=== PATIENT | female | born 1950 | race Caucasian/White ===

== ENCOUNTER → 2020-06-28 14:18 | Outpatient (REF) | payer MEDICARE, SELFPAY ==
--- NOTE | 2020-06-28 14:00 | CA_ITS ---
Transthoracic Echocardiogram Patient (Last, First, Middle): Mary Luo Godwin Z Gender: Female Date of : 1950 Age: 69 Procedure Date: 06/28/2020 Procedure Type: Transthoracic Echocardiogram Location: OP Height: 160.02 cm Weight: 104.33 kg BSA: 2.05 m2 Heart Rate: bpm BP: 128 / 70 mmHg Shaft Tender: Referring MD: Glenn Adames MD Symptoms: R07.2 PRECORDIAL CHEST PAIN I25.10 ASCD Study Quality: Fair ECG Rhythm: Sinus Conclusions: - The left ventricular systolic function is normal. The visually estimated ejection fraction is between 65-70%. - There is mild calcification of the aortic valve. - There is mild mitral annular calcification. - There is mild dilatation of the ascending aorta measuring 3.90 cm. Findings Left Ventricle Normal left ventricular cavity size. There is mildly increased left ventricular wall thickness. The left ventricular systolic function is normal. The visually estimated ejection fraction is between 65-70%. There is no evidence of regional wall motion abnormalities. E/E prime ratio is <8, consistent with normal filling pressures. Evidence suggests grade I (mild) diastolic dysfunction. Right Ventricle Normal right ventricular cavity size and systolic function. Atria The left atrium is moderately dilated. The right atrium is mildly dilated. Aortic Valve There is a normal trileaflet aortic valve. There is mild calcification of the aortic valve. There is no aortic valve stenosis. There is trace (trivial) aortic valve regurgitation. Mitral Valve There is mild mitral annular calcification. There is trace mitral valve regurgitation. There is no mitral valve stenosis. Pulmonic Valve The pulmonic valve was not well visualized. There is trace pulmonic valve regurgitation. Tricuspid Valve Normal tricuspid valve structure. There is trace tricuspid valve regurgitation. The pulmonary artery systolic pressure is normal. Great Vessels There is mild dilatation of the ascending aorta measuring 3.90 cm. Venous The inferior vena cava is normal in size and collapses greater than 50% with inspiration. Pericardium/Pleural There is no evidence of pericardial effusion. Prior Study Comparison No significant change compared to prior study dated: 05/11/2019. Measurements 2D Linear Measurements IVSd: 1.42 0.6-0.9/0.6-1.0 cm LVIDd: 3.58 3.9-5.3/4.2-5.9 cm LVIDd Index: 1.75 2.4-3.2/2.2-3.1 cm/m2 LVIDs: 2.31 2.0-3.6 cm LVPWd: 1.44 0.7-1.1 cm Ao Root: 3.70 2.1-3.5 cm LA Diam: 3.70 2.7-3.8/3.0-4.0 cm LAIDs Index: 1.80 1.5-2.3 cm/m2 LV Mass: 230.06 67-162/88-224 g LV Mass Index: 112.22 43-95/49-115 g/m2 LVOT Diam: 2.30 3.0+(-)1.3 cm Mitral Valve MV Pk E: 0.57 MV PK A: 0.71 MV Decel Time: 261.00 E/A: 0.80 E'Lateral: 6.00 E'Medial: 7.54 E/E' Med: 7.60 E/E' Lat: 9.50 PHT: 76.00 MVA PHT: 2.89 Decel Cambria: 2.20 Aortic Valve AoV Pk Hugh: 1.48 AoV Mn Hugh: 0.99 AoV VTI: 0.32 AoV Pk Grad: 9.00 Aov Mn Grad: 5.00 MICKY Cont.VTI: 2.88 LVOT LVOT Pk Hugh: 0.83 LVOT Mn Hugh: 0.54 LVOT VTI: 0.22 LVOT Pk Grad: 3.00 LVOT Mn Grad: 1.00 LVOT Diam: 2.30 LVOT Area: 4.15 Diastolic Function MV Pk E: 0.57 MV Pk A: 0.71 E/A: 0.80 E'Medial: 7.54 E/E' Med: 7.60 E' Laterial: 6.00 E/E' Lat: 9.50 Tricuspid Valve TR Pk Hugh: 2.14 TR Pk Grad: 18.00 Great Vessels Aorta Ao Root-2D: 3.70 2.0-3.7 cm Ao Asc: 3.90 2.1-3.4 cm Pulmonary Valve PV Pk Hugh: 1.05 Peak PV Grad: 4.00 Updated in Other Vendor System with Status of Final Glenn Adames MD electronically signed on 06/30/2020 10:17:12 AM with status of Final
== END ==
LOC: HO.CARD 14:18
PROVIDERS: PCP Internal Medicine; Visit Provider Internal Medicine
DX: R07.2 Precordial pain (principal); I25.10 Atherosclerotic heart disease of native coronary artery without angina pectoris
CPT/HCPCS: 93306

== ENCOUNTER 2020-07-22 12:07 | Emergency (ER) | payer MEDICARE, SELFPAY ==
--- NOTE | 2020-07-22 | ECG_ITS ---
Test Reason : SOB Blood Pressure : / mmHG Vent. Rate : 071 BPM Atrial Rate : 071 BPM P-R Int : 154 ms QRS Dur : 084 ms QT Int : 412 ms P-R-T Axes : 029 -17 033 degrees QTc Int : 447 ms Normal sinus rhythm Normal ECG When compared with ECG of 27-SEP-2019 08:54, No significant change was found Referred By: Generic ED Physician Electronically Signed By:Asif Zhao
[2020-07-22 12:55] VITALS: BP 137/60; PULSE 63; RESP 14; TEMP 37; O2SAT 96; BMI 114.4
--- NOTE | 2020-07-22 13:01 | XR_ITS ---
EXAMINATION: XR CHEST CLINICAL INFORMATION: Chest pain COMPARISON: 07/25/2018 TECHNIQUE: Frontal view of the chest was obtained. FINDINGS: Stable mild to moderate cardiomegaly. No focal consolidation, edema or pneumothorax. Possible trace left pleural effusion. No acute osseous abnormality. Degenerative changes of bilateral shoulders. XR/XR chest 1V IMPRESSION: 1. Cardiomegaly without overt pulmonary edema. 2. No focal consolidation is seen. Possible trace left pleural effusion.
--- NOTE | 2020-07-22 13:03 | ED.CHESTPAIN ---
HPI - Chest Pain General Chief Complaint: Chest Pain Stated Complaint: chest pain Time Seen by Provider: 07/22/20 13:01 Source: patient Mode of arrival: ambulatory History of Present Illness HPI narrative: 70-year-old female with a past medical history of diabetes, CAD, HTN, hyperlipidemia, awake, osteoporosis, fibromyalgia, anxiety, depression, Recent TTE showing EF of 65-70%, to ED complaining of intermittent chest pain x2 days. Reports increased anxiety at home which she believes precipitates pain. Reports chronic SOB, unchanged. Denies fever, chills, cough, LE edema, recent travel, nausea/vomiting, abdominal pain MD complaint: chest pain Related Data Home Medications Medication Instructions Recorded Confirmed aspirin 1 tab PO BEDTIME 07/22/20 07/22/20 atorvastatin 1 tab PO BEDTIME 07/22/20 07/22/20 calcium carbonate [Oyster Shell 1 tab PO BID 07/22/20 07/22/20 Calcium 500] fenofibrate micronized 1 cap PO QAM 07/22/20 07/22/20 fluoxetine 1 cap PO QAM 07/22/20 07/22/20 fluticasone propionate [Flovent 1 puff PO BID 07/22/20 07/22/20 HFA] glipizide 1 tab PO QAM 07/22/20 07/22/20 hydroxyzine HCl 1 tab PO BID 07/22/20 07/22/20 insulin glargine [Lantus U-100 65 unit SUBCUT QAM 07/22/20 07/22/20 Insulin] metformin 1 tab PO BID 07/22/20 07/22/20 metoprolol succinate 1 tab PO QAM 07/22/20 07/22/20 mirabegron [Myrbetriq] 1 tab PO QAM 07/22/20 07/22/20 oxybutynin chloride 1 tab PO BID 07/22/20 07/22/20 trazodone 1 tab PO BEDTIME 07/22/20 07/22/20 Allergies Allergy/AdvReac Type Severity Reaction Status Date / Time acetaminophen Allergy Unknown hallucinati Verified 07/22/20 13:46 [Tylenol-Codeine] ons codeine [CODEINE] Allergy Unknown HALLUCINATI Verified 07/22/20 13:46 ONS Review of Systems Review of Systems: Constitutional: No Weight loss, No Fever, No Chills Cardiovascular: + Chest Pain, Chronic SOB, No Dyspnea on Exertion, No Edema, No Palpitations Respiratory: No Cough, No Sputum, No Dyspnea Gastrointestinal: No Nausea, No Vomiting, No Abdominal pain Musculoskeletal: No joint pain, No Myalgias, No Joint Swelling Skin: No Skin Lesions, No rash Neuro: No Weakness, No Numbness, No Paresthesias Psych: + Anxiety Yes all other systems are reviewed and are negative [facility] Past Medical History Attestation statement: The following information was validated with the patient. Medical History (Updated 07/22/20 @ 17:30 by CARLOS Zafar) Arthritis Asthma Diabetes mellitus Fibromyalgia Hypertension Osteoporosis Surgical History (Updated 07/22/20 @ 13:04 by Chelsi Sánchez) History of hernia repair Social History Social History Alcohol intake: never Smoking Status: Never smoker Use of substances other than those prescribed or required for medical reasons: No Advance Directives: No Advance Directives Information Provided: Yes Physical Exam Vital Signs: Vital Signs: Last Vital Signs Temp 98.6 F 07/22/20 12:55 Pulse 63 07/22/20 12:55 Resp 14 07/22/20 12:55 BP 137/60 07/22/20 12:55 Pulse Ox 96 07/22/20 12:55 Body Mass Index 114.4 Const: General: cooperative, healthy appearing and anxious Orientation/consciousness: patient oriented x3 Limitations: no limitations HENMT: Head: Yes normal to inspection Ears: hearing grossly normal bilaterally General nose exam: Normal external nose present Face and sinus: Yes normal facial exam Eyes: General: appearance normal, both eyes and all related structures EOM: EOMs intact bilaterally Neck: Neck: Yes normal visual inspection Chest: Other: CP reproducible on exam Chest palpation & inspection: no crepitus Resp: Effort & Inspection: normal respiratory effort Auscultation: clear to auscultation bilaterally, no rales, no rhonchi and no wheezes Cardio: Rate: regular rate Heart sounds: S1 normal heart sound present and S2 normal heart sound present GI: Inspection: Yes normal to inspection Palpation (GI): Soft to palpation, nontender, no guarding and not rigid Skin: Rashes: no rashes Wounds: no wounds Neuro: General: patient oriented x3 Extrem: Other: no LE edema or calf ttp General: Yes normal to inspection Course Course Course Narrative: Glucose noted to be 357, no anion gap, acetone added > Will give 5 units IV insulin 1416- troponin 6.4> will need 3 hour repeat CXR with cardiomegaly without overt pulmonary edema. No focal consolidation. Possible trace left pleural effusion 1654--repeat troponin 6.2 > [place] unlikely Repeat fingerstick to 44 Lab and imaging results discussed with patient including worrisome signs and symptoms and strict return precautions with brand ambassador promotional model. Patient verbalized understanding feel safe for discharge home. Reports symptomatic improvement in the ED MDM - Chest Pain MDM Narrative Medical decision making narrative: 70-year-old female with a past medical history of diabetes, CAD, HTN, hyperlipidemia, awake, osteoporosis, fibromyalgia, anxiety, depression, Recent TTE showing EF of 65-70%, to ED complaining of intermittent chest pain x2 days. On exam VSS, NAD, anxious, CP reproducible, lungs CTA. Patient is nontoxic appearing. Concern for anxiety reaction. Symptoms atypical for ACS or PE. Low concern for CHF/pneumonia Plan: EKG, labs, CXR, Ativan, reassess Lab Data Result diagrams: 07/22/20 13:21 07/22/20 13:21 Labs: Lab Results 07/22/20 07/22/20 07/22/20 Range/Units 13:21 13:21 13:21 WBC 4.8 (4.8-10.8) X10*3/uL RBC 4.28 (4.20-5.50) X10*6/uL Hgb 12.2 (12.0-16.0) g/dl Hct 36.3 L (37-47) % MCV 84.8 (80-98) fL MCH 28.5 (27.0-33.0) pg MCHC 33.6 (31.0-35.0) g/dl RDW 12.8 (11.0-16.0) % Plt Count 217 (160-400) X10*3/uL MPV 10.7 (9.4-12.3) fL Immature Gran % (Auto) 0.4 (0.0-0.4) % Neut % (Auto) 65.1 (45-73) % Lymph % (Auto) 25.0 (20-40) % [place] % (Auto) 5.3 (2-11) % Eos % (Auto) 3.4 (0-4) % Baso % (Auto) 0.8 (0-2) % Lymph # (Auto) 1.2 (1.2-4.9) X10*3/uL [place] # (Auto) 0.3 (0.1-1.2) X10*3/uL Eos # (Auto) 0.2 (0.0-0.4) X10*3/uL Baso # (Auto) 0.0 (0.0-0.2) X10*3/uL Abs Immat Gran (auto) 0.02 (0.00-0.03) X10*3/uL Absolute Neuts (auto) 3.1 (2.0-8.3) X10*3/uL Absolute Nucleated RBC 0.000 (0.0-0.012) X10*3/uL Nucleated RBC % (auto) 0.0 (0.0-0.2) /100WBC Hold Blue Top SEE NOTE Sodium 136 (135-145) mmol/L Potassium 4.4 (3.3-5.1) mmol/l Chloride 101 (96-108) mmol/L Carbon Dioxide 28 (22-29) mmol/L Anion Gap 11 L (12-20) BUN 22 H (9-16) mg/dL Creatinine 1.00 (0.5-1.4) mg/dL Estim Creat Clear Calc 97.0 Estimated GFR 55 POC Glucose (60-115) mg/dL Random Glucose 357 H* (60-115) mg/dL Calcium 8.3 L (8.4-10.2) mg/dL Magnesium 1.7 (1.6-2.6) mg/dL Total Bilirubin 0.3 (0.0-1.0) mg/dL Direct Bilirubin < 0.2 (0.0-0.5) mg/dL AST 11 (5-31) U/L ALT 7 (0-31) U/L Alkaline Phosphatase 61 (39-117) U/L Troponin I High Sens (<3.5-17.0) ng/L B-Natriuretic Peptide (<100) pg/mL Total Protein 6.6 (6.5-8.0) g/dL Albumin 3.5 (3.5-5.0) g/dL Acetone, Qual Negative (Negative) 07/22/20 07/22/20 07/22/20 Range/Units 13:21 15:32 17:04 WBC (4.8-10.8) X10*3/uL RBC (4.20-5.50) X10*6/uL Hgb (12.0-16.0) g/dl Hct (37-47) % MCV (80-98) fL MCH (27.0-33.0) pg MCHC (31.0-35.0) g/dl RDW (11.0-16.0) % Plt Count (160-400) X10*3/uL MPV (9.4-12.3) fL Immature Gran % (Auto) (0.0-0.4) % Neut % (Auto) (45-73) % Lymph % (Auto) (20-40) % [place] % (Auto) (2-11) % Eos % (Auto) (0-4) % Baso % (Auto) (0-2) % Lymph # (Auto) (1.2-4.9) X10*3/uL [place] # (Auto) (0.1-1.2) X10*3/uL Eos # (Auto) (0.0-0.4) X10*3/uL Baso # (Auto) (0.0-0.2) X10*3/uL Abs Immat Gran (auto) (0.00-0.03) X10*3/uL Absolute Neuts (auto) (2.0-8.3) X10*3/uL Absolute Nucleated RBC (0.0-0.012) X10*3/uL Nucleated RBC % (auto) (0.0-0.2) /100WBC Hold Blue Top Sodium (135-145) mmol/L Potassium (3.3-5.1) mmol/l Chloride (96-108) mmol/L Carbon Dioxide (22-29) mmol/L Anion Gap (12-20) BUN (9-16) mg/dL Creatinine (0.5-1.4) mg/dL Estim Creat Clear Calc Estimated GFR POC Glucose 244 H (60-115) mg/dL Random Glucose (60-115) mg/dL Calcium (8.4-10.2) mg/dL Magnesium (1.6-2.6) mg/dL Total Bilirubin (0.0-1.0) mg/dL Direct Bilirubin (0.0-0.5) mg/dL AST (5-31) U/L ALT (0-31) U/L Alkaline Phosphatase (39-117) U/L Troponin I High Sens 6.4 6.2 (<3.5-17.0) ng/L B-Natriuretic Peptide 90 (<100) pg/mL Total Protein (6.5-8.0) g/dL Albumin (3.5-5.0) g/dL Acetone, Qual (Negative) Discharge Plan Discharge Clinical Impression: Chest pain Patient Disposition: Home, Self-Care Instructions: Chest Pain (ED) Additional Instructions: Your blood work was reassuring today in the ED. Your chest x-ray did not show any pneumonia, did show a small amount of fluid on the left side. You need to follow-up with her color worker. Call them in the morning. You also need to follow-up with her primary care doctor. If her symptoms persist or worsen, of constant chest pain, shortness breath, or develops fever return to the ED Scherer an?lisis de roddy fue reconfortante hoy en el servicio de urgencias. Scherer radiograf?a de t?rax no mostr? neumon?a, mostr? gulshan kika?a cantidad de l?quido en el lado victorino. Debe hacer un seguimiento con scherer cardi?logo. Ll?malos por la ma?sofi. Tambi?n debe hacer un seguimiento con scherer m?dico de atenci?n primaria. Si los s?ntomas persisten o empeoran, dolor de pecho dorita, dificultad para respirar o fiebre, regrese al servicio de urgencias. Based on your symptoms and history we have sent a COVID-19. Although your RESULT IS PENDING at this time. RESULTS should return within 72 hours. At this time you will be contacted with either NEGATIVE OR POSITIVE results. -Please wait until we contact you for your results. At this time you will be okay for discharge. Please plan for self quarantine for up to 14 days. Do not expose yourself to others. You may not go to work. If testing does come back negative you may return to activities as long as you are no longer having any symptoms for at least 3 days. Please continue to follow cold instructions and wash your hands frequently. You may take Tylenol as directed on the bottle for pain or fever. CDC Guidelines for home isolation: - Stay away from others - WEAR A MASK if you are sick AND STAY HOME - Cover your mouth and nose with a tissue when you cough or sneeze. Dispose of tissues in a lined trash can and wash your hands immediately with soap and water for at least 20 seconds. If soap and water are not available, clean hands with alcohol-based hand registered nurse bone marrow transplant that contains at least 60% alcohol. - Clean your hands often with soap and water for at least 20 seconds - Avoid touching your eyes, nose and mouth with unwashed hands - Do not share dishes, drinking glasses, cups, eating utensils, towels, or bedding with other people in your home. After using these items, wash them thoroughly with soap and water or put in the roller skater. - Clean high-touch surfaces in your isolation area ( sick room and bathroom) every day; let a caregiver clean and disinfect high-touch surfaces in other areas of the home. Clean the area or item with soap and water or another detergent if it is dirty. Then, use a household disinfectant. - Limit contact with pets and animals: If you must care for a pet, wash your hands before and after interacting with them) Seg?n kerry s?ntomas e historial, le enviamos un COVID-19. Aunque scherer RESULTADO EST? PENDIENTE en donaldo momento. Los RESULTADOS deben regresar dentro de las 72 horas. En donaldo momento ser? contactado con resultados NEGATIVOS O POSITIVOS. -Espere hasta que nos comuniquemos con usted para conocer kerry resultados. En donaldo momento estar? adrienne para el hazel. Planifique la auto cuarentena tera un m?ximo de 14 d?as. No se exponga a los dem?s. Puede que no vaya a trabajar. Si las pruebas resultan negativas, puede volver a kerry actividades siempre que ya no tenga chana?n s?ntoma tera al menos 3 d?as. Contin?e siguiendo las instrucciones en fr?o y l?vese las khanh con frecuencia. Puede pebbles Tylenol elvia se indica en el frasco para el dolor o la fiebre. [place] de los CDC para el aislamiento en el hogar: - Mantente alejado de los dem?s - USE GULSHAN M?SCARA si est? enfermo Y QUEDE EN CASA - C?brase la boca y la nariz con un pa?uelo cuando tosa o estornude. Deseche los pa?uelos desechables en un bote de basura forrado y l?vese las khanh inmediatamente con agua y jab?n tera al menos 20 segundos. Si no dispone de agua y jab?n, l?vese las khanh con un desinfectante para khanh a base de alcohol que contenga al menos un 60% de alcohol. - L?vese las khanh con frecuencia con agua y jab?n tera al menos 20 segundos - Evite tocarse los ojos, la nariz y la boca con las khanh sin sophia - No comparta platos, vasos, tazas, cubiertos, toallas o ropa de cama con otras personas en scherer hogar. Despu?s de usar estos art?culos, l?velos adrienne con agua y jab?n o p?ngalos en el lavavajillas. - Limpie las superficies de alto contacto en scherer ?maxim de aislamiento ( habitaci?n de enfermo y ba?o) todos los d?as; deje que un cuidador limpie y desinfecte las superficies de alto contacto en otras ?reas de la casa. Limpie el ?maxim o el art?culo con agua y jab?n u otro detergente si est? sucio. Luego, use un desinfectante dom?stico. - Limite el contacto con mascotas y animales: si debe cuidar a gulshan mascota, l?vese las khanh antes y despu?s de interactuar con ellos) Prescriptions: No Action fluoxetine 40 mg capsule 1 cap PO QAM RF: 0 atorvastatin 80 mg tablet 1 tab PO BEDTIME RF: 0 oxybutynin chloride 15 mg tablet extended release 24hr 1 tab PO BID RF: 0 Lantus U-100 Insulin 100 unit/mL solution 65 unit subcut QAM RF: 0 metoprolol succinate 50 mg tablet extended release 24 hr 1 tab PO QAM RF: 0 glipizide 5 mg tablet extended release 24hr 1 tab PO QAM RF: 0 hydroxyzine HCl 50 mg tablet 1 tab PO BID RF: 0 aspirin 81 mg tablet,delayed release (DR/EC) 1 tab PO BEDTIME RF: 0 fenofibrate micronized 134 mg capsule 1 cap PO QAM RF: 0 calcium carbonate [Oyster Shell Calcium 500] 500 mg calcium (1,250 mg) tablet 1 tab PO BID RF: 0 trazodone 100 mg tablet 1 tab PO BEDTIME RF: 0 metformin 1,000 mg tablet 1 tab PO BID RF: 0 Flovent HFA 220 mcg/actuation HFA aerosol inhaler 1 puff PO BID RF: 0 Myrbetriq 50 mg tablet extended release 24 hr 1 tab PO QAM RF: 0 Referrals: Amanda Watkins MD [Primary Care Provider] - 2 days Print Language: English
[2020-07-22 13:27] LABS: MANUAL DIFF FLAG NO
[2020-07-22 13:29] LABS: Basophils Percent Auto 0.8 % (0-2); Eosinophils Absolute Auto 0.2 X10*3/uL (0.0-0.4); Eosinophils Percent Auto 3.4 % (0-4); Hematocrit 36.3 % (37-47); Hemoglobin 12.2 g/dl (12.0-16.0); Imm Gran Abs Auto 0.02 X10*3/uL (0.00-0.03); Imm Gran Pct Auto 0.4 % (0.0-0.4); Lymphocytes Absolute Auto 1.2 X10*3/uL (1.2-4.9); Mean Corpuscular HGB Conc 33.6 g/dl (31.0-35.0); Mean Corpuscular Hemoglobin 28.5 pg (27.0-33.0); Mean Corpuscular Volume 84.8 fL (80-98); Mean Platelet Volume 10.7 fL (9.4-12.3); Monocytes Absolute Auto 0.3 X10*3/uL (0.1-1.2); Monocytes Percent Auto 5.3 % (2-11); Neutrophils Absolute Auto 3.1 X10*3/uL (2.0-8.3); Neutrophils Percent Auto 65.1 % (45-73); Platelet Count 217 X10*3/uL (160-400); Red Blood Count 4.28 X10*6/uL (4.20-5.50); Red Cell Distribution Width 12.8 % (11.0-16.0); White Blood Count 4.8 X10*3/uL (4.8-10.8)
[2020-07-22 13:54] LABS: Alanine Aminotransferase 7 U/L (0-31); Albumin Level 3.5 g/dL (3.5-5.0); Alkaline Phosphatase 61 U/L (39-117); Anion Gap 11 (12-20); Aspartate Amino Transferase 11 U/L (5-31); Bilirubin Direct < 0.2 mg/dL (0.0-0.5); Bilirubin Total 0.3 mg/dL (0.0-1.0); Blood Urea Nitrogen 22 mg/dL (9-16); Calcium 8.3 mg/dL (8.4-10.2); Carbon Dioxide 28 mmol/L (22-29); Chloride 101 mmol/L (96-108); Estimated Glomerular Filt Rate 55; Glucose Random 357 mg/dL (60-115); Magnesium 1.7 mg/dL (1.6-2.6); Potassium 4.4 mmol/l (3.3-5.1); Sodium 136 mmol/L (135-145); Total Protein 6.6 g/dL (6.5-8.0)
[2020-07-22] MEDS: LORazepam 1 MG TABLET PO (13:54)
--- NOTE | 2020-07-22 13:55 | PC.NURSE ---
Patient medicated per emar as noted.
[2020-07-22 14:08] LABS: B Type Natriuretic Peptide 90 pg/mL (<100); Troponin-I High Sensitivity 6.4 ng/L (<3.5-17.0)
[2020-07-22 14:39] LABS: Acetone, serum QL Negative (Negative)
[2020-07-22] MEDS: Insulin Regular, Human 100 UNIT/ML 3 ML VIAL IVPUSH (15:29)
[2020-07-22 16:00] VITALS: BP 162/71; PULSE 63; RESP 19; O2SAT 98
[2020-07-22 16:02] LABS: Troponin-I High Sensitivity 6.2 ng/L (<3.5-17.0)
[2020-07-22 17:07] LABS: Glucose, Whole Blood 244 mg/dL (60-115)
== END 2020-07-22 18:04 | disposition home or self-care (01) ==
PROVIDERS: Physician Assistant; Emergency Provider Internal Medicine; PCP Internal Medicine
DX: R07.9 Chest pain, unspecified (principal); Z20.828 Contact with and (suspected) exposure to other viral communicable diseases; R06.02 Shortness of breath; E11.9 Type 2 diabetes mellitus without complications; I10 Essential (primary) hypertension; J45.909 Unspecified asthma, uncomplicated
CPT/HCPCS: 36415; 71045; 80048; 80076; 82009; 82947; 83735; 83880; 84484; 85025; 93005; 96374; 99284; 99285; U0003

== ENCOUNTER → 2020-12-24 13:51 | Outpatient (BNVA) | payer MEDICARE, SELFPAY | PROVIDERS: PCP Internal Medicine; Visit Provider Urology | DX: Z13.89 Encounter for screening for other disorder (principal) | CPT/HCPCS: 99212 ==

== ENCOUNTER → 2021-04-07 13:38 | Outpatient (BNVA) | payer MEDICARE, SELFPAY | PROVIDERS: PCP Internal Medicine; Referring Provider Internal Medicine; Visit Provider Internal Medicine | DX: I25.10 Atherosclerotic heart disease of native coronary artery without angina pectoris (principal); I10 Essential (primary) hypertension; E78.5 Hyperlipidemia, unspecified; E11.8 Type 2 diabetes mellitus with unspecified complications | CPT/HCPCS: 93005; 99212 ==

== ENCOUNTER → 2021-05-05 11:52 | Outpatient (BNVA) | payer MEDICARE, SELFPAY | PROVIDERS: PCP Internal Medicine; Visit Provider Obstetrics & Gynecology | DX: N81.4 Uterovaginal prolapse, unspecified (principal) | CPT/HCPCS: 99212 ==

== ENCOUNTER → 2021-07-10 10:58 | Outpatient (REF) | payer MEDICARE, SELFPAY ==
--- NOTE | 2021-07-10 11:01 | HM_ITS ---
Total monitoring time 4 days. Underlying rhythm is sinus. Minimum heart rate 48/Min. Maximum 74/Min. Average 56/Min. Rare supraventricular ectopy with the burden of 0.08%. 4 supraventricular episodes, longest 16 beats. Rare ventricular ectopy with the burden of 0.04%. No patient events. MTDD
== END ==
LOC: HO.CARD 10:58
PROVIDERS: Visit Provider Internal Medicine
DX: I25.10 Atherosclerotic heart disease of native coronary artery without angina pectoris (principal); R00.2 Palpitations
CPT/HCPCS: 93242

== ENCOUNTER → 2022-02-12 12:12 | Outpatient (REF) | payer OTHER, SELFPAY ==
--- NOTE | 2022-02-12 12:21 | CA_ITS ---
Transthoracic Echocardiogram Patient (Last, First, Middle): Mary Lou Godwin Z Gender: Female Date of : 1950 Age: 71 Procedure Date: 02/12/2022 Procedure Type: Transthoracic Echocardiogram Location: OP Height: 152.4 cm Weight: 147.87 kg BSA: 2.30 m2 Heart Rate: 61 bpm Cold Molding Press Operator: JANINE Referring MD: Glenn Adames MD Gold Leaf Roller: Sravan Méndez MD Symptoms: I25.10 - Atherosclerotic heart disease of [place] coronary... Study Quality: Technically Difficult ECG Rhythm: Sinus Conclusions: - 1. Normal LV systolic function with mild LVH with grade 2 diastolic dysfunction 2. Mild calcification of aortic valve and mild mitral calcification with mild mitral regurgitation 3. Normal RV systolic pressure 4. No gross pericardial effusion 5. Mildly dilated ascending aorta at 3.9 cm Findings Left Ventricle Normal left ventricular size and systolic function. There is mildly increased left ventricular wall thickness. The visually estimated ejection fraction is between 60-65%. Spectral Doppler is indicative of a pseudonormal filling pattern. Elevated filling pressures. E/E prime ratio is >15, consistent with elevated filling pressures. Evidence suggests grade II (moderate) diastolic dysfunction. Wall Motion Rest Echo Findings The basal inferior and basal inferoseptal segments are akinetic. The anterolateral wall is not visualized. All other scored wall segments showed normal motion. Right Ventricle There is normal right ventricular systolic function. Atria The left atrium is likely dilated. Interatrial shunt cannot be excluded. The right atrium was not well visualized. Aortic Valve There is mild calcification of the aortic valve. There is no aortic valve stenosis. There is no aortic valve regurgitation. Mitral Valve There is moderate anterior and mild posterior mitral leaflet thickening. There is mild mitral annular calcification. There is mild mitral valve regurgitation. There is no mitral valve stenosis. Pulmonic Valve The pulmonic valve was not well visualized. Tricuspid Valve Likely normal tricuspid valve structure and function. There is mild tricuspid valve regurgitation. The right ventricular systolic pressure is normal. Normal right atrial pressure. There is no evidence of pulmonary hypertension. Great Vessels The pulmonary artery was not well visualized. There is mild dilatation of the ascending aorta measuring 3.90 cm. Small plaque is seen in the sino tubular ridge. Venous The inferior vena cava is normal in size and collapses greater than 50% with inspiration. Pericardium/Pleural There is no evidence of pericardial effusion. Prior Study Comparison No significant change compared to prior study dated: 06/28/2020. Measurements 2D Linear Measurements IVSd: 1.18 0.6-0.9/0.6-1.0 cm LVIDd: 4.85 3.9-5.3/4.2-5.9 cm LVIDd Index: 2.11 2.4-3.2/2.2-3.1 cm/m2 LVIDs: 2.53 2.0-3.6 cm LVPWd: 1.24 0.7-1.1 cm LA Diam: 4.50 2.7-3.8/3.0-4.0 cm LAIDs Index: 1.96 1.5-2.3 cm/m2 LV Mass: 278.33 67-162/88-224 g LV Mass Index: 121.01 43-95/49-115 g/m2 LVOT Diam: 2.60 3.0+(-)1.3 cm 2D Systolic Function EF 4C: 57.20 >55% Mitral Valve MV Pk E: 0.99 MV PK A: 0.69 MV Decel Time: 176.00 E/A: 1.40 E'Lateral: 4.65 E'Medial: 4.58 E/E' Med: 21.50 E/E' Lat: 21.20 PHT: 52.00 MVA PHT: 4.23 Decel Ralls: 5.59 Aortic Valve AoV Pk Hugh: 1.70 AoV Mn Hugh: 1.18 AoV VTI: 0.41 AoV Pk Grad: 12.00 Aov Mn Grad: 6.00 MICKY Cont.VTI: 2.82 LVOT LVOT Pk Hugh: 0.87 LVOT Mn Hugh: 0.58 LVOT VTI: 0.22 LVOT Pk Grad: 3.00 LVOT Mn Grad: 2.00 LVOT Diam: 2.60 LVOT Area: 5.31 Diastolic Function MV Pk E: 0.99 MV Pk A: 0.69 E/A: 1.40 E'Medial: 4.58 E/E' Med: 21.50 E' Laterial: 4.65 E/E' Lat: 21.20 Right Ventricle TAPSE (mm): 24.80 TVS' Hugh: 13.60 Tricuspid Valve TR Pk Hugh: 2.90 TR Pk Grad: 34.00 RVSP: 34.00 Great Vessels Aorta Sinus of Valsalva: 3.80 2.0-3.5 cm Ao Asc: 3.90 2.1-3.4 cm Pulmonary Veins Pulm Vein S/D 1.10 Pulmonary Valve PV Pk Hugh: 0.92 Peak PV Grad: 3.00 Updated in Other Vendor System with Status of Final Sravan Méndez MD electronically signed on 02/13/2022 12:22:21 PM with status of Final
== END ==
LOC: HO.CARD 12:12
PROVIDERS: Visit Provider Internal Medicine
DX: I25.10 Atherosclerotic heart disease of native coronary artery without angina pectoris (principal)
CPT/HCPCS: 93306

== ENCOUNTER 2022-02-26 15:01 | Emergency (ER) | payer OTHER, SELFPAY ==
--- NOTE | ~2022-02-26 | XR_ITS ---
EXAMINATION: XR CHEST CLINICAL INFORMATION: Shortness of breath COMPARISON: Chest x-ray 07/22/2020 TECHNIQUE: 2 views of the chest were obtained. FINDINGS: Heart size is enlarged. No change since prior chest x-ray. No acute abnormality. No pulmonary vascular congestion. Lungs are normally aerated. No pleural effusion or pneumothorax. XR/XR chest 2V IMPRESSION: Cardiomegaly. No acute abnormality of chest.
[2022-02-26 16:27] VITALS: BP 121/64; PULSE 62; RESP 18; TEMP 36.9; O2SAT 95; BMI 50.3
--- NOTE | 2022-02-26 16:31 | ECG_ITS ---
Test Reason : CHEST PAIN Blood Pressure : / mmHG Vent. Rate : 062 BPM Atrial Rate : 062 BPM P-R Int : 174 ms QRS Dur : 090 ms QT Int : 428 ms P-R-T Axes : 055 -18 028 degrees QTc Int : 434 ms Normal sinus rhythm Normal ECG When compared with ECG of 22-JUL-2020 12:23, No significant change was found Referred By: Generic ED Physician Electronically Signed By:Asfi Zhao
[2022-02-26 16:57] LABS: MANUAL DIFF FLAG NO
[2022-02-26 16:58] LABS: Basophils Percent Auto 0.5 % (0-2); Eosinophils Absolute Auto 0.2 X10*3/uL (0.0-0.4); Eosinophils Percent Auto 3.6 % (0-4); Hematocrit 36.1 % (37.0-47.0); Hemoglobin 11.9 g/dl (12.0-16.0); Imm Gran Abs Auto 0.03 X10*3/uL (0.00-0.03); Imm Gran Pct Auto 0.5 % (0.0-0.4); Lymphocytes Absolute Auto 1.3 X10*3/uL (1.2-4.9); Lymphocytes Percent Auto 23.8 % (20-40); Mean Corpuscular Hemoglobin 28.8 pg (27.0-33.0); Mean Corpuscular Volume 87.4 fL (80.0-98.0); Mean Platelet Volume 9.9 fL (9.4-12.3); Monocytes Absolute Auto 0.4 X10*3/uL (0.1-1.2); Monocytes Percent Auto 7.3 % (2-11); Neutrophils Absolute Auto 3.6 x10*3/uL (2.0-8.3); Neutrophils Percent Auto 64.3 % (45-73); Platelet Count 211 X10*3/uL (160-400); Red Blood Count 4.13 X10*6/uL (4.20-5.50); Red Cell Distribution Width 13.4 % (11.0-16.0); White Blood Count 5.6 X10*3/uL (4.8-10.8)
[2022-02-26 17:16] LABS: COVID-19 Test Negative (Negative)
[2022-02-26 17:35] LABS: Alanine Aminotransferase 10 U/L (0-31); Albumin Level 3.5 g/dL (3.5-5.0); Alkaline Phosphatase 48 U/L (39-117); Anion Gap 10 (12-20); Aspartate Amino Transferase 14 U/L (5-31); Bilirubin Total 0.2 mg/dL (0.0-1.0); Blood Urea Nitrogen 16 mg/dL (9-16); Calcium 8.7 mg/dL (8.4-10.2); Carbon Dioxide 31 mmol/L (22-29); Chloride 104 mmol/L (96-108); Creatinine Clr Calc Pharmacy 43.4; Estimated Glomerular Filt Rate 42; Glucose Random 192 mg/dL (60-115); Potassium 4.6 mmol/L (3.3-5.1); Sodium 140 mmol/L (135-145); Total Protein 6.3 g/dL (6.5-8.0)
[2022-02-26 17:46] LABS: B Type Natriuretic Peptide 73 pg/mL (<100); Troponin-I High Sensitivity 9.9 ng/L (<3.5-17.0)
--- NOTE | 2022-02-26 18:00 | ED.CHESTPAIN ---
HPI - Chest Pain General Chief Complaint: Chest Pain Stated Complaint: swollen legs, chest pain Time Seen by Provider: 02/26/22 17:10 Source: patient, family (Daughter) and assistant clinical director Mode of arrival: ambulatory Limitations: no limitations History of Present Illness HPI narrative: 71 years old female came in for evaluation of anxiety and insomnia. Patient was recently put on trazodone, patient stated that she get frequent anxiety attacks including mid chest pain. Pain lasts for few seconds with no radiation, no trigger factors only happen when patient is anxious, symptoms is relieved if patient is able to sleep. Patient also been having bilateral lower extremity swelling, patient declined orthopnea or PND however patient sleeps on a recliner for sleeping comfortably. Related Data Home Medications Medication Instructions Recorded Confirmed calcium carbonate 500 mg calcium 1 tab PO BID 07/22/20 04/07/21 (1,250 mg) tablet (Oyster Shell Calcium 500) fluoxetine 40 mg capsule 1 cap PO QAM 07/22/20 04/07/21 fluticasone propionate 220 1 puff PO BID 07/22/20 04/07/21 mcg/actuation HFA aerosol inhaler (Flovent HFA) glipizide 5 mg tablet, extended 1 tab PO QAM 07/22/20 04/07/21 release 24 hr hydroxyzine HCl 50 mg tablet 1 tab PO BID 07/22/20 04/07/21 insulin glargine 100 unit/mL 65 unit subcut QAM 07/22/20 04/07/21 subcutaneous solution (Lantus U-100 Insulin) mirabegron 50 mg tablet,extended 1 tab PO QAM 07/22/20 04/07/21 release 24 hr (Myrbetriq) oxybutynin chloride 15 mg 1 tab PO BID 07/22/20 04/07/21 tablet,extended release 24 hr trazodone 100 mg tablet 1 tab PO BEDTIME 07/22/20 04/07/21 amlodipine 10 mg tablet 10 mg PO DAILY 04/07/21 04/07/21 aspirin 81 mg tablet,delayed 81 mg PO BEDTIME 04/07/21 04/07/21 release atorvastatin 80 mg tablet 80 mg PO BEDTIME 04/07/21 04/07/21 metformin 1,000 mg tablet 1,000 mg PO BID 04/07/21 04/07/21 metoprolol succinate 50 mg 50 mg PO QAM 04/07/21 04/07/21 tablet,extended release 24 hr Previous Rx's Medication Instructions Recorded oxybutynin chloride 15 mg 15 mg PO BID 90 days #180 tabs 10/16/20 tablet,extended release 24 hr mirabegron 50 mg tablet,extended 50 mg PO DAILY 90 days #90 tabs 06/13/21 release 24 hr (Myrbetriq) fenofibrate micronized 134 mg 134 mg PO QAM 90 days #90 caps 12/29/21 capsule Allergies Allergy/AdvReac Type Severity Reaction Status Date / Time codeine [CODEINE] Allergy Unknown HALLUCINATI Verified 02/26/22 16:27 ONS Review of Systems Review of Systems: All other systems are reviewed and are negative Constitutional: Reports as per HPI and Reports no additional constitutional complaints Eyes: Reports as per HPI and Reports no additional eye complaints Reports system reviewed and no additional complaints, except as documented Cardiovascular: Reports as per HPI and Reports no additional cardiovascular complaints Respiratory: Reports as per HPI and Reports no additional respiratory complaints Gastrointestinal: Reports as per HPI and Reports no additional gastrointestinal complaints Genitourinary: Reports no additional female genitourinary complaints Musculoskeletal: Reports no additional musculoskeletal complaints Skin/Breast: Reports system reviewed and no additional complaints, except as docu Psychiatric: Reports no additional psychiatric complaints Endocrine: Reports no additional endocrine complaints Hematologic/Lymphatic: Reports no additional hematologic/lymphatic complaints Allergic/Immunologic: Reports no additional allergic/immunologic complaints Reports system reviewed and no additional complaints, except as documented and Reports Abnormal speech present [facility] Past Medical History Medical History Abuse of non-prescription analgesics Arthritis Asthma Atherosclerotic cardiovascular disease Diabetes mellitus Essential hypertension Fibromyalgia Hypertension Osteoporosis Other and unspecified hyperlipidemia Type 2 diabetes mellitus with unspecified complications Urgency incontinence Surgical History History of hernia repair Social History Social History Alcohol intake: never Patient Tobacco Use Status: Never used Tobacco Use of substances other than those prescribed or required for medical reasons: No Advance Directives: No Advance Directives Information Provided: No Physical Exam Vital Signs: Vital Signs: Last Vital Signs Temp 98.4 F 02/26/22 16:27 Pulse 58 02/26/22 18:35 Resp 20 02/26/22 18:35 BP 161/63 H 02/26/22 18:35 Pulse Ox 94 02/26/22 18:35 O2 Del Method 02/26/22 18:35 BMI result Body Mass Index 50.3 Vital signs have been reviewed as appeared to be correct. Blood pressure normal. Heart rate normal. Respiration rate normal. Temperature normal. Oxygen saturation normal. Appearance: Alert. Oriented X3. No acute distress. Head: Normal external exam. Normocephalic. Atraumatic. No Smith signs noted. No raccoon eyes noted Eyes: PERRLA. EOMI. Conjunctiva and sclera normal. Eyelids normal. ENT: TM's Normal. Pharynx normal. Uvula midline. Moist mucous membranes. No trismus noted. No drooling noted. No muffled voice noted. Neck: Normal inspection. Neck supple. FROM. No adenopathy. Thyroid Normal. No meningeal signs. No neck mass noted. CVS: Normal heart rate and rhythm. Heart sound normal. No murmurs noted. Pulses normal throughout. Respiratory: No respiratory distress. Painless inspiration. Breath sounds normal. No wheezes/rales/rhonchi noted. Chest nontender. No accessory muscle usage noted or decreased air movement noted. Abdomen: Soft and nontender. Bowel sounds normal in all 4 quadrants. No distention noted. No organomegaly noted. No visible injury noted. Back: No CVA tenderness. Full range of motion noted. Skin: Skin warm and dry. Normal skin color. Normal skin turgor. No rashes/lesions/lacerations noted. Extremities: Bilateral +2 lower extremity pitting edema. Extremities exhibit normal range of motion. Extremities nontender. Neuro: Oriented X 3. Cranial nerve exam: II-XII are grossly intact No motor deficit. No sensory deficit. Reflexes normal. Course Course Course Narrative: 71-year-old female brought in by her daughter for evaluation anxiety like symptoms and lower extremity swelling. Labs, physical exam, chest x-ray, EKG not suggesting cardiac underlying for patient's symptoms. Patient now is asymptomatic feels comfortable no difficulty breathing no chest pain will discharge to follow-up with her PCP and discuss with her PCP of discontinuing trazodone. MDM - Chest Pain Medical Records Data Attestation: I reviewed the patient's medical records. Lab Data Attestation: I reviewed the patient's lab results. Result diagrams: 02/26/22 16:48 02/26/22 16:48 Labs: Lab Results 02/26/22 02/26/22 02/26/22 Range/Units 16:48 16:48 16:48 WBC 5.6 (4.8-10.8) X10*3/uL RBC 4.13 L (4.20-5.50) X10*6/uL Hgb 11.9 L (12.0-16.0) g/dl Hct 36.1 L (37.0-47.0) % MCV 87.4 (80.0-98.0) fL MCH 28.8 (27.0-33.0) pg MCHC 33.0 (31.0-35.0) g/dl RDW 13.4 (11.0-16.0) % Plt Count 211 (160-400) X10*3/uL MPV 9.9 (9.4-12.3) fL Immature Gran % (Auto) 0.5 H (0.0-0.4) % Neut % (Auto) 64.3 (45-73) % Lymph % (Auto) 23.8 (20-40) % [place] % (Auto) 7.3 (2-11) % Eos % (Auto) 3.6 (0-4) % Baso % (Auto) 0.5 (0-2) % Lymph # (Auto) 1.3 (1.2-4.9) X10*3/uL [place] # (Auto) 0.4 (0.1-1.2) X10*3/uL Eos # (Auto) 0.2 (0.0-0.4) X10*3/uL Baso # (Auto) 0.0 (0.0-0.2) X10*3/uL Abs Immat Gran (auto) 0.03 (0.00-0.03) X10*3/uL Absolute Neuts (auto) 3.6 (2.0-8.3) x10*3/uL Absolute Nucleated RBC 0.000 (0.0-0.012) X10*3/uL Nucleated RBC % (auto) 0.0 (0.0-0.2) /100WBC Sodium 140 (135-145) mmol/L Potassium 4.6 (3.3-5.1) mmol/L Chloride 104 (96-108) mmol/L Carbon Dioxide 31 H (22-29) mmol/L Anion Gap 10 L (12-20) BUN 16 (9-16) mg/dL Creatinine 1.26 (0.5-1.4) mg/dL Estim Creat Clear Calc 43.4 Estimated GFR 42 Random Glucose 192 H (60-115) mg/dL Calcium 8.7 (8.4-10.2) mg/dL Total Bilirubin 0.2 (0.0-1.0) mg/dL AST 14 (5-31) U/L ALT 10 (0-31) U/L Alkaline Phosphatase 48 D (39-117) U/L Troponin I High Sens 9.9 (<3.5-17.0) ng/L B-Natriuretic Peptide 73 (<100) pg/mL Total Protein 6.3 L (6.5-8.0) g/dL Albumin 3.5 (3.5-5.0) g/dL COVID-19 (ANN) (Negative) COVID-19 Clin Com 02/26/22 02/26/22 Range/Units 16:49 20:28 WBC (4.8-10.8) X10*3/uL RBC (4.20-5.50) X10*6/uL Hgb (12.0-16.0) g/dl Hct (37.0-47.0) % MCV (80.0-98.0) fL MCH (27.0-33.0) pg MCHC (31.0-35.0) g/dl RDW (11.0-16.0) % Plt Count (160-400) X10*3/uL MPV (9.4-12.3) fL Immature Gran % (Auto) (0.0-0.4) % Neut % (Auto) (45-73) % Lymph % (Auto) (20-40) % [place] % (Auto) (2-11) % Eos % (Auto) (0-4) % Baso % (Auto) (0-2) % Lymph # (Auto) (1.2-4.9) X10*3/uL [place] # (Auto) (0.1-1.2) X10*3/uL Eos # (Auto) (0.0-0.4) X10*3/uL Baso # (Auto) (0.0-0.2) X10*3/uL Abs Immat Gran (auto) (0.00-0.03) X10*3/uL Absolute Neuts (auto) (2.0-8.3) x10*3/uL Absolute Nucleated RBC (0.0-0.012) X10*3/uL Nucleated RBC % (auto) (0.0-0.2) /100WBC Sodium (135-145) mmol/L Potassium (3.3-5.1) mmol/L Chloride (96-108) mmol/L Carbon Dioxide (22-29) mmol/L Anion Gap (12-20) BUN (9-16) mg/dL Creatinine (0.5-1.4) mg/dL Estim Creat Clear Calc Estimated GFR Random Glucose (60-115) mg/dL Calcium (8.4-10.2) mg/dL Total Bilirubin (0.0-1.0) mg/dL AST (5-31) U/L ALT (0-31) U/L Alkaline Phosphatase (39-117) U/L Troponin I High Sens 9.9 (<3.5-17.0) ng/L B-Natriuretic Peptide (<100) pg/mL Total Protein (6.5-8.0) g/dL Albumin (3.5-5.0) g/dL COVID-19 (ANN) Negative (Negative) COVID-19 Clin Com See Note Imaging Data Chest x-ray: Attestation: I personally reviewed and interpreted this imaging study as follows: Radiologist's impression: Cardiomegaly. No acute abnormality of chest. ECG Data ECG #1: Attestation: I personally reviewed and interpreted this ECG as follows: Interpretation: Normal sinus rhythm at 62 beats per minutes, left axis deviation, normal intervals, no ST-T changes. No change from previous EKG. Discharge Plan Discharge Clinical Impression: Bilateral edema of lower extremity, Non-cardiac chest pain Patient Disposition: Home, Self-Care Instructions: Edema (ED) Prescriptions: No Action oxybutynin chloride 15 mg tablet extended release 24 hr 15 mg PO BID 90 Days Qty: 180 2RF Myrbetriq 50 mg tablet extended release 24 hr 50 mg PO DAILY 90 Days Qty: 90 2RF fenofibrate micronized 134 mg capsule 134 mg PO QAM 90 Days Qty: 90 3RF fluoxetine 40 mg capsule 1 cap PO QAM oxybutynin chloride 15 mg tablet extended release 24hr 1 tab PO BID Lantus U-100 Insulin 100 unit/mL solution 65 unit subcut QAM glipizide 5 mg tablet extended release 24hr 1 tab PO QAM hydroxyzine HCl 50 mg tablet 1 tab PO BID calcium carbonate [Oyster Shell Calcium 500] 500 mg calcium (1,250 mg) tablet 1 tab PO BID trazodone 100 mg tablet 1 tab PO BEDTIME Flovent HFA 220 mcg/actuation HFA aerosol inhaler 1 puff PO BID Myrbetriq 50 mg tablet extended release 24 hr 1 tab PO QAM atorvastatin 80 mg tablet 80 mg PO BEDTIME aspirin 81 mg tablet,delayed release (DR/EC) 81 mg PO BEDTIME metoprolol succinate 50 mg tablet extended release 24 hr 50 mg PO QAM metformin 1,000 mg tablet 1,000 mg PO BID amlodipine 10 mg tablet 10 mg PO DAILY Referrals: Amanda Watkins MD [Primary Care Provider] -
[2022-02-26 18:35] VITALS: BP 161/63; PULSE 58; RESP 20; O2SAT 94
[2022-02-26 20:58] LABS: Troponin-I High Sensitivity 9.9 ng/L (<3.5-17.0)
== END 2022-02-26 21:17 | disposition home or self-care (01) ==
PROVIDERS: Emergency Provider Emergency Medicine; PCP Internal Medicine
DX: R07.89 Other chest pain (principal); R60.0 Localized edema; F41.9 Anxiety disorder, unspecified; G47.00 Insomnia, unspecified; E11.9 Type 2 diabetes mellitus without complications; I10 Essential (primary) hypertension; E78.5 Hyperlipidemia, unspecified; I25.10 Atherosclerotic heart disease of native coronary artery without angina pectoris; Z20.822 Contact with and (suspected) exposure to COVID-19; Z79.899 Other long term (current) drug therapy; Z79.4 Long term (current) use of insulin; Z79.82 Long term (current) use of aspirin
CPT/HCPCS: 36415; 71046; 80053; 83880; 84484; 85025; 87635; 93005; 99283; 99285

== ENCOUNTER → 2022-03-03 14:57 | Outpatient (BNVA) | payer OTHER, SELFPAY | PROVIDERS: PCP Internal Medicine; Referring Provider Internal Medicine; Visit Provider Internal Medicine | DX: I25.10 Atherosclerotic heart disease of native coronary artery without angina pectoris (principal); I10 Essential (primary) hypertension; E78.5 Hyperlipidemia, unspecified; E11.8 Type 2 diabetes mellitus with unspecified complications; Z79.82 Long term (current) use of aspirin; Z79.899 Other long term (current) drug therapy | CPT/HCPCS: 99212 ==

== ENCOUNTER 2022-04-24 16:02 | Outpatient (REF) | payer OTHER, SELFPAY ==
--- NOTE | ~2022-04-24 | XR_ITS ---
EXAMINATION: XR NASAL BONES CLINICAL INFORMATION: Injury evaluate for nasal fracture COMPARISON: None TECHNIQUE: 3 views of the nasal bones were obtained. FINDINGS: No acute visible fracture or dislocation. Joint spaces and alignment are maintained. Soft tissues are unremarkable. XR/XR nasal bones min 3V IMPRESSION: No acute visible fracture or dislocation.
== END 2022-04-24 16:03 | disposition home or self-care (01) ==
LOC: HO.XRAY 16:02
PROVIDERS: Absent Provider Internal Medicine; PCP Internal Medicine; Visit Provider Internal Medicine Geriatric Medicine
DX: J34.89 Other specified disorders of nose and nasal sinuses (principal); S02.2XXA Fracture of nasal bones, initial encounter for closed fracture
CPT/HCPCS: 70160

== ENCOUNTER 2022-05-13 16:01 | Emergency (ER) | payer OTHER, SELFPAY ==
[2022-05-13 16:25] VITALS: BP 174/79; PULSE 78; RESP 16; TEMP 36.7; O2SAT 93; BMI 44.4
[2022-05-13 16:36] LABS: Glucose, Whole Blood 503 mg/dL (60-115)
[2022-05-13 17:09] LABS: Hematocrit 36.6 % (37.0-47.0); Hemoglobin 12.7 g/dl (12.0-16.0); Mean Corpuscular HGB Conc 34.7 g/dl (31.0-35.0); Mean Corpuscular Hemoglobin 29.6 pg (27.0-33.0); Mean Corpuscular Volume 85.3 fL (80.0-98.0); Mean Platelet Volume 11.2 fL (9.4-12.3); Platelet Count 234 X10*3/uL (160-400); Red Blood Count 4.29 X10*6/uL (4.20-5.50); Red Cell Distribution Width 12.7 % (11.0-16.0); White Blood Count 6.7 X10*3/uL (4.8-10.8)
[2022-05-13 17:18] LABS: Acetone, serum QL Negative (Negative)
[2022-05-13 17:31] LABS: Alanine Aminotransferase 14 U/L (0-31); Albumin Level 3.5 g/dL (3.5-5.0); Alkaline Phosphatase 71 U/L (39-117); Anion Gap 18 (12-20); Aspartate Amino Transferase 16 U/L (5-31); Bilirubin Total 0.3 mg/dL (0.0-1.0); Blood Urea Nitrogen 25 mg/dL (9-16); Calcium 9.4 mg/dL (8.4-10.2); Carbon Dioxide 24 mmol/L (22-29); Chloride 93 mmol/L (96-108); Creatinine Clr Calc Pharmacy 35.9; Estimated Glomerular Filt Rate 35; Glucose Random 600 mg/dL (60-115); Potassium 4.8 mmol/L (3.3-5.1); Sodium 130 mmol/L (135-145); Total Protein 7.1 g/dL (6.5-8.0)
[2022-05-13 20:02] VITALS: BP 132/60; PULSE 69; RESP 20; TEMP 37.1; O2SAT 97
--- NOTE | 2022-05-13 20:10 | ED_ITS ---
HPI - Recheck/Abnormal Lab/Rx General Chief Complaint: Recheck/Abnormal Lab/Rx Stated Complaint: high blood pressure,high sugar Time Seen by Provider: 05/13/22 20:04 Source: patient and family Mode of arrival: ambulatory Limitations: no limitations History of Present Illness HPI narrative: 71-year-old female [place]-speaking only comes with daughter who is [place]- speaking I was able talk to the patient as well and [place] as I am fluent. Presents to emergency department with concerns for blood pressure elevation of blood sugar elevation patient was complaining of some itchiness which is typical when she has an elevated blood sugar patient is very poorly controlled does not watch her daughter checking blood sugars patient has no complaints she denies fevers chills cough nausea vomiting diarrhea but the daughter is concerned she has been gaining weight. Related Data Home Medications Medication Instructions Recorded Confirmed calcium carbonate 500 mg calcium 1 tab PO BID 07/22/20 03/03/22 (1,250 mg) tablet (Oyster Shell Calcium 500) fluoxetine 40 mg capsule 1 cap PO QAM 07/22/20 03/03/22 fluticasone propionate 220 1 puff PO BID 07/22/20 03/03/22 mcg/actuation HFA aerosol inhaler (Flovent HFA) glipizide 5 mg tablet, extended 1 tab PO QAM 07/22/20 03/03/22 release 24 hr hydroxyzine HCl 50 mg tablet 1 tab PO BID 07/22/20 03/03/22 insulin glargine 100 unit/mL 65 unit subcut QAM 07/22/20 03/03/22 subcutaneous solution (Lantus U-100 Insulin) mirabegron 50 mg tablet,extended 1 tab PO QAM 07/22/20 03/03/22 release 24 hr (Myrbetriq) trazodone 100 mg tablet 1 tab PO BEDTIME 07/22/20 03/03/22 amlodipine 10 mg tablet 10 mg PO DAILY 04/07/21 03/03/22 aspirin 81 mg tablet,delayed 81 mg PO BEDTIME 04/07/21 03/03/22 release atorvastatin 80 mg tablet 80 mg PO BEDTIME 04/07/21 03/03/22 metformin 1,000 mg tablet 1,000 mg PO BID 04/07/21 03/03/22 metoprolol succinate 50 mg 50 mg PO QAM 04/07/21 03/03/22 tablet,extended release 24 hr Previous Rx's Medication Instructions Recorded oxybutynin chloride 15 mg 15 mg PO BID 90 days #180 tabs 10/16/20 tablet,extended release 24 hr mirabegron 50 mg tablet,extended 50 mg PO DAILY 90 days #90 tabs 06/13/21 release 24 hr (Myrbetriq) fenofibrate micronized 134 mg 134 mg PO QAM 90 days #90 caps 12/29/21 capsule Allergies Allergy/AdvReac Type Severity Reaction Status Date / Time codeine [CODEINE] Allergy Unknown HALLUCINATI Verified 03/03/22 15:05 ONS Review of Systems Review of Systems: Review of systems: General: Patient denies any fever chills recent illness or falls Musculoskeletal: Denies back pain or body aches or other injuries HEENT: denies headache, runny nose, ear pain Respiratory: denies shortness of breath, cough Cardiovascular: no chest pain or palpitations : denies dysuria, frequency Abdomen: no nausea vomiting denies abdominal pain Extremities: no swelling, no pain Skin: no diaphoresis Yes all other systems are reviewed and are negative PMFSH Past Medical History Medical History Abuse of non-prescription analgesics Arthritis Asthma Atherosclerotic cardiovascular disease Diabetes mellitus Essential hypertension Fibromyalgia Hypertension Osteoporosis Other and unspecified hyperlipidemia Type 2 diabetes mellitus with unspecified complications Urgency incontinence Surgical History History of hernia repair Social History Social History Alcohol intake: never Patient Tobacco Use Status: Never used Tobacco Advance Directives: No Advance Directives Information Provided: No Physical Exam Vital Signs: Vital Signs: Last Vital Signs Temp 98.7 F 05/13/22 20:02 Pulse 69 05/13/22 20:02 Resp 20 05/13/22 20:02 BP 132/60 05/13/22 20:02 Pulse Ox 97 05/13/22 20:02 O2 Del Method 05/13/22 20:02 BMI result Body Mass Index 44.4 General: Well-appearing well-nourished in no signs of distress HEENT: Normocephalic atraumatic Neck: No signs of JVD, no masses no tenderness or lymphadenopathy Cardiovascular: Regular rate and rhythm Respiratory: Clear to auscultation bilaterally Abdomen: Soft nontender no masses Extremities: Normal pedal pulses no signs of edema Skin: Dry warm no rashes Back: No tenderness full ROM MDM - Recheck/Abnormal Lab/Rx MDM Narrative Medical decision making narrative: Patient has elevated blood sugar I will give the patient 10 units of insulin will give a L of fluid and recheck labs. Blood sugar in improved I will give another 10 units and discharge home. Medical Records Attestation: I reviewed the patient's medical records. Lab Data Attestation: I reviewed the patient's lab results. Result diagrams: 05/13/22 16:48 05/13/22 16:48 Labs: Lab Results 05/13/22 05/13/22 05/13/22 Range/Units 16:32 16:48 16:48 WBC 6.7 (4.8-10.8) X10*3/uL RBC 4.29 (4.20-5.50) X10*6/uL Hgb 12.7 (12.0-16.0) g/dl Hct 36.6 L (37.0-47.0) % MCV 85.3 (80.0-98.0) fL MCH 29.6 (27.0-33.0) pg MCHC 34.7 (31.0-35.0) g/dl RDW 12.7 (11.0-16.0) % Plt Count 234 (160-400) X10*3/uL MPV 11.2 (9.4-12.3) fL Absolute Nucleated RBC 0.000 (0.0-0.012) X10*3/uL Nucleated RBC % (auto) 0.0 (0.0-0.2) /100WBC Sodium 130 L (135-145) mmol/L Potassium 4.8 (3.3-5.1) mmol/L Chloride 93 L (96-108) mmol/L Carbon Dioxide 24 (22-29) mmol/L Anion Gap 18 (12-20) BUN 25 H D (9-16) mg/dL Creatinine 1.47 H (0.5-1.4) mg/dL Estim Creat Clear Calc 35.9 Estimated GFR 35 POC Glucose 503 H* (60-115) mg/dL Random Glucose 600 H* D (60-115) mg/dL Calcium 9.4 D (8.4-10.2) mg/dL Total Bilirubin 0.3 (0.0-1.0) mg/dL AST 16 (5-31) U/L ALT 14 (0-31) U/L Alkaline Phosphatase 71 D (39-117) U/L Total Protein 7.1 (6.5-8.0) g/dL Albumin 3.5 (3.5-5.0) g/dL Acetone, Qual (Negative) 05/13/22 05/13/22 Range/Units 16:48 20:28 WBC (4.8-10.8) X10*3/uL RBC (4.20-5.50) X10*6/uL Hgb (12.0-16.0) g/dl Hct (37.0-47.0) % MCV (80.0-98.0) fL MCH (27.0-33.0) pg MCHC (31.0-35.0) g/dl RDW (11.0-16.0) % Plt Count (160-400) X10*3/uL MPV (9.4-12.3) fL Absolute Nucleated RBC (0.0-0.012) X10*3/uL Nucleated RBC % (auto) (0.0-0.2) /100WBC Sodium (135-145) mmol/L Potassium (3.3-5.1) mmol/L Chloride (96-108) mmol/L Carbon Dioxide (22-29) mmol/L Anion Gap (12-20) BUN (9-16) mg/dL Creatinine (0.5-1.4) mg/dL Estim Creat Clear Calc Estimated GFR POC Glucose 470 H* (60-115) mg/dL Random Glucose (60-115) mg/dL Calcium (8.4-10.2) mg/dL Total Bilirubin (0.0-1.0) mg/dL AST (5-31) U/L ALT (0-31) U/L Alkaline Phosphatase (39-117) U/L Total Protein (6.5-8.0) g/dL Albumin (3.5-5.0) g/dL Acetone, Qual Negative (Negative) Discharge Plan Discharge Clinical Impression: Acute hyperglycemia Patient Disposition: Home, Self-Care Instructions: Diabetic Hyperglycemia (ED) Additional Instructions: Please call to follow up for your blood sugar. If you have any other concerns please return to the ED. Prescriptions: No Action oxybutynin chloride 15 mg tablet extended release 24 hr 15 mg PO BID 90 Days Qty: 180 2RF Myrbetriq 50 mg tablet extended release 24 hr 50 mg PO DAILY 90 Days Qty: 90 2RF fenofibrate micronized 134 mg capsule 134 mg PO QAM 90 Days Qty: 90 3RF fluoxetine 40 mg capsule 1 cap PO QAM Lantus U-100 Insulin 100 unit/mL solution 65 unit subcut QAM glipizide 5 mg tablet extended release 24hr 1 tab PO QAM hydroxyzine HCl 50 mg tablet 1 tab PO BID calcium carbonate [Oyster Shell Calcium 500] 500 mg calcium (1,250 mg) tablet 1 tab PO BID trazodone 100 mg tablet 1 tab PO BEDTIME Flovent HFA 220 mcg/actuation HFA aerosol inhaler 1 puff PO BID Myrbetriq 50 mg tablet extended release 24 hr 1 tab PO QAM atorvastatin 80 mg tablet 80 mg PO BEDTIME aspirin 81 mg tablet,delayed release (DR/EC) 81 mg PO BEDTIME metoprolol succinate 50 mg tablet extended release 24 hr 50 mg PO QAM metformin 1,000 mg tablet 1,000 mg PO BID amlodipine 10 mg tablet 10 mg PO DAILY
[2022-05-13] MEDS: Insulin Lispro 100 UNIT/ML 3 ML VIAL 10 UNIT SUBCUT ×2 (20:28→21:25)
[2022-05-13] MEDS: 0.9 % Sodium Chloride 1,000 ML 999 ML IV (20:30)
[2022-05-13 20:53] LABS: Glucose, Whole Blood 470 mg/dL (60-115)
[2022-05-13 21:14] LABS: Glucose, Whole Blood 444 mg/dL (60-115)
[2022-05-13 21:48] LABS: Insulin 61 uU/mL (2-29)
== END 2022-05-13 21:22 | disposition home or self-care (01) ==
PROVIDERS: Emergency Provider Student in an Organized Health Care Education/Training Program; PCP Internal Medicine
DX: R79.89 Other specified abnormal findings of blood chemistry (principal); E11.65 Type 2 diabetes mellitus with hyperglycemia; Z79.899 Other long term (current) drug therapy; Z79.4 Long term (current) use of insulin
CPT/HCPCS: 36415; 80053; 82009; 82947; 83525; 85027; 99283; 99284

== ENCOUNTER 2022-10-24 12:43 | Emergency (ER) | payer OTHER, SELFPAY ==
--- NOTE | ~2022-10-24 | XR_ITS ---
EXAMINATION: XR KNEE, LEFT CLINICAL INFORMATION: Left knee pain. COMPARISON: None available. TECHNIQUE: Four views of the left knee. FINDINGS: Mild segmental degenerative joint changes are seen. There is no acute fracture or dislocation. Possible trace suprapatellar joint effusion. Mild surrounding soft tissue swelling. XR/XR knee LT 3V IMPRESSION: 1. Mild degenerative joint changes suggesting osteoarthritis. 2. Possible trace suprapatellar joint effusion and mild surrounding soft tissue swelling. No acute fracture.
[2022-10-24 12:47] VITALS: BP 170/74; BP 190/90; PULSE 78; RESP 20; TEMP 37.7; O2SAT 95; O2SAT 96; BMI 43.6
[2022-10-24] MEDS: oxyCODONE HCl Immed Release 5 MG TABLET PO ×2 (13:53→19:00)
[2022-10-24 16:26] LABS: Appearance Urine Clear; Color Urine Yellow; Glucose Urine UA >=1000 mg/dL (Negative); Leukocyte Esterase Urine Trace (Negative); Nitrite Urine Positive (Negative); UMIC TRIGGER UACC YES; Urine Blood Trace (Negative); Urine Ketones Negative (Negative); Urine Protein 300 (3+) mg/dL (Neg-Trace)
[2022-10-24 16:31] LABS: Bacteria Urine 3+ (None Seen); Hyaline Casts Urine 0-2 /LPF (0-2); RBC Urine 0-2 /HPF (0-2); UACC Culture Trigger YES; WBC Urine 21-50 /HPF (0-5)
--- NOTE | 2022-10-24 16:59 | ED.GENADULT ---
HPI - General Adult General Chief complaint: Extremity Injury, Lower Stated complaint: Anxiety per EMS Time Seen by Provider: 10/24/22 12:46 History of Present Illness HPI narrative: Patient with 2 complaints, 1st complaint is left knee pain without injury that has been slowly getting worse over several days, she denies any fevers or redness to the knee, she is able to walk on it with a limp Next complaint is burning with urination for several days, there is no associated flank pain or back pain no fever no vomiting, but she does have some frequency of urination as well Denies nausea denies vomiting denies fever denies chest pain denies blood in the urine denies any leg swelling Related Data Home Medications Medication Instructions Recorded Confirmed calcium carbonate 500 mg calcium 1 tab PO BID 07/22/20 03/03/22 (1,250 mg) tablet (Oyster Shell Calcium 500) fluoxetine 40 mg capsule 1 cap PO QAM 07/22/20 03/03/22 fluticasone propionate 220 1 puff PO BID 07/22/20 03/03/22 mcg/actuation HFA aerosol inhaler (Flovent HFA) glipizide 5 mg tablet, extended 1 tab PO QAM 07/22/20 03/03/22 release 24 hr hydroxyzine HCl 50 mg tablet 1 tab PO BID 07/22/20 03/03/22 insulin glargine 100 unit/mL 65 unit subcut QAM 07/22/20 03/03/22 subcutaneous solution (Lantus U-100 Insulin) mirabegron 50 mg tablet,extended 1 tab PO QAM 07/22/20 03/03/22 release 24 hr (Myrbetriq) trazodone 100 mg tablet 1 tab PO BEDTIME 07/22/20 03/03/22 amlodipine 10 mg tablet 10 mg PO DAILY 04/07/21 03/03/22 aspirin 81 mg tablet,delayed 81 mg PO BEDTIME 04/07/21 03/03/22 release atorvastatin 80 mg tablet 80 mg PO BEDTIME 04/07/21 03/03/22 metformin 1,000 mg tablet 1,000 mg PO BID 04/07/21 03/03/22 metoprolol succinate 50 mg 50 mg PO QAM 04/07/21 03/03/22 tablet,extended release 24 hr Previous Rx's Medication Instructions Recorded oxybutynin chloride 15 mg 15 mg PO BID 90 days #180 tabs 10/16/20 tablet,extended release 24 hr mirabegron 50 mg tablet,extended 50 mg PO DAILY 90 days #90 tabs 06/13/21 release 24 hr (Myrbetriq) fenofibrate micronized 134 mg 134 mg PO QAM 90 days #90 caps 12/29/21 capsule cefuroxime axetil 250 mg tablet 250 mg PO BID 5 days #10 tabs 10/24/22 oxycodone 5 mg tablet 5 mg PO Q6H PRN pain #7 tabs 10/24/22 Allergies Allergy/AdvReac Type Severity Reaction Status Date / Time codeine [CODEINE] Allergy Unknown HALLUCINATI Verified 03/03/22 15:05 [facility] Past Medical History Source: nursing notes reviewed Medical History Abuse of non-prescription analgesics Arthritis Asthma Atherosclerotic cardiovascular disease Diabetes mellitus Essential hypertension Fibromyalgia Hypertension Osteoporosis Other and unspecified hyperlipidemia Type 2 diabetes mellitus with unspecified complications Urgency incontinence Surgical History History of hernia repair Social History Social History Alcohol intake: never Patient Tobacco Use Status: Never used Tobacco Advance Directives: No Advance Directives Information Provided: Yes Physical Exam ED Vital Signs: Vital Signs - 24 hr 10/24/22 12:47 Temperature 99.8 F Pulse Rate 78 Respiratory Rate 20 Blood Pressure 170/74 H Pulse Oximetry 96 Oxygen Delivery Method Room Air BMI result Body Mass Index 43.6 General appearance no acute distress Head is normocephalic atraumatic The eyes anicteric no pallor The pharynx is clear mucous membranes moist Neck is supple Chest clear to auscultation bilateral Abdomen is soft and nontender no rebound no guarding The back no CVA tenderness Extremities no edema no calf tenderness or swelling Left knee exam the left knee extends to 180, flexes to around 90, she can do a straight leg raise there is no redness no obvious effusion, skin is intact neurovascular intact distal no ligamentous laxity Course Course Course Narrative: X-ray of the left knee did show arthritis, but no acute fracture, Exam of the knee showed no redness no effusion, patient could extend 180 in flex to about 90 no evidence of joint infection Urinalysis showed positive nitrites, 21-50 wbc's, and 3+ bacteria so given she is symptomatic she is treated for UTI Patient was able to ambulate from the emergency room with a limp Medications Administered Discontinued Medications Generic Name Dose Route Start Last Admin Trade Name Freq PRN Reason Stop Dose Admin Cefuroxime Axetil 250 mg 10/24/22 18:38 10/24/22 19:00 Cefuroxime Axetil 250 Mg Tablet PO 10/24/22 18:39 250 mg ONCE ONE Administration Oxycodone HCl 5 mg 10/24/22 13:37 10/24/22 13:53 Oxycodone Hcl Immed Release 5 Mg Tablet PO 10/24/22 13:38 5 mg ONCE ONE Administration Oxycodone HCl 5 mg 10/24/22 18:39 10/24/22 19:00 Oxycodone Hcl Immed Release 5 Mg Tablet PO 10/24/22 18:40 5 mg ONCE ONE Administration Medical Decision Making Lab Data [facility] Lab Attestation statement: I reviewed the patient's lab results. 10/24/22 17:21 10/24/22 17:21 Labs: Lab Results 10/24/22 10/24/22 10/24/22 Range/Units 16:18 17:21 17:21 WBC 6.8 (4.8-10.8) X10*3/uL RBC 4.36 (4.20-5.50) X10*6/uL Hgb 12.6 (12.0-16.0) g/dl Hct 36.9 L (37.0-47.0) % MCV 84.6 (80.0-98.0) fL MCH 28.9 (27.0-33.0) pg MCHC 34.1 (31.0-35.0) g/dl RDW 12.9 (11.0-16.0) % Plt Count 221 (160-400) X10*3/uL MPV 11.0 (9.4-12.3) fL Immature Gran % (Auto) 0.4 (0.0-0.4) % Neut % (Auto) 63.2 (45-73) % Lymph % (Auto) 24.5 (20-40) % [place] % (Auto) 7.8 (2-11) % Eos % (Auto) 3.2 (0-4) % Baso % (Auto) 0.9 (0-2) % Lymph # (Auto) 1.7 (1.2-4.9) X10*3/uL [place] # (Auto) 0.5 (0.1-1.2) X10*3/uL Eos # (Auto) 0.2 (0.0-0.4) X10*3/uL Baso # (Auto) 0.1 (0.0-0.2) X10*3/uL Abs Immat Gran (auto) 0.03 (0.00-0.03) X10*3/uL Absolute Neuts (auto) 4.3 (2.0-8.3) x10*3/uL Absolute Nucleated RBC 0.000 (0.0-0.012) X10*3/uL Nucleated RBC % (auto) 0.0 (0.0-0.2) /100WBC Sodium 139 (135-145) mmol/L Potassium 4.1 (3.3-5.1) mmol/L Chloride 104 (96-108) mmol/L Carbon Dioxide 26 (22-29) mmol/L Anion Gap 13 (12-20) BUN 19 H (9-16) mg/dL Creatinine 1.01 (0.5-1.4) mg/dL Estim Creat Clear Calc 55.3 Estimated GFR 54 Random Glucose 224 H (60-115) mg/dL Calcium 9.0 (8.4-10.2) mg/dL Urine Color Yellow Urine Appearance Clear Urine pH 6.0 (5.0-9.0) Ur Specific [place] 1.020 (1.005-1.025) Urine Protein 300 (3+) H (Neg-Trace) mg/dL Urine Glucose (UA) >=1000 H (Negative) mg/dL Urine Ketones Negative (Negative) mg/dL Urine Blood Trace H (Negative) Urine Nitrite Positive H (Negative) Ur Leukocyte Esterase Trace H (Negative) Urine RBC 0-2 (0-2) /HPF Urine WBC 21-50 H (0-5) /HPF Ur Squamous Epith Cells 3-5 (0-2) /HPF Urine Bacteria 3+ (None Seen) Hyaline Casts 0-2 (0-2) /LPF Discharge Plan Discharge Clinical Impression: Acute UTI, Arthralgia of left knee Patient Disposition: Home, Self-Care Additional Instructions: X-ray showed arthritis in the left knee but there is no sign of infection no fracture circulation is good nothing dangerous Use oxycodone and Tylenol if needed Urine was positive for infection so we are treating with cefuroxime antibiotic for 5 days Return any time for fever vomiting worsening pain any worse condition or any concerns Follow with her doctor if urine symptoms are not better next week For knee follow with orthopedist Prescriptions: New cefuroxime axetil 250 mg tablet 250 mg PO BID 5 Days Qty: 10 0RF oxycodone 5 mg tablet 5 mg PO Q6H PRN (Reason: pain) Qty: 7 0RF Rx Instructions: Partial Fill upon patient request. No Action oxybutynin chloride 15 mg tablet extended release 24 hr 15 mg PO BID 90 Days Qty: 180 2RF Myrbetriq 50 mg tablet extended release 24 hr 50 mg PO DAILY 90 Days Qty: 90 2RF fenofibrate micronized 134 mg capsule 134 mg PO QAM 90 Days Qty: 90 3RF fluoxetine 40 mg capsule 1 cap PO QAM Lantus U-100 Insulin 100 unit/mL solution 65 unit subcut QAM glipizide 5 mg tablet extended release 24hr 1 tab PO QAM hydroxyzine HCl 50 mg tablet 1 tab PO BID calcium carbonate [Oyster Shell Calcium 500] 500 mg calcium (1,250 mg) tablet 1 tab PO BID trazodone 100 mg tablet 1 tab PO BEDTIME Flovent HFA 220 mcg/actuation HFA aerosol inhaler 1 puff PO BID Myrbetriq 50 mg tablet extended release 24 hr 1 tab PO QAM atorvastatin 80 mg tablet 80 mg PO BEDTIME aspirin 81 mg tablet,delayed release (DR/EC) 81 mg PO BEDTIME metoprolol succinate 50 mg tablet extended release 24 hr 50 mg PO QAM metformin 1,000 mg tablet 1,000 mg PO BID amlodipine 10 mg tablet 10 mg PO DAILY Referrals: Carter Goldsmith MD [Physician] - (Left knee osteoarthritis) Interventions: ED Discharge Assessment Last Done: 10/24/22 19:02 Discharge Date/Time: 10/24/22 19:03
[2022-10-24 17:27] LABS: MANUAL DIFF FLAG NO
[2022-10-24 17:28] LABS: Basophils Absolute Auto 0.1 X10*3/uL (0.0-0.2); Basophils Percent Auto 0.9 % (0-2); Eosinophils Absolute Auto 0.2 X10*3/uL (0.0-0.4); Eosinophils Percent Auto 3.2 % (0-4); Hematocrit 36.9 % (37.0-47.0); Hemoglobin 12.6 g/dl (12.0-16.0); Imm Gran Abs Auto 0.03 X10*3/uL (0.00-0.03); Imm Gran Pct Auto 0.4 % (0.0-0.4); Lymphocytes Absolute Auto 1.7 X10*3/uL (1.2-4.9); Lymphocytes Percent Auto 24.5 % (20-40); Mean Corpuscular HGB Conc 34.1 g/dl (31.0-35.0); Mean Corpuscular Hemoglobin 28.9 pg (27.0-33.0); Mean Corpuscular Volume 84.6 fL (80.0-98.0); Monocytes Absolute Auto 0.5 X10*3/uL (0.1-1.2); Monocytes Percent Auto 7.8 % (2-11); Neutrophils Absolute Auto 4.3 x10*3/uL (2.0-8.3); Neutrophils Percent Auto 63.2 % (45-73); Platelet Count 221 X10*3/uL (160-400); Red Blood Count 4.36 X10*6/uL (4.20-5.50); Red Cell Distribution Width 12.9 % (11.0-16.0); White Blood Count 6.8 X10*3/uL (4.8-10.8)
[2022-10-24 17:42] LABS: Anion Gap 13 (12-20); Blood Urea Nitrogen 19 mg/dL (9-16); Carbon Dioxide 26 mmol/L (22-29); Chloride 104 mmol/L (96-108); Creatinine Clr Calc Pharmacy 55.3; Estimated Glomerular Filt Rate 54; Glucose Random 224 mg/dL (60-115); Potassium 4.1 mmol/L (3.3-5.1); Sodium 139 mmol/L (135-145)
== END 2022-10-24 19:03 | disposition home or self-care (01) ==
PROVIDERS: Physician Assistant Medical; Emergency Provider Emergency Medicine Emergency Medical Services; PCP Internal Medicine
DX: M17.12 Unilateral primary osteoarthritis, left knee (principal); N39.0 Urinary tract infection, site not specified; M25.562 Pain in left knee; E11.9 Type 2 diabetes mellitus without complications; I10 Essential (primary) hypertension; E78.5 Hyperlipidemia, unspecified; Z79.4 Long term (current) use of insulin; Z79.02 Long term (current) use of antithrombotics/antiplatelets; Z79.899 Other long term (current) drug therapy
CPT/HCPCS: 36415; 73562; 80048; 81001; 85025; 87086; 99283

== ENCOUNTER 2022-11-06 09:51 | Outpatient (REF) | payer OTHER, SELFPAY ==
--- NOTE | ~2022-11-06 | MM_ITS ---
EXAMINATION: MM SCREENING DIGITAL BREAST TOMOSYNTHESIS, RIGHT CLINICAL INFORMATION: Screening. Asymptomatic. The patient was only able to complete a right breast mammogram and due to back pain did not want to continue study. The patient was rescheduled for her left breast mammogram for 11/09/2022 however her daughter said that her mother was not feeling well enough to come back for the left breast portion of the screening mammogram. The lifetime risk of breast cancer based on the Tyrer-Cuzick Model is 4.3%. COMPARISON: Mammography: 06/15/2019 and studies dating back to . TECHNIQUE: Digital breast tomosynthesis is performed in both the craniocaudal and mediolateral oblique views along with computer-aided detection (CAD). Synthesized 2D images are generated from the tomosynthesis. FINDINGS: The breasts are almost entirely fatty (ACR BI-RADS breast composition Category a). There is an increasing grouping of calcifications about the deep upper outer aspect of the right breast but which are seen to change configuration between craniocaudal and mediolateral oblique projections with the appearance of [id number] in microcysts. No new abnormal dominant mass is identified. MM/MM tomosynthesis screening RT IMPRESSION: Increasing grouping of calcifications upper outer aspect of the right breast with the appearance of benign calcification within microcysts. Incomplete examination with left mammography not performed. ASSESSMENT: BI-RADS 0: Incomplete - Need Additional Imaging Evaluation RECOMMENDATION: Left breast mammography This patient's information was entered into a reminder system with a target due date for their next mammogram.
== END 2022-11-06 09:52 | disposition home or self-care (01) ==
LOC: HO.MAMMO 09:51
PROVIDERS: PCP Internal Medicine; Visit Provider Internal Medicine
DX: Z12.31 Encounter for screening mammogram for malignant neoplasm of breast (principal)
CPT/HCPCS: 77063; 77067

== ENCOUNTER 2022-11-09 13:04 | Outpatient (REF) | payer OTHER, SELFPAY | END 2022-11-09 13:05 | disposition home or self-care (01) | LOC: HO.LNP 13:04 | PROVIDERS: PCP Internal Medicine; Visit Provider Nurse Practitioner Family | DX: R32 Unspecified urinary incontinence (principal); R39.15 Urgency of urination; N39.0 Urinary tract infection, site not specified; R80.9 Proteinuria, unspecified; R35.0 Frequency of micturition | CPT/HCPCS: 51798; 87086; 87088; 87186; 99212 ==

== ENCOUNTER 2022-11-18 07:44 | Emergency (ER) | payer OTHER, SELFPAY ==
[2022-11-18 07:50] VITALS: BP 184/90; BP 189/74; PULSE 73; PULSE 74; RESP 16; O2SAT 94; O2SAT 97
[2022-11-18 07:54] VITALS: BP 164/85; PULSE 71; RESP 19; TEMP 36.3; O2SAT 97; BMI 47.5
--- NOTE | 2022-11-18 08:12 | ED_ITS ---
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 She states for the last 3 days she has not been able to sleep. She has not thought about hurting herself but she is desperate to sleep and wants to pull my hair out. She has taken trazodone with no improvement. She also reports chronic left knee pain, worse the last 2 weeks. Was seen here on 10/24 for the same, x-rays osteoarthritis. She denies any injury or trauma. She has been taking percocet for the pain with only brief improvement. She denies any redness, swelling, or warmth to the knee. She has never seen ort hopedics. MD complaint: anxiety and other (left knee pain) Onset (ago): day(s) Symptoms: sense of impending doom Severity: moderate Quality: worsening Place: home History of similar episodes: Yes Provoking factors: emotional stress Relieving factors: nothing Exacerbating factors: other (trying to sleep) Associated symptoms: denies other symptoms Related Data Home Medications Medication Instructions Recorded Confirmed calcium carbonate 500 mg calcium 1 tab PO BID 07/22/20 11/09/22 (1,250 mg) tablet (Oyster Shell Calcium 500) fluoxetine 40 mg capsule 1 cap PO QAM 07/22/20 11/09/22 fluticasone propionate 220 1 puff PO BID 07/22/20 11/09/22 mcg/actuation HFA aerosol inhaler (Flovent HFA) glipizide 5 mg tablet, extended 1 tab PO QAM 07/22/20 11/09/22 release 24 hr hydroxyzine HCl 50 mg tablet 1 tab PO BID 07/22/20 11/09/22 insulin glargine 100 unit/mL 65 unit subcut QAM 07/22/20 11/09/22 subcutaneous solution (Lantus U-100 Insulin) trazodone 100 mg tablet 1 tab PO BEDTIME 07/22/20 11/09/22 amlodipine 10 mg tablet 10 mg PO DAILY 04/07/21 11/09/22 aspirin 81 mg tablet,delayed 81 mg PO BEDTIME 04/07/21 11/09/22 release atorvastatin 80 mg tablet 80 mg PO BEDTIME 04/07/21 11/09/22 metformin 1,000 mg tablet 1,000 mg PO BID 04/07/21 11/09/22 metoprolol succinate 50 mg 50 mg PO QAM 04/07/21 11/09/22 tablet,extended release 24 hr dulaglutide 0.75 mg/0.5 mL mg subcut QWEEK 11/09/22 11/09/22 subcutaneous pen injector (Trulicity) trazodone 150 mg tablet 150 mg PO BEDTIME 11/09/22 11/09/22 Previous Rx's Medication Instructions Recorded fenofibrate micronized 134 mg 134 mg PO QAM 90 days #90 caps 12/29/21 capsule nitrofurantoin macrocrystal 100 mg 100 mg PO BID 14 days #28 caps 11/09/22 capsule hydroxyzine HCl 50 mg tablet 50 mg PO BEDTIME PRN anxiety #14 11/18/22 tabs ketorolac 10 mg tablet 10 mg PO TID PRN pain 5 days #15 11/18/22 tabs Allergies Allergy/AdvReac Type Severity Reaction Status Date / Time codeine [CODEINE] Allergy Unknown HALLUCINATI Verified 11/18/22 08:16 ONS Review of Systems Review of Systems: Yes all other systems are reviewed and are negative PMFSH Past Medical History Medical History Abuse of non-prescription analgesics Arthritis Asthma Atherosclerotic cardiovascular disease Diabetes mellitus Essential hypertension Fibromyalgia Hypertension Osteoporosis Other and unspecified hyperlipidemia Type 2 diabetes mellitus with unspecified complications Urgency incontinence Surgical History History of hernia repair Social History Social History Alcohol intake: never Patient Tobacco Use Status: Never used Tobacco Smoked in Last 30 Days: No Use of substances other than those prescribed or required for medical reasons: No Advance Directives: No Advance Directives Information Provided: Yes Physical Exam Vital Signs: Vital Signs: Last Vital Signs Temp 97.4 F 11/18/22 07:54 Pulse 71 11/18/22 07:54 Resp 19 11/18/22 07:54 BP 164/85 H 11/18/22 07:54 Pulse Ox 97 11/18/22 07:54 O2 Del Method Room Air 11/18/22 07:54 BMI result Body Mass Index 47.5 Appearance: Alert. Oriented X3. No acute distress. Head: normocephalic, atraumatic. Eyes: Pupils equal, round and reactive to light. ENT: Pharynx normal. No tonsillar swelling or exudate. Neck: Normal inspection. Neck supple. CVS: Normal heart rate and rhythm. Pulses normal. Respiratory: No respiratory distress. Breath sounds normal. Abdomen: Obese, Soft and nontender. +BS x4 Skin: Skin warm and dry. Normal skin color. Normal skin turgor. No rashes. Extremities: No lower extremity edema. No joint swelling. Left knee is normal to inspection, no erythema or warmth. tenderness along both the medial and lateral joint lines. normal ROM. no joint laxiety apprecaited. Neuro/psych: Oriented X 3. No motor deficit. No sensory deficit. CN II-XII intact. Normal speech and cognition. Medical Decision Making Medical Decision Making MDM Narrative: 72 yo female presenting with anxiety attacks related to insomnia x3 days along with chronic left knee pain. She is not suicidal or homicidal. Mood is appropriate. She is on trazodone. She is managed by her PCP and has no psychiatrist. She has not tried melatonin, which was encouarged. We also discussed starting PRN hydroxyzine at night which may help with both anxiety and sleep. Will give a short course and have her follow up as an outpatient. Her knee pain is chronic and she needs to see orthopedics for further evaluation. No evidence of infection. She is already on opiates. Will start NSAID. Will have her follow up with ortho. Stable for d/c home. Differential Diagnosis Differential Diagnoses: The differential diagnosis associated with the presentation includes anxiety, panic attacks, insomnia, mood disorder, acute psychosis osteoarthritis, knee effusion, ligamentous injury, inflammatory disorder Radiology Impression Discussion of test interpretation with radiology: I have reviewed the radiologist's reading. Radiologist Impression: EXAMINATION: 10/24/22 XR KNEE, LEFT CLINICAL INFORMATION: Left knee pain.? COMPARISON: None available.? TECHNIQUE: Four views of the left knee. FINDINGS: Mild segmental degenerative joint changes are seen. There is no acute fracture or dislocation. Possible trace suprapatellar joint effusion. Mild surrounding soft tissue swelling.? XR/XR knee LT 3V IMPRESSION: 1.? Mild degenerative joint changes suggesting osteoarthritis. 2.? Possible trace suprapatellar joint effusion and mild surrounding soft tissue swelling. No acute fracture. Independent Historian Clinical information obtained from an independent historian. History obtained from or confirmed by: EMS External Record Review External record reviewed: Outpatient record, Prior outpatient labs and Prior outpatient radiology Prescription Management I considered prescription management with: Other (anxiolytic, NSAID) Chronic Conditions Patient?s care impacted by: Diabetes, Hypertension and Other (morbid obesity ) Critical Care Time Critical Care Time Critical Care Time: No Discharge Plan Discharge Clinical Impression: Acute anxiety, Insomnia, Osteoarthritis of left knee Patient Disposition: Home, Self-Care Instructions: Osteoarthritis (DC), Insomnia (ED), Anxiety (ED) Additional Instructions: Take the prescribed medications as prescribed to help with your knee pain and your anxiety/sleep issues. Follow up with your PCP. Follow up with Orthopedics as well as Behavioral Health for further evaluation and treatment. If you develop new or worsening symptoms call 911 or come back to the ER for further evaluation. [place] los medicamentos recetados seg?n lo prescrito para ayudar con berg dolor de rodilla y kerry problemas de ansiedad/rickie?o. Smita un seguimiento con berg PCP. Smita un seguimiento con ortopedia y nisha conductual para gulshan evaluaci?n y tratamiento adicionales. Si desarrolla s?ntomas nuevos o que empeoran, llame al 911 o regrese a la isa de emergencias para gulshan evaluaci?n adicional. Prescriptions: New ketorolac 10 mg tablet 10 mg PO TID PRN (Reason: pain) 5 Days Qty: 15 0RF hydroxyzine HCl 50 mg tablet 50 mg PO BEDTIME PRN (Reason: anxiety) Qty: 14 0RF No Action fenofibrate micronized 134 mg capsule 134 mg PO QAM 90 Days Qty: 90 3RF fluoxetine 40 mg capsule 1 cap PO QAM Lantus U-100 Insulin 100 unit/mL solution 65 unit subcut QAM glipizide 5 mg tablet extended release 24hr 1 tab PO QAM hydroxyzine HCl 50 mg tablet 1 tab PO BID calcium carbonate [Oyster Shell Calcium 500] 500 mg calcium (1,250 mg) tablet 1 tab PO BID trazodone 100 mg tablet 1 tab PO BEDTIME Flovent HFA 220 mcg/actuation HFA aerosol inhaler 1 puff PO BID atorvastatin 80 mg tablet 80 mg PO BEDTIME aspirin 81 mg tablet,delayed release (DR/EC) 81 mg PO BEDTIME metoprolol succinate 50 mg tablet extended release 24 hr 50 mg PO QAM metformin 1,000 mg tablet 1,000 mg PO BID amlodipine 10 mg tablet 10 mg PO DAILY Trulicity 0.75 mg/0.5 mL pen injector subcut QWEEK trazodone 150 mg tablet 150 mg PO BEDTIME nitrofurantoin macrocrystal 100 mg capsule 100 mg PO BID 14 Days Qty: 28 0RF Rx Instructions: must administer with a meal/food Referrals: [facility] [place] [facility] [place] [facility] [Provider Group] (anxiety) [facility] [place] [place] [facility] [Provider Group] (OA left knee) Amanda Watkins MD [Primary Care Provider] - (chronic knee pain, anxiety, insomnia) Print Language: Frisian
[2022-11-18] MEDS: Ketorolac Tromethamine 30 MG/ML VIAL IM (08:48)
== END 2022-11-18 09:28 | disposition home or self-care (01) ==
PROVIDERS: Emergency Provider Emergency Medicine; PCP Internal Medicine
DX: M17.12 Unilateral primary osteoarthritis, left knee (principal); G89.29 Other chronic pain; I25.10 Atherosclerotic heart disease of native coronary artery without angina pectoris; I10 Essential (primary) hypertension; E11.8 Type 2 diabetes mellitus with unspecified complications; G47.00 Insomnia, unspecified; F41.9 Anxiety disorder, unspecified
CPT/HCPCS: 96372; 99284; J1885

== ENCOUNTER 2022-12-30 13:01 | Outpatient (REF) | payer OTHER, SELFPAY ==
--- NOTE | ~2022-12-30 | US_ITS ---
EXAMINATION: US RETROPERITONEAL LIMITED (RENAL ONLY) CLINICAL INFORMATION: UTI. COMPARISON: Ultrasound renals only 10/01/2019. CT abdomen pelvis 08/15/2017. TECHNIQUE: Real-time imaging of the kidneys. Exam is limited due to body habitus. FINDINGS: RIGHT KIDNEY: 13.0 x 4.4 x 6.4 cm (SAG x AP x TRV). The kidney is normal in size, contour, and echogenicity. Question renal cortical thinning. 2 cysts measuring 5.1 x 3.7 x 3.8 cm in the lateral lower pole and 1.4 x 1 x 1.3 cm with a single thin septation in the lower pole no imaging follow-up recommended. No renal calculi or hydronephrosis. LEFT KIDNEY: 12.8 x 5.4 x 5.0 cm (SAG x AP x TRV). The kidney is normal in size, contour, and echogenicity. Question renal cortical thinning. 1.8 x 2.1 x 2.3 cm cyst in the midpole. No imaging follow-up recommended. No renal calculi or hydronephrosis. US/US retroperitoneal limited IMPRESSION: Limited exam. Question renal cortical thinning. No hydronephrosis. Bilateral renal cysts. No imaging follow-up recommended.
== END 2022-12-30 13:02 | disposition home or self-care (01) ==
LOC: HO.US 13:01
PROVIDERS: PCP Internal Medicine; Visit Provider Nurse Practitioner Family
DX: N39.0 Urinary tract infection, site not specified (principal); R32 Unspecified urinary incontinence
CPT/HCPCS: 76775

== ENCOUNTER 2023-04-26 13:04 | Outpatient (AMB) | payer OTHER, SELFPAY ==
[2023-04-26 13:11] VITALS: BP 108/80; BMI 44.8
--- NOTE | 2023-04-26 13:11 | A.OFFVIS_ITS ---
Intake Vital Signs 04/26/23 13:11 Height 5 ft 2 in Weight 244 lb 11.41 oz BMI 44.8 BP 108/80 Blood Pressure Location Lt brachial Position Sitting Intake Visit Reasons: overdue follow up/SOB/ Intake Note: overdue follow up Geographic Information Scientist Required: Yes Geographic Information Scientist Language: Trust Vault Clerk Name: [id number] Gonzales Accompanied by: Daughter Allergies codeine [CODEINE] Allergy (Unknown, Verified 04/26/23 13:14) HALLUCINATIONS Medication List - Last Reconciled 04/26/23 by Glenn Adames MD amlodipine 10 mg PO DAILY aspirin 81 mg PO BEDTIME atorvastatin 80 mg PO BEDTIME calcium carbonate (Oyster Shell Calcium 500) 1 tab PO BID dulaglutide (Trulicity) mg subcut QWEEK fenofibrate micronized 134 mg PO QAM 90 days fluoxetine 1 cap PO QAM fluticasone propionate 220 mcg/actuation (Flovent HFA) 1 puff PO BID glipizide ER 1 tab PO QAM hydroxyzine HCl 1 tab PO BID hydroxyzine HCl 50 mg PO BEDTIME PRN insulin glargine (Lantus U-100 Insulin) 65 units subcut QAM ketorolac 10 mg PO TID PRN 5 days metformin 1,000 mg PO BID metoprolol succinate ER 50 mg PO QAM nitrofurantoin macrocrystal 100 mg PO BID 14 days trazodone 1 tab PO BEDTIME trazodone 150 mg PO BEDTIME HPI HPI Comments History of Present Illness Details Mary Lou returns for follow-up regarding coronary artery disease. She has multiple vascular risk factors including type 2 diabetes, hypertension, dyslipidemia as well as obesity. In 2014, she was having chest discomfort that led to cardiac catheterization. That revealed moderately severe disease in the 2nd obtuse marginal, but no intervention performed. Patient has been feeling short of breath and other nonspecific complaints. She has been apparently getting 'panic attacks'. However, heart rate is 125/min on the EKG today and she might be in flutter. Hence not clear the panic attacks rather true arrhythmia. [facility] Medical History Abuse of non-prescription analgesics Arthritis Asthma Atherosclerotic cardiovascular disease Diabetes mellitus Essential hypertension Fibromyalgia Hypertension Osteoporosis Other and unspecified hyperlipidemia Type 2 diabetes mellitus with unspecified complications Urgency incontinence Surgical History History of hernia repair Social History Alcohol intake: never Patient Tobacco Use Status: Never used Tobacco Review of Systems Const Denies weakness ENT Denies dizziness Card Denies chest pain, Denies chest pain with activity, Denies syncope, Denies rapid heart rate, Denies pedal edema, Denies edema, Denies leg edema, Denies lightheadedness, Denies palpitations, Denies dyspnea, Denies dyspnea on exertion and Denies orthopnea Resp Denies cough, Denies dyspnea and Denies dyspnea on exertion GI Denies hematochezia and Denies change in stool character Musc Denies abnormal gait, Denies muscle cramps, Denies muscle weakness, Denies numbness, Denies radiating pain into limb and Denies tingling Neuro Denies abnormal gait, Denies dizziness, Denies syncope, Denies numbness, Denies tingling and Denies weakness Endo Denies palpitations Physical Exam Vital Signs: Last Vital Signs BP 108/80 04/26/23 13:11 BMI result Body Mass Index 44.8 Const General: comfortable and no acute distress Orientation/consciousness: patient oriented x3 HEENT Other: Unremarkable Head: Yes normal to inspection Neck Neck: Yes normal visual inspection Chest Chest palpation & inspection: normal inspection of the chest Resp Auscultation: clear to auscultation bilaterally Cardio Palpation: normal PMI Heart sounds: S1 normal heart sound present, S2 normal heart sound present, no gallops, no murmurs and no rubs GI Palpation (GI): Soft to palpation Back/Spine/Pelvis Other: unremarkable Skin General skin exam: no rashes or lesions noted Neuro General: patient oriented x3 Extrem General: Yes normal to inspection Psych Mental Status: mental status grossly normal Office Procedures EKG Details: EKG today with probable atrial flutter or atrial tachycardia with ventricular rate of 125/Min. [id number], Complete Assessment & Plan Assessment & Plan (1) Atrial arrhythmia: Code(s): I49.8 - Other specified cardiac arrhythmias (2) Atherosclerotic cardiovascular disease: Code(s): I25.10 - Atherosclerotic heart disease of [place] coronary artery without angina pectoris (3) Essential hypertension: Code(s): I10 - Essential (primary) hypertension (4) Other and unspecified hyperlipidemia: Code(s): E78.5 - Hyperlipidemia, unspecified (5) Type 2 diabetes mellitus with unspecified complications: Code(s): E11.8 - Type 2 diabetes mellitus with unspecified complications Plan By EKG, she is either in atrial flutter or atrial tachycardia. Ventricular rate is 125/Min. We will increase the beta-benoit dosing from metoprolol 50 mg once a day to twice a day. Get a Holter monitor. Will need to decide anticoagulation once that is reviewed. Would like to clearly see the flutter waves. With regard to coronary disease, no overt symptoms. Aggressive risk factor modification. Aspirin and high-dose statins. Her weight is very much in the obesity range and unlikely to change. Has been this way for a long time. She has numerous risk factors including diabetes, high blood pressure, dyslipidemia and hence overall remains at high risk for recurrent cardiovascular events. Patient as well as family well aware of this. Discussed with daughter who came for appointment. Orders: Orders ECG 3 day holter monitor Today R00.2 - Palpitations Medications: New metoprolol tartrate 50 mg PO BID 90 days 180 tabs 3RF Coding Level of Care Code Est Pt Level 4 (88881) Diagnoses Atrial arrhythmia I49.8 Atherosclerotic cardiovascular disease I25.10 Essential hypertension I10 Other and unspecified hyperlipidemia E78.5 Type 2 diabetes mellitus with unspecified complications E11.8 CPT Codes EKG - CPT: 01718-[id number], Complete ([id number])
== END 2023-04-26 13:47 | disposition home or self-care (01) ==
PROVIDERS: PCP Internal Medicine; Visit Provider Internal Medicine
DX: I49.8 Other specified cardiac arrhythmias (principal); I25.10 Atherosclerotic heart disease of native coronary artery without angina pectoris; I10 Essential (primary) hypertension; E78.5 Hyperlipidemia, unspecified; E11.8 Type 2 diabetes mellitus with unspecified complications
CPT/HCPCS: 93010; 99214

== ENCOUNTER → 2023-04-26 13:04 | Outpatient (BNVA) | payer OTHER, SELFPAY | PROVIDERS: PCP Internal Medicine; Visit Provider Internal Medicine | DX: I25.10 Atherosclerotic heart disease of native coronary artery without angina pectoris (principal); I49.8 Other specified cardiac arrhythmias; I10 Essential (primary) hypertension; E78.5 Hyperlipidemia, unspecified; E11.8 Type 2 diabetes mellitus with unspecified complications | CPT/HCPCS: 93005; 99212 ==

== ENCOUNTER → 2023-04-30 11:17 | Outpatient (REF) | payer OTHER, SELFPAY ==
--- NOTE | 2023-04-30 11:20 | HM_ITS ---
* Total monitoring time 3 days. * Underlying rhythm is atrial flutter/fibrillation. There is some evidence of both different strips. Also there is lot of artifact. * Average ventricular rate is 105/Min. Range 64 to 128/Min. About 58% of the time, rate greater than 100/Min. * No significant pauses or heart block. * Chest discomfort/stinging in chest correlates with atrial flutter/fibrillation with rapid rate. MTDD
== END ==
LOC: HO.CARD 11:17
PROVIDERS: PCP Internal Medicine; Visit Provider Internal Medicine
DX: R00.2 Palpitations (principal)
CPT/HCPCS: 93242

== ENCOUNTER → 2023-04-30 11:20 | Outpatient (BNV) | payer OTHER, SELFPAY | PROVIDERS: PCP Internal Medicine; Visit Provider Internal Medicine | DX: I48.92 Unspecified atrial flutter (principal) | CPT/HCPCS: 93244 ==

== ENCOUNTER 2023-05-06 14:56 | Outpatient (REF) | payer OTHER, SELFPAY ==
[2023-05-06 16:17] LABS: Anion Gap 14 (12-20); Blood Urea Nitrogen 19 mg/dL (9-16); Calcium 8.9 mg/dL (8.4-10.2); Carbon Dioxide 27 mmol/L (22-29); Chloride 105 mmol/L (96-108); Estimated Glomerular Filt Rate 47; Glucose Random 138 mg/dL (60-115); Potassium 4.6 mmol/L (3.3-5.1); Sodium 141 mmol/L (135-145)
== END 2023-05-06 14:57 | disposition home or self-care (01) ==
LOC: HO.LAB 14:56
PROVIDERS: Visit Provider Internal Medicine Hypertension Specialist
DX: E11.22 Type 2 diabetes mellitus with diabetic chronic kidney disease (principal); N18.9 Chronic kidney disease, unspecified
CPT/HCPCS: 36415; 80048

== ENCOUNTER 2023-05-11 14:00 | Outpatient (REF) | payer OTHER, SELFPAY ==
[2023-05-11 14:16] LABS: Appearance Urine Cloudy; Color Urine Yellow; Glucose Urine UA 100 mg/dL (Negative); Leukocyte Esterase Urine Small (1+) (Negative); Nitrite Urine Negative (Negative); Specific Gravity - Urine 1.015 (1.005-1.025); UMIC TRIGGER UA YES; Urine Blood Trace (Negative); Urine Ketones Negative (Negative); Urine Protein 300 (3+) mg/dL (Neg-Trace)
[2023-05-11 14:19] LABS: Bacteria Urine 4+ (None Seen); Hyaline Casts Urine 0-2 /LPF (0-2); RBC Urine 0-2 /HPF (0-2); WBC Urine >50 /HPF (0-5)
[2023-05-11 15:31] LABS: Creatinine Urine 90.24 mg/dL; Protein/Creatinine Ratio, Ur 1.82 (<0.2); Total Protein Urine Random 164 mg/dL (<12)
== END 2023-05-11 14:01 | disposition home or self-care (01) ==
LOC: HO.LNP 14:00
PROVIDERS: Visit Provider Internal Medicine Hypertension Specialist
DX: E11.22 Type 2 diabetes mellitus with diabetic chronic kidney disease (principal); N18.9 Chronic kidney disease, unspecified
CPT/HCPCS: 81001; 82570; 84156

== ENCOUNTER 2023-05-31 13:56 | Outpatient (AMB) | payer OTHER, SELFPAY ==
[2023-05-31 14:19] VITALS: BP 114/72; PULSE 118; BMI 44.8
--- NOTE | 2023-05-31 14:19 | A.OFFVIS_ITS ---
Intake Vital Signs 05/31/23 14:19 Height 5 ft 2 in Weight 244 lb 11.41 oz BMI 44.8 BP 114/72 Blood Pressure Location Lt brachial Position Sitting Pulse 118 H Intake Visit Reasons: follow up after holter Intake Note: f/u after holter Fire Equipment Inspector Helper Required: Yes Fire Equipment Inspector Helper Language: Foam Rubber Fabricator Name: sammy mclean [id number] Cash Checker: Cash Checker Present Accompanied by: Son Allergies codeine [CODEINE] Allergy (Unknown, Verified 05/31/23 14:23) HALLUCINATIONS Medication List - Last Reconciled 05/31/23 by Faviola Stovall, SOFTWARE WRITER-C amlodipine 10 mg PO DAILY apixaban (Eliquis) 5 mg PO BID atorvastatin 80 mg PO BEDTIME calcium carbonate (Oyster Shell Calcium 500) 1 tab PO BID dulaglutide (Trulicity) mg subcut QWEEK fenofibrate micronized 134 mg PO QAM 90 days fluoxetine 1 cap PO QAM fluticasone propionate 220 mcg/actuation (Flovent HFA) 1 puff PO BID glipizide ER 1 tab PO QAM hydroxyzine HCl 1 tab PO BID hydroxyzine HCl 50 mg PO BEDTIME PRN insulin glargine (Lantus U-100 Insulin) 65 units subcut QAM metformin 1,000 mg PO BID metoprolol tartrate 75 mg (1.5 x 50 mg) PO BID 90 days nitrofurantoin macrocrystal 100 mg PO BID 14 days trazodone 1 tab PO BEDTIME trazodone 150 mg PO BEDTIME HPI follow up after holter HPI Details Mary Lou is a 72-year-old female past medical history obesity, hypertension, hyperlipidemia, diabetes, CAD, newer finding of atrial flutter who presents after recent Holter monitor. Today she reports that she is having increasing shortness of breath. She descri bes orthopnea and has leg edema. No coughing, chest discomfort, presyncope, syncope, falls. She does have heart palpitations at times especially with activity. Taking meds as directed. No bleeding issues reported with anticoagulation. Mostly sedentary. Son is present. 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 [facility] Medical History Abuse of non-prescription analgesics Type 2 diabetes mellitus with unspecified complications Other and unspecified hyperlipidemia Essential hypertension Atherosclerotic cardiovascular disease Urgency incontinence Osteoporosis Arthritis Asthma Hypertension Fibromyalgia Diabetes mellitus Surgical History History of hernia repair Social History Alcohol intake: never Patient Tobacco Use Status: Never used Tobacco Review of Systems Const All systems reviewed & are unremarkable except as noted in HPI and below ENT Denies dizziness Card Denies chest pain, Denies chest pain at rest, Denies chest pain with activity, Denies rapid heart rate, Denies pedal edema, Denies edema, Denies leg edema, Denies lightheadedness, Reports palpitations, Reports dyspnea, Reports dyspnea on exertion and Reports orthopnea Resp Denies cough, Reports dyspnea and Reports dyspnea on exertion GI Denies hematochezia and Denies change in stool character Musc Reports abnormal gait, Denies limited range of motion, Denies muscle cramps, Denies muscle weakness, Denies numbness, Denies radiating pain into limb, Denies stiffness and Denies tingling Neuro Reports abnormal gait, Denies dizziness, Denies numbness and Denies tingling Endo Reports palpitations Physical Exam Vital Signs: Last Vital Signs Pulse 118 H 05/31/23 14:19 BP 114/72 05/31/23 14:19 BMI result Body Mass Index 44.8 Const General: cooperative and no acute distress Orientation/consciousness: patient oriented x3 Neck Neck: Yes normal visual inspection Resp Effort & Inspection: normal respiratory effort Auscultation: clear to auscultation bilaterally, no rales, no rhonchi and no wheezes Cardio Jugular venous distension: no JVD Rate: regular rate Rhythm: regular rhythm Heart sounds: S1 normal heart sound present, S2 normal heart sound present, no murmurs and no rubs Neuro General: patient oriented x3 Extrem Other: pitting edema, to level of posterior thighs Psych Appearance: grossly normal Mental Status: mental status grossly normal Speech and movement: Normal speech and movement present Office Procedures EKG Details: Today read by me, atrial flutter with 2-1 conduction, anterior Q-wave, rate 118, QTC 426 milliseconds [id number], Complete Assessment & Plan Assessment & Plan (1) Shortness of breath: Code(s): R06.02 - Shortness of breath Plan: Report of increasing shortness of breath especially with activity. Describes orthopnea and sleeping in an inclined position. Has leg edema, pitting up to her posterior thighs. Difficult to assess for JVD due to morbid obesity. She appears to have fluid overload at present. Will have her check labs today including BMP and BNP. Plan to start on diuretic therapy once lab results have been reviewed. Echocardiogram ordered. (2) Atrial flutter: Code(s): I48.92 - Unspecified atrial flutter Qualifiers: Atrial flutter type: typical Qualified Code(s): I48.3 - Typical atrial flutter Plan: Newer finding of atrial flutter. She had metoprolol in dose increased last visit. Holter monitor done 04/30/2023 for 3 days showing atrial fib/flutter, average rate 105, rate range 64 to 128, 58% of the time heart rate greater than 100. At that time her metoprolol dose was further increased to 75 mg b.i.d.. She was started on Eliquis 5 mg b.i.d. for anticoagulation 05/06/23. Labs done 05/06/2023 showed creatinine 1.14. EKG done today showing atrial flutter, rate 118. Will increase metoprolol up to 100 mg b.i.d. current EF is not known so will avoid use of diltiazem at present. If blood pressure becomes too low then will need to change to diltiazem. Will check with her primary phone operator regarding cardioversion. Reviewed procedure with her and she is agreeable to proceed. (3) Leg edema: Code(s): R60.0 - Localized edema (4) Coronary artery disease: Code(s): I25.10 - Atherosclerotic heart disease of [place] coronary artery without angina pectoris Plan: Reported history of CAD. Currently no reports of anginal sounding symptoms. She does have shortness of breath which is most likely related to her a flutter and fluid retention. She is not on aspirin as she is on Eliquis. She is on high-dose atorvastatin with ideal LDL goal less than 70. She is on metoprolol. Signs and symptoms of angina reviewed. (5) Essential hypertension: Code(s): I10 - Essential (primary) hypertension Plan: Controlled at present Orders: Orders Basic Metabolic Panel Today R06.02 - Shortness of breath B Type Natriuretic Peptide Today R06.02 - Shortness of breath CA echo transthoracic complete Today I48.92 - Unspecified atrial flutter, R06.02 - Shortness of breath Medications: New metoprolol tartrate 100 mg PO BID 90 days 180 tabs 1RF Discontinued metoprolol tartrate New Dx of Afib. Dose increased from 50mg bid to 75mg bid. Discontinued Reason: Doctor's Order 75 mg (1.5 x 50 mg) PO BID 90 days 270 tabs 3RF Coding Level of Care Code Est Pt Level 4 (07907) Diagnoses Shortness of breath R06.02 Typical atrial flutter I48.3 Atrial flutter type: typical Leg edema R60.0 Coronary artery disease I25.10 Essential hypertension I10 CPT Codes EKG - CPT: 27933-[id number], Complete ([id number]) Time Spent (min) 28
== END 2023-05-31 14:56 | disposition home or self-care (01) ==
PROVIDERS: PCP Internal Medicine; Visit Provider Nurse Practitioner Family
DX: R06.02 Shortness of breath (principal); I48.3 Typical atrial flutter; R60.0 Localized edema; I25.10 Atherosclerotic heart disease of native coronary artery without angina pectoris; I10 Essential (primary) hypertension
CPT/HCPCS: 93010; 99214

== ENCOUNTER 2023-05-31 13:56 | Outpatient (REF) | payer OTHER, SELFPAY ==
[2023-05-31 16:11] LABS: Anion Gap 13 (12-20); Blood Urea Nitrogen 25 mg/dL (9-16); Calcium 9.4 mg/dL (8.4-10.2); Carbon Dioxide 29 mmol/L (22-29); Chloride 106 mmol/L (96-108); Estimated Glomerular Filt Rate 38; Glucose Random 143 mg/dL (60-115); Potassium 5.2 mmol/L (3.3-5.1); Sodium 143 mmol/L (135-145)
[2023-05-31 16:19] LABS: B Type Natriuretic Peptide 213 pg/mL (<100)
== END 2023-05-31 13:57 | disposition home or self-care (01) ==
LOC: HO.LAB 13:56
PROVIDERS: PCP Internal Medicine; Visit Provider Nurse Practitioner Family
DX: R06.02 Shortness of breath (principal); I48.3 Typical atrial flutter; R60.0 Localized edema; I25.10 Atherosclerotic heart disease of native coronary artery without angina pectoris; I10 Essential (primary) hypertension
CPT/HCPCS: 36415; 80048; 83880; 93005; 99212

== ENCOUNTER 2023-06-03 09:46 | Outpatient (REF) | payer OTHER, SELFPAY ==
--- NOTE | ~2023-06-03 | US_ITS ---
EXAMINATION: US LOWER EXTREMITY VENOUS (REFLUX EXAM), BILATERAL CLINICAL INDICATION: Leg edema, concern for vascular insufficiency COMPARISON: None. TECHNIQUE: Color flow triplex imaging and compression Doppler was performed to evaluate both the deep and the superficial systems bilaterally. To evaluate the superficial system, the examination was performed in the upright position. Color-flow Doppler ultrasound and compression ultrasound were utilized. In addition, maneuvers were utilized to demonstrate reflux. FINDINGS: RIGHT: 1. DEEP VENOUS ULTRASOUND OF THE RIGHT LOWER EXTREMITY: Common Femoral Vein: Compressible, normal respiratory variation and augmented flow. Popliteal Vein: Compressible, normal augmentation. Deep Venous Reflux: There is no evidence of reflux in the deep system in either the common femoral vein or the popliteal vein. Small Reed's cyst measures 2.8 x 0.5 x 2.2 cm. 2. SUPERFICIAL ULTRASOUND WITH DOPPLER OF RIGHT LOWER EXTREMITY: RIGHT GREAT SAPHENOUS VEIN: Saphenofemoral Junction: 5 mm. No reflux. Proximal Thigh: 4 mm. No reflux. Mid Thigh: 3 mm. No reflux. Above Knee: 2 mm. No reflux. Below Knee: 2 mm. No reflux. Mid Calf: 2 mm. No reflux. Ankle: 2 mm. No reflux. DUPLICATED GREAT SAPHENOUS VEIN: None RIGHT SMALL SAPHENOUS VEIN: Proximal: 3 mm. No reflux. Distal: 2 mm. No reflux. PERFORATORS: Mid thigh measuring 2 mm. No reflux. Varicose vein at the mid calf measuring 4 mm with no reflux. LEFT: 1. DEEP VENOUS ULTRASOUND OF THE LEFT LOWER EXTREMITY: Common Femoral Vein: Compressible, normal respiratory variation and augmented flow. Popliteal Vein: Compressible, normal augmentation. Deep Venous Reflux: There is no evidence of reflux in the deep system in either the common femoral vein or the popliteal vein. There is no evidence of a Reed's cyst. 2. SUPERFICIAL ULTRASOUND WITH DOPPLER OF LEFT LOWER EXTREMITY: LEFT GREAT SAPHENOUS VEIN: Saphenofemoral Junction: 7 mm. No reflux. Proximal Thigh: 6 mm. No reflux. Mid Thigh: 3 mm. 2428 milliseconds reflux. Above Knee: 3 mm. 2268 milliseconds reflux. Below Knee: Not seen Mid Calf: 3 mm. No reflux. Ankle: 3 mm. No reflux. DUPLICATED GREAT SAPHENOUS VEIN: None LEFT SMALL SAPHENOUS VEIN: Proximal: 1 mm. No reflux. Distal: 2 mm. No reflux. PERFORATORS: None. Varicose vein at the level of the knee measuring 6 mm and reflux of 2840 ms US/US venous duplex LE BI IMPRESSION: 1. Left great saphenous venous reflux at the level of the left thigh. 2. Left knee vernicose vein with prolonged reflux. 3. Small right popliteal Reed's cyst measures 2.8 cm. Abnormal lower extremity venous reflux times: Superficial and deep calf veins: >500 ms Femoropopliteal veins: >1000 ms Perforating veins: >350 ms Will N, Alisa J, Ian L, Jannie AK, Tristan SS, Johanna Flynn M, Brianna WH. Definition of venous reflux in lower-extremity veins.J Vasc Surg. 2003; [phone].
== END 2023-06-03 09:47 | disposition home or self-care (01) ==
LOC: HO.US 09:46
PROVIDERS: Visit Provider Registered Nurse
DX: R60.0 Localized edema (principal)
CPT/HCPCS: 93970

== ENCOUNTER 2023-06-11 12:34 | Day surgery (SDC) | payer OTHER, SELFPAY ==
[2023-06-09 15:00] VITALS: BMI 44.8
--- NOTE | 2023-06-11 | ECG_ITS ---
Test Reason : s/p cardioversion Blood Pressure : / mmHG Vent. Rate : 054 BPM Atrial Rate : 054 BPM P-R Int : 184 ms QRS Dur : 090 ms QT Int : 432 ms P-R-T Axes : 034 -10 005 degrees QTc Int : 409 ms Sinus bradycardia with Premature atrial complexes Nonspecific T wave abnormality Abnormal ECG When compared with ECG of 11-JUN-2023 13:05, Premature atrial complexes are now Present Vent. rate has decreased BY 61 BPM Referred By: Asif Zhao Electronically Signed By:MARIBETH ECHEVERRIA MD
[2023-06-11 12:47] VITALS: BMI 44.6
--- NOTE | 2023-06-11 12:59 | ECG_ITS ---
Test Reason : rhythm changes Blood Pressure : / mmHG Vent. Rate : 115 BPM Atrial Rate : 115 BPM P-R Int : 184 ms QRS Dur : 078 ms QT Int : 316 ms P-R-T Axes : 064 -22 007 degrees QTc Int : 437 ms Sinus tachycardia Nonspecific ST abnormality short qt RSR' or QR pattern in V1 suggests right ventricular conduction delay Abnormal ECG When compared with ECG of 26-FEB-2022 16:31, Vent. rate has increased BY 53 BPM Referred By: Asif Zhao Electronically Signed By:MARIBETH ECHEVERRIA MD
[2023-06-11 13:20] VITALS: BP 116/77; PULSE 115; RESP 16; TEMP 36.3; O2SAT 99
[2023-06-11] MEDS: Lactated Ringers 1,000 ML 50 ML IVCONT (13:31)
--- NOTE | 2023-06-11 13:33 | HO.ANESPROP2 ---
[facility] Active Problems Active Problems: All Active Problems (Updated 05/31/23 @ 18:25 by Faviola Stovall, STAFF PSYCHIATRIST-C) Leg edema (Acute) Atrial flutter (Acute) Shortness of breath (Acute) Atrial arrhythmia (Acute) Protein in urine (Acute) Complicated urinary tract infection (Acute) Super obesity (Acute) Urinary incontinence (Acute) Varicose veins of both lower extremities (Acute) Opioid dependence (Acute) Depression with anxiety (Acute) Agoraphobia (Acute) Coronary artery disease (Acute) Cystocele with uterine prolapse (Acute) Type 2 diabetes mellitus with unspecified complications (Acute) Other and unspecified hyperlipidemia (Acute) Essential hypertension (Acute) Atherosclerotic cardiovascular disease (Acute) Urge incontinence (Acute) Urinary frequency (Acute) Urinary urgency (Acute) Past Medical History Medical History Abuse of non-prescription analgesics Type 2 diabetes mellitus with unspecified complications Other and unspecified hyperlipidemia Essential hypertension Atherosclerotic cardiovascular disease Urgency incontinence Osteoporosis Arthritis Asthma Hypertension Fibromyalgia Diabetes mellitus Family History Family history of problems with anesthesia: No Surgical History Surgical History History of hernia repair History of Problems with Anesthesia: No Social History Social History Alcohol intake: never Patient Tobacco Use Status: Never used Tobacco Use of substances other than those prescribed or required for medical reasons: No Are you DNR?: No Advance Directives: No Advance Directives Information Provided: Yes Meds Allergies Allergy/AdvReac Type Severity Reaction Status Date / Time codeine [CODEINE] Allergy Unknown HALLUCINATI Verified 06/11/23 13:05 ONS Active Medications: Current Medications Lactated Ringer's (Lr) 1,000 mls @ 50 mls/hr IVCONT .Q20H JULIANNE Last Admin: 06/11/23 13:31 Dose: 50 mls/hr Home Medications Medication Instructions Recorded Confirmed Last Taken Type calcium carbonate 500 mg calcium 1 tab PO BID 07/22/20 06/09/23 Unknown History (1,250 mg) tablet (Oyster Shell Calcium 500) fluoxetine 40 mg capsule 1 cap PO QAM 07/22/20 06/09/23 Unknown History fluticasone propionate 220 1 puff PO BID 07/22/20 06/09/23 Unknown History mcg/actuation HFA aerosol inhaler (Flovent HFA) glipizide 5 mg tablet, extended 1 tab PO QAM 07/22/20 06/09/23 Unknown History release 24 hr hydroxyzine HCl 50 mg tablet 1 tab PO BID 07/22/20 06/09/23 Unknown History insulin glargine 100 unit/mL 65 unit subcut QAM 07/22/20 06/09/23 Unknown History subcutaneous solution (Lantus U-100 Insulin) trazodone 100 mg tablet 1 tab PO BEDTIME 07/22/20 05/31/23 Unknown History amlodipine 10 mg tablet 10 mg PO DAILY 04/07/21 06/11/23 06/11/23 History atorvastatin 80 mg tablet 80 mg PO BEDTIME 04/07/21 06/09/23 Unknown History metformin 1,000 mg tablet 1,000 mg PO BID 04/07/21 06/09/23 Unknown History dulaglutide 0.75 mg/0.5 mL 0.75 mg subcut QWEEK 11/09/22 06/09/23 Unknown History subcutaneous pen injector (Trulicity) trazodone 150 mg tablet 150 mg PO BEDTIME 11/09/22 06/09/23 Unknown History Exam Exam Date and Time: June 11, 2023 1333 Height,Weight and Vital Signs: Height 5 ft 2 in Weight 110.677 kg Last Vital Signs Temp 97.4 F 06/11/23 13:20 Pulse 115 H 06/11/23 13:20 Resp 16 06/11/23 13:20 BP 116/77 06/11/23 13:20 Pulse Ox 99 06/11/23 13:20 O2 Del Method Room Air 06/11/23 13:20 Airway Mallampati Class: III ( ouple broken teeth, denies anything loose) TM Dist: >3cm Neck ROM: Full Heart: rrr Lungs: cta Assessment and Plan Assessment Anesthesia Assessment: Anesthesia Plan Discussed (pt at increased risk secindary to medication, accepting that risk to avoid intubation and receive MAC, daughter in agreement, discussed with tutor coordinator ) and Chart Reviewed Final Anesthetic Review Family History of Problems with Anesthesia: No History of Problems with Anesthesia: No NPO: Yes ASA Class: III Final Preanesthetic Review: No Changes in Pt Med Stat, Meds/Allgs Chart Reviewed and Consent Obtained/Reviewed Patient Risk: Intermediate Procedure Risk: Intermediate Anesthetic Plan Anesthetic Plan: MAC: Disposition: Standard PACU
[2023-06-11 13:34] LABS: Glucose, Whole Blood 85 mg/dL (60-115)
[2023-06-11 14:17] VITALS: BP 131/48; PULSE 54; RESP 16; TEMP 36.3; O2SAT 96
--- NOTE | 2023-06-11 14:20 | PC.NURSE ---
Dr. Zhao paged and notifed of EKG Results. Ok to proceed with prep for planned cardioversion.
--- NOTE | 2023-06-11 14:20 | HO.CARDIVERS ---
Cardioversion Procedure Note Cardioversion Date of Procedure: 06/11/23 Ordering Provider: Faviola Stovall NP Performing Provider: Asif Zhao Indication for Procedure: Atrial flutter, CHF Performed with Transesophageal Echo: No Consent: Verbal and Written consent was obtained from the patient before starting. The patient was made aware of the risk of stroke, failure and aspiration. Procedure: After consent obtained, defib pads were attached and the patient was sedated by the anesthesia team. Once adequate sedation achieved, single syncrhonized shock of 150 J was given. The patient converted to sinus rhythm. Complications: none Recommendations: c/w Apixaban. We will start the patient on amiodarone.
[2023-06-11 14:22] VITALS: BP 122/62; PULSE 54; RESP 18; O2SAT 97
[2023-06-11 14:27] VITALS: BP 127/71; PULSE 56; RESP 18; O2SAT 98
[2023-06-11 14:32] VITALS: BP 120/63; PULSE 57; RESP 18; TEMP 36.1; O2SAT 99
[2023-06-11 14:47] VITALS: BP 137/85; PULSE 59; RESP 18; TEMP 36.1; O2SAT 97
== END 2023-06-11 15:25 | disposition home or self-care (01) ==
PROVIDERS: PCP Registered Nurse; Visit Provider Internal Medicine Cardiovascular Disease
PROC: 5A2204Z Restoration of Cardiac Rhythm, Single (ICD-10-PCS; principal; 2023-06-11 14:00)
DX: I48.3 Typical atrial flutter (principal); I25.10 Atherosclerotic heart disease of native coronary artery without angina pectoris; I10 Essential (primary) hypertension; E11.9 Type 2 diabetes mellitus without complications; Z79.01 Long term (current) use of anticoagulants; Z79.4 Long term (current) use of insulin; Z88.5 Allergy status to narcotic agent
CPT/HCPCS: 82947; 92960; 93005

== ENCOUNTER → 2023-06-11 12:34 | Outpatient (BNV) | payer OTHER, SELFPAY | PROVIDERS: PCP Registered Nurse; Visit Provider Internal Medicine Cardiovascular Disease | DX: I48.92 Unspecified atrial flutter (principal) | CPT/HCPCS: 92960 ==

== ENCOUNTER 2023-07-05 18:15 | Outpatient (REF) | payer OTHER, SELFPAY ==
--- NOTE | ~2023-07-05 | MR_ITS ---
EXAMINATION: MR KNEE WITHOUT CONTRAST, LEFT CLINICAL INFORMATION: Left knee pain and burning radiating down the left leg. COMPARISON: Multiple priors, most recent left knee radiographs dated 10/24/2022. TECHNIQUE: MRI of the left knee without contrast was performed using routine sequences on a high-field scanner. FINDINGS: Evaluation limited secondary to patient motion. MENISCI: Medial Meniscus: Intact. Lateral Meniscus: Nondisplaced oblique inner margin tear of the meniscal body extending to the femoral articular surface of the anterior horn and tibial articular surface of the posterior horn. Attenuation and irregularity of the anterior and posterior roots, consistent with fraying/tearing. LIGAMENTS: Cruciate: Thickening and increased T2 signal throughout the anterior cruciate ligament, consistent with mucoid degeneration. Intact posterior cruciate ligament. Collateral: Intact. EXTENSOR MECHANISM: Intact quadriceps and patellar tendons. Superior and inferior patellar enthesophytes. Normal patellofemoral alignment. ARTICULAR CARTILAGE/BONE: Patellofemoral Compartment: Full-thickness articular cartilage loss with subchondral cystic change throughout the superior aspect of the patella extending to the inferior patellar median ridge and medial patellar facet. Diffuse trochlear articular cartilage thinning with areas of full-thickness loss at the medial trochlea where there are subchondral cysts. Marginal osteophytes. Medial Compartment: Weightbearing articular cartilage thinning and signal heterogeneity with tiny marginal osteophytes. Lateral Compartment: Weightbearing lateral femoral condyle and lateral tibial plateau full-thickness articular cartilage loss with mild bony remodeling as well as subchondral sclerosis and subchondral marrow edema. Marginal osteophytes. JOINT FLUID AND BURSAE: Moderate joint effusion and small Reed's cyst with synovitis. Superolateral loose body measuring up to 1.1 cm. Prominent circumferential subcutaneous edema. No organized fluid collection or abscess formation. MR/MR knee LT wo con IMPRESSION: 1. Nondisplaced oblique inner margin tear of the lateral meniscal body extending to the femoral articular surface of the anterior horn and tibial articular surface of the posterior horn. Attenuation and irregularity of the anterior and posterior roots, consistent with fraying/tearing. 2. Mucoid degeneration of the anterior cruciate ligament. 3. Severe lateral as well as moderate patellofemoral and mild medial compartment osteoarthritis. Moderate joint effusion and small Reed's cyst with synovitis. Superolateral loose body measuring up to 1.1 cm. 4. Prominent circumferential subcutaneous edema. No organized fluid collection or abscess formation.
== END 2023-07-05 18:16 | disposition home or self-care (01) ==
LOC: HO.MRI 18:15
PROVIDERS: PCP Registered Nurse; Visit Provider Internal Medicine
DX: M25.562 Pain in left knee (principal); G89.29 Other chronic pain
CPT/HCPCS: 73721

== ENCOUNTER → 2023-07-27 14:53 | Outpatient (REF) | payer OTHER, SELFPAY ==
--- NOTE | 2023-07-27 14:57 | CA_ITS ---
Transthoracic Echocardiogram Patient (Last, First, Middle): Mary Lou Godwin Z Gender: Female Date of : 1950 Age: 73 Procedure Date: 07/27/2023 Procedure Type: Transthoracic Echocardiogram Location: OP Height: 154.94 cm Weight: 109.32 kg BSA: 2.04 m2 Heart Rate: bpm BP: 130 / 60 mmHg Real Estate Sales Manager: SUGAR Referring MD: Faviola Stovall [employer] Director Of District Office: Sravan Méndez MD Symptoms: I48.92 - Unspecified atrial flutter Study Quality: Technically Difficult ECG Rhythm: Sinus bradycardia Conclusions: - 1. Technically limited study 2. Normal LV ejection fraction 65-70% with moderate LVH with pseudonormal filling pattern 3. At least mildly dilated left atrium 4. Mild aortic stenosis 5. Normal measured RV systolic pressure 6. Mildly dilated ascending aorta at 4 cm Findings Procedure Information The study quality is limited by the patients inability to tolerate the test. Left Ventricle Normal left ventricular cavity size. There is moderately increased left ventricular wall thickness. The left ventricular systolic function is normal. The visually estimated ejection fraction is between 65-70%. Regional wall motion abnormalities can not be excluded due to suboptimal endocardial definition. Spectral Doppler is indicative of a pseudonormal filling pattern. E/E prime ratio is between 8 and 15 consistent with indeterminate filling pressures. Right Ventricle Normal right ventricular cavity size and systolic function. Atria The left atrium is mildly dilated. Interatrial shunt cannot be excluded. The right atrium was not well visualized. Aortic Valve There is mild calcification of the aortic valve. There is mild aortic valve stenosis. The peak aortic gradient is 21 mmHg.The mean gradient is 11 mmHg. There is no aortic valve regurgitation. Mitral Valve There is mild anterior and posterior mitral leaflet thickening. There is mild mitral annular calcification. There is trace mitral valve regurgitation. There is no mitral valve stenosis. Pulmonic Valve The pulmonic valve was not well visualized. Tricuspid Valve Likely normal tricuspid valve structure and function. There is mild tricuspid valve regurgitation. The right ventricular systolic pressure is normal. The right ventricular systolic pressure is 28 mmHg. Normal right atrial pressure. There is no evidence of pulmonary hypertension. Great Vessels The pulmonary artery was not well visualized. There is mild dilatation of the ascending aorta measuring 4.00 cm. Venous The inferior vena cava is normal in size and collapses greater than 50% with inspiration. Pericardium/Pleural The pericardium was not well visualized. Measurements 2D Linear Measurements IVSd: 1.53 0.6-0.9/0.6-1.0 cm LVIDd: 4.08 3.9-5.3/4.2-5.9 cm LVIDd Index: 2.00 2.4-3.2/2.2-3.1 cm/m2 LVIDs: 3.15 2.0-3.6 cm LVPWd: 1.51 0.7-1.1 cm LA Diam: 5.10 2.7-3.8/3.0-4.0 cm LAIDs Index: 2.50 1.5-2.3 cm/m2 LV Mass: 304.75 67-162/88-224 g LV Mass Index: 149.39 43-95/49-115 g/m2 LVOT Diam: 2.20 3.0+(-)1.3 cm 2D Systolic Function EF 4C: 69.70 >55% EF 2C: 70.40 >55% EF BiP: 69.60 >55% Mitral Valve MV Pk E: 0.94 MV PK A: 0.69 MV Decel Time: 214.00 E/A: 1.40 E'Lateral: 8.81 E'Medial: 6.96 E/E' Med: 13.50 E/E' Lat: 10.70 PHT: 63.00 MVA PHT: 3.49 Decel Morrill: 4.40 Aortic Valve AoV Pk Hugh: 2.29 AoV Mn Hugh: 1.55 AoV VTI: 0.59 AoV Pk Grad: 21.00 Aov Mn Grad: 11.00 MICKY Cont.VTI: 1.49 LVOT LVOT Pk Hugh: 0.90 LVOT Mn Hugh: 0.62 LVOT VTI: 0.23 LVOT Pk Grad: 3.00 LVOT Mn Grad: 2.00 LVOT Diam: 2.20 LVOT Area: 3.80 Diastolic Function MV Pk E: 0.94 MV Pk A: 0.69 E/A: 1.40 E'Medial: 6.96 E/E' Med: 13.50 E' Laterial: 8.81 E/E' Lat: 10.70 Right Ventricle TAPSE (mm): 29.30 TVS' Hugh: 13.60 Tricuspid Valve TR Pk Hugh: 2.49 TR Pk Grad: 25.00 RA Press: 3.00 RVSP: 28.00 Great Vessels Aorta Sinus of Valsalva: 3.71 2.0-3.[address] Ridge: 2.83 1.7-3.4 cm Ao Asc: 4.00 2.1-3.4 cm Updated in Other Vendor System with Status of Final Sravan Méndez MD electronically signed on 07/28/2023 5:40:27 PM with status of Final
== END ==
LOC: HO.CARD 14:53
PROVIDERS: PCP Registered Nurse; Visit Provider Nurse Practitioner Family
DX: I48.92 Unspecified atrial flutter (principal); R06.02 Shortness of breath
CPT/HCPCS: 93306

== ENCOUNTER → 2023-07-27 14:57 | Outpatient (BNV) | payer OTHER, SELFPAY | PROVIDERS: PCP Registered Nurse; Visit Provider Internal Medicine Cardiovascular Disease | DX: I35.0 Nonrheumatic aortic (valve) stenosis (principal) | CPT/HCPCS: 93306 ==

== ENCOUNTER 2023-07-30 12:59 | Outpatient (AMB) | payer OTHER, SELFPAY ==
--- NOTE | 2023-07-30 13:18 | A.OFFVIS_ITS ---
Intake Vital Signs 07/30/23 13:19 Height 5 ft 2 in Weight 238 lb 1.588 oz BMI 43.5 BP 130/50 L Blood Pressure Location Lt brachial Position Sitting Pulse 52 Pulse Source Monitor Intake Visit Reasons: follow up echo Computer Security Coordinator Required: Yes Computer Security Coordinator Language: Timber Framer Helper Name: [id number] Accompanied by: Daughter Allergies codeine [CODEINE] Allergy (Intermediate, Verified 07/30/23 13:22) HALLUCINATIONS Medication List - Last Reconciled 07/30/23 by HOLDEN Hardy amiodarone 200 mg orally 2 tablets twice a day for 14 days, then reduce to 1 tablet daily; amlodipine 10 mg PO DAILY apixaban (Eliquis) 5 mg PO BID atorvastatin 80 mg PO BEDTIME calcium carbonate (Oyster Shell Calcium 500) 1 tab PO BID dulaglutide (Trulicity) 0.75 mg subcut QWEEK fenofibrate micronized 134 mg PO QAM 90 days fluoxetine 1 cap PO QAM fluticasone propionate 220 mcg/actuation (Flovent HFA) 1 puff PO BID furosemide (Lasix) 20 mg PO DAILY glipizide ER 1 tab PO QAM hydroxyzine HCl 1 tab PO BID hydroxyzine HCl 50 mg PO BEDTIME PRN insulin glargine (Lantus U-100 Insulin) 65 units subcut QPM metformin 1,000 mg PO BID metoprolol tartrate 25 mg PO BID 30 days nitrofurantoin macrocrystal 100 mg PO BID 14 days oxycodone-acetaminophen 10-325 mg 1 tab PO BID PRN trazodone 150 mg PO BEDTIME HPI follow up echo HPI Details Mary Lou is a 72-year-old female past medical history obesity, hypertension, hyperlipidemia, diabetes, CAD, newer finding of atrial flutter who presents after recent cardioversion and echo. Today she presents with her daughter. She reports that she does not feel well due to weakness and fatigue. She has some lightheadedness at times which she believes is related to her blood sugar. She does have some shortness of breath with activity. She is mostly sedentary and ambulates with a walker. She has no chest discomfort, palpitations, presyncope, syncope, falls. No PND, orthopnea. She does have bilateral leg edema. She is taking all her meds as directed. She denies any bleeding issues with Eliquis use. She is now on maintenance dose of amiodarone. Certified lang interpreter used [facility] Medical History Abuse of non-prescription analgesics Type 2 diabetes mellitus with unspecified complications Other and unspecified hyperlipidemia Essential hypertension Atherosclerotic cardiovascular disease Urgency incontinence Osteoporosis Arthritis Asthma Hypertension Fibromyalgia Diabetes mellitus Surgical History History of hernia repair Social History Alcohol intake: never Patient Tobacco Use Status: Never used Tobacco Review of Systems Const All systems reviewed & are unremarkable except as noted in HPI and below Reports fatigue and Reports lethargy ENT Reports dizziness Card Denies chest pain, Denies chest pain at rest, Denies chest pain with activity, Denies rapid heart rate, Denies pedal edema, Denies edema, Denies leg edema, Denies lightheadedness, Denies palpitations, Reports dyspnea, Denies dyspnea on exertion and Denies orthopnea Resp Denies cough, Reports dyspnea and Denies dyspnea on exertion GI Denies hematochezia and Denies change in stool character Musc Details: bilateral lower leg swelling Denies abnormal gait, Reports limited range of motion, Reports muscle cramps, Denies muscle weakness, Denies numbness, Denies radiating pain into limb, Denies stiffness and Denies tingling Neuro Denies abnormal gait, Reports dizziness, Denies numbness and Denies tingling Endo Reports fatigue and Denies palpitations Physical Exam Vital Signs: Last Vital Signs Pulse 52 07/30/23 13:19 BP 130/50 L 07/30/23 13:19 BMI result Body Mass Index 43.5 Const Other: pale skin color General: cooperative, comfortable and no acute distress Orientation/consciousness: patient oriented x3 Neck Neck: Yes normal visual inspection Resp Effort & Inspection: normal respiratory effort Auscultation: clear to auscultation bilaterally, no rales, no rhonchi and no wheezes Cardio Jugular venous distension: no JVD Rate: regular rate Rhythm: regular rhythm Heart sounds: S1 normal heart sound present, S2 normal heart sound present, no murmurs and no rubs Neuro General: patient oriented x3 Extrem Other: +1 bilateral lower leg edema Psych Appearance: grossly normal Mental Status: mental status grossly normal Speech and movement: Normal speech and movement present Office Procedures EKG Details: Today, read by me, sinus bradycardia, possible anterior infarct, age undetermined, rate 52, QTC 455 ibrahima sec [id number], Complete Assessment & Plan Assessment & Plan (1) Atrial flutter: Code(s): I48.92 - Unspecified atrial flutter Qualifiers: Atrial flutter type: typical Qualified Code(s): I48.3 - Typical atrial flutter Plan: Newer finding of atrial flutter. She was put on metoprolol for heart rate control. She was started on Eliquis 5 mg b.i.d. for anticoagulation 05/06/23. On last visit she had evidence of mild congestive heart failure. Labs did show elevated BNP and she was started on Lasix. She underwent a cardioversion 06/11/2023 with successful conversion to sinus rhythm. She was started on amiodarone load followed by maintenance dose at that time. Her metoprolol dose was reduced from 100 mg b.i.d. down to 50 mg b.i.d.. Echocardiogram done 07/27/2023 shows EF 65-70%, moderate LVH, mild , mildly dilated ascending aorta 4 cm. Today she reports having some weakness and fatigue. EKg done today showing sinus bradycardia, rate 52, QTC 455 milliseconds. According to our record patient was on 50 mg b.i.d. of metoprolol however after confirming with her she is actually taking 100 mg b.i.d.. At this time will have her reduce her dose by half and take 50 mg b.i.d. instead. Continue amiodarone. Will check labs today including CMP, CBC, TSH, BNP. Plan to call her with results. Cardiology follow-up 3 months, sooner if needed. (2) Leg edema: Code(s): R60.0 - Localized edema Plan: Plus one bilateral lower leg edema noted. She has been taking Lasix 20 mg daily. Labs ordered as above. Plan to increase Lasix to 40 mg daily if labs allow. (3) Coronary artery disease: Code(s): I25.10 - Atherosclerotic heart disease of [place] coronary artery without angina pectoris Plan: Reported history of CAD. Currently no reports of anginal sounding symptoms. She does have shortness of breath with activity which is likely multifactorial. She is not on aspirin as she is on Eliquis. She is on high-dose atorvastatin with ideal LDL goal less than 70. She is on metoprolol. Signs and symptoms of angina reviewed. (4) Essential hypertension: Code(s): I10 - Essential (primary) hypertension Plan: Controlled at present (5) CHF (congestive heart failure): Code(s): I50.9 - Heart failure, unspecified Plan: Mild congestive heart failure noted last visit. On exam today she does not appear grossly fluid overload. She does have some mild ankle edema however is morbidly obese and sedentary. (6) Anticoagulated: Code(s): Z79.01 - watermelon inspector (current) use of anticoagulants Plan: On Eliquis for atrial flutter (7) On amiodarone therapy: Code(s): Z79.899 - Other halfway (current) drug therapy Plan: Recently started on amiodarone. Orders: Orders Comprehensive Met. Panel Today I50.9 - Heart failure, unspecified Complete Blood Count no Diff Today Z79.01 - watermelon inspector (current) use of anticoagulants, Z79.899 - Other marine oil terminal superintendent (current) drug therapy TSH reflex Free T4 Today Z79.899 - Other halfway (current) drug therapy B Type Natriuretic Peptide Today I50.9 - Heart failure, unspecified Medications: New metoprolol tartrate Take 1 tab twice daily Dose has been adjusted to 50mg BID 50 mg PO BID 60 tabs 5RF Coding Level of Care Code Est Pt Level 4 (81216) Diagnoses Typical atrial flutter I48.3 Atrial flutter type: typical Leg edema R60.0 Coronary artery disease I25.10 Essential hypertension I10 CHF (congestive heart failure) I50.9 Anticoagulated Z79.01 On amiodarone therapy Z79.899 CPT Codes EKG - CPT: 89745-[id number], Complete ([id number]) Time Spent (min) 30
[2023-07-30 13:19] VITALS: BP 130/50; PULSE 52; BMI 43.5
== END 2023-07-30 14:06 | disposition home or self-care (01) ==
PROVIDERS: PCP Registered Nurse; Visit Provider Nurse Practitioner Family
DX: I48.3 Typical atrial flutter (principal); R60.0 Localized edema; I25.10 Atherosclerotic heart disease of native coronary artery without angina pectoris; I10 Essential (primary) hypertension; I50.9 Heart failure, unspecified; Z79.01 Long term (current) use of anticoagulants; Z79.899 Other long term (current) drug therapy
CPT/HCPCS: 93010; 99214

== ENCOUNTER 2023-07-30 12:59 | Outpatient (REF) | payer OTHER, SELFPAY ==
[2023-07-30 14:58] LABS: Hematocrit 39.1 % (37.0-47.0); Hemoglobin 12.6 g/dl (12.0-16.0); Mean Corpuscular HGB Conc 32.2 g/dl (31.0-35.0); Mean Corpuscular Hemoglobin 28.1 pg (27.0-33.0); Mean Corpuscular Volume 87.3 fL (80.0-98.0); Mean Platelet Volume 10.9 fL (9.4-12.3); Platelet Count 227 X10*3/uL (160-400); Red Blood Count 4.48 X10*6/uL (4.20-5.50); Red Cell Distribution Width 13.5 % (11.0-16.0); White Blood Count 9.1 X10*3/uL (4.8-10.8)
[2023-07-30 15:15] LABS: Alanine Aminotransferase 12 U/L (0-31); Albumin Level 3.7 g/dL (3.5-5.0); Alkaline Phosphatase 65 U/L (39-117); Anion Gap 13 (12-20); Anion Gap 14 (12-20); Aspartate Amino Transferase 17 U/L (5-31); Bilirubin Total 0.3 mg/dL (0.0-1.0); Blood Urea Nitrogen 31 mg/dL (9-16); Blood Urea Nitrogen 32 mg/dL (9-16); Carbon Dioxide 27 mmol/L (22-29); Carbon Dioxide 28 mmol/L (22-29); Chloride 105 mmol/L (96-108); Estimated Glomerular Filt Rate 36; Glucose Random 65 mg/dL (60-115); Potassium 4.8 mmol/L (3.3-5.1); Potassium 4.9 mmol/L (3.3-5.1); Sodium 140 mmol/L (135-145); Sodium 142 mmol/L (135-145); Total Protein 7.2 g/dL (6.5-8.0)
[2023-07-30 15:16] LABS: B Type Natriuretic Peptide 135 pg/mL (<100)
[2023-07-30 15:27] LABS: Estimated Average Glucose 134 mg/dL; Hemoglobin A1C 149.9705 umol/L; Hemoglobin A1c % 6.3 % (<6.0)
[2023-07-30 15:29] LABS: Parathyroid Hormone Intact 54.2 pg/mL (8.7-77.1)
[2023-07-30 15:31] LABS: TSH reflex Free T4 7.43 uIU/mL (0.32-4.0); Vitamin D 25-OH Total 20.8 ng/mL (>30)
[2023-07-30 16:23] LABS: Free T4 (Free Thyroxine) 0.97 ng/dL (0.71-1.85)
[2023-08-03 11:59] LABS: Kappa Light Chain, Free Serum 98.1 mg/L (3.3-19.4); Kappa/Lambda Lt Ch Free Ratio 1.54 (0.26-1.65); Lambda Light Chain, Free Serum 63.5 mg/L (5.7-26.3)
== END 2023-07-30 13:00 | disposition home or self-care (01) ==
LOC: HO.LAB 12:59
PROVIDERS: PCP Registered Nurse; Referring Provider Internal Medicine; Visit Provider Nurse Practitioner Family
DX: I13.0 Hypertensive heart and chronic kidney disease with heart failure and stage 1 through stage 4 chronic kidney disease, or unspecified chronic kidney disease (principal); N18.31 Chronic kidney disease, stage 3a; I50.9 Heart failure, unspecified; I25.10 Atherosclerotic heart disease of native coronary artery without angina pectoris; I48.3 Typical atrial flutter; R60.0 Localized edema; Z79.01 Long term (current) use of anticoagulants; Z79.4 Long term (current) use of insulin; Z79.899 Other long term (current) drug therapy
CPT/HCPCS: 36415; 80051; 80053; 82306; 82310; 82565; 83036; 83521; 83880; 83970; 84439; 84443; 84520; 85027; 93005; 99212

== ENCOUNTER 2023-08-10 13:00 | Outpatient (AMB) | payer OTHER, SELFPAY ==
[2023-08-10 13:11] VITALS: BP 122/62; PULSE 54; O2SAT 97; BMI 43.3
--- NOTE | 2023-08-10 13:11 | A.OFFVIS_ITS ---
Intake Vital Signs 08/10/23 13:11 Height 5 ft 2 in Weight 236 lb 15.951 oz BMI 43.3 BP 122/62 Blood Pressure Location Rt brachial Position Sitting Pulse 54 Pulse Source Doppler Pulse Oximetry (%) 97 Oxygen Delivery Method Room Air Intake Visit Reasons: Asthma Grey Roll Worker Required: Yes Grey Roll Worker Name: Ann Graham Olivares Allergies codeine [CODEINE] Allergy (Intermediate, Verified 07/30/23 13:22) HALLUCINATIONS HPI Asthma HPI Details 73-year-old lady, nonsmoker, with underl anastasia AFib and diastolic heart failure with significant lower extremity edema, recently on diuretic with improving edema, referred for evaluation pulmonary component to her symptoms. Patient states that she was told that she has had asthma since 2005 and she has been using Flovent and albuterol MDI with essentially no significant improvement in his symptoms. She denies family history of lung disease. Patient denies environmental allergies. She has no pets. 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 She does complain of significant orthopnea and paroxysmal nocturnal dyspnea. She also complains of unrestful sleep and snoring. [facility] Medical History (Updated 08/10/23 @ 13:53 by Bruno Reynolds MD) Abuse of non-prescription analgesics Type 2 diabetes mellitus with unspecified complications Other and unspecified hyperlipidemia Essential hypertension Atherosclerotic cardiovascular disease Urgency incontinence Osteoporosis Arthritis Asthma Hypertension Fibromyalgia Diabetes mellitus Surgical History History of hernia repair Social History Alcohol intake: never Patient Tobacco Use Status: Never used Tobacco Review of Systems Const Denies daytime sleepiness, Denies excessive sweating, Denies fatigue, Denies fever(s), Denies lethargy, Denies malaise, Denies night sweats, Denies snoring and Denies weight loss Eyes Denies blurry vision and Denies itchy eyes ENT Denies nasal congestion, Denies post nasal drip, Denies sinus pain, Denies sinus pressure and Denies other ( Thrush) Card Denies chest pain, Denies pedal edema, Denies dyspnea, Reports dyspnea on exertion, Reports orthopnea and Reports paroxysmal nocturnal dyspnea Resp Denies cough, Denies hemoptysis, Denies excessive phlegm production, Denies dyspnea, Reports dyspnea on exertion, Denies snoring and Denies wheezing GI Denies abdominal pain and Denies heartburn Musc Denies myalgias, Denies arthralgias and Denies joint swelling Skin/Breast Denies rash Neuro Denies memory loss and Denies seizure-like activity Psych Denies abnormal sleep pattern, Denies anxiety and Denies memory loss Endo Denies excessive sweating, Denies fatigue and Denies heat intolerance Musa/Lymph Denies easy bruising Aller/Immun Denies itchy eyes, Denies seasonal rhinorrhea and Denies wheezing Physical Exam Vital Signs: Last Vital Signs Pulse 54 08/10/23 13:11 BP 122/62 08/10/23 13:11 Pulse Ox 97 08/10/23 13:11 Oxygen Delivery Method Room Air 08/10/23 13:11 BMI result Body Mass Index 43.3 Const General: no acute distress and alert Nutritional Appearance: obese Orientation/consciousness: Other orientation findings ( oriented) HEENT Head: Yes atraumatic Eyes General: appearance normal, both eyes and all related structures Sclerae: sclerae normal EOM: EOMs intact bilaterally Neck Neck: Yes supple Lymphatic: no lymphadenopathy noted Resp Effort & Inspection: normal respiratory effort and no use of accessory muscles Auscultation: crackles (Bibasilar) Cardio Rate: regular rate Rhythm: regular rhythm Heart sounds: no gallops, no murmurs and no rubs Skin General skin exam: other ( warm) Extrem General: No clubbing, No cyanosis and Yes edema (3+ bilateral) Office Procedures 6 Minute Walk Time:: 13:45 SPO2 % at rest: 96 Pulse at rest: 51 SPO2 % during excercise: 96 Pulse during excercise: 61 SPO2 % after excercise: 96 Pulse after excercise: 60 Distance in yards walked: 120 Aide Score: 2 Performance Observations:: Mary Lou walked on level ground with the assistance of wheeled walker, she walked on room air the entire walk. She maintained her SPO2 96-97% during the entire walk. No supplemental O2 needed. [address]9824 - 6 Minute Walk Assessment & Plan Assessment & Plan (1) ANILA (obstructive sleep apnea): Code(s): G47.33 - Obstructive sleep apnea (adult) (pediatric) Plan: Unrestful sleep, daytime somnolence, snoring. Castell Sleepiness Scale score of 16. Will obtain home sleep study. (2) Asthma: Code(s): J45.909 - Unspecified asthma, uncomplicated Plan: Unclear if patient does have underlying asthma or not as she may be having all her respiratory symptoms from pulmonary edema.. Will continue currently on Flovent and albuterol MDI. Will obtain full PFT. (3) Leg edema: Code(s): R60.0 - Localized edema Plan: Patient recently started on diuretic and states that her edema has been slowly improving. Will continue occurring does. 6 minute walk test/oxygen evaluation performed. At this time patient does not require supplemental oxygen to maintain normal oximetry with exertion. Orders: Orders AMB 6 minute walk Today R06.02 - Shortness of breath PFT pulmonary function test Today J45.909 - Unspecified asthma, uncomplicated RT home sleep study Today G47.33 - Obstructive sleep apnea (adult) (pediatric) Coding Level of Care Code New Pt Level 4 (35254) Diagnoses ANILA (obstructive sleep apnea) G47.33 Asthma J45.909 Leg edema R60.0 CPT Codes Coding ([id number])
[2023-08-10 13:52] VITALS: PULSE 51; O2SAT 96
== END 2023-08-10 13:53 | disposition home or self-care (01) ==
PROVIDERS: PCP Registered Nurse; Referring Provider Internal Medicine; Visit Provider Internal Medicine Pulmonary Disease
DX: G47.33 Obstructive sleep apnea (adult) (pediatric) (principal); J45.909 Unspecified asthma, uncomplicated; R60.0 Localized edema
CPT/HCPCS: 94618; 99204

== ENCOUNTER → 2023-08-10 13:00 | Outpatient (BNVA) | payer OTHER, SELFPAY | PROVIDERS: PCP Registered Nurse; Referring Provider Internal Medicine; Visit Provider Internal Medicine Pulmonary Disease | DX: J45.909 Unspecified asthma, uncomplicated (principal); R06.02 Shortness of breath; R60.0 Localized edema; G47.33 Obstructive sleep apnea (adult) (pediatric) | CPT/HCPCS: 94618; 99202 ==

== ENCOUNTER 2023-09-02 09:56 | Outpatient (REF) | payer OTHER, SELFPAY ==
--- NOTE | 2023-09-02 11:22 | PFT_ITS ---
Flows: FEV1: 64 % of predicted at 1.17 L FVC: 51 % of predicted at 1.20 L FEV1/FVC: 97 % Bronchodilator response: Patient was too fatigued to perform post bronchodilator testing Volumes: Patient was unable to perform lung volumes or diffusion capacity maneuvers. Impression: No obstructive ventilatory defect. Suggestion of restrictive ventilatory defect on spirometry. Patient was unable to perform post bronchodilator testing or lung volume/diffusion capacity maneuvers. MTDD
== END 2023-09-02 09:57 | disposition home or self-care (01) ==
LOC: HO.RESP 09:56
PROVIDERS: PCP Registered Nurse; Visit Provider Internal Medicine Pulmonary Disease
DX: J45.909 Unspecified asthma, uncomplicated (principal)
CPT/HCPCS: 94010; 94727; 94729

== ENCOUNTER → 2023-09-02 11:22 | Outpatient (BNV) | payer OTHER, SELFPAY | PROVIDERS: PCP Registered Nurse; Visit Provider Internal Medicine Pulmonary Disease | DX: J45.909 Unspecified asthma, uncomplicated (principal) | CPT/HCPCS: 94060; 94729 ==

== ENCOUNTER → 2023-09-20 12:44 | Outpatient (REF) | payer OTHER, SELFPAY | LOC: HO.SL 12:44 | PROVIDERS: Visit Provider Internal Medicine Pulmonary Disease | DX: Z13.89 Encounter for screening for other disorder (principal) ==

== ENCOUNTER 2023-10-19 13:42 | Outpatient (AMB) | payer OTHER, SELFPAY ==
[2023-10-19 14:22] VITALS: BP 120/60; PULSE 60; BMI 43.5
--- NOTE | 2023-10-19 14:22 | MHC.OFFVIS ---
Intake Vital Signs 10/19/23 14:22 Height 5 ft 2 in Weight 237 lb 10.533 oz BMI 43.5 BP 120/60 Blood Pressure Location Lt brachial Position Sitting Pulse 60 Intake Visit Reasons: 3 month follow up Intake Note: pt its here for a 3 m [facility] f/up/ pt its having some shortness of breath with some sharp pain on the right side. Lap Machine Tender Required: Yes Lap Machine Tender Name: amanda/sammy, [place] Accompanied by: Daughter Allergies codeine [CODEINE] Allergy (Intermediate, Verified 07/30/23 13:22) HALLUCINATIONS Medication List - Last Reconciled 10/19/23 by Faviola Stovall CORPORATE GENERAL MANAGER-C amiodarone 200 mg PO DAILY amlodipine 10 mg PO DAILY apixaban (Eliquis) 5 mg PO BID atorvastatin 80 mg PO BEDTIME calcium carbonate (Oyster Shell Calcium 500) 1 tab PO BID dulaglutide (Trulicity) 0.75 mg subcut QWEEK fenofibrate micronized 134 mg PO QAM 90 days fluoxetine 1 cap PO QAM fluticasone propionate 220 mcg/actuation (Flovent HFA) 1 puff PO BID furosemide 20 mg PO DAILY glipizide ER 1 tab PO QAM hydroxyzine HCl 1 tab PO BID insulin glargine (Lantus U-100 Insulin) 65 units subcut QPM metformin 1,000 mg PO BID metoprolol tartrate 50 mg PO BID nitrofurantoin macrocrystal 100 mg PO BID 14 days oxycodone-acetaminophen 10-325 mg 1 tab PO BID PRN trazodone 150 mg PO BEDTIME HPI 3 month follow up HPI Details Mary Lou is a 73-year-old female past medical history of obesity, hypertension, hyperlipidemia, diabetes, CAD, newer atrial flutter who presents for follow-up. Today she reports that she is having increasing shortness of breath. She has had leg edema for the last week. She has been sleeping on the couch. Intermittent cough, no fevers. Mostly sedentary and ambulating only short distances. No chest discomfort, palpitations, presyncope, syncope, falls. Taking all meds as directed. Daughter is present. Certified fire boat engineer used. [facility] Medical History Abuse of non-prescription analgesics Type 2 diabetes mellitus with unspecified complications Other and unspecified hyperlipidemia Essential hypertension Atherosclerotic cardiovascular disease Urgency incontinence Osteoporosis Arthritis Asthma Hypertension Fibromyalgia Diabetes mellitus Surgical History History of hernia repair Social History Alcohol intake: never Patient Tobacco Use Status: Never used Tobacco Review of Systems Const All systems reviewed & are unremarkable except as noted in HPI and below Denies chills, Denies fatigue, Denies fever(s), Denies frequent falls, Reports weakness, Denies weight gain and Denies weight loss ENT Denies dizziness Card Denies chest pain, Denies leg edema, Denies lightheadedness, Denies palpitations, Reports dyspnea, Reports dyspnea on exertion and Reports orthopnea Resp Denies cough, Reports dyspnea and Reports dyspnea on exertion GI Denies hematochezia Musc Details: Bilateral lower leg swelling Denies abnormal gait, Reports muscle weakness, Denies numbness, Denies radiating pain into limb and Denies tingling Neuro Denies abnormal gait, Denies dizziness, Denies frequent falls, Denies numbness, Denies tingling and Reports weakness Endo Denies fatigue and Denies palpitations Physical Exam Vital Signs: Last Vital Signs Pulse 60 10/19/23 14:22 BP 120/60 10/19/23 14:22 BMI result Body Mass Index 43.5 Const General: cooperative, comfortable and no acute distress Orientation/consciousness: patient oriented x3 HEENT Other: Pale skin color Neck Neck: Yes normal visual inspection and Yes no JVD Resp Other: Noted to be short of breath with walking Effort & Inspection: normal respiratory effort Auscultation: clear to auscultation bilaterally, rales (Fine rales in each base), no rhonchi and no wheezes Cardio Jugular venous distension: no JVD Rate: regular rate Rhythm: regular rhythm Heart sounds: S1 normal heart sound present, S2 normal heart sound present, no murmurs and no rubs Neuro General: patient oriented x3 Extrem Other: Tight pitting edema of her lower extremities from knees down Psych Appearance: grossly normal Mental Status: mental status grossly normal Speech and movement: Normal speech and movement present Office Procedures EKG Details: Today, read by me, normal sinus rhythm/ can not exclude atrial flutter, left axis deviation, possible anterior infarct rate 60 [id number], Complete Assessment & Plan Assessment & Plan (1) Atrial flutter: Code(s): I48.92 - Unspecified atrial flutter Qualifiers: Atrial flutter type: typical Qualified Code(s): I48.3 - Typical atrial flutter Plan: Newer finding of atrial flutter. She was put on metoprolol for heart rate control. She was started on Eliquis 5 mg b.i.d. for anticoagulation 05/06/23. She then had mild congestive heart failure and was put on lasix. She underwent a cardioversion 06/11/2023 with successful conversion to sinus rhythm. She was started on amiodarone load followed by maintenance dose at that time. Her metoprolol dose was reduced from 100 mg b.i.d. down to 50 mg b.i.d.. Echocardiogram done 07/27/2023 shows EF 65-70%, moderate LVH, mild , mildly dilated ascending aorta 4 cm. Today she reports having increased shortness of breath, leg edema. EKg shows sinus rhythm with possible anterior infarct, there is a question of some flutter waves and atrial flutter can not entirely be excluded. On exam she appears fluid overloaded with fine rales in her bases and pitting leg edema. Will check labs today including CBC, CMP, BNP, TSH. Continue amiodarone and metoprolol. Continue Lasix. Continue Eliquis for anticoagulation. Will check Holter monitor. Cardiology follow-up 4-6 weeks sooner if needed. (2) Leg edema: Code(s): R60.0 - Localized edema Plan: Plus 2 bilateral lower leg edema noted. She has been taking Lasix 20 mg daily. Labs ordered as above. Plan to increase Lasix to 40 mg daily if labs allow.- see below (3) Coronary artery disease: Code(s): I25.10 - Atherosclerotic heart disease of [place] coronary artery without angina pectoris Plan: Reported history of CAD. Currently no reports of anginal sounding symptoms. She does have shortness of breath with activity which is likely multifactorial. She is not on aspirin as she is on Eliquis. She is on high-dose atorvastatin with ideal LDL goal less than 70. She is on metoprolol. Signs and symptoms of angina reviewed. (4) Essential hypertension: Code(s): I10 - Essential (primary) hypertension Plan: Controlled at present (5) CHF (congestive heart failure): Code(s): I50.9 - Heart failure, unspecified Plan: Mild congestive heart failure noted on exam. Lab work pending. - labs completed prior to completion of this note. She does have elevated TSH. Will forward that to her PCP. BNP is normal however she is morbidly obese making reading not as reliable. Creatinine 1.43 which is similar to prior values. Will have her increase Lasix up to 40 mg daily until her swelling resolves then may go back to 20 mg daily.- will reeval at her follow up. (6) Anticoagulated: Code(s): Z79.01 - MCFP (current) use of anticoagulants Plan: On Eliquis for atrial flutter (7) On amiodarone therapy: Code(s): Z79.899 - Other joint terminal attack controller (current) drug therapy Plan: Recently started on amiodarone. Plan Time spent on chart review, documentation, interview assess Orders: Orders B Type Natriuretic Peptide Today R06.02 - Shortness of breath ECG 3 day holter monitor Today I48.92 - Unspecified atrial flutter, Z79.899 - Other joint terminal attack controller (current) drug therapy Complete Blood Count Auto Diff Today R06.02 - Shortness of breath Comprehensive Met. Panel Today R06.02 - Shortness of breath TSH reflex Free T4 Today R06.02 - Shortness of breath Medications: New furosemide (Lasix) 40 mg PO DAILY 30 tabs 3RF Coding Level of Care Code Est Pt Level 4 (00140) Diagnoses Typical atrial flutter I48.3 Atrial flutter type: typical Leg edema R60.0 Coronary artery disease I25.10 Essential hypertension I10 CHF (congestive heart failure) I50.9 Anticoagulated Z79.01 On amiodarone therapy Z79.899 CPT Codes EKG - CPT: 56578-[id number], Complete ([id number]) Time Spent (min) 30
== END 2023-10-19 14:57 | disposition home or self-care (01) ==
PROVIDERS: PCP Registered Nurse; Visit Provider Nurse Practitioner Family
DX: I48.3 Typical atrial flutter (principal); R60.0 Localized edema; I25.10 Atherosclerotic heart disease of native coronary artery without angina pectoris; I10 Essential (primary) hypertension; I50.9 Heart failure, unspecified; Z79.01 Long term (current) use of anticoagulants; Z79.899 Other long term (current) drug therapy
CPT/HCPCS: 93010; 99214

== ENCOUNTER 2023-10-19 13:42 | Outpatient (REF) | payer OTHER, SELFPAY ==
[2023-10-19 15:16] LABS: MANUAL DIFF FLAG NO
[2023-10-19 15:19] LABS: Basophils Absolute Auto 0.1 X10*3/uL (0.0-0.2); Basophils Percent Auto 0.6 % (0-2); Eosinophils Absolute Auto 0.4 X10*3/uL (0.0-0.4); Eosinophils Percent Auto 4.1 % (0-4); Hematocrit 39.1 % (37.0-47.0); Hemoglobin 12.4 g/dl (12.0-16.0); Imm Gran Abs Auto 0.04 X10*3/uL (0.00-0.03); Imm Gran Pct Auto 0.5 % (0.0-0.4); Lymphocytes Percent Auto 22.4 % (20-40); Mean Corpuscular HGB Conc 31.7 g/dl (31.0-35.0); Mean Corpuscular Hemoglobin 27.7 pg (27.0-33.0); Mean Corpuscular Volume 87.3 fL (80.0-98.0); Mean Platelet Volume 10.2 fL (9.4-12.3); Monocytes Absolute Auto 0.8 X10*3/uL (0.1-1.2); Monocytes Percent Auto 9.6 % (2-11); Neutrophils Absolute Auto 5.5 x10*3/uL (2.0-8.3); Neutrophils Percent Auto 62.8 % (45-73); Platelet Count 236 X10*3/uL (160-400); Red Blood Count 4.48 X10*6/uL (4.20-5.50); Red Cell Distribution Width 13.8 % (11.0-16.0); White Blood Count 8.7 X10*3/uL (4.8-10.8)
[2023-10-19 15:40] LABS: Alanine Aminotransferase 13 U/L (0-31); Albumin Level 3.5 g/dL (3.5-5.0); Alkaline Phosphatase 71 U/L (39-117); Anion Gap 14 (12-20); Aspartate Amino Transferase 15 U/L (5-31); Bilirubin Total 0.2 mg/dL (0.0-1.0); Blood Urea Nitrogen 21 mg/dL (9-16); Calcium 9.8 mg/dL (8.4-10.2); Carbon Dioxide 33 mmol/L (22-29); Chloride 102 mmol/L (96-108); Estimated Glomerular Filt Rate 36; Glucose Random 94 mg/dL (60-115); Potassium 4.9 mmol/L (3.3-5.1); Sodium 144 mmol/L (135-145); Total Protein 6.7 g/dL (6.5-8.0)
[2023-10-19 15:55] LABS: TSH reflex Free T4 18.47 uIU/mL (0.32-4.0)
[2023-10-19 16:00] LABS: B Type Natriuretic Peptide 39 pg/mL (<100)
[2023-10-19 17:35] LABS: Free T4 (Free Thyroxine) 0.95 ng/dL (0.71-1.85)
== END 2023-10-19 13:43 | disposition home or self-care (01) ==
LOC: HO.LAB 13:42
PROVIDERS: PCP Registered Nurse; Visit Provider Nurse Practitioner Family
DX: I48.3 Typical atrial flutter (principal); R06.02 Shortness of breath; I25.10 Atherosclerotic heart disease of native coronary artery without angina pectoris; R60.0 Localized edema; I11.0 Hypertensive heart disease with heart failure; I50.9 Heart failure, unspecified; Z79.01 Long term (current) use of anticoagulants; Z79.899 Other long term (current) drug therapy
CPT/HCPCS: 36415; 80053; 83880; 84439; 84443; 85025; 93005; 99212

== ENCOUNTER 2023-10-25 18:13 | Inpatient (IN) | payer OTHER, SELFPAY ==
--- NOTE | ~2023-10-25 | MR_ITS ---
EXAMINATION: MR LUMBAR SPINE WITHOUT CONTRAST CLINICAL INFORMATION: Radicular pain. COMPARISON: None. TECHNIQUE: Multiplanar, multisequence imaging was obtained. FINDINGS: VERTEBRAL BODIES AND PARASPINAL STRUCTURES: The marrow signal is heterogeneous with regions of fatty change. There is multilevel reduced intradiscal signal and loss of disc height as a result of spondylosis. Mild rightward lumbar spinal curvature evident. There is significant chronic fatty marrow endplate changes versus at the L4-5 level where there is a grade 1 anterolisthesis. Chronic disc desiccation and severe loss of disc height with a posterior subluxation evident at the T12-L1 level. The paraspinal soft tissues appear normal. Bilateral renal cysts are partially visualized, for which no further imaging followup is indicated. An enlarged fibroid uterus is partially visualized with a dominant fibroid measuring 4.5 cm in the uterine fundus. CONUS MEDULLARIS AND CAUDA EQUINE: The distal cord, conus tip, and cauda equina nerve roots are normal. SPINAL LEVELS: T12-L1: Disc desiccation and severe loss of disc height with a posterior subluxation and disc bulge. Mild facet arthropathy without significant central canal stenosis. A small left subarticular to left lateral recess disc extrusion migrates superiorly with potential mild mass effect upon the left T12 nerve root. L1-L2: Mild facet arthrosis. No disc pathology. No central canal stenosis or foraminal narrowing. Question of a mild chronic superior endplate compression deformity at L2 without osseous retropulsion. L2-L3: Mild loss of disc height and broad-based disc bulge with istn-kr-ejleviuh facet arthrosis. No central canal stenosis. Small central disc protrusion. Bulging disc slightly encroaches upon the neural foramina. L3-L4: Moderate loss of disc height and mild posterior subluxation with a small central disc extrusion and generalized disc bulge with mild facet arthropathy. No central canal stenosis. Bulging disc mildly impresses upon both exiting L3 nerve roots with mild foraminal encroachment. L4-L5: Anterolisthesis and unroofed disc bulge with moderate facet arthropathy results in moderate central canal stenosis and thecal sac distortion. Focal right subarticular zone disc extrusion noted without nerve root impingement. Cbre-ex-wtpcfjob bilateral foraminal narrowing. Bulging disc mildly distorts the exiting left L4 nerve root. L5-S1: Mild retrosubluxation and disc bulge with hypertrophic facet arthropathy. No central canal stenosis. Mild right foraminal narrowing. Left foraminal disc protrusion mildly distorts the exiting left L5 nerve root with pyfu-tm-wofsrsov encroachment. MR/MR lumbar spine wo con IMPRESSION: 1. Moderate multilevel lumbar spondylosis and rightward spinal curvature. 2. Severe loss of disc height and chronic disc desiccation at the T12-L1 level with a small left subarticular to left lateral recess disc extrusion abutting the left T12 nerve root. 3. Small central disc protrusion and mild posterior subluxation at the L3-L4 level with bulging disc mildly distorting the exiting L3 nerve roots. 4. Mild anterolisthesis and moderate facet arthropathy at the L4-L5 level with moderate central canal stenosis. Bulging disc mildly distorts the exiting left L4 nerve root. 5. Left foraminal disc protrusion at the L5-S1 level mildly distorting the left L5 nerve root with jfzo-oq-akrfhvib foraminal encroachment. 6. Enlarged fibroid uterus.
[2023-10-25 18:24] VITALS: BP 121/58; BP 148/88; PULSE 59; PULSE 60; RESP 18; TEMP 36.2; O2SAT 97; O2SAT 99; BMI 68.3
[2023-10-25 19:03] LABS: Appearance Urine Clear; Color Urine Yellow; Glucose Urine UA >=1000 mg/dL (Negative); Leukocyte Esterase Urine Small (1+) (Negative); Nitrite Urine Negative (Negative); UMIC TRIGGER UACC YES; Urine Blood Trace (Negative); Urine Ketones Negative (Negative); Urine Protein Negative (Neg-Trace)
[2023-10-25 19:09] LABS: Bacteria Urine 3+ (None Seen); Hyaline Casts Urine 0-2 /LPF (0-2); Squamous Epithelial Cell Urine 0-2 /HPF (0-2); UACC Culture Trigger YES
[2023-10-25 19:11] LABS: Amphetamine Screen Urine Not Detected (Not Detect); Barbiturates, Urine Not Detected (Not Detect); Benzodiazepines Screen Urine Not Detected (Not Detect); Cannabinoid Screen Urine Not Detected (Not Detect); Cocaine Screen Urine Not Detected (Not Detect); Fentanyl, urine Not Detected (Not Detect); Opiate Screen Urine Not Detected (Not Detect); Phencyclidine Screen Urine Not Detected (Not Detect)
--- NOTE | 2023-10-25 19:41 | ED_ITS ---
HPI - General Adult General Chief complaint: Psychiatric Symptoms Stated complaint: SI,ANXIETY Time Seen by Provider: 10/25/23 18:30 Source: patient Mode of arrival: ambulatory Limitations: no limitations History of Present Illness HPI narrative: 73-year-old female with past medical history of hypertension, diabetes, depression, CHF, and atrial flutter AFib presents to ED for anxiety and depression. Patient states she is so anxious she has been crying hysterically and shaking. Patient denies any suicidal thoughts, but daughter states patient made suicidal ideation. Patient states she is worried about her little brother who is alone in [place]. Related Data Home Medications Medication Instructions Recorded Confirmed calcium carbonate 500 mg calcium 1 tab PO BID 07/22/20 10/25/23 (1,250 mg) tablet (Oyster Shell Calcium 500) glipizide 5 mg tablet, extended 1 tab PO QAM 07/22/20 10/26/23 release 24 hr insulin glargine 100 unit/mL 65 unit subcut QPM 07/22/20 10/26/23 subcutaneous solution (Lantus U-100 Insulin) amlodipine 10 mg tablet 10 mg PO DAILY 04/07/21 10/25/23 atorvastatin 80 mg tablet 80 mg PO BEDTIME 04/07/21 10/25/23 metformin 1,000 mg tablet 1,000 mg PO BID 04/07/21 10/26/23 trazodone 150 mg tablet 100 mg PO BEDTIME 11/09/22 10/26/23 aspirin 81 mg tablet,delayed 81 mg PO QPM 10/25/23 10/25/23 release dapagliflozin propanediol 10 mg 10 mg PO QAM 10/25/23 10/25/23 tablet (Farxiga) calcium 500 mg tablet 500 mg PO DAILY 10/26/23 10/26/23 hydroxyzine HCl 25 mg tablet 25 mg PO Q8H PRN anxiety 10/26/23 10/26/23 levothyroxine 25 mcg tablet 25 mcg PO DAILY 10/26/23 10/26/23 losartan 50 mg tablet 50 mg PO QAM 10/26/23 10/26/23 oxycodone-acetaminophen 10 mg-325 1 tab PO BID PRN Pain, Severe 10/26/23 10/26/23 mg tablet paroxetine HCl 40 mg tablet 40 mg PO QAM 10/26/23 10/26/23 Previous Rx's Medication Instructions Recorded apixaban 5 mg tablet (Eliquis) 5 mg PO BID #60 tabs 05/06/23 metoprolol tartrate 50 mg tablet 50 mg PO BID #60 tabs 07/30/23 amiodarone 200 mg tablet 200 mg PO DAILY #90 tabs 08/16/23 Allergies Allergy/AdvReac Type Severity Reaction Status Date / Time codeine [CODEINE] Allergy Intermediate HALLUCINATI Verified 10/26/23 14:14 ONS Review of Systems 2 Review of Systems: anxiety Yes all other systems are reviewed and are negative [facility] Past Medical History Medical History Abuse of non-prescription analgesics Type 2 diabetes mellitus with unspecified complications Other and unspecified hyperlipidemia Essential hypertension Atherosclerotic cardiovascular disease Urgency incontinence Osteoporosis Arthritis Asthma Hypertension Fibromyalgia Diabetes mellitus Surgical History History of hernia repair Social History Social History Household Members: Children Housing: Apartment Do you presently have visiting nurse or other home services: Yes Unable to assess alcohol history related to: Refusing to respond Alcohol intake: never Patient Tobacco Use Status: Never used Tobacco Use of substances other than those prescribed or required for medical reasons: No Have you been hit, kicked, punched, or otherwise hurt by someone within the past year? If so, by whom?: No Do you feel safe in your current relationship?: Yes Is there a partner from a previous relationship who is making you feel unsafe now?: No Advance Directives: No Advance Directives Information Provided: No Do you have thoughts of harming others: None Do you have a plan to hurt others: No Plan Recently lost weight without trying: No Nutrition Risks: No Nutritional Risk Patient : No : No Poor oral hygiene: No Physical Exam ED Vital Signs: Vital Signs - 24 hr 10/27/23 05:07 10/27/23 07:35 Pulse Rate 52 52 Respiratory Rate 16 Blood Pressure 119/56 L 119/56 L Pulse Oximetry 92 92 Oxygen Delivery Method Room Air BMI result Body Mass Index 68.3 Const General: cooperative, healthy appearing, comfortable, no acute distress, well developed, alert, awake and Physically active Orientation/consciousness: oriented to person, oriented to place, oriented to time and patient oriented x3 [facility] Head: Yes normal to inspection, Yes No palpable skull fracture present, Yes normocephalic, Yes atraumatic and No abrasion Eyes General: appearance normal, both eyes and all related structures Neck Neck: Yes normal visual inspection, Yes full ROM, Yes no lymphadenopathy, Yes no meningeal signs, Yes trachea midline, Yes supple, No anterior neck swelling and No tender Chest Chest palpation & inspection: normal inspection of the chest and normal palpation of entire chest wall Resp Effort & Inspection: normal respiratory effort and able to speak in complete sentences Auscultation: clear to auscultation bilaterally Cardio Jugular venous distension: no JVD Heart sounds: S1 normal heart sound present and S2 normal heart sound present GI Inspection: Yes normal to inspection Palpation (GI): Soft to palpation, not firm, nontender, no guarding and not rigid General: Yes no CVA tenderness Back/Spine/Pelvis Back: no CVA tenderness and No back tenderness Skin General skin exam: no rashes or lesions noted, elasticity normal and turgor normal Neuro General: oriented to person, oriented to place, oriented to time, patient oriented x3, gait normal, tone normal, moves all extremities, Normal light touch and pain sensation, no meningeal signs, no focal motor deficits, CN's II-XI intact bilaterally and normal sensation to monofilament Extrem General: Yes normal to inspection, Yes full ROM and Yes capillary refill normal Psych Appearance: grossly normal, well kempt and not disheveled Course Reevaluation(s) Reevaluation #1: seen and cleared by crisis for anxiety, will dc home Time: 10:34 Reevaluation #2: daughter states that she will not take her home, physician observation will continue as patient will need PT and case management for safety evaluation Time: 15:20 Reevaluation #3: Physician observation continued. VS stable, no acute events overnight, pending CM input, increased frequency of oxycodone as she is having more pain and asking for oxycodone more frequently Medications Administered Generic Name Dose Route Start Last Admin Trade Name Freq PRN Reason Stop Dose Admin Amiodarone HCl 200 mg 10/26/23 09:00 10/27/23 09:09 Amiodarone Hcl 200 Mg Tablet PO 200 mg DAILY JULIANNE Administration Amlodipine Besylate 10 mg 10/26/23 09:00 10/27/23 09:09 Amlodipine Besylate 10 Mg Tablet PO 10 mg DAILY JULIANNE Administration Protocol Apixaban 5 mg 10/26/23 11:00 10/27/23 21:12 Apixaban 5 Mg Tablet PO 5 mg BID JULIANNE Administration Aspirin 81 mg 10/26/23 21:00 10/27/23 21:12 Aspirin Enteric Coated 81 Mg Tablet.Dr PO 81 mg BEDTIME JULIANNE Administration Calcium Carbonate 500 mg 10/26/23 02:00 10/27/23 21:12 Calcium Carbonate 500 Mg Tablet PO 500 mg BID JULIANNE Administration Cefuroxime Axetil 250 mg 10/26/23 09:00 10/27/23 21:12 Cefuroxime Axetil 250 Mg Tablet PO 250 mg BID JULIANNE Administration Empagliflozin 10 mg 10/26/23 09:00 10/27/23 09:09 Empagliflozin 10 Mg Tablet PO 10 mg DAILY JULIANNE Administration Glipizide 5 mg 10/26/23 09:00 10/27/23 09:09 Glipizide Xl 5 Mg Tab.Er.24 PO 5 mg DAILY JULIANNE Administration Hydroxyzine HCl 25 mg 10/26/23 01:48 10/26/23 02:12 Hydroxyzine Hcl 25 Mg Tablet PO 25 mg Q8H PRN Administration anxiety Insulin Glargine 65 unit 10/26/23 21:00 10/27/23 21:26 Insulin Glargine,Hum.Rec.Anlog 100 Unit/Ml 10 Ml Vial SUBCUT 65 unit BEDTIME JULIANNE Administration Levothyroxine Sodium 25 mcg 10/26/23 06:30 10/27/23 04:42 Levothyroxine Sodium 25 Mcg Tablet PO 25 mcg DAILY@0630 JULIANNE Administration Losartan Potassium 50 mg 10/26/23 09:00 10/27/23 09:17 Losartan Potassium 50 Mg Tablet PO Not Given DAILY JULIANNE Protocol Metoprolol Tartrate 50 mg 10/26/23 02:00 10/27/23 21:24 Metoprolol Tartrate 50 Mg Tablet PO Not Given BID JULIANNE Protocol Oxycodone HCl 10 mg 10/27/23 07:03 10/27/23 16:12 Oxycodone Hcl Immed Release 5 Mg Tablet PO 10 mg QID PRN Administration Pain, Severe Paroxetine HCl 40 mg 10/26/23 09:00 10/27/23 09:09 Paroxetine Hcl 40 Mg Tablet PO 40 mg DAILY JULIANNE Administration Trazodone HCl 100 mg 10/26/23 02:00 10/27/23 21:18 Trazodone Hcl 100 Mg Tablet PO 100 mg BEDTIME JULIANNE Administration Discontinued Medications Generic Name Dose Route Start Last Admin Trade Name Jesusq PRN Reason Stop Dose Admin Acetaminophen 975 mg 10/26/23 02:10 10/26/23 02:19 Acetaminophen 325 Mg Tablet PO 10/26/23 02:11 975 mg ONCE ONE Administration Acetaminophen 975 mg 10/27/23 00:31 10/27/23 00:34 Acetaminophen 325 Mg Tablet PO 10/27/23 00:32 975 mg ONCE ONE Administration Apixaban 5 mg 10/26/23 02:15 10/26/23 02:13 Apixaban 5 Mg Tablet PO 10/26/23 02:16 5 mg ONCE ONE Administration Cyclobenzaprine HCl 10 mg 10/27/23 04:34 10/27/23 04:42 Cyclobenzaprine Hcl 10 Mg Tablet PO 10/27/23 04:35 10 mg ONCE ONE Administration Lorazepam 2 mg 10/25/23 20:54 10/25/23 21:10 Lorazepam 1 Mg Tablet PO 10/25/23 20:55 2 mg ONCE ONE Administration Oxycodone HCl 10 mg 10/26/23 02:16 10/26/23 21:23 Oxycodone Hcl Immed Release 5 Mg Tablet PO 10 mg BID PRN Administration Pain, Severe Oxycodone HCl 5 mg 10/26/23 02:10 10/26/23 02:19 Oxycodone Hcl Immed Release 5 Mg Tablet PO 10/26/23 02:11 5 mg ONCE ONE Administration Medical Decision Making Medical Decision Making MDM Narrative: 73-year-old female presents ED for anxiety and depression. Patient having severe anxiety attack which caused her to cry hysterically and shake. Son cooperate story. Son does not believe mother is taking her psych medications. Labs ordered. Care team consult placed. Admission/Observation Consideration of admission/observation: Escalation of care including admission/observation considered (upon arrival admission was considered) Consult Healthcare Provider Management of the patient was discussed with: Behavioral Health Provider Lab Data 10/25/23 21:31 10/25/23 21:31 Labs: Lab Results 10/25/23 10/25/23 10/27/23 Range/Units 18:46 21:31 12:26 WBC 7.2 (4.8-10.8) X10*3/uL RBC 4.36 (4.20-5.50) X10*6/uL Hgb 12.2 (12.0-16.0) g/dl Hct 37.8 (37.0-47.0) % MCV 86.7 (80.0-98.0) fL MCH 28.0 (27.0-33.0) pg MCHC 32.3 (31.0-35.0) g/dl RDW 13.4 (11.0-16.0) % Plt Count 208 (160-400) X10*3/uL MPV 10.3 (9.4-12.3) fL Immature Gran % (Auto) 0.6 H (0.0-0.4) % Neut % (Auto) 63.5 (45-73) % Lymph % (Auto) 22.8 (20-40) % Kings % (Auto) 8.2 (2-11) % Eos % (Auto) 4.2 H (0-4) % Baso % (Auto) 0.7 (0-2) % Lymph # (Auto) 1.6 (1.2-4.9) X10*3/uL Kings # (Auto) 0.6 (0.1-1.2) X10*3/uL Eos # (Auto) 0.3 (0.0-0.4) X10*3/uL Baso # (Auto) 0.1 (0.0-0.2) X10*3/uL Abs Immat Gran (auto) 0.04 H (0.00-0.03) X10*3/uL Absolute Neuts (auto) 4.6 (2.0-8.3) x10*3/uL Absolute Nucleated RBC 0.000 (0.0-0.012) X10*3/uL Nucleated RBC % (auto) 0.0 (0.0-0.2) /100WBC Sodium 143 (135-145) mmol/L Potassium 4.3 (3.3-5.1) mmol/L Chloride 100 (96-108) mmol/L Carbon Dioxide 30 H (22-29) mmol/L Anion Gap 17 (12-20) BUN 29 H (9-16) mg/dL Creatinine 1.58 H (0.5-1.4) mg/dL Estim Creat Clear Calc 28.4 Estimated GFR 32 POC Glucose 156 H (60-115) mg/dL Random Glucose 194 H (60-115) mg/dL Calcium 9.0 D (8.4-10.2) mg/dL Total Bilirubin 0.2 (0.0-1.0) mg/dL AST 16 (5-31) U/L ALT 13 (0-31) U/L Alkaline Phosphatase 58 (39-117) U/L Total Protein 6.6 (6.5-8.0) g/dL Albumin 3.4 L (3.5-5.0) g/dL Urine Color Yellow Urine Appearance Clear Urine pH 6.0 (5.0-9.0) Ur Specific [place] 1.010 (1.005-1.025) Urine Protein Negative (Neg-Trace) mg/dL Urine Glucose (UA) >=1000 H (Negative) mg/dL Urine Ketones Negative (Negative) mg/dL Urine Blood Trace H (Negative) Urine Nitrite Negative (Negative) Ur Leukocyte Esterase Small (1+) H (Negative) Urine RBC 3-5 H (0-2) /HPF Urine WBC 11-20 H (0-5) /HPF Ur Squamous Epith Cells 0-2 (0-2) /HPF Urine Bacteria 3+ (None Seen) Hyaline Casts 0-2 (0-2) /LPF Urine Opiates Screen Not Detected (Not Detect) Urine Fentanyl Screen Not Detected (Not Detect) Ur Barbiturates Screen Not Detected (Not Detect) Ur Phencyclidine Scrn Not Detected (Not Detect) Ur Amphetamines Screen Not Detected (Not Detect) U Benzodiazepines Scrn Not Detected (Not Detect) Urine Cocaine Screen Not Detected (Not Detect) U Marijuana (THC) Screen Not Detected (Not Detect) Ethyl Alcohol < 10 mg/dL COVID-19 (ANN) Negative (Negative) COVID-19 Clin Com See Note Independent Historian Clinical information obtained from an independent historian. History obtained from or confirmed by: Other (family) External Record Review External record reviewed: Outpatient record Chronic Conditions Patient?s care impacted by: Hypertension and Other (chf, obesity) Discharge Plan Discharge Clinical Impression: Acute anxiety Patient Disposition: Admitted As Inpatient Interventions: [place]-Suicide Risk Severity Scale Last Done: 10/27/23 15:00 Admission Worksheet (ED) Last Done: 10/27/23 13:13 Discharge Date/Time: 10/27/23 14:28
[2023-10-25] MEDS: LORazepam 1 MG TABLET 2 MG PO (21:10)
[2023-10-25 21:36] LABS: MANUAL DIFF FLAG NO
[2023-10-25 21:38] LABS: Basophils Absolute Auto 0.1 X10*3/uL (0.0-0.2); Basophils Percent Auto 0.7 % (0-2); Eosinophils Absolute Auto 0.3 X10*3/uL (0.0-0.4); Eosinophils Percent Auto 4.2 % (0-4); Hematocrit 37.8 % (37.0-47.0); Hemoglobin 12.2 g/dl (12.0-16.0); Imm Gran Abs Auto 0.04 X10*3/uL (0.00-0.03); Imm Gran Pct Auto 0.6 % (0.0-0.4); Lymphocytes Absolute Auto 1.6 X10*3/uL (1.2-4.9); Lymphocytes Percent Auto 22.8 % (20-40); Mean Corpuscular HGB Conc 32.3 g/dl (31.0-35.0); Mean Corpuscular Volume 86.7 fL (80.0-98.0); Mean Platelet Volume 10.3 fL (9.4-12.3); Monocytes Absolute Auto 0.6 X10*3/uL (0.1-1.2); Monocytes Percent Auto 8.2 % (2-11); Neutrophils Absolute Auto 4.6 x10*3/uL (2.0-8.3); Neutrophils Percent Auto 63.5 % (45-73); Platelet Count 208 X10*3/uL (160-400); Red Blood Count 4.36 X10*6/uL (4.20-5.50); Red Cell Distribution Width 13.4 % (11.0-16.0); White Blood Count 7.2 X10*3/uL (4.8-10.8)
[2023-10-25 21:53] LABS: Alanine Aminotransferase 13 U/L (0-31); Albumin Level 3.4 g/dL (3.5-5.0); Alkaline Phosphatase 58 U/L (39-117); Anion Gap 17 (12-20); Aspartate Amino Transferase 16 U/L (5-31); Bilirubin Total 0.2 mg/dL (0.0-1.0); Blood Urea Nitrogen 29 mg/dL (9-16); Carbon Dioxide 30 mmol/L (22-29); Chloride 100 mmol/L (96-108); Creatinine Clr Calc Pharmacy 28.4; Estimated Glomerular Filt Rate 32; Ethanol < 10 mg/dL; Glucose Random 194 mg/dL (60-115); Potassium 4.3 mmol/L (3.3-5.1); Sodium 143 mmol/L (135-145); Total Protein 6.6 g/dL (6.5-8.0)
[2023-10-25 22:31] LABS: COVID-19 Test Negative (Negative); IDNOW Serial# 6674DD1D
[2023-10-26] MEDS: cefuroxime axetiL 250 MG TABLET PO ×3 (00:03→20:28)
--- NOTE | 2023-10-26 01:02 | MHC.CARE ---
Pt will be a follow up in the morning for the CARE Team as no collateral could be contacted this evening.
[2023-10-26 01:09] VITALS: BP 138/77; PULSE 65; RESP 18; TEMP 36.6; O2SAT 97
--- NOTE | 2023-10-26 01:19 | PC.NURSE ---
patient consistently complains in communal area, t/w optimistic that medications could improve patients comfort, asked for meds to be continued but seemingly there may be hold up in continuing meds.
[2023-10-26] MEDS: traZODone HCL 100 MG TABLET PO ×2 (02:12→20:28)
[2023-10-26] MEDS: hydrOXYzine HCL 25 MG TABLET PO (02:12)
[2023-10-26] MEDS: Metoprolol Tartrate 50 MG TABLET PO ×3 (02:13→20:28)
[2023-10-26] MEDS: Apixaban 5 MG TABLET PO ×3 (02:13→20:28)
[2023-10-26] MEDS: oxyCODONE HCl Immed Release 5 MG TABLET PO (02:19)
[2023-10-26] MEDS: Acetaminophen 325 MG TABLET 975 MG PO (02:19)
[2023-10-26] MEDS: Levothyroxine Sodium 25 MCG TABLET PO (07:07)
[2023-10-26] MEDS: Amiodarone HCL 200 MG TABLET PO (09:42)
[2023-10-26] MEDS: Losartan Potassium 50 MG TABLET PO (09:42)
[2023-10-26] MEDS: PARoxetine HCL 40 MG TABLET PO (09:42)
[2023-10-26] MEDS: amLODIPine Besylate 10 MG TABLET PO (09:42)
--- NOTE | 2023-10-26 09:45 | PC.NURSE ---
unscheduled dose of Ceftin given this am, night RN gave Ceftin around midnight which removed the morning dose in MAR
[2023-10-26] MEDS: glipiZIDE XL 5 MG TAB.ER.24 PO (09:49)
[2023-10-26] MEDS: Empagliflozin 10 MG TABLET PO (09:49)
[2023-10-26] MEDS: oxyCODONE HCl Immed Release 5 MG TABLET 10 MG PO ×2 (09:50→21:23)
--- NOTE | 2023-10-26 15:21 | PC.NURSE ---
patient moved to [facility] for comfort. Pt ambulated with slightly unsteady gait with walker. Pt was incontinent in brief, brief changed. Patient now settled into a bed, respirations even and unlabored, no apparent distress
--- NOTE | 2023-10-26 15:52 | MHC.CARE ---
Patient evaluated by the CARE Team and is referred for inpatient psychiatric treatment, she will remain in the ED until a placement is secured. ED provider, Dr. Urrutia updated with plan.
--- NOTE | 2023-10-26 16:03 | PC.NURSE ---
Patient appears to be sleeping, respirations even and unlabored, no apparent distress noted
--- NOTE | 2023-10-26 17:10 | MHC.CM.ED ---
CM spoke with Haleigh CHEEMA regarding patient disposition. Pt will be Inpatient psych. CM will defer patient to psych team.
--- NOTE | 2023-10-26 19:20 | PC.NURSE ---
patient appears to remain asleep at present respirations are even and unlabored patient looks significantly improved from yesterdays presentation
--- NOTE | 2023-10-26 19:33 | MHC.CARE ---
CARE Team called and completed the pre-cert with [facility]. Please call back when a bed is secured for an auth number. Also, please fax them daily updates/MSU's to [phone].
[2023-10-26 20:06] VITALS: BP 120/60; PULSE 55; RESP 18; TEMP 36.2; O2SAT 94
[2023-10-26] MEDS: Insulin Glargine,Hum.rec.anlog 100 UNIT/ML 10 ML VIAL 65 UNIT SUBCUT (20:28)
[2023-10-26] MEDS: Aspirin Enteric Coated 81 MG TABLET.DR PO (20:28)
--- NOTE | 2023-10-27 | ECG_ITS ---
Test Reason : Check QC Blood Pressure : / mmHG Vent. Rate : 057 BPM Atrial Rate : 057 BPM P-R Int : 218 ms QRS Dur : 090 ms QT Int : 468 ms P-R-T Axes : 042 -31 -04 degrees QTc Int : 455 ms Sinus bradycardia with 1st degree A-V block Left axis deviation Abnormal ECG When compared with ECG of 11-JUN-2023 14:14, Premature atrial complexes are no longer Present UT interval has increased Referred By: Alberto Askew Electronically Signed By:JUANPABLO BOSS
[2023-10-27] MEDS: Acetaminophen 325 MG TABLET 975 MG PO (00:34)
--- NOTE | 2023-10-27 04:41 | MHC.EDTECH ---
pt incontinent of urine. t/w and other MHT assisted pt to bathroom and changed all linens on bed. RN MADE AWARE.
[2023-10-27] MEDS: Levothyroxine Sodium 25 MCG TABLET PO (04:42)
[2023-10-27] MEDS: Cyclobenzaprine HCl 10 MG TABLET PO (04:42)
[2023-10-27 05:07] VITALS: BP 119/56; PULSE 52; RESP 16; O2SAT 92
--- NOTE | 2023-10-27 06:56 | PC.NURSE ---
Assumed care of patient at 0645, patient appears to be resting in bed, occasionally moaning in pain. Patient endorses lower back pain /. DO Akil aware. Patient has BID Oxycodone which help briefly but after a few hours, she is in pain again. Patient requesting something for the pain. Otherwise, patient is calm and cooperative, respirations even and unlabored, no apparent distress noted. Continue plan of care for inpatient [facility] bedsearch
[2023-10-27 07:35] VITALS: BP 119/56; PULSE 52; O2SAT 92
--- NOTE | 2023-10-27 09:03 | PC.NURSE ---
called pharmacy at 0845 for Jardiance and Glipizide
[2023-10-27] MEDS: Amiodarone HCL 200 MG TABLET PO (09:09)
[2023-10-27] MEDS: amLODIPine Besylate 10 MG TABLET PO (09:09)
[2023-10-27] MEDS: Empagliflozin 10 MG TABLET PO (09:09)
[2023-10-27] MEDS: PARoxetine HCL 40 MG TABLET PO (09:09)
[2023-10-27] MEDS: Metoprolol Tartrate 50 MG TABLET PO (09:09)
[2023-10-27] MEDS: glipiZIDE XL 5 MG TAB.ER.24 PO (09:09)
[2023-10-27] MEDS: oxyCODONE HCl Immed Release 5 MG TABLET 10 MG PO ×2 (09:10→16:12)
[2023-10-27] MEDS: Apixaban 5 MG TABLET PO ×2 (09:10→21:12)
[2023-10-27] MEDS: cefuroxime axetiL 250 MG TABLET PO ×2 (09:10→21:12)
--- NOTE | 2023-10-27 09:17 | PC.NURSE ---
blood pressure and HR on low side, will hold Losartan Potassium this am
--- NOTE | 2023-10-27 12:26 | PC.NURSE ---
This Rn assisted patient with changing out of soiled brief into new one. linens changed on bed, patient provided with extra blankets for comfort. Pt is reporting ongoing chronic back pain within minimal relief from medication. This Rn attempted to get patient as comfortable as possible. Pt has son visit as well. No apparent distress noted at this time, respirations even and unlabored
[2023-10-27 12:30] LABS: Glucose, Whole Blood 156 mg/dL (60-115)
--- NOTE | 2023-10-27 13:00 | PC.NURSE ---
report given to PHILLIP Sosa in [facility]
[2023-10-27 15:00] VITALS: BP 131/61; PULSE 55; RESP 18; TEMP 36.3; O2SAT 91; BMI 66.8
[2023-10-27 18:00] VITALS: BP 115/57; PULSE 51; RESP 16; TEMP 36; O2SAT 92
--- NOTE | 2023-10-27 18:45 | PC.ADMIT ---
Patient is a 73 y.o. female who [place] to [place] [facility] [place] Two days ago pt was admitted to ED for anxiety and depression. Patient stated she was so anxious she couldn't stop crying hysterically and shaking . Past medical history of HTN, Diabetes, Depression, CHF, AFib. Patient signed CV. Upon assessment pt alert, oriented x4, calm and cooperative. Denies anxiety/depression. Denies SI, HI,AVH. Patient Macedonian speaking/ seismic interpreter present. VS 131/61, P 55, T 97.3, R 18, O2sat 91% on RA. No signs of SOB or respiratory distress noted. Respirations even, unlabored. Denies use of O2 at home. Allergy to Codeine. Skin check completed, bilateral lower extr. red, scaly lesions. Pt c/o chronic back pain, medicated with PRN Oxycodone. Med was effective, pt reported decreased pain and feeling better. Mary Lou ambulates utilizing walker. Continent of bladder and bowels, however, likes to wear briefs. Living with adult children in an apartment. Assisted w/ADLs by her daughter. Mary Lou said, she was not vaccinated for Flu and refused to be vaccinated.
[2023-10-27] MEDS: Aspirin Enteric Coated 81 MG TABLET.DR PO (21:12)
[2023-10-27] MEDS: traZODone HCL 100 MG TABLET PO (21:18)
[2023-10-27] MEDS: Insulin Glargine,Hum.rec.anlog 100 UNIT/ML 10 ML VIAL 65 UNIT SUBCUT (21:26)
[2023-10-27 21:47] LABS: Glucose, Whole Blood 156 mg/dL (60-115)
[2023-10-28] MEDS: oxyCODONE HCl Immed Release 5 MG TABLET 10 MG PO ×2 (00:02→11:53)
[2023-10-28] MEDS: Levothyroxine Sodium 25 MCG TABLET PO (06:26)
[2023-10-28 06:42] LABS: Glucose, Whole Blood 112 mg/dL (60-115)
[2023-10-28 07:50] VITALS: BP 127/58; PULSE 61; RESP 16; TEMP 36.3; O2SAT 94
[2023-10-28] MEDS: cefuroxime axetiL 250 MG TABLET PO ×2 (08:28→20:30)
[2023-10-28] MEDS: Metoprolol Tartrate 50 MG TABLET PO (08:28)
[2023-10-28] MEDS: amLODIPine Besylate 10 MG TABLET PO (08:29)
[2023-10-28] MEDS: glipiZIDE XL 5 MG TAB.ER.24 PO (08:29)
[2023-10-28] MEDS: Amiodarone HCL 200 MG TABLET PO (08:29)
[2023-10-28] MEDS: Losartan Potassium 50 MG TABLET PO (08:29)
[2023-10-28] MEDS: PARoxetine HCL 40 MG TABLET PO (08:29)
[2023-10-28] MEDS: Apixaban 5 MG TABLET PO ×2 (08:29→20:30)
[2023-10-28] MEDS: Empagliflozin 10 MG TABLET PO (08:30)
--- NOTE | 2023-10-28 08:47 | P.HPPS_ITS ---
HPI Date of Service: 10/28/23 Chief Complaint: Psychosis Sources of Information: patient interviewed, chart reviewed and crisis/core team assessment reviewed HPI Subjective Notes: Samson Warning (given and shows understanding) and Conditional Voluntary Narrative: Mrs. Head is a 73 year-old womna who was brought to [facility] by her son due to what she referred to as panic attack. Daughter had also reported to assessment clinician that pt had expressed suicidal ideation. On the unit, pt presents as cooperative. She states she had episode were bilat LE were shaking, she felt pins and needles down her legs, more so on right on. She felt pressured on lower back pain. She reports she was worried about these symptoms and asked her son to bring her to the hospital. She reports these symptoms have been intermittent for the past few months.She adamantly denies reporting suicidal ideation. She reports she is a faithful woman and based on her spiritual believes she would never hurt herself or others. Furthermore, she denies feeling depressed or anxious. She denies worsening of her mood recently. She reports she has hx of depression several years ago but not recently. Her main concern appear to be mainly physical. She describes buring when urinating. UA suggestive of UTI and she was started on ceftin 250mg po BID x 7 days. She also reports hemorroids and constipation. She denies hx of visual or auditory hallucinations. No prior psychiatric admission. She denies hx of suicide attempts. Past Psychiatric History: Inpt: none OP: used to see therapist at [facility] Past medication trials: paxil Medical Evaluation Reviewed: Yes [facility] Medical History Abuse of non-prescription analgesics Type 2 diabetes mellitus with unspecified complications Other and unspecified hyperlipidemia Essential hypertension Atherosclerotic cardiovascular disease Urgency incontinence Osteoporosis Arthritis Asthma Hypertension Fibromyalgia Diabetes mellitus Surgical History History of hernia repair Family History: none Social History: lives with her son. She has 3 adult children: 2 daughters and one son. She reports having 13 grandchildren. Substance History: none Trauma History: denies Diagnostics Vital Signs (24Hr): Vital Signs - 24 hr 10/27/23 15:00 10/27/23 18:00 Temperature 97.3 F 96.8 F Pulse Rate 55 51 Respiratory Rate 18 16 Blood Pressure 131/61 115/57 L Pulse Oximetry 91 L 92 Oxygen Delivery Method Room Air Room Air BMI result Body Mass Index 66.8 Labs 10/25/23 21:31 10/28/23 08:03 Labs: Laboratory Results - last 48 hr 10/27/23 10/27/23 10/28/23 12:26 21:28 06:15 POC Glucose 156 H 156 H 112 Meds/Allergies Meds Home Medications Medication Instructions Recorded Confirmed Type calcium carbonate 500 mg calcium 1 tab PO BID 07/22/20 10/25/23 History (1,250 mg) tablet (Oyster Shell Calcium 500) glipizide 5 mg tablet, extended 1 tab PO QAM 07/22/20 10/26/23 History release 24 hr insulin glargine 100 unit/mL 65 unit subcut QPM 07/22/20 10/26/23 History subcutaneous solution (Lantus U-100 Insulin) amlodipine 10 mg tablet 10 mg PO DAILY 04/07/21 10/25/23 History atorvastatin 80 mg tablet 80 mg PO BEDTIME 04/07/21 10/25/23 History metformin 1,000 mg tablet 1,000 mg PO BID 04/07/21 10/26/23 History trazodone 150 mg tablet 100 mg PO BEDTIME 11/09/22 10/26/23 History aspirin 81 mg tablet,delayed 81 mg PO QPM 10/25/23 10/25/23 History release dapagliflozin propanediol 10 mg 10 mg PO QAM 10/25/23 10/25/23 History tablet (Farxiga) calcium 500 mg tablet 500 mg PO DAILY 10/26/23 10/26/23 History hydroxyzine HCl 25 mg tablet 25 mg PO Q8H PRN anxiety 10/26/23 10/26/23 History levothyroxine 25 mcg tablet 25 mcg PO DAILY 10/26/23 10/26/23 History losartan 50 mg tablet 50 mg PO QAM 10/26/23 10/26/23 History oxycodone-acetaminophen 10 mg-325 1 tab PO BID PRN Pain, Severe 10/26/23 10/26/23 History mg tablet paroxetine HCl 40 mg tablet 40 mg PO QAM 10/26/23 10/26/23 History Allergies Allergies Allergy/AdvReac Type Severity Reaction Status Date / Time codeine [CODEINE] Allergy Intermediate HALLUCINATI Verified 10/26/23 14:14 ONS Mental Status Exam Mental Status Exam Narrative: Appearance: MO, good hygiene, in NAD Behavior: cooperative and friendly Psychomotor: no agitation or retardation noted Speech: clear, normal rate/rhythm/volume, spontaneous TP: linear TC:physical concerns, but mental health concerns Mood: good Affect: brightens SI: denies HI: denies VH/AH: none Delusions: none Insight/judgment: fair x 2. Memory/cog: alert, oriented x 3. pending MOCA/ACL. Assessment & Plan Assessment & Plan (1) MDD (major depressive disorder), recurrent episode, moderate: Status: Acute Code(s): F33.1 - Major depressive disorder, recurrent, moderate Plan Mrs. Head is a 73 year-old woman who was brought to [facility] by her son due to episode of bilat LE shakiness, pin and needles sensation, pressured on lower back, radiating pain more on right leg than left. She referred to these symptoms as panic attack however, these symptoms are more consistent with radicular pain. Otherwise, pt denies worsening of mood in terms of depression or anxiety. She reports hx of depression but states that it has been well controlled over the years. No SI/HI. She presents as future oriented. Her main concerns are physical: UTI, hemorroids, difficulty sleep (pending sleep study), radicular pain, SOB(was seen by pulmonology recently in 08/2023). PLAN 1. admit to s1, CV, 15 minutes checks for safety. 2. unclear if paxil is new prescription or not. if new may want to coonsider different antidepressant with less anticholinergic s/e. 3. consult to neurology for radicular pain 4. hydrocortizone 2.5% RP for hemorroids. 5. continue ceftin for UTI x 7 days 6. sleep study 7. attempted to call daughter to obtain collateral information: left VM with call back number 8. Aftercare planning. Patient educated on: diagnosis Reason for continued inpatient stay Substantial Risk for: inability to function Statement Statement: I have reviewed the history and physical and performed a pertinent examination on my patient. No changes have occurred unless specified. If the History and Physical was not performed prior to admission, the Hospitalist's service will be consulted for completing the admission physical. Time Spent With Patient Time: Total time managing care of this patient today ____ minutes.
[2023-10-28 08:49] LABS: Alanine Aminotransferase 18 U/L (0-31); Albumin Level 3.4 g/dL (3.5-5.0); Alkaline Phosphatase 67 U/L (39-117); Anion Gap 15 (12-20); Aspartate Amino Transferase 18 U/L (5-31); Bilirubin Total 0.2 mg/dL (0.0-1.0); Blood Urea Nitrogen 22 mg/dL (9-16); Calcium 9.6 mg/dL (8.4-10.2); Carbon Dioxide 31 mmol/L (22-29); Chloride 101 mmol/L (96-108); Cholesterol 132 mg/dL (<200); Creatinine Clr Calc Pharmacy 39.7; Estimated Glomerular Filt Rate 48; Glucose Fasting 120 mg/dL (60-99); HDL Cholesterol 27 mg/dL (>40); LDL Cholesterol Calculated 34 mg/dL (<100); Potassium 4.5 mmol/L (3.3-5.1); Sodium 142 mmol/L (135-145); Total Protein 6.8 g/dL (6.5-8.0); Triglycerides 358 mg/dL (<150)
[2023-10-28 08:56] LABS: Estimated Average Glucose 131 mg/dL; Hemoglobin A1c % 6.2 % (<6.0)
[2023-10-28 09:17] LABS: Vitamin B12 346 pg/mL (200-900)
[2023-10-28 10:02] VITALS: BMI 66.9
[2023-10-28] MEDS: Sennosides/Docusate Sodium TABLET 1 TAB PO ×2 (11:49→23:33)
[2023-10-28 18:00] VITALS: BP 145/69; PULSE 57; RESP 16; TEMP 36.6; O2SAT 93
[2023-10-28] MEDS: Aspirin Enteric Coated 81 MG TABLET.DR PO (20:30)
[2023-10-28] MEDS: traZODone HCL 100 MG TABLET PO (20:30)
[2023-10-28] MEDS: Insulin Glargine,Hum.rec.anlog 100 UNIT/ML 10 ML VIAL 65 UNIT SUBCUT (20:31)
[2023-10-28 20:49] LABS: Glucose, Whole Blood 136 mg/dL (60-115)
--- NOTE | 2023-10-28 23:52 | PC.RT ---
Pt on RA for Sleep Study
[2023-10-29] MEDS: oxyCODONE HCl Immed Release 5 MG TABLET 10 MG PO ×3 (03:20→22:49)
[2023-10-29] MEDS: Levothyroxine Sodium 25 MCG TABLET PO (06:26)
[2023-10-29 06:36] LABS: Glucose, Whole Blood 106 mg/dL (60-115)
[2023-10-29 07:55] VITALS: BP 133/65; PULSE 62; RESP 20; TEMP 36.8; O2SAT 96
[2023-10-29] MEDS: PARoxetine HCL 40 MG TABLET PO (08:17)
[2023-10-29] MEDS: cefuroxime axetiL 250 MG TABLET PO ×2 (08:17→20:31)
[2023-10-29] MEDS: amLODIPine Besylate 10 MG TABLET PO (08:17)
[2023-10-29] MEDS: glipiZIDE XL 5 MG TAB.ER.24 PO (08:17)
[2023-10-29] MEDS: Sennosides/Docusate Sodium TABLET 1 TAB PO ×2 (08:17→20:31)
[2023-10-29] MEDS: Amiodarone HCL 200 MG TABLET PO (08:17)
[2023-10-29] MEDS: Metoprolol Tartrate 50 MG TABLET PO ×2 (08:17→20:30)
[2023-10-29] MEDS: Losartan Potassium 50 MG TABLET PO (08:17)
[2023-10-29] MEDS: Apixaban 5 MG TABLET PO ×2 (08:17→20:31)
[2023-10-29] MEDS: Empagliflozin 10 MG TABLET PO (08:18)
--- NOTE | 2023-10-29 14:30 | HO.PSYCHPN ---
Subjective Subjective Date of Service: 10/29/23 Reason For Visit: Psychosis Subjective Notes: Conditional Voluntary Interim History: The nursing staff reported the patient did not have any psychotic symptoms or panic attacks in the last 24 hours. She had been compliant with treatment. She had been eating well her metoprolol was held yesterday. The mental health social worker will try to get more collateral today. On interview the patient denies new symptoms she looks anxious but easily redirectable. Mental Status Exam Mental Status Exam Patient Appearance: Appropriate Patient Orientation: Person Level of Consciousness: Awake Patient Behavior: Guarded and Cooperative Mood Description: Calm Affect Description: Calm Patient Cognition Impaired: Yes Ability to Follow Directions: Good Speech Pattern: Clear Hallucinations: None Delusions: Not Present Thought Process: Distracted and Slowed Thinking Thought Content: positive for Al[place] and positive for Poverty of Content Judgement: Fair Diagnostics Vital Signs (24Hr): Vital Signs - 24 hr 10/28/23 18:00 10/29/23 07:55 Temperature 98 F 98.2 F Pulse Rate 57 62 Respiratory Rate 16 20 Blood Pressure 145/69 H 133/65 Pulse Oximetry 93 96 Oxygen Delivery Method Room Air Room Air BMI result Body Mass Index 66.9 Labs 10/25/23 21:31 10/28/23 08:03 Labs: Laboratory Results - last 48 hr 10/27/23 10/28/23 10/28/23 21:28 06:15 08:03 Sodium 142 Potassium 4.5 Chloride 101 Carbon Dioxide 31 H Anion Gap 15 BUN 22 H Creatinine 1.11 Estim Creat Clear Calc 39.7 Estimated GFR 48 POC Glucose 156 H 112 Fasting Glucose 120 H Estimat Average Glucose 131 Hemoglobin A1c % 6.2 H Calcium 9.6 D Total Bilirubin 0.2 AST 18 ALT 18 Alkaline Phosphatase 67 Total Protein 6.8 Albumin 3.4 L Triglycerides 358 H Cholesterol 132 LDL Cholesterol, Calc 34 HDL Cholesterol 27 L Vitamin B12 346 10/28/23 10/29/23 20:27 06:18 Sodium Potassium Chloride Carbon Dioxide Anion Gap BUN Creatinine Estim Creat Clear Calc Estimated GFR POC Glucose 136 H 106 Fasting Glucose Estimat Average Glucose Hemoglobin A1c % Calcium Total Bilirubin AST ALT Alkaline Phosphatase Total Protein Albumin Triglycerides Cholesterol LDL Cholesterol, Calc HDL Cholesterol Vitamin B12 Medications Medications Current Medications Acetaminophen (Acetaminophen 325 Mg Tablet) 650 mg PO Q6H PRN PRN Reason: Headache/Pain Mild Scale (1-3) Al Hydroxide/Mg Hydroxide (Magnesium Hydrox/Alum Hydrox 30 Ml Oral.Susp) 30 ml PO Q6H PRN PRN Reason: Heartburn/Nausea Amiodarone HCl (Amiodarone Hcl 200 Mg Tablet) 200 mg PO DAILY [facility] Last Admin: 10/29/23 08:17 Dose: 200 mg Amlodipine Besylate (Amlodipine Besylate 10 Mg Tablet) 10 mg PO DAILY [facility]; Protocol Last Admin: 10/29/23 08:17 Dose: 10 mg Apixaban (Apixaban 5 Mg Tablet) 5 mg PO BID [facility] Last Admin: 10/29/23 08:17 Dose: 5 mg Aspirin (Aspirin Enteric Coated 81 Mg Tablet.Dr) 81 mg PO BEDTIME [facility] Last Admin: 10/28/23 20:30 Dose: 81 mg Calcium Carbonate (Calcium Carbonate 500 Mg Tablet) 500 mg PO BID [facility] Last Admin: 10/29/23 08:17 Dose: 500 mg Cefuroxime Axetil (Cefuroxime Axetil 250 Mg Tablet) 250 mg PO BID [facility] Last Admin: 10/29/23 08:17 Dose: 250 mg Empagliflozin (Empagliflozin 10 Mg Tablet) 10 mg PO DAILY [facility] Last Admin: 10/29/23 08:18 Dose: 10 mg Glipizide (Glipizide Xl 5 Mg Tab.Er.24) 5 mg PO DAILY [facility] Last Admin: 10/29/23 08:17 Dose: 5 mg Hydrocortisone (Hydrocortisone 2.5 % Rectal Cr 30 Gm Tube) 1 appl [place] BEDTIME [facility] Last Admin: 10/28/23 22:56 Dose: Not Given Hydroxyzine HCl (Hydroxyzine Hcl 25 Mg Tablet) 25 mg PO Q8H PRN PRN Reason: anxiety Last Admin: 10/26/23 02:12 Dose: 25 mg Hydroxyzine HCl (Hydroxyzine Hcl 25 Mg Tablet) 25 mg PO Q6H PRN PRN Reason: Anxiety Insulin Glargine (Insulin Glargine,Hum.Rec.Anlog 100 Unit/Ml 10 Ml Vial) 65 unit SUBCUT BEDTIME [facility] Last Admin: 10/28/23 20:31 Dose: 65 unit Levothyroxine Sodium (Levothyroxine Sodium 25 Mcg Tablet) 25 mcg PO DAILY@0630 [facility] Last Admin: 10/29/23 06:26 Dose: 25 mcg Losartan Potassium (Losartan Potassium 50 Mg Tablet) 50 mg PO DAILY [facility]; Protocol Last Admin: 10/29/23 08:17 Dose: 50 mg Magnesium Hydroxide (Milk Of Magnesia 30 Ml Oral.Susp) 30 ml PO DAILY PRN PRN Reason: Constipation Metoprolol Tartrate (Metoprolol Tartrate 50 Mg Tablet) 50 mg PO BID [facility]; Protocol Last Admin: 10/29/23 08:17 Dose: 50 mg Oxycodone HCl (Oxycodone Hcl Immed Release 5 Mg Tablet) 10 mg PO QID PRN PRN Reason: Pain, Severe Last Admin: 10/29/23 03:20 Dose: 10 mg Paroxetine HCl (Paroxetine Hcl 40 Mg Tablet) 40 mg PO DAILY [facility] Last Admin: 10/29/23 08:17 Dose: 40 mg Senna/Docusate Sodium (Sennosides/Docusate Sodium Tablet) 1 tab PO BID [facility] Last Admin: 10/29/23 08:17 Dose: 1 tab Trazodone HCl (Trazodone Hcl 100 Mg Tablet) 100 mg PO BEDTIME [facility] Last Admin: 10/28/23 20:30 Dose: 100 mg Trazodone HCl (Trazodone Hcl 50 Mg Tablet) 50 mg PO BEDTIME PRN PRN Reason: Insomnia Allergies Allergies Allergy/AdvReac Type Severity Reaction Status Date / Time codeine [CODEINE] Allergy Intermediate HALLUCINATI Verified 10/26/23 14:14 ONS Assessment & Plan Assessment & Plan (1) MDD (major depressive disorder), recurrent episode, moderate: Status: Acute Code(s): F33.1 - Major depressive disorder, recurrent, moderate Plan Mrs. Head is a 73 year-old woman who was brought [place] [facility] [place] her son due to episode of bilat LE shakiness, pin and needles sensation, pressured on lower back, radiating pain more on right leg than left. She referred to these symptoms as panic attack however, these symptoms are more consistent with radicular pain. Otherwise, pt denies worsening of mood in terms of depression or anxiety. She reports hx of depression but states that it has been well controlled over the years. No SI/HI. She presents as future oriented. Her main concerns are physical: UTI, hemorroids, difficulty sleep (pending sleep study), radicular pain, SOB(was seen by pulmonology recently in 08/2023). PLAN 1. admit to s1, CV, 15 minutes checks for safety. 2. unclear if paxil is new prescription or not. if new may want to coonsider different antidepressant with less anticholinergic s/e. 3. consult to neurology for radicular pain 4. hydrocortizone 2.5% RP for hemorroids. 5. continue ceftin for UTI x 7 days 6. sleep study 7. attempted to call daughter to obtain collateral information: left VM with call back number 8. Aftercare planning. Reason for continued inpatient stay Substantial Risk for: inability to function, rapid decompensation and med/psych decompensation Time Spent With Patient Time: Total time managing care of this patient today __20__ minutes.
--- NOTE | 2023-10-29 15:39 | P.CNNE_ITS ---
History of Present Illness Data of Consult Service Date: 10/29/23 Primary Care Provider: Amanda Myers MD [facility] Reason for consult: Back pain 73 years old morbidly obese woman with back pain. She said that it was going on for about a year and it was going across but not in her legs. It was there old time and affecting her mobility. She also complained of bilateral knee pain. Review of Systems 2 Review of Systems: No history of trauma to her back or knees. [facility] Past Medical History Medical History Abuse of non-prescription analgesics Type 2 diabetes mellitus with unspecified complications Other and unspecified hyperlipidemia Essential hypertension Atherosclerotic cardiovascular disease Urgency incontinence Osteoporosis Arthritis Asthma Hypertension Fibromyalgia Diabetes mellitus Surgical History Surgical History History of hernia repair Social History Social History Household Members: Children Housing: Apartment Do you presently have visiting nurse or other home services: Yes Unable to assess alcohol history related to: Refusing to respond Alcohol intake: never 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 Patient Tobacco Use Status: Never used Tobacco Use of substances other than those prescribed or required for medical reasons: No Have you been hit, kicked, punched, or otherwise hurt by someone within the past year? If so, by whom?: No Do you feel safe in your current relationship?: Yes Is there a partner from a previous relationship who is making you feel unsafe now?: No Advance Directives: No Advance Directives Information Provided: No Do you have thoughts of harming others: None Do you have a plan to hurt others: No Plan Recently lost weight without trying: No Nutrition Risks: No Nutritional Risk Patient : No : No Poor oral hygiene: No service: No Sexual orientation: Straight/Heterosexual Meds Allergies Allergy/AdvReac Type Severity Reaction Status Date / Time codeine [CODEINE] Allergy Intermediate HALLUCINATI Verified 10/26/23 14:14 ONS Active Medications: Current Medications Acetaminophen (Acetaminophen 325 Mg Tablet) 650 mg PO Q6H PRN PRN Reason: Headache/Pain Mild Scale (1-3) Al Hydroxide/Mg Hydroxide (Magnesium Hydrox/Alum Hydrox 30 Ml Oral.Susp) 30 ml PO Q6H PRN PRN Reason: Heartburn/Nausea Amiodarone HCl (Amiodarone Hcl 200 Mg Tablet) 200 mg PO DAILY COUNT [facility]CLUDES [facility] Last Admin: 10/29/23 08:17 Dose: 200 mg Amlodipine Besylate (Amlodipine Besylate 10 Mg Tablet) 10 mg PO DAILY COUNT [facility]CLUD[facility]; Protocol Last Admin: 10/29/23 08:17 Dose: 10 mg Apixaban (Apixaban 5 Mg Tablet) 5 mg PO BID COUNT INCLUDES [facility] Last Admin: 10/29/23 08:17 Dose: 5 mg Aspirin (Aspirin Enteric Coated 81 Mg Tablet.Dr) 81 mg PO BEDTIME COUNT [facility]CLUDES [facility] Last Admin: 10/28/23 20:30 Dose: 81 mg Calcium Carbonate (Calcium Carbonate 500 Mg Tablet) 500 mg PO BID COUNT [facility]CLUDES [facility] Last Admin: 10/29/23 08:17 Dose: 500 mg Cefuroxime Axetil (Cefuroxime Axetil 250 Mg Tablet) 250 mg PO BID COUNT [facility]CLUDES [facility] Last Admin: 10/29/23 08:17 Dose: 250 mg Empagliflozin (Empagliflozin 10 Mg Tablet) 10 mg PO DAILY COUNT [facility]CLUDES [facility] Last Admin: 10/29/23 08:18 Dose: 10 mg Glipizide (Glipizide Xl 5 Mg Tab.Er.24) 5 mg PO DAILY COUNT [facility]CLUDES [facility] Last Admin: 10/29/23 08:17 Dose: 5 mg Hydrocortisone (Hydrocortisone 2.5 % Rectal Cr 30 Gm Tube) 1 appl [place] BEDTIME COUNT INCLUDES [facility] Last Admin: 10/28/23 22:56 Dose: Not Given Hydroxyzine HCl (Hydroxyzine Hcl 25 Mg Tablet) 25 mg PO Q8H PRN PRN Reason: anxiety Last Admin: 10/26/23 02:12 Dose: 25 mg Hydroxyzine HCl (Hydroxyzine Hcl 25 Mg Tablet) 25 mg PO Q6H PRN PRN Reason: Anxiety Insulin Glargine (Insulin Glargine,Hum.Rec.Anlog 100 Unit/Ml 10 Ml Vial) 65 unit SUBCUT BEDTIME COUNT INCLUDES [facility] Last Admin: 10/28/23 20:31 Dose: 65 unit Levothyroxine Sodium (Levothyroxine Sodium 25 Mcg Tablet) 25 mcg PO DAILY@0630 COUNT [facility] Last Admin: 10/29/23 06:26 Dose: 25 mcg Losartan Potassium (Losartan Potassium 50 Mg Tablet) 50 mg PO DAILY COUNT [facility]CLUDES [facility]; Protocol Last Admin: 03/22/24 08:17 Dose: 50 mg Magnesium Hydroxide (Milk Of Magnesia 30 Ml Oral.Susp) 30 ml PO DAILY PRN PRN Reason: Constipation Metoprolol Tartrate (Metoprolol Tartrate 50 Mg Tablet) 50 mg PO BID COUNT [facility]CLUDES [facility]; Protocol Last Admin: 10/29/23 08:17 Dose: 50 mg Oxycodone HCl (Oxycodone Hcl Immed Release 5 Mg Tablet) 10 mg PO QID PRN PRN Reason: Pain, Severe Last Admin: 10/29/23 03:20 Dose: 10 mg Paroxetine HCl (Paroxetine Hcl 40 Mg Tablet) 40 mg PO DAILY COUNT [facility]CLUDES [facility] Last Admin: 10/29/23 08:17 Dose: 40 mg Senna/Docusate Sodium (Sennosides/Docusate Sodium Tablet) 1 tab PO BID COUNT [facility]CLUDES [facility] Last Admin: 10/29/23 08:17 Dose: 1 tab Trazodone HCl (Trazodone Hcl 100 Mg Tablet) 100 mg PO BEDTIME COUNT [facility]CLUDES [facility] Last Admin: 10/28/23 20:30 Dose: 100 mg Trazodone HCl (Trazodone Hcl 50 Mg Tablet) 50 mg PO BEDTIME PRN PRN Reason: Insomnia Home Medications Medication Instructions Recorded Confirmed Last Taken Type calcium carbonate 500 mg calcium 1 tab PO BID 07/22/20 10/25/23 10/25/23 08:00 History (1,250 mg) tablet (Oyster Shell Calcium 500) glipizide 5 mg tablet, extended 1 tab PO QAM 07/22/20 10/26/23 10/25/23 08:00 History release 24 hr insulin glargine 100 unit/mL 65 unit subcut QPM 07/22/20 10/26/23 Unknown History subcutaneous solution (Lantus U-100 Insulin) amlodipine 10 mg tablet 10 mg PO DAILY 04/07/21 10/25/23 10/25/23 08:00 History atorvastatin 80 mg tablet 80 mg PO BEDTIME 04/07/21 10/25/23 10/24/23 20:00 History metformin 1,000 mg tablet 1,000 mg PO BID 04/07/21 10/26/23 10/25/23 08:00 History trazodone 150 mg tablet 100 mg PO BEDTIME 11/09/22 10/26/23 10/24/23 20:00 History aspirin 81 mg tablet,delayed 81 mg PO QPM 10/25/23 10/25/23 10/24/23 20:00 History release dapagliflozin propanediol 10 mg 10 mg PO QAM 10/25/23 10/25/23 10/25/23 08:00 History tablet (Farxiga) calcium 500 mg tablet 500 mg PO DAILY 10/26/23 10/26/23 Unknown History hydroxyzine HCl 25 mg tablet 25 mg PO Q8H PRN anxiety 10/26/23 10/26/23 Unknown History levothyroxine 25 mcg tablet 25 mcg PO DAILY 10/26/23 10/26/23 10/25/23 06:20 History losartan 50 mg tablet 50 mg PO QAM 10/26/23 10/26/23 10/25/23 08:00 History oxycodone-acetaminophen 10 mg-325 1 tab PO BID PRN Pain, Severe 10/26/23 10/26/23 Unknown History mg tablet paroxetine HCl 40 mg tablet 40 mg PO QAM 10/26/23 10/26/23 10/25/23 08:00 History Physical Exam 2 Vital Signs: Vital Signs: Last Vital Signs Temp 98.2 F 10/29/23 07:55 Pulse 62 10/29/23 07:55 Resp 20 10/29/23 07:55 BP 133/65 10/29/23 07:55 Pulse Ox 96 10/29/23 07:55 O2 Del Method Room Air 10/29/23 07:55 BMI result Body Mass Index 66.9 Neuro: Other: Significantly obese woman limiting her examination and mobility. With assistance she was able to stand and use restroom. A knee reflexes were good 2+ somewhat on the brisker side for her agent body mass with trace to absent ankle reflexes and flat plantars. Results Labs 10/25/23 21:31 10/28/23 08:03 Labs: Knee x-rays revealed significant osteoarthritis bilaterally Microbiology Microbiology Results: Microbiology 10/25/23 18:46 Urine clean catch - Urine costa top Urine Culture - Final Assessment and Plan (1) Chronic back pain: Qualifiers: Back pain location: low back pain Back pain laterality: bilateral S ciatica presence: without sciatica Qualified Code(s): M54.50 - Low back pain, unspecified; G89.29 - Other chronic pain Status: Acute 73 years old woman with chronic probably musculoskeletal low back pain. She was morbidly obese putting her at risk for number of pathologies of spine and I would not be surprised to see degenerative disc disease, spondylosis and associated foraminal and root compression or spinal stenosis. She did not describe any radicular type of symptoms to me but aside from that she also complain of bilateral knee pain which likely is from severe arthritis or osteoarthritis she has. Because of her age and body habitus, treatment is conservative for back pain. I did not notice any imaging or x-ray of her back in her previous records and suggest obtaining a noncontrast MRI or an CT scan of low back her lumbosacral spine for proper definition. Procedures Date of Service Date of Service: 10/29/23
--- NOTE | 2023-10-29 16:57 | P.PNPSI_ITS ---
Subjective Subjective Date of Service: 10/29/23 Reason For Visit: Psychosis Subjective Notes: Conditional Voluntary Interim History: Patient seen with the aid of parts representative the patient was calm and cooperative not overly agitated. Give history of 2 recent which he calls panic attacks where she was digging her fingers into her head. She states that is how she relieves anxiety related to panic she stated she did make a statement that she wished she were but denies plan or intent to harm herself. She seemed to have lack perspective regarding this. Patient is on 40 mg of Paxil she does take up to 40 mg of oxycodone daily she is on multiple antihypertensive Medication Compliance: Yes Mental Status Exam Mental Status Exam Patient Appearance: Appropriate Patient Orientation: Person, Place and Situation Level of Consciousness: Awake Patient Behavior: Cooperative Mood Description: Calm Affect Description: Calm and Constricted Patient Cognition Impaired: Yes Ability to Follow Directions: Good Speech Pattern: Clear Hallucinations: None Delusions: Not Present Thought Process: Distracted and Slowed Thinking Thought Content: positive for [place] and positive for Poverty of Content Judgement: Fair Judgement and Insight: Patient denied ongoing depressive symptoms frequent panic attacks or thoughts she would be better off. Can not really describe behavior prior to admission Diagnostics Vital Signs (24Hr): Vital Signs - 24 hr 10/28/23 18:00 10/29/23 07:55 Temperature 98 F 98.2 F Pulse Rate 57 62 Respiratory Rate 16 20 Blood Pressure 145/69 H 133/65 Pulse Oximetry 93 96 Oxygen Delivery Method Room Air Room Air BMI result Body Mass Index 66.9 Labs 10/25/23 21:31 10/28/23 08:03 Labs: Laboratory Results - last 48 hr 10/27/23 10/28/23 10/28/23 21:28 06:15 08:03 Sodium 142 Potassium 4.5 Chloride 101 Carbon Dioxide 31 H Anion Gap 15 BUN 22 H Creatinine 1.11 Estim Creat Clear Calc 39.7 Estimated GFR 48 POC Glucose 156 H 112 Fasting Glucose 120 H Estimat Average Glucose 131 Hemoglobin A1c % 6.2 H Calcium 9.6 D Total Bilirubin 0.2 AST 18 ALT 18 Alkaline Phosphatase 67 Total Protein 6.8 Albumin 3.4 L Triglycerides 358 H Cholesterol 132 LDL Cholesterol, Calc 34 HDL Cholesterol 27 L Vitamin B12 346 10/28/23 10/29/23 20:27 06:18 Sodium Potassium Chloride Carbon Dioxide Anion Gap BUN Creatinine Estim Creat Clear Calc Estimated GFR POC Glucose 136 H 106 Fasting Glucose Estimat Average Glucose Hemoglobin A1c % Calcium Total Bilirubin AST ALT Alkaline Phosphatase Total Protein Albumin Triglycerides Cholesterol LDL Cholesterol, Calc HDL Cholesterol Vitamin B12 Medications Medications Current Medications Acetaminophen (Acetaminophen 325 Mg Tablet) 650 mg PO Q6H PRN PRN Reason: Headache/Pain Mild Scale (1-3) Al Hydroxide/Mg Hydroxide (Magnesium Hydrox/Alum Hydrox 30 Ml Oral.Susp) 30 ml PO Q6H PRN PRN Reason: Heartburn/Nausea Amiodarone HCl (Amiodarone Hcl 200 Mg Tablet) 200 mg PO DAILY [facility] Last Admin: 10/29/23 08:17 Dose: 200 mg Amlodipine Besylate (Amlodipine Besylate 10 Mg Tablet) 10 mg PO DAILY [facility]; Protocol Last Admin: 10/29/23 08:17 Dose: 10 mg Apixaban (Apixaban 5 Mg Tablet) 5 mg PO BID [facility] Last Admin: 10/29/23 08:17 Dose: 5 mg Aspirin (Aspirin Enteric Coated 81 Mg Tablet.Dr) 81 mg PO BEDTIME [facility] Last Admin: 10/28/23 20:30 Dose: 81 mg Calcium Carbonate (Calcium Carbonate 500 Mg Tablet) 500 mg PO BID [facility] Last Admin: 10/29/23 08:17 Dose: 500 mg Cefuroxime Axetil (Cefuroxime Axetil 250 Mg Tablet) 250 mg PO BID [facility] Last Admin: 10/29/23 08:17 Dose: 250 mg Empagliflozin (Empagliflozin 10 Mg Tablet) 10 mg PO DAILY [facility] Last Admin: 10/29/23 08:18 Dose: 10 mg Glipizide (Glipizide Xl 5 Mg Tab.Er.24) 5 mg PO DAILY [facility] Last Admin: 10/29/23 08:17 Dose: 5 mg Hydrocortisone (Hydrocortisone 2.5 % Rectal Cr 30 Gm Tube) 1 appl [place] BEDTIME [facility] Last Admin: 10/28/23 22:56 Dose: Not Given Hydroxyzine HCl (Hydroxyzine Hcl 25 Mg Tablet) 25 mg PO Q8H PRN PRN Reason: anxiety Last Admin: 10/26/23 02:12 Dose: 25 mg Hydroxyzine HCl (Hydroxyzine Hcl 25 Mg Tablet) 25 mg PO Q6H PRN PRN Reason: Anxiety Insulin Glargine (Insulin Glargine,Hum.Rec.Anlog 100 Unit/Ml 10 Ml Vial) 65 unit SUBCUT BEDTIME [facility] Last Admin: 10/28/23 20:31 Dose: 65 unit Levothyroxine Sodium (Levothyroxine Sodium 25 Mcg Tablet) 25 mcg PO DAILY@0630 [facility] Last Admin: 10/29/23 06:26 Dose: 25 mcg Losartan Potassium (Losartan Potassium 50 Mg Tablet) 50 mg PO DAILY [facility]; Protocol Last Admin: 10/29/23 08:17 Dose: 50 mg Magnesium Hydroxide (Milk Of Magnesia 30 Ml Oral.Susp) 30 ml PO DAILY PRN PRN Reason: Constipation Metoprolol Tartrate (Metoprolol Tartrate 50 Mg Tablet) 50 mg PO BID [facility]; Protocol Last Admin: 10/29/23 08:17 Dose: 50 mg Oxycodone HCl (Oxycodone Hcl Immed Release 5 Mg Tablet) 10 mg PO QID PRN PRN Reason: Pain, Severe Last Admin: 10/29/23 15:54 Dose: 10 mg Paroxetine HCl (Paroxetine Hcl 40 Mg Tablet) 40 mg PO DAILY [facility] Last Admin: 10/29/23 08:17 Dose: 40 mg Senna/Docusate Sodium (Sennosides/Docusate Sodium Tablet) 1 tab PO BID [facility] Last Admin: 10/29/23 08:17 Dose: 1 tab Trazodone HCl (Trazodone Hcl 100 Mg Tablet) 100 mg PO BEDTIME [facility] Last Admin: 10/28/23 20:30 Dose: 100 mg Trazodone HCl (Trazodone Hcl 50 Mg Tablet) 50 mg PO BEDTIME PRN PRN Reason: Insomnia Allergies Allergies Allergy/AdvReac Type Severity Reaction Status Date / Time codeine [CODEINE] Allergy Intermediate HALLUCINATI Verified 10/26/23 14:14 ONS Assessment & Plan Assessment & Plan (1) MDD (major depressive disorder), recurrent episode, moderate: Status: Acute Code(s): F33.1 - Major depressive disorder, recurrent, moderate Plan Mrs. Head is a 73 year-old woman who was brought to [facility] by her son due to episode of bilat LE shakiness, pin and needles sensation, pressured on lower back, radiating pain more on right leg than left. She referred to these symptoms as panic attack however, these symptoms are more consistent with radicular pain. Otherwise, pt denies worsening of mood in terms of depression or anxiety. She reports hx of depression but states that it has been well controlled over the years. No SI/HI. She presents as future oriented. Her main concerns are physical: UTI, hemorroids, difficulty sleep (pending sleep study), radicular pain, SOB(was seen by pulmonology recently in 08/2023). PLAN 1. admit to s1, CV, 15 minutes checks for safety. 2. unclear if paxil is new prescription or not. if new may want to coonsider different antidepressant with less anticholinergic s/e. 3. consult to neurology for radicular pain 4. hydrocortizone 2.5% RP for hemorroids. 5. continue ceftin for UTI x 7 days 6. sleep study 7. attempted to call daughter to obtain collateral information: left VM with call back number 8. Aftercare planning. 10/29/2023 Continue Paxil consider low-dose lorazepam p.r.n. for panic attack encourage coping strategies understanding regarding panic trying clarify behavior prior to admission Reason for continued inpatient stay Substantial Risk for: harm to self, rapid decompensation and med/psych decompensation Time Spent With Patient Time: Total time managing care of this patient today ____ minutes.
[2023-10-29 18:00] VITALS: BP 167/74; PULSE 55; RESP 18; TEMP 35.9; O2SAT 98
[2023-10-29] MEDS: Insulin Glargine,Hum.rec.anlog 100 UNIT/ML 10 ML VIAL 65 UNIT SUBCUT (20:30)
[2023-10-29] MEDS: traZODone HCL 100 MG TABLET PO (20:30)
[2023-10-29] MEDS: Aspirin Enteric Coated 81 MG TABLET.DR PO (20:31)
[2023-10-29 20:50] LABS: Glucose, Whole Blood 186 mg/dL (60-115)
[2023-10-30] MEDS: Levothyroxine Sodium 25 MCG TABLET PO (05:31)
[2023-10-30 06:00] VITALS: BP 132/61; PULSE 60; RESP 18; TEMP 36.2; O2SAT 94
[2023-10-30 06:28] LABS: Glucose, Whole Blood 100 mg/dL (60-115)
[2023-10-30] MEDS: Sennosides/Docusate Sodium TABLET 1 TAB PO ×2 (09:10→19:58)
[2023-10-30] MEDS: Metoprolol Tartrate 50 MG TABLET PO ×2 (09:10→19:58)
[2023-10-30] MEDS: PARoxetine HCL 40 MG TABLET PO (09:10)
[2023-10-30] MEDS: Losartan Potassium 50 MG TABLET PO (09:10)
[2023-10-30] MEDS: amLODIPine Besylate 10 MG TABLET PO (09:10)
[2023-10-30] MEDS: glipiZIDE XL 5 MG TAB.ER.24 PO (09:10)
[2023-10-30] MEDS: cefuroxime axetiL 250 MG TABLET PO ×2 (09:10→19:58)
[2023-10-30] MEDS: Apixaban 5 MG TABLET PO ×2 (09:11→19:58)
[2023-10-30] MEDS: Empagliflozin 10 MG TABLET PO (09:11)
[2023-10-30] MEDS: Amiodarone HCL 200 MG TABLET PO (09:11)
--- NOTE | 2023-10-30 10:41 | P.PNPSI_ITS ---
Subjective Subjective Date of Service: 10/23/23 Reason For Visit: Psychosis Subjective Notes: Conditional Voluntary Interim History: Patient seems isolated depressed withdrawn seen with the aid of content architect. She does complain of fatigue mostly isolated Medication Compliance: Yes Mental Status Exam Mental Status Exam Patient Appearance: Fatigued Patient Orientation: Person, Place and Situation Level of Consciousness: Awake and Lethargic Patient Behavior: Cooperative Mood Description: Calm Affect Description: Constricted and Depressed Patient Cognition Impaired: Yes Ability to Follow Directions: Good Speech Pattern: Clear Hallucinations: None Delusions: Not Present Thought Process: Distracted and Slowed Thinking Thought Content: positive for [place] and positive for Poverty of Content Abnormal Motor Activity Signs and Symptoms: Psychomotor Retardation Judgement: Fair Diagnostics Vital Signs (24Hr): Vital Signs - 24 hr 10/29/23 18:00 10/30/23 06:00 Temperature 96.7 F L 97.2 F Pulse Rate 55 60 Respiratory Rate 18 18 Blood Pressure 167/74 H 132/61 Pulse Oximetry 98 94 Oxygen Delivery Method Room Air Room Air BMI result Body Mass Index 66.9 Labs 10/25/23 21:31 10/28/23 08:03 Labs: Laboratory Results - last 48 hr 10/28/23 10/29/23 10/29/23 20:27 06:18 20:29 POC Glucose 136 H 106 186 H 10/30/23 05:56 POC Glucose 100 Medications Medications Current Medications Acetaminophen (Acetaminophen 325 Mg Tablet) 650 mg PO Q6H PRN PRN Reason: Headache/Pain Mild Scale (1-3) Al Hydroxide/Mg Hydroxide (Magnesium Hydrox/Alum Hydrox 30 Ml Oral.Susp) 30 ml PO Q6H PRN PRN Reason: Heartburn/Nausea Amiodarone HCl (Amiodarone Hcl 200 Mg Tablet) 200 mg PO DAILY [facility] Last Admin: 10/30/23 09:11 Dose: 200 mg Amlodipine Besylate (Amlodipine Besylate 10 Mg Tablet) 10 mg PO DAILY [facility]; Protocol Last Admin: 10/30/23 09:10 Dose: 10 mg Apixaban (Apixaban 5 Mg Tablet) 5 mg PO BID [facility] Last Admin: 10/30/23 09:11 Dose: 5 mg Aspirin (Aspirin Enteric Coated 81 Mg Tablet.) 81 mg PO BEDTIME [facility] Last Admin: 10/29/23 20:31 Dose: 81 mg Calcium Carbonate (Calcium Carbonate 500 Mg Tablet) 500 mg PO BID [facility] Last Admin: 10/30/23 09:10 Dose: 500 mg Cefuroxime Axetil (Cefuroxime Axetil 250 Mg Tablet) 250 mg PO BID [facility] Last Admin: 10/30/23 09:10 Dose: 250 mg Empagliflozin (Empagliflozin 10 Mg Tablet) 10 mg PO DAILY [facility] Last Admin: 10/30/23 09:11 Dose: 10 mg Glipizide (Glipizide Xl 5 Mg Tab.Er.24) 5 mg PO DAILY [facility] Last Admin: 10/30/23 09:10 Dose: 5 mg Hydrocortisone (Hydrocortisone 2.5 % Rectal Cr 30 Gm Tube) 1 appl [place] BEDTIME [facility] Last Admin: 10/29/23 20:39 Dose: Not Given Hydroxyzine HCl (Hydroxyzine Hcl 25 Mg Tablet) 25 mg PO Q8H PRN PRN Reason: anxiety Last Admin: 10/26/23 02:12 Dose: 25 mg Hydroxyzine HCl (Hydroxyzine Hcl 25 Mg Tablet) 25 mg PO Q6H PRN PRN Reason: Anxiety Insulin Glargine (Insulin Glargine,Hum.Rec.Anlog 100 Unit/Ml 10 Ml Vial) 65 unit SUBCUT BEDTIME [facility] Last Admin: 10/29/23 20:30 Dose: 65 unit Levothyroxine Sodium (Levothyroxine Sodium 25 Mcg Tablet) 25 mcg PO DAILY@0630 [facility] Last Admin: 10/30/23 05:31 Dose: 25 mcg Losartan Potassium (Losartan Potassium 50 Mg Tablet) 50 mg PO DAILY [facility]; Protocol Last Admin: 10/30/23 09:10 Dose: 50 mg Magnesium Hydroxide (Milk Of Magnesia 30 Ml Oral.Susp) 30 ml PO DAILY PRN PRN Reason: Constipation Metoprolol Tartrate (Metoprolol Tartrate 50 Mg Tablet) 50 mg PO BID [facility]; Protocol Last Admin: 10/30/23 09:10 Dose: 50 mg Oxycodone HCl (Oxycodone Hcl Immed Release 5 Mg Tablet) 10 mg PO QID PRN PRN Reason: Pain, Severe Last Admin: 10/29/23 22:49 Dose: 10 mg Paroxetine HCl (Paroxetine Hcl 40 Mg Tablet) 40 mg PO DAILY [facility] Last Admin: 10/30/23 09:10 Dose: 40 mg Senna/Docusate Sodium (Sennosides/Docusate Sodium Tablet) 1 tab PO BID [facility] Last Admin: 10/30/23 09:10 Dose: 1 tab Trazodone HCl (Trazodone Hcl 100 Mg Tablet) 100 mg PO BEDTIME [facility] Last Admin: 10/29/23 20:30 Dose: 100 mg Trazodone HCl (Trazodone Hcl 50 Mg Tablet) 50 mg PO BEDTIME PRN PRN Reason: Insomnia Allergies Allergies Allergy/AdvReac Type Severity Reaction Status Date / Time codeine [CODEINE] Allergy Intermediate HALLUCINATI Verified 10/26/23 14:14 ONS Assessment & Plan Assessment & Plan (1) MDD (major depressive disorder), recurrent episode, moderate: Status: Acute Code(s): F33.1 - Major depressive disorder, recurrent, moderate Plan Mrs. Head is a 73 year-old woman who was brought to [facility] by her son due to episode of bilat LE shakiness, pin and needles sensation, pressured on lower back, radiating pain more on right leg than left. She referred to these symptoms as panic attack however, these symptoms are more consistent with radicular pain. Otherwise, pt denies worsening of mood in terms of depression or anxiety. She reports hx of depression but states that it has been well controlled over the years. No SI/HI. She presents as future oriented. Her main concerns are physical: UTI, hemorroids, difficulty sleep (pending sleep study), radicular pain, SOB(was seen by pulmonology recently in 08/2023). PLAN 1. admit to s1, CV, 15 minutes checks for safety. 2. unclear if paxil is new prescription or not. if new may want to coonsider different antidepressant with less anticholinergic s/e. 3. consult to neurology for radicular pain 4. hydrocortizone 2.5% RP for hemorroids. 5. continue ceftin for UTI x 7 days 6. sleep study 7. attempted to call daughter to obtain collateral information: left VM with call back number 8. Aftercare planning. 10/29/2023 Continue Paxil consider low-dose lorazepam p.r.n. for panic attack encourage coping strategies understanding regarding panic trying clarify behavior prior to admission 10/30/2023 Patient seems somewhat lethargic versus depression. She is normally taking care of at home by her family her daughter is S[employer]IOR ADMINISTRATIVE SERVICES OFFICER will get physical therapy consult will try decreasing oxycodone patient does seem overmedicated Reason for continued inpatient stay Substantial Risk for: inability to function, rapid decompensation and med/psych decompensation Time Spent With Patient Time: Total time managing care of this patient today ____ minutes.
[2023-10-30] MEDS: oxyCODONE HCl Immed Release 5 MG TABLET 10 MG PO (14:14)
[2023-10-30 19:35] LABS: Glucose, Whole Blood 212 mg/dL (60-115)
[2023-10-30 19:45] VITALS: BP 114/57; PULSE 55; RESP 18; TEMP 36.4; O2SAT 97
[2023-10-30] MEDS: traZODone HCL 100 MG TABLET PO (19:58)
[2023-10-30] MEDS: Aspirin Enteric Coated 81 MG TABLET.DR PO (19:58)
[2023-10-30] MEDS: Insulin Glargine,Hum.rec.anlog 100 UNIT/ML 10 ML VIAL 65 UNIT SUBCUT (19:59)
[2023-10-31] MEDS: oxyCODONE HCl Immed Release 5 MG TABLET PO ×3 (04:41→22:58)
[2023-10-31 04:47] LABS: Glucose, Whole Blood 81 mg/dL (60-115)
[2023-10-31] MEDS: Levothyroxine Sodium 25 MCG TABLET PO (05:19)
[2023-10-31 07:30] VITALS: BP 115/58; PULSE 57; RESP 18; TEMP 36.8; O2SAT 96
[2023-10-31] MEDS: Empagliflozin 10 MG TABLET PO (08:26)
[2023-10-31] MEDS: amLODIPine Besylate 10 MG TABLET PO (08:27)
[2023-10-31] MEDS: Apixaban 5 MG TABLET PO ×2 (08:27→20:07)
[2023-10-31] MEDS: glipiZIDE XL 5 MG TAB.ER.24 PO (08:27)
[2023-10-31] MEDS: cefuroxime axetiL 250 MG TABLET PO ×2 (08:27→20:07)
[2023-10-31] MEDS: Sennosides/Docusate Sodium TABLET 1 TAB PO ×2 (08:27→20:07)
[2023-10-31] MEDS: Metoprolol Tartrate 50 MG TABLET PO ×2 (08:27→20:07)
[2023-10-31] MEDS: PARoxetine HCL 40 MG TABLET PO (08:30)
[2023-10-31] MEDS: Losartan Potassium 50 MG TABLET PO (08:38)
[2023-10-31] MEDS: Amiodarone HCL 200 MG TABLET PO (08:38)
--- NOTE | 2023-10-31 10:31 | HO.PSYCHPN ---
Subjective Subjective Date of Service: 10/31/23 Reason For Visit: Psychosis Subjective Notes: Conditional Voluntary Interim History: Patient isolated lethargic oxycodone lowered to 5 mg encourage out of bed PT consult Withdrawn Medication Compliance: Yes Mental Status Exam Mental Status Exam Patient Appearance: Fatigued Patient Orientation: Person, Place and Situation Level of Consciousness: Awake and Lethargic Patient Behavior: Cooperative Mood Description: Calm Affect Description: Constricted and Depressed Patient Cognition Impaired: Yes Ability to Follow Directions: Good Speech Pattern: Clear Hallucinations: None Delusions: Not Present Thought Process: Distracted and Slowed Thinking Thought Content: positive for [place] and positive for Poverty of Content Abnormal Motor Activity Signs and Symptoms: Psychomotor Retardation Judgement: Fair Diagnostics Vital Signs (24Hr): Vital Signs - 24 hr 10/30/23 19:45 10/31/23 07:30 Temperature 97.5 F 98.2 F Pulse Rate 55 57 Respiratory Rate 18 18 Blood Pressure 114/57 L 115/58 L Pulse Oximetry 97 96 Oxygen Delivery Method Room Air Room Air BMI result Body Mass Index 66.9 Labs 10/25/23 21:31 10/28/23 08:03 Labs: Laboratory Results - last 48 hr 10/29/23 10/30/23 10/30/23 20:29 05:56 19:30 POC Glucose 186 H 100 212 H 10/31/23 04:43 POC Glucose 81 Medications Medications Current Medications Acetaminophen (Acetaminophen 325 Mg Tablet) 650 mg PO Q6H PRN PRN Reason: Headache/Pain Mild Scale (1-3) Al Hydroxide/Mg Hydroxide (Magnesium Hydrox/Alum Hydrox 30 Ml Oral.Susp) 30 ml PO Q6H PRN PRN Reason: Heartburn/Nausea Amiodarone HCl (Amiodarone Hcl 200 Mg Tablet) 200 mg PO DAILY [facility] Last Admin: 10/31/23 08:38 Dose: 200 mg Amlodipine Besylate (Amlodipine Besylate 10 Mg Tablet) 10 mg PO DAILY [facility]; Protocol Last Admin: 10/31/23 08:27 Dose: 10 mg Apixaban (Apixaban 5 Mg Tablet) 5 mg PO BID [facility] Last Admin: 10/31/23 08:27 Dose: 5 mg Aspirin (Aspirin Enteric Coated 81 Mg Tablet.) 81 mg PO BEDTIME [facility] Last Admin: 10/30/23 19:58 Dose: 81 mg Calcium Carbonate (Calcium Carbonate 500 Mg Tablet) 500 mg PO BID [facility] Last Admin: 10/31/23 08:27 Dose: 500 mg Cefuroxime Axetil (Cefuroxime Axetil 250 Mg Tablet) 250 mg PO BID [facility] Last Admin: 10/31/23 08:27 Dose: 250 mg Empagliflozin (Empagliflozin 10 Mg Tablet) 10 mg PO DAILY [facility] Last Admin: 10/31/23 08:26 Dose: 10 mg Glipizide (Glipizide Xl 5 Mg Tab.Er.24) 5 mg PO DAILY [facility] Last Admin: 10/31/23 08:27 Dose: 5 mg Hydrocortisone (Hydrocortisone 2.5 % Rectal Cr 30 Gm Tube) 1 appl HI BEDTIME [facility] Last Admin: 10/30/23 20:45 Dose: Not Given Hydroxyzine HCl (Hydroxyzine Hcl 25 Mg Tablet) 25 mg PO Q8H PRN PRN Reason: anxiety Last Admin: 10/26/23 02:12 Dose: 25 mg Hydroxyzine HCl (Hydroxyzine Hcl 25 Mg Tablet) 25 mg PO Q6H PRN PRN Reason: Anxiety Insulin Glargine (Insulin Glargine,Hum.Rec.Anlog 100 Unit/Ml 10 Ml Vial) 65 unit SUBCUT BEDTIME [facility] Last Admin: 10/30/23 19:59 Dose: 65 unit Levothyroxine Sodium (Levothyroxine Sodium 25 Mcg Tablet) 25 mcg PO DAILY@0630 [facility] Last Admin: 10/31/23 05:19 Dose: 25 mcg Losartan Potassium (Losartan Potassium 50 Mg Tablet) 50 mg PO DAILY [facility]; Protocol Last Admin: 10/31/23 08:38 Dose: 50 mg Magnesium Hydroxide (Milk Of Magnesia 30 Ml Oral.Susp) 30 ml PO DAILY PRN PRN Reason: Constipation Metoprolol Tartrate (Metoprolol Tartrate 50 Mg Tablet) 50 mg PO BID [facility]; Protocol Last Admin: 10/31/23 08:27 Dose: 50 mg Oxycodone HCl (Oxycodone Hcl Immed Release 5 Mg Tablet) 5 mg PO QID PRN PRN Reason: Pain, Severe Last Admin: 10/31/23 04:41 Dose: 5 mg Paroxetine HCl (Paroxetine Hcl 40 Mg Tablet) 40 mg PO DAILY [facility] Last Admin: 10/31/23 08:30 Dose: 40 mg Senna/Docusate Sodium (Sennosides/Docusate Sodium Tablet) 1 tab PO BID [facility] Last Admin: 10/31/23 08:27 Dose: 1 tab Trazodone HCl (Trazodone Hcl 100 Mg Tablet) 100 mg PO BEDTIME [facility] Last Admin: 10/30/23 19:58 Dose: 100 mg Trazodone HCl (Trazodone Hcl 50 Mg Tablet) 50 mg PO BEDTIME PRN PRN Reason: Insomnia Allergies Allergies Allergy/AdvReac Type Severity Reaction Status Date / Time codeine [CODEINE] Allergy Intermediate HALLUCINATI Verified 10/26/23 14:14 ONS Assessment & Plan Assessment & Plan (1) MDD (major depressive disorder), recurrent episode, moderate: Status: Acute Code(s): F33.1 - Major depressive disorder, recurrent, moderate Plan Mrs. Head is a 73 year-old woman who was brought to [facility] ED by her son due to episode of bilat LE shakiness, pin and needles sensation, pressured on lower back, radiating pain more on right leg than left. She referred to these symptoms as panic attack however, these symptoms are more consistent with radicular pain. Otherwise, pt denies worsening of mood in terms of depression or anxiety. She reports hx of depression but states that it has been well controlled over the years. No SI/HI. She presents as future oriented. Her main concerns are physical: UTI, hemorroids, difficulty sleep (pending sleep study), radicular pain, SOB(was seen by pulmonology recently in 08/2023). PLAN 1. admit to s1, CV, 15 minutes checks for safety. 2. unclear if paxil is new prescription or not. if new may want to coonsider different antidepressant with less anticholinergic s/e. 3. consult to neurology for radicular pain 4. hydrocortizone 2.5% RP for hemorroids. 5. continue ceftin for UTI x 7 days 6. sleep study 7. attempted to call daughter to obtain collateral information: left VM with call back number 8. Aftercare planning. 10/29/2023 Continue Paxil consider low-dose lorazepam p.r.n. for panic attack encourage coping strategies understanding regarding panic trying clarify behavior prior to admission 10/30/2023 Patient seems somewhat lethargic versus depression. She is normally taking care of at home by her family her daughter is MARKETING ACCOUNT EXECUTIVE will get physical therapy consult will try decreasing oxycodone patient does seem overmedicated 10/31/2019 Need to coordinate care with family unclear patient's baseline she is being treated for UTI lower oxycodone case too sedating and contributing to isolation lethargy Reason for continued inpatient stay Substantial Risk for: inability to function and rapid decompensation Time Spent With Patient Time: Total time managing care of this patient today ____ minutes.
[2023-10-31] MEDS: hydrOXYzine HCL 25 MG TABLET PO (18:57)
[2023-10-31 19:30] VITALS: BP 128/57; PULSE 52; RESP 19; TEMP 36.2; O2SAT 94
[2023-10-31 19:43] LABS: Glucose, Whole Blood 210 mg/dL (60-115)
[2023-10-31] MEDS: traZODone HCL 100 MG TABLET PO (20:07)
[2023-10-31] MEDS: Aspirin Enteric Coated 81 MG TABLET.DR PO (20:07)
[2023-10-31] MEDS: Insulin Glargine,Hum.rec.anlog 100 UNIT/ML 10 ML VIAL 65 UNIT SUBCUT (20:09)
[2023-11-01] MEDS: Levothyroxine Sodium 25 MCG TABLET PO (05:12)
[2023-11-01] MEDS: Acetaminophen 325 MG TABLET 650 MG PO (05:27)
[2023-11-01 05:42] LABS: Glucose, Whole Blood 94 mg/dL (60-115)
[2023-11-01 08:19] VITALS: BP 130/58; PULSE 51; RESP 17; TEMP 36.5; O2SAT 94
[2023-11-01] MEDS: glipiZIDE XL 5 MG TAB.ER.24 PO (08:21)
[2023-11-01] MEDS: cefuroxime axetiL 250 MG TABLET PO ×2 (08:21→21:42)
[2023-11-01] MEDS: amLODIPine Besylate 10 MG TABLET PO (08:21)
[2023-11-01] MEDS: Amiodarone HCL 200 MG TABLET PO (08:21)
[2023-11-01] MEDS: Sennosides/Docusate Sodium TABLET 1 TAB PO ×2 (08:21→21:42)
[2023-11-01] MEDS: Empagliflozin 10 MG TABLET PO (08:21)
[2023-11-01] MEDS: Losartan Potassium 50 MG TABLET PO (08:21)
[2023-11-01] MEDS: Apixaban 5 MG TABLET PO ×2 (08:21→21:42)
[2023-11-01] MEDS: PARoxetine HCL 40 MG TABLET PO (08:21)
[2023-11-01] MEDS: oxyCODONE HCl Immed Release 5 MG TABLET PO ×2 (08:26→21:46)
--- NOTE | 2023-11-01 09:11 | HO.PSYCHPN ---
Subjective Subjective Date of Service: 11/01/23 Reason For Visit: Psychosis Subjective Notes: Conditional Voluntary Interim History: MR lumbar ordered per neurology recommendation. Pt denies SI/HI. She denies depression and anxious mood. She reports intermittent back pain. She also reports feeling tired at times. Collateral information gathered from her daughter who denies safety concerns and verifies that back pain, shaking of lower back pain cause of visit to the ED which pt and fam were referring (incorrectly) as a panic attack. Provided update to daughter as well as education on physical and medical findings. Review of Systems Review of Systems No history of trauma to her back or knees. Yes all other systems are reviewed and are negative Mental Status Exam Mental Status Exam Narrative: Appearance: MO, good hygiene, in NAD Behavior: cooperative and friendly Psychomotor: no agitation or retardation noted Speech: clear, normal rate/rhythm/volume, spontaneous TP: linear TC:physical concerns, but mental health concerns Mood: good Affect: brightens SI: denies HI: denies VH/AH: none Delusions: none Insight/judgment: fair x 2. Memory/cog: alert, oriented x 3. pending MOCA/ACL. Diagnostics Vital Signs (24Hr): Vital Signs - 24 hr 10/31/23 19:30 11/01/23 08:19 Temperature 97.2 F 97.7 F Pulse Rate 52 51 Respiratory Rate 19 17 Blood Pressure 128/57 L 130/58 L Pulse Oximetry 94 94 Oxygen Delivery Method Room Air Room Air BMI result Body Mass Index 66.9 Labs 10/25/23 21:31 10/28/23 08:03 Labs: Laboratory Results - last 48 hr 10/30/23 10/31/23 10/31/23 19:30 04:43 19:37 POC Glucose 212 H 81 210 H 11/01/23 05:38 POC Glucose 94 Medications Medications Current Medications Acetaminophen (Acetaminophen 325 Mg Tablet) 650 mg PO Q6H PRN PRN Reason: Headache/Pain Mild Scale (1-3) Last Admin: 11/01/23 05:27 Dose: 650 mg Al Hydroxide/Mg Hydroxide (Magnesium Hydrox/Alum Hydrox 30 Ml Oral.Susp) 30 ml PO Q6H PRN PRN Reason: Heartburn/Nausea Amiodarone HCl (Amiodarone Hcl 200 Mg Tablet) 200 mg PO DAILY [facility] Last Admin: 11/01/23 08:21 Dose: 200 mg Amlodipine Besylate (Amlodipine Besylate 10 Mg Tablet) 10 mg PO DAILY [facility]; Protocol Last Admin: 11/01/23 08:21 Dose: 10 mg Apixaban (Apixaban 5 Mg Tablet) 5 mg PO BID [facility] Last Admin: 11/01/23 08:21 Dose: 5 mg Aspirin (Aspirin Enteric Coated 81 Mg Tablet.Dr) 81 mg PO BEDTIME [facility] Last Admin: 10/31/23 20:07 Dose: 81 mg Calcium Carbonate (Calcium Carbonate 500 Mg Tablet) 500 mg PO BID [facility] Last Admin: 11/01/23 08:21 Dose: 500 mg Cefuroxime Axetil (Cefuroxime Axetil 250 Mg Tablet) 250 mg PO BID [facility] Last Admin: 11/01/23 08:21 Dose: 250 mg Empagliflozin (Empagliflozin 10 Mg Tablet) 10 mg PO DAILY [facility] Last Admin: 11/01/23 08:21 Dose: 10 mg Glipizide (Glipizide Xl 5 Mg Tab.Er.24) 5 mg PO DAILY [facility] Last Admin: 11/01/23 08:21 Dose: 5 mg Hydrocortisone (Hydrocortisone 2.5 % Rectal Cr 30 Gm Tube) 1 appl ME BEDTIME [facility] Last Admin: 10/31/23 20:51 Dose: Not Given Hydroxyzine HCl (Hydroxyzine Hcl 25 Mg Tablet) 25 mg PO Q8H PRN PRN Reason: anxiety Last Admin: 10/26/23 02:12 Dose: 25 mg Hydroxyzine HCl (Hydroxyzine Hcl 25 Mg Tablet) 25 mg PO Q6H PRN PRN Reason: Anxiety Last Admin: 10/31/23 18:57 Dose: 25 mg Insulin Glargine (Insulin Glargine,Hum.Rec.Anlog 100 Unit/Ml 10 Ml Vial) 65 unit SUBCUT BEDTIME [facility] Last Admin: 10/31/23 20:09 Dose: 65 unit Levothyroxine Sodium (Levothyroxine Sodium 25 Mcg Tablet) 25 mcg PO DAILY@0630 [facility] Last Admin: 11/01/23 05:12 Dose: 25 mcg Losartan Potassium (Losartan Potassium 50 Mg Tablet) 50 mg PO DAILY [facility]; Protocol Last Admin: 11/01/23 08:21 Dose: 50 mg Magnesium Hydroxide (Milk Of Magnesia 30 Ml Oral.Susp) 30 ml PO DAILY PRN PRN Reason: Constipation Metoprolol Tartrate (Metoprolol Tartrate 50 Mg Tablet) 50 mg PO BID [facility]; Protocol Last Admin: 11/01/23 08:24 Dose: Not Given Oxycodone HCl (Oxycodone Hcl Immed Release 5 Mg Tablet) 5 mg PO QID PRN PRN Reason: Pain, Severe Last Admin: 11/01/23 08:26 Dose: 5 mg Paroxetine HCl (Paroxetine Hcl 40 Mg Tablet) 40 mg PO DAILY [facility] Last Admin: 11/01/23 08:21 Dose: 40 mg Senna/Docusate Sodium (Sennosides/Docusate Sodium Tablet) 1 tab PO BID [facility] Last Admin: 11/01/23 08:21 Dose: 1 tab Trazodone HCl (Trazodone Hcl 100 Mg Tablet) 100 mg PO BEDTIME [facility] Last Admin: 10/31/23 20:07 Dose: 100 mg Trazodone HCl (Trazodone Hcl 50 Mg Tablet) 50 mg PO BEDTIME PRN PRN Reason: Insomnia Allergies Allergies Allergy/AdvReac Type Severity Reaction Status Date / Time codeine [CODEINE] Allergy Intermediate HALLUCINATI Verified 10/26/23 14:14 ONS Assessment & Plan Assessment & Plan (1) MDD (major depressive disorder), recurrent episode, moderate: Status: Acute Code(s): F33.1 - Major depressive disorder, recurrent, moderate Plan Mrs. Head is a 73 year-old woman who was brought to [facility] ED by her son due to episode of bilat LE shakiness, pin and needles sensation, pressured on lower back, radiating pain more on right leg than left. She referred to these symptoms as panic attack however, these symptoms are more consistent with radicular pain. Otherwise, pt denies worsening of mood in terms of depression or anxiety. She reports hx of depression but states that it has been well controlled over the years. No SI/HI. She presents as future oriented. Her main concerns are physical: UTI, hemorroids, difficulty sleep (pending sleep study), radicular pain, SOB(was seen by pulmonology recently in 08/2023). PLAN 1. admit to s1, CV, 15 minutes checks for safety. 2. unclear if paxil is new prescription or not. if new may want to coonsider different antidepressant with less anticholinergic s/e. 3. consult to neurology for radicular pain 4. hydrocortizone 2.5% RP for hemorroids. 5. continue ceftin for UTI x 7 days 6. sleep study 7. attempted to call daughter to obtain collateral information: left VM with call back number 8. Aftercare planning. 10/29/2023 Continue Paxil consider low-dose lorazepam p.r.n. for panic attack encourage coping strategies understanding regarding panic trying clarify behavior prior to admission 10/30/2023 Patient seems somewhat lethargic versus depression. She is normally taking care of at home by her family her daughter is MICROCOMPUTER SUPPORT SPECIALIST will get physical therapy consult will try decreasing oxycodone patient does seem overmedicated 10/31/2019 Need to coordinate care with family unclear patient's baseline she is being treated for UTI lower oxycodone case too sedating and contributing to isolation lethargy 10/31- awaiting results of Lumbar MRI and recommendation for tx by neurology. Reason for continued inpatient stay Substantial Risk for: inability to function Time Spent With Patient Time: Total time managing care of this patient today ____ minutes.
[2023-11-01 14:10] VITALS: PULSE 62; O2SAT 91
[2023-11-01] MEDS: hydrOXYzine HCL 25 MG TABLET PO (19:52)
[2023-11-01 20:46] LABS: Glucose, Whole Blood 190 mg/dL (60-115)
[2023-11-01] MEDS: traZODone HCL 100 MG TABLET PO (21:41)
[2023-11-01] MEDS: Aspirin Enteric Coated 81 MG TABLET.DR PO (21:42)
[2023-11-01] MEDS: Insulin Glargine,Hum.rec.anlog 100 UNIT/ML 10 ML VIAL 65 UNIT SUBCUT (21:43)
[2023-11-01 21:50] VITALS: BP 134/63; PULSE 54; RESP 18
--- NOTE | 2023-11-01 22:17 | PC.NURSE ---
Mary Lou given Oxycodone PO prn for bilateral knee pain 04/18
[2023-11-01] MEDS: traZODone HCL 50 MG TABLET PO (23:38)
[2023-11-02] MEDS: Levothyroxine Sodium 25 MCG TABLET PO (05:32)
[2023-11-02] MEDS: oxyCODONE HCl Immed Release 5 MG TABLET PO ×3 (05:32→20:30)
[2023-11-02 05:51] LABS: Glucose, Whole Blood 112 mg/dL (60-115)
[2023-11-02] MEDS: hydrOXYzine HCL 25 MG TABLET PO ×2 (06:34→20:32)
[2023-11-02 07:50] VITALS: BP 142/67; PULSE 62; RESP 18; TEMP 36.3; O2SAT 95
[2023-11-02] MEDS: Losartan Potassium 50 MG TABLET PO (08:15)
[2023-11-02] MEDS: Amiodarone HCL 200 MG TABLET PO (08:15)
[2023-11-02] MEDS: Apixaban 5 MG TABLET PO ×2 (08:15→20:31)
[2023-11-02] MEDS: PARoxetine HCL 40 MG TABLET PO (08:15)
[2023-11-02] MEDS: Empagliflozin 10 MG TABLET PO (08:15)
[2023-11-02] MEDS: glipiZIDE XL 5 MG TAB.ER.24 PO (08:15)
[2023-11-02] MEDS: amLODIPine Besylate 10 MG TABLET PO (08:15)
[2023-11-02] MEDS: cefuroxime axetiL 250 MG TABLET PO ×2 (08:15→20:31)
[2023-11-02] MEDS: Sennosides/Docusate Sodium TABLET 1 TAB PO ×2 (08:16→20:31)
[2023-11-02] MEDS: Metoprolol Tartrate 50 MG TABLET PO (08:16)
[2023-11-02 18:00] VITALS: BP 131/59; PULSE 54; RESP 18; TEMP 36.4; O2SAT 93
--- NOTE | 2023-11-02 19:13 | HO.PSYCHPN ---
Subjective Subjective Date of Service: 11/02/23 Reason For Visit: Psychosis Subjective Notes: Conditional Voluntary Interim History: Pt slept most of the night. Pt denies SI/HI. She also denies depression. No behavioral concerns. plan for dc tomorrow. Review of Systems Review of Systems No history of trauma to her back or knees. Yes all other systems are reviewed and are negative Mental Status Exam Mental Status Exam Narrative: Appearance: MO, good hygiene, in NAD Behavior: cooperative and friendly Psychomotor: no agitation or retardation noted Speech: clear, normal rate/rhythm/volume, spontaneous TP: linear TC:physical concerns, but mental health concerns Mood: good Affect: brightens SI: denies HI: denies VH/AH: none Delusions: none Insight/judgment: fair x 2. Memory/cog: alert, oriented x 3. pending MOCA/ACL. Diagnostics Vital Signs (24Hr): Vital Signs - 24 hr 11/01/23 21:50 11/02/23 07:50 Temperature 97.3 F Pulse Rate 54 62 Respiratory Rate 18 18 Blood Pressure 134/63 142/67 H Pulse Oximetry 95 Oxygen Delivery Method Room Air BMI result Body Mass Index 66.9 Labs 10/25/23 21:31 10/28/23 08:03 Labs: Laboratory Results - last 48 hr 10/31/23 11/01/23 11/01/23 19:37 05:38 20:29 POC Glucose 210 H 94 190 H 11/02/23 05:36 POC Glucose 112 Imaging Radiology Impressions: ITS Impressions Lumbar Spine MRI 11/01/23 12:06 IMPRESSION: 1. Moderate multilevel lumbar spondylosis and rightward spinal curvature. 2. Severe loss of disc height and chronic disc desiccation at the T12-L1 level with a small left subarticular to left lateral recess disc extrusion abutting the left T12 nerve root. 3. Small central disc protrusion and mild posterior subluxation at the L3-L4 level with bulging disc mildly distorting the exiting L3 nerve roots. 4. Mild anterolisthesis and moderate facet arthropathy at the L4-L5 level with moderate central canal stenosis. Bulging disc mildly distorts the exiting left L4 nerve root. 5. Left foraminal disc protrusion at the L5-S1 level mildly distorting the left L5 nerve root with [id number] foraminal encroachment. 6. Enlarged fibroid uterus. Medications Medications Current Medications Acetaminophen (Acetaminophen 325 Mg Tablet) 650 mg PO Q6H PRN PRN Reason: Headache/Pain Mild Scale (1-3) Last Admin: 11/01/23 05:27 Dose: 650 mg Al Hydroxide/Mg Hydroxide (Magnesium Hydrox/Alum Hydrox 30 Ml Oral.Susp) 30 ml PO Q6H PRN PRN Reason: Heartburn/Nausea Amiodarone HCl (Amiodarone Hcl 200 Mg Tablet) 200 mg PO DAILY [facility] Last Admin: 11/02/23 08:15 Dose: 200 mg Amlodipine Besylate (Amlodipine Besylate 10 Mg Tablet) 10 mg PO DAILY [facility]; Protocol Last Admin: 11/02/23 08:15 Dose: 10 mg Apixaban (Apixaban 5 Mg Tablet) 5 mg PO BID [facility] Last Admin: 11/02/23 08:15 Dose: 5 mg Aspirin (Aspirin Enteric Coated 81 Mg Tablet.Dr) 81 mg PO BEDTIME [facility] Last Admin: 11/01/23 21:42 Dose: 81 mg Calcium Carbonate (Calcium Carbonate 500 Mg Tablet) 500 mg PO BID [facility] Last Admin: 11/02/23 08:15 Dose: 500 mg Cefuroxime Axetil (Cefuroxime Axetil 250 Mg Tablet) 250 mg PO BID [facility] Last Admin: 11/02/23 08:15 Dose: 250 mg Empagliflozin (Empagliflozin 10 Mg Tablet) 10 mg PO DAILY [facility] Last Admin: 11/02/23 08:15 Dose: 10 mg Glipizide (Glipizide Xl 5 Mg Tab.Er.24) 5 mg PO DAILY [facility] Last Admin: 11/02/23 08:15 Dose: 5 mg Hydrocortisone (Hydrocortisone 2.5 % Rectal Cr 30 Gm Tube) 1 appl OR BEDTIME [facility] Last Admin: 11/01/23 22:10 Dose: Not Given Hydroxyzine HCl (Hydroxyzine Hcl 25 Mg Tablet) 25 mg PO Q8H PRN PRN Reason: anxiety Last Admin: 11/02/23 06:34 Dose: 25 mg Hydroxyzine HCl (Hydroxyzine Hcl 25 Mg Tablet) 25 mg PO Q6H PRN PRN Reason: Anxiety Last Admin: 10/31/23 18:57 Dose: 25 mg Insulin Glargine (Insulin Glargine,Hum.Rec.Anlog 100 Unit/Ml 10 Ml Vial) 65 unit SUBCUT BEDTIME [facility] Last Admin: 11/01/23 21:43 Dose: 65 unit Levothyroxine Sodium (Levothyroxine Sodium 25 Mcg Tablet) 25 mcg PO DAILY@0630 [facility] Last Admin: 11/02/23 05:32 Dose: 25 mcg Losartan Potassium (Losartan Potassium 50 Mg Tablet) 50 mg PO DAILY [facility]; Protocol Last Admin: 11/02/23 08:15 Dose: 50 mg Magnesium Hydroxide (Milk Of Magnesia 30 Ml Oral.Susp) 30 ml PO DAILY PRN PRN Reason: Constipation Metoprolol Tartrate (Metoprolol Tartrate 50 Mg Tablet) 50 mg PO BID [facility]; Protocol Last Admin: 11/02/23 08:16 Dose: 50 mg Oxycodone HCl (Oxycodone Hcl Immed Release 5 Mg Tablet) 5 mg PO QID PRN PRN Reason: Pain, Severe Last Admin: 11/02/23 11:00 Dose: 5 mg Paroxetine HCl (Paroxetine Hcl 40 Mg Tablet) 40 mg PO DAILY [facility] Last Admin: 11/02/23 08:15 Dose: 40 mg Senna/Docusate Sodium (Sennosides/Docusate Sodium Tablet) 1 tab PO BID [facility] Last Admin: 11/02/23 08:16 Dose: 1 tab Trazodone HCl (Trazodone Hcl 100 Mg Tablet) 100 mg PO BEDTIME [facility] Last Admin: 11/01/23 21:41 Dose: 100 mg Trazodone HCl (Trazodone Hcl 50 Mg Tablet) 50 mg PO BEDTIME PRN PRN Reason: Insomnia Last Admin: 11/01/23 23:38 Dose: 50 mg Allergies Allergies Allergy/AdvReac Type Severity Reaction Status Date / Time codeine [CODEINE] Allergy Intermediate HALLUCINATI Verified 10/26/23 14:14 ONS Assessment & Plan Assessment & Plan (1) MDD (major depressive disorder), recurrent episode, moderate: Status: Acute Code(s): F33.1 - Major depressive disorder, recurrent, moderate Plan Mrs. Head is a 73 year-old woman who was brought to [facility] ED by her son due to episode of bilat LE shakiness, pin and needles sensation, pressured on lower back, radiating pain more on right leg than left. She referred to these symptoms as panic attack however, these symptoms are more consistent with radicular pain. Otherwise, pt denies worsening of mood in terms of depression or anxiety. She reports hx of depression but states that it has been well controlled over the years. No SI/HI. She presents as future oriented. Her main concerns are physical: UTI, hemorroids, difficulty sleep (pending sleep study), radicular pain, SOB(was seen by pulmonology recently in 08/2023). PLAN 1. admit to s1, CV, 15 minutes checks for safety. 2. unclear if paxil is new prescription or not. if new may want to coonsider different antidepressant with less anticholinergic s/e. 3. consult to neurology for radicular pain 4. hydrocortizone 2.5% RP for hemorroids. 5. continue ceftin for UTI x 7 days 6. sleep study 7. attempted to call daughter to obtain collateral information: left VM with call back number 8. Aftercare planning. 10/29/2023 Continue Paxil consider low-dose lorazepam p.r.n. for panic attack encourage coping strategies understanding regarding panic trying clarify behavior prior to admission 10/30/2023 Patient seems somewhat lethargic versus depression. She is normally taking care of at home by her family her daughter is RAIL DOWELING MACHINE OPERATOR will get physical therapy consult will try decreasing oxycodone patient does seem overmedicated 10/31/2019 Need to coordinate care with family unclear patient's baseline she is being treated for UTI lower oxycodone case too sedating and contributing to isolation lethargy 11/01 continue tx. Reason for continued inpatient stay Substantial Risk for: inability to function Time Spent With Patient Time: Total time managing care of this patient today ____ minutes.
[2023-11-02] MEDS: traZODone HCL 100 MG TABLET PO (20:31)
[2023-11-02] MEDS: Aspirin Enteric Coated 81 MG TABLET.DR PO (20:31)
[2023-11-02] MEDS: Insulin Glargine,Hum.rec.anlog 100 UNIT/ML 10 ML VIAL 65 UNIT SUBCUT (20:32)
[2023-11-03] MEDS: Levothyroxine Sodium 25 MCG TABLET PO (06:29)
[2023-11-03 06:58] LABS: Glucose, Whole Blood 105 mg/dL (60-115)
[2023-11-03 06:58] LABS: Glucose, Whole Blood 65 mg/dL (60-115)
[2023-11-03 07:50] VITALS: BP 156/69; PULSE 56; RESP 18; TEMP 36.3; O2SAT 94
[2023-11-03] MEDS: Sennosides/Docusate Sodium TABLET 1 TAB PO (08:27)
[2023-11-03] MEDS: PARoxetine HCL 40 MG TABLET PO (08:28)
[2023-11-03] MEDS: Empagliflozin 10 MG TABLET PO (08:28)
[2023-11-03] MEDS: Metoprolol Tartrate 50 MG TABLET PO (08:28)
[2023-11-03] MEDS: Amiodarone HCL 200 MG TABLET PO (08:28)
[2023-11-03] MEDS: cefuroxime axetiL 250 MG TABLET PO (08:28)
[2023-11-03] MEDS: Losartan Potassium 50 MG TABLET PO (08:28)
[2023-11-03] MEDS: glipiZIDE XL 5 MG TAB.ER.24 PO (08:28)
[2023-11-03] MEDS: amLODIPine Besylate 10 MG TABLET PO (08:28)
[2023-11-03] MEDS: Apixaban 5 MG TABLET PO (08:28)
--- NOTE | 2023-11-03 09:28 | P.DS_ITS ---
DS: Providers Provider Date of Service: 11/03/23 Date of admission: 10/27/23 13:09 Date of discharge: 11/03/23 Primary care physician: Amanda Myers MD Consults: 10/28/23 11:38 Consult to Neurology Routine Consulting Provider: [facility] Reason for consultation: worsening radicular pain Has provider been notified: Yes DS: Diagnosis Discharge Diagnosis (1) MDD (major depressive disorder), recurrent episode, moderate: Status: Acute DS: Medications Discharge Medications Home Medications: Home Medications Medication Instructions Recorded Confirmed calcium carbonate 500 mg calcium 1 tab PO BID 07/22/20 10/25/23 (1,250 mg) tablet (Oyster Shell Calcium 500) glipizide 5 mg tablet, extended 1 tab PO QAM 07/22/20 10/26/23 release 24 hr insulin glargine 100 unit/mL 65 unit subcut QPM 07/22/20 10/26/23 subcutaneous solution (Lantus U-100 Insulin) amlodipine 10 mg tablet 10 mg PO DAILY 04/07/21 10/25/23 atorvastatin 80 mg tablet 80 mg PO BEDTIME 04/07/21 10/25/23 metformin 1,000 mg tablet 1,000 mg PO BID 04/07/21 10/26/23 dapagliflozin propanediol 10 mg 10 mg PO QAM 10/25/23 10/25/23 tablet (Farxiga) levothyroxine 25 mcg tablet 25 mcg PO DAILY 10/26/23 10/26/23 Previous Rx's Medication Instructions Recorded amiodarone 200 mg tablet 200 mg PO DAILY #90 tabs 08/16/23 apixaban 5 mg tablet (Eliquis) 5 mg PO BID #60 tabs 11/03/23 aspirin 81 mg tablet,delayed 81 mg PO BEDTIME #30 tabs 11/03/23 release losartan 50 mg tablet 50 mg PO DAILY #0 tabs 11/03/23 metoprolol tartrate 50 mg tablet 50 mg PO BID #0 tabs 11/03/23 oxycodone 5 mg tablet 5 mg PO QID PRN Pain, Severe #0 11/03/23 tabs paroxetine HCl 40 mg tablet 40 mg PO DAILY #30 tabs 11/03/23 sennosides 8.6 mg-docusate sodium 1 tab PO BID #60 tabs 11/03/23 50 mg tablet (Senna Plus) trazodone 100 mg tablet 100 mg PO BEDTIME #30 tabs 11/03/23 Mental Status Exam Mental Status Exam Narrative: Appearance: MO, good hygiene, in NAD Behavior: cooperative and friendly Psychomotor: no agitation or retardation noted Speech: clear, normal rate/rhythm/volume, spontaneous TP: linear TC:physical concerns, but mental health concerns Mood: good Affect: brightens SI: denies HI: denies VH/AH: none Delusions: none Insight/judgment: fair x 2. Memory/cog: alert, oriented x 3. Data Data Completed and Pending Completed studies during hospitalization [Text1]: 10/27/23 10/27/23 10/28/23 12:26 21:28 06:15 Sodium Potassium Chloride Carbon Dioxide Anion Gap BUN Creatinine Estim Creat Clear Calc Estimated GFR POC Glucose 156 H 156 H 112 Fasting Glucose Estimat Average Glucose Hemoglobin A1c % Calcium Total Bilirubin AST ALT Alkaline Phosphatase Total Protein Albumin Triglycerides Cholesterol LDL Cholesterol, Calc HDL Cholesterol Vitamin B12 10/28/23 10/28/23 10/29/23 08:03 20:27 06:18 Sodium 142 Potassium 4.5 Chloride 101 Carbon Dioxide 31 H Anion Gap 15 BUN 22 H Creatinine 1.11 Estim Creat Clear Calc 39.7 Estimated GFR 48 POC Glucose 136 H 106 Fasting Glucose 120 H Estimat Average Glucose 131 Hemoglobin A1c % 6.2 H Calcium 9.6 D Total Bilirubin 0.2 AST 18 ALT 18 Alkaline Phosphatase 67 Total Protein 6.8 Albumin 3.4 L Triglycerides 358 H Cholesterol 132 LDL Cholesterol, Calc 34 HDL Cholesterol 27 L Vitamin B12 346 10/29/23 10/30/23 10/30/23 20:29 05:56 19:30 Sodium Potassium Chloride Carbon Dioxide Anion Gap BUN Creatinine Estim Creat Clear Calc Estimated GFR POC Glucose 186 H 100 212 H Fasting Glucose Estimat Average Glucose Hemoglobin A1c % Calcium Total Bilirubin AST ALT Alkaline Phosphatase Total Protein Albumin Triglycerides Cholesterol LDL Cholesterol, Calc HDL Cholesterol Vitamin B12 10/31/23 10/31/23 11/01/23 04:43 19:37 05:38 Sodium Potassium Chloride Carbon Dioxide Anion Gap BUN Creatinine Estim Creat Clear Calc Estimated GFR POC Glucose 81 210 H 94 Fasting Glucose Estimat Average Glucose Hemoglobin A1c % Calcium Total Bilirubin AST ALT Alkaline Phosphatase Total Protein Albumin Triglycerides Cholesterol LDL Cholesterol, Calc HDL Cholesterol Vitamin B12 03/11/02/23 11/03/23 20:29 05:36 06:28 Sodium Potassium Chloride Carbon Dioxide Anion Gap BUN Creatinine Estim Creat Clear Calc Estimated GFR POC Glucose 190 H 112 65 Fasting Glucose Estimat Average Glucose Hemoglobin A1c % Calcium Total Bilirubin AST ALT Alkaline Phosphatase Total Protein Albumin Triglycerides Cholesterol LDL Cholesterol, Calc HDL Cholesterol Vitamin B12 11/03/23 06:53 Sodium Potassium Chloride Carbon Dioxide Anion Gap BUN Creatinine Estim Creat Clear Calc Estimated GFR POC Glucose 105 Fasting Glucose Estimat Average Glucose Hemoglobin A1c % Calcium Total Bilirubin AST ALT Alkaline Phosphatase Total Protein Albumin Triglycerides Cholesterol LDL Cholesterol, Calc HDL Cholesterol Vitamin B12 10/25/23 18:46 Urine clean catch - Urine costa top Urine Culture - Final Imaging Diagnostic Imaging Impressions Lumbar Spine MRI 11/01/23 12:06 IMPRESSION: 1. Moderate multilevel lumbar spondylosis and rightward spinal curvature. 2. Severe loss of disc height and chronic disc desiccation at the T12-L1 level with a small left subarticular to left lateral recess disc extrusion abutting the left T12 nerve root. 3. Small central disc protrusion and mild posterior subluxation at the L3-L4 level with bulging disc mildly distorting the exiting L3 nerve roots. 4. Mild anterolisthesis and moderate facet arthropathy at the L4-L5 level with moderate central canal stenosis. Bulging disc mildly distorts the exiting left L4 nerve root. 5. Left foraminal disc protrusion at the L5-S1 level mildly distorting the left L5 nerve root with [id number] foraminal encroachment. 6. Enlarged fibroid uterus. DS: Summary Hospital Course Hospital Course: Mrs. Head is a 73 year-old womna who was brought to [facility] ED by her son due to what she referred to as panic attack. Daughter had also reported to repairer and checker that pt had expressed suicidal ideation. On the unit, pt presents as cooperative. She states she had episode were bilat LE were shaking, she felt pins and needles down her legs, more so on right on. She felt pressured on lower back pain. She reports she was worried about these symptoms and asked her son to bring her to the hospital. She reports these symptoms have been intermittent for the past few months.She adamantly denies reporting suicidal ideation. She reports she is a faithful woman and based on her spiritual believes she would never hurt herself or others. Furthermore, she denies feeling depressed or anxious. She denies worsening of her mood recently. She reports she has hx of depression several years ago but not recently. Her main concern appear to be mainly physical. She describes buring when urinating. UA suggestive of UTI and she was started on ceftin 250mg po BID x 7 days. She also reports hemorroids and constipation. She denies hx of visual or auditory hallucinations. No prior psychiatric admission. She denies hx of suicide attempts. Past Psychiatric History: Inpt: none OP: used to see therapist at [facility] Past medication trials: paxil HOSPITAL COURSE On the unit, pt was admitted on a CV and placed on 15 minutes checks for safety. Pt presented with mostly physical symptoms including radicular pain, difficulty sleeping which seem secondary to ANILA. She presented as future oriented, hopeful. She denied suicidal or homicidal ideation throughout this admission. She did no show any signs of psychosis or delusions. She was visible on the unit and social with select peers. We discussed risks, benefits and alternative treatment options, she was continued on paxil 40mg po daily for depression. She completed course of ceftin for UTI. Collateral information gathered from her daughter who denies any safety concerns in terms of suicidal or homicidal ideation. She also agreed with Mary Lou's report that her mood has improved over the year but medical conditions taking a toll on her ability to function. There were no incidents of disruptive behaviors nor need for restraints. Pt had a sleep study while on the unit which showed signs and symptoms of ANILA, and based on recent study would benefit from Auto CPAP 6-20 to improve ANILA related symptoms. Pt was also seen by neurology for Radicular pain and recommended imaging Lumbar MRI w/o contrast as there has not bee any imaging. Copy of this discharge summary faxed to her PCP. Followed by phone call by this typewriter aligner. Results of Lumbar MR as described below: MR/MR lumbar spine wo con IMPRESSION: 1. Moderate multilevel lumbar spondylosis and rightward spinal curvature. 2. Severe loss of disc height and chronic disc desiccation at the T12-L1 level with a small left subarticular to left lateral recess disc extrusion abutting the left T12 nerve root. 3. Small central disc protrusion and mild posterior subluxation at the L3-L4 level with bulging disc mildly distorting the exiting L3 nerve roots. 4. Mild anterolisthesis and moderate facet arthropathy at the L4-L5 level with moderate central canal stenosis. Bulging disc mildly distorts the exiting left L4 nerve root. 5. Left foraminal disc protrusion at the L5-S1 level mildly distorting the left L5 nerve root with [id number] foraminal encroachment. 6. Enlarged fibroid uterus. Time Spent with Patient Time attestation: Total time managing care of this patient today ____ minutes. Discharge Plan Discharge Anticipated Discharge Date/Time: 11/03/23 09:12 Patient Disposition: Home, Self-Care Discharge Diagnosis: MDD Referrals: [facility] (Therapy) [Other] - 1 Week (Patient referred for outpatient therapy through [facility] ) Amanda Watkins MD [Primary Care Provider] - 11/11/23 9:30 am (Follow up appoint has been scheduled for 11/11/23 at 9:30am. ) Discharge Medications: New losartan 50 mg Tablet 50 mg PO DAILY Qty: 0 0RF Protocol: Hold for SBP< HOLD for SBP < : 90 sennosides-docusate sodium [Senna Plus] 8.6-50 mg Tablet 1 tab PO BID Qty: 60 0RF aspirin 81 mg Tablet,Delayed Release (Dr/Ec) 81 mg PO BEDTIME Qty: 30 0RF trazodone 100 mg Tablet 100 mg PO BEDTIME Qty: 30 0RF metoprolol tartrate 50 mg Tablet 50 mg PO BID Qty: 0 0RF Protocol: Hold for SBP/HR < HOLD for SBP < : 90 HOLD for HR < : 60 paroxetine HCl 40 mg Tablet 40 mg PO DAILY Qty: 30 0RF Eliquis 5 mg Tablet 5 mg PO BID Qty: 60 0RF oxycodone 5 mg Tablet 5 mg PO QID PRN (Reason: Pain, Severe) Qty: 0 0RF Rx Instructions: Partial Fill upon patient request. Continued amiodarone 200 mg tablet 200 mg PO DAILY Qty: 90 3RF insulin glargine [Lantus U-100 Insulin] 100 unit/mL solution 65 unit subcut QPM glipizide 5 mg tablet extended release 24hr 1 tab PO QAM calcium carbonate [Oyster Shell Calcium 500] 500 mg calcium (1,250 mg) tablet 1 tab PO BID atorvastatin 80 mg tablet 80 mg PO BEDTIME dapagliflozin propanediol [Farxiga] 10 mg tablet 10 mg PO QAM levothyroxine 25 mcg tablet 25 mcg PO DAILY metformin 1,000 mg tablet 1,000 mg PO BID amlodipine 10 mg tablet 10 mg PO DAILY Discontinued Eliquis 5 mg tablet 5 mg PO BID Qty: 60 5RF aspirin 81 mg tablet,delayed release (DR/EC) 81 mg PO QPM hydroxyzine HCl 25 mg tablet 25 mg PO Q8H PRN (Reason: anxiety) oxycodone-acetaminophen 10-325 mg tablet 1 tab PO BID PRN (Reason: Pain, Severe) losartan 50 mg tablet 50 mg PO QAM paroxetine HCl 40 mg tablet 40 mg PO QAM Oyster Remigio 500 mg Tablet 500 mg PO DAILY trazodone 150 mg tablet 100 mg PO BEDTIME metoprolol tartrate 50 mg tablet 50 mg PO BID Qty: 60 5RF Rx Instructions: Take 1 tab twice daily Dose has been adjusted to 50mg BID Discharge Orders: Discharge Order (Routine); Ordered 11/03/23 Ordered By: Sayra Villarreal Diet: Regular diet Activity on Discharge: As tolerated Care Plan Goals: 1. Maintain mood 2. No SI/HI Health Concerns: Follow up with PCP: sleep study completed, MRI lumbar finding- chronic back pain. lowered dose of oxycodone due to sedation Plan of Treatment: 1. Take medications as prescribed. 2. Go to nearest ED or call 911 in event of emergency Assessment: Pt with brighter affect. No SI/HI. No psychosis, no delusions. Future oriented, hopeful. No signs of aggression towards self or others. Sleeping and eating well. Patient Instructions: Anxiety (ED)
== END 2023-11-03 11:15 | disposition home or self-care (01) | DRG 885 ==
LOC: HO.ED 10-26 10:36 → HO.PGERI 10-27 13:10
PROVIDERS: Physician Assistant; Admitting Provider Social Worker; Emergency Provider Internal Medicine; PCP Internal Medicine; Visit Provider Social Worker
DX: F33.1 Major depressive disorder, recurrent, moderate (principal); E03.9 Hypothyroidism, unspecified; M54.50 Low back pain, unspecified; E11.9 Type 2 diabetes mellitus without complications; G89.29 Other chronic pain; Z20.822 Contact with and (suspected) exposure to COVID-19; Z79.84 Long term (current) use of oral hypoglycemic drugs; Z79.890 Hormone replacement therapy; Z79.899 Other long term (current) drug therapy
CPT/HCPCS: 36415; 72148; 80053; 80061; 80307; 81001; 81003; 82607; 82947; 83036; 85025; 87086; 87635; 93005; 97116; 97162; 99285; S9485

== ENCOUNTER → 2023-10-27 07:50 | Outpatient (BNV) | payer OTHER, SELFPAY | PROVIDERS: Admitting Provider Social Worker; Emergency Provider Internal Medicine; PCP Internal Medicine; Visit Provider Internal Medicine | DX: R00.1 Bradycardia, unspecified (principal); I44.0 Atrioventricular block, first degree | CPT/HCPCS: 93010 ==

== ENCOUNTER → 2023-10-27 13:09 | Outpatient (BNV) | payer OTHER, SELFPAY | PROVIDERS: Admitting Provider Social Worker; Emergency Provider Internal Medicine; PCP Internal Medicine; Visit Provider Psychiatry & Neurology Psychiatry | DX: F33.1 Major depressive disorder, recurrent, moderate (principal) | CPT/HCPCS: 90792; 99231; 99238; 99499 ==

== ENCOUNTER → 2023-10-27 13:09 | Outpatient (BNV) | payer OTHER, SELFPAY | PROVIDERS: Admitting Provider Social Worker; Emergency Provider Internal Medicine; PCP Internal Medicine; Visit Provider Psychiatry & Neurology Psychiatry | DX: F33.1 Major depressive disorder, recurrent, moderate (principal) | CPT/HCPCS: 99231; 99232 ==

== ENCOUNTER → 2023-10-27 13:09 | Outpatient (BNV) | payer OTHER, SELFPAY | PROVIDERS: Admitting Provider Social Worker; Emergency Provider Internal Medicine; PCP Internal Medicine; Visit Provider Psychiatry & Neurology Neurology | DX: M54.50 Low back pain, unspecified (principal); G89.29 Other chronic pain; E66.01 Morbid (severe) obesity due to excess calories; Z68.44 Body mass index [BMI] 60.0-69.9, adult | CPT/HCPCS: 99222 ==

== ENCOUNTER → 2023-11-09 10:52 | Outpatient (REF) | payer OTHER, SELFPAY ==
--- NOTE | 2023-11-09 10:55 | HM_ITS ---
Conclusion: 1. Patient was monitored for total period of 2 days and 21 hours 2. Baseline was normal sinus with average heart of 54 beats per minute 3. Frequent sinus bradycardia noted with 91.8% of time heart rate below 60 beats per minute with no significant pauses 4. Rare ectopy noted 5. No patient reported events MTDD
[2023-11-09 12:58] LABS: Free T4 (Free Thyroxine) 0.97 ng/dL (0.71-1.85)
== END ==
LOC: HO.CARD 10:52
PROVIDERS: PCP Internal Medicine; Visit Provider Nurse Practitioner Family
DX: I48.92 Unspecified atrial flutter (principal); E03.9 Hypothyroidism, unspecified; Z79.899 Other long term (current) drug therapy
CPT/HCPCS: 36415; 84439; 84443; 93242

== ENCOUNTER → 2023-11-09 10:55 | Outpatient (BNV) | payer OTHER, SELFPAY | PROVIDERS: PCP Internal Medicine; Visit Provider Internal Medicine Cardiovascular Disease | DX: R00.1 Bradycardia, unspecified (principal) | CPT/HCPCS: 93244 ==

== ENCOUNTER 2023-11-18 13:48 | Outpatient (AMB) | payer OTHER, SELFPAY ==
[2023-11-18 13:54] VITALS: BP 110/60; PULSE 58; BMI 45.3
--- NOTE | 2023-11-18 13:54 | MHC.OFFVIS ---
Intake Vital Signs 11/18/23 13:54 Height 5 ft 2 in Weight 247 lb 12.793 oz BMI 45.3 BP 110/60 Blood Pressure Location Lt brachial Position Sitting Pulse 58 Intake Visit Reasons: 4 wk f/up labs Intake Note: pt its here for 4 wk f/up labs. Student Counselor Required: Yes Student Counselor Name: [id number] Accompanied by: Daughter Allergies codeine [CODEINE] Allergy (Intermediate, Verified 10/26/23 14:14) HALLUCINATIONS Medication List - Last Reconciled 11/18/23 by Faviola Stovall, DRESSER TENDER-C amiodarone 200 mg PO DAILY amlodipine 10 mg PO DAILY apixaban (Eliquis) 5 mg PO BID aspirin 81 mg PO BEDTIME atorvastatin 80 mg PO BEDTIME calcium carbonate (Oyster Shell Calcium 500) 1 tab PO BID dapagliflozin propanediol (Farxiga) 10 mg PO QAM glipizide ER 1 tab PO QAM insulin glargine (Lantus U-100 Insulin) 65 units subcut QPM levothyroxine 50 mcg PO DAILY losartan 50 mg See Protocol PO DAILY metformin 1,000 mg PO BID metoprolol tartrate 50 mg See Protocol PO BID oxycodone 5 mg PO QID PRN paroxetine HCl 40 mg PO DAILY sennosides-docusate sodium 8.6-50 mg (Senna Plus) 1 tab PO BID trazodone 100 mg PO BEDTIME HPI 4 wk f/up labs HPI Details Mary Lou is a 73-year-old female past medical history of obesity, hypertension, hyperlipidemia, diabetes, CAD, newer atrial flutter who presents for follow-up. Today she reports that she is having increasing shortness of breath which she states is from her asthma. She gets some relief when she uses her asthma pump. She continues to sleeping on the couch. Intermittent cough, no fevers. Mostly sedentary and ambulating only short distances. No chest discomfort, palpitations, presyncope, syncope, falls. Still has bilateral leg edema. Taking all meds as directed. Daughter is present. 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 [facility] Medical History Abuse of non-prescription analgesics Type 2 diabetes mellitus with unspecified complications Other and unspecified hyperlipidemia Essential hypertension Atherosclerotic cardiovascular disease Urgency incontinence Osteoporosis Arthritis Asthma Hypertension Fibromyalgia Diabetes mellitus Surgical History History of hernia repair Social History Household Members: Children Housing: Apartment Do you presently have visiting nurse or other home services: Yes Unable to assess alcohol history related to: Refusing to respond Alcohol intake: never 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 Patient Tobacco Use Status: Never used Tobacco service: No Sexual orientation: Straight/Heterosexual Review of Systems Const All systems reviewed & are unremarkable except as noted in HPI and below Denies chills, Denies fatigue, Denies fever(s), Denies frequent falls, Denies weakness, Denies weight gain and Denies weight loss ENT Denies dizziness Card Denies chest pain, Denies leg edema, Denies lightheadedness, Denies palpitations, Reports dyspnea and Reports dyspnea on exertion Resp Details: asthma acting up Denies cough, Reports dyspnea and Reports dyspnea on exertion GI Denies hematochezia Musc Denies abnormal gait, Denies muscle weakness, Denies numbness, Denies radiating pain into limb and Denies tingling Neuro Denies abnormal gait, Denies dizziness, Denies frequent falls, Denies numbness, Denies tingling and Denies weakness Endo Denies fatigue and Denies palpitations Physical Exam Vital Signs: Last Vital Signs Pulse 58 11/18/23 13:54 BP 110/60 11/18/23 13:54 BMI result Body Mass Index 45.3 Const Other: morbidly obese General: cooperative and no acute distress Orientation/consciousness: patient oriented x3 Neck Neck: Yes normal visual inspection and Yes no JVD Resp Other: increased work of breathing Effort & Inspection: able to speak in complete sentences Auscultation: clear to auscultation bilaterally, no rales, no rhonchi and wheezes (few expiratory) Cardio Jugular venous distension: no JVD Rate: regular rate Rhythm: regular rhythm Heart sounds: S1 normal heart sound present, S2 normal heart sound present, no murmurs and no rubs Skin General skin exam: no rashes or lesions noted Neuro General: patient oriented x3 Extrem Other: bilateral lower leg edema Psych Appearance: grossly normal Mental Status: mental status grossly normal Speech and movement: Normal speech and movement present Office Procedures EKG Details: Today, read by me, sinus bradycardia, low-voltage QRS, can not exclude anterior infarct, rate 58, QTC 437 millisecond [id number], Complete Assessment & Plan Assessment & Plan (1) Atrial flutter: Code(s): I48.92 - Unspecified atrial flutter Qualifiers: Atrial flutter type: typical Qualified Code(s): I48.3 - Typical atrial flutter Plan: Newer finding of atrial flutter. She was put on metoprolol for heart rate control. She was started on Eliquis 5 mg b.i.d. for anticoagulation 05/06/23. She then had mild congestive heart failure and was put on lasix. She underwent a cardioversion 06/11/2023 with successful conversion to sinus rhythm. She was started on amiodarone at that time. Her metoprolol dose was reduced from 100 mg b.i.d. down to 50 mg b.i.d.. Echocardiogram done 07/27/2023 shows EF 65-70%, moderate LVH, mild , mildly dilated ascending aorta 4 cm. Today she reports having increased shortness of breath which she states is from her asthma. She does have bilateral leg edema which is not new. On last visit her Lasix dose was increased. A Holter monitor was done on 11/09/2023 for 3 days showing sinus bradycardia with average heart rate 54, 91.8% of time heart rate less than 60. Blunted heart rate range. She is mostly sedentary which can contribute. An EKG done today shows sinus bradycardia, low-voltage QRS, can not exclude anterior infarct, rate 58. Will continue amiodarone. Will reduce metoprolol to 25 mg b.i.d.. Will order chest x-ray to evaluate for any amiodarone toxicity. Labs done on 11/09/2023 showed TSH 17.3. Levothyroxine dose was increased from 25 mcg up to 50 mcg daily by her PCP. Recent LFTs are normal. Due to her shortness of breath and leg edema will have her further increase Lasix up to 60 mg daily. BMP and BNP in 5-7 days. Cardiology follow-up 4-6 weeks sooner if needed. Emergency care if needed for symptoms. (2) Leg edema: Code(s): R60.0 - Localized edema Plan: As above (3) Coronary artery disease: Code(s): I25.10 - Atherosclerotic heart disease of [place] coronary artery without angina pectoris Plan: Reported history of CAD. Currently no reports of anginal sounding symptoms. She does have shortness of breath with activity which is likely multifactorial. She is not on aspirin as she is on Eliquis. She is on high-dose atorvastatin with ideal LDL goal less than 70. She is on metoprolol. Signs and symptoms of angina reviewed. (4) Essential hypertension: Code(s): I10 - Essential (primary) hypertension Plan: Controlled at present (5) CHF (congestive heart failure): Code(s): I50.9 - Heart failure, unspecified Plan: Patient has chronic shortness of breath with activity. She does have some wheezes noted on exam today. She tells me that her asthma has been acting up. She reports getting relief from her asthma pump. This could also be some fluid overload. She is morbidly obese which makes clinical assessment more challenging. She does have leg edema which is unchanged from prior visits. Will further increase her Lasix up to 60 mg daily. Labs in 5-7 days. Prior BNP is normal however she is morbidly obese making reading not as reliable. 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 (8) Sinus bradycardia: Code(s): R00.1 - Bradycardia, unspecified Plan: Noted on Holter monitor and EKG today. Reducing metoprolol. Plan Time spent on chart review, documentation, interview assess Orders: Orders XR chest 2V Today Z79.899 - Other jail (current) drug therapy Medications: New metoprolol tartrate dose reduced 25 mg PO BID 60 tabs 5RF furosemide (Lasix) 60 mg (3 x 20 mg) PO DAILY 90 tabs 5RF 30 days Coding Level of Care Code Est Pt Level 4 (00730) Diagnoses Typical atrial flutter I48.3 Atrial flutter type: typical Leg edema R60.0 Coronary artery disease I25.10 Essential hypertension I10 CHF (congestive heart failure) I50.9 Anticoagulated Z79.01 On amiodarone therapy Z79.899 Sinus bradycardia R00.1 CPT Codes EKG - CPT: [id number]-[id number], Complete ([id number]) Time Spent (min) 28
== END 2023-11-18 14:30 | disposition home or self-care (01) ==
PROVIDERS: PCP Registered Nurse; Visit Provider Nurse Practitioner Family
DX: I48.3 Typical atrial flutter (principal); R60.0 Localized edema; I25.10 Atherosclerotic heart disease of native coronary artery without angina pectoris; I10 Essential (primary) hypertension; I50.9 Heart failure, unspecified; Z79.01 Long term (current) use of anticoagulants; Z79.899 Other long term (current) drug therapy; R00.1 Bradycardia, unspecified
CPT/HCPCS: 93010; 99214

== ENCOUNTER → 2023-11-18 13:48 | Outpatient (BNVA) | payer OTHER, SELFPAY | PROVIDERS: PCP Registered Nurse; Visit Provider Nurse Practitioner Family | DX: I48.92 Unspecified atrial flutter (principal); I25.10 Atherosclerotic heart disease of native coronary artery without angina pectoris; R60.0 Localized edema; I11.0 Hypertensive heart disease with heart failure; I50.9 Heart failure, unspecified; R00.1 Bradycardia, unspecified; Z79.01 Long term (current) use of anticoagulants; Z79.899 Other long term (current) drug therapy | CPT/HCPCS: 93005; 99212 ==

== ENCOUNTER 2024-01-06 11:04 | Emergency (ER) | payer OTHER, SELFPAY ==
--- NOTE | ~2024-01-06 | XR_ITS ---
EXAMINATION: XR CHEST CLINICAL INFORMATION: Weakness and chills COMPARISON: None available. TECHNIQUE: Frontal view of the chest was obtained. FINDINGS: Portable AP study. Moderate cardiomegaly with normal caliber pulmonary vessels. Lungs grossly clear given technical limitations. There is degenerative change in the shoulder joints. XR/XR chest 1V IMPRESSION: No evidence for congestive change. No active disease.
[2024-01-06 11:26] VITALS: BP 129/61; BP 132/76; PULSE 58; PULSE 59; RESP 18; TEMP 37.2; O2SAT 94; O2SAT 98; BMI 50.0
--- NOTE | 2024-01-06 11:37 | ED_ITS ---
HPI - General Adult General Chief complaint: Altered Mental Status Stated complaint: CP,SOB,AMS,?UTI PER EMS Time Seen by Provider: 01/06/24 11:25 Source: patient, EMS, old records reviewed and clerical and administrative workers Mode of arrival: EMS Limitations: no limitations History of Present Illness ED Provider: RM HPI narrative: 73 yo female with PMH of depression, ANILA, asthma, aflutter on amiodarone and eliquis, opiate dependence, HLD, HTN, DM here with c/o 3 days of feeling cold and anxiety where she cannot sleep or rest. She denies known fevers, chest pain, cough, sick contacts. She states she has no chest pain has not fallen. Was treated last week with oral antibiotics and ointment for left leg rash that is improving. She is asking for anxiety medication. States no stress in life right now. MD complaint: chills, anxiety Onset (ago): day(s) (3) Radiation: non-radiation Severity: moderate Relieving factors: none Exacerbating factors: none Associated symptoms: fever/chills Treatments prior to arrival: none Related Data Home Medications ?Medication ?Instructions ?Recorded ?Confirmed calcium carbonate (Oyster Shell 1 tab PO BID 07/22/20 11/18/23 Calcium 500) glipizide 5 mg tablet, extended 1 tab PO QAM 07/22/20 11/18/23 release 24 hr insulin glargine 100 unit/mL 65 unit subcut QPM 07/22/20 11/18/23 subcutaneous solution (Lantus U-100 Insulin) amlodipine 10 mg tablet 10 mg PO DAILY 04/07/21 11/18/23 atorvastatin 80 mg tablet 80 mg PO BEDTIME 04/07/21 11/18/23 metformin 1,000 mg tablet 1,000 mg PO BID 04/07/21 11/18/23 dapagliflozin propanediol 10 mg 10 mg PO QAM 10/25/23 11/18/23 tablet (Farxiga) levothyroxine 50 mcg tablet 50 mcg PO DAILY 11/18/23 11/18/23 Previous Rx's ?Medication ?Instructions ?Recorded amiodarone 200 mg tablet 200 mg PO DAILY #90 tabs 08/16/23 apixaban 5 mg tablet (Eliquis) 5 mg PO BID #60 tabs 11/03/23 aspirin 81 mg tablet,delayed 81 mg PO BEDTIME #30 tabs 11/03/23 release losartan 50 mg tablet 50 mg PO DAILY #0 tabs 11/03/23 oxycodone 5 mg tablet 5 mg PO QID PRN Pain, Severe #0 11/03/23 tabs paroxetine HCl 40 mg tablet 40 mg PO DAILY #30 tabs 11/03/23 sennosides 8.6 mg-docusate sodium 1 tab PO BID #60 tabs 11/03/23 50 mg tablet (Senna Plus) trazodone 100 mg tablet 100 mg PO BEDTIME #30 tabs 11/03/23 furosemide 20 mg tablet (Lasix) 60 mg (3 x 20 mg) PO DAILY 30 days 11/18/23 #90 tabs metoprolol tartrate 25 mg tablet 25 mg PO BID #60 tabs 11/18/23 Allergies Allergy/AdvReac Type Severity Reaction Status Date / Time codeine [CODEINE] Allergy Intermediate HALLUCINATI Verified 01/06/24 11:33 ONS Review of Systems 2 Review of Systems: Constitutional : No Fever, pos Chills, No Fatigue ENT/Mouth : No sore throat, No Rhinorrhea Eyes: No Eye Pain, No Swelling, No Redness Cardiovascular : No Chest Pain, No SOB, No Dyspnea on Exertion Respiratory : No Cough, No Sputum Gastrointestinal : No Nausea, No Vomiting, No Diarrhea, No abdominal Pain Genitourinary : No Dysuria, No Urinary Frequency, No Hematuria, Musculoskeletal : No joint pain, No Myalgias, No Joint Swelling Skin : No Skin Lesions, No rash Neuro : No Weakness, No Numbness, No Dizziness, no Headache Psych : pos Anxiety/Panic, No Depression Heme/Lymph: No Bruising, No Bleeding,No Lymphadenopathy Endocrine : No Polyuria, No Polydipsia All other systems reviewed and are negative [facility] Past Medical History Attestation statement: The following information was validated with the patient. Source: old records reviewed Medical History Abuse of non-prescription analgesics Type 2 diabetes mellitus with unspecified complications Other and unspecified hyperlipidemia Essential hypertension Atherosclerotic cardiovascular disease Urgency incontinence Osteoporosis Arthritis Asthma Hypertension Fibromyalgia Diabetes mellitus Surgical History History of hernia repair Social History Social History (Reviewed 05/30/24 @ 11:41 by MERYL Davalos Household Members: Children Housing: Apartment Do you presently have visiting nurse or other home services: Yes Unable to assess alcohol history related to: Refusing to respond Alcohol intake: never 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 Oriented X3. No acute distress. not altered Eyes: Pupils equal, round and reactive to light. ENT: Pharynx normal. Neck: Normal inspection. Neck supple. CVS: Normal heart rate and rhythm. Pulses normal. Respiratory: No respiratory distress. Breath sounds normal. Abdomen: Soft and nontender. Skin: Skin warm and dry. Normal skin color. Normal skin turgor. Extremities: bilateral trace pitting edema faint ulcerated pink skin without exudates or abscess noted L anterior shay dressing is c/d/i Neuro: Oriented X 3. No motor deficit. No sensory deficit. anxious but calm and oriented Medications Administered Generic Name Dose Route Start Last Admin Trade Name Freq PRN Reason Stop Dose Admin Magnesium Sulfate 2 gm in 50 mls @ 25 mls/hr 01/06/24 13:42 01/06/24 14:06 Magnesium Sulfate/H2o IV 01/06/24 15:41 25 mls/hr ONCE ONE Administration Discontinued Medications Generic Name Dose Route Start Last Admin Trade Name Freq PRN Reason Stop Dose Admin Acetaminophen 650 mg 01/06/24 11:53 01/06/24 12:27 Acetaminophen 325 Mg Tablet PO 01/06/24 11:54 650 mg ONCE ONE Administration Alprazolam 0.5 mg 01/06/24 11:53 01/06/24 12:27 Alprazolam 0.5 Mg Tablet PO 01/06/24 11:54 0.5 mg ONCE ONE Administration Medical Decision Making Medical Decision Making MDM Narrative: 73 yo female with PMH of depression, ANILA, asthma, aflutter on amiodarone and eliquis, opiate dependence, HLD, HTN, DM here with c/o chills and anxiety she denies CP/SOB she is not altered or confused at this time labs, EKG, UA, CXR, viral panel and tylenol/xanax. Differential Diagnosis Differential Diagnoses: The differential diagnosis associated with the presentation includes viral syndrome, anxiety Admission/Observation Consideration of admission/observation: Escalation of care including admission/observation considered no acute findings today neg procal no lactic acid no WBC count VS reassuring no pneumonia no UTI feels better stable for DC at this time repleted magnesium Lab Data [facility] Lab Attestation statement: I reviewed the patient's lab results. 01/06/24 12:48 01/06/24 12:48 Labs: Lab Results 01/06/24 01/06/24 Range/Units 12:48 14:23 WBC 5.9 (4.8-10.8) X10*3/uL RBC 3.81 L (4.20-5.50) X10*6/uL Hgb 10.3 L (12.0-16.0) g/dl Hct 32.4 L (37.0-47.0) % MCV 85.0 (80.0-98.0) fL MCH 27.0 (27.0-33.0) pg MCHC 31.8 (31.0-35.0) g/dl RDW 14.4 (11.0-16.0) % Plt Count 204 (160-400) X10*3/uL MPV 10.8 (9.4-12.3) fL Immature Gran % (Auto) 0.5 H (0.0-0.4) % Neut % (Auto) 61.0 (45-73) % Lymph % (Auto) 23.5 (20-40) % [place] % (Auto) 9.2 (2-11) % Eos % (Auto) 4.8 H (0-4) % Baso % (Auto) 1.0 (0-2) % Lymph # (Auto) 1.4 (1.2-4.9) X10*3/uL [place] # (Auto) 0.5 (0.1-1.2) X10*3/uL Eos # (Auto) 0.3 (0.0-0.4) X10*3/uL Baso # (Auto) 0.1 (0.0-0.2) X10*3/uL Abs Immat Gran (auto) 0.03 (0.00-0.03) X10*3/uL Absolute Neuts (auto) 3.6 (2.0-8.3) x10*3/uL Absolute Nucleated RBC 0.000 (0.0-0.012) X10*3/uL Nucleated RBC % (auto) 0.0 (0.0-0.2) /100WBC Sodium 140 (135-145) mmol/L Potassium 4.8 (3.3-5.1) mmol/L Chloride 104 (96-108) mmol/L Carbon Dioxide 26 (22-29) mmol/L Anion Gap 15 (12-20) BUN 24 H (9-16) mg/dL Creatinine 1.27 (0.5-1.4) mg/dL Estim Creat Clear Calc 43.4 Estimated GFR 41 Random Glucose 186 H (60-115) mg/dL Lactic Acid 2.0 (0.5-2.0) mmol/L Calcium 8.8 D (8.4-10.2) mg/dL Magnesium 1.5 L (1.6-2.6) mg/dL Total Bilirubin 0.2 (0.0-1.0) mg/dL Direct Bilirubin < 0.2 (0.0-0.5) mg/dL AST 19 (5-31) U/L ALT 11 (0-31) U/L Alkaline Phosphatase 59 (39-117) U/L Troponin I High Sens 5.9 (<3.5-17.0) ng/L B-Natriuretic Peptide 157 H (<100) pg/mL Total Protein 6.1 L (6.5-8.0) g/dL Albumin 3.1 L (3.5-5.0) g/dL Lipase 21 (8-78) U/L Procalcitonin 0.02 ng/mL Urine Color Yellow Urine Appearance Clear Urine pH 8.5 (5.0-9.0) Ur Specific [place] 1.020 (1.005-1.025) Urine Protein 30 (1+) H (Neg-Trace) mg/dL Urine Glucose (UA) 500 H (Negative) mg/dL Urine Ketones Negative (Negative) mg/dL Urine Blood Trace H (Negative) Urine Nitrite Negative (Negative) Ur Leukocyte Esterase Negative (Negative) Urine RBC 3-5 H (0-2) /HPF Urine WBC 0-5 (0-5) /HPF Ur Squamous Epith Cells 0-2 (0-2) /HPF Urine Bacteria None Seen (None Seen) Hyaline Casts 0-2 (0-2) /LPF Influenza Type A (PCR) NEGATIVE (Negative) Influenza Type B (PCR) NEGATIVE (Negative) RSV RNA Qual (PCR) NEGATIVE (Negative) SARS-CoV-2 RNA (RT-PCR) NEGATIVE (Negative) Independent Interpretation I performed an independent interpretation of an: EKG and Plain X-Ray (no pneumonia) Interpretation: Rate: 59 Rhythm: sinus bradycardia [place]: left Normal P waves. Normal PUSH[place]. Normal QRS complex. ST T wave : no WILLY, nonspecific ST T wave changes anterior and lateral leads qTC: 429 prior studies: no acute ischemia The study has been interpreted contemporaneously by me. . Radiology Impression Discussion of test interpretation with radiology: I have reviewed the radiologist's reading. Independent Historian Clinical information obtained from an independent historian. History obtained from or confirmed by: EMS External Record Review External record reviewed: Inpatient record Discharge Plan Discharge Clinical Impression: Anxiety, Hypomagnesemia Patient Disposition: Home, Self-Care Instructions: Anxiety (ED), Hypomagnesemia (ED) Additional Instructions: no pneumonia, no UTI, normal lactic acid, negative procalcitonin labs reassuring negative for covid and flu/rsv continue medications return for any worsening symptoms or concerns we did replete your magnesium Prescriptions: No Action amiodarone 200 mg tablet 200 mg PO DAILY Qty: 90 3RF insulin glargine [Lantus U-100 Insulin] 100 unit/mL solution 65 unit subcut QPM glipizide 5 mg tablet extended release 24hr 1 tab PO QAM calcium carbonate [Oyster Shell Calcium 500] 500 mg calcium (1,250 mg) tablet 1 tab PO BID atorvastatin 80 mg tablet 80 mg PO BEDTIME dapagliflozin propanediol [Farxiga] 10 mg tablet 10 mg PO QAM losartan 50 mg Tablet 50 mg PO DAILY Qty: 0 0RF Protocol: Hold for SBP< HOLD for SBP < : 90 sennosides-docusate sodium [Senna Plus] 8.6-50 mg Tablet 1 tab PO BID Qty: 60 0RF aspirin 81 mg Tablet,Delayed Release (Dr/Ec) 81 mg PO BEDTIME Qty: 30 0RF trazodone 100 mg Tablet 100 mg PO BEDTIME Qty: 30 0RF paroxetine HCl 40 mg Tablet 40 mg PO DAILY Qty: 30 0RF Eliquis 5 mg Tablet 5 mg PO BID Qty: 60 0RF oxycodone 5 mg Tablet 5 mg PO QID PRN (Reason: Pain, Severe) Qty: 0 0RF Rx Instructions: Partial Fill upon patient request. metformin 1,000 mg tablet 1,000 mg PO BID amlodipine 10 mg tablet 10 mg PO DAILY levothyroxine 50 mcg tablet 50 mcg PO DAILY metoprolol tartrate 25 mg tablet 25 mg PO BID Qty: 60 5RF Rx Instructions: dose reduced furosemide [Lasix] 20 mg tablet 60 mg PO DAILY 30 Days Qty: 90 5RF Print Language: Upper Sorbian
--- NOTE | 2024-01-06 11:55 | ECG_ITS ---
Test Reason : CP Blood Pressure : / mmHG Vent. Rate : 059 BPM Atrial Rate : 059 BPM P-R Int : 200 ms QRS Dur : 090 ms QT Int : 434 ms P-R-T Axes : 043 -32 000 degrees QTc Int : 429 ms Artifact in tracing Sinus bradycardia Left axis deviation Anterior infarct , age undetermined Abnormal ECG When compared with ECG of 27-OCT-2023 07:50, No significant change was found Referred By: Kassy Barnard Electronically Signed By:JUANPABLO BOSS
[2024-01-06] MEDS: Acetaminophen 325 MG TABLET 650 MG PO (12:27)
[2024-01-06] MEDS: ALPRAZolam 0.5 MG TABLET PO (12:27)
[2024-01-06 12:54] LABS: MANUAL DIFF FLAG NO
[2024-01-06 12:55] LABS: Basophils Absolute Auto 0.1 X10*3/uL (0.0-0.2); Eosinophils Absolute Auto 0.3 X10*3/uL (0.0-0.4); Eosinophils Percent Auto 4.8 % (0-4); Hematocrit 32.4 % (37.0-47.0); Hemoglobin 10.3 g/dl (12.0-16.0); Imm Gran Abs Auto 0.03 X10*3/uL (0.00-0.03); Imm Gran Pct Auto 0.5 % (0.0-0.4); Lymphocytes Absolute Auto 1.4 X10*3/uL (1.2-4.9); Lymphocytes Percent Auto 23.5 % (20-40); Mean Corpuscular HGB Conc 31.8 g/dl (31.0-35.0); Mean Platelet Volume 10.8 fL (9.4-12.3); Monocytes Absolute Auto 0.5 X10*3/uL (0.1-1.2); Monocytes Percent Auto 9.2 % (2-11); Neutrophils Absolute Auto 3.6 x10*3/uL (2.0-8.3); Platelet Count 204 X10*3/uL (160-400); Red Blood Count 3.81 X10*6/uL (4.20-5.50); Red Cell Distribution Width 14.4 % (11.0-16.0); White Blood Count 5.9 X10*3/uL (4.8-10.8)
[2024-01-06 13:17] LABS: B Type Natriuretic Peptide 157 pg/mL (<100)
[2024-01-06 13:19] LABS: Troponin-I High Sensitivity 5.9 ng/L (<3.5-17.0)
[2024-01-06 13:33] LABS: Procalcitonin 0.02 ng/mL
[2024-01-06 13:34] LABS: Alanine Aminotransferase 11 U/L (0-31); Albumin Level 3.1 g/dL (3.5-5.0); Alkaline Phosphatase 59 U/L (39-117); Anion Gap 15 (12-20); Aspartate Amino Transferase 19 U/L (5-31); Bilirubin Direct < 0.2 mg/dL (0.0-0.5); Bilirubin Total 0.2 mg/dL (0.0-1.0); Blood Urea Nitrogen 24 mg/dL (9-16); Calcium 8.8 mg/dL (8.4-10.2); Carbon Dioxide 26 mmol/L (22-29); Chloride 104 mmol/L (96-108); Creatinine Clr Calc Pharmacy 43.4; Estimated Glomerular Filt Rate 41; Glucose Random 186 mg/dL (60-115); Lipase 21 U/L (8-78); Magnesium 1.5 mg/dL (1.6-2.6); Potassium 4.8 mmol/L (3.3-5.1); Sodium 140 mmol/L (135-145); Total Protein 6.1 g/dL (6.5-8.0)
[2024-01-06 13:37] LABS: Influenza A PCR NEGATIVE (Negative); Influenza B PCR NEGATIVE (Negative); Resp Syncy Virus RNA Qual PCR NEGATIVE (Negative); SARS COV2 PCR INHOUSE NEGATIVE (Negative)
[2024-01-06] MEDS: Magnesium Sulfate/H2O 2 GM/50 ML PIGGYBACK IV (14:06)
[2024-01-06 14:31] LABS: Appearance Urine Clear; Color Urine Yellow; Glucose Urine UA 500 mg/dL (Negative); Leukocyte Esterase Urine Negative (Negative); Nitrite Urine Negative (Negative); PH 8.5 (5.0-9.0); UMIC TRIGGER UACC YES; Urine Blood Trace (Negative); Urine Ketones Negative (Negative); Urine Protein 30 (1+) mg/dL (Neg-Trace)
[2024-01-06 14:42] LABS: Bacteria Urine None Seen (None Seen); Hyaline Casts Urine 0-2 /LPF (0-2); Squamous Epithelial Cell Urine 0-2 /HPF (0-2); WBC Urine 0-5 /HPF (0-5)
[2024-01-06 14:46] VITALS: BP 148/61; PULSE 59; RESP 12; O2SAT 93
[2024-01-06 16:14] VITALS: BP 95/63; PULSE 57; RESP 18; TEMP 36.7; O2SAT 94
== END 2024-01-06 16:16 | disposition home or self-care (01) ==
PROVIDERS: Emergency Provider Emergency Medicine; PCP Registered Nurse
DX: F41.9 Anxiety disorder, unspecified (principal); E83.42 Hypomagnesemia; R06.02 Shortness of breath; I10 Essential (primary) hypertension; E11.9 Type 2 diabetes mellitus without complications; I48.92 Unspecified atrial flutter; F11.20 Opioid dependence, uncomplicated; Z79.01 Long term (current) use of anticoagulants; Z79.899 Other long term (current) drug therapy
CPT/HCPCS: 0241U; 36415; 71045; 80048; 80076; 81001; 83605; 83690; 83735; 83880; 84145; 84484; 85025; 87040; 93005; 99284; J3475

== ENCOUNTER → 2024-01-06 11:55 | Outpatient (BNV) | payer OTHER, SELFPAY | PROVIDERS: Emergency Provider Emergency Medicine; PCP Registered Nurse; Visit Provider Internal Medicine | DX: R00.1 Bradycardia, unspecified (principal); R94.31 Abnormal electrocardiogram [ECG] [EKG] | CPT/HCPCS: 93010 ==

== ENCOUNTER 2024-03-18 08:12 | Inpatient (IN) | payer OTHER, SELFPAY ==
[2024-03-18] VITALS (9 sets, daily range): BP systolic 111–145; BP diastolic 53–76; PULSE 63–80; RESP 16–20; TEMP 36.3–38.6; O2SAT 88–100; BMI 45.3
--- NOTE | ~2024-03-18 | US_ITS ---
EXAMINATION: US VENOUS ULTRASOUND WITH DOPPLER LOWER EXTREMITY, BILATERAL CLINICAL INFORMATION: Swelling. Pain. COMPARISON: None available. TECHNIQUE: Ultrasound of the deep veins is performed from the hip to the calf with compression sonography and color and pulse Doppler assessment. Spectral analysis with color-flow imaging is performed. FINDINGS: RIGHT: There is normal venous compression and respiratory variation and augmented flow. The visualized common femoral vein, superficial femoral vein, profunda femoral vein, popliteal vein, and the trifurcation region shows no evidence of deep venous thrombosis. There is no significant popliteal fossa cyst. Calf veins are not well seen. LEFT: There is normal venous compression and respiratory variation and augmented flow. The visualized common femoral vein, superficial femoral vein, profunda femoral vein, popliteal vein, and the trifurcation region shows no evidence of deep venous thrombosis. There is no significant popliteal fossa cyst. Calf veins are not well seen. If the patient's symptoms persist, followup ultrasound in 5 days 7 days might be of value to exclude proximal propagation from a non-visualized calf vein. US/US venous duplex LE BI IMPRESSION: No DVT demonstrated in the bilateral lower extremity.
--- NOTE | ~2024-03-18 | XR_ITS ---
EXAMINATION: XR CHEST CLINICAL INFORMATION: Dyspnea COMPARISON: Chest radiograph from 01/06/2024 TECHNIQUE: Frontal view of the chest was obtained. FINDINGS: Slight elevation left hemidiaphragm. Bilateral low lung volumes. Interstitial prominence. No pneumothorax. Trachea is midline. Cardiac mediastinal silhouette is stable. No large pleural effusion. Osseous structures are intact. Soft tissues are unremarkable. XR/XR chest 1V IMPRESSION: 1. Slight elevation left hemidiaphragm. 2. Bilateral low lung volumes. 3. Interstitial prominence.
--- NOTE | 2024-03-18 08:41 | PC.NURSE ---
Pt presents to ED today via EMS, coming from home. Per EMS Pt was found in an anxious state c/o 9/ pain to bilat lower extremities d/t wounds. Pt SSO. Bilat lower extremities present with erythema, warm to the touch and dry scaly skin. LLE has several areas of necrotic/infected wound beds. RE presents with one open area. VSS, low grade fever. Pt sating at 88% RA, 2L oz applied with positive result--sating at 96%.
--- NOTE | 2024-03-18 08:48 | ED.GENADULT ---
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 This past week wounds changed in color and appearance and the leg became more red and hot. She started to not feel well. She called 911 as she wasn't sure what to do. She does not she is on home O2 PRN at night. She has had chills but no fever. She denies going to the wound care center MD complaint: leg wounds Onset (ago): month(s) (1) Location: left and lower extremity Radiation: extremity Severity: moderate Pain Consistency: constant Relieving factors: rest Exacerbating factors: movement Associated symptoms: fever/chills, loss of appetite, malaise and weakness Treatments prior to arrival: none Related Data Home Medications ?Medication ?Instructions ?Recorded ?Confirmed calcium carbonate (Oyster Shell 1 tab PO BID 07/22/20 11/18/23 Calcium 500) glipizide 5 mg tablet, extended 1 tab PO DAILY 07/22/20 11/18/23 release 24 hr insulin glargine 100 unit/mL 65 unit subcut BEDTIME 07/22/20 11/18/23 subcutaneous solution (Lantus U-100 Insulin) amlodipine 10 mg tablet 10 mg PO DAILY 04/07/21 11/18/23 atorvastatin 80 mg tablet 80 mg PO BEDTIME 04/07/21 11/18/23 metformin 1,000 mg tablet 1,000 mg PO BID 04/07/21 11/18/23 dapagliflozin propanediol 10 mg 10 mg PO DAILY 10/25/23 11/18/23 tablet (Farxiga) levothyroxine 50 mcg tablet 50 mcg PO DAILY@0600 11/18/23 11/18/23 duloxetine 20 mg capsule,delayed 20 mg PO DAILY 03/18/24 release hydroxyzine HCl 25 mg tablet 25 mg PO Q8H PRN anxiety 03/18/24 omeprazole 40 mg capsule,delayed 40 mg PO DAILY@0630 03/18/24 release trazodone 150 mg tablet 150 mg PO BEDTIME 03/18/24 triamcinolone acetonide 0.1 % 1 appl topical BID 03/18/24 topical cream Previous Rx's ?Medication ?Instructions ?Recorded amiodarone 200 mg tablet 200 mg PO DAILY #90 tabs 08/16/23 apixaban 5 mg tablet (Eliquis) 5 mg PO BID #60 tabs 11/03/23 aspirin 81 mg tablet,delayed 81 mg PO BEDTIME #30 tabs 11/03/23 release losartan 50 mg tablet 50 mg PO DAILY #0 tabs 11/03/23 paroxetine HCl 40 mg tablet 40 mg PO DAILY #30 tabs 11/03/23 furosemide 20 mg tablet (Lasix) 60 mg (3 x 20 mg) PO DAILY 30 days 11/18/23 #90 tabs metoprolol tartrate 25 mg tablet 25 mg PO BID #60 tabs 11/18/23 melatonin 5 mg tablet 5 mg PO BEDTIME PRN sleep #30 tabs 01/06/24 Allergies Allergy/AdvReac Type Severity Reaction Status Date / Time codeine [CODEINE] Allergy Intermediate HALLUCINATI Verified 03/18/24 08:33 ONS Review of Systems Review of Systems: Constitutional : No Fever, pos Chills ENT/Mouth : No sore throat, No Rhinorrhea Eyes: No Eye Pain, No Swelling, No Redness Cardiovascular : No Chest Pain, No SOB Respiratory : pos Cough, No Sputum Gastrointestinal : No Nausea, No Vomiting, No Diarrhea, No abdominal Pain Genitourinary : No Dysuria, No Hematuria Musculoskeletal : No joint pain, No Myalgias, No Joint Swelling Skin : pos Skin Lesions, positive skin rash Neuro : No Weakness, No Numbness, No Headache Psych : No Anxiety, No Depression Heme/Lymph: No Bruising, No Bleeding,No Lymphadenopathy Endocrine : No Polyuria, No Polydipsia All other systems reviewed and are negative [facility] Past Medical History Attestation statement: The following information was validated with the patient. Source: old records reviewed Medical History Abuse of non-prescription analgesics Type 2 diabetes mellitus with unspecified complications Other and unspecified hyperlipidemia Essential hypertension Atherosclerotic cardiovascular disease Urgency incontinence Osteoporosis Arthritis Asthma Hypertension Fibromyalgia Diabetes mellitus Surgical History History of hernia repair Social History Social History Household Members: Children Housing: Apartment Do you presently have visiting nurse or other home services: Yes Unable to assess alcohol history related to: Refusing to respond Alcohol intake: never 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 Patient Tobacco Use Status: Never used Tobacco Smoked in Last 30 Days: Yes Advance Directives: No Advance Directives Information Provided: Yes Do you have a plan to hurt others: No Plan service: No Sexual orientation: Straight/Heterosexual Physical Exam ED Vital Signs: Vital Signs - 24 hr 03/18/24 08:28 03/18/24 08:33 03/18/24 08:57 Temperature 99.3 F 99.3 F 101.5 F H Pulse Rate 75 75 Respiratory Rate 16 16 Blood Pressure 116/61 116/61 Pulse Oximetry 88 L 96 Oxygen Delivery Method Room Air Nasal Cannula Oxygen Flow Rate 2 03/18/24 10:00 03/18/24 11:59 Temperature 99.6 F Pulse Rate 67 67 Respiratory Rate 16 20 Blood Pressure 114/53 L 111/65 Pulse Oximetry 100 Oxygen Delivery Method Nasal Cannula Nasal Cannula Oxygen Flow Rate 2 2 BMI result Body Mass Index 45.3 Appearance: Alert. Oriented X3. No acute distress. Eyes: Pupils equal, round and reactive to light. ENT: Pharynx normal. Neck: Normal inspection. Neck supple. CVS: Normal heart rate and rhythm. Pulses normal. Respiratory: No respiratory distress. Breath sounds both bases diminished Abdomen: Soft and nontender. Skin: Skin warm and dry. Normal skin color. Normal skin turgor. Extremities: trace pitting edema both legs, left leg has dark eschars then open yellow ulcers it is red and hot tender to touch, distal pulses intact please see pictures below Neuro: Oriented X 3. No motor deficit. No sensory deficit. Medications Administered Generic Name Dose Route Start Last Admin Trade Name Freq PRN Reason Stop Dose Admin Ceftriaxone Sodium 1 gm/ 50 mls @ 100 mls/hr 03/18/24 13:00 03/18/24 14:02 Sodium Chloride IV Infused Q24H JULIANNE Infusion Oxycodone HCl 5 mg 03/18/24 12:10 03/18/24 13:02 Oxycodone Hcl Immed Release 5 Mg Tablet PO 5 mg Q6H PRN Administration Pain, Severe (Pain Scale 7-10) Discontinued Medications Generic Name Dose Route Start Last Admin Trade Name eJsusq PRN Reason Stop Dose Admin Acetaminophen 975 mg 03/18/24 08:55 03/18/24 09:33 Acetaminophen 325 Mg Tablet PO 03/18/24 08:56 975 mg ONCE ONE Administration Vancomycin HCl 2,000 mg/ 500 mls @ 250 mls/hr 03/18/24 08:55 03/18/24 13:21 Sodium Chloride IV 03/18/24 10:54 Infused ONCE ONE Infusion Cefepime HCl 1 gm/ Sodium 50 mls @ 100 mls/hr 03/18/24 08:56 03/18/24 10:14 Chloride IV 03/18/24 09:25 Infused ONCE ONE Infusion Lactated Ringer's 1,000 mls @ 999 mls/hr 03/18/24 10:05 03/18/24 11:45 Lr IV 03/18/24 11:05 Infused .Q1H1M ONE Infusion Medical Decision Making Medical Decision Making MDM Narrative: 73 yo female with PMH of depression, ANILA, asthma, CHF, aflutter on amiodarone and eliquis, opiate dependence, anxiety, depression, HLD, HTN, DM here with c/o worsening leg wounds now with fevers - no signs of crepitus or necrotizing infection, no signs of abscess on exam. At this time will obtain labs, cultures, CXR, UTI, start on cefepime and vancomycin. Planned admit most likely Differential Diagnosis Differential Diagnoses: The differential diagnosis associated with the presentation includes cellulitis, UTI, pneumonia, viral syndrome Admission/Observation Consideration of admission/observation: Escalation of care including admission/observation considered given fevers and worsening symptoms will admit for IV antibiotics Consult Healthcare Provider Management of the patient was discussed with: Hospitalist (will admit) Lab Data [facility] Lab Attestation statement: I reviewed the patient's lab results. 03/18/24 09:27 03/18/24 09:28 Labs: Lab Results 03/18/24 03/18/24 03/18/24 Range/Units 08:53 09:25 09:26 WBC (4.8-10.8) X10*3/uL RBC (4.20-5.50) X10*6/uL Hgb (12.0-16.0) g/dl Hct (37.0-47.0) % MCV (80.0-98.0) fL MCH (27.0-33.0) pg MCHC (31.0-35.0) g/dl RDW (11.0-16.0) % Plt Count (160-400) X10*3/uL MPV (9.4-12.3) fL Immature Gran % (Auto) (0.0-0.4) % Neut % (Auto) (45-73) % Lymph % (Auto) (20-40) % [place] % (Auto) (2-11) % Eos % (Auto) (0-4) % Baso % (Auto) (0-2) % Lymph # (Auto) (1.2-4.9) X10*3/uL [place] # (Auto) (0.1-1.2) X10*3/uL Eos # (Auto) (0.0-0.4) X10*3/uL Baso # (Auto) (0.0-0.2) X10*3/uL Abs Immat Gran (auto) (0.00-0.03) X10*3/uL Absolute Neuts (auto) (2.0-8.3) x10*3/uL Absolute Nucleated RBC (0.0-0.012) X10*3/uL Nucleated RBC % (auto) (0.0-0.2) /100WBC ESR (0-20) MM/HR Sodium (135-145) mmol/L Potassium (3.3-5.1) mmol/L Chloride (96-108) mmol/L Carbon Dioxide (22-29) mmol/L Anion Gap (12-20) BUN (9-16) mg/dL Creatinine (0.5-1.4) mg/dL Estim Creat Clear Calc Estimated GFR POC Glucose 132 H (60-115) mg/dL Random Glucose (60-115) mg/dL Lactic Acid 2.6 H* (0.5-2.0) mmol/L Calcium (8.4-10.2) mg/dL Magnesium (1.6-2.6) mg/dL Total Bilirubin (0.0-1.0) mg/dL Direct Bilirubin (0.0-0.5) mg/dL AST (5-31) U/L ALT (0-31) U/L Alkaline Phosphatase (39-117) U/L Troponin I High Sens (<3.5-17.0) ng/L C-Reactive Protein (< or = 0.50) mg/dL B-Natriuretic Peptide (<100) pg/mL Total Protein (6.5-8.0) g/dL Albumin (3.5-5.0) g/dL Lipase (8-78) U/L Influenza Type A (PCR) NEGATIVE (Negative) Influenza Type B (PCR) NEGATIVE (Negative) RSV RNA Qual (PCR) NEGATIVE (Negative) SARS-CoV-2 RNA (RT-PCR) NEGATIVE (Negative) 03/18/24 03/18/24 Range/Units 09:27 09:28 WBC 10.0 (4.8-10.8) X10*3/uL RBC 3.70 L (4.20-5.50) X10*6/uL Hgb 9.9 L (12.0-16.0) g/dl Hct 31.0 L (37.0-47.0) % MCV 83.8 (80.0-98.0) fL MCH 26.8 L (27.0-33.0) pg MCHC 31.9 (31.0-35.0) g/dl RDW 15.8 (11.0-16.0) % Plt Count 197 (160-400) X10*3/uL MPV 9.9 (9.4-12.3) fL Immature Gran % (Auto) 0.5 H (0.0-0.4) % Neut % (Auto) 75.9 H (45-73) % Lymph % (Auto) 10.5 L (20-40) % [place] % (Auto) 11.0 (2-11) % Eos % (Auto) 1.7 (0-4) % Baso % (Auto) 0.4 (0-2) % Lymph # (Auto) 1.0 L (1.2-4.9) X10*3/uL [place] # (Auto) 1.1 (0.1-1.2) X10*3/uL Eos # (Auto) 0.2 (0.0-0.4) X10*3/uL Baso # (Auto) 0.0 (0.0-0.2) X10*3/uL Abs Immat Gran (auto) 0.05 H (0.00-0.03) X10*3/uL Absolute Neuts (auto) 7.6 (2.0-8.3) x10*3/uL Absolute Nucleated RBC 0.000 (0.0-0.012) X10*3/uL Nucleated RBC % (auto) 0.0 (0.0-0.2) /100WBC ESR 39 H (0-20) MM/HR Sodium 136 (135-145) mmol/L Potassium 5.1 (3.3-5.1) mmol/L Chloride 101 (96-108) mmol/L Carbon Dioxide 27 (22-29) mmol/L Anion Gap 13 (12-20) BUN 17 H (9-16) mg/dL Creatinine 1.28 (0.5-1.4) mg/dL Estim Creat Clear Calc 45.6 Estimated GFR 41 POC Glucose (60-115) mg/dL Random Glucose 133 H (60-115) mg/dL Lactic Acid (0.5-2.0) mmol/L Calcium 8.6 (8.4-10.2) mg/dL Magnesium 1.8 (1.6-2.6) mg/dL Total Bilirubin 0.4 (0.0-1.0) mg/dL Direct Bilirubin 0.2 (0.0-0.5) mg/dL AST 16 (5-31) U/L ALT 14 (0-31) U/L Alkaline Phosphatase 68 (39-117) U/L Troponin I High Sens 7.2 (<3.5-17.0) ng/L C-Reactive Protein 5.50 H (< or = 0.50) mg/dL B-Natriuretic Peptide 139 H (<100) pg/mL Total Protein 6.1 L (6.5-8.0) g/dL Albumin 3.1 L (3.5-5.0) g/dL Lipase 17 (8-78) U/L Influenza Type A (PCR) (Negative) Influenza Type B (PCR) (Negative) RSV RNA Qual (PCR) (Negative) SARS-CoV-2 RNA (RT-PCR) (Negative) Independent Interpretation I performed an independent interpretation of an: EKG and Plain X-Ray Interpretation: Rate: 75 Rhythm: NSR [place]: left Normal P waves. Normal PUSHPA. Normal QRS complex. ST T wave : flat t waves inf leads, no WILLY qTC: 446 prior studies: no acute ischemia The study has been interpreted contemporaneously by me. . Radiology Impression Discussion of test interpretation with radiology: I have reviewed the radiologist's reading. Independent Historian Clinical information obtained from an independent historian. History obtained from or confirmed by: Spouse and EMS External Record Review External record reviewed: Inpatient record Critical Care Time Critical Care Time Critical Care Time: Yes Total Critical Care Time: 35 Attestation: review of records, sepsis protocol, admission I attest to this time spent taking care of the patient Discharge Plan Discharge Clinical Impression: Acidosis, lactic Cellulitis Qualifiers: Site of cellulitis: extremity Site of cellulitis of extremity: lower extremity Laterality: left Qualified Code(s): L03.116 - Cellulitis of left lower limb Fever Qualifiers: Fever type: unspecified Qualified Code(s): R50.9 - Fever, unspecified Patient Disposition: Admitted As Inpatient
--- NOTE | 2024-03-18 08:53 | ECG_ITS ---
Test Reason : DYSPNEA Blood Pressure : / mmHG Vent. Rate : 075 BPM Atrial Rate : 075 BPM P-R Int : 202 ms QRS Dur : 088 ms QT Int : 400 ms P-R-T Axes : 044 -32 014 degrees QTc Int : 446 ms Normal sinus rhythm Left axis deviation Abnormal ECG When compared with ECG of 06-JAN-2024 12:42, Nonspecific T wave abnormality no longer evident in Anterior leads Referred By: Kassy Barnard Electronically Signed By:TRINY SCHAFFER MD
[2024-03-18] MEDS: cefEPime HCl 1 GM in 0.9 % Sodium Chloride 50 ML IV (09:33)
[2024-03-18] MEDS: Acetaminophen 325 MG TABLET 975 MG PO (09:33)
[2024-03-18 09:34] LABS: MANUAL DIFF FLAG NO
[2024-03-18 09:35] LABS: Basophils Percent Auto 0.4 % (0-2); Eosinophils Absolute Auto 0.2 X10*3/uL (0.0-0.4); Eosinophils Percent Auto 1.7 % (0-4); Hemoglobin 9.9 g/dl (12.0-16.0); Imm Gran Abs Auto 0.05 X10*3/uL (0.00-0.03); Imm Gran Pct Auto 0.5 % (0.0-0.4); Lymphocytes Percent Auto 10.5 % (20-40); Mean Corpuscular HGB Conc 31.9 g/dl (31.0-35.0); Mean Corpuscular Hemoglobin 26.8 pg (27.0-33.0); Mean Corpuscular Volume 83.8 fL (80.0-98.0); Mean Platelet Volume 9.9 fL (9.4-12.3); Monocytes Absolute Auto 1.1 X10*3/uL (0.1-1.2); Neutrophils Absolute Auto 7.6 x10*3/uL (2.0-8.3); Neutrophils Percent Auto 75.9 % (45-73); Platelet Count 197 X10*3/uL (160-400); Red Cell Distribution Width 15.8 % (11.0-16.0)
[2024-03-18 09:59] LABS: Alanine Aminotransferase 14 U/L (0-31); Albumin Level 3.1 g/dL (3.5-5.0); Alkaline Phosphatase 68 U/L (39-117); Anion Gap 13 (12-20); Aspartate Amino Transferase 16 U/L (5-31); Bilirubin Direct 0.2 mg/dL (0.0-0.5); Bilirubin Total 0.4 mg/dL (0.0-1.0); Blood Urea Nitrogen 17 mg/dL (9-16); Calcium 8.6 mg/dL (8.4-10.2); Carbon Dioxide 27 mmol/L (22-29); Chloride 101 mmol/L (96-108); Creatinine Clr Calc Pharmacy 45.6; Estimated Glomerular Filt Rate 41; Glucose Random 133 mg/dL (60-115); Lipase 17 U/L (8-78); Magnesium 1.8 mg/dL (1.6-2.6); Potassium 5.1 mmol/L (3.3-5.1); Sodium 136 mmol/L (135-145); Total Protein 6.1 g/dL (6.5-8.0)
[2024-03-18 10:02] LABS: B Type Natriuretic Peptide 139 pg/mL (<100)
[2024-03-18 10:05] LABS: Lactic Acid 2.6 mmol/L (0.5-2.0)
[2024-03-18 10:06] LABS: Troponin-I High Sensitivity 7.2 ng/L (<3.5-17.0)
--- NOTE | 2024-03-18 10:12 | PC.NURSE ---
Attempted to administer 2g Vanco IV. Pyxis supply is zero. Pharmacy contacted and will refill. Will administer Abx once available.
[2024-03-18 10:13] LABS: Erythrocyte Sedimentation Rate 39 MM/HR (0-20)
[2024-03-18 10:15] LABS: Influenza A PCR NEGATIVE (Negative); Influenza B PCR NEGATIVE (Negative); Resp Syncy Virus RNA Qual PCR NEGATIVE (Negative); SARS COV2 PCR INHOUSE NEGATIVE (Negative)
[2024-03-18] MEDS: Lactated Ringers 1,000 ML 999 ML IV (10:19)
--- NOTE | 2024-03-18 11:25 | P.HPHOSP_ITS ---
History of Present Illness Date of Service: 03/18/24 Chief Complaint: leg redness and pain A 73-year-old morbidly obese female with a history of hypertension, [id number] diabetes, and AFib on Apixaban, among other conditions, presents with a 1-month history of progressive redness and scabs on her leg, primarily on the left side, possibly starting from a scratch. She reports pain as the reason for her visit today, with no fever or chills. Lactic acid is 2.6, WBC is normal, and no imaging has been performed. She was given Cefepime and Vancomycin in the ED. Review of Systems 2 Review of Systems: Gen: no fever Resp: no sob, no cough CV: no chest, no TRIANA, no leg edema GI: No n/v, no abd pain MSK: redness and pain in the leg Neuro: No confusion [facility] Medical History Abuse of non-prescription analgesics Type 2 diabetes mellitus with unspecified complications Other and unspecified hyperlipidemia Essential hypertension Atherosclerotic cardiovascular disease Urgency incontinence Osteoporosis Arthritis Asthma Hypertension Fibromyalgia Diabetes mellitus Surgical History History of hernia repair Social History Household Members: Children Housing: Apartment Do you presently have visiting nurse or other home services: Yes Unable to assess alcohol history related to: Refusing to respond Alcohol intake: never 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 Patient Tobacco Use Status: Never used Tobacco Smoked in Last 30 Days: Yes Advance Directives: No Advance Directives Information Provided: Yes Do you have a plan to hurt others: No Plan service: No Sexual orientation: Straight/Heterosexual Meds Allergies Allergy/AdvReac Type Severity Reaction Status Date / Time codeine [CODEINE] Allergy Intermediate HALLUCINATI Verified 03/18/24 08:33 ONS Home Medications ?Medication ?Instructions ?Recorded ?Confirmed ?Last Taken ?Type calcium carbonate (Oyster Shell 1 tab PO BID 07/22/20 03/18/24 03/18/24 09:00 History Calcium 500) glipizide 5 mg tablet, extended 1 tab PO DAILY 07/22/20 03/18/24 03/18/24 09:00 History release 24 hr insulin glargine 100 unit/mL 65 unit subcut BEDTIME 07/22/20 03/18/24 Unknown History subcutaneous solution (Lantus U-100 Insulin) amlodipine 10 mg tablet 10 mg PO DAILY 04/07/21 03/18/24 03/18/24 09:00 History atorvastatin 80 mg tablet 80 mg PO BEDTIME 04/07/21 03/18/24 10/24/23 20:00 History metformin 1,000 mg tablet 1,000 mg PO BID 04/07/21 03/18/24 03/18/24 09:00 History dapagliflozin propanediol 10 mg 10 mg PO DAILY 10/25/23 03/18/24 03/18/24 09:00 History tablet (Farxiga) levothyroxine 50 mcg tablet 50 mcg PO DAILY@0600 11/18/23 03/18/24 03/18/24 06:00 History duloxetine 20 mg capsule,delayed 20 mg PO DAILY 03/18/24 03/18/24 03/18/24 09:00 History release furosemide 20 mg tablet (Lasix) 40 mg PO DAILY 03/18/24 03/18/24 03/18/24 09:00 History hydroxyzine HCl 25 mg tablet 25 mg PO Q8H PRN anxiety 03/18/24 03/18/24 Unknown History metoprolol succinate 50 mg 50 mg PO DAILY 03/18/24 03/18/24 03/18/24 09:00 History tablet,extended release 24 hr omeprazole 40 mg capsule,delayed 40 mg PO DAILY@0630 03/18/24 03/18/24 03/18/24 07:00 History release oxycodone-acetaminophen 5 mg-325 1 tab PO Q6H PRN severe pain 03/18/24 03/18/24 Unknown History mg tablet paroxetine HCl 40 mg tablet 30 mg PO DAILY 03/18/24 03/18/24 03/18/24 09:00 History trazodone 150 mg tablet 150 mg PO BEDTIME 03/18/24 03/18/24 Unknown History triamcinolone acetonide 0.1 % 1 appl topical BID 03/18/24 03/18/24 03/18/24 09:00 History topical cream Physical Exam 2 Vital Signs and Narrative: Vital Signs: Last Vital Signs Temp 101.5 F H 03/18/24 08:57 Pulse 67 03/18/24 10:00 Resp 16 03/18/24 10:00 BP 114/53 L 03/18/24 10:00 Pulse Ox 96 03/18/24 08:33 O2 Del Method Nasal Cannula 03/18/24 10:00 O2 Flow Rate 2 03/18/24 10:00 BMI result Body Mass Index 45.3 Constitutional: Alert, in no distress, overweight. Mental Status: Oriented to person, place and time. Eyes: Pupils are equal, round and reactive to light. Ear, Nose and Throat: Oropharynx clear, mucous membranes moist. Ears and nose without eformities. Trachea midline. Respiratory: Clear to auscultation. No wheezing, rales or rhonchi. Cardiovascular: S1 S2 regular. No murmurs, rubs or gallops. Gastrointestinal: Abdomen soft, non-tender, non-distended. Normal bowel sounds.? Neurologic: Cranial nerves II-XII grossly intact. No focal neurological deficits. Moves all extremities spontaneously.? Skin: Musculoskeletal: No cyanosis or clubbing. Psychiatric: Normal mood and affect? Results Labs 03/18/24 09:27 03/18/24 09:28 Labs: Laboratory Results - last 24 hr 03/18/24 03/18/24 03/18/24 09:25 09:26 09:27 MCV 83.8 MCH 26.8 L MCHC 31.9 RDW 15.8 Plt Count 197 MPV 9.9 Immature Gran % (Auto) 0.5 H Neut % (Auto) 75.9 H Lymph % (Auto) 10.5 L [place] % (Auto) 11.0 Eos % (Auto) 1.7 Baso % (Auto) 0.4 Lymph # (Auto) 1.0 L [place] # (Auto) 1.1 Eos # (Auto) 0.2 Baso # (Auto) 0.0 Abs Immat Gran (auto) 0.05 H Absolute Neuts (auto) 7.6 Absolute Nucleated RBC 0.000 Nucleated RBC % (auto) 0.0 ESR 39 H Anion Gap Estim Creat Clear Calc Estimated GFR Random Glucose Lactic Acid 2.6 H* Calcium Magnesium Total Bilirubin Direct Bilirubin AST ALT Alkaline Phosphatase Troponin I High Sens 7.2 C-Reactive Protein B-Natriuretic Peptide 139 H Total Protein Albumin Lipase Influenza Type A (PCR) NEGATIVE Influenza Type B (PCR) NEGATIVE RSV RNA Qual (PCR) NEGATIVE SARS-CoV-2 RNA (RT-PCR) NEGATIVE 03/18/24 09:28 MCV MCH MCHC RDW Plt Count MPV Immature Gran % (Auto) Neut % (Auto) Lymph % (Auto) [place] % (Auto) Eos % (Auto) Baso % (Auto) Lymph # (Auto) [place] # (Auto) Eos # (Auto) Baso # (Auto) Abs Immat Gran (auto) Absolute Neuts (auto) Absolute Nucleated RBC Nucleated RBC % (auto) ESR Anion Gap 13 Estim Creat Clear Calc 45.6 Estimated GFR 41 Random Glucose 133 H Lactic Acid Calcium 8.6 Magnesium 1.8 Total Bilirubin 0.4 Direct Bilirubin 0.2 AST 16 ALT 14 Alkaline Phosphatase 68 Troponin I High Sens C-Reactive Protein 5.50 H B-Natriuretic Peptide Total Protein 6.1 L Albumin 3.1 L Lipase 17 Influenza Type A (PCR) Influenza Type B (PCR) RSV RNA Qual (PCR) SARS-CoV-2 RNA (RT-PCR) Imaging Radiologist's Impressions: Impressions Chest X-Ray 03/18/24 09:36 IMPRESSION: 1. Slight elevation left hemidiaphragm. 2. Bilateral low lung volumes. 3. Interstitial prominence. Assessment and Plan (1) Cellulitis: Qualifiers: Laterality: left Site of cellulitis: extremity Site of cellulitis of extremity: lower extremity Qualified Code(s): L03.116 - Cellulitis of left lower limb Status: Acute Plan 73/F with DM, HTN, morobid obesity, AF on eliquis with here with purulent cellulitis of the leg Purulent Cellulitis of legs, L>>R -Cefepime + Vanco x1 -continue IV Vanco, add Ceftriaxone, Vanco to Doxy if no MRSA -get US of the legs Diabetes -Lantus + SSI, Farxiga, hold Metformin and Glipizide for now HTN--metoprolol, losartan, amlodipine Acute lactic acidosis--not related to sepsis, possible metformin? hold Chronic AFIB--rate controle -continue amio, metoprolol, eliquis HLD -lipitor CAD-stable -ASA, lipitor, metoprolol CKD 3--stable chronic HFpEF, EF 65 to 70 in 2022. Euvolemic -Lasix Hypothyroidism -Levothyroxine Mood disorder /Fibromyalgia--duloxetine, paroxetine, trazadone Class III obesity- exercise, caloric restriction DVT prophylaxis--eliquis Full code at least 2 midnights stay for Cellulitis covering> 50% of lower leg, at ris for sepsis and in my opinion needs IV Abx Quality Stroke Does the patient have a stroke diagnosis?: No VTE Prior VTE?: No VTE Risk Level:: Medical - moderate - high VTE Device Contraindication: Procedure Contraindicated VTE Drug Contraindication: N/A - Med Ordered
[2024-03-18 11:26] LABS: Glucose, Whole Blood 132 mg/dL (60-115)
[2024-03-18 11:32] LABS: Reflex Lactate? Lactic Acid Added
--- NOTE | 2024-03-18 12:21 | PHA.PROG ---
Admission Date/Time: March 18, 2024 12:10 Indication: skin Weight in k.3 kg Adjusted body weight in Kg: [place] body weight in Kg: Obesity Dosing Indication % IBW: Serum Creatinine - Last 168 Hours 03/18/24 09:28 Creatinine 1.28 Estimated CrCl and GFR - Last 168 Hours 03/18/24 09:28 Estim Creat Clear Calc 45.6 Estimated GFR 41 Vancomycin Loading Dose: 2000mg x 1 Current Vancomycin Dosing Regimen: 1000mg Q24H Vancomycin Monitoring using AUC goal of 400 - 600 range with trough as surrogate marker: 521 mg/L Date and Time for next Vancomycin Level to be drawn: 03/20/24 @0900 Pharmacist Comments on Vancomycin Plan: obese model being used; predicted trough of 16mg/L Vancomycin dosing will take advantage of [employer] as a clinical decision support tool that uses Bayesian modeling to calculate individual patient's pharmacokinetic parameters and forecast the patient's drug concentration time course with the target goal AUC 24 range of 400 - 600 mg/L/hr.
[2024-03-18 12:42] LABS: ~Lactic Acid-LAB USE ONLY 2.4 mmol/L (0.5-2.0)
[2024-03-18] MEDS: oxyCODONE HCl Immed Release 5 MG TABLET PO (13:02)
[2024-03-18] MEDS: cefTRIAXone sodium 1 GM in 0.9 % Sodium Chloride 50 ML IV (13:20)
[2024-03-18 14:22] LABS: Reflex Lactate? 2 Y
[2024-03-18 15:10] LABS: Cancel Lactic Acid Canceled
--- NOTE | 2024-03-18 16:00 | PHA.MEDREC ---
Pharmacy Consult ? Medication Reconciliation Pharmacy has completed the medication reconciliation. Called [facility] ([phone] - Pt's primary visiting nurse) to confirm meds.
[2024-03-18] MEDS: 0.9 % Sodium Chloride Flush 3 ML SYRINGE IVFLUSH (16:25)
--- NOTE | 2024-03-18 16:30 | PC.NURSE ---
Daughter at bedside and expresses concerns for continuity of care. States Pt needs more assistance at home for ADLs and wound care. Referrals made in the past but there was no follow though. She would like to be sure that medical staff and family have the same plan of care for the Pt.
[2024-03-18] MEDS: Insulin Lispro 100 UNIT/ML 3 ML VIAL SUBCUT (17:51)
[2024-03-18] MEDS: Acetaminophen 325 MG TABLET 650 MG PO (18:25)
[2024-03-18] MEDS: Insulin Glargine,Hum.rec.anlog 100 UNIT/ML 10 ML VIAL 45 UNIT SUBCUT (21:19)
[2024-03-18] MEDS: Atorvastatin Calcium 80 MG TABLET PO (21:20)
[2024-03-18] MEDS: Aspirin Enteric Coated 81 MG TABLET.DR PO (21:20)
[2024-03-18] MEDS: Calcium Oyster Shell Elemental 500 MG TABLET PO (21:20)
[2024-03-18] MEDS: Triamcinolone Acet 0.1 % Cream 15 GM TUBE 1 APPL TOPICAL (21:21)
[2024-03-18] MEDS: Apixaban 5 MG TABLET PO (21:21)
[2024-03-18] MEDS: traZODone HCL 50 MG TABLET 150 MG PO (21:24)
[2024-03-18 21:59] LABS: Appearance Urine Clear; Color Urine Yellow; Glucose Urine UA >=1000 mg/dL (Negative); Leukocyte Esterase Urine Moderate (2+) (Negative); Nitrite Urine Negative (Negative); PH 6.5 (5.0-9.0); Specific Gravity - Urine 1.015 (1.005-1.025); UMIC TRIGGER UACC YES; Urine Blood Negative (Negative); Urine Ketones Negative (Negative); Urine Protein Trace mg/dL (Neg-Trace)
[2024-03-18 22:04] LABS: Bacteria Urine None Seen (None Seen); Hyaline Casts Urine 0-2 /LPF (0-2); RBC Urine 0-2 /HPF (0-2); Squamous Epithelial Cell Urine 0-2 /HPF (0-2); UACC Culture Trigger YES; WBC Urine 21-50 /HPF (0-5)
[2024-03-19] MEDS: oxyCODONE HCl Immed Release 5 MG TABLET PO ×3 (02:22→15:39)
[2024-03-19] MEDS: Morphine Sulfate 2 MG/ML CARTRIDGE IVPUSH (03:20)
[2024-03-19 04:00] VITALS: BP 154/70; PULSE 63; RESP 16; TEMP 36.2; O2SAT 97
[2024-03-19] MEDS: Levothyroxine Sodium 50 MCG TABLET PO (05:16)
[2024-03-19] MEDS: Omeprazole 40 MG CAPSULE.DR PO (05:16)
[2024-03-19 07:04] LABS: Hematocrit 30.6 % (37.0-47.0); Hemoglobin 9.2 g/dl (12.0-16.0); Mean Corpuscular HGB Conc 30.1 g/dl (31.0-35.0); Mean Corpuscular Hemoglobin 25.7 pg (27.0-33.0); Mean Corpuscular Volume 85.5 fL (80.0-98.0); Mean Platelet Volume 10.4 fL (9.4-12.3); Platelet Count 193 X10*3/uL (160-400); Red Blood Count 3.58 X10*6/uL (4.20-5.50); Red Cell Distribution Width 15.9 % (11.0-16.0); White Blood Count 7.6 X10*3/uL (4.8-10.8)
[2024-03-19 07:14] LABS: Creatinine Clr Calc Pharmacy 40.8; Estimated Glomerular Filt Rate 36
[2024-03-19 07:37] VITALS: BP 144/68; PULSE 63; RESP 16; TEMP 36; O2SAT 96
[2024-03-19 09:05] VITALS: BP 144/68
[2024-03-19] MEDS: Losartan Potassium 50 MG TABLET PO (09:05)
[2024-03-19] MEDS: Furosemide 40 MG TABLET PO (09:05)
[2024-03-19] MEDS: Amiodarone HCL 200 MG TABLET PO (09:05)
[2024-03-19] MEDS: DULoxetine HCl 20 MG CAPSULE.DR PO (09:05)
[2024-03-19] MEDS: Apixaban 5 MG TABLET PO ×2 (09:06→20:52)
[2024-03-19] MEDS: 0.9 % Sodium Chloride Flush 3 ML SYRINGE IVFLUSH ×2 (09:06→15:39)
[2024-03-19] MEDS: Metoprolol Succinate ER 50 MG TAB.ER.24H PO (09:06)
[2024-03-19] MEDS: Calcium Oyster Shell Elemental 500 MG TABLET PO ×2 (09:06→20:51)
[2024-03-19] MEDS: PARoxetine HCL 30 MG TABLET PO (09:06)
[2024-03-19] MEDS: amLODIPine Besylate 10 MG TABLET PO (09:06)
[2024-03-19] MEDS: Empagliflozin 10 MG TABLET PO (09:06)
[2024-03-19] MEDS: Triamcinolone Acet 0.1 % Cream 15 GM TUBE 1 APPL TOPICAL ×2 (09:52→20:52)
[2024-03-19] MEDS: vancomycin HCL 1,000 MG in 0.9 % Sodium Chloride 250 ML 270 MG IV (11:37)
--- NOTE | 2024-03-19 13:08 | P.PNIM_ITS ---
Subjective Subjective Date of Service: 03/19/24 Interval History: This history was taken in Turkmen from the patient. c/o L>R leg pain no fever since 101.5 yesterday morning Review of Systems Review of Systems: Yes all other systems are reviewed and are negative Physical Exam 2 Vital Signs: Vital Signs: Last Vital Signs Temp 96.8 F 03/19/24 07:37 Pulse 63 03/19/24 07:37 Resp 16 03/19/24 07:37 BP 144/68 H 03/19/24 09:05 Pulse Ox 96 03/19/24 07:37 O2 Del Method Room Air 03/19/24 07:37 O2 Flow Rate 2 03/19/24 04:00 BMI result Body Mass Index 45.3 Gen: in no acute distress HEENT: sclera anicteric, moist mucus membranes Neck: supple Lungs: clear to auscultation bilaterally Heart: regular rate and rhythm, no murmurs Abd: soft, non-tender, morbidly obese Ext: no edema Skin: redness + swelling around middle of L lower leg, smaller area of medial redness R lower leg, no purulence Neuro: alert and oriented x3, no focal findings Psych: appropriate affect Objective Data Active Medications Acetaminophen (Acetaminophen 325 Mg Tablet) 650 mg PO Q6H PRN PRN Reason: Pain, Mild (Pain Scale 1-3), fever or headache Last Admin: 03/18/24 18:25 Dose: 650 mg Documented By: AFSHIN Amiodarone HCl (Amiodarone Hcl 200 Mg Tablet) 200 mg PO DAILY [facility] Last Admin: 03/19/24 09:05 Dose: 200 mg Documented By: AFSHIN Amlodipine Besylate (Amlodipine Besylate 10 Mg Tablet) 10 mg PO DAILY [facility]; Protocol Last Admin: 03/19/24 09:06 Dose: 10 mg Documented By: AFSHIN Apixaban (Apixaban 5 Mg Tablet) 5 mg PO BID [facility] Last Admin: 03/19/24 09:06 Dose: 5 mg Documented By: AFSHIN Aspirin (Aspirin Enteric Coated 81 Mg Tablet.) 81 mg PO BEDTIME [facility] Last Admin: 03/18/24 21:20 Dose: 81 mg Documented By: KATRINA Atorvastatin Calcium (Atorvastatin Calcium 80 Mg Tablet) 80 mg PO BEDTIME [facility] Last Admin: 03/18/24 21:20 Dose: 80 mg Documented By: KATRINA Calcium Carbonate (Calcium Carbonate 750 Mg Tab.Chew) 750 mg PO Q4H PRN PRN Reason: Heartburn Calcium Carbonate (Calcium Oyster Shell Elemental 500 Mg Tablet) 500 mg PO BID [facility] Last Admin: 03/19/24 09:06 Dose: 500 mg Documented By: AFSHIN Duloxetine HCl (Duloxetine Hcl 20 Mg Capsule.Dr) 20 mg PO DAILY [facility] Last Admin: 03/19/24 09:05 Dose: 20 mg Documented By: AFSHIN Empagliflozin (Empagliflozin 10 Mg Tablet) 10 mg PO DAILY [facility] Last Admin: 03/19/24 09:06 Dose: 10 mg Documented By: AFSHIN Furosemide (Furosemide 40 Mg Tablet) 40 mg PO DAILY [facility]; Protocol Last Admin: 03/19/24 09:05 Dose: 40 mg Documented By: AFSHIN Glucose (Glucose Gel 15 Gm Gel..Gram.) 15 gm PO Q15M PRN; Protocol PRN Reason: per Hypoglycemia Standing Ord. Hydroxyzine HCl (Hydroxyzine Hcl 25 Mg Tablet) 25 mg PO Q8H PRN PRN Reason: anxiety Dextrose (D10) 250 mls @ 750 mls/hr IV Q15M PRN; Protocol PRN Reason: per Hypoglycemia Standing Ord. Ceftriaxone Sodium 1 gm/ (Sodium Chloride) 50 mls @ 100 mls/hr IV Q24H [facility] Last Infusion: 03/18/24 14:02 Dose: Infused Documented By: JANA Vancomycin HCl 1,000 mg/ (Sodium Chloride) 270 mls @ 270 mls/hr IV Q24H [facility] Last Infusion: 03/19/24 12:46 Dose: Infused Documented By: AFSHIN Insulin Glargine (Insulin Glargine,Hum.Rec.Anlog 100 Unit/Ml 10 Ml Vial) 45 unit SUBCUT BEDTIME [facility] Last Admin: 03/18/24 21:19 Dose: 45 unit Documented By: KATRINA Insulin Human Lispro (Insulin Lispro 100 Unit/Ml 3 Ml Vial) 0 unit SUBCUT QIDACHS [facility]; Protocol Last Admin: 03/19/24 11:37 Dose: Not Given Documented By: AFSHIN Non-Admin Reason: No Insulin Coverage Levothyroxine Sodium (Levothyroxine Sodium 50 Mcg Tablet) 50 mcg PO DAILY@0600 [facility] Last Admin: 03/19/24 05:16 Dose: 50 mcg Documented By: KATRINA Losartan Potassium (Losartan Potassium 50 Mg Tablet) 50 mg PO DAILY [facility]; Protocol Last Admin: 03/19/24 09:05 Dose: 50 mg Documented By: AFSHIN Magnesium Hydroxide (Milk Of Magnesia 30 Ml Oral.Susp) 30 ml PO DAILY PRN PRN Reason: Constipation Melatonin (Melatonin 3 Mg Tablet) 6 mg PO BEDTIME PRN PRN Reason: Insomnia Metoprolol Succinate (Metoprolol Succinate Er 50 Mg Tab.Er.24h) 50 mg PO DAILY [facility]; Protocol Last Admin: 03/19/24 09:06 Dose: 50 mg Documented By: AFSHIN Omeprazole (Omeprazole 40 Mg Capsule.Dr) 40 mg PO DAILY@0630 [facility] Last Admin: 03/19/24 05:16 Dose: 40 mg Documented By: KATRINA Ondansetron HCl (Ondansetron Hcl 4 Mg/2 Ml Vial) 4 mg IVPUSH Q8H PRN PRN Reason: Nausea and Vomiting Oxycodone HCl (Oxycodone Hcl Immed Release 5 Mg Tablet) 5 mg PO Q6H PRN PRN Reason: Pain, Severe (Pain Scale 7-10) Last Admin: 03/19/24 09:32 Dose: 5 mg Documented By: SANDRA Paroxetine HCl (Paroxetine Hcl 30 Mg Tablet) 30 mg PO DAILY [facility] Last Admin: 03/19/24 09:06 Dose: 30 mg Documented By: AFSHIN Pharmacy Consult (Consult Rx Vancomycin Dosing) 1 each MISCELLANE DAILY PRN PRN Reason: Consult order Polyethylene Glycol (Polyethylene Glycol 3350 17 Gm Powd.Pack) 17 gm PO DAILY PRN PRN Reason: Constipation Sodium Chloride (0.9 % Sodium Chloride Flush 3 Ml Syringe) 3 ml IVFLUSH QSHIFT [facility] Last Admin: 03/19/24 09:06 Dose: 3 ml Documented By: AFSHIN Trazodone HCl (Trazodone Hcl 50 Mg Tablet) 150 mg PO BEDTIME [facility] Last Admin: 03/18/24 21:24 Dose: 150 mg Documented By: KATRINA Triamcinolone Acetonide (Triamcinolone Acet 0.1 % Cream 15 Gm Tube) 1 appl TOPICAL BID [facility]; Protocol Last Admin: 03/19/24 09:52 Dose: 1 appl Documented By: AFSHIN Labs 03/19/24 05:55 03/19/24 05:55 Labs: Laboratory Results - last 24 hr 03/18/24 03/19/24 21:48 05:55 MCV 85.5 MCH 25.7 L MCHC 30.1 L RDW 15.9 Plt Count 193 MPV 10.4 Absolute Nucleated RBC 0.000 Nucleated RBC % (auto) 0.0 Estim Creat Clear Calc 40.8 Estimated GFR 36 Urine Color Yellow Urine Appearance Clear Urine pH 6.5 Ur Specific [place] 1.015 Urine Protein Trace Urine Glucose (UA) >=1000 H Urine Ketones Negative Urine Blood Negative Urine Nitrite Negative Ur Leukocyte Esterase Moderate (2+) H Urine RBC 0-2 Urine WBC 21-50 H Ur Squamous Epith Cells 0-2 Urine Bacteria None Seen Hyaline Casts 0-2 Microbiology Microbiology Results: Microbiology 03/18/24 09:27 Blood Culture - Preliminary Blood - Venous No growth after 24 hours. 03/18/24 09:16 Blood Culture - Preliminary Blood - Venous No growth after 24 hours. Assessment and Plan (1) Cellulitis: Status: Acute Assessment and Plan: d2 73yo F with DM, HTN, morbid obesity, AF on apixaban presenting with cellulitis of L>R leg cellulitis - vancomycin 03/18-, ceftriaxone 03/18-, follow BCx, no DVT on US lactic acidosis - likely due to MTF, not septic CKD3 - SCr at baseline DM2 - hold MTF + GPZ, give basal-bolus insulin + Jardiance HTN - continue metoprolol succinate + losartan + amlodipine chronic AF - continue amiodarone + metoprolol succinate, apixaban CAD - continue atorvastatin + metoprolol succinate + ASA chronic HFpEF - continue furosemide, metoprolol mood disorder/fibromyalgia - continue duloxetine + paroxetine + trazodone hypothyroidism - continue LT4 ANILA -CPAP at night morbid obesity - diet/exercise counseling VTE ppx - apixaban dispo - PT eval In my clinical judgment, the patient requires continued inpatient hospitalization for the following reasons: IV ABX Total time managing care of this patient today: 40 minutes. Quality Stroke Does the patient have a stroke diagnosis?: No VTE Prior VTE?: No VTE Risk Level:: Medical - moderate - high VTE Device Contraindication: Procedure Contraindicated VTE Drug Contraindication: N/A - Med Ordered
[2024-03-19] MEDS: cefTRIAXone sodium 1 GM in 0.9 % Sodium Chloride 50 ML IV (13:50)
[2024-03-19 15:27] VITALS: BP 133/63; PULSE 62; RESP 18; TEMP 36.1; O2SAT 97
[2024-03-19 19:54] VITALS: BP 122/59; PULSE 63; RESP 18; TEMP 36.6; O2SAT 100
[2024-03-19] MEDS: traZODone HCL 50 MG TABLET 150 MG PO (20:51)
[2024-03-19] MEDS: Insulin Glargine,Hum.rec.anlog 100 UNIT/ML 10 ML VIAL 45 UNIT SUBCUT (20:51)
[2024-03-19] MEDS: Atorvastatin Calcium 80 MG TABLET PO (20:52)
[2024-03-19] MEDS: Aspirin Enteric Coated 81 MG TABLET.DR PO (20:52)
[2024-03-19 21:43] VITALS: PULSE 60; RESP 15; O2SAT 92
[2024-03-19] MEDS: Insulin Lispro 100 UNIT/ML 3 ML VIAL SUBCUT (22:06)
[2024-03-20 04:00] VITALS: BP 137/63; PULSE 59; RESP 20; TEMP 36.4; O2SAT 98
[2024-03-20] MEDS: oxyCODONE HCl Immed Release 5 MG TABLET PO ×2 (05:48→16:56)
[2024-03-20] MEDS: Levothyroxine Sodium 50 MCG TABLET PO (05:48)
[2024-03-20] MEDS: Omeprazole 40 MG CAPSULE.DR PO (05:48)
[2024-03-20 07:51] VITALS: BP 113/56; PULSE 59; O2SAT 95
[2024-03-20 08:00] VITALS: BP 113/56; PULSE 59; RESP 18; TEMP 37; O2SAT 95
[2024-03-20 08:03] LABS: Anion Gap 12 (12-20); Blood Urea Nitrogen 23 mg/dL (9-16); C Reactive Protein 9.17 mg/dL (< or = 0.50); Calcium 8.6 mg/dL (8.4-10.2); Carbon Dioxide 33 mmol/L (22-29); Chloride 99 mmol/L (96-108); Creatinine Clr Calc Pharmacy 38.2; Estimated Glomerular Filt Rate 33; Glucose Random 107 mg/dL (60-115); Potassium 4.7 mmol/L (3.3-5.1); Sodium 139 mmol/L (135-145)
[2024-03-20] MEDS: Metoprolol Succinate ER 50 MG TAB.ER.24H PO (08:23)
[2024-03-20] MEDS: DULoxetine HCl 20 MG CAPSULE.DR PO (08:23)
[2024-03-20] MEDS: Apixaban 5 MG TABLET PO ×2 (08:23→21:18)
[2024-03-20] MEDS: Calcium Oyster Shell Elemental 500 MG TABLET PO ×2 (08:23→21:18)
[2024-03-20] MEDS: Empagliflozin 10 MG TABLET PO (08:23)
[2024-03-20] MEDS: amLODIPine Besylate 10 MG TABLET PO (08:24)
[2024-03-20] MEDS: PARoxetine HCL 30 MG TABLET PO (08:24)
[2024-03-20] MEDS: Amiodarone HCL 200 MG TABLET PO (08:24)
[2024-03-20] MEDS: 0.9 % Sodium Chloride Flush 3 ML SYRINGE IVFLUSH (08:25)
[2024-03-20] MEDS: Furosemide 40 MG TABLET PO (08:30)
[2024-03-20] MEDS: 0.9 % Sodium Chloride 1,000 ML 100 ML IVCONT ×2 (08:30→23:02)
[2024-03-20] MEDS: Triamcinolone Acet 0.1 % Cream 15 GM TUBE 1 APPL TOPICAL ×2 (08:33→21:23)
[2024-03-20 08:47] LABS: Glucose, Whole Blood 183 mg/dL (60-115)
--- NOTE | 2024-03-20 10:10 | HO.PM.IMPN ---
Subjective Subjective Date of Service: 03/20/24 Interval History: This history was taken in Portuguese from the patient. Redness/pain of legs improving; afebrile since am 03/18. Review of Systems Review of Systems: Yes all other systems are reviewed and are negative Physical Exam Vital Signs: Vital Signs: Last Vital Signs Temp 98.6 F 03/20/24 08:00 Pulse 59 03/20/24 08:00 Resp 18 03/20/24 08:00 BP 113/56 L 03/20/24 08:00 Pulse Ox 95 03/20/24 08:00 O2 Del Method Nasal Cannula 03/20/24 08:00 O2 Flow Rate 2 03/20/24 08:00 BMI result Body Mass Index 45.3 Gen: in no acute distress HEENT: sclera anicteric, moist mucus membranes Neck: supple Lungs: clear to auscultation bilaterally Heart: regular rate and rhythm, no murmurs Abd: soft, non-tender, morbidly obese Ext: no edema Skin: redness + swelling around middle of L lower leg improved from yesterday, smaller area of medial redness R lower leg, no purulence Neuro: alert and oriented x3, no focal findings Psych: appropriate affect Objective Data Active Medications Acetaminophen (Acetaminophen 325 Mg Tablet) 650 mg PO Q6H PRN PRN Reason: Pain, Mild (Pain Scale 1-3), fever or headache Last Admin: 03/18/24 18:25 Dose: 650 mg Documented By: AFSHIN Amiodarone HCl (Amiodarone Hcl 200 Mg Tablet) 200 mg PO DAILY [facility] Last Admin: 03/20/24 08:24 Dose: 200 mg Documented By: EVE Amlodipine Besylate (Amlodipine Besylate 10 Mg Tablet) 10 mg PO DAILY [facility]; Protocol Last Admin: 03/20/24 08:24 Dose: 10 mg Documented By: EVE Apixaban (Apixaban 5 Mg Tablet) 5 mg PO BID [facility] Last Admin: 03/20/24 08:23 Dose: 5 mg Documented By: EVE Aspirin (Aspirin Enteric Coated 81 Mg Tablet.) 81 mg PO BEDTIME [facility] Last Admin: 03/19/24 20:52 Dose: 81 mg Documented By: KATRINA Atorvastatin Calcium (Atorvastatin Calcium 80 Mg Tablet) 80 mg PO BEDTIME [facility] Last Admin: 03/19/24 20:52 Dose: 80 mg Documented By: KATRINA Calcium Carbonate (Calcium Carbonate 750 Mg Tab.Chew) 750 mg PO Q4H PRN PRN Reason: Heartburn Calcium Carbonate (Calcium Oyster Shell Elemental 500 Mg Tablet) 500 mg PO BID [facility] Last Admin: 03/20/24 08:23 Dose: 500 mg Documented By: EVE Duloxetine HCl (Duloxetine Hcl 20 Mg Capsule.Dr) 20 mg PO DAILY [facility] Last Admin: 03/20/24 08:23 Dose: 20 mg Documented By: EVE Empagliflozin (Empagliflozin 10 Mg Tablet) 10 mg PO DAILY [facility] Last Admin: 03/20/24 08:23 Dose: 10 mg Documented By: EVE Furosemide (Furosemide 40 Mg Tablet) 40 mg PO DAILY [facility]; Protocol Last Admin: 03/20/24 08:30 Dose: 40 mg Documented By: EVE Glucose (Glucose Gel 15 Gm Gel..Gram.) 15 gm PO Q15M PRN; Protocol PRN Reason: per Hypoglycemia Standing Ord. Hydroxyzine HCl (Hydroxyzine Hcl 25 Mg Tablet) 25 mg PO Q8H PRN PRN Reason: anxiety Dextrose (D10) 250 mls @ 750 mls/hr IV Q15M PRN; Protocol PRN Reason: per Hypoglycemia Standing Ord. Ceftriaxone Sodium 1 gm/ (Sodium Chloride) 50 mls @ 100 mls/hr IV Q24H [facility] Last Infusion: 03/19/24 14:24 Dose: Infused Documented By: AFSHIN Vancomycin HCl 1,000 mg/ (Sodium Chloride) 270 mls @ 270 mls/hr IV Q24H [facility] Last Infusion: 03/19/24 12:46 Dose: Infused Documented By: AFSHIN Sodium Chloride (Ns) 1,000 mls @ 100 mls/hr IVCONT .Q10H [facility] Last Admin: 03/20/24 08:30 Dose: 100 mls/hr Documented By: EVE Insulin Glargine (Insulin Glargine,Hum.Rec.Anlog 100 Unit/Ml 10 Ml Vial) 45 unit SUBCUT BEDTIME [facility] Last Admin: 03/19/24 20:51 Dose: 1 unit Documented By: KATRINA Insulin Human Lispro (Insulin Lispro 100 Unit/Ml 3 Ml Vial) 0 unit SUBCUT QIDACHS [facility]; Protocol Last Admin: 03/20/24 08:19 Dose: Not Given Documented By: EVE Non-Admin Reason: No Insulin Coverage Levothyroxine Sodium (Levothyroxine Sodium 50 Mcg Tablet) 50 mcg PO DAILY@0600 [facility] Last Admin: 03/20/24 05:48 Dose: 50 mcg Documented By: KATRINA Losartan Potassium (Losartan Potassium 50 Mg Tablet) 50 mg PO DAILY [facility]; Protocol Last Admin: 03/19/24 09:05 Dose: 50 mg Documented By: AFSHIN Magnesium Hydroxide (Milk Of Magnesia 30 Ml Oral.Susp) 30 ml PO DAILY PRN PRN Reason: Constipation Melatonin (Melatonin 3 Mg Tablet) 6 mg PO BEDTIME PRN PRN Reason: Insomnia Metoprolol Succinate (Metoprolol Succinate Er 50 Mg Tab.Er.24h) 50 mg PO DAILY [facility]; Protocol Last Admin: 03/20/24 08:23 Dose: 50 mg Documented By: EVE Omeprazole (Omeprazole 40 Mg Capsule.Dr) 40 mg PO DAILY@0630 [facility] Last Admin: 03/20/24 05:48 Dose: 40 mg Documented By: KATRINA Ondansetron HCl (Ondansetron Hcl 4 Mg/2 Ml Vial) 4 mg IVPUSH Q8H PRN PRN Reason: Nausea and Vomiting Oxycodone HCl (Oxycodone Hcl Immed Release 5 Mg Tablet) 5 mg PO Q6H PRN PRN Reason: Pain, Severe (Pain Scale 7-10) Last Admin: 03/20/24 05:48 Dose: 5 mg Documented By: KATRINA Paroxetine HCl (Paroxetine Hcl 30 Mg Tablet) 30 mg PO DAILY [facility] Last Admin: 03/20/24 08:24 Dose: 30 mg Documented By: EVE Pharmacy Consult (Consult Rx Vancomycin Dosing) 1 each MISCELLANE DAILY PRN PRN Reason: Consult order Polyethylene Glycol (Polyethylene Glycol 3350 17 Gm Powd.Pack) 17 gm PO DAILY PRN PRN Reason: Constipation Sodium Chloride (0.9 % Sodium Chloride Flush 3 Ml Syringe) [facility] Last Admin: 03/20/24 08:25 Dose: 3 ml Documented By: EVE Trazodone HCl (Trazodone Hcl 50 Mg Tablet) 150 mg PO BEDTIME [facility] Last Admin: 03/19/24 20:51 Dose: 150 mg Documented By: KATRINA Triamcinolone Acetonide (Triamcinolone Acet 0.1 % Cream 15 Gm Tube) 1 appl TOPICAL BID [facility]; Protocol Last Admin: 03/20/24 08:33 Dose: 1 appl Documented By: EVE Labs 03/19/24 05:55 03/20/24 05:31 Labs: Laboratory Results - last 24 hr 03/18/24 03/20/24 17:48 05:31 Anion Gap 12 Estim Creat Clear Calc 38.2 Estimated GFR 33 POC Glucose 183 H Random Glucose 107 Calcium 8.6 C-Reactive Protein 9.17 H Microbiology Microbiology Results: Microbiology 03/18/24 22:40 Urine Culture - Final Urine clean catch - Clean Catch Midstream No growth. 03/18/24 09:27 Blood Culture - Preliminary Blood - Venous No growth after 24 hours. 03/18/24 09:16 Blood Culture - Preliminary Blood - Venous No growth after 24 hours. Assessment and Plan (1) Cellulitis: Status: Acute Assessment and Plan: d3 73yo F with DM, HTN, morbid obesity, AF on apixaban presenting with cellulitis of L>R leg cellulitis - vancomycin 03/18-, ceftriaxone 03/18-, follow BCx, no DVT on US lactic acidosis - likely due to MTF, not septic CKD3 - SCr creeping up; will HOLD losartan + furosemide and give NS DM2 - hold MTF + GPZ, give basal-bolus insulin + Jardiance HTN - continue metoprolol succinate + amlodipine; losartan on hold chronic AF - continue amiodarone + metoprolol succinate, apixaban CAD - continue atorvastatin + metoprolol succinate + ASA chronic HFpEF - continue metoprolol; losartan on hold; HOLD furosemide mood disorder/fibromyalgia - continue duloxetine + paroxetine + trazodone hypothyroidism - continue LT4 ANILA -CPAP at night morbid obesity - diet/exercise counseling VTE ppx - apixaban dispo - PT eval: home with [facility] In my clinical judgment, the patient requires continued inpatient hospitalization for the following reasons: IV ABX Total time managing care of this patient today: 40 minutes. Quality Stroke Does the patient have a stroke diagnosis?: No VTE Prior VTE?: No VTE Risk Level:: Medical - moderate - high VTE Device Contraindication: Procedure Contraindicated VTE Drug Contraindication: N/A - Med Ordered
[2024-03-20 10:31] LABS: Vancomycin Random 12.3 mcg/mL (15-20)
--- NOTE | 2024-03-20 10:40 | HE.PHANOTE ---
RE VANCO TROUGH IS 12.3 BUT SEEING SLIGHT DECLINE IN RENAL FUNCTION. EXPECT AUC 547 AND TROUGH 17.8 WITH THIS DOSING SO WILL CONTINUE ON 1000 Q24.
[2024-03-20] MEDS: vancomycin HCL 1,000 MG in 0.9 % Sodium Chloride 250 ML 270 MG IV (10:58)
--- NOTE | 2024-03-20 11:15 | MHC.CLN ---
NUTRITION CONSULT FOR SKIN INTEGRITY. SKIN WITH BILATERAL LEG CELLULITIS. NO PRESSURE INJURIES. DIET=DIABETIC 1800 KCALS. NO ADDITIONAL NUTRITION INTERVENTIONS AT THIS TIME.
--- NOTE | 2024-03-20 11:37 | MHC.CM.PN ---
pt lives with her sister she hs 2 application integrator day and nigh she is active with [email or web address] she has her own ride home
[2024-03-20] MEDS: cefTRIAXone sodium 1 GM in 0.9 % Sodium Chloride 50 ML IV (13:28)
--- NOTE | 2024-03-20 14:51 | HO.WOUND ---
Wound Consult: Initial 73yr old?female admitted to [facility] on 03/18/24 - See progress notes and H&P for detailed history.? Wound consult placed for Bilateral Lower Leg wounds.? Patient agreeable to assessment and photo documentation.? Bilateral Lower Legs assessed see below. Etiology is unclear the patient does have history of Diabetes and evidence to suggest Vascular dissease such as Venous Dermatitis Stasis. She has evidence of swelling to the feet with thickened tissue and deep fissures from fluid removal. Both gaiter areas have wounds present and irregular pigmentation patterns noted. The patient should followup with Outpt wound clinic for wound healing and if needed Dr. Beth for vascular assessment and workup. Left Leg Left Medial Leg Right Leg Etiology: ?Unclear Etiology suspect Venous Dermatitis Present on Admission Wound Bed: dry stable scabbed vs eschar wound beds Drainage / Odor: None noted at the time of my consult Edges: ? Irregular Katya wound: ?Almond pigmentation some swelling with evidnece of previous significant swelling noted to both feet - No Induration, Fluctuance or Warmth noted Pain: patient reports pain Goals of Treatment: ? Betadine to keep eschars stable and legs to remains elevated for fluid management Recommendations: 1. Turn and Reposition every 2 hours and as needed for patient comfort.? Use pillows or wedges to support off loading positions. 2. Off Load all bony prominences with use of pillows and heel boots if needed.? Apply Preventative foams where needed. ? 3. Monitor for incontinence and moisture control, use barrier creams when needed for prevention and treatment. 4. Provide adequate and supplemental nutrition.? 5. Order or Continue low air loss mattress. 6. When applicable maintain blood glucose levels per Providers order. 7. Bilateral Lower Legs - Cleanse with Routien cleansing. [place] with Betadine allow to dry. Cover with dry gaue dressing. Change daily. Recommend follow up out patient Wound Clinic at [address] [place] [phone] and to call for an appointment at time of discharge. [phone].? Re-consult wound care Nurse for wound deterioration or wound changes.
[2024-03-20 15:18] VITALS: BP 125/66; PULSE 56; RESP 18; TEMP 36.1; O2SAT 98
[2024-03-20 15:45] LABS: Glucose, Whole Blood 169 mg/dL (60-115)
[2024-03-20 15:46] LABS: Glucose, Whole Blood 150 mg/dL (60-115)
[2024-03-20 15:47] LABS: Glucose, Whole Blood 144 mg/dL (60-115)
[2024-03-20 15:47] LABS: Glucose, Whole Blood 127 mg/dL (60-115)
[2024-03-20 15:48] LABS: Glucose, Whole Blood 165 mg/dL (60-115)
[2024-03-20 15:49] LABS: Glucose, Whole Blood 137 mg/dL (60-115)
[2024-03-20 15:49] LABS: Glucose, Whole Blood 153 mg/dL (60-115)
[2024-03-20 15:50] LABS: Glucose, Whole Blood 162 mg/dL (60-115)
[2024-03-20 15:51] LABS: Glucose, Whole Blood 109 mg/dL (60-115)
[2024-03-20 15:51] LABS: Glucose, Whole Blood 131 mg/dL (60-115)
[2024-03-20 15:59] LABS: Glucose, Whole Blood 103 mg/dL (60-115)
[2024-03-20 19:22] VITALS: BP 115/58; PULSE 62; RESP 18; TEMP 36.7; O2SAT 96
[2024-03-20] MEDS: Insulin Lispro 100 UNIT/ML 3 ML VIAL SUBCUT (21:18)
[2024-03-20] MEDS: Atorvastatin Calcium 80 MG TABLET PO (21:18)
[2024-03-20] MEDS: traZODone HCL 50 MG TABLET 150 MG PO (21:18)
[2024-03-20] MEDS: Aspirin Enteric Coated 81 MG TABLET.DR PO (21:18)
[2024-03-20] MEDS: Insulin Glargine,Hum.rec.anlog 100 UNIT/ML 10 ML VIAL 45 UNIT SUBCUT (21:19)
[2024-03-21] MEDS: oxyCODONE HCl Immed Release 5 MG TABLET PO (01:08)
[2024-03-21 03:49] VITALS: BP 132/66; PULSE 56; RESP 16; TEMP 36.3; O2SAT 99
[2024-03-21] MEDS: Omeprazole 40 MG CAPSULE.DR PO (05:40)
[2024-03-21] MEDS: Levothyroxine Sodium 50 MCG TABLET PO (05:40)
[2024-03-21 06:36] LABS: Anion Gap 13 (12-20); Blood Urea Nitrogen 26 mg/dL (9-16); Calcium 8.6 mg/dL (8.4-10.2); Carbon Dioxide 29 mmol/L (22-29); Chloride 101 mmol/L (96-108); Creatinine Clr Calc Pharmacy 38.7; Estimated Glomerular Filt Rate 34; Glucose Random 132 mg/dL (60-115); Potassium 4.5 mmol/L (3.3-5.1); Sodium 138 mmol/L (135-145)
[2024-03-21 07:14] VITALS: BP 138/63; PULSE 55; RESP 18; TEMP 36.5; O2SAT 99
[2024-03-21 08:38] LABS: Glucose, Whole Blood 187 mg/dL (60-115)
[2024-03-21 08:39] LABS: Glucose, Whole Blood 131 mg/dL (60-115)
[2024-03-21] MEDS: amLODIPine Besylate 10 MG TABLET PO (09:03)
[2024-03-21] MEDS: Calcium Oyster Shell Elemental 500 MG TABLET PO (09:03)
[2024-03-21] MEDS: Metoprolol Succinate ER 50 MG TAB.ER.24H PO (09:04)
[2024-03-21] MEDS: Apixaban 5 MG TABLET PO (09:04)
[2024-03-21] MEDS: PARoxetine HCL 30 MG TABLET PO (09:04)
[2024-03-21] MEDS: Empagliflozin 10 MG TABLET PO (09:04)
[2024-03-21] MEDS: Amiodarone HCL 200 MG TABLET PO (09:04)
[2024-03-21] MEDS: DULoxetine HCl 20 MG CAPSULE.DR PO (09:04)
[2024-03-21] MEDS: Triamcinolone Acet 0.1 % Cream 15 GM TUBE 1 APPL TOPICAL (09:06)
[2024-03-21 09:49] LABS: Vancomycin Random 13.6 mcg/mL (15-20)
--- NOTE | 2024-03-21 10:11 | HE.PHANOTE ---
RE Vanco Trough returned at 13.6, renal function mostly the same. Will continue 1000 mg q24h now and watch for further renal decline.
[2024-03-21] MEDS: vancomycin HCL 1,000 MG in 0.9 % Sodium Chloride 250 ML 270 MG IV (10:46)
[2024-03-21] MEDS: Insulin Lispro 100 UNIT/ML 3 ML VIAL SUBCUT (12:05)
--- NOTE | 2024-03-21 12:54 | P.PNIM_ITS ---
Subjective Subjective Date of Service: 03/21/24 Interval History: Has peristent redness of the leg but looks better, no purulent dc h/o obtained with volunteer services coordinator Physical Exam 2 Vital Signs: Vital Signs: Last Vital Signs Temp 97.7 F 03/21/24 07:14 Pulse 55 03/21/24 07:14 Resp 18 03/21/24 07:14 BP 138/63 03/21/24 07:14 Pulse Ox 99 03/21/24 07:14 O2 Del Method Nasal Cannula 03/21/24 07:14 O2 Flow Rate 2 03/21/24 07:14 BMI result Body Mass Index 45.3 Const: Other: General: AO X 3, no acute distress Resp: CTA bilateral CVS: S1,S2,RRR GI: +BS, NT, no distention Skin: Neuro: motor grossly intact Psych: appropriate affect Objective Data Active Medications Acetaminophen (Acetaminophen 325 Mg Tablet) 650 mg PO Q6H PRN PRN Reason: Pain, Mild (Pain Scale 1-3), fever or headache Last Admin: 03/18/24 18:25 Dose: 650 mg Documented By: AFSHIN Amiodarone HCl (Amiodarone Hcl 200 Mg Tablet) 200 mg PO DAILY [facility] Last Admin: 03/21/24 09:04 Dose: 200 mg Documented By: EVE Amlodipine Besylate (Amlodipine Besylate 10 Mg Tablet) 10 mg PO DAILY [facility]; Protocol Last Admin: 03/21/24 09:03 Dose: 10 mg Documented By: EVE Apixaban (Apixaban 5 Mg Tablet) 5 mg PO BID [facility] Last Admin: 03/21/24 09:04 Dose: 5 mg Documented By: EVE Aspirin (Aspirin Enteric Coated 81 Mg Tablet.Dr) 81 mg PO BEDTIME [facility] Last Admin: 03/20/24 21:18 Dose: 81 mg Documented By: YSABEL Atorvastatin Calcium (Atorvastatin Calcium 80 Mg Tablet) 80 mg PO BEDTIME [facility] Last Admin: 03/20/24 21:18 Dose: 80 mg Documented By: YSABEL Calcium Carbonate (Calcium Carbonate 750 Mg Tab.Chew) 750 mg PO Q4H PRN PRN Reason: Heartburn Calcium Carbonate (Calcium Oyster Shell Elemental 500 Mg Tablet) 500 mg PO BID [facility] Last Admin: 03/21/24 09:03 Dose: 500 mg Documented By: HO.GRAZIC Duloxetine HCl (Duloxetine Hcl 20 Mg Capsule.Dr) 20 mg PO DAILY [facility] Last Admin: 03/21/24 09:04 Dose: 20 mg Documented By: EVE Empagliflozin (Empagliflozin 10 Mg Tablet) 10 mg PO DAILY [facility] Last Admin: 03/21/24 09:04 Dose: 10 mg Documented By: EVE Furosemide (Furosemide 40 Mg Tablet) 40 mg PO DAILY [facility]; Protocol Last Admin: 03/20/24 08:30 Dose: 40 mg Documented By: EVE Glucose (Glucose Gel 15 Gm Gel..Gram.) 15 gm PO Q15M PRN; Protocol PRN Reason: per Hypoglycemia Standing Ord. Hydroxyzine HCl (Hydroxyzine Hcl 25 Mg Tablet) 25 mg PO Q8H PRN PRN Reason: anxiety Dextrose (D10) 250 mls @ 750 mls/hr IV Q15M PRN; Protocol PRN Reason: per Hypoglycemia Standing Ord. Ceftriaxone Sodium 1 gm/ (Sodium Chloride) 50 mls @ 100 mls/hr IV Q24H [facility] Last Infusion: 03/20/24 13:59 Dose: Infused Documented By: EVE Vancomycin HCl 1,000 mg/ (Sodium Chloride) 270 mls @ 270 mls/hr IV Q24H [facility] Last Infusion: 03/21/24 11:47 Dose: Infused Documented By: EVE Sodium Chloride (Ns) 1,000 mls @ 100 mls/hr IVCONT .Q10H [facility] Last Infusion: 03/21/24 09:39 Dose: Infused Documented By: EVE Insulin Glargine (Insulin Glargine,Hum.Rec.Anlog 100 Unit/Ml 10 Ml Vial) 45 unit SUBCUT BEDTIME [facility] Last Admin: 03/20/24 21:19 Dose: 45 unit Documented By: YSABEL Insulin Human Lispro (Insulin Lispro 100 Unit/Ml 3 Ml Vial) 0 unit SUBCUT QIDACHS [facility]; Protocol Last Admin: 03/21/24 12:05 Dose: 2 unit Documented By: EVE Levothyroxine Sodium (Levothyroxine Sodium 50 Mcg Tablet) 50 mcg PO DAILY@0600 [facility] Last Admin: 03/21/24 05:40 Dose: 50 mcg Documented By: YSABEL Losartan Potassium (Losartan Potassium 50 Mg Tablet) 50 mg PO DAILY [facility]; Protocol Last Admin: 03/19/24 09:05 Dose: 50 mg Documented By: AFSHIN Magnesium Hydroxide (Milk Of Magnesia 30 Ml Oral.Susp) 30 ml PO DAILY PRN PRN Reason: Constipation Melatonin (Melatonin 3 Mg Tablet) 6 mg PO BEDTIME PRN PRN Reason: Insomnia Metoprolol Succinate (Metoprolol Succinate Er 50 Mg Tab.Er.24h) 50 mg PO DAILY [facility]; Protocol Last Admin: 03/21/24 09:04 Dose: 50 mg Documented By: EVE Omeprazole (Omeprazole 40 Mg Capsule.Dr) 40 mg PO DAILY@0630 [facility] Last Admin: 03/21/24 05:40 Dose: 40 mg Documented By: YSABEL Ondansetron HCl (Ondansetron Hcl 4 Mg/2 Ml Vial) 4 mg IVPUSH Q8H PRN PRN Reason: Nausea and Vomiting Oxycodone HCl (Oxycodone Hcl Immed Release 5 Mg Tablet) 5 mg PO Q6H PRN PRN Reason: Pain, Severe (Pain Scale 7-10) Last Admin: 03/21/24 01:08 Dose: 5 mg Documented By: YSABEL Paroxetine HCl (Paroxetine Hcl 30 Mg Tablet) 30 mg PO DAILY [facility] Last Admin: 03/21/24 09:04 Dose: 30 mg Documented By: EVE Pharmacy Consult (Consult Rx Vancomycin Dosing) 1 each MISCELLANE DAILY PRN PRN Reason: Consult order Polyethylene Glycol (Polyethylene Glycol 3350 17 Gm Powd.Pack) 17 gm PO DAILY PRN PRN Reason: Constipation Sodium Chloride (0.9 % Sodium Chloride Flush 3 Ml Syringe) 3 ml IVFLUSH QSHIFT [facility] Last Admin: 03/21/24 09:03 Dose: Not Given Documented By: EVE Non-Admin Reason: IV Running Trazodone HCl (Trazodone Hcl 50 Mg Tablet) 150 mg PO BEDTIME [facility] Last Admin: 03/20/24 21:18 Dose: 150 mg Documented By: YSABEL Triamcinolone Acetonide (Triamcinolone Acet 0.1 % Cream 15 Gm Tube) 1 appl TOPICAL BID [facility]; Protocol Last Admin: 03/21/24 09:06 Dose: 1 appl Documented By: EVE Labs 03/19/24 05:55 03/21/24 05:39 Labs: Laboratory Results - last 24 hr 03/18/24 03/18/24 03/19/24 18:29 19:41 07:03 Anion Gap Estim Creat Clear Calc Estimated GFR POC Glucose 169 H 150 H 127 H Random Glucose Calcium Random Vancomycin 03/19/24 03/19/24 03/19/24 11:32 15:46 17:08 Anion Gap Estim Creat Clear Calc Estimated GFR POC Glucose 144 H 165 H 137 H Random Glucose Calcium Random Vancomycin 03/19/24 03/19/24 03/20/24 20:21 22:01 07:33 Anion Gap Estim Creat Clear Calc Estimated GFR POC Glucose 153 H 162 H 109 Random Glucose Calcium Random Vancomycin 03/20/24 03/20/24 03/20/24 11:08 15:53 19:49 Anion Gap Estim Creat Clear Calc Estimated GFR POC Glucose 131 H 103 187 H Random Glucose Calcium Random Vancomycin 03/21/24 03/21/24 03/21/24 05:39 07:13 09:18 Anion Gap 13 Estim Creat Clear Calc 38.7 Estimated GFR 34 POC Glucose 131 H Random Glucose 132 H Calcium 8.6 Random Vancomycin 13.6 L Microbiology Microbiology Results: Microbiology 03/18/24 09:27 Blood Culture - Preliminary Blood - Venous No growth after 48 hours. 03/18/24 09:16 Blood Culture - Preliminary Blood - Venous No growth after 48 hours. Assessment and Plan (1) Cellulitis: Status: Acute Assessment and Plan: d4 73yo F with DM, HTN, morbid obesity, AF on apixaban presenting with cellulitis of L>R leg cellulitis - vancomycin 03/18-, ceftriaxone 03/18-, follow BCx, no DVT on US, change to PO Doxy by dc lactic acidosis - likely due to MTF, not septic CKD3 with MARK, slightly better - SCr creeping up; will HOLD losartan + furosemide, recheck DM2 - hold MTF + GPZ, give basal-bolus insulin + Jardiance HTN - continue metoprolol succinate + amlodipine; losartan on hold chronic AF - continue amiodarone + metoprolol succinate, apixaban CAD - continue atorvastatin + metoprolol succinate + ASA chronic HFpEF - continue metoprolol; losartan on hold; HOLD furosemide mood disorder/fibromyalgia - continue duloxetine + paroxetine + trazodone hypothyroidism - continue LT4 ANILA -CPAP at night morbid obesity - diet/exercise counseling VTE ppx - apixaban dispo - PT eval: home with VNA In my clinical judgment, the patient requires continued inpatient hospitalization for the following reasons: IV ABX Total time managing care of this patient today: 40 minutes. Quality Stroke Does the patient have a stroke diagnosis?: No VTE Prior VTE?: No VTE Risk Level:: Medical - moderate - high VTE Device Contraindication: Procedure Contraindicated VTE Drug Contraindication: N/A - Med Ordered
[2024-03-21] MEDS: cefTRIAXone sodium 1 GM in 0.9 % Sodium Chloride 50 ML IV (13:18)
[2024-03-21] MEDS: 0.9 % Sodium Chloride 1,000 ML 100 ML IVCONT (14:40)
--- NOTE | 2024-03-21 15:25 | P.F2F_ITS ---
Service Date Service Date: 03/21/24 Encounter Date of encounter: 03/21/24 Reasons for Services Signs and symptoms assessed: wound care Reason for correction: wound care Homebound: Leaving the home is medically contraindicated at this time without the asist of a device and/or another person due th the listed conditions above and below. Reason homebound: unable to drive Homebound supporting statement: homebound due to wound on leg with pain and making ambulation difficult and needs the assistance of another person Certification: Based on the above findings, I certify that this patient is confined to the home and needs intermittent correction care, physical therapy and/or speech therapy, or continues to need occupational therapy. The patient is under my care, and I have initiated the establishment of the plan of care. The patient will be followed by a physician who will periodically review the plan of care. Time Spent With Patient Time: Total time managing care of this patient today ____ minutes.
[2024-03-21] MEDS: Doxycycline Monohydrate 100 MG CAPSULE PO (15:31)
[2024-03-21 15:33] LABS: Glucose, Whole Blood 190 mg/dL (60-115)
[2024-03-21 15:33] LABS: Glucose, Whole Blood 174 mg/dL (60-115)
--- NOTE | 2024-03-21 15:36 | PM.DS ---
DS: Providers Provider Date of Service: 03/21/24 Date of admission: 03/18/24 12:10 Primary care physician: Amanda Myers MD Consults: 03/18/24 18:49 Consult to Wound Care Routine Reason for consultation: cellulits to lower extremities 03/21/24 12:55 Consult to Infectious Diseases Routine Consulting [place] [facility] Reason for consultation: cellulitis ? need IV or po DS: Diagnosis Discharge Diagnosis (1) Cellulitis: Status: Acute DS: Summary Hospital Course Hospital Course: admission hpi Chief Complaint: leg redness and pain A 73-year-old morbidly obese female with a history of hypertension, [id number] diabetes, and AFib on Apixaban, among other conditions, presents with a 1-month history of progressive redness and scabs on her leg, primarily on the left side, possibly starting from a scratch. She reports pain as the reason for her visit today, with no fever or chills. Lactic acid is 2.6, WBC is normal, and no imaging has been performed. She was given Cefepime and Vancomycin in the ED. hospital course: She presented with redness and pain in the leg as shown in the admission picture. She was admitted for cellulitis and treated with IV Vancomycin and Ceftriaxone with improvment and will be discharge with oral doxycycline for 7 more days. Of note she has mild MARK on CKD and was given IVF and has been stable the last 3 days, losartan and lasix have been stopped. Will repeat labs in 3 days and will have outpatient follow up at the kidney clinic Time Attestation Discharge Coordination Time (in mins): 45 Quality: Safe Use of Opioids Does Pt have an Active Cancer Diagnosis on the Problem List?: No Quality: Stroke Does the patient have a stroke diagnosis?: No Physical Exam Vital Signs: Vital Signs: Last Vital Signs Temp 97.7 F 03/21/24 07:14 Pulse 55 03/21/24 07:14 Resp 18 03/21/24 07:14 BP 138/63 03/21/24 07:14 Pulse Ox 99 03/21/24 07:14 O2 Del Method Nasal Cannula 03/21/24 07:14 O2 Flow Rate 2 03/21/24 07:14 BMI result Body Mass Index 45.3 DS: Data Data Completed and Pending Labs on day of discharge: Laboratory Results - last 24 hr 03/18/24 03/18/24 03/19/24 18:29 19:41 07:03 Sodium Potassium Chloride Carbon Dioxide Anion Gap BUN Creatinine Estim Creat Clear Calc Estimated GFR POC Glucose 169 H 150 H 127 H Random Glucose Calcium Random Vancomycin 03/19/24 03/19/24 03/19/24 11:32 15:46 17:08 Sodium Potassium Chloride Carbon Dioxide Anion Gap BUN Creatinine Estim Creat Clear Calc Estimated GFR POC Glucose 144 H 165 H 137 H Random Glucose Calcium Random Vancomycin 03/19/24 03/19/24 03/20/24 20:21 22:01 07:33 Sodium Potassium Chloride Carbon Dioxide Anion Gap BUN Creatinine Estim Creat Clear Calc Estimated GFR POC Glucose 153 H 162 H 109 Random Glucose Calcium Random Vancomycin 03/20/24 03/20/24 03/20/24 11:08 15:53 19:49 Sodium Potassium Chloride Carbon Dioxide Anion Gap BUN Creatinine Estim Creat Clear Calc Estimated GFR POC Glucose 131 H 103 187 H Random Glucose Calcium Random Vancomycin 03/21/24 03/21/24 03/21/24 05:39 07:13 09:18 Sodium 138 Potassium 4.5 Chloride 101 Carbon Dioxide 29 Anion Gap 13 BUN 26 H Creatinine 1.51 H Estim Creat Clear Calc 38.7 Estimated GFR 34 POC Glucose 131 H Random Glucose 132 H Calcium 8.6 Random Vancomycin 13.6 L 03/21/24 03/21/24 11:27 11:37 Sodium Potassium Chloride Carbon Dioxide Anion Gap BUN Creatinine Estim Creat Clear Calc Estimated GFR POC Glucose 190 H 174 H Random Glucose Calcium Random Vancomycin Preliminary micro results at discharge 03/18/24 09:27 Blood Culture - Preliminary Blood - Venous No growth after 48 hours. 03/18/24 09:16 Blood Culture - Preliminary Blood - Venous No growth after 48 hours. Discharge Plan Discharge Anticipated Discharge Date/Time: 03/21/24 15:21 Patient Disposition: Home Health Service Discharge Diagnosis: Cellulitis of the leg Referrals: [facility] [Other] - 1 Week Amanda Watkins MD [Primary Care Provider] - 1 Week Kirill Luna MD [Physician] - 1 Week (office will call) Discharge Medications: New doxycycline monohydrate 100 mg capsule 100 mg PO BID Qty: 13 0RF Continued amiodarone 200 mg tablet 200 mg PO DAILY Qty: 90 3RF insulin glargine [Lantus U-100 Insulin] 100 unit/mL solution 65 unit subcut BEDTIME calcium carbonate [Oyster Shell Calcium 500] 500 mg calcium (1,250 mg) tablet 1 tab PO BID atorvastatin 80 mg tablet 80 mg PO BEDTIME dapagliflozin propanediol [Farxiga] 10 mg tablet 10 mg PO DAILY aspirin 81 mg Tablet,Delayed Release (Dr/Ec) 81 mg PO BEDTIME Qty: 30 0RF Eliquis 5 mg Tablet 5 mg PO BID Qty: 60 0RF omeprazole 40 mg capsule,delayed release(DR/EC) 40 mg PO DAILY@0630 triamcinolone acetonide 0.1 % cream 1 appl topical BID trazodone 150 mg tablet 150 mg PO BEDTIME hydroxyzine HCl 25 mg tablet 25 mg PO Q8H PRN (Reason: anxiety) duloxetine 20 mg capsule,delayed release(DR/EC) 20 mg PO DAILY oxycodone-acetaminophen 5-325 mg tablet 1 tab PO Q6H PRN (Reason: severe pain) metoprolol succinate 50 mg Tablet Extended Release 24 Hr 50 mg PO DAILY paroxetine HCl 40 mg tablet 30 mg PO DAILY melatonin 5 mg tablet 5 mg PO BEDTIME PRN (Reason: sleep) Qty: 30 0RF amlodipine 10 mg tablet 10 mg PO DAILY levothyroxine 50 mcg tablet 50 mcg PO DAILY@0600 Discontinued glipizide 5 mg tablet extended release 24hr 1 tab PO DAILY losartan 50 mg Tablet 50 mg PO DAILY Qty: 0 0RF Protocol: Hold for SBP< HOLD for SBP < : 90 furosemide [Lasix] 20 mg tablet 40 mg PO DAILY metformin 1,000 mg tablet 1,000 mg PO BID Discharge Orders: Discharge Order (Routine); Ordered 03/21/24 Ordered By: Kevin Panda Diet: Diabetic diet Activity on Discharge: As tolerated Stand Alone Forms: Patient Portal Discharge page Print Language: Gibraltarian Other Ambulatory Orders: Basic Metabolic Panel Fasting (Routine) Timeframe: [id number] Facility: [facility] - Location: Laboratory Ordered By: Kevin Panda Activity Restrictions/Additional Instructions: Topical Wound Care Recommendations: Bilateral Lower Legs - Cleanse with Routine cleansing. Numa with Betadine allow to dry. Cover with dry gauze dressing. Change daily. Recommend follow up out patient Wound Clinic at [address] [place] [id number] and to call for an appointment at time of discharge. [phone].? Care Plan Goals: recovery from cellulitis of the legs Health Concerns: Cellulitis of the legs Plan of Treatment: Take Doxycycline as recommended and follow up with your Doctor in a week follow up with wound clinic as above stop losartan and lasix you will have a follow up with kidney doctor they will call you, you will have lab work done on wednesday Assessment: see above Patient Instructions: Doxycycline (By mouth), Cellulitis (DC)
--- NOTE | 2024-03-21 15:49 | MHC.CM.PN ---
met with familythey are concerned about pt legs not being cared for by vna called [facility] and messaged [facility] re same f2f sent to [facility] also spoke with pts nurse here as family was coming back to [place] pt to take home asked nurse to be sure it is pointed out to alejandro that wound care nurse receommends [place] [facility] [place]
[2024-03-21 16:18] LABS: Glucose, Whole Blood 146 mg/dL (60-115)
--- NOTE | 2024-03-21 17:57 | PC.NURSE ---
Pt family called three times to come transport patient home.
--- NOTE | 2024-03-22 15:53 | P.CNID_ITS ---
History of Present Illness Data of Consult Service Date: 03/21/24 Requesting physician: Kevin Panda Primary Care Provider: Amanda Myers MD HPI Reason for consult: left leg redness She reports left leg redness and swelling. She has had symptoms over last month. She has no fever or chills. Review of Systems 2 Review of Systems: Yes all other systems are reviewed and are negative [facility] Past Medical History Medical History (Updated 03/22/24 @ 15:56 by Meron Yee MD) Leg abrasion Abuse of non-prescription analgesics Type 2 diabetes mellitus with unspecified complications Other and unspecified hyperlipidemia Essential hypertension Atherosclerotic cardiovascular disease Urgency incontinence Osteoporosis Arthritis Asthma Hypertension Fibromyalgia Diabetes mellitus Family History Family history: reviewed and not pertinent Surgical History Surgical History History of hernia repair Social History Social History Household Members: Family Housing: Apartment Do you presently have visiting nurse or other home services: Yes ([employer] and vna) Unable to assess alcohol history related to: Refusing to respond Alcohol intake: never 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 Patient Tobacco Use Status: Never used Tobacco service: No Sexual orientation: Straight/Heterosexual Meds Allergies Allergy/AdvReac Type Severity Reaction Status Date / Time codeine [CODEINE] Allergy Intermediate HALLUCINATI Verified 03/18/24 08:33 ONS Home Medications ?Medication ?Instructions ?Recorded ?Confirmed ?Last Taken ?Type calcium carbonate (Oyster Shell 1 tab PO BID 07/22/20 03/18/24 03/18/24 09:00 History Calcium 500) insulin glargine 100 unit/mL 65 unit subcut BEDTIME 07/22/20 03/18/24 Unknown History subcutaneous solution (Lantus U-100 Insulin) amlodipine 10 mg tablet 10 mg PO DAILY 04/07/21 03/18/24 03/18/24 09:00 History atorvastatin 80 mg tablet 80 mg PO BEDTIME 04/07/21 03/18/24 10/24/23 20:00 History dapagliflozin propanediol 10 mg 10 mg PO DAILY 10/25/23 03/18/24 03/18/24 09:00 History tablet (Farxiga) levothyroxine 50 mcg tablet 50 mcg PO DAILY@0600 11/18/23 03/18/24 03/18/24 06:00 History duloxetine 20 mg capsule,delayed 20 mg PO DAILY 03/18/24 03/18/24 03/18/24 09:00 History release hydroxyzine HCl 25 mg tablet 25 mg PO Q8H PRN anxiety 03/18/24 03/18/24 Unknown History metoprolol succinate 50 mg 50 mg PO DAILY 03/18/24 03/18/24 03/18/24 09:00 History tablet,extended release 24 hr omeprazole 40 mg capsule,delayed 40 mg PO DAILY@0630 03/18/24 03/18/24 03/18/24 07:00 History release oxycodone-acetaminophen 5 mg-325 1 tab PO Q6H PRN severe pain 03/18/24 03/18/24 Unknown History mg tablet paroxetine HCl 40 mg tablet 30 mg PO DAILY 03/18/24 03/18/24 03/18/24 09:00 History trazodone 150 mg tablet 150 mg PO BEDTIME 03/18/24 03/18/24 Unknown History triamcinolone acetonide 0.1 % 1 appl topical BID 03/18/24 03/18/24 03/18/24 09:00 History topical cream Physical Exam 2 Vital Signs: Vital Signs: Last Vital Signs Temp 97.7 F 03/21/24 07:14 Pulse 55 03/21/24 07:14 Resp 18 03/21/24 07:14 BP 138/63 03/21/24 07:14 Pulse Ox 99 03/21/24 07:14 O2 Del Method Nasal Cannula 03/21/24 07:14 O2 Flow Rate 2 03/21/24 07:14 BMI result Body Mass Index 45.3 Const: General: cooperative HEENT: Head: Yes normal to inspection Face and sinus: Yes normal facial exam Mouth: Normal oral and palatal mucosa present Teeth and gingiva: d entition normal Eyes: General: appearance normal, both eyes and all related structures P upils: Equal, round and reactive pupils present Resp: Effort & Inspection: normal respiratory effort Cardio: Rate: regular rate Rhythm: regular rhythm GI: Palpation (GI): Soft to palpation and nontender : General: Yes no CVA tenderness Back/Spine/Pelvis: Back: no CVA tenderness Skin: General skin exam: no rashes or lesions noted Neuro: General: moves all extremities Cranial nerves: Yes Equal, round and reactive pupils present Extrem: Other: scaly area left leg scabs circular,eschar black pulses intact Psych: Appearance: grossly normal Results Labs 03/19/24 05:55 03/21/24 05:39 Microbiology Microbiology Results: Microbiology 03/18/24 09:27 Blood - Venous Blood Culture - Preliminary No growth after 48 hours. 03/18/24 09:16 Blood - Venous Blood Culture - Preliminary No growth after 48 hours. 03/18/24 22:40 Urine clean catch - Clean Catch Midstream Urine Culture - Final No growth. Assessment and Plan (1) Leg abrasion: Status: Acute Plan The leg eschars more consistent with venous stasis changes Would only give po Doxycycline 100 mg bid for a week or two in case superinfection. See Vascular outpatient.
== END 2024-03-21 18:17 | disposition home health service (06) | DRG 603 ==
LOC: HO.ED 09:27 → HO.EDOVER 12:15 → HO.S3 15:39
PROVIDERS: Family Medicine; Admitting Provider Internal Medicine; Emergency Provider Emergency Medicine; PCP Internal Medicine; Visit Provider Internal Medicine
DX: L03.116 Cellulitis of left lower limb (principal); I13.0 Hypertensive heart and chronic kidney disease with heart failure and stage 1 through stage 4 chronic kidney disease, or unspecified chronic kidney disease; I50.32 Chronic diastolic (congestive) heart failure; E87.21 Acute metabolic acidosis; Z68.42 Body mass index [BMI] 45.0-49.9, adult; F11.20 Opioid dependence, uncomplicated; I48.20 Chronic atrial fibrillation, unspecified; N17.9 Acute kidney failure, unspecified; E03.9 Hypothyroidism, unspecified; F39 Unspecified mood [affective] disorder; M79.7 Fibromyalgia; I87.8 Other specified disorders of veins; E78.5 Hyperlipidemia, unspecified; L03.115 Cellulitis of right lower limb; N18.30 Chronic kidney disease, stage 3 unspecified; E11.22 Type 2 diabetes mellitus with diabetic chronic kidney disease; E66.01 Morbid (severe) obesity due to excess calories; I25.10 Atherosclerotic heart disease of native coronary artery without angina pectoris; Z20.822 Contact with and (suspected) exposure to COVID-19; Z71.3 Dietary counseling and surveillance; Z79.01 Long term (current) use of anticoagulants; Z79.82 Long term (current) use of aspirin; Z79.899 Other long term (current) drug therapy
CPT/HCPCS: 0241U; 36415; 71045; 80048; 80076; 80202; 81001; 81003; 82565; 82947; 83605; 83690; 83735; 83880; 84484; 85025; 85027; 85652; 86140; 87040; 87086; 93005; 93970; 94660; 97161; 99285; J0692; J0696; J2270; J3370; J7120

== ENCOUNTER → 2024-03-18 08:53 | Outpatient (BNV) | payer OTHER, SELFPAY | PROVIDERS: Admitting Provider Internal Medicine; Emergency Provider Emergency Medicine; PCP Internal Medicine; Visit Provider Internal Medicine Cardiovascular Disease | DX: R94.31 Abnormal electrocardiogram [ECG] [EKG] (principal) | CPT/HCPCS: 93010 ==

== ENCOUNTER → 2024-03-18 12:10 | Outpatient (BNV) | payer OTHER, SELFPAY | PROVIDERS: Admitting Provider Internal Medicine; Emergency Provider Emergency Medicine; PCP Internal Medicine; Visit Provider Internal Medicine | DX: L03.116 Cellulitis of left lower limb (principal) | CPT/HCPCS: 99223; 99232; 99239; G0180 ==

== ENCOUNTER → 2024-03-18 12:10 | Outpatient (BNV) | payer OTHER, SELFPAY | PROVIDERS: Admitting Provider Internal Medicine; Emergency Provider Emergency Medicine; PCP Internal Medicine; Visit Provider Internal Medicine | DX: S80.819A Abrasion, unspecified lower leg, initial encounter (principal) | CPT/HCPCS: 99221 ==

== ENCOUNTER 2024-03-29 13:48 | Outpatient (AMB) | payer OTHER, SELFPAY ==
--- NOTE | 2024-03-29 13:48 | HO.NEPHOV_ITS ---
Vital Signs 03/29/24 13:54 BP 138/62 Blood Pressure Location Lt brachial Position Sitting Pulse 57 Pulse Source Pulse Oximeter Pulse Oximetry (%) 93 Oxygen Delivery Method Room Air Intake Visit Reasons: [place] [facility] [place]/ Private Branch Exchange Operator Required: Yes Private Branch Exchange Operator Name: Tristan [id number] Accompanied by: Daughter Allergies codeine [CODEINE] Allergy (Intermediate, Verified 03/29/24 13:54) HALLUCINATIONS HPI Comments Details: Mary Lou is a pleasant 73-year-old man with a history of longstanding diabetes mellitus hypertension and chronic kidney disease. She was accompanied by her daughter today. Private Branch Exchange Operator service was used. She was recently in the ER for cellulitis of the legs. She is currently on doxycycline. According to her daughter Mary Lou is noncompliant with the dietary restrictions. She is on high salt diet. She is compliant with her medications. [facility] Medical History (Updated 03/29/24 @ 14:10 by Vladimir Gallegos MD) Leg abrasion Abuse of non-prescription analgesics Type 2 diabetes mellitus with unspecified complications Other and unspecified hyperlipidemia Essential hypertension Atherosclerotic cardiovascular disease Urgency incontinence Osteoporosis Arthritis Asthma Hypertension Fibromyalgia Diabetes mellitus Surgical History History of hernia repair Social History Household Members: Family Housing: Apartment Do you presently have visiting nurse or other home services: Yes (forgeman helper and vna) Unable to assess alcohol history related to: Refusing to respond Alcohol intake: never 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 Patient Tobacco Use Status: Never used Tobacco service: No Sexual orientation: Straight/Heterosexual Review of Systems Const Denies fever(s) and Denies weight loss Card Denies chest pain Resp Denies cough and Denies hemoptysis GI Denies abdominal pain, Denies diarrhea and Denies nausea Musc Denies back pain Neuro Denies focal weakness Physical Exam Vital Signs: Last Vital Signs Pulse 57 03/29/24 13:54 BP 138/62 03/29/24 13:54 Pulse Ox 93 03/29/24 13:54 Oxygen Delivery Method Room Air 03/29/24 13:54 Awake. Comfortable. Neck is supple. Mucosa moist. Lungs air entry Heart S1-S2 heard no gallop. Abdomen soft. Extremities 1+ edema. No involuntary movements. No myoclonus. Results Reviewed Nephrology Results: Hgb 9.2 g/dl (12.0-16.0) L 03/19/24 WBC 7.6 X10*3/uL (4.8-10.8) 03/19/24 Plt Count 193 X10*3/uL (160-400) 03/19/24 Sodium 138 mmol/L (135-145) 03/21/24 Potassium 4.5 mmol/L (3.3-5.1) 03/21/24 Chloride 101 mmol/L (96-108) 03/21/24 Carbon Dioxide 29 mmol/L (22-29) 03/21/24 BUN 26 mg/dL (9-16) H 03/21/24 Creatinine 1.51 mg/dL (0.5-1.4) H 03/21/24 Calcium 8.6 mg/dL (8.4-10.2) 03/21/24 Urine Protein Trace mg/dL (Neg-Trace) 03/18/24 Assessment & Plan Assessment & Plan (1) Essential hypertension: Code(s): I10 - Essential (primary) hypertension Category: Medical (2) CKD stage 3 due to type 2 diabetes mellitus: Code(s): E11.22 - Type 2 diabetes mellitus with diabetic chronic kidney disease; N18.30 - Chronic kidney disease, stage 3 unspecified Category: Medical Plan Mary Lou chronic kidney disease stage IIIB in the setting of longstanding diabetes mellitus hypertension. Goal is to slow the portion disease Maintain hemoglobin A1c less than 7%. Maintain blood pressure less than 130/80 mm Hg. Continue overt nephrotoxic agents. She will benefit from JANENE inhibition and use of SGLT2 inhibitors. . She was very emotional today. I reassured her and discussed importance of tight control blood pressure and blood sugar again. Given the degree of renal insufficiency I would avoid using metformin due to the risk of lactic acidosis. She has anemia which is probably due to erythropoietin deficiency. Recheck hemoglobin and assess for erythropoietin replacement therapy. I will screen her for secondary hyperparathyroidism prior to next visit. Orders: Orders Complete Blood Count Auto Diff 1 Month N19 - Unspecified kidney failure Comprehensive Met. Panel 1 Month N19 - Unspecified kidney failure Creatinine Urine 1 Month N19 - Unspecified kidney failure UA and rflx microscopic 1 Month N19 - Unspecified kidney failure Total Protein Urine Random 1 Month N19 - Unspecified kidney failure Parathyroid Hormone Intact 1 Month N19 - Unspecified kidney failure Coding Level of Care Code Est Pt Level 4 (97626) Complex EM visit Add On G2211 Diagnoses Essential hypertension I10 CKD stage 3 due to type 2 diabetes mellitus E11.22; N18.30
[2024-03-29 13:54] VITALS: BP 138/62; PULSE 57; O2SAT 93
== END 2024-03-29 14:20 | disposition home or self-care (01) ==
LOC: HO.HKAM 13:48
PROVIDERS: PCP Internal Medicine; Visit Provider Internal Medicine Hypertension Specialist
DX: I10 Essential (primary) hypertension (principal); E11.22 Type 2 diabetes mellitus with diabetic chronic kidney disease; N18.30 Chronic kidney disease, stage 3 unspecified
CPT/HCPCS: 99214; G2211

== ENCOUNTER → 2024-03-29 13:48 | Outpatient (BNVA) | payer OTHER, SELFPAY | PROVIDERS: PCP Internal Medicine; Visit Provider Internal Medicine Hypertension Specialist | DX: E11.22 Type 2 diabetes mellitus with diabetic chronic kidney disease (principal); I12.9 Hypertensive chronic kidney disease with stage 1 through stage 4 chronic kidney disease, or unspecified chronic kidney disease; N18.9 Chronic kidney disease, unspecified; N19 Unspecified kidney failure | CPT/HCPCS: 99212 ==

== ENCOUNTER 2024-04-05 16:33 | Emergency (ER) | payer OTHER, SELFPAY ==
[2024-04-05] VITALS (8 sets, daily range): BP systolic 103–130; BP diastolic 41–67; PULSE 58–60; RESP 18–20; TEMP 37.1–37.5; O2SAT 98; BMI 47.0
--- NOTE | ~2024-04-05 | US_ITS ---
EXAMINATION: NONINVASIVE ASSESSMENT OF THE ARTERIES OF THE LEFT LOWER EXTREMITY INTERPRETING VASCULAR & INTERVENTIONAL RADIOLOGIST: Evangelist Kolb MD CLINICAL INFORMATION: Left lower extremity TECHNIQUE: Bilateral lower extremity duplex ultrasound was performed with velocity measurements and waveform analysis in the common femoral arteries, profunda femoris arteries, proximal mid and distal superficial femoral arteries, popliteal arteries and tibial vessels. This study was performed only at rest. COMPARISON: None FINDINGS: Velocities in cm/sec and phasicity as well as the presence of plaque are reported below. LEFT LEG: Some minimal scattered plaque Common Femoral: 116 Profunda Femoris: 91 Proximal SFA: 128 Mid SFA: 105 Distal SFA: 152 Popliteal: 116 Posterior tibial: No flow proximally, monophasic flow distally Peroneal: No flow Dorsalis pedis: Monophasic flow US/US arterial duplex LE LT IMPRESSION: Monophasic flow noted in the profundus femoris with stenosis likely. The posterior tibial and peroneal arteries are occluded with monophasic flow seen in the dorsalis pedis. Electronically signed by: Evangelist Kolb MD 04/05/2024 11:08 PM EDT
[2024-04-05] MEDS: ondansetron HCL 4 MG/2 ML VIAL IVPUSH (17:58)
[2024-04-05] MEDS: Morphine Sulfate 4 MG/ML CARTRIDGE IVPUSH (17:58)
[2024-04-05 18:03] LABS: MANUAL DIFF FLAG NO
[2024-04-05 18:11] LABS: INTERNATIONAL NORM RATIO 1.3 (0.9-1.1); Prothrombin Time 15.5 SEC (11.1-13.3)
[2024-04-05 18:18] LABS: Basophils Percent Auto 0.6 % (0-2); Eosinophils Absolute Auto 0.3 X10*3/uL (0.0-0.4); Eosinophils Percent Auto 4.8 % (0-4); Hematocrit 31.1 % (37.0-47.0); Hemoglobin 9.7 g/dl (12.0-16.0); Imm Gran Abs Auto 0.02 X10*3/uL (0.00-0.03); Imm Gran Pct Auto 0.3 % (0.0-0.4); Lymphocytes Absolute Auto 1.1 X10*3/uL (1.2-4.9); Lymphocytes Percent Auto 16.7 % (20-40); Mean Corpuscular HGB Conc 31.2 g/dl (31.0-35.0); Mean Corpuscular Hemoglobin 26.3 pg (27.0-33.0); Mean Corpuscular Volume 84.3 fL (80.0-98.0); Mean Platelet Volume 9.9 fL (9.4-12.3); Monocytes Absolute Auto 0.5 X10*3/uL (0.1-1.2); Monocytes Percent Auto 7.5 % (2-11); Neutrophils Absolute Auto 4.8 x10*3/uL (2.0-8.3); Neutrophils Percent Auto 70.1 % (45-73); Platelet Count 287 X10*3/uL (160-400); Red Blood Count 3.69 X10*6/uL (4.20-5.50); Red Cell Distribution Width 15.6 % (11.0-16.0); White Blood Count 6.8 X10*3/uL (4.8-10.8)
--- NOTE | 2024-04-05 18:24 | ED_ITS ---
HPI - General Adult General Chief complaint: Extremity Problem Stated complaint: CELLULITIS Time Seen by Provider: 04/05/24 16:45 Source: patient, family (Patient's daughter), RN notes reviewed, old records reviewed and heel top lift splitter Mode of arrival: EMS Limitations: language barrier History of Present Illness ED Provider: Ana HPI narrative: 73-year-old female with a past medical history significant for depression, morbid obesity, sleep apnea, asthma, CHF, a flutter on amiodarone and Eliquis, opiate dependence, hyperlipidemia, hypertension, diabetes presents for evaluation of left leg pain. Patient and her daughter who is bedside reports she has been having ongoing leg pain bilaterally but left greater than right for the last couple of weeks. She was admitted here on March 18, 2024 and was given an additional 6 day course of doxycycline upon discharge on the The patient's daughter states the patient has been compliant with the antibiotic. She is still complaining of chronic leg pain She has been using her Percocet at home without improvement She is now complaining of a rash in her vaginal area that she believes is related to being on antibiotics She has not had any known fevers She reports 05/18 pain Related Data Home Medications ?Medication ?Instructions ?Recorded ?Confirmed calcium carbonate (Oyster Shell 1 tab PO BID 07/22/20 04/06/24 Calcium 500) insulin glargine 100 unit/mL 65 unit subcut BEDTIME 07/22/20 04/06/24 subcutaneous solution (Lantus U-100 Insulin) amlodipine 10 mg tablet 10 mg PO DAILY 04/07/21 04/06/24 atorvastatin 80 mg tablet 80 mg PO BEDTIME 04/07/21 04/06/24 dapagliflozin propanediol 10 mg 10 mg PO DAILY 10/25/23 04/06/24 tablet (Farxiga) levothyroxine 50 mcg tablet 50 mcg PO DAILY@0600 11/18/23 04/06/24 duloxetine 20 mg capsule,delayed 20 mg PO DAILY 03/18/24 04/06/24 release omeprazole 40 mg capsule,delayed 40 mg PO DAILY@0630 03/18/24 04/06/24 release oxycodone-acetaminophen 5 mg-325 1 tab PO Q6H PRN severe pain 03/18/24 04/06/24 mg tablet triamcinolone acetonide 0.1 % 1 appl topical BID 03/18/24 04/06/24 topical cream insulin syringe-needle U-100 1 mL #10 ea 03/29/24 31 gauge x 5/16 bacitracin 500 unit/gram topical 1 appl topical DAILY 04/06/24 04/06/24 ointment hydroxyzine HCl 25 mg tablet 25 mg PO Q8H PRN anxiety 04/06/24 04/06/24 metoprolol succinate 50 mg 50 mg PO DAILY 04/06/24 04/06/24 tablet,extended release 24 hr paroxetine HCl 40 mg tablet 40 mg PO DAILY 04/06/24 04/06/24 trazodone 150 mg tablet 150 mg PO BEDTIME 04/06/24 04/06/24 Previous Rx's ?Medication ?Instructions ?Recorded amiodarone 200 mg tablet 200 mg PO DAILY #90 tabs 08/16/23 apixaban 5 mg tablet (Eliquis) 5 mg PO BID #60 tabs 11/03/23 aspirin 81 mg tablet,delayed 81 mg PO BEDTIME #30 tabs 11/03/23 release melatonin 5 mg tablet 5 mg PO BEDTIME PRN sleep #30 tabs 01/06/24 nystatin-triamcinolone 100,000 1 appl topical TID 1 week #30 grams 04/06/24 unit/g-0.1 % topical cream oxycodone 5 mg tablet 5 mg PO Q6H PRN severe pain (scale 04/06/24 score 7-10) #20 tabs Allergies Allergy/AdvReac Type Severity Reaction Status Date / Time codeine [CODEINE] Allergy Intermediate HALLUCINATI Verified 04/05/24 17:07 ONS Review of Systems 2 Constitutional: Constitutional: Denies body ache(s), Denies chills and Denies fever(s) ENT: Denies vertigo and Denies dizziness Cardiovascular: Cardiovascular: Denies chest pain and Denies dyspnea Respiratory: Respiratory: Denies cough and Denies dyspnea Gastrointestinal: Gastrointestinal: Denies abdominal pain, Denies nausea and Denies vomiting Integumentary/Breasts: Skin/Breast: Reports erythema, Reports skin pain, Reports sores and Reports wounds Neurologic: Denies vertigo and Denies dizziness PMFSH Past Medical History Medical History Leg abrasion Abuse of non-prescription analgesics Type 2 diabetes mellitus with unspecified complications Other and unspecified hyperlipidemia Essential hypertension Atherosclerotic cardiovascular disease Urgency incontinence Osteoporosis Arthritis Asthma Hypertension Fibromyalgia Diabetes mellitus Surgical History History of hernia repair Social History Social History Household Members: Family Housing: Apartment Do you presently have visiting nurse or other home services: Yes (fishing hand and vna) Unable to assess alcohol history related to: Refusing to respond Alcohol intake: never 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 Patient Tobacco Use Status: Never used Tobacco Smoked in Last 30 Days: No Use of substances other than those prescribed or required for medical reasons: No Advance Directives: No Advance Directives Information Provided: No Do you have a plan to hurt others: No Plan service: No Sexual orientation: Straight/Heterosexual Physical Exam ED Vital Signs: Vital Signs - 24 hr 04/05/24 17:58 04/05/24 18:43 04/05/24 18:44 Temperature Pulse Rate 60 Respiratory Rate 20 18 18 Blood Pressure 109/53 L Pulse Oximetry 98 Oxygen Delivery Method Room Air Oxygen Flow Rate 04/05/24 19:20 04/05/24 19:21 04/05/24 21:05 Temperature 98.7 F Pulse Rate 59 60 58 Respiratory Rate 20 Blood Pressure 103/41 L 129/67 Pulse Oximetry 98 Oxygen Delivery Method Nasal Cannula Oxygen Flow Rate 04/06/24 08:07 04/06/24 08:59 04/06/24 11:25 Temperature 98.1 F 98.5 F Pulse Rate 62 62 61 Respiratory Rate 20 20 Blood Pressure 140/84 H 140/84 H 117/63 Pulse Oximetry 97 97 99 Oxygen Delivery Method Nasal Cannula Nasal Cannula Oxygen Flow Rate 2.5 BMI result Body Mass Index 47.0 Const General: no acute distress, alert and awake Nutritional Appearance: well nourished Orientation/consciousness: patient oriented x3 HENMT Head: Yes normocephalic and Yes atraumatic Eyes Eyelids: Yes eyelids normal Conjunctivae: conjunctivae normal Sclerae: sclerae normal Corneas: corneas normal Pupils: Equal, round and reactive pupils present EOM: EOMs intact bilaterally Neck Neck: Yes full ROM Resp Effort & Inspection: normal respiratory effort, able to speak in complete sentences and not labored Skin Other: Patient's left lower extremity seems fairly similar when compared to the picture from 03/18/2024. The left lower extremity remains erythematous with increased warmth, several dark eschars there is no draining purulence. General skin exam: elasticity normal Neuro General: patient oriented x3 Cranial nerves: Yes Equal, round and reactive pupils present and Yes Bilaterally intact EOM present Cognition (Neuro): normal cognition Course Reevaluation(s) Reevaluation #1: The patient has intermittently screaming out in pain, her left lower extremity is warm to touch. However given her level of discomfort we will get an arterial ultrasound to rule out ischemia as the cause of her pain Time: 18:41 Reevaluation #2: Patient's left lower extremity arterial ultrasound does show some arterial insufficiency but with collateral flow with flow seen in the dorsalis pedis. Clinically, the patient does not have an acutely ischemic limb. There is good color and good warmth to the left foot. The patient is comfortable after receiving Dilaudid. She has no fever, no leukocytosis to suggest acute cellulitis in her symptoms appear unchanged since her admission 2-1/2 weeks ago with IV antibiotics and a course of doxycycline for a week. It does not appear to be acutely infected. She appears to have nonhealing wounds due to arterial insufficiency. I did discuss with the hospitalist, Dr. Knight for admission who does not feel that admission is necessary if the patient does not require IV antibiotics. He did recommend a vascular consult. I spoke with Dr. Beth, who reviewed the patient's case and recommends not transitioning to heparin this time. The patient can remain on Eliquis. He feels the patient can safely be discharged to follow-up in the outpatient setting. I attempted to call the patient's daughter Maggi Pettit with no answer. The patient's daughter did previously express interest in the patient going to a [place] [facility] facility to receive wound care. Plan to see physical therapy and case management in the morning. Time: 00:20 Reevaluation #3: 04/06/2024 0900 --> Patient expresses pain in her groin. Upon inspection, she has a significant yeast infection. Medication ordered. Physician observation continues. Time: 16:23 Additional Reevaluation(s): One of 2 blood culture resulted positive with Gram-positive cocci that was drawn yesterday. I ordered a repeat for today as the patient did recently have cellulitis, however I do feel this is likely a contaminant. If the patient spikes a fever we will becomes tachycardic or hypotensive, if her 2nd bottle from yesterday results with positive blood cultures, or if either the to drawn to result positive blood cultures, we can admit the patient for bacteremia. She had did receive a dose of vancomycin and cefepime yesterday. 17:32 a stat length with patient's daughter at bedside of current plan of care. All questions were answered Medications Administered Generic Name Dose Route Start Last Admin Trade Name Freq PRN Reason Stop Dose Admin Amiodarone HCl 200 mg 04/06/24 12:15 04/06/24 13:59 Amiodarone Hcl 200 Mg Tablet PO 200 mg DAILY JULIANNE Administration Amlodipine Besylate 10 mg 04/06/24 12:15 04/06/24 13:59 Amlodipine Besylate 10 Mg Tablet PO 10 mg DAILY JULIANNE Administration Protocol Apixaban 5 mg 04/06/24 12:15 04/06/24 13:59 Apixaban 5 Mg Tablet PO 5 mg BID JULIANNE Administration Bacitracin 1 appl 04/06/24 12:15 04/06/24 14:04 Bacitracin Oint 14 Gm Tube TOPICAL 1 appl DAILY JULIANNE Administration Protocol Calcium Carbonate 500 mg 04/06/24 12:15 04/06/24 13:59 Calcium Oyster Shell Elemental 500 Mg Tablet PO 500 mg BID JULIANNE Administration Duloxetine HCl 20 mg 04/06/24 12:15 04/06/24 13:59 Duloxetine Hcl 20 Mg Capsule. PO 20 mg DAILY JULIANNE Administration Empagliflozin 10 mg 04/06/24 12:45 04/06/24 13:59 Empagliflozin 10 Mg Tablet PO 10 mg DAILY JULIANNE Administration Levothyroxine Sodium 50 mcg 04/06/24 12:15 04/06/24 13:58 Levothyroxine Sodium 50 Mcg Tablet PO 50 mcg DAILY@0600 JULIANNE Administration Metoprolol Succinate 50 mg 04/06/24 12:15 04/06/24 13:59 Metoprolol Succinate Er 50 Mg Tab.Er.24h PO 50 mg DAILY JULIANNE Administration Protocol Omeprazole 40 mg 04/06/24 12:15 04/06/24 13:58 Omeprazole 40 Mg Capsule. PO 40 mg DAILY@0630 JULIANNE Administration Paroxetine HCl 40 mg 04/06/24 12:15 04/06/24 13:59 Paroxetine Hcl 40 Mg Tablet PO 40 mg DAILY JULIANNE Administration Triamcinolone Acetonide 1 appl 04/06/24 12:15 04/06/24 14:04 Triamcinolone Acet 0.1 % Cream 15 Gm Tube TOPICAL 1 appl BID JULIANNE Administration Protocol Discontinued Medications Generic Name Dose Route Start Last Admin Trade Name Elkin PRN Reason Stop Dose Admin Hydromorphone HCl 1 mg 04/05/24 18:30 04/05/24 18:43 Hydromorphone Hcl 1 Mg/Ml Syringe IVPUSH 04/05/24 18:31 1 mg ONCE ONE Administration Protocol Sodium Chloride 1,000 mls @ 999 mls/hr 04/05/24 18:45 04/05/24 21:09 Ns IV 04/05/24 19:45 Infused .Q1H1M JULIANNE Infusion Sodium Chloride 1,000 mls @ 999 mls/hr 04/05/24 18:45 04/05/24 21:30 Ns IV 04/05/24 19:45 Infused .Q1H1M JULIANNE Infusion Vancomycin HCl 2,000 mg in 500 mls @ 250 mls/hr 04/05/24 19:59 04/05/24 23:50 Vancomycin/Ns IV 04/05/24 21:58 Infused ONCE ONE Infusion Cefepime HCl 1 gm/ Sodium 50 mls @ 100 mls/hr 04/05/24 19:59 04/05/24 21:37 Chloride IV 04/05/24 20:28 Infused ONCE ONE Infusion Lorazepam 2 mg 04/06/24 12:27 04/06/24 12:37 Lorazepam 1 Mg Tablet PO 04/06/24 12:28 2 mg ONCE ONE Administration Morphine Sulfate 4 mg 04/05/24 17:21 04/05/24 17:58 Morphine Sulfate 4 Mg/Ml Cartridge IVPUSH 04/05/24 17:22 4 mg ONCE ONE Administration Protocol Nystatin 1 appl 04/06/24 08:46 04/06/24 09:46 Nystatin Ointment 15 Gm Tube TOPICAL 04/06/24 08:47 1 appl ONCE ONE Administration Protocol Ondansetron HCl 4 mg 04/05/24 17:21 04/05/24 17:58 Ondansetron Hcl 4 Mg/2 Ml Vial IVPUSH 04/05/24 17:22 4 mg ONCE ONE Administration Oxycodone HCl 10 mg 04/06/24 11:09 04/06/24 11:14 Oxycodone Hcl Immed Release 5 Mg Tablet PO 04/06/24 11:10 10 mg ONCE ONE Administration Medical Decision Making Medical Decision Making [facility] [place] Narrative: 73-year-old female with past medical history as documented above presents for evaluation of left leg pain. Plan for labs, blood cultures given the frequent infections. We will treat the patient's pain with morphine, Zofran and she will be given a L of IV fluids. I do feel that DVT is less likely given that she had negative duplex venous ultrasounds less than 2 weeks ago and is anticoagulated on Eliquis. Differential Diagnosis Differential Diagnoses: The differential diagnosis associated with the presentation includes Cellulitis DVT less likely Dependent edema Lymphadenopathy Admission/Observation Consideration of admission/observation: Escalation of care including admission/observation considered Considered for admission due to vascular/arterial insufficiency Consult Healthcare Provider Management of the patient was discussed with: Workers Compensation Specialist Vascular surgery Lab Data [facility] Lab Attestation statement: I reviewed the patient's lab results. Patient has no leukocytosis with a normal white count of 6.8. She has a mild anemia that is slightly improved when compared to 03/19/2024, her most recent labs. Her chemistries have no significant electrolyte abnormalities. Her glucose is elevated to 125 but she is a known diabetic. Her renal function has improved, her lactic acid remains elevated 2.7. Inflammatory markers are elevated 04/05/24 17:55 04/05/24 17:55 Labs: Lab Results 04/05/24 04/05/24 04/06/24 Range/Units 17:55 21:30 09:20 WBC 6.8 (4.8-10.8) X10*3/uL RBC 3.69 L (4.20-5.50) X10*6/uL Hgb 9.7 L (12.0-16.0) g/dl Hct 31.1 L (37.0-47.0) % MCV 84.3 (80.0-98.0) fL MCH 26.3 L (27.0-33.0) pg MCHC 31.2 (31.0-35.0) g/dl RDW 15.6 (11.0-16.0) % Plt Count 287 D (160-400) X10*3/uL MPV 9.9 (9.4-12.3) fL Immature Gran % (Auto) 0.3 (0.0-0.4) % Neut % (Auto) 70.1 (45-73) % Lymph % (Auto) 16.7 L (20-40) % [place] % (Auto) 7.5 (2-11) % Eos % (Auto) 4.8 H (0-4) % Baso % (Auto) 0.6 (0-2) % Lymph # (Auto) 1.1 L (1.2-4.9) X10*3/uL [place] # (Auto) 0.5 (0.1-1.2) X10*3/uL Eos # (Auto) 0.3 (0.0-0.4) X10*3/uL Baso # (Auto) 0.0 (0.0-0.2) X10*3/uL Abs Immat Gran (auto) 0.02 (0.00-0.03) X10*3/uL Absolute Neuts (auto) 4.8 (2.0-8.3) x10*3/uL Absolute Nucleated RBC 0.000 (0.0-0.012) X10*3/uL Nucleated RBC % (auto) 0.0 (0.0-0.2) /100WBC ESR 59 H (0-20) MM/HR Hold Purple Top SEE NOTE PT 15.5 H (11.1-13.3) SEC INR 1.3 H (0.9-1.1) Sodium 139 (135-145) mmol/L Potassium 5.0 (3.3-5.1) mmol/L Chloride 104 (96-108) mmol/L Carbon Dioxide 26 (22-29) mmol/L Anion Gap 14 (12-20) BUN 19 H (9-16) mg/dL Creatinine 1.27 (0.5-1.4) mg/dL Estim Creat Clear Calc 45.2 Estimated GFR 41 Random Glucose 125 H (60-115) mg/dL Lactic Acid 2.7 H* (0.5-2.0) mmol/L Lactic Acid F/U @ 2Hr 1.6 (0.5-2.0) mmol/L Calcium 8.8 (8.4-10.2) mg/dL Total Bilirubin 0.2 (0.0-1.0) mg/dL AST 12 (5-31) U/L ALT 11 (0-31) U/L Alkaline Phosphatase 66 (39-117) U/L C-Reactive Protein 2.38 H (< or = 0.50) mg/dL Total Protein 6.4 L (6.5-8.0) g/dL Albumin 3.0 L (3.5-5.0) g/dL COVID-19 (ANN) Negative (Negative) COVID-19 Clin Com See Note Radiology Impression Discussion of test interpretation with radiology: I have reviewed the radiologist's reading. Radiologist Impression: US/US arterial duplex LE LT IMPRESSION: Monophasic flow noted in the profundus femoris with stenosis likely. The posterior tibial and peroneal arteries are occluded with monophasic flow seen in the dorsalis pedis. Electronically signed by: Evangelist Kolb MD 04/05/2024 11:08 PM EDT RP Discharge Plan Discharge Clinical Impression: Arterial insufficiency of lower extremity Patient Disposition: Home, Self-Care Instructions: Peripheral Artery Disease (ED) Additional Instructions: Your leg pain does not appear to be related to cellulitis/infection Your ultrasound of your lower leg shows arterial insufficiency or bad blood flow to the left lower extremity and this can be contributing to pain You are already on Eliquis, so you do not need to change any medications at this time It is recommended that you follow-up with our vascular surgeon, Dr. Beth, call the number provided tomorrow morning to schedule follow-up I prescribed an additional short course of oxycodone. You may take 2 tablets instead of the usual 1 for the next few days to help with your increased pain Prescriptions: New oxycodone 5 mg tablet 5 mg PO Q6H PRN (Reason: severe pain (scale score 7-10)) Qty: 20 0RF Rx Instructions: Partial Fill upon patient request. nystatin-triamcinolone 100,000-0.1 unit/g-% cream 1 appl topical TID 7 Days Qty: 30 0RF Rx Instructions: Apply to affected area No Action amiodarone 200 mg tablet 200 mg PO DAILY Qty: 90 3RF insulin glargine [Lantus U-100 Insulin] 100 unit/mL solution 65 unit subcut BEDTIME calcium carbonate [Oyster Shell Calcium 500] 500 mg calcium (1,250 mg) tablet 1 tab PO BID atorvastatin 80 mg tablet 80 mg PO BEDTIME dapagliflozin propanediol [Farxiga] 10 mg tablet 10 mg PO DAILY aspirin 81 mg Tablet,Delayed Release (Dr/Ec) 81 mg PO BEDTIME Qty: 30 0RF Eliquis 5 mg Tablet 5 mg PO BID Qty: 60 0RF omeprazole 40 mg capsule,delayed release(DR/EC) 40 mg PO DAILY@0630 triamcinolone acetonide 0.1 % cream 1 appl topical BID duloxetine 20 mg capsule,delayed release(DR/EC) 20 mg PO DAILY oxycodone-acetaminophen 5-325 mg tablet 1 tab PO Q6H PRN (Reason: severe pain) bacitracin 500 unit/gram ointment 1 appl topical DAILY Rx Instructions: Apply to left foot trazodone 150 mg tablet 150 mg PO BEDTIME hydroxyzine HCl 25 mg tablet 25 mg PO Q8H PRN (Reason: anxiety) paroxetine HCl 40 mg tablet 40 mg PO DAILY metoprolol succinate 50 mg Tablet Extended Release 24 Hr 50 mg PO DAILY melatonin 5 mg tablet 5 mg PO BEDTIME PRN (Reason: sleep) Qty: 30 0RF amlodipine 10 mg tablet 10 mg PO DAILY levothyroxine 50 mcg tablet 50 mcg PO DAILY@0600 (DME) insulin syringe-needle U-100 1 mL 31 gauge x 5/16 syringe See Rx Instructions .ROUTE .MEDSUPPLY Qty: 10 Rx Instructions: As directed Referrals: Uzair Beth MD [Physician] - (arterial insufficiency, left leg) Print Language: Nepali
[2024-04-05 18:25] LABS: Alanine Aminotransferase 11 U/L (0-31); Alkaline Phosphatase 66 U/L (39-117); Anion Gap 14 (12-20); Aspartate Amino Transferase 12 U/L (5-31); Bilirubin Total 0.2 mg/dL (0.0-1.0); Blood Urea Nitrogen 19 mg/dL (9-16); C Reactive Protein 2.38 mg/dL (< or = 0.50); Calcium 8.8 mg/dL (8.4-10.2); Carbon Dioxide 26 mmol/L (22-29); Chloride 104 mmol/L (96-108); Creatinine Clr Calc Pharmacy 45.2; Estimated Glomerular Filt Rate 41; Glucose Random 125 mg/dL (60-115); Sodium 139 mmol/L (135-145); Total Protein 6.4 g/dL (6.5-8.0)
[2024-04-05 18:32] LABS: Lactic Acid 2.7 mmol/L (0.5-2.0)
[2024-04-05] MEDS: HYDROmorphone HCl 1 MG/ML SYRINGE IVPUSH (18:43)
[2024-04-05] MEDS: 0.9 % Sodium Chloride 1,000 ML 999 ML IV ×2 (18:44→19:23)
[2024-04-05 18:46] LABS: Erythrocyte Sedimentation Rate 59 MM/HR (0-20)
--- NOTE | 2024-04-05 19:31 | PC.NURSE ---
This RN assumed pt care @ 1900. Pt ca&ox4, no signs of distress. Pt medicated per oct. Pts family at bedside. Pts daughter requested and given wipes, towels, barrier cream. Plan of care ongoing.
--- NOTE | 2024-04-05 19:55 | PC.NURSE ---
Pt desat to 74% on rm air, pt placed on 2.5L ns sat 97%. Pt placed on purewick Pts family remains at bedside. Plan of care ongoing.
[2024-04-05 20:00] LABS: Reflex Lactate? Lactic Acid Added
[2024-04-05] MEDS: cefEPime HCl 1 GM in 0.9 % Sodium Chloride 50 ML IV (20:50)
[2024-04-05] MEDS: vancomycin/NS 2,000 MG/500 ML PLAST..BAG 250 MG IV (21:38)
--- NOTE | 2024-04-05 21:42 | PC.NURSE ---
Pt medicated per oct. Pt resting in bed, talking on cell phone. Plan of care ongoing
[2024-04-05 22:01] LABS: ~Lactic Acid-LAB USE ONLY 1.6 mmol/L (0.5-2.0)
[2024-04-06 08:07] VITALS: BP 140/84; PULSE 62; RESP 20; TEMP 36.7; O2SAT 97
[2024-04-06 08:59] VITALS: BP 140/84; PULSE 62; O2SAT 97
[2024-04-06 09:46] LABS: COVID-19 Test Negative (Negative); IDNOW Serial# 152EDE1D
[2024-04-06] MEDS: Nystatin Ointment 15 GM TUBE 1 APPL TOPICAL (09:46)
--- NOTE | 2024-04-06 09:46 | PC.NURSE ---
patient cleaned up this morning, patient noted to have red/raw yeast like areas around callie area and bottom. copious amount of nystatin cream applied to areas. patient states shes having pain where the irritated area is. patient given water. respirations equal and unlabored, bilat swelling noted to lower legs, left leg noted to be red with healing scabbed wounds. currently on 2l Nc, VSS
--- NOTE | 2024-04-06 10:31 | MHC.CM.ED ---
Received case management consult overnight. Patient came to the ER due to cellulitis. Physical therapy eval completed. Short term rehab is recommended. Met with patient and granddaughter, Yao. Patient is primarily Honduran speaking but is declining an crew attendant at this time. Patient lives with her sister, uses a walker for mobility and is active with [facility] for intermediate. PCP verified. Patient believes her daughter has a copy of her HCP and will attempt to obtain a copy. Patient is agreeable to STR but has never been herself. Patient and granddaughter agreeable to referral being broadcasted in [facility]. They are requesting a private room. Referral broadcasted within 20 miles to all facilities contracted with [facility]. Continue o monitor for d/c needs.
[2024-04-06] MEDS: oxyCODONE HCl Immed Release 5 MG TABLET 10 MG PO (11:14)
[2024-04-06 11:25] VITALS: BP 117/63; PULSE 61; RESP 20; TEMP 36.9; O2SAT 99
--- NOTE | 2024-04-06 11:41 | PHA.MEDREC ---
Addendum entered by Andrew Anand RPh 04/06/24 12:00: MED REC CHECKED BY [facility] Original Note: Pharmacy Consult ? Medication Reconciliation Pharmacy has completed the medication reconciliation. Spoke to patient through aerial photograph interpreter service. Patient family states patient has a nurse (Jones [phone]) who give patient medications. Spoke to Joens over the phone and he was able to confirm all patients medications. Jones states patient was [place] [facility] [place] and some meds have been discontinued Furosemide 20 mg TID, Gipizide ER 5 mg daily, Losartan 50 mg daily, Metformin 1,00 mg BID. Jones say patient is on Lantus 65 units at bedtime, and patient now takes Metoprolol succ 50 mg daily, however claims states Metoprolol Tartrate 25 mg daily. Jones states he saw the patient yesterday morning and gave her all her morning medications. He said he gave patient one tablet of oxycodone-acetaminophin 5-325mg and left one tablet out for her just in case she needed it for the afternoon. He isn't sure if she took it. patient was already at [facility] when he went back to her house in the evening.
[2024-04-06] MEDS: LORazepam 1 MG TABLET 2 MG PO (12:37)
[2024-04-06] MEDS: Levothyroxine Sodium 50 MCG TABLET PO (13:58)
[2024-04-06] MEDS: Omeprazole 40 MG CAPSULE.DR PO (13:58)
[2024-04-06] MEDS: Empagliflozin 10 MG TABLET PO (13:59)
[2024-04-06] MEDS: Apixaban 5 MG TABLET PO ×2 (13:59→21:41)
[2024-04-06] MEDS: amLODIPine Besylate 10 MG TABLET PO (13:59)
[2024-04-06] MEDS: Metoprolol Succinate ER 50 MG TAB.ER.24H PO (13:59)
[2024-04-06] MEDS: DULoxetine HCl 20 MG CAPSULE.DR PO (13:59)
[2024-04-06] MEDS: Amiodarone HCL 200 MG TABLET PO (13:59)
[2024-04-06] MEDS: PARoxetine HCL 40 MG TABLET PO (13:59)
[2024-04-06] MEDS: Calcium Oyster Shell Elemental 500 MG TABLET PO ×2 (13:59→21:41)
[2024-04-06] MEDS: Triamcinolone Acet 0.1 % Cream 15 GM TUBE 1 APPL TOPICAL ×2 (14:04→21:41)
[2024-04-06] MEDS: Bacitracin Oint 14 GM TUBE 1 APPL TOPICAL (14:04)
--- NOTE | 2024-04-06 17:25 | PC.NURSE ---
CARLOS Emanuel and PA student at bedside speaking with patient & family. Purewick remains in place, but pt has not voided at this time. Previous linens changed due to being soaked with urine. Purewick was in place, but suction was not on, causing urine to pool on pad underneath the patient. Pt is intermittently confused and reports pain & difficulty with movement.
--- NOTE | 2024-04-06 17:32 | MHC.CM.ED ---
Pt is sleeping. Reviewed bed offers with family via telephone. Family chose [facility]. [employer] updated. Requested they go for auth. Family aware that no facilities that offered beds had any private rooms available. Daughter, Alie ([phone]) at bedside. She is agreeable with the plan of care. Alie shared with CM that she would like to move her mother in with her after rehab, but has some concerns about assistance. Enc Alie to call [facility] acute care nurse practitioner for additional help. Also recommended that she work with the social welfare administrator at [facility] to have home services scheduled for her mother upon discharge from [facility]. Daughter aware that CM is waiting for [facility] authorization. Will discuss discharge tomorrow after auth obtained.
--- NOTE | 2024-04-06 19:19 | MHC.EDTECH ---
This pct assumed care of patient at 1900 ,Patient was incontinent of urine ,care given and bedding change ,PHILLIP Hwang is aware that patient is excoriated and red i her private area .
--- NOTE | 2024-04-06 19:19 | PC.NURSE ---
Luis Antonio ED PCT unable to obtain 2nd blood cultures. Difficult stick. This RN was able to get 1st set of blood cultures and called phlebotomy multiple times without response. Also spoke with lab who connected this RN to bark press operator. Team Cdl Driver stated that she can't page phlebotomy unless it's a code, STAT, or other situation where an emergency response is necessary. Then this RN spoke with Lashonda (kitchen food server) who stated that she would sent premium representative Gracie to Overflow to attempt to obtain 2nd cultures at 18:30, but he never came. Luis Antonio arrived and was unable to obtain 2nd cultures. Currently attempting to reach charge preparation technician (Josh) to have a 2nd set of cultures obtained by another tech, phlebotomy, or nursing.
--- NOTE | 2024-04-06 19:24 | MHC.EDTECH ---
This pct attempted to draw blood culture ,and was unable due to patient a difficult stick .
[2024-04-06 19:54] VITALS: BP 153/80; PULSE 62; RESP 16; TEMP 36.8; O2SAT 98
--- NOTE | 2024-04-06 20:17 | PC.NURSE ---
Called pharmacy regarding medication not available in Over[facility] ED Pyxis. Awaiting Triamcinolone cream. Will be administered as ordered upon receipt.
[2024-04-06] MEDS: traZODone HCL 50 MG TABLET 150 MG PO (21:41)
[2024-04-06] MEDS: Aspirin Enteric Coated 81 MG TABLET.DR PO (21:41)
[2024-04-06] MEDS: Insulin Glargine,Hum.rec.anlog 100 UNIT/ML 10 ML VIAL 65 UNIT SUBCUT (21:42)
[2024-04-06 22:59] LABS: Appearance Urine Clear; Color Urine Yellow; Glucose Urine UA >=1000 mg/dL (Negative); Leukocyte Esterase Urine Small (1+) (Negative); Nitrite Urine Negative (Negative); PH 5.5 (5.0-9.0); UMIC TRIGGER UACC YES; Urine Blood Negative (Negative); Urine Ketones Negative (Negative); Urine Protein Negative (Neg-Trace)
[2024-04-06 23:04] LABS: Bacteria Urine None Seen (None Seen); Hyaline Casts Urine 0-2 /LPF (0-2); RBC Urine 0-2 /HPF (0-2); Squamous Epithelial Cell Urine 0-2 /HPF (0-2); UACC Culture Trigger YES; WBC Urine 21-50 /HPF (0-5)
[2024-04-07] MEDS: Levothyroxine Sodium 50 MCG TABLET PO (05:50)
[2024-04-07] MEDS: Omeprazole 40 MG CAPSULE.DR PO (05:50)
[2024-04-07 06:00] VITALS: BP 161/64; PULSE 57; RESP 17; TEMP 36.8; O2SAT 98
--- NOTE | 2024-04-07 06:16 | PC.NURSE ---
pt is calm, cooperative, sleeping comfortably in hospital bed in no apparent distress. wearing 2L O2 via NC at baseline. purewick in place. call jacome within reach, plan of care ongoing
[2024-04-07] MEDS: Calcium Oyster Shell Elemental 500 MG TABLET PO ×2 (07:50→20:15)
[2024-04-07] MEDS: Empagliflozin 10 MG TABLET PO (07:50)
[2024-04-07] MEDS: Apixaban 5 MG TABLET PO ×2 (07:50→20:14)
[2024-04-07 07:52] VITALS: BP 142/60
[2024-04-07] MEDS: amLODIPine Besylate 10 MG TABLET PO (07:52)
[2024-04-07 07:53] VITALS: BP 142/60; PULSE 56
[2024-04-07] MEDS: Triamcinolone Acet 0.1 % Cream 15 GM TUBE 1 APPL TOPICAL ×2 (07:57→20:15)
[2024-04-07] MEDS: Bacitracin Oint 14 GM TUBE 1 APPL TOPICAL (07:57)
--- NOTE | 2024-04-07 08:00 | PC.NURSE ---
Care of Pt assumed at change of shift. AM care completed--change of linens/clothing. Pt medicated per OCT. Pt resting comfortably with eye closed--breakfast available for Pt.
[2024-04-07] MEDS: PARoxetine HCL 40 MG TABLET PO (08:07)
[2024-04-07] MEDS: DULoxetine HCl 20 MG CAPSULE.DR PO (08:07)
[2024-04-07] MEDS: Amiodarone HCL 200 MG TABLET PO (08:07)
--- NOTE | 2024-04-07 08:15 | PC.NURSE ---
Jj DIRECTOR OF CLINICAL TRIALS to order Nystatin for groin redness, yeast like rash Pt cleaned, new purewick applied, meds given and breakfast set up however pt back to sleep. POC 91
[2024-04-07] MEDS: Nystatin Powder 15 GM BOTTLE 1 APPL TOPICAL ×2 (08:30→20:21)
--- NOTE | 2024-04-07 08:47 | MHC.EDTECH ---
Assisted patient with personal hygiene with help from nurse. Changed patients gown and linen. Replaced Purewick.
[2024-04-07] MEDS: oxyCODONE HCl Immed Release 5 MG TABLET PO (12:06)
--- NOTE | 2024-04-07 12:06 | PC.NURSE ---
pt incontinent of urine. callie care performed. new purewick/pads applied. pt's buttocks/vaginal area displays erythema. tender to the touch. barrier cream applied. when changing pt over - pt seemingly warm to the touch. rectal temp obtained/displaying 99.2 rectally. pt verbalizing 9/10 left LLE pain - prn medication utilized. effectiveness pending. pt's family bedside for support. plan of care ongoing. call jacome placed within reach.
--- NOTE | 2024-04-07 12:11 | MHC.CM.ED ---
Patient remains in ER overflow. [facility] is in the process of obtaining insurance auth. Patient requires [facility] PAS Level 2 d/t inpatient aamir psych admission 10/2023. Level 1 already submitted by T/W. Continue to monitor for d/c needs.
[2024-04-07 12:28] VITALS: TEMP 37.3
--- NOTE | 2024-04-07 14:30 | PC.NURSE ---
per CM, pt will be transported to [facility] via BLS at 6pm.
--- NOTE | 2024-04-07 15:00 | MHC.CM.ED ---
Addendum entered by Mayda Botello 04/07/24 15:19: Transport time changed to 04/08 at 9am. Porsha Dumont RN, Sanjuanita MCNEILL and [facility] made aware. PHILLIP Lyonsfood beverage attendant will notify patient and family. Original Note: Insurance auth has been obtained by [facility]. [facility] PASRR Lvel 2 obtained. Patient can leave at 6pm. [facility] booked. Med nec with chart. Patient. Porsha Tipton RN and Sanjuanita MCNEILL aware. HCP completed with help of printing and stamping supervisor with patient. Patient is unable to sign d/t hand pain. T/W signed as principal. Witnessed by additional ER overflow staff. Original givent to patient. Copy placed in chart. Continue to monitor for d/c needs.
[2024-04-07 15:22] VITALS: BP 145/59; PULSE 55; RESP 20; TEMP 36.4; O2SAT 99
[2024-04-07] MEDS: Aspirin Enteric Coated 81 MG TABLET.DR PO (20:14)
[2024-04-07] MEDS: traZODone HCL 50 MG TABLET 150 MG PO (20:14)
[2024-04-07] MEDS: Insulin Glargine,Hum.rec.anlog 100 UNIT/ML 10 ML VIAL 65 UNIT SUBCUT (20:14)
[2024-04-07 22:00] VITALS: BP 118/60; PULSE 53; RESP 12; TEMP 36.3; O2SAT 98
[2024-04-08] MEDS: oxyCODONE HCl Immed Release 5 MG TABLET PO (01:02)
[2024-04-08] MEDS: Acetaminophen 325 MG TABLET 975 MG PO (01:52)
[2024-04-08] MEDS: Omeprazole 40 MG CAPSULE.DR PO (05:49)
[2024-04-08] MEDS: Levothyroxine Sodium 50 MCG TABLET PO (05:49)
[2024-04-08 06:00] VITALS: BP 145/63; PULSE 55; RESP 18; TEMP 36.6; O2SAT 92
--- NOTE | 2024-04-08 08:06 | MHC.EDTECH ---
Checked patient POC glucose and it was critically lowat 52. Patient given breakfast and orange juice. Nurse notified and asked POC glucose to be repeated after patient finishes breakfast.
[2024-04-08 08:13] LABS: Glucose, Whole Blood 185 mg/dL (60-115)
[2024-04-08 08:13] LABS: Glucose, Whole Blood 91 mg/dL (60-115)
[2024-04-08 08:13] LABS: Glucose, Whole Blood 147 mg/dL (60-115)
[2024-04-08 08:13] LABS: Glucose, Whole Blood 52 mg/dL (60-115)
[2024-04-08 08:13] LABS: Glucose, Whole Blood 125 mg/dL (60-115)
[2024-04-08 08:13] LABS: Glucose, Whole Blood 144 mg/dL (60-115)
[2024-04-08 08:13] LABS: Glucose, Whole Blood 106 mg/dL (60-115)
--- NOTE | 2024-04-08 08:15 | MHC.EDTECH ---
POC Glucose was repeated and came up to 108. Nurse was notified.
[2024-04-08 08:17] LABS: Glucose, Whole Blood 108 mg/dL (60-115)
[2024-04-08 08:48] VITALS: BP 122/70; PULSE 58; RESP 20; TEMP 36.6; O2SAT 100
[2024-04-08 08:53] VITALS: BP 122/70; PULSE 58; RESP 20; TEMP 36.6; O2SAT 100
== END 2024-04-08 09:08 | disposition skilled nursing facility (03) ==
PROVIDERS: Physician Assistant; Physician Assistant Medical; Emergency Provider Emergency Medicine
DX: I77.1 Stricture of artery (principal); E11.22 Type 2 diabetes mellitus with diabetic chronic kidney disease; I13.0 Hypertensive heart and chronic kidney disease with heart failure and stage 1 through stage 4 chronic kidney disease, or unspecified chronic kidney disease; N18.30 Chronic kidney disease, stage 3 unspecified; I50.9 Heart failure, unspecified; F11.20 Opioid dependence, uncomplicated; Z79.4 Long term (current) use of insulin; Z79.01 Long term (current) use of anticoagulants; Z79.899 Other long term (current) drug therapy
CPT/HCPCS: 36415; 80053; 81001; 81003; 82947; 83605; 85025; 85610; 85652; 86140; 87040; 87086; 87147; 87205; 87635; 93926; 96361; 96365; 96366; 97162; 99285; J0692; J1170; J2270; J2405; J3370

== ENCOUNTER 2024-04-19 13:45 | Emergency (ER) | payer OTHER, SELFPAY ==
--- NOTE | ~2024-04-19 | CT_ITS ---
EXAMINATION: CT HEAD WITHOUT CONTRAST CT CERVICAL SPINE WITHOUT CONTRAST CLINICAL INFORMATION: Fall. Pain. COMPARISON: CT head and cervical spine from 03/14/2013. TECHNIQUE: Contiguous axial imaging was performed from the skull base to vertex without intravenous administration of contrast. Contiguous axial imaging was performed from the upper chest through the skull base without intravenous administration of contrast. Coronal and sagittal reformats were obtained at the acquisition workstation. This CT examination was performed using dose optimization techniques as appropriate, variously including the following: *Automated exposure control. *Adjustment of mA and/or kV according to patient size (this includes techniques or standardized protocols for targeted exams where dose is matched to indication/reason for exam; i.e. extremities or head). *Use of iterative reconstruction technique. DLP: 158 mGy-cm FINDINGS: Head: Lacunar infarct of the anterior right thalamus. No additional loss of costa-white matter differentiation. No evidence of acute intracranial hemorrhage. Scattered and partially confluent hypoattenuation in the periventricular and deep white matter are consistent with mild to moderate microangiopathy. Proportional prominence of the ventricles and sulcal spaces without evidence of obstructive hydrocephalus. No abnormal mass effect or midline shift. No extra-axial fluid collections. No acute soft tissue or osseous abnormalities. Mild mucosal thickening of the paranasal sinuses. The mastoid air cells and middle ear cavities are clear. Bilateral lens extractions. Cervical Spine: The atlantooccipital and atlantoaxial articulations remain well aligned. Mild degenerative arthropathy of the atlantodental articulation. Straightening of the normal cervical lordosis. Otherwise, there is anatomic alignment of the vertebral bodies and posterior elements. No evidence of acute fracture or subluxation. The vertebral body heights are maintained. Advanced degenerative disc disease from C4-C6. Mild to moderate degenerative disc disease at all additional levels. Facet and uncovertebral joint arthropathy leads to osseous encroachment on the neural foramina from C4-C6. There is no prevertebral soft tissue swelling. The thyroid gland and remaining cervical soft tissues are within normal limits. The lung apices demonstrate no abnormalities. CT/CT cervical spine wo IV con IMPRESSION: 1. No evidence of acute intracranial hemorrhage or edematous territorial infarction. 2. 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 Mild to moderate underlying microangiopathy and generalized cerebral volume loss. 3. No evidence of acute fracture or traumatic subluxation of the cervical spine. Moderate multilevel degenerative spondyloarthropathy of the cervical spine. Electronically signed by: Levar Torres DO 04/19/2024 04:34 PM EDT RP
--- NOTE | ~2024-04-19 | XR_ITS ---
EXAMINATION: XR KNEE, LEFT CLINICAL INFORMATION: Pain COMPARISON: X-rays of the left knee October 2022. MRI left knee June 2023. TECHNIQUE: Four views of the left knee. FINDINGS: The marginal osteophytes without definite joint space narrowing involving all compartments. There is a small joint effusion. No fracture. XR/XR knee LT 4V IMPRESSION: Mild osteoarthritis of the left knee. No change compared to prior. Small joint effusion. Electronically signed by: Oliver Awad MD 04/19/2024 04:18 PM EDT
[2024-04-19 13:51] VITALS: BP 110/72; PULSE 60
[2024-04-19 13:53] VITALS: BP 138/64; PULSE 54; RESP 16; TEMP 36.6; O2SAT 94; BMI 44.8
--- NOTE | 2024-04-19 13:54 | ED_ITS ---
HPI - General Adult General Chief complaint: Fall Stated complaint: L KNEE PAIN S/P FALL LAS NOC,+THINNER,FROM SNF Time Seen by Provider: 04/19/24 13:54 Source: patient, EMS and RN notes reviewed Mode of arrival: EMS History of Present Illness ED Provider: cira HPI narrative: Patient is a 73-year-old female with history of depression, morbid obesity, sleep apnea, asthma, CHF, a flutter on amiodarone and Eliquis, opiate dependence, hyperlipidemia, hypertension, diabetes presenting to the emergency department via ambulance from [facility] with complaint of left knee pain since last night. Daughter states that patient called her around 8pm last night and reported that she was on the toilet, when she went to stand, she fell forward onto her knees. She denied head strike or loss of consciousness to daughter. Denies dizziness or lightheadedness prior to fall. Denies headache, neck or back pain. Daughter expressing frustration that patient notified staff at [facility] and she was not transported for evaluation last night. MD complaint: left knee pain Onset (ago): hour(s) Location: left and lower extremity Radiation: non-radiation Severity: moderate Quality: aching Pain Consistency: constant Relieving factors: rest Exacerbating factors: movement Associated symptoms: denies other symptoms Treatments prior to arrival: other (c-collar applied by EMS) Related Data Home Medications ?Medication ?Instructions ?Recorded ?Confirmed insulin glargine 100 unit/mL 65 unit subcut BEDTIME 07/22/20 04/19/24 subcutaneous solution (Lantus U-100 Insulin) amlodipine 10 mg tablet 10 mg PO DAILY 04/07/21 04/19/24 atorvastatin 80 mg tablet 80 mg PO BEDTIME 04/07/21 04/19/24 dapagliflozin propanediol 10 mg 10 mg PO DAILY 10/25/23 04/19/24 tablet (Farxiga) levothyroxine 50 mcg tablet 50 mcg PO DAILY@0600 11/18/23 04/19/24 duloxetine 20 mg capsule,delayed 20 mg PO DAILY 03/18/24 04/19/24 release omeprazole 40 mg capsule,delayed 40 mg PO DAILY@0630 03/18/24 04/19/24 release triamcinolone acetonide 0.1 % 1 appl topical BID 03/18/24 04/19/24 topical cream insulin syringe-needle U-100 1 mL #10 ea 03/29/24 31 gauge x 5/16 bacitracin 500 unit/gram topical 1 appl topical DAILY 04/06/24 04/19/24 ointment hydroxyzine HCl 25 mg tablet 25 mg PO Q8H PRN Itching 04/06/24 04/19/24 paroxetine HCl 40 mg tablet 40 mg PO DAILY 04/06/24 04/19/24 trazodone 150 mg tablet 150 mg PO BEDTIME 04/06/24 04/19/24 acetaminophen 500 mg tablet 1,000 mg PO TID PRN Pain 04/19/24 04/19/24 amiodarone 200 mg tablet 200 mg PO BID 04/19/24 04/19/24 bisacodyl 10 mg rectal suppository 10 mg TN Q8H PRN Constipation 04/19/24 04/19/24 calcium carb-ergocalciferol (vit 1 tab PO BID 04/19/24 04/19/24 D2) 500 mg (1,250 mg)-200 unit tablet gabapentin 300 mg capsule 300 mg PO TID 04/19/24 04/19/24 magnesium hydroxide 400 mg/5 mL 30 ml PO Q8H PRN Constipation 04/19/24 04/19/24 oral suspension (Milk of Magnesia) melatonin 5 mg tablet 5 mg PO BEDTIME sleep 04/19/24 04/19/24 metoprolol tartrate 50 mg tablet 50 mg PO DAILY 04/19/24 04/19/24 nystatin-triamcinolone 100,000 1 appl topical DAILY 04/19/24 04/19/24 unit/g-0.1 % topical cream oxycodone 5 mg tablet 5 mg PO Q6H PRN Severe Pain (Scale 04/19/24 04/19/24 Score 7-10) sodium phosphates 19 gram-7 118 ml TN Q8H PRN Constipation 04/19/24 04/19/24 gram/118 mL enema (Fleet Enema) Previous Rx's ?Medication ?Instructions ?Recorded apixaban 5 mg tablet (Eliquis) 5 mg PO BID #60 tabs 11/03/23 Allergies Allergy/AdvReac Type Severity Reaction Status Date / Time codeine [CODEINE] Allergy Intermediate HALLUCINATI Verified 04/19/24 13:57 ONS Review of Systems Review of Systems: As per HPI. Yes all other systems are reviewed and are negative Constitutional: Constitutional: Reports as per HPI [facility] Past Medical History Medical History (Updated 04/19/24 @ 16:02 by Bing James NP) Leg abrasion Abuse of non-prescription analgesics Type 2 diabetes mellitus with unspecified complications Other and unspecified hyperlipidemia Essential hypertension Atherosclerotic cardiovascular disease Urgency incontinence Osteoporosis Arthritis Asthma Hypertension Fibromyalgia Diabetes mellitus Surgical History History of hernia repair Social History Social History Household Members: Family Housing: Apartment Do you presently have visiting nurse or other home services: Yes (relay record clerk and vna) Unable to assess alcohol history related to: Refusing to respond Alcohol intake: never 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 Patient Tobacco Use Status: Never used Tobacco Smoked in Last 30 Days: No Use of substances other than those prescribed or required for medical reasons: No Advance Directives: Yes Advance Directives on File: Yes Advance Directives Date on File: 04/07/24 service: No Sexual orientation: Straight/Heterosexual Physical Exam ED Vital Signs: Vital Signs - 24 hr 04/19/24 13:53 04/19/24 14:37 04/19/24 15:56 Temperature 98 F 97.0 F Pulse Rate 54 62 Respiratory Rate 16 18 16 Blood Pressure 138/64 143/59 H Pulse Oximetry 94 93 Oxygen Delivery Method Room Air Room Air BMI result Body Mass Index 44.8 Vital signs have been reviewed and appear to be correct. Blood pressure normal. Heart rate normal. Respiratory rate normal. Temperature normal. Oxygen saturation normal. Const General: cooperative and no acute distress Orientation/consciousness: oriented to person, oriented to place, oriented to time and patient oriented x3 Limitations: no limitations HENMT Head: Yes normocephalic and Yes atraumatic Ears: external ears normal General nose exam: Normal external nose present Face and sinus: Yes face symmetric Mouth: oropharynx normal and moist mucous membranes Throat: Yes uvula midline Eyes Pupils: Equal, round and reactive pupils present Neck Neck: Yes normal visual inspection and Yes supple Resp Effort & Inspection: normal respiratory effort and able to speak in complete sentences Auscultation: clear to auscultation bilaterally Cardio Rate: regular rate Rhythm: regular rhythm Heart sounds: S1 normal heart sound present and S2 normal heart sound present GI Palpation (GI): Soft to palpation and nontender Auscultation: normoactive bowel sounds General: Yes no CVA tenderness Back/Spine/Pelvis Back: no CVA tenderness Skin General skin exam: elasticity normal and turgor normal Neuro General: oriented to person, oriented to place, oriented to time, patient oriented x3, moves all extremities, no focal motor deficits and CN's II-XI intact bilaterally Cranial nerves: Yes Equal, round and reactive pupils present Cognition (Neuro): normal cognition Extrem General: Yes full ROM, Yes no pedal edema and Yes no calf tenderness Right lower extremity: lower leg (dressings, known cellulitis) and foot Details: normal capillary refill and vascular exam Details: dorsalis pedis pulse present and posterior tibial pulse present Left lower extremity: knee Details: tenderness Location: of the patella, laceration knee anterior Details: superficial and ecchymosis knee Details: single, lower leg (dressings, known cellulitis) and foot Details: normal capillary refill and vascular exam Details: dorsalis pedis pulse present and pos terior tibial pulse present Psych Mental Status: mental status grossly normal Affect: normal affect Thought process: Normal thought process present Medical Decision Making Medical Decision Making [facility] Narrative: Patient is a 73-year-old female with history of depression, morbid obesity, sleep apnea, asthma, CHF, a flutter on amiodarone and Eliquis, opiate dependence, hyperlipidemia, hypertension, diabetes presenting to the emergency department via ambulance from [facility] with complaint of left knee pain since last night. On exam patient is awake, A+Ox3, VS WNL, afebrile, normal neurological exam without focal deficits, physical exam findings as above. Given reported symptoms and physical exam findings, initial differential includes left knee contusion, abrasion, fracture, ICH, skull or cervical verteb ral fracture or subluxation. Patient signed out to CARLOS Lugo pending results of x-rays and CT scans. Differential Diagnosis Differential Diagnoses: The differential diagnosis associated with the presentation includes As per [facility] External Record Review External record reviewed: Inpatient record, Office record and Outpatient record Discharge Plan Discharge Clinical Impression: Contusion of knee, left Patient Disposition: Still a Patient Prescriptions: No Action insulin glargine [Lantus U-100 Insulin] 100 unit/mL solution 65 unit subcut BEDTIME atorvastatin 80 mg tablet 80 mg PO BEDTIME dapagliflozin propanediol [Farxiga] 10 mg tablet 10 mg PO DAILY Eliquis 5 mg Tablet 5 mg PO BID Qty: 60 0RF omeprazole 40 mg capsule,delayed release(DR/EC) 40 mg PO DAILY@0630 triamcinolone acetonide 0.1 % cream 1 appl topical BID duloxetine 20 mg capsule,delayed release(DR/EC) 20 mg PO DAILY bacitracin 500 unit/gram ointment 1 appl topical DAILY Rx Instructions: Apply to left foot trazodone 150 mg tablet 150 mg PO BEDTIME hydroxyzine HCl 25 mg tablet 25 mg PO Q8H PRN (Reason: Itching) paroxetine HCl 40 mg tablet 40 mg PO DAILY acetaminophen 500 mg Tablet 1,000 mg PO TID PRN (Reason: Pain) magnesium hydroxide [Milk of Magnesia] 400 mg/5 mL Suspension 30 ml PO Q8H PRN (Reason: Constipation) Rx Instructions: if no BM in 9 shifts (3 days) bisacodyl 10 mg Suppository 10 mg TN Q8H PRN (Reason: Constipation) Rx Instructions: if MoM doesn't work Calcium 500 with Vitamin D2 500 mg(1,250mg) -200 unit Tablet 1 tab PO BID metoprolol tartrate 50 mg Tablet 50 mg PO DAILY Fleet Enema 19-7 gram/118 mL Enema 118 ml TN Q8H PRN (Reason: Constipation) Rx Instructions: for no BM and if bisacodyl ineffective, do not give with dialysis/renal failure gabapentin 300 mg Capsule 300 mg PO TID amiodarone 200 mg tablet 200 mg PO BID nystatin-triamcinolone 100,000-0.1 unit/g-% cream 1 appl topical DAILY Rx Instructions: Apply to affected area oxycodone 5 mg tablet 5 mg PO Q6H PRN (Reason: Severe Pain (Scale Score 7-10)) Rx Instructions: Partial Fill upon patient request. melatonin 5 mg tablet 5 mg PO BEDTIME amlodipine 10 mg tablet 10 mg PO DAILY levothyroxine 50 mcg tablet 50 mcg PO DAILY@0600 (DME) insulin syringe-needle U-100 1 mL 31 gauge x 5/16 syringe See Rx Instructions .ROUTE .MEDSUPPLY Qty: 10 Rx Instructions: As directed Print Language: Kittitian
[2024-04-19 14:37] VITALS: RESP 18
--- NOTE | 2024-04-19 14:39 | PC.NURSE ---
Pt presents to ED via EMS from [facility]. C-collar by EMS. Pt was on toilet last night, went to get up and fell to knees, was not sent to ED for eval. D/C from [facility] today, family requested pt be brought to ED for eval due to fall last night. Pt is on blood thinner, eliquis. Reports swelling and pain to left knee area. Alert and oriented, Welsh speaking only, family member at bedside. Breathing even and unlabored, skin warm and dry.
--- NOTE | 2024-04-19 15:36 | PHA.MEDREC ---
Addendum entered by Ashlyn Briggs RPh 04/19/24 15:53: Med rec was reviewed by [facility]. Original Note: Pharmacy Consult ? Medication Reconciliation Pharmacy has completed the medication reconciliation. Utililzed the list from [facility] to confirm med list.
[2024-04-19 15:56] VITALS: BP 143/59; PULSE 62; RESP 16; TEMP 36.1; O2SAT 93
[2024-04-19 17:01] VITALS: BP 143/59; PULSE 62; RESP 16; TEMP 36.1; O2SAT 93
== END 2024-04-19 17:12 | disposition home or self-care (01) ==
PROVIDERS: Emergency Provider Emergency Medicine Emergency Medical Services; PCP Internal Medicine
DX: S80.02XA Contusion of left knee, initial encounter (principal); S09.90XA Unspecified injury of head, initial encounter; M54.2 Cervicalgia; R51.9 Headache, unspecified; M25.562 Pain in left knee; W19.XXXA Unspecified fall, initial encounter; Y93.89 Activity, other specified; Y92.89 Other specified places as the place of occurrence of the external cause; Y99.8 Other external cause status; Z79.899 Other long term (current) drug therapy
CPT/HCPCS: 70450; 72125; 73564; 99284

== ENCOUNTER 2024-06-11 05:04 | Inpatient (IN) | payer OTHER, SELFPAY ==
[2024-06-11] VITALS (10 sets, daily range): BP systolic 118–145; BP diastolic 37–72; PULSE 55–60; RESP 14–19; TEMP 37; O2SAT 91–100; BMI 52.4
--- NOTE | 2024-06-11 | ECG_ITS ---
Test Reason : sob Blood Pressure : / mmHG Vent. Rate : 055 BPM Atrial Rate : 055 BPM P-R Int : 220 ms QRS Dur : 090 ms QT Int : 448 ms P-R-T Axes : 033 -21 004 degrees QTc Int : 428 ms Sinus bradycardia with 1st degree A-V block Low voltage QRS Borderline ECG When compared with ECG of 18-MAR-2024 08:58, No significant change was found Referred By: Jayson Carrizales Electronically Signed By:JUANPABLO BOSS
--- NOTE | ~2024-06-11 | XR_ITS ---
EXAMINATION: XR TIBIA AND FIBULA, LEFT CLINICAL INFORMATION: Leg wound, rule out osteo COMPARISON: Left knee radiographs dated 04/19/2024 TECHNIQUE: AP and lateral views of the left tibia and fibula were obtained. FINDINGS: Possible mild periosteal reaction in the distal medial tibia at the medial malleolus. No acute fracture or dislocation. Soft tissue edema of the ankle. Vascular calcifications. Calcaneal spur. XR/XR tibia fibula LT 2V IMPRESSION: Possible mild periosteal reaction in the distal medial tibia at the medial malleolus. Recommend MRI for further evaluation. Electronically signed by: Lindsey Weinberg MD 06/18/2024 01:35 PM [facility]
--- NOTE | ~2024-06-11 | MR_ITS ---
EXAMINATION: MRI of the left tibia without and with contrast CLINICAL INFORMATION: Osteomyelitis leg wound infection. COMPARISON: X-ray of the left tibia-fibula June 2024. X-ray of the left knee April 2024 TECHNIQUE: MRI of the left tibia without and with contrast. Contrast dose 10 mm of Gadavist was given intravenously. FINDINGS: There is some artifact and image distortion history noted along the proximal distal ends of the [id number] examinations including the ankle and partially visualized knee joint . Possible nondisplaced tibial plateau fracture. Question edema surrounding the suspected fracture line. This area is limited given the artifact and image distortion because it is at the edge of the [id number] exam The marrow in the tibia otherwise appears normal. No definite signal abnormality in the medial malleolus. Limited evaluation of the distal fibula and ankle region related to heterogeneous fat suppression. No definite abnormal enhancement Muscles/tendons: Scattered atrophy and fatty infiltration throughout the muscles. No tendon abnormality. Subcutaneous soft tissues: Feathery appearing fluidlike signal circumferentially about the lower leg in the subcutaneous soft tissues without enhancement compatible with edema. No ulceration detected. MR/MR Tibia LT wo/w Contrast IMPRESSION: 1. Possible nondisplaced fracture of the tibial plateau. This area is limited given the artifact and image distortion. Consider follow-up x-ray of the left knee or CT or MRI to further assess for fracture as felt clinically necessary. Fracture not clearly seen on x-ray of the left tibia-fibula performed 06/18/2024 2. No definite abnormality in the medial malleolus. 3. No definite abnormality in the distal fibula or ankle region. Limited evaluation of this area due to artifact and image distortion. 4. Edema in the subcutaneous soft tissues. 5. Diffuse atrophy and fatty infiltration of the muscles Electronically signed by: Oliver Awad MD 06/19/2024 05:12 PM [facility]
--- NOTE | ~2024-06-11 | XR_ITS ---
EXAMINATION: XR CHEST CLINICAL INFORMATION: Shortness of breath COMPARISON: Chest x-ray on 03/18/2024 TECHNIQUE: 2 views of the chest were obtained. FINDINGS: The cardiac silhouette is enlarged but stable. There is increased pulmonary vascularity. No areas of consolidation. There are no pleural effusions or pneumothoraces. The bones and soft tissues are unremarkable for the patient's age. XR/XR chest 2V IMPRESSION: Mild pulmonary edema. Electronically signed by: Huong Mccarthy MD 06/11/2024 07:45 AM [facility]
--- NOTE | 2024-06-11 05:34 | ED_ITS ---
HPI - SOB/Dyspnea General Chief Complaint: Dyspnea Stated Complaint: Breathing prob, Ran out of med, on neb Time Seen by Provider: 06/11/24 05:10 Source: patient Mode of arrival: EMS Limitations: no limitations History of Present Illness ED Provider: javon EDWARDS Narrative: Patient with history of asthma, ANILA, CHF, obesity, CKD, diabetes comes here for increased shortness a breath since yesterday patient has been using nebulizer treatment at home without much relief saturating 90% at room air when EMS arrived no fever no chills no chest pain patient also does have nonhealing wound on the left leg for last 2 months Related Data Home Medications ?Medication ?Instructions ?Recorded ?Confirmed insulin glargine 100 unit/mL 65 unit subcut BEDTIME 07/22/20 04/19/24 subcutaneous solution (Lantus U-100 Insulin) amlodipine 10 mg tablet 10 mg PO DAILY 04/07/21 04/19/24 atorvastatin 80 mg tablet 80 mg PO BEDTIME 04/07/21 04/19/24 dapagliflozin propanediol 10 mg 10 mg PO DAILY 10/25/23 04/19/24 tablet (Farxiga) levothyroxine 50 mcg tablet 50 mcg PO DAILY@0600 11/18/23 04/19/24 duloxetine 20 mg capsule,delayed 20 mg PO DAILY 03/18/24 04/19/24 release omeprazole 40 mg capsule,delayed 40 mg PO DAILY@0630 03/18/24 04/19/24 release triamcinolone acetonide 0.1 % 1 appl topical BID 03/18/24 04/19/24 topical cream insulin syringe-needle U-100 1 mL #10 ea 03/29/24 31 gauge x 5/16 bacitracin 500 unit/gram topical 1 appl topical DAILY 04/06/24 04/19/24 ointment hydroxyzine HCl 25 mg tablet 25 mg PO Q8H PRN Itching 04/06/24 04/19/24 paroxetine HCl 40 mg tablet 40 mg PO DAILY 04/06/24 04/19/24 trazodone 150 mg tablet 150 mg PO BEDTIME 04/06/24 04/19/24 acetaminophen 500 mg tablet 1,000 mg PO TID PRN Pain 04/19/24 04/19/24 amiodarone 200 mg tablet 200 mg PO BID 04/19/24 04/19/24 bisacodyl 10 mg rectal suppository 10 mg HI Q8H PRN Constipation 04/19/24 04/19/24 calcium carb-ergocalciferol (vit 1 tab PO BID 04/19/24 04/19/24 D2) 500 mg (1,250 mg)-200 unit tablet gabapentin 300 mg capsule 300 mg PO TID 04/19/24 04/19/24 magnesium hydroxide 400 mg/5 mL 30 ml PO Q8H PRN Constipation 04/19/24 04/19/24 oral suspension (Milk of Magnesia) melatonin 5 mg tablet 5 mg PO BEDTIME sleep 04/19/24 04/19/24 nystatin-triamcinolone 100,000 1 appl topical DAILY 04/19/24 04/19/24 unit/g-0.1 % topical cream oxycodone 5 mg tablet 5 mg PO Q6H PRN Severe Pain (Scale 04/19/24 04/19/24 Score 7-10) sodium phosphates 19 gram-7 118 ml HI Q8H PRN Constipation 04/19/24 04/19/24 gram/118 mL enema (Fleet Enema) Previous Rx's ?Medication ?Instructions ?Recorded apixaban 5 mg tablet (Eliquis) 5 mg PO BID #60 tabs 11/03/23 metoprolol succinate 50 mg 50 mg PO DAILY #90 tabs 05/23/24 tablet,extended release 24 hr Allergies Allergy/AdvReac Type Severity Reaction Status Date / Time codeine [CODEINE] Allergy Intermediate HALLUCINATI Verified 06/11/24 05:19 ONS Review of Systems 2 Review of Systems: Yes all other systems are reviewed and are negative [facility] Past Medical History Medical History Leg abrasion Abuse of non-prescription analgesics Type 2 diabetes mellitus with unspecified complications Other and unspecified hyperlipidemia Essential hypertension Atherosclerotic cardiovascular disease Urgency incontinence Osteoporosis Arthritis Asthma Hypertension Fibromyalgia Diabetes mellitus Surgical History History of hernia repair Social History Social History Household Members: Family Housing: Apartment Do you presently have visiting nurse or 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) Unable to assess alcohol history related to: Refusing to respond Alcohol intake: never 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4 Appearance: Alert. Oriented X3. Moderate respiratory distress. Eyes: PERRLA, No Nystagmus ENT: Pharynx normal. Oral Mucosa moist Neck: Normal inspection. Neck supple. CVS: Normal heart rate and rhythm. Pulses normal. Respiratory: No respiratory distress. Equal air entry bilateral, bilateral wheezing with few crackles Abdomen: Soft and nontender. Bowel sounds are present, no mass palpable, no CVA tenderness Skin: Skin warm and dry. Normal skin color. Normal skin turgor. Extremities: 2+ lower extremity edema. No calf tenderness chronic wound on the left leg Neuro: Oriented X 3. No motor deficit. No sensory deficit.No cerebellar signs , cranial nerves II-XII intact Medications Administered Discontinued Medications Generic Name Dose Route Start Last Admin Trade Name Elkin PRN Reason Stop Dose Admin Ceftriaxone Sodium 1 gm 06/11/24 05:45 06/11/24 06:23 Ceftriaxone Sodium 1 Gm Vial IVPUSH 06/11/24 05:46 1 gm ONCE ONE Administration Albuterol Sulfate 2.5 mg/ 0 mg 06/11/24 05:45 06/11/24 05:59 Albuterol/Ipratropium 3 ml INHALE 06/11/24 05:46 5 dose ONCE ONE Administration Sodium Chloride 1,000 mls @ 999 mls/hr 06/11/24 05:46 06/11/24 06:23 Ns IV 06/11/24 06:46 999 mls/hr .Q1H1M ONE Administration Methylprednisolone Sodium Succinate 125 mg 06/11/24 05:45 06/11/24 06:22 Methylprednisolone Sod Succ 125 Mg/2 Ml Vial IVPUSH 06/11/24 05:46 125 mg ONCE ONE Administration Medical Decision Making Medical Decision Making [facility] Narrative: Patient's COPD/asthma with sleep apnea comes here for increased shortness a breath with nonhealing wound of the left leg with surrounding cellulitis lab workup showed MARK with hyperkalemia potassium of 5.9 will admit patient for IV antibiotic and COPD management Differential Diagnosis Differential Diagnoses: The differential diagnosis associated with the presentation includes Admission/Observation Consideration of admission/observation: Escalation of care including admission/observation considered Consult Healthcare Provider Management of the patient was discussed with: Hospitalist Lab Data [facility] Lab Attestation statement: I reviewed the patient's lab results. 06/11/24 05:41 06/11/24 05:41 Labs: Lab Results 06/11/24 06/11/24 Range/Units 05:41 06:08 WBC 8.2 (4.8-10.8) X10*3/uL RBC 3.41 L (4.20-5.50) X10*6/uL Hgb 8.4 L (12.0-16.0) g/dl Hct 28.1 L (37.0-47.0) % MCV 82.4 (80.0-98.0) fL MCH 24.6 L (27.0-33.0) pg MCHC 29.9 L (31.0-35.0) g/dl RDW 15.1 (11.0-16.0) % Plt Count 252 (160-400) X10*3/uL MPV 10.2 (9.4-12.3) fL Immature Gran % (Auto) 0.9 H (0.0-0.4) % Neut % (Auto) 72.3 (45-73) % Lymph % (Auto) 13.9 L (20-40) % [place] % (Auto) 8.6 (2-11) % Eos % (Auto) 3.4 (0-4) % Baso % (Auto) 0.9 (0-2) % Lymph # (Auto) 1.1 L (1.2-4.9) X10*3/uL [place] # (Auto) 0.7 (0.1-1.2) X10*3/uL Eos # (Auto) 0.3 (0.0-0.4) X10*3/uL Baso # (Auto) 0.1 (0.0-0.2) X10*3/uL Abs Immat Gran (auto) 0.07 H (0.00-0.03) X10*3/uL Absolute Neuts (auto) 5.9 (2.0-8.3) x10*3/uL Absolute Nucleated RBC 0.000 (0.0-0.012) X10*3/uL Nucleated RBC % (auto) 0.0 (0.0-0.2) /100WBC VBG pH 7.39 (7.32-7.43) VBG pCO2 40 mmHg VBG pO2 56 mmHg VBG HCO3 25 (22-26) mmol/L VBG O2 Saturation Not Reportable VBG Base Excess 0.3 mmol/L Sodium 138 (135-145) mmol/L Potassium 5.9 H (3.3-5.1) mmol/L Chloride 105 (96-108) mmol/L Carbon Dioxide 25 (22-29) mmol/L Anion Gap 14 (12-20) BUN 28 H (9-16) mg/dL Creatinine 1.85 H (0.5-1.4) mg/dL Estim Creat Clear Calc 30.7 Estimated GFR 27 Random Glucose 204 H (60-115) mg/dL Lactic Acid 1.7 (0.5-2.0) mmol/L Calcium 8.8 (8.4-10.2) mg/dL Total Bilirubin 0.3 (0.0-1.0) mg/dL AST 18 (5-31) U/L ALT 11 (0-31) U/L Alkaline Phosphatase 75 (39-117) U/L Troponin I High Sens 6.0 (<3.5-17.0) ng/L B-Natriuretic Peptide 369 H (<100) pg/mL Total Protein 6.4 L (6.5-8.0) g/dL Albumin 3.1 L (3.5-5.0) g/dL Independent Interpretation I performed an independent interpretation of an: EKG Interpretation: Sinus bradycardia with heart rate of 55 beats per minute normal interval normal axis no acute ST-T changes first-degree heart block with HI interval of 220 millisecond Discharge Plan Discharge Clinical Impression: Acute exacerbation of chronic obstructive airways disease, Acute renal disease, Acute hyperkalemia, Cellulitis and abscess of left leg Patient Disposition: Admitted As Inpatient Print Language: German
[2024-06-11 05:47] LABS: MANUAL DIFF FLAG NO
[2024-06-11 05:55] LABS: Lactic Acid 1.7 mmol/L (0.5-2.0)
[2024-06-11] MEDS: Albuterol Sulfate 2.5 MG, Albuterol/Iprat 2.5/0.5MG 3 ML 3 ML INHALE (05:59)
[2024-06-11 06:00] LABS: Alanine Aminotransferase 11 U/L (0-31); Albumin Level 3.1 g/dL (3.5-5.0); Alkaline Phosphatase 75 U/L (39-117); Anion Gap 14 (12-20); Aspartate Amino Transferase 18 U/L (5-31); Bilirubin Total 0.3 mg/dL (0.0-1.0); Blood Urea Nitrogen 28 mg/dL (9-16); Calcium 8.8 mg/dL (8.4-10.2); Carbon Dioxide 25 mmol/L (22-29); Chloride 105 mmol/L (96-108); Creatinine Clr Calc Pharmacy 30.7; Estimated Glomerular Filt Rate 27; Glucose Random 204 mg/dL (60-115); Potassium 5.9 mmol/L (3.3-5.1); Sodium 138 mmol/L (135-145); Total Protein 6.4 g/dL (6.5-8.0)
[2024-06-11 06:10] LABS: Venous Blood Gas Refer to POC result
[2024-06-11 06:13] LABS: VBG Base Excess 0.3 mmol/L; VBG HCO3 25 mmol/L (22-26); VBG pCO2 40 mmHg; VBG pH 7.39 (7.32-7.43); VBG pO2 56 mmHg
[2024-06-11 06:15] LABS: Basophils Absolute Auto 0.1 X10*3/uL (0.0-0.2); Basophils Percent Auto 0.9 % (0-2); Eosinophils Absolute Auto 0.3 X10*3/uL (0.0-0.4); Eosinophils Percent Auto 3.4 % (0-4); Hematocrit 28.1 % (37.0-47.0); Hemoglobin 8.4 g/dl (12.0-16.0); Imm Gran Abs Auto 0.07 X10*3/uL (0.00-0.03); Imm Gran Pct Auto 0.9 % (0.0-0.4); Lymphocytes Absolute Auto 1.1 X10*3/uL (1.2-4.9); Lymphocytes Percent Auto 13.9 % (20-40); Mean Corpuscular HGB Conc 29.9 g/dl (31.0-35.0); Mean Corpuscular Hemoglobin 24.6 pg (27.0-33.0); Mean Corpuscular Volume 82.4 fL (80.0-98.0); Mean Platelet Volume 10.2 fL (9.4-12.3); Monocytes Absolute Auto 0.7 X10*3/uL (0.1-1.2); Monocytes Percent Auto 8.6 % (2-11); Neutrophils Absolute Auto 5.9 x10*3/uL (2.0-8.3); Neutrophils Percent Auto 72.3 % (45-73); Platelet Count 252 X10*3/uL (160-400); Red Blood Count 3.41 X10*6/uL (4.20-5.50); Red Cell Distribution Width 15.1 % (11.0-16.0); White Blood Count 8.2 X10*3/uL (4.8-10.8)
--- NOTE | 2024-06-11 06:19 | MHC.EDTECH ---
Patient BIBA,changed into hospital attire,vitals taken,placed pt on the monitor tech,EKG taken per order and signed by provider, labs drawn and sent to lab, pure wick placed to keep pt clean and dry,pt tolerated well,pt is red and raw in groin area,RN aware at bedside, belongings list completed call jacome in reach
[2024-06-11] MEDS: methylPREDNISolone Sod Succ 125 MG/2 ML VIAL IVPUSH (06:22)
[2024-06-11] MEDS: 0.9 % Sodium Chloride 1,000 ML 999 ML IV (06:23)
[2024-06-11] MEDS: cefTRIAXone sodium 1 GM VIAL IVPUSH (06:23)
[2024-06-11 06:43] LABS: B Type Natriuretic Peptide 369 pg/mL (<100)
[2024-06-11] MEDS: Doxycycline Hyclate 100 MG in 0.9 % Sodium Chloride 250 ML 166.67 MG IV (07:29)
[2024-06-11] MEDS: Sodium Zirconium Cyclosilicate 10 GM POWD.PACK PO (07:29)
--- NOTE | 2024-06-11 11:25 | PM.IMHP ---
History of Present Illness Date of Service: 06/11/24 Attending physician on admission: Everett Bran Chief Complaint: SOB Pt is a 73-year-old female with a PMH significant for?paroxysmal AFib on Eliquis s/p cardioversion 06/2023, CAD, HFpEF, HTN, CKD 3, insulin-dependent type 2 diabetes, asthma, and hypothyroidism who presents to the ED with SOB and difficulty breathing since last night. Patient reports she feels like her ?lungs hurt? and she is unable to breathe, feeling ?like I am dying?. Also complains of chest tightness associated with breathing, occasional nonproductive cough. Denies fever, chills, nausea, vomiting, abdominal pain. Patient lives at home with the family. Reports being mostly wheelchair-bound with little to no ambulation. Chronic lower left leg wound at baseline. Patient states she has not taken home Lasix since time last discharge on 03/21/2024. Review of medical records indicates pt's home Lasix was held on 03/20/2024 due to worsening creatinine, but apparently never resumed outpatient during follow up. In the ED pt's vitals largely stable and WNL, satting as low as 90% on RA. Labs were significant for hyperkalemia of 5.9, BUN 28, creatinine 1.85, and BNP 369. No leukocytosis. Stable H&H. CXR showed mild pulmonary edema. EKG demonstrated sinus bradycardia of 55 with first-degree AV block but no evidence of significant ST elevations or depressions, similar to previous. Pt was treated with DuoNebs, Solu-Medrol, ceftriaxone, doxycycline, IVF, and Lokelma. Pt will be admitted to the hospital for treatment and further evaluation of acute respiratory distress in the setting of acute HFpEF exacerbation. Review of Systems Review of Systems: SOB, TRIANA Occasional non-productive cough Chest tightness associated with breathing and cough Chronic lower left leg wound at baseline Yes all other systems are reviewed and are negative [facility] Medical History Leg abrasion Abuse of non-prescription analgesics Type 2 diabetes mellitus with unspecified complications Other and unspecified hyperlipidemia Essential hypertension Atherosclerotic cardiovascular disease Urgency incontinence Osteoporosis Arthritis Asthma Hypertension Fibromyalgia Diabetes mellitus Surgical History History of hernia repair Social History Household Members: Family Housing: Apartment Do you presently have 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) Unable to assess alcohol history related to: Refusing to respond Alcohol intake: never 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 Patient Tobacco Use Status: Never used Tobacco Smoked in Last 30 Days: No Use of substances other than those prescribed or required for medical reasons: No Advance Directives: Yes Advance Directives on File: Yes Advance Directives Date on File: 04/07/24 service: No Sexual orientation: Straight/Heterosexual Meds Allergies Allergy/AdvReac Type Severity Reaction Status Date / Time codeine [CODEINE] Allergy Intermediate HALLUCINATI Verified 06/11/24 05:19 ONS Home Medications ?Medication ?Instructions ?Recorded ?Confirmed ?Last Taken ?Type insulin glargine 100 unit/mL 65 unit subcut BEDTIME 07/22/20 06/11/24 Unknown History subcutaneous solution (Lantus U-100 Insulin) amlodipine 10 mg tablet 10 mg PO DAILY 04/07/21 06/11/24 04/05/24 History atorvastatin 80 mg tablet 80 mg PO BEDTIME 04/07/21 06/11/24 10/24/23 20:00 History dapagliflozin propanediol 10 mg 10 mg PO DAILY 10/25/23 06/11/24 04/05/24 History tablet (Farxiga) levothyroxine 50 mcg tablet 50 mcg PO DAILY@0600 11/18/23 06/11/24 04/05/24 History duloxetine 20 mg capsule,delayed 20 mg PO DAILY 03/18/24 06/11/24 04/05/24 History release omeprazole 40 mg capsule,delayed 40 mg PO DAILY@0630 03/18/24 06/11/24 04/05/24 History release triamcinolone acetonide 0.1 % 1 appl topical BID PRN leg pain or 03/18/24 06/11/24 04/05/24 History topical cream swelling insulin syringe-needle U-100 1 mL #10 ea 03/29/24 Unknown History 31 gauge x 5/16 hydroxyzine HCl 25 mg tablet 25 mg PO Q8H PRN Itching 04/06/24 06/11/24 Unknown History trazodone 150 mg tablet 150 mg PO BEDTIME 04/06/24 06/11/24 Unknown History acetaminophen 500 mg tablet 1,000 mg PO TID PRN Pain 04/19/24 06/11/24 Unknown History amiodarone 200 mg tablet 200 mg PO DAILY 04/19/24 06/11/24 Unknown History melatonin 5 mg tablet 5 mg PO BEDTIME sleep 04/19/24 06/11/24 Unknown History aspirin 81 mg tablet,delayed 81 mg PO BEDTIME 06/11/24 06/11/24 Unknown History release calcium carbonate 500 mg PO BID 06/11/24 06/11/24 Unknown History clotrimazole 1 % topical cream 1 appl topical BID 06/11/24 06/11/24 Unknown History collagenase clostridium histo. 250 1 appl topical DAILY 06/11/24 06/11/24 Unknown History unit/gram topical ointment (Santyl) gabapentin 100 mg capsule 100 mg PO TID 06/11/24 06/11/24 Unknown History oxycodone-acetaminophen 5 mg-325 1 tab PO Q6H PRN pain 06/11/24 06/11/24 Unknown History mg tablet paroxetine HCl 40 mg tablet 40 mg PO DAILY 06/11/24 06/11/24 Unknown History Physical Exam Vital Signs and Narrative: Vital Signs: Last Vital Signs Temp 98.6 F 06/11/24 05:18 Pulse 55 06/11/24 08:12 Resp 17 06/11/24 08:12 BP 145/58 H 06/11/24 08:12 Pulse Ox 96 06/11/24 08:12 O2 Del Method Nasal Cannula 06/11/24 08:12 O2 Flow Rate 2 06/11/24 08:12 BMI result Body Mass Index 52.4 Constitutional: Alert, looks uncomfortable, in no acute distress. Mental Status: Oriented to person, place and time. Eyes: Pupils are equal, round, and reactive to light. Ear, Nose, and Throat: Oropharynx clear, mucous membranes moist. Ears and nose without deformities. Trachea midline. Respiratory: Diffuse expiratory wheezing bilaterally, some increased work of breathing. Cardiovascular: S1, S2 regula, bradycardia. No murmurs, rubs, or gallops. Gastrointestinal: Abdomen soft, non-tender, non-distended, obese. Normal bowel sounds. Neurologic: Cranial nerves II-XII are grossly intact bilaterally. No focal neurological deficits. Moves all extremities spontaneously. Skin: Warm, dry. Extremities: 3+ bilateral pitting lower leg edema. Chronic left lower extremity wound without signs of acute infection. As pictured below. Psychiatric: Normal mood and affect. Results Labs 06/11/24 05:41 06/11/24 05:41 Labs: Laboratory Results - last 24 hr 06/11/24 06/11/24 05:41 06:08 MCV 82.4 MCH 24.6 L MCHC 29.9 L RDW 15.1 Plt Count 252 MPV 10.2 Immature Gran % (Auto) 0.9 H Neut % (Auto) 72.3 Lymph % (Auto) 13.9 L [place] % (Auto) 8.6 Eos % (Auto) 3.4 Baso % (Auto) 0.9 Lymph # (Auto) 1.1 L [place] # (Auto) 0.7 Eos # (Auto) 0.3 Baso # (Auto) 0.1 Abs Immat Gran (auto) 0.07 H Absolute Neuts (auto) 5.9 Absolute Nucleated RBC 0.000 Nucleated RBC % (auto) 0.0 VBG pH 7.39 VBG pCO2 40 VBG pO2 56 VBG HCO3 25 VBG O2 Saturation Not Reportable VBG Base Excess 0.3 Anion Gap 14 Estim Creat Clear Calc 30.7 Estimated GFR 27 Random Glucose 204 H Lactic Acid 1.7 Calcium 8.8 Total Bilirubin 0.3 AST 18 ALT 11 Alkaline Phosphatase 75 Troponin I High Sens 6.0 B-Natriuretic Peptide 369 H Total Protein 6.4 L Albumin 3.1 L Imaging Radiologist's Impressions: Impressions Chest X-Ray 06/11/24 06:56 IMPRESSION: Mild pulmonary edema. Electronically signed by: Huong Mccarthy MD 06/11/2024 07:45 AM [facility] [place], [place] Assessment and Plan (1) CHF exacerbation: Status: Acute Plan Pt is a 73-year-old female with a PMH significant for?paroxysmal AFib on Eliquis s/p cardioversion 06/2023, CAD, HFpEF, HTN, CKD 3, insulin-dependent type 2 diabetes, asthma, and hypothyroidism who presents to the ED with SOB and difficulty breathing since last night. Pt will be admitted to the hospital for treatment and further evaluation of acute respiratory distress in the setting of acute HFpEF and asthma exacerbations. Acute respiratory distress in the setting of acute HFpEF exacerabation Pt with SOB, TRIANA, non-productive cough, elevated BNP, CXR with pulmonary edema, 3+ bilateral pitting edema Has not been taking home Lasix since 03/20 when stopped for worsening kideney function, not resumed during outpatient followup Will start on Lasix 40mg IV daily, titrate from there depending on clinical picture and kidney function Follow lytes, mag, I/O Low salt diet, daily weight Echocardiogram Consider cardiology consult for medication management Monitory on telemetry Acute asthma exacerbation SOB, TRIANA, wheezing In the setting of acute HFpEF exacerbation Not hypoxic but satting at 90% on room air Titrate supplemental O2 >92, wean as tolerated Duonebs Does not appear to be on home inhalers Monitor respiratory status MARK on CKD 3 Patient's creatinine 1.87 at time of presentation, baseline around 1.28 Likely cardiorenal in the setting of above Treat as above with diuretics Follow kidney function Consider nephrology consult if creatinine does not improve Hyperkalemia Potassium 5.9 at time presentation Likely in the setting of worsening kidney function Patient given Lokelma in the ED Follow potassium Chronic lower left wound Does not appear grossly infected Will defer additional antibiotics at this time Wound care consult Paroxysmal AFib Continue amiodarone, Eliquis HTN BP has been soft, hold amlodipine and metoprolol CAD/HLD Continue aspirin, statin Insulin-dependent type 2 diabetes Sliding-scale insulin, Lantus Diabetic diet Peripheral neuropathy Continue gabapentin Full Code Attending:?Dr. Bran DVT Prophylaxis: On Eliquis Pt will require a hospitalization of at least two nights for treatment of?acute respiratory distress and MARK in the setting of acute HFpEF exacerbation. Pt will require hospital level of care for administration of supplemental oxygen, IV diuretics, and close monitoring of labs, including kidney function and electrolytes. Quality Stroke Does the patient have a stroke diagnosis?: No VTE Prior VTE?: No VTE Risk Level:: Medical - moderate - high VTE Device Contraindication: Treatment Not Indicated VTE Drug Contraindication: N/A - Med Ordered
[2024-06-11] MEDS: Furosemide 40 MG/4 ML VIAL IVPUSH (13:41)
--- NOTE | 2024-06-11 13:43 | PC.NURSE ---
pt on 2l oxygen. her daughter says she wears it at home- but only sometimes. pt has a wet sounding cough. BP 118/46, MAP 71. lasix given. purewick in place. waiting for bed assignment.
[2024-06-11] MEDS: Albuterol/Iprat 2.5/0.5MG 3 ML AMPUL.NEB INHALE ×2 (15:17→20:41)
[2024-06-11] MEDS: Gabapentin 100 MG CAPSULE PO (15:55)
[2024-06-11] MEDS: 0.9 % Sodium Chloride Flush 3 ML SYRINGE IVFLUSH (15:56)
[2024-06-11 17:47] LABS: Glucose, Whole Blood 297 mg/dL (60-115)
[2024-06-11] MEDS: Insulin Lispro 100 UNIT/ML 3 ML VIAL SUBCUT (18:47)
[2024-06-11 19:00] LABS: COVID-19 Test Negative (Negative); IDNOW Serial# 152EDE1D
--- NOTE | 2024-06-11 19:06 | PC.NURSE ---
report received from Ivette Juarez RN, assume care of pt at this time
[2024-06-11 23:38] LABS: Glucose, Whole Blood 277 mg/dL (60-115)
[2024-06-12] VITALS (9 sets, daily range): BP systolic 115–160; BP diastolic 50–76; PULSE 54–64; RESP 17–20; TEMP 36.3–36.7; O2SAT 95–100; BMI 51.7
[2024-06-12] MEDS: Atorvastatin Calcium 80 MG TABLET PO ×2 (00:01→20:48)
[2024-06-12] MEDS: Gabapentin 100 MG CAPSULE PO ×4 (00:01→20:48)
[2024-06-12] MEDS: traZODone HCL 50 MG TABLET 150 MG PO ×2 (00:01→20:47)
[2024-06-12] MEDS: Apixaban 5 MG TABLET PO ×3 (00:01→20:48)
[2024-06-12] MEDS: Aspirin Enteric Coated 81 MG TABLET.DR PO ×2 (00:02→20:47)
[2024-06-12] MEDS: Insulin Lispro 100 UNIT/ML 3 ML VIAL SUBCUT ×5 (00:02→20:58)
[2024-06-12] MEDS: Calcium Oyster Shell Elemental 500 MG TABLET PO ×3 (00:02→20:48)
[2024-06-12] MEDS: 0.9 % Sodium Chloride Flush 3 ML SYRINGE IVFLUSH ×4 (00:03→23:54)
[2024-06-12] MEDS: Omeprazole 40 MG CAPSULE.DR PO (06:01)
[2024-06-12] MEDS: Levothyroxine Sodium 50 MCG TABLET PO (06:01)
[2024-06-12 06:25] LABS: MANUAL DIFF FLAG NO
[2024-06-12] MEDS: Acetaminophen 325 MG TABLET 650 MG PO (06:26)
[2024-06-12 06:29] LABS: Basophils Percent Auto 0.3 % (0-2); Hematocrit 26.5 % (37.0-47.0); Hemoglobin 7.9 g/dl (12.0-16.0); Imm Gran Abs Auto 0.06 X10*3/uL (0.00-0.03); Imm Gran Pct Auto 0.7 % (0.0-0.4); Lymphocytes Absolute Auto 0.8 X10*3/uL (1.2-4.9); Lymphocytes Percent Auto 8.5 % (20-40); Mean Corpuscular HGB Conc 29.8 g/dl (31.0-35.0); Mean Corpuscular Hemoglobin 24.1 pg (27.0-33.0); Mean Corpuscular Volume 80.8 fL (80.0-98.0); Mean Platelet Volume 10.4 fL (9.4-12.3); Monocytes Absolute Auto 0.7 X10*3/uL (0.1-1.2); Monocytes Percent Auto 7.9 % (2-11); Neutrophils Absolute Auto 7.5 x10*3/uL (2.0-8.3); Neutrophils Percent Auto 82.6 % (45-73); Platelet Count 239 X10*3/uL (160-400); Red Blood Count 3.28 X10*6/uL (4.20-5.50); White Blood Count 9.1 X10*3/uL (4.8-10.8)
[2024-06-12 06:44] LABS: Anion Gap 14 (12-20); Blood Urea Nitrogen 34 mg/dL (9-16); Calcium 8.6 mg/dL (8.4-10.2); Carbon Dioxide 22 mmol/L (22-29); Chloride 106 mmol/L (96-108); Estimated Glomerular Filt Rate 27; Glucose Random 191 mg/dL (60-115); Magnesium 2.4 mg/dL (1.6-2.6); Potassium 5.4 mmol/L (3.3-5.1); Sodium 137 mmol/L (135-145)
--- NOTE | 2024-06-12 07:00 | CA_ITS ---
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 Technically limited study due to body habitus as well as patient terminated they exam 2. Normal LV ejection fraction 55-60% with mild LVH with grade 2 diastolic dysfunction Findings Procedure Information The quality of the study was technically difficult. The study quality is limited by the patients inability to tolerate the test and patients body habitus. Left Ventricle Normal left ventricular size and systolic function. There is mildly increased left ventricular wall thickness. The visually estimated ejection fraction is between 55-60%. Spectral Doppler is indicative of a pseudonormal filling pattern. E/E prime ratio is >15, consistent with elevated filling pressures. Evidence suggests grade II (moderate) diastolic dysfunction. Right Ventricle The right ventricle was not well visualized. Atria The left atrium was not well visualized. The right atrium was not well visualized. Aortic Valve There is mild calcification of the aortic valve. Mitral Valve The mitral valve was not well visualized. Pulmonic Valve The pulmonic valve was not well visualized. Great Vessels The aorta was not well visualized. The pulmonary artery was not well visualized. Pericardium/Pleural The pericardium was not well visualized. Measurements 2D Linear Measurements IVSd: 1.21 0.6-0.9/0.6-1.0 cm LVIDd: 5.08 3.9-5.3/4.2-5.9 cm LVIDd Index: 2.47 2.4-3.2/2.2-3.1 cm/m2 LVIDs: 3.35 2.0-3.6 cm LVPWd: 1.20 0.7-1.1 cm LA Diam: 4.60 2.7-3.8/3.0-4.0 cm LAIDs Index: 2.23 1.5-2.3 cm/m2 LV Mass: 275.26 67-162/88-224 g LV Mass Index: 133.62 43-95/49-115 g/m2 LVOT Diam: 2.30 3.0+(-)1.3 cm Mitral Valve MV VTI: 0.50 MV Pk Hugh: 1.54 MV Mn Hugh: 0.77 MV Pk Grad: 9.00 MV Mn Grad: 3.00 MV Pk E: 1.15 MV PK A: 0.62 MV Decel Time: 275.00 E/A: 1.90 E'Lateral: 8.38 E'Medial: 5.55 E/E' Med: 20.70 E/E' Lat: 13.70 PHT: 81.00 MVA PHT: 2.72 Decel Twiggs: 4.17 LVOT LVOT Diam: 2.30 LVOT Area: 4.15 Diastolic Function MV Pk E: 1.15 MV Pk A: 0.62 E/A: 1.90 E'Medial: 5.55 E/E' Med: 20.70 E' Laterial: 8.38 E/E' Lat: 13.70 Great Vessels Aorta Sinus of Valsalva: 3.80 2.0-3.5 cm Ao Asc: 4.00 2.1-3.4 cm Pulmonary Valve PV Pk Hugh: 1.05 Peak PV Grad: 4.00 Updated in Other Vendor System with Status of Final Sravan Méndez MD electronically signed on 06/12/2024 11:53:38 AM with status of Final
--- NOTE | 2024-06-12 07:02 | PHA.MEDREC ---
Pharmacy Consult ? Medication Reconciliation Pharmacy has completed the medication reconciliation completed by Marvel on 06/11/24.
[2024-06-12 07:31] LABS: Glucose, Whole Blood 160 mg/dL (60-115)
[2024-06-12] MEDS: Albuterol/Iprat 2.5/0.5MG 3 ML AMPUL.NEB INHALE ×2 (08:05→20:36)
[2024-06-12] MEDS: Amiodarone HCL 200 MG TABLET PO (09:29)
[2024-06-12] MEDS: DULoxetine HCl 20 MG CAPSULE.DR PO (09:29)
[2024-06-12] MEDS: hydrOXYzine HCL 25 MG TABLET PO (09:29)
[2024-06-12] MEDS: PARoxetine HCL 40 MG TABLET PO (09:29)
[2024-06-12] MEDS: Sodium Zirconium Cyclosilicate 5 GM POWD.PACK PO (09:30)
[2024-06-12] MEDS: Furosemide 40 MG/4 ML VIAL IVPUSH (09:30)
--- NOTE | 2024-06-12 09:53 | PM.CNNEP ---
History of Present Illness Reason for Consult Consult date: 06/12/24 Chief Complaint Chief complaint: CHF Exacerbation History of Present Illness Narrative: 73 y/o female with a medical history of afib, CAD, HFpEF, HTN, CKD3, DMII, asthma, hypothyroidism, wheelchair bound. Presented to ED on 06/11 with shortness of breath since night prior, BLE edema, home lasix reportedly held since 03/20 due to worsening renal function. patient is being treated for asthma and HF exacerabtion. Nephrology consulted for MARK on CKD3 Creatinine baseline 1.28, on 06/11 1.87, 06/12 is 1.83 Potassium has been elevated, 06/11 5.9 (lokelma given), 06/12 is 5.4 (lokelma ordered) UOP 900mL over previous 24 hours has been receiving IVP lasix 40mg daily patient reports her breathing has improved since admission with diuretics and nebulizers she denies chest pain, dizziness she states she is not on O2 at home as she is now ([place]), but feels her breathing is close to baseline and needs O2 at home states she is urinating comfortably/regularly She denies other concerns/complaints Review of Systems Constitutional: Denies headache(s) and Denies poor appetite Denies dizziness and Denies headache(s) Cardiovascular: Reports dyspnea (feels close to her baseline ) Respiratory: Reports cough and Reports dyspnea (feels close to her baseline ) Gastrointestinal: Denies abdominal pain, Denies diarrhea and Denies nausea Genitourinary: Denies hematuria, Denies urinary frequency, Denies difficulty voiding, Denies dysuria and Denies flank pain Musculoskeletal: Denies arthralgias Skin/Breast: Reports lesions (chronic ulcers LLE) and Denies rash Denies dizziness and Denies headache(s) [facility] Past Medical History Medical History Leg abrasion Abuse of non-prescription analgesics Type 2 diabetes mellitus with unspecified complications Other and unspecified hyperlipidemia Essential hypertension Atherosclerotic cardiovascular disease Urgency incontinence Osteoporosis Arthritis Asthma Hypertension Fibromyalgia Diabetes mellitus Surgical History Surgical History History of hernia repair Social History Social History Household Members: Family Housing: Apartment Do you presently have visiting nurse or other home services: Yes Unable to assess alcohol history related to: Refusing to respond Alcohol intake: never 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 If so, by whom?: No Do you feel safe in your current relationship?: No Current Relationship Is there a partner from a previous relationship who is making you feel unsafe now?: No Are you made to feel afraid or neglected: No Advance Directives: Yes Advance Directives on File: Yes Advance Directives Date on File: 04/07/24 Recently lost weight without trying: No Eating poorly because of decreased appetite: No Nutrition Risks: No Nutritional Risk Patient : No : No Poor oral hygiene: No service: No Sexual orientation: Straight/Heterosexual Meds Allergies Allergy/AdvReac Type Severity Reaction Status Date / Time codeine [CODEINE] Allergy Intermediate HALLUCINATI Verified 06/11/24 05:19 ONS Active Medications: Current Medications Acetaminophen (Acetaminophen 325 Mg Tablet) 650 mg PO Q6H PRN PRN Reason: Pain, Mild (Pain Scale 1-3), fever or headache Last Admin: 06/12/24 06:26 Dose: 650 mg Albuterol/Ipratropium (Albuterol/Iprat 2.5/0.5mg 3 Ml Ampul.Neb) 3 ml INHALE RQ4H WHILE AWAKE [facility] Last Admin: 06/12/24 08:05 Dose: 3 ml Albuterol/Ipratropium (Albuterol/Iprat 2.5/0.5mg 3 Ml Ampul.Neb) 3 ml INHALE RQ4H WHILE AWAKE PRN PRN Reason: Shortness of Breath/Wheezing Amiodarone HCl (Amiodarone Hcl 200 Mg Tablet) 200 mg PO DAILY [facility] Last Admin: 06/12/24 09:29 Dose: 200 mg Apixaban (Apixaban 5 Mg Tablet) 5 mg PO BID [facility] Last Admin: 06/12/24 09:29 Dose: 5 mg Aspirin (Aspirin Enteric Coated 81 Mg Tablet.Dr) 81 mg PO BEDTIME [facility] Last Admin: 06/12/24 00:02 Dose: 81 mg Atorvastatin Calcium (Atorvastatin Calcium 80 Mg Tablet) 80 mg PO BEDTIME [facility] Last Admin: 06/12/24 00:01 Dose: 80 mg Benzonatate (Benzonatate 100 Mg Capsule) 100 mg PO TID PRN PRN Reason: Cough Calcium Carbonate (Calcium Carbonate 750 Mg Tab.Chew) 750 mg PO Q4H PRN PRN Reason: Heartburn Calcium Carbonate (Calcium Oyster Shell Elemental 500 Mg Tablet) 500 mg PO BID [facility] Last Admin: 06/12/24 09:29 Dose: 500 mg Duloxetine HCl (Duloxetine Hcl 20 Mg Capsule.) 20 mg PO DAILY [facility] Last Admin: 06/12/24 09:29 Dose: 20 mg Furosemide (Furosemide 40 Mg/4 Ml Vial) 40 mg IVPUSH DAILY [facility]; Protocol Last Admin: 06/12/24 09:30 Dose: 40 mg Gabapentin (Gabapentin 100 Mg Capsule) 100 mg PO TID [facility] Last Admin: 06/12/24 09:29 Dose: 100 mg Glucose (Glucose Gel 15 Gm Gel..Gram.) 15 gm PO Q15M PRN; Protocol PRN Reason: per Hypoglycemia Standing Ord. Hydroxyzine HCl (Hydroxyzine Hcl 25 Mg Tablet) 25 mg PO Q8H PRN PRN Reason: Itching Last Admin: 06/12/24 09:29 Dose: 25 mg Dextrose (D10) 250 mls @ 750 mls/hr IV Q15M PRN; Protocol PRN Reason: per Hypoglycemia Standing Ord. Insulin Human Lispro (Insulin Lispro 100 Unit/Ml 3 Ml Vial) 0 unit SUBCUT QIDACHS [facility]; Protocol Last Admin: 06/12/24 09:30 Dose: 2 unit Levothyroxine Sodium (Levothyroxine Sodium 50 Mcg Tablet) 50 mcg PO DAILY@0600 [facility] Last Admin: 06/12/24 06:01 Dose: 50 mcg Magnesium Hydroxide (Milk Of Magnesia 30 Ml Oral.Susp) 30 ml PO DAILY PRN PRN Reason: Constipation Melatonin (Melatonin 3 Mg Tablet) 6 mg PO BEDTIME PRN PRN Reason: Insomnia Omeprazole (Omeprazole 40 Mg Capsule.) 40 mg PO DAILY@0630 [facility] Last Admin: 06/12/24 06:01 Dose: 40 mg Ondansetron HCl (Ondansetron Hcl 4 Mg/2 Ml Vial) 4 mg IVPUSH Q8H PRN PRN Reason: Nausea and Vomiting Oxycodone HCl (Oxycodone Hcl Immed Release 5 Mg Tablet) 1 mg PO Q6H PRN PRN Reason: Pain, Moderate(Pain Scale 4-6) Paroxetine HCl (Paroxetine Hcl 40 Mg Tablet) 40 mg PO DAILY [facility] Last Admin: 06/12/24 09:29 Dose: 40 mg Sodium Chloride (0.9 % Sodium Chloride Flush 3 Ml Syringe) 3 ml IVFLUSH QSHIFT [facility] Last Admin: 06/12/24 09:35 Dose: 3 ml Sodium Zirconium Cyclosilicate (Sodium Zirconium Cyclosilicate 5 Gm Powd.Pack) 5 gm PO DAILY [facility] Last Admin: 06/12/24 09:30 Dose: 5 gm Trazodone HCl (Trazodone Hcl 50 Mg Tablet) 150 mg PO BEDTIME [facility] Last Admin: 06/12/24 00:01 Dose: 150 mg Home Medications ?Medication ?Instructions ?Recorded ?Confirmed ?Last Taken ?Type insulin glargine 100 unit/mL 65 unit subcut BEDTIME 07/22/20 06/11/24 Unknown History subcutaneous solution (Lantus U-100 Insulin) amlodipine 10 mg tablet 10 mg PO DAILY 04/07/21 06/11/24 04/05/24 History atorvastatin 80 mg tablet 80 mg PO BEDTIME 04/07/21 06/11/24 10/24/23 20:00 History dapagliflozin propanediol 10 mg 10 mg PO DAILY 10/25/23 06/11/24 04/05/24 History tablet (Farxiga) levothyroxine 50 mcg tablet 50 mcg PO DAILY@0600 11/18/23 06/11/24 04/05/24 History duloxetine 20 mg capsule,delayed 20 mg PO DAILY 03/18/24 06/11/24 04/05/24 History release omeprazole 40 mg capsule,delayed 40 mg PO DAILY@0630 03/18/24 06/11/24 04/05/24 History release triamcinolone acetonide 0.1 % 1 appl topical BID PRN leg pain or 03/18/24 06/11/24 04/05/24 History topical cream swelling insulin syringe-needle U-100 1 mL #10 ea 03/29/24 Unknown History 31 gauge x 16 hydroxyzine HCl 25 mg tablet 25 mg PO Q8H PRN Itching 04/06/24 06/11/24 Unknown History trazodone 150 mg tablet 150 mg PO BEDTIME 04/06/24 06/11/24 Unknown History acetaminophen 500 mg tablet 1,000 mg PO TID PRN Pain 04/19/24 06/11/24 Unknown History amiodarone 200 mg tablet 200 mg PO DAILY 04/19/24 06/11/24 Unknown History melatonin 5 mg tablet 5 mg PO BEDTIME sleep 04/19/24 06/11/24 Unknown History aspirin 81 mg tablet,delayed 81 mg PO BEDTIME 06/11/24 06/11/24 Unknown History release calcium carbonate 500 mg PO BID 06/11/24 06/11/24 Unknown History clotrimazole 1 % topical cream 1 appl topical BID 06/11/24 06/11/24 Unknown History collagenase clostridium histo. 250 1 appl topical DAILY 06/11/24 06/11/24 Unknown History unit/gram topical ointment (Santyl) gabapentin 100 mg capsule 100 mg PO TID 06/11/24 06/11/24 Unknown History oxycodone-acetaminophen 5 mg-325 1 tab PO Q6H PRN pain 06/11/24 06/11/24 Unknown History mg tablet paroxetine HCl 40 mg tablet 40 mg PO DAILY 06/11/24 06/11/24 Unknown History Physical Exam Vital Signs: Last Vital Signs Temp 97.5 F 06/12/24 07:21 Pulse 54 06/12/24 08:05 Resp 17 06/12/24 08:05 BP 128/76 06/12/24 09:30 Pulse Ox 100 06/12/24 07:21 O2 Del Method Nasal Cannula 06/12/24 07:21 O2 Flow Rate 3 06/12/24 07:21 BMI result Body Mass Index 51.7 Const General: no acute distress, alert and awake Resp Effort & Inspection: normal respiratory effort and able to speak in complete sentences Auscultation: rhonchi Cardio Jugular venous distension: no JVD Rate: regular rate Heart sounds: S1 normal heart sound present and S2 normal heart sound present GI Palpation (GI): Soft to palpation and Tenderness to palpation present (GI) General: Yes no CVA tenderness Back/Spine/Pelvis Back: no CVA tenderness Skin Lesions: lesion noted (LLE chronic ulcers, scabbed ) Rashes: no rashes Extrem General: No edema (trace LE edema on exam) Results Lab Results 06/12/24 06:18 06/12/24 06:18 Lab results: Chemistry 06/11/24 06/12/24 05:41 06:18 Sodium 138 137 Potassium 5.9 H 5.4 H Carbon Dioxide 25 22 BUN 28 H 34 H Creatinine 1.85 H 1.83 H Calcium 8.8 8.6 Hematology 06/11/24 06/12/24 05:41 06:18 WBC 8.2 9.1 Hgb 8.4 L 7.9 L Plt Count 252 239 Assessment and Plan (1) CKD stage 3 due to type 2 diabetes mellitus: Status: Acute (2) MARK (acute kidney injury): Status: Acute (3) CHF exacerbation: Qualifiers: Heart failure type: unspecified Qualified Code(s): I50.9 - Heart failure, unspecified Status: Acute (4) Acute hyperkalemia: Status: Acute Plan MARK on CKD3 likely secondary to CHF exacerbation will check urine sodium, if lower end (40-50 or lower) and urine output improving, then will increase diuretics (add metalezone or triple furosemide). If above ur Na above 80 will continue with current diuretic plan continue [facility] PRN for management of hyperkalemia continue to monitor daily electrolytes and renal function continue supportive care, avoid nephrotoxic substances will continue to follow Discussed with Dr Jreemy Sifuentes Date of Service Date of Service: 06/12/24
[2024-06-12 11:19] LABS: Glucose, Whole Blood 204 mg/dL (60-115)
--- NOTE | 2024-06-12 12:51 | HO.WOUND ---
Wound Consult: Initial 73yr old?female admitted to [facility] [place] on 06/11/24 - See progress notes and H&P for detailed history.? Wound consult placed for Left Lower Leg wounds.? Patient agreeable to assessment and photo documentation.? Bilateral Lower Legs assessed see below. Right leg intact no injury noted. Etiology is unclear the patient does have history of Diabetes and evidence to suggest Vascular disease such as Venous Dermatitis Stasis. Recommend the patient followup with Outpt wound clinic for wound healing. Recommend follow up out patient Wound Clinic at [address] [place] [address] and to call for an appointment at time of discharge. [phone].? Left Leg 03/2024 last admission Etiology: ?Unclear Etiology suspect Venous wound vs Diabetic wound Present on Admission Wound Bed: 7cm x 5cm x 0.3cm with adherent yellow slough, marbled edges with granulation buds noted Drainage / Odor: None noted at the time of my consult Edges: ? Irregular Katya wound: ?Naylor pigmentation some swelling - No Induration, Fluctuance or Warmth noted Pain: patient reports pain Goals of Treatment: ? Durafiber Ag for moisture management and autolytic debridement Recommendations: 1. Turn and Reposition every 2 hours and as needed for patient comfort.? Use pillows or wedges to support off loading positions. 2. Off Load all bony prominences with use of pillows and heel boots if needed.? Apply Preventative foams where needed. ? 3. Monitor for incontinence and moisture control, use barrier creams when needed for prevention and treatment. 4. Provide adequate and supplemental nutrition.? 5. Order low air loss mattress. 6. When applicable maintain blood glucose levels per Providers order. 7. Left Lower Legs - Elevate heels off of bed surface - Cleanse with NS, pat dry. Apply Triad to periwound, apply durfiber AG to open wound bed, cover with dry gauze, ABD pad and Elastic netting. Change every other day while inpatient. Recommend follow up out patient Wound Clinic at [address] [place] [id number] and to call for an appointment at time of discharge. [phone].? Re-consult wound care Nurse for wound deterioration or wound changes.
--- NOTE | 2024-06-12 13:35 | MHC.CM.PN ---
IMM 06/12. This CM met with pt with the assistance of a deputy county attorney. Pt lives at home with her sister, has [employer] services, and [employer] services. Pts family will transport her home. HCP on file and verified. PCP: Dr. Amanda Myers
--- NOTE | 2024-06-12 14:50 | HO.PM.IMPN ---
Subjective Subjective Date of Service: 06/12/24 Interval History: History obtained via attic blower Complaining of anxiety. Feeling better less shortness of breath, leg edema improved, denies fever, no chills, no chest pain, no palpitations, no other acute events overnight. Tolerating diet no nausea, no vomiting or abdominal pain. Review of Systems All other system reviewed and are negative. Physical Exam Vital Signs: Vital Signs: Last Vital Signs Temp 97.6 F 06/12/24 11:21 Pulse 58 06/12/24 11:21 Resp 18 06/12/24 11:21 BP 160/75 H 06/12/24 11:21 Pulse Ox 98 06/12/24 11:21 O2 Del Method Nasal Cannula 06/12/24 11:21 O2 Flow Rate 3 06/12/24 11:21 BMI result Body Mass Index 51.7 Const: Other: Gen: in no acute distress HEENT: sclera anicteric, moist mucus membranes Neck: supple, no JVD Lungs: clear to auscultation bilaterally Heart: regular rate and rhythm, Abd: soft, non-tender, bowel sounds audible Ext: no pitting edema Skin: redness + swelling around middle of L lower leg improved from yesterday, left mid leg wound present on admission venous wound versus diabetic wound , no drainage noted Neuro: alert and oriented x3, no focal findings Psych: appropriate affect Objective Data Active Medications Acetaminophen (Acetaminophen 325 Mg Tablet) 650 mg PO Q6H PRN PRN Reason: Pain, Mild (Pain Scale 1-3), fever or headache Last Admin: 06/12/24 06:26 Dose: 650 mg Documented By: DARYN Albuterol/Ipratropium (Albuterol/Iprat 2.5/0.5mg 3 Ml Ampul.Neb) 3 ml INHALE RQ4H WHILE AWAKE [facility] Last Admin: 06/12/24 11:24 Dose: Not Given Documented By: ALE Non-Admin Reason: Patient Asleep Albuterol/Ipratropium (Albuterol/Iprat 2.5/0.5mg 3 Ml Ampul.Neb) 3 ml INHALE RQ4H WHILE AWAKE PRN PRN Reason: Shortness of Breath/Wheezing Amiodarone HCl (Amiodarone Hcl 200 Mg Tablet) 200 mg PO DAILY [facility] Last Admin: 06/12/24 09:29 Dose: 200 mg Documented By: BALWINDER Apixaban (Apixaban 5 Mg Tablet) 5 mg PO BID [facility] Last Admin: 06/12/24 09:29 Dose: 5 mg Documented By: BALWINDER Aspirin (Aspirin Enteric Coated 81 Mg Tablet.) 81 mg PO BEDTIME [facility] Last Admin: 06/12/24 00:02 Dose: 81 mg Documented By: DARYN Atorvastatin Calcium (Atorvastatin Calcium 80 Mg Tablet) 80 mg PO BEDTIME [facility] Last Admin: 06/12/24 00:01 Dose: 80 mg Documented By: DARYN Benzonatate (Benzonatate 100 Mg Capsule) 100 mg PO TID PRN PRN Reason: Cough Calcium Carbonate (Calcium Carbonate 750 Mg Tab.Chew) 750 mg PO Q4H PRN PRN Reason: Heartburn Calcium Carbonate (Calcium Oyster Shell Elemental 500 Mg Tablet) 500 mg PO BID [facility] Last Admin: 06/12/24 09:29 Dose: 500 mg Documented By: BALWINDER Duloxetine HCl (Duloxetine Hcl 20 Mg Capsule.) 20 mg PO DAILY [facility] Last Admin: 06/12/24 09:29 Dose: 20 mg Documented By: BALWINDER Furosemide (Furosemide 40 Mg/4 Ml Vial) 40 mg IVPUSH DAILY [facility]; Protocol Last Admin: 06/12/24 09:30 Dose: 40 mg Documented By: BALWINDER Gabapentin (Gabapentin 100 Mg Capsule) 100 mg PO TID [facility] Last Admin: 06/12/24 09:29 Dose: 100 mg Documented By: BALWINDER Glucose (Glucose Gel 15 Gm Gel..Gram.) 15 gm PO Q15M PRN; Protocol PRN Reason: per Hypoglycemia Standing Ord. Hydroxyzine HCl (Hydroxyzine Hcl 25 Mg Tablet) 25 mg PO Q8H PRN PRN Reason: Itching Last Admin: 06/12/24 09:29 Dose: 25 mg Documented By: BALWINDER Dextrose (D10) 250 mls @ 750 mls/hr IV Q15M PRN; Protocol PRN Reason: per Hypoglycemia Standing Ord. Insulin Human Lispro (Insulin Lispro 100 Unit/Ml 3 Ml Vial) 0 unit SUBCUT QIDACHS [facility]; Protocol Last Admin: 06/12/24 12:36 Dose: 2 unit Documented By: BALWINDER Levothyroxine Sodium (Levothyroxine Sodium 50 Mcg Tablet) 50 mcg PO DAILY@0600 [facility] Last Admin: 06/12/24 06:01 Dose: 50 mcg Documented By: DARYN Magnesium Hydroxide (Milk Of Magnesia 30 Ml Oral.Susp) 30 ml PO DAILY PRN PRN Reason: Constipation Melatonin (Melatonin 3 Mg Tablet) 6 mg PO BEDTIME PRN PRN Reason: Insomnia Omeprazole (Omeprazole 40 Mg Capsule.Dr) 40 mg PO DAILY@0630 [facility] Last Admin: 06/12/24 06:01 Dose: 40 mg Documented By: DARYN Ondansetron HCl (Ondansetron Hcl 4 Mg/2 Ml Vial) 4 mg IVPUSH Q8H PRN PRN Reason: Nausea and Vomiting Oxycodone HCl (Oxycodone Hcl Immed Release 5 Mg Tablet) 1 mg PO Q6H PRN PRN Reason: Pain, Moderate(Pain Scale 4-6) Paroxetine HCl (Paroxetine Hcl 40 Mg Tablet) 40 mg PO DAILY [facility] Last Admin: 06/12/24 09:29 Dose: 40 mg Documented By: BALWINDER Sodium Chloride (0.9 % Sodium Chloride Flush 3 Ml Syringe) 3 ml IVFLUSH QSHIFT [facility] Last Admin: 06/12/24 09:35 Dose: 3 ml Documented By: BALWINDER Sodium Zirconium Cyclosilicate (Sodium Zirconium Cyclosilicate 5 Gm Powd.Pack) 5 gm PO DAILY [facility] Last Admin: 06/12/24 09:30 Dose: 5 gm Documented By: BALWINDER Trazodone HCl (Trazodone Hcl 50 Mg Tablet) 150 mg PO BEDTIME [facility] Last Admin: 06/12/24 00:01 Dose: 150 mg Documented By: DARYN Labs 06/12/24 06:18 06/12/24 06:18 Labs: Laboratory Results - last 24 hr 06/11/24 06/11/24 06/11/24 17:41 18:36 23:32 MCV MCH MCHC RDW Plt Count MPV Immature Gran % (Auto) Neut % (Auto) Lymph % (Auto) Rhea % (Auto) Eos % (Auto) Baso % (Auto) Lymph # (Auto) Rhea # (Auto) Eos # (Auto) Baso # (Auto) Abs Immat Gran (auto) Absolute Neuts (auto) Absolute Nucleated RBC Nucleated RBC % (auto) Anion Gap Estim Creat Clear Calc Estimated GFR POC Glucose 297 H 277 H Random Glucose Calcium Magnesium Ur Random Sodium COVID-19 (ANN) Negative COVID-19 Clin Com See Note 06/12/24 06/12/24 06/12/24 06:18 07:26 11:13 MCV 80.8 MCH 24.1 L MCHC 29.8 L RDW 15.0 Plt Count 239 MPV 10.4 Immature Gran % (Auto) 0.7 H Neut % (Auto) 82.6 H Lymph % (Auto) 8.5 L Rhea % (Auto) 7.9 Eos % (Auto) 0.0 Baso % (Auto) 0.3 Lymph # (Auto) 0.8 L Rhea # (Auto) 0.7 Eos # (Auto) 0.0 Baso # (Auto) 0.0 Abs Immat Gran (auto) 0.06 H Absolute Neuts (auto) 7.5 Absolute Nucleated RBC 0.000 Nucleated RBC % (auto) 0.0 Anion Gap 14 Estim Creat Clear Calc 31.0 Estimated GFR 27 POC Glucose 160 H 204 H Random Glucose 191 H Calcium 8.6 Magnesium 2.4 Ur Random Sodium COVID-19 (ANN) COVID-19 Clin Com 06/12/24 12:41 MCV MCH MCHC RDW Plt Count MPV Immature Gran % (Auto) Neut % (Auto) Lymph % (Auto) Rhea % (Auto) Eos % (Auto) Baso % (Auto) Lymph # (Auto) Rhea # (Auto) Eos # (Auto) Baso # (Auto) Abs Immat Gran (auto) Absolute Neuts (auto) Absolute Nucleated RBC Nucleated RBC % (auto) Anion Gap Estim Creat Clear Calc Estimated GFR POC Glucose Random Glucose Calcium Magnesium Ur Random Sodium 104.0 COVID-19 (ANN) COVID-19 Clin Com Microbiology Microbiology Results: Microbiology 06/11/24 06:13 Blood Culture - Preliminary Blood - Venous No growth after 24 hours. 06/11/24 05:41 Blood Culture - Preliminary Blood - Venous No growth after 24 hours. Assessment and Plan (1) MARK (acute kidney injury): Status: Acute (2) CHF exacerbation: Status: Acute (3) Acute hyperkalemia: Status: Acute Plan 73-year-old female with a PMH significant for?paroxysmal AFib on Eliquis s/p cardioversion 06/2023, CAD, HFpEF, HTN, CKD 3, insulin-dependent type 2 diabetes, asthma, and hypothyroidism who presents to the ED with SOB and difficulty breathing since last night. Pt will be admitted to the hospital for treatment and further evaluation of acute respiratory distress in the setting of acute HFpEF and asthma exacerbations. Acute respiratory distress in the setting of acute HFpEF exacerabation Feeling better, less shortness of breath, leg edema improved Continue Lasix 40mg IV daily, Follow lytes, mag, I/O,Low salt diet, daily weight Limited Echocardiogram showed EF 55-60%, grade 2 diastolic dysfunction Acute intermittent asthma exacerbation Resolved, denies shortness of breath or wheeze Titrate supplemental O2 >92, wean as tolerated on Duonebs q.4 hours will transition to q.i.d. Does not appear to be on home inhalers Monitor respiratory status MARK on CKD 3 Creatinine unchanged since yesterday 1.83 today , baseline around 1.28 Likely cardiorenal in the setting of above Seen by endo tech case discussed with Dr. Verma he recommend to continue current treatment, urinary sodium 104 Follow kidney function Hyperkalemia Potassium 5.9 at time presentation, improved to 5.4 Likely in the setting of worsening kidney function Will repeat Lokelma 5 mg and Follow potassium Chronic lower left wound Does not appear grossly infected, seen by wound nurse follow on care as recommended Paroxysmal AFib Continue amiodarone, Eliquis HTN BP soft on admission now trending up will resume amlodipine and metoprolol CAD/HLD Continue aspirin, statin Insulin-dependent type 2 diabetes blood sugars around 200, continue Sliding-scale insulin, Lantus and Diabetic diet Peripheral neuropathy Continue gabapentin Full Code DVT Prophylaxis: On Eliquis In my clinical judgment patient requires continued inpatient hospitalization for?acute respiratory distress and MARK in the setting of acute HFpEF exacerbation. Quality Stroke Does the patient have a stroke diagnosis?: No VTE Prior VTE?: No VTE Risk Level:: Medical - moderate - high VTE Device Contraindication: Treatment Not Indicated VTE Drug Contraindication: N/A - Med Ordered
[2024-06-12 16:03] LABS: Glucose, Whole Blood 185 mg/dL (60-115)
[2024-06-12] MEDS: amLODIPine Besylate 5 MG TABLET PO (16:11)
[2024-06-12 20:46] LABS: Glucose, Whole Blood 235 mg/dL (60-115)
[2024-06-13] VITALS (10 sets, daily range): BP systolic 114–164; BP diastolic 61–99; PULSE 62–80; RESP 16–20; TEMP 36.1–36.8; O2SAT 95–98
[2024-06-13] MEDS: hydrOXYzine HCL 25 MG TABLET PO ×2 (03:26→20:28)
[2024-06-13] MEDS: Albuterol/Iprat 2.5/0.5MG 3 ML AMPUL.NEB INHALE ×4 (03:31→18:50)
[2024-06-13] MEDS: Levothyroxine Sodium 50 MCG TABLET PO (05:31)
[2024-06-13] MEDS: Omeprazole 40 MG CAPSULE.DR PO (05:31)
[2024-06-13 06:46] LABS: Anion Gap 13 (12-20); Blood Urea Nitrogen 35 mg/dL (9-16); Calcium 8.4 mg/dL (8.4-10.2); Carbon Dioxide 27 mmol/L (22-29); Chloride 105 mmol/L (96-108); Creatinine Clr Calc Pharmacy 35.2; Estimated Glomerular Filt Rate 32; Glucose Random 163 mg/dL (60-115); Potassium 5.8 mmol/L (3.3-5.1); Sodium 139 mmol/L (135-145)
[2024-06-13 07:23] LABS: Glucose, Whole Blood 148 mg/dL (60-115)
[2024-06-13] MEDS: Gabapentin 100 MG CAPSULE PO ×3 (08:18→20:27)
[2024-06-13] MEDS: Furosemide 40 MG/4 ML VIAL IVPUSH (08:18)
[2024-06-13] MEDS: Sodium Zirconium Cyclosilicate 5 GM POWD.PACK PO (08:18)
[2024-06-13] MEDS: Amiodarone HCL 200 MG TABLET PO (08:18)
[2024-06-13] MEDS: PARoxetine HCL 40 MG TABLET PO (08:18)
[2024-06-13] MEDS: amLODIPine Besylate 5 MG TABLET PO (08:18)
[2024-06-13] MEDS: Apixaban 5 MG TABLET PO ×2 (08:18→20:27)
[2024-06-13] MEDS: Metoprolol Succinate ER 50 MG TAB.ER.24H PO (08:18)
[2024-06-13] MEDS: Calcium Oyster Shell Elemental 500 MG TABLET PO ×2 (08:19→20:28)
[2024-06-13] MEDS: 0.9 % Sodium Chloride Flush 3 ML SYRINGE IVFLUSH ×3 (08:19→22:01)
[2024-06-13] MEDS: DULoxetine HCl 20 MG CAPSULE.DR PO (08:19)
[2024-06-13 10:58] LABS: Glucose, Whole Blood 211 mg/dL (60-115)
--- NOTE | 2024-06-13 11:14 | P.PNNP_ITS ---
Subjective Subjective Date of Service: 06/13/24 Interval history: 73 y/o female with a medical history of afib, CAD, HFpEF, HTN, CKD3, DMII, asthma, hypothyroidism, wheelchair bound. Presented to ED on 06/11 with shortness of breath since night prior, BLE edema, home lasix reportedly held since 03/20 due to worsening renal function. patient is being treated for asthma and HF exacerabtion. Nephrology consulted for MARK on CKD3 Creatinine baseline 1.28, on 06/11 1.87, 06/12 is 1.83, 06/13 is 1. 60 Potassium has been elevated, 06/11 5.9, 06/12 is 5.4, 06/13 5.8 - receiving lokelma PRN UOP 900mL over previous 24 hours has been receiving IVP lasix 40mg daily she denies chest pain, dizziness reports today breathing is comfortable states she is urinating comfortably/regularly She denies other concerns/complaints Physical Exam 2 Vital Signs: Vital Signs: Last Vital Signs Temp 97.0 F 06/13/24 11:03 Pulse 63 06/13/24 11:03 Resp 20 06/13/24 11:03 BP 162/67 H 06/13/24 11:03 Pulse Ox 95 06/13/24 11:03 O2 Del Method Nasal Cannula 06/13/24 11:03 O2 Flow Rate 1 06/13/24 11:03 BMI result Body Mass Index 51.7 Const: General: no acute distress, alert and awake Resp: Effort & Inspection: normal respiratory effort and able to speak in complete sentences Auscultation: rhonchi Cardio: Jugular venous distension: no JVD Rate: regular rate Heart sounds: S1 normal heart sound present and S2 normal heart sound present GI: Palpation (GI): Soft to palpation and Tenderness to palpation present (GI) : General: Yes no CVA tenderness Back/Spine/Pelvis: Back: no CVA tenderness Skin: Lesions: lesion noted (LLE chronic ulcers, scabbed ) Rashes: no rashes Extrem: General: No edema (trace LE edema on exam) Objective Data Labs 06/12/24 06:18 06/13/24 06:09 Labs: Laboratory Results - last 24 hr 06/12/24 06/12/24 06/12/24 11:13 12:41 15:54 Sodium Potassium Chloride Carbon Dioxide Anion Gap BUN Creatinine Estim Creat Clear Calc Estimated GFR POC Glucose 204 H 185 H Random Glucose Calcium Ur Random Sodium 104.0 06/12/24 06/13/24 06/13/24 20:32 06:09 07:13 Sodium 139 Potassium 5.8 H Chloride 105 Carbon Dioxide 27 Anion Gap 13 BUN 35 H Creatinine 1.60 H Estim Creat Clear Calc 35.2 Estimated GFR 32 POC Glucose 235 H 148 H Random Glucose 163 H Calcium 8.4 Ur Random Sodium 06/13/24 10:50 Sodium Potassium Chloride Carbon Dioxide Anion Gap BUN Creatinine Estim Creat Clear Calc Estimated GFR POC Glucose 211 H Random Glucose Calcium Ur Random Sodium Microbiology Microbiology Results: Microbiology 06/11/24 05:41 Blood - Venous Blood Culture - Preliminary Prelim: GNR Gram Stain only 06/11/24 06:13 Blood - Venous Blood Culture - Preliminary No growth after 48 hours. Procedures Date of Service Date of Service: 06/13/24 Assessment & Plan Assessment and plan (1) CKD stage 3 due to type 2 diabetes mellitus: Status: Acute (2) MARK (acute kidney injury): Status: Acute (3) CHF exacerbation: Status: Acute (4) Acute hyperkalemia: Status: Acute Plan MARK on CKD3 likely secondary to CHF exacerbation urine sodium 104, adequate response to diuretics, creatinine is continuing to improve- recommend continuing current diuretic plan furosemide 40mg IVP daily hyperkalemia steve secondary to heart failure, anticipate potassium levels to improve as heart failure and renal function continue to improve with diuresis continue lokelma PRN for management of hyperkalemia, in addition to low potassium diet continue to monitor daily electrolytes and renal function continue supportive care, avoid nephrotoxic substances will continue to follow Discussed with Dr Luna Time Spent With Patient Time: Total time managing care of this patient today ____ minutes. Progress Note: Quality Stroke Does the patient have a stroke diagnosis?: No
[2024-06-13] MEDS: Insulin Lispro 100 UNIT/ML 3 ML VIAL SUBCUT ×3 (11:41→22:00)
[2024-06-13] MEDS: cefTRIAXone sodium 2 GM VIAL IVPUSH (11:42)
[2024-06-13 12:20] LABS: Appearance Urine Clear; Color Urine Yellow; Glucose Urine UA >=1000 mg/dL (Negative); Leukocyte Esterase Urine Moderate (2+) (Negative); Nitrite Urine Negative (Negative); PH 5.5 (5.0-9.0); UMIC TRIGGER UACC YES; Urine Blood Negative (Negative); Urine Ketones Negative (Negative); Urine Protein Negative (Neg-Trace)
[2024-06-13 12:35] LABS: Bacteria Urine None Seen (None Seen); Hyaline Casts Urine 0-2 /LPF (0-2); RBC Urine 0-2 /HPF (0-2); UACC Culture Trigger YES
--- NOTE | 2024-06-13 16:11 | HO.PM.IMPN ---
Subjective Subjective Date of Service: 06/13/24 Interval History: History obtained via bonderite operator, patient resting comfortably offers no acute complaints of pain, no shortness of breath, no nausea, no vomiting, no abdominal pain or diarrhea no acute events overnight. Review of Systems All other systems reviewed and are negative. Physical Exam Vital Signs: Vital Signs: Last Vital Signs Temp 97.0 F 06/13/24 11:03 Pulse 78 06/13/24 15:28 Resp 18 06/13/24 15:28 BP 162/67 H 06/13/24 11:03 Pulse Ox 95 06/13/24 11:03 O2 Del Method Nasal Cannula 06/13/24 11:03 O2 Flow Rate 1 06/13/24 11:03 BMI result Body Mass Index 51.7 Const: Other: Gen: in no acute distress HEENT: sclera anicteric, moist mucus membranes Neck: supple, no JVD Lungs: clear to auscultation bilaterally Heart: regular rate and rhythm, Abd: soft, obese, non-tender, bowel sounds audible Ext: no pitting edema Skin: redness + swelling around middle of L lower leg improved from yesterday, left mid leg wound present on admission venous wound versus diabetic wound , no drainage noted Neuro: alert and oriented x3, no focal findings Psych: appropriate affect Objective Data Active Medications Acetaminophen (Acetaminophen 325 Mg Tablet) 650 mg PO Q6H PRN PRN Reason: Pain, Mild (Pain Scale 1-3), fever or headache Last Admin: 06/12/24 06:26 Dose: 650 mg Documented By: DARYN Albuterol/Ipratropium (Albuterol/Iprat 2.5/0.5mg 3 Ml Ampul.Neb) 3 ml INHALE RQ4H WHILE AWAKE PRN PRN Reason: Shortness of Breath/Wheezing Last Admin: 06/13/24 03:31 Dose: 3 ml Documented By: LUNA Albuterol/Ipratropium (Albuterol/Iprat 2.5/0.5mg 3 Ml Ampul.Neb) 3 ml INHALE RQ6H WHILE AWAKE [facility] Last Admin: 06/13/24 15:27 Dose: 3 ml Documented By: ARTIE Amiodarone HCl (Amiodarone Hcl 200 Mg Tablet) 200 mg PO DAILY [facility] Last Admin: 06/13/24 08:18 Dose: 200 mg Documented By: HERBER Amlodipine Besylate (Amlodipine Besylate 5 Mg Tablet) 5 mg PO DAILY [facility]; Protocol Last Admin: 06/13/24 08:18 Dose: 5 mg Documented By: HERBER Apixaban (Apixaban 5 Mg Tablet) 5 mg PO BID [facility] Last Admin: 06/13/24 08:18 Dose: 5 mg Documented By: HERBER Aspirin (Aspirin Enteric Coated 81 Mg Tablet.) 81 mg PO BEDTIME [facility] Last Admin: 06/12/24 20:47 Dose: 81 mg Documented By: BRANNON Atorvastatin Calcium (Atorvastatin Calcium 80 Mg Tablet) 80 mg PO BEDTIME [facility] Last Admin: 06/12/24 20:48 Dose: 80 mg Documented By: BRANNON Benzonatate (Benzonatate 100 Mg Capsule) 100 mg PO TID PRN PRN Reason: Cough Calcium Carbonate (Calcium Carbonate 750 Mg Tab.Chew) 750 mg PO Q4H PRN PRN Reason: Heartburn Calcium Carbonate (Calcium Oyster Shell Elemental 500 Mg Tablet) 500 mg PO BID [facility] Last Admin: 06/13/24 08:19 Dose: 500 mg Documented By: HERBER Ceftriaxone Sodium (Ceftriaxone Sodium 2 Gm Vial) 2 gm IVPUSH Q24H [facility] Last Admin: 06/13/24 11:42 Dose: 2 gm Documented By: HERBER Duloxetine HCl (Duloxetine Hcl 20 Mg Capsule.) 20 mg PO DAILY [facility] Last Admin: 06/13/24 08:19 Dose: 20 mg Documented By: HERBER Furosemide (Furosemide 40 Mg/4 Ml Vial) 40 mg IVPUSH DAILY [facility]; Protocol Last Admin: 06/13/24 08:18 Dose: 40 mg Documented By: HERBER Gabapentin (Gabapentin 100 Mg Capsule) 100 mg PO TID [facility] Last Admin: 06/13/24 08:18 Dose: 100 mg Documented By: HERBER Glucose (Glucose Gel 15 Gm Gel..Gram.) 15 gm PO Q15M PRN; Protocol PRN Reason: per Hypoglycemia Standing Ord. Hydroxyzine HCl (Hydroxyzine Hcl 25 Mg Tablet) 25 mg PO Q8H PRN PRN Reason: Itching Last Admin: 06/13/24 03:26 Dose: 25 mg Documented By: BRANNON Dextrose (D10) 250 mls @ 750 mls/hr IV Q15M PRN; Protocol PRN Reason: per Hypoglycemia Standing Ord. Insulin Human Lispro (Insulin Lispro 100 Unit/Ml 3 Ml Vial) 0 unit SUBCUT QIDACHS [facility]; Protocol Last Admin: 06/13/24 11:41 Dose: 4 unit Documented By: HERBER Levothyroxine Sodium (Levothyroxine Sodium 50 Mcg Tablet) 50 mcg PO DAILY@0600 [facility] Last Admin: 06/13/24 05:31 Dose: 50 mcg Documented By: BRANNON Magnesium Hydroxide (Milk Of Magnesia 30 Ml Oral.Susp) 30 ml PO DAILY PRN PRN Reason: Constipation Melatonin (Melatonin 3 Mg Tablet) 6 mg PO BEDTIME PRN PRN Reason: Insomnia Metoprolol Succinate (Metoprolol Succinate Er 50 Mg Tab.Er.24h) 50 mg PO DAILY [facility]; Protocol Last Admin: 06/13/24 08:18 Dose: 50 mg Documented By: HERBER Omeprazole (Omeprazole 40 Mg Capsule.Dr) 40 mg PO DAILY@0630 [facility] Last Admin: 06/13/24 05:31 Dose: 40 mg Documented By: BRANNON Ondansetron HCl (Ondansetron Hcl 4 Mg/2 Ml Vial) 4 mg IVPUSH Q8H PRN PRN Reason: Nausea and Vomiting Oxycodone HCl (Oxycodone Hcl Immed Release 5 Mg Tablet) 1 mg PO Q6H PRN PRN Reason: Pain, Moderate(Pain Scale 4-6) Paroxetine HCl (Paroxetine Hcl 40 Mg Tablet) 40 mg PO DAILY [facility] Last Admin: 06/13/24 08:18 Dose: 40 mg Documented By: HERBER Sodium Chloride (0.9 % Sodium Chloride Flush 3 Ml Syringe) 3 ml IVFLUSH QSHIFT [facility] Last Admin: 06/13/24 08:19 Dose: 3 ml Documented By: HERBER Sodium Zirconium Cyclosilicate (Sodium Zirconium Cyclosilicate 5 Gm Powd.Pack) 5 gm PO DAILY [facility] Last Admin: 06/13/24 08:18 Dose: 5 gm Documented By: HERBER Trazodone HCl (Trazodone Hcl 50 Mg Tablet) 150 mg PO BEDTIME [facility] Last Admin: 06/12/24 20:47 Dose: 150 mg Documented By: BRANNON Labs 06/12/24 06:18 06/13/24 06:09 Labs: Laboratory Results - last 24 hr 06/12/24 06/13/24 06/13/24 20:32 06:09 07:13 Anion Gap 13 Estim Creat Clear Calc 35.2 Estimated GFR 32 POC Glucose 235 H 148 H Random Glucose 163 H Calcium 8.4 Urine Color Urine Appearance Urine pH Ur Specific Granite Urine Protein Urine Glucose (UA) Urine Ketones Urine Blood Urine Nitrite Ur Leukocyte Esterase Urine RBC Urine WBC Ur Squamous Epith Cells Urine Bacteria Hyaline Casts Urine Yeast 06/13/24 06/13/24 10:50 12:05 Anion Gap Estim Creat Clear Calc Estimated GFR POC Glucose 211 H Random Glucose Calcium Urine Color Yellow Urine Appearance Clear Urine pH 5.5 Ur Specific Granite 1.010 Urine Protein Negative Urine Glucose (UA) >=1000 H Urine Ketones Negative Urine Blood Negative Urine Nitrite Negative Ur Leukocyte Esterase Moderate (2+) H Urine RBC 0-2 Urine WBC 6-10 H Ur Squamous Epith Cells 3-5 Urine Bacteria None Seen Hyaline Casts 0-2 Urine Yeast Present Microbiology Microbiology Results: Microbiology 06/11/24 05:41 Blood Culture - Preliminary Blood - Venous Prelim: GNR Gram Stain only 06/11/24 06:13 Blood Culture - Preliminary Blood - Venous No growth after 48 hours. Assessment and Plan (1) MARK (acute kidney injury): Status: Acute (2) CHF exacerbation: Status: Acute (3) Acute hyperkalemia: Status: Acute Plan 73-year-old female with a PMH significant for?paroxysmal AFib on Eliquis s/p cardioversion 06/2023, CAD, HFpEF, HTN, CKD 3, insulin-dependent type 2 diabetes, asthma, and hypothyroidism who presents to the ED with SOB and difficulty breathing since last night. Pt will be admitted to the hospital for treatment and further evaluation of acute respiratory distress in the setting of acute HFpEF and asthma exacerbations. Acute respiratory distress in the setting of acute HFpEF exacerabation Feeling better, less shortness of breath, leg edema improved Continue Lasix 40mg IV daily, Follow lytes, mag, I/O,Low salt diet, daily weight Limited Echocardiogram showed EF 55-60%, grade 2 diastolic dysfunction Gram-negative dulce bacteremia Normal WBC, no fevers 1/2 blood culture positive for Gram-negative rods UA unremarkable, chest x-ray showed increased pulmonary vascularity no consolidation No abdominal pain, likely from skin Follow final culture report, consider CT abdomen and pelvis Acute intermittent asthma exacerbation Resolved, denies shortness of breath or wheeze Titrate supplemental O2 >92, wean as tolerated on Duonebs q.4 hours will transition to q.i.d. Does not appear to be on home inhalers Monitor respiratory status MARK on CKD 3 Creatinine trending down from 1.83 to 1.6 , baseline around 1.28 Likely cardiorenal in the setting of above Seen by facilities maintenance assistant case discussed with Dr. Verma he recommend to continue current treatment, urinary sodium 104 Follow kidney function Hyperkalemia Potassium 5.9 at time presentation, remains elevated at 5.8 Likely in the setting of worsening kidney function Continue Lokelma 5 mg and Follow potassium, likely will improve with diuresis Chronic lower left wound Does not appear grossly infected, seen by wound nurse follow on care as recommended, follow blood cultures Paroxysmal AFib Continue amiodarone, Eliquis HTN BP soft on admission now trending up will resume amlodipine and metoprolol and follow BP CAD/HLD Continue aspirin, statin Insulin-dependent type 2 diabetes blood sugars around 200, continue Sliding-scale insulin, Lantus and Diabetic diet Peripheral neuropathy Continue gabapentin Full Code DVT Prophylaxis: On Eliquis In my clinical judgment patient requires continued inpatient hospitalization for?acute respiratory distress and MARK in the setting of acute HFpEF exacerbation and IV antibiotics for bacteremia.. Quality Stroke Does the patient have a stroke diagnosis?: No VTE Prior VTE?: No VTE Risk Level:: Medical - moderate - high VTE Device Contraindication: Treatment Not Indicated VTE Drug Contraindication: N/A - Med Ordered
[2024-06-13 16:44] LABS: Glucose, Whole Blood 185 mg/dL (60-115)
[2024-06-13] MEDS: Acetaminophen 325 MG TABLET 650 MG PO (20:27)
[2024-06-13] MEDS: traZODone HCL 50 MG TABLET 150 MG PO (20:28)
[2024-06-13] MEDS: Atorvastatin Calcium 80 MG TABLET PO (20:28)
[2024-06-13] MEDS: Aspirin Enteric Coated 81 MG TABLET.DR PO (20:28)
[2024-06-13 21:14] LABS: Glucose, Whole Blood 226 mg/dL (60-115)
[2024-06-14] VITALS (8 sets, daily range): BP systolic 115–156; BP diastolic 56–73; PULSE 54–65; RESP 16–20; TEMP 36.2–36.4; O2SAT 84–98
[2024-06-14] MEDS: Acetaminophen 325 MG TABLET 650 MG PO ×2 (02:11→20:28)
[2024-06-14] MEDS: Omeprazole 40 MG CAPSULE.DR PO (05:35)
[2024-06-14] MEDS: Levothyroxine Sodium 50 MCG TABLET PO (05:35)
[2024-06-14 07:12] LABS: Glucose, Whole Blood 129 mg/dL (60-115)
[2024-06-14 07:16] LABS: Anion Gap 14 (12-20); Blood Urea Nitrogen 36 mg/dL (9-16); Calcium 8.2 mg/dL (8.4-10.2); Carbon Dioxide 27 mmol/L (22-29); Chloride 104 mmol/L (96-108); Creatinine Clr Calc Pharmacy 39.7; Estimated Glomerular Filt Rate 36; Glucose Random 123 mg/dL (60-115); Potassium 5.6 mmol/L (3.3-5.1); Sodium 139 mmol/L (135-145)
[2024-06-14] MEDS: Albuterol/Iprat 2.5/0.5MG 3 ML AMPUL.NEB INHALE ×2 (07:49→19:26)
--- NOTE | 2024-06-14 08:20 | P.PNNP_ITS ---
Subjective Subjective Date of Service: 06/14/24 Interval history: 73 y/o female with a medical history of afib, CAD, HFpEF, HTN, CKD3, DMII, asthma, hypothyroidism, wheelchair bound. Presented to ED on 06/11 with shortness of breath since night prior, BLE edema, home lasix reportedly held since 03/20 due to worsening renal function. patient is being treated for asthma and HF exacerabtion. Nephrology consulted for MARK on CKD3 Creatinine baseline 1.28, on 06/11 1.87, 06/12 is 1.83, 06/13 was 1.60, 06/14 1.42 Potassium has been elevated, 06/11 5.9, 06/12 is 5.4, 06/13 5.8, 06/14 5.6 - receiving lokelma PRN UOP 2100mL over previous 24 hours Ur Sodium 104 on 06/12 has been receiving IVP lasix 40mg daily she denies chest pain, dizziness reports today breathing is comfortable states she is urinating comfortably/regularly She denies other concerns/complaints Physical Exam 2 Vital Signs: Vital Signs: Last Vital Signs Temp 97.5 F 06/14/24 11:14 Pulse 54 06/14/24 11:14 Resp 17 06/14/24 11:14 BP 143/69 H 06/14/24 11:14 Pulse Ox 96 06/14/24 11:14 O2 Del Method Nasal Cannula 06/14/24 11:14 O2 Flow Rate 2 06/14/24 11:14 BMI result Body Mass Index 51.7 Const: General: no acute distress, alert and awake Resp: Effort & Inspection: normal respiratory effort and able to speak in complete sentences Auscultation: rhonchi Cardio: Jugular venous distension: no JVD Rate: regular rate Heart sounds: S1 normal heart sound present and S2 normal heart sound present GI: Palpation (GI): Soft to palpation and Tenderness to palpation present (GI) : General: Yes no CVA tenderness Back/Spine/Pelvis: Back: no CVA tenderness Skin: Lesions: lesion noted (LLE chronic ulcers, scabbed ) Rashes: no rashes Extrem: General: No edema (trace LE edema on exam) Objective Data Labs 06/12/24 06:18 06/14/24 06:27 Labs: Laboratory Results - last 24 hr 06/13/24 06/13/2406/14/24 16:23 21:05 06:27 Sodium 139 Potassium 5.6 H Chloride 104 Carbon Dioxide 27 Anion Gap 14 BUN 36 H Creatinine 1.42 H Estim Creat Clear Calc 39.7 Estimated GFR 36 POC Glucose 185 H 226 H Random Glucose 123 H Calcium 8.2 L 06/14/24 06/14/24 07:06 10:57 Sodium Potassium Chloride Carbon Dioxide Anion Gap BUN Creatinine Estim Creat Clear Calc Estimated GFR POC Glucose 129 H 283 H Random Glucose Calcium Microbiology Microbiology Results: Microbiology 06/11/24 05:41 Blood - Venous Blood Culture - Preliminary Prelim: GNR Gram Stain only 06/13/24 12:05 Urine clean catch - Clean Catch Midstream Urine Culture - Final 06/11/24 06:13 Blood - Venous Blood Culture - Preliminary No growth after 48 hours. Procedures Date of Service Date of Service: 06/14/24 Assessment & Plan Assessment and plan (1) CKD stage 3 due to type 2 diabetes mellitus: Status: Acute (2) MARK (acute kidney injury): Status: Acute (3) CHF exacerbation: Status: Acute (4) Acute hyperkalemia: Status: Acute Plan MARK on CKD3 likely secondary to CHF exacerbation pt having adequate response to diuretics, creatinine is continuing to improve- recommend continuing current diuretic plan furosemide 40mg IVP daily hyperkalemia likely secondary to heart failure, anticipate potassium levels to improve as heart failure and renal function continue to improve with diuresis continue lokelma PRN for management of hyperkalemia, in addition to low potassium diet continue to monitor daily electrolytes and renal function continue supportive care, avoid nephrotoxic substances will continue to follow Discussed with Dr Luna Time Spent With Patient Time: Total time managing care of this patient today ____ minutes. Progress Note: Quality Stroke Does the patient have a stroke diagnosis?: No
[2024-06-14] MEDS: amLODIPine Besylate 5 MG TABLET PO (08:24)
[2024-06-14] MEDS: Amiodarone HCL 200 MG TABLET PO (08:24)
[2024-06-14] MEDS: DULoxetine HCl 20 MG CAPSULE.DR PO (08:24)
[2024-06-14] MEDS: Calcium Oyster Shell Elemental 500 MG TABLET PO ×2 (08:25→20:28)
[2024-06-14] MEDS: Apixaban 5 MG TABLET PO ×2 (08:25→20:28)
[2024-06-14] MEDS: Gabapentin 100 MG CAPSULE PO ×3 (08:25→20:28)
[2024-06-14] MEDS: PARoxetine HCL 40 MG TABLET PO (08:25)
[2024-06-14] MEDS: Metoprolol Succinate ER 50 MG TAB.ER.24H PO (08:25)
[2024-06-14] MEDS: Sodium Zirconium Cyclosilicate 5 GM POWD.PACK PO (08:26)
[2024-06-14] MEDS: 0.9 % Sodium Chloride Flush 3 ML SYRINGE IVFLUSH ×3 (08:26→23:52)
[2024-06-14] MEDS: Furosemide 40 MG/4 ML VIAL IVPUSH (08:26)
[2024-06-14 11:05] LABS: Glucose, Whole Blood 283 mg/dL (60-115)
[2024-06-14] MEDS: cefTRIAXone sodium 2 GM VIAL IVPUSH (12:25)
[2024-06-14] MEDS: Insulin Lispro 100 UNIT/ML 3 ML VIAL SUBCUT ×3 (12:26→20:38)
[2024-06-14] MEDS: hydrOXYzine HCL 25 MG TABLET PO ×2 (12:29→20:28)
[2024-06-14 16:17] LABS: Glucose, Whole Blood 212 mg/dL (60-115)
--- NOTE | 2024-06-14 16:32 | P.PNIM_ITS ---
Subjective Subjective Date of Service: 06/14/24 Interval History: Complaining of chronic urinary burning and incontinence, denies fever chills, shortness of breath resolved, no cough, offers no other acute symptoms. Review of Systems All other system reviewed and are negative Physical Exam 2 Vital Signs: Vital Signs: Last Vital Signs Temp 97.6 F 06/14/24 15:07 Pulse 55 06/14/24 15:07 Resp 20 06/14/24 15:07 BP 115/56 L 06/14/24 15:07 Pulse Ox 96 06/14/24 15:07 O2 Del Method Nasal Cannula 06/14/24 15:07 O2 Flow Rate 2 06/14/24 15:07 BMI result Body Mass Index 51.7 Const: Other: Gen: in no acute distress HEENT: sclera anicteric, moist mucus membranes Neck: supple, no JVD Lungs: clear to auscultation bilaterally Heart: regular rate and rhythm, Abd: soft, obese, non-tender, bowel sounds audible Ext: no pitting edema Skin: redness + swelling around middle of L lower leg improved from yesterday, left mid leg wound present on admission venous wound versus diabetic wound , no drainage noted Moist hyperemic perineal folds Neuro: alert and oriented x3, no focal findings Psych: appropriate affect Objective Data Active Medications Acetaminophen (Acetaminophen 325 Mg Tablet) 650 mg PO Q6H PRN PRN Reason: Pain, Mild (Pain Scale 1-3), fever or headache Last Admin: 06/14/24 02:11 Dose: 650 mg Documented By: SHARONA Albuterol/Ipratropium (Albuterol/Iprat 2.5/0.5mg 3 Ml Ampul.Neb) 3 ml INHALE RQ4H WHILE AWAKE PRN PRN Reason: Shortness of Breath/Wheezing Last Admin: 06/13/24 03:31 Dose: 3 ml Documented By: LUNA Albuterol/Ipratropium (Albuterol/Iprat 2.5/0.5mg 3 Ml Ampul.Neb) 3 ml INHALE RQ6H WHILE AWAKE [facility] Last Admin: 06/14/24 14:40 Dose: Not Given Documented By: ALE Non-Admin Reason: Patient Asleep Amiodarone HCl (Amiodarone Hcl 200 Mg Tablet) 200 mg PO DAILY [facility] Last Admin: 06/14/24 08:24 Dose: 200 mg Documented By: HERBER Amlodipine Besylate (Amlodipine Besylate 5 Mg Tablet) 5 mg PO DAILY [facility]; Protocol Last Admin: 06/14/24 08:24 Dose: 5 mg Documented By: HERBER Apixaban (Apixaban 5 Mg Tablet) 5 mg PO BID [facility] Last Admin: 06/14/24 08:25 Dose: 5 mg Documented By: HERBER Aspirin (Aspirin Enteric Coated 81 Mg Tablet.) 81 mg PO BEDTIME [facility] Last Admin: 06/13/24 20:28 Dose: 81 mg Documented By: SHARONA Atorvastatin Calcium (Atorvastatin Calcium 80 Mg Tablet) 80 mg PO BEDTIME [facility] Last Admin: 06/13/24 20:28 Dose: 80 mg Documented By: SHARONA Benzonatate (Benzonatate 100 Mg Capsule) 100 mg PO TID PRN PRN Reason: Cough Calcium Carbonate (Calcium Carbonate 750 Mg Tab.Chew) 750 mg PO Q4H PRN PRN Reason: Heartburn Calcium Carbonate (Calcium Oyster Shell Elemental 500 Mg Tablet) 500 mg PO BID [facility] Last Admin: 06/14/24 08:25 Dose: 500 mg Documented By: HERBER Ceftriaxone Sodium (Ceftriaxone Sodium 2 Gm Vial) 2 gm IVPUSH Q24H [facility] Last Admin: 06/14/24 12:25 Dose: 2 gm Documented By: HERBER Duloxetine HCl (Duloxetine Hcl 20 Mg Capsule.) 20 mg PO DAILY [facility] Last Admin: 06/14/24 08:24 Dose: 20 mg Documented By: HERBER Furosemide (Furosemide 40 Mg/4 Ml Vial) 40 mg IVPUSH DAILY [facility]; Protocol Last Admin: 06/14/24 08:26 Dose: 40 mg Documented By: HERBER Gabapentin (Gabapentin 100 Mg Capsule) 100 mg PO TID [facility] Last Admin: 06/14/24 08:25 Dose: 100 mg Documented By: HERBER Glucose (Glucose Gel 15 Gm Gel..Gram.) 15 gm PO Q15M PRN; Protocol PRN Reason: per Hypoglycemia Standing Ord. Hydroxyzine HCl (Hydroxyzine Hcl 25 Mg Tablet) 25 mg PO Q8H PRN PRN Reason: Itching Last Admin: 06/14/24 12:29 Dose: 25 mg Documented By: HERBER Dextrose (D10) 250 mls @ 750 mls/hr IV Q15M PRN; Protocol PRN Reason: per Hypoglycemia Standing Ord. Insulin Human Lispro (Insulin Lispro 100 Unit/Ml 3 Ml Vial) 0 unit SUBCUT QIDACHS [facility]; Protocol Last Admin: 06/14/24 12:26 Dose: 6 unit Documented By: HERBER Levothyroxine Sodium (Levothyroxine Sodium 50 Mcg Tablet) 50 mcg PO DAILY@0600 [facility] Last Admin: 06/14/24 05:35 Dose: 50 mcg Documented By: SHARONA Magnesium Hydroxide (Milk Of Magnesia 30 Ml Oral.Susp) 30 ml PO DAILY PRN PRN Reason: Constipation Melatonin (Melatonin 3 Mg Tablet) 6 mg PO BEDTIME PRN PRN Reason: Insomnia Metoprolol Succinate (Metoprolol Succinate Er 50 Mg Tab.Er.24h) 50 mg PO DAILY [facility]; Protocol Last Admin: 06/14/24 08:25 Dose: 50 mg Documented By: HERBER Omeprazole (Omeprazole 40 Mg Capsule.Dr) 40 mg PO DAILY@0630 [facility] Last Admin: 06/14/24 05:35 Dose: 40 mg Documented By: SHARONA Ondansetron HCl (Ondansetron Hcl 4 Mg/2 Ml Vial) 4 mg IVPUSH Q8H PRN PRN Reason: Nausea and Vomiting Oxycodone HCl (Oxycodone Hcl Immed Release 5 Mg Tablet) 1 mg PO Q6H PRN PRN Reason: Pain, Moderate(Pain Scale 4-6) Paroxetine HCl (Paroxetine Hcl 40 Mg Tablet) 40 mg PO DAILY [facility] Last Admin: 06/14/24 08:25 Dose: 40 mg Documented By: HERBER Sodium Chloride (0.9 % Sodium Chloride Flush 3 Ml Syringe) [facility] Last Admin: 06/14/24 08:26 Dose: 3 ml Documented By: HERBER Sodium Zirconium Cyclosilicate (Sodium Zirconium Cyclosilicate 5 Gm Powd.Pack) 5 gm PO DAILY [facility] Last Admin: 06/14/24 08:26 Dose: 5 gm Documented By: HERBER Trazodone HCl (Trazodone Hcl 50 Mg Tablet) 150 mg PO BEDTIME [facility] Last Admin: 06/13/24 20:28 Dose: 150 mg Documented By: SHARONA Labs 06/12/24 06:18 06/14/24 06:27 Labs: Laboratory Results - last 24 hr 06/13/24 06/13/24 06/14/24 16:23 21:05 06:27 Anion Gap 14 Estim Creat Clear Calc 39.7 Estimated GFR 36 POC Glucose 185 H 226 H Random Glucose 123 H Calcium 8.2 L 06/14/24 06/14/24 06/14/24 07:06 10:57 16:08 Anion Gap Estim Creat Clear Calc Estimated GFR POC Glucose 129 H 283 H 212 H Random Glucose Calcium Microbiology Microbiology Results: Microbiology 06/11/24 05:41 Blood Culture - Preliminary Blood - Venous Prelim: GNR Gram Stain only 06/13/24 12:05 Urine Culture - Final Urine clean catch - Clean Catch Midstream Assessment and Plan (1) MARK (acute kidney injury): Status: Acute (2) CHF exacerbation: Status: Acute Plan 73-year-old female with a PMH significant for?paroxysmal AFib on Eliquis s/p cardioversion 06/2023, CAD, HFpEF, HTN, CKD 3, insulin-dependent type 2 diabetes, asthma, and hypothyroidism who presents to the ED with SOB and difficulty breathing since last night. Pt will be admitted to the hospital for treatment and further evaluation of acute respiratory distress in the setting of acute HFpEF and asthma exacerbations. Acute respiratory distress in the setting of acute HFpEF exacerabation Feeling better, less shortness of breath, leg edema improved Continue Lasix 40mg IV daily, Follow marifer, , I/O,Low salt diet, daily weight Limited Echocardiogram showed EF 55-60%, grade 2 diastolic dysfunction Gram-negative dulce bacteremia Normal WBC, no fevers 1/2 blood culture positive for Gram-negative rods UA unremarkable, chest x-ray showed increased pulmonary vascularity. no consolidation No abdominal pain, likely from skin left leg wound/cellulitis Follow final culture report, no abdominal pain, no diarrhea will hold CT abdomen and pelvis Acute intermittent asthma exacerbation Resolved, denies shortness of breath or wheeze Titrate supplemental O2 >92, wean as tolerated on Duonebs q.4 hours will transition to q.i.d. Does not appear to be on home inhalers Monitor respiratory status MARK on CKD 3 Creatinine trending down from 1.83 to 1.42 , baseline around 1.28 Likely cardiorenal in the setting of above Seen by certified prosthetist/orthotist case discussed with Dr. Verma he recommend to continue current treatment, urinary sodium 104 Follow kidney function Hyperkalemia Potassium 5.9 at time presentation, remains elevated at 5.6 Likely in the setting of worsening kidney function Continue Lokelma 5 mg and Follow potassium, likely will improve with diuresis Chronic lower left wound Does not appear grossly infected, seen by wound nurse follow wound care as recommended, follow blood cultures Paroxysmal AFib Continue amiodarone, Eliquis and metoprolol HTN continue amlodipine and metoprolol and follow BP CAD/HLD Continue aspirin, statin Insulin-dependent type 2 diabetes blood sugars around 200, continue Sliding- scale insulin, Lantus and Diabetic diet Peripheral neuropathy Continue gabapentin Morbid obesity recommend low-calorie diet. Full Code DVT Prophylaxis: On Eliquis In my clinical judgment patient requires continued inpatient hospitalization for?acute respiratory distress and MARK in the setting of acute HFpEF exacerbation and IV antibiotics for bacteremia.. Quality Stroke Does the patient have a stroke diagnosis?: No VTE Prior VTE?: No VTE Risk Level:: Medical - moderate - high VTE Device Contraindication: Treatment Not Indicated VTE Drug Contraindication: N/A - Med Ordered
--- NOTE | 2024-06-14 16:41 | P.CDIM_ITS ---
PROVIDER RESPONSE TEXT: To clarify, the appropriate diagnosis supported by the clinical indicators: Morbid obesity: 3 QUERY TEXT: PHYSICIAN'S DOCUMENTATION REQUEST Date of Query: 06/14/2024 09:12 AM EST Patient Name: Mary Lou Godwin Admit Date: 06/11/2024 Dear Everett Bran MD, A review of the medical record indicates additional documentation may be needed. Please review below and update the documentation accordingly. Clinical Indicators: Nursing notes for height and weight: Extreme obesity class III with BMI 51.7 4ft 11in 116.1kg If possible, please provide an associated diagnosis related to the abnormal BMI, such as: Obesity Due to excess calories Morbid obesity class 1, 2, 3 Severe or Morbid Obesity With alveolar hypoventilation Severe or Morbid Obesity Without alveolar hypoventilation Other (explain) Clinically unable to determine (explain) Thank you, Elena Dalal, CCS, CDIS Use of terms such as suspected, likely, concern for, or probable (associated with a specific diagnosi s that is being evaluated, monitored, or treated as if it exists) are acceptable and can be coded in the inpatient se tting, when documented at the time of discharge. Please use your independent medical judgment in providing your response. THIS QUERY IS PART OF THE PERMANENT MEDICAL RECORD
[2024-06-14] MEDS: Atorvastatin Calcium 80 MG TABLET PO (20:28)
[2024-06-14] MEDS: Aspirin Enteric Coated 81 MG TABLET.DR PO (20:28)
[2024-06-14] MEDS: traZODone HCL 50 MG TABLET 150 MG PO (20:28)
[2024-06-14 20:43] LABS: Glucose, Whole Blood 239 mg/dL (60-115)
[2024-06-14] MEDS: Nystatin Powder 15 GM BOTTLE 1 APPL TOPICAL (23:52)
[2024-06-15] VITALS (10 sets, daily range): BP systolic 116–148; BP diastolic 53–64; PULSE 53–62; RESP 16–20; TEMP 36.1–36.9; O2SAT 89–100
[2024-06-15] MEDS: LORazepam 0.5 MG TABLET 0.25 MG PO (03:51)
[2024-06-15] MEDS: hydrOXYzine HCL 25 MG TABLET PO (03:52)
--- NOTE | 2024-06-15 04:02 | PC.NURSE ---
Patients callie area is inflamed, itching and burning especially after callie care with bed/bath wipes. Hydroxyzine with minimal effect. Patient reports taking benedryl and applying vaseline at home. RN recommended patient get up to use the commode or bathroom, stop using purewick which is causing further irritation. Nysatin applied around area, ice pack placed for soothing and decreasing inflammation. Patient also suffers from severe anxiety crying out for the past 3 nights for prolonged periods. RN paged who ordered small dose ativan which was held initally when ordered because patient was sleeping but woke at 0200 and remains awake at 0400. Ativan and hydroxyzine administered. Will continue to monitor.
[2024-06-15] MEDS: Levothyroxine Sodium 50 MCG TABLET PO (05:38)
[2024-06-15] MEDS: Omeprazole 40 MG CAPSULE.DR PO (05:38)
[2024-06-15 07:22] LABS: Glucose, Whole Blood 232 mg/dL (60-115)
[2024-06-15 07:41] LABS: Hematocrit 28.3 % (37.0-47.0); Hemoglobin 8.5 g/dl (12.0-16.0); Mean Corpuscular Hemoglobin 24.2 pg (27.0-33.0); Mean Corpuscular Volume 80.6 fL (80.0-98.0); Mean Platelet Volume 10.8 fL (9.4-12.3); Platelet Count 270 X10*3/uL (160-400); Red Blood Count 3.51 X10*6/uL (4.20-5.50); Red Cell Distribution Width 15.5 % (11.0-16.0); White Blood Count 5.3 X10*3/uL (4.8-10.8)
[2024-06-15] MEDS: Albuterol/Iprat 2.5/0.5MG 3 ML AMPUL.NEB INHALE ×3 (07:45→19:08)
[2024-06-15 07:55] LABS: Anion Gap 11 (12-20); Blood Urea Nitrogen 38 mg/dL (9-16); Calcium 7.9 mg/dL (8.4-10.2); Carbon Dioxide 29 mmol/L (22-29); Chloride 102 mmol/L (96-108); Creatinine Clr Calc Pharmacy 47.8; Estimated Glomerular Filt Rate 45; Glucose Random 256 mg/dL (60-115); Potassium 4.8 mmol/L (3.3-5.1); Sodium 137 mmol/L (135-145)
[2024-06-15] MEDS: DULoxetine HCl 20 MG CAPSULE.DR PO (09:14)
[2024-06-15] MEDS: Furosemide 40 MG/4 ML VIAL IVPUSH (09:15)
[2024-06-15] MEDS: amLODIPine Besylate 5 MG TABLET PO (09:15)
[2024-06-15] MEDS: PARoxetine HCL 40 MG TABLET PO (09:15)
[2024-06-15] MEDS: Sodium Zirconium Cyclosilicate 5 GM POWD.PACK PO (09:15)
[2024-06-15] MEDS: Calcium Oyster Shell Elemental 500 MG TABLET PO ×2 (09:15→20:41)
[2024-06-15] MEDS: Apixaban 5 MG TABLET PO ×2 (09:15→20:40)
[2024-06-15] MEDS: Gabapentin 100 MG CAPSULE PO ×3 (09:15→20:41)
[2024-06-15] MEDS: Insulin Lispro 100 UNIT/ML 3 ML VIAL SUBCUT ×4 (09:15→20:52)
[2024-06-15] MEDS: Amiodarone HCL 200 MG TABLET PO (09:15)
[2024-06-15] MEDS: Metoprolol Succinate ER 50 MG TAB.ER.24H PO (09:15)
[2024-06-15] MEDS: 0.9 % Sodium Chloride Flush 3 ML SYRINGE IVFLUSH ×2 (09:16→15:47)
[2024-06-15] MEDS: Nystatin Powder 15 GM BOTTLE 1 APPL TOPICAL ×2 (09:18→20:54)
--- NOTE | 2024-06-15 10:19 | P.PNNP_ITS ---
Subjective Subjective Date of Service: 06/15/24 Interval history: 73 y/o female with a medical history of afib, CAD, HFpEF, HTN, CKD3, DMII, asthma, hypothyroidism, wheelchair bound. Presented to ED on 06/11 with shortness of breath since night prior, BLE edema, home lasix reportedly held since 03/20 due to worsening renal function. patient is being treated for asthma and HF exacerabtion. Nephrology consulted for MARK on CKD3 Creatinine baseline 1.28, on 06/11 1.87, 06/12 is 1.83, 06/13 was 1.60, 06/14 1.42, 06/15 is 1.18 Potassium has been elevated, 06/11 5.9, 06/12 is 5.4, 06/13 5.8, 06/14 5.6- receiving lokelma PRN; normalized today at 4.8 UOP 3400mL over previous 24 hours Ur Sodium 104 on 06/12 has been receiving IVP lasix 40mg daily she denies chest pain, dizziness reports today breathing is comfortable states she is urinating comfortably/regularly She denies other concerns/complaints Physical Exam 2 Vital Signs: Vital Signs: Last Vital Signs Temp 97.0 F 06/15/24 07:44 Pulse 62 06/15/24 07:47 Resp 16 06/15/24 07:47 BP 148/64 H 06/15/24 07:44 Pulse Ox 98 06/15/24 07:44 O2 Del Method Nasal Cannula 06/15/24 07:44 O2 Flow Rate 2 06/15/24 07:44 BMI result Body Mass Index 51.7 Const: General: no acute distress, alert and awake Resp: Effort & Inspection: normal respiratory effort and able to speak in complete sentences Auscultation: clear to auscultation bilaterally Cardio: Jugular venous distension: no JVD Rate: regular rate Heart sounds: S1 normal heart sound present and S2 normal heart sound present GI: Palpation (GI): Soft to palpation and Tenderness to palpation present (GI) : General: Yes no CVA tenderness Back/Spine/Pelvis: Back: no CVA tenderness Skin: Lesions: lesion noted (LLE chronic ulcers, scabbed ) Rashes: no rashes Extrem: General: No edema (trace LE edema on exam) Objective Data Labs 06/15/24 07:25 06/15/24 07:25 Labs: Laboratory Results - last 24 hr 06/14/24 06/14/24 06/14/24 10:57 16:08 20:34 WBC RBC Hgb Hct MCV MCH MCHC RDW Plt Count MPV Absolute Nucleated RBC Nucleated RBC % (auto) Sodium Potassium Chloride Carbon Dioxide Anion Gap BUN Creatinine Estim Creat Clear Calc Estimated GFR POC Glucose 283 H 212 H 239 H Random Glucose Calcium 06/15/24 06/15/24 07:18 07:25 WBC 5.3 RBC 3.51 L Hgb 8.5 L Hct 28.3 L MCV 80.6 MCH 24.2 L MCHC 30.0 L RDW 15.5 Plt Count 270 MPV 10.8 Absolute Nucleated RBC 0.000 Nucleated RBC % (auto) 0.0 Sodium 137 Potassium 4.8 Chloride 102 Carbon Dioxide 29 Anion Gap 11 L BUN 38 H Creatinine 1.18 Estim Creat Clear Calc 47.8 Estimated GFR 45 POC Glucose 232 H Random Glucose 256 H Calcium 7.9 L Microbiology Microbiology Results: Microbiology 06/11/24 05:41 Blood - Venous Blood Culture - Preliminary Prelim: GNR Gram Stain only 06/13/24 12:05 Urine clean catch - Clean Catch Midstream Urine Culture - Final 06/11/24 06:13 Blood - Venous Blood Culture - Preliminary No growth after 48 hours. Procedures Date of Service Date of Service: 06/15/24 Assessment & Plan Assessment and plan (1) CKD stage 3 due to type 2 diabetes mellitus: Status: Acute (2) MARK (acute kidney injury): Status: Acute (3) CHF exacerbation: Status: Acute (4) Acute hyperkalemia: Status: Acute Plan MARK on CKD3 likely secondary to CHF exacerbation pt having adequate response to diuretics, creatinine is continuing to improve- recommend continuing diuresis- when medical team feels appropriate, recommend switching from IVP lasix to torsemide 40mg daily hyperkalemia likely secondary to heart failure, normalized today. Continue low potassium diet. continue to monitor daily electrolytes and renal function continue supportive care, avoid nephrotoxic substances will continue to follow Discussed with Dr Luna Time Spent With Patient Time: Total time managing care of this patient today ____ minutes. Progress Note: Quality Stroke Does the patient have a stroke diagnosis?: No
[2024-06-15] MEDS: cefTRIAXone sodium 2 GM VIAL IVPUSH (10:31)
[2024-06-15 11:09] LABS: Glucose, Whole Blood 248 mg/dL (60-115)
--- NOTE | 2024-06-15 15:02 | HO.PM.IMPN ---
Subjective Subjective Date of Service: 06/15/24 Interval History: This history was taken in Turkmen from the patient. Breathing improved SCr improved Review of Systems Review of Systems: Yes all other systems are reviewed and are negative Physical Exam Vital Signs: Vital Signs: Last Vital Signs Temp 98.5 F 06/15/24 11:25 Pulse 55 06/15/24 11:25 Resp 18 06/15/24 11:25 BP 135/56 L 06/15/24 11:25 Pulse Ox 96 06/15/24 11:25 O2 Del Method Room Air 06/15/24 11:25 O2 Flow Rate 2 06/15/24 07:44 BMI result Body Mass Index 51.7 Gen: in no acute distress HEENT: sclera anicteric, moist mucus membranes Neck: supple Lungs: clear to auscultation bilaterally Heart: regular rate and rhythm, no murmurs Abd: soft, non-tender, non-distended, obese Ext: no edema Skin: warm/well-perfused, venous vs diabetic wound LLE Neuro: alert and oriented x3, no focal findings Psych: appropriate affect Objective Data Active Medications Acetaminophen (Acetaminophen 325 Mg Tablet) 650 mg PO Q6H PRN PRN Reason: Pain, Mild (Pain Scale 1-3), fever or headache Last Admin: 06/14/24 20:28 Dose: 650 mg Documented By: SHARONA Albuterol/Ipratropium (Albuterol/Iprat 2.5/0.5mg 3 Ml Ampul.Neb) 3 ml INHALE RQ4H WHILE AWAKE PRN PRN Reason: Shortness of Breath/Wheezing Last Admin: 06/13/24 03:31 Dose: 3 ml Documented By: LUNA Albuterol/Ipratropium (Albuterol/Iprat 2.5/0.5mg 3 Ml Ampul.Neb) 3 ml INHALE RQ6H WHILE AWAKE [facility] Last Admin: 06/15/24 07:45 Dose: 3 ml Documented By: RADHA Amiodarone HCl (Amiodarone Hcl 200 Mg Tablet) 200 mg PO DAILY [facility] Last Admin: 06/15/24 09:15 Dose: 200 mg Documented By: YARED Amlodipine Besylate (Amlodipine Besylate 5 Mg Tablet) 5 mg PO DAILY [facility]; Protocol Last Admin: 06/15/24 09:15 Dose: 5 mg Documented By: YARED Apixaban (Apixaban 5 Mg Tablet) 5 mg PO BID [facility] Last Admin: 06/15/24 09:15 Dose: 5 mg Documented By: YARED Aspirin (Aspirin Enteric Coated 81 Mg Tablet.) 81 mg PO BEDTIME [facility] Last Admin: 06/14/24 20:28 Dose: 81 mg Documented By: SHARONA Atorvastatin Calcium (Atorvastatin Calcium 80 Mg Tablet) 80 mg PO BEDTIME [facility] Last Admin: 06/14/24 20:28 Dose: 80 mg Documented By: SHARONA Benzonatate (Benzonatate 100 Mg Capsule) 100 mg PO TID PRN PRN Reason: Cough Calcium Carbonate (Calcium Carbonate 750 Mg Tab.Chew) 750 mg PO Q4H PRN PRN Reason: Heartburn Calcium Carbonate (Calcium Oyster Shell Elemental 500 Mg Tablet) 500 mg PO BID [facility] Last Admin: 06/15/24 09:15 Dose: 500 mg Documented By: YARED Ceftriaxone Sodium (Ceftriaxone Sodium 2 Gm Vial) 2 gm IVPUSH Q24H [facility] Last Admin: 06/15/24 10:31 Dose: 2 gm Documented By: YARED Duloxetine HCl (Duloxetine Hcl 20 Mg Capsule.) 20 mg PO DAILY [facility] Last Admin: 06/15/24 09:14 Dose: 20 mg Documented By: YARED Gabapentin (Gabapentin 100 Mg Capsule) 100 mg PO TID [facility] Last Admin: 06/15/24 09:15 Dose: 100 mg Documented By: YARED Glucose (Glucose Gel 15 Gm Gel..Gram.) 15 gm PO Q15M PRN; Protocol PRN Reason: per Hypoglycemia Standing Ord. Hydroxyzine HCl (Hydroxyzine Hcl 25 Mg Tablet) 25 mg PO Q8H PRN PRN Reason: Itching Last Admin: 06/15/24 03:52 Dose: 25 mg Documented By: SHARONA Dextrose (D10) 250 mls @ 750 mls/hr IV Q15M PRN; Protocol PRN Reason: per Hypoglycemia Standing Ord. Insulin Human Lispro (Insulin Lispro 100 Unit/Ml 3 Ml Vial) 0 unit SUBCUT QIDACHS [facility]; Protocol Last Admin: 06/15/24 11:58 Dose: 4 unit Documented By: YARED Levothyroxine Sodium (Levothyroxine Sodium 50 Mcg Tablet) 50 mcg PO DAILY@0600 [facility] Last Admin: 06/15/24 05:38 Dose: 50 mcg Documented By: SHARONA Magnesium Hydroxide (Milk Of Magnesia 30 Ml Oral.Susp) 30 ml PO DAILY PRN PRN Reason: Constipation Melatonin (Melatonin 3 Mg Tablet) 6 mg PO BEDTIME PRN PRN Reason: Insomnia Metoprolol Succinate (Metoprolol Succinate Er 50 Mg Tab.Er.24h) 50 mg PO DAILY [facility]; Protocol Last Admin: 06/15/24 09:15 Dose: 50 mg Documented By: YARED Nystatin (Nystatin Powder 15 Gm Bottle) 1 appl TOPICAL BID [facility]; Protocol Last Admin: 06/15/24 09:18 Dose: 1 appl Documented By: YARED Omeprazole (Omeprazole 40 Mg Capsule.Dr) 40 mg PO DAILY@0630 [facility] Last Admin: 06/15/24 05:38 Dose: 40 mg Documented By: SHARONA Ondansetron HCl (Ondansetron Hcl 4 Mg/2 Ml Vial) 4 mg IVPUSH Q8H PRN PRN Reason: Nausea and Vomiting Oxycodone HCl (Oxycodone Hcl Immed Release 5 Mg Tablet) 1 mg PO Q6H PRN PRN Reason: Pain, Moderate(Pain Scale 4-6) Paroxetine HCl (Paroxetine Hcl 40 Mg Tablet) 40 mg PO DAILY [facility] Last Admin: 06/15/24 09:15 Dose: 40 mg Documented By: YARED Sodium Chloride (0.9 % Sodium Chloride Flush 3 Ml Syringe) [facility] Last Admin: 06/15/24 09:16 Dose: 3 ml Documented By: YARED Sodium Zirconium Cyclosilicate (Sodium Zirconium Cyclosilicate 5 Gm Powd.Pack) 5 gm PO DAILY [facility] Last Admin: 06/15/24 09:15 Dose: 5 gm Documented By: YARED Torsemide (Torsemide 20 Mg Tablet) 40 mg PO DAILY [facility]; Protocol Trazodone HCl (Trazodone Hcl 50 Mg Tablet) 150 mg PO BEDTIME [facility] Last Admin: 06/14/24 20:28 Dose: 150 mg Documented By: SHARONA Labs 06/15/24 07:25 06/15/24 07:25 Labs: Laboratory Results - last 24 hr 06/14/24 06/14/24 06/15/24 16:08 20:34 07:18 MCV MCH MCHC RDW Plt Count MPV Absolute Nucleated RBC Nucleated RBC % (auto) Anion Gap Estim Creat Clear Calc Estimated GFR POC Glucose 212 H 239 H 232 H Random Glucose Calcium 06/15/24 06/15/24 07:25 10:56 MCV 80.6 MCH 24.2 L MCHC 30.0 L RDW 15.5 Plt Count 270 MPV 10.8 Absolute Nucleated RBC 0.000 Nucleated RBC % (auto) 0.0 Anion Gap 11 L Estim Creat Clear Calc 47.8 Estimated GFR 45 POC Glucose 248 H Random Glucose 256 H Calcium 7.9 L Microbiology Microbiology Results: Microbiology 06/11/24 05:41 Blood Culture - Preliminary Blood - Venous Prelim: GNR Gram Stain only 06/13/24 12:05 Urine Culture - Final Urine clean catch - Clean Catch Midstream Assessment and Plan (1) MARK (acute kidney injury): Status: Acute (2) CHF exacerbation: Status: Acute Plan d5 73yo F with pAF on apixaban s/p cardioversion Jun 2023, HFpEF, HTN, CKD3, DM2, asthma, hypothyroidism presenting with dyspnea and admitted for CHF exacerbation acute/chronic HFpEF exacerbation - negative 5060 mL this admission; change IV furosemide to PO torsemide - TTE 06/12/24: 1. Technically limited study due to body habitus as well as patient terminated they exam 2. Normal LV ejection fraction 55-60% with mild LVH with grade 2 diastolic dysfunction GNR bacteremia - 1 of 2 BCx from 06/11 positive for GNRs, awaiting speciation + susceptibilities, on ceftriaxone 06/13- MARK/CKD3 - improved to baseline, likely due to cardiorenal syndrome hyperK - resolved; continue Lokelpr mild intermittent asthma - prn nebs chronic LLE wound, diabetic vs. vascular - Wound Care consulted: Left Lower Legs - Elevate heels off of bed surface - Cleanse with NS, pat dry. Apply Triad to periwound, apply durfiber AG to open wound bed, cover with dry gauze, ABD pad and Elastic netting. : pAF - continue amiodarone, metoprolol succinate, apixaban HTN - continue metoprolol succinate, amlodipine CAD HLD - continue ASA, atorvastatin DM2 - basal-bolus insulin hypothyroidism - continue LT4 mood disorder - paroxetine, trazodone peripheral neuropathy - continue gabapentin, duloxetine morbid obesity - diet/exercise counseling VTE ppx - apixaban dispo - STR vs home with VNA In my clinical judgment, the patient requires continued inpatient hospitalization for the following reasons: IV ABX Total time managing care of this patient today: 40 minutes. Quality Stroke Does the patient have a stroke diagnosis?: No VTE Prior VTE?: No VTE Risk Level:: Medical - moderate - high VTE Device Contraindication: Treatment Not Indicated VTE Drug Contraindication: N/A - Med Ordered
[2024-06-15 16:03] LABS: Glucose, Whole Blood 241 mg/dL (60-115)
[2024-06-15] MEDS: oxyCODONE HCl Immed Release 5 MG TABLET PO (16:46)
[2024-06-15] MEDS: Atorvastatin Calcium 80 MG TABLET PO (20:41)
[2024-06-15] MEDS: Aspirin Enteric Coated 81 MG TABLET.DR PO (20:41)
[2024-06-15] MEDS: traZODone HCL 50 MG TABLET 150 MG PO (20:41)
[2024-06-15 20:44] LABS: Glucose, Whole Blood 248 mg/dL (60-115)
[2024-06-16] VITALS (8 sets, daily range): BP systolic 106–155; BP diastolic 69–112; PULSE 50–87; RESP 15–20; TEMP 36.2–36.4; O2SAT 95–100
[2024-06-16] MEDS: 0.9 % Sodium Chloride Flush 3 ML SYRINGE IVFLUSH ×4 (00:06→21:44)
[2024-06-16] MEDS: Omeprazole 40 MG CAPSULE.DR PO (05:41)
[2024-06-16] MEDS: Levothyroxine Sodium 50 MCG TABLET PO (05:41)
[2024-06-16] MEDS: hydrOXYzine HCL 25 MG TABLET PO ×2 (06:26→18:45)
[2024-06-16 06:57] LABS: Glucose, Whole Blood 244 mg/dL (60-115)
[2024-06-16] MEDS: Sodium Zirconium Cyclosilicate 5 GM POWD.PACK PO (07:49)
[2024-06-16] MEDS: Calcium Oyster Shell Elemental 500 MG TABLET PO ×2 (07:49→21:44)
[2024-06-16] MEDS: amLODIPine Besylate 5 MG TABLET PO (07:49)
[2024-06-16] MEDS: Torsemide 20 MG TABLET 40 MG PO (07:49)
[2024-06-16] MEDS: Insulin Lispro 100 UNIT/ML 3 ML VIAL SUBCUT ×4 (07:49→21:56)
[2024-06-16] MEDS: DULoxetine HCl 20 MG CAPSULE.DR PO (07:49)
[2024-06-16] MEDS: Gabapentin 100 MG CAPSULE PO ×3 (07:49→21:44)
[2024-06-16 07:50] LABS: Anion Gap 14 (12-20); Blood Urea Nitrogen 37 mg/dL (9-16); Calcium 8.4 mg/dL (8.4-10.2); Carbon Dioxide 32 mmol/L (22-29); Chloride 99 mmol/L (96-108); Creatinine Clr Calc Pharmacy 38.8; Estimated Glomerular Filt Rate 35; Glucose Random 254 mg/dL (60-115); Magnesium 2.2 mg/dL (1.6-2.6); Potassium 5.1 mmol/L (3.3-5.1); Sodium 140 mmol/L (135-145)
[2024-06-16] MEDS: Apixaban 5 MG TABLET PO ×2 (07:50→21:44)
[2024-06-16] MEDS: PARoxetine HCL 40 MG TABLET PO (07:50)
[2024-06-16] MEDS: Amiodarone HCL 200 MG TABLET PO (07:50)
[2024-06-16] MEDS: Metoprolol Succinate ER 50 MG TAB.ER.24H PO (07:55)
[2024-06-16 07:56] LABS: B Type Natriuretic Peptide 98 pg/mL (<100)
[2024-06-16] MEDS: Nystatin Powder 15 GM BOTTLE 1 APPL TOPICAL ×2 (07:58→21:55)
[2024-06-16] MEDS: Albuterol/Iprat 2.5/0.5MG 3 ML AMPUL.NEB INHALE ×3 (08:10→18:52)
--- NOTE | 2024-06-16 09:16 | P.PNNP_ITS ---
Subjective Subjective Date of Service: 06/16/24 Interval history: 73 y/o female with a medical history of afib, CAD, HFpEF, HTN, CKD3, DMII, asthma, hypothyroidism, wheelchair bound. Presented to ED on 06/11 with shortness of breath since night prior, BLE edema, home lasix reportedly held since 03/20 due to worsening renal function. patient is being treated for asthma and HF exacerabtion. Nephrology consulted for MARK on CKD3 Creatinine baseline 1.28, on 06/11 1.87, 06/12 is 1.83, 06/13 was 1.60, 06/14 1.42, 06/15 was 1.18; increased to 1.45 06/16 Potassium had been elevated received lokelma PRN; normalized 06/15 at 4.8; 5.1 06/16 UOP 3400mL over 06/14-06/15; no UOP recorded for 06/15-06/16 Ur Sodium 104 on 06/12 has been switched to torsemide 40mg daily PO from IVP lasix 40mg daily she denies chest pain, dizziness reports today breathing is comfortable states she is urinating comfortably/regularly She denies other concerns/complaints Physical Exam 2 Vital Signs: Vital Signs: Last Vital Signs Temp 97.3 F 06/16/24 07:11 Pulse 57 06/16/24 08:10 Resp 18 06/16/24 08:10 BP 106/79 06/16/24 07:11 Pulse Ox 97 06/16/24 07:11 O2 Del Method Nasal Cannula 06/16/24 07:11 O2 Flow Rate 2 06/16/24 07:11 BMI result Body Mass Index 51.7 Const: General: no acute distress, alert and awake Resp: Effort & Inspection: normal respiratory effort and able to speak in complete sentences Auscultation: clear to auscultation bilaterally Cardio: Jugular venous distension: no JVD Rate: regular rate Heart sounds: S1 normal heart sound present and S2 normal heart sound present GI: Palpation (GI): Soft to palpation and Tenderness to palpation present (GI) : General: Yes no CVA tenderness Back/Spine/Pelvis: Back: no CVA tenderness Skin: Lesions: lesion noted (LLE chronic ulcers, scabbed ) Rashes: no rashes Extrem: General: No edema (trace LE edema on exam) Objective Data Labs 06/15/24 07:25 06/16/24 07:07 Labs: Laboratory Results - last 24 hr 06/15/24 06/15/24 06/15/24 10:56 15:57 20:32 Sodium Potassium Chloride Carbon Dioxide Anion Gap BUN Creatinine Estim Creat Clear Calc Estimated GFR POC Glucose 248 H 241 H 248 H Random Glucose Calcium Magnesium B-Natriuretic Peptide 06/16/24 06/16/24 06/16/24 06:53 07:06 07:07 Sodium 140 Potassium 5.1 Chloride 99 Carbon Dioxide 32 H Anion Gap 14 BUN 37 H Creatinine 1.45 H Estim Creat Clear Calc 38.8 Estimated GFR 35 POC Glucose 244 H Random Glucose 254 H Calcium 8.4 D Magnesium 2.2 B-Natriuretic Peptide 98 Microbiology Microbiology Results: Microbiology 06/11/24 05:41 Blood - Venous Blood Culture - Final Fusobacterium species 06/13/24 12:05 Urine clean catch - Clean Catch Midstream Urine Culture - Final 06/11/24 06:13 Blood - Venous Blood Culture - Preliminary No growth after 48 hours. Procedures Date of Service Date of Service: 06/16/24 Assessment & Plan Assessment and plan (1) CKD stage 3 due to type 2 diabetes mellitus: Status: Acute (2) MARK (acute kidney injury): Status: Acute (3) CHF exacerbation: Status: Acute (4) Acute hyperkalemia: Status: Acute Plan MARK on CKD3 likely secondary to CHF exacerbation pt having adequate response to diuretics, creatinine improved though uptrend today, likely secondary to overdiuresis recommend continuing diuresis- agree continue oral 40mg daily torsemide as replacement for IVP furosemide hyperkalemia likely secondary to heart failure, resolved. Continue low potassium diet. continue to monitor daily electrolytes and renal function continue supportive care, avoid nephrotoxic substances will continue to follow Discussed with Dr Luna Time Spent With Patient Time: Total time managing care of this patient today ____ minutes. Progress Note: Quality Stroke Does the patient have a stroke diagnosis?: No
[2024-06-16 10:54] LABS: Glucose, Whole Blood 253 mg/dL (60-115)
[2024-06-16] MEDS: cefTRIAXone sodium 2 GM VIAL IVPUSH (11:04)
--- NOTE | 2024-06-16 14:17 | HO.PM.IMPN ---
Subjective Subjective Date of Service: 06/16/24 Interval History: This history was taken in Sinhala from the patient. Dyspnea resolved No chest pain This history was taken in Sinhala from the patient. Review of Systems Review of Systems: Yes all other systems are reviewed and are negative Physical Exam Vital Signs: Vital Signs: Last Vital Signs Temp 97.5 F 06/16/24 11:07 Pulse 53 06/16/24 11:07 Resp 20 06/16/24 11:07 BP 146/69 H 06/16/24 11:07 Pulse Ox 100 06/16/24 11:07 O2 Del Method Nasal Cannula 06/16/24 11:07 O2 Flow Rate 2 06/16/24 11:07 BMI result Body Mass Index 51.7 Gen: in no acute distress HEENT: sclera anicteric, moist mucus membranes Neck: supple Lungs: clear to auscultation bilaterally Heart: regular rate and rhythm, no murmurs Abd: soft, non-tender, non-distended, obese Ext: no edema Skin: warm/well-perfused, venous vs diabetic wound LLE Neuro: alert and oriented x3, no focal findings Psych: appropriate affect Objective Data Active Medications Acetaminophen (Acetaminophen 325 Mg Tablet) 650 mg PO Q6H PRN PRN Reason: Pain, Mild (Pain Scale 1-3), fever or headache Last Admin: 06/14/24 20:28 Dose: 650 mg Documented By: SHARONA Albuterol/Ipratropium (Albuterol/Iprat 2.5/0.5mg 3 Ml Ampul.Neb) 3 ml INHALE RQ4H WHILE AWAKE PRN PRN Reason: Shortness of Breath/Wheezing Last Admin: 06/13/24 03:31 Dose: 3 ml Documented By: LUNA Albuterol/Ipratropium (Albuterol/Iprat 2.5/0.5mg 3 Ml Ampul.Neb) 3 ml INHALE RQ6H WHILE AWAKE [facility] Last Admin: 06/16/24 08:10 Dose: 3 ml Documented By: RADHA Amiodarone HCl (Amiodarone Hcl 200 Mg Tablet) 200 mg PO DAILY [facility] Last Admin: 06/16/24 07:50 Dose: 200 mg Documented By: ISAAC Amlodipine Besylate (Amlodipine Besylate 5 Mg Tablet) 5 mg PO DAILY [facility]; Protocol Last Admin: 06/16/24 07:49 Dose: 5 mg Documented By: ISAAC Apixaban (Apixaban 5 Mg Tablet) 5 mg PO BID [facility] Last Admin: 06/16/24 07:50 Dose: 5 mg Documented By: ISAAC Aspirin (Aspirin Enteric Coated 81 Mg Tablet.) 81 mg PO BEDTIME [facility] Last Admin: 06/15/24 20:41 Dose: 81 mg Documented By: BRANNON Atorvastatin Calcium (Atorvastatin Calcium 80 Mg Tablet) 80 mg PO BEDTIME [facility] Last Admin: 06/15/24 20:41 Dose: 80 mg Documented By: BRANNON Benzonatate (Benzonatate 100 Mg Capsule) 100 mg PO TID PRN PRN Reason: Cough Calcium Carbonate (Calcium Carbonate 750 Mg Tab.Chew) 750 mg PO Q4H PRN PRN Reason: Heartburn Calcium Carbonate (Calcium Oyster Shell Elemental 500 Mg Tablet) 500 mg PO BID [facility] Last Admin: 06/16/24 07:49 Dose: 500 mg Documented By: ISAAC Ceftriaxone Sodium (Ceftriaxone Sodium 2 Gm Vial) 2 gm IVPUSH Q24H [facility] Last Admin: 06/16/24 11:04 Dose: 2 gm Documented By: ISAAC Duloxetine HCl (Duloxetine Hcl 20 Mg Capsule.) 20 mg PO DAILY [facility] Last Admin: 06/16/24 07:49 Dose: 20 mg Documented By: ISAAC Gabapentin (Gabapentin 100 Mg Capsule) 100 mg PO TID [facility] Last Admin: 06/16/24 07:49 Dose: 100 mg Documented By: ISAAC Glucose (Glucose Gel 15 Gm Gel..Gram.) 15 gm PO Q15M PRN; Protocol PRN Reason: per Hypoglycemia Standing Ord. Hydroxyzine HCl (Hydroxyzine Hcl 25 Mg Tablet) 25 mg PO Q8H PRN PRN Reason: Itching Last Admin: 06/16/24 06:26 Dose: 25 mg Documented By: BRANNON Dextrose (D10) 250 mls @ 750 mls/hr IV Q15M PRN; Protocol PRN Reason: per Hypoglycemia Standing Ord. Insulin Human Lispro (Insulin Lispro 100 Unit/Ml 3 Ml Vial) 0 unit SUBCUT QIDACHS [facility]; Protocol Last Admin: 06/16/24 11:04 Dose: 6 unit Documented By: ISAAC Levothyroxine Sodium (Levothyroxine Sodium 50 Mcg Tablet) 50 mcg PO DAILY@0600 [facility] Last Admin: 06/16/24 05:41 Dose: 50 mcg Documented By: BRANNON Magnesium Hydroxide (Milk Of Magnesia 30 Ml Oral.Susp) 30 ml PO DAILY PRN PRN Reason: Constipation Melatonin (Melatonin 3 Mg Tablet) 6 mg PO BEDTIME PRN PRN Reason: Insomnia Metoprolol Succinate (Metoprolol Succinate Er 50 Mg Tab.Er.24h) 50 mg PO DAILY [facility]; Protocol Last Admin: 06/16/24 07:55 Dose: 50 mg Documented By: ISAAC Comments: Give per Nystatin (Nystatin Powder 15 Gm Bottle) 1 appl TOPICAL BID [facility]; Protocol Last Admin: 06/16/24 07:58 Dose: 1 appl Documented By: ISAAC Omeprazole (Omeprazole 40 Mg Capsule.Dr) 40 mg PO DAILY@0630 [facility] Last Admin: 06/16/24 05:41 Dose: 40 mg Documented By: BRANNON Ondansetron HCl (Ondansetron Hcl 4 Mg/2 Ml Vial) 4 mg IVPUSH Q8H PRN PRN Reason: Nausea and Vomiting Oxycodone HCl (Oxycodone Hcl Immed Release 5 Mg Tablet) 5 mg PO Q6H PRN PRN Reason: Pain, Moderate(Pain Scale 4-6) Last Admin: 06/15/24 16:46 Dose: 5 mg Documented By: ISAAC Paroxetine HCl (Paroxetine Hcl 40 Mg Tablet) 40 mg PO DAILY [facility] Last Admin: 06/16/24 07:50 Dose: 40 mg Documented By: ISAAC Sodium Chloride (0.9 % Sodium Chloride Flush 3 Ml Syringe) 3 ml IVFLUSH QSHIFT [facility] Last Admin: 06/16/24 07:50 Dose: 3 ml Documented By: ISAAC Sodium Zirconium Cyclosilicate (Sodium Zirconium Cyclosilicate 5 Gm Powd.Pack) 5 gm PO DAILY [facility] Last Admin: 06/16/24 07:49 Dose: 5 gm Documented By: ISAAC Torsemide (Torsemide 20 Mg Tablet) 40 mg PO DAILY [facility]; Protocol Last Admin: 06/16/24 07:49 Dose: 40 mg Documented By: ISAAC Trazodone HCl (Trazodone Hcl 50 Mg Tablet) 150 mg PO BEDTIME [facility] Last Admin: 06/15/24 20:41 Dose: 150 mg Documented By: BRANNON Labs 06/15/24 07:25 06/16/24 07:07 Labs: Laboratory Results - last 24 hr 06/15/24 06/15/24 06/16/24 15:57 20:32 06:53 Anion Gap Estim Creat Clear Calc Estimated GFR POC Glucose 241 H 248 H 244 H Random Glucose Calcium Magnesium B-Natriuretic Peptide 06/16/24 06/16/24 06/16/24 07:06 07:07 10:49 Anion Gap 14 Estim Creat Clear Calc 38.8 Estimated GFR 35 POC Glucose 253 H Random Glucose 254 H Calcium 8.4 D Magnesium 2.2 B-Natriuretic Peptide 98 Microbiology Microbiology Results: Microbiology 06/11/24 06:13 Blood Culture - Final Blood - Venous No growth after 5 days. 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 Technically limited study due to body habitus as well as patient terminated they exam 2. 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 Has been on ceftriaxone since 06/13. Repeat BCx today 06/16. ID consult requested. MARK/CKD3 - Cr had improved to baseline but is worse today. Initially probably had cardiorenal syndrome and then perhaps over-diuresed. hyperK - resolved; continue Lokelma mild intermittent asthma - prn nebs chronic LLE wound, diabetic vs. vascular - Wound Care consulted: Left Lower Legs - Elevate heels off of bed surface - Cleanse with NS, pat dry. Apply Triad to periwound, apply durfiber AG to open wound bed, cover with dry gauze, ABD pad and Elastic netting. : pAF - continue amiodarone, metoprolol succinate, apixaban HTN - continue metoprolol succinate, amlodipine CAD HLD - continue ASA, atorvastatin DM2 - basal-bolus insulin hypothyroidism - continue LT4 mood disorder - paroxetine, trazodone peripheral neuropathy - continue gabapentin, duloxetine morbid obesity - diet/exercise counseling VTE ppx - apixaban dispo - STR vs home with VNA In my clinical judgment, the patient requires continued inpatient hospitalization for the following reasons: IV ABX Total time managing care of this patient today: 35 minutes. Quality Stroke Does the patient have a stroke diagnosis?: No VTE Prior VTE?: No VTE Risk Level:: Medical - moderate - high VTE Device Contraindication: Treatment Not Indicated VTE Drug Contraindication: N/A - Med Ordered
--- NOTE | 2024-06-16 14:24 | MHC.CM.PN ---
Per rounds and EMR review, pt is not yet ready for DC, she is still requiring IV ABX. Cm to follow for DC needs.
[2024-06-16 16:13] LABS: Glucose, Whole Blood 309 mg/dL (60-115)
[2024-06-16 21:09] LABS: Glucose, Whole Blood 249 mg/dL (60-115)
[2024-06-16] MEDS: traZODone HCL 50 MG TABLET 150 MG PO (21:43)
[2024-06-16] MEDS: Atorvastatin Calcium 80 MG TABLET PO (21:44)
[2024-06-16] MEDS: Aspirin Enteric Coated 81 MG TABLET.DR PO (21:44)
[2024-06-16] MEDS: LORazepam 0.5 MG TABLET PO (22:02)
[2024-06-16] MEDS: hydrOXYzine HCL 50 MG TABLET PO (23:56)
[2024-06-17] VITALS (9 sets, daily range): BP systolic 118–150; BP diastolic 57–72; PULSE 53–84; RESP 16–20; TEMP 36.1–36.8; O2SAT 89–98
[2024-06-17] MEDS: Omeprazole 40 MG CAPSULE.DR PO (05:40)
[2024-06-17] MEDS: Levothyroxine Sodium 50 MCG TABLET PO (05:40)
[2024-06-17 07:22] LABS: Glucose, Whole Blood 241 mg/dL (60-115)
[2024-06-17 07:25] LABS: Anion Gap 14 (12-20); Blood Urea Nitrogen 44 mg/dL (9-16); Carbon Dioxide 37 mmol/L (22-29); Chloride 94 mmol/L (96-108); Creatinine Clr Calc Pharmacy 37.6; Estimated Glomerular Filt Rate 34; Glucose Random 270 mg/dL (60-115); Potassium 4.8 mmol/L (3.3-5.1); Sodium 140 mmol/L (135-145)
[2024-06-17] MEDS: Albuterol/Iprat 2.5/0.5MG 3 ML AMPUL.NEB INHALE ×3 (07:37→19:00)
[2024-06-17] MEDS: Insulin Lispro 100 UNIT/ML 3 ML VIAL SUBCUT ×5 (08:19→21:38)
[2024-06-17] MEDS: Metoprolol Succinate ER 50 MG TAB.ER.24H PO (08:23)
[2024-06-17] MEDS: Gabapentin 100 MG CAPSULE PO ×3 (08:23→21:38)
[2024-06-17] MEDS: Calcium Oyster Shell Elemental 500 MG TABLET PO ×2 (08:23→21:37)
[2024-06-17] MEDS: DULoxetine HCl 20 MG CAPSULE.DR PO (08:23)
[2024-06-17] MEDS: Amiodarone HCL 200 MG TABLET PO (08:23)
[2024-06-17] MEDS: Apixaban 5 MG TABLET PO ×2 (08:24→21:37)
[2024-06-17] MEDS: amLODIPine Besylate 5 MG TABLET PO (08:24)
[2024-06-17] MEDS: PARoxetine HCL 40 MG TABLET PO (08:24)
[2024-06-17] MEDS: Torsemide 20 MG TABLET 40 MG PO (08:24)
[2024-06-17] MEDS: 0.9 % Sodium Chloride Flush 3 ML SYRINGE IVFLUSH ×3 (08:31→21:39)
[2024-06-17 11:10] LABS: Glucose, Whole Blood 355 mg/dL (60-115)
[2024-06-17] MEDS: cefTRIAXone sodium 2 GM VIAL IVPUSH (11:32)
[2024-06-17] MEDS: hydrOXYzine HCL 25 MG TABLET PO ×2 (11:32→21:37)
[2024-06-17] MEDS: Fluconazole 150 MG TABLET PO (11:32)
[2024-06-17] MEDS: Nystatin Powder 15 GM BOTTLE 1 APPL TOPICAL ×2 (11:59→21:40)
--- NOTE | 2024-06-17 12:01 | P.PNIM_ITS ---
Subjective Subjective Date of Service: 06/17/24 Interval History: Offers no acute complaints of shortness of breath, no chest pain, no lightheadedness or dizziness, complaining of persistent perineal itching, feels anxious wishes to be discharged home, no acute events overnight no fevers, no chills. Noted to have elevated blood sugars in 200-300 range Review of Systems All other system reviewed Physical Exam 2 Vital Signs: Vital Signs: Last Vital Signs Temp 98.3 F 06/17/24 10:58 Pulse 72 06/17/24 10:58 Resp 20 06/17/24 10:58 BP 118/57 L 06/17/24 10:58 Pulse Ox 91 L 06/17/24 10:58 O2 Del Method Room Air 06/17/24 10:58 O2 Flow Rate 2 06/16/24 19:29 BMI result Body Mass Index 51.7 Const: Other: Gen: in no acute distress HEENT: sclera anicteric, moist mucus membranes Neck: supple, no JVD Lungs: clear to auscultation bilaterally Heart: regular rate and rhythm, no murmurs Abd: soft, non-tender, non-distended, obese Ext: no edema Skin: warm/well-perfused, venous vs diabetic wound LLE Neuro: alert and oriented x3, no focal findings Psych: appropriate affect Objective Data Active Medications Acetaminophen (Acetaminophen 325 Mg Tablet) 650 mg PO Q6H PRN PRN Reason: Pain, Mild (Pain Scale 1-3), fever or headache Last Admin: 06/14/24 20:28 Dose: 650 mg Documented By: SHARONA Albuterol/Ipratropium (Albuterol/Iprat 2.5/0.5mg 3 Ml Ampul.Neb) 3 ml INHALE RQ4H WHILE AWAKE PRN PRN Reason: Shortness of Breath/Wheezing Last Admin: 06/13/24 03:31 Dose: 3 ml Documented By: LUNA Albuterol/Ipratropium (Albuterol/Iprat 2.5/0.5mg 3 Ml Ampul.Neb) 3 ml INHALE RQ6H WHILE AWAKE [facility] Last Admin: 06/17/24 07:37 Dose: 3 ml Documented By: FRANCIS Amiodarone HCl (Amiodarone Hcl 200 Mg Tablet) 200 mg PO DAILY [facility] Last Admin: 06/17/24 08:23 Dose: 200 mg Documented By: LUANA Amlodipine Besylate (Amlodipine Besylate 5 Mg Tablet) 5 mg PO DAILY [facility]; Protocol Last Admin: 06/17/24 08:24 Dose: 5 mg Documented By: LUANA Apixaban (Apixaban 5 Mg Tablet) 5 mg PO BID [facility] Last Admin: 06/17/24 08:24 Dose: 5 mg Documented By: LUANA Aspirin (Aspirin Enteric Coated 81 Mg Tablet.) 81 mg PO BEDTIME [facility] Last Admin: 06/16/24 21:44 Dose: 81 mg Documented By: TAY Atorvastatin Calcium (Atorvastatin Calcium 80 Mg Tablet) 80 mg PO BEDTIME [facility] Last Admin: 06/16/24 21:44 Dose: 80 mg Documented By: TAY Benzonatate (Benzonatate 100 Mg Capsule) 100 mg PO TID PRN PRN Reason: Cough Calcium Carbonate (Calcium Carbonate 750 Mg Tab.Chew) 750 mg PO Q4H PRN PRN Reason: Heartburn Calcium Carbonate (Calcium Oyster Shell Elemental 500 Mg Tablet) 500 mg PO BID [facility] Last Admin: 06/17/24 08:23 Dose: 500 mg Documented By: LUANA Ceftriaxone Sodium (Ceftriaxone Sodium 2 Gm Vial) 2 gm IVPUSH Q24H [facility] Last Admin: 06/17/24 11:32 Dose: 2 gm Documented By: LUANA Duloxetine HCl (Duloxetine Hcl 20 Mg Capsule.) 20 mg PO DAILY [facility] Last Admin: 06/17/24 08:23 Dose: 20 mg Documented By: LUANA Gabapentin (Gabapentin 100 Mg Capsule) 100 mg PO TID [facility] Last Admin: 06/17/24 08:23 Dose: 100 mg Documented By: LUANA Glucose (Glucose Gel 15 Gm Gel..Gram.) 15 gm PO Q15M PRN; Protocol PRN Reason: per Hypoglycemia Standing Ord. Hydroxyzine HCl (Hydroxyzine Hcl 25 Mg Tablet) 25 mg PO Q6H PRN PRN Reason: Itching Last Admin: 06/17/24 11:32 Dose: 25 mg Documented By: LUANA Dextrose (D10) 250 mls @ 750 mls/hr IV Q15M PRN; Protocol PRN Reason: per Hypoglycemia Standing Ord. Insulin Human Lispro (Insulin Lispro 100 Unit/Ml 3 Ml Vial) 0 unit SUBCUT QIDACHS [facility]; Protocol Last Admin: 06/17/24 11:32 Dose: 12 unit Documented By: LUANA Comments: Per MD, give 12 units Levothyroxine Sodium (Levothyroxine Sodium 50 Mcg Tablet) 50 mcg PO DAILY@0600 [facility] Last Admin: 06/17/24 05:40 Dose: 50 mcg Documented By: YEVGENIY Magnesium Hydroxide (Milk Of Magnesia 30 Ml Oral.Susp) 30 ml PO DAILY PRN PRN Reason: Constipation Melatonin (Melatonin 3 Mg Tablet) 6 mg PO BEDTIME PRN PRN Reason: Insomnia Metoprolol Succinate (Metoprolol Succinate Er 50 Mg Tab.Er.24h) 50 mg PO DAILY [facility]; Protocol Last Admin: 06/17/24 08:23 Dose: 50 mg Documented By: LUANA Nystatin (Nystatin Powder 15 Gm Bottle) 1 appl TOPICAL BID [facility]; Protocol Last Admin: 06/17/24 11:59 Dose: 1 appl Documented By: LUANA Omeprazole (Omeprazole 40 Mg Capsule.Dr) 40 mg PO DAILY@0630 [facility] Last Admin: 06/17/24 05:40 Dose: 40 mg Documented By: YEVGENIY Ondansetron HCl (Ondansetron Hcl 4 Mg/2 Ml Vial) 4 mg IVPUSH Q8H PRN PRN Reason: Nausea and Vomiting Oxycodone HCl (Oxycodone Hcl Immed Release 5 Mg Tablet) 5 mg PO Q6H PRN PRN Reason: Pain, Moderate(Pain Scale 4-6) Last Admin: 06/15/24 16:46 Dose: 5 mg Documented By: ISAAC Paroxetine HCl (Paroxetine Hcl 40 Mg Tablet) 40 mg PO DAILY [facility] Last Admin: 06/17/24 08:24 Dose: 40 mg Documented By: LUANA Sodium Chloride (0.9 % Sodium Chloride Flush 3 Ml Syringe) 3 ml IVFLUSH QSHIFT [facility] Last Admin: 06/17/24 08:31 Dose: 3 ml Documented By: LUANA Sodium Zirconium Cyclosilicate (Sodium Zirconium Cyclosilicate 5 Gm Powd.Pack) 5 gm PO DAILY [facility] Last Admin: 06/17/24 08:32 Dose: Not Given Documented By: LUANA Non-Admin Reason: K WNL Torsemide (Torsemide 20 Mg Tablet) 40 mg PO DAILY [facility]; Protocol Last Admin: 06/17/24 08:24 Dose: 40 mg Documented By: LUANA Trazodone HCl (Trazodone Hcl 50 Mg Tablet) 150 mg PO BEDTIME [facility] Last Admin: 06/16/24 21:43 Dose: 150 mg Documented By: TAY Labs 06/15/24 07:25 06/17/24 06:41 Labs: Laboratory Results - last 24 hr 06/16/24 06/16/24 06/17/24 16:06 21:06 06:41 Hold Purple Top SEE NOTE Anion Gap 14 Estim Creat Clear Calc 37.6 Estimated GFR 34 POC Glucose 309 H 249 H Random Glucose 270 H Calcium 9.0 D 06/17/24 06/17/24 07:18 11:04 Hold Purple Top Anion Gap Estim Creat Clear Calc Estimated GFR POC Glucose 241 H 355 H* Random Glucose Calcium Microbiology Microbiology Results: Microbiology 06/16/24 09:01 Blood Culture - Preliminary Blood - Venous No growth after 24 hours. 06/16/24 09:13 Blood Culture - Preliminary Blood - Venous No growth after 24 hours. 06/11/24 06:13 Blood Culture - Final Blood - Venous No growth after 5 days. 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 Technically limited study due to body habitus as well as patient terminated they exam 2. 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 Has been on ceftriaxone since 06/13. Repeat BCx today 06/16. UA, unremarkable, chest x-ray showed increased pulmonary vascularity, no consolidation, likely from skin left leg wound/cellulitis, follow ID eval and repeat blood cultures MARK/CKD3 - Cr had improved to baseline but trended up again to 1.5 today Initially probably had cardiorenal syndrome and then perhaps over-diuresed. Follow BMP, hold torsemide hyperK - resolved; continue Lokelma mild intermittent asthma - prn nebs chronic LLE wound, diabetic vs. vascular - Wound Care consulted: Left Lower Legs - Elevate heels off of bed surface - Cleanse with NS, pat dry. Apply Triad to periwound, apply durfiber AG to open wound bed, cover with dry gauze, ABD pad and Elastic netting. : pAF - continue amiodarone, metoprolol succinate, apixaban HTN - continue metoprolol succinate, amlodipine dose reduced to 5 mg CAD HLD - continue ASA, atorvastatin DM2 - elevated blood sugars, on Lantus 65 units at bedtime, Farxiga 10 mg daily , will add Lantus and continue insulin sliding scale. hypothyroidism - continue LT4 mood disorder - paroxetine, trazodone, added hydroxyzine for anxiety peripheral neuropathy - continue gabapentin, duloxetine morbid obesity - diet/exercise counseling VTE ppx - apixaban dispo - STR vs home with VNA/PT In my clinical judgment, the patient requires continued inpatient hospitalization for the following reasons: IV ABX and expert consultation. Quality Stroke Does the patient have a stroke diagnosis?: No VTE Prior VTE?: No VTE Risk Level:: Medical - moderate - high VTE Device Contraindication: Treatment Not Indicated VTE Drug Contraindication: N/A - Med Ordered
[2024-06-17 16:12] LABS: Glucose, Whole Blood 344 mg/dL (60-115)
[2024-06-17] MEDS: diphenhydrAMINE HCL 25 MG CAPSULE PO (16:27)
[2024-06-17 21:27] LABS: Glucose, Whole Blood 270 mg/dL (60-115)
[2024-06-17] MEDS: Acetaminophen 325 MG TABLET 650 MG PO (21:37)
[2024-06-17] MEDS: traZODone HCL 50 MG TABLET 150 MG PO (21:37)
[2024-06-17] MEDS: Melatonin 3 MG TABLET 6 MG PO (21:37)
[2024-06-17] MEDS: Aspirin Enteric Coated 81 MG TABLET.DR PO (21:37)
[2024-06-17] MEDS: Atorvastatin Calcium 80 MG TABLET PO (21:38)
[2024-06-17] MEDS: Insulin Glargine,Hum.rec.anlog 100 UNIT/ML 10 ML VIAL 25 UNIT SUBCUT (21:38)
--- NOTE | 2024-06-17 23:25 | W.PM.IDCN ---
History of Present Illness Data of Consult Service Date: 06/17/24 Requesting physician: Everett Bran Primary Care Provider: Amanda Myers MD HPI Reason for consult: fusobacterium bacteremia She presents with shortness of breath and found to have mild CHF on CXR. She has had longtime left wound leg. She has 1/2 fusobacterium blood culture. I had seen her in past left leg same chronic ulcers. Review of Systems Musculoskeletal: Comments: left leg chronic wounds PMFSH Past Medical History Medical History Leg abrasion Abuse of non-prescription analgesics Type 2 diabetes mellitus with unspecified complications Other and unspecified hyperlipidemia Essential hypertension Atherosclerotic cardiovascular disease Urgency incontinence Osteoporosis Arthritis Asthma Hypertension Fibromyalgia Diabetes mellitus Surgical History Surgical History History of hernia repair Social History Social History Household Members: Family Housing: Apartment Do you presently have visiting nurse or other home services: Yes Unable to assess alcohol history related to: Refusing to respond Alcohol intake: never 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 Patient Tobacco Use Status: Never used Tobacco Advance Directives Date on File: 04/07/24 service: No Sexual orientation: Straight/Heterosexual Meds Allergies Allergy/AdvReac Type Severity Reaction Status Date / Time codeine [CODEINE] Allergy Intermediate HALLUCINATI Verified 06/11/24 05:19 ONS Active Medications: Current Medications Acetaminophen (Acetaminophen 325 Mg Tablet) 650 mg PO Q6H PRN PRN Reason: Pain, Mild (Pain Scale 1-3), fever or headache Last Admin: 06/17/24 21:37 Dose: 650 mg Albuterol/Ipratropium (Albuterol/Iprat 2.5/0.5mg 3 Ml Ampul.Neb) 3 ml INHALE RQ6H WHILE AWAKE [facility] Last Admin: 06/17/24 19:00 Dose: 3 ml Amiodarone HCl (Amiodarone Hcl 200 Mg Tablet) 200 mg PO DAILY [facility] Last Admin: 06/17/24 08:23 Dose: 200 mg Amlodipine Besylate (Amlodipine Besylate 5 Mg Tablet) 5 mg PO DAILY [facility]; Protocol Last Admin: 06/17/24 08:24 Dose: 5 mg Apixaban (Apixaban 5 Mg Tablet) 5 mg PO BID [facility] Last Admin: 06/17/24 21:37 Dose: 5 mg Aspirin (Aspirin Enteric Coated 81 Mg Tablet.Dr) 81 mg PO BEDTIME [facility] Last Admin: 06/17/24 21:37 Dose: 81 mg Atorvastatin Calcium (Atorvastatin Calcium 80 Mg Tablet) 80 mg PO BEDTIME [facility] Last Admin: 06/17/24 21:38 Dose: 80 mg Benzonatate (Benzonatate 100 Mg Capsule) 100 mg PO TID PRN PRN Reason: Cough Calcium Carbonate (Calcium Carbonate 750 Mg Tab.Chew) 750 mg PO Q4H PRN PRN Reason: Heartburn Calcium Carbonate (Calcium Oyster Shell Elemental 500 Mg Tablet) 500 mg PO BID [facility] Last Admin: 06/17/24 21:37 Dose: 500 mg Ceftriaxone Sodium (Ceftriaxone Sodium 2 Gm Vial) 2 gm IVPUSH Q24H [facility] Last Admin: 06/17/24 11:32 Dose: 2 gm Diphenhydramine HCl (Diphenhydramine Hcl 25 Mg Capsule) 25 mg PO Q6H PRN PRN Reason: Itching Last Admin: 06/17/24 16:27 Dose: 25 mg Duloxetine HCl (Duloxetine Hcl 20 Mg Capsule.Dr) 20 mg PO DAILY [facility] Last Admin: 06/17/24 08:23 Dose: 20 mg Gabapentin (Gabapentin 100 Mg Capsule) 100 mg PO TID [facility] Last Admin: 06/17/24 21:38 Dose: 100 mg Glucose (Glucose Gel 15 Gm Gel..Gram.) 15 gm PO Q15M PRN; Protocol PRN Reason: per Hypoglycemia Standing Ord. Hydroxyzine HCl (Hydroxyzine Hcl 25 Mg Tablet) 25 mg PO Q6H PRN PRN Reason: Itching Last Admin: 06/17/24 21:37 Dose: 25 mg Dextrose (D10) 250 mls @ 750 mls/hr IV Q15M PRN; Protocol PRN Reason: per Hypoglycemia Standing Ord. Insulin Glargine (Insulin Glargine,Hum.Rec.Anlog 100 Unit/Ml 10 Ml Vial) 25 unit SUBCUT BEDTIME [facility] Last Admin: 06/17/24 21:38 Dose: 25 unit Insulin Human Lispro (Insulin Lispro 100 Unit/Ml 3 Ml Vial) 0 unit SUBCUT QIDACHS [facility]; Protocol Last Admin: 06/17/24 21:38 Dose: 10 unit Levothyroxine Sodium (Levothyroxine Sodium 50 Mcg Tablet) 50 mcg PO DAILY@0600 [facility] Last Admin: 06/17/24 05:40 Dose: 50 mcg Magnesium Hydroxide (Milk Of Magnesia 30 Ml Oral.Susp) 30 ml PO DAILY PRN PRN Reason: Constipation Melatonin (Melatonin 3 Mg Tablet) 6 mg PO BEDTIME PRN PRN Reason: Insomnia Last Admin: 06/17/24 21:37 Dose: 6 mg Metoprolol Succinate (Metoprolol Succinate Er 50 Mg Tab.Er.24h) 50 mg PO DAILY [facility]; Protocol Last Admin: 06/17/24 08:23 Dose: 50 mg Nystatin (Nystatin Powder 15 Gm Bottle) 1 appl TOPICAL BID [facility]; Protocol Last Admin: 06/17/24 21:40 Dose: 1 appl Omeprazole (Omeprazole 40 Mg Capsule.Dr) 40 mg PO DAILY@0630 [facility] Last Admin: 06/17/24 05:40 Dose: 40 mg Ondansetron HCl (Ondansetron Hcl 4 Mg/2 Ml Vial) 4 mg IVPUSH Q8H PRN PRN Reason: Nausea and Vomiting Oxycodone HCl (Oxycodone Hcl Immed Release 5 Mg Tablet) 5 mg PO Q6H PRN PRN Reason: Pain, Moderate(Pain Scale 4-6) Last Admin: 06/15/24 16:46 Dose: 5 mg Paroxetine HCl (Paroxetine Hcl 40 Mg Tablet) 40 mg PO DAILY [facility] Last Admin: 06/17/24 08:24 Dose: 40 mg Sodium Chloride (0.9 % Sodium Chloride Flush 3 Ml Syringe) 3 ml IVFLUSH QSHIFT [facility] Last Admin: 06/17/24 21:39 Dose: 3 ml Sodium Zirconium Cyclosilicate (Sodium Zirconium Cyclosilicate 5 Gm Powd.Pack) 5 gm PO DAILY [facility] Last Admin: 06/17/24 08:32 Dose: Not Given Trazodone HCl (Trazodone Hcl 50 Mg Tablet) 150 mg PO BEDTIME [facility] Last Admin: 06/17/24 21:37 Dose: 150 mg Home Medications ?Medication ?Instructions ?Recorded ?Confirmed ?Last Taken ?Type insulin glargine 100 unit/mL 65 unit subcut BEDTIME 07/22/20 06/11/24 Unknown History subcutaneous solution (Lantus U-100 Insulin) amlodipine 10 mg tablet 10 mg PO DAILY 04/07/21 06/11/24 04/05/24 History atorvastatin 80 mg tablet 80 mg PO BEDTIME 04/07/21 06/11/24 10/24/23 20:00 History dapagliflozin propanediol 10 mg 10 mg PO DAILY 10/25/23 06/11/24 04/05/24 History tablet (Farxiga) levothyroxine 50 mcg tablet 50 mcg PO DAILY@0600 11/18/23 06/11/24 04/05/24 History duloxetine 20 mg capsule,delayed 20 mg PO DAILY 03/18/24 06/11/24 04/05/24 History release omeprazole 40 mg capsule,delayed 40 mg PO DAILY@0630 03/18/24 06/11/24 04/05/24 History release triamcinolone acetonide 0.1 % 1 appl topical BID PRN leg pain or 03/18/24 06/11/24 04/05/24 History topical cream swelling insulin syringe-needle U-100 1 mL #10 ea 03/29/24 Unknown History 31 gauge x 12/22 hydroxyzine HCl 25 mg tablet 25 mg PO Q8H PRN Itching 04/06/24 06/11/24 Unknown History trazodone 150 mg tablet 150 mg PO BEDTIME 04/06/24 06/11/24 Unknown History acetaminophen 500 mg tablet 1,000 mg PO TID PRN Pain 04/19/24 06/11/24 Unknown History amiodarone 200 mg tablet 200 mg PO DAILY 04/19/24 06/11/24 Unknown History melatonin 5 mg tablet 5 mg PO BEDTIME sleep 04/19/24 06/11/24 Unknown History aspirin 81 mg tablet,delayed 81 mg PO BEDTIME 06/11/24 06/11/24 Unknown History release calcium carbonate 500 mg PO BID 06/11/24 06/11/24 Unknown History clotrimazole 1 % topical cream 1 appl topical BID 06/11/24 06/11/24 Unknown History collagenase clostridium histo. 250 1 appl topical DAILY 06/11/24 06/11/24 Unknown History unit/gram topical ointment (Santyl) gabapentin 100 mg capsule 100 mg PO TID 06/11/24 06/11/24 Unknown History oxycodone-acetaminophen 5 mg-325 1 tab PO Q6H PRN pain 06/11/24 06/11/24 Unknown History mg tablet paroxetine HCl 40 mg tablet 40 mg PO DAILY 06/11/24 06/11/24 Unknown History Physical Exam Vital Signs: Vital Signs: Last Vital Signs Temp 97.1 F 06/17/24 20:00 Pulse 59 06/17/24 20:00 Resp 20 06/17/24 20:00 BP 144/66 H 06/17/24 20:00 Pulse Ox 98 06/17/24 20:00 O2 Del Method Nasal Cannula 06/17/24 20:00 O2 Flow Rate 3 06/17/24 20:00 BMI result Body Mass Index 51.7 Results Labs 06/15/24 07:25 06/17/24 06:41 Labs: BMP 06/17/24 06:41 Sodium 140 Potassium 4.8 Chloride 94 L Carbon Dioxide 37 H BUN 44 H Creatinine 1.50 H Calcium 9.0 D Microbiology Microbiology Results: Microbiology 06/16/24 09:01 Blood - Venous Blood Culture - Preliminary No growth after 24 hours. 06/16/24 09:13 Blood - Venous Blood Culture - Preliminary No growth after 24 hours. 06/11/24 06:13 Blood - Venous Blood Culture - Final No growth after 5 days. 06/11/24 05:41 Blood - Venous Blood Culture - Final Fusobacterium species 06/13/24 12:05 Urine clean catch - Clean Catch Midstream Urine Culture - Final Assessment and Plan (1) CHF exacerbation: Qualifiers: Heart failure type: unspecified Qualified Code(s): I50.9 - Heart failure, unspecified Status: Acute (2) Leg abrasion: Status: Acute Plan She has chronic LLE wounds similar to past. I had seen her couple months There is no acute bacterial process with no spreading cellulitis. The fusobacterium may be contaminant or related to foot infection. Check XR leg evaluate OM,possible MRI or CT scan if unremarkable. Switch to po Augmentin 21 d unless signs of sepsis or OM
[2024-06-18] VITALS (11 sets, daily range): BP systolic 125–169; BP diastolic 60–98; PULSE 50–87; RESP 14–20; TEMP 36.1–36.6; O2SAT 94–100
[2024-06-18] MEDS: Levothyroxine Sodium 50 MCG TABLET PO (05:42)
[2024-06-18] MEDS: Omeprazole 40 MG CAPSULE.DR PO (05:42)
[2024-06-18 07:51] LABS: Glucose, Whole Blood 215 mg/dL (60-115)
[2024-06-18] MEDS: Albuterol/Iprat 2.5/0.5MG 3 ML AMPUL.NEB INHALE ×3 (07:51→19:17)
[2024-06-18 07:53] LABS: Anion Gap 15 (12-20); Blood Urea Nitrogen 46 mg/dL (9-16); Calcium 8.9 mg/dL (8.4-10.2); Carbon Dioxide 36 mmol/L (22-29); Chloride 94 mmol/L (96-108); Creatinine Clr Calc Pharmacy 40.5; Estimated Glomerular Filt Rate 37; Glucose Random 231 mg/dL (60-115); Potassium 4.3 mmol/L (3.3-5.1); Sodium 141 mmol/L (135-145)
[2024-06-18] MEDS: Amiodarone HCL 200 MG TABLET PO (10:26)
[2024-06-18] MEDS: amLODIPine Besylate 5 MG TABLET PO (10:26)
[2024-06-18] MEDS: Gabapentin 100 MG CAPSULE PO ×2 (10:34→20:27)
[2024-06-18] MEDS: Calcium Oyster Shell Elemental 500 MG TABLET PO ×2 (10:34→20:28)
[2024-06-18] MEDS: PARoxetine HCL 40 MG TABLET PO (10:34)
[2024-06-18] MEDS: DULoxetine HCl 20 MG CAPSULE.DR PO (10:34)
[2024-06-18] MEDS: Apixaban 5 MG TABLET PO ×2 (10:34→20:27)
[2024-06-18] MEDS: hydrOXYzine HCL 25 MG TABLET PO (10:34)
[2024-06-18] MEDS: Nystatin Powder 15 GM BOTTLE 1 APPL TOPICAL ×2 (10:36→20:36)
[2024-06-18] MEDS: 0.9 % Sodium Chloride Flush 3 ML SYRINGE IVFLUSH ×3 (10:36→20:28)
[2024-06-18 11:40] LABS: Glucose, Whole Blood 265 mg/dL (60-115)
[2024-06-18] MEDS: cefTRIAXone sodium 2 GM VIAL IVPUSH (11:51)
[2024-06-18] MEDS: Insulin Lispro 100 UNIT/ML 3 ML VIAL SUBCUT ×3 (11:51→21:25)
--- NOTE | 2024-06-18 15:03 | HO.PM.IMPN ---
Subjective Subjective Date of Service: 06/18/24 Interval History: History obtained via maintenance mechanic helper. Resting comfortably no acute complaints this morning tolerating diet no nausea, no vomiting, no abdominal pain, no fever ,no chills, no complain of anxiety, blood sugars elevated. Review of Systems All other symptoms reviewed and are negative. Physical Exam Vital Signs: Vital Signs: Last Vital Signs Temp 97 F 06/18/24 11:28 Pulse 58 06/18/24 14:50 Resp 18 06/18/24 14:50 BP 169/73 H 06/18/24 11:28 Pulse Ox 97 06/18/24 11:28 O2 Del Method Nasal Cannula 06/18/24 11:28 O2 Flow Rate 2 06/18/24 11:28 BMI result Body Mass Index 51.7 Const: Other: Gen: in no acute distress HEENT: sclera anicteric, moist mucus membranes Neck: supple, no JVD Lungs: clear to auscultation bilaterally Heart: regular rate and rhythm, no murmurs Abd: soft, non-tender, non-distended, obese Ext: no edema Skin: warm/well-perfused, venous vs diabetic wound LLE Neuro: alert and oriented x3, no focal findings Psych: appropriate affect Objective Data Active Medications Acetaminophen (Acetaminophen 325 Mg Tablet) 650 mg PO Q6H PRN PRN Reason: Pain, Mild (Pain Scale 1-3), fever or headache Last Admin: 06/17/24 21:37 Dose: 650 mg Documented By: YEVGENIY Albuterol/Ipratropium (Albuterol/Iprat 2.5/0.5mg 3 Ml Ampul.Neb) 3 ml INHALE RQ6H WHILE AWAKE [facility] Last Admin: 06/18/24 14:49 Dose: 3 ml Documented By: CHARIS Amiodarone HCl (Amiodarone Hcl 200 Mg Tablet) 200 mg PO DAILY [facility] Last Admin: 06/18/24 10:26 Dose: 200 mg Documented By: LUANA Amlodipine Besylate (Amlodipine Besylate 5 Mg Tablet) 5 mg PO DAILY [facility]; Protocol Last Admin: 06/18/24 10:26 Dose: 5 mg Documented By: LUANA Apixaban (Apixaban 5 Mg Tablet) 5 mg PO BID [facility] Last Admin: 06/18/24 10:34 Dose: 5 mg Documented By: LUANA Aspirin (Aspirin Enteric Coated 81 Mg Tablet.) 81 mg PO BEDTIME [facility] Last Admin: 06/17/24 21:37 Dose: 81 mg Documented By: YEVGENIY Atorvastatin Calcium (Atorvastatin Calcium 80 Mg Tablet) 80 mg PO BEDTIME [facility] Last Admin: 06/17/24 21:38 Dose: 80 mg Documented By: YEVGENIY Benzonatate (Benzonatate 100 Mg Capsule) 100 mg PO TID PRN PRN Reason: Cough Calcium Carbonate (Calcium Carbonate 750 Mg Tab.Chew) 750 mg PO Q4H PRN PRN Reason: Heartburn Calcium Carbonate (Calcium Oyster Shell Elemental 500 Mg Tablet) 500 mg PO BID [facility] Last Admin: 06/18/24 10:34 Dose: 500 mg Documented By: LUANA Ceftriaxone Sodium (Ceftriaxone Sodium 2 Gm Vial) 2 gm IVPUSH Q24H [facility] Last Admin: 06/18/24 11:51 Dose: 2 gm Documented By: LUANA Diphenhydramine HCl (Diphenhydramine Hcl 25 Mg Capsule) 25 mg PO Q6H PRN PRN Reason: Itching Last Admin: 06/17/24 16:27 Dose: 25 mg Documented By: LUANA Duloxetine HCl (Duloxetine Hcl 20 Mg Capsule.) 20 mg PO DAILY [facility] Last Admin: 06/18/24 10:34 Dose: 20 mg Documented By: LUANA Gabapentin (Gabapentin 100 Mg Capsule) 100 mg PO TID [facility] Last Admin: 06/18/24 14:43 Dose: Not Given Documented By: LUANA Non-Admin Reason: Patient Asleep Glucose (Glucose Gel 15 Gm Gel..Gram.) 15 gm PO Q15M PRN; Protocol PRN Reason: per Hypoglycemia Standing Ord. Hydroxyzine HCl (Hydroxyzine Hcl 25 Mg Tablet) 25 mg PO Q6H PRN PRN Reason: Itching Last Admin: 06/18/24 10:34 Dose: 25 mg Documented By: LUANA Dextrose (D10) 250 mls @ 750 mls/hr IV Q15M PRN; Protocol PRN Reason: per Hypoglycemia Standing Ord. Insulin Glargine (Insulin Glargine,Hum.Rec.Anlog 100 Unit/Ml 10 Ml Vial) 25 unit SUBCUT BEDTIME [facility] Last Admin: 06/17/24 21:38 Dose: 25 unit Documented By: YEVGENIY Insulin Human Lispro (Insulin Lispro 100 Unit/Ml 3 Ml Vial) 0 unit SUBCUT QIDACHS [facility]; Protocol Last Admin: 06/18/24 11:51 Dose: 10 unit Documented By: LUANA Levothyroxine Sodium (Levothyroxine Sodium 50 Mcg Tablet) 50 mcg PO DAILY@0600 [facility] Last Admin: 06/18/24 05:42 Dose: 50 mcg Documented By: YEVGENIY Magnesium Hydroxide (Milk Of Magnesia 30 Ml Oral.Susp) 30 ml PO DAILY PRN PRN Reason: Constipation Melatonin (Melatonin 3 Mg Tablet) 6 mg PO BEDTIME PRN PRN Reason: Insomnia Last Admin: 06/17/24 21:37 Dose: 6 mg Documented By: YEVGENIY Metoprolol Succinate (Metoprolol Succinate Er 50 Mg Tab.Er.24h) 50 mg PO DAILY [facility]; Protocol Last Admin: 06/18/24 11:10 Dose: Not Given Documented By: LUANA Non-Admin Reason: bradycardic Nystatin (Nystatin Powder 15 Gm Bottle) 1 appl TOPICAL BID [facility]; Protocol Last Admin: 06/18/24 10:36 Dose: 1 appl Documented By: LUANA Omeprazole (Omeprazole 40 Mg Capsule.Dr) 40 mg PO DAILY@0630 [facility] Last Admin: 06/18/24 05:42 Dose: 40 mg Documented By: YEVGENIY Ondansetron HCl (Ondansetron Hcl 4 Mg/2 Ml Vial) 4 mg IVPUSH Q8H PRN PRN Reason: Nausea and Vomiting Oxycodone HCl (Oxycodone Hcl Immed Release 5 Mg Tablet) 5 mg PO Q6H PRN PRN Reason: Pain, Moderate(Pain Scale 4-6) Last Admin: 06/15/24 16:46 Dose: 5 mg Documented By: ISAAC Paroxetine HCl (Paroxetine Hcl 40 Mg Tablet) 40 mg PO DAILY [facility] Last Admin: 06/18/24 10:34 Dose: 40 mg Documented By: LUANA Sodium Chloride (0.9 % Sodium Chloride Flush 3 Ml Syringe) [address] [facility] Last Admin: 06/18/24 10:36 Dose: 3 ml Documented By: LUANA Sodium Zirconium Cyclosilicate (Sodium Zirconium Cyclosilicate 5 Gm Powd.Pack) 5 gm PO DAILY [facility] Last Admin: 06/18/24 08:21 Dose: Not Given Documented By: LUANA Non-Admin Reason: Physician Approved Trazodone HCl (Trazodone Hcl 50 Mg Tablet) 150 mg PO BEDTIME [facility] Last Admin: 06/17/24 21:37 Dose: 150 mg Documented By: YEVGENIY Labs 06/15/24 07:25 06/18/24 06:38 Labs: Laboratory Results - last 24 hr 06/17/24 06/17/24 06/18/24 16:09 21:21 06:38 Hold Purple Top SEE NOTE Anion Gap 15 Estim Creat Clear Calc 40.5 Estimated GFR 37 POC Glucose 344 H 270 H Random Glucose 231 H Calcium 8.9 06/18/24 06/18/24 07:46 11:32 Hold Purple Top Anion Gap Estim Creat Clear Calc Estimated GFR POC Glucose 215 H 265 H Random Glucose Calcium Microbiology Microbiology Results: Microbiology 06/16/24 09:01 Blood Culture - Preliminary Blood - Venous No growth after 48 hours. 06/16/24 09:13 Blood Culture - Preliminary Blood - Venous No growth after 48 hours. Assessment and Plan (1) MARK (acute kidney injury): Status: Acute (2) CHF exacerbation: Status: Acute (3) Cellulitis and abscess of left leg: Status: Acute Plan 73yo F with pAF on apixaban s/p cardioversion Jun 2023, HFpEF, HTN, CKD3, DM2, asthma, hypothyroidism presenting with dyspnea and admitted for CHF exacerbation also found to have Fusobacterium bacteremia acute/chronic HFpEF exacerbation Shortness of breath resolved, status post IV Lasix now on torsemide since 06/15, appears euvolemic, torsemide Hheld on 06/17 due to rising creatinine and bicarb - TTE 06/12: 1. Technically limited study due to body habitus as well as patient terminated they exam 2. 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 Has been on ceftriaxone since 06/13. Repeat BCx 06/16 negative times 48 hours. UA, unremarkable, chest x-ray showed increased pulmonary vascularity, no consolidation, likely from skin left leg wound/cellulitis, ID recommended x-ray of foot that showed mild periosteal reaction distal medial tibia, MRI recommended if negative will discharge on 21 days of Augmentin. MARK/CKD3 - Cr trending down, MARK Initially due to cardiorenal syndrome and then perhaps over-diuresed. Follow BMP, hold torsemide hyperK - resolved; dc Lokelma mild intermittent asthma - prn nebs chronic LLE wound, diabetic vs. vascular - Wound Care consulted: Left Lower Legs - Elevate heels off of bed surface - Cleanse with NS, pat dry. Apply Triad to periwound, apply durfiber AG to open wound bed, cover with dry gauze, ABD pad and Elastic netting. : pAF - continue amiodarone, metoprolol succinate, apixaban HTN - continue metoprolol succinate, amlodipine dose reduced to 5 mg CAD HLD - continue ASA, atorvastatin DM2 - elevated blood sugars, on Lantus 65 units at bedtime, Farxiga 10 mg daily , will add Lantus and continue insulin sliding scale. hypothyroidism - continue LT4 mood disorder - paroxetine, trazodone, added hydroxyzine for anxiety peripheral neuropathy - continue gabapentin, duloxetine morbid obesity - diet/exercise counseling VTE ppx - apixaban dispo - seen by Physical therapy they recommend STR vs home with VNA/PT In my clinical judgment, the patient requires continued inpatient hospitalization for the following reasons: IV ABX and further imaging study Quality Stroke Does the patient have a stroke diagnosis?: No VTE Prior VTE?: No VTE Risk Level:: Medical - moderate - high VTE Device Contraindication: Treatment Not Indicated VTE Drug Contraindication: N/A - Med Ordered
[2024-06-18 16:46] LABS: Glucose, Whole Blood 194 mg/dL (60-115)
[2024-06-18] MEDS: Aspirin Enteric Coated 81 MG TABLET.DR PO (20:27)
[2024-06-18] MEDS: Atorvastatin Calcium 80 MG TABLET PO (20:27)
[2024-06-18] MEDS: LORazepam 0.5 MG TABLET PO (20:28)
[2024-06-18 20:45] LABS: Glucose, Whole Blood 304 mg/dL (60-115)
[2024-06-18] MEDS: Insulin Glargine,Hum.rec.anlog 100 UNIT/ML 10 ML VIAL 35 UNIT SUBCUT (21:26)
[2024-06-18] MEDS: traZODone HCL 50 MG TABLET 150 MG PO (23:00)
[2024-06-19] VITALS (8 sets, daily range): BP systolic 129–180; BP diastolic 58–79; PULSE 54–78; RESP 14–16; TEMP 36–37.3; O2SAT 95–98
[2024-06-19] MEDS: Omeprazole 40 MG CAPSULE.DR PO (05:22)
[2024-06-19] MEDS: Levothyroxine Sodium 50 MCG TABLET PO (05:22)
[2024-06-19 07:46] LABS: Glucose, Whole Blood 206 mg/dL (60-115)
[2024-06-19 08:43] LABS: Erythrocyte Sedimentation Rate 30 MM/HR (0-20)
[2024-06-19] MEDS: PARoxetine HCL 40 MG TABLET PO (09:23)
[2024-06-19] MEDS: 0.9 % Sodium Chloride Flush 3 ML SYRINGE IVFLUSH ×3 (09:24→21:35)
[2024-06-19] MEDS: DULoxetine HCl 20 MG CAPSULE.DR PO (09:24)
[2024-06-19] MEDS: Gabapentin 100 MG CAPSULE PO ×3 (09:24→21:35)
[2024-06-19] MEDS: Metoprolol Succinate ER 50 MG TAB.ER.24H PO (09:24)
[2024-06-19] MEDS: amLODIPine Besylate 5 MG TABLET PO (09:24)
[2024-06-19] MEDS: cefTRIAXone sodium 2 GM VIAL IVPUSH (09:24)
[2024-06-19] MEDS: Apixaban 5 MG TABLET PO ×2 (09:24→21:35)
[2024-06-19] MEDS: Calcium Oyster Shell Elemental 500 MG TABLET PO ×2 (09:24→21:35)
[2024-06-19] MEDS: Amiodarone HCL 200 MG TABLET PO (09:24)
[2024-06-19] MEDS: Insulin Lispro 100 UNIT/ML 3 ML VIAL SUBCUT ×4 (09:32→21:52)
[2024-06-19 09:53] LABS: Anion Gap 12 (12-20); Blood Urea Nitrogen 39 mg/dL (9-16); Calcium 8.6 mg/dL (8.4-10.2); Carbon Dioxide 37 mmol/L (22-29); Chloride 96 mmol/L (96-108); Estimated Glomerular Filt Rate 40; Glucose Random 213 mg/dL (60-115); Potassium 4.9 mmol/L (3.3-5.1); Sodium 140 mmol/L (135-145)
--- NOTE | 2024-06-19 11:09 | P.PNNP_ITS ---
Subjective Subjective Date of Service: 06/19/24 Interval history: 73 y/o female with a medical history of afib, CAD, HFpEF, HTN, CKD3, DMII, asthma, hypothyroidism, wheelchair bound. ED on 06/11 with shortness of breath since night prior, BLE edema, home lasix reportedly held since 03/20 due to worsening renal function. patient is being treated for asthma and HF exacerabtion. Nephrology consulted for MARK on CKD3 Creatinine baseline 1.28, on 06/11 1.87, 06/12 is 1.83, 06/13 was 1.60, 06/14 1.42, 06/15 was 1.18; 06/18 was 1.39, 06/19 is 1.31 Potassium had been elevated received lokelma PRN; normalized 06/15 at 4.8; 5.1 06/16 UOP 3400mL over 06/14-06/15; no UOP recorded for 06/15-06/18; pt states she has been urinating comfortably without difficulty Ur Sodium 104 on 06/12 has been switched to torsemide 40mg daily PO from IVP lasix 40mg daily she denies chest pain, dizziness reports today breathing is comfortable states she is urinating comfortably/regularly She denies other concerns/complaints Physical Exam 2 Vital Signs: Vital Signs: Last Vital Signs Temp 97.0 F 06/19/24 07:26 Pulse 62 06/19/24 07:26 Resp 16 06/19/24 07:26 BP 180/79 H 06/19/24 07:26 Pulse Ox 98 06/19/24 07:26 O2 Del Method Nasal Cannula 06/19/24 07:26 O2 Flow Rate 2 06/19/24 07:26 BMI result Body Mass Index 51.7 Const: General: no acute distress, alert and awake Resp: Effort & Inspection: normal respiratory effort and able to speak in complete sentences Auscultation: clear to auscultation bilaterally Cardio: Jugular venous distension: no JVD Rate: regular rate Heart sounds: S1 normal heart sound present and S2 normal heart sound present GI: Palpation (GI): Soft to palpation and Tenderness to palpation present (GI) : General: Yes no CVA tenderness Back/Spine/Pelvis: Back: no CVA tenderness Skin: Lesions: lesion noted (LLE chronic ulcers, scabbed ) Rashes: no rashes Extrem: General: No edema (trace LE edema on exam) Objective Data Labs 06/15/24 07:25 06/19/24 08:30 Labs: Laboratory Results - last 24 hr 06/18/24 06/18/24 06/18/24 11:32 16:40 20:33 ESR Sodium Potassium Chloride Carbon Dioxide Anion Gap BUN Creatinine Estim Creat Clear Calc Estimated GFR POC Glucose 265 H 194 H 304 H Random Glucose Calcium 06/19/24 06/19/24 06/19/24 05:51 07:31 08:30 ESR 30 H Sodium 140 Potassium 4.9 Chloride 96 Carbon Dioxide 37 H Anion Gap 12 BUN 39 H Creatinine 1.31 Estim Creat Clear Calc 43.0 Estimated GFR 40 POC Glucose 206 H Random Glucose 213 H Calcium 8.6 Microbiology Microbiology Results: Microbiology 06/16/24 09:01 Blood - Venous Blood Culture - Preliminary No growth after 48 hours. 06/16/24 09:13 Blood - Venous Blood Culture - Preliminary No growth after 48 hours. 06/11/24 06:13 Blood - Venous Blood Culture - Final No growth after 5 days. 06/11/24 05:41 Blood - Venous Blood Culture - Final Fusobacterium species 06/13/24 12:05 Urine clean catch - Clean Catch Midstream Urine Culture - Final Procedures Date of Service Date of Service: 06/19/24 Assessment & Plan Assessment and plan (1) CKD stage 3 due to type 2 diabetes mellitus: Status: Acute (2) MARK (acute kidney injury): Status: Acute (3) CHF exacerbation: Status: Acute (4) Acute hyperkalemia: Status: Acute Plan MARK on CKD3 likely secondary to CHF exacerbation pt having adequate response to diuretics, creatinine uptrend likely secondary to overdiuresis as creatinine is improving with holding diuretics will check urine chloride given elevated serum bicarb hold diuretics today and will reassess tomorrow hyperkalemia likely secondary to heart failure, resolved. Continue low potassium diet. continue to monitor daily electrolytes and renal function continue supportive care, avoid nephrotoxic substances will continue to follow Discussed with Dr Gallegos Time Spent With Patient Time: Total time managing care of this patient today ____ minutes. Progress Note: Quality Stroke Does the patient have a stroke diagnosis?: No
[2024-06-19 11:46] LABS: Glucose, Whole Blood 234 mg/dL (60-115)
--- NOTE | 2024-06-19 12:02 | MHC.CM.PN ---
EMR REVIEWED, PT W/CHF EXAC AND CHRONIC LLE WOUND, PER ID REC'S MRI PENDING OF LLE/TIBIA TO R/O OSTEOMYELITIS, IF NEG PT WILL DC ON ORAL ABX, CM WILL CONT TO FOLLOW DC NEEDS.
[2024-06-19] MEDS: Nystatin Powder 15 GM BOTTLE 1 APPL TOPICAL ×2 (12:29→21:54)
[2024-06-19] MEDS: Albuterol/Iprat 2.5/0.5MG 3 ML AMPUL.NEB INHALE ×2 (13:08→20:02)
[2024-06-19] MEDS: diphenhydrAMINE HCL 25 MG CAPSULE PO (14:25)
[2024-06-19] MEDS: gadobutroL 10 ML VIAL IVPUSH (15:55)
--- NOTE | 2024-06-19 16:02 | P.PNIM_ITS ---
Subjective Subjective Date of Service: 06/19/24 Interval History: Offers no acute complaints, at home walk with walker short distances, not on home oxygen, denies fever, no chills tolerating diet, supposed to be on CPAP but noncompliant. Review of Systems All other system reviewed and are negative. Physical Exam 2 Vital Signs: Vital Signs: Last Vital Signs Temp 99.1 F 06/19/24 11:28 Pulse 58 06/19/24 13:08 Resp 16 06/19/24 13:08 BP 136/58 L 06/19/24 11:28 Pulse Ox 98 06/19/24 11:28 O2 Del Method Nasal Cannula 06/19/24 11:28 O2 Flow Rate 2 06/19/24 11:28 BMI result Body Mass Index 51.7 Const: Other: Gen: in no acute distress HEENT: sclera anicteric, moist mucus membranes Neck: supple, no JVD Lungs: clear to auscultation bilaterally, diminished Heart: regular rate and rhythm, no murmurs Abd: soft, non-tender, non-distended, obese Ext: no edema Skin: warm/well-perfused, venous vs diabetic wound LLE Neuro: alert and oriented x3, no focal findings Psych: appropriate affect Objective Data Active Medications Acetaminophen (Acetaminophen 325 Mg Tablet) 650 mg PO Q6H PRN PRN Reason: Pain, Mild (Pain Scale 1-3), fever or headache Last Admin: 06/17/24 21:37 Dose: 650 mg Documented By: YEVGENIY Albuterol/Ipratropium (Albuterol/Iprat 2.5/0.5mg 3 Ml Ampul.Neb) 3 ml INHALE RQ6H WHILE AWAKE [facility] Last Admin: 06/19/24 13:08 Dose: 3 ml Documented By: SEVERIANO Amiodarone HCl (Amiodarone Hcl 200 Mg Tablet) 200 mg PO DAILY [facility] Last Admin: 06/19/24 09:24 Dose: 200 mg Documented By: TAYE Amlodipine Besylate (Amlodipine Besylate 5 Mg Tablet) 5 mg PO DAILY [facility]; Protocol Last Admin: 06/19/24 09:24 Dose: 5 mg Documented By: TAYE Apixaban (Apixaban 5 Mg Tablet) 5 mg PO BID [facility] Last Admin: 06/19/24 09:24 Dose: 5 mg Documented By: TAYE Aspirin (Aspirin Enteric Coated 81 Mg Tablet.) 81 mg PO BEDTIME [facility] Last Admin: 06/18/24 20:27 Dose: 81 mg Documented By: PARISH Atorvastatin Calcium (Atorvastatin Calcium 80 Mg Tablet) 80 mg PO BEDTIME [facility] Last Admin: 06/18/24 20:27 Dose: 80 mg Documented By: PARISH Benzonatate (Benzonatate 100 Mg Capsule) 100 mg PO TID PRN PRN Reason: Cough Calcium Carbonate (Calcium Carbonate 750 Mg Tab.Chew) 750 mg PO Q4H PRN PRN Reason: Heartburn Calcium Carbonate (Calcium Oyster Shell Elemental 500 Mg Tablet) 500 mg PO BID [facility] Last Admin: 06/19/24 09:24 Dose: 500 mg Documented By: TAYE Ceftriaxone Sodium (Ceftriaxone Sodium 2 Gm Vial) 2 gm IVPUSH Q24H [facility] Last Admin: 06/19/24 09:24 Dose: 2 gm Documented By: TAYE Diphenhydramine HCl (Diphenhydramine Hcl 25 Mg Capsule) 25 mg PO Q8H PRN PRN Reason: Itching Last Admin: 06/19/24 14:25 Dose: 25 mg Documented By: TAYE Duloxetine HCl (Duloxetine Hcl 20 Mg Capsule.) 20 mg PO DAILY [facility] Last Admin: 06/19/24 09:24 Dose: 20 mg Documented By: TAYE Gabapentin (Gabapentin 100 Mg Capsule) 100 mg PO TID [facility] Last Admin: 06/19/24 14:25 Dose: 100 mg Documented By: TAYE Glucose (Glucose Gel 15 Gm Gel..Gram.) 15 gm PO Q15M PRN; Protocol PRN Reason: per Hypoglycemia Standing Ord. Dextrose (D10) 250 mls @ 750 mls/hr IV Q15M PRN; Protocol PRN Reason: per Hypoglycemia Standing Ord. Insulin Glargine (Insulin Glargine,Hum.Rec.Anlog 100 Unit/Ml 10 Ml Vial) 35 unit SUBCUT BEDTIME [facility] Last Admin: 06/18/24 21:26 Dose: 35 unit Documented By: PARISH Insulin Human Lispro (Insulin Lispro 100 Unit/Ml 3 Ml Vial) 0 unit SUBCUT QIDACHS [facility]; Protocol Last Admin: 06/19/24 14:25 Dose: 8 unit Documented By: TAYE Levothyroxine Sodium (Levothyroxine Sodium 50 Mcg Tablet) 50 mcg PO DAILY@0600 [facility] Last Admin: 06/19/24 05:22 Dose: 50 mcg Documented By: PARISH Magnesium Hydroxide (Milk Of Magnesia 30 Ml Oral.Susp) 30 ml PO DAILY PRN PRN Reason: Constipation Melatonin (Melatonin 3 Mg Tablet) 6 mg PO BEDTIME PRN PRN Reason: Insomnia Last Admin: 06/17/24 21:37 Dose: 6 mg Documented By: YEVGENIY Metoprolol Succinate (Metoprolol Succinate Er 50 Mg Tab.Er.24h) 50 mg PO DAILY [facility]; Protocol Last Admin: 06/19/24 09:24 Dose: 50 mg Documented By: TAYE Nystatin (Nystatin Powder 15 Gm Bottle) 1 appl TOPICAL BID [facility]; Protocol Last Admin: 06/19/24 12:29 Dose: 1 appl Documented By: TAYE Omeprazole (Omeprazole 40 Mg Capsule.Dr) 40 mg PO DAILY@0630 [facility] Last Admin: 06/19/24 05:22 Dose: 40 mg Documented By: PARISH Ondansetron HCl (Ondansetron Hcl 4 Mg/2 Ml Vial) 4 mg IVPUSH Q8H PRN PRN Reason: Nausea and Vomiting Oxycodone HCl (Oxycodone Hcl Immed Release 5 Mg Tablet) 5 mg PO Q6H PRN PRN Reason: Pain, Moderate(Pain Scale 4-6) Last Admin: 06/15/24 16:46 Dose: 5 mg Documented By: ISAAC Paroxetine HCl (Paroxetine Hcl 40 Mg Tablet) 40 mg PO DAILY [facility] Last Admin: 06/19/24 09:23 Dose: 40 mg Documented By: TAYE Sodium Chloride (0.9 % Sodium Chloride Flush 3 Ml Syringe) 3 ml IVFSH [facility] Last Admin: 06/19/24 09:24 Dose: 3 ml Documented By: TAYE Trazodone HCl (Trazodone Hcl 50 Mg Tablet) 150 mg PO BEDTIME [facility] Last Admin: 06/18/24 23:00 Dose: 150 mg Documented By: PARISH Labs 06/15/24 07:25 06/19/24 08:30 Labs: Laboratory Results - last 24 hr 06/18/24 06/18/24 06/19/24 16:40 20:33 05:51 ESR 30 H Anion Gap Estim Creat Clear Calc Estimated GFR POC Glucose 194 H 304 H Random Glucose Calcium 06/19/24 06/19/24 06/19/24 07:31 08:30 11:32 ESR Anion Gap 12 Estim Creat Clear Calc 43.0 Estimated GFR 40 POC Glucose 206 H 234 H Random Glucose 213 H Calcium 8.6 Microbiology Microbiology Results: Microbiology 06/16/24 09:01 Blood Culture - Preliminary Blood - Venous No growth after 48 hours. 06/16/24 09:13 Blood Culture - Preliminary Blood - Venous No growth after 48 hours. Assessment and Plan (1) MARK (acute kidney injury): Status: Acute (2) CHF exacerbation: Status: Acute Plan 73yo F with pAF on apixaban s/p cardioversion Jun 2023, HFpEF, HTN, CKD3, DM2, asthma, hypothyroidism presenting with dyspnea and admitted for CHF exacerbation also found to have Fusobacterium bacteremia acute/chronic HFpEF exacerbation Shortness of breath resolved, status post IV Lasix transitioned to torsemide on 06/15, torsemide Held on 06/17 due to rising creatinine and bicarb - TTE 06/12: 1. Technically limited study due to body habitus as well as patient terminated exam 2. Normal LV ejection fraction 55-60% with mild LVH with grade 2 diastolic dysfunction Acute hypoxic respiratory failure Wean oxygen as tolerated, not on O2 Likely due to heart failure as above/obstructive sleep apnea noncompliant with CPAP Encourage incentive spirometry /out bed chair. 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 Has been on ceftriaxone since 06/13. Repeat BCx 06/16 negative times 48 hours. UA, unremarkable, chest x-ray showed increased pulmonary vascularity, no consolidation, likely from skin left leg wound/cellulitis, ID recommended x-ray of foot that showed mild periosteal reaction distal medial tibia, MRI obtained report pending, if negative will discharge on 21 days of Augmentin. MARK/CKD3 - MARK Initially due to cardiorenal syndrome and then perhaps over-diuresed. Creatinine normalized , will resume low-dose torsemide hyperK - resolved; dc Lokelma mild intermittent asthma - prn nebs chronic LLE wound, diabetic vs. vascular - Wound Care consulted: Left Lower Legs - Elevate heels off of bed surface - Cleanse with NS, pat dry. Apply Triad to periwound, apply durfiber AG to open wound bed, cover with dry gauze, ABD pad and Elastic netting. : pAF - continue amiodarone, metoprolol succinate, apixaban HTN - continue metoprolol succinate, amlodipine dose reduced to 5 mg CAD HLD - continue ASA, atorvastatin DM2 - elevated blood sugars, on Lantus 65 units at bedtime, Farxiga 10 mg daily , will add Lantus and continue insulin sliding scale. hypothyroidism - continue LT4 mood disorder - paroxetine, and trazodone peripheral neuropathy - continue gabapentin, duloxetine morbid obesity - diet/exercise counseling VTE ppx - apixaban dispo - seen by Physical therapy they recommend STR vs home with VNA/PT In my clinical judgment, the patient requires continued inpatient hospitalization for the following reasons: IV ABX and further imaging study. Quality Stroke Does the patient have a stroke diagnosis?: No VTE Prior VTE?: No VTE Risk Level:: Medical - moderate - high VTE Device Contraindication: Treatment Not Indicated VTE Drug Contraindication: N/A - Med Ordered
[2024-06-19 17:10] LABS: Glucose, Whole Blood 234 mg/dL (60-115)
[2024-06-19] MEDS: oxyCODONE HCl Immed Release 5 MG TABLET PO (18:20)
[2024-06-19] MEDS: Atorvastatin Calcium 80 MG TABLET PO (21:35)
[2024-06-19] MEDS: traZODone HCL 50 MG TABLET 150 MG PO (21:35)
[2024-06-19] MEDS: Aspirin Enteric Coated 81 MG TABLET.DR PO (21:35)
[2024-06-19 21:36] LABS: Glucose, Whole Blood 340 mg/dL (60-115)
[2024-06-19] MEDS: Insulin Glargine,Hum.rec.anlog 100 UNIT/ML 10 ML VIAL 35 UNIT SUBCUT (21:52)
[2024-06-20] VITALS (7 sets, daily range): BP systolic 128–156; BP diastolic 60–92; PULSE 52–95; RESP 16–20; TEMP 36.2–36.8; O2SAT 88–96
[2024-06-20] MEDS: Omeprazole 40 MG CAPSULE.DR PO (05:36)
[2024-06-20] MEDS: Levothyroxine Sodium 50 MCG TABLET PO (05:36)
[2024-06-20 07:05] LABS: Glucose, Whole Blood 215 mg/dL (60-115)
[2024-06-20] MEDS: Albuterol/Iprat 2.5/0.5MG 3 ML AMPUL.NEB INHALE ×2 (08:28→13:46)
[2024-06-20 10:01] LABS: Anion Gap 10 (12-20); Blood Urea Nitrogen 39 mg/dL (9-16); Calcium 8.4 mg/dL (8.4-10.2); Carbon Dioxide 36 mmol/L (22-29); Chloride 96 mmol/L (96-108); Creatinine Clr Calc Pharmacy 37.8; Estimated Glomerular Filt Rate 34; Glucose Random 230 mg/dL (60-115); Potassium 5.1 mmol/L (3.3-5.1); Sodium 137 mmol/L (135-145)
--- NOTE | 2024-06-20 10:53 | MHC.CM.PN ---
IMM 06/20/24, CM MET W/PT VIA COMPONENT TECHNICIAN TO DISCUSS DISPO, P.T. REC'S HOME W/PT VS STR, PT PREFERS TO DC HOME W/[facility]UMP OF [employer] [facility] AND [employer] [facility], PT REPORTS SHE WILL CONTACT [facility] FOR TRANSPORT HOME.
[2024-06-20 11:04] LABS: Glucose, Whole Blood 309 mg/dL (60-115)
[2024-06-20] MEDS: DULoxetine HCl 20 MG CAPSULE.DR PO (11:12)
[2024-06-20] MEDS: PARoxetine HCL 40 MG TABLET PO (11:12)
[2024-06-20] MEDS: Gabapentin 100 MG CAPSULE PO (11:12)
[2024-06-20] MEDS: Calcium Oyster Shell Elemental 500 MG TABLET PO (11:12)
[2024-06-20] MEDS: amLODIPine Besylate 5 MG TABLET PO (11:12)
[2024-06-20] MEDS: Metoprolol Succinate ER 50 MG TAB.ER.24H PO (11:12)
[2024-06-20] MEDS: Amiodarone HCL 200 MG TABLET PO (11:12)
[2024-06-20] MEDS: Apixaban 5 MG TABLET PO (11:12)
[2024-06-20] MEDS: 0.9 % Sodium Chloride Flush 3 ML SYRINGE IVFLUSH (11:13)
[2024-06-20] MEDS: Nystatin Powder 15 GM BOTTLE 1 APPL TOPICAL (11:14)
[2024-06-20] MEDS: cefTRIAXone sodium 2 GM VIAL IVPUSH (11:15)
--- NOTE | 2024-06-20 11:18 | HO.WOUND ---
Wound Consult:Follow up 73yr old?[place] [facility] [place] - See progress notes and H&P for detailed history.? Wound consult follow up for Left Lower Leg wounds.? Patient agreeable to assessment and photo documentation.? Bilateral Lower Legs assessed see below. Right leg intact no injury noted. Etiology is unclear the patient does have history of Diabetes and evidence to suggest Vascular disease such as Venous Dermatitis Stasis. Recommend the patient followup with Outpt wound clinic for wound healing. Recommend follow up out patient Wound Clinic at [address] [place] [address] and to call for an appointment at time of discharge. [phone].? 06/12/24 Left Leg 06/20/24 Etiology: ?Unclear Etiology suspect Venous wound vs Diabetic wound Present on Admission Wound Bed: improved wound bed - red moist tissue no slough noted to central wound Drainage / Odor: castaneda yellow drainage noted Edges: ? Irregular [place] wound: ?[place] pigmentation some swelling - No Induration, Fluctuance or Warmth noted Pain: patient denies pain Goals of Treatment: ? Durafiber Ag for moisture management and autolytic debridement No new topical reocmmendations needed at this time - continue with Durafiber AG. Recommendations: 1. Turn and Reposition every 2 hours and as needed for patient comfort.? Use pillows or wedges to support off loading positions. 2. Off Load all bony prominences with use of pillows and heel boots if needed.? Apply Preventative foams where needed. ? 3. Monitor for incontinence and moisture control, use barrier creams when needed for prevention and treatment. 4. Provide adequate and supplemental nutrition.? 5. Order low air loss mattress. 6. When applicable maintain blood glucose levels per Providers order. 7. Left Lower Legs - Elevate heels off of bed surface - Cleanse with NS, pat dry. Apply Triad to periwound, apply durfiber AG to open wound bed, cover with dry gauze, ABD pad and Elastic netting. Change every other day while inpatient. Recommend follow up out patient Wound Clinic at [address] [place] [address] and to call for an appointment at time of discharge. [phone].? Re-consult wound care Nurse for wound deterioration or wound changes.
--- NOTE | 2024-06-20 13:29 | PM.DS ---
DS: Providers Provider Date of Service: 06/20/24 Date of admission: 06/11/24 12:57 Date of discharge: 06/20/24 Primary care physician: Amanda Myers MD Consults: 06/11/24 14:35 Consult to Wound Care Routine Reason for consultation: Chronic lower left leg wound 06/12/24 07:17 Consult to Nephrology Routine Consulting Provider: [facility] Reason for consultation: mark Has provider been notified: No 06/16/24 07:51 Consult to Infectious Diseases Routine Consulting Provider: [facility] Reason for consultation: Fusobacterium bacteremia 06/19/24 17:05 Consult to Wound Care Routine Reason for consultation: lle wound Has provider been notified: Yes DS: Diagnosis Discharge Diagnosis (1) MARK (acute kidney injury): Status: Acute (2) CHF exacerbation: Status: Acute DS: Summary Hospital Course Hospital Course: Date of Service: 06/11/24 Attending physician on admission: Everett Bran Chief Complaint: SOB Pt is a 73-year-old female with a PMH significant for?paroxysmal AFib on Eliquis s/p cardioversion 06/2023, CAD, HFpEF, HTN, CKD 3, insulin-dependent type 2 diabetes, asthma, and hypothyroidism who presents to the ED with SOB and difficulty breathing since last night. Patient reports she feels like her ?lungs hurt? and she is unable to breathe, feeling ?like I am dying?. Also complains of chest tightness associated with breathing, occasional nonproductive cough. Denies fever, chills, nausea, vomiting, abdominal pain. Patient lives at home with the family. Reports being mostly wheelchair-bound with little to no ambulation. Chronic lower left leg wound at baseline. Patient states she has not taken home Lasix since time last discharge on 03/21/2024. Review of medical records indicates pt's home Lasix was held on 03/20/2024 due to worsening creatinine, but apparently never resumed outpatient during follow up. In the ED pt's vitals largely stable and WNL, satting as low as 90% on RA. Labs were significant for hyperkalemia of 5.9, BUN 28, creatinine 1.85, and BNP 369. No leukocytosis. Stable H&H. CXR showed mild pulmonary edema. EKG demonstrated sinus bradycardia of 55 with first-degree AV block but no evidence of significant ST elevations or depressions, similar to previous. Pt was treated with DuoNebs, Solu-Medrol, ceftriaxone, doxycycline, IVF, and Lokelma. Pt will be admitted to the hospital for treatment and further evaluation of acute respiratory distress in the setting of acute HFpEF exacerbation. Hospital course: 73yo F with pAF on apixaban s/p cardioversion Jun 2023, HFpEF, HTN, CKD3, DM2, asthma, hypothyroidism presented with dyspnea and admitted for CHF exacerbation, and admitted with a diagnosis of acute on chronic CHF. acute/chronic HFpEF exacerbation, admitted to telemetry unit treated with IV Lasix with good response, noted to have rising creatinine and bicarb likely due to over-diuresis therefore diuretics were held, and echocardiogram showed normal EF 55-60% with mild LVH with grade 2 diastolic function, prior to discharge creatinine improved therefore placed on low-dose torsemide Acute hypoxic respiratory failure likely due to CHF as above and obstructive sleep apnea noncompliant with CPAP, home O2 eval obtained patient does not qualify for home oxygen. 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, noted to have normal urinalysis, chest x-ray showed no consolidation, infection likely due to left leg wound with surrounding cellulitis, evaluated by ID x-ray of foot showed mild periosteal reaction distal medial tibia, MRI right leg showed no definite abnormality in distal fibula or ankle, possible non displaced fracture of tibial plateau, however patient has no knee pain, with good range of motion, and ambulating without difficulty, patient treated with IV ceftriaxone for bacteremia,repeat blood cultures negative times 48 hours, case discussed with ID she recommend by mouth Augmentin x2 weeks. MARK/CKD3, noted to have acute kidney injury likely cardiorenal syndrome and then perhaps due to over-diuresis creatinine improved started on low-dose torsemide. hyperK due to MARK resolved, treated with Lokelma. Mild intermittent asthma no acute exacerbation noted continue home inhalers. chronic LLE wound, diabetic vs. vascular seen by wound nurse , recommend to follow daily dressing ,Elevate heels off of bed surface - Cleanse with NS, pat dry. Apply Triad to periwound, apply durfiber AG to open wound bed, cover with dry gauze, ABD pad and Elastic netting. Paroxysmal atrial fibrillation recommend to continue amiodarone, metoprolol succinate, and apixaban HTN - continue metoprolol succinate, and amlodipine dose reduced to 5 mg In regard to coronary artery disease and hyperlipidemia recommend to continue aspirin and Lipitor DM2 continue home medications and follow diabetic diet hypothyroidism continue levothyroxine Mood disorder continue paroxetine, and trazodone peripheral neuropathy continue gabapentin, and duloxetine Time Attestation Discharge Coordination Time (in mins): 40 Quality: Safe Use of Opioids Does Pt have an Active Cancer Diagnosis on the Problem List?: No Quality: Stroke Does the patient have a stroke diagnosis?: No Physical Exam Vital Signs: Vital Signs: Last Vital Signs Temp 97.4 F 06/20/24 11:10 Pulse 53 06/20/24 11:10 Resp 20 06/20/24 11:10 BP 136/60 06/20/24 11:10 Pulse Ox 94 06/20/24 11:10 O2 Del Method Room Air 06/20/24 11:10 O2 Flow Rate 2 06/20/24 07:22 BMI result Body Mass Index 51.7 Const: Other: Gen: in no acute distress HEENT: sclera anicteric, moist mucus membranes Neck: supple, no JVD Lungs: clear to auscultation bilaterally, diminished Heart: regular rate and rhythm, no murmurs Abd: soft, non-tender, non-distended, obese Ext: no edema Skin: warm/well-perfused, venous vs diabetic wound LLE Neuro: alert and oriented x3, no focal findings Psych: appropriate affect DS: Data Data Completed and Pending Labs on day of discharge: Laboratory Results - last 24 hr 06/19/24 06/19/24 06/19/24 05:51 17:05 21:32 Hold Purple Top Sodium Potassium Chloride Carbon Dioxide Anion Gap BUN Creatinine Estim Creat Clear Calc Estimated GFR POC Glucose 234 H 340 H Random Glucose Calcium C-React Prot High Sens 3.0 06/20/24 06/20/24 06/20/24 06:54 08:14 10:55 Hold Purple Top SEE NOTE Sodium 137 Potassium 5.1 Chloride 96 Carbon Dioxide 36 H Anion Gap 10 L BUN 39 H Creatinine 1.49 H Estim Creat Clear Calc 37.8 Estimated GFR 34 POC Glucose 215 H 309 H Random Glucose 230 H Calcium 8.4 C-React Prot High Sens Preliminary micro results at discharge 06/16/24 09:01 Blood Culture - Preliminary Blood - Venous No growth after 48 hours. 06/16/24 09:13 Blood Culture - Preliminary Blood - Venous No growth after 48 hours. Discharge Plan Discharge Anticipated Discharge Date/Time: 06/20/24 12:54 Patient Disposition: Home Health Service Discharge Diagnosis: Acute on chronic heart failure with preserved EF Acute hypoxic respiratory failure Fusobacterium bacteremia Referrals: [facility] [Other] - 1 Day (RESUMPTION OF CARE, HOME PHYSICAL THERAPY) Amanda Watkins MD [Primary Care Provider] - 1 Week Discharge Medications: New nystatin 100,000 unit/gram Powder 1 appl topical BID Qty: 30 0RF Protocol: Apply to: Apply to: perenieum amoxicillin-pot clavulanate 875-125 mg tablet 1 tab PO Q12H Qty: 28 0RF torsemide 20 mg tablet 20 mg PO DAILY Qty: 30 0RF amlodipine 5 mg Tablet 5 mg PO DAILY Qty: 30 0RF Protocol: Hold for SBP< HOLD for SBP < : 90 Continued metoprolol succinate 50 mg tablet extended release 24 hr 50 mg PO DAILY Qty: 90 5RF insulin glargine [Lantus U-100 Insulin] 100 unit/mL solution 65 unit subcut BEDTIME atorvastatin 80 mg tablet 80 mg PO BEDTIME dapagliflozin propanediol [Farxiga] 10 mg tablet 10 mg PO DAILY Eliquis 5 mg Tablet 5 mg PO BID Qty: 60 0RF omeprazole 40 mg capsule,delayed release(DR/EC) 40 mg PO DAILY@0630 triamcinolone acetonide 0.1 % cream 1 appl topical BID PRN (Reason: leg pain or swelling) duloxetine 20 mg capsule,delayed release(DR/EC) 20 mg PO DAILY trazodone 150 mg tablet 150 mg PO BEDTIME acetaminophen 500 mg Tablet 1,000 mg PO TID PRN (Reason: Pain) amiodarone 200 mg tablet 200 mg PO DAILY melatonin 5 mg tablet 5 mg PO BEDTIME aspirin 81 mg tablet,delayed release (DR/EC) 81 mg PO BEDTIME oxycodone-acetaminophen 5-325 mg tablet 1 tab PO Q6H PRN (Reason: pain) calcium carbonate 500 mg calcium (1,250 mg) tablet 500 mg PO BID gabapentin 100 mg capsule 100 mg PO TID Santyl 250 unit/gram ointment 1 appl topical DAILY clotrimazole 1 % cream 1 appl topical BID paroxetine HCl 40 mg tablet 40 mg PO DAILY levothyroxine 50 mcg tablet 50 mcg PO DAILY@0600 (DME) insulin syringe-needle U-100 1 mL 31 gauge x 5/16 syringe See Rx Instructions .ROUTE .MEDSUPPLY Qty: 10 Rx Instructions: As directed Discontinued hydroxyzine HCl 25 mg tablet 25 mg PO Q8H PRN (Reason: Itching) amlodipine 10 mg tablet 10 mg PO DAILY No Action hydroxyzine HCl 25 mg tablet 25 mg PO TID Discharge Orders: Discharge Order (Routine); Ordered 06/20/24 Ordered By: Everett Bran Diet: Diabetic diet Activity on Discharge: As tolerated Stand Alone Forms: Patient Portal Discharge page Print Language: [place] Other Ambulatory Orders: Basic Metabolic Panel (Routine) Timeframe: 1 Week Facility: [facility] - Location: Laboratory Ordered By: Everett Bran Activity Restrictions/Additional Instructions: Topical Wound Care Recommendations: Left Lower Legs - Elevate heels off of bed surface - Cleanse with NS, pat dry. Apply Triad to periwound, apply durfiber AG to open wound bed, cover with dry gauze, ABD pad and Elastic netting. Change every other day to every three days. Recommend follow up out patient Wound Clinic at [address] [place] [id number] and to call for an appointment at time of discharge. [phone].? Care Plan Goals: Fusobacterium bacteremia/leg infection take Augmentin 1 tablet twice daily for 2 weeks Continue dressing change as above Strongly recommend to use CPAP at night Health Concerns: Diabetes mellitus recommend to follow diabetic diet, monitor blood sugar q.i.d. Take all home medications as prescribed Plan of Treatment: Outpatient follow-up with primary care physician call for appointment Assessment: As above Discharge Date/Time: 06/20/24 15:33
--- NOTE | 2024-06-20 13:40 | P.F2F_ITS ---
Service Date Service Date: 06/20/24 Encounter Date of encounter: 06/20/24 Reasons for Services Signs and symptoms assessed: Shortness of breaths/sleep apnea/left lower extremity wound Reason for senior living: wound care, diabetic teaching and medication management Reason for physical therapy: home safety and mobility Homebound: Leaving the home is medically contraindicated at this time without the asist of a device and/or another person due th the listed conditions above and below. Reason homebound: weakness related to hospital stay Certification: Based on the above findings, I certify that this patient is confined to the home and needs intermittent senior living care, physical therapy and/or speech therapy, or continues to need occupational therapy. The patient is under my care, and I have initiated the establishment of the plan of care. The patient will be followed by a physician who will periodically review the plan of care. Time Spent With Patient Time: Total time managing care of this patient today ____ minutes.
== END 2024-06-20 15:33 | disposition home health service (06) | DRG 291 ==
LOC: HO.ED 07:13 → HO.EDOVER 13:08 → HO.IMC 19:39
PROVIDERS: Family Medicine; Nurse Practitioner Family; Admitting Provider Student in an Organized Health Care Education/Training Program; Emergency Provider Internal Medicine; PCP Internal Medicine; Visit Provider Hospitalist
DX: I13.0 Hypertensive heart and chronic kidney disease with heart failure and stage 1 through stage 4 chronic kidney disease, or unspecified chronic kidney disease (principal); I50.33 Acute on chronic diastolic (congestive) heart failure; J96.01 Acute respiratory failure with hypoxia; N17.9 Acute kidney failure, unspecified; J45.21 Mild intermittent asthma with (acute) exacerbation; Z68.43 Body mass index [BMI] 50.0-59.9, adult; L97.829 Non-pressure chronic ulcer of other part of left lower leg with unspecified severity; N18.30 Chronic kidney disease, stage 3 unspecified; E11.22 Type 2 diabetes mellitus with diabetic chronic kidney disease; G47.33 Obstructive sleep apnea (adult) (pediatric); E87.5 Hyperkalemia; I25.10 Atherosclerotic heart disease of native coronary artery without angina pectoris; E11.42 Type 2 diabetes mellitus with diabetic polyneuropathy; E66.813 Obesity, class 3; E03.9 Hypothyroidism, unspecified; Z20.822 Contact with and (suspected) exposure to COVID-19; Z99.3 Dependence on wheelchair; Z91.148 Patient's other noncompliance with medication regimen for other reason; Z71.3 Dietary counseling and surveillance; Z79.4 Long term (current) use of insulin; Z79.01 Long term (current) use of anticoagulants; Z79.82 Long term (current) use of aspirin; Z79.890 Hormone replacement therapy; Z79.899 Other long term (current) drug therapy
CPT/HCPCS: 36415; 71046; 73590; 73720; 80048; 80053; 81001; 82803; 82947; 83605; 83735; 83880; 84300; 84484; 85025; 85027; 85652; 86141; 87040; 87076; 87086; 87185; 87205; 87635; 93005; 93308; 94640; 97162; 99285; A9585; J0696; J1940; J2919; Q9957

== ENCOUNTER → 2024-06-11 05:29 | Outpatient (BNV) | payer OTHER, SELFPAY | PROVIDERS: Emergency Provider Internal Medicine; PCP Internal Medicine; Visit Provider Internal Medicine | DX: R06.02 Shortness of breath (principal) | CPT/HCPCS: 93010 ==

== ENCOUNTER 2024-06-11 12:57 | Outpatient (BNV) | payer OTHER, SELFPAY | END 2024-06-12 07:00 | PROVIDERS: Admitting Provider Student in an Organized Health Care Education/Training Program; Emergency Provider Internal Medicine; PCP Internal Medicine; Visit Provider Internal Medicine Cardiovascular Disease | DX: I35.8 Other nonrheumatic aortic valve disorders (principal); I51.89 Other ill-defined heart diseases | CPT/HCPCS: 93308; 93321; 93325 ==

== ENCOUNTER → 2024-06-11 12:57 | Outpatient (BNV) | payer OTHER, SELFPAY | PROVIDERS: Admitting Provider Student in an Organized Health Care Education/Training Program; Emergency Provider Internal Medicine; PCP Internal Medicine; Visit Provider Hospitalist | DX: N17.9 Acute kidney failure, unspecified (principal); I50.9 Heart failure, unspecified | CPT/HCPCS: 99222; 99232; 99239; G0180 ==

== ENCOUNTER → 2024-06-11 12:57 | Outpatient (BNV) | payer OTHER, SELFPAY | PROVIDERS: Admitting Provider Student in an Organized Health Care Education/Training Program; Emergency Provider Internal Medicine; PCP Internal Medicine; Visit Provider Internal Medicine | DX: I50.9 Heart failure, unspecified (principal); S80.819A Abrasion, unspecified lower leg, initial encounter | CPT/HCPCS: 99222 ==

== ENCOUNTER → 2024-06-11 12:57 | Outpatient (BNV) | payer OTHER, SELFPAY | PROVIDERS: Admitting Provider Student in an Organized Health Care Education/Training Program; Emergency Provider Internal Medicine; PCP Internal Medicine; Visit Provider Nurse Practitioner Family | DX: N17.9 Acute kidney failure, unspecified (principal); E11.22 Type 2 diabetes mellitus with diabetic chronic kidney disease; N18.30 Chronic kidney disease, stage 3 unspecified; I50.9 Heart failure, unspecified; E87.5 Hyperkalemia | CPT/HCPCS: 99222; 99231; 99232 ==

== ENCOUNTER 2024-06-22 16:55 | Inpatient (IN) | payer OTHER, SELFPAY ==
[2024-06-22] VITALS (7 sets, daily range): BP systolic 102–151; BP diastolic 24–100; PULSE 50–56; RESP 17–20; TEMP 37–37.6; O2SAT 79–100; BMI 38.9
--- NOTE | ~2024-06-22 | XR_ITS ---
EXAMINATION: XR KNEE, LEFT CLINICAL INFORMATION: Tibial plateau fracture. COMPARISON: Left tibia MRI dated 06/19/2024. TECHNIQUE: Four views of the left knee. FINDINGS: Irregular area of somewhat linear sclerosis within the lateral tibial plateau contacting the central aspect of the tibial spine, consistent with a nondisplaced fracture which was partially visualized on the prior MRI. The fracture gap along the articular surface measures up to 0.2 cm. No dislocation. Mild tricompartmental joint space narrowing with marginal osteophytes. No concerning lytic or blastic osseous lesion. Small joint effusion. XR/XR knee LT 4V IMPRESSION: 1. Nondisplaced lateral tibial plateau fracture with a fracture gap along the articular surface measuring up to 0.2 cm. 2. Mild tricompartmental osteoarthritis. Small joint effusion. 3. No acute fracture or dislocation. Electronically signed by: Jaziel Guerra MD 06/23/2024 04:59 PM [facility]
--- NOTE | ~2024-06-22 | XR_ITS ---
EXAMINATION: XR CHEST CLINICAL INFORMATION: Dyspnea. COMPARISON: Most recent chest radiograph dated 06/11/2024. TECHNIQUE: Frontal view of the chest was obtained. FINDINGS: Hypoinflation of the lungs with linear atelectasis versus early infiltrate in the left upper lobe. No pleural effusion or pneumothorax. Stable cardiomediastinal silhouette. XR/XR chest 1V IMPRESSION: Hypoinflation of the lungs with linear atelectasis versus early infiltrate in the left upper lobe. Electronically signed by: Jaziel Guerra MD 06/22/2024 06:55 PM [facility]
--- NOTE | ~2024-06-22 | CT_ITS ---
EXAMINATION: CT HEAD WITHOUT CONTRAST CLINICAL INFORMATION: Fall. Anticoagulated. COMPARISON: Most recent CT head dated 04/19/2024. TECHNIQUE: Contiguous axial imaging was performed from the skull base to vertex without intravenous administration of contrast. This CT examination was performed using dose optimization techniques as appropriate, variously including the following: *Automated exposure control *Adjustment of mA and/or kV according to patient size (this includes techniques or standardized protocols for targeted exams where dose is matched to indication/reason for exam; i.e. extremities or head) *Use of iterative reconstruction technique DLP: 893 mGy-cm FINDINGS: No acute intracranial hemorrhage. No mass effect or midline shift. No parenchymal lesion. Lacunar infarcts redemonstrated within the right basal ganglia. The costa-white differentiation is otherwise maintained. No extra-axial fluid collection. The ventricles and sulci are unremarkable. The basal cisterns are patent. The calvarium is intact. The visualized paranasal sinuses and mastoid air cells are clear. CT/CT head/brain wo IV con IMPRESSION: No acute intracranial hemorrhage or mass effect. Electronically signed by: Jaziel Guerra MD 06/22/2024 06:42 PM [facility]
--- NOTE | ~2024-06-22 | XR_ITS ---
EXAMINATION: XR ANKLE, RIGHT CLINICAL INFORMATION: Pain following fall. COMPARISON: Right ankle radiograph dated 01/09/2016. TECHNIQUE: AP, lateral, and mortise views of the right ankle. FINDINGS: No acute fracture or dislocation. The ankle mortise is maintained. Small tibiotalar marginal osteophytes. No talar osteochondral lesion. Dystrophic soft tissue calcifications. Circumferential soft tissue swelling. Plantar calcaneal spur. XR/XR ankle RT min 3V IMPRESSION: 1. Circumferential soft tissue swelling without acute fracture or dislocation. 2. Mild tibiotalar osteoarthritis. 3. Plantar calcaneal spur. Electronically signed by: Jaziel Guerra MD 06/22/2024 06:55 PM EST
--- NOTE | ~2024-06-22 | XR_ITS ---
EXAMINATION: XR ANKLE, LEFT CLINICAL INFORMATION: Pain following fall. COMPARISON: Left tibia MRI dated 06/19/2024. TECHNIQUE: AP, lateral, and mortise views of the left ankle. FINDINGS: No acute fracture or dislocation. The ankle mortise is maintained. Small tibiotalar marginal osteophytes. No talar osteochondral lesion. Dystrophic soft tissue calcifications. Plantar calcaneal spur. XR/XR ankle LT min 3V IMPRESSION: 1. No acute fracture or dislocation. 2. Mild tibiotalar osteoarthritis. 3. Plantar calcaneal spur. Electronically signed by: Jaziel Guerra MD 06/22/2024 06:55 PM [facility]
--- NOTE | 2024-06-22 17:06 | ED.FALL ---
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 Family caught her no reported headstrike but she is a poor historian. C/o R and L ankle pain. EMS states her initial saturation was 80%, patient denies any complain other than foot pain. She denies preceding symptoms. She keeps falling asleep during the interview and exam. family notes since she came home she just sleeps and has been very weak MD complaint: fall Onset (ago): hour(s) (1) Fall from: wheelchair Fall witnessed: yes, by family Place fall occurred: home Loss of consciousness: none Prolonged down time: no Symptoms prior to fall: none Context: tripped/slipped Location of injury - extremities: right: ankle Severity: moderate Quality: aching Associated symptoms (after fall): denies Related Data Home Medications ?Medication ?Instructions ?Recorded ?Confirmed insulin glargine 100 unit/mL 65 unit subcut BEDTIME 07/22/20 06/22/24 subcutaneous solution (Lantus U-100 Insulin) atorvastatin 80 mg tablet 80 mg PO BEDTIME 04/07/21 06/22/24 dapagliflozin propanediol 10 mg 10 mg PO DAILY 10/25/23 06/22/24 tablet (Farxiga) levothyroxine 50 mcg tablet 50 mcg PO DAILY@0600 11/18/23 06/22/24 duloxetine 20 mg capsule,delayed 20 mg PO DAILY 03/18/24 06/22/24 release omeprazole 40 mg capsule,delayed 40 mg PO DAILY@0630 03/18/24 06/22/24 release triamcinolone acetonide 0.1 % 1 appl topical BID PRN leg pain or 03/18/24 06/22/24 topical cream swelling insulin syringe-needle U-100 1 mL #10 ea 03/29/24 31 gauge x 12/22 trazodone 150 mg tablet 150 mg PO BEDTIME 04/06/24 06/22/24 acetaminophen 500 mg tablet 1,000 mg PO TID PRN Pain 04/19/24 06/22/24 amiodarone 200 mg tablet 200 mg PO DAILY 04/19/24 06/22/24 melatonin 5 mg tablet 5 mg PO BEDTIME sleep 04/19/24 06/22/24 aspirin 81 mg tablet,delayed 81 mg PO BEDTIME 06/11/24 06/22/24 release calcium carbonate 500 mg PO BID 06/11/24 06/22/24 clotrimazole 1 % topical cream 1 appl topical BID 06/11/24 06/22/24 collagenase clostridium histo. 250 1 appl topical DAILY 06/11/24 06/22/24 unit/gram topical ointment (Santyl) gabapentin 100 mg capsule 100 mg PO TID 06/11/24 06/22/24 oxycodone-acetaminophen 5 mg-325 1 tab PO Q6H PRN pain 06/11/24 06/22/24 mg tablet paroxetine HCl 40 mg tablet 40 mg PO DAILY 06/11/24 06/22/24 hydroxyzine HCl 25 mg tablet 25 mg PO TID 06/22/24 06/22/24 Previous Rx's ?Medication ?Instructions ?Recorded apixaban 5 mg tablet (Eliquis) 5 mg PO BID #60 tabs 11/03/23 metoprolol succinate 50 mg 50 mg PO DAILY #90 tabs 05/23/24 tablet,extended release 24 hr amlodipine 5 mg tablet 5 mg PO DAILY #30 tabs 06/20/24 amoxicillin 875 mg-potassium 1 tab PO Q12H #28 tabs 06/20/24 clavulanate 125 mg tablet nystatin 100,000 unit/gram topical 1 appl topical BID #30 grams 06/20/24 powder torsemide 20 mg tablet 20 mg PO DAILY #30 tabs 06/20/24 Allergies Allergy/AdvReac Type Severity Reaction Status Date / Time codeine [CODEINE] Allergy Intermediate HALLUCINATI Verified 06/22/24 17:18 ONS Review of Systems Review of Systems: Constitutional : No Fever, No Chills ENT/Mouth : No Ear Pain, No Hoarseness, No sore throat Eyes: No Eye Pain, No Swelling, No Redness, No Foreign Body Cardiovascular : No Chest Pain, No SOB Respiratory : No Cough, No Dyspnea Gastrointestinal : No Nausea, No Vomiting, No Diarrhea, No abdominal Pain Genitourinary : No Dysuria, No Hematuria Musculoskeletal : positive joint pain, No Myalgias, No Joint Swelling Skin : No Skin lacerations, No rash, pos skin lesion Neuro : No Weakness, No Numbness, No Loss of Consciousness, No Dizziness, No Headache All other systems reviewed and are negative [facility] Past Medical History Attestation statement: The following information was validated with the patient. Source: old records reviewed Medical History Leg abrasion Abuse of non-prescription analgesics Type 2 diabetes mellitus with unspecified complications Other and unspecified hyperlipidemia Essential hypertension Atherosclerotic cardiovascular disease Urgency incontinence Osteoporosis Arthritis Asthma Hypertension Fibromyalgia Diabetes mellitus Surgical History History of hernia repair Social History Social History Household Members: Family Housing: Apartment Do you presently have visiting nurse or other home services: Yes Unable to assess alcohol history related to: Refusing to respond Alcohol intake: never 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 Oriented X3. No acute distress. Eyes: Pupils equal, round and reactive to light. ENT: Pharynx normal. atraumatic Neck: Normal inspection. Neck supple. on pain reported CVS: Normal heart rate and rhythm. Pulses normal. Respiratory: No respiratory distress. Breath sounds diminished with poor effort Abdomen: Soft and nontender. Skin: Skin warm and dry. Normal skin color. Normal skin turgor. Extremities: No lower extremity edema. reports ttp along R lateral malleolus denies knee pain or foot pain - distal pulses intact, SILT intact, L ankle reports ttp distal NV intact, she has chronic wounds on anterior shay but no open laceration and bleeding is controlled Neuro: Oriented X 3. No motor deficit. No sensory deficit. Course Course Course Narrative: family here states she has not been right since she came home- weak tired and not responding for 2 days. had episode of hypotension - fluids and albumin ordered as well as cefepime and vancomycin Medications Administered Discontinued Medications Generic Name Dose Route Start Last Admin Trade Name Jesusq PRN Reason Stop Dose Admin Sodium Chloride 1,000 mls @ 999 mls/hr 06/22/24 18:52 06/22/24 22:22 Ns IV 06/22/24 19:52 Infused .Q1H1M ONE Infusion Albumin Human 100 mls @ 133.333 mls/hr 06/22/24 19:00 06/22/24 21:52 Kedbumin 25 % IV 06/22/24 20:44 Infused Q1H JULIANNE Infusion Cefepime HCl 2 gm in 50 mls @ 100 mls/hr 06/22/24 19:00 06/22/24 20:29 Maxipime IV 06/22/24 19:29 Infused ONCE ONE Infusion Vancomycin HCl 2,000 mg in 500 mls @ 250 mls/hr 06/22/24 19:00 06/22/24 22:23 Vancomycin/Ns IV 06/22/24 20:59 Infused ONCE ONE Infusion Medical Decision Making Medical Decision Making [facility] Narrative: 73 yo female with PMH of CHF, CKD, ANILA, asthma, aflutter on eliquis, CAD, depression and anxiety, DM2, HLD here with c/o slip and fall out of wheelchair - she c/o R ankle pain denies pain in foot or knee, L ankle pain - both NV intact. She is sleepy on exam at this time I am going to obtain labs, VBG, CT head/CXR, ankle xrays. She is alert and oriented but slow to respond. She was just discharged 2 days ago after CHF, hypoxia, fusobacterium bacteremia - on augmentin for 21 days. Differential Diagnosis Differential Diagnoses: The differential diagnosis associated with the presentation includes encephalopathy, fatigue, CO2 retention, head injury, ankle injuries Admission/Observation Consideration of admission/observation: Escalation of care including admission/observation considered admit for further work up Consult Healthcare Provider Management of the patient was discussed with: Hospitalist (will admit) Lab Data MDM Lab Attestation statement: I reviewed the patient's lab results. VBG is compensated 06/22/24 18:47 06/22/24 18:47 Labs: Lab Results 06/22/24 06/22/24 06/22/24 Range/Units 18:44 18:45 18:47 WBC 6.3 (4.8-10.8) X10*3/uL RBC 3.55 L (4.20-5.50) X10*6/uL Hgb 8.7 L (12.0-16.0) g/dl Hct 29.1 L (37.0-47.0) % MCV 82.0 (80.0-98.0) fL MCH 24.5 L (27.0-33.0) pg MCHC 29.9 L (31.0-35.0) g/dl RDW 15.3 (11.0-16.0) % Plt Count 169 D (160-400) X10*3/uL MPV 10.1 (9.4-12.3) fL Immature Gran % (Auto) 0.6 H (0.0-0.4) % Neut % (Auto) 67.7 (45-73) % Lymph % (Auto) 15.0 L (20-40) % [place] % (Auto) 11.9 H (2-11) % Eos % (Auto) 3.8 (0-4) % Baso % (Auto) 1.0 (0-2) % Lymph # (Auto) 0.9 L (1.2-4.9) X10*3/uL [place] # (Auto) 0.8 (0.1-1.2) X10*3/uL Eos # (Auto) 0.2 (0.0-0.4) X10*3/uL Baso # (Auto) 0.1 (0.0-0.2) X10*3/uL Abs Immat Gran (auto) 0.04 H (0.00-0.03) X10*3/uL Absolute Neuts (auto) 4.3 (2.0-8.3) x10*3/uL Absolute Nucleated RBC 0.000 (0.0-0.012) X10*3/uL Nucleated RBC % (auto) 0.0 (0.0-0.2) /100WBC VBG pH (7.32-7.43) VBG pCO2 mmHg VBG pO2 mmHg VBG HCO3 (22-26) mmol/L VBG O2 Saturation % VBG Base Excess mmol/L Sodium 137 (135-145) mmol/L Potassium 4.7 (3.3-5.1) mmol/L Chloride 88 L (96-108) mmol/L Carbon Dioxide 41 H* (22-29) mmol/L Anion Gap 13 (12-20) BUN 40 H (9-16) mg/dL Creatinine 1.94 H (0.5-1.4) mg/dL Estim Creat Clear Calc 31.8 Estimated GFR 25 POC Glucose 229 H (60-115) mg/dL Random Glucose 260 H (60-115) mg/dL Lactic Acid 1.5 (0.5-2.0) mmol/L Calcium 8.3 L (8.4-10.2) mg/dL Magnesium 2.0 (1.6-2.6) mg/dL Total Bilirubin 0.3 (0.0-1.0) mg/dL Direct Bilirubin 0.1 (0.0-0.5) mg/dL AST 27 (5-31) U/L ALT 15 (0-31) U/L Alkaline Phosphatase 69 (39-117) U/L Troponin I High Sens 8.3 (<3.5-17.0) ng/L B-Natriuretic Peptide 184 H (<100) pg/mL Total Protein 6.4 L (6.5-8.0) g/dL Albumin 3.1 L (3.5-5.0) g/dL 06/22/24 Range/Units 18:52 WBC (4.8-10.8) X10*3/uL RBC (4.20-5.50) X10*6/uL Hgb (12.0-16.0) g/dl Hct (37.0-47.0) % MCV (80.0-98.0) fL MCH (27.0-33.0) pg MCHC (31.0-35.0) g/dl RDW (11.0-16.0) % Plt Count (160-400) X10*3/uL MPV (9.4-12.3) fL Immature Gran % (Auto) (0.0-0.4) % Neut % (Auto) (45-73) % Lymph % (Auto) (20-40) % [place] % (Auto) (2-11) % Eos % (Auto) (0-4) % Baso % (Auto) (0-2) % Lymph # (Auto) (1.2-4.9) X10*3/uL [place] # (Auto) (0.1-1.2) X10*3/uL Eos # (Auto) (0.0-0.4) X10*3/uL Baso # (Auto) (0.0-0.2) X10*3/uL Abs Immat Gran (auto) (0.00-0.03) X10*3/uL Absolute Neuts (auto) (2.0-8.3) x10*3/uL Absolute Nucleated RBC (0.0-0.012) X10*3/uL Nucleated RBC % (auto) (0.0-0.2) /100WBC VBG pH 7.43 (7.32-7.43) VBG pCO2 72 mmHg VBG pO2 59 mmHg VBG HCO3 48 H (22-26) mmol/L VBG O2 Saturation 84.0 % VBG Base Excess 21.2 mmol/L Sodium (135-145) mmol/L Potassium (3.3-5.1) mmol/L Chloride (96-108) mmol/L Carbon Dioxide (22-29) mmol/L Anion Gap (12-20) BUN (9-16) mg/dL Creatinine (0.5-1.4) mg/dL Estim Creat Clear Calc Estimated GFR POC Glucose (60-115) mg/dL Random Glucose (60-115) mg/dL Lactic Acid (0.5-2.0) mmol/L Calcium (8.4-10.2) mg/dL Magnesium (1.6-2.6) mg/dL Total Bilirubin (0.0-1.0) mg/dL Direct Bilirubin (0.0-0.5) mg/dL AST (5-31) U/L ALT (0-31) U/L Alkaline Phosphatase (39-117) U/L Troponin I High Sens (<3.5-17.0) ng/L B-Natriuretic Peptide (<100) pg/mL Total Protein (6.5-8.0) g/dL Albumin (3.5-5.0) g/dL Independent Interpretation I performed an independent interpretation of an: EKG, Plain X-Ray (pneumonia) and CT Scan (no ICH) Interpretation: Rate: 51 Rhythm: sinus bradycardia [place]: left Normal P waves. Normal PUSH[place]. Normal QRS complex. ST T wave : inverted t waves V1-V2, no WILLY qTC: 449 prior studies: no acute ischemia The study has been interpreted contemporaneously by me. . Radiology Impression Discussion of test interpretation with radiology: I have reviewed the radiologist's reading. Independent Historian Clinical information obtained from an independent historian. History obtained from or confirmed by: EMS and Other (family) External Record Review External record reviewed: Inpatient record Discharge Plan Discharge Clinical Impression: Weakness, MARK (acute kidney injury) Left upper lobe pneumonia Qualifiers: Pneumonia type: due to unspecified organism Qualified Code(s): J18.9 - Pneumonia, unspecified organism Patient Disposition: Admitted As Inpatient Sepsis Bolus Exclusion Sepsis Bolus Exclusion CHF/Renal Failure This patient met severe sepsis criteria due to the following condition(s):: Hypotension In my clinical judgement the administration of 30 ml/kg of crystalloid would be detrimental to this patient due to the patient's following conditions:: NYHA class III or IV Heart Failure(symptoms with low exertion or rest), Stage III or IV Chronic Kidney Disease (GFR<30) and Concern for fluid overload Replace the 30 mls/kg with (Zero amount not acceptable and all fluids for severe sepsis must be given at GREATER than 125 mls/hr) Crystalloids amount given in mls: (rate must be at least 150cc/hr): 100 Colloids amount given in mls:: 200
--- NOTE | 2024-06-22 18:18 | ECG_ITS ---
Test Reason : FALL Blood Pressure : / mmHG Vent. Rate : 051 BPM Atrial Rate : 051 BPM P-R Int : 192 ms QRS Dur : 090 ms QT Int : 488 ms P-R-T Axes : 049 -23 018 degrees QTc Int : 449 ms Sinus bradycardia Possible Lateral infarct , age undetermined Abnormal ECG When compared with ECG of 11-JUN-2024 05:29, No significant change was found Referred By: Kassy Barnard Electronically Signed By:Asif Zhao
[2024-06-22 18:52] LABS: MANUAL DIFF FLAG NO
[2024-06-22 18:55] LABS: Basophils Absolute Auto 0.1 X10*3/uL (0.0-0.2); Eosinophils Absolute Auto 0.2 X10*3/uL (0.0-0.4); Eosinophils Percent Auto 3.8 % (0-4); Hematocrit 29.1 % (37.0-47.0); Hemoglobin 8.7 g/dl (12.0-16.0); Imm Gran Abs Auto 0.04 X10*3/uL (0.00-0.03); Imm Gran Pct Auto 0.6 % (0.0-0.4); Lymphocytes Absolute Auto 0.9 X10*3/uL (1.2-4.9); Mean Corpuscular HGB Conc 29.9 g/dl (31.0-35.0); Mean Corpuscular Hemoglobin 24.5 pg (27.0-33.0); Mean Platelet Volume 10.1 fL (9.4-12.3); Monocytes Absolute Auto 0.8 X10*3/uL (0.1-1.2); Monocytes Percent Auto 11.9 % (2-11); Neutrophils Absolute Auto 4.3 x10*3/uL (2.0-8.3); Neutrophils Percent Auto 67.7 % (45-73); Platelet Count 169 X10*3/uL (160-400); Red Blood Count 3.55 X10*6/uL (4.20-5.50); Red Cell Distribution Width 15.3 % (11.0-16.0); White Blood Count 6.3 X10*3/uL (4.8-10.8)
[2024-06-22 18:56] LABS: Venous Blood Gas Refer to POC result
[2024-06-22 18:57] LABS: VBG Base Excess 21.2 mmol/L; VBG HCO3 48 mmol/L (22-26); VBG pCO2 72 mmHg; VBG pH 7.43 (7.32-7.43); VBG pO2 59 mmHg
[2024-06-22 19:08] LABS: Glucose, Whole Blood 229 mg/dL (60-115)
[2024-06-22 19:16] LABS: B Type Natriuretic Peptide 184 pg/mL (<100)
[2024-06-22 19:19] LABS: Troponin-I High Sensitivity 8.3 ng/L (<3.5-17.0)
[2024-06-22 19:28] LABS: Lactic Acid 1.5 mmol/L (0.5-2.0)
[2024-06-22] MEDS: 0.9 % Sodium Chloride 1,000 ML 999 ML IV (19:32)
[2024-06-22 19:42] LABS: Alanine Aminotransferase 15 U/L (0-31); Albumin Level 3.1 g/dL (3.5-5.0); Alkaline Phosphatase 69 U/L (39-117); Anion Gap 13 (12-20); Aspartate Amino Transferase 27 U/L (5-31); Bilirubin Direct 0.1 mg/dL (0.0-0.5); Bilirubin Total 0.3 mg/dL (0.0-1.0); Blood Urea Nitrogen 40 mg/dL (9-16); Calcium 8.3 mg/dL (8.4-10.2); Carbon Dioxide 41 mmol/L (22-29); Chloride 88 mmol/L (96-108); Creatinine Clr Calc Pharmacy 31.8; Estimated Glomerular Filt Rate 25; Glucose Random 260 mg/dL (60-115); Potassium 4.7 mmol/L (3.3-5.1); Sodium 137 mmol/L (135-145); Total Protein 6.4 g/dL (6.5-8.0)
[2024-06-22] MEDS: Albumin Human 25 % 100 ML 133.33 ML IV ×2 (19:50→20:46)
[2024-06-22] MEDS: cefEPime HCl/D5W 2 GM/50 ML PIGGYBACK IV (19:51)
[2024-06-22] MEDS: vancomycin/NS 2,000 MG/500 ML PLAST..BAG 250 MG IV (20:07)
--- NOTE | 2024-06-22 20:41 | P.HPHOSP_ITS ---
History of Present Illness Date of Service: 06/22/24 Attending physician on admission: Becky Knight Chief Complaint: Fall at home Pt is a 73-year-old Maltese-speaking female with a PMH significant for?paroxysmal AFib on Eliquis s/p cardioversion 06/2023, CAD, HFpEF, HTN, CKD 3, insulin-dependent type 2 diabetes, asthma, and hypothyroidism who presents to the ED after slipping out of her wheelchair. 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 Family report since discharge patient has been more lethargic and weaker than normal, sleeping most of the day. Today patient apparently slipped out of her wheelchair as she was sitting in it. Family reports catching her and slowly lowering her to the floor. Denies head strike. EMS was called and reported finding her hypoxic, satting at 80% on RA. According to ED provider, patient initially complained of right and left ankle pain. Currently pt is somnolent but arousable, though continually falls back asleep during exam. Denies any acute medical complaints including shortness a breath or difficulty breathing, but HPI and ROS very limited due to patient's somnolence. In the ED pt was hypoxic as low as 79% on RA and with soft BP as low as 102/24. Labs were significant for bicarb 41, BUN 40, creatinine 1.94, BNP 184, and albumin 3.1. No leukocytosis. Stable normocytic anemia 8.7/29.1. VBG with pH 7.43, pCO2 72, and bicarb 48. CXR showed hyperinflation of lungs with linear atelectasis versus early infiltrate in left upper lobe. CT of head negative for acute intracranial hemorrhage or mass effect. Right ankle x-ray showed circumferential soft tissue swelling without acute fracture. Left ankle x-ray showed no acute fracture or dislocation. EKG demonstrated sinus bradycardia of 51 without significant ischemic changes, similar to previous. Pt was treated with IVF, albumin, cefepime, and vancomycin. Pt will be admitted to the hospital for treatment and for MARK and acute hypoxic respiratory failure in the setting of likely hospital-acquired pneumonia. Review of Systems 2 Review of Systems: Negative except for that which is stated in the HPI. Yes Unobtainable due to mental status ON LICENSE OF [facility] Medical History Leg abrasion Abuse of non-prescription analgesics Type 2 diabetes mellitus with unspecified complications Other and unspecified hyperlipidemia Essential hypertension Atherosclerotic cardiovascular disease Urgency incontinence Osteoporosis Arthritis Asthma Hypertension Fibromyalgia Diabetes mellitus Surgical History History of hernia repair Social History Household Members: Family Housing: Apartment Do you presently have visiting nurse or other home services: Yes Unable to assess alcohol history related to: Refusing to respond Alcohol intake: never 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 Patient Tobacco Use Status: Never used Tobacco Advance Directives: Yes Advance Directives on File: Yes Advance Directives Date on File: 04/07/24 service: No Sexual orientation: Straight/Heterosexual Meds Allergies Allergy/AdvReac Type Severity Reaction Status Date / Time codeine [CODEINE] Allergy Intermediate HALLUCINATI Verified 06/22/24 17:18 ONS Active Medications: Current Medications Albumin Human (Kedbumin 25 %) 100 mls @ 133.333 mls/hr IV Q1H JULIANNE Stop: 06/22/24 20:44 Last Admin: 06/22/24 19:50 Dose: 133.33 mls/hr Vancomycin HCl (Vancomycin/Ns) 2,000 mg in 500 mls @ 250 mls/hr IV ONCE ONE Stop: 06/22/24 20:59 Last Admin: 06/22/24 20:07 Dose: 250 mls/hr Home Medications ?Medication ?Instructions ?Recorded ?Confirmed ?Last Taken ?Type insulin glargine 100 unit/mL 65 unit subcut BEDTIME 07/22/20 06/22/24 Unknown History subcutaneous solution (Lantus U-100 Insulin) atorvastatin 80 mg tablet 80 mg PO BEDTIME 04/07/21 06/22/24 10/24/23 20:00 History dapagliflozin propanediol 10 mg 10 mg PO DAILY 10/25/23 06/22/24 04/05/24 History tablet (Farxiga) levothyroxine 50 mcg tablet 50 mcg PO DAILY@0600 11/18/23 06/22/24 04/05/24 History duloxetine 20 mg capsule,delayed 20 mg PO DAILY 03/18/24 06/22/24 04/05/24 History release omeprazole 40 mg capsule,delayed 40 mg PO DAILY@0630 03/18/24 06/22/24 04/05/24 History release triamcinolone acetonide 0.1 % 1 appl topical BID PRN leg pain or 03/18/24 06/22/24 04/05/24 History topical cream swelling insulin syringe-needle U-100 1 mL #10 ea 03/29/24 Unknown History 31 gauge x 16 trazodone 150 mg tablet 150 mg PO BEDTIME 04/06/24 06/22/24 Unknown History acetaminophen 500 mg tablet 1,000 mg PO TID PRN Pain 04/19/24 06/22/24 Unknown History amiodarone 200 mg tablet 200 mg PO DAILY 04/19/24 06/22/24 Unknown History melatonin 5 mg tablet 5 mg PO BEDTIME sleep 04/19/24 06/22/24 Unknown History aspirin 81 mg tablet,delayed 81 mg PO BEDTIME 06/11/24 06/22/24 Unknown History release calcium carbonate 500 mg PO BID 06/11/24 06/22/24 Unknown History clotrimazole 1 % topical cream 1 appl topical BID 06/11/24 06/22/24 Unknown History collagenase clostridium histo. 250 1 appl topical DAILY 06/11/24 06/22/24 Unknown History unit/gram topical ointment (Santyl) gabapentin 100 mg capsule 100 mg PO TID 06/11/24 06/22/24 Unknown History oxycodone-acetaminophen 5 mg-325 1 tab PO Q6H PRN pain 06/11/24 06/22/24 Unknown History mg tablet paroxetine HCl 40 mg tablet 40 mg PO DAILY 06/11/24 06/22/24 Unknown History hydroxyzine HCl 25 mg tablet 25 mg PO TID 06/22/24 06/22/24 Unknown History Physical Exam 2 Vital Signs and Narrative: Vital Signs: Last Vital Signs Temp 99.7 F 06/22/24 18:50 Pulse 53 06/22/24 20:31 Resp 20 06/22/24 20:31 BP 120/59 L 06/22/24 20:31 Pulse Ox 96 06/22/24 20:31 O2 Del Method Nasal Cannula 06/22/24 20:31 O2 Flow Rate 2 06/22/24 20:31 BMI result Body Mass Index 38.9 General: Somnolent but arousable falling back asleep during interview and exam. In no acute distress Resp: CTA bilaterally though exam limited due to patient's somnolence and body habitus CVS: S1, S2, RRR GI: +BS, NT, no distention Skin: Warm, dry Neuro: Cranial nerves II-XII grossly intact bilaterally. Motor grossly intact bilaterally Extremities: No edema Results Labs 06/22/24 18:47 06/22/24 18:47 Labs: Laboratory Results - last 24 hr 06/22/24 06/22/24 06/22/24 18:44 18:45 18:47 VBG pH VBG pCO2 VBG pO2 VBG HCO3 VBG O2 Saturation VBG Base Excess Anion Gap 13 Estim Creat Clear Calc 31.8 Estimated GFR 25 POC Glucose 229 H Random Glucose 260 H Lactic Acid 1.5 Calcium 8.3 L Magnesium 2.0 Total Bilirubin 0.3 Direct Bilirubin 0.1 AST 27 ALT 15 Alkaline Phosphatase 69 Troponin I High Sens 8.3 B-Natriuretic Peptide 184 H Total Protein 6.4 L Albumin 3.1 L 06/22/24 18:52 VBG pH 7.43 VBG pCO2 72 VBG pO2 59 VBG HCO3 48 H VBG O2 Saturation 84.0 VBG Base Excess 21.2 Anion Gap Estim Creat Clear Calc Estimated GFR POC Glucose Random Glucose Lactic Acid Calcium Magnesium Total Bilirubin Direct Bilirubin AST ALT Alkaline Phosphatase Troponin I High Sens B-Natriuretic Peptide Total Protein Albumin Imaging Radiologist's Impressions: Impressions Ankle X-Ray 06/22/24 17:16 IMPRESSION: 1. No acute fracture or dislocation. 2. Mild tibiotalar osteoarthritis. 3. Plantar calcaneal spur. Electronically signed by: Jaziel Guerra MD 06/22/2024 06:55 PM EST RP Ankle X-Ray 06/22/24 17:16 IMPRESSION: 1. Circumferential soft tissue swelling without acute fracture or dislocation. 2. Mild tibiotalar osteoarthritis. 3. Plantar calcaneal spur. Electronically signed by: Jaziel Guerra MD 06/22/2024 06:55 PM EST RP Chest X-Ray 06/22/24 17:17 IMPRESSION: Hypoinflation of the lungs with linear atelectasis versus early infiltrate in the left upper lobe. Electronically signed by: Jaziel Guerra MD 06/22/2024 06:55 PM EST RP Head CT 06/22/24 17:17 IMPRESSION: No acute intracranial hemorrhage or mass effect. Electronically signed by: Jaziel Guerra MD 06/22/2024 06:42 PM EST RP Assessment and Plan (1) MARK (acute kidney injury): Status: Acute (2) Hospital-acquired pneumonia: Status: Acute Plan Acute hypoxic respiratory failure in the setting of hospital-acquired pneumonia Patient hypoxic into the 70s on RA, somnolent, CXR showing possible early left upper lobe infiltrate Patient discharged from this facility 2 days prior after prolonged hospital stay No sepsis: No fever, tachycardia, tachypnea, or leukocytosis; lactic acid WNL Patient is started on broad-spectrum antibiotics in the ED Will treat with cefepime and vancomycin, started 06/22/2024 Will check flu/RSV/COVID Titrate supplemental O2 >92, wean as tolerated Monitor respiratory status MARK on CKD Creatinine 1.94 at time of presentation, elevated from 1.49 at time of discharge; baseline around 1.28 Likely secondary to hypovolemia Received IVF in the ED Follow renal function, gentle fluid resuscitation as necessary HFpEF Not in acute exacerbation Hold torsemide due to MARK Continue BB Monitor volue status Paroxysmal AFib Continue amiodarone, Eliquis HTN BP has been soft, hold amlodipine and metoprolol CAD/HLD Continue aspirin, statin Insulin-dependent type 2 diabetes Sliding-scale insulin, Lantus Diabetic diet Peripheral neuropathy Continue gabapentin Full Code Attending:?Dr. Knight DVT Prophylaxis: On Eliquis Pt will require a hospitalization of at least two nights for treatment of?MARK and acute hypoxic respiratory failure in the setting of likely hospital-acquired pneumonia. She will require hospital level care for administration of supplemental oxygen, IV antibiotics, and close monitoring of labs including kidney function. Quality Stroke Does the patient have a stroke diagnosis?: No VTE Prior VTE?: No VTE Risk Level:: Medical - moderate - high VTE Device Contraindication: Treatment Not Indicated VTE Drug Contraindication: N/A - Med Ordered
[2024-06-22 21:12] LABS: Ammonia 33 umol/L (13-55)
[2024-06-22 22:10] LABS: Appearance Urine Clear; Color Urine Yellow; Glucose Urine UA >=1000 mg/dL (Negative); Leukocyte Esterase Urine Negative (Negative); Nitrite Urine Negative (Negative); UMIC TRIGGER UACC YES; Urine Blood Moderate (2+) (Negative); Urine Ketones Negative (Negative); Urine Protein Negative (Neg-Trace)
[2024-06-22 22:34] LABS: Bacteria Urine None Seen (None Seen); Hyaline Casts Urine 0-2 /LPF (0-2); RBC Urine 0-2 /HPF (0-2); Squamous Epithelial Cell Urine 0-2 /HPF (0-2); WBC Urine 0-5 /HPF (0-5)
--- NOTE | 2024-06-22 22:34 | PHA.MEDREC ---
Addendum entered by Ashlyn Briggs RPh 06/22/24 23:01: Med rec reviewed by formerly [facility]. Original Note: Pharmacy Consult ? Medication Reconciliation Pharmacy has completed the medication reconciliation. Went to speak with patient at 2121 and patient was asleep and I couldn't not wake the patient after calling her name. I went back to speak with her around 2139 and again patient was asleep and even after calling patients name again and with a little tap to try and help patient still was not waking up. Patient was discharged from our facility 06/20 and had Med Rec completed then so I utilized that and confirmed med rec from there. Only thing I noticed was that in claims Glipizide 5mg tabs, Losartan 50mg tabs and Metformin 1000mg tabs were filled all filled 04/13 for 90 days; there was no note on last Pharmacy Consult ? Medication Reconciliation stating weather or not the patient is still taking them or not. Also looking in the discharge packet from 06/20 the patients Hydroxyzine 25mg tab was put on hold and I was not able to confirm weather patient is still taking that or not, I did take it off med rec due to the closeness in dates of discharge and patient being back in our facility.
--- NOTE | 2024-06-22 22:53 | PC.NURSE ---
Patient brought to overflow 5 by generation technologist at 22:50. Patient is somnolent, opens her eyes when called by name, confused. Patient on O2 at 2 LPM NC saturating mid 80's. O2 flow increased to 4 LPM with improvement in O2 Sat noted 93-94%. Patient noted to have an intermittent productive cough noted. Patient is incontinent of urine, purewick applied. Patient informed of NPO status. Currently resting on a hospital bed, bed alarm engaged, call jacome in place.
--- NOTE | 2024-06-22 22:57 | PHA.PROG ---
Admission Date/Time: June 22, 2024 20:56 Indication: Resp Weight in k.2 kg Adjusted body weight in Kg: [place] body weight in Kg: Obesity Dosing Indication % IBW: Serum Creatinine - Last 168 Hours 06/22/24 18:47 Creatinine 1.94 H Estimated CrCl and GFR - Last 168 Hours 06/22/24 18:47 Estim Creat Clear Calc 31.8 Estimated GFR 25 Vancomycin Loading Dose: 2000mg Current Vancomycin Dosing Regimen: 1000mg q24h Vancomycin Monitoring using AUC goal of 400 - 600 range with trough as surrogate marker: 463 mg/L Date and Time for next Vancomycin Level to be drawn:06/24 @1800 Pharmacist Comments on Vancomycin Plan:Start 1g q24h tomorrow, projected trough is 15.7 mg/L Vancomycin dosing will take advantage of [employer] as a clinical decision support tool that uses Bayesian modeling to calculate individual patient's pharmacokinetic parameters and forecast the patient's drug concentration time course with the target goal AUC 24 range of 400 - 600 mg/L/hr.
--- NOTE | 2024-06-22 23:23 | PC.NURSE ---
Dr. Knight informed of increase in O2 flow from 2 LPM to 4 LMP NC d/t O2 Sat noted to be in mid's 80's on arriival to overflow unit.
[2024-06-22] MEDS: 0.9 % Sodium Chloride Flush 3 ML SYRINGE IVFLUSH (23:59)
[2024-06-23] MEDS: 0.9 % Sodium Chloride Flush 3 ML SYRINGE IVFLUSH ×4 (00:41→21:35)
--- NOTE | 2024-06-23 03:37 | PC.NURSE ---
Patient continuing to sleep, not s/s of distress, call jacome within patient's reach.
[2024-06-23 05:40] VITALS: BP 125/57; PULSE 50; RESP 20; TEMP 36.1; O2SAT 94
[2024-06-23 06:55] LABS: MANUAL DIFF FLAG NO
[2024-06-23 07:15] LABS: Basophils Absolute Auto 0.1 X10*3/uL (0.0-0.2); Basophils Percent Auto 0.9 % (0-2); Eosinophils Absolute Auto 0.3 X10*3/uL (0.0-0.4); Eosinophils Percent Auto 5.1 % (0-4); Hematocrit 26.9 % (37.0-47.0); Hemoglobin 7.9 g/dl (12.0-16.0); Imm Gran Abs Auto 0.05 X10*3/uL (0.00-0.03); Imm Gran Pct Auto 0.9 % (0.0-0.4); Lymphocytes Absolute Auto 1.2 X10*3/uL (1.2-4.9); Lymphocytes Percent Auto 21.6 % (20-40); Mean Corpuscular HGB Conc 29.4 g/dl (31.0-35.0); Mean Corpuscular Volume 81.8 fL (80.0-98.0); Mean Platelet Volume 11.2 fL (9.4-12.3); Monocytes Absolute Auto 0.7 X10*3/uL (0.1-1.2); Monocytes Percent Auto 11.9 % (2-11); Neutrophils Absolute Auto 3.3 x10*3/uL (2.0-8.3); Neutrophils Percent Auto 59.6 % (45-73); Platelet Count 154 X10*3/uL (160-400); Red Blood Count 3.29 X10*6/uL (4.20-5.50); Red Cell Distribution Width 15.4 % (11.0-16.0); White Blood Count 5.5 X10*3/uL (4.8-10.8)
[2024-06-23 07:16] LABS: Anion Gap 14 (12-20); Blood Urea Nitrogen 33 mg/dL (9-16); Calcium 7.9 mg/dL (8.4-10.2); Carbon Dioxide 35 mmol/L (22-29); Chloride 95 mmol/L (96-108); Creatinine Clr Calc Pharmacy 41.7; Estimated Glomerular Filt Rate 34; Glucose Random 111 mg/dL (60-115); Potassium 4.9 mmol/L (3.3-5.1); Sodium 139 mmol/L (135-145)
[2024-06-23 07:49] VITALS: BP 148/63; PULSE 54; RESP 18; TEMP 37.1; O2SAT 96
[2024-06-23] MEDS: cefEPime HCl/D5W 2 GM/50 ML PIGGYBACK IV ×2 (08:28→18:38)
[2024-06-23 08:53] LABS: Procalcitonin 0.12 ng/mL
--- NOTE | 2024-06-23 09:27 | PC.NURSE ---
Pt awake, weepy and states he is depressed over his health and physical limits. He reports high anxiety. MD Lombardi aware and upon assessment pt states suicidal ideation, CIRCULATION MANAGER pulled to bedside until a core driller available. Pt supported and consults in.
[2024-06-23] MEDS: Amiodarone HCL 200 MG TABLET PO (11:09)
[2024-06-23] MEDS: Acetaminophen 325 MG TABLET 650 MG PO (11:09)
[2024-06-23] MEDS: Apixaban 5 MG TABLET PO ×2 (11:09→22:05)
--- NOTE | 2024-06-23 11:41 | MHC.CM.PN ---
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
[2024-06-23 12:06] LABS: Glucose, Whole Blood 148 mg/dL (60-115)
--- NOTE | 2024-06-23 12:58 | HO.PM.IMPN ---
Subjective Subjective Date of Service: 06/23/24 Interval History: seen and examined this morning follow up for pneumonia, encephalopathy history obtained with the assistance of a consumer electronic retail specialist patient awake, alert, reporting some pain at left leg no sob Review of Systems Review of Systems: Yes all other systems are reviewed and are negative Constitutional Constitutional: Denies chills and Denies fever(s) Cardiovascular Cardiovascular: Denies chest pain, Denies palpitations and Denies dyspnea Respiratory Respiratory: Denies dyspnea Gastrointestinal Gastrointestinal: Denies abdominal pain, Denies nausea and Denies vomiting Endocrine Endocrine: Denies palpitations Physical Exam Vital Signs: Vital Signs: Last Vital Signs Temp 98.8 F 06/23/24 07:49 Pulse 54 06/23/24 07:49 Resp 18 06/23/24 07:49 BP 148/63 H 06/23/24 07:49 Pulse Ox 96 06/23/24 07:49 O2 Del Method Room Air 06/23/24 07:49 O2 Flow Rate 4 06/23/24 05:40 BMI result Body Mass Index 38.9 Const: General: comfortable, no acute distress, alert and awake Nutritional Appearance: obese Resp: Other: diminished, no wheeze, no rales Effort & Inspection: normal respiratory effort, able to speak in complete sentences, no respiratory distress and no use of accessory muscles Cardio: Rate: regular rate GI: Inspection: No distended Palpation (GI): Soft to palpation and nontender Skin: Other: left anterior shay Neuro: General: moves all extremities and CN's II-XI intact bilaterally Extrem: General: Yes no pedal edema Objective Data Active Medications Acetaminophen (Acetaminophen 325 Mg Tablet) 650 mg PO Q6H PRN PRN Reason: Pain, Mild (Pain Scale 1-3), fever or headache Last Admin: 06/23/24 11:09 Dose: 650 mg Documented By: JAYME Amiodarone HCl (Amiodarone Hcl 200 Mg Tablet) 200 mg PO DAILY [facility] Last Admin: 06/23/24 11:09 Dose: 200 mg Documented By: JAYME Apixaban (Apixaban 5 Mg Tablet) 5 mg PO BID [facility] Last Admin: 06/23/24 11:09 Dose: 5 mg Documented By: JAYME Aspirin (Aspirin Enteric Coated 81 Mg Tablet.Dr) 81 mg PO BEDTIME [facility] Calcium Carbonate (Calcium Carbonate 750 Mg Tab.Chew) 750 mg PO Q4H PRN PRN Reason: Heartburn Collagenase (Collagenase Clostridium Hist. 30 Gm Tube) 1 appl TOPICAL DAILY [facility]; Protocol Cefepime HCl (Maxipime) 2 gm in 50 mls @ 100 mls/hr IV Q12H [facility] Last Infusion: 06/23/24 09:00 Dose: Infused Documented By: JAYME Vancomycin HCl 1,000 mg/ (Sodium Chloride) 270 mls @ 270 mls/hr IV Q24H [facility] Levothyroxine Sodium (Levothyroxine Sodium 50 Mcg Tablet) 50 mcg PO DAILY@0600 [facility] Magnesium Hydroxide (Milk Of Magnesia 30 Ml Oral.Susp) 30 ml PO DAILY PRN PRN Reason: Constipation Melatonin (Melatonin 3 Mg Tablet) 6 mg PO BEDTIME PRN PRN Reason: Insomnia Nystatin (Nystatin Powder 15 Gm Bottle) 1 appl TOPICAL BID [facility]; Protocol Omeprazole (Omeprazole 40 Mg Capsule.Dr) 40 mg PO DAILY@0630 [facility] Ondansetron HCl (Ondansetron Hcl 4 Mg/2 Ml Vial) 4 mg IVPUSH Q8H PRN PRN Reason: Nausea and Vomiting Pharmacy Consult (Consult Rx Vancomycin Dosing) 1 each MISCELLANE DAILY PRN PRN Reason: Consult order Sodium Chloride (0.9 % Sodium Chloride Flush 3 Ml Syringe) 3 ml IVFLUSH QSHIFT [facility] Last Admin: 06/23/24 08:30 Dose: 3 ml Documented By: JAYME Labs 06/23/24 06:41 06/23/24 06:41 Labs: Laboratory Results - last 24 hr 06/22/24 06/22/24 06/22/24 18:44 18:45 18:47 MCV 82.0 MCH 24.5 L MCHC 29.9 L RDW 15.3 Plt Count 169 D MPV 10.1 Immature Gran % (Auto) 0.6 H Neut % (Auto) 67.7 Lymph % (Auto) 15.0 L Bee % (Auto) 11.9 H Eos % (Auto) 3.8 Baso % (Auto) 1.0 Lymph # (Auto) 0.9 L Bee # (Auto) 0.8 Eos # (Auto) 0.2 Baso # (Auto) 0.1 Abs Immat Gran (auto) 0.04 H Absolute Neuts (auto) 4.3 Absolute Nucleated RBC 0.000 Nucleated RBC % (auto) 0.0 VBG pH VBG pCO2 VBG pO2 VBG HCO3 VBG O2 Saturation VBG Base Excess Anion Gap 13 Estim Creat Clear Calc 31.8 Estimated GFR 25 POC Glucose 229 H Random Glucose 260 H Lactic Acid 1.5 Calcium 8.3 L Magnesium 2.0 Total Bilirubin 0.3 Direct Bilirubin 0.1 AST 27 ALT 15 Alkaline Phosphatase 69 Ammonia Troponin I High Sens 8.3 B-Natriuretic Peptide 184 H Total Protein 6.4 L Albumin 3.1 L Procalcitonin TSH Urine Color Urine Appearance Urine pH Ur Specific [place] Urine Protein Urine Glucose (UA) Urine Ketones Urine Blood Urine Nitrite Ur Leukocyte Esterase Urine RBC Urine WBC Ur Squamous Epith Cells Urine Bacteria Hyaline Casts 06/22/24 06/22/24 06/22/24 18:52 20:58 21:55 MCV MCH MCHC RDW Plt Count MPV Immature Gran % (Auto) Neut % (Auto) Lymph % (Auto) Bee % (Auto) Eos % (Auto) Baso % (Auto) Lymph # (Auto) Bee # (Auto) Eos # (Auto) Baso # (Auto) Abs Immat Gran (auto) Absolute Neuts (auto) Absolute Nucleated RBC Nucleated RBC % (auto) VBG pH 7.43 VBG pCO2 72 VBG pO2 59 VBG HCO3 48 H VBG O2 Saturation 84.0 VBG Base Excess 21.2 Anion Gap Estim Creat Clear Calc Estimated GFR POC Glucose Random Glucose Lactic Acid Calcium Magnesium Total Bilirubin Direct Bilirubin AST ALT Alkaline Phosphatase Ammonia 33 Troponin I High Sens B-Natriuretic Peptide Total Protein Albumin Procalcitonin TSH Urine Color Yellow Urine Appearance Clear Urine pH 6.0 Ur Specific [place] 1.010 Urine Protein Negative Urine Glucose (UA) >=1000 H Urine Ketones Negative Urine Blood Moderate (2+) H Urine Nitrite Negative Ur Leukocyte Esterase Negative Urine RBC 0-2 Urine WBC 0-5 Ur Squamous Epith Cells 0-2 Urine Bacteria None Seen Hyaline Casts 0-2 06/23/24 06/23/24 06:41 12:03 MCV 81.8 MCH 24.0 L MCHC 29.4 L RDW 15.4 Plt Count 154 L MPV 11.2 Immature Gran % (Auto) 0.9 H Neut % (Auto) 59.6 Lymph % (Auto) 21.6 Bee % (Auto) 11.9 H Eos % (Auto) 5.1 H Baso % (Auto) 0.9 Lymph # (Auto) 1.2 Bee # (Auto) 0.7 Eos # (Auto) 0.3 Baso # (Auto) 0.1 Abs Immat Gran (auto) 0.05 H Absolute Neuts (auto) 3.3 Absolute Nucleated RBC 0.000 Nucleated RBC % (auto) 0.0 VBG pH VBG pCO2 VBG pO2 VBG HCO3 VBG O2 Saturation VBG Base Excess Anion Gap 14 Estim Creat Clear Calc 41.7 Estimated GFR 34 POC Glucose 148 H Random Glucose 111 Lactic Acid Calcium 7.9 L Magnesium Total Bilirubin Direct Bilirubin AST ALT Alkaline Phosphatase Ammonia Troponin I High Sens B-Natriuretic Peptide Total Protein Albumin Procalcitonin 0.12 TSH Cancelled Urine Color Urine Appearance Urine pH Ur Specific [place] Urine Protein Urine Glucose (UA) Urine Ketones Urine Blood Urine Nitrite Ur Leukocyte Esterase Urine RBC Urine WBC Ur Squamous Epith Cells Urine Bacteria Hyaline Casts Assessment and Plan (1) MARK (acute kidney injury): Status: Acute (2) Left upper lobe pneumonia: Status: Acute Plan Pt is a 73-year-old female with a PMH significant for?paroxysmal AFib on Eliquis s/p cardioversion 06/2023, CAD, HFpEF, HTN, CKD 3, insulin-dependent type 2 diabetes, asthma, and hypothyroidism who presented with hypoxia and confusion found to have probable pneumonia Acute hypoxic respiratory failure in the setting of probable hospital-acquired pneumonia recent hospitalization. No sepsis: No fever, tachycardia, tachypnea, or leukocytosis; lactic acid WNL cefepime and vancomycin, started 06/22/2024 procalcitonin on lower side, check RPP Titrate supplemental O2 >92, wean as tolerated Monitor respiratory status blood cultures pending MARK on CKD Creatinine 1.94 at time of presentation, elevated from 1.49 at time of discharge Likely secondary to hypovolemia Received IVF in the ED creatinine improved to 1.48 torsemide on hold Chronic normocytic anemia H/H similar to previous no evidence of acute blood loss ? due to CKD will check iron profile, B12, folate follow CBC - if drops further will transfuse 1 unit Acute Toxic metabolic encephalopathy likely due to above pneumonia, MARK, hypoxia ammonia ok brain CT negative improving, awake, alert today gabapentin, trazodone on hold to prevent over-sedation; resume as appropriate HFpEF Not in acute exacerbation Hold torsemide due to MARK Continue BB Monitor volume status Paroxysmal AFib HR low hold metoprolol Continue amiodarone, Hellen HTN BP has been soft, hold amlodipine and metoprolol CAD/HLD Continue aspirin hold statin for now Insulin-dependent type 2 diabetes Sliding-scale insulin, Lantus - dose adjusted 30U (baseline 65, [id number] last admission) titrate prn hold Farxiga Diabetic diet Peripheral neuropathy hold gabapentin ?chronic pain resume baseline oxycodone monitor for sedation Mood resume paxil and cymbalta hydroxyzine on hold to prevent sedation ANILA unclear if uses cpap at baseline - will discuss with family CPAP Full Code DVT Prophylaxis: Hellen Requires ongoing inpatient stay for management ?MARK and acute hypoxic respiratory failure in the setting of likely hospital-acquired pneumonia. She will require hospital level care for administration of supplemental oxygen, IV antibiotics, and close monitoring of labs including kidney function. Quality Stroke Does the patient have a stroke diagnosis?: No VTE Prior VTE?: No VTE Risk Level:: Medical - moderate - high VTE Device Contraindication: Treatment Not Indicated VTE Drug Contraindication: N/A - Med Ordered
[2024-06-23] MEDS: Nystatin Powder 15 GM BOTTLE 1 APPL TOPICAL (13:39)
--- NOTE | 2024-06-23 13:39 | PC.NURSE ---
nystatin powder applied under bilat breasts and abd folds. areas clean and dry
[2024-06-23 16:06] VITALS: BP 129/86; PULSE 68; RESP 16; TEMP 37.4; O2SAT 97
[2024-06-23 16:33] LABS: Glucose, Whole Blood 247 mg/dL (60-115)
[2024-06-23] MEDS: Insulin Lispro 100 UNIT/ML 3 ML VIAL SUBCUT ×2 (16:53→22:11)
[2024-06-23 19:30] VITALS: BP 160/72; PULSE 56; RESP 16; TEMP 37.6; O2SAT 97
--- NOTE | 2024-06-23 20:27 | PC.NURSE ---
COVID-19 Augustin swab ordered. Plan for admission to room 383. Report given by Lilli Vega RN to Joseline Blackman RN. Transfer/admission to med/surg unit pending COVID status.
[2024-06-23 21:10] LABS: COVID-19 Test Negative (Negative); IDNOW Serial# 08D9AD1C
[2024-06-23 21:34] VITALS: BP 130/79; PULSE 57; RESP 18; TEMP 36.3; O2SAT 97
[2024-06-23 21:42] LABS: Glucose, Whole Blood 216 mg/dL (60-115)
[2024-06-23] MEDS: vancomycin HCL 1,000 MG in 0.9 % Sodium Chloride 250 ML 270 MG IV (21:43)
[2024-06-23] MEDS: Insulin Glargine,Hum.rec.anlog 100 UNIT/ML 10 ML VIAL 30 UNIT SUBCUT (22:06)
[2024-06-23] MEDS: Aspirin Enteric Coated 81 MG TABLET.DR PO (22:06)
[2024-06-23] MEDS: Flu Vacc TS2024-25(6mos up)/PF 0.5 ML SYRINGE IM (22:14)
[2024-06-23] MEDS: Melatonin 3 MG TABLET 6 MG PO (22:24)
[2024-06-23] MEDS: oxyCODONE HCl Immed Release 5 MG TABLET PO (22:24)
[2024-06-24] VITALS (7 sets, daily range): BP systolic 107–170; BP diastolic 52–70; PULSE 53–62; RESP 18–20; TEMP 36.3–36.4; O2SAT 93–97; BMI 38.6
[2024-06-24] MEDS: LORazepam 0.5 MG TABLET PO (01:02)
--- NOTE | 2024-06-24 01:04 | MHC.PIE ---
p; pt woke up c/o anxiety and insomnia. note; prn melatonin at 2223 i; dr juárez notified. new order ativan po now e; will cont to [facility]
[2024-06-24] MEDS: Levothyroxine Sodium 50 MCG TABLET PO (05:28)
[2024-06-24] MEDS: Omeprazole 40 MG CAPSULE.DR PO (05:28)
[2024-06-24] MEDS: oxyCODONE HCl Immed Release 5 MG TABLET PO ×2 (05:28→18:17)
[2024-06-24] MEDS: cefEPime HCl/D5W 2 GM/50 ML PIGGYBACK IV (06:18)
[2024-06-24 07:37] LABS: Hematocrit 26.9 % (37.0-47.0); Hemoglobin 7.8 g/dl (12.0-16.0); Mean Corpuscular Hemoglobin 24.1 pg (27.0-33.0); Mean Corpuscular Volume 83.3 fL (80.0-98.0); Mean Platelet Volume 11.8 fL (9.4-12.3); Platelet Count 177 X10*3/uL (160-400); Red Blood Count 3.23 X10*6/uL (4.20-5.50); Red Cell Distribution Width 15.6 % (11.0-16.0); White Blood Count 4.2 X10*3/uL (4.8-10.8)
[2024-06-24 07:43] LABS: Glucose, Whole Blood 182 mg/dL (60-115)
[2024-06-24 08:10] LABS: Anion Gap 13 (12-20); Blood Urea Nitrogen 35 mg/dL (9-16); Calcium 8.5 mg/dL (8.4-10.2); Carbon Dioxide 37 mmol/L (22-29); Chloride 96 mmol/L (96-108); Creatinine Clr Calc Pharmacy 36.6; Estimated Glomerular Filt Rate 30; Glucose Random 215 mg/dL (60-115); Iron 26 mcg/dL (30-160); Percent Iron Saturation 10 % (15-50); Potassium 4.1 mmol/L (3.3-5.1); Sodium 142 mmol/L (135-145); Total Iron Binding Capacity 263 mcg/dL (228-428); Unsaturated Iron Binding 237 ug/dL
[2024-06-24 08:46] LABS: Folate 11.9 ng/mL (> or = 4.0); Vitamin B12 378 pg/mL (200-900)
[2024-06-24] MEDS: PARoxetine HCL 40 MG TABLET PO (09:27)
[2024-06-24] MEDS: Apixaban 5 MG TABLET PO ×2 (09:27→21:01)
[2024-06-24] MEDS: 0.9 % Sodium Chloride Flush 3 ML SYRINGE IVFLUSH ×3 (09:27→21:05)
[2024-06-24] MEDS: Insulin Lispro 100 UNIT/ML 3 ML VIAL SUBCUT ×4 (09:28→21:01)
[2024-06-24] MEDS: Amiodarone HCL 200 MG TABLET PO (09:28)
[2024-06-24] MEDS: DULoxetine HCl 20 MG CAPSULE.DR PO (09:28)
[2024-06-24 09:43] LABS: Adenovirus PCR Not Detected (Not Detect.); Bordetella parapertussis PCR Not Detected (Not Detect.); Bordetella pertussis PCR Not Detected (Not Detect.); Chlamydia pneumoniae PCR Not Detected (Not Detect.); Coronavirus 229E PCR Not Detected (Not Detect.); Coronavirus HKU1 PCR Not Detected (Not Detect.); Coronavirus NL63 PCR Not Detected (Not Detect.); Coronavirus OC43 PCR Not Detected (Not Detect.); Human metapneumovirus PCR Detected (Not Detect.); Influenza A PCR Not Detected (Not Detect.); Influenza B PCR Not Detected (Not Detect.); Mycoplasma pneumoniae PCR Not Detected (Not Detect.); Parainfluenza 1 PCR Not Detected (Not Detect.); Parainfluenza 2 PCR Not Detected (Not Detect.); Parainfluenza 3 PCR Not Detected (Not Detect.); Parainfluenza 4 PCR Not Detected (Not Detect.); RSV PCR Not Detected (Not Detect.); Rhino/Enterovirus PCR Not Detected (Not Detect.)
[2024-06-24 09:50] LABS: Glucose, Whole Blood 217 mg/dL (60-115)
[2024-06-24 09:58] LABS: SARS-CoV-2 PCR Not Detected (Not Detect.)
[2024-06-24 11:59] LABS: Glucose, Whole Blood 196 mg/dL (60-115)
[2024-06-24] MEDS: Nystatin Powder 15 GM BOTTLE 1 APPL TOPICAL ×2 (12:43→21:06)
--- NOTE | 2024-06-24 13:07 | P.CONOP_ITS ---
History of Present Illness HPI Consult date: 06/24/24 Chief complaint: AMS Narrative: Patient is a 73-year-old female currently admitted to the hospital When previously admitted to the hospital, MRI of left knee on 06/19/2024 revealed questionable tibial plateau fracture, however no follow-up imaging was obtained X-rays taken yesterday did reveal nondisplaced tibial plateau fracture of the left knee The patient states that she did have 2 separate falls, 1 at home, and once while with EMS or in the emergency department, but the patient was unable to recall the dates of these or the exact locations. Today, patient reports that she is experiencing pain in her left knee, but that it is improving Patient reports that this knee pain has made it difficult for her to bear weight Patient reports normal sensation in the distal aspect of the left lower extremity No other acute complaints or concerns at this time. Review of Systems 2 Review of Systems: Yes all other systems are reviewed and are negative PMFSH Past Medical History Medical History Leg abrasion Abuse of non-prescription analgesics Type 2 diabetes mellitus with unspecified complications Other and unspecified hyperlipidemia Essential hypertension Atherosclerotic cardiovascular disease Urgency incontinence Osteoporosis Arthritis Asthma Hypertension Fibromyalgia Diabetes mellitus Surgical History Surgical History History of hernia repair Social History Social History Household Members: Other Household Members Other:: friend Housing: Apartment Do you presently have visiting nurse or other home services: Yes Unable to assess alcohol history related to: Refusing to respond Alcohol intake: never 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 Patient Tobacco Use Status: Never used Tobacco Advance Directives Date on File: 04/07/24 service: No Sexual orientation: Straight/Heterosexual Meds Allergies Allergy/AdvReac Type Severity Reaction Status Date / Time codeine [CODEINE] Allergy Intermediate HALLUCINATI Verified 06/22/24 17:18 ONS Active Medications: Current Medications Acetaminophen (Acetaminophen 325 Mg Tablet) 650 mg PO Q6H PRN PRN Reason: Pain, Mild (Pain Scale 1-3), fever or headache Last Admin: 06/23/24 11:09 Dose: 650 mg Amiodarone HCl (Amiodarone Hcl 200 Mg Tablet) 200 mg PO DAILY JULIANNE Last Admin: 06/24/24 09:28 Dose: 200 mg Apixaban (Apixaban 5 Mg Tablet) 5 mg PO BID [facility] Last Admin: 06/24/24 09:27 Dose: 5 mg Aspirin (Aspirin Enteric Coated 81 Mg Tablet.) 81 mg PO BEDTIME [facility] Last Admin: 06/23/24 22:06 Dose: 81 mg Calcium Carbonate (Calcium Carbonate 750 Mg Tab.Chew) 750 mg PO Q4H PRN PRN Reason: Heartburn Duloxetine HCl (Duloxetine Hcl 20 Mg Capsule.) 20 mg PO DAILY [facility] Last Admin: 06/24/24 09:28 Dose: 20 mg Glucose (Glucose Gel 15 Gm Gel..Gram.) 15 gm PO Q15M PRN; Protocol PRN Reason: per Hypoglycemia Standing Ord. Cefepime HCl (Maxipime) 2 gm in 50 mls @ 100 mls/hr IV Q12H [facility] Last Infusion: 06/24/24 06:55 Dose: Infused Vancomycin HCl 1,000 mg/ (Sodium Chloride) 270 mls @ 270 mls/hr IV Q24H [facility] Last Infusion: 06/23/24 22:52 Dose: Infused Dextrose (D10) 250 mls @ 750 mls/hr IV Q15M PRN; Protocol PRN Reason: per Hypoglycemia Standing Ord. Insulin Glargine (Insulin Glargine,Hum.Rec.Anlog 100 Unit/Ml 10 Ml Vial) 30 unit SUBCUT BEDTIME [facility] Last Admin: 06/23/24 22:06 Dose: 30 unit Insulin Human Lispro (Insulin Lispro 100 Unit/Ml 3 Ml Vial) 0 unit SUBCUT QIDACHS [facility]; Protocol Last Admin: 06/24/24 12:42 Dose: 2 unit Levothyroxine Sodium (Levothyroxine Sodium 50 Mcg Tablet) 50 mcg PO DAILY@0600 [facility] Last Admin: 06/24/24 05:28 Dose: 50 mcg Magnesium Hydroxide (Milk Of Magnesia 30 Ml Oral.Susp) 30 ml PO DAILY PRN PRN Reason: Constipation Nystatin (Nystatin Powder 15 Gm Bottle) 1 appl TOPICAL BID [facility]; Protocol Last Admin: 06/24/24 12:43 Dose: 1 appl Omeprazole (Omeprazole 40 Mg Capsule.) 40 mg PO DAILY@0630 [facility] Last Admin: 06/24/24 05:28 Dose: 40 mg Ondansetron HCl (Ondansetron Hcl 4 Mg/2 Ml Vial) 4 mg IVPUSH Q8H PRN PRN Reason: Nausea and Vomiting Oxycodone HCl (Oxycodone Hcl Immed Release 5 Mg Tablet) 5 mg PO Q6H PRN PRN Reason: Pain, Moderate(Pain Scale 4-6) Last Admin: 06/24/24 05:28 Dose: 5 mg Paroxetine HCl (Paroxetine Hcl 40 Mg Tablet) 40 mg PO DAILY [facility] Last Admin: 06/24/24 09:27 Dose: 40 mg Pharmacy Consult (Consult Rx Vancomycin Dosing) 1 each MISCELLANE DAILY PRN PRN Reason: Consult order Sodium Chloride (0.9 % Sodium Chloride Flush 3 Ml Syringe) 3 ml IVFLUSH QSHIFT [facility] Last Admin: 06/24/24 09:27 Dose: 3 ml Home Medications ?Medication ?Instructions ?Recorded ?Confirmed ?Last Taken ?Type insulin glargine 100 unit/mL 65 unit subcut BEDTIME 07/22/20 06/22/24 Unknown History subcutaneous solution (Lantus U-100 Insulin) atorvastatin 80 mg tablet 80 mg PO BEDTIME 04/07/21 06/22/24 10/24/23 20:00 History dapagliflozin propanediol 10 mg 10 mg PO DAILY 10/25/23 06/22/24 04/05/24 History tablet (Farxiga) levothyroxine 50 mcg tablet 50 mcg PO DAILY@0600 11/18/23 06/22/24 04/05/24 History duloxetine 20 mg capsule,delayed 20 mg PO DAILY 03/18/24 06/22/24 04/05/24 History release omeprazole 40 mg capsule,delayed 40 mg PO DAILY@0630 03/18/24 06/22/24 04/05/24 History release triamcinolone acetonide 0.1 % 1 appl topical BID PRN leg pain or 03/18/24 06/22/24 04/05/24 History topical cream swelling insulin syringe-needle U-100 1 mL #10 ea 03/29/24 Unknown History 31 gauge x 12/22 trazodone 150 mg tablet 150 mg PO BEDTIME 04/06/24 06/22/24 Unknown History acetaminophen 500 mg tablet 1,000 mg PO TID PRN Pain 04/19/24 06/22/24 Unknown History amiodarone 200 mg tablet 200 mg PO DAILY 04/19/24 06/22/24 Unknown History melatonin 5 mg tablet 5 mg PO BEDTIME sleep 04/19/24 06/22/24 Unknown History aspirin 81 mg tablet,delayed 81 mg PO BEDTIME 06/11/24 06/22/24 Unknown History release calcium carbonate 500 mg PO BID 06/11/24 06/22/24 Unknown History clotrimazole 1 % topical cream 1 appl topical BID 06/11/24 06/22/24 Unknown History collagenase clostridium histo. 250 1 appl topical DAILY 06/11/24 06/22/24 Unknown History unit/gram topical ointment (Santyl) gabapentin 100 mg capsule 100 mg PO TID 06/11/24 06/22/24 Unknown History oxycodone-acetaminophen 5 mg-325 1 tab PO Q6H PRN pain 06/11/24 06/22/24 Unknown History mg tablet paroxetine HCl 40 mg tablet 40 mg PO DAILY 06/11/24 06/22/24 Unknown History hydroxyzine HCl 25 mg tablet 25 mg PO TID 06/22/24 06/22/24 Unknown History Physical Exam 2 Vital Signs: Vital Signs: Last Vital Signs Temp 97.4 F 06/24/24 07:40 Pulse 53 06/24/24 11:20 Resp 18 06/24/24 07:40 BP 137/62 06/24/24 11:20 Pulse Ox 96 06/24/24 07:40 O2 Del Method Nasal Cannula 06/24/24 07:40 O2 Flow Rate 2 06/24/24 07:40 BMI result Body Mass Index 38.6 Extrem: Other: Patient's R knee slightly edematous to inspection No erythema, ecchymosis No lacerations, abrasions, open areas No evidence of infection Patient reports tenderness to palpation of the anterior aspect of the left knee, particularly over the tibial plateau Patient is able to extend the left knee fully, and is able to flex to approximately 90 degrees Distal sensation intact Capillary refill brisk Results Labs 06/24/24 06:40 06/24/24 06:40 Labs: Abnormal lab results 06/23/24 06/23/24 06/23/24 Range/Units 14:45 16:26 20:56 WBC (4.8-10.8) X10*3/uL RBC (4.20-5.50) X10*6/uL Hgb (12.0-16.0) g/dl Hct (37.0-47.0) % MCH (27.0-33.0) pg MCHC (31.0-35.0) g/dl Carbon Dioxide (22-29) mmol/L BUN (9-16) mg/dL Creatinine (0.5-1.4) mg/dL POC Glucose 247 H 217 H (60-115) mg/dL Random Glucose (60-115) mg/dL Iron (30-160) mcg/dL % Saturation (15-50) % Human Metapneumovir PCR Detected A (Not Detect.) Crossmatch 06/23/24 06/24/24 06/24/24 Range/Units 21:38 06:40 07:37 WBC 4.2 L (4.8-10.8) X10*3/uL RBC 3.23 L (4.20-5.50) X10*6/uL Hgb 7.8 L (12.0-16.0) g/dl Hct 26.9 L (37.0-47.0) % MCH 24.1 L (27.0-33.0) pg MCHC 29.0 L (31.0-35.0) g/dl Carbon Dioxide 37 H (22-29) mmol/L BUN 35 H (9-16) mg/dL Creatinine 1.68 H (0.5-1.4) mg/dL POC Glucose 216 H 182 H (60-115) mg/dL Random Glucose 215 H (60-115) mg/dL Iron 26 L (30-160) mcg/dL % Saturation 10 L (15-50) % Human Metapneumovir PCR (Not Detect.) Crossmatch 06/24/24 06/24/24 Range/Units 09:03 11:07 WBC (4.8-10.8) X10*3/uL RBC (4.20-5.50) X10*6/uL Hgb (12.0-16.0) g/dl Hct (37.0-47.0) % MCH (27.0-33.0) pg MCHC (31.0-35.0) g/dl Carbon Dioxide (22-29) mmol/L BUN (9-16) mg/dL Creatinine (0.5-1.4) mg/dL POC Glucose 196 H (60-115) mg/dL Random Glucose (60-115) mg/dL Iron (30-160) mcg/dL % Saturation (15-50) % Human Metapneumovir PCR (Not Detect.) Crossmatch See Detail H & H 06/22/24 06/23/24 06/24/24 Range/Units 18:47 06:41 06:40 Hgb 8.7 L 7.9 L 7.8 L (12.0-16.0) g/dl Hct 29.1 L 26.9 L 26.9 L (37.0-47.0) % All other labs normal. Diagnostic results Knee x-ray: report reviewed and image reviewed (X-rays obtained on 06/23/2024 and independently reviewed by me, Jerman Traylor PA-C, demonstrate nondisplaced fracture of the left tibial plateau. ) Assessment and Plan (1) Closed nondisplaced fracture of left tibial plateau: Status: Acute Plan 1. Nondisplaced left tibial plateau fracture Date of injury unknown, occurred approximately 1-2 weeks ago Patient is educated about this injury in the treatment options available This time, patient is informed that there is no surgery indicated for her fracture Patient is also informed that she will need to be totally nonweightbearing on the left lower extremity for 6 weeks after her injury to prevent displacement Patient states understanding of this Patient can have physical therapy for gentle range of motion of the left knee, however again she must be completely nonweightbearing Patient is amenable to this plan No acute orthopedic intervention indicated at this time Patient may follow-up with our office when discharged for follow-up assessment and further evaluation at that time Continue with all other recommendations per Medicine Procedures Date of Service Date of Service: 06/24/24
--- NOTE | 2024-06-24 13:31 | HO.SKINPHOTO ---
Left great toe adhered eschar no drainage [employer]. wound care nurse consult updated.
--- NOTE | 2024-06-24 13:41 | P.PNIM_ITS ---
Subjective Subjective Date of Service: 06/24/24 Interval History: Seen and examined this morning Follow-up for pneumonia History obtained with the assistance of a parts interpreter Patient is awake, alert and answering all questions appropriately. Denies shortness of breath. No specific complaints Discussed blood transfusion- patient declines Review of Systems Review of Systems: Yes all other systems are reviewed and are negative Constitutional Constitutional: Denies chills and Denies fever(s) Cardiovascular Cardiovascular: Denies chest pain and Denies palpitations Gastrointestinal Gastrointestinal: Denies abdominal pain Endocrine Endocrine: Denies palpitations Physical Exam 2 Vital Signs: Vital Signs: Last Vital Signs Temp 97.4 F 06/24/24 07:40 Pulse 53 06/24/24 11:20 Resp 18 06/24/24 07:40 BP 137/62 06/24/24 11:20 Pulse Ox 96 06/24/24 07:40 O2 Del Method Nasal Cannula 06/24/24 07:40 O2 Flow Rate 2 06/24/24 07:40 BMI result Body Mass Index 38.6 Const: General: comfortable, no acute distress, alert and awake Nutritional Appearance: obese Resp: Other: diminished, no wheeze, no rales Effort & Inspection: normal respiratory effort, able to speak in complete sentences, no respiratory distress and no use of accessory muscles Cardio: Rate: regular rate GI: Inspection: No distended Palpation (GI): Soft to palpation and nontender Neuro: General: moves all extremities and CN's II-XI intact bilaterally Extrem: General: Yes no pedal edema Objective Data Active Medications Acetaminophen (Acetaminophen 325 Mg Tablet) 650 mg PO Q6H PRN PRN Reason: Pain, Mild (Pain Scale 1-3), fever or headache Last Admin: 06/23/24 11:09 Dose: 650 mg Documented By: JAYME Amiodarone HCl (Amiodarone Hcl 200 Mg Tablet) 200 mg PO DAILY [facility] Last Admin: 06/24/24 09:28 Dose: 200 mg Documented By: STEFANI Apixaban (Apixaban 5 Mg Tablet) 5 mg PO BID [facility] Last Admin: 06/24/24 09:27 Dose: 5 mg Documented By: STEFANI Aspirin (Aspirin Enteric Coated 81 Mg Tablet.) 81 mg PO BEDTIME [facility] Last Admin: 06/23/24 22:06 Dose: 81 mg Documented By: MIS Calcium Carbonate (Calcium Carbonate 750 Mg Tab.Chew) 750 mg PO Q4H PRN PRN Reason: Heartburn Duloxetine HCl (Duloxetine Hcl 20 Mg Capsule.) 20 mg PO DAILY [facility] Last Admin: 06/24/24 09:28 Dose: 20 mg Documented By: STEFANI Glucose (Glucose Gel 15 Gm Gel..Gram.) 15 gm PO Q15M PRN; Protocol PRN Reason: per Hypoglycemia Standing Ord. Cefepime HCl (Maxipime) 2 gm in 50 mls @ 100 mls/hr IV Q12H [facility] Last Infusion: 06/24/24 06:55 Dose: Infused Documented By: MIS Vancomycin HCl 1,000 mg/ (Sodium Chloride) 270 mls @ 270 mls/hr IV Q24H [facility] Last Infusion: 06/23/24 22:52 Dose: Infused Documented By: MIS Dextrose (D10) 250 mls @ 750 mls/hr IV Q15M PRN; Protocol PRN Reason: per Hypoglycemia Standing Ord. Insulin Glargine (Insulin Glargine,Hum.Rec.Anlog 100 Unit/Ml 10 Ml Vial) 30 unit SUBCUT BEDTIME [facility] Last Admin: 06/23/24 22:06 Dose: 30 unit Documented By: MIS Insulin Human Lispro (Insulin Lispro 100 Unit/Ml 3 Ml Vial) 0 unit SUBCUT QIDACHS [facility]; Protocol Last Admin: 06/24/24 12:42 Dose: 2 unit Documented By: STEFANI Levothyroxine Sodium (Levothyroxine Sodium 50 Mcg Tablet) 50 mcg PO DAILY@0600 [facility] Last Admin: 06/24/24 05:28 Dose: 50 mcg Documented By: MIS Magnesium Hydroxide (Milk Of Magnesia 30 Ml Oral.Susp) 30 ml PO DAILY PRN PRN Reason: Constipation Nystatin (Nystatin Powder 15 Gm Bottle) 1 appl TOPICAL BID [facility]; Protocol Last Admin: 06/24/24 12:43 Dose: 1 appl Documented By: STEFANI Omeprazole (Omeprazole 40 Mg Capsule.) 40 mg PO DAILY@0630 [facility] Last Admin: 06/24/24 05:28 Dose: 40 mg Documented By: MIS Ondansetron HCl (Ondansetron Hcl 4 Mg/2 Ml Vial) 4 mg IVPUSH Q8H PRN PRN Reason: Nausea and Vomiting Oxycodone HCl (Oxycodone Hcl Immed Release 5 Mg Tablet) 5 mg PO Q6H PRN PRN Reason: Pain, Moderate(Pain Scale 4-6) Last Admin: 06/24/24 05:28 Dose: 5 mg Documented By: MIS Paroxetine HCl (Paroxetine Hcl 40 Mg Tablet) 40 mg PO DAILY [facility] Last Admin: 06/24/24 09:27 Dose: 40 mg Documented By: STEFANI Pharmacy Consult (Consult Rx Vancomycin Dosing) 1 each MISCELLANE DAILY PRN PRN Reason: Consult order Sodium Chloride (0.9 % Sodium Chloride Flush 3 Ml Syringe) 3 ml IVFLUSH QSHIFT [facility] Last Admin: 06/24/24 09:27 Dose: 3 ml Documented By: STEFANI Labs 06/24/24 06:40 06/24/24 06:40 Labs: Laboratory Results - last 24 hr 06/23/24 06/23/24 06/23/24 14:45 16:26 20:46 MCV MCH MCHC RDW Plt Count MPV Absolute Nucleated RBC Nucleated RBC % (auto) Anion Gap Estim Creat Clear Calc Estimated GFR POC Glucose 247 H Random Glucose Calcium Iron TIBC % Saturation Unsat Iron Binding Vitamin B12 Folate Respiratory Panel Jones See Note Adenovirus (Rapid PCR) Not Detected B.pert (TEM-PCR) Not Detected B.parapertussis DNA PCR Not Detected C. pneumoniae DNA (PCR) Not Detected Coronavirus OC43 (PCR) Not Detected Coronavirus HKU1 (PCR) Not Detected Coronavirus 229E (PCR) Not Detected COVID-19 (ANN) Negative COVID-19 Clin Com See Note Coronavirus NL63 (PCR) Not Detected Human Metapneumovir PCR Detected A Influenza A (RT-PCR) Not Detected Influenza B (RT-PCR) Not Detected M. pneumoniae (PCR) Not Detected Parainfluenza 1 (PCR) Not Detected Parainfluenza 2 (PCR) Not Detected Parainfluenza 3 (PCR) Not Detected Parainfluenza 4 (PCR) Not Detected RSV (PCR) Not Detected Entero/Rhino (PCR) Not Detected SARS-CoV-2 RNA (RT-PCR) Not Detected Blood Type Antibody Screen Crossmatch 06/23/24 06/23/24 06/24/24 20:56 21:38 06:40 MCV 83.3 MCH 24.1 L MCHC 29.0 L RDW 15.6 Plt Count 177 MPV 11.8 Absolute Nucleated RBC 0.000 Nucleated RBC % (auto) 0.0 Anion Gap 13 Estim Creat Clear Calc 36.6 Estimated GFR 30 POC Glucose 217 H 216 H Random Glucose 215 H Calcium 8.5 D Iron 26 L TIBC 263 % Saturation 10 L Unsat Iron Binding 237 Vitamin B12 378 Folate 11.9 Respiratory Panel Jones Adenovirus (Rapid PCR) B.pert (TEM-PCR) B.parapertussis DNA PCR C. pneumoniae DNA (PCR) Coronavirus OC43 (PCR) Coronavirus HKU1 (PCR) Coronavirus 229E (PCR) COVID-19 (ANN) COVID-19 Clin Com Coronavirus NL63 (PCR) Human Metapneumovir PCR Influenza A (RT-PCR) Influenza B (RT-PCR) M. pneumoniae (PCR) Parainfluenza 1 (PCR) Parainfluenza 2 (PCR) Parainfluenza 3 (PCR) Parainfluenza 4 (PCR) RSV (PCR) Entero/Rhino (PCR) SARS-CoV-2 RNA (RT-PCR) Blood Type Antibody Screen Crossmatch 06/24/24 06/24/24 06/24/24 07:37 09:03 11:07 MCV MCH MCHC RDW Plt Count MPV Absolute Nucleated RBC Nucleated RBC % (auto) Anion Gap Estim Creat Clear Calc Estimated GFR POC Glucose 182 H 196 H Random Glucose Calcium Iron TIBC % Saturation Unsat Iron Binding Vitamin B12 Folate Respiratory Panel Jones Adenovirus (Rapid PCR) B.pert (TEM-PCR) B.parapertussis DNA PCR C. pneumoniae DNA (PCR) Coronavirus OC43 (PCR) Coronavirus HKU1 (PCR) Coronavirus 229E (PCR) COVID-19 (ANN) COVID-19 Clin Com Coronavirus NL63 (PCR) Human Metapneumovir PCR Influenza A (RT-PCR) Influenza B (RT-PCR) M. pneumoniae (PCR) Parainfluenza 1 (PCR) Parainfluenza 2 (PCR) Parainfluenza 3 (PCR) Parainfluenza 4 (PCR) RSV (PCR) Entero/Rhino (PCR) SARS-CoV-2 RNA (RT-PCR) Blood Type A Positive Antibody Screen NEGATIVE Crossmatch See Detail Microbiology Microbiology Results: Microbiology 06/22/24 18:58 Blood Culture - Preliminary Blood - Venous No growth after 24 hours. 06/22/24 18:58 Blood Culture - Preliminary Blood - Venous No growth after 24 hours. Assessment and Plan (1) Closed nondisplaced fracture of left tibial plateau: Status: Acute (2) Hospital-acquired pneumonia: Status: Acute (3) MARK (acute kidney injury): Status: Acute Plan Pt is a 73-year-old female with a PMH significant for?paroxysmal AFib on Eliquis s/p cardioversion 06/2023, CAD, HFpEF, HTN, CKD 3, insulin-dependent type 2 diabetes, asthma, and hypothyroidism who presented with hypoxia and confusion found to have probable pneumonia Acute hypoxic respiratory failure in the setting of probable hospital-acquired pneumonia recent hospitalization. No sepsis: No fever, tachycardia, tachypnea, or leukocytosis; lactic acid WNL cefepime and vancomycin, started 06/22/2024 procalcitonin on lower side, RPP + for human metapneumovirus, will deescalate antibiotics. will transition cefepime to ceftriaxone Titrate supplemental O2 >92, weaned down to 2L, continue to wean as tolerated Monitor respiratory status blood cultures negative to date MARK on CKD Creatinine 1.94 at time of presentation, elevated from 1.49 at time of last discharge Likely secondary to hypovolemia Received IVF in the ED torsemide on hold nondisplaced left tibial plateau fracture uncertain date of injury seen by ortho, no acute surgical intervention; non weight bearing on left leg x 6 weeks outpatient orthopedic follow up Chronic normocytic anemia H/H similar to previous no evidence of acute blood loss ? due to CKD B12, folate wnl, iron studies mixed, denies any blood loss no significant change, pt declined blood transfusion Acute Toxic metabolic encephalopathy likely due to above pneumonia, MARK, hypoxia ammonia ok brain CT negative improving, awake, alert today gabapentin, trazodone on hold to prevent over-sedation; resume as appropriate HFpEF Not in acute exacerbation Hold torsemide due to MARK Continue BB Monitor volume status Paroxysmal AFib HR low hold metoprolol Continue amiodarone, Eliquis HTN BP has been soft, but improving, resume amlodipine metoprolol on hold, HR has been in the 50s CAD/HLD Continue aspirin hold statin for now Insulin-dependent type 2 diabetes Sliding-scale insulin, Lantus - dose adjusted 30U (baseline 65, received 35U last admission) titrate prn hold Farxiga Diabetic diet Peripheral neuropathy hold gabapentin to prevent sedation ?chronic pain resume baseline oxycodone monitor for sedation Mood resume paxil and cymbalta hydroxyzine on hold to prevent sedation Hypothyroidism Continue Synthroid ANILA noncompliant at baseline, cpap during hospitalization CPAP Full Code DVT Prophylaxis: Hellen Requires ongoing inpatient stay for management ?MARK and acute hypoxic respiratory failure in the setting of likely hospital-acquired pneumonia. She will require hospital level care for administration of supplemental oxygen, IV antibiotics, and close monitoring of labs including kidney function. Quality Stroke Does the patient have a stroke diagnosis?: No VTE Prior VTE?: No VTE Risk Level:: Medical - moderate - high VTE Device Contraindication: Treatment Not Indicated VTE Drug Contraindication: N/A - Med Ordered
--- NOTE | 2024-06-24 14:50 | PC.NURSE ---
pt refuses blood transfusion, CARLOS Asif aware @bedside this am with methods specialist, blood bank also made aware.
[2024-06-24] MEDS: cefTRIAXone sodium 1 GM VIAL IVPUSH (15:14)
[2024-06-24 16:45] LABS: Glucose, Whole Blood 241 mg/dL (60-115)
--- NOTE | 2024-06-24 17:36 | PC.NURSE ---
CARLOS Salcedo made aware of pt complaint of internal vaginal itching, no vaginal discharge noted. pt states she believes it is from purewick use. purewick dc earlier in the shift, daily and prn pericare given throughout shift. no new orders at this time.
[2024-06-24] MEDS: ondansetron HCL 4 MG/2 ML VIAL IVPUSH (18:18)
[2024-06-24 19:58] LABS: Glucose, Whole Blood 283 mg/dL (60-115)
[2024-06-24 20:22] LABS: Vancomycin Random 13.6 mcg/mL (15-20)
[2024-06-24] MEDS: guaiFENesin DM 200/20/10 ML 10 ML SYRUP PO (21:01)
[2024-06-24] MEDS: Aspirin Enteric Coated 81 MG TABLET.DR PO (21:01)
[2024-06-24] MEDS: Zolpidem Tartrate 5 MG TABLET PO (21:01)
[2024-06-24] MEDS: Insulin Glargine,Hum.rec.anlog 100 UNIT/ML 10 ML VIAL 30 UNIT SUBCUT (21:02)
[2024-06-24] MEDS: vancomycin HCL 1,000 MG in 0.9 % Sodium Chloride 250 ML 270 MG IV (21:05)
--- NOTE | 2024-06-24 23:43 | PC.RT ---
pt does not wear CPAP, refused after 10 mins
[2024-06-25 04:00] VITALS: BP 138/61; PULSE 61; RESP 16; TEMP 36.1; O2SAT 93
[2024-06-25] MEDS: Levothyroxine Sodium 50 MCG TABLET PO (05:41)
[2024-06-25] MEDS: Omeprazole 40 MG CAPSULE.DR PO (05:41)
[2024-06-25] MEDS: oxyCODONE HCl Immed Release 5 MG TABLET PO (05:41)
[2024-06-25 07:17] LABS: Anion Gap 13 (12-20); Blood Urea Nitrogen 38 mg/dL (9-16); Calcium 8.5 mg/dL (8.4-10.2); Carbon Dioxide 33 mmol/L (22-29); Chloride 98 mmol/L (96-108); Estimated Glomerular Filt Rate 43; Glucose Random 191 mg/dL (60-115); Potassium 4.8 mmol/L (3.3-5.1); Sodium 139 mmol/L (135-145)
[2024-06-25 07:40] VITALS: BP 162/72; PULSE 59; RESP 18; TEMP 36.6; O2SAT 96
[2024-06-25 07:40] LABS: Glucose, Whole Blood 169 mg/dL (60-115)
[2024-06-25] MEDS: Insulin Lispro 100 UNIT/ML 3 ML VIAL SUBCUT ×4 (07:55→20:17)
[2024-06-25] MEDS: 0.9 % Sodium Chloride Flush 3 ML SYRINGE IVFLUSH ×3 (07:55→20:17)
[2024-06-25] MEDS: PARoxetine HCL 40 MG TABLET PO (07:55)
[2024-06-25] MEDS: Amiodarone HCL 200 MG TABLET PO (07:56)
[2024-06-25] MEDS: DULoxetine HCl 20 MG CAPSULE.DR PO (07:56)
[2024-06-25] MEDS: Torsemide 20 MG TABLET PO (07:56)
[2024-06-25] MEDS: amLODIPine Besylate 5 MG TABLET PO (07:56)
[2024-06-25] MEDS: Apixaban 5 MG TABLET PO ×2 (07:56→20:16)
[2024-06-25] MEDS: Nystatin Powder 15 GM BOTTLE 1 APPL TOPICAL ×2 (07:57→20:21)
[2024-06-25 08:01] LABS: Hematocrit 26.7 % (37.0-47.0); Hemoglobin 7.8 g/dl (12.0-16.0); Mean Corpuscular HGB Conc 29.2 g/dl (31.0-35.0); Mean Corpuscular Hemoglobin 24.6 pg (27.0-33.0); Mean Corpuscular Volume 84.2 fL (80.0-98.0); Mean Platelet Volume 11.3 fL (9.4-12.3); Platelet Count 181 X10*3/uL (160-400); Red Blood Count 3.17 X10*6/uL (4.20-5.50); Red Cell Distribution Width 15.3 % (11.0-16.0); White Blood Count 7.4 X10*3/uL (4.8-10.8)
--- NOTE | 2024-06-25 10:47 | HO.PM.IMPN ---
Subjective Subjective Date of Service: 06/25/24 Interval History: seen and examined this morning follow up for pneumonia, human metapneumovirus, tibial plateau fracture, encephalopthy History obtained with the assistance of a incident response specialist No overnight events feeling better today, breathing improving, cough improving Review of Systems Review of Systems: Yes all other systems are reviewed and are negative Constitutional Constitutional: Denies chills and Denies fever(s) Cardiovascular Cardiovascular: Denies chest pain, Denies palpitations and Denies dyspnea Respiratory Respiratory: Reports cough and Denies dyspnea Gastrointestinal Gastrointestinal: Denies abdominal pain, Denies nausea and Denies vomiting Endocrine Endocrine: Denies palpitations Physical Exam Vital Signs: Vital Signs: Last Vital Signs Temp 97.8 F 06/25/24 07:40 Pulse 59 06/25/24 07:40 Resp 18 06/25/24 07:40 BP 162/72 H 06/25/24 07:40 Pulse Ox 96 06/25/24 07:40 O2 Del Method Nasal Cannula 06/25/24 07:40 O2 Flow Rate 2 06/25/24 07:40 BMI result Body Mass Index 38.6 Const: General: cooperative, comfortable, no acute distress, well developed, alert and awake Nutritional Appearance: obese Orientation/consciousness: patient oriented x3 Resp: Other: diminished, no wheeze, no rales Effort & Inspection: normal respiratory effort, able to speak in complete sentences, no respiratory distress and no use of accessory muscles Cardio: Rate: regular rate GI: Inspection: No distended Palpation (GI): Soft to palpation and nontender Skin: Other: left shay covered with c/d/i bandage; left great toe, blood blister Neuro: General: patient oriented x3, moves all extremities and CN's II-XI intact bilaterally Extrem: General: Yes no pedal edema Objective Data Active Medications Acetaminophen (Acetaminophen 325 Mg Tablet) 650 mg PO Q6H PRN PRN Reason: Pain, Mild (Pain Scale 1-3), fever or headache Last Admin: 06/23/24 11:09 Dose: 650 mg Documented By: JAYME Amiodarone HCl (Amiodarone Hcl 200 Mg Tablet) 200 mg PO DAILY [facility] Last Admin: 06/25/24 07:56 Dose: 200 mg Documented By: STEFANI Amlodipine Besylate (Amlodipine Besylate 5 Mg Tablet) 5 mg PO DAILY [facility]; Protocol Last Admin: 06/25/24 07:56 Dose: 5 mg Documented By: STEFANI Apixaban (Apixaban 5 Mg Tablet) 5 mg PO BID [facility] Last Admin: 06/25/24 07:56 Dose: 5 mg Documented By: STEFANI Aspirin (Aspirin Enteric Coated 81 Mg Tablet.) 81 mg PO BEDTIME [facility] Last Admin: 06/24/24 21:01 Dose: 81 mg Documented By: MIS Calcium Carbonate (Calcium Carbonate 750 Mg Tab.Chew) 750 mg PO Q4H PRN PRN Reason: Heartburn Ceftriaxone Sodium (Ceftriaxone Sodium 1 Gm Vial) 1 gm IVPUSH Q24H [facility] Last Admin: 06/24/24 15:14 Dose: 1 gm Documented By: STEFANI Duloxetine HCl (Duloxetine Hcl 20 Mg Capsule.) 20 mg PO DAILY [facility] Last Admin: 06/25/24 07:56 Dose: 20 mg Documented By: STEFANI Glucose (Glucose Gel 15 Gm Gel..Gram.) 15 gm PO Q15M PRN; Protocol PRN Reason: per Hypoglycemia Standing Ord. Guaifenesin/Dextromethorphan (Guaifenesin Dm 200/20/10 Ml 10 Ml Syrup) 10 ml PO Q6H PRN PRN Reason: Cough Last Admin: 06/24/24 21:01 Dose: 10 ml Documented By: MIS Vancomycin HCl 1,000 mg/ (Sodium Chloride) 270 mls @ 270 mls/hr IV Q24H [facility] Last Infusion: 06/24/24 22:23 Dose: Infused Documented By: MIS Dextrose (D10) 250 mls @ 750 mls/hr IV Q15M PRN; Protocol PRN Reason: per Hypoglycemia Standing Ord. Insulin Glargine (Insulin Glargine,Hum.Rec.Anlog 100 Unit/Ml 10 Ml Vial) 30 unit SUBCUT BEDTIME [facility] Last Admin: 06/24/24 21:02 Dose: 30 unit Documented By: MIS Insulin Human Lispro (Insulin Lispro 100 Unit/Ml 3 Ml Vial) 0 unit SUBCUT QIDACHS [facility]; Protocol Last Admin: 06/25/24 07:55 Dose: 2 unit Documented By: STEFANI Levothyroxine Sodium (Levothyroxine Sodium 50 Mcg Tablet) 50 mcg PO DAILY@0600 [facility] Last Admin: 06/25/24 05:41 Dose: 50 mcg Documented By: MIS Magnesium Hydroxide (Milk Of Magnesia 30 Ml Oral.Susp) 30 ml PO DAILY PRN PRN Reason: Constipation Nystatin (Nystatin Powder 15 Gm Bottle) 1 appl TOPICAL BID [facility]; Protocol Last Admin: 06/25/24 07:57 Dose: 1 appl Documented By: STEFANI Omeprazole (Omeprazole 40 Mg Capsule.Dr) 40 mg PO DAILY@0630 [facility] Last Admin: 06/25/24 05:41 Dose: 40 mg Documented By: MIS Ondansetron HCl (Ondansetron Hcl 4 Mg/2 Ml Vial) 4 mg IVPUSH Q8H PRN PRN Reason: Nausea and Vomiting Last Admin: 06/24/24 18:18 Dose: 4 mg Documented By: STEFANI Oxycodone HCl (Oxycodone Hcl Immed Release 5 Mg Tablet) 5 mg PO Q6H PRN PRN Reason: Pain, Moderate(Pain Scale 4-6) Last Admin: 06/25/24 05:41 Dose: 5 mg Documented By: MIS Paroxetine HCl (Paroxetine Hcl 40 Mg Tablet) 40 mg PO DAILY [facility] Last Admin: 06/25/24 07:55 Dose: 40 mg Documented By: STEFANI Pharmacy Consult (Consult Rx Vancomycin Dosing) 1 each MISCELLANE DAILY PRN PRN Reason: Consult order Sodium Chloride (0.9 % Sodium Chloride Flush 3 Ml Sy[facility]) [facility] Admin: 06/25/24 07:55 Dose: 3 ml Documented By: STEFANI Torsemide (Torsemide 20 Mg Tablet) 20 mg PO DAILY [facility]; Protocol Last Admin: 06/25/24 07:56 Dose: 20 mg Documented By: STEFANI Zolpidem Tartrate (Zolpidem Tartrate 5 Mg Tablet) 5 mg PO BEDTIME PRN PRN Reason: Insomnia Last Admin: 06/24/24 21:01 Dose: 5 mg Documented By: MIS Labs 06/25/24 07:44 06/25/24 06:46 Labs: Laboratory Results - last 24 hr 06/24/24 06/24/24 06/24/24 09:03 11:07 16:37 MCV MCH MCHC RDW Plt Count MPV Absolute Nucleated RBC Nucleated RBC % (auto) Anion Gap Estim Creat Clear Calc Estimated GFR POC Glucose 196 H 241 H Random Glucose Calcium Random Vancomycin Crossmatch See Detail 06/24/24 06/24/24 06/25/24 18:52 19:54 06:46 MCV MCH MCHC RDW Plt Count MPV Absolute Nucleated RBC Nucleated RBC % (auto) Anion Gap 13 Estim Creat Clear Calc 50.0 Estimated GFR 43 POC Glucose 283 H Random Glucose 191 H Calcium 8.5 Random Vancomycin 13.6 L Crossmatch 06/25/24 06/25/24 07:35 07:44 MCV 84.2 MCH 24.6 L MCHC 29.2 L RDW 15.3 Plt Count 181 MPV 11.3 Absolute Nucleated RBC 0.000 Nucleated RBC % (auto) 0.0 Anion Gap Estim Creat Clear Calc Estimated GFR POC Glucose 169 H Random Glucose Calcium Random Vancomycin Crossmatch Microbiology Microbiology Results: Microbiology 06/22/24 18:58 Blood Culture - Preliminary Blood - Venous No growth after 48 hours. 06/22/24 18:58 Blood Culture - Preliminary Blood - Venous No growth after 48 hours. Assessment and Plan (1) Closed nondisplaced fracture of left tibial plateau: Status: Acute (2) Hospital-acquired pneumonia: Status: Acute (3) MARK (acute kidney injury): Status: Acute Plan Pt is a 73-year-old female with a PMH significant for?paroxysmal AFib on Eliquis s/p cardioversion 06/2023, CAD, HFpEF, HTN, CKD 3, insulin-dependent type 2 diabetes, asthma, and hypothyroidism who presented with hypoxia and confusion found to have probable pneumonia Acute hypoxic respiratory failure in the setting of probable viral pneumonia recent hospitalization. No sepsis: No fever, tachycardia, tachypnea, or leukocytosis; lactic acid WNL initially treated with IV cefepime and vancomycin, started 06/22/2024 procalcitonin on lower side, RPP + for human metapneumovirus, will deescalate antibiotics. will transition cefepime to ceftriaxone Titrate supplemental O2 >92, weaned down to 2L, continue to wean as tolerated Monitor respiratory status blood cultures negative to date MARK on CKD Creatinine down from 1.94 to 1.23, back to baseline Likely secondary to hypovolemia nondisplaced left tibial plateau fracture uncertain date of injury seen by ortho, no acute surgical intervention; non weight bearing on left leg x 6 weeks outpatient orthopedic follow up PT evaluation pending Chronic normocytic anemia H/H similar to previous no evidence of acute blood loss ? due to chronic inflammation due to underlying CKD B12, folate wnl, iron studies mixed, denies any blood loss no significant change, pt declined blood transfusion H/H stable Acute Toxic metabolic encephalopathy likely due to above pneumonia, MARK, hypoxia ammonia ok brain CT negative resolved scheduled hydroxyzine and trazodone on hold to prevent over-sedation; resume as appropriate HFpEF Not in acute exacerbation Hold torsemide due to MARK Continue BB Monitor volume status Paroxysmal AFib HR low hold metoprolol Continue amiodaroneHellen HTN BP has been soft, but improving, resume amlodipine metoprolol on hold, HR has been in the 50s CAD/HLD Continue aspirin hold statin for now Insulin-dependent type 2 diabetes Sliding-scale insulin, Lantus - dose adjusted 30U (baseline 65, received 35U last admission) titrate prn hold Farxiga Diabetic diet Peripheral neuropathy resume gabapentin ?chronic pain continue baseline dose of oxycodone Mood resume paxil and cymbalta hydroxyzine on hold to prevent sedation Hypothyroidism Continue Synthroid ANILA noncompliant at baseline, cpap during hospitalization CPAP Full Code DVT Prophylaxis: Hellen dispo - PT evaluation pending Requires ongoing inpatient stay for management ?acute hypoxic respiratory failure in the setting of pneumonia. She will require hospital level care for administration of supplemental oxygen, IV antibiotics, and close monitoring of labs including kidney function. Quality Stroke Does the patient have a stroke diagnosis?: No VTE Prior VTE?: No VTE Risk Level:: Medical - moderate - high VTE Device Contraindication: Treatment Not Indicated VTE Drug Contraindication: N/A - Med Ordered
[2024-06-25 11:35] LABS: Glucose, Whole Blood 275 mg/dL (60-115)
[2024-06-25 15:53] VITALS: BP 135/60; PULSE 59; RESP 18; TEMP 36.5; O2SAT 96
[2024-06-25] MEDS: cefTRIAXone sodium 1 GM VIAL IVPUSH (16:05)
[2024-06-25] MEDS: Gabapentin 100 MG CAPSULE PO ×2 (16:06→20:16)
[2024-06-25 16:09] LABS: Glucose, Whole Blood 255 mg/dL (60-115)
[2024-06-25 18:21] LABS: Vancomycin Random 15.6 mcg/mL (15-20)
[2024-06-25 19:55] VITALS: BP 147/64; PULSE 60; RESP 18; TEMP 36.9; O2SAT 99
[2024-06-25] MEDS: Aspirin Enteric Coated 81 MG TABLET.DR PO (20:16)
[2024-06-25] MEDS: vancomycin HCL 1,000 MG in 0.9 % Sodium Chloride 250 ML 270 MG IV (20:17)
[2024-06-25] MEDS: Insulin Glargine,Hum.rec.anlog 100 UNIT/ML 10 ML VIAL 30 UNIT SUBCUT (20:17)
[2024-06-25 20:24] LABS: Glucose, Whole Blood 235 mg/dL (60-115)
[2024-06-26] MEDS: Zolpidem Tartrate 5 MG TABLET PO (02:20)
[2024-06-26 04:00] VITALS: BP 137/81; PULSE 62; RESP 18; TEMP 36.7; O2SAT 95
[2024-06-26] MEDS: Levothyroxine Sodium 50 MCG TABLET PO (05:32)
[2024-06-26] MEDS: Omeprazole 40 MG CAPSULE.DR PO (05:32)
[2024-06-26] MEDS: hydrOXYzine HCL 25 MG TABLET PO (06:31)
[2024-06-26 07:18] LABS: Glucose, Whole Blood 290 mg/dL (60-115)
[2024-06-26 07:32] LABS: Estimated Glomerular Filt Rate 34
[2024-06-26 07:37] VITALS: BP 141/59; PULSE 62; RESP 18; TEMP 36.9; O2SAT 95
[2024-06-26] MEDS: Insulin Lispro 100 UNIT/ML 3 ML VIAL SUBCUT ×4 (08:23→19:59)
[2024-06-26] MEDS: 0.9 % Sodium Chloride Flush 3 ML SYRINGE IVFLUSH ×2 (08:24→20:00)
[2024-06-26] MEDS: DULoxetine HCl 20 MG CAPSULE.DR PO (08:33)
[2024-06-26] MEDS: Amiodarone HCL 200 MG TABLET PO (08:33)
[2024-06-26] MEDS: Gabapentin 100 MG CAPSULE PO ×3 (08:33→19:59)
[2024-06-26] MEDS: PARoxetine HCL 40 MG TABLET PO (08:33)
[2024-06-26] MEDS: amLODIPine Besylate 5 MG TABLET PO (08:33)
[2024-06-26] MEDS: Apixaban 5 MG TABLET PO ×2 (08:33→19:59)
[2024-06-26] MEDS: oxyCODONE HCl Immed Release 5 MG TABLET PO (08:52)
[2024-06-26 11:32] LABS: Glucose, Whole Blood 298 mg/dL (60-115)
[2024-06-26 12:58] VITALS: BP 141/59; PULSE 62; O2SAT 95
--- NOTE | 2024-06-26 14:00 | P.PNIM_ITS ---
Subjective Subjective Date of Service: 06/26/24 Interval History: follow up for pneumonia, human metapneumovirus, tibial plateau fracture, encephalopthy History obtained with the assistance of a granite block paver No overnight events feeling better today, breathing improving, cough improving Review of Systems Review of Systems: Yes all other systems are reviewed and are negative Constitutional Constitutional: Denies chills and Denies fever(s) Cardiovascular Cardiovascular: Denies chest pain, Denies palpitations and Denies dyspnea Respiratory Respiratory: Reports cough and Denies dyspnea Gastrointestinal Gastrointestinal: Denies abdominal pain, Denies nausea and Denies vomiting Endocrine Endocrine: Denies palpitations Physical Exam 2 Vital Signs: Vital Signs: Last Vital Signs Temp 98.4 F 06/26/24 07:37 Pulse 62 06/26/24 12:58 Resp 18 06/26/24 07:37 BP 141/59 H 06/26/24 12:58 Pulse Ox 95 06/26/24 12:58 O2 Del Method Nasal Cannula 06/26/24 07:37 O2 Flow Rate 2 06/26/24 07:37 BMI result Body Mass Index 38.6 Appearing in no acute distress lung sounds are clear to auscultation heart regular rate rhythm, clear S1, S2 positive bowel sounds, abdomen is soft, nontender neuro patient is alert x3, no focal deficits Objective Data Active Medications Acetaminophen (Acetaminophen 325 Mg Tablet) 650 mg PO Q6H PRN PRN Reason: Pain, Mild (Pain Scale 1-3), fever or headache Last Admin: 06/23/24 11:09 Dose: 650 mg Documented By: JAYME Amiodarone HCl (Amiodarone Hcl 200 Mg Tablet) 200 mg PO DAILY [facility] Last Admin: 06/26/24 08:33 Dose: 200 mg Documented By: PATSY Amlodipine Besylate (Amlodipine Besylate 5 Mg Tablet) 5 mg PO DAILY [facility]; Protocol Last Admin: 06/26/24 08:33 Dose: 5 mg Documented By: PATSY Apixaban (Apixaban 5 Mg Tablet) 5 mg PO BID [facility] Last Admin: 06/26/24 08:33 Dose: 5 mg Documented By: PATSY Aspirin (Aspirin Enteric Coated 81 Mg Tablet.) 81 mg PO BEDTIME [facility] Last Admin: 06/25/24 20:16 Dose: 81 mg Documented By: LOI Calcium Carbonate (Calcium Carbonate 750 Mg Tab.Chew) 750 mg PO Q4H PRN PRN Reason: Heartburn Ceftriaxone Sodium (Ceftriaxone Sodium 1 Gm Vial) 1 gm IVPUSH Q24H [facility] Last Admin: 06/25/24 16:05 Dose: 1 gm Documented By: STEFANI Duloxetine HCl (Duloxetine Hcl 20 Mg Capsule.) 20 mg PO DAILY [facility] Last Admin: 06/26/24 08:33 Dose: 20 mg Documented By: PATSY Gabapentin (Gabapentin 100 Mg Capsule) 100 mg PO TID [facility] Last Admin: 06/26/24 08:33 Dose: 100 mg Documented By: PATSY Glucose (Glucose Gel 15 Gm Gel..Gram.) 15 gm PO Q15M PRN; Protocol PRN Reason: per Hypoglycemia Standing Ord. Guaifenesin/Dextromethorphan (Guaifenesin Dm 200/20/10 Ml 10 Ml Syrup) 10 ml PO Q6H PRN PRN Reason: Cough Last Admin: 06/24/24 21:01 Dose: 10 ml Documented By: MIS Vancomycin HCl 1,000 mg/ (Sodium Chloride) 270 mls @ 270 mls/hr IV Q24H [facility] Last Infusion: 06/25/24 21:28 Dose: Infused Documented By: LOI Dextrose (D10) 250 mls @ 750 mls/hr IV Q15M PRN; Protocol PRN Reason: per Hypoglycemia Standing Ord. Insulin Glargine (Insulin Glargine,Hum.Rec.Anlog 100 Unit/Ml 10 Ml Vial) 30 unit SUBCUT BEDTIME [facility] Last Admin: 06/25/24 20:17 Dose: 30 unit Documented By: LOI Insulin Human Lispro (Insulin Lispro 100 Unit/Ml 3 Ml Vial) 0 unit SUBCUT QIDACHS [facility]; Protocol Last Admin: 06/26/24 12:03 Dose: 6 unit Documented By: PATSY Levothyroxine Sodium (Levothyroxine Sodium 50 Mcg Tablet) 50 mcg PO DAILY@0600 [facility] Last Admin: 06/26/24 05:32 Dose: 50 mcg Documented By: LOI Magnesium Hydroxide (Milk Of Magnesia 30 Ml Oral.Susp) 30 ml PO DAILY PRN PRN Reason: Constipation Nystatin (Nystatin Powder 15 Gm Bottle) 1 appl TOPICAL BID [facility]; Protocol Last Admin: 06/26/24 08:47 Dose: Not Given Documented By: PATSY Non-Admin Reason: Patient Refused Omeprazole (Omeprazole 40 Mg Peña.) 40 mg PO DAILY@0630 [facility] Last Admin: 06/26/24 05:32 Dose: 40 mg Documented By: LOI Ondansetron HCl (Ondansetron Hcl 4 Mg/2 Ml Vial) 4 mg IVPUSH Q8H PRN PRN Reason: Nausea and Vomiting Last Admin: 06/24/24 18:18 Dose: 4 mg Documented By: STEFANI Oxycodone HCl (Oxycodone Hcl Immed Release 5 Mg Tablet) 5 mg PO Q6H PRN PRN Reason: Pain, Moderate(Pain Scale 4-6) Last Admin: 06/26/24 08:52 Dose: 5 mg Documented By: PATSY Paroxetine HCl (Paroxetine Hcl 40 Mg Tablet) 40 mg PO DAILY [facility] Last Admin: 06/26/24 08:33 Dose: 40 mg Documented By: PATSY Pharmacy Consult (Consult Rx Vancomycin Dosing) 1 each MISCELLANE DAILY PRN PRN Reason: Consult order Sodium Chloride (0.9 % Sodium Chloride Flush 3 Ml Syringe) 3 ml IVFLUSH QSHIFT [facility] Last Admin: 06/26/24 08:24 Dose: 3 ml Documented By: PATSY Torsemide (Torsemide 20 Mg Tablet) 20 mg PO DAILY [facility]; Protocol Last Admin: 06/25/24 07:56 Dose: 20 mg Documented By: STEFANI Zolpidem Tartrate (Zolpidem Tartrate 5 Mg Tablet) 5 mg PO BEDTIME PRN PRN Reason: Insomnia Last Admin: 06/26/24 02:20 Dose: 5 mg Documented By: LOI Labs 06/25/24 07:44 06/26/24 05:41 Labs: Laboratory Results - last 24 hr 06/25/24 06/25/24 06/25/24 16:00 17:57 19:59 Hold Purple Top Estim Creat Clear Calc Estimated GFR POC Glucose 255 H 235 H Random Vancomycin 15.6 06/26/24 06/26/24 06/26/24 05:41 07:08 11:27 Hold Purple Top SEE NOTE Estim Creat Clear Calc 41.0 Estimated GFR 34 POC Glucose 290 H 298 H Random Vancomycin Assessment and Plan (1) Closed nondisplaced fracture of left tibial plateau: Status: Acute (2) Hospital-acquired pneumonia: Status: Acute (3) MARK (acute kidney injury): Status: Acute Plan 73-year-old female with a PMH significant for?paroxysmal AFib on Eliquis s/p cardioversion 06/2023, CAD, HFpEF, HTN, CKD 3, insulin-dependent type 2 diabetes, asthma, and hypothyroidism who presented with hypoxia and confusion found to have probable pneumonia Acute hypoxic respiratory failure in the setting of probable viral pneumonia initially treated with IV cefepime and vancomycin, started 06/22/2024 procalcitonin on lower side, RPP + for human metapneumovirus, will deescalate antibiotics. Titrate supplemental O2 >92, weaned down to 2L, continue to wean as tolerated Monitor respiratory status blood cultures negative to date MARK on CKD Creatinine down from 1.94 to 1.50 Likely secondary to hypovolemia nondisplaced left tibial plateau fracture uncertain date of injury seen by ortho, no acute surgical intervention; non weight bearing on left leg x 6 weeks outpatient orthopedic follow up PT rec str Chronic normocytic anemia H/H similar to previous no evidence of acute blood loss ? due to chronic inflammation due to underlying CKD B12, folate wnl, iron studies mixed, denies any blood loss no significant change, pt declined blood transfusion H/H stable Acute Toxic metabolic encephalopathy. Resolved likely due to above pneumonia, MARK, hypoxia ammonia ok brain CT negative scheduled hydroxyzine and trazodone on hold to prevent over-sedation; resume as appropriate HFpEF Not in acute exacerbation Hold torsemide due to MARK Continue BB Monitor volume status Paroxysmal AFib HR low hold metoprolol Continue amiodarone, Eliquis HTN BP has been soft, but improving, resume amlodipine metoprolol on hold, HR has been in the 50s CAD/HLD Continue aspirin hold statin for now Insulin-dependent type 2 diabetes Sliding-scale insulin, Lantus - dose adjusted 30U (baseline 65, received 35U last admission) titrate prn hold Farxiga Diabetic diet Peripheral neuropathy resume gabapentin ?chronic pain continue baseline dose of oxycodone Mood resume paxil and cymbalta hydroxyzine on hold to prevent sedation Hypothyroidism Continue Synthroid ANILA noncompliant at baseline, cpap during hospitalization CPAP Full Code DVT Prophylaxis: Hellen Attending Dr. Panda dispo - PT rec STR Quality Stroke Does the patient have a stroke diagnosis?: No VTE Prior VTE?: No VTE Risk Level:: Medical - moderate - high VTE Device Contraindication: Treatment Not Indicated VTE Drug Contraindication: N/A - Med Ordered
--- NOTE | 2024-06-26 15:16 | HO.WOUND ---
Wound Consult: Initial 73yr old?female admitted to [facility] on 06/22/24 - See progress notes and H&P for detailed history.? Wound consult follow up for Left Lower Leg wounds and Left Jennifer Toe.? Patient agreeable to assessment and photo documentation.? Bilateral Lower Legs assessed see below. Right leg intact no injury noted. Left Great toe with stable black hard eschar - no fluctabnce noted no drainage noted - recommend keep stable and paint with Betadine Daily, leave open to air. Etiology is unclear the patient does have history of Diabetes and evidence to suggest Vascular disease. Recommend the patient followup with Outpt wound clinic for wound healing. Recommend follow up out patient Wound Clinic at [address] [place] [address] and to call for an appointment at time of discharge. [phone].? 06/20/24 last admission Left Leg - Overall Improving Etiology: ?Unclear Etiology suspect Venous wound vs Diabetic wound Present on Admission Wound Bed: improved wound bed - red moist tissue no slough noted to central wound Drainage / Odor: castaneda yellow drainage noted Edges: ? Irregular Katya wound: ?[place] pigmentation some swelling - No Induration, Fluctuance or Warmth noted Pain: patient denies pain Goals of Treatment: ? Durafiber Ag for moisture management and autolytic debridement Recommendations: 1. Turn and Reposition every 2 hours and as needed for patient comfort.? Use pillows or wedges to support off loading positions. 2. Off Load all bony prominences with use of pillows and heel boots if needed.? Apply Preventative foams where needed. ? 3. Monitor for incontinence and moisture control, use barrier creams when needed for prevention and treatment. 4. Provide adequate and supplemental nutrition.? 5. Order low air loss mattress. 6. When applicable maintain blood glucose levels per Providers order. 7. Left Lower Legs - Elevate heels off of bed surface - Cleanse with NS, pat dry. Apply Triad to periwound, apply durfiber AG to open wound bed, cover with dry gauze, ABD pad and Elastic netting. Change every other day while inpatient. Recommend follow up out patient Wound Clinic at [address] [place] [address] and to call for an appointment at time of discharge. [phone].? 8. Left Great Toe - [place] with Betadine allow to dry. Keep open to air. Re-consult wound care Nurse for wound deterioration or wound changes.
--- NOTE | 2024-06-26 15:20 | MHC.CM.PN ---
Addendum entered by Bing Ackerman RN 06/26/24 15:49: CM met with patient/both daughters at bedside to review plan per daughter request. Requesting additional home making services. Sent referral to [facility] via [facility]. Plan to dc tomorrow via BLS to daughter Alie's home: [address], [place]. Information given to [employer] Original Note: Per MD rounds patient not medically cleared for dc. PT rec STR, patient NWB LLE x 6wks. CM met with patient at bedside, daughter Nai via telephone, w/ lang interpreter assisting. Patient/daughter not agreeable to STR. Plan for patient to stay with other daughter temporarily and resume VNA services w/ addition of home PT. FRONT OFFICE ASSOCIATE aware. [facility] updated.
[2024-06-26 15:44] VITALS: BP 130/75; PULSE 64; RESP 18; TEMP 36.4; O2SAT 99
[2024-06-26] MEDS: cefTRIAXone sodium 1 GM VIAL IVPUSH (15:57)
[2024-06-26 16:37] LABS: Glucose, Whole Blood 290 mg/dL (60-115)
[2024-06-26] MEDS: 0.9 % Sodium Chloride 500 ML 75 ML IVCONT (16:46)
[2024-06-26 16:56] LABS: Anion Gap 14 (12-20); Blood Urea Nitrogen 32 mg/dL (9-16); Calcium 8.2 mg/dL (8.4-10.2); Carbon Dioxide 33 mmol/L (22-29); Chloride 96 mmol/L (96-108); Creatinine Clr Calc Pharmacy 42.7; Estimated Glomerular Filt Rate 36; Glucose Random 279 mg/dL (60-115); Potassium 5.6 mmol/L (3.3-5.1); Sodium 137 mmol/L (135-145)
[2024-06-26 19:48] LABS: Glucose, Whole Blood 322 mg/dL (60-115)
[2024-06-26 19:59] VITALS: PULSE 66; RESP 20; TEMP 36.1; O2SAT 100
[2024-06-26] MEDS: Aspirin Enteric Coated 81 MG TABLET.DR PO (19:59)
[2024-06-26] MEDS: Insulin Glargine,Hum.rec.anlog 100 UNIT/ML 10 ML VIAL 30 UNIT SUBCUT (19:59)
[2024-06-26] MEDS: vancomycin HCL 1,000 MG in 0.9 % Sodium Chloride 250 ML 270 MG IV (22:12)
--- NOTE | 2024-06-27 02:33 | PC.NURSE ---
Addendum entered by Yvette Newby RN 06/27/24 06:11: Pt still restless, crying and yelling, and asking for anxiety med, Dr. Knight was notified, another dose of Lorazepam 1 mg iv given, pt still restless but settled down a bit after. Addendum entered by Yvette Newby RN 06/27/24 04:25: Around 0230, pt verbalized feeling increasingly anxious, seen pt moaning and rocking, Dr. Knight was notified, Lorazepam 1 mg IV given. Original Note: Pt seen on bed alert and oriented x3, Vanco trough due at 1800, as per previous RN city secretary was unable to draw as pt was anxious and on a commode. Awaiting for phebotomist and tried to call few times for the draw, Was able to spoke to city secretary on the phone at around 2200 and claimed that pt had refused any blood draw after being approached 4x, Dr. Knight and pharmacy was notified, Dr. Knight agreed to give Vancomycin dose.
[2024-06-27] MEDS: LORazepam 2 MG/ML VIAL 1 MG IVPUSH ×2 (03:39→05:09)
[2024-06-27 03:50] VITALS: BP 132/90; PULSE 64; RESP 20; TEMP 36.4; O2SAT 98
[2024-06-27] MEDS: Omeprazole 40 MG CAPSULE.DR PO (05:07)
[2024-06-27] MEDS: Levothyroxine Sodium 50 MCG TABLET PO (05:07)
[2024-06-27 07:30] VITALS: BP 134/93; PULSE 67; RESP 18; TEMP 36.6; O2SAT 96
[2024-06-27 07:36] LABS: Glucose, Whole Blood 186 mg/dL (60-115)
[2024-06-27 07:37] LABS: Creatinine Clr Calc Pharmacy 46.9; Estimated Glomerular Filt Rate 40
[2024-06-27] MEDS: Gabapentin 100 MG CAPSULE PO (09:21)
[2024-06-27] MEDS: 0.9 % Sodium Chloride Flush 3 ML SYRINGE IVFLUSH (09:21)
[2024-06-27] MEDS: PARoxetine HCL 40 MG TABLET PO (09:21)
[2024-06-27] MEDS: Amiodarone HCL 200 MG TABLET PO (09:21)
[2024-06-27] MEDS: amLODIPine Besylate 5 MG TABLET PO (09:21)
[2024-06-27] MEDS: Insulin Lispro 100 UNIT/ML 3 ML VIAL SUBCUT ×2 (09:21→13:06)
[2024-06-27] MEDS: Apixaban 5 MG TABLET PO (09:21)
[2024-06-27] MEDS: DULoxetine HCl 20 MG CAPSULE.DR PO (09:21)
[2024-06-27] MEDS: Nystatin Powder 15 GM BOTTLE 1 APPL TOPICAL (09:25)
--- NOTE | 2024-06-27 09:55 | HO.PM.IMPN ---
Subjective Subjective Date of Service: 06/27/24 Interval History: follow up for pneumonia, human metapneumovirus, tibial plateau fracture, encephalopthy History obtained with the assistance of a distributor cleaner No overnight events feeling better today, breathing improving, cough improving Review of Systems Review of Systems: Yes all other systems are reviewed and are negative Constitutional Constitutional: Denies chills and Denies fever(s) Cardiovascular Cardiovascular: Denies chest pain, Denies palpitations and Denies dyspnea Respiratory Respiratory: Reports cough and Denies dyspnea Gastrointestinal Gastrointestinal: Denies abdominal pain, Denies nausea and Denies vomiting Endocrine Endocrine: Denies palpitations Physical Exam Vital Signs: Vital Signs: Last Vital Signs Temp 97.8 F 06/27/24 07:30 Pulse 67 06/27/24 07:30 Resp 18 06/27/24 07:30 BP 134/93 H 06/27/24 07:30 Pulse Ox 96 06/27/24 07:30 O2 Del Method Nasal Cannula 06/27/24 07:30 O2 Flow Rate 2.0 06/27/24 07:30 BMI result Body Mass Index 38.6 Objective Data Active Medications Acetaminophen (Acetaminophen 325 Mg Tablet) 650 mg PO Q6H PRN PRN Reason: Pain, Mild (Pain Scale 1-3), fever or headache Last Admin: 06/23/24 11:09 Dose: 650 mg Documented By: JAYME Amiodarone HCl (Amiodarone Hcl 200 Mg Tablet) 200 mg PO DAILY [facility] Last Admin: 06/27/24 09:21 Dose: 200 mg Documented By: WILL Amlodipine Besylate (Amlodipine Besylate 5 Mg Tablet) 5 mg PO DAILY [facility]; Protocol Last Admin: 06/27/24 09:21 Dose: 5 mg Documented By: WILL Apixaban (Apixaban 5 Mg Tablet) 5 mg PO BID [facility] Last Admin: 06/27/24 09:21 Dose: 5 mg Documented By: WILL Aspirin (Aspirin Enteric Coated 81 Mg Tablet.) 81 mg PO BEDTIME [facility] Last Admin: 06/26/24 19:59 Dose: 81 mg Documented By: CASTILM Calcium Carbonate (Calcium Carbonate 750 Mg Tab.Chew) 750 mg PO Q4H PRN PRN Reason: Heartburn Ceftriaxone Sodium (Ceftriaxone Sodium 1 Gm Vial) 1 gm IVPUSH Q24H [facility] Last Admin: 06/26/24 15:57 Dose: 1 gm Documented By: PATSY Duloxetine HCl (Duloxetine Hcl 20 Mg Capsule.) 20 mg PO DAILY [facility] Last Admin: 06/27/24 09:21 Dose: 20 mg Documented By: WILL Gabapentin (Gabapentin 100 Mg Capsule) 100 mg PO TID [facility] Last Admin: 06/27/24 09:21 Dose: 100 mg Documented By: WILL Glucose (Glucose Gel 15 Gm Gel..Gram.) 15 gm PO Q15M PRN; Protocol PRN Reason: per Hypoglycemia Standing Ord. Guaifenesin/Dextromethorphan (Guaifenesin Dm 200/20/10 Ml 10 Ml Syrup) 10 ml PO Q6H PRN PRN Reason: Cough Last Admin: 06/24/24 21:01 Dose: 10 ml Documented By: MIS Vancomycin HCl 1,000 mg/ (Sodium Chloride) 270 mls @ 270 mls/hr IV Q24H [facility] Last Infusion: 06/26/24 23:28 Dose: Infused Documented By: MILLI Dextrose (D10) 250 mls @ 750 mls/hr IV Q15M PRN; Protocol PRN Reason: per Hypoglycemia Standing Ord. Insulin Glargine (Insulin Glargine,Hum.Rec.Anlog 100 Unit/Ml 10 Ml Vial) 30 unit SUBCUT BEDTIME [facility] Last Admin: 06/26/24 19:59 Dose: 30 unit Documented By: MILLI Insulin Human Lispro (Insulin Lispro 100 Unit/Ml 3 Ml Vial) 0 unit SUBCUT QIDACHS [facility]; Protocol Last Admin: 06/27/24 09:21 Dose: 2 unit Documented By: WILL Levothyroxine Sodium (Levothyroxine Sodium 50 Mcg Tablet) 50 mcg PO DAILY@0600 [facility] Last Admin: 06/27/24 05:07 Dose: 50 mcg Documented By: MILLI Magnesium Hydroxide (Milk Of Magnesia 30 Ml Oral.Susp) 30 ml PO DAILY PRN PRN Reason: Constipation Nystatin (Nystatin Powder 15 Gm Bottle) 1 appl TOPICAL BID [facility]; Protocol Last Admin: 06/27/24 09:25 Dose: 1 appl Documented By: WILL Omeprazole (Omeprazole 40 Mg Capsule.) 40 mg PO DAILY@0630 [facility] Last Admin: 06/27/24 05:07 Dose: 40 mg Documented By: MILLI Ondansetron HCl (Ondansetron Hcl 4 Mg/2 Ml Vial) 4 mg IVPUSH Q8H PRN PRN Reason: Nausea and Vomiting Last Admin: 06/24/24 18:18 Dose: 4 mg Documented By: STEFANI Oxycodone HCl (Oxycodone Hcl Immed Release 5 Mg Tablet) 5 mg PO Q6H PRN PRN Reason: Pain, Moderate(Pain Scale 4-6) Last Admin: 06/26/24 08:52 Dose: 5 mg Documented By: PATSY Paroxetine HCl (Paroxetine Hcl 40 Mg Tablet) 40 mg PO DAILY [facility] Last Admin: 06/27/24 09:21 Dose: 40 mg Documented By: WILL Pharmacy Consult (Consult Rx Vancomycin Dosing) 1 each MISCELLANE DAILY PRN PRN Reason: Consult order Sodium Biphosphate/Sodium Phosphate (Sodium Phosphate,[place]-Dibasic 133 Ml Enema) 133 ml VA ONCE PRN PRN Reason: Constipation Sodium Chloride (0.9 % Sodium Chloride Flush 3 Ml Syringe) 3 ml IVFLUSH QSHIFT [facility] Last Admin: 06/27/24 09:21 Dose: 3 ml Documented By: WILL Torsemide (Torsemide 20 Mg Tablet) 20 mg PO DAILY [facility]; Protocol Last Admin: 06/25/24 07:56 Dose: 20 mg Documented By: STEFANI Zolpidem Tartrate (Zolpidem Tartrate 5 Mg Tablet) 5 mg PO BEDTIME PRN PRN Reason: Insomnia Last Admin: 06/26/24 02:20 Dose: 5 mg Documented By: LOI Labs 06/27/24 11:12 06/27/24 06:16 Labs: Laboratory Results - last 24 hr 06/26/24 06/26/24 06/26/24 11:27 16:08 16:33 Anion Gap 14 Estim Creat Clear Calc 42.7 Estimated GFR 36 POC Glucose 298 H 290 H Random Glucose 279 H Calcium 8.2 L 06/26/24 06/27/24 06/27/24 19:38 06:16 07:26 Anion Gap Estim Creat Clear Calc 46.9 Estimated GFR 40 POC Glucose 322 H 186 H Random Glucose Calcium Assessment and Plan (1) Closed nondisplaced fracture of left tibial plateau: Status: Acute (2) Hospital-acquired pneumonia: Status: Acute (3) MARK (acute kidney injury): Status: Acute Plan 73-year-old female with a PMH significant for?paroxysmal AFib on Eliquis s/p cardioversion 06/2023, CAD, HFpEF, HTN, CKD 3, insulin-dependent type 2 diabetes, asthma, and hypothyroidism who presented with hypoxia and confusion found to have probable pneumonia Acute hypoxic respiratory failure in the setting of probable viral pneumonia initially treated with IV cefepime and vancomycin, started 06/22/2024 procalcitonin on lower side, RPP + for human metapneumovirus, will deescalate antibiotics. Titrate supplemental O2 >92, weaned down to 2L, continue to wean as tolerated Monitor respiratory status blood cultures negative to date MARK on CKD Creatinine down from 1.94 to 1.50 Likely secondary to hypovolemia nondisplaced left tibial plateau fracture uncertain date of injury seen by ortho, no acute surgical intervention; non weight bearing on left leg x 6 weeks outpatient orthopedic follow up PT rec str Chronic normocytic anemia H/H similar to previous no evidence of acute blood loss ? due to chronic inflammation due to underlying CKD B12, folate wnl, iron studies mixed, denies any blood loss no significant change, pt declined blood transfusion H/H stable Acute Toxic metabolic encephalopathy. Resolved likely due to above pneumonia, MARK, hypoxia ammonia ok brain CT negative scheduled hydroxyzine and trazodone on hold to prevent over-sedation; resume as appropriate HFpEF Not in acute exacerbation Hold torsemide due to MARK Continue BB Monitor volume status Paroxysmal AFib HR low hold metoprolol Continue amiodarone, Eliquis HTN BP has been soft, but improving, resume amlodipine metoprolol on hold, HR has been in the 50s CAD/HLD Continue aspirin hold statin for now Insulin-dependent type 2 diabetes Sliding-scale insulin, Lantus - dose adjusted 30U (baseline 65, received 35U last admission) titrate prn hold Farxiga Diabetic diet Peripheral neuropathy resume gabapentin ?chronic pain continue baseline dose of oxycodone Mood resume paxil and cymbalta hydroxyzine on hold to prevent sedation Hypothyroidism Continue Synthroid ANILA noncompliant at baseline, cpap during hospitalization CPAP Full Code DVT Prophylaxis: Hellen Attending Dr. Benton dispo - PT rec STR Quality Stroke Does the patient have a stroke diagnosis?: No VTE Prior VTE?: No VTE Risk Level:: Medical - moderate - high VTE Device Contraindication: Treatment Not Indicated VTE Drug Contraindication: N/A - Med Ordered
[2024-06-27 11:21] LABS: Glucose, Whole Blood 261 mg/dL (60-115)
[2024-06-27 11:29] LABS: Hematocrit 26.3 % (37.0-47.0); Hemoglobin 7.8 g/dl (12.0-16.0); Mean Corpuscular HGB Conc 29.7 g/dl (31.0-35.0); Mean Corpuscular Hemoglobin 24.7 pg (27.0-33.0); Mean Corpuscular Volume 83.2 fL (80.0-98.0); Mean Platelet Volume 10.8 fL (9.4-12.3); Platelet Count 203 X10*3/uL (160-400); Red Blood Count 3.16 X10*6/uL (4.20-5.50); Red Cell Distribution Width 15.4 % (11.0-16.0); White Blood Count 5.4 X10*3/uL (4.8-10.8)
--- NOTE | 2024-06-27 12:30 | P.DS_ITS ---
DS: Providers Provider Date of Service: 06/27/24 Date of admission: 06/22/24 20:56 Primary care physician: Unknown Physician Consults: 06/23/24 22:05 Consult to Wound Care Routine Reason for consultation: left great toe, open ulcer to lt leg 06/24/24 10:55 Consult to Orthopedics Routine Consulting Provider: [facility] [place] [facility] Reason for consultation: tibial plateau fracture Has provider been notified: No DS: Diagnosis Discharge Diagnosis (1) Closed nondisplaced fracture of left tibial plateau: Status: Acute (2) Hospital-acquired pneumonia: Status: Acute (3) MARK (acute kidney injury): Status: Acute DS: Summary Hospital Course Hospital Course: HP as per admitting provider. Pt is a 73-year-old [place]ic-speaking female with a PMH significant for?paroxysmal AFib on Eliquis s/p cardioversion 06/2023, CAD, HFpEF, HTN, CKD 3, insulin-dependent type 2 diabetes, asthma, and hypothyroidism who presents to the ED after slipping out of her wheelchair. 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 Family report since discharge patient has been more lethargic and weaker than normal, sleeping most of the day. Today patient apparently slipped out of her wheelchair as she was sitting in it. Family reports catching her and slowly lowering her to the floor. Denies head strike. EMS was called and reported finding her hypoxic, satting at 80% on RA. According to ED provider, patient initially complained of right and left ankle pain. Currently pt is somnolent but arousable, though continually falls back asleep during exam. Denies any acute medical complaints including shortness a breath or difficulty breathing, but HPI and ROS very limited due to patient's somnolence. In the ED pt was hypoxic as low as 79% on RA and with soft BP as low as 102/24. Labs were significant for bicarb 41, BUN 40, creatinine 1.94, BNP 184, and albumin 3.1. No leukocytosis. Stable normocytic anemia 8.7/29.1. VBG with pH 7.43, pCO2 72, and bicarb 48. CXR showed hyperinflation of lungs with linear atelectasis versus early infiltrate in left upper lobe. CT of head negative for acute intracranial hemorrhage or mass effect. Right ankle x-ray showed circumferential soft tissue swelling without acute fracture. Left ankle x-ray showed no acute fracture or dislocation. EKG demonstrated sinus bradycardia of 51 without significant ischemic changes, similar to previous. Pt was treated with IVF, albumin, cefepime, and vancomycin. Pt will be admitted to the hospital for treatment and for MARK and acute hypoxic respiratory failure in the setting of likely hospital-acquired pneumonia. Acute hypoxic respiratory failure in the setting of probable viral pneumonia initially treated with IV cefepime and vancomycin, started 06/22/2024, completed antibiotic course procalcitonin on lower side, RPP + for human metapneumovirus Home O2 evaluation, we will be sent home with oxygen blood cultures negative to date MARK on CKD secondary to hypovolemia. Resolved nondisplaced left tibial plateau fracture uncertain date of injury seen by ortho, no acute surgical intervention; non weight bearing on left leg x 6 weeks outpatient orthopedic follow up PT rec str but patient wishes to go home and will have therapy at home Chronic normocytic anemia H/H similar to previous no evidence of acute blood loss ? due to chronic inflammation due to underlying CKD B12, folate wnl, iron studies mixed, denies any blood loss no significant change, pt declined blood transfusion H/H stable Acute Toxic metabolic encephalopathy. Resolved likely due to above pneumonia, MARK, hypoxia ammonia ok brain CT negative scheduled hydroxyzine and trazodone on hold to prevent over-sedation; resume as appropriate HFpEF No acute exacerbation, continue torsemide and BB Paroxysmal AFib Continue amiodarone, Eliquis and BB HTN amlodipine and metoprolol CAD/HLD Continue aspirin and statin Insulin-dependent type 2 diabetes continue home medications Peripheral neuropathy gabapentin ?chronic pain continue baseline dose of oxycodone Mood paxil, cymbalta, hydroxyzine Hypothyroidism Continue Synthroid ANILA noncompliant at baseline, cpap during hospitalization Time Attestation Discharge Coordination Time (in mins): 40 Quality: Safe Use of Opioids Does Pt have an Active Cancer Diagnosis on the Problem List?: No Quality: Stroke Does the patient have a stroke diagnosis?: No Physical Exam Vital Signs: Vital Signs: Last Vital Signs Temp 97.8 F 06/27/24 07:30 Pulse 67 06/27/24 07:30 Resp 18 06/27/24 07:30 BP 134/93 H 06/27/24 07:30 Pulse Ox 96 06/27/24 07:30 O2 Del Method Nasal Cannula 06/27/24 07:30 O2 Flow Rate 2.0 06/27/24 07:30 BMI result Body Mass Index 38.6 Appearing in no acute distress head is normocephalic atraumatic eyes pupils are PERRLA sclera is anicteric mouth throat mucous membranes are intact and moist neck is supple no lymphadenopathy, no JVD noted lung sounds are clear to auscultation heart regular rate rhythm, clear S1, S2 positive bowel sounds, abdomen is soft, nontender neuro patient is alert x3, no focal deficits DS: Data Data Completed and Pending Labs on day of discharge: Laboratory Results - last 24 hr 06/26/24 06/26/24 06/26/24 16:08 16:33 19:38 WBC RBC Hgb Hct MCV MCH MCHC RDW Plt Count MPV Absolute Nucleated RBC Nucleated RBC % (auto) Sodium 137 Potassium 5.6 H Chloride 96 Carbon Dioxide 33 H Anion Gap 14 BUN 32 H Creatinine 1.44 H Estim Creat Clear Calc 42.7 Estimated GFR 36 POC Glucose 290 H 322 H Random Glucose 279 H Calcium 8.2 L 06/27/24 06/27/24 06/27/24 06:16 07:26 11:12 WBC 5.4 RBC 3.16 L Hgb 7.8 L Hct 26.3 L MCV 83.2 MCH 24.7 L MCHC 29.7 L RDW 15.4 Plt Count 203 MPV 10.8 Absolute Nucleated RBC 0.000 Nucleated RBC % (auto) 0.0 Sodium Potassium Chloride Carbon Dioxide Anion Gap BUN Creatinine 1.31 Estim Creat Clear Calc 46.9 Estimated GFR 40 POC Glucose 186 H Random Glucose Calcium 06/27/24 11:16 WBC RBC Hgb Hct MCV MCH MCHC RDW Plt Count MPV Absolute Nucleated RBC Nucleated RBC % (auto) Sodium Potassium Chloride Carbon Dioxide Anion Gap BUN Creatinine Estim Creat Clear Calc Estimated GFR POC Glucose 261 H Random Glucose Calcium Preliminary micro results at discharge 06/22/24 18:58 Blood Culture - Preliminary Blood - Venous No growth after 48 hours. 06/22/24 18:58 Blood Culture - Preliminary Blood - Venous No growth after 48 hours. Discharge Plan Discharge Anticipated Discharge Date/Time: 06/27/24 12:17 Patient Disposition: Home Health Service Discharge Diagnosis: Acute hypoxic respiratory failure secondary to viral pneumonia MARK on CKD Nondisplaced left tibial plateau fracture Acute toxic metabolic encephalopathy Referrals: Jerman Traylor PA [Physician Tax Representative] - None Discharge Medications: Continued metoprolol succinate 50 mg tablet extended release 24 hr 50 mg PO DAILY Qty: 90 5RF insulin glargine [Lantus U-100 Insulin] 100 unit/mL solution 65 unit subcut BEDTIME atorvastatin 80 mg tablet 80 mg PO BEDTIME dapagliflozin propanediol [Farxiga] 10 mg tablet 10 mg PO DAILY Eliquis 5 mg Tablet 5 mg PO BID Qty: 60 0RF omeprazole 40 mg capsule,delayed release(DR/EC) 40 mg PO DAILY@0630 triamcinolone acetonide 0.1 % cream 1 appl topical BID PRN (Reason: leg pain or swelling) duloxetine 20 mg capsule,delayed release(DR/EC) 20 mg PO DAILY trazodone 150 mg tablet 150 mg PO BEDTIME acetaminophen 500 mg Tablet 1,000 mg PO TID PRN (Reason: Pain) amiodarone 200 mg tablet 200 mg PO DAILY melatonin 5 mg tablet 5 mg PO BEDTIME aspirin 81 mg tablet,delayed release (DR/EC) 81 mg PO BEDTIME oxycodone-acetaminophen 5-325 mg tablet 1 tab PO Q6H PRN (Reason: pain) calcium carbonate 500 mg calcium (1,250 mg) tablet 500 mg PO BID gabapentin 100 mg capsule 100 mg PO TID Santyl 250 unit/gram ointment 1 appl topical DAILY clotrimazole 1 % cream 1 appl topical BID paroxetine HCl 40 mg tablet 40 mg PO DAILY nystatin 100,000 unit/gram Powder 1 appl topical BID Qty: 30 0RF Protocol: Apply to: Apply to: perenieum torsemide 20 mg tablet 20 mg PO DAILY Qty: 30 0RF amlodipine 5 mg Tablet 5 mg PO DAILY Qty: 30 0RF Protocol: Hold for SBP< HOLD for SBP < : 90 hydroxyzine HCl 25 mg tablet 25 mg PO TID levothyroxine 50 mcg tablet 50 mcg PO DAILY@0600 (DME) insulin syringe-needle U-100 1 mL 31 gauge x 5/16 syringe See Rx Instructions .ROUTE .MEDSUPPLY Qty: 10 Rx Instructions: As directed Discontinued amoxicillin-pot clavulanate 875-125 mg tablet 1 tab PO Q12H Qty: 28 0RF Discharge Orders: Discharge Order (Routine); Ordered 06/27/24 Ordered By: Serena áSnchez Diet: Advance to usual diet Activity on Discharge: As tolerated Stand Alone Forms: Patient Portal Discharge page Print Language: Green[place]ic Activity Restrictions/Additional Instructions: Topical Wound Care Recommendations: Left Lower Legs - Elevate heels off of bed surface - Cleanse with NS, pat dry. Apply Triad to periwound, apply durfiber AG to open wound bed, cover with dry gauze, ABD pad and Elastic netting. Change every other day while inpatient. Recommend follow up out patient Wound Clinic at [address] [place] [address] and to call for an appointment at time of discharge. [phone].? Left Great Toe - [place] with Betadine allow to dry. Keep open to air. Care Plan Goals: Nonweightbearing for 6 weeks to prevent displacement, follow up with Orthopedic surgery as needed Home with oxygen Health Concerns: Acute hypoxic respiratory failure secondary to viral pneumonia MARK on CKD Nondisplaced left tibial plateau fracture Acute toxic metabolic encephalopathy Plan of Treatment: Follow-up with primary care provider as needed Take all medications as prescribed Assessment: See discharge summary Discharge Date/Time: 06/27/24 14:04
[2024-06-27 12:53] LABS: Anion Gap 12 (12-20); Blood Urea Nitrogen 31 mg/dL (9-16); Calcium 8.7 mg/dL (8.4-10.2); Carbon Dioxide 34 mmol/L (22-29); Chloride 97 mmol/L (96-108); Creatinine Clr Calc Pharmacy 46.6; Estimated Glomerular Filt Rate 39; Glucose Random 261 mg/dL (60-115); Sodium 138 mmol/L (135-145)
--- NOTE | 2024-06-27 13:00 | MHC.CM.PN ---
Patient medically cleared for dc home w/ family and resumption of [facility] services. BLS transport. IMM delivered.
[2024-06-27 13:22] VITALS: O2SAT 86
[2024-06-27 13:23] VITALS: PULSE 85; PULSE 86; PULSE 94; O2SAT 84; O2SAT 87; O2SAT 93
== END 2024-06-27 14:04 | disposition home health service (06) | DRG 193 ==
LOC: HO.ED 19:15 → HO.EDOVER 21:02 → HO.S3 06-23 19:18
PROVIDERS: Internal Medicine; Physician Assistant Medical; Student in an Organized Health Care Education/Training Program; Admitting Provider Student in an Organized Health Care Education/Training Program; Emergency Provider Emergency Medicine; Visit Provider Nurse Practitioner Acute Care
DX: J12.9 Viral pneumonia, unspecified (principal); G92.8 Other toxic encephalopathy; J96.01 Acute respiratory failure with hypoxia; I13.0 Hypertensive heart and chronic kidney disease with heart failure and stage 1 through stage 4 chronic kidney disease, or unspecified chronic kidney disease; S82.145A Nondisplaced bicondylar fracture of left tibia, initial encounter for closed fracture; I50.32 Chronic diastolic (congestive) heart failure; N17.9 Acute kidney failure, unspecified; E11.22 Type 2 diabetes mellitus with diabetic chronic kidney disease; I48.0 Paroxysmal atrial fibrillation; E11.42 Type 2 diabetes mellitus with diabetic polyneuropathy; D63.1 Anemia in chronic kidney disease; G47.33 Obstructive sleep apnea (adult) (pediatric); B97.81 Human metapneumovirus as the cause of diseases classified elsewhere; W19.XXXA Unspecified fall, initial encounter; Y95 Nosocomial condition; G89.29 Other chronic pain; E78.5 Hyperlipidemia, unspecified; N18.30 Chronic kidney disease, stage 3 unspecified; I25.10 Atherosclerotic heart disease of native coronary artery without angina pectoris; Z23 Encounter for immunization; Z79.4 Long term (current) use of insulin; Z79.01 Long term (current) use of anticoagulants; Z79.890 Hormone replacement therapy; Z79.899 Other long term (current) drug therapy
CPT/HCPCS: 36415; 70450; 71045; 73564; 73610; 80048; 80076; 80202; 81001; 82140; 82565; 82607; 82746; 82803; 82947; 83540; 83605; 83735; 83880; 84145; 84484; 85025; 85027; 86850; 86900; 86901; 86923; 87040; 87633; 87635; 90656; 93005; 94660; 97162; 99285; J0692; J0696; J2060; J2405; J3370; P9047

== ENCOUNTER → 2024-06-22 18:18 | Outpatient (BNV) | payer OTHER, SELFPAY | PROVIDERS: Admitting Provider Student in an Organized Health Care Education/Training Program; Emergency Provider Emergency Medicine; Visit Provider Internal Medicine Cardiovascular Disease | DX: R94.31 Abnormal electrocardiogram [ECG] [EKG] (principal) | CPT/HCPCS: 93010 ==

== ENCOUNTER → 2024-06-22 20:56 | Outpatient (BNV) | payer OTHER, SELFPAY | PROVIDERS: Admitting Provider Student in an Organized Health Care Education/Training Program; Emergency Provider Emergency Medicine; Visit Provider Student in an Organized Health Care Education/Training Program | DX: S82.145A Nondisplaced bicondylar fracture of left tibia, initial encounter for closed fracture (principal); J18.9 Pneumonia, unspecified organism; N17.9 Acute kidney failure, unspecified; Y95 Nosocomial condition | CPT/HCPCS: 99223; 99232; 99233; 99239 ==

== ENCOUNTER → 2024-06-22 20:56 | Outpatient (BNV) | payer OTHER, SELFPAY | PROVIDERS: Admitting Provider Student in an Organized Health Care Education/Training Program; Emergency Provider Emergency Medicine | DX: S82.145A Nondisplaced bicondylar fracture of left tibia, initial encounter for closed fracture (principal) | CPT/HCPCS: 99222 ==

== ENCOUNTER 2024-06-29 06:38 | Emergency (ER) | payer OTHER, SELFPAY ==
--- NOTE | 2024-06-29 | ECG_ITS ---
Test Reason : SOB Blood Pressure : / mmHG Vent. Rate : 050 BPM Atrial Rate : 050 BPM P-R Int : 206 ms QRS Dur : 088 ms QT Int : 472 ms P-R-T Axes : 036 -27 006 degrees QTc Int : 430 ms Sinus bradycardia Low voltage QRS Borderline ECG When compared with ECG of 22-JUN-2024 18:55, No significant change was found Referred By: Generic ED Physician Electronically Signed By:TRINY SCHAFFER MD
--- NOTE | ~2024-06-29 | XR_ITS ---
EXAMINATION: XR CHEST CLINICAL INFORMATION: sob COMPARISON: X-ray dated June 22, 2024. TECHNIQUE: Frontal view of the chest was obtained. FINDINGS: Indistinct margins in the pulmonary perihilar region. No consolidation pleural effusion or pneumothorax. Cardiomediastinal silhouette appears prominent, unchanged. Multilevel thoracic spondylosis. Degenerative changes in the shoulders. XR/XR chest 1V IMPRESSION: Consider mild interstitial edema in the correct clinical settings. Cardiomegaly versus pericardial effusion. Electronically signed by: Son Brennan MD 06/29/2024 09:05 AM [facility]
[2024-06-29 06:43] VITALS: BP 124/96; BP 160/80; PULSE 54; PULSE 82; RESP 19; TEMP 36.6; O2SAT 93; O2SAT 99; BMI 46.3
[2024-06-29 06:59] LABS: MANUAL DIFF FLAG NO
[2024-06-29 07:01] LABS: Basophils Absolute Auto 0.1 X10*3/uL (0.0-0.2); Basophils Percent Auto 1.4 % (0-2); Eosinophils Absolute Auto 0.3 X10*3/uL (0.0-0.4); Eosinophils Percent Auto 6.3 % (0-4); Hematocrit 28.9 % (37.0-47.0); Hemoglobin 8.5 g/dl (12.0-16.0); Imm Gran Abs Auto 0.05 X10*3/uL (0.00-0.03); Lymphocytes Absolute Auto 1.5 X10*3/uL (1.2-4.9); Lymphocytes Percent Auto 29.9 % (20-40); Mean Corpuscular HGB Conc 29.4 g/dl (31.0-35.0); Mean Corpuscular Hemoglobin 24.2 pg (27.0-33.0); Mean Corpuscular Volume 82.3 fL (80.0-98.0); Mean Platelet Volume 9.8 fL (9.4-12.3); Monocytes Absolute Auto 0.4 X10*3/uL (0.1-1.2); Monocytes Percent Auto 8.9 % (2-11); Neutrophils Absolute Auto 2.6 x10*3/uL (2.0-8.3); Neutrophils Percent Auto 52.5 % (45-73); Platelet Count 240 X10*3/uL (160-400); Red Blood Count 3.51 X10*6/uL (4.20-5.50); Red Cell Distribution Width 15.5 % (11.0-16.0); White Blood Count 4.9 X10*3/uL (4.8-10.8)
--- NOTE | 2024-06-29 07:05 | ED_ITS ---
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 EMS reported 93% on RA and 99% on 2L. She tells me she is fine and reports she is here because her oxygen ran out at home. She then falls asleep. MD elicited complaint: shortness of breath Pertinent past history: congestive heart failure and pneumonia Onset (ago): day(s) (on and off for what is likely a month) Context: recent illness Timing: now resolved Severity: moderate Exacerbating factors: exertion and coughing Relieving factors: oxygen Known history of: congestive heart failure and recurrent pneumonia Associated symptoms: cough and sputum production Treatment prior to arrival: oxygen Related Data Home Medications ?Medication ?Instructions ?Recorded ?Confirmed insulin glargine 100 unit/mL 65 unit subcut BEDTIME 07/22/20 06/22/24 subcutaneous solution (Lantus U-100 Insulin) atorvastatin 80 mg tablet 80 mg PO BEDTIME 04/07/21 06/22/24 dapagliflozin propanediol 10 mg 10 mg PO DAILY 10/25/23 06/22/24 tablet (Farxiga) levothyroxine 50 mcg tablet 50 mcg PO DAILY@0600 11/18/23 06/22/24 duloxetine 20 mg capsule,delayed 20 mg PO DAILY 03/18/24 06/22/24 release omeprazole 40 mg capsule,delayed 40 mg PO DAILY@0630 03/18/24 06/22/24 release triamcinolone acetonide 0.1 % 1 appl topical BID PRN leg pain or 03/18/24 06/22/24 topical cream swelling insulin syringe-needle U-100 1 mL #10 ea 03/29/24 31 gauge x 12/22 trazodone 150 mg tablet 150 mg PO BEDTIME 04/06/24 06/22/24 acetaminophen 500 mg tablet 1,000 mg PO TID PRN Pain 04/19/24 06/22/24 amiodarone 200 mg tablet 200 mg PO DAILY 04/19/24 06/22/24 melatonin 5 mg tablet 5 mg PO BEDTIME sleep 04/19/24 06/22/24 aspirin 81 mg tablet,delayed 81 mg PO BEDTIME 06/11/24 06/22/24 release calcium carbonate 500 mg PO BID 06/11/24 06/22/24 clotrimazole 1 % topical cream 1 appl topical BID 06/11/24 06/22/24 collagenase clostridium histo. 250 1 appl topical DAILY 06/11/24 06/22/24 unit/gram topical ointment (Santyl) gabapentin 100 mg capsule 100 mg PO TID 06/11/24 06/22/24 oxycodone-acetaminophen 5 mg-325 1 tab PO Q6H PRN pain 06/11/24 06/22/24 mg tablet paroxetine HCl 40 mg tablet 40 mg PO DAILY 06/11/24 06/22/24 hydroxyzine HCl 25 mg tablet 25 mg PO TID 06/22/24 06/22/24 Previous Rx's ?Medication ?Instructions ?Recorded apixaban 5 mg tablet (Eliquis) 5 mg PO BID #60 tabs 11/03/23 metoprolol succinate 50 mg 50 mg PO DAILY #90 tabs 05/23/24 tablet,extended release 24 hr amlodipine 5 mg tablet 5 mg PO DAILY #30 tabs 06/20/24 nystatin 100,000 unit/gram topical 1 appl topical BID #30 grams 06/20/24 powder torsemide 20 mg tablet 20 mg PO DAILY #30 tabs 06/20/24 Allergies Allergy/AdvReac Type Severity Reaction Status Date / Time codeine [CODEINE] Allergy Intermediate HALLUCINATI Verified 06/29/24 06:50 ONS Review of Systems 2 Review of Systems: ROS unable to be obtained due to poor historian PMFSH Past Medical History Attestation statement: The following information was validated with the patient. Source: old records reviewed Medical History Leg abrasion Abuse of non-prescription analgesics Type 2 diabetes mellitus with unspecified complications Other and unspecified hyperlipidemia Essential hypertension Atherosclerotic cardiovascular disease Urgency incontinence Osteoporosis Arthritis Asthma Hypertension Fibromyalgia Diabetes mellitus Surgical History History of hernia repair Social History Social History Household Members: Other Household Members Other:: friend Housing: Apartment Do you presently have visiting nurse or other home services: Yes Unable to assess alcohol history related to: Refusing to respond Alcohol intake: never 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 Patient Tobacco Use Status: Never used Tobacco Advance Directives Date on File: 04/07/24 service: No Sexual orientation: Straight/Heterosexual Physical Exam 2 Vital Signs: Vital Signs: Last Vital Signs Temp 98.2 F 06/29/24 15:58 Pulse 56 06/29/24 15:58 Resp 20 06/29/24 15:58 BP 153/67 H 06/29/24 15:58 Pulse Ox 97 06/29/24 15:58 O2 Del Method Nasal Cannula 06/29/24 15:58 O2 Flow Rate 2 06/29/24 15:58 Oxygen Flow Rate 2 06/29/24 06:43 BMI result Body Mass Index 46.3 Appearance: Somnolent wakes to voice. Oriented X3. No acute distress. Eyes: Pupils equal, round and reactive to light. ENT: Pharynx normal. Neck: Normal inspection. Neck supple. CVS: Normal heart rate and rhythm. Pulses normal. Respiratory: No respiratory distress. Breath sounds coarse cough with diminished bases and decreased effort Abdomen: Soft and non-tender. Skin: Skin warm and dry. Normal skin color. Normal skin turgor. Extremities: 1+ symmetric lower extremity edema. L anterior shay chronic wound that has white cream on it - no surrounding erythema Neuro: Oriented X 3. No motor deficit. No sensory deficit. Course Course Course Narrative: labs at baseline, no increased O2 demands, CXR at baseline, Cr at baseline, BNP at baseline at this time will refer to CM/PT for help with placement Reevaluation(s) Reevaluation #1: staying with daughter - [employer] unable to deliver oxygen so she really doesn't have O2 Medications Administered Discontinued Medications Generic Name Dose Route Start Last Admin Trade Name Elkin PRN Reason Stop Dose Admin Acetaminophen 975 mg 06/29/24 11:21 06/29/24 11:24 Acetaminophen 325 Mg Tablet PO 06/29/24 11:22 975 mg ONCE ONE Administration Medical Decision Making Medical Decision Making [facility] Narrative: 73 yo female with PMH of CHF, CKD, ANILA, asthma, aflutter on eliquis, CAD, depression and anxiety, DM2, HLD with recurrent episodes and admission for hypoxic resp failure barely making it 2 days at home - she is back again today with c/o running out of oxygen at home. She is again at her baseline where she falls asleep during interview. Will have CM involved for O2 therapy at home, will obtain labs, repeat CXR and I strongly feel she should be in rehab if we do not find any acute changes today. Differential Diagnosis Differential Diagnoses: The differential diagnosis associated with the presentation includes chronic resp failure, increasing support at home, viral pneumonia, toxic/metabolic encephalopathy Admission/Observation Consideration of admission/observation: Escalation of care including admission/observation considered PATIENT AND FAMILY AGAIN REFUSES REHAB - SHE HAS BEEN STABLE ON O2 HERE THEY CONFIRMED SHE HAD O2 I ANTICIPATE SHE WILL RETURN AND FAIL GOING HOME Consult Healthcare Provider Management of the patient was discussed with: Mobile Application Architect Lab Data [facility] Lab Attestation statement: I reviewed the patient's lab results. 06/29/24 06:53 06/29/24 06:53 Labs: Lab Results 06/29/24 06/29/24 06/29/24 Range/Units 06:53 08:23 08:29 WBC 4.9 (4.8-10.8) X10*3/uL RBC 3.51 L (4.20-5.50) X10*6/uL Hgb 8.5 L (12.0-16.0) g/dl Hct 28.9 L (37.0-47.0) % MCV 82.3 (80.0-98.0) fL MCH 24.2 L (27.0-33.0) pg MCHC 29.4 L (31.0-35.0) g/dl RDW 15.5 (11.0-16.0) % Plt Count 240 (160-400) X10*3/uL MPV 9.8 (9.4-12.3) fL Immature Gran % (Auto) 1.0 H (0.0-0.4) % Neut % (Auto) 52.5 (45-73) % Lymph % (Auto) 29.9 (20-40) % [place] % (Auto) 8.9 (2-11) % Eos % (Auto) 6.3 H (0-4) % Baso % (Auto) 1.4 (0-2) % Lymph # (Auto) 1.5 (1.2-4.9) X10*3/uL [place] # (Auto) 0.4 (0.1-1.2) X10*3/uL Eos # (Auto) 0.3 (0.0-0.4) X10*3/uL Baso # (Auto) 0.1 (0.0-0.2) X10*3/uL Abs Immat Gran (auto) 0.05 H (0.00-0.03) X10*3/uL Absolute Neuts (auto) 2.6 (2.0-8.3) x10*3/uL Absolute Nucleated RBC 0.000 (0.0-0.012) X10*3/uL Nucleated RBC % (auto) 0.0 (0.0-0.2) /100WBC VBG pH 7.48 H (7.32-7.43) VBG pCO2 56 mmHg VBG pO2 82 mmHg VBG HCO3 42 H (22-26) mmol/L VBG O2 Saturation 97.0 % VBG Base Excess 16.7 mmol/L Sodium 138 (135-145) mmol/L Potassium 5.1 (3.3-5.1) mmol/L Chloride 96 (96-108) mmol/L Carbon Dioxide 37 H (22-29) mmol/L Anion Gap 10 L (12-20) BUN 34 H (9-16) mg/dL Creatinine 1.48 H (0.5-1.4) mg/dL Estim Creat Clear Calc 37.0 Estimated GFR 34 Random Glucose 337 H (60-115) mg/dL Lactic Acid 1.6 (0.5-2.0) mmol/L Calcium 9.0 (8.4-10.2) mg/dL Total Bilirubin 0.3 (0.0-1.0) mg/dL AST 20 (5-31) U/L ALT 12 (0-31) U/L Alkaline Phosphatase 61 (39-117) U/L Troponin I High Sens 5.1 (<3.5-17.0) ng/L B-Natriuretic Peptide 139 H (<100) pg/mL Total Protein 6.3 L (6.5-8.0) g/dL Albumin 3.2 L (3.5-5.0) g/dL Urine Color Urine Appearance Urine pH (5.0-9.0) Ur Specific [place] (1.005-1.025) Urine Protein (Neg-Trace) mg/dL Urine Glucose (UA) (Negative) mg/dL Urine Ketones (Negative) mg/dL Urine Blood (Negative) Urine Nitrite (Negative) Ur Leukocyte Esterase (Negative) Urine RBC (0-2) /HPF Urine WBC (0-5) /HPF Ur Squamous Epith Cells (0-2) /HPF Urine Bacteria (None Seen) Hyaline Casts (0-2) /LPF COVID-19 (ANN) (Negative) COVID-19 Clin Com 06/29/24 06/29/24 Range/Units 08:32 11:27 WBC (4.8-10.8) X10*3/uL RBC (4.20-5.50) X10*6/uL Hgb (12.0-16.0) g/dl Hct (37.0-47.0) % MCV (80.0-98.0) fL MCH (27.0-33.0) pg MCHC (31.0-35.0) g/dl RDW (11.0-16.0) % Plt Count (160-400) X10*3/uL MPV (9.4-12.3) fL Immature Gran % (Auto) (0.0-0.4) % Neut % (Auto) (45-73) % Lymph % (Auto) (20-40) % [place] % (Auto) (2-11) % Eos % (Auto) (0-4) % Baso % (Auto) (0-2) % Lymph # (Auto) (1.2-4.9) X10*3/uL [place] # (Auto) (0.1-1.2) X10*3/uL Eos # (Auto) (0.0-0.4) X10*3/uL Baso # (Auto) (0.0-0.2) X10*3/uL Abs Immat Gran (auto) (0.00-0.03) X10*3/uL Absolute Neuts (auto) (2.0-8.3) x10*3/uL Absolute Nucleated RBC (0.0-0.012) X10*3/uL Nucleated RBC % (auto) (0.0-0.2) /100WBC VBG pH (7.32-7.43) VBG pCO2 mmHg VBG pO2 mmHg VBG HCO3 (22-26) mmol/L VBG O2 Saturation % VBG Base Excess mmol/L Sodium (135-145) mmol/L Potassium (3.3-5.1) mmol/L Chloride (96-108) mmol/L Carbon Dioxide (22-29) mmol/L Anion Gap (12-20) BUN (9-16) mg/dL Creatinine (0.5-1.4) mg/dL Estim Creat Clear Calc Estimated GFR Random Glucose (60-115) mg/dL Lactic Acid (0.5-2.0) mmol/L Calcium (8.4-10.2) mg/dL Total Bilirubin (0.0-1.0) mg/dL AST (5-31) U/L ALT (0-31) U/L Alkaline Phosphatase (39-117) U/L Troponin I High Sens (<3.5-17.0) ng/L B-Natriuretic Peptide (<100) pg/mL Total Protein (6.5-8.0) g/dL Albumin (3.5-5.0) g/dL Urine Color Yellow Urine Appearance Clear Urine pH 5.5 (5.0-9.0) Ur Specific [place] 1.020 (1.005-1.025) Urine Protein 30 (1+) H (Neg-Trace) mg/dL Urine Glucose (UA) >=1000 H (Negative) mg/dL Urine Ketones Negative (Negative) mg/dL Urine Blood Negative (Negative) Urine Nitrite Negative (Negative) Ur Leukocyte Esterase Negative (Negative) Urine RBC 0-2 (0-2) /HPF Urine WBC 0-5 (0-5) /HPF Ur Squamous Epith Cells 0-2 (0-2) /HPF Urine Bacteria None Seen (None Seen) Hyaline Casts 0-2 (0-2) /LPF COVID-19 (ANN) Negative (Negative) COVID-19 Clin Com See Note Independent Interpretation I performed an independent interpretation of an: EKG and Plain X-Ray Interpretation: Rate: 50 Rhythm: sinus bradycardia [place]:left Normal P waves. Normal PUSHPA. Normal QRS complex. ST T wave : flat t waves V1 and V2 qTC: 430 prior studies: no acute ischemia The study has been interpreted contemporaneously by me. . Radiology Impression Discussion of test interpretation with radiology: I have reviewed the radiologist's reading. Independent Historian Clinical information obtained from an independent historian. History obtained from or confirmed by: EMS External Record Review External record reviewed: Inpatient record and Outpatient record Discharge Plan Discharge Clinical Impression: Adult failure to thrive, Chronic hypoxemic respiratory failure Patient Disposition: Home, Self-Care Instructions: Chronic Respiratory Failure (DC) Additional Instructions: you were offered rehab but refused please return for any worsening symptoms or concerns. Prescriptions: No Action metoprolol succinate 50 mg tablet extended release 24 hr 50 mg PO DAILY Qty: 90 5RF insulin glargine [Lantus U-100 Insulin] 100 unit/mL solution 65 unit subcut BEDTIME atorvastatin 80 mg tablet 80 mg PO BEDTIME dapagliflozin propanediol [Farxiga] 10 mg tablet 10 mg PO DAILY Eliquis 5 mg Tablet 5 mg PO BID Qty: 60 0RF omeprazole 40 mg capsule,delayed release(DR/EC) 40 mg PO DAILY@0630 triamcinolone acetonide 0.1 % cream 1 appl topical BID PRN (Reason: leg pain or swelling) duloxetine 20 mg capsule,delayed release(DR/EC) 20 mg PO DAILY trazodone 150 mg tablet 150 mg PO BEDTIME acetaminophen 500 mg Tablet 1,000 mg PO TID PRN (Reason: Pain) amiodarone 200 mg tablet 200 mg PO DAILY melatonin 5 mg tablet 5 mg PO BEDTIME aspirin 81 mg tablet,delayed release (DR/EC) 81 mg PO BEDTIME oxycodone-acetaminophen 5-325 mg tablet 1 tab PO Q6H PRN (Reason: pain) calcium carbonate 500 mg calcium (1,250 mg) tablet 500 mg PO BID gabapentin 100 mg capsule 100 mg PO TID Santyl 250 unit/gram ointment 1 appl topical DAILY clotrimazole 1 % cream 1 appl topical BID paroxetine HCl 40 mg tablet 40 mg PO DAILY nystatin 100,000 unit/gram Powder 1 appl topical BID Qty: 30 0RF Protocol: Apply to: Apply to: jorden torsemide 20 mg tablet 20 mg PO DAILY Qty: 30 0RF amlodipine 5 mg Tablet 5 mg PO DAILY Qty: 30 0RF Protocol: Hold for SBP< HOLD for SBP < : 90 hydroxyzine HCl 25 mg tablet 25 mg PO TID levothyroxine 50 mcg tablet 50 mcg PO DAILY@0600 (DME) insulin syringe-needle U-100 1 mL 31 gauge x 5/16 syringe See Rx Instructions .ROUTE .MEDSUPPLY Qty: 10 Rx Instructions: As directed Referrals: [facility] [Other] [facility] [Other] (OXYGEN AND CONCENTRATOR WILL BE DELIVERED BETWEEN 245-3PM TODAY. ) Interventions: ED Discharge Assessment Last Done: 06/29/24 15:58 Discharge Date/Time: 06/29/24 16:00 Print Language: Burkinan
[2024-06-29 07:19] LABS: Alanine Aminotransferase 12 U/L (0-31); Albumin Level 3.2 g/dL (3.5-5.0); Anion Gap 10 (12-20); Aspartate Amino Transferase 20 U/L (5-31); Bilirubin Total 0.3 mg/dL (0.0-1.0); Blood Urea Nitrogen 34 mg/dL (9-16); Carbon Dioxide 37 mmol/L (22-29); Chloride 96 mmol/L (96-108); Estimated Glomerular Filt Rate 34; Glucose Random 337 mg/dL (60-115); Potassium 5.1 mmol/L (3.3-5.1); Sodium 138 mmol/L (135-145); Total Protein 6.3 g/dL (6.5-8.0)
[2024-06-29 07:21] LABS: B Type Natriuretic Peptide 139 pg/mL (<100)
[2024-06-29 07:24] LABS: Troponin-I High Sensitivity 5.1 ng/L (<3.5-17.0)
[2024-06-29 07:34] LABS: Alkaline Phosphatase 61 U/L (39-117)
[2024-06-29 08:28] VITALS: BP 138/40; PULSE 52; RESP 17; TEMP 36.6; O2SAT 100
[2024-06-29 08:33] LABS: Venous Blood Gas Refer to POC result
[2024-06-29 08:33] LABS: VBG Base Excess 16.7 mmol/L; VBG HCO3 42 mmol/L (22-26); VBG pCO2 56 mmHg; VBG pH 7.48 (7.32-7.43); VBG pO2 82 mmHg
[2024-06-29 08:47] LABS: Lactic Acid 1.6 mmol/L (0.5-2.0)
[2024-06-29 08:49] LABS: Appearance Urine Clear; Color Urine Yellow; Glucose Urine UA >=1000 mg/dL (Negative); Leukocyte Esterase Urine Negative (Negative); Nitrite Urine Negative (Negative); PH 5.5 (5.0-9.0); UMIC TRIGGER UACC YES; Urine Blood Negative (Negative); Urine Ketones Negative (Negative); Urine Protein 30 (1+) mg/dL (Neg-Trace)
--- NOTE | 2024-06-29 08:49 | PC.NURSE ---
pt somnolent. wakes to someone saying her name loudly. Pt minimally responsive to physical non-painful stimuli. On 2L o2 which is her baseline though it has been reported that she doesn't currently have any oxygen at home.
[2024-06-29 09:01] LABS: Bacteria Urine None Seen (None Seen); Hyaline Casts Urine 0-2 /LPF (0-2); RBC Urine 0-2 /HPF (0-2); Squamous Epithelial Cell Urine 0-2 /HPF (0-2); WBC Urine 0-5 /HPF (0-5)
--- NOTE | 2024-06-29 09:46 | MHC.CM.ED ---
Addendum entered by Mayda Botello 06/29/24 11:01: Per RT Kemar, [facility] will deliver concentrator and oxygen to Alie's house between 245-3pm. Julia COLEMAN booked for 3pm. Patient, daughter Britni, Bing FISHER and Melinda curtis. Original Note: Received case management consult from Dr Barnard. Patient came to the ER this morning due to shortness of breath. Patient reports no oxygen at home. Patient was d/c'd from [facility] with resumption of [facility] and new oxygen concentrator and tanks from [facility]. Spoke with patient's daughter Britni and granddaughter Marlene via telephone at [phone]. Patient did not have oxygen at home prior to last inpatient admission. She only had a cpap that she was non-compliant with. Patient was d/c'd to another daughter's house: Alie: [address] [facility] delivered concentrator to patient's home address of [facility] in [place]. Britni attempted to call [facility] but has not received a call back. No one in the familyhas the ability to transport the concentrator or oxygen to Alie's home. RT Kemar made aware and asked to contact [facility] to see if this can be arranged. Physical therapy recommended short term rehab on 06/26. Patient and family refuse STR because last time patient was at a SNF, she fell. Family was not contacted about the fall. Patient told family about fall and then family requested transfer to ER at that time. At this time, patient and family still continue to refuse STR. Dr Barnard aware. Continue to monitor for d/c needs.
[2024-06-29] MEDS: Acetaminophen 325 MG TABLET 975 MG PO (11:24)
--- NOTE | 2024-06-29 11:31 | PC.NURSE ---
pt noted to be groaning/seemingly uncomfortable while laying in hospital bed. pt verbalizing increase in LLE pain. denies any numbness/tingling. one time dose of tylenol ordered/administered. effectiveness pending. covid swab obtained/sent to lab by [facility]. pt otherwise appears to remain in no respiratory distress. on 2L via NC. no sob/wob noted. pt positioned upright. respirations even/unlabored. bed alarm turned on for safety precautions. plan of care ongoing. call jacome placed within reach.
[2024-06-29 11:47] LABS: IDNOW Serial# 08D9AD1C
[2024-06-29 11:48] LABS: COVID-19 Test Negative (Negative)
[2024-06-29 14:40] VITALS: BP 153/67; PULSE 56; RESP 19; TEMP 36.8; O2SAT 97
--- NOTE | 2024-06-29 14:42 | PC.NURSE ---
Incontinent care provided. pt repositioned for comfort. awaiting transport to home.
[2024-06-29 15:58] VITALS: BP 153/67; PULSE 56; RESP 20; TEMP 36.8; O2SAT 97
== END 2024-06-29 16:00 | disposition home or self-care (01) ==
PROVIDERS: Emergency Provider Emergency Medicine; PCP Registered Nurse
DX: J96.11 Chronic respiratory failure with hypoxia (principal); R62.7 Adult failure to thrive; R05.9 Cough, unspecified; I25.10 Atherosclerotic heart disease of native coronary artery without angina pectoris; R00.1 Bradycardia, unspecified; E11.9 Type 2 diabetes mellitus without complications; Z79.01 Long term (current) use of anticoagulants; Z79.899 Other long term (current) drug therapy; Z11.52 Encounter for screening for COVID-19
CPT/HCPCS: 36415; 51701; 71045; 80053; 81001; 82803; 83605; 83880; 84484; 85025; 87040; 87635; 93005; 99284; 99285

== ENCOUNTER → 2024-06-29 06:54 | Outpatient (BNV) | payer OTHER, SELFPAY | PROVIDERS: Emergency Provider Emergency Medicine; Visit Provider Internal Medicine Cardiovascular Disease | DX: R00.1 Bradycardia, unspecified (principal) | CPT/HCPCS: 93010 ==

== ENCOUNTER → 2024-06-29 08:42 | Outpatient (BNV) | payer OTHER, SELFPAY | PROVIDERS: Emergency Provider Emergency Medicine; Visit Provider Radiology Diagnostic Radiology | DX: R06.02 Shortness of breath (principal) | CPT/HCPCS: 71045 ==

== ENCOUNTER 2024-07-04 12:53 | Outpatient (REF) | payer OTHER, SELFPAY | END 2024-07-04 12:54 | disposition home or self-care (01) | LOC: HO.HOSX 12:53 | PROVIDERS: Visit Provider Physician Assistant | DX: Z13.89 Encounter for screening for other disorder (principal) ==

== ENCOUNTER 2024-07-06 01:19 | Emergency (ER) | payer OTHER, SELFPAY ==
[2024-07-06 01:31] LABS: Glucose, Whole Blood 459 mg/dL (60-115)
[2024-07-06 01:35] VITALS: BP 105/42; BP 126/74; PULSE 47; PULSE 60; RESP 20; TEMP 36.6; O2SAT 98; BMI 40.5
[2024-07-06 02:18] LABS: MANUAL DIFF FLAG NO
[2024-07-06 02:21] LABS: Venous Blood Gas Refer to POC result
[2024-07-06 02:21] LABS: Basophils Absolute Auto 0.1 X10*3/uL (0.0-0.2); Basophils Percent Auto 1.7 % (0-2); Eosinophils Absolute Auto 0.2 X10*3/uL (0.0-0.4); Eosinophils Percent Auto 4.9 % (0-4); Hematocrit 25.3 % (37.0-47.0); Hemoglobin 7.5 g/dl (12.0-16.0); Imm Gran Abs Auto 0.02 X10*3/uL (0.00-0.03); Imm Gran Pct Auto 0.5 % (0.0-0.4); Lymphocytes Absolute Auto 1.3 X10*3/uL (1.2-4.9); Lymphocytes Percent Auto 31.4 % (20-40); Mean Corpuscular HGB Conc 29.6 g/dl (31.0-35.0); Mean Corpuscular Volume 77.6 fL (80.0-98.0); Mean Platelet Volume 10.5 fL (9.4-12.3); Monocytes Absolute Auto 0.6 X10*3/uL (0.1-1.2); Monocytes Percent Auto 13.6 % (2-11); Neutrophils Percent Auto 47.9 % (45-73); Platelet Count 228 X10*3/uL (160-400); Red Blood Count 3.26 X10*6/uL (4.20-5.50); White Blood Count 4.1 X10*3/uL (4.8-10.8)
[2024-07-06 02:27] LABS: VBG Base Excess 17.3 mmol/L; VBG HCO3 40 mmol/L (22-26); VBG pCO2 44 mmHg; VBG pH 7.57 (7.32-7.43); VBG pO2 200 mmHg
[2024-07-06 02:47] LABS: Alanine Aminotransferase 11 U/L (0-31); Alkaline Phosphatase 61 U/L (39-117); Anion Gap 15 (12-20); Aspartate Amino Transferase 29 U/L (5-31); Beta-Hydroxybutyrate 0.09 mmol/L (0.02-0.27); Bilirubin Total 0.3 mg/dL (0.0-1.0); Blood Urea Nitrogen 41 mg/dL (9-16); Calcium 8.2 mg/dL (8.4-10.2); Carbon Dioxide 32 mmol/L (22-29); Chloride 92 mmol/L (96-108); Creatinine Clr Calc Pharmacy 23.2; Estimated Glomerular Filt Rate 20; Glucose Random 451 mg/dL (60-115); Sodium 134 mmol/L (135-145); Total Protein 6.3 g/dL (6.5-8.0)
[2024-07-06] MEDS: 0.9 % Sodium Chloride 1,000 ML 999 ML IV ×2 (03:00→06:33)
[2024-07-06] MEDS: Insulin Lispro 100 UNIT/ML 3 ML VIAL 12 UNIT SUBCUT (03:00)
--- NOTE | 2024-07-06 03:20 | ED.GENADULT ---
HPI - General Adult General Chief complaint: Recheck/Abnormal Lab/Rx Stated complaint: Hyperglycemic, stable now Time Seen by Provider: 07/06/24 02:48 Source: patient Mode of arrival: ambulatory Limitations: no limitations History of Present Illness ED Provider: HPI narrative: Patient is diabetic had heavy meal today blood sugar been on the higher side at 16:00 it was 409 so patient took her65 units Lantus given by visiting nurse. Patient used to be Trulicity in the past along with Lantus but blood sugar was dropping too much so not taking Trulicity anymore but for last few days patient has been having eating heavy prior to arrival daughter check the blood sugar was reading high hence brought the patient here no nausea no vomiting abdominal pain patient is feeling okay otherwise Related Data Home Medications ?Medication ?Instructions ?Recorded ?Confirmed insulin glargine 100 unit/mL 65 unit subcut BEDTIME 07/22/20 06/22/24 subcutaneous solution (Lantus U-100 Insulin) atorvastatin 80 mg tablet 80 mg PO BEDTIME 04/07/21 06/22/24 dapagliflozin propanediol 10 mg 10 mg PO DAILY 10/25/23 06/22/24 tablet (Farxiga) levothyroxine 50 mcg tablet 50 mcg PO DAILY@0600 11/18/23 06/22/24 duloxetine 20 mg capsule,delayed 20 mg PO DAILY 03/18/24 06/22/24 release omeprazole 40 mg capsule,delayed 40 mg PO DAILY@0630 03/18/24 06/22/24 release triamcinolone acetonide 0.1 % 1 appl topical BID PRN leg pain or 03/18/24 06/22/24 topical cream swelling insulin syringe-needle U-100 1 mL #10 ea 03/29/24 31 gauge x 16 trazodone 150 mg tablet 150 mg PO BEDTIME 04/06/24 06/22/24 acetaminophen 500 mg tablet 1,000 mg PO TID PRN Pain 04/19/24 06/22/24 amiodarone 200 mg tablet 200 mg PO DAILY 04/19/24 06/22/24 melatonin 5 mg tablet 5 mg PO BEDTIME sleep 04/19/24 06/22/24 aspirin 81 mg tablet,delayed 81 mg PO BEDTIME 06/11/24 06/22/24 release calcium carbonate 500 mg PO BID 06/11/24 06/22/24 clotrimazole 1 % topical cream 1 appl topical BID 06/11/24 06/22/24 collagenase clostridium histo. 250 1 appl topical DAILY 06/11/24 06/22/24 unit/gram topical ointment (Santyl) gabapentin 100 mg capsule 100 mg PO TID 06/11/24 06/22/24 oxycodone-acetaminophen 5 mg-325 1 tab PO Q6H PRN pain 06/11/24 06/22/24 mg tablet paroxetine HCl 40 mg tablet 40 mg PO DAILY 06/11/24 06/22/24 hydroxyzine HCl 25 mg tablet 25 mg PO TID 06/22/24 06/22/24 Previous Rx's ?Medication ?Instructions ?Recorded apixaban 5 mg tablet (Eliquis) 5 mg PO BID #60 tabs 11/03/23 metoprolol succinate 50 mg 50 mg PO DAILY #90 tabs 05/23/24 tablet,extended release 24 hr amlodipine 5 mg tablet 5 mg PO DAILY #30 tabs 06/20/24 nystatin 100,000 unit/gram topical 1 appl topical BID #30 grams 06/20/24 powder torsemide 20 mg tablet 20 mg PO DAILY #30 tabs 06/20/24 Allergies Allergy/AdvReac Type Severity Reaction Status Date / Time codeine [CODEINE] Allergy Intermediate HALLUCINATI Verified 07/06/24 01:42 ONS Review of Systems Review of Systems: Yes all other systems are reviewed and are negative PMFSH Past Medical History Medical History Leg abrasion Abuse of non-prescription analgesics Type 2 diabetes mellitus with unspecified complications Other and unspecified hyperlipidemia Essential hypertension Atherosclerotic cardiovascular disease Urgency incontinence Osteoporosis Arthritis Asthma Hypertension Fibromyalgia Diabetes mellitus Surgical History History of hernia repair Social History Social History Household Members: Other Household Members Other:: friend Housing: Apartment Do you presently have visiting nurse or other home services: Yes Unable to assess alcohol history related to: Refusing to respond Alcohol intake: never 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 Patient Tobacco Use Status: Never used Tobacco Smoked in Last 30 Days: No Use of substances other than those prescribed or required for medical reasons: No Advance Directives: Yes Advance Directives on File: Yes Advance Directives Date on File: 04/07/24 Do you have a plan to hurt others: No Plan service: No Sexual orientation: Straight/Heterosexual Physical Exam ED Vital Signs: Vital Signs - 24 hr 07/06/24 01:35 07/06/24 04:53 07/06/24 06:36 Temperature 97.9 F 97.4 F 98.2 F Pulse Rate 47 L 48 L 50 Respiratory Rate 20 19 12 Blood Pressure 105/42 L 112/40 L 121/60 Pulse Oximetry 98 99 95 Oxygen Delivery Method Nasal Cannula Room Air Nasal Cannula Oxygen Flow Rate 2 07/06/24 07:17 Temperature 97.6 F Pulse Rate 51 Respiratory Rate 16 Blood Pressure 99/64 Pulse Oximetry 97 Oxygen Delivery Method Nasal Cannula Oxygen Flow Rate 2 BMI result Body Mass Index 40.5 Appearance: Alert. Oriented X3. No acute distress. Eyes: PERRLA, No Nystagmus ENT: Pharynx normal. Oral Mucosa dry Neck: Normal inspection. Neck supple. CVS: Normal heart rate and rhythm. Pulses normal. Respiratory: No respiratory distress. Equal air entry bilateral, no wheezing/rales/rhonchi Abdomen: Soft and nontender. Bowel sounds are present, no mass palpable, no CVA tenderness Skin: Skin warm and dry. Normal skin color. Normal skin turgor. Extremities: No lower extremity edema. No calf tenderness Neuro: Oriented X 3. No motor deficit. No sensory deficit.No cerebellar signs , cranial nerves II-XII intact Medications Administered Discontinued Medications Generic Name Dose Route Start Last Admin Trade Name Freq PRN Reason Stop Dose Admin Sodium Chloride 1,000 mls @ 999 mls/hr 07/06/24 02:49 07/06/24 03:00 Ns IV 07/06/24 03:49 999 mls/hr .Q1H1M ONE Administration Sodium Chloride 1,000 mls @ 999 mls/hr 07/06/24 04:04 07/06/24 06:33 Ns IV 07/06/24 05:04 999 mls/hr .Q1H1M ONE Administration Insulin Human Lispro 12 unit 07/06/24 02:49 07/06/24 03:00 Insulin Lispro 100 Unit/Ml 3 Ml Vial SUBCUT 07/06/24 02:50 12 unit ONCE ONE Administration Medical Decision Making Medical Decision Making [facility] Narrative: Patient with type 2 diabetes uncontrolled noncompliant with diet also has CKD comes here for elevated blood sugar after noncompliant to diet improved during stay in the ER with IV hydration last blood sugar was 206 patient was given 2 L of fluids feeling much better 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 07/06/24 02:14 07/06/24 02:14 Labs: Lab Results 07/06/24 07/06/24 07/06/24 Range/Units 01:26 02:14 02:22 WBC 4.1 L (4.8-10.8) X10*3/uL RBC 3.26 L (4.20-5.50) X10*6/uL Hgb 7.5 L (12.0-16.0) g/dl Hct 25.3 L (37.0-47.0) % MCV 77.6 L (80.0-98.0) fL MCH 23.0 L (27.0-33.0) pg MCHC 29.6 L (31.0-35.0) g/dl RDW 15.0 (11.0-16.0) % Plt Count 228 (160-400) X10*3/uL MPV 10.5 (9.4-12.3) fL Immature Gran % (Auto) 0.5 H (0.0-0.4) % Neut % (Auto) 47.9 (45-73) % Lymph % (Auto) 31.4 (20-40) % Kimble % (Auto) 13.6 H (2-11) % Eos % (Auto) 4.9 H (0-4) % Baso % (Auto) 1.7 (0-2) % Lymph # (Auto) 1.3 (1.2-4.9) X10*3/uL Kimble # (Auto) 0.6 (0.1-1.2) X10*3/uL Eos # (Auto) 0.2 (0.0-0.4) X10*3/uL Baso # (Auto) 0.1 (0.0-0.2) X10*3/uL Abs Immat Gran (auto) 0.02 (0.00-0.03) X10*3/uL Absolute Neuts (auto) 2.0 (2.0-8.3) x10*3/uL Absolute Nucleated RBC 0.000 (0.0-0.012) X10*3/uL Nucleated RBC % (auto) 0.0 (0.0-0.2) /100WBC VBG pH 7.57 H (7.32-7.43) VBG pCO2 44 mmHg VBG pO2 200 mmHg VBG HCO3 40 H (22-26) mmol/L VBG O2 Saturation Not Reportable VBG Base Excess 17.3 mmol/L Sodium 134 L (135-145) mmol/L Potassium 5.0 (3.3-5.1) mmol/L Chloride 92 L (96-108) mmol/L Carbon Dioxide 32 H (22-29) mmol/L Anion Gap 15 (12-20) BUN 41 H (9-16) mg/dL Creatinine 2.41 H (0.5-1.4) mg/dL Estim Creat Clear Calc 23.2 Estimated GFR 20 POC Glucose 459 H* (60-115) mg/dL Random Glucose 451 H* (60-115) mg/dL Calcium 8.2 L D (8.4-10.2) mg/dL Total Bilirubin 0.3 (0.0-1.0) mg/dL AST 29 (5-31) U/L ALT 11 (0-31) U/L Alkaline Phosphatase 61 (39-117) U/L Total Protein 6.3 L (6.5-8.0) g/dL Albumin 3.0 L (3.5-5.0) g/dL Beta-Hydroxybutyrate 0.09 (0.02-0.27) mmol/L 07/06/24 07/06/24 Range/Units 06:15 07:11 WBC (4.8-10.8) X10*3/uL RBC (4.20-5.50) X10*6/uL Hgb (12.0-16.0) g/dl Hct (37.0-47.0) % MCV (80.0-98.0) fL MCH (27.0-33.0) pg MCHC (31.0-35.0) g/dl RDW (11.0-16.0) % Plt Count (160-400) X10*3/uL MPV (9.4-12.3) fL Immature Gran % (Auto) (0.0-0.4) % Neut % (Auto) (45-73) % Lymph % (Auto) (20-40) % Kimble % (Auto) (2-11) % Eos % (Auto) (0-4) % Baso % (Auto) (0-2) % Lymph # (Auto) (1.2-4.9) X10*3/uL Kimble # (Auto) (0.1-1.2) X10*3/uL Eos # (Auto) (0.0-0.4) X10*3/uL Baso # (Auto) (0.0-0.2) X10*3/uL Abs Immat Gran (auto) (0.00-0.03) X10*3/uL Absolute Neuts (auto) (2.0-8.3) x10*3/uL Absolute Nucleated RBC (0.0-0.012) X10*3/uL Nucleated RBC % (auto) (0.0-0.2) /100WBC VBG pH (7.32-7.43) VBG pCO2 mmHg VBG pO2 mmHg VBG HCO3 (22-26) mmol/L VBG O2 Saturation VBG Base Excess mmol/L Sodium (135-145) mmol/L Potassium (3.3-5.1) mmol/L Chloride (96-108) mmol/L Carbon Dioxide (22-29) mmol/L Anion Gap (12-20) BUN (9-16) mg/dL Creatinine (0.5-1.4) mg/dL Estim Creat Clear Calc Estimated GFR POC Glucose 244 H 206 H (60-115) mg/dL Random Glucose (60-115) mg/dL Calcium (8.4-10.2) mg/dL Total Bilirubin (0.0-1.0) mg/dL AST (5-31) U/L ALT (0-31) U/L Alkaline Phosphatase (39-117) U/L Total Protein (6.5-8.0) g/dL Albumin (3.5-5.0) g/dL Beta-Hydroxybutyrate (0.02-0.27) mmol/L Discharge Plan Discharge Clinical Impression: Hyperglycemia due to type 2 diabetes mellitus Patient Disposition: Home, Self-Care Instructions: Diabetic Hyperglycemia (ED) Additional Instructions: Diet-controlled as advised Take your insulin as prescribed Prescriptions: No Action metoprolol succinate 50 mg tablet extended release 24 hr 50 mg PO DAILY Qty: 90 5RF insulin glargine [Lantus U-100 Insulin] 100 unit/mL solution 65 unit subcut BEDTIME atorvastatin 80 mg tablet 80 mg PO BEDTIME dapagliflozin propanediol [Farxiga] 10 mg tablet 10 mg PO DAILY Eliquis 5 mg Tablet 5 mg PO BID Qty: 60 0RF omeprazole 40 mg capsule,delayed release(DR/EC) 40 mg PO DAILY@0630 triamcinolone acetonide 0.1 % cream 1 appl topical BID PRN (Reason: leg pain or swelling) duloxetine 20 mg capsule,delayed release(DR/EC) 20 mg PO DAILY trazodone 150 mg tablet 150 mg PO BEDTIME acetaminophen 500 mg Tablet 1,000 mg PO TID PRN (Reason: Pain) amiodarone 200 mg tablet 200 mg PO DAILY melatonin 5 mg tablet 5 mg PO BEDTIME aspirin 81 mg tablet,delayed release (DR/EC) 81 mg PO BEDTIME oxycodone-acetaminophen 5-325 mg tablet 1 tab PO Q6H PRN (Reason: pain) calcium carbonate 500 mg calcium (1,250 mg) tablet 500 mg PO BID gabapentin 100 mg capsule 100 mg PO TID Santyl 250 unit/gram ointment 1 appl topical DAILY clotrimazole 1 % cream 1 appl topical BID paroxetine HCl 40 mg tablet 40 mg PO DAILY nystatin 100,000 unit/gram Powder 1 appl topical BID Qty: 30 0RF Protocol: Apply to: Apply to: perenieum torsemide 20 mg tablet 20 mg PO DAILY Qty: 30 0RF amlodipine 5 mg Tablet 5 mg PO DAILY Qty: 30 0RF Protocol: Hold for SBP< HOLD for SBP < : 90 hydroxyzine HCl 25 mg tablet 25 mg PO TID levothyroxine 50 mcg tablet 50 mcg PO DAILY@0600 (DME) insulin syringe-needle U-100 1 mL 31 gauge x 5/16 syringe See Rx Instructions .ROUTE .MEDSUPPLY Qty: 10 Rx Instructions: As directed Print Language: Vietnamese
[2024-07-06 04:53] VITALS: BP 112/40; PULSE 48; RESP 19; TEMP 36.3; O2SAT 99
[2024-07-06 06:19] LABS: Glucose, Whole Blood 244 mg/dL (60-115)
[2024-07-06 06:36] VITALS: BP 121/60; PULSE 50; RESP 12; TEMP 36.8; O2SAT 95
--- NOTE | 2024-07-06 06:52 | PC.NURSE ---
Placed called to daughter Alie to inform her PT is ready for peanut picker [phone]. No answer, left message
[2024-07-06 07:16] LABS: Glucose, Whole Blood 206 mg/dL (60-115)
[2024-07-06 07:17] VITALS: BP 99/64; PULSE 51; RESP 16; TEMP 36.4; O2SAT 97
[2024-07-06 10:51] VITALS: BP 114/52; PULSE 50; RESP 18; TEMP 36.8; O2SAT 98
[2024-07-06 10:52] VITALS: BP 114/52; PULSE 50; RESP 18; TEMP 36.8; O2SAT 98
== END 2024-07-06 11:00 | disposition home or self-care (01) ==
PROVIDERS: Emergency Provider Internal Medicine
DX: E11.65 Type 2 diabetes mellitus with hyperglycemia (principal); I10 Essential (primary) hypertension; E78.5 Hyperlipidemia, unspecified; J45.909 Unspecified asthma, uncomplicated; Z79.4 Long term (current) use of insulin; Z79.02 Long term (current) use of antithrombotics/antiplatelets; Z79.899 Other long term (current) drug therapy; Z79.82 Long term (current) use of aspirin; Z79.01 Long term (current) use of anticoagulants
CPT/HCPCS: 36415; 80053; 82010; 82803; 82947; 85025; 96360; 96361; 99284

== ENCOUNTER 2024-08-02 14:41 | Inpatient (IN) | payer OTHER, SELFPAY ==
[2024-08-02] VITALS (11 sets, daily range): BP systolic 91–140; BP diastolic 35–79; PULSE 37–47; RESP 18–24; TEMP 35.5–36.8; O2SAT 94–100; BMI 39.4
--- NOTE | ~2024-08-02 | XR_ITS ---
EXAMINATION: XR CHEST CLINICAL INFORMATION: Altered mental status and cough. COMPARISON: Prior chest radiographs, most recently 06/29/2024. TECHNIQUE: An AP portable upright view of the chest was obtained. FINDINGS: The patient is somewhat rotated. There is cardiomegaly. There is retrocardiac airspace disease, with a partially obscured left hemidiaphragm. There is linear atelectasis within the upper to mid left lung. The right lung is relatively clear. No pleural effusion or pneumothorax is seen. There is no acute osseous abnormality. XR/XR chest 1V IMPRESSION: There is retrocardiac airspace disease, and linear scar/subsegmental atelectasis is seen within the upper to mid left lung. Recommend short-term follow-up chest radiographs to ensure clearance and exclude the possibility of underlying obstructive process. Electronically signed by: Frank Singh MD 08/02/2024 03:43 PM [facility]
--- NOTE | ~2024-08-02 | CT_ITS ---
EXAMINATION: CT CHEST WITHOUT CONTRAST CLINICAL INFORMATION: Abnormal chest x-ray with shortness of breath COMPARISON: Chest radiograph earlier today: There is retrocardiac airspace disease, and linear scar/subsegmental atelectasis is seen within the upper to mid left lung. Recommend short-term follow-up chest radiographs to ensure clearance and exclude the possibility of underlying obstructive process. CT chest 08/15/2017 TECHNIQUE: Multidetector volumetric CT imaging of the chest was done. Axial MIP volume rendering provided. Sagittal and coronal reformatted images were obtained. This CT examination was performed using dose optimization techniques as appropriate, variously including the following: *Automated exposure control *Adjustment of mA and/or kV according to patient size (this includes techniques or standardized protocols for targeted exams where dose is matched to indication/reason for exam; i.e. extremities or head) *Use of iterative reconstruction technique DLP: 579 mGy-cm FINDINGS: There is severe motion artifact degrading detail LUNGS AND PLEURA: There is bibasilar atelectasis, left greater than right. Infectious etiology cannot be excluded on the left. A small left pleural effusion is present. No right effusion. MEDIASTINUM: There is moderate to marked cardiac enlargement . No mediastinal or hilar lymphadenopathy. CORONARY ARTERY CALCIFICATION: Moderate to marked AXILLA: No lymphadenopathy. UPPER ABDOMEN: Spleen is mildly enlarged at 13 cm. OSSEOUS STRUCTURES: Degenerative changes are present in the spine. No bony destructive lesions. CT/CT chest wo IV con IMPRESSION: 1. Bibasilar atelectasis, left greater than right. Infectious etiology cannot be excluded on the left. 2. Small left pleural effusion. 3. Moderate to marked cardiac enlargement. 4. Mild splenomegaly. Fleischner guidelines were followed. Electronically signed by: Evangelist Kolb MD 08/02/2024 06:45 PM [facility]
--- NOTE | 2024-08-02 14:43 | ECG_ITS ---
Test Reason : ams Blood Pressure : / mmHG Vent. Rate : 042 BPM Atrial Rate : 042 BPM P-R Int : 196 ms QRS Dur : 088 ms QT Int : 530 ms P-R-T Axes : 014 001 027 degrees QTc Int : 442 ms Marked sinus bradycardia Low voltage QRS Possible Anterolateral infarct , age undetermined Abnormal ECG When compared with ECG of 29-JUN-2024 06:54, No significant change was found Referred By: Riaz Mccall Electronically Signed By:Asif Zhao
--- NOTE | 2024-08-02 14:51 | ED_ITS ---
HPI - General Adult General Chief complaint: Altered Mental Status Stated complaint: AMS/ Hyperglycemic. POC= 563 per ems Time Seen by Provider: 08/02/24 14:43 Source: patient and EMS Mode of arrival: EMS Limitations: no limitations History of Present Illness ED Provider: CARLOS Mccall HPI narrative: 74-year-old female history of obesity, hypertension, diabetes, CKD, CHF, opiate dependence, coronary artery disease, cystocele, atrial arrhythmia, bradycardia, on anticoagulation, asthma, ANILA, depression, presenting to the emergency department with high blood sugar, shortness of breath, and itchiness in her private region for the past 2 days. He tells me she is very itchy and it horowitz when she pees. She reports shortness of breath is at all times she wears 3 L via nasal cannula at all times and she is saturating 100% when she comes in however she reports she feels more short of breath than usual. She denies associated fevers, chills, chest pain, nausea, vomiting, abdominal pain, headache, vision changes, dizziness and weakness Related Data Home Medications ?Medication ?Instructions ?Recorded ?Confirmed insulin glargine 100 unit/mL 65 unit subcut BEDTIME 07/22/20 06/22/24 subcutaneous solution (Lantus U-100 Insulin) atorvastatin 80 mg tablet 80 mg PO BEDTIME 04/07/21 06/22/24 dapagliflozin propanediol 10 mg 10 mg PO DAILY 10/25/23 06/22/24 tablet (Farxiga) levothyroxine 50 mcg tablet 50 mcg PO DAILY@0600 11/18/23 06/22/24 duloxetine 20 mg capsule,delayed 20 mg PO DAILY 03/18/24 06/22/24 release omeprazole 40 mg capsule,delayed 40 mg PO DAILY@0630 03/18/24 06/22/24 release triamcinolone acetonide 0.1 % 1 appl topical BID PRN leg pain or 03/18/24 06/22/24 topical cream swelling insulin syringe-needle U-100 1 mL #10 ea 03/29/24 31 gauge x 12/22 trazodone 150 mg tablet 150 mg PO BEDTIME 04/06/24 06/22/24 acetaminophen 500 mg tablet 1,000 mg PO TID PRN Pain 04/19/24 06/22/24 amiodarone 200 mg tablet 200 mg PO DAILY 04/19/24 06/22/24 melatonin 5 mg tablet 5 mg PO BEDTIME sleep 04/19/24 06/22/24 aspirin 81 mg tablet,delayed 81 mg PO BEDTIME 06/11/24 06/22/24 release calcium carbonate 500 mg PO BID 06/11/24 06/22/24 clotrimazole 1 % topical cream 1 appl topical BID 06/11/24 06/22/24 collagenase clostridium histo. 250 1 appl topical DAILY 06/11/24 06/22/24 unit/gram topical ointment (Santyl) gabapentin 100 mg capsule 100 mg PO TID 06/11/24 06/22/24 oxycodone-acetaminophen 5 mg-325 1 tab PO Q6H PRN pain 06/11/24 06/22/24 mg tablet paroxetine HCl 40 mg tablet 40 mg PO DAILY 06/11/24 06/22/24 hydroxyzine HCl 25 mg tablet 25 mg PO TID 06/22/24 06/22/24 Previous Rx's ?Medication ?Instructions ?Recorded apixaban 5 mg tablet (Eliquis) 5 mg PO BID #60 tabs 11/03/23 metoprolol succinate 50 mg 50 mg PO DAILY #90 tabs 05/23/24 tablet,extended release 24 hr amlodipine 5 mg tablet 5 mg PO DAILY #30 tabs 06/20/24 nystatin 100,000 unit/gram topical 1 appl topical BID #30 grams 06/20/24 powder torsemide 20 mg tablet 20 mg PO DAILY #30 tabs 06/20/24 Allergies Allergy/AdvReac Type Severity Reaction Status Date / Time codeine [CODEINE] Allergy Intermediate HALLUCINATI Verified 08/02/24 14:51 ONS Review of Systems 2 Review of Systems: Yes all other systems are reviewed and are negative [facility]LY [facility] Past Medical History Attestation statement: The following information was validated with the patient. Source: old records reviewed and nursing notes reviewed Medical History Leg abrasion Abuse of non-prescription analgesics Type 2 diabetes mellitus with unspecified complications Other and unspecified hyperlipidemia Essential hypertension Atherosclerotic cardiovascular disease Urgency incontinence Osteoporosis Arthritis Asthma Hypertension Fibromyalgia Diabetes mellitus Surgical History History of hernia repair Social History Social History Household Members: Other Household Members Other:: friend Housing: Apartment Do you presently have visiting nurse or other home services: Yes Unable to assess alcohol history related to: Refusing to respond Alcohol intake: never 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 Patient Tobacco Use Status: Never used Tobacco Smoked in Last 30 Days: No Use of substances other than those prescribed or required for medical reasons: No Advance Directives: Yes Advance Directives on File: Yes Advance Directives Date on File: 04/07/24 service: No Sexual orientation: Straight/Heterosexual Physical Exam ED Vital Signs: Vital Signs - 24 hr 08/02/24 14:44 08/02/24 15:00 08/02/24 15:40 Temperature 98.3 F Pulse Rate 46 L 41 L 42 L Respiratory Rate 24 H 19 18 Blood Pressure 104/41 L 98/50 L Pulse Oximetry 97 97 Oxygen Delivery Method Nasal Cannula Nasal Cannula Oxygen Flow Rate 3 BMI result Body Mass Index 39.4 vss Appearance: Alert.? Oriented X3.? No acute distress.? Head: Normocephalic, atraumatic, no step-offs or deformities Eyes: Pupils equal, round and reactive to light.? ENT: Pharynx normal.? Neck: Normal inspection.? Neck supple.? CVS: Normal heart rate and rhythm.? Pulses normal.? Respiratory: No respiratory distress.? Breath sounds mild expiratory wheezing bilaterally.? Abdomen: Soft and nontender.? Skin: Skin warm and dry.? Normal skin color.? Normal skin turgor.? Extremities: No lower extremity edema.? No calf ttp.Global weakness Neuro: Oriented X 3.? No motor deficit.? No sensory deficit. CN 2-12 intact Course Reevaluation(s) Reevaluation #1: CBC with a microcytic anemia appears to be around patient's baseline. No acute findings. Chemistry with elevated potassium 5.7 lokelma will be given. BUN and creatinine chronically elevated today BUN 47 creatinine 2.2. Glucose elevated 445 no anion kal no acidosis , fluids insulin will be ordered. UA w/ infection. ATBX ordered Time: 16:00 Reevaluation #2: X-ray with retrocardiac airspace disease and linear scar/subsegmental atelectasis within the upper to mid left lung. Recommend short-term follow-up with radiographs, for this reason CT scan ordered. Time: 16:02 Reevaluation #3: Plan is hospital admission. Still pending is a CT chest for further evaluation of abnormal x-ray. Time: 16:06 Medications Administered Discontinued Medications Generic Name Dose Route Start Last Admin Trade Name Freq PRN Reason Stop Dose Admin Sodium Chloride 1,000 mls @ 999 mls/hr 08/02/24 14:45 08/02/24 15:34 Ns IV 08/02/24 15:45 999 mls/hr .Q1H1M JULIANNE Administration Medical Decision Making Medical Decision Making [facility] Narrative: 74-year-old female presents with complaints of asthma, itchiness in her [place] region ongoing for the past few days. No sick contacts. Also noted to have high blood sugars. PE mild expiratory wheezing bilaterally History and physical exam concerning for viral illness versus bronchitis versus uncontrolled diabetes. Less likely HHS, DKA, acute respiratory distress, pulmonary embolism as patient is anticoagulated. History and physical exam not consistent with dissection, abdominal aortic aneurysm, ACS, acute distress. Will rule out UTI and metabolic derangements. Plan labs, imaging, urine Differential Diagnosis Differential Diagnoses: The differential diagnosis associated with the presentation includes (History and physical exam concerning for viral illness versus bronchitis versus uncontrolled diabetes. Less likely HHS, DKA, acute respiratory distress, pulmonary embolism as patient is anticoagulated. History and physical exam not consistent with dissection, abdominal aortic aneurysm, ACS, acute ) Admission/Observation Consideration of admission/observation: Escalation of care including admission/observation considered (possible ) Lab Data [facility] Lab Attestation statement: I reviewed the patient's lab results. 08/02/24 15:19 08/02/24 15:19 Labs: Lab Results 08/02/24 08/02/24 08/02/24 Range/Units 14:47 15:19 15:24 WBC 7.0 (4.8-10.8) X10*3/uL RBC 3.49 L (4.20-5.50) X10*6/uL Hgb 7.4 L (12.0-16.0) g/dl Hct 25.3 L (37.0-47.0) % MCV 72.5 L (80.0-98.0) fL MCH 21.2 L (27.0-33.0) pg MCHC 29.2 L (31.0-35.0) g/dl RDW 17.9 H (11.0-16.0) % Plt Count 367 D (160-400) X10*3/uL MPV 10.5 (9.4-12.3) fL Immature Gran % (Auto) 1.7 H (0.0-0.4) % Neut % (Auto) 68.7 (45-73) % Lymph % (Auto) 17.8 L (20-40) % Cole % (Auto) 6.2 (2-11) % Eos % (Auto) 4.6 H (0-4) % Baso % (Auto) 1.0 (0-2) % Lymph # (Auto) 1.2 (1.2-4.9) X10*3/uL Cole # (Auto) 0.4 (0.1-1.2) X10*3/uL Eos # (Auto) 0.3 (0.0-0.4) X10*3/uL Baso # (Auto) 0.1 (0.0-0.2) X10*3/uL Abs Immat Gran (auto) 0.12 H (0.00-0.03) X10*3/uL Absolute Neuts (auto) 4.8 (2.0-8.3) x10*3/uL Absolute Nucleated RBC 0.060 H (0.0-0.012) X10*3/uL Nucleated RBC % (auto) 0.9 H (0.0-0.2) /100WBC PT 19.3 H (10.9-12.4) SEC INR 1.7 H (0.9-1.1) VBG pH 7.37 (7.32-7.43) VBG pCO2 57 mmHg VBG pO2 56 mmHg VBG HCO3 33 H (22-26) mmol/L VBG O2 Saturation 80.0 % VBG Base Excess 7.4 mmol/L Sodium 136 (135-145) mmol/L Potassium 5.7 H (3.3-5.1) mmol/L Chloride 99 (96-108) mmol/L Carbon Dioxide 29 (22-29) mmol/L Anion Gap 14 (12-20) BUN 47 H (9-16) mg/dL Creatinine 2.20 H (0.5-1.4) mg/dL Estim Creat Clear Calc 27.8 Estimated GFR 22 POC Glucose 388 H* (60-115) mg/dL Random Glucose 445 H* (60-115) mg/dL Calcium 9.1 D (8.4-10.2) mg/dL Magnesium 2.6 (1.6-2.6) mg/dL Total Bilirubin 0.3 (0.0-1.0) mg/dL AST 20 (5-31) U/L ALT 7 (0-31) U/L Troponin I High Sens 6.1 (<3.5-17.0) ng/L Total Protein 6.7 (6.5-8.0) g/dL Albumin 2.9 L (3.5-5.0) g/dL Beta-Hydroxybutyrate 0.12 (0.02-0.27) mmol/L Urine Color Urine Appearance Urine pH (5.0-9.0) Ur Specific [place] (1.005-1.025) Urine Protein (Neg-Trace) mg/dL Urine Glucose (UA) (Negative) mg/dL Urine Ketones (Negative) mg/dL Urine Blood (Negative) Urine Nitrite (Negative) Ur Leukocyte Esterase (Negative) Urine Opiates Screen (Not Detect) Ur Buprenorphine Scrn (Not Detect) ng/mL Ur Oxycodone Screen (Not Detect) ng/mL Urine Methadone Screen (Not Detect) ng/mL Urine Fentanyl Screen (Not Detect) Ur Barbiturates Screen (Not Detect) Ur Phencyclidine Scrn (Not Detect) Ur Amphetamines Screen (Not Detect) U Benzodiazepines Scrn (Not Detect) Urine Cocaine Screen (Not Detect) U Marijuana (THC) Screen (Not Detect) Ethyl Alcohol < 10 mg/dL 08/02/24 Range/Units 15:28 WBC (4.8-10.8) X10*3/uL RBC (4.20-5.50) X10*6/uL Hgb (12.0-16.0) g/dl Hct (37.0-47.0) % MCV (80.0-98.0) fL MCH (27.0-33.0) pg MCHC (31.0-35.0) g/dl RDW (11.0-16.0) % Plt Count (160-400) X10*3/uL MPV (9.4-12.3) fL Immature Gran % (Auto) (0.0-0.4) % Neut % (Auto) (45-73) % Lymph % (Auto) (20-40) % Cole % (Auto) (2-11) % Eos % (Auto) (0-4) % Baso % (Auto) (0-2) % Lymph # (Auto) (1.2-4.9) X10*3/uL Cole # (Auto) (0.1-1.2) X10*3/uL Eos # (Auto) (0.0-0.4) X10*3/uL Baso # (Auto) (0.0-0.2) X10*3/uL Abs Immat Gran (auto) (0.00-0.03) X10*3/uL Absolute Neuts (auto) (2.0-8.3) x10*3/uL Absolute Nucleated RBC (0.0-0.012) X10*3/uL Nucleated RBC % (auto) (0.0-0.2) /100WBC PT (10.9-12.4) SEC INR (0.9-1.1) VBG pH (7.32-7.43) VBG pCO2 mmHg VBG pO2 mmHg VBG HCO3 (22-26) mmol/L VBG O2 Saturation % VBG Base Excess mmol/L Sodium (135-145) mmol/L Potassium (3.3-5.1) mmol/L Chloride (96-108) mmol/L Carbon Dioxide (22-29) mmol/L Anion Gap (12-20) BUN (9-16) mg/dL Creatinine (0.5-1.4) mg/dL Estim Creat Clear Calc Estimated GFR POC Glucose (60-115) mg/dL Random Glucose (60-115) mg/dL Calcium (8.4-10.2) mg/dL Magnesium (1.6-2.6) mg/dL Total Bilirubin (0.0-1.0) mg/dL AST (5-31) U/L ALT (0-31) U/L Troponin I High Sens (<3.5-17.0) ng/L Total Protein (6.5-8.0) g/dL Albumin (3.5-5.0) g/dL Beta-Hydroxybutyrate (0.02-0.27) mmol/L Urine Color Yellow Urine Appearance Clear Urine pH 5.5 (5.0-9.0) Ur Specific [place] 1.025 (1.005-1.025) Urine Protein Negative (Neg-Trace) mg/dL Urine Glucose (UA) >=1000 H (Negative) mg/dL Urine Ketones Negative (Negative) mg/dL Urine Blood Trace H (Negative) Urine Nitrite Positive H (Negative) Ur Leukocyte Esterase Small (1+) H (Negative) Urine Opiates Screen Not Detected (Not Detect) Ur Buprenorphine Scrn Not Detected (Not Detect) ng/mL Ur Oxycodone Screen Positive H (Not Detect) ng/mL Urine Methadone Screen Not Detected (Not Detect) ng/mL Urine Fentanyl Screen Not Detected (Not Detect) Ur Barbiturates Screen Not Detected (Not Detect) Ur Phencyclidine Scrn Not Detected (Not Detect) Ur Amphetamines Screen Not Detected (Not Detect) U Benzodiazepines Scrn Not Detected (Not Detect) Urine Cocaine Screen Not Detected (Not Detect) U Marijuana (THC) Screen Not Detected (Not Detect) Ethyl Alcohol mg/dL Independent Interpretation I performed an independent interpretation of an: EKG, Plain X-Ray (XR/XR chest 1V IMPRESSION: There is retrocardiac airspace disease, and linear scar/subsegmental atelectasis is seen within the upper to mid left lung. Recommend short-term follow-up chest radiographs to ensure clearance and exclude the possibility of underlying obstructive process.) and CT Scan Radiology Impression Discussion of test interpretation with radiology: I have reviewed the radiologist's reading. External Record Review External record reviewed: Inpatient record, Office record, Outpatient record, Prior outpatient labs, Prior outpatient radiology, Primary care record and Outside ED record Chronic Conditions Patient?s care impacted by: Other (see hpi ) Social Determinants Patient?s care significantly limited by Social Determinants of Health including: Other Social Determinant of Health Critical Care Time Critical Care Time Critical Care Time: Yes Total Critical Care Time: 35 Attestation: I attest to this time spent taking care of the patient, obtaining history, physical, reviewing labs, imaging, treatment of patients condition +/- specialist/hospitalist consult Discharge Plan Discharge Clinical Impression: UTI (urinary tract infection), Shortness of breath, Wheezing, Acute hyperglycemia, CKD (chronic kidney disease), Acute hyperkalemia Patient Disposition: Admitted As Inpatient Prescriptions: No Action metoprolol succinate 50 mg tablet extended release 24 hr 50 mg PO DAILY Qty: 90 5RF insulin glargine [Lantus U-100 Insulin] 100 unit/mL solution 65 unit subcut BEDTIME atorvastatin 80 mg tablet 80 mg PO BEDTIME dapagliflozin propanediol [Farxiga] 10 mg tablet 10 mg PO DAILY Eliquis 5 mg Tablet 5 mg PO BID Qty: 60 0RF omeprazole 40 mg capsule,delayed release(DR/EC) 40 mg PO DAILY@0630 triamcinolone acetonide 0.1 % cream 1 appl topical BID PRN (Reason: leg pain or swelling) duloxetine 20 mg capsule,delayed release(DR/EC) 20 mg PO DAILY trazodone 150 mg tablet 150 mg PO BEDTIME acetaminophen 500 mg Tablet 1,000 mg PO TID PRN (Reason: Pain) amiodarone 200 mg tablet 200 mg PO DAILY melatonin 5 mg tablet 5 mg PO BEDTIME aspirin 81 mg tablet,delayed release (DR/EC) 81 mg PO BEDTIME oxycodone-acetaminophen 5-325 mg tablet 1 tab PO Q6H PRN (Reason: pain) calcium carbonate 500 mg calcium (1,250 mg) tablet 500 mg PO BID gabapentin 100 mg capsule 100 mg PO TID Santyl 250 unit/gram ointment 1 appl topical DAILY clotrimazole 1 % cream 1 appl topical BID paroxetine HCl 40 mg tablet 40 mg PO DAILY nystatin 100,000 unit/gram Powder 1 appl topical BID Qty: 30 0RF Protocol: Apply to: Apply to: perenieum torsemide 20 mg tablet 20 mg PO DAILY Qty: 30 0RF amlodipine 5 mg Tablet 5 mg PO DAILY Qty: 30 0RF Protocol: Hold for SBP< HOLD for SBP < : 90 hydroxyzine HCl 25 mg tablet 25 mg PO TID levothyroxine 50 mcg tablet 50 mcg PO DAILY@0600 (DME) insulin syringe-needle U-100 1 mL 31 gauge x 5/16 syringe See Rx Instructions .ROUTE .MEDSUPPLY Qty: 10 Rx Instructions: As directed Print Language: Turkish
[2024-08-02 15:23] LABS: MANUAL DIFF FLAG NO
[2024-08-02 15:28] LABS: Venous Blood Gas Refer to POC result
[2024-08-02 15:29] LABS: VBG Base Excess 7.4 mmol/L; VBG HCO3 33 mmol/L (22-26); VBG pCO2 57 mmHg; VBG pH 7.37 (7.32-7.43); VBG pO2 56 mmHg
[2024-08-02 15:29] LABS: Basophils Absolute Auto 0.1 X10*3/uL (0.0-0.2); Eosinophils Absolute Auto 0.3 X10*3/uL (0.0-0.4); Eosinophils Percent Auto 4.6 % (0-4); Hematocrit 25.3 % (37.0-47.0); Hemoglobin 7.4 g/dl (12.0-16.0); Imm Gran Abs Auto 0.12 X10*3/uL (0.00-0.03); Imm Gran Pct Auto 1.7 % (0.0-0.4); Lymphocytes Absolute Auto 1.2 X10*3/uL (1.2-4.9); Lymphocytes Percent Auto 17.8 % (20-40); Mean Corpuscular HGB Conc 29.2 g/dl (31.0-35.0); Mean Corpuscular Hemoglobin 21.2 pg (27.0-33.0); Mean Corpuscular Volume 72.5 fL (80.0-98.0); Mean Platelet Volume 10.5 fL (9.4-12.3); Monocytes Absolute Auto 0.4 X10*3/uL (0.1-1.2); Monocytes Percent Auto 6.2 % (2-11); NRBC Pct Auto 0.9 /100WBC (0.0-0.2); Neutrophils Absolute Auto 4.8 x10*3/uL (2.0-8.3); Neutrophils Percent Auto 68.7 % (45-73); Platelet Count 367 X10*3/uL (160-400); Red Blood Count 3.49 X10*6/uL (4.20-5.50); Red Cell Distribution Width 17.9 % (11.0-16.0)
[2024-08-02] MEDS: 0.9 % Sodium Chloride 1,000 ML 999 ML IV (15:34)
[2024-08-02 15:35] LABS: Glucose, Whole Blood 388 mg/dL (60-115)
[2024-08-02 15:41] LABS: Appearance Urine Clear; Color Urine Yellow; Glucose Urine UA >=1000 mg/dL (Negative); Leukocyte Esterase Urine Small (1+) (Negative); Nitrite Urine Positive (Negative); PH 5.5 (5.0-9.0); Specific Gravity - Urine 1.025 (1.005-1.025); UMIC TRIGGER UACC YES; Urine Blood Trace (Negative); Urine Ketones Negative (Negative); Urine Protein Negative (Neg-Trace)
--- NOTE | 2024-08-02 15:41 | PC.NURSE ---
Pt presents to ED from home via EMS, per EMS pt lives with her daughter who takes care of her, called for ambulance for AMS/lethargy and high BGL X2 days worsening. Pt also complaining of vaginal itching. Pt is alert but lethargic on arrival, answering most questions correctly. Breathing even and unlabored, on 3L O2 NC at baseline. Skin pale and dry. Sinus josias on monitor. US guided line obtained in right AC by Dale FISHER. Pt straight cath with approx 300 of urine, yellow.
[2024-08-02 15:42] LABS: INTERNATIONAL NORM RATIO 1.7 (0.9-1.1); Prothrombin Time 19.3 SEC (10.9-12.4)
[2024-08-02 15:47] LABS: Ethanol < 10 mg/dL
[2024-08-02 15:48] LABS: Amphetamine Screen Urine Not Detected (Not Detect); Barbiturates, Urine Not Detected (Not Detect); Benzodiazepines Screen Urine Not Detected (Not Detect); Buprenorphine Scr Not Detected (Not Detect); Cannabinoid Screen Urine Not Detected (Not Detect); Cocaine Screen Urine Not Detected (Not Detect); Fentanyl, urine Not Detected (Not Detect); Methadone Screen, Urine Not Detected (Not Detect); Opiate Screen Urine Not Detected (Not Detect); Oxycodone Screen Urine Positive (Not Detect); Phencyclidine Screen Urine Not Detected (Not Detect)
[2024-08-02 15:56] LABS: Bacteria Urine 4+ (None Seen); Hyaline Casts Urine 0-2 /LPF (0-2); RBC Urine 0-2 /HPF (0-2); Squamous Epithelial Cell Urine 0-2 /HPF (0-2); UACC Culture Trigger YES; WBC Urine 21-50 /HPF (0-5)
[2024-08-02 15:56] LABS: Alanine Aminotransferase 7 U/L (0-31); Albumin Level 2.9 g/dL (3.5-5.0); Anion Gap 14 (12-20); Aspartate Amino Transferase 20 U/L (5-31); Beta-Hydroxybutyrate 0.12 mmol/L (0.02-0.27); Bilirubin Total 0.3 mg/dL (0.0-1.0); Blood Urea Nitrogen 47 mg/dL (9-16); Calcium 9.1 mg/dL (8.4-10.2); Carbon Dioxide 29 mmol/L (22-29); Chloride 99 mmol/L (96-108); Creatinine Clr Calc Pharmacy 27.8; Estimated Glomerular Filt Rate 22; Glucose Random 445 mg/dL (60-115); Magnesium 2.6 mg/dL (1.6-2.6); Potassium 5.7 mmol/L (3.3-5.1); Sodium 136 mmol/L (135-145); Total Protein 6.7 g/dL (6.5-8.0); Troponin-I High Sensitivity 6.1 ng/L (<3.5-17.0)
[2024-08-02 16:17] LABS: Alkaline Phosphatase 60 U/L (39-117)
[2024-08-02] MEDS: Insulin Lispro 100 UNIT/ML 3 ML VIAL SUBCUT ×2 (16:25→22:15)
[2024-08-02] MEDS: Albuterol/Iprat 2.5/0.5MG 3 ML AMPUL.NEB INHALE (16:25)
[2024-08-02 16:28] LABS: Glucose, Whole Blood 367 mg/dL (60-115)
[2024-08-02] MEDS: cefTRIAXone sodium 1 GM VIAL IVPUSH (17:12)
[2024-08-02 17:13] LABS: Lactic Acid 1.7 mmol/L (0.5-2.0)
--- NOTE | 2024-08-02 17:13 | P.HPHOSP_ITS ---
History of Present Illness Date of Service: 08/02/24 Attending physician on admission: Ronaldo Sarah Chief Complaint: Hyperglycemia Pt is a 74-year-old female with a PMH significant for paroxysmal AFib on Eliquis s/p cardioversion 06/2023, CAD, HFpEF, HTN, CKD 3, insulin-dependent type 2 diabetes, asthma, and hypothyroidism who presents to the ED with?multiple complaints though primarily due to intractable hyperglycemia. Family reports home blood glucose monitor reading came back only as high . Pt also has been complaining of vaginal itching and burning sensation with urination. Family note patient has seemed altered and ?not herself? for the past 2 days. She has been more lethargic and difficult to arouse, sleeping most of the day. Patient has been nonweightbearing on left leg after noting to have a nondisplaced left tibial plateau fracture on 06/24 of uncertain date. Currently pt is somnolent but arousable, though falling back asleep during interview and exam. Does not answer questions fully and minimally participatory in interview and exam. According to nursing and ED clinician this is a noted changed from 1 hour prior when patient was much more alert and awake and answering questions fully and incomplete sentences. Since patient has become somnolent, patient's heart rate has been noted to be significantly bradycardic in the 35-40 range, though rebounding to 45-47 when aroused. Unclear if patient is symptomatic. Contacted Cardiology who thought this is likely patient's baseline when sleeping, and did not recommend intervention or transfer at this time. Review of records indicates patient was started on metoprolol 100 mg b.i.d. around 04/2023 for finding of atrial flutter. Underwent successful cardioversion on 06/11/2023 and started on amiodarone 200 mg daily. Metoprolol was reduced to 50 mg b.i.d.. In 11/27/2023 patient had Holter monitor for 3 days that showed sinus bradycardia with average heart rate of 54 with 91.8% of the time with HR less than 60. Metoprolol was then reduced to 25 mg b.i.d.. In the ED pt was bradycardic as low as 37 initially tachypneic at 24, and soft BP as low as 98/50. Labs were significant for microcytic anemia of 7.4/25.3 (around baseline), potassium 5.7, BUN 47, creatinine 2.20, and albumin 2.9. No leukocytosis hepatic function baseline. Serial troponins flat at 6.1 in 6.8. Ammonia 37. Lactic acid WNL 1.7. UA positive for UTI. CXR showed retrocardiac airspace disease in linear scar/subsegmental atelectasis in upper to mid left lung. CT?of chest pending. EKG demonstrated marked sinus bradycardia of 42 without significant ischemic changes. Pt was treated with IVF, insulin lispro 5 units, DuoNebs, and ceftriaxone. Pt will be admitted to the hospital for treatment and further evaluation of acute metabolic encephalopathy in the setting of UTI and possible pneumonia. Review of Systems 2 Review of Systems: Yes Unobtainable due to mental status [facility] Medical History Leg abrasion Abuse of non-prescription analgesics Type 2 diabetes mellitus with unspecified complications Other and unspecified hyperlipidemia Essential hypertension Atherosclerotic cardiovascular disease Urgency incontinence Osteoporosis Arthritis Asthma Hypertension Fibromyalgia Diabetes mellitus Surgical History History of hernia repair Social History Household Members: Other Household Members Other:: friend Housing: Apartment Do you presently have visiting nurse or other home services: Yes Unable to assess alcohol history related to: Refusing to respond Alcohol intake: never 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 Patient Tobacco Use Status: Never used Tobacco Smoked in Last 30 Days: No Use of substances other than those prescribed or required for medical reasons: No Advance Directives: Yes Advance Directives on File: Yes Advance Directives Date on File: 04/07/24 service: No Sexual orientation: Straight/Heterosexual Meds Allergies Allergy/AdvReac Type Severity Reaction Status Date / Time codeine [CODEINE] Allergy Intermediate HALLUCINATI Verified 08/02/24 14:51 ONS Active Medications: Current Medications Ceftriaxone Sodium (Ceftriaxone Sodium 1 Gm Vial) 1 gm IVPUSH Q24H JULIANNE Glucose (Glucose Gel 15 Gm Gel..Gram.) 15 gm PO Q15M PRN; Protocol PRN Reason: per Hypoglycemia Standing Ord. Dextrose (D10) 250 mls @ 750 mls/hr IV Q15M PRN; Protocol PRN Reason: per Hypoglycemia Standing Ord. Insulin Human Lispro (Insulin Lispro 100 Unit/Ml 3 Ml Vial) 0 [facility]; Protocol Home Medications ?Medication ?Instructions ?Recorded ?Confirmed ?Last Taken ?Type insulin glargine 100 unit/mL 65 unit subcut BEDTIME 07/22/20 08/02/24 Unknown History subcutaneous solution (Lantus U-100 Insulin) atorvastatin 80 mg tablet 80 mg PO BEDTIME 04/07/21 08/02/24 10/24/23 20:00 History dapagliflozin propanediol 10 mg 10 mg PO DAILY 10/25/23 08/02/24 04/05/24 History tablet (Farxiga) levothyroxine 50 mcg tablet 50 mcg PO DAILY@0600 11/18/23 08/02/24 04/05/24 History duloxetine 20 mg capsule,delayed 20 mg PO DAILY 03/18/24 08/02/24 04/05/24 History release omeprazole 40 mg capsule,delayed 40 mg PO DAILY@0630 03/18/24 08/02/24 04/05/24 History release triamcinolone acetonide 0.1 % 1 appl topical BID PRN leg pain or 03/18/24 08/02/24 04/05/24 History topical cream swelling insulin syringe-needle U-100 1 mL #10 ea 03/29/24 Unknown History 31 gauge x 16 trazodone 150 mg tablet 150 mg PO BEDTIME 04/06/24 08/02/24 Unknown History acetaminophen 500 mg tablet 1,000 mg PO TID PRN Pain 04/19/24 08/02/24 Unknown History amiodarone 200 mg tablet 200 mg PO DAILY 04/19/24 08/02/24 Unknown History melatonin 5 mg tablet 5 mg PO BEDTIME PRN sleep 04/19/24 08/02/24 Unknown History aspirin 81 mg tablet,delayed 81 mg PO BEDTIME 06/11/24 08/02/24 Unknown History release calcium carbonate 500 mg PO BID 06/11/24 08/02/24 Unknown History clotrimazole 1 % topical cream 1 appl topical BID 06/11/24 08/02/24 Unknown History gabapentin 100 mg capsule 100 mg PO TID 06/11/24 08/02/24 Unknown History oxycodone-acetaminophen 5 mg-325 1 tab PO Q6H PRN pain 06/11/24 08/02/24 Unknown History mg tablet paroxetine HCl 40 mg tablet 40 mg PO DAILY 06/11/24 08/02/24 Unknown History hydroxyzine HCl 25 mg tablet 25 mg PO Q8H PRN Anxiety 06/22/24 08/02/24 Unknown History Physical Exam 2 Vital Signs and Narrative: Vital Signs: Last Vital Signs Temp 98.3 F 08/02/24 14:44 Pulse 40 L 08/02/24 17:12 Resp 20 08/02/24 17:12 BP 102/48 L 08/02/24 17:12 Pulse Ox 100 08/02/24 17:12 O2 Del Method Nasal Cannula 08/02/24 17:12 O2 Flow Rate 3 08/02/24 17:12 Oxygen Flow Rate 3 08/02/24 14:44 BMI result Body Mass Index 39.4 General: Somnolent but arousable, falling immediately back asleep. Minimally participatory in interview and exam. In no acute distress Resp: Difficult to auscultate as patient is somnolent and snoring CVS: S1, S2, regular rate, bradycardic GI: +BS, NT, no distention Skin: Warm, dry Neuro: Cranial nerves II-XII grossly intact bilaterally. Motor grossly intact bilaterally Extremities: No edema Results Labs 08/02/24 15:19 08/02/24 15:19 Labs: Laboratory Results - last 24 hr 08/02/24 08/02/24 08/02/24 14:47 15:19 15:24 MCV 72.5 L MCH 21.2 L MCHC 29.2 L RDW 17.9 H Plt Count 367 D MPV 10.5 Immature Gran % (Auto) 1.7 H Neut % (Auto) 68.7 Lymph % (Auto) 17.8 L Leslie % (Auto) 6.2 Eos % (Auto) 4.6 H Baso % (Auto) 1.0 Lymph # (Auto) 1.2 Leslie # (Auto) 0.4 Eos # (Auto) 0.3 Baso # (Auto) 0.1 Abs Immat Gran (auto) 0.12 H Absolute Neuts (auto) 4.8 Absolute Nucleated RBC 0.060 H Nucleated RBC % (auto) 0.9 H PT 19.3 H INR 1.7 H VBG pH 7.37 VBG pCO2 57 VBG pO2 56 VBG HCO3 33 H VBG O2 Saturation 80.0 VBG Base Excess 7.4 Anion Gap 14 Estim Creat Clear Calc 27.8 Estimated GFR 22 POC Glucose 388 H* Random Glucose 445 H* Calcium 9.1 D Magnesium 2.6 Total Bilirubin 0.3 AST 20 ALT 7 Alkaline Phosphatase 60 Troponin I High Sens 6.1 Total Protein 6.7 Albumin 2.9 L Beta-Hydroxybutyrate 0.12 Urine Color Urine Appearance Urine pH Ur Specific Odon Urine Protein Urine Glucose (UA) Urine Ketones Urine Blood Urine Nitrite Ur Leukocyte Esterase Urine RBC Urine WBC Ur Squamous Epith Cells Urine Bacteria Hyaline Casts Urine Opiates Screen Ur Buprenorphine Scrn Ur Oxycodone Screen Urine Methadone Screen Urine Fentanyl Screen Ur Barbiturates Screen Ur Phencyclidine Scrn Ur Amphetamines Screen U Benzodiazepines Scrn Urine Cocaine Screen U Marijuana (THC) Screen Ethyl Alcohol < 10 08/02/24 08/02/24 15:28 16:25 MCV MCH MCHC RDW Plt Count MPV Immature Gran % (Auto) Neut % (Auto) Lymph % (Auto) Leslie % (Auto) Eos % (Auto) Baso % (Auto) Lymph # (Auto) Leslie # (Auto) Eos # (Auto) Baso # (Auto) Abs Immat Gran (auto) Absolute Neuts (auto) Absolute Nucleated RBC Nucleated RBC % (auto) PT INR VBG pH VBG pCO2 VBG pO2 VBG HCO3 VBG O2 Saturation VBG Base Excess Anion Gap Estim Creat Clear Calc Estimated GFR POC Glucose 367 H* Random Glucose Calcium Magnesium Total Bilirubin AST ALT Alkaline Phosphatase Troponin I High Sens Total Protein Albumin Beta-Hydroxybutyrate Urine Color Yellow Urine Appearance Clear Urine pH 5.5 Ur Specific Odon 1.025 Urine Protein Negative Urine Glucose (UA) >=1000 H Urine Ketones Negative Urine Blood Trace H Urine Nitrite Positive H Ur Leukocyte Esterase Small (1+) H Urine RBC 0-2 Urine WBC 21-50 H Ur Squamous Epith Cells 0-2 Urine Bacteria 4+ Hyaline Casts 0-2 Urine Opiates Screen Not Detected Ur Buprenorphine Scrn Not Detected Ur Oxycodone Screen Positive H Urine Methadone Screen Not Detected Urine Fentanyl Screen Not Detected Ur Barbiturates Screen Not Detected Ur Phencyclidine Scrn Not Detected Ur Amphetamines Screen Not Detected U Benzodiazepines Scrn Not Detected Urine Cocaine Screen Not Detected U Marijuana (THC) Screen Not Detected Ethyl Alcohol Imaging Radiologist's Impressions: Impressions Chest X-Ray 08/02/24 15:05 IMPRESSION: There is retrocardiac airspace disease, and linear scar/subsegmental atelectasis is seen within the upper to mid left lung. Recommend short-term follow-up chest radiographs to ensure clearance and exclude the possibility of underlying obstructive process. Electronically signed by: Frank Singh MD 08/02/2024 03:43 PM [facility] [place] (1) Acute hyperkalemia: Status: Acute (2) Acute metabolic encephalopathy: Status: Acute (3) Acute UTI: Status: Inactive Plan Pt is a 74-year-old female with a PMH significant for paroxysmal AFib on Eliquis s/p cardioversion 06/2023, CAD, HFpEF, HTN, CKD 3, insulin-dependent type 2 diabetes, asthma, and hypothyroidism who presents to the ED with?multiple complaints though primarily due to intractable hyperglycemia. Pt also has been complaining of vaginal itching and burning sensation with urination. Family note patient has seemed altered and ?not herself? for the past 2 days. Pt will be admitted to the hospital for treatment and further evaluation of acute metabolic encephalopathy in the setting of UTI and possible pneumonia. Acute metabolic encephalopathy in the setting of acute UTI Patient with increased lethargy, somnolence, difficult to arouse, UA positive, complaining of vaginal itching and burning when urinating No sepsis: No leukocytosis, fever, or tachycardia; lactic acid WNL Patient given IVF and started on broad-spectrum antibiotics in the ED Will treat with ceftriaxone Bradycardia Patient's HR noted to be 35-40 while sleeping, 47-50 while awake Has history and past of bradycardia with reduction of metoprolol 100 mg b.i.d. to 25 mg b.i.d. Unclear if patient is symptomatic Cardiology consulted did not think any acute intervention or transfer necessary at this time Will hold amiodarone, metoprolol for now Monitor on telemetry Question of pneumonia CT of chest showing bibasilar atelectasis, L>R, infectious etiology can not be excluded on the left Unclear if patient is symptomatic above baseline Will empirically treat with ceftriaxone and azithromycin started 08/02/2024 Insulin-dependent type 2 diabetes with hyperglycemia Blood glucose difficult to control at home with the past few days POC 388 at time of presentation Beta hydroxybutyrate WNL, no DKA Will place on sliding scale insulin, continue Lantus Diabetic diet Hypothyroidism TSH elevated at 31.45, free T4 WNL at 0.88 No additional intervention necessary at this time Continue levothyroxine Follow up outpatient for close monitoring of TSH and T4 in 3-4 weeks HFpEF Does not appear to be in acute exacerbation BNP pending Continue torsemide Hold metoprolol Monitor volume status Paroxysmal AFib Continue Eliquis Hold amiodarone HTN BP has been soft, hold amlodipine and metoprolol CAD/HLD Continue aspirin, statin Peripheral neuropathy Continue gabapentin Full Code Attending:?Dr. Sarah DVT Prophylaxis:On Eliquis Pt will require a hospitalization of at least two nights for treatment of?acute metabolic encephalopathy in setting of UTI and possible pneumonia. Given patient's altered mental status will require hospital level care for administration of IV antibiotics, close monitoring of labs and mental status. Quality Stroke Does the patient have a stroke diagnosis?: No VTE Prior VTE?: No VTE Risk Level:: Medical - moderate - high VTE Device Contraindication: Treatment Not Indicated VTE Drug Contraindication: N/A - Med Ordered
[2024-08-02 17:17] LABS: VBG Base Excess 6.3 mmol/L; VBG HCO3 33 mmol/L (22-26); VBG pCO2 63 mmHg; VBG pH 7.33 (7.32-7.43); VBG pO2 67 mmHg
[2024-08-02 17:19] LABS: Troponin-I High Sensitivity 6.8 ng/L (<3.5-17.0)
[2024-08-02 17:22] LABS: Ammonia 37 umol/L (13-55)
--- NOTE | 2024-08-02 17:25 | PC.NURSE ---
Providers are aware of ongoing bradycardia. no interventions at this time
[2024-08-02 17:31] LABS: Free T4 (Free Thyroxine) 0.88 ng/dL (0.71-1.85); Thyroid Stimulating Hormone 31.45 uIU/mL (0.32-4.0)
[2024-08-02 17:43] LABS: Venous Blood Gas Refer to POC result
[2024-08-02 20:31] LABS: Glucose, Whole Blood 354 mg/dL (60-115)
[2024-08-02] MEDS: Calcium Oyster Shell Elemental 500 MG TABLET PO (21:27)
[2024-08-02] MEDS: Melatonin 3 MG TABLET 6 MG PO (21:27)
[2024-08-02] MEDS: Apixaban 5 MG TABLET PO (21:27)
[2024-08-02] MEDS: Aspirin Enteric Coated 81 MG TABLET.DR PO (21:27)
[2024-08-02] MEDS: Atorvastatin Calcium 80 MG TABLET PO (21:27)
[2024-08-02] MEDS: Insulin Glargine,Hum.rec.anlog 100 UNIT/ML 10 ML VIAL 50 UNIT SUBCUT (22:16)
[2024-08-02] MEDS: Azithromycin 500 MG in 0.9 % Sodium Chloride 250 ML 125 MG IV (22:17)
[2024-08-02 23:25] LABS: VBG Base Excess 7.6 mmol/L; VBG HCO3 33 mmol/L (22-26); VBG pCO2 57 mmHg; VBG pH 7.37 (7.32-7.43); VBG pO2 47 mmHg
[2024-08-02 23:26] LABS: Venous Blood Gas Refer to POC result
[2024-08-02] MEDS: Nystatin Powder 15 GM BOTTLE 1 APPL TOPICAL (23:32)
[2024-08-02] MEDS: LORazepam 2 MG/ML VIAL 0.5 MG IVPUSH (23:32)
[2024-08-02] MEDS: 0.9 % Sodium Chloride Flush 3 ML SYRINGE IVFLUSH (23:32)
[2024-08-03] VITALS (13 sets, daily range): BP systolic 112–148; BP diastolic 50–83; PULSE 40–50; RESP 16–20; TEMP 36.1–36.6; O2SAT 91–97
[2024-08-03] MEDS: Omeprazole 40 MG CAPSULE.DR PO (04:20)
[2024-08-03] MEDS: Levothyroxine Sodium 50 MCG TABLET PO (04:21)
[2024-08-03] MEDS: hydrOXYzine HCL 25 MG TABLET PO ×2 (04:21→12:40)
--- NOTE | 2024-08-03 07:20 | PHA.MEDREC ---
Pharmacy Consult ? Medication Reconciliation Pharmacy has completed the medication reconciliation. Completed 08/02/24 by Nidhi QUEEN
[2024-08-03 08:11] LABS: Glucose, Whole Blood 307 mg/dL (60-115)
[2024-08-03] MEDS: Insulin Lispro 100 UNIT/ML 3 ML VIAL SUBCUT ×4 (08:55→22:50)
[2024-08-03] MEDS: Torsemide 20 MG TABLET PO (08:55)
[2024-08-03] MEDS: DULoxetine HCl 20 MG CAPSULE.DR PO (08:56)
[2024-08-03] MEDS: Calcium Oyster Shell Elemental 500 MG TABLET PO ×2 (08:56→22:49)
[2024-08-03] MEDS: Acetaminophen 325 MG TABLET 650 MG PO (08:56)
[2024-08-03] MEDS: 0.9 % Sodium Chloride Flush 3 ML SYRINGE IVFLUSH ×2 (08:56→21:15)
[2024-08-03] MEDS: PARoxetine HCL 40 MG TABLET PO (08:56)
[2024-08-03] MEDS: Apixaban 5 MG TABLET PO ×2 (08:56→22:49)
[2024-08-03] MEDS: Gabapentin 100 MG CAPSULE PO ×3 (08:56→22:49)
[2024-08-03] MEDS: Nystatin Powder 15 GM BOTTLE 1 APPL TOPICAL ×2 (08:59→22:50)
--- NOTE | 2024-08-03 10:43 | MHC.CM.PN ---
IMM 08/03/24, EMR REVIEWED, PT W/UTI/ENCEPHALOPATHY, A&O HOWEVER C/O DISCOMFORT IN GROIN THROUGHOUT INTERVIEW, PT DID RECEIVE CALL FROM DTR ANTONIO WALTER WHO WAS ABLE TO ASSIST W/ANSWERING QUESTIONS, PT IS STILL LIVING W/[facility] AT [address] [place] [address] , PT REMAINS NWB ON L FOOT, USING A W/C FOR MOBILITY, NO LONGER HAS [facility] FOR DAILY MEDS [facility] IS ADMINISTERING MEDS TO PT, ANTONIO WALTER VERIFIES PCP IS DR. FITZPATRICK, HCP ON FILE. PT'S GOAL IS TO RETURN TO [facility] HOME SOON POSSIBLE.
[2024-08-03] MEDS: oxyCODONE HCl Immed Release 5 MG TABLET PO (10:45)
[2024-08-03 11:05] LABS: Glucose, Whole Blood 303 mg/dL (60-115)
[2024-08-03 11:32] LABS: Hematocrit 23.8 % (37.0-47.0); Mean Corpuscular HGB Conc 28.6 g/dl (31.0-35.0); Mean Corpuscular Hemoglobin 20.7 pg (27.0-33.0); Mean Corpuscular Volume 72.3 fL (80.0-98.0); Mean Platelet Volume 11.4 fL (9.4-12.3); NRBC Pct Auto 0.7 /100WBC (0.0-0.2); PLT CLUMP 1; Red Blood Count 3.29 X10*6/uL (4.20-5.50)
[2024-08-03 11:53] LABS: Hemoglobin 6.8 g/dl (12.0-16.0); White Blood Count 7.5 X10*3/uL (4.8-10.8)
[2024-08-03 11:59] LABS: Anion Gap 17 (12-20); Blood Urea Nitrogen 46 mg/dL (9-16); Calcium 8.7 mg/dL (8.4-10.2); Carbon Dioxide 22 mmol/L (22-29); Chloride 104 mmol/L (96-108); Creatinine Clr Calc Pharmacy 33.8; Estimated Glomerular Filt Rate 27; Platelet Count 298 X10*3/uL (160-400); Potassium 5.5 mmol/L (3.3-5.1); Sodium 137 mmol/L (135-145)
[2024-08-03 12:01] LABS: Glucose Random 362 mg/dL (60-115)
[2024-08-03] MEDS: Fluconazole in NaCl,Iso-Osm 200 MG/100 ML PIGGYBACK 100 MG IV (12:40)
[2024-08-03] MEDS: Morphine Sulfate 4 MG/ML CARTRIDGE IVPUSH ×2 (12:46→23:43)
--- NOTE | 2024-08-03 15:57 | P.PNIM_ITS ---
Subjective Subjective Date of Service: 08/03/24 Interval History: Continues to complain of vaginal pain and dysuria. Hemoglobin noted to be 6.8. Previously refused transfusion Review of Systems Denies chest pain Denies shortness of breath Denies nausea vomiting diarrhea Admits to vaginal pain and dysuric symptoms Physical Exam 2 Vital Signs: Vital Signs: Last Vital Signs Temp 97.8 F 08/03/24 14:57 Pulse 46 L 08/03/24 14:57 Resp 18 08/03/24 14:57 BP 125/58 L 08/03/24 14:57 Pulse Ox 95 08/03/24 15:00 O2 Del Method Nasal Cannula 08/03/24 15:00 O2 Flow Rate 1 08/03/24 15:00 Oxygen Flow Rate 3 08/02/24 14:44 BMI result Body Mass Index 39.4 Const: Other: Awake alert oriented x3 uncomfortable appearing Resp: Other: Clear to auscultation bilaterally no rales rhonchi or wheezes Cardio: Other: No S4; positive S1-S2; no S3 murmurs rubs or gallops GI: Other: Soft nontender nondistended normoactive bowel sounds Extrem: Other: No edema bilaterally Objective Data Active Medications Acetaminophen (Acetaminophen 325 Mg Tablet) 650 mg PO Q6H PRN PRN Reason: Pain, Mild 1-3,fever,headache Last Admin: 08/03/24 08:56 Dose: 650 mg Documented By: LEONEL Apixaban (Apixaban 5 Mg Tablet) 5 mg PO BID [facility] Last Admin: 08/03/24 08:56 Dose: 5 mg Documented By: LEONEL Aspirin (Aspirin Enteric Coated 81 Mg Tablet.) 81 mg PO BEDTIME [facility] Last Admin: 08/02/24 21:27 Dose: 81 mg Documented By: MATEO Atorvastatin Calcium (Atorvastatin Calcium 80 Mg Tablet) 80 mg PO BEDTIME [facility] Last Admin: 08/02/24 21:27 Dose: 80 mg Documented By: MATEO Calcium Carbonate (Calcium Carbonate 750 Mg Tab.Chew) 750 mg PO Q4H PRN PRN Reason: Heartburn Calcium Carbonate (Calcium Oyster Shell Elemental 500 Mg Tablet) 500 mg PO BID [facility] Last Admin: 08/03/24 08:56 Dose: 500 mg Documented By: LEONEL Ceftriaxone Sodium (Ceftriaxone Sodium 1 Gm Vial) 1 gm IVPUSH Q24H [facility] Duloxetine HCl (Duloxetine Hcl 20 Mg Capsule.) 20 mg PO DAILY [facility] Last Admin: 08/03/24 08:56 Dose: 20 mg Documented By: LEONEL Gabapentin (Gabapentin 100 Mg Capsule) 100 mg PO TID [facility] Last Admin: 08/03/24 14:16 Dose: 100 mg Documented By: LEONEL Glucose (Glucose Gel 15 Gm Gel..Gram.) 15 gm PO Q15M PRN; Protocol PRN Reason: per Hypoglycemia Standing Ord. Hydroxyzine HCl (Hydroxyzine Hcl 25 Mg Tablet) 25 mg PO Q8H PRN PRN Reason: Anxiety Last Admin: 08/03/24 12:40 Dose: 25 mg Documented By: LEONEL Dextrose (D10) 250 mls @ 750 mls/hr IV Q15M PRN; Protocol PRN Reason: per Hypoglycemia Standing Ord. Azithromycin 500 mg/ Sodium (Chloride) 250 mls @ 125 mls/hr IV Q24H [facility] Last Infusion: 08/03/24 00:20 Dose: Infused Documented By: MATEO Insulin Glargine (Insulin Glargine,Hum.Rec.Anlog 100 Unit/Ml 10 Ml Vial) 50 unit SUBCUT BEDTIME [facility] Last Admin: 08/02/24 22:16 Dose: 50 unit Documented By: MATEO Insulin Human Lispro (Insulin Lispro 100 Unit/Ml 3 Ml Vial) 0 unit SUBCUT QIDACHS [facility]; Protocol Last Admin: 08/03/24 12:40 Dose: 8 unit Documented By: LEONEL Levothyroxine Sodium (Levothyroxine Sodium 50 Mcg Tablet) 50 mcg PO DAILY@0600 [facility] Last Admin: 08/03/24 04:21 Dose: 50 mcg Documented By: MATEO Magnesium Hydroxide (Milk Of Magnesia 30 Ml Oral.Susp) 30 ml PO DAILY PRN PRN Reason: Constipation Melatonin (Melatonin 3 Mg Tablet) 6 mg PO BEDTIME PRN PRN Reason: Insomnia Last Admin: 08/02/24 21:27 Dose: 6 mg Documented By: MATEO Morphine Sulfate (Morphine Sulfate 4 Mg/Ml Cartridge) 4 mg IVPUSH Q4H PRN; Protocol PRN Reason: Pain, Severe (Pain Scale 7-10) Last Admin: 12/26/24 12:46 Dose: 4 mg Documented By: LEONEL Nystatin (Nystatin Powder 15 Gm Bottle) 1 appl TOPICAL BID [facility]; Protocol Last Admin: 08/03/24 08:59 Dose: 1 appl Documented By: LEONEL Olanzapine (Olanzapine 10 Mg Vial) 2.5 mg IM ONCE PRN PRN Reason: anxiety/restlessness Omeprazole (Omeprazole 40 Mg Capsule.Dr) 40 mg PO DAILY@0630 [facility] Last Admin: 08/03/24 04:20 Dose: 40 mg Documented By: MATEO Oxycodone HCl (Oxycodone Hcl Immed Release 5 Mg Tablet) 5 mg PO Q6H PRN PRN Reason: Pain, Moderate(Pain Scale 4-6) Last Admin: 08/03/24 10:45 Dose: 5 mg Documented By: LEONEL Paroxetine HCl (Paroxetine Hcl 40 Mg Tablet) 40 mg PO DAILY [facility] Last Admin: 08/03/24 08:56 Dose: 40 mg Documented By: LEONEL Sodium Chloride (0.9 % Sodium Chloride Flush 3 Ml Syringe) 3 ml IVFLUSH QSHIFT [facility] Last Admin: 08/03/24 14:43 Dose: Not Given Documented By: LEONEL Non-Admin Reason: IV Running Torsemide (Torsemide 20 Mg Tablet) 20 mg PO DAILY [facility]; Protocol Last Admin: 08/03/24 08:55 Dose: 20 mg Documented By: LEONEL Trazodone HCl (Trazodone Hcl 50 Mg Tablet) 150 mg PO BEDTIME [facility] Last Admin: 08/02/24 22:18 Dose: Not Given Documented By: MATEO Non-Admin Reason: Physician Held Med Triamcinolone Acetonide (Triamcinolone Acet 0.1 % Cream 15 Gm Tube) 1 appl TOPICAL BID PRN; Protocol PRN Reason: leg pain or swelling Labs 08/03/24 10:57 08/03/24 10:57 Labs: Laboratory Results - last 24 hr 08/02/24 08/02/24 08/02/24 14:47 15:19 15:24 MCV MCH MCHC RDW Plt Count MPV Absolute Nucleated RBC Nucleated RBC % (auto) VBG pH 7.37 VBG pCO2 57 VBG pO2 56 VBG HCO3 33 H VBG O2 Saturation 80.0 VBG Base Excess 7.4 Anion Gap Estim Creat Clear Calc Estimated GFR POC Glucose 388 H* Random Glucose Lactic Acid Calcium Alkaline Phosphatase 60 Ammonia Troponin I High Sens 6.1 TSH 31.45 H Free T4 0.88 Urine Color Urine Appearance Urine pH Ur Specific [place] Urine Protein Urine Glucose (UA) Urine Ketones Urine Blood Urine Nitrite Ur Leukocyte Esterase Urine RBC Urine WBC Ur Squamous Epith Cells Urine Bacteria Hyaline Casts Blood Type Antibody Screen Crossmatch 08/02/24 08/02/24 08/02/24 15:28 16:25 16:51 MCV MCH MCHC RDW Plt Count MPV Absolute Nucleated RBC Nucleated RBC % (auto) VBG pH VBG pCO2 VBG pO2 VBG HCO3 VBG O2 Saturation VBG Base Excess Anion Gap Estim Creat Clear Calc Estimated GFR POC Glucose 367 H* Random Glucose Lactic Acid 1.7 Calcium Alkaline Phosphatase Ammonia Troponin I High Sens 6.8 TSH Free T4 Urine Color Yellow Urine Appearance Clear Urine pH 5.5 Ur Specific [place] 1.025 Urine Protein Negative Urine Glucose (UA) >=1000 H Urine Ketones Negative Urine Blood Trace H Urine Nitrite Positive H Ur Leukocyte Esterase Small (1+) H Urine RBC 0-2 Urine WBC 21-50 H Ur Squamous Epith Cells 0-2 Urine Bacteria 4+ Hyaline Casts 0-2 Blood Type Antibody Screen Crossmatch 08/02/24 08/02/24 08/02/24 17:05 17:11 20:27 MCV MCH MCHC RDW Plt Count MPV Absolute Nucleated RBC Nucleated RBC % (auto) VBG pH 7.33 VBG pCO2 63 VBG pO2 67 VBG HCO3 33 H VBG O2 Saturation TNP VBG Base Excess 6.3 Anion Gap Estim Creat Clear Calc Estimated GFR POC Glucose 354 H* Random Glucose Lactic Acid Calcium Alkaline Phosphatase Ammonia 37 Troponin I High Sens TSH Free T4 Urine Color Urine Appearance Urine pH Ur Specific [place] Urine Protein Urine Glucose (UA) Urine Ketones Urine Blood Urine Nitrite Ur Leukocyte Esterase Urine RBC Urine WBC Ur Squamous Epith Cells Urine Bacteria Hyaline Casts Blood Type Antibody Screen Crossmatch 08/02/24 08/03/24 08/03/24 23:21 07:46 10:54 MCV MCH MCHC RDW Plt Count MPV Absolute Nucleated RBC Nucleated RBC % (auto) VBG pH 7.37 VBG pCO2 57 VBG pO2 47 VBG HCO3 33 H VBG O2 Saturation Not Reportable VBG Base Excess 7.6 Anion Gap Estim Creat Clear Calc Estimated GFR POC Glucose 307 H 303 H Random Glucose Lactic Acid Calcium Alkaline Phosphatase Ammonia Troponin I High Sens TSH Free T4 Urine Color Urine Appearance Urine pH Ur Specific [place] Urine Protein Urine Glucose (UA) Urine Ketones Urine Blood Urine Nitrite Ur Leukocyte Esterase Urine RBC Urine WBC Ur Squamous Epith Cells Urine Bacteria Hyaline Casts Blood Type Antibody Screen Crossmatch 08/03/24 08/03/24 10:57 12:35 MCV 72.3 L MCH 20.7 L MCHC 28.6 L RDW 18.0 H Plt Count 298 MPV 11.4 Absolute Nucleated RBC 0.050 H Nucleated RBC % (auto) 0.7 H VBG pH VBG pCO2 VBG pO2 VBG HCO3 VBG O2 Saturation VBG Base Excess Anion Gap 17 Estim Creat Clear Calc 33.8 Estimated GFR 27 POC Glucose Random Glucose 362 H* Lactic Acid Calcium 8.7 Alkaline Phosphatase Ammonia Troponin I High Sens TSH Free T4 Urine Color Urine Appearance Urine pH Ur Specific [place] Urine Protein Urine Glucose (UA) Urine Ketones Urine Blood Urine Nitrite Ur Leukocyte Esterase Urine RBC Urine WBC Ur Squamous Epith Cells Urine Bacteria Hyaline Casts Blood Type A Positive Antibody Screen NEGATIVE Crossmatch See Detail Microbiology Microbiology Results: Microbiology 08/02/24 15:28 Urine Culture - Preliminary Urine Catheterized - Straight Catheter Gram negative dulce Assessment and Plan (1) Acute metabolic encephalopathy: Status: Acute (2) UTI (urinary tract infection): Status: Acute (3) CKD stage 3 due to type 2 diabetes mellitus: Status: Acute Plan Pt is a 74-year-old female with a PMH significant for paroxysmal AFib on Eliquis s/p cardioversion 06/2023, CAD, HFpEF, HTN, CKD 3, insulin-dependent type 2 diabetes, asthma, and hypothyroidism who presents to the ED with?multiple complaints though primarily due to intractable hyperglycemia. Pt also has been complaining of vaginal itching and burning sensation with urination. Family note patient has seemed altered and ?not herself? for the past 2 days. Pt will be admitted to the hospital for treatment and further evaluation of acute metabolic encephalopathy in the setting of UTI and possible pneumonia. 1.Acute metabolic encephalopathy in the setting of acute UTI -improved since admission and response to ceftriaxone (2) -preliminary culture Gram-negative rods. Continue ceftriaxone -adjust therapies when ID complete 2. Vaginal candidiasis -Diflucan 200 mg IV x1 dose -continue 100 mg p.o. daily x9 days. .. Start in a.m. 3..Bradycardia -asymptomatic at this time -appreciate Cardiology input; conservative at this time. -meds adjusted 4. Bilateral pneumonia (verified by CT) -ceftriaxone (2) azithromycin (2) 5.Insulin-dependent type 2 diabetes with hyperglycemia -continues with poorly controlled sugars -continue lispro correctional scale -add Lantus 20 units tomorrow a.m. -adjust therapies as indicated 6.Hypothyroidism -TSH elevated at 31.45, free T4 WNL at 0.88 - levothyroxine at outpatient dosing -follow up as outpatient 7.HFpEF -stable and well compensated 8.Paroxysmal AFib -acceptable control -Eliquis -amiodarone/metoprolol held secondary to bradycardia -add back when clinically indicated 9..HTN -acceptable control off therapies -follow clinically Full Code Eliquis Requires ongoing hospitalization for IV antibiotics to treat bilateral pneumonia Quality Stroke Does the patient have a stroke diagnosis?: No VTE Prior VTE?: No VTE Risk Level:: Medical - moderate - high VTE Device Contraindication: Treatment Not Indicated VTE Drug Contraindication: N/A - Med Ordered
[2024-08-03 16:22] LABS: Glucose, Whole Blood 307 mg/dL (60-115)
[2024-08-03] MEDS: cefTRIAXone sodium 1 GM VIAL IVPUSH (17:10)
[2024-08-03 20:22] LABS: Glucose, Whole Blood 239 mg/dL (60-115)
[2024-08-03 20:46] LABS: B Type Natriuretic Peptide 800 pg/mL (<100)
[2024-08-03] MEDS: Azithromycin 500 MG in 0.9 % Sodium Chloride 250 ML 125 MG IV (21:14)
[2024-08-03] MEDS: Atorvastatin Calcium 80 MG TABLET PO (22:49)
[2024-08-03] MEDS: Aspirin Enteric Coated 81 MG TABLET.DR PO (22:49)
[2024-08-03] MEDS: Insulin Glargine,Hum.rec.anlog 100 UNIT/ML 10 ML VIAL 50 UNIT SUBCUT (22:49)
[2024-08-04] VITALS (7 sets, daily range): BP systolic 108–153; BP diastolic 58–70; PULSE 45–57; RESP 16–18; TEMP 36–36.7; O2SAT 92–96
[2024-08-04] MEDS: Omeprazole 40 MG CAPSULE.DR PO (05:33)
[2024-08-04] MEDS: Levothyroxine Sodium 50 MCG TABLET PO (05:33)
[2024-08-04 07:40] LABS: Glucose, Whole Blood 159 mg/dL (60-115)
[2024-08-04] MEDS: 0.9 % Sodium Chloride Flush 3 ML SYRINGE IVFLUSH ×2 (07:59→16:19)
[2024-08-04] MEDS: Insulin Lispro 100 UNIT/ML 3 ML VIAL SUBCUT ×4 (07:59→21:37)
[2024-08-04] MEDS: Nystatin Powder 15 GM BOTTLE 1 APPL TOPICAL ×2 (07:59→19:56)
[2024-08-04] MEDS: Gabapentin 100 MG CAPSULE PO ×3 (08:00→19:54)
[2024-08-04] MEDS: Torsemide 20 MG TABLET PO (08:00)
[2024-08-04] MEDS: Calcium Oyster Shell Elemental 500 MG TABLET PO ×2 (08:00→19:55)
[2024-08-04] MEDS: PARoxetine HCL 40 MG TABLET PO (08:00)
[2024-08-04] MEDS: Apixaban 5 MG TABLET PO ×2 (08:00→19:55)
[2024-08-04] MEDS: DULoxetine HCl 20 MG CAPSULE.DR PO (08:00)
[2024-08-04] MEDS: hydrOXYzine HCL 25 MG TABLET PO ×2 (08:01→18:10)
[2024-08-04 08:52] LABS: MANUAL DIFF FLAG NO
[2024-08-04 08:59] LABS: Basophils Absolute Auto 0.1 X10*3/uL (0.0-0.2); Basophils Percent Auto 1.1 % (0-2); Eosinophils Absolute Auto 0.4 X10*3/uL (0.0-0.4); Eosinophils Percent Auto 4.9 % (0-4); Hematocrit 32.2 % (37.0-47.0); Hemoglobin 9.3 g/dl (12.0-16.0); Imm Gran Abs Auto 0.08 X10*3/uL (0.00-0.03); Imm Gran Pct Auto 1.1 % (0.0-0.4); Lymphocytes Absolute Auto 1.5 X10*3/uL (1.2-4.9); Lymphocytes Percent Auto 19.4 % (20-40); Mean Corpuscular HGB Conc 28.9 g/dl (31.0-35.0); Mean Corpuscular Hemoglobin 22.7 pg (27.0-33.0); Mean Corpuscular Volume 78.5 fL (80.0-98.0); Monocytes Absolute Auto 0.6 X10*3/uL (0.1-1.2); Monocytes Percent Auto 7.5 % (2-11); NRBC Pct Auto 0.4 /100WBC (0.0-0.2); Platelet Count 315 X10*3/uL (160-400); Red Cell Distribution Width 19.5 % (11.0-16.0); White Blood Count 7.6 X10*3/uL (4.8-10.8)
[2024-08-04 09:09] LABS: Anion Gap 12 (12-20); Blood Urea Nitrogen 46 mg/dL (9-16); Calcium 8.2 mg/dL (8.4-10.2); Carbon Dioxide 25 mmol/L (22-29); Chloride 103 mmol/L (96-108); Creatinine Clr Calc Pharmacy 33.8; Estimated Glomerular Filt Rate 27; Glucose Random 248 mg/dL (60-115); Potassium 5.4 mmol/L (3.3-5.1); Sodium 135 mmol/L (135-145)
[2024-08-04 11:31] LABS: Glucose, Whole Blood 237 mg/dL (60-115)
--- NOTE | 2024-08-04 15:20 | HO.PM.IMPN ---
Subjective Subjective Date of Service: 08/04/24 Interval History: Symptomatic improvement overnight. Kidney function unchanged Review of Systems Denies chest pain Denies shortness of breath Denies nausea vomiting diarrhea Admits to vaginal pain and dysuric symptoms Physical Exam Vital Signs: Vital Signs: Last Vital Signs Temp 97.5 F 08/04/24 11:43 Pulse 45 L 08/04/24 11:43 Resp 16 08/04/24 11:43 BP 142/65 H 08/04/24 11:43 Pulse Ox 92 08/04/24 11:43 O2 Del Method Nasal Cannula 08/04/24 11:43 O2 Flow Rate 2 08/04/24 11:43 Oxygen Flow Rate 3 08/02/24 14:44 BMI result Body Mass Index 39.4 Const: Other: Awake alert oriented x3 uncomfortable appearing Resp: Other: Clear to auscultation bilaterally no rales rhonchi or wheezes Cardio: Other: No S4; positive S1-S2; no S3 murmurs rubs or gallops GI: Other: Soft nontender nondistended normoactive bowel sounds Extrem: Other: No edema bilaterally Objective Data Active Medications Acetaminophen (Acetaminophen 325 Mg Tablet) 650 mg PO Q6H PRN PRN Reason: Pain, Mild 1-3,fever,headache Last Admin: 08/03/24 08:56 Dose: 650 mg Documented By: LEONEL Apixaban (Apixaban 5 Mg Tablet) 5 mg PO BID [facility] Last Admin: 08/04/24 08:00 Dose: 5 mg Documented By: LUANA Aspirin (Aspirin Enteric Coated 81 Mg Tablet.) 81 mg PO BEDTIME [facility] Last Admin: 08/03/24 22:49 Dose: 81 mg Documented By: MATEO Atorvastatin Calcium (Atorvastatin Calcium 80 Mg Tablet) 80 mg PO BEDTIME [facility] Last Admin: 08/03/24 22:49 Dose: 80 mg Documented By: MATEO Calcium Carbonate (Calcium Carbonate 750 Mg Tab.Chew) 750 mg PO Q4H PRN PRN Reason: Heartburn Calcium Carbonate (Calcium Oyster Shell Elemental 500 Mg Tablet) 500 mg PO BID [facility] Last Admin: 08/04/24 08:00 Dose: 500 mg Documented By: LUANA Ceftriaxone Sodium (Ceftriaxone Sodium 1 Gm Vial) 1 gm IVPUSH Q24H [facility] Last Admin: 08/03/24 17:10 Dose: 1 gm Documented By: LEONEL Duloxetine HCl (Duloxetine Hcl 20 Mg Capsule.Dr) 20 mg PO DAILY [facility] Last Admin: 08/04/24 08:00 Dose: 20 mg Documented By: LUANA Fluconazole (Fluconazole 100 Mg Tablet) 100 mg PO DAILY [facility] Stop: 08/13/24 14:29 Gabapentin (Gabapentin 100 Mg Capsule) 100 mg PO TID [facility] Last Admin: 08/04/24 08:00 Dose: 100 mg Documented By: LUANA Glucose (Glucose Gel 15 Gm Gel..Gram.) 15 gm PO Q15M PRN; Protocol PRN Reason: per Hypoglycemia Standing Ord. Hydroxyzine HCl (Hydroxyzine Hcl 25 Mg Tablet) 25 mg PO Q8H PRN PRN Reason: Anxiety Last Admin: 08/04/24 08:01 Dose: 25 mg Documented By: LUANA Dextrose (D10) 250 mls @ 750 mls/hr IV Q15M PRN; Protocol PRN Reason: per Hypoglycemia Standing Ord. Azithromycin 500 mg/ Sodium (Chloride) 250 mls @ 125 mls/hr IV Q24H [facility] Last Infusion: 08/03/24 23:15 Dose: Infused Documented By: MATEO Insulin Glargine (Insulin Glargine,Hum.Rec.Anlog 100 Unit/Ml 10 Ml Vial) 50 unit SUBCUT BEDTIME [facility] Last Admin: 08/03/24 22:49 Dose: 50 unit Documented By: MATEO Insulin Human Lispro (Insulin Lispro 100 Unit/Ml 3 Ml Vial) 0 unit SUBCUT QIDACHS [facility]; Protocol Last Admin: 08/04/24 11:40 Dose: 4 unit Documented By: LUANA Levothyroxine Sodium (Levothyroxine Sodium 50 Mcg Tablet) 50 mcg PO DAILY@0600 [facility] Last Admin: 08/04/24 05:33 Dose: 50 mcg Documented By: MATEO Magnesium Hydroxide (Milk Of Magnesia 30 Ml Oral.Susp) 30 ml PO DAILY PRN PRN Reason: Constipation Melatonin (Melatonin 3 Mg Tablet) 6 mg PO BEDTIME PRN PRN Reason: Insomnia Last Admin: 08/02/24 21:27 Dose: 6 mg Documented By: MATEO Morphine Sulfate (Morphine Sulfate 4 Mg/Ml Cartridge) 4 mg IVPUSH Q4H PRN; Protocol PRN Reason: Pain, Severe (Pain Scale 7-10) Last Admin: 08/03/24 23:43 Dose: 4 mg Documented By: MATEO Nystatin (Nystatin Powder 15 Gm Bottle) 1 appl TOPICAL BID [facility]; Protocol Last Admin: 08/04/24 07:59 Dose: 1 appl Documented By: LUANA Olanzapine (Olanzapine 10 Mg Vial) 2.5 mg IM ONCE PRN PRN Reason: anxiety/restlessness Omeprazole (Omeprazole 40 Mg Capsule.Dr) 40 mg PO DAILY@0630 [facility] Last Admin: 08/04/24 05:33 Dose: 40 mg Documented By: MATEO Oxycodone HCl (Oxycodone Hcl Immed Release 5 Mg Tablet) 5 mg PO Q6H PRN PRN Reason: Pain, Moderate(Pain Scale 4-6) Last Admin: 08/03/24 10:45 Dose: 5 mg Documented By: LEONEL Paroxetine HCl (Paroxetine Hcl 40 Mg Tablet) 40 mg PO DAILY [facility] Last Admin: 08/04/24 08:00 Dose: 40 mg Documented By: LUANA Sodium Chloride (0.9 % Sodium Chloride Flush 3 Ml Syringe) 3 ml IVFLUSH QSHIFT [facility] Last Admin: 08/04/24 07:59 Dose: 3 ml Documented By: LUANA Torsemide (Torsemide 20 Mg Tablet) 20 mg PO DAILY [facility]; Protocol Last Admin: 08/04/24 08:00 Dose: 20 mg Documented By: LUANA Trazodone HCl (Trazodone Hcl 50 Mg Tablet) 150 mg PO BEDTIME [facility] Last Admin: 08/03/24 23:43 Dose: Not Given Documented By: MATEO Non-Admin Reason: Patient Asleep Triamcinolone Acetonide (Triamcinolone Acet 0.1 % Cream 15 Gm Tube) 1 appl TOPICAL BID PRN; Protocol PRN Reason: leg pain or swelling Labs 08/04/24 08:40 08/04/24 08:40 Labs: Laboratory Results - last 24 hr 08/02/24 08/03/24 08/03/24 15:19 12:35 16:17 MCV MCH MCHC RDW Plt Count MPV Immature Gran % (Auto) Neut % (Auto) Lymph % (Auto) [place] % (Auto) Eos % (Auto) Baso % (Auto) Lymph # (Auto) [place] # (Auto) Eos # (Auto) Baso # (Auto) Abs Immat Gran (auto) Absolute Neuts (auto) Absolute Nucleated RBC Nucleated RBC % (auto) Anion Gap Estim Creat Clear Calc Estimated GFR POC Glucose 307 H Random Glucose Calcium B-Natriuretic Peptide 800 H Blood Type A Positive Antibody Screen NEGATIVE Crossmatch See Detail 08/03/24 08/04/24 08/04/24 20:14 07:34 08:40 MCV 78.5 L D MCH 22.7 L MCHC 28.9 L RDW 19.5 H Plt Count 315 MPV 11.0 Immature Gran % (Auto) 1.1 H Neut % (Auto) 66.0 Lymph % (Auto) 19.4 L [place] % (Auto) 7.5 Eos % (Auto) 4.9 H Baso % (Auto) 1.1 Lymph # (Auto) 1.5 [place] # (Auto) 0.6 Eos # (Auto) 0.4 Baso # (Auto) 0.1 Abs Immat Gran (auto) 0.08 H Absolute Neuts (auto) 5.0 Absolute Nucleated RBC 0.030 H Nucleated RBC % (auto) 0.4 H Anion Gap 12 Estim Creat Clear Calc 33.8 Estimated GFR 27 POC Glucose 239 H 159 H Random Glucose 248 H Calcium 8.2 L B-Natriuretic Peptide Blood Type Antibody Screen Crossmatch 08/04/24 11:25 MCV MCH MCHC RDW Plt Count MPV Immature Gran % (Auto) Neut % (Auto) Lymph % (Auto) [place] % (Auto) Eos % (Auto) Baso % (Auto) Lymph # (Auto) [place] # (Auto) Eos # (Auto) Baso # (Auto) Abs Immat Gran (auto) Absolute Neuts (auto) Absolute Nucleated RBC Nucleated RBC % (auto) Anion Gap Estim Creat Clear Calc Estimated GFR POC Glucose 237 H Random Glucose Calcium B-Natriuretic Peptide Blood Type Antibody Screen Crossmatch Microbiology Microbiology Results: Microbiology 08/02/24 15:28 Urine Culture - Final Urine Catheterized - Straight Catheter Escherichia coli 08/02/24 17:05 Blood Culture - Preliminary Blood - Venous No growth after 24 hours. 08/02/24 16:51 Blood Culture - Preliminary Blood - Venous No growth after 24 hours. Assessment and Plan (1) Acute metabolic encephalopathy: Status: Acute (2) UTI (urinary tract infection): Status: Acute Plan Pt is a 74-year-old female with a PMH significant for paroxysmal AFib on Eliquis s/p cardioversion 06/2023, CAD, HFpEF, HTN, CKD 3, insulin-dependent type 2 diabetes, asthma, and hypothyroidism who presents to the ED with?multiple complaints though primarily due to intractable hyperglycemia. Pt also has been complaining of vaginal itching and burning sensation with urination. Family note patient has seemed altered and ?not herself? for the past 2 days. Pt will be admitted to the hospital for treatment and further evaluation of acute metabolic encephalopathy in the setting of UTI and possible pneumonia. 1.Acute metabolic encephalopathy in the setting of acute UTI -improved since admission and response to ceftriaxone (3) -culture ... E coli sensitive to ceftriaxone -adjust therapies when ID complete 2. Anemia -responded to transfusion -follow CBC in a.m. 3.Vaginal candidiasis -Diflucan 200 mg IV x1 dose -continue 100 mg p.o. daily x9 days. .. 4.Bradycardia -asymptomatic at this time -appreciate Cardiology input; conservative at this time. -meds adjusted 5. Bilateral pneumonia (verified by CT) -ceftriaxone (3) azithromycin (3) 6.Insulin-dependent type 2 diabetes with hyperglycemia -continues with poorly controlled sugars -continue lispro correctional scale -add Lantus 20 units tomorrow a.m. -adjust therapies as indicated 7.Hypothyroidism -TSH elevated at 31.45, free T4 WNL at 0.88 - levothyroxine at outpatient dosing -follow up as outpatient 8.HFpEF -stable and well compensated 9.Paroxysmal AFib -acceptable control -Eliquis -amiodarone/metoprolol held secondary to bradycardia -add back when clinically indicated 10..HTN -acceptable control off therapies -follow clinically Full Code Eliquis Requires ongoing hospitalization for IV antibiotics to treat bilateral pneumonia Quality Stroke Does the patient have a stroke diagnosis?: No VTE Prior VTE?: No VTE Risk Level:: Medical - moderate - high VTE Device Contraindication: Treatment Not Indicated VTE Drug Contraindication: N/A - Med Ordered
[2024-08-04 16:19] LABS: Glucose, Whole Blood 287 mg/dL (60-115)
[2024-08-04] MEDS: Fluconazole 100 MG TABLET PO (16:19)
[2024-08-04] MEDS: cefTRIAXone sodium 1 GM VIAL IVPUSH (17:07)
--- NOTE | 2024-08-04 18:03 | P.CDIM_ITS ---
PROVIDER RESPONSE TEXT: To clarify, the appropriate diagnosis supported by the clinical indicators: Obesity Due to excess calories QUERY TEXT: PHYSICIAN'S DOCUMENTATION REQUEST Date of Query: 08/04/2024 07:57 AM EST Patient Name: Mary Lou Godwin Admit Date: 08/02/2024 Dear Bruce Torres DO, A review of the medical record indicates additional documentation may be needed. Please review below and update the documentation accordingly. Clinical Indicators: Height: 5ft 6in Weight: 110.7kg BMI: 39.4 If possible, please provide an associated diagnosis related to the abnormal BMI, such as: Overweight Obesity Due to excess calories Obesity Due to other cause Specify the other cause Other Other (explain) Clinically unable to determine (explain) Thank you, Elena Dalal, CCS, CDIS Use of terms such as suspected, likely, concern for, or probable (associated with a specific diagnosi s that is being evaluated, monitored, or treated as if it exists) are acceptable and can be coded in the inpatient se tting, when documented at the time of discharge. Please use your independent medical judgment in providing your response. THIS QUERY IS PART OF THE PERMANENT MEDICAL RECORD
[2024-08-04] MEDS: Azithromycin 500 MG in 0.9 % Sodium Chloride 250 ML 125 MG IV (18:36)
[2024-08-04] MEDS: Aspirin Enteric Coated 81 MG TABLET.DR PO (19:54)
[2024-08-04] MEDS: Atorvastatin Calcium 80 MG TABLET PO (19:54)
[2024-08-04] MEDS: traZODone HCL 50 MG TABLET 150 MG PO (19:55)
[2024-08-04 21:04] LABS: Glucose, Whole Blood 353 mg/dL (60-115)
[2024-08-04] MEDS: Insulin Glargine,Hum.rec.anlog 100 UNIT/ML 10 ML VIAL 50 UNIT SUBCUT (21:36)
[2024-08-05] MEDS: 0.9 % Sodium Chloride Flush 3 ML SYRINGE IVFLUSH ×4 (00:03→21:29)
[2024-08-05 04:00] VITALS: BP 148/66; PULSE 64; RESP 17; TEMP 36.2; O2SAT 95
--- NOTE | 2024-08-05 04:46 | PC.NURSE ---
Assumed care of patient at 23:00 Report provided PHILLIP Banks.
[2024-08-05] MEDS: Omeprazole 40 MG CAPSULE.DR PO (06:05)
[2024-08-05] MEDS: Levothyroxine Sodium 50 MCG TABLET PO (06:05)
[2024-08-05 06:56] LABS: MANUAL DIFF FLAG NO
[2024-08-05 07:01] LABS: Basophils Absolute Auto 0.1 X10*3/uL (0.0-0.2); Eosinophils Absolute Auto 0.4 X10*3/uL (0.0-0.4); Eosinophils Percent Auto 4.5 % (0-4); Hematocrit 31.3 % (37.0-47.0); Hemoglobin 9.3 g/dl (12.0-16.0); Imm Gran Abs Auto 0.08 X10*3/uL (0.00-0.03); Lymphocytes Absolute Auto 1.3 X10*3/uL (1.2-4.9); Lymphocytes Percent Auto 16.9 % (20-40); Mean Corpuscular HGB Conc 29.7 g/dl (31.0-35.0); Mean Corpuscular Hemoglobin 23.3 pg (27.0-33.0); Mean Corpuscular Volume 78.4 fL (80.0-98.0); Monocytes Absolute Auto 0.5 X10*3/uL (0.1-1.2); Monocytes Percent Auto 6.6 % (2-11); NRBC Pct Auto 0.4 /100WBC (0.0-0.2); Neutrophils Absolute Auto 5.4 x10*3/uL (2.0-8.3); Platelet Count 334 X10*3/uL (160-400); Red Blood Count 3.99 X10*6/uL (4.20-5.50); Red Cell Distribution Width 19.5 % (11.0-16.0); White Blood Count 7.7 X10*3/uL (4.8-10.8)
[2024-08-05 07:03] VITALS: BP 124/61; PULSE 46; RESP 20; TEMP 36.1; O2SAT 95
[2024-08-05 07:16] LABS: Glucose, Whole Blood 176 mg/dL (60-115)
[2024-08-05 07:24] LABS: Anion Gap 9 (12-20); Blood Urea Nitrogen 56 mg/dL (9-16); Calcium 8.5 mg/dL (8.4-10.2); Carbon Dioxide 33 mmol/L (22-29); Chloride 102 mmol/L (96-108); Creatinine Clr Calc Pharmacy 26.2; Estimated Glomerular Filt Rate 20; Glucose Random 187 mg/dL (60-115); Potassium 5.5 mmol/L (3.3-5.1); Sodium 138 mmol/L (135-145)
[2024-08-05] MEDS: Sodium Zirconium Cyclosilicate 10 GM POWD.PACK PO (08:12)
[2024-08-05] MEDS: Apixaban 5 MG TABLET PO ×2 (08:12→21:26)
[2024-08-05] MEDS: DULoxetine HCl 20 MG CAPSULE.DR PO (08:12)
[2024-08-05] MEDS: Fluconazole 100 MG TABLET PO (08:12)
[2024-08-05] MEDS: Torsemide 20 MG TABLET PO (08:12)
[2024-08-05] MEDS: Calcium Oyster Shell Elemental 500 MG TABLET PO ×2 (08:12→21:26)
[2024-08-05] MEDS: PARoxetine HCL 40 MG TABLET PO (08:13)
[2024-08-05] MEDS: Gabapentin 100 MG CAPSULE PO ×3 (08:13→21:26)
[2024-08-05] MEDS: Insulin Lispro 100 UNIT/ML 3 ML VIAL SUBCUT ×4 (08:13→21:28)
[2024-08-05] MEDS: Nystatin Powder 15 GM BOTTLE 1 APPL TOPICAL ×2 (08:21→22:43)
[2024-08-05 10:56] VITALS: BP 128/56; PULSE 48; RESP 20; TEMP 36.1; O2SAT 98
[2024-08-05 10:57] LABS: Glucose, Whole Blood 176 mg/dL (60-115)
--- NOTE | 2024-08-05 12:30 | HO.PM.IMPN ---
Subjective Subjective Date of Service: 08/05/24 Interval History: No acute issues overnight. Good response to Diflucan Review of Systems Denies chest pain Denies shortness of breath Denies nausea vomiting diarrhea Admits to vaginal pain and dysuric symptoms Physical Exam Vital Signs: Vital Signs: Last Vital Signs Temp 97.0 F 08/05/24 10:56 Pulse 48 L 08/05/24 10:56 Resp 20 08/05/24 10:56 BP 128/56 L 08/05/24 10:56 Pulse Ox 98 08/05/24 10:56 O2 Del Method Nasal Cannula 08/05/24 10:56 O2 Flow Rate 3 08/05/24 10:56 Oxygen Flow Rate 3 08/02/24 14:44 BMI result Body Mass Index 39.4 Const: Other: Awake alert oriented x3 uncomfortable appearing Resp: Other: Clear to auscultation bilaterally no rales rhonchi or wheezes Cardio: Other: No S4; positive S1-S2; no S3 murmurs rubs or gallops GI: Other: Soft nontender nondistended normoactive bowel sounds Extrem: Other: No edema bilaterally Objective Data Active Medications Acetaminophen (Acetaminophen 325 Mg Tablet) 650 mg PO Q6H PRN PRN Reason: Pain, Mild 1-3,fever,headache Last Admin: 08/03/24 08:56 Dose: 650 mg Documented By: LEONEL Apixaban (Apixaban 5 Mg Tablet) 5 mg PO BID [facility] Last Admin: 08/05/24 08:12 Dose: 5 mg Documented By: CHERYL Aspirin (Aspirin Enteric Coated 81 Mg Tablet.) 81 mg PO BEDTIME [facility] Last Admin: 08/04/24 19:54 Dose: 81 mg Documented By: BRANNON Atorvastatin Calcium (Atorvastatin Calcium 80 Mg Tablet) 80 mg PO BEDTIME [facility] Last Admin: 08/04/24 19:54 Dose: 80 mg Documented By: BRANNON Calcium Carbonate (Calcium Carbonate 750 Mg Tab.Chew) 750 mg PO Q4H PRN PRN Reason: Heartburn Calcium Carbonate (Calcium Oyster Shell Elemental 500 Mg Tablet) 500 mg PO BID [facility] Last Admin: 08/05/24 08:12 Dose: 500 mg Documented By: CHERYL Ceftriaxone Sodium (Ceftriaxone Sodium 1 Gm Vial) 1 gm IVPUSH Q24H [facility] Last Admin: 08/04/24 17:07 Dose: 1 gm Documented By: LUANA Duloxetine HCl (Duloxetine Hcl 20 Mg Capsule.Dr) 20 mg PO DAILY [facility] Last Admin: 08/05/24 08:12 Dose: 20 mg Documented By: CHERYL Fluconazole (Fluconazole 100 Mg Tablet) 100 mg PO DAILY [facility] Stop: 08/13/24 14:29 Last Admin: 08/05/24 08:12 Dose: 100 mg Documented By: CHERYL Gabapentin (Gabapentin 100 Mg Capsule) 100 mg PO TID [facility] Last Admin: 08/05/24 08:13 Dose: 100 mg Documented By: CHERYL Glucose (Glucose Gel 15 Gm Gel..Gram.) 15 gm PO Q15M PRN; Protocol PRN Reason: per Hypoglycemia Standing Ord. Hydroxyzine HCl (Hydroxyzine Hcl 25 Mg Tablet) 25 mg PO Q8H PRN PRN Reason: Anxiety Last Admin: 08/04/24 18:10 Dose: 25 mg Documented By: ISAAC Dextrose (D10) 250 mls @ 750 mls/hr IV Q15M PRN; Protocol PRN Reason: per Hypoglycemia Standing Ord. Azithromycin 500 mg/ Sodium (Chloride) 250 mls @ 125 mls/hr IV Q24H [facility] Last Infusion: 08/04/24 21:39 Dose: Infused Documented By: BRANNON Insulin Glargine (Insulin Glargine,Hum.Rec.Anlog 100 Unit/Ml 10 Ml Vial) 50 unit SUBCUT BEDTIME [facility] Last Admin: 08/04/24 21:36 Dose: 50 unit Documented By: BRANNON Insulin Human Lispro (Insulin Lispro 100 Unit/Ml 3 Ml Vial) 0 unit SUBCUT QIDACHS [facility]; Protocol Last Admin: 08/05/24 12:20 Dose: 2 unit Documented By: CHERYL Levothyroxine Sodium (Levothyroxine Sodium 50 Mcg Tablet) 50 mcg PO DAILY@0600 [facility] Last Admin: 08/05/24 06:05 Dose: 50 mcg Documented By: AMIE Magnesium Hydroxide (Milk Of Magnesia 30 Ml Oral.Susp) 30 ml PO DAILY PRN PRN Reason: Constipation Melatonin (Melatonin 3 Mg Tablet) 6 mg PO BEDTIME PRN PRN Reason: Insomnia Last Admin: 08/02/24 21:27 Dose: 6 mg Documented By: MATEO Morphine Sulfate (Morphine Sulfate 4 Mg/Ml Cartridge) 4 mg IVPUSH Q4H PRN; Protocol PRN Reason: Pain, Severe (Pain Scale 7-10) Last Admin: 08/03/24 23:43 Dose: 4 mg Documented By: MATEO Nystatin (Nystatin Powder 15 Gm Bottle) 1 appl TOPICAL BID JULIANNE; Protocol Last Admin: 08/05/24 08:21 Dose: 1 appl Documented By: CHERYL Olanzapine (Olanzapine 10 Mg Vial) 2.5 mg IM ONCE PRN PRN Reason: anxiety/restlessness Omeprazole (Omeprazole 40 Mg Capsule.Dr) 40 mg PO DAILY@0630 [facility] Last Admin: 08/05/24 06:05 Dose: 40 mg Documented By: AMIE Oxycodone HCl (Oxycodone Hcl Immed Release 5 Mg Tablet) 5 mg PO Q6H PRN PRN Reason: Pain, Moderate(Pain Scale 4-6) Last Admin: 08/03/24 10:45 Dose: 5 mg Documented By: LEONEL Paroxetine HCl (Paroxetine Hcl 40 Mg Tablet) 40 mg PO DAILY [facility] Last Admin: 08/05/24 08:13 Dose: 40 mg Documented By: CHERYL Sodium Chloride (0.9 % Sodium Chloride Flush 3 Ml Syringe) [facility] Last Admin: 08/05/24 08:13 Dose: 3 ml Documented By: CHERYL Torsemide (Torsemide 20 Mg Tablet) 20 mg PO DAILY [facility]; Protocol Last Admin: 08/05/24 08:12 Dose: 20 mg Documented By: CHERYL Trazodone HCl (Trazodone Hcl 50 Mg Tablet) 150 mg PO BEDTIME [facility] Last Admin: 08/04/24 19:55 Dose: 150 mg Documented By: BRANNON Triamcinolone Acetonide (Triamcinolone Acet 0.1 % Cream 15 Gm Tube) 1 appl TOPICAL BID PRN; Protocol PRN Reason: leg pain or swelling Labs 08/05/24 06:10 08/05/24 06:10 Labs: Laboratory Results - last 24 hr 08/04/24 08/04/24 08/05/24 16:14 20:53 06:10 MCV 78.4 L MCH 23.3 L MCHC 29.7 L RDW 19.5 H Plt Count 334 MPV 11.0 Immature Gran % (Auto) 1.0 H Neut % (Auto) 70.0 Lymph % (Auto) 16.9 L [place] % (Auto) 6.6 Eos % (Auto) 4.5 H Baso % (Auto) 1.0 Lymph # (Auto) 1.3 [place] # (Auto) 0.5 Eos # (Auto) 0.4 Baso # (Auto) 0.1 Abs Immat Gran (auto) 0.08 H Absolute Neuts (auto) 5.4 Absolute Nucleated RBC 0.030 H Nucleated RBC % (auto) 0.4 H Anion Gap 9 L Estim Creat Clear Calc 26.2 Estimated GFR 20 POC Glucose 287 H 353 H* Random Glucose 187 H Calcium 8.5 08/05/24 08/05/24 07:10 10:53 MCV MCH MCHC RDW Plt Count MPV Immature Gran % (Auto) Neut % (Auto) Lymph % (Auto) [place] % (Auto) Eos % (Auto) Baso % (Auto) Lymph # (Auto) [place] # (Auto) Eos # (Auto) Baso # (Auto) Abs Immat Gran (auto) Absolute Neuts (auto) Absolute Nucleated RBC Nucleated RBC % (auto) Anion Gap Estim Creat Clear Calc Estimated GFR POC Glucose 176 H 176 H Random Glucose Calcium Microbiology Microbiology Results: Microbiology 08/02/24 17:05 Blood Culture - Preliminary Blood - Venous No growth after 48 hours. 08/02/24 16:51 Blood Culture - Preliminary Blood - Venous No growth after 48 hours. 08/02/24 15:28 Urine Culture - Final Urine Catheterized - Straight Catheter Escherichia coli Assessment and Plan (1) Acute metabolic encephalopathy: Status: Acute (2) CKD (chronic kidney disease): Status: Acute (3) CKD stage 3 due to type 2 diabetes mellitus: Status: Acute Plan Pt is a 74-year-old female with a PMH significant for paroxysmal AFib on Eliquis s/p cardioversion 06/2023, CAD, HFpEF, HTN, CKD 3, insulin-dependent type 2 diabetes, asthma, and hypothyroidism who presents to the ED with?multiple complaints though primarily due to intractable hyperglycemia. Pt also has been complaining of vaginal itching and burning sensation with urination. Family note patient has seemed altered and ?not herself? for the past 2 days. Pt will be admitted to the hospital for treatment and further evaluation of acute metabolic encephalopathy in the setting of UTI and possible pneumonia. 1.Acute metabolic encephalopathy in the setting of acute UTI (acute metabolic encephalopathy resolved) -ceftriaxone (4)... -culture ... E coli sensitive to ceftriaxone 2. Anemia -responded to transfusion -hemoglobin stable 3.Vaginal candidiasis -Diflucan 200 mg IV x1 dose -continue 100 mg p.o. daily(09/17) 4.Bradycardia -asymptomatic at this time -conservatives at this time. -meds adjusted 5. Bilateral pneumonia (verified by CT) -ceftriaxone (4) azithromycin (4) 6.Insulin-dependent type 2 diabetes with hyperglycemia -continues with poorly controlled sugars -continue lispro correctional scale -adjust therapies as indicated 7.Hypothyroidism -TSH elevated at 31.45, free T4 WNL at 0.88 - levothyroxine at outpatient dosing -follow up as outpatient 8.HFpEF -stable and well compensated 9.Paroxysmal AFib -acceptable control -Eliquis -amiodarone/metoprolol held secondary to bradycardia -add back when clinically indicated 10..HTN -acceptable control off therapies -follow clinically Full Code Eliquis Requires ongoing hospitalization for IV antibiotics to treat bilateral pneumonia Quality Stroke Does the patient have a stroke diagnosis?: No VTE Prior VTE?: No VTE Risk Level:: Medical - moderate - high VTE Device Contraindication: Treatment Not Indicated VTE Drug Contraindication: N/A - Med Ordered
[2024-08-05 15:11] VITALS: BP 103/54; PULSE 54; RESP 18; TEMP 36.3; O2SAT 100
[2024-08-05 15:44] LABS: Glucose, Whole Blood 277 mg/dL (60-115)
[2024-08-05] MEDS: cefTRIAXone sodium 1 GM VIAL IVPUSH (17:52)
[2024-08-05 19:47] VITALS: BP 101/53; PULSE 53; RESP 18; TEMP 36.2; O2SAT 97
[2024-08-05 20:53] LABS: Glucose, Whole Blood 276 mg/dL (60-115)
[2024-08-05] MEDS: Atorvastatin Calcium 80 MG TABLET PO (21:26)
[2024-08-05] MEDS: Aspirin Enteric Coated 81 MG TABLET.DR PO (21:26)
[2024-08-05] MEDS: traZODone HCL 50 MG TABLET 150 MG PO (21:26)
[2024-08-05] MEDS: Melatonin 3 MG TABLET 6 MG PO (21:26)
[2024-08-05] MEDS: hydrOXYzine HCL 25 MG TABLET PO (21:26)
[2024-08-05] MEDS: Insulin Glargine,Hum.rec.anlog 100 UNIT/ML 10 ML VIAL 50 UNIT SUBCUT (21:28)
[2024-08-05] MEDS: Azithromycin 500 MG in 0.9 % Sodium Chloride 250 ML 125 MG IV (21:29)
[2024-08-05 23:49] VITALS: BP 122/59; PULSE 53; RESP 18; TEMP 36.1; O2SAT 99
[2024-08-06 03:52] VITALS: BP 127/86; PULSE 49; RESP 18; TEMP 36.1; O2SAT 98
[2024-08-06 05:54] LABS: MANUAL DIFF FLAG NO
[2024-08-06] MEDS: Omeprazole 40 MG CAPSULE.DR PO (06:25)
[2024-08-06] MEDS: Levothyroxine Sodium 50 MCG TABLET PO (06:25)
[2024-08-06 06:28] LABS: Basophils Absolute Auto 0.1 X10*3/uL (0.0-0.2); Eosinophils Absolute Auto 0.3 X10*3/uL (0.0-0.4); Eosinophils Percent Auto 4.4 % (0-4); Hematocrit 32.8 % (37.0-47.0); Hemoglobin 9.8 g/dl (12.0-16.0); Imm Gran Abs Auto 0.07 X10*3/uL (0.00-0.03); Lymphocytes Absolute Auto 1.3 X10*3/uL (1.2-4.9); Lymphocytes Percent Auto 18.7 % (20-40); Mean Corpuscular HGB Conc 29.9 g/dl (31.0-35.0); Mean Corpuscular Hemoglobin 23.4 pg (27.0-33.0); Mean Corpuscular Volume 78.3 fL (80.0-98.0); Mean Platelet Volume 10.9 fL (9.4-12.3); Monocytes Absolute Auto 0.5 X10*3/uL (0.1-1.2); Monocytes Percent Auto 7.6 % (2-11); NRBC Pct Auto 0.3 /100WBC (0.0-0.2); Neutrophils Absolute Auto 4.7 x10*3/uL (2.0-8.3); Neutrophils Percent Auto 67.3 % (45-73); Platelet Count 352 X10*3/uL (160-400); Red Blood Count 4.19 X10*6/uL (4.20-5.50); Red Cell Distribution Width 19.9 % (11.0-16.0)
[2024-08-06 07:32] LABS: Glucose, Whole Blood 124 mg/dL (60-115)
[2024-08-06 08:00] VITALS: PULSE 62; RESP 20; TEMP 36.3; O2SAT 96
[2024-08-06] MEDS: Apixaban 5 MG TABLET PO ×2 (08:19→20:21)
[2024-08-06] MEDS: Gabapentin 100 MG CAPSULE PO ×3 (08:19→20:21)
[2024-08-06] MEDS: Torsemide 20 MG TABLET PO (08:19)
[2024-08-06] MEDS: PARoxetine HCL 40 MG TABLET PO (08:19)
[2024-08-06] MEDS: Fluconazole 100 MG TABLET PO (08:19)
[2024-08-06] MEDS: DULoxetine HCl 20 MG CAPSULE.DR PO (08:20)
[2024-08-06] MEDS: Calcium Oyster Shell Elemental 500 MG TABLET PO ×2 (08:20→20:21)
[2024-08-06] MEDS: 0.9 % Sodium Chloride Flush 3 ML SYRINGE IVFLUSH ×3 (08:20→20:22)
[2024-08-06] MEDS: Nystatin Powder 15 GM BOTTLE 1 APPL TOPICAL (08:21)
[2024-08-06 11:41] VITALS: PULSE 72; RESP 20; TEMP 36.5; O2SAT 94
[2024-08-06 11:50] LABS: Glucose, Whole Blood 186 mg/dL (60-115)
[2024-08-06] MEDS: Insulin Lispro 100 UNIT/ML 3 ML VIAL SUBCUT ×3 (11:59→22:20)
--- NOTE | 2024-08-06 12:23 | HO.PM.IMPN ---
Subjective Subjective Date of Service: 08/06/24 Interval History: Continues to improve. No acute issues Review of Systems Denies chest pain Denies shortness of breath Denies nausea vomiting diarrhea Admits to vaginal pain and dysuric symptoms Physical Exam Vital Signs: Vital Signs: Last Vital Signs Temp 97.7 F 08/06/24 11:41 Pulse 72 08/06/24 11:41 Resp 20 08/06/24 11:41 BP 127/86 08/06/24 03:52 Pulse Ox 94 08/06/24 11:41 O2 Del Method Nasal Cannula 08/06/24 11:41 O2 Flow Rate 2 08/06/24 11:41 Oxygen Flow Rate 3 08/02/24 14:44 BMI result Body Mass Index 39.4 Const: Other: Awake alert oriented x3 uncomfortable appearing Resp: Other: Clear to auscultation bilaterally no rales rhonchi or wheezes Cardio: Other: No S4; positive S1-S2; no S3 murmurs rubs or gallops GI: Other: Soft nontender nondistended normoactive bowel sounds Extrem: Other: No edema bilaterally Objective Data Active Medications Acetaminophen (Acetaminophen 325 Mg Tablet) 650 mg PO Q6H PRN PRN Reason: Pain, Mild 1-3,fever,headache Last Admin: 08/03/24 08:56 Dose: 650 mg Documented By: LEONEL Apixaban (Apixaban 5 Mg Tablet) 5 mg PO BID [facility] Last Admin: 08/06/24 08:19 Dose: 5 mg Documented By: CHERYL Aspirin (Aspirin Enteric Coated 81 Mg Tablet.Dr) 81 mg PO BEDTIME [facility] Last Admin: 08/05/24 21:26 Dose: 81 mg Documented By: GILMA Atorvastatin Calcium (Atorvastatin Calcium 80 Mg Tablet) 80 mg PO BEDTIME [facility] Last Admin: 08/05/24 21:26 Dose: 80 mg Documented By: GILMA Calcium Carbonate (Calcium Carbonate 750 Mg Tab.Chew) 750 mg PO Q4H PRN PRN Reason: Heartburn Calcium Carbonate (Calcium Oyster Shell Elemental 500 Mg Tablet) 500 mg PO BID [facility] Last Admin: 08/06/24 08:20 Dose: 500 mg Documented By: CHERYL Ceftriaxone Sodium (Ceftriaxone Sodium 1 Gm Vial) 1 gm IVPUSH Q24H [facility] Last Admin: 08/05/24 17:52 Dose: 1 gm Documented By: CHERYL Duloxetine HCl (Duloxetine Hcl 20 Mg Capsule.Dr) 20 mg PO DAILY [facility] Last Admin: 08/06/24 08:20 Dose: 20 mg Documented By: CHERYL Fluconazole (Fluconazole 100 Mg Tablet) 100 mg PO DAILY [facility] Stop: 08/13/24 14:29 Last Admin: 08/06/24 08:19 Dose: 100 mg Documented By: CHERYL Gabapentin (Gabapentin 100 Mg Capsule) 100 mg PO TID [facility] Last Admin: 08/06/24 08:19 Dose: 100 mg Documented By: CHERYL Glucose (Glucose Gel 15 Gm Gel..Gram.) 15 gm PO Q15M PRN; Protocol PRN Reason: per Hypoglycemia Standing Ord. Hydroxyzine HCl (Hydroxyzine Hcl 25 Mg Tablet) 25 mg PO Q8H PRN PRN Reason: Anxiety Last Admin: 08/05/24 21:26 Dose: 25 mg Documented By: GILMA Dextrose (D10) 250 mls @ 750 mls/hr IV Q15M PRN; Protocol PRN Reason: per Hypoglycemia Standing Ord. Azithromycin 500 mg/ Sodium (Chloride) 250 mls @ 125 mls/hr IV Q24H [facility] Last Infusion: 08/05/24 23:29 Dose: Infused Documented By: GILMA Insulin Glargine (Insulin Glargine,Hum.Rec.Anlog 100 Unit/Ml 10 Ml Vial) 50 unit SUBCUT BEDTIME [facility] Last Admin: 08/05/24 21:28 Dose: 50 unit Documented By: GILMA Insulin Human Lispro (Insulin Lispro 100 Unit/Ml 3 Ml Vial) 0 unit SUBCUT QIDACHS [facility]; Protocol Last Admin: 08/06/24 11:59 Dose: 2 unit Documented By: CHERYL Levothyroxine Sodium (Levothyroxine Sodium 50 Mcg Tablet) 50 mcg PO DAILY@0600 [facility] Last Admin: 08/06/24 06:25 Dose: 50 mcg Documented By: GILMA Magnesium Hydroxide (Milk Of Magnesia 30 Ml Oral.Susp) 30 ml PO DAILY PRN PRN Reason: Constipation Melatonin (Melatonin 3 Mg Tablet) 6 mg PO BEDTIME PRN PRN Reason: Insomnia Last Admin: 08/05/24 21:26 Dose: 6 mg Documented By: GILMA Morphine Sulfate (Morphine Sulfate 4 Mg/Ml Cartridge) 4 mg IVPUSH Q4H PRN; Protocol PRN Reason: Pain, Severe (Pain Scale 7-10) Last Admin: 08/03/24 23:43 Dose: 4 mg Documented By: MATEO Nystatin (Nystatin Powder 15 Gm Bottle) 1 appl TOPICAL BID JULIANNE; Protocol Last Admin: 08/06/24 08:21 Dose: 1 appl Documented By: CHERYL Olanzapine (Olanzapine 10 Mg Vial) 2.5 mg IM ONCE PRN PRN Reason: anxiety/restlessness Omeprazole (Omeprazole 40 Mg Capsule.Dr) 40 mg PO DAILY@0630 [facility] Last Admin: 08/06/24 06:25 Dose: 40 mg Documented By: GILMA Oxycodone HCl (Oxycodone Hcl Immed Release 5 Mg Tablet) 5 mg PO Q6H PRN PRN Reason: Pain, Moderate(Pain Scale 4-6) Last Admin: 08/03/24 10:45 Dose: 5 mg Documented By: LEONEL Paroxetine HCl (Paroxetine Hcl 40 Mg Tablet) 40 mg PO DAILY [facility] Last Admin: 08/06/24 08:19 Dose: 40 mg Documented By: CHERYL Sodium Chloride (0.9 % Sodium Chloride Flush 3 Ml Syringe) 3 ml IVFLUSH [facility] Last Admin: 08/06/24 08:20 Dose: 3 ml Documented By: CHERYL Torsemide (Torsemide 20 Mg Tablet) 20 mg PO DAILY [facility]; Protocol Last Admin: 08/06/24 08:19 Dose: 20 mg Documented By: CHERYL Trazodone HCl (Trazodone Hcl 50 Mg Tablet) 150 mg PO BEDTIME [facility] Last Admin: 08/05/24 21:26 Dose: 150 mg Documented By: GILMA Triamcinolone Acetonide (Triamcinolone Acet 0.1 % Cream 15 Gm Tube) 1 appl TOPICAL BID PRN; Protocol PRN Reason: leg pain or swelling Labs 08/06/24 05:44 08/05/24 06:10 Labs: Laboratory Results - last 24 hr 08/05/24 08/05/24 08/06/24 15:39 20:08 05:44 MCV 78.3 L MCH 23.4 L MCHC 29.9 L RDW 19.9 H Plt Count 352 MPV 10.9 Immature Gran % (Auto) 1.0 H Neut % (Auto) 67.3 Lymph % (Auto) 18.7 L [place] % (Auto) 7.6 Eos % (Auto) 4.4 H Baso % (Auto) 1.0 Lymph # (Auto) 1.3 [place] # (Auto) 0.5 Eos # (Auto) 0.3 Baso # (Auto) 0.1 Abs Immat Gran (auto) 0.07 H Absolute Neuts (auto) 4.7 Absolute Nucleated RBC 0.020 H Nucleated RBC % (auto) 0.3 H POC Glucose 277 H 276 H 08/06/24 08/06/24 07:28 11:41 MCV MCH MCHC RDW Plt Count MPV Immature Gran % (Auto) Neut % (Auto) Lymph % (Auto) [place] % (Auto) Eos % (Auto) Baso % (Auto) Lymph # (Auto) [place] # (Auto) Eos # (Auto) Baso # (Auto) Abs Immat Gran (auto) Absolute Neuts (auto) Absolute Nucleated RBC Nucleated RBC % (auto) POC Glucose 124 H 186 H Assessment and Plan (1) UTI (urinary tract infection): Status: Acute (2) Acute metabolic encephalopathy: Status: Acute Plan Pt is a 74-year-old female with a PMH significant for paroxysmal AFib on Eliquis s/p cardioversion 06/2023, CAD, HFpEF, HTN, CKD 3, insulin-dependent type 2 diabetes, asthma, and hypothyroidism who presents to the ED with?multiple complaints though primarily due to intractable hyperglycemia. Pt also has been complaining of vaginal itching and burning sensation with urination. Family note patient has seemed altered and ?not herself? for the past 2 days. Pt will be admitted to the hospital for treatment and further evaluation of acute metabolic encephalopathy in the setting of UTI and possible pneumonia. 1.Acute metabolic encephalopathy in the setting of acute UTI (acute metabolic encephalopathy resolved) -ceftriaxone (5)... -culture ... E coli sensitive to ceftriaxone -switch to p.o. in a.m. 2. Anemia -responded to transfusion -hemoglobin stable 3.Vaginal candidiasis -Diflucan 200 mg IV x1 dose -continue 100 mg p.o. daily(10/15) 4.Bradycardia -asymptomatic at this time -conservatives at this time. -meds adjusted 5. Bilateral pneumonia (verified by CT) -ceftriaxone (5) azithromycin (5) 6.Insulin-dependent type 2 diabetes with hyperglycemia -continues with poorly controlled sugars -continue lispro correctional scale -adjust therapies as indicated 7.Hypothyroidism -TSH elevated at 31.45, free T4 WNL at 0.88 - levothyroxine at outpatient dosing -follow up as outpatient 8.HFpEF -stable and well compensated 9.Paroxysmal AFib -acceptable control -Eliquis -amiodarone/metoprolol held secondary to bradycardia -add back when clinically indicated 10..HTN -acceptable control off therapies -follow clinically Full Code Eliquis Requires ongoing hospitalization for IV antibiotics to treat bilateral pneumonia Quality Stroke Does the patient have a stroke diagnosis?: No VTE Prior VTE?: No VTE Risk Level:: Medical - moderate - high VTE Device Contraindication: Treatment Not Indicated VTE Drug Contraindication: N/A - Med Ordered
[2024-08-06] MEDS: hydrOXYzine HCL 25 MG TABLET PO (14:16)
[2024-08-06] MEDS: oxyCODONE HCl Immed Release 5 MG TABLET PO (14:18)
[2024-08-06 15:17] VITALS: BP 113/53; PULSE 55; RESP 18; TEMP 36.3; O2SAT 96
[2024-08-06] MEDS: cefTRIAXone sodium 1 GM VIAL IVPUSH (17:54)
[2024-08-06 20:00] VITALS: BP 114/50; PULSE 53; RESP 18; TEMP 36.6; O2SAT 97
[2024-08-06] MEDS: Atorvastatin Calcium 80 MG TABLET PO (20:21)
[2024-08-06] MEDS: Azithromycin 500 MG in 0.9 % Sodium Chloride 250 ML 125 MG IV (20:21)
[2024-08-06] MEDS: Aspirin Enteric Coated 81 MG TABLET.DR PO (20:21)
[2024-08-06] MEDS: Insulin Glargine,Hum.rec.anlog 100 UNIT/ML 10 ML VIAL 50 UNIT SUBCUT (20:22)
[2024-08-06 21:47] LABS: Glucose, Whole Blood 184 mg/dL (60-115)
[2024-08-07] VITALS: BP 140/63; PULSE 48; RESP 20; TEMP 36.2; O2SAT 96
[2024-08-07 04:00] VITALS: BP 147/67; PULSE 53; RESP 20; TEMP 36.2; O2SAT 98
[2024-08-07] MEDS: Levothyroxine Sodium 50 MCG TABLET PO (05:21)
[2024-08-07] MEDS: Omeprazole 40 MG CAPSULE.DR PO (05:21)
[2024-08-07 07:47] LABS: Glucose, Whole Blood 143 mg/dL (60-115)
[2024-08-07 08:00] VITALS: BP 127/57; PULSE 51; RESP 18; TEMP 36.5; O2SAT 97
--- NOTE | 2024-08-07 11:38 | PM.DS ---
DS: Providers Provider Date of Service: 08/07/24 Date of admission: 08/02/24 17:07 Date of discharge: 08/07/24 Primary care physician: Amanda Myers MD Consults: 08/03/24 04:25 Consult to Wound Care Routine Reason for consultation: Chronic left lower wound need to evaluate for updated treatment. Has provider been notified: Yes DS: Diagnosis Discharge Diagnosis (1) UTI (urinary tract infection): Status: Acute (2) Acute metabolic encephalopathy: Status: Acute DS: Summary Hospital Course Hospital Course: 74-year-old female with a PMH significant for paroxysmal AFib on Eliquis s/p cardioversion 06/2023, CAD, HFpEF, HTN, CKD 3, insulin-dependent type 2 diabetes, asthma, and hypothyroidism who presents to the ED with?multiple complaints though primarily due to intractable hyperglycemia. Family reports home blood glucose monitor reading came back only as high . Pt also has been complaining of vaginal itching and burning sensation with urination. Family note patient has seemed altered and ?not herself? for the past 2 days. She has been more lethargic and difficult to arouse, sleeping most of the day. Patient has been nonweightbearing on left leg after noting to have a nondisplaced left tibial plateau fracture on 06/24 of uncertain date. Currently pt is somnolent but arousable, though falling back asleep during interview and exam. Does not answer questions fully and minimally participatory in interview and exam. According to nursing and ED clinician this is a noted changed from 1 hour prior when patient was much more alert and awake and answering questions fully and incomplete sentences. Since patient has become somnolent, patient's heart rate has been noted to be significantly bradycardic in the 35-40 range, though rebounding to 45-47 when aroused. Unclear if patient is symptomatic. Contacted Cardiology who thought this is likely patient's baseline when sleeping, and did not recommend intervention or transfer at this time. Review of records indicates patient was started on metoprolol 100 mg b.i.d. around 04/2023 for finding of atrial flutter. Underwent successful cardioversion on 06/11/2023 and started on amiodarone 200 mg daily. Metoprolol was reduced to 50 mg b.i.d.. In 11/27/2023 patient had Holter monitor for 3 days that showed sinus bradycardia with average heart rate of 54 with 91.8% of the time with HR less than 60. Metoprolol was then reduced to 25 mg b.i.d.. In the ED pt was bradycardic as low as 37 initially tachypneic at 24, and soft BP as low as 98/50. Labs were significant for microcytic anemia of 7.4/25.3 (around baseline), potassium 5.7, BUN 47, creatinine 2.20, and albumin 2.9. No leukocytosis hepatic function baseline. Serial troponins flat at 6.1 in 6.8. Ammonia 37. Lactic acid WNL 1.7. UA positive for UTI. CXR showed retrocardiac airspace disease in linear scar/subsegmental atelectasis in upper to mid left lung. CT?of chest pending. EKG demonstrated marked sinus bradycardia of 42 without significant ischemic changes. Pt was treated with IVF, insulin lispro 5 units, DuoNebs, and ceftriaxone. Pt will be admitted to the hospital for treatment and further evaluation of acute metabolic encephalopathy in the setting of UTI and possible pneumonia. Hospital Course Patient admitted to telemetry and placed on ceftriaxone. Urine ultimately grew out E coli sensitive to same. Patient complained of severe pain with urinary incontinence secondary to a vaginal candidiasis. She was given an IV dose of 200 of Diflucan and will go home and complete an oral course of same. She will be discharged home on Ceftin 250 twice daily. Her renal function remained at baseline. She will resume all home therapies. At this point in time she is medically acceptable for discharge Time Attestation Discharge Coordination Time (in mins): 35 Quality: Safe Use of Opioids Does Pt have an Active Cancer Diagnosis on the Problem List?: No Quality: Stroke Does the patient have a stroke diagnosis?: No Physical Exam Vital Signs: Vital Signs: Last Vital Signs Temp 97.7 F 08/07/24 08:00 Pulse 51 08/07/24 08:00 Resp 18 08/07/24 08:00 BP 127/57 L 08/07/24 08:00 Pulse Ox 97 08/07/24 08:00 O2 Del Method Room Air 08/07/24 08:00 O2 Flow Rate 3 08/07/24 00:00 Oxygen Flow Rate 3 08/02/24 14:44 BMI result Body Mass Index 39.4 Const: Other: Awake alert oriented x3 uncomfortable appearing Resp: Other: Clear to auscultation bilaterally no rales rhonchi or wheezes Cardio: Other: No S4; positive S1-S2; no S3 murmurs rubs or gallops GI: Other: Soft nontender nondistended normoactive bowel sounds Extrem: Other: No edema bilaterally DS: Data Data Completed and Pending Labs on day of discharge: Laboratory Results - last 24 hr 08/06/24 08/06/24 08/07/24 11:41 20:57 07:44 POC Glucose 186 H 184 H 143 H Preliminary micro results at discharge 08/02/24 17:05 Blood Culture - Preliminary Blood - Venous No growth after 48 hours. 08/02/24 16:51 Blood Culture - Preliminary Blood - Venous No growth after 48 hours. Discharge Plan Discharge Anticipated Discharge Date/Time: 08/07/24 11:28 Patient Disposition: Home Health Service Discharge Diagnosis: Acute urinary tract infection Referrals: Amanda Watkins MD [Primary Care Provider] - 1 Week Discharge Medications: New fluconazole 100 mg Tablet 100 mg PO DAILY Qty: 6 0RF cefuroxime axetil 250 mg tablet 250 mg PO BID 7 Days Qty: 14 0RF Continued metoprolol succinate 50 mg tablet extended release 24 hr 50 mg PO DAILY Qty: 90 5RF insulin glargine [Lantus U-100 Insulin] 100 unit/mL solution 65 unit subcut BEDTIME atorvastatin 80 mg tablet 80 mg PO BEDTIME dapagliflozin propanediol [Farxiga] 10 mg tablet 10 mg PO DAILY Eliquis 5 mg Tablet 5 mg PO BID Qty: 60 0RF omeprazole 40 mg capsule,delayed release(DR/EC) 40 mg PO DAILY@0630 triamcinolone acetonide 0.1 % cream 1 appl topical BID PRN (Reason: leg pain or swelling) duloxetine 20 mg capsule,delayed release(DR/EC) 20 mg PO DAILY trazodone 150 mg tablet 150 mg PO BEDTIME acetaminophen 500 mg Tablet 1,000 mg PO TID PRN (Reason: Pain) amiodarone 200 mg tablet 200 mg PO DAILY melatonin 5 mg tablet 5 mg PO BEDTIME PRN (Reason: sleep) aspirin 81 mg tablet,delayed release (DR/EC) 81 mg PO BEDTIME oxycodone-acetaminophen 5-325 mg tablet 1 tab PO Q6H PRN (Reason: pain) calcium carbonate 500 mg calcium (1,250 mg) tablet 500 mg PO BID gabapentin 100 mg capsule 100 mg PO TID clotrimazole 1 % cream 1 appl topical BID paroxetine HCl 40 mg tablet 40 mg PO DAILY nystatin 100,000 unit/gram Powder 1 appl topical BID Qty: 30 0RF Protocol: Apply to: Apply to: perenieum torsemide 20 mg tablet 20 mg PO DAILY Qty: 30 0RF amlodipine 5 mg Tablet 5 mg PO DAILY Qty: 30 0RF Protocol: Hold for SBP< HOLD for SBP < : 90 hydroxyzine HCl 25 mg tablet 25 mg PO Q8H PRN (Reason: Anxiety) levothyroxine 50 mcg tablet 50 mcg PO DAILY@0600 (DME) insulin syringe-needle U-100 1 mL 31 gauge x 5/16 syringe See Rx Instructions .ROUTE .MEDSUPPLY Qty: 10 Rx Instructions: As directed Discharge Orders: Discharge Order (Routine); Ordered 08/07/24 Ordered By: Bruce Torres Diet: Advance to usual diet Activity on Discharge: As tolerated Stand Alone Forms: Patient Portal Discharge page Print Language: Chinese Care Plan Goals: Resume all medications as taken prior to hospitalization Health Concerns: Follow up with PCP next available Plan of Treatment: Ceftin 250 mg twice daily x7 days has been added to your regimen along with Diflucan 100 mg daily complete both medicines as prescribed Assessment: See discharge summary
[2024-08-07 11:47] LABS: Glucose, Whole Blood 196 mg/dL (60-115)
[2024-08-07] MEDS: Calcium Oyster Shell Elemental 500 MG TABLET PO (11:57)
[2024-08-07] MEDS: Fluconazole 100 MG TABLET PO (11:57)
[2024-08-07] MEDS: Apixaban 5 MG TABLET PO (11:57)
[2024-08-07] MEDS: PARoxetine HCL 40 MG TABLET PO (11:57)
[2024-08-07] MEDS: Torsemide 20 MG TABLET PO (11:57)
[2024-08-07] MEDS: DULoxetine HCl 20 MG CAPSULE.DR PO (11:57)
[2024-08-07] MEDS: Gabapentin 100 MG CAPSULE PO (11:57)
[2024-08-07 12:00] VITALS: BP 108/57; PULSE 54; RESP 19; TEMP 36.3; O2SAT 97
[2024-08-07] MEDS: 0.9 % Sodium Chloride Flush 3 ML SYRINGE IVFLUSH (12:02)
[2024-08-07] MEDS: Insulin Lispro 100 UNIT/ML 3 ML VIAL SUBCUT (12:13)
--- NOTE | 2024-08-07 12:16 | MHC.CM.PN ---
Per MD, Patient is medically cleared for dc to home today with vna. A referral was made to [facility], who is aware of today's dc. CM spoke with HCP/Anatoliy @ [phone] and Daughter/Britni @ [phone] and addressed IMM with Britni, who confirmed that Alie (daughter who Patient lives with) will be home to receive Patient. Patient will return home to [address] [place] [address] [place] [facility] (WHO HAS [facility])AT 4pm.
--- NOTE | 2024-08-07 12:36 | W.MHC.F2F ---
Service Date Service Date: 08/07/24 Encounter Date of encounter: 08/07/24 Encounter: Acute hospitalization Reasons for Services Signs and symptoms assessed: Follow up with blood sugars and response to medical therapies Reason for detention: medication management, medication treatment and teach disease management Homebound: Leaving the home is medically contraindicated at this time without the asist of a device and/or another person due th the listed conditions above and below. Reason homebound: bedbound/chairbound and unable to drive Certification: Based on the above findings, I certify that this patient is confined to the home and needs intermittent detention care, physical therapy and/or speech therapy, or continues to need occupational therapy. The patient is under my care, and I have initiated the establishment of the plan of care. The patient will be followed by a physician who will periodically review the plan of care. Time Spent With Patient Time: Total time managing care of this patient today ____ minutes.
[2024-08-07] MEDS: Milk of Magnesia 30 ML ORAL.SUSP PO (13:14)
[2024-08-07] MEDS: Mineral OiL enema 133 ML ENEMA PR (15:12)
[2024-08-07 15:30] LABS: Glucose, Whole Blood 272 mg/dL (60-115)
[2024-08-07 16:00] VITALS: BP 179/77; PULSE 67; RESP 19; TEMP 37; O2SAT 98
== END 2024-08-07 16:58 | disposition home health service (06) | DRG 689 ==
LOC: HO.ED 16:07 → HO.EDOVER 17:20 → HO.IMC 18:05
PROVIDERS: Physician Assistant; Student in an Organized Health Care Education/Training Program; Admitting Provider Student in an Organized Health Care Education/Training Program; Emergency Provider Emergency Medicine; PCP Internal Medicine; Visit Provider Hospitalist
DX: N39.0 Urinary tract infection, site not specified (principal); G93.41 Metabolic encephalopathy; J18.9 Pneumonia, unspecified organism; I13.0 Hypertensive heart and chronic kidney disease with heart failure and stage 1 through stage 4 chronic kidney disease, or unspecified chronic kidney disease; J98.11 Atelectasis; I50.32 Chronic diastolic (congestive) heart failure; N18.30 Chronic kidney disease, stage 3 unspecified; E11.65 Type 2 diabetes mellitus with hyperglycemia; E11.22 Type 2 diabetes mellitus with diabetic chronic kidney disease; D50.9 Iron deficiency anemia, unspecified; I25.10 Atherosclerotic heart disease of native coronary artery without angina pectoris; E11.42 Type 2 diabetes mellitus with diabetic polyneuropathy; E66.09 Other obesity due to excess calories; Z68.39 Body mass index [BMI] 39.0-39.9, adult; B96.20 Unspecified Escherichia coli [E. coli] as the cause of diseases classified elsewhere; Z71.3 Dietary counseling and surveillance; B37.31 Acute candidiasis of vulva and vagina; E03.9 Hypothyroidism, unspecified; Z79.4 Long term (current) use of insulin; Z79.82 Long term (current) use of aspirin; Z79.01 Long term (current) use of anticoagulants; Z79.890 Hormone replacement therapy; Z79.899 Other long term (current) drug therapy
CPT/HCPCS: 36415; 71045; 71250; 80048; 80053; 80307; 81001; 82010; 82140; 82803; 82947; 83605; 83735; 83880; 84439; 84443; 84484; 85025; 85027; 85610; 86850; 86900; 86901; 86923; 87040; 87086; 87088; 87186; 93005; 94640; 99285; J0456; J0696; J1450; J2060; J2270; P9016

== ENCOUNTER → 2024-08-02 14:43 | Outpatient (BNV) | payer OTHER, SELFPAY | PROVIDERS: Admitting Provider Student in an Organized Health Care Education/Training Program; Emergency Provider Emergency Medicine; Visit Provider Internal Medicine Cardiovascular Disease | DX: R94.31 Abnormal electrocardiogram [ECG] [EKG] (principal) | CPT/HCPCS: 93010 ==

== ENCOUNTER → 2024-08-02 17:07 | Outpatient (BNV) | payer OTHER, SELFPAY | PROVIDERS: Admitting Provider Student in an Organized Health Care Education/Training Program; Emergency Provider Emergency Medicine; Visit Provider Hospitalist | DX: N39.0 Urinary tract infection, site not specified (principal); G93.41 Metabolic encephalopathy | CPT/HCPCS: 99223; 99232; 99239; G0180 ==

== ENCOUNTER 2024-08-04 10:12 | Outpatient (REF) | payer OTHER, SELFPAY | END 2024-08-04 10:13 | disposition home or self-care (01) | LOC: HO.HOSX 10:12 | PROVIDERS: Visit Provider Physician Assistant | DX: Z13.89 Encounter for screening for other disorder (principal) ==

== ENCOUNTER 2024-08-22 13:32 | Outpatient (REF) | payer OTHER, SELFPAY ==
[2024-08-22 14:11] LABS: Anion Gap 15 (12-20); Blood Urea Nitrogen 38 mg/dL (9-16); Calcium 8.4 mg/dL (8.4-10.2); Carbon Dioxide 31 mmol/L (22-29); Chloride 94 mmol/L (96-108); Estimated Glomerular Filt Rate 25; Glucose Random 555 mg/dL (60-115); Potassium 4.8 mmol/L (3.3-5.1); Sodium 135 mmol/L (135-145)
== END 2024-08-22 13:33 | disposition home or self-care (01) ==
LOC: HO.HVNA 13:32
PROVIDERS: Visit Provider Internal Medicine
DX: Z13.89 Encounter for screening for other disorder (principal)
CPT/HCPCS: 36415; 80048

== ENCOUNTER 2024-08-22 15:06 | Emergency (ER) | payer OTHER, SELFPAY ==
--- NOTE | ~2024-08-22 | XR_ITS ---
CLINICAL HISTORY: weakness 2 view chest x-ray Comparison: CR/SR - XR CHEST 1V - 08/02/24 15:11 EST Findings: No consolidation, pleural effusion or pneumothorax. Heart size is accentuated by lordotic projection and suboptimal inspiratory effort. No acute fracture. IMPRESSION: 1. Hypoventilation. 2. No lobar consolidation, large pleural effusion or overt CHF. This document has been electronically signed by: Danyelle Bills DO on 08/22/2024 17:51:42
[2024-08-22 15:28] VITALS: BP 129/57; BP 134/51; PULSE 55; PULSE 60; RESP 18; TEMP 36.7; O2SAT 95; O2SAT 97; BMI 35.5
--- NOTE | 2024-08-22 15:33 | ED.GENADULT ---
HPI - General Adult General Chief complaint: General Medical Stated complaint: LEG PAIN, HIGH BS NO INSULIN X3D PER EMS Time Seen by Provider: 08/22/24 15:32 Source: EMS Mode of arrival: EMS Limitations: no limitations History of Present Illness HPI narrative: 74-year-old female past medical history obesity, hypertension, diabetes, CKD, CHF, opiate dependence, coronary artery disease, cystocele, atrial arrhythmia, bradycardia, on anticoagulation, asthma, ANILA, depression. Who for some reason does not taking her insulin and noticed that her blood sugars have been high and is also complaining of bilateral leg pain her initial call was for vaginal pain and has since changed to burning when she pees and bilateral leg pain with an elevated blood sugar as she is not taking her insulin Related Data Home Medications ?Medication ?Instructions ?Recorded ?Confirmed insulin glargine 100 unit/mL 65 unit subcut BEDTIME 07/22/20 08/02/24 subcutaneous solution (Lantus U-100 Insulin) atorvastatin 80 mg tablet 80 mg PO BEDTIME 04/07/21 08/02/24 dapagliflozin propanediol 10 mg 10 mg PO DAILY 10/25/23 08/02/24 tablet (Farxiga) levothyroxine 50 mcg tablet 50 mcg PO DAILY@0600 11/18/23 08/02/24 duloxetine 20 mg capsule,delayed 20 mg PO DAILY 03/18/24 08/02/24 release omeprazole 40 mg capsule,delayed 40 mg PO DAILY@0630 03/18/24 08/02/24 release triamcinolone acetonide 0.1 % 1 appl topical BID PRN leg pain or 03/18/24 08/02/24 topical cream swelling insulin syringe-needle U-100 1 mL #10 ea 03/29/24 31 gauge x 12/22 trazodone 150 mg tablet 150 mg PO BEDTIME 04/06/24 08/02/24 acetaminophen 500 mg tablet 1,000 mg PO TID PRN Pain 04/19/24 08/02/24 amiodarone 200 mg tablet 200 mg PO DAILY 04/19/24 08/02/24 melatonin 5 mg tablet 5 mg PO BEDTIME PRN sleep 04/19/24 08/02/24 aspirin 81 mg tablet,delayed 81 mg PO BEDTIME 06/11/24 08/02/24 release calcium carbonate 500 mg PO BID 06/11/24 08/02/24 clotrimazole 1 % topical cream 1 appl topical BID 06/11/24 08/02/24 gabapentin 100 mg capsule 100 mg PO TID 06/11/24 08/02/24 oxycodone-acetaminophen 5 mg-325 1 tab PO Q6H PRN pain 06/11/24 08/02/24 mg tablet paroxetine HCl 40 mg tablet 40 mg PO DAILY 06/11/24 08/02/24 hydroxyzine HCl 25 mg tablet 25 mg PO Q8H PRN Anxiety 06/22/24 08/02/24 Previous Rx's ?Medication ?Instructions ?Recorded apixaban 5 mg tablet (Eliquis) 5 mg PO BID #60 tabs 11/03/23 metoprolol succinate 50 mg 50 mg PO DAILY #90 tabs 05/23/24 tablet,extended release 24 hr amlodipine 5 mg tablet 5 mg PO DAILY #30 tabs 06/20/24 nystatin 100,000 unit/gram topical 1 appl topical BID #30 grams 06/20/24 powder torsemide 20 mg tablet 20 mg PO DAILY #30 tabs 06/20/24 cefuroxime axetil 250 mg tablet 250 mg PO BID 7 days #14 tabs 08/07/24 fluconazole 100 mg tablet 100 mg PO DAILY #6 tabs 08/07/24 Allergies Allergy/AdvReac Type Severity Reaction Status Date / Time codeine [CODEINE] Allergy Intermediate HALLUCINATI Verified 08/22/24 15:29 ONS Review of Systems Review of Systems: Review of systems: General: Patient denies any fever chills recent illness or falls Musculoskeletal: Denies back pain or body aches or other injuries HEENT: denies headache, runny nose, ear pain Respiratory: denies shortness of breath, cough Cardiovascular: no chest pain or palpitations : dysuria, frequency itchiness Abdomen: no nausea vomiting denies abdominal pain Extremities: no swelling, no pain Skin: no diaphoresis Yes all other systems are reviewed and are negative [facility] Past Medical History Medical History Leg abrasion Abuse of non-prescription analgesics Type 2 diabetes mellitus with unspecified complications Other and unspecified hyperlipidemia Essential hypertension Atherosclerotic cardiovascular disease Urgency incontinence Osteoporosis Arthritis Asthma Hypertension Fibromyalgia Diabetes mellitus Surgical History History of hernia repair Social History Social History Household Members: None Household Members Other:: friend Housing: Apartment Do you presently have visiting nurse or other home services: Yes Unable to assess alcohol history related to: Refusing to respond Alcohol intake: never 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 Patient Tobacco Use Status: Never used Tobacco Smoked in Last 30 Days: No Use of substances other than those prescribed or required for medical reasons: No Advance Directives: Yes Advance Directives on File: Yes Advance Directives Date on File: 04/07/24 Do you have a plan to hurt others: No Plan service: No Sexual orientation: Straight/Heterosexual Physical Exam ED Vital Signs: Vital Signs - 24 hr 08/22/24 15:28 08/22/24 16:41 08/22/24 17:52 Temperature 98.1 F 98.0 F 98.1 F Pulse Rate 55 51 57 Respiratory Rate 18 16 16 Blood Pressure 134/51 L 152/93 H 154/58 H Pulse Oximetry 97 96 100 Oxygen Delivery Method Nasal Cannula Nasal Cannula Nasal Cannula Oxygen Flow Rate 2 2 08/22/24 18:38 Temperature 98.2 F Pulse Rate 57 Respiratory Rate 16 Blood Pressure 165/69 H Pulse Oximetry 100 Oxygen Delivery Method Nasal Cannula Oxygen Flow Rate 2 BMI result Body Mass Index 35.5 General: Well-appearing well-nourished in no signs of distress HEENT: Normocephalic atraumatic Neck: No signs of JVD, no masses no tenderness or lymphadenopathy Cardiovascular: Regular rate and rhythm Respiratory: Clear to auscultation bilaterally Abdomen: Soft nontender no masses Extremities: Normal pedal pulses no signs of edema Skin: Dry warm no rashes patient does have powder all over the vaginal area that is pink she does wear a diaper Back: No tenderness full ROM Course Course Course Narrative: Labs are coming back patient does hyperglycemia but no obvious DKA patient does not have a bladder infection explain her issues with her vagina with itching. I will repeat the blood sugar and see if the patient could possibly go home. Reevaluation(s) Reevaluation #1: Patient is feeling better anion gap has closed patient is still hyperglycemic but lactic acidosis also resolved I do feel comfortable discharging the patient home with close PCP follow up Time: 19:06 Medications Administered Discontinued Medications Generic Name Dose Route Start Last Admin Trade Name Elkin PRN Reason Stop Dose Admin Sodium Chloride 1,000 mls @ 999 mls/hr 08/22/24 15:45 08/22/24 18:31 Ns IV 08/22/24 16:45 Infused .Q1H1M JULIANNE Infusion Sodium Chloride 1,000 mls @ 999 mls/hr 08/22/24 17:30 08/22/24 18:31 Ns IV 08/22/24 18:30 Infused .Q1H1M JULIANNE Infusion Insulin Glargine 65 unit 08/22/24 15:42 08/22/24 16:08 Insulin Glargine,Hum.Rec.Anlog 100 Unit/Ml 10 Ml Vial SUBCUT 08/22/24 15:43 65 unit ONCE ONE Administration Insulin Human Lispro 8 unit 08/22/24 17:16 08/22/24 17:24 Insulin Lispro 100 Unit/Ml 3 Ml Vial SUBCUT 08/22/24 17:17 8 unit ONCE ONE Administration Medical Decision Making Medical Decision Making [facility] Narrative: I will get a straight cath urinalysis CBC BMP workup for DKA chest x-ray COVID flu RSV and reassess. Differential Diagnosis Differential Diagnoses: The differential diagnosis associated with the presentation includes Diabetic ketoacidosis UTI dehydration electrolyte abnormality Lab Data 08/22/24 15:57 08/22/24 18:33 Labs: Lab Results 08/22/24 08/22/24 08/22/24 Range/Units 15:34 15:57 16:03 WBC 4.3 L (4.8-10.8) X10*3/uL RBC 3.98 L (4.20-5.50) X10*6/uL Hgb 9.0 L (12.0-16.0) g/dl Hct 30.6 L (37.0-47.0) % MCV 76.9 L (80.0-98.0) fL MCH 22.6 L (27.0-33.0) pg MCHC 29.4 L (31.0-35.0) g/dl RDW 20.1 H (11.0-16.0) % Plt Count 183 D (160-400) X10*3/uL MPV 10.6 (9.4-12.3) fL Immature Gran % (Auto) 0.2 (0.0-0.4) % Neut % (Auto) 60.9 (45-73) % Lymph % (Auto) 23.8 (20-40) % [place] % (Auto) 8.5 (2-11) % Eos % (Auto) 5.2 H (0-4) % Baso % (Auto) 1.4 (0-2) % Lymph # (Auto) 1.0 L (1.2-4.9) X10*3/uL [place] # (Auto) 0.4 (0.1-1.2) X10*3/uL Eos # (Auto) 0.2 (0.0-0.4) X10*3/uL Baso # (Auto) 0.1 (0.0-0.2) X10*3/uL Abs Immat Gran (auto) 0.01 (0.00-0.03) X10*3/uL Absolute Neuts (auto) 2.6 (2.0-8.3) x10*3/uL Absolute Nucleated RBC 0.000 (0.0-0.012) X10*3/uL Nucleated RBC % (auto) 0.0 (0.0-0.2) /100WBC VBG pH 7.44 H (7.32-7.43) VBG pCO2 63 mmHg VBG pO2 31 mmHg VBG HCO3 44 H (22-26) mmol/L VBG O2 Saturation 35.0 % VBG Base Excess 17.1 mmol/L Sodium 137 (135-145) mmol/L Potassium 4.8 (3.3-5.1) mmol/L Chloride 94 L (96-108) mmol/L Carbon Dioxide 33 H (22-29) mmol/L Anion Gap 15 (12-20) BUN 39 H (9-16) mg/dL Creatinine 2.02 H (0.5-1.4) mg/dL Estim Creat Clear Calc 28.6 Estimated GFR 24 POC Glucose 490 H* (60-115) mg/dL Random Glucose 514 H* (60-115) mg/dL Lactic Acid 2.6 H* (0.5-2.0) mmol/L Lactic Acid F/U @ 2Hr (0.5-2.0) mmol/L Calcium 8.5 (8.4-10.2) mg/dL Total Bilirubin 0.3 (0.0-1.0) mg/dL Direct Bilirubin 0.1 (0.0-0.5) mg/dL AST 21 (5-31) U/L ALT 11 (0-31) U/L Alkaline Phosphatase 69 (39-117) U/L Total Protein 6.9 (6.5-8.0) g/dL Albumin 3.1 L (3.5-5.0) g/dL Lipase 25 (8-78) U/L Beta-Hydroxybutyrate 0.12 (0.02-0.27) mmol/L Urine Color Urine Appearance Urine pH (5.0-9.0) Ur Specific [place] (1.005-1.025) Urine Protein (Neg-Trace) mg/dL Urine Glucose (UA) (Negative) mg/dL Urine Ketones (Negative) mg/dL Urine Blood (Negative) Urine Nitrite (Negative) Ur Leukocyte Esterase (Negative) Urine RBC (0-2) /HPF Urine WBC (0-5) /HPF Ur Squamous Epith Cells (0-2) /HPF Urine Bacteria (None Seen) Hyaline Casts (0-2) /LPF Influenza Type A (PCR) NEGATIVE (Negative) Influenza Type B (PCR) NEGATIVE (Negative) RSV RNA Qual (PCR) NEGATIVE (Negative) SARS-CoV-2 RNA (RT-PCR) NEGATIVE (Negative) 08/22/24 08/22/24 08/22/24 Range/Units 16:05 17:09 18:33 WBC (4.8-10.8) X10*3/uL RBC (4.20-5.50) X10*6/uL Hgb (12.0-16.0) g/dl Hct (37.0-47.0) % MCV (80.0-98.0) fL MCH (27.0-33.0) pg MCHC (31.0-35.0) g/dl RDW (11.0-16.0) % Plt Count (160-400) X10*3/uL MPV (9.4-12.3) fL Immature Gran % (Auto) (0.0-0.4) % Neut % (Auto) (45-73) % Lymph % (Auto) (20-40) % [place] % (Auto) (2-11) % Eos % (Auto) (0-4) % Baso % (Auto) (0-2) % Lymph # (Auto) (1.2-4.9) X10*3/uL [place] # (Auto) (0.1-1.2) X10*3/uL Eos # (Auto) (0.0-0.4) X10*3/uL Baso # (Auto) (0.0-0.2) X10*3/uL Abs Immat Gran (auto) (0.00-0.03) X10*3/uL Absolute Neuts (auto) (2.0-8.3) x10*3/uL Absolute Nucleated RBC (0.0-0.012) X10*3/uL Nucleated RBC % (auto) (0.0-0.2) /100WBC VBG pH (7.32-7.43) VBG pCO2 mmHg VBG pO2 mmHg VBG HCO3 (22-26) mmol/L VBG O2 Saturation % VBG Base Excess mmol/L Sodium 140 (135-145) mmol/L Potassium 4.8 (3.3-5.1) mmol/L Chloride 102 (96-108) mmol/L Carbon Dioxide 33 H (22-29) mmol/L Anion Gap 10 L (12-20) BUN 35 H (9-16) mg/dL Creatinine 1.78 H (0.5-1.4) mg/dL Estim Creat Clear Calc 32.5 Estimated GFR 28 POC Glucose 424 H* (60-115) mg/dL Random Glucose 394 H* (60-115) mg/dL Lactic Acid (0.5-2.0) mmol/L Lactic Acid F/U @ 2Hr 1.9 (0.5-2.0) mmol/L Calcium 7.9 L D (8.4-10.2) mg/dL Total Bilirubin (0.0-1.0) mg/dL Direct Bilirubin (0.0-0.5) mg/dL AST (5-31) U/L ALT (0-31) U/L Alkaline Phosphatase (39-117) U/L Total Protein (6.5-8.0) g/dL Albumin (3.5-5.0) g/dL Lipase (8-78) U/L Beta-Hydroxybutyrate (0.02-0.27) mmol/L Urine Color Yellow Urine Appearance Clear Urine pH 7.0 (5.0-9.0) Ur Specific [place] 1.015 (1.005-1.025) Urine Protein Negative (Neg-Trace) mg/dL Urine Glucose (UA) >=1000 H (Negative) mg/dL Urine Ketones Negative (Negative) mg/dL Urine Blood Negative (Negative) Urine Nitrite Negative (Negative) Ur Leukocyte Esterase Negative (Negative) Urine RBC 0-2 (0-2) /HPF Urine WBC 0-5 (0-5) /HPF Ur Squamous Epith Cells 0-2 (0-2) /HPF Urine Bacteria None Seen (None Seen) Hyaline Casts 0-2 (0-2) /LPF Influenza Type A (PCR) (Negative) Influenza Type B (PCR) (Negative) RSV RNA Qual (PCR) (Negative) SARS-CoV-2 RNA (RT-PCR) (Negative) 08/22/24 Range/Units 18:45 WBC (4.8-10.8) X10*3/uL RBC (4.20-5.50) X10*6/uL Hgb (12.0-16.0) g/dl Hct (37.0-47.0) % MCV (80.0-98.0) fL MCH (27.0-33.0) pg MCHC (31.0-35.0) g/dl RDW (11.0-16.0) % Plt Count (160-400) X10*3/uL MPV (9.4-12.3) fL Immature Gran % (Auto) (0.0-0.4) % Neut % (Auto) (45-73) % Lymph % (Auto) (20-40) % [place] % (Auto) (2-11) % Eos % (Auto) (0-4) % Baso % (Auto) (0-2) % Lymph # (Auto) (1.2-4.9) X10*3/uL [place] # (Auto) (0.1-1.2) X10*3/uL Eos # (Auto) (0.0-0.4) X10*3/uL Baso # (Auto) (0.0-0.2) X10*3/uL Abs Immat Gran (auto) (0.00-0.03) X10*3/uL Absolute Neuts (auto) (2.0-8.3) x10*3/uL Absolute Nucleated RBC (0.0-0.012) X10*3/uL Nucleated RBC % (auto) (0.0-0.2) /100WBC VBG pH (7.32-7.43) VBG pCO2 mmHg VBG pO2 mmHg VBG HCO3 (22-26) mmol/L VBG O2 Saturation % VBG Base Excess mmol/L Sodium (135-145) mmol/L Potassium (3.3-5.1) mmol/L Chloride (96-108) mmol/L Carbon Dioxide (22-29) mmol/L Anion Gap (12-20) BUN (9-16) mg/dL Creatinine (0.5-1.4) mg/dL Estim Creat Clear Calc Estimated GFR POC Glucose 339 H (60-115) mg/dL Random Glucose (60-115) mg/dL Lactic Acid (0.5-2.0) mmol/L Lactic Acid F/U @ 2Hr (0.5-2.0) mmol/L Calcium (8.4-10.2) mg/dL Total Bilirubin (0.0-1.0) mg/dL Direct Bilirubin (0.0-0.5) mg/dL AST (5-31) U/L ALT (0-31) U/L Alkaline Phosphatase (39-117) U/L Total Protein (6.5-8.0) g/dL Albumin (3.5-5.0) g/dL Lipase (8-78) U/L Beta-Hydroxybutyrate (0.02-0.27) mmol/L Urine Color Urine Appearance Urine pH (5.0-9.0) Ur Specific [place] (1.005-1.025) Urine Protein (Neg-Trace) mg/dL Urine Glucose (UA) (Negative) mg/dL Urine Ketones (Negative) mg/dL Urine Blood (Negative) Urine Nitrite (Negative) Ur Leukocyte Esterase (Negative) Urine RBC (0-2) /HPF Urine WBC (0-5) /HPF Ur Squamous Epith Cells (0-2) /HPF Urine Bacteria (None Seen) Hyaline Casts (0-2) /LPF Influenza Type A (PCR) (Negative) Influenza Type B (PCR) (Negative) RSV RNA Qual (PCR) (Negative) SARS-CoV-2 RNA (RT-PCR) (Negative) Discharge Plan Discharge Clinical Impression: Urinary frequency, Type 2 diabetes mellitus with unspecified complications, Acute hyperglycemia, Acute dehydration Patient Disposition: Home, Self-Care Instructions: Dehydration (ED), Diabetic Hyperglycemia (ED), Urinary Urgency and Frequency (DC) Additional Instructions: You were seen today for urinary frequency urgency and burning. You also found to have an elevated blood sugar. You initially showed signs of dehydration which corrected with fluids and insulin. Please call follow up with your doctor if you have any other concerns please return to the ER. Prescriptions: No Action metoprolol succinate 50 mg tablet extended release 24 hr 50 mg PO DAILY Qty: 90 5RF insulin glargine [Lantus U-100 Insulin] 100 unit/mL solution 65 unit subcut BEDTIME atorvastatin 80 mg tablet 80 mg PO BEDTIME dapagliflozin propanediol [Farxiga] 10 mg tablet 10 mg PO DAILY Eliquis 5 mg Tablet 5 mg PO BID Qty: 60 0RF omeprazole 40 mg capsule,delayed release(DR/EC) 40 mg PO DAILY@0630 triamcinolone acetonide 0.1 % cream 1 appl topical BID PRN (Reason: leg pain or swelling) duloxetine 20 mg capsule,delayed release(DR/EC) 20 mg PO DAILY trazodone 150 mg tablet 150 mg PO BEDTIME acetaminophen 500 mg Tablet 1,000 mg PO TID PRN (Reason: Pain) amiodarone 200 mg tablet 200 mg PO DAILY melatonin 5 mg tablet 5 mg PO BEDTIME PRN (Reason: sleep) fluconazole 100 mg Tablet 100 mg PO DAILY Qty: 6 0RF cefuroxime axetil 250 mg tablet 250 mg PO BID 7 Days Qty: 14 0RF aspirin 81 mg tablet,delayed release (DR/EC) 81 mg PO BEDTIME oxycodone-acetaminophen 5-325 mg tablet 1 tab PO Q6H PRN (Reason: pain) calcium carbonate 500 mg calcium (1,250 mg) tablet 500 mg PO BID gabapentin 100 mg capsule 100 mg PO TID clotrimazole 1 % cream 1 appl topical BID paroxetine HCl 40 mg tablet 40 mg PO DAILY nystatin 100,000 unit/gram Powder 1 appl topical BID Qty: 30 0RF Protocol: Apply to: Apply to: hardikm torsemide 20 mg tablet 20 mg PO DAILY Qty: 30 0RF amlodipine 5 mg Tablet 5 mg PO DAILY Qty: 30 0RF Protocol: Hold for SBP< HOLD for SBP < : 90 hydroxyzine HCl 25 mg tablet 25 mg PO Q8H PRN (Reason: Anxiety) levothyroxine 50 mcg tablet 50 mcg PO DAILY@0600 (DME) insulin syringe-needle U-100 1 mL 31 gauge x 5/16 syringe See Rx Instructions .ROUTE .MEDSUPPLY Qty: 10 Rx Instructions: As directed Print Language: Hungarian
[2024-08-22 15:37] LABS: Glucose, Whole Blood 490 mg/dL (60-115)
[2024-08-22 16:05] LABS: Basophils Absolute Auto 0.1 X10*3/uL (0.0-0.2); Basophils Percent Auto 1.4 % (0-2); Eosinophils Absolute Auto 0.2 X10*3/uL (0.0-0.4); Eosinophils Percent Auto 5.2 % (0-4); Hematocrit 30.6 % (37.0-47.0); Imm Gran Abs Auto 0.01 X10*3/uL (0.00-0.03); Imm Gran Pct Auto 0.2 % (0.0-0.4); Lymphocytes Percent Auto 23.8 % (20-40); Mean Corpuscular HGB Conc 29.4 g/dl (31.0-35.0); Mean Corpuscular Hemoglobin 22.6 pg (27.0-33.0); Mean Corpuscular Volume 76.9 fL (80.0-98.0); Mean Platelet Volume 10.6 fL (9.4-12.3); Monocytes Absolute Auto 0.4 X10*3/uL (0.1-1.2); Monocytes Percent Auto 8.5 % (2-11); Neutrophils Absolute Auto 2.6 x10*3/uL (2.0-8.3); Neutrophils Percent Auto 60.9 % (45-73); Platelet Count 183 X10*3/uL (160-400); Red Blood Count 3.98 X10*6/uL (4.20-5.50); Red Cell Distribution Width 20.1 % (11.0-16.0); White Blood Count 4.3 X10*3/uL (4.8-10.8)
[2024-08-22] MEDS: 0.9 % Sodium Chloride 1,000 ML 999 ML IV ×2 (16:05→17:24)
[2024-08-22 16:06] LABS: MANUAL DIFF FLAG NO
[2024-08-22 16:07] LABS: Venous Blood Gas Refer to POC result
[2024-08-22 16:08] LABS: VBG Base Excess 17.1 mmol/L; VBG HCO3 44 mmol/L (22-26); VBG pCO2 63 mmHg; VBG pH 7.44 (7.32-7.43); VBG pO2 31 mmHg
[2024-08-22] MEDS: Insulin Glargine,Hum.rec.anlog 100 UNIT/ML 10 ML VIAL 65 UNIT SUBCUT (16:08)
[2024-08-22 16:19] LABS: Appearance Urine Clear; Color Urine Yellow; Glucose Urine UA >=1000 mg/dL (Negative); Leukocyte Esterase Urine Negative (Negative); Nitrite Urine Negative (Negative); Specific Gravity - Urine 1.015 (1.005-1.025); UMIC TRIGGER UACC YES; Urine Blood Negative (Negative); Urine Ketones Negative (Negative); Urine Protein Negative (Neg-Trace)
[2024-08-22 16:21] LABS: Beta-Hydroxybutyrate 0.12 mmol/L (0.02-0.27)
--- NOTE | 2024-08-22 16:21 | PC.NURSE ---
telugu speaking - clinical applications manager utilized. pt presents to the ED c/o lower abd pain w/ urinary urgency/frequency/dysuria. pt also reporting associated bilateral leg pain. incidentally found to be hyperglycemic upon EMS arrival - reading high. no insulin x 3 days d/t son not picking up medication, stating he forgot. upon ED arrival - a&ox4. vss and up to date. nsr on the cardiac nurse practitioner. POC obtained displaying 490mg/dL. 20gIV placed in the left hand - labs obtained/sent to lab. 2nd set of cultures as well as other labs obtained by tech. IVF/insulin administered per provider order. effectiveness pending. bladder scan obtained prior to straight catheterization. bladder scan obtained displaying 350ml. straight catheterization performed - 375ml of clear, pale yellow, foul smelling urine noted immediately post output. UA obtained/sent to lab. pt on 2L via NC (baseline) w/o difficulty. no sob/wob noted. respirations even/unlabored. pt turned/repositioned to comfort. pending chest xray to be completed. plan of care ongoing. call jacome placed within reach.
[2024-08-22 16:25] LABS: Lactic Acid 2.6 mmol/L (0.5-2.0)
[2024-08-22 16:26] LABS: Alanine Aminotransferase 11 U/L (0-31); Albumin Level 3.1 g/dL (3.5-5.0); Anion Gap 15 (12-20); Aspartate Amino Transferase 21 U/L (5-31); Bilirubin Direct 0.1 mg/dL (0.0-0.5); Bilirubin Total 0.3 mg/dL (0.0-1.0); Blood Urea Nitrogen 39 mg/dL (9-16); Calcium 8.5 mg/dL (8.4-10.2); Carbon Dioxide 33 mmol/L (22-29); Chloride 94 mmol/L (96-108); Creatinine Clr Calc Pharmacy 28.6; Estimated Glomerular Filt Rate 24; Glucose Random 514 mg/dL (60-115); Lipase 25 U/L (8-78); Potassium 4.8 mmol/L (3.3-5.1); Sodium 137 mmol/L (135-145); Total Protein 6.9 g/dL (6.5-8.0)
[2024-08-22 16:41] VITALS: BP 152/93; PULSE 51; RESP 16; TEMP 36.7; O2SAT 96
--- NOTE | 2024-08-22 16:46 | PC.NURSE ---
pt to xray at this time.
[2024-08-22 16:47] LABS: Bacteria Urine None Seen (None Seen); Hyaline Casts Urine 0-2 /LPF (0-2); RBC Urine 0-2 /HPF (0-2); Squamous Epithelial Cell Urine 0-2 /HPF (0-2); WBC Urine 0-5 /HPF (0-5)
[2024-08-22 16:55] LABS: Influenza A PCR NEGATIVE (Negative); Influenza B PCR NEGATIVE (Negative); Resp Syncy Virus RNA Qual PCR NEGATIVE (Negative); SARS COV2 PCR INHOUSE NEGATIVE (Negative)
[2024-08-22 17:08] LABS: Alkaline Phosphatase 69 U/L (39-117)
[2024-08-22 17:12] LABS: Glucose, Whole Blood 424 mg/dL (60-115)
[2024-08-22] MEDS: Insulin Lispro 100 UNIT/ML 3 ML VIAL 8 UNIT SUBCUT (17:24)
--- NOTE | 2024-08-22 17:24 | PC.NURSE ---
pt remains hyperglycemic despite previous interventions. additional 8u insulin administered per provider order. another liter of IVF infusing at this time. will repeat labs s/p IVF infusions.
[2024-08-22 17:52] VITALS: BP 154/58; PULSE 57; RESP 16; TEMP 36.7; O2SAT 100
[2024-08-22 18:02] LABS: Reflex Lactate? Lactic Acid Added
--- NOTE | 2024-08-22 18:30 | PC.NURSE ---
IVF completely infused. repeat labs obtained/sent to lab.
[2024-08-22 18:38] VITALS: BP 165/69; PULSE 57; RESP 16; TEMP 36.8; O2SAT 100
[2024-08-22 18:48] LABS: Glucose, Whole Blood 339 mg/dL (60-115)
[2024-08-22 18:55] LABS: ~Lactic Acid-LAB USE ONLY 1.9 mmol/L (0.5-2.0)
[2024-08-22 18:59] LABS: Anion Gap 10 (12-20); Blood Urea Nitrogen 35 mg/dL (9-16); Calcium 7.9 mg/dL (8.4-10.2); Carbon Dioxide 33 mmol/L (22-29); Chloride 102 mmol/L (96-108); Creatinine Clr Calc Pharmacy 32.5; Estimated Glomerular Filt Rate 28; Glucose Random 394 mg/dL (60-115); Potassium 4.8 mmol/L (3.3-5.1); Sodium 140 mmol/L (135-145)
[2024-08-22] MEDS: Ibuprofen 400 MG TABLET PO (19:58)
[2024-08-22] MEDS: Acetaminophen 325 MG TABLET 650 MG PO (20:01)
[2024-08-22 22:45] VITALS: BP 110/80; PULSE 54; RESP 18; TEMP 36.9; O2SAT 99
== END 2024-08-22 22:46 | disposition home or self-care (01) ==
PROVIDERS: Emergency Provider Student in an Organized Health Care Education/Training Program; PCP Internal Medicine
DX: N39.0 Urinary tract infection, site not specified (principal); E11.65 Type 2 diabetes mellitus with hyperglycemia; E86.0 Dehydration; M79.605 Pain in left leg; M79.604 Pain in right leg; Z03.818 Encounter for observation for suspected exposure to other biological agents ruled out; I10 Essential (primary) hypertension; E78.5 Hyperlipidemia, unspecified; J45.909 Unspecified asthma, uncomplicated; F11.20 Opioid dependence, uncomplicated; Z79.01 Long term (current) use of anticoagulants; Z79.4 Long term (current) use of insulin; Z79.02 Long term (current) use of antithrombotics/antiplatelets; Z79.82 Long term (current) use of aspirin; Z79.899 Other long term (current) drug therapy
CPT/HCPCS: 0241U; 36415; 71046; 80048; 80076; 81001; 82010; 82803; 82947; 83605; 83690; 85025; 87040; 96360; 96361; 99284; 99285

== ENCOUNTER → 2024-08-22 15:39 | Outpatient (BNV) | payer OTHER, SELFPAY | PROVIDERS: Emergency Provider Student in an Organized Health Care Education/Training Program; PCP Internal Medicine; Visit Provider Radiology Diagnostic Radiology | DX: R06.89 Other abnormalities of breathing (principal) | CPT/HCPCS: 71046 ==

== ENCOUNTER 2024-09-01 14:02 | Outpatient (REF) | payer OTHER, SELFPAY ==
--- OUTSIDE RECORDS SUMMARY | 2024-09-01 15:45 | XMS_ITS | Encounter Summary ---
Author Organization [employer] Address [address] [place] [address] Care Team Providers Care Electronic Prepress Operator Name Role Phone Amanda Watkins MD Primary Care Provide r Hiro Ram Unavailable Unavailable Encounter Details Date Type Department Care Team ([facility] st Contact Info) Description 08/14/2024 Telephone [facility] MEDICINE [address] [place] [address] Lacey Quesada MD [address] [place] [address] Social History Tobacco Use Types Packs/Day Years Used Date Smoking Tobacco: Never Passive Smoke Exposure: Never Smokeless Tobacco: Never Depression Answer Date Recorded Patient Health Questionnaire-9 Score 10 01/13/2024 Patient Health Questionnaire-9 Score 10 01/13/2024 Last PHQ-9: Questionnaire Data Not on file 0 01/13/2024 Housing Stability Answer Date Recorded What is your housing situation today? I have ramiro simmons 05/24/[address] you li ve. Do you have problems with any of the following? None of the above 05/24/2023 Food Insecurity Answer Date Recorded Within the past 12 months, y ou worried that your food would run out before you got money to buy more: Never True 05/24/2023 Within the past 12 months,th e food you bought just didn't last and you didn't have enough money to get more: Never True Transportation Answer Date Recorded In the past 12 months, has l ack of transportation kept you from medical appts, meetings, work or from getting things needed for daily living? Yes, it has kept me from non-medical meetings, work, or getting things that I need 10/15/2023 Utilities Answer Date Recorded In the past 12 months, has t he electric, gas, oil or water company threatened to shut off services in your home? No 05/24/2023 Depression Answer Date Recorded Patient Health Questionnaire-2 Score 2 01/13/2024 Comments Unknown Sex and Gender Information Value Date Recorded Sex Assigned at Female 06/08/2022 10:18 AM EDT Legal Sex Female 10:18 AM EDT Gender Identity Female 06/08/2022 10:18 AM EDT Sexual Orientation Straight 06/08/2022 10 :18 AM EDT documented as of this encounter Miscellaneous Notes * Telephone Encounter - Lacey Quesada MD - 08/14/2024 8:51 AM EST TC instructional material director from [employer] at [facility]. Patient has been admitted and they need an updated med list. Current medication list sent via encrypted email to [facility]. documented in this encounter Plan of Treatment Upcoming Encounters Date Type Department Care Team (Late st Contact Info) Description 09/06/2024 10:00 AM EST Clinical Support [facility] MEDICINE [address] [place] [id number] 09/07/2024 2:00 PM EST Telemedicine [facility] MEDICINE [address] [place] [phone] Kayley Alanis RN 09/14/2024 11:00 AM EST Telemedicine [facility] MEDICINE [address] [place] [address] 10/24/2024 2:00 PM EDT Office Visit [facility] OPTOMETRY [address] [place] [address] Elisa Cummings, ALOK [address] [place] [address] documented as of this encounter Visit Diagnoses Not on filedocumented in this encounter Additional Health Concerns Assessment Noted Time PHQ-9 Depression Total Score: 10 024 3:23 PM EDT documented as of this encounter Care Teams Electronic Prepress Operator Relationship Specialty Start Date End Date Amanda Watkins MD [address] [place] [address] PCP - General Family Medicine 04/07/19 Hiro Ram FNP [address] [place] [address] Nurse Practitioner Family Medicine 07/06/23 [facility] 07/03/22 08/16/24 Ja [facility] 08/10/24 documented as of this encounter
--- OUTSIDE RECORDS SUMMARY | 2024-09-01 15:45 | XMS_ITS | Encounter Summary ---
Author Organization [employer] Address [address] [place] [address] Care Team Providers Care Russian Language Professor Name Role Phone Amanda Watkins MD Primary Care Provide r Hiro Ram Unavailable Unavailable Reason for Visit * Reason Comments Med Refill Encounter Details Date Type Department Care Team (Late st Contact Info) Description 02/11/2024 Refill [facility] [address] [place] [address] Amanda Watkins MD [address] [place] [id number] Type 2 diabetes mellitus with other specified complication, unspecified whether termite control servicer insulin use ([facility]) Social History Tobacco Use Types Packs/Day Years [...] AM EDT documented as of this encounter Plan of Treatment Upcoming Encounters Date Type Department Care Team (Late st Contact Info) Description 09/06/2024 10:00 AM EST Clinical Support [facility] [address] [place] [phone] 09/07/2024 2:00 PM EST Telemedicine [facility] [address] [place] [phone] Kayley Alanis RN 09/14/2024 11:00 AM EST Telemedicine [facility] [address] [place] [phone] 10/24/2024 2:00 PM EDT Office Visit [facility] [address] [place] [address] Elisa Cummings, ALOK [address] [place] [address] documented as of this encounter Visit Diagnoses Diagnosis Type 2 diabetes mellitus with other specified complication, unspecified whether termite control servicer insulin use ([facility]) documented in this encounter Additional Health Concerns Assessment Noted Time PHQ-9 Depression Total Score: 10 024 3:23 PM EDT documented as of this encounter Care Teams Russian Language Professor Relationship Specialty Start Date End Date Amanda Watkins MD [address] [place] [address] PCP - General Family Medicine 04/07/19 Hiro Ram FNP [address] [place] [address] Nurse Practitioner Family Medicine 07/06/23 [facility] 07/03/22 08/16/24 Ja [facility] 08/10/24 documented as of this encounter
--- OUTSIDE RECORDS SUMMARY | 2024-09-01 15:45 | XMS_ITS | Data Portability ---
Author Organization [facility] [employer] [facility], Main Office Address [address] [place] [address] Care Team Providers Care Senior Accounting Specialist Name Role Phone EUGENIA FLOWER - 2ND FLOOR OTHER Assessment Encounter Date Assessment Date Assessment LastModified by Organization Details LastModified Time 04/08/2024 04/08/202404/05 na 139 k 5 cre 1.27 wbc 6.8 hgn 9.7 hct 31.1 [email or web address] Not available 04/08/2024 12:35:37 04/11/2024 04/11/202404/05 na 139 k 5 cre 1.27 wbc 6.8 hgn 9.7 hct 31.1 [email or web address] Not available 04/11/2024 21:51:17 04/18/2024 04/18/202404/05 na 139 k 5 cre 1.27 wbc 6.8 hgn 9.7 hct 31.1 [email or web address] Not available 04/18/2024 13:49:59 04/19/2024 04/19/202404/05 na 139 k 5 cre 1.27 wbc 6.8 hgn 9.7 hct 31.1 this 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 Lab None record ed. Referral None record ed. Procedures None record ed. Surgeries None record ed. Imaging None record ed. Medication Orders None record ed. Patient TargetsNo targets recorded. Patient InstructionsNo instructions recorded. Reason for Referral None Reported. Problems Name Problem SNOMED Code Status Onset Date Resolution Date Notes Provider Name and Address Organization Details Recorded Time Depressive disorder 50023372 Active 2023 HOLDEN LAURENT [address], [address], [place], [address], [facility] 4 12:24:02 Atrial fibrillation 73963495 Active 2023 HOLDEN LAURENT [address], [address], [place], [address], [facility] 4 12:24:20 Obstructive sleep apnea syndrome 78355478 Active 2023 HOLDEN LAURENT [address], [address], [place], [address], [facility] 4 12:24:31 Asthma 177436588 Active 2023 HOLDEN LAURENT [address], [address], [place], [address], [facility] 4 12:24:36 Hypertensive disorder 04249987 Active 2023 HOLDEN LAURENT [address], [address], [place], [address], [facility] 4 12:24:41 Hyperlipidemia 19255681 Active 2023 HOLDEN LAURENT [address], [address], [place], [address], [facility] 4 12:24:47 Retention of urine 282682096 Active 2023 HOLDEN LAURENT [address], [address], [place], [address], [facility] 4 12:24:53 Opioid dependence 37751666 Active 2023 HOLDEN LAURENT [address], [address], [place], [address], [facility] 4 12:25:08 Diabetes mellitus 35306877 Active 2023 HOLDEN LAURENT [address], [address], [place], [address], [facility] 4 12:25:14 Congestive heart failure 41157317 Active 2023 HOLDEN LAURENT [address], [address], [place], [address], [facility] 4 12:25:21 Gastroesophage al reflux disease 229526975 Active 2023 REBECA HOLDEN SOTOMAYOR [address], [address], [place], [address], [facility] 4 12:25:30 Hypothyroidism 14618245 Active 2023 REBECAHOLDEN FELTON [address], [address], [place], [address], [facility] 4 12:25:37 Cellulitis 380581558 Active 2023 REBECAHOLDEN FELTON [address], [place], [address], [facility] 4 12:26:22 Arterial insufficiency 879638814 Active 2023 HOLDEN LAURENT [address], [place], [address], [facility] 4 12:26:37 Problem Notes None recorded. Medical Equipment None Reported. Allergies Allergen ID Allergen Name Allergen Category Reaction Reaction Severity Criticality Documentation Date Start Date Code Code System Note Provider Name and Address Organization Details Recorded Time [id number] codeine medicatio n Not available Not available Not available 04/08/2024 2670 RxNorm Not Available Not Available Not Available Medications Name Sig Start Date Stop Date Status Note LastModified by Organization Details LastModified Time oxycodone 5 mg tablet Take 1 tablet every 6 hours by oral route as needed. 024 active Not Available Not Available Not Avai lable Vitals Date Recorded Body height Body mass index (BMI) Body weight Heart rate Respiratory rate Body temperature Oxygen saturation Oxygen saturation in Arterial blood by Pulse oximetry Systolic blood pressure Diastolic blood pressure Provider Name and Address Organization Details Last Updated DateTime 4 152.4 cm 48.5 kg/m2 662611. 27 g 53 /min 18 /min 98.6 [degF] 98 % 98 % 149 mm[Hg] 77 mm[Hg] Genny Aguilar MD [address], [address], [place], [address], [facility] 4 21:34:16 Date Recorded Body height Heart rate Respiratory rate Body temperature Oxygen saturation Oxygen saturation in Arterial blood by Pulse oximetry Systolic blood pressure Diastolic blood pressure Provider Name and Address Organization Details Last Updated DateTime 4 152.4 cm 54 /min 18 /min 98.1 [degF] 96 % 96 % 175 mm[Hg] 90 mm[Hg] IBETH PRICE NP [address], [address], [place], [address], [facility] 4 13:49:23 Date Recorded Body height Body mass index (BMI) Body weight Heart rate Respiratory rate Body temperature Oxygen saturation Oxygen saturation in Arterial blood by Pulse oximetry Systolic blood pressure Diastolic blood pressure Provider Name and Address Organization Details Last Updated DateTime 4 152.4 cm 48.4 kg/m2 952869. 91 g 68 /min 18 /min 98.1 [degF] 96 % 96 % 132 mm[Hg] 72 mm[Hg] Raiza Madsen NP [address], [address], [place], [address], [facility] 4 08:19:33 Social History Question Answer Notes LastModified by Organizat ion Details LastModified Time Tobacco Smoking Status Never Smoker Genny Aguilar MD [address], [facility] [[email or web address] [address], [place], [address], [facility] 04/11/2024 21:50:08 Do You Have An Advance Directive? Yes Information not available 04/11/2024 What Is Your Level Of Alcohol Consumption? None Information not available 04/11/2024 What Is Your Code Status? Full Code Information not available 04/11/2024 Where Do You Live? Apartment With Sister, Elevator Access. Information not available 04/11/2024 Legal Guardian? No Informati on not available 04/11/2024 Do You Have A Medical Power Of Supervisor Statement Clerks? Yes Information not available 04/11/2024 What Was The Date Of Your Most Recent Tobacco Screening? 04/11/2024 Information not available 04/11/2024 Do You Have An Out Of Hospital DNR? No Information not available 04/11/2024 Do You Use Any Illicit Or Recreational Drugs? No Information not available 04/11/2024 Has Tobacco Cessation Counseling Been Provided? No N/a As Pt Is Non-smoker Information not available 04/11/2024 Do You Or Have You Ever Used Any Other Forms Of Tobacco Or Nicotine? No Information not available 04/11/2024 Sex: Unknown Functional Status None recorded. Mental Status None recorded. Family History Nothing Reported Notes:n/c Medical History No medical history recorded. Gynecological HistoryNo gynecological history recorded. Obstetrics History GPAL:G 0 P 0 0 0 0 Past Encounters Encounter ID Performer Location Encounter Start Date Encounter Closed Date Diagnosis/Indication Diagnosis SNOMED-CT Code Diagnosis ICD10 Code Diagnosis Note [id number] HOLDEN LAURENT [address] [address] 04/08/2024 12:12:39 04/13/2024 15:07:34 Cellulitis 710260829 L03.90 completed antbx for LE cellulitis in ED = did not feel it was recurrence of an acute infectionh /o chronic lymphedema -monitor ss of infection- bacitracin topical to BL legs daily-oxyc odone 5 mg q6h prn for pain Arterial insufficiency 960919326 I77.1 -f/up with vascular per recs needs to be arranged-s ee above Retention of urine 83298 4002 R33.9 unable to urinate since coming from [facility] to facility-w ill order PVR, SC for PVR >400 cc Atrial fibrillation 4943 6004 I48.91 carrying dx-amiodar one 200 mg daily-eliq uis 5 mg bid-monito r HR and bleeding Hypertensive disorder 38 388190 I10 carrying dx-amlodip ine 10 mg daily-leonardo tor BP Depressive disorder 3548 9007 F32.A carrying dx-duloxet ine 20 mg daily-paxi l 40 mg daily-leonardo tor mood and affect-psy ch eval prn Congestive heart failure 75819974 I50.9 carrying dxnot on diuretics- metoprolol 50 mg daily-farx iga 10 mg daily-leonardo tor fluid status closely-da sacha weights Diabetes mellitus 220265 09 E11.9 carrying dxjardianc e was given once in hospital, dont see it on her home med list or dc med list = asked nursing to ask dtr-lantus 65 units HS-monitor accuchecks TID Hypothyroidism 00284032 E03.9 carrying dx-synthro id 50 mcg po in am-TSH/T4 prn Hyperlipidemia 21559938 E78.5 carrying dx-lipitor 80 mg daily Gastroesop hageal reflux disease 468446058 K21.9 carrying dx-omepraz ole 40 mg po daily Obstructiv e sleep apnea syndrome 71175074 G47.33 intermitte nt CPAP use at home Opioid dependence 183491 00 F11.20 -monitor needed support in community- on oxycodone for leg pain = monitor usage and wean as tolerated Dermal mycosis 34579309 B36.9 yeast infection of groin-nyst atin TID x 7 days Anxiety 78374078 F41.9 -hydroxyzi ne 25 mg q8h prn for anxiety [id number] [facility] [address] 04/11/2024 20:47:59 04/17/2024 10:31:08 Cellulitis 057798813 L03.116 Resolved, now with healing wounds.Is getting very itchy, has hydroxyzin e ordered 25 mg q 8 hrs prn, but pt requests benadryl.W ill start diphenhydr amine 25 mg q 4 hrs prn.Contin ue bacitracin topical to BL legs qd and oxycodone 5 mg q 6 hrs prn for pain.Monit or for healing. Arterial insufficiency 166923652 I77.1 F/U with vascular as planned.Mo rubén ramos n. Retention of urine 83982 4002 R33.8 Improved, continue to monitor. Atrial fibrillation 4943 6004 I48.0 Rate in good control on amiodarone 200 mg daily and metoprolol 50 mg daily.Cont inue eliquis 5 mg BID for AC.Monitor HR and bleeding risk. Hypertensive disorder 38 198392 I10 Fair control on amlodipine 10 mg daily and metoprolol 50 mg daily.Leonardo tor BP and labs. Depressive disorder 0232 9007 F33.8 Mood good tonight, aside form wanting to go home.Nicanor nue duloxetine 20 mg daily, paroxetine 40 mg daily, trazadone 50 mg at bedtime, and melatonin 5 mg at bedtime.Anthony [place] moodPsych consult prn Congestive heart failure 73451382 I50.32 Appears euvolemic. Continue meds as above and Farxiga 10 mg daily.Leonardo tor resp. status, fluid status, wts and labs. Diabetes mellitus 538568 09 E11.9 In good control since here.Nicanor nue lantus 65 units daily and Farxiga 10 mg daily.Leonardo tor accuchecks TID Hypothyroidism 60348638 E03.8 Continue levothyrox ine 50 mcg dailyMonit or TSH prn. Hyperlipidemia 18245645 E78.49 Continue atorvastat in 80 mg dailyMonit or labs as outpt. Gastroesop hageal reflux disease 635702692 K21.9 No current sxs.Contin ue omeprazole 40 mg dailyMonit or GI sxs. Obstructiv e sleep apnea syndrome 99725836 G47.33 Continue CPAP with sleep.F/U prn. Opioid dependence 185442 00 F11.20 On oxycodone chronicall y.Monitor use and f/u with pcp as planned. Candidiasis of vagina 72 227967 B37.31 Not improving with nystatin.W ill start diflucan 150 mg x 1 and repeat in 1 wk. [id number] IBETH PRICE NP [address] [address] 04/18/2024 08:27:20 04/19/2024 14:02:05 Cellulitis 627846905 L03.116 Improved. now with healing woundsdiph enhydramin e 25 mg q 4 hrs prn available for itch per pt. request; currently not a problemCon tinue bacitracin topical to BL legs qd and oxycodone 5 mg q 6 hrs prn for pain.Due to c/o burning like pain, will add gabapentin 100 mg tid, monitor effect.Mon itor for healing.Ch jayesh CBC, BMP x 1 in am Arterial insufficiency 809828513 I77.1 F/U with vascular as planned.Anthony merazRefer to [facility] for outpt. mgmt. upon d/c. Retention of urine 52257 4002 R33.8 Improved, continue to monitor. Atrial fibrillation 4943 6004 I48.0 Rate in good control on amiodarone 200 mg daily and metoprolol 50 mg daily.Cont inue eliquis 5 mg BID for AC.Monitor HR and bleeding risk. Hypertensive disorder 38 543303 I10 Fair control on amlodipine 10 mg daily and metoprolol 50 mg daily.BP elevated the past few days, ? checked prior to meds. Will have nurse repeat post meds.Monit or BP and labs. Depressive disorder 3548 9007 F33.8 Continue duloxetine 20 mg daily, paroxetine 40 mg daily, trazadone 50 mg at bedtime, and melatonin 5 mg at bedtime.Anthnoy [place] moodPsych consult prn Congestive heart failure 52431445 I50.32 Appears euvolemic. Continue meds as above and Farxiga 10 mg daily.Leonardo tor resp. status, fluid status, wts and labs. Diabetes mellitus 848868 09 E11.9 In fair control since here.Nicanor nue lantus 65 units daily and Farxiga 10 mg daily.Leonardo tor accuchecks TID Hypothyroidism 19603012 E03.8 Continue levothyrox ine 50 mcg dailyMonit or TSH prn. Hyperlipidemia 68797423 E78.49 Continue atorvastat in 80 mg dailyMonit or labs as outpt. Gastroesop hageal reflux disease 557231556 K21.9 No current sxs.Contin ue omeprazole 40 mg dailyMonit or GI sxs. Obstructiv e sleep apnea syndrome 51734886 G47.33 Continue CPAP with sleep.F/U prn. Opioid dependence 464208 00 F11.20 On oxycodone chronicall y.Monitor use and f/u with pcp as planned. Candidiasis of vagina 72 118446 B37.31 Not improving with nystatin.D iflucan 150 mg x 1 given, to repeat in 1 wk. [id number] Raiza Madsen NP [address] [address] 04/19/2024 08:18:47 04/20/2024 13:31:13 Cellulitis 602156076 L03.116 resolved with abx in hospitalno w with healing woundsdiph enhydramin e 25 mg q 4 hrs prn available for itch per pt. request; currently not a problemCon tinue bacitracin topical to BL legs qd and dressing per wound teamoxycod one 5 mg q 6 hrs prn for pain.*noe pentin was added at rehab 100 mg po tid for burning painmonito r ckd and need to titrate outpt with pcpmonitor with vna, pcp, and wound clinica oupt Arterial insufficiency 532880440 I77.1 F/U with vascular as planned.Re marichuy to [facility] for outpt. mgmt. upon d/c. (referral given)vna services outpt with pcp to follow outpt with wound clinic Retention of urine 29142 4002 R33.8 Improved, continue to monitor. Atrial fibrillation 4943 6004 I48.0 Rate in good control on amiodarone 200 mg daily and metoprolol 50 mg daily.Cont inue eliquis 5 mg BID for AC.Monitor outpt with pcp and cardiology outpt Hypertensive disorder 38 739485 I10 hospital dc'd losartan 50 mg po daily and furosemide 40 mg po dailyFair control with some labile pressures at rehab on amlodipine 10 mg daily and metoprolol 50 mg daily.BP elevated the past few days, ? checked prior to meds.Monit or BP and labs oupt with pcp Depressive disorder 3548 9007 F33.8 Continuedu loxetine 20 mg dailyparox etine 40 mg dailytraza done 50 mg at bedtimemel atonin 5 mg at bedtime.Mo nitor mood with pcp outptPsych consult prn outpt Congestive heart failure 79372146 I50.32 Appears euvolemic. Continue meds as above and Farxiga 10 mg daily.Leonardo escalante outpt with pcp Diabetes mellitus 392792 09 E11.9 In fair control since here. 100-200s? if higher 200s related to infectiona lso glipizide and metformin was dc in hosp for ckd, monitor for need to add with pcp outptConti nuelantus 65 units dailyFarxi ga 10 mg daily.Leonardo escalante accuchecks TID at home and bring log to pcp on 04/26/24. Hypothyroidism 92367001 E03.8 Continuele vothyroxin e 50 mcg dailyMonit or TSH prn outpt withpcp Hyperlipidemia 51099965 E78.49 Continue atorvastat in 80 mg dailyMonit or labs as outpt. Gastroesop hageal reflux disease 464159785 K21.9 No current sxs.Contin ueomeprazo le 40 mg dailyMonit or GI sxs. outpt with pcp Obstructiv e sleep apnea syndrome 01731212 G47.33 Continue CPAP with sleep.F/U prn outpt prn Opioid dependence 651840 00 F11.20 On oxycodone chronicall y.will cont on home dose and since on chronicall y will not send with any additional oxycodoneM onitor use and f/u with pcp as planned outpt Candidiasis of vagina 72 506645 B37.31 Not improving with nystatin.D iflucan 150 mg x 1 given at rehabmonit or with pcp outpt Chronic ki dney disease 988714966 N18.9 ckd per hosp paperwork with meds adjusted:g lipizide, losartan, furosemide , and metformin were dc'dlabs as above stablemoni tor labs and need to adjust outpt with pcp Pain in le ft lower limb 586120048 M79.605 addfelicia was ready for discharge and now reporting left lower leg pain and states she can't put weight on itwhen attempting to get dressed for homefamily refuses therapy eval and xray here,famil y requests 911 call, and emergent evaluation at [facility] Concerns Section Related Observation LastModified by Organization Detai ls LastModified Time None Recorded Concern Status LastModified by Organization Details LastModified Time None Recorded Advance Directives Directive Y: Payers Encounter Date Sequence Insurance Name Policy Number Policy Meza Covered Member ID Meza Member ID Guarantor Name 04/08/2024 1 [facility] - DOS ON OR AFTER 2022 - MEDICARE [place]VANTAGE [place]/ADV ANTAGE - PPO) Mary Lou Cisneros [id number] Mary Lou Cisneros 04/11/2024 1 [facility] - DOS ON OR AFTER 2022 - [place]/ADV ANTAGE - PPO) Mary Lou Cisneros [id number] Mary Lou Cisneros 04/18/2024 1 [facility] - DOS ON OR AFTER 2022 - [place]/ADV ANTAGE - PPO) Mary Lou Cisneros [id number] Mary Lou Cisneros 04/19/2024 1 [facility] - DOS ON OR AFTER 2022 - [place]/ADV ANTAGE - PPO) Mary Lou Cisneros [id number] Mary Lou Cisneros Notes Date Note Type Note Provider Name and Address Organization Details Recorded Time 04/08/2024 text/html Patient is a 73 yo female being seen for initial intake visit. She presented to [facility] for eval of left leg pain. She admitted on mar 18 and dc on mar 21 with 6 day course of doxy which she reports she was compliant with. Initial bld cx + thought to be contaminated, additional 3 were neg. They didnt feel her sx were recurrence of cellulitis and likely dt some arterial insufficiency seen on US. She was recommended to f/up with vascular outpatient. SHe received dilaudid for her pain with improvement and recommended outpatient f/up with vascular. She was seen by PT and was recommended for transfer to [facility] for continued care and rehab. On arrival from hospital patient reporting to nursing that she hasnt urinated. No report of this occurring while she was at [facility] and she did not have a lovelace. She reports she feels like she has to urinate, asked nursing to get a bladder scan now to assess. Patient has pain to legs chornic, left more than right. She is using oxycodone with good affect PMH depression, morbid obesity, ANILA< asthma, chf, a flutter on amio and eliquis, opiate dependence, hld, htn, DM REBECA SOTOMAYOR, SHEET [employer]EM[employer] [address], [address], [place], [address], [facility] 04/08/2024 13:05:26 04/11/2024 text/html This is a 73 yo woman who is here for rehab after an ED visit for left leg pain after recovery from recent cellulitis.[facility], txed with ceftriaxone and vanco and sent home on po doxy to complete 10 day course.Daughter said she had been compliant with this.Also during that hospitalization she had mild MARK on CKD and she got IV fluids and losartan and lasix were stopped. She returned to the ED on04/05with continued LLE pain. She was using percocet at home with minimal relief. She also c/o vaginal itching.Eval for arterial and venous issues were non-acute.It appeared that wounds were not infected and legs appeared to have chronic changes.Blood cxs were drawn and one bottle started growing GPC, she got cefepime and vanco x1, but then other bottles were neg and GPC were ID'd as coag neg staph and presumed contaminant.Pain was controlled with dilaudid and then oxycodone.Yeast infection was txed.PT eval recommended STR.She was transferred here for rehab on 04/08. She continues to need mod assist for most activities.I see her with a romansh speaking staff member.She is in bed, wakes easily and is pleasant and conversant.She says the pain isn't too bad, but now it is itching a lot. Also still having vaginal itching.She wants to know when she can go home. Her PMH includes HTN, AODM, PVD, venous stasis, ANILA, asthma, CHF pEF, HLD, morbid obesity, A flutter on amiodarone and Eliquis, urge incontinence, OA, OP, and fibromyalgia. Genny Aguilar MD [address] [place] [address], [address], [place], [address], [facility] 04/14/2024 20:04:50 04/18/2024 text/html This is a 73 yo woman who is here for rehab after an ED visit for left leg pain after recovery from recent cellulitis.[facility], txed with ceftriaxone and vanco and sent home on po doxy to complete 10 day course.Daughter said she had been compliant with this.Also during that hospitalization she had mild MARK on CKD and she got IV fluids and losartan and lasix were stopped. She returned to the ED on04/05with continued LLE pain. She was using percocet at home with minimal relief. She also c/o vaginal itching.Eval for arterial and venous issues were non-acute.It appeared that wounds were not infected and legs appeared to have chronic changes.Blood cxs were drawn and one bottle started growing GPC, she got cefepime and vanco x1, but then other bottles were neg and GPC were ID'd as coag neg staph and presumed contaminant.Pain was controlled with dilaudid and then oxycodone.Yeast infection was txed.PT eval recommended STR.She was transferred here for rehab on 04/08. Since she has been here, Mary Lou has been doing well.Working with rehab, making gains.VSS, although BP running high the past few days.BS 100s-200sOverall her leg is feeling better, but still has a significant burning sensation in her left leg. She has no other complaints at this time.Necrotic wounds on LLE dry, intact. Gaiter area pink with dry skin. Her PMH includes HTN, AODM, PVD, venous stasis, ANILA, asthma, CHF pEF, HLD, morbid obesity, A flutter on amiodarone and Eliquis, urge incontinence, OA, OP, and fibromyalgia. IBETH PRICE, OSITO [address], [address], [place], [address], [facility] 04/18/2024 14:21:33 04/19/2024 text/html This is a 73 yo woman who is here for rehab after an ED visit for left leg pain after recovery from recent cellulitis seen for a discharge visit today. Her PMH includes HTN, AODM, PVD, venous stasis, ANILA, asthma, CHF pEF, HLD, morbid obesity, A flutter on amiodarone and Eliquis, urge incontinence, OA, OP, and fibromyalgia. Of note per records:[facility], txed with ceftriaxone and vanco and sent home on po doxy to complete 10 day course.Daughter said she had been compliant with this.Also during that hospitalization she had mild MARK on CKD and she got IV fluids and losartan and lasix were stopped.She returned to the ED on04/05with continued LLE pain. She was using percocet at home with minimal relief. She also c/o vaginal itching.Eval for arterial and venous issues were non-acute.It appeared that wounds were not infected and legs appeared to have chronic changes.Blood cxs were drawn and one bottle started growing GPC, she got cefepime and vanco x1, but then other bottles were neg and GPC were ID'd as coag neg staph and presumed contaminant.Pain was controlled with dilaudid and then oxycodone.Yeast infection was txed.PT eval recommended STR. ckd per hosp paperwork with meds adjusted:glipizide, losartan, furosemide, and metformin were dc'dmonitor labs and need to adjust outpt with pcp She was transferred to [facility] for rehab on 04/08 and working with rehab showing improvement and felt she is stable to discharge home. Vitals stable here and BP labile, last at 132/72 this am. 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 She will continue with dressings Santyl and DCD. QD and PRN per note. BS 100s-200s while here. May have been on higher side related to infection. Will need to follow up with pcp outpt. Pt should keep a log of BS. per social work note; Mary Lou Hess is scheduled to be discharged home on Friday, April 19, 2024. She will be picked up by family @ 1:00 PM. A referral has [facility] for ongoing skilled services. She will be seen on Wednesday @ 4:00 PM. [facility] notified of discharge with request to resume services. A follow-up appointment has been scheduled with her PCP, Dr. Kimmy Myers @ . It will be on April 26 @ 9:45 AM.Mary Lou Hess is scheduled to be discharged home on Friday, April 19, 2024. She will be picked up by family @ 1:00 PM. A referral has been made to [facility] for ongoing skilled services. She will be seen on Wednesday @ 4:00 PM. [facility] notified of discharge with request to resume services. A follow-up appointment has been scheduled with her PCP, Dr. Kimmy Myers @ . It will be on April 26 @ 9:45 AM. On exam, She is sleeping this am, groggy from resting period. No pain and happy to go home. Necrotic wounds on LLE dry, intact. lower extremities area pink with dry skin. addendumNursing reports pt fell last night in the bathroom. family arrived to pick pt up for discharge and now request for her to go to the ER for evaluation of her left leg pain. Daughter states they do not want to wait for therapy to eval or xray here to eval for any abnormalities. On reexamination, no increased swelling, deformity, or ecchymotic area noted from baseline ulcer of left lower extremity. Pulses positive and good cms. She refuses to put weight on the left lower leg this am and states she can't. Will leave this as a discharge in case she goes home from ER. discussed with inventory administrator at facility Raiza Madsen, [facility]IT[facility] [address], [address], [place], [phone], [facility] - [facility] 04/19/2024 13:13:44 OBGyn Episode No OBEpisode recorded.
--- OUTSIDE RECORDS SUMMARY | 2024-09-01 15:45 | XMS_ITS | Encounter Summary ---
Author Organization [employer] Address [address] [place] [address] Care Team Providers Care Lei Seller Name Role Phone Amanda Watkins MD Primary Care Provide r Hiro Ram Unavailable Unavailable Reason for Visit * Reason Onset Date Comments Durable Medical Equipment 07/26/2024 Encounter Details Date Type Department Care Team (Late st Contact Info) Description 07/26/2024 Telephone [facility] MEDICINE [address] [place] [address] Amanda Watkins MD [address] [place] [address] Durable Medical Equipment Social History Tobacco Use Types Packs/Day Years [...] encounter Miscellaneous Notes * Telephone Encounter - Sky Sánchez - 07/26/2024 12:29 PM EST Tc from Daughter calling in regards to DME stating [facility] stating they do not take pt's insurance and was advised to have equipment send to another supply pharmacy. DME: Wipes Bed Pads Adult Diapers documented in this encounter Plan of Treatment Upcoming Encounters Date Type Department Care Team (Late st Contact Info) Description 09/06/2024 10:00 AM EST Clinical Support [facility] MEDICINE [address] [place] [address] 09/07/2024 2:00 PM EST Telemedicine [facility] MEDICINE [address] [place] [address] Kayley Alanis, PHILLIP 09/14/2024 11:00 AM EST Telemedicine [facility] MEDICINE [address] [place] [address] 10/24/2024 2:00 PM EDT Office Visit [facility] OPTOMETRY [address] [place] [address] Elisa Cummings, OD [address] [place] [address] documented as of this encounter Visit Diagnoses Not on filedocumented in this encounter Additional Health Concerns Assessment Noted Time PHQ-9 Depression Total Score: 10 024 3:23 PM EDT documented as of this encounter Care Teams Lei Seller Relationship Specialty Start Date End Date Amanda Watkins MD [address] [place] [address] PCP - General Family Medicine 04/07/19 Hiro Ram FNP [address] [place] [address] Nurse Practitioner Family Medicine 07/06/23 [facility] 07/03/22 08/16/24 [facility] 08/10/24 documented as of this encounter
--- OUTSIDE RECORDS SUMMARY | 2024-09-01 15:45 | XMS_ITS | Clinical Summary ---
Author Organization [facility] Address [address] [facility] [address] [place] [address] Phone Care Team Providers Care Signs Sales Representative Name Role Phone Amanda Watkins MD Primary Care Provide r Allergies Active Allergy Reactions Criticality Noted Date Comments Codeine 11/18/2022 Medications Alcohol Swabs (Alcohol Prep) 70 % pads USE FOUR TIMES DAILY DIRECTED 02/16/20 23 Active amLODIPine (NORVASC) 10 MG tablet Take 10 mg by mouth 02/16/20 23 Active atorvastatin (LIPITOR) 80 MG tablet Take 80 mg by mouth at bed time 12/09/19 23 Active Trulicity 0.75 MG/0.5ML solution pen-injector INJECT ONE PEN (=0.75MG) SUBCUTANEOUSLY ONCE A WEEK DIRECTED 02/16/20 23 Active fenofibrate micronized (LOFIBRA) 134 MG capsule Take 134 mg by mouth 02/16/20 23 Active Flovent HFA 220 MCG/ACT inhaler INHALE 1 PUFF TWICE DAILY RINSE MOUTH AFTER USING. 02/16/20 23 Active glipiZIDE (GLUCOTROL XL) 5 MG 24 hr tablet TAKE 1 TABLET BY MOUTH EVERY MORNING DO NOT BREAK, CRUSH, DISSOLVE OR CHEW 01/06/20 23 Active hydrOXYzine (ATARAX) 25 MG tablet Take 25 mg by mouth every 8 (eight) hours if needed 02/16/20 23 Active Lantus 100 UNIT/ML injection INJECT 65 UNITS SUBCUTANEOUSLY EVERY MORNING 02/16/20 23 Active LORazepam (ATIVAN) 1 MG tablet Take 1 mg by mouth every 8 (eight) hours if needed 12/10/19 23 Active losartan (COZAAR) 50 MG tablet Take 50 mg by mouth 02/16/20 23 Active metFORMIN (GLUCOPHAGE) 1000 MG tablet TAKE 1 TABLET BY MOUTH TWICE DAILY IN THE MORNING AND IN THE EVENING WITH FOOD 12/09/19 Active metoprolol succinate XL (TOPROL XL) 50 MG 24 hr tablet Take 50 mg by mouth in the morning and 50 mg in the evening. 12/09/19 Active nitroglycerin (NITROSTAT) 0.3 MG SL tablet DISSOLVE 1 TABLET UNDER THE TONGUE EVERY 5 MINUTES NEEDED FOR CHEST PAIN. CALL 911 IF NO RELIEF. NO MORE THAN 3 TABLETS IN 15 MINUTES 02/18/20 Active oxyCODONE-aceta minophen (PERCOCET) 10-325 MG per tablet TAKE 1 TABLET BY MOUTH EVERY TWELVE HOURS NEEDED FOR SEVERE PAIN 02/20/20 Active traZODone (DESYREL) 100 MG tablet Take 100 mg by mouth every night 01/06/20 Active PARoxetine (PAXIL) 40 MG tablet Take 40 mg by mouth 01/06/20 Active Oyster Shell Calcium 500 MG tablet Take 1 tablet by mouth every morning and evening 12/09/19 Active Dapagliflozin Propanediol (Farxiga) 10 MG tablet Take 10 mg by mouth in the morning. 30 tablet 11 12/14/19 24 Active Active Problems Problem Noted Date Diagnosed Date Essential (primary) hypertension 03/01/2023 Osteoporosis 03/01/2023 Type 2 diabetes mellitus wit h diabetic autonomic (poly)neuropathy 03/01/2023 Abnormal gait 11/18/2022 03/01/2023 Overview (03/01/2023): Last Assessment & Plan: Wheelchair to be prescribed Anxiety attack 11/18/2022 03/01/2023 Overview (03/01/2023): Last Assessment & Plan: As above Pain in left knee 11/18/2022 03/01/2023 Pain of knee region 11/18/2022 03/01/2023 Overview (03/01/2023): Last Assessment & Plan: MRI ordered today referral to orthopedics Acetaminophen arthritis and voltaren gel added today Agoraphobia with panic attacks 10/06/2018 0 03/01/2023 Varicose veins of lower extremity 10/06/2018 03/01/2023 Ingrowing toenail 08/17/2018 03/01/2023 Injury of face 01/05/2018 03/01/2023 Pain in left arm 01/05/2018 03/01/2023 Candidiasis of vagina 12/24/2017 03/01/2023 Cough 12/24/2017 03/01/2023 Urinary tract infectious disease 09/30/2017 03/01/2023 Coronary atherosclerosis 07/16/2016 023 Hyperlipidemia 07/16/2016 03/01/2023 Onychomycosis of toenails 07/16/20162022 Backache 04/07/2013 03/01/2023 Mixed anxiety and depressive disorder 03/24/2013 03/01/2023 Overview (03/01/2023): Last Assessment & Plan: Continue to follow with Hiro Ram Type 2 diabetes mellitus 01/09/2013 023 Overview (03/01/2023): Last Assessment & Plan: Glucose at home seems better - Lab Results Component Value Date HGBA1C 9.7 (A) 11/18/2022 HGBA1C 8.6 (H) 08/04/2021 - Lab Results Component Value Date MICROALBUR 66.2 08/04/2021 CREATININE 1.01 10/24/2022 - - Diabetic eye exam: pending - Diabetic foot exam: pending - Continue lifestyle modifications - Continue current medications - Encounters Date Type Department Care Team Description 08/11/2024 Office Communication [facility] [address] [place] [phone] Rose Rubio from Last 3 Months Immunizations Name Administration Dates Next Due Hepatitis B 06/07/2007,11/01/2006,03/12/2006 Influenza Split 05/11/2012 Influenza, Quadrivalent, Preservative Free 07/08 Influenza, Quadrivalent, With Preservative 09/30,08/17/2016,05/07/2015 MMR 03/12/2006 Pneumococcal Conjugate 13-Valent 07/16/2016 Pneumococcal Polysaccharide 02/17/2013, 6 Td 03/12/2006 Zoster 05/31/2015 Social History Tobacco Use Types Packs/Day Years Used Date Smoking Tobacco: Never Tobacco Cessation:Counseling Given: Not Answered Alcohol Use Standard Drinks/Week Comments Never 0 (1 standard drink = 0.6 oz pur e alcohol) Comments Unknown Sex and Gender Information Value Date Recorded Sex Assigned at Not on file Legal Sex Female 4:56 PM EST Gender Identity Not on file Sexual Orientation Not on file Last Filed Vital Signs Vital Sign Reading Time Taken Comments Blood Pressure 139/65 07/07/2023 1:05 PM EST Pulse 68 07/07/2023 1:05 PM EST Temperature - - Respiratory Rate - - Oxygen Saturation 97% 07/07/2023 1:05 PM EST Inhaled Oxygen Concentration - - Weight 109 kg (241 lb) 07/07/2023 1:05 PM EST Height - - Body Mass Index - - Plan of Treatment Upcoming Encounters Date Type Department Care Team (Late st Contact Info) Description 09/07/2024 2:15 PM EST Office Visit [facility] [address] AGUILERA [address] [place] [phone] Tl Ibarra MD [address] [facility] [address] [place] [phone] Health Maintenance Due Date Last Done Comments Breast Cancer Screening 1949 Colorectal Cancer Screening: Annual FOBT 1998 Colorectal Cancer Screening: Colonoscopy 1998 Colorectal Cancer Screening: Sigmoidoscopy 1998 Diabetes: Ophthalmology Exam 03/01/2023 Diabetes: Pedal Pulse Checked 03/01/2023 Diabetes: Sensory Foot Exam 03/01/2023 Diabetes: Visual Foot Exam 03/01/2023 Diabetes: Hemoglobin A1C 06/06/2024 03/06/2024 Hepatitis B Vaccine Aged Out 06/07/2007, 11/01/2006, 03/12/2006 No longer eligible based on patient's age to complete this topic Pneumococcal Vaccine: 65+ Years Completed 12/06/2023, 07/16/2016, 02/17/2013, Additional history exists Influenza Vaccine Completed 06/23/2024, , 09/30/2017, Additional history exists Insurance [facility] ([id number]) [place] [id number] [facility] ([id number]) [place] [id number] Care Teams Signs Sales Representative Relationship Specialty Start Date End Date Amanda Watkins MD [address] [place] [phone] PCP - General Internal Medicine 03/01/23
--- OUTSIDE RECORDS SUMMARY | 2024-09-01 15:45 | XMS_ITS | Data Portability ---
Author Organization [facility] [place] [facility] [employer] Address [address] [place] [address] Care Team Providers Care Sql Server Dba Name Role Phone HIM CCA OTHER [facility] OTHER [phone] Assessment Encounter Date Assessment Date Assessment LastModified by Organization Details LastModified Time 12/30/2023 12/30/2023 I provided real -time medical direction via phone for this encounter, and was available for additional phone based assistance as needed. I have reviewed and agree with the Assessment and Plan as documented by the Institute Scientist. We discussed the diagnostic uncertainty of home visits and the risk associated with this. In this case the patient and I felt this to be an acceptable and reasonable amount of risk given the benefit of avoiding an ED visit. The patient given the opportunity to ask questions. Advised if develops CP/severe SOB/turning blue/uncontrolle d n/v/d or black/bloody emesis or stool/ AMS/ syncope/severe pain in the leg/hi fever to call 911- verbalized understanding of instruction [email or web address] Not available 12/30/2023 14:22:44 02/09/2024 02/09/2024 I provided real -time medical direction via phone for this encounter, and was available for additional phone based assistance as needed. I have reviewed and agree with the Assessment and Plan as documented by the Institute Scientist. We discussed the diagnostic uncertainty of home visits and the risk associated with this. In this case the patient and I felt this to be an acceptable and reasonable amount of risk given the benefit of avoiding an ED visit. Daughter had wanted to bring the patient to the ER to have her admitted as she is having trouble with personal hygiene at home- advised afebrile with normal blood sugar-given her exam not likely she would be admitted and they would wait a very long time to be seen in the ER. Will try a longer course of antibiotic ointment and pills-reinforced elevating legs on a pillow in her recliner might prevent some contamination with urine if she is incontinent and to wear depends. - the patient/daughter given the opportunity to ask questions. To the care team: Note sent to [facility] to reach out but patient needs wound care clinic evaluation, wound care VNA and increased support at home. If family unable to maintain hygiene at home patient may require SNF Advised if develops CP/severe SOB/turning blue/uncontrolle d n/v/d or black/bloody emesis or stool/ AMS/ syncope/ hi fever /spreading redness or intolerable leg pain to call 911- verbalized understanding of instruction [email or web address] Not available 02/10/2024 00:01:48 03/27/2024 03/27/2024 I provided real -time medical direction via phone for this encounter, and was available for additional phone based assistance as needed. I have reviewed and agree with the Assessment and Plan as documented by the Institute Scientist. We discussed the diagnostic uncertainty of home visits and the risk associated with this. In this case I felt this to be an acceptable and reasonable amount of risk given the benefit of avoiding an ED visit. The patient /daughter given the opportunity to ask questions. Advised if develops CP/severe SOB/turning blue/uncontrolle d n/v/d/AMS/ syncope/ hi fever /marked erythema or swelling of the left leg with severe pain to call 911- verbalized understanding of instruction [email or web address] Not available 03/27/2024 16:48:02 05/29/2024 05/29/2024 service called for rash found 73 lori with hx poorly controlled T2DM urinary incont HTN c/o 1 wk itcy red, perineal rash also c/o urinary freq, denies dysuria VS noted T 99.3, otherwise stable reported exam red, excoriated interigenous groin rash UA: +LE, +Nitrite, +bld, +glu #Tinea Cruris clotrimazole topical bid #Urinary frequency +UA but complicated with incont -f/up UCx, treat as indicated otherwise return to primary team [email or web address] Not available 05/29/2024 17:22:24 Plan of Treatment Reminders Order Date Submit Date Provider Last Modified By Organization Details Last Modified Time Details Appointments None recorded. Lab glucose, fingerstick , blood 2023 024 [email or web address] 0 [facility], [address] [place], [address], 4 14:21:33 glucose, fingerstick , blood 2023 024 [email or web address] 0 [facility], [address] [place], [address], 4 16:33:19 culture, urine 2023 024 [place] [facility], [address] [place] [address], [id number], 08:09:10 urinalysis, dipstick 2023 024 [place] [facility], [address] [place], [address], 20:30:58 Referral None recorded. Procedures None recorded. Surgeries None recorded. Imaging None recorded. Medication Orders doxycycline hyclate 100 mg capsule 2023 024 [facility], [address] [place] [address], [id number], 4 15:32:25 doxycycline hyclate 100 mg tablet 2023 024 [email or web address] 0 Not available 14:25:52 bacitracin 500 unit/gram topical ointment 2023 024 [email or web address] 0 Not available 14:25:53 mupirocin 2 % topical ointment 2023 024 [facility], [address] [place] [address], [id number], 4 15:32:25 doxycycline hyclate 100 mg tablet 2023 024 [email or web address] 0 [facility], [address] [place] [address], [id number], 4 16:35:58 doxycycline hyclate 100 mg capsule 2023 024 [id number], [address] [place], [address], 4 16:36:03 mupirocin 2 % topical ointment 2023 024 [id number], [address] [place], [address], 4 16:36:03 bacitracin 500 unit/gram topical ointment 2023 024 [email or web address] 0 [facility], [address] [place] [address], [id number], 4 11:28:20 bacitracin 500 unit/gram topical ointment 2023 024 [facility], [address] [place] [address], [id number], 4 14:30:32 clotrimazol e 1 % topical cream 2023 024 [facility], [address] [place] [address], [id number], 4 10:37:01 Patient TargetsNo targets recorded. Patient Instructions Encounter Date Encounter Id Patient Instructions Last Modified By Organization Details Last Modified Time 12/30/2023 [id number] wound care* [email or web address] Not available 14:25:52 02/09/2024 [id number] wound care* [email or web address] Not available 16:35:58 03/27/2024 [id number] wound care* Not available 11:28:21 Reason for Referral None Reported. Results Created Date Observation Date Name Description Value Unit Range Abnormal Flag Note LastModifiedBy Organization Detail LastModifiedTime 12/30/19 24 12/30/2023 gluco se, finge rstic k, blood Blood Glucose: mg/dl 185 Not Available [facility] [address] [place] [address], [phone], 12/30/2023 14:21:17 02/09/20 24 02/09/2024 gluco se, gemma rstic k, blood Blood Glucose: mg/dl 148 Not Available [facility] [address] [place] [address], [phone], 02/09/2024 16:30:22 05/29/20 24 05/31/2024 URINE CULTU RE,CO MPREH ENSIV E urine culture,comp rehensive Final report Not Available [facility] [address] [place], [address], 05/31/2024 08:09:10 05/29/20 24 05/31/2024 URINE CULTU RE,CO MPREH ENSIV E result 1 COMMEN T Mixed uroge nital mary Great er than 100,0 00 colon y formi ng units per mL Not Available [facility] ([facility] [address] [place], [address], 05/31/2024 08:09:10 Result Notes None recorded. Medical Equipment None Reported. Allergies Allergen ID Allergen Name Allergen Category Reaction Reaction Severity Criticality Documentation Date Start Date Code Code System Note Provider Name and Address Organization Details Recorded Time 5119 codeine medicatio n Not available Not available Not available 12/30/2023 2480 RxNorm Radha Foster MD [address] [place] [address],[address], [place], [phone], [facility] 14:14:47 Medications Name Sig Start Date Stop Date Status Note LastModified by Organization Details LastModified Time medbox status USE DIRECTED active Not Available Not Available No t Available losartan 50 mg tablet TAKE 1 TABLET BY MOUTH EVERY MORNING active Not Available Not Available No t Available Santyl 250 unit/gram topical ointment APPLY A THIN LAYER TO lceras necrticas en la extremidad inferior izquierda active Not Available Not Available No t Available furosemide 40 mg tablet TAKE 1 TABLET BY MOUTH ONCE DAILY active Not Available Not Available No t Available atorvastatin 80 mg tablet TAKE 1 TABLET BY MOUTH EVERY EVENING active Not Available Not Available No t Available doxycycline hyclate 100 mg capsule TAKE 1 CAPSULE BY MOUTH TWICE A DAY AFTER MEALS FOR 10 DAYS active Not Available Not Available No t Available nitroglyceri n 0.3 mg sublingual tablet DISSOLVE 1 TABLET UNDER THE TONGUE EVERY 5 MINUTES NEEDED FOR CHEST PAIN. CALL 911 IF NO RELIEF. NO MORE THAN 3 TABLETS IN 15 MINUTES active Not Available Not Available N ot Available metoprolol tartrate 100 mg tablet TAKE 1 TABLET BY MOUTH TWICE DAILY IN THE MORNING AND IN THE EVENING active Not Available Not Available No t Available amiodarone 200 mg tablet TAKE 1 TABLET BY MOUTH EVERY MORNING active Not Available Not Available No t Available metoprolol succinate ER 50 mg tablet,exten ded release 24 hr TAKE 1 TABLET BY MOUTH EVERY MORNING active Not Available Not Available No t Available glipizide ER 5 mg tablet, extended release 24 hr TAKE 1 TABLET BY MOUTH EVERY MORNING active Not Available Not Available No t Available Lantus U-100 Insulin 100 unit/mL subcutaneous solution INJECT 60 UNITS SUBCUTANEOU SLY EVERY MORNING active Not Available Not Available No t Available bacitracin 500 unit/gram topical ointment APPLY TOPICALLY TO THE AFFECTED AREA(S) EVERY DAY active Not Available Not Available No t Available omeprazole 40 mg capsule,lenora yed release TAKE 1 CAPSULE BY MOUTH EVERY MORNING BEFORE BREAKFAST. DO NOT BREAK, CRUSH, DISSOLVE OR CHEW active Not Available Not Available No t Available aspirin 81 mg tablet,delay ed release TAKE 1 TABLET BY MOUTH EVERY EVENING active Not Available Not Available No t Available triamcinolon e acetonide 0.1 % topical cream APPLY TOPICALLY TO THE AFFECTED AREA(S) TWICE DAILY IN THE MORNING AND AT BEDTIME NEEDED FOR PAIN OR SWELLING active Not Available Not Available No t Available fenofibrate micronized 134 mg capsule TAKE 1 CAPSULE BY MOUTH EVERY MORNING active Not Available Not Available No t Available levothyroxin e 25 mcg tablet TAKE 1 TABLET BY MOUTH EVERY MORNING BEFORE BREAKFAST active Not Available Not Available No t Available acetaminophe n ER 650 mg tablet,exten ded release TAKE 1 TABLET BY MOUTH EVERY 8 HOURS NEEDED FOR MILD PAIN. DO NOT BREAK, CRUSH, DISSOLVE OR CHEW. active Not Available Not Available No t Available oxycodone-ac etaminophen 5 mg-325 mg tablet TAKE 1 TABLET BY MOUTH EVERY 6 HOURS NEEDED FOR PAIN active Not Available Not Available No t Available calcium 500 mg (as calcium carbonate 1,250 mg) tablet TAKE 1 TABLET BY MOUTH TWICE DAILY IN THE MORNING AND IN THE EVENING active Not Available Not Available No t Available oxycodone-ac etaminophen 10 mg-325 mg tablet TAKE 1 TABLET BY MOUTH EVERY TWELVE HOURS NEEDED FOR SEVERE PAIN active Not Available Not Available Not Available Ear Wax Removal Kit 6.5 % drops PLACE 5 DROPS IN EACH EAR TWICE DAILY FOR 5 DAYS active Not Available Not Available N ot Available trazodone 100 mg tablet TAKE 1 TABLET BY MOUTH AT BEDTIME active Not Available Not Available No t Available amlodipine 10 mg tablet TAKE 1 TABLET BY MOUTH EVERY MORNING active Not Available Not Available No t Available doxycycline monohydrate 100 mg capsule active Not Available Not Available Not Available levothyroxin e 50 mcg tablet TAKE 1 TABLET BY MOUTH EVERY MORNING active Not Available Not Available No t Available paroxetine 20 mg tablet active Not Available Not Available Not Available trazodone 150 mg tablet active Not Available Not Available Not Available metformin 1,000 mg tablet TAKE 1 TABLET BY MOUTH TWICE DAILY IN THE MORNING AND IN THE EVENING WITH FOOD active Not Available Not Available No t Available metoprolol tartrate 50 mg tablet TAKE 1 TABLET BY MOUTH TWICE DAILY IN THE MORNING AND IN THE EVENING active Not Available Not Available No t Available nystatin-tri amcinolone 100,000 unit/g-0.1 % topical cream active Not Available Not Available Not Available insulin syringe U-100 with needle 1 mL 31 gauge x 5/16 USE DAILY WITH INSULIN active Not Available Not Available No t Available hydroxyzine HCl 25 mg tablet TAKE 1 TABLET BY MOUTH EVERY 8 HOURS NEEDED FOR ANXIETY active Not Available Not Available No t Available mupirocin 2 % topical ointment APPLY SPARINGLY TO AFFECTED AREA TWICE A DAY active Not Available Not Available No t Available furosemide 20 mg tablet TAKE 3 TABLETS BY MOUTH EVERY DAY active Not Available Not Available No t Available mirtazapine 15 mg tablet TAKE 1/2 TABLET BY MOUTH AT BEDTIME active Not Available Not Available No t Available gabapentin 100 mg capsule TAKE 1 CAPSULE BY MOUTH THREE TIMES DAILY active Not Available Not Available Not Available paroxetine 40 mg tablet TAKE 1 TABLET BY MOUTH EVERY MORNING active Not Available Not Available No t Available clotrimazole 1 % topical cream APPLY TO AFFECTED AREA(S) AND SURROUNDING AREA(S) TWICE DAILY IN THE MORNING AND EVENING active Not Available Not Available No t Available doxycycline hyclate 100 mg tablet Take 1 tablet by oral route. 2023 active Not Available Not Available Not Jean lable oxycodone 5 mg tablet active Not Available Not Available No t Available Stool Softener-Lax ative 8.6 mg-50 mg tablet TAKE 1 TABLET BY MOUTH TWICE DAILY active Not Available Not Available No t Available Alcohol Prep Pads USE FOUR TIMES DAILY DIRECTED active Not Available Not Available Not Available metoprolol tartrate 25 mg tablet TAKE 1 TABLET BY MOUTH TWICE DAILY IN THE MORNING AND IN THE EVENING active Not Available Not Available No t Available duloxetine 20 mg capsule,lenora yed release TAKE 1 CAPSULE BY MOUTH EVERY EVENING active Not Available Not Available No t Available Flovent HFA 220 mcg/actuatio n aerosol inhaler INHALE 1 PUFF BY MOUTH TWICE DAILY. RINSE MOUTH AFTER USING. active Not Available Not Available No t Available diclofenac 1 % topical gel APPLY 2 GRAMS TOPICALLY 4 TIMES A DAY IN THE MORNING, AT NOON, IN THE EVENING, AND AT BEDTIME NEEDED FOR PAIN active Not Available Not Available No t Available melatonin 5 mg tablet TAKE 1 TABLET BY MOUTH AT BEDTIME NEEDED FOR SLEEP active Not Available Not Available No t Available OneTouch Verio test strips TEST BLOOD SUGAR THREE TIMES DAILY active Not Available Not Available Not Available Eliquis 5 mg tablet TAKE 1 TABLET BY MOUTH TWICE DAILY IN THE MORNING AND IN THE EVENING active Not Available Not Available No t Available Farxiga 10 mg tablet TAKE 1 TABLET BY MOUTH EVERY MORNING active Not Available Not Available No t Available Trulicity 0.75 mg/0.5 mL subcutaneous pen injector INJECT ONE PEN (=0.75MG) SUBCUTANEOU SLY ONCE A WEEK DIRECTED active Not Available Not Available No t Available OneTouch Delica Plus Lancet 33 gauge USE DIRECTED TO TEST BLOOD SUGAR THREE TIMES DAILY active Not Available Not Available Not Available Vitals Date Recorded Body height Heart rate Oxygen saturation Oxygen saturation in Arterial blood by Pulse oximetry Respiratory rate Body weight Body temperature Systolic blood pressure Diastolic blood pressure Provider Name and Address Organization Details Last Updated DateTime 4 144.78 cm 52 /min 92 % 92 % 18 /min 079299. 632 g 98.4 [degF] 119 mm[Hg] 73 mm[Hg] Not Available [facility] 4 14:10:22 Date Recorded Heart rate Body height Body temperature Respiratory rate Oxygen saturation Oxygen saturation in Arterial blood by Pulse oximetry Body weight Systolic blood pressure Diastolic blood pressure Provider Name and Address Organization Details Last Updated DateTime 4 57 /min 154.94 cm 97.8 [degF] 16 /min 92 % 92 % 980778. 184 g 126 mm[Hg] 76 mm[Hg] Not Available [facility] 4 16:16:18 Date Recorded Body temperature Oxygen saturation Oxygen saturation in Arterial blood by Pulse oximetry Body weight Respiratory rate Heart rate Systolic blood pressure Diastolic blood pressure Provider Name and Address Organization Details Last Updated DateTime 4 97.6 [degF] 96 % 96 % 053260. 592 g 16 /min 62 /min 130 mm[Hg] 66 mm[Hg] Not Available [facility] 4 15:32:02 Date Recorded Respiratory rate Oxygen saturation Oxygen saturation in Arterial blood by Pulse oximetry Body height Heart rate Body temperature Body weight Systolic blood pressure Diastolic blood pressure Provider Name and Address Organization Details Last Updated DateTime 4 16 /min 94 % 94 % 157.48 cm 60 /min 98.7 [degF] 344677. 448 g 129 mm[Hg] 77 mm[Hg] Not Available [employer] [facility] 4 11:19:40 Date Recorded Heart rate Body height Body temperature Respiratory rate Oxygen saturation Oxygen saturation in Arterial blood by Pulse oximetry Body weight Systolic blood pressure Diastolic blood pressure Provider Name and Address Organization Details Last Updated DateTime 4 58 /min 134.62 cm 99.3 [degF] 16 /min 95 % 95 % 905083. 632 g 150 mm[Hg] 73 mm[Hg] Not Available [facility] 4 17:02:13 Social History None recorded. Functional Status None recorded. Mental Status None recorded. Family History Nothing Reported. Medical History No medical history recorded. Gynecological HistoryNo gynecological history recorded. Obstetrics History GPAL:G 0 P 0 0 0 0 Past Encounters Encounter ID Performer Location Encounter Start Date Encounter Closed Date Diagnosis/Indication Diagnosis SNOMED-CT Code Diagnosis ICD10 Code Diagnosis Note [id number] Radha Foster MD [facility] [address] [place] [phone] 12/30/2023 14:10:14 12/31/2023 21:23:21 Cellulitis of lower limb 062399267 L03.119 left lower leg primarily ? starting on right- has percocet 10/325 q 12 hrs- may have otc tylenol 2 x per day in between-da [facility] confirms he has regular Tylenol at homeAdvise d elevation and low-salt diet to help reduce edema. Reinforced low-carb diet but daughters doubt the patient will be compliant. Advise close follow-up with PCP. Doxycyclin e worked in October for cellulitis -will re-prescri be.. Due to open areas will have medic apply bacitracin sparingly then will switch to mupirocin for better staph coverage-a dvised to apply sparingly. [id number] Radha Foster MD [facility] [address] [place] [id number] 02/09/2024 16:16:11 02/10/2024 13:33:55 Cellulitis of lower limb [id number] L03.119 left lower leg primarily, less on right- had percocet 10/325 q 12 hrs- no longer on med list-may have otc tylenol 4 x per day in between-da [facility] confirms he has regular Tylenol at homeAdvise d elevation and low-salt diet to help reduce edema. Reinforced low-carb diet but daughters doubt the patient will be compliant. - Her BS has improved from prior visit Advise close follow-up with PCP. Doxycyclin e worked in October for cellulitis -will re-prescri be.. Due to open areas will have medic apply bacitracin sparingly then will switch to mupirocin for better staph coverage-a dvised to apply sparingly. [id number] Angely Lake MD [facility] [address] [place] [phone] 02/23/2024 15:31:54 02/23/2024 22:21:20 Peripheral vascular disease [id number] I73.9 73 year old female being evaluated for left lower extremity erythema. Patient reports completing a course of antibiotic s without much improvemen t. Has mild pain on that side. Denies fever/chil ls. Exam notable for normal vital signs, no peripheral edema, bilateral anterior erythemato us patches, left much more pronounced than R, no drainage, mildly tender to palpation. Presentati on consistent with peripheral vascular disease with chronic skin changes and superficia l wounds in the process of healing, without sign of active cellulitis present. Has FU with PCP next week where can get additional work up and treatment as indicated. Discussed warning signs to call back for reevaluati on. I have reviewed and agree with the assessment and plan as documented by the refuse and recycling worker. I provided real-time medical direction for this encounter and was immediatel y available to provide additional phone-base d assistance as needed. We discussed the diagnostic uncertaint y of home visits and associated risks. We discussed the need to seek care urgently/e mergently in the setting of any new or worsening symptoms. [id number] Radha Foster MD [facility] [address] [place] [id number] 03/27/2024 11:19:23 03/27/2024 22:47:07 Wound of skin [id number] T14.8XXA Advised to elevate the leg/not use Betadine which can irritate the skin and the same for Dermoplast -to wash with warm soapy water daily rinse well, pat dry with gauze then apply bacitracin topically- dressed with DSD. Advised to elevate to reduce swelling /to finish the doxycyclin e but no further oral antibiotic s clinically indicated at this time. Advised to follow-up with wound clinic as soon as possible. The daughter stated she would call today. Pharmacy verified. Allergies reviewed she is only allergic to codeine. [id number] Len Nguyen MD [facility] [address] [place] [phone] 05/29/2024 17:02:10 05/30/2024 10:24:58 Tinea cruris [id number] B35.6 Urinary symptoms [id number] R39.9 Health Concerns Section Related Observation LastModified by Organization Detai ls LastModified Time None Recorded Concern Status LastModified by Organization Details LastModified Time None Recorded Advance Directives Directive None Recorded Payers Encounter Date Sequence Insurance Name Policy Number Policy Meza Covered Member ID Meza Member ID Guarantor Name 12/30/2023 1 [facility] - DOS ON OR AFTER 2022 - DUAL ELIGIBLE - LONG-TERM OPTIONS AND ONE CARE (MEDICARE REPLACEMENT/ADV ANTAGE - HMO) Mary Loujack Garnero Cisneros [id number] Mary Lou Z Sonido Cisneros 02/09/2024 1 [facility] - DOS ON OR AFTER 2022 - DUAL ELIGIBLE - LONG-TERM OPTIONS AND ONE CARE (MEDICARE REPLACEMENT/ADV ANTAGE - HMO) Mary Loujack Garnero Cisneros [id number] Mary Loujack Garnero Cisneros 02/23/2024 1 [facility] DOS ON OR AFTER 2022 - DUAL ELIGIBLE - LONG-TERM OPTIONS AND ONE CARE (MEDICARE REPLACEMENT/ADV ANTAGE - HMO) Mary Loujack Garnero Cisneros [id number] Mary Lou Garnero Cisneros 03/27/2024 1 [facility] - DOS ON OR AFTER 2022 - DUAL ELIGIBLE - LONG-TERM OPTIONS AND ONE CARE (MEDICARE REPLACEMENT/ADV ANTAGE - HMO) Mary Loujack Garnero Cisneros [id number] Mary Lou Garnero Cisneros 05/29/2024 1 [facility] - DOS ON OR AFTER 2022 - DUAL ELIGIBLE - LONG-TERM OPTIONS AND ONE CARE (MEDICARE REPLACEMENT/ADV ANTAGE - HMO) Mary Lou Garnero Cisneros [id number] Mary Lou Garnero Cisneros Notes Date Note Type Note Provider Name and Address Organization Details Recorded Time 12/30/2023 text/html HPI: Hx: Bilat LE edemaPer Daughter patient with reecurrent issues with lower legs now with Left leg inflammed and red with weeping yellow fluid ................... ................... ................... ................... ................... ................... ................... ........ [facility] Nurse Triage Notes (Agustín Shipley): Comments: HPI reviewed by this RN, no further information needed to process visit -H. Shipley, RN ................... ................... ................... ................... ................... ................... ................... ........ Baseline Information: Baseline Hb: 12.2 g/dL Baseline HCt: 37% Baseline Creatinine: 1.58 mg/dL Institute Scientist POC Test Results from Jerman Anderson [facility] Blood Glucose Measurement (1) [15:13] Blood Glucose: 165 mg/dL ................... ................... ................... ................... ................... ................... ................... ........ Institute Scientist Note From Jerman Anderson: [facility] Hospitalcare visit for female patient with wound on leg. Arrived to home where pt was with 2 daughters and RN from [facility]. Pt Honduran speaking only and daughter translated. Pt reports 2 weeks of left lower leg open wound consistent with cellulitis. Pt had previous infection on right leg back in october treated with doxycyline and healed. Images taken for [facility] review. Pt not reporting any pain with CSMs intact. Chronic lower extremity edema and numerous comorbidities. Blood glucose checked. V/S taken as listed. Pt afebrile. Lung sounds clear. [facility] Dr. Foster ordered 100 mg of doxycycline with remainder of script sent to pharmacy. Leg wound cleaned and bandaged with bacitracin applied. Reviewed red flags for ED. Pt encouraged to follow up with PCP. Patient education provided. ................... ................... ................... ................... ................... ................... ................... ........ Disposition: Fulfilled SEGMD: Patient has a long history of dietary noncompliance/enjoy s eating carbs and will not limit. She denies fever, chills, shortness of breath, nausea vomiting diarrhea. Radha Foster MD [address] [place] [address],[address], [place], [phone], [facility] - [employer] [facility] 12/31/2023 15:30:41 02/09/2024 text/html HPI: PMHx: Varicose veinsCall returned to [facility] to [facility]age below. Reports pt having rash on left lower leg and having fluid filled bumps x 1 week. No fever. Mild itching at site. No open sores or pus. Per daughter pt seen by Kayleen > 2 weeks ago for similar sx. Given rx for abx infection. Pt completed abx and rash returned. No pain at site. Pt daughter advised of dispsotiion, [facility] Reviewed home care advise, ER precautions and reasons to call back. ................... ................... ................... ................... ................... ................... ................... ........ CRC Nurse Triage Notes (Melinda Melvin): Comments: CRC RN did not require any additional information to process this visit. Institute Scientist POC Test Results from Jerman Anderson - [facility] Blood Glucose Measurement (16:42:48) Blood Glucose: 148 mg/dL ................... ................... ................... ................... ................... ................... ................... ........ Institute Scientist Note From Jerman Anderson[facility]. Pt presents conscious and alert. Pt Honduran speaking only so daughter translated. Daughter reports that patient has had cellulitis for some time, having been seen by [facility] about a month ago and prescribed oral and topical antibiotics. Pt missed follow up appointment with PCP, daughter reports patient refused that day. Daughter concerned about cellulitis. V/S taken as listed. Pt afebrile. Image taken of affected leg. Clear to yellow tinged discharged noted on left lower extremity primarily on anterior aspect though there is some on the posterior as well. Blood glucose assessed. Consulted with [facility] Dr. Foster who prescribed additional course of doxycycline and more mupiricin. Family educated on proper wound care. Daughter asked to wait to bandage wounds since she was going to get patient into the shower. ................... ................... ................... ................... ................... ................... ................... ........ Disposition: FulfilledSEGMD: Patient seen in October and improved with doxycycline and mupirocin. I saw the patient on December 30, 2023 with cellulitis and blistering rash on her left greater than right leg. Did improve with the doxycycline and mupirocin but then the patient decided to switch to triple antibiotics and she was using gentamicin cream prescription she had obtained from a family member. Patient is also sleeping in her recliner and not elevating her legs and she is incontinent so the urine runs down and soaks her legs overnight and the daughter is concerned that this is making things worse. Furthermore the patient refuses to bathe and the daughter is having difficulties keeping her clean and the patient has been refusing to go see her PCP in the office. Radha Foster MD [address] [place] [address],[address], [place], [phone], [facility] 02/10/2024 00:01:57 02/23/2024 text/html HPI: Patient has wounds on her lower legs. RN called for a member with DM and lower leg ulcers. He was seen on February 08 and completed the antibiotics, but the wounds do not look any better. Member has an appt on Wednesday , could not get her seen today and placed visit for .Prescribed doxy at [facility] visit ................... ................... ................... ................... ................... ................... ................... ........ CRC Nurse Triage Notes (Nicole Bell): Comments: CRC RN DID NOT NEED FURTHER INFO ................... ................... ................... ................... ................... ................... ................... ........ Institute Scientist Note From Abelardo Castro: Pt daughter concerned for wound/celilitis on legs not healing after antibiotic treatment. Pt denies fever pain edema or wheeping. Baseline vitals assessed. Cellulitis appears to be in healing stages. No bleeding or wheeping. Pictures uploaded. Pt sts has appt with pcp on Wednesday. . [facility] contacted and [facility] spoke with pt and advised to monitor for worsening redness or edema. Pt advised to follow up with pcp. Pt education on signs indicating the ER. ................... ................... ................... ................... ................... ................... ................... ........ Disposition: Fulfilled Angely Lake MD [address] [place] [address],[address], [place], [phone], [facility] 02/23/2024 21:33:16 03/27/2024 text/html CRC Nurse Triage Notes (Rishi Domínguez): Reason For Request: left leg pain Chief Complaints: Pain PMH: Diabetes, Hypertension, COPD/Asthma Other Allergies: NKDA Comments: Sap Data Analyst verified the member's name//address and phone number. Education provided on the response time and the member was advised to monitor reported s/s and seek emergency treatment if needed. VNA RN reports the member is having lower left leg pain - Open wounds - Hx of same - VNA reports wounds are improving - Increased pain. Recently hospitalized for Cellulitis - Wound remains warm to the touch. Denies SOB ................... ................... ................... ................... ................... ................... ................... ........ Institute Scientist Note From Markell Villagomez: Pt? s daughter/CG reports pt was seen at [place] ED last week for cellulitis of the LLE, d/c home with doxy and orders to f/u with the wound clinic. Family has not contacted the wound clinic yet and pt has one day left of doxy. Family has been applying betadine per ED orders. Daughter sts wound appears greatly improved since coming home from the ED. Pt reporting itching to her LLE. Pt denies CP, SOB, pain, f/n/v/d. Pt is alert, NAD. VSS. Afebrile. Non focal. Neuro exam. Lungs CTA. Benign ABD exam. Trace BLE edema and discoloration c/w venous stasis. No open wounds on either extremity, no erythema or warmth. LLE cleaned and bacitracin applied. Family educated on wound care and signs of infection that would indicate the ED. Family instructed to f/u with wound clinic today. ................... ................... ................... ................... ................... ................... ................... ........ Disposition: Fulfilled Radha Foster MD [address] [facility],[address], [place], [phone], [facility] - [facility] 03/27/2024 16:49:56 05/29/2024 text/html HPI: pmhx: UTI, candidiasis of vagina UTI, urine retention.Call returned to [facility] to triage below. Reports having rash on callie area x 1 week. Per daughter no fluid filled spots. Small red pin point spots. Pt also having urinary frequency. Has applied Vaseline to area with mild relief. Per daughter concerned as pt is DM and has been scratching area concerned for infection. Unable to bring pt to WIC at [place] as pt is bed bound. Agrees to [facility] referral. Confirmed address, contact number and allergies. ................... ................... ................... ................... ................... ................... ................... ........ CRC Nurse Triage Notes (Melinda Melvin): Chief Complaints: Rash, UTI/Pyelonephritis PMH: COPD/Asthma, Diabetes, Hypertension, COPD/Asthma Other Allergies: CODIENE Comments: CRC RN did not require any additional information to process this visit. Institute Scientist Organization Information for Jerman Anderson Business Legal Name: [employer] Address: [address] [place] [address], Kennel Aide: Jhon HERNANEDZ No.: [id number] Institute Scientist POC Test Results from Jerman Anderson Blood Glucose Measurement (16:52:17) Blood Glucose: 335 mg/dL Urine Dipstick (16:52:27) Urine leukocytes: + ALVIN Urine nitrites: + NIT Urine urobilinogen: - URO Urine protein: +/- PRO Urine pH: 6.0 pH Urine blood: 50 lesli/ul BLO Urine specific gravity: 1.005 SG Urine ketones: - KET Urine bilirubin: - ROSI Urine glucose: ++++ GLU ................... ................... ................... ................... ................... ................... ................... ........ Institute Scientist Note From Jerman Anderson: [facility] visit for female pt. Pt presents with family and SHAREPOINT ADMINISTRATOR. Pt has reportedly had redness and irritation in her groin for 1 week in addition to high blood sugars. V/S taken as listed. Pt afebrile, though temp seems to be elevated with pt having taken acetaminophen today. SHAREPOINT ADMINISTRATOR changed pt's diaper and redness was noted in addition to smell consistent with possible fungal infection. Obtained urine sample positive for leukocytes and nitrates and blood and glucose. Blood glucose elevated at 335 mg/dL. Family reports difficulty maintaining blood sugar and that pt has not adhered to dietary restrictions. Urine culture obtained. Consulted with [facility] Dr. Nguyen who prescribed clotrimazole and ordered urine culture. Reviewed red flags for ED. Pt education provided. Culture delivered to [facility]. [facility] Lab Orders: culture, urine: Performed ................... ................... ................... ................... ................... ................... ................... ........ Disposition: Fulfilled Len Nguyen MD [address] [place] [address],[address], [place], [phone], [facility] 05/29/2024 22:50:45 OBGyn Episode No OBEpisode recorded.
--- OUTSIDE RECORDS SUMMARY | 2024-09-01 15:45 | XMS_ITS | Encounter Summary ---
Author Organization [employer] Address [address] [place] [address] Care Team Providers Care Composing Machine Operator/Tender Name Role Phone Amanda Watkins MD Primary Care Provide r Hiro Ram Unavailable Unavailable Reason for Visit * Reason Comments Med Refill Encounter Details Date Type Department Care Team (Late st Contact Info) Description 07/05/2024 Refill [facility] MEDICINE [address] [place] [address] Amanda Watkins MD [address] [place] [address] Social History Tobacco Use Types Packs/Day Years [...] Description 09/06/2024 10:00 AM EST Clinical Support [facility] MEDICINE [address] [place] [address] 09/07/2024 2:00 PM EST Telemedicine [facility] MEDICINE [address] [place] [address] Kayley Alanis, PHILLIP 09/14/2024 11:00 AM EST Telemedicine [facility] MEDICINE [address] [place] [address] 10/24/2024 2:00 PM EDT Office Visit [facility] OPTOMETRY [address] [place] [address] Emiliano, Elisa, OD [address] [place] [address] documented as of this encounter Visit Diagnoses Not on filedocumented in this encounter Additional Health Concerns Assessment Noted Time PHQ-9 Depression Total Score: 10 024 3:23 PM EDT documented as of this encounter Care Teams Composing Machine Operator/Tender Relationship Specialty Start Date End Date Amanda Watkins MD [address] [place] [id number] PCP - General Family Medicine 04/07/19 Hiro Ram FNP [address] [place] [address] [place] [address] Nurse Practitioner Family Medicine 07/06/23 [facility] 07/03/22 08/16/24 Ja [facility] 08/10/24 documented as of this encounter
--- OUTSIDE RECORDS SUMMARY | 2024-09-01 15:45 | XMS_ITS | Encounter Summary ---
Author Organization [employer] Address [address] [facility] [address] [place] [address] Care Team Providers Care Data Integrity Analyst Name Role Phone Amanda Watkins MD Primary Care Provide r Hiro Ram Unavailable Unavailable Reason for Visit * Reason Comments Pre-visit Planning (Unable to reach for PVP screening, LVM) Encounter Details Date Type Department Care Team ([facility] st Contact Info) Description 08/10/2024 Patient Outreach [facility] MEDICINE [address] [place] [address] Amanda Watkins MD [address] [place] [address] Pre-visit Planning ((Unable to reach for PVP screening, LVM)) Social History Tobacco Use Types Packs/Day Years Used Date Smoking Tobacco: Never Passive Smoke Exposure: Never Smokeless Tobacco: Never Depression Answer Date Recorded Patient Health Questionnaire-9 Score 10 01/13/2024 Patient Health Questionnaire-9 Score 10 01/13/2024 Last PHQ-9: Questionnaire Data Not on file 0 01/13/2024 Housing Stability Answer Date Recorded What is your housing situation today? I have ramirotom simmons 05/24/[address] you [...] AM EDT documented as of this encounter Progress Notes * Serena Victor - 08/10/2024 9:50 AM EST CC Serena. Placed outbound call to patient to complete pre-visit planning. No answer at this time. Patient name and were not confirmed. CC left voicemail requesting return call. Direct contact information provided. documented in this encounter Plan of Treatment Upcoming Encounters Date Type Department Care Team (Late st Contact Info) Description 09/06/2024 10:00 AM EST Clinical Support [facility] MEDICINE [address] [place] [address] 09/07/2024 2:00 PM EST Telemedicine [facility] MEDICINE [address] [place] [address] Kayley Alanis, PHILLIP 09/14/2024 11:00 AM EST Telemedicine [facility] MEDICINE [address] [place] [address] 10/24/2024 2:00 PM EDT Office Visit [facility] OPTOMETRY [address] [place] [address] Emiliano, Elisa, OD [address] [place] [address] documented as of this encounter Visit Diagnoses Not on filedocumented in this encounter Additional Health Concerns Assessment Noted Time PHQ-9 Depression Total Score: 10 024 3:23 PM EDT documented as of this encounter Care Teams Data Integrity Analyst Relationship Specialty Start Date End Date Amanda Watkins MD [address] [place] [address] PCP - General Family Medicine 04/07/19 Hiro Ram FNP [address] [place] [address] Nurse Practitioner Family Medicine 07/06/23 [facility] 07/03/22 08/16/24 Ja [facility] 08/10/24 documented as of this encounter
--- OUTSIDE RECORDS SUMMARY | 2024-09-01 15:45 | XMS_ITS | Encounter Summary ---
Author Organization [employer] Address [address] [facility] 7t [place] [address] Care Team Providers Care Permastone Installer Name Role Phone Amanda Watkins MD Primary Care Provide r Hiro Ram Unavailable Unavailable Reason for Visit * Reason Onset Date Comments order 07/25/2024 Durable Medical Equipment 07/25/2024 Encounter Details Date Type Department Care Team (Late st Contact Info) Description 07/25/2024 Telephone [facility] MEDICINE [address] [place] [address] Amanda Watkins MD [address] [place] [address] order; Durable Medical Equipment Social History Tobacco Use [...] enough money to get more: Never True 10/ Transportation Answer Date Recorded In the past [...] encounter Miscellaneous Notes * Telephone Encounter - Heather Cain RN - 08/04/2024 1:39 PM EST DME rx for incontinence refaxed with dx written out. * Telephone Encounter - Radha Stevenson - 07/25/2024 9:03 AM EST Tc from [facility] with home care delivered informing order was incomplete as they needed to add type of incontinence and re-fax order. [facility]- [phone] documented in this encounter Plan of Treatment Upcoming Encounters Date Type Department Care Team (Late st Contact Info) Description 09/06/2024 10:00 AM EST Clinical Support [facility] MEDICINE [address] [place] [address] 09/07/2024 2:00 PM EST Telemedicine [facility] MEDIC[facility] [address] [place] [address] Kayley Alanis, PHILLIP 09/14/2024 11:00 AM EST Telemedicine [facility] [address] [place] [address] 10/24/2024 2:00 PM EDT Office Visit [facility] OPTOMETRY [address] [place] [address] Elisa Cummings, OD [address] [place] [address] documented as of this encounter Visit Diagnoses Not on filedocumented in this encounter Additional Health Concerns Assessment Noted Time PHQ-9 Depression Total Score: 10 024 3:23 PM EDT documented as of this encounter Care Teams Permastone Installer Relationship Specialty Start Date End Date Amanda Watkins MD [address] [place] [address] PCP - General Family Medicine 04/07/19 Hiro Ram FNP [address] [place] [address] Nurse Practitioner Family Medicine 07/06/23 [facility] 07/03/22 08/16/24 documented as of this encounter
--- OUTSIDE RECORDS SUMMARY | 2024-09-01 15:45 | XMS_ITS | Encounter Summary ---
Author Organization [employer] Address [address] [facility] [address] [place] [address] Care Team Providers Care Waxer Tender Name Role Phone Amanda Watkins MD Primary Care Provide r Hiro Ram Unavailable Unavailable Reason for Visit * Reason Onset Date Comments Med Refill 08/10/2024 Encounter Details Date Type Department Care Team (Late st Contact Info) Description 08/10/2024 Refill [facility] MEDICINE [address] [place] [address] Vilma Gilbert, PharmD [address] [place] [address] Social History Tobacco Use Types Packs/Day Years [...] encounter Miscellaneous Notes * Telephone Encounter - Vilma Gilbert PharmD - 08/10/2024 9:40 AM EST Patient looking to start medboxes, and the following refills are required. Thank you! -Please note amlodipine 5 mg and torsemide 20 mg were initiated at [facility] [place] from [facility]20[facility]24. Refills were requested from HDF provider, however patient no- showed HDF appointment, and is now out of medications. documented in this encounter Plan of Treatment Upcoming Encounters Date Type Department Care Team (Late st Contact Info) Description 09/06/2024 10:00 AM EST Clinical Support [facility] MEDICINE [address] [place] [address] 09/07/2024 2:00 PM EST Telemedicine [facility] MEDICINE [address] [place] [address] Kayley Alanis, PHILLIP 09/14/2024 11:00 AM EST Telemedicine [facility] MEDICINE [address] [place] [address] 10/24/2024 2:00 PM EDT Office Visit [facility] OPTOMETRY [address] [place] [address] Elisa Cummings, OD [address] [place] [address] documented as of this encounter Visit Diagnoses Not on filedocumented in this encounter Additional Health Concerns Assessment Noted Time PHQ-9 Depression Total Score: 10 024 3:23 PM EDT documented as of this encounter Care Teams Waxer Tender Relationship Specialty Start Date End Date Amanda Watkins MD [address] [place], [place] [phone] PCP - General Family Medicine 04/07/19 Hiro Ram FNP [address] [place] [address] Nurse Practitioner Family Medicine 07/06/23 [facility] 07/03/22 08/16/24 Ja [facility] 08/10/24 documented as of this encounter
--- OUTSIDE RECORDS SUMMARY | 2024-09-01 15:45 | XMS_ITS | Encounter Summary ---
Author Organization [employer] Address [address] [facility] [address] [place] [address] Care Team Providers Care Tick Sewer Name Role Phone Amanda Watkins MD Primary Care Provide r Hiro Ram Unavailable Unavailable Reason for Visit * Reason Comments Med Refill Encounter Details Date Type Department Care Team (Late st Contact Info) Description 11/18/2023 Refill [facility] MEDICINE [address] [place] [address] Hiro Ram FNP Social History Tobacco Use Types Packs/Day Years Used Date Smoking Tobacco: Never Passive Smoke Exposure: Never Smokeless Tobacco: Never Depression Answer Date Recorded Patient Health Questionnaire-9 Score 8 07/19/2023 Patient Health Questionnaire-9 Score 8 07/19/2023 Last PHQ-9: Questionnaire Data Not on file 1 09/19/2022 Housing Stability Answer Date Recorded What is [...] Answer Date Recorded Patient Health Questionnaire-2 Score 4 07/19/2023 Comments Unknown Sex and Gender Information Value [...] Description 09/06/2024 10:00 AM EST Clinical Support [facility] MEDICINE [address] [place] [address] 09/07/2024 2:00 PM EST Telemedicine [address] [address] Kayley Alanis RN 09/14/2024 11:00 AM EST Telemedicine [facility] MEDICINE [address] [place] [address] 10/24/2024 2:00 PM EDT Office Visit [facility] OPTOMETRY [address] [place] [address] Elisa Cummings, OD [address] [place] [address] documented as of this encounter Visit Diagnoses Not on filedocumented in this encounter Additional Health Concerns Assessment Noted Time PHQ-9 Depression Total Score: 8 07/19/20 23 11:34 AM EST documented as of this encounter Care Teams Tick Sewer Relationship Specialty Start Date End Date Amanda Watkins MD [address] [place] [address] PCP - General Family Medicine 04/07/19 Hiro Ram FNP [address] [place] [address] Nurse Practitioner Family Medicine 07/06/23 [facility] 07/03/22 08/16/24 Ja [facility] 08/10/24 documented as of this encounter
--- OUTSIDE RECORDS SUMMARY | 2024-09-01 15:45 | XMS_ITS | Encounter Summary ---
Author Organization [employer] Address [address] [facility] 7t [place] [address] Care Team Providers Care Battery Charger Name Role Phone Amanda Watkins MD Primary Care Provide r Hiro Ram Unavailable Unavailable Reason for Visit * Reason Onset Date Comments CGM reader PA 08/15/2024 Encounter Details Date Type Department Care Team (Late st Contact Info) Description 08/15/2024 Refill [facility] [address] [place] [address] Dennis Natarajan, PHILLIP [address] [place] [address] Type 2 diabetes mellitus with other specified complication, with long-term current use of insulin ([facility]) Social History Tobacco Use Types Packs/Day Years [...] encounter Miscellaneous Notes * Telephone Encounter - Dennis Natarajan RN - 08/22/2024 2:35 PM EST RN has updated CGM PA request with new start date for today d/t new RX being sent today and re-faxed to [phone]. Confirmation page received. * Addendum Note - Dennis Natarajan RN - 08/22/2024 12:19 PM ESTAddended by: DENNIS NATARAJAN on: 08/22/2024 12:19 PM Modules accepted: Orders * Telephone Encounter - Dennis Natarajan RN - 08/22/2024 12:17 PM EST RN received notice from [facility] that start date of CGM reader needs to be within 6 months. Last RX sentfor reader is dated 10/25/23. Please send new RX for CGM reader in order for RN to re-submit PA. Thank you! * Telephone Encounter - Dennis Natarajan RN - 08/17/2024 11:25 AM EST Continuous Glucose Monitor Prior Authorization Documentation: CGM PA initiated for: Freestyle Mickey [employer] Insurance: [employer] PA form completed and faxed to [phone]. Patient's preferred pharmacy: [facility] - [place], [place] - [address] [facility] [id number] CGM PA should be approved by: 08/31/2024 Mary Lou Cisneros will be scheduled with red team nurses for CGM placement/teaching once PA is approved. * Telephone Encounter - Dennis Natarajan RN - 08/17/2024 11:15 AM EST Incoming call from [employer] in the pharmacy who reports he called [employer] in regards to CGM reader PA not processing on pharmacy end despite approval notice. [employer] reports [employer] informed him they are unable to obtain any information with the approval number regarding this patient. [facility] recommended a new PA be completed. RN will complete a new PA for CGM reader. * Telephone Encounter - Dennis Natarajan RN - 08/15/2024 3:45 PM EST RN received PA request for CGM reader. Upon chart review, CGM for reader was completed and RN was informed PA was approved and CGM reader, sensor and sen test strips were all processing on (Roxannkristal called to schedule CGM teaching appointment however RN was unable to get in contact with patient). RN called [facility] pharmacy to further clarify. RN was informed the CGM sensors and the sen test strips are working and not requesting a PA however the CGM reader is requesting a PA. RN reviewed mediamanager and approval notice dated 07/25/24 in chart for sen test strips and reader. RN spoke to Justus at [facility] pharmacy who reports he is unsure why PA is not working for reader but is working for sen te st strips and sensors despite approval for reader and sensors being on the same approval notice. [employer] is unsure if it is due to insurance change d/t beginning of year and [facility] benefit change. Just[employer] agrees to call [facility] to further inquire and will update this clinical writer. RN has faxed approval notice to [facility] pharmacy for Justus at [phone]. Confirmation page received. documented in this encounter Plan of Treatment Upcoming Encounters Date Type Department Care Team (Late st Contact Info) Description 09/06/2024 10:00 AM EST Clinical Support [facility] [address] [place] [address] 09/07/2024 2:00 PM EST Telemedicine [address] [address] Kayley Alanis RN 09/14/2024 11:00 AM EST Telemedicine [address] [address] 10/24/2024 2:00 PM EDT Office Visit [facility] [address] [place] [address] Elisa Cummings, OD [address] [place] [address] documented as of this encounter Visit Diagnoses Diagnosis Type 2 diabetes mellitus with other specified complication, with long-term current use of insulin ([facility]) documented in this encounter Additional Health Concerns Assessment Noted Time PHQ-9 Depression Total Score: 10 024 3:23 PM EDT documented as of this encounter Care Teams Battery Charger Relationship Specialty Start Date End Date Amanda Watkins MD [address] [place] [address] PCP - General Family Medicine 04/07/19 Hiro Ram FNP [address] [place] [address] Nurse Practitioner Family Medicine 07/06/23 [facility] 07/03/22 08/16/24 [facility] 08/10/24 documented as of this encounter
--- OUTSIDE RECORDS SUMMARY | 2024-09-01 15:45 | XMS_ITS | Encounter Summary ---
Author Organization [facility] [employer] Address [address] [facility] 7t [place] [address] Care Team Providers Care Test And Turn Up Technician Name Role Phone Amanda Watkins MD Primary Care Provide r Hiro Ram Unavailable Unavailable Reason for Visit * Reason Onset Date Comments r/s VEGETABLE VENDOR 06/14/2023 Encounter Details Date Type Department Care Team (Late st Contact Info) Description 06/14/2023 Telephone [facility] [address] [place] [address] Amanda Watkins MD [address] [place] [address] r/s VEGETABLE VENDOR Social History Tobacco Use Types Packs/Day Years [...] encounter Miscellaneous Notes * Telephone Encounter - Nisha Tobin - 06/14/2023 11:55 AM EST Tc from pt requesting to r/s VEGETABLE VENDOR RN appt scheduled for 06/14/23 , Appt has been cancelled. States they do not feel good and medications on in a lockbox. Please contact at [phone] documented in this encounter Plan of Treatment Upcoming Encounters Date Type Department Care Team (Late st Contact Info) Description 09/06/2024 10:00 AM EST Clinical Support [facility] [address] [place] [address] 09/07/2024 2:00 PM EST Telemedicine [facility] [address] [place] [address] Kayley Alanis, PHILLIP 09/14/2024 11:00 AM EST Telemedicine [facility] [address] [place] [address] 10/24/2024 2:00 PM EDT Office Visit [facility] [address] [place] [address] Emiliano, Elisa, OD [address] [place] [address] documented as of this encounter Visit Diagnoses Not on filedocumented in this encounter Additional Health Concerns Assessment Noted Time PHQ-9 Depression Total Score: 11 023 2:19 PM EDT documented as of this encounter Care Teams Test And Turn Up Technician Relationship Specialty Start Date End Date Amanda Watkins MD [address] [place] [address] PCP - General Family Medicine 04/07/19 Hiro Ram FNP [address] [place] [address] Nurse Practitioner Family Medicine 07/06/23 [facility] 07/03/22 08/16/24 Ja [facility] 08/10/24 documented as of this encounter
--- OUTSIDE RECORDS SUMMARY | 2024-09-01 15:45 | XMS_ITS | Encounter Summary ---
Author Organization [employer] Address [address] [facility] 7t [place] [address] Care Team Providers Care Flight Engineer Manager Name Role Phone Amanda Watkins MD Primary Care Provide r Hiro Ram Unavailable Unavailable Encounter Details Date Type Department Care Team (Late st Contact Info) Description 08/10/2024 10:00 AM EST Telemedicine [facility] [address] [place] [address] Vilma Gilbert, PharmD [address] [place] [address] Type 2 diabetes mellitus with hyperglycemia, with long-term current use of insulin (CMS/HCC) (Primary Dx); Essential (primary) hypertension; Stage 3b chronic kidney disease (CMS/HCC) Social History Tobacco Use Types Packs/Day Years [...] as of this encounter Progress Notes * Vilma Gilbert PharmD - 08/10/2024 9:00 AM EST Pharmacy Consult Visit Type: MTM Visit Pharmacist: Vilma Gilbert PharmD Referral Diagnosis: NO REFERRAL Pharmacy Recommendations for Provider: Please consider completing PA form for [email or web address] Mickey 2 Alpine (PA form faxed by pharmacy 08/11/24) Note - Freestyle Mickey 2 Sensors are approved as of 08/11/24 Begin medboxes per patient request. Please contact medbox pharmacist with any medication changes (initiations, discontinuation, dose adjustments). Per patient request, please consider administration of eligible vaccines (Shingrix and RSV) at upcoming PCP visit on 08/16/24. Background/ Visit Intake Mary Lou Cisneros is a 74 y.o. patient here for a new patient visit. Visit completed over the phone with their daughter Nai. Allergies: is allergic to codeine. Preferred Pharmacy: [facility] [address] [facility] [address] [facility] [address] Medbox: To begin during today's appointment. Assessment & Plan Adherence: History: Medication Reconciliation: Reports use of the following medications that are not currently active in [facility] medlist: Nystatin 100,000 U/g powder topically twice daily (LF 06/20/24 at [facility] pharmacy) Denies use of the following medications [facility] Santyl ointment (LF 04/21/24) Triamcinolone acetonide cream (LF 03/06/24) OTC medication, vitamin, supplement use: denies Adherence: Medication Organization: Uses weekly pill box for organization and takes from vials Patient used to have VNA services, where their nurse organized medications for the patient into weekly pill boxes for administration. However, patient is no longer receiving VNA services and has since been taking medications from vials. Patient has been without VNA services for a couple weeks now. Patient's daughter will now be helping out with medication organization and administration. Missed doses: Denies missed doses Dispense history may suggest gaps in adherence, however patient denies missed dosing when they had their visiting nurse. Of note - duloxetine 20 mg last filled 04/13/24 x 30 day supply. Pharmacist spoke to prescriber (OSITO Goetz) about refills, in which refill request is denied until patient makes an appointment with this provider. Read/Write: Yes, in Czech Reports interest in [facility] medbox program Patient used [facility] medbox program in the past, however they stopped with the program when they had VNA services, as their nurse had their own medication organization routine. Patient and family are now interested in [facility] medbox program again, as the patient and their family will now be responsible for patient's medications. Goals of therapy: Improve adherence & minimize missed doses (<2 missed doses/week) Recommendations/Monitoring: Begin medboxes per patient request. Please contact medbox pharmacist with any medication changes (initiations, discontinuation, dose adjustments). Refill requests for amlodipine 5 mg and torsemide 20 mg sent to PCP for inclusion in the medbox. Patient was initiated on these medications from a hospitalization at [facility] and discharged on 06/20/24. Per pre-visit HDF note for this hospitalization, refills of these medications requested from HDF provider, however patient no-showed HDF appointment. Patient has now been without these medications. Patient given number to contact prescriber OSITO Goetz to schedule an appointment in order to obtain refills of duloxetine. Patient agreeable to plan. Pharmacy updated medlist in Epic to match patients current medication use Diabetes Pharmacologic Therapy: Farxiga 10 mg once daily Prescribed by [facility] nephrology Lantus 60 units once daily Patient reports use of 65 units once daily History: Previous T2DM treatment history includes: metformin, Trulicity, glipizide Metformin and glipizide discontinued at 03/21/24 hospital discharge Trulicity discontinued due to events of hypoglycemia (LF 01/21/24 x 28ds) SMBG: Patient reports testing 2 times per day. Patient does not have SMBG log or meter in front of them. They report their last BG reading that they remember was 448 mg/dL a couple days ago . They endorse that they do not have numbers to report, as results commonly return as HIGH Reports symptoms of blurry vision, fatigue, and nausea sometimes Patient denies experiencing these symptoms at the time of the call. Patient recently went to [facility] ED on 08/07/24 for HIGH BG readings. Workup negative for DKA. Patient treated for UTI. No changes made to chronic medication regimen. Note - patient has history of incontinence at baseline Lab monitoring: Lab Results Component Value Date K 5.0 07/06/2024 NA 134 (L) 07/06/2024 CREATININE 2.41 (H) 07/06/2024 EGFR 20 07/06/2024 HGBA1C 7.2 (A) 03/06/2024 HGBA1C 6.5 (A) 09/22/2023 HGBA1C 6.8 (A) 06/22/2023 Additional recommendations per ADA: On ACEI/ARB: No On Aspirin: Yes On Statin: Yes Eye exam scheduled for 10/24/24 at [facility]. Goals of therapy: Per the ADA Standards of Medical Care in Diabetes - 2023 Achieve A1c of <8% while also minimizing episodes of hypoBG (<70 mg/dL) Age >65 yr with comorbidities (CHF, HTN, CKD, depression, incontinence, ADL impairment) Plan: See CKD section for recommendations regarding use of Farxiga. Patient due for updated A1c. Pharmacist ordered A1c labwork per standing order to further assess BGcontrol. Last A1c was 7.2% as of 03/06/2024, however per patient reported SMBG their BG levels usually returnas HI and last reported at 448 mg/dL. Plan to revisit options for optimization of treatment regimen upon return of updated A1c. If A1c above goal, may consider dose increase of Lantus or re-trial of GLP-1 agonist therapy (renal/CV benefits) Patient has prescriptions for Freestyle Mickey CGM monitoring system on file at preferred pharmacy (PA approved for sensors, however PA pending for reader) Sensors were not filled due to pending appointment for CGM teach with team nurse (not actively scheduled) Please consider completing PA form for Freestyle Mickey 2 Alpine (PA form faxed by pharmacy 08/11/24) Note - Freestyle Mickey 2 Sensors are approved as of 08/11/24 Education: Healthy diet and lifestyle including diabetes plate method. Discussed role of A1c monitoring, A1c and SMBG goals Reviewed risks of macrovascular and microvascular complications of uncontrolled T2DM Reviewed signs, symptoms and treatments of hypoglycemia to which patient confirmed understanding. Reviewed signs, symptoms and ED protocols for hyperglycemia and related complications (such as DKA), to which patient confirmed understanding. Cardiovascular (HTN, HLD, Afib, CHF, coronary atherosclerosis): Pharmacologic Therapy: Amlodipine 5 mg once daily Torsemide 20 mg once daily Amiodarone 200 mg once daily Metoprolol succinate 50 mg once daily Aspirin 81 mg once daily Eliquis 5 mg twice daily Atorvastatin 80 mg once daily History: Patient reports having a BP monitor at home, however denies use. Pertinent negatives include chest pain, head ache, blurry vision. Recently hospitalized at [facility] and discharged 06/20/24 for treatment of CHF exacerbation. At discharge, amlodipine was decreased from 10 mg to 5 mg once daily and torsemide 20 mg was initiated. Underwent cardioversion 06/2023 into sinus rhythm. Follows with [facility] cardiology (OSITO Stovall): last visit 11/18/2023 Recent Blood Pressure values: BP Readings from Last 4 Encounters: 05/02/24 113/65 03/06/24 136/66 02/28/24 124/64 12/06/23 (!) 134/96 Pulse Readings from Last 4 Encounters: 05/02/24 50 03/06/24 63 02/28/24 68 12/06/23 60 Lab monitoring Lab Results Component Value Date NA 134 (L) 07/06/2024 K 5.0 07/06/2024 CREATININE 2.41 (H) 07/06/2024 EGFR 20 07/06/2024 CHOL 134 08/04/2021 LDL 71 08/04/2021 HDL 33 08/04/2021 TG 209 08/04/2021 ALT 11 01/06/2024 AST 19 01/06/2024 Goals of Therapy Per JNC 8: Achieve & maintain BP <140/90mmHg Per ACC/AHA 2018 Cholesterol Guidelines: Ensure evidence based and safe use of medications for secondary prevention of ASCVD. Plan: Patient encouraged to SMBP at least once daily and log results. Patient reported understanding. Upon review of SMBP, if above goal at >140/90 mmHg, please consider dose increase of amlodipine from 5 mg to 10 mg for additional blood pressure lowering effect. Patient due for annual FLP. Pharmacist ordered via standing order. Per ACC/AHA 2018 guidelines, in patients with history of ASCVD and with LDL >70 mg/dL, it is indicated to add additional agents to maximum statin therapy. If updated LDL returns as >70 mg/dL, please consider initiation of ezetimibe 10 mg once daily. Education: Counseling provided to SMBP & log results for review in follow up. Reviewed BP goals, patient instructed to call office if extremes of BP are noted prior to follow up. Chronic Kidney Disease (stage 4 (eGFR 15-29)) Pharmacologic Therapy: Farxiga 10 mg once daily History Patient follows with [facility] nephrology (Dr. Ibarra) Last visit on 03/29/2024: Plan to continue Farxiga. Patient has history of urinary incontinence. (Patient currently does not have VNA services to help with changes) Patient recently treated for UTI on 08/07/24 Per patient reported history, blood glucose readings are HIGH , with last reported 448 mg/dL Patient historically on losartan, however was discontinued at [facility] discharge on 03/21/24 due to experiencing MARK. Labs monitoring: Lab Results Component Value Date EGFR 20 07/06/2024 EGFR 41 01/06/2024 EGFR 32 10/25/2023 CREATININE 2.20 08/07/2024 (per [facility] discharge paperwork) CREATININE 2.41 (H) 07/06/2024 CREATININE 1.27 01/06/2024 CREATININE 1.58 (H) 10/25/2023 CrCl (AdjBW) = 25.6 mL/min on 08/07/24 Goals of Therapy: Ensure safe & appropriate medication use in the setting of declining renal function. Plan: Please consider formal discontinuation of Farxiga, as patient is prone to CARLA of UTI due to incontinence at baseline and patient-reported history of BG readings elevated >400 mg/dL. Consider risk vs benefit: Risk of intolerance/ADEs related to SGLT2 inhibitor use in elevated BG (updated A1c pending) vs. Benefit of renal/CV protection and additional glycemic control. Alternatively, may consider re-trial of low dose ACEi/ARB for renal benefits. However, risk vs benefit to be considered as Scr is consistently elevated. Recommendation relayed to prescriber (Dr. Ibarra of [facility]) Per discussion with chief business officer, Farxiga is to be discontinued at this time (as of 08/15/24). Prescriber's plan is to hold off on alternative agents at this time until their next appointment. Pharmacist reviewed current medications for renal dose adjustments, none required at this time. Thefollowing are to be considered, per recommendations from Clinical Pharmacology Duloxetine: to be avoided if CrCl <30 mL/min. Patient not actively taking this medication (LF 04/13/24 x 30ds) and unsure if patient is to continueon this medication, pending follow-up appointment with prescriber (not yet scheduled) Urine microalbumin actively ordered in EHR, needs collection. Patient encouraged to complete outstanding lab work. Immunizations History: Immunization History Administered Date(s) Administered Hep B, adult 03/12/2006, 11/01/2006, 06/07/2007 Influenza injectable quadrivalent IIV4 with preservative 05/07/2015, 08/17/2016, 09/30/2017 Influenza injectable quadrivalent preservative free 07/08/2018 Influenza, Split (incl. purified surface antigen) 05/11/2012 MMR 03/12/2006 Moderna Covid-19 Vaccine 12+ 10/03/2020, 12/11/2020, 07/24/2021 Pneumococcal Conjugate PCV 13 07/16/2016 Pneumococcal Conjugate PCV 20 12/06/2023 Pneumococcal Polysaccharide PPSV23 01/29/2006, 02/17/2013 TD (adult), 2 Lf tetanus toxoid, preservative free, adsorbed 03/12/2006 Zoster, live 05/31/2015 Goals of therapy: Ensure patient is up to date per the CDC Adult Immunization Schedule. Assessment/Plan: Influenza 7541-5280 vaccine: Up-to-date . Next dose due annually. COVID-19 [id number] vaccine: Due . Next dose due annually. Hepatitis B series (Age 60+ with risk factors): Up-to-date . Pneumococcal vaccines (Age >65): Up-to-date Shingrix series (age > 50 ): Due RSV vaccine (Age 75+): Due Td/TDaP (within the past 10 years): Due . Next dose due every 10 years. Plan: Patient is interested in Shingrix and RSV vaccines at this time, however denied wanting to make an appointment due to issues with transportation. Per patient request, please consider administration of eligible vaccines (Shingrix and RSV) at upcoming PCP visit on 08/16/24. Education: Indication of all recommended/administered vaccines Patient Action Plan Reviewed today with plan to revisit at follow up in 1 months: 09/14/24 epic cupid analyst medboxes from the pharmacy on 08/15/24 Monitor blood sugar and blood pressure as directed Receive all recommended vaccinations Attend upcoming appointment with PCP on 08/16/24 documented in this encounter Miscellaneous Notes * Addendum Note - Vilma Gilbert PharmD - 08/10/2024 10:00 AM ESTAddended by: VILMA GILBERT on: 08/15/2024 10:01 AM Modules accepted: Orders documented in this encounter Plan of Treatment Upcoming Encounters Date Type Department Care Team (Late st Contact Info) Description 09/06/2024 10:00 AM EST Clinical Support [facility] [address] [place] [address] 09/07/2024 2:00 PM EST Telemedicine [facility] [address] [place] [address] Kayley Alanis RN 09/14/2024 11:00 AM EST Telemedicine [facility] [address] [place] [address] 10/24/2024 2:00 PM EDT Office Visit [facility] [address] [place] [address] Elisa Cummings, OD [address] [place] [address] Scheduled Orders Name Type Priority Associated Diagnoses Orde r Schedule Lipid Panel, Standard Lab Routine Type 2 diabetes mellitus with hyperglycemia, with long-term current use of insulin ([facility]) Expected: 08/11/2024 (Approximate), Expires: 08/10/2025 Hemoglobin A1c Lab Routine Type 2 diabetes mellitus with hyperglycemia, with long-term current use of insulin ([facility]) Expected: 08/11/2024 (Approximate), Expires: 08/10/2025 documented as of this encounter Visit Diagnoses Diagnosis Type 2 diabetes mellitus with hyperglycemia, with long-term current use of insulin ([facility])- Primary Essential (primary) hypertension Unspecified essential hypertension Stage 3b chronic kidney disease ([facility]) documented in this encounter Additional Health Concerns Assessment Noted Time PHQ-9 Depression Total Score: 10 024 3:23 PM EDT documented as of this encounter Care Teams Flight Engineer Manager Relationship Specialty Start Date End Date Amanda Watkins MD [address] [place] [address] PCP - General Family Medicine 04/07/19 Hiro Ram FNP [address] [place] [address] CORINNE Peres [address] Nurse Practitioner Family Medicine 07/06/23 [facility] 07/03/22 08/16/24 Ja [facility] 08/10/24 documented as of this encounter
--- OUTSIDE RECORDS SUMMARY | 2024-09-01 15:45 | XMS_ITS | Encounter Summary ---
Author Organization [employer] Address 75 [facility] 7t [place] [address] Care Team Providers Care Operator Specialist Communications Name Role Phone Amanda Watkins MD Primary Care Provide r Hiro Ram Unavailable Unavailable Reason for Visit * Reason Onset Date Comments Prior Authorization 08/03/2024 CGM approval Encounter Details Date Type Department Care Team (Late st Contact Info) Description 08/03/[address] [facility] [address] [place] [address] Heather Cain, PHILLIP [address] [place] [address] Prior Authorization (CGM approval) Social History Tobacco Use Types Packs/Day Years [...] encounter Miscellaneous Notes * Telephone Encounter - Temitope Natarajan RN - 08/03/2024 9:39 AM EST Noted, RN is aware. RN attempted to contact patient for CGM teaching appointment. * Telephone Encounter - Heather Cain RN - 08/03/2024 9:29 AM EST PA for CGM Approved. Approval to be scanned into chart in media documented in this encounter Plan of Treatment Upcoming Encounters Date Type Department Care Team (Late st Contact Info) Description 09/06/2024 10:00 AM EST Clinical [address] [facility] [address] [place] [address] 09/07/2024 2:[address] [facility] [address] [place] [address] Kayley Alanis, PHILLIP 09/14/2024 11:[address] [facility] [address] [place] [address] 10/24/2024 2:00 PM EDT Office Visit [facility] [address] [place] [address] Elisa Cummings, OD [address] [place] [address] documented as of this encounter Visit Diagnoses Not on filedocumented in this encounter Additional Health Concerns Assessment Noted Time PHQ-9 Depression Total Score: 10 024 3:23 PM EDT documented as of this encounter Care Teams Operator Specialist Communications Relationship Specialty Start Date End Date Amanda Watkins MD [address] [place] [address] PCP - General Family Medicine 04/07/19 Hiro Ram FNP [address] [place] [address] Nurse Practitioner Family Medicine 07/06/23 [facility] 07/03/22 08/16/24 documented as of this encounter
--- OUTSIDE RECORDS SUMMARY | 2024-09-01 15:45 | XMS_ITS | Encounter Summary ---
Author Organization [employer] Address 75 [facility] 7t [place] [address] Care Team Providers Care Investment Banking Manager Name Role Phone Amanda Watkins MD Primary Care Provide r Hiro Ram Unavailable Unavailable Reason for Visit * Reason Onset Date Comments Call Back Request 08/04/2024 Encounter Details Date Type Department Care Team ([facility] st Contact Info) Description 08/04/2024 Telephone [facility] [address] [place] [address] Amanda Watkins MD [address] [place] [address] Call Back Request Social History Tobacco Use Types Packs/Day Years [...] encounter Miscellaneous Notes * Telephone Encounter - Margie Sánchez - 08/17/2024 4:30 PM EST Issue with form has been resolved. Form is uploaded in Media * Telephone Encounter - Sky Sánchez - 08/04/2024 9:09 AM EST Tc from Kayley with [facility] was transferred back from HIM and is requesting call back to discuss DME documents that were sent over for wound care supplies and incontinence supplies. Please contact Kayley at [phone]. documented in this encounter Plan of Treatment Upcoming Encounters Date Type Department Care Team (Late st Contact Info) Description 09/06/2024 10:00 AM EST Clinical Support [facility] [address] [place] [address] 09/07/2024 2:00 PM EST Telemedicine [facility] [address] [place] [address] Kayley Alanis RN 09/14/2024 11:00 AM EST Telemedicine [facility] [address] [place] [address] 10/24/2024 2:00 PM EDT Office Visit [facility] [address] [place] [address] EmilianoElisa, OD [address] [place] [address] documented as of this encounter Visit Diagnoses Not on filedocumented in this encounter Additional Health Concerns Assessment Noted Time PHQ-9 Depression Total Score: 10 024 3:23 PM EDT documented as of this encounter Care Teams Investment Banking Manager Relationship Specialty Start Date End Date Amanda Watkins MD [address] [place] [address] PCP - General Family Medicine 04/07/19 Hiro Ram FNP [address] [place] [address] Nurse Practitioner Family Medicine 07/06/23 [facility] 07/03/22 08/16/24 Ja [facility] 08/10/24 documented as of this encounter
--- OUTSIDE RECORDS SUMMARY | 2024-09-01 15:45 | XMS_ITS | Encounter Summary ---
Author Organization [employer] Address 75 [facility] 7t [place] [address] Care Team Providers Care Property Assessment Monitor Name Role Phone Amanda Watkins MD Primary Care Provide r Hiro Ram Unavailable Unavailable Reason for Visit * Reason Comments Med Refill Encounter Details Date Type Department Care Team (Late st Contact Info) Description 08/08/2024 Refill [facility] [address] [place], [place] [phone] Amanda Watkins MD [address] [place] [address] Chronic bilateral low back pain with bilateral sciatica Social History Tobacco Use Types Packs/Day Years [...] 09/06/2024 10:00 AM EST Clinical Support [facility] [address] [place] [address] 09/07/2024 2:00 PM EST Telemedicine [facility] [address] [place] [address] Kayley Alanis, PHILLIP 09/14/2024 11:00 AM EST Telemedicine [facility] [address] [place] [address] 10/24/2024 2:00 PM EDT Office Visit [facility] [address] [place] [address] Emiliano, Elisa, OD [address] [place] [address] documented as of this encounter Visit Diagnoses Diagnosis Chronic bilateral low back pain with bilateral sciatica documented in this encounter Additional Health Concerns Assessment Noted Time PHQ-9 Depression Total Score: 10 024 3:23 PM EDT documented as of this encounter Care Teams Property Assessment Monitor Relationship Specialty Start Date End Date Amanda Watkins MD [address] [place] [address] PCP - General Family Medicine 04/07/19 Hiro Ram FNP [address] [place] [address] Nurse Practitioner Family Medicine 07/06/23 [facility] 07/03/22 08/16/24 documented as of this encounter
--- OUTSIDE RECORDS SUMMARY | 2024-09-01 15:45 | XMS_ITS | Encounter Summary ---
Author Organization [employer] Address 75 [facility] 7t [place] [address] Care Team Providers Care Character Actress Name Role Phone Amanda Watkins MD Primary Care Provide r Hiro Ram Unavailable Unavailable Reason for Visit * Reason Onset Date Comments Durable Medical Equipment 08/03/2024 Encounter Details Date Type Department Care Team (Late st Contact Info) Description 08/03/2024 Telephone [facility] [address] [place] [address] Arcelia Crocker MA Durable Medical Equipment Social History Tobacco Use [...] encounter Miscellaneous Notes * Telephone Encounter - Arcelia Crocker MA - 08/03/2024 3:44 PM EST DME- Diapers and pads sign by provider , scanned into the patient's and fax to [facility] on 08/03/2024. documented in this encounter Plan of Treatment Upcoming Encounters Date Type Department Care Team (Late st Contact Info) Description 09/06/2024 10:00 AM EST Clinical Support [facility] [address] [place] [address] 09/07/2024 2:00 PM EST Telemedicine [facility] [address] [place] [address] Kayley Alanis RN 09/14/2024 11:00 AM EST Telemedicine [facility] [address] [place] [address] 10/24/2024 2:00 PM EDT Office Visit [facility] [address] [place] [address] Elisa Cummings, OD [address] [place] [address] documented as of this encounter Visit Diagnoses Not on filedocumented in this encounter Additional Health Concerns Assessment Noted Time PHQ-9 Depression Total Score: 10 024 3:23 PM EDT documented as of this encounter Care Teams Character Actress Relationship Specialty Start Date End Date Amanda Watkins MD [address] [place] [address] PCP - General Family Medicine 04/07/19 Hiro Ram FNP [address] [place] [address] Nurse Practitioner Family Medicine 07/06/23 [facility] 07/03/22 08/16/24 documented as of this encounter
--- OUTSIDE RECORDS SUMMARY | 2024-09-01 15:45 | XMS_ITS | Encounter Summary ---
Author Organization [employer] Address 75 [facility] 7t [place] [address] Care Team Providers Care Attenuator Name Role Phone Amanda Watkins MD Primary Care Provide r Hiro Ram Unavailable Unavailable Encounter Details Date Type Department Care Team (Late st Contact Info) Description 08/02/2024 Orders Only GENERIC EXTERNAL DATA DEPARTMENT Provider, Generic External Data Social History Tobacco Use Types Packs/Day Years [...] t he electric, gas, oil or water [employer] threatened to shut off services in your [...] Description 09/06/2024 10:00 AM EST Clinical Support [facility] [address] [place] [address] 09/07/2024 2:[address] [facility] [address] [place] [address] Kayley Alanis RN 09/14/2024 11:[address] [facility] [address] [place] [address] 10/24/2024 2:00 PM EDT Office Visit [facility] [address] [place] [address] Emiliano, Elisa, OD [address] [place] [address] documented as of this encounter Procedures Procedure Name Priority Date/Time Associated Diagnosis Comments DRUG MONITOR, PANEL 1, SCREEN, URINE Routine 08/02/2024 3:28 PM EST VENOUS BLOOD GAS Routine 08/02/2024 3:24 PM EST HOLD GREEN GEL Routine 08/02/2024 3:19 PM EST ETHANOL Routine 08/02/2024 3:19 PM EST CBC WITH AUTO DIFFERENTIAL Routine 08/02/2024 3:19 PM EST PROTHROMBIN TIME-INR Routine 08/02/2024 3:19 PM EST GLUCOSE, WHOLE BLOOD Routine 08/02/2024 2:47 PM EST documented in this encounter Results * (ABNORMAL) Drug Monitoring, Panel 1, Screen, Urine (08/02/2024 3:28 PM EST) Opiate Screen Urine Not Detected Not Detect [facility] Comment:Opiate cut-off is 30 0 ng/mL.Positive results are unconfirmed and should not be used fornon-medical purposes. Barbiturates, Urine Not Detected Not Detect [facility] Comment:Barbiturate cut-off is 200 ng/mL.Positive results are unconfirmed and should not be used fornon-medical purposes. Phencyclidine Screen Urine Not Detected Not Detect [facility] Comment:Phencyclidine cut-of f is 25 ng/mL.Positive results are unconfirmed and should not be used fornon-medical purposes. Amphetamine Screen Urine Not Detected Not Detect [facility] Comment:Amphetamine cut-off is 1000 ng/mL.Positive results are unconfirmed and should not be used fornon-medical purposes. Benzodiazepines Screen Urine Not Detected Not Detect [facility] Comment:Benzodiazepine cut-o ff is 200 ng/mL.Positive results are unconfirmed and should not be used fornon-medical purposes. Cocaine Screen Urine Not Detected Not Detect [facility] Comment:Cocaine cut-off is 3 00 ng/mL.Positive results are unconfirmed and should not be used fornon-medical purposes. Cannabinoid Screen Urine Not Detected Not Detect [facility] Comment:Cannabinoid cut-off is 50 ng/mL.Positive results are unconfirmed and should not be used fornon-medical purposes. Methadone Screen, Urine Not Detected Not Detect ng/mL [facility] Comment:Methadone cut-off is 300 ng/mL.Positive results are unconfirmed and should not be used fornon-medical purposes. FENTANYL URINE Not Detected Not Detect [facility] Comment:Fentanyl cut-off is 1 ng/mL.Positive results are unconfirmed and should not be used fornon-medical purposes. Oxycodone Urine Screen Positive(A) Not Detect ng/mL [facility] Comment:Oxycodone cut-off is 100 ng/mL.Positive results are unconfirmed and should not be used fornon-medical purposes. Buprenorphine Screen Not Detected Not Detect ng/mL [facility] Comment:Buprenorphine cut-of f is 5 ng/mL.Positive results are unconfirmed and should not be used fornon-medical purposes. 08/02/2024 3:28 PM EST 08/02/2024 3:31 PM EST Generic External Data Provider LAB URINE ORDERAB LES Final Result Performing Organization Address [facility] de Phone Number [facility] [address] [place] [phone] * (ABNORMAL) VENOUS BLOOD GAS (08/02/2024 3:24 PM EST) VBG pH 7.37 7.32 - 7.43 [facility] Comment:METER #: [id number] additional_comment: Cbzaluckj VBG PCO2 57 mmHg [facility] Comment:METER #: [id number] additional_comment: Cbzaluckj VBG PO2 56 mmHg [facility] Comment:METER #: [id number] additional_comment: Cbzaluckj VBG Base Excess 7.4 mmol/L [facility] Comment:METER #: [id number] additional_comment: Cbzaluckj VBG HCO3 33(H) 22 - 26 mmol/L [facility] Comment:METER #: [id number] additional_comment: Cbzaluckj O2 Sat, Samuel 80.0 % [facility] Comment:METER #: [id number] additional_comment: Cbzaluckj 08/02/2024 3:24 PM EST 08/02/2024 3:28 PM EST us Generic External Data Provider LAB BLOOD ORDERAB LES Final Result Performing Organization Address [facility] Co de Phone Number [facility] [address] [place] [phone] * Ethanol (08/02/2024 3:19 PM EST) Pathologist [facility] ETHANOL (MG/DL) IN SER/PLAS <10 mg/dL [facility] Comment:Serum/plasma ethanol results are to be used formedical/treatment purposes only. 08/02/2024 3:19 PM EST 08/02/2024 3:22 PM EST Generic External Data Provider LAB BLOOD ORDERAB LES Final Result Performing Organization Address [facility] Co de Phone Number [facility] [address] [place] [phone] * (ABNORMAL) Prothrombin Time-INR (08/02/2024 3:19 PM EST) [facility] Prothrombin Time 19.3(H) 10.9 - 12.4 SEC [facility] INTERNATIONAL NORM RATIO 1.7(H) 0.9 - 1.1 [facility] Comment:INTERNATIONAL NORMAL IZED RATIO (INR) REFERENCE RANGES Reference RangeFor patients not on anticoagulant therapy: 0.9 - 1.1INR ranges for oral anticoagulanttherapy:For prevention and treatment of venous thrombosis and pulmonary embolism: 2.0 - 3.0For acute myocardial infarction with aspirin therapy: 2.0 - 3.0For acute myocardial infarction without aspirin therapy: 3.0 - 4.0For patients with mechanical prosthetic heart valves: 2.5 - 3.5 08/02/2024 3:19 PM EST 08/02/2024 3:22 PM EST Generic External Data Provider LAB BLOOD ORDERAB LES Final Result Performing Organization Address [facility] Co de Phone Number [facility] [address] [place] [phone] * (ABNORMAL) CBC auto differential (08/02/2024 3:19 PM EST) [facility] White Blood Count 7.0 4.8 - 10.8 X10*3/uL [facility] Red Blood Count 3.49(L) 4.20 - 5.50 X10*6/uL [facility] Hemoglobin 7.4(L) 12.0 - 16.0 g/dl [facility] Hematocrit 25.3(L) 37.0 - 47.0 % [facility] Mean Corpuscular Volume 72.5(L) 80.0 - 98.0 fL [facility] Mean Corpuscular Hemoglobin 21.2(L) 27.0 - 33.0 pg [facility] Mean Corpuscular HGB Conc 29.2(L) 31.0 - 35.0 g/dl [facility] Red Cell Distribution Width 17.9(H) 11.0 - 16.0 % [facility] Platelet Count 367 160 - 400 X10*3/uL [facility] Mean Platelet Volume 10.5 9.4 - 12.3 fL [facility] Neutrophils Percent Auto 68.7 45 - 73 % [facility] Imm Gran Pct Auto 1.7(H) 0.0 - 0.4 % [facility] Lymphocytes Percent Auto 17.8(L) 20 - 40 % [facility] Monocytes Percent Auto 6.2 2 - 11 % [facility] Eosinophils Percent Auto 4.6(H) 0 - 4 % [facility] Basophils Percent Auto 1.0 0 - 2 % [facility] NRBC Pct Auto 0.9(H) 0.0 - 0.2 /100WBC [facility] Neutrophils Absolute Auto 4.8 2.0 - 8.3 x10*3/uL [facility] Imm Gran Abs Auto 0.12(H) 0.00 - 0.03 X10*3/uL [facility] Lymphocytes Absolute Auto 1.2 1.2 - 4.9 X10*3/uL [facility] Monocytes Absolute Auto 0.4 0.1 - 1.2 X10*3/uL [facility] Eosinophils Absolute Auto 0.3 0.0 - 0.4 X10*3/uL [facility] Basophils Absolute Auto 0.1 0.0 - 0.2 X10*3/uL [facility] NRBC Abs Auto 0.060(H) 0.0 - 0.012 X10*3/uL [facility] 08/02/2024 3:19 PM EST 08/02/2024 3:22 PM EST Generic External Data Provider LAB BLOOD ORDERAB LES Final Result Performing Organization Address [facility] Co de Phone Number [facility] [address] [place] [address] [phone] * Hold Green Gel (08/02/2024 3:19 PM EST) Hold Green Gel See Note [facility] Comment:Specimen held untest ed for 24 hours; Call to requestChemistry testing. 08/02/2024 3:19 PM EST 08/02/2024 3:23 PM EST Generic External Data Provider HISTORICAL/NON OR DERABLE LABS Final Result Performing Organization Address [facility] de Phone Number [facility] [address] [place] [address] [phone] * (ABNORMAL) Glucose, Whole Blood (08/02/2024 2:47 PM EST) Glucose, Whole Blood 388(HH) 60 - 115 mg/dL [facility] Comment:METER #: [id number] 08/02/2024 2:47 PM EST 08/02/2024 3:34 PM EST Generic External Data Provider LAB BLOOD ORDERAB LES Final Result Performing Organization Address [facility] de Phone Number [facility] [address] [place] [address] [phone] documented in this encounter Visit Diagnoses Not on filedocumented in this encounter Additional Health Concerns Assessment Noted Time PHQ-9 Depression Total Score: 10 024 3:23 PM EDT documented as of this encounter Care Teams Attenuator Relationship Specialty Start Date End Date Amanda Watkins MD [address] [place] [address] PCP - General Family Medicine 04/07/19 Hiro Ram FNP [address] [place] [address] Nurse Practitioner Family Medicine 07/06/23 [facility] 07/03/22 08/16/24 documented as of this encounter
--- OUTSIDE RECORDS SUMMARY | 2024-09-01 15:46 | XMS_ITS | Encounter Summary ---
Author Organization [employer] Address 75 [facility] 7t [place] [address] Care Team Providers Care Procurement Director Name Role Phone Amanda Watkins MD Primary Care Provide r Hiro Ram Unavailable Unavailable Reason for Visit * Reason Onset Date Comments Hospital Follow-up 03/23/2024 Encounter Details Date Type Department Care Team (Late st Contact Info) Description 03/23/2024 Telephone [facility] [address] [place] [address] Amanda Watkins MD [address] [place] [address] Hospital Follow-up Social History Tobacco Use Types Packs/Day Years [...] * Telephone Encounter - Sky Sánchez - 03/23/2024 1:29 PM EDT Tc from pt requesting a HDF appt. Hospital: [facility] Date of admission: 03/18 Discharge date: 03/21 Diagnosed: Cellulitis documented in this encounter Plan of Treatment Upcoming Encounters Date Type Department Care Team (Late st Contact Info) Description 09/06/2024 10:00 AM EST Clinical Support [facility] [address] [place] [address] 09/07/2024 2:00 PM EST Telemedicine [address] [address] Kayley Alanis, PHILLIP 09/14/2024 11:00 AM EST Telemedicine [facility] [address] [place] [address] 10/24/2024 2:00 PM EDT Office Visit [facility] [address] [place] [address] Elisa Cummings, OD [address] [place] [address] documented as of this encounter Visit Diagnoses Not on filedocumented in this encounter Additional Health Concerns Assessment Noted Time PHQ-9 Depression Total Score: 10 024 3:23 PM EDT documented as of this encounter Care Teams Procurement Director Relationship Specialty Start Date End Date Amanad Watkins MD [address] [place] [address] PCP - General Family Medicine 04/07/19 Hiro Ram FNP [address] [place] [address] Nurse Practitioner Family Medicine 07/06/23 [facility] 07/03/22 08/16/24 Ja [facility] 08/10/24 documented as of this encounter
--- OUTSIDE RECORDS SUMMARY | 2024-09-01 15:46 | XMS_ITS | Encounter Summary ---
Author Organization [employer] Address [address] [facility] 7t [place] [address] Care Team Providers Care Bindery Machine Operator Name Role Phone Amanda Watkins MD Primary Care Provide r Hiro Ram Unavailable Unavailable Reason for Visit * Reason Onset Date Comments Hospital Follow-up 04/04/2024 Encounter Details Date Type Department Care Team (Late st Contact Info) Description 04/04/2024 Telephone [facility] [address] [place] [address] Amanda Watkins MD [address] [place] [address] Hospital Follow-up Social History Tobacco Use Types [...] encounter Miscellaneous Notes * Telephone Encounter - Francisco Moraes - 04/04/2024 9:00 AM EDT Tc from pt requesting a HDF appt. Hospital: [facility] Date of admission: 03/18 Discharge date: 03/21 Diagnosed: Cellulitis documented in this encounter Plan of Treatment Upcoming Encounters Date Type Department Care Team (Late st Contact Info) Description 09/06/2024 10:00 AM EST Clinical Support [facility] [address] [place] [address] 09/07/2024 2:00 PM EST Telemedicine [facility] [address] [place] [phone] Kayley Alanis, PHILLIP 09/14/2024 11:00 AM EST Telemedicine [facility] [address] [place] [address] 10/24/2024 2:00 PM EDT Office Visit [facility] [address] [place] [address] Elisa Cummings, OD [address] [place] [address] documented as of this encounter Visit Diagnoses Not on filedocumented in this encounter Additional Health Concerns Assessment Noted Time PHQ-9 Depression Total Score: 10 024 3:23 PM EDT documented as of this encounter Care Teams Bindery Machine Operator Relationship Specialty Start Date End Date Amanda Watkins MD [address] [place] [address] PCP - General Family Medicine 04/07/19 Hiro Ram FNP [address] [place] [address] Nurse Practitioner Family Medicine 07/06/23 [facility] 07/03/22 08/16/24 Ja [facility] 08/10/24 documented as of this encounter
--- OUTSIDE RECORDS SUMMARY | 2024-09-01 15:46 | XMS_ITS | Encounter Summary ---
Author Organization [employer] Address 75 [facility] 7t [place] [address] Care Team Providers Care Generator Worker Name Role Phone Amanda Watkins MD Primary Care Provide r Hiro Ram Unavailable Unavailable Reason for Visit * Reason Onset Date Comments No Show 08/16/2024 Encounter Details Date Type Department Care Team ([facility] st Contact Info) Description 08/16/[address] [facility] MEDICINE [address] [place] [address] Amanda Watkins MD [address] [place] [address] No Show Social History Tobacco Use Types Packs/Day Years [...] encounter Miscellaneous Notes * Telephone Encounter - Ana Maria Arias - 08/16/2024 11:51 AM EST Pt no showed to appt on 08/16/24 documented in this encounter Plan of Treatment Upcoming Encounters Date Type Department Care Team (Late st Contact Info) Description 09/06/2024 10:00 AM EST Clinical Support [facility] MEDICINE [address] [place] [address] 09/07/2024 2:00 PM EST Telemedicine [facility] MED[facility]INE [address] [place] [address] Kayley Alanis RN 09/14/2024 11:00 AM EST Telemedicine [facility] MEDICINE [address] [place] [address] 10/24/2024 2:00 PM EDT Office Visit [facility] OPTOMETRY [address] [place] [address] Elisa Cummings, OD [address] [place] [address] documented as of this encounter Visit Diagnoses Not on filedocumented in this encounter Additional Health Concerns Assessment Noted Time PHQ-9 Depression Total Score: 10 024 3:23 PM EDT documented as of this encounter Care Teams Generator Worker Relationship Specialty Start Date End Date Amanda Watkins MD [address] [place] [address] PCP - General Family Medicine 04/07/19 Hiro Ram FNP [address] [place] [address] Nurse Practitioner Family Medicine 07/06/23 [facility] 07/03/22 08/16/24 Ja [facility] 08/10/24 documented as of this encounter
--- OUTSIDE RECORDS SUMMARY | 2024-09-01 15:47 | XMS_ITS | Encounter Summary ---
Author Organization [employer] Address 75 [facility] 7t [place] [address] Care Team Providers Care Barge Captain Name Role Phone Amanda Watkins MD Primary Care Provide r Hiro Ram Unavailable Unavailable Encounter Details Date Type Department Care Team ([facility] st Contact Info) Description 08/25/2024 Telephone [facility] [address] [place] [address] Sia Leon, PharmD [address] [place] [address] Social History Tobacco Use Types Packs/Day Years [...] encounter Miscellaneous Notes * Telephone Encounter - Sia Leon PharmD - 08/25/2024 12:02 PM EST Patients daughter requesting CGM teach. Please reach out at [phone]. Thank you documented in this encounter Plan of Treatment Upcoming Encounters Date Type Department Care Team (Late st Contact Info) Description 09/06/2024 10:00 AM EST Clinical Support [facility] [address] [place] [address] 09/07/2024 2:00 PM EST Telemedicine [facility] [address] [place] [address] Kayley Alanis RN 09/14/2024 11:00 AM EST Telemedicine [facility] [address] [place] [address] 10/24/2024 2:00 PM EDT Office Visit [facility] OPTOMETRY [address] [place] [address] Elisa Cummings, OD [address] [place] [address] documented as of this encounter Visit Diagnoses Not on filedocumented in this encounter Additional Health Concerns Assessment Noted Time PHQ-9 Depression Total Score: 10 024 3:23 PM EDT documented as of this encounter Care Teams Barge Captain Relationship Specialty Start Date End Date Amanda Watkins MD [address] [place] [address] PCP - General Family Medicine 04/07/19 Hiro Ram FNP [address] [place] [address] Nurse Practitioner Family Medicine 07/06/23 [facility] 08/10/24 documented as of this encounter
--- OUTSIDE RECORDS SUMMARY | 2024-09-01 15:47 | XMS_ITS | Encounter Summary ---
Author Organization [employer] Address 75 [facility] 7t [place] [address] Care Team Providers Care Technical Services Consultant Name Role Phone Amanda Watkins MD Primary Care Provide r Hiro Ram Unavailable Unavailable Encounter Details Date Type Department Care Team (Latest Contact Info) Description 09/01/2024 Travel Social History Tobacco Use Types Packs/Day Years Used Date Smoking Tobacco: Never Passive Smoke Exposure: Never Smokeless Tobacco: Never Alcohol Use Standard Drinks/Week Comments Never 0 (1 standard drink = 0.6 oz pur e alcohol) Depression Answer Date Recorded Patient Health Questionnaire-9 Score 0 09/01/2024 Patient Health Questionnaire-9 Score 0 09/01/2024 Last PHQ-9: Questionnaire Data Not on file 0 09/01/2024 Housing Stability Answer Date Recorded What is [...] Answer Date Recorded Patient Health Questionnaire-2 Score 0 09/01/2024 Comments Unknown Sex and Gender Information Value [...] 10:00 AM EST Clinical Support [facility] [address] [place] [address] 09/07/2024 2:00 PM EST Telemedicine [address] [address] Kayley Alanis, PHILLIP 09/14/2024 11:00 AM EST Telemedicine [address] [address] 10/24/2024 2:00 PM EDT Office Visit [facility] OPTOMETRY [address] [place] [address] Emiliano, Elisa, OD [address] [place] [address] documented as of this encounter Visit Diagnoses Not on filedocumented in this encounter Additional Health Concerns Assessment Noted Time PHQ-9 Depression Total Score: 0 09/01/19 25 1:18 PM EST documented as of this encounter Care Teams Technical Services Consultant Relationship Specialty Start Date End Date Amanda Watkins MD [address] [place] [address] PCP - General Family Medicine 04/07/19 Hiro Ram FNP [address] [place] [address] Nurse Practitioner Family Medicine 07/06/23 [facility] documented as of this encounter
--- OUTSIDE RECORDS SUMMARY | 2024-09-01 15:47 | XMS_ITS | Encounter Summary ---
Author Organization [employer] Address 75 [facility] 7t [place] [address] Care Team Providers Care Protective Signal Repairer Name Role Phone Amanda Watkins MD Primary Care Provide r Hiro Ram Unavailable Unavailable Reason for Visit * Reason Onset Date Comments Durable Medical Equipment 08/31/2024 L&C Fo rm: Briefs and Underpads Encounter Details Date Type Department Care Team ([facility] st Contact Info) Description 08/31/2024 Telephone [facility] MEDICINE [address] [place] [address] Amanda Watkins MD [address] [place] [address] Durable Medical Equipment (L&C Form: Briefs and Underpads) Social History Tobacco Use Types Packs/Day Years [...] * Telephone Encounter - Margie Sánchez - 08/31/2024 10:45 AM EST Confirmation of order for Diapers/pull ups and Disposable underpads/bedpads from [facility] received and is being processed. documented in this encounter Plan of Treatment Upcoming Encounters Date Type Department Care Team (Late st Contact Info) Description 09/06/2024 10:00 AM EST Clinical Support [facility] MEDICINE [address] [place] [address] 09/07/2024 2:00 PM EST Telemedicine [facility] MEDICINE [address] [place] [address] Kayley Alanis, PHILLIP 09/14/2024 11:00 AM EST Telemedicine [facility] [address] [place] [address] 10/24/2024 2:00 PM EDT Office Visit [facility] OPTOMETRY [address] [place] [address] Elisa Cummings, OD [address] [place] [address] documented as of this encounter Visit Diagnoses Not on filedocumented in this encounter Additional Health Concerns Assessment Noted Time PHQ-9 Depression Total Score: 10 024 3:23 PM EDT documented as of this encounter Care Teams Protective Signal Repairer Relationship Specialty Start Date End Date Amanda Watkins MD [address] [place] [address] PCP - General Family Medicine 04/07/19 Hiro Ram FNP [address] [place] [address] Nurse Practitioner Family Medicine 07/06/23 [facility] 08/10/24 documented as of this encounter
--- OUTSIDE RECORDS SUMMARY | 2024-09-01 15:47 | XMS_ITS | Encounter Summary ---
Author Organization [employer] Address [address] [facility] 7t [place] [address] Care Team Providers Care Code Enforcement Inspector Name Role Phone Amanda Watkins MD Primary Care Provide r Hiro Ram Unavailable Unavailable Reason for Visit * Reason Onset Date Comments CRITICAL RESULT 08/22/2024 Encounter Details Date Type Department Care Team ([facility] st Contact Info) Description 08/22/2024 Telephone [facility] MEDICINE [address] [place] [address] Amanda Watkins MD [address] [place] [address] CRITICAL RESULT Social History Tobacco Use Types Packs/Day Years [...] encounter Miscellaneous Notes * Telephone Encounter - Maggi Harmon RN - 08/23/2024 9:23 AM EST TC placed to all the listed numbers in the pt chart but unable to contact due to being out of service or no VM set up. TC then placed to pt daughter Nai (EC, not on HIPAA but able to speak on thept behalf) who states that the pt is still at [facility] even though ED discharge documentation states that the pt was discharged home after being treated with fluids and insulin for hyperglycemia. Pt daughter Nai will confirm that the pt is home from [facility] and call back the office to let us know. Nai reminded of upcoming HDF appt with Dr. Adame on 09/01/2024. Nai stated understanding and was agreeable to this plan of care. * Telephone Encounter - Danyelle Huitron RN - 08/22/2024 2:10 PM EST Incoming call to the Critical Result line 08/22/24 at 2:11 PM Name of Caller/Facility:[facility] Callback number: [phone] Reason for Call: GLUCOSE 555MG/dL DRAWN TODAY 08/22/24 AT 1300 Message to be forwarded to Amanda Adame MD and team nurses for follow up. Call to Mary Lou S Sonido Cisneros at both work and mobile number. Not in service. Call to daughter who is EC, not with patient, requests call to alt sister who is with patient now. [phone]. Call to this number provided, spoke with daughter Alie Weldon, states patient has not checked BS since returning home from blood work. Per daughter checked BS with [employer]. Pt had breakfast with saltine crackers, olive oil butter and black coffee with Splenda. Pt also had plantains and fried ham for lunch. Pt last had Lantus dose yesterday. Pt has not had today. Pt took all oral meds. Pt had BS of 381mg/dL . Having mild CORONA and dry mouth. Dejon advised of disposition, agrees to initiate EMS for ER transport as hard for patient to ambulate out of the home. Protocol Used: Diabetes - High Blood Sugar (Adult) Protocol-Based Disposition: Go to ED/UCC Now (or to Office with PCP Approval) Positive Triage Question: * Blood glucose > 500 mg/dL (27.8 mmol/L) * All higher-acuity triage questions were negative Care Advice Discussed: * High Blood Sugar (Hyperglycemia) * Treatment - Liquids * Diabetes Pills * Reasons To Call Back - You become worse documented in this encounter Plan of Treatment Upcoming Encounters Date Type Department Care Team (Late st Contact Info) Description 09/06/2024 10:00 AM EST Clinical Support [facility] MEDICINE [address] [place] [address] 09/07/2024 2:00 PM EST Telemedicine [facility] MEDICINE [address] [place] [address] Kayley Alanis, PHILLIP 09/14/2024 11:00 AM EST Telemedicine [facility] MEDICINE [address] [place] [address] 10/24/2024 2:00 PM EDT Office Visit [facility] OPTOMETRY [address] [place] [address] Elisa Cummings, OD [address] [place] [address] documented as of this encounter Visit Diagnoses Not on filedocumented in this encounter Additional Health Concerns Assessment Noted Time PHQ-9 Depression Total Score: 10 024 3:23 PM EDT documented as of this encounter Care Teams Code Enforcement Inspector Relationship Specialty Start Date End Date Amanda Watkins MD [address] [place] [address] PCP - General Family Medicine 04/07/19 Hiro Ram FNP [address] [place] [address] Nurse Practitioner Family Medicine 07/06/23 [facility] 08/10/24 documented as of this encounter
--- OUTSIDE RECORDS SUMMARY | 2024-09-01 15:47 | XMS_ITS | Encounter Summary ---
Author Organization [email or web address] Address 75 [facility] 7t [place] [address] Care Team Providers Care Sales And Marketing Vice President Name Role Phone Amanda Watkins MD Primary Care Provide r Hiro Ram Unavailable Unavailable Reason for Visit * Reason Onset Date Comments Hospital Follow-up 08/16/2024 Encounter Details Date Type Department Care Team (Late st Contact Info) Description 08/16/2024 Telephone [facility] MEDICINE [address] [place] [address] Amanda Watkins MD [address] [place] [address] Hospital Follow-up Social History Tobacco Use Types [...] encounter Miscellaneous Notes * Telephone Encounter - Nataliia Marquez - 08/16/2024 11:04 AM EST Tc from pt requesting a HDF appt. Hospital: [facility] Date of admission: 08/12/24 Discharge date: 08/15/2024 Diagnosed: (water in the lungs) *Send message to [place] Clinical Care Coordinators documented in this encounter Plan of Treatment Upcoming Encounters Date Type Department Care Team (Late st Contact Info) Description 09/06/2024 10:00 AM EST Clinical Support [facility] MEDICINE [address] [place] [address] 09/07/2024 2:00 PM EST Telemedicine [facility] MED[facility]INE [address] [place] [address] Kayley Alanis, PHILLIP 09/14/2024 11:00 AM EST Telemedicine [facility] MED[facility]INE [address] [place] [address] 10/24/2024 2:00 PM EDT Office Visit [facility] OPTOMETRY [address] [place] [address] Elisa Cummings, OD [address] [place] [address] documented as of this encounter Visit Diagnoses Not on filedocumented in this encounter Additional Health Concerns Assessment Noted Time PHQ-9 Depression Total Score: 10 024 3:23 PM EDT documented as of this encounter Care Teams Sales And Marketing Vice President Relationship Specialty Start Date End Date Amanda Watkins MD [address] [place] [address] PCP - General Family Medicine 04/07/19 Hiro Ram FNP [address] [place] [address] Nurse Practitioner Family Medicine 07/06/23 [facility] 07/03/22 08/16/24 [facility] 08/10/24 documented as of this encounter
--- OUTSIDE RECORDS SUMMARY | 2024-09-01 15:47 | XMS_ITS | Encounter Summary ---
Author Organization [employer] Address 75 [facility] 7t [place] [address] Care Team Providers Care Rehabilitation Program Manager Name Role Phone Amanda Watkins MD Primary Care Provide r Hiro Ram Unavailable Unavailable Reason for Visit * Reason Onset Date Comments [employer] Forms 08/31/2024 Encounter Details Date Type Department Care Team ([facility] st Contact Info) Description 08/31/2024 Telephone [facility] MEDICINE [address] [place] [address] Kayley Alanis, RN BASKET WE[employer]ER Forms Social History Tobacco Use Types Packs/Day Years [...] encounter Miscellaneous Notes * Telephone Encounter - Kayley Alanis RN - 08/31/2024 10:03 AM EST TC via BLS#[id number], no answer. L/M asking she call back regarding [employer] forms and appt 09/07/24. documented in this encounter Plan of Treatment Upcoming Encounters Date Type Department Care Team (Late st Contact Info) Description 09/06/2024 10:00 AM EST Clinical Support [facility] MEDICINE [address] [place] [address] 09/07/2024 2:00 PM EST Telemedicine [facility] MEDICINE [address] [place] [address] Kayley Alanis RN 09/14/2024 11:00 AM EST Telemedicine [facility] MEDICINE [address] [place] [address] 10/24/2024 2:00 PM EDT Office Visit [facility] OPTOMETRY [address] [place] [address] Emiliano, Elisa, OD [address] [place] [address] documented as of this encounter Visit Diagnoses Not on filedocumented in this encounter Additional Health Concerns Assessment Noted Time PHQ-9 Depression Total Score: 10 024 3:23 PM EDT documented as of this encounter Care Teams Rehabilitation Program Manager Relationship Specialty Start Date End Date Amanda Watkins MD [address] [place] [address] PCP - General Family Medicine 04/07/19 Hiro Ram FNP [address] [place] [address] Nurse Practitioner Family Medicine 07/06/23 [facility] 08/10/24 documented as of this encounter
--- OUTSIDE RECORDS SUMMARY | 2024-09-01 15:47 | XMS_ITS | Encounter Summary ---
Author Organization [employer] Address 75 [facility] 7t [place] [address] Care Team Providers Care Np Name Role Phone Amanda Watkins MD Primary Care Provide r Hiro Ram Unavailable Unavailable Reason for Visit * Reason Comments Transition Of Care (Tcm) HDF- scheduled and SDOH screening completed on 10/15/2023 Encounter Details Date Type Department Care Team ([facility] st Contact Info) Description 08/16/2024 Patient Outreach [facility] MEDICINE [address] [place] [address] Amanda Watkins MD [address] [place], [place] [id number] Transition Of Care (Tcm) (HDF- scheduled and SDOH screening completed on 10/15/2023) Social History Tobacco Use Types Packs/Day Years [...] as of this encounter Miscellaneous Notes * Significant Event - Valery Manzanares - 08/16/2024 11:21 AM EST 08/16/24 1113 Hospital Discharges and Admission for [facility] Type of Visit Hospital Admission Date of Admission/Visit 08/12/24 Date of Discharge 08/15/24 Facility [facility] Diagnosis long term care social worker (current) use of insulin ,Coronary artery disease involving [place] coronary artery of [place] heart without angina pectoris, Anxiety ,Acute on chronic congestive heart failure, unspecified heart failure type Disposition Discharged with [facility] Follow-Up Actions Follow-Up Needed Provider appointment Initial Contact Date 08/16/24 OLIVER Hercules placed outbound call to patient for HDF outreach. Patient's name and were confirmed by daughter Nai. Patient daughter educated on the importance of follow up with provider following inpatient admission. Patient daughter offered an HDF appt. Patient daughter is agreeable to an appointment and has been scheduled for 09/01/2024 at 1pm- with Dr. Adame. Insurance verified prior to scheduling. Patient daughter advised to bring to appointment a photo id and insurance card. Patient daughter provided with education on contacting the Health Center with any questions or concerns prior to the scheduled appointment. Patient daughter educated on extended clinic hours on Mondays andWednesdays, and Walk-In Urgent Care Located in [facility]. [facility] time [facility] and option to transfer to supervisor front provider if needed. CC scanned discharge summary into patient's chart. Biggest concern for appointment at this time is per daughter patient has water in lungs and kidney is deteriorating and also patient keeps missing appointments due to her conditions and age. Appropriate screenings completed in anticipation of appointment. documented in this encounter Plan of Treatment Upcoming Encounters Date Type Department Care Team (Late st Contact Info) Description 09/06/2024 10:00 AM EST Clinical Support [address] [address] 09/07/2024 2:00 PM EST Telemedicine [address] [address] Kayley Alanis RN 09/14/2024 11:00 AM EST Telemedicine [address] [address] 10/24/2024 2:00 PM EDT Office Visit [facility] OPTOMETRY [address] [place] [address] Elisa Cummings, OD [address] [place] [address] documented as of this encounter Visit Diagnoses Not on filedocumented in this encounter Additional Health Concerns Assessment Noted Time PHQ-9 Depression Total Score: 10 024 3:23 PM EDT documented as of this encounter Care Teams Np Relationship Specialty Start Date End Date Amanda Watkins MD [address] [place] [address] PCP - General Family Medicine 04/07/19 Hiro Ram FNP [address] [place] [address] Nurse Practitioner Family Medicine 07/06/23 [facility] 07/03/22 08/16/24 Ja [facility] 08/10/24 documented as of this encounter
--- OUTSIDE RECORDS SUMMARY | 2024-09-01 15:47 | XMS_ITS | Encounter Summary ---
Author Organization [employer] Address [address] [facility] 7t [place] [address] Care Team Providers Care Erosion Control Coordinator Name Role Phone Amanda Watkins MD Primary Care Provide r Hiro Ram Unavailable Unavailable Reason for Visit * Reason Comments Care Coordination Home Care Agency Encounter Details Date Type Department Care Team ([facility] st Contact Info) Description 08/17/2024 Telephone [facility] [address] [place] [address] Amanda Watkins MD [address] [place] [address] Care Coordination (Home Care Agency ) Social History Tobacco Use Types Packs/Day Years [...] as of this encounter Progress Notes * Uma Cordoba RN - 08/17/2024 10:39 AM EST Received start of care orders from [facility] with start date of 08/10/24. Patient has current plan of care orders with overlapping certification period from [facility]. Please verify if patient is active with both of these agencies. If patient active with both agencies, please discharge patient from one of these agencies and update Care Team with the appropriate VNA agency so that orders may be signed appropriately. documented in this encounter Miscellaneous Notes * Telephone Encounter - Temitope Natarajan RN - 08/17/2024 11:03 AM EST Noted. RN called [email or web address] [facility] [phone] who reports the patient is ACTIVE with them for PT only (patient last saw PT on 08/15/23). Patient used to receive jail BID but services were discontinued 07/26/24. RN called [facility] [phone] who reports the patient is also ACTIVE with them asof 08/10/24 for PT, OT and jail twice a week. NA received referral from patients recent [facility] admission. RN called patient [phone] to inquire which agency patient would like to stay active with as patient cannot have 2 VNA agencies. However, RN received automated recording the person you are calling cannot accept calls at this time . TC placed to [phone] however number is OOS. TC placed to [phone], spoke to daughter who would like to stay with [facility] as patient is receiving more services with them vs [facility]. [facility] [phone] to notify them to discharge patient from services as patient will be receiving services from [facility]. Film Splicer verbalized understanding and will notify team. TCplaced to [facility] [phone] to inform them to continue services with patient as healthteachey will bediscontinued and they have been notified. [facility] verbalized understanding. Sending as FYI. documented in this encounter Plan of Treatment Upcoming Encounters Date Type Department Care Team (Late st Contact Info) Description 09/06/2024 10:00 AM EST Clinical Support [facility] [address] [place] [address] 09/07/2024 2:00 PM EST Telemedicine [facility] [address] [place] [address] Kayley Alanis RN 09/14/2024 11:00 AM EST Telemedicine [facility] [address] [place] [address] 10/24/2024 2:00 PM EDT Office Visit [facility] OPTOMETRY [address] [place] [address] Elisa Cummings, OD [address] [place] [address] documented as of this encounter Visit Diagnoses Not on filedocumented in this encounter Additional Health Concerns Assessment Noted Time PHQ-9 Depression Total Score: 10 024 3:23 PM EDT documented as of this encounter Care Teams Erosion Control Coordinator Relationship Specialty Start Date End Date Amanda Watkins MD [address] [place] [address] PCP - General Family Medicine 04/07/19 Hiro Ram FNP [address] [place] [address] [place] [address] Nurse Practitioner Family Medicine 07/06/23 Ja [facility] 08/10/24 documented as of this encounter
--- OUTSIDE RECORDS SUMMARY | 2024-09-01 15:47 | XMS_ITS | Encounter Summary ---
Author Organization [employer] [facility] Address [address] [facility] 7t [place] [address] Care Team Providers Care Hand I Cutter Name Role Phone Amanda Watkins MD Primary Care Provide r Hiro Ram Unavailable Unavailable Reason for Referral * Consultation (Routine) - Authorized Specialty Diagnoses / Procedures Referred By Caren queen Referred To Contact Nutrition Diagnoses Type 2 diabetes mellitus with hyperglycemia, with long-term current use of insulin (CMS/HCC) Chronic diastolic congestive heart failure ([facility]/HCC) Amanda Watkins MD [address] [place] [address] Phone: tel: fax: Referral ID Status Reason Start Date Expiration Date Visits Requested Visits Authorized [id number] Authorized Specialty Services Required 09/01/2024 09/01/2025 1 1 * Consultation (Routine) - Authorized Specialty Diagnoses / Procedures Referred By Caren queen Referred To Contact Pharmacy Diagnoses Type 2 diabetes mellitus with hyperglycemia, with long-term current use of insulin ([facility]/HCC) Amanda Watkins MD [address] [place] [address] Phone: tel: fax: Referral ID Status Reason Start Date Expiration Date Visits Requested Visits Authorized [id number] Authorized Consult and Treat 09/01/2024 09/01/2025 6 6 Encounter Details Date Type Department Care Team (Latest Contact Info) Description 09/01/2024 1:00 PM EST Office Visit [facility] MED[facility]INE [address] [place] [address] Amanda Watkins MD [address] [place] [address] Type 2 diabetes mellitus with hyperglycemia, with long-term current use of insulin (CMS/[facility]) (Primary Dx); Chronic diastolic congestive heart failure (CMS/HCC); Acquired hypothyroidism; Primary hypertension; Allergic conjunctivitis of both eyes; Other constipation Social History Tobacco Use Types Packs/Day Years [...] AM EDT documented as of this encounter Last Filed Vital Signs Vital Sign Reading Time Taken Comments Blood Pressure 156/74 09/01/2024 1:17 PM EST Pulse 69 09/01/2024 1:17 PM EST Temperature 35.9 ??C (96.6 ??F) 09/01/2024 1:17 PM ES T Respiratory Rate 19 09/01/2024 1:17 PM EST Oxygen Saturation 95% 09/01/2024 1:17 PM EST Inhaled Oxygen Concentration - - Weight 105 kg (232 lb 6.4 oz) 09/01/2024 1:17 PM EST Height 154.9 cm (5' 1 ) 09/01/2024 1:17 PM EST Body Mass Index 43.91 09/01/2024 1:17 PM EST documented in this encounter Plan of Treatment Upcoming Encounters Date Type Department Care Team (Late st Contact Info) Description 09/06/2024 10:00 AM EST Clinical Support [facility] MEDICINE [address] [place] [address] 09/07/2024 2:00 PM EST Telemedicine [facility] [address] [place] [address] Kayley Alanis, PHILLIP 09/14/2024 11:00 AM EST Telemedicine [facility] [address] [place] [address] 10/24/2024 2:00 PM EDT Office Visit [facility] OPTOMETRY [address] [place] [address] Elisa Cummings, OD [address] [place] [address] Scheduled Orders Name Type Priority Associated Diagnoses Orde r Schedule Basic Metabolic Panel Lab Routine Type 2 diabetes mellitus with hyperglycemia, with long-term current use of insulin ([facility]) Expected: 09/01/2024 (Approximate), Expires: 09/01/2025 TSH W/Reflex to FT4 Lab Routine Acquired hypothyroidism Expected: 09/01/2024 (Approximate), Expires: 09/01/2025 Scheduled Referrals Name Type Priority Associated Diagnoses Orde r Schedule Referral to Pharmacy CDTM Outpatient Referral Routine Type 2 diabetes mellitus with hyperglycemia, with long-term current use of insulin ([facility]) Ordered: 09/01/2024 Referral to Nutrition Services, Internal Outpatient Referral Routine Type 2 diabetes mellitus with hyperglycemia, with long-term current use of insulin ([facility]) Chronic diastolic congestive heart failure ([facility]) Expected: 09/01/2024 (Approximate), Expires: 09/01/2025 documented as of this encounter Procedures Procedure Name Priority Date/Time Associated Diagnosis Comments POCT GLYCATED HEMOGLOBIN, TOTAL Routine 09/01/2024 1:24 PM EST Type 2 diabetes mellitus with hyperglycemia, with long-term current use of insulin ([facility]) POCT GLUCOSE Routine 09/01/2024 1:23 PM EST Type 2 diabetes mellitus with hyperglycemia, with long-term current use of insulin ([facility]) documented in this encounter Results * (ABNORMAL) POCT HGB A1C (09/01/2024 1:24 PM EST) Hemoglobin A1C 11.6(A) 4.0 - 6.0 % QC Media Lot # [id number] Lot# Expiration Date Blood 09/01/2024 1:24 PM EST us Amanda Myers MD POINT OF CARE TEST EN TER/EDIT ORDERABLES Final Result * (ABNORMAL) POCT Glucose (09/01/2024 1:23 PM EST) Glucose Blood, POC 99,999(A) 60 - 200 mg/dL [employer] Media Lot # [id number] Lot# Expiration Date ,025 Blood Capillary blood specimen / Unknown 09/01/2024 1:23 PM EST us Amanda Myers MD POINT OF CARE TEST EN TER/EDIT ORDERABLES Final Result documented in this encounter Visit Diagnoses Diagnosis Type 2 diabetes mellitus with hyperglycemia, with long-term current use of insulin ([facility])- Primary Chronic diastolic congestive heart failure ([facility]) Acquired hypothyroidism Unspecified hypothyroidism Primary hypertension Unspecified essential hypertension Allergic conjunctivitis of both eyes Other chronic allergic conjunctivitis Other constipation documented in this encounter Additional Health Concerns Assessment Noted Time PHQ-9 Depression Total Score: 0 09/01/19 25 1:18 PM EST documented as of this encounter Care Teams Hand I Cutter Relationship Specialty Start Date End Date Amanda Watkins MD [address] [place] [address] PCP - General Family Medicine 04/07/19 Hiro Ram FNP [address] [place] [address] Nurse Practitioner Family Medicine 07/06/23 [facility] 08/10/24 documented as of this encounter
--- OUTSIDE RECORDS SUMMARY | 2024-09-01 15:47 | XMS_ITS | Encounter Summary ---
Author Organization [employer] Address [address] [facility] 7t [place] [address] Care Team Providers Care Residential Field Manager Name Role Phone Amanda Watkins MD Primary Care Provide r Hiro Ram Unavailable Unavailable Reason for Visit * Reason Onset Date Comments HDF appointment 08/16/2024 Encounter Details Date Type Department Care Team (Late st Contact Info) Description 08/16/2024 Telephone [facility] [address] [place] [address] Temitope Natarajan, PHILLIP [address] [place] [address] HDF appointment Social History Tobacco Use Types Packs/Day Years [...] Encounter - Temitope Natarajan RN - 08/17/2024 11:12 AM EST PCP discussed below with RN. PCP would like to see patient in person to auscultate lungs d/t admission diagnosis. TC placed to daughter [phone] to inform PCP would prefer to see patient in person if possible d/t recent admission diagnosis. Daughter verbalized understanding and reports she willkeep the appointment in person. Daughter to f/u PRN. * Telephone Encounter - Temitope Natarajan RN - 08/16/2024 12:19 PM EST Patient is scheduled for HDF on 09/01/24 and wants appointment to be changed to a televisit. Please review and advise if appropriate to change to a televisit. Thank you! ----- Message from Valery Schroeder sent at 08/16/2024 11:26 AM EST ----- Patient has an upcoming HDF appt for 09/01/[address] Sierra and daughter would like toknow if appointment can be tele health since every time patient is scheduled for an appt pt does not want to come in person. Please contact at [phone] documented in this encounter Plan of Treatment Upcoming Encounters Date Type Department Care Team (Late st Contact Info) Description 09/06/2024 10:00 AM EST Clinical Support [facility] [address] [place] [address] 09/07/2024 2:00 PM EST Telemedicine [facility] [address] [place] [address] Kayley Alanis RN 09/14/2024 11:00 AM EST Telemedicine [facility] [address] [place] [address] 10/24/2024 2:00 PM EDT Office Visit [facility] [address] [place] [address] Elisa Cummings, OD [address] [place] [address] documented as of this encounter Visit Diagnoses Not on filedocumented in this encounter Additional Health Concerns Assessment Noted Time PHQ-9 Depression Total Score: 10 024 3:23 PM EDT documented as of this encounter Care Teams Residential Field Manager Relationship Specialty Start Date End Date Amanda Watkins MD [address] [place] [address] PCP - General Family Medicine 04/07/19 Hiro Ram FNP [address] [place] [address] Nurse Practitioner Family Medicine 07/06/23 [facility] 07/03/22 08/16/24 [facility] 08/10/24 documented as of this encounter
--- OUTSIDE RECORDS SUMMARY | 2024-09-01 15:47 | XMS_ITS | Encounter Summary ---
Author Organization [employer] Address [address] [facility] 7t [place] [address] Care Team Providers Care Professor Of Voice Name Role Phone Amanda Watkins MD Primary Care Provide r Hiro Ram Unavailable Unavailable Encounter Details Date Type Department Care Team ([facility] st Contact Info) Description 08/22/2024 Orders Only [facility] [address] [place] [address] Amanda Watkins MD [address] [place], [place] [phone] Social History Tobacco Use Types Packs/Day Years [...] 10:00 AM EST Clinical Support [facility] [address] [place] [address] 09/07/2024 2:00 PM EST Telemedicine [address] [address] Kayley Alanis, PHILLIP 09/14/2024 11:00 AM EST Telemedicine [facility] [address] [place] [address] 10/24/2024 2:00 PM EDT Office Visit [facility] [address] [place] [address] Emiliano, Elisa, OD [address] [place] [address] documented as of this encounter Procedures Procedure Name Priority Date/Time Associated Diagnosis Comments GLUCOSE, WHOLE BLOOD Routine 08/22/2024 6:45 PM EST LACTIC ACID LAB USE ONLY Routine 08/22/2024 6:33 PM EST BASIC METABOLIC PANEL Routine 08/22/2024 6:33 PM EST XR CHEST 2 VIEWS Routine 08/22/2024 5:5 1 PM EST GLUCOSE, WHOLE BLOOD Routine 08/22/2024 5:09 PM EST BASIC METABOLIC PANEL Routine 08/22/2024 12:56 PM EST documented in this encounter Results * (ABNORMAL) Glucose, Whole Blood (08/22/2024 6:45 PM EST) Glucose, Whole Blood 339(H) 60 - 115 mg/dL [facility] Comment:METER #: [id number] 08/22/2024 6:45 PM EST 08/22/2024 6:48 PM EST us Generic External Data Provider LAB BLOOD ORDERAB LES Final Result [facility] [address] [place] [phone] * (ABNORMAL) Basic Metabolic Panel (08/22/2024 6:33 PM EST) Pathologist [facility] Sodium 140 135 - 145 mmol/L [facility] Potassium 4.8 3.3 - 5.1 mmol/L [facility] Comment:Slight Hemolysis.Int erpret result with caution. Chloride 102 96 - 108 mmol/L [facility] Carbon Dioxide 33(H) 22 - 29 mmol/L [facility] Anion Gap 10(L) 12 - 20 [facility] Urea Nitrogen (BUN) 35(H) 9 - 16 mg/dL [facility] Creatinine, Serum 1.78(H) 0.5 - 1.4 mg/dL [facility] Creatinine Clr Calc Pharmacy 32.5 [facility] Comment:Provided height and weight: 167.64 cm,99.79 kg.eGFR (calculated from the MDRD study equation) and eCrCl(calculated from the Cockcroft-Gault equation) are based ondifferent parameters and may not yield comparable results.If eCrCl result is absurd, please check patient'sheight/weight. Estimated Glomerular Filt Rate 28 [facility] Comment:Chronic Kidney Disea se: Estimated GFR < 60 mL/min/1.74v8Uxyjpo Kidney Disease: Estimated GFR < 15 mL/min/1.73m2 Glucose 394(HH) 60 - 115 mg/dL [facility] Comment:Critical value for t est(s): GLUR Results called to and readback by: RASHEED Person calling: RAJAT Date: 08/22/24Time: 1857 Calcium 7.9(L) 8.4 - 10.2 mg/dL [facility] 08/22/2024 6:33 PM EST 08/22/2024 6:37 PM EST Generic External Data Provider LAB BLOOD ORDERAB LES Final Result Performing Organization Address [facility] Co de Phone Number [facility] [address] [place] [phone] * Lactic Acid (08/22/2024 6:33 PM EST) Lactic Acid 1.9 0.5 - 2.0 mmol/L [facility] 08/22/2024 6:33 PM EST 08/22/2024 6:37 PM EST Generic External Data Provider LAB BLOOD ORDERAB LES Final Result Performing Organization Address [facility] de Phone Number [facility] [address] [place] [phone] * XR Chest 2 Views (08/22/2024 5:51 PM EST) Anatomical Region Laterality Modality Chest Radiographic Franca ging 08/22/2024 5:51 PM EST Narrative 08/22/2024 5:53 PM EST ? [facility] ?[address] ?[place] [address] ?XRay Report ? Signed ? Patient: Sonido Cisneros,Mary Lou Z ?MR#: [id number] ?? [id number] ? : 1950 ?Acct:[id number] ? Age/Sex: 74 / F ?ADM Date: 01/14/25 ? Loc: HO.ED ? Attending Dr: ? Ordering Physician: Joel Becker DO ?? Date of Service: 08/22/24 ?? Procedure(s): XR chest 2V ?? Accession Number(s): [id number] ? cc: Amanda Watkins MD; Joel Becker DO ? CLINICAL HISTORY: weakness ? 2 view chest x-ray ? Comparison: CR/SR - XR CHEST 1V - 08/02/24 15:11 EST ? Findings: ?? No consolidation, pleural effusion or pneumothorax. ?? Heart size is accentuated by lordotic projection and suboptimal ?? inspiratory effort. ?? No acute fracture. ? IMPRESSION: ?? 1. Hypoventilation. ?? 2. No lobar consolidation, large pleural effusion or overt CHF. ? This document has been electronically signed by: Danyelle Bills, DO on ?? 08/22/2024 17:51:42 ? Dictated By: ?Danyelle Bills MD ? Signed By: ?<Electronically signed by Danyelle Bills MD in OV> ?08/22/24 1752 ? DD/ 1751 ? TD/TT: 08/22/24 175 ? Search Analyst: ? Procedure Note Nancie Pressley - 08/22/2024 [place] [address] XRay Report Signed Patient: Mary Lou Godwin ZMR#: [id number] : 9Acct:[id number] Age/Sex: 74 / FADM Date: 08/22/24 Loc: HO.ED Attending Dr: Ordering Physician: Joel Becker DO Date of Service: 08/22/24 Procedure(s): XR chest 2V Accession Number(s): [id number] cc: Amanda Watkins MD; Joel Becker DO CLINICAL HISTORY: weakness 2 view chest x-ray Comparison: CR/SR - XR CHEST 1V - 08/02/24 15:11 EST Findings: No consolidation, pleural effusion or pneumothorax. Heart size is accentuated by lordotic projection and suboptimal inspiratory effort. No acute fracture. IMPRESSION: 1. Hypoventilation. 2. No lobar consolidation, large pleural effusion or overt CHF. This document has been electronically signed by: Danyelle Bills DO on 08/22/2024 17:51:42 Dictated By: Danyelle Bills MD Signed By: <Electronically signed by Danyelle Bills MD in OV> 08/22/241751 DD/ 50 TD/TT: 08/22/241750 Search Analyst: us [facility] External Provider IMG XR PROCEDURES Final Result * (ABNORMAL) Glucose, Whole Blood (08/22/2024 5:09 PM EST) Glucose, Whole Blood 424(HH) 60 - 115 mg/dL [facility] Comment:METER #: [id number] 08/22/2024 5:09 PM EST 08/22/2024 5:12 PM EST Generic External Data Provider LAB BLOOD ORDERAB LES Final Result Performing Organization Address City/State/[facility] Co de Phone Number [facility] [address] [place] [phone] * (ABNORMAL) Basic Metabolic Panel (08/22/2024 12:56 PM EST) Pathologist [facility] Sodium 135 135 - 145 mmol/L [facility] Potassium 4.8 3.3 - 5.1 mmol/L [facility] Chloride 94(L) 96 - 108 mmol/L [facility] Carbon Dioxide 31(H) 22 - 29 mmol/L [facility] Anion Gap 15 12 - 20 [facility] Urea Nitrogen (BUN) 38(H) 9 - 16 mg/dL [facility] Creatinine, Serum 1.94(H) 0.5 - 1.4 mg/dL [facility] Estimated Glomerular Filt Rate 25 [facility] Comment:Chronic Kidney Disea se: Estimated GFR < 60 mL/min/1.15z9Psyaca Kidney Disease: Estimated GFR < 15 mL/min/1.73m2 Glucose 555(HH) 60 - 115 mg/dL [facility] Comment:Critical value for Beau REINA: Results called to and read argentinay:DANYELLE Yanez Person calling:BULMARO Date: 08-22-24 Time:1411 Calcium 8.4 8.4 - 10.2 mg/dL [facility] 08/22/2024 12:5 6 PM EST 08/22/2024 1:33 PM EST us Amanda Myers MD LAB BLOOD ORDERABLES Final Result [facility] [address] [place] [phone] documented in this encounter Visit Diagnoses Not on filedocumented in this encounter Additional Health Concerns Assessment Noted Time PHQ-9 Depression Total Score: 10 024 3:23 PM EDT documented as of this encounter Care Teams Professor Of Voice Relationship Specialty Start Date End Date Amanda Watkins MD [address] [place] [address] PCP - General Family Medicine 04/07/19 Hiro Ram FNP [address] [place] [address] Nurse Practitioner Family Medicine 07/06/23 [facility] 08/10/24 documented as of this encounter
--- OUTSIDE RECORDS SUMMARY | 2024-09-01 15:48 | XMS_ITS | Encounter Summary ---
Author Organization [facility] Address [address] [facility] [address] [place] [address] Phone Care Team Providers Care Bilingual School Psychologist Name Role Phone Amanda Watkins MD Primary Care Provide r Encounter Details Date Type Department Care Team (Late Contact Info) Description 08/11/2024 Office Communication [facility] [address] [phone] Rose Rubio [address] [address] Social History Tobacco Use Types Packs/Day Years Used Date Smoking Tobacco: Never Alcohol Use Standard Drinks/Week Comments Never 0 (1 standard drink = 0.6 oz pur e alcohol) Comments Unknown Sex and Gender Information Value Date Recorded Sex Assigned at Not on file Legal Sex Female 4:56 PM EST Gender Identity Not on file Sexual Orientation Not on file documented as of this encounter Plan of Treatment Upcoming Encounters Date Type Department Care Team (Late Contact Info) Description 09/07/2024 2:15 PM EST Office Visit [facility] [address] [place] [address] Tl Ibarra MD [address] [facility] [address] [place] [address] documented as of this encounter Visit Diagnoses Not on filedocumented in this encounter Care Teams Bilingual School Psychologist Relationship Specialty Start Date End Date Amanda Watknis MD [address] [facility] [address] [place] [address] PCP - General Internal Medicine 03/01/23 documented as of this encounter
--- OUTSIDE RECORDS SUMMARY | 2024-09-01 15:48 | XMS_ITS | Clinical Summary ---
Author Organization [facility] Address [address] [facility] [address] [place] [address] Care Team Providers Care Grand Scribe Name Role Phone Amanda Watkins MD Primary Care Provide r Hiro Ram Unavailable Unavailable Allergies Active Allergy Reactions Criticality Noted Date Comments Codeine Unknown 11/18/2022 Medications * This document contains information received from the source organization and may not represent a complete record from that organization. albuterol (2.5 MG/3ML) 0.083% nebulizer solution inhale 3 milliliter by nebulization route every 6 hours 018 Active albuterol (ProAir HFA) 108 (90 Base) MCG/ACT inhaler inhale 2 puff by inhalation route every 4 - 6 hours as needed 021 Active Dextrose, Diabetic Use, (glucose) 1 g chewable tablet chew 1 tablet as needed at first sign of hypoglycemia, may repeat after 10 minutes if symptoms persist 018 Active naloxone (Narcan) 4 mg/0.1 mL nasal spray spray 0.1 milliliter by intranasal route in 1 nostril may repeat dose every 2-3 minutes as needed alternating nostrils with each dose 021 Active nitroglycerin (Nitrostat) 0.3 MG SL tablet DISSOLVE 1 TABLET UNDER THE TONGUE EVERY 5 MINUTES NEEDED FOR CHEST PAIN. CALL 911 IF NO RELIEF. DO NOT EXCEED 3 TABLETS IN 15 MINUTES 100 tablet 1 023 Active insulin syringe-needle U-100 (UltiCare Insulin Syringe) 31G X 16 1 mL miscIndications: Type 2 diabetes mellitus with other specified complication, with long-term current use of insulin (CMS/HCC) USE DAILY WITH INSULIN 100 each 11 Active omeprazole (PriLOSEC) [address] capsuleIndicatio ns:Epigastric pain Take 1 capsule (40 mg) by mouth before breakfast. Do not crush or chew. 30 capsule 11 024 2024 Active glucose blood (FreeStyle Precision Enrique Test) test stripIndications :Type 2 diabetes mellitus with other specified complication, with long-term current use of insulin (CMS/HCC) Use to test blood sugar 3 times daily 100 each 12 024 2024 Active Alcohol Swabs (Alcohol Prep) 70 % pads USE FOUR TIMES DAILY DIRECTED 100 each 11 Active aspirin (Aspirin Low Dose) 81 MG EC tabletIndication s:Atrial fibrillation, unspecified type (CMS/HCC) Take 1 tablet (81 mg) by mouth at bedtime. 90 tablet 3 024 Active hydrOXYzine HCl (Atarax) 25 MG tablet Take 1 tablet (25 mg) by mouth every 8 (eight) hours if needed for anxiety. 120 tablet 2 024 Active traZODone (Desyrel) 150 MG tabletIndication s:Recurrent major depressive episodes, mild (CMS/HCC) Take 1 tablet (150 mg) by mouth at bedtime. 90 tablet 2 024 Active atorvastatin (Lipitor) 80 MG tablet TAKE 1 TABLET BY MOUTH EVERY EVENING 90 tablet 1 024 Active DULoxetine (Cymbalta) [address] capsule Take 1 capsule by mouth Once per day. Active gabapentin (Neurontin) 100 MG capsule Take 1 capsule (100 mg) by mouth 3 times daily. 90 capsule 3 024 2024 Active Oyster Shell Calcium 500 MG tablet TAKE 1 TABLET BY MOUTH TWICE DAILY IN THE MORNING AND IN THE EVENING 180 tablet 1 024 Active Eliquis 5 MG tabletIndication s:Atrial fibrillation, unspecified type (CMS/HCC) TAKE 1 TABLET BY MOUTH TWICE DAILY IN THE MORNING AND IN THE EVENING 60 tablet 2 Active FREESTYLE LITE test stripIndications :Type 2 diabetes mellitus with hyperglycemia, with long-term current use of insulin (CMS/[facility]) Use to test blood sugar 3 times daily 100 each 12 024 2024 Active Lancets miscIndications: Type 2 diabetes mellitus with hyperglycemia, with long-term current use of insulin ([facility]) Use to test blood sugar 3 times daily 100 each 2 Active Blood Glucose Monitoring Suppl (FreeStyle [place] Lite) w/Device kitIndications:T ype 2 diabetes mellitus with hyperglycemia, with long-term current use of insulin ([facility]) Use to test blood sugar 3 times daily 1 kit Active Continuous Glucose Sensor (FreeStyle Mickey 2 Sensor) miscIndications: Type 2 diabetes mellitus with other specified complication, with long-term current use of insulin ([facility]) Apply 1 sensor every 14 days 2 each 2 Active levothyroxine (Synthroid, Levoxyl) 50 MCG tabletIndication s:Acquired hypothyroidism TAKE 1 TABLET BY MOUTH EVERY MORNING 30 tablet 5 024 Active oxyCODONE-acetam inophen (Percocet) 5-325 MG tabletIndication s:Chronic bilateral low back pain with bilateral sciatica TAKE 1 TABLET BY MOUTH EVERY 6 HOURS NEEDED FOR SEVERE PAIN FOR UP TO 28 DAYS 112 tablet 024 Active amLODIPine (Norvasc) 5 MG tablet Take 1 tablet (5 mg) by mouth Once per day. 30 tablet 3 025 Active torsemide (Demadex) 20 MG tablet Take 1 tablet (20 mg) by mouth Once per day. 30 tablet 3 025 Active Nyamyc 566123 UNIT/GM powder Apply 1 Application. topically 2 times daily. Active Continuous Glucose Elevator Builder (FreeStyle Mickey 2 [place]) deviceIndication s:Type 2 diabetes mellitus with other specified complication, with long-term current use of insulin ([facility]) Scan sensor every 8 hours 1 each Active calamine-zinc oxide 8-8 % lotion APPLY TO THE AFFECTED AREA(S) TOPICALLY TWICE DAILY NEEDED FOR ITCHING Active loratadine (Claritin) 10 MG tablet Take 1 tablet by mouth Once per day. 025 Active melatonin 3 MG tablet Take 1 tablet by mouth at bedtime. 025 Active Lokelma 10 g packet DISSOLVE 1 PACKET DIRECTED AND TAKE BY MOUTH EVERY WEDNESDAY, WEDNESDAY, AND WEDNESDAY Active acetaminophen (Acetaminophen 8 Hour) 650 MG ER tablet Take 650 mg by mouth every 8 (eight) hours if needed for mild pain. Do not crush, chew, or split. Active insulin glargine (Lantus) 100 UNIT/ML injection Inject 50 Units under the skin at bedtime. Active Dulaglutide (Trulicity) 0.75 MG/0.5ML solution auto-injectorInd ications:Type 2 diabetes mellitus with hyperglycemia, with long-term current use of insulin ([facility]) Inject 0.75 mg under the skin 1 (one) time per week. 2 mL 2 025 Active Ketotifen Fumarate 0.035 % solutionIndicati ons:Allergic conjunctivitis of both eyes Administer 1 drop into affected eye(s) every 12 (twelve) hours if needed (if needed). 10 mL 1 025 Active lactulose (Chronulac) 10 GM/15ML solutionIndicati ons:Other constipation Take 15 mL (10 g) by mouth Once per day for 10 days. 150 mL 025 2024 Active Continuous Blood Gluc Elevator Builder (InCarda TherapeuticsStyle Mickey 2 [place]) deviceIndication s:Type 2 diabetes mellitus with other specified complication, with long-term current use of insulin ([facility]) Scan sensor every 8 hours 1 each 024 2024 Discontinued(R eorder (will not trigger notification to Pharmacy)) amiodarone (Pacerone) 200 MG tablet Take 200 mg by mouth in the morning. 024 2024 Discontinued(M ed list cleanup (will not trigger notification to Pharmacy)) Farxiga 10 MG Take 10 mg by mouth in the morning. 2024 Discontinued(D iscontinued by another clinician) triamcinolone (Kenalog) 0.1 % creamIndications :Venous stasis dermatitis Apply topically if needed in the morning and at bedtime (pain and swelling). 30 g 2 024 2024 Discontinued(M ed list cleanup (will not trigger notification to Pharmacy)) Santyl 250 UNIT/GM ointment Apply 1 Application. topically Once per day. 024 2024 Discontinued(M ed list cleanup (will not trigger notification to Pharmacy)) oxyCODONE-acetam inophen (Percocet) 5-325 MG tabletIndication s:Chronic bilateral low back pain with bilateral sciatica Take 1 tablet by mouth every 6 (six) hours if needed for severe pain for up to 28 days. 112 tablet 024 2023 Discontinued metoprolol succinate XL (Toprol-XL) 50 MG 24 hr tablet Take 1 tablet by mouth in the morning. 024 2024 Discontinued(M ed list cleanup (will not trigger notification to Pharmacy)) torsemide (Demadex) 20 MG tablet Take 1 tablet by mouth Once per day. 2024 Discontinued(R eorder (will not trigger notification to Pharmacy)) amLODIPine (Norvasc) 5 MG tablet Take 1 tablet by mouth Once per day. 2024 Discontinued(R eorder (will not trigger notification to Pharmacy)) acetaminophen (Tylenol) 500 MG tablet Take 2 tablets by mouth if needed in the morning, at noon, and at bedtime for mild pain. 2024 Discontinued(M ed list cleanup (will not trigger notification to Pharmacy)) insulin glargine (Lantus) 100 UNIT/ML injectionIndicat ions:Type 2 diabetes mellitus with other specified complication, with long-term current use of insulin ([facility]) INJECT 60 UNITS SUBCUTANEOUSLY EVERY MORNING 10 mL 2 024 2024 Discontinued(M ed list cleanup (will not trigger notification to Pharmacy)) Continuous Glucose Elevator Builder (FreeStyle Mickey 2 [place]) deviceIndication s:Type 2 diabetes mellitus with hyperglycemia, with long-term current use of insulin ([facility]) Scan sensor every 8 hours 1 each 2024 Discontinued Continuous Glucose Sensor (FreeStyle Mickey 2 Sensor) miscIndications: Type 2 diabetes mellitus with hyperglycemia, with long-term current use of insulin ([facility]) Apply 1 sensor every 14 days 2 each 2 09/01/ 2025 Discontinued glucose blood (FreeStyle Precision Enrique Test) test stripIndications :Type 2 diabetes mellitus with hyperglycemia, with long-term current use of insulin ([facility]) Use to test blood sugar 3 times daily 100 each 12 025 2024 Discontinued Active Problems Problem Noted Date Diagnosed Date Type 2 diabetes mellitus wit h hyperglycemia, with long-term current use of insulin 09/01/2024 Chronic diastolic congestive heart failure 09/01 Allergic conjunctivitis of both eyes 09/01/2024 Other constipation 09/01/2024 Mixed stress and urge urinary incontinence 05/19 Stage 3b chronic kidney disease 05/02/2024 Arthritis 04/24/2024 Bronchitis 04/24/2024 Obesity 04/24/2024 Atrial fibrillation 04/08/2024 Congestive heart failure 04/08/2024 Gastroesophageal reflux disease 04/08/2024 Opioid dependence 04/08/2024 Retention of urine 04/08/2024 Hypothyroidism 04/08/2024 Depressive disorder 04/08/2024 Hypertensive disorder 04/08/2024 Asthma 04/08/2024 Obstructive sleep apnea syndrome 04/08/2024 Diabetes mellitus 04/08/2024 Arterial insufficiency 04/08/2024 Exposure to COVID-19 virus 03/06/2024 Venous stasis dermatitis 03/06/2024 Assessment & Plan (03/06/2024 2:40 PM EDT): Apply triamcinolone BID no more than 2 weeks Apply Vaseline BID Use compression bandages Elevate legs Referrals done today Venous insufficiency 03/06/2024 ANILA (obstructive sleep apnea) 12/06/2023 Assessment & Plan (12/06/2023 2:11 PM EDT): I will try to localized her CPAP vendor so that machine is instal and instructions are given Lumbar radiculopathy, chronic 12/06/2023 Assessment & Plan (03/06/2024 2:43 PM EDT): C/w current PRN pain medications Pain management referral will be printed Hospital bed prescription will be generated Chronic bilateral low back pain with bilateral s ciatica 12/06/2023 Assessment & Plan (12/06/2023 2:13 PM EDT): I will follow HDF instructions and I will change her percocet form 10/325mg BID to 5/325mg 4 times daily I think patient will benefit from referral to pain management Cellulitis 10/25/2023 Assessment & Plan (10/27/2023 10:50 AM EDT): ED precautions reviewed if erythema progress, if fever, malaise... I advise for her to go to the emergency room Vaginal itching 10/25/2023 Acquired hypothyroidism 10/25/2023 Assessment & Plan (10/27/2023 10:49 AM EDT): I will start her on levothyroxine 25mcg in light of her age and underline heart condition Epigastric pain 09/22/2023 Assessment & Plan (09/22/2023 3:26 PM EST): I advise patient to avoid NSAIDs, spicy and acid food, I advise to eat at the same time every day, I advise to elevate the head of the bed and take medications as prescribe Omeprazole 40mg in the morning H pylori test GI referral Excessive cerumen in both ear canals 09/22/2023 Lower extremity edema 06/22/2023 Moderate asthma 06/22/2023 Dyspnea on exertion 06/22/2023 Assessment & Plan (06/22/2023 4:40 PM EST): Patient is being follow closely by cardiology Test is schedule for 06/25/23 I will start her on lasix until cardiology sees her again, I advise to monitor her weight (BMP stable, BNP elevated) C/w metoprolol and elequis for a fib Osteoporosis 03/01/2023 Essential (primary) hypertension 03/01/2023 Anxiety attack 11/18/2022 Assessment & Plan (11/18/2022 3:48 PM EDT): As above Knee pain 11/18/2022 Overview (11/08/2023): Last Assessment & Plan: MRI ordered today referral to orthopedics Acetaminophen arthritis and voltaren gel added today Abnormal gait 11/18/2022 Overview (11/08/2023): Last Assessment & Plan: Wheelchair to be prescribed Assessment & Plan (03/06/2024 2:42 PM EDT): Hospital bed prescription will be generated Assessment & Plan (12/24/2022 4:19 PM EDT): Wheelchair to be prescribed Assessment & Plan (11/18/2022 3:48 PM EDT): Wheelchair will be prescribed Pain in left knee 11/18/2022 Assessment & Plan (11/18/2022 3:50 PM EDT): MRI ordered today referral to orthopedics Acetaminophen arthritis and voltaren gel added today Agoraphobia with panic attacks 10/06/2018 Generalized anxiety disorder 10/06/2018 Varicose veins of lower extremity 10/06/2018 Ingrowing toenail 08/17/2018 Anxiety 08/10/2018 Injury of face 01/05/2018 Pain in left arm 01/05/2018 Candidiasis of vagina 12/24/2017 Cough 12/24/2017 Urinary tract infectious disease 09/30/2017 Coronary atherosclerosis 07/16/2016 Hyperlipidemia 07/16/2016 Onychomycosis of toenail 07/16/2016 Backache 04/07/2013 Depression with anxiety 03/24/2013 Assessment & Plan (01/13/2024 5:05 PM EDT): She had been stable and doing well with Paxil 40 mg daily and Trazodone 100 mg at bedtime, with Hydroxyzine 25 mg to take at first sign of panic attack. Today she c/o poor sleep and anxiety attacks, but it appears she may be missing the prn Hydroxyzine. Will increase Trazodone to 150 mg at bedtime. It was previously explained to her that benzodiazepines such as Lorazepam are not recommended along with opiates (which she takes Oxycodone 10 mg BID) with significant risk of falls, and respiratory suppression. Since this provider will be retiring, patient will be transferred to new [facility] psychiatric provider. Patient is aware that appointments will be via televisit. Any issues or concerns contact [facility]. All her questions were answered and I have wished her well. She agrees with the plan. Assessment & Plan (12/06/2023 2:14 PM EDT): Patient today comes with her daughter in good spirit c/w same medication regiment and c/w therapist Assessment & Plan (07/19/2023 1:08 PM EST): She continues doing well with Paxil 40 mg daily and Trazodone 100 mg at bedtime, with Hydroxyzine 25 mg to take at first sign of panic attack. It was previously explained to her that benzodiazepines such as Lorazepam are not recommended along with opiates (which she takes Oxycodone 10 mg BID) with significant risk of falls, and respiratory suppression. Today 07/19/2023 pt was advised that this provider would be retiring in approx 1/2 year, but we would make every effort to ensure smooth continuity of care. F/U with me in 2 months. She agrees with the plan. Assessment & Plan (12/24/2022 4:20 PM EDT): Continue to follow with Hiro Ram Assessment & Plan (12/14/2022 3:04 PM EDT): She reports generally good response to Paxil 40 mg daily and Trazodone 100 mg at bedtime, and will continue. For occasional panic attacks will have Hydroxyzine 25 mg to take at first sign of panic attack. It was previously explained to her that benzodiazepines such as Lorazepam are not recommended along with opiates (which she takes Oxycodone 10 mg BID) with significant risk of falls, and respiratory suppression. F/U with me in 2 months. She agrees with the plan. Hypertension 03/24/2013 Assessment & Plan (12/06/2023 2:12 PM EDT): Slightly elevated today, c/w same medications, I advise low Na diet and weight reduction Continue to follow with cardiology Assessment & Plan (06/22/2023 4:40 PM EST): - Aerobic exercise to reduce BP. Initial goal of 30 min walk 3-5x/week. Increase as tolerated. - low-sodium diet (goal: <2g/day) and heart healthy diet such as DASH to reduce BP and prevent ASCVD. - Home BP monitoring 1-2 x day with goal of <140/90. - Seek immediate medical attention for chest pain, palpitations, SOB, syncope, or sudden changes in mental status. - Do not change or discontinue current prescriptions without first consulting health care provider Assessment & Plan (12/24/2022 4:18 PM EDT): - Aerobic exercise to reduce BP. Initial goal of 30 min walk 3-5x/week. Increase as tolerated. - low-sodium diet (goal: <2g/day) and heart healthy diet such as DASH to reduce BP and prevent ASCVD. - Home BP monitoring 1-2 x day with goal of <140/90. - Seek immediate medical attention for chest pain, palpitations, SOB, syncope, or sudden changes in mental status. - I added to her medications losartan 50mg daily - Do not change or discontinue current prescriptions without first consulting health care provider RTC 2 weeks with nurse then 3 months with me Assessment & Plan (11/18/2022 3:45 PM EDT): - Aerobic exercise to reduce BP. Initial goal of 30 min walk 3-5x/week. Increase as tolerated. - low-sodium diet (goal: <2g/day) and heart healthy diet such as DASH to reduce BP and prevent ASCVD. - Home BP monitoring 1-2 x day with goal of <140/90. - Seek immediate medical attention for chest pain, palpitations, SOB, syncope, or sudden changes in mental status. - Do not change or discontinue current prescriptions without first consulting health care provider -I will not change medications today BP may nbe high for several reason (patient is not adherent to medication, patient very anxious, panic attack) -I will refer patient for VNA services Mixed anxiety and depressive disorder 03/24/2013 Overview (04/24/2024): Last Assessment & Plan: Continue to follow with Hiro Ram Type 2 diabetes mellitus wit h diabetic autonomic (poly)neuropathy 01/09/2013 Overview (11/08/2023): Last Assessment & Plan: Glucose at home seems better - Lab Results Component Value Date HGBA1C 9.7 (A) 11/18/2022 HGBA1C 8.6 (H) 08/04/2021 - Lab Results Component Value Date MICROALBUR 66.2 08/04/2021 CREATININE 1.01 10/24/2022 - - Diabetic eye exam: pending - Diabetic foot exam: pending - Continue lifestyle modifications - Continue current medications - Assessment & Plan (03/06/2024 2:44 PM EDT): Diabetes is: controlled - Lab Results Component Value Date HGBA1C 7.2 (A) 03/06/2024 HGBA1C 6.5 (A) 09/22/2023 HGBA1C 6.8 (A) 06/22/2023 - Lab Results Component Value Date MICROALBUR 66.2 08/04/2021 CREATININE 1.27 01/06/2024 -Changes: none - Diabetic eye exam:up to date - Diabetic foot exam:referral done - Continue lifestyle modifications - Continue current medications - Follow up: 3 months Assessment & Plan (12/06/2023 1:58 PM EDT): Diabetes is: controlled - Lab Results Component Value Date HGBA1C 6.5 (A) 09/22/2023 HGBA1C 6.8 (A) 06/22/2023 HGBA1C 9.7 (A) 11/18/2022 - Lab Results Component Value Date MICROALBUR 66.2 08/04/2021 CREATININE 1.58 (H) 10/25/2023 -Changes: none - Diabetic eye exam:up to date - Diabetic foot exam:up to date - Continue lifestyle modifications - Continue current medications - Follow up: 3 months Assessment & Plan (10/27/2023 10:43 AM EDT): Diabetes is: controlled - Lab Results Component Value Date HGBA1C 6.5 (A) 09/22/2023 HGBA1C 6.8 (A) 06/22/2023 HGBA1C 9.7 (A) 11/18/2022 - Lab Results Component Value Date MICROALBUR 66.2 08/04/2021 CREATININE 1.58 (H) 10/25/2023 -Changes: In light of patient's episodes of hypoglycemia I will like for her to use her lantus in the morning and for her to be on continuous glucose monitoring (patient has being 3 times on glucose of 53, 52, 56 readings register on glucometer) - Diabetic eye exam:up to date - Diabetic foot exam:up to date - Continue lifestyle modifications - Follow up: 3 months Assessment & Plan (09/22/2023 3:27 PM EST): Diabetes is: controlled - Lab Results Component Value Date HGBA1C 6.5 (A) 09/22/2023 HGBA1C 6.8 (A) 06/22/2023 HGBA1C 9.7 (A) 11/18/2022 - Lab Results Component Value Date MICROALBUR 66.2 08/04/2021 CREATININE 1.42 (H) 07/30/2023 -Changes: none - Diabetic eye exam: referral today - Diabetic foot exam: referral today - Continue lifestyle modifications - Continue current medications - Follow up: 3 months Assessment & Plan (06/22/2023 4:41 PM EST): - Lab Results Component Value Date HGBA1C 6.8 (A) 06/22/2023 HGBA1C 9.7 (A) 11/18/2022 HGBA1C 8.6 (H) 08/04/2021 - Lab Results Component Value Date MICROALBUR 66.2 08/04/2021 CREATININE 1.36 05/31/2023 : - Continue lifestyle modifications - Continue current medications - Assessment & Plan (12/24/2022 4:19 PM EDT): Glucose at home seems better - Lab Results Component Value Date HGBA1C 9.7 (A) 11/18/2022 HGBA1C 8.6 (H) 08/04/2021 - Lab Results Component Value Date MICROALBUR 66.2 08/04/2021 CREATININE 1.01 10/24/2022 - - Diabetic eye exam: pending - Diabetic foot exam: pending - Continue lifestyle modifications - Continue current medications - Assessment & Plan (11/18/2022 3:47 PM EDT): - Lab Results Component Value Date HGBA1C 8.6 (H) 08/04/2021 - Lab Results Component Value Date MICROALBUR 66.2 08/04/2021 CREATININE 1.01 10/24/2022 - Diabetic eye exam: pending - Diabetic foot exam: pending -extensive counseling about healthy diet and excersise -patient will be refer to skip operator - Continue current medications, I can not make changes until I am sure patient is adherent to her medications, I will refer her for VNA services RTc 1 month Resolved Problems Problem Noted Date Diagnosed Date Resolved Date Recurrent major depressive episodes, mild 09/30/2017 12/14/2022 Assessment & Plan (11/18/2022 3:48 PM EDT): -[facility] called today -I will reduce trazodone dose to 100mg at bed time - prescribed only 5 tablet of lorazepam to be taken in case of panic attacks to aovid ED visits Encounters Date Type Department Care Team Description 09/01/2024 1:00 PM EST Office Visit [facility] MEDICINE [address] [place] [phone] Amanda Watkins MD Type 2 diabetes mellitus with hyperglycemia, with long-term current use of insulin ([facility]) (Primary Dx); Chronic diastolic congestive heart failure ([facility]); Acquired hypothyroidism; Primary hypertension; Allergic conjunctivitis of both eyes; Other constipation 09/01/2024 Travel 08/31/2024 Telephone [facility] MEDICINE [address] [place] [phone] Amanda Watkins MD Durable Medical Equipment (L&C Form: Briefs and Underpads) 08/31/2024 Telephone [facility] [place] [place] [phone] Kayley Alanis, RN SUPPORT MERCH[employer] Forms 08/25/2024 Telephone [facility] [place] [phone] Sia Leon PharmD 08/22/2024 Orders Only [facility] [place] [address] Amanda Watkins MD 08/22/2024 Telephone [facility] MEDICINE [address] [place] [phone] Amanda Watkins MD CRITICAL RESULT 08/17/2024 Telephone [facility] MEDICINE [address] [place] [phone] Amanda Watkins MD Care Coordination (Home Care Agency ) 08/16/2024 Telephone [facility] [place] [address] Temitope Natarajan RN HDF appointment 08/16/2024 Telephone [facility] MEDICINE [address] [place] [phone] Amanda Watkins MD No Show 08/16/2024 Patient Outreach [address] [phone] Amanda Watkins MD Transition Of Care (Tcm) (HDF- scheduled and SDOH screening completed on 10/15/2023) 08/16/2024 Telephone [facility] [place] [phone] Amanda Watkins MD [facility] Follow-up 08/15/2024 Refill [facility] [place] [address] Temitope Natarajan, PHILLIP Type 2 diabetes mellitus with other specified complication, with long-term current use of insulin ([facility]) 08/14/2024 Telephone [facility] [place] [address] Lacey Quesada MD 08/10/2024 10:00 AM EST Telemedicine [facility] [address] [place] [address] Vilma Gilbert, PharmEmily Type 2 diabetes mellitus with hyperglycemia, with long-term current use of insulin (CMS/[facility]) (Primary Dx); Essential (primary) hypertension; Stage 3b chronic kidney disease (CMS/HCC) 08/10/2024 Patient Outreach [facility] [address] [place] [address] Amanda Watkins MD Pre-visit Planning ((Unable to reach for PVP screening, LVM)) 08/10/2024 Refill [facility] [address] [place] [address] Vilma Gilbert PharmD 08/08/2024 Refill [facility] [address], [place] [phone] Amanda Watkins MD Chronic bilateral low back pain with bilateral sciatica 08/04/[address] [address] Amanda Watkins MD Call Back Request 08/03/[address] [address] Arcelia Crocker [place] Durable Medical Equipment 08/03/[address] [address] Heather Cain RNregional director of finance (M approval) 08/02/2024 Orders Only GENERIC EXTERNAL DATA DEPARTMENT Provider, Generic External Data 07/31/[address] [address] Kayley Alanis RN 07/28/2024 Travel 07/28/[address] [address] Kayley Alanis, RN Recommend Tele Tier 2 07/27/[address] [address] Arcelia Crocker [place] Durable Medical Equipment 07/26/[address] [address] Amanda Watkins MD Durable Medical Equipment 07/25/2024 Telephone [facility] [address] [place] [address] Amanda Watkins MD order; Durable Medical Equipment 07/24/2024 Telephone [facility] [address] [place] [address] Wilfrido Durbin MA DME from [facility] 07/23/2024 Refill [facility] [address] [place] [address] Amanda Watkins MD Acquired hypothyroidism 07/21/2024 Telephone [facility] [address] [place] [address] Arcelia Crocker [place] Durable Medical Equipment 07/13/2024 Telephone [facility] [address] [place] [address] Ann Kulkarni, DO No Show 07/12/2024 Telephone [facility] [address] [place] [address] Arcelia Crocker [place] Durable Medical Equipment 07/10/2024 Telephone [facility] [address] [place] [address] Amanda Watkins MD Nurse Triage 07/10/2024 Refill [facility] [address] [place] [address] Amanda Watkins MD Type 2 diabetes mellitus with other specified complication, with long-term current use of insulin ([facility]) 07/06/2024 Orders Only GENERIC EXTERNAL DATA DEPARTMENT Provider, Generic External Data 07/05/2024 Telephone [facility] WALK-IN CENTER [address] [place] [address] Arcelia Crocker [place] Durable Medical Equipment 07/05/2024 Refill [facility] [address] [place] [address] Amanda Watkins MD 07/04/2024 Telephone [facility] [address] [place] [address] Amanda Watkins MD callback requested 2024 Telephone [facility] [address] [place] [address] Temitope Natarajan, RN PA sensors 2024 Telephone [facility] [address] [place] [address] Arcelia Crocker [place] Durable Medical Equipment 06/28/2024 Refill [facility] MED & PEDS [address] [place] [address] Amanda Watkins MD Chronic bilateral low back pain with bilateral sciatica 06/28/2024 Telephone [facility] [address] [place] [address] Amanda Watkins MD Durable Medical Equipment 06/28/2024 Telephone [facility] [address] [place] [address] Amanda Watkins MD Medication 06/28/2024 Telephone [facility] [address] [place] [address] Amanda Watkins MD Referral 06/27/2024 Orders Only [facility] MED[facility] [address] [place] [address] Amanda Watkins MD 06/21/[address] [address] Amanda Watkins MD FYI 06/21/2024 Telephone [facility] MEDICINE [address] [place] [address] Amanda Watkins MD Nurse Triage 06/15/2024 Refill [facility] [address] [place] [address] Amanda Watkins MD Atrial fibrillation, unspecified type (CMS/HCC) 06/11/2024 Orders Only GENERIC EXTERNAL DATA DEPARTMENT Provider, Generic External Data 06/08/2024 Telephone [facility] [address] [place] [address] Heahter Cain, PHILLIP Durable Medical Equipment 06/06/2024 Refill [facility] [address] [place] [address] Amanda Watkins MD from Last 3 Months Immunizations Name Administration Dates Next Due Hep B, adult 06/07/2007,11/01/2006,03/12/2006 Influenza injectable quadriv alent IIV4 with preservative 09/30/2017,08/17/2016,05/07/2015 Influenza injectable quadriv alent preservative free 07/08/2018 Influenza, Split (incl. kaitlyn fied surface antigen) 05/11/2012 Influenza, seasonal, injecta ble, preservative free 06/23/2024 MMR 03/12/2006 Pneumococcal Conjugate PCV 13 07/16/2016 Pneumococcal Conjugate PCV 20 12/06/2023 Pneumococcal Polysaccharide PPSV23 02/17/2013, TD (adult), 2 Lf tetanus tox oid, preservative free, adsorbed 03/12/2006 Zoster, live 05/31/2015 Social History Tobacco Use Types Packs/Day Years Used Date Smoking Tobacco: Never Passive Smoke Exposure: Never Smokeless Tobacco: Never Tobacco Cessation:Counseling Given: Not Answered [...] Orientation Straight 06/08/2022 10 :18 AM EDT Last Filed Vital Signs Vital Sign Reading [...] Mass Index 43.91 09/01/2024 1:17 PM EST Plan of Treatment Upcoming Encounters Date Type Department Care Team (Late st Contact Info) Description 09/06/2024 10:00 AM EST Clinical Support [facility] MED[facility] [address] [place] [address] 09/07/2024 2:00 PM EST Telemedicine [facility] MEDICINE [address] [place] [address] Kayley Alanis, PHILLIP 09/14/2024 11:00 AM EST Telemedicine [facility] [address] [place] [address] 10/24/2024 2:00 PM EDT Office Visit [facility] OPTOMETRY [address] [place] [address] Elisa Cummings, OD [address] [place] [address] Health Maintenance Due Date Last Done Comments CT Colonography 1950 Colonoscopy 1950 Colorectal Cancer Screening 1950 FIT DNA/Cologuard 1950 FIT 1950 FOBT 1950 Sigmoidoscopy 1950 Diabetes: Foot Exam 1959 Eye Exam 1959 Alcohol/Substance Use Screening 1961 Hepatitis C Screening 1967 DTaP/Tdap/Td Vaccines (1 - Tdap) 03/13/2006 03/12/2006 Zoster Vaccines (2 of 3) 07/26/2015 05/31/2015 Diabetes: Urine Protein Screening 08/04/2022 08/04/2021 Lipid Panel 08/04/2022 08/04/2021 COVID-19 Vaccine ( season) 2024 07/24/2021, 12/11/2020, 10/03/2020 RSV Patients and Patients Aged 60 years or older (1 - 1-dose 75+ series) 2024 SDOH Screening 10/14/2024 10/15/2023 Diabetes: Hemoglobin A1C 11/30/2024 025, 03/06/2024, 09/22/2023, Additional history exists Depression Screening 09/01/2025 09/01/2024, 09/01/19 Tobacco Screening 09/01/2025 09/01/2024 Hepatitis B Vaccines Completed 06/07/2007, 11/01/2006, 03/12/2006 Pneumococcal Vaccine: 65+ Years Completed 12/06/2023, 07/16/2016, 02/17/2013, Additional history exists Influenza Vaccine Completed 06/23/2024, , 09/30/2017, Additional history exists HIB Vaccines Aged Out No longer eligi ble based on patient's age to complete this topic HPV Vaccines Aged Out No longer eligi ble based on patient's age to complete this topic Hepatitis A Vaccines Aged Out No long er eligible based on patient's age to complete this topic IPV Vaccines Aged Out No longer eligi ble based on patient's age to complete this topic Meningococcal Vaccine Aged Out No roseann leonard eligible based on patient's age to complete this topic RSV under 20 months Aged Out No longe r eligible based on patient's age to complete this topic Rotavirus Vaccines Aged Out No longer eligible based on patient's age to complete this topic Procedures Procedure Name Priority Date/Time Associated Diagnosis Comments POCT GLYCATED HEMOGLOBIN, TOTAL Routine 09/01/2024 1:24 PM EST Type 2 diabetes mellitus with hyperglycemia, with long-term current use of insulin ([facility]) POCT GLUCOSE Routine 09/01/2024 1:23 PM EST Type 2 diabetes mellitus with hyperglycemia, with long-term current use of insulin ([facility]) GLUCOSE, WHOLE BLOOD Routine 08/22/2024 6:45 PM EST BASIC METABOLIC PANEL Routine 08/22/2024 6:33 PM EST LACTIC ACID LAB USE ONLY Routine 08/22/2024 6:33 PM EST XR CHEST 2 VIEWS Routine 08/22/2024 5:51 PM EST GLUCOSE, WHOLE BLOOD Routine 08/22/2024 5:09 PM EST BASIC METABOLIC PANEL Routine 08/22/2024 12:56 PM EST DRUG MONITOR, PANEL 1, SCREEN, URINE Routine 08/02/2024 3:28 PM EST VENOUS BLOOD GAS Routine 08/02/2024 3:24 PM EST HOLD GREEN GEL Routine 08/02/2024 3:19 PM EST ETHANOL Routine 08/02/2024 3:19 PM EST PROTHROMBIN TIME-INR Routine 08/02/2024 3:19 PM EST CBC WITH AUTO DIFFERENTIAL Routine 08/02/2024 3:19 PM EST GLUCOSE, WHOLE BLOOD Routine 08/02/2024 2:47 PM EST GLUCOSE, WHOLE BLOOD Routine 07/06/2024 7:11 AM EST GLUCOSE, WHOLE BLOOD Routine 07/06/2024 6:15 AM EST BETA-HYDROXYBUTYRATE Routine 07/06/2024 2:14 AM EST COMPREHENSIVE METABOLIC PANEL Routine 07/06/2024 2:14 AM EST MR TIBIA FIBULA W AND WO CONTRAST LEFT Routine 06/19/2024 2:55 PM EST XR TIBIA FIBULA 2 VIEWS LEFT Routine 06/18/2024 11:00 AM EST XR CHEST 2 VIEWS Routine 06/11/2024 6:56 AM EST VENOUS BLOOD GAS Routine 06/11/2024 6:0 8 AM EST ALBUMIN, RANDOM URINE W/CREATININE Routine 08/04/2021 10:15 AM EST LIPID PANEL, STANDARD Routine 08/04/2021 10:15 AM EST from Last 3 Months or Most Recently Relevant to Health Maintenance Results * (ABNORMAL) POCT HGB A1C (09/01/2024 1:24 PM EST) Pathologist [facility] Hemoglobin A1C 11.6(A) 4.0 - 6.0 % QC Media Lot # [id number] Lot# Expiration Date Blood 09/01/2024 1:24 PM EST Amanda Myers MD POINT OF CARE TEST EN TER/EDIT ORDERABLES Final Result * (ABNORMAL) POCT Glucose (09/01/2024 1:23 PM EST) Pathologist [facility] Glucose Blood, POC 99,999(A) 60 - 200 mg/dL QC Media Lot # [id number] Lot# Expiration Date ,025 Blood Capillary blood specimen / Unknown 09/01/2024 1:23 PM EST us Amanda Myers MD POINT OF CARE TEST EN TER/EDIT ORDERABLES Final Result * (ABNORMAL) Glucose, Whole Blood (08/22/2024 6:45 PM EST) Only the most recent of5 resultswithin the time period is included. Glucose, Whole Blood 339(H) 60 - 115 mg/dL [facility] Comment:METER #: [id number] 08/22/2024 6:45 PM EST 08/22/2024 6:48 PM EST Generic External Data Provider LAB BLOOD ORDERAB LES Final Result Performing Organization Address City/[facility]/ZIP Co de Phone Number [facility] [address] [place] [address] [phone] * Lactic Acid (08/22/2024 6:33 PM EST) Lactic Acid 1.9 0.5 - 2.0 mmol/L [facility] 08/22/2024 6:33 PM EST 08/22/2024 6:37 PM EST Generic External Data Provider LAB BLOOD ORDERAB LES Final Result Performing Organization Address City/[facility]/ZIP Co de Phone Number [facility] [address] [place] [address] [phone] * (ABNORMAL) Basic Metabolic Panel (08/22/2024 6:33 PM EST) Only the most recent of2 resultswithin the time period is included. Sodium 140 135 - 145 mmol/L [facility] Potassium 4.8 3.3 - 5.1 mmol/L [facility] Comment:Slight Hemolysis.Int erpret result with caution. Chloride 102 96 - 108 mmol/L [facility] Carbon Dioxide 33(H) 22 - 29 mmol/L [facility] Anion Gap 10(L) 12 - 20 [facility] Urea Nitrogen (BUN) 35(H) 9 - 16 mg/dL [facility] Creatinine, Serum 1.78(H) 0.5 - 1.4 mg/dL [facility] Creatinine Clr Calc Pharmacy 32.5 [facility] Comment:Provided height and weight: 167.64 cm,99.79 kg.eGFR (calculated from the MDRD study equation) and eCrCl(calculated from the Cockcroft-Gault equation) are based ondifferent parameters and may not yield comparable results.If eCrCl result is absurd, please check patient'sheight/weight. Estimated Glomerular Filt Rate 28 [facility] Comment:Chronic Kidney Disea se: Estimated GFR < 60 mL/min/1.44k7Hfkemd Kidney Disease: Estimated GFR < 15 mL/min/1.73m2 Glucose 394(HH) 60 - 115 mg/dL [facility] Comment:Critical value for t est(s): GLUR Results called to and readback by: RASHEED Person calling: RAJAT Date: 08/22/24Time: 1857 Calcium 7.9(L) 8.4 - 10.2 mg/dL [facility] 08/22/2024 6:33 PM EST 08/22/2024 6:37 PM EST us Generic External Data Provider LAB BLOOD ORDERAB LES Final Result [facility] [address] [place] [address] [phone] * XR Chest 2 Views (08/22/2024 5:51 PM EST) Only the most recent of2 resultswithin the time period is included. Anatomical Region Laterality Modality Chest Radiographic Franca ging 08/22/2024 5:51 PM EST Narrative 08/22/2024 5:53 PM EST ? [facility] ?[address] ?[place] [address] ?XRay Report ? Signed ? Patient: Sonido Cisneros,Mary Lou Z ?MR#: M ?? [id number] ? : 1950 ?Acct:[id number] ? Age/Sex: 74 / F ?ADM Date: 01/14/25 ? Loc: HO.ED ? Attending Dr: ? Ordering Physician: Joel Becker DO ?? Date of Service: 08/22/24 ?? Procedure(s): XR chest 2V ?? Accession Number(s): [id number] ? cc: Amanda Watkins MD; Joel Becker [...] electronically signed by: Danyelle Bills DO on ?? 08/22/2024 17:51:42 ? Dictated By: ?Danyelle Bills MD ? Signed By: ?<Electronically signed by Danyelle Bills MD in OV> ?08/22/24 1752 ? DD/ 1751 ? TD/TT: 08/22/24 1751 ? Chief Meter Reader: ? Procedure Note Huan, Image - 08/22/2024 [place] [address] XRay Report Signed Patient: Mary Lou Godwin ZMR#: M [id number] : 9Acct:[id number] Age/Sex: 74 / FADM Date: 08/22/24 Loc: HO.ED Attending Dr: Ordering Physician: Joel Becker DO Date of Service: 08/22/24 Procedure(s): XR chest 2V Accession Number(s): [id number] cc: Amanda Watkins MD; Joel Becker DO [...] in OV> 08/22/241751 DD/ 50 TD/TT: 08/22/241750 Chief Meter Reader: [facility] External Provider IMG XR PROCEDURES Final Result * (ABNORMAL) Drug Monitoring, Panel 1, Screen, Urine (08/02/2024 3:28 PM EST) Opiate Screen Urine Not Detected Not Detect [facility] Comment:Opiate cut-off is 30 0 ng/mL.Positive results are unconfirmed and should not be used fornon-medical purposes. Barbiturates, Urine Not Detected Not Detect [facility] Comment:Barbiturate cut-off is 200 ng/mL.Positive results are unconfirmed and should not be used fornon-medical purposes. Phencyclidine Screen Urine Not Detected Not Detect [facility] Comment:Phencyclidine cut-of f is 25 ng/mL.Positive results are unconfirmed and should not be used fornon-medical purposes. Amphetamine Screen Urine Not Detected Not Detect [facility] Comment:Amphetamine cut-off is 1000 ng/mL.Positive results are unconfirmed and should not be used fornon-medical purposes. Benzodiazepines Screen Urine Not Detected Not Detect [facility] Comment:Benzodiazepine cut-o ff is 200 ng/mL.Positive results are unconfirmed and should not be used fornon-medical purposes. Cocaine Screen Urine Not Detected Not Detect [facility] Comment:Cocaine cut-off is 3 00 ng/mL.Positive results are unconfirmed and should not be used fornon-medical purposes. Cannabinoid Screen Urine Not Detected Not Detect [facility] Comment:Cannabinoid cut-off is 50 ng/mL.Positive results are unconfirmed and should not be used fornon-medical purposes. Methadone Screen, Urine Not Detected Not Detect ng/mL [facility] Comment:Methadone cut-off is 300 ng/mL.Positive results are unconfirmed and should not be used fornon-medical purposes. FENTANYL URINE Not Detected Not Detect [facility] Comment:Fentanyl cut-off is 1 ng/mL.Positive results are unconfirmed and should not be used fornon-medical purposes. Oxycodone Urine Screen Positive(A) Not Detect ng/mL [facility] Comment:Oxycodone cut-off is 100 ng/mL.Positive results are unconfirmed and should not be used fornon-medical purposes. Buprenorphine Screen Not Detected Not Detect ng/mL [facility] Comment:Buprenorphine cut-of f is 5 ng/mL.Positive results are unconfirmed and should not be used fornon-medical purposes. 08/02/2024 3:28 PM EST 08/02/2024 3:31 PM EST us Generic External Data Provider LAB URINE ORDERAB LES Final Result Performing Organization Address City/State/[facility] Co de Phone Number [facility] [address] [place] [phone] * (ABNORMAL) VENOUS BLOOD GAS (08/02/2024 3:24 PM EST) Only the most recent of2 resultswithin the time period is included. VBG pH 7.37 7.32 - 7.43 [facility] Comment:METER #: [id number] additional_comment: Cbzaluckj VBG PCO2 57 mmHg [facility] Comment:METER #: [id number] additional_comment: Cbzaluckj VBG PO2 56 mmHg [facility] Comment:METER #: [id number] additional_comment: Cbzaluckj VBG Base Excess 7.4 mmol/L [facility] Comment:METER #: [id number] additional_comment: Cbzaluckj VBG HCO3 33(H) 22 - 26 mmol/L [facility] Comment:METER #: [id number] additional_comment: Cbzaluckj O2 Sat, Samuel 80.0 % [facility] Comment:METER #: [id number] additional_comment: Cbzaluckj 08/02/2024 3:24 PM EST 08/02/2024 3:28 PM EST Generic External Data Provider LAB BLOOD ORDERAB LES Final Result Performing Organization Address [facility] de Phone Number [facility] [address] [place] [address] [phone] * Hold Green Gel (08/02/2024 3:19 PM EST) Hold Green Gel See Note [facility] Comment:Specimen held untest ed for 24 hours; Call to requestChemistry testing. 08/02/2024 3:19 PM EST 08/02/2024 3:23 PM EST Generic External Data Provider HISTORICAL/NON OR DERABLE LABS Final Result Performing Organization Address [facility] Phone Number [facility] [address] [place] [phone] * Ethanol (08/02/2024 3:19 PM EST) Pathologist [facility] ETHANOL (MG/DL) IN SER/PLAS <10 mg/dL [facility] Comment:Serum/plasma ethanol results are to be used formedical/treatment purposes only. 08/02/2024 3:19 PM EST 08/02/2024 3:22 PM EST Generic External Data Provider LAB BLOOD ORDERAB LES Final Result Performing Organization Address [facility] de Phone Number [facility] [address] [place] [address] [phone] * (ABNORMAL) CBC auto differential (08/02/2024 3:19 PM EST) White Blood Count 7.0 4.8 - 10.8 X10*3/uL [facility] Red Blood Count 3.49(L) 4.20 - 5.50 X10*6/uL [facility] Hemoglobin 7.4(L) 12.0 - 16.0 g/dl [facility] Hematocrit 25.3(L) 37.0 - 47.0 % [facility] Mean Corpuscular Volume 72.5(L) 80.0 - 98.0 fL [facility] Mean Corpuscular Hemoglobin 21.2(L) 27.0 - 33.0 pg [facility] Mean Corpuscular HGB Conc 29.2(L) 31.0 - 35.0 g/dl [facility] Red Cell Distribution Width 17.9(H) 11.0 - 16.0 % [facility] Platelet Count 367 160 - 400 X10*3/uL [facility] Mean Platelet Volume 10.5 9.4 - 12.3 fL [facility] Neutrophils Percent Auto 68.7 45 - 73 % [facility] Imm Gran Pct Auto 1.7(H) 0.0 - 0.4 % [facility] Lymphocytes Percent Auto 17.8(L) 20 - 40 % [facility] Monocytes Percent Auto 6.2 2 - 11 % [facility] Eosinophils Percent Auto 4.6(H) 0 - 4 % [facility] Basophils Percent Auto 1.0 0 - 2 % [facility] NRBC Pct Auto 0.9(H) 0.0 - 0.2 /100WBC [facility] Neutrophils Absolute Auto 4.8 2.0 - 8.3 x10*3/uL [facility] Imm Gran Abs Auto 0.12(H) 0.00 - 0.03 X10*3/uL [facility] Lymphocytes Absolute Auto 1.2 1.2 - 4.9 X10*3/uL [facility] Monocytes Absolute Auto 0.4 0.1 - 1.2 X10*3/uL [facility] Eosinophils Absolute Auto 0.3 0.0 - 0.4 X10*3/uL [facility] Basophils Absolute Auto 0.1 0.0 - 0.2 X10*3/uL [facility] NRBC Abs Auto 0.060(H) 0.0 - 0.012 X10*3/uL [facility] 08/02/2024 3:19 PM EST 08/02/2024 3:22 PM EST Generic External Data Provider LAB BLOOD ORDERAB LES Final Result Performing Organization Address [facility]/ZIP Co de Phone Number [facility] [address] [place] [phone] * (ABNORMAL) Prothrombin Time-INR (08/02/2024 3:19 PM EST) Prothrombin Time 19.3(H) 10.9 - 12.4 SEC [facility] INTERNATIONAL NORM RATIO 1.7(H) 0.9 - 1.1 [facility] Comment:INTERNATIONAL NORMAL IZED RATIO (INR) REFERENCE [...] ORDERAB LES Final Result Performing Organization Address [facility]/ZIP Co de Phone Number [facility] [address] [place] [phone] * Beta-Hydroxybutyrate (07/06/2024 2:14 AM EST) Beta-Hydroxybut yrate 0.09 0.02 - 0.27 mmol/L [facility] 07/06/2024 2:14 AM EST 07/06/2024 2:16 AM EST Generic External Data Provider LAB BLOOD ORDERAB LES Final Result Performing Organization Address City/[facility]/ZIP Co de Phone Number [facility] [address] [place] [phone] [phone] * (ABNORMAL) Comprehensive Metabolic Panel (07/06/2024 2:14 AM EST) Sodium 134(L) 135 - 145 mmol/L [facility] Potassium 5.0 3.3 - 5.1 mmol/L [facility] Comment:Slight Hemolysis.Int erpret result with caution. Chloride 92(L) 96 - 108 mmol/L [facility] Carbon Dioxide 32(H) 22 - 29 mmol/L [facility] Anion Gap 15 12 - 20 [facility] Urea Nitrogen (BUN) 41(H) 9 - 16 mg/dL [facility] Creatinine, Serum 2.41(H) 0.5 - 1.4 mg/dL [facility] Creatinine Clr Calc Pharmacy 23.2 [facility] Comment:Provided height and weight: 160.02 cm,103.7 kg.eGFR (calculated from the MDRD study equation) and eCrCl(calculated from the Cockcroft-Gault equation) are based ondifferent parameters and may not yield comparable results.If eCrCl result is absurd, please check patient'sheight/weight. Estimated Glomerular Filt Rate 20 [facility] Comment:Chronic Kidney Disea se: Estimated GFR < 60 mL/min/1.20e8Fdwvmk Kidney Disease: Estimated GFR < 15 mL/min/1.73m2 Glucose 451(HH) 60 - 115 mg/dL [facility] Comment:Critical value for t est(s):GLUC Results called to and readback by: GERRY Person calling: VYASRID Date: [id number] Calcium 8.2(L) 8.4 - 10.2 mg/dL [facility] Bilirubin, Total 0.3 0.0 - 1.0 mg/dL [facility] Aspartate Amino Transferase 29 5 - 31 U/L [facility] Comment:Slight Hemolysis.Int erpret result with caution. Alanine Aminotransferase 11 0 - 31 U/L [facility] Total Protein 6.3(L) 6.5 - 8.0 g/dL [facility] Albumin Level 3.0(L) 3.5 - 5.0 g/dL [facility] Alkaline Phosphatase 61 39 - 117 U/L [facility] 07/06/2024 2:14 AM EST 07/06/2024 2:16 AM EST us Generic External Data Provider LAB BLOOD ORDERAB LES Final Result [facility] [address] [facility] [place] [address] [phone] * MR Narendra Claire w/ and w/o Contrast Left (06/19/2024 2:55 PM EST) Anatomical Region Laterality Modality Lower Extremities, Lower Leg Left Mag netic Resonance 06/19/2024 2:55 PM EST Narrative 06/19/2024 5:15 PM EST ? [facility] ?[address] ?[place] [address] ? Magnetic Resonance Report ? Signed ? Patient: Mary Lou Godwin ?MR#: M ?? [id number] ? : 1950 ?Acct:[id number] ? Age/Sex: 73 / F ?ADM Date: 06/11/24 ? Loc: [facility] ?473-1 ? Attending Dr: Everett Bran MD ? Ordering Physician: Everett Bran MD ?? Date of Service: 06/19/24 ?? Procedure(s): MR Tibia LT wo/w Contrast ?? Accession Number(s): [id number] ? cc: Amanda Watkins MD; Everett Bran MD ? EXAMINATION: ?? MRI of the left tibia without and with contrast ? CLINICAL INFORMATION: ?? Osteomyelitis ?? leg wound infection. ? COMPARISON: ?? X-ray of the left tibia-fibula June 2024. X-ray of the left knee ?? April 2024 ? TECHNIQUE: ?? MRI of the left tibia without and with contrast. Contrast dose 10 mm of ?? Gadavist was given intravenously. ? FINDINGS: ?? There is some artifact and image distortion history noted along the ?? proximal distal ends of the shlrz-uf-dllc examinations including the ?? ankle and partially visualized knee joint ??. ? Possible nondisplaced tibial plateau fracture. Question edema ?? surrounding the suspected fracture line. This area is limited given the ?? artifact and image distortion because it is at the edge of the ?? aemot-ql-ltwc exam ? The marrow in the tibia otherwise appears normal. ?? No definite signal abnormality in the medial malleolus. Limited ?? evaluation of the distal fibula and ankle region related to ?? heterogeneous fat suppression. ? No definite abnormal enhancement ? Muscles/tendons: Scattered atrophy and fatty infiltration throughout ?? the muscles. ? No tendon abnormality. ? Subcutaneous soft tissues: Feathery appearing fluidlike signal ?? circumferentially about the lower leg in the subcutaneous soft tissues ?? without enhancement compatible with edema. ? No ulceration detected. ? MR/MR Tibia LT wo/w Contrast ?? IMPRESSION: ?? 1. ??Possible nondisplaced fracture of the tibial plateau. This area is ?? limited given the artifact and image distortion. Consider follow-up ?? x-ray of the left knee or CT or MRI to further assess for fracture as ?? felt clinically necessary. Fracture not clearly seen on x-ray of the ?? left tibia-fibula performed 06/18/2024 ?? 2. ??No definite abnormality in the medial malleolus. ? 3. ??No definite abnormality in the distal fibula or ankle region. ?? Limited evaluation of this area due to artifact and image distortion. ?? 4. ??Edema in the subcutaneous soft tissues. ?? 5. ??Diffuse atrophy and fatty infiltration of the muscles ? Electronically signed by: ??Oliver Awad MD ??06/19/2024 05:12 PM ?? EST RP ? Dictated By: ?Oliver Awad MD ? Signed By: ?<Electronically signed by Oliver Awad MD in OV> ?06/19/24 1712 ? DD/ 1455 ? TD/TT: 06/19/24 1530 ? Chief Meter Reader: WG ? Procedure Note Nancie Pressley - 06/20/[address] [address] Magnetic Resonance Report Signed Patient: Mary Lou Godwin ZMR#: M [id number] : 9Acct:[id number] Age/Sex: 73 / FADM Date: 06/11/24 Loc: [facility] 473-[address]: Everett Bran MD Ordering Physician: Everett Bran MD Date of Service: 06/19/24 Procedure(s): MR Tibia LT wo/w Contrast Accession Number(s): [id number] cc: Amanda Watkins MD; Everett Bran MD EXAMINATION: MRI of the left tibia without and with contrast CLINICAL INFORMATION: Osteomyelitis leg wound infection. COMPARISON: X-ray of the left tibia-fibula June 2024. X-ray of the left knee April 2024 TECHNIQUE: MRI of the left tibia without and with contrast. Contrast dose 10 mm of Gadavist was given intravenously. FINDINGS: There is some artifact and image distortion history noted along the proximal distal ends of the qjqxt-fs-dluk examinations including the ankle and partially visualized knee joint . Possible nondisplaced tibial plateau fracture. Question edema surrounding the suspected fracture line. This area is limited given the artifact and image distortion because it is at the edge of the dlrvt-hl-kqwh exam The marrow in the tibia otherwise appears normal. No definite signal abnormality in the medial malleolus. Limited evaluation of the distal fibula and ankle region related to heterogeneous fat suppression. No definite abnormal enhancement Muscles/tendons: Scattered atrophy and fatty infiltration throughout the muscles. No tendon abnormality. Subcutaneous soft tissues: Feathery appearing fluidlike signal circumferentially about the lower leg in the subcutaneous soft tissues without enhancement compatible with edema. No ulceration detected. MR/MR Tibia LT wo/w Contrast IMPRESSION: 1. Possible nondisplaced fracture of the tibial plateau. This area is limited given the artifact and image distortion. Consider follow-up x-ray of the left knee or CT or MRI to further assess for fracture as felt clinically necessary. Fracture not clearly seen on x-ray of the left tibia-fibula performed 06/18/2024 2. No definite abnormality in the medial malleolus. 3. No definite abnormality in the distal fibula or ankle region. Limited evaluation of this area due to artifact and image distortion. 4. Edema in the subcutaneous soft tissues. 5. Diffuse atrophy and fatty infiltration of the muscles Electronically signed by: Oliver Awad MD 06/19/2024 05:12 PM EST RP Dictated By: Oliver Awad MD Signed By: <Electronically signed by Oliver Awad MD inOV> 06/19/24 1712 DD/ 1455 TD/TT: 06/19/24 1530 Chief Meter Reader: RAYMUNDO [facility] External Provider IMG MRI PROCEDURES Final Result * XR Tibia Fibula 2 Views Left (06/18/2024 11:00 AM EST) Anatomical Region Laterality Modality Lower Extremities, Lower Leg Left Rad iographic Imaging 06/18/2024 11:0 0 AM EST Narrative 06/18/2024 1:38 PM EST ? [facility] ?[address] ?[place] [address] ?XRay Report ? Signed with Addenda ? Patient: Mary Lou Godwin Z ?MR#: M ?? [id number] ? : 1950 ?Acct:[id number] ? Age/Sex: 73 / F ?ADM Date: 06/11/24 ? Loc: [facility] ?473-1 ? Attending Dr: Everett Bran MD ? Ordering Physician: Everett Bran MD ?? Date of Service: 06/18/24 ?? Procedure(s): XR tibia fibula LT 2V ?? Accession Number(s): [id number] ? cc: Amanda Watkins MD; Everett Bran MD ?ADDENDUM ? ADDENDUM #1 ? Results were received by Dr Bran on 06/18/2024 at 5:33 PM. ? Electronically signed by: ??Lindsey Weinberg MD ??06/18/2024 05:33 PM EST ?? RP ? Addendum Dictated By: ?Barb ??Lenard ? Addendum Signed By: ? <Electronically signed by Barb ??Lenard in OV> ? 11/10/24 1733 ?? Addendum Cosigned By: ? DD/ /01/1100 ? TD/TT: 06/18/2406/01/1104 ? EXAMINATION: ?? XR TIBIA AND FIBULA, LEFT ? CLINICAL INFORMATION: ?? Leg wound, rule out osteo ? COMPARISON: ?? Left knee radiographs dated 04/19/2024 ? TECHNIQUE: ?? AP and lateral views of the left tibia and fibula were obtained. ? FINDINGS: ?? Possible mild periosteal reaction in the distal medial tibia at the ?? medial malleolus. No acute fracture or dislocation. Soft tissue edema ?? of the ankle. Vascular calcifications. Calcaneal spur. ? XR/XR tibia fibula LT 2V ?? IMPRESSION: ?? Possible mild periosteal reaction in the distal medial tibia at the ?? medial malleolus. Recommend MRI for further evaluation. ? Electronically signed by: ??Lindsey Weinberg MD ??06/18/2024 01:35 PM EST ?? RP ? Dictated By: ?Barb Weinberg ? Signed By: ?<Electronically signed by Barb ??Lenard in OV> ? /10 1335 ? DD/ 1100 ? TD/TT: 06/18/24 1104 ? Chief Meter Reader: ? Procedure Note Huan, Image - 06/18/[address] [address] XRay Report Signed with Tosin Patient: Mary Lou Godwin ZMR#: M [id number] : 1950cct:[id number] Age/Sex: 73 / FADM Date: 06/11/24 Loc: [facility] 473-[address]: Everett Bran MD Ordering Physician: Everett Bran MD Date of Service: 06/18/24 Procedure(s): XR tibia fibula LT 2V Accession Number(s): [id number] cc: Amanda Watkins MD; Everett Bran MD ADDENDUM ADDENDUM #1 Results were received by Dr Bran on 06/18/2024 at 5:33 PM. Electronically signed by: Lindsey Weinberg MD 06/18/2024 05:33 PM [facility] Addendum Dictated By: Barb Weinberg Addendum Signed By: <Electronically signed by Gladys in OV> 06/18/24 1733 Addendum Cosigned By: DD/ /01/1100 TD/TT: 06/18/2406/01/1104 EXAMINATION: XR TIBIA AND FIBULA, LEFT CLINICAL INFORMATION: Leg wound, rule out osteo COMPARISON: Left knee radiographs dated 04/19/2024 TECHNIQUE: AP and lateral views of the left tibia and fibula were obtained. FINDINGS: Possible mild periosteal reaction in the distal medial tibia at the medial malleolus. No acute fracture or dislocation. Soft tissue edema of the ankle. Vascular calcifications. Calcaneal spur. XR/XR tibia fibula LT 2V IMPRESSION: Possible mild periosteal reaction in the distal medial tibia at the medial malleolus. Recommend MRI for further evaluation. Electronically signed by: Lindsey Weinberg MD 06/18/2024 01:35 PM EST RP Dictated By: Barb Weinberg Signed By: <Electronically signed by Barb Weinberg in OV> 06/18/24 1335 DD/ 99 TD/TT: 06/18/241103 Chief Meter Reader: [facility] External Provider IMG XR PROCEDURES Edited Result - Final * (ABNORMAL) ALBUMIN, RANDOM URINE W/CREATININE (08/04/2021 10:15 AM EST) Microalbumin Urine 66.2 See Note: mg/dL [facility] Comment: Reference Range: ?? Reference Range Not established Verified by repeat analysis. ?? Microalb/Creat Ratio 480(H) <30 mcg/mg creat [facility] Comment: ?? The ADA defines abnormalities in albumin excretion as follows: ?? Albuminuria Category ?Result (mcg/mg creatinine) ?? Normal to Mildly increased ?? <30 Moderately increased ? 30-299 ?? Severely increased ? > OR = 300 ?? The ADA recommends that at least two of three specimens collected within a 3-6 month period be abnormal before considering a patient to be within a diagnostic category. Creatinine, Urine 138 20 - 275 mg/dL [facility] 08/04/2021 10:1 5 AM EST Ann Kulkarni DO LAB URINE ORDERABLES Final R esult Performing Organization Address [facility] Co de Phone Number [facility] [address] * (ABNORMAL) LIPID PANEL, STANDARD (08/04/2021 10:15 AM EST) Chol/HDLC Ratio 4.1 <5.0 (calc) [facility] Cholesterol, Total 134 <200 mg/dL [facility] HDL Cholesterol 33(L) > OR = 50 mg/dL [facility] LDL Cholesterol 71 mg/dL (calc) [facility] Comment: Reference range: <100 ?? Desirable range <100 mg/dL for primary prevention; ?? <70 mg/dL for patients with CHD or diabetic patients ?? with > or = 2 CHD risk factors. ?? LDL-C is now calculated using the Wily ?? calculation, which is a validated novel method providing ?? better accuracy than the Friedewald equation in the ?? estimation of LDL-C. ?? Kin BAIRD et al. BABS. 2013;310(19): 3000-0693 ?? (http://education.Oomnitza.ByteLight/faq/IBI565) Non-HDL Cholesterol 101 <130 mg/dL (calc) [facility] Comment: For patients with diabetes plus 1 major ASCVD risk ?? factor, treating to a non-HDL-C goal of <100 mg/dL ?? (LDL-C of <70 mg/dL) is considered a therapeutic ?? option. Triglycerides 209(H) <150 mg/dL [facility] Comment: ?? If a non-fasting specimen was collected, consider repeat triglyceride testing on a fasting specimen if clinically indicated. ?? Anuj et al. J. of Clin. Lipidol. 2015;9:129-169. ?? 08/04/2021 10:1 5 AM EST us Ann Kulkarni DO LAB BLOOD ORDERABLES Final R esult Performing Organization Address [facility] Co de Phone Number [facility] [address] from Last 3 Months or Most Recently Relevant to Health Maintenance Insurance [address] [place] [id number] [facility] Care Teams Grand Scribe Relationship Specialty Start Date End Date Amanda Watkins MD [address] [place] [address] PCP - General Family Medicine 04/07/19 Hiro Ram FNP [address] [place] [address] Nurse Practitioner Family Medicine 07/06/23 [facility]
--- OUTSIDE RECORDS SUMMARY | 2024-09-01 15:48 | XMS_ITS | Encounter Summary ---
Author Organization [employer] Address [address] [facility] [address] [place] [address] Care Team Providers Care Lunchroom Worker Name Role Phone Amanda Watkins MD Primary Care Provide r Hiro Ram Unavailable Unavailable Encounter Details Date Type Department Care Team ([facility] st Contact Info) Description 06/27/2024 Orders Only [facility] [address] [place] [address] Amanda Watkins MD [address] [place] [address] Social History Tobacco Use Types Packs/Day Years [...] EST Clinical Support [facility] [address] [place] [id number] 09/07/2024 2:00 PM EST Telemedicine [address] [address] Kayley Alanis, PHILLIP 09/14/2024 11:00 AM EST Telemedicine [facility] [address] [place] [address] 10/24/2024 2:00 PM EDT Office Visit [facility] [address] [place] [address] Emiliano, Elisa, OD [address] [place] [address] documented as of this encounter Visit Diagnoses Not on filedocumented in this encounter Additional Health Concerns Assessment Noted Time PHQ-9 Depression Total Score: 10 024 3:23 PM EDT documented as of this encounter Care Teams Lunchroom Worker Relationship Specialty Start Date End Date Amanda Watkins MD [address] [place] [address] PCP - General Family Medicine 04/07/19 Hiro Ram FNP [address] [place] [address] Nurse Practitioner Family Medicine 07/06/23 [facility] 07/03/22 08/16/24 Ja [facility] 08/10/24 documented as of this encounter
--- OUTSIDE RECORDS SUMMARY | 2024-09-01 15:48 | XMS_ITS | Encounter Summary ---
Author Organization [employer] Address [address] [facility] 7[address] [place] [address] Care Team Providers Care Manager Auto Name Role Phone Amanda Watkins MD Primary Care Provide r Hiro Ram Unavailable Unavailable Reason for Visit * Reason Onset Date Comments Durable Medical Equipment 05/11/2024 Encounter Details Date Type Department Care Team (Late st Contact Info) Description 05/11/2024 Telephone [facility] [address] [place] [address] Amanda Watkins MD [address] [place] [address] Durable Medical Equipment Social History Tobacco Use [...] * Telephone Encounter - Francisco Moraes - 05/12/2024 10:12 AM EDT Tc from patients daughter calling in regards to message below would like to have the pull-ups changed to diapers XXL due to patient being bed bound * Telephone Encounter - Laura Brand - 05/11/2024 1:12 PM EDT Tc from pt son requesting DME -Wipes -pull up size XXL -Bed pads documented in this encounter Plan of Treatment Upcoming Encounters Date Type Department Care Team (Late st Contact Info) Description 09/06/2024 10:00 AM EST Clinical Support [facility] [address] [place] [address] 09/07/2024 2:00 PM EST Telemedicine [facility] [address] [place] [address] Kayley Alanis, RN 09/14/2024 11:00 AM EST Telemedicine [facility] [address] [place] [address] 10/24/2024 2:00 PM EDT Office Visit [facility] [address] [place], [place] [phone] EmilianoElisa, OD [address] [place] [address] documented as of this encounter Visit Diagnoses Not on filedocumented in this encounter Additional Health Concerns Assessment Noted Time PHQ-9 Depression Total Score: 10 024 3:23 PM EDT documented as of this encounter Care Teams Manager Auto Relationship Specialty Start Date End Date Amanda Watkins MD [address] [place] [address] PCP - General Family Medicine 04/07/19 Hiro Ram FNP [address] [place] [address] Nurse Practitioner Family Medicine 07/06/23 [facility] 07/03/22 08/16/24 Ja [facility] 08/10/24 documented as of this encounter
[2024-09-01 16:24] LABS: Estimated Average Glucose 280 mg/dL; Hemoglobin A1C 264.6477 umol/L; Hemoglobin A1c % 11.4 % (<6.0); Total Hemoglobin (HGBA1C) 2608.9073 umol/L
[2024-09-01 19:19] LABS: Anion Gap 14 (12-20); Blood Urea Nitrogen 32 mg/dL (9-16); Carbon Dioxide 33 mmol/L (22-29); Chloride 96 mmol/L (96-108); Cholesterol 107 mg/dL (<200); Estimated Glomerular Filt Rate 32; Glucose Random 434 mg/dL (60-115); HDL Cholesterol 25 mg/dL (>40); LDL Cholesterol Calculated 34 mg/dL (<100); Potassium 4.7 mmol/L (3.3-5.1); Sodium 138 mmol/L (135-145); TSH reflex Free T4 30.54 uIU/mL (0.32-4.0); Triglycerides 241 mg/dL (<150)
[2024-09-01 19:54] LABS: Free T4 (Free Thyroxine) 0.94 ng/dL (0.71-1.85)
== END 2024-09-01 14:03 | disposition home or self-care (01) ==
LOC: HO.HHCL 14:02
PROVIDERS: Visit Provider Internal Medicine
DX: E11.65 Type 2 diabetes mellitus with hyperglycemia (principal); Z79.4 Long term (current) use of insulin; E03.9 Hypothyroidism, unspecified
CPT/HCPCS: 36415; 80048; 80061; 83036; 84439; 84443

== ENCOUNTER 2024-09-05 15:31 | Emergency (ER) | payer OTHER, SELFPAY ==
[2024-09-05 16:05] VITALS: BP 121/52; PULSE 67; RESP 18; TEMP 36.7; O2SAT 96
[2024-09-05 16:15] VITALS: BP 140/72; PULSE 78; O2SAT 97
[2024-09-05 16:32] VITALS: BMI 41.0
[2024-09-05 16:38] VITALS: BP 121/52; PULSE 67; RESP 18; TEMP 36.7; O2SAT 96; BMI 41.0
--- OUTSIDE RECORDS SUMMARY | 2024-09-05 17:52 | XMS_ITS | Data Portability ---
Author Organization [facility] [employer] [facility], Main Office Address [address] [place] [address] Care Team Providers Care Decorator Store Name Role Phone EUGENIA FLOWER - 2ND FLOOR OTHER Assessment Encounter Date Assessment Date Assessment LastModified by Organization Details LastModified Time 04/08/2024 04/08/202404/05 na 139 k 5 cre 1.27 wbc 6.8 hgn 9.7 hct 31.1 [email or web address] Not available 04/08/2024 12:35:37 04/11/2024 04/11/202404/05 na 139 k 5 cre 1.27 wbc 6.8 hgn 9.7 hct 31.1 [email or web address] Not available 04/11/2024 21:51:17 04/18/2024 04/18/202404/05 na 139 k 5 cre 1.27 wbc 6.8 hgn 9.7 hct 31.1 [email or web address] Not available 04/18/2024 13:49:59 04/19/2024 04/19/202404/05 na 139 k 5 cre 1.27 wbc 6.8 hgn 9.7 hct 31.1 this FILING CLERK spent >30 minutes with assessment, dx, referral, [...] Address Organization Details Recorded Time Depressive disorder 92325746 Active 2023 HOLDEN LAURENT [address], [address], [place], [address], [facility] 4 12:24:02 Atrial fibrillation 68823552 Active 2023 HOLDEN LAURENT [address], [address], [place], [address], [facility] 4 12:24:20 Obstructive sleep apnea syndrome 68390608 Active 2023 HOLDEN LAURENT [address], [address], [place], [address], [facility] 4 12:24:31 Asthma 265314233 Active 2023 HOLDEN LAURENT [address], [address], [place], [address], [facility] 4 12:24:36 Hypertensive disorder 07985208 Active 2023 HOLDEN LAURENT [address], [address], [place], [address], [facility] 4 12:24:41 Hyperlipidemia 95599780 Active 2023 HOLDEN LAURENT [address], [address], [place], [address], [facility] 4 12:24:47 Retention of urine 458781412 Active 2023 HOLDEN LAURENT [address], [address], [place], [address], [facility] 4 12:24:53 Opioid dependence 70839874 Active 2023 HOLDEN LAURENT [address], [address], [place], [address], [facility] 4 12:25:08 Diabetes mellitus 37389635 Active 2023 HOLDEN LAURENT [address], [address], [place], [address], [facility] 4 12:25:14 Congestive heart failure 29143167 Active 2023 HOLDEN LAURENT [address], [address], [place], [address], [facility] 4 12:25:21 Gastroesophage al reflux disease 047342129 Active 2023 REBECA HOLDEN SOTOMAYOR [address], [address], [place], [address], [facility] 4 12:25:30 Hypothyroidism 48190295 Active 2023 REBECAHOLDEN FELTON [address], [address], [place], [address], [facility] 4 12:25:37 Cellulitis 651444114 Active 2023 RE[address]CAHOLDEN FELTON [address], [address], [place], [address], [facility] 4 12:26:22 Arterial insufficiency 720278499 Active 2023 HOLDEN LAURENT [address], [place], [address], [facility] 4 12:26:37 Problem Notes None recorded. Medical Equipment None Reported. Allergies Allergen ID Allergen Name Allergen Category Reaction Reaction Severity Criticality Documentation Date Start Date Code Code System Note Provider Name and Address Organization Details Recorded Time [id number] codeine medicatio n Not available Not [...] Updated DateTime 4 152.4 cm 48.5 kg/m2 867195. 27 g 53 /min 18 /min 98.6 [degF] 98 % 98 % 149 mm[Hg] 77 mm[Hg] Genny Aguilar MD [address] [facility], [address], [place], [address], [facility] 4 21:34:16 Date Recorded Body height Heart rate Respiratory rate Body temperature Oxygen saturation Oxygen saturation in Arterial blood by Pulse oximetry Systolic blood pressure Diastolic blood pressure Provider Name and Address Organization Details Last Updated DateTime 4 152.4 cm 54 /min 18 /min 98.1 [degF] 96 % 96 % 175 mm[Hg] 90 mm[Hg] IBEHT PRCIE NP [address] [facility], [address], [place], [address], [facility] 4 13:49:23 Date Recorded Body height Body mass index (BMI) Body weight Heart rate Respiratory rate Body temperature Oxygen saturation Oxygen saturation in Arterial blood by Pulse oximetry Systolic blood pressure Diastolic blood pressure Provider Name and Address Organization Details Last Updated DateTime 4 152.4 cm 48.4 kg/m2 342075. 91 g 68 /min 18 /min 98.1 [degF] 96 % 96 % 132 mm[Hg] 72 mm[Hg] Raiza Madsen NP [address] [facility], [address], [place], [address], [facility] 4 08:19:33 Social History Question Answer Notes LastModified by Organizat ion Details LastModified Time Tobacco Smoking Status Never Smoker Genny Aguilar MD [address] [facility], [facility] [address], [place], [address], [facility] 04/11/2024 21:50:08 Do You Have An [...] Do You Have A Medical Power Of Cardiopulmonary Physical Therapist? Yes Information not available 04/11/2024 What Was [...] SNOMED-CT Code Diagnosis ICD10 Code Diagnosis Note [id number] HOLDEN LAURENT [address] [address] 04/08/2024 12:12:39 04/13/2024 15:07:34 Cellulitis 299850211 L03.90 completed antbx for LE cellulitis in ED = did not feel it was recurrence of an acute infectionh /o chronic lymphedema -monitor ss of infection- bacitracin topical to BL legs daily-oxyc odone 5 mg q6h prn for pain Arterial insufficiency 013945305 I77.1 -f/up with vascular per recs needs to be arranged-s ee above Retention of urine 34376 4002 R33.9 unable to urinate since coming from [facility] to facility-w ill order PVR, SC for PVR >400 cc Atrial fibrillation 4943 6004 I48.91 carrying dx-amiodar one 200 mg daily-eliq uis 5 mg bid-monito r HR and bleeding Hypertensive disorder 38 284531 I10 carrying dx-amlodip ine 10 mg daily-leonardo tor BP Depressive disorder 3548 9007 F32.A carrying dx-duloxet ine 20 mg daily-paxi l 40 mg daily-leonardo tor mood and affect-psy ch eval prn Congestive heart failure 62968532 I50.9 carrying dxnot on diuretics- metoprolol 50 mg daily-farx iga 10 mg daily-leonardo tor fluid status closely-da sacha weights Diabetes mellitus 373381 09 E11.9 carrying dxjardianc e was given once in hospital, dont see it on her home med list or dc med list = asked nursing to ask dtr-lantus 65 units HS-monitor accuchecks TID Hypothyroidism 80069181 E03.9 carrying dx-synthro id 50 mcg po in am-TSH/T4 prn Hyperlipidemia 10993961 E78.5 carrying dx-lipitor 80 mg daily Gastroesop hageal reflux disease 620316496 K21.9 carrying dx-omepraz ole 40 mg po daily Obstructiv e sleep apnea syndrome 01707513 G47.33 intermitte nt CPAP use at home Opioid dependence 272635 00 F11.20 -monitor needed support in community- on oxycodone for leg pain = monitor usage and wean as tolerated Dermal mycosis 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 Arterial insufficiency 060585786 I77.1 F/U with vascular as planned.Mo rubén ramos n. Retention of urine 63254 4002 R33.8 Improved, continue to monitor. Atrial fibrillation 4943 6004 I48.0 Rate in good control on amiodarone 200 mg daily and metoprolol 50 mg daily.Cont inue eliquis 5 mg BID for AC.Monitor HR and bleeding risk. Hypertensive disorder 38 910652 I10 Fair control on amlodipine 10 mg daily and metoprolol 50 mg daily.Leonardo tor BP and labs. Depressive disorder 5039 9007 F33.8 Mood good tonight, aside form wanting to go home.Nicanor nue duloxetine 20 mg daily, paroxetine 40 mg daily, trazadone 50 mg at bedtime, and melatonin 5 mg at bedtime.Anthony [place] moodPsych consult prn Congestive heart failure 69933413 I50.32 Appears euvolemic. Continue meds as above and Farxiga 10 mg daily.Leonardo tor resp. status, fluid status, wts and labs. Diabetes mellitus 879911 09 E11.9 In good control since here.Nicanor nue lantus 65 units daily and Farxiga 10 mg daily.Leonardo tor accuchecks TID Hypothyroidism 75230984 E03.8 Continue levothyrox ine 50 mcg dailyMonit or TSH prn. Hyperlipidemia 83197340 E78.49 Continue atorvastat in 80 mg dailyMonit or labs as outpt. Gastroesop hageal reflux disease 386325508 K21.9 No current sxs.Contin ue omeprazole 40 mg dailyMonit or GI sxs. Obstructiv e sleep apnea syndrome 36558838 G47.33 Continue CPAP with sleep.F/U prn. Opioid dependence 508832 00 F11.20 On oxycodone chronicall y.Monitor use and f/u with pcp as planned. Candidiasis of vagina 72 121546 B37.31 Not improving with nystatin.W ill start diflucan 150 mg x 1 and repeat in 1 wk. [id number] IBETH PRICE NP [address] [address] 04/18/2024 08:27:20 04/19/2024 14:02:05 Cellulitis 832608782 L03.116 Improved. now with healing woundsdiph enhydramin [...] BMP x 1 in am Arterial insufficiency 329128066 I77.1 F/U with vascular as planned.Anthony merazRefer to [facility] out[facility]. mgmt. upon d/c. Retention of urine 19785 4002 R33.8 Improved, continue to monitor. Atrial fibrillation 4943 6004 I48.0 Rate in good control on amiodarone 200 mg daily and metoprolol 50 mg daily.Cont inue eliquis 5 mg BID for AC.Monitor HR and bleeding risk. Hypertensive disorder 38 687572 I10 Fair control on amlodipine 10 mg [...] [place] moodPsych consult prn Congestive heart failure 37894944 I50.32 Appears euvolemic. Continue meds as above and Farxiga 10 mg daily.Leonardo tor resp. status, fluid status, wts and labs. Diabetes mellitus 725062 09 E11.9 In fair control since here.Nicanor nue lantus 65 units daily and Farxiga 10 mg daily.Leonardo tor accuchecks TID Hypothyroidism 51212058 E03.8 Continue levothyrox ine 50 mcg dailyMonit or TSH prn. Hyperlipidemia 93164450 E78.49 Continue atorvastat in 80 mg dailyMonit or labs as outpt. Gastroesop hageal reflux disease 694236639 K21.9 No current sxs.Contin ue omeprazole 40 mg dailyMonit or GI sxs. Obstructiv e sleep apnea syndrome 44614884 G47.33 Continue CPAP with sleep.F/U prn. Opioid dependence 952886 00 F11.20 On oxycodone chronicall y.Monitor use and f/u with pcp as planned. Candidiasis of vagina 72 929464 B37.31 Not improving with nystatin.D iflucan 150 mg x 1 given, to repeat in 1 wk. [id number] Raiza Madsen NP [address] [address] 04/19/2024 08:18:47 04/20/2024 13:31:13 Cellulitis 549772566 L03.116 resolved with abx in hospitalno w [...] pcp, and wound clinica oupt Arterial insufficiency 799384776 I77.1 F/U with vascular as planned.Re marichuy [place] [facility] for outpt. mgmt. upon d/c. (referral given)vna services outpt with pcp to follow outpt with wound clinic Retention of urine 09696 4002 R33.8 Improved, continue to monitor. Atrial fibrillation 4943 6004 I48.0 Rate in good control on amiodarone 200 mg daily and metoprolol 50 mg daily.Cont inue eliquis 5 mg BID for AC.Monitor outpt with pcp and cardiology outpt Hypertensive disorder 38 461830 I10 hospital dc'd losartan 50 mg po [...] outptPsych consult prn outpt Congestive heart failure 67251915 I50.32 Appears euvolemic. Continue meds as above and Farxiga 10 mg daily.Leonardo escalante outpt with pcp Diabetes mellitus 621576 09 E11.9 In fair control since here. 100-200s? if higher 200s related to infectiona lso glipizide and metformin was dc in hosp for ckd, monitor for need to add with pcp outptConti nuelantus 65 units dailyFarxi ga 10 mg daily.Leonardo escalante accuchecks TID at home and bring log to pcp on 04/26/24. Hypothyroidism 34778475 E03.8 Continuele vothyroxin e 50 mcg dailyMonit or TSH prn outpt withpcp Hyperlipidemia 72590558 E78.49 Continue atorvastat in 80 mg dailyMonit or labs as outpt. Gastroesop hageal reflux disease 971101419 K21.9 No current sxs.Contin ueomeprazo le 40 mg dailyMonit or GI sxs. outpt with pcp Obstructiv e sleep apnea syndrome 54368932 G47.33 Continue CPAP with sleep.F/U prn outpt prn Opioid dependence 223622 00 F11.20 On oxycodone chronicall y.will cont on home dose and since on chronicall y will not send with any additional oxycodoneM onitor use and f/u with pcp as planned outpt Candidiasis of vagina 72 019637 B37.31 Not improving with nystatin.D iflucan 150 mg x 1 given at rehabmonit or with pcp outpt Chronic ki dney disease 100497356 N18.9 ckd per hosp paperwork with meds adjusted:g lipizide, losartan, furosemide , and metformin were dc'dlabs as above stablemoni tor labs and need to adjust outpt with pcp Pain in le ft lower limb 777418281 M79.605 addfelicia was ready for discharge and now reporting left lower leg pain and states she can't put weight on itwhen attempting to get dressed for homefamily refuses therapy eval and xray here,famil y requests 911 call, and emergent evaluation at [facility] Health Concerns Section Related Observation LastModified by Organization Detai ls LastModified Time None Recorded Concern Status LastModified by Organization Details LastModified Time None Recorded Advance Directives Directive Y: Payers Encounter Date Sequence Insurance Name Policy Number Policy Meza Covered Member ID Meza Member ID Guarantor Name 04/08/2024 1 [facility] - DOS ON OR AFTER 2022 - [place]ICARE [place]AGE [place]/ADV ANTAGE - PPO) Mary Lou Cisneros [id number] Mary Lou Cisneros 04/11/2024 1 [facility] - DOS ON OR AFTER 2022 - [place]/ADV ANTAGE - PPO) Mary Lou Cisneros [id number] Mary Lou Cisneros 04/18/2024 1 [facility] - DOS ON OR AFTER 2022 - [place]/ADV ANTAGE - PPO) Mary Lou Cisneros [id number] Mary Lou Cisneros 04/19/2024 1 [facility] - DOS ON OR AFTER 2022 - [place] RE[place]AC[place]/ADV ANTAGE - PPO) Mary Lou Cisneros [id number] Mary Lou Cisneros Notes Date Note Type Note Provider Name and Address Organization Details Recorded Time 04/08/2024 text/html Patient is a 73 yo female being seen for initial intake visit. She presented to [facility] for eval of left leg pain. She [...] PT and was recommended for transfer to [facility] for continued care and rehab. On arrival from hospital patient reporting to nursing that she hasnt urinated. No report of this occurring while she was at [facility] and she did not have a [...] opiate dependence, hld, htn, DM REBECA SOTOMAYOR, FILING CLERK-C [address] [facility], [address], [place], [address], [facility] [employer] [facility] 04/08/2024 13:05:26 04/11/2024 text/html This is a 73 yo woman who is here for rehab after an ED visit for left leg pain after recovery from recent cellulitis.[facility] txed with ceftriaxone and [...] for most activities.I see her with a croatian speaking staff member.She is in bed, wakes [...] OA, OP, and fibromyalgia. Genny Aguilar MD [address] [place] [address], [address], [place], [address], [facility] 04/14/2024 20:04:50 04/18/2024 text/html This is a 73 yo woman who is here for rehab after an ED visit for left leg pain after recovery from recent cellulitis.She [facility], txed with ceftriaxone and [...] OP, and fibromyalgia. IBETH PRICE, OSITO [address] [facility], [address], [place], [address], [facility] [employer] 04/18/2024 14:21:33 04/19/2024 text/html This is a [...] note per records:She [facility], txed with ceftriaxone and [...] outpt with pcp She was transferred to [facility] for rehab on 04/08 and working with rehab showing improvement and felt she is stable to discharge home. Vitals stable here and BP labile, last at 132/72 this am. While at [facility] she was seen by the wound team [...] PM. A referral has been made to [facility] for ongoing skilled services. She will be seen on Wednesday @ 4:00 PM. [facility] notified of discharge with request to resume services. A follow-up appointment has been scheduled with her PCP, Dr. Kimmy Myers @ . It will be on April 26 @ 9:45 AM.Mary Lou Hess is scheduled to be discharged home on Friday, April 19, 2024. She will be picked up by family @ 1:00 PM. A referral has been made to [facility] for ongoing skilled services. She will [...] she goes home from ER. discussed with personnel administrator at facility Raiza Madsen, OSITO [address] [facility], [address], [place], [address], [facility] 04/19/2024 13:13:44 OBGyn Episode No OBEpisode recorded.
--- OUTSIDE RECORDS SUMMARY | 2024-09-05 17:53 | XMS_ITS | Encounter Summary ---
Author Organization [employer] Address [address] [facility] [address] [place] [address] Care Team Providers Care Slip Cover Cutter Name Role Phone Amanda Watkins MD Primary Care Provide r Hiro Ram Unavailable Unavailable Encounter Details Date Type Department Care Team ([facility] st Contact Info) Description 09/01/2024 Orders Only [facility] [address] [place] [address] Amanda Watkins MD [address] [place] [address] Social History Tobacco Use Types Packs/Day Years [...] Description 09/06/2024 10:00 AM EST Clinical Support [facility] [address] [place] [address] 09/07/2024 2:00 PM EST Telemedicine [address] [address] Kayley Alanis, PHILLIP 09/14/2024 11:00 AM EST Telemedicine [address] [address] 09/15/2024 1:00 PM EST Medication Management [address] [address] Raad Arias, PharmD [address] [place] [address] 10/24/2024 2:00 PM EDT Office Visit [facility]OM[facility] [address] [place] [address] Elisa Cummings, ALOK [address] [place] [address] documented as of this encounter Procedures Procedure Name Priority Date/Time Associated Diagnosis Comments T4, FREE Routine 09/01/2024 2:09 PM EST HEMOGLOBIN A1C Routine 09/01/2024 2:09 PM EST LIPID PANEL, STANDARD Routine 09/01/2024 2:09 PM EST documented in this encounter Results * T4, Free (09/01/2024 2:09 PM EST) Free T4 (Free Thyroxine) 0.94 0.71 - 1.85 ng/dL [facility] 09/01/2024 2:09 PM EST 09/01/2024 4:09 PM EST us Amanda Myers MD LAB BLOOD ORDERABLES Final Result [facility] [address] [place] [phone] * (ABNORMAL) Lipid Panel, Standard (09/01/2024 2:09 PM EST) Triglycerides 241(H) <150 mg/dL [facility] Comment:Desirable Triglyceri de: less than 150 mg/dLBorderline High Triglyceride 150-199 mg/dLHigh Triglyceride: 200-499 mg/dLVery High Triglyceride: greater than or equal to 5OO mg/dL Cholesterol 107 <200 mg/dL [facility] Comment:Desirable Cholestero l: less than 200 mg/dLBorderline High Cholesterol: 200-239 mg/dLHigh Cholesterol: greater than 239 mg/dL LDL Cholesterol Calculated 34 <100 mg/dL [facility] Comment:Desirable LDL: less than 100 mg/dLNear Optimal/Above Optimal LDL: 110- 129 mg/dLBorderline High LDL: 130-159 mg/dLHigh LDL: 160-189 mg/dLVery High LDL: greater than or equal to 190 mg/dL HDL Cholesterol 25(L) >40 mg/dL [facility] Comment:Desirable HDL: great er than 40 mg/dL Note: This HDL assay may give artificially low results in patients with liver disease. 09/01/2024 2:09 PM EST 09/01/2024 4:09 PM EST us Amanda Myers MD LAB BLOOD ORDERABLES Final Result Performing Organization Address [facility]/ZIP Co de Phone Number [facility] [address] [place] [address] [phone] * (ABNORMAL) Hemoglobin A1c (09/01/2024 2:09 PM EST) Hemoglobin A1c 11.4(H) <6.0 % [facility] Comment:Hemoglobin A1C Refer ence Range Adults: 4.8 - 6.0 % Non diabetic: < 6.0 % Goal: < 7.0 %Additional Action Suggested: > 8.0 %Note: Hemoglobin A1c results are invalid for patients with abnormal amounts of HbF. Blood transfusions may impact the HbA1c concentration in the patient sample. Estimated Average Glucose 280 mg/dL [facility] Comment:eAG = Estimated ave rage glucose which is %A1C expressed asaverage glucose, using the formula of the V9C-McqecdgLzohirj Glucose study (ADAG), Diabetes Care, Vol.31,#8,Mar. 2007 09/01/2024 2:09 PM EST 09/01/2024 4:09 PM EST us Amanda Myers MD LAB BLOOD ORDERABLES Final Result Performing Organization Address [facility] Co de Phone Number [facility] [address] [place] [phone] documented in this encounter Visit Diagnoses Not on filedocumented in this encounter Additional Health Concerns Assessment Noted Time PHQ-9 Depression Total Score: 0 09/01/19 25 1:18 PM EST documented as of this encounter Care Teams Slip Cover Cutter Relationship Specialty Start Date End Date Amanda Watkins MD [address] [place] [address] PCP - General Family Medicine 04/07/19 Hiro Ram FNP [address] [place] [address] Nurse Practitioner Family Medicine 07/06/23 Ja ARCE 08/10/24 documented as of this encounter
--- OUTSIDE RECORDS SUMMARY | 2024-09-05 17:53 | XMS_ITS | Encounter Summary ---
Author Organization [employer] Address 75 [facility] 7t [place] [address] Care Team Providers Care Complaint Supervisor Name Role Phone Amanda Watkins MD Primary Care Provide r Hiro Ram Unavailable Unavailable Encounter Details Date Type Department Care Team (Late st Contact Info) Description 08/10/2024 10:00 AM EST Telemedicine [facility] [address] [place] [address] Vilma [place], PharmD 230 [place] [address] Type 2 diabetes mellitus with hyperglycemia, with [...] Provider: Please consider completing PA form for Inuvo [place] (PA form faxed by pharmacy 08/11/24) Note [...] Allergies: is allergic to codeine. Preferred Pharmacy: [facility] 230 [facility] 230 [facility] [phone] Medbox: To begin during today's appointment. Assessment & Plan Adherence: History: Medication Reconciliation: Reports use of the following medications that are not currently active in [facility] medlist: Nystatin 100,000 U/g powder topically twice daily (LF 06/20/24 at [facility] pharmacy) Denies use of the following medications that are active [facility]: Santyl ointment (LF 04/21/24) Triamcinolone acetonide cream [...] appointment with this provider. Read/Write: Yes, in Kiswahili Reports interest in [facility] medbox program Patient used [facility] medbox program in the past, however they stopped with the program when they had VNA services, as their nurse had their own medication organization routine. Patient and family are now interested in [facility] medbox program again, as the patient and [...] on these medications from a hospitalization at [facility] and discharged on 06/20/24. Per pre-visit HDF [...] Farxiga 10 mg once daily Prescribed by [facility] nephrology Lantus 60 units once daily Patient [...] of the call. Patient recently went to [facility] ED on 08/07/24 for HIGH BG readings. [...] Yes Eye exam scheduled for 10/24/24 at [facility]. Goals of therapy: Per the ADA Standards [...] completing PA form for Freestyle Mickey 2 [place] (PA form faxed by pharmacy 08/11/24) Note [...] head ache, blurry vision. Recently hospitalized at [facility] and discharged 06/20/24 for treatment of CHF exacerbation. At discharge, amlodipine was decreased from 10 mg to 5 mg once daily and torsemide 20 mg was initiated. Underwent cardioversion 06/2023 into sinus rhythm. Follows with [facility] cardiology (OSITO Stovall): last visit 11/18/2023 Recent [...] mg once daily History Patient follows with [facility] nephrology (Dr. Ibarra) Last visit on 03/29/2024: Plan to continue Farxiga. Patient has history of urinary incontinence. (Patient currently does not have VNA services to help with changes) Patient recently treated for UTI on 08/07/24 Per patient reported history, blood glucose readings are HIGH , with last reported 448 mg/dL Patient historically on losartan, however was discontinued at [facility] discharge on 03/21/24 due to experiencing MARK. Labs monitoring: Lab Results Component Value Date EGFR 20 07/06/2024 EGFR 41 01/06/2024 EGFR 32 10/25/2023 CREATININE 2.20 08/07/2024 (per [facility] discharge paperwork) CREATININE 2.41 (H) 07/06/2024 CREATININE [...] prescriber (Dr. Ibarra of [facility]) Per discussion with industrial real estate agent, Farxiga is to be discontinued at this [...] the CDC Adult Immunization Schedule. Assessment/Plan: Influenza [id number] vaccine: Up-to-date . Next dose due annually. COVID-19 [id number] vaccine: Due . Next dose due annually. [...] at follow up in 1 months: 09/14/24 commissary production supervisor medboxes from the pharmacy on 08/15/24 Monitor [...] Description 09/06/2024 10:00 AM EST Clinical Support [facility] [address] [place] [address] 09/07/2024 2:00 PM EST Telemedicine [address] [address] Kayley Alanis, PHILLIP 09/14/2024 11:00 AM EST Telemedicine [address] [address] 09/15/2024 1:00 PM EST Medication Management [address] [address] Raad Arias, Carlos [address] [place] [address] 10/24/2024 2:00 PM EDT Office Visit [facility] [address] [place] [address] Emiliano, Elisa, OD 230 [place] [address] Scheduled Orders Name Type Priority Associated Diagnoses Orde r Schedule Lipid Panel, Standard Lab Routine Type 2 diabetes mellitus with hyperglycemia, with long-term current use of insulin ([facility]) Expected: 08/11/2024 (Approximate), Expires: 08/10/2025 Hemoglobin A1c Lab Routine Type 2 diabetes mellitus with hyperglycemia, with long-term current use of insulin ([facility]/HCC) Expected: 08/11/2024 (Approximate), Expires: 08/10/2025 documented as of this encounter Visit Diagnoses Diagnosis Type 2 diabetes mellitus with hyperglycemia, with long-term current use of insulin ([facility]/HCC)- Primary Essential (primary) hypertension Unspecified essential hypertension Stage 3b chronic kidney disease (CMS/[facility]) documented in this encounter Additional Health Concerns Assessment Noted Time PHQ-9 Depression Total Score: 10 024 3:23 PM EDT documented as of this encounter Care Teams Complaint Supervisor Relationship Specialty Start Date End Date Amanda Watkins MD [address] [place] [address] PCP - General Family Medicine 04/07/19 Hiro Ram FNP [address] [place] [address] Nurse Practitioner Family Medicine 07/06/23 [facility] 07/03/22 08/16/24 Ja COUNT INCLUDES [facility] 08/10/24 documented as of this encounter
--- OUTSIDE RECORDS SUMMARY | 2024-09-05 17:53 | XMS_ITS | Encounter Summary ---
Author Organization [facility] Address 75 [facility] 7t [place] [address] Care Team Providers Care Renal Dialysis Technician Name Role Phone Amanda Watkins MD Primary Care Provide r Hiro Ram Unavailable Unavailable Reason for Visit * Reason Comments Transition Of Care (Tcm) HDF- scheduled and SDOH screening completed on 10/15/2023 Encounter Details Date Type Department Care Team ([facility] st Contact Info) Description 08/16/2024 Patient Outreach [facility] [address] [place] [address] Amanda Watkins MD [address] [place], [place] [phone] Transition Of Care (Tcm) (HDF- scheduled and [...] 08/16/24 1113 Hospital Discharges and Admission for 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 [facility] time [facility] service and option to transfer to completion manager provider if needed. CC scanned discharge summary [...] Description 09/06/2024 10:00 AM EST Clinical Support [facility] [address] [place] [address] 09/07/2024 2:00 PM EST Telemedicine [address] [address] Kayley Alanis, PHILLIP 09/14/2024 11:00 AM EST Telemedicine [address] [address] 09/15/2024 1:00 PM EST Medication Management [address] [address] Raad Arias, PharmD 230 [place] [address] 10/24/2024 2:00 PM EDT Office Visit [facility] [address] [place] [address] Elisa Cummings, OD 230 [place] [address] documented as of this encounter Visit Diagnoses Not on filedocumented in this encounter Additional Health Concerns Assessment Noted Time PHQ-9 Depression Total Score: 10 024 3:23 PM EDT documented as of this encounter Care Teams Renal Dialysis Technician Relationship Specialty Start Date End Date Amanda Watkins MD 230 [place] [address] PCP - General Family Medicine 04/07/19 Hiro Ram FNP 230 [facility] [place] [address] Nurse Practitioner Family Medicine 07/06/23 [facility] 07/03/22 08/16/24 Ja [facility] 08/10/24 documented as of this encounter
--- OUTSIDE RECORDS SUMMARY | 2024-09-05 17:53 | XMS_ITS | Encounter Summary ---
Author Organization [employer] Address 75 [facility] 7t [place] [address] Care Team Providers Care Pick Up Truck Driver Name Role Phone Amanda Watkins MD Primary Care Provide r Hiro Ram Unavailable Unavailable Reason for Visit * Reason Onset Date Comments Durable Medical Equipment 08/31/2024 L&C Fo rm: Briefs and Underpads Encounter Details Date Type Department Care Team ([facility] st Contact Info) Description 08/31/2024 Telephone [facility] [address] [place] [address] Amanda Watkins MD [address] [place] [address] Durable Medical Equipment (L&C Form: Briefs and [...] 09/06/2024 10:00 AM EST Clinical Support [facility]INE [address] [place] [address] 09/07/2024 2:00 PM EST Telemedicine [facility]INE [address] [place] [address] Kayley Alanis, PHILLIP 09/14/2024 11:00 AM EST Telemedicine [facility] MED[facility]INE [address] [place] [address] 09/15/2024 1:00 PM EST Medication Management [facility] [address] [place] [address] Raad Arias, PharmD [address] [place] [address] 10/24/2024 2:00 PM EDT Office Visit [facility] OPTOMETRY [address] [place] [address] Emiliano, Elisa, OD 230 [place] [address] documented as of this encounter Visit Diagnoses Not on filedocumented in this encounter Additional Health Concerns Assessment Noted Time PHQ-9 Depression Total Score: 10 024 3:23 PM EDT documented as of this encounter Care Teams Pick Up Truck Driver Relationship Specialty Start Date End Date Amanda Watkins MD [address] [place] [address] PCP - General Family Medicine 04/07/19 Hiro Ram FNP [address] [place] [address] Nurse Practitioner Family Medicine 07/06/23 [facility] 08/10/24 documented as of this encounter
--- OUTSIDE RECORDS SUMMARY | 2024-09-05 17:53 | XMS_ITS | Encounter Summary ---
Author Organization [employer] Address 75 [facility] 7t [place] [address] Care Team Providers Care Cyber Incident Handler Name Role Phone Amanda Watkins MD Primary Care Provide r Hiro Ram Unavailable Unavailable Reason for Visit * Reason Comments Med Refill Encounter Details Date Type Department Care Team (Late st Contact Info) Description 02/11/2024 Refill [facility] [address] [place] [address] Amanda Watkins MD [address] [place] [address] Type 2 diabetes mellitus with other specified complication, unspecified whether buttermaker helper insulin use ([facility]) Social History Tobacco Use Types Packs/Day Years [...] 10:00 AM EST Clinical Support [facility] [address] [place] [address] 09/07/2024 2:00 PM EST Telemedicine [address] [address] Kayley Alanis, PHILLIP 09/14/2024 11:00 AM EST Telemedicine [facility] [address] [place] [address] 09/15/2024 1:00 PM EST Medication Management [facility] [address] [place] [address] Raad Arias, PharmD [address] [place] [address] 10/24/2024 2:00 PM EDT Office Visit [facility] OPTOMETRY [address] [place] [address] Elisa Cummings, ALOK [address] [place] [address] documented as of this encounter Visit Diagnoses Diagnosis Type 2 diabetes mellitus with other specified complication, unspecified whether nursing home insulin use ([facility]) documented in this encounter Additional Health Concerns Assessment Noted Time PHQ-9 Depression Total Score: 10 024 3:23 PM EDT documented as of this encounter Care Teams Cyber Incident Handler Relationship Specialty Start Date End Date Amanda Watkins MD [address] [place] [address] PCP - General Family Medicine 04/07/19 Hiro Ram FNP [address] [place] [address] Nurse Practitioner Family Medicine 07/06/23 [facility] 07/03/22 08/16/24 Ja [facility] 08/10/24 documented as of this encounter
--- OUTSIDE RECORDS SUMMARY | 2024-09-05 17:53 | XMS_ITS | Encounter Summary ---
Author Organization [employer] Address 75 [facility] 7t [place] [address] Care Team Providers Care Atlassian Administrator Name Role Phone Amanda Watkins MD Primary Care Provide r Hiro Ram Unavailable Unavailable Reason for Visit * Reason Onset Date Comments Neighborhood Worker Documentation 09/01/2024 Encounter Details Date Type Department Care Team ([facility] Contact Info) Description 09/01/2024 Telephone [facility] [address] [place], [place] [phone] Margarita Simmons FNP [address] [place] [address] Neighborhood Worker Documentation Social History Tobacco Use Types Packs/Day Years [...] encounter Miscellaneous Notes * Telephone Encounter - MALINDA Kessler - 09/01/2024 7:40 PM EST Neighborhood Worker Documentation: Received critical result of BG 434 taken today a 2:09pm. Called [phone], LVM. Called [phone] and spoke with pt daughter. Confirmed name and . Reports that she is not with mother at this time, but will have family member check BG and bring to ED if symptomatic or continues with BG > 300. documented in this encounter Plan of Treatment Upcoming Encounters Date Type Department Care Team (Late st Contact Info) Description 09/06/2024 10:00 AM EST Clinical Support [facility] [address] [place] [address] 09/07/2024 2:00 PM EST Telemedicine [address] [address] Kayley Alanis RN 09/14/2024 11:00 AM EST Telemedicine [address] [address] 09/15/2024 1:00 PM EST Medication Management [address] [phone] Raad Arias, PharmD [address] [place] [address] 10/24/2024 2:00 PM EDT Office Visit [facility] [address] [place], [place] [phone] Elisa Cummings, OD 230 [place], [place] [phone] documented as of this encounter Visit Diagnoses Not on filedocumented in this encounter Additional Health Concerns Assessment Noted Time PHQ-9 Depression Total Score: 0 09/01/19 1:18 PM EST documented as of this encounter Care Teams Atlassian Administrator Relationship Specialty Start Date End Date Amanda Watkins MD [address] [place] [phone] PCP - General Family Medicine 04/07/19 Hiro Ram FNP [address] [place] [address] Nurse Practitioner Family Medicine [facility] documented as of this encounter
--- OUTSIDE RECORDS SUMMARY | 2024-09-05 17:53 | XMS_ITS | Encounter Summary ---
Author Organization [employer] Address 75 [facility] 7t [place] [address] Care Team Providers Care Coffee Taster Name Role Phone Amanda Watkins MD Primary Care Provide r Hiro aRm Unavailable Unavailable Encounter Details Date Type Department Care Team ([facility] st Contact Info) Description 08/14/2024 Telephone [facility] [address] [place] [address] Lacey Quesada MD [address] [place] [address] Social History Tobacco Use Types Packs/Day Years [...] MD - 08/14/2024 8:51 AM EST TC phone counselor from [employer] at [facility]. Patient has been admitted and they need an updated med list. Current medication list sent via encrypted email to [facility]. documented in this encounter Plan of Treatment Upcoming Encounters Date Type Department Care Team (Late st Contact Info) Description 09/06/2024 10:00 AM EST Clinical Support [facility] MED[facility]INE [address] [place] [address] 09/07/2024 2:00 PM EST Telemedicine [facility] [address] [place] [address] Kayley Alanis RN 09/14/2024 11:00 AM EST Telemedicine [facility] [address] [place] [address] 09/15/2024 1:00 PM EST Medication Management [facility] [address] [place] [address] Raad Arias, PharmD [address] [place] [address] 10/24/2024 2:00 PM EDT Office Visit [facility] OPTOMETRY [address] [place] [address] Elisa Cummings, OD [address] [place] [address] documented as of this encounter Visit Diagnoses Not on filedocumented in this encounter Additional Health Concerns Assessment Noted Time PHQ-9 Depression Total Score: 10 024 3:23 PM EDT documented as of this encounter Care Teams Coffee Taster Relationship Specialty Start Date End Date Amanda Watkins MD [address] [place] [address] PCP - General Family Medicine 04/07/19 Hiro Ram FNP [address] [place] [address] Nurse Practitioner Family Medicine 07/06/23 [facility] 07/03/22 08/16/24 Ja [facility] 08/10/24 documented as of this encounter
--- OUTSIDE RECORDS SUMMARY | 2024-09-05 17:53 | XMS_ITS | Encounter Summary ---
Author Organization [employer] [facility] Address 75 [facility] 7t [place] [address] Care Team Providers Care Adjunct Physics Instructor Name Role Phone Amanda Watkins MD Primary Care Provide r Hiro Ram Unavailable Unavailable Reason for Referral * Consultation (Routine) - Authorized Specialty Diagnoses / Procedures Referred By Caren queen Referred To Contact Nutrition Diagnoses Type 2 diabetes mellitus with hyperglycemia, with long-term current use of insulin (CMS/HCC) Chronic diastolic congestive heart failure ([facility]/HCC) Amanda Watkins MD [address] [place] [address] Phone: tel: fax: Referral ID Status Reason Start Date Expiration Date Visits Requested Visits Authorized [id number] Authorized Specialty Services Required 09/01/2024 09/01/2025 1 1 * Consultation (Routine) - Authorized Specialty Diagnoses / Procedures Referred By Caren queen Referred To Contact Pharmacy Diagnoses Type 2 diabetes mellitus with hyperglycemia, with long-term current use of insulin ([facility]/HCC) Amanda Watkins MD [address] [place] [address] Phone: tel: fax: Referral ID Status Reason Start Date Expiration Date Visits Requested Visits Authorized [id number] Authorized Consult and Treat 09/01/2024 09/01/2025 6 6 Encounter Details Date Type Department Care Team (Latest Contact Info) Description 09/01/2024 1:00 PM EST Office Visit [facility] [address] [place] [address] Amanda Watkins MD [address] [place] [address] Type 2 diabetes mellitus with hyperglycemia, with long-term current use of insulin (CMS/[facility]) (Primary Dx); Chronic diastolic congestive heart failure [...] AM EST Clinical Support [facility] [address] [place] [address] 09/07/2024 2:00 PM EST Telemedicine [facility] [address] [place] [address] Kayley Alanis, PHILLIP 09/14/2024 11:00 AM EST Telemedicine [facility] [address] [place] [address] 09/15/2024 1:00 PM EST Medication Management [facility] [address] [place] [address] Raad Arias, PharmD [address] [place] [address] 10/24/2024 2:00 PM EDT Office Visit [facility] [address] [place] [address] Elisa Cummings, OD [address] [place] [address] Scheduled Referrals Name Type Priority Associated Diagnoses Orde r Schedule Referral to Pharmacy CDTM Outpatient Referral Routine Type 2 diabetes mellitus with hyperglycemia, with long-term current use of insulin ([facility]) Ordered: 09/01/2024 Referral to Nutrition Services, Internal Outpatient Referral Routine Type 2 diabetes mellitus with hyperglycemia, with long-term current use of insulin ([facility]) Chronic diastolic congestive heart failure (CMS/HCC) Expected: 09/01/2024 (Approximate), Expires: 09/01/2025 documented as of this encounter Procedures Procedure Name Priority Date/Time Associated Diagnosis Comments TSH W/REFLEX TO FT4 Routine 09/01/2024 2:09 PM EST Acquired hypothyroidism BASIC METABOLIC PANEL Routine 09/01/2024 2:09 PM EST Type 2 diabetes mellitus with hyperglycemia, with long-term current use of insulin ([facility]) POCT GLYCATED HEMOGLOBIN, TOTAL Routine 09/01/2024 1:24 PM EST Type 2 diabetes mellitus with hyperglycemia, with long-term current use of insulin ([facility]) POCT GLUCOSE Routine 09/01/2024 1:23 PM EST Type 2 diabetes mellitus with hyperglycemia, with long-term current use of insulin ([facility]) documented in this encounter Results * (ABNORMAL) TSH W/Reflex to FT4 (09/01/2024 2:09 PM EST) TSH reflex Free T4 30.54(H) 0.32 - 4.0 uIU/mL [facility] Blood Venous blood specimen / Unknown 09/01/2024 2:09 PM EST 09/01/2024 4:09 PM EST us Amanda Myers MD LAB BLOOD ORDERABLES Final Result [facility] [address] [place] [address] [phone] * (ABNORMAL) Basic Metabolic Panel (09/01/2024 2:09 PM EST) Sodium 138 135 - 145 mmol/L [facility] Potassium 4.7 3.3 - 5.1 mmol/L [facility] Comment:Slight Hemolysis.Int erpret result with caution. Chloride 96 96 - 108 mmol/L [facility] Carbon Dioxide 33(H) 22 - 29 mmol/L [facility] Anion Gap 14 12 - 20 [facility] Urea Nitrogen (BUN) 32(H) 9 - 16 mg/dL [facility] Creatinine, Serum 1.58(H) 0.5 - 1.4 mg/dL [facility] Estimated Glomerular Filt Rate 32 [facility] Comment:Chronic Kidney Disea se: Estimated GFR < 60 mL/min/1.42m7Zxbenm Kidney Disease: Estimated GFR < 15 mL/min/1.73m2 Glucose 434(HH) 60 - 115 mg/dL [facility] Comment:Critical value for t est(GLU): Results called to and readback by: MIGUEL MOY Person calling: ZULEMA Date:09/01/24 Time: 1914 Calcium 9.0 8.4 - 10.2 mg/dL [facility] Blood Venous blood specimen / Unknown 09/01/2024 2:09 PM EST 09/01/2024 4:09 PM EST us Amanda Myers MD LAB BLOOD ORDERABLES Final Result [facility] [address] [place] [phone] * (ABNORMAL) POCT HGB A1C (09/01/2024 1:24 [...] Media Lot # [id number] Lot# Expiration Date ,449,493 Blood Capillary blood specimen / Unknown 09/01/2024 1:23 PM EST Amanda Myers MD POINT OF CARE TEST EN TER/EDIT ORDERABLES Final Result documented in this encounter Visit Diagnoses Diagnosis Type 2 diabetes mellitus with hyperglycemia, with long-term current use of insulin ([facility])- Primary Chronic diastolic congestive heart failure ([facility]) Acquired hypothyroidism Unspecified hypothyroidism Primary hypertension Unspecified essential hypertension Allergic conjunctivitis of both eyes Other chronic allergic conjunctivitis Other constipation documented in this encounter Additional Health Concerns Assessment Noted Time PHQ-9 Depression Total Score: 0 09/01/19 1:18 PM EST documented as of this encounter Care Teams Adjunct Physics Instructor Relationship Specialty Start Date End Date Amanda Watkins MD [address] [place] [address] PCP - General Family Medicine 04/07/19 Hiro Ram FNP [address] [place] [address] Nurse Practitioner Family Medicine 07/06/23 Ja [facility] 08/10/24 documented as of this encounter
--- OUTSIDE RECORDS SUMMARY | 2024-09-05 17:53 | XMS_ITS | Encounter Summary ---
Author Organization [employer] Address 75 [facility] 7t [place] [address] Care Team Providers Care Stove Mounter Name Role Phone Amanda Watkins MD Primary [...] Clinical Support [facility] MED[facility]INE [address] [place] [address] 09/07/2024 2:00 PM EST Telemedicine [address] [address] Kayley Alanis RN 09/14/2024 11:00 AM EST Telemedicine [address] [address] 09/15/2024 1:00 PM EST Medication Management [address] [address] Raad Arias, PharmD [address] [place] [address] 10/24/2024 2:00 PM EDT Office Visit [facility] OPTOMETRY [address] [place] [address] Elisa Cummings, OD [address] [place] [address] documented as of this encounter Visit Diagnoses Not on filedocumented in this encounter Additional Health Concerns Assessment Noted Time PHQ-9 Depression Total Score: 0 09/01/19 25 1:18 PM EST documented as of this encounter Care Teams Stove Mounter Relationship Specialty Start Date End Date Amanda Watkins MD [address] [place] [address] PCP - General Family Medicine 04/07/19 Hiro Ram FNP [address] [place] [address] [place] [address] Nurse Practitioner Family Medicine 07/06/23 Ja [facility] 08/10/24 documented as of this encounter
--- OUTSIDE RECORDS SUMMARY | 2024-09-05 17:53 | XMS_ITS | Encounter Summary ---
Author Organization [employer] Address 75 [facility] 7t [place] [address] Care Team Providers Care Travel Pt Name Role Phone Amanda Watkins MD Primary Care Provide r Hiro Ram Unavailable Unavailable Reason for Visit * Reason Comments Pre-visit Planning (Unable to reach for PVP screening, LVM) Encounter Details Date Type Department Care Team ([facility] st Contact Info) Description 08/10/2024 Patient Outreach [facility] [address] [place] [address] Amanda Watkins MD [address] [place] [address] Pre-visit Planning ((Unable to reach for PVP [...] Description 09/06/2024 10:00 AM EST Clinical Support [address] [address] 09/07/2024 2:00 PM EST Telemedicine [facility] MED[facility] [address] [place] [address] Kayley Alanis, PHILLIP 09/14/2024 11:00 AM EST Telemedicine [facility] [address] [place] [address] 09/15/2024 1:00 PM EST Medication Management [address] [address] Raad Arias, PharmD [address] [place] [address] 10/24/2024 2:00 PM EDT Office Visit [facility] OPTOMETRY [address] [place] [address] Elisa Cummings, OD [address] [place] [address] documented as of this encounter Visit Diagnoses Not on filedocumented in this encounter Additional Health Concerns Assessment Noted Time PHQ-9 Depression Total Score: 10 024 3:23 PM EDT documented as of this encounter Care Teams Travel Pt Relationship Specialty Start Date End Date Amanda Watkins MD [address] [place] [address] PCP - General Family Medicine 04/07/19 Hiro Ram FNP [address] [place] [address] Nurse Practitioner Family Medicine 07/06/23 [facility] 07/03/22 08/16/24 Ja [facility] 08/10/24 documented as of this encounter
--- OUTSIDE RECORDS SUMMARY | 2024-09-05 17:53 | XMS_ITS | Encounter Summary ---
Author Organization [employer] Address 75 [facility] 7t [place] [address] Care Team Providers Care Institutional Research Director Name Role Phone Amanda Watkins MD Primary Care Provide r Hiro Ram Unavailable Unavailable Reason for Visit * Reason Onset Date Comments r/s SHIPPING AND RECEIVING ASSISTANT 06/14/2023 Encounter Details Date Type Department Care Team (Late st Contact Info) Description 06/14/2023 Telephone [facility] [address] [place] [address] Amanda Watkins MD [address] [place] [address] r/s SHIPPING AND RECEIVING ASSISTANT Social History Tobacco Use Types Packs/Day Years [...] EST Tc from pt requesting to r/s SHIPPING AND RECEIVING ASSISTANT RN appt scheduled for 06/14/23 , Appt has been cancelled. States they do not feel good and medications on in a lockbox. Please contact at [phone] documented in this encounter Plan of Treatment Upcoming Encounters Date Type Department Care Team (Late st Contact Info) Description 09/06/2024 10:00 AM EST Clinical Support [address] [address] 09/07/2024 2:00 PM EST Telemedicine [facility]INE [address] [place] [address] Kayley Alanis, PHILLIP 09/14/2024 11:00 AM EST Telemedicine [facility] [address] [place] [address] 09/15/2024 1:00 PM EST Medication Management [address] [address] Raad Arias, PharmD [address] [place] [address] 10/24/2024 2:00 PM EDT Office Visit [facility] OPTOMETRY [address] [place] [address] Elisa Cummings, OD [address] [place], [place] [phone] documented as of this encounter Visit Diagnoses Not on filedocumented in this encounter Additional Health Concerns Assessment Noted Time PHQ-9 Depression Total Score: 11 023 2:19 PM EDT documented as of this encounter Care Teams Institutional Research Director Relationship Specialty Start Date End Date Amanda Watkins MD [address] [place], [place] [phone] PCP - General Family Medicine 04/07/19 Hiro Ram FNP [address] [place] [address] Nurse Practitioner Family Medicine 07/06/23 [facility] 07/03/22 08/16/24 Ja [facility] 08/10/24 documented as of this encounter
--- OUTSIDE RECORDS SUMMARY | 2024-09-05 17:53 | XMS_ITS | Encounter Summary ---
Author Organization [employer] Address 75 [facility] 7t [place] [address] Care Team Providers Care [employer] Gunsmith Name Role Phone Amanda Watkins MD Primary Care Provide r Hiro Ram Unavailable Unavailable Reason for Visit * Reason Onset Date Comments No Show 08/16/2024 Encounter Details Date Type Department Care Team ([facility] st Contact Info) Description 08/16/2024 Telephone [facility] [address] [place] [address] Amanda Watkins MD [address] [place] [address] No Show Social History Tobacco Use Types [...] EST Clinical Support [facility] [address] [place] [address] 09/07/2024 2:00 PM EST Telemedicine [address] [address] Kayley Alanis, RN 09/14/2024 11:00 AM EST Telemedicine [facility] [address] [place] [address] 09/15/2024 1:00 PM EST Medication Management [facility] [address] [place] [address] Raad Arias, PharmD [address] [place] [address] 10/24/2024 2:00 PM EDT Office Visit [facility] OPTOMETRY [address] [place] [address] Elisa Cummings, OD [address] [place] [address] documented as of this encounter Visit Diagnoses Not on filedocumented in this encounter Additional Health Concerns Assessment Noted Time PHQ-9 Depression Total Score: 10 024 3:23 PM EDT documented as of this encounter Care Teams [employer] Gunsmith Relationship Specialty Start Date End Date Amanda Watkins MD [address] [place] [address] PCP - General Family Medicine 04/07/19 Hiro Ram FNP [address] [place] [address] Nurse Practitioner Family Medicine 07/06/23 [facility] 07/03/22 08/16/24 Ja [facility] 08/10/24 documented as of this encounter
--- OUTSIDE RECORDS SUMMARY | 2024-09-05 17:53 | XMS_ITS | Encounter Summary ---
Author Organization [employer] Address 75 [facility] 7t [place] [address] Care Team Providers Care Executive Staff Assistant Name Role Phone Amanda Watkins MD Primary Care Provide r Hiro Ram Unavailable Unavailable Reason for Visit * Reason Onset Date Comments Hospital Follow-up 03/23/2024 Encounter Details Date Type Department Care Team (Late st Contact Info) Description 03/23/2024 Telephone [facility] MED[facility] [address] [place] [address] Amanda Watkins MD [address] [place] [address] Hospital Follow-up Social History Tobacco Use Types [...] from pt requesting a HDF appt. Hospital: [facility] Date of admission: 03/18 Discharge date: 03/21 Diagnosed: Cellulitis documented in this encounter Plan of Treatment Upcoming Encounters Date Type Department Care Team (Late st Contact Info) Description 09/06/2024 10:00 AM EST Clinical Support [facility] MED[facility] [address] [place] [address] 09/07/2024 2:00 PM EST Telemedicine [address] [address] Kayley Alanis, RN 09/14/2024 11:00 AM EST Telemedicine [facility] [address] [place] [address] 09/15/2024 1:00 PM EST Medication Management [address] [address] Raad Arias, PharmD [address] [place] [address] 10/24/2024 2:00 PM EDT Office Visit [facility] OPTOMETRY [address] [place] [address] Emiliano Elisa, OD [address] [place] [address] documented as of this encounter Visit Diagnoses Not on filedocumented in this encounter Additional Health Concerns Assessment Noted Time PHQ-9 Depression Total Score: 10 024 3:23 PM EDT documented as of this encounter Care Teams Executive Staff Assistant Relationship Specialty Start Date End Date Amanda Watkins MD [address] [place] [address] PCP - General Family Medicine 04/07/19 Hiro Ram FNP [address] [place] [address] Nurse Practitioner Family Medicine 07/06/23 [facility] 07/03/22 08/16/24 Ja [facility] 08/10/24 documented as of this encounter
--- OUTSIDE RECORDS SUMMARY | 2024-09-05 17:53 | XMS_ITS | Encounter Summary ---
Author Organization [employer] Address 75 [facility] 7t [place] [address] Care Team Providers Care Punching Machine Operator Name Role Phone Amanda Watkins MD Primary Care Provide r Hiro Ram Unavailable Unavailable Reason for Visit * Reason Onset Date Comments CRITICAL RESULT 08/22/2024 Encounter Details Date Type Department Care Team ([facility] st Contact Info) Description 08/22/2024 Telephone [facility] [address] [place] [address] Amanda Watkins MD [address] [place] [address] CRITICAL RESULT Social History Tobacco Use Types [...] states that the pt is still at [facility] even though ED discharge documentation states that the pt was discharged home after being treated with fluids and insulin for hyperglycemia. Pt daughter Nai will confirm that the pt is home from [facility] and call back the office to let us know. Nai reminded of upcoming HDF appt with Dr. Adame on 09/01/2024. Nai stated understanding and was agreeable to this plan of care. * Telephone Encounter - Danyelle Huitron RN - 08/22/2024 2:10 PM EST Incoming call to the Critical Result line 08/22/24 at 2:11 PM Name of Caller/Facility:[facility] [address] Callback number: [phone] Reason for Call: GLUCOSE 555MG/dL DRAWN TODAY 08/22/24 AT 1300 Message to be forwarded to Amanda Adame MD and team nurses for follow up. Call to [employer] at both work and mobile number. Not in service. Call to daughter who is EC, not with patient, requests call to alt sister who is with patient now. [phone]. Call to this number provided, spoke with [...] Description 09/06/2024 10:00 AM EST Clinical Support [address] [address] 09/07/2024 2:00 PM EST Telemedicine [facility] [address] [place] [address] Kayley Alanis, PHILLIP 09/14/2024 11:00 AM EST Telemedicine [facility] [address] [place] [address] 09/15/2024 1:00 PM EST Medication Management [address] [address] Raad Arias, PharmD [address] [place] [address] 10/24/2024 2:00 PM EDT Office Visit [facility] OPTOMETRY [address] [place] [address] Elisa Cummings, OD [address] [place] [address] documented as of this encounter Visit Diagnoses Not on filedocumented in this encounter Additional Health Concerns Assessment Noted Time PHQ-9 Depression Total Score: 10 024 3:23 PM EDT documented as of this encounter Care Teams Punching Machine Operator Relationship Specialty Start Date End Date Amanda Watkins MD [address] [place] [address] PCP - General Family Medicine 04/07/19 Hiro Ram FNP [address] [place] [address] Nurse Practitioner Family Medicine 07/06/23 [facility]/10[facility] documented as of this encounter
--- OUTSIDE RECORDS SUMMARY | 2024-09-05 17:53 | XMS_ITS | Data Portability ---
Author Organization [employer] [address] Address [address] [place] [address] Care Team Providers Care Call Center Agent Name Role Phone HIM CCA OTHER [facility] OTHER Assessment Encounter Date Assessment Date Assessment LastModified by Organization Details LastModified Time 12/30/2023 12/30/2023 I provided real -time medical direction via phone for this encounter, and was available for additional phone based assistance as needed. I have reviewed and agree with the Assessment and Plan as documented by the Jail Officer. We discussed the diagnostic uncertainty of home [...] to call 911- verbalized understanding of instruction [email or web address] Not available 12/30/2023 14:22:44 02/09/2024 02/09/2024 I provided real -time medical direction via phone for this encounter, and was available for additional phone based assistance as needed. I have reviewed and agree with the Assessment and Plan as documented by the Jail Officer. We discussed the diagnostic uncertainty of home [...] to call 911- verbalized understanding of instruction [email or web address] Not available 02/10/2024 00:01:48 03/27/2024 03/27/2024 I provided real -time medical direction via phone for this encounter, and was available for additional phone based assistance as needed. I have reviewed and agree with the Assessment and Plan as documented by the Jail Officer. We discussed the diagnostic uncertainty of home [...] to call 911- verbalized understanding of instruction [email or web address] Not available 03/27/2024 16:48:02 05/29/2024 05/29/2024 service [...] 024 [email or web address] [facility], [address] [place], [address], 4 14:21:33 glucose, fingerstick , blood 2023 024 [email or web address] [facility], [address] [place], [address], 4 16:33:19 culture, urine 2023 024 [place] [facility], [address] [place] [address], [address], 08:09:10 urinalysis, dipstick 2023 024 [place]IL [facility], [address] [place], [address], 20:30:58 Referral None recorded. Procedures None recorded. Surgeries None recorded. Imaging None recorded. Medication Orders doxycycline hyclate 100 mg capsule 2023 024 [facility], [address] [place] [address], [id number], 4 15:32:25 doxycycline hyclate 100 mg tablet 2023 024 [email or web address] 0 Not available 14:25:52 bacitracin 500 unit/gram topical ointment 2023 024 [email or web address] 0 Not available 14:25:53 mupirocin 2 % topical ointment 2023 024 [facility], [address] [place] [address], [id number], 4 15:32:25 doxycycline hyclate 100 mg tablet 2023 024 [email or web address] 0 [facility], [address] [place] [address], [id number], 4 16:35:58 doxycycline hyclate 100 mg capsule 2023 024 [id number], [address] [place], [address], 4 16:36:03 mupirocin 2 % topical ointment 2023 024 [facility] #[id number], [address] [place], [address], 4 16:36:03 bacitracin 500 unit/gram topical ointment 2023 024 [email or web address] 0 [facility], [address] [place] [address], [id number], 4 11:28:20 bacitracin 500 unit/gram topical ointment 2023 024 [facility], [address] [place] [address], [id number], 4 14:30:32 clotrimazol e 1 % topical cream 2023 024 [facility], [address] [place] [address], [id number], 4 10:37:01 Patient TargetsNo targets recorded. Patient Instructions Encounter Date Encounter Id Patient Instructions Last Modified By Organization Details Last Modified Time 12/30/2023 [id number] wound care* [email or web address] Not available 14:25:52 02/09/2024 [id number] wound care* [email or web address] Not available 16:35:58 03/27/2024 [id number] wound care* [email or web address] Not available 11:28:21 Reason for Referral None Reported. Results Created Date Observation Date Name Description Value Unit Range Abnormal Flag Note LastModifiedBy Organization Detail LastModifiedTime 12/30/19 24 12/30/2023 gluco se, finge rstic k, blood Blood Glucose: mg/dl 185 Not Available [facility] [address] [place] [address], [id number], 12/30/2023 14:21:17 02/09/20 24 02/09/2024 gluco se, gemma rstic k, blood Blood Glucose: mg/dl 148 Not Available [facility] [address] [place] [address], [phone], 02/09/2024 16:30:22 05/29/20 24 05/31/2024 URINE CULTU RE,CO MPREH ENSIV E urine culture,comp rehensive Final report Not Available [facility] ([facility]) [address] [place], [address], 05/31/2024 08:09:10 05/29/20 24 05/31/2024 URINE CULTU RE,CO MPREH ENSIV E result 1 COMMEN T Mixed uroge nital mary Great er than 100,0 00 colon y formi ng units per mL Not Available [facility] ([facility]) [address] [place], [address], 05/31/2024 08:09:10 Result Notes None recorded. Medical Equipment None Reported. Allergies Allergen ID Allergen Name Allergen Category Reaction Reaction Severity Criticality Documentation Date Start Date Code Code System Note Provider Name and Address Organization Details Recorded Time 5119 codeine medicatio n Not available Not available Not available 12/30/2023 8670 RxNorm Radha Foster MD [address] [place] [address],[address], [place], [phone], [facility] [employer] 14:14:47 Medications Name Sig Start Date Stop [...] /min 92 % 92 % 18 /min 566004. 632 g 98.4 [degF] 119 mm[Hg] 73 [...] [degF] 16 /min 92 % 92 % 158118. 184 g 126 mm[Hg] 76 mm[Hg] Not Available [employer] 4 16:16:18 Date Recorded Body temperature Oxygen saturation Oxygen saturation in Arterial blood by Pulse oximetry Body weight Respiratory rate Heart rate Systolic blood pressure Diastolic blood pressure Provider Name and Address Organization Details Last Updated DateTime 4 97.6 [degF] 96 % 96 % 542861. 592 g 16 /min 62 /min 130 mm[Hg] 66 mm[Hg] Not Available [employer] 4 15:32:02 Date Recorded Respiratory rate Oxygen saturation Oxygen saturation in Arterial blood by Pulse oximetry Body height Heart rate Body temperature Body weight Systolic blood pressure Diastolic blood pressure Provider Name and Address Organization Details Last Updated DateTime 4 16 /min 94 % 94 % 157.48 cm 60 /min 98.7 [degF] 488583. 448 g 129 mm[Hg] 77 mm[Hg] Not Available [employer] 4 11:19:40 Date Recorded Heart rate Body height Body temperature Respiratory rate Oxygen saturation Oxygen saturation in Arterial blood by Pulse oximetry Body weight Systolic blood pressure Diastolic blood pressure Provider Name and Address Organization Details Last Updated DateTime 4 58 /min 134.62 cm 99.3 [degF] 16 /min 95 % 95 % 640281. 632 g 150 mm[Hg] 73 mm[Hg] Not Available [employer] 4 17:02:13 Social History None recorded. Functional Status None recorded. Mental Status None recorded. Family History Nothing Reported. Medical History No medical history recorded. Gynecological HistoryNo gynecological history recorded. Obstetrics History GPAL:G 0 P 0 0 0 0 Past Encounters Encounter ID Performer Location Encounter Start Date Encounter Closed Date Diagnosis/Indication Diagnosis SNOMED-CT Code Diagnosis ICD10 Code Diagnosis Note [id number] Radha Foster MD [facility] [address] [place] [phone] 12/30/2023 14:10:14 12/31/2023 21:23:21 Cellulitis of lower limb 735243218 L03.119 left lower leg primarily ? starting on right- has percocet 10/325 q 12 hrs- may have otc tylenol 2 x per day in between-da [facility] confirms he has regular Tylenol at [...] better staph coverage-a dvised to apply sparingly. [id number] Radha Foster MD [facility] [address] [place] [phone] 02/09/2024 16:16:11 02/10/2024 13:33:55 Cellulitis of lower limb 514151137 L03.119 left lower leg primarily, less on right- had percocet 10/325 q 12 hrs- no longer on med list-may have otc tylenol 4 x per day in between-da [facility] confirms he has regular Tylenol at [...] better staph coverage-a dvised to apply sparingly. [id number] Angely Lake MD [facility] [address] [place] [phone] 02/23/2024 15:31:54 02/23/2024 22:21:20 Peripheral vascular disease 601114698 I73.9 73 year old female being evaluated [...] assessment and plan as documented by the hollow handle knife assembler. I provided real-time medical direction for this encounter and was immediatel y available to provide additional phone-base d assistance as needed. We discussed the diagnostic uncertaint y of home visits and associated risks. We discussed the need to seek care urgently/e mergently in the setting of any new or worsening symptoms. [id number] Radha Foster MD [facility] [address] [place] [phone] 03/27/2024 11:19:23 03/27/2024 22:47:07 Wound of skin 991273453 T14.8XXA Advised to elevate the leg/not use [...] reviewed she is only allergic to codeine. [id number] Len Nguyen MD [facility] [address] [place] [phone] 05/29/2024 17:02:10 05/30/2024 10:24:58 Tinea cruris 745315260 B35.6 Urinary symptoms 2067100 08 R39.9 Health Concerns Section Related Observation LastModified by Organization Detai ls LastModified Time None Recorded Concern Status LastModified by Organization Details LastModified Time None Recorded Advance Directives Directive None Recorded Payers Encounter Date Sequence Insurance Name Policy Number Policy Meza Covered Member ID Meza Member ID Guarantor Name 12/30/[address] [facility] [place] [place] - DOS ON OR AFTER 2022 - DUAL ELIGIBLE - CORRECTION OPTIONS AND ONE CARE (MEDICARE REPLACEMENT/ADV ANTAGE - HMO) Mary Loujack Garnero [employer] [id number] Mary Lou Z Sonido [employer] 02/09/2024 1 [facility] - DOS ON OR AFTER 2022 - DUAL ELIGIBLE - CORRECTION OPTIONS AND ONE CARE (MEDICARE REPLACEMENT/ADV ANTAGE - HMO) Mary Loujack Garnero [employer] [id number] Mary Loujack Garnero [employer] 02/23/2024 1 [employer] - DOS ON OR AFTER 2022 - DUAL ELIGIBLE - CORRECTION OPTIONS AND ONE CARE (MEDICARE REPLACEMENT/ADV ANTAGE - HMO) Mary Loujack Garnero [employer] [id number] Mary Lou Garnero [employer] 03/27/2024 1 [employer] [facility] - DOS ON OR AFTER 2022 - DUAL ELIGIBLE - CORRECTION OPTIONS AND ONE CARE (MEDICARE REPLACEMENT/ADV ANTAGE - HMO) Mary Loujack Garnero [employer] [id number] Mary Lou Garnero [employer] 05/29/2024 1 [employer] - DOS ON OR AFTER 2022 - DUAL ELIGIBLE - CORRECTION OPTIONS AND ONE CARE (MEDICARE REPLACEMENT/ADV ANTAGE - HMO) Mary Lou Garnero [employer] [id number] Mary Lou Garnero [employer] Notes Date Note [...] Baseline HCt: 37% Baseline Creatinine: 1.58 mg/dL Jail Officer POC Test Results from Jerman Anderson [facility] Blood Glucose Measurement (1) [15:13] Blood Glucose: 165 mg/dL ................... ................... ................... ................... ................... ................... ................... ........ Jail Officer Note From Jerman Anderson[facility]. Arrived to home where pt was with 2 daughters and RN from [facility]. Pt Estonian speaking only and daughter translated. Pt reports 2 weeks of left lower leg open wound consistent with cellulitis. Pt had previous infection on right leg back in october treated with doxycyline and healed. Images taken for [facility] review. Pt not reporting any pain with CSMs intact. Chronic lower extremity edema and numerous comorbidities. Blood glucose checked. V/S taken as listed. Pt afebrile. Lung sounds clear. [facility] Dr. Foster ordered 100 mg of doxycycline [...] breath, nausea vomiting diarrhea. Radha Foster MD [address] [place] [address],[address], [place], [phone], [facility] - [email or web address] [facility] 12/31/2023 15:30:41 02/09/2024 text/html HPI: PMHx: Varicose veinsCall [facility]. Reports pt having [...] daughter advised of dispsotiion, [facility]. Reviewed home care advise, ER precautions and reasons to call back. ................... ................... ................... ................... ................... ................... ................... ........ CRC Nurse Triage Notes (Melinda Melvin): Comments: CRC RN did not require any additional information to process this visit. Jail Officer POC Test Results from Jerman Anderson - [facility] Blood Glucose Measurement (16:42:48) Blood Glucose: 148 mg/dL ................... ................... ................... ................... ................... ................... ................... ........ Jail Officer Note From Jerman Anderson: [facility]. Pt presents conscious and alert. Pt Estonian speaking only so daughter translated. Daughter reports [...] as well. Blood glucose assessed. Consulted with [facility] Dr. Foster who prescribed additional course of [...] PCP in the office. Radha Foster MD [address] [place] [address],[address], [place], [phone], [employer] [facility] [employer] 02/10/2024 00:01:57 02/23/2024 text/html HPI: Patient has wounds on her lower legs. RN called for a member with DM and lower leg ulcers. He was seen on February 08 and completed the antibiotics, but the wounds do not look any better. Member has an appt on Wednesday , could not get her seen today and placed visit for .Prescribed doxy at [facility] visit ................... ................... ................... ................... ................... ................... ................... ........ CRC Nurse Triage Notes (Nicole Bell): Comments: CRC RN DID NOT NEED FURTHER INFO ................... ................... ................... ................... ................... ................... ................... ........ Jail Officer Note From Abelardo Castro: Pt daughter concerned for wound/celilitis on legs not healing after antibiotic treatment. Pt denies fever pain edema or wheeping. Baseline vitals assessed. Cellulitis appears to be in healing stages. No bleeding or wheeping. Pictures uploaded. Pt sts has appt with pcp on Wednesday. . [facility] contacted and [facility] spoke with pt and advised to monitor for worsening redness or edema. Pt advised to follow up with pcp. Pt education on signs indicating the ER. ................... ................... ................... ................... ................... ................... ................... ........ Disposition: Fulfilled Angely Lake MD [address] [place] [address],[address], [place], [phone], [employer] 02/23/2024 21:33:16 03/27/2024 text/html CRC Nurse Triage Notes (Rishi Domínguez): Reason For Request: left leg pain Chief Complaints: Pain PMH: Diabetes, Hypertension, COPD/Asthma Other Allergies: NKDA Comments: Mortgage Field Inspector verified the member's name//address and phone number. [...] ................... ................... ................... ................... ................... ................... ........ Jail Officer Note From Markell Villagomez: Pt? s daughter/CG reports pt was seen at [place] last week for cellulitis of the [...] ........ Disposition: Fulfilled Radha Foster MD [address] [facility],[address], [place], [phone], [facility] - [employer] 03/27/2024 16:49:56 05/29/2024 text/html HPI: pmhx: UTI, candidiasis of vagina UTI, urine retention.Call returned to [facility] to triage below. Reports having rash on callie area x 1 week. Per daughter no fluid filled spots. Small red pin point spots. Pt also having urinary frequency. Has applied Vaseline to area with mild relief. Per daughter concerned as pt is DM and has been scratching area concerned for infection. Unable to bring pt to [facility] at [facility] as pt is bed bound. Agrees to [employer] [employer] referral. Confirmed address, contact number and allergies. ................... ................... ................... ................... ................... ................... ................... ........ CRC Nurse Triage Notes (Melinda Melvin): Chief Complaints: Rash, UTI/Pyelonephritis PMH: COPD/Asthma, Diabetes, Hypertension, COPD/Asthma Other Allergies: CODIENE Comments: CRC RN did not require any additional information to process this visit. Jail Officer Organization Information for Jerman Anderson Business Legal Name: [employer] Address: [address] [place] [address], Postmaster: Jhon HERNANDEZ No.: [id number] Jail Officer POC Test Results from Jerman Anderson Blood [...] ................... ................... ................... ................... ................... ................... ........ Jail Officer Note From Jerman Anderson: [facility] visit for female pt. Pt presents with family and SCANNING TECH. Pt has reportedly had redness and irritation in her groin for 1 week in addition to high blood sugars. V/S taken as listed. Pt afebrile, though temp seems to be elevated with pt having taken acetaminophen today. SCANNING TECH changed pt's diaper and redness was noted in addition to smell consistent with possible fungal infection. Obtained urine sample positive for leukocytes and nitrates and blood and glucose. Blood glucose elevated at 335 mg/dL. Family reports difficulty maintaining blood sugar and that pt has not adhered to dietary restrictions. Urine culture obtained. Consulted with [facility] Dr. Nguyen who prescribed clotrimazole and ordered urine culture. Reviewed red flags for ED. Pt education provided. Culture delivered to [facility]. [facility] Lab Orders: culture, urine: Performed ................... ................... ................... ................... ................... ................... ................... ........ Disposition: Fulfilled Len Nguyen MD [address] [place] [address],[address], [place], [phone], [employer] [facility] [employer] 05/29/2024 22:50:45 OBGyn Episode No OBEpisode recorded.
--- OUTSIDE RECORDS SUMMARY | 2024-09-05 17:53 | XMS_ITS | Encounter Summary ---
Author Organization [employer] Address [address] [facility] [address] [place] [address] Care Team Providers Care Airline Mechanic Name Role Phone Amanda Watkins MD Primary Care Provide r Hiro Ram Unavailable Unavailable Reason for Visit * Reason Onset Date Comments Call Back Request 08/04/2024 Encounter Details Date Type Department Care Team ([facility] st Contact Info) Description 08/04/2024 Telephone [facility] [address] [place] [address] Amanda Watkins MD [address] [place] [address] Call Back Request Social History Tobacco Use [...] and incontinence supplies. Please contact Kayley at [phone]. documented in this encounter Plan of Treatment Upcoming Encounters Date Type Department Care Team (Late st Contact Info) Description 09/06/2024 10:00 AM EST Clinical Support [address] [address] 09/07/2024 2:00 PM EST Telemedicine [address] [address] Kayley Alanis RN 09/14/2024 11:00 AM EST Telemedicine [address] [address] 09/15/2024 1:00 PM EST Medication Management [address] [phone] Raad Arias, PharmD [address] [place] [address] 10/24/2024 2:00 PM EDT Office Visit [facility] [address] [place] [address] Elisa Cummings, OD [address] [place], [place] [phone] documented as of this encounter Visit Diagnoses Not on filedocumented in this encounter Additional Health Concerns Assessment Noted Time PHQ-9 Depression Total Score: 10 024 3:23 PM EDT documented as of this encounter Care Teams Airline Mechanic Relationship Specialty Start Date End Date Amanda Watkins MD [address] [place] [address] PCP - General Family Medicine 04/07/19 Hiro Ram FNP [address] [place] [address] Nurse Practitioner Family Medicine 07/06/23 [facility] 07/03/22 08/16/24 Ja [facility] 08/10/24 documented as of this encounter
--- OUTSIDE RECORDS SUMMARY | 2024-09-05 17:53 | XMS_ITS | Encounter Summary ---
Author Organization [employer] Address [address] [facility] [address] [place] [address] Care Team Providers Care Burial Agent Name Role Phone Amanda Watkins MD Primary Care Provide r Hiro Ram Unavailable Unavailable Reason for Visit * Reason Onset Date Comments Hospital Follow-up 08/16/2024 Encounter Details Date Type Department Care Team (Late st Contact Info) Description 08/16/2024 Telephone [facility] [address] [place] [address] Amanda Watkins MD [address] [place] [address] Hospital Follow-up Social History Tobacco Use Types [...] from pt requesting a HDF appt. Hospital: [facility] Date of admission: 08/12/24 Discharge date: 08/15/2024 Diagnosed: (water in the lungs) *Send message to [facility] Clinical Care Coordinators documented in this encounter Plan of Treatment Upcoming Encounters Date Type Department Care Team (Late st Contact Info) Description 09/06/2024 10:00 AM EST Clinical Support [address] [address] 09/07/2024 2:00 PM EST Telemedicine [address] [address] Kayley Alanis, PHILLIP 09/14/2024 11:00 AM EST Telemedicine [address] [address] 09/15/2024 1:00 PM EST Medication Management [address] [address] Raad Arias, PharmD [address] [place] [address] 10/24/2024 2:00 PM EDT Office Visit [facility] [address] [place], [place] [phone] Elisa Cummings, OD [address] [place], [place] [phone] documented as of this encounter Visit Diagnoses Not on filedocumented in this encounter Additional Health Concerns Assessment Noted Time PHQ-9 Depression Total Score: 10 024 3:23 PM EDT documented as of this encounter Care Teams Burial Agent Relationship Specialty Start Date End Date Amanda Watkins MD [address] [place], [place] [phone] PCP - General Family Medicine 04/07/19 Hiro Ram FNP [address] [place] [address] Nurse Practitioner Family Medicine 07/06/23 [facility] 07/03[facility]22 [facility] documented as of this encounter
--- OUTSIDE RECORDS SUMMARY | 2024-09-05 17:53 | XMS_ITS | Encounter Summary ---
Author Organization [employer] Address 75 [facility] 7t [place] [address] Care Team Providers Care Instrumentation And Controls Designer Name Role Phone Amanda Watkins MD Primary Care Provide r Hiro Ram Unavailable Unavailable Reason for Visit * Reason Comments Med Refill Encounter Details Date Type Department Care Team (Late st Contact Info) Description 07/05/2024 Refill [facility] [address] [place] [address] Amanda Watkins MD [address] [place] [address] Social History Tobacco Use Types Packs/Day Years [...] Clinical Support [facility] [address] [place] [address] 09/07/2024 2:00 PM EST Telemedicine [facility] [address] [place] [address] Kayley Alanis, PHILLIP 09/14/2024 11:00 AM EST Telemedicine [facility] [address] [place] [address] 09/15/2024 1:00 PM EST Medication Management [facility] [address] [place] [address] Raad Arias, PharmD 230 [place] [address] 10/24/2024 2:00 PM EDT Office Visit [facility] OPTOMETRY [address] [place] [address] Elias Cummings, OD 230 [place] [address] documented as of this encounter Visit Diagnoses Not on filedocumented in this encounter Additional Health Concerns Assessment Noted Time PHQ-9 Depression Total Score: 10 024 3:23 PM EDT documented as of this encounter Care Teams Instrumentation And Controls Designer Relationship Specialty Start Date End Date Amanda Watkins MD 230 [place] [address] PCP - General Family Medicine 04/07/19 Hiro Ram FNP [address] [place] [address] Nurse Practitioner Family Medicine 07/06/23 [facility] 07/03/22 08/16/24 Ja [facility] 08/10/24 documented as of this encounter
--- OUTSIDE RECORDS SUMMARY | 2024-09-05 17:53 | XMS_ITS | Encounter Summary ---
Author Organization [employer] Address 75 [facility] 7t [place] [address] Care Team Providers Care Teacher Of The Hearing Impaired Name Role Phone Amanda Watkins MD Primary Care Provide r Hiro Ram Unavailable Unavailable Reason for Visit * Reason Onset Date Comments CGM reader PA 08/15/2024 Encounter Details Date Type Department Care Team (Late st Contact Info) Description 08/15/2024 Refill [facility] MEDICINE 230 [place] [address] Dennis Natarajan, PHILLIP [address] [place] [address] Type 2 diabetes mellitus with other specified complication, with long-term current use of insulin ([facility]) Social History Tobacco Use Types Packs/Day Years [...] RX being sent today and re-faxed to [phone]. Confirmation page received. * Addendum Note - Dennis Natarajan RN - 08/22/2024 12:19 PM ESTAddended by: DENNIS NATARAJAN on: 08/22/2024 12:19 PM Modules accepted: Orders * Telephone Encounter - Dennis Natarajan RN - 08/22/2024 12:17 PM EST RN received notice from [facility] that start date of CGM reader needs to be within 6 months. Last RX sentfor reader is dated 10/25/23. Please send new RX for CGM reader in order for RN to re-submit PA. Thank you! * Telephone Encounter - Dennis Natarajan RN - 08/17/2024 11:25 AM EST Continuous Glucose Monitor Prior Authorization Documentation: CGM PA initiated for: [employer] [place] Insurance: CCA PA form completed and faxed to [phone]. Patient's preferred pharmacy: [facility] - [place], [place] - [address] [facility] [address] CGM PA should be approved by: 08/31/2024 [...] with the approval number regarding this patient. [facility] recommended a new PA be completed. RN [...] get in contact with patient). RN called [facility] pharmacy to further clarify. RN was informed the CGM sensors and the sen test strips are working and not requesting a PA however the CGM reader is requesting a PA. RN reviewed mediamanager and approval notice dated 07/25/24 in chart for sen test strips and reader. RN spoke to Justus at [facility] pharmacy who reports he is unsure why PA is not working for reader but is working for sen te st strips and sensors despite approval for reader and sensors being on the same approval notice. Justus is unsure if it is due to insurance change d/t beginning of year and [facility] benefit change. Justus agrees to call [facility] to further inquire and will update this financial underwriter. RN has faxed approval notice to [facility] pharmacy for Justus at [phone]. Confirmation page received. documented in this encounter Plan of Treatment Upcoming Encounters Date Type Department Care Team (Late st Contact Info) Description 09/06/2024 10:00 AM EST Clinical Support [facility] MEDICINE [address] [place] [address] 09/07/2024 2:00 PM EST Telemedicine [address] [address] Kayley Alanis RN 09/14/2024 11:00 AM EST Telemedicine [address] [address] 09/15/2024 1:00 PM EST Medication Management [address] [address] Raad Arias, PharmD [address] [place] [address] 10/24/2024 2:00 PM EDT Office Visit [facility] OPTOMETRY [address] [place] [address] Emiliano, Elisa, OD 230 [place] [address] documented as of this encounter Visit Diagnoses Diagnosis Type 2 diabetes mellitus with other specified complication, with long-term current use of insulin ([facility]) documented in this encounter Additional Health Concerns Assessment Noted Time PHQ-9 Depression Total Score: 10 024 3:23 PM EDT documented as of this encounter Care Teams Teacher Of The Hearing Impaired Relationship Specialty Start Date End Date Amanda Watkins MD [address] [place] [address] PCP - General Family Medicine 04/07/19 Hiro Ram FNP [address] [place] [address] [place] [address] Nurse Practitioner Family Medicine 07/06/23 [facility] 07/03/22 08/16/24 Ja [facility] 08/10/24 documented as of this encounter
--- OUTSIDE RECORDS SUMMARY | 2024-09-05 17:53 | XMS_ITS | Encounter Summary ---
Author Organization [employer] Address 75 [facility] 7t [place] [address] Care Team Providers Care Bicycle Subassembler Name Role Phone Amanda Watkins MD Primary Care Provide r Hiro Ram Unavailable Unavailable Reason for Visit * Reason Onset Date Comments Durable Medical Equipment 07/26/2024 Encounter Details Date Type Department Care Team (Late st Contact Info) Description 07/26/2024 Telephone [facility] MEDICINE 230 [place] [address] Amanda Watkins MD 230 [place] [address] Durable Medical Equipment Social History Tobacco Use [...] Daughter calling in regards to DME stating [facility] stating they do not take pt's insurance and was advised to have equipment send to another supply pharmacy. DME: [employer] Bed Pads Adult Diapers documented in this encounter Plan of Treatment Upcoming Encounters Date Type Department Care Team (Late st Contact Info) Description 09/06/2024 10:00 AM EST Clinical Support [facility] MEDICINE [address] [place] [address] 09/07/2024 2:00 PM EST Telemedicine [facility] MEDICINE [address] [place] [address] Kayley Alanis, RN 09/14/2024 11:00 AM EST Telemedicine [facility] MEDICINE [address] [place] [address] 09/15/2024 1:00 PM EST Medication Management [address] [address] Raad Arias, PharmD [address] [place] [address] 10/24/2024 2:00 PM EDT Office Visit [facility] OPTOMETRY [address] [place] [address] [phone] Emiliano, Elisa, OD 230 [place], [place] [phone] documented as of this encounter Visit Diagnoses Not on filedocumented in this encounter Additional Health Concerns Assessment Noted Time PHQ-9 Depression Total Score: 10 024 3:23 PM EDT documented as of this encounter Care Teams Bicycle Subassembler Relationship Specialty Start Date End Date Amanda Watkins MD 230 [place] [address] PCP - General Family Medicine 04/07/19 Hiro Ram FNP [address] [place] [address] Nurse Practitioner Family Medicine 07/06/23 [facility] 07/03/22 08/16/24 Ja [facility] 08/10/24 documented as of this encounter
--- OUTSIDE RECORDS SUMMARY | 2024-09-05 17:53 | XMS_ITS | Encounter Summary ---
Author Organization [employer] Address 75 [facility] 7t [place] [address] Care Team Providers Care Copper Plate Lithographer Name Role Phone Amanda Watkins MD Primary Care Provide r Hiro Ram Unavailable Unavailable Reason for Visit * Reason Comments Med Refill Encounter Details Date Type Department Care Team (Late st Contact Info) Description 08/08/2024 Refill [facility] [address] [place], [place] [phone] Amanda Watkins MD 230 [place] [address] Chronic bilateral low back pain with bilateral [...] 10:00 AM EST Clinical Support [facility] MEDICINE [address] [place] [address] 09/07/2024 2:00 PM EST Telemedicine [facility] [address] [place] [address] Kayley Alanis, PHILLIP 09/14/2024 11:00 AM EST Telemedicine [address] [address] 09/15/2024 1:00 PM EST Medication Management [address] [address] Raad Arias, PharmD 230 [place] [address] 10/24/2024 2:00 PM EDT Office Visit [facility] OPTOMETRY [address] [place] [address] Elisa Cummings, OD 230 [place] [address] documented as of this encounter Visit Diagnoses Diagnosis Chronic bilateral low back pain with bilateral sciatica documented in this encounter Additional Health Concerns Assessment Noted Time PHQ-9 Depression Total Score: 10 024 3:23 PM EDT documented as of this encounter Care Teams Copper Plate Lithographer Relationship Specialty Start Date End Date Amanda Watkins MD 230 [place] [address] PCP - General Family Medicine 04/07/19 Hiro Ram FNP 230 [place] [address] Nurse Practitioner Family Medicine 07/06/23 [facility] 07/03/22 08/16/24 documented as of this encounter
--- OUTSIDE RECORDS SUMMARY | 2024-09-05 17:53 | XMS_ITS | Encounter Summary ---
Author Organization [employer] Address 75 [facility] 7t [place] [address] Care Team Providers Care Scale Operator Name Role Phone Amanda Watkins MD Primary Care Provide r Hiro Ram Unavailable Unavailable Reason for Visit * Reason Comments Care Coordination Home Care Agency Encounter Details Date Type Department Care Team ([facility] st Contact Info) Description 08/17/2024 Telephone [facility] MEDICINE [address] [place] [address] Amanda Watkins MD [address] [place] [address] Care Coordination (Home Care Agency ) Social [...] EST Received start of care orders from [facility] with start date of 08/10/24. Patient has current plan of care orders with overlapping certification period from [employer] [facility]. Please verify if patient is active with both of these agencies. If patient active with both agencies, please discharge patient from one of these agencies and update Care Team with the appropriate VNA agency so that orders may be signed appropriately. documented in this encounter Miscellaneous Notes * Telephone Encounter - Temitope Natarajan RN - 08/17/2024 11:03 AM EST Noted. RN called [facility] [phone] who reports the patient is ACTIVE with them for PT only (patient last saw PT on 08/15/23). Patient used to receive usp BID but services were discontinued 07/26/24. RN called [facility] [phone] who reports the patient is also ACTIVE with them asof 08/10/24 for PT, OT and usp twice a week. NA received referral from patients recent [facility] admission. RN called patient [phone] to inquire which agency patient would like to stay active with as patient cannot have 2 VNA agencies. However, RN received automated recording the person you are calling cannot accept calls at this time . TC placed to [phone] however number is OOS. TC placed to , spoke to daughter who would like to stay with [facility] as patient is receiving more services with them vs [facility]. [facility] [phone] to notify them to discharge patient from services as patient will be receiving services from [facility]. Asset Protection Agent verbalized understanding and will notify team. TCplaced to [facility] [phone] to inform them to continue services with patient as [facility] will bed[facility] and they have been notified. [facility] verbalized understanding. Sending as FYI. documented in this encounter Plan of Treatment Upcoming Encounters Date Type Department Care Team (Late st Contact Info) Description 09/06/2024 10:00 AM EST Clinical Support [facility] MEDICINE [address] [place] [address] 09/07/2024 2:00 PM EST Telemedicine [facility] MEDICINE [address] [place] [address] Kayley Alanis, PHILLIP 09/14/2024 11:00 AM EST Telemedicine [facility] [address] [place] [address] 09/15/2024 1:00 PM EST Medication Management [facility] [address] [place] [address] Raad Arias, PharmD [address] [place] [address] 10/24/2024 2:00 PM EDT Office Visit [facility] OPTOMETRY [address] [place] [address] Elisa Cummings, OD 230 [place] [address] documented as of this encounter Visit Diagnoses Not on filedocumented in this encounter Additional Health Concerns Assessment Noted Time PHQ-9 Depression Total Score: 10 024 3:23 PM EDT documented as of this encounter Care Teams Scale Operator Relationship Specialty Start Date End Date Amanda Watkins MD [address] [place] [address] PCP - General Family Medicine 04/07/19 Hiro Ram FNP [address] [place] [address] Nurse Practitioner Family Medicine 07/06/23 Ja [facility] 08/10/24 documented as of this encounter
--- OUTSIDE RECORDS SUMMARY | 2024-09-05 17:53 | XMS_ITS | Clinical Summary ---
Author Organization [facility] Address 100 [facility] 20 0 [place] [address] Phone Care Team Providers Care Software Asset Manager Name Role Phone Amanda Watkins MD [...] Communication [facility] [address] [place] [phone] Rose Rubio from Last 3 Months [...] Visit [facility] [address] AGUILERA [address] [place] [phone] Tl Ibarra MD [address] [facility] [address] [place] [phone] Health Maintenance Due Date Last Done Comments [...] 06/23/2024, , 09/30/2017, Additional history exists Insurance [facility] ([id number]) [place] [id number] [facility] ([id number]) [place] [id number] Care Teams Software Asset Manager Relationship Specialty Start Date End Date Amanda Watkins MD [address] [place] [phone] PCP - General Internal Medicine 03/01/23
--- OUTSIDE RECORDS SUMMARY | 2024-09-05 17:53 | XMS_ITS | Encounter Summary ---
Author Organization [employer] Address 75 [facility] 7t [place] [address] Care Team Providers Care Petrographer Name Role Phone Amanda Watkins MD Primary Care Provide r Hiro Ram Unavailable Unavailable Reason for Visit * Reason Onset Date Comments BRANCH MAKER Forms 08/31/2024 Encounter Details Date Type Department Care Team ([facility] st Contact Info) Description 08/31/2024 Telephone [facility] MEDICINE 230 [place] [address] Kayley Alanis, RN BRANCH MAKER Forms Social History Tobacco Use Types Packs/Day [...] - 08/31/2024 10:03 AM EST TC via BLS#[id number], no answer. L/M asking she call back regarding BRANCH MAKER forms and appt 09/07/24. documented in this encounter Plan of Treatment Upcoming Encounters Date Type Department Care Team (Late st Contact Info) Description 09/06/2024 10:00 AM EST Clinical Support [facility] MEDICINE [address] [place] [address] 09/07/2024 2:00 PM EST Telemedicine [facility] MEDICINE [address] [place] [address] Kayley Alanis RN 09/14/2024 11:00 AM EST Telemedicine [facility] MEDICINE [address] [place] [address] 09/15/2024 1:00 PM EST Medication Management [facility] MEDICINE [address] [place] [address] Raad Arias, PharmD 230 [place] [address] 10/24/2024 2:00 PM EDT Office Visit [facility] OPTOMETRY [address] [place] [address] Elisa Cummings, OD [address] [place] [address] documented as of this encounter Visit Diagnoses Not on filedocumented in this encounter Additional Health Concerns Assessment Noted Time PHQ-9 Depression Total Score: 10 024 3:23 PM EDT documented as of this encounter Care Teams Petrographer Relationship Specialty Start Date End Date Amanda Watkins MD 230 [place] [address] PCP - General Family Medicine 04/07/19 Hiro Ram FNP [address] [place] [address] Nurse Practitioner Family Medicine 07/06/23 Ja [facility] 08/10/24 documented as of this encounter
--- OUTSIDE RECORDS SUMMARY | 2024-09-05 17:53 | XMS_ITS | Encounter Summary ---
Author Organization [employer] Address 75 [facility] 7t [place] [address] Care Team Providers Care Desk Officer Name Role Phone Amanda Watkins MD Primary Care Provide r Hiro Ram Unavailable Unavailable Reason for Visit * Reason Onset Date Comments Hospital Follow-up 04/04/2024 Encounter Details Date Type Department Care Team (Late st Contact Info) Description 04/04/[address] [facility] MEDICINE [address] [place] [address] Amanda Watkins MD 230 [place] [address] Hospital Follow-up Social History Tobacco Use Types [...] from pt requesting a HDF appt. Hospital: [facility] Date of admission: 03/18 Discharge date: 03/21 Diagnosed: Cellulitis documented in this encounter Plan of Treatment Upcoming Encounters Date Type Department Care Team (Late st Contact Info) Description 09/06/2024 10:00 AM EST Clinical Support [facility] MEDICINE [address] [place] [address] 09/07/2024 2:00 PM EST Telemedicine [facility] MEDICINE [address] [place] [address] Kayley Alanis, RN 09/14/2024 11:00 AM EST Telemedicine [facility] MED[facility]INE [address] [place] [address] 09/15/2024 1:00 PM EST Medication Management [address] [address] Raad Arias, PharmD 230 [place] [address] 10/24/2024 2:00 PM EDT Office Visit [facility] OPTOMETRY [address] [place] [phone] EmilianoElisa, OD 230 [place] [address] documented as of this encounter Visit Diagnoses Not on filedocumented in this encounter Additional Health Concerns Assessment Noted Time PHQ-9 Depression Total Score: 10 024 3:23 PM EDT documented as of this encounter Care Teams Desk Officer Relationship Specialty Start Date End Date Amanda Watkins MD 230 [place] [address] PCP - General Family Medicine 04/07/19 Hiro Ram FNP [address] [place] [address] Nurse Practitioner Family Medicine 07/06/23 [facility] 07/03/22 08/16/24 Ja [facility] 08/10/24 documented as of this encounter
--- OUTSIDE RECORDS SUMMARY | 2024-09-05 17:53 | XMS_ITS | Encounter Summary ---
Author Organization [employer] Address 75 [facility] 7t [place] [address] Care Team Providers Care Certified Pesticide Applicator Name Role Phone Amanda Watkins MD Primary Care Provide r Hiro Ram Unavailable Unavailable Reason for Visit * Reason Onset Date Comments NTTS 09/04/2024 Encounter Details Date Type Department Care Team ([facility] st Contact Info) Description 09/04/2024 Telephone [facility] MEDICINE [address] [place] [address] Temitope Natarajan RN 230 [place] [address] NTTS Social History Tobacco Use Types Packs/Day Years [...] Telephone Encounter - Temitope Natarajan RN - 09/04/2024 3:13 PM EST RN received 2 NTTS's from 09/01/2024 stating: I spoke with 2nd daughter who's getting someone and the other NTTS stated I have a critical value for a patient . Per NTTS RN's the call was re-directed to the answering service to be re- directed to MD. Upon chart review, datapower consultant provider contacted and provider spoke to patients family. TC placed to daughter [phone] who reports she is NOT with the patient at this time and advisedRN to call the patients niece at [phone]. RN called the patients nice [phone] however received automated recording the wireless caller you are calling is not available . RN unable to leaveVM. Family to f/u PRN. documented in this encounter Plan of Treatment Upcoming Encounters Date Type Department Care Team (Late st Contact Info) Description 09/06/2024 10:00 AM EST Clinical Support [facility] MEDICINE [address] [place] [address] 09/07/2024 2:00 PM EST Telemedicine [facility] MEDICINE [address] [place] [address] Kayley Alanis, RN 09/14/2024 11:00 AM EST Telemedicine [facility] MEDICINE [address] [place] [address] 09/15/2024 1:00 PM EST Medication Management [facility] MEDICINE [address] [place], [place] [phone] Raad Arias, PharmD 230 [place] [address] 10/24/2024 2:00 PM EDT Office Visit [facility] OPTOMETRY [address] [place] [address] Elisa Cummings, OD 230 [place] [address] documented as of this encounter Visit Diagnoses Not on filedocumented in this encounter Additional Health Concerns Assessment Noted Time PHQ-9 Depression Total Score: 0 09/01/19 1:18 PM EST documented as of this encounter Care Teams Certified Pesticide Applicator Relationship Specialty Start Date End Date Amanda Watkins MD [address] [place] [address] PCP - General Family Medicine 04/07/19 Hiro Ram FNP [address] [place] [address] Nurse Practitioner Family Medicine 07/06/23 [facility] 08/10/24 documented as of this encounter
--- OUTSIDE RECORDS SUMMARY | 2024-09-05 17:53 | XMS_ITS | Encounter Summary ---
Author Organization [employer] Address [address] [facility] 7t [place] [address] Care Team Providers Care Correctional Maintenance Technician Name Role Phone Amanda Watkins MD Primary Care Provide r Hiro Ram Unavailable Unavailable Reason for Visit * Reason Onset Date Comments HDF appointment 08/16/2024 Encounter Details Date Type Department Care Team (Late st Contact Info) Description 08/16/2024 Telephone [facility] [address] [place] [address] Temitope Natarajan, PHILLIP [address] [place] [address] HDF appointment Social History Tobacco Use Types [...] d/t admission diagnosis. TC placed to daughter [phone] to inform PCP would prefer to see [...] to come in person. Please contact at [phone] documented in this encounter Plan of Treatment Upcoming Encounters Date Type Department Care Team (Late st Contact Info) Description 09/06/2024 10:00 AM EST Clinical Support [facility] [address] [place] [phone] 09/07/2024 2:00 PM EST Telemedicine [address] [address] Kayley Alanis RN 09/14/2024 11:00 AM EST Telemedicine [address] [address] 09/15/2024 1:00 PM EST Medication Management [address] [address] Raad Arias, PharmD 230 [place] [address] 10/24/2024 2:00 PM EDT Office Visit [facility] [address] [place] [address] Elisa Cummings, OD 230 [place] [address] documented as of this encounter Visit Diagnoses Not on filedocumented in this encounter Additional Health Concerns Assessment Noted Time PHQ-9 Depression Total Score: 10 024 3:23 PM EDT documented as of this encounter Care Teams Correctional Maintenance Technician Relationship Specialty Start Date End Date Amanda Watkins MD [address] [place] [phone] PCP - General Family Medicine 04/07/19 Hiro Ram FNP [address] [place] [address] Nurse Practitioner Family Medicine 07/06/23 [facility] 07/03/22 08/16/24 [facility] 08/10/24 documented as of this encounter
--- OUTSIDE RECORDS SUMMARY | 2024-09-05 17:53 | XMS_ITS | Encounter Summary ---
Author Organization [employer] Address [address] [facility] 7t [place] [address] Care Team Providers Care Mechanical Intern Name Role Phone Amanda Watkins MD Primary Care Provide r Hiro Ram Unavailable Unavailable Encounter Details Date Type Department Care Team ([facility] st Contact Info) Description 08/22/2024 Orders Only [facility] [address] [place] [address] Amanda Watkins MD [address] [place], [place] [phone] Social History Tobacco Use Types Packs/Day Years [...] 10:00 AM EST Clinical Support [facility] [address] [place] [address] 09/07/2024 2:00 PM EST Telemedicine [address] [address] Kayley Alanis, PHILLIP 09/14/2024 11:00 AM EST Telemedicine [address] [address] 09/15/2024 1:00 PM EST Medication Management [facility] [address] [place] [address] Raad Arias, PharmD [address] [place] [address] 10/24/2024 2:00 PM EDT Office Visit [facility] [address] [place] [address] Elisa Cummings, OD 230 [place] [address] documented as of this encounter Procedures Procedure [...] Whole Blood 339(H) 60 - 115 mg/dL [facility] Comment:METER #: [id number] 08/22/2024 6:45 PM EST 08/22/2024 6:48 PM EST us Generic External Data Provider LAB BLOOD ORDERAB LES Final Result [facility] [address] [place] [phone] * (ABNORMAL) Basic Metabolic Panel (08/22/2024 6:33 PM EST) Pathologist [facility] Sodium 140 135 - 145 mmol/L [facility] Potassium 4.8 3.3 - 5.1 mmol/L [facility] Comment:Slight Hemolysis.Int erpret result with caution. Chloride 102 96 - 108 mmol/L [facility] Carbon Dioxide 33(H) 22 - 29 mmol/L [facility] Anion Gap 10(L) 12 - 20 [facility] Urea Nitrogen (BUN) 35(H) 9 - 16 mg/dL [facility] Creatinine, Serum 1.78(H) 0.5 - 1.4 mg/dL [facility] Creatinine Clr Calc Pharmacy 32.5 [facility] Comment:Provided height and weight: 167.64 cm,99.79 kg.eGFR (calculated from the MDRD study equation) and eCrCl(calculated from the Cockcroft-Gault equation) are based ondifferent parameters and may not yield comparable results.If eCrCl result is absurd, please check patient'sheight/weight. Estimated Glomerular Filt Rate 28 [facility] Comment:Chronic Kidney Disea se: Estimated GFR < 60 mL/min/1.64r9Akulrk Kidney Disease: Estimated GFR < 15 mL/min/1.73m2 Glucose 394(HH) 60 - 115 mg/dL [facility] Comment:Critical value for t est(s): GLUR Results called to and readback by: RASHEED Person calling: CHENTETyra Date: 08/22/24Time: 1857 Calcium 7.9(L) 8.4 - 10.2 mg/dL [facility] 08/22/2024 6:33 PM EST 08/22/2024 6:37 PM EST Generic External Data Provider LAB BLOOD ORDERAB LES Final Result Performing Organization Address [facility] Co de Phone Number [facility] [address] [place] [address] [phone] * Lactic Acid (08/22/2024 6:33 PM EST) Lactic Acid 1.9 0.5 - 2.0 mmol/L [facility] 08/22/2024 6:33 PM EST 08/22/2024 6:37 PM EST Generic External Data Provider LAB BLOOD ORDERAB LES Final Result Performing Organization Address [facility] de Phone Number [facility] [address] [place] [address] [phone] * XR Chest 2 Views (08/22/2024 5:51 PM EST) Anatomical Region Laterality Modality Chest Radiographic Franca ging 08/22/2024 5:51 PM EST Narrative 08/22/2024 5:53 PM EST ? [facility] ?[address] ?[place] [address] ?XRay Report ? Signed ? Patient: Sonido Cisneros,Mary Lou Z ?MR#: M ?? [id number] ? : 1950 ?Acct:[id number] ? Age/Sex: 74 / F ?ADM Date: 08/22/24 ? Loc: HO.ED ? Attending Dr: ? Ordering Physician: Joel Becker DO ?? Date of Service: 08/22/24 ?? Procedure(s): XR chest 2V ?? Accession Number(s): [id number] ? cc: Amanda Watkins MD; Joel Becker [...] signed by Danyelle Bills MD in OV> ?01/14/25 1752 ? DD/ 1751 ? TD/TT: 08/22/24 1751 ? Inhalation Therapist: ? Procedure Note Rayter, Image - 08/22/2024 [place] [address] XRay Report Signed Patient: Mary Lou Godwin ZMR#: M [id number] : 9Acct:[id number] Age/Sex: 74 / FADM Date: 08/22/24 Loc: HO.ED Attending Dr: Ordering Physician: Joel Becker DO Date of Service: 08/22/24 Procedure(s): XR chest 2V Accession Number(s): [id number] cc: Amanda Watkins MD; Joel Becker DO [...] in OV> 08/22/241751 DD/ 50 TD/TT: 08/22/241750 Inhalation Therapist: [facility] External Provider IMG XR PROCEDURES Final Result * (ABNORMAL) Glucose, Whole Blood (08/22/2024 5:09 PM EST) Pathologist [facility] Glucose, Whole Blood 424(HH) 60 - 115 mg/dL [facility] Comment:METER #: [id number] 08/22/2024 5:09 PM EST 08/22/2024 5:12 PM EST Generic External Data Provider LAB BLOOD ORDERAB LES Final Result [facility] [address] [place] [phone] * (ABNORMAL) Basic Metabolic Panel (08/22/2024 12:56 PM EST) Pathologist [facility] Sodium 135 135 - 145 mmol/L [facility] Potassium 4.8 3.3 - 5.1 mmol/L [facility] Chloride 94(L) 96 - 108 mmol/L [facility] Carbon Dioxide 31(H) 22 - 29 mmol/L [facility] Anion Gap 15 12 - 20 [facility] Urea Nitrogen (BUN) 38(H) 9 - 16 mg/dL [facility] Creatinine, Serum 1.94(H) 0.5 - 1.4 mg/dL [facility] Estimated Glomerular Filt Rate 25 [facility] Comment:Chronic Kidney Disea se: Estimated GFR < 60 mL/min/1.31g7Dwrruz Kidney Disease: Estimated GFR < 15 mL/min/1.73m2 Glucose 555(HH) 60 - 115 mg/dL [facility] Comment:Critical value for G REINA: Results called to and read backby:DANYELLE Yanez Person calling:BULMARO Date: 08-22-24 Time:1411 Calcium 8.4 8.4 - 10.2 mg/dL [facility] 08/22/2024 12:5 6 PM EST 08/22/2024 1:33 PM EST us Amanda Myers MD LAB BLOOD ORDERABLES Final Result [facility] [address] [place] [phone] [phone] documented in this encounter Visit Diagnoses Not on filedocumented in this encounter Additional Health Concerns Assessment Noted Time PHQ-9 Depression Total Score: 10 024 3:23 PM EDT documented as of this encounter Care Teams Mechanical Intern Relationship Specialty Start Date End Date Amanda Watkins MD [address] [place] [address] PCP - General Family Medicine 04/07/19 Hiro Ram FNP [address] [place] [address] Nurse Practitioner Family Medicine 07/06/23 [facility] 08/10/24 documented as of this encounter
--- OUTSIDE RECORDS SUMMARY | 2024-09-05 17:53 | XMS_ITS | Encounter Summary ---
Author Organization [employer] Address [address] [facility] 7t [place] [address] Care Team Providers Care Screw Machine Tender Name Role Phone Amanda Watkins MD Primary Care Provide r Hiro Ram Unavailable Unavailable Reason for Visit * Reason Onset Date Comments Durable Medical Equipment 05/11/2024 Encounter Details Date Type Department Care Team (Late st Contact Info) Description 05/11/2024 Telephone [facility] [address] [place] [address] Amanda Watkins MD [address] [place] [address] Durable Medical Equipment Social History Tobacco Use [...] Description 09/06/2024 10:00 AM EST Clinical Support [address] [address] 09/07/2024 2:00 PM EST Telemedicine [address] [address] Kayley Alanis, PHILLIP 09/14/2024 11:00 AM EST Telemedicine [address] [address] 09/15/2024 1:00 PM EST Medication Management [address] [phone] Raad Arias, PharmD [address] [place] [address] 10/24/2024 2:00 PM EDT Office Visit [facility] [address] [place], [place] [phone] Elisa Cummings, OD [address] [place], [place] [phone] documented as of this encounter Visit Diagnoses Not on filedocumented in this encounter Additional Health Concerns Assessment Noted Time PHQ-9 Depression Total Score: 10 024 3:23 PM EDT documented as of this encounter Care Teams Screw Machine Tender Relationship Specialty Start Date End Date Amanda Watkins MD [address] [place], [place] [phone] PCP - General Family Medicine 04/07/19 Hiro Ram FNP [address] [place] [address] Nurse Practitioner Family Medicine 07/06/23 [facility] 07/03/22 08/16/24 [facility] 08/10/24 documented as of this encounter
--- OUTSIDE RECORDS SUMMARY | 2024-09-05 17:53 | XMS_ITS | Encounter Summary ---
Author Organization [employer] Address [address] [facility] 7t [place] [address] Care Team Providers Care Asset Protection Officer Name Role Phone Amanda Watkins MD Primary Care Provide r Hiro Ram Unavailable Unavailable Reason for Visit * Reason Comments Med Refill Encounter Details Date Type Department Care Team (Late st Contact Info) Description 11/18/2023 Refill [facility] [address] [place] [address] Hiro Ram FNP Social History Tobacco Use [...] Description 09/06/2024 10:00 AM EST Clinical Support [facility] [address] [place] [address] 09/07/2024 2:00 PM EST Telemedicine [address] [address] Kayley Alanis, PHILLIP 09/14/2024 11:00 AM EST Telemedicine [facility] [address] [place] [address] 09/15/2024 1:00 PM EST Medication Management [address] [address] Raad Arias, PharmD [address] [place] [address] 10/24/2024 2:00 PM EDT Office Visit [facility] [address] [place] [address] Elisa Cummings, OD [address] [place] [address] documented as of this encounter Visit Diagnoses Not on filedocumented in this encounter Additional Health Concerns Assessment Noted Time PHQ-9 Depression Total Score: 8 07/19/20 23 11:34 AM EST documented as of this encounter Care Teams Asset Protection Officer Relationship Specialty Start Date End Date Amanda Watkins MD [address] [place] [address] PCP - General Family Medicine 04/07/19 Hiro Ram FNP [address] [place] [address] Nurse Practitioner Family Medicine 07/06/23 [facility] 07/03/22 08/16/24 Ja [facility] 08/10/24 documented as of this encounter
--- OUTSIDE RECORDS SUMMARY | 2024-09-05 17:53 | XMS_ITS | Encounter Summary ---
Author Organization [employer] Address [address] [facility] 7t [place] [address] Care Team Providers Care Fowl Blood Tester Name Role Phone Amanda Watkins MD Primary Care Provide r Hiro Ram Unavailable Unavailable Encounter Details Date Type Department Care Team ([facility] st Contact Info) Description 08/25/2024 Telephone [facility] [address] [place] [address] Sia Leon, PharmD [address] [place] [address] Social History Tobacco Use Types Packs/Day Years [...] requesting CGM teach. Please reach out at [phone]. Thank you documented in this encounter Plan of Treatment Upcoming Encounters Date Type Department Care Team (Late st Contact Info) Description 09/06/2024 10:00 AM EST Clinical Support [facility] [address] [place] [address] 09/07/2024 2:00 PM EST Telemedicine [address] [address] Kayley Alanis, RN 09/14/2024 11:00 AM EST Telemedicine [facility] [address] [place] [address] 09/15/2024 1:00 PM EST Medication Management [facility] [address] [place] [address] Raad Arias, PharmD [address] [place] [address] 10/24/2024 2:00 PM EDT Office Visit [facility] [address] [place] [address] Elisa Cummings, OD [address] [place] [address] documented as of this encounter Visit Diagnoses Not on filedocumented in this encounter Additional Health Concerns Assessment Noted Time PHQ-9 Depression Total Score: 10 024 3:23 PM EDT documented as of this encounter Care Teams Fowl Blood Tester Relationship Specialty Start Date End Date Amanda Watkins MD [address] [place] [address] PCP - General Family Medicine 04/07/19 Hiro Ram FNP [address] [place] [address] Nurse Practitioner Family Medicine 07/06/23 Ja [facility] 08/10/24 documented as of this encounter
--- OUTSIDE RECORDS SUMMARY | 2024-09-05 17:53 | XMS_ITS | Encounter Summary ---
Author Organization [employer] Address [address] [facility] 7t [place] [address] Care Team Providers Care Upper Caser Name Role Phone Amanda Watkins MD Primary Care Provide r Hiro Ram Unavailable Unavailable Reason for Visit * Reason Onset Date Comments Med Refill 08/10/2024 Encounter Details Date Type Department Care Team (Late st Contact Info) Description 08/10/2024 Refill [facility] [address] [place] [address] Vilma Gilbert, PharmD [address] [place] [address] Social History Tobacco Use Types Packs/Day Years [...] and torsemide 20 mg were initiated at [facility] discharge from 06/20/24. Refills were requested from HDF provider, however patient no- showed HDF appointment, and is now out of medications. documented in this encounter Plan of Treatment Upcoming Encounters Date Type Department Care Team (Late st Contact Info) Description 09/06/2024 10:00 AM EST Clinical Support [address] [address] 09/07/2024 2:00 PM EST Telemedicine [address] [address] Kayley Alanis, RN 09/14/2024 11:00 AM EST Telemedicine [address] [address] 09/15/2024 1:00 PM EST Medication Management [address] [address] Raad Arias, Carlos [address] [place] [address] 10/24/2024 2:00 PM EDT Office Visit [facility] [address] [place], [place] [phone] Elisa Cummings, OD 230 [place], [place] [phone] documented as of this encounter Visit Diagnoses Not on filedocumented in this encounter Additional Health Concerns Assessment Noted Time PHQ-9 Depression Total Score: 10 024 3:23 PM EDT documented as of this encounter Care Teams [place]er Relationship Specialty Start Date End Date Amanda Watkins MD [address] [place], [place] [phone] PCP - General Family Medicine 04/07/19 Hiro Ram FNP [address] [place] [address] Nurse Practitioner Family Medicine 07/06/23 [facility] 07/03/22 08/16/24 [facility] 08/[facility]24 documented as of this encounter
--- OUTSIDE RECORDS SUMMARY | 2024-09-05 17:54 | XMS_ITS | Clinical Summary ---
Author Organization [facility] Address [address] [facility] 7[address] [place] [address] Care Team Providers Care Densitometer Reader Name Role Phone Amanda Watkins MD Primary [...] current use of insulin (CMS/[facility]) Use to test blood sugar 3 times daily 100 each 12 024 2024 Active Lancets miscIndications: Type 2 diabetes mellitus with hyperglycemia, with long-term current use of insulin ([facility]) Use to test blood sugar 3 times daily 100 each 2 Active Blood Glucose Monitoring Suppl (FreeStyle [place] Lite) w/Device kitIndications:T ype 2 diabetes mellitus with hyperglycemia, with long-term current use of insulin ([facility]) Use to test blood sugar 3 times daily 1 kit Active Continuous Glucose Sensor (FreeStyle Mickey 2 Sensor) miscIndications: Type 2 diabetes mellitus with other specified complication, with long-term current use of insulin ([facility]) Apply 1 sensor every 14 days 2 [...] day. 30 tablet 3 025 Active Nyamyc [id number] UNIT/GM powder Apply 1 Application. topically 2 times daily. Active Continuous Glucose Fare Collector (FreeStyle Mickey 2 Parkman) deviceIndication s:Type 2 diabetes mellitus with other specified complication, with long-term current use of insulin ([facility]) Scan sensor every 8 hours 1 each [...] hyperglycemia, with long-term current use of insulin ([facility]) Inject 0.75 mg under the skin 1 [...] mL 025 2024 Active Continuous Blood Gluc Fare Collector (All About Baby.Style Mickey 2 Parkman) deviceIndication s:Type 2 diabetes mellitus with other specified complication, with long-term current use of insulin ([facility]) Scan sensor every 8 hours 1 each [...] complication, with long-term current use of insulin ([facility]) INJECT 60 UNITS SUBCUTANEOUSLY EVERY MORNING 10 mL 2 024 2024 Discontinued(M ed list cleanup (will not trigger notification to Pharmacy)) Continuous Glucose Fare Collector (FreeStyle Mickey 2 Parkman) deviceIndication s:Type 2 diabetes mellitus with hyperglycemia, with long-term current use of insulin ([facility]) Scan sensor every 8 hours 1 each 2024 Discontinued Continuous Glucose Sensor (FreeStyle Mickey 2 Sensor) miscIndications: Type 2 diabetes mellitus with hyperglycemia, with long-term current use of insulin ([facility]) Apply 1 sensor every 14 days 2 each 2 09/01/ 2025 Discontinued glucose blood (FreeStyle Precision Enrique Test) test stripIndications :Type 2 diabetes mellitus with hyperglycemia, with long-term current use of insulin ([facility]) Use to test blood sugar 3 times [...] retiring, patient will be transferred to new [facility] psychiatric provider. Patient is aware that appointments will be via televisit. Any issues or concerns contact [facility]. All her questions were answered and I [...] and excersise -patient will be refer to picu nurse - Continue current medications, I can not [...] Encounters Date Type Department Care Team Description 09/04/2024 Telephone [facility] [address] [place] [address] Temitope Natarajan, PHILLIP NTTS 09/01/2024 1:00 PM EST Office Visit [facility] [address] [place] [address] Amanda Watkins MD Type 2 diabetes mellitus with hyperglycemia, with long-term current use of insulin ([facility]) (Primary Dx); Chronic diastolic congestive heart failure (CMS/[facility]); Acquired hypothyroidism; Primary hypertension; Allergic conjunctivitis of both eyes; Other constipation 09/01/2024 Telephone [facility] [address] [place] [address] Miguel Simmons FNP Wire Worker Documentation 09/01/2024 Orders Only [facility] [address] [place] [address] Amanda Watkins MD 09/01/2024 Travel 08/31/[address] [address] Amanda Watkins MD Durable Medical Equipment (L&C Form: Briefs and Underpads) 08/31/[address] [address] Kayley Alanis, RN ORGANIZATIONAL PSYCHOLOGIST Forms 08/25/[address] [address] Sia Leon, PharmD 08/22/2024 Orders Only [address] [address] Amanda Watkins MD 08/22/[address] [address] Amanda Watkins MD CRITICAL RESULT 08/17/[address] [address] Amanda Watkins MD Care Coordination (Home Care Agency ) 08/16/[address] [address] Temitope Natarajan, RN HDF appointment 08/16/[address] [address] Amanda Watkins MD No Show 08/16/2024 Patient Outreach [address] [address] Amanda Watkins MD Transition Of Care ([facility]) (HDF- scheduled and SDOH screening completed on 10/15/2023) 08/16/[address] [address] Amanda Watkins MD Hospital Follow-up 08/15/2024 Refill [facility] [address] [place] [address] Temitope Natarajan RN Type 2 diabetes mellitus with other specified complication, with long-term current use of insulin (CMS/HCC) 08/14/2024 Telephone [facility] [address] [place] [address] Lacey Quesada MD 08/10/2024 10:00 AM EST Telemedicine [facility] [address] [place] [address] Vilma Gilbert, PharmD Type 2 diabetes mellitus with hyperglycemia, with long-term current use of insulin (CMS/HCC) (Primary Dx); Essential (primary) hypertension; Stage 3b chronic kidney disease (CMS/HCC) 08/10/2024 Patient Outreach [address] [address] Amanda Watkins MD Pre-visit Planning ((Unable to reach for PVP screening, LVM)) 08/10/2024 Refill [facility] [address] [place] [address] Vilma Gilbert, PharmEmily 08/08/2024 Refill [facility] [address] [place] [address] Amanda Watkins MD Chronic bilateral low back pain with bilateral sciatica 08/04/2024 Telephone [facility] [address] [place] [address] Amanda Watkins MD Call Back Request 08/03/2024 Telephone [facility] [address] [place] [address] Arcelia Crokcer MA Durable Medical Equipment 08/03/[address] [address] Heather Cain RNsuperintendent terminal (CGM approval) 08/02/2024 Orders Only GENERIC EXTERNAL DATA DEPARTMENT Provider, Generic External Data 07/31/[address] [address] Kayley Alanis RN 07/28/2024 Travel 07/28/2024 Telephone [facility] [place] [address] Kayley Alanis, PHILLIP Recommend Tele Tier 2 07/27/2024 Telephone [facility] [address] [place] [address] Arcelia Crocker MA Durable Medical Equipment 07/26/2024 Telephone [facility] [address] [facility] [address] Amanda Watkins MD Durable Medical Equipment 07/25/2024 Telephone [facility] [address] [facility] [address] Amanda Watkins MD order; Durable Medical Equipment 07/24/2024 Telephone [facility] [address] [facility] [address] Wilfrido Durbin MA DME from HC&D 07/23/2024 Refill [facility] [address] [facility] [address] Amanda Watkins MD Acquired hypothyroidism 07/21/2024 Telephone [facility] [address] [facility] [place] [address] Arcelia Crocker MA Durable Medical Equipment 07/13/2024 Telephone [facility] [address] [facility] [place] [address] Ann Kulkarni, No Show 07/12/2024 Telephone [facility] [address] [facility] [place] [address] Arcelia Crocker MA Durable Medical Equipment 07/10/2024 Telephone [facility] [address] [facility] [address] Amanda Watkins MD Nurse Triage 07/10/2024 Refill [facility] [address] [facility] [address] Amanda Watkins MD Type 2 diabetes mellitus with other specified complication, with long-term current use of insulin ([facility]) 07/06/2024 Orders Only GENERIC EXTERNAL DATA DEPARTMENT Provider, Generic External Data 07/05/2024 Telephone [facility] [address] [place] [address] Arcelia Crocker MA Durable Medical Equipment 07/05/2024 Refill [facility] [address] [place] [address] Amanda Watkins MD 07/04/2024 Telephone [facility] [address] [place] [address] Aamnda Watkins MD callback requested 2024 Telephone [facility] [address] [place] [address] Temitope Natarajan, RN PA sensors 2024 Telephone [facility] [address] [place] [address] Arcelia Crocker MA Durable Medical Equipment 06/28/2024 Refill [facility] [address] [place] [address] Amanda Watkins MD Chronic bilateral low back pain with bilateral sciatica 06/28/2024 Telephone [facility] [address] [place] [address] Amanda Watkins MD Durable Medical Equipment 06/28/2024 Telephone [facility] [address] [place] [address] Amanda Watkins MD Medication 06/28/2024 Telephone [facility] [address] [place] [address] Amanda Watkins MD Referral 06/27/2024 Orders Only [facility] [address] [place] [address] Amanda Watkins MD 06/21/2024 Telephone [facility] [address] [place] [address] Amanda Watkins MD FYI 06/21/2024 Telephone [facility] [address] [place] [address] Amanda Watkins MD Nurse Triage 06/15/2024 Refill [facility] [address] [place] [address] Amanda Watkins MD Atrial fibrillation, unspecified type (CMS/HCC) 06/11/2024 Orders Only GENERIC EXTERNAL DATA DEPARTMENT Provider, Generic External Data 06/08/2024 Telephone [facility] [address] [place] [address] Heather Cain, PHILLIP Durable Medical Equipment 06/06/2024 Refill [facility] [address] [place] [address] Amanda Watkins MD from Last 3 Months [...] the past 12 months, has t he [employer], gas, oil or water company threatened to [...] AM EST Clinical Support [facility] [address] [place] [address] 09/07/2024 2:00 PM EST Telemedicine [address] [address] Kayley Alanis RN 09/14/2024 11:00 AM EST Telemedicine [address] [address] 09/15/2024 1:00 PM EST Medication Management [facility] [address] [place] [address] Raad Arias, PharmD [address] [place] [address] 10/24/2024 2:00 PM EDT Office Visit [facility] [address] [place] [address] Emiliano, Elisa, OD [address] [place] [address] Health Maintenance Due Date Last Done Comments CT Colonography 1950 Colonoscopy 1950 Colorectal Cancer Screening 1950 FIT DNA/Cologuard 1950 FIT 1950 FOBT 1950 Sigmoidoscopy 1950 Diabetes: Foot Exam 1959 Eye Exam 1959 Alcohol/Substance Use Screening 1961 Hepatitis C Screening 1967 DTaP/Tdap/Td Vaccines (1 - Tdap) 03/13/2006 03/12/2006 Zoster Vaccines (2 of 3) 07/26/2015 05/31/2015 Diabetes: Urine Protein Screening 08/04/2022 08/04/2021 COVID-19 Vaccine ( season) 2024 07/24/2021, 12/11/2020, 10/03/2020 RSV Patients and Patients Aged 60 years or older (1 - 1-dose 75+ series) 2024 SDOH Screening 10/14/2024 10/15/2023 Diabetes: Hemoglobin A1C 11/30/2024 025, 09/01/2024, 03/06/2024, Additional history exists Depression Screening 09/01/2025 09/01/2024, 09/01/19 25 Lipid Panel 09/01/2025 09/01/2024, 08/04/2021 Tobacco Screening 09/01/2025 09/01/2024 Hepatitis B Vaccines [...] T4, FREE Routine 09/01/2024 2:09 PM EST LIPID PANEL, STANDARD Routine 09/01/2024 2:09 PM EST HEMOGLOBIN A1C Routine 09/01/2024 2:09 PM EST TSH W/REFLEX TO FT4 Routine 09/01/2024 2 :09 PM EST Acquired hypothyroidism BASIC METABOLIC PANEL Routine 09/01/2024 2:09 PM EST Type 2 diabetes mellitus with hyperglycemia, with long-term current use of insulin ([facility]) POCT GLYCATED HEMOGLOBIN, TOTAL Routine 09/01/2024 1:24 PM EST Type 2 diabetes mellitus with hyperglycemia, with long-term current use of insulin ([facility]) POCT GLUCOSE Routine 09/01/2024 1:23 PM EST Type 2 diabetes mellitus with hyperglycemia, with long-term current use of insulin ([facility]) GLUCOSE, WHOLE BLOOD Routine 08/22/2024 6:45 PM [...] AM EST VENOUS BLOOD GAS Routine 06/11/2024 6:08 AM EST ALBUMIN, RANDOM URINE W/CREATININE Routine 08/04/2021 10:15 AM EST from Last 3 Months or Most Recently Relevant to Health Maintenance Results * (ABNORMAL) TSH W/Reflex to FT4 (09/01/2024 2:09 PM EST) TSH reflex Free T4 30.54(H) 0.32 - 4.0 uIU/mL [facility] Blood Venous blood specimen / Unknown 09/01/2024 2:09 PM EST 09/01/2024 4:09 PM EST us Amanda Myers MD LAB BLOOD ORDERABLES Final Result Performing Organization Address City/[facility]/ZIP Co de Phone Number [facility] [address] [place] [phone] * T4, Free (09/01/2024 2:09 PM EST) Free T4 (Free Thyroxine) 0.94 0.71 - 1.85 ng/dL [facility] 09/01/2024 2:09 PM EST 09/01/2024 4:09 PM EST us Amanda Myers MD LAB BLOOD ORDERABLES Final Result Performing Organization Address [facility]/ZIP Co de Phone Number [facility] [address] [place] [phone] * (ABNORMAL) Hemoglobin A1c (09/01/2024 2:09 PM EST) Hemoglobin A1c 11.4(H) <6.0 % [facility] Comment:Hemoglobin A1C Refer ence Range Adults: 4.8 - 6.0 % Non diabetic: < 6.0 % Goal: < 7.0 %Additional Action Suggested: > 8.0 %Note: Hemoglobin A1c results are invalid for patients with abnormal amounts of HbF. Blood transfusions may impact the HbA1c concentration in the patient sample. Estimated Average Glucose 280 mg/dL [facility] Comment:eAG = Estimated ave rage glucose which is %A1C expressed asaverage glucose, using the formula of the M4M-SmegzioWknucwi Glucose study (ADAG), Diabetes Care, Vol.31,#8,Mar. 2007 09/01/2024 2:09 PM EST 09/01/2024 4:09 PM EST us Amanda Myers MD LAB BLOOD ORDERABLES Final Result [facility] [address] [place] [address] [phone] * (ABNORMAL) Lipid Panel, Standard (09/01/2024 2:09 PM EST) Triglycerides 241(H) <150 mg/dL [facility] Comment:Desirable Triglyceri de: less than 150 mg/dLBorderline High Triglyceride 150-199 mg/dLHigh Triglyceride: 200-499 mg/dLVery High Triglyceride: greater than or equal to 5OO mg/dL Cholesterol 107 <200 mg/dL [facility] Comment:Desirable Cholestero l: less than 200 mg/dLBorderline High Cholesterol: 200-239 mg/dLHigh Cholesterol: greater than 239 mg/dL LDL Cholesterol Calculated 34 <100 mg/dL [facility] Comment:Desirable LDL: less than 100 mg/dLNear Optimal/Above Optimal LDL: 110- 129 mg/dLBorderline High LDL: 130-159 mg/dLHigh LDL: 160-189 mg/dLVery High LDL: greater than or equal to 190 mg/dL HDL Cholesterol 25(L) >40 mg/dL [facility] Comment:Desirable HDL: great er than 40 mg/dL Note: This HDL assay may give artificially low results in patients with liver disease. 09/01/2024 2:09 PM EST 09/01/2024 4:09 PM EST us Amanda Myers MD LAB BLOOD ORDERABLES Final Result Performing Organization Address [facility]/ZIP Co de Phone Number [facility] [address] [place] [address] [phone] * (ABNORMAL) Basic Metabolic Panel (09/01/2024 2:09 PM EST) Only the most recent of3 resultswithin the time period is included. Sodium 138 135 - 145 mmol/L [facility] Potassium 4.7 3.3 - 5.1 mmol/L [facility] Comment:Slight Hemolysis.Int erpret result with caution. Chloride 96 96 - 108 mmol/L [facility] Carbon Dioxide 33(H) 22 - 29 mmol/L [facility] Anion Gap 14 12 - 20 [facility] Urea Nitrogen (BUN) 32(H) 9 - 16 mg/dL [facility] Creatinine, Serum 1.58(H) 0.5 - 1.4 mg/dL [facility] Estimated Glomerular Filt Rate 32 [facility] Comment:Chronic Kidney Disea se: Estimated GFR < 60 mL/min/1.87k9Kotppz Kidney Disease: Estimated GFR < 15 mL/min/1.73m2 Glucose 434(HH) 60 - 115 mg/dL [facility] Comment:Critical value for t est(GLU): Results called to and readback by: MIGUEL MOY Person calling: ZULEMA Date:09/01/24 Time: 1914 Calcium 9.0 8.4 - 10.2 mg/dL [facility] Blood Venous blood specimen / Unknown 09/01/2024 2:09 PM EST 09/01/2024 4:09 PM EST us Amanda Myers MD LAB BLOOD ORDERABLES Final Result Performing Organization Address [facility] Co de Phone Number [facility] [address] [place] [address] [phone] * (ABNORMAL) POCT HGB A1C (09/01/2024 [...] Media Lot # [id number] Lot# Expiration Date Blood Capillary blood specimen / Unknown 09/01/2024 1:23 PM EST Amanda Myers MD POINT OF CARE TEST EN TER/EDIT ORDERABLES Final Result * (ABNORMAL) Glucose, Whole Blood (08/22/2024 6:45 PM EST) Only the most recent of5 resultswithin the time period is included. Pathologist [facility] Glucose, Whole Blood 339(H) 60 - 115 mg/dL [facility] Comment:METER #: [id number] 08/22/2024 6:45 PM EST 08/22/2024 6:48 PM EST Generic External Data Provider LAB BLOOD ORDERAB LES Final Result [facility] [address] [place] [phone] * Lactic Acid (08/22/2024 6:33 PM EST) Lactic Acid 1.9 0.5 - 2.0 mmol/L [facility] 08/22/2024 6:33 PM EST 08/22/2024 6:37 PM EST us Generic External Data Provider LAB BLOOD ORDERAB LES Final Result [facility] [address] [facility] [place] [address] [phone] * XR Chest 2 Views (08/22/2024 5:51 PM EST) Only the most recent of2 resultswithin the time period is included. Anatomical Region Laterality Modality Chest Radiographic Franca ging 08/22/2024 5:51 PM EST Narrative 08/22/2024 5:53 PM EST ? [facility] ?[address] ?[place] [address] ?XRay Report ? Signed ? Patient: Sonido Cisneros,Mary Lou Z ?MR#: [id number] ?? [id number] ? : 1950 ?Acct:[id number] ? Age/Sex: 74 / F ?ADM Date: 08/22/24 ? Loc: HO.ED ? Attending Dr: ? Ordering Physician: Joel Becker DO ?? Date of Service: 08/22/24 ?? Procedure(s): XR chest 2V ?? Accession Number(s): [id number] ? cc: Amanda Watkins MD; Joel Becker [...] by Danyelle Bills MD in OV> ?08/22/24 175 ? DD/ 175 ? TD/TT: 08/22/24 175 ? Pay Station Collector: ? Procedure Note Huan, Image - 08/22/[address] [address] XRay Report Signed Patient: Mary Lou Godwin ZMR#: [id number] : 9Acct:[id number] Age/Sex: 74 / FADM Date: 08/22/24 Loc: HO.ED Attending Dr: Ordering Physician: Joel Becker DO Date of Service: 08/22/24 Procedure(s): XR chest 2V Accession Number(s): [id number] cc: Amanda Watkins MD; Joel Becker DO [...] in OV> 08/22/241751 DD/ 50 TD/TT: 08/22/241750 Pay Station Collector: [facility] External Provider IMG XR PROCEDURES Final Result * (ABNORMAL) Drug Monitoring, Panel 1, Screen, Urine (08/02/2024 3:28 PM EST) Opiate Screen Urine Not Detected Not Detect [facility] Comment:Opiate cut-off is 30 0 ng/mL.Positive results are unconfirmed and should not be used fornon-medical purposes. Barbiturates, Urine Not Detected Not Detect [facility] Comment:Barbiturate cut-off is 200 ng/mL.Positive results are unconfirmed and should not be used fornon-medical purposes. Phencyclidine Screen Urine Not Detected Not Detect [facility] Comment:Phencyclidine cut-of f is 25 ng/mL.Positive results are unconfirmed and should not be used fornon-medical purposes. Amphetamine Screen Urine Not Detected Not Detect [facility] Comment:Amphetamine cut-off is 1000 ng/mL.Positive results are unconfirmed and should not be used fornon-medical purposes. Benzodiazepines Screen Urine Not Detected Not Detect [facility] Comment:Benzodiazepine cut-o ff is 200 ng/mL.Positive results are unconfirmed and should not be used fornon-medical purposes. Cocaine Screen Urine Not Detected Not Detect [facility] Comment:Cocaine cut-off is 3 00 ng/mL.Positive results are unconfirmed and should not be used fornon-medical purposes. Cannabinoid Screen Urine Not Detected Not Detect [facility] Comment:Cannabinoid cut-off is 50 ng/mL.Positive results are unconfirmed and should not be used fornon-medical purposes. Methadone Screen, Urine Not Detected Not Detect ng/mL [facility] Comment:Methadone cut-off is 300 ng/mL.Positive results are unconfirmed and should not be used fornon-medical purposes. FENTANYL URINE Not Detected Not Detect [facility] Comment:Fentanyl cut-off is 1 ng/mL.Positive results are unconfirmed and should not be used fornon-medical purposes. Oxycodone Urine Screen Positive(A) Not Detect ng/mL [facility] Comment:Oxycodone cut-off is 100 ng/mL.Positive results are unconfirmed and should not be used fornon-medical purposes. Buprenorphine Screen Not Detected Not Detect ng/mL [facility] Comment:Buprenorphine cut-of f is 5 ng/mL.Positive results are unconfirmed and should not be used fornon-medical purposes. 08/02/2024 3:28 PM EST 08/02/2024 3:31 PM EST us Generic External Data Provider LAB URINE ORDERAB LES Final Result [facility] [address] [place] [address] [phone] * (ABNORMAL) VENOUS BLOOD GAS (08/02/2024 3:24 PM EST) Only the most recent of2 resultswithin the time period is included. VBG pH 7.37 7.32 - 7.43 [facility] Comment:METER #: [id number] additional_comment: Cbzaluckj VBG PCO2 57 mmHg [facility] Comment:METER #: [id number] additional_comment: Cbzaluckj VBG PO2 56 mmHg [facility] Comment:METER #: [id number] additional_comment: Cbzaluckj VBG Base Excess 7.4 mmol/L [facility] Comment:METER #: [id number] additional_comment: Cbzaluckj VBG HCO3 33(H) 22 - 26 mmol/L [facility] Comment:METER #: [id number] additional_comment: Josephineluccaterina O2 Sat, Samuel 80.0 % [facility] Comment:METER #: [id number] additional_comment: Cbzaluccaterina 08/02/2024 3:24 PM EST 08/02/2024 3:28 PM EST us Generic External Data Provider LAB BLOOD ORDERAB LES Final Result Performing Organization Address City/[facility]/ZIP Co de Phone Number [facility] [address] [place] [phone] * Hold Green Gel (08/02/2024 3:19 PM EST) Pathologist [facility] Hold Green Gel See Note [facility] Comment:Specimen held untest ed for 24 hours; Call to requestChemistry testing. 08/02/2024 3:19 PM EST 08/02/2024 3:23 PM EST us Generic External Data Provider HISTORICAL/NON OR DERABLE LABS Final Result Performing Organization Address [facility]/ZIP Co de Phone Number [facility] [address] [place] [address] [phone] * Ethanol (08/02/2024 3:19 PM EST) Pathologist [facility] ETHANOL (MG/DL) IN SER/PLAS <10 mg/dL [facility] Comment:Serum/plasma ethanol results are to be used formedical/treatment purposes only. 08/02/2024 3:19 PM EST 08/02/2024 3:22 PM EST us Generic External Data Provider LAB BLOOD ORDERAB LES Final Result [facility] [address] [place] [address] [phone] * (ABNORMAL) CBC auto differential (08/02/2024 3:19 PM EST) [facility] White Blood Count 7.0 4.8 - 10.8 X10*3/uL [facility] Red Blood Count 3.49(L) 4.20 - 5.50 X10*6/uL [facility] Hemoglobin 7.4(L) 12.0 - 16.0 g/dl [facility] Hematocrit 25.3(L) 37.0 - 47.0 % [facility] Mean Corpuscular Volume 72.5(L) 80.0 - 98.0 fL [facility] Mean Corpuscular Hemoglobin 21.2(L) 27.0 - 33.0 pg [facility] Mean Corpuscular HGB Conc 29.2(L) 31.0 - 35.0 g/dl [facility] Red Cell Distribution Width 17.9(H) 11.0 - 16.0 % [facility] Platelet Count 367 160 - 400 X10*3/uL [facility] Mean Platelet Volume 10.5 9.4 - 12.3 fL [facility] Neutrophils Percent Auto 68.7 45 - 73 % [facility] Imm Gran Pct Auto 1.7(H) 0.0 - 0.4 % [facility] Lymphocytes Percent Auto 17.8(L) 20 - 40 % [facility] Monocytes Percent Auto 6.2 2 - 11 % [facility] Eosinophils Percent Auto 4.6(H) 0 - 4 % [facility] Basophils Percent Auto 1.0 0 - 2 % [facility] NRBC Pct Auto 0.9(H) 0.0 - 0.2 /100WBC [facility] Neutrophils Absolute Auto 4.8 2.0 - 8.3 x10*3/uL [facility] Imm Gran Abs Auto 0.12(H) 0.00 - 0.03 X10*3/uL [facility] Lymphocytes Absolute Auto 1.2 1.2 - 4.9 X10*3/uL [facility] Monocytes Absolute Auto 0.4 0.1 - 1.2 X10*3/uL [facility] Eosinophils Absolute Auto 0.3 0.0 - 0.4 X10*3/uL [facility] Basophils Absolute Auto 0.1 0.0 - 0.2 X10*3/uL [facility] NRBC Abs Auto 0.060(H) 0.0 - 0.012 X10*3/uL [facility] 08/02/2024 3:19 PM EST 08/02/2024 3:22 PM EST us Generic External Data Provider LAB BLOOD ORDERAB LES Final Result Performing Organization Address City/State/[facility] Co de Phone Number [facility] [address] [place] [phone] * (ABNORMAL) Prothrombin Time-INR (08/02/2024 3:19 PM EST) Prothrombin Time 19.3(H) 10.9 - 12.4 SEC [facility] INTERNATIONAL NORM RATIO 1.7(H) 0.9 - 1.1 [facility] Comment:INTERNATIONAL NORMAL IZED RATIO (INR) [...] ORDERAB LES Final Result Performing Organization Address [facility] Co de Phone Number [facility] [address] [place] [address] [phone] * Beta-Hydroxybutyrate (07/06/2024 2:14 AM EST) Beta-Hydroxybut yrate 0.09 0.02 - 0.27 mmol/L [facility] 07/06/2024 2:14 AM EST 07/06/2024 2:16 AM EST Generic External Data Provider LAB BLOOD ORDERAB LES Final Result Performing Organization Address [facility] Phone Number [facility] [address] [place] [address] [phone] * (ABNORMAL) Comprehensive Metabolic Panel (07/06/2024 2:14 AM EST) Sodium 134(L) 135 - 145 mmol/L [facility] Potassium 5.0 3.3 - 5.1 mmol/L [facility] Comment:Slight Hemolysis.Int erpret result with caution. Chloride 92(L) 96 - 108 mmol/L [facility] Carbon Dioxide 32(H) 22 - 29 mmol/L [facility] Anion Gap 15 12 - 20 [facility] Urea Nitrogen (BUN) 41(H) 9 - 16 mg/dL [facility] Creatinine, Serum 2.41(H) 0.5 - 1.4 mg/dL [facility] Creatinine Clr Calc Pharmacy 23.2 [facility] Comment:Provided height and weight: 160.02 cm,103.7 kg.eGFR (calculated from the MDRD study equation) and eCrCl(calculated from the Cockcroft-Gault equation) are based ondifferent parameters and may not yield comparable results.If eCrCl result is absurd, please check patient'sheight/weight. Estimated Glomerular Filt Rate 20 [facility] Comment:Chronic Kidney Disea se: Estimated GFR < 60 mL/min/1.92o3Vuiyst Kidney Disease: Estimated GFR < 15 mL/min/1.73m2 Glucose 451(HH) 60 - 115 mg/dL [facility] Comment:Critical value for t est(s):GLUC Results called to and readback by: GERRY Person calling: VYASRID Date: [id number] Calcium 8.2(L) 8.4 - 10.2 mg/dL [facility] Bilirubin, Total 0.3 0.0 - 1.0 mg/dL [facility] Aspartate Amino Transferase 29 5 - 31 U/L [facility] Comment:Slight Hemolysis.Int erpret result with caution. Alanine Aminotransferase 11 0 - 31 U/L [facility] Total Protein 6.3(L) 6.5 - 8.0 g/dL [facility] Albumin Level 3.0(L) 3.5 - 5.0 g/dL [facility] Alkaline Phosphatase 61 39 - 117 U/L [facility] 07/06/2024 2:14 AM EST 07/06/2024 2:16 AM EST us Generic External Data Provider LAB BLOOD ORDERAB LES Final Result Performing Organization Address City/State/[facility] Co de Phone Number [facility] [address], [place] [phone] * MR Narendra Claire w/ and w/o Contrast Left (06/19/2024 2:55 PM EST) Anatomical Region Laterality Modality Lower Extremities, Lower Leg Left Mag netic Resonance 06/19/2024 2:55 PM EST Narrative 06/19/2024 5:15 PM EST ? [facility] ?[address] ?[place] [address] ? Magnetic Resonance Report ? Signed ? Patient: Sonido Cisneros,Mary Lou Z ?MR#: M ?? [id number] ? : 1950 ?Acct:[id number] ? Age/Sex: 73 / F ?ADM Date: 11/03/24 ? Loc: [facility] ?473-1 ? Attending Dr: Everett Bran MD ? Ordering Physician: Everett Bran MD ?? Date of Service: 06/19/24 ?? Procedure(s): MR Tibia LT wo/w Contrast ?? Accession Number(s): [id number] ? cc: Amanda Watkins MD; Everett Bran [...] the ?? proximal distal ends of the olmdv-ty-povn examinations including the ?? ankle and partially visualized knee joint ??. ? Possible nondisplaced tibial plateau fracture. Question edema ?? surrounding the suspected fracture line. This area is limited given the ?? artifact and image distortion because it is at the edge of the ?? snnmk-lr-goxe exam ? The marrow in the tibia [...] Awad MD ??06/19/2024 05:12 PM ?? EST ? Dictated By: ?Oliver Awad MD ? Signed By: ?<Electronically signed by Oliver Awad MD in OV> ?06/19/24 1712 ? DD/ 1455 ? TD/TT: 06/19/24 1530 ? Pay Station Collector: WG ? Procedure Note Huan, Image - 06/20/2024 [place] [address] Magnetic Resonance Report Signed Patient: Mary Lou Godwin ZMR#: M [id number] : 9Acct:[id number] Age/Sex: 73 / FADM Date: 06/11/24 Loc: [facility] 473-[address]: Everett Bran MD Ordering Physician: Everett Bran MD Date of Service: 06/19/24 Procedure(s): MR Tibia LT wo/w Contrast Accession Number(s): [id number] cc: Amanda Watkins MD; Everett Bran MD [...] along the proximal distal ends of the tbmay-ls-tcxy examinations including the ankle and partially visualized knee joint . Possible nondisplaced tibial plateau fracture. Question edema surrounding the suspected fracture line. This area is limited given the artifact and image distortion because it is at the edge of the fpuyj-we-vaqq exam The marrow in the tibia otherwise [...] Oliver Awad MD 06/19/2024 05:12 PM EST Dictated By: Oliver Awad MD Signed By: <Electronically signed by Oliver Awad MD inOV> 06/19/24 1712 DD/ 1455 TD/TT: 06/19/24 1530 Pay Station Collector: RAYMUNDO [facility] External Provider IMG MRI PROCEDURES Final Result * XR Tibia Fibula 2 Views Left (06/18/2024 11:00 AM EST) Anatomical Region Laterality Modality Lower Extremities, Lower Leg Left Rad iographic Imaging 06/18/2024 11:0 0 AM EST Narrative 06/18/2024 1:38 PM EST ? [facility] ?[address] ?[place] [address] ?XRay Report ? Signed with Addenda ? Patient: Sonido Cisneros,Mary Lou Z ?MR#: M ?? [id number] ? : 1950 ?Acct:[id number] ? Age/Sex: 73 / F ?ADM Date: 06/11/24 ? Loc: [facility] ?473-1 ? Attending Dr: Everett Bran MD ? Ordering Physician: Everett Bran MD ?? Date of Service: 06/18/24 ?? Procedure(s): XR tibia fibula LT 2V ?? Accession Number(s): [id number] ? cc: Amanda Watkins MD; Everett Bran MD ?ADDENDUM ? ADDENDUM #1 ? Results were received by Dr Bran on 06/18/2024 at 5:33 PM. ? Electronically signed by: ??Lindsey Weinberg MD ??06/18/2024 05:33 PM EST ?? RP ? Addendum Dictated By: ?Barb ??Lenard ? Addendum Signed By: ? <Electronically signed by Barb ??Lenard in OV> ? 06/18/24 1733 ?? Addendum Cosigned By: ? DD/ [...] ??Lindsey Weinberg MD ??06/18/2024 01:35 PM EST ? Dictated By: ?Barb Weinberg ? Signed By: ?<Electronically signed by Barb ??Lenard in OV> ? 06/18/24 1335 ? DD/ 1100 ? TD/TT: 06/18/24 1104 ? Pay Station Collector: ? Procedure Note Nancie Pressley - 06/18/2024 [facility] [address] [place] [address] XRay Report Signed with Addenda Patient: Mary Lou Godwin ZMR#: M [id number] : 9Acct:[id number] Age/Sex: 73 / FADM Date: 06/11/24 Loc: [facility] 473-[address]: Everett Bran MD Ordering Physician: Everett Bran MD Date of Service: 06/18/24 Procedure(s): XR tibia fibula LT 2V Accession Number(s): [id number] cc: Amanda Watkins MD; Everett Bran MD ADDENDUM ADDENDUM #1 Results were received by Dr Bran on 06/18/2024 at 5:33 PM. Electronically signed by: Lindsey Weinberg MD 06/18/2024 05:33 PM EST RP Addendum Dictated By: Barb Weinberg Addendum Signed By: <Electronically signed by Gladys in OV> 06/18/24 173 Addendum Cosigned By: DD/ /01/1100 TD/TT: 06/18/2406/01/1104 [...] OV> 06/18/24 1335 DD/ 99 TD/TT: 06/18/241103 Pay Station Collector: [facility] External Provider IMG XR PROCEDURES Edited Result - Final * (ABNORMAL) ALBUMIN, RANDOM URINE W/CREATININE (08/04/2021 10:15 AM EST) Microalbumin Urine 66.2 See Note: mg/dL [facility] Comment: Reference Range: ?? Reference Range Not established Verified by repeat analysis. ?? Microalb/Creat Ratio 480(H) <30 mcg/mg creat [facility] Comment: ?? The ADA defines [...] Creatinine, Urine 138 20 - 275 mg/dL [facility] 08/04/2021 10:1 5 AM EST us Ann Kulkarni DO LAB URINE ORDERABLES Final R esult [facility] [address] from Last 3 Months or Most Recently Relevant to Health Maintenance Insurance [address] [place] [phone] [facility] Care Teams Densitometer Reader Relationship Specialty Start Date End Date Amanda Watkins MD [address] [place] [address] PCP - General Family Medicine 04/07/19 Hiro Ram FNP [address] [place] [address] Nurse Practitioner Family Medicine 07/06/23 [facility] 08/10/24
--- OUTSIDE RECORDS SUMMARY | 2024-09-05 17:54 | XMS_ITS | Encounter Summary ---
Author Organization [facility][1] Address [address] [facility] [phone] Phone Care Team Providers Care Office Secretary Name Role Phone Amanda Watkins MD Primary Care Provide r Encounter Details Date Type Department Care Team (Late Contact Info) Description 08/11/2024 Office Communication [facility][1] [address] [phone] Rose Rubio [address] [phone] Social History Tobacco Use Types [...] Office Visit [facility] [address] [place] [phone] Tl Ibarra MD [address] [facility] [phone] documented as of this encounter Visit Diagnoses Not on filedocumented in this encounter Care Teams Office Secretary Relationship Specialty Start Date End Date Amanda Watkins MD [address] [facility] [address] [place] [phone] PCP - General Internal Medicine 03/01/23 documented as of this encounter
--- OUTSIDE RECORDS SUMMARY | 2024-09-05 17:54 | XMS_ITS | Encounter Summary ---
Author Organization [facility] Address [address] [facility] [address] [place] [address] Care Team Providers Care Tuna Purse Seiner Name Role Phone Amanda Watkins MD Primary Care Provide r Hiro Ram Unavailable Unavailable Encounter Details Date Type Department Care Team ([facility] st Contact Info) Description 06/27/2024 Orders Only [facility] MEDICINE [address] [place] [address] Amanda Watkins MD [address] [place] [address] Social History Tobacco Use Types Packs/Day Years [...] Description 09/06/2024 10:00 AM EST Clinical Support [facility] [address] [place] [address] 09/07/2024 2:00 PM EST Telemedicine [address] [address] Kayley Alanis, PHILLIP 09/14/2024 11:00 AM EST Telemedicine [address] [address] 09/15/2024 1:00 PM EST Medication Management [facility] [address] [place] [address] Raad Arias, PharmD [address] [place] [address] 10/24/2024 2:00 PM EDT Office Visit [facility] OPTOMETRY [address] [place] [address] Emiliano, Elisa, OD [address] [place] [address] documented as of this encounter Visit Diagnoses Not on filedocumented in this encounter Additional Health Concerns Assessment Noted Time PHQ-9 Depression Total Score: 10 024 3:23 PM EDT documented as of this encounter Care Teams Tuna Purse Seiner Relationship Specialty Start Date End Date Amanda Watkins MD [address] [place] [address] PCP - General Family Medicine 04/07/19 Hiro Ram FNP [address] [place] [address] Nurse Practitioner Family Medicine 07/06/23 [facility] 07/03/22 08/16/24 Ja [facility] 08/10/24 documented as of this encounter
--- NOTE | 2024-09-05 18:28 | ECG_ITS ---
Test Reason : HYPERGLYCEMIA Blood Pressure : */* mmHG Vent. Rate : 59 BPM Atrial Rate : 59 BPM P-R Int : 176 ms QRS Dur : 88 ms QT Int : 410 ms P-R-T Axes : 64 -37 -5 degrees QTcB Int : 407 ms Sinus bradycardia Left axis deviation Cannot rule out Anterior infarct (cited on or before 02-Aug-2024) Abnormal ECG When compared with ECG of 02-Aug-2024 14:52, QRS axis Shifted left Referred By: Kristi Sahni Electronically Signed By: JUANPABLO BOSS
--- NOTE | 2024-09-05 18:43 | ED.GENADULT ---
HPI - General Adult General Chief complaint: General Medical Stated complaint: high poc *366 Time Seen by Provider: 09/05/24 18:36 Source: patient Mode of arrival: ambulatory Limitations: no limitations History of Present Illness ED Provider: HPI narrative: Patient is diabetic noncompliant to diet on Lantus and Trulicity Lantus supposed to be 65 units at the time of discharge on 08/06 decreased to 50 units by the PCP as she is on Trulicity since then blood pressure been elevated read high mostly patient also is non compliant eats whatever she likes no fever no chills has superficial abrasion on shay of left leg from scratching Related Data Home Medications ?Medication ?Instructions ?Recorded ?Confirmed insulin glargine 100 unit/mL 65 unit subcut BEDTIME 07/22/20 08/02/24 subcutaneous solution (Lantus U-100 Insulin) atorvastatin 80 mg tablet 80 mg PO BEDTIME 04/07/21 08/02/24 dapagliflozin propanediol 10 mg 10 mg PO DAILY 10/25/23 08/02/24 tablet (Farxiga) levothyroxine 50 mcg tablet 50 mcg PO DAILY@0600 11/18/23 08/02/24 duloxetine 20 mg capsule,delayed 20 mg PO DAILY 03/18/24 08/02/24 release omeprazole 40 mg capsule,delayed 40 mg PO DAILY@0630 03/18/24 08/02/24 release triamcinolone acetonide 0.1 % 1 appl topical BID PRN leg pain or 03/18/24 08/02/24 topical cream swelling insulin syringe-needle U-100 1 mL #10 ea 03/29/24 31 gauge x 5/16 trazodone 150 mg tablet 150 mg PO BEDTIME 04/06/24 08/02/24 acetaminophen 500 mg tablet 1,000 mg PO TID PRN Pain 04/19/24 08/02/24 amiodarone 200 mg tablet 200 mg PO DAILY 04/19/24 08/02/24 melatonin 5 mg tablet 5 mg PO BEDTIME PRN sleep 04/19/24 08/02/24 aspirin 81 mg tablet,delayed 81 mg PO BEDTIME 06/11/24 08/02/24 release calcium carbonate 500 mg PO BID 06/11/24 08/02/24 clotrimazole 1 % topical cream 1 appl topical BID 06/11/24 08/02/24 gabapentin 100 mg capsule 100 mg PO TID 06/11/24 08/02/24 oxycodone-acetaminophen 5 mg-325 1 tab PO Q6H PRN pain 06/11/24 08/02/24 mg tablet paroxetine HCl 40 mg tablet 40 mg PO DAILY 06/11/24 08/02/24 hydroxyzine HCl 25 mg tablet 25 mg PO Q8H PRN Anxiety 06/22/24 08/02/24 Previous Rx's ?Medication ?Instructions ?Recorded apixaban 5 mg tablet (Eliquis) 5 mg PO BID #60 tabs 11/03/23 metoprolol succinate 50 mg 50 mg PO DAILY #90 tabs 05/23/24 tablet,extended release 24 hr amlodipine 5 mg tablet 5 mg PO DAILY #30 tabs 06/20/24 nystatin 100,000 unit/gram topical 1 appl topical BID #30 grams 06/20/24 powder torsemide 20 mg tablet 20 mg PO DAILY #30 tabs 06/20/24 cefuroxime axetil 250 mg tablet 250 mg PO BID 7 days #14 tabs 08/07/24 fluconazole 100 mg tablet 100 mg PO DAILY #6 tabs 08/07/24 polyethylene glycol 3350 17 17 g PO DAILY #510 grams 09/05/24 gram/dose oral powder (Miralax) Allergies Allergy/AdvReac Type Severity Reaction Status Date / Time codeine [CODEINE] Allergy Intermediate HALLUCINATI Verified 09/05/24 16:40 ONS Review of Systems Review of Systems: Yes all other systems are reviewed and are negative PMFSH Past Medical History Medical History CKD (chronic kidney disease) CKD stage 3 due to type 2 diabetes mellitus Leg abrasion Abuse of non-prescription analgesics Type 2 diabetes mellitus with unspecified complications Other and unspecified hyperlipidemia Essential hypertension Atherosclerotic cardiovascular disease Urgency incontinence Osteoporosis Arthritis Asthma Hypertension Fibromyalgia Diabetes mellitus Surgical History History of hernia repair Social History Social History Household Members: None Household Members Other:: friend Housing: Apartment Do you presently have visiting nurse or other home services: Yes Unable to assess alcohol history related to: Refusing to respond Alcohol intake: never 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3 F 97.2 F 97.2 F Pulse Rate 60 55 55 Respiratory Rate 20 19 16 Blood Pressure 126/56 L 127/63 127/63 Pulse Oximetry 94 100 100 Oxygen Delivery Method Room Air Nasal Cannula Nasal Cannula Oxygen Flow Rate 2 2 BMI result Body Mass Index 41.0 Appearance: Alert. Oriented X3. No acute distress. Obese Eyes: PERRLA, No Nystagmus ENT: Pharynx normal. Oral Mucosa moist Neck: Normal inspection. Neck supple. CVS: Normal heart rate and rhythm. Pulses normal. Respiratory: No respiratory distress. Equal air entry bilateral, no wheezing/rales/rhonchi Abdomen: Soft and nontender. Bowel sounds are present, no mass palpable, no CVA tenderness Skin: Skin warm and dry. Normal skin color. Normal skin turgor. Extremities: No lower extremity edema. No calf tenderness superficial abrasion of the left lower leg no signs of infection Neuro: Oriented X 3. No motor deficit. No sensory deficit.No cerebellar signs , cranial nerves II-XII intact Medications Administered Discontinued Medications Generic Name Dose Route Start Last Admin Trade Name Freq PRN Reason Stop Dose Admin Insulin Human Lispro 8 unit 09/05/24 19:20 09/05/24 19:48 Insulin Lispro 100 Unit/Ml 3 Ml Vial SUBCUT 09/05/24 19:21 8 unit ONCE ONE Administration Medical Decision Making Medical Decision Making MDM Narrative: Patient has hyperglycemia from non compliant to the diet and decrease amount of insulin which will increase to 60 units along with continue Trulicity also patient is taking lactulose maybe causing the increased blood sugar advised to stopped left closed and start on MiraLax for constipation Differential Diagnosis Differential Diagnoses: The differential diagnosis associated with the presentation includes Admission/Observation Consideration of admission/observation: Escalation of care including admission/observation considered Lab Data [facility] Lab Attestation statement: I reviewed the patient's lab results. 09/05/24 19:21 09/05/24 19:21 Labs: Lab Results 09/05/24 09/05/24 Range/Units 18:46 19:21 WBC 5.7 (4.8-10.8) X10*3/uL RBC 3.93 L (4.20-5.50) X10*6/uL Hgb 8.9 L (12.0-16.0) g/dl Hct 30.1 L (37.0-47.0) % MCV 76.6 L (80.0-98.0) fL MCH 22.6 L (27.0-33.0) pg MCHC 29.6 L (31.0-35.0) g/dl RDW 18.1 H (11.0-16.0) % Plt Count 249 D (160-400) X10*3/uL MPV 9.6 (9.4-12.3) fL Immature Gran % (Auto) 0.3 (0.0-0.4) % Neut % (Auto) 62.8 (45-73) % Lymph % (Auto) 24.4 (20-40) % [place] % (Auto) 7.8 (2-11) % Eos % (Auto) 3.8 (0-4) % Baso % (Auto) 0.9 (0-2) % Lymph # (Auto) 1.4 (1.2-4.9) X10*3/uL [place] # (Auto) 0.5 (0.1-1.2) X10*3/uL Eos # (Auto) 0.2 (0.0-0.4) X10*3/uL Baso # (Auto) 0.1 (0.0-0.2) X10*3/uL Abs Immat Gran (auto) 0.02 (0.00-0.03) X10*3/uL Absolute Neuts (auto) 3.6 (2.0-8.3) x10*3/uL Absolute Nucleated RBC 0.000 (0.0-0.012) X10*3/uL Nucleated RBC % (auto) 0.0 (0.0-0.2) /100WBC Sodium 139 (135-145) mmol/L Potassium 4.4 (3.3-5.1) mmol/L Chloride 97 (96-108) mmol/L Carbon Dioxide 35 H (22-29) mmol/L Anion Gap 11 L (12-20) BUN 24 H (9-16) mg/dL Creatinine 1.37 (0.5-1.4) mg/dL Estim Creat Clear Calc 42.7 Estimated GFR 38 POC Glucose 305 H (60-115) mg/dL Random Glucose 293 H (60-115) mg/dL Calcium 9.0 (8.4-10.2) mg/dL Magnesium 1.7 (1.6-2.6) mg/dL Total Bilirubin 0.3 (0.0-1.0) mg/dL Direct Bilirubin 0.1 (0.0-0.5) mg/dL AST 20 (5-31) U/L ALT 6 (0-31) U/L Alkaline Phosphatase 60 (39-117) U/L Troponin I High Sens 12.4 D (<3.5-17.0) ng/L Total Protein 6.3 L (6.5-8.0) g/dL Albumin 2.8 L (3.5-5.0) g/dL Independent Interpretation I performed an independent interpretation of an: EKG Interpretation: Sinus bradycardia with heart rate 59 beats per minute left axis deviation no acute ST-T changes no acute ischemia Discharge Plan Discharge Clinical Impression: Hyperglycemia due to type 2 diabetes mellitus Patient Disposition: Home, Self-Care Instructions: Diabetic Hyperglycemia (ED) Additional Instructions: Stop lactulose, instead start taking MiraLax for constipation Diet restrictions as advised Increase the dose of Lantus to 60 units daily Continue Trulicity Follow with your PCP Prescriptions: New polyethylene glycol 3350 [Miralax] 17 gram/dose powder 17 g PO DAILY Qty: 510 0RF No Action metoprolol succinate 50 mg tablet extended release 24 hr 50 mg PO DAILY Qty: 90 5RF insulin glargine [Lantus U-100 Insulin] 100 unit/mL solution 65 unit subcut BEDTIME atorvastatin 80 mg tablet 80 mg PO BEDTIME dapagliflozin propanediol [Farxiga] 10 mg tablet 10 mg PO DAILY Eliquis 5 mg Tablet 5 mg PO BID Qty: 60 0RF omeprazole 40 mg capsule,delayed release(DR/EC) 40 mg PO DAILY@0630 triamcinolone acetonide 0.1 % cream 1 appl topical BID PRN (Reason: leg pain or swelling) duloxetine 20 mg capsule,delayed release(DR/EC) 20 mg PO DAILY trazodone 150 mg tablet 150 mg PO BEDTIME acetaminophen 500 mg Tablet 1,000 mg PO TID PRN (Reason: Pain) amiodarone 200 mg tablet 200 mg PO DAILY melatonin 5 mg tablet 5 mg PO BEDTIME PRN (Reason: sleep) fluconazole 100 mg Tablet 100 mg PO DAILY Qty: 6 0RF cefuroxime axetil 250 mg tablet 250 mg PO BID 7 Days Qty: 14 0RF aspirin 81 mg tablet,delayed release (DR/EC) 81 mg PO BEDTIME oxycodone-acetaminophen 5-325 mg tablet 1 tab PO Q6H PRN (Reason: pain) calcium carbonate 500 mg calcium (1,250 mg) tablet 500 mg PO BID gabapentin 100 mg capsule 100 mg PO TID clotrimazole 1 % cream 1 appl topical BID paroxetine HCl 40 mg tablet 40 mg PO DAILY nystatin 100,000 unit/gram Powder 1 appl topical BID Qty: 30 0RF Protocol: Apply to: Apply to: perenieum torsemide 20 mg tablet 20 mg PO DAILY Qty: 30 0RF amlodipine 5 mg Tablet 5 mg PO DAILY Qty: 30 0RF Protocol: Hold for SBP< HOLD for SBP < : 90 hydroxyzine HCl 25 mg tablet 25 mg PO Q8H PRN (Reason: Anxiety) levothyroxine 50 mcg tablet 50 mcg PO DAILY@0600 (DME) insulin syringe-needle U-100 1 mL 31 gauge x 5/16 syringe See Rx Instructions .ROUTE .MEDSUPPLY Qty: 10 Rx Instructions: As directed Interventions: ED Discharge Assessment Last Done: 09/06/24 00:02 Discharge Date/Time: 09/06/24 00:10 Print Language: Portuguese
[2024-09-05 18:51] LABS: Glucose, Whole Blood 305 mg/dL (60-115)
[2024-09-05 19:13] VITALS: BP 127/43; PULSE 60; RESP 20; TEMP 36.7; O2SAT 100
[2024-09-05 19:25] LABS: MANUAL DIFF FLAG NO
[2024-09-05 19:26] LABS: Basophils Absolute Auto 0.1 X10*3/uL (0.0-0.2); Basophils Percent Auto 0.9 % (0-2); Eosinophils Absolute Auto 0.2 X10*3/uL (0.0-0.4); Eosinophils Percent Auto 3.8 % (0-4); Hematocrit 30.1 % (37.0-47.0); Hemoglobin 8.9 g/dl (12.0-16.0); Imm Gran Abs Auto 0.02 X10*3/uL (0.00-0.03); Imm Gran Pct Auto 0.3 % (0.0-0.4); Lymphocytes Absolute Auto 1.4 X10*3/uL (1.2-4.9); Lymphocytes Percent Auto 24.4 % (20-40); Mean Corpuscular HGB Conc 29.6 g/dl (31.0-35.0); Mean Corpuscular Hemoglobin 22.6 pg (27.0-33.0); Mean Corpuscular Volume 76.6 fL (80.0-98.0); Mean Platelet Volume 9.6 fL (9.4-12.3); Monocytes Absolute Auto 0.5 X10*3/uL (0.1-1.2); Monocytes Percent Auto 7.8 % (2-11); Neutrophils Absolute Auto 3.6 x10*3/uL (2.0-8.3); Neutrophils Percent Auto 62.8 % (45-73); Platelet Count 249 X10*3/uL (160-400); Red Blood Count 3.93 X10*6/uL (4.20-5.50); Red Cell Distribution Width 18.1 % (11.0-16.0); White Blood Count 5.7 X10*3/uL (4.8-10.8)
[2024-09-05 19:41] LABS: Alanine Aminotransferase 6 U/L (0-31); Albumin Level 2.8 g/dL (3.5-5.0); Alkaline Phosphatase 60 U/L (39-117); Anion Gap 11 (12-20); Aspartate Amino Transferase 20 U/L (5-31); Bilirubin Direct 0.1 mg/dL (0.0-0.5); Bilirubin Total 0.3 mg/dL (0.0-1.0); Blood Urea Nitrogen 24 mg/dL (9-16); Carbon Dioxide 35 mmol/L (22-29); Chloride 97 mmol/L (96-108); Creatinine Clr Calc Pharmacy 42.7; Estimated Glomerular Filt Rate 38; Glucose Random 293 mg/dL (60-115); Magnesium 1.7 mg/dL (1.6-2.6); Potassium 4.4 mmol/L (3.3-5.1); Sodium 139 mmol/L (135-145); Total Protein 6.3 g/dL (6.5-8.0)
[2024-09-05 19:48] LABS: Troponin-I High Sensitivity 12.4 ng/L (<3.5-17.0)
[2024-09-05] MEDS: Insulin Lispro 100 UNIT/ML 3 ML VIAL 8 UNIT SUBCUT (19:48)
--- NOTE | 2024-09-05 20:56 | PC.NURSE ---
called pt dtr jose moise-- per MD pt will be discharged- pt does not wish to go to [facility] at this time. left message for dtr to call dept
--- NOTE | 2024-09-05 21:07 | PC.NURSE ---
spoke with pt granddtr : [phone] will report to dept to [employer] picking supervisor pt
--- NOTE | 2024-09-05 21:19 | PC.NURSE ---
rec phone call from pt granddtr-- sts she is trying to find pt a ride home, sts that her uncle has the vehicle that pt can easily get into. sts she will continue to try to get in contact with him.
[2024-09-05 22:12] VITALS: BP 126/56; PULSE 60; RESP 20; TEMP 36.3; O2SAT 94
[2024-09-05 23:58] VITALS: BP 127/63; PULSE 55; RESP 19; TEMP 36.2; O2SAT 100
[2024-09-06 00:02] VITALS: BP 127/63; PULSE 55; RESP 16; TEMP 36.2; O2SAT 100
== END 2024-09-06 00:10 | disposition home or self-care (01) ==
PROVIDERS: Physician Assistant Medical; Emergency Provider Internal Medicine; PCP Internal Medicine Infectious Disease
DX: E11.65 Type 2 diabetes mellitus with hyperglycemia (principal); E11.22 Type 2 diabetes mellitus with diabetic chronic kidney disease; I12.9 Hypertensive chronic kidney disease with stage 1 through stage 4 chronic kidney disease, or unspecified chronic kidney disease; N18.30 Chronic kidney disease, stage 3 unspecified; J45.909 Unspecified asthma, uncomplicated; E78.5 Hyperlipidemia, unspecified; Z91.148 Patient's other noncompliance with medication regimen for other reason
CPT/HCPCS: 36415; 80048; 80076; 82947; 83735; 84484; 85025; 93005; 99283; 99284

== ENCOUNTER → 2024-09-05 18:28 | Outpatient (BNV) | payer OTHER, SELFPAY | PROVIDERS: Emergency Provider Internal Medicine; PCP Internal Medicine Infectious Disease; Visit Provider Internal Medicine | DX: R00.1 Bradycardia, unspecified (principal) | CPT/HCPCS: 93010 ==

== ENCOUNTER 2024-10-06 10:38 | Emergency (ER) | payer OTHER, SELFPAY ==
[2024-10-06 10:46] VITALS: BP 130/58; BP 130/69; PULSE 59; PULSE 63; RESP 18; TEMP 36.8; O2SAT 97; BMI 44.9
--- NOTE | 2024-10-06 10:49 | ED_ITS ---
HPI - Psych General Chief Complaint: Anxiety Stated Complaint: ANXIETY,DEPRESSION PER EMS Time Seen by Provider: 10/06/24 10:48 Source: patient, family (Daughter ), EMS, RN notes reviewed, old records reviewed and motor vehicle parts interpreter Mode of arrival: EMS Limitations: language barrier History of Present Illness ED Provider: Jacob HPI Narrative: Patient is a 74-year-old female with history of coronary artery disease, T2 DM, HTN, opioid dependence on oxycodone for chronic pain, agoraphobia, depression with anxiety, CHF, asthma presenting to the emergency department after episode of anxiety and agitation this morning. Patient and daughter state that the patient sometimes lives with the daughter, sometimes lives with the son, and at times stays with her boyfriend. Prior to arrival, patient became upset with her son stating that he was with holding her prescribed oxycodone and she needed it for her chronic fibromyalgia pain. Patient became so upset she was pulling her own hair and scratching at her face. She denies any suicidal or homicidal ideation, auditory or visual hallucinations. MD complaint: anxiety Onset (ago): hour(s) Duration: resolved prior to arrival History of same: Yes Related Data Home Medications ?Medication ?Instructions ?Recorded ?Confirmed insulin glargine 100 unit/mL 60 unit subcut DAILY 07/22/20 10/06/24 subcutaneous solution (Lantus U-100 Insulin) atorvastatin 80 mg tablet 80 mg PO BEDTIME 04/07/21 10/06/24 dapagliflozin propanediol 10 mg 10 mg PO DAILY 10/25/23 08/02/24 tablet (Farxiga) duloxetine 20 mg capsule,delayed 20 mg PO DAILY 03/18/24 08/02/24 release omeprazole 40 mg capsule,delayed 40 mg PO DAILY@0630 03/18/24 10/06/24 release aspirin 81 mg tablet,delayed 81 mg PO BEDTIME 06/11/24 10/06/24 release gabapentin 100 mg capsule 100 mg PO TID 06/11/24 10/06/24 oxycodone-acetaminophen 5 mg-325 1 tab PO Q6H PRN pain 06/11/24 10/06/24 mg tablet dulaglutide 0.75 mg/0.5 mL 0.75 mg subcut QWEEK 10/06/24 10/06/24 subcutaneous pen injector (Trulicity) ketotifen fumarate 0.025 % (0.035 1 drp ophthalmic (eye) Q12H PRN 10/06/24 10/06/24 %) eye drops (Eye Itch Relief) Eye Irritation levothyroxine 75 mcg tablet 75 mcg PO QAM 10/06/24 10/06/24 trazodone 150 mg tablet 150 mg PO BEDTIME 10/06/24 10/06/24 Previous Rx's ?Medication ?Instructions ?Recorded apixaban 5 mg tablet (Eliquis) 5 mg PO BID #60 tabs 11/03/23 amlodipine 5 mg tablet 5 mg PO DAILY #30 tabs 06/20/24 torsemide 20 mg tablet 20 mg PO DAILY #30 tabs 06/20/24 Allergies Allergy/AdvReac Type Severity Reaction Status Date / Time codeine [CODEINE] Allergy Intermediate HALLUCINATI Verified 10/06/24 10:49 ONS Review of Systems 2 Review of Systems: As per HPI Yes all other systems are reviewed and are negative Constitutional: Constitutional: Reports as per HPI PMFSH Past Medical History Medical History CKD (chronic kidney disease) CKD stage 3 due to type 2 diabetes mellitus Leg abrasion Abuse of non-prescription analgesics Type 2 diabetes mellitus with unspecified complications Other and unspecified hyperlipidemia Essential hypertension Atherosclerotic cardiovascular disease Urgency incontinence Osteoporosis Arthritis Asthma Hypertension Fibromyalgia Diabetes mellitus Surgical History History of hernia repair Social History Social History Household Members: None Household Members Other:: friend Housing: Apartment Do you presently have visiting nurse or other home services: Yes Unable to assess alcohol history related to: Refusing to respond Alcohol intake: never 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 Patient Tobacco Use Status: Never used Tobacco Smoked in Last 30 Days: No Use of substances other than those prescribed or required for medical reasons: No Advance Directives: Yes Advance Directives on File: Yes Advance Directives Date on File: 04/07/24 service: No Sexual orientation: Straight/Heterosexual Physical Exam 2 Vital Signs: Vital Signs: Last Vital Signs Temp 98.3 F 10/06/24 10:46 Pulse 59 10/06/24 10:46 Resp 16 10/06/24 10:50 BP 130/58 L 10/06/24 10:46 Pulse Ox 97 10/06/24 10:46 O2 Del Method Room Air 10/06/24 10:46 BMI result Body Mass Index 44.9 Vital signs have been reviewed and appear to be correct. Blood pressure normal. Heart rate normal. Respiratory rate normal. Temperature normal. Oxygen saturation normal. Const: General: cooperative, healthy appearing and no acute distress O rientation/consciousness: oriented to person, oriented to place, oriented to time and patient oriented x3 Limitations: no limitations HEENT: Head: Yes normocephalic and Yes atraumatic Ears: external ears normal General nose exam: Normal external nose present Face and sinus: Yes face symmetric Mouth: oropharynx normal and moist mucous membranes T hroat: Yes uvula midline Eyes: Pupils: Equal, round and reactive pupils present Neck: Neck: Yes normal visual inspection and Yes supple Resp: Effort & Inspection: normal respiratory effort and able to speak in complete sentences Auscultation: clear to auscultation bilaterally Cardio: Rate: regular rate Rhythm: regular rhythm Heart sounds: S1 normal heart sound present and S2 normal heart sound present GI: Palpation (GI): Soft to palpation and nontender Auscultation: n ormoactive bowel sounds : General: Yes no CVA tenderness Back/Spine/Pelvis: Back: no CVA tenderness Skin: General skin exam: elasticity normal and turgor normal Neuro: General: oriented to person, oriented to place, oriented to time, patient oriented x3, moves all extremities, no focal motor deficits and CN's II- XI intact bilaterally Cranial nerves: Yes Equal, round and reactive pupils present Cognition (Neuro): normal cognition Extrem: General: Yes full ROM, Yes no pedal edema and Yes no calf tenderness Psych: Appearance: grossly normal Mental Status: mental status grossly normal Speech and movement: Normal speech and movement present Affect: n ormal affect Attitude: cooperative Thought process: Normal thought process present Thought content: suicidality, no homicidality, no hallucinations and Depressive thoughts present Insight: Fair insight present (Psych) J udgement: Fair judgement present (Psych) Medical Decision Making Medical Decision Making MDM Narrative: Patient is a 74-year-old female with history of coronary artery disease, T2 DM, HTN, opioid dependence on oxycodone for chronic pain, agoraphobia, depression with anxiety, CHF, asthma presenting to the emergency department after episode of anxiety and agitation this morning. On exam patient is awake, A+Ox3, VS WNL, afebrile, normal neurological exam without focal deficits, physical exam findings as above. Given reported symptoms and physical exam findings, initial differential includes but is not limited to anxiety, agitation. Labs unremarkable. Patient seen by CARE team and cleared for discharge, provided with resources for finding a psychiatrist. Return precautions discussed. Patient and family verbalized understanding of and agreement with plan. In- person translator and interpreter was utilized for all interactions, assessments, and discussions. Differential Diagnosis Differential Diagnoses: The differential diagnosis associated with the presentation includes as per [facility] Admission/Observation Consideration of admission/observation: Escalation of care including admission/observation considered Consult Healthcare Provider Management of the patient was discussed with: Behavioral Health Provider Lab Data [facility] Lab Attestation statement: I reviewed the patient's lab results. as per [facility] 10/06/24 11:47 10/06/24 11:47 Labs: Lab Results 10/06/24 Range/Units 11:47 WBC 4.4 L (4.8-10.8) X10*3/uL RBC 4.18 L (4.20-5.50) X10*6/uL Hgb 9.5 L (12.0-16.0) g/dl Hct 32.0 L (37.0-47.0) % MCV 76.6 L (80.0-98.0) fL MCH 22.7 L (27.0-33.0) pg MCHC 29.7 L (31.0-35.0) g/dl RDW 16.8 H (11.0-16.0) % Plt Count 282 (160-400) X10*3/uL MPV 10.8 (9.4-12.3) fL Immature Gran % (Auto) 0.5 H (0.0-0.4) % Neut % (Auto) 60.1 (45-73) % Lymph % (Auto) 26.8 (20-40) % [place] % (Auto) 6.4 (2-11) % Eos % (Auto) 4.8 H (0-4) % Baso % (Auto) 1.4 (0-2) % Lymph # (Auto) 1.2 (1.2-4.9) X10*3/uL [place] # (Auto) 0.3 (0.1-1.2) X10*3/uL Eos # (Auto) 0.2 (0.0-0.4) X10*3/uL Baso # (Auto) 0.1 (0.0-0.2) X10*3/uL Abs Immat Gran (auto) 0.02 (0.00-0.03) X10*3/uL Absolute Neuts (auto) 2.6 (2.0-8.3) x10*3/uL Absolute Nucleated RBC 0.000 (0.0-0.012) X10*3/uL Nucleated RBC % (auto) 0.0 (0.0-0.2) /100WBC Sodium 139 (135-145) mmol/L Potassium 4.8 (3.3-5.1) mmol/L Chloride 102 (96-108) mmol/L Carbon Dioxide 29 (22-29) mmol/L Anion Gap 13 (12-20) BUN 21 H (9-16) mg/dL Creatinine 1.35 (0.5-1.4) mg/dL Estim Creat Clear Calc 39.2 Estimated GFR 38 Random Glucose 318 H (60-115) mg/dL Calcium 8.5 (8.4-10.2) mg/dL Total Bilirubin 0.3 (0.0-1.0) mg/dL AST 31 (5-31) U/L ALT 10 (0-31) U/L Alkaline Phosphatase 67 (39-117) U/L Total Protein 7.5 (6.5-8.0) g/dL Albumin 3.3 L (3.5-5.0) g/dL Ethyl Alcohol < 10 mg/dL Independent Historian Clinical information obtained from an independent historian. History obtained from or confirmed by: Other (daughter) External Record Review External record reviewed: Inpatient record, Office record and Outpatient record Discharge Plan Discharge Clinical Impression: Anxiety Patient Disposition: Home, Self-Care Instructions: Anxiety (ED) Additional Instructions: You were evaluated in the emergency department today for agitation and anxiety. You were seen by the care team and provided with resources for finding a psychiatrist. Follow-up with your primary care provider as well. Return to the emergency department with new or concerning symptoms, thoughts of hurting yourself or anyone else. Prescriptions: No Action insulin glargine [Lantus U-100 Insulin] 100 unit/mL solution 60 unit subcut DAILY atorvastatin 80 mg tablet 80 mg PO BEDTIME dapagliflozin propanediol [Farxiga] 10 mg tablet 10 mg PO DAILY Eliquis 5 mg Tablet 5 mg PO BID Qty: 60 0RF omeprazole 40 mg capsule,delayed release(DR/EC) 40 mg PO DAILY@0630 duloxetine 20 mg capsule,delayed release(DR/EC) 20 mg PO DAILY aspirin 81 mg tablet,delayed release (DR/EC) 81 mg PO BEDTIME oxycodone-acetaminophen 5-325 mg tablet 1 tab PO Q6H PRN (Reason: pain) gabapentin 100 mg capsule 100 mg PO TID torsemide 20 mg tablet 20 mg PO DAILY Qty: 30 0RF amlodipine 5 mg Tablet 5 mg PO DAILY Qty: 30 0RF Protocol: Hold for SBP< HOLD for SBP < : 90 ketotifen fumarate [Eye Itch Relief] 0.025 % (0.035 %) drops 1 drp ophthalmic (eye) Q12H PRN (Reason: Eye Irritation) levothyroxine 75 mcg tablet 75 mcg PO QAM trazodone 150 mg tablet 150 mg PO BEDTIME Trulicity 0.75 mg/0.5 mL pen injector 0.75 mg subcut QWEEK Interventions: Tracy-Suicide Risk Severity Scale Last Done: 10/06/24 10:52 Print Language: Yakut
[2024-10-06 10:50] VITALS: RESP 16
--- NOTE | 2024-10-06 11:41 | PC.NURSE ---
Mary Lou comes in today from home reporting 10/10 anxiety and distress because she is frustrated with her son and family that manage her medications at home. She reports that her son is withholding her percocet and not giving it to her when she needs and feels she is in pain. She is very distressed because of this due to chronic fibromyalgia. This RN spoke with pts trevin and she reports that Mary Lou has been becoming addicted to the medication and asking for it way before it can be given again . She also reports that when Mary Lou is not given the medication she begins pulling her hair out and hysterically crying. The niece reports that they are worried she is too addicted and dependent on the medication . She also reports that this is not her first visit for this type of incident
[2024-10-06 11:50] LABS: MANUAL DIFF FLAG NO
[2024-10-06 11:53] LABS: Basophils Absolute Auto 0.1 X10*3/uL (0.0-0.2); Basophils Percent Auto 1.4 % (0-2); Eosinophils Absolute Auto 0.2 X10*3/uL (0.0-0.4); Eosinophils Percent Auto 4.8 % (0-4); Hemoglobin 9.5 g/dl (12.0-16.0); Imm Gran Abs Auto 0.02 X10*3/uL (0.00-0.03); Imm Gran Pct Auto 0.5 % (0.0-0.4); Lymphocytes Absolute Auto 1.2 X10*3/uL (1.2-4.9); Lymphocytes Percent Auto 26.8 % (20-40); Mean Corpuscular HGB Conc 29.7 g/dl (31.0-35.0); Mean Corpuscular Hemoglobin 22.7 pg (27.0-33.0); Mean Corpuscular Volume 76.6 fL (80.0-98.0); Mean Platelet Volume 10.8 fL (9.4-12.3); Monocytes Absolute Auto 0.3 X10*3/uL (0.1-1.2); Monocytes Percent Auto 6.4 % (2-11); Neutrophils Absolute Auto 2.6 x10*3/uL (2.0-8.3); Neutrophils Percent Auto 60.1 % (45-73); Platelet Count 282 X10*3/uL (160-400); Red Blood Count 4.18 X10*6/uL (4.20-5.50); Red Cell Distribution Width 16.8 % (11.0-16.0); White Blood Count 4.4 X10*3/uL (4.8-10.8)
[2024-10-06 12:14] LABS: Alanine Aminotransferase 10 U/L (0-31); Albumin Level 3.3 g/dL (3.5-5.0); Alkaline Phosphatase 67 U/L (39-117); Anion Gap 13 (12-20); Aspartate Amino Transferase 31 U/L (5-31); Bilirubin Total 0.3 mg/dL (0.0-1.0); Blood Urea Nitrogen 21 mg/dL (9-16); Calcium 8.5 mg/dL (8.4-10.2); Carbon Dioxide 29 mmol/L (22-29); Chloride 102 mmol/L (96-108); Creatinine Clr Calc Pharmacy 39.2; Estimated Glomerular Filt Rate 38; Ethanol < 10 mg/dL; Glucose Random 318 mg/dL (60-115); Potassium 4.8 mmol/L (3.3-5.1); Sodium 139 mmol/L (135-145); Total Protein 7.5 g/dL (6.5-8.0)
--- OUTSIDE RECORDS SUMMARY | 2024-10-06 12:52 | XMS_ITS | Encounter Summary ---
Author Organization [employer] Address [address] [place] [address] Care Team Providers Care Cemetery Warden Name Role Phone Amanda Watkins MD Primary Care Provide r Hiro Ram Unavailable Unavailable Encounter Details Date Type Department Care Team ([facility] st Contact Info) Description 09/06/2024 Orders Only [facility] MED & PEDS [address] [place], [place] [id number] Waldemar Vaughn MD [address] [place] [address] Social History Tobacco Use Types Packs/Day Years [...] Care Team (Late st Contact Info) Description 10/24/2024 2:00 PM EDT Office Visit [facility] OPTOMETRY [address] [place] [address] Elisa Cummings, OD [address] [place] [address] 11/28/2024 1:45 PM EDT Office Visit [facility] MEDICINE [address] [place] [address] Amanda Watkins MD [address] [place] [address] documented as of this encounter Visit Diagnoses Not on filedocumented in this encounter Additional Health Concerns Assessment Noted Time PHQ-9 Depression Total Score: 0 09/01/19 25 1:18 PM EST documented as of this encounter Care Teams Cemetery Warden Relationship Specialty Start Date End Date Amanda Watkins MD [address] [place] [id number] PCP - General Family Medicine 04/07/19 Hiro Ram FNP [address] [place] [id number] Nurse Practitioner Family Medicine 07/06/23 Ja ARCE 08/10/24 documented as of this encounter
--- OUTSIDE RECORDS SUMMARY | 2024-10-06 12:52 | XMS_ITS | Encounter Summary ---
Author Organization [employer] Address 75 [facility] 7t [place] [address] Care Team Providers Care Hydrometeorologist Name Role Phone Amanda Watkins MD Primary Care Provide r Hiro Ram Unavailable Unavailable Reason for Visit * Reason Comments Med Refill Encounter Details Date Type Department Care Team (Late st Contact Info) Description 09/24/2024 Refill [facility] MEDICINE [address] [place] [address] Amanda Watkins MD [address] [place], [place] [phone] Type 2 diabetes mellitus with other specified complication (CMS/HCC) Social History Tobacco Use Types Packs/Day [...] Description 10/24/2024 2:00 PM EDT Office Visit [facility] OPTOMETRY [address] [place] [address] Emiliano, Elisa, OD [address] [place] [address] 11/28/2024 1:45 PM EDT Office Visit [facility] MEDICINE [address] [place] [address] Amanda Watkins MD [address] [place] [address] documented as of this encounter Visit Diagnoses Diagnosis Type 2 diabetes mellitus with other specified complication (CMS/HCC) documented in this encounter Additional Health Concerns Assessment Noted Time PHQ-9 Depression Total Score: 0 09/01/19 25 1:18 PM EST documented as of this encounter Care Teams Hydrometeorologist Relationship Specialty Start Date End Date Amanda Watkins MD [address] [place] [address] PCP - General Family Medicine 04/07/19 Hiro Ram FNP [address] [place] [address] Nurse Practitioner Family Medicine 07/06/23 [facility] 08/10/24 documented as of this encounter
--- OUTSIDE RECORDS SUMMARY | 2024-10-06 12:52 | XMS_ITS | Encounter Summary ---
Author Organization [employer] Address 75 [facility] 7t [place] [address] Care Team Providers Care Binding Folder Machine Name Role Phone Amanda Watkins MD Primary Care Provide r Hiro Ram Unavailable Unavailable Reason for Visit * Reason Onset Date Comments Medication Question 09/22/2024 Encounter Details Date Type Department Care Team ([facility] st Contact Info) Description 09/22/2024 Telephone [facility] MEDICINE [address] [place] [address] Amanda Watkins MD [address] [place] [address] Medication Question Social History Tobacco Use Types Packs/Day Years [...] Telephone Encounter - Temitope Natarajan RN - 09/22/2024 3:59 PM EST TC returned to [facility] [phone] in regards to below message. A is inquiring if patient should be on farxiga (per med review, it is not Rx'd by PCP office) and also if patient should be on duloxetine (per med review, it is not Rx'd by PCP office). A also reports the patient does not have levothyroxine 75mcg in the home only the 50mcg. VNA reports she called the pharmacy and was informed the patient p/u the levothyroxine 14 days ago of the 75mcg. VNA reports the daughter is adamant that she did not p/u the medication. RN advised CLAUDE, RN would call pharmacy and f/u with daughter. TC placed to [facility] pharmacy who confirms patient did p/u medication of 75mcg 14 days ago however theycan provide the patient with a weeks supply until insurance covers a refill. RN was informed it will be ready for p/u today. TC placed to patient [phone] to inform of above message however no answer. RN LVM requesting CB to red team nurses. TC placed to [phone], spoke to daughter Alie (on HIPAA) in regards to above information. Daughter verbalized understanding. Daughter to f/u PRN. * Telephone Encounter - Nataliia Beckwithtrang Marquez - 09/22/2024 3:45 PM EST Tc from [facility] requesting a call back regarding levothyroxine (Synthroid, Levoxyl) 75 MCG tablet. [phone] documented in this encounter Plan of Treatment Upcoming Encounters Date Type Department Care Team (Late st Contact Info) Description 10/24/2024 2:00 PM EDT Office Visit [facility] OPTOMETRY [address] [place] [address] Emiliano, Elisa, OD [address] [place] [address] 11/28/2024 1:45 PM EDT Office Visit [facility] MEDICINE [address] [place] [address] Amanda Watkins MD [address] [place] [address] documented as of this encounter Visit Diagnoses Not on filedocumented in this encounter Additional Health Concerns Assessment Noted Time PHQ-9 Depression Total Score: 0 09/01/19 25 1:18 PM EST documented as of this encounter Care Teams Binding Folder Machine Relationship Specialty Start Date End Date Amanda Watkins MD [address] [place] [address] PCP - General Family Medicine 04/07/19 Hiro Ram FNP [address] [place] [address] Nurse Practitioner Family Medicine 07/06/23 [facility] 08/10/24 documented as of this encounter
--- OUTSIDE RECORDS SUMMARY | 2024-10-06 12:52 | XMS_ITS | Encounter Summary ---
Author Organization [employer] Address 75 [facility] 7t [place] [address] Care Team Providers Care Gyroscopic Engineering Technician Name Role Phone Amanda Watkins MD Primary Care Provide r Hiro Ram Unavailable Unavailable Reason for Visit * Reason Onset Date Comments Results 09/06/2024 Encounter Details Date Type Department Care Team ([facility] Contact Info) Description 09/06/2024 Telephone [facility] MED & PEDS [address] [place], [place] [phone] Waldemar Vaughn MD [address] [place] [address] Results Social History Tobacco Use Types Packs/Day Years [...] Telephone Encounter - Temitope Natarajan RN - 09/06/2024 4:29 PM EST TC placed to patient [phone] in regards to below message however no answer, RN left VM requesting CB to red team nurses. TC placed to [phone], RN spoke to Alie (daughter) in regards to below message. Alie confirms the patient is receiving 50 units of lantus daily and the Trulicity medication on Fridays. Daughter reports the patients BS was elevated on Wednesday (critical call) d/t patient not receiving her lantus on this day as she was with her son who did not have her lantus. Daughterreports BS today was 321 after eating. Daughter is inquiring on patients CGM teaching appointment (was today but patient no showed). Daughter reports the patient was tired d/t ED visit and would liketo r/s. RN notes patient is scheduled to see Raad on 09/15/24 for A&P TECHNICIAN CDTM visit. RN will discuss with Raad to see if patient can receive CGM teaching at appointment with Raad on 09/15/24 (to decrease patients visits to [facility]) and if not RN will return call to schedule another NV. Daughter verbalized understanding. Daughter also informed TSH returned elevated and provider increased patients levothyroxine to 75mg from 50mcg. Daughter verbalized understanding and reports she will bring the patients medboxes to the pharmacy tomorrow to have the levothyroxine changed. Daughter confirms the patientis taking the medication daily. Daughter also aware of the need to repeat TSH in 6- 8 weeks to ensure higher dose is effective. Daughter to f/u PRN. RN called [facility] pharmacy to confirm RX for CGM reader will be ready for p/u on 09/15/23, RN was informed patient has already p/u BOTH the readers and the sensors. Sensors p/u on 08/16 and reader on 09/01. TC returned to daughter [phone] to remind to bring CGM sensor and reader to appointment on 09/15/24 with Raad. Daughter verbalized understanding. Sending to Raad as FYI. * Telephone Encounter - Waldemar Wilburn MD - 09/06/2024 1:26 PM EST Patient found with elevated glucose please verify she is doing lantus 50 units at night and that she is on trulicity 0.75mg, encourage low carb/no sugar diet, if numbers are above 250 please schedulea DM follow up. Also her tsh is elevated please verify she is taking levothyroxine as indicated daily, dose will be increased to 75mcg, repeat tsh lab in 6-8 weeks documented in this encounter Plan of Treatment Upcoming Encounters Date Type Department Care Team (Late st Contact Info) Description 10/24/2024 2:00 PM EDT Office Visit [facility] OPTOMETRY [address] [place], [place] [phone] Elisa Cummings, OD [address] [place] [address] 11/28/2024 1:45 PM EDT Office Visit [facility] MEDICINE [address] [place] [address] Amanda Watkins MD [address] [place] [address] Scheduled Orders Name Type Priority Associated Diagnoses Orde r Schedule TSH W/Reflex to FT4 Lab Routine Acquired hypothyroidism Expected: 09/06/2024 (Approximate), Expires: 09/06/2025 documented as of this encounter Visit Diagnoses Diagnosis Acquired hypothyroidism Unspecified hypothyroidism documented in this encounter Additional Health Concerns Assessment Noted Time PHQ-9 Depression Total Score: 0 09/01/19 25 1:18 PM EST documented as of this encounter Care Teams Gyroscopic Engineering Technician Relationship Specialty Start Date End Date Amanda Watkins MD [address] [place] [address] PCP - General Family Medicine 04/07/19 Hiro Ram FNP [address] [place] [address] Nurse Practitioner Family Medicine 07/06/23 [facility] 08/10/24 documented as of this encounter
--- OUTSIDE RECORDS SUMMARY | 2024-10-06 12:52 | XMS_ITS | Encounter Summary ---
Author Organization [employer] Address 75 [facility] 7t [place] [address] Care Team Providers Care Offensive Coordinator Name Role Phone Amanda Watkins MD Primary Care Provide r Hiro Ram Unavailable Unavailable Reason for Visit * Reason Onset Date Comments Durable Medical Equipment 07/26/2024 Encounter Details Date Type Department Care Team (Late st Contact Info) Description 07/26/2024 Telephone [facility] MEDICINE [address] [place] [address] Amanda Watkins MD [address] [place] [address] Durable Medical Equipment Social History Tobacco Use [...] Miscellaneous Notes * Telephone Encounter - Sky áSnchez - 07/26/2024 12:29 PM EST Tc from Daughter calling in regards to DME stating [facility] [email or web address] stating they do not take pt's insurance and was advised to have equipment send to another supply pharmacy. DME: Wipes Bed Pads Adult Diapers documented in this encounter Plan of Treatment Upcoming Encounters Date Type Department Care Team (Late st Contact Info) Description 10/24/2024 2:00 PM EDT Office Visit [facility] OPTOMETRY [address] [place] [address] Emiliano, Elisa, OD [address] [place] [address] 11/28/2024 1:45 PM EDT Office Visit [facility] MEDICINE [address] [place] [address] Amanda Watkins MD [address] [place] [address] documented as of this encounter Visit Diagnoses Not on filedocumented in this encounter Additional Health Concerns Assessment Noted Time PHQ-9 Depression Total Score: 10 024 3:23 PM EDT documented as of this encounter Care Teams Offensive Coordinator Relationship Specialty Start Date End Date Amanda Watkins MD [address] [place] [address] PCP - General Family Medicine 04/07/19 Hiro Ram FNP [address] [place] [address] Nurse Practitioner Family Medicine 07/06/23 [facility] 07/03/22 08/16/24 Ja [facility] 08/10/24 documented as of this encounter
--- OUTSIDE RECORDS SUMMARY | 2024-10-06 12:52 | XMS_ITS | Encounter Summary ---
Author Organization [employer] Address 75 [facility] 7t [place] [address] Care Team Providers Care Pals Specialist Name Role Phone Amanda Watkins MD Primary Care Provide r Hiro Ram Unavailable Unavailable Reason for Visit * Reason Onset Date Comments Hospital Follow-up 03/23/2024 Encounter Details Date Type Department Care Team (Late st Contact Info) Description 03/23/2024 Telephone [facility] MEDICINE [address] [place] [address] Amanda Watkins MD [address] [place] [address] Hospital Follow-up Social History Tobacco Use Types [...] from pt requesting a HDF appt. Hospital: [facility] Date of admission: 03/18 Discharge date: 03/21 Diagnosed: Cellulitis documented in this encounter Plan of Treatment Upcoming Encounters Date Type Department Care Team (Late st Contact Info) Description 10/24/2024 2:00 PM EDT Office Visit [facility] OPTOMETRY [address] [place] [address] Emiliano, Elisa, OD [address] [place] [address] 11/28/2024 1:45 PM EDT Office Visit [facility] MEDICINE [address] [place] [address] Amanda Watkins MD [address] [place] [address] documented as of this encounter Visit Diagnoses Not on filedocumented in this encounter Additional Health Concerns Assessment Noted Time PHQ-9 Depression Total Score: 10 024 3:23 PM EDT documented as of this encounter Care Teams Pals Specialist Relationship Specialty Start Date End Date Amanda Watkins MD [address] [place] [address] PCP - General Family Medicine 04/07/19 Hiro Ram FNP [address] [place] [address] Nurse Practitioner Family Medicine 07/06/23 [facility] 07/03/22 08/16/24 Ja [facility] 08/10/24 documented as of this encounter
--- OUTSIDE RECORDS SUMMARY | 2024-10-06 12:52 | XMS_ITS | Encounter Summary ---
Author Organization [employer] Address 75 [facility] 7t [place] [address] Care Team Providers Care Silver Steward Name Role Phone Amanda Watkins MD Primary Care Provide r Hiro Ram Unavailable Unavailable Reason for Visit * Reason Comments Med Refill Encounter Details Date Type Department Care Team (Late st Contact Info) Description 09/27/2024 Refill [facility] MEDICINE [address] [place] [address] Ann Kulkarni DO [address] [place] [address] Social History Tobacco Use Types Packs/Day Years [...] Description 10/24/2024 2:00 PM EDT Office Visit [facility] OPTOMETRY [address] [place] [address] Emiliano, Elisa, OD [address] [place] [address] 11/28/2024 1:45 PM EDT Office Visit [facility] MEDICINE [address] [place] [address] Amanda Watkins MD [address] [place] [address] documented as of this encounter Visit Diagnoses Not on filedocumented in this encounter Additional Health Concerns Assessment Noted Time PHQ-9 Depression Total Score: 0 09/01/19 25 1:18 PM EST documented as of this encounter Care Teams Silver Steward Relationship Specialty Start Date End Date Amanda Watkins MD [address] [place] [address] PCP - General Family Medicine 04/07/19 Hiro Ram FNP [address] [place] [address] Nurse Practitioner Family Medicine 07/06/23 [facility] 08/10/24 documented as of this encounter
--- OUTSIDE RECORDS SUMMARY | 2024-10-06 12:52 | XMS_ITS | Encounter Summary ---
Author Organization [employer] Address 75 [facility] 7t [place] [address] Care Team Providers Care Vp Product Marketing Name Role Phone Amanda Watkins MD Primary Care Provide r Hiro Ram Unavailable Unavailable Reason for Visit * Reason Comments Med Refill Encounter Details Date Type Department Care Team (Late st Contact Info) Description 10/04/2024 Refill [facility] MEDICINE [address] [place] [address] Ann Kulkarni DO [address] [place] [address] Social History Tobacco Use Types Packs/Day Years [...] Description 10/24/2024 2:00 PM EDT Office Visit [facility] OPTOMETRY [address] [place] [address] Emiliano, Elisa, OD [address] [place] [address] 11/28/2024 1:45 PM EDT Office Visit [facility] MEDICINE [address] [place] [address] Amanda Watkins MD [address] [place] [address] documented as of this encounter Visit Diagnoses Not on filedocumented in this encounter Additional Health Concerns Assessment Noted Time PHQ-9 Depression Total Score: 0 09/01/19 25 1:18 PM EST documented as of this encounter Care Teams Vp Product Marketing Relationship Specialty Start Date End Date Amanda Watkins MD [address] [place] [address] PCP - General Family Medicine 04/07/19 Hiro Ram FNP [address] [place] [address] Nurse Practitioner Family Medicine 07/06/23 [facility] 08/10/24 documented as of this encounter
--- OUTSIDE RECORDS SUMMARY | 2024-10-06 12:52 | XMS_ITS | Encounter Summary ---
Author Organization [employer] Address 75 [facility] 7t [place] [address] Care Team Providers Care Soil Scientist Name Role Phone Amanda Watkins MD Primary Care Provide r Hiro Ram Unavailable Unavailable Reason for Visit * Reason Onset Date Comments Hospital Follow-up 04/04/2024 Encounter Details Date Type Department Care Team (Late st Contact Info) Description 04/04/2024 Telephone [facility] MEDICINE [address] [place] [address] Amanda Watkins MD [address] [place] [address] Hospital Follow-up Social History Tobacco Use Types [...] from pt requesting a HDF appt. Hospital: [facility] Date of admission: 03/18 Discharge date: 03/21 Diagnosed: Cellulitis documented in this encounter Plan of Treatment Upcoming Encounters Date Type Department Care Team (Late st Contact Info) Description 10/24/2024 2:00 PM EDT Office Visit [facility] OPTOMETRY [address] [place] [address] Emiliano, Elisa, OD [address] [place] [address] 11/28/2024 1:45 PM EDT Office Visit [facility] MEDICINE [address] [place] [address] Amanda Watkins MD [address] [place] [address] documented as of this encounter Visit Diagnoses Not on filedocumented in this encounter Additional Health Concerns Assessment Noted Time PHQ-9 Depression Total Score: 10 024 3:23 PM EDT documented as of this encounter Care Teams Soil Scientist Relationship Specialty Start Date End Date Amanda Watkins MD [address] [place] [address] PCP - General Family Medicine 04/07/19 Hiro Ram FNP [address] [place] [address] Nurse Practitioner Family Medicine 07/06/23 [facility] 07/03/22 08/16/24 Ja [facility] 08/10/24 documented as of this encounter
--- OUTSIDE RECORDS SUMMARY | 2024-10-06 12:52 | XMS_ITS | Encounter Summary ---
Author Organization [employer] Address 75 [facility] 7t [place] [address] Care Team Providers Care Blind Teacher Name Role Phone Amanda Watkins MD Primary Care Provide r Hiro Ram Unavailable Unavailable Reason for Visit * Reason Comments Med Refill Encounter Details Date Type Department Care Team (Late st Contact Info) Description 02/11/2024 Refill [facility] MEDICINE [address] [place] [address] Amanda Watkins MD [address] [place] [address] Type 2 diabetes mellitus with other specified complication, unspecified whether chcf insulin use ([facility]) Social History Tobacco Use Types [...] 10/24/2024 2:00 PM EDT Office Visit [facility] OPTOMETRY [address] [place] [address] Emiliano, Elisa, OD [address] [place] [address] 11/28/2024 1:45 PM EDT Office Visit [facility] MEDICINE [address] [place] [address] Amanda Watkins MD [address] [place] [address] documented as of this encounter Visit Diagnoses Diagnosis Type 2 diabetes mellitus with other specified complication, unspecified whether intermediate manager insulin use ([facility]) documented in this encounter Additional Health Concerns Assessment Noted Time PHQ-9 Depression Total Score: 10 024 3:23 PM EDT documented as of this encounter Care Teams Blind Teacher Relationship Specialty Start Date End Date Amanda Watkins MD [address] [place] [address] PCP - General Family Medicine 04/07/19 Hiro Ram FNP [address] [place] [address] Nurse Practitioner Family Medicine 07/06/23 [facility] 07/03/22 08/16/24 Ja [facility] 08/10/24 documented as of this encounter
--- OUTSIDE RECORDS SUMMARY | 2024-10-06 12:52 | XMS_ITS | Data Portability ---
Author Organization [employer], [place] [employer] Address [address] [place] [address] Care Team Providers Care Heel Dipper Name Role Phone HIM [facility] OTHER [facility] OTHER [phone] CRUZ MAURICE Primary Care Provider Assessment Encounter Date Assessment Date Assessment LastModified by Organization Details LastModified Time 02/09/2024 02/09/2024 I provided real -time medical direction via phone for this encounter, and was available for additional phone based assistance as needed. I have reviewed and agree with the Assessment and Plan as documented by the Digital Coordinator. We discussed the diagnostic uncertainty of home [...] to call 911- verbalized understanding of instruction [email or web address] Not available 02/10/2024 00:01:48 03/27/2024 03/27/2024 I provided real -time medical direction via phone for this encounter, and was available for additional phone based assistance as needed. I have reviewed and agree with the Assessment and Plan as documented by the Digital Coordinator. We discussed the diagnostic uncertainty of home [...] to call 911- verbalized understanding of instruction [email or web address] Not available 03/27/2024 16:48:02 05/29/2024 05/29/2024 service [...] primary team [email or web address] Not available 05/29/2024 17:22:24 09/25/2024 09/25/2024 As noted, we were called to see this patient regarding concerns of R ear pain. Evaluation in the field was performed by my oil burner installer colleague, as noted above, I provided real-time direction and supervision for this visit. The evaluation revealed 74y F with R otitis externa. Treat w drops. Precuatoins. Impression: R otitis externa Plan: Otic antibiotic drops. Primary care, consider f/u in ~14d to confirm resolution Disposition: We discussed the diagnostic uncertainty of home visits and the risk associated with this. In this case, the patient and I felt this to be an acceptable and reasonable amount of risk given the benefit of avoiding an ED visit. We discussed the need to seek care urgently/emergen tly in the setting of any new or worsening serious symptoms, particularly fever, worsening pain, loss of hearing, dizziness atilhou Not available 09/25/2024 17:38:29 Plan of Treatment Reminders Order Date Submit Date Provider Last Modified By Organization Details Last Modified Time Details Appointments None recorded. Lab culture, urine 2023 [place] [facility] (Centralized Electronic Ordering - All Locations), Patient Can Go To The Location Of Their Choice, [id number] 4 08:09:10 urinalysis, dipstick 2023 024 [facility], [address] [place] [address], [id number], 4 20:30:58 glucose, fingerstick , blood 2023 024 [email or web address] 0 [facility], [address] [place] [address], [phone], 4 16:33:19 Referral None recorded. Procedures None recorded. Surgeries None recorded. Imaging None recorded. Medication Orders Ciprodex 0.3 %-0.1 % ear drops,suspe nsion 2024 025 [facility], [address] [place] [address], [id number], 5 12:33:11 clotrimazol e 1 % topical cream 2023 024 [facility], [address] [place], [place], [id number], 4 10:37:01 bacitracin 500 unit/gram topical ointment 2023 024 [email or web address] 0 [facility], [address] [place], [place], [id number], 4 11:28:20 bacitracin 500 unit/gram topical ointment 2023 024 [facility], [address] [place], [place], [id number], 4 14:30:32 doxycycline hyclate 100 mg tablet 2023 024 [email or web address] 0 [facility], [address] [place], [place], [id number], 16:35:58 doxycycline hyclate 100 mg capsule 2023 024 [id number], [address] [place], [address], 4 16:36:03 mupirocin 2 % topical ointment 2023 024 [id number], [address] [place], [address], 4 16:36:03 Patient TargetsNo targets recorded. Patient Instructions Encounter Date Encounter Id Patient Instructions Last Modified By Organization Details Last Modified Time 02/09/2024 [id number] wound care* [email or web address] Not available 16:35:58 03/27/2024 [id number] wound care* [email or web address] Not available 11:28:21 Reason for Referral None Reported. Results Created Date Observation Date Name Description Value Unit Range Abnormal Flag Note LastModifiedBy Organization Detail LastModifiedTime 02/09/20 24 02/09/2024 gluco se, finge rstic k, blood Blood Glucose: mg/dl 148 Not Available [facility] [address] [place] [address], [phone], 02/09/2024 16:30:22 05/29/20 24 05/31/2024 URINE CULTU RE,CO MPREH ENSIV E urine culture,comp rehensive Final report Not Available [facility] ([facility]) [address] [facility], [place], [address], 05/31/2024 08:09:10 05/29/20 24 05/31/2024 URINE CULTU RE,CO MPREH ENSIV E result 1 COMMEN T Mixed uroge nital mary Great er than 100,0 00 colon y formi ng units per mL Not Available [facility] ([facility]) [address], [place], [address], 05/31/2024 08:09:10 Result Notes None recorded. Medical Equipment None Reported. Allergies Allergen ID Allergen Name Allergen Category Reaction Reaction Severity Criticality Documentation Date Start Date Code Code System Note Provider Name and Address Organization Details Recorded Time 5119 codeine medicatio n Not available Not available Not available 12/30/2023 6610 RxNorm Radha Foster MD [address] [facility],[address], [place], [phone], [employer] 14:14:47 Medications Name Sig Start Date Stop [...] with needle 1 mL 31 gauge x 12/22 USE DAILY WITH INSULIN active Not Available [...] 2023 active Not Available Not Available Not Avai lable oxycodone 5 mg tablet active Not Available Not Available No t Available Stool Softener-Lax ative 8.6 mg-50 mg tablet TAKE 1 TABLET BY MOUTH TWICE DAILY active Not Available Not Available No t Available Ciprodex 0.3 %-0.1 % ear drops,suspen rabia INSTILL 4 DROPS INTO AFFECTED EAR(S) BY OTIC ROUTE 2 TIMES PER DAY FOR 7 DAYS 2024 active Not Available Not Available Not Avai lable Alcohol Prep Pads USE FOUR TIMES DAILY [...] Not Available Not Available Vitals Date Recorded Heart rate Body height Body temperature Respiratory rate Oxygen saturation Oxygen saturation in Arterial blood by Pulse oximetry Body weight Systolic blood pressure Diastolic blood pressure Provider Name and Address Organization Details Last Updated DateTime 4 57 /min 154.94 cm 97.8 [degF] 16 /min 92 % 92 % 896800. 184 g 126 mm[Hg] 76 mm[Hg] Not Available [employer] 4 16:16:18 Date Recorded Body temperature Oxygen saturation Oxygen saturation in Arterial blood by Pulse oximetry Body weight Respiratory rate Heart rate Systolic blood pressure Diastolic blood pressure Provider Name and Address Organization Details Last Updated DateTime 4 97.6 [degF] 96 % 96 % 645741. 592 g 16 /min 62 /min 130 mm[Hg] 66 mm[Hg] Not Available [employer] 4 15:32:02 Date Recorded Respiratory rate Oxygen saturation Oxygen saturation in Arterial blood by Pulse oximetry Body height Heart rate Body temperature Body weight Systolic blood pressure Diastolic blood pressure Provider Name and Address Organization Details Last Updated DateTime 4 16 /min 94 % 94 % 157.48 cm 60 /min 98.7 [degF] 955825. 448 g 129 mm[Hg] 77 mm[Hg] Not Available [employer] 4 11:19:40 Date Recorded Heart rate Body height Body temperature Respiratory rate Oxygen saturation Oxygen saturation in Arterial blood by Pulse oximetry Body weight Systolic blood pressure Diastolic blood pressure Provider Name and Address Organization Details Last Updated DateTime 4 58 /min 134.62 cm 99.3 [degF] 16 /min 95 % 95 % 237886. 632 g 150 mm[Hg] 73 mm[Hg] Not Available [facility] 4 17:02:13 Date Recorded Body temperature Respiratory rate Oxygen saturation Oxygen saturation in Arterial blood by Pulse oximetry Heart rate Systolic blood pressure Diastolic blood pressure Provider Name and Address Organization Details Last Updated DateTime 5 99.2 [degF] 14 /min 98 % 98 % 60 /min 108 mm[Hg] 57 mm[Hg] Not Available [facility] 5 17:25:24 Social History None recorded. Functional Status None recorded. Mental Status None recorded. Family History Nothing Reported. Medical History No medical history recorded. Gynecological HistoryNo gynecological history recorded. Obstetrics History GPAL:G 0 P 0 0 0 0 Past Encounters Encounter ID Performer Location Encounter Start Date Encounter Closed Date Diagnosis/Indication Diagnosis SNOMED-CT Code Diagnosis ICD10 Code Diagnosis Note [id number] Radha Foster MD [facility] - [facility] [address] [place] [phone] 12/30/2023 14:10:14 12/31/2023 21:23:21 Cellulitis of lower limb 161758592 L03.119 left lower leg primarily ? starting on right- has percocet 10/325 q 12 hrs- may have otc tylenol 2 x per day in between-bryson raymond confirms he has regular Tylenol at homeAdvise [...] better staph coverage-a dvised to apply sparingly. [id number] Radha Foster MD [facility] - [facility] [address] [place] [phone] 02/09/2024 16:16:11 02/10/2024 13:33:55 Cellulitis of lower limb 321740471 L03.119 left lower leg primarily, less on right- had percocet 10/325 q 12 hrs- no longer on med list-may have otc tylenol 4 x per day in between-bryson raymond confirms he has regular Tylenol at homeAdvise [...] better staph coverage-a dvised to apply sparingly. [id number] Angely Lake MD [facility] - [facility] [address] [place] [phone] 02/23/2024 15:31:54 02/23/2024 22:21:20 Peripheral vascular disease 879404895 I73.9 73 year old female being evaluated [...] assessment and plan as documented by the oil burner installer. I provided real-time medical direction for this encounter and was immediatel y available to provide additional phone-base d assistance as needed. We discussed the diagnostic uncertaint y of home visits and associated risks. We discussed the need to seek care urgently/e mergently in the setting of any new or worsening symptoms. [id number] Radha Foster MD [facility] [address] [place] [phone] 03/27/2024 11:19:23 03/27/2024 22:47:07 Wound of skin 825725041 T14.8XXA Advised to elevate the leg/not use [...] reviewed she is only allergic to codeine. [id number] Len Nguyen MD [facility] [address] [place] [phone] 05/29/2024 17:02:10 05/30/2024 10:24:58 Tinea cruris 870755534 B35.6 Urinary symptoms 2378232 08 R39.9 [id number] Michelle Rg MD [facility] [address] [place] [phone] 09/25/2024 17:25:19 09/26/2024 08:34:36 Otitis externa of right ear 1062129630 690687 H60.91 Health Concerns Section Related Observation LastModified by Organization Detai ls LastModified Time None Recorded Concern Status LastModified by Organization Details LastModified Time None Recorded Advance Directives Directive None Recorded Payers Encounter Date Sequence Insurance Name Policy Number Policy Meza Covered Member ID Meza Member ID Guarantor Name 02/09/2024 1 [facility] - DOS ON OR AFTER 2022 - DUAL ELIGIBLE - INTERMEDIATE OPTIONS AND ONE CARE (MEDICARE REPLACEMENT/ADV ANTAGE - HMO) Mary Lou Head Cisneros [id number] Mary Loujack Garnero Cisneros 02/23/2024 1 [facility] - DOS ON OR AFTER 2022 - DUAL ELIGIBLE - INTERMEDIATE OPTIONS AND ONE CARE (MEDICARE REPLACEMENT/ADV ANTAGE - HMO) Mary Lou Head Cisneros [id number] Mary Lou Garnero Cisneros 03/27/2024 1 [facility] - DOS ON OR AFTER 2022 - DUAL ELIGIBLE - INTERMEDIATE OPTIONS AND ONE CARE (MEDICARE REPLACEMENT/ADV ANTAGE - HMO) Mary Lou Head Cisneros [id number] Mary Lou Head Blayne 05/29/2024 1 [facility] - DOS ON OR AFTER 2022 - DUAL ELIGIBLE - INTERMEDIATE OPTIONS AND ONE CARE (MEDICARE REPLACEMENT/ADV ANTAGE - HMO) Mary Lou Cisneros [id number] Mary Lou Cisneros 09/25/2024 1 [facility] - DOS ON OR AFTER 2022 - DUAL ELIGIBLE - INTERMEDIATE OPTIONS AND ONE CARE (MEDICARE REPLACEMENT/ADV ANTAGE - HMO) Mary Lou Cisneros [id number] Mary Lou Cisneros Notes Date Note Type Note Provider Name and Address Organization Details Recorded Time 02/09/2024 text/html HPI: PMHx: Varicose veinsCall returned to Mary Lou Cisneros to triage below. Reports pt having rash on left lower leg and having fluid filled bumps x 1 week. No fever. Mild itching at site. No open sores or pus. Per daughter pt seen by [facility] > 2 weeks ago for similar sx. Given rx for abx infection. Pt completed abx and rash returned. No pain at site. Pt daughter advised of dispsotiion, agrees to have [facility] evaluate patient again today. Reviewed home care advise, ER precautions and reasons to call back. .................... .................... .................... .................... .................... .................... .................... . CRC Nurse Triage Notes (Melinda Melvin): Comments: CRC RN did not require any additional information to process this visit. Digital Coordinator POC Test Results from Jerman Anderson Blood Glucose Measurement (16:42:48) Blood Glucose: 148 mg/dL .................... .................... .................... .................... .................... .................... .................... . Digital Coordinator Note From Jerman Anderson: [facility] visit for female patient with cellulitis. Pt presents conscious and alert. Pt Maori speaking only so daughter translated. Daughter reports that patient has had cellulitis for some time, [facility] and [facility] oral [...] as well. Blood glucose assessed. Consulted with [facility] Dr. Foster who prescribed additional course of doxycycline and more mupiricin. Family educated on proper wound care. Daughter asked to wait to bandage wounds since she was going to get patient into the shower. .................... .................... .................... .................... .................... .................... .................... . Disposition: FulfilledSEGMD: Patient seen in October and [...] PCP in the office. Radha Foster MD [address] [place] [address],[address], [place], [phone], [employer] 02/10/2024 00:01:57 02/23/2024 text/html HPI: Patient has wounds on her lower legs. RN called for a member with DM and lower leg ulcers. He was seen on February 08 and completed the antibiotics, but the wounds do not look any better. Member has an appt on Wednesday , could not get her seen today and placed visit for .Prescribed doxy at [facility] visit .................... .................... .................... .................... .................... .................... .................... . CRC Nurse Triage Notes (Nicole Bell): Comments: CRC RN DID NOT NEED FURTHER INFO .................... .................... .................... .................... .................... .................... .................... . Digital Coordinator Note From Abelardo Castro: Pt daughter concerned for wound/celilitis on legs not healing after antibiotic treatment. Pt denies fever pain edema or wheeping. Baseline vitals assessed. Cellulitis appears to be in healing stages. No bleeding or wheeping. Pictures uploaded. Pt sts has appt with pcp on Wednesday. . C contacted and [facility] spoke with pt and advised to monitor for worsening redness or edema. Pt advised to follow up with pcp. Pt education on signs indicating the ER. .................... .................... .................... .................... .................... .................... .................... . Disposition: Fulfilled Angely Lake MD [address] [place] [address],[address], [place], [phone], [employer] 02/23/2024 21:33:16 03/27/2024 text/html CRC Nurse Triage Notes (Rishi Domínguez): Reason For Request: left leg pain Chief Complaints: Pain PMH: Diabetes, Hypertension, COPD/Asthma Other Allergies: NKDA Comments: Agriculture Technician verified the member's name//address and phone number. [...] remains warm to the touch. Denies SOB .................... .................... .................... .................... .................... .................... .................... . Digital Coordinator Note From Markell Villagomez: Pt? s daughter/CG reports pt was seen at [facility] last week for cellulitis of the [...] instructed to f/u with wound clinic today. .................... .................... .................... .................... .................... .................... .................... . Disposition: Fulfilled Radha Foster MD [address] [facility],[address], [place], [address], [employer] 03/27/2024 16:49:56 05/29/2024 text/html HPI: pmhx: UTI, candidiasis of vagina UTI, urine retention.Call returned to Mary Lou Head [facility] to triage below. Reports having rash on callie area x 1 week. Per daughter no fluid filled spots. Small red pin point spots. Pt also having urinary frequency. Has applied Vaseline to area with mild relief. Per daughter concerned as pt is DM and has been scratching area concerned for infection. Unable to bring pt to [place] at [facility] as pt is bed bound. Agrees to [facility] referral. Confirmed address, contact number and allergies. .................... .................... .................... .................... .................... .................... .................... . CRC Nurse Triage Notes (Melinda Melvin): Chief Complaints: Rash, UTI/Pyelonephritis PMH: COPD/Asthma, Diabetes, Hypertension, COPD/Asthma Other Allergies: CODIENE Comments: CRC RN did not require any additional information to process this visit. Digital Coordinator Organization Information for Jerman Anderson [employer] Name: [employer] Address: [address] [place] [address], Trouble Operator: Jhon Strickland MD RAI No.: [id number] Digital Coordinator POC Test Results from Jerman Anderson Blood Glucose Measurement (16:52:17) Blood Glucose: 335 mg/dL Urine Dipstick (16:52:27) Urine leukocytes: + ALVIN Urine nitrites: + NIT Urine urobilinogen: - URO Urine protein: +/- PRO Urine pH: 6.0 pH Urine blood: 50 lesli/ul BLO Urine specific gravity: 1.005 SG Urine ketones: - KET Urine bilirubin: - ROSI Urine glucose: ++++ GLU .................... .................... .................... .................... .................... .................... .................... . Digital Coordinator Note From Jerman Anderson: [facility] visit for female pt. Pt presents with family and ASSURANCE ENGINEER. Pt has reportedly had redness and irritation in her groin for 1 week in addition to high blood sugars. V/S taken as listed. Pt afebrile, though temp seems to be elevated with pt having taken acetaminophen today. ASSURANCE ENGINEER changed pt's diaper and redness was noted in addition to smell consistent with possible fungal infection. Obtained urine sample positive for leukocytes and nitrates and blood and glucose. Blood glucose elevated at 335 mg/dL. Family reports difficulty maintaining blood sugar and that pt has not adhered to dietary restrictions. Urine culture obtained. Consulted with [facility] Dr. Nguyen who prescribed clotrimazole and ordered urine culture. Reviewed red flags for ED. Pt education provided. Culture delivered to [facility]. [facility] Lab Orders: culture, urine: Performed .................... .................... .................... .................... .................... .................... .................... . Disposition: Fulfilled Len Nguyen MD [address] [facility],[address], [place], [phone], [employer] 05/29/2024 22:50:45 09/25/2024 text/html CRC Nurse Triage Notes (Edney, Margarita - RN): Chief Complaints: Earache, Back pain, Neck pain PMH: Hypertension, COPD/Asthma, Chronic Back Pain, Fibromyalgia, Osteoarthritis, Osteoporosis PMH Reviewed at 09/25/2024: Allergies Reviewed at 09/25/2024:46 Comments: Patient is c/o right ear, back and leg. Some blood noted on qtip.Pain started yesterday. Patient does not have any upper resp symptoms. Patient has chronic back pain. Hx of Fibromyalgia. No falls or injuries. Taking oxycodone and Gabapentin for pain as prescribed. No known fevers. No urinary symptoms. Family does not know patients allergies. Education provided on the response time and the member was advised to monitor reported s/s and seek emergency treatment if needed. Digital Coordinator Organization Information for Markell Villagomez [employer] Legal Name: [facility] Address: [address] [place] [address], Trouble Operator: Rob Bhagat MD [facility] No.: [id number] Digital Coordinator POC Test Results from Markell Villagomez Rapid COVID antigen (17:31:49) COVID: - Rapid influenza antigen (17:31:49) Flu: - CRC Nurse Triage Notes (Margarita Verde - PHILLIP): Chief Complaints: Earache, Back pain, Neck pain PMH: Hypertension, COPD/Asthma, Chronic Back Pain, Fibromyalgia, Osteoarthritis, Osteoporosis PMH Reviewed at 09/25/2024: Allergies Reviewed at 09/25/2024:46 Comments: Patient is c/o right ear, back and leg. Some blood noted on qtip.Pain started yesterday. Patient does not have any upper resp symptoms. Patient has chronic back pain. Hx of Fibromyalgia. No falls or injuries. Taking oxycodone and Gabapentin for pain as prescribed. No known fevers. No urinary symptoms. Family does not know patients allergies. Education provided on the response time and the member was advised to monitor reported s/s and seek emergency treatment if needed.[facility] HPI: known FM, chronic pain, uses oxycodone and gabapentin for this. 3-7d R ear pain. some sinus congestion .................... .................... .................... .................... .................... .................... .................... . Digital Coordinator Note From Markell Villagomez: This 74-year-old female with a history including but not limited to HTN, HLD, CHF all, fibromyalgia, OA, osteoporosis requested a visit today to address three to five days of sinus congestion and right ear pain. Patient is using OTC cold remedies with moderate relief. Patient denies any chest pain, shortness of breath, dyspnea on exertion, fevers, nausea, vomiting, diarrhea. Patient presents awake and alert, in no acute distress and speaking full sentences. Her vital signs are reasonably stable and she is afebrile. Nonfocal neurological exam. No sinus tenderness. Normal oropharynx exam. Right middle year is swollen, mild discomfort when pulling on the pinna and pressing on the tragus. Lungs are clear throughout auscultation. Abdomen is soft, nontender, nondistended. Trace lower extremity edema. Rapid COVID and flu testing are both negative. We discussed the diagnostic uncertainty of home visits and the risk associated with this. In this case, the patient and I felt this to be an acceptable and reasonable amount of risk given the benefit of avoiding an ED visit. I provided education on the patient's prescription and additional OTC/supportive care therapy. I recommend the patient follows up with her primary care physician this week, stay well hydrated and present to the emergency department for any new or worsening severe symptoms such as chest pain, severe shortness of breath, high fever, altered mental status. The patient interfamily were given the opportunity to ask questions and are agreeable to this plan. .................... .................... .................... .................... .................... .................... .................... . [facility] Consulted: Michelle Rg .................... .................... .................... .................... .................... .................... .................... . Disposition: Fulfilled Michelle Rg MD [address] [facility],[address] [facility], [place], [phone], [employer] 09/25/2024 18:01:43 OBGyn Episode No OBEpisode recorded.
--- OUTSIDE RECORDS SUMMARY | 2024-10-06 12:52 | XMS_ITS | Clinical Summary ---
Author Organization [facility] Address [address] [facility] [address] 0 [place] [address] Phone Care Team Providers Care Applications Architect Name Role Phone Amanda Watkins MD Primary [...] Communication [facility] [address] [place] [phone] Rose Rubio from Last 3 Months [...] Care Team (Late st Contact Info) Description 12/14/2024 2:00 PM EDT Office Visit [facility] [address] AGUILERA [address] [place] [phone] Tl Ibarra MD [address] [facility] [address] [place] [phone] Health Maintenance Due Date Last Done Comments Breast Cancer Screening 1950 Colorectal Cancer Screening: Annual FOBT 1998 Colorectal Cancer Screening: Colonoscopy 1998 Colorectal Cancer Screening: Sigmoidoscopy 1998 Diabetes: Ophthalmology Exam 03/01/2023 Diabetes: Pedal Pulse Checked 03/01/2023 Diabetes: Sensory Foot Exam 03/01/2023 Diabetes: Visual Foot Exam 03/01/2023 Diabetes: Hemoglobin A1C 11/30/2024 025, 09/01/2024, 03/06/2024 Hepatitis B Vaccine Aged Out 06/07/2007, 11/01/2006, 03/12/2006 No longer eligible based on patient's age to complete this topic Pneumococcal Vaccine: 65+ Years Completed 12/06/2023, 07/16/2016, 02/17/2013, Additional history exists Influenza Vaccine Completed 06/23/2024, , 09/30/2017, Additional history exists Insurance [facility] ([id number]) [facility] ([id number]) Care Teams Applications Architect Relationship Specialty Start Date End Date Amanda Watkins MD [address] [place] [phone] PCP - General Internal Medicine 03/01/23
--- OUTSIDE RECORDS SUMMARY | 2024-10-06 12:52 | XMS_ITS | Encounter Summary ---
Author Organization [employer] Address [address] [facility] 7t [place] [address] Care Team Providers Care Mentally Retarded Teacher Name Role Phone Amanda Watkins MD Primary Care Provide r Hiro Ram Unavailable Unavailable Reason for Visit * Reason Onset Date Comments DIRECTOR OF OPERATIONS Renewal cancelled at check in time Encounter Details Date Type Department Care Team (Late st Contact Info) Description 09/07/2024 Telephone [facility] MEDICINE [address] [place] [address] Kayley Alanis, PHILLIP DIRECTOR OF OPERATIONS Renewal cancelled at check in time Social History Tobacco Use Types Packs/Day Years [...] Telephone Encounter - Kayley Alanis RN - 09/15/2024 11:44 AM EST Received the following message from PCP today: Please let patient know if she cancels or no show to next appointment unfortunately I will have todiscontinue her medication thank you. TC via [id number], no answer. L/M listed above, requested they call back to reschedule missed Tele DIRECTOR OF OPERATIONS Appt. * Telephone Encounter - Kayley Alanis RN - 09/07/2024 1:48 PM EST Pts daughter cancelled Tele DIRECTOR OF OPERATIONS renewal appt for today while front desk representative was checking them in. 07/28/24 daughter cancelled Tele DIRECTOR OF OPERATIONS RV at check in d/t not being with patient. Last DIRECTOR OF OPERATIONS visit completed was May 12 2024. documented in this encounter Plan of Treatment Upcoming Encounters Date Type Department Care Team (Late st Contact Info) Description 10/24/2024 2:00 PM EDT Office Visit [facility] OPTOMETRY [address] [place] [address] Emiliano, Elisa, OD [address] [place], [place] [phone] 11/28/2024 1:45 PM EDT Office Visit [facility] MEDICINE [address] [place], [place] [phone] Amanda Watkins MD [address] [place] [phone] documented as of this encounter Visit Diagnoses Not on filedocumented in this encounter Additional Health Concerns Assessment Noted Time PHQ-9 Depression Total Score: 0 09/01/19 1:18 PM EST documented as of this encounter Care Teams Mentally Retarded Teacher Relationship Specialty Start Date End Date Amanda Watkins MD [address] [place] [phone] PCP - General Family Medicine 04/07/19 Hiro Ram FNP [address] [place] [phone] Nurse Practitioner Family Medicine 07/06/23 [facility] [employer] [facility] [employer] 08/10/24 documented as of this encounter
--- OUTSIDE RECORDS SUMMARY | 2024-10-06 12:52 | XMS_ITS | Encounter Summary ---
Author Organization [employer] Address [address] [facility] 7t [place] [address] Care Team Providers Care Bleach Supervisor Name Role Phone Amanda Watkins MD Primary Care Provide r Hiro Ram Unavailable Unavailable Reason for Visit * Reason Onset Date Comments nutrition appt request 09/07/2024 Encounter Details Date Type Department Care Team ([facility] st Contact Info) Description 09/07/2024 Telephone [facility] MEDICINE [address] [place] [address] Alie Tamez, SILAS [address] [place] [address] nutrition appt request Social History Tobacco Use Types Packs/Day Years [...] encounter Miscellaneous Notes * Telephone Encounter - Alie Ernie - 09/07/2024 11:13 AM EST Called PT to schedule a nutrition appt. PT daughter stated that Granddaughter is now taking care of scheduling appts for PT. Number given is not in service. Unable to Schedule appt documented in this encounter Plan of Treatment Upcoming Encounters Date Type Department Care Team (Late st Contact Info) Description 10/24/2024 2:00 PM EDT Office Visit [facility] OPTOMETRY [address] [place] [address] Emiliano, Elisa, OD [address] [place] [address] 11/28/2024 1:45 PM EDT Office Visit [facility] MEDICINE [address] [place] [address] Amanda Watkins MD [address] [place] [address] documented as of this encounter Visit Diagnoses Not on filedocumented in this encounter Additional Health Concerns Assessment Noted Time PHQ-9 Depression Total Score: 0 09/01/19 25 1:18 PM EST documented as of this encounter Care Teams Bleach Supervisor Relationship Specialty Start Date End Date Amanda Watkins MD [address] [place] [address] PCP - General Family Medicine 04/07/19 Hiro Ram FNP [address] [place] [address] Nurse Practitioner Family Medicine 07/06/23 [facility] documented as of this encounter
--- OUTSIDE RECORDS SUMMARY | 2024-10-06 12:52 | XMS_ITS | Encounter Summary ---
Author Organization [employer] Address [address] [facility] 7t [place] [address] Care Team Providers Care Batch Plant Supervisor Name Role Phone Amanda Watkins MD Primary Care Provide r Hiro Ram Unavailable Unavailable Reason for Visit * Reason Comments Med Refill Encounter Details Date Type Department Care Team (Late st Contact Info) Description 11/18/2023 Refill [facility] MEDICINE [address] [place] [address] Hiro Ram FNP Social History Tobacco Use [...] Description 10/24/2024 2:00 PM EDT Office Visit [facility] OPTOMETRY [address] [place] [address] Emiliano, Elisa, OD [address] [place] [address] 11/28/2024 1:45 PM EDT Office Visit [facility] MEDICINE [address] [place] [address] Amanda Watkins MD [address] [place] [address] documented as of this encounter Visit Diagnoses Not on filedocumented in this encounter Additional Health Concerns Assessment Noted Time PHQ-9 Depression Total Score: 8 07/19/20 23 11:34 AM EST documented as of this encounter Care Teams Batch Plant Supervisor Relationship Specialty Start Date End Date Amanda Watkins MD [address] [place] [phone] PCP - General Family Medicine 04/07/19 Hiro Ram FNP [address] [place] [address] Nurse Practitioner Family Medicine 07/06/23 [facility] 07/03/22 08/16/24 [facility] 08/10/24 documented as of this encounter
--- OUTSIDE RECORDS SUMMARY | 2024-10-06 12:52 | XMS_ITS | Continuity of Care Document ---
Author Organization [employer] Address [address] [place] [address] Care Team Providers Care Straight Slicing Machine Operator Name Role Phone HIM [facility] OTHER [facility] OTHER [facility] Primary Care Provider Assessment Encounter Date Assessment Date Assessment LastModified by Organization Details LastModified Time 09/25/2024 09/25/2024 As noted, we were called to see this patient regarding concerns of R ear pain. Evaluation in the field was performed by my client solutions specialist colleague, as noted above, I provided real-time [...] We discussed the need to seek care urgently/emerge ntly in the setting of any new or worsening serious symptoms, particularly fever, worsening pain, loss of hearing, dizziness atilhou Not available 09/25/2024 17:38:29 Plan of Treatment Reminders Order Date Submit Date Provider Last Modified By Organization Details Last Modified Time Details Appointments None recorded. Lab None recorded. Referral None recorded. Procedures None recorded. Surgeries None recorded. Imaging None recorded. Medication Orders Ciprodex 0.3 %-0.1 % ear drops,susp ension 2024 025 [facility], [address] [facility], [place], [place], [phone], 12:33:11 Patient TargetsNo targets recorded. Patient InstructionsNo instructions recorded. Reason for Referral None Reported. Medical Equipment None Reported. Allergies Allergen ID Allergen Name Allergen Category Reaction Reaction Severity Criticality Documentation Date Start Date Code Code System Note Provider Name and Address Organization Details Recorded Time 5119 codeine medicatio n Not available Not available Not available 12/30/2023 5480 RxNorm Radha Foster MD [address] [facility],[address], [place], [phone], [facility] [employer] 14:14:47 Medications Name Sig Start Date Stop [...] Available Not Available Vitals Date Recorded Body temperature Respiratory rate Oxygen saturation Oxygen saturation in Arterial blood by Pulse oximetry Heart rate Systolic blood pressure Diastolic blood pressure Provider Name and Address Organization Details Last Updated DateTime 99.2 [degF] 14 /min 98 % 98 % 60 /min 108 mm[Hg] 57 mm[Hg] Not Available [employer] [facility] 17:25:24 Social History None recorded. Functional Status None recorded. Mental Status None recorded. Family History Nothing Reported. Medical History No medical history recorded. Gynecological HistoryNo gynecological history recorded. Obstetrics History GPAL:G 0 P 0 0 0 0 Past Encounters Encounter ID Performer Location Encounter Start Date Encounter Closed Date Diagnosis/Indication Diagnosis SNOMED-CT Code Diagnosis ICD10 Code Diagnosis Note [id number] Michelle Rg MD Main - [facility] [address] [place] [phone] 09/25/2024 17:25:19 09/26/2024 08:34:36 Otitis externa of right ear [id number] H60.91 Health Concerns Section Related Observation LastModified by Organization Detai ls LastModified Time None Recorded Concern Status LastModified by Organization Details LastModified Time None Recorded Payers Encounter Date Sequence Insurance Name Policy Number Policy Meza Covered Member ID Meza Member ID Guarantor Name 09/25/2024 1 [facility] - DOS ON OR AFTER 2022 - DUAL ELIGIBLE - [employer] AND ONE [employer] (MEDICARE REPLACEMENT/ADV ANTAGE - HMO) Mary Lou Cisneros [id number] Mary Lou Cisneros Notes Date Note Type Note Provider Name and Address Organization Details Recorded Time 09/25/2024 text/html [facility] Nurse Triage Notes (Margarita Verde - RN): Chief Complaints: Earache, Back pain, [...] and seek emergency treatment if needed. 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 3-7d R ear pain. some sinus congestion .................... .................... .................... .................... .................... .................... .................... . Digital Manager Note From Markell Villagomez: This 74-year-old female [...] .................... .................... .................... .................... .................... .................... . [facility] Consulted: Michelle Rg .................... .................... .................... .................... .................... .................... .................... . Disposition: Fulfilled Michelle Rg MD [address] [facility], [place], [phone], [employer] [facility] [place] 09/25/2024 18:01:43 OBGyn Episode No OBEpisode recorded.
--- OUTSIDE RECORDS SUMMARY | 2024-10-06 12:52 | XMS_ITS | Encounter Summary ---
Author Organization [employer] Address [address] [facility] 7t [place] [address] Care Team Providers Care Professional Engineer Name Role Phone Amanda Watkins MD Primary Care Provide r Hiro Ram Unavailable Unavailable Reason for Visit * Reason Comments Med Refill Encounter Details Date Type Department Care Team (Late st Contact Info) Description 07/05/2024 Refill [facility] MEDICINE [address] [place] [address] Amanda Watkins MD [address] [place] [address] Social History Tobacco Use Types Packs/Day Years [...] Description 10/24/2024 2:00 PM EDT Office Visit [facility] OPTOMETRY [address] [place] [address] Emiliano, Elisa, OD [address] [place] [address] 11/28/2024 1:45 PM EDT Office Visit [facility] MEDICINE [address] [place] [address] Amanda Watkins MD [address] [place] [address] documented as of this encounter Visit Diagnoses Not on filedocumented in this encounter Additional Health Concerns Assessment Noted Time PHQ-9 Depression Total Score: 10 024 3:23 PM EDT documented as of this encounter Care Teams Professional Engineer Relationship Specialty Start Date End Date Amanda Watkins MD [address] [place] [phone] PCP - General Family Medicine 04/07/19 Hiro Ram FNP [address] [place] [address] Nurse Practitioner Family Medicine 07/06/23 [facility] 07/03/22 08/16/24 Ja [facility] 08/10/24 documented as of this encounter
--- OUTSIDE RECORDS SUMMARY | 2024-10-06 12:52 | XMS_ITS | Encounter Summary ---
Author Organization [employer] Address [address] [facility] 7t [place] [address] Care Team Providers Care Amusement Park Entertainer Name Role Phone Amanda aWtkins MD Primary Care Provide r Hiro Ram Unavailable Unavailable Reason for Visit * Reason Onset Date Comments Hospital Follow-up 08/16/2024 Encounter Details Date Type Department Care Team (Late st Contact Info) Description 08/16/2024 Telephone [facility] MEDICINE [address] [place] [address] Amanda Watkins MD [address] [place] [address] Hospital Follow-up Social History Tobacco Use Types [...] from pt requesting a HDF appt. Hospital: [facility] Date of admission: 08/12/24 Discharge date: 08/15/2024 Diagnosed: (water in the lungs) *Send message to [place] Clinical Care Coordinators documented in this encounter Plan of Treatment Upcoming Encounters Date Type Department Care Team (Late st Contact Info) Description 10/24/2024 2:00 PM EDT Office Visit [facility] OPTOMETRY [address] [place] [address] Elisa Cummings, OD [address] [place] [address] 11/28/2024 1:45 PM EDT Office Visit [facility] MEDICINE [address] [place] [address] Amanda Watkins MD [address] [place] [address] documented as of this encounter Visit Diagnoses Not on filedocumented in this encounter Additional Health Concerns Assessment Noted Time PHQ-9 Depression Total Score: 10 06/06/2 024 3:23 PM EDT documented as of this encounter Care Teams Amusement Park Entertainer Relationship Specialty Start Date End Date Amanda Watkins MD [address] [place] [address] PCP - General Family Medicine 04/07/19 Hiro Ram FNP [address] [place] [address] Nurse Practitioner Family Medicine 07/06/[address] [facility] 07/03/22 08/16/24 Ja [facility] 08/10/24 documented as of this encounter
--- OUTSIDE RECORDS SUMMARY | 2024-10-06 12:52 | XMS_ITS | Encounter Summary ---
Author Organization [employer] [facility] Address [address] [place] [address] Care Team Providers Care Service Delivery Analyst Name Role Phone Amanda Watkins MD Primary Care Provide r Hiro Ram Unavailable Unavailable Reason for Referral * Consultation (Routine) - Authorized Specialty Diagnoses / Procedures Referred By Contlinda t Referred To Contact Dental Crewman [employer] / Dentistry Diagnoses Type 2 diabetes mellitus with hyperglycemia, with long-term current use of insulin (CMS/HCC) Amanda Watkins MD [address] [place] [address] Phone: tel: fax: Referral ID Status Reason Start Date Expiration Date Visits Requested Visits Authorized [id number] Authorized Consult and Treat 09/14/2024 09/14/2025 1 1 Encounter Details Date Type Department Care Team (Late st Contact Info) Description 09/14/2024 11:00 AM EST Telemedicine [facility] [address] [place] [address] Vilma Gilbert PharmD [address] [place] [address] Type 2 diabetes mellitus with hyperglycemia, with long-term current use of insulin (CMS/HCC) (Primary Dx); Primary hypertension; Stage 3b chronic kidney disease (CMS/HCC) [...] of this encounter Progress Notes * Vilma Gilbetr PharmD - 09/14/2024 11:00 AM EST Pharmacy Consult Visit Type: MT Visit Pharmacist: Vilma Gilbert PharmD Referral Diagnosis: No referral Pharmacy Recommendations for Provider: Please consider switching Lantus vials to Lantus Solostar Pens for ease of administration. Since patient receives monthly medboxes, please contact medbox pharmacist with any medication changes (initiations, discontinuation, dose adjustments) Background/ Visit Intake Mary Lou Cisneros is a 74 y.o. patient here for a follow-up visit. Visit completed over the phone Allergies: is allergic to codeine. Preferred Pharmacy: [facility] [address] [facility] [id number] Medbox: Yes, last medbox on 09/12/24 . Assessment & Plan Adherence: History: Adherence: Medication Organization: Uses medboxes from [facility] pharmacy Note in pharmacy system - per patient request, levothyroxine to be removed from medboxes and is nowin vials. Patient reports being unsure if levothyroxine is being taken from vial, as they report their HL7 INTERFACE DEVELOPER takes care of their medications. Missed doses: Denies missed doses Patient reports having a HL7 INTERFACE DEVELOPER that comes to administer their medications. Read/Write: Yes, in Slovenian Goals of therapy: Improve adherence & minimize missed doses (<2 missed doses/week) Recommendations/Monitoring: Since patient receives monthly medboxes, please contact medbox pharmacist with any medication changes (initiations, discontinuation, dose adjustments) Diabetes Pharmacologic Therapy: Trulicity 0.75 mg subcutaneous once weekly Insulin glargine (Lantus vials) 50 units subcutaneous once daily History: Patient unable to confirm names of their injectable medications or dosing of the Lantus, as they report their HL7 INTERFACE DEVELOPER administers it for them. Medication history: Metformin and glipizide discontinued at 03/21/24 hospital discharge Trulicity discontinued 04/2024 due to hypoglycemic events, however has now restarted therapy as of 09/01/24. Farxiga discontinued 08/15/24 due to pre-disposition to urinary related ADEs and A1c >10%. SMBG: Currently uses Widbook testing system Patient denies having access to SMBG meter or log at the time of the visit. Patient unable to recall BG readings at this time. Patient reports that HL7 INTERFACE DEVELOPER checks their BG for them. HL7 INTERFACE DEVELOPER not with patient at time of the call to report home readings. Patient reports planning to use Freestyle Mickey 2 CGM system following CGM teaching appointment on 09/15/24 Lab monitoring: Lab Results Component Value Date K 4.7 09/01/2024 NA 138 09/01/2024 CREATININE 1.58 (H) 09/01/2024 EGFR 32 09/01/2024 HGBA1C 11.4 (H) 09/01/2024 HGBA1C 11.6 (A) 09/01/2024 HGBA1C 7.2 (A) 03/06/2024 Additional recommendations per ADA: On ACEI/ARB: No On Aspirin: Yes On Statin: Yes Dental exam in the past 6 months: No Eye Exam scheduled 10/24/24 at [facility] Goals of therapy: Per the ADA Standards of Medical Care in Diabetes - 2023 Achieve A1c of <8% while also minimizing episodes of hypoBG (<70 mg/dL) Age >65 yr with comorbidities (CHF, HTN, CKD, depression, incontinence, ADL impairment) Plan: Please consider switching Lantus vials to Lantus Solostar Pens for ease of administration. Pharmacist to place referral for dental services. Trulicity 0.75 mg weekly re-initiated on 09/01/24. Please consider dose increase of Trulicity to 1.5mg weekly in 1 month following re-initiation, if patient tolerates therapy. Alternatively, may consider dose increase of Lantus. Patient scheduled for [facility] visit for T2DM management on 09/15/24. Patient instructed to bring CGM reader/sensor and Freestyle lite meter or SMBG log to appointment, for CGM application teaching and review of SMBG data. Patient reported understanding and agreeable to plan. Cardiovascular (HTN, HLD, Afib, CHF, coronary atherosclerosis) Pharmacologic Therapy: Amlodipine 5 mg oral once daily Torsemide 20 mg oral once daily Aspirin 81 mg oral once daily Eliquis 5 mg oral twice daily Atorvastatin 80 mg oral once dialy History: Amiodarone and metoprolol recently discontinued at hospitalization on 08/15/24 Patient reports having a home BP monitor, and reports that their HL7 INTERFACE DEVELOPER checks their BP. Patient denies having SMBP log at the time of the call and is unable to recall recent readings. PCAnot with patient at time of the call to report home readings. Recent Blood Pressure values: BP Readings from Last 4 Encounters: 09/01/24 (!) 156/74 05/02/24 113/65 03/06/24 136/66 02/28/24 124/64 Pulse Readings from Last 4 Encounters: 09/01/24 69 05/02/24 50 03/06/24 63 02/28/24 68 Lab monitoring Lab Results Component Value Date NA 138 09/01/2024 K 4.7 09/01/2024 CREATININE 1.58 (H) 09/01/2024 EGFR 32 09/01/2024 Lab Results Component Value Date CHOL 107 09/01/2024 LDLCHOLCAL 34 09/01/2024 HDL 25 (L) 09/01/2024 TRIG 241 (H) 09/01/2024 AST 29 07/06/2024 ALT 11 07/06/2024 Goals of Therapy: Per JNC 8: Achieve & maintain BP <140/90mmHg Goals of Therapy: ACC/AHA 2018 Cholesterol Guidelines: Ensure evidence based and safe use of medications for secondary prevention of ASCVD. Plan: Upon review of SMBP, if above goal at >140/90 mmHg, please consider dose increase of amlodipine from 5 mg to 10 mg once daily for additional blood pressure lowering effect. TG elevated above goal at >150 mg/dL. Continue with diet and lifestyle modifications for TG reduction. Referral to nutrition services placed by PCP on 09/01/24 Education: Counseling provided to SMBP & log results for review in follow up. Chronic Kidney Disease (stage 3b (eGFR 30-44)) History Follows with [facility] nephrology (Dr. Ibarra) Labs monitoring: Lab Results Component Value Date EGFR 32 09/01/2024 EGFR 28 08/22/2024 EGFR 25 08/22/2024 CREATININE 1.58 (H) 09/01/2024 CREATININE 1.78 (H) 08/22/2024 CREATININE 1.94 (H) 08/22/2024 CrCl (AdjBW = 34.3 mL/min on 09/01/24 Goals of Therapy: Ensure safe & appropriate medication use in the setting of declining renal function. Plan: Pharmacist reviewed current medications for renal dose adjustments, none required at this time. Per clinical pharmacology, if CrCl continues to decline to <30 mL/min, duloxetine is to be avoided. Patient due for annual urine microalbumin. Pharmacist ordered via standing order. Immunizations History: Immunization History Administered Date(s) Administered Hep B, adult 03/12/2006, 11/01/2006, 06/07/2007 Influenza injectable quadrivalent IIV4 with preservative 05/07/2015, 08/17/2016, 09/30/2017 Influenza injectable quadrivalent preservative free 07/08/2018 Influenza, Split (incl. purified surface antigen) 05/11/2012 Influenza, seasonal, injectable, preservative free 06/23/2024 MMR 03/12/2006 Moderna Covid-19 Vaccine 12+ 10/03/2020, 12/11/2020, 07/24/2021 Pneumococcal Conjugate PCV 13 07/16/2016 Pneumococcal Conjugate PCV 20 12/06/2023 Pneumococcal Polysaccharide PPSV23 01/29/2006, 02/17/2013 TD (adult), 2 Lf tetanus toxoid, preservative free, adsorbed 03/12/2006 Zoster, live 05/31/2015 Goals of therapy: Ensure patient is up to date per the CDC Adult Immunization Schedule. Assessment/Plan: Influenza [id number] vaccine: Up-to-date . Next dose due annually. COVID-19 [id number] vaccine: Due . Next dose due annually. Hepatitis B series (Age 60+ with risk factors): Up-to-date . Pneumococcal vaccines (Age >65): Up-to-date Shingrix series (age > 50 ): Due . RSV vaccine (Age 75+): Due Td/TDaP (within the past 10 years): Due . Next dose due every 10 years. Plan: Patient interested in receiving the Shingrix and RSV vaccine at this time. Appointment made in [facility] pharmacy for 09/15/24 Education: Indication of all recommended/administered vaccines Patient Action Plan Reviewed today with plan to revisit at follow up in 6 months. Patient is scheduled with [facility] for T2DM/HTN management on 09/15/24, patient reported understanding and confirmed appointment. Continue to adhere to medication with assistance of medbox program Attend CDTM appointment for CGM application teaching Monitor BP daily and log results to bring to upcoming appointment. Receive all recommended vaccinations documented in this encounter Plan of Treatment Upcoming Encounters Date Type Department Care Team (Late st Contact Info) Description 10/24/2024 2:00 PM EDT Office Visit [facility] [address] [place] [address] Elisa Cummings, OD [address] [place] [address] 11/28/2024 1:45 PM EDT Office Visit [facility] [address] [place] [address] Amanda Watkins MD [address] [place] [address] Scheduled Orders Name Type Priority Associated Diagnoses Orde r Schedule Albumin, Random Urine W/Creatinine Lab Routine Type 2 diabetes mellitus with hyperglycemia, with long-term current use of insulin ([facility]) Expected: 09/14/2024 (Approximate), Expires: 09/14/2025 Scheduled Referrals Name Type Priority Associated Diagnoses Orde r Schedule Referral to [facility] Dental Adult Outpatient Referral Routine Type 2 diabetes mellitus with hyperglycemia, with long-term current use of insulin (CMS/HCC) Expected: 09/14/2024 (Approximate), Expires: 09/14/2025 documented as of this encounter Visit Diagnoses Diagnosis Type 2 diabetes mellitus with hyperglycemia, with long-term current use of insulin (CMS/HCC)- Primary Primary hypertension Unspecified essential hypertension Stage 3b chronic kidney disease (CMS/[facility]) documented in this encounter Additional Health Concerns Assessment Noted Time PHQ-9 Depression Total Score: 0 09/01/19 25 1:18 PM EST documented as of this encounter Care Teams Service Delivery Analyst Relationship Specialty Start Date End Date Amanda Watkins MD [address] [place] [address] PCP - General Family Medicine 04/07/19 Hiro Ram FNP [address] [place] [address] Nurse Practitioner Family Medicine 07/06/23 [place] [facility] 08/10/24 documented as of this encounter
--- OUTSIDE RECORDS SUMMARY | 2024-10-06 12:52 | XMS_ITS | Encounter Summary ---
Author Organization [employer] Address [address] [place] [address] Care Team Providers Care Blood Bank Supervisor Name Role Phone Amanda Watkins MD Primary Care Provide r Hiro Ram Unavailable Unavailable Reason for Visit * Reason Comments Med Refill Encounter Details Date Type Department Care Team (Late st Contact Info) Description 10/04/2024 Refill [facility] [address] [place] [address] Amanda Watkins MD [address] [place] [address] Epigastric pain; Type 2 diabetes mellitus with other specified complication, with long-term current use of insulin ([facility]) Social History Tobacco Use Types [...] Description 10/24/2024 2:00 PM EDT Office Visit [facility] [address] [place] [address] Emiliano, Elisa, OD [address] [place] [address] 11/28/2024 1:45 PM EDT Office Visit [facility] [address] [place] [address] Amanda Watkins MD [address] [place] [address] documented as of this encounter Visit Diagnoses Diagnosis Epigastric pain Abdominal pain, epigastric Type 2 diabetes mellitus with other specified complication, with long-term current use of insulin ([facility]) documented in this encounter Additional Health Concerns Assessment Noted Time PHQ-9 Depression Total Score: 0 09/01/19 25 1:18 PM EST documented as of this encounter Care Teams Blood Bank Supervisor Relationship Specialty Start Date End Date Amanda Watkins MD [address] [place] [address] PCP - General Family Medicine 04/07/19 Hiro Ram FNP [address] [place] [address] [place] [address] Nurse Practitioner Family Medicine 07/06/23 Ja [facility] 08/10/24 documented as of this encounter
--- OUTSIDE RECORDS SUMMARY | 2024-10-06 12:52 | XMS_ITS | Encounter Summary ---
Author Organization [employer] Address [address] [place] [address] Care Team Providers Care Hospital Coordinator Name Role Phone Amanda Watkins MD Primary Care Provide r Hiro Ram Unavailable Unavailable Reason for Visit * Reason Comments Med Refill Encounter Details Date Type Department Care Team (Late st Contact Info) Description 09/26/2024 Refill [facility] [address] [place] [address] Amanda Watkins MD [address] [place] [address] Chronic bilateral low back pain with bilateral [...] Description 10/24/2024 2:00 PM EDT Office Visit [facility] [address] [place] [address] Emiliano, Elisa, OD [address] [place] [address] 11/28/2024 1:45 PM EDT Office Visit [facility] [address] [place] [address] Amanda Watkins MD [address] [place], [place] [phone] documented as of this encounter Visit Diagnoses Diagnosis Chronic bilateral low back pain with bilateral sciatica documented in this encounter Additional Health Concerns Assessment Noted Time PHQ-9 Depression Total Score: 0 09/01/19 25 1:18 PM EST documented as of this encounter Care Teams Hospital Coordinator Relationship Specialty Start Date End Date Amanda Watkins MD [address] [place], [place] [id number] PCP - General Family Medicine 04/07/19 Hiro Ram FNP [address] [facility] [place] [address] Nurse Practitioner Family Medicine 07/06/23 Ja [facility] 08/10/24 documented as of this encounter
--- OUTSIDE RECORDS SUMMARY | 2024-10-06 12:53 | XMS_ITS | Encounter Summary ---
Author Organization [employer] Address [address] [place] [address] Care Team Providers Care Fermentation Scientist Name Role Phone Amanda Watkins MD Primary Care Provide r Hiro Ram Unavailable Unavailable Reason for Visit * Reason Onset Date Comments Durable Medical Equipment 05/11/2024 Encounter Details Date Type Department Care Team (Late st Contact Info) Description 05/11/2024 Telephone [facility] [address] [place] [address] Amanda Watkins MD [address] [place] [address] Durable Medical Equipment Social History Tobacco Use [...] [facility] [address] [place] [address] Elisa Cummings, OD [address] [place] [address] 11/28/2024 1:45 PM EDT Office Visit [facility] [address] [place] [address] Amanda Watkins MD [address] [place] [address] documented as of this encounter Visit Diagnoses Not on filedocumented in this encounter Additional Health Concerns Assessment Noted Time PHQ-9 Depression Total Score: 10 024 3:23 PM EDT documented as of this encounter Care Teams Fermentation Scientist Relationship Specialty Start Date End Date Amanda Watkins MD [address] [place] [address] PCP - General Family Medicine 04/07/19 Hiro Ram FNP [address] [place] [address] Nurse Practitioner Family Medicine 07/06/23 [facility] 07/03/22 08/16/24 Ja [facility] 08/10/24 documented as of this encounter
--- OUTSIDE RECORDS SUMMARY | 2024-10-06 12:53 | XMS_ITS | Clinical Summary ---
Author Organization [employer] Address [address] [place] [address] Care Team Providers Care Applications Programmer Analyst Name Role Phone Amanda Watkins MD [...] 15 MINUTES 100 tablet 1 023 Active glucose blood (FreeStyle Precision Enrique Test) test stripIndications: Type 2 diabetes mellitus with other specified complication, with long-term current use of insulin ([facility]) Use to test blood sugar 3 times daily 100 each 12 024 2024 Active Alcohol Swabs (Alcohol Prep) 70 % pads USE FOUR TIMES DAILY DIRECTED 100 each 11 Active aspirin (Aspirin Low Dose) 81 MG EC tabletIndications :Atrial fibrillation, unspecified type (CMS/HCC) Take 1 tablet (81 mg) by mouth at bedtime. 90 tablet 3 024 Active hydrOXYzine HCl (Atarax) 25 MG tablet Take 1 tablet (25 mg) by mouth every 8 (eight) hours if needed for anxiety. 120 tablet 2 024 Active traZODone (Desyrel) 150 MG tabletIndications :Recurrent major depressive episodes, mild (CMS/HCC) Take 1 tablet (150 mg) by mouth at bedtime. 90 tablet 2 024 Active atorvastatin (Lipitor) 80 MG tablet TAKE 1 TABLET BY MOUTH EVERY EVENING 90 tablet 1 Active DULoxetine (Cymbalta) [address] capsule Take 1 capsule by mouth Once per day. Active Oyster Shell Calcium 500 MG tablet TAKE 1 TABLET BY MOUTH TWICE DAILY IN THE MORNING AND IN THE EVENING 180 tablet 1 024 Active Eliquis 5 MG tabletIndications :Atrial fibrillation, unspecified type (CMS/HCC) TAKE 1 TABLET BY MOUTH TWICE DAILY IN THE MORNING AND IN THE EVENING 60 tablet 2 Active FREESTYLE LITE test stripIndications: Type 2 diabetes mellitus with hyperglycemia, with long-term current use of insulin ([facility]) Use to test blood sugar 3 times daily 100 each 12 024 2024 Active Lancets miscIndications:T ype 2 diabetes mellitus with hyperglycemia, with long-term current use of insulin ([facility]) Use to test blood sugar 3 times daily 100 each 2 Active Blood Glucose Monitoring Suppl (FreeStyle Mcdonald Lite) w/Device kitIndications:Ty pe 2 diabetes mellitus with hyperglycemia, with long-term current use of insulin ([facility]) Use to test blood sugar 3 times daily 1 kit Active Continuous Glucose Sensor (FreeStyle Mickey 2 Sensor) miscIndications:T ype 2 diabetes mellitus with other specified complication, with long-term current use of insulin ([facility]) Apply 1 sensor every 14 days 2 each 2 024 Active amLODIPine (Norvasc) 5 MG tablet Take 1 tablet (5 mg) by mouth Once per day. 30 tablet 3 025 Active torsemide (Demadex) 20 MG tablet Take 1 tablet (20 mg) by mouth Once per day. 30 tablet 3 025 Active Nyamyc [id number] UNIT/GM powder Apply 1 Application. topically 2 times daily. 024 Active Continuous Glucose Lidar Technician (FreeStyle Mickey 2 Walker) deviceIndications :Type 2 diabetes mellitus with other specified complication, with long-term current use of insulin ([facility]) Scan sensor every 8 hours 1 each 025 Active calamine-zinc oxide 8-8 % lotion APPLY TO THE AFFECTED AREA(S) TOPICALLY TWICE DAILY NEEDED FOR ITCHING Active loratadine (Claritin) 10 MG tablet Take 1 tablet by mouth Once per day. Active melatonin 3 MG tablet Take 1 tablet by mouth at bedtime. 025 Active Lokelma 10 g packet DISSOLVE 1 PACKET DIRECTED AND TAKE BY MOUTH EVERY WEDNESDAY, WEDNESDAY, AND WEDNESDAY Active acetaminophen (Acetaminophen 8 Hour) 650 MG ER tablet Take 650 mg by mouth every 8 (eight) hours if needed for mild pain. Do not crush, chew, or split. Active Dulaglutide (Trulicity) 0.75 MG/0.5ML solution auto-injectorIndi cations:Type 2 diabetes mellitus with hyperglycemia, with long-term current use of insulin ([facility]) Inject 0.75 mg under the skin 1 (one) time per week. 2 mL 2 025 Active Ketotifen Fumarate 0.035 % solutionIndicatio ns:Allergic conjunctivitis of both eyes Administer 1 drop into affected eye(s) every 12 (twelve) hours if needed (if needed). 10 mL 1 025 Active levothyroxine (Synthroid, Levoxyl) 75 MCG tabletIndications :Acquired hypothyroidism Take 1 tablet (75 mcg) by mouth in the morning. 30 tablet 2 025 Active Lantus 100 UNIT/ML injectionIndicati ons:Type 2 diabetes mellitus with other specified complication ([facility]) INJECT 60 UNITS SUBCUTANEOUSLY EVERY MORNING 10 mL Active omeprazole (PriLOSEC) [address] capsuleIndication s:Epigastric pain TAKE 1 CAPSULE BY MOUTH EVERY MORNING BEFORE BREAKFAST. DO NOT BREAK, CRUSH, DISSOLVE OR CHEW 30 capsule 11 Active gabapentin (Neurontin) 100 MG capsule TAKE 1 CAPSULE BY MOUTH AT NOON, EVENING, AND BEDTIME 90 capsule 3 Active insulin syringe-needle U-100 (UltiCare Insulin Syringe) 31G X 5/16 1 mL miscIndications:T ype 2 diabetes mellitus with other specified complication, with long-term current use of insulin ([facility]) USE DAILY WITH INSULIN 100 each Active insulin syringe-needle U-100 (UltiCare Insulin Syringe) 31G X 5/16 1 mL miscIndications:T ype 2 diabetes mellitus with other specified complication, with long-term current use of insulin ([facility]) USE DAILY WITH INSULIN 100 each 024 2024 Discontinued omeprazole (PriLOSEC) [address] capsuleIndication s:Epigastric pain Take 1 capsule (40 mg) by mouth before breakfast. Do not crush or chew. 30 capsule 024 2024 Discontinued gabapentin (Neurontin) 100 MG capsule Take 1 capsule (100 mg) by mouth 3 times daily. 90 capsule 3 024 2024 Discontinued oxyCODONE-acetami nophen (Percocet) 5-325 MG tabletIndications :Chronic bilateral low back pain with bilateral sciatica TAKE 1 TABLET BY MOUTH EVERY 6 HOURS NEEDED FOR SEVERE PAIN FOR UP TO 28 DAYS 112 tablet 024 2024 Discontinued insulin glargine (Lantus) 100 UNIT/ML injection Inject 50 Units under the skin at bedtime. 2024 Discontinued lactulose (Chronulac) 10 GM/15ML solutionIndicatio ns:Other constipation Take 15 mL (10 g) by mouth Once per day for 10 days. 150 mL 025 2024 oxyCODONE-acetami nophen (Percocet) 5-325 MG tabletIndications :Chronic bilateral low back pain with bilateral sciatica TAKE 1 TABLET BY MOUTH EVERY 6 HOURS NEEDED FOR SEVERE PAIN 28 tablet 025 2024 Active Problems Problem Noted Date Diagnosed Date Type 2 diabetes mellitus wit h hyperglycemia, with long-term current use of insulin 09/01/2024 Assessment & Plan (09/14/2024 7:45 PM EST): Diabetes is: not controlled - Lab Results Component Value Date HGBA1C 11.4 (H) 09/01/2024 HGBA1C 11.6 (A) 09/01/2024 HGBA1C 7.2 (A) 03/06/2024 - Lab Results Component Value Date MICROALBUR 66.2 08/04/2021 CREATININE 1.58 (H) 09/01/2024 -Changes: I added today Glory, I refer patient to pharmacy CD[facility], CGM already prescribed patient will be instructed how to use at her CDTM appointment - Diabetic eye exam:up to date - Diabetic foot exam:up to date - Continue lifestyle modifications - Continue current medications - Follow up: 3 months Chronic diastolic congestive heart failure 09/01 Assessment & Plan (09/14/2024 6:46 PM EST): Facility Designer referral done today I advised not to miss appointment with cardiology Allergic conjunctivitis of both eyes 09/01/2024 Other constipation 09/01/2024 Assessment & Plan (09/14/2024 6:47 PM EST): I prescribed for her today lactulose, patient to report back if medication helped Mixed stress and urge urinary incontinence 05/19 Stage 3b chronic kidney disease 05/02/2024 Arthritis 04/24/2024 Bronchitis 04/24/2024 Obesity 04/24/2024 Atrial fibrillation 04/08/2024 Congestive heart failure 04/08/2024 Gastroesophageal reflux disease 04/08/2024 Opioid dependence 04/08/2024 Retention of urine 04/08/2024 Hypothyroidism 04/08/2024 Assessment & Plan (09/14/2024 6:48 PM EST): TSH will be rechecked for further medication adjustment Depressive disorder 04/08/2024 Hypertensive disorder 04/08/2024 Asthma [...] fib Osteoporosis 03/01/2023 Essential (primary) hypertension 03/01/2023 Assessment & Plan (09/14/2024 7:41 PM EST): Today patient did not took her medications, I advised to take her medications every day I advised low-sodium diet Facility Designer referral done today I advised to monitor blood pressure at home log at an report back if blood pressure is persistently above 140/90 Anxiety attack 11/18/2022 Assessment & Plan (11/18/2022 [...] retiring, patient will be transferred to new [facility] psychiatric provider. Patient is aware that appointments will be via televisit. Any issues or concerns contact [facility]. All her questions were answered and I [...] the plan. Hypertension 03/24/2013 Assessment & Plan (09/14/2024 6:47 PM EST): Blood pressure elevated today she did not took her medications, I advised to take her medications every day without missing any dose I advise low-sodium diet I advised weight reduction Facility Designer referral done Assessment & Plan (12/06/2023 2:12 PM EDT): [...] and excersise -patient will be refer to air saw operator - Continue current medications, I can [...] Encounters Date Type Department Care Team Description 10/04/2024 Refill [facility] [address] [place] [address] Ann Kulkarni, 10/04/2024 Refill [facility] [address] [place] [address] Amanda Watkins MD Epigastric pain; Type 2 diabetes mellitus with other specified complication, with long-term current use of insulin ([facility]) 09/27/2024 Refill [facility] [address] [place] [address] Ann Kulkarni, 09/26/2024 Refill [facility] [address] [place], [place] [phone] Amanda Watkins MD Chronic bilateral low back pain with bilateral sciatica 09/24/[address] [address] Amanda Watkins MD Type 2 diabetes mellitus with other specified complication ([facility]) 09/22/[address] [address] Amanda Watkins MD Medication Question 09/14/2024 11:00 AM EST Telemedicine [address] [address] Vilma Gilbert PharmD Type 2 diabetes mellitus with hyperglycemia, with long-term current use of insulin ([facility]) (Primary Dx); Primary hypertension; Stage 3b chronic kidney disease ([facility]/HCC) 09/07/[address] [address] Kayley Alanis RN PARISH VISITOR Renewal cancelled at check in time 09/07/[address] nutrition appt request 09/06/2024 Telephone [facility] [address] [place], [place] [phone] Waldemar Vaughn MD Results 09/06/2024 Orders Only [facility] [address] [place], [place] [phone] Waldemar Vaughn MD 09/04/[address] [address] Temitope Natarajan RN NTTS 09/01/2024 1:00 PM EST Office Visit [address] [address] Amanda Watkins MD Type 2 diabetes mellitus with hyperglycemia, with long-term current use of insulin ([facility]) (Primary Dx); Chronic diastolic congestive heart failure ([facility]/HCC); Acquired hypothyroidism; Allergic conjunctivitis of both eyes; Other constipation; Essential (primary) hypertension 09/01/2024 Telephone [facility] [address] [place], [place] [phone] Phalen, Miguel, [employer] Security Researcher Documentation 09/01/2024 Orders Only [facility] [place] [address] Amanda Watkins MD 09/01/2024 Travel 08/31/2024 Telephone [facility] [address] [facility] [place] [address] Amanda Watkins MD Durable Medical Equipment (L&C Form: Briefs and Underpads) 08/31/2024 Telephone [facility] [place] [address] Kayley Alanis, RN PARISH VISITOR Forms 08/25/2024 Telephone [facility] [place] [address] Sia Leon PharmD 08/22/2024 Orders Only [facility] [place] [address] Amanda Watkins MD 08/22/2024 Telephone [facility] [place] [address] Amanda Watkins MD CRITICAL RESULT 08/17/2024 Telephone [facility] [place] [address] Amanda Watkins MD Care Coordination (Home Care Agency ) 08/16/2024 Telephone [facility] [place] [address] Temitope Natarajan, RN HDF appointment 08/16/2024 Telephone [facility] [place] [address] Amanda Watkins MD No Show 08/16/2024 Patient Outreach [facility] [place] [address] Amanda Watkins MD Transition Of Care (Tcm) (HDF- scheduled and SDOH screening completed on 10/15/2023) 08/16/2024 Telephone [facility] [place] [address] Amanda Watkins MD Hospital Follow-up 08/15/2024 Refill [facility] [place] [address] Temitope Natarajan, PHILLIP Type 2 diabetes mellitus with other specified complication, with long-term current use of insulin (CMS/HCC) 08/14/[address] [address] Lacey Quesada MD 08/10/2024 10:00 AM EST Telemedicine [address] [address] Vilma Gilbert, PharmD Type 2 diabetes mellitus with hyperglycemia, with long-term current use of insulin (CMS/HCC) (Primary Dx); Essential (primary) hypertension; Stage 3b chronic kidney disease (CMS/HCC) 08/10/2024 Patient Outreach [address] [address] Amanda Watkins MD Pre-visit Planning ((Unable to reach for PVP screening, LVM)) 08/10/2024 Refill [facility] [address] [place] [phone] Vilma Gilbert, PharmEmily 08/08/2024 Refill [facility] [address] [place] [address] Amanda Watkins MD Chronic bilateral low back pain with bilateral sciatica 08/04/[address] [address] Amanda Watkins MD Call Back Request 08/03/[address] [address] Arcelia Crocker MA Durable Medical Equipment 08/03/[address] [address] Heather Cain, appeals board referee (CGM approval) 08/02/2024 Orders Only GENERIC EXTERNAL DATA DEPARTMENT Provider, Generic External Data 07/31/[address] [address] Kayley Alanis RN 07/28/2024 Travel 07/28/[address] [address] Kayley Alanis, PHILLIP Recommend Tele Tier 2 07/27/2024 Telephone [facility] [address] [facility] [place] [address] Arcelia Crocker MA Durable Medical Equipment 07/26/2024 Telephone [facility] [address] [facility] [address] Amanda Watkins MD Durable Medical Equipment 07/25/2024 Telephone [facility] [address] [facility] [place] [address] Amanda Watkins MD order; Durable Medical Equipment 07/24/2024 Telephone [facility] [address] [facility] [place] [address] Wilfrido Durbin MA DME from HC&D 07/23/2024 Refill [facility] [address] [facility] [place] [address] Amanda Watkins MD Acquired hypothyroidism 07/21/2024 Telephone [facility] [address] [facility] [place] [address] Arcelia Crocker MA Durable Medical Equipment 07/13/2024 Telephone [facility] [address] [facility] [place] [address] Ann Kulkarni, DO No Show 07/12/2024 Telephone [facility] [address] [facility] [place] [address] Arcelia Crocker MA Durable Medical Equipment 07/10/2024 Telephone [facility] [address] [place] [address] Amanda Watkins MD Nurse Triage 07/10/2024 Refill [facility] [address] [facility] [place] [address] Amanda Watkins MD Type 2 diabetes mellitus with other specified complication, with long-term current use of insulin ([facility]) 07/06/2024 Orders Only GENERIC EXTERNAL DATA DEPARTMENT Provider, Generic External Data from Last 3 Months Immunizations Name Administration [...] your housing situation today? I have ramiro troy 05/24/[address] you li [...] Office Visit [facility] [address] [place] [address] Emiliano, Elisa, OD [address] [place] [address] 11/28/2024 1:45 PM EDT Office Visit [facility] [address] [place] [address] Amanda Watkins MD [address] [place] [address] Health Maintenance Due Date Last Done Comments CT Colonography 1950 Colonoscopy 1950 Colorectal Cancer Screening 1950 FIT DNA/Cologuard 1950 FIT 1950 FOBT 1950 Sigmoidoscopy 1950 Diabetes: Foot Exam 1959 Eye Exam 1959 Alcohol/Substance Use Screening 1961 Hepatitis C Screening 1967 DTaP/Tdap/Td Vaccines (1 - Tdap) 03/13/2006 03/12/2006 Zoster Vaccines (2 of 3) 07/26/2015 05/31/2015 Diabetes: Urine Protein Screening 08/04/2022 08/04/2021 COVID-19 Vaccine ( - season) 2024 07/24/2021, 12/11/2020, 10/03/2020 RSV Patients and Patients Aged 60 years or older (1 - 1-dose 75+ series) 2024 SDOH Screening 10/14/2024 10/15/2023 Diabetes: Hemoglobin A1C 11/30/2024 025, 09/01/2024, 03/06/2024, Additional history exists Depression Screening 09/01/2025 09/01/2024, 09/01/19 25 Lipid Panel 09/01/2025 09/01/2024, 08/04/2021 Tobacco Screening 09/01/2025 09/01/2024 Hepatitis B Vaccines Completed 06/07/2007, 11/01/2006, 03/12/2006 Pneumococcal Vaccine: 50+ Years Completed 12/06/2023, 07/16/2016, 02/17/2013, Additional history [...] hyperglycemia, with long-term current use of insulin ([facility]) POCT GLYCATED HEMOGLOBIN, TOTAL Routine 09/01/2024 1:24 PM EST Type 2 diabetes mellitus with hyperglycemia, with long-term current use of insulin ([facility]) POCT GLUCOSE Routine 09/01/2024 1:23 PM EST Type 2 diabetes mellitus with hyperglycemia, with long-term current use of insulin ([facility]) GLUCOSE, WHOLE BLOOD Routine 08/22/2024 [...] METABOLIC PANEL Routine 07/06/2024 2:14 AM EST ALBUMIN, RANDOM URINE W/CREATININE Routine 08/04/2021 10:15 AM EST from Last 3 Months or Most Recently Relevant to Health Maintenance Results * (ABNORMAL) TSH W/Reflex to FT4 (09/01/2024 2:09 PM EST) TSH reflex Free T4 30.54(H) 0.32 - 4.0 uIU/mL [facility] Blood Venous blood specimen / Unknown 09/01/2024 2:09 PM EST 09/01/2024 4:09 PM EST us Amanda Myers MD LAB BLOOD ORDERABLES Final Result Performing Organization Address [facility]/ZIP Co de Phone Number [facility] [address] [place] [phone] * T4, Free (09/01/2024 2:09 PM EST) Free T4 (Free Thyroxine) 0.94 0.71 - 1.85 ng/dL [facility] 09/01/2024 2:09 PM EST 09/01/2024 4:09 PM EST Amanda Myers MD LAB BLOOD ORDERABLES Final Result [facility] [address] [place] [phone] * (ABNORMAL) Hemoglobin A1c (09/01/2024 2:09 PM EST) Hemoglobin A1c 11.4(H) <6.0 % [facility] Comment:Hemoglobin A1C Refer ence Range Adults: 4.8 - 6.0 % Non diabetic: < 6.0 % Goal: < 7.0 %Additional Action Suggested: > 8.0 %Note: Hemoglobin A1c results are invalid for patients with abnormal amounts of HbF. Blood transfusions may impact the HbA1c concentration in the patient sample. Estimated Average Glucose 280 mg/dL [facility] Comment:eAG = Estimated ave rage glucose which is %A1C expressed asaverage glucose, using the formula of the G0I-LqmgoexSowqvnm Glucose study (ADAG), Diabetes Care, Vol.31,#8,Mar. 2007 09/01/2024 2:09 PM EST 09/01/2024 4:09 PM EST us Amanda Myers MD LAB BLOOD ORDERABLES Final Result Performing Organization Address [facility] de Phone Number [facility] [address] [place] [phone] * (ABNORMAL) Lipid Panel, Standard (09/01/2024 2:09 PM EST) Triglycerides 241(H) <150 mg/dL [facility] Comment:Desirable Triglyceri de: less than 150 mg/dLBorderline High Triglyceride 150-199 mg/dLHigh Triglyceride: 200-499 mg/dLVery High Triglyceride: greater than or equal to 5OO mg/dL Cholesterol 107 <200 mg/dL [facility] Comment:Desirable Cholestero l: less than 200 mg/dLBorderline High Cholesterol: 200-239 mg/dLHigh Cholesterol: greater than 239 mg/dL LDL Cholesterol Calculated 34 <100 mg/dL [facility] Comment:Desirable LDL: less than 100 mg/dLNear Optimal/Above Optimal LDL: 110- 129 mg/dLBorderline High LDL: 130-159 mg/dLHigh LDL: 160-189 mg/dLVery High LDL: greater than or equal to 190 mg/dL HDL Cholesterol 25(L) >40 mg/dL [facility] Comment:Desirable HDL: great er than 40 mg/dL Note: This HDL assay may give artificially low results in patients with liver disease. 09/01/2024 2:09 PM EST 09/01/2024 4:09 PM EST us Amanda Myers MD LAB BLOOD ORDERABLES Final Result [facility] [address] [place], [place] [phone] * (ABNORMAL) Basic Metabolic Panel (09/01/2024 2:09 PM EST) Only the most recent of3 resultswithin the time period is included. Sodium 138 135 - 145 mmol/L [facility] Potassium 4.7 3.3 - 5.1 mmol/L [facility] Comment:Slight Hemolysis.Int erpret result with caution. Chloride 96 96 - 108 mmol/L [facility] Carbon Dioxide 33(H) 22 - 29 mmol/L [facility] Anion Gap 14 12 - 20 [facility] Urea Nitrogen (BUN) 32(H) 9 - 16 mg/dL [facility] Creatinine, Serum 1.58(H) 0.5 - 1.4 mg/dL [facility] Estimated Glomerular Filt Rate 32 [facility] Comment:Chronic Kidney Disea se: Estimated GFR < 60 mL/min/1.70o3Eqewvp Kidney Disease: Estimated GFR < 15 mL/min/1.73m2 Glucose 434(HH) 60 - 115 mg/dL [facility] Comment:Critical value for t est(GLU): Results called to and readback by: MIGUEL MOY Person calling: ZULEMA Date:09/01/24 Time: 1914 Calcium 9.0 8.4 - 10.2 mg/dL [facility] Blood Venous blood specimen / Unknown 09/01/2024 2:09 PM EST 09/01/2024 4:09 PM EST Amanda Myers MD LAB BLOOD ORDERABLES Final Result Performing Organization Address City/[facility]/ZIP Co de Phone Number [facility] [address] [place] [phone] * (ABNORMAL) POCT HGB A1C (09/01/2024 [...] Whole Blood 339(H) 60 - 115 mg/dL [facility] Comment:METER #: [id number] 08/22/2024 6:45 PM EST 08/22/2024 6:48 PM EST Generic External Data Provider LAB BLOOD ORDERAB LES Final Result [facility] [address] [place] [phone] * Lactic Acid (08/22/2024 6:33 PM EST) Lactic Acid 1.9 0.5 - 2.0 mmol/L [facility] 08/22/2024 6:33 PM EST 08/22/2024 6:37 PM EST us Generic External Data Provider LAB BLOOD ORDERAB LES Final Result [facility] [address] [place] [phone] * XR Chest 2 Views (08/22/2024 5:51 PM EST) Anatomical Region Laterality Modality Chest Radiographic Franca ging 08/22/2024 5:51 PM EST Narrative 08/22/2024 5:53 PM EST ? [facility] ?[address] ?[place] [address] ?XRay Report ? Signed ? Patient: Mary Lou Godwin ?MR#: [id number] ?? [id number] ? : 1950 ?Acct:[id number] ? Age/Sex: 74 / F ?ADM Date: 08/22/24 ? Loc: HO.ED ? Attending Dr: ? Ordering Physician: Joel Beckre DO ?? Date of Service: 08/22/24 ?? Procedure(s): XR chest 2V ?? Accession Number(s): [id number] ? cc: Amanda Watkins MD; Joel Becker [...] 175 ? DD/ 175 ? TD/TT: 08/22/24 1751 ? Absorption Operator: ? Procedure Note Donotbalbirinterpreter, Image - 08/22/[address] [address] XRay Report Signed Patient: Mary Lou Godwin ZMR#: [id number] : 1950cct:[id number] Age/Sex: 74 / FADM Date: 08/22/24 Loc: HO.ED Attending Dr: Ordering Physician: Joel Becker DO Date of Service: 08/22/24 Procedure(s): XR chest 2V Accession Number(s): [id number] cc: Amanda Watkins MD; Joel Becker DO [...] in OV> 08/22/241751 DD/ 50 TD/TT: 08/22/241750 Absorption Operator: [facility] External Provider IMG XR PROCEDURES Final Result * (ABNORMAL) Drug Monitoring, Panel 1, Screen, Urine (08/02/2024 3:28 PM EST) Opiate Screen Urine Not Detected Not Detect [facility] Comment:Opiate cut-off is 30 0 ng/mL.Positive results are unconfirmed and should not be used fornon-medical purposes. Barbiturates, Urine Not Detected Not Detect [facility] Comment:Barbiturate cut-off is 200 ng/mL.Positive results are unconfirmed and should not be used fornon-medical purposes. Phencyclidine Screen Urine Not Detected Not Detect [facility] Comment:Phencyclidine cut-of f is 25 ng/mL.Positive results are unconfirmed and should not be used fornon-medical purposes. Amphetamine Screen Urine Not Detected Not Detect [facility] Comment:Amphetamine cut-off is 1000 ng/mL.Positive results are unconfirmed and should not be used fornon-medical purposes. Benzodiazepines Screen Urine Not Detected Not Detect [facility] Comment:Benzodiazepine cut-o ff is 200 ng/mL.Positive results are unconfirmed and should not be used fornon-medical purposes. Cocaine Screen Urine Not Detected Not Detect [facility] Comment:Cocaine cut-off is 3 00 ng/mL.Positive results are unconfirmed and should not be used fornon-medical purposes. Cannabinoid Screen Urine Not Detected Not Detect [facility] Comment:Cannabinoid cut-off is 50 ng/mL.Positive results are unconfirmed and should not be used fornon-medical purposes. Methadone Screen, Urine Not Detected Not Detect ng/mL [facility] Comment:Methadone cut-off is 300 ng/mL.Positive results are unconfirmed and should not be used fornon-medical purposes. FENTANYL URINE Not Detected Not Detect [facility] Comment:Fentanyl cut-off is 1 ng/mL.Positive results are unconfirmed and should not be used fornon-medical purposes. Oxycodone Urine Screen Positive(A) Not Detect ng/mL [facility] Comment:Oxycodone cut-off is 100 ng/mL.Positive results are unconfirmed and should not be used fornon-medical purposes. Buprenorphine Screen Not Detected Not Detect ng/mL [facility] Comment:Buprenorphine cut-of f is 5 ng/mL.Positive results are unconfirmed and should not be used fornon-medical purposes. 08/02/2024 3:28 PM EST 08/02/2024 3:31 PM EST us Generic External Data Provider LAB URINE ORDERAB LES Final Result Performing Organization Address [facility] Co de Phone Number [facility] [address] [place] [phone] * (ABNORMAL) VENOUS BLOOD GAS (08/02/2024 3:24 PM EST) VBG pH 7.37 7.32 - 7.43 [facility] Comment:METER #: [id number] additional_comment: Cbzaluckj VBG PCO2 57 mmHg [facility] Comment:METER #: [id number] additional_comment: Cbzaluckj VBG PO2 56 mmHg [facility] Comment:METER #: [id number] additional_comment: Cbzaluckj VBG Base Excess 7.4 mmol/L [facility] Comment:METER #: [id number] additional_comment: Cbzaluckj VBG HCO3 33(H) 22 - 26 mmol/L [facility] Comment:METER #: [id number] additional_comment: Cbzaluckj O2 Sat, Samuel 80.0 % [facility] Comment:METER #: [id number] additional_comment: Cbzaluckj 08/02/2024 3:24 PM EST 08/02/2024 3:28 PM EST us Generic External Data Provider LAB BLOOD ORDERAB LES Final Result Performing Organization Address [facility]/ZIP Co de Phone Number [facility] [address] [place] [phone] * Hold Green Gel (08/02/2024 3:19 PM EST) Hold Green Gel See Note [facility] Comment:Specimen held untest ed for 24 hours; Call to requestChemistry testing. 08/02/2024 3:19 PM EST 08/02/2024 3:23 PM EST us Generic External Data Provider HISTORICAL/NON OR DERABLE LABS Final Result Performing Organization Address [facility]/ZIP Co de Phone Number [facility] [address] [place] [address] [phone] * Ethanol (08/02/2024 3:19 PM EST) [facility] ETHANOL (MG/DL) IN SER/PLAS <10 mg/dL [facility] Comment:Serum/plasma ethanol results are to be used formedical/treatment purposes only. 08/02/2024 3:19 PM EST 08/02/2024 3:22 PM EST Generic External Data Provider LAB BLOOD ORDERAB LES Final Result Performing Organization Address [facility] Co de Phone Number [facility] [address] [place] [address] [phone] * (ABNORMAL) CBC auto differential (08/02/2024 3:19 PM EST) [facility] White Blood Count 7.0 4.8 - 10.8 X10*3/uL [facility] Red Blood Count 3.49(L) 4.20 - 5.50 X10*6/uL [facility] Hemoglobin 7.4(L) 12.0 - 16.0 g/dl [facility] Hematocrit 25.3(L) 37.0 - 47.0 % [facility] Mean Corpuscular Volume 72.5(L) 80.0 - 98.0 fL [facility] Mean Corpuscular Hemoglobin 21.2(L) 27.0 - 33.0 pg [facility] Mean Corpuscular HGB Conc 29.2(L) 31.0 - 35.0 g/dl [facility] Red Cell Distribution Width 17.9(H) 11.0 - 16.0 % [facility] Platelet Count 367 160 - 400 X10*3/uL [facility] Mean Platelet Volume 10.5 9.4 - 12.3 fL [facility] Neutrophils Percent Auto 68.7 45 - 73 % [facility] Imm Gran Pct Auto 1.7(H) 0.0 - 0.4 % [facility] Lymphocytes Percent Auto 17.8(L) 20 - 40 % [facility] Monocytes Percent Auto 6.2 2 - 11 % [facility] Eosinophils Percent Auto 4.6(H) 0 - 4 % [facility] Basophils Percent Auto 1.0 0 - 2 % [facility] NRBC Pct Auto 0.9(H) 0.0 - 0.2 /100WBC [facility] Neutrophils Absolute Auto 4.8 2.0 - 8.3 x10*3/uL [facility] Imm Gran Abs Auto 0.12(H) 0.00 - 0.03 X10*3/uL [facility] Lymphocytes Absolute Auto 1.2 1.2 - 4.9 X10*3/uL [facility] Monocytes Absolute Auto 0.4 0.1 - 1.2 X10*3/uL [facility] Eosinophils Absolute Auto 0.3 0.0 - 0.4 X10*3/uL [facility] Basophils Absolute Auto 0.1 0.0 - 0.2 X10*3/uL [facility] NRBC Abs Auto 0.060(H) 0.0 - 0.012 X10*3/uL [facility] 08/02/2024 3:19 PM EST 08/02/2024 3:22 PM EST us Generic External Data Provider LAB BLOOD ORDERAB LES Final Result [facility] [address] [place] [phone] * (ABNORMAL) Prothrombin Time-INR (08/02/2024 3:19 PM EST) Prothrombin Time 19.3(H) 10.9 - 12.4 SEC [facility] INTERNATIONAL NORM RATIO 1.7(H) 0.9 - 1.1 [facility] Comment:INTERNATIONAL NORMAL IZED RATIO [...] ORDERAB LES Final Result Performing Organization Address [facility] Co de Phone Number [facility] [address] [place] [phone] * Beta-Hydroxybutyrate (07/06/2024 2:14 AM EST) [facility] Beta-Hydroxybut yrate 0.09 0.02 - 0.27 mmol/L [facility] 07/06/2024 2:14 AM EST 07/06/2024 2:16 AM EST M2G External Data Provider LAB BLOOD ORDERAB LES Final Result Performing Organization Address [facility] Phone Number [facility] [address] [place] [phone] * (ABNORMAL) Comprehensive Metabolic Panel (07/06/2024 2:14 AM EST) Pathologist [facility] Sodium 134(L) 135 - 145 mmol/L [facility] Potassium 5.0 3.3 - 5.1 mmol/L [facility] Comment:Slight Hemolysis.Int erpret result with caution. Chloride 92(L) 96 - 108 mmol/L [facility] Carbon Dioxide 32(H) 22 - 29 mmol/L [facility] Anion Gap 15 12 - 20 [facility] Urea Nitrogen (BUN) 41(H) 9 - 16 mg/dL [facility] Creatinine, Serum 2.41(H) 0.5 - 1.4 mg/dL [facility] Creatinine Clr Calc Pharmacy 23.2 [facility] Comment:Provided height and weight: 160.02 cm,103.7 kg.eGFR (calculated from the MDRD study equation) and eCrCl(calculated from the Cockcroft-Gault equation) are based ondifferent parameters and may not yield comparable results.If eCrCl result is absurd, please check patient'sheight/weight. Estimated Glomerular Filt Rate 20 [facility] Comment:Chronic Kidney Disea se: Estimated GFR < 60 mL/min/1.02c4Kirgaa Kidney Disease: Estimated GFR < 15 mL/min/1.73m2 Glucose 451(HH) 60 - 115 mg/dL [facility] Comment:Critical value for t est(s):GLUC Results called to and readback by: GERRY Person calling: VYASRID Date: [id number] Calcium 8.2(L) 8.4 - 10.2 mg/dL [facility] Bilirubin, Total 0.3 0.0 - 1.0 mg/dL [facility] Aspartate Amino Transferase 29 5 - 31 U/L [facility] Comment:Slight Hemolysis.Int erpret result with caution. Alanine Aminotransferase 11 0 - 31 U/L [facility] Total Protein 6.3(L) 6.5 - 8.0 g/dL [facility] Albumin Level 3.0(L) 3.5 - 5.0 g/dL [facility] Alkaline Phosphatase 61 39 - 117 U/L [facility] 07/06/2024 2:14 AM EST 07/06/2024 2:16 AM EST us Generic External Data Provider LAB BLOOD ORDERAB LES Final Result [facility] [address] [place] [phone] * (ABNORMAL) ALBUMIN, RANDOM URINE W/CREATININE (08/04/2021 10:15 AM EST) Microalbumin Urine 66.2 See Note: mg/dL [facility] Comment: Reference Range: ?? Reference [...] DO LAB URINE ORDERABLES Final R esult [facility] [address] from Last 3 Months or Most Recently Relevant to Health Maintenance Insurance [address] [place] [id number] [facility] Care Teams Applications Programmer Analyst Relationship Specialty Start Date End Date Amanda Watkins MD [address] [place] [address] PCP - General Family Medicine 04/07/19 Hiro Ram FNP [address] [place] [address] Nurse Practitioner Family Medicine [facility]
--- OUTSIDE RECORDS SUMMARY | 2024-10-06 12:53 | XMS_ITS | Encounter Summary ---
Author Organization [employer] Address [address] [facility] [place] [address] Care Team Providers Care Dielectric Embossing Machine Operator Name Role Phone Amanda Watkins MD Primary Care Provide r Hiro Ram Unavailable Unavailable Encounter Details Date Type Department Care Team ([facility] st Contact Info) Description 06/27/2024 Orders Only [facility] [address] [place] [address] Amanda Watkins MD [address] [place] [address] Social History Tobacco Use Types Packs/Day Years [...] Description 10/24/2024 2:00 PM EDT Office Visit [facility]OM[facility] [address] [place] [address] Emiliano, Elisa, OD [address] [place] [address] 11/28/2024 1:45 PM EDT Office Visit [facility] [address] [place] [address] Amanda Watkins MD [address] [place] [address] documented as of this encounter Visit Diagnoses Not on filedocumented in this encounter Additional Health Concerns Assessment Noted Time PHQ-9 Depression Total Score: 10 024 3:23 PM EDT documented as of this encounter Care Teams Dielectric Embossing Machine Operator Relationship Specialty Start Date End Date Amanda Watkins MD [address] [place] [phone] PCP - General Family Medicine 04/07/19 Hiro Ram FNP [address] [place] [phone] Nurse Practitioner Family Medicine 07/06/23 [facility] 07/03/22 08/16/24 Ja ARCE 08/10/24 documented as of this encounter
--- NOTE | 2024-10-06 13:39 | MHC.CARE ---
Pt does not meet the criteria for a higher level of care. She presented to the ED with her daughter reporting anxiety surrounding her son controlling her pain medication. Pt reported he gave her the medication as prescribed however she was in pain and asked for an additional dose which he would not administer. Pt became anxious and upset. At this time Pt denies SI, HI, and A/V/H. She has a supportive family and safe stable housing. Pt is requesting a referral to OP therapy and medication management to help with medications to mange her anxiety. Pt is Lebanese Speaking only.
--- NOTE | 2024-10-06 14:07 | MHC.CARE ---
[facility] referral complete
[2024-10-06 14:52] VITALS: BP 141/68; PULSE 78; RESP 16; TEMP 36.9; O2SAT 96
== END 2024-10-06 15:01 | disposition home or self-care (01) ==
PROVIDERS: Registered Nurse Emergency; Emergency Provider Emergency Medicine
DX: F33.1 Major depressive disorder, recurrent, moderate (principal); F41.1 Generalized anxiety disorder; I25.10 Atherosclerotic heart disease of native coronary artery without angina pectoris; I10 Essential (primary) hypertension; Z51.81 Encounter for therapeutic drug level monitoring; Z79.899 Other long term (current) drug therapy
CPT/HCPCS: 36415; 80053; 80307; 85025; 99284; 99285

== ENCOUNTER 2024-10-29 11:53 | Emergency (ER) | payer OTHER, SELFPAY ==
[2024-10-29 12:22] VITALS: BP 154/92; PULSE 62; O2SAT 97
--- NOTE | 2024-10-29 12:39 | ED_ITS ---
HPI - General Adult General Chief complaint: General Medical Stated complaint: BODY PAIN Time Seen by Provider: 10/29/24 12:16 Source: patient Mode of arrival: EMS Limitations: no limitations History of Present Illness HPI narrative: This is 74 years old female patient with a history of type 2 diabetes, hypertension, anxiety disorder, osteoporosis, chronic pain syndrome fibromyalgia presented to the emergency department with a chief complaint of anxiety generalized pain. She is crying he stating that she has pain all over. Onset (ago): day(s) (1) Location: upper extremity and lower extremity Radiation: non-radiation Severity: moderate Quality: burning Pain Consistency: constant Relieving factors: none Associated symptoms: denies other symptoms Related Data Home Medications ?Medication ?Instructions ?Recorded ?Confirmed insulin glargine 100 unit/mL 60 unit subcut DAILY 07/22/20 10/06/24 subcutaneous solution (Lantus U-100 Insulin) atorvastatin 80 mg tablet 80 mg PO BEDTIME 04/07/21 10/06/24 dapagliflozin propanediol 10 mg 10 mg PO DAILY 10/25/23 08/02/24 tablet (Farxiga) duloxetine 20 mg capsule,delayed 20 mg PO DAILY 03/18/24 08/02/24 release omeprazole 40 mg capsule,delayed 40 mg PO DAILY@0630 03/18/24 10/06/24 release aspirin 81 mg tablet,delayed 81 mg PO BEDTIME 06/11/24 10/06/24 release gabapentin 100 mg capsule 100 mg PO TID 06/11/24 10/06/24 oxycodone-acetaminophen 5 mg-325 1 tab PO Q6H PRN pain 06/11/24 10/06/24 mg tablet dulaglutide 0.75 mg/0.5 mL 0.75 mg subcut QWEEK 10/06/24 10/06/24 subcutaneous [facility] ketotifen fumarate 0.025 % (0.035 1 drp ophthalmic (eye) Q12H PRN 10/06/24 10/06/24 %) eye drops (Eye Itch Relief) Eye Irritation levothyroxine 75 mcg tablet 75 mcg PO QAM 10/06/24 10/06/24 trazodone 150 mg tablet 150 mg PO BEDTIME 10/06/24 10/06/24 Previous Rx's ?Medication ?Instructions ?Recorded apixaban 5 mg tablet (Eliquis) 5 mg PO BID #60 tabs 11/03/23 amlodipine 5 mg tablet 5 mg PO DAILY #30 tabs 06/20/24 torsemide 20 mg tablet 20 mg PO DAILY #30 tabs 06/20/24 Allergies Allergy/AdvReac Type Severity Reaction Status Date / Time codeine [CODEINE] Allergy Intermediate HALLUCINATI Verified 10/29/24 12:44 ONS Review of Systems 2 Constitutional: Constitutional: Reports no additional constitutional complaints Cardiovascular: Cardiovascular: Reports no additional cardiovascular complaints Gastrointestinal: Gastrointestinal: Reports no additional gastrointestinal complaints PMFSH Past Medical History Attestation statement: The following information was validated with the patient. Medical History CKD (chronic kidney disease) CKD stage 3 due to type 2 diabetes mellitus Leg abrasion Abuse of non-prescription analgesics Type 2 diabetes mellitus with unspecified complications Other and unspecified hyperlipidemia Essential hypertension Atherosclerotic cardiovascular disease Urgency incontinence Osteoporosis Arthritis Asthma Hypertension Fibromyalgia Diabetes mellitus Surgical History History of hernia repair Social History Social History Household Members: None Household Members Other:: friend Housing: Apartment Do you presently have visiting nurse or other home services: Yes Unable to assess alcohol history related to: Refusing to respond Alcohol intake: never 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 Patient Tobacco Use Status: Never used Tobacco Smoked in Last 30 Days: No Advance Directives: Yes Advance Directives on File: Yes Advance Directives Date on File: 04/07/24 Do you have a plan to hurt others: No Plan service: No Sexual orientation: Straight/Heterosexual Physical Exam ED Vital Signs: Vital Signs - 24 hr 10/29/24 12:42 10/29/24 14:00 Temperature 98.5 F Pulse Rate 55 66 Respiratory Rate 20 18 Blood Pressure 132/53 L 135/77 Pulse Oximetry 96 95 Oxygen Delivery Method Room Air Room Air BMI result Body Mass Index 51.1 No acute distress anxious looking Const General: cooperative Nutritional Appearance: well nourished Orientation/consciousness: patient oriented x3 HENMT Head: Yes normal to inspection General nose exam: Normal external nose present Face and sinus: Yes normal facial exam Mouth: Normal oral and palatal mucosa present Neck Neck: Yes normal visual inspection Resp Effort & Inspection: normal respiratory effort Auscultation: clear to auscultation bilaterally Cardio Jugular venous distension: no JVD Rate: regular rate Rhythm: regular rhythm GI Inspection: Yes normal to inspection Palpation (GI): Soft to palpation, not firm, nontender and no guarding General: Yes no CVA tenderness Back/Spine/Pelvis Back: no CVA tenderness Skin General skin exam: no rashes or lesions noted Lesions: no lesions Rashes: no rashes Neuro General: patient oriented x3 Extrem General: Yes normal to inspection Right upper extremity: normal to inspection Right lower extremity: normal to inspection Course Reevaluation(s) Reevaluation #1: On re-examination she is doing much better now, she received a total 1 mg of lorazepam. Vital signs are stable as 14:00 blood pressure is 135/77 heart rate is 66 respirations 18 afebrile sat 95% on room air. I spoke with the son as well he tells me that the patient has chronic pain she ran out oxycodone. Also she son tell me that she has a lot of anxiety. I offer the patient crisis evaluation however she tells me now that she is feeling better and she requests discharge she is not suicidal Time: 16:32 Medications Administered Discontinued Medications Generic Name Dose Route Start Last Admin Trade Name Elkin PRN Reason Stop Dose Admin Lorazepam 0.5 mg 10/29/24 12:16 10/29/24 12:51 Lorazepam 2 Mg/Ml Vial IVPUSH 10/29/24 12:17 0.5 mg ONCE ONE Administration Lorazepam 0.5 mg 10/29/24 13:06 10/29/24 13:16 Lorazepam 2 Mg/Ml Vial IVPUSH 10/29/24 13:07 0.5 mg ONCE ONE Administration Oxycodone HCl 5 mg 10/29/24 14:51 10/29/24 15:16 Oxycodone Hcl Immed Release 5 Mg Tablet PO 10/29/24 14:52 5 mg ONCE ONE Administration Medical Decision Making Medical Decision Making [facility] Narrative: Patient here complaining of generalized anxiety disorder chronic pain exacerbation we will check blood work administer anxiolytic. 16:25 the patient is doing much better, denies SI and HI, labs at the baseline, vital signs are stable normotensive heart rate normal afebrile sat 95% at this time she is requesting discharge. She lives with a son. I offered crisis evaluation but she declined she has no SI no HI. Clinical picture is consistent with anxiety and chronic pain syndrome. The son tells me that she ran out of the oxycodone. I know comfortable to prescribe any more narcotic in the patient with chronic pain. Differential Diagnosis Differential Diagnoses: The differential diagnosis associated with the presentation includes Panic attack/anxiety/chronic pain Admission/Observation Consideration of admission/observation: Escalation of care including admission/observation considered Lab Data MDM Lab Attestation statement: I reviewed the patient's lab results. 10/29/24 12:39 10/29/24 12:39 Labs: Lab Results 10/29/24 Range/Units 12:39 WBC 4.0 L (4.8-10.8) X10*3/uL RBC 3.68 L (4.20-5.50) X10*6/uL Hgb 8.1 L (12.0-16.0) g/dl Hct 27.7 L (37.0-47.0) % MCV 75.3 L (80.0-98.0) fL MCH 22.0 L (27.0-33.0) pg MCHC 29.2 L (31.0-35.0) g/dl RDW 15.9 (11.0-16.0) % Plt Count 203 D (160-400) X10*3/uL MPV 10.8 (9.4-12.3) fL Immature Gran % (Auto) 0.5 H (0.0-0.4) % Neut % (Auto) 57.4 (45-73) % Lymph % (Auto) 27.3 (20-40) % [place] % (Auto) 9.0 (2-11) % Eos % (Auto) 4.5 H (0-4) % Baso % (Auto) 1.3 (0-2) % Lymph # (Auto) 1.1 L (1.2-4.9) X10*3/uL [place] # (Auto) 0.4 (0.1-1.2) X10*3/uL Eos # (Auto) 0.2 (0.0-0.4) X10*3/uL Baso # (Auto) 0.1 (0.0-0.2) X10*3/uL Abs Immat Gran (auto) 0.02 (0.00-0.03) X10*3/uL Absolute Neuts (auto) 2.3 (2.0-8.3) x10*3/uL Absolute Nucleated RBC 0.000 (0.0-0.012) X10*3/uL Nucleated RBC % (auto) 0.0 (0.0-0.2) /100WBC Sodium 142 (135-145) mmol/L Potassium 4.7 (3.3-5.1) mmol/L Chloride 106 (96-108) mmol/L Carbon Dioxide 30 H (22-29) mmol/L Anion Gap 11 L (12-20) BUN 30 H (9-16) mg/dL Creatinine 1.50 H (0.5-1.4) mg/dL Estim Creat Clear Calc 35.2 Estimated GFR 34 Random Glucose 240 H (60-115) mg/dL Calcium 8.2 L (8.4-10.2) mg/dL Total Bilirubin 0.2 (0.0-1.0) mg/dL AST 29 (5-31) U/L ALT 8 (0-31) U/L Alkaline Phosphatase 60 (39-117) U/L Troponin I High Sens 9.7 (<3.5-17.0) ng/L Total Protein 6.8 (6.5-8.0) g/dL Albumin 3.1 L (3.5-5.0) g/dL External Record Review External record reviewed: Inpatient record and Office record Chronic Conditions fibromyalgia/chronic pain Discharge Plan Discharge Clinical Impression: Anxiety Chronic pain Qualifiers: Chronic pain type: chronic pain syndrome Qualified Code(s): G89.4 - Chronic pain syndrome Patient Disposition: Home, Self-Care Instructions: Chronic Pain (ED), Anxiety (ED) Additional Instructions: Please follow-up with your primary care physician call in a.m., return to the emergency department if you feeling worse, you declined crisis evaluation Prescriptions: No Action insulin glargine [Lantus U-100 Insulin] 100 unit/mL solution 60 unit subcut DAILY atorvastatin 80 mg tablet 80 mg PO BEDTIME dapagliflozin propanediol [Farxiga] 10 mg tablet 10 mg PO DAILY Eliquis 5 mg Tablet 5 mg PO BID Qty: 60 0RF omeprazole 40 mg capsule,delayed release(DR/EC) 40 mg PO DAILY@0630 duloxetine 20 mg capsule,delayed release(DR/EC) 20 mg PO DAILY aspirin 81 mg tablet,delayed release (DR/EC) 81 mg PO BEDTIME oxycodone-acetaminophen 5-325 mg tablet 1 tab PO Q6H PRN (Reason: pain) gabapentin 100 mg capsule 100 mg PO TID torsemide 20 mg tablet 20 mg PO DAILY Qty: 30 0RF amlodipine 5 mg Tablet 5 mg PO DAILY Qty: 30 0RF Protocol: Hold for SBP< HOLD for SBP < : 90 ketotifen fumarate [Eye Itch Relief] 0.025 % (0.035 %) drops 1 drp ophthalmic (eye) Q12H PRN (Reason: Eye Irritation) levothyroxine 75 mcg tablet 75 mcg PO QAM trazodone 150 mg tablet 150 mg PO BEDTIME Trulicity 0.75 mg/0.5 mL pen injector 0.75 mg subcut QWEEK Referrals: Amanda Watkins MD [Primary Care Provider] - 1 day Print Language: Portuguese
[2024-10-29 12:42] VITALS: BP 132/53; PULSE 55; RESP 20; TEMP 36.9; O2SAT 96; BMI 51.1
[2024-10-29 12:44] LABS: MANUAL DIFF FLAG NO
[2024-10-29 12:46] LABS: Basophils Absolute Auto 0.1 X10*3/uL (0.0-0.2); Basophils Percent Auto 1.3 % (0-2); Eosinophils Absolute Auto 0.2 X10*3/uL (0.0-0.4); Eosinophils Percent Auto 4.5 % (0-4); Hematocrit 27.7 % (37.0-47.0); Hemoglobin 8.1 g/dl (12.0-16.0); Imm Gran Abs Auto 0.02 X10*3/uL (0.00-0.03); Imm Gran Pct Auto 0.5 % (0.0-0.4); Lymphocytes Absolute Auto 1.1 X10*3/uL (1.2-4.9); Lymphocytes Percent Auto 27.3 % (20-40); Mean Corpuscular HGB Conc 29.2 g/dl (31.0-35.0); Mean Corpuscular Volume 75.3 fL (80.0-98.0); Mean Platelet Volume 10.8 fL (9.4-12.3); Monocytes Absolute Auto 0.4 X10*3/uL (0.1-1.2); Neutrophils Absolute Auto 2.3 x10*3/uL (2.0-8.3); Neutrophils Percent Auto 57.4 % (45-73); Platelet Count 203 X10*3/uL (160-400); Red Blood Count 3.68 X10*6/uL (4.20-5.50); Red Cell Distribution Width 15.9 % (11.0-16.0)
[2024-10-29] MEDS: LORazepam 2 MG/ML VIAL 0.5 MG IVPUSH ×2 (12:51→13:16)
[2024-10-29 13:21] LABS: Troponin-I High Sensitivity 9.7 ng/L (<3.5-17.0)
[2024-10-29 13:24] LABS: Alanine Aminotransferase 8 U/L (0-31); Albumin Level 3.1 g/dL (3.5-5.0); Alkaline Phosphatase 60 U/L (39-117); Anion Gap 11 (12-20); Aspartate Amino Transferase 29 U/L (5-31); Bilirubin Total 0.2 mg/dL (0.0-1.0); Blood Urea Nitrogen 30 mg/dL (9-16); Calcium 8.2 mg/dL (8.4-10.2); Carbon Dioxide 30 mmol/L (22-29); Chloride 106 mmol/L (96-108); Creatinine Clr Calc Pharmacy 35.2; Estimated Glomerular Filt Rate 34; Glucose Random 240 mg/dL (60-115); Potassium 4.7 mmol/L (3.3-5.1); Sodium 142 mmol/L (135-145); Total Protein 6.8 g/dL (6.5-8.0)
[2024-10-29 14:00] VITALS: BP 135/77; PULSE 66; RESP 18; O2SAT 95
--- NOTE | 2024-10-29 14:39 | PC.NURSE ---
Pt. pulled out IV at this time. Informed MD. No new orders.
[2024-10-29] MEDS: oxyCODONE HCl Immed Release 5 MG TABLET PO (15:16)
[2024-10-29 18:23] VITALS: BP 166/55; PULSE 57; RESP 20; TEMP 36.7; O2SAT 94
--- NOTE | 2024-10-29 20:01 | PC.NURSE ---
Still awaiting transport. Was informed from day shift supercharge repair supervisor of this matter.
--- NOTE | 2024-10-29 21:00 | PC.NURSE ---
F/U with charge authorizer about pt. transport home. Awaiting answer. Pt. resting with eyes close, and no s/s of distress or pain.
[2024-10-29 22:14] VITALS: BP 133/42; PULSE 54; RESP 12; TEMP 36.2; O2SAT 95
--- NOTE | 2024-10-29 23:19 | PC.NURSE ---
Report given to PHILLIP Calvin.
[2024-10-29 23:24] VITALS: BP 133/42; PULSE 54; RESP 12; TEMP 36.2; O2SAT 95
== END 2024-10-29 23:25 | disposition home or self-care (01) ==
PROVIDERS: Emergency Provider Emergency Medicine; PCP Internal Medicine
DX: F41.9 Anxiety disorder, unspecified (principal); G89.4 Chronic pain syndrome; E11.9 Type 2 diabetes mellitus without complications; I10 Essential (primary) hypertension; Z79.899 Other long term (current) drug therapy
CPT/HCPCS: 36415; 80053; 84484; 85025; 96374; 99284; J2060

== ENCOUNTER 2024-11-21 02:40 | Emergency (ER) | payer OTHER, SELFPAY ==
--- NOTE | ~2024-11-21 | XR_ITS ---
CLINICAL HISTORY: ?fall 3 view right ankle Comparison: None Findings: No acute fractures. Ankle mortise intact. No significant loss of joint space, osteophytes, or erosions. No ankle effusion. No radiopaque foreign body. IMPRESSION: 1. No acute findings. This document has been electronically signed by: Paul Calderon MD on 11/21/2024 05:22:34
[2024-11-21 02:51] VITALS: BP 120/63; PULSE 56; O2SAT 100
[2024-11-21 02:55] VITALS: BP 133/59; PULSE 58; RESP 19; TEMP 36.6; O2SAT 98; BMI 45.5
[2024-11-21 03:16] VITALS: BP 133/59; PULSE 58; RESP 19; TEMP 36.6; O2SAT 98
[2024-11-21 03:39] VITALS: BP 119/63; PULSE 57; RESP 16; TEMP 36.7; O2SAT 94
--- NOTE | 2024-11-21 03:55 | ED_ITS ---
HPI - General Adult General Chief complaint: General Medical Stated complaint: R ankle pain Time Seen by Provider: 11/21/24 03:54 Source: patient Mode of arrival: EMS Limitations: no limitations History of Present Illness ED Provider: HPI narrative: Patient's history of anxiety complaining of pain all over mostly in the right ankle especially she said she placed her right foot with forced to the ground few days ago since then been having pain patient is very anxious no deformity or swelling noticed of the foot or ankle Related Data Home Medications ?Medication ?Instructions ?Recorded ?Confirmed insulin glargine 100 unit/mL 60 unit subcut DAILY 07/22/20 10/06/24 subcutaneous solution (Lantus U-100 Insulin) atorvastatin 80 mg tablet 80 mg PO BEDTIME 04/07/21 10/06/24 dapagliflozin propanediol 10 mg 10 mg PO DAILY 10/25/23 08/02/24 tablet (Farxiga) duloxetine 20 mg capsule,delayed 20 mg PO DAILY 03/18/24 08/02/24 release omeprazole 40 mg capsule,delayed 40 mg PO DAILY@0630 03/18/24 10/06/24 release aspirin 81 mg tablet,delayed 81 mg PO BEDTIME 06/11/24 10/06/24 release gabapentin 100 mg capsule 100 mg PO TID 06/11/24 10/06/24 oxycodone-acetaminophen 5 mg-325 1 tab PO Q6H PRN pain 06/11/24 10/06/24 mg tablet dulaglutide 0.75 mg/0.5 mL 0.75 mg subcut QWEEK 10/06/24 10/06/24 subcutaneous pen injector (Trulicity) ketotifen fumarate 0.025 % (0.035 1 drp ophthalmic (eye) Q12H PRN 10/06/24 10/06/24 %) eye drops (Eye Itch Relief) Eye Irritation levothyroxine 75 mcg tablet 75 mcg PO QAM 10/06/24 10/06/24 trazodone 150 mg tablet 150 mg PO BEDTIME 10/06/24 10/06/24 Previous Rx's ?Medication ?Instructions ?Recorded apixaban 5 mg tablet (Eliquis) 5 mg PO BID #60 tabs 11/03/23 amlodipine 5 mg tablet 5 mg PO DAILY #30 tabs 06/20/24 torsemide 20 mg tablet 20 mg PO DAILY #30 tabs 06/20/24 Allergies Allergy/AdvReac Type Severity Reaction Status Date / Time codeine [CODEINE] Allergy Intermediate HALLUCINATI Verified 11/21/24 07:29 ONS Review of Systems Review of Systems: Yes all other systems are reviewed and are negative [facility] Past Medical History Medical History CKD (chronic kidney disease) CKD stage 3 due to type 2 diabetes mellitus Leg abrasion Abuse of non-prescription analgesics Type 2 diabetes mellitus with unspecified complications Other and unspecified hyperlipidemia Essential hypertension Atherosclerotic cardiovascular disease Urgency incontinence Osteoporosis Arthritis Asthma Hypertension Fibromyalgia Diabetes mellitus Surgical History History of hernia repair Social History Social History Household Members: None Household Members Other:: friend Housing: Apartment Do you presently have visiting nurse or other home services: Yes Unable to assess alcohol history related to: Refusing to respond Alcohol intake: never 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 Patient Tobacco Use Status: Never used Tobacco Advance Directives: Yes Advance Directives on File: Yes Advance Directives Date on File: 04/07/24 service: No Sexual orientation: Straight/Heterosexual Physical Exam ED Vital Signs: Vital Signs - 24 hr 11/21/24 02:55 11/21/24 03:16 11/21/24 03:39 Temperature 97.9 F 97.9 F 98.1 F Pulse Rate 58 58 57 Respiratory Rate 19 19 16 Blood Pressure 133/59 L 133/59 L 119/63 Pulse Oximetry 98 98 94 Oxygen Delivery Method Room Air Room Air Room Air 11/21/24 06:03 11/21/24 06:04 Temperature 97.8 F 97.8 F Pulse Rate 62 62 Respiratory Rate 17 17 Blood Pressure 135/59 L 135/59 L Pulse Oximetry 95 95 Oxygen Delivery Method Room Air Room Air BMI result Body Mass Index 45.5 Appearance: Alert. Oriented X3. No acute distress. Anxious Eyes: no pallor or icterus ENT: Pharynx erythematous Oral Mucosa moist tympanic membrane intact no erythema, clear rhinorrhea Neck: Normal inspection. Neck supple. CVS: Normal heart rate and rhythm. Pulses normal. Respiratory: No respiratory distress. Equal air entry bilateral, no wheezing/rales/rhonchi Abd: soft, not tender Skin: Skin warm and dry. Normal skin color. Normal skin turgor. Extremities: No lower extremity edema, no calf tenderness right ankle swelling noticed tenderness patient is very anxious complaining of pain even touching the skin Neuro: Oriented X 3. Medications Administered Discontinued Medications Generic Name Dose Route Start Last Admin Trade Name Freq PRN Reason Stop Dose Admin Lorazepam 1 mg 11/21/24 03:55 11/21/24 04:21 Lorazepam 1 Mg Tablet PO 11/21/24 03:56 1 mg ONCE ONE Administration Medical Decision Making Medical Decision Making MDM Narrative: Patient's x-ray negative for any deformity or fracture patient felt better after lorazepam symptoms likely from anxiety Independent Interpretation I performed an independent interpretation of an: Plain X-Ray Radiology Impression Discussion of test interpretation with radiology: I have reviewed the radiologist's reading. Discharge Plan Discharge Clinical Impression: Anxiety, Foot pain, right Patient Disposition: Home, Self-Care Instructions: Anxiety (ED) Additional Instructions: No fracture was seen in the your right ankle No signs of injury seen Continue take your medication follow with the PCP Prescriptions: No Action insulin glargine [Lantus U-100 Insulin] 100 unit/mL solution 60 unit subcut DAILY atorvastatin 80 mg tablet 80 mg PO BEDTIME dapagliflozin propanediol [Farxiga] 10 mg tablet 10 mg PO DAILY Eliquis 5 mg Tablet 5 mg PO BID Qty: 60 0RF omeprazole 40 mg capsule,delayed release(DR/EC) 40 mg PO DAILY@0630 duloxetine 20 mg capsule,delayed release(DR/EC) 20 mg PO DAILY aspirin 81 mg tablet,delayed release (DR/EC) 81 mg PO BEDTIME oxycodone-acetaminophen 5-325 mg tablet 1 tab PO Q6H PRN (Reason: pain) gabapentin 100 mg capsule 100 mg PO TID torsemide 20 mg tablet 20 mg PO DAILY Qty: 30 0RF amlodipine 5 mg Tablet 5 mg PO DAILY Qty: 30 0RF Protocol: Hold for SBP< HOLD for SBP < : 90 ketotifen fumarate [Eye Itch Relief] 0.025 % (0.035 %) drops 1 drp ophthalmic (eye) Q12H PRN (Reason: Eye Irritation) levothyroxine 75 mcg tablet 75 mcg PO QAM trazodone 150 mg tablet 150 mg PO BEDTIME Trulicity 0.75 mg/0.5 mL pen injector 0.75 mg subcut QWEEK Interventions: ED Discharge Assessment Last Done: 11/21/24 06:04 Discharge Date/Time: 11/21/24 06:45 Print Language: Italian
[2024-11-21] MEDS: LORazepam 1 MG TABLET PO (04:21)
[2024-11-21 06:03] VITALS: BP 135/59; PULSE 62; RESP 17; TEMP 36.6; O2SAT 95
[2024-11-21 06:04] VITALS: BP 135/59; PULSE 62; RESP 17; TEMP 36.6; O2SAT 95
== END 2024-11-21 06:45 | disposition home or self-care (01) ==
PROVIDERS: Emergency Provider Internal Medicine
DX: M79.671 Pain in right foot (principal); F41.9 Anxiety disorder, unspecified; I12.9 Hypertensive chronic kidney disease with stage 1 through stage 4 chronic kidney disease, or unspecified chronic kidney disease; E11.22 Type 2 diabetes mellitus with diabetic chronic kidney disease; N18.30 Chronic kidney disease, stage 3 unspecified
CPT/HCPCS: 73610; 99283; 99284

== ENCOUNTER → 2024-11-21 03:58 | Outpatient (BNV) | payer OTHER, SELFPAY | PROVIDERS: Emergency Provider Internal Medicine; Visit Provider Radiology Vascular & Interventional Radiology | DX: M25.571 Pain in right ankle and joints of right foot (principal) | CPT/HCPCS: 73610 ==

== ENCOUNTER 2024-11-21 07:12 | Emergency (ER) | payer OTHER, SELFPAY ==
[2024-11-21 07:27] VITALS: BP 144/65; PULSE 58; RESP 16; TEMP 36.4; O2SAT 92; BMI 35.0
--- OUTSIDE RECORDS SUMMARY | 2024-11-21 07:48 | XMS_ITS | Clinical Summary ---
Author Organization [facility] Address [address] [facility] [address] [place] [address] Phone Care Team Providers Care Director Of Business Operations Name Role Phone Amanda Watkins MD Primary [...] lifestyle modifications - Continue current medications - Immunizations Immunization Administration Dates Next Due Hepatitis B 06/07/2007,11/01/2006,03/12/2006 [...] Office Visit [facility] [address] [place] [id number] Tl Ibarra MD [address] [facility] [address] [place] [address] Health Maintenance Due Date Last Done Comments [...] age to complete this topic Pneumococcal Vaccine: 50+ Years Completed 12/06/2023, 07/16/2016, 02/17/2013, Additional history exists Pneumococcal Vaccine: Peds (0 to 5 Years) and At-Risk Patients (6 to 49 Years) Discontinued 12/06/2023, 07/16/2016, 02/17/2013, Additional history exists Influenza Vaccine Completed 06/23/2024, , 09/30/2017, Additional history exists Insurance [facility] ([id number]) [address] [place] [id number] [facility] ([id number]) Care Teams Director Of Business Operations Relationship Specialty Start Date End Date Amanda Watkins MD [address] [id number] PCP - General Internal Medicine 03/01/23
--- OUTSIDE RECORDS SUMMARY | 2024-11-21 07:48 | XMS_ITS | Data Portability ---
Author Organization [employer], [place] - [employer] Address [address] [place] [address] Care Team Providers Care Tactical Air Defense Controller Name Role Phone HIM CCA OTHER CRUZ MAURICE Primary Care Provider Assessment Encounter Date Assessment Date Assessment LastModified by Organization Details LastModified Time 02/09/2024 02/09/2024 I provided real -time medical direction via phone for this encounter, and was available for additional phone based assistance as needed. I have reviewed and agree with the Assessment and Plan as documented by the Media Traffic Manager. We discussed the diagnostic uncertainty of home [...] to call 911- verbalized understanding of instruction [email or web address] Not available 02/10/2024 00:01:48 03/27/2024 03/27/2024 I provided real -time medical direction via phone for this encounter, and was available for additional phone based assistance as needed. I have reviewed and agree with the Assessment and Plan as documented by the Media Traffic Manager. We discussed the diagnostic uncertainty of home [...] to call 911- verbalized understanding of instruction [email or web address] Not available 03/27/2024 16:48:02 05/29/2024 05/29/2024 service [...] in the field was performed by my cloth neutralizer colleague, as noted above, I provided real-time [...] Appointments None recorded. Lab culture, urine 2023 [place] [facility] (Centralized Electronic Ordering - All Locations), Patient Can Go To The Location Of Their Choice, [id number] 08:09:10 urinalysis, dipstick 2023 [facility], [address] [place] [address], [id number] 4 20:30:58 glucose, fingerstick , blood 2023 024 [email or web address] [facility], [address] [place] [address], [id number] 4 16:33:19 Referral None recorded. Procedures None recorded. Surgeries None recorded. Imaging None recorded. Medication Orders Ciprodex 0.3 %-0.1 % ear drops,suspe nsion 2024 025 [facility], [address] [place] [address], [id number], 5 12:33:11 clotrimazol e 1 % topical cream 2023 024 [facility], [address] [place] [address], [id number], 4 10:37:01 bacitracin 500 unit/gram topical ointment 2023 024 [email or web address] [facility], [address] [place] [address], [id number], 4 11:28:20 bacitracin 500 unit/gram topical ointment 2023 024 [facility], [address] [place] [address], [id number], 4 14:30:32 doxycycline hyclate 100 mg tablet 2023 024 [email or web address] [facility], [address], [place], [id number], 16:35:58 doxycycline hyclate 100 mg capsule 2023 024 [id number], [address] [place], [id number], 4 16:36:03 mupirocin 2 % topical ointment 2023 024 [id number], [address] [place], [id number], 4 16:36:03 Patient TargetsNo targets recorded. Patient Instructions Encounter Date Encounter Id Patient Instructions Last Modified By Organization Details Last Modified Time 02/09/2024 [id number] wound care* Not available 16:35:58 03/27/2024 [id number] wound care* [email or web address] Not available 11:28:21 Reason for Referral None Reported. Results Created Date Observation Date Name Description Value Unit Range Abnormal Flag Note LastModifiedBy Organization Detail LastModifiedTime 02/09/2002/09/2024 gluco se, gemma rene, blood Blood Glucose: mg/dl 148 Not Available [facility] - [facility] [address] [place] [address], [phone] 02/09/2024 16:30:22 05/29/20 24 05/31/2024 URINE CULTU RE,CO MPREH ENSIV E urine culture,comp rehensive Final report Not Available [facility] ([facility]) [address] [facility], [place], [address], 05/31/2024 08:09:10 05/29/2005/31/2024 URINE CULTU RE,CO MPREH ENSIV E result 1 COMMEN T Mixed uroge nital mary Great er than 100,0 00 colon y formi ng units per mL Not Available [facility] ([facility]) [address] [facility], [place], [address], 05/31/2024 08:09:10 Result Notes None recorded. Medical Equipment None Reported. Allergies Allergen ID Allergen Name Allergen Category Reaction Reaction Severity Criticality Documentation Date Start Date Code Code System Note Provider Name and Address Organization Details Recorded Time 5119 codeine medicatio n Not available Not available Not available 12/30/2023 2670 RxNorm Radha Foster MD [address] [facility],[address], [place], [phone], [facility] - [employer], [employer] 14:14:47 Medications Name Sig Start Date Stop Date Status Note LastModified by Organization Details LastModified Time melatonin 3 mg tabs TAKE 1 TABLET BY MOUTH EVERY DAY AT BEDTIME active Not Available Not Available No t Available medbox status USE DIRECTED active Not Available [...] Not Available Not Available No t Available fluconazole 100 mg tablet active Not Available Not Available Not Available atorvastatin 80 mg tablet TAKE 1 TABLET BY MOUTH AT BEDTIME active Not Available Not Available No t Available doxycycline hyclate 100 mg capsule TAKE 1 CAPSULE BY MOUTH TWICE A DAY AFTER MEALS FOR 10 DAYS active Not Available Not Available No t Available cefuroxime axetil 250 mg tablet active Not Available Not Available No t Available torsemide 20 mg tablet TAKE 1 TABLET BY MOUTH [...] Available Not Available No t Available melatonin 3 mg tablet TAKE 1 TABLET BY MOUTH AT BEDTIME active Not Available Not Available No t Available amlodipine 5 mg tablet TAKE 1 TABLET BY MOUTH EVERY MORNING active Not Available Not Available No t Available omeprazole 40 mg capsule,lenora yed release TAKE 1 CAPSULE BY MOUTH EVERY MORNING BEFORE BREAKFAST. DO NOT BREAK, CRUSH, DISSOLVE OR CHEW active Not Available Not Available No t Available aspirin 81 mg tablet,delay ed release TAKE 1 TABLET BY MOUTH EVERY MORNING [...] Not Available No t Available levothyroxin e 75 mcg tablet TAKE 1 TABLET BY MOUTH EVERY MORNING active Not Available Not Available No t Available oxycodone-ac etaminophen 5 mg-325 mg tablet TAKE 1 TABLET BY MOUTH EVERY 6 HOURS NEEDED FOR SEVERE PAIN active Not Available Not Available Not Available calcium 500 mg (as calcium carbonate 1,250 mg) tablet TAKE 1 TABLET BY MOUTH TWICE DAILY IN THE MORNING AND AT BEDTIME active Not Available Not Available [...] tablet TAKE 1 TABLET BY MOUTH EVERY DAY active Not Available Not Available No t Available paroxetine 20 mg tablet active Not Available Not Available Not Available trazodone 150 mg tablet TAKE 1 TABLET BY MOUTH AT BEDTIME active Not Available Not Available No t Available metformin 1,000 mg tablet TAKE 1 [...] active Not Available Not Available Not Available hydroxyzine HCl 25 mg tablet TAKE [...] mg capsule TAKE 1 CAPSULE BY MOUTH AT NOON, EVENING, AND BEDTIME active Not Available Not Available Not Available [...] Not Available Not Available Not Avai lable loratadine 10 mg tablet TAKE 1 TABLET BY MOUTH EVERY DAY active Not Available Not Available No t Available amoxicillin 875 mg-potassium clavulanate 125 mg tablet active Not Available Not Available Not Available oxycodone 5 mg tablet active Not Available Not Available No t Available Stool Softener-Lax ative 8.6 mg-50 mg tablet TAKE 1 TABLET BY MOUTH TWICE DAILY active Not Available Not Available No t Available ciprofloxaci n 0.3 %-dexamethas one 0.1 % ear drops,suspen rabia PLACE 4 DROPS INTO THE AFFECTED EAR(S) TWICE DAILY FOR 7 DAYS active Not Available Not Available N ot Available Alcohol Prep Pads USE DIRECTED TO TEST BLOOD SUGAR THREE [...] Not Available Not Available No t Available lactulose 10 gram/15 mL oral solution TAKE 15 ML BY MOUTH EVERY DAY FOR 10 DAYS active Not Available Not Available Not Available Flovent HFA 220 mcg/actuatio n aerosol inhaler INHALE 1 PUFF BY MOUTH TWICE DAILY. RINSE MOUTH AFTER USING. active Not Available Not Available No t Available Nyamyc 100,000 unit/gram topical powder active Not Available Not Available Not Available calamine 8 %-zinc oxide 8 % lotion APPLY TO THE AFFECTED AREA(S) TOPICALLY TWICE DAILY NEEDED FOR ITCHING active Not Available Not Available Not Available FreeStyle [place] Lite kit USE DIRECTED TO TEST BLOOD SUGAR THREE TIMES DAILY active Not Available Not Available Not Available diclofenac 1 % topical gel APPLY 2 GRAMS TOPICALLY 4 TIMES A DAY IN THE MORNING, AT NOON, IN THE EVENING, AND AT BEDTIME NEEDED FOR PAIN active Not Available Not Available No t Available melatonin 5 mg tablet TAKE 1 TABLET BY MOUTH AT BEDTIME NEEDED FOR SLEEP active Not Available Not Available No t Available Eye Itch Relief 0.025 % (0.035 %) drops INSTILL 1 DROP AFFECTED EYE(S) EVERY TWELVE HOURS NEEDED active Not Available Not Available No t Available TRUEplus Lancets 33 gauge USE DIRECTED TO TEST BLOOD SUGAR THREE TIMES DAILY active Not Available Not Available Not Available Eliquis 5 mg tablet TAKE 1 TABLET BY MOUTH TWICE DAILY IN THE MORNING AND AT BEDTIME active Not Available Not Available No t Available BD Insulin Syringe Ultra-Fine 1 mL 31 gauge x 16 USE DAILY WITH INSULIN active Not Available Not Available No t Available Farxiga 10 mg tablet TAKE 1 TABLET BY MOUTH EVERY MORNING active Not Available Not Available No t Available Trulicity 0.75 mg/0.5 mL subcutaneous pen injector INJECT ONE PEN (=0.75MG) SUBCUTANEOU SLY ONCE A WEEK DIRECTED active Not Available Not Available No t Available FreeStyle Precision Enrique Strips TEST BLOOD SUGAR THREE TIMES DAILY active Not Available Not Available Not Available Lokelma 10 gram oral powder packet DISSOLVE 1 PACKET DIRECTED AND TAKE BY MOUTH EVERY WEDNESDAY, WEDNESDAY, AND WEDNESDAY active Not Available Not Available N ot Available FreeStyle Mickey 2 Sensor kit USE DIRECTED CHANGE EVERY 14 DAYS active Not Available Not Available No t Available FreeStyle Mickey 2 Mcgrath USE DIRECTED EVERY 8 HOURS active Not Available Not Available No t Available Vitals Date Recorded Heart rate Body height Body temperature Respiratory rate Oxygen saturation Oxygen saturation in Arterial blood by Pulse oximetry Body weight Systolic blood pressure Diastolic blood pressure Provider Name and Address Organization Details Last Updated DateTime 4 57 /min 154.94 cm 97.8 [degF] 16 /min 92 % 92 % 394354. 184 g 126 mm[Hg] 76 mm[Hg] Not Available [email or web address] 4 16:16:18 Date Recorded Body temperature Oxygen saturation Oxygen saturation in Arterial blood by Pulse oximetry Body weight Respiratory rate Heart rate Systolic blood pressure Diastolic blood pressure Provider Name and Address Organization Details Last Updated DateTime 4 97.6 [degF] 96 % 96 % 334362. 592 g 16 /min 62 /min 130 mm[Hg] 66 mm[Hg] Not Available [email or web address] 4 15:32:02 Date Recorded Respiratory rate Oxygen saturation Oxygen saturation in Arterial blood by Pulse oximetry Body height Heart rate Body temperature Body weight Systolic blood pressure Diastolic blood pressure Provider Name and Address Organization Details Last Updated DateTime 4 16 /min 94 % 94 % 157.48 cm 60 /min 98.7 [degF] 813773. 448 g 129 mm[Hg] 77 mm[Hg] Not Available [email or web address] 4 11:19:40 Date Recorded Heart rate Body height Body temperature Respiratory rate Oxygen saturation Oxygen saturation in Arterial blood by Pulse oximetry Body weight Systolic blood pressure Diastolic blood pressure Provider Name and Address Organization Details Last Updated DateTime 4 58 /min 134.62 cm 99.3 [degF] 16 /min 95 % 95 % 812630. 632 g 150 mm[Hg] 73 mm[Hg] Not Available [email or web address] 4 17:02:13 Date Recorded Body temperature Respiratory rate Oxygen saturation Oxygen saturation in Arterial blood by Pulse oximetry Heart rate Systolic blood pressure Diastolic blood pressure Provider Name and Address Organization Details Last Updated DateTime 5 99.2 [degF] 14 /min 98 % 98 % 60 /min 108 mm[Hg] 57 mm[Hg] Not Available [employer] [employer] 5 17:25:24 Social History None recorded. Functional Status None recorded. Mental Status None recorded. Family History Nothing Reported. Medical History No medical history recorded. Gynecological HistoryNo gynecological history recorded. Obstetrics History GPAL:G 0 P 0 0 0 0 Past Encounters Encounter ID Performer Location Encounter Start Date Encounter Closed Date Diagnosis/Indication Diagnosis SNOMED-CT Code Diagnosis ICD10 Code Diagnosis Note [id number] Radha Foster MD [facility] - [facility] [address] [place] [phone] 12/30/2023 14:10:14 12/31/2023 21:23:21 Cellulitis of lower limb 455803564 L03.119 left lower leg primarily ? starting on right- has percocet 10/325 q 12 hrs- may have otc tylenol 2 x per day in between-da [facility] confirms he has regular Tylenol [...] better staph coverage-a dvised to apply sparingly. [id number] Radha Foster MD Main - [facility] [address] [place] [phone] 02/09/2024 16:16:11 02/10/2024 13:33:55 Cellulitis of lower limb [id number] L03.119 left lower leg primarily, less on right- had percocet 10/325 q 12 hrs- no longer on med list-may have otc tylenol 4 x per day in between-da [facility] confirms he has regular Tylenol [...] better staph coverage-a dvised to apply sparingly. [id number] Angely Lake MD Main - [address] [address] 02/23/2024 15:31:54 02/23/2024 22:21:20 Peripheral vascular disease [id number] I73.9 73 year old female being evaluated [...] assessment and plan as documented by the cloth neutralizer. I provided real-time medical direction for this encounter and was immediatel y available to provide additional phone-base d assistance as needed. We discussed the diagnostic uncertaint y of home visits and associated risks. We discussed the need to seek care urgently/e mergently in the setting of any new or worsening symptoms. [id number] Radha Foster MD Main - [address] [address] 03/27/2024 11:19:23 03/27/2024 22:47:07 Wound of skin [id number] T14.8XXA Advised to elevate the leg/not use [...] reviewed she is only allergic to codeine. [id number] Len Nguyen MD Main - [address] [address] 05/29/2024 17:02:10 05/30/2024 10:24:58 Kelsi mckeon [id number] B35.6 Urinary symptoms [id number] 08 R39.9 [id number] Michelle Rg MD [facility] - [facility] [address] [place] [address] 09/25/2024 17:25:19 09/26/2024 08:34:36 Otitis externa of right ear [id number] 621480 H60.91 Health Concerns Section Related Observation LastModified by Organization Detai ls LastModified Time None Recorded Concern Status LastModified by Organization Details LastModified Time None Recorded Advance Directives Directive None Recorded Payers Encounter Date Sequence Insurance Name Policy Number Policy Meza Covered Member ID Meza Member ID Guarantor Name 02/09/2024 1 [facility] - DOS ON OR AFTER 2022 - DUAL ELIGIBLE - HALFWAY OPTIONS AND ONE CARE (MEDICARE REPLACEMENT/ADV ANTAGE - HMO) Mary Loujack Garnero [employer]is[employer] [id number] Mary Lou Garnero [employer]is[employer]os 02/23/2024 1 [employer] - DOS ON OR AFTER 2022 - DUAL ELIGIBLE - HALFWAY OPTIONS AND ONE CARE (MEDICARE REPLACEMENT/ADV ANTAGE - HMO) Mary Loujack Garnero [employer] [id number] Mary Lou Garnero Cis[employer]os 03/27/2024 1 [employer] - DOS ON OR AFTER 2022 - DUAL ELIGIBLE - HALFWAY OPTIONS AND ONE CARE (MEDICARE REPLACEMENT/ADV ANTAGE - HMO) Mary Loujack Garnero Cis[employer]os [id number] Mary Lou Garnero [employer] 05/29/2024 1 [employer] - DOS ON OR AFTER 2022 - DUAL ELIGIBLE - HALFWAY OPTIONS AND ONE CARE (MEDICARE REPLACEMENT/ADV ANTAGE - HMO) Mary Loujack Garnero [employer] [id number] Mary Lou Garnero [employer] 09/25/2024 1 [employer] - DOS ON OR AFTER 2022 - DUAL ELIGIBLE - HALFWAY OPTIONS AND ONE CARE (MEDICARE REPLACEMENT/ADV ANTAGE - HMO) Mary Lou Sonido [employer] [id number] Mary Lou Garnero [employer] Notes Date Note Type Note Provider Name and Address Organization Details Recorded Time 02/09/2024 text/html HPI: PMHx: Varicose veinsCall [facility]. Reports pt having [...] any additional information to process this visit. Media Traffic Manager POC Test Results from Jerman Anderson [facility] Blood Glucose Measurement (16:42:48) Blood Glucose: 148 mg/dL .................... .................... .................... .................... .................... .................... .................... . Media Traffic Manager Note From Jerman Anderson: [facility] visit for female patient with cellulitis. Pt presents conscious and alert. Pt Italian speaking only so daughter translated. Daughter reports that patient has had cellulitis for some time, [facility] [...] as well. Blood glucose assessed. [facility] with [facility] [place] Foster who prescribed additional course of [...] PCP in the office. Radha Foster MD [address] [facility],[address], [place], [address], [facility] 02/10/2024 00:01:57 02/23/2024 text/html HPI: Patient has wounds on her lower legs. RN called for a member with DM and lower leg ulcers. He was seen on February 08 and completed the antibiotics, but the wounds do not look any better. Member has an appt on Wednesday , could not get her seen today and placed visit for .[facility] visit .................... .................... .................... .................... .................... .................... .................... . CRC Nurse Triage Notes (Nicole Bell): Comments: CRC RN DID NOT NEED FURTHER INFO .................... .................... .................... .................... .................... .................... .................... . Media Traffic Manager Note From Abelardo Castro: Pt daughter concerned for wound/celilitis on legs not healing after antibiotic treatment. Pt denies fever pain edema or wheeping. Baseline vitals assessed. Cellulitis appears to be in healing stages. No bleeding or wheeping. Pictures uploaded. Pt sts has appt with pcp on Wednesday. . [facility] contacted and [facility] spoke with pt and advised to monitor for worsening redness or edema. Pt advised to follow up with pcp. Pt education on signs indicating the ER. .................... .................... .................... .................... .................... .................... .................... . Disposition: Fulfilled Angely Lake MD [address] [facility],[address], [place], [address], [employer] 02/23/2024 21:33:16 03/27/2024 text/html CRC Nurse Triage Notes (Rishi Domínguez): Reason For Request: left leg pain Chief Complaints: Pain PMH: Diabetes, Hypertension, COPD/Asthma Other Allergies: NKDA Comments: Extraction Supervisor verified the member's name//address and phone number. [...] .................... .................... .................... .................... .................... .................... . Media Traffic Manager Note From Markell Villagomez: Pt? s daughter/CG reports pt was seen at [facility] last week for cellulitis of the [...] .................... . Disposition: Fulfilled Radha Foster MD [address] [place] [address],[address], [place], [phone], [employer] 03/27/2024 16:49:56 05/29/2024 text/html HPI: pmhx: UTI, candidiasis of vagina UTI, urine retention.Call returned to Mary Lou Cisneros to triage below. Reports having rash on callie area x 1 week. Per daughter no fluid filled spots. Small red pin point spots. Pt also having urinary frequency. Has applied Vaseline to area with mild relief. Per daughter concerned as pt is DM and has been scratching area concerned for infection. Unable to bring pt to WIC at [facility] as pt is bed bound. Agrees to [employer] referral. Confirmed address, contact number and allergies. .................... .................... .................... .................... .................... .................... .................... . CRC Nurse Triage Notes (Melinda Melvin): Chief Complaints: Rash, UTI/Pyelonephritis PMH: COPD/Asthma, Diabetes, Hypertension, COPD/Asthma Other Allergies: CODIENE Comments: CRC RN did not require any additional information to process this visit. Media Traffic Manager Organization Information for Jerman Anderson Business Legal Name: [employer]? Address: [address] [place] [address], Psychologist Personnel: Jhon Strickland MD [facility] No.: [id number] Media Traffic Manager POC Test Results from Jerman Anderson Blood [...] .................... .................... .................... .................... .................... .................... . Media Traffic Manager Note From Jerman Anderson: [facility] visit for female pt. 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 Pt has reportedly had redness and irritation in her groin for 1 week in addition to high blood sugars. V/S taken as listed. Pt afebrile, though temp seems to be elevated with pt having taken acetaminophen today. FOREST PATHOLOGY ASSOCIATE PROFESSOR changed pt's diaper and redness was noted in addition to smell consistent with possible fungal infection. Obtained urine sample positive for leukocytes and nitrates and blood and glucose. Blood glucose elevated at 335 mg/dL. Family reports difficulty maintaining blood sugar and that pt has not adhered to dietary restrictions. Urine culture obtained. Consulted with [facility] [place]. Nguyen who prescribed clotrimazole and ordered urine culture. Reviewed red flags for ED. Pt education provided. Culture delivered to [facility]. [facility] Lab Orders: culture, urine: Performed .................... .................... .................... .................... .................... .................... .................... . Disposition: Fulfilled Len Nguyen MD [address] [place] [address],[address], [place], [phone], [employer] 05/29/2024 22:50:45 09/25/2024 text/html CRC Nurse Triage Notes (Margarita Verde - RN): Chief Complaints: Earache, Back pain, Neck pain PMH: Hypertension, COPD/Asthma, Chronic Back Pain, Fibromyalgia, Osteoarthritis, Osteoporosis PMH Reviewed at 09/25/2024:46 Allergies Reviewed at 09/25/2024:46 Comments: Patient is [...] s/s and seek emergency treatment if needed. Media Traffic Manager Organization Information for Markell Villagomez Business Legal Name: [facility] Address: [address] [place], [place] [address] [address], Psychologist Personnel: Rob HERNANDEZ No.: [id number] Media Traffic Manager POC Test Results from Markell Villagomez Rapid COVID antigen (17:31:49) COVID: - Rapid influenza antigen (17:31:49) Flu: - CRC Nurse Triage Notes (Margarita Verde - PHILLIP): Chief Complaints: Earache, Back pain, Neck pain PMH: Hypertension, COPD/Asthma, Chronic Back Pain, Fibromyalgia, Osteoarthritis, Osteoporosis PMH Reviewed at 09/25/2024 Allergies Reviewed at 09/25/2024:46 Comments: Patient is [...] reported s/s and seek emergency treatment if needed.[facility] HPI: known FM, chronic pain, uses oxycodone and gabapentin for this. 3-7d R ear pain. some sinus congestion .................... .................... .................... .................... .................... .................... .................... . Media Traffic Manager Note From Markell Villagomez: This 74-year-old [...] .................... .................... .................... .................... .................... .................... . [facility] Consulted: Michelle Rg .................... .................... .................... .................... .................... .................... .................... . Disposition: Fulfilled Michelle Rg MD [address] [facility],[address], [place], [address], TINO GONZALEZ 09/25/2024 18:01:43 OBGyn Episode No OBEpisode recorded.
--- NOTE | 2024-11-21 08:03 | ED.GENADULT ---
HPI - General Adult General Chief complaint: General Medical Stated complaint: RECENT ER DC BY AMB,UNABLE TO ENTER HOME,RETURNING Time Seen by Provider: 11/21/24 08:01 Source: patient, EMS and chin strap cutter (All interactions with this patient were facilitated with an [facility] coordinator of placement) Mode of arrival: EMS Limitations: language barrier (All interactions with this patient were facilitated with an [facility] coordinator of placement) History of Present Illness ED Provider: Bryanna Oreilly PA-C HPI narrative: Patient is a 74 year old assigned female at with a history of CAD, HTN, DM, CHF, MDD, and anxiety presenting to the emergency department today requesting discharge to the appropriate address. Patient states that she was seen here earlier and discharged to the wrong address. Patient states that she has no new or different complaints and needs a new ride home. Patient denies any dizziness, lightheadedness, abdominal pain, nausea, vomiting, fever, chills, blurry vision, double vision, loss of vision, chest pain, difficulty breathing, shortness of breath, back pain, night sweats, pain with urination, increased urinary frequency, increased urinary urgency, blood in her urine or stool, syncope or a near syncopal episode, recent trauma or falls, bowel incontinence, bladder incontinence, or any other complaints at this time. Relieving factors: none Exacerbating factors: none Associated symptoms: denies other symptoms Treatments prior to arrival: none Related Data Home Medications ?Medication ?Instructions ?Recorded ?Confirmed insulin glargine 100 unit/mL 60 unit subcut DAILY 07/22/20 10/06/24 subcutaneous solution (Lantus U-100 Insulin) atorvastatin 80 mg tablet 80 mg PO BEDTIME 04/07/21 10/06/24 dapagliflozin propanediol 10 mg 10 mg PO DAILY 10/25/23 08/02/24 tablet (Farxiga) duloxetine 20 mg capsule,delayed 20 mg PO DAILY 03/18/24 08/02/24 release omeprazole 40 mg capsule,delayed 40 mg PO DAILY@0630 03/18/24 10/06/24 release aspirin 81 mg tablet,delayed 81 mg PO BEDTIME 06/11/24 10/06/24 release gabapentin 100 mg capsule 100 mg PO TID 06/11/24 10/06/24 oxycodone-acetaminophen 5 mg-325 1 tab PO Q6H PRN pain 06/11/24 10/06/24 mg tablet dulaglutide 0.75 mg/0.5 mL 0.75 mg subcut QWEEK 10/06/24 10/06/24 subcutaneous pen injector (Trulicity) ketotifen fumarate 0.025 % (0.035 1 drp ophthalmic (eye) Q12H PRN 10/06/24 10/06/24 %) eye drops (Eye Itch Relief) Eye Irritation levothyroxine 75 mcg tablet 75 mcg PO QAM 10/06/24 10/06/24 trazodone 150 mg tablet 150 mg PO BEDTIME 10/06/24 10/06/24 Previous Rx's ?Medication ?Instructions ?Recorded apixaban 5 mg tablet (Eliquis) 5 mg PO BID #60 tabs 11/03/23 amlodipine 5 mg tablet 5 mg PO DAILY #30 tabs 06/20/24 torsemide 20 mg tablet 20 mg PO DAILY #30 tabs 06/20/24 Allergies Allergy/AdvReac Type Severity Reaction Status Date / Time codeine [CODEINE] Allergy Intermediate HALLUCINATI Verified 11/21/24 07:29 ONS Review of Systems Constitutional: Constitutional: Reports no additional constitutional complaints, Denies chills, Denies fever(s) and Denies night sweats Eyes: Eyes: Reports no additional eye complaints, Denies blurry vision, Denies change in vision, Denies diplopia, Denies eye discharge, Denies loss of vision and Denies eye pain ENT: Denies dizziness Cardiovascular: Cardiovascular: Reports no additional cardiovascular complaints, Denies chest pain, Denies lightheadedness, Denies Loss of Consciousness and Denies dyspnea Respiratory: Respiratory: Reports no additional respiratory complaints and Denies dyspnea Gastrointestinal: Gastrointestinal: Reports no additional gastrointestinal complaints, Denies abdominal pain, Denies melena, Denies hematochezia, Denies change in bowel habits and Denies change in stool character Genitourinary: Genitourinary: Denies hematuria, Denies urinary frequency, Denies dysuria, Denies urinary incontinence, Denies urinary hesitancy and Denies urinary urgency Musculoskeletal: Musculoskeletal: Reports no additional musculoskeletal complaints, Denies numbness and Denies tingling Neurologic: Denies dizziness, Denies loss of vision, Denies numbness and Denies tingling Psychiatric: Psychiatric: Reports no additional psychiatric complaints Endocrine: Endocrine: Reports no additional endocrine complaints Hematologic/Lymphatic: Hematologic/Lymphatic: Reports no additional hematologic/lymphatic complaints Allergic/Immunologic: Allergic/Immunologic: Reports no additional allergic/immunologic complaints [facility] Past Medical History Attestation statement: The following information was validated with the patient. Source: old records reviewed and nursing notes reviewed Medical History CKD (chronic kidney disease) CKD stage 3 due to type 2 diabetes mellitus Leg abrasion Abuse of non-prescription analgesics Type 2 diabetes mellitus with unspecified complications Other and unspecified hyperlipidemia Essential hypertension Atherosclerotic cardiovascular disease Urgency incontinence Osteoporosis Arthritis Asthma Hypertension Fibromyalgia Diabetes mellitus Surgical History History of hernia repair Social History Social History Household Members: None Household Members Other:: friend Housing: Apartment Do you presently have visiting nurse or other home services: Yes Unable to assess alcohol history related to: Refusing to respond Alcohol intake: never 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 Patient Tobacco Use Status: Never used Tobacco Advance Directives: Yes Advance Directives on File: Yes Advance Directives Date on File: 04/07/24 service: No Sexual orientation: Straight/Heterosexual Physical Exam ED Vital Signs: Vital Signs - 24 hr 11/21/24 07:27 Temperature 97.5 F Pulse Rate 58 Respiratory Rate 16 Blood Pressure 144/65 H Pulse Oximetry 92 Oxygen Delivery Method Room Air BMI result Body Mass Index 35.0 Const General: cooperative, no acute distress, alert and awake Nutritional Appearance: well nourished Orientation/consciousness: patient oriented x3 Limitations: no limitations [facility] Head: Yes normal to inspection and Yes atraumatic Ears: hearing grossly normal bilaterally and external ears normal General nose exam: Normal external nose present, no nasal discharge noted and no epistaxis Face and sinus: Yes normal facial exam, No abrasion and No laceration Mouth: Normal oral and palatal mucosa present, no drooling and no muffled voice Eyes General: appearance normal, both eyes and all related structures Periorbital: periorbital findings normal Eyelids: Yes eyelids normal Conjunctivae: conjunctivae normal Pupils: Equal, round and reactive pupils present EOM: EOMs intact bilaterally Neck Neck: Yes normal visual inspection, Yes full ROM and Yes no lymphadenopathy Chest Chest palpation & inspection: normal inspection of the chest Resp Effort & Inspection: normal respiratory effort and able to speak in complete sentences GI Inspection: Yes normal to inspection Neuro General: patient oriented x3, moves all extremities and CN's II-XI intact bilaterally Cranial nerves: Yes Equal, round and reactive pupils present Cognition (Neuro): normal cognition Extrem General: Yes normal to inspection, Yes full ROM and Yes capillary refill normal Psych Appearance: grossly normal Mental Status: mental status grossly normal Affect: normal affect Attitude: cooperative Thought process: Normal thought process present Thought content: Normal thought content present Insight: Good insight present (Psych) Medical Decision Making Medical Decision Making MDM Narrative: Patient is a 74 year old assigned female at with a history of CAD, HTN, DM, CHF, MDD, and anxiety presenting to the emergency department today requesting discharge to the appropriate address. Patient's physical exam was unremarkable. I explained my physical exam findings to the patient. I answered all questions asked by the patient. I stressed the importance of the patient taking her medication as directed (either prescribed or as the over the counter packaging recommends). I stressed the importance of the patient following up with her primary care provider. I stressed the importance of the patient returning to the emergency department immediately if she were to develop any dizziness, shortness of breath, difficulty breathing, chest pain, blurry vision, loss of vision, nausea, vomiting, abdominal pain, fever, chills, back pain, or any other complaints. Patient verbalized agreement and understanding with this treatment plan and discharge. Differential Diagnosis Differential Diagnoses: The differential diagnosis associated with the presentation includes Transportation needs Independent Historian Clinical information obtained from an independent historian. History obtained from or confirmed by: EMS (EMS provided additional history and confirmed the history provided by the patient. ) Discharge Plan Discharge Clinical Impression: Normal physical examination Patient Disposition: Home, Self-Care Instructions: Normal Exam (ED) Additional Instructions: Follow up with your primary care provider. Return to the emergency department immediately if you develop any dizziness, shortness of breath, difficulty breathing, chest pain, blurry vision, loss of vision, nausea, vomiting, abdominal pain, fever, chills, back pain, or any other complaints. Smita?seguimiento?con scherer m?dico de atenci?n primaria. Acuda inmediatamente al servicio de urgencias si presenta falta de aliento, dificultad para respirar, dolor tor?cico, mareos, aturdimiento, dolor de espalda, dolor abdominal, fiebre, escalofr?os o cualquier otro s?ntoma. Please see the information below about our Patient Portal. If you are not yet enrolled in the [facility] Patient Portal, you will receive an enrollment email invitation following your visit to any [facility] care setting. You may also self-enroll in the Patient Portal by visiting our website: [email or web address] The following information is required to access the Patient Portal: - Your [facility] Medical Record Number - Your personal home email address (must match what is in your electronic medical record, Registration staff can assist with this) - Name - Date of Capabilities of the Patient Portal: - Message some providers - View upcoming appointments - Access your health summary, medical history, and visit history - View current conditions and allergies - View procedure and lab results - View your medications, including guidelines, side effects, and precautions - Complete pre-appointment questionnaires requested by your provider - Ready summary reports of your office visits and procedures To access the Patient Portal Mobile B[employer]u, follow these directions: - Search [employer] in the Bindu Store or [employer] Store - Download the Bindu - Search for [facility] - Enter your login/password Portal del paciente Si usted no esta inscrito en el portal de pacientes de [facility] y [facility], recibira gulshan invitacion de inscripcion despues de scherer visita al [facility] o al [facility] via correo electronico. Tambien puede inscribirse voluntariamente en el portal de pacientes visitando nuestra pagina web: [email or web address] La siguiente informacion sera requerida para acceder al portal: - Scherer domenic de historia medica de [facility] - Scherer direccion de correo electronico personal - Nombre - Fecha de nacimiento Capacidades: Las siguientes capacidades estan disponibles en el portal de pacientes: - Enviar mensajes a algunos doctores - Verificar proximas citas - Acceso a scherer historial de nisha, registro medico e historial de visitas - Efren las condiciones actuales y alergias efren procedimientos y resultados del laboratorio - Efren kerry medicamentos, incluyendo las pautas - Efectos secundarios y precauciones - Completar o llenar formularios / cuestionarios de - Citas solicitadas por scherer doctor - Leer los resumenes de reportes medicos de kerry visitas y procedimientos [place] acceder a la aplicacion movil: - [employer] en la B[employer]u Store o [employer] Store - Descargue la aplicacion - [facility] - Ingrese scherer nombre de usuario / Contrasena Prescriptions: No Action insulin glargine [Lantus U-100 Insulin] 100 unit/mL solution 60 unit subcut DAILY atorvastatin 80 mg tablet 80 mg PO BEDTIME dapagliflozin propanediol [Farxiga] 10 mg tablet 10 mg PO DAILY Eliquis 5 mg Tablet 5 mg PO BID Qty: 60 0RF omeprazole 40 mg capsule,delayed release(DR/EC) 40 mg PO DAILY@0630 duloxetine 20 mg capsule,delayed release(DR/EC) 20 mg PO DAILY aspirin 81 mg tablet,delayed release (DR/EC) 81 mg PO BEDTIME oxycodone-acetaminophen 5-325 mg tablet 1 tab PO Q6H PRN (Reason: pain) gabapentin 100 mg capsule 100 mg PO TID torsemide 20 mg tablet 20 mg PO DAILY Qty: 30 0RF amlodipine 5 mg Tablet 5 mg PO DAILY Qty: 30 0RF Protocol: Hold for SBP< HOLD for SBP < : 90 ketotifen fumarate [Eye Itch Relief] 0.025 % (0.035 %) drops 1 drp ophthalmic (eye) Q12H PRN (Reason: Eye Irritation) levothyroxine 75 mcg tablet 75 mcg PO QAM trazodone 150 mg tablet 150 mg PO BEDTIME Trulicity 0.75 mg/0.5 mL pen injector 0.75 mg subcut QWEEK Referrals: Amanda Watkins MD [Primary Care Provider] - Print Language: Czech
--- NOTE | 2024-11-21 09:21 | PC.NURSE ---
Confirmed correct address, [address], [place] [address] with daughter (Britni Layton) over the phone. Arranging EMS transportation home to this correct address.
[2024-11-21 11:11] VITALS: BP 144/65; PULSE 58; RESP 16; TEMP 36.4; O2SAT 92
== END 2024-11-21 11:11 | disposition home or self-care (01) ==
PROVIDERS: Emergency Provider Emergency Medicine; PCP Internal Medicine
DX: Z04.89 Encounter for examination and observation for other specified reasons (principal)
CPT/HCPCS: 99283

== ENCOUNTER 2024-11-25 09:17 | Emergency (ER) | payer OTHER, SELFPAY ==
--- NOTE | ~2024-11-25 | CT_ITS ---
CLINICAL HISTORY: abdominal pain diffuse CT abdomen and pelvis without contrast Comparison: None Findings: No consolidation or effusion. Unremarkable solid organs. There are gallstones. The gallbladder is otherwise unremarkable. There is no biliary tract dilatation. No urolithiasis. No bowel obstruction, pneumoperitoneum, or pneumatosis. There are calcified uterine leiomyomata. Pelvic contents otherwise unremarkable. The appendix is not visualized with no imaging evidence of appendicitis. No acute fracture. IMPRESSION: No acute findings. This document has been electronically signed by: Garth Regan MD on 11/25/2024 13:28:24
[2024-11-25 09:30] VITALS: BP 140/63; PULSE 68; RESP 22; TEMP 36.7; O2SAT 98; BMI 45.2
--- NOTE | 2024-11-25 09:45 | ED.ABDPAIN ---
HPI - Abdominal Pain General Chief Complaint: Abdominal Pain Stated Complaint: Abd pain Time Seen by Provider: 11/25/24 09:22 Source: patient Mode of arrival: EMS Limitations: no limitations History of Present Illness HPI narrative: This is a 74 years old the patient with a history of diabetes, morbid obesity, presented to emergency department via ambulance with a chief complaint of upper abdominal pain. Pain is localized in the epigastric area denies any radiation of the pain she states that she vomited x1. She lives with a daughter and granddaughters and everybody has been ill in the house with gastroenteritis MD elicited complaint: abdominal pain Pertinent past history: other (Diabetes obesity) Onset (ago): day(s) (1) Pain Consistency: constant Severity: mild Quality: cramping Radiation: epigastric Migration to: no migration Exacerbating factors: nothing Relieving factors: nothing Associated symptoms: denies other symptoms Related Data Home Medications ?Medication ?Instructions ?Recorded ?Confirmed insulin glargine 100 unit/mL 60 unit subcut DAILY 07/22/20 10/06/24 subcutaneous solution (Lantus U-100 Insulin) atorvastatin 80 mg tablet 80 mg PO BEDTIME 04/07/21 10/06/24 dapagliflozin propanediol 10 mg 10 mg PO DAILY 10/25/23 08/02/24 tablet (Farxiga) duloxetine 20 mg capsule,delayed 20 mg PO DAILY 03/18/24 08/02/24 release omeprazole 40 mg capsule,delayed 40 mg PO DAILY@0630 03/18/24 10/06/24 release aspirin 81 mg tablet,delayed 81 mg PO BEDTIME 06/11/24 10/06/24 release gabapentin 100 mg capsule 100 mg PO TID 06/11/24 10/06/24 oxycodone-acetaminophen 5 mg-325 1 tab PO Q6H PRN pain 06/11/24 10/06/24 mg tablet dulaglutide 0.75 mg/0.5 mL 0.75 mg subcut QWEEK 10/06/24 10/06/24 [facility] ketotifen fumarate 0.025 % (0.035 1 drp ophthalmic (eye) Q12H PRN 10/06/24 10/06/24 %) eye drops (Eye Itch Relief) Eye Irritation levothyroxine 75 mcg tablet 75 mcg PO QAM 10/06/24 10/06/24 trazodone 150 mg tablet 150 mg PO BEDTIME 10/06/24 10/06/24 Previous Rx's ?Medication ?Instructions ?Recorded apixaban 5 mg tablet (Eliquis) 5 mg PO BID #60 tabs 11/03/23 amlodipine 5 mg tablet 5 mg PO DAILY #30 tabs 06/20/24 torsemide 20 mg tablet 20 mg PO DAILY #30 tabs 06/20/24 Allergies Allergy/AdvReac Type Severity Reaction Status Date / Time codeine [CODEINE] Allergy Intermediate HALLUCINATI Verified 11/25/24 09:31 ONS Review of Systems Reports system reviewed and no additional complaints, except as documented Respiratory: Reports no additional respiratory complaints Gastrointestinal: Reports as per [facility] Past Medical History Attestation statement: The following information was validated with the patient. Medical History CKD (chronic kidney disease) CKD stage 3 due to type 2 diabetes mellitus Leg abrasion Abuse of non-prescription analgesics Type 2 diabetes mellitus with unspecified complications Other and unspecified hyperlipidemia Essential hypertension Atherosclerotic cardiovascular disease Urgency incontinence Osteoporosis Arthritis Asthma Hypertension Fibromyalgia Diabetes mellitus Surgical History History of hernia repair Social History Social History Household Members: None Household Members Other:: friend Housing: Apartment Do you presently have visiting nurse or other home services: Yes Unable to assess alcohol history related to: Refusing to respond Alcohol intake: never 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 Patient Tobacco Use Status: Never used Tobacco Advance Directives Date on File: 04/07/24 service: No Sexual orientation: Straight/Heterosexual Physical Exam ED Vital Signs: Vital Signs - 24 hr 11/25/24 09:30 11/25/24 11:39 11/25/24 14:07 Temperature 98.1 F 97.8 F 98.2 F Pulse Rate 68 69 72 Respiratory Rate 22 H 16 20 Blood Pressure 140/63 H 118/36 L 126/50 L Pulse Oximetry 98 95 99 Oxygen Delivery Method Room Air Room Air Room Air 11/25/24 14:13 Temperature 98.2 F Pulse Rate 72 Respiratory Rate 20 Blood Pressure 126/50 L Pulse Oximetry 99 Oxygen Delivery Method Room Air BMI result Body Mass Index 45.2 No acute disease Const General: cooperative Orientation/consciousness: patient oriented x3 Limitations: no limitations HENMT Head: Yes normal to inspection Neck Neck: Yes normal visual inspection and Yes full ROM Resp Effort & Inspection: normal respiratory effort and able to speak in complete sentences Cardio Jugular venous distension: no JVD Rate: regular rate Rhythm: regular rhythm GI Other: Tenderness in the epigastric area abdomen is obese but no guarding no rebound Skin General skin exam: no rashes or lesions noted and elasticity normal Neuro General: patient oriented x3 Course Reevaluation(s) Reevaluation #1: Labs are within normal limit remain stable afebrile not toxic at this point we are waiting for the result of the CAT scan. Time: 13:24 Reevaluation #2: CT scan reviewed not acute disease at this point I think the patient can be safely discharged home Time: 13:32 Medical Decision Making Medical Decision Making [facility] Narrative: Patient is here with a upper abdominal pain nausea vomiting. We will establish an IV administer IV fluids antiemetic Differential Diagnosis Differential Diagnoses: The differential diagnosis associated with the presentation includes Gastritis/peptic ulcer disease/gastroenteritis Lab Data [facility] Lab Attestation statement: I reviewed the patient's lab results. 11/25/24 09:44 11/25/24 10:07 Labs: Lab Results 11/25/24 11/25/24 Range/Units 09:44 10:07 WBC 8.0 (4.8-10.8) X10*3/uL RBC 4.10 L (4.20-5.50) X10*6/uL Hgb 8.8 L (12.0-16.0) g/dl Hct 30.2 L (37.0-47.0) % MCV 73.7 L (80.0-98.0) fL MCH 21.5 L (27.0-33.0) pg MCHC 29.1 L (31.0-35.0) g/dl RDW 15.6 (11.0-16.0) % Plt Count 183 (160-400) X10*3/uL MPV 10.3 (9.4-12.3) fL Immature Gran % (Auto) 0.3 (0.0-0.4) % Neut % (Auto) 84.3 H (45-73) % Lymph % (Auto) 7.6 L (20-40) % Centre % (Auto) 6.1 (2-11) % Eos % (Auto) 1.4 (0-4) % Baso % (Auto) 0.3 (0-2) % Lymph # (Auto) 0.6 L (1.2-4.9) X10*3/uL Centre # (Auto) 0.5 (0.1-1.2) X10*3/uL Eos # (Auto) 0.1 (0.0-0.4) X10*3/uL Baso # (Auto) 0.0 (0.0-0.2) X10*3/uL Abs Immat Gran (auto) 0.02 (0.00-0.03) X10*3/uL Absolute Neuts (auto) 6.7 (2.0-8.3) x10*3/uL Absolute Nucleated RBC 0.000 (0.0-0.012) X10*3/uL Nucleated RBC % (auto) 0.0 (0.0-0.2) /100WBC Sodium 140 (135-145) mmol/L Potassium 4.0 (3.3-5.1) mmol/L Chloride 98 (96-108) mmol/L Carbon Dioxide 33 H (22-29) mmol/L Anion Gap 13 (12-20) BUN 23 H (9-16) mg/dL Creatinine 1.55 H (0.5-1.4) mg/dL Estim Creat Clear Calc 35.7 Estimated GFR 33 Random Glucose 283 H (60-115) mg/dL Calcium 8.2 L (8.4-10.2) mg/dL Total Bilirubin 0.3 (0.0-1.0) mg/dL AST 20 (5-31) U/L ALT 7 (0-31) U/L Alkaline Phosphatase 62 (39-117) U/L Total Protein 6.4 L (6.5-8.0) g/dL Albumin 3.2 L (3.5-5.0) g/dL Lipase 28 (8-78) U/L Independent Interpretation I performed an independent interpretation of an: CT Scan Interpretation: NAD Radiology Impression Discussion of test interpretation with radiology: I have reviewed the radiologist's reading. Radiologist Impression: No consolidation or effusion. Unremarkable solid organs. There are gallstones. The gallbladder is otherwise unremarkable. There is no biliary tract dilatation. No urolithiasis. No bowel obstruction, pneumoperitoneum, or pneumatosis. There are calcified uterine leiomyomata. Pelvic contents otherwise unremarkable. The appendix is not visualized with no imaging evidence of appendicitis. No acute fracture. IMPRESSION: No acute findings. This document has been electronically signed by: Garth Regan MD on 11/25/2024 13:28:24 Dictated By: Garth Regan MD Signed By: <Electronically signed by Garth Regan MD in OV> 11/25/24 1329 Independent Historian granddaughter External Record Review External record reviewed: Inpatient record Chronic Conditions Patient?s care impacted by: Diabetes Medications Administered Discontinued Medications Generic Name Dose Route Start Last Admin Trade Name Freq PRN Reason Stop Dose Admin Diazepam 2.5 mg 11/25/24 10:10 11/25/24 10:13 Diazepam 10 Mg/2 Ml Cartridge IVPUSH 11/25/24 10:11 2.5 mg STAT STA Administration Diazepam 2.5 mg 11/25/24 11:20 11/25/24 11:26 Diazepam 10 Mg/2 Ml Cartridge IVPUSH 11/25/24 11:21 2.5 mg STAT STA Administration Sodium Chloride 1,000 mls @ 999 mls/hr 11/25/24 09:45 11/25/24 11:50 Ns IVCONT 11/25/24 10:45 Infused .Q1H1M JULIANNE Infusion Lorazepam 1 mg 11/25/24 09:43 11/25/24 09:50 Lorazepam 1 Mg Tablet PO 11/25/24 09:44 1 mg ONCE ONE Administration Ondansetron HCl 4 mg 11/25/24 12:37 11/25/24 12:40 Ondansetron Hcl 4 Mg/2 Ml Vial IVPUSH 11/25/24 12:38 4 mg ONCE ONE Administration Oxycodone HCl 5 mg 11/25/24 13:23 11/25/24 13:42 Oxycodone Hcl Immed Release 5 Mg Tablet PO 11/25/24 13:24 5 mg ONCE ONE Administration Pantoprazole Sodium 40 mg 11/25/24 09:41 11/25/24 09:50 Pantoprazole Sodium 40 Mg/10 Ml Vial IVPUSH 11/25/24 09:42 40 mg ONCE ONE Administration Discharge Plan Discharge Clinical Impression: Anxiety Abdominal pain Qualifiers: Abdominal location: generalized Qualified Code(s): R10.84 - Generalized abdominal pain Patient Disposition: Home, Self-Care Instructions: Abdominal Pain (ED), Anxiety (ED) Additional Instructions: Follow-up with your primary care physician your CAT scan was normal your blood work was normal call your doctor on Wednesday and make an appointment Prescriptions: No Action insulin glargine [Lantus U-100 Insulin] 100 unit/mL solution 60 unit subcut DAILY atorvastatin 80 mg tablet 80 mg PO BEDTIME dapagliflozin propanediol [Farxiga] 10 mg tablet 10 mg PO DAILY Eliquis 5 mg Tablet 5 mg PO BID Qty: 60 0RF omeprazole 40 mg capsule,delayed release(DR/EC) 40 mg PO DAILY@0630 duloxetine 20 mg capsule,delayed release(DR/EC) 20 mg PO DAILY aspirin 81 mg tablet,delayed release (DR/EC) 81 mg PO BEDTIME oxycodone-acetaminophen 5-325 mg tablet 1 tab PO Q6H PRN (Reason: pain) gabapentin 100 mg capsule 100 mg PO TID torsemide 20 mg tablet 20 mg PO DAILY Qty: 30 0RF amlodipine 5 mg Tablet 5 mg PO DAILY Qty: 30 0RF Protocol: Hold for SBP< HOLD for SBP < : 90 ketotifen fumarate [Eye Itch Relief] 0.025 % (0.035 %) drops 1 drp ophthalmic (eye) Q12H PRN (Reason: Eye Irritation) levothyroxine 75 mcg tablet 75 mcg PO QAM trazodone 150 mg tablet 150 mg PO BEDTIME Trulicity 0.75 mg/0.5 mL pen injector 0.75 mg subcut QWEEK Referrals: Physician,Unknown J [Primary Care Provider] - 3 days Interventions: ED Discharge Assessment Last Done: 11/25/24 14:13 Discharge Date/Time: 11/25/24 14:22 Print Language: Welsh
[2024-11-25 09:47] LABS: MANUAL DIFF FLAG NO
[2024-11-25 09:48] LABS: Basophils Percent Auto 0.3 % (0-2); Eosinophils Absolute Auto 0.1 X10*3/uL (0.0-0.4); Eosinophils Percent Auto 1.4 % (0-4); Hematocrit 30.2 % (37.0-47.0); Hemoglobin 8.8 g/dl (12.0-16.0); Imm Gran Abs Auto 0.02 X10*3/uL (0.00-0.03); Imm Gran Pct Auto 0.3 % (0.0-0.4); Lymphocytes Absolute Auto 0.6 X10*3/uL (1.2-4.9); Lymphocytes Percent Auto 7.6 % (20-40); Mean Corpuscular HGB Conc 29.1 g/dl (31.0-35.0); Mean Corpuscular Hemoglobin 21.5 pg (27.0-33.0); Mean Corpuscular Volume 73.7 fL (80.0-98.0); Mean Platelet Volume 10.3 fL (9.4-12.3); Monocytes Absolute Auto 0.5 X10*3/uL (0.1-1.2); Monocytes Percent Auto 6.1 % (2-11); Neutrophils Absolute Auto 6.7 x10*3/uL (2.0-8.3); Neutrophils Percent Auto 84.3 % (45-73); Platelet Count 183 X10*3/uL (160-400); Red Cell Distribution Width 15.6 % (11.0-16.0)
--- OUTSIDE RECORDS SUMMARY | 2024-11-25 09:48 | XMS_ITS | Encounter Summary ---
Author Organization [employer] Address [address] [facility] 7t [place] [address] Care Team Providers Care Flat Surfacer Jewel Name Role Phone Amanda Watkins MD Primary Care Provide r Hiro Ram PERINATAL TECHNICIAN Unavailable Unavailable Raad Arias PharmD Unavailable [phone] Reason for Visit * Reason Comments Med Refill Encounter Details Date Type Department Care Team (Late st Contact Info) Description 10/10/2024 Refill [facility] [address] [place] [address] Amanda Watkins MD [address] [place] [address] Social History Tobacco Use Types Packs/Day Years [...] Care Team (Late st Contact Info) Description 11/28/2024 1:45 PM EDT Office Visit [facility] [address] [place] [address] Amanda Watkins MD [address] [place] [address] 12/20/2024 3:30 PM EDT Telemedicine [facility] [address] [place] [address] Raad Arias, PharmD [address] [place] [address] documented as of this encounter Visit Diagnoses Not on filedocumented in this encounter Additional Health Concerns Assessment Noted Time PHQ-9 Depression Total Score: 0 09/01/19 25 1:18 PM EST documented as of this encounter Care Teams Flat Surfacer Jewel Relationship Specialty Start Date End Date Amanda Watkins MD [address] [place] [phone] PCP - General Family Medicine 04/07/19 Hiro Ram FNP [address] [place], [place] [address] [address] Nurse Practitioner Family Medicine 07/06/23 Raad Arias, TheaD [address] [place] [address] Pharmacist Internal Medicine 10/19/24 Ja [facility] 08/10/24 documented as of this encounter
--- OUTSIDE RECORDS SUMMARY | 2024-11-25 09:48 | XMS_ITS | Encounter Summary ---
Author Organization [employer] Address [address] [facility] 7t [place] [address] Care Team Providers Care Airframe And Power Plant Mechanic Name Role Phone Amanda Watkins MD Primary Care Provide r Hiro Ram Unavailable Unavailable Raad Arias PharmD Unavailable [phone] Reason for Visit * Reason Onset Date Comments Durable Medical Equipment 07/26/2024 Encounter Details Date Type Department Care Team (Late st Contact Info) Description 07/26/2024 Telephone [facility] [address] [place] [address] Amanda Watkins MD [address] [place] [address] Durable Medical Equipment Social History Tobacco Use [...] Daughter calling in regards to DME stating [facility] [employer] supply stating they do not take pt's insurance and was advised to have equipment send to another supply pharmacy. DME: Wipes Bed Pads Adult Diapers documented in this encounter Plan of Treatment Upcoming Encounters Date Type Department Care Team (Late st Contact Info) Description 11/28/2024 1:45 PM EDT Office Visit [facility] [address] [place] [phone] Amanda Watkins MD [address] [place] [phone] 12/20/2024 3:30 PM EDT Telemedicine [facility] [address] [place] [address] [phone] Raad Arias, PharmD [address] [place] [phone] documented as of this encounter Visit Diagnoses Not on filedocumented in this encounter Additional Health Concerns Assessment Noted Time PHQ-9 Depression Total Score: 10 024 3:23 PM EDT documented as of this encounter Care Teams Airframe And Power Plant Mechanic Relationship Specialty Start Date End Date Amanda Watkins MD [address] [place] [address] PCP - General Family Medicine 04/07/19 Hiro Ram FNP [address] [place] [address] Nurse Practitioner Family Medicine 07/06/23 Raad Arias, TheaD [address] [place] [address] Pharmacist Internal Medicine 10/19/24 [facility] 07/03/22 08/16/24 Ja A 08/10/24 documented as of this encounter
--- OUTSIDE RECORDS SUMMARY | 2024-11-25 09:48 | XMS_ITS | Encounter Summary ---
Author Organization [employer] Address [address] [facility] 7t [place] [address] Care Team Providers Care Quality Auditor Name Role Phone Amanda Watkins MD Primary Care Provide r Hiro Ram RECTIFYING OPERATOR Unavailable Unavailable Raad Arias PharmD Unavailable [phone] Reason for Visit * Reason Comments Med Refill Encounter Details Date Type Department Care Team (Late st Contact Info) Description 11/25/2024 Refill [facility] [address] [place] [address] Amanda Watkins MD [address] [place] [address] Social History Tobacco Use Types Packs/Day Years [...] Description 11/28/2024 1:45 PM EDT Office Visit [facility] [address] [place] [phone] Amanda Watkins MD [address] [place] [address] 12/20/2024 3:30 PM EDT Telemedicine [facility] [address] [place] [address] Raad Arias, PharmD [address] [place] [address] documented as of this encounter Visit Diagnoses Not on filedocumented in this encounter Additional Health Concerns Assessment Noted Time PHQ-9 Depression Total Score: 0 09/01/19 25 1:18 PM EST documented as of this encounter Care Teams Quality Auditor Relationship Specialty Start Date End Date Amanda Watkins MD [address] [place] [phone] PCP - General Family Medicine 04/07/19 Hiro Ram FNP [address] [place] [address] [place] [address] Nurse Practitioner Family Medicine 07/06/23 Raad Arias, PharmD [address] [facility] [place] [address] Pharmacist Internal Medicine 10/19/24 Ja [facility] 08/10/24 documented as of this encounter
--- OUTSIDE RECORDS SUMMARY | 2024-11-25 09:48 | XMS_ITS | Encounter Summary ---
Author Organization [facility] Address [address] [facility] 7t [place] [address] Care Team Providers Care Utilization Reviewer Name Role Phone Amanda Watkins MD Primary Care Provide r Hiro Ram MACHINERY ENGINEER Unavailable Unavailable Raad Arias PharmD Unavailable [phone] Reason for Visit * Reason Comments Med Refill Encounter Details Date Type Department Care Team (Late st Contact Info) Description 07/05/[address] [facility] MED[facility]INE [address] [place] [address] Amanda Watkins MD [address] [place] [address] Social History Tobacco Use Types Packs/Day Years [...] Description 11/28/2024 1:45 PM EDT Office Visit [facility] MED[facility]INE [address] [place] [address] Amanda Watkins MD [address] [place] [phone] 12/20/2024 3:30 PM EDT Telemedicine [facility] MED[facility]INE [address] [place] [phone] Raad Arias, Carlos [address] [place] [phone] documented as of this encounter Visit Diagnoses Not on filedocumented in this encounter Additional Health Concerns Assessment Noted Time PHQ-9 Depression Total Score: 10 024 3:23 PM EDT documented as of this encounter Care Teams Utilization Reviewer Relationship Specialty Start Date End Date Amanda Watkins MD [address] [place] [phone] PCP - General Family Medicine 04/07/19 Hiro Ram FNP [address] [place] [address] Nurse Practitioner Family Medicine 07/06/23 Raad Arias, PharmD 230 [place] [address] Pharmacist Internal Medicine 10/19/24 [facility] 07/03/22 08/16/24 Ja [facility] 08/10/24 documented as of this encounter
--- OUTSIDE RECORDS SUMMARY | 2024-11-25 09:48 | XMS_ITS | Encounter Summary ---
Author Organization [employer] Address [address] [facility] 7t [place] [address] Care Team Providers Care Linen Aide Name Role Phone Amanda Watkins MD Primary Care Provide r Hiro Ram Unavailable Unavailable Raad Arias PharmD Unavailable Reason for Visit * Reason Onset Date Comments Durable Medical Equipment 05/11/2024 Encounter Details Date Type Department Care Team (Late st Contact Info) Description 05/11/2024 Telephone [facility] MED[facility]INE [address] [place] [address] Amanda Watkins MD [address] [place] [address] Durable Medical Equipment Social History Tobacco Use [...] Description 11/28/2024 1:45 PM EDT Office Visit [facility] [address] [place] [phone] Amanda Watkins MD [address] [place] [address] 12/20/2024 3:30 PM EDT Telemedicine [facility] [address] [place] [address] [phone] Raad Arias, PharmD [address] [place] [address] documented as of this encounter Visit Diagnoses Not on filedocumented in this encounter Additional Health Concerns Assessment Noted Time PHQ-9 Depression Total Score: 10 024 3:23 PM EDT documented as of this encounter Care Teams Linen Aide Relationship Specialty Start Date End Date Amanda Watkins MD [address] [place] [address] PCP - General Family Medicine 04/07/19 Hiro Ram FNP [address] [place] [address] Nurse Practitioner Family Medicine 07/06/23 Raad Arias, TheaD [address] [place] [address] Pharmacist Internal Medicine 10/19/24 [facility] 07/03/22 08/16/24 Ja A 08/10/24 documented as of this encounter
--- OUTSIDE RECORDS SUMMARY | 2024-11-25 09:48 | XMS_ITS | Clinical Summary ---
Author Organization [employer] Address [address] [place] [address] Care Team Providers Care Church Supervisor Name Role Phone Amanda Watkins MD Primary Care Provide r Hiro Ram RADIOLOGICAL TECHNICIAN Unavailable Unavailable Raad Arias PharmD Unavailable Allergies Active Allergy Reactions Criticality Noted [...] 15 MINUTES 100 tablet 1 023 Active Alcohol Swabs (Alcohol Prep) 70 % pads USE FOUR TIMES DAILY DIRECTED 100 each 11 024 Active aspirin (Aspirin Low Dose) 81 MG EC tabletIndication s:Atrial fibrillation, unspecified type (CMS/HCC) Take 1 tablet (81 mg) by mouth at bedtime. 90 tablet 3 024 Active traZODone (Desyrel) 150 MG tabletIndication s:Recurrent major depressive episodes, mild (CMS/HCC) Take 1 tablet (150 mg) by mouth at bedtime. 90 tablet 2 024 Active Oyster Shell Calcium 500 MG tablet TAKE 1 TABLET BY MOUTH TWICE DAILY IN THE MORNING AND IN THE EVENING 180 tablet 1 024 Active FREESTYLE LITE test stripIndications :Type 2 diabetes mellitus with hyperglycemia, with long-term current use of insulin ([facility]) Use to test blood sugar 3 times daily 100 each 12 024 2024 Active Lancets miscIndications: Type 2 diabetes mellitus with hyperglycemia, with long-term current use of insulin ([facility]) Use to test blood sugar 3 times daily 100 each 2 024 Active Blood Glucose Monitoring Suppl (FreeStyle Lowell Lite) w/Device kitIndications:T ype 2 diabetes mellitus with hyperglycemia, with long-term current use of insulin ([facility]) Use to test blood sugar 3 times daily 1 kit Active Continuous Glucose Sensor (FreeStyle Mickey 2 Sensor) miscIndications: Type 2 diabetes mellitus with other specified complication, with long-term current use of insulin ([facility]) Apply 1 sensor every 14 days 2 each 2 024 Active amLODIPine (Norvasc) 5 MG tablet Take 1 tablet (5 mg) by mouth Once per day. 30 tablet 3 025 Active torsemide (Demadex) 20 MG tablet Take 1 tablet (20 mg) by mouth Once per day. 30 tablet 3 025 Active Nyamyc 706854 UNIT/GM powder Apply 1 Application. topically 2 times daily. Active Continuous Glucose Welder Setter Resistance Machine (FreeStyle Mickey 2 [place]) deviceIndication s:Type 2 diabetes mellitus with other specified complication, with long-term current use of insulin ([facility]) Scan sensor every 8 hours 1 each 025 Active calamine-zinc oxide 8-8 % lotion APPLY TO THE AFFECTED AREA(S) TOPICALLY TWICE DAILY NEEDED FOR ITCHING Active loratadine (Claritin) 10 MG tablet Take 1 tablet by mouth Once per day. Active Lokelma 10 g packet DISSOLVE 1 PACKET DIRECTED AND TAKE BY MOUTH EVERY WEDNESDAY, WEDNESDAY, AND WEDNESDAY Active acetaminophen (Acetaminophen 8 Hour) 650 MG ER tablet Take 650 mg by mouth every 8 (eight) hours if needed for mild pain. Do not crush, chew, or split. Active Ketotifen Fumarate 0.035 % solutionIndicati ons:Allergic conjunctivitis of both eyes Administer 1 drop into affected eye(s) every 12 (twelve) hours if needed (if needed). 10 mL 1 025 Active levothyroxine (Synthroid, Levoxyl) 75 MCG tabletIndication s:Acquired hypothyroidism Take 1 tablet (75 mcg) by mouth in the morning. 30 tablet 2 025 Active omeprazole (PriLOSEC) [address] capsuleIndicatio ns:Epigastric pain TAKE 1 CAPSULE BY MOUTH EVERY MORNING BEFORE BREAKFAST. DO NOT BREAK, CRUSH, DISSOLVE OR CHEW 30 capsule 11 025 Active gabapentin (Neurontin) 100 MG capsule TAKE 1 CAPSULE BY MOUTH AT NOON, EVENING, AND BEDTIME 90 capsule 3 025 Active melatonin 3 MG tablet Take 1 tablet (3 mg) by mouth at bedtime. 60 tablet 1 025 Active DULoxetine (Cymbalta) [address] capsule Take 1 capsule (20 mg) by mouth Once per day. 30 capsule 025 Active hydrOXYzine HCl (Atarax) 25 MG tablet Take 1 tablet (25 mg) by mouth every 8 (eight) hours if needed for anxiety. 90 tablet 025 Active Eliquis 5 MG tabletIndication s:Atrial fibrillation, unspecified type (CMS/HCC) TAKE 1 TABLET BY MOUTH TWICE DAILY IN THE MORNING AND AT BEDTIME 60 tablet 2 025 Active atorvastatin (Lipitor) 80 MG tablet TAKE 1 TABLET BY MOUTH EVERY EVENING 90 tablet 1 025 Active insulin degludec (Tresiba FlexTouch) 200 UNIT/ML injectionIndicat ions:Type 2 diabetes mellitus with hyperglycemia, with long-term current use of insulin (CMS/HCC) Inject 64 units under the skin daily 18 mL 5 Active Dulaglutide (Trulicity) 1.5 MG/0.5ML solution auto-injectorInd ications:Type 2 diabetes mellitus with hyperglycemia, with long-term current use of insulin ([facility]) Inject 1.5 mg under the skin 1 (one) time per week. 2 mL 5 Active pen needle 32G x 4 mm miscIndications: Type 2 diabetes mellitus with hyperglycemia, with long-term current use of insulin ([facility]) Use daily with insulin 100 each 3 025 2025 Active oxyCODONE-acetam inophen (Percocet) 5-325 MG tabletIndication s:Chronic bilateral low back pain with bilateral sciatica TAKE 1 TABLET BY MOUTH EVERY 6 HOURS NEEDED FOR SEVERE PAIN 28 tablet Active atorvastatin (Lipitor) 80 MG tablet TAKE 1 TABLET BY MOUTH EVERY EVENING 90 tablet 1 024 2024 Discontinued Eliquis 5 MG tabletIndication s:Atrial fibrillation, unspecified type ([facility]) TAKE 1 TABLET BY MOUTH TWICE DAILY IN THE MORNING AND IN THE EVENING 60 tablet 2 024 2024 Discontinued Dulaglutide (Trulicity) 0.75 MG/0.5ML solution auto-injectorInd ications:Type 2 diabetes mellitus with hyperglycemia, with long-term current use of insulin ([facility]) Inject 0.75 mg under the skin 1 (one) time per week. 2 mL 2 025 2024 Discontinued(D ose adjustment) Lantus 100 UNIT/ML injectionIndicat ions:Type 2 diabetes mellitus with other specified complication ([facility]) INJECT 60 UNITS SUBCUTANEOUSLY EVERY MORNING 10 mL 2 025 2024 Discontinued(A lternate therapy) insulin syringe-needle U-100 (UltiCare Insulin Syringe) 31G X 5/16 1 mL miscIndications: Type 2 diabetes mellitus with other specified complication, with long-term current use of insulin ([facility]) USE DAILY WITH INSULIN 100 each 11 025 2024 Discontinued(A lternate therapy) oxyCODONE-acetam inophen (Percocet) 5-325 MG tabletIndication s:Chronic bilateral low back pain with bilateral sciatica Take 1 tablet by mouth every 6 (six) hours if needed for severe pain for up to 7 days. 28 tablet 025 2024 Discontinued Active Problems Problem Noted [...] Assessment & Plan (09/14/2024 6:46 PM EST): Roving Sizer referral done today I advised not to [...] medications every day I advised low-sodium diet Roving Sizer referral done today I advised to monitor [...] retiring, patient will be transferred to new [facility] psychiatric provider. Patient is aware that appointments will be via televisit. Any issues or concerns contact [facility]. 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 - Continue current medications, I can not [...] Encounters Date Type Department Care Team Description 11/25/2024 Refill [facility] MEDICINE [address] [place] [address] Amanda Watkins MD 11/24/2024 Telephone [facility] MEDICINE [address] [place] [address] Amanda Watkins MD Chart Prep 11/10/2024 Refill [facility] MEDICINE [address] [place], [place] [phone] Amanda Watkins MD Chronic bilateral low back pain with bilateral sciatica 11/06/2024 Telephone [facility] MEDICINE [address] [place] [address] Amanda Watkins MD Durable Medical Equipment 11/01/2024 2:00 PM EDT Telemedicine [facility] MEDICINE [address] [place] [address] Raad Arias, Carlos Type 2 diabetes mellitus with hyperglycemia, with long-term current use of insulin ([facility]) (Primary Dx) 11/01/2024 Travel 11/01/2024 Refill [facility] MEDICINE [address] [place] [address] Amanda Watkins MD 10/27/2024 Refill [facility] MEDICINE [address] [place] [address] Amanda Watkins MD Atrial fibrillation, unspecified type ([facility]) 10/26/2024 Refill [facility] MEDICINE [address] [place] [address] Amanda Watkins MD Chronic bilateral low back pain with bilateral sciatica (Primary Dx) 10/19/2024 Refill [facility] MEDICINE [address] [place] [address] Amanda Watkins MD 10/18/2024 Travel 10/16/2024 Refill [facility] [address] [place] [address] Amanda Watkins MD Chronic bilateral low back pain with bilateral sciatica 10/11/2024 Telephone [facility] MEDICINE [address] [place] [address] Amanda Watkins MD Home Care Delivered (Adult size brief, large disposable underpad, wipes icon softpack) 10/10/2024 Refill [facility] [address] [place] [address] Amanda Watkins MD 10/10/2024 Refill [facility] [address] [place] [address] Amanda Watkins MD 10/04/2024 Refill [facility] [address] [place] [address] Ann Kulkarni DO 10/04/2024 Refill [facility] [address] [place] [address] Amanda Watkins MD Epigastric pain; Type 2 diabetes mellitus with other specified complication, with long-term current use of insulin ([facility]) 09/27/2024 Refill [facility] MEDICINE [address] [place] [phone] Shad AnnDO 09/26/2024 Refill [facility] [address] [place] [address] Amanda Watkins MD Chronic bilateral low back pain with bilateral sciatica 09/24/2024 Refill [facility] MEDICINE [address] [place] [address] Amanda Watkins MD Type 2 diabetes mellitus with other specified complication ([facility]) 09/22/2024 Telephone [facility] MEDICINE [address] [place] [phone] Amanda Watkins MD Medication Question 09/14/2024 11:00 AM EST Telemedicine [facility] MEDICINE [address] [place] [phone] Vilma Gilbert PharmD Type 2 diabetes mellitus with hyperglycemia, with long-term current use of insulin ([facility]) (Primary Dx); Primary hypertension; Stage 3b chronic kidney disease ([facility]) 09/07/2024 Telephone [facility] MEDICINE [address] [place] [phone] Kayley Alanis, PHILLIP AIRPLANE COVER MAKER Renewal cancelled at check in time 09/07/2024 Telephone [facility] MEDICINE [address] [place] [phone] Alie Tamez, SILAS nutrition appt request 09/06/2024 Telephone [facility] [address], [place] [phone] Waldemar Vaughn MD Results 09/06/2024 Orders Only [facility] [address] [place] [address] Waldemar Vaughn MD 09/04/2024 Telephone [facility] MEDICINE [address] [place] [phone] Temitope Natarajan, PHILLIP NTTS 09/01/2024 1:00 PM EST Office Visit [address] [address] Amanda Watkins MD Type 2 diabetes mellitus with hyperglycemia, with long-term current use of insulin ([facility]) (Primary Dx); Chronic diastolic congestive heart failure ([facility]); Acquired hypothyroidism; Allergic conjunctivitis of both eyes; Other constipation; Essential (primary) hypertension 09/01/2024 Telephone [facility] [address], [place] [phone] Miguel Simmons FNP Paperhanger Supervisor Documentation 09/01/2024 Orders Only [address] [phone] Amanda Watkins MD 09/01/2024 Travel 08/31/[address] [phone] Amadna Watkins MD Durable Medical Equipment (L&C Form: Briefs and Underpads) 08/31/[address] [phone] Kayley Alanis RN AIRPLANE COVER MAKER Forms from Last 3 Months Immunizations Name Administration [...] Description 11/28/2024 1:45 PM EDT Office Visit [facility] MEDICINE [address] [place] [address] Amanda Watkins MD [address] [place] [address] 12/20/2024 3:30 PM EDT Telemedicine [facility] MEDICINE [address] [place], [place] [phone] Raad Arias, PharmD [address] [place], [place] [phone] Health Maintenance Due Date Last Done Comments [...] Screening 08/04/2022 08/04/2021 COVID-19 Vaccine ( - 2023- season) 2024 07/24/2021, 12/11/2020, 10/03/2020 RSV Patients [...] with long-term current use of insulin (CMS/HCC) POCT GLYCATED HEMOGLOBIN, TOTAL Routine 09/01/2024 1:24 PM EST Type 2 diabetes mellitus with hyperglycemia, with long-term current use of insulin (CMS/HCC) POCT GLUCOSE Routine 09/01/2024 1:23 PM EST Type 2 diabetes mellitus with hyperglycemia, with long-term current use of insulin (CMS/HCC) ALBUMIN, RANDOM URINE W/CREATININE Routine 08/04/2021 10:15 AM EST from Last 3 Months or Most Recently Relevant to Health Maintenance Results * (ABNORMAL) TSH W/Reflex to FT4 (09/01/2024 2:09 PM EST) TSH reflex Free T4 30.54(H) 0.32 - 4.0 uIU/mL [facility] Blood Venous blood specimen / Unknown 09/01/2024 2:09 PM EST 09/01/2024 4:09 PM EST Amanda Myers MD LAB BLOOD ORDERABLES Final Result Performing Organization Address City/[facility]/ZIP Co de Phone Number [facility] [address] [place] [phone] * T4, Free (09/01/2024 2:09 PM EST) Free T4 (Free Thyroxine) 0.94 0.71 - 1.85 ng/dL [facility] 09/01/2024 2:09 PM EST 09/01/2024 4:09 PM EST us Amanda Myers MD LAB BLOOD ORDERABLES Final Result Performing Organization Address [facility]/ZIP Co de Phone Number [facility] [address] [place] [phone] * (ABNORMAL) Hemoglobin A1c (09/01/2024 2:09 PM EST) Hemoglobin A1c 11.4(H) <6.0 % [facility] Comment:Hemoglobin A1C Refer ence Range Adults: 4.8 - 6.0 % Non diabetic: < 6.0 % Goal: < 7.0 %Additional Action Suggested: > 8.0 %Note: Hemoglobin A1c results are invalid for patients with abnormal amounts of HbF. Blood transfusions may impact the HbA1c concentration in the patient sample. Estimated Average Glucose 280 mg/dL [facility] Comment:eAG = Estimated ave rage glucose which is %A1C expressed asaverage glucose, using the formula of the [id number] Glucose study (ADAG), Diabetes Care, Vol.31,#8,Mar. 2007 09/01/2024 2:09 PM EST 09/01/2024 4:09 PM EST us Amanda Myers MD LAB BLOOD ORDERABLES Final Result Performing Organization Address [facility] Co de Phone Number [facility] [address] [place], [place] [phone] * (ABNORMAL) Lipid Panel, Standard (09/01/2024 2:09 PM EST) Triglycerides 241(H) <150 mg/dL [facility] Comment:Desirable Triglyceri de: less than 150 mg/dLBorderline High Triglyceride 150-199 mg/dLHigh Triglyceride: 200-499 mg/dLVery High Triglyceride: greater than or equal to 5OO mg/dL Cholesterol 107 <200 mg/dL [facility] Comment:Desirable Cholestero l: less than 200 mg/dLBorderline High Cholesterol: 200-239 mg/dLHigh Cholesterol: greater than 239 mg/dL LDL Cholesterol Calculated 34 <100 mg/dL [facility] Comment:Desirable LDL: less than 100 mg/dLNear Optimal/Above Optimal LDL: 110- 129 mg/dLBorderline High LDL: 130-159 mg/dLHigh LDL: 160-189 mg/dLVery High LDL: greater than or equal to 190 mg/dL HDL Cholesterol 25(L) >40 mg/dL [facility] Comment:Desirable HDL: great er than 40 mg/dL Note: This HDL assay may give artificially low results in patients with liver disease. 09/01/2024 2:09 PM EST 09/01/2024 4:09 PM EST us Amanda Myers MD LAB BLOOD ORDERABLES Final Result Performing Organization Address City/[facility]/ZIP Co de Phone Number [facility] [address] [place] [phone] [phone] * (ABNORMAL) Basic Metabolic Panel (09/01/2024 2:09 PM EST) Sodium 138 135 - 145 mmol/L [facility] Potassium 4.7 3.3 - 5.1 mmol/L [facility] Comment:Slight Hemolysis.Int erpret result with caution. Chloride 96 96 - 108 mmol/L [facility] Carbon Dioxide 33(H) 22 - 29 mmol/L [facility] Anion Gap 14 12 - 20 [facility] Urea Nitrogen (BUN) 32(H) 9 - 16 mg/dL [facility] Creatinine, Serum 1.58(H) 0.5 - 1.4 mg/dL [facility] Estimated Glomerular Filt Rate 32 [facility] Comment:Chronic Kidney Disea se: Estimated GFR < 60 mL/min/[id number] Kidney Disease: Estimated GFR < 15 mL/min/1.73m2 Glucose 434(HH) 60 - 115 mg/dL [facility] Comment:Critical value for t est(GLU): Results called to and readback by: MIGUEL MOY Person calling: ZULEMA Date:09/01/24 Time: 1914 Calcium 9.0 8.4 - 10.2 mg/dL [facility] Blood Venous blood specimen / Unknown 09/01/2024 2:09 PM EST 09/01/2024 4:09 PM EST us Amanda Myers MD LAB BLOOD ORDERABLES Final Result [facility] [address] [place] [address] [phone] * (ABNORMAL) POCT HGB A1C (09/01/2024 1:24 PM EST) Pathologist [facility] Hemoglobin A1C 11.6(A) 4.0 - 6.0 % QC Media Lot # [id number] Lot# Expiration Date [id number] Blood 09/01/2024 1:24 PM EST Amanda Myers [...] EN TER/EDIT ORDERABLES Final Result * (ABNORMAL) ALBUMIN, RANDOM URINE W/CREATININE (08/04/2021 [...] DO LAB URINE ORDERABLES Final R esult [facility] [address] [place] [address], from Last 3 Months or Most Recently Relevant to Health Maintenance Insurance [facility] [employer] (HMO D-SNP) [place] [id number] Care Teams Church Supervisor Relationship Specialty Start Date End Date Amanda Watkins MD [address] [place] [address] PCP - General Family Medicine 04/07/19 Hiro Ram FNP [address] [place] [address] Nurse Practitioner Family Medicine 07/06/23 Raad Arias, TheaD [address] [place] [address] Pharmacist Internal Medicine 10/19/24 [facility] 08/10/24
--- OUTSIDE RECORDS SUMMARY | 2024-11-25 09:48 | XMS_ITS | Encounter Summary ---
Author Organization [employer] Address [address] [facility] [address] [place] [address] Care Team Providers Care Food Mixer Repairer Name Role Phone Amanda Watkins MD Primary Care Provide r Hiro Ram Unavailable Unavailable Raad Arias PharmD Unavailable [phone] Reason for Visit * Reason Comments Med Refill Encounter Details Date Type Department Care Team (Late st Contact Info) Description 11/18/2023 Refill [facility] MEDICINE [address] [place] [address] Hiro Ram FNP Social History Tobacco Use [...] Description 11/28/2024 1:45 PM EDT Office Visit [facility] [address] [place] [phone] Amanda Watkins MD [address] [place] [phone] 12/20/2024 3:30 PM EDT Telemedicine [facility] [address] [place] [phone] Raad Arias, Carlos [address] [place] [phone] documented as of this encounter Visit Diagnoses Not on filedocumented in this encounter Additional Health Concerns Assessment Noted Time PHQ-9 Depression Total Score: 8 07/19/20 23 11:34 AM EST documented as of this encounter Care Teams Food Mixer Repairer Relationship Specialty Start Date End Date Amanda Watkins MD [address] [place] [phone] PCP - General Family Medicine 04/07/19 Hiro Ram FNP [address] [place] [phone] Nurse Practitioner Family Medicine 07/06/23 Raad Arias, PharmD [address] [place] [phone] Pharmacist Internal Medicine 10/19/24 [facility] 07/03/22 08/16/24 Ja [facility] 08/10/24 documented as of this encounter
--- OUTSIDE RECORDS SUMMARY | 2024-11-25 09:48 | XMS_ITS | Encounter Summary ---
Author Organization [email or web address] Address [address] [facility] [address] [place] [address] Care Team Providers Care Two Way Radio Installer Name Role Phone Amanda Watkins MD Primary Care Provide r Hiro Ram HALAL MEAT PACKER Unavailable Unavailable Raad Arias PharmD Unavailable [phone] Encounter Details Date Type Department Care Team (Late st Contact Info) Description 06/27/2024 Orders Only [facility] MEDICINE [address] [place] [address] Amanda Watkins MD [address] [place] [address] Social History Tobacco Use Types Packs/Day Years [...] Description 11/28/2024 1:45 PM EDT Office Visit [facility] MEDICINE [address] [place] [phone] Amanda Watkins MD [address] [place] [address] 12/20/2024 3:30 PM EDT Telemedicine [facility] MED[facility] [address] [place] [phone] Raad Arias, Carlos [address] [place] [phone] documented as of this encounter Visit Diagnoses Not on filedocumented in this encounter Additional Health Concerns Assessment Noted Time PHQ-9 Depression Total Score: 10 024 3:23 PM EDT documented as of this encounter Care Teams Two Way Radio Installer Relationship Specialty Start Date End Date Amanda Watkins MD [address] [place] [phone] PCP - General Family Medicine 04/07/19 Hiro Ram FNP [address] [place] [address] Nurse Practitioner Family Medicine 07/06/23 Raad Arias, PharmD [address] [place] [address] Pharmacist Internal Medicine 10/19/24 [facility] 07/03/22 08/16/24 Ja [facility] 08/10/24 documented as of this encounter
--- OUTSIDE RECORDS SUMMARY | 2024-11-25 09:48 | XMS_ITS | Encounter Summary ---
Author Organization [employer] Address 75 [facility] 7t [place] [address] Care Team Providers Care Leak Hunter Name Role Phone Amanda Watkins MD Primary Care Provide r Hiro Ram CODING ADVISOR Unavailable Unavailable Raad Arias PharmD Unavailable [phone] Reason for Visit * Reason Onset Date Comments Hospital Follow-up 03/23/2024 Encounter Details Date Type Department Care Team (Late st Contact Info) Description 03/23/2024 Telephone [facility] MEDICINE [address] [place] [address] Amanda Watkins MD [address] [place], [place] [phone] Hospital Follow-up Social History Tobacco Use Types [...] from pt requesting a HDF appt. Hospital: [facility] Date of admission: 03/18 Discharge date: 03/21 Diagnosed: Cellulitis documented in this encounter Plan of Treatment Upcoming Encounters Date Type Department Care Team (Late st Contact Info) Description 11/28/2024 1:45 PM EDT Office Visit [facility] MEDICINE [address] [place] [phone] Amanda Watkins MD [address] [place] [address] 12/20/2024 3:30 PM EDT Telemedicine [facility] MEDICINE [address] [place] [phone] Raad Arias, PharmD [address] [place] [address] documented as of this encounter Visit Diagnoses Not on filedocumented in this encounter Additional Health Concerns Assessment Noted Time PHQ-9 Depression Total Score: 10 024 3:23 PM EDT documented as of this encounter Care Teams Leak Hunter Relationship Specialty Start Date End Date Amanda Watkins MD [address] [place] [address] PCP - General Family Medicine 04/07/19 Hiro Ram FNP [address] [place] [address] Nurse Practitioner Family Medicine 07/06/23 Raad Arias, TheaD [address] [place] [address] Pharmacist Internal Medicine 10/19/24 [facility] 07/03/22 08/16/24 Ja A 08/10/24 documented as of this encounter
--- OUTSIDE RECORDS SUMMARY | 2024-11-25 09:48 | XMS_ITS | Encounter Summary ---
Author Organization [employer] Address 75 [facility] 7t [place] [address] Care Team Providers Care Driver Examiner Name Role Phone Amanda Watkins MD Primary Care Provide r Hiro Ram Unavailable Unavailable Raad Arias PharmD Unavailable [phone] Reason for Visit * Reason Onset Date Comments Durable Medical Equipment 11/06/2024 Encounter Details Date Type Department Care Team (Late st Contact Info) Description 11/06/2024 Telephone [facility] MEDICINE [address] [place] [address] Amanda Watkins MD [address] [place] [address] Durable Medical Equipment Social History Tobacco Use [...] encounter Miscellaneous Notes * Telephone Encounter - Laura Brand - 11/06/2024 11:55 AM EDT Tc from pt granddaughter Aby stating pt is requesting DME -pull ups size Xxl -Electric wheelchair (pt currently has manual) documented in this encounter Plan of Treatment Upcoming Encounters Date Type Department Care Team (Late st Contact Info) Description 11/28/2024 1:45 PM EDT Office Visit [facility] MEDICINE [address] [place] [address] Amanda Watkins MD [address] [place] [address] 12/20/2024 3:30 PM EDT Telemedicine [facility] MEDICINE [address] [place] [address] Raad Arias, PharmD [address] [place] [phone] documented as of this encounter Visit Diagnoses Not on filedocumented in this encounter Additional Health Concerns Assessment Noted Time PHQ-9 Depression Total Score: 0 09/01/19 1:18 PM EST documented as of this encounter Care Teams Driver Examiner Relationship Specialty Start Date End Date Amanda Watkins MD [address] [place] [address] PCP - General Family Medicine 04/07/19 Hiro Ram FNP [address] [place] [address] Nurse Practitioner Family Medicine 07/06/23 Raad Arias, TheaD [address] [place] [address] Pharmacist Internal Medicine 10/19/24 [facility] 08/10/24 documented as of this encounter
--- OUTSIDE RECORDS SUMMARY | 2024-11-25 09:48 | XMS_ITS | Encounter Summary ---
Author Organization [employer] Address 75 [facility] 7t [place] [address] Care Team Providers Care State Pilot Name Role Phone Amanda Watkins MD Primary Care Provide r Hiro Ram EMERGENCY PLANNER Unavailable Unavailable Raad Arias PharmD Unavailable [phone] Reason for Visit * Reason Comments Med Refill Encounter Details Date Type Department Care Team (Late st Contact Info) Description 10/16/[address] [facility] MED & PEDS [address] [place] [address] Amanda Watkins MD [address] [place] [address] Chronic bilateral low back pain with bilateral [...] Description 11/28/2024 1:45 PM EDT Office Visit [facility] MEDICINE [address] [place] [address] Amanda Watkins MD [address] [place] [address] 12/20/2024 3:30 PM EDT Telemedicine [facility] MEDICINE [address] [place] [address] [phone] Raad Arias, PharmD [address] [place] [phone] documented as of this encounter Visit Diagnoses Diagnosis Chronic bilateral low back pain with bilateral sciatica documented in this encounter Additional Health Concerns Assessment Noted Time PHQ-9 Depression Total Score: 0 09/01/19 25 1:18 PM EST documented as of this encounter Care Teams State Pilot Relationship Specialty Start Date End Date Amanda Watkins MD [address] [place] [phone] PCP - General Family Medicine 04/07/19 Hiro Ram FNP [address] [place] [address] Nurse Practitioner Family Medicine 07/06/23 Raad Arias, TheaD [address] [place] [address] Pharmacist Internal Medicine 10/19/24 Ja [facility] 08/10/24 documented as of this encounter
--- OUTSIDE RECORDS SUMMARY | 2024-11-25 09:48 | XMS_ITS | Encounter Summary ---
Author Organization [employer] Address 75 [facility] 7t [place] [address] Care Team Providers Care Group Exercise Manager Name Role Phone Amanda Watkins MD Primary Care Provide r Hiro Ram Unavailable Unavailable Raad Arias PharmD Unavailable [phone] Reason for Visit * Reason Comments Med Refill Encounter Details Date Type Department Care Team (Late st Contact Info) Description 09/27/2024 Refill [facility] MEDICINE [address] [place] [address] Ann Kulkarni DO [address] [place] [address] Social History Tobacco Use Types Packs/Day Years [...] Description 11/28/2024 1:45 PM EDT Office Visit [facility] MEDICINE [address] [place] [address] Amanda Watkins MD [address] [place] [address] 12/20/2024 3:30 PM EDT Telemedicine [facility] MED[facility]INE [address] [place] [address] Raad Arias, PharmD [address] [place] [phone] documented as of this encounter Visit Diagnoses Not on filedocumented in this encounter Additional Health Concerns Assessment Noted Time PHQ-9 Depression Total Score: 0 09/01/19 25 1:18 PM EST documented as of this encounter Care Teams Group Exercise Manager Relationship Specialty Start Date End Date Amanda Watkins MD [address] [place] [address] PCP - General Family Medicine 04/07/19 Hiro Ram FNP [address] [place] [address] Nurse Practitioner Family Medicine 07/06/23 Raad Arias, PharmD [address] [place] [address] Pharmacist Internal Medicine 10/19/24 Ja [facility] 08/10/24 documented as of this encounter
--- OUTSIDE RECORDS SUMMARY | 2024-11-25 09:48 | XMS_ITS | Encounter Summary ---
Author Organization [employer] Address 75 [facility] 7t [place] [address] Care Team Providers Care Golf Caddy Name Role Phone Amanda Watkins MD Primary Care Provide r Hiro Ram BOWLING BALL GRADER Unavailable Unavailable Raad Arias PharmD Unavailable [phone] Encounter Details Date Type Department Care Team ([facility] st Contact Info) Description 09/06/2024 Orders Only [facility] CHC MED & PEDS [address], [place] [phone] Waldemar Vaughn MD [address] [place] [address] Social History Tobacco Use Types Packs/Day Years [...] Description 11/28/2024 1:45 PM EDT Office Visit [facility] MEDICINE [address] [place] [address] Amanda Watkins MD [address] [place] [address] 12/20/2024 3:30 PM EDT Telemedicine [facility] MEDICINE [address] [place] [phone] Raad Arias, PharmD [address] [place] [address] documented as of this encounter Visit Diagnoses Not on filedocumented in this encounter Additional Health Concerns Assessment Noted Time PHQ-9 Depression Total Score: 0 09/01/19 25 1:18 PM EST documented as of this encounter Care Teams Golf Caddy Relationship Specialty Start Date End Date Amanda Watkins MD [address] [place] [address] PCP - General Family Medicine 04/07/19 Hiro Ram FNP [address] [place] [address] Nurse Practitioner Family Medicine 07/06/23 Raad Arias, PharmD [address] [place] [address] CORINNE Peres [phone] Pharmacist Internal Medicine 10/19/24 Ja [facility] 08/10/24 documented as of this encounter
--- OUTSIDE RECORDS SUMMARY | 2024-11-25 09:48 | XMS_ITS | Encounter Summary ---
Author Organization [employer] Address 75 [facility] 7t [place] [address] Care Team Providers Care Survey Superintendent Name Role Phone Amanda Watkins MD Primary Care Provide r Hiro Ram COMPUTER DRAFTER Unavailable Unavailable Raad Arias PharmD Unavailable [phone] Reason for Visit * Reason Comments Med Refill Encounter Details Date Type Department Care Team (Late st Contact Info) Description 02/11/2024 Refill [facility] MEDICINE [address] [place] [address] Amanda Watkins MD [address] [place] [address] Type 2 diabetes mellitus with other specified complication, unspecified whether rat exterminator insulin use ([facility]) Social History Tobacco Use Types Packs/Day Years [...] Description 11/28/2024 1:45 PM EDT Office Visit [facility] MEDICINE [address] [place] [address] Amanda Watkins MD [address] [place] [address] 12/20/2024 3:30 PM EDT Telemedicine [facility] MEDICINE [address] [place] [address] [phone] Raad Arias, PharmD [address] [place] [address] documented as of this encounter Visit Diagnoses Diagnosis Type 2 diabetes mellitus with other specified complication, unspecified whether assisted insulin use ([facility]) documented in this encounter Additional Health Concerns Assessment Noted Time PHQ-9 Depression Total Score: 10 024 3:23 PM EDT documented as of this encounter Care Teams Survey Superintendent Relationship Specialty Start Date End Date Amanda Watkins MD [address] [place] [address] PCP - General Family Medicine 04/07/19 Hiro Ram FNP [address] [place] [address] Nurse Practitioner Family Medicine 07/06/23 Raad Arias, TheaD [address] [place] [address] Pharmacist Internal Medicine 10/19/24 [facility] 07/03/22 08/16/24 Ja [facility] 08/10/24 documented as of this encounter
--- OUTSIDE RECORDS SUMMARY | 2024-11-25 09:48 | XMS_ITS | Encounter Summary ---
Author Organization [employer] Address 75 [facility] 7t [place] [address] Care Team Providers Care Director Of Application Development Name Role Phone Amanda Watkins MD Primary Care Provide r Hiro Ram DIVISION OPERATIONS SPECIALIST Unavailable Unavailable Raad Arias PharmD Unavailable [phone] Reason for Visit * Reason Onset Date Comments Chart Prep 11/24/2024 Encounter Details Date Type Department Care Team ([facility] st Contact Info) Description 11/24/2024 Telephone [facility] MEDICINE [address] [place] [address] Amanda Watkins MD [address] [place] [address] Chart Prep Social History Tobacco Use Types Packs/Day Years [...] Telephone Encounter - Arcelia Crocker [place] - 11/24/2024 2:06 PM EDT Chart Prep Labs: not done Images: done Referrals: appointment pending Vaccines due: yes Screenings: colonoscopy, eye exam, and foot exam Overdue care gaps: A1c, Glucose, SBIRT, SDOH, WENDI-7, Oral health screening, and Disability screen documented in this encounter Plan of Treatment Upcoming Encounters Date Type Department Care Team (Late st Contact Info) Description 11/28/2024 1:45 PM EDT Office Visit [facility] MEDICINE [address] [place] [phone] Amanda Watkins MD [address] [place] [address] 12/20/2024 3:30 PM EDT Telemedicine [facility] MEDICINE [address] [place] [address] Raad Arias, PharmD [address] [place] [phone] documented as of this encounter Visit Diagnoses Not on filedocumented in this encounter Additional Health Concerns Assessment Noted Time PHQ-9 Depression Total Score: 0 09/01/19 1:18 PM EST documented as of this encounter Care Teams Director Of Application Development Relationship Specialty Start Date End Date Amanda Watkins MD [address] [place] [phone] PCP - General Family Medicine 04/07/19 Hiro Ram FNP [address] [place] [address] Nurse Practitioner Family Medicine 07/06/23 Raad Arias, TheaD [address] [place] [address] Pharmacist Internal Medicine 10/19/24 Ja [facility] 08/10/24 documented as of this encounter
--- OUTSIDE RECORDS SUMMARY | 2024-11-25 09:48 | XMS_ITS | Encounter Summary ---
Author Organization [employer] Address 75 [facility] 7t [place] [address] Care Team Providers Care Professor Of Communication And Writing Name Role Phone Amadna Watkins MD Primary Care Provide r Hiro Ram DIRECTOR OF REHABILITATIVE SERVICES Unavailable Unavailable Raad Arias PharmD Unavailable [phone] Reason for Visit * Reason Onset Date Comments Hospital Follow-up 04/04/2024 Encounter Details Date Type Department Care Team (Late st Contact Info) Description 04/04/2024 Telephone [facility] MEDICINE [address] [place] [address] Amanda Watkins MD [address] [place], [place] [phone] Hospital Follow-up Social History Tobacco Use Types [...] from pt requesting a HDF appt. [facility] Date of admission: 03/18 Discharge date: 03/21 Diagnosed: Cellulitis documented in this encounter Plan of Treatment Upcoming Encounters Date Type Department Care Team (Late st Contact Info) Description 11/28/2024 1:45 PM EDT Office Visit [facility] MEDICINE [address] [place] [address] Amanda Watkins MD [address] [place] [address] 12/20/2024 3:30 PM EDT Telemedicine [facility] MEDICINE [address] [place] [address] Raad Arias, PharmD [address] [place] [address] documented as of this encounter Visit Diagnoses Not on filedocumented in this encounter Additional Health Concerns Assessment Noted Time PHQ-9 Depression Total Score: 10 024 3:23 PM EDT documented as of this encounter Care Teams Professor Of Communication And Writing Relationship Specialty Start Date End Date Amanda Watkins MD [address] [place] [address] PCP - General Family Medicine 04/07/19 Hiro Ram FNP [address] [place] [address] Nurse Practitioner Family Medicine 07/06/23 Raad Arias, TheaD [address] [place] [phone] Pharmacist Internal Medicine 10/19/24 [facility] 07/03/22 08/16/24 Ja A 08/10/24 documented as of this encounter
--- OUTSIDE RECORDS SUMMARY | 2024-11-25 09:48 | XMS_ITS | Data Portability ---
Author Organization [employer] [place] [employer] Address [address] [place] [address] Care Team Providers Care Wallpaper Hanger Helper Name Role Phone HIM CCA OTHER CRUZ MAURICE Primary Care Provider Assessment Encounter Date Assessment Date Assessment LastModified by Organization Details LastModified Time 02/09/2024 02/09/2024 I provided real -time medical direction via phone for this encounter, and was available for additional phone based assistance as needed. I have reviewed and agree with the Assessment and Plan as documented by the Resident Care Associate. We discussed the diagnostic uncertainty of home [...] to call 911- verbalized understanding of instruction [email or web address] Not available 02/10/2024 00:01:48 03/27/2024 03/27/2024 I provided real -time medical direction via phone for this encounter, and was available for additional phone based assistance as needed. I have reviewed and agree with the Assessment and Plan as documented by the Resident Care Associate. We discussed the diagnostic uncertainty of home [...] to call 911- verbalized understanding of instruction [email or web address] Not available 03/27/2024 16:48:02 05/29/2024 05/29/2024 service [...] in the field was performed by my supervisor brake repair colleague, as noted above, I provided real-time [...] Appointments None recorded. Lab culture, urine 2023 TIMBER [facility] (Centralized Electronic Ordering - All Locations), Patient Can Go To The Location Of Their Choice, [id number] 4 08:09:10 urinalysis, dipstick 2023 [facility], [address] [place] [address], [id number] 4 20:30:58 glucose, fingerstick , blood 2023 024 [email or web address] 0 [facility], [address] [place] [address], [id number] 4 16:33:19 Referral None recorded. Procedures None recorded. Surgeries None recorded. Imaging None recorded. Medication Orders Ciprodex 0.3 %-0.1 % ear drops,suspe nsion 2024 025 [facility], [address] [place] [address], [id number], 5 12:33:11 clotrimazol e 1 % topical cream 2023 024 [facility], [address] [place] [address], [id number], 4 10:37:01 bacitracin 500 unit/gram topical ointment 2023 024 [email or web address] 0 [facility], [address] [place] [address], [id number], 4 11:28:20 bacitracin 500 unit/gram topical ointment 2023 024 [facility], [address] [place] [address], [id number], 4 14:30:32 doxycycline hyclate 100 mg tablet 2023 024 [email or web address] 0 [facility], [address] [place], [place], [id number], 16:35:58 doxycycline hyclate 100 mg capsule 2023 024 [id number], [address] [place], [id number], 4 16:36:03 mupirocin 2 % topical ointment 2023 024 [id number], [address] [place], [id number], 4 16:36:03 Patient TargetsNo targets recorded. Patient Instructions Encounter Date Encounter Id Patient Instructions Last Modified By Organization Details Last Modified Time 02/09/2024 [id number] wound care* [email or web address] Not available 16:35:58 03/27/2024 [id number] wound care* [email or web address] Not available 11:28:21 Reason for Referral None Reported. Results Created Date Observation Date Name Description Value Unit Range Abnormal Flag Note LastModifiedBy Organization Detail LastModifiedTime 02/09/2002/09/2024 gluco se, gemma rene, blood Blood Glucose: mg/dl 148 Not Available [facility] [address] [place] [address], [phone] 02/09/2024 16:30:22 05/29/20 24 05/31/2024 URINE CULTU RE,CO MPREH ENSIV E urine culture,comp rehensive Final report Not Available [facility] ([facility]) [address] [facility], [place], [address], 05/31/2024 08:09:10 05/29/2005/31/2024 URINE CULTU RE,CO MPREH ENSIV E result 1 COMMEN T Mixed uroge nital mary Great er than 100,0 00 colon y formi ng units per mL Not Available [facility] ([facility]) [address] [facility], [place], [address], 05/31/2024 08:09:10 Result Notes None recorded. Medical Equipment None Reported. Allergies Allergen ID Allergen Name Allergen Category Reaction Reaction Severity Criticality Documentation Date Start Date Code Code System Note Provider Name and Address Organization Details Recorded Time 5119 codeine medicatio n Not available Not available Not available 12/30/2023 2670 RxNorm Radha Foster MD [address] [facility], [place], [address], [facility] - [employer], [employer] 14:14:47 Medications Name Sig Start Date Stop [...] Not Available Not Available Not Available [employer] [place] Lite kit USE DIRECTED TO TEST BLOOD [...] Available No t Available [employer] Mickey 2 [place] USE DIRECTED EVERY 8 HOURS active Not [...] [degF] 16 /min 92 % 92 % 109260. 184 g 126 mm[Hg] 76 mm[Hg] Not Available [employer] 4 16:16:18 Date Recorded Body temperature Oxygen saturation Oxygen saturation in Arterial blood by Pulse oximetry Body weight Respiratory rate Heart rate Systolic blood pressure Diastolic blood pressure Provider Name and Address Organization Details Last Updated DateTime 4 97.6 [degF] 96 % 96 % 273469. 592 g 16 /min 62 /min 130 mm[Hg] 66 mm[Hg] Not Available [employer] 4 15:32:02 Date Recorded Respiratory rate Oxygen saturation Oxygen saturation in Arterial blood by Pulse oximetry Body height Heart rate Body temperature Body weight Systolic blood pressure Diastolic blood pressure Provider Name and Address Organization Details Last Updated DateTime 4 16 /min 94 % 94 % 157.48 cm 60 /min 98.7 [degF] 132545. 448 g 129 mm[Hg] 77 mm[Hg] Not Available [employer] 4 11:19:40 Date Recorded Heart rate Body height Body temperature Respiratory rate Oxygen saturation Oxygen saturation in Arterial blood by Pulse oximetry Body weight Systolic blood pressure Diastolic blood pressure Provider Name and Address Organization Details Last Updated DateTime 4 58 /min 134.62 cm 99.3 [degF] 16 /min 95 % 95 % 205497. 632 g 150 mm[Hg] 73 mm[Hg] Not Available [employer] 4 17:02:13 Date Recorded Body temperature Respiratory [...] SNOMED-CT Code Diagnosis ICD10 Code Diagnosis Note [id number] Radha Foster MD [facility] [address] [place] [phone] 12/30/2023 14:10:14 12/31/2023 21:23:21 Cellulitis of lower limb [id number] L03.119 left lower leg primarily ? starting on right- has percocet 10/325 q 12 hrs- may have otc tylenol 2 x per day in between-da [facility] confirms he has regular Tylenol at [...] better staph coverage-a dvised to apply sparingly. [id number] Radha Foster MD [facility] [address] [place] [address] 02/09/2024 16:16:11 02/10/2024 13:33:55 Cellulitis of lower limb [id number] L03.119 left lower leg primarily, less on right- had percocet 10/325 q 12 hrs- no longer on med list-may have otc tylenol 4 x per day in between-da [facility] confirms he has regular Tylenol at [...] better staph coverage-a dvised to apply sparingly. 11155 Angely Lake MD Main - [address] [address] 02/23/2024 15:31:54 02/23/2024 22:21:20 Peripheral vascular disease [id number] I73.9 73 year old female being evaluated [...] assessment and plan as documented by the supervisor brake repair. I provided real-time medical direction for this encounter and was immediatel y available to provide additional phone-base d assistance as needed. We discussed the diagnostic uncertaint y of home visits and associated risks. We discussed the need to seek care urgently/e mergently in the setting of any new or worsening symptoms. [id number] Radha Foster MD Main - [address] [address] 03/27/2024 11:19:23 03/27/2024 22:47:07 Wound of skin [id number] T14.8XXA Advised to elevate the leg/not use [...] reviewed she is only allergic to codeine. [id number] Len Nguyen MD Main - [address] [address] 05/29/2024 17:02:10 05/30/2024 10:24:58 Kelsi mckeon [id number] B35.6 Urinary symptoms 9537560 08 R39.9 [id number] Michelle Rg MD [facility] [address] [place] [address] 09/25/2024 17:25:19 09/26/2024 08:34:36 Otitis externa of right ear [id number] 757008 H60.91 Health Concerns Section Related Observation LastModified by Organization Detai ls LastModified Time None Recorded Concern Status LastModified by Organization Details LastModified Time None Recorded Advance Directives Directive None Recorded Payers Encounter Date Sequence Insurance Name Policy Number Policy Meza Covered Member ID Meza Member ID Guarantor Name 02/09/2024 1 [employer] [facility] - DOS ON OR AFTER 2022 - DUAL ELIGIBLE - [employer] OPTIONS AND ONE CARE (MEDICARE REPLACEMENT/ADV ANTAGE - HMO) Mary Loujack Garnero Cis[employer]os [id number] Mary Lou Garnero Cisneros 02/23/2024 1 [employer] - DOS ON OR AFTER 2022 - DUAL ELIGIBLE - [employer] OPTIONS AND ONE CARE (MEDICARE REPLACEMENT/ADV ANTAGE - HMO) Maryl Oujack Garnero Cisneros [id number] Mary Lou Garnero Cisneros 03/27/2024 1 [employer] - DOS ON OR AFTER 2022 - DUAL ELIGIBLE - [employer] OPTIONS AND ONE CARE (MEDICARE REPLACEMENT/ADV ANTAGE - HMO) Mary Loujack Garnero Cis[employer] [id number] Mary Lou Garnero [employer]is[employer] 05/29/2024 1 [employer] - DOS ON OR AFTER 2022 - DUAL ELIGIBLE - [employer] OPTIONS AND ONE CARE (MEDICARE REPLACEMENT/ADV ANTAGE - HMO) Mary Loujack Garnero [employer] [id number] Mary Lou Garnero [employer] 09/25/2024 1 [employer] - DOS ON OR AFTER 2022 - DUAL ELIGIBLE - [employer] OPTIONS AND ONE CARE (MEDICARE REPLACEMENT/ADV ANTAGE - HMO) Mary Lou Sonido Cisneros [id number] Mary Lou Garnero [employer] Notes Date Note Type Note Provider Name and Address Organization Details Recorded Time 02/09/2024 text/html HPI: PMHx: [facility]ic[facility]. Reports pt having [...] any additional information to process this visit. Resident Care Associate POC Test Results from Jerman Anderson [facility] Blood Glucose Measurement (16:42:48) Blood Glucose: 148 mg/dL .................... .................... .................... .................... .................... .................... .................... . Resident Care Associate Note From Jerman Anderson: Smartcare visit for female patient with cellulitis. Pt presents conscious and alert. Pt Uzbek speaking only so daughter translated. Daughter reports that patient has had cellulitis for some time, [facility] and [facility] oral [...] as well. Blood glucose assessed. Consulted with [facility] Dr. Foster who prescribed additional course of [...] in the office. Radha Foster MD [address] [facility], [place], [address], [facility] 02/10/2024 00:01:57 [...] and placed visit for .Prescribed doxy at [facility] visit .................... .................... .................... .................... .................... .................... .................... . CRC Nurse Triage Notes (Nicole Bell): Comments: CRC RN DID NOT NEED FURTHER INFO .................... .................... .................... .................... .................... .................... .................... . Resident Care Associate Note From Abelardo Castro: Pt daughter concerned for wound/celilitis on legs not healing after antibiotic treatment. Pt denies fever pain edema or wheeping. Baseline vitals assessed. Cellulitis appears to be in healing stages. No bleeding or wheeping. Pictures uploaded. Pt sts has appt with pcp on Wednesday. . [facility] contacted and [facility] spoke with pt and advised to monitor for worsening redness or edema. Pt advised to follow up with pcp. Pt education on signs indicating the ER. .................... .................... .................... .................... .................... .................... .................... . Disposition: Fulfilled Angley Lake MD [address] [facility],[address], [place], [address], [employer] 02/23/2024 21:33:16 03/27/2024 text/html CRC Nurse Triage Notes (Rishi Domínguez): Reason For Request: left leg pain Chief Complaints: Pain PMH: Diabetes, Hypertension, COPD/Asthma Other Allergies: NKDA Comments: Acute Care Clinical Nurse Specialist verified the member's name//address and phone number. [...] .................... .................... .................... .................... .................... .................... . Resident Care Associate Note From Markell Villagomez: Pt? s daughter/CG reports pt was seen at [place] [facility] last week for cellulitis of the [...] .................... . Disposition: Fulfilled Radha Foster MD [address] [place] [address],[address], [place], [address], [employer] 03/27/2024 16:49:56 05/29/2024 text/html HPI: pmhx: UTI, [...] Unable to bring pt to [facility] at [facility] as pt is bed bound. Agrees to [facility] referral. Confirmed address, contact number and allergies. .................... .................... .................... .................... .................... .................... .................... . CRC Nurse Triage Notes (Melinda Melvin): Chief Complaints: Rash, UTI/Pyelonephritis PMH: COPD/Asthma, Diabetes, Hypertension, COPD/Asthma Other Allergies: CODIENE Comments: CRC RN did not require any additional information to process this visit. Resident Care Associate Organization Information for Jerman Anderson Business Legal Name: [employer]? Address: [address] [place] [address], [employer]: Jhon Strickland MD [facility] No.: [id number] Resident Care Associate POC Test Results from Jerman Anderson Blood [...] .................... .................... .................... .................... .................... .................... . Resident Care Associate Note From Jerman Anderson: Smartcare visit for female pt. Pt presents with family and BROADCAST CHECKER. Pt has reportedly had redness and irritation in her groin for 1 week in addition to high blood sugars. V/S taken as listed. Pt afebrile, though temp seems to be elevated with pt having taken acetaminophen today. BROADCAST CHECKER changed pt's diaper and redness was noted in addition to smell consistent with possible fungal infection. Obtained urine sample positive for leukocytes and nitrates and blood and glucose. Blood glucose elevated at 335 mg/dL. Family reports difficulty maintaining blood sugar and that pt has not adhered to dietary restrictions. Urine culture obtained. Consulted with [facility] Dr. Nguyen who prescribed clotrimazole and ordered urine culture. Reviewed red flags for ED. Pt education provided. Culture delivered to [facility]. [facility] Lab Orders: culture, urine: Performed .................... .................... .................... .................... .................... .................... .................... . Disposition: Fulfilled Len Nguyen MD [address] [place] [address],[address], [place], [address], [employer] 05/29/2024 22:50:45 09/25/2024 text/html CRC Nurse Triage [...] s/s and seek emergency treatment if needed. Resident Care Associate Organization Information for Markell Villagomez Business Legal Name: [facility] Address: [address] [place], [place] [address] [place] [address], [employer]: Rob HERNANDEZ No.: [id number] Resident Care Associate POC Test Results from Markell Villagomez Rapid [...] reported s/s and seek emergency treatment if needed.[facility] HPI: known FM, chronic pain, uses oxycodone and gabapentin for this. 3-7d R ear pain. some sinus congestion .................... .................... .................... .................... .................... .................... .................... . Resident Care Associate Note From Markell Villagomez: This 74-year-old female [...] .................... .................... .................... .................... .................... .................... . [facility] Consulted: Michelle Rg .................... .................... .................... .................... .................... .................... .................... . Disposition: Fulfilled Michelle Rg MD [address] [facility], [place], [address], TINO GONZALEZ 09/25/2024 18:01:43 OBGyn Episode No OBEpisode recorded.
--- OUTSIDE RECORDS SUMMARY | 2024-11-25 09:48 | XMS_ITS | Encounter Summary ---
Author Organization [employer] Address [address] [facility] [address] [place] [address] Care Team Providers Care Soaker Hides Name Role Phone Amanda [place] MD Primary Care Provide r Hiro Ram RECTIFYING ATTENDANT Unavailable Unavailable Raad Arias PharmD Unavailable [phone] Reason for Visit * Reason Onset Date Comments Hospital Follow-up 08/16/2024 Encounter Details Date Type Department Care Team (Late st Contact Info) Description 08/16/2024 Telephone [facility] [address] [place] [address] Amanda Watkins MD [address] [place], [place] [phone] Hospital Follow-up Social History Tobacco Use Types [...] from pt requesting a HDF appt. Hospital: [facility] Date of admission: 08/12/24 Discharge date: 08/15/2024 Diagnosed: (water in the lungs) *Send message to [facility] Clinical Care Coordinators documented in this encounter Plan of Treatment Upcoming Encounters Date Type Department Care Team (Late st Contact Info) Description 11/28/2024 1:45 PM EDT Office Visit [facility] [address] [place] [phone] Amanda Watkins MD [address] [place] [address] 12/20/2024 3:30 PM EDT Telemedicine [facility] [address] [place] [address] Raad Arias, TheaD [address] [place] [address] documented as of this encounter Visit Diagnoses Not on filedocumented in this encounter Additional Health Concerns Assessment Noted Time PHQ-9 Depression Total Score: 10 024 3:23 PM EDT documented as of this encounter Care Teams Soaker Hides Relationship Specialty Start Date End Date Amanda Watkins MD [address] [place] [address] PCP - General Family Medicine 04/07/19 Hiro Ram FNP [address] [place] [address] Nurse Practitioner Family Medicine 07/06/23 Raad Arias, TheaD [address] [place] [address] Pharmacist Internal Medicine 10/19/24 [facility] 07/03/22 08/16/24 Ja A 08/10/24 documented as of this encounter
--- OUTSIDE RECORDS SUMMARY | 2024-11-25 09:48 | XMS_ITS | Clinical Summary ---
Author Organization [facility] Address [address] [facility] [address] [place] [address] Phone Care Team Providers Care Retail Parts Professional Name Role Phone Amanda Watkins MD Primary [...] Office Visit [facility] [address] [place] [address] Tl Ibarra MD [address] [facility] [address] [place] [address] Health Maintenance Due Date Last Done Comments [...] 06/23/2024, , 09/30/2017, Additional history exists Insurance [facility] ([id number]) [address] [place] [id number] [facility] ([id number]) Care Teams Retail Parts Professional Relationship Specialty Start Date End Date Amanda Watkins MD [address] [address] PCP - General Internal Medicine 03/01/23
[2024-11-25] MEDS: Pantoprazole Sodium 40 MG/10 ML VIAL IVPUSH (09:50)
[2024-11-25] MEDS: LORazepam 1 MG TABLET PO (09:50)
[2024-11-25] MEDS: 0.9 % Sodium Chloride 1,000 ML 999 ML IVCONT (09:52)
[2024-11-25] MEDS: diazePAM 10 MG/2 ML CARTRIDGE 2.5 MG IVPUSH ×2 (10:13→11:26)
[2024-11-25 10:41] LABS: Alanine Aminotransferase 7 U/L (0-31); Albumin Level 3.2 g/dL (3.5-5.0); Anion Gap 13 (12-20); Aspartate Amino Transferase 20 U/L (5-31); Bilirubin Total 0.3 mg/dL (0.0-1.0); Blood Urea Nitrogen 23 mg/dL (9-16); Calcium 8.2 mg/dL (8.4-10.2); Carbon Dioxide 33 mmol/L (22-29); Chloride 98 mmol/L (96-108); Creatinine Clr Calc Pharmacy 35.7; Estimated Glomerular Filt Rate 33; Glucose Random 283 mg/dL (60-115); Lipase 28 U/L (8-78); Sodium 140 mmol/L (135-145); Total Protein 6.4 g/dL (6.5-8.0)
[2024-11-25 11:39] VITALS: BP 118/36; PULSE 69; RESP 16; TEMP 36.6; O2SAT 95
[2024-11-25] MEDS: ondansetron HCL 4 MG/2 ML VIAL IVPUSH (12:40)
[2024-11-25 13:10] LABS: Alkaline Phosphatase 62 U/L (39-117)
[2024-11-25] MEDS: oxyCODONE HCl Immed Release 5 MG TABLET PO (13:42)
[2024-11-25 14:07] VITALS: BP 126/50; PULSE 72; RESP 20; TEMP 36.8; O2SAT 99
[2024-11-25 14:13] VITALS: BP 126/50; PULSE 72; RESP 20; TEMP 36.8; O2SAT 99
== END 2024-11-25 14:22 | disposition home or self-care (01) ==
PROVIDERS: Emergency Provider Emergency Medicine
DX: F41.9 Anxiety disorder, unspecified (principal); R10.10 Upper abdominal pain, unspecified; R11.10 Vomiting, unspecified; E66.01 Morbid (severe) obesity due to excess calories; I12.9 Hypertensive chronic kidney disease with stage 1 through stage 4 chronic kidney disease, or unspecified chronic kidney disease; E11.22 Type 2 diabetes mellitus with diabetic chronic kidney disease; N18.30 Chronic kidney disease, stage 3 unspecified; Z79.899 Other long term (current) drug therapy
CPT/HCPCS: 36415; 74176; 80053; 83690; 85025; 96361; 96374; 96375; 96376; 99284; J2405; J2470; J3360

== ENCOUNTER → 2024-11-25 10:58 | Outpatient (BNV) | payer OTHER, SELFPAY | PROVIDERS: Emergency Provider Emergency Medicine; Visit Provider Specialist | DX: D25.9 Leiomyoma of uterus, unspecified (principal) | CPT/HCPCS: 74176 ==

== ENCOUNTER 2024-12-05 23:00 | Inpatient (IN) | payer OTHER, SELFPAY ==
[2024-12-05 23:06] VITALS: BP 123/59; BP 154/78; PULSE 69; PULSE 73; RESP 20; TEMP 36.8; O2SAT 97; O2SAT 99; BMI 43.0
--- NOTE | 2024-12-05 23:09 | MHC.EDTECH ---
this tech assumed care @ this time
[2024-12-05] MEDS: LORazepam 1 MG TABLET 2 MG PO (23:41)
[2024-12-06] VITALS (10 sets, daily range): BP systolic 122–163; BP diastolic 44–67; PULSE 53–75; RESP 13–18; TEMP 36.1–36.9; O2SAT 94–100; BMI 45.5
[2024-12-06 00:18] LABS: MANUAL DIFF FLAG NO
[2024-12-06 00:23] LABS: Basophils Percent Auto 0.8 % (0-2); Eosinophils Absolute Auto 0.2 X10*3/uL (0.0-0.4); Hematocrit 27.4 % (37.0-47.0); Imm Gran Abs Auto 0.02 X10*3/uL (0.00-0.03); Imm Gran Pct Auto 0.4 % (0.0-0.4); Lymphocytes Absolute Auto 1.5 X10*3/uL (1.2-4.9); Lymphocytes Percent Auto 30.8 % (20-40); Mean Corpuscular HGB Conc 29.2 g/dl (31.0-35.0); Mean Corpuscular Volume 71.9 fL (80.0-98.0); Mean Platelet Volume 9.9 fL (9.4-12.3); Monocytes Absolute Auto 0.5 X10*3/uL (0.1-1.2); Neutrophils Absolute Auto 2.6 x10*3/uL (2.0-8.3); Platelet Count 215 X10*3/uL (160-400); Red Blood Count 3.81 X10*6/uL (4.20-5.50); Red Cell Distribution Width 16.2 % (11.0-16.0); White Blood Count 4.8 X10*3/uL (4.8-10.8)
[2024-12-06] MEDS: OLANZapine 10 MG TABLET PO (00:30)
[2024-12-06 00:39] LABS: Alanine Aminotransferase 7 U/L (0-31); Albumin Level 3.2 g/dL (3.5-5.0); Alkaline Phosphatase 54 U/L (39-117); Anion Gap 13 (12-20); Aspartate Amino Transferase 17 U/L (5-31); Bilirubin Direct 0.1 mg/dL (0.0-0.5); Bilirubin Total 0.3 mg/dL (0.0-1.0); Blood Urea Nitrogen 28 mg/dL (9-16); Calcium 8.8 mg/dL (8.4-10.2); Carbon Dioxide 31 mmol/L (22-29); Chloride 100 mmol/L (96-108); Creatinine Clr Calc Pharmacy 34.9; Estimated Glomerular Filt Rate 34; Ethanol < 10 mg/dL; Glucose Random 182 mg/dL (60-115); Potassium 4.2 mmol/L (3.3-5.1); Sodium 140 mmol/L (135-145); Total Protein 6.2 g/dL (6.5-8.0)
--- NOTE | 2024-12-06 00:44 | PC.NURSE ---
pt requesting IM medications at this time. states you've already given me 2 pills and nothings working pt continues to cry, yell out, help me i'm suffering MD Michael at bedside and aware.
[2024-12-06] MEDS: Ziprasidone Mesylate 20 MG VIAL 10 MG IM (00:55)
[2024-12-06] MEDS: Gabapentin 300 MG CAPSULE PO (01:38)
--- NOTE | 2024-12-06 01:59 | PC.NURSE ---
pt ambulated with this RN to and from bathroom. urine sample collected and sent to lab. pt continues to cry.
[2024-12-06 02:03] LABS: Appearance Urine Clear; Color Urine Yellow; Glucose Urine UA Negative (Negative); Leukocyte Esterase Urine Negative (Negative); Nitrite Urine Negative (Negative); PH 7.5 (5.0-9.0); Urine Blood Negative (Negative); Urine Ketones Negative (Negative); Urine Protein Negative (Neg-Trace)
--- NOTE | 2024-12-06 02:08 | ED_ITS ---
HPI - Anxiety General Chief Complaint: Anxiety Stated Complaint: anxiety Time Seen by Provider: 12/05/24 23:33 Source: patient and EMS Mode of arrival: EMS Limitations: no limitations History of Present Illness ED Provider: Dr. Petrona Michael HPI narrative: Patient comes to the emergency room via ambulance. According to EMS, the patient's daughter who takes care of the patient called because the patient has been very anxious for 2 days, crying, pacing. They have hydroxyzine at home but it is not helping. Patient crying all the time, stating that she is having a panic attack, complaining of leg anxiety . Patient's daughter stated that sometimes patient gets so anxious that she starts pulling and rubbing her hair out. Also, patient has been scratching herself and she has been throwing things around the house. Related Data Home Medications ?Medication ?Instructions ?Recorded ?Confirmed atorvastatin 80 mg tablet 80 mg PO BEDTIME 04/07/21 12/06/24 duloxetine 20 mg capsule,delayed 20 mg PO DAILY 03/18/24 12/06/24 release omeprazole 40 mg capsule,delayed 40 mg PO DAILY@0630 03/18/24 12/06/24 release aspirin 81 mg tablet,delayed 81 mg PO BEDTIME 06/11/24 12/06/24 release gabapentin 100 mg capsule 100 mg PO TID 06/11/24 12/06/24 oxycodone-acetaminophen 5 mg-325 1 tab PO Q6H PRN pain 06/11/24 12/06/24 mg tablet ketotifen fumarate 0.025 % (0.035 1 drp ophthalmic (eye) Q12H PRN 10/06/24 12/06/24 %) eye drops (Eye Itch Relief) Eye Irritation trazodone 150 mg tablet 150 mg PO BEDTIME 10/06/24 12/06/24 calcium carbonate (Oyster Shell 500 mg PO BID 12/06/24 12/06/24 Calcium 500) dulaglutide 1.5 mg/0.5 mL 1.5 mg subcut FR 12/06/24 12/06/24 subcutaneous [facility] hydroxyzine HCl 25 mg tablet 25 mg PO Q8H PRN anxiety 12/06/24 12/06/24 insulin degludec 200 unit/mL (3 64 unit subcut DAILY 04/30/25 04/30/25 mL) subcutaneous pen (Tresiba FlexTouch U-200 insulin) loratadine 10 mg tablet 10 mg PO DAILY 12/06/24 12/06/24 melatonin 3 mg tablet 3 mg PO BEDTIME 12/06/24 12/06/24 Previous Rx's ?Medication ?Instructions ?Recorded apixaban 5 mg tablet (Eliquis) 5 mg PO BID #60 tabs 11/03/23 amlodipine 5 mg tablet 5 mg PO DAILY #30 tabs 06/20/24 torsemide 20 mg tablet 20 mg PO DAILY #30 tabs 06/20/24 ammonium lactate 12 % lotion 1 appl topical BID #400 grams 12/08/24 doxycycline monohydrate 100 mg 100 mg PO BID #14 caps 12/08/24 capsule levothyroxine 88 mcg capsule 88 mcg PO DAILY #90 caps 12/08/24 Allergies Allergy/AdvReac Type Severity Reaction Status Date / Time codeine [CODEINE] Allergy Intermediate HALLUCINATI Verified 12/05/24 23:07 ONS Review of Systems 2 Review of Systems: Patient complaining of anxiety Yes Other PMFSH Past Medical History Medical History (Updated 12/08/24 @ 12:42 by Ronaldo Sarah MD) CKD (chronic kidney disease) CKD stage 3 due to type 2 diabetes mellitus Leg abrasion Abuse of non-prescription analgesics Type 2 diabetes mellitus with unspecified complications Other and unspecified hyperlipidemia Essential hypertension Atherosclerotic cardiovascular disease Urgency incontinence Osteoporosis Arthritis Asthma Hypertension Fibromyalgia Diabetes mellitus Surgical History History of hernia repair Social History Social History Household Members: Family Household Members Other:: friend Housing: Unknown / Unable to assess Do you presently have visiting nurse or other home services: Yes Unable to assess alcohol history related to: Refusing to respond Alcohol intake: never 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 Patient Tobacco Use Status: Never used Tobacco Smoked in Last 30 Days: No Use of substances other than those prescribed or required for medical reasons: No Currently Displaying Signs/Symptoms of Drug Intoxication Withdrawal: No Advance Directives: Yes Advance Directives on File: Yes Advance Directives Date on File: 04/07/24 Do you have a plan to hurt others: No Plan Recently lost weight without trying: No Patient : No : No Poor oral hygiene: No service: No Sexual orientation: Straight/Heterosexual Physical Exam 2 Vital Signs: Vital Signs: Last Vital Signs Temp 98.9 F 12/08/24 11:14 Pulse 73 12/08/24 11:14 Resp 18 12/08/24 11:14 BP 149/66 H 12/08/24 11:14 Pulse Ox 95 12/08/24 11:14 O2 Del Method Room Air 12/08/24 11:14 O2 Flow Rate 3 12/06/24 20:24 BMI result Body Mass Index 43.0 Const: Other: Appearance: Alert. very anxious, crying, mumbling Eyes: Pupils equal, round and reactive to light. ENT: Pharynx normal. Neck: Normal inspection. Neck supple. No lymph nodes noted. No crepitus CVS: Normal heart rate and rhythm. Pulses normal. Normal S1 and S2 Respiratory: No respiratory distress. Breath sounds normal. No Wheezing. No rales Abdomen: Soft and nontender. No rigidity. No distention. Skin: Skin warm and dry. Normal skin color. Normal skin turgor. Extremities: No lower extremity edema. No Lacerations. No Rash Neuro: patient unable to participating cranial nerve assessment, but roughly cranial nerves 2-12 grossly intact , patient shaking both legs , anxiety versus restless legs syndrome? Psych: calm, anxious, crying, occasionally mumbling. Course Course Course Narrative: Patient extremely anxious, on arrival patient was given p.o. Ativan 2 mg. all of patient's labs and imaging pending patient will likely need a care team consult pending and [facility]a psych. Reevaluation(s) Reevaluation #1: 03:19 I assumed care of this patient from my colleague, Dr. Petrona Michael at 02:00 hours. 74-year-old female with a history of anxiety, cellulitis, depression, ANILA, asthma, CHF, atrial flutter, opiate dependence, diabetes, hyperlipidemia, hypertension who presents emergency department for extreme agitation and anxiety. Dr. Michael gave the patient multiple medications with no relief of her agitation and anxiety. The patient received oxycodone 5 mg orally, Ziprasidone 10 mg IM, Zyprexa 10 mg orally, Ativan 2 mg orally and gabapentin 300 mg orally. Nursing staff did speak to the patient's daughter and was told that the patient has been up all night and extremely agitated for the last 2-3 nights. When I evaluated the patient she told me that she was having severe ?anxiety? in her legs left greater than right. Patient states that she had morphine for this problem in the past. On examination the patient does have erythema of the left lower extremity compared to the right. I did order Versed 4 mg IV for her agitated and morphine 2 mg IV for her pain.. Patient was placed on a cardiac, O2 saturation and CO2 monitor. The patient's primary contact number is her daughter, Britni Layton at [phone] and I got a message stating that the patient can not accept voice mails at this time and that the number is an invalid number. I did order a ESR, CRP, blood cultures x2 and lactic acid. Patient will be treated for possible cellulitis with Zosyn 4 mg IV. I will discuss admission with the covering hospitalist, Dr. Knight. Reevaluation #2: 03:47 The patient is still agitated. The patient had a run of V-tach/torsades caught on the monitor. The patient did not have any altered mental status and was still agitated during this event. I added a magnesium 2 the patient's blood work and also gave the patient magnesium [address] Knight was made aware of this arrhythmia. Patient will be admitted to the hospitalist service and monitored on telemetry for further management. Reevaluation #3: 04:22 Start physician observation I did discuss the patient with Dr. Hearn. He was concerned that the patient had received multiple medications that could prolong her QTC interval and cause torsades. He was also concerned that the patient was still agitated despite the significant amount of medications that we gave her in the emergency department and he felt that she was not appropriate for the telemetry unit and felt that the patient should go to the intensive care unit. At this time, we do not have intensive care unit beds. Therefore, the patient will be kept in the emergency department on physician observation. I will continue to try to medicate the patient with morphine to see if this improves her pain in her agitation my treating her pain. We will also monitor the patient closely for any further arrhythmias. 09:06 Physician observation ended at 09:06 hours. Patient was had no further arrhythmias since she has been monitored here in the emergency department. The patient received a another dose of morphine 4 mg IV which significantly improved her pain. The patient is somnolent but arousable and she was to answer questions. Given the patient's cellulitis, the amount of medications that was required to control her anxiety and her pain and the nonsustained V- tach/torsades, believe the patient needs to be admitted for further treatment. I did discuss the patient's presentation over tiger text with the covering hospitalist, Dr. Torres. Medications Administered Generic Name Dose Route Start Last Admin Trade Name Freq PRN Reason Stop Dose Admin Acetaminophen 975 mg 12/07/24 11:00 12/08/24 08:20 Acetaminophen 325 Mg Tablet PO 975 mg QSHIFT JULIANNE Administration Amlodipine Besylate 5 mg 12/07/24 09:00 12/08/24 08:21 Amlodipine Besylate 5 Mg Tablet PO 5 mg DAILY JULIANNE Administration Protocol Apixaban 5 mg 12/06/24 21:00 12/08/24 08:20 Apixaban 5 Mg Tablet PO 5 mg BID JULIANNE Administration Aspirin 81 mg 12/06/24 21:00 12/07/24 21:25 Aspirin Enteric Coated 81 Mg Tablet. PO 81 mg BEDTIME JULIANNE Administration Atorvastatin Calcium 80 mg 12/06/24 21:00 12/07/24 21:25 Atorvastatin Calcium 80 Mg Tablet PO 80 mg BEDTIME JULIANNE Administration Calcium Carbonate 500 mg 12/06/24 21:00 12/08/24 08:20 Calcium Oyster Shell Elemental 500 Mg Tablet PO 500 mg BID JULIANNE Administration Duloxetine HCl 20 mg 12/07/24 09:00 12/08/24 08:21 Duloxetine Hcl 20 Mg Capsule. PO 20 mg DAILY JULIANNE Administration Gabapentin 200 mg 12/07/24 15:00 12/08/24 08:21 Gabapentin 100 Mg Capsule PO 200 mg TID JULIANNE Administration Hydroxyzine HCl 25 mg 12/06/24 18:44 12/08/24 05:20 Hydroxyzine Hcl 25 Mg Tablet PO 25 mg Q8H PRN Administration anxiety Doxycycline Hyclate 100 mg/ 250 mls @ 166.67 mls/hr 12/06/24 16:00 12/08/24 06:03 Sodium Chloride IV Infused Q12H JULIANNE Infusion Insulin Human Lispro 0 unit 12/06/24 16:30 12/08/24 11:18 Insulin Lispro 100 Unit/Ml 3 Ml Vial SUBCUT 2 unit QIDACHS [facility] Administration Protocol Lactic Acid 1 appl 12/07/24 12:55 12/08/24 08:23 Ammonium Lactate 12 % Lotion 226 Gm Bottle TOPICAL 1 appl BID [facility] Administration Protocol Levothyroxine Sodium 75 mcg 12/07/24 06:00 12/08/24 05:20 Levothyroxine Sodium 75 Mcg Tablet PO 75 mcg DAILY@0600 [facility] Administration Loratadine 10 mg 12/07/24 09:00 12/08/24 08:20 Loratadine 10 Mg Tablet PO 10 mg DAILY [facility] Administration Melatonin 6 mg 12/06/24 11:52 12/07/24 21:25 Melatonin 3 Mg Tablet PO 6 mg BEDTIME PRN Administration Insomnia Omeprazole 40 mg 12/07/24 06:30 12/08/24 05:21 Omeprazole 40 Mg Capsule.Dr PO 40 mg DAILY@0630 [facility] Administration Oxycodone HCl 5 mg 12/06/24 20:59 12/08/24 11:14 Oxycodone Hcl Immed Release 5 Mg Tablet PO 5 mg Q6H PRN Administration Pain, Severe (Pain Scale 7-10) Sodium Chloride 3 ml 12/06/24 16:00 12/08/24 08:21 0.9 % Sodium Chloride Flush 3 Ml Syringe IVFLUSH 3 ml QSHIFT [facility] Administration Torsemide 20 mg 12/07/24 09:00 12/08/24 08:21 Torsemide 20 Mg Tablet PO 20 mg DAILY [facility] Administration Protocol Discontinued Medications Generic Name Dose Route Start Last Admin Trade Name Freq PRN Reason Stop Dose Admin Acetaminophen 650 mg 12/06/24 11:52 12/06/24 17:43 Acetaminophen 325 Mg Tablet PO 650 mg Q6H PRN Administration Pain, Mild 1-3,fever,headache Gabapentin 300 mg 12/06/24 01:32 12/06/24 01:38 Gabapentin 300 Mg Capsule PO 12/06/24 01:33 300 mg ONCE ONE Administration Gabapentin 100 mg 12/06/24 21:00 12/07/24 08:11 Gabapentin 100 Mg Capsule PO 100 mg TID [facility] Administration Piperacillin Sod/Tazobactam 100 mls @ 200 mls/hr 12/06/24 03:14 12/06/24 04:03 Sod 4.5 gm/ Sodium Chloride IV 12/06/24 03:43 Infused ONCE ONE Infusion Magnesium Sulfate 2 gm in 50 mls @ 25 mls/hr 12/06/24 03:41 12/06/24 04:15 Magnesium Sulfate/H2o IV 12/06/24 05:40 Infused ONCE ONE Infusion Magnesium Sulfate 2 gm in 50 mls @ 25 mls/hr 12/06/24 21:45 12/07/24 06:30 Magnesium Sulfate/H2o IV 12/06/24 23:44 Infused ONCE ONE Infusion Lorazepam 2 mg 12/05/24 23:36 12/05/24 23:41 Lorazepam 1 Mg Tablet PO 12/05/24 23:37 2 mg ONCE ONE Administration Midazolam HCl 2 mg 12/06/24 02:33 12/06/24 02:39 Midazolam Hcl 2 Mg/2 Ml Vial IVPUSH 12/06/24 02:34 2 mg ONCE ONE Administration Midazolam HCl 2 mg 12/06/24 02:56 12/06/24 03:04 Midazolam Hcl 2 Mg/2 Ml Vial IVPUSH 12/06/24 02:57 2 mg ONCE ONE Administration Morphine Sulfate 2 mg 12/06/24 03:18 12/06/24 03:20 Morphine Sulfate 2 Mg/Ml Cartridge IVPUSH 12/06/24 03:19 2 mg ONCE ONE Administration Protocol Morphine Sulfate 4 mg 12/06/24 04:27 12/06/24 04:31 Morphine Sulfate 4 Mg/Ml Cartridge IVPUSH 12/06/24 04:28 4 mg ONCE STA Administration Protocol Morphine Sulfate 4 mg 12/06/24 23:12 12/06/24 23:57 Morphine Sulfate 4 Mg/Ml Cartridge IVPUSH 12/06/24 23:13 4 mg ONCE ONE Administration Protocol Olanzapine 10 mg 12/06/24 00:07 12/06/24 00:30 Olanzapine 10 Mg Tablet PO 12/06/24 00:08 10 mg ONCE ONE Administration Oxycodone HCl 5 mg 12/06/24 02:19 12/06/24 02:22 Oxycodone Hcl Immed Release 5 Mg Tablet PO 12/06/24 02:20 5 mg ONCE ONE Administration Quetiapine Fumarate 50 mg 12/06/24 02:13 12/06/24 02:22 Quetiapine Fumarate 50 Mg Tablet PO 12/06/24 02:14 50 mg ONCE ONE Administration Ziprasidone 10 mg 12/06/24 00:44 12/06/24 00:55 Ziprasidone Mesylate 20 Mg Vial IM 12/06/24 00:45 10 mg ONCE ONE Administration Medical Decision Making Medical Decision Making [facility] Narrative: my interpretation of labs: Patient is chronically anemic with a hemoglobin of 8. This is patient's baseline. Chemistry within normal limits, urinalysis negative for UTI, U tox positive for oxycodone which is prescribed to the patient. ETOH negative On arrival, patient was given p.o. Ativan which did not do anything. Then patient was given p.o. Zyprexa 10 mg. Still did not do anything. When patient was given 10 mg IM of Zyprexa, patient is still very anxious. Patient states that she has leg anxiety. Patient states that sometimes her right leg is anxious and then the left leg. Trying to understand what the patient is feeling, it is possible the patient may have neuropathy versus restless legs syndrome, patient keeps shaking her legs. Patient was given 300 mg of gabapentin. After all the above mentioned medication, patient is still crying, very anxious, scratching and pulling her hair. Patient was given Seroquel p.o.. Patient will need a [facility]aila psych consult. Differential Diagnosis Differential Diagnoses: The differential diagnosis associated with the presentation includes ( Anxiety, depression, dementia) Admission/Observation Consideration of admission/observation: Escalation of care including admission/observation considered Lab Data [facility] Lab Attestation statement: I reviewed the patient's lab results. 12/08/24 06:24 12/08/24 06:24 Labs: Lab Results 12/06/24 12/06/24 12/06/24 Range/Units 00:14 01:57 03:30 WBC 4.8 (4.8-10.8) X10*3/uL RBC 3.81 L (4.20-5.50) X10*6/uL Hgb 8.0 L (12.0-16.0) g/dl Hct 27.4 L (37.0-47.0) % MCV 71.9 L (80.0-98.0) fL MCH 21.0 L (27.0-33.0) pg MCHC 29.2 L (31.0-35.0) g/dl RDW 16.2 H (11.0-16.0) % Plt Count 215 (160-400) X10*3/uL MPV 9.9 (9.4-12.3) fL Immature Gran % (Auto) 0.4 (0.0-0.4) % Neut % (Auto) 54.0 (45-73) % Lymph % (Auto) 30.8 (20-40) % [place] % (Auto) 10.0 (2-11) % Eos % (Auto) 4.0 (0-4) % Baso % (Auto) 0.8 (0-2) % Lymph # (Auto) 1.5 (1.2-4.9) X10*3/uL [place] # (Auto) 0.5 (0.1-1.2) X10*3/uL Eos # (Auto) 0.2 (0.0-0.4) X10*3/uL Baso # (Auto) 0.0 (0.0-0.2) X10*3/uL Abs Immat Gran (auto) 0.02 (0.00-0.03) X10*3/uL Absolute Neuts (auto) 2.6 (2.0-8.3) x10*3/uL Absolute Nucleated RBC 0.000 (0.0-0.012) X10*3/uL Nucleated RBC % (auto) 0.0 (0.0-0.2) /100WBC ESR 17 (0-20) MM/HR VBG pH (7.32-7.43) VBG pCO2 mmHg VBG pO2 mmHg VBG HCO3 (22-26) mmol/L VBG O2 Saturation % VBG Base Excess mmol/L Sodium 140 (135-145) mmol/L Potassium 4.2 (3.3-5.1) mmol/L Chloride 100 (96-108) mmol/L Carbon Dioxide 31 H (22-29) mmol/L Anion Gap 13 (12-20) BUN 28 H (9-16) mg/dL Creatinine 1.48 H (0.5-1.4) mg/dL Estim Creat Clear Calc 34.9 Estimated GFR 34 Random Glucose 182 H (60-115) mg/dL Lactic Acid 1.4 (0.5-2.0) mmol/L Calcium 8.8 D (8.4-10.2) mg/dL Magnesium 1.7 (1.6-2.6) mg/dL Total Bilirubin 0.3 (0.0-1.0) mg/dL Direct Bilirubin 0.1 (0.0-0.5) mg/dL AST 17 (5-31) U/L ALT 7 (0-31) U/L Alkaline Phosphatase 54 (39-117) U/L C-Reactive Protein < 0.10 (< or = 0.50) mg/dL Total Protein 6.2 L (6.5-8.0) g/dL Albumin 3.2 L (3.5-5.0) g/dL TSH 31.90 H (0.32-4.0) uIU/mL Free T4 0.69 L (0.71-1.85) ng/dL Urine Color Yellow Urine Appearance Clear Urine pH 7.5 (5.0-9.0) Ur Specific [place] 1.010 (1.005-1.025) Urine Protein Negative (Neg-Trace) mg/dL Urine Glucose (UA) Negative (Negative) mg/dL Urine Ketones Negative (Negative) mg/dL Urine Blood Negative (Negative) Urine Nitrite Negative (Negative) Ur Leukocyte Esterase Negative (Negative) Urine Opiates Screen Not Detected (Not Detect) Ur Buprenorphine Scrn Not Detected (Not Detect) ng/mL Ur Oxycodone Screen Positive H (Not Detect) ng/mL Urine Methadone Screen Not Detected (Not Detect) ng/mL Urine Fentanyl Screen Not Detected (Not Detect) Ur Barbiturates Screen Not Detected (Not Detect) Ur Phencyclidine Scrn Not Detected (Not Detect) Ur Amphetamines Screen Not Detected (Not Detect) U Benzodiazepines Scrn Not Detected (Not Detect) Urine Cocaine Screen Not Detected (Not Detect) U Marijuana (THC) Screen Not Detected (Not Detect) Ethyl Alcohol < 10 mg/dL 12/06/24 Range/Units 11:04 WBC (4.8-10.8) X10*3/uL RBC (4.20-5.50) X10*6/uL Hgb (12.0-16.0) g/dl Hct (37.0-47.0) % MCV (80.0-98.0) fL MCH (27.0-33.0) pg MCHC (31.0-35.0) g/dl RDW (11.0-16.0) % Plt Count (160-400) X10*3/uL MPV (9.4-12.3) fL Immature Gran % (Auto) (0.0-0.4) % Neut % (Auto) (45-73) % Lymph % (Auto) (20-40) % [place] % (Auto) (2-11) % Eos % (Auto) (0-4) % Baso % (Auto) (0-2) % Lymph # (Auto) (1.2-4.9) X10*3/uL [place] # (Auto) (0.1-1.2) X10*3/uL Eos # (Auto) (0.0-0.4) X10*3/uL Baso # (Auto) (0.0-0.2) X10*3/uL Abs Immat Gran (auto) (0.00-0.03) X10*3/uL Absolute Neuts (auto) (2.0-8.3) x10*3/uL Absolute Nucleated RBC (0.0-0.012) X10*3/uL Nucleated RBC % (auto) (0.0-0.2) /100WBC ESR (0-20) MM/HR VBG pH 7.44 H (7.32-7.43) VBG pCO2 59 mmHg VBG pO2 193 mmHg VBG HCO3 40 H (22-26) mmol/L VBG O2 Saturation 100.0 % VBG Base Excess 14.8 mmol/L Sodium (135-145) mmol/L Potassium (3.3-5.1) mmol/L Chloride (96-108) mmol/L Carbon Dioxide (22-29) mmol/L Anion Gap (12-20) BUN (9-16) mg/dL Creatinine (0.5-1.4) mg/dL Estim Creat Clear Calc Estimated GFR Random Glucose (60-115) mg/dL Lactic Acid (0.5-2.0) mmol/L Calcium (8.4-10.2) mg/dL Magnesium (1.6-2.6) mg/dL Total Bilirubin (0.0-1.0) mg/dL Direct Bilirubin (0.0-0.5) mg/dL AST (5-31) U/L ALT (0-31) U/L Alkaline Phosphatase (39-117) U/L C-Reactive Protein (< or = 0.50) mg/dL Total Protein (6.5-8.0) g/dL Albumin (3.5-5.0) g/dL TSH (0.32-4.0) uIU/mL Free T4 (0.71-1.85) ng/dL Urine Color Urine Appearance Urine pH (5.0-9.0) Ur Specific [place] (1.005-1.025) Urine Protein (Neg-Trace) mg/dL Urine Glucose (UA) (Negative) mg/dL Urine Ketones (Negative) mg/dL Urine Blood (Negative) Urine Nitrite (Negative) Ur Leukocyte Esterase (Negative) Urine Opiates Screen (Not Detect) Ur Buprenorphine Scrn (Not Detect) ng/mL Ur Oxycodone Screen (Not Detect) ng/mL Urine Methadone Screen (Not Detect) ng/mL Urine Fentanyl Screen (Not Detect) Ur Barbiturates Screen (Not Detect) Ur Phencyclidine Scrn (Not Detect) Ur Amphetamines Screen (Not Detect) U Benzodiazepines Scrn (Not Detect) Urine Cocaine Screen (Not Detect) U Marijuana (THC) Screen (Not Detect) Ethyl Alcohol mg/dL Critical Care Time Critical Care Time Critical Care Time: Yes Total Critical Care Time: 75 Attestation: I have personally provided critical care time. Time includes review of lab data, radiology results, discussion with consultants, and monitoring for potential decompensation. Intervention performed as documented. Discharge Plan Discharge Clinical Impression: Insomnia, Anxiety, Cellulitis of left leg, Torsades de pointes Patient Disposition: Admitted As Inpatient Interventions: Admission Worksheet (ED) Last Done: 12/06/24 16:28 Discharge Date/Time: 12/06/24 20:07
[2024-12-06 02:15] LABS: Amphetamine Screen Urine Not Detected (Not Detect); Barbiturates, Urine Not Detected (Not Detect); Benzodiazepines Screen Urine Not Detected (Not Detect); Buprenorphine Scr Not Detected (Not Detect); Cannabinoid Screen Urine Not Detected (Not Detect); Cocaine Screen Urine Not Detected (Not Detect); Fentanyl, urine Not Detected (Not Detect); Methadone Screen, Urine Not Detected (Not Detect); Opiate Screen Urine Not Detected (Not Detect); Oxycodone Screen Urine Positive (Not Detect); Phencyclidine Screen Urine Not Detected (Not Detect)
[2024-12-06] MEDS: oxyCODONE HCl Immed Release 5 MG TABLET PO ×2 (02:22→21:05)
[2024-12-06] MEDS: QUEtiapine Fumarate 50 MG TABLET PO (02:22)
--- OUTSIDE RECORDS SUMMARY | 2024-12-06 02:29 | XMS_ITS | Data Portability ---
Author Organization [facility] Electronifie [facility] Main Office Address 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 Name Role Phone EUGENIA FLOWER - 2ND FLOOR OTHER Assessment Encounter Date Assessment Date Assessment LastModified by Organization Details LastModified Time 04/08/2024 04/08/202404/05 na 139 k 5 cre 1.27 wbc 6.8 hgn 9.7 hct 31.1 Not available 04/08/2024 12:35:37 04/11/2024 04/11/202404/05 na 139 k 5 cre 1.27 wbc 6.8 hgn 9.7 hct 31.1 [email or web address] Not available 04/11/2024 21:51:17 04/18/2024 04/18/202404/05 na 139 k 5 cre 1.27 wbc 6.8 hgn 9.7 hct 31.1 [email or web address] Not available 04/18/2024 13:49:59 04/19/2024 04/19/202404/05 na 139 k 5 cre 1.27 wbc 6.8 hgn 9.7 hct 31.1 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 assessment, dx, referral, [...] Address Organization Details Recorded Time Depressive disorder 12839337 Active 2023 HOLDEN LAURENT [address], [address], [place], [address], [facility] 4 12:24:02 Atrial fibrillation 97972339 Active 2023 HOLDEN LAURENT [address], [address], [place], [address], [facility] 4 12:24:20 Obstructive sleep apnea syndrome 60407167 Active 2023 HOLDEN LAURENT [address], [address], [place], [address], [facility] 4 12:24:31 Asthma 221813928 Active 2023 HOLDEN LAURENT [address], [address], [place], [address], [facility] 4 12:24:36 Hypertensive disorder 30893550 Active 2023 HOLDEN LAURENT [address], [address], [place], [address], [facility] 4 12:24:41 Hyperlipidemia 65476018 Active 2023 HOLDEN LAURENT [address], [address], [place], [address], [facility] 4 12:24:47 Retention of urine 070552429 Active 2023 HOLDEN LAURENT [address], [address], [place], [address], [facility] 4 12:24:53 Opioid dependence 27356804 Active 2023 HOLDEN LAURENT [address], [address], [place], [address], [facility] 4 12:25:08 Diabetes mellitus 70509516 Active 2023 HOLDEN LAURENT [address], [address], [place], [address], [facility] 4 12:25:14 Congestive heart failure 84484872 Active 2023 HOLDEN LAURENT [address], [address], [place], [address], [facility] 4 12:25:21 Gastroesophage al reflux disease 338622591 Active 2023 HOLDEN LAURENT [address], [address], [place], [address], [facility] 4 12:25:30 Hypothyroidism 16195523 Active 2023 HOLDEN LAURENT [address], [address], [place], [address], [facility] 4 12:25:37 Cellulitis 702133092 Active 2023 HOLDEN LAURENT [address], [place], [address], [facility] 4 12:26:22 Arterial insufficiency 589960597 Active 2023 HOLDEN LAURENT [address], [place], [address], [facility] 4 12:26:37 Problem Notes None recorded. Medical Equipment None Reported. Allergies Allergen ID Allergen Name Allergen Category Reaction Reaction Severity Criticality Documentation Date Start Date Code Code System Note Provider Name and Address Organization Details Recorded Time 94632 codeine medicatio n Not available Not available [...] Updated DateTime 4 152.4 cm 48.5 kg/m2 264217. 27 g 53 /min 18 /min 98.6 [degF] 98 % 98 % 149 mm[Hg] 77 mm[Hg] Genny Aguilar MD [address] [facility], [address], [place], [address], [facility] 4 21:34:16 Date Recorded Body height Heart rate Respiratory rate Body temperature Oxygen saturation Oxygen saturation in Arterial blood by Pulse oximetry Systolic blood pressure Diastolic blood pressure Provider Name and Address Organization Details Last Updated DateTime 4 152.4 cm 54 /min 18 /min 98.1 [degF] 96 % 96 % 175 mm[Hg] 90 mm[Hg] IBETH PRICE NP [address] [facility] [facility], [address], [place], [address], [facility] 4 13:49:23 Date Recorded Body height Body mass index (BMI) Body weight Heart rate Respiratory rate Body temperature Oxygen saturation Oxygen saturation in Arterial blood by Pulse oximetry Systolic blood pressure Diastolic blood pressure Provider Name and Address Organization Details Last Updated DateTime 4 152.4 cm 48.4 kg/m2 275559. 91 g 68 /min 18 /min 98.1 [degF] 96 % 96 % 132 mm[Hg] 72 mm[Hg] Raiza Madsen NP [address] [facility], [address], [place], [address], [facility] 4 08:19:33 Social History Question Answer Notes LastModified by Organizat ion Details LastModified Time Tobacco Smoking Status Never Smoker Genny Aguilar MD [address] 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 Information not available 04/11/2024 What Was [...] SNOMED-CT Code Diagnosis ICD10 Code Diagnosis Note [id number] HOLDEN LAURENT [address] [address] 04/08/2024 12:12:39 04/13/2024 15:07:34 Cellulitis 659708584 L03.90 completed antbx for LE cellulitis in ED = did not feel it was recurrence of an acute infectionh /o chronic lymphedema -monitor ss of infection- bacitracin topical to BL legs daily-oxyc odone 5 mg q6h prn for pain Arterial insufficiency 016081831 I77.1 -f/up with vascular per recs needs to be arranged-s ee above Retention of urine 31442 4002 R33.9 unable to urinate since [facility]-w ill order PVR, SC for PVR >400 cc Atrial fibrillation 4943 6004 I48.91 carrying dx-amiodar one 200 mg daily-eliq uis 5 mg bid-monito r HR and bleeding Hypertensive disorder 38 926795 I10 carrying dx-amlodip ine 10 mg daily-leonardo tor BP Depressive disorder 3548 9007 F32.A carrying dx-duloxet ine 20 mg daily-paxi l 40 mg daily-leonardo tor mood and affect-psy ch eval prn Congestive heart failure 95688013 I50.9 carrying dxnot on diuretics- metoprolol 50 mg daily-farx iga 10 mg daily-leonardo tor fluid status closely-da sacha weights Diabetes mellitus 009560 09 E11.9 carrying dxjardianc e was given once in hospital, dont see it on her home med list or dc med list = asked nursing to ask dtr-lantus 65 units HS-monitor accuchecks TID Hypothyroidism 01243399 E03.9 carrying dx-synthro id 50 mcg po in am-TSH/T4 prn Hyperlipidemia 64185939 E78.5 carrying dx-lipitor 80 mg daily Gastroesop hageal reflux disease 938758360 K21.9 carrying dx-omepraz ole 40 mg po daily Obstructiv e sleep apnea syndrome 96514824 G47.33 intermitte nt CPAP use at home Opioid dependence 185887 00 F11.20 -monitor needed support in community- on oxycodone for leg pain = monitor usage and wean as tolerated Dermal mycosis 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 Arterial insufficiency 834274499 I77.1 F/U with vascular as planned.Mo nitor circulatio n. Retention of urine 88336 4002 R33.8 Improved, continue to monitor. Atrial fibrillation 4943 6004 I48.0 Rate in good control on amiodarone 200 mg daily and metoprolol 50 mg daily.Cont inue eliquis 5 mg BID for AC.Monitor HR and bleeding risk. Hypertensive disorder 38 218821 I10 Fair control on amlodipine 10 mg daily and metoprolol 50 mg daily.Leonardo tor BP and labs. Depressive disorder 3548 9007 F33.8 Mood good tonight, aside form wanting to go home.Nicanor nue duloxetine 20 mg daily, paroxetine 40 mg daily, trazadone 50 mg at bedtime, and melatonin 5 mg at bedtime.[place] moodPsych consult prn Congestive heart failure 49922190 I50.32 Appears euvolemic. Continue meds as above and Farxiga 10 mg daily.Leonardo tor resp. status, fluid status, wts and labs. Diabetes mellitus 483458 09 E11.9 In good control since here.Nicanor nue lantus 65 units daily and Farxiga 10 mg daily.Leonardo tor accuchecks TID Hypothyroidism 83785678 E03.8 Continue levothyrox ine 50 mcg dailyMonit or TSH prn. Hyperlipidemia 08688318 E78.49 Continue atorvastat in 80 mg dailyMonit or labs as outpt. Gastroesop hageal reflux disease 315857826 K21.9 No current sxs.Contin ue omeprazole 40 mg dailyMonit or GI sxs. Obstructiv e sleep apnea syndrome 98441804 G47.33 Continue CPAP with sleep.F/U prn. Opioid dependence 635660 00 F11.20 On oxycodone chronicall y.Monitor use and f/u with pcp as planned. Candidiasis of vagina 72 829920 B37.31 Not improving with nystatin.W ill start diflucan 150 mg x 1 and repeat in 1 wk. [id number] IBETH PRICE NP [address] [address] 04/18/2024 08:27:20 04/19/2024 14:02:05 Cellulitis 913019640 L03.116 Improved. now with healing woundsdiph enhydramin [...] BMP x 1 in am Arterial insufficiency 440473331 I77.1 F/U with vascular as planned.Mo nitlindsay merazRefer to [facility] Wound clinic for outpt. mgmt. upon d/c. Retention of urine 74804 4002 R33.8 Improved, continue to monitor. Atrial fibrillation 4943 6004 I48.0 Rate in good control on amiodarone 200 mg daily and metoprolol 50 mg daily.Cont inue eliquis 5 mg BID for AC.Monitor HR and bleeding risk. Hypertensive disorder 38 987577 I10 Fair control on amlodipine 10 mg [...] [place] moodPsych consult prn Congestive heart failure 30806332 I50.32 Appears euvolemic. Continue meds as above and Farxiga 10 mg daily.Leonardo tor resp. status, fluid status, wts and labs. Diabetes mellitus 143462 09 E11.9 In fair control since here.Nicanor nue lantus 65 units daily and Farxiga 10 mg daily.Leonardo tor accuchecks TID Hypothyroidism 88351367 E03.8 Continue levothyrox ine 50 mcg dailyMonit or TSH prn. Hyperlipidemia 29359027 E78.49 Continue atorvastat in 80 mg dailyMonit or labs as outpt. Gastroesop hageal reflux disease 737861727 K21.9 No current sxs.Contin ue omeprazole 40 mg dailyMonit or GI sxs. Obstructiv e sleep apnea syndrome 17355048 G47.33 Continue CPAP with sleep.F/U prn. Opioid dependence 341798 00 F11.20 On oxycodone chronicall y.Monitor use and f/u with pcp as planned. Candidiasis of vagina 72 849466 B37.31 Not improving with nystatin.D iflucan 150 mg x 1 given, to repeat in 1 wk. [id number] Raiza Madsen NP [address] [address] 04/19/2024 08:18:47 04/20/2024 13:31:13 Cellulitis 225418545 L03.116 resolved with abx in hospitalno w [...] pcp, and wound clinica oupt Arterial insufficiency 572257983 I77.1 F/U with vascular as planned.Re marichuy to [facility] Wound clinic for outpt. mgmt. upon d/c. (referral given)vna services outpt with pcp to follow outpt with wound clinic Retention of urine 81500 4002 R33.8 Improved, continue to monitor. Atrial fibrillation 4943 6004 I48.0 Rate in good control on amiodarone 200 mg daily and metoprolol 50 mg daily.Cont inue eliquis 5 mg BID for AC.Monitor outpt with pcp and cardiology outpt Hypertensive disorder 38 270893 I10 hospital dc'd losartan 50 mg po [...] outptPsych consult prn outpt Congestive heart failure 91888547 I50.32 Appears euvolemic. Continue meds as above and Farxiga 10 mg daily.Leonardo tor outpt with pcp Diabetes mellitus 321403 09 E11.9 In fair control since here. 100-200s? if higher 200s related to infectiona lso glipizide and metformin was dc in hosp for ckd, monitor for need to add with pcp outptConti nuelantus 65 units dailyFarxi ga 10 mg daily.Leonardo tor accuchecks TID at home and bring log to pcp on 04/26/24. Hypothyroidism 77924501 E03.8 Continuele vothyroxin e 50 mcg dailyMonit or TSH prn outpt withpcp Hyperlipidemia 74995695 E78.49 Continue atorvastat in 80 mg dailyMonit or labs as outpt. Gastroesop hageal reflux disease 305852291 K21.9 No current sxs.Contin ueomeprazo le 40 mg dailyMonit or GI sxs. outpt with pcp Obstructiv e sleep apnea syndrome 45267044 G47.33 Continue CPAP with sleep.F/U prn outpt prn Opioid dependence 591891 00 F11.20 On oxycodone chronicall y.will cont on home dose and since on chronicall y will not send with any additional oxycodoneM onitor use and f/u with pcp as planned outpt Candidiasis of vagina 72 209099 B37.31 Not improving with nystatin.D iflucan 150 mg x 1 given at rehabmonit or with pcp outpt Chronic ki dney disease 158185005 N18.9 ckd per hosp paperwork with meds adjusted:g lipizide, losartan, furosemide , and metformin were dc'dlabs as above stablemoni tor labs and need to adjust outpt with pcp Pain in le ft lower limb 014025529 M79.605 addendumpbernice was ready for discharge and now reporting left lower leg pain and states she can't put weight on itwhen attempting to get dressed for homefamily refuses therapy eval and xray here,famil y requests 911 call, and emergent evaluation at [facility] Health Concerns Section Related Observation LastModified by Organization Detai ls LastModified Time None Recorded Concern Status LastModified by Organization Details LastModified Time None Recorded Advance Directives Directive Y: Payers Encounter Date Sequence Insurance Name Policy Number Policy Meza Covered Member ID Meza Member ID Guarantor Name 04/08/2024 1 [facility] - DOS ON OR AFTER 2022 - MEDICARE [place]VANTAGE [place]ARE [place]/ADV ANTAGE - PPO) Mary Lou Cisneros [id number] Mary Lou Cisneros 04/11/2024 1 [facility] - DOS ON OR AFTER 2022 - [place]/ADV ANTAGE - PPO) Mary Lou Cisneros [id number] Mary Lou Cisneros 04/18/2024 1 [facility] - DOS ON OR AFTER 2022 - [place]/ADV ANTAGE - PPO) Mary Lou Cisneros [id number] Mary Lou Cisneros 04/19/2024 1 [facility] - DOS ON OR AFTER 2022 - [place] RE[place]/ADV ANTAGE - PPO) Mary Lou Cisneros [id number] Mary Lou Cisneros Notes Date Note Type Note Provider Name and Address Organization Details Recorded Time 04/08/2024 text/html Patient is a 73 yo female being seen for initial intake visit. She presented to [facility] for eval of left leg pain. [...] PT and was recommended for transfer to [facility] for continued care and rehab. On arrival from hospital patient reporting to nursing that she hasnt urinated. No report of this occurring while she was at [facility] and she did not have a lovelace. She reports she feels like she has to urinate, asked nursing to get a bladder scan now to assess. Patient has pain to legs chornic, left more than right. 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 [facility], [address], [place], [address], [facility] 04/08/2024 13:05:26 04/11/2024 text/html This is a 73 yo woman who is here for rehab after an ED visit for left leg pain after recovery from recent cellulitis.[facility] txed with ceftriaxone and [...] for most activities.I see her with a yakut speaking staff member.She is in bed, wakes [...] OA, OP, and fibromyalgia. Genny Aguilar MD [address] [place] [address], [address], [place], [address], [facility] 04/14/2024 20:04:50 04/18/2024 text/html This is a 73 yo woman who is here for rehab after an ED visit for left leg pain after recovery from recent cellulitis.[facility] txed with ceftriaxone and [...] urge incontinence, OA, OP, and fibromyalgia. IBETH PRICE NP [address] [facility], [address], [place], [address], [facility] 04/18/2024 14:21:33 04/19/2024 text/html This is a [...] note per records:[facility], txed with ceftriaxone and [...] outpt with pcp She was transferred to [facility] for rehab on 04/08 and working with rehab showing improvement and felt she is stable to discharge home. Vitals stable here and BP labile, last at 132/72 this am. While at [facility] she was seen by the wound [...] 2024. She will be picked up by [facility] @ 1:00 PM. A referral has been made to [facility] for ongoing skilled services. She will [...] 2024. She will be picked up by [facility] @ 1:00 PM. A referral has been made to [facility] for ongoing skilled services. She will [...] she goes home from ER. discussed with hr administrator at facility Raiza Madsen NP [address] [facility], [address], [place], [address], [facility] 04/19/2024 13:13:44 OBGyn Episode No OBEpisode recorded.
--- OUTSIDE RECORDS SUMMARY | 2024-12-06 02:29 | XMS_ITS | Data Portability ---
Author Organization [employer] [place] - [employer] ([employer]) Address [address] [place] [address] Care Team Providers Care Supervisor Smoke Control Name Role Phone HIM CCA OTHER CRUZ MAURICE Primary Care Provider [phone] Assessment Encounter Date Assessment Date Assessment LastModified by Organization Details LastModified Time 02/09/2024 02/09/2024 I provided real -time medical direction via phone for this encounter, and was available for additional phone based assistance as needed. I have reviewed and agree with the Assessment and Plan as documented by the Mobile Manager. We discussed the diagnostic uncertainty of [...] to call 911- verbalized understanding of instruction [email or web address] Not available 02/10/2024 00:01:48 03/27/2024 03/27/2024 I provided real -time medical direction via phone for this encounter, and was available for additional phone based assistance as needed. I have reviewed and agree with the Assessment and Plan as documented by the Mobile Manager. We discussed the diagnostic uncertainty of [...] to call 911- verbalized understanding of instruction [email or web address] Not available 03/27/2024 16:48:02 05/29/2024 05/29/2024 service [...] in the field was performed by my hoistman colleague, as noted above, I provided real-time [...] Appointments None recorded. Lab culture, urine 2023 [place] [facility] (Centralized Electronic Ordering - All Locations), Patient Can Go To The Location Of Their Choice, [id number] 4 08:09:10 urinalysis, dipstick 2023 [facility], [address] [place] [address], [id number] 4 20:30:58 glucose, fingerstick , blood 2023 024 [email or web address] 0 [facility], [address] [place] [address], [id number] 4 16:33:19 Referral None recorded. Procedures None recorded. Surgeries None recorded. Imaging None recorded. Medication Orders Ciprodex 0.3 %-0.1 % ear drops,suspe nsion 2024 025 [facility], [address] [place] [address], [id number], 5 12:33:11 clotrimazol e 1 % topical cream 2023 024 [facility], [address] [place] [address], [id number], 4 10:37:01 bacitracin 500 unit/gram topical ointment 2023 024 [email or web address] 0 [facility], [address] [place] [address], [id number], 4 11:28:20 bacitracin 500 unit/gram topical ointment 2023 024 [facility], [address] [place] [address], [id number], 4 14:30:32 doxycycline hyclate 100 mg tablet 2023 024 [email or web address] 0 [facility], [address] [place], [place], [id number], 16:35:58 doxycycline hyclate 100 mg capsule 2023 024 [id number], [address] [place], [address], 4 16:36:03 mupirocin 2 % topical ointment 2023 024 [id number], [address] [place], [address], 4 16:36:03 Patient TargetsNo targets recorded. Patient Instructions Encounter Date Encounter Id Patient Instructions Last Modified By Organization Details Last Modified Time 02/09/2024 [id number] wound care* [email or web address] Not available 16:35:58 03/27/2024 [id number] wound care* [email or web address] Not available 11:28:21 Reason for Referral None Reported. Results Created Date Observation Date Name Description Value Unit Range Abnormal Flag Note LastModifiedBy Organization Detail LastModifiedTime 02/09/2002/09/2024 gluco se, gemma rene, blood Blood Glucose: mg/dl 148 Not Available [facility] - [facility] [address] [place] [address], [id number] 02/09/2024 16:30:22 05/29/20 24 05/31/2024 URINE CULTU RE,CO MPREH ENSIV E urine culture,comp rehensive Final report Not Available [facility] ([facility]) [address] [facility], [place], [address], 05/31/2024 08:09:10 05/29/2005/31/2024 URINE CULTU RE,CO MPREH ENSIV E result 1 COMMEN T Mixed uroge nital mary Great er than 100,0 00 colon y formi ng units per mL Not Available [facility] ([facility]) [address] [facility], [place], [address], 05/31/2024 08:09:10 Result Notes None recorded. Medical Equipment None Reported. Allergies Allergen ID Allergen Name Allergen Category Reaction Reaction Severity Criticality Documentation Date Start Date Code Code System Note Provider Name and Address Organization Details Recorded Time 5119 codeine medicatio n Not available Not available Not available 12/30/2023 2670 RxNorm Radha Foster MD [address] [facility],[address], [place], [address], [facility] - [employer], [employer] 14:14:47 Medications Name Sig Start Date Stop [...] Not Available Not Available Not Available [employer] [place] Lite kit USE DIRECTED TO TEST BLOOD [...] Available No t Available [employer] [place] USE DIRECTED EVERY 8 HOURS active Not [...] [degF] 16 /min 92 % 92 % 643255. 184 g 126 mm[Hg] 76 mm[Hg] Not Available [employer] 4 16:16:18 Date Recorded Body temperature Oxygen saturation Oxygen saturation in Arterial blood by Pulse oximetry Body weight Respiratory rate Heart rate Systolic blood pressure Diastolic blood pressure Provider Name and Address Organization Details Last Updated DateTime 4 97.6 [degF] 96 % 96 % 802666. 592 g 16 /min 62 /min 130 mm[Hg] 66 mm[Hg] Not Available [employer] 4 15:32:02 Date Recorded Respiratory rate Oxygen saturation Oxygen saturation in Arterial blood by Pulse oximetry Body height Heart rate Body temperature Body weight Systolic blood pressure Diastolic blood pressure Provider Name and Address Organization Details Last Updated DateTime 4 16 /min 94 % 94 % 157.48 cm 60 /min 98.7 [degF] 277528. 448 g 129 mm[Hg] 77 mm[Hg] Not Available [employer] 4 11:19:40 Date Recorded Heart rate Body height Body temperature Respiratory rate Oxygen saturation Oxygen saturation in Arterial blood by Pulse oximetry Body weight Systolic blood pressure Diastolic blood pressure Provider Name and Address Organization Details Last Updated DateTime 4 58 /min 134.62 cm 99.3 [degF] 16 /min 95 % 95 % 873796. 632 g 150 mm[Hg] 73 mm[Hg] Not Available [employer] 4 17:02:13 Date Recorded Body temperature Respiratory [...] SNOMED-CT Code Diagnosis ICD10 Code Diagnosis Note [id number] Radha Foster MD Main - [facility] [address] [place] [address] 12/30/2023 14:10:14 12/31/2023 21:23:21 Cellulitis of lower limb [id number] L03.119 left lower leg primarily ? starting on right- has percocet 10/325 q 12 hrs- may have otc tylenol 2 x per day in between-[facility] confirms he has regular Tylenol at [...] better staph coverage-a dvised to apply sparingly. [id number] Radha Foster MD Main - [facility] [address] [place] [address] 02/09/2024 16:16:11 02/10/2024 13:33:55 Cellulitis of lower limb [id number] L03.119 left lower leg primarily, less on right- had percocet 10/325 q 12 hrs- no longer on med list-may have otc tylenol 4 x per day in between-da [facility] confirms he has regular Tylenol at [...] better staph coverage-a dvised to apply sparingly. [id number] Angely Lake MD Main - [address] [address] 02/23/2024 15:31:54 02/23/2024 22:21:20 Peripheral vascular disease 831808303 I73.9 73 year old female being evaluated [...] assessment and plan as documented by the hoistman. I provided real-time medical direction for this encounter and was immediatel y available to provide additional phone-base d assistance as needed. We discussed the diagnostic uncertaint y of home visits and associated risks. We discussed the need to seek care urgently/e mergently in the setting of any new or worsening symptoms. [id number] Radha Foster MD Main - [address] [address] 03/27/2024 11:19:23 03/27/2024 22:47:07 Wound of skin 232909744 T14.8XXA Advised to elevate the leg/not use [...] reviewed she is only allergic to codeine. [id number] Len Nguyen MD Main - [address] [address] 05/29/2024 17:02:10 05/30/2024 10:24:58 Kelsi mckeon 207143858 B35.6 Urinary symptoms 4517144 08 R39.9 [id number] Michelle Rg MD Main - [facility] [address] [place] [address] 09/25/2024 17:25:19 09/26/2024 08:34:36 Otitis externa of right ear [id number] 413108 H60.91 Health Concerns Section Related Observation LastModified by Organization Detai ls LastModified Time None Recorded Concern Status LastModified by Organization Details LastModified Time None Recorded Advance Directives Directive None Recorded Payers Encounter Date Sequence Insurance Name Policy Number Policy Meza Covered Member ID Meza Member ID Guarantor Name 02/09/2024 1 [facility] - DOS ON OR AFTER 2022 - DUAL ELIGIBLE - RETIREMENT OPTIONS AND ONE CARE (MEDICARE REPLACEMENT/ADV ANTAGE - HMO) Mary Loujack Garnero Cis[employer] [id number] Mary Lou Garnero Cisneros 02/23/2024 1 [facility] - DOS ON OR AFTER 2022 - DUAL ELIGIBLE - RETIREMENT OPTIONS AND ONE CARE (MEDICARE REPLACEMENT/ADV ANTAGE - HMO) Mary Loujack Garnero Cisneros [id number] Mary Lou Garnero Cisneros 03/27/2024 1 [facility] - DOS ON OR AFTER 2022 - DUAL ELIGIBLE - RETIREMENT OPTIONS AND ONE CARE (MEDICARE REPLACEMENT/ADV ANTAGE - HMO) Mary Loujack Garnero Cisneros [id number] Mary Lou Garnero Cisneros 05/29/2024 1 [facility] - DOS ON OR AFTER 2022 - DUAL ELIGIBLE - RETIREMENT OPTIONS AND ONE CARE (MEDICARE REPLACEMENT/ADV ANTAGE - HMO) Mary Loujack Garnero Cis[employer]os [id number] Mary Lou Garnero Cis[employer]os 09/25/2024 1 [facility] - DOS ON OR AFTER 2022 - DUAL ELIGIBLE - RETIREMENT OPTIONS AND ONE CARE (MEDICARE REPLACEMENT/ADV ANTAGE - HMO) Mary Lou Sonido Cisneros [id number] Mary Lou Garnero [employer]is[employer] Notes Date Note Type Note Provider Name and Address Organization Details Recorded Time 02/09/2024 text/html HPI: PMHx: Varicose veinsCall returned to [facility] to triage below. Reports pt having rash [...] any additional information to process this visit. Mobile Manager POC Test Results from Jerman Anderson [facility] Blood Glucose Measurement (16:42:48) Blood Glucose: 148 mg/dL .................... .................... .................... .................... .................... .................... .................... . Mobile Manager Note From Jerman Anderson: Smartcare visit for female patient with cellulitis. Pt presents conscious and alert. Pt Uzbek speaking only so daughter translated. Daughter reports that patient has had cellulitis for some time, [facility] and [...] as well. Blood glucose assessed. Consulted with [facility] [place] Foster who prescribed additional course of [...] in the office. Radha Foster MD [address] [facility],[address], [place], [address], [facility] [place] 02/10/2024 00:01:57 02/23/2024 text/html [...] and placed visit for .Prescribed doxy at [facility] visit .................... .................... .................... .................... .................... .................... .................... . CRC Nurse Triage Notes (Nicole Bell): Comments: CRC RN DID NOT NEED FURTHER INFO .................... .................... .................... .................... .................... .................... .................... . Mobile Manager Note From Abelardo Castro: Pt daughter concerned for wound/celilitis on legs not healing after antibiotic treatment. Pt denies fever pain edema or wheeping. Baseline vitals assessed. Cellulitis appears to be in healing stages. No bleeding or wheeping. Pictures uploaded. Pt sts has appt with pcp on Wednesday. . [facility] contacted and [facility] spoke with pt and advised to monitor for worsening redness or edema. Pt advised to follow up with pcp. Pt education on signs indicating the ER. .................... .................... .................... .................... .................... .................... .................... . Disposition: Fulfilled Angely Lake MD [address] [facility],[address], [place], [address], [employer] 02/23/2024 21:33:16 03/27/2024 text/html CRC Nurse Triage Notes (Rishi Domínguez): Reason For Request: left leg pain Chief Complaints: Pain PMH: Diabetes, Hypertension, COPD/Asthma Other Allergies: NKDA Comments: Cutter Head Sharpener verified the member's name//address and phone number. [...] .................... .................... .................... .................... .................... .................... . Mobile Manager Note From Markell Villagomez: Pt? s daughter/CG reports pt was seen at [facility] last week for cellulitis of the [...] .................... . Disposition: Fulfilled Radha Foster MD [address] [place] [address],[address], [place], [address], [employer] [facility] [place] 03/27/2024 16:49:56 05/29/2024 text/html HPI: pmhx: UTI, [...] Unable to bring pt to WIC at [facility] as pt is bed bound. Agrees to [employer] referral. Confirmed address, contact number and allergies. .................... .................... .................... .................... .................... .................... .................... . CRC Nurse Triage Notes (Melinda Melvin): Chief Complaints: Rash, UTI/Pyelonephritis PMH: COPD/Asthma, Diabetes, Hypertension, COPD/Asthma Other Allergies: CODIENE Comments: CRC RN did not require any additional information to process this visit. Mobile Manager Organization Information for Jerman Anderson Business Legal Name: [employer]? Address: [address] [place] [address], [place] [employer] Manager: Jhon Strickland MD [facility] No.: [id number] Mobile Manager POC Test Results from Jerman Anderson [...] .................... .................... .................... .................... .................... .................... . Mobile Manager Note From Jerman Anderson: Smartcare visit for female pt. Pt presents with family and SAMPLE WRAPPER. Pt has reportedly had redness and irritation in her groin for 1 week in addition to high blood sugars. V/S taken as listed. Pt afebrile, though temp seems to be elevated with pt having taken acetaminophen today. SAMPLE WRAPPER changed pt's diaper and redness was noted in addition to smell consistent with possible fungal infection. Obtained urine sample positive for leukocytes and nitrates and blood and glucose. Blood glucose elevated at 335 mg/dL. Family reports difficulty maintaining blood sugar and that pt has not adhered to dietary restrictions. Urine culture obtained. Consulted with [facility] [place]. Nguyen who prescribed clotrimazole and ordered urine culture. Reviewed red flags for ED. Pt education provided. Culture delivered to [facility]. [facility] Lab Orders: culture, urine: Performed .................... .................... .................... .................... .................... .................... .................... . Disposition: Fulfilled Len Nguyen MD [address] [place] [address],[address], [place], [address], [facility] 05/29/2024 22:50:45 09/25/2024 text/html CRC Nurse Triage [...] s/s and seek emergency treatment if needed. Mobile Manager Organization Information for Markell Villagomez Business Legal Name: [facility] Address: [address] [place], [place] [address] [address], [place] [employer] Manager: Rob HERNANDEZ No.: [id number] Mobile Manager POC Test Results from Markell Villagomez [...] reported s/s and seek emergency treatment if needed.[facility] HPI: known FM, chronic pain, uses oxycodone and gabapentin for this. 3-7d R ear pain. some sinus congestion .................... .................... .................... .................... .................... .................... .................... . Mobile Manager Note From Markell Villagomez: This 74-year-old [...] .................... .................... .................... .................... .................... .................... . [facility] Consulted: Michelle Rg .................... .................... .................... .................... .................... .................... .................... . Disposition: Fulfilled Michelle Rg MD [address] [facility],[address], [place], [address], TINO GONZALEZ 09/25/2024 18:01:43 OBGyn Episode No OBEpisode recorded.
--- OUTSIDE RECORDS SUMMARY | 2024-12-06 02:30 | XMS_ITS | Encounter Summary ---
Author Organization [employer] Address [address] [facility] [address] [place] [address] Care Team Providers Care Administration Vice President Name Role Phone Amanda Watkins MD Primary Care Provide r Hiro Ram BRIM GREASER OPERATOR Unavailable Unavailable Raad Arias PharmD Unavailable [phone] Reason for Visit * Reason Onset Date Comments Hospital Follow-up 03/23/2024 Encounter Details Date Type Department Care Team (Late st Contact Info) Description 03/23/2024 Telephone [facility] [address] [place] [address] Amanda Watkins MD [address] [place], [place] [phone] Hospital Follow-up Social History Tobacco Use Types [...] from pt requesting a HDF appt. Hospital: [facility] Date of admission: 03/18 Discharge date: 03/21 Diagnosed: Cellulitis documented in this encounter Plan of Treatment Upcoming Encounters Date Type Department Care Team (Late st Contact Info) Description 12/20/2024 3:30 PM EDT Telemedicine [facility] [address] [place] [address] Raad Arias, PharmD [address] [place] [address] documented as of this encounter Visit Diagnoses Not on filedocumented in this encounter Additional Health Concerns Assessment Noted Time PHQ-9 Depression Total Score: 10 024 3:23 PM EDT documented as of this encounter Care Teams Administration Vice President Relationship Specialty Start Date End Date Amanda Watkins MD [address] [place] [address] PCP - General Family Medicine 04/07/19 Hiro Ram FNP [address] [place] [address] Nurse Practitioner Family Medicine 07/06/23 Raad Arias, Carlos [address] [place] [address] Pharmacist Internal Medicine 10/19/24 [facility] 07/03/22 08/16/24 Ja [facility] 08/10/24 documented as of this encounter
--- OUTSIDE RECORDS SUMMARY | 2024-12-06 02:30 | XMS_ITS | Encounter Summary ---
Author Organization [employer] Address [address] [facility] [address] [place] [address] Care Team Providers Care Value Stream Manager Name Role Phone Amanda Watkins MD Primary Care Provide r Hiro Ram Unavailable Unavailable Raad Arias PharmD Unavailable [phone] Reason for Visit * Reason Onset Date Comments Durable Medical Equipment 07/26/2024 Encounter Details Date Type Department Care Team (Late st Contact Info) Description 07/26/2024 Telephone [facility]INE [address] [place] [address] Amanda Watkins MD [address] [place] [address] Durable Medical Equipment Social History Tobacco Use [...] Daughter calling in regards to DME stating [place] [employer] supply stating they do not take pt's insurance and was advised to have equipment send to another supply pharmacy. DME: Wipes Bed Pads Adult Diapers documented in this encounter Plan of Treatment Upcoming Encounters Date Type Department Care Team (Late st Contact Info) Description 12/20/2024 3:30 PM EDT Telemedicine [facility] MED[facility]INE [address] [place] [address] Raad Arias, PharmD [address] [place] [address] documented as of this encounter Visit Diagnoses Not on filedocumented in this encounter Additional Health Concerns Assessment Noted Time PHQ-9 Depression Total Score: 10 024 3:23 PM EDT documented as of this encounter Care Teams Value Stream Manager Relationship Specialty Start Date End Date Amanda Watkins MD [address] [place] [address] PCP - General Family Medicine 04/07/19 Hiro Ram FNP [address] [place] [address] Nurse Practitioner Family Medicine 07/06/23 Raad Arias, TheaD [address] [place] [address] Pharmacist Internal Medicine 10/19/24 [facility] 07/03/22 08/16/24 Ja [facility] 08/10/24 documented as of this encounter
--- OUTSIDE RECORDS SUMMARY | 2024-12-06 02:30 | XMS_ITS | Encounter Summary ---
Author Organization [employer] Address [address] [facility] [address] [place] [address] Care Team Providers Care Food Processing Plant Manager Name Role Phone Amanda Watkins MD Primary Care Provide r Hiro Ram SOUND TECHNICIAN Unavailable Unavailable Raad Arias PharmD Unavailable [phone] Encounter Details Date Type Department Care Team (Late st Contact Info) Description 06/27/2024 Orders Only [facility] MEDICINE [address] [place] [address] Amanda Watkins MD [address] [place] [address] Social History Tobacco Use Types Packs/Day Years [...] Info) Description 12/20/2024 3:30 PM EDT Telemedicine [facility] [address] [place] [address] Raad Arias, PharmD [address] [place] [address] documented as of this encounter Visit Diagnoses Not on filedocumented in this encounter Additional Health Concerns Assessment Noted Time PHQ-9 Depression Total Score: 10 024 3:23 PM EDT documented as of this encounter Care Teams Food Processing Plant Manager Relationship Specialty Start Date End Date Amanda Watkins MD [address] [place] [address] PCP - General Family Medicine 04/07/19 Hiro Ram FNP [address] [place] [address] Nurse Practitioner Family Medicine 07/06/23 Raad Arias, TheaD [address] [place] [address] Pharmacist Internal Medicine 10/19/24 [facility] 07/03/22 08/16/24 Ja [facility] 08/10/24 documented as of this encounter
--- OUTSIDE RECORDS SUMMARY | 2024-12-06 02:30 | XMS_ITS | Encounter Summary ---
Author Organization [employer] Address [address] [facility] [address] [place] [address] Care Team Providers Care Bag Builder Name Role Phone Amanda Watkins MD Primary Care Provide r Hiro Ram RESIDENTIAL ELECTRICIAN Unavailable Unavailable Raad Arias PharmD Unavailable [phone] Reason for Visit * Reason Onset Date Comments Hospital Follow-up 08/16/2024 Encounter Details Date Type Department Care Team (Late st Contact Info) Description 08/16/2024 Telephone [facility] MEDICINE [address] [place] [address] Amanda Watkins MD [address] [place], [place] [phone] Hospital Follow-up Social History Tobacco Use Types [...] from pt requesting a HDF appt. Hospital: [facility] Date of admission: 08/12/24 Discharge date: 08/15/2024 Diagnosed: (water in the lungs) *Send message to [facility] Clinical Care Coordinators documented in this encounter Plan of Treatment Upcoming Encounters Date Type Department Care Team (Late st Contact Info) Description 12/20/2024 3:30 PM EDT Telemedicine [facility] MEDICINE [address] [place] [address] Raad Arias, PharmD [address] [place] [address] documented as of this encounter Visit Diagnoses Not on filedocumented in this encounter Additional Health Concerns Assessment Noted Time PHQ-9 Depression Total Score: 10 024 3:23 PM EDT documented as of this encounter Care Teams Bag Builder Relationship Specialty Start Date End Date Amanda Watkins MD [address] [place] [address] PCP - General Family Medicine 04/07/19 Hiro Ram FNP [address] [place] [address] Nurse Practitioner Family Medicine 07/06/23 Raad Arias, PharmD [address] [place] [address] Pharmacist Internal Medicine 10/19/24 [facility] 07/03/22 08/16/24 Ja [facility] 08/10/24 documented as of this encounter
--- OUTSIDE RECORDS SUMMARY | 2024-12-06 02:30 | XMS_ITS | Clinical Summary ---
Author Organization [facility] Address 100 [facility] 20 0 [place] [address] Phone Care Team Providers Care Fourth Grade Teacher Name Role Phone Amanda Watkins MD [...] Office Visit [facility] [address] [place] [address] Tl Ibarra MD [address] [facility] 204 [place] [address] Health Maintenance Due Date Last Done Comments [...] 06/23/2024, , 09/30/2017, Additional history exists Insurance [facility] ([id number]) [address] [place] [id number] [facility] ([id number]) Care Teams Fourth Grade Teacher Relationship Specialty Start Date End Date Amanda Watkins MD [address] [address] PCP - General Internal Medicine 03/01/23
--- OUTSIDE RECORDS SUMMARY | 2024-12-06 02:30 | XMS_ITS | Encounter Summary ---
Author Organization [employer] Address 75 [facility] 7t [place] [address] Care Team Providers Care Diving Board Assembler Name Role Phone Amanda Watkins MD Primary Care Provide r Hiro Ram Unavailable Unavailable Raad Arias PharmD Unavailable [phone] Reason for Visit * Reason Onset Date Comments Durable Medical Equipment 05/11/2024 Encounter Details Date Type Department Care Team (Late st Contact Info) Description 05/11/2024 Telephone [facility] 230 [place] [address] Amanda Watkins MD 230 [place] [address] Durable Medical Equipment Social History Tobacco Use [...] Info) Description 12/20/2024 3:30 PM EDT Telemedicine [facility] 230 [place] [address] Raad Arias, PharmD 230 [place] [address] documented as of this encounter Visit Diagnoses Not on filedocumented in this encounter Additional Health Concerns Assessment Noted Time PHQ-9 Depression Total Score: 10 024 3:23 PM EDT documented as of this encounter Care Teams Diving Board Assembler Relationship Specialty Start Date End Date Barciona Myers, [place], MD 230 [place] [address] PCP - General Family Medicine 04/07/19 Hiro Ram FNP 230 [place] [address] Nurse Practitioner Family Medicine 07/06/23 Raad Arias, TheaD [address] [place] [address] Pharmacist Internal Medicine 10/19/24 [facility] 07/03/22 08/16/24 Ja [facility]NA 08/10/24 documented as of this encounter
--- OUTSIDE RECORDS SUMMARY | 2024-12-06 02:30 | XMS_ITS | Encounter Summary ---
Author Organization [employer] Address [address] [facility] 7t [place] [address] Care Team Providers Care Dixonac Operator Name Role Phone Amanda Watkins MD Primary Care Provide r Hiro Ram OCCUPATIONAL THERAPY SUPERVISOR Unavailable Unavailable Raad Arias PharmD Unavailable [phone] Reason for Visit * Reason Comments Med Refill Encounter Details Date Type Department Care Team (Late st Contact Info) Description 10/10/2024 Refill [facility] MED & PEDS [address] [place] [address] Amanda Watkins MD 230 [place] [address] Social History Tobacco Use Types Packs/Day Years [...] 12/20/2024 3:30 PM EDT Telemedicine [facility] MEDICINE [address] [place] [address] Raad Arias, PharmD [address] [place] [address] documented as of this encounter Visit Diagnoses Not on filedocumented in this encounter Additional Health Concerns Assessment Noted Time PHQ-9 Depression Total Score: 0 09/01/19 25 1:18 PM EST documented as of this encounter Care Teams Dixonac Operator Relationship Specialty Start Date End Date Amanda Watkins MD [address] [place] [address] PCP - General Family Medicine 04/07/19 Hiro Ram FNP [address] [place] [address] Nurse Practitioner Family Medicine 07/06/23 Raad Arias, PharmD [address] [place] [address] Pharmacist Internal Medicine 10/19/24 Ja ROMEROA 08/10/24 documented as of this encounter
--- OUTSIDE RECORDS SUMMARY | 2024-12-06 02:30 | XMS_ITS | Encounter Summary ---
Author Organization [employer] Address 75 [facility] 7t [place] [address] Care Team Providers Care Soil Checker Name Role Phone Amanda Watkins MD Primary Care Provide r Hiro Ram Unavailable Unavailable Raad Arias PharmD Unavailable [phone] Reason for Visit * Reason Comments Med Refill Encounter Details Date Type Department Care Team (Late st Contact Info) Description 11/18/2023 Refill [facility]INE 230 [place] [address] Hiro Ram FNP Social History Tobacco Use [...] Info) Description 12/20/2024 3:30 PM EDT Telemedicine [facility]INE [address] [place] [address] Raad Arias, PharmD 230 [place] [address] documented as of this encounter Visit Diagnoses Not on filedocumented in this encounter Additional Health Concerns Assessment Noted Time PHQ-9 Depression Total Score: 8 07/19/20 23 11:34 AM EST documented as of this encounter Care Teams Soil Checker Relationship Specialty Start Date End Date Amanda Watkins MD [address] [place] [address] PCP - General Family Medicine 04/07/19 Hiro Ram FNP [address] [place] [address] Nurse Practitioner Family Medicine 07/06/23 Raad Arias, PharmD [address] [place] [address] Pharmacist Internal Medicine 10/19/24 [facility] 07/03/22 08/16/24 Ja VNA 08/10/24 documented as of this encounter
--- OUTSIDE RECORDS SUMMARY | 2024-12-06 02:30 | XMS_ITS | Encounter Summary ---
Author Organization [employer] Address 75 [facility] 7t [place] [address] Care Team Providers Care Global Creative Chairman Name Role Phone Amanda Watkins MD Primary Care Provide r Hiro Ram PRESSURE SUPERVISOR Unavailable Unavailable Raad Arias PharmD Unavailable [phone] Encounter Details Date Type Department Care Team ([facility] st Contact Info) Description 09/06/2024 Orders Only [facility] MED & PEDS 505 [place], [place] [phone] Waldemar Vaughn MD 505 [place] [address] Social History Tobacco Use Types Packs/Day Years [...] Info) Description 12/20/2024 3:30 PM EDT Telemedicine [facility] [address] [place] [address] Raad Arias, PharmD [address] [place] [address] documented as of this encounter Visit Diagnoses Not on filedocumented in this encounter Additional Health Concerns Assessment Noted Time PHQ-9 Depression Total Score: 0 09/01/19 25 1:18 PM EST documented as of this encounter Care Teams Global Creative Chairman Relationship Specialty Start Date End Date Amanda Watkins MD [address] [place] [address] PCP - General Family Medicine 04/07/19 Hiro Ram FNP [address] [place] [address] Nurse Practitioner Family Medicine 07/06/23 Raad Arias, PharmD [address] [place] [address] Pharmacist Internal Medicine 10/19/24 [place] [facility] 08/10/24 documented as of this encounter
--- OUTSIDE RECORDS SUMMARY | 2024-12-06 02:30 | XMS_ITS | Encounter Summary ---
Author Organization [employer] Address 75 [facility] 7t [place] [address] Care Team Providers Care Rehab Department Manager Name Role Phone Amanda Watkins MD Primary Care Provide r Hiro Ram FRONT LOADER RESIDENTIAL DRIVER Unavailable Unavailable Raad Arias PharmD Unavailable [phone] Reason for Visit * Reason Comments Med Refill Encounter Details Date Type Department Care Team (Late st Contact Info) Description 02/11/2024 Refill [facility] 230 [place] [address] Amanda Watkins MD 230 [place] [address] Type 2 diabetes mellitus with other specified complication, unspecified whether termite exterminator helper insulin use ([facility]) Social History Tobacco Use Types Packs/Day [...] Info) Description 12/20/2024 3:30 PM EDT Telemedicine [facility] MED[facility]INE [address] [address] Raad Arias, TheaD [address] [place] [address] documented as of this encounter Visit Diagnoses Diagnosis Type 2 diabetes mellitus with other specified complication, unspecified whether assisted insulin use ([facility]) documented in this encounter Additional Health Concerns Assessment Noted Time PHQ-9 Depression Total Score: 10 024 3:23 PM EDT documented as of this encounter Care Teams Rehab Department Manager Relationship Specialty Start Date End Date Amanda Watkins MD [address] [place] [address] PCP - General Family Medicine 04/07/19 Hiro Ram FNP [address] [place] [address] Nurse Practitioner Family Medicine 07/06/23 Raad Arias, PharmD [address] [place] [address] Pharmacist Internal Medicine 10/19/24 [facility] 08/16/24 Ja ARCE 08/10/24 documented as of this encounter
--- OUTSIDE RECORDS SUMMARY | 2024-12-06 02:30 | XMS_ITS | Encounter Summary ---
Author Organization [employer] Address 75 [facility] 7t [place] [address] Care Team Providers Care Consulting Services Project Manager Name Role Phone Amanda Watkins MD Primary Care Provide r Hiro Ram RESOURCE CONSERVATION MANAGER Unavailable Unavailable Raad Arias PharmD Unavailable [phone] Reason for Visit * Reason Comments Med Refill Encounter Details Date Type Department Care Team (Late st Contact Info) Description 10/16/2024 Refill [facility] CHC MED & PEDS [address] [place] [address] Amanda Watkins MD 230 [place] [address] Chronic bilateral low back pain with bilateral [...] EDT Telemedicine [facility] MEDICINE 230 [place] [address] Raad Arias, TheaD 230 [place] [address] documented as of this encounter Visit Diagnoses Diagnosis Chronic bilateral low back pain with bilateral sciatica documented in this encounter Additional Health Concerns Assessment Noted Time PHQ-9 Depression Total Score: 0 09/01/19 25 1:18 PM EST documented as of this encounter Care Teams Consulting Services Project Manager Relationship Specialty Start Date End Date Amanda Watkins MD [address] [place] [address] PCP - General Family Medicine 04/07/19 Hiro Ram FNP [address] [place] [address] Nurse Practitioner Family Medicine 07/06/23 Raad Arias, PharmD [address] [place] [address] Pharmacist Internal Medicine 10/19/24 Ja ARCE 08/10/24 documented as of this encounter
--- OUTSIDE RECORDS SUMMARY | 2024-12-06 02:30 | XMS_ITS | Encounter Summary ---
Author Organization [employer] Address 75 [facility] 7t [place] [address] Care Team Providers Care Fixing Carpenter Name Role Phone Amanda Watkins MD Primary Care Provide r Hiro Ram Unavailable Unavailable Raad Arias PharmD Unavailable [phone] Reason for Visit * Reason Comments Med Refill Encounter Details Date Type Department Care Team (Late st Contact Info) Description 09/27/[address] [facility] MEDICINE 230 [place] [address] Ann Kulkarni DO 230 [place] [address] Social History Tobacco Use Types Packs/Day Years [...] Info) Description 12/20/2024 3:[address] [facility] MEDICINE [address] [place] [address] Raad Arias, PharmD 230 [place] [address] documented as of this encounter Visit Diagnoses Not on filedocumented in this encounter Additional Health Concerns Assessment Noted Time PHQ-9 Depression Total Score: 0 09/01/19 1:18 PM EST documented as of this encounter Care Teams Fixing Carpenter Relationship Specialty Start Date End Date Amanda Watkins MD [address] [place] [address] PCP - General Family Medicine 04/07/19 Hrio Ram FNP [address] [place] [address] Nurse Practitioner Family Medicine 07/06/23 Raad Arias, PharmD [address] [place] [address] Pharmacist Internal Medicine 10/19/24 [facility] documented as of this encounter
--- OUTSIDE RECORDS SUMMARY | 2024-12-06 02:30 | XMS_ITS | Encounter Summary ---
Author Organization [employer] Address 75 [facility] 7t [place] [address] Care Team Providers Care Clear Coat Sprayer Name Role Phone Amanda Watkins MD Primary Care Provide r Hiro Ram WIRE WORKER Unavailable Unavailable Raad Arias PharmD Unavailable [phone] Reason for Visit * Reason Comments Med Refill Encounter Details Date Type Department Care Team (Late st Contact Info) Description 07/05/2024 Refill [facility] MEDICINE 230 [place] [address] Amanda Watkins MD 230 [place] [address] Social History Tobacco Use Types Packs/Day Years [...] Info) Description 12/20/2024 3:30 PM EDT Telemedicine [facility] MED[facility] [address] [place] [address] Raad Arias, PharmD [address] [place] [address] documented as of this encounter Visit Diagnoses Not on filedocumented in this encounter Additional Health Concerns Assessment Noted Time PHQ-9 Depression Total Score: 10 024 3:23 PM EDT documented as of this encounter Care Teams Clear Coat Sprayer Relationship Specialty Start Date End Date Amanda Watkins MD [address] [place] [address] PCP - General Family Medicine 04/07/19 Hiro Ram FNP [address] [place] [address] Nurse Practitioner Family Medicine 07/06/23 Raad Arias, TheaD [address] [place] [address] Pharmacist Internal Medicine 10/19/24 [facility] 07/03/22 08/16/24 Ja ARCE 08/10/24 documented as of this encounter
--- OUTSIDE RECORDS SUMMARY | 2024-12-06 02:30 | XMS_ITS | Encounter Summary ---
Author Organization [employer] Address 75 [facility] 7t [place] [address] Care Team Providers Care Haz Tech Name Role Phone Amanda Watkins MD Primary Care Provide r Hiro Ram Unavailable Unavailable Raad Arias PharmD Unavailable [phone] Reason for Visit * Reason Onset Date Comments Hospital Follow-up 04/04/2024 Encounter Details Date Type Department Care Team (Late st Contact Info) Description 04/04/2024 Telephone [facility] MEDICINE 230 [place] [address] Amanda Watkins MD 230 [place], [place] [phone] Hospital Follow-up Social History Tobacco Use Types [...] from pt requesting a HDF appt. [facility] Date of admission: 03/18 Discharge date: 03/21 Diagnosed: Cellulitis documented in this encounter Plan of Treatment Upcoming Encounters Date Type Department Care Team (Late st Contact Info) Description 12/20/2024 3:30 PM EDT Telemedicine [facility] MEDICINE 230 [place] [address] Raad Arias, PharmD 230 [place] [address] documented as of this encounter Visit Diagnoses Not on filedocumented in this encounter Additional Health Concerns Assessment Noted Time PHQ-9 Depression Total Score: 10 024 3:23 PM EDT documented as of this encounter Care Teams Haz Tech Relationship Specialty Start Date End Date Amanda Watkins MD 230 [place] [address] PCP - General Family Medicine 04/07/19 Hiro Ram FNP 230 [place] [address] Nurse Practitioner Family Medicine 07/06/23 Raad Arias, TheaD 230 [place] [address] Pharmacist Internal Medicine 10/19/24 [facility] 07/03/22 08/16/24 Ja [facility] 08/10/24 documented as of this encounter
--- OUTSIDE RECORDS SUMMARY | 2024-12-06 02:30 | XMS_ITS | Clinical Summary ---
Author Organization [employer] Address [address] [facility] [address] [place] [address] Care Team Providers Care Gas Engine Operator Generators Name Role Phone Amanda Watkins MD Primary Care Provide r Hiro Ram PRECIPITATOR OPERATOR Unavailable Unavailable Raad Arias PharmD Unavailable [phone] Allergies Active Allergy Reactions Criticality Noted Date [...] MG EC tabletIndications :Atrial fibrillation, unspecified type ([facility]) Take 1 tablet (81 mg) by mouth at bedtime. 90 tablet 3 024 Active Oyster Shell Calcium 500 MG tablet TAKE 1 TABLET BY MOUTH TWICE DAILY IN THE MORNING AND IN THE EVENING 180 tablet 1 024 Active FREESTYLE LITE test stripIndications: Type 2 diabetes mellitus with hyperglycemia, with long-term current use of insulin ([facility]) Use to test blood sugar 3 times daily 100 each 12 024 2024 Active Lancets miscIndications:T ype 2 diabetes mellitus with hyperglycemia, with long-term current use of insulin ([facility]) Use to test blood sugar 3 times daily 100 each 2 024 Active Blood Glucose Monitoring Suppl (FreeStyle [place] Lite) w/Device kitIndications:Ty pe 2 diabetes mellitus with hyperglycemia, with long-term current use of insulin ([facility]) Use to test blood sugar 3 times daily 1 kit Active Continuous Glucose Sensor (FreeStyle Mickey 2 Sensor) miscIndications:T ype 2 diabetes mellitus with other specified complication, with long-term current use of insulin ([facility]) Apply 1 sensor every 14 days 2 each 2 024 Active Nyamyc 129585 UNIT/GM powder Apply 1 Application. topically 2 times daily. 024 Active Continuous Glucose Auto Repair Technician (FreeStyle Mickey 2 [place]) deviceIndications :Type 2 diabetes mellitus with other specified complication, with long-term current use of insulin ([facility]) Scan sensor every 8 hours 1 each 025 Active calamine-zinc oxide 8-8 % lotion APPLY TO THE AFFECTED AREA(S) TOPICALLY TWICE DAILY NEEDED FOR ITCHING 025 Active loratadine (Claritin) 10 MG tablet Take 1 tablet by mouth Once per day. 025 Active Lokelma 10 g packet DISSOLVE 1 PACKET DIRECTED AND TAKE BY MOUTH EVERY WEDNESDAY, WEDNESDAY, AND WEDNESDAY Active acetaminophen (Acetaminophen 8 Hour) 650 MG ER tablet Take 650 mg by mouth every 8 (eight) hours if needed for mild pain. Do not crush, chew, or split. Active Ketotifen Fumarate 0.035 % solutionIndicatio ns:Allergic conjunctivitis of both eyes Administer 1 drop into affected eye(s) every 12 (twelve) hours if needed (if needed). 10 mL 1 025 Active levothyroxine (Synthroid, Levoxyl) 75 MCG tabletIndications :Acquired hypothyroidism Take 1 tablet (75 mcg) by mouth in the morning. 30 tablet 2 025 Active omeprazole (PriLOSEC) [address] capsuleIndication [...] 90 tablet 025 Active Eliquis 5 MG tabletIndications :Atrial fibrillation, unspecified type (CMS/HCC) TAKE 1 TABLET BY MOUTH TWICE DAILY IN THE MORNING AND AT BEDTIME 60 tablet 2 025 Active atorvastatin (Lipitor) 80 MG tablet TAKE 1 TABLET BY MOUTH EVERY EVENING 90 tablet 1 025 Active insulin degludec (Tresiba FlexTouch) 200 UNIT/ML injectionIndicati ons:Type 2 diabetes mellitus with hyperglycemia, with long-term current use of insulin ([facility]) Inject 64 units under the skin daily 18 mL 5 025 Active Dulaglutide (Trulicity) 1.5 MG/0.5ML solution auto-injectorIndi cations:Type 2 diabetes mellitus with hyperglycemia, with long-term current use of insulin ([facility]) Inject 1.5 mg under the skin 1 (one) time per week. 2 mL 5 025 Active pen needle 32G x 4 mm miscIndications:T ype 2 diabetes mellitus with hyperglycemia, with long-term current use of insulin (CMS/HCC) Use daily with insulin 100 each 3 025 2025 Active amLODIPine (Norvasc) 5 MG tablet TAKE 1 TABLET BY MOUTH EVERY MORNING 30 tablet 3 Active torsemide (Demadex) 20 MG tablet TAKE 1 TABLET BY MOUTH EVERY MORNING 30 tablet 3 Active traZODone (Desyrel) 150 MG tabletIndications :Recurrent major depressive episodes, mild (CMS/HCC) Take 1 tablet (150 mg) by mouth at bedtime. 90 tablet 2 Active oxyCODONE-acetami nophen (Percocet) 5-325 MG tabletIndications :Chronic bilateral low back pain with bilateral sciatica Take 1 tablet by mouth every 6 (six) hours if needed for severe pain. 28 tablet Active traZODone (Desyrel) 150 MG tabletIndications :Recurrent major depressive episodes, mild (CMS/HCC) Take 1 tablet (150 mg) by mouth at bedtime. 90 tablet 2 024 2024 Discontinued(R eorder (will not trigger notification to Pharmacy)) amLODIPine (Norvasc) 5 MG tablet Take 1 tablet (5 mg) by mouth Once per day. 30 tablet 3 025 2024 Discontinued torsemide (Demadex) 20 MG tablet Take 1 tablet (20 mg) by mouth Once per day. 30 tablet 3 025 2024 Discontinued oxyCODONE-acetami nophen (Percocet) 5-325 MG tabletIndications :Chronic bilateral low back pain with bilateral sciatica Take 1 tablet by mouth every 6 (six) hours if needed for severe pain for up to 7 days. 28 tablet 025 2024 Discontinued oxyCODONE-acetami nophen (Percocet) 5-325 MG tabletIndications :Chronic bilateral low back pain with bilateral sciatica TAKE 1 TABLET BY MOUTH EVERY 6 HOURS NEEDED FOR SEVERE PAIN 28 tablet 025 2024 Discontinued(R eorder (will not trigger notification to Pharmacy)) Active Problems Problem Noted Date Diagnosed Date [...] Assessment & Plan (09/14/2024 6:46 PM EST): Wrapper Layer referral done today I advised not to [...] medications every day I advised low-sodium diet Wrapper Layer referral done today I advised to monitor [...] retiring, patient will be transferred to new [facility] psychiatric provider. Patient is aware that appointments will be via televisit. Any issues or concerns contact [facility]. All her questions were answered and [...] advise low-sodium diet I advised weight reduction Wrapper Layer referral done Assessment & Plan (12/06/2023 2:12 [...] and excersise -patient will be refer to sand worker - Continue current medications, I can not [...] Encounters Date Type Department Care Team Description 11/28/2024 Refill [facility] [address] [place] [address] Amanda Watkins MD Chronic bilateral low back pain with bilateral sciatica 11/25/2024 Refill [facility] [address] [place] [address] Amanda Watkins MD Recurrent major depressive episodes, mild (CMS/HCC) 11/24/2024 Telephone [facility] [address] [place] [address] Amanda Watkins MD Chart Prep 11/10/2024 Refill [facility] [address] [place], [place] [phone] Amanda Watkins MD Chronic bilateral low back pain with bilateral sciatica 11/06/2024 Telephone [facility] [address] [place] [address] Amanda Watkins MD Durable Medical Equipment 11/01/2024 2:00 PM EDT Telemedicine [facility] [address] [place] [address] Raad Arias, PharmD Type 2 diabetes mellitus with hyperglycemia, with long-term current use of insulin ([facility]) (Primary Dx) 11/01/2024 Travel 11/01/2024 Refill [facility] [address] [place] [address] Amanda Watkins MD 10/27/2024 Refill [facility] [address] [place] [address] Amanda Watkins MD Atrial fibrillation, unspecified type ([facility]) 10/26/2024 Refill [facility] [address] [place] [address] Amanda Watkins MD Chronic bilateral low back pain with bilateral sciatica (Primary Dx) 10/19/2024 Refill [facility] [address] [place] [address] Amanda Watkins MD 10/18/2024 Travel 10/16/2024 Refill [facility] [address] [place] [address] Amanda Watkins MD Chronic bilateral low back pain with bilateral sciatica 10/11/2024 Telephone [facility] [address] [place] [address] Amanda Watkins MD Home Care Delivered (Adult size brief, large disposable underpad, wipes icon softpack) 10/10/2024 Refill [facility] [address] [place] [address] Amanda Watkins MD 10/10/2024 Refill [facility] [address] [place] [address] Amanda Watkins MD 10/04/2024 Refill [facility] [address] [place] [address] Ann Kulkarni DO 10/04/2024 Refill [facility] [address] [place] [address] Amanda Watkins MD Epigastric pain; Type 2 diabetes mellitus with other specified complication, with long-term current use of insulin ([facility]) 09/27/2024 Refill [facility] [address] [place] [address] Glo KulkarniferDO 09/26/2024 Refill [facility] [address] [place], [place] [phone] Amanda Watkins MD Chronic bilateral low back pain with bilateral sciatica 09/24/2024 Refill [facility] [address] [place] [address] Amanda Watkins MD Type 2 diabetes mellitus with other specified complication ([facility]) 09/22/2024 Telephone [facility] [address] [place] [address] Amanda Watkins MD Medication Question 09/14/2024 11:00 AM EST Telemedicine [facility] [address] [place] [phone] Vilma Gilbert PharmD Type 2 diabetes mellitus with hyperglycemia, with long-term current use of insulin ([facility]) (Primary Dx); Primary hypertension; Stage 3b chronic kidney disease ([facility]) 09/07/2024 Telephone [facility] [address] [place] [phone] Kayley Alanis, PHILLIP POWERHOUSE ATTENDANT Renewal cancelled at check in time 09/07/2024 Telephone [facility] [address] [place] [phone] nutrition appt request from Last 3 Months Immunizations Name Administration [...] 3:30 PM EDT Telemedicine [facility] [address] [place], [place] [phone] Raad Arias, PharmD [address] [place] [address] Health Maintenance Due Date Last Done Comments [...] Additional history exists Depression Screening 09/01/2025 09/01/2024, 01/24/20 25 Lipid Panel 09/01/2025 09/01/2024, 08/04/2021 Tobacco [...] Procedure Name Priority Date/Time Associated Diagnosis Comments LIPID PANEL, STANDARD Routine 09/01/2024 2:09 PM EST POCT GLYCATED HEMOGLOBIN, TOTAL Routine 09/01/2024 1:24 PM EST Type 2 diabetes mellitus with hyperglycemia, with long-term current use of insulin ([facility]) ALBUMIN, RANDOM URINE W/CREATININE Routine 08/04/2021 10:15 AM EST from Last 3 Months or Most Recently Relevant to Health Maintenance Results * (ABNORMAL) Lipid Panel, Standard (09/01/2024 2:09 PM EST) Triglycerides 241(H) <150 mg/dL [facility] Comment:Desirable Triglyceri de: less than 150 mg/dLBorderline High Triglyceride 150-199 mg/dLHigh Triglyceride: 200-499 mg/dLVery High Triglyceride: greater than or equal to 5OO mg/dL Cholesterol 107 <200 mg/dL [facility] Comment:Desirable Cholestero l: less than 200 mg/dLBorderline High Cholesterol: 200-239 mg/dLHigh Cholesterol: greater than 239 mg/dL LDL Cholesterol Calculated 34 <100 mg/dL [facility] Comment:Desirable LDL: less than 100 mg/dLNear Optimal/Above Optimal LDL: 110- 129 mg/dLBorderline High LDL: 130-159 mg/dLHigh LDL: 160-189 mg/dLVery High LDL: greater than or equal to 190 mg/dL HDL Cholesterol 25(L) >40 mg/dL [facility] Comment:Desirable HDL: great er than 40 mg/dL Note: This HDL assay may give artificially low results in patients with liver disease. 09/01/2024 2:09 PM EST 09/01/2024 4:09 PM EST Amanda Myers MD LAB BLOOD ORDERABLES Final Result Performing Organization Address City/State/[facility] Co de Phone Number [facility] [address] [place] [phone] * (ABNORMAL) POCT HGB A1C (09/01/2024 [...] DO LAB URINE ORDERABLES Final R esult [facility] [address] [place] [address], from Last 3 Months or Most Recently Relevant to Health Maintenance Insurance [facility] [employer] (O D-SNP) [place]OP[place] [id number] Care Teams Gas Engine Operator Generators Relationship Specialty Start Date End Date Amanda Watkins MD [address] [place] [address] PCP - General Family Medicine 04/07/19 Hiro Ram FNP [address] [place] [address] Nurse Practitioner Family Medicine 07/06/23 Raad Arias, TheaD [address] [place] [phone] Pharmacist Internal Medicine 10/19/24 Ja A 08/10/24
--- OUTSIDE RECORDS SUMMARY | 2024-12-06 02:30 | XMS_ITS | Encounter Summary ---
Author Organization [employer] Address [address] [facility] [address] [place] [address] Care Team Providers Care Spring Production Supervisor Name Role Phone Amanda Watkins MD Primary Care Provide r Hiro Ram Unavailable Unavailable Raad Arias PharmD Unavailable [phone] Reason for Visit * Reason Onset Date Comments Durable Medical Equipment 11/06/2024 Encounter Details Date Type Department Care Team (Late st Contact Info) Description 11/06/[address] [facility] [address] [place] [address] Amanda Watkisn MD [address] [place] [address] Durable Medical Equipment Social History Tobacco Use [...] Info) Description 12/20/2024 3:30 PM EDT Telemedicine [facility] [address] [place] [address] Raad Arias, PharmD [address] [place] [address] documented as of this encounter Visit Diagnoses Not on filedocumented in this encounter Additional Health Concerns Assessment Noted Time PHQ-9 Depression Total Score: 0 09/01/19 25 1:18 PM EST documented as of this encounter Care Teams Spring Production Supervisor Relationship Specialty Start Date End Date Amanda Watkins MD [address] [place] [address] PCP - General Family Medicine 04/07/19 Hiro Ram FNP [address] [place] [address] Nurse Practitioner Family Medicine 07/06/23 Raad Arias, PharmD [address] [place] [address] Pharmacist Internal Medicine 10/19/24 Ja [facility] 08/10/24 documented as of this encounter
[2024-12-06] MEDS: Midazolam HCl 2 MG/2 ML VIAL IVPUSH ×2 (02:39→03:04)
--- NOTE | 2024-12-06 02:42 | PC.NURSE ---
pt moved into room 12 and placed onto shelter monitor. #20g iv placed in R hand. 2mg versed administered per oct. pt now resting on stretcher in room, still crying out for help, within view of nurses station. plan of care ongoing.
[2024-12-06] MEDS: Morphine Sulfate 2 MG/ML CARTRIDGE IVPUSH (03:20)
[2024-12-06] MEDS: Piperacillin Sodium/Tazobactam 4.5 GM in 0.9 % Sodium Chloride 100 ML IV (03:31)
[2024-12-06 03:43] LABS: C Reactive Protein < 0.10 mg/dL (< or = 0.50)
[2024-12-06] MEDS: Magnesium Sulfate/H2O 2 GM/50 ML PIGGYBACK IV ×2 (03:46→22:29)
--- NOTE | 2024-12-06 03:48 | PC.NURSE ---
Addendum entered by Alie Mathis 12/06/24 04:03: run of torsades shown on data quality consultant Original Note: verbal order from MD alfaro to give mag infusion over 20 mins
--- NOTE | 2024-12-06 03:50 | ECG_ITS ---
Test Reason : arrythmia Blood Pressure : */* mmHG Vent. Rate : 66 BPM Atrial Rate : 66 BPM P-R Int : 188 ms QRS Dur : 92 ms QT Int : 442 ms P-R-T Axes : 55 -29 22 degrees QTcB Int : 463 ms Normal sinus rhythm Low voltage QRS Cannot rule out Anterior infarct (cited on or before 02-Aug-2024) Abnormal ECG When compared with ECG of 05-Sep-2024 18:44, Nonspecific T wave abnormality, improved in Anterolateral leads QT has shortened Referred By: Galo Ma Electronically Signed By: Asif Zhao
[2024-12-06 03:54] LABS: Lactic Acid 1.4 mmol/L (0.5-2.0)
--- NOTE | 2024-12-06 03:56 | MHC.EDTECH ---
this tech assumed care of pt @0020
[2024-12-06 03:59] LABS: Magnesium 1.7 mg/dL (1.6-2.6)
--- NOTE | 2024-12-06 04:03 | PC.NURSE ---
pt continues to be restless at this time. moved into room 9 and sitter at bedside.
[2024-12-06 04:06] LABS: Free T4 (Free Thyroxine) 0.69 ng/dL (0.71-1.85)
[2024-12-06 04:11] LABS: Erythrocyte Sedimentation Rate 17 MM/HR (0-20)
[2024-12-06] MEDS: Morphine Sulfate 4 MG/ML CARTRIDGE IVPUSH ×2 (04:31→23:57)
--- NOTE | 2024-12-06 06:10 | PC.NURSE ---
pt now asleep comfortably on stretcher, respirations even and unlabored, on media monitor and end tidal monitoring. waiting for care team eval for possible aamir psych. plan of care continues.
--- NOTE | 2024-12-06 08:57 | PC.NURSE ---
assumed care of patient at 0700, patient is asleep, resp even and unlabored, patient is on 2lNC. patient VSS at this time.
[2024-12-06 11:07] LABS: Venous Blood Gas Refer to POC result
--- NOTE | 2024-12-06 11:08 | PHA.MEDREC ---
Addendum entered by Abe Clarke RPh 12/06/24 12:14: Reviewed by [facility]. Spoke with son (Anatoliy), daughter (Alie, ), and FACULTY I ON CALL MEDICAL ASSISTANT (Aby, ) to confirm medications. All parties confirmed Trulicty 1.5mg on Fridays. Alie and FACULTY I ON CALL MEDICAL ASSISTANT confirmed the pt is no longer on Lantus, and is on Tresiba 64 units daily. Original Note: Pharmacy Consult ? Medication Reconciliation Pharmacy has completed the medication reconciliation. Tried to speak with patient, however she was asleep and would not wake to name called. Called son Oksana through health technical writer service ( Olivia) and he instructed me to call patient daughter Alie [phone] to confirm med list. Called daughter through health technical writer service ( Olivia) and she states she just woke up and will call us back. Utilized claims to confirm med list. Will update with any change is daughter calls back.
[2024-12-06 11:09] LABS: VBG Base Excess 14.8 mmol/L; VBG HCO3 40 mmol/L (22-26); VBG pCO2 59 mmHg; VBG pH 7.44 (7.32-7.43); VBG pO2 193 mmHg
--- NOTE | 2024-12-06 11:32 | P.HPHOSP_ITS ---
History of Present Illness Date of Service: 12/06/24 Attending physician on admission: Dank Benton Chief Complaint: Anxiety and agitation Pt is a 74-year-old female with a PMH significant for?paroxysmal AFib on Eliquis s/p cardioversion 06/2023, CAD, HFpEF, HTN, CKD 3, insulin-dependent type 2 diabetes, asthma, hypothyroidism, depression, and anxiety who presents to the ED with?increased anxiety and agitation. Pt is currently somnolent arousable the falls immediately back asleep and unable to provide any meaningful HPI which is instead obtained from chart review and family. Pt lives with family who note pt has been having uncontrolled panic attacks the past 2-3 days. Pt has been sleeping some during the days, but has been up all night the past 3 nights. Has been increasingly anxious and agitated, crying out/screaming, scratching uncontrollably at her legs, and pulling out her hair. Also keeps threatening to throw herself on the floor and has been noted to repeatedly and aggressively bang her right foot on the floor while laying on the bed. Pt currently only on hydroxyzine which daughter reports does not work. Daughter called EMS bring pt to the hospital to see if pt could get Ativan or some other anxiolytic. While in the ED pt was noted to have a short episode of asymptomatic and nonsustained V-tach/torsades, as pictured below. Pt was given magnesium 2 g IV without repeat recurrence of arrhythmia. In the ED pt's vitals stable and largely WNL. Labs were grossly unremarkable and around baseline for pt. Stable microcytic anemia of 8.0/27.4 with MCV 71.9. No significant electrolyte abnormalities. Creatinine 1.49, at baseline. Lactic acid WNL at 1.4. Hepatic function WNL. TSH 31.90 with T4 mildly decreased at 0.69. UA negative for UTI. VBG showing pH 7.44 with pCO2 59 and bicarb 40, similar to prior. EKG demonstrated normal sinus rhythm QTc 463 and without evidence of ST elevations or depressions. Pt was treated in the ED with lorazepam 2 mg p.o., olanzapine 10 mg p.o., ziprasidone 10 mg IM, gabapentin, quetiapine, oxycodone, Versed 2 mg IV x2, morphine, Zosyn, and Mag sulfate IV. Pt is admitted to the hospital for treatment and further evaluation of multiple issues, including uncontrollable restlessness and agitation, wide complex tachycardia observed on monitoring in the ED, and cellulitis. [facility] Medical History CKD (chronic kidney disease) CKD stage 3 due to type 2 diabetes mellitus Leg abrasion Abuse of non-prescription analgesics Type 2 diabetes mellitus with unspecified complications Other and unspecified hyperlipidemia Essential hypertension Atherosclerotic cardiovascular disease Urgency incontinence Osteoporosis Arthritis Asthma Hypertension Fibromyalgia Diabetes mellitus Surgical History History of hernia repair Social History Household Members: None Household Members Other:: friend Housing: Apartment Do you presently have visiting nurse or other home services: Yes Unable to assess alcohol history related to: Refusing to respond Alcohol intake: never 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 Patient Tobacco Use Status: Never used Tobacco Smoked in Last 30 Days: No Use of substances other than those prescribed or required for medical reasons: No Advance Directives: Yes Advance Directives on File: Yes Advance Directives Date on File: 04/07/24 Do you have a plan to hurt others: No Plan service: No Sexual orientation: Straight/Heterosexual Meds Allergies Allergy/AdvReac Type Severity Reaction Status Date / Time codeine [CODEINE] Allergy Intermediate HALLUCINATI Verified 12/05/24 23:07 ONS Home Medications ?Medication ?Instructions ?Recorded ?Confirmed ?Last Taken ?Type atorvastatin 80 mg tablet 80 mg PO BEDTIME 04/07/21 12/06/24 10/05/24 History duloxetine 20 mg capsule,delayed 20 mg PO DAILY 03/18/24 12/06/24 04/05/24 History release omeprazole 40 mg capsule,delayed 40 mg PO DAILY@0630 03/18/24 12/06/24 10/06/24 History release aspirin 81 mg tablet,delayed 81 mg PO BEDTIME 06/11/24 12/06/24 10/06/24 History release gabapentin 100 mg capsule 100 mg PO TID 06/11/24 12/06/24 10/06/24 History oxycodone-acetaminophen 5 mg-325 1 tab PO Q6H PRN pain 06/11/24 12/06/24 10/06/24 History mg tablet ketotifen fumarate 0.025 % (0.035 1 drp ophthalmic (eye) Q12H PRN 10/06/24 12/06/24 Unknown History %) eye drops (Eye Itch Relief) Eye Irritation levothyroxine 75 mcg tablet 75 mcg PO DAILY@0600 10/06/24 12/06/24 10/06/24 History trazodone 150 mg tablet 150 mg PO BEDTIME 10/06/24 12/06/24 10/05/24 History calcium carbonate (Oyster Shell 500 mg PO BID 12/06/24 12/06/24 Unknown History Calcium 500) dulaglutide 1.5 mg/0.5 mL 1.5 mg subcut FR 12/06/24 12/06/24 Unknown History subcutaneous pen injector (Trulicity) hydroxyzine HCl 25 mg tablet 25 mg PO Q8H PRN anxiety 12/06/24 12/06/24 Unknown History insulin degludec 200 unit/mL (3 64 unit subcut DAILY 12/06/24 12/06/24 Unknown History mL) subcutaneous pen (Tresiba FlexTouch U-200 insulin) loratadine 10 mg tablet 10 mg PO DAILY 12/06/24 12/06/24 Unknown History melatonin 3 mg tablet 3 mg PO BEDTIME 12/06/24 12/06/24 Unknown History Physical Exam 2 Vital Signs and Narrative: Vital Signs: Last Vital Signs Temp 97.6 F 12/06/24 11:08 Pulse 53 12/06/24 11:08 Resp 13 12/06/24 11:08 BP 148/48 H 12/06/24 11:08 Pulse Ox 97 12/06/24 11:08 O2 Del Method Nasal Cannula wit h Capnography 12/06/24 11:08 O2 Flow Rate 2 12/06/24 08:56 BMI result Body Mass Index 43.0 General: Somnolent but arousable, answers appropriately to a few queries, though immediately falls back asleep. In no acute distress Resp: CTA bilaterally CVS: S1, S2, RRR GI: +BS, NT, no distention Skin: Warm, dry Neuro: Cranial nerves II-XII grossly intact bilaterally. Motor grossly intact bilaterally Extremities: Left leg mid calf erythema, warmth, and 1+ pitting edema. As pictured below Results Labs 12/06/24 00:14 12/06/24 00:14 Labs: Laboratory Results - last 24 hr 12/06/24 12/06/24 12/06/24 00:14 01:57 03:30 MCV 71.9 L MCH 21.0 L MCHC 29.2 L RDW 16.2 H Plt Count 215 MPV 9.9 Immature Gran % (Auto) 0.4 Neut % (Auto) 54.0 Lymph % (Auto) 30.8 [place] % (Auto) 10.0 Eos % (Auto) 4.0 Baso % (Auto) 0.8 Lymph # (Auto) 1.5 [place] # (Auto) 0.5 Eos # (Auto) 0.2 Baso # (Auto) 0.0 Abs Immat Gran (auto) 0.02 Absolute Neuts (auto) 2.6 Absolute Nucleated RBC 0.000 Nucleated RBC % (auto) 0.0 ESR 17 VBG pH VBG pCO2 VBG pO2 VBG HCO3 VBG O2 Saturation VBG Base Excess Anion Gap 13 Estim Creat Clear Calc 34.9 Estimated GFR 34 Random Glucose 182 H Lactic Acid 1.4 Calcium 8.8 D Magnesium 1.7 Total Bilirubin 0.3 Direct Bilirubin 0.1 AST 17 ALT 7 Alkaline Phosphatase 54 C-Reactive Protein < 0.10 Total Protein 6.2 L Albumin 3.2 L TSH 31.90 H Free T4 0.69 L Urine Color Yellow Urine Appearance Clear Urine pH 7.5 Ur Specific [place] 1.010 Urine Protein Negative Urine Glucose (UA) Negative Urine Ketones Negative Urine Blood Negative Urine Nitrite Negative Ur Leukocyte Esterase Negative Urine Opiates Screen Not Detected Ur Buprenorphine Scrn Not Detected Ur Oxycodone Screen Positive H Urine Methadone Screen Not Detected Urine Fentanyl Screen Not Detected Ur Barbiturates Screen Not Detected Ur Phencyclidine Scrn Not Detected Ur Amphetamines Screen Not Detected U Benzodiazepines Scrn Not Detected Urine Cocaine Screen Not Detected U Marijuana (THC) Screen Not Detected Ethyl Alcohol < 10 12/06/24 11:04 MCV MCH MCHC RDW Plt Count MPV Immature Gran % (Auto) Neut % (Auto) Lymph % (Auto) [place] % (Auto) Eos % (Auto) Baso % (Auto) Lymph # (Auto) [place] # (Auto) Eos # (Auto) Baso # (Auto) Abs Immat Gran (auto) Absolute Neuts (auto) Absolute Nucleated RBC Nucleated RBC % (auto) ESR VBG pH 7.44 H VBG pCO2 59 VBG pO2 193 VBG HCO3 40 H VBG O2 Saturation 100.0 VBG Base Excess 14.8 Anion Gap Estim Creat Clear Calc Estimated GFR Random Glucose Lactic Acid Calcium Magnesium Total Bilirubin Direct Bilirubin AST ALT Alkaline Phosphatase C-Reactive Protein Total Protein Albumin TSH Free T4 Urine Color Urine Appearance Urine pH Ur Specific [place] Urine Protein Urine Glucose (UA) Urine Ketones Urine Blood Urine Nitrite Ur Leukocyte Esterase Urine Opiates Screen Ur Buprenorphine Scrn Ur Oxycodone Screen Urine Methadone Screen Urine Fentanyl Screen Ur Barbiturates Screen Ur Phencyclidine Scrn Ur Amphetamines Screen U Benzodiazepines Scrn Urine Cocaine Screen U Marijuana (THC) Screen Ethyl Alcohol Assessment and Plan (1) Cellulitis of left leg: Status: Acute (2) Wide-complex tachycardia: Status: Acute (3) Agitation: Status: Acute Plan Pt is a 74-year-old female with a PMH significant for?paroxysmal AFib on Eliquis s/p cardioversion 06/2023, CAD, HFpEF, HTN, CKD 3, insulin-dependent type 2 diabetes, asthma, hypothyroidism, depression, and anxiety who presents to the ED with?increased anxiety and agitation. Pt is admitted to the hospital for treatment and further evaluation of multiple issues, including uncontrollable restlessness and agitation, wide complex tachycardia observed on monitoring in the ED, and cellulitis. Wide complex tachycardia Pt with short, 2-3 second episode of asymptomatic, unsustained wide-complex tachycardia which on monitor in ED Concerning for v-tach/torsades Pt given mag sulfate 2g IV Hold QT-prolonging meds Monitor on telemetry Consider cardiology consult if repeat arrhythmias Cellulitis of left lower extremity Left lower extremity with erythema, warmth, and swelling Likely secondary to itching and scratching due to anxiety No sepsis as pt does not meet any SIRS criteria Pt started on broad-spectrum antibiotics in the ED Will treat with Agitation/restlessness Family report pt with uncontrolled anxiety and agitation x2-3 days Pt has been yelling out/screaming, pulling hair, scratching at legs, banging foot on ground, threatening to throw herself on the floor Home hydroxyzine has provided little relief Pt given multiple doses of po and IV anxiolytics in the ED Currently sedated and somnolent Psychiatry consult for med management Insulin-dependent type 2 diabetes with hyperglycemia Blood glucose difficult to control at home with the past few days POC 388 at time of presentation Beta hydroxybutyrate WNL, no DKA Will place on sliding scale insulin, continue Lantus Diabetic diet Hypothyroidism TSH elevated at 31.90, free T4 slightly low at 0.69 Previously TSH elevated at 31.45, free T4 WNL at 0.88 on 08/02/2025 Will increase levothyroxine to 88mcg Follow up outpatient for close monitoring of TSH and T4 in 3-4 weeks HFpEF Does not appear to be in acute exacerbation Continue torsemide Paroxysmal AFib Continue Eliquis HTN BP has been soft, hold amlodipine and metoprolol CAD/HLD Continue aspirin, statin Peripheral neuropathy Continue gabapentin Full Code, verified with [facility] and family Attending:?Dr. Benton DVT Prophylaxis: On Eliquis Pt will require a hospitalization of at least two nights for treatment of?multiple issues including wide complex tachycardia, cellulitis of left lower extremity, and increased agitation/restlessness. Pt will require hospital level care for administration of IV antibiotics, and close monitoring of cardiac function and mental status. Quality Stroke Does the patient have a stroke diagnosis?: No VTE Prior VTE?: No VTE Risk Level:: Medical - moderate - high VTE Device Contraindication: Treatment Not Indicated VTE Drug Contraindication: N/A - Med Ordered
--- NOTE | 2024-12-06 11:35 | PC.NURSE ---
family requested update, went into room for update patient family not there
--- NOTE | 2024-12-06 12:12 | PC.NURSE ---
patient remains somnolent, patient family at bedside, given update for plan for admission into hospital. patient awakens to verbal stimuli, does not participate in conversation, appears tired. patient left leg noted to be red, skin dry and intact. family states she usually sleeps all day and is awake at night very anxious, sometimes does not sleep for x2days.
--- NOTE | 2024-12-06 14:30 | PC.NURSE ---
patient remains sleeping, patient opens eyes to verbal/noxious stimuli. patient VSS at this time, remains on 2lNC. patient waiting for inpatient bed placement.
[2024-12-06 16:30] LABS: Glucose, Whole Blood 86 mg/dL (60-115)
[2024-12-06] MEDS: Doxycycline Hyclate 100 MG in 0.9 % Sodium Chloride 250 ML 166.67 MG IV (16:56)
[2024-12-06] MEDS: Acetaminophen 325 MG TABLET 650 MG PO (17:43)
--- NOTE | 2024-12-06 17:46 | PC.NURSE ---
patient woke up, daughter at bedside, patient stated her right hand hurt, patient iv was wrapped with kerlex, kerlex removed. patient felt relief, requested tylenol for pain. patient medicated per OCT. patient given dinner tray
[2024-12-06 20:47] LABS: Glucose, Whole Blood 133 mg/dL (60-115)
[2024-12-06] MEDS: Aspirin Enteric Coated 81 MG TABLET.DR PO (21:04)
[2024-12-06] MEDS: Atorvastatin Calcium 80 MG TABLET PO (21:04)
[2024-12-06] MEDS: Apixaban 5 MG TABLET PO (21:05)
[2024-12-06] MEDS: Melatonin 3 MG TABLET 6 MG PO (21:05)
[2024-12-06] MEDS: Gabapentin 100 MG CAPSULE PO (21:05)
[2024-12-06] MEDS: Calcium Oyster Shell Elemental 500 MG TABLET PO (21:05)
[2024-12-06] MEDS: hydrOXYzine HCL 25 MG TABLET PO (21:05)
[2024-12-06] MEDS: 0.9 % Sodium Chloride Flush 3 ML SYRINGE IVFLUSH (23:58)
[2024-12-07 03:01] VITALS: BP 124/66; PULSE 68; RESP 18; TEMP 36.7; O2SAT 95
[2024-12-07] MEDS: Doxycycline Hyclate 100 MG in 0.9 % Sodium Chloride 250 ML 166.67 MG IV ×2 (06:20→16:26)
[2024-12-07] MEDS: Omeprazole 40 MG CAPSULE.DR PO (06:26)
[2024-12-07] MEDS: Levothyroxine Sodium 75 MCG TABLET PO (06:26)
[2024-12-07] MEDS: oxyCODONE HCl Immed Release 5 MG TABLET PO ×2 (06:26→22:56)
[2024-12-07 07:04] LABS: Glucose, Whole Blood 175 mg/dL (60-115)
[2024-12-07 07:13] VITALS: BP 118/85; PULSE 72; RESP 20; TEMP 36.6; O2SAT 92
[2024-12-07] MEDS: Insulin Lispro 100 UNIT/ML 3 ML VIAL SUBCUT ×4 (08:10→21:25)
[2024-12-07] MEDS: Calcium Oyster Shell Elemental 500 MG TABLET PO ×2 (08:11→21:25)
[2024-12-07] MEDS: amLODIPine Besylate 5 MG TABLET PO (08:11)
[2024-12-07] MEDS: Torsemide 20 MG TABLET PO (08:11)
[2024-12-07] MEDS: Gabapentin 100 MG CAPSULE PO (08:11)
[2024-12-07] MEDS: DULoxetine HCl 20 MG CAPSULE.DR PO (08:11)
[2024-12-07] MEDS: Apixaban 5 MG TABLET PO ×2 (08:11→21:25)
[2024-12-07] MEDS: Loratadine 10 MG TABLET PO (08:11)
[2024-12-07] MEDS: 0.9 % Sodium Chloride Flush 3 ML SYRINGE IVFLUSH ×3 (08:16→21:27)
[2024-12-07 08:18] LABS: Hematocrit 30.2 % (37.0-47.0); Hemoglobin 8.5 g/dl (12.0-16.0); Mean Corpuscular HGB Conc 28.1 g/dl (31.0-35.0); Mean Corpuscular Volume 74.6 fL (80.0-98.0); Mean Platelet Volume 11.5 fL (9.4-12.3); Platelet Count 238 X10*3/uL (160-400); Red Blood Count 4.05 X10*6/uL (4.20-5.50); Red Cell Distribution Width 16.3 % (11.0-16.0); White Blood Count 9.4 X10*3/uL (4.8-10.8)
[2024-12-07 08:34] LABS: Blood Urea Nitrogen 28 mg/dL (9-16); Creatinine Clr Calc Pharmacy 41.7; Estimated Glomerular Filt Rate 41; Glucose Random 188 mg/dL (60-115)
[2024-12-07 08:41] LABS: Anion Gap 14 (12-20); Carbon Dioxide 31 mmol/L (22-29); Chloride 99 mmol/L (96-108); Potassium 5.3 mmol/L (3.3-5.1); Sodium 139 mmol/L (135-145)
[2024-12-07 10:56] VITALS: BP 154/60; PULSE 70; RESP 20; TEMP 36.7; O2SAT 94
[2024-12-07 10:59] LABS: Glucose, Whole Blood 217 mg/dL (60-115)
[2024-12-07] MEDS: Acetaminophen 325 MG TABLET 975 MG PO ×3 (11:32→22:56)
--- NOTE | 2024-12-07 12:51 | HO.PM.IMPN ---
Subjective Subjective Date of Service: 12/07/24 Interval History: Seen and evaluated this morning feels pain all over body mainly right hand erythema of leg improving no other events Review of Systems Review of Systems: Yes all other systems are reviewed and are negative Physical Exam Vital Signs: Vital Signs: Last Vital Signs Temp 98.0 F 12/07/24 10:56 Pulse 70 12/07/24 10:56 Resp 20 12/07/24 10:56 BP 154/60 H 12/07/24 10:56 Pulse Ox 94 12/07/24 10:56 O2 Del Method Room Air 12/07/24 10:56 O2 Flow Rate 3 12/06/24 20:24 BMI result Body Mass Index 45.5 Const: Other: Constitutional : interactive, anxious Cardiovascular : no JVP, no lower extremity edema Respiratory : bilateral chest movement, not in resp distress Gastrointestinal: soft, lax, Non tender Skin : Warm, Dry, left lower extremity erythema, pain and warmth decreasing, no drainage noted Neurological : Alert & oriented , No focal deficit Objective Data Active Medications Acetaminophen (Acetaminophen 325 Mg Tablet) 975 mg PO QSHIFT [facility] Last Admin: 12/07/24 11:32 Dose: 975 mg Documented By: CAROL Amlodipine Besylate (Amlodipine Besylate 5 Mg Tablet) 5 mg PO DAILY [facility]; Protocol Last Admin: 12/07/24 08:11 Dose: 5 mg Documented By: TONE Apixaban (Apixaban 5 Mg Tablet) 5 mg PO BID [facility] Last Admin: 12/07/24 08:11 Dose: 5 mg Documented By: TONE Aspirin (Aspirin Enteric Coated 81 Mg Tablet.) 81 mg PO BEDTIME [facility] Last Admin: 12/06/24 21:04 Dose: 81 mg Documented By: NICOLE Atorvastatin Calcium (Atorvastatin Calcium 80 Mg Tablet) 80 mg PO BEDTIME [facility] Last Admin: 12/06/24 21:04 Dose: 80 mg Documented By: NICOLE Calcium Carbonate (Calcium Carbonate 750 Mg Tab.Chew) 750 mg PO Q4H PRN PRN Reason: Heartburn Calcium Carbonate (Calcium Oyster Shell Elemental 500 Mg Tablet) 500 mg PO BID [facility] Last Admin: 12/07/24 08:11 Dose: 500 mg Documented By: TONE Dextrose (Dextrose 50 % 25 Gm/50 Ml Syringe) 25 gm IVPUSH Q15M PRN; Protocol PRN Reason: per Hypoglycemia Standing Ord. Duloxetine HCl (Duloxetine Hcl 20 Mg Capsule.) 20 mg PO DAILY [facility] Last Admin: 12/07/24 08:11 Dose: 20 mg Documented By: TONE Gabapentin (Gabapentin 100 Mg Capsule) 200 mg PO TID [facility] Glucose (Glucose Gel 15 Gm Gel..Gram.) 15 gm PO Q15M PRN; Protocol PRN Reason: per Hypoglycemia Standing Ord. Hydroxyzine HCl (Hydroxyzine Hcl 25 Mg Tablet) 25 mg PO Q8H PRN PRN Reason: anxiety Last Admin: 12/06/24 21:05 Dose: 25 mg Documented By: NICOLE Doxycycline Hyclate 100 mg/ (Sodium Chloride) 250 mls @ 166.67 mls/hr IV Q12H [facility] Last Infusion: 12/07/24 07:57 Dose: Infused Documented By: TONE Insulin Human Lispro (Insulin Lispro 100 Unit/Ml 3 Ml Vial) 0 unit SUBCUT QIDACHS [facility]; Protocol Last Admin: 12/07/24 11:33 Dose: 4 unit Documented By: CAROL Ketotifen Fumarate (Ketotifen Fumarate 0.025% Oph 5 Ml Drpb) 1 drop EYE-BOTH Q12H PRN PRN Reason: Eye Irritation Levothyroxine Sodium (Levothyroxine Sodium 75 Mcg Tablet) 75 mcg PO DAILY@0600 [facility] Last Admin: 12/07/24 06:26 Dose: 75 mcg Documented By: NICOLE Loratadine (Loratadine 10 Mg Tablet) 10 mg PO DAILY [facility] Last Admin: 12/07/24 08:11 Dose: 10 mg Documented By: TONE Lorazepam (Lorazepam 0.5 Mg Tablet) 0.25 mg PO Q6H PRN PRN Reason: anxiety/restlessness Magnesium Hydroxide (Milk Of Magnesia 30 Ml Oral.Susp) 30 ml PO DAILY PRN PRN Reason: Constipation Melatonin (Melatonin 3 Mg Tablet) 6 mg PO BEDTIME PRN PRN Reason: Insomnia Last Admin: 12/06/24 21:05 Dose: 6 mg Documented By: NICOLE Omeprazole (Omeprazole 40 Mg Capsule.) 40 mg PO DAILY@0630 [facility] Last Admin: 12/07/24 06:26 Dose: 40 mg Documented By: NICOLE Oxycodone HCl (Oxycodone Hcl Immed Release 5 Mg Tablet) 5 mg PO Q6H PRN PRN Reason: Pain, Severe (Pain Scale 7-10) Last Admin: 12/07/24 06:26 Dose: 5 mg Documented By: NICOLE Sodium Chloride (0.9 % Sodium Chloride Flush 3 Ml Syringe) 3 ml IVFLUSH QSHIFT [facility] Last Admin: 12/07/24 08:16 Dose: 3 ml Documented By: TONE Torsemide (Torsemide 20 Mg Tablet) 20 mg PO DAILY [facility]; Protocol Last Admin: 12/07/24 08:11 Dose: 20 mg Documented By: BROShannan Labs 12/07/24 07:36 12/07/24 07:36 Labs: Laboratory Results - last 24 hr 12/06/24 12/06/24 12/07/24 16:27 20:37 06:53 MCV MCH MCHC RDW Plt Count MPV Absolute Nucleated RBC Nucleated RBC % (auto) Anion Gap Estim Creat Clear Calc Estimated GFR POC Glucose 86 133 H 175 H Random Glucose Calcium 12/07/24 12/07/24 07:36 10:55 MCV 74.6 L MCH 21.0 L MCHC 28.1 L RDW 16.3 H Plt Count 238 MPV 11.5 Absolute Nucleated RBC 0.000 Nucleated RBC % (auto) 0.0 Anion Gap 14 Estim Creat Clear Calc 41.7 Estimated GFR 41 POC Glucose 217 H Random Glucose 188 H Calcium 9.0 Microbiology Microbiology Results: Microbiology 12/06/24 03:30 Blood Culture - Preliminary Blood - Venous No growth after 24 hours. 12/06/24 03:30 Blood Culture - Preliminary Blood - Venous No growth after 24 hours. Assessment and Plan (1) Agitation: Status: Acute (2) Wide-complex tachycardia: Status: Acute (3) Cellulitis of left leg: Status: Acute (4) Anxiety: Status: Acute Plan Pt is a 74-year-old female with a PMH significant for?paroxysmal AFib on Eliquis s/p cardioversion 06/2023, CAD, HFpEF, HTN, CKD 3, insulin-dependent type 2 diabetes, asthma, hypothyroidism, depression, and anxiety who presents to the ED with?increased anxiety and agitation. Pt is admitted to the hospital for treatment and further evaluation of multiple issues, including uncontrollable restlessness and agitation, wide complex tachycardia observed on monitoring in the ED, and cellulitis. Cellulitis of left lower extremity improving ammonium lactate lotion as likely secondary to itching and scratching due to anxiety Continue Doxycycline for now Wide complex tachycardia short, 2-3 second episode of asymptomatic, unsustained wide-complex tachycardia Concerning for v-tach/torsades Pt given mag sulfate 2g IV Hold QT-prolonging meds Monitor on telemetry cardiology consult if repeat arrhythmias Agitation/restlessness Home hydroxyzine has provided little relief PRN Ativan Increase Gabapentin Psychiatry consult for med management Insulin-dependent type 2 diabetes with hyperglycemia better controlled Will place on sliding scale insulin, continue Lantus Diabetic diet Acute hyperkalemia K of 5.3 Lokelma given follow BMP Hypothyroidism TSH elevated at 31.90, free T4 slightly low at 0.69 Previously TSH elevated at 31.45, free T4 WNL at 0.88 on 08/02/2025 Will increase levothyroxine to 88mcg Follow up outpatient for close monitoring of TSH and T4 in 3-4 weeks HFpEF Does not appear to be in acute exacerbation Continue torsemide Paroxysmal AFib Continue Eliquis HTN BP has been soft, hold amlodipine and metoprolol CAD/HLD Continue aspirin, statin Peripheral neuropathy Continue gabapentin Full Code, verified with [facility]OL[facility] and family DVT Prophylaxis: On Eliquis Pt will require a hospitalization of overnight for treatment of?multiple issues including wide complex tachycardia, cellulitis of left lower extremity, and increased agitation/restlessness. Pt will require hospital level care for administration of IV antibiotics, and close monitoring of cardiac function and mental status pending specialist consult. Quality Stroke Does the patient have a stroke diagnosis?: No VTE Prior VTE?: No VTE Risk Level:: Medical - moderate - high VTE Device Contraindication: Treatment Not Indicated VTE Drug Contraindication: N/A - Med Ordered
--- NOTE | 2024-12-07 15:07 | MHC.CM.PN ---
CM attempted to meet with pt. today, she has been sleeping, after having a lot of agitation when she first came to hospital. CM attempted to call son and dtr, calls did not go through. CM will attempt to speak with pt. tomorrow.
[2024-12-07 16:00] VITALS: BP 147/66; PULSE 64; RESP 19; TEMP 36.6; O2SAT 94
[2024-12-07 16:21] LABS: Glucose, Whole Blood 151 mg/dL (60-115)
[2024-12-07] MEDS: Ammonium Lactate 12 % Lotion 226 GM BOTTLE 1 APPL TOPICAL ×2 (16:25→21:27)
[2024-12-07] MEDS: Gabapentin 100 MG CAPSULE 200 MG PO ×2 (16:25→21:25)
[2024-12-07 19:55] VITALS: BP 136/63; PULSE 62; RESP 19; TEMP 36.4; O2SAT 94
[2024-12-07 20:54] LABS: Glucose, Whole Blood 166 mg/dL (60-115)
[2024-12-07] MEDS: hydrOXYzine HCL 25 MG TABLET PO (21:24)
[2024-12-07] MEDS: Aspirin Enteric Coated 81 MG TABLET.DR PO (21:25)
[2024-12-07] MEDS: Melatonin 3 MG TABLET 6 MG PO (21:25)
[2024-12-07] MEDS: Atorvastatin Calcium 80 MG TABLET PO (21:25)
[2024-12-08] VITALS: BP 142/64; PULSE 63; RESP 18; TEMP 37.1; O2SAT 96
[2024-12-08 03:22] VITALS: BP 158/69; PULSE 66; RESP 18; TEMP 36.8; O2SAT 95
[2024-12-08] MEDS: Doxycycline Hyclate 100 MG in 0.9 % Sodium Chloride 250 ML 166.67 MG IV (04:33)
[2024-12-08] MEDS: hydrOXYzine HCL 25 MG TABLET PO (05:20)
[2024-12-08] MEDS: Levothyroxine Sodium 75 MCG TABLET PO (05:20)
[2024-12-08] MEDS: Omeprazole 40 MG CAPSULE.DR PO (05:21)
[2024-12-08 06:47] LABS: MANUAL DIFF FLAG NO
[2024-12-08 06:52] LABS: Basophils Absolute Auto 0.1 X10*3/uL (0.0-0.2); Basophils Percent Auto 0.8 % (0-2); Eosinophils Absolute Auto 0.3 X10*3/uL (0.0-0.4); Eosinophils Percent Auto 5.8 % (0-4); Hematocrit 28.1 % (37.0-47.0); Imm Gran Abs Auto 0.02 X10*3/uL (0.00-0.03); Imm Gran Pct Auto 0.3 % (0.0-0.4); Lymphocytes Absolute Auto 1.5 X10*3/uL (1.2-4.9); Lymphocytes Percent Auto 25.2 % (20-40); Mean Corpuscular HGB Conc 28.5 g/dl (31.0-35.0); Mean Corpuscular Hemoglobin 21.2 pg (27.0-33.0); Mean Corpuscular Volume 74.5 fL (80.0-98.0); Mean Platelet Volume 10.7 fL (9.4-12.3); Monocytes Absolute Auto 0.7 X10*3/uL (0.1-1.2); Neutrophils Absolute Auto 3.3 x10*3/uL (2.0-8.3); Neutrophils Percent Auto 55.9 % (45-73); Platelet Count 196 X10*3/uL (160-400); Red Blood Count 3.77 X10*6/uL (4.20-5.50); Red Cell Distribution Width 16.3 % (11.0-16.0); White Blood Count 5.9 X10*3/uL (4.8-10.8)
[2024-12-08 07:05] VITALS: BP 146/55; PULSE 62; RESP 20; TEMP 36.1; O2SAT 92
[2024-12-08 07:10] LABS: Anion Gap 12 (12-20); Blood Urea Nitrogen 31 mg/dL (9-16); Calcium 8.3 mg/dL (8.4-10.2); Carbon Dioxide 32 mmol/L (22-29); Chloride 99 mmol/L (96-108); Creatinine Clr Calc Pharmacy 41.1; Estimated Glomerular Filt Rate 40; Glucose Random 147 mg/dL (60-115); Potassium 4.5 mmol/L (3.3-5.1); Sodium 138 mmol/L (135-145)
[2024-12-08 07:16] LABS: Glucose, Whole Blood 138 mg/dL (60-115)
[2024-12-08] MEDS: Acetaminophen 325 MG TABLET 975 MG PO (08:20)
[2024-12-08] MEDS: Loratadine 10 MG TABLET PO (08:20)
[2024-12-08] MEDS: Calcium Oyster Shell Elemental 500 MG TABLET PO (08:20)
[2024-12-08] MEDS: Apixaban 5 MG TABLET PO (08:20)
[2024-12-08 08:21] VITALS: BP 146/55
[2024-12-08] MEDS: amLODIPine Besylate 5 MG TABLET PO (08:21)
[2024-12-08] MEDS: Gabapentin 100 MG CAPSULE 200 MG PO (08:21)
[2024-12-08] MEDS: Torsemide 20 MG TABLET PO (08:21)
[2024-12-08] MEDS: 0.9 % Sodium Chloride Flush 3 ML SYRINGE IVFLUSH (08:21)
[2024-12-08] MEDS: DULoxetine HCl 20 MG CAPSULE.DR PO (08:21)
[2024-12-08] MEDS: Ammonium Lactate 12 % Lotion 226 GM BOTTLE 1 APPL TOPICAL (08:23)
--- NOTE | 2024-12-08 10:43 | MHC.CM.PN ---
Addendum entered by Radha Weaver RN 12/08/24 10:58: booking id# [id number] Original Note: IMM 12/08/24 DELIVERED TO BEDSIDE, PER HOSPITALIST PT MEDICALLY CLEARED FOR DC, CM MET W/PT VIA FAMILY DEVELOPMENT SPECIALIST, PT REPORTS SHE IS LIVING W/DTR VENITA AT [address] [facility] IN [place], CM CONTACTED VENITA AT [phone] AND VENITA ALSO AGREEABLE TO DC AND WILL BE HOME WHEN PT ARRIVES. PT REPORTS SHE USES A W/C MOSTLY FOR MOBILITY AND ALSO HAS A ROLLATOR, PT HAS 2 IMPLEMENTATION PROJECT MANAGER'S HOWEVER UNSURE OF TOTAL HRS, DTR VENITA ADMINISTERS MEDS TO PT. PT'S GOAL IS HOME TODAY W/RESUMP OF IMPLEMENTATION PROJECT MANAGER HRS. PT MEDICALLY CLEARED FOR DC HOME W/RESUMP OF IMPLEMENTATION PROJECT MANAGER HRS, HUSSEIN FOR BLS TRANPORT AT 2:30PM
[2024-12-08 11:14] VITALS: BP 149/66; PULSE 73; RESP 18; TEMP 37.2; O2SAT 95
[2024-12-08] MEDS: oxyCODONE HCl Immed Release 5 MG TABLET PO (11:14)
[2024-12-08] MEDS: Insulin Lispro 100 UNIT/ML 3 ML VIAL SUBCUT (11:18)
[2024-12-08 11:26] LABS: Glucose, Whole Blood 182 mg/dL (60-115)
--- NOTE | 2024-12-08 12:25 | PM.DS ---
DS: Providers Provider Date of Service: 12/08/24 Date of admission: 12/06/24 11:25 Date of discharge: 12/08/24 Primary care physician: Unknown Physician Consults: 12/06/24 02:08 ED CARE Team Crisis Consult Routine Comment: Reason for consultation: anxiety 12/06/24 11:58 Consult to Psychiatry Routine Consulting Provider: [facility] – [place] Psych Covering Reason for consultation: Uncontrolled anxiety and agitation, only on hydroxyzine DS: Diagnosis Discharge Diagnosis (1) Agitation: Status: Acute (2) Wide-complex tachycardia: Status: Acute (3) Cellulitis of left leg: Status: Acute (4) Anxiety: Status: Acute (5) Hypothyroidism: Status: Acute DS: Summary Hospital Course Hospital Course: Admission note HPI Pt is a 74-year-old female with a PMH significant for?paroxysmal AFib on Eliquis s/p cardioversion 06/2023, CAD, HFpEF, HTN, CKD 3, insulin-dependent type 2 diabetes, asthma, hypothyroidism, depression, and anxiety who presents to the ED with?increased anxiety and agitation. Pt is currently somnolent arousable the falls immediately back asleep and unable to provide any meaningful HPI which is instead obtained from chart review and family. Pt lives with family who note pt has been having uncontrolled panic attacks the past 2-3 days. Pt has been sleeping some during the days, but has been up all night the past 3 nights. Has been increasingly anxious and agitated, crying out/screaming, scratching uncontrollably at her legs, and pulling out her hair. Also keeps threatening to throw herself on the floor and has been noted to repeatedly and aggressively bang her right foot on the floor while laying on the bed. Pt currently only on hydroxyzine which daughter reports does not work. Daughter called EMS bring pt to the hospital to see if pt could get Ativan or some other anxiolytic. While in the ED pt was noted to have a short episode of asymptomatic and nonsustained V-tach/torsades, as pictured below. Pt was given magnesium 2 g IV without repeat recurrence of arrhythmia. In the ED pt's vitals stable and largely WNL. Labs were grossly unremarkable and around baseline for pt. Stable microcytic anemia of 8.0/27.4 with MCV 71.9. No significant electrolyte abnormalities. Creatinine 1.49, at baseline. Lactic acid WNL at 1.4. Hepatic function WNL. TSH 31.90 with T4 mildly decreased at 0.69. UA negative for UTI. VBG showing pH 7.44 with pCO2 59 and bicarb 40, similar to prior. EKG demonstrated normal sinus rhythm QTc 463 and without evidence of ST elevations or depressions. Pt was treated in the ED with lorazepam 2 mg p.o., olanzapine 10 mg p.o., ziprasidone 10 mg IM, gabapentin, quetiapine, oxycodone, Versed 2 mg IV x2, morphine, Zosyn, and Mag sulfate IV. Pt is admitted to the hospital for treatment and further evaluation of multiple issues, including uncontrollable restlessness and agitation, wide complex tachycardia observed on monitoring in the ED, and cellulitis. Hospital course # Cellulitis of left lower extremity. Treated with IV Doxycycline and ammonium lactate lotion for dry skin as infection likely secondary to itching and scratching due to anxiety. To be discharged on 1 more week of Doxycycline PO. # Reported Wide complex tachycardia which was asymptomatic. looking at Telemerty it looks more of artifact rather than actual arrythmia. no recurrence reported while in hospital. # Agitation/restlessness. controlled with Home hydroxyzine , Gabapentin as Psychiatry consultrecommended outpatient follow up and to avoid Benzos. # Insulin-dependent type 2 diabetes with hyperglycemia. better controlled on sliding scale insulin and Lantus. Diabetic diet # Acute hyperkalemia resolved with Lokelma. # Hypothyroidism. TSH elevated at 31.90, free T4 slightly low at 0.69. Previously TSH elevated at 31.45, free T4 WNL at 0.88 on 08/02/2025. we increased levothyroxine to 88mcg. To Follow up outpatient for close monitoring of TSH and T4 in 3-4 weeks Discharge plan Use Doxycycline twice a day for 1 week Ammonium lactate lotion twice a day on lower extremities follow with PCP as outpatient for anxiety management Follow up outpatient for close monitoring of TSH and T4 in 3-4 weeks Time Attestation Discharge Coordination Time (in mins): 38 Quality: Safe Use of Opioids Does Pt have an Active Cancer Diagnosis on the Problem List?: No Quality: Stroke Does the patient have a stroke diagnosis?: No Physical Exam Vital Signs: Vital Signs: Last Vital Signs Temp 98.9 F 12/08/24 11:14 Pulse 73 12/08/24 11:14 Resp 18 12/08/24 11:14 BP 149/66 H 12/08/24 11:14 Pulse Ox 95 12/08/24 11:14 O2 Del Method Room Air 12/08/24 11:14 O2 Flow Rate 3 12/06/24 20:24 BMI result Body Mass Index 45.5 Const: Other: Constitutional : interactive, less anxious Cardiovascular : no JVP, no lower extremity edema Respiratory : bilateral chest movement, not in resp distress Gastrointestinal: soft, lax, Non tender Skin : Warm, Dry, resolving left lower extremity erythema with no pain and warmth, no drainage noted Neurological : Alert & oriented , No focal deficit DS: Data Data Completed and Pending Completed studies during hospitalization [Text1]: Procedures Transfusion of Nonautologous Red Blood Cells into Peripheral Vein, Percutaneous Approach (08/02/24) Labs on day of discharge: Laboratory Results - last 24 hr 12/07/24 12/07/24 12/08/24 16:08 20:48 06:24 WBC 5.9 RBC 3.77 L Hgb 8.0 L Hct 28.1 L MCV 74.5 L MCH 21.2 L MCHC 28.5 L RDW 16.3 H Plt Count 196 MPV 10.7 Immature Gran % (Auto) 0.3 Neut % (Auto) 55.9 Lymph % (Auto) 25.2 [place] % (Auto) 12.0 H Eos % (Auto) 5.8 H Baso % (Auto) 0.8 Lymph # (Auto) 1.5 [place] # (Auto) 0.7 Eos # (Auto) 0.3 Baso # (Auto) 0.1 Abs Immat Gran (auto) 0.02 Absolute Neuts (auto) 3.3 Absolute Nucleated RBC 0.000 Nucleated RBC % (auto) 0.0 Sodium 138 Potassium 4.5 Chloride 99 Carbon Dioxide 32 H Anion Gap 12 BUN 31 H Creatinine 1.30 Estim Creat Clear Calc 41.1 Estimated GFR 40 POC Glucose 151 H 166 H Random Glucose 147 H Calcium 8.3 L D 12/08/24 12/08/24 07:11 11:16 WBC RBC Hgb Hct MCV MCH MCHC RDW Plt Count MPV Immature Gran % (Auto) Neut % (Auto) Lymph % (Auto) [place] % (Auto) Eos % (Auto) Baso % (Auto) Lymph # (Auto) [place] # (Auto) Eos # (Auto) Baso # (Auto) Abs Immat Gran (auto) Absolute Neuts (auto) Absolute Nucleated RBC Nucleated RBC % (auto) Sodium Potassium Chloride Carbon Dioxide Anion Gap BUN Creatinine Estim Creat Clear Calc Estimated GFR POC Glucose 138 H 182 H Random Glucose Calcium Preliminary micro results at discharge 12/06/24 03:30 Blood Culture - Preliminary Blood - Venous No growth after 48 hours. 12/06/24 03:30 Blood Culture - Preliminary Blood - Venous No growth after 48 hours. Discharge Plan Discharge Anticipated Discharge Date/Time: 12/08/24 12:12 Patient Disposition: Home Health Service Discharge Diagnosis: Cellulitis Referrals: Amanda Watkins MD [Physician] - 1 Week Discharge Medications: New ammonium lactate 12 % Lotion 1 appl topical BID Qty: 400 0RF Protocol: Apply to: Apply to: bilateral lower extremities Rx Instructions: lower extremities doxycycline monohydrate 100 mg capsule 100 mg PO BID Qty: 14 0RF levothyroxine 88 mcg capsule 88 mcg PO DAILY Qty: 90 0RF Continued atorvastatin 80 mg tablet 80 mg PO BEDTIME Eliquis 5 mg Tablet 5 mg PO BID Qty: 60 0RF omeprazole 40 mg capsule,delayed release(DR/EC) 40 mg PO DAILY@0630 duloxetine 20 mg capsule,delayed release(DR/EC) 20 mg PO DAILY melatonin 3 mg tablet 3 mg PO BEDTIME calcium carbonate [Oyster Shell Calcium 500] 500 mg calcium (1,250 mg) tablet 500 mg PO BID hydroxyzine HCl 25 mg tablet 25 mg PO Q8H PRN (Reason: anxiety) insulin degludec [Tresiba FlexTouch U-200] 200 unit/mL (3 mL) insulin pen 64 unit subcut DAILY loratadine 10 mg Tablet 10 mg PO DAILY Trulicity 1.5 mg/0.5 mL pen injector 1.5 mg subcut FR aspirin 81 mg tablet,delayed release (DR/EC) 81 mg PO BEDTIME oxycodone-acetaminophen 5-325 mg tablet 1 tab PO Q6H PRN (Reason: pain) gabapentin 100 mg capsule 100 mg PO TID torsemide 20 mg tablet 20 mg PO DAILY Qty: 30 0RF amlodipine 5 mg Tablet 5 mg PO DAILY Qty: 30 0RF Protocol: Hold for SBP< HOLD for SBP < : 90 ketotifen fumarate [Eye Itch Relief] 0.025 % (0.035 %) drops 1 drp ophthalmic (eye) Q12H PRN (Reason: Eye Irritation) trazodone 150 mg tablet 150 mg PO BEDTIME Discontinued levothyroxine 75 mcg tablet 75 mcg PO DAILY@0600 Discharge Orders: Discharge Order (Routine); Ordered 12/08/24 Ordered By: Ronaldo Sarah Diet: Advance to usual diet Activity on Discharge: As tolerated Stand Alone Forms: Patient Portal Discharge page Print Language: Icelandic Care Plan Goals: Use Doxycycline twice a day for 1 week Ammonium lactate lotion twice a day on lower extremities follow with PCP as outpatient for anxiety management Follow up outpatient for close monitoring of TSH and T4 in 3-4 weeks Health Concerns: Cellulitis Plan of Treatment: Doxycycline Assessment: as above
== END 2024-12-08 15:17 | disposition home health service (06) | DRG 603 ==
LOC: HO.ED 12-06 03:33 → HO.EDOVER 12-06 12:44 → HO.IMC 12-06 19:29
PROVIDERS: Emergency Medicine; Family Medicine; Admitting Provider Student in an Organized Health Care Education/Training Program; Emergency Provider Emergency Medicine Emergency Medical Services; PCP Internal Medicine; Visit Provider Student in an Organized Health Care Education/Training Program
DX: L03.116 Cellulitis of left lower limb (principal); I13.0 Hypertensive heart and chronic kidney disease with heart failure and stage 1 through stage 4 chronic kidney disease, or unspecified chronic kidney disease; I47.21 Torsades de pointes; I50.32 Chronic diastolic (congestive) heart failure; E11.22 Type 2 diabetes mellitus with diabetic chronic kidney disease; F41.9 Anxiety disorder, unspecified; N18.30 Chronic kidney disease, stage 3 unspecified; I48.0 Paroxysmal atrial fibrillation; E11.65 Type 2 diabetes mellitus with hyperglycemia; I25.10 Atherosclerotic heart disease of native coronary artery without angina pectoris; E78.5 Hyperlipidemia, unspecified; E87.5 Hyperkalemia; E03.9 Hypothyroidism, unspecified; E11.42 Type 2 diabetes mellitus with diabetic polyneuropathy; Z79.4 Long term (current) use of insulin; Z79.01 Long term (current) use of anticoagulants; Z79.82 Long term (current) use of aspirin; Z79.85 Long-term (current) use of injectable non-insulin antidiabetic drugs; Z79.890 Hormone replacement therapy; Z79.899 Other long term (current) drug therapy
CPT/HCPCS: 36415; 80048; 80076; 80307; 81003; 82803; 82947; 83605; 83735; 84439; 84443; 85025; 85027; 85652; 86140; 87040; 93005; 99285; J1271; J2250; J2270; J2543; J3475; J3486

== ENCOUNTER → 2024-12-06 03:50 | Outpatient (BNV) | payer OTHER, SELFPAY | PROVIDERS: Admitting Provider Student in an Organized Health Care Education/Training Program; Emergency Provider Emergency Medicine Emergency Medical Services; Visit Provider Internal Medicine Cardiovascular Disease | DX: R94.31 Abnormal electrocardiogram [ECG] [EKG] (principal); I49.9 Cardiac arrhythmia, unspecified | CPT/HCPCS: 93010 ==

== ENCOUNTER → 2024-12-06 11:25 | Outpatient (BNV) | payer OTHER, SELFPAY | PROVIDERS: Admitting Provider Student in an Organized Health Care Education/Training Program; Emergency Provider Emergency Medicine Emergency Medical Services; Visit Provider Student in an Organized Health Care Education/Training Program | DX: R45.1 Restlessness and agitation (principal); R00.0 Tachycardia, unspecified; L03.116 Cellulitis of left lower limb; F41.9 Anxiety disorder, unspecified; E03.9 Hypothyroidism, unspecified | CPT/HCPCS: 99232; 99239 ==

== ENCOUNTER 2024-12-09 02:35 | Emergency (ER) | payer OTHER, SELFPAY ==
--- NOTE | ~2024-12-09 | XR_ITS ---
CLINICAL HISTORY: joint effusion 3 view right wrist Comparison: None Findings: No fractures or dislocations. No significant arthritic change or erosions. No radiopaque foreign body. There is regional arterial calcification. IMPRESSION: 1. No acute findings This document has been electronically signed by: Garth Regan MD on 12/09/2024 05:58:45
[2024-12-09 02:39] VITALS: BP 142/60; BP 162/78; PULSE 75; PULSE 78; RESP 20; TEMP 37.1; O2SAT 96; O2SAT 97; BMI 33.3
[2024-12-09 05:21] LABS: MANUAL DIFF FLAG NO
[2024-12-09 05:23] LABS: Basophils Percent Auto 0.6 % (0-2); Eosinophils Absolute Auto 0.3 X10*3/uL (0.0-0.4); Eosinophils Percent Auto 3.7 % (0-4); Hematocrit 29.3 % (37.0-47.0); Hemoglobin 8.2 g/dl (12.0-16.0); Imm Gran Abs Auto 0.04 X10*3/uL (0.00-0.03); Imm Gran Pct Auto 0.6 % (0.0-0.4); Lymphocytes Absolute Auto 1.3 X10*3/uL (1.2-4.9); Lymphocytes Percent Auto 18.1 % (20-40); Mean Corpuscular Volume 74.9 fL (80.0-98.0); Mean Platelet Volume 10.3 fL (9.4-12.3); Monocytes Absolute Auto 0.7 X10*3/uL (0.1-1.2); Monocytes Percent Auto 10.4 % (2-11); Neutrophils Absolute Auto 4.7 x10*3/uL (2.0-8.3); Neutrophils Percent Auto 66.6 % (45-73); Platelet Count 222 X10*3/uL (160-400); Red Blood Count 3.91 X10*6/uL (4.20-5.50); Red Cell Distribution Width 16.4 % (11.0-16.0); White Blood Count 7.1 X10*3/uL (4.8-10.8)
[2024-12-09] MEDS: Morphine Sulfate 4 MG/ML CARTRIDGE IVPUSH (05:36)
[2024-12-09] MEDS: ondansetron HCL 4 MG/2 ML VIAL IVPUSH (05:36)
[2024-12-09 05:38] LABS: Lactic Acid 1.3 mmol/L (0.5-2.0)
[2024-12-09 05:45] LABS: Alanine Aminotransferase 6 U/L (0-31); Albumin Level 3.1 g/dL (3.5-5.0); Alkaline Phosphatase 60 U/L (39-117); Anion Gap 13 (12-20); Aspartate Amino Transferase 19 U/L (5-31); Bilirubin Total 0.3 mg/dL (0.0-1.0); Blood Urea Nitrogen 29 mg/dL (9-16); C Reactive Protein 5.49 mg/dL (< or = 0.50); Calcium 8.5 mg/dL (8.4-10.2); Carbon Dioxide 32 mmol/L (22-29); Chloride 99 mmol/L (96-108); Creatinine Clr Calc Pharmacy 33.7; Estimated Glomerular Filt Rate 31; Glucose Random 249 mg/dL (60-115); Sodium 139 mmol/L (135-145); Total Protein 6.5 g/dL (6.5-8.0); Uric Acid 7.9 mg/dL (2.4-5.7)
[2024-12-09 06:03] LABS: Erythrocyte Sedimentation Rate 45 MM/HR (0-20)
[2024-12-09 06:38] VITALS: BP 133/55; PULSE 72; RESP 16; TEMP 37.1; O2SAT 96
--- NOTE | 2024-12-09 06:46 | ED_ITS ---
HPI - Extremity Problem General Chief complaint: Extremity Problem Stated complaint: R arm pain & swelling was discharge from [facility] [place] today Time Seen by Provider: 12/09/24 04:38 Source: patient Mode of arrival: EMS Limitations: no limitations History of Present Illness ED Provider: HPI Narrative: Patient had IV line in the right hand yesterday went home complaining of increased pain in the right wrist joints since then no erythema no other joint involvement no fever no chills patient is diabetic and with history of CKD no history of gout Related Data Home Medications ?Medication ?Instructions ?Recorded ?Confirmed atorvastatin 80 mg tablet 80 mg PO BEDTIME 04/07/21 12/06/24 duloxetine 20 mg capsule,delayed 20 mg PO DAILY 03/18/24 12/06/24 release omeprazole 40 mg capsule,delayed 40 mg PO DAILY@0630 03/18/24 12/06/24 release aspirin 81 mg tablet,delayed 81 mg PO BEDTIME 06/11/24 12/06/24 release gabapentin 100 mg capsule 100 mg PO TID 06/11/24 12/06/24 oxycodone-acetaminophen 5 mg-325 1 tab PO Q6H PRN pain 06/11/24 12/06/24 mg tablet ketotifen fumarate 0.025 % (0.035 1 drp ophthalmic (eye) Q12H PRN 10/06/24 12/06/24 %) eye drops (Eye Itch Relief) Eye Irritation trazodone 150 mg tablet 150 mg PO BEDTIME 10/06/24 12/06/24 calcium carbonate (Oyster Shell 500 mg PO BID 12/06/24 12/06/24 Calcium 500) dulaglutide 1.5 mg/0.5 mL 1.5 mg subcut FR 12/06/24 12/06/24 subcutaneous pen injector (Trulicity) hydroxyzine HCl 25 mg tablet 25 mg PO Q8H PRN anxiety 12/06/24 12/06/24 insulin degludec 200 unit/mL (3 64 unit subcut DAILY 12/06/24 12/06/24 mL) subcutaneous pen (Tresiba FlexTouch U-200 insulin) loratadine 10 mg tablet 10 mg PO DAILY 12/06/24 12/06/24 melatonin 3 mg tablet 3 mg PO BEDTIME 12/06/24 12/06/24 Previous Rx's ?Medication ?Instructions ?Recorded apixaban 5 mg tablet (Eliquis) 5 mg PO BID #60 tabs 11/03/23 amlodipine 5 mg tablet 5 mg PO DAILY #30 tabs 06/20/24 torsemide 20 mg tablet 20 mg PO DAILY #30 tabs 06/20/24 ammonium lactate 12 % lotion 1 appl topical BID #400 grams 12/08/24 doxycycline monohydrate 100 mg 100 mg PO BID #14 caps 12/08/24 capsule levothyroxine 88 mcg capsule 88 mcg PO DAILY #90 caps 12/08/24 Allergies Allergy/AdvReac Type Severity Reaction Status Date / Time codeine [CODEINE] Allergy Intermediate HALLUCINATI Verified 12/09/24 02:48 ONS Review of Systems 2 Review of Systems: Yes all other systems are reviewed and are negative [facility] Past Medical History Medical History CKD (chronic kidney disease) CKD stage 3 due to type 2 diabetes mellitus Leg abrasion Abuse of non-prescription analgesics Type 2 diabetes mellitus with unspecified complications Other and unspecified hyperlipidemia Essential hypertension Atherosclerotic cardiovascular disease Urgency incontinence Osteoporosis Arthritis Asthma Hypertension Fibromyalgia Diabetes mellitus Surgical History History of hernia repair Social History Social History Household Members: Family Household Members Other:: friend Housing: Unknown / Unable to assess Do you presently have visiting nurse or other home services: Yes Unable to assess alcohol history related to: Refusing to respond Alcohol intake: never 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 Patient Tobacco Use Status: Never used Tobacco Smoked in Last 30 Days: No Use of substances other than those prescribed or required for medical reasons: No Advance Directives: Yes Advance Directives on File: Yes Advance Directives Date on File: 04/07/24 Do you have a plan to hurt others: No Plan service: No Sexual orientation: Straight/Heterosexual Physical Exam 2 Vital Signs: Vital Signs: Last Vital Signs Temp 98.8 F 12/09/24 06:38 Pulse 72 12/09/24 06:38 Resp 16 12/09/24 06:38 BP 133/55 L 12/09/24 06:38 Pulse Ox 96 12/09/24 06:38 O2 Del Method Nasal Cannula 12/09/24 06:38 O2 Flow Rate 2 12/09/24 06:38 BMI result Body Mass Index 33.3 Appearance: Alert. Oriented X3. No acute distress. Eyes: no pallor or icterus ENT: Pharynx normal Oral Mucosa moist tympanic membrane intact no erythema, Neck: Normal inspection. Neck supple. CVS: Normal heart rate and rhythm. Pulses normal. Respiratory: No respiratory distress. Equal air entry bilateral, no wheezing/rales/rhonchi Abd: soft, not tender Skin: Skin warm and dry. Normal skin color. Normal skin turgor. Extremities: No lower extremity edema, no calf tenderness right wrist soft tissue swelling local warmth no erythema Neuro: Oriented X 3. Medications Administered Discontinued Medications Generic Name Dose Route Start Last Admin Trade Name Freq PRN Reason Stop Dose Admin Morphine Sulfate 4 mg 12/09/24 05:06 12/09/24 05:36 Morphine Sulfate 4 Mg/Ml Cartridge IVPUSH 12/09/24 05:07 4 mg ONCE ONE Administration Protocol Ondansetron HCl 4 mg 12/09/24 05:06 12/09/24 05:36 Ondansetron Hcl 4 Mg/2 Ml Vial IVPUSH 12/09/24 05:07 4 mg ONCE ONE Administration Medical Decision Making Medical Decision Making [facility] Narrative: Patient with right wrist pain clinically gout increased CRP x-ray negative labs are stable will discharge patient home on prednisone advised to follow up with PCP wrist splint was applied Differential Diagnosis Differential Diagnoses: The differential diagnosis associated with the presentation includes Cellulitis/arthritis/gout Lab Data [facility] Lab Attestation statement: I reviewed the patient's lab results. 12/09/24 05:15 12/09/24 05:15 Labs: Lab Results 12/09/24 Range/Units 05:15 WBC 7.1 (4.8-10.8) X10*3/uL RBC 3.91 L (4.20-5.50) X10*6/uL Hgb 8.2 L (12.0-16.0) g/dl Hct 29.3 L (37.0-47.0) % MCV 74.9 L (80.0-98.0) fL MCH 21.0 L (27.0-33.0) pg MCHC 28.0 L (31.0-35.0) g/dl RDW 16.4 H (11.0-16.0) % Plt Count 222 (160-400) X10*3/uL MPV 10.3 (9.4-12.3) fL Immature Gran % (Auto) 0.6 H (0.0-0.4) % Neut % (Auto) 66.6 (45-73) % Lymph % (Auto) 18.1 L (20-40) % [place] % (Auto) 10.4 (2-11) % Eos % (Auto) 3.7 (0-4) % Baso % (Auto) 0.6 (0-2) % Lymph # (Auto) 1.3 (1.2-4.9) X10*3/uL [place] # (Auto) 0.7 (0.1-1.2) X10*3/uL Eos # (Auto) 0.3 (0.0-0.4) X10*3/uL Baso # (Auto) 0.0 (0.0-0.2) X10*3/uL Abs Immat Gran (auto) 0.04 H (0.00-0.03) X10*3/uL Absolute Neuts (auto) 4.7 (2.0-8.3) x10*3/uL Absolute Nucleated RBC 0.000 (0.0-0.012) X10*3/uL Nucleated RBC % (auto) 0.0 (0.0-0.2) /100WBC ESR 45 H (0-20) MM/HR Sodium 139 (135-145) mmol/L Potassium 5.0 (3.3-5.1) mmol/L Chloride 99 (96-108) mmol/L Carbon Dioxide 32 H (22-29) mmol/L Anion Gap 13 (12-20) BUN 29 H (9-16) mg/dL Creatinine 1.60 H (0.5-1.4) mg/dL Estim Creat Clear Calc 33.7 Estimated GFR 31 Random Glucose 249 H (60-115) mg/dL Lactic Acid 1.3 (0.5-2.0) mmol/L Uric Acid 7.9 H (2.4-5.7) mg/dL Calcium 8.5 (8.4-10.2) mg/dL Total Bilirubin 0.3 (0.0-1.0) mg/dL AST 19 (5-31) U/L ALT 6 (0-31) U/L Alkaline Phosphatase 60 (39-117) U/L C-Reactive Protein 5.49 H (< or = 0.50) mg/dL Total Protein 6.5 (6.5-8.0) g/dL Albumin 3.1 L (3.5-5.0) g/dL Independent Interpretation I performed an independent interpretation of an: Plain X-Ray Radiology Impression Discussion of test interpretation with radiology: I have reviewed the radiologist's reading. Discharge Plan Discharge Clinical Impression: Gout attack Patient Disposition: Home, Self-Care Instructions: Low Purine Diet (ED), Gout (ED) Additional Instructions: Likely have gout/pseudogout of the right wrist Wear splint for support Take prednisone as prescribed Your blood sugar will go high with prednisone your blood sugar is higher than 200 increase the dose of Tresiba to 70 units while taking the prednisone Drink plenty of fluids Follow up with your PCP Report to ER if worsening of the pain/redness/fever Prescriptions: No Action atorvastatin 80 mg tablet 80 mg PO BEDTIME Eliquis 5 mg Tablet 5 mg PO BID Qty: 60 0RF omeprazole 40 mg capsule,delayed release(DR/EC) 40 mg PO DAILY@0630 duloxetine 20 mg capsule,delayed release(DR/EC) 20 mg PO DAILY melatonin 3 mg tablet 3 mg PO BEDTIME calcium carbonate [Oyster Shell Calcium 500] 500 mg calcium (1,250 mg) tablet 500 mg PO BID hydroxyzine HCl 25 mg tablet 25 mg PO Q8H PRN (Reason: anxiety) insulin degludec [Tresiba FlexTouch U-200] 200 unit/mL (3 mL) insulin pen 64 unit subcut DAILY loratadine 10 mg Tablet 10 mg PO DAILY Trulicity 1.5 mg/0.5 mL pen injector 1.5 mg subcut FR ammonium lactate 12 % Lotion 1 appl topical BID Qty: 400 0RF Protocol: Apply to: Apply to: bilateral lower extremities Rx Instructions: lower extremities doxycycline monohydrate 100 mg capsule 100 mg PO BID Qty: 14 0RF levothyroxine 88 mcg capsule 88 mcg PO DAILY Qty: 90 0RF aspirin 81 mg tablet,delayed release (DR/EC) 81 mg PO BEDTIME oxycodone-acetaminophen 5-325 mg tablet 1 tab PO Q6H PRN (Reason: pain) gabapentin 100 mg capsule 100 mg PO TID torsemide 20 mg tablet 20 mg PO DAILY Qty: 30 0RF amlodipine 5 mg Tablet 5 mg PO DAILY Qty: 30 0RF Protocol: Hold for SBP< HOLD for SBP < : 90 ketotifen fumarate [Eye Itch Relief] 0.025 % (0.035 %) drops 1 drp ophthalmic (eye) Q12H PRN (Reason: Eye Irritation) trazodone 150 mg tablet 150 mg PO BEDTIME Print Language: Kosovan
[2024-12-09] MEDS: methylPREDNISolone Sod Succ 125 MG/2 ML VIAL IVPUSH (07:17)
[2024-12-09 08:00] VITALS: BP 136/59; PULSE 70; RESP 18; TEMP 36.6; O2SAT 99
--- NOTE | 2024-12-09 08:51 | MHC.EDTECH ---
Patient given breakfast
[2024-12-09 09:04] VITALS: BP 136/59; PULSE 70; RESP 18; TEMP 36.6; O2SAT 99
== END 2024-12-09 09:05 | disposition home or self-care (01) ==
PROVIDERS: Emergency Provider Internal Medicine; PCP Internal Medicine
DX: M10.9 Gout, unspecified (principal); M25.531 Pain in right wrist; E11.22 Type 2 diabetes mellitus with diabetic chronic kidney disease; I12.9 Hypertensive chronic kidney disease with stage 1 through stage 4 chronic kidney disease, or unspecified chronic kidney disease; N18.30 Chronic kidney disease, stage 3 unspecified; E78.5 Hyperlipidemia, unspecified; I48.92 Unspecified atrial flutter; J45.909 Unspecified asthma, uncomplicated; Z79.02 Long term (current) use of antithrombotics/antiplatelets; Z79.82 Long term (current) use of aspirin; Z79.899 Other long term (current) drug therapy; Z79.4 Long term (current) use of insulin; Z79.85 Long-term (current) use of injectable non-insulin antidiabetic drugs; Z79.01 Long term (current) use of anticoagulants
CPT/HCPCS: 36415; 73110; 80053; 83605; 84550; 85025; 85652; 86140; 87040; 96374; 96375; 99284; J2270; J2405; J2919

== ENCOUNTER → 2024-12-09 05:04 | Outpatient (BNV) | payer OTHER, SELFPAY | PROVIDERS: Emergency Provider Internal Medicine; Visit Provider Specialist | DX: M25.431 Effusion, right wrist (principal) | CPT/HCPCS: 73110 ==

== ENCOUNTER 2024-12-23 01:34 | Emergency (ER) | payer OTHER, SELFPAY ==
[2024-12-23 01:44] VITALS: BP 118/68; PULSE 65
[2024-12-23 01:48] VITALS: BP 108/30; PULSE 59; RESP 20; TEMP 36.7; O2SAT 96; BMI 40.0
--- NOTE | 2024-12-23 01:49 | ED_ITS ---
HPI - Psych General Chief Complaint: General Medical Stated Complaint: Anxiety & L knee pain Time Seen by Provider: 12/23/24 01:47 Source: patient Mode of arrival: EMS Limitations: no limitations History of Present Illness ED Provider: HPI Narrative: Patient with history of anxiety comes here for being anxious also complaining of chronic right knee pain no fall no injury patient has been here frequently for same in the past Related Data Home Medications ?Medication ?Instructions ?Recorded ?Confirmed atorvastatin 80 mg tablet 80 mg PO BEDTIME 04/07/21 12/06/24 duloxetine 20 mg capsule,delayed 20 mg PO DAILY 03/18/24 12/06/24 release omeprazole 40 mg capsule,delayed 40 mg PO DAILY@0630 03/18/24 12/06/24 release aspirin 81 mg tablet,delayed 81 mg PO BEDTIME 06/11/24 12/06/24 release gabapentin 100 mg capsule 100 mg PO TID 06/11/24 12/06/24 oxycodone-acetaminophen 5 mg-325 1 tab PO Q6H PRN pain 06/11/24 12/06/24 mg tablet ketotifen fumarate 0.025 % (0.035 1 drp ophthalmic (eye) Q12H PRN 10/06/24 12/06/24 %) eye drops (Eye Itch Relief) Eye Irritation trazodone 150 mg tablet 150 mg PO BEDTIME 10/06/24 12/06/24 calcium carbonate (Oyster Shell 500 mg PO BID 12/06/24 12/06/24 Calcium 500) dulaglutide 1.5 mg/0.5 mL 1.5 mg subcut FR 12/06/24 12/06/24 subcutaneous pen injector (Trulicity) hydroxyzine HCl 25 mg tablet 25 mg PO Q8H PRN anxiety 12/06/24 12/06/24 insulin degludec 200 unit/mL (3 64 unit subcut DAILY 12/06/24 12/06/24 mL) subcutaneous pen (Tresiba FlexTouch U-200 insulin) loratadine 10 mg tablet 10 mg PO DAILY 12/06/24 12/06/24 melatonin 3 mg tablet 3 mg PO BEDTIME 12/06/24 12/06/24 Previous Rx's ?Medication ?Instructions ?Recorded apixaban 5 mg tablet (Eliquis) 5 mg PO BID #60 tabs 11/03/23 amlodipine 5 mg tablet 5 mg PO DAILY #30 tabs 06/20/24 torsemide 20 mg tablet 20 mg PO DAILY #30 tabs 06/20/24 ammonium lactate 12 % lotion 1 appl topical BID #400 grams 12/08/24 doxycycline monohydrate 100 mg 100 mg PO BID #14 caps 12/08/24 capsule levothyroxine 88 mcg capsule 88 mcg PO DAILY #90 caps 12/08/24 Allergies Allergy/AdvReac Type Severity Reaction Status Date / Time codeine [CODEINE] Allergy Intermediate HALLUCINATI Verified 12/23/24 01:50 ONS Review of Systems Review of Systems: Yes all other systems are reviewed and are negative [facility] Past Medical History Medical History Anxiety Insomnia CKD (chronic kidney disease) CKD stage 3 due to type 2 diabetes mellitus Leg abrasion Abuse of non-prescription analgesics Type 2 diabetes mellitus with unspecified complications Other and unspecified hyperlipidemia Essential hypertension Atherosclerotic cardiovascular disease Urgency incontinence Osteoporosis Arthritis Asthma Hypertension Fibromyalgia Diabetes mellitus Surgical History History of hernia repair Social History Social History Household Members: Family Household Members Other:: friend Housing: Unknown / Unable to assess Do you presently have visiting nurse or other home services: Yes Unable to assess alcohol history related to: Refusing to respond Alcohol intake: never 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 Patient Tobacco Use Status: Never used Tobacco Smoked in Last 30 Days: No Use of substances other than those prescribed or required for medical reasons: No Advance Directives: Yes Advance Directives on File: Yes Advance Directives Date on File: 04/07/24 Do you have a plan to hurt others: No Plan service: No Sexual orientation: Straight/Heterosexual Physical Exam Vital Signs: Vital Signs: Last Vital Signs Temp 97.4 F 12/23/24 04:11 Pulse 55 12/23/24 06:02 Resp 20 12/23/24 06:02 BP 130/34 L 12/23/24 06:02 Pulse Ox 98 12/23/24 06:02 O2 Del Method Room Air 12/23/24 06:02 BMI result Body Mass Index 40.0 Appearance: Alert. Oriented X3. No acute distress. Anxious Eyes: No pallor or icterus ENT: Pharynx normal. Oral Mucosa moist Neck: Normal inspection. Neck supple. CVS: Normal heart rate and rhythm. Pulses normal. Respiratory: No respiratory distress. Equal air entry bilateral, no wheezing/rales/rhonchi Abdomen: Soft and nontender. Bowel sounds are present, no mass palpable, no CVA tenderness Skin: Skin warm and dry. Normal skin color. Normal skin turgor. Extremities: No lower extremity edema. No calf tenderness right knee diffuse tenderness no effusion good range of movement Neuro: Oriented X 3. No motor deficit. Medications Administered Discontinued Medications Generic Name Dose Route Start Last Admin Trade Name Freq PRN Reason Stop Dose Admin Acetaminophen 650 mg 12/23/24 02:58 12/23/24 03:08 Acetaminophen 325 Mg Tablet PO 12/23/24 02:59 650 mg ONCE ONE Administration Lorazepam 0.5 mg 12/23/24 02:58 12/23/24 03:08 Lorazepam 0.5 Mg Tablet PO 12/23/24 02:59 0.5 mg ONCE ONE Administration Lorazepam 0.5 mg 12/23/24 05:48 12/23/24 06:03 Lorazepam 0.5 Mg Tablet PO 12/23/24 05:49 0.5 mg ONCE ONE Administration Medical Decision Making Medical Decision Making [facility] Narrative: Patient is feeling much better after taking lorazepam does have other medications at home including hydroxyzine which advised to continue to take it and follow with PCP Discharge Plan Discharge Clinical Impression: Anxiety Patient Disposition: Home, Self-Care Instructions: Anxiety (ED) Additional Instructions: Take medication as prescribed by your PCP and follow up with him for further management Prescriptions: No Action atorvastatin 80 mg tablet 80 mg PO BEDTIME Eliquis 5 mg Tablet 5 mg PO BID Qty: 60 0RF omeprazole 40 mg capsule,delayed release(DR/EC) 40 mg PO DAILY@0630 duloxetine 20 mg capsule,delayed release(DR/EC) 20 mg PO DAILY melatonin 3 mg tablet 3 mg PO BEDTIME calcium carbonate [Oyster Shell Calcium 500] 500 mg calcium (1,250 mg) tablet 500 mg PO BID hydroxyzine HCl 25 mg tablet 25 mg PO Q8H PRN (Reason: anxiety) insulin degludec [Tresiba FlexTouch U-200] 200 unit/mL (3 mL) insulin pen 64 unit subcut DAILY loratadine 10 mg Tablet 10 mg PO DAILY Trulicity 1.5 mg/0.5 mL pen injector 1.5 mg subcut FR ammonium lactate 12 % Lotion 1 appl topical BID Qty: 400 0RF Protocol: Apply to: Apply to: bilateral lower extremities Rx Instructions: lower extremities doxycycline monohydrate 100 mg capsule 100 mg PO BID Qty: 14 0RF levothyroxine 88 mcg capsule 88 mcg PO DAILY Qty: 90 0RF aspirin 81 mg tablet,delayed release (DR/EC) 81 mg PO BEDTIME oxycodone-acetaminophen 5-325 mg tablet 1 tab PO Q6H PRN (Reason: pain) gabapentin 100 mg capsule 100 mg PO TID torsemide 20 mg tablet 20 mg PO DAILY Qty: 30 0RF amlodipine 5 mg Tablet 5 mg PO DAILY Qty: 30 0RF Protocol: Hold for SBP< HOLD for SBP < : 90 ketotifen fumarate [Eye Itch Relief] 0.025 % (0.035 %) drops 1 drp ophthalmic (eye) Q12H PRN (Reason: Eye Irritation) trazodone 150 mg tablet 150 mg PO BEDTIME Print Language: Swazi
--- OUTSIDE RECORDS SUMMARY | 2024-12-23 02:43 | XMS_ITS | Encounter Summary ---
Author Organization [employer] Address [address] [facility] [address] [place] [address] Care Team Providers Care Sales And Service Change Leader Name Role Phone Amanda Watkins MD Primary Care Provide r Hiro Ram Unavailable Unavailable Raad Arias PharmD Unavailable [phone] Reason for Visit * Reason Onset Date Comments Durable Medical Equipment 11/06/2024 Encounter Details Date Type Department Care Team (Late st Contact Info) Description 11/06/2024 Telephone [facility] [address] [place] [address] Amanda Watkins MD [address] [place] [address] Durable Medical Equipment Social History Tobacco Use [...] * Telephone Encounter - Margie Sánchez - 12/19/2024 1:35 PM EDT Eval request has [facility]. [facility] has a standing order and just needs to be called directly monthly by patient torefill Incontinence supplies. * Telephone Encounter - Laura Brand - 11/06/2024 11:55 AM EDT Tc from pt granddaughter Aby stating pt is requesting DME -pull ups size Xxl -Electric wheelchair (pt currently has manual) documented in this encounter Plan of Treatment Upcoming Encounters Date Type Department Care Team (Late st Contact Info) Description 01/17/2025 3:30 PM EDT Telemedicine [facility] [address] [place] [phone] Raad Arias, PharmD [address] [place] [address] 02/15/2025 1:00 PM EDT Telemedicine [facility] [address] [place] [address] Amanda Watkins MD [address] [place] [phone] documented as of this encounter Visit Diagnoses Not on filedocumented in this encounter Additional Health Concerns Assessment Noted Time PHQ-9 Depression Total Score: 0 09/01/19 25 1:18 PM EST documented as of this encounter Care Teams Sales And Service Change Leader Relationship Specialty Start Date End Date Amanda Watkins MD [address] [place] [phone] PCP - General Family Medicine 04/07/19 Hiro Ram FNP [address] [place] [phone] Nurse Practitioner Family Medicine 07/06/23 Raad Arias, TheaD [address] [place] [phone] Pharmacist Internal Medicine 10/19/24 Ja A 08/10/24 documented as of this encounter
--- OUTSIDE RECORDS SUMMARY | 2024-12-23 02:43 | XMS_ITS | Encounter Summary ---
Author Organization [email or web address] Address [address] [facility] [address] [place] [address] Care Team Providers Care Tinsmith Helper Name Role Phone Amanda Watkins MD Primary Care Provide r Hiro Ram Unavailable Unavailable Raad Arias PharmD Unavailable [phone] Reason for Visit * Reason Comments Med Refill Encounter Details Date Type Department Care Team ([facility] st Contact Info) Description 11/18/2023 Refill [facility] [address] [place] [address] Hiro Ram FNP Social History Tobacco Use [...] Info) Description 01/17/2025 3:30 PM EDT Telemedicine [facility] [address] [place] [phone] Raad Arias, PharmD [address] [place] [phone] 02/15/2025 1:00 PM EDT Telemedicine [facility] [address] [place] [phone] Amanda Watkins MD [address] [place] [phone] documented as of this encounter Visit Diagnoses Not on filedocumented in this encounter Additional Health Concerns Assessment Noted Time PHQ-9 Depression Total Score: 8 07/19/20 23 11:34 AM EST documented as of this encounter Care Teams Tinsmith Helper Relationship Specialty Start Date End Date Amanda Watkins MD [address] [place] [phone] PCP - General Family Medicine 04/07/19 Hiro Ram FNP [address] [place] [phone] Nurse Practitioner Family Medicine 07/06/23 Raad Arias, PharmD [address] [place] [phone] Pharmacist Internal Medicine 10/19/24 [facility] 07/03/22 08/16/24 Ja ARCE 08/10/24 documented as of this encounter
--- OUTSIDE RECORDS SUMMARY | 2024-12-23 02:43 | XMS_ITS | Data Portability ---
Author Organization [employer] - [employer], Al in - [employer] Address [address] [place] [address] Care Team Providers Care Wood Sawyer Name Role Phone HIM CCA OTHER CRUZ MAURICE Primary Care Provider [phone] Assessment Encounter Date Assessment Date Assessment LastModified by Organization Details LastModified Time 02/09/2024 02/09/2024 I provided real -time medical direction via phone for this encounter, and was available for additional phone based assistance as needed. I have reviewed and agree with the Assessment and Plan as documented by the Group Art Supervisor. We discussed the diagnostic uncertainty of home [...] to call 911- verbalized understanding of instruction [email or web address] Not available 02/10/2024 00:01:48 03/27/2024 03/27/2024 I provided real -time medical direction via phone for this encounter, and was available for additional phone based assistance as needed. I have reviewed and agree with the Assessment and Plan as documented by the Group Art Supervisor. We discussed the diagnostic uncertainty of home [...] to call 911- verbalized understanding of instruction [email or web address] Not available 03/27/2024 16:48:02 05/29/2024 05/29/2024 service [...] in the field was performed by my nematology teacher colleague, as noted above, I provided real-time [...] Appointments None recorded. Lab culture, urine 2023 [place] [facility] (Centralized Electronic Ordering - All Locations), Patient Can Go To The Location Of Their Choice, [id number] 4 08:09:10 urinalysis, dipstick 2023 [facility], [address] [place] [address], [phone] 4 20:30:58 glucose, fingerstick , blood 2023 024 [email or web address] 0 [facility], [address] [place] [address], [phone] 4 16:33:19 Referral None recorded. Procedures None recorded. Surgeries None recorded. Imaging None recorded. Medication Orders Ciprodex 0.3 %-0.1 % ear drops,suspe nsion 2024 025 [facility], [address] [place] [address], [id number], 5 12:33:11 clotrimazol e 1 % topical cream 2023 024 [facility], [address] [place] [address], [id number], 4 10:37:01 bacitracin 500 unit/gram topical ointment 2023 024 [email or web address] 0 [facility], [address] [place] [address], [id number], 4 11:28:20 bacitracin 500 unit/gram topical ointment 2023 024 [facility], [address] [place] [address], [id number], 4 14:30:32 doxycycline hyclate 100 mg tablet 2023 024 [email or web address] 0 [facility], [address] [place], [place], [id number], 16:35:58 doxycycline hyclate 100 mg capsule 2023 024 [id number], [address] [place], [address], 4 16:36:03 mupirocin 2 % topical ointment 2023 024 [id number], [address] [place], [address], 4 16:36:03 Patient TargetsNo targets recorded. Patient Instructions Encounter Date Encounter Id Patient Instructions Last Modified By Organization Details Last Modified Time 02/09/2024 [id number] wound care* [email or web address] Not available 16:35:58 03/27/2024 [id number] wound care* [email or web address] Not available 11:28:21 Reason for Referral None Reported. Results Created Date Observation Date Name Description Value Unit Range Abnormal Flag Note LastModifiedBy Organization Detail LastModifiedTime 02/09/2002/09/2024 gluco se, gemma rene, blood Blood Glucose: mg/dl 148 Not Available [facility] [address] [place] [address], [phone] 02/09/2024 16:30:22 05/29/20 24 05/31/2024 URINE CULTU RE,CO MPREH ENSIV E urine culture,comp rehensive Final report Not Available [facility] ([facility]) [address] [facility], [place], [address], 05/31/2024 08:09:10 05/29/2005/31/2024 URINE CULTU RE,CO MPREH ENSIV E result 1 COMMEN T Mixed uroge nital mary Great er than 100,0 00 colon y formi ng units per mL Not Available [facility] ([facility]) [address] [facility], [place], [address], 05/31/2024 08:09:10 Result Notes None recorded. Medical Equipment None Reported. Allergies Allergen ID Allergen Name Allergen Category Reaction Reaction Severity Criticality Documentation Date Start Date Code Code System Note Provider Name and Address Organization Details Recorded Time 5119 codeine medicatio n Not available Not available Not available 12/30/2023 2670 RxNorm Radha Foster MD [address] [facility],[address], [place], [phone], [facility] - Sur[employer] App, [employer] 14:14:47 Medications Name Sig Start Date Stop [...] Not Available Not Available Not Available [employer] [place] Lite kit USE DIRECTED TO TEST BLOOD [...] Available No t Available FreeStyle [place] [address] [place] USE DIRECTED EVERY 8 HOURS active Not [...] [degF] 16 /min 92 % 92 % 773819. 184 g 126 mm[Hg] 76 mm[Hg] Not Available [email or web address] 4 16:16:18 Date Recorded Body temperature Oxygen saturation Oxygen saturation in Arterial blood by Pulse oximetry Body weight Respiratory rate Heart rate Systolic blood pressure Diastolic blood pressure Provider Name and Address Organization Details Last Updated DateTime 4 97.6 [degF] 96 % 96 % 685413. 592 g 16 /min 62 /min 130 mm[Hg] 66 mm[Hg] Not Available [email or web address] 4 15:32:02 Date Recorded Respiratory rate Oxygen saturation Oxygen saturation in Arterial blood by Pulse oximetry Body height Heart rate Body temperature Body weight Systolic blood pressure Diastolic blood pressure Provider Name and Address Organization Details Last Updated DateTime 4 16 /min 94 % 94 % 157.48 cm 60 /min 98.7 [degF] 053169. 448 g 129 mm[Hg] 77 mm[Hg] Not Available [email or web address] 4 11:19:40 Date Recorded Heart rate Body height Body temperature Respiratory rate Oxygen saturation Oxygen saturation in Arterial blood by Pulse oximetry Body weight Systolic blood pressure Diastolic blood pressure Provider Name and Address Organization Details Last Updated DateTime 4 58 /min 134.62 cm 99.3 [degF] 16 /min 95 % 95 % 253334. 632 g 150 mm[Hg] 73 mm[Hg] Not Available [email or web address] 4 17:02:13 Date Recorded Body temperature Respiratory [...] SNOMED-CT Code Diagnosis ICD10 Code Diagnosis Note [id number] Radha Foster MD Main - [facility] [address] [place] [phone] 12/30/2023 14:10:14 12/31/2023 21:23:21 Cellulitis of lower limb [id number] L03.119 left lower leg primarily ? starting on right- has percocet 10/325 q 12 hrs- may have otc tylenol 2 x per day in between-da [facility] confirms he has regular Tylenol [...] better staph coverage-a dvised to apply sparingly. [id number] Radha Foster MD Main - [facility] [address] [place] [phone] 02/09/2024 16:16:11 02/10/2024 13:33:55 Cellulitis of lower limb [id number] L03.119 left lower leg primarily, less on right- had percocet 10/325 q 12 hrs- no longer on med list-may have otc tylenol 4 x per day in between-da [facility] confirms he has regular Tylenol [...] better staph coverage-a dvised to apply sparingly. 00004 Angely Lake MD Main - [address] [phone] 02/23/2024 15:31:54 02/23/2024 22:21:20 Peripheral vascular disease 958323091 I73.9 73 year old female being evaluated [...] assessment and plan as documented by the nematology teacher. I provided real-time medical direction for this encounter and was immediatel y available to provide additional phone-base d assistance as needed. We discussed the diagnostic uncertaint y of home visits and associated risks. We discussed the need to seek care urgently/e mergently in the setting of any new or worsening symptoms. [id number] Radha Foster MD Main - [address] [address] 03/27/2024 11:19:23 03/27/2024 22:47:07 Wound of skin 717832017 T14.8XXA Advised to elevate the leg/not use [...] reviewed she is only allergic to codeine. [id number] Len Nguyen MD Main - [address] [address] 05/29/2024 17:02:10 05/30/2024 10:24:58 Tinea francess 050528605 B35.6 Urinary symptoms 2572449 08 R39.9 [id number] Michelle Rg MD Main - [facility] [address] [place] [address] 09/25/2024 17:25:19 09/26/2024 08:34:36 Otitis externa of right ear [id number] 743404 H60.91 Health Concerns Section Related Observation LastModified by Organization Detai ls LastModified Time None Recorded Concern Status LastModified by Organization Details LastModified Time None Recorded Advance Directives Directive None Recorded Payers Insurance Date Sequence Insurance Name Policy Number Policy Meza Covered Member ID Meza Member ID Guarantor Name 09/25/2024 1 [facility] - DOS ON OR AFTER 2022 - DUAL ELIGIBLE - INTERMEDIATE OPTIONS AND ONE CARE (MEDICARE REPLACEMENT/ADV ANTAGE - HMO) [facility] [id number] [facility] Notes Date Note Type Note Provider Name and Address Organization Details Recorded Time 02/09/2024 text/html HPI: PMHx: Varicose veinsCall returned to [facility] to triage below. Reports pt having rash [...] any additional information to process this visit. Group Art Supervisor POC Test Results from Jerman Anderson - [facility] Blood Glucose Measurement (16:42:48) Blood Glucose: 148 mg/dL .................... .................... .................... .................... .................... .................... .................... . Group Art Supervisor Note From Jerman Anderson[facility]. Pt presents conscious and alert. Pt Zimbabwean speaking only so daughter translated. Daughter reports [...] as well. Blood glucose assessed. Consulted with [facility] Dr. Foster who prescribed additional course of [...] PCP in the office. Radha Foster MD [address] [place] [address],[address], [place], [phone], [employer] 02/10/2024 00:01:57 02/23/2024 text/html HPI: Patient has [...] for .Prescribed doxy at [facility] visit .................... .................... .................... .................... .................... .................... .................... . CRC Nurse Triage Notes (Nicole Bell): Comments: CRC RN DID NOT NEED FURTHER INFO .................... .................... .................... .................... .................... .................... .................... . Group Art Supervisor Note From Abelardo Castro: Pt daughter concerned for wound/celilitis on legs not healing after antibiotic treatment. Pt denies fever pain edema or wheeping. Baseline vitals assessed. Cellulitis appears to be in healing stages. No bleeding or wheeping. Pictures uploaded. Pt sts has appt with pcp on Wednesday. . C contacted and [facility] spoke with pt and advised to monitor for worsening redness or edema. Pt advised to follow up with pcp. Pt education on signs indicating the ER. .................... .................... .................... .................... .................... .................... .................... . Disposition: Fulfilled Angely Lake MD [address] [place] [address],[address], [place], [address], Jooce 02/23/2024 21:33:16 03/27/2024 text/html CRC Nurse Triage Notes (Rishi Domínguez): Reason For Request: left leg pain Chief Complaints: Pain PMH: Diabetes, Hypertension, COPD/Asthma Other Allergies: NKDA Comments: Physician Ophthalmologist verified the member's name//address and phone number. [...] .................... .................... .................... .................... .................... .................... . Group Art Supervisor Note From Markell Villagomez: Pt? s daughter/CG reports pt was seen at [place] [facility] last week for cellulitis of the [...] . Disposition: Fulfilled Radha Foster MD [address] [facility],[address], [place], [phone], [facility] [employer] 03/27/2024 16:49:56 05/29/2024 text/html HPI: pmhx: UTI, candidiasis of vagina UTI, urine retention.Call returned to [facility] to triage below. Reports having rash on callie area x 1 week. Per daughter no fluid filled spots. Small red pin point spots. Pt also having urinary frequency. Has applied Vaseline to area with mild relief. Per daughter concerned as pt is DM and has been scratching area concerned for infection. Unable to bring pt to WIC at [facility] as pt is bed bound. Agrees to [employer] referral. Confirmed address, contact number and allergies. .................... .................... .................... .................... .................... .................... .................... . CRC Nurse Triage Notes (Melinda Melvin): Chief Complaints: Rash, UTI/Pyelonephritis PMH: COPD/Asthma, Diabetes, Hypertension, COPD/Asthma Other Allergies: CODIENE Comments: CRC RN did not require any additional information to process this visit. Group Art Supervisor Organization Information for Jerman Anderson Business Legal Name: [email or web address] Address: [address] [place] [address], Social Group Worker: Jhon HERNANDEZ No.: [id number] Group Art Supervisor POC Test Results from Justin Jermanyung [facility] Blood Glucose Measurement (16:52:17) Blood Glucose: 335 mg/dL Urine Dipstick (16:52:27) Urine leukocytes: + ALVIN Urine nitrites: + NIT Urine urobilinogen: - URO Urine protein: +/- PRO Urine pH: 6.0 pH Urine blood: 50 lesli/ul BLO Urine specific gravity: 1.005 SG Urine ketones: - KET Urine bilirubin: - ROSI Urine glucose: ++++ GLU .................... .................... .................... .................... .................... .................... .................... . Group Art Supervisor Note From Jerman Anderson: [facility] visit for female pt. Pt presents with family and WHEEL AND CASTER REPAIRER. Pt has reportedly had redness and irritation in her groin for 1 week in addition to high blood sugars. V/S taken as listed. Pt afebrile, though temp seems to be elevated with pt having taken acetaminophen today. WHEEL AND CASTER REPAIRER changed pt's diaper and redness was noted in addition to smell consistent with possible fungal infection. Obtained urine sample positive for leukocytes and nitrates and blood and glucose. Blood glucose elevated at 335 mg/dL. Family reports difficulty maintaining blood sugar and that pt has not adhered to dietary restrictions. Urine culture obtained. Consulted with [facility] Dr. Nguyen who prescribed clotrimazole and ordered urine culture. Reviewed red flags for ED. Pt education provided. Culture delivered to [facility]. [facility] Lab Orders: culture, urine: Performed .................... .................... .................... .................... .................... .................... .................... . Disposition: Mathew Len Nguyen MD [address] [facility],[address], [place], [phone], [employer] [facility] [employer] 05/29/2024 22:50:45 09/25/2024 text/html CRC Nurse Triage Notes (Margarita Verde - PHILLIP): Chief Complaints: Earache, Back pain, Neck pain PMH: Hypertension, COPD/Asthma, Chronic Back Pain, Fibromyalgia, Osteoarthritis, Osteoporosis PMH Reviewed at 09/25/2024: Allergies Reviewed at 09/25/2024: Comments: Patient is c/o right ear, back [...] s/s and seek emergency treatment if needed. Group Art Supervisor Organization Information for Markell Villagomez [employer]ART[employer] Legal Name: [facility] Address: [address] [place] [address], Social Group Worker: Rob Bhagat MD [place] No.: [id number] Group Art Supervisor POC Test Results from [facility] Rapid COVID antigen (17:31:49) COVID: - Rapid influenza antigen (17:31:49) Flu: - CRC Nurse Triage Notes (Margarita eVrde RN): Chief Complaints: Earache, Back pain, Neck [...] reported s/s and seek emergency treatment if needed.[facility] HPI: known FM, chronic pain, uses oxycodone and gabapentin for this. 3-7d R ear pain. some sinus congestion .................... .................... .................... .................... .................... .................... .................... . Group Art Supervisor Note From Markell Villagomez: This 74-year-old female [...] .................... .................... .................... .................... .................... .................... . [facility] Consulted: Michelle Rg .................... .................... .................... .................... .................... .................... .................... . Disposition: Fulfilled Michelle Rg MD [address] [place] [address],[address], [place], [phone], Jooce 09/25/2024 18:01:43 OBGyn Episode No OBEpisode recorded.
--- OUTSIDE RECORDS SUMMARY | 2024-12-23 02:43 | XMS_ITS | Encounter Summary ---
Author Organization [employer] Address [address] [facility] 7t [place] [address] Care Team Providers Care Chemical Waste Management Technician Name Role Phone Amanda Watkins MD Primary Care Provide r Hiro Rma Unavailable Unavailable Raad Arias PharmD Unavailable [phone] Reason for Visit * Reason Comments Med Refill Encounter Details Date Type Department Care Team (Late st Contact Info) Description 10/16/2024 Refill [facility] [address] [place] [address] Amanda Watkins MD [address] [place] [address] Chronic bilateral low back pain with bilateral [...] Info) Description 01/17/2025 3:30 PM EDT Telemedicine [facility] [address] [place] [address] Raad Arias, PharmD [address] [place] [address] 02/15/2025 1:00 PM EDT Telemedicine [address] [address] Amanda Watkins MD [address] [place] [address] documented as of this encounter Visit Diagnoses Diagnosis Chronic bilateral low back pain with bilateral sciatica documented in this encounter Additional Health Concerns Assessment Noted Time PHQ-9 Depression Total Score: 0 09/01/19 25 1:18 PM EST documented as of this encounter Care Teams Chemical Waste Management Technician Relationship Specialty Start Date End Date Amanda Watkins MD [address] [place] [address] PCP - General Family Medicine 04/07/19 Hiro Ram FNP [address] [place] [address] Nurse Practitioner Family Medicine 07/06/23 Raad Arias, TheaD [address] [place] [address] Pharmacist Internal Medicine 10/19/24 Ja [facility] 08/10/24 documented as of this encounter
--- OUTSIDE RECORDS SUMMARY | 2024-12-23 02:43 | XMS_ITS | Encounter Summary ---
Author Organization [employer] Address [address] [facility] [address] [place] [address] Care Team Providers Care Production Solderer Name Role Phone Amanda Watkins MD Primary Care Provide r Hiro Ram Unavailable Unavailable Raad Arias PharmD Unavailable [phone] Reason for Visit * Reason Comments Med Refill Encounter Details Date Type Department Care Team ([facility] st Contact Info) Description 02/11/[address] [facility] [address] [place] [address] Amanda Watkins MD [address] [place] [address] Type 2 diabetes mellitus with other specified complication, unspecified whether long term care social worker insulin use ([facility]) Social History Tobacco Use Types Packs/Day Years [...] Info) Description 01/17/2025 3:[address] [facility] [address] [place] [address] Raad Arias, PharmD [address] [place] [address] 02/15/2025 1:[address] [facility] [address] [place] [address] Amanda Watkins MD [address] [place] [address] documented as of this encounter Visit Diagnoses Diagnosis Type 2 diabetes mellitus with other specified complication, unspecified whether fdc insulin use ([facility]) documented in this encounter Additional Health Concerns Assessment Noted Time PHQ-9 Depression Total Score: 10 024 3:23 PM EDT documented as of this encounter Care Teams Production Solderer Relationship Specialty Start Date End Date Amanda Watkins MD [address] [place] [address] PCP - General Family Medicine 04/07/19 Hiro Ram FNP [address] [place] [address] Nurse Practitioner Family Medicine 07/06/23 Raad Arias, PharmD [address] [place] [address] Pharmacist Internal Medicine 10/19/24 [facility] 07/03/22 08/16/24 Ja [facility] 08/10/24 documented as of this encounter
--- OUTSIDE RECORDS SUMMARY | 2024-12-23 02:43 | XMS_ITS | Encounter Summary ---
Author Organization [employer] Address [address] [facility] [address] [place] [address] Care Team Providers Care Learning Coach Name Role Phone Amanda Watkins MD Primary Care Provide r Hiro Ram Unavailable Unavailable Raad Arias PharmD Unavailable [phone] Reason for Visit * Reason Comments Med Refill Encounter Details Date Type Department Care Team ([facility] st Contact Info) Description 09/27/2024 Refill [facility] [address] [place] [address] Ann Kulkarni DO [address] [place] [address] Social History Tobacco Use Types Packs/Day Years [...] Info) Description 01/17/2025 3:30 PM EDT Telemedicine [facility] [address] [place] [address] Raad Arias, PharmD [address] [place] [address] 02/15/2025 1:00 PM EDT Telemedicine [facility] [address] [place] [address] Amanda Watkins MD [address] [place] [address] documented as of this encounter Visit Diagnoses Not on filedocumented in this encounter Additional Health Concerns Assessment Noted Time PHQ-9 Depression Total Score: 0 09/01/19 25 1:18 PM EST documented as of this encounter Care Teams Learning Coach Relationship Specialty Start Date End Date Amanda Watkins MD [address] [place] [address] PCP - General Family Medicine 04/07/19 Hiro Ram FNP [address] [place] [address] Nurse Practitioner Family Medicine 07/06/23 Raad Arias, PharmD [address] [place] [address] CORINNE Peres [address] Pharmacist Internal Medicine 10/19/24 Ja [facility] 08/10/24 documented as of this encounter
--- OUTSIDE RECORDS SUMMARY | 2024-12-23 02:43 | XMS_ITS | Encounter Summary ---
Author Organization [employer] Address 75 [facility] 7t [place] [address] Care Team Providers Care Metal Fabricator Welder Name Role Phone Amanda Watkins MD Primary Care Provide r Hiro Ram Unavailable Unavailable Raad Arias PharmD Unavailable [phone] Reason for Visit * Reason Comments Med Refill Encounter Details Date Type Department Care Team ([facility] st Contact Info) Description 10/10/2024 Refill [facility] [address] [place], [place] [phone] Amanda Watkins MD 230 [place] [address] Social History Tobacco Use Types Packs/Day Years [...] Info) Description 01/17/2025 3:30 PM EDT Telemedicine [facility] MEDICINE [address] [place] [address] Raad Arias, PharmD [address] [place] [address] 02/15/2025 1:00 PM EDT Telemedicine [facility] [address] [place] [address] Amanda Watkins MD [address] [place] [address] documented as of this encounter Visit Diagnoses Not on filedocumented in this encounter Additional Health Concerns Assessment Noted Time PHQ-9 Depression Total Score: 0 09/01/19 25 1:18 PM EST documented as of this encounter Care Teams Metal Fabricator Welder Relationship Specialty Start Date End Date Amanda Watkins MD [address] [place] [address] PCP - General Family Medicine 04/07/19 Hiro Ram FNP [address] [place] [address] [place] [address] Nurse Practitioner Family Medicine 07/06/23 Raad Arias, PharmD [address] [facility] [place] [address] Pharmacist Internal Medicine 10/19/24 Ja [facility] 08/10/24 documented as of this encounter
--- OUTSIDE RECORDS SUMMARY | 2024-12-23 02:44 | XMS_ITS | Encounter Summary ---
Author Organization [employer] Address 75 [facility] 7t [place] [address] Care Team Providers Care Sr. Merchandise Planner Name Role Phone Amanda Watkins MD Primary Care Provide r Hiro Ram Unavailable Unavailable Raad Arias PharmD Unavailable [phone] Reason for Visit * Reason Onset Date Comments Durable Medical Equipment 12/18/2024 Encounter Details Date Type Department Care Team (Late st Contact Info) Description 12/18/2024 Telephone [facility] MEDICINE 230 [place] [address] Amanda Watkins MD 230 [place] [address] Durable Medical Equipment Social History Tobacco Use [...] is your housing situation today? I have armiro troy 05/24/[address] you [...] Telephone Encounter - Margie Sánchez - 12/19/2024 4:12 PM EDT Home Care Delivered has a standing order and just needs to be called directly monthly by patient torefill Incontinence supplies. * Telephone Encounter - Radha Stevenson - 12/18/2024 11:33 AM EDT Tc from Daughter requesting DME supplies : XL bed pads 2XL Pull-ups documented in this encounter Plan of Treatment Upcoming Encounters Date Type Department Care Team (Late st Contact Info) Description 01/17/2025 3:30 PM EDT Telemedicine [facility] MED[facility]INE [address] [place] [address] Raad Arias, PharmD 230 [place] [address] 02/15/2025 1:00 PM EDT Telemedicine [facility] MED[facility]INE [address] [place] [address] Amanda Watkins MD [address] [place] [address] documented as of this encounter Visit Diagnoses Not on filedocumented in this encounter Additional Health Concerns Assessment Noted Time PHQ-9 Depression Total Score: 0 09/01/19 1:18 PM EST documented as of this encounter Care Teams Sr. Merchandise Planner Relationship Specialty Start Date End Date Amanda Watkins MD [address] [place] [address] PCP - General Family Medicine 04/07/19 Hiro Ram FNP [address] [place] [address] Nurse Practitioner Family Medicine 07/06/23 Raad Arias, TheaD [address] [place] [address] Pharmacist Internal Medicine 10/19/24 Ja A 08/10/24 documented as of this encounter
--- OUTSIDE RECORDS SUMMARY | 2024-12-23 02:44 | XMS_ITS | Encounter Summary ---
Author Organization [employer] Address 75 [facility] 7t [place] [address] Care Team Providers Care Conference Manager Name Role Phone Amanda Watkins MD Primary Care Provide r Hiro Ram Unavailable Unavailable Raad Arias PharmD Unavailable [phone] Encounter Details Date Type Department Care Team (Late st Contact Info) Description 12/20/2024 Telephone [facility] 230 [place] [address] Sia Leon, PharmD 230 [place] [address] Social History Tobacco Use Types Packs/Day Years [...] Telephone Encounter - Sia Leon PharmD - 12/20/2024 4:28 PM EDT Please assist in scheduling patient for HDF. They were discharged from [facility] 12/08/24. Thank you documented in this encounter Plan of Treatment Upcoming Encounters Date Type Department Care Team (Late st Contact Info) Description 01/17/2025 3:30 PM EDT Telemedicine [facility] [address] [place] [address] Raad Arias, PharmD [address] [place] [address] 02/15/2025 1:00 PM EDT Telemedicine [facility] [address] [place] [address] Amanda Watkins MD [address] [place] [address] documented as of this encounter Visit Diagnoses Not on filedocumented in this encounter Additional Health Concerns Assessment Noted Time PHQ-9 Depression Total Score: 0 09/01/19 1:18 PM EST documented as of this encounter Care Teams Conference Manager Relationship Specialty Start Date End Date Amanda Watkins MD [address] [place] [address] PCP - General Family Medicine 04/07/19 Hiro Ram FNP [address] [place] [address] Nurse Practitioner Family Medicine 07/06/23 Raad Arias, TheaD [address] [place] [address] Pharmacist Internal Medicine 10/19/24 Ja A 08/10/24 documented as of this encounter
--- OUTSIDE RECORDS SUMMARY | 2024-12-23 02:44 | XMS_ITS | Encounter Summary ---
Author Organization [employer] Address 75 [facility] 7t [place] [address] Care Team Providers Care Weight Engineer Name Role Phone Amanda Watkins MD Primary Care Provide r Hiro Ram Unavailable Unavailable Raad Arias PharmD Unavailable [phone] Encounter Details Date Type Department Care Team (Late st Contact Info) Description 06/27/2024 Orders Only [facility] MEDICINE 230 [place] [address] Amanda Watkins MD 230 [place] [address] Social History Tobacco Use Types Packs/Day Years [...] Description 01/17/2025 3:30 PM EDT Telemedicine [facility] MEDICINE [address] [place] [address] Raad Arias, TheaD [address] [place] [address] 02/15/2025 1:00 PM EDT Telemedicine [address] [address] Amanda Watkins MD [address] [place] [address] documented as of this encounter Visit Diagnoses Not on filedocumented in this encounter Additional Health Concerns Assessment Noted Time PHQ-9 Depression Total Score: 10 024 3:23 PM EDT documented as of this encounter Care Teams Weight Engineer Relationship Specialty Start Date End Date Amanda Watkins MD [address] [place] [address] PCP - General Family Medicine 04/07/19 Hiro Ram FNP [address] [place] [address] Nurse Practitioner Family Medicine 07/06/23 Raad Arias, PharmD [address] [place] [address] Pharmacist Internal Medicine 10/19/24 [facility] Care 07/03/22 08/16/24 Ja [facility] 08/10/24 documented as of this encounter
--- OUTSIDE RECORDS SUMMARY | 2024-12-23 02:44 | XMS_ITS | Encounter Summary ---
Author Organization [employer] Address 75 [facility] 7t [place] [address] Care Team Providers Care Egg Pasteurizer Name Role Phone Amanda Watkins MD Primary Care Provide r Hiro Ram Unavailable Unavailable Raad Arias PharmD Unavailable [phone] Reason for Visit * Reason Onset Date Comments Appointment Request 12/20/2024 Encounter Details Date Type Department Care Team ([facility] Contact Info) Description 12/20/2024 Telephone [facility] MEDICINE 230 [place] [address] Amanda Watkins MD 230 [place] [address] Appointment Request Social History Tobacco Use Types Packs/Day [...] encounter Miscellaneous Notes * Telephone Encounter - Rose Simeon MA - 12/20/2024 10:21 AM EDT Tc to pt to schedule needed apt for accommodation request from [facility]. Appt has been scheduled for 02/16/25 at 1:00 pm. documented in this encounter Plan of Treatment Upcoming Encounters Date Type Department Care Team (Late st Contact Info) Description 01/17/2025 3:30 PM EDT Telemedicine [facility] MEDICINE [address] [place] [address] Raad Arias, PharmD [address] [place] [address] 02/15/2025 1:00 PM EDT Telemedicine [facility] MED[facility]INE [address] [place] [address] Amanda Watkins MD [address] [place] [address] documented as of this encounter Visit Diagnoses Not on filedocumented in this encounter Additional Health Concerns Assessment Noted Time PHQ-9 Depression Total Score: 0 01/24/20 25 1:18 PM EST documented as of this encounter Care Teams Egg Pasteurizer Relationship Specialty Start Date End Date Amanda Watkins MD 230 [place] [address] PCP - General Family Medicine 04/07/19 Hiro Ram FNP 230 [place] [address] Nurse Practitioner Family Medicine 07/06/23 Raad Arias, TheaD 230 [place] [address] Pharmacist Internal Medicine 10/19/24 Ja [facility] 08/10/24 documented as of this encounter
--- OUTSIDE RECORDS SUMMARY | 2024-12-23 02:44 | XMS_ITS | Encounter Summary ---
Author Organization [employer] Address 75 [facility] 7t [place] [address] Care Team Providers Care High School Chemistry Teacher Name Role Phone Amanda Watkins MD Primary Care Provide r Hiro Ram BEAM WARPER Unavailable Unavailable Raad Arias PharmD Unavailable [phone] Reason for Visit * Reason Onset Date Comments Housing Form 12/20/2024 I called the pat ient to get more information, regarding a reasonable accommodation request, from [facility]. Her daughter Nai answered, and stated that the patient is requesting a two bedroom apartment. She cannot be left alone, and has a PRE SALES TECHNICAL CONSULTANT during the night. She would like for them to have a place to rest. Encounter Details Date Type Department Care Team (Late st Contact Info) Description 12/20/2024 Telephone [facility] MEDICINE [address] [place], [place] [phone] Amanda Watkins MD [address] [place], [place] [phone] Housing Form (I called the patient to get more information, regarding a reasonable accommodation request, from [facility]. Her daughter Nai answered, and stated that the patient is requesting a two bedroom apartment. She cannot be left alone, and has a PRE SALES TECHNICAL CONSULTANT during the night. She would like for them to have a place to rest. ) Social History Tobacco Use Types Packs/Day [...] encounter Miscellaneous Notes * Telephone Encounter - Rosa Ramey MA - 12/20/2024 10:17 AM EDT I called the patient to get more information, regarding a reasonable accommodation request, from [facility]. Her daughter Nai answered, and stated that the patient is requesting a two bedroom apartment. She cannot be left alone, and has a PRE SALES TECHNICAL CONSULTANT during the night. She would like for them to have a place to rest. documented in this encounter Plan of Treatment Upcoming Encounters Date Type Department Care Team (Late st Contact Info) Description 01/17/2025 3:30 PM EDT Telemedicine [facility] MEDICINE [address] [place] [address] Raad Arias, PharmD [address] [place], [place] 02/15/2025 1:[address] [facility] [address] [place] [address] Amanda Watkins MD [address] [place] [address] documented as of this encounter Visit Diagnoses Not on filedocumented in this encounter Additional Health Concerns Assessment Noted Time PHQ-9 Depression Total Score: 0 09/01/19 1:18 PM EST documented as of this encounter Care Teams High School Chemistry Teacher Relationship Specialty Start Date End Date Amanda Watkins MD [address] [place] [address] PCP - General Family Medicine 04/07/19 Hiro Ram FNP [address] [place] [address] Nurse Practitioner Family Medicine 07/06/23 Raad Arias, PharmD [address] [place] [address] Pharmacist Internal Medicine 10/19/24 [facility] 08/10/24 documented as of this encounter
--- OUTSIDE RECORDS SUMMARY | 2024-12-23 02:44 | XMS_ITS | Clinical Summary ---
Author Organization [facility] Address [address] [place] [phone] Phone Care Team Providers Care Radiation Officer Name Role Phone Amanda Watkins MD [...] Mass Index - - Plan of Treatment Health Maintenance Due Date Last Done Comments Breast Cancer Screening 1949 Colorectal Cancer Screening: Annual FOBT 1998 Colorectal Cancer Screening: Colonoscopy 1998 Colorectal Cancer Screening: Sigmoidoscopy 1998 Diabetes: Ophthalmology Exam 03/01/2023 Diabetes: Pedal Pulse Checked 03/01/2023 Diabetes: Sensory Foot Exam 03/01/2023 Diabetes: Visual Foot Exam 03/01/2023 Diabetes: Hemoglobin A1C 11/30/2024 09/01/2024, 02/07 Hepatitis B Vaccine Aged Out 06/07/2007, 11/01/2006, 03/12/2006 No longer eligible based on patient's age to complete this topic Pneumococcal Vaccine: 50+ Years Completed 12/06/2023, 07/16/2016, 02/17/2013, Additional history exists Pneumococcal Vaccine: Peds (0 to 5 Years) and At-Risk Patients (6 to 49 Years) Discontinued 12/06/2023, 07/16/2016, 02/17/2013, Additional history exists Influenza Vaccine Completed 06/23/2024, , 09/30/2017, Additional history exists Insurance [facility] ([id number]) [facility] ([id number]) Care Teams Radiation Officer Relationship Specialty Start Date End Date Amanda Watkins MD [address] [place] [phone] PCP - General Internal Medicine 03/01/23
--- OUTSIDE RECORDS SUMMARY | 2024-12-23 02:44 | XMS_ITS | Encounter Summary ---
Author Organization [employer] Address 75 [facility] 7t [place] [address] Care Team Providers Care Movie Producer Name Role Phone Amanda Watkins MD Primary Care Provide r Hiro Ram Unavailable Unavailable Raad Arias PharmD Unavailable [phone] Reason for Visit * Reason Onset Date Comments medication 12/22/2024 Encounter Details Date Type Department Care Team (Late st Contact Info) Description 12/22/2024 Refill [facility] MEDICINE 230 [place] [address] Amanda Watkins MD 230 [place] [address] Chronic bilateral low back pain with bilateral [...] as of this encounter Miscellaneous Notes * Addendum Note - Agata Judd RN - 12/22/2024 9:36 AM EDTAddended by: AGATA JUDD on: 12/22/2024 09:36 AM Modules accepted: Orders * Telephone Encounter - Agata Judd RN - 12/22/2024 9:35 AM EDT [facility] reviewed, pt. Last picked up 7 day supply 11/28/24, rx pended * Telephone Encounter - Alie Klein - 12/22/2024 9:27 AM EDT PT daughter walked in requesting a refill on the following medication oxyCODONE- percocet 5-325 MG Tablet documented in this encounter Plan of Treatment Upcoming Encounters Date Type Department Care Team (Late st Contact Info) Description 01/17/2025 3:30 PM EDT Telemedicine [facility] MEDICINE [address] [place] [address] Raad Arias, PharmD [address] [place] [address] 02/15/2025 1:00 PM EDT Telemedicine [facility] MEDICINE [address] [place] [address] Amanda Watkins MD [address] [place] [address] documented as of this encounter Visit Diagnoses Diagnosis Chronic bilateral low back pain with bilateral sciatica documented in this encounter Additional Health Concerns Assessment Noted Time PHQ-9 Depression Total Score: 0 09/01/19 1:18 PM EST documented as of this encounter Care Teams Movie Producer Relationship Specialty Start Date End Date Amanda Watkins MD [address] [place] [address] PCP - General Family Medicine 04/07/19 Hiro Ram FNP [address] [place] [address] Nurse Practitioner Family Medicine 07/06/23 Raad Arias, PharmD [address] [place] [address] Pharmacist Internal Medicine 10/19/24 Ja Tyra 08/10/24 documented as of this encounter
--- OUTSIDE RECORDS SUMMARY | 2024-12-23 02:44 | XMS_ITS | Encounter Summary ---
Author Organization [employer] Address 75 [facility] 7t [place] [address] Care Team Providers Care Unclaimed Property Officer Name Role Phone Amanda Watkins MD Primary Care Provide r Hiro Ram Unavailable Unavailable Raad Arias PharmD Unavailable [phone] Reason for Visit * Reason Onset Date Comments Hospital Follow-up 08/16/2024 Encounter Details Date Type Department Care Team (Late st Contact Info) Description 08/16/2024 Telephone [facility] MEDICINE 230 [place] [address] Amanda Watkins MD [address] [place] [address] Hospital Follow-up Social History Tobacco Use Types [...] from pt requesting a HDF appt. Hospital: [facility] Date of admission: 08/12/24 Discharge date: 08/15/2024 Diagnosed: (water in the lungs) *Send message to [facility] Clinical Care Coordinators documented in this encounter Plan of Treatment Upcoming Encounters Date Type Department Care Team (Late st Contact Info) Description 01/17/2025 3:30 PM EDT Telemedicine [facility] MEDICINE [address] [place] [address] Raad Arias, PharmD [address] [place] [address] 02/15/2025 1:00 PM EDT Telemedicine [facility] MEDICINE [address] [place] [address] Amanda Watkins MD [address] [place] [address] documented as of this encounter Visit Diagnoses Not on filedocumented in this encounter Additional Health Concerns Assessment Noted Time PHQ-9 Depression Total Score: 10 024 3:23 PM EDT documented as of this encounter Care Teams Unclaimed Property Officer Relationship Specialty Start Date End Date Amanda Watkins MD [address] [place] [address] PCP - General Family Medicine 04/07/19 Hiro Ram FNP [address] [place] [address] Nurse Practitioner Family Medicine 07/06/23 Raad Arias, TheaD 230 [place] [address] Pharmacist Internal Medicine 10/19/24 [facility] 07/03/22 08/16/24 Ja A 08/10/24 documented as of this encounter
--- OUTSIDE RECORDS SUMMARY | 2024-12-23 02:44 | XMS_ITS | Encounter Summary ---
Author Organization [employer] Address [address] [facility] 7t [place] [address] Care Team Providers Care Drilling Inspector Name Role Phone Amanda Watkins MD Primary Care Provide r Hiro Ram SEASONING SPRAYER Unavailable Unavailable Raad Arias PharmD Unavailable [phone] Reason for Referral * Medications - Closed Specialty Diagnoses / Procedures Referred By Caren queen Referred To Contact Diagnoses Type 2 diabetes mellitus with hyperglycemia, with long-term current use of insulin ([facility]) Raad Arias, PharmD [address] [place] [address] Phone: tel: fax: Referral ID Status Reason Start Date Expiration Date Visits Re quested Visits Authorized [id number] Closed 1 1 Reason for Visit * Consultation (Routine) - Pending Review Specialty Diagnoses / Procedures Referred By Caren queen Referred To Contact Pharmacy Diagnoses Type 2 diabetes mellitus with hyperglycemia, with long-term current use of insulin ([facility]) Amanda Watkins MD [address] [place] [address] Phone: tel: fax: Referral ID Status Reason Start Date Expiration Date Visits Requested Visits Authorized [id number] Pending Review Consult and Treat 09/01/2024 09/01/2025 6 6 Encounter Details Date Type Department Care Team (Late st Contact Info) Description 12/20/2024 3:30 PM EDT Telemedicine [facility] [address] [place] [address] Raad Arias PharmD [address] [place] [address] Type 2 diabetes mellitus with hyperglycemia, with long-term current use of insulin ([facility]) (Primary Dx) Social History Tobacco Use Types Packs/Day Years [...] the past 12 months, has t he [employer] gas, oil or [employer] threatened to shut off services in your [...] as of this encounter Progress Notes * Raad Arias, PharmD - 12/20/2024 3:30 PM EDT Pharmacy Consult Visit Type: CDTM Pharmacist: Raad Arias, TheaD Referring Provider: Wendi Referral Dx: E11.65,Z79.4 (ICD-10-CM) - Type 2 diabetes mellitus with hyperglycemia, with long-term current use of insulin ([facility]) Date Referred: 09/01/2024 Visit #: Franky Cisneros ([phone])is a 74 y.o. year old patient here for follow-up visit completed over the phone. Subjective History: General / Intake (updated 12/20/2024) Allergies: is allergic to codeine. Read/Write: Yes, in Ukrainian Recent Hospitalizations: Yes [facility] ED 12/06/2024 - Patient presented with pain and anxiety. [facility] 12/06-12/08/2024: Agitation, Anxiety, Wide Complex tachycardia, cellulitis, hypothyroidism. Treated with doxycycline, ammonium lactate, hydroxyzine, gabapentin, and levothyroxine increased to 88 mcg. Doxycycline filled at [facility], but lovely Smith at [facility] no prescription on record for levothyroxine 88 mcg. [facility] ED 12/09/2024: Gout attack, directed to wear splint take prednisone as prescribed. (No record of prescription) Social History as reported by patient: Tobacco: Denies Alcohol: Denies Caffeine: Current, 1-2 cup of coffee with milk/day Illicit drugs: Denies Diet: Does not follow a diet Exercise: Denies Adherence / patient self-management Has assistance from Son (MACHINE SEWER), Granddaughter (Aby Núñez [phone]) with managing medications Reports satisfaction with medboxes Refill history demonstrates adherence to medications included in the medboxes, but MACHINE SEWER reports the following: Insulin doses occasionally get forgotten (1-2 times weekly) as different family members assist on different evenings. OTC medication, vitamin, supplement use: denies Medication discrepancy: [facility] discharge summary mentions levothyroxine increased to 88 mcg daily. Daughter is unaware of this. Daughter will check discharge paperwork a verify, which pharmacy prescription was sent to. Pharmacist called [facility] pharmacy there is no record at [facility] which is where the doxycycline was filled. Type 2 Diabetes Reports injecting 64 units of Tresiba daily and Trulicity 1.5 mg on Fridays. Patient does not self administer injections, MACHINE SEWER or Son inject. MACHINE SEWER report satisfaction with insulin pens over the syringes. Patient denies CARLA with Trulicity, but MACHINE SEWER notices patient does often complain of upset stomach. Patient and MACHINE SEWER admit the patient excessively eats and eats meals high in carbohydrates and fried foods. Pertinent negatives include polyuria, polydipsia, blurred vision Patient discontinued use of CGM. Patient having difficulty scanning CGM with telephone. MACHINE SEWER believes CGM reader was found in patients home, MACHINE SEWER will assist the patient with sensor placement to restart monitoring with reader. MACHINE SEWER has been monitoring with finger capillary BG check. Reports FBG often 270's. MACHINE SEWER concerned because BG measured HI on a couple of days after insulin doses were missed. denies experiencing hypoglycemia (<70mg/dL) Objective History: Treatment history/considerations: PMH: Type 2 DM, HTN, CKD (Stage 3b), dyslipidemia, Afib, CHF, coronary atherosclerosis, asthma, ANILA, incontinence, depression, anxiety, varicose veins, hypothyroidism, arthritis (knee), Lumbar radiculopathy, bilateral sciatica. Medications: Losartan discontinued 05/2024, Hyperkalemia 08/2024. Glipizide: discontinued 03/2024, hypoglycemia Farxiga: Per MTM note 08/10/24: Per discussion with collateral specialist, Farxiga is to be discontinued atthis time (as of 08/15/24). Prescriber's plan is to hold off on alternative agents at this time untiltheir next appointment. Medications reviewed for renal adjustments as of 11/01/2024. No changes immediately necessary. Medications that will be monitored: Duloxetine: CrCl less than 30 mL/minute: Avoid use Hydroxyzine: CrCl <= 50 mL/min: Dosage reduction may be necessary; a 50% dosage reduction is recommended. Gabapentin: CrCl 30 to 59 mL/minute: 400 to 1,400 mg/day PO daily in 2 evenly divided doses. CrCl 15 to 29 mL/minute: 200 to 700 mg/day PO once daily. Recent labs: Albumin/creatinine ratio: 480 mcg/mg Cr on 08/04/2021 (ordered 09/14/2024) Renal function (09/01/2024): eGFR: 32 mL/min/1.73 m2 SCr = 1.58 mg/dL CrCl (AdjBW)= 34 mL/min Lab Results Component Value Date ALT 11 07/06/2024 AST 29 07/06/2024 LDLCHOLCAL 34 09/01/2024 TRIG 241 (H) 09/01/2024 K 4.7 09/01/2024 NA 138 09/01/2024 CREATININE 1.58 (H) 09/01/2024 EGFR 32 09/01/2024 HGBA1C 11.4 (H) 09/01/2024 HGBA1C 11.6 (A) 09/01/2024 HGBA1C 7.2 (A) 03/06/2024 Recent blood pressure readings: BP Readings from Last 4 Encounters: 09/01/24 (!) 156/74 05/02/24 113/65 03/06/24 136/66 02/28/24 124/64 Pulse Readings from Last 4 Encounters: 09/01/24 69 05/02/24 50 03/06/24 63 02/28/24 68 Immunizations Due: COVID-19, RSV (age > 75 yo), Shingrix series (age > 50 yo), and Tetanus (q10 yrs) Unable to offer vaccines during today's televisit. Preferred Pharmacy: [facility] - [address] [id number] Assessment/Plan: Type 2 Diabetes Pharmacologic Therapy: Trulicity 1.5 mg subcutaneous once weekly Tresiba (200 units/mL) 64 units subcutaneously once daily Additional recommendations per ADA: On aspirin: Yes, for secondary prevention On statin: Yes (high intensity) On ACEI/ARB: No (collateral specialist declined due to elevated Scr 08/15/2024, will consider at FU) Dental Exam in the past 6 mo: No (referral sent 09/14/2024) Eye Exam in the past 12 mo: No (No Showed [facility] 10/24/2024) Goals of Therapy per the ADA Standards of Medical Care in Diabetes Achieve A1c of < 8.0% while also minimizing episodes of hypoglycemia (Age >65 yr with CHF, HTN, CKD, depression, incontinence, ADL impairment) Plan: CGM or BGM not available, but reports of baseline hyperglycemia and occassional Hi measurements suggest BG uncontrolled. Patient agrees to increase Trulicity to 3 mg subcutaneously once weekly. Patient counseled on the possibility of experiencing GI CARLA (nausea, vomiting, diarrhea, constipation) during titration. Patient reminded to avoid greasy/spicy foods, eater smaller more frequent meals, not eating beyond sensation of fullness , and prioritize nutrient dense food options. Patient verbalized understanding. Recommended the patient use a smaller plate as this may forcefully reduce serving sizes on a plate and patient may learn that overly served meals are not necessary to feel satisfied. Patient agrees to restart CGM as long as the cell phone lidya is not involved. MACHINE SEWER will apply a new sensor and initiate with reader, which was found. Patient agrees to CDTM FU in 4 weeks and PCP FU in 8 weeks. May consider continued titration of Tresiba and Trulicity as needed. PCP may consider repeat BMP to check if renal function back to baseline. Will consider discussing SGLT2 inhibitor with collateral specialist at that time. Education: Healthy diet and lifestyle. Discussed role of A1c monitoring, A1c and SMBG goals Reviewed risks of macro- and microvascular complications of uncontrolled DM. Reviewed signs, symptoms and treatments of hypoglycemia to which patient confirmed understanding. documented in this encounter Plan of Treatment Upcoming Encounters Date Type Department Care Team (Late st Contact Info) Description 01/17/2025 3:30 PM EDT Telemedicine [facility] [address] [place] [address] Raad Arias PharmD [address] [place] [phone] 02/15/2025 1:00 PM EDT Telemedicine [address] [phone] Amanda Watkins MD [address] [place] [phone] documented as of this encounter Visit Diagnoses Diagnosis Type 2 diabetes mellitus with hyperglycemia, with long-term current use of insulin ([facility])- Primary documented in this encounter Additional Health Concerns Assessment Noted Time PHQ-9 Depression Total Score: 0 09/01/19 25 1:18 PM EST documented as of this encounter Care Teams Drilling Inspector Relationship Specialty Start Date End Date Amanda Watkins MD [address] [place] [phone] PCP - General Family Medicine 04/07/19 Hiro Ram FNP [address] [place] [address] Nurse Practitioner Family Medicine 07/06/23 Raad Arias, PharmD [address] [place] [address] [phone] Pharmacist Internal Medicine 10/19/24 Ja A 08/10/24 documented as of this encounter
--- OUTSIDE RECORDS SUMMARY | 2024-12-23 02:44 | XMS_ITS | Encounter Summary ---
Author Organization [employer] Address [address] [facility] 7t [place] [address] Care Team Providers Care Nursing Teacher Name Role Phone Amanda Watkins MD Primary Care Provide r Hiro Ram Unavailable Unavailable Raad Arias PharmD Unavailable [phone] Reason for Visit * Reason Onset Date Comments Durable Medical Equipment 05/11/2024 Encounter Details Date Type Department Care Team (Late st Contact Info) Description 05/11/2024 Telephone [facility] [address] [place] [address] Amanda Watkins MD [address] [place] [address] Durable Medical Equipment Social History Tobacco Use [...] Miscellaneous Notes * Telephone Encounter - Francisco Moares - 05/12/2024 10:12 AM EDT Tc from [...] Info) Description 01/17/2025 3:30 PM EDT Telemedicine [facility] [address] [place] [address] Raad Arias, PharmD [address] [place] [address] 02/15/2025 1:00 PM EDT Telemedicine [facility] [address] [place] [address] Amanda Watkins MD [address] [place] [address] documented as of this encounter Visit Diagnoses Not on filedocumented in this encounter Additional Health Concerns Assessment Noted Time PHQ-9 Depression Total Score: 10 024 3:23 PM EDT documented as of this encounter Care Teams Nursing Teacher Relationship Specialty Start Date End Date Amanda Watkins MD [address] [place] [address] PCP - General Family Medicine 04/07/19 Hiro Ram FNP [address] [place] [address] Nurse Practitioner Family Medicine 07/06/23 Raad Arias, TheaD [address] [place] [address] Pharmacist Internal Medicine 10/19/24 [facility] 07/03/22 08/16/24 Ja A 08/10/24 documented as of this encounter
--- OUTSIDE RECORDS SUMMARY | 2024-12-23 02:44 | XMS_ITS | Encounter Summary ---
Author Organization [employer] Address 75 [facility] 7t [place] [address] Care Team Providers Care Tube Station Attendant Name Role Phone Amanda Watkins MD Primary Care Provide r Hiro Ram Unavailable Unavailable Raad Arias PharmD Unavailable [phone] Reason for Visit * Reason Comments Transition Of Care (Tcm) HDF unscheduled unable to LVM Encounter Details Date Type Department Care Team (Late st Contact Info) Description 12/21/2024 Patient Outreach [facility] [address] [place] [address] Amanda Watkins MD [address] [place] [address] Transition Of Care (Tcm) (HDF unscheduled unable to LVM ) Social History Tobacco Use Types Packs/Day [...] encounter Miscellaneous Notes * Significant Event - Nisha Tobin - 12/21/2024 8:25 AM EDT 12/21/24 0816 Hospital Discharges and Admission for [facility] Type of Visit Hospital Admission Date of Admission/Visit 12/06/24 Date of Discharge 12/08/24 [facility] Diagnosis Agitation, wide complex tachycardia, cellulitis of left leg, anxiety, hypothyroidism Disposition Discharged Home Follow-Up Actions Follow-Up Needed Provider appointment Follow-Up Outcome Left Voicemail Initial Contact Date 12/21/24 OLIVER Moreno placed outbound call to patient for HDF outreach. CC placing call to offer patient with an HDF appointment with provider. No answer at this time. Patient's name and were not confirmed. CC left detailed message educating patient on importance of following up with provider following an inpatient admission. Provided contact information requesting a call back in order to schedule theHDF appointment. Patient educated via voicemail on extended clinic hours on Mondays and Wednesdays,and Walk-In Urgent Care Located in [facility] of [facility]. Patient provided with after-hours line for [facility], , which offer night time triage service and option to transfer to director of business applications provider if needed. CC will request Discharge summaries to scan into chart. CC will place additional outreach call within 2-5 business days. documented in this encounter Plan of Treatment Upcoming Encounters Date Type Department Care Team (Late st Contact Info) Description 01/17/2025 3:30 PM EDT Telemedicine [address] [address] Raad Arias, Carlos [address] [place] [phone] 02/15/2025 1:00 PM EDT Telemedicine [address] [address] Amanda Watkins MD [address] [place] [phone] documented as of this encounter Visit Diagnoses Not on filedocumented in this encounter Additional Health Concerns Assessment Noted Time PHQ-9 Depression Total Score: 0 09/01/19 1:18 PM EST documented as of this encounter Care Teams Tube Station Attendant Relationship Specialty Start Date End Date Amanda Watkins MD [address] [place] [address] PCP - General Family Medicine 04/07/19 Hiro Ram FNP [address] [place] [address] Nurse Practitioner Family Medicine 07/06/23 Raad Arias, PharmD [address] [place] [address] Pharmacist Internal Medicine 10/19/24 Ja ROMEROA 08/10/24 documented as of this encounter
--- OUTSIDE RECORDS SUMMARY | 2024-12-23 02:44 | XMS_ITS | Encounter Summary ---
Author Organization [employer] Address 75 [facility] 7t [place] [address] Care Team Providers Care Automation Controls Expert Name Role Phone Amanda Watkins MD Primary Care Provide r Hiro Ram Unavailable Unavailable Raad Arias PharmD Unavailable [phone] Reason for Visit * Reason Onset Date Comments Durable Medical Equipment 07/26/2024 Encounter Details Date Type Department Care Team (Late st Contact Info) Description 07/26/2024 Telephone [facility] [address] [place] [address] Amanda Watkins MD [address] [place] [address] Durable Medical Equipment Social History Tobacco Use [...] Daughter calling in regards to DME stating [employer] supply stating they do not take pt's insurance and was advised to have equipment send to another supply pharmacy. DME: Wipes Bed Pads Adult Diapers documented in this encounter Plan of Treatment Upcoming Encounters Date Type Department Care Team (Late st Contact Info) Description 01/17/2025 3:30 PM EDT Telemedicine [facility] [address] [place] [address] Raad Arias, PharmD [address] [place] [phone] 02/15/2025 1:00 PM EDT Telemedicine [facility] [address] [place] [address] Amanda Watkins MD [address] [place] [address] documented as of this encounter Visit Diagnoses Not on filedocumented in this encounter Additional Health Concerns Assessment Noted Time PHQ-9 Depression Total Score: 10 024 3:23 PM EDT documented as of this encounter Care Teams Automation Controls Expert Relationship Specialty Start Date End Date Amanda Watkins MD [address] [place] [address] PCP - General Family Medicine 04/07/19 Hiro Ram FNP [address] [place] [address] Nurse Practitioner Family Medicine 07/06/23 Raad Arias, TheaD [address] [place] [phone] Pharmacist Internal Medicine 10/19/24 [facility] 07/03/22 08/16/24 Ja A 08/10/24 documented as of this encounter
--- OUTSIDE RECORDS SUMMARY | 2024-12-23 02:44 | XMS_ITS | Encounter Summary ---
Author Organization [email or web address] Address [address] [facility] 7t [place] [address] Care Team Providers Care Elevator Constructor Name Role Phone Amanda Watkins MD Primary Care Provide r Hiro Ram Unavailable Unavailable Raad Arias PharmD Unavailable [phone] Reason for Visit * Reason Onset Date Comments Hospital Follow-up 04/04/2024 Encounter Details Date Type Department Care Team (Late st Contact Info) Description 04/04/2024 Telephone [facility] [address] [place] [address] Amanda Watkins MD [address] [place] [address] Hospital Follow-up Social History Tobacco Use Types [...] pt requesting a HDF appt. Hospital: [facility] Date of admission: 03/18 Discharge date: 03/21 Diagnosed: Cellulitis documented in this encounter Plan of Treatment Upcoming Encounters Date Type Department Care Team (Late st Contact Info) Description 01/17/2025 3:30 PM EDT Telemedicine [facility] [address] [place] [address] Raad Arias, PharmD [address] [place] [phone] 02/15/2025 1:00 PM EDT Telemedicine [facility] [address] [place] [address] Amanda Watkins MD [address] [place] [phone] documented as of this encounter Visit Diagnoses Not on filedocumented in this encounter Additional Health Concerns Assessment Noted Time PHQ-9 Depression Total Score: 10 024 3:23 PM EDT documented as of this encounter Care Teams Elevator Constructor Relationship Specialty Start Date End Date Amanda Watkins MD [address] [place] [address] PCP - General Family Medicine 04/07/19 Hiro Ram FNP [address] [place] [address] Nurse Practitioner Family Medicine 07/06/23 Raad Arias, TheaD [address] [place] [phone] Pharmacist Internal Medicine 10/19/24 [facility] 07/03/22 08/16/24 Ja [facility] 08/10/24 documented as of this encounter
--- OUTSIDE RECORDS SUMMARY | 2024-12-23 02:44 | XMS_ITS | Encounter Summary ---
Author Organization [employer] Address 75 [facility] 7t [place] [address] Care Team Providers Care Truckman Name Role Phone Amanda Watkins MD Primary Care Provide r Hiro Ram Unavailable Unavailable Raad Arias PharmD Unavailable [phone] Encounter Details Date Type Department Care Team ([facility] st Contact Info) Description 09/06/2024 Orders Only [facility] [address] [place], [place] [phone] Waldemar Vaughn MD [address] [place] [address] Social History Tobacco Use Types Packs/Day Years [...] Info) Description 01/17/2025 3:30 PM EDT Telemedicine [address] [address] Raad Arias, PharmD [address] [place] [phone] 02/15/2025 1:00 PM EDT Telemedicine [address] [address] Amanda Watkins MD [address] [place] [phone] documented as of this encounter Visit Diagnoses Not on filedocumented in this encounter Additional Health Concerns Assessment Noted Time PHQ-9 Depression Total Score: 0 09/01/19 25 1:18 PM EST documented as of this encounter Care Teams Truckman Relationship Specialty Start Date End Date Amanda Watkins MD [address] [place] [address] PCP - General Family Medicine 04/07/19 Hiro Ram FNP [address] [place] [address] Nurse Practitioner Family Medicine 07/06/23 Raad Arias, PharmD [address] [place] [address] [place] [address] Pharmacist Internal Medicine 10/19/24 Ja [facility] 08/10/24 documented as of this encounter
--- OUTSIDE RECORDS SUMMARY | 2024-12-23 02:44 | XMS_ITS | Clinical Summary ---
Author Organization [employer] Address [address] [facility] 7t [place] [address] Care Team Providers Care Coin Machine Collector Name Role Phone Amanda Watkins MD Primary Care Provide r Hiro Ram Unavailable Unavailable Raad Arias PharmD Unavailable [phone] Allergies Active Allergy Reactions Criticality Noted Date [...] MG EC tabletIndications :Atrial fibrillation, unspecified type ([facility]) Take 1 tablet (81 mg) by mouth at bedtime. 90 tablet 3 024 Active Oyster Shell Calcium 500 MG tablet TAKE 1 TABLET BY MOUTH TWICE DAILY IN THE MORNING AND IN THE EVENING 180 tablet 1 024 Active FREESTYLE LITE test stripIndications: Type 2 diabetes mellitus with hyperglycemia, with long-term current use of insulin ([facility]) Use to test blood sugar 3 times daily 100 each 12 024 2024 Active Lancets miscIndications:T ype 2 diabetes mellitus with hyperglycemia, with long-term current use of insulin ([facility]) Use to test blood sugar 3 times daily 100 each 2 024 Active Blood Glucose Monitoring Suppl (FreeStyle Raven Lite) w/Device kitIndications:Ty pe 2 diabetes mellitus with hyperglycemia, with long-term current use of insulin ([facility]) Use to test blood sugar 3 times daily 1 kit 024 Active Continuous Glucose Sensor (FreeStyle Mickey 2 Sensor) miscIndications:T ype 2 diabetes mellitus with other specified complication, with long-term current use of insulin ([facility]) Apply 1 sensor every 14 days 2 each 2 024 Active Continuous Glucose Technical Writer (FreeStyle Mickey 2 Vowinckel) deviceIndications :Type 2 diabetes mellitus with other specified complication, with long-term current use of insulin ([facility]) Scan sensor every 8 hours 1 each 025 Active acetaminophen (Acetaminophen 8 Hour) 650 MG [...] EVENING, AND BEDTIME 90 capsule 3 Active melatonin 3 MG tablet Take 1 tablet (3 mg) by mouth at bedtime. 60 tablet 1 025 Active hydrOXYzine HCl (Atarax) 25 MG tablet Take 1 tablet (25 mg) by mouth every 8 (eight) hours if needed for anxiety. 90 tablet 025 Active Eliquis 5 MG tabletIndications :Atrial fibrillation, unspecified type ([facility]) TAKE 1 TABLET BY MOUTH TWICE DAILY IN THE MORNING AND AT BEDTIME 60 tablet 2 025 Active atorvastatin (Lipitor) 80 MG tablet TAKE 1 TABLET BY MOUTH EVERY EVENING 90 tablet 1 Active insulin degludec (Tresiba FlexTouch) 200 UNIT/ML injectionIndicati ons:Type 2 diabetes mellitus with hyperglycemia, with long-term current use of insulin ([facility]) Inject 64 units under the skin daily 18 mL 5 Active pen needle 32G x 4 mm miscIndications:T ype 2 diabetes mellitus with hyperglycemia, with long-term current use of insulin ([facility]) Use daily with insulin 100 each 025 2025 Active amLODIPine (Norvasc) 5 MG tablet TAKE 1 TABLET BY MOUTH EVERY MORNING 30 tablet 3 Active torsemide (Demadex) 20 MG tablet TAKE 1 TABLET BY MOUTH EVERY MORNING 30 tablet 3 Active traZODone (Desyrel) 150 MG tabletIndications :Recurrent major depressive episodes, mild ([facility]) Take 1 tablet (150 mg) by mouth at bedtime. 90 tablet 2 025 Active DULoxetine (Cymbalta) [address] capsule TAKE 1 CAPSULE BY MOUTH EVERY MORNING 30 capsule 025 Active Dulaglutide (Trulicity) 3 MG/0.5ML solution auto-injectorIndi cations:Type 2 diabetes mellitus with hyperglycemia, with long-term current use of insulin ([facility]) Inject 3 mg under the skin 1 (one) time per week. 2 mL 5 025 Active oxyCODONE-acetami nophen (Percocet) 5-325 MG tabletIndications :Chronic bilateral low back pain with bilateral sciatica Take 1 tablet by mouth every 6 (six) hours if needed for severe pain. 28 tablet 025 Active traZODone (Desyrel) 150 MG tabletIndications :Recurrent [...] day. 30 tablet 3 025 2024 Discontinued Nyamyc [id number] UNIT/GM powder Apply 1 Application. topically 2 times daily. 024 2024 Discontinued(M ed list cleanup (will not trigger notification to Pharmacy)) calamine-zinc oxide 8-8 % lotion APPLY TO THE AFFECTED AREA(S) TOPICALLY TWICE DAILY NEEDED FOR ITCHING 2024 Discontinued(M ed list cleanup (will not trigger notification to Pharmacy)) loratadine (Claritin) 10 MG tablet Take 1 tablet by mouth Once per day. 2024 Discontinued(M ed list cleanup (will not trigger notification to Pharmacy)) Lokelma 10 g packet DISSOLVE 1 PACKET DIRECTED AND TAKE BY MOUTH EVERY WEDNESDAY, WEDNESDAY, AND Wednesday Discontinued(M ed list cleanup (will not trigger notification to Pharmacy)) DULoxetine (Cymbalta) [address] capsule Take 1 capsule (20 mg) by mouth Once per day. 30 capsule 025 2024 Discontinued Dulaglutide (Trulicity) 1.5 MG/0.5ML solution auto-injectorIndi cations:Type 2 diabetes mellitus with hyperglycemia, with long-term current use of insulin (CMS/HCC) Inject 1.5 mg under the skin 1 (one) time per week. 2 mL 5 025 2024 Discontinued(D ose adjustment) oxyCODONE-acetami nophen (Percocet) 5-325 MG tabletIndications :Chronic bilateral low back pain with bilateral sciatica TAKE 1 TABLET BY MOUTH EVERY 6 HOURS NEEDED FOR SEVERE PAIN 28 tablet 025 2024 Discontinued(R eorder (will not trigger notification to Pharmacy)) oxyCODONE-acetami nophen (Percocet) 5-325 MG tabletIndications :Chronic bilateral low back pain with bilateral sciatica Take 1 tablet by mouth every 6 (six) hours if needed for severe pain. 28 tablet 025 2024 Discontinued(R eorder (will [...] Assessment & Plan (09/14/2024 6:46 PM EST): Insurance Agency Manager referral done today I advised not to [...] medications every day I advised low-sodium diet Insurance Agency Manager referral done today I advised to monitor [...] retiring, patient will be transferred to new [facility] psychiatric provider. Patient is aware that appointments will be via televisit. Any issues or concerns contact [facility]. All her questions were answered and [...] advise low-sodium diet I advised weight reduction Insurance Agency Manager referral done Assessment & Plan (12/06/2023 2:12 [...] excersise -patient will be refer to sand slinger operator - Continue current medications, I can [...] Encounters Date Type Department Care Team Description 12/22/2024 Orders Only [facility] [address] [place] [phone] Amanda Watkins MD 12/22/2024 Refill [facility] [address] [place] [address] Amanda Watkins MD Chronic bilateral low back pain with bilateral sciatica 12/21/2024 Patient Outreach [facility] [address] [place] [address] Amanda Watkins MD Transition Of Care (Tcm) (HDF unscheduled unable to LVM ) 12/20/2024 3:30 PM EDT Telemedicine [facility] [address] [place] [address] Raad Arias, Carlos Type 2 diabetes mellitus with hyperglycemia, with long-term current use of insulin (CMS/HCC) (Primary Dx) 12/20/2024 Telephone [facility] [address] [place] [address] Sia Leon PharmD 12/20/2024 Telephone [facility] [address] [place] [address] Amanda Watkins MD Appointment Request 12/20/2024 Telephone [facility] [address] [place] [address] Amanda Watkins MD Housing Form (I called the patient to get more information, regarding a reasonable accommodation request, from [employer]. Her daughter Nai answered, and stated that the patient is requesting a two bedroom apartment. 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 She would like for them to have a place to rest. ) 12/18/2024 Telephone [facility] [address] [place] [address] Amanda Watkins MD Durable Medical Equipment 12/13/2024 Refill [facility] [address] [place] [address] Amanda Watkins MD 11/28/2024 Refill [facility] [address] [place] [address] Amanda Watkins MD Chronic bilateral low back pain with bilateral sciatica 11/25/2024 Refill [facility] [address] [place] [address] Amanda Watkins MD Recurrent major depressive episodes, mild (CMS/HCC) 11/24/2024 Telephone [facility] [address] [place] [address] Amanda Watkins MD Chart Prep 11/10/2024 Refill [facility] [address] [place] [address] Amanda Watkins MD Chronic bilateral low back pain with bilateral sciatica 11/06/2024 Telephone [facility] [address] [place] [address] Amanda Watkins MD Durable Medical Equipment 11/01/2024 2:00 PM EDT Telemedicine [facility] [address] [place] [address] Raad Arias, TheaD Type 2 diabetes mellitus with hyperglycemia, with long-term current use of insulin ([facility]) (Primary Dx) 11/01/2024 Travel 11/01/2024 Refill [facility] [address] [place] [address] Amanda Watkins MD 10/27/2024 Refill [facility] [address] [place] [address] Amanda Watkins MD Atrial fibrillation, unspecified type ([facility]) 10/26/2024 Refill [facility] [address] [place] [address] Amanda Watkins MD Chronic bilateral low back pain with bilateral sciatica (Primary Dx) 10/19/2024 Refill [facility] [address] [place] [address] Amanda Watkins MD 10/18/2024 Travel 10/16/2024 Refill [facility] [address] [place] [address] Amanda Watkins MD Chronic bilateral low back pain with bilateral sciatica 10/11/2024 Telephone [facility] [address] [place] [address] Amanda Watkins MD Home Care Delivered (Adult size brief, large disposable underpad, wipes icon softpack) 10/10/2024 Refill [facility] [address] [place] [address] Amanda Watkins MD 10/10/2024 Refill [facility] [address] [place] [address] Amanda Watkins MD 10/04/2024 Refill [facility] [address] [place] [address] Ann Kulkarni, DO 10/04/2024 Refill [facility] [address] [place] [address] Amanda Watkins MD Epigastric pain; Type 2 diabetes mellitus with other specified complication, with long-term current use of insulin ([facility]) 09/27/2024 Refill [facility] [address] [place] [address] Ann Kulkarni, DO 09/26/2024 Refill [facility] [address] [place], [place] [phone] Amanda Watkins MD Chronic bilateral low back pain with bilateral sciatica from Last 3 Months Immunizations Immunization Administration Dates Next Due Hep B, adult [...] Info) Description 01/17/2025 3:30 PM EDT Telemedicine [facility] [address] [place] [address] Raad Arias, PharmD [address] [place] [address] 02/15/2025 1:00 PM EDT Telemedicine [facility] [address] [place] [address] Amanda Watkins MD [address] [place], [place] [phone] Health Maintenance Due Date Last Done Comments [...] patient's age to complete this topic Meningococcal B Vaccine Aged Out No l onger eligible based on patient's age to complete [...] hyperglycemia, with long-term current use of insulin ([facility]) ALBUMIN, RANDOM URINE W/CREATININE Routine 08/04/2021 10:15 AM EST from Last 3 Months or Most Recently Relevant to Health Maintenance Results * (ABNORMAL) Lipid Panel, Standard (09/01/2024 2:09 PM EST) Triglycerides 241(H) <150 mg/dL [facility] Comment:Desirable Triglyceri de: less than 150 mg/dLBorderline High Triglyceride 150-199 mg/dLHigh Triglyceride: 200-499 mg/dLVery High Triglyceride: greater than or equal to 5OO mg/dL Cholesterol 107 <200 mg/dL [facility] Comment:Desirable Cholestero l: less than 200 mg/dLBorderline High Cholesterol: 200-239 mg/dLHigh Cholesterol: greater than 239 mg/dL LDL Cholesterol Calculated 34 <100 mg/dL [facility] Comment:Desirable LDL: less than 100 mg/dLNear Optimal/Above Optimal LDL: 110- 129 mg/dLBorderline High LDL: 130-159 mg/dLHigh LDL: 160-189 mg/dLVery High LDL: greater than or equal to 190 mg/dL HDL Cholesterol 25(L) >40 mg/dL [facility] Comment:Desirable HDL: great er than 40 mg/dL Note: This HDL assay may give artificially low results in patients with liver disease. 09/01/2024 2:09 PM EST 09/01/2024 4:09 PM EST Amanda Myers MD LAB BLOOD ORDERABLES Final Result Performing Organization Address City/State/[facility] Co de Phone Number [facility] [address] [place] [phone] * (ABNORMAL) POCT HGB A1C (09/01/2024 1:24 PM EST) Pathologist [facility] Hemoglobin A1C 11.6(A) 4.0 - 6.0 % QC Media Lot # [id number] Lot# Expiration Date Blood 09/01/2024 1:24 PM EST Amanda Myers MD POINT OF CARE TEST EN TER/EDIT ORDERABLES Final Result * (ABNORMAL) ALBUMIN, RANDOM URINE W/CREATININE (08/04/2021 10:15 AM EST) Microalbumin Urine 66.2 See Note: mg/dL [facility] Comment: Reference Range: ?? Reference [...] DO LAB URINE ORDERABLES Final R esult [facility] [address] from Last 3 Months or Most Recently Relevant to Health Maintenance Insurance [address] [place] [phone] FORMERLY [facility] [employer] (HMO D-SNP) [facility] Care Teams Coin Machine Collector Relationship Specialty Start Date End Date Amanda Watkins MD [address] [place] [phone] PCP - General Family Medicine 04/07/19 Hiro Ram FNP [address] [place] [address] Nurse Practitioner Family Medicine 07/06/23 Raad Arias, TheaD [address] [place] [phone] Pharmacist Internal Medicine 10[facility]
--- OUTSIDE RECORDS SUMMARY | 2024-12-23 02:44 | XMS_ITS | Encounter Summary ---
Author Organization [employer] Address [address] [facility] 7t [place] [address] Care Team Providers Care Materials Engineer Name Role Phone Amanda Watkins MD Primary Care Provide r Hiro Ram Unavailable Unavailable Raad Arias PharmD Unavailable [phone] Reason for Visit * Reason Comments Med Refill Encounter Details Date Type Department Care Team ([facility] st Contact Info) Description 07/05/2024 Refill [facility] [address] [place] [address] Amanda Wtakins MD [address] [place] [address] Social History Tobacco Use Types Packs/Day Years [...] Info) Description 01/17/2025 3:30 PM EDT Telemedicine [facility] [address] [place] [address] Raad Arias, PharmD [address] [place] [phone] 02/15/2025 1:00 PM EDT Telemedicine [facility] [address] [place] [address] Amanda Watkins MD [address] [place] [address] documented as of this encounter Visit Diagnoses Not on filedocumented in this encounter Additional Health Concerns Assessment Noted Time PHQ-9 Depression Total Score: 10 024 3:23 PM EDT documented as of this encounter Care Teams Materials Engineer Relationship Specialty Start Date End Date Amanda Watkins MD [address] [place] [address] PCP - General Family Medicine 04/07/19 Hiro Ram FNP [address] [place] [address] Nurse Practitioner Family Medicine 07/06/23 Raad Arias, PharmD [address] [place] [address] [place] [phone] Pharmacist Internal Medicine 10/19/24 [facility] 07/03/22 08/16/24 Ja [facility] 08/10/24 documented as of this encounter
--- OUTSIDE RECORDS SUMMARY | 2024-12-23 02:44 | XMS_ITS | Encounter Summary ---
Author Organization [employer] Address [address] [facility] 7t [place] [address] Care Team Providers Care Hat Blocking Machine Operator Name Role Phone Amanda Watkins MD Primary Care Provide r Hiro Ram Unavailable Unavailable Raad Arias PharmD Unavailable [phone] Encounter Details Date Type Department Care Team (Late st Contact Info) Description 12/22/2024 Orders Only [facility] [address] [place] [address] Amanda Watkins MD [address] [place] [address] Social History Tobacco Use Types Packs/Day Years [...] Info) Description 01/17/2025 3:30 PM EDT Telemedicine [address] [address] Raad Arias, PharmD [address] [place] [address] 02/15/2025 1:00 PM EDT Telemedicine [address] [address] Amanda Watkins MD [address] [place] [address] documented as of this encounter Visit Diagnoses Not on filedocumented in this encounter Additional Health Concerns Assessment Noted Time PHQ-9 Depression Total Score: 0 09/01/19 25 1:18 PM EST documented as of this encounter Care Teams Hat Blocking Machine Operator Relationship Specialty Start Date End Date Amanda Watkins MD [address] [place] [address] PCP - General Family Medicine 04/07/19 Hiro Ram FNP [address] [place] [address] Nurse Practitioner Family Medicine 07/06/23 Raad Arias, PharmD [address] [facility] [place] [address] Pharmacist Internal Medicine 10/19/24 Ja [facility] 08/10/24 documented as of this encounter
--- OUTSIDE RECORDS SUMMARY | 2024-12-23 02:44 | XMS_ITS | Encounter Summary ---
Author Organization [employer] Address 75 [facility] 7t [place] [address] Care Team Providers Care Automobile Repossessor Name Role Phone Amanda Watkins MD Primary Care Provide r Hiro Ram Unavailable Unavailable Raad Arias PharmD Unavailable [phone] Reason for Visit * Reason Onset Date Comments Hospital Follow-up 03/23/2024 Encounter Details Date Type Department Care Team (Late st Contact Info) Description 03/23/2024 Telephone [facility] [address] [place] [address] Amanda Watkins MD [address] [place] [address] Hospital Follow-up Social History Tobacco Use Types [...] from pt requesting a HDF appt. Hospital: [facility] Date of admission: 03/18 Discharge date: 03/21 Diagnosed: Cellulitis documented in this encounter Plan of Treatment Upcoming Encounters Date Type Department Care Team (Late st Contact Info) Description 01/17/2025 3:30 PM EDT Telemedicine [facility] [address] [place] [address] Raad Arias, PharmD [address] [place] [address] 02/15/2025 1:00 PM EDT Telemedicine [facility] [address] [place] [address] Amanda Watkins MD [address] [place] [phone] documented as of this encounter Visit Diagnoses Not on filedocumented in this encounter Additional Health Concerns Assessment Noted Time PHQ-9 Depression Total Score: 10 024 3:23 PM EDT documented as of this encounter Care Teams Automobile Repossessor Relationship Specialty Start Date End Date Amanda Watkins MD [address] [place] [phone] PCP - General Family Medicine 04/07/19 Hiro Ram FNP [address] [place] [address] Nurse Practitioner Family Medicine 07/06/23 Raad Arias, TheaD [address] [place] [phone] Pharmacist Internal Medicine 10/19/24 [facility] 07/03/22 08/16/24 [facility] 08/10/24 documented as of this encounter
[2024-12-23 03:07] VITALS: BP 114/35; PULSE 59; RESP 20; TEMP 36.7; O2SAT 97
[2024-12-23] MEDS: LORazepam 0.5 MG TABLET PO ×2 (03:08→06:03)
[2024-12-23] MEDS: Acetaminophen 325 MG TABLET 650 MG PO (03:08)
--- NOTE | 2024-12-23 03:55 | PC.NURSE ---
pt incontinent of urine, pt's brought her own briefs from home, pt cleaned up and new brief applied
[2024-12-23 04:11] VITALS: BP 110/38; PULSE 56; RESP 16; TEMP 36.3; O2SAT 97
--- NOTE | 2024-12-23 05:07 | PC.NURSE ---
pt awake and yelling out again do to her pain, md aware-verbal order to rashida wrap the right knee
[2024-12-23 06:02] VITALS: BP 130/34; PULSE 55; RESP 20; O2SAT 98
--- NOTE | 2024-12-23 06:06 | PC.NURSE ---
called the pt's house to make some that someone would be home when the pt arrived, spoke with daughter in law and there will be family at the house when the patient arrives
[2024-12-23 07:38] VITALS: BP 130/34; PULSE 55; RESP 20; TEMP 36.6; O2SAT 98
== END 2024-12-23 07:39 | disposition home or self-care (01) ==
PROVIDERS: Emergency Provider Internal Medicine
DX: F41.9 Anxiety disorder, unspecified (principal); M25.561 Pain in right knee
CPT/HCPCS: 99283; 99284

== ENCOUNTER 2025-01-05 08:07 | Emergency (ER) | payer OTHER, SELFPAY ==
--- NOTE | ~2025-01-05 | XR_ITS ---
EXAMINATION: XR ELBOW, RIGHT CLINICAL INFORMATION: pain COMPARISON: None available. TECHNIQUE: AP, lateral, and oblique views of the right elbow. FINDINGS: No fracture or malalignment. No joint effusion evident. 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 Minimal spurring of the condyles. No soft tissue abnormality. XR/XR elbow RT 2V IMPRESSION: No acute findings of the right elbow. Electronically signed by: Dilip Hammer MD 01/05/2025 09:54 AM EDT
--- NOTE | ~2025-01-05 | XR_ITS ---
EXAMINATION: XR SHOULDER, RIGHT XR HUMERUS, RIGHT CLINICAL INFORMATION: pain COMPARISON: None available. TECHNIQUE: AP and Y view of the right humerus and shoulder. FINDINGS: Limited due to limited views and positioning. No fracture, dislocation, or suspicious bone lesion. No malalignment. Remainder of the soft tissue and bony structures appear normal. XR/XR humerus RT IMPRESSION: No acute findings right shoulder and right humerus. Electronically signed by: Dilip Hammer MD 01/05/2025 09:56 AM EDT
--- NOTE | ~2025-01-05 | CT_ITS ---
EXAMINATION: CT SHOULDER WITHOUT CONTRAST, RIGHT CLINICAL INFORMATION: ? Dislocation. COMPARISON: None available. TECHNIQUE: Spiral CT imaging of the right shoulder performed in axial plane without contrast. Multiplanar reformatted images were constructed from the axial data set. This CT examination was performed using dose optimization techniques as appropriate, variously including the following: *Automated exposure control *Adjustment of mA and/or kV according to patient size (this includes techniques or standardized protocols for targeted exams where dose is matched to indication/reason for exam; i.e. extremities or head) *Use of iterative reconstruction technique FINDINGS: There is motion degradation, limiting sensitivity. There is no fracture or dislocation. There is normal alignment of the glenohumeral joint with moderate degenerative arthritis present. There are subchondral cystic changes with sclerosis and mild remodeling of the posterior inferior glenoid. Small to moderate-sized undersurface humeral head spurs. There is a prominent glenohumeral joint effusion. There is remodeling of the undersurface of the acromion suggesting full-thickness rotator cuff tear. Mild remodeling of the undersurface of the AC joint also noted. There is calcific tendinopathy of the supraspinatus and infraspinatus tendons. There is likely calcific bursitis in the subacromial/subdeltoid bursa. The right lung appears clear. There is motion degradation. CT/CT shoulder RT wo IV con IMPRESSION: Motion degraded exam, limiting sensitivity. 1. There is a large glenohumeral joint effusion. 2. There is moderate degenerative arthritis in the glenohumeral joint. There is no dislocation. There is no fracture. 3. Undersurface remodeling of the acromion and AC joint, suggesting chronic thickness rotator cuff tearing. 4. Calcific tendinopathy of the intact supraspinatus and infraspinatus tendons. 5. There is likely calcific bursitis of the subacromial/subdeltoid bursa as well. Electronically signed by: Dilip Hammer MD 01/05/2025 10:57 AM EDT
--- NOTE | ~2025-01-05 | XR_ITS ---
EXAMINATION: XR SHOULDER, RIGHT XR HUMERUS, RIGHT CLINICAL INFORMATION: pain COMPARISON: None available. TECHNIQUE: AP and Y view of the right humerus and shoulder. FINDINGS: Limited due to limited views and positioning. No fracture, dislocation, or suspicious bone lesion. No malalignment. Remainder of the soft tissue and bony structures appear normal. XR/XR shoulder RT min 2V IMPRESSION: No acute findings right shoulder and right humerus. Electronically signed by: Dilip Hammer MD 01/05/2025 09:56 AM EDT
[2025-01-05 08:11] VITALS: BP 159/71; PULSE 68
[2025-01-05 08:16] VITALS: BP 125/74; PULSE 69; RESP 20; TEMP 36.9; O2SAT 99; BMI 48.5
--- OUTSIDE RECORDS SUMMARY | 2025-01-05 08:38 | XMS_ITS | Data Portability ---
Author Organization [facility] [employer] [facility], Main Office Address [address] [place] [address] Care Team Providers Care Media Associate Name Role Phone EUGENIA FLOWER - 2ND FLOOR OTHER Assessment Encounter Date Assessment Date Assessment LastModified by Organization Details LastModified Time 04/08/2024 04/08/202404/05 na 139 k 5 cre 1.27 wbc 6.8 hgn 9.7 hct 31.1 [email or web address] Not available 04/08/2024 12:35:37 04/11/2024 04/11/202404/05 na 139 k 5 cre 1.27 wbc 6.8 hgn 9.7 hct 31.1 [email or web address] Not available 04/11/2024 21:51:17 04/18/2024 04/18/202404/05 na 139 k 5 cre 1.27 wbc 6.8 hgn 9.7 hct 31.1 [email or web address] Not available 04/18/2024 13:49:59 04/19/2024 04/19/202404/05 na 139 k 5 cre 1.27 wbc 6.8 hgn 9.7 hct 31.1 this [employer] spent >30 minutes with assessment, dx, referral, [...] Address Organization Details Recorded Time Depressive disorder 67563320 Active 2023 HOLDEN LAURENT [address], [address], [place], [address], [facility] 4 12:24:02 Atrial fibrillation 53736717 Active 2023 HOLDEN LAURENT [address], [address], [place], [address], [facility] 4 12:24:20 Obstructive sleep apnea syndrome 50252876 Active 2023 HOLDEN LAURENT [address], [address], [place], [address], [facility] 4 12:24:31 Asthma 519841997 Active 2023 HOLDEN LAURENT [address], [place], [address], [facility] 4 12:24:36 Hypertensive disorder 06812678 Active 2023 HOLDEN LAURENT [address], [place], [address], [facility] 4 12:24:41 Hyperlipidemia 40071119 Active 2023 HOLDEN LAURENT [address], [address], [place], [address], [facility] 4 12:24:47 Retention of urine 401064157 Active 2023 HOLDEN LAURENT [address], [place], [address], [facility] 4 12:24:53 Opioid dependence 38410618 Active 2023 HOLDEN LAURENT [address], [place], [address], [facility] 4 12:25:08 Diabetes mellitus 94914693 Active 2023 HOLDEN LAURENT [address], [place], [address], [facility] 4 12:25:14 Congestive heart failure 27163080 Active 2023 HOLDEN LAURENT [address], [place], [address], [facility] [employer] [facility] 4 12:25:21 Gastroesophage al reflux disease 794145504 Active 2023 REBECAHOLDEN FELTON [address], [address], [place], [address], [facility] 4 12:25:30 Hypothyroidism 46859497 Active 2023 HOLEDN LAURENT [address], [address], [place], [address], [facility] [employer] [facility] 4 12:25:37 Cellulitis 944963956 Active 2023 HOLDEN LAURENT [address], [place], [address], [facility] [employer] [facility] 4 12:26:22 Arterial insufficiency 271472939 Active 2023 HOLDEN LAURENT [address], [place], [address], [facility] [employer] [facility] 4 12:26:37 Problem Notes None recorded. Medical Equipment None Reported. Allergies Allergen ID Allergen Name Allergen Category Reaction Reaction Severity Criticality Documentation Date Start Date Code Code System Note Provider Name and Address Organization Details Recorded Time 97645 codeine medicatio n Not available Not available Not available 04/08/2024 2670 RxNorm HOLDEN LAURENT [address], [place], [address], [facility] [employer] [facility] 4 12:38:31 Medications Name Sig Start Date Stop Date [...] Updated DateTime 4 152.4 cm 48.5 kg/m2 273163. 27 g 53 /min 18 /min 98.6 [degF] 98 % 98 % 149 mm[Hg] 77 mm[Hg] Genny Aguilar MD [address], [place], [address], [employer] 4 21:34:16 Date Recorded Body height Heart rate Respiratory rate Body temperature Oxygen saturation Oxygen saturation in Arterial blood by Pulse oximetry Systolic blood pressure Diastolic blood pressure Provider Name and Address Organization Details Last Updated DateTime 4 152.4 cm 54 /min 18 /min 98.1 [degF] 96 % 96 % 175 mm[Hg] 90 mm[Hg] IBETH PRICE NP [address], [place], [address], [employer] 4 13:49:23 Date Recorded Body height Body mass index (BMI) Body weight Heart rate Respiratory rate Body temperature Oxygen saturation Oxygen saturation in Arterial blood by Pulse oximetry Systolic blood pressure Diastolic blood pressure Provider Name and Address Organization Details Last Updated DateTime 4 152.4 cm 48.4 kg/m2 045471. 91 g 68 /min 18 /min 98.1 [degF] 96 % 96 % 132 mm[Hg] 72 mm[Hg] Raiza Madsen NP [address], [place], [address], [employer] 4 08:19:33 Social History Question Answer Notes LastModified by Organizat ion Details LastModified Time Tobacco Smoking Status Never Smoker Genny Aguilar MD [address], [place], [address], [employer] 04/11/2024 21:50:08 Do You Have An Advance Directive? Yes Information not available 04/11/2024 What Is Your Code Status? Full Code Information not available 04/11/2024 Where Do You Live? Apartment With Sister, Elevator Access. Information not available 04/11/2024 Legal Guardian? No Information not available 04/11/2024 Do You Have A Medical Power Of Dental Office Receptionist? Yes Information not available 04/11/2024 What Was The Date Of Your Most Recent Tobacco Screening? 04/11/2024 Information not available 04/11/2024 Do You Have An Out Of Hospital DNR? No Information not available 04/11/2024 Has Tobacco Cessation Counseling Been Provided? No N/a As Pt Is Non-smoker Information not available 04/11/2024 Sex: Unknown Functional Status Question Answer Note LastModified by Organizat ion Details LastModified Time Do you use any illicit or recreational drugs? No Information not available 04/11/2024 Do you or have you ever used any other forms of tobacco or nicotine? No Information not available 04/11/2024 What is your level of alcohol consumption? None Information not available 04/11/2024 Mental Status None recorded. Family History Nothing Reported Notes:n/c Medical History No medical history recorded. Gynecological HistoryNo gynecological history recorded. Obstetrics History GPAL:G 0 P 0 0 0 0 Past Encounters Encounter ID Performer Location Encounter Start Date Encounter Closed Date Diagnosis/Indication Diagnosis SNOMED-CT Code Diagnosis ICD10 Code Diagnosis Note [id number] HOLDEN LAURENT [address] [address] 04/08/2024 12:12:39 04/13/2024 15:07:34 Cellulitis 373290208 L03.90 completed antbx for LE cellulitis in ED = did not feel it was recurrence of an acute infectionh /o chronic lymphedema -monitor ss of infection- bacitracin topical to BL legs daily-oxyc odone 5 mg q6h prn for pain Arterial insufficiency 294400074 I77.1 -f/up with vascular per recs needs to be arranged-s ee above Retention of urine 06529 4002 R33.9 unable to urinate since coming from [facility] to [facility]-w ill order PVR, SC for PVR >400 cc Atrial fibrillation 4943 6004 I48.91 carrying dx-amiodar one 200 mg daily-eliq uis 5 mg bid-monito r HR and bleeding Hypertensive disorder 38 612649 I10 carrying dx-amlodip ine 10 mg daily-leonardo tor BP Depressive disorder 3548 9007 F32.A carrying dx-duloxet ine 20 mg daily-paxi l 40 mg daily-leonardo tor mood and affect-psy ch eval prn Congestive heart failure 52681058 I50.9 carrying dxnot on diuretics- metoprolol 50 mg daily-farx iga 10 mg daily- fluid status closely-da sacha weights Diabetes mellitus 594481 09 E11.9 carrying dxjardianc e was given once in hospital, dont see it on her home med list or dc med list = asked nursing to ask dtr-lantus 65 units HS-monitor accuchecks TID Hypothyroidism 31832630 E03.9 carrying dx-synthro id 50 mcg po in am-TSH/T4 prn Hyperlipidemia 21607223 E78.5 carrying dx-lipitor 80 mg daily Gastroesop hageal reflux disease 987027157 K21.9 carrying dx-omepraz ole 40 mg po daily Obstructiv e sleep apnea syndrome 27659572 G47.33 intermitte nt CPAP use at home Opioid dependence 426374 00 F11.20 -monitor needed support in community- on oxycodone for leg pain = monitor usage and wean as tolerated Dermal mycosis 29439444 B36.9 yeast infection of groin-nyst atin TID x 7 days Anxiety 61684720 F41.9 -hydroxyzi ne 25 mg q8h prn for anxiety [id number] Genny Aguilar MD [address] [address] 04/11/2024 20:47:59 04/17/2024 10:31:08 Cellulitis 082703554 L03.116 Resolved, now with healing wounds.Is getting very itchy, has hydroxyzin e ordered 25 mg q 8 hrs prn, but pt requests benadryl.W ill start diphenhydr amine 25 mg q 4 hrs prn.Contin ue bacitracin topical to BL legs qd and oxycodone 5 mg q 6 hrs prn for pain.Monit or for healing. Arterial insufficiency 913562459 I77.1 F/U with vascular as planned.Mo rubén ramos n. Retention of urine 37876 4002 R33.8 Improved, continue to monitor. Atrial fibrillation 4943 6004 I48.0 Rate in good control on amiodarone 200 mg daily and metoprolol 50 mg daily.Cont inue eliquis 5 mg BID for AC.Monitor HR and bleeding risk. Hypertensive disorder 38 949111 I10 Fair control on amlodipine 10 mg daily and metoprolol 50 mg daily.Leonardo tor BP and labs. Depressive disorder 3548 9007 F33.8 Mood good tonight, aside form wanting to go home.Nicanor nue duloxetine 20 mg daily, paroxetine 40 mg daily, trazadone 50 mg at bedtime, and melatonin 5 mg at bedtime.Anthony [place] moodPsych consult prn Congestive heart failure 62003893 I50.32 Appears euvolemic. Continue meds as above and Farxiga 10 mg daily.Leonardo tor resp. status, fluid status, wts and labs. Diabetes mellitus 809333 09 E11.9 In good control since here.Nicanor nue lantus 65 units daily and Farxiga 10 mg daily.Leonardo tor accuchecks TID Hypothyroidism 61242889 E03.8 Continue levothyrox ine 50 mcg dailyMonit or TSH prn. Hyperlipidemia 03810240 E78.49 Continue atorvastat in 80 mg dailyMonit or labs as outpt. Gastroesop hageal reflux disease 485142026 K21.9 No current sxs.Contin ue omeprazole 40 mg dailyMonit or GI sxs. Obstructiv e sleep apnea syndrome 41618696 G47.33 Continue CPAP with sleep.F/U prn. Opioid dependence 999302 00 F11.20 On oxycodone chronicall y.Monitor use and f/u with pcp as planned. Candidiasis of vagina 72 638658 B37.31 Not improving with nystatin.W ill start diflucan 150 mg x 1 and repeat in 1 wk. [id number] IBETH PRICE NP [address] [address] 04/18/2024 08:27:20 04/19/2024 14:02:05 Cellulitis 244521512 L03.116 Improved. now with healing woundsdiph enhydramin [...] BMP x 1 in am Arterial insufficiency 090506722 I77.1 F/U with vascular as planned.Anthony merazRefer to [facility] for outpt. mgmt. upon d/c. Retention of urine 39271 4002 R33.8 Improved, continue to monitor. Atrial fibrillation 4943 6004 I48.0 Rate in good control on amiodarone 200 mg daily and metoprolol 50 mg daily.Cont inue eliquis 5 mg BID for AC.Monitor HR and bleeding risk. Hypertensive disorder 38 762657 I10 Fair control on amlodipine 10 mg [...] [place] moodPsych consult prn Congestive heart failure 71287727 I50.32 Appears euvolemic. Continue meds as above and Farxiga 10 mg daily.Leonardo tor resp. status, fluid status, wts and labs. Diabetes mellitus 648841 09 E11.9 In fair control since here.Nicanor nue lantus 65 units daily and Farxiga 10 mg daily.Leonardo tor accuchecks TID Hypothyroidism 47490423 E03.8 Continue levothyrox ine 50 mcg dailyMonit or TSH prn. Hyperlipidemia 16355657 E78.49 Continue atorvastat in 80 mg dailyMonit or labs as outpt. Gastroesop hageal reflux disease 088536052 K21.9 No current sxs.Contin ue omeprazole 40 mg dailyMonit or GI sxs. Obstructiv e sleep apnea syndrome 83954547 G47.33 Continue CPAP with sleep.F/U prn. Opioid dependence 335545 00 F11.20 On oxycodone chronicall y.Monitor use and f/u with pcp as planned. Candidiasis of vagina 72 860256 B37.31 Not improving with nystatin.D iflucan 150 mg x 1 given, to repeat in 1 wk. [id number] Raiza Madsen, OSITO [address] [place] [address] 04/19/2024 08:18:47 04/20/2024 13:31:13 Cellulitis 338987179 L03.116 resolved with abx in hospitalno w [...] pcp, and wound clinica oupt Arterial insufficiency 857738604 I77.1 F/U with vascular as planned.Re marichuy to [facility] for outpt. mgmt. upon d/c. (referral given)vna services outpt with pcp to follow outpt with wound clinic Retention of urine 96949 4002 R33.8 Improved, continue to monitor. Atrial fibrillation 4943 6004 I48.0 Rate in good control on amiodarone 200 mg daily and metoprolol 50 mg daily.Cont inue eliquis 5 mg BID for AC.Monitor outpt with pcp and cardiology outpt Hypertensive disorder 38 128989 I10 hospital dc'd losartan 50 mg po [...] outptPsych consult prn outpt Congestive heart failure 95250122 I50.32 Appears euvolemic. Continue meds as above and Farxiga 10 mg daily.Leonardo tor outpt with pcp Diabetes mellitus 871216 09 E11.9 In fair control since here. 100-200s? if higher 200s related to infectiona lso glipizide and metformin was dc in hosp for ckd, monitor for need to add with pcp outptConti nuelantus 65 units dailyFarxi ga 10 mg daily.Leonardo tor accuchecks TID at home and bring log to pcp on 04/26/24. Hypothyroidism 29413697 E03.8 Continuele vothyroxin e 50 mcg dailyMonit or TSH prn outpt withpcp Hyperlipidemia 90518420 E78.49 Continue atorvastat in 80 mg dailyMonit or labs as outpt. Gastroesop hageal reflux disease 732821602 K21.9 No current sxs.Contin ueomeprazo le 40 mg dailyMonit or GI sxs. outpt with pcp Obstructiv e sleep apnea syndrome 34366434 G47.33 Continue CPAP with sleep.F/U prn outpt prn Opioid dependence 333660 00 F11.20 On oxycodone chronicall y.will cont on home dose and since on chronicall y will not send with any additional oxycodoneM onitor use and f/u with pcp as planned outpt Candidiasis of vagina 72 846220 B37.31 Not improving with nystatin.D iflucan 150 mg x 1 given at rehabmonit or with pcp outpt Chronic ki dney disease 737131907 N18.9 ckd per hosp paperwork with meds adjusted:g lipizide, losartan, furosemide , and metformin were dc'dlabs as above stablemoni tor labs and need to adjust outpt with pcp Pain in le ft lower limb 300420849 M79.605 addendumpt was ready for discharge and now reporting left lower leg pain and states she can't put weight on itwhen attempting to get dressed for homefamily refuses therapy eval and xray here,famil y requests 911 call, and emergent evaluation at [facility] Health Concerns Section Related Observation LastModified by Organization Detai ls LastModified Time None Recorded Concern Status LastModified by Organization Details LastModified Time None Recorded Advance Directives Directive Y: Payers Encounter Date Sequence Insurance Name Policy Number Policy Meza Covered Member ID Meza Member ID Guarantor Name 04/08/2024 1 [facility] - DOS ON OR AFTER 2022 - MEDICARE [place]AGE [place]AC[place]/ADV ANTAGE - PPO) Mary Lou Cisneros [id number] Mary Lou Cisneros 04/11/2024 1 [facility] - DOS ON OR AFTER 2022 - [place]/ADV ANTAGE - PPO) Mary Lou Cisneros [id number] Mary Lou Cisneros 04/18/2024 1 [facility] - DOS ON OR AFTER 2022 - [place]/ADV ANTAGE - PPO) Mary Lou Gomesa [id number] Mary Lou Gomesa 04/19/2024 1 [facility] - DOS ON OR AFTER 2022 - [place]/ADV ANTAGE - PPO) Mary Lou Gomesa [id number] Mary Lou Cisneros Notes Date Note Type Note Provider Name and Address Organization Details Recorded Time 04/08/2024 text/html Patient is a 73 yo female being seen for initial intake visit. She presented to [facility] for eval of left leg pain. [...] PT and was recommended for transfer to [facility] for continued care and rehab. On arrival from hospital patient reporting to nursing that she hasnt urinated. No report of this occurring while she was at [facility] and she did not have a lovelace. She reports she feels like she has to urinate, asked nursing to get a bladder scan now to assess. Patient has pain to legs chornic, left more than right. She is using oxycodone with good affect PMH depression, morbid obesity, ANILA< asthma, chf, a flutter on amio and eliquis, opiate dependence, hld, htn, DM REEBCA SOTOMAYOR, OSITO-C [address], [address], [place], [address], [place] [employer] [facility] 04/08/2024 13:05:26 04/11/2024 text/html This is a 73 yo woman who is here for rehab after an ED visit for left leg pain after recovery from recent cellulitis.[facility] txed with ceftriaxone and [...] for most activities.I see her with a yi speaking staff member.She is in bed, wakes [...] OA, OP, and fibromyalgia. Genny Aguilar MD [address] [place] [address], [address], [place], [address], [facility] [employer] 04/14/2024 20:04:50 04/18/2024 text/html This is a 73 yo woman who is here for rehab after an ED visit for left leg pain after recovery from recent cellulitis.[facility] txed with ceftriaxone and [...] OA, OP, and fibromyalgia. IBETH PRICE, OSITO [address] [place] [address], [address], [place], [address], [facility] 04/18/2024 14:21:33 04/19/2024 text/html This is a [...] note per records:[facility], txed with ceftriaxone and [...] outpt with pcp She was transferred to [facility] for rehab on 04/08 and working with rehab showing improvement and felt she is stable to discharge home. Vitals stable here and BP labile, last at 132/72 this am. While at [facility] she was seen by the wound [...] 2024. She will be picked up by [facility] @ 1:00 PM. A referral has been made to [facility] for ongoing skilled services. She will be seen on Wednesday @ 4:00 PM. [facility] notified of discharge with request to resume services. A follow-up appointment has been scheduled with her PCP, Dr. Kimmy Myers @ . It will be on April 26 @ 9:45 AM.Mary Lou Hess is scheduled to be discharged home on Friday, April 19, 2024. She will be picked up by [facility] @ 1:00 PM. A referral has been made to [facility] for ongoing skilled services. She will be seen on Wednesday @ 4:00 PM. [facility] notified of discharge with request to resume [...] she goes home from ER. discussed with it network administrator at facility Raiza Madsen NP [address], [address], [place], [address], [place] [employer] 04/19/2024 13:13:44 OBGyn Episode No OBEpisode recorded.
[2025-01-05] MEDS: HYDROmorphone HCl 1 MG/ML SYRINGE IVPUSH (10:15)
[2025-01-05 10:29] LABS: MANUAL DIFF FLAG NO
[2025-01-05 10:30] VITALS: BP 132/78; PULSE 90; RESP 19; TEMP 37.3; O2SAT 98
--- NOTE | 2025-01-05 10:33 | PC.NURSE ---
Syrian speaking patient presents to ED c/o right shoulder pain rated 10/10 non radiating. Patient said she woke up at 0500 and was in pain, patient took percocet with no effect. PMH arthritis and fibromyalgia. Denies injury, denies feeling this pain before. +CMS decreased ROM pain on movement. xray of right shoulder and humerus found no acute findings. 20G in left brachial. Patient in CT, results pending. Plan of care on going.
[2025-01-05 10:34] LABS: Basophils Absolute Auto 0.1 X10*3/uL (0.0-0.2); Basophils Percent Auto 0.9 % (0-2); Eosinophils Absolute Auto 0.1 X10*3/uL (0.0-0.4); Eosinophils Percent Auto 2.1 % (0-4); Hematocrit 27.9 % (37.0-47.0); Hemoglobin 8.1 g/dl (12.0-16.0); Imm Gran Abs Auto 0.03 X10*3/uL (0.00-0.03); Imm Gran Pct Auto 0.5 % (0.0-0.4); Lymphocytes Absolute Auto 1.3 X10*3/uL (1.2-4.9); Lymphocytes Percent Auto 20.7 % (20-40); Mean Corpuscular Hemoglobin 21.2 pg (27.0-33.0); Mean Platelet Volume 10.7 fL (9.4-12.3); Monocytes Absolute Auto 0.4 X10*3/uL (0.1-1.2); Monocytes Percent Auto 6.6 % (2-11); NRBC Pct Auto 0.3 /100WBC (0.0-0.2); Neutrophils Absolute Auto 4.4 x10*3/uL (2.0-8.3); Neutrophils Percent Auto 69.2 % (45-73); Platelet Count 219 X10*3/uL (160-400); Red Blood Count 3.82 X10*6/uL (4.20-5.50); Red Cell Distribution Width 16.3 % (11.0-16.0); White Blood Count 6.3 X10*3/uL (4.8-10.8)
[2025-01-05 10:50] LABS: Alanine Aminotransferase 7 U/L (0-31); Albumin Level 3.3 g/dL (3.5-5.0); Alkaline Phosphatase 63 U/L (39-117); Anion Gap 16 (12-20); Aspartate Amino Transferase 19 U/L (5-31); Bilirubin Total 0.3 mg/dL (0.0-1.0); Blood Urea Nitrogen 37 mg/dL (9-16); Calcium 8.8 mg/dL (8.4-10.2); Carbon Dioxide 31 mmol/L (22-29); Chloride 95 mmol/L (96-108); Creatinine Clr Calc Pharmacy 31.5; Estimated Glomerular Filt Rate 31; Glucose Random 274 mg/dL (60-115); Sodium 138 mmol/L (135-145); Total Protein 6.7 g/dL (6.5-8.0)
--- NOTE | 2025-01-05 11:32 | PC.NURSE ---
Received critical lab from [facility]. Potassium 6.1, Glucose 567 labs read back and confirmed. Provider Maggy notified
--- NOTE | 2025-01-05 11:55 | ED_ITS ---
HPI - Extremity Problem General Chief complaint: Extremity Injury, Upper Stated complaint: UPPER ARM PAIN Time Seen by Provider: 01/05/25 08:16 History of Present Illness HPI Narrative: Patient is a 74-year-old female presents today with having right upper extremity pain. History of the same pain. Took some oxycodone it was not helping. Came in complaining that she can not move her shoulder 10/10 yelling screaming. In extremis. There is no fever no chills. No bowel urinary incontinence. No tingling to the finger. No history of being on blood thinners. Related Data Home Medications ?Medication ?Instructions ?Recorded ?Confirmed atorvastatin 80 mg tablet 80 mg PO BEDTIME 04/07/21 12/06/24 duloxetine 20 mg capsule,delayed 20 mg PO DAILY 03/18/24 12/06/24 release omeprazole 40 mg capsule,delayed 40 mg PO DAILY@0630 03/18/24 12/06/24 release aspirin 81 mg tablet,delayed 81 mg PO BEDTIME 06/11/24 12/06/24 release gabapentin 100 mg capsule 100 mg PO TID 06/11/24 12/06/24 oxycodone-acetaminophen 5 mg-325 1 tab PO Q6H PRN pain 06/11/24 12/06/24 mg tablet ketotifen fumarate 0.025 % (0.035 1 drp ophthalmic (eye) Q12H PRN 10/06/24 12/06/24 %) eye drops (Eye Itch Relief) Eye Irritation trazodone 150 mg tablet 150 mg PO BEDTIME 10/06/24 12/06/24 calcium carbonate (Oyster Shell 500 mg PO BID 12/06/24 12/06/24 Calcium 500) dulaglutide 1.5 mg/0.5 mL 1.5 mg subcut FR 12/06/24 12/06/24 subcutaneous pen injector (Trulicity) hydroxyzine HCl 25 mg tablet 25 mg PO Q8H PRN anxiety 12/06/24 12/06/24 insulin degludec 200 unit/mL (3 64 unit subcut DAILY 12/06/24 12/06/24 mL) subcutaneous pen (Tresiba FlexTouch U-200 insulin) loratadine 10 mg tablet 10 mg PO DAILY 12/06/24 12/06/24 melatonin 3 mg tablet 3 mg PO BEDTIME 12/06/24 12/06/24 Previous Rx's ?Medication ?Instructions ?Recorded apixaban 5 mg tablet (Eliquis) 5 mg PO BID #60 tabs 11/03/23 amlodipine 5 mg tablet 5 mg PO DAILY #30 tabs 06/20/24 torsemide 20 mg tablet 20 mg PO DAILY #30 tabs 06/20/24 ammonium lactate 12 % lotion 1 appl topical BID #400 grams 12/08/24 doxycycline monohydrate 100 mg 100 mg PO BID #14 caps 12/08/24 capsule levothyroxine 88 mcg capsule 88 mcg PO DAILY #90 caps 12/08/24 Allergies Allergy/AdvReac Type Severity Reaction Status Date / Time codeine [CODEINE] Allergy Intermediate HALLUCINATI Verified 01/05/25 08:17 ONS Review of Systems 2 Review of Systems: Positive pain to the right shoulder area PMFSH Past Medical History Attestation statement: The following information was validated with the patient. Medical History Anxiety Insomnia CKD (chronic kidney disease) CKD stage 3 due to type 2 diabetes mellitus Leg abrasion Abuse of non-prescription analgesics Type 2 diabetes mellitus with unspecified complications Other and unspecified hyperlipidemia Essential hypertension Atherosclerotic cardiovascular disease Urgency incontinence Osteoporosis Arthritis Asthma Hypertension Fibromyalgia Diabetes mellitus Surgical History History of hernia repair Social History Social History Household Members: Family Household Members Other:: friend Housing: Unknown / Unable to assess Do you presently have visiting nurse or other home services: Yes Unable to assess alcohol history related to: Refusing to respond Alcohol intake: never 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 Oriented X3. No acute distress. Eyes: Pupils equal, round and reactive to light. ENT: Pharynx normal. Neck: Normal inspection. Neck supple. No lymph nodes noted. No crepitus CVS: Normal heart rate and rhythm. Pulses normal. Normal S1 and S2 Respiratory: No respiratory distress. Breath sounds normal. No Wheezing. No rales Abdomen: Soft and nontender. No rigidity. No distention. good BS x4 Skin: Skin warm and dry. Normal skin color. Normal skin turgor. Extremities: Limited movement of the right shoulder. Patient has no gross deformity of the elbow. No deformity of the wrist. Distal pulses intact sensation intact. Neuro: Oriented X 3. No motor deficit. No sensory deficit. Moving all extermities. No slurred speech Medications Administered Discontinued Medications Generic Name Dose Route Start Last Admin Trade Name Freq PRN Reason Stop Dose Admin Hydromorphone HCl 1 mg 01/05/25 08:27 01/05/25 10:15 Hydromorphone Hcl 1 Mg/Ml Syringe IVPUSH 01/05/25 08:28 1 mg ONCE ONE Administration Protocol Lidocaine HCl 5 ml 01/05/25 11:52 01/05/25 12:35 Lidocaine Hcl 1 % Mpf 30 Ml Vial INTRAARTIC 01/05/25 11:53 5 ml ONCE ONE Administration Protocol Medical Decision Making Medical Decision Making [facility] Narrative: X-ray of the shoulder showed a possible dislocation by my interpretation. Patient is x-ray of the elbow x-ray of the wrist were grossly negative. Radiology's review of the x-ray showed no gross fracture. A CT scan of the shoulder was done. The CT scan per radiology was positive for having large amount of joint effusion. Will attempt an arthrocentesis and sent off the results. Risk and benefit of the arthrocentesis discussed with patient including risk of infection. Risk of bleeding. Especially when patient is on Eliquis. She has a history of atrial flutter although she claims she has not been taking the medication. Patient is shoulder was tapped. About 15 cc of bloody fluid was removed. Symptomatically feels much improved. No distress. Now sleeping. Orthopedics was contacted. Patient is cell count was 16,000. No gross evidence of infection signs of hemarthrosis likely secondary to Eliquis orthopedics recommended follow-up with her primary physician. Patient will follow-up with both. In stable condition. Differential Diagnosis Differential Diagnoses: The differential diagnosis associated with the presentation includes Joint effusion Admission/Observation Consideration of admission/observation: Escalation of care including admission/observation considered Lab Data MDM Lab Attestation statement: I reviewed the patient's lab results. 01/05/25 10:23 01/05/25 10:23 Labs: Lab Results 01/05/25 01/05/25 01/05/25 Range/Units 10:23 10:23 10:23 WBC 6.3 (4.8-10.8) X10*3/uL RBC 3.82 L (4.20-5.50) X10*6/uL Hgb 8.1 L (12.0-16.0) g/dl Hct 27.9 L (37.0-47.0) % MCV 73.0 L (80.0-98.0) fL MCH 21.2 L (27.0-33.0) pg MCHC 29.0 L (31.0-35.0) g/dl RDW 16.3 H (11.0-16.0) % Plt Count 219 (160-400) X10*3/uL MPV 10.7 (9.4-12.3) fL Immature Gran % (Auto) 0.5 H (0.0-0.4) % Neut % (Auto) 69.2 (45-73) % Lymph % (Auto) 20.7 (20-40) % Bartholomew % (Auto) 6.6 (2-11) % Eos % (Auto) 2.1 (0-4) % Baso % (Auto) 0.9 (0-2) % Lymph # (Auto) 1.3 (1.2-4.9) X10*3/uL Bartholomew # (Auto) 0.4 (0.1-1.2) X10*3/uL Eos # (Auto) 0.1 (0.0-0.4) X10*3/uL Baso # (Auto) 0.1 (0.0-0.2) X10*3/uL Abs Immat Gran (auto) 0.03 (0.00-0.03) X10*3/uL Absolute Neuts (auto) 4.4 (2.0-8.3) x10*3/uL Absolute Nucleated RBC 0.020 H (0.0-0.012) X10*3/uL Nucleated RBC % (auto) 0.3 H (0.0-0.2) /100WBC Sodium Cancelled 138 Potassium Cancelled 4.0 Chloride Cancelled Carbon Dioxide Anion Gap BUN Creatinine Estim Creat Clear Calc Estimated GFR Random Glucose Calcium Total Bilirubin (0.0-1.0) mg/dL AST (5-31) U/L ALT (0-31) U/L Alkaline Phosphatase (39-117) U/L Total Protein (6.5-8.0) g/dL Albumin (3.5-5.0) g/dL Synovial Source Synovial WBC X10*3/uL Synovial RBC X10*6/uL Synovial Neutrophils % Synovial Lymphocytes % Synovial Monocytes % Synovial Eosinophils % 01/05/25 01/05/25 01/05/25 Range/Units 10:23 10:23 10:23 WBC (4.8-10.8) X10*3/uL RBC (4.20-5.50) X10*6/uL Hgb (12.0-16.0) g/dl Hct (37.0-47.0) % MCV (80.0-98.0) fL MCH (27.0-33.0) pg MCHC (31.0-35.0) g/dl RDW (11.0-16.0) % Plt Count (160-400) X10*3/uL MPV (9.4-12.3) fL Immature Gran % (Auto) (0.0-0.4) % Neut % (Auto) (45-73) % Lymph % (Auto) (20-40) % Bartholomew % (Auto) (2-11) % Eos % (Auto) (0-4) % Baso % (Auto) (0-2) % Lymph # (Auto) (1.2-4.9) X10*3/uL Bartholomew # (Auto) (0.1-1.2) X10*3/uL Eos # (Auto) (0.0-0.4) X10*3/uL Baso # (Auto) (0.0-0.2) X10*3/uL Abs Immat Gran (auto) (0.00-0.03) X10*3/uL Absolute Neuts (auto) (2.0-8.3) x10*3/uL Absolute Nucleated RBC (0.0-0.012) X10*3/uL Nucleated RBC % (auto) (0.0-0.2) /100WBC Sodium Potassium Chloride 95 L Carbon Dioxide Cancelled 31 H Anion Gap Cancelled 16 BUN Cancelled Creatinine Estim Creat Clear Calc Estimated GFR Random Glucose Calcium Total Bilirubin (0.0-1.0) mg/dL AST (5-31) U/L ALT (0-31) U/L Alkaline Phosphatase (39-117) U/L Total Protein (6.5-8.0) g/dL Albumin (3.5-5.0) g/dL Synovial Source Synovial WBC X10*3/uL Synovial RBC X10*6/uL Synovial Neutrophils % Synovial Lymphocytes % Synovial Monocytes % Synovial Eosinophils % 01/05/25 01/05/25 01/05/25 Range/Units 10:23 10:23 10:23 WBC (4.8-10.8) X10*3/uL RBC (4.20-5.50) X10*6/uL Hgb (12.0-16.0) g/dl Hct (37.0-47.0) % MCV (80.0-98.0) fL MCH (27.0-33.0) pg MCHC (31.0-35.0) g/dl RDW (11.0-16.0) % Plt Count (160-400) X10*3/uL MPV (9.4-12.3) fL Immature Gran % (Auto) (0.0-0.4) % Neut % (Auto) (45-73) % Lymph % (Auto) (20-40) % Bartholomew % (Auto) (2-11) % Eos % (Auto) (0-4) % Baso % (Auto) (0-2) % Lymph # (Auto) (1.2-4.9) X10*3/uL Bartholomew # (Auto) (0.1-1.2) X10*3/uL Eos # (Auto) (0.0-0.4) X10*3/uL Baso # (Auto) (0.0-0.2) X10*3/uL Abs Immat Gran (auto) (0.00-0.03) X10*3/uL Absolute Neuts (auto) (2.0-8.3) x10*3/uL Absolute Nucleated RBC (0.0-0.012) X10*3/uL Nucleated RBC % (auto) (0.0-0.2) /100WBC Sodium Potassium Chloride Carbon Dioxide Anion Gap BUN 37 H Creatinine Cancelled 1.62 H Estim Creat Clear Calc Cancelled 31.5 Estimated GFR Cancelled Random Glucose Calcium Total Bilirubin (0.0-1.0) mg/dL AST (5-31) U/L ALT (0-31) U/L Alkaline Phosphatase (39-117) U/L Total Protein (6.5-8.0) g/dL Albumin (3.5-5.0) g/dL Synovial Source Synovial WBC X10*3/uL Synovial RBC X10*6/uL Synovial Neutrophils % Synovial Lymphocytes % Synovial Monocytes % Synovial Eosinophils % 01/05/01/05/01/05/25 Range/Units 10:23 10:23 10:23 WBC (4.8-10.8) X10*3/uL RBC (4.20-5.50) X10*6/uL Hgb (12.0-16.0) g/dl Hct (37.0-47.0) % MCV (80.0-98.0) fL MCH (27.0-33.0) pg MCHC (31.0-35.0) g/dl RDW (11.0-16.0) % Plt Count (160-400) X10*3/uL MPV (9.4-12.3) fL Immature Gran % (Auto) (0.0-0.4) % Neut % (Auto) (45-73) % Lymph % (Auto) (20-40) % Bartholomew % (Auto) (2-11) % Eos % (Auto) (0-4) % Baso % (Auto) (0-2) % Lymph # (Auto) (1.2-4.9) X10*3/uL Bartholomew # (Auto) (0.1-1.2) X10*3/uL Eos # (Auto) (0.0-0.4) X10*3/uL Baso # (Auto) (0.0-0.2) X10*3/uL Abs Immat Gran (auto) (0.00-0.03) X10*3/uL Absolute Neuts (auto) (2.0-8.3) x10*3/uL Absolute Nucleated RBC (0.0-0.012) X10*3/uL Nucleated RBC % (auto) (0.0-0.2) /100WBC Sodium Potassium Chloride Carbon Dioxide Anion Gap BUN Creatinine Estim Creat Clear Calc Estimated GFR 31 Random Glucose Cancelled 274 H Calcium Cancelled 8.8 Total Bilirubin 0.3 (0.0-1.0) mg/dL AST 19 (5-31) U/L ALT 7 (0-31) U/L Alkaline Phosphatase 63 (39-117) U/L Total Protein 6.7 (6.5-8.0) g/dL Albumin 3.3 L (3.5-5.0) g/dL Synovial Source Synovial WBC X10*3/uL Synovial RBC X10*6/uL Synovial Neutrophils % Synovial Lymphocytes % Synovial Monocytes % Synovial Eosinophils % //25 Range/Units 12:33 WBC (4.8-10.8) X10*3/uL RBC (4.20-5.50) X10*6/uL Hgb (12.0-16.0) g/dl Hct (37.0-47.0) % MCV (80.0-98.0) fL MCH (27.0-33.0) pg MCHC (31.0-35.0) g/dl RDW (11.0-16.0) % Plt Count (160-400) X10*3/uL MPV (9.4-12.3) fL Immature Gran % (Auto) (0.0-0.4) % Neut % (Auto) (45-73) % Lymph % (Auto) (20-40) % Bartholomew % (Auto) (2-11) % Eos % (Auto) (0-4) % Baso % (Auto) (0-2) % Lymph # (Auto) (1.2-4.9) X10*3/uL Bartholomew # (Auto) (0.1-1.2) X10*3/uL Eos # (Auto) (0.0-0.4) X10*3/uL Baso # (Auto) (0.0-0.2) X10*3/uL Abs Immat Gran (auto) (0.00-0.03) X10*3/uL Absolute Neuts (auto) (2.0-8.3) x10*3/uL Absolute Nucleated RBC (0.0-0.012) X10*3/uL Nucleated RBC % (auto) (0.0-0.2) /100WBC Sodium Potassium Chloride Carbon Dioxide Anion Gap BUN Creatinine Estim Creat Clear Calc Estimated GFR Random Glucose Calcium Total Bilirubin (0.0-1.0) mg/dL AST (5-31) U/L ALT (0-31) U/L Alkaline Phosphatase (39-117) U/L Total Protein (6.5-8.0) g/dL Albumin (3.5-5.0) g/dL Synovial Source right shoulder Synovial WBC 1.678 X10*3/uL Synovial RBC 2.983 X10*6/uL Synovial Neutrophils 77 % Synovial Lymphocytes 15 % Synovial Monocytes 3 % Synovial Eosinophils 5 % Independent Interpretation I performed an independent interpretation of an: Plain X-Ray (Possible dislocation of the right shoulder, negative elbow) Radiology Impression Discussion of test interpretation with radiology: I have reviewed the radiologist's reading. External Record Review External record reviewed: Inpatient record and Office record Procedures Joint Aspiration/Injection Joint Asp./Inject. 1: Time Out Performed: Yes Side of body: right Joint Aspirated: shoulder Ultrasound Guidance: No Skin Prep: Chlorhexidine Local Anesthetic: lidocaine 1% Amount of anesthesia used (mL): 3 Needle Size Used: Other (21) Fluid Obtained: bloody Total fluid obtained (mL): 15 Patient Tolerated Procedure: well Complications: none Discharge Plan Discharge Clinical Impression: Joint effusion Patient Disposition: Home, Self-Care Instructions: Joint Aspiration (DC), Swollen Shoulder Joint (ED) Additional Instructions: ice, motrin, oxycodone for extreme pain Prescriptions: No Action atorvastatin 80 mg tablet 80 mg PO BEDTIME Eliquis 5 mg Tablet 5 mg PO BID Qty: 60 0RF omeprazole 40 mg capsule,delayed release(DR/EC) 40 mg PO DAILY@0630 duloxetine 20 mg capsule,delayed release(DR/EC) 20 mg PO DAILY melatonin 3 mg tablet 3 mg PO BEDTIME calcium carbonate [Oyster Shell Calcium 500] 500 mg calcium (1,250 mg) tablet 500 mg PO BID hydroxyzine HCl 25 mg tablet 25 mg PO Q8H PRN (Reason: anxiety) insulin degludec [Tresiba FlexTouch U-200] 200 unit/mL (3 mL) insulin pen 64 unit subcut DAILY loratadine 10 mg Tablet 10 mg PO DAILY Trulicity 1.5 mg/0.5 mL pen injector 1.5 mg subcut FR ammonium lactate 12 % Lotion 1 appl topical BID Qty: 400 0RF Protocol: Apply to: Apply to: bilateral lower extremities Rx Instructions: lower extremities doxycycline monohydrate 100 mg capsule 100 mg PO BID Qty: 14 0RF levothyroxine 88 mcg capsule 88 mcg PO DAILY Qty: 90 0RF aspirin 81 mg tablet,delayed release (DR/EC) 81 mg PO BEDTIME oxycodone-acetaminophen 5-325 mg tablet 1 tab PO Q6H PRN (Reason: pain) gabapentin 100 mg capsule 100 mg PO TID torsemide 20 mg tablet 20 mg PO DAILY Qty: 30 0RF amlodipine 5 mg Tablet 5 mg PO DAILY Qty: 30 0RF Protocol: Hold for SBP< HOLD for SBP < : 90 ketotifen fumarate [Eye Itch Relief] 0.025 % (0.035 %) drops 1 drp ophthalmic (eye) Q12H PRN (Reason: Eye Irritation) trazodone 150 mg tablet 150 mg PO BEDTIME Referrals: Amanda Watkins MD [Primary Care Provider] - Carter Goldsmith MD [Physician] - 01/08/25 Interventions: ED Discharge Assessment Last Done: 01/05/25 14:20 Print Language: Hebrew
[2025-01-05] MEDS: Lidocaine HCl 1 % MPF 30 ML VIAL 5 ML INTRAARTIC (12:35)
[2025-01-05 13:16] LABS: MN% 36.4 %; PMN% 63.6 %; RBC Synovial Fluid 2.983 X10*6/uL; WBC Synovial Fluid 1.678 X10*3/uL
[2025-01-05 13:56] LABS: Lymphocytes Synovial Fluid 15 %; Monocytes Synovial Fluid 3 %
[2025-01-05 13:57] LABS: BF Shift QC OK YES; Eosinophils Synovial Fluid 5 %; Neutrophils Synovial Fluid 77 %
[2025-01-05 14:00] VITALS: BP 143/43; PULSE 65; RESP 14; TEMP 36.7; O2SAT 93
[2025-01-05 14:20] VITALS: BP 143/43; PULSE 65; RESP 14; TEMP 36.7; O2SAT 93
[2025-01-05 14:29] LABS: Source Synovial Fluid right shoulder
[2025-01-08 12:12] LABS: Total Protein Synovial Fluid 5.2
[2025-01-08 20:49] LABS: Lyme PCR Source FLUID, SYNOVIAL; Lyme Synovial Fluid PCR NOT DETECTED (NOT DETECTED)
[2025-01-11 07:49] LABS: Glucose Synovial Fluid 142
== END 2025-01-05 14:43 | disposition home or self-care (01) ==
PROVIDERS: Emergency Provider Emergency Medicine Emergency Medical Services; PCP Internal Medicine
DX: M25.411 Effusion, right shoulder (principal); M25.511 Pain in right shoulder; E11.22 Type 2 diabetes mellitus with diabetic chronic kidney disease; I12.9 Hypertensive chronic kidney disease with stage 1 through stage 4 chronic kidney disease, or unspecified chronic kidney disease; N18.30 Chronic kidney disease, stage 3 unspecified; Z79.899 Other long term (current) drug therapy
CPT/HCPCS: 20610; 36415; 73030; 73060; 73070; 73200; 80053; 82945; 84157; 85025; 87070; 87073; 87205; 87476; 89051; 89060; 96374; 99284; J1171; J2003

== ENCOUNTER → 2025-01-05 08:27 | Outpatient (BNV) | payer OTHER, SELFPAY | PROVIDERS: Emergency Provider Emergency Medicine Emergency Medical Services; PCP Internal Medicine; Visit Provider Radiology Diagnostic Radiology | DX: M25.411 Effusion, right shoulder (principal); M19.011 Primary osteoarthritis, right shoulder; M75.31 Calcific tendinitis of right shoulder; M25.511 Pain in right shoulder; M25.521 Pain in right elbow; M79.621 Pain in right upper arm | CPT/HCPCS: 73030; 73060; 73070; 73200 ==

== ENCOUNTER → 2025-03-03 16:29 | Outpatient (BNV) | payer OTHER, SELFPAY | PROVIDERS: Admitting Provider Student in an Organized Health Care Education/Training Program; Emergency Provider Emergency Medicine Emergency Medical Services; PCP Internal Medicine; Visit Provider Internal Medicine Cardiovascular Disease | DX: I49.3 Ventricular premature depolarization (principal) | CPT/HCPCS: 93010 ==

== ENCOUNTER 2025-03-03 16:30 | Inpatient (IN) | payer OTHER, SELFPAY ==
[2025-03-03] VITALS (8 sets, daily range): BP systolic 128–160; BP diastolic 40–64; PULSE 60–73; RESP 15–24; TEMP 36.9–37.6; O2SAT 98–99; BMI 48.6
--- NOTE | ~2025-03-03 | XR_ITS ---
CLINICAL HISTORY: SOB Chest Radiograph Comparison: 08/22/24 Findings: Cardiomegaly. Normal mediastinal contours. No pneumothorax. No opacity. No pleural effusion. Normal upper abdomen. No acute fracture. Impression: No acute findings. This document has been electronically signed by: Amanda Forbes MD on 03/03/2025 18:57:10
--- NOTE | ~2025-03-03 | XR_ITS ---
CLINICAL HISTORY: R shoulder pain, limited ROM --- Additional Notes or Special Instructions: if able to do portable, ok Right shoulder, 2 views COMPARISON: Portions of CT/[place]/SR - CT SHOULDER RT WO IV CON - 01/05/25 10:37 EDT FINDINGS: No acute fracture. No dislocation. Unremarkable soft tissues. IMPRESSION: No acute findings. This document has been electronically signed by: Jonatan Malone MD on 03/04/2025 00:51:27
--- NOTE | ~2025-03-03 | CT_ITS ---
CLINICAL HISTORY: anemic, ?Gi bleed CT Abdomen and Pelvis W Contrast COMPARISON: CT/SR - CT ABDOMEN PELVIS WO IV CON - 11/25/24 11:29 EDT FINDINGS: Detail limited by artifacts. Small bilateral pleural effusions with adjacent atelectasis and/or infiltrates. Cardiomegaly. Normal liver. Normal spleen. Bilateral renal cysts. No hydronephrosis. Normal adrenal glands. Normal pancreas. Cholelithiasis. No CT evidence of acute cholecystitis. No biliary dilation. Air-fluid levels in nondistended small bowel. No mucosal thickening. No evidence of obstruction. No visible intraluminal IV contrast extravasation in the GI tract at the time of the study. No evidence of acute appendicitis. Unremarkable bladder. Calcified uterine fibroids. No ascites. No pneumoperitoneum. No lymphadenopathy. No acute fracture. Degenerative changes in the spine. No abdominal aortic aneurysm. Status post ventral herniorrhaphy with mesh. Anasarca. IMPRESSION: Air-fluid levels in nondistended small bowel, which could be due to enteritis or dysmotility. Anasarca. Small bilateral pleural effusions with adjacent atelectasis and/or infiltrates. Nonemergent/incidental findings above. This document has been electronically signed by: Jonatan Malone MD on 03/03/2025 21:15:14
--- NOTE | 2025-03-03 16:29 | ECG_ITS ---
Test Reason : CHEST PAIN Blood Pressure : */* mmHG Vent. Rate : 73 BPM Atrial Rate : * BPM P-R Int : * ms QRS Dur : 82 ms QT Int : 406 ms P-R-T Axes : * -12 24 degrees QTcB Int : 447 ms Normal sinus rhythm with occasional Premature ventricular complexes Possible Anterior infarct (cited on or before 02-Aug-2024) Abnormal ECG When compared with ECG of 06-Dec-2024 04:03, No significant changes seen Referred By: Generic ED Physician Electronically Signed By: Asif Zhao
--- OUTSIDE RECORDS SUMMARY | 2025-03-03 17:18 | XMS_ITS | Clinical Summary ---
Author Organization [facility] Address [address] [place] [phone] Phone Care Team Providers Care Glass Finisher Name Role Phone Amanda Watkins MD Primary [...] 03/01/2023 Diabetes: Hemoglobin A1C 11/30/2024 09/01/2024, 02/07 Influenza Vaccine (#1) 2025 , 07/08/2018, 09/30/2017, Additional history exists Hepatitis B Vaccine Aged Out 06/07/2007, 11/01/2006, 03/12/2006 No longer eligible based on patient's age to complete this topic Pneumococcal Vaccine: 50+ Years Completed 12/06/2023, 07/16/2016, 02/17/2013, Additional history exists Pneumococcal Vaccine: Peds (0 to 5 Years) and At-Risk Patients (6 to 49 Years) Discontinued 12/06/2023, 07/16/2016, 02/17/2013, Additional history exists Insurance [facility] MCR ([id number]) [place] [id number] [place] [id number] [facility] ([id number]) [place] [id number] Care Teams Glass Finisher Relationship Specialty Start Date End Date Amanda Watkins MD [address] [place] [id number] PCP - General Internal Medicine 03/01/23
--- OUTSIDE RECORDS SUMMARY | 2025-03-03 17:18 | XMS_ITS | Encounter Summary ---
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 PRESS TENDER SHORT GOODS reporting discoloration changes in her legs (redness)", patientReports : , denies :[ Horowitz Flash, circumferential horowitz , Horowitz reported with black tissue to the area , Open skin area aftera fall with uncontrolled bleeding , Abscess/infection with streaking noted, presence of fever or without ], chiefComplaints : Extremity Pain , pmh : Hypertension, COPD/Asthma, Chronic Back Pain, Fibromyalgia, Osteoarthritis, Osteoporosis , allergies : Codeine , otherAllergies :null, painAssessment :&quot ; , visitOutcome : , additionalComments : 74 y.o female complains of Extremity Pain\nPatient's PRESS TENDER SHORT GOODS calling reporting patient is having red discoloration to L l ower leg for the last two weeks. PRESS TENDER SHORT GOODS reports this has happened before and the leg ended up getting open wounds. Patient reporting pain in L leg but denies fever or chills. Patient is reporting swelling to lower leg as well. I provided information on the mobile health provider response time and advised the patient and/or caregiver to monitor reported signs and symptoms. I discussed the warning signs of when to seek emergency care -Trip Shipley RN } Encountered patient supine and conscious with family present. Patient reports bilateral lower extremity pain as well as inflammation which is most prominent in the lower left extremity. Patient denies chest pain and shortness of breath at rest but admits to exertional shortness of breath and fatigue as baseline; is on 2L of oxygen via nasal cannula at baseline but is not wearing oxygen at start of appointment. Patient denies fevers, popliteal pain or inflammation. BMP performed, values uploadedvia [employer] Skin warm, dry and of appropriate color for ethnicity. Head and neck, free of trauma and edema. PERRL. -JVD. Breath sounds exhibit expiratory wheezing in the apexes and diminished bases. Upper extremities free of trauma and edema. Lower left extremity exhibit inflammation ranging from the top of the ankle traveling up the anterior shay and stopping midway up toward the patellar region. Lower right extremity exhibits smaller, more diffuse areas that also remain both anterior and below the knee; peripheral pulses present throughout. [facility] contacted: reports they will treat patient for a suspected infection while also addressing possible fluid retention. Augmentin x1 administered. Albuterol neb treatment x1 administered. 40mg IM Furosemide administered. All medications administered after reconciling ???rights?? with patient and family. [facility] reports they will send a prescription for further treatment to a pharmacy of patients choice. Patient was encouraged to monitor herself for worsening symptoms including shortness of breath, chest pain or increased swelling; was urged to seek further medical care including 911 should saidsymptoms develop. Additionally, patient was advised to arrange a primary care appointment in order to follow-up on fluid status. Patient verbalizes understanding of the plan and states she is comfortable remaining home today. IV_(FLUIDS_AND/OR_MEDICATION), MEDICATION_IM, ORAL_MEDICATION, WOUND_CARE, ORTHOSTATIC_VITAL_SIGNS Written by Parish Martinez on 2025-02-26
--- OUTSIDE RECORDS SUMMARY | 2025-03-03 17:18 | XMS_ITS | Continuity of Care Document ---
Author Organization [facility] Address [address] [place] [id number] Care Team Providers Care Staff Nuclear Medicine Technologist Name Role Phone HIM CCA OTHER CRUZ MAURICE Primary Care Provider [phone] Assessment Encounter Date Assessment Date Assessment LastModified by Organization Details LastModified Time 02/26/2025 02/26/2025 I provided real -time medical direction via phone for this encounter, and was available for additional phone based assistance as needed. I have reviewed and agree with the Assessment and Plan as documented by the Poll Watcher. We discussed the diagnostic uncertainty of home [...] black/bloody emesis or stool/ AMS/ syncope/ hi fever/ intolerable leg pain or if leg becomes very hot red/ cold blue or numb to call 911- verbalized understanding of instruction [email or web address] Not available 02/26/2025 13:27:16 Plan of Treatment Reminders Order Date Submit Date Provider Last Modified By Organization Details Last Modified Time Details Appointments None recorded. Lab BMP, serum or plasma 2024 025 [facility], [address] [place] [address], [id number] 18:49:55 Referral None recorded. Procedures None recorded. Surgeries None recorded. Imaging None recorded. Medication Orders amoxicillin 875 mg-potassiu m clavulanate 125 mg tablet 2024 025 [facility], [address], [place], [id number], 5 12:52:33 amoxicillin 500 mg-potdioneu m clavulanate 125 mg tablet [address] [facility], [address] [place] [address], [id number], 5 12:44:30 bacitracin 500 unit/gram topical ointment 2024 025 [facility], [address] [place] [address], [id number], 5 12:52:29 furosemide 10 mg/mL injection solution [address] [facility], [address] [place] [address], [id number], 5 13:25:40 albuterol sulfate 2.5 mg/3 mL (0.083 %) solution for nebulizatio n [address] [facility], [address] [place] [address], [id number], 5 12:44:30 albuterol sulfate 2.5 mg/3 mL (0.083 %) solution for nebulizatio n 2024 025 [facility], [address] [place] [address], [id number], 5 12:52:33 albuterol sulfate HFA 90 mcg/actuati on aerosol inhaler 2024 025 [facility], [address] [place] [address], [id number], 5 12:52:28 Patient TargetsNo targets recorded. Patient InstructionsNo instructions recorded. Reason for Referral None Reported. Results Created Date Observation Date Name Description Value Unit Range Abnormal Flag Note LastModifiedBy Organization Detail LastModifiedTime Result Notes None recorded. Medical Equipment None Reported. Allergies Allergen ID Allergen Name Allergen Category Reaction Reaction Severity Criticality Documentation Date Start Date Code Code System Note Provider Name and Address Organization Details Recorded Time 5119 codeine medicatio n Not available Not available Not available 12/30/2023 2670 RxNorm Not Available [employer] - production 5 10:35:11 Medications Name Sig Start Date Stop Date [...] Not Available Not Available No t Available albuterol sulfate 2.5 mg/3 mL (0.083 %) solution for nebulization Inhale 3 mL every 6 hours by nebulizatio n route. 2024 active Not Available Not Available Not Avai lable nitroglyceri n 0.3 mg sublingual tablet DISSOLVE [...] t Available bacitracin 500 unit/gram topical ointment Apply 1 application twice a day by topical route for 10 days. 2024 active Not Available Not Available Not Avai lable melatonin 3 mg tablet TAKE 1 TABLET [...] active Not Available Not Available Not Available albuterol sulfate HFA 90 mcg/actuatio n aerosol inhaler Inhale 2 puffs 4 times a day by inhalation route as needed. 2024 active Not Available Not Available Not Avai lable paroxetine 40 mg tablet TAKE 1 TABLET [...] amoxicillin 875 mg-potassium clavulanate 125 mg tablet Take 1 tablet every 12 hours by oral route after meal(s) for 7 days. 2024 active Not Available Not Available Not [...] Not Available Not Available Not Available FreeStyle [place] Lite kit USE DIRECTED TO TEST BLOOD [...] Syringe Ultra-Fine 1 mL 31 gauge x 5/16 USE [...] Available No t Available FreeStyle Mickey 2 [place] USE DIRECTED EVERY 8 HOURS active Not Available Not Available No t Available Vitals Date Recorded Body height Body mass index (BMI) Body weight Provider Name and Address Organization Details Last Updated DateTime 02/26/2025 134.62 cm 61.5 kg/m2 439961 g Radha Foster MD [address] [place] [address],[address], [place], [phone] [employer] 02/26/2025 17:57:17 Date Recorded Oxygen saturation Oxygen saturation in Arterial blood by Pulse oximetry Respiratory rate Heart rate Body temperature Systolic And Diastolic Provider Name and Address Organization Details Last Updated DateTime 92 % 92 % 18 /min 68 /min 98.8 [degF] 152/84 mm[Hg] Not Available [employer] 12:10:50 Social History None recorded. Functional Status None recorded. Mental Status None recorded. Family History Nothing Reported. Medical History No medical history recorded. Gynecological HistoryNo gynecological history recorded. Obstetrics History GPAL:G 0 P 0 0 0 0 Past Encounters Encounter ID Performer Location Encounter Start Date Encounter Closed Date Diagnosis/Indication Diagnosis SNOMED-CT Code Diagnosis ICD10 Code Diagnosis Note [id number] Radha Foster MD [facility] [address] [phone] 02/26/2025 12:10:42 02/26/2025 19:21:42 Peripheral edema 698277808 R60.0 w/ cellulitis LLE-doubt DVT given no calf tenderness , no cords, negative Homans and patient is on Eliquis.Al lergies and pharmacy reviewed. Patient has had Augmentin before last Rx was 06/20/2024 according to the records I have available. Electrolyt es normal, patient is mildly hyperglyce marylu, renal function is better than previously creatinine was 1.62 on 01/05/2025 and her H&H is stable. Patient to continue torsemide 20 mg daily, will give 1 dose of Lasix IM as patient has no peripheral IV access per the medic Patient's weight today is 245.8 pounds I was able to find a note from February 2024 where she weighed 239 pounds-adv ised to take daily weights as an excellent marker of fluid gain or loss advise close follow-up with PCP. Advised to maintain low salt diet, elevate legs.to reduce edema. Patient and family reports that she needs more bacitracin -they have been using it to heal the ulcers and may continue to apply it sparingly to any erythemato us skin Patient is taking Percocet 5/325 every 6 hours for pain. Acute exac erbation of chronic obstructive pulmonary disease 520614123 J44.1 Status post neb sat 99% heart rate 71 and breath sounds clear- feels good/Needs to use 02 2lNC- sent in new albuterol mdi and nebulizer rx-patient 's nebulizer and her albuterol which may be outdated is at her daughters and she has run out of her albuterol MDI so new Rx sent. Advised using regularly will help with chronic dyspnea on exertion. Health Concerns Section Related Observation LastModified by Organization Detai ls LastModified Time None Recorded Concern Status LastModified by Organization Details LastModified Time None Recorded Payers Encounter Date Sequence Insurance Name Policy Number Policy Meza Covered Member ID Meza Member ID Guarantor Name 02/26/2025 1 [facility] - DOS ON OR AFTER 2022 - DUAL ELIGIBLE - FDC OPTIONS AND ONE CARE (MEDICARE REPLACEMENT/ADV ANTAGE - HMO) Mary Lou Cisneros [id number] Mary Lou Cisneros Notes Date Note Type Note Provider Name and Address Organization Details Recorded Time 02/27/20 25 text/ht ml ROS as noted in the HPI [facility] Nurse Triage Notes (Agustín Shipley): Reason For Request: 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 reporting discoloration changes in her legs (redness)Denies: Horowitz Flash, circumferential horowitz Horowitz reported with black tissue to the area Open skin area after a fall with uncontrolled bleeding Abscess/infection with streaking noted, presence of fever or without Chief Complaints: Extremity PainPMH: Hypertension, COPD/Asthma, Chronic Back Pain, Fibromyalgia, Osteoarthritis, OsteoporosisPMH Reviewed at 02/26/2025 - 10:35Allergies Reviewed at 02/26/2025 - 10:35Comments: 74 y.o female complains of Extremity PainPatient's PRODUCTION LAPPING MACHINE OPERATOR calling reporting patient is having red discoloration to L lower leg for the last two weeks. PRODUCTION LAPPING MACHINE OPERATOR reports this has happened before and the [...] to seek emergency care -Trip Shipley RN SEGMD: Per record review PMH includes:Agoraphobia with panic attacksBackacheCoronary atherosclerosisCandidiasis of vaginaCoughDepression with anxietyAtrial fibrillation on eliquisHypertensionGeneralized anxiety disorderHyperlipidemiaIngrowing toenailOnychomycosis of toenailPain in left armType 2 diabetes mellitus with diabetic autonomic (poly)neuropathy (CMS/HCC)Urinary tract infectious diseaseVaricose veins of lower extremityAbnormal gaitPain in left kneeLower extremity edemaModerate asthmaDyspnea on exertionEpigastric painExcessive cerumen in both ear canalsCellulitisAcquired hypothyroidismOSA (obstructive sleep apnea)Lumbar radiculopathy, chronicChronic bilateral low back pain with bilateral sciaticaVenous stasis dermatitisVenous insufficiencyMild CHF on Torsemide 20 mg dailyCKD 3B her BUN was 37 with creatinine 1.62 on 01/05/2025. She also has a history of anemia- her H&H on 08/02/2024 was 7.4 and 25.3 Poll Watcher Organization Information for Garrick El Josh Kap[employer] Legal Name: [facility] [place]. Address: [address] [place] [id number], Transcriptionist: Jhon Strickland MD CLIA No.: [id number] Poll Watcher POC Test Results from Berber[employer] shipman Josh BROUSSARD iSTAT Chem8+ (12:24:44) Na: 135 mEq/L K: 4.2 mEq/L Cl: 93 mEq/L iCa: 1.05 mmol/L TCO2: 32 mmol/L Glu: 264 mg/dL BUN: 23 mg/dL Crea: 1.4 mg/dL Hct: 24 % Hb: 8.2 g/dL A mmol/L Cartridge Number: [id number] Attachments uploaded as part of this test result can be found under Documents section. ................................. ................................. ................................. ................................. ......... Poll Watcher Note From BonnieramonitaEl: Encountered patient supine and conscious with family [...] popliteal pain or inflammation. BMP performed, values uploaded via [employer]. Skin warm, dry and of appropriate color [...] below the knee; peripheral pulses present throughout. [facility] contacted: reports they will treat patient for a suspected infection while also addressing possible fluid retention. Augmentin x1 administered. Albuterol neb treatment x1 administered. 40mg IM Furosemide administered. All medications administered after reconciling rights with patient and family. [facility] reports they will send a prescription for further treatment to a pharmacy of patients choice. Patient was encouraged to monitor herself for worsening symptoms including shortness of breath, chest pain or increased swelling; was urged to seek further medical care including 911 should said symptoms develop. Additionally, patient was advised to arrange a primary care appointment in order to follow-up on fluid status. Patient verbalizes understanding of the plan and states she is comfortable remaining home today. [facility] Lab Orders: BMP, serum or plasma: Performed [facility] Medication Orders: amoxicillin 500 mg-potassium clavulanate 125 mg tablet: Administered furosemide 10 mg/mL injection solution: Administered albuterol sulfate 2.5 mg/3 mL (0.083 %) solution for nebulization: Administered ................................. ................................. ................................. ................................. ......... [facility] Consulted: Radha Foster ................................. ................................. ................................. ................................. ......... Disposition: Fulfilled Radha Foster MD [address], [place], [address], [employer] 02/26/2025 18:08:10 OBGyn Episode No OBEpisode recorded.
--- NOTE | 2025-03-03 17:37 | ED.CHESTPAIN ---
HPI - Chest Pain General Chief Complaint: Chest Pain Stated Complaint: chest pain Time Seen by Provider: 03/03/25 17:35 Source: patient, EMS and RN notes reviewed Mode of arrival: EMS Limitations: no limitations History of Present Illness ED Provider: Nohemi Amado PA-C HPI narrative: 74-year-old female with medical history of CKD stage 3, type 2 diabetes, HLD, HTN, CAD, HfPef, osteoporosis, arthritis, asthma, fibromyalgia presents to the ED today due to chronic right arm pain, and chest pain. Patient reports chest pain yesterday while she was crying over the right shoulder pain. Patient states chest pain is more of a intense pressure, that was constant until she arrived to the emergency department and sensation of pressure resolved. Patient was seen in the department 2 months ago (01/05/2025) due to right shoulder pain and arthrocentesis was performed due to large joint effusion in the department. Patient states right arm pain has remained constant over the last 2 months. Additionally, patient states her abdomen has gotten larger over the last 2 months. Patient on 2 L oxygen nasal cannula at baseline. Denies fevers, chills, lightheadedness, dizziness, abdominal pain, nausea, vomiting, black/tarry stool, bloody emesis, Related Data Home Medications ?Medication ?Instructions ?Recorded ?Confirmed atorvastatin 80 mg tablet 80 mg PO BEDTIME 04/07/21 12/06/24 duloxetine 20 mg capsule,delayed 20 mg PO DAILY 03/18/24 12/06/24 release omeprazole 40 mg capsule,delayed 40 mg PO DAILY@0630 03/18/24 12/06/24 release aspirin 81 mg tablet,delayed 81 mg PO BEDTIME 06/11/24 12/06/24 release gabapentin 100 mg capsule 100 mg PO TID 06/11/24 12/06/24 oxycodone-acetaminophen 5 mg-325 1 tab PO Q6H PRN pain 06/11/24 12/06/24 mg tablet ketotifen fumarate 0.025 % (0.035 1 drp ophthalmic (eye) Q12H PRN 10/06/24 12/06/24 %) eye drops (Eye Itch Relief) Eye Irritation trazodone 150 mg tablet 150 mg PO BEDTIME 10/06/24 12/06/24 calcium carbonate (Oyster Shell 500 mg PO BID 12/06/24 12/06/24 Calcium 500) dulaglutide 1.5 mg/0.5 mL 1.5 mg subcut FR 12/06/24 12/06/24 subcutaneous pen injector (Trulicity) hydroxyzine HCl 25 mg tablet 25 mg PO Q8H PRN anxiety 12/06/24 12/06/24 insulin degludec 200 unit/mL (3 64 unit subcut DAILY 12/06/24 12/06/24 mL) subcutaneous pen (Tresiba FlexTouch U-200 insulin) loratadine 10 mg tablet 10 mg PO DAILY 12/06/24 12/06/24 melatonin 3 mg tablet 3 mg PO BEDTIME 12/06/24 12/06/24 Previous Rx's ?Medication ?Instructions ?Recorded apixaban 5 mg tablet (Eliquis) 5 mg PO BID #60 tabs 11/03/23 amlodipine 5 mg tablet 5 mg PO DAILY #30 tabs 06/20/24 torsemide 20 mg tablet 20 mg PO DAILY #30 tabs 06/20/24 ammonium lactate 12 % lotion 1 appl topical BID #400 grams 12/08/24 doxycycline monohydrate 100 mg 100 mg PO BID #14 caps 12/08/24 capsule levothyroxine 88 mcg capsule 88 mcg PO DAILY #90 caps 12/08/24 Allergies Allergy/AdvReac Type Severity Reaction Status Date / Time codeine (CODEINE) Allergy Intermediate HALLUCINATI Verified 03/03/25 16:36 ONS Review of Systems Review of Systems: CONST: Negative for fever, body aches and chills. HENT: Negative for neck pain/stiffness, headache, congestion, sore throat, swelling. EYES: Negative for discharge/pain or vision changes. RESP: Negative for cough/hemoptysis and shortness of breath. CV: Negative chest pain, difficulty breathing, palpitations. ABD: Negative pain, nausea, vomiting. : Negative increase frequency, dysuria, blood in urine or stool. MUSC: Negative for muscle aches, edema. POS R shoulder pain SKIN: Negative rash, lesions/sores. NEURO: Negative headache, dizziness, weakness. [facility] Past Medical History Medical History Anxiety Insomnia CKD (chronic kidney disease) CKD stage 3 due to type 2 diabetes mellitus Leg abrasion Abuse of non-prescription analgesics Type 2 diabetes mellitus with unspecified complications Other and unspecified hyperlipidemia Essential hypertension Atherosclerotic cardiovascular disease Urgency incontinence Osteoporosis Arthritis Asthma Hypertension Fibromyalgia Diabetes mellitus Surgical History History of hernia repair Social History Social History Household Members: Family Household Members Other:: friend Housing: Unknown / Unable to assess Do you presently have visiting nurse or other home services: Yes Unable to assess alcohol history related to: Unknown Alcohol intake: never 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 Patient Tobacco Use Status: Never used Tobacco Advance Directives: Yes Advance Directives on File: Yes Advance Directives Date on File: 04/07/24 service: No Sexual orientation: Straight/Heterosexual Physical Exam Vital Signs: Vital Signs: Last Vital Signs Temp 98.4 F 03/03/25 20:47 Pulse 65 03/03/25 20:47 Resp 21 H 03/03/25 20:47 BP 147/52 H 03/03/25 20:47 Pulse Ox 98 03/03/25 19:14 O2 Del Method Nasal Cannula 03/03/25 19:14 O2 Flow Rate 2 03/03/25 19:14 BMI result Body Mass Index 48.6 GENERAL APPEARANCE: ?AxOx3 chronically ill-appearing, very pale, disheveled and tired appearing, no acute distress. HEENT: ?NC, AT. MMM. EOMI, clear conjunctiva, pallor of the palpebral conjunctiva, oropharynx clear. NECK: ?Supple without lymphadenopathy.? No stiffness or restricted ROM. HEART:? Normal rate and regular rhythm, normal S1/S1, no m/r/g LUNGS:? No increased work of breathing, diminished lung sounds throughout lung brunson. Patient on 2 L oxygen nasal cannula at baseline ABDOMEN: Abdomen is very large, appears to be somewhat distended, patient states abdomen has grown in size over the last 2 months. Abdomen without evidence of fluid shift, nontender to deep palpation, hypoactive bowel sounds throughout all 4 quadrants. No overlying skin changes, negative for lama/badillo's ecchymosis. BACK: No CVAT, no obvious deformity. EXTREMITIES: ?Without cyanosis, clubbing or edema. Right shoulder with restricted ROM, SILT, strength 2/5 due to pain with movement, no warmth, erythema, edema, radial pulses 2+ bilaterally NEUROLOGICAL: ?Grossly nonfocal. Alert and oriented, moving all 4 extremities. Observed to ambulate with normal gait. Skin: ?Warm and dry without any rash. Medications Administered Discontinued Medications Generic Name Dose Route Start Last Admin Trade Name Elkin PRN Reason Stop Dose Admin Morphine Sulfate 4 mg 03/03/25 19:22 03/03/25 20:42 Morphine Sulfate 4 Mg/Ml Cartridge IVPUSH 03/03/25 19:23 4 mg ONCE ONE Administration Protocol Medical Decision Making Medical Decision Making MDM Narrative: 74-year-old female with medical history of CKD stage 3, type 2 diabetes, HLD, HTN, CAD, HfPef, osteoporosis, arthritis, asthma, fibromyalgia presents to the ED today due to chronic right arm pain, and chest pain. Patient reports chest pain yesterday while she was crying over the right shoulder pain. Patient states chest pain is more of a intense pressure, that was constant until she arrived to the emergency department and sensation of pressure resolved. Patient was seen in the department 2 months ago (01/05/2025) due to right shoulder pain and arthrocentesis was performed due to large joint effusion in the department. Patient states right arm pain has remained constant over the last 2 months. Additionally, patient states her abdomen has gotten larger over the last 2 months. Patient on 2 L oxygen nasal cannula at baseline. VSS, normotensive 136/53, pulse rate 66 beats per minute, 17 breaths per minute, oral temperature 99? degrees, O2 saturation 98% on 2 L O2 nasal cannula. On physical exam patient is very pale, with conjunctival pallor. Abdomen is very large, without evidence of fluid shift, nontender to deep palpation, no overlying skin changes. Cardiac exam reveals normal rate and rhythm, no murmurs/rub/gallops. No increased work of breathing, diminished breath sounds throughout lung brunson. Patient without evidence of fluid overload, no JVD, no pitting lower extremity edema. EKG shows accelerated junctional rhythm with occasional PVCs, possible Q-waves in V1 through V3. Patient without current chest pain, initial troponin 14.8, will obtain 2nd to observe for positive delta. Will obtain CT abdomen/pelvis to evaluate for possible GI bleed or mass, occult blood stool. Patient with severe pain of R shoulder. Patient shoulder imaged with XR and CT in the department 01/05/25 reveals severe osteoarthritic changes in the glenohumeral joint, with remodeling of the undersurface of the acromion suggesting full-thickness rotator cuff tear. I do not believe patient needs further imaging of her shoulder today, has not followed up with Orthopedics on these findings. Patient with severe pain, will medicate in the department with 4 mg morphine. Course 20:00- Labs reveal microcytic anemia (MCV 71.5), hemoglobin 6.3, hematocrit 22.1, creatinine is elevated at 1.44 however this is around patient's baseline as she has CKD stage 3, Random glucose is 370, patient's baseline hovers around high 200s, without gap- Plan to transfuse with 2 units at slow rate with 20mg furosemide between bags to decrease chance of fluid overload. CXR reveals cardiomegaly, BNP 337, no signs of fluid overload on physical exam. Awaiting CT abdomen/pelvis. 20:41- occult blood stool negative Differential Diagnosis Differential Diagnoses: The differential diagnosis associated with the presentation includes ACS Dysrhythmia Electrolyte imbalance GI bleed Abdominal mass Right shoulder osteoarthritis Right shoulder rotator cuff tear Admission/Observation Consideration of admission/observation: Escalation of care including admission/observation considered Consult Healthcare Provider Management of the patient was discussed with: Hospitalist (Dr. Knight) Lab Data MDM Lab Attestation statement: I reviewed the patient's lab results. 03/03/25 17:30 03/03/25 17:30 Labs: Lab Results 03/03/25 03/03/25 03/03/25 Range/Units 17:30 19:03 20:16 WBC 7.5 (4.8-10.8) X10*3/uL RBC 3.09 L (4.20-5.50) X10*6/uL Hgb 6.3 L* D (12.0-16.0) g/dl Hct 22.1 L D (37.0-47.0) % MCV 71.5 L (80.0-98.0) fL MCH 20.4 L (27.0-33.0) pg MCHC 28.5 L (31.0-35.0) g/dl RDW 17.1 H (11.0-16.0) % Plt Count 327 D (160-400) X10*3/uL MPV 10.0 (9.4-12.3) fL Immature Gran % (Auto) 1.1 H (0.0-0.4) % Neut % (Auto) 74.9 H (45-73) % Lymph % (Auto) 11.0 L (20-40) % Fountain % (Auto) 9.3 (2-11) % Eos % (Auto) 2.9 (0-4) % Baso % (Auto) 0.8 (0-2) % Lymph # (Auto) 0.8 L (1.2-4.9) X10*3/uL Fountain # (Auto) 0.7 (0.1-1.2) X10*3/uL Eos # (Auto) 0.2 (0.0-0.4) X10*3/uL Baso # (Auto) 0.1 (0.0-0.2) X10*3/uL Abs Immat Gran (auto) 0.08 H (0.00-0.03) X10*3/uL Absolute Neuts (auto) 5.6 (2.0-8.3) x10*3/uL Absolute Nucleated RBC 0.020 H (0.0-0.012) X10*3/uL Nucleated RBC % (auto) 0.3 H (0.0-0.2) /100WBC Sodium 135 (135-145) mmol/L Potassium 4.7 (3.3-5.1) mmol/L Chloride 96 (96-108) mmol/L Carbon Dioxide 30 H (22-29) mmol/L Anion Gap 14 (12-20) BUN 26 H (9-16) mg/dL Creatinine 1.44 H (0.5-1.4) mg/dL Estim Creat Clear Calc 38.6 Estimated GFR 35 Random Glucose 370 H* (60-115) mg/dL Calcium 7.9 L D (8.4-10.2) mg/dL Iron 10 L (30-160) mcg/dL TIBC 209 L (228-428) mcg/dL % Saturation 5 L (15-50) % Unsat Iron Binding 199 ug/dL Total Bilirubin 0.3 (0.0-1.0) mg/dL AST 17 (5-31) U/L ALT < 6 (0-31) U/L Alkaline Phosphatase 73 (39-117) U/L Troponin I High Sens 14.8 D 17.0 (<3.5-17.0) ng/L B-Natriuretic Peptide 337 H (<100) pg/mL Total Protein 6.7 (6.5-8.0) g/dL Albumin 2.8 L (3.5-5.0) g/dL Stool Occult Blood NEGATIVE (NEGATIVE) Blood Type A Positive Antibody Screen NEGATIVE Crossmatch See Detail Independent Interpretation I performed an independent interpretation of an: EKG and Plain X-Ray Interpretation: I personally interpreted the EKG Which shows accelerated junctional rhythm, possible Q-waves in V1 through V3 Vent. Rate : 73 BPM Atrial Rate : * BPM P-R Int : * ms QRS Dur : 82 ms QT Int : 406 ms P-R-T Axes : * -12 24 degrees QTcB Int : 447 ms Accelerated Junctional rhythm with occasional Premature ventricular complexes Possible Anterior infarct (cited on or before 02-Aug-2024) Abnormal ECG When compared with ECG of 06-Dec-2024 04:03, Junctional rhythm has replaced Sinus rhythm CXR- cardiomegaly, without pulmonary edema, without pleural effusions, without infiltrates, I agree with the radiologist's interpretation Radiology Impression Discussion of test interpretation with radiology: I have reviewed the radiologist's reading. Radiologist Impression: CXR Findings: Cardiomegaly. Normal mediastinal contours. No pneumothorax. No opacity. No pleural effusion. Normal upper abdomen. No acute fracture. Impression: No acute findings. This document has been electronically signed by: Amanda Forbes MD on 03/03/2025 18:57:10 Dictated By: Amanda Pagan MD Signed By: <Electronically signed by Amanda Pagan MD in OV> 03/03/[address] abdomen/pelvis External Record Review External record reviewed: Inpatient record, Office record and Outpatient record Chronic Conditions Patient?s care impacted by: Diabetes, Hypertension and Other (CKD stage 3, osteoarthritis, fibromyalgia, HLD, HfPeF) Critical Care Time Critical Care Time Total Critical Care Time: 63 Attestation: I personally provided 63 minutes of critical care time for this patient, exclusive of separately billable procedures and time spent by other providers. This time was required for the management of anemia and included initial assessment and frequent reassessments, review and interpretation of diagnostic studies, hemodynamic management, coordination and communication with consultants in the nursing staff, and ongoing documentation and complex medical decision-making. Discharge Plan Discharge Clinical Impression: Anemia Prescriptions: No Action atorvastatin 80 mg tablet 80 mg PO BEDTIME Eliquis 5 mg Tablet 5 mg PO BID Qty: 60 0RF omeprazole 40 mg capsule,delayed release(DR/EC) 40 mg PO DAILY@0630 duloxetine 20 mg capsule,delayed release(DR/EC) 20 mg PO DAILY melatonin 3 mg tablet 3 mg PO BEDTIME calcium carbonate [Oyster Shell Calcium 500] 500 mg calcium (1,250 mg) tablet 500 mg PO BID hydroxyzine HCl 25 mg tablet 25 mg PO Q8H PRN (Reason: anxiety) insulin degludec [Tresiba FlexTouch U-200] 200 unit/mL (3 mL) insulin pen 64 unit subcut DAILY loratadine 10 mg Tablet 10 mg PO DAILY Trulicity 1.5 mg/0.5 mL pen injector 1.5 mg subcut FR ammonium lactate 12 % Lotion 1 appl topical BID Qty: 400 0RF Protocol: Apply to: Apply to: bilateral lower extremities Rx Instructions: lower extremities doxycycline monohydrate 100 mg capsule 100 mg PO BID Qty: 14 0RF levothyroxine 88 mcg capsule 88 mcg PO DAILY Qty: 90 0RF aspirin 81 mg tablet,delayed release (DR/EC) 81 mg PO BEDTIME oxycodone-acetaminophen 5-325 mg tablet 1 tab PO Q6H PRN (Reason: pain) gabapentin 100 mg capsule 100 mg PO TID torsemide 20 mg tablet 20 mg PO DAILY Qty: 30 0RF amlodipine 5 mg Tablet 5 mg PO DAILY Qty: 30 0RF Protocol: Hold for SBP< HOLD for SBP < : 90 ketotifen fumarate [Eye Itch Relief] 0.025 % (0.035 %) drops 1 drp ophthalmic (eye) Q12H PRN (Reason: Eye Irritation) trazodone 150 mg tablet 150 mg PO BEDTIME Print Language: Liberian
[2025-03-03 17:38] LABS: MANUAL DIFF FLAG NO
[2025-03-03 17:39] LABS: Hematocrit 22.1 % (37.0-47.0); Imm Gran Abs Auto 0.08 X10*3/uL (0.00-0.03); Imm Gran Pct Auto 1.1 % (0.0-0.4); Lymphocytes Absolute Auto 0.8 X10*3/uL (1.2-4.9); Mean Corpuscular HGB Conc 28.5 g/dl (31.0-35.0); Mean Corpuscular Hemoglobin 20.4 pg (27.0-33.0); Mean Corpuscular Volume 71.5 fL (80.0-98.0); NRBC Abs Auto 0.020 X10*3/uL (0.0-0.012); NRBC Pct Auto 0.3 /100WBC (0.0-0.2); Platelet Count 327 X10*3/uL (160-400); Red Blood Count 3.09 X10*6/uL (4.20-5.50); White Blood Count 7.5 X10*3/uL (4.8-10.8)
[2025-03-03 17:45] LABS: Hemoglobin 6.3 g/dl (12.0-16.0)
[2025-03-03 17:58] LABS: B Type Natriuretic Peptide 337 pg/mL (<100)
--- NOTE | 2025-03-03 17:58 | PC.NURSE ---
Pt arrived by EMS for reports of chest pain, pt reports now resolved. Now reporting right shoulder -05/18. A/O x 3, #20 in right hand. Labs collected and sent.
[2025-03-03 18:00] LABS: Alanine Aminotransferase < 6 U/L (0-31); Albumin Level 2.8 g/dL (3.5-5.0); Alkaline Phosphatase 73 U/L (39-117); Anion Gap 14 (12-20); Aspartate Amino Transferase 17 U/L (5-31); Blood Urea Nitrogen 26 mg/dL (9-16); Calcium 7.9 mg/dL (8.4-10.2); Carbon Dioxide 30 mmol/L (22-29); Chloride 96 mmol/L (96-108); Creatinine Clr Calc Pharmacy 38.6; Estimated Glomerular Filt Rate 35; Potassium 4.7 mmol/L (3.3-5.1); Sodium 135 mmol/L (135-145); Total Protein 6.7 g/dL (6.5-8.0)
[2025-03-03 18:01] LABS: Troponin-I High Sensitivity 14.8 ng/L (<3.5-17.0)
[2025-03-03 20:23] LABS: OBS Int Ctl Valid YES; OBS1 NEGATIVE (NEGATIVE)
[2025-03-03 20:35] LABS: Iron 10 mcg/dL (30-160); Percent Iron Saturation 5 % (15-50); Total Iron Binding Capacity 209 mcg/dL (228-428); Unsaturated Iron Binding 199 ug/dL
[2025-03-03 20:43] LABS: Troponin-I High Sensitivity 17.0 ng/L (<3.5-17.0)
--- NOTE | 2025-03-03 21:30 | PM.IMHP ---
History of Present Illness Date of Service: 03/03/25 Attending physician on admission: Becky Knight Chief Complaint: R shoulder pain, abdominal distension hide and skin classer used for interview Patient is a 74-year-old female, welsh speaking only with past medical history CKD stage 3, IDDM, ANILA not on CPAP, AFIB on Eliquis, HLD, HTN, Hypothyroidism, CAD, osteoporosis, HFpEF, mild aortic stenosis, arthritis, asthma, fibromyalgia, right rotator cuff tear, recent right shoulder effusion cultures negative status post aspiration, ventral hernia repair with mesh, presents to the emergency room with complaints initially of right-sided chest pain/shoulder pain that progressively got worse throughout the day and patient called 911. Pain in the right shoulder was so bad that patient was crying. Upon arrival to the ED the pain and sensation of pressure resolved. In addition patient reports that her abdomen has gotten grossly larger in the last 2 months. Patient is on Trulicity. Pt stopped her trulicity 2 weeks ago per her provider because she was having GI symptoms. Patient does use oxygen at home for her CHF and is normally on a baseline of 2 L nasal cannula. Patient has no history of smoking or secondhand smoke exposure. Patient denies any bloody/ tarry stool, nausea or vomiting. Patient denies any loss of appetite. Patient is normally wheelchair-bound with profound neuropathy. Patient does not receive PT at home. Patient also offers that she is chronically incontinent of urine. In the emergency room patient's hemoglobin 6.3 and hematocrit 22.1. Patient is on Eliquis. Patient does have evidence of iron deficiency. Patient was started on 2 units PRBCs transfused slowly noting history of heart failure. Patient will receive Lasix in between. Iron levels low. Stool for occult initially negative. CT of the abdomen and pelvis notes dysmotility vs enteritis, no bowel obstruction noted. Chest x-ray negative for any acute findings. Patient denies history of ever having a colonoscopy or upper scope. Patient does have mild GERD symptoms at this time. Patient continues to have right shoulder pain with noted right rotator cuff tear history. Patient has a unable to lift her arm above shoulder height. There is no warmth or swelling noted at the right shoulder joint. Patient can tolerate passive range of motion. Patient was treated in December of 2024 for right shoulder effusion. Her cultures came back negative. It does not appear that patient followed up with orthopedics status post that admission. Incidentally labs note a subclinical hypothyroidism presentation with a TSH of 10.41 and a FT4 0.88. UA with reflex is currently pending as patient reports ongoing issues with incontinence and sometimes burning with urination. Review of Systems Review of Systems: Patient currently denies any chest pain, shortness of breath at rest, abdominal pain or nausea and vomiting. Patient does have chronic issues with constipation. Patient is having mild GERD like symptoms at this time. Patient denies any open wounds or skin problems. Patient states she is wheelchair-bound at home. Yes all other systems are reviewed and are negative [facility] Medical History (Updated 03/03/25 @ 23:32 by TOD Peter) Urinary incontinence (HFpEF) heart failure with preserved ejection fraction Anxiety Insomnia CKD (chronic kidney disease) CKD stage 3 due to type 2 diabetes mellitus Leg abrasion Abuse of non-prescription analgesics Type 2 diabetes mellitus with unspecified complications Other and unspecified hyperlipidemia Essential hypertension Atherosclerotic cardiovascular disease Urgency incontinence Osteoporosis Arthritis Asthma Hypertension Fibromyalgia Diabetes mellitus Cognitive capacity: Alert and orientated x3 Functional capacity: wheelchair bound Patient : No Surgical History (Updated 03/03/25 @ 23:08 by TOD Peter) H/O tubal ligation History of hernia repair Social History Household Members: Family Household Members Other:: friend Housing: Unknown / Unable to assess Do you presently have visiting nurse or other home services: Yes Unable to assess alcohol history related to: Unknown Alcohol intake: never 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 Patient Tobacco Use Status: Never used Tobacco Advance Directives: Yes Advance Directives on File: Yes Advance Directives Date on File: 04/07/24 Patient : No service: No Sexual orientation: Straight/Heterosexual Ebola Risk: Travel/Contact With Anyone From Affected Area/s: No Has Patient Experienced Ebola Symptoms: No Meds Allergies Allergy/AdvReac Type Severity Reaction Status Date / Time codeine (CODEINE) Allergy Intermediate HALLUCINATI Verified 03/03/25 16:36 ONS Home Medications ?Medication ?Instructions ?Recorded ?Confirmed ?Last Taken ?Type atorvastatin 80 mg tablet 80 mg PO BEDTIME 04/07/21 12/06/24 10/05/24 History duloxetine 20 mg capsule,delayed 20 mg PO DAILY 03/18/24 12/06/24 04/05/24 History release omeprazole 40 mg capsule,delayed 40 mg PO DAILY@0630 03/18/24 12/06/24 10/06/24 History release aspirin 81 mg tablet,delayed 81 mg PO BEDTIME 06/11/24 12/06/24 10/06/24 History release gabapentin 100 mg capsule 100 mg PO TID 06/11/24 12/06/24 10/06/24 History oxycodone-acetaminophen 5 mg-325 1 tab PO Q6H PRN pain 06/11/24 12/06/24 10/06/24 History mg tablet ketotifen fumarate 0.025 % (0.035 1 drp ophthalmic (eye) Q12H PRN 10/06/24 12/06/24 Unknown History %) eye drops (Eye Itch Relief) Eye Irritation trazodone 150 mg tablet 150 mg PO BEDTIME 10/06/24 12/06/24 10/05/24 History calcium carbonate (Oyster Shell 500 mg PO BID 12/06/24 12/06/24 Unknown History Calcium 500) dulaglutide 1.5 mg/0.5 mL 1.5 mg subcut FR 12/06/24 12/06/24 Unknown History subcutaneous pen injector (Trulicity) hydroxyzine HCl 25 mg tablet 25 mg PO Q8H PRN anxiety 12/06/24 12/06/24 Unknown History insulin degludec 200 unit/mL (3 64 unit subcut DAILY 12/06/24 12/06/24 Unknown History mL) subcutaneous pen (Tresiba FlexTouch U-200 insulin) loratadine 10 mg tablet 10 mg PO DAILY 12/06/24 12/06/24 Unknown History melatonin 3 mg tablet 3 mg PO BEDTIME 12/06/24 12/06/24 Unknown History Physical Exam Vital Signs and Narrative: Vital Signs: Last Vital Signs Temp 98.8 F 03/03/25 21:04 Pulse 65 03/03/25 21:04 Resp 22 H 03/03/25 21:04 BP 150/64 H 03/03/25 21:04 Pulse Ox 98 03/03/25 19:14 O2 Del Method Nasal Cannula 03/03/25 19:14 O2 Flow Rate 2 03/03/25 19:14 BMI result Body Mass Index 48.6 Alert and orientated X3, able to give good history. Interpretter used. Neuro: CN II-X11 intact, no deficits, visual acuity intact EYES: PERRLA, EOM intact, sclerae nonicteric, conjunctiva pale ENT: hearing intact, no issues with swallowing, uvula midline, lips moist, nares patent no epistaxis Cardiac: S1 S2 RRR, III/ systolic murmur, no JVD, no edema in Lower ext Pulmonary: lungs diminished bilaterally Abdominal: BS hypoactive in all 4 quadrants, no guarding, tenderness, rebounding, distended and morbidly obese MSK: strength 4/5 L upper and lower extremities, 2/5 RUE patient is unable to lift right arm above left shoulder height : no CVA tenderness no bladder distension Extremities: no edema in lower extremities, PT and DP pulses palpable +2 Psych: mood stable, judgement and insight good Skin: Intact, no report of new open wounds Results Labs 03/03/25 17:30 03/03/25 17:30 Labs: Laboratory Results - last 24 hr 03/03/25 03/03/25 03/03/25 17:30 19:03 20:16 MCV 71.5 L MCH 20.4 L MCHC 28.5 L RDW 17.1 H Plt Count 327 D MPV 10.0 Immature Gran % (Auto) 1.1 H Neut % (Auto) 74.9 H Lymph % (Auto) 11.0 L [place] % (Auto) 9.3 Eos % (Auto) 2.9 Baso % (Auto) 0.8 Lymph # (Auto) 0.8 L [place] # (Auto) 0.7 Eos # (Auto) 0.2 Baso # (Auto) 0.1 Abs Immat Gran (auto) 0.08 H Absolute Neuts (auto) 5.6 Absolute Nucleated RBC 0.020 H Nucleated RBC % (auto) 0.3 H Anion Gap 14 Estim Creat Clear Calc 38.6 Estimated GFR 35 Random Glucose 370 H* Calcium 7.9 L D Iron 10 L TIBC 209 L % Saturation 5 L Unsat Iron Binding 199 Total Bilirubin 0.3 AST 17 ALT < 6 Alkaline Phosphatase 73 B-Natriuretic Peptide 337 H Total Protein 6.7 Albumin 2.8 L Stool Occult Blood NEGATIVE Blood Type A Positive Antibody Screen NEGATIVE Crossmatch See Detail ECG Attestation: I personally reviewed and interpreted this ECG as follows: Imaging Radiologist's Impressions: CT ABD PELVIS IMPRESSION: FINDINGS: Detail limited by artifacts. Small bilateral pleural effusions with adjacent atelectasis and/or infiltrates. Cardiomegaly. Normal liver. Normal spleen. Bilateral renal cysts. No hydronephrosis. Normal adrenal glands. Normal pancreas. Cholelithiasis. No CT evidence of acute cholecystitis. No biliary dilation. Air-fluid levels in nondistended small bowel. No mucosal thickening. No evidence of obstruction. No visible intraluminal IV contrast extravasation in the GI tract at the time of the study. No evidence of acute appendicitis. Unremarkable bladder. Calcified uterine fibroids. No ascites. No pneumoperitoneum. No lymphadenopathy. No acute fracture. Degenerative changes in the spine. No abdominal aortic aneurysm. Status post ventral herniorrhaphy with mesh. Anasarca. Air-fluid levels in nondistended small bowel, which could be due to enteritis or dysmotility. Anasarca. Small bilateral pleural effusions with adjacent atelectasis and/or infiltrates. Nonemergent/incidental findings above. Assessment and Plan (1) Acute anemia: Status: Acute Plan Patient is a 74-year-old female with past medical history CKD stage 3, IDDM, ANILA not on CPAP, AFIB on Eliquis, HLD, HTN, Hypothyroidism, CAD, osteoporosis, HFpEF, arthritis, asthma, fibromyalgia, right rotator cuff tear, recent right shoulder effusion cultures negative status post aspiration, ventral hernia repair with mesh, presents to the emergency room with complaints initially of right-sided chest pain/shoulder pain that progressively got worse throughout the day and patient called 911. Incidentally H&H was 6.3 and 22.1. Patient received transfusion PRBCs in the ED. iron level severely low. Stool for occult negative. CT of the abdomen negative for small bowel obstruction but noted for dysmotility versus enteritis as patient is on Trulicity. Patient being admitted for the following medical problems: Acute Anemia/ NANCY/ ? GIB GI consulted 2 units of PRBCs with 40 of Lasix in between administered without reaction or complication Repeat CBC 1-2 hours after last unit of blood NPO Protonix 40 IV b.i.d. Hold Eliquis Iron levels low, await GI evaluation for possible IV iron therapy Patient has no history of colonoscopy or EGD Dysmotility due to GLP-1 vs Enteritis Patient was told to stop her Trulicity 2 weeks ago per her PCP as she was symptomatic with GI symptoms, nonspecific Currently patient denies any diarrhea, abdominal pain or nausea and vomiting - Last BM 2 days ago Patient is currently NPO Dulcolax suppository prn Chest pain/ Accelerated junctional rhythm We will repeat EKG after blood transfusions are completed - no ischemic changes noted Magnesium 1.9 Telemetry Chest pain currently resolved, troponin negative HFpEF/ III/ systolic murmur - hx of mild aortic stenosis/ HX of mild asc aortic dilitation BNP 337 ECho ordered, last echo 06/2023 Lasix 40 IV between 2 units of blood Pt normally on torsemide 20 mg daily Daily wts, Fluid allowance 1500 once no longer NPO, strict I/Os R shoulder pain/ Recent R shoulder Effusison/ Rotator Cuff Tear (chronic) No evidence of effusion on exam, Shoulder xray ordered May be due to rotator cuff issue, will need ortho follow up as an outpatient if no acute findings this admission Avoiding NSAIDS due to possible GIB Tylenol/ morphine for pain Ice prn IDDM SSI for NPO status Pt's PCP stopped trulicity 2 weeks prior due to GI symptoms Hypothyroidism on Levothyroxine TSH 10.41, FT4 0.88 Pt normally on 88 mcg daily, does take 30 mins before eating. Increasing po dose to 100 mcg daily, recheck labs in 6 weeks Because pt is NpO currently, administering 50 mcg IV daily until cleared to eat Morbid Obesity/ WC bound Nutritional consultation ordered Pt cannot tolerate GLP-1 medications PT EVAL DVT prophylaxis: Eliquis held due to suspected GI bleed Med rec pending Full Code status Quality Stroke Does the patient have a stroke diagnosis?: No Reason for No Anti-thrombotic by Day Two: Contraindicated VTE Prior VTE?: No VTE Risk Level:: Medical - moderate - high VTE Device Contraindication: N/A - Device Ordered VTE Drug Contraindication: Treatment Not Indicated
[2025-03-03 22:09] LABS: Magnesium 1.9 mg/dL (1.6-2.6)
[2025-03-03 22:23] LABS: Free T4 (Free Thyroxine) 0.88 ng/dL (0.71-1.85); Thyroid Stimulating Hormone 10.41 uIU/mL (0.32-4.0)
[2025-03-03 22:28] LABS: Venous Blood Gas Refer to POC result
[2025-03-03 22:30] LABS: VBG HCO3 39 mmol/L (22-26)
--- NOTE | 2025-03-03 22:59 | MHC.EDTECH ---
@[id number] patient used her call jacome to inform this tech with sign language interpreter she had wet herself. This tech gathered supplies, came back and cleaned up the patient, Change the bedding, laid down new bed pads, and applied a pure wick Per RN. The patient has been boosted and repositioned for comfort, resting in a semi looney position, call jacome in hand, and personal belongings in arms reach.
--- NOTE | 2025-03-03 23:27 | PC.NURSE ---
per hospitalist SPORTS CARTOONIST okay to start cont. IVF after blood
[2025-03-03 23:45] LABS: Glucose, Whole Blood 231 mg/dL (60-115)
[2025-03-03] MEDS: Furosemide 40 MG/4 ML VIAL IVPUSH (23:55)
[2025-03-04] VITALS (9 sets, daily range): BP systolic 136–178; BP diastolic 54–86; PULSE 59–67; RESP 14–20; TEMP 36.2–36.9; O2SAT 94–100; BMI 48.0
[2025-03-04 02:04] LABS: Glucose, Whole Blood 220 mg/dL (60-115)
[2025-03-04 04:47] LABS: Appearance Urine Clear; Glucose Urine UA Negative (Negative); PH 7.0 (5.0-9.0); Specific Gravity - Urine 1.010 (1.005-1.025)
[2025-03-04 06:03] LABS: Glucose, Whole Blood 151 mg/dL (60-115)
[2025-03-04 06:05] LABS: MANUAL DIFF FLAG NO
[2025-03-04 06:08] LABS: Hematocrit 29.3 % (37.0-47.0); Hemoglobin 8.5 g/dl (12.0-16.0); Imm Gran Abs Auto 0.12 X10*3/uL (0.00-0.03); Imm Gran Pct Auto 1.4 % (0.0-0.4); Lymphocytes Absolute Auto 1.0 X10*3/uL (1.2-4.9); Mean Corpuscular HGB Conc 29.0 g/dl (31.0-35.0); Mean Corpuscular Hemoglobin 22.1 pg (27.0-33.0); Mean Corpuscular Volume 76.1 fL (80.0-98.0); NRBC Abs Auto 0.050 X10*3/uL (0.0-0.012); NRBC Pct Auto 0.6 /100WBC (0.0-0.2); Platelet Count 343 X10*3/uL (160-400); Red Blood Count 3.85 X10*6/uL (4.20-5.50); White Blood Count 8.4 X10*3/uL (4.8-10.8)
[2025-03-04 07:06] LABS: Alanine Aminotransferase < 6 U/L (0-31); Albumin Level 2.8 g/dL (3.5-5.0); Alkaline Phosphatase 75 U/L (39-117); Anion Gap 13 (12-20); Aspartate Amino Transferase 17 U/L (5-31); Blood Urea Nitrogen 22 mg/dL (9-16); Calcium 8.4 mg/dL (8.4-10.2); Carbon Dioxide 32 mmol/L (22-29); Chloride 97 mmol/L (96-108); Creatinine Clr Calc Pharmacy 44.5; Estimated Glomerular Filt Rate 42; Potassium 4.5 mmol/L (3.3-5.1); Sodium 137 mmol/L (135-145); Total Protein 6.5 g/dL (6.5-8.0)
--- NOTE | 2025-03-04 07:08 | P.PNIM_ITS ---
Subjective Subjective Date of Service: 03/04/25 Interval History: f/u GIB, acute blood loss anemia interval history: H/H better after transfusion chest pain resolved. Physical Exam 2 Vital Signs: Vital Signs: Last Vital Signs Temp 97.4 F 03/04/25 03:48 Pulse 61 03/04/25 03:48 Resp 14 03/04/25 03:48 BP 146/86 H 03/04/25 03:48 Pulse Ox 100 03/04/25 03:09 O2 Del Method Nasal Cannula 03/04/25 03:09 O2 Flow Rate 3 03/04/25 03:09 BMI result Body Mass Index 48.0 .ex Const: Other: General: AO X 3, no acute distress Resp: CTA bilateral CVS: S1,S2,RRR GI: +BS, NT, no distention Skin: No rash Neuro: motor grossly intact Psych: appropriate affect Objective Data Active Medications Acetaminophen (Acetaminophen 325 Mg Tablet) 650 mg PO Q6H PRN PRN Reason: Pain, Mild 1-3,fever,headache Albuterol/Ipratropium (Albuterol/Iprat 2.5/0.5mg 3 Ml Ampul.Neb) 3 ml INHALE Q4H PRN PRN Reason: Shortness of Breath/Wheezing Bisacodyl (Bisacodyl 10 Mg Supp.Rect) 10 mg SD BEDTIME PRN PRN Reason: Constipation Calcium Carbonate (Calcium Carbonate 750 Mg Tab.Chew) 750 mg PO Q4H PRN PRN Reason: Heartburn Dextrose (Dextrose 50 % 25 Gm/50 Ml Syringe) 25 gm IVPUSH Q15M PRN; Protocol PRN Reason: per Hypoglycemia Standing Ord. Glucose (Glucose Gel 15 Gm Gel..Gram.) 15 gm PO Q15M PRN; Protocol PRN Reason: per Hypoglycemia Standing Ord. Insulin Human Lispro (Insulin Lispro 100 Unit/Ml 3 Ml Vial) 0 unit SUBCUT Q6H [facility]; Protocol Last Admin: 03/04/25 06:30 Dose: 2 unit Documented By: MÓNICA Levothyroxine Sodium (Levothyroxine Sodium 100 Mcg/5 Ml Vial) 50 mcg IVPUSH DAILY@0630 [facility] Last Admin: 03/04/25 06:31 Dose: 50 mcg Documented By: MÓNICA Magnesium Hydroxide (Milk Of Magnesia 30 Ml Oral.Susp) 30 ml PO DAILY PRN PRN Reason: Constipation Morphine Sulfate (Morphine Sulfate 2 Mg/Ml Cartridge) 2 mg IVPUSH Q4H PRN; Protocol PRN Reason: Pain, Severe (Pain Scale 7-10) Last Admin: 03/04/25 04:10 Dose: 2 mg Documented By: MÓNICA Ondansetron HCl (Ondansetron Hcl 4 Mg/2 Ml Vial) 4 mg IVPUSH Q8H PRN PRN Reason: Nausea and Vomiting Pantoprazole Sodium (Pantoprazole Sodium 40 Mg/10 Ml Vial) 40 mg IVPUSH BID@0630,1630 [facility] Last Admin: 03/04/25 06:30 Dose: 40 mg Documented By: MÓNICA Polyethylene Glycol (Polyethylene Glycol 3350 17 Gm Powd.Pack) 17 gm PO DAILY PRN PRN Reason: Constipation Sodium Chloride (0.9 % Sodium Chloride Flush 3 Ml Syringe) 3 ml IVFLUSH QSHIFT [facility] Last Admin: 03/04/25 02:47 Dose: Not Given Documented By: MÓNICA Non-Admin Reason: IV Running Labs 03/04/25 05:55 03/04/25 05:55 Labs: Laboratory Results - last 24 hr 03/03/25 03/03/25 03/03/25 17:30 19:03 20:16 MCV 71.5 L MCH 20.4 L MCHC 28.5 L RDW 17.1 H Plt Count 327 D MPV 10.0 Immature Gran % (Auto) 1.1 H Neut % (Auto) 74.9 H Lymph % (Auto) 11.0 L [place] % (Auto) 9.3 Eos % (Auto) 2.9 Baso % (Auto) 0.8 Lymph # (Auto) 0.8 L [place] # (Auto) 0.7 Eos # (Auto) 0.2 Baso # (Auto) 0.1 Abs Immat Gran (auto) 0.08 H Absolute Neuts (auto) 5.6 Absolute Nucleated RBC 0.020 H Nucleated RBC % (auto) 0.3 H VBG pH VBG pCO2 VBG pO2 VBG HCO3 VBG O2 Saturation VBG Base Excess Anion Gap 14 Estim Creat Clear Calc 38.6 Estimated GFR 35 POC Glucose Random Glucose 370 H* Lactic Acid Calcium 7.9 L D Phosphorus 3.1 Magnesium 1.9 Iron 10 L TIBC 209 L % Saturation 5 L Unsat Iron Binding 199 Total Bilirubin 0.3 AST 17 ALT < 6 Alkaline Phosphatase 73 B-Natriuretic Peptide 337 H Total Protein 6.7 Albumin 2.8 L TSH 10.41 H Free T4 0.88 Urine Color Urine Appearance Urine pH Ur Specific [place] Urine Protein Urine Glucose (UA) Urine Ketones Urine Blood Urine Nitrite Ur Leukocyte Esterase Stool Occult Blood NEGATIVE Blood Type A Positive Antibody Screen NEGATIVE Crossmatch See Detail 03/03/25 03/03/25 03/03/25 22:10 22:14 23:40 MCV MCH MCHC RDW Plt Count MPV Immature Gran % (Auto) Neut % (Auto) Lymph % (Auto) [place] % (Auto) Eos % (Auto) Baso % (Auto) Lymph # (Auto) [place] # (Auto) Eos # (Auto) Baso # (Auto) Abs Immat Gran (auto) Absolute Neuts (auto) Absolute Nucleated RBC Nucleated RBC % (auto) VBG pH 7.44 H VBG pCO2 58 VBG pO2 43 VBG HCO3 39 H VBG O2 Saturation TNP VBG Base Excess 13.9 Anion Gap Estim Creat Clear Calc Estimated GFR POC Glucose 231 H Random Glucose Lactic Acid 1.0 Calcium Phosphorus Magnesium Iron TIBC % Saturation Unsat Iron Binding Total Bilirubin AST ALT Alkaline Phosphatase B-Natriuretic Peptide Total Protein Albumin TSH Free T4 Urine Color Urine Appearance Urine pH Ur Specific [place] Urine Protein Urine Glucose (UA) Urine Ketones Urine Blood Urine Nitrite Ur Leukocyte Esterase Stool Occult Blood Blood Type Antibody Screen Crossmatch 03/04/25 03/04/25 03/04/25 01:58 03:59 05:55 MCV 76.1 L MCH 22.1 L MCHC 29.0 L RDW 18.6 H Plt Count 343 MPV 10.1 Immature Gran % (Auto) 1.4 H Neut % (Auto) 70.1 Lymph % (Auto) 11.9 L [place] % (Auto) 11.7 H Eos % (Auto) 4.0 Baso % (Auto) 0.9 Lymph # (Auto) 1.0 L [place] # (Auto) 1.0 Eos # (Auto) 0.3 Baso # (Auto) 0.1 Abs Immat Gran (auto) 0.12 H Absolute Neuts (auto) 5.9 Absolute Nucleated RBC 0.050 H Nucleated RBC % (auto) 0.6 H VBG pH VBG pCO2 VBG pO2 VBG HCO3 VBG O2 Saturation VBG Base Excess Anion Gap 13 Estim Creat Clear Calc 44.5 Estimated GFR 42 POC Glucose 220 H Random Glucose 191 H Lactic Acid Calcium 8.4 D Phosphorus Magnesium Iron TIBC % Saturation Unsat Iron Binding Total Bilirubin 0.9 AST 17 ALT < 6 Alkaline Phosphatase 75 B-Natriuretic Peptide Total Protein 6.5 Albumin 2.8 L TSH Free T4 Urine Color Yellow Urine Appearance Clear Urine pH 7.0 Ur Specific [place] 1.010 Urine Protein Negative Urine Glucose (UA) Negative Urine Ketones Negative Urine Blood Negative Urine Nitrite Negative Ur Leukocyte Esterase Negative Stool Occult Blood Blood Type Antibody Screen Crossmatch 03/04/25 05:59 MCV MCH MCHC RDW Plt Count MPV Immature Gran % (Auto) Neut % (Auto) Lymph % (Auto) [place] % (Auto) Eos % (Auto) Baso % (Auto) Lymph # (Auto) [place] # (Auto) Eos # (Auto) Baso # (Auto) Abs Immat Gran (auto) Absolute Neuts (auto) Absolute Nucleated RBC Nucleated RBC % (auto) VBG pH VBG pCO2 VBG pO2 VBG HCO3 VBG O2 Saturation VBG Base Excess Anion Gap Estim Creat Clear Calc Estimated GFR POC Glucose 151 H Random Glucose Lactic Acid Calcium Phosphorus Magnesium Iron TIBC % Saturation Unsat Iron Binding Total Bilirubin AST ALT Alkaline Phosphatase B-Natriuretic Peptide Total Protein Albumin TSH Free T4 Urine Color Urine Appearance Urine pH Ur Specific [place] Urine Protein Urine Glucose (UA) Urine Ketones Urine Blood Urine Nitrite Ur Leukocyte Esterase Stool Occult Blood Blood Type Antibody Screen Crossmatch Assessment and Plan (1) Acute blood loss anemia: Status: Acute Plan 4-year-old female with past medical history CKD stage 3, IDDM, ANILA not on CPAP, AFIB on Eliquis, HLD, HTN, Hypothyroidism, CAD, osteoporosis, HFpEF, arthritis, asthma, fibromyalgia, right rotator cuff tear, recent right shoulder effusion cultures negative status post aspiration, ventral hernia repair with mesh, presented with chest pain and found to have profound anemia Hgb of 6 on Eliquis. Acute blood loss anemia, Iron deficiency, concern for GIB, on eliquis Transfused 2 units Hgb 6.3-->8.5 IV PPI GI consult, will likely need EGD and colonoscopy Hold Eliquis IV Iron clear liquid diet today Chest Pain, Atypical, negative troponin ? related to above--resolved hold further testing at this time Chronic AFIB..rate controlled. 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-[address] no obstruction Trullicity stopped 2 weeks ago Patient was told to stop her Trulicity HFpEF/ III/ systolic murmur - hx of mild aortic stenosis/ HX of mild asc aortic dilitation, presently euvolemic hold continue home diuretic R shoulder pain/ Recent R shoulder Effusison/ Rotator Cuff Tear (chronic) Outptient follow up IDDM SSI, Diabetic diet Hypothyroidism on Levothyroxine TSH 10.41, FT4 0.88 Increase levothyroxine to 100 Morbid Obesity/ WC bound Nutritional consultation ordered Pt cannot tolerate GLP-1 medications PT EVAL DVT prophylaxis: Eliquis held due to suspected GI bleed Med rec pending Full Code status Quality Stroke Does the patient have a stroke diagnosis?: No Reason for No Anti-thrombotic by Day Two: Contraindicated VTE Prior VTE?: No VTE Risk Level:: Medical - moderate - high VTE Device Contraindication: N/A - Device Ordered VTE Drug Contraindication: Treatment Not Indicated
[2025-03-04] MEDS: 0.9 % Sodium Chloride Flush 3 ML SYRINGE IVFLUSH ×3 (09:10→22:00)
--- NOTE | 2025-03-04 10:24 | PM.EVENT ---
Event Note Date of Service: 03/04/25 Event Note: GI pt seen and examined, consult dictated EGD/colon planned for 03/06 She understands risks and benefits and agrees to proceed. Time Spent With Patient Time: Total time managing care of this patient today ____ minutes.
[2025-03-04 10:34] LABS: Glucose, Whole Blood 137 mg/dL (60-115)
--- NOTE | 2025-03-04 11:01 | CONS_ITS ---
DATE OF SERVICE: 03/04/2025 REFERRING PHYSICIAN: Danya Lopez NP REASON FOR CONSULTATION: Iron deficiency anemia. HISTORY OF PRESENT ILLNESS: The patient is a pleasant 74-year-old woman admitted to the hospital on March 03 after presenting to the emergency room with complaints of chest and shoulder pain. During her evaluation, she was noted to have a hemoglobin of 6.3 with a hematocrit of 22. She does take Eliquis. Iron studies were consistent with iron deficiency anemia. She was given 2 units of packed red blood cells with improvement in her hemoglobin and hematocrit to 8.5 and 29.3. Stool occult blood testing has been negative. The patient describes undergoing colonoscopy many years ago at a hospital in [place]. She believes this was normal. She has no complaints of rectal bleeding. Has not noted any black stools and has no upper GI symptoms. She does have a family history of stomach cancer in a brother. PAST MEDICAL HISTORY: 1. Hypertension. 2. Hyperlipidemia. 3. Atrial fibrillation for which she takes Eliquis, last dose 03/02 per the patient. 4. ANILA not on CPAP. 5. Diabetes mellitus. 6. Chronic kidney disease stage 3. 7. Hypothyroidism. 8. Coronary artery disease. 9. Osteoporosis. 10. Heart failure with preserved ejection fraction and mild aortic stenosis. 11. Arthritis. 12. Asthma. 13. Fibromyalgia. 14. Rotator cuff tear. CURRENT MEDICATIONS: Her current medication list is reviewed in the chart. ALLERGIES: CODEINE. FAMILY HISTORY: As above. SOCIAL HISTORY: She denies tobacco, alcohol, and substance abuse. PAST SURGICAL HISTORY: Includes section x3, multiple hernia repairs, and tubal ligation. REVIEW OF SYSTEMS: SKIN: No pruritus. HEENT: Negative. CARDIOPULMONARY: No shortness of breath or chest pain currently. GASTROINTESTINAL: As above. GENITOURINARY: Negative. NEUROPSYCHIATRIC: Negative. PHYSICAL EXAMINATION: GENERAL: Shows a pleasant female, lying comfortably in bed. The history is obtained with the use of her flatwork finisher. SKIN: Anicteric. HEENT: Shows no scleral icterus. VITAL SIGNS: Reviewed and are stable. NECK: Without lymphadenopathy or thyromegaly. LUNGS: Clear. HEART: Shows a regular rate and rhythm. S1, S2. No murmur. ABDOMEN: Soft without focal masses or tenderness. Bowel sounds are present. No organomegaly is noted. EXTREMITIES: Remarkable for mild edema. LABORATORY DATA AND IMAGING STUDIES: IMPRESSION: Iron deficiency anemia. I have discussed colonoscopy and endoscopy with her for further evaluation. This will be arranged for Wednesday after she has been off for Eliquis for 3 full days. She understands risks and benefits and agrees to proceed. Thanks for asking me to see her. I will follow her in the hospital as needed. MD CHASE Mccann/CLEMENTE / [phone]
--- NOTE | 2025-03-04 11:03 | MHC.SLORD ---
Speech Language Pathology Order Status: Pt admitted w/ concern of GIB, on a clear liquid diet, will have EGD/colon 03/06. Per Dr. Panda, EGG SETTER consult not indicated. Please re-refer if needed.
--- NOTE | 2025-03-04 11:24 | MHC.CM.PN ---
Addendum entered by Regina Bridges 03/05/25 16:32: PT HAS 44.25 HOURS OF BAND DIRECTOR SERVICES PER WEEK ACTIVE WITH [employer] FOR HOME O2 Original Note: IMM 03/04/25, Pt. is SSO, PCP confirmed: Amanda Adame, HCP on file and confirmed: Anatoliy, her son. Pt. lives with her son, she has BAND DIRECTOR services from her grand dtr, whom she says is always with her. For DME, she has home O2 (she does not know co.) and a w/c. Transport home at DC will be family, she is able to transfer into the car. DCP: home with services, CM to follow for DC needs.
--- NOTE | 2025-03-04 14:37 | PHA.MEDREC ---
Addendum entered by Ashlyn Briggs RPh 03/04/25 15:12: MED REC REVIEWED BY [facility] Original Note: Pharmacy Consult ? Medication Reconciliation Pharmacy has completed the medication reconciliation. Spoke with patient through an chief of internal medicine. She confirmed Augmentin q12h, last taken 2 days ago. She is on Trulicity 3 mg but did not have it last Wednesday due to feeling sick. The levothyroxine decreased to 75 mcg and gabapentin increased to 300 mg bid. Patient was unsure how many units she uses for Tresiba. Called her daughter Alie but she advised me to call her [employer] ([phone]). Left [employer] voicemail this morning, attempted to call again however number is not available. Used claims to confirm Tresiba units.
[2025-03-04 16:14] LABS: Glucose, Whole Blood 208 mg/dL (60-115)
[2025-03-04] MEDS: Calcium Oyster Shell Elemental 500 MG TABLET PO (20:00)
[2025-03-04 23:47] LABS: Glucose, Whole Blood 140 mg/dL (60-115)
[2025-03-05 03:20] VITALS: BP 162/70; PULSE 63; RESP 18; TEMP 36.6; O2SAT 95
[2025-03-05 06:04] LABS: Glucose, Whole Blood 147 mg/dL (60-115)
[2025-03-05 07:32] VITALS: BP 134/90; PULSE 60; RESP 20; TEMP 36.3; O2SAT 92
[2025-03-05 08:52] VITALS: BP 134/90
[2025-03-05] MEDS: 0.9 % Sodium Chloride Flush 3 ML SYRINGE IVFLUSH ×3 (08:52→21:04)
[2025-03-05] MEDS: Calcium Oyster Shell Elemental 500 MG TABLET PO ×2 (08:52→21:10)
--- NOTE | 2025-03-05 11:09 | P.CONAN_ITS ---
HPI - Anesthesia Eval Consult details Narrative: 74 yr old female seen with records and information manager, family at bedside Morbid obesity BMI 48 No recent illness +CP & SOB, mostly sedentary, negative trops Acute blood loss anemia: H/H improved with 2 units PRBCs -Atrial fibrillation: on Eliquis, last dose 03/02 per patient. -ANILA not on CPAP. -Diabetes mellitus: on GLP, insulin, non-compliant -Chronic kidney disease stage 3. -CAD: Follows with [facility] cardiology, unsure last visit -Heart failure with preserved ejection fraction and mild to mod aortic stenosis: on torsemide, appears euvolemic on exam. Asthma: on 2 liters O2 On gabapentin Anesthesia Pre-Procedure Meds Is the patient on any of the following meds?: GLP1/DPP4 PMFSH Active Problems Active Problems: All Active Problems Acute blood loss anemia (Acute) Acute anemia (Acute) Urinary incontinence (Acute) Systolic murmur (Acute) (HFpEF) heart failure with preserved ejection fraction (Acute) Anemia (Acute) Hypothyroidism (Acute) Closed nondisplaced fracture of left tibial plateau (Acute) Leg abrasion (Acute) Renal failure (Acute) Cellulitis (Acute) Sinus bradycardia (Acute) MDD (major depressive disorder), recurrent episode, moderate (Acute) ANILA (obstructive sleep apnea) (Acute) Asthma (Acute) On amiodarone therapy (Acute) Anticoagulated (Acute) CHF (congestive heart failure) (Acute) Leg edema (Acute) Atrial flutter (Acute) Shortness of breath (Acute) Atrial arrhythmia (Acute) Protein in urine (Acute) Complicated urinary tract infection (Acute) Super obesity (Acute) Urinary incontinence (Acute) Varicose veins of both lower extremities (Acute) Opioid dependence (Acute) Depression with anxiety (Acute) Agoraphobia (Acute) Coronary artery disease (Acute) Cystocele with uterine prolapse (Acute) Type 2 diabetes mellitus with unspecified complications (Acute) Other and unspecified hyperlipidemia (Acute) Essential hypertension (Acute) Atherosclerotic cardiovascular disease (Acute) Urge incontinence (Acute) Urinary frequency (Acute) Urinary urgency (Acute) Past Medical History Medical History (Updated 03/04/25 @ 10:51 by Kevin Panda MD) Urinary incontinence (HFpEF) heart failure with preserved ejection fraction Anxiety Insomnia CKD (chronic kidney disease) CKD stage 3 due to type 2 diabetes mellitus Leg abrasion Abuse of non-prescription analgesics Type 2 diabetes mellitus with unspecified complications Other and unspecified hyperlipidemia Essential hypertension Atherosclerotic cardiovascular disease Urgency incontinence Osteoporosis Arthritis Asthma Hypertension Fibromyalgia Diabetes mellitus Functional capacity: wheelchair bound Family History Family history of problems with anesthesia: No Surgical History Surgical History (Updated 03/03/25 @ 23:08 by TOD Peter) H/O tubal ligation History of hernia repair History of Problems with Anesthesia: No Social History Social History Household Members: Children Household Members Other:: son Housing: Apartment Unable to assess alcohol history related to: Unknown Alcohol intake: never 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 Patient Tobacco Use Status: Never used Tobacco e-Cigarette/Vaping Use: Never Used Advance Directives Date on File: 04/07/24 service: No Sexual orientation: Straight/Heterosexual Meds Allergies Allergy/AdvReac Type Severity Reaction Status Date / Time codeine (CODEINE) Allergy Intermediate HALLUCINATI Verified 03/03/25 16:36 ONS Active Medications: Current Medications Acetaminophen (Acetaminophen 325 Mg Tablet) 650 mg PO Q6H PRN PRN Reason: Pain, Mild 1-3,fever,headache Last Admin: 03/05/25 05:58 Dose: 650 mg Albuterol Sulfate (Albuterol Sulfate (0.083%) 2.5 Mg/3 Ml Vial.Neb) 2.5 mg INHALE Q6H PRN PRN Reason: Shortness Of Breath Or Wheezing Albuterol Sulfate (Albuterol Sulfate 90 Mcg 8 Gm Inhaler) 2 puff INHALE QID PRN PRN Reason: Shortness Of Breath Or Wheezing Albuterol/Ipratropium (Albuterol/Iprat 2.5/0.5mg 3 Ml Ampul.Neb) 3 ml INHALE Q4H PRN PRN Reason: Shortness of Breath/Wheezing Amlodipine Besylate (Amlodipine Besylate 5 Mg Tablet) 5 mg PO DAILY JULIANNE; Protocol Last Admin: 03/05/25 08:52 Dose: 5 mg Amoxicillin/Clavulanate Potassium (Amoxicillin/Potassium Clav 875 Mg Tablet) 875 mg PO BID JULIANNE Last Admin: 03/05/25 08:52 Dose: 875 mg Bacitracin (Bacitracin Oint 14 Gm Tube) 1 appl TOPICAL BID JULIANNE; Protocol Last Admin: 03/05/25 08:53 Dose: 1 appl Bisacodyl (Bisacodyl 10 Mg Supp.Rect) 10 mg AL BEDTIME PRN PRN Reason: Constipation Calcium Carbonate (Calcium Carbonate 750 Mg Tab.Chew) 750 mg PO Q4H PRN PRN Reason: Heartburn Calcium Carbonate (Calcium Oyster Shell Elemental 500 Mg Tablet) 500 mg PO BID [facility] Last Admin: 03/05/25 08:52 Dose: 500 mg Dextrose (Dextrose 50 % 25 Gm/50 Ml Syringe) 25 gm IVPUSH Q15M PRN; Protocol PRN Reason: per Hypoglycemia Standing Ord. Duloxetine HCl (Duloxetine Hcl 20 Mg Capsule.Dr) 20 mg PO DAILY [facility] Last Admin: 03/05/25 08:52 Dose: 20 mg Gabapentin (Gabapentin 300 Mg Capsule) 300 mg PO BID [facility] Last Admin: 03/05/25 08:52 Dose: 300 mg Glucose (Glucose Gel 15 Gm Gel..Gram.) 15 gm PO Q15M PRN; Protocol PRN Reason: per Hypoglycemia Standing Ord. Hydroxyzine HCl (Hydroxyzine Hcl 25 Mg Tablet) 25 mg PO Q8H PRN PRN Reason: Anxiety Insulin Human Lispro (Insulin Lispro 100 Unit/Ml 3 Ml Vial) 0 unit SUBCUT Q6H [facility]; Protocol Last Admin: 03/05/25 06:04 Dose: Not Given Ketotifen Fumarate (Ketotifen Fumarate 0.025% Oph 5 Ml Drpbtl) 1 drop EYE-BOTH Q12H PRN PRN Reason: Eye Irritation Levothyroxine Sodium (Levothyroxine Sodium 100 Mcg Tablet) 100 mcg PO DAILY@0600 [facility] Last Admin: 03/05/25 05:50 Dose: 100 mcg Magnesium Hydroxide (Milk Of Magnesia 30 Ml Oral.Susp) 30 ml PO DAILY PRN PRN Reason: Constipation Melatonin (Melatonin 3 Mg Tablet) 3 mg PO BEDTIME [facility] Last Admin: 03/04/25 20:00 Dose: 3 mg Morphine Sulfate (Morphine Sulfate 2 Mg/Ml Cartridge) 2 mg IVPUSH Q4H PRN; Protocol PRN Reason: Pain, Severe (Pain Scale 7-10) Last Admin: 03/05/25 10:15 Dose: 2 mg Non-Formulary Medication (Dulaglutide [Trulicity]) 3 mg SUBCUT FR [facility] Ondansetron HCl (Ondansetron Hcl 4 Mg/2 Ml Vial) 4 mg IVPUSH Q8H PRN PRN Reason: Nausea and Vomiting Oxycodone HCl (Oxycodone Hcl Immed Release 5 Mg Tablet) 5 mg PO Q6H PRN PRN Reason: Pain, Moderate(Pain Scale 4-6) Pantoprazole Sodium (Pantoprazole Sodium 40 Mg/10 Ml Vial) 40 mg IVPUSH BID@063 0,1630 [facility] Last Admin: 03/05/25 05:50 Dose: 40 mg Polyethylene Glycol (Polyethylene Glycol 3350 17 Gm Powd.Pack) 17 gm PO DAILY PRN PRN Reason: Constipation Polyethylene Glycol/Electrolytes (Peg 3350/Na Sulf,Bicarb,Cl/Kcl 4,000 Ml Soln.Recon) 4,000 ml PO ONCE ONE Stop: 03/05/25 13:01 Sodium Chloride (0.9 % Sodium Chloride Flush 3 Ml Syringe) 3 ml IVFLUSH QSHIFT [facility] Last Admin: 03/05/25 08:52 Dose: 3 ml Trazodone HCl (Trazodone Hcl 50 Mg Tablet) 150 mg PO BEDTIME [facility] Last Admin: 03/04/25 20:00 Dose: 150 mg Home Medications ?Medication ?Instructions ?Recorded ?Confirmed ?Last Taken ?Type atorvastatin 80 mg tablet 80 mg PO BEDTIME 04/07/2110/05/24 History duloxetine 20 mg capsule,delayed 20 mg PO DAILY 03/04/25 04/05/24 History release omeprazole 40 mg capsule,delayed 40 mg PO DAILY@0630 0 03/18/24 03/04/25 10/06/24 History release aspirin 81 mg tablet,delayed 81 mg PO BEDTIME 06/11/24 03/04/25 10/06/24 History release oxycodone-acetaminophen 5 mg-325 1 tab PO Q6H PRN Katelyn re Pain 06/11/24 03/04/25 10/06/24 History mg tablet (Scale Score 7-10) ketotifen fumarate 0.025 % (0.035 1 drp ophthalmic (ey e) Q12H PRN 10/06/24 03/04/25 Unknown History %) eye drops (Eye Itch Relief) Eye Irritation trazodone 150 mg tablet 150 mg PO BEDTIME 10/06/24 0 03/04/25 10/05/24 History calcium carbonate (Oyster Shell 500 mg PO BID 12/06/24 03/04/25 Unknown History Calcium 500) hydroxyzine HCl 25 mg tablet 25 mg PO Q8H PRN anxiety 12/06/24 03/04/25 Unknown History insulin degludec 200 unit/mL (3 64 unit subcut DAILY 0 12/06/24 03/04/25 Unknown History mL) subcutaneous pen (Tresiba FlexTouch U-200 insulin) melatonin 3 mg tablet 3 mg PO BEDTIME 12/06/24 Unknown History albuterol sulfate 2.5 mg/3 mL 2.5 mg inhalation Q6H AL N 03/04/25 03/04/25 Unknown History (0.083 %) solution for nebulization Shortness Of Breat h Or Wheezing albuterol sulfate 90 mcg/actuation 2 puff inhalation Q ID PRN 03/04/25 03/04/25 Unknown History aerosol inhaler Shortness Of Breath Or Wheez ing amoxicillin 875 mg-potassium 1 tab PO Q12H 03/04/2503/02/25 History clavulanate 125 mg tablet bacitracin 500 unit/gram topical 1 appl topical BID 03/04/25 Unknown History ointment dulaglutide 3 mg/0.5 mL 3 mg subcut FR 03/04/2502/07 Unknown History subcutaneous pen injector (Trulicity) gabapentin 300 mg capsule 300 mg PO BID 03/04/2503/04 Unknown History levothyroxine 75 mcg tablet 75 mcg PO DAILY@0600 03/0403/04/25 Unknown History Exam Height,Weight and Vital Signs: Height 5 ft Weight 111.6 kg Last Vital Signs Temp 97.4 F 03/05/25 07:32 Pulse 60 03/05/25 07:32 Resp 20 03/05/25 07:32 BP 134/90 H 03/05/25 08:52 Pulse Ox 92 03/05/25 07:32 O2 Del Method Room Air 03/05/25 07:32 O2 Flow Rate 2 03/05/25 03:20 Pertinent Lab Results Pertinent Lab Results: Laboratory Tests 03/03/25 03/03/25 03/03/25 17:30 19:03 20:16 WBC 7.5 RBC 3.09 L Hgb 6.3 L* D Hct 22.1 L D MCV 71.5 L MCH 20.4 L MCHC 28.5 L RDW 17.1 H Plt Count 327 D MPV 10.0 Immature Gran % (Auto) 1.1 H Neut % (Auto) 74.9 H Lymph % (Auto) 11.0 L Ada % (Auto) 9.3 Eos % (Auto) 2.9 Baso % (Auto) 0.8 Lymph # (Auto) 0.8 L Ada # (Auto) 0.7 Eos # (Auto) 0.2 Baso # (Auto) 0.1 Abs Immat Gran (auto) 0.08 H Absolute Neuts (auto) 5.6 Absolute Nucleated RBC 0.020 H Nucleated RBC % (auto) 0.3 H VBG pH VBG pCO2 VBG pO2 VBG HCO3 VBG O2 Saturation VBG Base Excess Sodium 135 Potassium 4.7 Chloride 96 Carbon Dioxide 30 H Anion Gap 14 BUN 26 H Creatinine 1.44 H Estim Creat Clear Calc 38.6 Estimated GFR 35 POC Glucose Random Glucose 370 H* Lactic Acid Calcium 7.9 L D Phosphorus 3.1 Magnesium 1.9 Iron 10 L TIBC 209 L % Saturation 5 L Unsat Iron Binding 199 Total Bilirubin 0.3 AST 17 ALT < 6 Alkaline Phosphatase 73 Troponin I High Sens 14.8 D 17.0 B-Natriuretic Peptide 337 H Total Protein 6.7 Albumin 2.8 L TSH 10.41 H Free T4 0.88 Urine Color Urine Appearance Urine pH Ur Specific [place] Urine Protein Urine Glucose (UA) Urine Ketones Urine Blood Urine Nitrite Ur Leukocyte Esterase Stool Occult Blood NEGATIVE Blood Type A Positive Antibody Screen NEGATIVE Crossmatch See Detail 03/03/25 03/03/25 03/03/25 22:10 22:14 23:40 WBC RBC Hgb Hct MCV MCH MCHC RDW Plt Count MPV Immature Gran % (Auto) Neut % (Auto) Lymph % (Auto) Ada % (Auto) Eos % (Auto) Baso % (Auto) Lymph # (Auto) Ada # (Auto) Eos # (Auto) Baso # (Auto) Abs Immat Gran (auto) Absolute Neuts (auto) Absolute Nucleated RBC Nucleated RBC % (auto) VBG pH 7.44 H VBG pCO2 58 VBG pO2 43 VBG HCO3 39 H VBG O2 Saturation TNP VBG Base Excess 13.9 Sodium Potassium Chloride Carbon Dioxide Anion Gap BUN Creatinine Estim Creat Clear Calc Estimated GFR POC Glucose 231 H Random Glucose Lactic Acid 1.0 Calcium Phosphorus Magnesium Iron TIBC % Saturation Unsat Iron Binding Total Bilirubin AST ALT Alkaline Phosphatase Troponin I High Sens B-Natriuretic Peptide Total Protein Albumin TSH Free T4 Urine Color Urine Appearance Urine pH Ur Specific [place] Urine Protein Urine Glucose (UA) Urine Ketones Urine Blood Urine Nitrite Ur Leukocyte Esterase Stool Occult Blood Blood Type Antibody Screen Crossmatch 03/04/25 03/04/25 03/04/25 01:58 03:59 05:55 WBC 8.4 RBC 3.85 L D Hgb 8.5 L D Hct 29.3 L D MCV 76.1 L MCH 22.1 L MCHC 29.0 L RDW 18.6 H Plt Count 343 MPV 10.1 Immature Gran % (Auto) 1.4 H Neut % (Auto) 70.1 Lymph % (Auto) 11.9 L Ada % (Auto) 11.7 H Eos % (Auto) 4.0 Baso % (Auto) 0.9 Lymph # (Auto) 1.0 L Ada # (Auto) 1.0 Eos # (Auto) 0.3 Baso # (Auto) 0.1 Abs Immat Gran (auto) 0.12 H Absolute Neuts (auto) 5.9 Absolute Nucleated RBC 0.050 H Nucleated RBC % (auto) 0.6 H VBG pH VBG pCO2 VBG pO2 VBG HCO3 VBG O2 Saturation VBG Base Excess Sodium 137 Potassium 4.5 Chloride 97 Carbon Dioxide 32 H Anion Gap 13 BUN 22 H Creatinine 1.24 Estim Creat Clear Calc 44.5 Estimated GFR 42 POC Glucose 220 H Random Glucose 191 H Lactic Acid Calcium 8.4 D Phosphorus Magnesium Iron TIBC % Saturation Unsat Iron Binding Total Bilirubin 0.9 AST 17 ALT < 6 Alkaline Phosphatase 75 Troponin I High Sens B-Natriuretic Peptide Total Protein 6.5 Albumin 2.8 L TSH Free T4 Urine Color Yellow Urine Appearance Clear Urine pH 7.0 Ur Specific [place] 1.010 Urine Protein Negative Urine Glucose (UA) Negative Urine Ketones Negative Urine Blood Negative Urine Nitrite Negative Ur Leukocyte Esterase Negative Stool Occult Blood Blood Type Antibody Screen Crossmatch 03/04/25 03/04/25 03/04/25 05:59 10:29 16:11 WBC RBC Hgb Hct MCV MCH MCHC RDW Plt Count MPV Immature Gran % (Auto) Neut % (Auto) Lymph % (Auto) Ada % (Auto) Eos % (Auto) Baso % (Auto) Lymph # (Auto) Ada # (Auto) Eos # (Auto) Baso # (Auto) Abs Immat Gran (auto) Absolute Neuts (auto) Absolute Nucleated RBC Nucleated RBC % (auto) VBG pH VBG pCO2 VBG pO2 VBG HCO3 VBG O2 Saturation VBG Base Excess Sodium Potassium Chloride Carbon Dioxide Anion Gap BUN Creatinine Estim Creat Clear Calc Estimated GFR POC Glucose 151 H 137 H 208 H Random Glucose Lactic Acid Calcium Phosphorus Magnesium Iron TIBC % Saturation Unsat Iron Binding Total Bilirubin AST ALT Alkaline Phosphatase Troponin I High Sens B-Natriuretic Peptide Total Protein Albumin TSH Free T4 Urine Color Urine Appearance Urine pH Ur Specific [place] Urine Protein Urine Glucose (UA) Urine Ketones Urine Blood Urine Nitrite Ur Leukocyte Esterase Stool Occult Blood Blood Type Antibody Screen Crossmatch 03/04/25 03/05/25 23:36 05:53 WBC RBC Hgb Hct MCV MCH MCHC RDW Plt Count MPV Immature Gran % (Auto) Neut % (Auto) Lymph % (Auto) Ada % (Auto) Eos % (Auto) Baso % (Auto) Lymph # (Auto) Ada # (Auto) Eos # (Auto) Baso # (Auto) Abs Immat Gran (auto) Absolute Neuts (auto) Absolute Nucleated RBC Nucleated RBC % (auto) VBG pH VBG pCO2 VBG pO2 VBG HCO3 VBG O2 Saturation VBG Base Excess Sodium Potassium Chloride Carbon Dioxide Anion Gap BUN Creatinine Estim Creat Clear Calc Estimated GFR POC Glucose 140 H 147 H Random Glucose Lactic Acid Calcium Phosphorus Magnesium Iron TIBC % Saturation Unsat Iron Binding Total Bilirubin AST ALT Alkaline Phosphatase Troponin I High Sens B-Natriuretic Peptide Total Protein Albumin TSH Free T4 Urine Color Urine Appearance Urine pH Ur Specific [place] Urine Protein Urine Glucose (UA) Urine Ketones Urine Blood Urine Nitrite Ur Leukocyte Esterase Stool Occult Blood Blood Type Antibody Screen Crossmatch Narrative Narrative: EKG 02/2025 Vent. Rate : 73 BPM Atrial Rate : * BPM P-R Int : * ms QRS Dur : 82 ms QT Int : 406 ms P-R-T Axes : * -12 24 degrees QTcB Int : 447 ms Normal sinus rhythm with occasional Premature ventricular complexes Possible Anterior infarct (cited on or before 02-Aug-2024) Abnormal ECG When compared with ECG of 06-Dec-2024 04:03, No significant changes seen ECHO 08/13/2024 LV size normal. LV wall thickness mildly increased LVEF 60-65% No obvious wall motion abnormalities. Mild to moderate aotic stenosis. Trace to mild mitral regurg Mild to mod tricuspid regurg Airway Mallampati Class: II TM Dist: >3cm Neck ROM: Full Loose/Missing/Broken Teeth: Yes (missing molars) Heart: RRR, +2/6 systolic murmur Lungs: CTAB, decreased expiratory phase Other: no LE edema Assessment and Plan Final Anesthetic Review Family History of Problems with Anesthesia: No History of Problems with Anesthesia: No
[2025-03-05 12:00] VITALS: BP 149/62; PULSE 61; RESP 20; TEMP 36.2; O2SAT 99
[2025-03-05 12:03] LABS: Glucose, Whole Blood 171 mg/dL (60-115)
[2025-03-05] MEDS: PEG 3350/Na Sulf,Bicarb,Cl/KCL 4,000 ML SOLN.RECON 4000 ML PO (13:21)
--- NOTE | 2025-03-05 14:24 | HO.PM.IMPN ---
Subjective Subjective Date of Service: 03/05/25 Interval History: f/u GIB, acute blood loss anemia interval history: H/H better after transfusion, no active bleed, there is plan for EGD and colonocopy tomorrow Physical Exam Vital Signs: Vital Signs: Last Vital Signs Temp 97.1 F 03/05/25 12:00 Pulse 61 03/05/25 12:00 Resp 20 03/05/25 12:00 BP 149/62 H 03/05/25 12:00 Pulse Ox 99 03/05/25 12:00 O2 Del Method Nasal Cannula 03/05/25 12:00 O2 Flow Rate 2 03/05/25 12:00 BMI result Body Mass Index 48.0 .ex Const: Other: General: AO X 3, no acute distress Resp: CTA bilateral CVS: S1,S2,RRR GI: +BS, NT, no distention Skin: No rash Neuro: motor grossly intact Psych: appropriate affect Objective Data Active Medications Acetaminophen (Acetaminophen 325 Mg Tablet) 650 mg PO Q6H PRN PRN Reason: Pain, Mild 1-3,fever,headache Last Admin: 03/05/25 05:58 Dose: 650 mg Documented By: GRIFFIN Albuterol Sulfate (Albuterol Sulfate (0.083%) 2.5 Mg/3 Ml Vial.Neb) 2.5 mg INHALE Q6H PRN PRN Reason: Shortness Of Breath Or Wheezing Albuterol Sulfate (Albuterol Sulfate 90 Mcg 8 Gm Inhaler) 2 puff INHALE QID PRN PRN Reason: Shortness Of Breath Or Wheezing Albuterol/Ipratropium (Albuterol/Iprat 2.5/0.5mg 3 Ml Ampul.Neb) 3 ml INHALE Q4H PRN PRN Reason: Shortness of Breath/Wheezing Amlodipine Besylate (Amlodipine Besylate 5 Mg Tablet) 5 mg PO DAILY [facility]; Protocol Last Admin: 03/05/25 08:52 Dose: 5 mg Documented By: CAROL Amoxicillin/Clavulanate Potassium (Amoxicillin/Potassium Clav 875 Mg Tablet) 875 mg PO BID JULIANNE Last Admin: 03/05/25 08:52 Dose: 875 mg Documented By: CAROL Bacitracin (Bacitracin Oint 14 Gm Tube) 1 appl TOPICAL BID JULIANNE; Protocol Last Admin: 03/05/25 08:53 Dose: 1 appl Documented By: CAROL Bisacodyl (Bisacodyl 10 Mg Supp.Rect) 10 mg DE BEDTIME PRN PRN Reason: Constipation Calcium Carbonate (Calcium Carbonate 750 Mg Tab.Chew) 750 mg PO Q4H PRN PRN Reason: Heartburn Calcium Carbonate (Calcium Oyster Shell Elemental 500 Mg Tablet) 500 mg PO BID [facility] Last Admin: 03/05/25 08:52 Dose: 500 mg Documented By: CAROL Dextrose (Dextrose 50 % 25 Gm/50 Ml Syringe) 25 gm IVPUSH Q15M PRN; Protocol PRN Reason: per Hypoglycemia Standing Ord. Duloxetine HCl (Duloxetine Hcl 20 Mg Capsule.Dr) 20 mg PO DAILY [facility] Last Admin: 03/05/25 08:52 Dose: 20 mg Documented By: CAROL Gabapentin (Gabapentin 300 Mg Capsule) 300 mg PO BID [facility] Last Admin: 03/05/25 08:52 Dose: 300 mg Documented By: CAROL Glucose (Glucose Gel 15 Gm Gel..Gram.) 15 gm PO Q15M PRN; Protocol PRN Reason: per Hypoglycemia Standing Ord. Hydroxyzine HCl (Hydroxyzine Hcl 25 Mg Tablet) 25 mg PO Q8H PRN PRN Reason: Anxiety Insulin Human Lispro (Insulin Lispro 100 Unit/Ml 3 Ml Vial) 0 unit SUBCUT Q6H [facility]; Protocol Last Admin: 03/05/25 12:05 Dose: 2 unit Documented By: CAROL Ketotifen Fumarate (Ketotifen Fumarate 0.025% Oph 5 Ml Drpbtl) 1 drop EYE-BOTH Q12H PRN PRN Reason: Eye Irritation Levothyroxine Sodium (Levothyroxine Sodium 100 Mcg Tablet) 100 mcg PO DAILY@0600 [facility] Last Admin: 03/05/25 05:50 Dose: 100 mcg Documented By: GRIFFIN Magnesium Hydroxide (Milk Of Magnesia 30 Ml Oral.Susp) 30 ml PO DAILY PRN PRN Reason: Constipation Melatonin (Melatonin 3 Mg Tablet) 3 mg PO BEDTIME [facility] Last Admin: 03/04/25 20:00 Dose: 3 mg Documented By: GRIFFIN Morphine Sulfate (Morphine Sulfate 2 Mg/Ml Cartridge) 2 mg IVPUSH Q4H PRN; Protocol PRN Reason: Pain, Severe (Pain Scale 7-10) Last Admin: 03/05/25 10:15 Dose: 2 mg Documented By: CAROL Non-Formulary Medication (Dulaglutide [Trulicity]) 3 mg SUBCUT FR [facility] Ondansetron HCl (Ondansetron Hcl 4 Mg/2 Ml Vial) 4 mg IVPUSH Q8H PRN PRN Reason: Nausea and Vomiting Oxycodone HCl (Oxycodone Hcl Immed Release 5 Mg Tablet) 5 mg PO Q6H PRN PRN Reason: Pain, Moderate(Pain Scale 4-6) Pantoprazole Sodium (Pantoprazole Sodium 40 Mg/10 Ml Vial) 40 mg IVPUSH BID@0630,1630 [facility] Last Admin: 03/05/25 05:50 Dose: 40 mg Documented By: GRIFFIN Polyethylene Glycol (Polyethylene Glycol 3350 17 Gm Powd.Pack) 17 gm PO DAILY PRN PRN Reason: Constipation Sodium Chloride (0.9 % Sodium Chloride Flush 3 Ml Syringe) 3 ml IVFLUSH QSHIFT [facility] Last Admin: 03/05/25 08:52 Dose: 3 ml Documented By: CAROL Trazodone HCl (Trazodone Hcl 50 Mg Tablet) 150 mg PO BEDTIME [facility] Last Admin: 03/04/25 20:00 Dose: 150 mg Documented By: GRIFFIN Labs 03/04/25 05:55 03/04/25 05:55 Labs: Laboratory Results - last 24 hr 03/04/25 03/04/25 03/05/25 16:11 23:36 05:53 POC Glucose 208 H 140 H 147 H 03/05/25 11:59 POC Glucose 171 H Assessment and Plan (1) Acute blood loss anemia: Status: Acute Plan 74-year-old female with past medical history CKD stage 3, IDDM, ANILA not on CPAP, AFIB on Eliquis, HLD, HTN, Hypothyroidism, CAD, osteoporosis, HFpEF, arthritis, asthma, fibromyalgia, right rotator cuff tear, recent right shoulder effusion cultures negative status post aspiration, ventral hernia repair with mesh, presented with chest pain and found to have profound anemia Hgb of 6 on Eliquis. Acute blood loss anemia, Iron deficiency, concern for GIB, on eliquis Transfused 2 units Hgb 6.3-->8.5. Recheck CBC IV PPI GI consult, to have EGD and colonoscopy tomorrow Hold Eliquis IV Iron clear liquid diet today Chest Pain, Atypical, negative troponin ? related to above--resolved hold further testing at this time Chronic AFIB..rate controlled. 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-[address] no obstruction Trullicity stopped 2 weeks ago Patient was told to stop her Trulicity HFpEF/ III/ systolic murmur - hx of mild aortic stenosis/ HX of mild asc aortic dilitation, presently euvolemic hold continue home diuretic R shoulder pain/ Recent R shoulder Effusison/ Rotator Cuff Tear (chronic) Outptient follow up IDDM SSI, Diabetic diet Hypothyroidism on Levothyroxine TSH 10.41, FT4 0.88 Increase levothyroxine to 100 Morbid Obesity/ WC bound Nutritional consultation ordered Pt cannot tolerate GLP-1 medications PT EVAL DVT prophylaxis: Eliquis held due to suspected GI bleed Med rec pending Full Code status Quality Stroke Does the patient have a stroke diagnosis?: No Reason for No Anti-thrombotic by Day Two: Contraindicated VTE Prior VTE?: No VTE Risk Level:: Medical - moderate - high VTE Device Contraindication: N/A - Device Ordered VTE Drug Contraindication: Treatment Not Indicated
[2025-03-05 15:43] LABS: Hematocrit 31.3 % (37.0-47.0); Hemoglobin 8.8 g/dl (12.0-16.0); Mean Corpuscular HGB Conc 28.1 g/dl (31.0-35.0); Mean Corpuscular Hemoglobin 21.8 pg (27.0-33.0); Mean Corpuscular Volume 77.5 fL (80.0-98.0); NRBC Abs Auto 0.020 X10*3/uL (0.0-0.012); NRBC Pct Auto 0.3 /100WBC (0.0-0.2); Platelet Count 378 X10*3/uL (160-400); Red Blood Count 4.04 X10*6/uL (4.20-5.50); White Blood Count 7.0 X10*3/uL (4.8-10.8)
[2025-03-05 15:51] VITALS: BP 145/63; PULSE 61; RESP 20; TEMP 36.6; O2SAT 99
--- NOTE | 2025-03-05 16:25 | MHC.CM.PN ---
HOME SERVICES HAVE BEEN RECOMMENDED, REFERRAL MADE
[2025-03-05 16:54] LABS: Glucose, Whole Blood 137 mg/dL (60-115)
[2025-03-05 20:00] VITALS: BP 148/68; PULSE 66; RESP 18; TEMP 36.4; O2SAT 99
[2025-03-05 23:37] LABS: Glucose, Whole Blood 134 mg/dL (60-115)
[2025-03-06] VITALS (10 sets, daily range): BP systolic 100–162; BP diastolic 48–76; PULSE 62–75; RESP 14–20; TEMP 36.1–36.7; O2SAT 93–100
[2025-03-06 05:27] LABS: Glucose, Whole Blood 139 mg/dL (60-115)
[2025-03-06] MEDS: oxyCODONE HCl Immed Release 5 MG TABLET PO (05:35)
[2025-03-06 07:11] LABS: Hematocrit 29.3 % (37.0-47.0); Hemoglobin 8.5 g/dl (12.0-16.0); Mean Corpuscular HGB Conc 29.0 g/dl (31.0-35.0); Mean Corpuscular Hemoglobin 22.4 pg (27.0-33.0); Mean Corpuscular Volume 77.1 fL (80.0-98.0); NRBC Abs Auto 0.000 X10*3/uL (0.0-0.012); NRBC Pct Auto 0.0 /100WBC (0.0-0.2); Platelet Count 365 X10*3/uL (160-400); Red Blood Count 3.80 X10*6/uL (4.20-5.50); White Blood Count 6.6 X10*3/uL (4.8-10.8)
[2025-03-06 07:16] LABS: Anion Gap 12 (12-20); Blood Urea Nitrogen 14 mg/dL (9-16); Calcium 8.1 mg/dL (8.4-10.2); Carbon Dioxide 33 mmol/L (22-29); Chloride 101 mmol/L (96-108); Creatinine Clr Calc Pharmacy 55.2; Estimated Glomerular Filt Rate 54; Potassium 4.0 mmol/L (3.3-5.1); Sodium 142 mmol/L (135-145)
[2025-03-06] MEDS: 0.9 % Sodium Chloride Flush 3 ML SYRINGE IVFLUSH ×3 (08:30→21:31)
[2025-03-06] MEDS: Lactated Ringers 1,000 ML 80 ML IVCONT (10:11)
--- NOTE | 2025-03-06 10:29 | MHC.SHP ---
Pre-Procedural Eval Section A - 24 Hr Update-Section A only Date of Service: 03/06/25 The patient is an INPATIENT: Yes Changes since office visit: Yes Cold of Flu in the past 2 weeks, Yes New Medical Problems, Yes Changes in Medication and Yes Patient answered all questions The patient has been examined within 24 hours of the surgical procedure. The History & Physical has been completed within 30 days and I have reviewed it.: No Section B - Complete if H&P > 30 days Chief Complaint: chest pain Allergies: Allergies Allergy/AdvReac Type Severity Reaction Status Date / Time codeine (CODEINE) Allergy Intermediate HALLUCINATI Verified 03/03/25 16:36 ONS Plan I have reviewed the history and physical and performed a pertinent physical examination on my patient. No changes have occurred unless specified. Time Spent With Patient Time: Total time managing care of this patient today ____ minutes.
--- NOTE | 2025-03-06 11:01 | P.PNIM_ITS ---
Subjective Subjective Date of Service: 03/06/25 Interval History: Seen and evaluated today. Reports feeling better after transfusion (completed 03/04/25), denies CP, SOB, or palpitations, shoulder continues to be painful however. Understands procedure EGD/Colonoscopy planned today, is slightly nervous. Hematocrit stable last 3 days around 30 Review of Systems Review of Systems: Yes all other systems are reviewed and are negative Physical Exam 2 Exam: Exam: Constitutional: Alert, in no distress, overweight. Mental Status: Oriented to person, place and time. Respiratory: 2l via NC. bilateral upper lobes CTA, slight fine crackle to bilateral bases Cardiovascular: S1 S2 regular. No rubs or gallops. Gastrointestinal: Abdomen large, round and distended, soft, non-tender. Normal bowel sounds.? Neurologic: Cranial nerves II-XII grossly intact. No focal neurological deficits. Moves all extremities spontaneously.? Skin: No rashes or lesions.? Musculoskeletal: No cyanosis or clubbing. Psychiatric: Normal mood and affect? Vital Signs: Vital Signs: Last Vital Signs Temp 97.8 F 03/06/25 10:11 Pulse 62 03/06/25 10:11 Resp 14 03/06/25 10:11 BP 159/61 H 03/06/25 10:11 Pulse Ox 97 03/06/25 10:11 O2 Del Method Nasal Cannula 03/06/25 10:11 O2 Flow Rate 2 03/06/25 10:11 BMI result Body Mass Index 48.0 Objective Data Active Medications Acetaminophen (Acetaminophen 325 Mg Tablet) 650 mg PO Q6H PRN PRN Reason: Pain, Mild 1-3,fever,headache Last Admin: 03/05/25 05:58 Dose: 650 mg Documented By: GRIFFIN Albuterol Sulfate (Albuterol Sulfate (0.083%) 2.5 Mg/3 Ml Vial.Neb) 2.5 mg INHALE Q6H PRN PRN Reason: Shortness Of Breath Or Wheezing Albuterol Sulfate (Albuterol Sulfate 90 Mcg 8 Gm Inhaler) 2 puff INHALE QID PRN PRN Reason: Shortness Of Breath Or Wheezing Albuterol/Ipratropium (Albuterol/Iprat 2.5/0.5mg 3 Ml Ampul.Neb) 3 ml INHALE Q4H PRN PRN Reason: Shortness of Breath/Wheezing Amlodipine Besylate (Amlodipine Besylate 5 Mg Tablet) 5 mg PO DAILY [facility]; Protocol Last Admin: 03/06/25 08:30 Dose: 5 mg Documented By: FIDELINA Amoxicillin/Clavulanate Potassium (Amoxicillin/Potassium Clav 875 Mg Tablet) 875 mg PO BID [facility] Last Admin: 03/06/25 08:30 Dose: 875 mg Documented By: FIDELINA Bacitracin (Bacitracin Oint 14 Gm Tube) 1 appl TOPICAL BID [facility]; Protocol Last Admin: 03/06/25 08:34 Dose: 1 appl Documented By: FIDELINA Bisacodyl (Bisacodyl 10 Mg Supp.Rect) 10 mg [place] BEDTIME PRN PRN Reason: Constipation Calcium Carbonate (Calcium Carbonate 750 Mg Tab.Chew) 750 mg PO Q4H PRN PRN Reason: Heartburn Calcium Carbonate (Calcium Oyster Shell Elemental 500 Mg Tablet) 500 mg PO BID [facility] Last Admin: 03/06/25 08:35 Dose: Not Given Documented By: FIDELINA Non-Admin Reason: Held per OR/anesthesia Dextrose (Dextrose 50 % 25 Gm/50 Ml Syringe) 25 gm IVPUSH Q15M PRN; Protocol PRN Reason: per Hypoglycemia Standing Ord. Duloxetine HCl (Duloxetine Hcl 20 Mg Capsule.Dr) 20 mg PO DAILY [facility] Last Admin: 03/06/25 08:30 Dose: 20 mg Documented By: FIDELINA Gabapentin (Gabapentin 300 Mg Capsule) 300 mg PO BID [facility] Last Admin: 03/06/25 08:30 Dose: 300 mg Documented By: FIDELINA Glucose (Glucose Gel 15 Gm Gel..Gram.) 15 gm PO Q15M PRN; Protocol PRN Reason: per Hypoglycemia Standing Ord. Hydroxyzine HCl (Hydroxyzine Hcl 25 Mg Tablet) 25 mg PO Q8H PRN PRN Reason: Anxiety Lactated Ringer's (Lr) 1,000 mls @ 80 mls/hr IVCONT .[id number] [facility] Last Admin: 03/06/25 10:11 Dose: 80 mls/hr Documented By: MAXIMUS Insulin Human Lispro (Insulin Lispro 100 Unit/Ml 3 Ml Vial) 0 unit SUBCUT Q6H [facility]; Protocol Last Admin: 03/06/25 05:24 Dose: Not Given Documented By: FILIBERTO Non-Admin Reason: No Insulin Coverage Ketotifen Fumarate (Ketotifen Fumarate 0.025% Oph 5 Ml Drpbtl) 1 drop EYE-BOTH Q12H PRN PRN Reason: Eye Irritation Levothyroxine Sodium (Levothyroxine Sodium 100 Mcg Tablet) 100 mcg PO DAILY@0600 [facility] Last Admin: 03/06/25 05:35 Dose: 100 mcg Documented By: GRIFFIN Magnesium Hydroxide (Milk Of Magnesia 30 Ml Oral.Susp) 30 ml PO DAILY PRN PRN Reason: Constipation Melatonin (Melatonin 3 Mg Tablet) 3 mg PO BEDTIME [facility] Last Admin: 03/05/25 21:03 Dose: 3 mg Documented By: GRIFFIN Morphine Sulfate (Morphine Sulfate 2 Mg/Ml Cartridge) 2 mg IVPUSH Q4H PRN; Protocol PRN Reason: Pain, Severe (Pain Scale 7-10) Last Admin: 03/06/25 03:21 Dose: 2 mg Documented By: GRIFFIN Non-Formulary Medication (Dulaglutide [Trulicity]) 3 mg SUBCUT FR [facility] Ondansetron HCl (Ondansetron Hcl 4 Mg/2 Ml Vial) 4 mg IVPUSH Q8H PRN PRN Reason: Nausea and Vomiting Oxycodone HCl (Oxycodone Hcl Immed Release 5 Mg Tablet) 5 mg PO Q6H PRN PRN Reason: Pain, Moderate(Pain Scale 4-6) Last Admin: 03/06/25 05:35 Dose: 5 mg Documented By: GRIFFIN Pantoprazole Sodium (Pantoprazole Sodium 40 Mg/10 Ml Vial) 40 mg IVPUSH BID@0630,1630 [facility] Last Admin: 03/06/25 05:35 Dose: 40 mg Documented By: GRIFFIN Polyethylene Glycol (Polyethylene Glycol 3350 17 Gm Powd.Pack) 17 gm PO DAILY PRN PRN Reason: Constipation Sodium Chloride (0.9 % Sodium Chloride Flush 3 Ml Syringe) 3 ml IVFLUSH QSHIFT [facility] Last Admin: 03/06/25 08:30 Dose: 3 ml Documented By: FIDELINA Trazodone HCl (Trazodone Hcl 50 Mg Tablet) 150 mg PO BEDTIME [facility] Last Admin: 03/05/25 21:03 Dose: 150 mg Documented By: GRIFFIN Labs 03/06/25 06:47 03/06/25 06:47 Labs: Laboratory Results - last 24 hr 03/05/25 03/05/25 03/05/25 11:59 15:36 16:49 MCV 77.5 L MCH 21.8 L MCHC 28.1 L RDW 19.2 H Plt Count 378 MPV 9.6 Absolute Nucleated RBC 0.020 H Nucleated RBC % (auto) 0.3 H Anion Gap Estim Creat Clear Calc Estimated GFR POC Glucose 171 H 137 H Random Glucose Calcium 03/05/25 03/06/25 03/06/25 23:31 05:22 06:47 MCV 77.1 L MCH 22.4 L MCHC 29.0 L RDW 19.6 H Plt Count 365 MPV 9.3 L Absolute Nucleated RBC 0.000 Nucleated RBC % (auto) 0.0 Anion Gap 12 Estim Creat Clear Calc 55.2 Estimated GFR 54 POC Glucose 134 H 139 H Random Glucose 141 H Calcium 8.1 L Assessment and Plan (1) Acute anemia: Status: Acute Plan 74-year-old female with past medical history CKD stage 3, IDDM, ANILA not on CPAP, AFIB on Eliquis, HLD, HTN, Hypothyroidism, CAD, osteoporosis, HFpEF, arthritis, asthma, fibromyalgia, right rotator cuff tear, recent right shoulder effusion cultures negative status post aspiration, ventral hernia repair with mesh, presented with chest pain and found to have profound anemia Hgb of 6 on Eliquis. Acute blood loss anemia, Iron deficiency, concern for GIB, on Eliquis Transfused 2 units Hgb 6.3 ? 8.5 today, and stable last 3 days IV PPI GI consult, to have EGD and colonoscopy today Hold Eliquis IV Iron NPO until after procedure Chest Pain--resolved hold further testing at this time Chronic AFIB, rate controlled. 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 Last dose about 1 mo. ago HFpEF/ III/ systolic murmur (EF 55-60% 06/2024)- hx of mild aortic stenosis/ HX of mild asc aortic dilatation, presently euvolemic hold diuretic for now R shoulder pain/ Recent R shoulder Effusion/ Rotator Cuff Tear (chronic) Outpatient follow up IDDM SSI, Diabetic diet Hypothyroidism on Levothyroxine TSH 10.41, FT4 0.88 Increase levothyroxine to 100 Morbid Obesity/ WC bound Nutritional consultation ordered Pt cannot tolerate GLP-1 medications PT EVAL DVT prophylaxis: Eliquis held due to suspected GI bleed Full Code status Quality Stroke Does the patient have a stroke diagnosis?: No Reason for No Anti-thrombotic by Day Two: Contraindicated VTE Prior VTE?: No VTE Risk Level:: Medical - moderate - high VTE Device Contraindication: N/A - Device Ordered VTE Drug Contraindication: Treatment Not Indicated
--- NOTE | 2025-03-06 11:08 | HO.ANESPROP2 ---
[facility] Active Problems Active Problems: All Active Problems (Updated 03/04/25 @ 10:51 by Kevin Panda MD) Acute blood loss anemia (Acute) Acute anemia (Acute) Urinary incontinence (Acute) Systolic murmur (Acute) (HFpEF) heart failure with preserved ejection fraction (Acute) Anemia (Acute) Hypothyroidism (Acute) Closed nondisplaced fracture of left tibial plateau (Acute) Leg abrasion (Acute) Renal failure (Acute) Cellulitis (Acute) Sinus bradycardia (Acute) MDD (major depressive disorder), recurrent episode, moderate (Acute) ANILA (obstructive sleep apnea) (Acute) Asthma (Acute) On amiodarone therapy (Acute) Anticoagulated (Acute) CHF (congestive heart failure) (Acute) Leg edema (Acute) Atrial flutter (Acute) Shortness of breath (Acute) Atrial arrhythmia (Acute) Protein in urine (Acute) Complicated urinary tract infection (Acute) Super obesity (Acute) Urinary incontinence (Acute) Varicose veins of both lower extremities (Acute) Opioid dependence (Acute) Depression with anxiety (Acute) Agoraphobia (Acute) Coronary artery disease (Acute) Cystocele with uterine prolapse (Acute) Type 2 diabetes mellitus with unspecified complications (Acute) Other and unspecified hyperlipidemia (Acute) Essential hypertension (Acute) Atherosclerotic cardiovascular disease (Acute) Urge incontinence (Acute) Urinary frequency (Acute) Urinary urgency (Acute) Past Medical History Medical History (Updated 03/04/25 @ 10:51 by Kevin Panda MD) Urinary incontinence (HFpEF) heart failure with preserved ejection fraction Anxiety Insomnia CKD (chronic kidney disease) CKD stage 3 due to type 2 diabetes mellitus Leg abrasion Abuse of non-prescription analgesics Type 2 diabetes mellitus with unspecified complications Other and unspecified hyperlipidemia Essential hypertension Atherosclerotic cardiovascular disease Urgency incontinence Osteoporosis Arthritis Asthma Hypertension Fibromyalgia Diabetes mellitus Functional capacity: wheelchair bound Family History Family history of problems with anesthesia: No Surgical History Surgical History (Updated 03/03/25 @ 23:08 by TOD Peter) H/O tubal ligation History of hernia repair History of Problems with Anesthesia: No Social History Social History Household Members: Children Household Members Other:: son Housing: Apartment Are you a primary care nurse rn to a significant other at home: No Do you presently have visiting nurse or other home services: No Unable to assess alcohol history related to: Unknown Alcohol intake: never 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 Patient Tobacco Use Status: Never used Tobacco e-Cigarette/Vaping Use: Never Used Advance Directives Date on File: 04/07/24 service: No Sexual orientation: Straight/Heterosexual Meds Allergies Allergy/AdvReac Type Severity Reaction Status Date / Time codeine (CODEINE) Allergy Intermediate HALLUCINATI Verified 03/03/25 16:36 ONS Active Medications: Current Medications Acetaminophen (Acetaminophen 325 Mg Tablet) 650 mg PO Q6H PRN PRN Reason: Pain, Mild 1-3,fever,headache Last Admin: 03/05/25 05:58 Dose: 650 mg Albuterol Sulfate (Albuterol Sulfate (0.083%) 2.5 Mg/3 Ml Vial.Neb) 2.5 mg INHALE Q6H PRN PRN Reason: Shortness Of Breath Or Wheezing Albuterol Sulfate (Albuterol Sulfate 90 Mcg 8 Gm Inhaler) 2 puff INHALE QID PRN PRN Reason: Shortness Of Breath Or Wheezing Albuterol/Ipratropium (Albuterol/Iprat 2.5/0.5mg 3 Ml Ampul.Neb) 3 ml INHALE Q4H PRN PRN Reason: Shortness of Breath/Wheezing Amlodipine Besylate (Amlodipine Besylate 5 Mg Tablet) 5 mg PO DAILY [facility]; Protocol Last Admin: 03/06/25 08:30 Dose: 5 mg Amoxicillin/Clavulanate Potassium (Amoxicillin/Potassium Clav 875 Mg Tablet) 875 mg PO BID [facility] Last Admin: 03/06/25 08:30 Dose: 875 mg Bacitracin (Bacitracin Oint 14 Gm Tube) 1 appl TOPICAL BID JULIANNE; Protocol Last Admin: 03/06/25 08:34 Dose: 1 appl Bisacodyl (Bisacodyl 10 Mg Supp.Rect) 10 mg MI BEDTIME PRN PRN Reason: Constipation Calcium Carbonate (Calcium Carbonate 750 Mg Tab.Chew) 750 mg PO Q4H PRN PRN Reason: Heartburn Calcium Carbonate (Calcium Oyster Shell Elemental 500 Mg Tablet) 500 mg PO BID [facility] Last Admin: 03/06/25 08:35 Dose: Not Given Dextrose (Dextrose 50 % 25 Gm/50 Ml Syringe) 25 gm IVPUSH Q15M PRN; Protocol PRN Reason: per Hypoglycemia Standing Ord. Duloxetine HCl (Duloxetine Hcl 20 Mg Capsule.Dr) 20 mg PO DAILY [facility] Last Admin: 03/06/25 08:30 Dose: 20 mg Gabapentin (Gabapentin 300 Mg Capsule) 300 mg PO BID [facility] Last Admin: 03/06/25 08:30 Dose: 300 mg Glucose (Glucose Gel 15 Gm Gel..Gram.) 15 gm PO Q15M PRN; Protocol PRN Reason: per Hypoglycemia Standing Ord. Hydroxyzine HCl (Hydroxyzine Hcl 25 Mg Tablet) 25 mg PO Q8H PRN PRN Reason: Anxiety Lactated Ringer's (Lr) 1,000 mls @ 80 mls/hr IVCONT .[id number] [facility] Last Admin: 03/06/25 10:11 Dose: 80 mls/hr Insulin Human Lispro (Insulin Lispro 100 Unit/Ml 3 Ml Vial) 0 unit SUBCUT Q6H [facility]; Protocol Last Admin: 03/06/25 05:24 Dose: Not Given Ketotifen Fumarate (Ketotifen Fumarate 0.025% Oph 5 Ml Drpbtl) 1 drop EYE-BOTH Q12H PRN PRN Reason: Eye Irritation Levothyroxine Sodium (Levothyroxine Sodium 100 Mcg Tablet) 100 mcg PO DAILY@0600 [facility] Last Admin: 03/06/25 05:35 Dose: 100 mcg Magnesium Hydroxide (Milk Of Magnesia 30 Ml Oral.Susp) 30 ml PO DAILY PRN PRN Reason: Constipation Melatonin (Melatonin 3 Mg Tablet) 3 mg PO BEDTIME [facility] Last Admin: 03/05/25 21:03 Dose: 3 mg Morphine Sulfate (Morphine Sulfate 2 Mg/Ml Cartridge) 2 mg IVPUSH Q4H PRN; Protocol PRN Reason: Pain, Severe (Pain Scale 7-10) Last Admin: 03/06/25 03:21 Dose: 2 mg Non-Formulary Medication (Dulaglutide [Trulicity]) 3 mg SUBCUT FR [facility] Ondansetron HCl (Ondansetron Hcl 4 Mg/2 Ml Vial) 4 mg IVPUSH Q8H PRN PRN Reason: Nausea and Vomiting Oxycodone HCl (Oxycodone Hcl Immed Release 5 Mg Tablet) 5 mg PO Q6H PRN PRN Reason: Pain, Moderate(Pain Scale 4-6) Last Admin: 03/06/25 05:35 Dose: 5 mg Pantoprazole Sodium (Pantoprazole Sodium 40 Mg/10 Ml Vial) 40 mg IVPUSH BID@0630,1630 [facility] Last Admin: 03/06/25 05:35 Dose: 40 mg Polyethylene Glycol (Polyethylene Glycol 3350 17 Gm Powd.Pack) 17 gm PO DAILY PRN PRN Reason: Constipation Sodium Chloride (0.9 % Sodium Chloride Flush 3 Ml Syringe) 3 ml IVFLUSH QSHIFT [facility] Last Admin: 03/06/25 08:30 Dose: 3 ml Trazodone HCl (Trazodone Hcl 50 Mg Tablet) 150 mg PO BEDTIME [facility] Last Admin: 03/05/25 21:03 Dose: 150 mg Home Medications ?Medication ?Instructions ?Recorded ?Confirmed ?Last Taken ?Type atorvastatin 80 mg tablet 80 mg PO BEDTIME 04/07/21 03/04/25 10/05/24 History duloxetine 20 mg capsule,delayed 20 mg PO DAILY 03/18/24 03/04/25 04/05/24 History release omeprazole 40 mg capsule,delayed 40 mg PO DAILY@0630 03/18/24 03/04/25 10/06/24 History release aspirin 81 mg tablet,delayed 81 mg PO BEDTIME 06/11/24 03/04/25 10/06/24 History release oxycodone-acetaminophen 5 mg-325 1 tab PO Q6H PRN Severe Pain 06/11/24 03/04/25 10/06/24 History mg tablet (Scale Score 7-10) ketotifen fumarate 0.025 % (0.035 1 drp ophthalmic (eye) Q12H PRN 10/06/24 03/04/25 Unknown History %) eye drops (Eye Itch Relief) Eye Irritation trazodone 150 mg tablet 150 mg PO BEDTIME 10/06/24 03/04/25 10/05/24 History calcium carbonate (Oyster Shell 500 mg PO BID 12/06/24 03/04/25 Unknown History Calcium 500) hydroxyzine HCl 25 mg tablet 25 mg PO Q8H PRN anxiety 12/06/24 03/04/25 Unknown History insulin degludec 200 unit/mL (3 64 unit subcut DAILY 12/06/24 03/04/25 Unknown History mL) subcutaneous pen (Tresiba FlexTouch U-200 insulin) melatonin 3 mg tablet 3 mg PO BEDTIME 12/06/24 03/04/25 Unknown History albuterol sulfate 2.5 mg/3 mL 2.5 mg inhalation Q6H PRN 03/04/25 03/04/25 Unknown History (0.083 %) solution for nebulization Shortness Of Breath Or Wheezing albuterol sulfate 90 mcg/actuation 2 puff inhalation QID PRN 03/04/25 03/04/25 Unknown History aerosol inhaler Shortness Of Breath Or Wheezing amoxicillin 875 mg-potassium 1 tab PO Q12H 03/04/25 03/04/25 03/02/25 History clavulanate 125 mg tablet bacitracin 500 unit/gram topical 1 appl topical BID 03/04/25 03/04/25 Unknown History ointment dulaglutide 3 mg/0.5 mL 3 mg subcut FR 03/04/25 03/04/25 Unknown History subcutaneous pen injector (Trulicity) gabapentin 300 mg capsule 300 mg PO BID 03/04/25 03/04/25 Unknown History levothyroxine 75 mcg tablet 75 mcg PO DAILY@0600 03/04/25 03/04/25 Unknown History Exam Height,Weight and Vital Signs: Height 5 ft Weight 111.6 kg Last Vital Signs Temp 97.8 F 03/06/25 10:11 Pulse 62 03/06/25 10:11 Resp 14 03/06/25 10:11 BP 159/61 H 03/06/25 10:11 Pulse Ox 97 03/06/25 10:11 O2 Del Method Nasal Cannula 03/06/25 10:11 O2 Flow Rate 2 03/06/25 10:11 Pertinent Lab Results Pertinent Lab Results: Laboratory Tests 03/03/25 03/03/25 03/03/25 17:30 19:03 20:16 WBC 7.5 RBC 3.09 L Hgb 6.3 L* D Hct 22.1 L D MCV 71.5 L MCH 20.4 L MCHC 28.5 L RDW 17.1 H Plt Count 327 D MPV 10.0 Immature Gran % (Auto) 1.1 H Neut % (Auto) 74.9 H Lymph % (Auto) 11.0 L [place] % (Auto) 9.3 Eos % (Auto) 2.9 Baso % (Auto) 0.8 Lymph # (Auto) 0.8 L [place] # (Auto) 0.7 Eos # (Auto) 0.2 Baso # (Auto) 0.1 Abs Immat Gran (auto) 0.08 H Absolute Neuts (auto) 5.6 Absolute Nucleated RBC 0.020 H Nucleated RBC % (auto) 0.3 H VBG pH VBG pCO2 VBG pO2 VBG HCO3 VBG O2 Saturation VBG Base Excess Sodium 135 Potassium 4.7 Chloride 96 Carbon Dioxide 30 H Anion Gap 14 BUN 26 H Creatinine 1.44 H Estim Creat Clear Calc 38.6 Estimated GFR 35 POC Glucose Random Glucose 370 H* Lactic Acid Calcium 7.9 L D Phosphorus 3.1 Magnesium 1.9 Iron 10 L TIBC 209 L % Saturation 5 L Unsat Iron Binding 199 Total Bilirubin 0.3 AST 17 ALT < 6 Alkaline Phosphatase 73 Troponin I High Sens 14.8 D 17.0 B-Natriuretic Peptide 337 H Total Protein 6.7 Albumin 2.8 L TSH 10.41 H Free T4 0.88 Urine Color Urine Appearance Urine pH Ur Specific [place] Urine Protein Urine Glucose (UA) Urine Ketones Urine Blood Urine Nitrite Ur Leukocyte Esterase Stool Occult Blood NEGATIVE Blood Type A Positive Antibody Screen NEGATIVE Crossmatch See Detail 03/03/25 03/03/25 03/03/25 22:10 22:14 23:40 WBC RBC Hgb Hct MCV MCH MCHC RDW Plt Count MPV Immature Gran % (Auto) Neut % (Auto) Lymph % (Auto) [place] % (Auto) Eos % (Auto) Baso % (Auto) Lymph # (Auto) [place] # (Auto) Eos # (Auto) Baso # (Auto) Abs Immat Gran (auto) Absolute Neuts (auto) Absolute Nucleated RBC Nucleated RBC % (auto) VBG pH 7.44 H VBG pCO2 58 VBG pO2 43 VBG HCO3 39 H VBG O2 Saturation TNP VBG Base Excess 13.9 Sodium Potassium Chloride Carbon Dioxide Anion Gap BUN Creatinine Estim Creat Clear Calc Estimated GFR POC Glucose 231 H Random Glucose Lactic Acid 1.0 Calcium Phosphorus Magnesium Iron TIBC % Saturation Unsat Iron Binding Total Bilirubin AST ALT Alkaline Phosphatase Troponin I High Sens B-Natriuretic Peptide Total Protein Albumin TSH Free T4 Urine Color Urine Appearance Urine pH Ur Specific [place] Urine Protein Urine Glucose (UA) Urine Ketones Urine Blood Urine Nitrite Ur Leukocyte Esterase Stool Occult Blood Blood Type Antibody Screen Crossmatch 03/04/25 03/04/25 03/04/25 01:58 03:59 05:55 WBC 8.4 RBC 3.85 L D Hgb 8.5 L D Hct 29.3 L D MCV 76.1 L MCH 22.1 L MCHC 29.0 L RDW 18.6 H Plt Count 343 MPV 10.1 Immature Gran % (Auto) 1.4 H Neut % (Auto) 70.1 Lymph % (Auto) 11.9 L [place] % (Auto) 11.7 H Eos % (Auto) 4.0 Baso % (Auto) 0.9 Lymph # (Auto) 1.0 L [place] # (Auto) 1.0 Eos # (Auto) 0.3 Baso # (Auto) 0.1 Abs Immat Gran (auto) 0.12 H Absolute Neuts (auto) 5.9 Absolute Nucleated RBC 0.050 H Nucleated RBC % (auto) 0.6 H VBG pH VBG pCO2 VBG pO2 VBG HCO3 VBG O2 Saturation VBG Base Excess Sodium 137 Potassium 4.5 Chloride 97 Carbon Dioxide 32 H Anion Gap 13 BUN 22 H Creatinine 1.24 Estim Creat Clear Calc 44.5 Estimated GFR 42 POC Glucose 220 H Random Glucose 191 H Lactic Acid Calcium 8.4 D Phosphorus Magnesium Iron TIBC % Saturation Unsat Iron Binding Total Bilirubin 0.9 AST 17 ALT < 6 Alkaline Phosphatase 75 Troponin I High Sens B-Natriuretic Peptide Total Protein 6.5 Albumin 2.8 L TSH Free T4 Urine Color Yellow Urine Appearance Clear Urine pH 7.0 Ur Specific [place] 1.010 Urine Protein Negative Urine Glucose (UA) Negative Urine Ketones Negative Urine Blood Negative Urine Nitrite Negative Ur Leukocyte Esterase Negative Stool Occult Blood Blood Type Antibody Screen Crossmatch 03/04/25 03/04/25 03/04/25 05:59 10:29 16:11 WBC RBC Hgb Hct MCV MCH MCHC RDW Plt Count MPV Immature Gran % (Auto) Neut % (Auto) Lymph % (Auto) [place] % (Auto) Eos % (Auto) Baso % (Auto) Lymph # (Auto) [place] # (Auto) Eos # (Auto) Baso # (Auto) Abs Immat Gran (auto) Absolute Neuts (auto) Absolute Nucleated RBC Nucleated RBC % (auto) VBG pH VBG pCO2 VBG pO2 VBG HCO3 VBG O2 Saturation VBG Base Excess Sodium Potassium Chloride Carbon Dioxide Anion Gap BUN Creatinine Estim Creat Clear Calc Estimated GFR POC Glucose 151 H 137 H 208 H Random Glucose Lactic Acid Calcium Phosphorus Magnesium Iron TIBC % Saturation Unsat Iron Binding Total Bilirubin AST ALT Alkaline Phosphatase Troponin I High Sens B-Natriuretic Peptide Total Protein Albumin TSH Free T4 Urine Color Urine Appearance Urine pH Ur Specific [place] Urine Protein Urine Glucose (UA) Urine Ketones Urine Blood Urine Nitrite Ur Leukocyte Esterase Stool Occult Blood Blood Type Antibody Screen Crossmatch 03/04/25 03/05/25 03/05/25 23:36 05:53 11:59 WBC RBC Hgb Hct MCV MCH MCHC RDW Plt Count MPV Immature Gran % (Auto) Neut % (Auto) Lymph % (Auto) [place] % (Auto) Eos % (Auto) Baso % (Auto) Lymph # (Auto) [place] # (Auto) Eos # (Auto) Baso # (Auto) Abs Immat Gran (auto) Absolute Neuts (auto) Absolute Nucleated RBC Nucleated RBC % (auto) VBG pH VBG pCO2 VBG pO2 VBG HCO3 VBG O2 Saturation VBG Base Excess Sodium Potassium Chloride Carbon Dioxide Anion Gap BUN Creatinine Estim Creat Clear Calc Estimated GFR POC Glucose 140 H 147 H 171 H Random Glucose Lactic Acid Calcium Phosphorus Magnesium Iron TIBC % Saturation Unsat Iron Binding Total Bilirubin AST ALT Alkaline Phosphatase Troponin I High Sens B-Natriuretic Peptide Total Protein Albumin TSH Free T4 Urine Color Urine Appearance Urine pH Ur Specific [place] Urine Protein Urine Glucose (UA) Urine Ketones Urine Blood Urine Nitrite Ur Leukocyte Esterase Stool Occult Blood Blood Type Antibody Screen Crossmatch 03/05/25 03/05/25 03/05/25 15:36 16:49 23:31 WBC 7.0 RBC 4.04 L Hgb 8.8 L Hct 31.3 L MCV 77.5 L MCH 21.8 L MCHC 28.1 L RDW 19.2 H Plt Count 378 MPV 9.6 Immature Gran % (Auto) Neut % (Auto) Lymph % (Auto) [place] % (Auto) Eos % (Auto) Baso % (Auto) Lymph # (Auto) [place] # (Auto) Eos # (Auto) Baso # (Auto) Abs Immat Gran (auto) Absolute Neuts (auto) Absolute Nucleated RBC 0.020 H Nucleated RBC % (auto) 0.3 H VBG pH VBG pCO2 VBG pO2 VBG HCO3 VBG O2 Saturation VBG Base Excess Sodium Potassium Chloride Carbon Dioxide Anion Gap BUN Creatinine Estim Creat Clear Calc Estimated GFR POC Glucose 137 H 134 H Random Glucose Lactic Acid Calcium Phosphorus Magnesium Iron TIBC % Saturation Unsat Iron Binding Total Bilirubin AST ALT Alkaline Phosphatase Troponin I High Sens B-Natriuretic Peptide Total Protein Albumin TSH Free T4 Urine Color Urine Appearance Urine pH Ur Specific [place] Urine Protein Urine Glucose (UA) Urine Ketones Urine Blood Urine Nitrite Ur Leukocyte Esterase Stool Occult Blood Blood Type Antibody Screen Crossmatch 03/06/25 03/06/25 05:22 06:47 WBC 6.6 RBC 3.80 L Hgb 8.5 L Hct 29.3 L MCV 77.1 L MCH 22.4 L MCHC 29.0 L RDW 19.6 H Plt Count 365 MPV 9.3 L Immature Gran % (Auto) Neut % (Auto) Lymph % (Auto) [place] % (Auto) Eos % (Auto) Baso % (Auto) Lymph # (Auto) [place] # (Auto) Eos # (Auto) Baso # (Auto) Abs Immat Gran (auto) Absolute Neuts (auto) Absolute Nucleated RBC 0.000 Nucleated RBC % (auto) 0.0 VBG pH VBG pCO2 VBG pO2 VBG HCO3 VBG O2 Saturation VBG Base Excess Sodium 142 Potassium 4.0 Chloride 101 Carbon Dioxide 33 H Anion Gap 12 BUN 14 Creatinine 1.00 Estim Creat Clear Calc 55.2 Estimated GFR 54 POC Glucose 139 H Random Glucose 141 H Lactic Acid Calcium 8.1 L Phosphorus Magnesium Iron TIBC % Saturation Unsat Iron Binding Total Bilirubin AST ALT Alkaline Phosphatase Troponin I High Sens B-Natriuretic Peptide Total Protein Albumin TSH Free T4 Urine Color Urine Appearance Urine pH Ur Specific [place] Urine Protein Urine Glucose (UA) Urine Ketones Urine Blood Urine Nitrite Ur Leukocyte Esterase Stool Occult Blood Blood Type Antibody Screen Crossmatch Airway Mallampati Class: IV TM Dist: >3cm Neck ROM: Limited Loose/Missing/Broken Teeth: Yes, Upper and Lower Assessment and Plan Assessment Anesthesia Assessment: Anesthesia Plan Discussed and Chart Reviewed Final Anesthetic Review Family History of Problems with Anesthesia: No History of Problems with Anesthesia: No NPO: Yes ASA Class: III Final Preanesthetic Review: No Changes in Pt Med Stat, Meds/Allgs Chart Reviewed, Consent Obtained/Reviewed and Anes Risks/Benef Reviewed Patient Risk: Intermediate Procedure Risk: Low Anesthetic Plan Anesthetic Plan: TIVA Disposition: Standard PACU
--- NOTE | 2025-03-06 11:40 | P.BOP_ITS ---
Brief Operative Note Date of Service: 03/14/25 Pre-op diagnosis: ry Post-op diagnosis: same Procedure: egd colonoscopy Surgeon: João Leon MD Anesthesia: MAC Was an Powerhouse Mechanic Supervisor used for this Procedure?: No Estimated blood loss (mL): 5 Pathology: other Condition: stable Disposition: PACU
--- NOTE | 2025-03-06 11:46 | PM.EVENT ---
Event Note Date of Service: 03/06/25 Event Note: EGD colon mild esophagitis and gastritis,bx'd several colon polyps, snared/cauterized rec: advance diet restart anticoagulation in 3 days. Time Spent With Patient Time: Total time managing care of this patient today ____ minutes.
[2025-03-06 12:50] LABS: Glucose, Whole Blood 138 mg/dL (60-115)
[2025-03-06 17:56] LABS: Glucose, Whole Blood 203 mg/dL (60-115)
[2025-03-06] MEDS: Calcium Oyster Shell Elemental 500 MG TABLET PO (21:10)
--- NOTE | 2025-03-06 21:21 | OP_ITS ---
DATE OF SERVICE: 03/06/2025 SURGEON: João Leon MD INDICATIONS: Iron deficiency anemia. PREOPERATIVE DIAGNOSIS: POSTOPERATIVE DIAGNOSIS: PROCEDURE PERFORMED: Upper endoscopy with biopsy, colonoscopy to the cecum with snare polypectomy and cauterization of colon polyps. ESTIMATED BLOOD LOSS: COMPLICATIONS: ANESTHESIA: Monitored anesthesia care. ASSISTANTS: SPECIMENS: DESCRIPTION OF PROCEDURE: A history and physical was performed. The risks and benefits of the procedure were explained to the patient. Informed consent was obtained. The patient was placed in the left lateral decubitus position. A digital rectal exam was performed prior to the colonoscopy. The Olympus video gastroscope was introduced into the esophagus, stomach, and duodenum. Examination was performed, and the scope was removed. She was repositioned for colonoscopy. The rectal examination was normal. The Olympus pediatric video colonoscope was introduced into the rectum and advanced in the cecum. The cecum was identified by transillumination, palpation, and identification of ileocecal valve. Examination was performed. The scope was removed. She tolerated both procedures well and was returned to the recovery area in stable condition. FINDINGS: Upper endoscopy: 1. Esophagus: The esophagus showed a mild distal esophagitis. 2. Stomach: Stomach showed a mild gastritis. Biopsies were obtained from the antrum. 3. Duodenum: The bulb and 2nd portion were normal. This was biopsied. Colonoscopy: The terminal ileum was not examined. The views of the cecum were limited due to looping in the sigmoid despite application of abdominal wall pressure. No mass lesions were identified. In the right colon was a 12 mm polyp, which was removed with a snare and recovered via withdrawal of the colonoscope with a Contreras net. There was a 15 mm lipoma adjacent to the polyp. A 2nd polyp was snared and removed by suction. This was located at 90 cm. A 3rd polyp at 75 cm was cauterized using the tip of the snare. This measured less than 5 mm. There was some liquid stool limiting the sensitivity examination for detection of small polyps. The procedure was prolonged and difficult due to looping in the sigmoid, and the need for multiple reinserted of the colonoscope as well as locating polyps. Retroflexed examination showed some small internal hemorrhoids. IMPRESSION: 1. Gastritis. 2. Esophagitis. 3. Colon polyps. RECOMMENDATION: Follow up the biopsy results. MD CHASE Mccann/CLEMENTE / [id number]
[2025-03-06 23:19] LABS: Glucose, Whole Blood 185 mg/dL (60-115)
[2025-03-07] VITALS: PULSE 71; RESP 18; TEMP 36.7; O2SAT 95
[2025-03-07 03:59] VITALS: BP 146/80; PULSE 63; RESP 18; TEMP 36.3; O2SAT 97
[2025-03-07 05:58] LABS: Glucose, Whole Blood 179 mg/dL (60-115)
[2025-03-07 08:00] VITALS: BP 158/70; PULSE 58; RESP 18; TEMP 36.2; O2SAT 97
--- NOTE | 2025-03-07 08:59 | HO.POSTANES ---
Post Anesthesia Evaluation Post Anesthesia Evaluation Date of Service: 03/07/25 Vital Signs: Vital Signs Temp Pulse Resp BP Pulse Ox O2 Del Method O2 Flow Rate 03/07/25 08:00 97.2 F 58 18 158/70 H 97 Nasal Cannula 3 03/07/25 03:59 97.3 F 63 18 146/80 H 97 Nasal Cannula 2 03/07/25 00:00 98.0 F 71 18 95 Nasal Cannula 2 03/06/25 23:21 148/68 H Anesthesia: Monitored Mental Status: Awake Pain Control: Satisfactory Nausea/Vomiting: None Hydration: Adequate Anesthesia-Related Issues: No Anes. Related Issues
[2025-03-07] MEDS: Calcium Oyster Shell Elemental 500 MG TABLET PO (09:08)
--- NOTE | 2025-03-07 10:27 | PM.DS ---
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 Pain in the right shoulder was so bad that patient was crying. Upon arrival to the ED the pain and sensation of pressure resolved. In addition patient reports that her abdomen has gotten grossly larger in the last 2 months. Patient is on Trulicity. Pt stopped her trulicity 2 weeks ago per her provider because she was having GI symptoms. Patient does use oxygen at home for her CHF and is normally on a baseline of 2 L nasal cannula. Patient has no history of smoking or secondhand smoke exposure. Patient denies any bloody/ tarry stool, nausea or vomiting. Patient denies any loss of appetite. Patient is normally wheelchair-bound with profound neuropathy. Patient does not receive PT at home. Patient also offers that she is chronically incontinent of urine. In the emergency room patient's hemoglobin 6.3 and hematocrit 22.1. Patient is on Eliquis. Patient does have evidence of iron deficiency. Patient was started on 2 units PRBCs transfused slowly noting history of heart failure. Patient will receive Lasix in between. Iron levels low. Stool for occult initially negative. CT of the abdomen and pelvis notes dysmotility vs enteritis, no bowel obstruction noted. Chest x-ray negative for any acute findings. Patient denies history of ever having a colonoscopy or upper scope. Patient does have mild GERD symptoms at this time. Patient continues to have right shoulder pain with noted right rotator cuff tear history. Patient has a unable to lift her arm above shoulder height. There is no warmth or swelling noted at the right shoulder joint. Patient can tolerate passive range of motion. Patient was treated in December of 2024 for right shoulder effusion. Her cultures came back negative. It does not appear that patient followed up with orthopedics status post that admission. Incidentally labs note a subclinical hypothyroidism presentation with a TSH of 10.41 and a FT4 0.88. UA with reflex is currently pending as patient reports ongoing issues with incontinence and sometimes burning with urination. Hospital course: 74-year-old female with past medical history CKD stage 3, IDDM, ANILA not on CPAP, AFIB on Eliquis, HLD, HTN, Hypothyroidism, CAD, osteoporosis, HFpEF, arthritis, asthma, fibromyalgia, right rotator cuff tear, recent right shoulder effusion cultures negative status post aspiration, ventral hernia repair with mesh, presented with chest pain and found to have profound anemia Hgb of 6 on Eliquis. She was admitted for further work up and treatrment Problems Acute blood loss anemia, Iron deficiency, concern for GIB, on Eliquis. Hemoglobin was 6.3 and she was transfused 2 units of RBC and has since improved to 8.5 and has stay steady for 3 days. She was given IV PPI. She underwent EGD and colonocopy by Dr. Leon on 03/06 with the following finding and recommendations: mild esophagitis and gastritis,bx'd several colon polyps, snared/cauterized rec: advance diet restart anticoagulation in 3 days. Chest Pain--resolved hold further testing at this time Chronic AFIB, rate controlled. Eliquis on hold and will be restarted in 3 days Dysmotility due to GLP-[address] no obstruction Trulicity-Patient was told to stop. Last dose about 1 mo. ago HFpEF/ III/ systolic murmur (EF 55-60% 06/2024)- hx of mild aortic stenosis/ HX of mild asc aortic dilatation, presently euvolemic hold diuretic for now R shoulder pain/ Recent R shoulder Effusion/ Rotator Cuff Tear (chronic) Outpatient follow up, OTC pain med IDDM resume home meds Hypothyroidism on Levothyroxine TSH 10.41, FT4 0.88 Increase levothyroxine to 100 Morbid Obesity/ WC bound Nutritional consultation ordered Pt cannot tolerate GLP-1 medications Time Attestation Discharge Coordination Time (in mins): 45 Quality: Safe Use of Opioids Does Pt have an Active Cancer Diagnosis on the Problem List?: No Quality: Stroke Does the patient have a stroke diagnosis?: No Physical Exam Exam: Exam: Constitutional: Alert, in no distress, overweight. Mental Status: Oriented to person, place and time. Respiratory: 2l via NC. bilateral upper lobes CTA, slight fine crackle to bilateral bases Cardiovascular: S1 S2 regular. No rubs or gallops. Gastrointestinal: Abdomen large, round and distended, soft, non-tender. Normal bowel sounds.? Neurologic: Cranial nerves II-XII grossly intact. No focal neurological deficits. Moves all extremities spontaneously.? Skin: No rashes or lesions.? Musculoskeletal: No cyanosis or clubbing. Psychiatric: Normal mood and affect? Vital Signs: Vital Signs: Last Vital Signs Temp 97.2 F 03/07/25 08:00 Pulse 58 03/07/25 08:00 Resp 18 03/07/25 08:00 BP 158/70 H 03/07/25 08:00 Pulse Ox 97 03/07/25 08:00 O2 Del Method Nasal Cannula 03/07/25 08:00 O2 Flow Rate 3 03/07/25 08:00 BMI result Body Mass Index 48.0 DS: Data Data Completed and Pending Completed studies during hospitalization [Text1]: Procedures Transfusion of Nonautologous Red Blood Cells into Peripheral Vein, Percutaneous Approach (08/02/24) Pending studies at discharge: Pending at discharge 03/06/25 11:37 Surgical [PTH] Routine Labs on day of discharge: Laboratory Results - last 24 hr 03/06/25 03/06/25 03/06/25 12:43 17:35 23:13 POC Glucose 138 H 203 H 185 H 03/07/25 05:52 POC Glucose 179 H Discharge Plan Discharge Anticipated Discharge Date/Time: 03/07/25 10:34 Patient Disposition: Home Health Service Discharge Diagnosis: GI bleeding, Acute blood loss anemia Referrals: [facility] [Outside] - 1 Week Amanda Watkins MD [Primary Care Provider, Internal Medicine] - 1 Week Discharge Medications: New levothyroxine [Synthroid] 100 mcg Tablet 100 mcg PO DAILY@0600 Qty: 90 0RF Continued atorvastatin 80 mg tablet 80 mg PO BEDTIME omeprazole 40 mg capsule,delayed release(DR/EC) 40 mg PO DAILY@0630 duloxetine 20 mg capsule,delayed release(DR/EC) 20 mg PO DAILY melatonin 3 mg tablet 3 mg PO BEDTIME calcium carbonate [Oyster Shell Calcium 500] 500 mg calcium (1,250 mg) tablet 500 mg PO BID Patient Comments: Applies to legs hydroxyzine HCl 25 mg tablet 25 mg PO Q8H PRN (Reason: anxiety) insulin degludec [Tresiba FlexTouch U-200] 200 unit/mL (3 mL) insulin pen 64 unit subcut DAILY oxycodone-acetaminophen 5-325 mg tablet 1 tab PO Q6H PRN (Reason: Severe Pain (Scale Score 7-10)) torsemide 20 mg tablet 20 mg PO DAILY Qty: 30 0RF amlodipine 5 mg Tablet 5 mg PO DAILY Qty: 30 0RF Protocol: Hold for SBP< HOLD for SBP < : 90 ketotifen fumarate [Eye Itch Relief] 0.025 % (0.035 %) drops 1 drp ophthalmic (eye) Q12H PRN (Reason: Eye Irritation) trazodone 150 mg tablet 150 mg PO BEDTIME albuterol sulfate 2.5 mg /3 mL (0.083 %) solution for nebulization 2.5 mg inhalation Q6H PRN (Reason: Shortness Of Breath Or Wheezing) bacitracin 500 unit/gram ointment 1 appl topical BID gabapentin 300 mg capsule 300 mg PO BID albuterol sulfate 90 mcg/actuation HFA aerosol inhaler 2 puff INHALATION QID PRN (Reason: Shortness Of Breath Or Wheezing) amoxicillin-pot clavulanate 875-125 mg tablet 1 tab PO Q12H Trulicity 3 mg/0.5 mL pen injector 3 mg subcut FR Held Eliquis 5 mg Tablet 5 mg PO BID Qty: 60 0RF Hold Instructions: Resume on 03/09/25. Discontinued aspirin 81 mg tablet,delayed release (DR/EC) 81 mg PO BEDTIME levothyroxine 75 mcg tablet 75 mcg PO DAILY@0600 Discharge Orders: Discharge Order (Routine); Ordered 03/07/25 Ordered By: Kevin Marinelli Diet: Advance to usual diet Activity on Discharge: As tolerated Stand Alone Forms: Patient Portal Discharge page Print Language: Telugu Care Plan Goals: recovery from gastrointestinal bleeding ane anemia Health Concerns: gastrointestinal bleeding ane anemia Plan of Treatment: stop taking aspirin' hold eliquis and restart on Wednesday first Follow up with your doctor in a week Assessment: see above
--- NOTE | 2025-03-07 10:40 | W.MHC.F2F ---
Service Date Service Date: 03/07/25 Encounter Date of encounter: 03/07/25 Reasons for Services Signs and symptoms assessed: acute blood loss anemia, weakness, left should pain Reason for senior care: CV/CP assess and/or care, medication management and teach disease management Reason for physical therapy: therapeutic exercises and restore joint function Homebound: Leaving the home is medically contraindicated at this time without the asist of a device and/or another person due th the listed conditions above and below. Reason homebound: fall risk related to blood pressure changes and weakness related to hospital stay Homebound supporting statement: Homebound due to weakness from hospitalization , chronic joint pain and therefore needs the assitance of another person Certification: Based on the above findings, I certify that this patient is confined to the home and needs intermittent senior care care, physical therapy and/or speech therapy, or continues to need occupational therapy. The patient is under my care, and I have initiated the establishment of the plan of care. The patient will be followed by a physician who will periodically review the plan of care. Time Spent With Patient Time: Total time managing care of this patient today ____ minutes.
--- NOTE | 2025-03-07 11:14 | MHC.CM.PN ---
Pt is medically cleared for discharge home with new [facility] services. This CM spoke with pts son/HCP Anatoliy who lives with her, he is in agreement with the discharge plan and states his sister, the pts daughter will transport their mother home today. Second IMM given 03/07.
[2025-03-07 11:29] LABS: Glucose, Whole Blood 278 mg/dL (60-115)
--- NOTE | 2025-03-07 11:37 | P.PNGI_ITS ---
Subjective Subjective Date of Service: 03/07/25 Interval History: doing well tolerating diet Critical Care Time (minutes): 0 Physical Exam 2 Vital Signs: Vital Signs: Last Vital Signs Temp 97.2 F 03/07/25 08:00 Pulse 58 03/07/25 08:00 Resp 18 03/07/25 08:00 BP 158/70 H 03/07/25 08:00 Pulse Ox 97 03/07/25 08:00 O2 Del Method Nasal Cannula 03/07/25 08:00 O2 Flow Rate 3 03/07/25 08:00 BMI result Body Mass Index 48.0 GI: Other: abdomen is soft and nontender Objective Data Labs 03/06/25 06:47 03/06/25 06:47 Labs: Laboratory Results - last 24 hr 03/06/25 03/06/25 03/06/25 12:43 17:35 23:13 POC Glucose 138 H 203 H 185 H 03/07/25 03/07/25 05:52 11:18 POC Glucose 179 H 278 H Procedures Date of Service Date of Service: 03/07/25 Progress Note: A&P Assessment and plan (1) Anemia: Status: Acute Assessment and Plan: doing well reviewed egd/colon findings with patient continue oral ppi as outpatient pathology pending. Time Spent With Patient Time: Total time managing care of this patient today ____ minutes. Quality Stroke Does the patient have a stroke diagnosis?: No Reason for No Anti-thrombotic by Day Two: Contraindicated VTE Prior VTE?: No VTE Risk Level:: Medical - moderate - high VTE Device Contraindication: N/A - Device Ordered VTE Drug Contraindication: Treatment Not Indicated
[2025-03-07 11:57] VITALS: BP 179/77; PULSE 61; RESP 17; TEMP 36.1; O2SAT 98
--- NOTE | 2025-03-08 10:01 | P.CDIM_ITS ---
PROVIDER RESPONSE TEXT: To clarify, the appropriate diagnosis supported by the clinical indicators: Iron deficiency anemia secondary to acute on chronic blood loss: suspected QUERY TEXT: PHYSICIAN'S DOCUMENTATION REQUEST Date of Query: 03/07/2025 11:03 AM EDT Patient Name: Mary Lou Godwin Admit Date: 03/04/2025 Dear Kevin Panda MD, A review of the medical record indicates additional documentation may be needed. Please review below and update the documentation accordingly. Clinical Indicators: LABS: Iron 28 L IV Iron Transfusion 2 units PRBC Based on the above, could you clarify which of the following is the most likely type of anemia you are evaluating, treating, and/or monitoring? Iron deficiency anemia secondary to acute on chronic blood loss possible, probable, suspected, cannot rule out etc. Iron deficiency anemia due to chronic blood loss possible, suspected, probable, etc. Other (explain) Clinically unable to determine (explain) Thank you, Elena Dalal, CCS, CDIS Use of terms such as suspected, likely, concern for, or probable (associated with a specific diagnosis that is being evaluated, monitored, or treated as if it exists) are acceptable and can be coded in the inpatient setting, when documented at the time of discharge. Please use your independent medical judgment in providing your response. THIS QUERY IS PART OF THE PERMANENT MEDICAL RECORD
--- NOTE | 2025-03-08 10:01 | P.CDIM_ITS ---
PROVIDER RESPONSE TEXT: To clarify, the appropriate diagnosis supported by the clinical indicators: Gastritis: acute QUERY TEXT: PHYSICIAN'S DOCUMENTATION REQUEST Date of Query: 03/07/2025 10:59 AM EDT Patient Name: Mary Lou Godwin Admit Date: 03/04/2025 Dear Kevin Panda MD, A review of the medical record indicates additional documentation may be needed. Please review below and update the documentation accordingly. Clinical Indicators: Progress notes and GI consultation: Mild Esophagitis and Gastritis, bx'd IV PPI EGD and colonoscopy completed on 03/06/25. Based on the above, could you clarify any further specifics to the documented Gastritis? Gastritis Acute, chronic, spastic, nervous, viral, hypertrophic, with bleeding etc. Other specified Other (explain) Clinically unable to determine (explain) Thank you, Elena Dalal, CCS, CDIS Use of terms such as suspected, likely, concern for, or probable (associated with a specific diagnosis that is being evaluated, monitored, or treated as if it exists) are acceptable and can be coded in the inpatient setting, when documented at the time of discharge. Please use your independent medical judgment in providing your response. THIS QUERY IS PART OF THE PERMANENT MEDICAL RECORD
== END 2025-03-07 13:53 | disposition home health service (06) | DRG 378 ==
LOC: HO.ED 17:35 → HO.EDOVER 21:39 → HO.IMC 03-04 00:15
PROVIDERS: Internal Medicine Gastroenterology; Nurse Practitioner Family; Admitting Provider Student in an Organized Health Care Education/Training Program; Emergency Provider Emergency Medicine Emergency Medical Services; PCP Internal Medicine; Visit Provider Internal Medicine
PROC: 0DB98ZX Excision of Duodenum, Via Natural or Artificial Opening Endoscopic, Diagnostic (ICD-10-PCS; principal; 2025-03-06 10:50)
DX: K29.01 Acute gastritis with bleeding (principal); D62 Acute posthemorrhagic anemia; I13.0 Hypertensive heart and chronic kidney disease with heart failure and stage 1 through stage 4 chronic kidney disease, or unspecified chronic kidney disease; I50.32 Chronic diastolic (congestive) heart failure; Z68.42 Body mass index [BMI] 45.0-49.9, adult; I48.20 Chronic atrial fibrillation, unspecified; K20.91 Esophagitis, unspecified with bleeding; N18.30 Chronic kidney disease, stage 3 unspecified; E11.22 Type 2 diabetes mellitus with diabetic chronic kidney disease; E66.01 Morbid (severe) obesity due to excess calories; K63.5 Polyp of colon; Z71.3 Dietary counseling and surveillance; E11.40 Type 2 diabetes mellitus with diabetic neuropathy, unspecified; T38.3X5A Adverse effect of insulin and oral hypoglycemic [antidiabetic] drugs, initial encounter; K58.9 Irritable bowel syndrome, unspecified; E03.8 Other specified hypothyroidism; M75.101 Unspecified rotator cuff tear or rupture of right shoulder, not specified as traumatic; K64.8 Other hemorrhoids; Z99.81 Dependence on supplemental oxygen; Z99.3 Dependence on wheelchair; Z79.01 Long term (current) use of anticoagulants; Z79.85 Long-term (current) use of injectable non-insulin antidiabetic drugs; Z79.899 Other long term (current) drug therapy
CPT/HCPCS: 36415; 71045; 73030; 74177; 80048; 80053; 81003; 82272; 82803; 82947; 83540; 83605; 83735; 83880; 84100; 84439; 84443; 84484; 85025; 85027; 86850; 86900; 86901; 86923; 88305; 88342; 93005; 97161; 99285; J0651; J1756; J1938; J2270; J2470; J7120; P9016

== ENCOUNTER → 2025-03-03 18:08 | Outpatient (BNV) | payer OTHER, SELFPAY | PROVIDERS: Emergency Provider Emergency Medicine Emergency Medical Services; PCP Internal Medicine; Visit Provider Radiology Diagnostic Radiology | DX: M25.511 Pain in right shoulder (principal) | CPT/HCPCS: 71045; 73030; 74177 ==

== ENCOUNTER → 2025-03-03 21:03 | Outpatient (BNV) | payer OTHER, SELFPAY | PROVIDERS: Admitting Provider Student in an Organized Health Care Education/Training Program; Emergency Provider Emergency Medicine Emergency Medical Services; PCP Internal Medicine; Visit Provider Nurse Practitioner Family | DX: D64.9 Anemia, unspecified (principal); D62 Acute posthemorrhagic anemia | CPT/HCPCS: 99223; 99232 ==

== ENCOUNTER 2025-03-09 12:50 | Emergency (ER) | payer OTHER, SELFPAY ==
--- NOTE | ~2025-03-09 | XR_ITS ---
EXAMINATION: XR SHOULDER, RIGHT CLINICAL INFORMATION: pain rt shoulder, no injury, ? hx of gout COMPARISON: March 03, 2025 TECHNIQUE: AP external rotation, Grashey, scapular Y, and axillary views of the right shoulder. FINDINGS: There is no visible dislocation. There is a small focal concavity involving the superior humeral head. There is degenerative irregularity involving the junction of greater tuberosity and anatomic neck of humerus. AC joint is not well demonstrated but shows degenerative irregularity and possible erosive change.. XR/XR shoulder RT min 2V IMPRESSION: Moderate degenerative change involving the glenohumeral joint with possible erosion at the lateral anatomic neck humerus and superior humeral head. This could be related to an inflammatory arthropathy, septic arthritis is not ruled out. Degenerated and irregular AC joint. Electronically signed by: Cholo Flores MD 03/09/2025 03:26 PM EDT
[2025-03-09 13:02] VITALS: BP 140/80; BP 181/73; PULSE 62; PULSE 67; RESP 20; TEMP 36.8; O2SAT 95; O2SAT 98; BMI 37.5
[2025-03-09 13:08] LABS: Glucose, Whole Blood 336 mg/dL (60-115)
--- OUTSIDE RECORDS SUMMARY | 2025-03-09 13:28 | XMS_ITS | Patient Health Record ---
Author Organization [facility] Address [address] [place] [address] Care Team Providers Care Milk Route Deliverer Name Role Phone Amanda Adame M.D. Primary Care Provider João Woodward Jr Results Component Value Reference Range Notes Pathology (Not yet reviewed by provider) Interpretation: Performing Lab:[facility], [address] [place] [id number] Notes/Report: Reason For Referral No Information Encounters Encounter Location Date Provider Diagnosis [facility] [place] [facility] [address] [place] [id number] 03/06/2025 João Leon Jr Plan Of Treatment Pending Test Test Name Order Date Pathology 03/06/2025 Insurance Providers Payer Name Payer Address Payer Phone Subscriber Number Group Number Insured Name Patient Relationship to Insured Coverage Start Date Coverage End Date [facility] [address] Attn Claims CARLOS Varma [id number] JP MORGAN Self - patient is the insured
--- OUTSIDE RECORDS SUMMARY | 2025-03-09 13:28 | XMS_ITS | Clinical Summary ---
Author Organization [facility] Address [address] [place] [phone] Phone Care Team Providers Care Pattern Chain Maker Supervisor Name Role Phone Amanda Watkins MD [...] 12/06/2023, 07/16/2016, 02/17/2013, Additional history exists Insurance [facility] MCR ([id number]) CARLOS LOPES [id number] [place] [id number] [facility] ([id number]) CARLOS LOPES [id number] Care Teams Pattern Chain Maker Supervisor Relationship Specialty Start Date End Date Amanda Watkins MD [address] [place] [phone] PCP - General Internal Medicine 03/01/23
--- OUTSIDE RECORDS SUMMARY | 2025-03-09 13:28 | XMS_ITS | Continuity of Care Document ---
Author Name Parish Martinez Address [address] [place] [id number] Organization Unknown Address [address] [place] [address] Medications No known medications Problems No known problems
--- NOTE | 2025-03-09 14:12 | ED.GENADULT ---
HPI - General Adult General Chief complaint: General Medical Stated complaint: ARM PAIN, POC 529 Time Seen by Provider: 03/09/25 14:12 History of Present Illness ED Provider: Rupinder EDWARDS narrative: The patient is a 74-year-old female with a history of multiple medical problems. She has a history of kidney disease, insulin-requiring diabetes, atrial fibrillation on apixaban, obstructive sleep apnea not on CPAP, hyperlipidemia, hypertension, hypothyroidism, coronary artery disease, heart failure with preserved ejection fraction, mild aortic stenosis, arthritis, asthma, fibromyalgia. She was just admitted to the hospital for 5 days. She was admitted on March 03 and was discharged 2 days ago on March 07. She has been admitted for anemia. During the hospitalization she received blood transfusions and had upper endoscopy and colonoscopy on March 04. Findings included mild esophagitis and gastritis. She had several polyps which were biopsied. The patient has a history of chronic right shoulder pain attributed to a rotator cuff tear. She takes oxycodone at home. Today her shoulder was bothering her a lot, also her blood pressure was high and she thought her blood sugar was at 500 as well. Her granddaughter called 911 and she was brought to the hospital for evaluation. The patient is on 2 L nasal cannula of oxygen at home because of COPD. The patient lives in an apartment with her son. She his non-ambulatory. She gets around in a wheelchair. Related Data Home Medications ?Medication ?Instructions ?Recorded ?Confirmed atorvastatin 80 mg tablet 80 mg PO BEDTIME 04/07/21 03/04/25 duloxetine 20 mg capsule,delayed 20 mg PO DAILY 03/18/24 03/04/25 release omeprazole 40 mg capsule,delayed 40 mg PO DAILY@0630 03/18/24 03/04/25 release oxycodone-acetaminophen 5 mg-325 1 tab PO Q6H PRN Severe Pain 06/11/24 03/04/25 mg tablet (Scale Score 7-10) ketotifen fumarate 0.025 % (0.035 1 drp ophthalmic (eye) Q12H PRN 10/06/24 03/04/25 %) eye drops (Eye Itch Relief) Eye Irritation trazodone 150 mg tablet 150 mg PO BEDTIME 10/06/24 03/04/25 calcium carbonate (Oyster Shell 500 mg PO BID 12/06/24 03/04/25 Calcium 500) hydroxyzine HCl 25 mg tablet 25 mg PO Q8H PRN anxiety 12/06/24 03/04/25 insulin degludec 200 unit/mL (3 64 unit subcut DAILY 12/06/24 03/04/25 mL) subcutaneous pen (Tresiba FlexTouch U-200 insulin) melatonin 3 mg tablet 3 mg PO BEDTIME 12/06/24 03/04/25 albuterol sulfate 2.5 mg/3 mL 2.5 mg inhalation Q6H PRN 03/04/25 03/04/25 (0.083 %) solution for nebulization Shortness Of Breath Or Wheezing albuterol sulfate 90 mcg/actuation 2 puff inhalation QID PRN 03/04/25 03/04/25 aerosol inhaler Shortness Of Breath Or Wheezing amoxicillin 875 mg-potassium 1 tab PO Q12H 03/04/25 03/04/25 clavulanate 125 mg tablet bacitracin 500 unit/gram topical 1 appl topical BID 03/04/25 03/04/25 ointment dulaglutide 3 mg/0.5 mL 3 mg subcut FR 03/04/25 03/04/25 subcutaneous pen injector (Trulicity) gabapentin 300 mg capsule 300 mg PO BID 03/04/25 03/04/25 Previous Rx's ?Medication ?Instructions ?Recorded apixaban 5 mg tablet (Eliquis) 5 mg PO BID #60 tabs 11/03/23 Held on 03/07/25. Instructions: Resume on 03/09/25. amlodipine 5 mg tablet 5 mg PO DAILY #30 tabs 06/20/24 torsemide 20 mg tablet 20 mg PO DAILY #30 tabs 06/20/24 levothyroxine 100 mcg tablet 100 mcg PO DAILY@0600 #90 tabs 03/07/25 (Synthroid) Allergies Allergy/AdvReac Type Severity Reaction Status Date / Time codeine (CODEINE) Allergy Intermediate HALLUCINATI Verified 03/09/25 13:06 ONS Review of Systems Review of Systems: Yes all other systems are reviewed and are negative [facility] Past Medical History Medical History (Updated 03/09/25 @ 16:47 by Peña Bucio MD) Urinary incontinence (HFpEF) heart failure with preserved ejection fraction Anxiety Insomnia CKD (chronic kidney disease) CKD stage 3 due to type 2 diabetes mellitus Leg abrasion Abuse of non-prescription analgesics Type 2 diabetes mellitus with unspecified complications Other and unspecified hyperlipidemia Essential hypertension Atherosclerotic cardiovascular disease Urgency incontinence Osteoporosis Arthritis Asthma Hypertension Fibromyalgia Diabetes mellitus Surgical History (Updated 03/03/25 @ 23:08 by TOD Peter) H/O tubal ligation History of hernia repair Social History Social History Household Members: Children Household Members Other:: son Housing: Apartment Are you a primary career services coordinator to a significant other at home: No Do you presently have visiting nurse or other home services: No Unable to assess alcohol history related to: Unknown Alcohol intake: never 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 She seemed to be asleep and seemed to be comfortable when I first walked into the room. She was satting 99% on room air while sleeping. HENMT Other: Face is symmetrical. Mucous membranes moist. Eyes Other: Pupils are round equal, extraocular movements are intact, eyes are unremarkable Neck Other: The patient has a thick neck. No JVD apparent. Moving her neck easily Resp Effort & Inspection: normal respiratory effort Auscultation: clear to auscultation bilaterally Cardio Rate: regular rate Rhythm: regular rhythm Heart sounds: S1 normal heart sound present and S2 normal heart sound present GI Other: Abdomen is soft and nontender Skin Other: Skin is dry and unremarkable Neuro Other: The patient is awake and alert with a normal mental status. Extrem Other: No pitting edema to the lower legs. No asymmetry. No tenderness. The patient moves her left arm normally. She has a lot of pain in the region of the right shoulder and is very tender to palpation in the region of the right shoulder. I can put the right shoulder through a very small range of motion. The right elbow and forearm and hand are unremarkable. The shoulder is not red or warm. Medical Decision Making Medical Decision Making MDM Narrative: The patient is a 74-year-old female with multiple medical problems who was quite chronically ill and is nonambulatory at baseline who was discharged from the hospital 2 days ago after a hospitalization for anemia. She received blood transfusions. She had upper and lower endoscopy. No acute bleeding was found. Her apixaban was held during the hospitalization and she was advised to resume it 3 days after discharge. She has had chronic right shoulder pain for a long time. She has a lot of pain in the shoulder today. As far as I can tell this is an ongoing issue. She had an arthrocentesis 3 months ago that was negative for culture and also was negative for crystals. The patient seems to be under the impression she might have gout but I suspect that she simply has severe osteoarthritis and I think this is chronic. She has not yet managed to follow up with the an orthopedist. She came to the hospital today by ambulance. Apparently she was complaining of shoulder pain. She also says that her blood sugar was 500 at home. Apparently a family member was also concerned about her blood pressure. My overall impression is that the patient looks stable. She has right shoulder pain and tenderness but I think this is chronic. Her labs are essentially unremarkable and there are no findings which I feel require further pursuit or investigation today while in the emergency room the patient seemed to feel better and I felt she could be discharged. She seemed to be comfortable being discharged. She has oxycodone at home. She is advised to follow up with Orthopedics or Rheumatology regarding her right shoulder pain Lab Data 03/09/25 15:33 03/09/25 15:33 Labs: Lab Results 03/09/25 03/09/25 Range/Units 13:05 15:33 WBC 7.6 (4.8-10.8) X10*3/uL RBC 3.78 L (4.20-5.50) X10*6/uL Hgb 8.5 L (12.0-16.0) g/dl Hct 29.0 L (37.0-47.0) % MCV 76.7 L (80.0-98.0) fL MCH 22.5 L (27.0-33.0) pg MCHC 29.3 L (31.0-35.0) g/dl RDW 20.0 H (11.0-16.0) % Plt Count 381 (160-400) X10*3/uL MPV 9.3 L (9.4-12.3) fL Immature Gran % (Auto) 2.0 H (0.0-0.4) % Neut % (Auto) 69.9 (45-73) % Lymph % (Auto) 14.0 L (20-40) % Grand % (Auto) 9.6 (2-11) % Eos % (Auto) 3.8 (0-4) % Baso % (Auto) 0.7 (0-2) % Lymph # (Auto) 1.1 L (1.2-4.9) X10*3/uL Grand # (Auto) 0.7 (0.1-1.2) X10*3/uL Eos # (Auto) 0.3 (0.0-0.4) X10*3/uL Baso # (Auto) 0.1 (0.0-0.2) X10*3/uL Abs Immat Gran (auto) 0.15 H (0.00-0.03) X10*3/uL Absolute Neuts (auto) 5.3 (2.0-8.3) x10*3/uL Absolute Nucleated RBC 0.020 H (0.0-0.012) X10*3/uL Nucleated RBC % (auto) 0.3 H (0.0-0.2) /100WBC Sodium 139 (135-145) mmol/L Potassium 4.5 (3.3-5.1) mmol/L Chloride 98 (96-108) mmol/L Carbon Dioxide 34 H (22-29) mmol/L Anion Gap 12 (12-20) BUN 18 H (9-16) mg/dL Creatinine 1.23 (0.5-1.4) mg/dL Estim Creat Clear Calc 40.3 Estimated GFR 43 POC Glucose 336 H (60-115) mg/dL Random Glucose 321 H (60-115) mg/dL Uric Acid 7.8 H (2.4-5.7) mg/dL Calcium 8.3 L (8.4-10.2) mg/dL Magnesium 1.8 (1.6-2.6) mg/dL Total Bilirubin 0.3 (0.0-1.0) mg/dL Direct Bilirubin 0.1 (0.0-0.5) mg/dL AST 22 (5-31) U/L ALT < 6 (0-31) U/L Alkaline Phosphatase 74 (39-117) U/L Troponin I High Sens 11.0 (<3.5-17.0) ng/L C-Reactive Protein 4.69 H (< or = 0.50) mg/dL Total Protein 6.7 (6.5-8.0) g/dL Albumin 2.9 L (3.5-5.0) g/dL Influenza Type A (PCR) NEGATIVE (Negative) Influenza Type B (PCR) NEGATIVE (Negative) RSV RNA Qual (PCR) NEGATIVE (Negative) SARS-CoV-2 RNA (RT-PCR) NEGATIVE (Negative) Discharge Plan Discharge Clinical Impression: Chronic right shoulder pain, Arthritis of right shoulder, Diabetes, Hypertension Patient Disposition: Home, Self-Care Additional Instructions: Your blood testing today seems very stable. With regard to your right shoulder pain I think you should be seen either by an orthopedic doctor or by a engineer system administrator. Please contact your regular doctor's office for a referral to either the orthopedic office or the rheumatology office for further evaluation by a specialist of your shoulder pain. Continue all of your present medications. Return to the emergency room if significantly worse. Prescriptions: No Action atorvastatin 80 mg tablet 80 mg PO BEDTIME Eliquis 5 mg Tablet 5 mg PO BID Qty: 60 0RF omeprazole 40 mg capsule,delayed release(DR/EC) 40 mg PO DAILY@0630 duloxetine 20 mg capsule,delayed release(DR/EC) 20 mg PO DAILY melatonin 3 mg tablet 3 mg PO BEDTIME calcium carbonate [Oyster Shell Calcium 500] 500 mg calcium (1,250 mg) tablet 500 mg PO BID Patient Comments: Applies to legs hydroxyzine HCl 25 mg tablet 25 mg PO Q8H PRN (Reason: anxiety) insulin degludec [Tresiba FlexTouch U-200] 200 unit/mL (3 mL) insulin pen 64 unit subcut DAILY oxycodone-acetaminophen 5-325 mg tablet 1 tab PO Q6H PRN (Reason: Severe Pain (Scale Score 7-10)) torsemide 20 mg tablet 20 mg PO DAILY Qty: 30 0RF amlodipine 5 mg Tablet 5 mg PO DAILY Qty: 30 0RF Protocol: Hold for SBP< HOLD for SBP < : 90 ketotifen fumarate [Eye Itch Relief] 0.025 % (0.035 %) drops 1 drp ophthalmic (eye) Q12H PRN (Reason: Eye Irritation) trazodone 150 mg tablet 150 mg PO BEDTIME albuterol sulfate 2.5 mg /3 mL (0.083 %) solution for nebulization 2.5 mg inhalation Q6H PRN (Reason: Shortness Of Breath Or Wheezing) bacitracin 500 unit/gram ointment 1 appl topical BID gabapentin 300 mg capsule 300 mg PO BID albuterol sulfate 90 mcg/actuation HFA aerosol inhaler 2 puff INHALATION QID PRN (Reason: Shortness Of Breath Or Wheezing) amoxicillin-pot clavulanate 875-125 mg tablet 1 tab PO Q12H Trulicity 3 mg/0.5 mL pen injector 3 mg subcut FR levothyroxine [Synthroid] 100 mcg Tablet 100 mcg PO DAILY@0600 Qty: 90 0RF Referrals: [facility] [place] Orthopedic Surgeons [Provider Group] [facility] [place] Rheumatology Service [Provider Group, Rheumatology] Amanda Watkins MD [Primary Care Provider, Internal Medicine] Interventions: ED Discharge Assessment Last Done: 03/09/25 17:21 Discharge Date/Time: 03/09/25 17:22 Print Language: Kiswahili
--- NOTE | 2025-03-09 14:29 | ECG_ITS ---
Test Reason : sob Blood Pressure : */* mmHG Vent. Rate : 62 BPM Atrial Rate : 62 BPM P-R Int : 168 ms QRS Dur : 86 ms QT Int : 388 ms P-R-T Axes : 45 -34 92 degrees QTcB Int : 393 ms Normal sinus rhythm Left axis deviation Low voltage QRS Cannot rule out Anterior infarct (cited on or before 02-Aug-2024) Abnormal ECG When compared with ECG of 03-Mar-2025 16:41, Sinus rhythm has replaced Junctional rhythm Nonspecific T wave abnormality now evident in Lateral leads QT has shortened Referred By: Peña Bucio Electronically Signed By: TRINY SCHAFFER MD
[2025-03-09 15:43] LABS: MANUAL DIFF FLAG NO
[2025-03-09 15:44] LABS: Hematocrit 29.0 % (37.0-47.0); Hemoglobin 8.5 g/dl (12.0-16.0); Imm Gran Abs Auto 0.15 X10*3/uL (0.00-0.03); Imm Gran Pct Auto 2.0 % (0.0-0.4); Lymphocytes Absolute Auto 1.1 X10*3/uL (1.2-4.9); Mean Corpuscular HGB Conc 29.3 g/dl (31.0-35.0); Mean Corpuscular Hemoglobin 22.5 pg (27.0-33.0); Mean Corpuscular Volume 76.7 fL (80.0-98.0); NRBC Abs Auto 0.020 X10*3/uL (0.0-0.012); NRBC Pct Auto 0.3 /100WBC (0.0-0.2); Platelet Count 381 X10*3/uL (160-400); Red Blood Count 3.78 X10*6/uL (4.20-5.50); White Blood Count 7.6 X10*3/uL (4.8-10.8)
[2025-03-09 15:57] LABS: Uric Acid 7.8 mg/dL (2.4-5.7)
[2025-03-09 16:00] LABS: Alanine Aminotransferase < 6 U/L (0-31); Albumin Level 2.9 g/dL (3.5-5.0); Alkaline Phosphatase 74 U/L (39-117); Anion Gap 12 (12-20); Aspartate Amino Transferase 22 U/L (5-31); Blood Urea Nitrogen 18 mg/dL (9-16); Calcium 8.3 mg/dL (8.4-10.2); Carbon Dioxide 34 mmol/L (22-29); Chloride 98 mmol/L (96-108); Creatinine Clr Calc Pharmacy 40.3; Estimated Glomerular Filt Rate 43; Magnesium 1.8 mg/dL (1.6-2.6); Potassium 4.5 mmol/L (3.3-5.1); Sodium 139 mmol/L (135-145); Total Protein 6.7 g/dL (6.5-8.0)
[2025-03-09 16:05] LABS: Troponin-I High Sensitivity 11.0 ng/L (<3.5-17.0)
[2025-03-09 17:00] LABS: Resp Syncy Virus RNA Qual PCR NEGATIVE (Negative); SARS COV2 PCR INHOUSE NEGATIVE (Negative)
[2025-03-09 17:21] VITALS: BP 181/73; PULSE 67; RESP 20; TEMP 36.8; O2SAT 98
== END 2025-03-09 17:22 | disposition home or self-care (01) ==
PROVIDERS: Emergency Provider Emergency Medicine; PCP Internal Medicine
DX: M25.511 Pain in right shoulder (principal); M19.011 Primary osteoarthritis, right shoulder; E11.9 Type 2 diabetes mellitus without complications; I10 Essential (primary) hypertension; N28.9 Disorder of kidney and ureter, unspecified; Z79.4 Long term (current) use of insulin; I48.91 Unspecified atrial fibrillation; Z79.01 Long term (current) use of anticoagulants; G47.33 Obstructive sleep apnea (adult) (pediatric); E78.5 Hyperlipidemia, unspecified; I25.10 Atherosclerotic heart disease of native coronary artery without angina pectoris; J45.909 Unspecified asthma, uncomplicated; Z03.818 Encounter for observation for suspected exposure to other biological agents ruled out
CPT/HCPCS: 36415; 73030; 80048; 80076; 82947; 83735; 84484; 84550; 85025; 86140; 87637; 93005; 99283; 99284

== ENCOUNTER → 2025-03-09 14:29 | Outpatient (BNV) | payer OTHER, SELFPAY | PROVIDERS: Emergency Provider Emergency Medicine; PCP Internal Medicine; Visit Provider Internal Medicine Cardiovascular Disease | DX: R94.31 Abnormal electrocardiogram [ECG] [EKG] (principal); R06.02 Shortness of breath | CPT/HCPCS: 93010 ==

== ENCOUNTER → 2025-03-09 14:34 | Outpatient (BNV) | payer OTHER, SELFPAY | PROVIDERS: Emergency Provider Emergency Medicine; PCP Internal Medicine; Visit Provider Radiology Diagnostic Radiology | DX: M19.011 Primary osteoarthritis, right shoulder (principal) | CPT/HCPCS: 73030 ==

== ENCOUNTER 2025-03-11 06:49 | Emergency (ER) | payer OTHER, SELFPAY ==
--- NOTE | 2025-03-11 | ECG_ITS ---
Test Reason : RIGHT ARM PAIN Blood Pressure : */* mmHG Vent. Rate : 73 BPM Atrial Rate : 73 BPM P-R Int : 166 ms QRS Dur : 86 ms QT Int : 408 ms P-R-T Axes : 46 -20 19 degrees QTcB Int : 449 ms Sinus rhythm with Premature atrial complexes Otherwise normal ECG When compared with ECG of 09-Mar-2025 14:53, Premature atrial complexes are now Present Nonspecific T wave abnormality no longer evident in Lateral leads QT has lengthened Referred By: Generic ED Physician Electronically Signed By: TRINY SCHAFFER MD
--- NOTE | ~2025-03-11 | XR_ITS ---
CLINICAL HISTORY: pain ; PT states no fall or accident, pain in right shoulder. 3 view right shoulder Comparison: CR/SR - XR SHOULDER 2 OR MORE VIEWS RIGHT - 03/09/25 15:11 EDT Findings: No fractures or dislocations. Moderate degenerative change involving the glenohumeral and acromioclavicular joints. Remote postsurgical appearance of the distal clavicle. No erosions. No radiopaque foreign body. IMPRESSION: 1. No acute findings. moderate chronic changes. This document has been electronically signed by: Paul Calderon MD on 03/11/2025 08:21:47
[2025-03-11 07:02] VITALS: BP 155/81; PULSE 68; PULSE 77; RESP 20; TEMP 37.1; O2SAT 93; O2SAT 98; BMI 47.1
[2025-03-11 07:09] VITALS: BP 158/73; PULSE 66; RESP 20; O2SAT 99
--- NOTE | 2025-03-11 07:19 | PC.NURSE ---
Addendum entered by Cesilia Gonsalves RN 03/11/25 07:20: Patient is a 74-year-old female with a history of multiple medical problems. She has a history of kidney disease, insulin-requiring diabetes, atrial fibrillation on apixaban, obstructive sleep apnea not on CPAP, hyperlipidemia, hypertension, hypothyroidism, coronary artery disease, heart failure with preserved ejection fraction, mild aortic stenosis, arthritis, asthma, fibromyalgia. The patient has a history of chronic right shoulder pain attributed to a rotator cuff tear. She takes oxycodone at home. Today she is complaining of right arm pain and took all her pain medication including her oxycodone with no effect. The patient is on 2 L nasal cannula of oxygen at home because of COPD. Patient is alert and oriented. Primarily togolese speaking. Patient morbidly obese. Respirations even and non-labored. Patient on chronic o2 therapy. Abdomen large, soft, non-tender with positive bowel sounds. Positive pedal pulses with LE edema noted. Original Note: Medical History Urinary incontinence (HFpEF) heart failure with preserved ejection fraction Anxiety Insomnia CKD (chronic kidney disease) CKD stage 3 due to type 2 diabetes mellitus Leg abrasion Abuse of non-prescription analgesics Type 2 diabetes mellitus with unspecified complications Other and unspecified hyperlipidemia Essential hypertension Atherosclerotic cardiovascular disease Urgency incontinence Osteoporosis Arthritis Asthma Hypertension Fibromyalgia Diabetes mellitus
--- NOTE | 2025-03-11 07:59 | ED_ITS ---
HPI - Extremity Problem General Chief complaint: Extremity Problem Stated complaint: R arm pain / chest pain Time Seen by Provider: 03/11/25 07:05 History of Present Illness HPI Narrative: The patient is a 74-year-old female with a history of multiple medical problems. She has a history of kidney disease, insulin-requiring diabetes, atrial fibrillation on apixaban, obstructive sleep apnea not on CPAP, hyperlipidemia, hypertension, hypothyroidism, coronary artery disease, heart failure with preserved ejection fraction, mild aortic stenosis, arthritis, asthma, fibromyalgia. Patient has a history of right shoulder pain. History of rotator cuff tear. Was in the hospital 2 days ago for the same. Patient denies any chest pain or shortness of breath no diaphoresis that is new. Baseline is on 2 L of oxygen at home. She has a long history of COPD. No fever no chills no coughing. Pain worsened with movement of the right shoulder patient's baseline sits in the wheelchair Related Data Home Medications ?Medication ?Instructions ?Recorded ?Confirmed atorvastatin 80 mg tablet 80 mg PO BEDTIME 04/07/21 duloxetine 20 mg capsule,delayed 20 mg PO DAILY 03/04/25 release omeprazole 40 mg capsule,delayed 40 mg PO DAILY@0630 0 03/18/24 03/04/25 release oxycodone-acetaminophen 5 mg-325 1 tab PO Q6H PRN Katelyn re Pain 06/11/24 03/04/25 mg tablet (Scale Score 7-10) ketotifen fumarate 0.025 % (0.035 1 drp ophthalmic (ey e) Q12H PRN 10/06/24 03/04/25 %) eye drops (Eye Itch Relief) Eye Irritation trazodone 150 mg tablet 150 mg PO BEDTIME 10/06/24 0 03/04/25 calcium carbonate (Oyster Shell 500 mg PO BID 12/06/24 03/04/25 Calcium 500) hydroxyzine HCl 25 mg tablet 25 mg PO Q8H PRN anxiety 12/06/24 03/04/25 insulin degludec 200 unit/mL (3 64 unit subcut DAILY 0 12/06/24 03/04/25 mL) subcutaneous pen (Tresiba FlexTouch U-200 insulin) melatonin 3 mg tablet 3 mg PO BEDTIME 12/06/24 albuterol sulfate 2.5 mg/3 mL 2.5 mg inhalation Q6H ID N 03/04/25 03/04/25 (0.083 %) solution for nebulization Shortness Of Breat h Or Wheezing albuterol sulfate 90 mcg/actuation 2 puff inhalation Q ID PRN 03/04/25 03/04/25 aerosol inhaler Shortness Of Breath Or Wheez ing amoxicillin 875 mg-potassium 1 tab PO Q12H 03/04/25 clavulanate 125 mg tablet bacitracin 500 unit/gram topical 1 appl topical BID 03/04/25 ointment dulaglutide 3 mg/0.5 mL 3 mg subcut FR 03/04/2502/07 [facility] gabapentin 300 mg capsule 300 mg PO BID 03/04/2503/04 Previous Rx's ?Medication ?Instructions ?Recorded apixaban 5 mg tablet (Eliquis) 5 mg PO BID #60 tabs Held on 03/07/25. Instructions: Resume on 03/09/25. amlodipine 5 mg tablet 5 mg PO DAILY #30 tabs 06/20 torsemide 20 mg tablet 20 mg PO DAILY #30 tabs 06/09 10/02 levothyroxine 100 mcg tablet 100 mcg PO DAILY@0600 #90 tabs 03/07/25 (Synthroid) oxycodone-acetaminophen 5 mg-325 1 tab PO Q6H PRN pain 3 days #9 03/11/25 mg tablet (Percocet) tabs Allergies Allergy/AdvReac Type Severity Reaction Status Date / Time codeine (CODEINE) Allergy Intermediate HALLUCINATI Verified 03/11/25 07:04 ONS Review of Systems 2 Review of Systems: + right shoulder pain No new shortness of breath Yes all other systems are reviewed and are negative PMFSH Past Medical History Attestation statement: The following information was validated with the patient. Medical History Urinary incontinence (HFpEF) heart failure with preserved ejection fraction Anxiety Insomnia CKD (chronic kidney disease) CKD stage 3 due to type 2 diabetes mellitus Leg abrasion Abuse of non-prescription analgesics Type 2 diabetes mellitus with unspecified complications Other and unspecified hyperlipidemia Essential hypertension Atherosclerotic cardiovascular disease Urgency incontinence Osteoporosis Arthritis Asthma Hypertension Fibromyalgia Diabetes mellitus Surgical History H/O tubal ligation History of hernia repair Social History Social History Household Members: Children Household Members Other:: son Housing: Apartment Are you a primary career transition specialist to a significant other at home: No Do you presently have visiting nurse or other home services: No Unable to assess alcohol history related to: Unknown Alcohol intake: never 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 Oriented X3. No acute distress. Eyes: Pupils equal, round and reactive to light. ENT: Pharynx normal. Neck: Normal inspection. Neck supple. No lymph nodes noted. No crepitus CVS: Normal heart rate and rhythm. Pulses normal. Normal S1 and S2 Respiratory: No respiratory distress. Breath sounds normal. No Wheezing. No rales Abdomen: Soft and nontender. No rigidity. No distention. good BS x4 Skin: Skin warm and dry. Normal skin color. Normal skin turgor. Extremities: Pain on movement of the right shoulder. There is no gross deformity palpable. There is no clavicular tenderness. There is good range of motion at the elbow at the wrist at the hand there is no gross loss in sensation. Sensation over the axillary median radial and ulnar nerve intact capillary refill less than 2 seconds. Neuro: Oriented X 3. No motor deficit. No sensory deficit. Moving all extermities. No slurred speech Vital Signs: Vital Signs: Last Vital Signs Temp 98.7 F 03/11/25 07:02 Pulse 66 03/11/25 07:09 Resp 20 03/11/25 07:09 BP 158/73 H 03/11/25 07:09 Pulse Ox 99 03/11/25 07:09 O2 Del Method Nasal Cannula 03/11/25 07:09 O2 Flow Rate 2 03/11/25 07:09 Oxygen Flow Rate 2 03/11/25 07:02 BMI result Body Mass Index 47.1 Medications Administered Discontinued Medications Generic Name Dose Route Start Last Admin Trade Name Elkin PRN Reason Stop Dose Admin Hydrocodone Bitart/Acetaminophen 1 tab 03/11/25 07:59 03/11/25 08:08 Hydrocodone Bit/Acetam 5/325 Tablet PO 03/11/25 08:00 1 tab ONCE ONE Administration Medical Decision Making Medical Decision Making [facility] Narrative: Patient's pain likely related to chronic rotator cuff tear. Will give additional pain medication as patient ran out of home medication will have patient follow-up on an outpatient basis has an appointment with Rheumatology and Orthopedics on an outpatient basis. Currently in stable condition. Patient's blood count and electrolytes are baseline. No distress. Has pain that is chronic. My interpretation patient's x-ray showed no acute fracture. I reviewed radiology's reading. Will discharge patient home close follow-up on an outpatient basis Differential Diagnosis Differential Diagnoses: The differential diagnosis associated with the presentation includes Arthritis, fracture Lab Data [facility] Lab Attestation statement: I reviewed the patient's lab results. 03/11/25 08:31 03/11/25 08:31 Labs: Lab Results 03/11/25 Range/Units 08:31 WBC 8.5 (4.8-10.8) X10*3/uL RBC 3.71 L (4.20-5.50) X10*6/uL Hgb 8.4 L (12.0-16.0) g/dl Hct 28.3 L (37.0-47.0) % MCV 76.3 L (80.0-98.0) fL MCH 22.6 L (27.0-33.0) pg MCHC 29.7 L (31.0-35.0) g/dl RDW 20.6 H (11.0-16.0) % Plt Count 348 (160-400) X10*3/uL MPV 9.2 L (9.4-12.3) fL Immature Gran % (Auto) 1.2 H (0.0-0.4) % Neut % (Auto) 74.2 H (45-73) % Lymph % (Auto) 10.9 L (20-40) % [place] % (Auto) 11.3 H (2-11) % Eos % (Auto) 1.8 (0-4) % Baso % (Auto) 0.6 (0-2) % Lymph # (Auto) 0.9 L (1.2-4.9) X10*3/uL [place] # (Auto) 1.0 (0.1-1.2) X10*3/uL Eos # (Auto) 0.2 (0.0-0.4) X10*3/uL Baso # (Auto) 0.1 (0.0-0.2) X10*3/uL Abs Immat Gran (auto) 0.10 H (0.00-0.03) X10*3/uL Absolute Neuts (auto) 6.3 (2.0-8.3) x10*3/uL Absolute Nucleated RBC 0.000 (0.0-0.012) X10*3/uL Nucleated RBC % (auto) 0.0 (0.0-0.2) /100WBC Sodium 136 (135-145) mmol/L Potassium 4.4 (3.3-5.1) mmol/L Chloride 98 (96-108) mmol/L Carbon Dioxide 32 H (22-29) mmol/L Anion Gap 10 L (12-20) BUN 17 H (9-16) mg/dL Creatinine 1.16 (0.5-1.4) mg/dL Estim Creat Clear Calc 48.9 Estimated GFR 46 Random Glucose 332 H (60-115) mg/dL Calcium 8.3 L (8.4-10.2) mg/dL Independent Interpretation I performed an independent interpretation of an: Plain X-Ray (X-ray of the shoulder showed no acute fracture) Radiology Impression Discussion of test interpretation with radiology: I have reviewed the radiologist's reading. External Record Review External record reviewed: Inpatient record Discharge Plan Discharge Clinical Impression: Arthritis Patient Disposition: Home, Self-Care Instructions: Osteoarthritis (DC) Prescriptions: New oxycodone-acetaminophen [Percocet] 5-325 mg tablet 1 tab PO Q6H PRN (Reason: pain) 3 Days Qty: 9 0RF Rx Instructions: Partial Fill upon patient request. No Action atorvastatin 80 mg tablet 80 mg PO BEDTIME Eliquis 5 mg Tablet 5 mg PO BID Qty: 60 0RF omeprazole 40 mg capsule,delayed release(DR/EC) 40 mg PO DAILY@0630 duloxetine 20 mg capsule,delayed release(DR/EC) 20 mg PO DAILY melatonin 3 mg tablet 3 mg PO BEDTIME calcium carbonate [Oyster Shell Calcium 500] 500 mg calcium (1,250 mg) tablet 500 mg PO BID Patient Comments: Applies to legs hydroxyzine HCl 25 mg tablet 25 mg PO Q8H PRN (Reason: anxiety) insulin degludec [Tresiba FlexTouch U-200] 200 unit/mL (3 mL) insulin pen 64 unit subcut DAILY oxycodone-acetaminophen 5-325 mg tablet 1 tab PO Q6H PRN (Reason: Severe Pain (Scale Score 7-10)) torsemide 20 mg tablet 20 mg PO DAILY Qty: 30 0RF amlodipine 5 mg Tablet 5 mg PO DAILY Qty: 30 0RF Protocol: Hold for SBP< HOLD for SBP < : 90 ketotifen fumarate [Eye Itch Relief] 0.025 % (0.035 %) drops 1 drp ophthalmic (eye) Q12H PRN (Reason: Eye Irritation) trazodone 150 mg tablet 150 mg PO BEDTIME albuterol sulfate 2.5 mg /3 mL (0.083 %) solution for nebulization 2.5 mg inhalation Q6H PRN (Reason: Shortness Of Breath Or Wheezing) bacitracin 500 unit/gram ointment 1 appl topical BID gabapentin 300 mg capsule 300 mg PO BID albuterol sulfate 90 mcg/actuation HFA aerosol inhaler 2 puff INHALATION QID PRN (Reason: Shortness Of Breath Or Wheezing) amoxicillin-pot clavulanate 875-125 mg tablet 1 tab PO Q12H Trulicity 3 mg/0.5 mL pen injector 3 mg subcut FR levothyroxine [Synthroid] 100 mcg Tablet 100 mcg PO DAILY@0600 Qty: 90 0RF Referrals: Amanda Watkins MD [Primary Care Provider, Internal Medicine] - 3 days Print Language: Honduran
[2025-03-11] MEDS: HYDROcodone Bit/Acetam 5/325 TABLET 1 TAB PO (08:08)
[2025-03-11 08:35] LABS: MANUAL DIFF FLAG NO
[2025-03-11 08:36] LABS: Hematocrit 28.3 % (37.0-47.0); Hemoglobin 8.4 g/dl (12.0-16.0); Imm Gran Abs Auto 0.10 X10*3/uL (0.00-0.03); Imm Gran Pct Auto 1.2 % (0.0-0.4); Lymphocytes Absolute Auto 0.9 X10*3/uL (1.2-4.9); Mean Corpuscular HGB Conc 29.7 g/dl (31.0-35.0); Mean Corpuscular Hemoglobin 22.6 pg (27.0-33.0); Mean Corpuscular Volume 76.3 fL (80.0-98.0); NRBC Abs Auto 0.000 X10*3/uL (0.0-0.012); NRBC Pct Auto 0.0 /100WBC (0.0-0.2); Platelet Count 348 X10*3/uL (160-400); Red Blood Count 3.71 X10*6/uL (4.20-5.50); White Blood Count 8.5 X10*3/uL (4.8-10.8)
[2025-03-11 08:51] LABS: Anion Gap 10 (12-20); Blood Urea Nitrogen 17 mg/dL (9-16); Calcium 8.3 mg/dL (8.4-10.2); Carbon Dioxide 32 mmol/L (22-29); Chloride 98 mmol/L (96-108); Creatinine Clr Calc Pharmacy 48.9; Estimated Glomerular Filt Rate 46; Potassium 4.4 mmol/L (3.3-5.1); Sodium 136 mmol/L (135-145)
[2025-03-11 09:24] VITALS: BP 121/68; PULSE 70; RESP 20; O2SAT 96
[2025-03-11 09:31] VITALS: BP 121/68; PULSE 70; RESP 20; TEMP 36.7; O2SAT 96
== END 2025-03-11 09:33 | disposition home or self-care (01) ==
PROVIDERS: Emergency Provider Emergency Medicine Emergency Medical Services; PCP Internal Medicine
DX: M19.90 Unspecified osteoarthritis, unspecified site (principal); I12.9 Hypertensive chronic kidney disease with stage 1 through stage 4 chronic kidney disease, or unspecified chronic kidney disease; E11.22 Type 2 diabetes mellitus with diabetic chronic kidney disease; N18.30 Chronic kidney disease, stage 3 unspecified; Z79.85 Long-term (current) use of injectable non-insulin antidiabetic drugs; I48.91 Unspecified atrial fibrillation; Z79.01 Long term (current) use of anticoagulants; G47.33 Obstructive sleep apnea (adult) (pediatric); E78.5 Hyperlipidemia, unspecified; J45.909 Unspecified asthma, uncomplicated; Z99.81 Dependence on supplemental oxygen
CPT/HCPCS: 36415; 73030; 80048; 85025; 93005; 99283; 99285

== ENCOUNTER → 2025-03-11 07:02 | Outpatient (BNV) | payer OTHER, SELFPAY | PROVIDERS: Emergency Provider Emergency Medicine Emergency Medical Services; PCP Internal Medicine; Visit Provider Internal Medicine Cardiovascular Disease | DX: I49.1 Atrial premature depolarization (principal) | CPT/HCPCS: 93010 ==

== ENCOUNTER → 2025-03-11 07:53 | Outpatient (BNV) | payer OTHER, SELFPAY | PROVIDERS: Emergency Provider Emergency Medicine Emergency Medical Services; PCP Internal Medicine; Visit Provider Radiology Vascular & Interventional Radiology | DX: M25.511 Pain in right shoulder (principal) | CPT/HCPCS: 73030 ==

== ENCOUNTER 2025-03-22 15:15 | Outpatient (AMB) | payer OTHER, SELFPAY ==
[2025-03-22 15:18] VITALS: PULSE 66; O2SAT 90; BMI 45.9
--- NOTE | 2025-03-22 15:18 | HO.NEPHOV_ITS ---
Vital Signs 03/22/25 15:18 Height 5 ft 1 in Weight 243 lb BMI 45.9 Pulse 66 Pulse Source Pulse Oximeter Pulse Oximetry (%) 90 L Oxygen Delivery Method Room Air Intake Visit Reasons: Last seen 03/29/24-Conf w/Daughter Tab Cutting Machine Operator Required: Yes Allergies codeine (CODEINE) Allergy (Intermediate, Verified 03/22/25 15:21) HALLUCINATIONS Medication List - Last Reconciled 03/22/25 by Vladimir Gallegos MD albuterol sulfate 2.5 mg inhalation Q6H PRN albuterol sulfate 90 mcg/actuation 2 puffs inhalation QID PRN amlodipine 5 mg See Protocol PO DAILY amoxicillin-pot clavulanate 875-125 mg 1 tab PO Q12H apixaban (Eliquis) 5 mg PO BID Held on 03/07/25. Instructions: Resume on 03/09/25. atorvastatin 80 mg PO BEDTIME bacitracin 1 appl topical BID calcium carbonate (Oyster Shell Calcium 500) 500 mg PO BID dulaglutide (Trulicity) 3 mg subcut FR duloxetine 20 mg PO DAILY gabapentin 300 mg PO BID hydroxyzine HCl 25 mg PO Q8H PRN insulin degludec (Tresiba FlexTouch U-200 insulin) 64 units subcut DAILY ketotifen fumarate 0.025%(0.035%) (Eye Itch Relief) 1 drp ophthalmic (eye) Q12H PRN levothyroxine (Synthroid) 100 mcg PO DAILY@0600 melatonin 3 mg PO BEDTIME omeprazole 40 mg PO DAILY@0630 oxycodone-acetaminophen 5-325 mg (Percocet) 1 tab PO Q6H PRN 3 days oxycodone-acetaminophen 5-325 mg 1 tab PO Q6H PRN torsemide 20 mg PO DAILY trazodone 150 mg PO BEDTIME HPI Comments Details: Mary Lou is a pleasant 73-year-old man with a history of longstanding diabetes mellitus hypertension and chronic kidney disease. She was accompanied by her daughter today. Tab Cutting Machine Operator service was used. She was recently in the ER for cellulitis of the legs. She is currently on doxycycline. According to her daughter Mary Lou is noncompliant with the dietary restrictions. She is on high salt diet. She is compliant with her medications. 03/22/25 The patient is a 74-year-old female presenting with CKD , diabetes mellitus, anemia, hypertension, and edema. The diabetes mellitus has been characterized by consistently high blood sugar levels, which are not well controlled due to dietary habits, including nocturnal eating of high-carbohydrate foods. The patient has been managing her diabetes independently, with an upcoming appointment with her primary care physician for further evaluation. Severe anemia- underwent EGD . She received a blood transfusion two weeks ago and has been advised to take iron supplements, although she has not been taking them consistently. Hypertension is being managed with medications including amlodipine, and the patient has been experiencing episodes of dyspnea, which may be related to her medication regimen. Edema has been observed in the legs, and the patient has been using a diuretic, torsemide, to manage this condition. [facility] Medical History Urinary incontinence (HFpEF) heart failure with preserved ejection fraction Anxiety Insomnia CKD (chronic kidney disease) CKD stage 3 due to type 2 diabetes mellitus Leg abrasion Abuse of non-prescription analgesics Type 2 diabetes mellitus with unspecified complications Other and unspecified hyperlipidemia Essential hypertension Atherosclerotic cardiovascular disease Urgency incontinence Osteoporosis Arthritis Asthma Hypertension Fibromyalgia Diabetes mellitus Surgical History H/O tubal ligation History of hernia repair Social History Household Members: Children Household Members Other:: son Housing: Apartment Are you a primary care process manager to a significant other at home: No Do you presently have visiting nurse or other home services: No Unable to assess alcohol history related to: Unknown Alcohol intake: never 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 Comfortable. Neck is supple. Mucosa moist. Lungs air entry Heart S1-S2 heard no gallop. Abdomen soft. Extremities 1+ edema. No involuntary movements. No myoclonus. Results Reviewed Nephrology Results: Hgb, (12.0-16.0) 8.4 g/dl L 03/11/25 WBC, (4.8-10.8) 8.5 X10*3/uL 03/11/25 Plt Count, (160-400) 348 X10*3/uL 03/11/25 Sodium, (135-145) 136 mmol/L 03/11/25 Potassium, (3.3-5.1) 4.4 mmol/L 03/11/25 Chloride, (96-108) 98 mmol/L 03/11/25 Carbon Dioxide, (22-29) 32 mmol/L H 03/11/25 BUN, (9-16) 17 mg/dL H 03/11/25 Creatinine, (0.5-1.4) 1.16 mg/dL 03/11/25 Calcium, (8.4-10.2) 8.3 mg/dL L 03/11/25 Phosphorus, (2.7-4.5) 3.1 mg/dL 03/03/25 Urine Protein, (Neg-Trace) Negative mg/dL 03/04/25 Assessment & Plan Assessment & Plan (1) Essential hypertension: Code(s): I10 - Essential (primary) hypertension Category: Medical (2) CKD stage 3 due to type 2 diabetes mellitus: Code(s): E11.22 - Type 2 diabetes mellitus with diabetic chronic kidney disease; N18.30 - Chronic kidney disease, stage 3 unspecified Category: Medical (3) CHF (congestive heart failure): Code(s): I50.9 - Heart failure, unspecified Category: Medical Plan Mary Lou chronic kidney disease stage IIIB in the setting of longstanding diabetes mellitus hypertension. Renal functino is at baseline Maintain hemoglobin A1c less than 7%. Maintain blood pressure less than 130/80 mm Hg. Continue to avoid nephrotoxic agents. She will benefit from JANENE inhibition and use of SGLT2 inhibitors. Severe Anemia and Iron Deficiency Start Iron supplement Would benefit from IV Iron Orders: Orders Basic Metabolic Panel 6 Months I50.9 - Heart failure, unspecified Medications: New ferrous fumarate 324 mg PO DAILY 90 tabs 0RF Coding Level of Care Code Est Pt Level 4 (16827) Diagnoses Essential hypertension I10 CKD stage 3 due to type 2 diabetes mellitus E11.22; N18.30 CHF (congestive heart failure) I50.9
--- OUTSIDE RECORDS SUMMARY | 2025-03-22 15:42 | XMS_ITS | Encounter Summary ---
Author Organization [employer] Address [address] [place] [address] Care Team Providers Care Processing Tech Name Role Phone Amanda Watkins MD Primary Care Provide r Hiro Ram BALANCE WHEEL SCREW HOLE DRILLER Unavailable Unavailable Raad Arias PharmD Unavailable [phone] Reason for Visit * Reason Comments Med Refill Encounter Details Date Type Department Care Team (Late st Contact Info) Description 02/11/2024 Refill [facility] [address] [place] [id number] Amanda Watkins MD [address] [place], [place] [id number] Type 2 diabetes mellitus with other specified complication, unspecified whether manager terminal insulin use ([facility]) Social History Tobacco Use Types [...] Care Team (Late st Contact Info) Description 03/29/2025 2:00 PM EDT Office Visit [facility] [address] [place] [id number] Amanda Watkins MD [address] [place] [phone] 04/13/2025 11:00 AM EDT Telemedicine [address] [phone] Kayley Alanis RN 04/16/2025 3:30 PM EDT Medication Management [facility] [address] [place] [phone] Raad Arias, TheaD [address] [place] [phone] documented as of this encounter Visit Diagnoses Diagnosis Type 2 diabetes mellitus with other specified complication, unspecified whether intermediate insulin use ([facility]) documented in this encounter Additional Health Concerns Assessment Noted Time PHQ-9 Depression Total Score: 10 024 3:23 PM EDT documented as of this encounter Care Teams Processing Tech Relationship Specialty Start Date End Date Amanda Watkins MD [address] [place] [phone] PCP - General Family Medicine 04/07/19 Hiro Ram FNP [address] [place] [phone] Nurse Practitioner Family Medicine 07/06/23 Raad Arias, TheaD [address] [place] [phone] Pharmacist Internal Medicine 10/19/24 [facility] 07/03/22 08/16/24 Ja [facility] 08/10/24 03/12/25 [facility] 03/08/25 documented as of this encounter
--- OUTSIDE RECORDS SUMMARY | 2025-03-22 15:42 | XMS_ITS | Patient Health Record ---
Author Organization [facility] Address [address] [place] [address] Care Team Providers Care Fuel Conversion Technician Name Role Phone Amanda Adame M.D. Primary Care Provider Geoff Leon Jr, João Marie Results Component Value Reference Range Notes Pathology Reviewed date:03/21/2025 08:46:31 AM Interpretation: Performing Lab:[facility], [address] [place] [phone] Notes/Report: Reason For Referral No Information Encounters Encounter Location Date Provider Diagnosis [facility] Inpatient [address] [place] [id number] 03/06/2025 João Leon Jr [facility] [address] [place] [phone] 03/21/2025 João Leon Jr Plan Of Treatment Next Appt Details Provider Name:João yañez Jr, 07/26/2025 02:15:00 PM, [address] [place] [address], [address], [place], [phone], Insurance Providers Payer Name Payer Address Payer Phone Subscriber Number Group Number Insured Name Patient Relationship to Insured Coverage Start Date Coverage End Date [employer] [facility] [address] Attn Claims CARLOS Varma [id number] JP MORGAN Self - patient is the insured
--- OUTSIDE RECORDS SUMMARY | 2025-03-22 15:42 | XMS_ITS | Clinical Summary ---
Author Organization [facility] Address [address] [place] [phone] Phone Care Team Providers Care Bulk Truck Driver Name Role Phone Amanda Watkins [...] 12/06/2023, 07/16/2016, 02/17/2013, Additional history exists Insurance [facility] MCR ([id number]) CARLOS LOPES [id number] [place] [id number] [facility] ([id number]) CARLOS LOPES [id number] Care Teams Bulk Truck Driver Relationship Specialty Start Date End Date Amanda Watkins MD [address] [place] [phone] PCP - General Internal Medicine 03/01/23
== END 2025-03-22 15:33 | disposition home or self-care (01) ==
LOC: HO.HKA 15:15
PROVIDERS: PCP Internal Medicine; Visit Provider Internal Medicine Hypertension Specialist
DX: I10 Essential (primary) hypertension (principal); E11.22 Type 2 diabetes mellitus with diabetic chronic kidney disease; N18.30 Chronic kidney disease, stage 3 unspecified; I50.9 Heart failure, unspecified
CPT/HCPCS: 99214

== ENCOUNTER → 2025-03-22 15:15 | Outpatient (BNVA) | payer OTHER, SELFPAY | PROVIDERS: PCP Internal Medicine; Visit Provider Internal Medicine Hypertension Specialist | DX: I10 Essential (primary) hypertension (principal); E11.22 Type 2 diabetes mellitus with diabetic chronic kidney disease; N18.30 Chronic kidney disease, stage 3 unspecified; I50.9 Heart failure, unspecified | CPT/HCPCS: 99212 ==

== ENCOUNTER 2025-04-17 14:07 | Inpatient (IN) | payer OTHER, SELFPAY ==
--- OUTSIDE RECORDS SUMMARY | 2025-03-06 06:50 | XMS_ITS ---
Author Organization [facility] Address [address] [place] [address] Care Team Providers Care Procurement Professional Name Role Phone Amanda Adame M.D. Primary Care Provider Geoff Leon Jr, João Maire [phone] REASON FOR VISIT anemia Encounters Encounter Location Date Provider [place] [facility] [place] [address] [place], [place] [id number] 03/06/2025 João Leon Jr Plan Of Treatment Next Appt Details Provider Name:João yañez Jr, 07/26/2025 02:15:00 PM, [address], [address], [place], [address], Progress Notes * JP MORGANDOB:[birth year] (74 yo F)Acc No.[id number]:03/06/2025 EGD and COL/MAC Patient: JP HINKLE Provider: Shannan Leon MD :1950 A ge:74 Y S ex:Female Date:03/06/2025 Address:[address] [place] [address] [address] , [place], [place] Pcp:Amanda Adame M.D. Subjective: * Chief Complaints: [...] 03/06/2025 Generated for Selene garcia/Thad/Miriamitting on: 0 04/17/2025 05:17 PM EDT
[2025-04-17] VITALS (7 sets, daily range): BP systolic 122–168; BP diastolic 53–84; PULSE 62–90; RESP 14–99; TEMP 36.6–37.2; O2SAT 95–100; BMI 43.2
--- NOTE | ~2025-04-17 | CT_ITS ---
CLINICAL HISTORY: severe shoulder pain CT right shoulder without contrast Comparison: CR - XR SHOULDER RT MIN 2V - 03/11/25 08:[address]/NC/SR - CT SHOULDER RT WO IV CON - 01/05/25 10:37 EDT Findings: Large amount of gas and fluid within the subdeltoid space with surrounding muscular edema. Previously there was only a small amount of fluid with no gas. There is likely at least a small glenohumeral joint effusion. Likely present on the prior. There is lytic change at the acromioclavicular joint. This is new. There is also an incidental os acromiale noted. Severe glenohumeral degenerative change. No acute fracture or dislocation. Right lung clear. No foreign body. Impression: 1. Large amount of gas and fluid within the subdeltoid space suggesting infection with a gas-forming organism. 2. Lytic change at the acromioclavicular joint suggesting a septic joint. This document has been electronically signed by: Michael Hernadez MD on 04/17/2025 21:23:50
--- NOTE | 2025-04-17 14:41 | ED.GENADULT ---
HPI - General Adult General Chief complaint: General Medical Stated complaint: High blood sugar, rt shoulder pain Time Seen by Provider: 04/17/25 14:13 Source: patient, EMS and old records reviewed Mode of arrival: EMS Limitations: no limitations History of Present Illness ED Provider: RM EDWARDS narrative: 74 yo female with PMH of anemia, hypothyroidism, CHF, depression, CAD, DM, HTN chronic shoulder pain but notes the past month her R shoulder is very painful and despite oxycodone/gabapentin she has pain and cannot sleep. No numbness or weakness she tells me she has had join aspiration in the past and injections. She is very vague. She denies fevers, rash, trauma, chest pain/dyspnea. She states her daughter and son care for her. She had two visits in March for the same - and no acute fracture on xr. She has appointment with ortho on Wednesday. MD complaint: shoulder pain Onset (ago): month(s) (2+) Location: right and upper extremity Radiation: non-radiation Severity: severe Quality: aching and constant Pain Consistency: constant Relieving factors: none Exacerbating factors: movement Associated symptoms: denies other symptoms Treatments prior to arrival: other Related Data Home Medications ?Medication ?Instructions ?Recorded ?Confirmed atorvastatin 80 mg tablet 80 mg PO BEDTIME 04/07/21 03/22/25 duloxetine 20 mg capsule,delayed 20 mg PO DAILY 03/18/24 03/22/25 release omeprazole 40 mg capsule,delayed 40 mg PO DAILY@0630 03/18/24 03/22/25 release oxycodone-acetaminophen 5 mg-325 1 tab PO Q6H PRN Severe Pain 06/11/24 03/22/25 mg tablet (Scale Score 7-10) ketotifen fumarate 0.025 % (0.035 1 drp ophthalmic (eye) Q12H PRN 10/06/24 03/22/25 %) eye drops (Eye Itch Relief) Eye Irritation trazodone 150 mg tablet 150 mg PO BEDTIME 10/06/24 03/22/25 calcium carbonate (Oyster Shell 500 mg PO BID 12/06/24 03/22/25 Calcium 500) hydroxyzine HCl 25 mg tablet 25 mg PO Q8H PRN anxiety 12/06/24 03/22/25 insulin degludec 200 unit/mL (3 64 unit subcut DAILY 12/06/24 03/22/25 mL) subcutaneous pen (Tresiba FlexTouch U-200 insulin) melatonin 3 mg tablet 3 mg PO BEDTIME 12/06/24 03/22/25 albuterol sulfate 2.5 mg/3 mL 2.5 mg inhalation Q6H PRN 03/04/25 03/22/25 (0.083 %) solution for nebulization Shortness Of Breath Or Wheezing albuterol sulfate 90 mcg/actuation 2 puff inhalation QID PRN 03/04/25 03/22/25 aerosol inhaler Shortness Of Breath Or Wheezing amoxicillin 875 mg-potassium 1 tab PO Q12H 03/04/25 03/22/25 clavulanate 125 mg tablet bacitracin 500 unit/gram topical 1 appl topical BID 03/04/25 03/22/25 ointment dulaglutide 3 mg/0.5 mL 3 mg subcut FR 03/04/25 03/22/25 subcutaneous pen injector (Trulicity) gabapentin 300 mg capsule 300 mg PO BID 03/04/25 03/22/25 Previous Rx's ?Medication ?Instructions ?Recorded apixaban 5 mg tablet (Eliquis) 5 mg PO BID #60 tabs 11/03/23 Held on 03/07/25. Instructions: Resume on 03/09/25. amlodipine 5 mg tablet 5 mg PO DAILY #30 tabs 06/20/24 torsemide 20 mg tablet 20 mg PO DAILY #30 tabs 06/20/24 levothyroxine 100 mcg tablet 100 mcg PO DAILY@0600 #90 tabs 03/07/25 (Synthroid) oxycodone-acetaminophen 5 mg-325 1 tab PO Q6H PRN pain 3 days #9 03/11/25 mg tablet (Percocet) tabs ferrous fumarate 324 mg (106 mg 324 mg PO DAILY #90 tabs 03/22/25 iron) tablet Allergies Allergy/AdvReac Type Severity Reaction Status Date / Time codeine (CODEINE) Allergy Intermediate HALLUCINATI Verified 04/17/25 14:25 ONS Review of Systems Review of Systems: Constitutional : No Fever, No Chills ENT/Mouth : No Ear Pain, No Hoarseness, No sore throat Eyes: No Eye Pain, No Swelling, No Redness, No Foreign Body Cardiovascular : No Chest Pain, No SOB Respiratory : No Cough, No Dyspnea Gastrointestinal : No Nausea, No Vomiting, No Diarrhea, No abdominal Pain Genitourinary : No Dysuria, No Hematuria Musculoskeletal : positive joint pain, No Myalgias, pos Joint Swelling Skin : No Skin lacerations, No rash Neuro : No Weakness, No Numbness, No Loss of Consciousness, No Dizziness, No Headache All other systems reviewed and are negative [facility] Past Medical History Attestation statement: The following information was validated with the patient. Source: old records reviewed Medical History Urinary incontinence (HFpEF) heart failure with preserved ejection fraction Anxiety Insomnia CKD (chronic kidney disease) CKD stage 3 due to type 2 diabetes mellitus Leg abrasion Abuse of non-prescription analgesics Type 2 diabetes mellitus with unspecified complications Other and unspecified hyperlipidemia Essential hypertension Atherosclerotic cardiovascular disease Urgency incontinence Osteoporosis Arthritis Asthma Hypertension Fibromyalgia Diabetes mellitus Surgical History H/O tubal ligation History of hernia repair Social History Social History Household Members: Children Household Members Other:: son Housing: Apartment Are you a primary managed care liaison to a significant other at home: No Do you presently have visiting nurse or other home services: No Unable to assess alcohol history related to: Unknown Alcohol intake: never 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 Patient Tobacco Use Status: Never used Tobacco Smoked in Last 30 Days: No e-Cigarette/Vaping Use: Never Used Use of substances other than those prescribed or required for medical reasons: No Advance Directives: Yes Advance Directives on File: Yes Advance Directives Date on File: 04/07/24 Do you have a plan to hurt others: No Plan Nutrition Risks: No Nutritional Risk service: No Sexual orientation: Straight/Heterosexual Physical Exam ED Vital Signs: Vital Signs - 24 hr 04/17/25 14:23 04/17/25 14:36 04/17/25 16:35 Temperature 98.3 F 98.9 F 98.6 F Pulse Rate 68 67 66 Respiratory Rate 24 H 17 15 Blood Pressure 140/54 H Pulse Oximetry 95 99 99 Oxygen Delivery Method Room Air Room Air Nasal Cannula Oxygen Flow Rate 2 04/17/25 17:00 04/17/25 18:38 04/17/25 20:00 Temperature 97.9 F 97.9 F Pulse Rate 63 62 66 Respiratory Rate 14 99 H 18 Blood Pressure 132/53 L 122/60 140/60 H Pulse Oximetry 100 100 Oxygen Delivery Method Nasal Cannula Room Air Room Air Oxygen Flow Rate 2 BMI result Body Mass Index 43.2 Appearance: Alert. Oriented X3. No acute distress. Eyes: Pupils equal, round and reactive to light. ENT: Pharynx normal. Neck: Normal inspection. Neck supple. CVS: Normal heart rate and rhythm. Pulses normal. Respiratory: No respiratory distress. Breath sounds normal. Abdomen: Soft and nontender. Obese Skin: Skin warm and dry. Normal skin color. no rash on RUE shoulder - distal NV intact will not range the joint Extremities: No lower extremity edema. R shoulder ttp along R joint with no rash, no warmth but will not range the joint and has some swelling noted. Touching joint causes pain. Neuro: Oriented X 3. No motor deficit. No sensory deficit. Course Course Course Narrative: signed out to Dr. Alvarez pending work up Medications Administered Generic Name Dose Route Start Last Admin Trade Name Freq PRN Reason Stop Dose Admin Enoxaparin Sodium 40 mg 04/17/25 23:00 04/18/25 00:40 Enoxaparin Sodium 40 Mg/0.4 Ml Syringe SUBCUT Not Given On Hold: 04/17/25 23:30 Q24H JULIANNE Sodium Chloride 3 ml 04/18/25 00:00 04/18/25 01:05 0.9 % Sodium Chloride Flush 3 Ml Syringe IVFLUSH Not Given QSHIFT JULIANNE Discontinued Medications Generic Name Dose Route Start Last Admin Trade Name Freq PRN Reason Stop Dose Admin Ceftriaxone Sodium 1 gm 04/17/25 21:45 04/17/25 23:22 Ceftriaxone Sodium 1 Gm Vial IVPUSH 04/17/25 21:46 1 gm ONCE ONE Administration Hydromorphone HCl 2 mg 04/17/25 15:18 04/17/25 15:28 Hydromorphone Hcl 2 Mg/Ml Vial IM 04/17/25 15:19 2 mg ONCE ONE Administration Protocol Vancomycin HCl 1,500 mg/ 500 mls @ 333.333 mls/hr 04/17/25 21:45 04/17/25 23:21 Sodium Chloride IV 04/17/25 23:14 333.33 mls/hr ONCE ONE Administration Procedures Procedure Narrative Procedure Narrative: 11:05 PM 04/17/2025 (Dr. Ger Bishop): At around 22:30 I was asked by the primary physician covering the patient in the emergency department to assist with musculoskeletal/soft tissue ultrasound to help guidance of subdeltoid space fluid collection aspiration. See procedure note below other than performing the ultrasound I was not involved in this patient's care: EMERGENCY ULTRASOUND INTERPRETATION- Limited Musculoskeletal [This study was ordered, performed, and interpreted by myself. The study reveals: Impression: Subdeltoid complex fluid collection with gas artifact suggestive of gas forming infectious process abscess or phlegmon [Indication: CT finding of subdeltoid fluid collection Muscle: Right subdeltoid complex collection with gas artifact Other: Performed by: Ger Bishop MD Images were stored ] Ultrasound-guided IV 20 gauge 2-1/2 inch IV placed in left upper extremity, adequate blood return, flushes well secured with Tegaderm. Performed by Tori Jennings PA-C Medical Decision Making Medical Decision Making MDM Narrative: 74 yo female with PMH of anemia, hypothyroidism, CHF, depression, CAD, DM, HTN chronic shoulder pain now here with persistent shoulder pain she is NV intact, given the duration and no fevers I do not suspect septic joint I am going to obtain labs, EKG, and CT scan of area given 3rd visit for same in month. IM pain control ordered. We finally get the x-ray results back CT showed air in the shoulder suggestive of septic joint. Lactate was ordered culture ordered. Patient's sed rate and CRP are both elevated. Case consulted by Orthopedics. Agree with antibiotic will consult on the case once patient to be admitted on the medical service. The case was consulted by the hospitalist team. Patient to be admitted. Question surgery in a.m.. Once patient to be NPO after midnight. After further discussion with orthopedist. We attempted to tap the joint. Consent was obtained from patient using the freelance art director. Refrigerating Engineer Head Brandin was involved. We discussed the risks including bleeding and including infection. We did enter the joint and obtain about 5 cc of purulent material. This was sent for cell count and culture. Antibiotics being home. Lactate is sent. Daughter aware. Patient to be admitted to the orthopedic service. Differential Diagnosis Differential Diagnoses: The differential diagnosis associated with the presentation includes effusion, occult fracture, rotator cuff injury, septic arthritis Admission/Observation Consideration of admission/observation: Escalation of care including admission/observation considered Consult Healthcare Provider Management of the patient was discussed with: Hospitalist and Corn Cutter (Orthopedic surgery) Lab Data MDM Lab Attestation statement: I reviewed the patient's lab results. 04/17/25 15:25 04/17/25 15:25 Labs: Lab Results 04/17/25 04/17/25 04/17/25 Range/Units 14:27 15:25 22:07 WBC 5.5 (4.8-10.8) X10*3/uL RBC 3.58 L (4.20-5.50) X10*6/uL Hgb 8.6 L (12.0-16.0) g/dl Hct 28.2 L (37.0-47.0) % MCV 78.8 L (80.0-98.0) fL MCH 24.0 L (27.0-33.0) pg MCHC 30.5 L (31.0-35.0) g/dl RDW 20.6 H (11.0-16.0) % Plt Count 270 (160-400) X10*3/uL MPV 9.7 (9.4-12.3) fL Immature Gran % (Auto) 0.2 (0.0-0.4) % Neut % (Auto) 67.1 (45-73) % Lymph % (Auto) 19.0 L (20-40) % [place] % (Auto) 9.9 (2-11) % Eos % (Auto) 3.1 (0-4) % Baso % (Auto) 0.7 (0-2) % Lymph # (Auto) 1.0 L (1.2-4.9) X10*3/uL [place] # (Auto) 0.5 (0.1-1.2) X10*3/uL Eos # (Auto) 0.2 (0.0-0.4) X10*3/uL Baso # (Auto) 0.0 (0.0-0.2) X10*3/uL Abs Immat Gran (auto) 0.01 (0.00-0.03) X10*3/uL Absolute Neuts (auto) 3.7 (2.0-8.3) x10*3/uL Absolute Nucleated RBC 0.000 (0.0-0.012) X10*3/uL Nucleated RBC % (auto) 0.0 (0.0-0.2) /100WBC ESR 96 H (0-20) MM/HR Sodium 138 (135-145) mmol/L Potassium 4.6 (3.3-5.1) mmol/L Chloride 95 L (96-108) mmol/L Carbon Dioxide 36 H (22-29) mmol/L Anion Gap 12 (12-20) BUN 30 H (9-16) mg/dL Creatinine 1.30 (0.5-1.4) mg/dL Estim Creat Clear Calc 41.3 Estimated GFR 40 POC Glucose 336 H (60-115) mg/dL Random Glucose 356 H* (60-115) mg/dL Lactic Acid 1.0 (0.5-2.0) mmol/L Calcium 8.8 D (8.4-10.2) mg/dL C-Reactive Protein 8.37 H (< or = 0.50) mg/dL Independent Interpretation I performed an independent interpretation of an: EKG and CT Scan Interpretation: Rate: Rhythm: [place]: Normal P waves. Normal PUSHPA. Normal QRS complex. ST T wave : qTC: prior studies: The study has been interpreted contemporaneously by me. . Radiology Impression Discussion of test interpretation with radiology: I have reviewed the radiologist's reading. Independent Historian Clinical information obtained from an independent historian. History obtained from or confirmed by: EMS External Record Review External record reviewed: Inpatient record and Outpatient record Social Determinants Patient?s care significantly limited by Social Determinants of Health including: Problems related to primary support group Discharge Plan Discharge Clinical Impression: Septic arthritis Chronic shoulder pain Qualifiers: Laterality: right Qualified Code(s): M25.511 - Pain in right shoulder Patient Disposition: Admitted As Inpatient
[2025-04-17 14:46] LABS: Glucose, Whole Blood 336 mg/dL (60-115)
--- NOTE | 2025-04-17 15:11 | ECG_ITS ---
Test Reason : shoulder pain Blood Pressure : */* mmHG Vent. Rate : 64 BPM Atrial Rate : 64 BPM P-R Int : 162 ms QRS Dur : 88 ms QT Int : 406 ms P-R-T Axes : 35 -24 29 degrees QTcB Int : 418 ms Normal sinus rhythm Normal ECG When compared with ECG of 11-Mar-2025 07:02, Premature atrial complexes are no longer Present Referred By: Kassy Barnard Electronically Signed By: TRINY SCHAFFER MD
[2025-04-17 15:30] LABS: MANUAL DIFF FLAG NO
[2025-04-17 15:34] LABS: Hematocrit 28.2 % (37.0-47.0); Hemoglobin 8.6 g/dl (12.0-16.0); Imm Gran Abs Auto 0.01 X10*3/uL (0.00-0.03); Imm Gran Pct Auto 0.2 % (0.0-0.4); Lymphocytes Absolute Auto 1.0 X10*3/uL (1.2-4.9); Mean Corpuscular HGB Conc 30.5 g/dl (31.0-35.0); Mean Corpuscular Hemoglobin 24.0 pg (27.0-33.0); Mean Corpuscular Volume 78.8 fL (80.0-98.0); NRBC Abs Auto 0.000 X10*3/uL (0.0-0.012); NRBC Pct Auto 0.0 /100WBC (0.0-0.2); Platelet Count 270 X10*3/uL (160-400); Red Blood Count 3.58 X10*6/uL (4.20-5.50); White Blood Count 5.5 X10*3/uL (4.8-10.8)
[2025-04-17 16:06] LABS: Anion Gap 12 (12-20); Blood Urea Nitrogen 30 mg/dL (9-16); Calcium 8.8 mg/dL (8.4-10.2); Carbon Dioxide 36 mmol/L (22-29); Chloride 95 mmol/L (96-108); Creatinine Clr Calc Pharmacy 41.3; Estimated Glomerular Filt Rate 40; Potassium 4.6 mmol/L (3.3-5.1); Sodium 138 mmol/L (135-145)
--- NOTE | 2025-04-17 16:38 | PC.NURSE ---
pt placed on 2 O2 per her home base line. O2 was 86%. now 100%. Diaudid very effectivfe. Pt's family asking about joint injections. Educated about orthopedics and primary care.
--- OUTSIDE RECORDS SUMMARY | 2025-04-17 17:16 | XMS_ITS | Encounter Summary ---
Author Organization [employer] Address [address] [facility] 7t [place] [address] Care Team Providers Care Skip Tracer Name Role Phone Amanda Watkins MD Primary Care Provide r Hiro Ram NATIONAL VAN OWNER OPERATOR Unavailable Unavailable Raad Arias PharmD Unavailable [phone] Reason for Visit * Reason Comments Med Refill Encounter Details Date Type Department Care Team (Late st Contact Info) Description 10/10/2024 Refill [facility] CH[facility] MED & PEDS [address] [place] [address] Amanda Watkins MD [address] [place] [address] Social History Tobacco Use Types Packs/Day Years [...] as of this encounter Plan of Treatment Not on file documented as of this encounter Visit Diagnoses Not on filedocumented in this encounter Additional Health Concerns Assessment Noted Time PHQ-9 Depression Total Score: 0 09/01/19 25 1:18 PM EST documented as of this encounter Care Teams Skip Tracer Relationship Specialty Start Date End Date Amanda Watkins MD [address] [place] [phone] PCP - General Family Medicine 04/07/19 Hiro Ram FNP [address] [place] [phone] Nurse Practitioner Family Medicine 07/06/23 Raad Arias, TheaD [address] [place] [phone] Pharmacist Internal Medicine 10/19/24 [facility] 08/10/24 03/12/25 [facility] 03/08/25 documented as of this encounter
--- OUTSIDE RECORDS SUMMARY | 2025-04-17 17:16 | XMS_ITS | Encounter Summary ---
Author Organization [employer] Address [address] [facility] 7[address] [place] [address] Care Team Providers Care Button Cutting Machine Operator Name Role Phone Amanda Watkins MD Primary Care Provide r Hiro Ram DIET THERAPIST Unavailable Unavailable Raad Arias PharmD Unavailable [phone] Reason for Visit * Reason Comments Med Refill Encounter Details Date Type Department Care Team (Late st Contact Info) Description 10/16/2024 Refill [facility] CHC MED & PEDS [address] [place] [address] Amanda Watkins MD [address] [place] [address] Chronic bilateral low back pain with bilateral [...] documented as of this encounter Care Teams Button Cutting Machine Operator Relationship Specialty Start Date End Date Amanda Watkins MD [address] [place] [phone] PCP - General Family Medicine 04/07/19 Hiro Ram FNP [address] [place] [phone] Nurse Practitioner Family Medicine 07/06/23 Raad Arias PharmD [address] [place] [phone] Pharmacist Internal Medicine 10/19/24 [facility] 08/10/24 03/12/25 [facility] 03/08/25 documented as of this encounter
--- OUTSIDE RECORDS SUMMARY | 2025-04-17 17:16 | XMS_ITS | Encounter Summary ---
Author Organization [employer] Address [address] [place] [address] 7t [place] [address] Care Team Providers Care Inward Toll Operator Name Role Phone Amanda Watkins MD Primary Care Provide r Hiro Ram RETORT PRE COOKER Unavailable Unavailable Raad Arias PharmD Unavailable [phone] Encounter Details Date Type Department Care Team ([facility] st Contact Info) Description 09/06/2024 Orders Only [facility] CHC MED & PEDS [address] [place], [place] [phone] MiltonWaldemar Chance MD [address] [place] [address] Social History Tobacco Use Types Packs/Day Years [...] documented as of this encounter Care Teams Inward Toll Operator Relationship Specialty Start Date End Date Amanda Watkins MD [address] [place] [phone] PCP - General Family Medicine 04/07/19 Hiro Ram FNP [address] [place] [phone] Nurse Practitioner Family Medicine 07/06/23 Raad Arias, TheaD [address] [place] [phone] Pharmacist Internal Medicine 10/19/24 [facility] 08/10/24 03/12/25 [facility] 03/08/25 documented as of this encounter
--- OUTSIDE RECORDS SUMMARY | 2025-04-17 17:16 | XMS_ITS | Encounter Summary ---
Author Organization [employer] Address [address] [facility] 7t [place] [address] Care Team Providers Care Kennel Keeper Name Role Phone Amanda Watkins MD Primary Care Provide r Hiro Ram STOREROOM ATTENDANT Unavailable Unavailable Raad Arias PharmD Unavailable [phone] Reason for Visit * Reason Comments Med Refill Encounter Details Date Type Department Care Team (Late st Contact Info) Description 09/27/2024 Refill [facility] MEDICINE [address] [place] [address] Ann Kulkarni DO [address] [place] [address] Social History Tobacco Use Types Packs/Day Years [...] documented as of this encounter Care Teams Kennel Keeper Relationship Specialty Start Date End Date Amanda Watkins MD [address] [place] [phone] PCP - General Family Medicine 04/07/19 Hiro Ram FNP [address] [place] [phone] Nurse Practitioner Family Medicine 07/06/23 Raad Arias, Carlos [address] [place] [phone] Pharmacist Internal Medicine 10/19/24 [facility] 08/10/24 03/12/25 [facility] 03/08/25 documented as of this encounter
--- OUTSIDE RECORDS SUMMARY | 2025-04-17 17:16 | XMS_ITS | Clinical Summary ---
Author Organization [facility] Address [address] [place] [phone] Phone Care Team Providers Care Leather Goods Maker Name Role Phone Amanda Watkins MD Primary [...] 12/06/2023, 07/16/2016, 02/17/2013, Additional history exists Insurance [facility] MCR ([id number]) [place] LOPES [phone] [place] [id number] [facility] ([id number]) [place] LOPES [phone] Care Teams Leather Goods Maker Relationship Specialty Start Date End Date Amanda Watkins MD [address] [place] [phone] PCP - General Internal Medicine 03/01/23
--- OUTSIDE RECORDS SUMMARY | 2025-04-17 17:16 | XMS_ITS | Patient Health Record ---
Author Organization [facility] Address [address] [facility] [address] [address] [place] [phone] Care Team Providers Care Wire Frame Lampshade Maker Name Role Phone Amanda Adame M.D. Primary Care Provider João Woodward Jr Results Component Value Reference Range Notes Pathology Reviewed date:03/21/2025 08:46:31 AM Interpretation: Performing Lab:[facility], [address] [place] [phone] Notes/Report: Reason For Referral No Information Problems Problem Type SNOMED Code ICD Code Onset Dates Problem Status W/U Status Risk Notes Problem Iron deficiency anemia (74188018) Iron deficiency anemia (D50.9) Active confirmed Problem Gastritis (7808701) Gastritis (K29.70) Active confirmed Encounters Encounter Location Date Provider Diagnosis [facility] Inpatient [address] [place] [phone] 03/06/2025 João Leon Jr [facility] [address] [place] [phone] 03/21/2025 João Leon Jr Plan Of Treatment Next Appt Details Provider Name:João yañez Jr, 07/26/2025 02:15:00 PM, [address] [facility] [address], [address], [place], [address], Insurance Providers Payer Name Payer Address Payer Phone Subscriber Number Group Number Insured Name Patient Relationship to Insured Coverage Start Date Coverage End Date [facility] [address] Attn Claims CARLOS Varma [id number] JP MORGAN Self - patient is the insured
--- OUTSIDE RECORDS SUMMARY | 2025-04-17 17:16 | XMS_ITS | Encounter Summary ---
Author Organization [employer] Address [address] [facility] 7t [place] [address] Care Team Providers Care Electrical Development Engineer Name Role Phone Amanda Watkins MD Primary Care Provide r Hiro Ram PRIMER AND POWDER CANNING LEADER Unavailable Unavailable Raad Arias PharmD Unavailable [phone] Reason for Visit * Reason Comments Med Refill Encounter Details Date Type Department Care Team (Late st Contact Info) Description 02/11/2024 Refill [facility] MEDICINE [address] [place] [address] Amanda Watkins MD [address] [place], [place] [phone] Type 2 diabetes mellitus with other specified complication, unspecified whether watermelon inspector insulin use ([facility]) Social History Tobacco Use Types [...] mellitus with other specified complication, unspecified whether [facility] insulin use ([facility]) documented in this encounter Additional Health Concerns Assessment Noted Time PHQ-9 Depression Total Score: 10 024 3:23 PM EDT documented as of this encounter Care Teams Electrical Development Engineer Relationship Specialty Start Date End Date Amanda Watkins MD [address] [place] [phone] PCP - General Family Medicine 04/07/19 Hiro Ram FNP [address] [place] [phone] Nurse Practitioner Family Medicine 07/06/23 Raad Arias PharmD [address] [place] [phone] Pharmacist Internal Medicine 10/19/24 [facility] 07/03/22 08/16/24 [facility] 08/10/24 03/12/25 [facility] 03/08/25 documented as of this encounter
--- OUTSIDE RECORDS SUMMARY | 2025-04-17 17:17 | XMS_ITS | Encounter Summary ---
Author Organization [employer] Address [address] [place] [address] Care Team Providers Care Hassock Maker Name Role Phone Amanda Watkins MD Primary Care Provide r Hiro Ram HOME DEMONSTRATOR Unavailable Unavailable Raad Arias PharmD Unavailable [phone] Reason for Visit * Reason Onset Date Comments Referral 03/20/2025 Encounter Details Date Type Department Care Team ([facility] st Contact Info) Description 03/20/2025 Telephone [facility] [address] [place] [address] Amanda Watkins MD [address] [place], [place] [id number] Referral Social History Tobacco Use Types Packs/Day Years Used Date Smoking Tobacco: Never Passive Smoke Exposure: Never Smokeless Tobacco: Never Alcohol Use Standard Drinks/Week Comments Never 0 (1 standard drink = 0.6 oz pur e alcohol) Depression Answer Date Recorded Patient Health Questionnaire-9 Score 14 03/14/2025 Patient Health Questionnaire-9 Score 14 03/14/2025 Last PHQ-9: Questionnaire Data Not on file 0 03/14/2025 Housing Stability Answer Date Recorded What is your housing situation today? I have ramiro simmons 02/15/[address] you li ve. Do you have problems with any of the following? None of the above 02/15/2025 Food Insecurity Answer Date Recorded Within the past 12 months, y ou worried that your food would run out before you got money to buy more: Never True 02/15/2025 Within the past 12 months,th e food you bought just didn't last and you didn't have enough money to get more: Never True 05/2025 Transportation Answer Date Recorded In the past 12 months, has l ack of transportation kept you from medical appts, meetings, work or from getting things needed for daily living? No 02/15/2025 Utilities Answer Date Recorded In the past 12 months, has t he electric, gas, oil or water company threatened to shut off services in your home? No 02/15/2025 Depression Answer Date Recorded Patient Health Questionnaire-2 Score 6 03/14/2025 Internet Access Answer Date Recorded Internet Access Q1 No 02/15/2025 Internet Access Q2 I do not want or need it 02/06 Comments Unknown Sex and Gender Information Value Date Recorded Sex Assigned at Female 06/08/2022 10:18 AM EDT Legal Sex Female 10:18 AM EDT Gender Identity Female 06/08/2022 10:18 AM EDT Sexual Orientation Straight 06/08/2022 10 :18 AM EDT documented as of this encounter Miscellaneous Notes * Telephone Encounter - Gisele Aguero - 03/20/2025 10:11 AM EDT TC from [place] ([facility]) requesting new referral for Endocrinology. Contact pt at [phone] Need enterprise architect documented in this encounter Plan of Treatment Not on file documented as of this encounter Visit Diagnoses Not on filedocumented in this encounter Additional Health Concerns Assessment Noted Time PHQ-9 Depression Total Score: 14 025 2:41 PM EDT documented as of this encounter Care Teams Hassock Maker Relationship Specialty Start Date End Date Amanda Watkins MD [address] [place] [id number] PCP - General Family Medicine 04/07/19 Hiro Ram FNP [address] [place] [address] Nurse Practitioner Family Medicine 07/06/23 Raad Arias, TheaD [address] [place] [address] Pharmacist Internal Medicine 10/19/24 [facility] 03/08/25 documented as of this encounter
--- OUTSIDE RECORDS SUMMARY | 2025-04-17 17:17 | XMS_ITS | Encounter Summary ---
Author Organization [employer] Address [address] [facility] [address] [place] [address] Care Team Providers Care Artisan Plasterer Name Role Phone Amanda Watkins MD Primary Care Provide r Hiro Ram CONFERENCE DIRECTOR Unavailable Unavailable Raad Arias PharmD Unavailable [phone] Reason for Visit * Reason Onset Date Comments Durable Medical Equipment 01/09/2025 Encounter Details Date Type Department Care Team (Late st Contact Info) Description 01/09/[address] [facility] [address] [place] [address] Amanda Watkins MD [address] [place] [address] Durable Medical Equipment Social History Tobacco Use [...] encounter Miscellaneous Notes * Telephone Encounter - Radha Stevenson - 01/09/2025 2:45 PM EDT Telephone call from patient???s daughter reporting that issues have been ongoing for several months. States that the current home-delivered DME script for ???pampers?? is not appropriate, as patientuses pull-ups. Daughter reports having made several requests for durable medical equipment (DME), including: recliner chair, bathroom chair, wipes, extra absorbent XL bed pads, and pull- ups. Also reports that [facility] has attempted to assist, but no one has returned their calls. documented in this encounter Plan of Treatment Not on file documented as of this encounter Visit Diagnoses Not on filedocumented in this encounter Additional Health Concerns Assessment Noted Time PHQ-9 Depression Total Score: 0 09/01/19 25 1:18 PM EST documented as of this encounter Care Teams Artisan Plasterer Relationship Specialty Start Date End Date Amanda Watkins MD [address] [place] [address] PCP - General Family Medicine 04/07/19 Hiro Ram FNP [address] [place] [address] Nurse Practitioner Family Medicine 07/06/23 Raad Arias, TheaD [address] [place] [address] Pharmacist Internal Medicine 10/19/24 [facility] 08/10/24 03/12/25 [facility] 03/08/25 documented as of this encounter
--- OUTSIDE RECORDS SUMMARY | 2025-04-17 17:17 | XMS_ITS | Encounter Summary ---
Author Organization [facility] Address [address] [facility] [address] [place] [address] Encounters * CPT with [facility] at [facility] on 2025-03-23 { reasonForRequest : pt experiencing extreme pain in left arm , patientRepo rts : , denies :[ Falls with head strike and LOC , Falls from a standing position, no LOC, patient is amnestic to the event , Falls with isolated injury and deformity noted to limb , Falls with inability to move post fall , Cool extremities after fall or injury , Weakness with fall, able to move all extremities ], chiefComplaints : Extremity Pain , pmh : Hypertension, COPD/Ast hma, Chronic Back Pain, Fibromyalgia, Osteoarthritis, Osteoporosis , allergies :&quot ;Codeine , otherAllergies :null, painAssessment : , visitOu tcome : , additionalComments : 74 y.o female complains of Extremity Pain - Symptoms started today \n\nCaregiver reports the pt is feeling unwell with left arm pain - History of same\n\nSeen in the emergency room last week with a negative work up\n\nDenies chest pain -Denies shortness of breath - Denies dizziness - Denies fever - Denies any recent falls or injury\n\nTaking prescribed pain medications with no relief\n\nWellness check requested \n\nI provided information on the mobile health provider response time and advised the patient and/or caregiver to monitor reported signs and symptoms. I discussed the warning signs of when to seek emergency care. } [facility] visit for female patient complaining of left shoulder pain. Patient is Azerbaijani-speaking and an senior stock plan administrator was used by phone throughout visit. Patient reports recent trip to the emergency department for same issue. Patient told she was prescribed oxycodone for ???Crisis in the shoulder requiring surgery???. Patient did not know the formal diagnosis that she got. Patient presents appearing well sitting in wheelchair in apartment. Patient reports severe left shoulder pain. Patient has been taking 5 mg oxycodone Q6 hours and experiencing breakthrough pain on top of that. Patient states her doctor told her not to take NSAID pain relievers. Vital signs taken islisted. Patient afebrile. Consulted with [facility] doctor timothy who advised that do patients chronic kidney disease we would not be able to administer NSAIDs or any other pain agents at this time. Patient told that she would have to follow up with primary care or go to the emergency department for any stronger pain medication. Patient education provided. IV_(FLUIDS_AND/OR_MEDICATION), MEDICATION_IM, ORAL_MEDICATION, WOUND_CARE, ORTHOSTATIC_VITAL_SIGNS Written by Medical [facility] on 2025-03-23
--- OUTSIDE RECORDS SUMMARY | 2025-04-17 17:17 | XMS_ITS | Clinical Summary ---
Author Organization [employer] Address [address] [place] [address] Care Team Providers Care Tape Coater Name Role Phone Amanda Watkins MD Primary Care Provide r Hiro Ram VISION TEACHER Unavailable Unavailable Raad Arias PharmD Unavailable [phone] Allergies Active Allergy Reactions Criticality Noted Date Comments Codeine Unknown 11/18/2022 Medications * This document contains information received from the source organization and may not represent a complete record from that organization. naloxone (Narcan) 4 mg/0.1 mL nasal spray [...] 15 MINUTES 100 tablet 1 023 Active FREESTYLE LITE test stripIndications: Type 2 diabetes mellitus with hyperglycemia, with long-term current use of insulin ([facility]) Use to test blood sugar 3 times daily 100 each 12 024 2024 Active Blood Glucose Monitoring Suppl (FreeStyle [place] Lite) w/Device kitIndications:Ty pe 2 diabetes mellitus with hyperglycemia, with long-term current use of insulin ([facility]) Use to test blood sugar 3 times daily 1 kit 024 Active Continuous Glucose Sensor (FreeStyle Mickey 2 Sensor) miscIndications:T ype 2 diabetes mellitus with other specified complication, with long-term current use of insulin ([facility]) Apply 1 sensor every 14 days 2 each 2 024 Active Continuous Glucose Baseball Inspector (FreeStyle Mickey 2 [place]) deviceIndications :Type 2 diabetes mellitus with other specified complication, with long-term current use of insulin ([facility]) Scan sensor every 8 hours 1 each 025 Active acetaminophen (Acetaminophen 8 Hour) 650 MG ER tablet Take 650 mg by mouth every 8 (eight) hours if needed for mild pain. Do not crush, chew, or split. Active omeprazole (PriLOSEC) [address] capsuleIndication s:Epigastric pain TAKE 1 CAPSULE BY MOUTH EVERY MORNING BEFORE BREAKFAST. DO NOT BREAK, CRUSH, DISSOLVE OR CHEW 30 capsule 025 Active hydrOXYzine HCl (Atarax) 25 MG tablet Take 1 tablet (25 mg) by mouth every 8 (eight) hours if needed for anxiety. 90 tablet 025 Active atorvastatin (Lipitor) 80 MG tablet TAKE 1 TABLET BY MOUTH EVERY EVENING 90 tablet 1 025 Active insulin degludec (Tresiba FlexTouch) 200 UNIT/ML injectionIndicati ons:Type 2 diabetes mellitus with hyperglycemia, with long-term current use of insulin ([facility]) Inject 64 units under the skin daily 18 mL 025 Active pen needle 32G x 4 mm miscIndications:T ype 2 diabetes mellitus with hyperglycemia, with long-term current use of insulin ([facility]) Use daily with insulin 100 each 3 025 2025 Active torsemide (Demadex) 20 MG tablet TAKE 1 TABLET BY MOUTH EVERY MORNING 30 tablet 3 025 Active traZODone (Desyrel) 150 MG tabletIndications :Recurrent major depressive episodes, mild ([facility]) Take 1 tablet (150 mg) by mouth at bedtime. 90 tablet 2 025 Active TRUEplus Lancets 33G miscIndications:T ype 2 diabetes mellitus with hyperglycemia, with long-term current use of insulin ([facility]) USE DIRECTED TO TEST BLOOD SUGAR THREE TIMES DAILY 100 each 5 025 Active Eye Itch Relief 0.035 % solutionIndicatio ns:Allergic conjunctivitis of both eyes INSTILL 1 DROP AFFECTED EYE(S) EVERY TWELVE HOURS NEEDED 10 mL 1 Active Oyster Shell Calcium 500 MG tablet TAKE 1 TABLET BY MOUTH TWICE DAILY IN THE MORNING AND AT BEDTIME 180 tablet 1 Active gabapentin (Neurontin) 300 MG capsuleIndication s:Type 2 diabetes mellitus with diabetic autonomic neuropathy, with long-term current use of insulin (CMS/HCC) Take 1 capsule (300 mg) by mouth 2 times daily. 60 capsule 2 025 2025 Active Eliquis 5 MG tabletIndications :Atrial fibrillation, unspecified type (CMS/HCC) TAKE 1 TABLET BY MOUTH TWICE DAILY IN THE MORNING AND AT BEDTIME 60 tablet 2 Active DULoxetine (Cymbalta) [address] capsule TAKE 1 CAPSULE BY MOUTH EVERY MORNING 30 capsule Active albuterol (2.5 MG/3ML) 0.083% nebulizer solution Take 3 mL by nebulization every 6 (six) hours. Active albuterol 108 (90 Base) MCG/ACT inhaler Inhale 1 puff if needed in the morning, at noon, in the evening, and at bedtime for wheezing or shortness of breath. Active levothyroxine (Synthroid, Levoxyl) 100 MCG tablet Take 1 tablet (100 mcg) by mouth before breakfast. 90 tablet Active cyclobenzaprine (Flexeril) 5 MG tabletIndications :Primary osteoarthritis, right shoulder Take 1 tablet (5 mg) by mouth 3 times daily for 20 days. 30 tablet 025 2024 Active lidocaine (Lidoderm) 5 % patchIndications: Primary osteoarthritis, right shoulder Apply 1 patch topically Once per day. Remove & discard patch within 12 hours or as directed by MD. 30 patch 1 Active docusate sodium (Colace) 100 MG capsuleIndication s:Slow transit constipation Take 1 capsule (100 mg) by mouth 2 times daily. 60 capsule 1 025 2024 Active ketoconazole (NIZOral) 2 % shampooIndication s:Seborrheic dermatitis Apply topically 2 (two) times a week. 120 mL 2 025 Active melatonin 5 MG tabletIndications :Primary insomnia Take 1 tablet (5 mg) by mouth at bedtime. 90 tablet 025 Active oxyCODONE-acetami nophen (Percocet) 5-325 MG tabletIndications :Chronic bilateral low back pain with bilateral sciatica Take 1 tablet by mouth every 6 (six) hours if needed for severe pain for up to 28 days. Do not start before April 06, 2025. 112 tablet 025 2024 Active amLODIPine (Norvasc) 5 MG tablet TAKE 1 TABLET BY MOUTH EVERY MORNING 30 tablet 3 Active Alcohol Swabs (Alcohol Prep) 70 % padsIndications:T ype 2 diabetes mellitus with hyperglycemia ([facility]) USE DIRECTED TO TEST BLOOD SUGAR THREE TIMES DAILY 100 each 11 025 Active Tirzepatide (Mounjaro) 5 MG/0.5ML solution auto-injectorIndi cations:Type 2 diabetes mellitus with diabetic autonomic neuropathy, with long-term current use of insulin ([facility]) Inject 5 mg under the skin 1 (one) time per week. 2 mL 3 025 Active Alcohol Swabs (Alcohol Prep) 70 % pads USE FOUR TIMES DAILY DIRECTED 100 each 11 024 2024 Discontinued amLODIPine (Norvasc) 5 MG tablet TAKE 1 TABLET BY MOUTH EVERY MORNING 30 tablet 3 025 2024 Discontinued Dulaglutide (Trulicity) 3 MG/0.5ML solution auto-injectorIndi cations:Type 2 diabetes mellitus with hyperglycemia, with long-term current use of insulin ([facility]) Inject 3 mg under the skin 1 (one) time per week. 2 mL 5 025 2024 Discontinued levothyroxine (Synthroid, Levoxyl) 75 MCG tabletIndications :Acquired hypothyroidism TAKE 1 TABLET BY MOUTH EVERY MORNING 30 tablet 2 025 2024 Discontinued(M ed list cleanup (will not trigger notification to Pharmacy)) Aspirin Low Dose 81 MG EC tabletIndications :Atrial fibrillation, unspecified type (CMS/HCC) TAKE 1 TABLET BY MOUTH EVERY MORNING 90 tablet 3 025 2024 Discontinued(M ed list cleanup (will not trigger notification to Pharmacy)) melatonin 3 MG tablet TAKE 1 TABLET BY MOUTH AT BEDTIME 60 tablet 1 025 2024 Discontinued oxyCODONE-acetami nophen (Percocet) 5-325 MG tabletIndications :Chronic bilateral low back pain with bilateral sciatica TAKE 1 TABLET BY MOUTH EVERY 6 HOURS NEEDED FOR SEVERE PAIN 112 tablet 025 2024 Discontinued Tirzepatide (Mounjaro) 2.5 MG/0.5ML solution auto-injectorIndi cations:Type 2 diabetes mellitus with diabetic autonomic neuropathy, with long-term current use of insulin ([facility]) Inject 2.5 mg under the skin 1 (one) time per week. 2 mL 2 025 2024 Discontinued(D ose adjustment) levothyroxine (Synthroid, Levoxyl) 100 MCG tablet Take 1 tablet by mouth before breakfast. 025 2024 Discontinued(R eorder (will not trigger notification to Pharmacy)) sulfamethoxazole- trimethoprim (Bactrim DS) 800-160 MG tabletIndications :Cellulitis of right lower extremity Take 1 tablet by mouth 2 times daily for 7 days. 14 tablet 025 2024 Active Problems Problem Noted Date Diagnosed Date Anemia 03/29/2025 Assessment & Plan (03/29/2025 2:58 PM EDT): CBC will be rechecked to see how is her hemoglobin Chronic gastritis 03/29/2025 Assessment & Plan (03/29/2025 2:57 PM EDT): Continue with omeprazole 40 mg in the morning Primary osteoarthritis, right shoulder Assessment & Plan (03/29/2025 2:59 PM EDT): I will prescribe the patient lidocaine patches and today I added short course of muscle relaxer to help Continue with oxycodone as prescribed Do not miss orthopedics appointment on April 23, 2025 Slow transit constipation 03/29/2025 Assessment & Plan (03/29/2025 2:57 PM EDT): I will prescribe the patient Colace 100 mg twice daily Seborrheic dermatitis 03/29/2025 Assessment & Plan (03/29/2025 2:59 PM EDT): I will prescribe ketoconazole shampoo and refer her to dermatology Primary insomnia 03/29/2025 Assessment & Plan (03/29/2025 2:59 PM EDT): Sleep hygiene counseling done today plan continue with trazodone 150 mg at bedtime I increased her melatonin to 5 mg at bedtime Cellulitis of right lower extremity 03/29/2025 Assessment & Plan (03/29/2025 2:58 PM EDT): I will treat her with Bactrim twice a day for 1 week MDD (major depressive disord er), recurrent episode, moderate 02/15/2025 Morbid obesity 02/15/2025 Assessment & Plan (02/15/2025 11:01 AM EDT): Today extensive discussion was done about life style modifications I advise healthy diet (low calorie) and cardiovascular exercise Long-term current use of opiate analgesic 2024 Type 2 diabetes mellitus wit h hyperglycemia, [...] Assessment & Plan (09/14/2024 6:46 PM EST): [facility] referral done today I advised not to miss appointment with cardiology Allergic conjunctivitis of both eyes 09/01/2024 Other constipation 09/01/2024 Assessment & Plan (09/14/2024 6:47 PM EST): I prescribed for her today lactulose, patient to report back if medication helped Mixed stress and urge urinary incontinence 05/19 Assessment & Plan (02/15/2025 9:34 AM EDT): Pull ups will be prescribed for patient Stage 3b chronic kidney disease 05/02/2024 Arthritis 04/24/2024 Bronchitis 04/24/2024 Obesity 04/24/2024 Atrial fibrillation 04/08/2024 Assessment & Plan (02/15/2025 10:55 AM EDT): Cardiology referral done today Congestive heart failure 04/08/2024 Gastroesophageal reflux disease 04/08/2024 Opioid dependence 04/08/2024 Retention of urine 04/08/2024 Hypothyroidism 04/08/2024 Assessment & Plan (09/14/2024 6:48 PM EST): TSH will be rechecked for further medication adjustment Depressive disorder 04/08/2024 Hypertensive disorder 04/08/2024 Asthma 04/08/2024 Obstructive sleep apnea syndrome 04/08/2024 Diabetes mellitus 04/08/2024 Assessment & Plan (03/29/2025 2:57 PM EDT): Diabetes is: not controlled but improved - Lab Results Component Value Date HGBA1C 8.4 (A) 03/29/2025 HGBA1C 11.4 (H) 09/01/2024 HGBA1C 11.6 (A) 09/01/2024 - Lab Results Component Value Date MICROALBUR 66.2 08/04/2021 CREATININE 1.16 03/11/2025 -Changes: Trulicity was discontinued and she was started on Mounjaro 2.5 mg weekly, continue to follow-up with pharmacy CDTM - Diabetic eye exam: Pending - Diabetic foot exam: Pending - Continue lifestyle modifications - Continue current medications - Follow up: 3 months Assessment & Plan (02/15/2025 11:01 AM EDT): Diabetes is: not controlled - Lab Results Component Value Date HGBA1C 11.4 (H) 09/01/2024 HGBA1C 11.6 (A) 09/01/2024 HGBA1C 7.2 (A) 03/06/2024 - Lab Results Component Value Date MICROALBUR 66.2 08/04/2021 CREATININE 1.62 (H) 01/05/2025 Continue to follow with CDTM - Diabetic eye exam:up to date - Diabetic foot exam:pending - Continue lifestyle modifications - Continue current medications - Follow up: 3 months Arterial insufficiency 04/08/2024 Exposure to COVID-19 virus [...] bilateral s ciatica 12/06/2023 Assessment & Plan (02/15/2025 11:02 AM EDT): C/w acetaminophen/oxycodone PRN as prescribed Assessment & Plan (12/06/2023 2:13 PM EDT): I will follow [facility] instructions and I will change her percocet form 10/325mg BID to 5/325mg 4 times daily I think patient will benefit from referral to pain management Cellulitis 10/25/2023 Assessment & Plan (10/27/2023 10:50 AM EDT): ED precautions reviewed if erythema progress, if fever, malaise... I advise for her to go to the emergency room Acquired hypothyroidism 10/25/2023 Assessment & Plan (10/27/2023 [...] medications every day I advised low-sodium diet [facility] referral done today I advised to monitor [...] 01/05/2018 Candidiasis of vagina 12/24/2017 Cough 12/24/2017 Coronary atherosclerosis 07/16/2016 Hyperlipidemia 07/16/2016 Onychomycosis of [...] retiring, patient will be transferred to new [facility] psychiatric provider. Patient is aware that appointments will be via televisit. Any issues or concerns contact [facility]. All her questions were answered and [...] advise low-sodium diet I advised weight reduction [facility] referral done Assessment & Plan (12/06/2023 2:12 [...] and excersise -patient will be refer to [facility] - Continue current medications, I can not make changes until I am sure patient is adherent to her medications, I will refer her for VNA services RTc 1 month Resolved Problems Problem Noted Date Diagnosed Date Resolved Date Vaginal itching 10/25/2023 02/15/2025 Recurrent major depressive episodes, mild 09/30/2017 12/14/2022 Assessment & Plan (11/18/2022 3:48 PM EDT): -[facility] called today -I will reduce trazodone dose to 100mg at bed time - prescribed only 5 tablet of lorazepam to be taken in case of panic attacks to aovid ED visits Urinary tract infectious disease 09/30/2017 02/15/2025 Encounters * This document contains information received from the source organization and may not represent a complete record from that organization. Date Type Department Care Team Description 04/17/2025 Telephone [facility] [address] [place] [address] Amanda Watkins MD Nurse Triage 04/16/2025 Travel 04/13/2025 Telephone [facility] [address] [place] [address] Kayley Alanis RN Pt cancelled Tele NURSE CLINICAL RV at check in; Review message from PCP 04/16/25 re missed NURSE CLINICAL appt 04/11/2025 Refill [facility] [address] [place] [address] Amanda Watkins MD Type 2 diabetes mellitus with hyperglycemia ([facility]/HCC) 04/08/2025 Refill [facility] [address] [place] [address] Amanda Watkins MD 04/02/2025 Refill [facility] [address] [place] [address] Amanda Watkins MD Chronic bilateral low back pain with bilateral sciatica 03/29/2025 2:00 PM EDT Office Visit [facility] [address] [place] [phone] Amanda Watkins MD Seborrheic dermatitis (Primary Dx); Type 2 diabetes mellitus with diabetic autonomic neuropathy, with long-term current use of insulin ([facility]); Anemia, unspecified type; Chronic gastritis, presence of bleeding unspecified, unspecified gastritis type; Primary osteoarthritis, right shoulder; Slow transit constipation; Primary insomnia; Cellulitis of right lower extremity 03/29/2025 Travel 03/28/2025 Refill [facility] [address] [place] [address] Sia Leon, PharmD 03/27/2025 Telephone [facility] [address], [place] [phone] Amanda Watkins MD Chart Prep 03/20/2025 Orders Only [facility] [address] [place] [address] Amanda Watkins MD Type 2 diabetes mellitus with diabetic autonomic neuropathy, with long-term current use of insulin (CMS/[facility]) (Primary Dx) 03/20/2025 Telephone [facility] [address] [facility] [place] [address] Lynne Lazaro, GATE TENDER Follow-up 03/20/2025 Telephone [facility] [address] [facility] [place] [address] Amanda Watkins MD Referral 03/20/2025 Telephone [facility] [address] [facility] [place] [address] Amanda Watkins MD Nurse Triage 03/16/2025 Refill [facility] [address] [facility] [place] [address] Amanda Watkins MD 03/14/2025 Telephone [facility] [address] [facility] [place] [address] Amanda Watkins MD FYI 03/11/2025 Orders Only GENERIC EXTERNAL DATA DEPARTMENT Provider, Generic External Data 03/09/2025 Orders Only GENERIC EXTERNAL DATA DEPARTMENT Provider, Generic External Data 03/08/2025 Patient Outreach [facility] [address] [facility] [place] [place] [address] Amanda Watkins MD Transition Of Care (Tcm) (HDF scheduled) 03/08/2025 Refill [facility] [address] [facility] [place] [address] Amanda Watkins MD Atrial fibrillation, unspecified type (CMS/[facility]) 03/03/2025 Orders Only GENERIC EXTERNAL DATA DEPARTMENT Provider, Generic External Data 03/02/2025 Refill [facility] [address] [facility] [place] [address] Amanda Watkins MD Chronic bilateral low back pain with bilateral sciatica 02/27/2025 Telephone [facility] [address] [place] [address] Amanda Watkins MD 02/23/2025 Telephone [facility] [address] [place] [address] Raad Arias, PharmD 02/16/2025 Telephone [facility] [address] [place] [address] Amanda Watkins MD DME pullups 02/15/2025 9:00 AM EDT Telemedicine [facility] [address] [place] [address] Amanda Watkins MD MDD (major depressive disorder), recurrent episode, moderate (CMS/HCC) (Primary Dx); Morbid obesity (CMS/HCC); Atrial fibrillation, unspecified type (CMS/HCC); Type 2 diabetes mellitus with diabetic autonomic neuropathy, with long-term current use of insulin (CMS/HCC); Stage 3b chronic kidney disease ([facility]); Dietary counseling; Exercise counseling; Opioid dependence with opioid-induced disorder (CMS/[facility]); Anxiety; Mixed stress and urge urinary incontinence; Chronic bilateral low back pain with bilateral sciatica 02/15/2025 Travel 02/14/2025 Telephone [facility] [address] [place] [address] Amanda Watkins MD Chart Prep 02/13/2025 Refill [facility] [address] [place] [address] Amanda Watkins MD 02/04/2025 Refill [facility] [address] [place] [address] Amanda Watkins MD 02/01/2025 Telephone [facility] [address] [place] [address] Amanda Watkins MD 01/26/2025 Refill [facility] [address] [place] [address] Amanda Watkins MD 01/24/2025 Refill [facility] [address] [place] [address] Amanda Watkins MD Chronic bilateral low back pain with bilateral sciatica 01/24/2025 Refill [facility] [address] [place] [address] Amanda Watkins MD Atrial fibrillation, unspecified type (CMS/HCC) 01/22/2025 Refill [facility] [address] [place] [address] Amanda Watkins MD Acquired hypothyroidism 01/17/2025 3:30 PM EDT Telemedicine [facility] [address] [place] [phone] Raad Arias, PharmD Type 2 diabetes mellitus with hyperglycemia, with long-term current use of insulin ([facility]) (Primary Dx) 01/17/2025 2:00 PM EDT Telemedicine [facility] [address] [place] [phone] Kayley Alanis RN Long-term current use of opiate analgesic 01/17/2025 Telephone [facility] [address] [place] [phone] Kayley Alanis, PHILLIP BPI Scoring 01/17/2025 Travel 01/16/[address] [address] Amanda Watkins MD Med Refill 01/16/[address] [address] Amanda Watkins MD Allergic conjunctivitis of both eyes from Last 3 Months Immunizations Immunization Administration [...] not want or need it 02/06 Comments No Sex and Gender Information Value Date Recorded Sex Assigned at Female 06/08/2022 10:18 AM EDT Legal Sex Female 10:18 AM EDT Gender Identity Female 06/08/2022 10:18 AM EDT Sexual Orientation Straight 06/08/2022 10 :18 AM EDT Last Filed Vital Signs Vital Sign Reading Time Taken Comments Blood Pressure 140/68 04/16/2025 3:42 PM EDT Pulse 70 04/16/2025 3:42 PM EDT Temperature 36.6 C (97.9 F) 03/29/2025 2:02 PM EDT Respiratory Rate 19 03/29/2025 2:02 PM EDT Oxygen Saturation 93% 03/29/2025 2:02 PM EDT Inhaled Oxygen Concentration - - Weight 109 kg (240 lb) 03/29/2025 2:02 PM EDT Height 154.9 cm (5' 1 ) 03/29/2025 2:02 PM EDT Body Mass Index 45.35 03/29/2025 2:02 PM EDT Plan of Treatment Health Maintenance Due Date Last Done Comments CT Colonography 1949 Colonoscopy 1949 Colorectal Cancer Screening 1949 FIT DNA/Cologuard 1949 FIT 1949 FOBT 1949 Sigmoidoscopy 1949 Diabetes: Foot Exam 1959 Eye Exam 1959 Hepatitis C Screening 1967 DTaP/Tdap/Td Vaccines (1 - Tdap) 03/13/2006 03/12/2006 Zoster Vaccines (2 of 3) 07/26/2015 05/31/2015 Diabetes: Urine Protein Screening 08/04/2022 08/04/2021 RSV Patients and Patients Aged 60 years or older (1 - 1-dose 75+ series) 2024 COVID-19 Vaccine ( - season) 2025 07/24/2021, 12/11/2020, 10/03/2020 Influenza Vaccine (#1) 2025 , 07/08/2018, 09/30/2017, Additional history exists Diabetes: Hemoglobin A1C 06/29/2025 025, 09/01/2024, 09/01/2024, Additional history exists Lipid Panel 09/01/2025 09/01/2024, 08/04/2021 Depression Monitoring 09/14/2025 03/14/2025, 025 Alcohol/Substance Use Screening 02/15/2026 02/15/2025 SDOH Screening 02/15/2026 02/15/2025 Tobacco Screening 03/29/2026 03/29/2025 Hepatitis B Vaccines Completed 06/07/2007, 11/01/2006, 03/12/2006 Pneumococcal Vaccine: 50+ Years Completed 12/06/2023, 07/16/2016, 02/17/2013, Additional history exists HIB Vaccines Aged Out [...] Diagnosis Comments POCT GLYCATED HEMOGLOBIN, TOTAL Routine 03/29/2025 2:06 PM EDT Type 2 diabetes mellitus with diabetic autonomic neuropathy, with long-term current use of insulin ([facility]) POCT GLUCOSE Routine 03/29/2025 2:04 PM EDT Type 2 diabetes mellitus with diabetic autonomic neuropathy, with long-term current use of insulin ([facility]) BASIC METABOLIC PANEL Routine 03/11/2025 8:31 AM EDT CBC WITH AUTO DIFFERENTIAL Routine 03/11/2025 8:31 AM EDT XR SHOULDER 2+ VIEWS RIGHT Routine 03/11/2025 8:21 AM EDT HIGH SENSITIVITY TROPONIN I Routine 03/09/2025 3:33 PM EDT C-REACTIVE PROTEIN Routine 03/09/2025 3: 33 PM EDT MAGNESIUM Routine 03/09/2025 3:33 PM EDT BASIC METABOLIC PANEL Routine 03/09/2025 3:33 PM EDT HEPATIC FUNCTION PANEL Routine 3:33 PM EDT URIC ACID Routine 03/09/2025 3:33 PM EDT CBC WITH AUTO DIFFERENTIAL Routine 03/09/2025 3:33 PM EDT SARS COV2/INFLUENZA A/B AND RSV RNA QL NAAT Routine 03/09/2025 3:33 PM EDT XR SHOULDER 2+ VIEWS RIGHT Routine 03/09/2025 2:11 PM EDT XR SHOULDER 2+ VIEWS RIGHT Routine 03/04/2025 12:[address] ABDOMEN PELVIS W CONTRAST Routine 03/03/2025 9:15 PM EDT HIGH SENSITIVITY TROPONIN I Routine 03/03/2025 8:16 PM EDT OBSX1 Routine 03/03/2025 8:16 PM EDT RED BLOOD COUNT Routine 03/03/2025 7:03 PM EDT TYPE AND SCREEN Routine 03/03/2025 7:03 PM EDT XR CHEST 1 VIEW Routine 03/03/2025 6:57 PM EDT IRON AND TOTAL IRON BINDING CAPACITY Routine 03/03/2025 5:30 PM EDT HIGH SENSITIVITY TROPONIN I Routine 03/03/2025 5:30 PM EDT COMPREHENSIVE METABOLIC PANEL Routine 03/03/2025 5:30 PM EDT B TYPE NATRIURETIC PEPTIDE (BNP) Routine 03/03/2025 5:30 PM EDT CBC WITH AUTO DIFFERENTIAL Routine 03/03/2025 5:30 PM EDT LIPID PANEL, STANDARD Routine 09/01/2024 2:09 PM EST ALBUMIN, RANDOM URINE W/CREATININE Routine 08/04/2021 10:15 AM EST from Last 3 Months or Most Recently Relevant to Health Maintenance Results * (ABNORMAL) POCT HGB A1C (03/29/2025 2:06 PM EDT) Pathologist [facility] Hemoglobin A1C 8.4(A) 4.0 - 5.7 % QC Media Lot # [id number] Lot# Expiration Date Blood 03/29/2025 2:06 PM EDT us Amanda Myers MD POINT OF CARE TEST EN TER/EDIT ORDERABLES Final Result * (ABNORMAL) POCT Glucose (03/29/2025 2:04 PM EDT) Pathologist [facility] Glucose Blood, POC 315(A) 60 - 200 mg/dL QC Media Lot # [id number] Lot# Expiration Date Blood Capillary blood specimen / Unknown 03/29/2025 2:04 PM EDT us Amanda Myers MD POINT OF CARE TEST EN TER/EDIT ORDERABLES Final Result * (ABNORMAL) CBC auto differential (03/11/2025 8:31 AM EDT) Only the most recent of3 resultswithin the time period is included. [facility] White Blood Count 8.5 4.8 - 10.8 X10*3/uL [facility] Red Blood Count 3.71(L) 4.20 - 5.50 X10*6/uL [facility] Hemoglobin 8.4(L) 12.0 - 16.0 g/dl [facility] Hematocrit 28.3(L) 37.0 - 47.0 % [facility] Mean Corpuscular Volume 76.3(L) 80.0 - 98.0 fL [facility] Mean Corpuscular Hemoglobin 22.6(L) 27.0 - 33.0 pg [facility] Mean Corpuscular HGB Conc 29.7(L) 31.0 - 35.0 g/dl [facility] Red Cell Distribution Width 20.6(H) 11.0 - 16.0 % [facility] Platelet Count 348 160 - 400 X10*3/uL [facility] Mean Platelet Volume 9.2(L) 9.4 - 12.3 fL [facility] Neutrophils Percent Auto 74.2(H) 45 - 73 % [facility] Imm Gran Pct Auto 1.2(H) 0.0 - 0.4 % [facility] Lymphocytes Percent Auto 10.9(L) 20 - 40 % [facility] Monocytes Percent Auto 11.3(H) 2 - 11 % [facility] Eosinophils Percent Auto 1.8 0 - 4 % [facility] Basophils Percent Auto 0.6 0 - 2 % [facility] NRBC Pct Auto 0.0 0.0 - 0.2 /100WBC [facility] Neutrophils Absolute Auto 6.3 2.0 - 8.3 x10*3/uL [facility] Imm Gran Abs Auto 0.10(H) 0.00 - 0.03 X10*3/uL [facility] Lymphocytes Absolute Auto 0.9(L) 1.2 - 4.9 X10*3/uL [facility] Monocytes Absolute Auto 1.0 0.1 - 1.2 X10*3/uL [facility] Eosinophils Absolute Auto 0.2 0.0 - 0.4 X10*3/uL [facility] Basophils Absolute Auto 0.1 0.0 - 0.2 X10*3/uL [facility] NRBC Abs Auto 0.000 0.0 - 0.012 X10*3/uL [facility] 03/11/2025 8:31 AM EDT 03/11/2025 8:33 AM EDT us Generic External Data Provider LAB BLOOD ORDERAB LES Final Result [facility] [address] [place] [phone] * (ABNORMAL) Basic Metabolic Panel (03/11/2025 8:31 AM EDT) Only the most recent of2 resultswithin the time period is included. Sodium 136 135 - 145 mmol/L [facility] Potassium 4.4 3.3 - 5.1 mmol/L [facility] Chloride 98 96 - 108 mmol/L [facility] Carbon Dioxide 32(H) 22 - 29 mmol/L [facility] Anion Gap 10(L) 12 - 20 [facility] Urea Nitrogen (BUN) 17(H) 9 - 16 mg/dL [facility] Creatinine, Serum 1.16 0.5 - 1.4 mg/dL [facility] Creatinine Clr Calc Pharmacy 48.9 [facility] Comment:Provided height and weight: 154.94 cm,113.2 kg.eGFR (calculated from the MDRD study equation) and eCrCl(calculated from the Cockcroft-Gault equation) are based ondifferent parameters and may not yield comparable results.If eCrCl result is absurd, please check patient'sheight/weight. Estimated Glomerular Filt Rate 46 [facility] Comment:Chronic Kidney Disea se: Estimated GFR < 60 mL/min/1.14e4Saacpx Kidney Disease: Estimated GFR < 15 mL/min/1.73m2 Glucose 332(H) 60 - 115 mg/dL [facility] Calcium 8.3(L) 8.4 - 10.2 mg/dL [facility] 03/11/2025 8:31 AM EDT 03/11/2025 8:33 AM EDT us Generic External Data Provider LAB BLOOD ORDERAB LES Final Result [facility] [address] [place] [address] [phone] * XR Shoulder 2+ Views Right (03/11/2025 8:21 AM EDT) Only the most recent of3 resultswithin the time period is included. Anatomical Region Laterality Modality Upper Extremities, Shoulder Right Radi ographic Imaging 03/11/2025 8:21 AM EDT Narrative 03/11/2025 8:23 AM EDT [address] [address] XRay Report Signed Patient: Mary Lou Godwin Z MR#: [id number] : 1950 Acct:[id number] Age/Sex: 74 / F ADM Date: 03/11/25 Loc: HO.ED Attending Dr: Ordering Physician: Yelena Alvarez MD Date of Service: 03/11/25 Procedure(s): XR shoulder RT min 2V Accession Number(s): [id number] cc: Amanda Watkins MD; Yelena Alvarez MD CLINICAL HISTORY: pain ; PT states no fall or accident, pain in right shoulder. 3 view right shoulder Comparison: CR/SR - XR SHOULDER 2 OR MORE VIEWS RIGHT - 03/09/25 15:11 EDT Findings: No fractures or dislocations. Moderate degenerative change involving the glenohumeral and acromioclavicular joints. Remote postsurgical appearance of the distal clavicle. No erosions. No radiopaque foreign body. IMPRESSION: 1. No acute findings. moderate chronic changes. This document has been electronically signed by: Paul Calderon MD on 03/11/2025 08:21:47 Dictated By: Paul Calderon MD Signed By: <Electronically signed by Paul Calderon MD in OV> 03/11/25821 DD/ 0 TD/TT: 03/11/25820 Representative Government Relations: Procedure Note Donotuseinterpreter, Image - 03/11/[address] [address] XRay Report Signed Patient: Mary Lou Godwin ZMR#: M [id number] : 1950cct:[id number] Age/Sex: 74 / FADM Date: 03/11/25 Loc: HO.ED Attending Dr: Ordering Physician: Yelena Alvarez MD Date of Service: 03/11/25 Procedure(s): XR shoulder RT min 2V Accession Number(s): [id number] cc: Amanda Watkins MD; Yelena Alvarez MD CLINICAL HISTORY: pain ; PT states no fall or accident, pain in rightshoulder. 3 view right shoulder Comparison: CR/SR - XR SHOULDER 2 OR MORE VIEWS RIGHT - 03/09/25 15:11 EDT Findings: No fractures or dislocations. Moderate degenerative change involving the glenohumeral and acromioclavicular joints. Remote postsurgical appearance of the distal clavicle. No erosions. No radiopaque foreign body. IMPRESSION: 1. No acute findings. moderate chronic changes. This document has been electronically signed by: Paul Calderon MD on 03/11/2025 08:21:47 Dictated By: Paul Calderon MD Signed By: <Electronically signed by Paul Calderon MD in OV> 03/11/25821 DD/ 0 TD/TT: 03/11/25820 Representative Government Relations: [facility] External Provider IMG XR PROCEDURES Edited Result - Final * High Sensitivity Troponin I (03/09/2025 3:33 PM EDT) Only the most recent of3 resultswithin the time period is included. [facility] TROPONIN I HIGH SENSITIVITY 11.0 <3.5 - 17.0 ng/L [facility] Comment:The [place] high sens itivity Troponin-I results should beused in conjunction with other diagnostic information suchas ECG, clinical observations and information, and patientsymptoms to aid in the diagnosis of SD. 03/09/2025 3:33 PM EDT 03/09/2025 3:42 PM EDT Generic External Data Provider LAB BLOOD ORDERAB LES Final Result [facility] [address] [place] [phone] * SARS-CoV-2 RNA, Influenza A/B, and RSV RNA, Ql NAAT (03/09/2025 3:33 PM EDT) Pathologist [facility] Influenza A PCR NEGATIVE Negative [facility] Influenza B PCR NEGATIVE Negative [facility] Resp Syncy Virus RNA Qual PCR NEGATIVE Negative [facility] SARS COV2 PCR NEGATIVE Negative [facility] Comment:All test results mus t be correlated with clinical findings.Negative results do not preclude SARS-CoV2, influenza Avirus, influenza B virus and/or RSV infectionand should not be used as the sole basis for treatment orother patient management decisions. Negative results must becombined with clinical observations, patient history, andepidemiological information.This test has not been evaluated for monitoring treatment ofinfection.This test has been authorized by the FDA under an EmergencyUse Authorization (EUA) for use by authorized laboratories.Testing performed on the [employer] GeneXpert utilizingreal-time RT-PCR.All SARS CoV2 and positive influenza A/B results arereported to [facility]. 03/09/2025 3:33 PM EDT 03/09/2025 3:42 PM EDT Generic External Data Provider LAB MICROBIOLOGY - GENERAL ORDERABLES Final Result Performing Organization Address [facility]/ZIP Co de Phone Number [facility] [address] [place] [phone] * (ABNORMAL) C-reactive Protein (03/09/2025 3:33 PM EDT) C Reactive Protein 4.69(H) < or = 0.50 mg/dL [facility] 03/09/2025 3:33 PM EDT 03/09/2025 3:42 PM EDT Generic External Data Provider LAB BLOOD ORDERAB LES Final Result Performing Organization Address [facility] Co de Phone Number [facility] [address] [place] [phone] * (ABNORMAL) Uric acid (03/09/2025 3:33 PM EDT) Uric Acid 7.8(H) 2.4 - 5.7 mg/dL [facility] 03/09/2025 3:33 PM EDT 03/09/2025 3:42 PM EDT us Generic External Data Provider LAB BLOOD ORDERAB LES Final Result Performing Organization Address [facility]/ZIP Co de Phone Number [facility] [address] [place] [phone] * Magnesium (03/09/2025 3:33 PM EDT) Magnesium 1.8 1.6 - 2.6 mg/dL [facility] 03/09/2025 3:33 PM EDT 03/09/2025 3:42 PM EDT us Generic External Data Provider LAB BLOOD ORDERAB LES Final Result Performing Organization Address [facility] de Phone Number [facility] [address] [place] [phone] * (ABNORMAL) Hepatic Function Panel (03/09/2025 3:33 PM EDT) Bilirubin, Total 0.3 0.0 - 1.0 mg/dL [facility] Bilirubin, Direct 0.1 0.0 - 0.5 mg/dL [facility] Aspartate Amino Transferase 22 5 - 31 U/L [facility] Alanine Aminotransferase <6 0 - 31 U/L [facility] Total Protein 6.7 6.5 - 8.0 g/dL [facility] Albumin Level 2.9(L) 3.5 - 5.0 g/dL [facility] Alkaline Phosphatase 74 39 - 117 U/L [facility] 03/09/2025 3:33 PM EDT 03/09/2025 3:42 PM EDT us Generic External Data Provider LAB BLOOD ORDERAB LES Final Result Performing Organization Address [facility] Co de Phone Number [facility] [address] [place] [phone] * CT Abdomen Pelvis w/ Contrast (03/03/2025 9:15 PM EDT) Anatomical Region Laterality Modality Body, Pelvis, Abdomen Computed T omography 03/03/2025 9:15 PM EDT Narrative 03/03/2025 9:17 PM EDT [address] [address] [address] Scan Report Signed Patient: Mary Lou Godwin MR#: [id number] : 1950 Acct:[id number] Age/Sex: 74 / F ADM Date: 03/03/25 Loc: HO.ED Attending Dr: Ordering Physician: Ingris Song PA-C Date of Service: 03/03/25 Procedure(s): CT abdomen pelvis w IV con Accession Number(s): [id number] cc: Ingris Song PA-C; Amanda Watkins MD Report Number: [id number]: Total DLP = 1159.00 mGy-cm CLINICAL HISTORY: anemic, ?Gi bleed CT Abdomen and Pelvis W Contrast COMPARISON: CT/SR - CT ABDOMEN PELVIS WO IV CON - 11/25/24 11:29 EDT FINDINGS: Detail limited by artifacts. Small bilateral pleural effusions with adjacent atelectasis and/or infiltrates. Cardiomegaly. Normal liver. Normal spleen. Bilateral renal cysts. No hydronephrosis. Normal adrenal glands. Normal pancreas. Cholelithiasis. No CT evidence of acute cholecystitis. No biliary dilation. Air-fluid levels in nondistended small bowel. No mucosal thickening. No evidence of obstruction. No visible intraluminal IV contrast extravasation in the GI tract at the time of the study. No evidence of acute appendicitis. Unremarkable bladder. Calcified uterine fibroids. No ascites. No pneumoperitoneum. No lymphadenopathy. No acute fracture. Degenerative changes in the spine. No abdominal aortic aneurysm. Status post ventral herniorrhaphy with mesh. Anasarca. IMPRESSION: Air-fluid levels in nondistended small bowel, which could be due to enteritis or dysmotility. Anasarca. Small bilateral pleural effusions with adjacent atelectasis and/or infiltrates. Nonemergent/incidental findings above. This document has been electronically signed by: Jonatan Malone MD on 03/03/2025 21:15:14 Dictated By: Jonatan Malone MD Signed By: <Electronically signed by Jonatan Malone MD in OV> 03/03/252115 DD/ 14 TD/TT: 03/03/252114 Representative Government Relations: Procedure Note Donotuseinterpreter, Image - 03/03/[address] [address] [address] Scan Report Signed Patient: Mary Lou Godwin ZMR#: M [id number] : 9Acct:[id number] Age/Sex: 74 / FADM Date: 03/03/25 Loc: HO.ED Attending Dr: Ordering Physician: Ingris Song PA-C Date of Service: 03/03/25 Procedure(s): CT abdomen pelvis w IV con Accession Number(s): [id number] cc: Ingris Song PA-C; Amanda Watkins MD Report Number: [id number]: Total DLP = 1159.00 mGy-cm CLINICAL HISTORY: anemic, ?Gi bleed CT Abdomen and Pelvis W Contrast COMPARISON: CT/SR - CT ABDOMEN PELVIS WO IV CON - 11/25/24 11:29 EDT FINDINGS: Detail limited by artifacts. Small bilateral pleural effusions with adjacent atelectasis and/or infiltrates. Cardiomegaly. Normal liver. Normal spleen. Bilateral renal cysts. No hydronephrosis. Normal adrenal glands. Normal pancreas. Cholelithiasis. No CT evidence of acute cholecystitis. No biliarydilation. Air-fluid levels in nondistended small bowel. No mucosal thickening. No evidence of obstruction. No visible intraluminal IV contrast extravasation in the GI tract at the time of the study. No evidence of acute appendicitis. Unremarkable bladder. Calcified uterine fibroids. No ascites. No pneumoperitoneum. No lymphadenopathy. No acute fracture. Degenerative changes in the spine. No abdominal aortic aneurysm. Status post ventral herniorrhaphy with mesh. Anasarca. IMPRESSION: Air-fluid levels in nondistended small bowel, which could be due to enteritis or dysmotility. Anasarca. Small bilateral pleural effusions with adjacent atelectasis and/or infiltrates. Nonemergent/incidental findings above. This document has been electronically signed by: Jonatan Malone MD on 03/03/2025 21:15:14 Dictated By: Jonatan Malone MD Signed By: <Electronically signed by Jonatan Malone MD in OV> 03/03/252115 DD/ 14 TD/TT: 03/03/252114 Representative Government Relations: [facility] External Provider IMG CT PROCEDURES Edited Result - Final * OBSX1 (03/03/2025 8:16 PM EDT) OBS1 NEGATIVE NEGATIVE [facility] 03/03/2025 8:16 PM EDT 03/03/2025 8:20 PM EDT Generic External Data Provider LAB BLOOD ORDERAB LES Final Result [facility] [address] [place] [phone] * XR Chest 1 View (03/03/2025 6:57 PM EDT) Anatomical Region Laterality Modality Chest Radiographic Franca ging 03/03/2025 6:57 PM EDT Narrative 03/03/2025 6:59 PM EDT [address] [address] XRay Report Signed Patient: Mary Lou Godwin MR#: M [id number] : 1950 Acct:[id number] Age/Sex: 74 / F ADM Date: 03/03/25 Loc: .ED Attending Dr: Ordering Physician: Ingris Song PA-C Date of Service: 03/03/25 Procedure(s): XR chest 1V Accession Number(s): [id number] cc: Ingris Song PA-C; Amanda Watkins MD CLINICAL HISTORY: SOB Chest Radiograph Comparison: 08/22/24 Findings: Cardiomegaly. Normal mediastinal contours. No pneumothorax. No opacity. No pleural effusion. Normal upper abdomen. No acute fracture. Impression: No acute findings. This document has been electronically signed by: Amanda Forbes MD on 03/03/2025 18:57:10 Dictated By: Amanda Pagan MD Signed By: <Electronically signed by Amanda Pagan MD in OV> 03/03/251857 DD/ 56 TD/TT: 03/03/251856 Representative Government Relations: Procedure Note Rayter, Image - 03/03/[address] [address] XRay Report Signed Patient: Mary Lou Godwin ZMR#: M [id number] : 9Acct:[id number] Age/Sex: 74 / FADM Date: 03/03/25 Loc: .ED Attending Dr: Ordering Physician: Ingris Song PA-C Date of Service: 03/03/25 Procedure(s): XR chest 1V Accession Number(s): [id number] cc: Ingris Song PA-C; Amanda Watkins MD CLINICAL HISTORY: SOB Chest Radiograph Comparison: 08/22/24 Findings: Cardiomegaly. Normal mediastinal contours. No pneumothorax. No opacity. No pleural effusion. Normal upper abdomen. No acute fracture. Impression: No acute findings. This document has been electronically signed by: Amanda Forbes MD on 03/03/2025 18:57:10 Dictated By: Amanda Pagan MD Signed By: <Electronically signed by Amanda Pagan MD in OV> 03/03/251857 DD/ 56 TD/TT: 03/03/251856 Representative Government Relations: [facility] External Provider IMG XR PROCEDURES Edited Result - Final * (ABNORMAL) Iron And Total Iron Binding Capacity (03/03/2025 5:30 PM EDT) [facility] Iron 10(L) 30 - 160 mcg/dL [facility] Total Iron Binding Capacity 209(L) 228 - 428 mcg/dL [facility] Percent Iron Saturation 5(L) 15 - 50 % [facility] Unsaturated Iron Binding 199 ug/dL [facility] 03/03/2025 5:30 PM EDT 03/03/2025 5:35 PM EDT Generic External Data Provider LAB BLOOD ORDERAB LES Final Result Performing Organization Address [facility]/ZIP Co de Phone Number [facility] [address] [place] [phone] * (ABNORMAL) B Type Natriuretic Peptide (BNP) (03/03/2025 5:30 PM EDT) [facility] B Type Natriuretic Peptide 337(H) <100 pg/mL [facility] 03/03/2025 5:30 PM EDT 03/03/2025 5:35 PM EDT [employer] External Data Provider LAB BLOOD ORDERAB LES Final Result Performing Organization Address [facility]/ZIP Co de Phone Number [facility] [address] [place] [phone] * (ABNORMAL) Comprehensive Metabolic Panel (03/03/2025 5:30 PM EDT) [facility] Sodium 135 135 - 145 mmol/L [facility] Potassium 4.7 3.3 - 5.1 mmol/L [facility] Chloride 96 96 - 108 mmol/L [facility] Carbon Dioxide 30(H) 22 - 29 mmol/L [facility] Anion Gap 14 12 - 20 [facility] Urea Nitrogen (BUN) 26(H) 9 - 16 mg/dL [facility] Creatinine, Serum 1.44(H) 0.5 - 1.4 mg/dL [facility] Creatinine Clr Calc Pharmacy 38.6 [facility] Comment:Provided height and weight: 152.4 cm,112.9 kg.eGFR (calculated from the MDRD study equation) and eCrCl(calculated from the Cockcroft-Gault equation) are based ondifferent parameters and may not yield comparable results.If eCrCl result is absurd, please check patient'sheight/weight. Estimated Glomerular Filt Rate 35 [facility] Comment:Chronic Kidney Disea se: Estimated GFR < 60 mL/min/1.65t4Gjowti Kidney Disease: Estimated GFR < 15 mL/min/1.73m2 Glucose 370(HH) 60 - 115 mg/dL [facility] Comment:Critical value for t est(s): GLUR Results called to and readback by: NORMAN Person calling: [employer] Date: 03/03/25 Time:1800 Calcium 7.9(L) 8.4 - 10.2 mg/dL [facility] Bilirubin, Total 0.3 0.0 - 1.0 mg/dL [facility] Aspartate Amino Transferase 17 5 - 31 U/L [facility] Alanine Aminotransferase <6 0 - 31 U/L [facility] Total Protein 6.7 6.5 - 8.0 g/dL [facility] Albumin Level 2.8(L) 3.5 - 5.0 g/dL [facility] Alkaline Phosphatase 73 39 - 117 U/L [facility] 03/03/2025 5:30 PM EDT 03/03/2025 5:35 PM EDT us Generic External Data Provider LAB BLOOD ORDERAB LES Final Result [facility] [address] [place] [phone] * (ABNORMAL) Lipid Panel, Standard (09/01/2024 2:09 PM EST) Triglycerides 241(H) <150 mg/dL [facility] Comment:Desirable Triglyceri de: less than 150 mg/dLBorderline High Triglyceride 150-199 mg/dLHigh Triglyceride: 200-499 mg/dLVery High Triglyceride: greater than or equal to 5OO mg/dL Cholesterol 107 <200 mg/dL [facility] Comment:Desirable Cholestero l: less than 200 mg/dLBorderline High Cholesterol: 200-239 mg/dLHigh Cholesterol: greater than 239 mg/dL LDL Cholesterol Calculated 34 <100 mg/dL [facility] Comment:Desirable LDL: less than 100 mg/dLNear Optimal/Above Optimal LDL: 110- 129 mg/dLBorderline High LDL: 130-159 mg/dLHigh LDL: 160-189 mg/dLVery High LDL: greater than or equal to 190 mg/dL HDL Cholesterol 25(L) >40 mg/dL [facility] Comment:Desirable HDL: great er than 40 mg/dL Note: This HDL assay may give artificially low results in patients with liver disease. 09/01/2024 2:09 PM EST 09/01/2024 4:09 PM EST Amanda Myers MD LAB BLOOD ORDERABLES Final Result [facility] [address] [place] [phone] * (ABNORMAL) ALBUMIN, RANDOM URINE W/CREATININE (08/04/2021 10:15 AM EST) Microalbumin Urine 66.2 See Note: mg/dL [facility] Comment: Reference Range: Reference Range Not established Verified by repeat analysis. Microalb/Creat Ratio 480(H) <30 mcg/mg creat [facility] Comment: The ADA defines abnormalities in albumin excretion as follows: Albuminuria Category Result (mcg/mg creatinine) Normal to Mildly increased <30 Moderately increased 30-299 Severely increased > OR = 300 The ADA recommends that at least two of three specimens collected within a 3-6 month period be abnormal before considering a patient to be within a diagnostic category. Creatinine, Urine 138 20 - 275 mg/dL [facility] 08/04/2021 10:1 5 AM EST us Ann Kulkarni DO LAB URINE ORDERABLES Final R esult [facility] [address] from Last 3 Months or Most Recently Relevant to Health Maintenance Insurance [facility] ASSISTED OPTIONS (HMO D-SNP) [facility] Care Teams Tape Coater Relationship Specialty Start Date End Date Amanda Watkins MD [address] [place] [address] PCP - General Family Medicine 04/07/19 Hiro Ram FNP [address] [place] [address] Nurse Practitioner Family Medicine 07/06/23 Raad Arias, TheaD [address] [place] [phone] Pharmacist Internal Medicine 10/19/24 [employer] [facility] 03/08/25
--- OUTSIDE RECORDS SUMMARY | 2025-04-17 17:17 | XMS_ITS | Continuity of Care Document ---
Author Name [facility], Medical Address [address] [place] [address] Organization Unknown Address [address] [place] [address] Medications No known medications Problems No known problems
--- OUTSIDE RECORDS SUMMARY | 2025-04-17 17:17 | XMS_ITS | Encounter Summary ---
Author Organization [employer] Address 75 [facility] 7t [place] [address] Care Team Providers Care Spa Director Name Role Phone Amanda Watkins MD Primary Care Provide r Hiro Ram AIRBORNE OPERATIONS Unavailable Unavailable Raad Arias PharmD Unavailable [phone] Reason for Visit * Reason Comments Med Refill Encounter Details Date Type Department Care Team (Late st Contact Info) Description 07/05/2024 Refill [facility] MEDICINE [address] [place] [address] Amanda Watkins MD [address] [place], [place] [phone] Social History Tobacco Use Types Packs/Day Years [...] documented as of this encounter Care Teams Spa Director Relationship Specialty Start Date End Date Amanda Watkins MD [address] [place] [phone] PCP - General Family Medicine 04/07/19 Hiro Ram FNP [address] [place] [phone] Nurse Practitioner Family Medicine 07/06/23 Raad Arias, Carlos [address] [place] [address] Pharmacist Internal Medicine 10/19/[address] [facility] Care 07/03/22 08/16/24 Ja [facility] 08/10/24 03/12/25 [facility] 03/08/25 documented as of this encounter
--- OUTSIDE RECORDS SUMMARY | 2025-04-17 17:17 | XMS_ITS | Encounter Summary ---
Author Organization [employer] Address 75 [facility] 7t [place] [address] Care Team Providers Care Bulb Assembler Name Role Phone Amanda Watkins MD Primary Care Provide r Hiro Ram SUPERVISOR ROLLING ROOM Unavailable Unavailable Raad Arias PharmD Unavailable [phone] Reason for Visit * Reason Onset Date Comments Hospital Follow-up 08/16/2024 Encounter Details Date Type Department Care Team (Late st Contact Info) Description 08/16/2024 Telephone [facility] MEDICINE 230 [place] [address] Amanda Watkins MD [address] [place], [place] [phone] Hospital Follow-up Social History Tobacco Use Types [...] from pt requesting a HDF appt. Hospital: [facility] Date of admission: 08/12/24 Discharge date: 08/15/2024 Diagnosed: (water in the lungs) *Send message to [place] [facility] Care Coordinators documented in this encounter Plan of Treatment Not on file documented as of this encounter Visit Diagnoses Not on filedocumented in this encounter Additional Health Concerns Assessment Noted Time PHQ-9 Depression Total Score: 10 024 3:23 PM EDT documented as of this encounter Care Teams Bulb Assembler Relationship Specialty Start Date End Date Amanda Watkins MD [address] [place] [address] PCP - General Family Medicine 04/07/19 Hiro Ram FNP [address] [place] [address] Nurse Practitioner Family Medicine 07/06/23 Raad Arias, TheaD [address] [place] [address] Pharmacist Internal Medicine 10/19/24 [facility] 07/03/22 08/16/24 Ja [facility] 08/10/24 03/12/25 [facility] 03/08/25 documented as of this encounter
--- OUTSIDE RECORDS SUMMARY | 2025-04-17 17:17 | XMS_ITS | Encounter Summary ---
Author Organization [employer] Address 75 [facility] 7t [place] [address] Care Team Providers Care Pipe Tester Name Role Phone Amanda Watkins MD Primary Care Provide r Hiro Ram ARMHOLE PRESSER Unavailable Unavailable Raad Arias PharmD Unavailable [phone] Reason for Visit * Reason Onset Date Comments Durable Medical Equipment 07/26/2024 Encounter Details Date Type Department Care Team (Late st Contact Info) Description 07/26/2024 Telephone [facility] MEDICINE [address] [place] [address] Amanda Watkins MD [address] [place] [address] Durable Medical Equipment Social History Tobacco Use [...] Daughter calling in regards to DME stating [facility] stating they do not take pt's [...] documented as of this encounter Care Teams Pipe Tester Relationship Specialty Start Date End Date Amanda Watkins MD [address] [place] [phone] PCP - General Family Medicine 04/07/19 Hiro Ram FNP [address] [place] [address] Nurse Practitioner Family Medicine 07/06/23 Raad Arias, Carlos [address] [place] [address] Pharmacist Internal Medicine 10/19/24 [facility] 07/03/22 08/16/24 Ja [facility] 08/10/24 03/12/25 [facility] 03/08/25 documented as of this encounter
--- OUTSIDE RECORDS SUMMARY | 2025-04-17 17:17 | XMS_ITS | Encounter Summary ---
Author Organization [employer] Address 75 [facility] 7t [place] [address] Care Team Providers Care Summer School Coordinator Name Role Phone Amanda Watkins MD Primary Care Provide r Hiro Ram Unavailable Unavailable Raad Arias PharmD Unavailable [phone] Reason for Visit * Reason Comments Med Refill Encounter Details Date Type Department Care Team (Late st Contact Info) Description 11/18/2023 Refill [facility] MEDICINE [address] [place] [address] Hiro Ram FNP Social History Tobacco Use [...] documented as of this encounter Care Teams Summer School Coordinator Relationship Specialty Start Date End Date Amanda Watkins MD [address] [place] [address] PCP - General Family Medicine 04/07/19 Hiro Ram FNP [address] [place] [address] Nurse Practitioner Family Medicine 07/06/23 Raad Arias, TheaD [address] [place] [phone] Pharmacist Internal Medicine 10/19/24 [facility] Home Care 07/03/22 08/16/24 Ja [facility] 08/10/24 03/12/25 [facility] 03/08/25 documented as of this encounter
--- OUTSIDE RECORDS SUMMARY | 2025-04-17 17:17 | XMS_ITS | Encounter Summary ---
Author Organization [employer] Address 75 [facility] 7t [place] [address] Care Team Providers Care Welfare Eligibility Interviewer Name Role Phone Amanda Watkins MD Primary Care Provide r Hiro Ram CULTURE ROOM WORKER Unavailable Unavailable Raad Arias PharmD Unavailable [phone] Reason for Visit * Reason Onset Date Comments Med Refill 01/03/2025 Encounter Details Date Type Department Care Team (Late st Contact Info) Description 01/03/[address] [facility] MEDICINE 230 [place] [address] Amanda Watkins MD [address] [place], [place] [phone] Chronic bilateral low back pain with bilateral [...] Telephone Encounter - Kayley Alanis RN - 01/03/2025 3:19 PM EDT 09/15/24 - Per PCP Please let patient know if she cancels or no show to next appointment unfortunately I will have to discontinue her medication thank you. 09/07/24 - Dtr cancelled at check in 07/28/24 - [facility], no ph, dtr not with her 12/10/23 - [facility] Tele MARINE SAFETY OFFICER RV * Telephone Encounter - Sky Sánchez - 01/03/2025 1:12 PM EDT TC from pt requesting medication refill. Medications needing refill: oxyCODONE-acetaminophen (Percocet) 5-325 MG tablet To be sent to: [facility] - [place], [place] - [address] documented in this encounter Plan of Treatment Not on file documented as of this encounter Visit Diagnoses Diagnosis Chronic bilateral low back pain with bilateral sciatica documented in this encounter Additional Health Concerns Assessment Noted Time PHQ-9 Depression Total Score: 0 09/01/19 1:18 PM EST documented as of this encounter Care Teams Welfare Eligibility Interviewer Relationship Specialty Start Date End Date Amanda Watkins MD [address] [place] [address] PCP - General Family Medicine 04/07/19 Hiro Ram FNP [address] [place] [address] Nurse Practitioner Family Medicine 07/06/23 Raad Arias, TheaD [address] [place] [phone] Pharmacist Internal Medicine 10/19/24 [facility] 08/10/24 03/12/25 [facility] 03/08/25 documented as of this encounter
--- OUTSIDE RECORDS SUMMARY | 2025-04-17 17:17 | XMS_ITS | Encounter Summary ---
Author Organization [employer] Address 75 [facility] 7t [place] [address] Care Team Providers Care Gas Fitter Apprentice Name Role Phone Amanda Watkins MD Primary Care Provide r Hiro Ram CMO & PRESIDENT Unavailable Unavailable Raad Arias PharmD Unavailable [phone] Reason for Visit * Reason Onset Date Comments Med Refill 01/16/2025 Encounter Details Date Type Department Care Team ([facility] st Contact Info) Description 01/16/2025 Telephone [facility] MEDICINE [address] [place] [address] Amanda Watkins MD [address] [place] [address] Med Refill Social History Tobacco Use Types Packs/Day Years [...] encounter Miscellaneous Notes * Telephone Encounter - Ann Ratliff LPN - 01/16/2025 10:59 AM EDT Medication was sent to [facility] on 12/28/24 #30 with 2 refills. * Telephone Encounter - Radha Stevenson - 01/16/2025 10:54 AM EDT TC from pt requesting medication refill. Medications needing refill : levothyroxine (Synthroid, Levoxyl) 75 MCG tablet To be sent to: [facility] pharmacy documented in this encounter Plan of Treatment Not on file documented as of this encounter Visit Diagnoses Not on filedocumented in this encounter Additional Health Concerns Assessment Noted Time PHQ-9 Depression Total Score: 0 09/01/19 1:18 PM EST documented as of this encounter Care Teams Gas Fitter Apprentice Relationship Specialty Start Date End Date Amanda Watkins MD [address] [place] [phone] PCP - General Family Medicine 04/07/19 Hiro Ram FNP [address] [place] [address] Nurse Practitioner Family Medicine 07/06/23 Raad Arias, PharmD 230 [place] [address] Pharmacist Internal Medicine 10/19/24 [facility] 08/10/24 03/12/25 [facility] 03/08/25 documented as of this encounter
--- OUTSIDE RECORDS SUMMARY | 2025-04-17 17:18 | XMS_ITS | Encounter Summary ---
Author Organization [email or web address] Address 75 [facility] 7t [place] [address] Care Team Providers Care Veneer Grader Name Role Phone Amanda Watkins MD Primary Care Provide r Hiro Ram BURNISHING MACHINE OPERATOR Unavailable Unavailable Raad Arias PharmD Unavailable [phone] Reason for Visit * Reason Onset Date Comments Hospital Follow-up 04/04/2024 Encounter Details Date Type Department Care Team (Late st Contact Info) Description 04/04/2024 Telephone [facility] MEDICINE 230 [place] [address] Amanda Watkins MD 230 [place], [place] [phone] Hospital Follow-up Social History Tobacco Use Types [...] pt requesting a HDF appt. [facility] Date of admission: 03/18 Discharge date: 03/21 Diagnosed: Cellulitis documented in this encounter Plan of Treatment Not on file documented as of this encounter Visit Diagnoses Not on filedocumented in this encounter Additional Health Concerns Assessment Noted Time PHQ-9 Depression Total Score: 10 024 3:23 PM EDT documented as of this encounter Care Teams Veneer Grader Relationship Specialty Start Date End Date Amanda Watikns MD [address] [place] [address] PCP - General Family Medicine 04/07/19 Hiro Ram FNP [address] [place] [address] Nurse Practitioner Family Medicine 07/06/23 Raad Arias, TheaD [address] [place] [phone] Pharmacist Internal Medicine 10/19/24 [facility] 07/03/22 08/16/24 Ja [facility] 08/10/24 03/12/25 [facility] 03/08/25 documented as of this encounter
--- OUTSIDE RECORDS SUMMARY | 2025-04-17 17:18 | XMS_ITS | Encounter Summary ---
Author Organization [employer] Address 75 [facility] 7t [place] [address] Care Team Providers Care Counter Clerk Tractor Parts Name Role Phone Amanda Watkins MD Primary Care Provide r Hiro Ram GEOTHERMAL HEAT PUMP MACHINIST Unavailable Unavailable Raad Arias PharmD Unavailable [phone] Reason for Visit * Reason Comments Med Refill Encounter Details Date Type Department Care Team (Late st Contact Info) Description 04/11/2025 Refill [facility] MEDICINE 230 [place] [address] Amanda Watkins MD [address] [place], [place] [phone] Type 2 diabetes mellitus with hyperglycemia (CMS/HCC) Social History Tobacco Use Types Packs/Day [...] Diagnoses Diagnosis Type 2 diabetes mellitus with hyperglycemia (CMS/HCC) documented in this encounter Additional Health Concerns Assessment Noted Time PHQ-9 Depression Total Score: 14 025 2:41 PM EDT documented as of this encounter Care Teams Counter Clerk [employer]ractor Parts Relationship Specialty Start Date End Date Amanda Watkins MD [address] [place] [address] PCP - General Family Medicine 04/07/19 Hiro Ram FNP [address] [place] [address] Nurse Practitioner Family Medicine 07/06/23 Raad Arias, Carlos [address] [place] [address] Pharmacist Internal Medicine 10/19/24 [facility] 03/08/25 documented as of this encounter
--- OUTSIDE RECORDS SUMMARY | 2025-04-17 17:18 | XMS_ITS | Encounter Summary ---
Author Organization [employer] Address 75 [facility] 7t [place] [address] Care Team Providers Care Juice Weigher Name Role Phone Amanda Watkins MD Primary Care Provide r Hiro Ram SOURCING ANALYST Unavailable Unavailable Raad Arias PharmD Unavailable [phone] Reason for Visit * Reason Onset Date Comments Nurse Triage 04/17/2025 Encounter Details Date Type Department Care Team ([facility] st Contact Info) Description 04/17/2025 Telephone [facility] MEDICINE [address] [place] [address] Amanda Watkins MD [address] [place] [address] Nurse Triage Social History Tobacco Use Types Packs/Day Years [...] encounter Miscellaneous Notes * Telephone Encounter - Danyelle Huitron RN - 04/17/2025 1:11 PM EDT Call to Musa FISHER with [facility], reports pt having BS running in 300s past 1 week. Family is unsure of what DM management. Was not made aware of change to mounjaro. VNA did see glucometer in the home but they had not checked her BS during [facility] visit. Pt also having right shoulder pain x 2 weeks. Pt having pain with checking of BP. Per [facility] was advised family/caregivers of need for patient to be assessed by either PCP or ER. Family/caregiver stated would take patient in . [facility]NA not sure that pt would actually be taken, concerned that there is always an alternate caregiver and patient care plan not always followed. Pt does have CCA. Can be offered isntED as alternative. Call returned to Mary Lou Cisneros to triage below at [phone]. No answer, line not available. . Call to all other alterante numbers. Left VM to return call. Number listed as contact in [facility] visit notes as [phone]. No answer, LVM to return call to [facility] triage line. Pt has my chart set up. Will send portal message as well. Will forward to PCP and team for follow up PRN. * Telephone Encounter - Jeff Stanford - 04/17/2025 12:54 PM EDT Tc from [facility] reporting that the pt blood sugar has been at 320. Pt is A- symptomatic. Pt has been in pain with her shoulder for the past week. VNA stated that for today's home visit pt was crying screaming in pain. Contact musa at [phone] documented in this encounter Plan of Treatment Not on file documented as of this encounter Visit Diagnoses Not on filedocumented in this encounter Additional Health Concerns Assessment Noted Time PHQ-9 Depression Total Score: 14 025 2:41 PM EDT documented as of this encounter Care Teams Juice Weigher Relationship Specialty Start Date End Date Amanda Watkins MD [address] [place] [address] PCP - General Family Medicine 04/07/19 Hiro Ram FNP [address] [place] [address] Nurse Practitioner Family Medicine 07/06/23 Raad Arias, Carlos [address] [place] [address] Pharmacist Internal Medicine 10/19/24 [facility] 03/08/25 documented as of this encounter
--- OUTSIDE RECORDS SUMMARY | 2025-04-17 17:18 | XMS_ITS | Encounter Summary ---
Author Organization [employer] Address [address] [facility] [address] [place] [address] Care Team Providers Care Sheet Taker Name Role Phone Amanda Watkins MD Primary Care Provide r Hiro Ram WOODEN BOAT BUILDER Unavailable Unavailable Raad Arias PharmD Unavailable [phone] Encounter Details Date Type Department Care Team (Late st Contact Info) Description 12/22/2024 Orders Only [facility] [address] [place] [address] Amanda Watkins MD [address] [place] [address] Social History Tobacco Use Types Packs/Day Years [...] on file documented as of this encounter Procedures Procedure Name Priority Date/Time Associated Diagnosis Comments XR HUMERUS RIGHT Routine 01/05/2025 9:35 AM EDT XR ELBOW 1-2 VIEWS RIGHT Routine 01/05/2025 8:27 AM EDT XR SHOULDER 2+ VIEWS RIGHT Routine 01/05/2025 8:27 AM EDT documented in this encounter Results * XR Humerus Right (01/05/2025 9:35 AM EDT) Anatomical Region Laterality Modality Upper Extremities, Humerus Right Radio graphic Imaging 01/05/2025 9:35 AM EDT Narrative 01/05/2025 9:59 AM EDT [address] [address] XRay Report Signed Patient: Mary Lou Godwin MR#: [id number] : 1950 Acct:[id number] Age/Sex: 74 / F ADM Date: 01/05/25 Loc: HO.ED Attending Dr: Ordering Physician: Yelena Alvarez MD Date of Service: 01/05/25 Procedure(s): XR humerus RT Accession Number(s): [id number] cc: Amanda Watkins MD; Yelena Alvarez MD EXAMINATION: XR SHOULDER, RIGHT XR HUMERUS, RIGHT CLINICAL INFORMATION: pain COMPARISON: None available. TECHNIQUE: AP and Y view of the right humerus and shoulder. FINDINGS: Limited due to limited views and positioning. No fracture, dislocation, or suspicious bone lesion. No malalignment. Remainder of the soft tissue and bony structures appear normal. XR/XR humerus RT IMPRESSION: No acute findings right shoulder and right humerus. Electronically signed by: Dilip Hammer MD 01/05/2025 09:56 AM EDT RP Dictated By: Dilip Hammer MD Signed By: <Electronically signed by Dilip Hammer MD in OV> 01/05/2556 DD/ 4 TD/TT: 01/05/25947 Brass Finisher: Procedure Note Donotuseinterpreter, Image - 01/05/[address] [address] XRay Report Signed Patient: Mary Lou Godwin ZMR#: M [id number] : 9Acct:[id number] Age/Sex: 74 / FADM Date: 01/05/25 Loc: .ED Attending Dr: Ordering Physician: Yelena Alvarez MD Date of Service: 01/05/25 Procedure(s): XR humerus RT Accession Number(s): [id number] cc: Amanda Watkins MD; Yelena Alvarez MD EXAMINATION: XR SHOULDER, RIGHT XR HUMERUS, RIGHT CLINICAL INFORMATION: pain COMPARISON: None available. TECHNIQUE: AP and Y view of the right humerus and shoulder. FINDINGS: Limited due to limited views and positioning. No fracture, dislocation, or suspicious bone lesion. No malalignment. Remainder of the soft tissue and bony structures appear normal. XR/XR humerus RT IMPRESSION: No acute findings right shoulder and right humerus. Electronically signed by: Dilip Hammer MD 01/05/2025 09:56 AM EDT RP Dictated By: Dilip Hammer MD Signed By: <Electronically signed by Dilip Hammer MD in OV> 01/05/2556 DD/ 4 TD/TT: 01/05/25947 Brass Finisher: [facility] External Provider IMG XR PROCEDURES Edited Result - Final * XR Shoulder 2+ Views Right (01/05/2025 8:27 AM EDT) Anatomical Region Laterality Modality Upper Extremities, Shoulder Right Radi ographic Imaging 01/05/2025 8:27 AM EDT Narrative 01/05/2025 9:59 AM EDT [place] [address] XRay Report Signed Patient: Mary Lou Godwin MR#: [id number] : 1950 Acct:[id number] Age/Sex: 74 / F ADM Date: 01/05/25 Loc: HO.ED Attending Dr: Ordering Physician: Yelena Alvarez MD Date of Service: 01/05/25 Procedure(s): XR shoulder RT min 2V Accession Number(s): [id number] cc: Amanda Watkins MD; Yelena Alvarez MD EXAMINATION: XR SHOULDER, RIGHT XR HUMERUS, RIGHT CLINICAL INFORMATION: pain COMPARISON: None available. TECHNIQUE: AP and Y view of the right humerus and shoulder. FINDINGS: Limited due to limited views and positioning. No fracture, dislocation, or suspicious bone lesion. No malalignment. Remainder of the soft tissue and bony structures appear normal. XR/XR shoulder RT min 2V IMPRESSION: No acute findings right shoulder and right humerus. Electronically signed by: Dilip Hammer MD 01/05/2025 09:56 AM EDT RP Dictated By: Dilip Hammer MD Signed By: <Electronically signed by Dilip Hammer MD in OV> 01/05/2556 DD/ 6 TD/TT: 01/05/25947 Brass Finisher: Procedure Note Donotuseinterpreter, Image - 01/05/[address] [address] XRay Report Signed Patient: Mary Lou Godwin ZMR#: M [id number] : 1950cct:[id number] Age/Sex: 74 / FADM Date: 01/05/25 Loc: HO.ED Attending Dr: Ordering Physician: Yelena Alvarez MD Date of Service: 01/05/25 Procedure(s): XR shoulder RT min 2V Accession Number(s): [id number] cc: Amanda Watkins MD; Yelena Alvarez MD EXAMINATION: XR SHOULDER, RIGHT XR HUMERUS, RIGHT CLINICAL INFORMATION: pain COMPARISON: None available. TECHNIQUE: AP and Y view of the right humerus and shoulder. FINDINGS: Limited due to limited views and positioning. No fracture, dislocation, or suspicious bone lesion. No malalignment. Remainder of the soft tissue and bony structures appear normal. XR/XR shoulder RT min 2V IMPRESSION: No acute findings right shoulder and right humerus. Electronically signed by: Dilip Hammer MD 01/05/2025 09:56 AM EDT Dictated By: Dilip Hammer MD Signed By: <Electronically signed by Dilip Hammer MD in OV> 01/05/25 0956 DD/ 6 TD/TT: 01/05/25 0948 Brass Finisher: [facility] External Provider IMG XR PROCEDURES Edited Result - Final * XR Elbow 1-2 Views Right (01/05/2025 8:27 AM EDT) Anatomical Region Laterality Modality Upper Extremities, Elbow Right Radiogr aphic Imaging 01/05/2025 8:27 AM EDT Narrative 01/05/2025 9:57 AM EDT [address] [address] XRay Report Signed Patient: Mary Lou Godwin Z MR#: M [id number] : 1950 Acct:[id number] Age/Sex: 74 / F ADM Date: 01/05/25 Loc: HO.ED Attending Dr: Ordering Physician: Yelena Alvarez MD Date of Service: 01/05/25 Procedure(s): XR elbow RT 2V Accession Number(s): [id number] cc: Amanda Watkins MD; Yelena Alvarez MD EXAMINATION: XR ELBOW, RIGHT CLINICAL INFORMATION: pain COMPARISON: None available. TECHNIQUE: AP, lateral, and oblique views of the right elbow. FINDINGS: No fracture or malalignment. No joint effusion evident. 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 Minimal spurring of the condyles. No soft tissue abnormality. XR/XR elbow RT 2V IMPRESSION: No acute findings of the right elbow. Electronically signed by: Dilip Hammer MD 01/05/2025 09:54 AM EDT RP Dictated By: Dilip Hammer MD Signed By: <Electronically signed by Dilip Hammer MD in OV> 01/05/25 0954 DD/ 6 TD/TT: 01/05/25 0948 Brass Finisher: Procedure Note Donotuseinterpreter, Image - 01/05/2025 [place] [address] XRay Report Signed Patient: Mary Lou Godwin ZMR#: M [id number] : 9Acct:[id number] Age/Sex: 74 / FADM Date: 01/05/25 Loc: HO.ED Attending Dr: Ordering Physician: Yelena Alvarez MD Date of Service: 01/05/25 Procedure(s): XR elbow RT 2V Accession Number(s): [id number] cc: Amanda Watkins MD; Yelena Alvarez MD EXAMINATION: XR ELBOW, RIGHT CLINICAL INFORMATION: pain COMPARISON: None available. TECHNIQUE: AP, lateral, and oblique views of the right elbow. FINDINGS: No fracture or malalignment. No joint effusion evident. 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 Minimal spurring of the condyles. No soft tissue abnormality. XR/XR elbow RT 2V IMPRESSION: No acute findings of the right elbow. Electronically signed by: Dilip Hammer MD 01/05/2025 09:54 AM EDT RP Dictated By: Dilip Hammer MD Signed By: <Electronically signed by Dilip Hammer MD in OV> 01/05/25 0954 DD/ TD/TT: 01/05/25 0948 Brass Finisher: [facility] External Provider IMG XR PROCEDURES Edited Result - Final documented in this encounter Visit Diagnoses Not on filedocumented in this encounter Additional Health Concerns Assessment Noted Time PHQ-9 Depression Total Score: 0 09/01/19 1:18 PM EST documented as of this encounter Care Teams Sheet Taker Relationship Specialty Start Date End Date Amanda Watkins MD [address] [place] [address] PCP - General Family Medicine 04/07/19 Hiro Ram FNP [address] [place] [address] Nurse Practitioner Family Medicine 07/06/23 Raad Arias, Carlos [address] [place] [address] Pharmacist Internal Medicine 10/19/24 Ja [facility] 08/10/24 03/12/25 [facility] 03/08/25 documented as of this encounter
--- OUTSIDE RECORDS SUMMARY | 2025-04-17 17:18 | XMS_ITS | Encounter Summary ---
Author Organization [employer] Address [address] [facility] 7t [place] [address] Care Team Providers Care Convex Grinder Name Role Phone Amanda Watkins MD Primary Care Provide r Hiro Ram RESTAURANT RECRUITER Unavailable Unavailable aRad Arias PharmD Unavailable [phone] Reason for Visit * Reason Onset Date Comments Hospital Follow-up 03/23/2024 Encounter Details Date Type Department Care Team (Late st Contact Info) Description 03/23/2024 Telephone [facility] MED[facility]INE [address] [place] [address] Amanda Watkins MD [address] [place], [place] [phone] Hospital Follow-up Social History Tobacco Use Types [...] from pt requesting a HDF appt. Hospital: [facility] Date of admission: 03/18 Discharge date: 03/21 Diagnosed: Cellulitis documented in this encounter Plan of Treatment Not on file documented as of this encounter Visit Diagnoses Not on filedocumented in this encounter Additional Health Concerns Assessment Noted Time PHQ-9 Depression Total Score: 10 024 3:23 PM EDT documented as of this encounter Care Teams Convex Grinder Relationship Specialty Start Date End Date Amanda Watkins MD [address] [place] [address] PCP - General Family Medicine 04/07/19 Hiro Ram FNP [address] [place] [address] Nurse Practitioner Family Medicine 07/06/23 Raad Arias, TheaD [address] [place] [address] Pharmacist Internal Medicine 10/19/24 [facility] 07/03/22 08/16/24 Ja [facility] 08/10/24 03/12/25 [facility] 03/08/25 documented as of this encounter
--- OUTSIDE RECORDS SUMMARY | 2025-04-17 17:18 | XMS_ITS | Encounter Summary ---
Author Organization [employer] Address [address] [facility] 7t [place] [address] Care Team Providers Care Cloth Doubling Machine Operator Name Role Phone Amanda Watkins MD Primary Care Provide r Hiro Ram INTERACTIVE MEDIA SPECIALIST Unavailable Unavailable Raad Arias PharmD Unavailable [phone] Encounter Details Date Type Department Care Team (Latest Contact Info) Description 04/16/2025 Travel Social History Tobacco Use Types Packs/Day [...] documented as of this encounter Care Teams Cloth Doubling Machine Operator Relationship Specialty Start Date End Date Amanda Watkins MD [address] [place] [address] PCP - General Family Medicine 04/07/19 Hiro Ram FNP [address] [place] [address] Nurse Practitioner Family Medicine 07/06/23 Raad Arias, TheaD [address] [place] [address] Pharmacist Internal Medicine 10/19/24 [facility] 03/08/25 documented as of this encounter
--- OUTSIDE RECORDS SUMMARY | 2025-04-17 17:18 | XMS_ITS | Encounter Summary ---
Author Organization [employer] Address [address] [facility] [address]t [place] [address] Care Team Providers Care Director Of Research Name Role Phone Amanda Watkins MD Primary Care Provide r Hiro Ram SENIOR ASIC ENGINEER Unavailable Unavailable Raad Arias PharmD Unavailable [phone] Encounter Details Date Type Department Care Team (Late st Contact Info) Description 06/27/2024 Orders Only [facility] MEDICINE [address] [place] [address] Amanda Watkins MD [address] [place] [address] Social History Tobacco Use Types Packs/Day Years Used Date Smoking Tobacco: Never Passive Smoke Exposure: Never Smokeless Tobacco: Never Depression Answer Date Recorded Patient Health Questionnaire-9 Score 10 01/13/2024 Patient Health Questionnaire-9 Score 10 01/13/2024 Last PHQ-9: Questionnaire Data Not on file 0 01/13/2024 Housing Stability Answer Date Recorded What is your housing situation today? I have ramiro ismmons 05/24/[address] you li [...] of this encounter Care Teams Director Of Research Relationship Specialty Start Date End Date Amanda Watkins MD [address] [place] [address] PCP - General Family Medicine 04/07/19 Hiro Ram FNP [address] [place] [address] Nurse Practitioner Family Medicine 07/06/23 Raad Arias, TheaD [address] [place] [address] Pharmacist Internal Medicine 10/19/24 [facility] Care 07/03/22 08/16/24 Ja [facility] 08/10/24 03/12/25 [facility] 03/08/25 documented as of this encounter
--- OUTSIDE RECORDS SUMMARY | 2025-04-17 17:18 | XMS_ITS | Encounter Summary ---
Author Organization [employer] Address [address] [facility] 7[address] [place] [address] Care Team Providers Care Senior Research Project Manager Name Role Phone Amanda Watkins MD Primary Care Provide r Hiro Ram CORPORATE SAFETY MANAGER Unavailable Unavailable Raad Arias PharmD Unavailable [phone] Reason for Visit * Reason Onset Date Comments Pt cancelled Tele SENIOR COUNSEL COMMERCIAL RV at check in 04/13/2025 Review message from PCP 04/16/25 re missed SENIOR COUNSEL COMMERCIAL lidya t 04/13/2025 Encounter Details Date Type Department Care Team (Late st Contact Info) Description 04/13/2025 Telephone [facility] MEDICINE [address] [place] [address] Kayley Alanis RN Pt cancelled Tele SENIOR COUNSEL COMMERCIAL RV at check in; Review message from PCP 04/16/25 re missed SENIOR COUNSEL COMMERCIAL appt Social History Tobacco Use Types Packs/Day Years [...] Telephone Encounter - Kayley Alanis RN - 04/16/2025 9:35 AM EDT Received the following message from PCP this morning: Please let patient know I am going to give her a last opportunity, if she misses another appointment or breaks contract I will have to taper and discontinue her oxycodone thank you. TC via P/I#[id number], no answer. L/M asking her to call back to review message from PCP regarding missed appt Wednesday. * Telephone Encounter - Kayley Alanis RN - 04/13/2025 11:54 AM EDT Pt cancelled SENIOR COUNSEL COMMERCIAL RV Tele appt today at check in. TC via P/I#[id number], no answer. Left message asking patient to call back to reschedule. Will update PCP. * Telephone Encounter - Kayley Alanis RN - 04/13/2025 10:49 AM EDT Pt cancelled Tele SENIOR COUNSEL COMMERCIAL RV appt at check in. desk maker called patient for checkin for Tele SENIOR COUNSEL COMMERCIAL appt. Pt stated she had an emergency and couldn't speak on the phone. documented in this encounter Plan of Treatment Not on file documented as of this encounter Visit Diagnoses Not on filedocumented in this encounter Additional Health Concerns Assessment Noted Time PHQ-9 Depression Total Score: 14 025 2:41 PM EDT documented as of this encounter Care Teams Senior Research Project Manager Relationship Specialty Start Date End Date Amanda Watkins MD [address] [place] [address] PCP - General Family Medicine 04/07/19 Hiro Ram FNP [address] [place] [address] Nurse Practitioner Family Medicine 07/06/23 Raad Arias, TheaD [address] [place] [address] Pharmacist Internal Medicine 10/19/24 [facility] 03/08/25 documented as of this encounter
--- NOTE | 2025-04-17 22:37 | PM.EVENT ---
Event Note Date of Service: 04/17/25 Event Note: 74 yo female right shoulder pain >1 month. Presented to the ED . CT scan rt shoulder Impression: 1. Large amount of gas and fluid within the subdeltoid space suggesting infection with a gas-forming organism. 2. Lytic change at the acromioclavicular joint suggesting a septic joint. This document has been electronically signed by: Michael Hernadez MD on 04/17/2025 21:23:50 Dr Goldsmith discussed with ED provider, decision was made for ED provider to asp shoulder and give iv abx Ortho admit for continued monitoring NPO after midnight for Arthroscopic lavage/washout Time Spent With Patient Time: Total time managing care of this patient today ____ minutes.
--- NOTE | 2025-04-17 23:18 | PC.NURSE ---
Addendum entered by Marixa Burgos 04/17/25 23:20: abx also delayed d/t MD at bedside for procedure to drain fluid in R shoulder. sample collected for lab Original Note: abx delayed, unable to obtain IV access. multiple RN attempts. U/S IV 20g L upper arm placed by provider at this time
--- NOTE | 2025-04-17 23:31 | P.EN_ITS ---
Event Note Date of Service: 04/17/25 Event Note: pt admitted by orthopedics for ?R shoulder septic arthritis. CT R shoulder with large amount of gas and fluid within the subdeltoid space suggesting infection with a gas-forming organism. Lytic change at the acromioclavicular joint suggesting a septic joint. pt reported woresning R shoulder pain for the past month. no numbness or weakness. hx of joint aspirations and injections. home pain management not working with gabapentin and oxycodone. No fever, chest pa in, shortness of breath, nausea or vomiting. No recent trauma. No rash. She was seen twice in March for the same symptoms with negative x-rays. The patient has appointment with ortho on Wednesday. Right shoulder pain/septic arthritis - plan per ortho - received vancomycin and ceftriaxone in ED - plan for joint aspiration/washout tomorrow hypothyroid - continue levothyroxine HFpEF, no acute exacerbation - hold torsemide x 24 hours due to possible septic joint Type 2 diabetes - currently NPO - sliding scale insulin as needed - Lantus nightly - hold Trulicity Anemia, chronic and stable - Hemoglobin 8.6, hematocrit 28.2 - no need for blood transfusion at this time CKD3B - cr at baseline - avoid nephrotoxins when possible chronic a fib - hold eliquis due to procedure tomorrow - continue rate control morbid obesity - BMI 43.2 - weight loss encouraged med rec pending Time Spent With Patient Time: Total time managing care of this patient today ____ minutes.
[2025-04-18] VITALS (14 sets, daily range): BP systolic 130–183; BP diastolic 38–101; PULSE 60–90; RESP 14–21; TEMP 36.2–36.9; O2SAT 95–100
[2025-04-18 00:41] LABS: Source Synovial Fluid right shoulder
[2025-04-18 01:20] LABS: MN% 8.2 %; PMN% 91.8 %; RBC Synovial Fluid 0.105 X10*6/uL
[2025-04-18 01:26] LABS: BF Shift QC OK YES; Lymphocytes Synovial Fluid 9 %
[2025-04-18 01:27] LABS: Monocytes Synovial Fluid 11 %; Neutrophils Synovial Fluid 80 %
--- NOTE | 2025-04-18 01:53 | PC.NURSE ---
IV does not draw back, IV states downward occlusion. IV catheter appears kinked, attempted to straighten. Attempted new IV in LAC, unsuccessful. Asked the provider for an US guided IV, vanco is paused until able to regain access.
--- NOTE | 2025-04-18 02:21 | PC.NURSE ---
20g IV placed in right hand by RN. Great blood return, flushing well. Vanco restarted at this time.
[2025-04-18 05:06] LABS: MANUAL DIFF FLAG NO
[2025-04-18 05:11] LABS: Hematocrit 28.2 % (37.0-47.0); Hemoglobin 8.5 g/dl (12.0-16.0); Imm Gran Abs Auto 0.01 X10*3/uL (0.00-0.03); Imm Gran Pct Auto 0.2 % (0.0-0.4); Lymphocytes Absolute Auto 1.1 X10*3/uL (1.2-4.9); Mean Corpuscular HGB Conc 30.1 g/dl (31.0-35.0); Mean Corpuscular Hemoglobin 23.9 pg (27.0-33.0); Mean Corpuscular Volume 79.4 fL (80.0-98.0); NRBC Abs Auto 0.000 X10*3/uL (0.0-0.012); NRBC Pct Auto 0.0 /100WBC (0.0-0.2); Platelet Count 270 X10*3/uL (160-400); Red Blood Count 3.55 X10*6/uL (4.20-5.50); White Blood Count 5.6 X10*3/uL (4.8-10.8)
[2025-04-18 05:53] LABS: Alanine Aminotransferase < 6 U/L (0-31); Albumin Level 2.7 g/dL (3.5-5.0); Alkaline Phosphatase 54 U/L (39-117); Anion Gap 14 (12-20); Aspartate Amino Transferase 13 U/L (5-31); Blood Urea Nitrogen 29 mg/dL (9-16); Calcium 8.6 mg/dL (8.4-10.2); Carbon Dioxide 33 mmol/L (22-29); Chloride 97 mmol/L (96-108); Creatinine Clr Calc Pharmacy 45.6; Estimated Glomerular Filt Rate 45; Potassium 4.5 mmol/L (3.3-5.1); Sodium 139 mmol/L (135-145); Total Protein 6.3 g/dL (6.5-8.0)
[2025-04-18 07:46] LABS: Glucose, Whole Blood 195 mg/dL (60-115)
[2025-04-18] MEDS: 0.9 % Sodium Chloride Flush 3 ML SYRINGE IVFLUSH ×3 (07:49→20:22)
--- NOTE | 2025-04-18 08:09 | PM.CNOR ---
History of Present Illness HPI Consult date: 04/18/25 Chief complaint: Rt septic shoulder Narrative: Ms. Adria Robert is a 74 year old female with a past medical history of anemia, hypothyroidism, CHF, depression, CAD, DM, HTN who presents to the ED today with her [employer] with concerns of asthma exacerbation. who presented to the emergency department for evaluation of severe right shoulder pain. She denies any injury or trauma. She reports one month of ongoing shoulder pain. Denies illicit drug use, tobacco use and alcohol use. She has used oxycodone and gabapentin in the past with no relief. While in the emergency department a CT scan was obtained and suggestive of septic joint. The Ed provider aspirated the shoulder joint and reported 5cc of purulent aspirate. The patient was admitted to the orthopedic service for further evaluation and treatment. Review of Systems Review of Systems: Yes all other systems are reviewed and are negative PMFSH Past Medical History Medical History Urinary incontinence (HFpEF) heart failure with preserved ejection fraction Anxiety Insomnia CKD (chronic kidney disease) CKD stage 3 due to type 2 diabetes mellitus Leg abrasion Abuse of non-prescription analgesics Type 2 diabetes mellitus with unspecified complications Other and unspecified hyperlipidemia Essential hypertension Atherosclerotic cardiovascular disease Urgency incontinence Osteoporosis Arthritis Asthma Hypertension Fibromyalgia Diabetes mellitus Surgical History Surgical History H/O tubal ligation History of hernia repair Social History Social History Household Members: Children Household Members Other:: son Housing: Apartment Are you a primary child care director to a significant other at home: No Do you presently have visiting nurse or other home services: No Unable to assess alcohol history related to: Unknown Alcohol intake: never 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 Patient Tobacco Use Status: Never used Tobacco Smoked in Last 30 Days: No e-Cigarette/Vaping Use: Never Used Use of substances other than those prescribed or required for medical reasons: No Advance Directives: Yes Advance Directives on File: Yes Advance Directives Date on File: 04/07/24 Do you have a plan to hurt others: No Plan Nutrition Risks: No Nutritional Risk service: No Sexual orientation: Straight/Heterosexual Meds Allergies Allergy/AdvReac Type Severity Reaction Status Date / Time codeine (CODEINE) Allergy Intermediate HALLUCINATI Verified 04/17/25 14:25 ONS Active Medications: Current Medications Acetaminophen (Acetaminophen 325 Mg Tablet) 650 mg PO Q6H PRN PRN Reason: Pain, Mild 1-3,fever,headache Calcium Carbonate (Calcium Carbonate 750 Mg Tab.Chew) 750 mg PO Q4H PRN PRN Reason: Heartburn Dextrose (Dextrose 50 % 25 Gm/50 Ml Syringe) 25 gm IVPUSH Q15M PRN; Protocol PRN Reason: per Hypoglycemia Standing Ord. Enoxaparin Sodium (Enoxaparin Sodium 40 Mg/0.4 Ml Syringe) 40 mg SUBCUT Q24H JULIANNE On Hold: 04/17/25 23:30 Last Admin: 04/18/25 00:40 Dose: Not Given Gabapentin (Gabapentin 300 Mg Capsule) 300 mg PO BID JULIANNE Glucose (Glucose Gel 15 Gm Gel..Gram.) 15 gm PO Q15M PRN; Protocol PRN Reason: per Hypoglycemia Standing Ord. Hydromorphone HCl (Hydromorphone Hcl 0.5 Mg/0.5 Ml Syringe) 0.5 mg IVPUSH Q4H PRN; Protocol PRN Reason: Pain, Severe (Pain Scale 7-10) Insulin Glargine (Insulin Glargine,Hum.Rec.Anlog 100 Unit/Ml 10 Ml Vial) 20 unit SUBCUT BEDTIME [facility] Insulin Human Lispro (Insulin Lispro 100 Unit/Ml 3 Ml Vial) 0 unit SUBCUT QIDACHS [facility]; Protocol Last Admin: 04/18/25 07:51 Dose: 2 unit Levothyroxine Sodium (Levothyroxine Sodium 100 Mcg Tablet) 100 mcg PO DAILY@0600 [facility] Last Admin: 04/18/25 06:00 Dose: 100 mcg Magnesium Hydroxide (Milk Of Magnesia 30 Ml Oral.Susp) 30 ml PO DAILY PRN PRN Reason: Constipation Melatonin (Melatonin 3 Mg Tablet) 6 mg PO BEDTIME PRN PRN Reason: Insomnia Sodium Chloride (0.9 % Sodium Chloride Flush 3 Ml Syringe) 3 ml IVFLUSH QSHIFT [facility] Last Admin: 04/18/25 07:49 Dose: 3 ml Home Medications ?Medication ?Instructions ?Recorded ?Confirmed ?Last Taken ?Type atorvastatin 80 mg tablet 80 mg PO BEDTIME 04/07/21 03/22/25 10/05/24 History duloxetine 20 mg capsule,delayed 20 mg PO DAILY 03/18/24 03/22/25 04/05/24 History release omeprazole 40 mg capsule,delayed 40 mg PO DAILY@0630 03/18/24 03/22/25 10/06/24 History release ketotifen fumarate 0.025 % (0.035 1 drp ophthalmic (eye) Q12H PRN 10/06/24 03/22/25 Unknown History %) eye drops (Eye Itch Relief) Eye Irritation trazodone 150 mg tablet 150 mg PO BEDTIME 10/06/24 03/22/25 10/05/24 History calcium carbonate (Oyster Shell 500 mg PO BID 12/06/24 03/22/25 Unknown History Calcium 500) hydroxyzine HCl 25 mg tablet 25 mg PO Q8H PRN anxiety 12/06/24 03/22/25 Unknown History albuterol sulfate 2.5 mg/3 mL 2.5 mg inhalation Q6H PRN 03/04/25 03/22/25 Unknown History (0.083 %) solution for nebulization Shortness Of Breath Or Wheezing albuterol sulfate 90 mcg/actuation 2 puff inhalation QID PRN 03/04/25 03/22/25 Unknown History aerosol inhaler Shortness Of Breath Or Wheezing bacitracin 500 unit/gram topical 1 appl topical BID 03/04/25 03/22/25 Unknown History ointment dulaglutide 3 mg/0.5 mL 3 mg subcut FR 03/04/25 03/22/25 Unknown History subcutaneous pen injector (Trulicity) gabapentin 300 mg capsule 300 mg PO BID 03/04/25 03/22/25 Unknown History aspirin 81 mg tablet,delayed 81 mg PO QAM 04/18/25 Unknown History release cyclobenzaprine 5 mg tablet 5 mg PO TID 04/18/25 Unknown History docusate sodium 100 mg capsule 100 mg PO BID 04/18/25 Unknown History insulin degludec 200 unit/mL (3 64 unit subcut DAILY 04/18/25 Unknown History mL) subcutaneous pen (Tresiba FlexTouch U-200 insulin) melatonin 5 mg tablet 5 mg PO BEDTIME 04/18/25 Unknown History tirzepatide 5 mg/0.5 mL 5 mg subcut QWEEK 04/18/25 Unknown History subcutaneous pen injector (Lamnot) Physical Exam Vital Signs: Vital Signs: Last Vital Signs Temp 98.3 F 04/18/25 05:58 Pulse 65 04/18/25 05:58 Resp 14 04/18/25 05:58 BP 164/60 H 04/18/25 05:58 Pulse Ox 100 04/18/25 05:58 O2 Del Method Nasal Cannula 04/18/25 05:58 O2 Flow Rate 2 04/18/25 05:58 BMI result Body Mass Index 43.2 Const: General: cooperative, healthy appearing and no acute distress Resp: Effort & Inspection: normal respiratory effort and able to speak in complete sentences Extrem: Other: Right shoulder bandage from aspiration. Unable to tolerate any passive ROM. Able to demonstrate ROM at the elbow hand and wrist. Denies numbness or tingling. Radial pulse intact. Psych: Appearance: grossly normal Mental Status: mental status grossly normal Attitude: cooperative Results Labs 04/18/25 04:22 04/18/25 04:22 Labs: Abnormal lab results 04/17/25 04/17/25 04/18/25 Range/Units 14:27 15:25 04:22 RBC 3.58 L 3.55 L (4.20-5.50) X10*6/uL Hgb 8.6 L 8.5 L (12.0-16.0) g/dl Hct 28.2 L 28.2 L (37.0-47.0) % MCV 78.8 L 79.4 L (80.0-98.0) fL MCH 24.0 L 23.9 L (27.0-33.0) pg MCHC 30.5 L 30.1 L (31.0-35.0) g/dl RDW 20.6 H 20.4 H (11.0-16.0) % Lymph % (Auto) 19.0 L 19.2 L (20-40) % [place] % (Auto) 11.2 H (2-11) % Eos % (Auto) 4.3 H (0-4) % Lymph # (Auto) 1.0 L 1.1 L (1.2-4.9) X10*3/uL ESR 96 H (0-20) MM/HR Chloride 95 L (96-108) mmol/L Carbon Dioxide 36 H 33 H (22-29) mmol/L BUN 30 H 29 H (9-16) mg/dL POC Glucose 336 H (60-115) mg/dL Random Glucose 356 H* 225 H (60-115) mg/dL C-Reactive Protein 8.37 H (< or = 0.50) mg/dL Total Protein 6.3 L (6.5-8.0) g/dL Albumin 2.7 L (3.5-5.0) g/dL 04/18/25 Range/Units 07:36 RBC (4.20-5.50) X10*6/uL Hgb (12.0-16.0) g/dl Hct (37.0-47.0) % MCV (80.0-98.0) fL MCH (27.0-33.0) pg MCHC (31.0-35.0) g/dl RDW (11.0-16.0) % Lymph % (Auto) (20-40) % [place] % (Auto) (2-11) % Eos % (Auto) (0-4) % Lymph # (Auto) (1.2-4.9) X10*3/uL ESR (0-20) MM/HR Chloride (96-108) mmol/L Carbon Dioxide (22-29) mmol/L BUN (9-16) mg/dL POC Glucose 195 H (60-115) mg/dL Random Glucose (60-115) mg/dL C-Reactive Protein (< or = 0.50) mg/dL Total Protein (6.5-8.0) g/dL Albumin (3.5-5.0) g/dL H & H 04/17/25 04/18/25 Range/Units 15:25 04:22 Hgb 8.6 L 8.5 L (12.0-16.0) g/dl Hct 28.2 L 28.2 L (37.0-47.0) % All other labs normal. Assessment and Plan (1) Septic joint of right shoulder region: Status: Acute Plan I discussed the case with Dr. Goldsmith and explained the extent of the injury to the patient and options available which include surgical intervention. Dr. Goldsmith explained the procedure in detail along with the length of recovery and rehab course. Dr. Goldsmith explained the risk, benefits and alternatives. Risk including, but not limited to ongoing infection, blood clots, bleeding, and nerve/tissue damage to surrounding areas. Dr. Goldsmith answered all their questions and with their understanding they have consented to move forward with right shoulder arthroscopic lavage. The patient will remain NPO for OR today. Procedures Date of Service Date of Service: 04/18/25
--- NOTE | 2025-04-18 08:26 | PC.NURSE ---
report given to short stay surgery
--- NOTE | 2025-04-18 08:27 | HO.ANESPROP2 ---
HPI - Anesthesia Eval Consult details Narrative: septic shoulder PMFSH Active Problems Active Problems: All Active Problems Septic joint of right shoulder region (Acute) Septic arthritis (Acute) Chronic shoulder pain (Acute) Acute blood loss anemia (Acute) Acute anemia (Acute) Urinary incontinence (Acute) Systolic murmur (Acute) (HFpEF) heart failure with preserved ejection fraction (Acute) Anemia (Acute) Hypothyroidism (Acute) Closed nondisplaced fracture of left tibial plateau (Acute) Leg abrasion (Acute) Renal failure (Acute) Cellulitis (Acute) Sinus bradycardia (Acute) MDD (major depressive disorder), recurrent episode, moderate (Acute) ANILA (obstructive sleep apnea) (Acute) Asthma (Acute) On amiodarone therapy (Acute) Anticoagulated (Acute) CHF (congestive heart failure) (Acute) Leg edema (Acute) Atrial flutter (Acute) Shortness of breath (Acute) Atrial arrhythmia (Acute) Protein in urine (Acute) Complicated urinary tract infection (Acute) Super obesity (Acute) Urinary incontinence (Acute) Varicose veins of both lower extremities (Acute) Opioid dependence (Acute) Depression with anxiety (Acute) Agoraphobia (Acute) Coronary artery disease (Acute) Cystocele with uterine prolapse (Acute) Type 2 diabetes mellitus with unspecified complications (Acute) Other and unspecified hyperlipidemia (Acute) Essential hypertension (Acute) Atherosclerotic cardiovascular disease (Acute) Urge incontinence (Acute) Urinary frequency (Acute) Urinary urgency (Acute) Past Medical History Medical History Urinary incontinence (HFpEF) heart failure with preserved ejection fraction Anxiety Insomnia CKD (chronic kidney disease) CKD stage 3 due to type 2 diabetes mellitus Leg abrasion Abuse of non-prescription analgesics Type 2 diabetes mellitus with unspecified complications Other and unspecified hyperlipidemia Essential hypertension Atherosclerotic cardiovascular disease Urgency incontinence Osteoporosis Arthritis Asthma Hypertension Fibromyalgia Diabetes mellitus Family History Family history of problems with anesthesia: No Surgical History Surgical History H/O tubal ligation History of hernia repair History of Problems with Anesthesia: No Social History Social History Household Members: Children Household Members Other:: son Housing: Apartment Are you a primary pet care associate to a significant other at home: No Do you presently have visiting nurse or other home services: No Unable to assess alcohol history related to: Unknown Alcohol intake: never 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 Patient Tobacco Use Status: Never used Tobacco Smoked in Last 30 Days: No e-Cigarette/Vaping Use: Never Used Use of substances other than those prescribed or required for medical reasons: No Advance Directives: Yes Advance Directives on File: Yes Advance Directives Date on File: 04/07/24 Do you have a plan to hurt others: No Plan Nutrition Risks: No Nutritional Risk service: No Sexual orientation: Straight/Heterosexual Meds Allergies Allergy/AdvReac Type Severity Reaction Status Date / Time codeine (CODEINE) Allergy Intermediate HALLUCINATI Verified 04/17/25 14:25 ONS Active Medications: Current Medications Acetaminophen (Acetaminophen 325 Mg Tablet) 650 mg PO Q6H PRN PRN Reason: Pain, Mild 1-3,fever,headache Calcium Carbonate (Calcium Carbonate 750 Mg Tab.Chew) 750 mg PO Q4H PRN PRN Reason: Heartburn Dextrose (Dextrose 50 % 25 Gm/50 Ml Syringe) 25 gm IVPUSH Q15M PRN; Protocol PRN Reason: per Hypoglycemia Standing Ord. Enoxaparin Sodium (Enoxaparin Sodium 40 Mg/0.4 Ml Syringe) 40 mg SUBCUT Q24H JULIANNE On Hold: 04/17/25 23:30 Last Admin: 04/18/25 00:40 Dose: Not Given Gabapentin (Gabapentin 300 Mg Capsule) 300 mg PO BID JULIANNE Glucose (Glucose Gel 15 Gm Gel..Gram.) 15 gm PO Q15M PRN; Protocol PRN Reason: per Hypoglycemia Standing Ord. Hydromorphone HCl (Hydromorphone Hcl 0.5 Mg/0.5 Ml Syringe) 0.5 mg IVPUSH Q4H PRN; Protocol PRN Reason: Pain, Severe (Pain Scale 7-10) Insulin Glargine (Insulin Glargine,Hum.Rec.Anlog 100 Unit/Ml 10 Ml Vial) 20 unit SUBCUT BEDTIME JULIANNE Insulin Human Lispro (Insulin Lispro 100 Unit/Ml 3 Ml Vial) 0 unit SUBCUT QIDACHS [facility]; Protocol Last Admin: 04/18/25 07:51 Dose: 2 unit Levothyroxine Sodium (Levothyroxine Sodium 100 Mcg Tablet) 100 mcg PO DAILY@0600 [facility] Last Admin: 04/18/25 06:00 Dose: 100 mcg Magnesium Hydroxide (Milk Of Magnesia 30 Ml Oral.Susp) 30 ml PO DAILY PRN PRN Reason: Constipation Melatonin (Melatonin 3 Mg Tablet) 6 mg PO BEDTIME PRN PRN Reason: Insomnia Sodium Chloride (0.9 % Sodium Chloride Flush 3 Ml Syringe) 3 ml IVFLUSH QSHIFT [facility] Last Admin: 04/18/25 07:49 Dose: 3 ml Home Medications ?Medication ?Instructions ?Recorded ?Confirmed ?Last Taken ?Type atorvastatin 80 mg tablet 80 mg PO BEDTIME 04/07/21 03/22/25 10/05/24 History duloxetine 20 mg capsule,delayed 20 mg PO DAILY 03/18/24 03/22/25 04/05/24 History release omeprazole 40 mg capsule,delayed 40 mg PO DAILY@0630 03/18/24 03/22/25 10/06/24 History release ketotifen fumarate 0.025 % (0.035 1 drp ophthalmic (eye) Q12H PRN 10/06/24 03/22/25 Unknown History %) eye drops (Eye Itch Relief) Eye Irritation trazodone 150 mg tablet 150 mg PO BEDTIME 10/06/24 03/22/25 10/05/24 History calcium carbonate (Oyster Shell 500 mg PO BID 12/06/24 03/22/25 Unknown History Calcium 500) hydroxyzine HCl 25 mg tablet 25 mg PO Q8H PRN anxiety 12/06/24 03/22/25 Unknown History albuterol sulfate 2.5 mg/3 mL 2.5 mg inhalation Q6H PRN 03/04/25 03/22/25 Unknown History (0.083 %) solution for nebulization Shortness Of Breath Or Wheezing albuterol sulfate 90 mcg/actuation 2 puff inhalation QID PRN 03/04/25 03/22/25 Unknown History aerosol inhaler Shortness Of Breath Or Wheezing bacitracin 500 unit/gram topical 1 appl topical BID 03/04/25 03/22/25 Unknown History ointment dulaglutide 3 mg/0.5 mL 3 mg subcut FR 03/04/25 03/22/25 Unknown History subcutaneous pen injector (Trulicity) gabapentin 300 mg capsule 300 mg PO BID 03/04/25 03/22/25 Unknown History aspirin 81 mg tablet,delayed 81 mg PO QAM 04/18/25 Unknown History release cyclobenzaprine 5 mg tablet 5 mg PO TID 04/18/25 Unknown History docusate sodium 100 mg capsule 100 mg PO BID 04/18/25 Unknown History insulin degludec 200 unit/mL (3 64 unit subcut DAILY 04/18/25 Unknown History mL) subcutaneous pen (Tresiba FlexTouch U-200 insulin) melatonin 5 mg tablet 5 mg PO BEDTIME 04/18/25 Unknown History tirzepatide 5 mg/0.5 mL 5 mg subcut QWEEK 04/18/25 Unknown History subcutaneous pen injector (Mounjaro) Exam Height,Weight and Vital Signs: Height 5 ft 1 in Weight 103.6 kg Last Vital Signs Temp 98.3 F 04/18/25 05:58 Pulse 65 04/18/25 05:58 Resp 14 04/18/25 05:58 BP 164/60 H 04/18/25 05:58 Pulse Ox 100 04/18/25 05:58 O2 Del Method Nasal Cannula 04/18/25 05:58 O2 Flow Rate 2 04/18/25 05:58 Pertinent Lab Results Pertinent Lab Results: Laboratory Tests 04/17/25 04/17/25 04/17/25 14:27 15:25 22:07 WBC 5.5 RBC 3.58 L Hgb 8.6 L Hct 28.2 L MCV 78.8 L MCH 24.0 L MCHC 30.5 L RDW 20.6 H Plt Count 270 MPV 9.7 Immature Gran % (Auto) 0.2 Neut % (Auto) 67.1 Lymph % (Auto) 19.0 L [place] % (Auto) 9.9 Eos % (Auto) 3.1 Baso % (Auto) 0.7 Lymph # (Auto) 1.0 L [place] # (Auto) 0.5 Eos # (Auto) 0.2 Baso # (Auto) 0.0 Abs Immat Gran (auto) 0.01 Absolute Neuts (auto) 3.7 Absolute Nucleated RBC 0.000 Nucleated RBC % (auto) 0.0 ESR 96 H Sodium 138 Potassium 4.6 Chloride 95 L Carbon Dioxide 36 H Anion Gap 12 BUN 30 H Creatinine 1.30 Estim Creat Clear Calc 41.3 Estimated GFR 40 POC Glucose 336 H Random Glucose 356 H* Lactic Acid 1.0 Calcium 8.8 D Total Bilirubin AST ALT Alkaline Phosphatase C-Reactive Protein 8.37 H Total Protein Albumin Synovial Source Synovial WBC Synovial RBC Synovial Neutrophils Synovial Lymphocytes Synovial Monocytes 04/18/25 04/18/25 04/18/25 00:26 04:22 07:36 WBC 5.6 RBC 3.55 L Hgb 8.5 L Hct 28.2 L MCV 79.4 L MCH 23.9 L MCHC 30.1 L RDW 20.4 H Plt Count 270 MPV 10.3 Immature Gran % (Auto) 0.2 Neut % (Auto) 64.2 Lymph % (Auto) 19.2 L [place] % (Auto) 11.2 H Eos % (Auto) 4.3 H Baso % (Auto) 0.9 Lymph # (Auto) 1.1 L [place] # (Auto) 0.6 Eos # (Auto) 0.2 Baso # (Auto) 0.1 Abs Immat Gran (auto) 0.01 Absolute Neuts (auto) 3.6 Absolute Nucleated RBC 0.000 Nucleated RBC % (auto) 0.0 ESR Sodium 139 Potassium 4.5 Chloride 97 Carbon Dioxide 33 H Anion Gap 14 BUN 29 H Creatinine 1.18 Estim Creat Clear Calc 45.6 Estimated GFR 45 POC Glucose 195 H Random Glucose 225 H Lactic Acid Calcium 8.6 Total Bilirubin 0.2 AST 13 ALT < 6 Alkaline Phosphatase 54 C-Reactive Protein Total Protein 6.3 L Albumin 2.7 L Synovial Source right shoulder Synovial WBC 91.908 Synovial RBC 0.105 Synovial Neutrophils 80 Synovial Lymphocytes 9 Synovial Monocytes 11 Airway Mallampati Class: III TM Dist: <=3cm Neck ROM: Limited Heart: rrr Lungs: cta Assessment and Plan Assessment Anesthesia Assessment: Anesthesia Plan Discussed and Chart Reviewed Final Anesthetic Review Family History of Problems with Anesthesia: No History of Problems with Anesthesia: No NPO: Yes ASA Class: III Final Preanesthetic Review: No Changes in Pt Med Stat, Meds/Allgs Chart Reviewed, Consent Obtained/Reviewed and Anes Risks/Benef Reviewed Patient Risk: Intermediate Procedure Risk: Intermediate Anesthetic Plan Anesthetic Plan: GA and Agree w/ Assess. and Plan Disposition: Standard PACU
--- NOTE | 2025-04-18 08:31 | HO.ANESPROP2 ---
HPI - Anesthesia Eval Consult details Narrative: 74 yr old female for right shoulder arthroscopy washout Pt's daughter who also speaks Swedish administer pt all of her meds Anesthesia Pre-Procedure Meds Is the patient on any of the following meds?: GLP1/DPP4 and SGLT2 Inhib PMFSH Active Problems Active Problems: All Active Problems Septic joint of right shoulder region (Acute) Septic arthritis (Acute) Chronic shoulder pain (Acute) Acute blood loss anemia (Acute) Acute anemia (Acute) Urinary incontinence (Acute) Systolic murmur (Acute) (HFpEF) heart failure with preserved ejection fraction (Acute) Anemia (Acute) Hypothyroidism (Acute) Closed nondisplaced fracture of left tibial plateau (Acute) Leg abrasion (Acute) Renal failure (Acute) Cellulitis (Acute) Sinus bradycardia (Acute) MDD (major depressive disorder), recurrent episode, moderate (Acute) ANILA (obstructive sleep apnea) (Acute) Asthma (Acute) On amiodarone therapy (Acute) Anticoagulated (Acute) CHF (congestive heart failure) (Acute) Leg edema (Acute) Atrial flutter (Acute) Shortness of breath (Acute) Atrial arrhythmia (Acute) Protein in urine (Acute) Complicated urinary tract infection (Acute) Super obesity (Acute) Urinary incontinence (Acute) Varicose veins of both lower extremities (Acute) Opioid dependence (Acute) Depression with anxiety (Acute) Agoraphobia (Acute) Coronary artery disease (Acute) Cystocele with uterine prolapse (Acute) Type 2 diabetes mellitus with unspecified complications (Acute) Other and unspecified hyperlipidemia (Acute) Essential hypertension (Acute) Atherosclerotic cardiovascular disease (Acute) Urge incontinence (Acute) Urinary frequency (Acute) Urinary urgency (Acute) Past Medical History Medical History Urinary incontinence (HFpEF) heart failure with preserved ejection fraction Anxiety Insomnia CKD (chronic kidney disease) CKD stage 3 due to type 2 diabetes mellitus Leg abrasion Abuse of non-prescription analgesics Type 2 diabetes mellitus with unspecified complications Other and unspecified hyperlipidemia Essential hypertension Atherosclerotic cardiovascular disease Urgency incontinence Osteoporosis Arthritis Asthma Hypertension Fibromyalgia Diabetes mellitus Family History Family history of problems with anesthesia: No Surgical History Surgical History H/O tubal ligation History of hernia repair History of Problems with Anesthesia: No Social History Social History Household Members: Children Household Members Other:: son Housing: Apartment Are you a primary critical care clinical nurse specialist to a significant other at home: No Do you presently have visiting nurse or other home services: No Unable to assess alcohol history related to: Unknown Alcohol intake: never 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 Patient Tobacco Use Status: Never used Tobacco e-Cigarette/Vaping Use: Never Used Advance Directives Date on File: 04/07/24 service: No Sexual orientation: Straight/Heterosexual Meds Allergies Allergy/AdvReac Type Severity Reaction Status Date / Time codeine (CODEINE) Allergy Intermediate HALLUCINATI Verified 04/27/25 12:59 ONS Active Medications: Current Medications Acetaminophen (Acetaminophen 325 Mg Tablet) 650 mg PO Q6H PRN PRN Reason: Pain, Mild 1-3,fever,headache Calcium Carbonate (Calcium Carbonate 750 Mg Tab.Chew) 750 mg PO Q4H PRN PRN Reason: Heartburn Dextrose (Dextrose 50 % 25 Gm/50 Ml Syringe) 25 gm IVPUSH Q15M PRN; Protocol PRN Reason: per Hypoglycemia Standing Ord. Enoxaparin Sodium (Enoxaparin Sodium 40 Mg/0.4 Ml Syringe) 40 mg SUBCUT Q24H [facility] On Hold: 04/17/25 23:30 Last Admin: 04/18/25 00:40 Dose: Not Given Gabapentin (Gabapentin 300 Mg Capsule) 300 mg PO BID [facility] Glucose (Glucose Gel 15 Gm Gel..Gram.) 15 gm PO Q15M PRN; Protocol PRN Reason: per Hypoglycemia Standing Ord. Haloperidol Lactate (Haloperidol Lactate 5 Mg/Ml Vial) 1 mg IVPUSH ONCE PRN PRN Reason: intractable nausea Stop: 04/18/25 14:29 Hydromorphone HCl (Hydromorphone Hcl 0.5 Mg/0.5 Ml Syringe) 0.5 mg IVPUSH Q4H PRN; Protocol PRN Reason: Pain, Severe (Pain Scale 7-10) Hydromorphone HCl (Hydromorphone Hcl 0.5 Mg/0.5 Ml Syringe) 0.25 mg IVPUSH Q5M PRN PRN Reason: Pain, Moderate to Severe (Pain Scale 4-10) Stop: 04/18/25 14:29 Insulin Glargine (Insulin Glargine,Hum.Rec.Anlog 100 Unit/Ml 10 Ml Vial) 20 unit SUBCUT BEDTIME [facility] Insulin Human Lispro (Insulin Lispro 100 Unit/Ml 3 Ml Vial) 0 unit SUBCUT QIDACHS [facility]; Protocol Last Admin: 04/18/25 07:51 Dose: 2 unit Levothyroxine Sodium (Levothyroxine Sodium 100 Mcg Tablet) 100 mcg PO DAILY@0600 [facility] Last Admin: 04/18/25 06:00 Dose: 100 mcg Magnesium Hydroxide (Milk Of Magnesia 30 Ml Oral.Susp) 30 ml PO DAILY PRN PRN Reason: Constipation Melatonin (Melatonin 3 Mg Tablet) 6 mg PO BEDTIME PRN PRN Reason: Insomnia Naloxone HCl (Naloxone Hcl 0.4 Mg/Ml Vial) 0.04 mg IVPUSH Q5M PRN PRN Reason: Excessive sedation or RR < 8 Ondansetron HCl (Ondansetron Hcl 4 Mg/2 Ml Vial) 4 mg IVPUSH ONCE PRN PRN Reason: Nausea and Vomiting Stop: 04/18/25 14:29 Sodium Chloride (0.9 % Sodium Chloride Flush 3 Ml Syringe) [facility] Last Admin: 04/18/25 07:49 Dose: 3 ml Home Medications ?Medication ?Instructions ?Recorded ?Confirmed ?Last Taken ?Type atorvastatin 80 mg tablet 80 mg PO BEDTIME 04/07/21 04/18/25 10/05/24 History duloxetine 20 mg capsule,delayed 20 mg PO DAILY 03/18/24 04/18/25 04/05/24 History release omeprazole 40 mg capsule,delayed 40 mg PO DAILY@0630 03/18/24 04/18/25 10/06/24 History release trazodone 150 mg tablet 150 mg PO BEDTIME 10/06/24 04/18/25 10/05/24 History calcium carbonate (Oyster Shell 500 mg PO BID 12/06/24 04/18/25 Unknown History Calcium 500) hydroxyzine HCl 25 mg tablet 25 mg PO Q8H PRN anxiety 12/06/24 04/18/25 Unknown History albuterol sulfate 2.5 mg/3 mL 2.5 mg inhalation Q6H PRN 03/04/25 04/18/25 Unknown History (0.083 %) solution for nebulization Shortness Of Breath Or Wheezing albuterol sulfate 90 mcg/actuation 2 puff inhalation QID PRN 03/04/25 04/18/25 Unknown History aerosol inhaler Shortness Of Breath Or Wheezing gabapentin 300 mg capsule 300 mg PO BID 03/04/25 04/18/25 Unknown History aspirin 81 mg tablet,delayed 81 mg PO QAM 04/18/25 04/18/25 04/04/25 History release cyclobenzaprine 5 mg tablet 5 mg PO TID 04/18/25 04/18/25 Unknown History docusate sodium 100 mg capsule 100 mg PO BID 04/18/25 04/18/25 Unknown History insulin degludec 200 unit/mL (3 67 unit subcut DAILY 04/18/25 04/18/25 Unknown History mL) subcutaneous pen (Tresiba FlexTouch U-200 insulin) melatonin 5 mg tablet 5 mg PO BEDTIME 04/18/25 04/18/25 Unknown History tirzepatide 5 mg/0.5 mL 5 mg subcut FR 04/18/25 04/18/25 04/13/25 History subcutaneous pen injector (Mounjaro) Exam Height,Weight and Vital Signs: Height 5 ft 1 in Weight 103.6 kg Last Vital Signs Temp 98.3 F 04/18/25 05:58 Pulse 65 04/18/25 05:58 Resp 14 04/18/25 05:58 BP 164/60 H 04/18/25 05:58 Pulse Ox 100 04/18/25 05:58 O2 Del Method Nasal Cannula 04/18/25 05:58 O2 Flow Rate 2 04/18/25 05:58 Pertinent Lab Results Pertinent Lab Results: Laboratory Tests 04/17/25 04/17/25 04/17/25 14:27 15:25 22:07 WBC 5.5 RBC 3.58 L Hgb 8.6 L Hct 28.2 L MCV 78.8 L MCH 24.0 L MCHC 30.5 L RDW 20.6 H Plt Count 270 MPV 9.7 Immature Gran % (Auto) 0.2 Neut % (Auto) 67.1 Lymph % (Auto) 19.0 L [place] % (Auto) 9.9 Eos % (Auto) 3.1 Baso % (Auto) 0.7 Lymph # (Auto) 1.0 L [place] # (Auto) 0.5 Eos # (Auto) 0.2 Baso # (Auto) 0.0 Abs Immat Gran (auto) 0.01 Absolute Neuts (auto) 3.7 Absolute Nucleated RBC 0.000 Nucleated RBC % (auto) 0.0 ESR 96 H Sodium 138 Potassium 4.6 Chloride 95 L Carbon Dioxide 36 H Anion Gap 12 BUN 30 H Creatinine 1.30 Estim Creat Clear Calc 41.3 Estimated GFR 40 POC Glucose 336 H Random Glucose 356 H* Lactic Acid 1.0 Calcium 8.8 D Total Bilirubin AST ALT Alkaline Phosphatase C-Reactive Protein 8.37 H Total Protein Albumin Synovial Source Synovial WBC Synovial RBC Synovial Neutrophils Synovial Lymphocytes Synovial Monocytes 04/18/25 04/18/25 04/18/25 00:26 04:22 07:36 WBC 5.6 RBC 3.55 L Hgb 8.5 L Hct 28.2 L MCV 79.4 L MCH 23.9 L MCHC 30.1 L RDW 20.4 H Plt Count 270 MPV 10.3 Immature Gran % (Auto) 0.2 Neut % (Auto) 64.2 Lymph % (Auto) 19.2 L [place] % (Auto) 11.2 H Eos % (Auto) 4.3 H Baso % (Auto) 0.9 Lymph # (Auto) 1.1 L [place] # (Auto) 0.6 Eos # (Auto) 0.2 Baso # (Auto) 0.1 Abs Immat Gran (auto) 0.01 Absolute Neuts (auto) 3.6 Absolute Nucleated RBC 0.000 Nucleated RBC % (auto) 0.0 ESR Sodium 139 Potassium 4.5 Chloride 97 Carbon Dioxide 33 H Anion Gap 14 BUN 29 H Creatinine 1.18 Estim Creat Clear Calc 45.6 Estimated GFR 45 POC Glucose 195 H Random Glucose 225 H Lactic Acid Calcium 8.6 Total Bilirubin 0.2 AST 13 ALT < 6 Alkaline Phosphatase 54 C-Reactive Protein Total Protein 6.3 L Albumin 2.7 L Synovial Source right shoulder Synovial WBC 91.908 Synovial RBC 0.105 Synovial Neutrophils 80 Synovial Lymphocytes 9 Synovial Monocytes 11 Narrative Narrative: EKG 04/13/25 Vent. Rate : 64 BPM Atrial Rate : 64 BPM P-R Int : 162 ms QRS Dur : 88 ms QT Int : 406 ms P-R-T Axes : 35 -24 29 degrees QTcB Int : 418 ms Normal sinus rhythm Normal ECG When compared with ECG of 11-Mar-2025 07:02, Premature atrial complexes are no longer Present ECHO 06/2024 Conclusions: - 1. Technically limited study due to body habitus as well as patient terminated they exam 2. Normal LV ejection fraction 55-60% with mild LVH with grade 2 diastolic dysfunction Assessment and Plan Final Anesthetic Review Family History of Problems with Anesthesia: No History of Problems with Anesthesia: No
--- NOTE | 2025-04-18 08:32 | PC.NURSE ---
Pt changed over by this RN for surgery at this time, all belongings placed on bed, purse, shoes, and shirt/ scarf
--- NOTE | 2025-04-18 08:47 | PC.NURSE ---
Spoke with patient's son Anatoliy and interpreter translator (ID [id number]) to verify and confirm patients medications. List updated in [place] as to what Anatoliy was able to tell me.
--- NOTE | 2025-04-18 08:51 | PC.NURSE ---
last dose asa 04/04 eliquis 04/17, [place]/ everyone aware
[2025-04-18] MEDS: Albuterol Sulfate (0.083%) 2.5 MG/3 ML VIAL.NEB INHALE (09:32)
--- NOTE | 2025-04-18 09:51 | PC.NURSE ---
dr estrella aware last dosage okay to proceed right shoulder infection dr odom aware also
--- NOTE | 2025-04-18 09:52 | PC.NURSE ---
after resp tx pt moving ir better ls clear and diminshed at the bases nonproductive cough denies fever
--- NOTE | 2025-04-18 10:03 | PC.NURSE ---
iv on right side patent operative side several attempts for new iv and with ultrasound unsuccessful surgeron and anesthesia aware pt resting comfortably a/ox3 denies pain at this times
[2025-04-18 10:04] LABS: Glucose, Whole Blood 189 mg/dL (60-115)
--- NOTE | 2025-04-18 10:15 | MHC.SHP ---
Pre-Procedural Eval Section A - 24 Hr Update-Section A only Date of Service: 04/18/25 The patient is an INPATIENT: Yes Changes since office visit: No Cold of Flu in the past 2 weeks, No New Medical Problems, No Changes in Medication and No Patient answered all questions The patient has been examined within 24 hours of the surgical procedure. The History & Physical has been completed within 30 days and I have reviewed it.: Yes Section B - Complete if H&P > 30 days Chief Complaint: Rt septic shoulder Allergies: Allergies Allergy/AdvReac Type Severity Reaction Status Date / Time codeine (CODEINE) Allergy Intermediate HALLUCINATI Verified 04/17/25 14:25 ONS Plan I have reviewed the history and physical and performed a pertinent physical examination on my patient. No changes have occurred unless specified. Time Spent With Patient Time: Total time managing care of this patient today ____ minutes.
--- NOTE | 2025-04-18 11:14 | PM.OP ---
Brief Operative Note Date of Service: 04/18/25 Pre-op diagnosis: Right shoulder fluid collection Post-op diagnosis: same Procedure: Arthroscopic debridement and lavage right shoulder Implants: none Surgeon: Carter Goldsmith MD Anesthesia: GETA and local Was an [employer] Consultant used for this Procedure?: Yes [employer] Consultant: Tamiko Edwards Estimated blood loss (mL): 5 IV fluids (mL): 500 Pathology: none sent Condition: stable Disposition: PACU
--- NOTE | 2025-04-18 11:38 | PHA.MEDREC ---
Addendum entered by Ashlyn Briggs RPh 04/18/25 14:30: MED REC REVIEWED BY [facility] (Aspirin was not in the med list faxed from [facility] but was in [facility] electronic list of claims that we see) Original Note: Pharmacy Consult ? Medication Reconciliation Pharmacy has completed the medication reconciliation. Spoke with pt, utilizing translator interpreter (Terence), and pt poor historian and only able to confirm 4 medications (Trazodone, Albuterol inhaler and Nebulizer and Amlodipine) before passing out on us mid sentence. I called pt son/HCP and he confirmed the pt takes 67 units of Tresiba daily and pt mounjaro taken on Fridays and she took it last 04/13 and he claims pt takes Eliquis once daily but son doesn't help with her night meds and he doesn't know for sure. When I started reading down the list he stated a nurse had called him and he gave her a rundown of the pt medications; spoke with pt nurse who spoke with son and she states she only got last taken for Baby Aspirin, Eliquis and Mounjaro and no run down of meds. I called and got a list from [facility] ([facility]) and utilized our pharmacy claims and list from [facility] to confirm med rec.
[2025-04-18 13:06] LABS: Glucose, Whole Blood 282 mg/dL (60-115)
--- NOTE | 2025-04-18 14:06 | HO.PM.IMPN ---
Subjective Subjective Date of Service: 04/18/25 Review of Systems Follow up septic joint consultation Physical Exam Exam: Exam: Appearing in no acute distress lung sounds are clear to auscultation heart regular rate rhythm, clear S1, S2 positive bowel sounds, abdomen is soft, nontender neuro patient is alert x3, no focal deficits Vital Signs: Vital Signs: Last Vital Signs Temp 97.1 F 04/18/25 12:57 Pulse 72 04/18/25 12:57 Resp 18 04/18/25 12:57 BP 130/55 L 04/18/25 12:57 Pulse Ox 98 04/18/25 12:57 O2 Del Method Nasal Cannula 04/18/25 12:57 O2 Flow Rate 2 04/18/25 12:57 BMI result Body Mass Index 43.2 Objective Data Active Medications Acetaminophen (Acetaminophen 325 Mg Tablet) 650 mg PO Q6H PRN PRN Reason: Pain, Mild 1-3,fever,headache Last Admin: 04/18/25 13:59 Dose: 650 mg Documented By: MEDARDO Albuterol Sulfate (Albuterol Sulfate (0.083%) 2.5 Mg/3 Ml Vial.Neb) 2.5 mg INHALE Q6H PRN PRN Reason: Shortness Of Breath Or Wheezing Albuterol Sulfate (Albuterol Sulfate 90 Mcg 8 Gm Inhaler) 2 puff INHALE QID PRN PRN Reason: Shortness Of Breath Or Wheezing Amlodipine Besylate (Amlodipine Besylate 5 Mg Tablet) 5 mg PO DAILY [facility]; Protocol Apixaban (Apixaban 5 Mg Tablet) 5 mg PO BID [facility] Aspirin (Aspirin Enteric Coated 81 Mg Tablet.Dr) 81 mg PO DAILY [facility] Benzocaine (Throat Lozenge, Medicated Lozenge) 1 lozenge MUCOUS MEM Q2H PRN PRN Reason: Sore Throat Calcium Carbonate (Calcium Carbonate 750 Mg Tab.Chew) 750 mg PO Q4H PRN PRN Reason: Heartburn Calcium Carbonate (Calcium Oyster Shell Elemental 500 Mg Tablet) 500 mg PO BID [facility] Cyclobenzaprine HCl (Cyclobenzaprine Hcl 5 Mg Tablet) 5 mg PO TID [facility] Last Admin: 04/18/25 13:59 Dose: 5 mg Documented By: MEDARDO Dextrose (Dextrose 50 % 25 Gm/50 Ml Syringe) 25 gm IVPUSH Q15M PRN; Protocol PRN Reason: per Hypoglycemia Standing Ord. Docusate Sodium (Docusate Sodium 100 Mg Capsule) 100 mg PO BID [facility] Duloxetine HCl (Duloxetine Hcl 20 Mg Capsule.) 20 mg PO DAILY [facility] Enoxaparin Sodium (Enoxaparin Sodium 40 Mg/0.4 Ml Syringe) 40 mg SUBCUT Q24H [facility] On Hold: 04/17/25 23:30 Last Admin: 04/18/25 00:40 Dose: Not Given Documented By: ROSALVA Non-Admin Reason: Physician Held Med Ferrous Sulfate (Ferrous Sulfate 324 Mg Tablet.) 324 mg PO DAILY [facility] Gabapentin (Gabapentin 300 Mg Capsule) 300 mg PO BID [facility] Glucose (Glucose Gel 15 Gm Gel..Gram.) 15 gm PO Q15M PRN; Protocol PRN Reason: per Hypoglycemia Standing Ord. Hydromorphone HCl (Hydromorphone Hcl 0.5 Mg/0.5 Ml Syringe) 0.5 mg IVPUSH Q4H PRN; Protocol PRN Reason: Pain, Severe (Pain Scale 7-10) Hydroxyzine HCl (Hydroxyzine Hcl 25 Mg Tablet) 25 mg PO Q8H PRN PRN Reason: Anxiety Last Admin: 04/18/25 13:59 Dose: 25 mg Documented By: MEDARDO Insulin Glargine (Insulin Glargine,Hum.Rec.Anlog 100 Unit/Ml 10 Ml Vial) 20 unit SUBCUT BEDTIME [facility] Insulin Glargine (Insulin Glargine,Hum.Rec.Anlog 100 Unit/Ml 10 Ml Vial) 47 unit SUBCUT DAILY [facility] Insulin Human Lispro (Insulin Lispro 100 Unit/Ml 3 Ml Vial) 0 unit SUBCUT QIDACHS [facility]; Protocol Last Admin: 04/18/25 13:15 Dose: 6 unit Documented By: REESE Levothyroxine Sodium (Levothyroxine Sodium 100 Mcg Tablet) 100 mcg PO DAILY@0600 [facility] Magnesium Hydroxide (Milk Of Magnesia 30 Ml Oral.Susp) 30 ml PO DAILY PRN PRN Reason: Constipation Melatonin (Melatonin 3 Mg Tablet) 6 mg PO BEDTIME PRN PRN Reason: Insomnia Omeprazole (Omeprazole 40 Mg Capsule.) 40 mg PO DAILY@0630 [facility] Sodium Chloride (0.9 % Sodium Chloride Flush 3 Ml Syringe) 3 ml IVFLUSH QSHIFT [facility] Last Admin: 04/18/25 07:49 Dose: 3 ml Documented By: JANUSZ Torsemide (Torsemide 20 Mg Tablet) 20 mg PO DAILY [facility]; Protocol Trazodone HCl (Trazodone Hcl 50 Mg Tablet) 150 mg PO BEDTIME [facility] Labs 04/18/25 04:22 04/18/25 04:22 Labs: Laboratory Results - last 24 hr 04/17/25 04/17/25 04/17/25 14:27 15:25 22:07 MCV 78.8 L MCH 24.0 L MCHC 30.5 L RDW 20.6 H Plt Count 270 MPV 9.7 Immature Gran % (Auto) 0.2 Neut % (Auto) 67.1 Lymph % (Auto) 19.0 L [place] % (Auto) 9.9 Eos % (Auto) 3.1 Baso % (Auto) 0.7 Lymph # (Auto) 1.0 L [place] # (Auto) 0.5 Eos # (Auto) 0.2 Baso # (Auto) 0.0 Abs Immat Gran (auto) 0.01 Absolute Neuts (auto) 3.7 Absolute Nucleated RBC 0.000 Nucleated RBC % (auto) 0.0 ESR 96 H Anion Gap 12 Estim Creat Clear Calc 41.3 Estimated GFR 40 POC Glucose 336 H Random Glucose 356 H* Lactic Acid 1.0 Calcium 8.8 D Total Bilirubin AST ALT Alkaline Phosphatase C-Reactive Protein 8.37 H Total Protein Albumin Synovial Source Synovial WBC Synovial RBC Synovial Neutrophils Synovial Lymphocytes Synovial Monocytes 04/18/25 04/18/25 04/18/25 00:26 04:22 07:36 MCV 79.4 L MCH 23.9 L MCHC 30.1 L RDW 20.4 H Plt Count 270 MPV 10.3 Immature Gran % (Auto) 0.2 Neut % (Auto) 64.2 Lymph % (Auto) 19.2 L [place] % (Auto) 11.2 H Eos % (Auto) 4.3 H Baso % (Auto) 0.9 Lymph # (Auto) 1.1 L [place] # (Auto) 0.6 Eos # (Auto) 0.2 Baso # (Auto) 0.1 Abs Immat Gran (auto) 0.01 Absolute Neuts (auto) 3.6 Absolute Nucleated RBC 0.000 Nucleated RBC % (auto) 0.0 ESR Anion Gap 14 Estim Creat Clear Calc 45.6 Estimated GFR 45 POC Glucose 195 H Random Glucose 225 H Lactic Acid Calcium 8.6 Total Bilirubin 0.2 AST 13 ALT < 6 Alkaline Phosphatase 54 C-Reactive Protein Total Protein 6.3 L Albumin 2.7 L Synovial Source right shoulder Synovial WBC 91.908 Synovial RBC 0.105 Synovial Neutrophils 80 Synovial Lymphocytes 9 Synovial Monocytes 11 04/18/25 04/18/25 10:00 13:03 MCV MCH MCHC RDW Plt Count MPV Immature Gran % (Auto) Neut % (Auto) Lymph % (Auto) [place] % (Auto) Eos % (Auto) Baso % (Auto) Lymph # (Auto) [place] # (Auto) Eos # (Auto) Baso # (Auto) Abs Immat Gran (auto) Absolute Neuts (auto) Absolute Nucleated RBC Nucleated RBC % (auto) ESR Anion Gap Estim Creat Clear Calc Estimated GFR POC Glucose 189 H 282 H Random Glucose Lactic Acid Calcium Total Bilirubin AST ALT Alkaline Phosphatase C-Reactive Protein Total Protein Albumin Synovial Source Synovial WBC Synovial RBC Synovial Neutrophils Synovial Lymphocytes Synovial Monocytes Microbiology Microbiology Results: Microbiology 04/18/25 00:26 Gram Stain - Final Shoulder - Right Side Assessment and Plan (1) Septic arthritis: Status: Acute Plan 74 year old women admitted by orthopedics for ?R shoulder septic arthritis. CT R shoulder with large amount of gas and fluid within the subdeltoid space suggesting infection with a gas-forming organism. Lytic change at the acromioclavicular joint suggesting a septic joint. pt reported woresning R shoulder pain for the past month. no numbness or weakness. hx of joint aspirations and injections. home pain management not working with gabapentin and oxycodone. No fever, chest pain, shortness of breath, nausea or vomiting. No recent trauma. No rash. She was seen twice in March for the same symptoms with negative x-rays. Right shoulder pain/septic arthritis received vancomycin and ceftriaxone in ED Status post arthroscopic debridement and lavage of right shoulder secondary to septic joint hypothyroid continue levothyroxine HFpEF, no acute exacerbation hold torsemide x 24 hours due to possible septic joint Type 2 diabetes sliding scale insulin as needed Lantus nightly hold Trulicity Anemia, chronic and stable stable HH no need for blood transfusion at this time CKD3B cr at baseline avoid nephrotoxins when possible chronic a fib eliquis after ortho procedure continue rate control morbid obesity BMI 43.2 Discussed importance of weight management as this may be contributing to worsening of other comorbidities DVT prophylaxis with Eliquis Full code Medical consultation complete. Will sign off Quality Stroke Does the patient have a stroke diagnosis?: No VTE Prior VTE?: No VTE Risk Level:: Medical - moderate - high VTE Device Contraindication: Treatment Not Indicated VTE Drug Contraindication: N/A - Med Ordered
[2025-04-18] MEDS: Aspirin Enteric Coated 81 MG TABLET.DR PO (14:07)
--- NOTE | 2025-04-18 14:54 | MHC.CM.PN ---
pt lives with son he is her first coat operator pt has vna thru comfort care plus she has her own ride home dc plan home w/sefvices
[2025-04-18 16:07] LABS: Glucose, Whole Blood 368 mg/dL (60-115)
[2025-04-18] MEDS: Throat Lozenge, Medicated LOZENGE 1 LOZENGE MUCOUS MEM (16:08)
[2025-04-18 20:03] LABS: Glucose, Whole Blood 355 mg/dL (60-115)
[2025-04-18] MEDS: Calcium Oyster Shell Elemental 500 MG TABLET PO (20:16)
[2025-04-18] MEDS: Insulin Glargine,Hum.rec.anlog 100 UNIT/ML 10 ML VIAL 20 UNIT SUBCUT (20:17)
[2025-04-19 03:40] VITALS: BP 150/62; PULSE 63; RESP 18; TEMP 36.1; O2SAT 98
[2025-04-19] MEDS: 0.9 % Sodium Chloride Flush 3 ML SYRINGE IVFLUSH ×3 (07:11→19:58)
[2025-04-19 07:43] LABS: Glucose, Whole Blood 274 mg/dL (60-115)
[2025-04-19 07:47] VITALS: BP 132/62; PULSE 54; RESP 18; TEMP 36.3; O2SAT 100
[2025-04-19] MEDS: Calcium Oyster Shell Elemental 500 MG TABLET PO ×2 (07:53→19:56)
[2025-04-19] MEDS: Ferrous Sulfate 324 MG TABLET.DR PO (07:53)
[2025-04-19] MEDS: Aspirin Enteric Coated 81 MG TABLET.DR PO (07:53)
--- NOTE | 2025-04-19 09:17 | PM.PNORT ---
Subjective Subjective Date of Service: 04/19/25 Interval history: Postop day 1 status post right shoulder arthroscopic lavage and debridement Patient resting in bed this morning Reports significant pain in the right shoulder, but reports that this is improved significantly since prior surgery No acute acute events overnight per patient, but nursing does report that the patient did have several episodes of uncontrolled pain No other acute complaints or concerns at this time Physical Exam Vital Signs: Vital Signs: Last Vital Signs Temp 97.3 F 04/19/25 07:47 Pulse 54 04/19/25 07:47 Resp 18 04/19/25 07:47 BP 132/62 04/19/25 07:47 Pulse Ox 100 04/19/25 07:47 O2 Del Method Room Air 04/19/25 07:47 O2 Flow Rate 2 04/18/25 12:57 BMI result Body Mass Index 43.2 Extrem: Other: Dressing on right shoulder clean, dry, intact. Patient is able to flex and extend the right elbow, wrist, and digits of the right hand without difficulty. Distal sensation intact. Capillary refill brisk. Procedures Date of Service Date of Service: 04/19/25 Progress Note: A&P Assessment and plan (1) Septic joint of right shoulder region: Status: Acute Plan 1. Status post arthroscopic lavage and debridement of right shoulder DOS 04/18/2025 Patient appears to be recovering fairly well postoperatively Continue pain management Cultures negative for any growth after 24 hours May begin working with PT/OT as tolerated for some gentle range of motion of the right shoulder, as well as range of motion of the right elbow, wrist, hand Should come out of sling while at rest to allow the arm to hang down to prevent stiffness of the right arm Continue with all other recommendations per Medicine Time Spent With Patient Time: Total time managing care of this patient today ____ minutes. Quality Stroke Does the patient have a stroke diagnosis?: No VTE Prior VTE?: No VTE Risk Level:: Medical - moderate - high VTE Device Contraindication: Treatment Not Indicated VTE Drug Contraindication: N/A - Med Ordered
[2025-04-19 11:06] LABS: Glucose, Whole Blood 342 mg/dL (60-115)
--- NOTE | 2025-04-19 11:25 | HO.POSTANES ---
Post Anesthesia Evaluation Post Anesthesia Evaluation Date of Service: 04/19/25 Vital Signs: Vital Signs Temp Pulse Resp BP Pulse Ox O2 Del Method 04/19/25 07:47 97.3 F 54 18 132/62 100 Room Air 04/19/25 03:40 97.0 F 63 18 150/62 H 98 Room Air Anesthesia: General Endotracheal-GETA Mental Status: Awake Pain Control: Satisfactory Nausea/Vomiting: None Hydration: Adequate Anesthesia-Related Issues: No Anes. Related Issues
[2025-04-19 15:18] VITALS: BP 139/65; PULSE 56; RESP 16; TEMP 36.3; O2SAT 93
--- NOTE | 2025-04-19 15:55 | P.DS_ITS ---
DS: Providers Provider Date of Service: 04/20/25 Date of admission: 04/17/25 22:13 Date of discharge: 04/20/25 Primary care physician: Amanda Myers MD DS: Diagnosis Discharge Diagnosis (1) Septic joint of right shoulder region: Status: Acute DS: Summary Hospital Course Hospital Course: Ms. 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 who presented to the emergency department for evaluation of severe right shoulder pain. She denies any injury or trauma. She reports one month of ongoing shoulder pain. Denies illicit drug use, tobacco use and alcohol use. She has used oxycodone and gabapentin in the past with no relief. While in the emergency department labs were obtained and significant for elevated inflammatory markers. Additionally, a CT scan was obtained in which there was gas found questioning septic joint. The Ed provider aspirated the shoulder joint and reported 5cc of purulent aspirate. The patient was admitted to the orthopedic service for further evaluation and treatment. Patient underwent a successful arthroscopic lavage of the right shoulder in which no infectious pathology was observed. Cultures were obtained in the emergency department and negative for any growth. Dressing is clean dry and intact in the plan was to discharge the patient home with orthopedic follow-up for suture removal in 1 week. Sling as needed for comfort. Encouraged patient to come out of the sling to work on gentle range of motion to avoid stiffness. Time Attestation Discharge Coordination Time (in mins): 30 Quality: Safe Use of Opioids Does Pt have an Active Cancer Diagnosis on the Problem List?: No Quality: Stroke Does the patient have a stroke diagnosis?: No Physical Exam Vital Signs: Vital Signs: Last Vital Signs Temp 97.3 F 04/19/25 15:18 Pulse 56 04/19/25 15:18 Resp 16 04/19/25 15:18 BP 139/65 04/19/25 15:18 Pulse Ox 93 04/19/25 15:18 O2 Del Method Room Air 04/19/25 15:18 O2 Flow Rate 2 04/18/25 12:57 BMI result Body Mass Index 43.2 Extrem: Other: Right shoulder dressing is clean dry and intact. Patient is able to perform forward flexion and abduction to roughly 45 degrees. Full range of motion of the elbow hand and wrist. Distal sensation intact. Capillary refill brisk. DS: Data Data Completed and Pending Completed studies during hospitalization [Text1]: Procedures Control Bleeding in Gastrointestinal Tract, Via Natural or Artificial Opening Endoscopic (03/03/25) Excision of Duodenum, Via Natural or Artificial Opening Endoscopic, Diagnostic (03/03/25) Excision of Right Large Intestine, Via Natural or Artificial Opening Endoscopic, Diagnostic (03/03/25) Excision of Stomach, Via Natural or Artificial Opening Endoscopic, Diagnostic (03/03/25) Transfusion of Nonautologous Red Blood Cells into Peripheral Vein, Percutaneous Approach (03/03/25) Labs on day of discharge: Laboratory Results - last 24 hr 04/18/25 04/18/25 04/19/25 16:02 19:59 07:40 POC Glucose 368 H* 355 H* 274 H 04/19/25 11:00 POC Glucose 342 H Preliminary micro results at discharge 04/18/25 00:26 Routine Culture - Preliminary Shoulder - Right Side No growth to date. Anaerobic Culture - Preliminary No growth to date. 04/17/25 22:15 Blood Culture - Preliminary Blood - Venous No growth after 24 hours. 04/17/25 22:07 Blood Culture - Preliminary Blood - Venous No growth after 24 hours. Discharge Plan Discharge Anticipated Discharge Date/Time: 04/20/25 09:26 Patient Disposition: Home, Self-Care Discharge Diagnosis: Chronic right shoulder pain Referrals: Amanda Watkins MD [Primary Care Provider, Internal Medicine] - 1 Week Discharge Medications: New acetaminophen 325 mg Tablet 650 mg PO Q6H PRN (Reason: Pain, Mild 1-3,Fever,Headache) 30 Days Qty: 240 0RF oxycodone 5 mg tablet 5 mg PO Q6H PRN (Reason: pain) 7 Days Qty: 28 0RF Rx Instructions: Partial Fill upon patient request. Continued atorvastatin 80 mg tablet 80 mg PO BEDTIME Eliquis 5 mg Tablet 5 mg PO BID Qty: 60 0RF omeprazole 40 mg capsule,delayed release(DR/EC) 40 mg PO DAILY@0630 duloxetine 20 mg capsule,delayed release(DR/EC) 20 mg PO DAILY calcium carbonate [Oyster Shell Calcium 500] 500 mg calcium (1,250 mg) tablet 500 mg PO BID Patient Comments: Applies to legs hydroxyzine HCl 25 mg tablet 25 mg PO Q8H PRN (Reason: anxiety) torsemide 20 mg tablet 20 mg PO DAILY Qty: 30 0RF amlodipine 5 mg Tablet 5 mg PO DAILY Qty: 30 0RF Protocol: Hold for SBP< HOLD for SBP < : 90 trazodone 150 mg tablet 150 mg PO BEDTIME albuterol sulfate 2.5 mg /3 mL (0.083 %) solution for nebulization 2.5 mg inhalation Q6H PRN (Reason: Shortness Of Breath Or Wheezing) gabapentin 300 mg capsule 300 mg PO BID albuterol sulfate 90 mcg/actuation HFA aerosol inhaler 2 puff INHALATION QID PRN (Reason: Shortness Of Breath Or Wheezing) levothyroxine [Synthroid] 100 mcg Tablet 100 mcg PO DAILY@0600 Qty: 90 0RF aspirin 81 mg tablet,delayed release (DR/EC) 81 mg PO QAM docusate sodium 100 mg capsule 100 mg PO BID cyclobenzaprine 5 mg tablet 5 mg PO TID melatonin 5 mg tablet 5 mg PO BEDTIME insulin degludec [Tresiba FlexTouch U-200] 200 unit/mL (3 mL) insulin pen 67 unit subcut DAILY Mounjaro 5 mg/0.5 mL pen injector 5 mg SUBCUT FR ferrous fumarate 324 mg (106 mg iron) tablet 324 mg PO DAILY Qty: 90 0RF Discontinued oxycodone-acetaminophen [Percocet] 5-325 mg tablet 1 tab PO Q6H PRN (Reason: pain) 3 Days Qty: 9 0RF Rx Instructions: Partial Fill upon patient request. Discharge Orders: Discharge Order (Routine); Ordered 04/20/25 Ordered By: Tamiko Edwards Diet: Advance to usual diet Activity on Discharge: Use Splints or Immobilizers Stand Alone Forms: Patient Portal Discharge page Print Language: South African Activity Restrictions/Additional Instructions: follow up with orthopedics as planned Wednesday Care Plan Goals: Restore fxn to the right shoulder Health Concerns: None Plan of Treatment: Wear sling for comfort - discontinue after 5-7 days Perform pendulum exercises to avoid stiffness No heavy lifting-OK to move arm at elbow and wrist Do not bathe or shower - keep dressings c/d/i Call [facility] orthopedics with any questions or concerns. Follow up with orthopedics in 7-10 days post op Assessment: Stable for discharge Patient Instructions: Arthralgia (ED)
[2025-04-19 16:19] LABS: Glucose, Whole Blood 255 mg/dL (60-115)
[2025-04-19 19:34] VITALS: BP 153/67; PULSE 66; RESP 16; TEMP 36.1; O2SAT 97
[2025-04-19] MEDS: Throat Lozenge, Medicated LOZENGE 1 LOZENGE MUCOUS MEM (19:42)
[2025-04-19 20:38] LABS: Glucose, Whole Blood 243 mg/dL (60-115)
[2025-04-19] MEDS: Insulin Glargine,Hum.rec.anlog 100 UNIT/ML 10 ML VIAL 20 UNIT SUBCUT (20:53)
[2025-04-20 03:57] VITALS: BP 142/64; PULSE 60; RESP 18; TEMP 36.4; O2SAT 97
[2025-04-20 07:33] LABS: Glucose, Whole Blood 180 mg/dL (60-115)
[2025-04-20 07:51] VITALS: BP 139/64; PULSE 66; RESP 18; TEMP 36.1; O2SAT 97
[2025-04-20] MEDS: Aspirin Enteric Coated 81 MG TABLET.DR PO (08:23)
[2025-04-20] MEDS: Calcium Oyster Shell Elemental 500 MG TABLET PO (08:24)
[2025-04-20] MEDS: Ferrous Sulfate 324 MG TABLET.DR PO (08:24)
[2025-04-20] MEDS: 0.9 % Sodium Chloride Flush 3 ML SYRINGE IVFLUSH (08:26)
--- NOTE | 2025-04-20 10:36 | MHC.CM.PN ---
Addendum entered by Regina Bridges 04/20/25 10:47: PTS DAUGHTER NOW AT BEDSIDE AND WILL TRANSPORT PT HOME. [facility] NOTIFIED OF DC VIA [employer] Original Note: PT IS CLEARED FOR DC, SHE REPORTS SHE WOULD LIKE TO DC HOME CM CALLED PTS SONLETICIA [phone] TO DISCUSS DCP/TRANSPORT, HE REPORTS HE IS OUT OF THE AREA AND WILL HAVE HIS SISTER CALL. PLAN IS TO DC PT HOME WITH COMFORT PLUS [facility].
[2025-04-20 10:56] VITALS: BP 158/65; PULSE 71; RESP 18; TEMP 36; O2SAT 93
--- NOTE | 2025-04-27 13:57 | P.OP_ITS ---
Operative Note Operative Note Date of Service: 04/18/25 Narrative: Date of Service: 04/18/25 Pre-op diagnosis: Right shoulder fluid collection Post-op diagnosis: same Procedure: Arthroscopic debridement and lavage right shoulder Implants: none Surgeon: Carter Goldsmith MD Anesthesia: GETA and local Was an Fixed Assets Accountant used for this Procedure?: Yes Fixed Assets Accountant: Tamiko Edwards Estimated blood loss (mL): 5 IV fluids (mL): 500 Pathology: none sent Condition: stable Disposition: PACU Indications: Is a 74-year-old woman with longstanding shoulder pain who presented with a seat T showing air in the subacromial/subdeltoid space. Because she had elevated inflammatory markers and ongoing pain the decision was made to perform a arthroscopic debridement and lavage. Procedure detail: Patient was brought the operating room placed in the beach chair position. Her right shoulder was prepped and draped in the standard sterile fashion. Procedure in detail: Patient was brought to the operating room and placed the the beach chair position. All bony prominences were well padded and the limb was prepped and draped in standard sterile fashion. A time out was called to identify proper site, proper procedure and proper surgeon. IV antibiotics per weight were administered. I began by making a posterolateral stab incision with a 15 blade. A blunt trochar was placed into the the subacromial space. A direct lateral portal was then established and I performed a bursectomy. There was abundant bursal tissue but otherwise there was no evidence of infection. Was no unusual appearance to any of the fluid aspirated. I did examine the rotator cuff and there was a large full-thickness non-retracted tear of the rotator cuff. I placed my camera and shaver into the glenohumeral joint via the subacromial space. The joint itself was arthritic but otherwise unremarkable. The biceps tendon was intact and there was no evidence of infection. I then returned to the subacromial space and finished my bursectomy and entered the subdeltoid space and also performed a bursectomy and again there was no evidence of infection. Once I was satisfied , final images were captured and I removed all instrumentation. Portals were closed with nylon. Patient was placed in an abduction sling, extubated and brought to the recovery room in stable condition. There were no known complications.
== END 2025-04-20 11:06 | disposition home or self-care (01) | DRG 501 ==
LOC: HO.ED 21:49 → HO.EDOVER 22:39 → HO.SSSA 04-18 10:24 → HO.S3 04-18 11:56
PROVIDERS: Emergency Medicine; Nurse Practitioner Acute Care; Orthopaedic Surgery; Admitting Provider Hospitalist; Emergency Provider Emergency Medicine Emergency Medical Services; PCP Internal Medicine; Visit Provider Physician Assistant
PROC: 0MB14ZZ Excision of Right Shoulder Bursa and Ligament, Percutaneous Endoscopic Approach (ICD-10-PCS; CPT 29805; principal; 2025-04-18 09:30)
DX: M19.011 Primary osteoarthritis, right shoulder (principal); I13.0 Hypertensive heart and chronic kidney disease with heart failure and stage 1 through stage 4 chronic kidney disease, or unspecified chronic kidney disease; I48.20 Chronic atrial fibrillation, unspecified; I50.22 Chronic systolic (congestive) heart failure; Z68.41 Body mass index [BMI] 40.0-44.9, adult; I25.10 Atherosclerotic heart disease of native coronary artery without angina pectoris; E03.9 Hypothyroidism, unspecified; D63.1 Anemia in chronic kidney disease; E11.22 Type 2 diabetes mellitus with diabetic chronic kidney disease; E66.01 Morbid (severe) obesity due to excess calories; Z71.3 Dietary counseling and surveillance; N18.32 Chronic kidney disease, stage 3b; Z79.4 Long term (current) use of insulin; Z79.01 Long term (current) use of anticoagulants; Z79.82 Long term (current) use of aspirin; Z79.85 Long-term (current) use of injectable non-insulin antidiabetic drugs; Z79.890 Hormone replacement therapy; Z79.899 Other long term (current) drug therapy
CPT/HCPCS: 36415; 73200; 80048; 80053; 82947; 83605; 85025; 85652; 86140; 87040; 87070; 87073; 87205; 89051; 93005; 97162; 97530; 99285; J0165; J0696; J1100; J1171; J2003; J2250; J2405; J2704; J2795; J3010; J3374

== ENCOUNTER → 2025-04-17 14:38 | Outpatient (BNV) | payer OTHER, SELFPAY | PROVIDERS: Emergency Provider Emergency Medicine Emergency Medical Services; PCP Internal Medicine; Visit Provider Radiology Diagnostic Radiology | DX: M25.411 Effusion, right shoulder (principal) | CPT/HCPCS: 73200 ==

== ENCOUNTER → 2025-04-17 15:11 | Outpatient (BNV) | payer OTHER, SELFPAY | PROVIDERS: Admitting Provider Hospitalist; Emergency Provider Emergency Medicine Emergency Medical Services; PCP Internal Medicine; Visit Provider Internal Medicine Cardiovascular Disease | DX: M25.511 Pain in right shoulder (principal) | CPT/HCPCS: 93010 ==

== ENCOUNTER → 2025-04-17 22:13 | Outpatient (BNV) | payer OTHER, SELFPAY | PROVIDERS: Admitting Provider Hospitalist; Emergency Provider Emergency Medicine Emergency Medical Services; PCP Internal Medicine; Visit Provider Physician Assistant | DX: M00.9 Pyogenic arthritis, unspecified (principal) | CPT/HCPCS: 99232; 99499 ==

== ENCOUNTER → 2025-04-17 22:13 | Outpatient (BNV) | payer OTHER, SELFPAY | PROVIDERS: Admitting Provider Hospitalist; Emergency Provider Emergency Medicine Emergency Medical Services; PCP Internal Medicine; Visit Provider Physician Assistant | DX: M00.9 Pyogenic arthritis, unspecified (principal) | CPT/HCPCS: 29822; 99024; 99222; 99499 ==

== ENCOUNTER 2025-04-27 12:20 | Outpatient (AMB) | payer OTHER, SELFPAY ==
--- OUTSIDE RECORDS SUMMARY | 2025-03-06 06:50 | XMS_ITS ---
Author Organization [facility] Address [address] [place] [address] Care Team Providers Care Inclusion Intern Name Role Phone Amanda Adame M.D. Primary Care Provider Geoff Leon Jr, João Marie [phone] REASON FOR VISIT anemia Encounters Encounter Location Date Provider Diagnosis [facility] [place] [address] [place], [place] [id number] 03/06/2025 João Leon Jr Plan Of Treatment Next Appt Details Provider Name:João yañez Jr, 07/26/2025 02:15:00 PM, [address], [address], [place], [address], Progress Notes * JP MORGANDOB:[birth year] (74 yo F)Acc No.[id number]:03/06/2025 EGD and COL/MAC Patient: JP HINKLE Provider: Shannan Leon MD :1950 A ge:74 Y S ex:Female Date:03/06/2025 Address:[address] [place] [address] [address] , [place], [place] Pcp:Amanda Adame M.D. Subjective: * Chief Complaints: [...] 0 03/06/2025 Generated for Selene garcia/Thad/Miriamitting on: 0 04/27/2025 12:27 PM EDT
--- OUTSIDE RECORDS SUMMARY | 2025-04-27 12:27 | XMS_ITS | Encounter Summary ---
Author Organization [employer] Address [address] [facility] 7t [place] [address] Care Team Providers Care Supply Chain Vice President Name Role Phone Amanda Watkins MD Primary Care Provide r Hiro Ram SOLICITOR PATENT Unavailable Unavailable Raad Arias PharmD Unavailable [phone] Reason for Visit * Reason Onset Date Comments Med Refill 01/16/2025 Encounter Details Date Type Department Care Team ([facility] st Contact Info) Description 01/16/2025 Telephone [facility] MEDICINE [address] [place] [address] Amanda Watkins MD [address] [place] [address] Med Refill Social History Tobacco Use Types [...] 10:59 AM EDT Medication was sent to [facility] Pharmacy on 12/28/24 #30 with 2 refills. * Telephone Encounter - Radha Stevenson - 01/16/2025 10:54 AM EDT TC from pt requesting medication refill. Medications needing refill : levothyroxine (Synthroid, Levoxyl) 75 MCG tablet To be sent to: [facility] pharmacy documented in this encounter Plan of Treatment Upcoming Encounters Date Type Department Care Team (Late st Contact Info) Description 04/30/2025 2:30 PM EDT Medication Management [facility] MEDICINE [address] [place] [address] Raad Arias, PharmD [address] [place] [address] 05/08/2025 10:15 AM EDT Office Visit [address] [address] [place] [address] 07/09/2025 3:30 PM EST Office Visit [address] [address] [place] [address] documented as of this encounter Visit Diagnoses Not on filedocumented in this encounter Additional Health Concerns Assessment Noted Time PHQ-9 Depression Total Score: 0 09/01/19 1:18 PM EST documented as of this encounter Care Teams Supply Chain Vice President Relationship Specialty Start Date End Date Amanda Watkins MD [address] [place] [address] PCP - General Family Medicine 04/07/19 Hiro Ram FNP [address] [place] [address] Nurse Practitioner Family Medicine 07/06/23 Raad Arias, Carlos [address] [place] [address] Pharmacist Internal Medicine 10/19/24 Ja Castillo 08/10/24 03/12/25 [facility] 03/08/25 documented as of this encounter
--- OUTSIDE RECORDS SUMMARY | 2025-04-27 12:27 | XMS_ITS | Encounter Summary ---
Author Organization [employer] Address [address] [facility] 7t [place] [address] Care Team Providers Care Underground Mine Machinery Mechanic Name Role Phone Amanda Watkins MD Primary Care Provide r Hiro Ram HOME CARE ATTENDANT Unavailable Unavailable Raad Arias PharmD Unavailable [phone] Reason for Visit * Reason Comments Med Refill Encounter Details Date Type Department Care Team (Late st Contact Info) Description 07/05/2024 Refill [facility] MEDICINE [address] [place] [address] Amanda Watkins MD [address] [place], [place] [phone] Social History Tobacco Use Types Packs/Day Years [...] Description 04/30/2025 2:30 PM EDT Medication Management [address] [address] Raad Arias, PharmD [address] [place] [address] 05/08/2025 10:15 AM EDT Office Visit [address] [address] Amanda Watkins MD [address] [place] [address] 07/09/2025 3:30 PM EST Office Visit [address] [address] Amanda aWtkins MD [address] [place] [address] documented as of this encounter Visit Diagnoses Not on filedocumented in this encounter Additional Health Concerns Assessment Noted Time PHQ-9 Depression Total Score: 10 024 3:23 PM EDT documented as of this encounter Care Teams Underground Mine Machinery Mechanic Relationship Specialty Start Date End Date Amanda Watkins MD [address] [place] [address] PCP - General Family Medicine 04/07/19 Hiro Ram FNP [address] [place] [address] Nurse Practitioner Family Medicine 07/06/23 Raad Arias, TheaD [address] [place] [address] Pharmacist Internal Medicine 10/19/24 [facility] 07/03/22 08/16/24 Ja [facility] 08/10/24 03/12/25 [facility] 03/08/25 documented as of this encounter
--- OUTSIDE RECORDS SUMMARY | 2025-04-27 12:27 | XMS_ITS | Encounter Summary ---
Author Organization [employer] Address [address] [facility] 7t [place] [address] Care Team Providers Care Insurance Application Investigator Name Role Phone Amanda Watkins MD Primary Care Provide r Hiro Ram WATERPROOFING MIXER Unavailable Unavailable Raad Arias PharmD Unavailable [phone] Reason for Visit * Reason Comments Med Refill Encounter Details Date Type Department Care Team (Late st Contact Info) Description 02/11/2024 Refill [facility] MEDICINE [address] [place] [address] Amanda Watkins MD [address] [place], [place] [phone] Type 2 diabetes mellitus with other specified complication, unspecified whether senior living insulin use ([facility]) [...] Description 04/30/2025 2:30 PM EDT Medication Management [address] [address] Raad Arias, PharmD [address] [place] [address] 05/08/2025 10:15 AM EDT Office Visit [address] [address] Amanda Watkins MD [address] [place] [address] 07/09/2025 3:30 PM EST Office Visit [address] [address] Amanda Watkins MD [address] [place] [address] documented as of this encounter Visit Diagnoses Diagnosis Type 2 diabetes mellitus with other specified complication, unspecified whether senior living insulin use ([facility]) documented in this encounter Additional Health Concerns Assessment Noted Time PHQ-9 Depression Total Score: 10 024 3:23 PM EDT documented as of this encounter Care Teams Insurance Application Investigator Relationship Specialty Start Date End Date Amanda Watkins MD [address] [place] [address] PCP - General Family Medicine 04/07/19 Hiro Ram FNP [address] [place] [address] Nurse Practitioner Family Medicine 07/06/23 Raad Arias, TheaD [address] [place] [address] Pharmacist Internal Medicine 10/19/24 [facility] 07/03/22 08/16/24 [facility] 08/10/24 03/12/25 [facility] 03/08/25 documented as of this encounter
--- OUTSIDE RECORDS SUMMARY | 2025-04-27 12:27 | XMS_ITS | Encounter Summary ---
Author Organization [employer] Address [address] [facility] 7t [place] [address] Care Team Providers Care Price Accuracy Supervisor Name Role Phone Amanda Watkins MD Primary Care Provide r Hiro Ram SURVEYOR CHAIN HELPER Unavailable Unavailable Raad Arias PharmD Unavailable Encounter Details Date Type Department Care Team (Late st Contact Info) Description 04/23/2025 Refill [facility] MEDICINE [address] [place] [address] Amanda Watkins MD [address] [place] [address] Social History Tobacco Use Types Packs/Day Years [...] housing situation today? I have ramiro troy 02/15/[address] you li [...] Description 04/30/2025 2:30 PM EDT Medication Management [address] [address] Raad Arias, PharmD [address] [place] [address] 05/08/2025 10:15 AM EDT Office Visit [address] [address] Amanda Watkins MD [address] [place] [address] 07/09/2025 3:30 PM EST Office Visit [address] [address] Amanda Watkins MD [address] [place] [address] documented as of this encounter Visit Diagnoses Not on filedocumented in this encounter Additional Health Concerns Assessment Noted Time PHQ-9 Depression Total Score: 14 025 2:41 PM EDT documented as of this encounter Care Teams Price Accuracy Supervisor Relationship Specialty Start Date End Date Amanda Watkins MD [address] [place] [address] PCP - General Family Medicine 04/07/19 Hiro Ram FNP [address] [place] [address] Nurse Practitioner Family Medicine 07/06/23 Raad Arias, TheaD [address] [place] [address] Pharmacist Internal Medicine 10/19/24 [facility] 03/08/25 documented as of this encounter
--- OUTSIDE RECORDS SUMMARY | 2025-04-27 12:27 | XMS_ITS | Encounter Summary ---
Author Organization [employer] Address [address] [facility] 7t [place] [address] Care Team Providers Care Associate Manager Name Role Phone Amanda Watkins MD Primary Care Provide r Hiro Ram URGENT CARE PHYSICIAN Unavailable Unavailable Raad Arias PharmD Unavailable [phone] Reason for Visit * Reason Comments Med Refill Encounter Details Date Type Department Care Team (Late st Contact Info) Description 10/16/[address] [facility]EDS [address] [place] [address] Amanda Watkins MD [address] [place] [address] Chronic bilateral low back pain with bilateral [...] Description 04/30/2025 2:30 PM EDT Medication Management [address] [address] Raad Airas, PharmD [address] [place] [address] 05/08/2025 10:15 AM EDT Office Visit [address] [address] Amanda Watkins MD [address] [place] [address] 07/09/2025 3:30 PM EST Office Visit [address] [address] Amanda Watkins MD [address] [place] [address] documented as of this encounter Visit Diagnoses Diagnosis Chronic bilateral low back pain with bilateral sciatica documented in this encounter Additional Health Concerns Assessment Noted Time PHQ-9 Depression Total Score: 0 09/01/19 1:18 PM EST documented as of this encounter Care Teams Associate Manager Relationship Specialty Start Date End Date Amanda Watkins MD [address] [place] [address] PCP - General Family Medicine 04/07/19 Hiro Ram FNP [address] [place] [address] Nurse Practitioner Family Medicine 07/06/23 Raad Arias, TheaD [address] [place] [address] Pharmacist Internal Medicine 10/19/24 Ja A 08/10/24 03/12/25 [facility] 03/08/25 documented as of this encounter
--- OUTSIDE RECORDS SUMMARY | 2025-04-27 12:27 | XMS_ITS | Encounter Summary ---
Author Organization [employer] Address [address] [facility] 7t [place] [address] Care Team Providers Care Tele Tech Name Role Phone Amanda Watkins MD Primary Care Provide r Hiro Ram SEDIMENTATIONIST Unavailable Unavailable Raad Arias PharmD Unavailable [phone] Reason for Visit * Reason Onset Date Comments Hospital Follow-up 08/16/2024 Encounter Details Date Type Department Care Team (Late st Contact Info) Description 08/16/2024 Telephone [facility] MEDICINE [address] [place] [address] Amanda Watkins MD [address] [place], [place] [phone] Hospital Follow-up Social History Tobacco Use Types [...] from pt requesting a HDF appt. Hospital: [facility] Date of admission: 08/12/24 Discharge date: 08/15/2024 Diagnosed: (water in the lungs) *Send message to [place] Clinical Care Coordinators documented in this encounter Plan of Treatment Upcoming Encounters Date Type Department Care Team (Late st Contact Info) Description 04/30/2025 2:30 PM EDT Medication Management [address] [address] Raad Arias, PharmD [address] [place] [address] 05/08/2025 10:15 AM EDT Office Visit [address] [address] Amanda Watkins MD [address] [place] [address] 07/09/2025 3:30 PM EST Office Visit [facility] MEDICINE [address] [place] [address] Amanda Watkins MD [address] [place] [address] documented as of this encounter Visit Diagnoses Not on filedocumented in this encounter Additional Health Concerns Assessment Noted Time PHQ-9 Depression Total Score: 10 024 3:23 PM EDT documented as of this encounter Care Teams Tele Tech Relationship Specialty Start Date End Date [place] [address] PCP - General Family Medicine 04/07/19 Hiro Ram FNP [address] [place] [address] Nurse Practitioner Family Medicine 07/06/23 Raad Arias, TheaD [address] [place] [address] Pharmacist Internal Medicine 10/19/24 [facility] Care 07/03/22 08/16/24 Ja [facility] 08/10/24 03/12/25 [facility] 03/08/25 documented as of this encounter
--- OUTSIDE RECORDS SUMMARY | 2025-04-27 12:27 | XMS_ITS | Encounter Summary ---
Author Organization [employer] Address [address] [place] [address] 7t [place] [address] Care Team Providers Care Road Machinery Inspector Name Role Phone Amanda Watkins MD Primary Care Provide r Hiro Ram DENTAL OFFICE ASSISTANT Unavailable Unavailable Raad Arias PharmD Unavailable [phone] Encounter Details Date Type Department Care Team ([facility] st Contact Info) Description 09/06/2024 Orders Only [facility] MED & PEDS [address] [place], [place] [phone] MiltonWaldemar Chance MD [address] [place] [address] Social History Tobacco Use Types Packs/Day Years [...] Description 04/30/2025 2:30 PM EDT Medication Management [address] [address] Raad Arias, PharmD [address] [place] [address] 05/08/2025 10:15 AM EDT Office Visit [address] [address] Amanda Watkins MD [address] [place] [address] 07/09/2025 3:30 PM EST Office Visit [address] [address] Amanda Watkins MD [address] [place] [address] documented as of this encounter Visit Diagnoses Not on filedocumented in this encounter Additional Health Concerns Assessment Noted Time PHQ-9 Depression Total Score: 0 09/01/19 25 1:18 PM EST documented as of this encounter Care Teams Road Machinery Inspector Relationship Specialty Start Date End Date Amanda Watkins MD [address] [place] [address] PCP - General Family Medicine 04/07/19 Hiro Ram FNP [address] [place] [address] Nurse Practitioner Family Medicine 07/06/23 Raad Arias, TheaD [address] [place] [address] Pharmacist Internal Medicine 10/19/24 Ja A 08/10/24 03/12/25 [facility] 03/08/25 documented as of this encounter
--- OUTSIDE RECORDS SUMMARY | 2025-04-27 12:27 | XMS_ITS | Encounter Summary ---
Author Organization [employer] Address [address] [facility] 7t [place] [address] Care Team Providers Care Roller Hand Name Role Phone Amanad Watkins MD Primary Care Provide r Hiro Ram Unavailable Unavailable Raad Arias PharmD Unavailable [phone] Reason for Visit * Reason Comments Med Refill Encounter Details Date Type Department Care Team (Late st Contact Info) Description 11/18/2023 Refill [facility] MEDICINE [address] [place] [address] Hiro Ram FNP Social History Tobacco Use [...] Description 04/30/2025 2:30 PM EDT Medication Management [facility] MEDICINE [address] [place] [address] Raad Arias, PharmD [address] [place] [address] 05/08/2025 10:15 AM EDT Office Visit [address] [address] Amanda Watkins MD [address] [place] [address] 07/09/2025 3:30 PM EST Office Visit [address] [address] Amanda Watkins MD [address] [place] [address] documented as of this encounter Visit Diagnoses Not on filedocumented in this encounter Additional Health Concerns Assessment Noted Time PHQ-9 Depression Total Score: 8 07/19/20 23 11:34 AM EST documented as of this encounter Care Teams Roller Hand Relationship Specialty Start Date End Date Amanda Watkins MD [address] [place] [address] PCP - General Family Medicine 04/07/19 Hiro Ram FNP [address] [place] [address] Nurse Practitioner Family Medicine 07/06/23 Raad Arias, PharmD [address] [place] [address] Pharmacist Internal Medicine 10/19/24 [facility] 07/03/22 08/16/24 Ja [facility]END[facility] TO [facility] 08/10/24 03/12/25 [facility] 03/08/25 documented as of this encounter
--- OUTSIDE RECORDS SUMMARY | 2025-04-27 12:27 | XMS_ITS | Clinical Summary ---
Author Organization [employer] Address [address] [place] [address] Care Team Providers Care Clothing Cutter Name Role Phone Amanda Watkins MD Primary Care Provide r Hiro Ram FRATERNITY ADVISER Unavailable Unavailable Raad Arias PharmD Unavailable [phone] Allergies Active Allergy Reactions Criticality Noted Date [...] hyperglycemia, with long-term current use of insulin ([facility]) Use to test blood sugar 3 times daily 100 each 12 024 2024 Active Blood Glucose Monitoring Suppl (FreeStyle [place] Lite) w/Device kitIndications:Ty pe 2 diabetes mellitus with hyperglycemia, with long-term current use of insulin ([facility]) Use to test blood sugar 3 times daily 1 kit 024 Active acetaminophen (Acetaminophen 8 Hour) 650 MG ER tablet Take 650 mg by mouth every 8 (eight) hours if needed for mild pain. Do not crush, chew, or split. Active omeprazole (PriLOSEC) [address] capsuleIndication s:Epigastric pain TAKE 1 CAPSULE BY MOUTH EVERY MORNING BEFORE BREAKFAST. DO NOT BREAK, CRUSH, DISSOLVE OR CHEW 30 capsule Active hydrOXYzine HCl (Atarax) 25 MG tablet Take 1 tablet (25 mg) by mouth every 8 (eight) hours if needed for anxiety. 90 tablet Active atorvastatin (Lipitor) 80 MG tablet TAKE 1 TABLET BY MOUTH EVERY EVENING 90 tablet Active insulin degludec (Tresiba FlexTouch) 200 UNIT/ML injectionIndicati ons:Type 2 diabetes mellitus with hyperglycemia, with long-term current use of insulin ([facility]) Inject 64 units under the skin daily 18 mL Active pen needle 32G x 4 mm miscIndications:T ype 2 diabetes mellitus with hyperglycemia, with long-term current use of insulin ([facility]) Use daily with insulin 100 each 3 025 2025 Active torsemide (Demadex) 20 MG tablet TAKE 1 TABLET BY MOUTH EVERY MORNING 30 tablet 3 Active traZODone (Desyrel) 150 MG tabletIndications :Recurrent major depressive episodes, mild ([facility]) Take 1 tablet (150 mg) by mouth at bedtime. 90 tablet 2 Active TRUEplus Lancets 33G miscIndications:T ype 2 diabetes mellitus with hyperglycemia, with long-term current use of insulin ([facility]) USE DIRECTED TO TEST BLOOD SUGAR THREE TIMES DAILY 100 each 5 025 Active Eye Itch Relief 0.035 % solutionIndicatio ns:Allergic conjunctivitis of both eyes INSTILL 1 DROP AFFECTED EYE(S) EVERY TWELVE HOURS NEEDED 10 mL 025 Active Oyster Shell Calcium 500 MG tablet TAKE 1 TABLET BY MOUTH TWICE DAILY IN THE MORNING AND AT BEDTIME 180 tablet 025 Active gabapentin (Neurontin) 300 MG capsuleIndication s:Type 2 diabetes mellitus with diabetic autonomic neuropathy, with long-term current use of insulin ([facility]) Take 1 capsule (300 mg) by mouth 2 times daily. 60 capsule 2 025 2025 Active Eliquis 5 MG tabletIndications :Atrial fibrillation, unspecified type (CMS/HCC) TAKE 1 TABLET BY MOUTH TWICE DAILY IN THE MORNING AND AT BEDTIME 60 tablet 2 Active albuterol (2.5 MG/3ML) 0.083% nebulizer solution [...] by mouth before breakfast. 90 tablet Active lidocaine (Lidoderm) 5 % patchIndications: Primary [...] (two) times a week. 120 mL 2 Active melatonin 5 MG tabletIndications :Primary insomnia [...] EVERY MORNING 30 tablet 3 025 Active Alcohol Swabs (Alcohol Prep) 70 % padsIndications:T ype 2 diabetes mellitus with hyperglycemia (CMS/HCC) USE DIRECTED TO TEST BLOOD SUGAR THREE TIMES DAILY 100 each 11 09/04/2 025 Active Tirzepatide (Mounjaro) 5 MG/0.5ML solution auto-injectorIndi cations:Type 2 diabetes mellitus with diabetic autonomic neuropathy, with long-term current use of insulin ([facility]) Inject 5 mg under the skin 1 (one) time per week. 2 mL 3 025 Active Ferrocite 324 MG tablet Take 1 tablet by mouth Once per day. 025 Active Continuous Glucose Master Welder (FreeStyle Mickey 3 [place]) deviceIndications :Type 2 diabetes mellitus with diabetic autonomic neuropathy, with long-term current use of insulin ([facility]) 1 each Once per day. Use as directed for CGM 1 each 025 Active Continuous Glucose Sensor (FreeStyle Mickey 3 Plus Sensor) miscIndications:T ype 2 diabetes mellitus with diabetic autonomic neuropathy, with long-term current use of insulin ([facility]) 1 each every 15 days. Apply 1 every 15 days as directed for CGM 2 each 11 Active DULoxetine (Cymbalta) [address] capsule Take 1 capsule (20 mg) by mouth in the morning. 30 capsule 025 Active Alcohol Swabs (Alcohol Prep) 70 % pads USE FOUR TIMES DAILY DIRECTED 100 each 11 024 2024 Discontinued Continuous Glucose Sensor (FreeStyle Mickey 2 Sensor) miscIndications:T ype 2 diabetes mellitus with other specified complication, with long-term current use of insulin ([facility]) Apply 1 sensor every 14 days 2 each 2 024 2024 Discontinued(A lternate therapy) Continuous Glucose Master Welder (FreeStyle Mickey 2 [place]) deviceIndications :Type 2 diabetes mellitus with other specified complication, with long-term current use of insulin ([facility]) Scan sensor every 8 hours 1 each 025 2024 Discontinued(A lternate therapy) amLODIPine (Norvasc) 5 MG tablet TAKE 1 TABLET BY MOUTH EVERY MORNING 30 tablet 3 025 2024 Discontinued melatonin 3 MG tablet TAKE 1 TABLET BY MOUTH AT BEDTIME 60 tablet 1 025 2024 Discontinued oxyCODONE-acetami nophen (Percocet) 5-325 MG tabletIndications :Chronic bilateral low back pain with bilateral sciatica TAKE 1 TABLET BY MOUTH EVERY 6 HOURS NEEDED FOR SEVERE PAIN 112 tablet 025 2024 Discontinued DULoxetine (Cymbalta) [address] capsule TAKE 1 CAPSULE BY MOUTH EVERY MORNING 30 capsule 025 2024 Discontinued(R eorder (will not trigger notification to Pharmacy)) Tirzepatide (Mounjaro) 2.5 MG/0.5ML solution auto-injectorIndi cations:Type 2 diabetes mellitus with diabetic autonomic neuropathy, with long-term current use of insulin ([facility]) Inject 2.5 mg under the skin 1 (one) time per week. 2 mL 2 025 2024 Discontinued(D ose adjustment) cyclobenzaprine (Flexeril) 5 MG tabletIndications :Primary osteoarthritis, right shoulder Take 1 tablet (5 mg) by mouth 3 times daily for 20 days. 30 tablet 025 2024 sulfamethoxazole- trimethoprim (Bactrim DS) 800-160 MG tabletIndications [...] Assessment & Plan (09/14/2024 6:46 PM EST): Shank Scourer referral done today I advised not to [...] (12/06/2023 2:13 PM EDT): I will follow [facility] instructions and I will change her percocet [...] medications every day I advised low-sodium diet Shank Scourer referral done today I advised to monitor [...] retiring, patient will be transferred to new [facility] psychiatric provider. Patient is aware that appointments will be via televisit. Any issues or concerns contact [facility]. All her questions were answered and I [...] advise low-sodium diet I advised weight reduction Shank Scourer referral done Assessment & Plan (12/06/2023 2:12 [...] weeks with nurse then 3 months with wy Assessment & Plan (11/18/2022 3:45 PM EDT): [...] and excersise -patient will be refer to wire dropper - Continue current medications, I can not [...] organization. Date Type Department Care Team Description 04/23/2025 Patient Outreach [facility] [address] [place] [address] Amanda Watkins MD Pre-visit Planning (HDF scheduled. ) 04/23/2025 Refill [facility] [address] [place] [address] Amanda Watkins MD 04/19/2025 Telephone [facility] [address] [place] [address] Amanda Watkins MD 04/17/2025 Orders Only GENERIC EXTERNAL DATA DEPARTMENT Provider, Generic External Data 04/17/2025 Telephone [facility] [address] [place] [address] Amanda Watkins MD Nurse Triage 04/16/2025 Travel 04/13/2025 Telephone [facility] [address] [place] [phone] Kayley Alanis RN Pt cancelled Tele IT APPLICATION ADMINISTRATOR RV at check in; Review message from PCP 04/16/25 re missed IT APPLICATION ADMINISTRATOR appt 04/11/2025 Refill [facility] [address] [place] [address] Amanda Watkins MD Type 2 diabetes mellitus with hyperglycemia (CMS/HCC) 04/08/2025 Refill [facility] [address] [place] [address] Amanda Watkins MD 04/02/2025 Refill [facility] [address] [place] [address] Amanda Watkins MD Chronic bilateral low back pain with bilateral sciatica 03/29/2025 2:00 PM EDT Office Visit [facility] [address] [place] [phone] Amanda Watkins MD Seborrheic dermatitis (Primary Dx); Type 2 diabetes mellitus with diabetic autonomic neuropathy, with long-term current use of insulin (CMS/HCC); Anemia, unspecified type; Chronic gastritis, presence of bleeding unspecified, unspecified gastritis type; Primary osteoarthritis, right shoulder; Slow transit constipation; Primary insomnia; Cellulitis of right lower extremity 03/29/2025 Travel 03/28/2025 Refill [facility] [address] [place] [address] Sia Leon, PharmD 03/27/2025 Telephone [facility] [address] [place] [address] Amanda Watkins MD Chart Prep 03/20/2025 Orders Only [facility] [address] [place] [address] Amanda Watkins MD Type 2 diabetes mellitus with diabetic autonomic neuropathy, with long-term current use of insulin (CMS/HCC) (Primary Dx) 03/20/2025 Telephone [facility] [address] [place] [address] Lynne Lazaro, DENTIST Follow-up 03/20/2025 Telephone [facility] [address] [place] [address] Amanda Watkins MD Referral 03/20/2025 Telephone [facility] [address] [place], [place] [phone] Amanda Watkins MD Nurse Triage 03/16/2025 Refill [facility] [address] [place] [address] Amanda Watkins MD 03/14/2025 Telephone [facility] [address] [place] [address] Amanda Watkins MD FYI 03/11/2025 Orders Only GENERIC EXTERNAL DATA DEPARTMENT Provider, Generic External Data 03/09/2025 Orders Only GENERIC EXTERNAL DATA DEPARTMENT Provider, Generic External Data 03/08/2025 Patient Outreach [facility] [address] [place] [address] Amanda Watkins MD Transition Of Care (Tcm) (HDF scheduled) 03/08/2025 Refill [facility] [address] [place] [address] Amanda Watkins MD Atrial fibrillation, unspecified type (CMS/HCC) 03/03/2025 Orders Only GENERIC EXTERNAL DATA DEPARTMENT Provider, Generic External Data 03/02/2025 Refill [facility] [address] [place] [address] Amanda Watkins MD Chronic bilateral low back pain with bilateral sciatica 02/27/2025 Telephone [facility] [address] [place] [address] Amanda Watkins MD 02/23/2025 Telephone [facility] [address] [place] [address] Raad Arias, PharmD 02/16/2025 Telephone [facility] [address] [place] [address] Amanda Watkins MD DME pullups 02/15/2025 9:00 AM EDT Telemedicine [facility] [address] [place] [phone] Amanda Watkins MD MDD (major depressive disorder), recurrent episode, moderate (CMS/HCC) (Primary Dx); Morbid obesity (CMS/HCC); Atrial fibrillation, unspecified type (CMS/HCC); Type 2 diabetes mellitus with diabetic autonomic neuropathy, with long-term current use of insulin (CMS/HCC); Stage 3b chronic kidney disease (CMS/HCC); Dietary counseling; Exercise counseling; Opioid dependence with opioid-induced disorder (CMS/HCC); Anxiety; Mixed stress and urge urinary incontinence; Chronic bilateral low back pain with bilateral sciatica 02/15/2025 Travel 02/14/2025 Telephone [facility] [address] [place] [address] Amanda Watkins MD Chart Prep 02/13/2025 Refill [facility] [address] [place], [place] [phone] Amanda Watkins MD 02/04/2025 Refill [facility] [address] [place] [address] Amanda Watkins MD 02/01/2025 Telephone [facility] [address] [place] [address] Amanda Watkins MD 01/26/2025 Refill [facility] [address] [place] [address] Amanda Watkins MD from Last 3 Months Immunizations Immunization Administration [...] housing situation today? I have ramirotom simmons 02/15/[address] you [...] 03/29/2025 2:02 PM EDT Plan of Treatment Upcoming Encounters Date Type Department Care Team (Late st Contact Info) Description 04/30/2025 2:30 PM EDT Medication Management [address] [address] Raad Arias, PharmD [address] [place] [phone] 05/08/2025 10:15 AM EDT Office Visit [address] [address] Amanda Watkins MD [address] [place] [address] 07/09/2025 3:30 PM EST Office Visit [address] [address] Amanda Watkins MD [address] [place] [address] Health Maintenance Due Date Last Done Comments [...] Procedure Name Priority Date/Time Associated Diagnosis Comments CT SHOULDER WO CONTRAST RIGHT Routine 04/17/2025 9:23 PM EDT LACTIC ACID Routine 04/17/2025 10:07 AM EDT POCT GLYCATED HEMOGLOBIN, TOTAL Routine 03/29/2025 2:06 PM EDT Type 2 diabetes mellitus with diabetic autonomic neuropathy, with long-term current use of insulin ([facility]) POCT GLUCOSE Routine 03/29/2025 2:04 PM EDT Type 2 diabetes mellitus with diabetic autonomic neuropathy, with long-term current use of insulin ([facility]) BASIC METABOLIC PANEL Routine 03/11/2025 8:31 AM [...] Recently Relevant to Health Maintenance Results * CT Shoulder w/o Contrast Right (04/17/2025 9:23 PM EDT) Anatomical Region Laterality Modality Upper Extremities, Shoulder Right Comp uted Tomography 04/17/2025 9:23 PM EDT Narrative 04/17/2025 9:25 PM EDT [address] [address] [address] Scan Report Signed with Tosin Patient: Mary Lou Godwni MR#: [id number] : 1950 Acct:[id number] Age/Sex: 74 / F ADM Date: 04/17/25 Loc: .ED Attending Dr: Ordering Physician: Kassy Barnard DO Date of Service: 04/17/25 Procedure(s): CT shoulder RT wo IV con Accession Number(s): [id number] cc: Amanda Watkins MD; Kassy Barnard DO Report Number: [id number]: Total DLP = 476.00 mGy-cm Reason for Exam: severe shoulder pain ADDENDUM This document has been electronically signed by: Annamaria Monroe on 04/17/2025 21:28:49 ADDENDUM: This report was discussed with JACKI RAMIREZ RN on Apr 17, 2025 21:25:00 EDT. This document has been electronically signed by: Annamaria Monroe on 04/17/2025 22:08:11 Addendum Dictated By: Michael Hernadez MD Addendum Signed By: <Electronically signed by Michael Hernadez MD in OV> 04/17/252208 Addendum Cosigned By: DD/ /03/2123 TD/TT: 04/17/2505/03/2208 ADDENDUM This document has been electronically signed by: Michael Hernadez MD on 04/17/2025 21:23:50 ADDENDUM: This report was discussed with KESHA RAWLS RN on Apr 17, 2025 21:25:00 EDT. This document has been electronically signed by: Annamaria Monroe on 04/17/2025 21:28:49 Addendum Dictated By: Michael Hernadez MD Addendum Signed By: <Electronically signed by Michael Hernadez MD in OV> 04/17/252128 Addendum Cosigned By: DD/ /03/2123 TD/TT: 04/17/2505/03/2128 CLINICAL HISTORY: severe shoulder pain CT right shoulder without contrast Comparison: CR - XR SHOULDER RT MIN 2V - 03/11/25 08:[address]/MI/SR - CT SHOULDER RT WO IV CON - 01/05/25 10:37 EDT Findings: Large amount of gas and fluid within the subdeltoid space with surrounding muscular edema. Previously there was only a small amount of fluid with no gas. There is likely at least a small glenohumeral joint effusion. Likely present on the prior. There is lytic change at the acromioclavicular joint. This is new. There is also an incidental os acromiale noted. Severe glenohumeral degenerative change. No acute fracture or dislocation. Right lung clear. No foreign body. Impression: 1. Large amount of gas and fluid within the subdeltoid space suggesting infection with a gas-forming organism. 2. Lytic change at the acromioclavicular joint suggesting a septic joint. This document has been electronically signed by: Michael Hernadez MD on 04/17/2025 21:23:50 Dictated By: Michael Hernadez MD Signed By: <Electronically signed by Michael Hernadez MD in OV> 04/17/252124 DD/ 22 TD/TT: 04/17/252122 Electronic Industrial Controls Mechanic: Procedure Note Donotuseinterpreter, Image - 04/17/[address] [address] [address] Scan Report Signed with Addenda Patient: Mary Lou Godwin ZMR#: [id number] : 9Acct:[id number] Age/Sex: 74 / FADM Date: 04/17/25 Loc: HO.ED Attending Dr: Ordering Physician: Kassy Barnard DO Date of Service: 04/17/25 Procedure(s): CT shoulder RT wo IV con Accession Number(s): [id number] cc: Amanda Watkins MD; Kassy Barnard DO Report Number: [id number]: Total DLP = 476.00 mGy-cm Reason for Exam: severe shoulder pain ADDENDUM This document has been electronically signed by: Annamaria Monroe on 04/17/2025 21:28:49 ADDENDUM: This report was discussed with JACKI RAMIREZ RN on Apr 17, 2025 21:25:00 EDT. This document has been electronically signed by: Annamaria Monroe on 04/17/2025 22:08:11 Addendum Dictated By: Michael Hernadez MD Addendum Signed By: <Electronically signed by MD Saundra in OV> 04/17/252208 Addendum Cosigned By: DD/ /03/2123 TD/TT: 04/17/2505/03/2208 ADDENDUM This document has been electronically signed by: Michael Hernadez MD on 04/17/2025 21:23:50 ADDENDUM: This report was discussed with KESHA RAWLS RN on Apr 17, 2025 21:25:00 EDT. This document has been electronically signed by: Annamaria Monroe on 04/17/2025 21:28:49 Addendum Dictated By: Michael Hernadez MD Addendum Signed By: <Electronically signed by MD Saundra in OV> 04/17/252128 Addendum Cosigned By: DD/ /03/2123 TD/TT: 04/17/2505/03/2128 CLINICAL HISTORY: severe shoulder pain CT right shoulder without contrast Comparison: CR - XR SHOULDER RT MIN 2V - 03/11/25 08:[address]/MI/SR - CT SHOULDER RT WO IV CON - 01/05/25 10:37 EDT Findings: Large amount of gas and fluid within the subdeltoid space with surrounding muscular edema. Previously there was only a small amount of fluid with no gas. There is likely at least a small glenohumeral joint effusion. Likely present on the prior. There is lytic change at the acromioclavicular joint. This is new. There is also an incidental os acromiale noted. Severe glenohumeral degenerative change. No acute fracture or dislocation. Right lung clear. No foreign body. Impression: 1. Large amount of gas and fluid within the subdeltoid space suggesting infection with a gas-forming organism. 2. Lytic change at the acromioclavicular joint suggesting a septic joint. This document has been electronically signed by: Michael Hernadez MD on 04/17/2025 21:23:50 Dictated By: Michael Hernadez MD Signed By: <Electronically signed by Michael Hernadez MD in OV> 04/17/252124 DD/ 22 TD/TT: 04/17/252122 Electronic Industrial Controls Mechanic: [facility] External Provider IMG CT PROCEDURES Edited Result - Final * Lactic Acid (04/17/2025 10:07 AM EDT) Lactic Acid 1.0 0.5 - 2.0 mmol/L [facility] 04/17/2025 10:0 7 AM EDT 04/17/2025 10:12 PM EDT Generic External Data Provider LAB BLOOD ORDERAB LES Final Result [facility] [address] [place] [phone] * (ABNORMAL) POCT HGB A1C (03/29/2025 2:06 PM EDT) Hemoglobin A1C 8.4(A) 4.0 - 5.7 % QC Media Lot # [id number] Lot# Expiration Date Blood 03/29/2025 2:06 PM EDT us Amanda Myers MD POINT OF CARE TEST EN TER/EDIT ORDERABLES Final Result * (ABNORMAL) POCT Glucose (03/29/2025 2:04 PM EDT) [facility] Glucose Blood, POC 315(A) 60 - 200 mg/dL QC Media Lot # [id number] Lot# Expiration Date 075,037 Blood Capillary blood specimen / Unknown 03/29/2025 2:04 PM EDT us Amanda Myers MD POINT OF CARE TEST EN TER/EDIT ORDERABLES Final Result * (ABNORMAL) CBC auto differential (03/11/2025 8:31 AM EDT) Only the most recent of3 resultswithin the time period is included. [facility] White Blood Count 8.5 4.8 - 10.8 X10*3/uL [facility] Red Blood Count 3.71(L) 4.20 - 5.50 X10*6/uL [facility] Hemoglobin 8.4(L) 12.0 - 16.0 g/dl [facility] Hematocrit 28.3(L) 37.0 - 47.0 % [facility] Mean Corpuscular Volume 76.3(L) 80.0 - 98.0 fL [facility] Mean Corpuscular Hemoglobin 22.6(L) 27.0 - 33.0 pg [facility] Mean Corpuscular HGB Conc 29.7(L) 31.0 - 35.0 g/dl [facility] Red Cell Distribution Width 20.6(H) 11.0 - 16.0 % [facility] Platelet Count 348 160 - 400 X10*3/uL [facility] Mean Platelet Volume 9.2(L) 9.4 - 12.3 fL [facility] Neutrophils Percent Auto 74.2(H) 45 - 73 % [facility] Imm Gran Pct Auto 1.2(H) 0.0 - 0.4 % [facility] Lymphocytes Percent Auto 10.9(L) 20 - 40 % [facility] Monocytes Percent Auto 11.3(H) 2 - 11 % [facility] Eosinophils Percent Auto 1.8 0 - 4 % [facility] Basophils Percent Auto 0.6 0 - 2 % [facility] NRBC Pct Auto 0.0 0.0 - 0.2 /100WBC [facility] Neutrophils Absolute Auto 6.3 2.0 - 8.3 x10*3/uL [facility] Imm Gran Abs Auto 0.10(H) 0.00 - 0.03 X10*3/uL [facility] Lymphocytes Absolute Auto 0.9(L) 1.2 - 4.9 X10*3/uL [facility] Monocytes Absolute Auto 1.0 0.1 - 1.2 X10*3/uL [facility] Eosinophils Absolute Auto 0.2 0.0 - 0.4 X10*3/uL [facility] Basophils Absolute Auto 0.1 0.0 - 0.2 X10*3/uL [facility] NRBC Abs Auto 0.000 0.0 - 0.012 X10*3/uL [facility] 03/11/2025 8:31 AM EDT 03/11/2025 8:33 AM EDT us Generic External Data Provider LAB BLOOD ORDERAB LES Final Result [facility] [address] [place] [phone] * (ABNORMAL) Basic Metabolic Panel (03/11/2025 8:31 AM EDT) Only the most recent of2 resultswithin the time period is included. Sodium 136 135 - 145 mmol/L [facility] Potassium 4.4 3.3 - 5.1 mmol/L [facility] Chloride 98 96 - 108 mmol/L [facility] Carbon Dioxide 32(H) 22 - 29 mmol/L [facility] Anion Gap 10(L) 12 - 20 [facility] Urea Nitrogen (BUN) 17(H) 9 - 16 mg/dL [facility] Creatinine, Serum 1.16 0.5 - 1.4 mg/dL [facility] Creatinine Clr Calc Pharmacy 48.9 [facility] Comment:Provided height and weight: 154.94 cm,113.2 kg.eGFR (calculated from the MDRD study equation) and eCrCl(calculated from the Cockcroft-Gault equation) are based ondifferent parameters and may not yield comparable results.If eCrCl result is absurd, please check patient'sheight/weight. Estimated Glomerular Filt Rate 46 [facility] Comment:Chronic Kidney Disea se: Estimated GFR < 60 mL/min/1.08q9Oydzuy Kidney Disease: Estimated GFR < 15 mL/min/1.73m2 Glucose 332(H) 60 - 115 mg/dL [facility] Calcium 8.3(L) 8.4 - 10.2 mg/dL [facility] 03/11/2025 8:31 AM EDT 03/11/2025 8:33 AM EDT us Generic External Data Provider LAB BLOOD ORDERAB LES Final Result [facility] [facility] [address] [place] [phone] * XR Shoulder 2+ Views Right (03/11/2025 8:21 AM EDT) Only the most recent of3 resultswithin the time period is included. Anatomical Region Laterality Modality Upper Extremities, Shoulder Right Radi ographic Imaging 03/11/2025 8:21 AM EDT Narrative 03/11/2025 8:23 AM EDT [place] [address] XRay Report Signed Patient: Mary Lou Godwin MR#: [id number] : 1950 Acct:[id number] Age/Sex: 74 / F ADM Date: 03/11/25 Loc: HO.ED Attending Dr: Ordering Physician: Yelena Alvarez MD Date of Service: 03/11/25 Procedure(s): XR shoulder RT min 2V Accession Number(s): [id number] cc: Amanda Watkins MD; Yelena Alvarez MD [...] in OV> 03/11/25821 DD/ 0 TD/TT: 03/11/25820 Electronic Industrial Controls Mechanic: Procedure Note Donotuseinterpreter, Image - 03/11/2025 [place] [address] XRay Report Signed Patient: Mary Lou Godwin ZMR#: M [id number] : 9Acct:[id number] Age/Sex: 74 / FADM Date: 03/11/25 Loc: HO.ED Attending Dr: Ordering Physician: Yelena Alvarez MD Date of Service: 03/11/25 Procedure(s): XR shoulder RT min 2V Accession Number(s): [id number] cc: Amanda Watkins MD; Yelena Alvarez MD [...] in OV> 03/11/25821 DD/ 0 TD/TT: 03/11/25820 Electronic Industrial Controls Mechanic: [facility] External Provider IMG XR PROCEDURES Edited Result - Final * High Sensitivity Troponin I (03/09/2025 3:33 PM EDT) Only the most recent of3 resultswithin the time period is included. TROPONIN I HIGH SENSITIVITY 11.0 <3.5 - 17.0 ng/L [facility] Comment:The Augustin high sens itivity Troponin-I results should beused in conjunction with other diagnostic information suchas ECG, clinical observations and information, and patientsymptoms to aid in the diagnosis of IA. 03/09/2025 3:33 PM EDT 03/09/2025 3:42 PM EDT Generic External Data Provider LAB BLOOD ORDERAB LES Final Result [facility] [address] [place] [phone] * SARS-CoV-2 RNA, Influenza A/B, and RSV RNA, Ql NAAT (03/09/2025 3:33 PM EDT) Influenza A PCR NEGATIVE Negative [facility] Influenza B PCR NEGATIVE Negative [facility] Resp Syncy Virus RNA Qual PCR NEGATIVE Negative [facility] SARS COV2 PCR NEGATIVE Negative [facility] Comment:All test results mus t be [...] use by authorized laboratories.Testing performed on the [employer] GeneXpert utilizingreal-time RT-PCR.All SARS CoV2 and positive influenza A/B results arereported to [facility]. 03/09/2025 3:33 PM EDT 03/09/2025 3:42 PM EDT Generic External Data Provider LAB MICROBIOLOGY - GENERAL ORDERABLES Final Result Performing Organization Address [facility] de Phone Number [facility] [address] [place] [phone] * (ABNORMAL) C-reactive Protein (03/09/2025 3:33 PM EDT) C Reactive Protein 4.69(H) < or = 0.50 mg/dL [facility] 03/09/2025 3:33 PM EDT 03/09/2025 3:42 PM EDT Generic External Data Provider LAB BLOOD ORDERAB LES Final Result Performing Organization Address [facility] de Phone Number [facility] [address] [place] [address] [phone] * (ABNORMAL) Uric acid (03/09/2025 3:33 PM EDT) Uric Acid 7.8(H) 2.4 - 5.7 mg/dL [facility] 03/09/2025 3:33 PM EDT 03/09/2025 3:42 PM EDT Generic External Data Provider LAB BLOOD ORDERAB LES Final Result Performing Organization Address [facility]/ZIP Co de Phone Number [facility] [address] [place] [address] [phone] * Magnesium (03/09/2025 3:33 PM EDT) Pathologist [facility] Magnesium 1.8 1.6 - 2.6 mg/dL [facility] 03/09/2025 3:33 PM EDT 03/09/2025 3:42 PM EDT Generic External Data Provider LAB BLOOD ORDERAB LES Final Result Performing Organization Address [facility] Co de Phone Number [facility] [address] [place] [address] [phone] * (ABNORMAL) Hepatic Function Panel (03/09/2025 3:33 PM EDT) Pathologist [facility] Bilirubin, Total 0.3 0.0 - 1.0 mg/dL [facility] Bilirubin, Direct 0.1 0.0 - 0.5 mg/dL [facility] Aspartate Amino Transferase 22 5 - 31 U/L [facility] Alanine Aminotransferase <6 0 - 31 U/L [facility] Total Protein 6.7 6.5 - 8.0 g/dL [facility] Albumin Level 2.9(L) 3.5 - 5.0 g/dL [facility] Alkaline Phosphatase 74 39 - 117 U/L [facility] 03/09/2025 3:33 PM EDT 03/09/2025 3:42 PM EDT Generic External Data Provider LAB BLOOD ORDERAB LES Final Result Performing Organization Address [facility] de Phone Number [facility] [address] [place] [phone] * CT Abdomen Pelvis w/ Contrast (03/03/2025 9:15 PM EDT) Anatomical Region Laterality Modality Body, Pelvis, Abdomen Computed T omography 03/03/2025 9:15 PM EDT Narrative 03/03/2025 9:17 PM EDT [place] [address] CT Scan Report Signed Patient: Mary Lou Godwin MR#: M [id number] : 1950 Acct:[id number] Age/Sex: 74 / F ADM Date: 03/03/25 Loc: HO.ED Attending Dr: Ordering Physician: Ingris Song PA-C Date of Service: 03/03/25 Procedure(s): CT abdomen pelvis w IV con Accession Number(s): [id number] cc: Ingris Song PA-C; Amanda Watkins MD Report Number: [id number]: Total DLP = 1159.00 mGy-cm CLINICAL HISTORY: [...] in OV> 03/03/252115 DD/ 14 TD/TT: 03/03/252114 Electronic Industrial Controls Mechanic: Procedure Note Rayter, Image - 03/03/[address] [address] [address] Scan Report Signed Patient: Mary Lou Godwin ZMR#: M [id number] : 9Acct:[id number] Age/Sex: 74 / FADM Date: 03/03/25 Loc: HO.ED Attending Dr: Ordering Physician: Ingris Song PA-C Date of Service: 03/03/25 Procedure(s): CT abdomen pelvis w IV con Accession Number(s): [id number] cc: Ingris Song PA-C; Amanad Watkins MD Report Number: [id number]: Total DLP = 1159.00 mGy-cm CLINICAL HISTORY: [...] in OV> 03/03/252115 DD/ 14 TD/TT: 03/03/252114 Electronic Industrial Controls Mechanic: [facility] External Provider IMG CT PROCEDURES Edited Result - Final * OBSX1 (03/03/2025 8:16 PM EDT) OBS1 NEGATIVE NEGATIVE [facility] 03/03/2025 8:16 PM EDT 03/03/2025 8:20 PM EDT Generic External Data Provider LAB BLOOD ORDERAB LES Final Result Performing Organization Address City/State/[facility] Co de Phone Number [facility] [address] [place] [address] [phone] * XR Chest 1 View (03/03/2025 6:57 PM EDT) Anatomical Region Laterality Modality Chest Radiographic Franca ging 03/03/2025 6:57 PM EDT Narrative 03/03/2025 6:59 PM EDT [address] [address] XRay Report Signed Patient: Mary Lou Godwin MR#: M [id number] : 1950 Acct:[id number] Age/Sex: 74 / F ADM Date: 03/03/25 Loc: HO.ED Attending Dr: Ordering Physician: Ingris Song PA-C Date of Service: 03/03/25 Procedure(s): XR chest 1V Accession Number(s): [id number] cc: Ingris Song PA-C; Amanda Watkins MD CLINICAL HISTORY: SOB Chest Radiograph Comparison: 08/22/24 Findings: Cardiomegaly. Normal mediastinal contours. No pneumothorax. No opacity. No pleural effusion. Normal upper abdomen. No acute fracture. Impression: No acute findings. This document has been electronically signed by: Amanda Forbes MD on 03/03/2025 18:57:10 Dictated By: Amanda Pagan MD Signed By: <Electronically signed by mAanda Pagan MD in OV> 03/03/251857 DD/ 56 TD/TT: 03/03/251856 Electronic Industrial Controls Mechanic: Procedure Note Donotuseinterpreter, Image - 03/03/[address] [address] XRay Report Signed Patient: Mary Lou Godwin ZMR#: M [id number] : 9Acct:[id number] Age/Sex: 74 / FADM Date: 03/03/25 Loc: .ED Attending Dr: Ordering Physician: Ingris Song PA-C Date of Service: 03/03/25 Procedure(s): XR chest 1V Accession Number(s): [id number] cc: Ingris Song PA-C; Amanda Watkins MD [...] in OV> 03/03/251857 DD/ 56 TD/TT: 03/03/251856 Electronic Industrial Controls Mechanic: [facility] External Provider IMG XR PROCEDURES Edited Result - Final * (ABNORMAL) Iron And Total Iron Binding Capacity (03/03/2025 5:30 PM EDT) Iron 10(L) 30 - 160 mcg/dL [facility] Total Iron Binding Capacity 209(L) 228 - 428 mcg/dL [facility] Percent Iron Saturation 5(L) 15 - 50 % [facility] Unsaturated Iron Binding 199 ug/dL [facility] 03/03/2025 5:30 PM EDT 03/03/2025 5:35 PM EDT Generic External Data Provider LAB BLOOD ORDERAB LES Final Result Performing Organization Address [facility]/ZIP Co de Phone Number [facility] [address] [place] [phone] * (ABNORMAL) B Type Natriuretic Peptide (BNP) (03/03/2025 5:30 PM EDT) [facility] B Type Natriuretic Peptide 337(H) <100 pg/mL [facility] 03/03/2025 5:30 PM EDT 03/03/2025 5:35 PM EDT [employer] External Data Provider LAB BLOOD ORDERAB LES Final Result Performing Organization Address [facility] de Phone Number [facility] [address] [place] [phone] * (ABNORMAL) Comprehensive Metabolic Panel (03/03/2025 5:30 PM EDT) [facility] Sodium 135 135 - 145 mmol/L [facility] Potassium 4.7 3.3 - 5.1 mmol/L [facility] Chloride 96 96 - 108 mmol/L [facility] Carbon Dioxide 30(H) 22 - 29 mmol/L [facility] Anion Gap 14 12 - 20 [facility] Urea Nitrogen (BUN) 26(H) 9 - 16 mg/dL [facility] Creatinine, Serum 1.44(H) 0.5 - 1.4 mg/dL [facility] Creatinine Clr Calc Pharmacy 38.6 [facility] Comment:Provided height and weight: 152.4 cm,112.9 kg.eGFR (calculated from the MDRD study equation) and eCrCl(calculated from the Cockcroft-Gault equation) are based ondifferent parameters and may not yield comparable results.If eCrCl result is absurd, please check patient'sheight/weight. Estimated Glomerular Filt Rate 35 [facility] Comment:Chronic Kidney Disea se: Estimated GFR < 60 mL/min/1.51v6Atiugq Kidney Disease: Estimated GFR < 15 mL/min/1.73m2 Glucose 370(HH) 60 - 115 mg/dL [facility] Comment:Critical value for t est(s): GLUR Results called to and readback by: NORMAN Person calling: ZHAO Date: 03/03/25 Time:1800 Calcium 7.9(L) 8.4 - 10.2 mg/dL [facility] Bilirubin, Total 0.3 0.0 - 1.0 mg/dL [facility] Aspartate Amino Transferase 17 5 - 31 U/L [facility] Alanine Aminotransferase <6 0 - 31 U/L [facility] Total Protein 6.7 6.5 - 8.0 g/dL [facility] Albumin Level 2.8(L) 3.5 - 5.0 g/dL [facility] Alkaline Phosphatase 73 39 - 117 U/L [facility] 03/03/2025 5:30 PM EDT 03/03/2025 5:35 PM EDT us Generic External Data Provider LAB BLOOD ORDERAB LES Final Result [facility] [address] [place] [phone] * (ABNORMAL) Lipid Panel, Standard (09/01/2024 2:09 PM EST) Triglycerides 241(H) <150 mg/dL [facility] Comment:Desirable Triglyceri de: less than 150 mg/dLBorderline High Triglyceride 150-199 mg/dLHigh Triglyceride: 200-499 mg/dLVery High Triglyceride: greater than or equal to 5OO mg/dL Cholesterol 107 <200 mg/dL [facility] Comment:Desirable Cholestero l: less than 200 mg/dLBorderline High Cholesterol: 200-239 mg/dLHigh Cholesterol: greater than 239 mg/dL LDL Cholesterol Calculated 34 <100 mg/dL [facility] Comment:Desirable LDL: less than 100 mg/dLNear Optimal/Above Optimal LDL: 110- 129 mg/dLBorderline High LDL: 130-159 mg/dLHigh LDL: 160-189 mg/dLVery High LDL: greater than or equal to 190 mg/dL HDL Cholesterol 25(L) >40 mg/dL [facility] Comment:Desirable HDL: great er than 40 mg/dL Note: This HDL assay may give artificially low results in patients with liver disease. 09/01/2024 2:09 PM EST 09/01/2024 4:09 PM EST us Amanda Myers MD LAB BLOOD ORDERABLES Final Result Performing Organization Address City/[facility]/ZIP Co de Phone Number [facility] [address] [place] [address] [phone] * (ABNORMAL) ALBUMIN, RANDOM URINE W/CREATININE [...] DO LAB URINE ORDERABLES Final R esult [facility] [address] [place] [address], from Last 3 Months or Most Recently Relevant to Health Maintenance Insurance [facility] DETENTION OPTIONS (HMO D-SNP) [facility] Care Teams Clothing Cutter Relationship Specialty Start Date End Date Amanda Watkins MD [address] [place] [phone] PCP - General Family Medicine 04/07/19 Hiro Ram FNP [address] [place] [address] Nurse Practitioner Family Medicine 07/06/23 Raad Arias, PharmD [address] [place] [address] Pharmacist Internal Medicine 10/19/24 [facility] 03/08/25
--- OUTSIDE RECORDS SUMMARY | 2025-04-27 12:27 | XMS_ITS | Encounter Summary ---
Author Organization [employer] Address [address] [facility] 7t [place] [address] Care Team Providers Care Teradata Solution Architect Name Role Phone Amanda Watkins MD Primary Care Provide r Hiro Ram AUTOMATIC PUNCH PRESS OPERATOR Unavailable Unavailable Raad Arias PharmD Unavailable [phone] Reason for Visit * Reason Onset Date Comments Referral 03/20/2025 Encounter Details Date Type Department Care Team ([facility] st Contact Info) Description 03/20/2025 Telephone [facility] [address] [place] [address] Amanda Watkins MD [address] [place], [place] [phone] Referral Social History Tobacco Use Types Packs/Day [...] 03/20/2025 10:11 AM EDT TC from [place] ([facility]) requesting new referral for Endocrinology. Contact pt at [phone] Need sole inker documented in this encounter Plan of Treatment Upcoming Encounters Date Type Department Care Team (Late st Contact Info) Description 04/30/2025 2:30 PM EDT Medication Management [facility] [address] [place] [phone] Raad Arias, PharmD [address] [place] [phone] 05/08/2025 10:15 AM EDT Office Visit [facility] [address] [place] [phone] Amanda Watkins MD [address] [place] [phone] 07/09/2025 3:30 PM EST Office Visit [facility] [address] [place] [address] Amanda Watkins MD [address] [place] [address] documented as of this encounter Visit Diagnoses Not on filedocumented in this encounter Additional Health Concerns Assessment Noted Time PHQ-9 Depression Total Score: 14 025 2:41 PM EDT documented as of this encounter Care Teams Teradata Solution Architect Relationship Specialty Start Date End Date Amanda Watkins MD [address] [place] [phone] PCP - General Family Medicine 04/07/19 Hiro Ram FNP [address] [place] [address] Nurse Practitioner Family Medicine 07/06/23 Raad Arias, Carlos [address] [place] [address] Pharmacist Internal Medicine 10/19/24 [facility] 03/08/25 documented as of this encounter
--- OUTSIDE RECORDS SUMMARY | 2025-04-27 12:27 | XMS_ITS | Clinical Summary ---
Author Organization [facility] Address [address] [place] [phone] Phone Care Team Providers Care Bowling Floor Desk Clerk Name Role Phone Amanda Watkins MD Primary [...] 12/06/2023, 07/16/2016, 02/17/2013, Additional history exists Insurance [facility] MCR ([id number]) CARLOS LOPES [id number] [place] [address] [facility] ([id number]) CARLOS LOPES [id number] Care Teams Bowling Floor Desk Clerk Relationship Specialty Start Date End Date Amanda Watkins MD [address] [place] [phone] PCP - General Internal Medicine 03/01/23
--- OUTSIDE RECORDS SUMMARY | 2025-04-27 12:27 | XMS_ITS | Patient Health Record ---
Author Organization [facility] Address [address] [facility] [address] [place] [phone] Care Team Providers Care Painter Rough Name Role Phone Amanda Adame M.D. Primary Care Provider João Woodward Jr Results Component Value Reference Range Notes Pathology Reviewed date:03/21/2025 08:46:31 AM Interpretation: Performing Lab:[facility], [address] [place] [phone] Notes/Report: Reason For Referral No Information Problems Problem Type SNOMED Code ICD Code Onset Dates Problem Status W/U Status Risk Notes Problem Iron deficiency anemia (51381593) Iron deficiency anemia (D50.9) Active confirmed Problem Gastritis (9470552) Gastritis (K29.70) Active confirmed Encounters Encounter Location Date Provider Diagnosis [facility] [place] [address] [place] [phone] 03/06/2025 João Leon Jr [facility] [address] [place] [phone] 03/21/2025 Jãoo Leon Jr Plan Of Treatment Next Appt Details Provider Name:João yañez Jr, 07/26/2025 02:15:00 PM, [address] [facility], [address], [place], [phone], Insurance Providers Payer Name Payer Address Payer Phone Subscriber Number Group Number Insured Name Patient Relationship to Insured Coverage Start Date Coverage End Date [facility] [address] Attn Claims CARLOS Varma [id number] JP MORGAN Self - patient is the insured
--- OUTSIDE RECORDS SUMMARY | 2025-04-27 12:27 | XMS_ITS | Encounter Summary ---
Author Organization [employer] Address [address] [facility] 7t [place] [address] Care Team Providers Care Osteology Teacher Name Role Phone Amanda Watkins MD Primary Care Provide r Hiro Ram DIE SINKER Unavailable Unavailable Raad Arias PharmD Unavailable [phone] Reason for Visit * Reason Comments Med Refill Encounter Details Date Type Department Care Team (Late st Contact Info) Description 09/27/2024 Refill [facility] [address] [place] [address] Ann Kulkarni DO [address] [place] [address] Social History Tobacco Use Types Packs/Day Years [...] Description 04/30/2025 2:30 PM EDT Medication Management [address] [phone] Raad Arias, PharmD [address] [place] [address] 05/08/2025 10:15 AM EDT Office Visit [address] [address] Amanda Watkins MD [address] [place] [address] 07/09/2025 3:30 PM EST Office Visit [address] [address] Amanda Watkins MD [address] [place] [phone] documented as of this encounter Visit Diagnoses Not on filedocumented in this encounter Additional Health Concerns Assessment Noted Time PHQ-9 Depression Total Score: 0 09/01/19 25 1:18 PM EST documented as of this encounter Care Teams Osteology Teacher Relationship Specialty Start Date End Date Amanda Watkins MD [address] [place] [address] PCP - General Family Medicine 04/07/19 Hiro Ram FNP [address] [place] [phone] Nurse Practitioner Family Medicine 07/06/23 Raad Arias, TheaD [address] [place] [phone] Pharmacist Internal Medicine 10/19/24 Ja [facility] 08/10/24 03/12/25 [facility] 03/08/25 documented as of this encounter
--- OUTSIDE RECORDS SUMMARY | 2025-04-27 12:27 | XMS_ITS | Encounter Summary ---
Author Organization [employer] Address [address] [facility] 7t [place] [address] Care Team Providers Care Supply Technician Name Role Phone Amanda Watkins MD Primary Care Provide r Hiro Ram CONCRETE PUMP OPERATOR Unavailable Unavailable Raad Arias PharmD Unavailable [phone] Reason for Visit * Reason Onset Date Comments Durable Medical Equipment 01/09/2025 Encounter Details Date Type Department Care Team (Late st Contact Info) Description 01/09/2025 Telephone [facility] [address] [place] [address] Amanda Watkins MD [address] [place] [address] Durable Medical Equipment Social History Tobacco Use [...] Description 04/30/2025 2:30 PM EDT Medication Management [facility] [address] [address] Raad Arias, PharmD [address] [place] [address] 05/08/2025 10:15 AM EDT Office Visit [facility] [address] [place] [address] [phone] Amanda Watkins MD [address] [facility] [place], [place] [phone] 07/09/2025 3:30 PM EST Office Visit [facility] [address] [facility] [place], [place] [phone] Amanda Watkins MD [address] [place], [place] [phone] documented as of this encounter Visit Diagnoses Not on filedocumented in this encounter Additional Health Concerns Assessment Noted Time PHQ-9 Depression Total Score: 0 09/01/19 1:18 PM EST documented as of this encounter Care Teams Supply Technician Relationship Specialty Start Date End Date Amanda Watkins MD [address] [place], [place] [phone] PCP - General Family Medicine 04/07/19 Hiro Ram FNP [address] [place] [address] Nurse Practitioner Family Medicine 07/06/23 Raad Arias, TheaD [address] [place] [address] [phone] Pharmacist Internal Medicine 10/19/24 Ja [facility] 08/10/24 03/12/25 [facility] 03/08/25 documented as of this encounter
--- OUTSIDE RECORDS SUMMARY | 2025-04-27 12:27 | XMS_ITS | Encounter Summary ---
Author Organization [employer] Address 75 [facility] 7t [place] [address] Care Team Providers Care Metal Machinist Name Role Phone Amanda Watkins MD Primary Care Provide r Hiro Ram MULTIPLE DRILL OPERATOR Unavailable Unavailable Raad Arias PharmD Unavailable [phone] Reason for Visit * Reason Comments Med Refill Encounter Details Date Type Department Care Team (Late st Contact Info) Description 10/10/2024 Refill [facility] CHC MED & PEDS [address] [place] [address] Amanda Watkins MD [address] [place] [address] Social History Tobacco Use Types Packs/Day Years [...] Description 04/30/2025 2:30 PM EDT Medication Management [address] [address] Raad Arias, PharmD [address] [place] [address] 05/08/2025 10:15 AM EDT Office Visit [address] [address] Amanda Watkins MD [address] [place] [address] 07/09/2025 3:30 PM EST Office Visit [address] [address] Amanda Watkins MD [address] [place] [address] documented as of this encounter Visit Diagnoses Not on filedocumented in this encounter Additional Health Concerns Assessment Noted Time PHQ-9 Depression Total Score: 0 09/01/19 25 1:18 PM EST documented as of this encounter Care Teams Metal Machinist Relationship Specialty Start Date End Date Amanda Watkins MD [address] [place] [address] PCP - General Family Medicine 04/07/19 Hiro Ram FNP [address] [place] [address] Nurse Practitioner Family Medicine 07/06/23 Raad Arias, TheaD [address] [place] [address] Pharmacist Internal Medicine 10/19/24 Ja [facility] 08/10/24 03/12/25 [facility] 03/08/25 documented as of this encounter
--- OUTSIDE RECORDS SUMMARY | 2025-04-27 12:28 | XMS_ITS | Encounter Summary ---
Author Organization [employer] Address 75 [facility] 7t [place] [address] Care Team Providers Care Ob Gyn Physician Assistant Name Role Phone Amanda Watkins MD Primary Care Provide r Hiro Ram EXPRESS CLERK Unavailable Unavailable Raad Arias PharmD Unavailable [phone] Encounter Details Date Type Department Care Team (Late st Contact Info) Description 12/22/2024 Orders Only [facility] MEDICINE [address] [place] [address] Amanda Watkins MD [address] [place] [address] Social History Tobacco Use Types Packs/Day Years [...] Description 04/30/2025 2:30 PM EDT Medication Management [address] [address] Raad Arias, PharmD [address] [place] [address] 05/08/2025 10:15 AM EDT Office Visit [address] [address] Amanda Watkins MD [address] [place] [address] 07/09/2025 3:30 PM EST Office Visit [address] [address] Amanda Watkins MD [address] [place] [address] documented as of this encounter Procedures Procedure [...] AM EDT Narrative 01/05/2025 9:59 AM EDT [address] [address] XRay Report Signed Patient: Mary Lou Godwin MR#: [id number] : 1950 Acct:[id number] Age/Sex: 74 / F ADM Date: 01/05/25 Loc: .ED Attending Dr: Ordering Physician: Yelena Alvarez MD Date of Service: 01/05/25 Procedure(s): XR humerus RT Accession Number(s): [id number] cc: Amanda Watkins MD; Yelena Alvarez MD [...] Hammer MD in OV> 01/05/25 0956 DD/ TD/TT: 01/05/25 0948 Cleaning Professional: Procedure Note Donotuseinterpreter, Image - 01/05/[address] [address] XRay Report Signed Patient: Mary Lou Godwin ZMR#: M [id number] : 1950cct:[id number] Age/Sex: 74 / FADM Date: 01/05/25 Loc: HO.ED Attending Dr: Ordering Physician: Yelena Alvarez MD Date of Service: 01/05/25 Procedure(s): XR humerus RT Accession Number(s): [id number] cc: Amanda Watkins MD; Yelena Alvarez MD [...] Hammer MD in OV> 01/05/25 0956 DD/ TD/TT: 01/05/25 0948 Cleaning Professional: [facility] External Provider IMG XR PROCEDURES Edited Result - Final * XR Shoulder 2+ Views Right (01/05/2025 8:27 AM EDT) Anatomical Region Laterality Modality Upper Extremities, Shoulder Right Radi ographic Imaging 01/05/2025 8:27 AM EDT Narrative 01/05/2025 9:59 AM EDT [address] [address] XRay Report Signed Patient: Mary Lou Godwin Z MR#: M [id number] : 1950 Acct:[id number] Age/Sex: 74 / F ADM Date: 01/05/25 Loc: HO.ED Attending Dr: Ordering Physician: Yelena Alvarez MD Date of Service: 01/05/25 Procedure(s): XR shoulder RT min 2V Accession Number(s): [id number] cc: Amanda Watkins MD; Yelena Alvarez MD [...] Dilip Hammer MD 01/05/2025 09:56 AM EDT Workstation: [id number] Dictated By: Dilip Hammer MD Signed By: <Electronically signed by Dilip Hammer MD in OV> 01/05/2556 DD/ 6 TD/TT: 01/05/25947 Cleaning Professional: Procedure Note Donotuseinterpreter, Image - 01/05/[address] [address] XRay Report Signed Patient: Mary Lou Godwin ZMR#: [id number] : 9Acct:[id number] Age/Sex: 74 / FADM Date: 01/05/25 Loc: .ED Attending Dr: Ordering Physician: Yelena Alvarez MD Date of Service: 01/05/25 Procedure(s): XR shoulder RT min 2V Accession Number(s): [id number] cc: Amanda Watkins MD; Yelena Alvarez MD [...] in OV> 01/05/2556 DD/ 6 TD/TT: 01/05/25947 Cleaning Professional: [facility] External Provider IMG XR PROCEDURES Edited Result - Final * XR Elbow 1-2 Views Right (01/05/2025 8:27 AM EDT) Anatomical Region Laterality Modality Upper Extremities, Elbow Right Radiogr aphic Imaging 01/05/2025 8:27 AM EDT Narrative 01/05/2025 9:57 AM EDT [address] [address] XRay Report Signed Patient: Mary Lou Godwin MR#: M [id number] : 1950 Acct:[id number] Age/Sex: 74 / F ADM Date: 01/05/25 Loc: .ED Attending Dr: Ordering Physician: Yelena Alvarez MD Date of Service: 01/05/25 Procedure(s): XR elbow RT 2V Accession Number(s): [id number] cc: Amanda Watkins MD; Yelena Alvarez MD [...] in OV> 01/05/25 0954 DD/ 6 TD/TT: 01/05/25947 Cleaning Professional: Procedure Note Donotuseinterpreter, Image - 01/05/2025 [facility] [address] [place] [address] XRay Report Signed Patient: Mary Lou Godwin ZMR#: M [id number] : 9Acct:[id number] Age/Sex: 74 / FADM Date: 01/05/25 Loc: HO.ED Attending Dr: Ordering Physician: Yelena Alvarez MD Date of Service: 01/05/25 Procedure(s): XR elbow RT 2V Accession Number(s): [id number] cc: Amanda Watkins MD; Yelena Alvarez MD [...] Dilip Hammer MD 01/05/2025 09:54 AM EDT Dictated By: Dilip Hammer MD Signed By: <Electronically signed by Dilip Hammer MD in OV> 01/05/25 0954 DD/ 0827 TD/TT: 01/05/25 0948 Cleaning Professional: [facility] External Provider IMG XR PROCEDURES Edited Result - Final documented in this encounter Visit Diagnoses Not on filedocumented in this encounter Additional Health Concerns Assessment Noted Time PHQ-9 Depression Total Score: 0 09/01/19 25 1:18 PM EST documented as of this encounter Care Teams Ob Gyn Physician Assistant Relationship Specialty Start Date End Date Amanda Watkins MD [address] [place] [address] PCP - General Family Medicine 04/07/19 Hiro Ram FNP [address] [place] [address] Nurse Practitioner Family Medicine 07/06/23 Raad Arias, PharmD [address] [place] [address] Pharmacist Internal Medicine 10/19/24 Ja [facility] 08/10/24 03/12/25 [facility] 03/08/25 documented as of this encounter
--- OUTSIDE RECORDS SUMMARY | 2025-04-27 12:28 | XMS_ITS | Encounter Summary ---
Author Organization [employer] Address 75 [facility] 7t [place] [address] Care Team Providers Care Sample Tailor Name Role Phone Amanda Watkins MD Primary Care Provide r Hiro Ram ASSIGNMENT MANAGER Unavailable Unavailable Raad Arias PharmD Unavailable [phone] Reason for Visit * Reason Comments Pre-visit Planning HDF scheduled. Encounter Details Date Type Department Care Team ([facility] st Contact Info) Description 04/23/2025 Patient Outreach [facility] CHC MED & PEDS [address] [place] [address] Amanda Watkins MD [address] [place] [address] Pre-visit Planning (HDF scheduled. ) Social History Tobacco Use Types Packs/Day [...] encounter Miscellaneous Notes * Significant Event - Keya Crocker - 04/23/2025 1:13 PM EDT 04/23/25 1312 Hospital Discharges and Admission for [facility] Type of Visit Hospital Admission Date of Admission/Visit 04/17/25 Date of Discharge 04/20/25 Facility [facility] [place] Diagnosis Rt septic shoulder Disposition Discharged Home Follow-Up Actions Follow-Up Needed Provider appointment Follow-Up Outcome Spoke to Patient;Booked Appointment Initial Contact Date 04/23/25 OLIVER Barney placed outbound call to patient for HDF outreach. Patient's name and were confirmed. Patient educated on the importance of follow up with provider following inpatient admission. Patient offered an HDF appt. Patient is agreeable to an appointment and has been scheduled for 05/08 at10:15am with Dr. Adame. Patient provided with education on contacting the Health Center with anyquestions or concerns prior to the scheduled appointment. Patient educated on extended clinic hourson Mondays and Wednesdays, and Walk-In Urgent Care Located in [facility]. Patient provided with after-hours line for [facility], , which offer night time triage service and option to transfer to aviation medicine specialist provider if needed. CC scanned discharge summary into patient's chart. Biggest concern for appointment at this time is no concerns. Appropriate screenings completed in anticipation of appointment. documented in this encounter Plan of Treatment Upcoming Encounters Date Type Department Care Team (Late st Contact Info) Description 04/30/2025 2:30 PM EDT Medication Management [address] [address] Raad Arias, Carlos [address] [place] [address] 05/08/2025 10:15 AM EDT Office Visit [address] [address] Amanda Watkins MD [address] [place] [address] 07/09/2025 3:30 PM EST Office Visit [address] [address] Amanda Watkins MD [address] [place] [address] documented as of this encounter Visit Diagnoses Not on filedocumented in this encounter Additional Health Concerns Assessment Noted Time PHQ-9 Depression Total Score: 14 025 2:41 PM EDT documented as of this encounter Care Teams Sample Tailor Relationship Specialty Start Date End Date Amanda Watkins MD [address] [place] [address] PCP - General Family Medicine 04/07/19 Hiro Ram FNP [address] [place] [address] Nurse Practitioner Family Medicine 07/06/23 Raad Arias, PharmD [facility] [place] [address] Pharmacist Internal Medicine 10/19/24 [facility] 03/08/25 documented as of this encounter
--- OUTSIDE RECORDS SUMMARY | 2025-04-27 12:28 | XMS_ITS | Encounter Summary ---
Author Organization [employer] Address 75 [facility] 7t [place] [address] Care Team Providers Care Plastic Production Machine Setter Name Role Phone Amanda Watkins MD Primary Care Provide r Hiro Ram METAL GRADER Unavailable Unavailable Raad Arias PharmD Unavailable [phone] Reason for Visit * Reason Onset Date Comments Nurse Triage 04/17/2025 Encounter Details Date Type Department Care Team ([facility] st Contact Info) Description 04/17/2025 Telephone [facility] MEDICINE [address] [place] [address] Amanda Watkins MD [address] [place] [address] Nurse Triage Social History Tobacco Use Types [...] as alternative. Call returned to Mary Lou Cisenros to triage below at [phone]. No answer, line not available. . Call to all other alterante numbers. Left VM to return call. Number listed as contact in [facility] visit notes as [phone]. No answer, LVM to return call to [facility] triage line. Pt has my chart set [...] crying screaming in pain. Contact musa at [phone] documented in this encounter Plan of Treatment Upcoming Encounters Date Type Department Care Team (Late st Contact Info) Description 04/30/2025 2:30 PM EDT Medication Management [facility] MEDICINE [address] [place] [address] Raad Arias, PharmD [address] [place] [address] 05/08/2025 10:15 AM EDT Office Visit [address] [address] Amanda Watkins MD [address] [place] [address] 07/09/2025 3:30 PM EST Office Visit [address] [address] Amanda Watkins MD [address] [place] [address] documented as of this encounter Visit Diagnoses Not on filedocumented in this encounter Additional Health Concerns Assessment Noted Time PHQ-9 Depression Total Score: 14 025 2:41 PM EDT documented as of this encounter Care Teams Plastic Production Machine Setter Relationship Specialty Start Date End Date Amanda Watkins MD [address] [place] [address] PCP - General Family Medicine 04/07/19 Hiro Ram FNP [address] [place] [address] Nurse Practitioner Family Medicine 07/06/23 Raad Arias, TheaD [address] [place] [address] Pharmacist Internal Medicine 10/19/24 [facility] 03/08/25 documented as of this encounter
--- OUTSIDE RECORDS SUMMARY | 2025-04-27 12:28 | XMS_ITS | Encounter Summary ---
Author Organization [employer] Address 75 [facility] 7t [place] [address] Care Team Providers Care Foil Spooler Name Role Phone Amanda Watkins MD Primary Care Provide r Hiro Ram ARTIFICIAL STONE APPLICATOR Unavailable Unavailable Raad Arias PharmD Unavailable [phone] Reason for Visit * Reason Onset Date Comments Hospital Follow-up 03/23/2024 Encounter Details Date Type Department Care Team (Late st Contact Info) Description 03/23/2024 Telephone [facility] MEDICINE [address] [place] [address] Amanda Watkins MD [address] [place], [place] [phone] Hospital Follow-up Social History Tobacco Use Types [...] from pt requesting a HDF appt. Hospital: [facility] Date of admission: 03/18 Discharge date: 03/21 Diagnosed: Cellulitis documented in this encounter Plan of Treatment Upcoming Encounters Date Type Department Care Team (Late st Contact Info) Description 04/30/2025 2:30 PM EDT Medication Management [facility] MEDICINE [address] [place] [address] Raad Arias, PharmD [address] [place] [address] 05/08/2025 10:15 AM EDT Office Visit [address] [address] Amanda Watkins MD [address] [place] [address] 07/09/2025 3:30 PM EST Office Visit [address] [address] Amanda Watkins MD [address] [place] [address] documented as of this encounter Visit Diagnoses Not on filedocumented in this encounter Additional Health Concerns Assessment Noted Time PHQ-9 Depression Total Score: 10 024 3:23 PM EDT documented as of this encounter Care Teams Foil Spooler Relationship Specialty Start Date End Date Amanda Watkins MD [address] [place] [address] PCP - General Family Medicine 04/07/19 Hiro Ram FNP [address] [place] [address] Nurse Practitioner Family Medicine 07/06/23 Raad Arias, TheaD [address] [place] [phone] Pharmacist Internal Medicine 10/19/24 [facility] 07/03/22 08/16/24 Ja A 08/10/24 03/12/25 [facility] 03/08/25 documented as of this encounter
--- OUTSIDE RECORDS SUMMARY | 2025-04-27 12:28 | XMS_ITS | Encounter Summary ---
Author Organization [employer] Address 75 [facility] 7t [place] [address] Care Team Providers Care Res Habilitation Assistant Name Role Phone Amanda Watkins MD Primary Care Provide r Hiro aRm CUSTOMER CONTACT SALES ASSOCIATE Unavailable Unavailable Raad Arias PharmD Unavailable [phone] Encounter Details Date Type Department Care Team (Late st Contact Info) Description 06/27/2024 Orders Only [facility] MEDICINE [address] [place] [address] Amanda Watkins MD [address] [place] [address] Social History Tobacco Use Types Packs/Day Years [...] Description 04/30/2025 2:30 PM EDT Medication Management [address] [address] Raad Arias, PharmD [address] [place] [address] 05/08/2025 10:15 AM EDT Office Visit [address] [address] Amanda Watkins MD [address] [place] [address] 07/09/2025 3:30 PM EST Office Visit [address] [address] Amanda Watkins MD [address] [place] [address] documented as of this encounter Visit Diagnoses Not on filedocumented in this encounter Additional Health Concerns Assessment Noted Time PHQ-9 Depression Total Score: 10 024 3:23 PM EDT documented as of this encounter Care Teams Res Habilitation Assistant Relationship Specialty Start Date End Date Amanda Watkins MD [address] [place] [address] PCP - General Family Medicine 04/07/19 Hiro Ram FNP [address] [place] [address] Nurse Practitioner Family Medicine 07/06/23 Raad Arias, PharmD [address] [place] [address] Pharmacist Internal Medicine 10/19/24 [facility] 07/03/22 08/16/24 Ja A 08/10/24 03/12/25 [facility] 03/08/25 documented as of this encounter
--- OUTSIDE RECORDS SUMMARY | 2025-04-27 12:28 | XMS_ITS | Encounter Summary ---
Author Organization [employer] Address 75 [facility] 7t [place] [address] Care Team Providers Care Oyster Floater Name Role Phone Amanda Watkins MD Primary Care Provide r Hiro Ram EMAIL ADMINISTRATOR Unavailable Unavailable Raad Arias PharmD Unavailable [phone] Reason for Visit * Reason Onset Date Comments Hospital Follow-up 04/04/2024 Encounter Details Date Type Department Care Team (Late st Contact Info) Description 04/04/2024 Telephone [facility] MEDICINE [address] [place] [address] Amanda Watkins MD [address] [place], [place] [phone] Hospital Follow-up Social History Tobacco Use Types [...] from pt requesting a HDF appt. Hospital: [facility] Date of admission: 03/18 Discharge date: 03/21 Diagnosed: Cellulitis documented in this encounter Plan of Treatment Upcoming Encounters Date Type Department Care Team (Late st Contact Info) Description 04/30/2025 2:30 PM EDT Medication Management [address] [address] Raad Arias, PharmD [address] [place] [address] 05/08/2025 10:15 AM EDT Office Visit [address] [address] Amanda Watkins MD [address] [place] [address] 07/09/2025 3:30 PM EST Office Visit [address] [address] Amanda Watkins MD [address] [place] [address] documented as of this encounter Visit Diagnoses Not on filedocumented in this encounter Additional Health Concerns Assessment Noted Time PHQ-9 Depression Total Score: 10 024 3:23 PM EDT documented as of this encounter Care Teams Oyster Floater Relationship Specialty Start Date End Date Amanda Watkins MD [address] [place] [address] PCP - General Family Medicine 04/07/19 Hiro Ram FNP [address] [place] [address] Nurse Practitioner Family Medicine 07/06/23 Raad Arias, TheaD [address] [place] [address] [phone] Pharmacist Internal Medicine 10/19/24 [facility] [address] 07/03/22 08/16/24 Ja A 08/10/24 03/12/25 [facility] 03/08/25 documented as of this encounter
--- OUTSIDE RECORDS SUMMARY | 2025-04-27 12:28 | XMS_ITS | Encounter Summary ---
Author Organization [employer] Address 75 [facility] 7t [place] [address] Care Team Providers Care Tobacco Wetter Name Role Phone Amanda Watkins MD Primary Care Provide r Hiro Ram SCAN COORDINATOR Unavailable Unavailable Raad Arias PharmD Unavailable [phone] Reason for Visit * Reason Onset Date Comments Med Refill 01/03/2025 Encounter Details Date Type Department Care Team (Late st Contact Info) Description 01/03/2025 Refill [facility] MEDICINE [address] [place] [address] Amanda Waktins MD 230 [place], [place] [phone] Chronic bilateral low back pain with bilateral [...] the past 12 months, has t he [employer] gas, oil or water company threatened to [...] not with her 12/10/23 - [facility] Tele REED MAKER RV * Telephone Encounter - Sky Sánchez - 01/03/2025 1:12 PM EDT TC from pt requesting medication refill. Medications needing refill: oxyCODONE-acetaminophen (Percocet) 5-325 MG tablet To be sent to: [facility] - [place], [place] - [address] documented in this encounter Plan of Treatment Upcoming Encounters Date Type Department Care Team (Late st Contact Info) Description 04/30/2025 2:30 PM EDT Medication Management [facility] [place] [address] Raad Arias, Carlos [facility] [place] [address] 05/08/2025 10:15 AM EDT Office [address] [place] [address] Amanda Watkins MD [facility] [place] [address] 07/09/2025 3:30 PM EST Office Visit [facility] [place] [address] Amanda Watkins MD [facility] [place] documented as of this encounter Visit Diagnoses Diagnosis Chronic bilateral low back pain with bilateral sciatica documented in this encounter Additional Health Concerns Assessment Noted Time PHQ-9 Depression Total Score: 0 09/01/19 1:18 PM EST documented as of this encounter Care Teams Tobacco Wetter Relationship Specialty Start Date End Date Amanda Watkins MD [facility] [place] [address] PCP - General Family Medicine 04/07/19 Hiro Ram FNP [address] [place] [address] Nurse Practitioner Family Medicine 07/06/23 Raad Arias, PharmD [address] [place] [address] Pharmacist Internal Medicine 10/19/24 Ja [facility] 08/10/24 03/12/25 [facility] 03/08/25 documented as of this encounter
--- OUTSIDE RECORDS SUMMARY | 2025-04-27 12:28 | XMS_ITS | Encounter Summary ---
Author Organization [employer] Address 75 [facility] 7t [place] [address] Care Team Providers Care Field Enumerator Name Role Phone Amanda Watkins MD Primary Care Provide r Hiro Ram MACHINE HEEL SPRAYER Unavailable Unavailable Raad Arias PharmD Unavailable [phone] Reason for Visit * Reason Onset Date Comments Durable Medical Equipment 07/26/2024 Encounter Details Date Type Department Care Team (Late st Contact Info) Description 07/26/2024 Telephone [facility] MEDICINE [address] [place] [address] Amanda Watkins MD [address] [place] [address] Durable Medical Equipment Social History Tobacco Use [...] Description 04/30/2025 2:30 PM EDT Medication Management [facility] MEDICINE [address] [place] [address] Raad Arias, PharmD [address] [place] [address] 05/08/2025 10:15 AM EDT Office Visit [facility] MEDICINE [address] [place] [address] Amanda Watkins MD [address] [place] [address] 07/09/2025 3:30 PM EST Office Visit [address] [address] Amanda Watkins MD [address] [place] [address] documented as of this encounter Visit Diagnoses Not on filedocumented in this encounter Additional Health Concerns Assessment Noted Time PHQ-9 Depression Total Score: 10 024 3:23 PM EDT documented as of this encounter Care Teams Field Enumerator Relationship Specialty Start Date End Date Amanda Watkins MD [address] [place] [address] PCP - General Family Medicine 04/07/19 Hiro Ram FNP [address] [place] [address] Nurse Practitioner Family Medicine 07/06/23 Raad Arias, TheaD [address] [place] [address] Pharmacist Internal Medicine 10/19/24 [facility] 07/03/22 08/16/24 Ja A 08/10/24 03/12/25 [facility] 03/08/25 documented as of this encounter
--- NOTE | 2025-04-27 12:52 | MHC.OFFVIS ---
Vital Signs 04/27/25 13:00 Height 5 ft 1 in Intake Visit Reasons: PO - rt shoulder arthroscopic lavage, 04/18/25 NE Intake Note: Mary Lou is a 74 year old female who presents today for a post op appointment status post right shoulder arthroscopic debridement and lavage 04/18/25 NE. Patient reports she is having pain in her shoulder. She came into the office without her sling. Allergies codeine (CODEINE) Allergy (Intermediate, Verified 04/27/25 12:59) HALLUCINATIONS HPI HPI PO - rt shoulder arthroscopic lavage, 04/18/25 NE: Details: Ms. Sonido Cisneros is a 74-year-old female who presents to the office today status post right shoulder arthroscopic lavage on 04/18/[address] Goldsmiht. No infectious pathology was observed. Cultures were obtained in the emergency department and were negative for any growth. Patient reports that she has continued chronic right shoulder pain. She has difficulty with range of motion at baseline. [facility] Medical History Urinary incontinence (HFpEF) heart failure with preserved ejection fraction Anxiety Insomnia CKD (chronic kidney disease) CKD stage 3 due to type 2 diabetes mellitus Leg abrasion Abuse of non-prescription analgesics Type 2 diabetes mellitus with unspecified complications Other and unspecified hyperlipidemia Essential hypertension Atherosclerotic cardiovascular disease Urgency incontinence Osteoporosis Arthritis Asthma Hypertension Fibromyalgia Diabetes mellitus Surgical History H/O tubal ligation History of hernia repair Social History Household Members: Children Household Members Other:: son Housing: Apartment Are you a primary health care specialist to a significant other at home: No Do you presently have visiting nurse or other home services: No Unable to assess alcohol history related to: Unknown Alcohol intake: never 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 Patient Tobacco Use Status: Never used Tobacco e-Cigarette/Vaping Use: Never Used Advance Directives Date on File: 04/07/24 service: No Sexual orientation: Straight/Heterosexual Review of Systems Const All systems reviewed & are unremarkable except as noted in HPI and below Physical Exam Const General: cooperative, healthy appearing and no acute distress Resp Effort & Inspection: normal respiratory effort and able to speak in complete sentences Extrem Other: Right shoulder incision sites are clean dry and intact. Sutures intact. No surrounding erythema or drainage. No signs of infection. Patient has extremely limited range of motion. 20 degrees forward flexion abduction. NVI. Psych Appearance: grossly normal Mental Status: mental status grossly normal Attitude: cooperative Assessment & Plan Assessment & Plan (1) Chronic shoulder pain: Code(s): M25.519 - Pain in unspecified shoulder; G89.29 - Other chronic pain Category: Medical Qualifiers: Laterality: right Qualified Code(s): M25.511 - Pain in right shoulder; G89.29 - Other chronic pain Plan Ms. Sonido Cisneros is a 74-year-old female who presents to the office today status post right shoulder arthroscopic lavage on 04/18/[address] Goldsmith. No infectious pathology was observed. Cultures were obtained in the emergency department and were negative for any growth. Patient reports that she has continued chronic right shoulder pain. She has difficulty with range of motion at baseline. While in the office today, sutures are removed and Steri-Strips were applied. As the patient had no infectious pathology she may continue to follow up for right chronic shoulder pain with her PCP. Additionally, I have placed a physical therapy order to work on gentle range of motion. Her follow up with Orthopedics will be PRN, sooner if needed. Coding Level of Care Code Global (75052) Diagnoses Chronic shoulder pain M25.511; G89.29 Laterality: right
== END 2025-04-27 13:29 | disposition home or self-care (01) ==
LOC: HO.HOS 12:21
PROVIDERS: PCP Internal Medicine; Visit Provider Physician Assistant
DX: M25.511 Pain in right shoulder (principal); G89.29 Other chronic pain
CPT/HCPCS: 99024

== ENCOUNTER → 2025-04-27 12:20 | Outpatient (BNVA) | payer OTHER, SELFPAY | PROVIDERS: PCP Internal Medicine; Visit Provider Physician Assistant | DX: Z48.02 Encounter for removal of sutures (principal); M25.511 Pain in right shoulder; G89.29 Other chronic pain; Z98.890 Other specified postprocedural states | CPT/HCPCS: 99212 ==

== ENCOUNTER 2025-05-23 12:17 | Emergency (ER) | payer OTHER, SELFPAY ==
--- OUTSIDE RECORDS SUMMARY | 2025-03-06 06:50 | XMS_ITS ---
Author Organization [facility] Address [address] [place] [address] Care Team Providers Care Java Developer Name Role Phone Amanda Adame M.D. Primary Care Provider Geoff Leon Jr, João Marie REASON FOR VISIT anemia Encounters Encounter Location Date Provider Diagnosis [facility] [place] [address] [place], [place] [id number] 03/06/2025 João Leon Jr Plan Of Treatment Next Appt Details Provider Name:João yañez Jr, 07/26/2025 02:15:00 PM, [address], [address], [place], [address], Progress Notes * JP MORGANDOB:[birth year] (74 yo F)Acc No.[id number]:03/06/2025 EGD and COL/MAC Patient: JP HINKLE Provider: Shannan Leon MD :1950 A ge:74 Y S ex:Female Date:03/06/2025 Address:[address] [place] [address] [address] , [place], [place] Pcp:Amanda Adame M.D. Subjective: * Chief Complaints: [...] 03/06/2025 Generated for Selene garcia/Thad/Miriamitting on: 1 07:00 PM EDT
--- NOTE | ~2025-05-23 | CT_ITS ---
EXAMINATION: CT SHOULDER WITH CONTRAST, RIGHT CLINICAL INFORMATION: Recent surgery, pain COMPARISON: CT 04/17/2025 TECHNIQUE: Axial imaging. Sagittal and coronal reconstructions. 72 mL Omnipaque [address] examination was performed using dose optimization techniques as appropriate, variously including the following: *Automated exposure control *Adjustment of mA and/or kV according to patient size (this includes techniques or standardized protocols for targeted exams where dose is matched to indication/reason for exam; i.e. extremities or head) *Use of iterative reconstruction technique FINDINGS: Motion artifact on the axial sequence, limiting evaluation. Severe glenohumeral arthritis, joint space loss, osteophytes, subchondral cysts. Limited evaluation for glenohumeral joint effusion, with possible effusion present. Bony irregularity at the acromioclavicular joint, grossly similar to the prior study. Redemonstrated os acromiale with degenerative changes. The acromion is thin in caliber, similar finding seen on the prior study. No evidence of acute fracture or dislocation. Previously seen air in the soft tissues, is not visualized in today's study.. No air seen in the soft tissues in today's study. No suspicious findings in the visualized lung. No axillary lymphadenopathy. CT/CT shoulder RT w IV con IMPRESSION: 1. No evidence of gas seen in the soft tissues.. The previously noted soft tissue gas has resolved. 2. Redemonstrated bony irregularity marginating the acromioclavicular joint. This could represent arthritic changes, sequela of age-indeterminate septic arthritis. Ongoing infection cannot be excluded. 3. Severe glenohumeral joint arthritis. A component of joint effusion cannot be excluded, evaluation is limited on CT., 4. Clinically correlate and management. Further imaging/follow-up imaging as clinically indicated. Electronically signed by: Connor Pierre MD 05/23/2025 04:37 PM EDT
--- NOTE | ~2025-05-23 | XR_ITS ---
EXAMINATION: XR KNEE, LEFT CLINICAL INFORMATION: pain COMPARISON: June 23, 2024. TECHNIQUE: AP and cross lateral view of the left knee. FINDINGS: Joint space narrowing involving mostly the lateral compartment with associated sclerosis along the articular surface and small marginal osteophyte formation. No acute cortical disruption or malalignment. Suprapatellar bursa joint effusion, moderate volume. Vascular calcifications. No lytic or blastic lesions. XR/XR knee LT 2V IMPRESSION: Tricompartmental osteoarthrosis/osteoarthritis involving mostly the lateral compartment, moderate to severe. Suprapatellar bursa joint effusion, moderate volume. No acute fracture or dislocation. Atherosclerosis disease, peripheral. Electronically signed by: Son Brennan MD 05/23/2025 03:35 PM EDT
--- NOTE | ~2025-05-23 | XR_ITS ---
EXAMINATION: XR FOOT, LEFT CLINICAL INFORMATION: pain COMPARISON: None available. TECHNIQUE: AP, lateral, and oblique views of the left foot. FINDINGS: No fracture or dislocation. No x-ray evidence of osteomyelitis. Mild degenerative changes at the MTP, MTT, talar navicular and navicular cuneiform joints. Soft tissue arterial calcification. Large plantar calcaneal spur. Question soft tissue swelling, greatest adjacent to the lateral foot/fifth metatarsal bone and plantar hindfoot. No soft tissue foreign body or abnormal air collection.. XR/XR foot LT min 3V IMPRESSION: Degenerative changes. Large plantar calcaneal spur. Soft tissue arterial calcification. Question diffuse soft tissue swelling. Electronically signed by: Trina Cyr MD 05/23/2025 03:40 PM EDT
[2025-05-23 12:49] VITALS: BP 132/58; PULSE 65; PULSE 70; RESP 20; O2SAT 95; O2SAT 96; BMI 43.5
--- NOTE | 2025-05-23 13:51 | ED.GENADULT ---
HPI - General Adult General Chief complaint: General Medical Stated complaint: upper extremity pain POC 428 Time Seen by Provider: 05/23/25 13:29 Source: patient Mode of arrival: EMS Limitations: language barrier (Austrian-speaking) History of Present Illness ED Provider: BENOIT Song HPI narrative: 74-year-old female with medical history of CKD stage 3, type 2 diabetes, HLD, HTN, CAD, HfPef, osteoporosis, arthritis, asthma, fibromyalgia, anemia, bradycardia, MDD, ANILA, presents to ED due to pain of the R shoulder, L knee and L foot. Patient has chronic shoulder pain but was admitted to [facility] for shoulder pain with CT findings concerning for septic joint. Patient had joint aspiration without organisms and had arthroscopic debridement and lavage of R shoulder. Patient states she has had persistent pain in the R shoulder since the procedure. Additionally, patient complains of pain of the R knee and R foot but denies any fall/trauma or injury. Denies fevers, chills, chest pain, SOB, difficulty breathing, nausea, vomiting, abd pain. MD complaint: L shoulder pain, R knee pain, R foot pain Related Data Home Medications ?Medication ?Instructions ?Recorded ?Confirmed atorvastatin 80 mg tablet 80 mg PO BEDTIME 04/07/21 04/18/25 duloxetine 20 mg capsule,delayed 20 mg PO DAILY 03/18/24 04/18/25 release omeprazole 40 mg capsule,delayed 40 mg PO DAILY@0630 03/18/24 04/18/25 release trazodone 150 mg tablet 150 mg PO BEDTIME 10/06/24 04/18/25 calcium carbonate (Oyster Shell 500 mg PO BID 12/06/24 04/18/25 Calcium 500) hydroxyzine HCl 25 mg tablet 25 mg PO Q8H PRN anxiety 12/06/24 04/18/25 albuterol sulfate 2.5 mg/3 mL 2.5 mg inhalation Q6H PRN 03/04/25 04/18/25 (0.083 %) solution for nebulization Shortness Of Breath Or Wheezing albuterol sulfate 90 mcg/actuation 2 puff inhalation QID PRN 03/04/25 04/18/25 aerosol inhaler Shortness Of Breath Or Wheezing gabapentin 300 mg capsule 300 mg PO BID 03/04/25 04/18/25 aspirin 81 mg tablet,delayed 81 mg PO QAM 04/18/25 04/18/25 release cyclobenzaprine 5 mg tablet 5 mg PO TID 04/18/25 04/18/25 docusate sodium 100 mg capsule 100 mg PO BID 04/18/25 04/18/25 insulin degludec 200 unit/mL (3 67 unit subcut DAILY 04/18/25 04/18/25 mL) subcutaneous pen (Tresiba FlexTouch U-200 insulin) melatonin 5 mg tablet 5 mg PO BEDTIME 04/18/25 04/18/25 tirzepatide 5 mg/0.5 mL 5 mg subcut FR 04/18/25 04/18/25 subcutaneous pen injector (Lamont) Previous Rx's ?Medication ?Instructions ?Recorded apixaban 5 mg tablet (Eliquis) 5 mg PO BID #60 tabs 11/03/23 amlodipine 5 mg tablet 5 mg PO DAILY #30 tabs 06/20/24 torsemide 20 mg tablet 20 mg PO DAILY #30 tabs 06/20/24 levothyroxine 100 mcg tablet 100 mcg PO DAILY@0600 #90 tabs 03/07/25 (Synthroid) ferrous fumarate 324 mg (106 mg 324 mg PO DAILY #90 tabs 03/22/25 iron) tablet acetaminophen 325 mg tablet 650 mg (2 x 325 mg) PO Q6H PRN 04/20/25 Pain, Mild 1-3,Fever,Headache 30 days #240 tabs oxycodone 5 mg tablet 5 mg PO Q6H PRN pain 7 days #28 04/20/25 tabs cephalexin 500 mg capsule 500 mg PO BID 7 days #14 caps 05/23/25 doxycycline hyclate 100 mg capsule 100 mg PO BID 7 days #14 caps 05/23/25 Allergies Allergy/AdvReac Type Severity Reaction Status Date / Time codeine (CODEINE) Allergy Intermediate HALLUCINATI Verified 05/23/25 12:52 ONS Review of Systems Review of Systems: CONST: Negative for fever, body aches and chills. HENT: Negative for neck pain/stiffness, headache, congestion, sore throat, swelling. EYES: Negative for discharge/pain or vision changes. RESP: Negative for cough/hemoptysis and shortness of breath. CV: Negative chest pain, difficulty breathing, palpitations. ABD: Negative pain, nausea, vomiting. : Negative increase frequency, dysuria, blood in urine or stool. MUSC: Negative for muscle aches, edema. POS L shoulder pain, R knee pain, R foot pain SKIN: Negative rash, lesions/sores. NEURO: Negative headache, dizziness, weakness. Yes all other systems are reviewed and are negative PMFSH Past Medical History Attestation statement: The following information was validated with the patient. Source: old records reviewed and nursing notes reviewed Medical History Urinary incontinence (HFpEF) heart failure with preserved ejection fraction Anxiety Insomnia CKD (chronic kidney disease) CKD stage 3 due to type 2 diabetes mellitus Leg abrasion Abuse of non-prescription analgesics Type 2 diabetes mellitus with unspecified complications Other and unspecified hyperlipidemia Essential hypertension Atherosclerotic cardiovascular disease Urgency incontinence Osteoporosis Arthritis Asthma Hypertension Fibromyalgia Diabetes mellitus Surgical History H/O tubal ligation History of hernia repair Social History Social History Household Members: Children Household Members Other:: son Housing: Apartment Are you a primary patient care technician instructor to a significant other at home: No Do you presently have visiting nurse or other home services: No Alcohol intake: never 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 Patient Tobacco Use Status: Never used Tobacco e-Cigarette/Vaping Use: Never Used Advance Directives: Yes Advance Directives on File: Yes Advance Directives Date on File: 04/07/24 service: No Sexual orientation: Straight/Heterosexual Physical Exam ED Vital Signs: Vital Signs - 24 hr 05/23/25 12:49 05/23/25 14:48 05/23/25 15:48 Temperature 97.2 F Pulse Rate 70 57 Respiratory Rate 20 16 16 Blood Pressure 146/63 H Pulse Oximetry 95 99 Oxygen Delivery Method Room Air Room Air BMI result Body Mass Index 43.5 GENERAL APPEARANCE: ?AxOx4, disheveled, chronically ill appearing, non-toxic appearing, no acute distress. HEENT: ?NC, AT. MMM. EOMI, clear conjunctiva, oropharynx clear. NECK: ?Supple without lymphadenopathy.? No stiffness or restricted ROM. HEART:? Normal rate and regular rhythm, normal S1/S2, no m/r/g LUNGS:? Diminished breath sounds throughout lung brunson, mild expiratory wheeze ABDOMEN: ?Soft, nontender, nondistended with good bowel sounds heard. BACK: No CVAT, no obvious deformity. EXTREMITIES: ?Without cyanosis, clubbing or edema. L shoulder TTP of posterior aspect, no warmth, edema or overlying skin changes, reduced ROM due to pain, especially in flexion past 120 degrees, and in extension past 30 degrees, radial pulses 2+. L knee with mild edema, no warmth, erythema or ecchymosis, TTP of diffuse patella, DP pulses 2+, ROM intact but has pain in flexion. TTP of diffuse foot without warmth, edema, erythema or skin breakdown. Area of erythema and warmth of the right LE. Patient in wheelchair at baseline. NEUROLOGICAL: ?Grossly nonfocal. Alert and oriented, moving all 4 extremities. Skin: ?Warm and dry without any rash. Medications Administered Discontinued Medications Generic Name Dose Route Start Last Admin Trade Name Freq PRN Reason Stop Dose Admin Acetaminophen 1,000 mg in 100 mls @ 400 mls/hr 05/23/25 14:20 05/23/25 17:29 Ofirmev IV 05/23/25 14:34 Infused ONCE ONE Infusion Lactated Ringer's 1,000 mls @ 500 mls/hr 05/23/25 15:47 05/23/25 17:29 Lr IV 05/23/25 17:46 Not Given .Q2H ONE Insulin Human Lispro 6 unit 05/23/25 15:47 05/23/25 16:29 Insulin Lispro 100 Unit/Ml 3 Ml Vial SUBCUT 05/23/25 15:48 6 unit ONCE ONE Administration Iohexol 100 ml 05/23/25 16:05 05/23/25 16:05 Iohexol 350 Mg/Ml 100 Ml Infus..Btl IV 05/23/25 16:06 85 ml ONCE ONE Administration Morphine Sulfate 2 mg 05/23/25 14:22 05/23/25 15:48 Morphine Sulfate 2 Mg/Ml Cartridge IVPUSH 05/23/25 14:23 2 mg ONCE ONE Administration Protocol Medical Decision Making Medical Decision Making MDM Narrative: 4-year-old female with medical history of CKD stage 3, type 2 diabetes, HLD, HTN, CAD, HfPef, osteoporosis, arthritis, asthma, fibromyalgia, anemia, bradycardia, MDD, ANILA, presents to ED due to pain of the R shoulder, L knee and L foot. Patient has chronic shoulder pain but was admitted to [facility] for shoulder pain with CT findings concerning for septic joint. Patient had joint aspiration without organisms and had arthroscopic debridement and lavage of R shoulder. Patient with recent debridement and lavage of the R shoulder 04/27 with persistent pain since procedure. Will evaluate with CT of shoulder. Patient with chronic R knee and R foot pain, however no recent imaging. Will obtain XR L knee and foot for further evaluation. Course Labs reveal mild leukopenia 4.5, normocytic anemia with a hemoglobin of 11.5, and hematocrit of 37.3, BUN of 34, random serum glucose of 352, no other abnormalities. XR L knee reveals tricompartmental osteoarthritis/osteoarthritis involving the lateral compartment, moderate volume suprapatellar bursa joint effusion, peripheral atherosclerosis disease, without fracture or dislocation. XR L foot reveals degenerative changes, with a large plantar calcaneal spur, a soft tissue arterial calcification, questionable diffuse soft tissue swelling. Patient with chronic R shoulder pain, however recently had arthroscopic debridement and lavage on 04/27 with persistent pain after procedure. CT R shoulder reveals arthritic changes, without soft tissue gas seen on prior, but does question ongoing infection. I reached out to Orthopedic BENOIT Edwards who stated there was no evidence of infection during washout. I do not appreciate evidence of infection today on physical exam as there is no warmth, erythema present, or significant leukocytosis. This pain is most likely due to severe glenohumeral joint arthritis. No indication for antibiotics at this time. XR knee with moderate suprapatellar bursa joint effusion, however ROM intact, without warmth or erythema of the area. There is some warmth and erythema over the lower extremity that patient states has been present for about 1 month and has taken antibiotics for. Patient states this area is improving. I will discharge patient with 7 day course of keflex for coverage and have her follow up with PCP. Patient a febrile without significant leukocytosis, without significant edema or erythema of the area, no indication for aspiration at this time lower suspicion for septic arthritis as ROM is intact. XR L foot with large plantar calcaneal spur, most likely causing foot pain. Referral placed for patient to follow up with podiatry. Labs with hyperglycemia of 352 without gap. Patient was given gentle hydration 500mL fluids and 6 units Lispro given for correction. POC after gentle fluids and 6units lispro reveals glucose of 269. Patient medicated with 1g IV tylenol and 2mg morphine with significant improvement of pain. I counseled patient to follow up with her primary care doctor to ensure resolution of redness of her lower extremity, and adjust knee pain. I counseled patient to follow up with the Podiatry due to calcaneal spur. I counseled patient to follow up with orthopedics for ongoing right shoulder pain. Patient feels good enough to go home for self-care. Patient is in agreement with the plan. Differential Diagnosis Differential Diagnoses: The differential diagnosis associated with the presentation includes Septic arthritis R shoulder injury R shoulder infection after surgical washout osteoarthritis of L knee Gout of L knee Fracture of L foot Admission/Observation Consideration of admission/observation: Escalation of care including admission/observation considered Lab Data MDM Lab Attestation statement: I reviewed the patient's lab results. 05/23/25 15:15 05/23/25 15:07 Labs: Lab Results 05/23/25 05/23/25 05/23/25 Range/Units 15:07 15:15 17:41 WBC 4.5 L (4.8-10.8) X10*3/uL RBC 4.45 D (4.20-5.50) X10*6/uL Hgb 11.5 L D (12.0-16.0) g/dl Hct 37.3 D (37.0-47.0) % MCV 83.8 (80.0-98.0) fL MCH 25.8 L (27.0-33.0) pg MCHC 30.8 L (31.0-35.0) g/dl RDW 17.9 H (11.0-16.0) % Plt Count 181 D (160-400) X10*3/uL MPV 11.0 (9.4-12.3) fL Immature Gran % (Auto) 0.4 (0.0-0.4) % Neut % (Auto) 54.9 (45-73) % Lymph % (Auto) 30.8 (20-40) % [place] % (Auto) 8.0 (2-11) % Eos % (Auto) 4.6 H (0-4) % Baso % (Auto) 1.3 (0-2) % Lymph # (Auto) 1.4 (1.2-4.9) X10*3/uL [place] # (Auto) 0.4 (0.1-1.2) X10*3/uL Eos # (Auto) 0.2 (0.0-0.4) X10*3/uL Baso # (Auto) 0.1 (0.0-0.2) X10*3/uL Abs Immat Gran (auto) 0.02 (0.00-0.03) X10*3/uL Absolute Neuts (auto) 2.5 (2.0-8.3) x10*3/uL Absolute Nucleated RBC 0.000 (0.0-0.012) X10*3/uL Nucleated RBC % (auto) 0.0 (0.0-0.2) /100WBC Sodium 140 (135-145) mmol/L Potassium 5.1 (3.3-5.1) mmol/L Chloride 100 (96-108) mmol/L Carbon Dioxide 31 H (22-29) mmol/L Anion Gap 14 (12-20) BUN 34 H (9-16) mg/dL Creatinine 1.26 (0.5-1.4) mg/dL Estim Creat Clear Calc 42.8 Estimated GFR 41 POC Glucose 269 H (60-115) mg/dL Random Glucose 352 H* (60-115) mg/dL Calcium 8.5 (8.4-10.2) mg/dL Magnesium 2.0 (1.6-2.6) mg/dL Total Bilirubin 0.3 (0.0-1.0) mg/dL AST 26 (5-31) U/L ALT 7 (0-31) U/L Alkaline Phosphatase 67 (39-117) U/L Total Protein 7.0 (6.5-8.0) g/dL Albumin 3.5 (3.5-5.0) g/dL Independent Interpretation I performed an independent interpretation of an: Plain X-Ray and CT Scan Interpretation: I personally interpreted the XR R knee which was negative for fracture, dislocation however did reveal osteoarthritic changes, with suprapatellar joint effusion, I agree with the radiologist's interpretation I personally interpreted the XR R foot which was negative for fracture or dislocation, however does reveal large calcaneal spur, I agree with the radiologist's interpretation I personally interpreted the CT L shoulder which reveals resolved moment of soft tissue gas on prior, with severe arthritic changes, I agree with the radiologist's interpretation. Radiology Impression Discussion of test interpretation with radiology: I have reviewed the radiologist's reading. Radiologist Impression: XR R foot FINDINGS: No fracture or dislocation. No x-ray evidence of osteomyelitis. Mild degenerative changes at the MTP, MTT, talar navicular and navicular cuneiform joints. Soft tissue arterial calcification. Large plantar calcaneal spur. Question soft tissue swelling, greatest adjacent to the lateral foot/fifth metatarsal bone and plantar hindfoot. No soft tissue foreign body or abnormal air collection.. XR/XR foot LT min 3V IMPRESSION: Degenerative changes. Large plantar calcaneal spur. Soft tissue arterial calcification. Question diffuse soft tissue swelling. Electronically signed by: Trina Cyr MD 05/23/2025 03:40 PM EDT RP Dictated By: Trina Cyr MD Signed By: <Electronically signed by Trina Cyr MD in OV> 05/23/25 1540 XR R knee FINDINGS: Joint space narrowing involving mostly the lateral compartment with associated sclerosis along the articular surface and small marginal osteophyte formation. No acute cortical disruption or malalignment. Suprapatellar bursa joint effusion, moderate volume. Vascular calcifications. No lytic or blastic lesions. XR/XR knee LT 2V IMPRESSION: Tricompartmental osteoarthrosis/osteoarthritis involving mostly the lateral compartment, moderate to severe. Suprapatellar bursa joint effusion, moderate volume. No acute fracture or dislocation. Atherosclerosis disease, peripheral. Electronically signed by: Son Brennan MD 05/23/2025 03:35 PM EDT RP Dictated By: Son Watson MD Signed By: <Electronically signed by Son Lazaro MD in OV> 05/23/[address] L shoulder Independent Historian Clinical information obtained from an independent historian. History obtained from or confirmed by: EMS External Record Review External record reviewed: Inpatient record, Office record and Outpatient record Prescription Management I considered prescription management with: Other (I considered treatment with prednisone, however patient's glucose is out of control with serum glucose today of 352, I spoke about this with the patient who feels more comfortable following up with primary care provider instead of course of prednisone.) Chronic Conditions Patient?s care impacted by: Diabetes, Hypertension and Other (CKD stage 3, HLD, CAD, HFpEF, stable process, arthritis, asthma, fibromyalgia, anemia, bradycardia, MDD, ANILA) Social Determinants Patient?s care significantly limited by Social Determinants of Health including: Other Social Determinant of Health Discharge Plan Discharge Clinical Impression: Osteoarthritis of knee, Osteoarthritis of right shoulder, Cellulitis Patient Disposition: Home, Self-Care Additional Instructions: You were evaluated in the ED today due to left knee pain, left foot pain, right shoulder pain. The x-ray of your knee revealed arthritic changes, the small amount of fluid in front of the kneecap. The x-ray of your left foot revealed that you have a bony spur at the base of your heel. The CT of your shoulder revealed severe osteoarthritis, with questionable infection however I spoke with the orthopedic team who did not see evidence of infection during your surgical procedure. You did not have any evidence of infection of the shoulder today. Your pain is due to osteoarthritis. You need to follow up with your primary care doctor, podiatry, and orthopedics for management of osteoarthritis. I have placed referal to podiatry for further management of the bony spur of your left foot. Please call [facility] office as they will not call you. You are being prescribed a 7 day course of Keflex and doxycycline for the infection of your lower left leg. Please complete the entire course. And follow up with your primary care doctor. Please return to the emergency department if you experience fevers over 100.4?, worsening pain in your left knee, worsening pain in your left foot, worsening pain in your right shoulder, redness or warmth to any of these areas, nausea, vomiting or any new/worsening/concerning symptoms. Prescriptions: New cephalexin 500 mg capsule 500 mg PO BID 7 Days Qty: 14 0RF doxycycline hyclate 100 mg capsule 100 mg PO BID 7 Days Qty: 14 0RF No Action atorvastatin 80 mg tablet 80 mg PO BEDTIME Eliquis 5 mg Tablet 5 mg PO BID Qty: 60 0RF omeprazole 40 mg capsule,delayed release(DR/EC) 40 mg PO DAILY@0630 duloxetine 20 mg capsule,delayed release(DR/EC) 20 mg PO DAILY calcium carbonate [Oyster Shell Calcium 500] 500 mg calcium (1,250 mg) tablet 500 mg PO BID Patient Comments: Applies to legs hydroxyzine HCl 25 mg tablet 25 mg PO Q8H PRN (Reason: anxiety) torsemide 20 mg tablet 20 mg PO DAILY Qty: 30 0RF amlodipine 5 mg Tablet 5 mg PO DAILY Qty: 30 0RF Protocol: Hold for SBP< HOLD for SBP < : 90 trazodone 150 mg tablet 150 mg PO BEDTIME albuterol sulfate 2.5 mg /3 mL (0.083 %) solution for nebulization 2.5 mg inhalation Q6H PRN (Reason: Shortness Of Breath Or Wheezing) gabapentin 300 mg capsule 300 mg PO BID albuterol sulfate 90 mcg/actuation HFA aerosol inhaler 2 puff INHALATION QID PRN (Reason: Shortness Of Breath Or Wheezing) levothyroxine [Synthroid] 100 mcg Tablet 100 mcg PO DAILY@0600 Qty: 90 0RF aspirin 81 mg tablet,delayed release (DR/EC) 81 mg PO QAM docusate sodium 100 mg capsule 100 mg PO BID cyclobenzaprine 5 mg tablet 5 mg PO TID melatonin 5 mg tablet 5 mg PO BEDTIME insulin degludec [Tresiba FlexTouch U-200] 200 unit/mL (3 mL) insulin pen 67 unit subcut DAILY Mounjaro 5 mg/0.5 mL pen injector 5 mg SUBCUT FR acetaminophen 325 mg Tablet 650 mg PO Q6H PRN (Reason: Pain, Mild 1-3,Fever,Headache) 30 Days Qty: 240 0RF oxycodone 5 mg tablet 5 mg PO Q6H PRN (Reason: pain) 7 Days Qty: 28 0RF Rx Instructions: Partial Fill upon patient request. ferrous fumarate 324 mg (106 mg iron) tablet 324 mg PO DAILY Qty: 90 0RF Referrals: Prabhu Zavala DPM [Sweat Box Attendant, Podiatry] Print Language: Austrian
[2025-05-23 14:48] VITALS: BP 146/63; PULSE 57; RESP 16; TEMP 36.2; O2SAT 99
[2025-05-23 15:19] LABS: MANUAL DIFF FLAG NO
[2025-05-23 15:22] LABS: Hematocrit 37.3 % (37.0-47.0); Hemoglobin 11.5 g/dl (12.0-16.0); Imm Gran Abs Auto 0.02 X10*3/uL (0.00-0.03); Imm Gran Pct Auto 0.4 % (0.0-0.4); Lymphocytes Absolute Auto 1.4 X10*3/uL (1.2-4.9); Mean Corpuscular HGB Conc 30.8 g/dl (31.0-35.0); Mean Corpuscular Hemoglobin 25.8 pg (27.0-33.0); Mean Corpuscular Volume 83.8 fL (80.0-98.0); NRBC Abs Auto 0.000 X10*3/uL (0.0-0.012); NRBC Pct Auto 0.0 /100WBC (0.0-0.2); Platelet Count 181 X10*3/uL (160-400); Red Blood Count 4.45 X10*6/uL (4.20-5.50); White Blood Count 4.5 X10*3/uL (4.8-10.8)
[2025-05-23 15:44] LABS: Alanine Aminotransferase 7 U/L (0-31); Albumin Level 3.5 g/dL (3.5-5.0); Anion Gap 14 (12-20); Aspartate Amino Transferase 26 U/L (5-31); Blood Urea Nitrogen 34 mg/dL (9-16); Calcium 8.5 mg/dL (8.4-10.2); Carbon Dioxide 31 mmol/L (22-29); Chloride 100 mmol/L (96-108); Creatinine Clr Calc Pharmacy 42.8; Estimated Glomerular Filt Rate 41; Magnesium 2.0 mg/dL (1.6-2.6); Potassium 5.1 mmol/L (3.3-5.1); Sodium 140 mmol/L (135-145); Total Protein 7.0 g/dL (6.5-8.0)
[2025-05-23 15:48] VITALS: RESP 16
[2025-05-23 15:59] LABS: Alkaline Phosphatase 67 U/L (39-117)
[2025-05-23] MEDS: iohexoL 350 MG/ML 100 ML INFUS..BTL IV (16:05)
[2025-05-23 17:44] LABS: Glucose, Whole Blood 269 mg/dL (60-115)
[2025-05-23 18:30] VITALS: BP 134/66; PULSE 88; RESP 16; TEMP 37.1; O2SAT 97
--- OUTSIDE RECORDS SUMMARY | 2025-05-23 19:00 | XMS_ITS | Patient Health Record ---
Author Organization [facility] Address [address] [place] [id number] Care Team Providers Care Pricing Consultant Name Role Phone Amanda Adame M.D. Primary Care Provider João Woodward Jr Results Component Value Reference Range Notes Pathology Reviewed date:03/21/2025 08:46:31 AM Interpretation: Performing Lab:[facility], [address] [place] [id number] Notes/Report: Reason For Referral No Information Problems Problem Type SNOMED Code ICD Code Onset Dates Problem Status W/U Status Risk Notes Problem Iron deficiency anemia (00507347) Iron deficiency anemia (D50.9) Active confirmed Problem Gastritis (2506827) Gastritis (K29.70) Active confirmed Encounters Encounter Location Date Provider Diagnosis [facility] [address] [place] [id number] 03/06/2025 João Leon Jr [facility] [address] [place] [phone] 03/21/2025 João Leon Jr Plan Of Treatment Next Appt Details Provider Name:João yañez Jr, 07/26/2025 02:15:00 PM, [address], [address], [place], [address], Insurance Providers Payer Name Payer Address Payer Phone Subscriber Number Group Number Insured Name Patient Relationship to Insured Coverage Start Date Coverage End Date [facility] [address] Attn Claims CARLOS Varma [id number] JP MORGAN Self - patient is the insured
--- OUTSIDE RECORDS SUMMARY | 2025-05-23 19:00 | XMS_ITS | Data Portability ---
Author Organization [facility], Main Office Address [address] [facility] [address] [place] [address] Care Team Providers Care Die Reamer Name Role Phone EUGENIA FLOWER - 2ND FLOOR OTHER Assessment Encounter Date Assessment Date Assessment LastModified by Organization Details LastModified Time 04/08/2024 04/08/202404/05 na 139 k 5 cre 1.27 wbc 6.8 hgn 9.7 hct 31.1 [email or web address] Not available 04/08/2024 12:35:37 04/11/2024 04/11/202404/05 na 139 k 5 cre 1.27 wbc 6.8 hgn 9.7 hct 31.1 [email or web address] Not available 04/11/2024 21:51:17 04/18/2024 04/18/202404/05 na 139 k 5 cre 1.27 wbc 6.8 hgn 9.7 hct 31.1 [email or web address] Not available 04/18/2024 13:49:59 04/19/2024 04/19/202404/05 na 139 k 5 cre 1.27 wbc 6.8 hgn 9.7 hct 31.1 this FINAL FINISHER spent >30 minutes with assessment, dx, referral, orders and script in coordination of the discahrge [email or web address] Not available 04/19/2024 09:19:51 Plan of [...] Address Organization Details Recorded Time Depressive disorder 76745703 Active 2023 HOLDEN LAURENT [address], [address], [place], [address], [facility] 4 12:24:02 Atrial fibrillation 39563990 Active 2023 HOLDEN LAURENT [address], [address], [place], [address], [facility] 4 12:24:20 Obstructive sleep apnea syndrome 87728253 Active 2023 HOLDEN LAURENT [address], [place], [address], [facility] 4 12:24:31 Asthma 811835837 Active 2023 HOLDEN LAURENT [address], [place], [address], [facility] 4 12:24:36 Hypertensive disorder 46806928 Active 2023 HOLDEN LAURENT [address], [place], [address], [facility] 4 12:24:41 Hyperlipidemia 91021829 Active 2023 HOLDEN LAURENT [address], [place], [address], [facility] 4 12:24:47 Retention of urine 294449016 Active 2023 HOLDEN LAURENT [address], [place], [address], [facility] 4 12:24:53 Opioid dependence 29419908 Active 2023 HOLDEN LAURENT [address], [place], [address], [facility] 4 12:25:08 Diabetes mellitus 74934511 Active 2023 HOLDEN LAURENT [address], [place], [address], [facility] 4 12:25:14 Congestive heart failure 70886945 Active 2023 HOLDEN LAURENT [address], [address], [place], [address], [facility] 4 12:25:21 Gastroesophage al reflux disease 755551689 Active 2023 HOLDEN LAURENT [address], [address], [place], [address], [facility] 4 12:25:30 Hypothyroidism 43921431 Active 2023 HOLDEN LAURENT [address], [address], [place], [address], [facility] 4 12:25:37 Cellulitis 421765500 Active 2023 HOLDEN LAURENT [address], [address], [place], [address], [facility] 4 12:26:22 Arterial insufficiency 272503914 Active 2023 HOLDEN LAURENT [address], [address], [place], [address], [facility] 4 12:26:37 Problem Notes None recorded. Medical Equipment None Reported. Allergies Allergen ID Allergen Name Allergen Category Reaction Reaction Severity Criticality Documentation Date Start Date Code Code System Note Provider Name and Address Organization Details Recorded Time 75238 codeine medicatio n Not available Not available Not available 04/08/2024 2670 RxNorm HOLDEN LAURENT [address], [place], [address], [facility] 4 12:38:31 Medications Name Sig Start Date [...] in Arterial blood by Pulse oximetry Systolic And Diastolic Provider Name and Address Organization Details Last Updated DateTime 4 152.4 cm 48.5 kg/m2 353978. 27 g 53 /min 18 /min 98.6 [degF] 98 % 98 % 149/77 mm[Hg] Genny Aguilar MD [address] [facility], [facility] [address], [place], [address], [facility] 4 21:34:16 Date Recorded Body height Heart rate Respiratory rate Body temperature Oxygen saturation Oxygen saturation in Arterial blood by Pulse oximetry Systolic And Diastolic Provider Name and Address Organization Details Last Updated DateTime 4 152.4 cm 54 /min 18 /min 98.1 [degF] 96 % 96 % 175/90 mm[Hg] IBETH PRICE NP [address] [facility], [address], [place], [address], [facility] 4 13:49:23 Date Recorded Body height Body mass index (BMI) Body weight Heart rate Respiratory rate Body temperature Oxygen saturation Oxygen saturation in Arterial blood by Pulse oximetry Systolic And Diastolic Provider Name and Address Organization Details Last Updated DateTime 4 152.4 cm 48.4 kg/m2 716297. 91 g 68 /min 18 /min 98.1 [degF] 96 % 96 % 132/72 mm[Hg] Raiza Madsen NP [address] [facility], [facility] [address], [place], [address], [facility] 4 08:19:33 Social History Question Answer Notes LastModified by Organizat ion Details LastModified Time Tobacco Smoking Status Never Smoker Genny Aguilar MD [address] [facility], [facility] [address], [place], [address], [facility] 04/11/2024 21:50:08 Do You Have An Advance Directive? Yes Information not available 04/11/2024 What Is Your Code Status? Full Code Information not available 04/11/2024 Where Do You Live? Apartment With Sister, Elevator Access. Information not available 04/11/2024 Legal Guardian? No Information not available 04/11/2024 Do You Have A Medical Power Of Playground Worker? Yes Information not available 04/11/2024 What Was [...] Diagnosis SNOMED-CT Code Diagnosis ICD10 Code Diagnosis IMO Codes Diagnosis Note [id number] HOLDEN LAURENT [address] [address] 04/08/2024 12:12:39 04/13/2024 15:07:34 Cellulitis 241273000 L03.90 completed antbx for LE cellulitis in ED = did not feel it was recurrence of an acute infectionh /o chronic lymphedema -monitor ss of infection- bacitracin topical to BL legs daily-oxyc odone 5 mg q6h prn for pain Arterial insufficiency 420646861 I77.1 -f/up with vascular per recs needs to be arranged-s ee above Retention of urine 76133 4002 R33.9 unable to urinate since coming from [facility] to facility-w ill order PVR, SC for PVR >400 cc Atrial fibrillation 4943 6004 I48.91 carrying dx-amiodar one 200 mg daily-eliq uis 5 mg bid-monito r HR and bleeding Hypertensive disorder 38 998752 I10 carrying dx-amlodip ine 10 mg daily-leonardo tor BP Depressive disorder 3548 9007 F32.A carrying dx-duloxet ine 20 mg daily-paxi l 40 mg daily-leonardo tor mood and affect-psy ch eval prn Congestive heart failure 44451338 I50.9 carrying dxnot on diuretics- metoprolol 50 mg daily-farx iga 10 mg daily-leonardo tor fluid status closely-da sacha weights Diabetes mellitus 475680 09 E11.9 carrying dxjardianc e was given once in hospital, dont see it on her home med list or dc med list = asked nursing to ask dtr-lantus 65 units HS-monitor accuchecks TID Hypothyroidism 91312701 E03.9 carrying dx-synthro id 50 mcg po in am-TSH/T4 prn Hyperlipidemia 63200314 E78.5 carrying dx-lipitor 80 mg daily Gastroesop hageal reflux disease 498202088 K21.9 carrying dx-omepraz ole 40 mg po daily Obstructiv e sleep apnea syndrome 57655854 G47.33 intermitte nt CPAP use at home Opioid dependence 774752 00 F11.20 -monitor needed support in community- on oxycodone for leg pain = monitor usage and wean as tolerated 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 Arterial insufficiency 852420159 I77.1 F/U with vascular as planned.Mo rubén ramos n. Retention of urine 29661 4002 R33.8 Improved, continue to monitor. Atrial fibrillation 4943 6004 I48.0 Rate in good control on amiodarone 200 mg daily and metoprolol 50 mg daily.Cont inue eliquis 5 mg BID for AC.Monitor HR and bleeding risk. Hypertensive disorder 38 133081 I10 Fair control on amlodipine 10 mg daily and metoprolol 50 mg daily.Leonardo tor BP and labs. Depressive disorder 3548 9007 F33.8 Mood good tonight, aside form wanting to go home.Nicanor nue duloxetine 20 mg daily, paroxetine 40 mg daily, trazadone 50 mg at bedtime, and melatonin 5 mg at bedtime.Mo nitor moodPsych consult prn Congestive heart failure 42635882 I50.32 Appears euvolemic. Continue meds as above and Farxiga 10 mg daily.Leonardo tor resp. status, fluid status, wts and labs. Diabetes mellitus 989009 09 E11.9 In good control since here.Nicanor nue lantus 65 units daily and Farxiga 10 mg daily.Leonardo tor accuchecks TID Hypothyroidism 95542716 E03.8 Continue levothyrox ine 50 mcg dailyMonit or TSH prn. Hyperlipidemia 46888132 E78.49 Continue atorvastat in 80 mg dailyMonit or labs as outpt. Gastroesop hageal reflux disease 347214376 K21.9 No current sxs.Contin ue omeprazole 40 mg dailyMonit or GI sxs. Obstructiv e sleep apnea syndrome 85632847 G47.33 Continue CPAP with sleep.F/U prn. Opioid dependence 193482 00 F11.20 On oxycodone chronicall y.Monitor use and f/u with pcp as planned. Candidiasis of vagina 72 479477 B37.31 Not improving with nystatin.W ill start diflucan 150 mg x 1 and repeat in 1 wk. [id number] IBETH PRICE NP [address] [address] 04/18/2024 08:27:20 04/19/2024 14:02:05 Cellulitis 632116831 L03.116 Improved. now with healing woundsdiph enhydramin [...] BMP x 1 in am Arterial insufficiency 180581728 I77.1 F/U with vascular as planned.Anthony sotelo.Refer to [facility] for outpt. mgmt. upon d/c. Retention of urine 44023 4002 R33.8 Improved, continue to monitor. Atrial fibrillation 4943 6004 I48.0 Rate in good control on amiodarone 200 mg daily and metoprolol 50 mg daily.Cont inue eliquis 5 mg BID for AC.Monitor HR and bleeding risk. Hypertensive disorder 38 492669 I10 Fair control on amlodipine 10 mg [...] [place] moodPsych consult prn Congestive heart failure 04200454 I50.32 Appears euvolemic. Continue meds as above and Farxiga 10 mg daily.Leonardo tor resp. status, fluid status, wts and labs. Diabetes mellitus 446591 09 E11.9 In fair control since here.Nicanor nue lantus 65 units daily and Farxiga 10 mg daily.Leonardo tor accuchecks TID Hypothyroidism 93991091 E03.8 Continue levothyrox ine 50 mcg dailyMonit or TSH prn. Hyperlipidemia 22889278 E78.49 Continue atorvastat in 80 mg dailyMonit or labs as outpt. Gastroesop hageal reflux disease 255901429 K21.9 No current sxs.Contin ue omeprazole 40 mg dailyMonit or GI sxs. Obstructiv e sleep apnea syndrome 50667492 G47.33 Continue CPAP with sleep.F/U prn. Opioid dependence 648549 00 F11.20 On oxycodone chronicall y.Monitor use and f/u with pcp as planned. Candidiasis of vagina 72 452523 B37.31 Not improving with nystatin.D iflucan 150 mg x 1 given, to repeat in 1 wk. [id number] [facility] [place] [address] 04/19/2024 08:18:47 04/20/2024 13:31:13 Cellulitis 212999340 L03.116 resolved with abx in hospitalno w [...] pcp, and wound clinica oupt Arterial insufficiency 035277448 I77.1 F/U with vascular as planned.Re marichuy to [facility] for outpt. mgmt. upon d/c. (referral given)vna services outpt with pcp to follow outpt with wound clinic Retention of urine 13348 4002 R33.8 Improved, continue to monitor. Atrial fibrillation 4943 6004 I48.0 Rate in good control on amiodarone 200 mg daily and metoprolol 50 mg daily.Cont inue eliquis 5 mg BID for AC.Monitor outpt with pcp and cardiology outpt Hypertensive disorder 38 056284 I10 hospital dc'd losartan 50 mg po [...] outptPsych consult prn outpt Congestive heart failure 72573937 I50.32 Appears euvolemic. Continue meds as above and Farxiga 10 mg daily.Leonardo tor outpt with pcp Diabetes mellitus 317093 09 E11.9 In fair control since here. 100-200s? if higher 200s related to infectiona lso glipizide and metformin was dc in hosp for ckd, monitor for need to add with pcp outptConti nuelantus 65 units dailyFarxi ga 10 mg daily.Leonardo tor accuchecks TID at home and bring log to pcp on 04/26/24. Hypothyroidism 27665552 E03.8 Continuele vothyroxin e 50 mcg dailyMonit or TSH prn outpt withpcp Hyperlipidemia 27953177 E78.49 Continue atorvastat in 80 mg dailyMonit or labs as outpt. Gastroesop hageal reflux disease 384536379 K21.9 No current sxs.Contin ueomeprazo le 40 mg dailyMonit or GI sxs. outpt with pcp Obstructiv e sleep apnea syndrome 06939371 G47.33 Continue CPAP with sleep.F/U prn outpt prn Opioid dependence 053037 00 F11.20 On oxycodone chronicall y.will cont on home dose and since on chronicall y will not send with any additional oxycodoneM onitor use and f/u with pcp as planned outpt Candidiasis of vagina 72 589021 B37.31 Not improving with nystatin.D iflucan 150 mg x 1 given at rehabmonit or with pcp outpt Chronic ki dney disease 154117639 N18.9 ckd per hosp paperwork with meds adjusted:g lipizide, losartan, furosemide , and metformin were dc'dlabs [facility] and need to adjust outpt with pcp Pain in le ft lower limb 029469899 M79.605 addendumpt was ready for discharge and now reporting left lower leg pain and states she can't put weight on itwhen attempting to get dressed for homefamily refuses therapy eval and xray here,famil y requests 911 call, and emergent evaluation at [facility] Health Concerns Section Related Observation LastModified by Organization Detai ls LastModified Time None Recorded Concern Status LastModified by Organization Details LastModified Time None Recorded Advance Directives Directive Y: Payers Insurance Date Sequence Insurance Name Policy Number Policy Meza Covered Member ID Meza Member ID Guarantor Name 04/19/2024 1 [facility] - DOS ON OR AFTER 2022 - MEDICARE ADVANTAGE [place] (MEDICARE REPLACEMENT/ADV ANTAGE - PPO) Mary Lou Cisneros [id number] Mary Lou Cisneros Notes Date Note Type Note Provider Name and Address Organization Details Recorded Time 04/08/2024 text/html Patient is a 73 yo female being seen for initial intake visit. She presented to [facility] for eval of left leg pain. [...] PT and was recommended for transfer to [facility] for continued care and rehab. On arrival from hospital patient reporting to nursing that she hasnt urinated. No report of this occurring while she was at [facility] and she did not have a [...] opiate dependence, hld, htn, DM REBECA SOTOMAYOR, FINAL FINISHER-C [address] [place] [address], [address], [place], [address], [facility] 04/08/2024 13:05:26 04/11/2024 text/html This is a 73 yo woman who is here for rehab after an ED visit for left leg pain after recovery from recent cellulitis.[facility], txed with ceftriaxone and vanco and sent home on po doxy to complete 10 day course.Daughter said she had been compliant with this.Also during that hospitalization she had mild AMRK on CKD and she got IV fluids [...] for most activities.I see her with a mosotho speaking staff member.She is in bed, wakes [...] OA, OP, and fibromyalgia. Genny Aguilar MD [address] [place] [address], [address], [place], [address], [facility] 04/14/2024 20:04:50 04/18/2024 text/html This is a 73 yo woman who is here for rehab after an ED visit for left leg pain after recovery from recent cellulitis.[facility] txed with ceftriaxone and [...] OP, and fibromyalgia. IBETH PRICE NP [address] [facility], [address], [place], [address], [facility] [employer] 04/18/2024 14:21:33 04/19/2024 text/html This is a [...] note per records:She [facility], txed with ceftriaxone and [...] outpt with pcp She was transferred to [facility] for rehab on 04/08 and working with rehab showing improvement and felt she is stable to discharge home. Vitals stable here and BP labile, last at 132/72 this am. While at [facility] she was seen by the wound team [...] 2024. She will be picked up by [facility] @ 1:00 PM. A referral has been made to [facility] for ongoing skilled services. She [...] 2024. She will be picked up by [facility] @ 1:00 PM. A referral has been made to [facility] for ongoing skilled services. She [...] she goes home from ER. discussed with church business administrator at facility Raiza Madsen NP [address] [facility], [address], [place], [address], [facility] 04/19/2024 13:13:44 OBGyn Episode No OBEpisode recorded.
--- OUTSIDE RECORDS SUMMARY | 2025-05-23 19:00 | XMS_ITS | Data Portability ---
Author Organization [facility], [email or web address] Address [address] [place] [address] Care Team Providers Care Web Content Director Name Role Phone HIM CCA OTHER CRUZ MAURICE Primary Care Provider Assessment Encounter Date Assessment Date Assessment LastModified by Organization Details LastModified Time 03/27/2024 03/27/2024 I provided real -time medical direction via phone for this encounter, and was available for additional phone based assistance as needed. I have reviewed and agree with the Assessment and Plan as documented by the Drying And Winding Supervisor. We discussed the diagnostic uncertainty of home visits and the risk associated with this. In this case I felt this to be an acceptable and reasonable amount of risk given the benefit of avoiding an ED visit. The patient /daughter given the opportunity to ask questions. Advised if develops CP/severe SOB/turning blue/uncontrolled n/v/d/AMS/ syncope/ hi fever /marked erythema or swelling of the left leg with severe pain to call 911- verbalized understanding of instruction [email or web address] Not available 03/27/2024 16:48:02 05/29/2024 05/29/2024 service called f or rash found 73 lori with hx poorly [...] 05/29/2024 17:22:24 09/25/2024 09/25/2024 As noted, we wer e called to see this patient regarding concerns of R ear pain. Evaluation in the field was performed by my city planning aide colleague, as noted above, I provided real-time [...] We discussed the need to seek care urgently/emergentl y in the setting of any new or worsening serious symptoms, particularly fever, worsening pain, loss of hearing, dizziness [email or web address] Not available 09/25/2024 17:38:29 02/26/2025 02/26/2025 I provided real -time medical direction via phone for this encounter, and was available for additional phone based assistance as needed. I have reviewed and agree with the Assessment and Plan as documented by the Drying And Winding Supervisor. We discussed the diagnostic uncertainty of home visits and the risk associated with this. In this case the patient and I felt this to be an acceptable and reasonable amount of risk given the benefit of avoiding an ED visit. The patient given the opportunity to ask questions. Advised if develops CP/severe SOB/turning blue/uncontrolled n/v/d or black/bloody emesis or stool/ AMS/ syncope/ hi fever/ intolerable leg pain or if leg becomes very hot red/ cold blue or numb to call 911- verbalized understanding of instruction [email or web address] Not available 02/26/2025 13:27:16 03/23/2025 03/23/2025 service called for left shoulder pain found 74 lori with hx HTN chronic back pain fibromyalgic OA osteoporisis kidney injury (Cr 2.8), recently improved (Cr 1.2) c/o continued left shoulder pain refractory to prescribed PO oxycodone denies new trauma or injury of note records 2025-03-11 and 2025-03-09 from [facility] show R shoulder XR with chronic degenerative findings VSS reported exam tender right and left shoulders #Shoulder pain history variable regarding which shoulder pain most bothersome taken as a whole, likely chronic degenerative changes in both shoulder with history kidney injury, relative contraindication to NSAID -refer PCP or ED -otherwise return to ptimary team [email or web address] Not available 03/23/2025 19:43:33 Plan of Treatment Reminders Order Date Submit Date Provider Last Modified By Organization Details Last Modified Time Details Appointments None recorded. Lab BMP, serum or plasma 2024 025 [facility], [address] [place] [address], [id number] 5 18:49:55 culture, urine 2023 024 [facility] (Centralized Electronic Ordering - All Locations), Patient Can Go To The Location Of Their Choice, [id number] 4 08:09:10 urinalysis, dipstick 2023 024 [facility], [address] [place] [address], [id number] 20:30:58 Referral None recorded. Procedures None recorded. Surgeries None recorded. Imaging None recorded. Medication Orders amoxicillin 875 mg-potassiu m clavulanate 125 mg tablet 2024 025 [facility], [address] [place] [address], [id number], 5 12:52:33 amoxicillin 500 mg-potassiu m clavulanate 125 mg tablet 2024 025 [email or web address] 0 [facility], [address] [place] [address], [id number], 5 12:44:30 bacitracin 500 unit/gram topical ointment 2024 025 [facility], [address] [place] [address], [id number], 5 12:52:29 furosemide 10 mg/mL injection solution 2024 025 [email or web address] 0 [facility], [address] [place] [address], [id number], 5 13:25:40 albuterol sulfate 2.5 mg/3 mL (0.083 %) solution for nebulizatio n 2024 025 [email or web address], [address] [place] [address], [id number], 5 12:44:30 albuterol sulfate 2.5 mg/3 mL (0.083 %) solution for nebulizatio n 2024 025 [facility], [address] [place] [address], [id number], 5 12:52:33 albuterol sulfate HFA 90 mcg/actuati on aerosol inhaler 2024 025 [facility], [address] [place] [address], [id number], 5 12:52:28 Ciprodex 0.3 %-0.1 % ear drops,suspe nsion 2024 025 [facility], [address] [place] [address], [id number], 5 12:33:11 clotrimazol e 1 % topical cream 2023 024 [facility], [address] [place] [address], [id number], 4 10:37:01 bacitracin 500 unit/gram topical ointment 2023 024 [email or web address] 0 [facility], [address] [place] [address], [id number], 4 11:28:20 bacitracin 500 unit/gram topical ointment 2023 024 [facility], [address] [place] [address], [id number], 14:30:32 Patient TargetsNo targets recorded. Patient Instructions Encounter Date Encounter Id Patient Instructions Last Modified By Organization Details Last Modified Time 03/27/2024 [id number] wound care* [email or web address] Not available 11:28:21 Reason for Referral None Reported. Results Created Date Observation Date Name Description Value Unit Range Abnormal Flag Note LastModifiedBy Organization Detail LastModifiedTime 05/29/2005/31/2024 URINE CULTU RE,CO MPREH ENSIV E urine culture,comp rehensive Final report Not Available [facility] ([facility]) [address] [place], [address], 05/31/2024 08:09:10 05/29/2005/31/2024 URINE CULTU RE,CO MPREH ENSIV E result 1 COMMEN T Mixed uroge nital mary Great er than 100,0 00 colon y formi ng units per mL Not Available [facility] ([facility]) [address] [facility], [place], [address], 05/31/2024 08:09:10 Result Notes None recorded. Problems Name Problem SNOMED Code Status Onset Date Resolution Date Notes Provider Name and Address Organization Details Recorded Time Essential hypertensio n 42497196 Active 2022 Len Nguyen MD [address] [place] [address],[address], [place], [address], RF Code, [employer] 18:59:08 Arterial insufficien cy 796267993 Active 2023 Len Nguyen MD [address] [facility],[address], [place], [address], RF Code, [employer] 18:58:53 Asthma 136094786 Active 2023 Len Nguyen MD [address] [facility],[address], [place], [address], RF Code, [employer] 18:59:00 Atrial fibrillatio n 52407582 Active 2023 Len Nguyen MD [address] [place] [address],[address], [place], [address], [place] [facility] [employer] 18:59:03 Arthritis 2324799 Active 2023 Len Nguyen MD [address] [place] [address],[address], [place], [address], [place] [employer] 18:58:58 Chronic kidney disease stage 3B 347388793 Active 2023 Len Nguyen MD [address] [place] [address],[address], [place], [address], [place] [employer] 18:58:51 Chronic diastolic heart failure 212693703 Active 2024 Len Nguyen MD [address] [place] [address],[address], [place], [address], [place] [employer] 18:58:42 Hyperglycem ia due to type 2 diabetes mellitus 9490870868567 09 Active 2024 Len Nguyen MD [address] [place] [address],[address], [place], [address], [place] [employer] 18:58:45 Moderate recurrent major depression 78521374 Active 2024 Len Nguyen MD [address] [place] [address],[address], [place], [address], [place] [employer] 18:58:37 Morbid obesity 813971644 Active 2024 Len Nguyen MD [address] [place] [address],[address], [place], [address], [place] [employer] 18:58:39 Problem Notes None recorded. Medical Equipment None Reported. Allergies Allergen ID Allergen Name Allergen Category Reaction Reaction Severity Criticality Documentation Date Start Date Code Code System Note Provider Name and Address Organization Details Recorded Time 28198 hydrocodo ne Not available Not available Not available Not available 03/23/2025 5489 RxNorm Len Nguyen MD [address] [place] [address],[address], [place], [address], [place] [facility] [employer] 18:59:23 5119 codeine medicatio n Not available Not available Not available 12/30/2023 2670 RxNorm Not Available [employer] 5 10:35:11 Medications Name Sig [...] mg/3 mL (0.083 %) solution for nebulization INHALE 1 AMPULE USING A NEBULIZER EVERY 6 HOURS active Not Available Not Available No [...] 500 unit/gram topical ointment APPLY TOPICALLY TO AFFECTED AREA(S) TWICE DAILY FOR 10 DAYS active Not Available Not Available Not Available melatonin 3 mg tablet TAKE 1 TABLET BY MOUTH AT BEDTIME active Not Available Not Available No t Available amlodipine 5 mg tablet TAKE 1 TABLET BY MOUTH EVERY MORNING active Not Available Not Available No t Available omeprazole 40 mg capsule,lenora yed release TAKE 1 CAPSULE BY MOUTH EVERY MORNING BEFORE BREAKFAST, DO NOT BREAK, CRUSH, DISSOLVE OR CHEW [...] active Not Available Not Available Not Available gabapentin 300 mg capsule TAKE 1 CAPSULE BY MOUTH TWICE DAILY IN THE MORNING [...] 1 CAPSULE BY MOUTH THREE TIMES DAILY IN THE MORNING, EVENING, AND BEDTIME active Not Available Not Available Not Available albuterol sulfate HFA 90 mcg/actuatio n aerosol inhaler INHALE 2 PUFFS BY MOUTH FOUR TIMES DAILY NEEDED active Not Available Not Available No t Available paroxetine 40 mg tablet TAKE 1 [...] amoxicillin 875 mg-potassium clavulanate 125 mg tablet TAKE 1 TABLET BY MOUTH EVERY TWELVE HOURS AFTER MEALS FOR 7 DAYS active Not Available Not Available No t Available oxycodone 5 mg tablet active Not [...] Not Available Not Available Not Available FreeStyle Lite Strips USE DIRECTED TO TEST BLOOD SUGAR THREE TIMES DAILY active Not Available Not Available Not Available calamine 8 %-zinc oxide 8 % lotion APPLY TO THE AFFECTED AREA(S) TOPICALLY TWICE DAILY NEEDED FOR ITCHING active Not Available Not Available Not Available FreeStyle Alton Lite kit USE DIRECTED TO TEST BLOOD [...] Available Not Available No t Available BD Ultra-Fine Sheyla Pen Needle 32 gauge x USE DIRECTED WITH INSULIN active Not Available Not Available [...] Available Not Available No t Available Trulicity 1.5 mg/0.5 mL subcutaneous pen injector INJECT ONE PEN (=1.5MG) SUBCUTANEOU SLY ONCE A WEEK DIRECTED active Not Available Not Available No t Available Trulicity 0.75 mg/0.5 mL subcutaneous pen injector INJECT ONE PEN (=0.75MG) SUBCUTANEOU SLY ONCE A WEEK DIRECTED active Not Available Not Available No t Available Tresiba FlexTouch U-200 insulin 200 unit/mL (3 mL) subcutaneous pen INJECT 64 UNITS SUBCUTANEOU SLY EVERY DAY active Not Available Not Available No t Available Lokelma 10 gram oral powder packet DISSOLVE 1 PACKET DIRECTED AND TAKE BY MOUTH EVERY WEDNESDAY, WEDNESDAY, AND WEDNESDAY active Not Available Not Available N ot Available FreeStyle Mickey 2 Sensor kit USE DIRECTED TO TEST BLOOD SUGAR CHANGE EVERY 14 DAYS active Not Available Not Available No t Available FreeStyle Mickey 2 Winona USE DIRECTED EVERY 8 HOURS active Not Available Not Available No t Available Trulicity 3 mg/0.5 mL subcutaneous pen injector INJECT ONE PEN (= 3MG) SUBCUTANEOU SLY ONCE A WEEK DIRECTED active Not Available Not Available No t Available Vitals Date Recorded Body temperature Respiratory rate Oxygen saturation Oxygen saturation in Arterial blood by Pulse oximetry Heart rate Systolic And Diastolic Provider Name and Address Organization Details Last Updated DateTime 5 99.2 [degF] 14 /min 98 % 98 % 60 /min 108/57 mm[Hg] Not Available Values of n 5 17:25:24 Date Recorded Body height Body mass index (BMI) Body weight Provider Name and Address Organization Details Last Updated DateTime 02/26/2025 134.62 cm 61.5 kg/m2 762997 g Radha Foster MD [address] [facility],[address] [facility], [place], [address], [place] - [employer] 02/26/2025 17:57:17 Date Recorded Oxygen saturation Oxygen saturation in Arterial blood by Pulse oximetry Respiratory rate Heart rate Body temperature Systolic And Diastolic Provider Name and Address Organization Details Last Updated DateTime 5 92 % 92 % 18 /min 68 /min 98.8 [degF] 152/84 mm[Hg] Not Available [employer] 5 12:10:50 Date Recorded Oxygen saturation Oxygen saturation in Arterial blood by Pulse oximetry Body weight Body temperature Respiratory rate Heart rate Body height Systolic And Diastolic Provider Name and Address Organization Details Last Updated DateTime 5 98 % 98 % 907154. 08 g 99 [degF] 16 /min 72 /min 154.94 cm 141/71 mm[Hg] Not Available [employer] - production 5 18:57:20 Date Recorded Respiratory rate Oxygen saturation Oxygen saturation in Arterial blood by Pulse oximetry Body height Heart rate Body temperature Body weight Systolic And Diastolic Provider Name and Address Organization Details Last Updated DateTime 4 16 /min 94 % 94 % 157.48 cm 60 /min 98.7 [degF] 932278. 448 g 129/77 mm[Hg] Not Available [employer] 4 11:19:40 Date Recorded Heart rate Body height Body temperature Respiratory rate Oxygen saturation Oxygen saturation in Arterial blood by Pulse oximetry Body weight Systolic And Diastolic Provider Name and Address Organization Details Last Updated DateTime 4 58 /min 134.62 cm 99.3 [degF] 16 /min 95 % 95 % 613856. 632 g 150/73 mm[Hg] Not Available Values of n 4 17:02:13 Social History None recorded. Functional Status None recorded. Mental Status None recorded. Family History Nothing Reported. Medical History No medical history recorded. Gynecological HistoryNo gynecological history recorded. Obstetrics History GPAL:G 0 P 0 0 0 0 Past Encounters Encounter ID Performer Location Encounter Start Date Encounter Closed Date Diagnosis/Indication Diagnosis SNOMED-CT Code Diagnosis ICD10 Code Diagnosis IMO Codes Diagnosis Note [id number] Radha Foster MD [facility] [address] [place] [phone] 12/30/2023 14:10:14 12/31/2023 21:23:21 Cellulitis of lower limb 872914039 L03.119 left lower leg primarily ? starting [...] better staph coverage-a dvised to apply sparingly. [id number] Radha Foster MD [facility] [address] [place] [phone] 02/09/2024 16:16:11 02/10/2024 13:33:55 Cellulitis of lower limb 417833120 L03.119 left lower leg primarily, less on right- had percocet 10/325 q 12 hrs- no longer on med list-may have otc tylenol 4 x per day in between-da segundo confirms he has regular Tylenol at homeAdvise [...] better staph coverage-a dvised to apply sparingly. [id number] Angely Lake MD [facility] [address] [place] [phone] 02/23/2024 15:31:54 02/23/2024 22:21:20 Peripheral vascular disease 385105289 I73.9 73 year old female being evaluated [...] assessment and plan as documented by the city planning aide. I provided real-time medical direction for this encounter and was immediatel y available to provide additional phone-base d assistance as needed. We discussed the diagnostic uncertaint y of home visits and associated risks. We discussed the need to seek care urgently/e mergently in the setting of any new or worsening symptoms. [id number] aRdha Foster MD Main - [address] [phone] 03/27/2024 11:19:23 03/27/2024 22:47:07 Wound of skin 073463927 T14.8XXA Advised to elevate the leg/not use [...] reviewed she is only allergic to codeine. [id number] Len Nguyen MD [facility] [address] [place] [phone] 05/29/2024 17:02:10 05/30/2024 10:24:58 Tinea cruris 129819726 B35.6 Urinary symptoms 4722154 08 R39.9 [id number] Michelle Rg MD [facility] - [facility] [address] [place] [phone] 09/25/2024 17:25:19 09/26/2024 08:34:36 Otitis externa of right ear 7595124886 883055 H60.91 [id number] Radha Foster MD [facility] [address] [phone] 02/26/2025 12:10:42 02/26/2025 19:21:42 Peripheral edema 223956394 R60.0 87095 w/ cellulitis LLE-doubt DVT given no calf [...] exac erbation of chronic obstructive pulmonary disease 187836808 J44.1 706904 Status post neb sat 99% heart rate 71 and breath sounds clear- feels good/Needs to use 02 2lNC- sent in new albuterol mdi and nebulizer rx-patient 's nebulizer and her albuterol which may be outdated is at her daughters and she has run out of her albuterol MDI so new Rx sent. Advised using regularly will help with chronic dyspnea on exertion. [id number] Len Nguyen MD [facility] [address] [phone] 03/23/2025 18:57:16 03/23/2025 23:47:02 Bilateral chronic pain of upper limbs 7641244092 2055281 M25.511 M25.512 G89.29 82992954 Health Concerns Section Related Observation LastModified by Organization Detai ls LastModified Time None Recorded Concern Status LastModified by Organization Details LastModified Time None Recorded Advance Directives Directive None Recorded Payers Insurance Date Sequence Insurance Name Policy Number Policy Meza Covered Member ID Meza Member ID Guarantor Name 03/23/2025 1 [facility] - DOS ON OR AFTER 2022 - DUAL ELIGIBLE - SKILLED NURSING OPTIONS AND ONE CARE (MEDICARE REPLACEMENT/ADV ANTAGE - HMO) Mary Lou Cisneros [id number] Mary Lou Cisneros Notes Date Note Type Note Provider Name and Address Organization Details Recorded Time 03/27/20 24 text/ht ml ROS as noted in the HPI CRC Nurse Triage Notes (Rishi Domínguez): Reason For Request: left leg pain Chief Complaints: Pain PMH: Diabetes, Hypertension, COPD/Asthma Other Allergies: NKDA Comments: Hot Stamp Operator verified the member's name//address and phone number. [...] remains warm to the touch. Denies SOB ................................. ................................. ................................. ................................. ......... Drying And Winding Supervisor Note From Markell Villagomez: Pt s daughter/CG reports pt was seen at [facility] last week for cellulitis of the [...] instructed to f/u with wound clinic today. ................................. ................................. ................................. ................................. ......... Disposition: Fulfilled Radha Foster MD [address] [facility],[address], [place], [address], [facility] - [employer] 03/27/2024 16:49:56 05/29/20 24 text/ht ml HPI: pmhx: UTI, candidiasis of vagina UTI, urine retention.Call returned to [facility] to triage below. Reports having rash on callie area x 1 week. Per daughter no fluid filled spots. Small red pin point spots. Pt also having urinary frequency. Has applied Vaseline to area with mild relief. Per daughter concerned as pt is DM and has been scratching area concerned for infection. Unable to bring pt to WIC at [facility] as pt is bed bound. Agrees to [email or web address] referral. Confirmed address, contact number and allergies. ................................. ................................. ................................. ................................. ......... CRC Nurse Triage Notes (Melinda Melvin): Chief Complaints: Rash, UTI/Pyelonephritis PMH: COPD/Asthma, Diabetes, Hypertension, COPD/Asthma Other Allergies: CODIENE Comments: CRC RN did not require any additional information to process this visit. Drying And Winding Supervisor Organization Information for Jerman Anderson Business Legal Name: [employer]. Address: [address] [place] [address], Assistant To The Director: Jhon HERNANDEZ No.: [id number] Drying And Winding Supervisor POC Test Results from Jerman Anderson Blood Glucose Measurement (16:52:17) Blood Glucose: 335 mg/dL Urine Dipstick (16:52:27) Urine leukocytes: + ALVIN Urine nitrites: + NIT Urine urobilinogen: - URO Urine protein: +/- PRO Urine pH: 6.0 pH Urine blood: 50 lesli/ul BLO Urine specific gravity: 1.005 SG Urine ketones: - KET Urine bilirubin: - ROSI Urine glucose: ++++ GLU ................................. ................................. ................................. ................................. ......... Drying And Winding Supervisor Note From Jerman Anderson: [facility] visit for female pt. Pt presents with family and SONG WRITER. Pt has reportedly had redness and irritation in her groin for 1 week in addition to high blood sugars. V/S taken as listed. Pt afebrile, though temp seems to be elevated with pt having taken acetaminophen today. SONG WRITER changed pt's diaper and redness was noted in addition to smell consistent with possible fungal infection. Obtained urine sample positive for leukocytes and nitrates and blood and glucose. Blood glucose elevated at 335 mg/dL. Family reports difficulty maintaining blood sugar and that pt has not adhered to dietary restrictions. Urine culture obtained. Consulted with [facility]. Nguyen who prescribed clotrimazole and ordered urine culture. Reviewed red flags for ED. Pt education provided. Culture delivered to [facility]. [facility] Lab Orders: culture, urine: Performed ................................. ................................. ................................. ................................. ......... Disposition: Fulfilled Len Nguyen MD [address] [place] [address],[address], [place], [phone], [employer] 05/29/2024 22:50:45 09/25/19 25 text/ht ml CRC Nurse Triage Notes (Margarita Verde RN): [...] s/s and seek emergency treatment if needed. Drying And Winding Supervisor Organization Information for Markell Villagomez Business Legal Name: [facility] Address: [address] [place] [address], Assistant To The Director: Rob Bhagat MD CLIA No.: [id number] Drying And Winding Supervisor POC Test Results from Markell Villagomez Rapid [...] reported s/s and seek emergency treatment if needed.[facility] HPI: known FM, chronic pain, uses oxycodone and gabapentin for this. 3-7d R ear pain. some sinus congestion ................................. ................................. ................................. ................................. ......... Drying And Winding Supervisor Note From Markell Villagomez: This 74-year-old [...] questions and are agreeable to this plan. ................................. ................................. ................................. ................................. ......... [facility] Consulted: iMchelle Rg ................................. ................................. ................................. ................................. ......... Disposition: Mathew Rg MD [address] [place] [address],[address], [place], [address], [employer] 09/25/2024 18:01:43 02/27/20 25 text/ht ml ROS as noted in the [facility] CRC Nurse Triage Notes (Agustín Shipley): Reason For Request: Pt's SONG WRITER reporting discoloration changes in her legs (redness)Denies: [...] 74 y.o female complains of Extremity PainPatient's SONG WRITER calling reporting patient is having red discoloration to L lower leg for the last two weeks. SONG WRITER reports this has happened before and the [...] H&H on 08/02/2024 was 7.4 and 25.3 Drying And Winding Supervisor Organization Information for Garrick El Josh Kapadia Legal Name: [employer]. Address: [address] [place] [address], Assistant To The Director: Jhon HERNANDEZ No.: [id number] Drying And Winding Supervisor POC Test Results from [place] [facility] iSTAT Chem8+ (12:24:44) Na: 135 mEq/L K: 4.2 mEq/L Cl: 93 mEq/L iCa: 1.05 mmol/L TCO2: 32 mmol/L Glu: 264 mg/dL BUN: 23 mg/dL Crea: 1.4 mg/dL Hct: 24 % Hb: 8.2 g/dL A mmol/L Cartridge Number: [id number] Attachments uploaded as part of this test result can be found under Documents section. ................................. ................................. ................................. ................................. ......... Drying And Winding Supervisor Note From [place]: Encountered patient supine and conscious with family [...] or inflammation. BMP performed, values uploaded via [employer]. Skin warm, dry and of appropriate color [...] below the knee; peripheral pulses present throughout. [facility] contacted: reports they will treat patient for a suspected infection while also addressing possible fluid retention. Augmentin x1 administered. Albuterol neb treatment x1 administered. 40mg IM Furosemide administered. All medications administered after reconciling r ights with patient and family. [facility] reports they will send a prescription for [...] states she is comfortable remaining home today. [facility] Lab Orders: BMP, serum or plasma: Performed [facility] Medication Orders: amoxicillin 500 mg-potassium clavulanate 125 mg tablet: Administered furosemide 10 mg/mL injection solution: Administered albuterol sulfate 2.5 mg/3 mL (0.083 %) solution for nebulization: Administered ................................. ................................. ................................. ................................. ......... [facility] Consulted: Radha Foster ................................. ................................. ................................. ................................. ......... Disposition: Mathew Foster MD [address] [facility],[address], [place], [address], [employer] 02/26/2025 18:08:10 03/23/20 25 text/ht ml CRC Nurse Triage Notes (Rishi Domínguez): Reason For Request: pt experiencing extreme pain in left arm Denies: Falls with head strike and LOC Falls from a standing position, no LOC, patient is amnestic to the event Falls with isolated injury and deformity noted to limb Falls with inability to move post fall Cool extremities after fall or injury Weakness with fall, able to move all extremities Chief Complaints: Extremity Pain PMH: Hypertension, COPD/Asthma, Chronic Back Pain, Fibromyalgia, Osteoarthritis, Osteoporosis PMH Reviewed at 03/23/2025 Allergies Reviewed at 03/23/2025:32 Comments: 74 y.o female complains of Extremity Pain - Symptoms started today Caregiver reports the pt is feeling unwell with left arm pain - History of same Seen in the emergency room last week with a negative work up Denies chest pain - Denies shortness of breath - Denies dizziness - Denies fever - Denies any recent falls or injury Taking prescribed pain medications with no relief Wellness check requested I provided information on the mobile health provider response time and advised the patient and/or caregiver to monitor reported signs and symptoms. I discussed the warning signs of when to seek emergency care. ................................. ................................. ................................. ................................. ......... Drying And Winding Supervisor Note From [facility]: Critical access hospital visit for female patient complaining of left shoulder pain. Patient is Tajik-speaking and an net web developer was used by phone throughout visit. Patient reports recent trip to the emergency department for same issue. Patient told she was prescribed oxycodone for C risis in the shoulder requiring surgery . Patient did not know the formal diagnosis that she got. Patient presents appearing well sitting in wheelchair in apartment. Patient reports severe left shoulder pain. Patient has been taking 5 mg oxycodone Q6 hours and experiencing breakthrough pain on top of that. Patient states her doctor told her not to take NSAID pain relievers. Vital signs taken is listed. Patient afebrile. Consulted with [facility] doctor timothy who advised that do patients chronic kidney disease we would not be able to administer NSAIDs or any other pain agents at this time. Patient told that she would have to follow up with primary care or go to the emergency department for any stronger pain medication. Patient education provided. ................................. ................................. ................................. ................................. ......... [facility] Consulted: Len Nguyen ................................. ................................. ................................. ................................. ......... Disposition: Fulfilled Len Nguyen MD [address] [facility],[address], [place], [address], [place] 03/23/2025 22:05:38 OBGyn Episode No OBEpisode recorded.
== END 2025-05-23 18:31 | disposition home or self-care (01) ==
PROVIDERS: Emergency Provider Emergency Medicine
DX: L03.113 Cellulitis of right upper limb (principal); M17.12 Unilateral primary osteoarthritis, left knee; M19.011 Primary osteoarthritis, right shoulder; M25.511 Pain in right shoulder; M79.672 Pain in left foot; M25.562 Pain in left knee; I25.10 Atherosclerotic heart disease of native coronary artery without angina pectoris; E11.9 Type 2 diabetes mellitus without complications; I10 Essential (primary) hypertension; Z79.899 Other long term (current) drug therapy; Z79.4 Long term (current) use of insulin
CPT/HCPCS: 36415; 73201; 73560; 73630; 80053; 82947; 83735; 85025; 99284; J0131; J2270; Q9967

== ENCOUNTER → 2025-05-23 14:14 | Outpatient (BNV) | payer OTHER, SELFPAY | PROVIDERS: Emergency Provider Emergency Medicine; Visit Provider Radiology Diagnostic Radiology | DX: M19.011 Primary osteoarthritis, right shoulder (principal); M17.12 Unilateral primary osteoarthritis, left knee; M25.462 Effusion, left knee; I70.202 Unspecified atherosclerosis of native arteries of extremities, left leg; M19.071 Primary osteoarthritis, right ankle and foot; M77.32 Calcaneal spur, left foot; M61.472 Other calcification of muscle, left ankle and foot | CPT/HCPCS: 73201; 73560; 73630 ==

== ENCOUNTER 2025-05-29 21:15 | Emergency (ER) | payer OTHER, SELFPAY ==
--- OUTSIDE RECORDS SUMMARY | 2025-03-06 06:50 | XMS_ITS ---
Author Organization [facility] Address [address] [place] [address] Care Team Providers Care Watershed Coordinator Name Role Phone Amanda Adame M.D. Primary Care Provider Geoff Leon Jr, João Marie REASON FOR VISIT anemia Encounters Encounter Location Date Provider Diagnosis [facility] [place] [address] [place], [place] [id number] 03/06/2025 João Leon Jr Plan Of Treatment Next Appt Details Provider Name:João yañez Jr, 07/26/2025 02:15:00 PM, [address], [address], [place], [address], Progress Notes * JP MORGANDOB:[birth year] (74 yo F)Acc No.[id number]:03/06/2025 EGD and COL/MAC Patient: JP HINKLE Provider: Shannan Leon MD :1950 A ge:74 Y S ex:Female Date:03/06/2025 Address:[address] [place] [address] [address] , [place], [place] Pcp:Amanda Adame M.D. Subjective: * Chief Complaints: [...] 03/06/2025 Generated for Selene garcia/Thad/Miriamitting on: 1 10:03 PM EDT
[2025-05-29 21:26] VITALS: BP 141/57; PULSE 67; RESP 20; TEMP 37; O2SAT 99; BMI 41.6
[2025-05-29 21:46] LABS: Glucose, Whole Blood 523 mg/dL (60-115)
[2025-05-29 21:48] LABS: MANUAL DIFF FLAG NO
[2025-05-29 21:49] LABS: Hematocrit 34.3 % (37.0-47.0); Hemoglobin 11.4 g/dl (12.0-16.0); Imm Gran Abs Auto 0.02 X10*3/uL (0.00-0.03); Imm Gran Pct Auto 0.4 % (0.0-0.4); Lymphocytes Absolute Auto 1.3 X10*3/uL (1.2-4.9); Mean Corpuscular HGB Conc 33.2 g/dl (31.0-35.0); Mean Corpuscular Hemoglobin 26.5 pg (27.0-33.0); Mean Corpuscular Volume 79.6 fL (80.0-98.0); NRBC Abs Auto 0.000 X10*3/uL (0.0-0.012); NRBC Pct Auto 0.0 /100WBC (0.0-0.2); Platelet Count 178 X10*3/uL (160-400); Red Blood Count 4.31 X10*6/uL (4.20-5.50); White Blood Count 4.9 X10*3/uL (4.8-10.8)
--- OUTSIDE RECORDS SUMMARY | 2025-05-29 22:02 | XMS_ITS | Encounter Summary ---
Author Organization [employer] Address [address] [facility] [address] [place] [address] Care Team Providers Care Manager Law Name Role Phone Amanda Watkins MD Primary Care Provide r Hiro Ram ENVIRONMENTAL HEALTH AND SAFETY MANAGER Unavailable Unavailable Raad Arias PharmD Unavailable [phone] Reason for Visit * Reason Comments Med Refill Encounter Details Date Type Department Care Team (Late st Contact Info) Description 02/11/2024 Refill [facility] [address] [place] [address] Amanda Watkins MD [address] [place], [place] [phone] Type 2 diabetes mellitus with other specified complication, unspecified whether long term care phlebotomist insulin use ([facility]) Social History Tobacco Use Types Packs/Day Years [...] Care Team (Late st Contact Info) Description 07/09/2025 3:30 PM EST Office Visit [facility] [address] [place] [phone] Amanda Watkins MD [address] [place] [phone] documented as of this encounter Visit Diagnoses Diagnosis Type 2 diabetes mellitus with other specified complication, unspecified whether long term care phlebotomist insulin use ([facility]) documented in this encounter Additional Health Concerns Assessment Noted Time PHQ-9 Depression Total Score: 10 024 3:23 PM EDT documented as of this encounter Care Teams Manager Law Relationship Specialty Start Date End Date Amanda Watkisn MD [address] [place] [phone] PCP - General Family Medicine 04/07/19 Hiro Ram FNP [address] [place] [address] Nurse Practitioner Family Medicine 07/06/23 Raad Arias, TheaD [address] [place] [phone] Pharmacist Internal Medicine 10/19/24 [facility] 08/16/24 Ja [facility] 08/10/24 03/12/25 [facility] 03/08/25 documented as of this encounter
[2025-05-29 22:03] LABS: Anion Gap 13 (12-20); Blood Urea Nitrogen 23 mg/dL (9-16); Calcium 8.9 mg/dL (8.4-10.2); Carbon Dioxide 31 mmol/L (22-29); Chloride 93 mmol/L (96-108); Creatinine Clr Calc Pharmacy 41.7; Estimated Glomerular Filt Rate 36; Potassium 4.3 mmol/L (3.3-5.1); Sodium 133 mmol/L (135-145)
--- OUTSIDE RECORDS SUMMARY | 2025-05-29 22:03 | XMS_ITS | Encounter Summary ---
Author Organization [employer] Address [address] [facility] [address] [place] [address] Care Team Providers Care Bale Breaker Operator Name Role Phone Amanda Watkins MD Primary Care Provide r Hiro Ram CHEMICAL MACHINE TENDER Unavailable Unavailable Raad Arias PharmD Unavailable Reason for Visit * Reason Onset Date Comments Durable Medical Equipment 07/26/2024 Encounter Details Date Type Department Care Team (Late st Contact Info) Description 07/26/2024 Telephone [facility] [address] [place] [address] Amanda Watkins MD [address] [place] [address] Durable Medical Equipment Social History Tobacco Use [...] Description 07/09/2025 3:30 PM EST Office Visit [facility] [address] [place] [phone] Amanda Watkins MD [address] [place] [address] documented as of this encounter Visit Diagnoses Not on filedocumented in this encounter Additional Health Concerns Assessment Noted Time PHQ-9 Depression Total Score: 10 024 3:23 PM EDT documented as of this encounter Care Teams Bale Breaker Operator Relationship Specialty Start Date End Date Amanda Watkins MD [address] [place] [address] [phone] PCP - General Family Medicine 04/07/19 Hiro Ram FNP [address] [place] [address] Nurse Practitioner Family Medicine 07/06/23 Raad Arias, PharmD [address] [place] [address] Pharmacist Internal Medicine 10/19/24 [facility] 07/03/22 08/16/24 Ja [facility] 08/10/24 03/12/25 [facility] 03/08/25 documented as of this encounter
--- OUTSIDE RECORDS SUMMARY | 2025-05-29 22:03 | XMS_ITS | Encounter Summary ---
Author Organization [employer] Address [address] [place] [address] 7[address] [place] [address] Care Team Providers Care Ukrainian Folk Arts Instructor Name Role Phone Amanda Watkins MD Primary Care Provide r Hiro Ram RESTAURANT GENERAL MANAGER Unavailable Unavailable Raad Arias PharmD Unavailable [phone] Encounter Details Date Type Department Care Team ([facility] st Contact Info) Description 09/06/2024 Orders Only [facility] [address] [place], [place] [phone] MiltonWaldemar Chance MD [address] [place] [address] Social History Tobacco Use Types Packs/Day Years [...] Description 07/09/2025 3:30 PM EST Office Visit [facility] [address] [place] [phone] Amanda Watkins MD [address] [place] [phone] documented as of this encounter Visit Diagnoses Not on filedocumented in this encounter Additional Health Concerns Assessment Noted Time PHQ-9 Depression Total Score: 0 09/01/19 25 1:18 PM EST documented as of this encounter Care Teams Ukrainian Folk Arts Instructor Relationship Specialty Start Date End Date Amanda Watkins MD [address] [place] [phone] PCP - General Family Medicine 04/07/19 Hiro Ram FNP [address] [place] [address] Nurse Practitioner Family Medicine 07/06/23 Raad Arias, TheaD [address] [place] [phone] Pharmacist Internal Medicine 10/19/24 Ja [facility] 08/10/24 03/12/25 [facility] 03/08/25 documented as of this encounter
--- OUTSIDE RECORDS SUMMARY | 2025-05-29 22:03 | XMS_ITS | Encounter Summary ---
Author Organization [email or web address] Address [address] [facility] [address] [place] [address] Care Team Providers Care Food General Manager Name Role Phone Amanda Watkins MD Primary Care Provide r Hiro Ram BULK FILLER Unavailable Unavailable Raad Arias PharmD Unavailable [phone] Reason for Visit * Reason Onset Date Comments Hospital Follow-up 03/23/2024 Encounter Details Date Type Department Care Team (Late st Contact Info) Description 03/23/2024 Telephone [facility] [address] [place] [address] Amanda Watkins MD [address] [place], [place] [phone] Hospital Follow-up Social History Tobacco Use Types [...] from pt requesting a HDF appt. Hospital: [facility] Date of admission: 03/18 Discharge date: 03/21 Diagnosed: Cellulitis documented in this encounter Plan of Treatment Upcoming Encounters Date Type Department Care Team (Late st Contact Info) Description 07/09/2025 3:30 PM EST Office Visit [facility] [address] [place] [phone] Amanda Watkins MD [address] [place] [address] documented as of this encounter Visit Diagnoses Not on filedocumented in this encounter Additional Health Concerns Assessment Noted Time PHQ-9 Depression Total Score: 10 024 3:23 PM EDT documented as of this encounter Care Teams Food General Manager Relationship Specialty Start Date End Date Amanda Watkins MD [address] [place] [phone] PCP - General Family Medicine 04/07/19 Hiro Ram FNP [address] [place] [address] Nurse Practitioner Family Medicine 07/06/23 Raad Arias, TheaD [address] [place] [address] Pharmacist Internal Medicine 10/19/24 [facility] 07/03/22 08/16/24 Ja [facility] 08/10/24 03/12/25 [facility] 03/08/25 documented as of this encounter
--- OUTSIDE RECORDS SUMMARY | 2025-05-29 22:03 | XMS_ITS | Clinical Summary ---
Author Organization [employer] Address [address] [place] [address] Care Team Providers Care Nitro Worker Name Role Phone Amanda Watkins MD Primary Care Provide r Hiro Ram LEGAL ENTITY CONTROLLER Unavailable Unavailable Raad Arias PharmD Unavailable [phone] Allergies Active Allergy Reactions Criticality Noted Date [...] hyperglycemia, with long-term current use of insulin (HCC) Use to test blood sugar 3 times daily 100 each 12 024 2024 Active Blood Glucose Monitoring Suppl (FreeStyle [place] Lite) w/Device kitIndications:Ty pe 2 diabetes mellitus with hyperglycemia, with long-term current use of insulin (HCC) Use to test blood sugar 3 times [...] OR CHEW 30 capsule 11 025 Active hydrOXYzine HCl (Atarax) 25 MG tablet Take 1 tablet (25 mg) by mouth every 8 (eight) hours if needed for anxiety. 90 tablet 025 Active insulin degludec (Tresiba FlexTouch) 200 UNIT/ML injectionIndicati ons:Type 2 diabetes mellitus with hyperglycemia, with long-term current use of insulin ([facility]) Inject 64 units under the skin daily 18 mL 5 Active pen needle 32G x 4 mm miscIndications:T ype 2 diabetes mellitus with hyperglycemia, with long-term current use of insulin ([facility]) Use daily with insulin 100 each 3 025 2025 Active traZODone (Desyrel) 150 MG tabletIndications :Recurrent major depressive episodes, mild (CMS/HCC) Take 1 tablet (150 mg) by mouth at bedtime. 90 tablet 2 025 Active TRUEplus Lancets 33G miscIndications:T ype 2 diabetes mellitus with hyperglycemia, with long-term current use of insulin ([facility]) USE DIRECTED TO TEST BLOOD SUGAR THREE TIMES DAILY 100 each 5 025 Active Eye Itch Relief 0.035 % solutionIndicatio ns:Allergic conjunctivitis of both eyes INSTILL 1 DROP AFFECTED EYE(S) EVERY TWELVE HOURS NEEDED 10 mL 1 025 Active Oyster Shell Calcium 500 MG tablet TAKE 1 TABLET BY MOUTH TWICE DAILY IN THE MORNING AND AT BEDTIME 180 tablet 1 025 Active Eliquis 5 MG tabletIndications :Atrial fibrillation, unspecified type (CMS/HCC) (HCC) TAKE 1 TABLET BY MOUTH TWICE DAILY IN THE MORNING AND AT BEDTIME 60 tablet 2 025 Active albuterol (2.5 MG/3ML) 0.083% nebulizer solution Take 3 mL by nebulization every 6 (six) hours. 025 Active albuterol 108 (90 Base) MCG/ACT inhaler Inhale 1 puff if needed in the morning, at noon, in the evening, and at bedtime for wheezing or shortness of breath. 025 Active levothyroxine (Synthroid, Levoxyl) 100 MCG tablet Take 1 tablet (100 mcg) by mouth before breakfast. 90 tablet 025 Active lidocaine (Lidoderm) 5 % patchIndications: Primary osteoarthritis, right shoulder Apply 1 patch topically Once per day. Remove & discard patch within 12 hours or as directed by MD. 30 patch 1 025 Active ketoconazole (NIZOral) 2 % shampooIndication s:Seborrheic dermatitis Apply topically 2 (two) times a week. 120 mL 2 025 Active melatonin 5 MG tabletIndications :Primary insomnia Take 1 tablet (5 mg) by mouth at bedtime. 90 tablet 025 Active amLODIPine (Norvasc) 5 MG tablet TAKE 1 TABLET BY MOUTH EVERY MORNING 30 tablet 3 025 Active Alcohol Swabs (Alcohol Prep) 70 % padsIndications:T ype 2 diabetes mellitus with hyperglycemia (HCC) USE DIRECTED TO TEST BLOOD SUGAR THREE TIMES DAILY 100 each 025 Active Ferrocite 324 MG tablet Take 1 tablet by mouth Once per day. 025 Active Continuous Glucose Segmental Wall Installer (FreeStyle Mickey 3 [place]) deviceIndications :Type 2 diabetes mellitus with diabetic autonomic neuropathy, with long-term current use of insulin ([facility]) 1 each Once per day. Use as directed for CGM 1 each 025 Active Continuous Glucose Sensor (FreeStyle Mickey 3 Plus Sensor) miscIndications:T ype 2 diabetes mellitus with diabetic autonomic neuropathy, with long-term current use of insulin ([facility]) 1 each every 15 days. Apply 1 every 15 days as directed for CGM 2 each 025 Active atorvastatin (Lipitor) 80 MG tablet TAKE 1 TABLET BY MOUTH AT BEDTIME 90 tablet 1 025 Active Diclofenac Sodium 1 % gelIndications:De generative arthritis of thumb, right Apply 1 Application topically every 12 (twelve) hours if needed (apply if needed). 150 g 1 025 Active gabapentin (NEURONTIN) 400 MG tabletIndications :Chronic pain of both shoulders Take 1 tablet (400 mg) by mouth 3 times daily. 90 tablet 2 025 2025 Active Tirzepatide (Mounjaro) 7.5 MG/0.5ML solution auto-injectorIndi cations:Type 2 diabetes mellitus with hyperglycemia, with long-term current use of insulin (HCC) Inject 7.5 mg under the skin 1 (one) time per week. 2 mL 1 Active torsemide (Demadex) 20 MG tablet TAKE 1 TABLET BY MOUTH EVERY MORNING 30 tablet 3 Active docusate sodium (Colace) 100 MG capsuleIndication s:Slow transit constipation TAKE 1 CAPSULE BY MOUTH TWICE DAILY 60 capsule 3 Active DULoxetine (Cymbalta) [address] capsule TAKE 1 CAPSULE BY MOUTH EVERY MORNING 30 capsule 1 Active atorvastatin (Lipitor) 80 MG tablet TAKE 1 TABLET BY MOUTH EVERY EVENING 90 tablet 1 025 2024 Discontinued torsemide (Demadex) 20 MG tablet TAKE 1 TABLET BY MOUTH EVERY MORNING 30 tablet 3 025 2024 Discontinued gabapentin (Neurontin) 300 MG capsuleIndication s:Type 2 diabetes mellitus with diabetic autonomic neuropathy, with long-term current use of insulin (HCC) Take 1 capsule (300 mg) by mouth 2 times daily. 60 capsule 2 025 2024 Discontinued docusate sodium (Colace) 100 MG capsuleIndication s:Slow transit constipation Take 1 capsule (100 mg) by mouth 2 times daily. 60 capsule 1 025 2024 Discontinued oxyCODONE-acetami nophen (Percocet) 5-325 MG tabletIndications :Chronic bilateral low back pain with bilateral sciatica Take 1 tablet by mouth every 6 (six) hours if needed for severe pain for up to 28 days. Do not start before April 06, 2025. 112 tablet 025 2024 Tirzepatide (Mounjaro) 5 MG/0.5ML solution auto-injectorIndi cations:Type 2 diabetes mellitus with diabetic autonomic neuropathy, with long-term current use of insulin (HCC) Inject 5 mg under the skin 1 (one) time per week. 2 mL 3 025 2024 Discontinued DULoxetine (Cymbalta) [address] capsule Take 1 capsule (20 mg) by mouth in the morning. 30 capsule 025 2024 Discontinued Active Problems Problem Noted Date Diagnosed Date Degenerative arthritis of thumb, right Assessment & Plan (05/08/2025 12:22 PM EDT): Apply locally diclofenac gel every 12 hours as needed continue with same oxycodone dose Fibromyalgia 05/08/2025 Assessment & Plan (05/08/2025 12:23 PM EDT): Patient was educated about multidisciplinary approach for her condition, it was advise cardiovascular exercise, maintain hydration, treat anxiety/depression and take medications as directed Chronic pain of both shoulders 05/08/2025 Assessment & Plan (05/08/2025 12:22 PM EDT): I refer patient to pain management Continue with same dose of oxycodone, I let her know I do not think is a good idea to keep going up on the medication I increase her gabapentin to 400 mg every 8 hours Anemia 03/29/2025 Assessment & Plan (03/29/2025 2:58 [...] (major depressive disord er), recurrent episode, moderate (CMS/HCC) 02/15/2025 Morbid obesity (CMS/HCC) 02/15/2025 Assessment & Plan (02/15/2025 11:01 AM EDT): Today extensive discussion was done about life style modifications I advise healthy diet (low calorie) and cardiovascular exercise Long-term current use of opiate analgesic 2024 Type 2 diabetes mellitus wit h hyperglycemia, with long-term current use of insulin 09/01/2024 Assessment & Plan (05/08/2025 12:21 PM EDT): Diabetes is: not controlled - Lab Results Component Value Date HGBA1C 9.8 (A) 05/08/2025 HGBA1C 8.4 (A) 03/29/2025 HGBA1C 11.4 (H) 09/01/2024 - Lab Results Component Value Date MICROALBUR 66.2 08/04/2021 CREATININE 1.16 03/11/2025 -Changes: I increased her Mounjaro to 7.5 mg weekly - Diabetic eye exam: Pending - Diabetic foot exam: Pending - Continue lifestyle modifications Follow-up with pharmacy CDTM limb with me in 3 months Assessment & Plan (09/14/2024 7:45 PM EST): [...] Assessment & Plan (09/14/2024 6:46 PM EST): Blending Tank Tender Helper referral done today I advised not to [...] for patient Stage 3b chronic kidney disease ([facility]) 2023 Arthritis 04/24/2024 Bronchitis 04/24/2024 Obesity 04/24/2024 Atrial fibrillation ([facility]) 04/08/2024 Assessment & Plan (02/15/2025 10:55 AM [...] (12/06/2023 2:13 PM EDT): I will follow [facility] instructions and I will change her percocet [...] medications every day I advised low-sodium diet Blending Tank Tender Helper referral done today I advised to monitor [...] retiring, patient will be transferred to new [facility] psychiatric provider. Patient is aware that appointments will be via televisit. Any issues or concerns contact [facility]. All her questions were answered and [...] advise low-sodium diet I advised weight reduction Blending Tank Tender Helper referral done Assessment & Plan (12/06/2023 2:12 [...] and excersise -patient will be refer to resource engineer - Continue current medications, I can not [...] organization. Date Type Department Care Team Description 05/29/2025 Telephone [facility] [address] [place] [phone] Amanda Watkins MD Med Refill 05/28/2025 Refill [facility] [address] [place] [phone] Amanda Watkins MD Chronic bilateral low back pain with bilateral sciatica 05/25/2025 Refill [facility] [address] [place] [address] Amanda Watkins MD Chronic bilateral low back pain with bilateral sciatica (Primary Dx) 05/24/2025 Refill [facility] [address] [place] [phone] Amanda Watkins MD 05/16/2025 Refill [facility] [address] [place] [phone] Amanda Watkins MD Type 2 diabetes mellitus with diabetic autonomic neuropathy, with long-term current use of insulin ([facility]); Slow transit constipation 05/08/2025 10:15 AM EDT Office Visit [facility] [address] [place] [phone] Amanda Watkins MD Fibromyalgia (Primary Dx); Degenerative arthritis of thumb, right; Chronic pain of both shoulders; Type 2 diabetes mellitus with hyperglycemia, with long-term current use of insulin ([facility]) 05/08/2025 Travel 05/07/2025 Telephone [facility] [address] [place] [phone] Amanda Watkins MD 05/07/2025 Telephone [facility] [address] [place] [address] Amanda Watkins MD Chart Prep 05/07/2025 Refill [facility] [address] [place] [address] Amanda Watkins MD 05/04/2025 Telephone [facility] [address] [place] [address] Amanda Watkins MD Medication Question 04/30/2025 Telephone [facility] [address] [place] [phone] Amanda Watkins MD Appointment Request 04/23/2025 Patient Outreach [facility] [address] [place] [address] Amanda Watkins MD Pre-visit Planning (HDF scheduled. ) 04/23/2025 Refill [facility] [address] [place] [phone] Amanda Watkins MD 04/19/2025 Telephone [facility] [address] [place] [address] Amanda Watkins MD 04/17/2025 Orders Only GENERIC EXTERNAL DATA DEPARTMENT Provider, Generic External Data 04/17/2025 Telephone [facility] [address] [place] [phone] Amanda Watkins MD Nurse Triage 04/16/2025 Travel 04/13/2025 Refill [facility] [address] [place] [phone] Kayley Alanis RN Chronic bilateral low back pain with bilateral sciatica (Primary Dx) 04/11/2025 Refill [facility] [address] [place] [phone] Amanda Watkins MD Type 2 diabetes mellitus with hyperglycemia (CMS/HCC) 04/08/2025 Refill [facility] [address] [place] [address] Amanda Watkins MD 04/02/2025 Refill [facility] [address] [place] [phone] Amanda Watkins MD Chronic bilateral low back pain with bilateral sciatica 03/29/2025 2:00 PM EDT Office Visit [facility] [address] [place] [address] Amanda Watkins MD Seborrheic dermatitis (Primary Dx); Type 2 diabetes mellitus with diabetic autonomic neuropathy, with long-term current use of insulin (CMS/HCC); Anemia, unspecified type; Chronic gastritis, presence of bleeding unspecified, unspecified gastritis type; Primary osteoarthritis, right shoulder; Slow transit constipation; Primary insomnia; Cellulitis of right lower extremity 03/29/2025 Travel 03/28/2025 Refill [facility] [address] [place] [address] Sia Leon, PharmD 03/27/2025 Telephone [facility] [address] [place] [address] Amanda Watkins MD Chart Prep 03/20/2025 Orders Only [facility] [address] [place] [address] Amanda Watkins MD Type 2 diabetes mellitus with diabetic autonomic neuropathy, with long-term current use of insulin (CMS/HCC) (Primary Dx) 03/20/2025 Telephone [facility] [address] [place] [address] Lynne Lazaro, LOGGING RAFTER LABORER Follow-up 03/20/2025 Telephone [facility] [address] [place] [address] Amanda Watkins MD Referral 03/20/2025 Telephone [facility] [address] [place] [phone] Amanda Watkins MD Nurse Triage 03/16/2025 Refill [facility] [address] [place] [address] Amanda Watkins MD 03/14/[address] [address] Amanda Watkins MD FYI 03/11/2025 Orders Only GENERIC EXTERNAL DATA DEPARTMENT Provider, Generic External Data 03/09/2025 Orders Only GENERIC EXTERNAL DATA DEPARTMENT Provider, Generic External Data 03/08/2025 Patient Outreach [address] [phone] Amanda Watkins MD Transition Of Care (Tcm) (HDF scheduled) 03/08/[address] [phone] Amanda Watkins MD Atrial fibrillation, unspecified type ([facility]) 03/03/2025 Orders Only GENERIC EXTERNAL DATA DEPARTMENT Provider, Generic External Data 03/02/[address] [address] Amanda Watkins MD Chronic bilateral low back pain with bilateral sciatica 02/27/[address] [address] Amanda Watkins MD from Last 3 Months [...] Sign Reading Time Taken Comments Blood Pressure 130/86 05/08/2025 10:29 AM EDT Pulse 66 05/08/2025 10:29 AM EDT Temperature 36.1 C (96.9 F) 05/08/2025 10:29 AM EDT Respiratory Rate 17 05/08/2025 10:29 AM EDT Oxygen Saturation 95% 05/08/2025 10:29 AM EDT Inhaled Oxygen Concentration - - Weight 110 kg (243 lb) 05/08/2025 10:29 AM EDT Height 154.9 cm (5' 1 ) 05/08/2025 10:29 AM EDT Body Mass Index 45.91 05/08/2025 10:29 AM EDT Plan of Treatment Upcoming Encounters Date Type Department Care Team (Late st Contact Info) Description 07/09/2025 3:30 PM EST Office Visit [facility] [address] [place] [address] Amanda Watkins MD [address] [place] [address] Health Maintenance Due Date Last Done Comments [...] 09/30/2017, Additional history exists Diabetes: Hemoglobin A1C 08/07/2025 025, 03/29/2025, 09/01/2024, Additional history exists Lipid Panel 09/01/2025 09/01/2024, 08/04/2021 Depression Monitoring 09/14/2025 03/14/2025, 025 Alcohol/Substance Use Screening 02/15/2026 02/15/2025 SDOH Screening 02/15/2026 02/15/2025 Tobacco Screening 05/08/2026 05/08/2025 Hepatitis B Vaccines Completed 06/07/2007, 11/01/2006, 03/12/2006 [...] Diagnosis Comments POCT GLYCATED HEMOGLOBIN, TOTAL Routine 05/08/2025 10:52 AM EDT Type 2 diabetes mellitus with hyperglycemia, with long-term current use of insulin (CMS/[facility]) POCT GLUCOSE Routine 05/08/2025 10:52 AM EDT Type 2 diabetes mellitus with hyperglycemia, with long-term current use of insulin (CMS/[facility]) CT SHOULDER WO CONTRAST RIGHT Routine 04/17/2025 9:23 PM EDT LACTIC ACID Routine 04/17/2025 10:07 AM EDT POCT GLYCATED HEMOGLOBIN, TOTAL Routine 03/29/2025 2:06 PM EDT Type 2 diabetes mellitus with diabetic autonomic neuropathy, with long-term current use of insulin (CMS/[facility]) POCT GLUCOSE Routine 03/29/2025 2:04 PM EDT Type 2 diabetes mellitus with diabetic autonomic neuropathy, with long-term current use of insulin (CMS/[facility]) BASIC METABOLIC PANEL Routine 03/11/2025 8:31 AM [...] to Health Maintenance Results * (ABNORMAL) POCT Hgb A1c (05/08/2025 10:52 AM EDT) Only the most recent of2 resultswithin the time period is included. Hemoglobin A1C 9.8(A) 4.0 - 5.7 % QC Media Lot # [id number] Lot# Expiration Date [id number] Blood 05/08/2025 10:5 2 AM EDT us Amanda Myers MD POINT OF CARE TEST EN TER/EDIT ORDERABLES Final Result * (ABNORMAL) POCT Glucose (05/08/2025 10:52 AM EDT) Only the most recent of2 resultswithin the time period is included. Pathologist [facility] Glucose Blood, POC 407(A) 60 - 200 mg/dL QC Media Lot # [id number] Lot# Expiration Date ,726 Blood Capillary blood specimen / Unknown 05/08/2025 10:52 AM EDT Result Whit Myers MD POINT OF CARE TEST EN TER/EDIT ORDERABLES Final Result * CT Shoulder w/o Contrast Right (04/17/2025 9:23 PM EDT) Anatomical Region Laterality Modality Upper Extremities, Shoulder Right Comp uted Tomography 04/17/2025 9:23 PM EDT Narrative 04/17/2025 9:25 PM EDT [place] [address] [address] Scan Report Signed with Addenda Patient: Mary Lou Godwin MR#: [id number] : 1950 Acct:[id number] Age/Sex: 74 / F ADM Date: 04/17/25 Loc: HO.ED Attending Dr: Ordering Physician: Kassy Barnard DO Date of Service: 04/17/25 Procedure(s): CT shoulder RT wo IV con Accession Number(s): [id number] cc: Amanda Watkins MD; Kassy Barnard DO Report Number: [id number]: Total DLP = 476.00 mGy-cm Reason for [...] RT MIN 2V - 03/11/25 08:[address]/DE/SR - CT SHOULDER RT WO IV CON [...] in OV> 04/17/252124 DD/ 22 TD/TT: 04/17/252122 Clerical Coordinator: Procedure Note Donotuseinterpreter, Image - 04/17/[address] [address] [address] Scan Report Signed with Addenda Patient: Mary Lou Godwin ZMR#: [id number] : 9Acct:[id number] Age/Sex: 74 / FADM Date: 04/17/25 Loc: HO.ED Attending Dr: Ordering Physician: Kassy Barnard DO Date of Service: 04/17/25 Procedure(s): CT shoulder RT wo IV con Accession Number(s): [id number] cc: Amanda Watkins MD; Kassy Barnard DO Report Number: [id number]: Total DLP = 476.00 mGy-cm Reason for [...] RT MIN 2V - 03/11/25 08:[address]/DE/SR - CT SHOULDER RT WO IV CON [...] in OV> 04/17/252124 DD/ 22 TD/TT: 04/17/252122 Clerical Coordinator: [facility] External Provider IMG CT PROCEDURES Edited Result - Final * Lactic Acid (04/17/2025 10:07 AM EDT) Pathologist [facility] Lactic Acid 1.0 0.5 - 2.0 mmol/L [facility] 04/17/2025 10:0 7 AM EDT 04/17/2025 10:12 PM EDT Generic External Data Provider LAB BLOOD ORDERAB LES Final Result [facility] [address] [place] [phone] * (ABNORMAL) CBC auto differential (03/11/2025 8:31 AM EDT) Only the most recent of3 resultswithin the time period is included. White Blood Count 8.5 4.8 - 10.8 X10*3/uL [facility] Red Blood Count 3.71(L) 4.20 - 5.50 X10*6/uL [facility] Hemoglobin 8.4(L) 12.0 - 16.0 g/dl [facility] Hematocrit 28.3(L) 37.0 - 47.0 % [facility] Mean Corpuscular Volume 76.3(L) 80.0 - 98.0 fL [facility] Mean Corpuscular Hemoglobin 22.6(L) 27.0 - 33.0 pg [facility] Mean Corpuscular HGB Conc 29.7(L) 31.0 - 35.0 g/dl [facility] Red Cell Distribution Width 20.6(H) 11.0 - 16.0 % [facility] Platelet Count 348 160 - 400 X10*3/uL [facility] Mean Platelet Volume 9.2(L) 9.4 - 12.3 fL [facility] Neutrophils Percent Auto 74.2(H) 45 - 73 % [facility] Imm Gran Pct Auto 1.2(H) 0.0 - 0.4 % [facility] Lymphocytes Percent Auto 10.9(L) 20 - 40 % [facility] Monocytes Percent Auto 11.3(H) 2 - 11 % [facility] Eosinophils Percent Auto 1.8 0 - 4 % [facility] Basophils Percent Auto 0.6 0 - 2 % [facility] NRBC Pct Auto 0.0 0.0 - 0.2 /100WBC [facility] Neutrophils Absolute Auto 6.3 2.0 - 8.3 x10*3/uL [facility] Imm Gran Abs Auto 0.10(H) 0.00 - 0.03 X10*3/uL [facility] Lymphocytes Absolute Auto 0.9(L) 1.2 - 4.9 X10*3/uL [facility] Monocytes Absolute Auto 1.0 0.1 - 1.2 X10*3/uL [facility] Eosinophils Absolute Auto 0.2 0.0 - 0.4 X10*3/uL [facility] Basophils Absolute Auto 0.1 0.0 - 0.2 X10*3/uL [facility] NRBC Abs Auto 0.000 0.0 - 0.012 X10*3/uL [facility] 03/11/2025 8:31 AM EDT 03/11/2025 8:33 AM EDT us Generic External Data Provider LAB BLOOD ORDERAB LES Final Result [facility] [address] [place] [phone] * (ABNORMAL) Basic Metabolic Panel (03/11/2025 8:31 AM EDT) Only the most recent of2 resultswithin the time period is included. Sodium 136 135 - 145 mmol/L [facility] Potassium 4.4 3.3 - 5.1 mmol/L [facility] Chloride 98 96 - 108 mmol/L [facility] Carbon Dioxide 32(H) 22 - 29 mmol/L [facility] Anion Gap 10(L) 12 - 20 [facility] Urea Nitrogen (BUN) 17(H) 9 - 16 mg/dL [facility] Creatinine, Serum 1.16 0.5 - 1.4 mg/dL [facility] Creatinine Clr Calc Pharmacy 48.9 [facility] Comment:Provided height and weight: 154.94 cm,113.2 kg.eGFR (calculated from the MDRD study equation) and eCrCl(calculated from the Cockcroft-Gault equation) are based ondifferent parameters and may not yield comparable results.If eCrCl result is absurd, please check patient'sheight/weight. Estimated Glomerular Filt Rate 46 [facility] Comment:Chronic Kidney Disea se: Estimated GFR < 60 mL/min/1.75m2Vabzwf Kidney Disease: Estimated GFR < 15 mL/min/1.73m2 Glucose 332(H) 60 - 115 mg/dL [facility] Calcium 8.3(L) 8.4 - 10.2 mg/dL [facility] 03/11/2025 8:31 AM EDT 03/11/2025 8:33 AM EDT us Generic External Data Provider LAB BLOOD ORDERAB LES Final Result [facility] [address] [place] [phone] * XR Shoulder 2+ Views Right (03/11/2025 8:21 AM EDT) Only the most recent of3 resultswithin the time period is included. Anatomical Region Laterality Modality Upper Extremities, Shoulder Right Radi ographic Imaging 03/11/2025 8:21 AM EDT Narrative 03/11/2025 8:23 AM EDT [address] [address] XRay Report Signed Patient: Mary Lou Godwin MR#: M [id number] : 1950 Acct:[id number] Age/Sex: 74 / F ADM Date: 03/11/25 Loc: HO.ED Attending Dr: Ordering Physician: Yelena Alvarez MD Date of Service: 03/11/25 Procedure(s): XR shoulder RT min 2V Accession Number(s): [id number] cc: Amanda Watkins MD; Yelena Alvarez MD [...] in OV> 03/11/25821 DD/ 0 TD/TT: 03/11/25820 Clerical Coordinator: Procedure Note Donotuseinterpreter, Image - 03/11/[address] [address] XRay Report Signed Patient: Mary Lou Godwin ZMR#: M [id number] : 9Acct:[id number] Age/Sex: 74 / FADM Date: 03/11/25 Loc: HO.ED Attending Dr: Ordering Physician: Yelena Alvarez MD Date of Service: 03/11/25 Procedure(s): XR shoulder RT min 2V Accession Number(s): [id number] cc: Amanda Watkins MD; Yelena Alvarez MD [...] in OV> 03/11/25821 DD/ 0 TD/TT: 03/11/25820 Clerical Coordinator: [facility] External Provider IMG XR PROCEDURES Edited Result - Final * High Sensitivity Troponin I (03/09/2025 3:33 PM EDT) Only the most recent of3 resultswithin the time period is included. TROPONIN I HIGH SENSITIVITY 11.0 <3.5 - 17.0 ng/L [facility] Comment:The [place] high sens itivity Troponin-I results should beused in conjunction with other diagnostic information suchas ECG, clinical observations and information, and patientsymptoms to aid in the diagnosis of [place]. 03/09/2025 3:33 PM EDT 03/09/2025 3:42 PM EDT Generic External Data Provider LAB BLOOD ORDERAB LES Final Result Performing Organization Address [facility] Co de Phone Number [facility] [address] [place] [address] [phone] * SARS-CoV-2 RNA, Influenza A/B, and RSV RNA, Ql NAAT (03/09/2025 3:33 PM EDT) Influenza A PCR NEGATIVE Negative [facility] Influenza B PCR NEGATIVE Negative [facility] Resp Syncy Virus RNA Qual PCR NEGATIVE Negative [facility] SARS COV2 PCR NEGATIVE Negative [facility] Comment:All test results mus t [...] use by authorized laboratories.Testing performed on the [employer] GeneXpert utilizingreal-time RT-PCR.All SARS CoV2 and positive influenza A/B results arereported to [facility]. 03/09/2025 3:33 PM EDT 03/09/2025 3:42 PM EDT Generic External Data Provider LAB MICROBIOLOGY - GENERAL ORDERABLES Final Result Performing Organization Address [facility] Co de Phone Number [facility] [address] [place] [address] [phone] * (ABNORMAL) C-reactive Protein (03/09/2025 3:33 PM EDT) C Reactive Protein 4.69(H) < or = 0.50 mg/dL [facility] 03/09/2025 3:33 PM EDT 03/09/2025 3:42 PM EDT us Generic External Data Provider LAB BLOOD ORDERAB LES Final Result Performing Organization Address [facility] de Phone Number [facility] [address] [place] [phone] * (ABNORMAL) Uric acid (03/09/2025 3:33 PM EDT) Uric Acid 7.8(H) 2.4 - 5.7 mg/dL [facility] 03/09/2025 3:33 PM EDT 03/09/2025 3:42 PM EDT us Generic External Data Provider LAB BLOOD ORDERAB LES Final Result Performing Organization Address [facility] Phone Number [facility] [address] [place] [address] [phone] * Magnesium (03/09/2025 3:33 PM EDT) Magnesium 1.8 1.6 - 2.6 mg/dL [facility] 03/09/2025 3:33 PM EDT 03/09/2025 3:42 PM EDT Generic External Data Provider LAB BLOOD ORDERAB LES Final Result Performing Organization Address [facility] de Phone Number [facility] [address] [place] [address] [phone] * (ABNORMAL) Hepatic Function Panel (03/09/2025 3:33 PM EDT) Bilirubin, Total 0.3 0.0 - 1.0 mg/dL [facility] Bilirubin, Direct 0.1 0.0 - 0.5 mg/dL [facility] Aspartate Amino Transferase 22 5 - 31 U/L [facility] Alanine Aminotransferase <6 0 - 31 U/L [facility] Total Protein 6.7 6.5 - 8.0 g/dL [facility] Albumin Level 2.9(L) 3.5 - 5.0 g/dL [facility] Alkaline Phosphatase 74 39 - 117 U/L [facility] 03/09/2025 3:33 PM EDT 03/09/2025 3:42 PM EDT us Generic External Data Provider LAB BLOOD ORDERAB LES Final Result [facility] [address] [place] [phone] * CT Abdomen Pelvis w/ Contrast (03/03/2025 9:15 PM EDT) Anatomical Region Laterality Modality Body, Pelvis, Abdomen Computed T omography 03/03/2025 9:15 PM EDT Narrative 03/03/2025 9:17 PM EDT [address] [address] [address] Scan Report Signed Patient: Mary Lou Godwin MR#: [id number] : 1950 Acct:[id number] Age/Sex: 74 / F ADM Date: 03/03/25 Loc: .ED Attending Dr: Ordering Physician: Ingris Song PA-C Date of Service: 03/03/25 Procedure(s): CT abdomen pelvis w IV con Accession Number(s): [id number] cc: Ingris Song PA-C; Amanda Watkins MD Report Number: [id number]: Total DLP = 1159.00 mGy-cm CLINICAL HISTORY: [...] in OV> 03/03/252115 DD/ 14 TD/TT: 03/03/252114 Clerical Coordinator: Procedure Note Donotuseinterpreter, Image - 03/03/[address] [place] [address] [address] Scan Report Signed Patient: Mary Lou Godwin ZMR#: [id number] : 9Acct:[id number] Age/Sex: 74 / FADM Date: 03/03/25 Loc: HO.ED Attending Dr: Ordering Physician: Ingris Song PA-C Date of Service: 03/03/25 Procedure(s): CT abdomen pelvis w IV con Accession Number(s): [id number] cc: Ingris Song PA-C; Amanda Watkins MD Report Number: [id number]: Total DLP = 1159.00 mGy-cm CLINICAL HISTORY: [...] in OV> 03/03/252115 DD/ 14 TD/TT: 03/03/252114 Clerical Coordinator: [facility] External Provider IMG CT PROCEDURES Edited Result - Final * OBSX1 (03/03/2025 8:16 PM EDT) OBS1 NEGATIVE NEGATIVE [facility] 03/03/2025 8:16 PM EDT 03/03/2025 8:20 PM EDT us Generic External Data Provider LAB BLOOD ORDERAB LES Final Result [facility] [address] [place] [phone] * XR Chest 1 View (03/03/2025 6:57 PM EDT) Anatomical Region Laterality Modality Chest Radiographic Franca ging 03/03/2025 6:57 PM EDT Narrative 03/03/2025 6:59 PM EDT [address] [address] XRay Report Signed Patient: Mary Lou Godwin Z MR#: [id number] : 1950 Acct:[id number] Age/Sex: 74 / F ADM Date: 03/03/25 Loc: HO.ED Attending Dr: Ordering Physician: Ingris Song PA-C Date of Service: 03/03/25 Procedure(s): XR chest 1V Accession Number(s): [id number] cc: Ingris Song PA-C; Amanda Watkins MD [...] in OV> 03/03/251857 DD/ 56 TD/TT: 03/03/251856 Clerical Coordinator: Procedure Note Donotuseinterpreter, Image - 03/03/[address] [address] XRay Report Signed Patient: Mary Lou Godwin ZMR#: [id number] : 1950cct:[id number] Age/Sex: 74 / FADM Date: 03/03/25 Loc: HO.ED Attending Dr: Ordering Physician: Ingris Song PA-C Date of Service: 03/03/25 Procedure(s): XR chest 1V Accession Number(s): [id number] cc: Ingris Song PA-C; Amanda Watkins MD [...] in OV> 03/03/251857 DD/ 56 TD/TT: 03/03/251856 Clerical Coordinator: [facility] External Provider IMG XR PROCEDURES Edited Result - Final * (ABNORMAL) Iron And Total Iron Binding Capacity (03/03/2025 5:30 PM EDT) [facility] Iron 10(L) 30 - 160 mcg/dL [facility] Total Iron Binding Capacity 209(L) 228 - 428 mcg/dL [facility] Percent Iron Saturation 5(L) 15 - 50 % [facility] Unsaturated Iron Binding 199 ug/dL [facility] 03/03/2025 5:30 PM EDT 03/03/2025 5:35 PM EDT Generic External Data Provider LAB BLOOD ORDERAB LES Final Result Performing Organization Address [facility]/ZIP Co de Phone Number [facility] [address] [place] [phone] * (ABNORMAL) B Type Natriuretic Peptide (BNP) (03/03/2025 5:30 PM EDT) [facility] B Type Natriuretic Peptide 337(H) <100 pg/mL [facility] 03/03/2025 5:30 PM EDT 03/03/2025 5:35 PM EDT Generic External Data Provider LAB BLOOD ORDERAB LES Final Result Performing Organization Address [facility]/ZIP Co de Phone Number [facility] [address] [place] [address] [phone] * (ABNORMAL) Comprehensive Metabolic Panel (03/03/2025 5:30 PM EDT) Sodium 135 135 - 145 mmol/L [facility] Potassium 4.7 3.3 - 5.1 mmol/L [facility] Chloride 96 96 - 108 mmol/L [facility] Carbon Dioxide 30(H) 22 - 29 mmol/L [facility] Anion Gap 14 12 - 20 [facility] Urea Nitrogen (BUN) 26(H) 9 - 16 mg/dL [facility] Creatinine, Serum 1.44(H) 0.5 - 1.4 mg/dL [facility] Creatinine Clr Calc Pharmacy 38.6 [facility] Comment:Provided height and weight: 152.4 cm,112.9 kg.eGFR (calculated from the MDRD study equation) and eCrCl(calculated from the Cockcroft-Gault equation) are based ondifferent parameters and may not yield comparable results.If eCrCl result is absurd, please check patient'sheight/weight. Estimated Glomerular Filt Rate 35 [facility] Comment:Chronic Kidney Disea se: Estimated GFR < 60 mL/min/1.39q7Wsrrsc Kidney Disease: Estimated GFR < 15 mL/min/1.73m2 Glucose 370(HH) 60 - 115 mg/dL [facility] Comment:Critical value for t est(s): GLUR Results called to and readback by: NORMAN Person calling: ZHAO Date: 03/03/25 Time:1800 Calcium 7.9(L) 8.4 - 10.2 mg/dL [facility] Bilirubin, Total 0.3 0.0 - 1.0 mg/dL [facility] Aspartate Amino Transferase 17 5 - 31 U/L [facility] Alanine Aminotransferase <6 0 - 31 U/L [facility] Total Protein 6.7 6.5 - 8.0 g/dL [facility] Albumin Level 2.8(L) 3.5 - 5.0 g/dL [facility] Alkaline Phosphatase 73 39 - 117 U/L [facility] 03/03/2025 5:30 PM EDT 03/03/2025 5:35 PM EDT us Generic External Data Provider LAB BLOOD ORDERAB LES Final Result Performing Organization Address [facility] Co de Phone Number [facility] [address] [place] [address] [phone] * (ABNORMAL) Lipid Panel, Standard (09/01/2024 2:09 PM EST) Triglycerides 241(H) <150 mg/dL [facility] Comment:Desirable Triglyceri de: less than 150 mg/dLBorderline High Triglyceride 150-199 mg/dLHigh Triglyceride: 200-499 mg/dLVery High Triglyceride: greater than or equal to 5OO mg/dL Cholesterol 107 <200 mg/dL [facility] Comment:Desirable Cholestero l: less than 200 mg/dLBorderline High Cholesterol: 200-239 mg/dLHigh Cholesterol: greater than 239 mg/dL LDL Cholesterol Calculated 34 <100 mg/dL [facility] Comment:Desirable LDL: less than 100 mg/dLNear Optimal/Above Optimal LDL: 110- 129 mg/dLBorderline High LDL: 130-159 mg/dLHigh LDL: 160-189 mg/dLVery High LDL: greater than or equal to 190 mg/dL HDL Cholesterol 25(L) >40 mg/dL [facility] Comment:Desirable HDL: great er than 40 mg/dL Note: This HDL assay may give artificially low results in patients with liver disease. 09/01/2024 2:09 PM EST 09/01/2024 4:09 PM EST us Amanda Myers MD LAB BLOOD ORDERABLES Final Result Performing Organization Address [facility]/ZIP Co de Phone Number [facility] [address] [place] [phone] * (ABNORMAL) ALBUMIN, RANDOM URINE W/CREATININE (08/04/2021 10:15 AM EST) Pathologist [facility] Microalbumin Urine 66.2 See Note: mg/dL [facility] [...] DO LAB URINE ORDERABLES Final R esult [facility] [address] from Last 3 Months or Most Recently Relevant to Health Maintenance Insurance [facility] USP OPTIONS (HMO D-SNP) [facility] STANDARD Care Teams Nitro Worker Relationship Specialty Start Date End Date Amanda Watkins MD [address] [place] [phone] PCP - General Family Medicine 04/07/19 Hiro Ram FNP [address] [place] [address] 11225 Nurse Practitioner Family Medicine 07/06/23 Raad Arias, TheaD [address] [place] [address] [phone] Pharmacist Internal Medicine 10/19/24 [facility] 03/08/25
--- OUTSIDE RECORDS SUMMARY | 2025-05-29 22:03 | XMS_ITS | Encounter Summary ---
Author Organization [employer] Address [address] [facility] 7t [place] [address] Care Team Providers Care Roof Foreman Name Role Phone Amanda Watkins MD Primary Care Provide r Hiro Ram SQL SERVER DBA DEVELOPER Unavailable Unavailable Raad Arias PharmD Unavailable [phone] Reason for Visit * Reason Comments Med Refill Encounter Details Date Type Department Care Team (Late st Contact Info) Description 05/28/2025 Refill [facility] [address] [place] [address] Amanda Watkins MD [address] [place], [place] [phone] Chronic bilateral low back pain with bilateral [...] Description 07/09/2025 3:30 PM EST Office Visit [facility] [address] [place] [phone] Amanda Watkins MD [address] [place] [address] documented as of this encounter Visit Diagnoses Diagnosis Chronic bilateral low back pain with bilateral sciatica documented in this encounter Additional Health Concerns Assessment Noted Time PHQ-9 Depression Total Score: 14 025 2:41 PM EDT documented as of this encounter Care Teams Roof Foreman Relationship Specialty Start Date End Date Amanda Watkins MD [address] [place] [phone] PCP - General Family Medicine 04/07/19 Hiro Ram FNP [address] [place] [address] Nurse Practitioner Family Medicine 07/06/23 Raad Arias, TheaD [address] [place] [address] 28639 Pharmacist Internal Medicine 10/19/24 [facility] 03/08/25 documented as of this encounter
--- OUTSIDE RECORDS SUMMARY | 2025-05-29 22:03 | XMS_ITS | Encounter Summary ---
Author Organization [employer] Address [address] [facility] 7t [place] [address] Care Team Providers Care Facilities Specialist Name Role Phone Amanda Watknis MD Primary Care Provide r Hiro Ram GOLF CART REPAIRER Unavailable Unavailable Raad Arias PharmD Unavailable [phone] Reason for Visit * Reason Onset Date Comments Pt cancelled Tele HOMEBIRTH MIDWIFE RV at check in 04/13/2025 Review message from PCP 04/16/25 re missed HOMEBIRTH MIDWIFE lidya t 04/13/2025 Med Refill 04/13/2025 Encounter Details Date Type Department Care Team (Late st Contact Info) Description 04/13/2025 Refill [facility] [address] [place] [address] Fab Alanis RN Chronic bilateral low back pain with bilateral sciatica (Primary Dx) Social History Tobacco Use Types [...] encounter Miscellaneous Notes * Addendum Note - Fab Alanis RN - 05/29/2025 3:01 PM EDTAddended by: FAB ALANIS on: 05/29/2025 03:01 PM Modules accepted: Orders * Telephone Encounter - Fab Alanis RN - 04/16/2025 9:35 AM EDT Received the following message from PCP this morning: Please let patient know I am going to give her a last opportunity, if she misses another appointment or breaks contract I will have to taper and discontinue her oxycodone thank you. TC via P/I#[id number], no answer. L/M asking her to call back to review message from PCP regarding missed appt Wednesday. * Telephone Encounter - Fab Alanis RN - 04/13/2025 11:54 AM EDT Pt cancelled [employer]BIR[employer] MIDWIFE RV Tele appt today at check in. TC via P/I#[id number], no answer. Left message asking patient to call back to reschedule. Will update PCP. * Telephone Encounter - Fab Alanis RN - 04/13/2025 10:49 AM EDT Pt cancelled Tele HOMEBIRTH MIDWIFE RV appt at check in. helpdesk analyst called patient for checkin for Tele HOMEBIRTH MIDWIFE appt. Pt stated she had an emergency and couldn't speak on the phone. documented in this encounter Plan of Treatment Upcoming Encounters Date Type Department Care Team (Late st Contact Info) Description 07/09/2025 3:30 PM EST Office Visit [facility] [address] [place] [phone] Amanda Watkins MD [address] [place] [phone] documented as of this encounter Visit Diagnoses Diagnosis Chronic bilateral low back pain with bilateral sciatica- Primary documented in this encounter Additional Health Concerns Assessment Noted Time PHQ-9 Depression Total Score: 14 025 2:41 PM EDT documented as of this encounter Care Teams Facilities Specialist Relationship Specialty Start Date End Date Amanda Watkins MD [address] [place] [phone] PCP - General Family Medicine 04/07/19 Hiro Ram FNP [address] [place] [address] Nurse Practitioner Family Medicine 07/06/23 Raad Arias, Carlos [address] [place] [phone] Pharmacist Internal Medicine 10/19/24 [facility] 03/08/25 documented as of this encounter
--- OUTSIDE RECORDS SUMMARY | 2025-05-29 22:03 | XMS_ITS | Encounter Summary ---
Author Organization [employer] Address [address] [facility] 7t [place] [address] Care Team Providers Care Sap Bobj Developer Name Role Phone Amanda Watkins MD Primary Care Provide r Hiro Ram AUTOMOTIVE QUALITY MANAGER Unavailable Unavailable Raad Arias PharmD Unavailable [phone] Reason for Visit * Reason Onset Date Comments Med Refill 01/03/2025 Encounter Details Date Type Department Care Team (Late st Contact Info) Description 01/03/2025 Refill [facility] [address] [place] [address] Amanda Watkins MD [address] [place], [place] [phone] Chronic bilateral low back pain with bilateral [...] not with her 12/10/23 - [facility] Tele PAINTER SPRAY RV * Telephone Encounter - Sky Sánchez - 01/03/2025 1:12 PM EDT TC from pt requesting medication refill. Medications needing refill: oxyCODONE-acetaminophen (Percocet) 5-325 MG tablet To be sent to: [facility] - [place], [place] - [address] documented in this encounter Plan of Treatment Upcoming Encounters Date Type Department Care Team (Late st Contact Info) Description 07/09/2025 3:30 PM EST Office Visit [facility] [address] [place] [address] Amanda Watkins MD [address] [place] [address] documented as of this encounter Visit Diagnoses Diagnosis Chronic bilateral low back pain with bilateral sciatica documented in this encounter Additional Health Concerns Assessment Noted Time PHQ-9 Depression Total Score: 0 09/01/19 1:18 PM EST documented as of this encounter Care Teams Sap Bobj Developer Relationship Specialty Start Date End Date Amanda Watkins MD [address] [place] [phone] PCP - General Family Medicine 04/07/19 Hiro Ram FNP [address] [place] [address] Nurse Practitioner Family Medicine 07/06/23 Raad Arias, TheaD [address] [place] [address] [phone] Pharmacist Internal Medicine 10/19/24 Ja Tyra 08/10/24 03/12/25 [facility] 03/08/25 documented as of this encounter
--- OUTSIDE RECORDS SUMMARY | 2025-05-29 22:03 | XMS_ITS | Encounter Summary ---
Author Organization [employer] Address [address] [facility] [address] [place] [address] Care Team Providers Care Gaming Dealer Name Role Phone Amanda Watkins MD Primary Care Provide r Hiro Ram SECURITIES BROKER Unavailable Unavailable Raad Arias PharmD Unavailable [phone] Reason for Visit * Reason Onset Date Comments Appointment Request 04/30/2025 Encounter Details Date Type Department Care Team ([facility] st Contact Info) Description 04/30/2025 Telephone [facility] [address] [place] [address] Amanda Watkins MD [address] [place] [address] Appointment Request Social History Tobacco Use Types [...] encounter Miscellaneous Notes * Telephone Encounter - Hugh Pablo - 04/30/2025 2:19 PM EDT Tc from pt requesting to reschedule CDTM apt Contact at [phone] (macedonian) documented in this encounter Plan of Treatment Upcoming Encounters Date Type Department Care Team (Late st Contact Info) Description 07/09/2025 3:30 PM EST Office Visit [facility] [address] [place] [address] Amanda Watkins MD [address] [place] [address] documented as of this encounter Visit Diagnoses Not on filedocumented in this encounter Additional Health Concerns Assessment Noted Time PHQ-9 Depression Total Score: 14 025 2:41 PM EDT documented as of this encounter Care Teams Gaming Dealer Relationship Specialty Start Date End Date Amanda Watkins MD [address] [place] [address] PCP - General Family Medicine 04/07/19 Hiro Ram FNP [address] [place] [address] Nurse Practitioner Family Medicine 07/06/23 Raad Arias, TheaD [address] [place] [address] Pharmacist Internal Medicine 10/19/24 [facility] 03/08/25 documented as of this encounter
--- OUTSIDE RECORDS SUMMARY | 2025-05-29 22:03 | XMS_ITS | Data Portability ---
Author Organization [facility], Main Office Address [address] [facility] [address] [place] [address] Care Team Providers Care Hammerer Tab Name Role Phone EUGENIA FLOWER - 2ND FLOOR OTHER Assessment Encounter Date Assessment Date Assessment LastModified by Organization Details LastModified Time 04/08/2024 04/08/202404/05 na 139 k 5 cre 1.27 wbc 6.8 hgn 9.7 hct 31.1 [email or web address] Not available 04/08/2024 12:35:37 04/11/2024 04/11/202404/05 na 139 k 5 cre 1.27 wbc 6.8 hgn 9.7 hct 31.1 [email or web address] Not available 04/11/2024 21:51:17 04/18/2024 04/18/202404/05 na 139 k 5 cre 1.27 wbc 6.8 hgn 9.7 hct 31.1 [email or web address] Not available 04/18/2024 13:49:59 04/19/2024 04/19/202404/05 na 139 k 5 cre 1.27 wbc 6.8 hgn 9.7 hct 31.1 this [employer] SANDER spent >30 minutes with assessment, dx, referral, [...] Address Organization Details Recorded Time Depressive disorder 99519973 Active 2023 HOLDEN LAURENT [address], [address], [place], [address], [facility] 4 12:24:02 Atrial fibrillation 90589142 Active 2023 HOLDEN LAURENT [address], [address], [place], [address], [facility] 4 12:24:20 Obstructive sleep apnea syndrome 70439023 Active 2023 HOLDEN LAURENT [address], [address], [place], [address], [facility] 4 12:24:31 Asthma 274445714 Active 2023 HOLDEN LAURENT [address], [address], [place], [address], [facility] 4 12:24:36 Hypertensive disorder 03950385 Active 2023 HOLDEN LAURENT [address], [address], [place], [address], [facility] 4 12:24:41 Hyperlipidemia 45545461 Active 2023 HOLDEN LAURENT [address], [address], [place], [address], [facility] 4 12:24:47 Retention of urine 430339300 Active 2023 HOLDEN LAURENT [address], [address], [place], [address], [facility] 4 12:24:53 Opioid dependence 06097638 Active 2023 HOLDEN LAURENT [address], [address], [place], [address], [facility] 4 12:25:08 Diabetes mellitus 29329422 Active 2023 HOLDEN LAURENT [address], [address], [place], [address], [facility] 4 12:25:14 Congestive heart failure 83526547 Active 2023 HOLDEN LAURENT [address], [address], [place], [address], [facility] 4 12:25:21 Gastroesophage al reflux disease 031067217 Active 2023 HOLDEN LAURENT [address], [address], [place], [address], [facility] 4 12:25:30 Hypothyroidism 44049479 Active 2023 HOLDEN LAURENT [address], [address], [place], [address], [facility] 4 12:25:37 Cellulitis 548671636 Active 2023 HOLDEN LAURENT [address], [address], [place], [address], [facility] 4 12:26:22 Arterial insufficiency 087297885 Active 2023 HOLDEN LAURENT [address], [address], [place], [address], [facility] [employer] 4 12:26:37 Problem Notes None recorded. Medical Equipment None Reported. Allergies Allergen ID Allergen Name Allergen Category Reaction Reaction Severity Criticality Documentation Date Start Date Code Code System Note Provider Name and Address Organization Details Recorded Time 56740 codeine medicatio n Not available Not available Not available 04/08/2024 2670 RxNorm HOLDEN LAURENT [address], [place], [address], [facility] 4 12:38:31 Medications Name Sig Start Date [...] Updated DateTime 4 152.4 cm 48.5 kg/m2 924158. 27 g 53 /min 18 /min 98.6 [degF] 98 % 98 % 149/77 mm[Hg] Genny Aguilar MD [address] [facility], [facility] [address], [place], [address], [facility] 4 21:34:16 Date Recorded Body height Heart rate Respiratory rate Body temperature Oxygen saturation Oxygen saturation in Arterial blood by Pulse oximetry Systolic And Diastolic Provider Name and Address Organization Details Last Updated DateTime 4 152.4 cm 54 /min 18 /min 98.1 [degF] 96 % 96 % 175/90 mm[Hg] IBETH PRICE NP [address] [facility], [address], [place], [address], [facility] 4 13:49:23 Date Recorded Body height Body mass index (BMI) Body weight Heart rate Respiratory rate Body temperature Oxygen saturation Oxygen saturation in Arterial blood by Pulse oximetry Systolic And Diastolic Provider Name and Address Organization Details Last Updated DateTime 4 152.4 cm 48.4 kg/m2 556787. 91 g 68 /min 18 /min 98.1 [degF] 96 % 96 % 132/72 mm[Hg] Raiza Madsen NP [address] [facility], [facility] [address], [place], [address], [facility] 4 08:19:33 Social History Question Answer Notes LastModified by Organizat ion Details LastModified Time Tobacco Smoking Status Never Smoker Genny Aguilar MD [address] [facility], [facility] [address], [place], [address], [facility] 04/11/2024 21:50:08 Do You Have An Advance Directive? Yes Information not available 04/11/2024 What Is Your Code Status? Full Code Information not available 04/11/2024 Where Do You Live? Apartment With Sister, Elevator Access. Information not available 04/11/2024 Legal Guardian? No Information not available 04/11/2024 Do You Have A Medical Power Of Bread Molder? Yes Information not available 04/11/2024 What Was [...] ICD10 Code Diagnosis IMO Codes Diagnosis Note [id number] HOLDEN LAURENT [address] [address] 04/08/2024 12:12:39 04/13/2024 15:07:34 Cellulitis 753884436 L03.90 completed antbx for LE cellulitis in ED = did not feel it was recurrence of an acute infectionh /o chronic lymphedema -monitor ss of infection- bacitracin topical to BL legs daily-oxyc odone 5 mg q6h prn for pain Arterial insufficiency 324779444 I77.1 -f/up with vascular per recs needs to be arranged-s ee above Retention of urine 81451 4002 R33.9 unable to urinate since coming from [facility] to facility-w ill order PVR, SC for PVR >400 cc Atrial fibrillation 4943 6004 I48.91 carrying dx-amiodar one 200 mg daily-eliq uis 5 mg bid-monito r HR and bleeding Hypertensive disorder 38 428380 I10 carrying dx-amlodip ine 10 mg daily-leonardo tor BP Depressive disorder 3548 9007 F32.A carrying dx-duloxet ine 20 mg daily-paxi l 40 mg daily-leonardo tor mood and affect-psy ch eval prn Congestive heart failure 71460099 I50.9 carrying dxnot on diuretics- metoprolol 50 mg daily-farx iga 10 mg daily-leonardo tor fluid status closely-da sacha weights Diabetes mellitus 991785 09 E11.9 carrying dxjardianc e was given once in hospital, dont see it on her home med list or dc med list = asked nursing to ask dtr-lantus 65 units HS-monitor accuchecks TID Hypothyroidism 17584645 E03.9 carrying dx-synthro id 50 mcg po in am-TSH/T4 prn Hyperlipidemia 91670813 E78.5 carrying dx-lipitor 80 mg daily Gastroesop hageal reflux disease 252151749 K21.9 carrying dx-omepraz ole 40 mg po daily Obstructiv e sleep apnea syndrome 18021410 G47.33 intermitte nt CPAP use at home Opioid dependence 494453 00 F11.20 -monitor needed support in community- on oxycodone for leg pain = monitor usage and wean as tolerated Dermal mycosis 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 Arterial insufficiency 347295099 I77.1 F/U with vascular as planned.Mo rubén ramos n. Retention of urine 18642 4002 R33.8 Improved, continue to monitor. Atrial fibrillation 4943 6004 I48.0 Rate in good control on amiodarone 200 mg daily and metoprolol 50 mg daily.Cont inue eliquis 5 mg BID for AC.Monitor HR and bleeding risk. Hypertensive disorder 38 522956 I10 Fair control on amlodipine 10 mg daily and metoprolol 50 mg daily.Leonardo tor BP and labs. Depressive disorder 3548 9007 F33.8 Mood good tonight, aside form wanting to go home.Nicanor nue duloxetine 20 mg daily, paroxetine 40 mg daily, trazadone 50 mg at bedtime, and melatonin 5 mg at bedtime.Mo nitor moodPsych consult prn Congestive heart failure 69517660 I50.32 Appears euvolemic. Continue meds as above and Farxiga 10 mg daily.Leonardo tor resp. status, fluid status, wts and labs. Diabetes mellitus 946234 09 E11.9 In good control since here.Nicanor nue lantus 65 units daily and Farxiga 10 mg daily.Leonardo tor accuchecks TID Hypothyroidism 48095242 E03.8 Continue levothyrox ine 50 mcg dailyMonit or TSH prn. Hyperlipidemia 02429158 E78.49 Continue atorvastat in 80 mg dailyMonit or labs as outpt. Gastroesop hageal reflux disease 811428780 K21.9 No current sxs.Contin ue omeprazole 40 mg dailyMonit or GI sxs. Obstructiv e sleep apnea syndrome 16212003 G47.33 Continue CPAP with sleep.F/U prn. Opioid dependence 602704 00 F11.20 On oxycodone chronicall y.Monitor use and f/u with pcp as planned. Candidiasis of vagina 72 925484 B37.31 Not improving with nystatin.W ill start diflucan 150 mg x 1 and repeat in 1 wk. [id number] IBETH PRICE NP [address] [address] 04/18/2024 08:27:20 04/19/2024 14:02:05 Cellulitis 096678820 L03.116 Improved. now with healing woundsdiph enhydramin [...] BMP x 1 in am Arterial insufficiency 238094031 I77.1 F/U with vascular as planned.Anthony sotelo.Refer to [facility] Wound clinic for outpt. mgmt. upon d/c. Retention of urine 61777 4002 R33.8 Improved, continue to monitor. Atrial fibrillation 4943 6004 I48.0 Rate in good control on amiodarone 200 mg daily and metoprolol 50 mg daily.Cont inue eliquis 5 mg BID for AC.Monitor HR and bleeding risk. Hypertensive disorder 38 404568 I10 Fair control on amlodipine 10 mg [...] [place] moodPsych consult prn Congestive heart failure 43103233 I50.32 Appears euvolemic. Continue meds as above and Farxiga 10 mg daily.Leonardo tor resp. status, fluid status, wts and labs. Diabetes mellitus 529542 09 E11.9 In fair control since here.Nicanor nue lantus 65 units daily and Farxiga 10 mg daily.Leonardo tor accuchecks TID Hypothyroidism 67900005 E03.8 Continue levothyrox ine 50 mcg dailyMonit or TSH prn. Hyperlipidemia 49088972 E78.49 Continue atorvastat in 80 mg dailyMonit or labs as outpt. Gastroesop hageal reflux disease 912886158 K21.9 No current sxs.Contin ue omeprazole 40 mg dailyMonit or GI sxs. Obstructiv e sleep apnea syndrome 53855976 G47.33 Continue CPAP with sleep.F/U prn. Opioid dependence 624940 00 F11.20 On oxycodone chronicall y.Monitor use and f/u with pcp as planned. Candidiasis of vagina 72 536134 B37.31 Not improving with nystatin.D iflucan 150 mg x 1 given, to repeat in 1 wk. [id number] [facility] [place] [address] 04/19/2024 08:18:47 04/20/2024 13:31:13 Cellulitis 699436790 L03.116 resolved with abx in hospitalno w [...] pcp, and wound clinica oupt Arterial insufficiency 518938661 I77.1 F/U with vascular as planned.Re marichuy to [facility] Wound clinic for outpt. mgmt. upon d/c. (referral given)vna services outpt with pcp to follow outpt with wound clinic Retention of urine 82959 4002 R33.8 Improved, continue to monitor. Atrial fibrillation 4943 6004 I48.0 Rate in good control on amiodarone 200 mg daily and metoprolol 50 mg daily.Cont inue eliquis 5 mg BID for AC.Monitor outpt with pcp and cardiology outpt Hypertensive disorder 38 801977 I10 hospital dc'd losartan 50 mg po [...] outptPsych consult prn outpt Congestive heart failure 83694124 I50.32 Appears euvolemic. Continue meds as above and Farxiga 10 mg daily.Leonardo tor outpt with pcp Diabetes mellitus 941140 09 E11.9 In fair control since here. 100-200s? if higher 200s related to infectiona lso glipizide and metformin was dc in hosp for ckd, monitor for need to add with pcp outptConti nuelantus 65 units dailyFarxi ga 10 mg daily.Leonardo tor accuchecks TID at home and bring log to pcp on 04/26/24. Hypothyroidism 19355689 E03.8 Continuele vothyroxin e 50 mcg dailyMonit or TSH prn outpt withpcp Hyperlipidemia 65293359 E78.49 Continue atorvastat in 80 mg dailyMonit or labs as outpt. Gastroesop hageal reflux disease 754996776 K21.9 No current sxs.Contin ueomeprazo le 40 mg dailyMonit or GI sxs. outpt with pcp Obstructiv e sleep apnea syndrome 31881030 G47.33 Continue CPAP with sleep.F/U prn outpt prn Opioid dependence 345031 00 F11.20 On oxycodone chronicall y.will cont on home dose and since on chronicall y will not send with any additional oxycodoneM onitor use and f/u with pcp as planned outpt Candidiasis of vagina 72 582667 B37.31 Not improving with nystatin.D iflucan 150 mg x 1 given at rehabmonit or with pcp outpt Chronic ki dney disease 409306492 N18.9 ckd per hosp paperwork with meds adjusted:g lipizide, losartan, furosemide , and metformin were dc'dlabs as [facility] and need to adjust outpt with pcp Pain in le ft lower limb 337705612 M79.605 addendumpt was ready for discharge and now reporting left lower leg pain and states she can't put weight on itwhen attempting to get dressed for homefamily refuses therapy eval and xray here,famil y requests 911 call, and emergent evaluation at [facility] Concerns Section Related Observation LastModified by Organization Detai ls LastModified Time None Recorded Concern Status LastModified by Organization Details LastModified Time None Recorded Advance Directives Directive Y: Payers Insurance Date Sequence Insurance Name Policy Number Policy Meza Covered Member ID Emza Member ID Guarantor Name 04/19/2024 1 [facility] - DOS ON OR AFTER 2022 - MEDICARE ADVANTAGE [place] (MEDICARE REPLACEMENT/ADV ANTAGE - PPO) Mary Lou Cisneros [id number] Mary Lou Cisneros Notes Date Note Type Note Provider Name and Address Organization Details Recorded Time 04/08/2024 text/html Patient is a 73 yo female being seen for initial intake visit. She presented to [facility] for eval of left leg pain. [...] PT and was recommended for transfer to [facility] for continued care and rehab. On arrival from hospital patient reporting to nursing that she hasnt urinated. No report of this occurring while she was at [facility] and she did not have [...] opiate dependence, hld, htn, DM REBECA SOTOMAYOR, [employer]C [address] [place] [address], [address], [place], [address], [facility] 04/08/2024 13:05:26 04/11/2024 text/html This is a 73 yo woman who is here for rehab after an ED visit for left leg pain after recovery from recent cellulitis.[facility] [place] [facility], txed with ceftriaxone [...] for most activities.I see her with a greenlandic speaking staff member.She is in bed, wakes [...] OP, and fibromyalgia. Genny Aguilar MD [address] [place] [address], [address], [place], [address], [facility] [employer] 04/14/2024 20:04:50 04/18/2024 text/html This is a 73 yo woman who is here for rehab after an ED visit for left leg pain after recovery from recent cellulitis.She [facility] [place] [place], txed with ceftriaxone [...] OP, and fibromyalgia. IBETH PRICE NP [address] [facility], [address], [place], [address], [facility] [employer] 04/18/2024 14:21:33 04/19/2024 text/html This is a [...] note per records:She was [facility] [place] [facility], txed with ceftriaxone [...] outpt with pcp She was transferred to [place] for rehab on 04/08 and working with rehab showing improvement and felt she is stable to discharge home. Vitals stable here and BP labile, last at 132/72 this am. While at [facility] she was seen by the wound [...] 2024. She will be picked up by [facility] @ 1:00 PM. A referral has been made to [facility] for ongoing skilled services. She will be [...] 2024. She will be picked up by [facility] @ 1:00 PM. A referral has been made to [facility] for ongoing skilled services. She will be [...] she goes home from ER. discussed with staffing administrator at facility Raiza Madsen NP [address] [facility], [address], [place], [address], [facility] 04/19/2024 13:13:44 OBGyn Episode No OBEpisode recorded.
--- OUTSIDE RECORDS SUMMARY | 2025-05-29 22:03 | XMS_ITS | Data Portability ---
Author Organization [place] [facility], [facility] Address [address] [place] [address] Care Team Providers Care Career Development Coordinator/Teacher Name Role Phone HIM CCA OTHER CRUZ MAURICE Primary Care Provider Assessment Encounter Date Assessment Date Assessment LastModified by Organization Details LastModified Time 03/27/2024 03/27/2024 I provided real -time medical direction via phone for this encounter, and was available for additional phone based assistance as needed. I have reviewed and agree with the Assessment and Plan as documented by the Quarter Lining Smoother. We discussed the diagnostic uncertainty of home [...] to call 911- verbalized understanding of instruction [email or web address] Not available 03/27/2024 16:48:02 05/29/2024 05/29/2024 service [...] in the field was performed by my mcat tutor colleague, as noted above, I provided real-time [...] Assessment and Plan as documented by the Quarter Lining Smoother. We discussed the diagnostic uncertainty of home [...] to call 911- verbalized understanding of instruction [email or web address] Not available 02/26/2025 13:27:16 03/23/2025 03/23/2025 service called for left shoulder pain found 74 lori with hx HTN chronic back pain fibromyalgic OA osteoporisis kidney injury (Cr 2.8), recently improved (Cr 1.2) c/o continued left shoulder pain refractory to prescribed PO oxycodone denies new trauma or injury of note records 2025-03-11 and 2025-03-09 from [facility] show R shoulder XR with chronic [...] Lab BMP, serum or plasma 2024 025 [facility], [address] [place] [address], [id number] 5 18:49:55 culture, urine 2023 024 [place] [facility] (Centralized Electronic Ordering - All Locations), Patient Can Go To The Location Of Their Choice, [id number] 4 08:09:10 urinalysis, dipstick 2023 024 Replaced by [facility], [address] [place] [address], [id number] 20:30:58 Referral None recorded. Procedures None recorded. Surgeries None recorded. Imaging None recorded. Medication Orders amoxicillin 875 mg-potassiu m clavulanate 125 mg tablet 2024 025 [facility], [address] [place] [address], [id number], 5 12:52:33 amoxicillin 500 mg-potassiu m clavulanate 125 mg tablet 2024 025 [email or web address] 0 [facility], [address] [place] [address], [id number], 5 12:44:30 bacitracin 500 unit/gram topical ointment 2024 025 [facility], [address] [place] [address], [id number], 5 12:52:29 furosemide 10 mg/mL injection solution 2024 025 [email or web address] 0 [facility], [address] [place] [address], [id number], 5 13:25:40 albuterol sulfate 2.5 mg/3 mL (0.083 %) solution for nebulizatio n 2024 025 [email or web address], [address] [place] [address], [id number], 5 12:44:30 albuterol sulfate 2.5 mg/3 mL (0.083 %) solution for nebulizatio n 2024 025 [facility], [address] [place] [address], [id number], 5 12:52:33 albuterol sulfate HFA 90 mcg/actuati on aerosol inhaler 2024 025 [facility], [address] [place] [address], [id number], 5 12:52:28 Ciprodex 0.3 %-0.1 % ear drops,suspe nsion 2024 025 [facility], [address] [place] [address], [id number], 5 12:33:11 clotrimazol e 1 % topical cream 2023 024 [facility], [address] [place] [address], [id number], 4 10:37:01 bacitracin 500 unit/gram topical ointment 2023 024 [email or web address] 0 [facility], [address] [place] [address], [id number], 4 11:28:20 bacitracin 500 unit/gram topical ointment 2023 024 [facility], [address] [place] [address], [id number], 14:30:32 Patient TargetsNo targets recorded. Patient Instructions Encounter Date Encounter Id Patient Instructions Last Modified By Organization Details Last Modified Time 03/27/2024 [id number] wound care* Not available 11:28:21 Reason for Referral None Reported. Results Created Date Observation Date Name Description Value Unit Range Abnormal Flag Note LastModifiedBy Organization Detail LastModifiedTime 05/29/2005/31/2024 URINE CULTU RE,CO MPREH ENSIV E urine culture,comp rehensive Final report Not Available [facility] ([facility]) [address] [place], [address], 05/31/2024 08:09:10 05/29/2005/31/2024 URINE CULTU RE,CO MPREH ENSIV E result 1 COMMEN T Mixed uroge nital mary Great er than 100,0 00 colon y formi ng units per mL Not Available [facility] ([facility]) [address] [facility], [place], [address], 05/31/2024 08:09:10 Result Notes None recorded. Problems Name Problem SNOMED Code Status Onset Date Resolution Date Notes Provider Name and Address Organization Details Recorded Time Essential hypertensio n 04078217 Active 2022 Len Nguyen MD [address] [place] [address],[address], [place], [address], [facility], [employer] 18:59:08 Arterial insufficien cy 441009496 Active 2023 Len Nguyen MD [address] [facility],[address], [place], [address], [facility], [employer] 18:58:53 Asthma 851499305 Active 2023 Len Nguyen MD [address] [facility],[address], [place], [address], [facility], [employer] 18:59:00 Atrial fibrillatio n 33704521 Active 2023 Len Nguyen MD [address] [place] [address],[address], [place], [address], [place] [facility] 18:59:03 Arthritis 7278074 Active 2023 Len Nguyen MD [address] [place] [address],[address], [place], [address], [place] [facility] 18:58:58 Chronic kidney disease stage 3B 166715594 Active 2023 Len Nguyen MD [address] [place] [address],[address], [place], [address], [place] [facility] 18:58:51 Chronic diastolic heart failure 330564249 Active 2024 Len Nguyen MD [address] [place] [address],[address], [place], [address], [place] [facility] 18:58:42 Hyperglycem ia due to type 2 diabetes mellitus 2707857462406 09 Active 2024 Len Nguyen MD [address] [place] [address],[address], [place], [address], [place] [facility] 18:58:45 Moderate recurrent major depression 14437133 Active 2024 Len Nguyen MD [address] [place] [address],[address], [place], [address], [place] [facility] 18:58:37 Morbid obesity 142898818 Active 2024 Len Nguyen MD [address] [place] [address],[address], [place], [address], [place] [facility] 18:58:39 Problem Notes None recorded. Medical Equipment None Reported. Allergies Allergen ID Allergen Name Allergen Category Reaction Reaction Severity Criticality Documentation Date Start Date Code Code System Note Provider Name and Address Organization Details Recorded Time 96193 hydrocodo ne Not available Not available Not available Not available 03/23/2025 5489 RxNorm Len Nguyen MD [address] [place] [address],[address], [place], [address], [place] [facility] 18:59:23 5119 codeine medicatio n Not available Not available Not available 12/30/2023 2670 RxNorm Not Available [employer] - production 5 10:35:11 Medications Name Sig [...] Not Available Not Available Not Available [employer] Charlotte Lite kit USE DIRECTED TO TEST BLOOD [...] Available No t Available [employer] [place] [address] [place] USE DIRECTED EVERY 8 HOURS active Not [...] % 60 /min 108/57 mm[Hg] Not Available [employer] 5 17:25:24 Date Recorded Body height Body mass index (BMI) Body weight Provider Name and Address Organization Details Last Updated DateTime 02/26/2025 134.62 cm 61.5 kg/m2 498832 g Radha Foster MD [address] [facility],[address] [facility], [place], [address], [place] [facility] 02/26/2025 17:57:17 Date Recorded Oxygen saturation Oxygen saturation in Arterial blood by Pulse oximetry Respiratory rate Heart rate Body temperature Systolic And Diastolic Provider Name and Address Organization Details Last Updated DateTime 5 92 % 92 % 18 /min 68 /min 98.8 [degF] 152/84 mm[Hg] Not Available [employer] - production 5 12:10:50 Date Recorded Oxygen saturation Oxygen saturation in Arterial blood by Pulse oximetry Body weight Body temperature Respiratory rate Heart rate Body height Systolic And Diastolic Provider Name and Address Organization Details Last Updated DateTime 5 98 % 98 % 528648. 08 g 99 [degF] 16 /min 72 /min 154.94 cm 141/71 mm[Hg] Not Available [employer] - production 5 18:57:20 Date Recorded Respiratory rate Oxygen saturation Oxygen saturation in Arterial blood by Pulse oximetry Body height Heart rate Body temperature Body weight Systolic And Diastolic Provider Name and Address Organization Details Last Updated DateTime 4 16 /min 94 % 94 % 157.48 cm 60 /min 98.7 [degF] 561816. 448 g 129/77 mm[Hg] Not Available [employer] - sfilatino 4 11:19:40 Date Recorded Heart rate Body height Body temperature Respiratory rate Oxygen saturation Oxygen saturation in Arterial blood by Pulse oximetry Body weight Systolic And Diastolic Provider Name and Address Organization Details Last Updated DateTime 4 58 /min 134.62 cm 99.3 [degF] 16 /min 95 % 95 % 841544. 632 g 150/73 mm[Hg] Not Available [employer] 4 17:02:13 Social History None recorded. Functional Status None recorded. Mental Status None recorded. Family History Nothing Reported. Medical History No medical history recorded. Gynecological HistoryNo gynecological history recorded. Obstetrics History GPAL:G 0 P 0 0 0 0 Past Encounters Encounter ID Performer Location Encounter Start Date Encounter Closed Date Diagnosis/Indication Diagnosis SNOMED-CT Code Diagnosis ICD10 Code Diagnosis IMO Codes Diagnosis Note [id number] Radha Foster MD [facility] - [facility] [address] [place] [address] 12/30/2023 14:10:14 12/31/2023 21:23:21 Cellulitis of lower limb 131446104 L03.119 left lower leg primarily ? starting [...] better staph coverage-a dvised to apply sparingly. [id number] Radha Foster MD Main - [facility] [address] [place] [address] 02/09/2024 16:16:11 02/10/2024 13:33:55 Cellulitis of lower limb 758548707 L03.119 left lower leg primarily, less on [...] better staph coverage-a dvised to apply sparingly. [id number] Angely Lake MD Main - [facility] [address] [place] [address] 02/23/2024 15:31:54 02/23/2024 22:21:20 Peripheral vascular disease 943735909 I73.9 73 year old female being evaluated [...] assessment and plan as documented by the mcat tutor. I provided real-time medical direction for this encounter and was immediatel y available to provide additional phone-base d assistance as needed. We discussed the diagnostic uncertaint y of home visits and associated risks. We discussed the need to seek care urgently/e mergently in the setting of any new or worsening symptoms. [id number] Radha Foster MD Main - [address] [address] 03/27/2024 11:19:23 03/27/2024 22:47:07 Wound of skin 001846547 T14.8XXA Advised to elevate the leg/not use [...] reviewed she is only allergic to codeine. [id number] Len Nguyen MD Main - [facility] [address] [place] [phone] 05/29/2024 17:02:10 05/30/2024 10:24:58 Tinea cruris 621813571 B35.6 Urinary symptoms 4031432 08 R39.9 [id number] Michelle Rg MD Main - [email or web address]ED [address] [place] [phone] 09/25/2024 17:25:19 09/26/2024 08:34:36 Otitis externa of right ear 1552736418 330691 H60.91 [id number] Radha Foster MD Main-[email or web address] ED Medical [address] [address] 02/26/2025 12:10:42 02/26/2025 19:21:42 Peripheral edema 639808791 R60.0 30647 w/ cellulitis LLE-doubt DVT given no calf [...] exac erbation of chronic obstructive pulmonary disease 572625045 J44.1 622028 Status post neb sat 99% heart rate 71 and breath sounds clear- feels good/Needs to use 02 2lNC- sent in new albuterol mdi and nebulizer rx-patient 's nebulizer and her albuterol which may be outdated is at her daughters and she has run out of her albuterol MDI so new Rx sent. Advised using regularly will help with chronic dyspnea on exertion. [id number] Len Nguyen MD Main-[email or web address] ED Medical [address] [address] 03/23/2025 18:57:16 03/23/2025 23:47:02 Bilateral chronic pain of upper limbs 3628929086 1855023 M25.511 M25.512 G89.29 21613145 Health Concerns Section Related Observation LastModified by Organization Detai ls LastModified Time None Recorded Concern Status LastModified by Organization Details LastModified Time None Recorded Advance Directives Directive None Recorded Payers Insurance Date Sequence Insurance Name Policy Number Policy Mzea Covered Member ID Meza Member ID Guarantor Name 03/23/2025 1 [facility] - DOS ON OR AFTER 2022 - DUAL ELIGIBLE - CUSTODIAL OPTIONS AND ONE CARE (MEDICARE REPLACEMENT/ADV ANTAGE - HMO) Mary Lou Cisneros [id number] Mary Lou Cisneros Notes Date Note Type Note Provider Name and Address Organization Details Recorded Time 03/27/20 24 text/ht ml ROS as noted in the HPI CRC Nurse Triage Notes (Rishi Domínguez): Reason For Request: left leg pain Chief Complaints: Pain PMH: Diabetes, Hypertension, COPD/Asthma Other Allergies: NKDA Comments: Rate Supervisor verified the member's name//address and phone [...] Denies SOB ................................. ................................. ................................. ................................. ......... Quarter Lining Smoother Note From Markell Villagomez: Pt s daughter/CG reports pt was seen at [facility] last week for cellulitis of the [...] ......... Disposition: Fulfilled Radha Foster MD [address] [facility],[address], [place], [address], [facility] 03/27/2024 16:49:56 05/29/20 24 text/ht ml HPI: [...] Unable to bring pt to [facility] at [facility] as pt is bed bound. Agrees to [facility] referral. Confirmed address, contact number and allergies. ................................. ................................. ................................. ................................. ......... CRC Nurse Triage Notes (Melinda Melvin): Chief Complaints: Rash, UTI/Pyelonephritis PMH: COPD/Asthma, Diabetes, Hypertension, COPD/Asthma Other Allergies: CODIENE Comments: CRC RN did not require any additional information to process this visit. Quarter Lining Smoother Organization Information for Jerman Anderson Business Legal Name: [facility]. Address: [address] [place] [address], Template Cutter: Jhon HERNANDEZ No.: [id number] Quarter Lining Smoother POC Test Results from Jerman Anderson Blood [...] ++++ GLU ................................. ................................. ................................. ................................. ......... Quarter Lining Smoother Note From Jerman Anderson: [facility] visit for female pt. Pt presents with family and TOOL AND DIE REPAIR. Pt has reportedly had redness and irritation in her groin for 1 week in addition to high blood sugars. V/S taken as listed. Pt afebrile, though temp seems to be elevated with pt having taken acetaminophen today. TOOL AND DIE REPAIR changed pt's diaper and redness was noted in addition to smell consistent with possible fungal infection. Obtained urine sample positive for leukocytes and nitrates and blood and glucose. Blood glucose elevated at 335 mg/dL. Family reports difficulty maintaining blood sugar and that pt has not adhered to dietary restrictions. Urine culture obtained. Consulted with [facility] Dr. Nguyen who prescribed clotrimazole and ordered urine culture. Reviewed red flags for ED. Pt education provided. Culture delivered to [facility]. [facility] Lab Orders: culture, urine: Performed ................................. ................................. ................................. ................................. ......... Disposition: Fulfilled Len Nguyen MD [address] [place] [address],[address], [place], [address], [employer] 05/29/2024 22:50:45 09/25/19 25 text/ht ml CRC [...] s/s and seek emergency treatment if needed. Quarter Lining Smoother Organization Information for Markell Villagomez Business Legal Name: [facility] Address: [address] [place] [address], Template Cutter: Rob Bhagat MD CLIA No.: [id number] Quarter Lining Smoother POC Test Results from Markell Villagomez Rapid [...] reported s/s and seek emergency treatment if needed.[facility] HPI: known FM, chronic pain, uses oxycodone and gabapentin for this. 3-7d R ear pain. some sinus congestion ................................. ................................. ................................. ................................. ......... Quarter Lining Smoother Note From Markell Villagomez: This 74-year-old female [...] this plan. ................................. ................................. ................................. ................................. ......... [facility] Consulted: Michelle Rg ................................. ................................. ................................. ................................. ......... Disposition: Mathew Rg MD [address] [place] [address],[address], [place], [address], [employer] 09/25/2024 18:01:43 02/27/20 25 text/ht ml ROS as noted in the [facility] CRC Nurse Triage Notes (Agustín Shipley): Reason For Request: Pt's TOOL AND DIE REPAIR reporting discoloration changes in her legs (redness)Denies: [...] 74 y.o female complains of Extremity PainPatient's TOOL AND DIE REPAIR calling reporting patient is having red discoloration to L lower leg for the last two weeks. TOOL AND DIE REPAIR reports this has happened before and the [...] H&H on 08/02/2024 was 7.4 and 25.3 Quarter Lining Smoother Organization Information for Garrick El Josh Kapadia Legal Name: [facility]. Address: [address] [place] [address], Template Cutter: Jhon HERNANDEZ No.: [id number] Quarter Lining Smoother POC Test Results from [place] [facility] iSTAT Chem8+ (12:24:44) Na: 135 mEq/L K: 4.2 mEq/L Cl: 93 mEq/L iCa: 1.05 mmol/L TCO2: 32 mmol/L Glu: 264 mg/dL BUN: 23 mg/dL Crea: 1.4 mg/dL Hct: 24 % Hb: 8.2 g/dL A mmol/L Cartridge Number: [id number] Attachments uploaded as part of this test result can be found under Documents section. ................................. ................................. ................................. ................................. ......... Quarter Lining Smoother Note From [place]: Encountered patient supine [...] or inflammation. BMP performed, values uploaded via [employer]. Skin warm, dry and of appropriate [...] below the knee; peripheral pulses present throughout. [facility] contacted: reports they will treat patient for a suspected infection while also addressing possible fluid retention. Augmentin x1 administered. Albuterol neb treatment x1 administered. 40mg IM Furosemide administered. All medications administered after reconciling r ights with patient and family. [facility] reports they will send a prescription for [...] states she is comfortable remaining home today. [facility] Lab Orders: BMP, serum or plasma: Performed [facility] Medication Orders: amoxicillin 500 mg-potassium clavulanate 125 mg tablet: Administered furosemide 10 mg/mL injection solution: Administered albuterol sulfate 2.5 mg/3 mL (0.083 %) solution for nebulization: Administered ................................. ................................. ................................. ................................. ......... [facility] Consulted: Radha Foster ................................. ................................. ................................. ................................. ......... Disposition: Mathew Foster MD [address] [facility],[address], [place], [address], [facility] [employer] 02/26/2025 18:08:10 03/23/20 25 text/ht ml CRC [...] emergency care. ................................. ................................. ................................. ................................. ......... Quarter Lining Smoother Note From Jerman Anderson: [facility] visit for female patient complaining of left shoulder pain. Patient is Hungarian-speaking and an diplomatic interpreter/translator was used by phone throughout visit. Patient [...] taken is listed. Patient afebrile. Consulted with [facility] doctor timothy who advised that do patients chronic kidney disease we would not be able to administer NSAIDs or any other pain agents at this time. Patient told that she would have to follow up with primary care or go to the emergency department for any stronger pain medication. Patient education provided. ................................. ................................. ................................. ................................. ......... [facility] Consulted: Len Nguyen ................................. ................................. ................................. ................................. ......... Disposition: Fulfilled Len Nguyen MD [address] [facility],[address], [place], [address], [employer] 03/23/2025 22:05:38 OBGyn Episode No OBEpisode recorded.
--- OUTSIDE RECORDS SUMMARY | 2025-05-29 22:03 | XMS_ITS | Encounter Summary ---
Author Organization [employer] Address [address] [facility] [address] [place] [address] Care Team Providers Care Financial Foundations Representative Name Role Phone Amanda Watkins MD Primary Care Provide r Hiro Ram SANITARY INSPECTOR Unavailable Unavailable Raad Arias PharmD Unavailable [phone] Encounter Details Date Type Department Care Team (Late st Contact Info) Description 06/27/2024 Orders Only [facility] [address] [place] [address] Amanda Watkins MD [address] [place] [address] Social History Tobacco Use Types Packs/Day Years [...] Description 07/09/2025 3:30 PM EST Office Visit [facility] [address] [place] [address] Amanda Watkins MD [address] [place] [address] documented as of this encounter Visit Diagnoses Not on filedocumented in this encounter Additional Health Concerns Assessment Noted Time PHQ-9 Depression Total Score: 10 024 3:23 PM EDT documented as of this encounter Care Teams Financial Foundations Representative Relationship Specialty Start Date End Date Amanda Watkins MD [address] [place] [address] PCP - General Family Medicine 04/07/19 Hiro Ram FNP [address] [place] [address] Nurse Practitioner Family Medicine 07/06/23 Raad Arias, TheaD [address] [place] [address] Pharmacist Internal Medicine 10/19/24 [facility] 07/03/22 08/16/24 Ja [facility] 08/10/24 03/12/25 [facility] 03/08/25 documented as of this encounter
--- OUTSIDE RECORDS SUMMARY | 2025-05-29 22:03 | XMS_ITS | Encounter Summary ---
Author Organization [employer] Address [address] [facility] 7t [place] [address] Care Team Providers Care Fishing Vessel Deckhand Name Role Phone Amanda Watkins MD Primary Care Provide r Hiro Ram SUBMARINE WORKER Unavailable Unavailable Raad Arias PharmD Unavailable [phone] Encounter Details Date Type Department Care Team (Late st Contact Info) Description 12/22/[address] [facility] MEDICINE [address] [place] [address] Amanda Watkins MD [address] [place] [address] Social History Tobacco Use Types Packs/Day Years [...] Description 07/09/2025 3:30 PM EST Office Visit [facility] MED[facility] [address] [place] [address] Amanda Watkins MD [address] [place] [address] documented as of this encounter Procedures Procedure [...] AM EDT Narrative 01/05/2025 9:59 AM EDT [facility] [address] [place] [address] XRay Report Signed Patient: Mary Lou Godwin Z MR#: [id number] : 1950 Acct:[id number] Age/Sex: 74 / F ADM Date: 01/05/25 Loc: HO.ED Attending Dr: Ordering Physician: Yelena Alvarez MD Date of Service: 01/05/25 Procedure(s): XR humerus RT Accession Number(s): [id number] cc: Amanda Watkins MD; Yelena Alvarez MD [...] Hammer MD in OV> 01/05/25 0956 DD/ 0935 TD/TT: 01/05/25 0948 Supervisor Photoengraving: Procedure Note Donotuseinterpreter, Image - 01/05/2025 [place] [address] XRay Report Signed Patient: Mary Lou Godwin ZMR#: Josh [id number] : 1950cct:[id number] Age/Sex: 74 / FADM Date: 01/05/25 Loc: HO.ED Attending Dr: Ordering Physician: Yelena Alvarez MD Date of Service: 01/05/25 Procedure(s): XR humerus RT Accession Number(s): [id number] cc: Amanda Watkins MD; Yelena Alvarez MD [...] Dilip Hammer MD in OV> 01/05/2556 DD/ TD/TT: 01/05/2548 Supervisor Photoengraving: [facility] External Provider IMG XR PROCEDURES Edited Result - Final * XR Shoulder 2+ Views Right (01/05/2025 8:27 AM EDT) Anatomical Region Laterality Modality Upper Extremities, Shoulder Right Radi ographic Imaging 01/05/2025 8:27 AM EDT Narrative 01/05/2025 9:59 AM EDT [address] [address] XRay Report Signed Patient: Mary Lou Godwin MR#: [id number] : 1950 Acct:[id number] Age/Sex: 74 / F ADM Date: 01/05/25 Loc: .ED Attending Dr: Ordering Physician: Yelena Alvarez MD Date of Service: 01/05/25 Procedure(s): XR shoulder RT min 2V Accession Number(s): [id number] cc: Amanda Watkins MD; Yelena Alvarez MD [...] signed by Dilip Hammer MD in OV> 01/05/25955 DD/ 6 TD/TT: 01/05/25947 Supervisor Photoengraving: Procedure Note Donotuseinterpreter, Image - 01/05/[address] [address] XRay Report Signed Patient: Mary Lou Godwin ZMR#: [id number] : 9Acct:[id number] Age/Sex: 74 / FADM Date: 01/05/25 Loc: .ED Attending Dr: Ordering Physician: Yelena Alvarez MD Date of Service: 01/05/25 Procedure(s): XR shoulder RT min 2V Accession Number(s): [id number] cc: Amanda Watkins MD; Yelena Alvarez MD [...] in OV> 01/05/25 0956 DD/ 6 TD/TT: 01/05/25947 Supervisor Photoengraving: [facility] External Provider IMG XR PROCEDURES Edited Result - Final * XR Elbow 1-2 Views Right (01/05/2025 8:27 AM EDT) Anatomical Region Laterality Modality Upper Extremities, Elbow Right Radiogr aphic Imaging 01/05/2025 8:27 AM EDT Narrative 01/05/2025 9:57 AM EDT [address] [address] XRay Report Signed Patient: Mary Lou Godwin Z MR#: M [id number] : 1950 Acct:[id number] Age/Sex: 74 / F ADM Date: 01/05/25 Loc: HO.ED Attending Dr: Ordering Physician: Yelena Alvarez MD Date of Service: 01/05/25 Procedure(s): XR elbow RT 2V Accession Number(s): [id number] cc: Amanda Watkins MD; Yelena Alvarez MD [...] 01/05/25 0954 DD/ 0827 TD/TT: 01/05/25 0948 Supervisor Photoengraving: Procedure Note Donotuseinterpreter, Image - 01/05/[address] [address] XRay Report Signed Patient: Mary Lou Godwin ZMR#: [id number] : 1950cct:[id number] Age/Sex: 74 / FADM Date: 01/05/25 Loc: .ED Attending Dr: Ordering Physician: Yelena Alvarez MD Date of Service: 01/05/25 Procedure(s): XR elbow RT 2V Accession Number(s): [id number] cc: Amanda Watkins MD; Yelena Alvarez MD [...] signed by Dilip Hammer MD in OV> 01/05/2554 DD/ 6 TD/TT: 01/05/2548 Supervisor Photoengraving: [facility] External Provider IMG XR PROCEDURES Edited Result - Final documented in this encounter Visit Diagnoses Not on filedocumented in this encounter Additional Health Concerns Assessment Noted Time PHQ-9 Depression Total Score: 0 09/01/19 1:18 PM EST documented as of this encounter Care Teams Fishing Vessel Deckhand Relationship Specialty Start Date End Date Amanda Watkins MD [address] [place] [address] PCP - General Family Medicine 04/07/19 Hiro Ram FNP [address] [place] [address] Nurse Practitioner Family Medicine 07/06/23 Raad Arias PharmD [address] [place] [address] Pharmacist Internal Medicine 10/19/24 [facility] 08/10/24 03/12/25 [facility] 03/08/25 documented as of this encounter
--- OUTSIDE RECORDS SUMMARY | 2025-05-29 22:03 | XMS_ITS | Encounter Summary ---
Author Organization [employer] Address 75 [facility] 7t [place] [address] Care Team Providers Care Die Try Out Worker Name Role Phone Amanda Watkins MD Primary Care Provide r Hiro Ram SALES INTERN Unavailable Unavailable Raad Arias PharmD Unavailable [phone] Reason for Visit * Reason Comments Med Refill Encounter Details Date Type Department Care Team (Late st Contact Info) Description 09/27/2024 Refill [facility] MEDICINE 230 [place] [address] Ann Kulkarni DO [address] [place] [address] Social History Tobacco Use Types Packs/Day Years [...] Description 07/09/2025 3:30 PM EST Office Visit [facility] MEDICINE [address] [place] [address] Amanda Watkins MD [address] [place] [address] documented as of this encounter Visit Diagnoses Not on filedocumented in this encounter Additional Health Concerns Assessment Noted Time PHQ-9 Depression Total Score: 0 09/01/19 25 1:18 PM EST documented as of this encounter Care Teams Die Try Out Worker Relationship Specialty Start Date End Date Amanda Watkins MD [address] [place] [address] PCP - General Family Medicine 04/07/19 Hiro Ram FNP [address] [place] [address] Nurse Practitioner Family Medicine 07/06/23 Raad Arias, TheaD [address] [place] [address] Pharmacist Internal Medicine 10/19/24 [facility] 08/10/24 03/12/25 [facility] 03/08/25 documented as of this encounter
--- OUTSIDE RECORDS SUMMARY | 2025-05-29 22:03 | XMS_ITS | Encounter Summary ---
Author Organization [employer] Address [address] [facility] 7t [place] [address] Care Team Providers Care Eeg Technician Name Role Phone Amanda Watkins MD Primary Care Provide r Hiro Ram COTTON CHOPPER Unavailable Unavailable Raad Arias PharmD Unavailable [phone] Reason for Visit * Reason Comments Med Refill Encounter Details Date Type Department Care Team (Late st Contact Info) Description 10/16/2024 Refill [facility] MED & PEDS [address] [place] [address] Amanda Watkins MD 230 [place] [address] Chronic bilateral low back pain with bilateral [...] Description 07/09/2025 3:30 PM EST Office Visit [facility] MEDICINE [address] [place] [address] Amanda Watkins MD [address] [place] [address] documented as of this encounter Visit Diagnoses Diagnosis Chronic bilateral low back pain with bilateral sciatica documented in this encounter Additional Health Concerns Assessment Noted Time PHQ-9 Depression Total Score: 0 09/01/19 25 1:18 PM EST documented as of this encounter Care Teams Eeg Technician Relationship Specialty Start Date End Date Amanda Watkins MD [address] [place] [address] PCP - General Family Medicine 04/07/19 Hiro Ram FNP [address] [place] [address] Nurse Practitioner Family Medicine 07/06/23 Raad Arias, TheaD [address] [place] [address] Pharmacist Internal Medicine 10/19/24 [facility] 08/10/24 03/12/25 [facility] 03/08/25 documented as of this encounter
--- OUTSIDE RECORDS SUMMARY | 2025-05-29 22:03 | XMS_ITS | Encounter Summary ---
Author Organization [employer] Address [address] [facility] 7t [place] [address] Care Team Providers Care Valve Steamer Name Role Phone Amanda Watkins MD Primary Care Provide r Hiro Ram Unavailable Unavailable Raad Arias PharmD Unavailable [phone] Reason for Visit * Reason Comments Med Refill Encounter Details Date Type Department Care Team (Late st Contact Info) Description 11/18/2023 Refill [facility] MEDICINE [address] [place] [address] Hiro Ram FNP Social History Tobacco Use [...] Description 07/09/2025 3:30 PM EST Office Visit [facility] MEDICINE [address] [place] [address] Amanda Watkins MD [address] [place] [address] documented as of this encounter Visit Diagnoses Not on filedocumented in this encounter Additional Health Concerns Assessment Noted Time PHQ-9 Depression Total Score: 8 07/19/20 23 11:34 AM EST documented as of this encounter Care Teams Valve Steamer Relationship Specialty Start Date End Date Amanda Watkins MD [address] [place] [address] PCP - General Family Medicine 04/07/19 Hiro Ram FNP [address] [place] [address] Nurse Practitioner Family Medicine 07/06/23 Raad Arias, Carlos [address] [place] [address] Pharmacist Internal Medicine 10/19/24 [facility] 07/03/22 08/16/24 [place] 08/10/24 03/12/25 [facility] 7/31/25 documented as of this encounter
--- OUTSIDE RECORDS SUMMARY | 2025-05-29 22:03 | XMS_ITS | Encounter Summary ---
Author Organization [employer] Address [address] [facility] 7t [place] [address] Care Team Providers Care Policyholder Information Clerk Name Role Phone Amanda Watkins MD Primary Care Provide r Hiro Ram CNC MECHANIC Unavailable Unavailable Raad Arias PharmD Unavailable [phone] Reason for Visit * Reason Onset Date Comments Durable Medical Equipment 01/09/2025 Encounter Details Date Type Department Care Team (Late st Contact Info) Description 01/09/2025 Telephone [facility] MEDICINE [address] [place] [address] Amanda Watkins MD [address] [place] [address] Durable Medical Equipment Social History Tobacco Use [...] Description 07/09/2025 3:30 PM EST Office Visit [facility] MEDICINE [address] [place] [address] Amanda Watkins MD [address] [place] [address] documented as of this encounter Visit Diagnoses Not on filedocumented in this encounter Additional Health Concerns Assessment Noted Time PHQ-9 Depression Total Score: 0 09/01/19 1:18 PM EST documented as of this encounter Care Teams Policyholder Information Clerk Relationship Specialty Start Date End Date Amanda Watkins MD [address] [place] [address] PCP - General Family Medicine 04/07/19 Hiro Ram FNP [address] [place] [address] Nurse Practitioner Family Medicine 07/06/23 Raad Arias, TheaD [address] [place] [address] Pharmacist Internal Medicine 10/19/24 [facility] 08/10/24 03/12/25 [facility] 03/08/25 documented as of this encounter
--- OUTSIDE RECORDS SUMMARY | 2025-05-29 22:03 | XMS_ITS | Encounter Summary ---
Author Organization [employer] Address [address] [facility] 7t [place] [address] Care Team Providers Care Commercial Interior Designer Name Role Phone Amanda Watkins MD Primary Care Provide r Hiro Rma PROJECT ENGINEERING MANAGER Unavailable Unavailable Raad Arias PharmD Unavailable [phone] Reason for Visit * Reason Comments Med Refill Encounter Details Date Type Department Care Team (Late st Contact Info) Description 10/10/2024 Refill [facility] CH[facility] MED & PEDS [address] [place] [address] Amanda Watkins MD 230 [place] [address] Social History Tobacco Use Types Packs/Day Years [...] Description 07/09/2025 3:30 PM EST Office Visit [facility] MEDICINE [address] [place] [address] Amanda Watkins MD [address] [place] [address] documented as of this encounter Visit Diagnoses Not on filedocumented in this encounter Additional Health Concerns Assessment Noted Time PHQ-9 Depression Total Score: 0 09/01/19 25 1:18 PM EST documented as of this encounter Care Teams Commercial Interior Designer Relationship Specialty Start Date End Date Amanda Watkins MD [address] [place] [address] PCP - General Family Medicine 04/07/19 Hiro Ram FNP [address] [place] [address] Nurse Practitioner Family Medicine 07/06/23 Raad Arias, TheaD [address] [place] [address] Pharmacist Internal Medicine 10/19/24 [facility] 08/10/24 03/12/25 [facility] 03/08/25 documented as of this encounter
--- OUTSIDE RECORDS SUMMARY | 2025-05-29 22:03 | XMS_ITS | Encounter Summary ---
Author Organization [employer] Address [address] [facility] 7t [place] [address] Care Team Providers Care Data Modeling Architect Name Role Phone Amanda Watkins MD Primary Care Provide r Hiro Ram ANNOUNCER Unavailable Unavailable Raad Arias PharmD Unavailable [phone] Reason for Visit * Reason Comments Med Refill Encounter Details Date Type Department Care Team (Late st Contact Info) Description 05/24/2025 Refill [facility] MEDICINE 230 [place] [address] Amanda Watkins MD 230 [place], [place] [phone] Social History Tobacco Use Types Packs/Day Years [...] Visit [facility] MEDICINE [address] [place] [address] Amanda Watkins MD [address] [place] [address] documented as of this encounter Visit Diagnoses Not on filedocumented in this encounter Additional Health Concerns Assessment Noted Time PHQ-9 Depression Total Score: 14 025 2:41 PM EDT documented as of this encounter Care Teams Data Modeling Architect Relationship Specialty Start Date End Date Amanda Watkins MD [address] [place] [address] PCP - General Family Medicine 04/07/19 Hiro Ram FNP [address] [place] [address] Nurse Practitioner Family Medicine 07/06/23 Raad Arias, TheaD [address] [place] [address] Pharmacist Internal Medicine 10/19/24 [facility] 03/08/25 documented as of this encounter
--- OUTSIDE RECORDS SUMMARY | 2025-05-29 22:03 | XMS_ITS | Encounter Summary ---
Author Organization [employer] Address [address] [facility] 7t [place] [address] Care Team Providers Care Sound Recording Technician Name Role Phone Amanda Watkins MD Primary Care Provide r Hiro Ram ERP MANAGER Unavailable Unavailable Raad Arias PharmD Unavailable [phone] Reason for Visit * Reason Comments Med Refill Encounter Details Date Type Department Care Team (Late st Contact Info) Description 07/05/2024 Refill [facility] MEDICINE 230 [place] [address] Amanda Watkins MD [address] [place], [place] [phone] Social History Tobacco Use Types Packs/Day Years [...] Description 07/09/2025 3:30 PM EST Office Visit [facility] MEDICINE [address] [place] [address] Amanda Watkins MD [address] [place] [address] documented as of this encounter Visit Diagnoses Not on filedocumented in this encounter Additional Health Concerns Assessment Noted Time PHQ-9 Depression Total Score: 10 024 3:23 PM EDT documented as of this encounter Care Teams Sound Recording Technician Relationship Specialty Start Date End Date Amanda Watkins MD [address] [place] [address] PCP - General Family Medicine 04/07/19 Hiro Ram FNP [address] [place] [address] Nurse Practitioner Family Medicine 07/06/23 Raad Arias, Carlos [address] [place] [address] Pharmacist Internal Medicine 10/19/24 [facility] 07/03/22 08/16/24 [facility] 08/10/24 03/12/25 [facility] 03/08/25 documented as of this encounter
--- OUTSIDE RECORDS SUMMARY | 2025-05-29 22:03 | XMS_ITS | Encounter Summary ---
Author Organization [employer] Address 75 [facility] 7t [place] [address] Care Team Providers Care Grounds Crew Supervisor Name Role Phone Amanda Watkins MD Primary Care Provide r Hiro Ram CARDIAC SONOGRAPHER Unavailable Unavailable Raad Arias PharmD Unavailable [phone] Reason for Visit * Reason Onset Date Comments Hospital Follow-up 08/16/2024 Encounter Details Date Type Department Care Team (Late st Contact Info) Description 08/16/2024 Telephone [facility] MEDICINE [address] [place] [address] Amanda Watkins MD 230 [place], [place] [phone] Hospital Follow-up Social History Tobacco Use Types [...] from pt requesting a HDF appt. Hospital: [facility] Date of admission: 08/12/24 Discharge date: 08/15/2024 Diagnosed: (water in the lungs) *Send message to [facility] Care Coordinators documented in this encounter Plan of Treatment Upcoming Encounters Date Type Department Care Team (Late st Contact Info) Description 07/09/2025 3:30 PM EST Office Visit [facility] MEDICINE [address] [place] [address] Amanda Watkins MD [address] [place] [address] documented as of this encounter Visit Diagnoses Not on filedocumented in this encounter Additional Health Concerns Assessment Noted Time PHQ-9 Depression Total Score: 10 024 3:23 PM EDT documented as of this encounter Care Teams Grounds Crew Supervisor Relationship Specialty Start Date End Date Amanda Watkins MD 230 [place] [address] PCP - General Family Medicine 04/07/19 Hiro Ram FNP [address] [place] [address] Nurse Practitioner Family Medicine 07/06/23 Raad Arias, PharmD 230 [place] [address] Pharmacist Internal Medicine 10/19/24 [facility] 07/03/22 08/16/24 Ja [facility] 08/10/24 03/12/25 [facility] 03/08/25 documented as of this encounter
--- OUTSIDE RECORDS SUMMARY | 2025-05-29 22:03 | XMS_ITS | Patient Health Record ---
Author Organization [facility] Address [address] [facility] [address] [place] [address] Care Team Providers Care Tire Wrapper Name Role Phone Amanda Adame M.D. Primary Care Provider João Woodward Jr Results Component Value Reference Range Notes Pathology Reviewed date:03/21/2025 08:46:31 AM Interpretation: Performing Lab:[facility], [address] [place] [phone] Notes/Report: Reason For Referral No Information Problems Problem Type SNOMED Code ICD Code Onset Dates Problem Status W/U Status Risk Notes Problem Iron deficiency anemia (22314320) Iron deficiency anemia (D50.9) Active confirmed Problem Gastritis (7511623) Gastritis (K29.70) Active confirmed Encounters Encounter Location Date Provider Diagnosis [facility] [place] [address] [place] [id number] 03/06/2025 João Leon Jr [facility] [address] [place] [phone] 03/21/2025 João Leon Jr Plan Of Treatment Next Appt Details Provider Name:João yañez Jr, 07/26/2025 02:15:00 PM, [address] [facility], [address], [place], [address], Insurance Providers Payer Name Payer Address Payer Phone Subscriber Number Group Number Insured Name Patient Relationship to Insured Coverage Start Date Coverage End Date [facility] [address] Attn Claims CARLOS Varma [id number] JP MORGAN Self - patient is the insured
--- OUTSIDE RECORDS SUMMARY | 2025-05-29 22:03 | XMS_ITS | Encounter Summary ---
Author Organization [employer] Address 75 [facility] 7t [place] [address] Care Team Providers Care Cloth Winder Machine Operator Name Role Phone Amanda Watkins MD Primary Care Provide r Hiro Ram FOOD AND NUTRITION SUPERVISOR Unavailable Unavailable Raad Arias PharmD Unavailable [phone] Reason for Visit * Reason Onset Date Comments Med Refill 05/29/2025 Encounter Details Date Type Department Care Team ([facility] st Contact Info) Description 05/29/2025 Telephone [facility] MEDICINE [address] [place] [address] Amanda Watkins MD 230 [place] [address] Med Refill Social History Tobacco Use Types [...] encounter Miscellaneous Notes * Telephone Encounter - Kyaley Alanis RN - 05/29/2025 3:01 PM EDT Refill addressed in separate encounter * Telephone Encounter - Hugh Pablo - 05/29/2025 2:32 PM EDT TC from pt requesting medication refill. Medications needing refill : oxyCODONE-acetaminophen (Percocet) 5-325 MG tablet To be sent to: [facility] - [place], [place] - [address] [facility] documented in this encounter Plan of Treatment Upcoming Encounters Date Type Department Care Team (Late st Contact Info) Description 07/09/2025 3:30 PM EST Office Visit [facility] MEDICINE [address] [place] [address] Amanda Watkins MD [address] [place] [address] documented as of this encounter Visit Diagnoses Not on filedocumented in this encounter Additional Health Concerns Assessment Noted Time PHQ-9 Depression Total Score: 14 025 2:41 PM EDT documented as of this encounter Care Teams Cloth Winder Machine Operator Relationship Specialty Start Date End Date Amanda Watkins MD [address] [place] [address] PCP - General Family Medicine 04/07/19 Hiro Ram FNP [address] [place] [address] Nurse Practitioner Family Medicine 07/06/23 Raad Arias, TheaD [address] [place] [address] Pharmacist Internal Medicine 10/19/24 [facility] 03/08/25 documented as of this encounter
--- OUTSIDE RECORDS SUMMARY | 2025-05-29 22:03 | XMS_ITS | Encounter Summary ---
Author Organization [employer] Address 75 [facility] 7t [place] [address] Care Team Providers Care Auxiliary Operator Name Role Phone Amanda Watkins MD Primary Care Provide r Hiro Ram ELECTRIC MOTOR AND GENERATOR ASSEMBLER Unavailable Unavailable Raad Arias PharmD Unavailable [phone] Reason for Visit * Reason Onset Date Comments Nurse Triage 04/17/2025 Encounter Details Date Type Department Care Team ([facility] st Contact Info) Description 04/17/2025 Telephone [facility] MEDICINE 230 [place] [address] Amanda Watkins MD 230 [place] [address] Nurse Triage Social History Tobacco Use Types [...] Mary Lou Cisneros to triage below at [phone]. No answer, line not available. . Call to all other alterante numbers. Left VM to return call. Number listed as contact in CD[facility] visit notes as [phone]. No answer, LVM to return call to [facility] triage line. Pt has my chart set [...] crying screaming in pain. Contact musa at [phone] documented in this encounter Plan of Treatment Upcoming Encounters Date Type Department Care Team (Late st Contact Info) Description 07/09/2025 3:30 PM EST Office Visit [facility] MEDICINE [address] [place] [address] Amanda Watkins MD [address] [place] [address] documented as of this encounter Visit Diagnoses Not on filedocumented in this encounter Additional Health Concerns Assessment Noted Time PHQ-9 Depression Total Score: 14 025 2:41 PM EDT documented as of this encounter Care Teams Auxiliary Operator Relationship Specialty Start Date End Date Amanda Watkins MD [address] [place] [address] PCP - General Family Medicine 04/07/19 Hiro Ram FNP [address] [place] [address] Nurse Practitioner Family Medicine 07/06/23 Raad Arias, Carlos [address] [place] [address] Pharmacist Internal Medicine 10/19/24 [facility] 03/08/25 documented as of this encounter
--- OUTSIDE RECORDS SUMMARY | 2025-05-29 22:03 | XMS_ITS | Encounter Summary ---
Author Organization [employer] Address [address] [facility] [address] [place] [address] Care Team Providers Care Bread Slicer Machine Name Role Phone Amanda Watkins MD Primary Care Provide r Hiro Ram REGISTERED REPRESENTATIVE Unavailable Unavailable Raad Arias PharmD Unavailable [phone] Reason for Visit * Reason Onset Date Comments Med Refill 01/16/2025 Encounter Details Date Type Department Care Team ([facility] st Contact Info) Description 01/16/2025 Telephone [facility] [address] [place] [address] Amanda Watkins MD [address] [place] [address] Med Refill Social History Tobacco Use Types [...] 10:59 AM EDT Medication was sent to [facility] on 12/28/24 #30 with 2 refills. * Telephone Encounter - Radha Stevenson - 01/16/2025 10:54 AM EDT TC from pt requesting medication refill. Medications needing refill : levothyroxine (Synthroid, Levoxyl) 75 MCG tablet To be sent to: [facility] pharmacy documented in this encounter Plan of Treatment Upcoming Encounters Date Type Department Care Team (Late st Contact Info) Description 07/09/2025 3:30 PM EST Office Visit [facility] [address] [place], [place] [phone] Amanda Watkins MD [address] [place], [place] [phone] documented as of this encounter Visit Diagnoses Not on filedocumented in this encounter Additional Health Concerns Assessment Noted Time PHQ-9 Depression Total Score: 0 09/01/19 25 1:18 PM EST documented as of this encounter Care Teams Bread Slicer Machine Relationship Specialty Start Date End Date Amanda Watkins MD [address] [place] [id number] PCP - General Family Medicine 04/07/19 Hiro Ram FNP [address] [place] [id number] Nurse Practitioner Family Medicine 07/06/23 Raad Arias, TheaD [address] [place] [phone] Pharmacist Internal Medicine 10/19/24 Ja [facility] 08/10/24 03/12/25 [facility] 03/08/25 documented as of this encounter
--- OUTSIDE RECORDS SUMMARY | 2025-05-29 22:03 | XMS_ITS | Encounter Summary ---
Author Organization [employer] Address [address] [facility] [address]t [place] [address] Care Team Providers Care Sales Team Leader Name Role Phone Amanda Watkins MD Primary Care Provide r Hiro Ram MANAGER OF FINANCIAL PLANNING Unavailable Unavailable Raad Arias PharmD Unavailable [phone] Reason for Visit * Reason Onset Date Comments Hospital Follow-up 04/04/2024 Encounter Details Date Type Department Care Team (Late st Contact Info) Description 04/04/2024 Telephone [facility] MEDICINE [address] [place] [address] Amanda Watkins MD [address] [place], [place] [phone] Hospital Follow-up Social History Tobacco Use Types [...] from pt requesting a HDF appt. [place] [facility] [place] of admission: 03/18 Discharge date: 03/21 Diagnosed: Cellulitis documented in this encounter Plan of Treatment Upcoming Encounters Date Type Department Care Team (Late st Contact Info) Description 07/09/2025 3:30 PM EST Office Visit [facility] [address] [place] [phone] Amanda Watkins MD [address] [place] [address] documented as of this encounter Visit Diagnoses Not on filedocumented in this encounter Additional Health Concerns Assessment Noted Time PHQ-9 Depression Total Score: 10 024 3:23 PM EDT documented as of this encounter Care Teams Sales Team Leader Relationship Specialty Start Date End Date Amanda Watkins MD [address] [place] [id number] PCP - General Family Medicine 04/07/19 Hiro Ram FNP [address] [place] [address] Nurse Practitioner Family Medicine 07/06/23 Raad Arias, TheaD [address] [place] [address] Pharmacist Internal Medicine 10/19/24 [facility] 07/03/22 08/16/24 Ja [facility] 08/10/24 03/12/25 [facility] 03/08/25 documented as of this encounter
--- OUTSIDE RECORDS SUMMARY | 2025-05-29 22:03 | XMS_ITS | Encounter Summary ---
Author Organization [employer] Address [address] [facility] 7t [place] [address] Care Team Providers Care Talking Books Library Clerk Name Role Phone Amanda Watkins MD Primary Care Provide r Hiro Ram OFFICE MACHINE PUNCH OPERATOR Unavailable Unavailable Raad Arias PharmD Unavailable Reason for Visit * Reason Onset Date Comments Med Refill 05/25/2025 Encounter Details Date Type Department Care Team (Late st Contact Info) Description 05/25/2025 Refill [facility]INE [address] [place] [address] Amanda Watkins MD [address] [place] [address] Chronic bilateral low back pain with bilateral [...] * Telephone Encounter - Gisele Aguero - 05/25/2025 3:11 PM EDT TC from pt requesting medication refill. Medications needing refill : - oxyCODONE-acetaminophen (Percocet) 5-325 MG tablet To be sent to: - [facility] - [place], [place] - [address] [place] [address] documented in this encounter Plan of Treatment Upcoming Encounters Date Type Department Care Team (Late st Contact Info) Description 07/09/2025 3:30 PM EST Office Visit [facility] [address] [place] [address] Amanda Watkins MD [address] [place] [address] documented as of this encounter Visit Diagnoses Diagnosis Chronic bilateral low back pain with bilateral sciatica- Primary documented in this encounter Additional Health Concerns Assessment Noted Time PHQ-9 Depression Total Score: 14 025 2:41 PM EDT documented as of this encounter Care Teams Talking Books Library Clerk Relationship Specialty Start Date End Date Amanda Watkins MD [address] [place] [phone] PCP - General Family Medicine 04/07/19 Hiro Ram FNP [address] [place] [id number] Nurse Practitioner Family Medicine 07/06/23 Raad Arias, TheaD [address] [place] [address] Pharmacist Internal Medicine 10/19/24 [facility] 03/08/25 documented as of this encounter
[2025-05-29 22:09] LABS: Troponin-I High Sensitivity 10.2 ng/L (<3.5-17.0)
[2025-05-29 22:45] VITALS: BP 153/62
--- NOTE | 2025-05-29 23:11 | ED.ANXIETY ---
HPI - Anxiety General Chief Complaint: Anxiety Stated Complaint: Increased ax x1 week BGL reads HIGH on meter Time Seen by Provider: 05/29/25 22:03 Source: patient, family, RN notes reviewed, old records reviewed and wardrobe specialist Limitations: language barrier History of Present Illness ED Provider: Dr. Zoila Hyde HPI narrative: 74-year-old female with medical history of CKD stage 3, type 2 diabetes, HLD, HTN, CAD, HfPef, osteoporosis, arthritis, asthma, fibromyalgia, anemia, bradycardia, MDD, ANILA, presenting with anxiety that is been ongoing for the last 3 days. Family is at bedside and stating that they can not care for her at home because of how upset she has been. She is crying, unable to tell me anything besides feeling anxious and having restless legs. She is a diabetic that does not take her insulin as regularly as she should. She missed her insulin dose yesterday. Takes 28 units of Lantus at night. Denies associated fevers, cough or cold-type symptoms, chest pain, difficulty breathing, abdominal pain, vomiting, bowel changes, urinary complaints. She has chronic lower extremity venous stasis changes that are reportedly unchanged. Denies SI. Denies drug or alcohol use. Related Data Home Medications ?Medication ?Instructions ?Recorded ?Confirmed atorvastatin 80 mg tablet 80 mg PO BEDTIME 04/07/21 04/18/25 duloxetine 20 mg capsule,delayed 20 mg PO DAILY 03/18/24 04/18/25 release omeprazole 40 mg capsule,delayed 40 mg PO DAILY@0630 03/18/24 04/18/25 release trazodone 150 mg tablet 150 mg PO BEDTIME 10/06/24 04/18/25 calcium carbonate (Oyster Shell 500 mg PO BID 12/06/24 04/18/25 Calcium 500) hydroxyzine HCl 25 mg tablet 25 mg PO Q8H PRN anxiety 12/06/24 04/18/25 albuterol sulfate 2.5 mg/3 mL 2.5 mg inhalation Q6H PRN 03/04/25 04/18/25 (0.083 %) solution for nebulization Shortness Of Breath Or Wheezing albuterol sulfate 90 mcg/actuation 2 puff inhalation QID PRN 03/04/25 04/18/25 aerosol inhaler Shortness Of Breath Or Wheezing gabapentin 300 mg capsule 300 mg PO BID 03/04/25 04/18/25 aspirin 81 mg tablet,delayed 81 mg PO QAM 04/18/25 04/18/25 release cyclobenzaprine 5 mg tablet 5 mg PO TID 04/18/25 04/18/25 docusate sodium 100 mg capsule 100 mg PO BID 04/18/25 04/18/25 insulin degludec 200 unit/mL (3 67 unit subcut DAILY 04/18/25 04/18/25 mL) subcutaneous pen (Tresiba FlexTouch U-200 insulin) melatonin 5 mg tablet 5 mg PO BEDTIME 04/18/25 04/18/25 tirzepatide 5 mg/0.5 mL 5 mg subcut FR 04/18/25 04/18/25 subcutaneous pen injector (Lamont) Previous Rx's ?Medication ?Instructions ?Recorded apixaban 5 mg tablet (Eliquis) 5 mg PO BID #60 tabs 11/03/23 amlodipine 5 mg tablet 5 mg PO DAILY #30 tabs 06/20/24 torsemide 20 mg tablet 20 mg PO DAILY #30 tabs 06/20/24 levothyroxine 100 mcg tablet 100 mcg PO DAILY@0600 #90 tabs 03/07/25 (Synthroid) ferrous fumarate 324 mg (106 mg 324 mg PO DAILY #90 tabs 03/22/25 iron) tablet acetaminophen 325 mg tablet 650 mg (2 x 325 mg) PO Q6H PRN 04/20/25 Pain, Mild 1-3,Fever,Headache 30 days #240 tabs oxycodone 5 mg tablet 5 mg PO Q6H PRN pain 7 days #28 04/20/25 tabs cephalexin 500 mg capsule 500 mg PO BID 7 days #14 caps 05/23/25 doxycycline hyclate 100 mg capsule 100 mg PO BID 7 days #14 caps 05/23/25 Allergies Allergy/AdvReac Type Severity Reaction Status Date / Time codeine (CODEINE) Allergy Intermediate HALLUCINATI Verified 05/29/25 21:27 ONS Review of Systems Review of Systems: as per HPI, full review of systems performed and negative but for the above mentioned pertinent positives and negatives. FORMERLY [facility] Past Medical History Medical History Septic joint of right shoulder region Septic arthritis Urinary incontinence (HFpEF) heart failure with preserved ejection fraction Anxiety Insomnia CKD (chronic kidney disease) CKD stage 3 due to type 2 diabetes mellitus Leg abrasion Abuse of non-prescription analgesics Type 2 diabetes mellitus with unspecified complications Other and unspecified hyperlipidemia Essential hypertension Atherosclerotic cardiovascular disease Urgency incontinence Osteoporosis Arthritis Asthma Hypertension Fibromyalgia Diabetes mellitus Surgical History H/O tubal ligation History of hernia repair Social History Social History Household Members: Children Household Members Other:: son Housing: Apartment Are you a primary care transition manager to a significant other at home: No Do you presently have visiting nurse or other home services: No Alcohol intake: never 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 Patient Tobacco Use Status: Never used Tobacco Smoked in Last 30 Days: No e-Cigarette/Vaping Use: Never Used Use of substances other than those prescribed or required for medical reasons: No Advance Directives: Yes Advance Directives on File: Yes Advance Directives Date on File: 04/07/24 Do you have a plan to hurt others: No Plan service: No Sexual orientation: Straight/Heterosexual Physical Exam Exam: Exam: GENERAL: Anxious, tearful. SKIN: Normal skin color for ethnicity, warm, dry, intact, bilateral lower extremity chronic venous stasis changes with erythema, no vesicular lesions, no blistering, no petechiae. HEENT: Normocephalic, atraumatic, no stridor, posterior oropharynx nonerythematous, dentition intact, EOMI. NECK: Soft, supple, full ROM, midline structures nontender, no step-offs, no deformities, no lymphadenopathy. CHEST: Heart regular tachycardia, no murmurs, symmetric chest rise and fall, no crepitus. PULMONARY: Clear to auscultation bilaterally, no labored breathing, no wheezes/rhales/ rhonchi. ABDOMINAL: Soft, protuberant, nontender, positive bowel sounds in all quadrants. : Deferred. MUSCULOSKELETAL: Normal tone, full range of motion, no deformities, 3+ peripheral edema. NEURO: Alert and oriented x3, CN II through XII intact, equal strength and sensation bilateral upper and lower extremities, no focal neurologic deficits. PSYCHIATRIC: Anxious affect, tearful, fluid speech, good eye contact and appropriate demeanor. Vital Signs: Vital Signs: Last Vital Signs Temp 97.8 F 05/30/25 11:02 Pulse 57 05/30/25 11:02 Resp 16 05/30/25 11:02 BP 120/56 L 05/30/25 11:02 Pulse Ox 100 05/30/25 11:02 O2 Del Method Nasal Cannula 05/30/25 11:02 O2 Flow Rate 2 05/30/25 11:02 BMI result Body Mass Index 41.6 Course Reevaluation(s) Reevaluation #1: Rupinder: The patient is a 74-year-old woman who presented to the hospital yesterday with symptoms of anxiety and an elevated blood sugar. She was evaluated medically. She was given IV fluids to address her hyperglycemia. She was also given a dose of insulin. While in the emergency room she became agitated and was given medications for her agitation. Overall the impression was that she was hyperglycemic and consequently somewhat dehydrated but not otherwise significantly acutely ill. She was medically cleared for evaluation by the care team because she seemed quite upset and anxious. Today the patient was seen by the care team. The patient is still sleepy from sedative medications she had received. The patient's daughter is at the bedside and would like to take the patient home. The patient's daughter feels that the patient is essentially at her baseline and that they can try to continue to manage her at home. The daughter seems very responsible and appropriate and I think it would be reasonable to let the family take her home to try to better care for her there. Time: 14:06 Medications Administered Discontinued Medications Generic Name Dose Route Start Last Admin Trade Name Elkin PRN Reason Stop Dose Admin Diazepam 5 mg 05/29/25 23:08 05/29/25 23:15 Diazepam 10 Mg/2 Ml Cartridge IVPUSH 05/29/25 23:09 5 mg STAT STA Administration Diazepam 5 mg 05/30/25 07:36 05/30/25 08:03 Diazepam 10 Mg/2 Ml Cartridge IVPUSH 05/30/25 07:37 5 mg STAT STA Administration Diphenhydramine HCl 12.5 mg 05/29/25 22:24 05/29/25 22:42 Diphenhydramine Hcl 50 Mg/Ml Vial IVPUSH 05/29/25 22:25 12.5 mg ONCE ONE Administration Droperidol 0.625 mg 05/29/25 22:24 05/29/25 22:47 Droperidol 5 Mg/2 Ml Vial IVPUSH 05/29/25 22:25 0.625 mg ONCE ONE Administration Gabapentin 600 mg 05/30/25 00:26 05/30/25 00:32 Gabapentin 600 Mg Tablet PO 05/30/25 00:27 600 mg ONCE ONE Administration Sodium Chloride 1,000 mls @ 999 mls/hr 05/29/25 22:30 05/30/25 00:10 Ns IV 05/29/25 23:30 Infused .Q1H1M JULIANNE Infusion Lactated Ringer's 1,000 mls @ 999 mls/hr 05/30/25 00:26 05/30/25 03:06 Lr IV 05/30/25 01:26 Infused .Q1H1M ONE Infusion Acetaminophen 1,000 mg in 100 mls @ 400 mls/hr 05/30/25 00:26 05/30/25 01:03 Ofirmev IV 05/30/25 00:40 Infused ONCE ONE Infusion Lactated Ringer's 1,000 mls @ 999 mls/hr 05/30/25 05:09 05/30/25 06:40 Lr IV 05/30/25 06:09 Infused .Q1H1M ONE Infusion Insulin Glargine 11 unit 05/30/25 05:09 05/30/25 05:14 Insulin Glargine,Hum.Rec.Anlog 100 Unit/Ml 10 Ml Vial SUBCUT 05/30/25 05:10 11 unit ONCE ONE Administration Quetiapine Fumarate 50 mg 05/30/25 02:16 05/30/25 02:52 Quetiapine Fumarate 50 Mg Tablet PO 05/30/25 02:17 50 mg ONCE ONE Administration Ropinirole HCl 0.25 mg 05/30/25 02:43 05/30/25 03:06 Ropinirole Hcl 0.25 Mg Tablet PO 05/30/25 02:44 0.25 mg ONCE ONE Administration Medical Decision Making Medical Decision Making MDM Narrative: Patient presents with psychologic complaints. Differential diagnosis includes suicidal ideations, homicidal ideations, depression, anxiety, mood disorder, decompensated mental illnesses such as schizophrenia or bipolar disorder, medication noncompliance, among many others. Medical clearance protocol was initiated. Patient is also profoundly hyperglycemic with a blood sugar over 500. She is not currently in DKA. She has a normal pH and a slightly elevated bicarb level. Suspect HHS. Given 2 L of IV fluid. We will medicate with insulin as she remains hyperglycemic. Patient continues to be extremely agitated, requiring multiple doses of anxiolysis as well as sedation for restless legs. She is tearful, anxious, unable to be redirected. I think she could benefit from a psychiatry consult for her anxiety. Plan for case management and psych consult. Differential Diagnosis Differential Diagnoses: The differential diagnosis associated with the presentation includes (as above) Admission/Observation Consideration of admission/observation: Escalation of care including admission/observation considered Lab Data MDM Lab Attestation statement: I reviewed the patient's lab results. 05/29/25 21:42 05/29/25 21:42 Labs: Lab Results 05/29/25 05/29/25 05/29/25 Range/Units 21:31 21:42 23:59 WBC 4.9 (4.8-10.8) X10*3/uL RBC 4.31 (4.20-5.50) X10*6/uL Hgb 11.4 L (12.0-16.0) g/dl Hct 34.3 L (37.0-47.0) % MCV 79.6 L (80.0-98.0) fL MCH 26.5 L (27.0-33.0) pg MCHC 33.2 (31.0-35.0) g/dl RDW 16.6 H (11.0-16.0) % Plt Count 178 (160-400) X10*3/uL MPV 10.4 (9.4-12.3) fL Immature Gran % (Auto) 0.4 (0.0-0.4) % Neut % (Auto) 61.0 (45-73) % Lymph % (Auto) 26.3 (20-40) % Collier % (Auto) 7.8 (2-11) % Eos % (Auto) 3.5 (0-4) % Baso % (Auto) 1.0 (0-2) % Lymph # (Auto) 1.3 (1.2-4.9) X10*3/uL Collier # (Auto) 0.4 (0.1-1.2) X10*3/uL Eos # (Auto) 0.2 (0.0-0.4) X10*3/uL Baso # (Auto) 0.1 (0.0-0.2) X10*3/uL Abs Immat Gran (auto) 0.02 (0.00-0.03) X10*3/uL Absolute Neuts (auto) 3.0 (2.0-8.3) x10*3/uL Absolute Nucleated RBC 0.000 (0.0-0.012) X10*3/uL Nucleated RBC % (auto) 0.0 (0.0-0.2) /100WBC VBG pH (7.32-7.43) VBG pCO2 mmHg VBG pO2 mmHg VBG HCO3 (22-26) mmol/L VBG O2 Saturation % VBG Base Excess mmol/L Sodium 133 L (135-145) mmol/L Potassium 4.3 (3.3-5.1) mmol/L Chloride 93 L (96-108) mmol/L Carbon Dioxide 31 H (22-29) mmol/L Anion Gap 13 (12-20) BUN 23 H (9-16) mg/dL Creatinine 1.41 H (0.5-1.4) mg/dL Estim Creat Clear Calc 41.7 Estimated GFR 36 POC Glucose 523 H* 434 H* (60-115) mg/dL Random Glucose 578 H* (60-115) mg/dL Calcium 8.9 (8.4-10.2) mg/dL Troponin I High Sens 10.2 (<3.5-17.0) ng/L Urine Color Urine Appearance Urine pH (5.0-9.0) Ur Specific [place] (1.005-1.025) Urine Protein (Neg-Trace) mg/dL Urine Glucose (UA) (Negative) mg/dL Urine Ketones (Negative) mg/dL Urine Blood (Negative) Urine Nitrite (Negative) Ur Leukocyte Esterase (Negative) Urine RBC (0-2) /HPF Urine WBC (0-5) /HPF Ur Squamous Epith Cells (0-2) /HPF Urine Bacteria (None Seen) Hyaline Casts (0-2) /LPF Salicylates (15-30) mg/dL Urine Opiates Screen (Not Detect) Ur Buprenorphine Scrn (Not Detect) ng/mL Ur Oxycodone Screen (Not Detect) ng/mL Urine Methadone Screen (Not Detect) ng/mL Urine Fentanyl Screen (Not Detect) Acetaminophen (<30) mcg/mL Ur Barbiturates Screen (Not Detect) Ur Phencyclidine Scrn (Not Detect) Ur Amphetamines Screen (Not Detect) U Benzodiazepines Scrn (Not Detect) Urine Cocaine Screen (Not Detect) U Marijuana (THC) Screen (Not Detect) Ethyl Alcohol < 10 mg/dL 05/30/25 05/30/25 05/30/25 Range/Units 00:14 00:19 02:57 WBC (4.8-10.8) X10*3/uL RBC (4.20-5.50) X10*6/uL Hgb (12.0-16.0) g/dl Hct (37.0-47.0) % MCV (80.0-98.0) fL MCH (27.0-33.0) pg MCHC (31.0-35.0) g/dl RDW (11.0-16.0) % Plt Count (160-400) X10*3/uL MPV (9.4-12.3) fL Immature Gran % (Auto) (0.0-0.4) % Neut % (Auto) (45-73) % Lymph % (Auto) (20-40) % Collier % (Auto) (2-11) % Eos % (Auto) (0-4) % Baso % (Auto) (0-2) % Lymph # (Auto) (1.2-4.9) X10*3/uL Collier # (Auto) (0.1-1.2) X10*3/uL Eos # (Auto) (0.0-0.4) X10*3/uL Baso # (Auto) (0.0-0.2) X10*3/uL Abs Immat Gran (auto) (0.00-0.03) X10*3/uL Absolute Neuts (auto) (2.0-8.3) x10*3/uL Absolute Nucleated RBC (0.0-0.012) X10*3/uL Nucleated RBC % (auto) (0.0-0.2) /100WBC VBG pH 7.43 (7.32-7.43) VBG pCO2 55 mmHg VBG pO2 98 mmHg VBG HCO3 37 H (22-26) mmol/L VBG O2 Saturation 95.0 % VBG Base Excess 11.6 mmol/L Sodium (135-145) mmol/L Potassium (3.3-5.1) mmol/L Chloride (96-108) mmol/L Carbon Dioxide (22-29) mmol/L Anion Gap (12-20) BUN (9-16) mg/dL Creatinine (0.5-1.4) mg/dL Estim Creat Clear Calc Estimated GFR POC Glucose 386 H* (60-115) mg/dL Random Glucose (60-115) mg/dL Calcium (8.4-10.2) mg/dL Troponin I High Sens (<3.5-17.0) ng/L Urine Color Urine Appearance Urine pH (5.0-9.0) Ur Specific [place] (1.005-1.025) Urine Protein (Neg-Trace) mg/dL Urine Glucose (UA) (Negative) mg/dL Urine Ketones (Negative) mg/dL Urine Blood (Negative) Urine Nitrite (Negative) Ur Leukocyte Esterase (Negative) Urine RBC (0-2) /HPF Urine WBC (0-5) /HPF Ur Squamous Epith Cells (0-2) /HPF Urine Bacteria (None Seen) Hyaline Casts (0-2) /LPF Salicylates < 5.0 L (15-30) mg/dL Urine Opiates Screen (Not Detect) Ur Buprenorphine Scrn (Not Detect) ng/mL Ur Oxycodone Screen (Not Detect) ng/mL Urine Methadone Screen (Not Detect) ng/mL Urine Fentanyl Screen (Not Detect) Acetaminophen < 3 (<30) mcg/mL Ur Barbiturates Screen (Not Detect) Ur Phencyclidine Scrn (Not Detect) Ur Amphetamines Screen (Not Detect) U Benzodiazepines Scrn (Not Detect) Urine Cocaine Screen (Not Detect) U Marijuana (THC) Screen (Not Detect) Ethyl Alcohol mg/dL 05/30/25 05/30/25 05/30/25 Range/Units 05:56 05:57 07:39 WBC (4.8-10.8) X10*3/uL RBC (4.20-5.50) X10*6/uL Hgb (12.0-16.0) g/dl Hct (37.0-47.0) % MCV (80.0-98.0) fL MCH (27.0-33.0) pg MCHC (31.0-35.0) g/dl RDW (11.0-16.0) % Plt Count (160-400) X10*3/uL MPV (9.4-12.3) fL Immature Gran % (Auto) (0.0-0.4) % Neut % (Auto) (45-73) % Lymph % (Auto) (20-40) % Collier % (Auto) (2-11) % Eos % (Auto) (0-4) % Baso % (Auto) (0-2) % Lymph # (Auto) (1.2-4.9) X10*3/uL Collier # (Auto) (0.1-1.2) X10*3/uL Eos # (Auto) (0.0-0.4) X10*3/uL Baso # (Auto) (0.0-0.2) X10*3/uL Abs Immat Gran (auto) (0.00-0.03) X10*3/uL Absolute Neuts (auto) (2.0-8.3) x10*3/uL Absolute Nucleated RBC (0.0-0.012) X10*3/uL Nucleated RBC % (auto) (0.0-0.2) /100WBC VBG pH (7.32-7.43) VBG pCO2 mmHg VBG pO2 mmHg VBG HCO3 (22-26) mmol/L VBG O2 Saturation % VBG Base Excess mmol/L Sodium (135-145) mmol/L Potassium (3.3-5.1) mmol/L Chloride (96-108) mmol/L Carbon Dioxide (22-29) mmol/L Anion Gap (12-20) BUN (9-16) mg/dL Creatinine (0.5-1.4) mg/dL Estim Creat Clear Calc Estimated GFR POC Glucose 285 H (60-115) mg/dL Random Glucose (60-115) mg/dL Calcium (8.4-10.2) mg/dL Troponin I High Sens (<3.5-17.0) ng/L Urine Color Yellow Urine Appearance Clear Urine pH 8.0 (5.0-9.0) Ur Specific [place] 1.015 (1.005-1.025) Urine Protein Negative (Neg-Trace) mg/dL Urine Glucose (UA) >=1000 H (Negative) mg/dL Urine Ketones Negative (Negative) mg/dL Urine Blood Negative (Negative) Urine Nitrite Negative (Negative) Ur Leukocyte Esterase Negative (Negative) Urine RBC 0-2 (0-2) /HPF Urine WBC 0-5 (0-5) /HPF Ur Squamous Epith Cells 0-2 (0-2) /HPF Urine Bacteria None Seen (None Seen) Hyaline Casts 0-2 (0-2) /LPF Salicylates (15-30) mg/dL Urine Opiates Screen Not Detected (Not Detect) Ur Buprenorphine Scrn Not Detected (Not Detect) ng/mL Ur Oxycodone Screen Positive H (Not Detect) ng/mL Urine Methadone Screen Not Detected (Not Detect) ng/mL Urine Fentanyl Screen Not Detected (Not Detect) Acetaminophen (<30) mcg/mL Ur Barbiturates Screen Not Detected (Not Detect) Ur Phencyclidine Scrn Not Detected (Not Detect) Ur Amphetamines Screen Not Detected (Not Detect) U Benzodiazepines Scrn Not Detected (Not Detect) Urine Cocaine Screen Not Detected (Not Detect) U Marijuana (THC) Screen Not Detected (Not Detect) Ethyl Alcohol mg/dL Critical Care Time Critical Care Time Critical Care Time: Yes Total Critical Care Time: 55 Attestation: CRITICAL CARE TIME: 55 minutes of critical care time was spent in direct patient care at the bedside or in the immediate area with this patient. Critical care was necessary to treat or prevent imminent or life-threatening deterioration of the following conditions severe agitation, frequent re-dosing of sedative medications due to extreme anxiety, restless legs and pain. This patient is high risk for decompensation and/or . This time was spent assessing and managing the patient, interpreting labs and imaging, coordinating care with other medical providers, gathering history from either the patient, their representatives, EMS or chart review, and discussing management with family, patient, psychiatry. Discharge Plan Discharge Clinical Impression: Acute anxiety, Restless legs, Diabetes mellitus with hyperglycemia, Fibromyalgia Patient Disposition: Home, Self-Care Additional Instructions: Please continue all of her regular medications. Please continue your plans to try to get additional counseling help. Please also have her follow up with the regular primary care provider. Return to the emergency room if significantly worse. Prescriptions: No Action atorvastatin 80 mg tablet 80 mg PO BEDTIME Eliquis 5 mg Tablet 5 mg PO BID Qty: 60 0RF omeprazole 40 mg capsule,delayed release(DR/EC) 40 mg PO DAILY@0630 duloxetine 20 mg capsule,delayed release(DR/EC) 20 mg PO DAILY calcium carbonate [Oyster Shell Calcium 500] 500 mg calcium (1,250 mg) tablet 500 mg PO BID Patient Comments: Applies to legs hydroxyzine HCl 25 mg tablet 25 mg PO Q8H PRN (Reason: anxiety) torsemide 20 mg tablet 20 mg PO DAILY Qty: 30 0RF amlodipine 5 mg Tablet 5 mg PO DAILY Qty: 30 0RF Protocol: Hold for SBP< HOLD for SBP < : 90 trazodone 150 mg tablet 150 mg PO BEDTIME albuterol sulfate 2.5 mg /3 mL (0.083 %) solution for nebulization 2.5 mg inhalation Q6H PRN (Reason: Shortness Of Breath Or Wheezing) gabapentin 300 mg capsule 300 mg PO BID albuterol sulfate 90 mcg/actuation HFA aerosol inhaler 2 puff INHALATION QID PRN (Reason: Shortness Of Breath Or Wheezing) levothyroxine [Synthroid] 100 mcg Tablet 100 mcg PO DAILY@0600 Qty: 90 0RF aspirin 81 mg tablet,delayed release (DR/EC) 81 mg PO QAM docusate sodium 100 mg capsule 100 mg PO BID cyclobenzaprine 5 mg tablet 5 mg PO TID melatonin 5 mg tablet 5 mg PO BEDTIME insulin degludec [Tresiba FlexTouch U-200] 200 unit/mL (3 mL) insulin pen 67 unit subcut DAILY Mounjaro 5 mg/0.5 mL pen injector 5 mg SUBCUT FR acetaminophen 325 mg Tablet 650 mg PO Q6H PRN (Reason: Pain, Mild 1-3,Fever,Headache) 30 Days Qty: 240 0RF oxycodone 5 mg tablet 5 mg PO Q6H PRN (Reason: pain) 7 Days Qty: 28 0RF Rx Instructions: Partial Fill upon patient request. cephalexin 500 mg capsule 500 mg PO BID 7 Days Qty: 14 0RF doxycycline hyclate 100 mg capsule 100 mg PO BID 7 Days Qty: 14 0RF ferrous fumarate 324 mg (106 mg iron) tablet 324 mg PO DAILY Qty: 90 0RF Referrals: Amanda Watkins MD [Primary Care Provider, Internal Medicine] Print Language: Bengali
[2025-05-29 23:15] VITALS: BP 153/62; PULSE 63; RESP 20; O2SAT 100
[2025-05-29] MEDS: diazePAM 10 MG/2 ML CARTRIDGE 5 MG IVPUSH (23:15)
--- NOTE | 2025-05-29 23:23 | PC.NURSE ---
assumed care of patient. patient awake, crying, restless in bed. daughter at bedside. told her daughter she wants to sign out AMA. daughters concerned about patients mental well being. states she does take care of her blood sugars. was supposed to see outpatient psych but did not ever go to appointments so was cancelled from office. provider made aware of patients status. medicated with IV Valium per orders. patient sleeping at this time. daughter left for the night but left her phone number with PHILLIP
[2025-05-30 00:13] LABS: Glucose, Whole Blood 434 mg/dL (60-115)
[2025-05-30 00:18] VITALS: BP 139/60; PULSE 65; RESP 16; TEMP 36.6; O2SAT 100
[2025-05-30 00:20] LABS: Venous Blood Gas Refer to POC result
[2025-05-30 00:27] LABS: VBG HCO3 37 mmol/L (22-26); VBG O2 % Saturation 95.0 %
[2025-05-30 00:43] LABS: Acetaminophen LAB < 3 mcg/mL (<30); Salicylate < 5.0 mg/dL (15-30)
[2025-05-30] MEDS: Lactated Ringers 1,000 ML 999 ML IV ×2 (01:03→05:15)
[2025-05-30 03:01] LABS: Glucose, Whole Blood 386 mg/dL (60-115)
[2025-05-30] MEDS: Insulin Glargine,Hum.rec.anlog 100 UNIT/ML 10 ML VIAL 11 UNIT SUBCUT (05:14)
[2025-05-30 05:17] VITALS: BP 104/56; PULSE 62; RESP 20; TEMP 36.2; O2SAT 99
[2025-05-30 06:08] LABS: Appearance Urine Clear; Glucose Urine UA >=1000 mg/dL (Negative); PH 8.0 (5.0-9.0); Specific Gravity - Urine 1.015 (1.005-1.025); UMIC TRIGGER UACC YES
[2025-05-30 06:20] LABS: Cannabinoid Screen Urine Not Detected (Not Detect)
[2025-05-30 07:44] LABS: Glucose, Whole Blood 285 mg/dL (60-115)
[2025-05-30] MEDS: diazePAM 10 MG/2 ML CARTRIDGE 5 MG IVPUSH (08:03)
[2025-05-30 08:05] VITALS: BP 162/79; PULSE 66; RESP 16; O2SAT 95
--- NOTE | 2025-05-30 08:06 | PC.NURSE ---
Pt c/o anxiety and severe ;eg pain and restelessness, provider notified med given per order. VSS
--- NOTE | 2025-05-30 08:37 | MHC.CM.ED ---
Received case management consult from Dr Hyde. Patient came to the ER due to anxiety and elevated blood sugar. Care Team consult is ordered and pending. CM consult will be deferred until cleared by Care Team. Continue to monitor for d/c needs.
--- NOTE | 2025-05-30 10:21 | PC.NURSE ---
Pt resting quetely with eyes closed. VSS NAD
[2025-05-30 11:02] VITALS: BP 120/56; PULSE 57; RESP 16; TEMP 36.6; O2SAT 100
[2025-05-30 14:21] VITALS: BP 120/56; PULSE 57; RESP 16; TEMP 36.6; O2SAT 100
== END 2025-05-30 16:16 | disposition home or self-care (01) ==
PROVIDERS: Emergency Provider Emergency Medicine; PCP Internal Medicine
DX: F41.9 Anxiety disorder, unspecified (principal); E11.65 Type 2 diabetes mellitus with hyperglycemia; M79.7 Fibromyalgia; E86.0 Dehydration; R45.1 Restlessness and agitation; G25.81 Restless legs syndrome; I13.0 Hypertensive heart and chronic kidney disease with heart failure and stage 1 through stage 4 chronic kidney disease, or unspecified chronic kidney disease; I50.32 Chronic diastolic (congestive) heart failure; N18.30 Chronic kidney disease, stage 3 unspecified; E11.22 Type 2 diabetes mellitus with diabetic chronic kidney disease; Z79.899 Other long term (current) drug therapy; Z91.148 Patient's other noncompliance with medication regimen for other reason
CPT/HCPCS: 36415; 80048; 80143; 80179; 80307; 81001; 82803; 82947; 84484; 85025; 96361; 96365; 96375; 96376; 99285; J0131; J1200; J1790; J3360; J7120; S9485

== ENCOUNTER 2025-06-03 07:39 | Emergency (ER) | payer OTHER, SELFPAY ==
--- OUTSIDE RECORDS SUMMARY | 2025-03-06 06:50 | XMS_ITS ---
Author Organization [facility] Address [address] [place] [address] Care Team Providers Care Machine Overhauler Name Role Phone Amanda Adame M.D. Primary Care Provider Geoff Leon Jr, João Marie REASON FOR VISIT anemia Encounters Encounter Location Date Provider Diagnosis [facility] [place] [address] [place], [place] [id number] 03/06/2025 João Leon Jr Plan Of Treatment Next Appt Details Provider Name:João yañez Jr, 07/26/2025 02:15:00 PM, [address], [address], [place], [address], Progress Notes * JP MORGANDOB:[birth year] (74 yo F)Acc No.[id number]:03/06/2025 EGD and COL/MAC Patient: JP HINKLE Provider: Shannan Leon MD :1950 A ge:74 Y S ex:Female Date:03/06/2025 Address:[address] [place] [address] [address] , [place], [place] Pcp:Amanda Adame M.D. Subjective: * Chief Complaints: [...] 03/06/2025 Generated for Selene garcia/Thad/Miriamitting on: 1 08:03 AM EDT
--- NOTE | ~2025-06-03 | CT_ITS ---
CLINICAL HISTORY: fall CT cervical spine without contrast Comparison: None provided Findings: Vertebral alignment is within normal limits. There is severe chronic degenerative disc disease at the C4-5 and C5-6 levels. No acute fractures or dislocations. Visualized intracranial contents are unremarkable. Soft tissues of the neck are normal. Lung apices are clear. IMPRESSION: No acute findings. This document has been electronically signed by: Domenic De La Cruz MD on 06/03/2025 11:40:50
--- NOTE | ~2025-06-03 | XR_ITS ---
CLINICAL HISTORY: pain s p fall 3 view left shoulder Comparison: None provided Findings: Bones intact. No dislocations. There are degenerative changes with glenohumeral joint space narrowing. No erosions. No radiopaque foreign body. IMPRESSION: 1. No acute findings This document has been electronically signed by: Domenic De La Cruz MD on 06/03/2025 11:39:52
--- NOTE | ~2025-06-03 | CT_ITS ---
CLINICAL HISTORY: fall CT head without contrast Comparison: CT/SR - CT HEAD WITHOUT IV CONTRAST - 06/22/24 18:04 EST Findings: No intra-axial mass, midline shift, hydrocephalus, or acute hemorrhage. There is mild cortical atrophy. There is no sinus or mastoid fluid. The orbits are within normal limits. There is no acute fracture. IMPRESSION: 1. No acute intracranial findings. This document has been electronically signed by: Domenic De La Cruz MD on 06/03/2025 11:57:35
--- NOTE | ~2025-06-03 | XR_ITS ---
CLINICAL HISTORY: pain s p fall 4 view left wrist Comparison: None provided Findings: Bones intact. No dislocations. No significant loss of joint space, osteophyte, or erosions. No radiopaque foreign body. Vascular calcifications are noted. IMPRESSION: 1. No acute findings This document has been electronically signed by: Domenic De La Cruz MD on 06/03/2025 11:35:53
[2025-06-03 07:51] VITALS: BP 125/54; BP 132/82; PULSE 66; PULSE 81; RESP 18; TEMP 37; O2SAT 95; O2SAT 96; BMI 42.8
--- OUTSIDE RECORDS SUMMARY | 2025-06-03 08:02 | XMS_ITS | Encounter Summary ---
Author Organization [employer] Address [address] [place] [address] Care Team Providers Care Sales And Training Specialist Name Role Phone Amanda Watkins MD Primary Care Provide r Hiro Ram MIXER RUNNER Unavailable Unavailable Raad Arias PharmD Unavailable [phone] Reason for Visit * Reason Comments Med Refill Encounter Details Date Type Department Care Team (Late st Contact Info) Description 10/10/2024 Refill [facility] [address] [place] [address] Amanda Watkins MD [address] [place] [address] Social History Tobacco Use Types Packs/Day Years [...] Care Team (Late st Contact Info) Description 06/08/2025 2:00 PM EDT Telemedicine [facility] [address] [place] [phone] Kayley Alanis RN 07/09/2025 3:30 PM EST Office Visit [facility] [address] [place] [phone] Amanda Watkins MD [address] [place] [phone] documented as of this encounter Visit Diagnoses Not on filedocumented in this encounter Additional Health Concerns Assessment Noted Time PHQ-9 Depression Total Score: 0 09/01/19 25 1:18 PM EST documented as of this encounter Care Teams Sales And Training Specialist Relationship Specialty Start Date End Date Amanda Watkins MD [address] [place] [id number] PCP - General Family Medicine 04/07/19 Hiro Ram FNP [address] [place] [phone] Nurse Practitioner Family Medicine 07/06/23 Raad Arias, PharmD [address] [facility] [place] [id number] Pharmacist Internal Medicine 10/19/24 Ja [facility] 08/10/24 03/12/25 [facility] 03/08/25 documented as of this encounter
--- OUTSIDE RECORDS SUMMARY | 2025-06-03 08:02 | XMS_ITS | Encounter Summary ---
Author Organization [employer] Address [address] [place] [address] 7t [place] [address] Care Team Providers Care Tobacco Sorter Name Role Phone Amanda Watkins MD Primary Care Provide r Hiro Ram DEXIGRAPH OPERATOR Unavailable Unavailable Raad Arias PharmD Unavailable [phone] Encounter Details Date Type Department Care Team ([facility] st Contact Info) Description 09/06/2024 Orders Only [facility] MED & PEDS [address] [place], [place] [phone] MiltonWaldemar Chance MD [address] [place] [address] Social History Tobacco Use Types Packs/Day Years [...] Info) Description 06/08/2025 2:00 PM EDT Telemedicine [facility] MEDICINE [address] [place] [address] Kayley Alanis RN 07/09/2025 3:30 PM EST Office Visit [facility] [address] [place] [phone] Amanda Watkins MD [address] [place] [address] documented as of this encounter Visit Diagnoses Not on filedocumented in this encounter Additional Health Concerns Assessment Noted Time PHQ-9 Depression Total Score: 0 09/01/19 25 1:18 PM EST documented as of this encounter Care Teams Tobacco Sorter Relationship Specialty Start Date End Date Amanda Watkins MD [address] [place] [address] PCP - General Family Medicine 04/07/19 Hiro Ram FNP [address] [place] [address] Nurse Practitioner Family Medicine 07/06/23 Raad Arias, TheaD [address] [place] [address] [place] [address] Pharmacist Internal Medicine 10/19/24 Ja ARCE 08/10/24 03/12/25 [facility] 03/08/25 documented as of this encounter
--- OUTSIDE RECORDS SUMMARY | 2025-06-03 08:02 | XMS_ITS | Encounter Summary ---
Author Organization [employer] Address [address] [facility] 7t [place] [address] Care Team Providers Care Detail Supervisor Name Role Phone Amanda Watkins MD Primary Care Provide r Hiro Ram DROP FORGER Unavailable Unavailable Raad Arias PharmD Unavailable Reason for Visit * Reason Comments Med Refill Encounter Details Date Type Department Care Team (Late st Contact Info) Description 09/27/2024 Refill [facility] MEDICINE [address] [place] [address] Ann Kulkarni DO [address] [place] [address] Social History Tobacco Use Types Packs/Day Years [...] Info) Description 06/08/2025 2:00 PM EDT Telemedicine [facility] MEDICINE [address] [place] [phone] Kayley Alanis RN 07/09/2025 3:30 PM EST Office Visit [facility] MEDICINE [address] [place] [address] Amanda Watkins MD [address] [place] [address] documented as of this encounter Visit Diagnoses Not on filedocumented in this encounter Additional Health Concerns Assessment Noted Time PHQ-9 Depression Total Score: 0 09/01/19 25 1:18 PM EST documented as of this encounter Care Teams Detail Supervisor Relationship Specialty Start Date End Date Amanda Watkins MD [address] [place] [address] PCP - General Family Medicine 04/07/19 Hiro Ram FNP [address] [place] [address] Nurse Practitioner Family Medicine 07/06/23 Raad Arias, TheaD [address] [place] [address] Pharmacist Internal Medicine 10/19/24 Ja ARCE 08/10/24 03/12/25 [facility] 03/08/25 documented as of this encounter
--- OUTSIDE RECORDS SUMMARY | 2025-06-03 08:02 | XMS_ITS | Patient Health Record ---
Author Organization [facility] Address [address] [facility] [address] [place] [address] Care Team Providers Care Cat Scanner Operator Name Role Phone Amanda Adame M.D. Primary Care Provider João Woodward Jr Results Component Value Reference Range Notes Pathology Reviewed date:03/21/2025 08:46:31 AM Interpretation: Performing Lab:[facility], [address] [place] [address] Notes/Report: Reason For Referral No Information Problems Problem Type SNOMED Code ICD Code Onset Dates Problem Status W/U Status Risk Notes Problem Iron deficiency anemia (44846875) Iron deficiency anemia (D50.9) Active confirmed Problem Gastritis (2041193) Gastritis (K29.70) Active confirmed Encounters Encounter Location Date Provider Diagnosis [facility] Inpatient [address] [place] [phone] 03/06/2025 João Leon Jr [facility] [address] [place] [phone] 03/21/2025 João Leon Jr Plan Of Treatment Next Appt Details Provider Name:João yañez Jr, 07/26/2025 02:15:00 PM, [address] [facility], [address], [place], [address], Insurance Providers Payer Name Payer Address Payer Phone Subscriber Number Group Number Insured Name Patient Relationship to Insured Coverage Start Date Coverage End Date [facility] [address] Attn Claims CARLOS Varma [id number] JP MORGAN Self - patient is the insured
--- OUTSIDE RECORDS SUMMARY | 2025-06-03 08:02 | XMS_ITS | Encounter Summary ---
Author Organization [employer] Address [address] [facility] 7t [place] [address] Care Team Providers Care Project Archivist Name Role Phone Amanda Watkins MD Primary Care Provide r Hiro Ram WASHING MACHINE OPERATOR Unavailable Unavailable Raad Arias PharmD Unavailable [phone] Reason for Visit * Reason Comments Med Refill Encounter Details Date Type Department Care Team (Late st Contact Info) Description 02/11/2024 Refill [facility] MEDICINE [address] [place] [address] Amanda Watkins MD [address] [place], [place] [phone] Type 2 diabetes mellitus with other specified complication, unspecified whether exterminator termite insulin use ([facility]) Social History Tobacco Use Types [...] Info) Description 06/08/2025 2:00 PM EDT Telemedicine [facility] MEDICINE [address] [place] [address] Kayley Alanis RN 07/09/2025 3:30 PM EST Office Visit [facility] [address] [place] [address] Amanda Watkins MD [address] [place] [address] documented as of this encounter Visit Diagnoses Diagnosis Type 2 diabetes mellitus with other specified complication, unspecified whether skilled nursing insulin use (HCC) documented in this encounter Additional Health Concerns Assessment Noted Time PHQ-9 Depression Total Score: 10 024 3:23 PM EDT documented as of this encounter Care Teams Project Archivist Relationship Specialty Start Date End Date Amanda Watkins MD [address] [place] [address] PCP - General Family Medicine 04/07/19 Hiro Ram FNP [address] [place] [address] Nurse Practitioner Family Medicine 07/06/23 Raad Arias, PharmD [address] [place] [address] [place] [address] Pharmacist Internal Medicine 10/19/24 [facility] 07/03/22 08/16/24 Ja A 08/10/24 03/12/25 [facility] 03/08/25 documented as of this encounter
--- OUTSIDE RECORDS SUMMARY | 2025-06-03 08:02 | XMS_ITS | Data Portability ---
Author Organization [facility], Main Office Address [address] [facility] [address] [place] [address] Care Team Providers Care Necktie Stitcher Name Role Phone EUGENIA FLOWER - 2ND [...] 1.27 wbc 6.8 hgn 9.7 hct 31.1 [id number] Not available 04/18/2024 13:49:59 04/19/2024 04/19/202404/05 na 139 k 5 cre 1.27 wbc 6.8 hgn 9.7 hct 31.1 this COMMERCIAL REPORTER spent >30 minutes with assessment, dx, referral, [...] Address Organization Details Recorded Time Depressive disorder 27617944 Active 2023 HOLDEN LAURENT [address], [address], [place], [address], [facility] 4 12:24:02 Atrial fibrillation 37589659 Active 2023 HOLDEN LAURENT [address], [address], [place], [address], [facility] 4 12:24:20 Obstructive sleep apnea syndrome 69430205 Active 2023 HOLD[address]NT [address], [address], [place], [address], [facility] 4 12:24:31 Asthma 158046475 Active 2023 HOLDEN LAURENT [address], [address], [place], [address], [facility] 4 12:24:36 Hypertensive disorder 27501962 Active 2023 HOLDEN LAURENT [address], [address], [place], [address], [facility] 4 12:24:41 Hyperlipidemia 05922360 Active 2023 HOLDEN LAURENT [address], [address], [place], [address], [facility] 4 12:24:47 Retention of urine 525169501 Active 2023 HOLDEN LAURENT [address], [address], [place], [address], [facility] 4 12:24:53 Opioid dependence 89092787 Active 2023 HOLDEN LAURENT [address], [address], [place], [address], [facility] 4 12:25:08 Diabetes mellitus 40021587 Active 2023 HOLDEN LAURENT [address], [address], [place], [address], [facility] 4 12:25:14 Congestive heart failure 20801738 Active 2023 HOLDEN LAURENT [address], [address], [place], [address], [facility] 4 12:25:21 Gastroesophage al reflux disease 052504914 Active 2023 HOLDEN LAURENT [address], [address], [place], [address], [facility] 4 12:25:30 Hypothyroidism 16675239 Active 2023 HOLDEN LAURENT [address], [address], [place], [address], [facility] 4 12:25:37 Cellulitis 433664406 Active 2023 HOLDEN LAURENT [address], [address], [place], [address], [facility] 4 12:26:22 Arterial insufficiency 369183022 Active 2023 HOLDEN LAURENT [address], [address], [place], [address], [facility] 4 12:26:37 Problem Notes None recorded. Medical Equipment None Reported. Allergies Allergen ID Allergen Name Allergen Category Reaction Reaction Severity Criticality Documentation Date Start Date Code Code System Note Provider Name and Address Organization Details Recorded Time 95834 codeine medicatio n Not available Not available Not available 04/08/2024 2670 RxNorm HOLDEN LAURENT [address], [place], [address], [facility] 4 12:38:31 Medications Name Sig Start Date [...] Updated DateTime 4 152.4 cm 48.5 kg/m2 735101. 27 g 53 /min 18 /min 98.6 [degF] 98 % 98 % 149/77 mm[Hg] Genny Aguilar MD [address] [facility], [facility], [place], [address], [facility] 4 21:34:16 Date Recorded Body height Heart rate Respiratory rate Body temperature Oxygen saturation Oxygen saturation in Arterial blood by Pulse oximetry Systolic And Diastolic Provider Name and Address Organization Details Last Updated DateTime 4 152.4 cm 54 /min 18 /min 98.1 [degF] 96 % 96 % 175/90 mm[Hg] IBETH PRICE NP [address] [facility], [address], [place], [address], [facility] 4 13:49:23 Date Recorded Body height Body mass index (BMI) Body weight Heart rate Respiratory rate Body temperature Oxygen saturation Oxygen saturation in Arterial blood by Pulse oximetry Systolic And Diastolic Provider Name and Address Organization Details Last Updated DateTime 4 152.4 cm 48.4 kg/m2 813617. 91 g 68 /min 18 /min 98.1 [degF] 96 % 96 % 132/72 mm[Hg] Raiza Madsen NP [address] [facility], [facility], [place], [address], [employer] 4 08:19:33 Social History Question Answer Notes LastModified by Organizat ion Details LastModified Time Tobacco Smoking Status Never Smoker Genny Aguilar MD [address] [facility], [facility], [place], [address], [employer] 04/11/2024 21:50:08 Do You Have An Advance Directive? Yes Information not available 04/11/2024 What Is Your Code Status? Full Code Information not available 04/11/2024 Where Do You Live? Apartment With Sister, Elevator Access. Information not available 04/11/2024 Legal Guardian? No Information not available 04/11/2024 Do You Have A Medical Power Of Conservation Planner? Yes Information not available 04/11/2024 What Was [...] ICD10 Code Diagnosis IMO Codes Diagnosis Note [id number] HOLDEN LAURENT [address] [address] 04/08/2024 12:12:39 04/13/2024 15:07:34 Cellulitis 686925789 L03.90 completed antbx for LE cellulitis in ED = did not feel it was recurrence of an acute infectionh /o chronic lymphedema -monitor ss of infection- bacitracin topical to BL legs daily-oxyc odone 5 mg q6h prn for pain Arterial insufficiency 178523094 I77.1 -f/up with vascular per recs needs to be arranged-s ee above Retention of urine 93742 4002 R33.9 unable to urinate since coming from [facility] to facility-w ill order PVR, SC for PVR >400 cc Atrial fibrillation 4943 6004 I48.91 carrying dx-amiodar one 200 mg daily-eliq uis 5 mg bid-monito r HR and bleeding Hypertensive disorder 38 481333 I10 carrying dx-amlodip ine 10 mg daily-leonardo tor BP Depressive disorder 3548 9007 F32.A carrying dx-duloxet ine 20 mg daily-paxi l 40 mg daily-leonardo tor mood and affect-psy ch eval prn Congestive heart failure 60450226 I50.9 carrying dxnot on diuretics- metoprolol 50 mg daily-farx iga 10 mg daily-leonardo tor fluid status closely-da sacha weights Diabetes mellitus 070840 09 E11.9 carrying dxjardianc e was given once in hospital, dont see it on her home med list or dc med list = asked nursing to ask dtr-lantus 65 units HS-monitor accuchecks TID Hypothyroidism 52334126 E03.9 carrying dx-synthro id 50 mcg po in am-TSH/T4 prn Hyperlipidemia 76937289 E78.5 carrying dx-lipitor 80 mg daily Gastroesop hageal reflux disease 087795693 K21.9 carrying dx-omepraz ole 40 mg po daily Obstructiv e sleep apnea syndrome 37042712 G47.33 intermitte nt CPAP use at home Opioid dependence 501340 00 F11.20 -monitor needed support in community- on oxycodone for leg pain = monitor usage and wean as tolerated Dermal mycosis 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 Arterial insufficiency 068365426 I77.1 F/U with vascular as planned.Mo rubén ramos n. Retention of urine 62235 4002 R33.8 Improved, continue to monitor. Atrial fibrillation 4943 6004 I48.0 Rate in good control on amiodarone 200 mg daily and metoprolol 50 mg daily.Cont inue eliquis 5 mg BID for AC.Monitor HR and bleeding risk. Hypertensive disorder 38 084515 I10 Fair control on amlodipine 10 mg daily and metoprolol 50 mg daily.Leonardo tor BP and labs. Depressive disorder 3548 9007 F33.8 Mood good tonight, aside form wanting to go home.Nicanor nue duloxetine 20 mg daily, paroxetine 40 mg daily, trazadone 50 mg at bedtime, and melatonin 5 mg at bedtime.Mo nitor moodPsych consult prn Congestive heart failure 62382899 I50.32 Appears euvolemic. Continue meds as above and Farxiga 10 mg daily.Leonardo tor resp. status, fluid status, wts and labs. Diabetes mellitus 651348 09 E11.9 In good control since here.Nicanor nue lantus 65 units daily and Farxiga 10 mg daily.Leonardo tor accuchecks TID Hypothyroidism 39443733 E03.8 Continue levothyrox ine 50 mcg dailyMonit or TSH prn. Hyperlipidemia 10406860 E78.49 Continue atorvastat in 80 mg dailyMonit or labs as outpt. Gastroesop hageal reflux disease 359009913 K21.9 No current sxs.Contin ue omeprazole 40 mg dailyMonit or GI sxs. Obstructiv e sleep apnea syndrome 49845751 G47.33 Continue CPAP with sleep.F/U prn. Opioid dependence 923186 00 F11.20 On oxycodone chronicall y.Monitor use and f/u with pcp as planned. Candidiasis of vagina 72 221187 B37.31 Not improving with nystatin.W ill start diflucan 150 mg x 1 and repeat in 1 wk. [id number] IBETH PRICE NP [address] [address] 04/18/2024 08:27:20 04/19/2024 14:02:05 Cellulitis 864365917 L03.116 Improved. now with healing woundsdiph enhydramin [...] BMP x 1 in am Arterial insufficiency 493580347 I77.1 F/U with vascular as planned.Anthony sotelo.Refer to [facility] for outpt. mgmt. upon d/c. Retention of urine 28813 4002 R33.8 Improved, continue to monitor. Atrial fibrillation 4943 6004 I48.0 Rate in good control on amiodarone 200 mg daily and metoprolol 50 mg daily.Cont inue eliquis 5 mg BID for AC.Monitor HR and bleeding risk. Hypertensive disorder 38 901763 I10 Fair control on amlodipine 10 mg [...] [place] moodPsych consult prn Congestive heart failure 55304062 I50.32 Appears euvolemic. Continue meds as above and Farxiga 10 mg daily.Leonardo tor resp. status, fluid status, wts and labs. Diabetes mellitus 856198 09 E11.9 In fair control since here.Nicanor nue lantus 65 units daily and Farxiga 10 mg daily.Leonardo tor accuchecks TID Hypothyroidism 34338012 E03.8 Continue levothyrox ine 50 mcg dailyMonit or TSH prn. Hyperlipidemia 47673421 E78.49 Continue atorvastat in 80 mg dailyMonit or labs as outpt. Gastroesop hageal reflux disease 099413885 K21.9 No current sxs.Contin ue omeprazole 40 mg dailyMonit or GI sxs. Obstructiv e sleep apnea syndrome 39660458 G47.33 Continue CPAP with sleep.F/U prn. Opioid dependence 371039 00 F11.20 On oxycodone chronicall y.Monitor use and f/u with pcp as planned. Candidiasis of vagina 72 435165 B37.31 Not improving with nystatin.D iflucan 150 mg x 1 given, to repeat in 1 wk. [id number] [facility] [place] [address] 04/19/2024 08:18:47 04/20/2024 13:31:13 Cellulitis 711358589 L03.116 resolved with abx in hospitalno w [...] pcp, and wound clinica oupt Arterial insufficiency 587420866 I77.1 F/U with vascular as planned.Re marichuy to [facility] for outpt. mgmt. upon d/c. (referral given)vna services outpt with pcp to follow outpt with wound clinic Retention of urine 87977 4002 R33.8 Improved, continue to monitor. Atrial fibrillation 4943 6004 I48.0 Rate in good control on amiodarone 200 mg daily and metoprolol 50 mg daily.Cont inue eliquis 5 mg BID for AC.Monitor outpt with pcp and cardiology outpt Hypertensive disorder 38 967103 I10 hospital dc'd losartan 50 mg po [...] outptPsych consult prn outpt Congestive heart failure 44500836 I50.32 Appears euvolemic. Continue meds as above and Farxiga 10 mg daily.Leonardo tor outpt with pcp Diabetes mellitus 216489 09 E11.9 In fair control since here. 100-200s? if higher 200s related to infectiona lso glipizide and metformin was dc in hosp for ckd, monitor for need to add with pcp outptConti nuelantus 65 units dailyFarxi ga 10 mg daily.Leonardo tor accuchecks TID at home and bring log to pcp on 04/26/24. Hypothyroidism 56806645 E03.8 Continuele vothyroxin e 50 mcg dailyMonit or TSH prn outpt withpcp Hyperlipidemia 54815205 E78.49 Continue atorvastat in 80 mg dailyMonit or labs as outpt. Gastroesop hageal reflux disease 766289839 K21.9 No current sxs.Contin ueomeprazo le 40 mg dailyMonit or GI sxs. outpt with pcp Obstructiv e sleep apnea syndrome 33106313 G47.33 Continue CPAP with sleep.F/U prn outpt prn Opioid dependence 515969 00 F11.20 On oxycodone chronicall y.will cont on home dose and since on chronicall y will not send with any additional oxycodoneM onitor use and f/u with pcp as planned outpt Candidiasis of vagina 72 746656 B37.31 Not improving with nystatin.D iflucan 150 mg x 1 given at rehabmonit or with pcp outpt Chronic ki dney disease 085724849 N18.9 ckd per hosp paperwork with meds adjusted:g lipizide, losartan, furosemide , and metformin were dc'dlabs as [facility] and need to adjust outpt with pcp Pain in le ft lower limb 248787728 M79.605 addendumpt was ready for discharge and now reporting left lower leg pain and states she can't put weight on itwhen attempting to get dressed for homefamily refuses therapy eval and xray here,famil y requests 911 call, and emergent evaluation at [facility] Health Concerns Section Related Observation LastModified by Organization Detai ls LastModified Time None Recorded Concern Status LastModified by Organization Details LastModified Time None Recorded Advance Directives Directive Y: Payers Insurance Date Sequence Insurance Name Policy Number Policy Meza Covered Member ID Meza Member ID Guarantor Name 04/19/2024 1 FORMERLY [facility] - DOS ON OR AFTER 2022 - MEDICARE ADVANTAGE [place] (MEDICARE REPLACEMENT/ADV ANTAGE - PPO) Mary Lou Cisneros [id number] Mary Lou Cisneros Notes Date Note Type Note Provider Name and Address Organization Details Recorded Time 04/08/2024 text/html Patient is a 73 yo female being seen for initial intake visit. She presented to [facility] for eval of left leg [...] and was recommended for transfer to [facility] for continued care and rehab. On arrival from hospital patient reporting to nursing that she hasnt urinated. No report of this occurring while she was at [facility] and she did not have a [...] opiate dependence, hld, htn, DM REBECA SOTOMAYOR, COMMERCIAL REPORTER-C [address] [place] [address], [address], [place], [address], [facility] 04/08/2024 13:05:26 04/11/2024 text/html This is a 73 yo woman who is here for rehab after an ED visit for left leg pain after recovery from recent cellulitis.[facility] txed with [...] for most activities.I see her with a wallisian speaking staff member.She is in bed, wakes [...] OA, OP, and fibromyalgia. Genny Aguilar MD [address] [place] [address], [address], [place], [address], [facility] 04/14/2024 20:04:50 04/18/2024 text/html This is a 73 yo woman who is here for rehab after an ED visit for left leg pain after recovery from recent cellulitis.[facility], txed with [...] OP, and fibromyalgia. IBETH PRICE NP [address] [facility], [address], [place], [address], [facility] 04/18/2024 14:21:33 04/19/2024 text/html This is a [...] note per records:[facility], txed with [...] outpt with pcp She was transferred to [facility] for rehab on 04/08 and working with rehab showing improvement and felt she is stable to discharge home. Vitals stable here and BP labile, last at 132/72 this am. While at [facility] she was seen by the wound team [...] 2024. She will be picked up by [facility] @ 1:00 PM. A referral has been made to [facility] for ongoing skilled services. She will be [...] 2024. She will be picked up by [facility] @ 1:00 PM. A referral has been made to [facility] for ongoing skilled services. She will be [...] she goes home from ER. discussed with information technology administrator at facility Raiza Madsen NP [address] [facility], [address], [place], [address], [facility] 04/19/2024 13:13:44 OBGyn Episode No OBEpisode recorded.
--- OUTSIDE RECORDS SUMMARY | 2025-06-03 08:02 | XMS_ITS | Encounter Summary ---
Author Organization [employer] Address 75 [facility] 7t [place] [address] Care Team Providers Care Mixer Runner Name Role Phone Amanda Watkins MD Primary Care Provide r Hiro Ram NEUROSCIENCE DIRECTOR NA Unavailable Unavailable Raad Arias PharmD Unavailable [phone] Reason for Visit * Reason Comments Med Refill Encounter Details Date Type Department Care Team (Late st Contact Info) Description 10/16/2024 Refill [facility] [address] [place] [address] Amanda Watkins MD [address] [place] [address] Chronic bilateral low back pain with bilateral [...] Info) Description 06/08/2025 2:00 PM EDT Telemedicine [facility] MEDICINE [address] [place] [phone] Kayley Alanis RN 07/09/2025 3:30 PM EST Office Visit [facility] [address] [place] [phone] Amanda Watkins MD [address] [place] [phone] documented as of this encounter Visit Diagnoses Diagnosis Chronic bilateral low back pain with bilateral sciatica documented in this encounter Additional Health Concerns Assessment Noted Time PHQ-9 Depression Total Score: 0 09/01/19 25 1:18 PM EST documented as of this encounter Care Teams Mixer Runner Relationship Specialty Start Date End Date Amanda Watkins MD [address] [place] [phone] PCP - General Family Medicine 04/07/19 Hiro Ram FNP [address] [place] [phone] Nurse Practitioner Family Medicine 07/06/23 Raad Arias, PharmD [address] [place] [address] CORINNE Peres [phone] Pharmacist Internal Medicine 10/19/24 Ja [facility] 08/10/24 03/12/25 [facility] 03/08/25 documented as of this encounter
--- OUTSIDE RECORDS SUMMARY | 2025-06-03 08:03 | XMS_ITS | Encounter Summary ---
Author Organization [employer] Address [address] [facility] 7t [place] [address] Care Team Providers Care Behavioral Health Clinician Name Role Phone Amanda Watkins MD Primary Care Provide r Hiro Ram UNIVERSAL GRINDER TOOL Unavailable Unavailable Raad Arias PharmD Unavailable [phone] Reason for Visit * Reason Onset Date Comments Durable Medical Equipment 07/26/2024 Encounter Details Date Type Department Care Team (Late st Contact Info) Description 07/26/2024 Telephone [facility] MEDICINE [address] [place] [address] Amanda Watkins MD [address] [place] [address] Durable Medical Equipment Social History Tobacco Use [...] Info) Description 06/08/2025 2:00 PM EDT Telemedicine [facility] MED[facility] [address] [place] [phone] Kayley Alanis RN 07/09/2025 3:30 PM EST Office Visit [facility] [address] [place] [phone] Amanda Watkins MD [address] [place] [phone] documented as of this encounter Visit Diagnoses Not on filedocumented in this encounter Additional Health Concerns Assessment Noted Time PHQ-9 Depression Total Score: 10 024 3:23 PM EDT documented as of this encounter Care Teams Behavioral Health Clinician Relationship Specialty Start Date End Date Amanda Watkins MD [address] [place] [address] PCP - General Family Medicine 04/07/19 Hiro Ram FNP [address] [place] [address] Nurse Practitioner Family Medicine 07/06/23 Raad Arias, TheaD [address] [place] [phone] Pharmacist Internal Medicine 10/19/24 [facility] 07/03/22 08/16/24 Ja [facility] 08/10/24 03/12/25 [facility] 03/08/25 documented as of this encounter
--- OUTSIDE RECORDS SUMMARY | 2025-06-03 08:03 | XMS_ITS | Encounter Summary ---
Author Organization [employer] Address 75 [facility] 7t [place] [address] Care Team Providers Care Abatement Worker Name Role Phone Amanda Watkins MD Primary Care Provide r Hiro Ram ANGLESMITH HELPER Unavailable Unavailable Raad Arias PharmD Unavailable [phone] Reason for Visit * Reason Comments Med Refill Encounter Details Date Type Department Care Team (Late st Contact Info) Description 05/28/2025 Refill [facility] MED[facility] [address] [place] [address] Amanda Watkins MD [address] [place], [place] [phone] Chronic bilateral low back pain with bilateral [...] Info) Description 06/08/2025 2:00 PM EDT Telemedicine [facility] [address] [place] [phone] Kayley Alanis RN 07/09/2025 3:30 PM EST Office Visit [facility] [address] [place] [phone] Amanad Watkins MD [address] [place] [phone] documented as of this encounter Visit Diagnoses Diagnosis Chronic bilateral low back pain with bilateral sciatica documented in this encounter Additional Health Concerns Assessment Noted Time PHQ-9 Depression Total Score: 14 025 2:41 PM EDT documented as of this encounter Care Teams Abatement Worker Relationship Specialty Start Date End Date Amanda Watkins MD [address] [place] [phone] PCP - General Family Medicine 04/07/19 Hiro Ram FNP [address] [place] [address] Nurse Practitioner Family Medicine 07/06/23 Raad Arias, PharmD [address] [place] [address] Pharmacist Internal Medicine 10/19/24 [facility] 03/08/25 documented as of this encounter
--- OUTSIDE RECORDS SUMMARY | 2025-06-03 08:03 | XMS_ITS | Clinical Summary ---
Author Organization [employer] Address [address] [facility] [address] [place] [address] Care Team Providers Care Truck Caterer Name Role Phone Amanda Watkins MD Primary Care Provide r Hiro Ram PRIEST Unavailable Unavailable Raad Arias PharmD Unavailable Allergies [...] 2024 Active Blood Glucose Monitoring Suppl (FreeStyle [place] Lite) w/Device kitIndications:Ty pe 2 diabetes mellitus [...] hyperglycemia, with long-term current use of insulin ([facility]) Inject 64 units under the skin daily 18 mL 5 Active pen needle 32G x 4 mm miscIndications:T ype 2 diabetes mellitus with hyperglycemia, with long-term current use of insulin ([facility]) Use daily with insulin 100 each 3 025 2025 Active traZODone (Desyrel) 150 MG tabletIndications :Recurrent major depressive episodes, mild (CMS/HCC) Take 1 tablet (150 mg) by mouth at bedtime. 90 tablet 2 025 Active TRUEplus Lancets 33G miscIndications:T ype 2 diabetes mellitus with hyperglycemia, with long-term current use of insulin ([facility]) USE DIRECTED TO TEST BLOOD SUGAR THREE [...] Once per day. 025 Active Continuous Glucose Net Developer Consultant (FreeStyle Mickey 3 [place]) deviceIndications :Type 2 diabetes mellitus with diabetic autonomic neuropathy, with long-term current use of insulin ([facility]) 1 each Once per day. Use as directed for CGM 1 each 025 Active Continuous Glucose Sensor (FreeStyle Mickey 3 Plus Sensor) miscIndications:T ype 2 diabetes mellitus with diabetic autonomic neuropathy, with long-term current use of insulin ([facility]) 1 each every 15 days. Apply 1 [...] hyperglycemia, with long-term current use of insulin ([facility]) Inject 7.5 mg under the skin 1 [...] MOUTH EVERY MORNING 30 capsule 1 Active oxyCODONE-acetami nophen (Percocet) 5-325 MG tabletIndications :Chronic bilateral low back pain with bilateral sciatica Take 1 tablet by mouth every 6 (six) hours if needed for severe pain for up to 5 days. 15 tablet 025 2024 Active atorvastatin (Lipitor) 80 MG tablet TAKE 1 TABLET BY MOUTH EVERY EVENING 90 tablet 1 025 2024 Discontinued torsemide (Demadex) 20 MG tablet TAKE 1 TABLET BY MOUTH EVERY MORNING 30 tablet 3 025 2024 Discontinued gabapentin (Neurontin) 300 MG capsuleIndication s:Type 2 diabetes mellitus with diabetic autonomic neuropathy, with long-term current use of insulin ([facility]) Take 1 capsule (300 mg) by mouth [...] Assessment & Plan (09/14/2024 6:46 PM EST): Chip Tester referral done today I advised not to [...] for patient Stage 3b chronic kidney disease ([facility]) 2023 Arthritis 04/24/2024 Bronchitis 04/24/2024 Obesity 04/24/2024 Atrial fibrillation (CMS/HCC) 04/08/2024 Assessment & Plan (02/15/2025 10:55 AM [...] medications every day I advised low-sodium diet Chip Tester referral done today I advised to monitor [...] retiring, patient will be transferred to new [facility] psychiatric provider. Patient is aware that appointments will be via televisit. Any issues or concerns contact [facility]. All her questions were answered [...] advise low-sodium diet I advised weight reduction Chip Tester referral done Assessment & Plan (12/06/2023 2:12 [...] and excersise -patient will be refer to charge poster - Continue current medications, I can not [...] organization. Date Type Department Care Team Description 05/31/2025 Telephone [facility] MEDICINE [address] [place] [phone] Kayley Alanis, RN Schedule Tele MANOMETER TECHNICIAN RV 05/30/2025 Orders Only GENERIC EXTERNAL DATA DEPARTMENT Provider, Generic External Data 05/29/2025 Orders Only GENERIC EXTERNAL DATA DEPARTMENT Provider, Generic External Data 05/29/2025 Telephone [facility] MEDICINE [address] [place] [address] [phone] Amanda Watkins MD Med Refill 05/28/2025 Refill [facility] MEDICINE [address] [place] [address] [phone] Amanda Watkins MD Chronic bilateral low back pain with bilateral sciatica 05/25/2025 Refill [facility] MEDICINE [address] [place] [address] Amanda Watkins MD Chronic bilateral low back pain with bilateral sciatica (Primary Dx) 05/24/2025 Refill [facility] MEDICINE [address] [place] [address] Amanda Watkins MD 05/16/2025 Refill [facility] MEDICINE [address] [place] [address] [phone] Amanda Watkins MD Type 2 diabetes mellitus with diabetic autonomic neuropathy, with long-term current use of insulin ([facility]); Slow transit constipation 05/08/2025 10:15 AM EDT Office Visit [facility] MEDICINE [address] [place] [phone] Amanda Watkins MD Fibromyalgia (Primary Dx); Degenerative arthritis of thumb, right; Chronic pain of both shoulders; Type 2 diabetes mellitus with hyperglycemia, with long-term current use of insulin ([facility]) 05/08/2025 Travel 05/07/2025 Telephone [facility] MEDICINE [address] [place] [phone] Amanda Watkins MD 05/07/2025 Telephone [facility] MEDICINE [address] [place] [address] [phone] Amanda Watkins MD Chart Prep 05/07/2025 Refill [facility] MEDICINE [address] [place] [phone] Amanda Watkins MD 05/04/2025 Telephone [facility] MEDICINE [address] [place] [address] [phone] Amanda Watkins MD Medication Question 04/30/[address] [phone] Amanda Watkins MD Appointment Request 04/23/2025 Patient Outreach [facility] [address] [place] [address] Amanda Watkins MD Pre-visit Planning (HDF scheduled. ) 04/23/2025 Refill [facility] MEDICINE [address] [place] [phone] Amanda Watkins MD 04/19/2025 Telephone [facility] [address] [place] [address] Amanda Watkins MD 04/17/2025 Orders Only GENERIC EXTERNAL DATA DEPARTMENT Provider, Generic External Data 04/17/[address] [phone] Amanda Watkins MD Nurse Triage 04/16/2025 Travel 04/13/2025 Refill [facility] MEDICINE [address] [place] [address] Kayley Alanis, natural foods clerk bilateral low back pain with bilateral sciatica (Primary Dx) 04/11/2025 Refill [facility] MEDICINE [address] [place] [address] Amanda Watkins MD Type 2 diabetes mellitus with hyperglycemia (CMS/HCC) 04/08/2025 Refill [facility] MEDICINE [address] [place] [address] Amanda Watkins MD 04/02/2025 Refill [facility] MEDICINE [address] [place] [address] Amanda Watkins MD Chronic bilateral low back pain with bilateral sciatica 03/29/2025 2:00 PM EDT Office Visit [facility] MEDICINE [address] [place] [address] [phone] Amanda Watkins MD Seborrheic dermatitis (Primary Dx); Type 2 diabetes mellitus with diabetic autonomic neuropathy, with long-term current use of insulin (CMS/HCC); Anemia, unspecified type; Chronic gastritis, presence of bleeding unspecified, unspecified gastritis type; Primary osteoarthritis, right shoulder; Slow transit constipation; Primary insomnia; Cellulitis of right lower extremity 03/29/2025 Travel 03/28/2025 Refill [facility] MEDICINE [address] [place] [address] Sia Leon, PharmD 03/27/2025 Telephone [facility] [address] [place], [place] [phone] Amanda Watkins MD Chart Prep 03/20/2025 Orders Only [facility] MEDICINE [address] [place] [address] Amanda Watkins MD Type 2 diabetes mellitus with diabetic autonomic neuropathy, with long-term current use of insulin (CMS/HCC) (Primary Dx) 03/20/2025 Telephone [facility] MEDICINE [address] [place] [address] Lynne Lazaro, DELINQUENT TAX COLLECTION ASSISTANT Follow-up 03/20/2025 Telephone [facility] MEDICINE [address] [place] [address] Amanda Watkins MD Referral 03/20/2025 Telephone [facility] MEDICINE [address] [place] [address] Amanda Watkins MD Nurse Triage 03/16/2025 Refill [facility]INE [address] [place] [address] Amanda Watkins MD 03/14/2025 Telephone [facility] MEDICINE [address] [place] [phone] Amanda Watkins MD FYI 03/11/2025 Orders Only GENERIC EXTERNAL DATA DEPARTMENT Provider, Generic External Data 03/09/2025 Orders Only GENERIC EXTERNAL DATA DEPARTMENT Provider, Generic External Data 03/08/2025 Patient Outreach [facility] [address] [place] [address] Amanda Watkins MD Transition Of Care (Tcm) (HDF scheduled) 03/08/2025 Refill [facility] MEDICINE [address], [place] [phone] Amanda Watkins MD Atrial fibrillation, unspecified type ([facility]) 03/03/2025 Orders Only GENERIC EXTERNAL DATA DEPARTMENT Provider, Generic External Data from Last 3 Months Immunizations Immunization Administration [...] Info) Description 06/08/2025 2:00 PM EDT Telemedicine [facility] MEDICINE [address] [place] [phone] Kayley Alanis RN 07/09/2025 3:30 PM EST Office Visit [facility] MEDICINE [address] [place] [phone] Amanda Watkins MD [address] [place] [address] Health Maintenance Due Date Last Done Comments [...] - 1-dose 75+ series) 2024 COVID-19 Vaccine (3 - 2024- season) 2025 07/24/2021, 10/03/2020 Influenza Vaccine (#1) 2025 4, 07/08/2018, 09/30/2017, Additional history exists Diabetes: Hemoglobin [...] Associated Diagnosis Comments GLUCOSE, WHOLE BLOOD Routine 05/30/2025 7:39 AM EDT URINALYSIS, COMPLETE, WITH REFLEX TO CULTURE Routine 05/30/2025 5:57 AM EDT DRUG MONITOR, PANEL 1, SCREEN, URINE Routine 05/30/2025 5:56 AM EDT GLUCOSE, WHOLE BLOOD Routine 05/30/2025 2:57 AM EDT VENOUS BLOOD GAS Routine 05/30/2025 12:1 9 AM EDT ACETAMINOPHEN LEVEL Routine 05/30/2025 1 2:14 AM EDT SALICYLATE Routine 05/30/2025 12:14 AM EDT GLUCOSE, WHOLE BLOOD Routine 05/29/2025 11:59 PM EDT POCT GLYCATED HEMOGLOBIN, TOTAL Routine 05/08/2025 10:52 AM EDT Type 2 diabetes mellitus with hyperglycemia, with long-term current use of insulin ([facility]) POCT GLUCOSE Routine 05/08/2025 10:52 AM EDT Type 2 diabetes mellitus with hyperglycemia, with long-term current use of insulin (CMS/[facility]) CT SHOULDER WO CONTRAST RIGHT Routine 04/17/2025 9:23 PM EDT LACTIC ACID Routine 04/17/2025 10:07 AM EDT POCT GLYCATED HEMOGLOBIN, TOTAL Routine 03/29/2025 2:06 PM EDT Type 2 diabetes mellitus with diabetic autonomic neuropathy, with long-term current use of insulin ([facility]) POCT GLUCOSE Routine 03/29/2025 2:04 PM EDT Type 2 diabetes mellitus with diabetic autonomic neuropathy, with long-term current use of insulin ([facility]) BASIC METABOLIC PANEL Routine 03/11/2025 8:31 AM [...] Relevant to Health Maintenance Results * (ABNORMAL) Glucose, Whole Blood (05/30/2025 7:39 AM EDT) Only the most recent of3 resultswithin the time period is included. Glucose, Whole Blood 285(H) 60 - 115 mg/dL [facility] Comment:METER #: [id number] 05/30/2025 7:39 AM EDT 05/30/2025 7:43 AM EDT us Generic External Data Provider LAB BLOOD ORDERAB LES Final Result [facility] [address] [place] [phone] * (ABNORMAL) Urinalysis, Complete, with Reflex to Culture (05/30/2025 5:57 AM EDT) Color Urine Yellow [facility] Appearance Urine Clear [facility] PH 8.0 5.0 - 9.0 [facility] Glucose Urine UA >=1000(A) Negative mg/dL [facility] Urine Blood Negative Negative [facility] Specific [place]ba - Urine 1.015 1.005 - 1.025 [facility] Urine Protein Negative Neg-Trace mg/dL [facility] Urine Ketones Negative Negative mg/dL [facility] Nitrite Urine Negative Negative [facility] Leukocyte Esterase Urine Negative Negative [facility] RBC Urine 0-2 0 - 2 /HPF [facility] Urine WBC 0-5 0 - 5 /HPF [facility] Urine Squamous Epithelial Cell 0-2 0 - 2 /HPF [facility] Urine Bacteria None Seen None Seen [facility] Hyaline Casts, Urine 0-2 0 - 2 /LPF [facility] 05/30/2025 5:57 AM EDT 05/30/2025 6:04 AM EDT Narrative [facility] - 05/30/2025 6:36 AM EDT [id number], Clean Catch us Generic External Data Provider LAB URINE ORDERAB LES Final Result [facility] [address] [place] [phone] * (ABNORMAL) Drug Monitoring, Panel 1, Screen, Urine (05/30/2025 5:56 AM EDT) Opiate Screen Urine Not Detected Not Detect [facility] Comment:Opiate cut-off is 30 0 ng/mL.Positive results are unconfirmed and should not be used fornon-medical purposes. Barbiturates, Urine Not Detected Not Detect [facility] Comment:Barbiturate cut-off is 200 ng/mL.Positive results are unconfirmed and should not be used fornon-medical purposes. Phencyclidine Screen Urine Not Detected Not Detect [facility] Comment:Phencyclidine cut-of f is 25 ng/mL.Positive results are unconfirmed and should not be used fornon-medical purposes. Amphetamine Screen Urine Not Detected Not Detect [facility] Comment:Amphetamine cut-off is 1000 ng/mL.Positive results are unconfirmed and should not be used fornon-medical purposes. Benzodiazepines Screen Urine Not Detected Not Detect [facility] Comment:Benzodiazepine cut-o ff is 200 ng/mL.Positive results are unconfirmed and should not be used fornon-medical purposes. Cocaine Screen Urine Not Detected Not Detect [facility] Comment:Cocaine cut-off is 3 00 ng/mL.Positive results are unconfirmed and should not be used fornon-medical purposes. Cannabinoid Screen Urine Not Detected Not Detect [facility] Comment:Cannabinoid cut-off is 50 ng/mL.Positive results are unconfirmed and should not be used fornon-medical purposes. Methadone Screen, Urine Not Detected Not Detect ng/mL [facility] Comment:Methadone cut-off is 300 ng/mL.Positive results are unconfirmed and should not be used fornon-medical purposes. FENTANYL URINE Not Detected Not Detect [facility] Comment:Fentanyl cut-off is 1 ng/mL.Positive results are unconfirmed and should not be used fornon-medical purposes. Oxycodone Urine Screen Positive(A) Not Detect ng/mL [facility] Comment:Oxycodone cut-off is 100 ng/mL.Positive results are unconfirmed and should not be used fornon-medical purposes. Buprenorphine Screen Not Detected Not Detect ng/mL [facility] Comment:Buprenorphine cut-of f is 5 ng/mL.Positive results are unconfirmed and should not be used fornon-medical purposes. 05/30/2025 5:56 AM EDT 05/30/2025 6:04 AM EDT us Generic External Data Provider LAB URINE ORDERAB LES Final Result Performing Organization Address City/State/[facility] Co de Phone Number [facility] [address] [place] [phone] * (ABNORMAL) VENOUS BLOOD GAS (05/30/2025 12:19 AM EDT) VBG pH 7.43 7.32 - 7.43 [facility] Comment:METER #: [id number] additional_comment: Cb tetreak VBG PCO2 55 mmHg [facility] Comment:METER #: [id number] additional_comment: Cb tetreak VBG PO2 98 mmHg [facility] Comment:METER #: [id number] additional_comment: Cb tetreak VBG Base Excess 11.6 mmol/L [facility] Comment:METER #: [id number] additional_comment: Cb tetreak VBG HCO3 37(H) 22 - 26 mmol/L [facility] Comment:METER #: [id number] additional_comment: Cb tetreak O2 Sat, Samuel 95.0 % [facility] Comment:METER #: [id number] additional_comment: Cb tetreak 05/30/2025 12:1 9 AM EDT 05/30/2025 12:26 AM EDT us Generic External Data Provider LAB BLOOD ORDERAB LES Final Result Performing Organization Address [facility] Co de Phone Number [facility] [address] [place] [phone] * Acetaminophen level (05/30/2025 12:14 AM EDT) Acetaminophen LAB <3 <30 mcg/mL [facility] 05/30/2025 12:1 4 AM EDT 05/30/2025 12:18 AM EDT Generic External Data Provider LAB BLOOD ORDERAB LES Final Result Performing Organization Address [facility] de Phone Number [facility] [address] [place] [phone] * (ABNORMAL) Salicylate (05/30/2025 12:14 AM EDT) Salicylate <5.0(L) 15 - 30 mg/dL [facility] 05/30/2025 12:1 4 AM EDT 05/30/2025 12:18 AM EDT Generic External Data Provider LAB BLOOD ORDERAB LES Final Result Performing Organization Address [facility] de Phone Number [facility] [address] [place] [phone] * (ABNORMAL) POCT Hgb A1c (05/08/2025 10:52 AM EDT) Only the most recent of2 resultswithin the time period is included. Hemoglobin A1C 9.8(A) 4.0 - 5.7 % QC Media Lot # [id number] Lot# Expiration Date [id number] Blood 05/08/2025 10:5 2 AM EDT Amanda Myers MD POINT OF CARE TEST EN TER/EDIT ORDERABLES Final Result * (ABNORMAL) POCT Glucose (05/08/2025 10:52 AM EDT) Only the most recent of2 resultswithin the time period is included. Glucose Blood, POC 407(A) 60 - 200 mg/dL QC Media Lot # [id number] Lot# Expiration Date Blood Capillary blood specimen / Unknown 05/08/2025 10:52 AM EDT Amanda Myers MD POINT OF CARE TEST EN TER/EDIT ORDERABLES Final Result * CT Shoulder w/o Contrast Right (04/17/2025 9:23 PM EDT) Anatomical Region Laterality Modality Upper Extremities, Shoulder Right Comp uted Tomography 04/17/2025 9:23 PM EDT Narrative 04/17/2025 9:25 PM EDT [place] [address] [address] Scan Report Signed with Tosin Patient: Mary Lou Godwin MR#: [id number] : 1950 Acct:[id number] Age/Sex: 74 / F ADM Date: 04/17/25 Loc: .ED Attending Dr: Ordering Physician: Kassy Barnard DO Date of Service: 04/17/25 Procedure(s): CT shoulder RT wo IV con Accession Number(s): [id number] cc: Amanda Watkins MD; Kassy Barnard DO Report Number: [id number]: Total DLP = 476.00 mGy-cm Reason for [...] RT MIN 2V - 03/11/25 08:[address]/IA/SR - CT SHOULDER RT WO IV CON [...] in OV> 04/17/252124 DD/ 22 TD/TT: 04/17/252122 Maid Housekeeper: Procedure Note Huan, Image - 04/17/[address] [place] [address] [address] Scan Report Signed with Addenda Patient: Mary Lou Godwin ZMR#: [id number] : 1950cct:[id number] Age/Sex: 74 / FADM Date: 04/17/25 Loc: HO.ED Attending Dr: Ordering Physician: Kassy Barnard DO Date of Service: 04/17/25 Procedure(s): CT shoulder RT wo IV con Accession Number(s): [id number] cc: Amanda Watkins MD; Kassy Barnard DO Report Number: [id number]: Total DLP = 476.00 mGy-cm Reason for [...] RT MIN 2V - 03/11/25 08:[address]/IA/SR - CT SHOULDER RT WO IV CON [...] in OV> 04/17/252124 DD/ 22 TD/TT: 04/17/252122 Maid Housekeeper: [facility] External Provider IMG CT PROCEDURES Edited Result - Final * Lactic Acid (04/17/2025 10:07 AM EDT) Lactic Acid 1.0 0.5 - 2.0 mmol/L [facility] 04/17/2025 10:0 7 AM EDT 04/17/2025 10:12 PM EDT us Generic External Data Provider LAB BLOOD ORDERAB LES Final Result [facility] [address] [place], [place] [phone] * (ABNORMAL) CBC auto differential (03/11/2025 8:31 AM EDT) Only the most recent of3 resultswithin the time period is included. White Blood Count 8.5 4.8 - 10.8 X10*3/uL [facility] Red Blood Count 3.71(L) 4.20 - 5.50 X10*6/uL [facility] Hemoglobin 8.4(L) 12.0 - 16.0 g/dl [facility] Hematocrit 28.3(L) 37.0 - 47.0 % [facility] Mean Corpuscular Volume 76.3(L) 80.0 - 98.0 fL [facility] Mean Corpuscular Hemoglobin 22.6(L) 27.0 - 33.0 pg [facility] Mean Corpuscular HGB Conc 29.7(L) 31.0 - 35.0 g/dl [facility] Red Cell Distribution Width 20.6(H) 11.0 - 16.0 % [facility] Platelet Count 348 160 - 400 X10*3/uL [facility] Mean Platelet Volume 9.2(L) 9.4 - 12.3 fL [facility] Neutrophils Percent Auto 74.2(H) 45 - 73 % [facility] Imm Gran Pct Auto 1.2(H) 0.0 - 0.4 % [facility] Lymphocytes Percent Auto 10.9(L) 20 - 40 % [facility] Monocytes Percent Auto 11.3(H) 2 - 11 % [facility] Eosinophils Percent Auto 1.8 0 - 4 % [facility] Basophils Percent Auto 0.6 0 - 2 % [facility] NRBC Pct Auto 0.0 0.0 - 0.2 /100WBC [facility] Neutrophils Absolute Auto 6.3 2.0 - 8.3 x10*3/uL [facility] Imm Gran Abs Auto 0.10(H) 0.00 - 0.03 X10*3/uL [facility] Lymphocytes Absolute Auto 0.9(L) 1.2 - 4.9 X10*3/uL [facility] Monocytes Absolute Auto 1.0 0.1 - 1.2 X10*3/uL [facility] Eosinophils Absolute Auto 0.2 0.0 - 0.4 X10*3/uL [facility] Basophils Absolute Auto 0.1 0.0 - 0.2 X10*3/uL [facility] NRBC Abs Auto 0.000 0.0 - 0.012 X10*3/uL [facility] 03/11/2025 8:31 AM EDT 03/11/2025 8:33 AM EDT us Generic External Data Provider LAB BLOOD ORDERAB LES Final Result [facility] [address] [place] [phone] * (ABNORMAL) Basic Metabolic Panel (03/11/2025 8:31 AM EDT) Only the most recent of2 resultswithin the time period is included. Sodium 136 135 - 145 mmol/L [facility] Potassium 4.4 3.3 - 5.1 mmol/L [facility] Chloride 98 96 - 108 mmol/L [facility] Carbon Dioxide 32(H) 22 - 29 mmol/L [facility] Anion Gap 10(L) 12 - 20 [facility] Urea Nitrogen (BUN) 17(H) 9 - 16 mg/dL [facility] Creatinine, Serum 1.16 0.5 - 1.4 mg/dL [facility] Creatinine Clr Calc Pharmacy 48.9 [facility] Comment:Provided height and weight: 154.94 cm,113.2 kg.eGFR (calculated from the MDRD study equation) and eCrCl(calculated from the Cockcroft-Gault equation) are based ondifferent parameters and may not yield comparable results.If eCrCl result is absurd, please check patient'sheight/weight. Estimated Glomerular Filt Rate 46 [facility] Comment:Chronic Kidney Disea se: Estimated GFR < 60 mL/min/1.39s1Ebgezb Kidney Disease: Estimated GFR < 15 mL/min/1.73m2 Glucose 332(H) 60 - 115 mg/dL [facility] Calcium 8.3(L) 8.4 - 10.2 mg/dL [facility] 03/11/2025 8:31 AM EDT 03/11/2025 8:33 AM EDT us Generic External Data Provider LAB BLOOD ORDERAB LES Final Result Performing Organization Address City/State/[facility] Co de Phone Number [facility] [address] [place] [address] [phone] * XR Shoulder 2+ Views Right (03/11/2025 8:21 AM EDT) Only the most recent of3 resultswithin the time period is included. Anatomical Region Laterality Modality Upper Extremities, Shoulder Right Radi ographic Imaging 03/11/2025 8:21 AM EDT Narrative 03/11/2025 8:23 AM EDT [address] [address] XRay Report Signed Patient: Mary Lou Godwin MR#: [id number] : 1950 Acct:[id number] Age/Sex: 74 / F ADM Date: 03/11/25 Loc: HO.ED Attending Dr: Ordering Physician: Yelena Alvarez MD Date of Service: 03/11/25 Procedure(s): XR shoulder RT min 2V Accession Number(s): [id number] cc: Amanda Watkins MD; Yelena Alvarez MD [...] in OV> 03/11/25821 DD/ 0 TD/TT: 03/11/25820 Maid Housekeeper: Procedure Note Donotuseinterpreter, Image - 03/11/2025 [place] [address] XRay Report Signed Patient: Mary Lou Godwin ZMR#: M [id number] : 9Acct:[id number] Age/Sex: 74 / FADM Date: 03/11/25 Loc: HO.ED Attending Dr: Ordering Physician: Yelena Alvarez MD Date of Service: 03/11/25 Procedure(s): XR shoulder RT min 2V Accession Number(s): [id number] cc: Amanda Watkins MD; Yelena Alvarez MD [...] MD in OV> 03/11/25821 DD/ 0 TD/TT: 08/03/25 0821 Maid Housekeeper: [facility] External Provider IMG XR PROCEDURES Edited Result - Final * High Sensitivity Troponin I (03/09/2025 3:33 PM EDT) Only the most recent of3 resultswithin the time period is included. TROPONIN I HIGH SENSITIVITY 11.0 <3.5 - 17.0 ng/L [facility] Comment:The Augustin high sens itivity Troponin-I results should beused in conjunction with other diagnostic information suchas ECG, clinical observations and information, and patientsymptoms to aid in the diagnosis of CA. 03/09/2025 3:33 PM EDT 03/09/2025 3:42 PM EDT Generic External Data Provider LAB BLOOD ORDERAB LES Final Result [facility] [address] [place] [phone] * SARS-CoV-2 RNA, Influenza A/B, and RSV RNA, Ql NAAT (03/09/2025 3:33 PM EDT) Pathologist [facility] Influenza A PCR NEGATIVE Negative [facility] Influenza B PCR NEGATIVE Negative [facility] Resp Syncy Virus RNA Qual PCR NEGATIVE Negative [facility] SARS COV2 PCR NEGATIVE Negative [facility] Comment:All test results mus t [...] use by authorized laboratories.Testing performed on the [employer] GeneXpert utilizingreal-time RT-PCR.All SARS CoV2 and positive influenza A/B results arereported to [facility]. 03/09/2025 3:33 PM EDT 03/09/2025 3:42 PM EDT Generic External Data Provider LAB MICROBIOLOGY - GENERAL ORDERABLES Final Result Performing Organization Address [facility] Co de Phone Number [facility] [address] [place] [phone] * (ABNORMAL) C-reactive Protein (03/09/2025 3:33 PM EDT) C Reactive Protein 4.69(H) < or = 0.50 mg/dL [facility] 03/09/2025 3:33 PM EDT 03/09/2025 3:42 PM EDT Generic External Data Provider LAB BLOOD ORDERAB LES Final Result Performing Organization Address [facility] Phone Number [facility] [address] [place] [phone] * (ABNORMAL) Uric acid (03/09/2025 3:33 PM EDT) Uric Acid 7.8(H) 2.4 - 5.7 mg/dL [facility] 03/09/2025 3:33 PM EDT 03/09/2025 3:42 PM EDT Generic External Data Provider LAB BLOOD ORDERAB LES Final Result Performing Organization Address [facility] Co de Phone Number [facility] [address] [place] [phone] * Magnesium (03/09/2025 3:33 PM EDT) Magnesium 1.8 1.6 - 2.6 mg/dL [facility] 03/09/2025 3:33 PM EDT 03/09/2025 3:42 PM EDT Generic External Data Provider LAB BLOOD ORDERAB LES Final Result Performing Organization Address City/[facility]/ZIP Co de Phone Number [facility] [address] [place] [address] [phone] * (ABNORMAL) Hepatic Function Panel (03/09/2025 3:33 PM EDT) Bilirubin, Total 0.3 0.0 - 1.0 mg/dL [facility] Bilirubin, Direct 0.1 0.0 - 0.5 mg/dL [facility] Aspartate Amino Transferase 22 5 - 31 U/L [facility] Alanine Aminotransferase <6 0 - 31 U/L [facility] Total Protein 6.7 6.5 - 8.0 g/dL [facility] Albumin Level 2.9(L) 3.5 - 5.0 g/dL [facility] Alkaline Phosphatase 74 39 - 117 U/L [facility] 03/09/2025 3:33 PM EDT 03/09/2025 3:42 PM EDT us Generic External Data Provider LAB BLOOD ORDERAB LES Final Result Performing Organization Address [facility] Co de Phone Number [facility] [address] [place] [phone] * CT Abdomen Pelvis w/ Contrast (03/03/2025 9:15 PM EDT) Anatomical Region Laterality Modality Body, Pelvis, Abdomen Computed T omography 03/03/2025 9:15 PM EDT Narrative 03/03/2025 9:17 PM EDT [address] [address] [address] Scan Report Signed Patient: Mary Lou Godwin MR#: M [id number] : 1950 Acct:[id number] Age/Sex: 74 / F ADM Date: 03/03/25 Loc: HO.ED Attending Dr: Ordering Physician: Ingris Song PA-C Date of Service: 03/03/25 Procedure(s): CT abdomen pelvis w IV con Accession Number(s): [id number] cc: Ingris Song PA-C; Amanda Watkins MD Report Number: [id number]: Total DLP = 1159.00 mGy-cm CLINICAL HISTORY: [...] in OV> 03/03/252115 DD/ 14 TD/TT: 03/03/252114 Maid Housekeeper: Procedure Note Donotuseinterpreter, Image - 03/03/[address] [address] [address] Scan Report Signed Patient: Mary Lou Godwin ZMR#: M [id number] : 9Acct:[id number] Age/Sex: 74 / FADM Date: 03/03/25 Loc: HO.ED Attending Dr: Ordering Physician: Ingris Song PA-C Date of Service: 03/03/25 Procedure(s): CT abdomen pelvis w IV con Accession Number(s): [id number] cc: Ingris Song PA-C; Amanda Watkins MD Report Number: [id number]: Total DLP = 1159.00 mGy-cm CLINICAL HISTORY: [...] in OV> 03/03/252115 DD/ 14 TD/TT: 03/03/252114 Maid Housekeeper: [facility] External Provider IMG CT PROCEDURES Edited Result - Final * OBSX1 (03/03/2025 8:16 PM EDT) OBS1 NEGATIVE NEGATIVE [facility] 03/03/2025 8:16 PM EDT 03/03/2025 8:20 PM EDT us Generic External Data Provider LAB BLOOD ORDERAB LES Final Result [facility] [address] [place] [phone] * XR Chest 1 View (03/03/2025 6:57 PM EDT) Anatomical Region Laterality Modality Chest Radiographic Franca ging 03/03/2025 6:57 PM EDT Narrative 03/03/2025 6:59 PM EDT [address] [address] XRay Report Signed Patient: Mary Lou Godwin MR#: M [id number] : 1950 Acct:[id number] Age/Sex: 74 / F ADM Date: 03/03/25 Loc: HO.ED Attending Dr: Ordering Physician: Ingris Song PA-C Date of Service: 03/03/25 Procedure(s): XR chest 1V Accession Number(s): [id number] cc: Ingris Song PA-C; Amanda Watkins MD [...] in OV> 03/03/251857 DD/ 56 TD/TT: 03/03/251856 Maid Housekeeper: Procedure Note Donotuseinterpreter, Image - 03/03/[address] [address] XRay Report Signed Patient: Mary Lou Godwin ZMR#: M [id number] : 9Acct:[id number] Age/Sex: 74 / FADM Date: 03/03/25 Loc: HO.ED Attending Dr: Ordering Physician: Ingris Song PA-C Date of Service: 03/03/25 Procedure(s): XR chest 1V Accession Number(s): [id number] cc: Ingris Song PA-C; Amanda Watkins MD [...] in OV> 03/03/251857 DD/ 56 TD/TT: 03/03/251856 Maid Housekeeper: [facility] External Provider IMG XR PROCEDURES Edited Result - Final * (ABNORMAL) Iron And Total Iron Binding Capacity (03/03/2025 5:30 PM EDT) Iron 10(L) 30 - 160 mcg/dL [facility] Total Iron Binding Capacity 209(L) 228 - 428 mcg/dL [facility] Percent Iron Saturation 5(L) 15 - 50 % [facility] Unsaturated Iron Binding 199 ug/dL [facility] 03/03/2025 5:30 PM EDT 03/03/2025 5:35 PM EDT Generic External Data Provider LAB BLOOD ORDERAB LES Final Result [facility] [address] [place] [phone] * (ABNORMAL) B Type Natriuretic Peptide (BNP) (03/03/2025 5:30 PM EDT) B Type Natriuretic Peptide 337(H) <100 pg/mL [facility] 03/03/2025 5:30 PM EDT 03/03/2025 5:35 PM EDT us Generic External Data Provider LAB BLOOD ORDERAB LES Final Result [facility] [address] [place] [phone] * (ABNORMAL) Comprehensive Metabolic Panel (03/03/2025 5:30 PM EDT) Pathologist [facility] Sodium 135 135 - 145 mmol/L [facility] Potassium 4.7 3.3 - 5.1 mmol/L [facility] Chloride 96 96 - 108 mmol/L [facility] Carbon Dioxide 30(H) 22 - 29 mmol/L [facility] Anion Gap 14 12 - 20 [facility] Urea Nitrogen (BUN) 26(H) 9 - 16 mg/dL [facility] Creatinine, Serum 1.44(H) 0.5 - 1.4 mg/dL [facility] Creatinine Clr Calc Pharmacy 38.6 [facility] Comment:Provided height and weight: 152.4 cm,112.9 kg.eGFR (calculated from the MDRD study equation) and eCrCl(calculated from the Cockcroft-Gault equation) are based ondifferent parameters and may not yield comparable results.If eCrCl result is absurd, please check patient'sheight/weight. Estimated Glomerular Filt Rate 35 [facility] Comment:Chronic Kidney Disea se: Estimated GFR < 60 mL/min/1.38y4Bbbhvy Kidney Disease: Estimated GFR < 15 mL/min/1.73m2 Glucose 370(HH) 60 - 115 mg/dL [facility] Comment:Critical value for t est(s): GLUR Results called to and readback by: NORMAN Person calling: ZHAO Date: 03/03/25 Time:1800 Calcium 7.9(L) 8.4 - 10.2 mg/dL [facility] Bilirubin, Total 0.3 0.0 - 1.0 mg/dL [facility] Aspartate Amino Transferase 17 5 - 31 U/L [facility] Alanine Aminotransferase <6 0 - 31 U/L [facility] Total Protein 6.7 6.5 - 8.0 g/dL [facility] Albumin Level 2.8(L) 3.5 - 5.0 g/dL [facility] Alkaline Phosphatase 73 39 - 117 U/L [facility] 03/03/2025 5:30 PM EDT 03/03/2025 5:35 PM EDT us Generic External Data Provider LAB BLOOD ORDERAB LES Final Result [facility] [address] [place] [phone] * (ABNORMAL) Lipid Panel, Standard (09/01/2024 2:09 PM EST) Triglycerides 241(H) <150 mg/dL [facility] Comment:Desirable Triglyceri de: less than 150 mg/dLBorderline High Triglyceride 150-199 mg/dLHigh Triglyceride: 200-499 mg/dLVery High Triglyceride: greater than or equal to 5OO mg/dL Cholesterol 107 <200 mg/dL [facility] Comment:Desirable Cholestero l: less than 200 mg/dLBorderline High Cholesterol: 200-239 mg/dLHigh Cholesterol: greater than 239 mg/dL LDL Cholesterol Calculated 34 <100 mg/dL [facility] Comment:Desirable LDL: less than 100 mg/dLNear Optimal/Above Optimal LDL: 110- 129 mg/dLBorderline High LDL: 130-159 mg/dLHigh LDL: 160-189 mg/dLVery High LDL: greater than or equal to 190 mg/dL HDL Cholesterol 25(L) >40 mg/dL [facility] Comment:Desirable HDL: great er than 40 mg/dL Note: This HDL assay may give artificially low results in patients with liver disease. 09/01/2024 2:09 PM EST 09/01/2024 4:09 PM EST us Amanda Myers MD LAB BLOOD ORDERABLES Final Result [facility] [address] [place] [phone] * (ABNORMAL) ALBUMIN, RANDOM URINE W/CREATININE [...] ORDERABLES Final R esult Performing Organization Address City/[facility] Co de Phone Number [facility] [address] from Last 3 Months or Most Recently Relevant to Health Maintenance Insurance [facility] SN[facility] OPTIONS (HMO D-SNP) [facility] STANDARD Care Teams Truck Caterer Relationship Specialty Start Date End Date Amanda Watkins MD [address] [place] [address] PCP - General Family Medicine 04/07/19 Hiro Ram FNP [address] [place] [address] Nurse Practitioner Family Medicine 07/06/23 Raad Arias, TheaD [address] [place] [address] Pharmacist Internal Medicine 10/19/24 [facility] 03/08/25
--- OUTSIDE RECORDS SUMMARY | 2025-06-03 08:03 | XMS_ITS | Encounter Summary ---
Author Organization [employer] Address [address] [facility] 7t [place] [address] Care Team Providers Care Turf And Grounds Supervisor Name Role Phone Amanda Watkins MD Primary Care Provide r Hiro Ram HIDE COOKING OPERATOR Unavailable Unavailable Raad Arias PharmD Unavailable [phone] Reason for Visit * Reason Onset Date Comments Med Refill 01/16/2025 Encounter Details Date Type Department Care Team ([facility] st Contact Info) Description 01/16/2025 Telephone [facility] [address] [place] [address] Amanda Watkins MD [address] [place] [address] Med Refill Social History Tobacco Use Types [...] 10:59 AM EDT Medication was sent to [facility] Pharm[facility] on 12/28/24 #30 with 2 refills. * Telephone Encounter - Radha Stevenson - 01/16/2025 10:54 AM EDT TC from pt requesting medication refill. Medications needing refill : levothyroxine (Synthroid, Levoxyl) 75 MCG tablet To be sent to: [facility] pharmacy documented in this encounter Plan of Treatment Upcoming Encounters Date Type Department Care Team (Late st Contact Info) Description 06/08/2025 2:00 PM EDT Telemedicine [facility] [address] [place] [phone] Kayley Alanis RN 07/09/2025 3:30 PM EST Office Visit [facility] [address] [place] [phone] Amanda Watkins MD [address] [place] [address] documented as of this encounter Visit Diagnoses Not on filedocumented in this encounter Additional Health Concerns Assessment Noted Time PHQ-9 Depression Total Score: 0 09/01/19 1:18 PM EST documented as of this encounter Care Teams Turf And Grounds Supervisor Relationship Specialty Start Date End Date Amanda Watkins MD [address] [place] [phone] PCP - General Family Medicine 04/07/19 Hiro Ram FNP [address] [place] [address] Nurse Practitioner Family Medicine 07/06/23 Raad Arias, TheaD [address] [place] [address] Pharmacist Internal Medicine 10/19/24 Ja A 08/10/24 03/12/25 [facility] 03/08/25 documented as of this encounter
--- OUTSIDE RECORDS SUMMARY | 2025-06-03 08:03 | XMS_ITS | Encounter Summary ---
Author Organization [employer] Address [address] [facility] 7t [place] [address] Care Team Providers Care Chute Operator Name Role Phone Amanda Watkins MD Primary Care Provide r Hiro Ram ADVERTISING MANAGER Unavailable Unavailable Raad Arias PharmD Unavailable [phone] Reason for Visit * Reason Onset Date Comments Med Refill 01/03/2025 Encounter Details Date Type Department Care Team (Late st Contact Info) Description 01/03/2025 Refill [facility] [address] [place] [address] Amanda Watkins MD [address] [place], [place] [phone] Chronic bilateral low back pain with bilateral [...] not with her 12/10/23 - [facility] Tele FOAM CASTER RV * Telephone Encounter - Sky Sánchez - 01/03/2025 1:12 PM EDT TC from pt requesting medication refill. Medications needing refill: oxyCODONE-acetaminophen (Percocet) 5-325 MG tablet To be sent to: [facility] - [place], [place] - [address] documented in this encounter Plan of Treatment Upcoming Encounters Date Type Department Care Team (Late st Contact Info) Description 06/08/2025 2:00 PM EDT Telemedicine [facility] [address] [place] [phone] Kayley Alanis RN 07/09/2025 3:30 PM EST Office Visit [facility] [address] [place] [phone] Amanda Watkins MD [address] [place] [phone] documented as of this encounter Visit Diagnoses Diagnosis Chronic bilateral low back pain with bilateral sciatica documented in this encounter Additional Health Concerns Assessment Noted Time PHQ-9 Depression Total Score: 0 09/01/19 1:18 PM EST documented as of this encounter Care Teams Chute Operator Relationship Specialty Start Date End Date Amanda Watkins MD [address] [place] [phone] PCP - General Family Medicine 04/07/19 Hiro Ram FNP [address] [place] [phone] Nurse Practitioner Family Medicine 07/06/23 Raad Arias, TheaD [address] [place] [phone] Pharmacist Internal Medicine 10/19/24 Ja A 08/10/24 03/12/25 [facility] 03/08/25 documented as of this encounter
--- OUTSIDE RECORDS SUMMARY | 2025-06-03 08:03 | XMS_ITS | Encounter Summary ---
Author Organization [employer] Address [address] [facility] 7t [place] [address] Care Team Providers Care Technology Analyst Name Role Phone Amanda Watkins MD Primary Care Provide r Hiro Ram DRAWING HAND Unavailable Unavailable Raad Arias PharmD Unavailable [phone] Reason for Visit * Reason Onset Date Comments Durable Medical Equipment 01/09/2025 Encounter Details Date Type Department Care Team (Late st Contact Info) Description 01/09/2025 Telephone [facility] [address] [place] [address] Amanda Watkins MD [address] [place] [address] Durable Medical Equipment Social History Tobacco Use [...] 06/08/2025 2:00 PM EDT Telemedicine [facility] [address] [place] [phone] Kayley Alanis RN 07/09/2025 3:30 PM EST Office Visit [facility] [address] [place] [phone] Amanda Watkins MD [address] [place], [place] [phone] documented as of this encounter Visit Diagnoses Not on filedocumented in this encounter Additional Health Concerns Assessment Noted Time PHQ-9 Depression Total Score: 0 09/01/19 1:18 PM EST documented as of this encounter Care Teams Technology Analyst Relationship Specialty Start Date End Date Amanda Watkins MD [address] [place] [phone] PCP - General Family Medicine 04/07/19 Hiro Ram FNP [address] [place] [phone] Nurse Practitioner Family Medicine 07/06/23 Raad Arias, TheaD [address] [place] [phone] Pharmacist Internal Medicine 10/19/24 Ja [facility] 08/10/24 03/12/25 [facility] 03/08/25 documented as of this encounter
--- OUTSIDE RECORDS SUMMARY | 2025-06-03 08:03 | XMS_ITS | Encounter Summary ---
Author Organization [employer] Address 75 [facility] 7t [place] [address] Care Team Providers Care Acetylene Torch Operator Name Role Phone Amanda Watkins MD Primary Care Provide r Hiro Ram Unavailable Unavailable Raad Arias PharmD Unavailable [phone] Reason for Visit * Reason Comments Med Refill Encounter Details Date Type Department Care Team (Late st Contact Info) Description 11/18/2023 Refill [facility] [address] [place] [address] Hiro Ram FNP Social History Tobacco Use [...] 06/08/2025 2:00 PM EDT Telemedicine [facility] MEDICINE [address] [place] [phone] Kayley Alanis RN 07/09/2025 3:30 PM EST Office Visit [facility] MED[facility]INE [address] [place] [address] Amanda Watkins MD [address] [place] [address] documented as of this encounter Visit Diagnoses Not on filedocumented in this encounter Additional Health Concerns Assessment Noted Time PHQ-9 Depression Total Score: 8 07/19/20 23 11:34 AM EST documented as of this encounter Care Teams Acetylene Torch Operator Relationship Specialty Start Date End Date Amanda Watkins MD [address] [place] [phone] PCP - General Family Medicine 04/07/19 Hiro Ram FNP [address] [place] [phone] Nurse Practitioner Family Medicine 07/06/23 Raad Arias, TheaD [address] [place] [address] Pharmacist Internal Medicine 10/19/24 [facility] 07/03/22 08/16/24 Ja ROMERO 08/10/24 03/12/25 [facility] 03/08/25 documented as of this encounter
--- OUTSIDE RECORDS SUMMARY | 2025-06-03 08:03 | XMS_ITS | Encounter Summary ---
Author Organization [employer] Address [address] [facility] 7t [place] [address] Care Team Providers Care Process Control Specialist Name Role Phone Amanda Watkins MD Primary Care Provide r Hiro aRm DOMESTIC CLEANER Unavailable Unavailable Raad Arias PharmD Unavailable [phone] Reason for Visit * Reason Onset Date Comments Med Refill 05/29/2025 Encounter Details Date Type Department Care Team ([facility] st Contact Info) Description 05/29/2025 Telephone [facility] [address] [place] [address] Amanda Watkins MD [address] [place] [address] Med Refill Social History Tobacco Use Types [...] Telephone Encounter - Kayley Alanis RN - 05/29/2025 3:01 PM EDT Refill addressed in separate encounter * Telephone Encounter - Hugh Pablo - 05/29/2025 2:32 PM EDT TC from pt requesting medication refill. Medications needing refill : oxyCODONE-acetaminophen (Percocet) 5-325 MG tablet To be sent to: [facility] - [place], [place] - [address] [place] [address] documented in this encounter Plan of Treatment Upcoming Encounters Date Type Department Care Team (Late st Contact Info) Description 06/08/2025 2:00 PM EDT Telemedicine [address] [address] Kayley Alanis RN 07/09/2025 3:30 PM EST Office Visit [facility] [address] [place] [phone] Amanda Watkins MD [address] [place] [address] documented as of this encounter Visit Diagnoses Not on filedocumented in this encounter Additional Health Concerns Assessment Noted Time PHQ-9 Depression Total Score: 14 025 2:41 PM EDT documented as of this encounter Care Teams Process Control Specialist Relationship Specialty Start Date End Date Amanda Watkins MD [address] [place] [phone] PCP - General Family Medicine 04/07/19 Hiro Ram FNP [address] [place] [phone] Nurse Practitioner Family Medicine 07/06/23 Raad Arias, TheaD [address] [place] [phone] Pharmacist Internal Medicine 10/19/24 [facility] 03/08/25 documented as of this encounter
--- OUTSIDE RECORDS SUMMARY | 2025-06-03 08:03 | XMS_ITS | Encounter Summary ---
Author Organization [employer] Address [address] [facility] [address] [place] [address] Care Team Providers Care Field Service Poultry Technician Name Role Phone Amanda Watkins MD Primary Care Provide r Hiro Ram MACHINE STITCHER Unavailable Unavailable Raad Arias PharmD Unavailable [phone] Reason for Visit * Reason Onset Date Comments Appointment Request 04/30/2025 Encounter Details Date Type Department Care Team ([facility] st Contact Info) Description 04/30/[address] [facility] MEDICINE [address] [place] [address] Amanda Watkins MD [address] [place] [address] Appointment Request Social History Tobacco Use Types [...] requesting to reschedule CDTM apt Contact at [phone] (ivorian) documented in this encounter Plan of Treatment Upcoming Encounters Date Type Department Care Team (Late st Contact Info) Description 06/08/2025 2:00 PM EDT Telemedicine [facility] MEDICINE [address] [place] [id number] Kayley Alanis RN 07/09/2025 3:30 PM EST Office Visit [facility] MEDICINE [address] [place] [address] [phone] Amanda Watkins MD [address] [place] [address] documented as of this encounter Visit Diagnoses Not on filedocumented in this encounter Additional Health Concerns Assessment Noted Time PHQ-9 Depression Total Score: 14 025 2:41 PM EDT documented as of this encounter Care Teams Field Service Poultry Technician Relationship Specialty Start Date End Date Amanda Watkins MD [address] [place] [address] PCP - General Family Medicine 04/07/19 Hiro Ram FNP [address] [place] [address] Nurse Practitioner Family Medicine 07/06/23 Raad Arias, TheaD [address] [place] [address] Pharmacist Internal Medicine 10/19/24 [facility] 03/08/25 documented as of this encounter
--- OUTSIDE RECORDS SUMMARY | 2025-06-03 08:03 | XMS_ITS | Data Portability ---
Author Organization [facility], [facility] Address [address] [place] [address] Care Team Providers Care Boiler Welder Name Role Phone HIM CCA OTHER CRUZ MAURICE Primary Care Provider Assessment Encounter Date Assessment Date Assessment LastModified by Organization Details LastModified Time 03/27/2024 03/27/2024 I provided real -time medical direction via phone for this encounter, and was available for additional phone based assistance as needed. I have reviewed and agree with the Assessment and Plan as documented by the Director Recreation. We discussed the diagnostic uncertainty of home [...] to call 911- verbalized understanding of instruction [email or web address] Not available 03/27/2024 16:48:02 05/29/2024 05/29/2024 service [...] in the field was performed by my director of community education colleague, as noted above, I provided real-time [...] Assessment and Plan as documented by the Director Recreation. We discussed the diagnostic uncertainty of home [...] to call 911- verbalized understanding of instruction [email or web address] Not available 02/26/2025 13:27:16 03/23/2025 03/23/2025 service called for left shoulder pain found 74 olri with hx HTN chronic back pain fibromyalgic OA osteoporisis kidney injury (Cr 2.8), recently improved (Cr 1.2) c/o continued left shoulder pain refractory to prescribed PO oxycodone denies new trauma or injury of note records 2025-03-11 and 2025-03-09 from [facility] show R shoulder XR with chronic degenerative [...] or plasma 2024 025 [facility], [address] [place] [address], [id number] 5 18:49:55 culture, urine 2023 024 [facility] (Centralized Electronic Ordering - All Locations), Patient Can Go To The Location Of Their Choice, [id number] 4 08:09:10 urinalysis, dipstick 2023 024 [facility], [address] [place] [address], [id number] 20:30:58 Referral None recorded. Procedures None recorded. Surgeries None recorded. Imaging None recorded. Medication Orders amoxicillin 875 mg-potassiu m clavulanate 125 mg tablet 2024 025 [facility], [address] [place] [address], [id number], 5 12:52:33 amoxicillin 500 mg-potassiu m clavulanate 125 mg tablet 2024 025 [email or web address] 0 [facility], [address] [place] [address], [id number], 5 12:44:30 bacitracin 500 unit/gram topical ointment 2024 025 [facility], [address] [place] [address], [id number], 5 12:52:29 furosemide 10 mg/mL injection solution 2024 025 [email or web address] 0 [facility], [address] [place] [address], [id number], 5 13:25:40 albuterol sulfate 2.5 mg/3 mL (0.083 %) solution for nebulizatio n 2024 025 [email or web address], [address] [place] [address], [id number], 5 12:44:30 albuterol sulfate 2.5 mg/3 mL (0.083 %) solution for nebulizatio n 2024 025 [facility], [address] [place] [address], [id number], 5 12:52:33 albuterol sulfate HFA 90 mcg/actuati on aerosol inhaler 2024 025 [facility], [address] [place] [address], [id number], 5 12:52:28 Ciprodex 0.3 %-0.1 % ear drops,suspe nsion 2024 025 [facility], [address] [place] [address], [id number], 5 12:33:11 clotrimazol e 1 % topical cream 2023 024 [facility], [address] [place] [address], [id number], 4 10:37:01 bacitracin 500 unit/gram topical ointment 2023 024 [email or web address] [facility], [address] [place] [address], [id number], 4 11:28:20 bacitracin 500 unit/gram topical ointment 2023 024 [facility], [address] [place] [address], [id number], 14:30:32 Patient TargetsNo targets recorded. Patient Instructions Encounter Date Encounter Id Patient Instructions Last Modified By Organization Details Last Modified Time 03/27/2024 [id number] wound care* [email or web address] Not available 11:28:21 Reason for Referral None Reported. Results Created Date Observation Date Name Description Value Unit Range Abnormal Flag Note LastModifiedBy Organization Detail LastModifiedTime 05/29/2005/31/2024 URINE CULTU RE,CO MPREH ENSIV E urine culture,comp rehensive Final report Not Available [facility] ([facility]) [address] [place], [address], 05/31/2024 08:09:10 05/29/2005/31/2024 URINE CULTU RE,CO MPREH ENSIV E result 1 COMMEN T Mixed uroge nital mary Great er than 100,0 00 colon y formi ng units per mL Not Available [facility] ([facility]) [address] [facility], [place], [address], 05/31/2024 08:09:10 Result Notes None recorded. Problems Name Problem SNOMED Code Status Onset Date Resolution Date Notes Provider Name and Address Organization Details Recorded Time Essential hypertensio n 01195241 Active 2022 Len Nguyen MD [address] [place] [address],[address], [place], [address], [employer] 18:59:08 Arterial insufficien cy 102436824 Active 2023 Len Nguyen MD [address] [facility],[address], [place], [address], [employer] 18:58:53 Asthma 557903178 Active 2023 Len Nguyen MD [address] [facility],[address], [place], [address], [employer] 18:59:00 Atrial fibrillatio n 58737411 Active 2023 Len Nguyen MD [address] [place] [address],[address], [place], [address], [place] [employer] 18:59:03 Arthritis 6977018 Active 2023 Len Nguyen MD [address] [place] [address],[address], [place], [address], [place] [employer] 18:58:58 Chronic kidney disease stage 3B 698303133 Active 2023 Len Nguyen MD [address] [place] [address],[address], [place], [address], [place] [employer] 18:58:51 Chronic diastolic heart failure 454809611 Active 2024 Len Nguyen MD [address] [place] [address],[address], [place], [address], [place] [employer] 18:58:42 Hyperglycem ia due to type 2 diabetes mellitus 4533814349777 09 Active 2024 Len Nguyen MD [address] [place] [address],[address], [place], [address], [place] [employer] 18:58:45 Moderate recurrent major depression 10806701 Active 2024 Len Nguyen MD [address] [place] [address],[address], [place], [address], [place] [employer] 18:58:37 Morbid obesity 604487980 Active 2024 Len Nguyen MD [address] [place] [address],[address], [place], [address], [place] [employer] 18:58:39 Problem Notes None recorded. Medical Equipment None Reported. Allergies Allergen ID Allergen Name Allergen Category Reaction Reaction Severity Criticality Documentation Date Start Date Code Code System Note Provider Name and Address Organization Details Recorded Time 43437 hydrocodo ne Not available Not available Not available Not available 03/23/2025 5489 RxNorm Len Nguyen MD [address] [place] [address],[address], [place], [address], [place] [employer] 18:59:23 5119 codeine medicatio n Not available Not available Not available 12/30/2023 2670 RxNorm Not Available [employer] 5 10:35:11 Medications Name Sig [...] Not Available Not Available Not Available [employer] Tappen Lite kit USE DIRECTED TO TEST BLOOD [...] Available No t Available [employer] Mickey 2 Admire USE DIRECTED EVERY 8 HOURS active Not [...] % 60 /min 108/57 mm[Hg] Not Available [employer] 5 17:25:24 Date Recorded Body height Body mass index (BMI) Body weight Provider Name and Address Organization Details Last Updated DateTime 02/26/2025 134.62 cm 61.5 kg/m2 830348 g Radha Foster MD [address] [facility],[address] [facility], [place], [address], [place] [facility] 02/26/2025 17:57:17 Date Recorded Oxygen saturation Oxygen saturation in Arterial blood by Pulse oximetry Respiratory rate Heart rate Body temperature Systolic And Diastolic Provider Name and Address Organization Details Last Updated DateTime 5 92 % 92 % 18 /min 68 /min 98.8 [degF] 152/84 mm[Hg] Not Available [employer] - production 5 12:10:50 Date Recorded Oxygen saturation Oxygen saturation in Arterial blood by Pulse oximetry Body weight Body temperature Respiratory rate Heart rate Body height Systolic And Diastolic Provider Name and Address Organization Details Last Updated DateTime 5 98 % 98 % 866702. 08 g 99 [degF] 16 /min 72 /min 154.94 cm 141/71 mm[Hg] Not Available [employer] 5 18:57:20 Date Recorded Respiratory rate Oxygen saturation Oxygen saturation in Arterial blood by Pulse oximetry Body height Heart rate Body temperature Body weight Systolic And Diastolic Provider Name and Address Organization Details Last Updated DateTime 4 16 /min 94 % 94 % 157.48 cm 60 /min 98.7 [degF] 142820. 448 g 129/77 mm[Hg] Not Available [employer] [facility] 4 11:19:40 Date Recorded Heart rate Body height Body temperature Respiratory rate Oxygen saturation Oxygen saturation in Arterial blood by Pulse oximetry Body weight Systolic And Diastolic Provider Name and Address Organization Details Last Updated DateTime 4 58 /min 134.62 cm 99.3 [degF] 16 /min 95 % 95 % 288733. 632 g 150/73 mm[Hg] Not Available [employer] 4 17:02:13 Social History None recorded. Functional Status None recorded. Mental Status None recorded. Family History Nothing Reported. Medical History No medical history recorded. Gynecological HistoryNo gynecological history recorded. Obstetrics History GPAL:G 0 P 0 0 0 0 Past Encounters Encounter ID Performer Location Encounter Start Date Encounter Closed Date Diagnosis/Indication Diagnosis SNOMED-CT Code Diagnosis ICD10 Code Diagnosis IMO Codes Diagnosis Note [id number] Radha Foster MD Main - [facility] [address] [place] [address] 12/30/2023 14:10:14 12/31/2023 21:23:21 Cellulitis of lower limb 280270118 L03.119 left lower leg primarily ? starting [...] better staph coverage-a dvised to apply sparingly. [id number] Radha Foster MD Main - [facility] [address] [place] [address] 02/09/2024 16:16:11 02/10/2024 13:33:55 Cellulitis of lower limb 777861330 L03.119 left lower leg primarily, less on [...] better staph coverage-a dvised to apply sparingly. [id number] Angely Lake MD Main - [facility] [address] [place] [address] 02/23/2024 15:31:54 02/23/2024 22:21:20 Peripheral vascular disease 943448711 I73.9 73 year old female being evaluated [...] assessment and plan as documented by the director of community education. I provided real-time medical direction for this encounter and was immediatel y available to provide additional phone-base d assistance as needed. We discussed the diagnostic uncertaint y of home visits and associated risks. We discussed the need to seek care urgently/e mergently in the setting of any new or worsening symptoms. [id number] Radha Foster MD Main - [address] [address] 03/27/2024 11:19:23 03/27/2024 22:47:07 Wound of skin 010910861 T14.8XXA Advised to elevate the leg/not use [...] reviewed she is only allergic to codeine. [id number] Len Nguyen MD Main - [facility] [address] [place] [address] 05/29/2024 17:02:10 05/30/2024 10:24:58 Tinea cruris 612763952 B35.6 Urinary symptoms 8243106 08 R39.9 [id number] [facility] [address] [place] [address] 09/25/2024 17:25:19 09/26/2024 08:34:36 Otitis externa of right ear 4916725522 300996 H60.91 [id number] Radha Foster MD Main-[facility] ED Medical [address] [address] 02/26/2025 12:10:42 02/26/2025 19:21:42 Peripheral edema 424698680 R60.0 26535 w/ cellulitis LLE-doubt DVT given no calf [...] exac erbation of chronic obstructive pulmonary disease 458529669 J44.1 058621 Status post neb sat 99% heart rate 71 and breath sounds clear- feels good/Needs to use 02 2lNC- sent in new albuterol mdi and nebulizer rx-patient 's nebulizer and her albuterol which may be outdated is at her daughters and she has run out of her albuterol MDI so new Rx sent. Advised using regularly will help with chronic dyspnea on exertion. [id number] Len Nguyen MD Main-[facility] ED Medical [address] [address] 03/23/2025 18:57:16 03/23/2025 23:47:02 Bilateral chronic pain of upper limbs 4975277789 7659828 M25.511 M25.512 G89.29 70921122 Health Concerns Section Related Observation LastModified by Organization Detai ls LastModified Time None Recorded Concern Status LastModified by Organization Details LastModified Time None Recorded Advance Directives Directive None Recorded Payers Insurance Date Sequence Insurance Name Policy Number Policy Meza Covered Member ID Meza Member ID Guarantor Name 03/23/2025 1 [facility] - DOS ON OR AFTER 2022 - DUAL ELIGIBLE - FDC OPTIONS AND ONE CARE (MEDICARE REPLACEMENT/ADV ANTAGE - HMO) Mary Lou Cisneros [id number] Mary Lou Cisneros Notes Date Note Type Note Provider Name and Address Organization Details Recorded Time 03/27/20 24 text/ht ml ROS as noted in the HPI CRC Nurse Triage Notes (Rishi Domínguez): Reason For Request: left leg pain Chief Complaints: Pain PMH: Diabetes, Hypertension, COPD/Asthma Other Allergies: NKDA Comments: Enterprise Application Administrator verified the member's name//address and phone number. [...] Denies SOB ................................. ................................. ................................. ................................. ......... Director Recreation Note From Markell Villagomez: Pt s daughter/CG reports pt was seen at [place] [facility] last week for cellulitis of the [...] ......... Disposition: Fulfilled Radha Foster MD [address] [facility],[address], [place], [address], [facility] 03/27/2024 16:49:56 05/29/20 24 text/ht ml HPI: pmhx: UTI, candidiasis of vagina UTI, urine retention.Call returned to [facility] to triage below. Reports having rash on callie area x 1 week. Per daughter no fluid filled spots. Small red pin point spots. Pt also having urinary frequency. Has applied Vaseline to area with mild relief. Per daughter concerned as pt is DM and has been scratching area concerned for infection. Unable to bring pt to WIC at [facility] as pt is bed bound. Agrees to [facility] referral. Confirmed address, contact number and allergies. ................................. ................................. ................................. ................................. ......... CRC Nurse Triage Notes (Melinda Melvin): Chief Complaints: Rash, UTI/Pyelonephritis PMH: COPD/Asthma, Diabetes, Hypertension, COPD/Asthma Other Allergies: CODIENE Comments: CRC RN did not require any additional information to process this visit. Director Recreation Organization Information for Jerman Anderson Business Legal Name: [employer]. Address: [address] [place] [address], Electric Meter Reader: Jhon HERNANDEZ No.: [id number] Director Recreation POC Test Results from Jerman Anderson Blood [...] ++++ GLU ................................. ................................. ................................. ................................. ......... Director Recreation Note From Jerman Anderson: [facility] visit for female pt. Pt presents with family and BRINELL TESTER. Pt has reportedly had redness and irritation in her groin for 1 week in addition to high blood sugars. V/S taken as listed. Pt afebrile, though temp seems to be elevated with pt having taken acetaminophen today. BRINELL TESTER changed pt's diaper and redness was noted in addition to smell consistent with possible fungal infection. Obtained urine sample positive for leukocytes and nitrates and blood and glucose. Blood glucose elevated at 335 mg/dL. Family reports difficulty maintaining blood sugar and that pt has not adhered to dietary restrictions. Urine culture obtained. Consulted with [facility] Dr. Nguyen who prescribed clotrimazole and ordered urine culture. Reviewed red flags for ED. Pt education provided. Culture delivered to [facility]. [facility] Lab Orders: culture, urine: Performed ................................. ................................. ................................. ................................. ......... Disposition: Fulfilled Len Nguyen MD [address] [place] [address],[address], [place], [address], [employer] 05/29/2024 22:50:45 09/25/19 25 text/ht ml CRC [...] s/s and seek emergency treatment if needed. Director Recreation Organization Information for Markell Villagomez Business Legal Name: [facility] Address: [address] [place] [address], Electric Meter Reader: Rob Bhagat MD CLIA No.: [id number] Director Recreation POC Test Results from Markell Villagomez Rapid [...] s/s and seek emergency treatment if needed.[facility] HPI: known FM, chronic pain, uses oxycodone and gabapentin for this. 3-7d R ear pain. some sinus congestion ................................. ................................. ................................. ................................. ......... Director Recreation Note From Markell Villagomez: This 74-year-old female [...] plan. ................................. ................................. ................................. ................................. ......... [facility] Consulted: Michelle Rg ................................. ................................. ................................. ................................. ......... Disposition: Mathew Rg MD [address] [place] [address],[address], [place], [address], [employer] 09/25/2024 18:01:43 02/27/20 25 text/ht ml ROS as noted in the [facility] CRC Nurse Triage Notes (Agustín Shipley): Reason For Request: Pt's BRINELL TESTER reporting discoloration changes in her legs (redness)Denies: [...] 74 y.o female complains of Extremity PainPatient's BRINELL TESTER calling reporting patient is having red discoloration to L lower leg for the last two weeks. BRINELL TESTER reports this has happened before and the [...] H&H on 08/02/2024 was 7.4 and 25.3 Director Recreation Organization Information for Garrick El Josh Kapadia Legal Name: [employer]. Address: [address] [place] [address], Electric Meter Reader: Jhon HERNANDEZ No.: [id number] Director Recreation POC Test Results from [place] [facility] iSTAT Chem8+ (12:24:44) Na: 135 mEq/L K: 4.2 mEq/L Cl: 93 mEq/L iCa: 1.05 mmol/L TCO2: 32 mmol/L Glu: 264 mg/dL BUN: 23 mg/dL Crea: 1.4 mg/dL Hct: 24 % Hb: 8.2 g/dL A mmol/L Cartridge Number: [id number] Attachments uploaded as part of this test result can be found under Documents section. ................................. ................................. ................................. ................................. ......... Director Recreation Note From [place]: Encountered patient supine [...] or inflammation. BMP performed, values uploaded via [employer]. Skin warm, dry and of appropriate color [...] the knee; peripheral pulses present throughout. [facility] contacted: reports they will treat patient for a suspected infection while also addressing possible fluid retention. Augmentin x1 administered. Albuterol neb treatment x1 administered. 40mg IM Furosemide administered. All medications administered after reconciling r ights with patient and family. [facility] reports they will send a [...] she is comfortable remaining home today. [facility] Lab Orders: BMP, serum or plasma: Performed [facility] Medication Orders: amoxicillin 500 mg-potassium clavulanate 125 mg tablet: Administered furosemide 10 mg/mL injection solution: Administered albuterol sulfate 2.5 mg/3 mL (0.083 %) solution for nebulization: Administered ................................. ................................. ................................. ................................. ......... [facility] Consulted: Radha Foster ................................. ................................. ................................. ................................. ......... Disposition: Mathew Foster MD [address] [facility],[address], [place], [address], [facility] [employer] 02/26/2025 18:08:10 03/23/20 25 text/ht ml CRC [...] emergency care. ................................. ................................. ................................. ................................. ......... Director Recreation Note From Jerman Anderson: [facility] visit for female patient complaining of left shoulder pain. Patient is Barbadian-speaking and an broadcast correspondent was used by phone throughout visit. Patient [...] is listed. Patient afebrile. Consulted with [facility] doctor timothy who advised that do patients chronic kidney disease we would not be able to administer NSAIDs or any other pain agents at this time. Patient told that she would have to follow up with primary care or go to the emergency department for any stronger pain medication. Patient education provided. ................................. ................................. ................................. ................................. ......... [facility] Consulted: Len Nguyen ................................. ................................. ................................. ................................. ......... Disposition: Fulfilled Len Nguyen MD [address] [facility],[address], [place], [address], [employer] 03/23/2025 22:05:38 OBGyn Episode No OBEpisode recorded.
--- OUTSIDE RECORDS SUMMARY | 2025-06-03 08:03 | XMS_ITS | Encounter Summary ---
Author Organization [employer] Address [address] [facility] 7t [place] [address] Care Team Providers Care Grails Web Application Developer Name Role Phone Amanda Watkins MD Primary Care Provide r Hiro Ram HEALTHCARE INSURANCE SALES AGENT Unavailable Unavailable Raad Arias PharmD Unavailable [phone] Reason for Visit * Reason Onset Date Comments Hospital Follow-up 08/16/2024 Encounter Details Date Type Department Care Team (Late st Contact Info) Description 08/16/2024 Telephone [facility] [address] [place] [address] Amanda Watkins MD [address] [place], [place] [phone] Hospital Follow-up Social History Tobacco Use Types [...] from pt requesting a HDF appt. Hospital: [facility] Date of admission: 08/12/24 Discharge date: 08/15/2024 Diagnosed: (water in the lungs) *Send message to [place] Clinical Care Coordinators documented in this encounter Plan of Treatment Upcoming Encounters Date Type Department Care Team (Late st Contact Info) Description 06/08/2025 2:00 PM EDT Telemedicine [facility]INE [address] [place] [address] Kayley Alanis RN 07/09/2025 3:30 PM EST Office Visit [facility] [address] [place] [address] Amanda Watkins MD [address] [place] [address] documented as of this encounter Visit Diagnoses Not on filedocumented in this encounter Additional Health Concerns Assessment Noted Time PHQ-9 Depression Total Score: 10 024 3:23 PM EDT documented as of this encounter Care Teams Grails Web Application Developer Relationship Specialty Start Date End Date Amanda Watkins MD [address] [place] [address] PCP - General Family Medicine 04/07/19 Hiro Ram FNP [address] [place] [address] Nurse Practitioner Family Medicine 07/06/23 Raad Arias, TheaD [address] [place] [address] Pharmacist Internal Medicine 10/19/24 [facility] 07/03/22 08/16/24 Ja A 08/10/24 03/12/25 [facility] 03/08/25 documented as of this encounter
--- OUTSIDE RECORDS SUMMARY | 2025-06-03 08:03 | XMS_ITS | Encounter Summary ---
Author Organization [employer] Address [address] [facility] 7t [place] [address] Care Team Providers Care .Net Developer Name Role Phone Amanda Watkins MD Primary Care Provide r Hiro Ram DISH MAKER Unavailable Unavailable Raad Arias PharmD Unavailable Reason for Visit * Reason Onset Date Comments Med Refill 05/25/2025 Encounter Details Date Type Department Care Team (Late st Contact Info) Description 05/25/2025 Refill [facility] [address] [place] [address] Amanda Watkins MD [address] [place] [address] Chronic bilateral low back pain with bilateral [...] MG tablet To be sent to: - [facility] - [place], [place] - [address] [place] [address] documented in this encounter Plan of Treatment Upcoming Encounters Date Type Department Care Team (Late st Contact Info) Description 06/08/2025 2:00 PM EDT Telemedicine [facility] [address] [place] [address] Kayley Alanis RN 07/09/2025 3:30 PM EST Office Visit [facility] [address] [place] [address] Amanda Watkins MD [address] [place] [address] documented as of this encounter Visit Diagnoses Diagnosis Chronic bilateral low back pain with bilateral sciatica- Primary documented in this encounter Additional Health Concerns Assessment Noted Time PHQ-9 Depression Total Score: 14 025 2:41 PM EDT documented as of this encounter Care Teams .Net Developer Relationship Specialty Start Date End Date Amanda Watkins MD [address] [place] [address] PCP - General Family Medicine 04/07/19 Hiro Ram FNP [address] [place] [address] Nurse Practitioner Family Medicine 07/06/23 Raad Arias, TheaD [address] [place] [address] Pharmacist Internal Medicine 10/19/24 [facility] 03/08/25 documented as of this encounter
--- OUTSIDE RECORDS SUMMARY | 2025-06-03 08:03 | XMS_ITS | Encounter Summary ---
Author Organization [employer] Address 75 [facility] 7t [place] [address] Care Team Providers Care Railway Signalling Engineer Name Role Phone Amanda Watkins MD Primary Care Provide r Hiro Ram LEGAL FINANCIAL SPECIALIST Unavailable Unavailable Raad Arias PharmD Unavailable [phone] Reason for Visit * Reason Comments Med Refill Encounter Details Date Type Department Care Team (Late st Contact Info) Description 07/05/2024 Refill [facility] [address] [place] [address] Amanda Watkins MD [address] [place], [place] [phone] Social History Tobacco Use Types Packs/Day Years [...] 06/08/2025 2:00 PM EDT Telemedicine [facility] [address] [place] [address] Kayley Alanis RN 07/09/2025 3:30 PM EST Office Visit [facility] [address] [place] [address] Amanda Watkins MD [address] [place] [address] documented as of this encounter Visit Diagnoses Not on filedocumented in this encounter Additional Health Concerns Assessment Noted Time PHQ-9 Depression Total Score: 10 024 3:23 PM EDT documented as of this encounter Care Teams Railway Signalling Engineer Relationship Specialty Start Date End Date Amanda Watkins MD [address] [place] [address] PCP - General Family Medicine 04/07/19 Hiro Ram FNP [address] [place] [address] Nurse Practitioner Family Medicine 07/06/23 Raad Arias, TheaD [address] [place] [address] Pharmacist Internal Medicine 10/19/24 [facility] 07/03/22 08/16/24 Ja ARCE 08/10/24 03/12/25 [facility] 03/08/25 documented as of this encounter
--- OUTSIDE RECORDS SUMMARY | 2025-06-03 08:04 | XMS_ITS | Encounter Summary ---
Author Organization [employer] Address 75 [facility] 7t [place] [address] Care Team Providers Care Marine Steam Fitter Helper Name Role Phone Amanda Watkins MD Primary Care Provide r Hiro Ram CD REACTOR OPERATOR Unavailable Unavailable Raad Arias PharmD Unavailable [phone] Encounter Details Date Type Department Care Team (Late st Contact Info) Description 05/29/2025 Orders Only GENERIC EXTERNAL DATA DEPARTMENT [...] 06/08/2025 2:00 PM EDT Telemedicine [facility] MED[facility]INE [address] [place] [address] Kayley Alanis RN 07/09/2025 3:30 PM EST Office Visit [address] [address] Amanda Watkins MD [address] [place] [address] documented as of this encounter Procedures Procedure Name Priority Date/Time Associated Diagnosis Comments GLUCOSE, WHOLE BLOOD Routine 05/29/2025 11:59 PM EDT documented in this encounter Results * (ABNORMAL) Glucose, Whole Blood (05/29/2025 11:59 PM EDT) Glucose, Whole Blood 434(HH) 60 - 115 mg/dL [facility] Comment:METER #: [id number] 05/29/2025 11:5 9 PM EDT 05/30/2025 12:13 AM EDT us Generic External Data Provider LAB BLOOD ORDERAB LES Final Result [facility] [address] [place] [address] [phone] documented in this encounter Visit Diagnoses Not on filedocumented in this encounter Additional Health Concerns Assessment Noted Time PHQ-9 Depression Total Score: 14 025 2:41 PM EDT documented as of this encounter Care Teams Marine Steam Fitter Helper Relationship Specialty Start Date End Date Amanda Watkins MD [address] [place] [address] PCP - General Family Medicine 04/07/19 Hiro Ram FNP [address] [place] [address] Nurse Practitioner Family Medicine 07/06/23 Raad Arias, TheaD [address] [place] [address] Pharmacist Internal Medicine 10/19/24 [facility] 03/08/25 documented as of this encounter
--- OUTSIDE RECORDS SUMMARY | 2025-06-03 08:04 | XMS_ITS | Encounter Summary ---
Author Organization [employer] Address [address] [facility] 7t [place] [address] Care Team Providers Care Superintendent Name Role Phone Amanda Watkins MD Primary Care Provide r Hiro Ram DIE MAKER ELECTRONIC Unavailable Unavailable Raad Arias PharmD Unavailable [phone] Encounter Details Date Type Department Care Team (Late st Contact Info) Description 06/27/2024 Orders Only [facility] MEDICINE [address] [place] [address] Amanda Watkins MD [address] [place] [address] Social History Tobacco Use Types Packs/Day Years [...] 2:00 PM EDT Telemedicine [facility] MED[facility]INE [address] [place] [address] Kayley Alanis RN 07/09/2025 3:30 PM EST Office Visit [facility] [address] [place] [address] Amanda Watkins MD [address] [place] [address] documented as of this encounter Visit Diagnoses Not on filedocumented in this encounter Additional Health Concerns Assessment Noted Time PHQ-9 Depression Total Score: 10 024 3:23 PM EDT documented as of this encounter Care Teams Superintendent Relationship Specialty Start Date End Date Amanda Watkins MD [address] [place] [address] PCP - General Family Medicine 04/07/19 Hiro Ram FNP [address] [place] [address] Nurse Practitioner Family Medicine 07/06/23 Raad Arias, TheaD [address] [place] [address] Pharmacist Internal Medicine 10/19/24 [facility] 07/03/22 08/16/24 Ja ARCE 08/10/24 03/12/25 [facility] 03/08/25 documented as of this encounter
--- OUTSIDE RECORDS SUMMARY | 2025-06-03 08:04 | XMS_ITS | Encounter Summary ---
Author Organization [employer] Address [address] [facility] 7t [place] [address] Care Team Providers Care Gas Station Manager Name Role Phone Amanda Watkins MD Primary Care Provide r Hiro Ram DOPE MIXER Unavailable Unavailable Raad Arias PharmD Unavailable [phone] Reason for Visit * Reason Onset Date Comments Hospital Follow-up 04/04/2024 Encounter Details Date Type Department Care Team (Late st Contact Info) Description 04/04/2024 Telephone [facility] [address] [place] [address] Amanda Watkins MD [address] [place], [place] [phone] Hospital Follow-up Social History Tobacco Use Types [...] from pt requesting a HDF appt. Hospital: [facility] Date of admission: 03/18 Discharge date: 03/21 Diagnosed: Cellulitis documented in this encounter Plan of Treatment Upcoming Encounters Date Type Department Care Team (Late st Contact Info) Description 06/08/2025 2:00 PM EDT Telemedicine [facility] MED[facility]INE [address] [place] [address] Kayley Alanis RN 07/09/2025 3:30 PM EST Office Visit [facility] [address] [place] [address] Amanda Watkins MD [address] [place] [address] documented as of this encounter Visit Diagnoses Not on filedocumented in this encounter Additional Health Concerns Assessment Noted Time PHQ-9 Depression Total Score: 10 024 3:23 PM EDT documented as of this encounter Care Teams Gas Station Manager Relationship Specialty Start Date End Date Amanda Watkins MD [address] [place] [address] PCP - General Family Medicine 04/07/19 Hiro Ram FNP [address] [place] [address] Nurse Practitioner Family Medicine 07/06/23 Raad Arias, TheaD [address] [place] [address] Pharmacist Internal Medicine 10/19/24 [facility] 07/03/22 08/16/24 Ja [facility] 08/10/24 03/12/25 [facility] 03/08/25 documented as of this encounter
--- OUTSIDE RECORDS SUMMARY | 2025-06-03 08:04 | XMS_ITS | Encounter Summary ---
Author Organization [employer] Address [address] [facility] 7t [place] [address] Care Team Providers Care Employee Benefits Director Name Role Phone Amanda Watkins MD Primary Care Provide r Hiro Ram CLINICAL TRIALS ASSISTANT Unavailable Unavailable Raad Arias PharmD Unavailable [phone] Reason for Visit * Reason Onset Date Comments Pt cancelled Tele STEEL LAYOUT WORKER RV at check in 04/13/2025 Review message from PCP 04/16/25 re missed STEEL LAYOUT WORKER lidya t 04/13/2025 Med Refill 04/13/2025 Encounter Details Date Type Department Care Team (Late st Contact Info) Description 04/13/2025 Refill [facility]INE [address] [place] [address] Fab Alanis RN Chronic bilateral low back [...] discontinue her oxycodone thank you. TC via P/I#[id number], no answer. L/M asking her to call back to review message from PCP regarding missed appt Wednesday. * Telephone Encounter - Fab Alanis RN - 04/13/2025 11:54 AM EDT Pt cancelled STEEL LAYOUT WORKER RV Tele appt today at check in. TC via P/I#[id number], no answer. Left message asking patient to call back to reschedule. Will update PCP. * Telephone Encounter - Fab Alanis RN - 04/13/2025 10:49 AM EDT Pt cancelled Tele STEEL LAYOUT WORKER RV appt at check in. service desk director called patient for checkin for Tele STEEL LAYOUT WORKER appt. Pt stated she had an emergency and couldn't speak on the phone. documented in this encounter Plan of Treatment Upcoming Encounters Date Type Department Care Team (Late st Contact Info) Description 06/08/2025 2:00 PM EDT Telemedicine [address] [address] Fab Alanis RN 07/09/2025 3:30 PM EST Office Visit [address] [address] Amanda Watkins MD [address] [place] [address] documented as of this encounter Visit Diagnoses Diagnosis Chronic bilateral low back pain with bilateral sciatica- Primary documented in this encounter Additional Health Concerns Assessment Noted Time PHQ-9 Depression Total Score: 14 025 2:41 PM EDT documented as of this encounter Care Teams Employee Benefits Director Relationship Specialty Start Date End Date Amanda Watkins MD [address] [place] [address] PCP - General Family Medicine 04/07/19 Hiro Ram FNP [address] [place] [address] Nurse Practitioner Family Medicine 07/06/23 Raad Arias, TheaD [address] [place] [address] Pharmacist Internal Medicine 10/19/24 [facility] 03/08/25 documented as of this encounter
--- OUTSIDE RECORDS SUMMARY | 2025-06-03 08:04 | XMS_ITS | Encounter Summary ---
Author Organization [employer] Address [address] [facility] 7t [place] [address] Care Team Providers Care Car Supplier Name Role Phone Amanda Watkins MD Primary Care Provide r Hiro Ram INSPECTOR CASING Unavailable Unavailable Raad Arias PharmD Unavailable [phone] Encounter Details Date Type Department Care Team (Late st Contact Info) Description 12/22/[address] [facility] MEDICINE [address] [place] [address] Amanda Watkins MD [address] [place] [address] Social History Tobacco Use Types Packs/Day Years [...] Info) Description 06/08/2025 2:[address] [facility] [address] [place] [address] Kayley Alanis RN 07/09/2025 3:30 PM EST Office Visit [facility] [address] [place] [address] Amanda Watkins MD [address] [place] [address] documented as of this encounter Procedures Procedure [...] AM EDT Narrative 01/05/2025 9:59 AM EDT [address] [address] XRay Report Signed Patient: Mary Lou Godwin Z MR#: M [id number] : 1950 Acct:[id number] Age/Sex: 74 / F ADM Date: 01/05/25 Loc: HO.ED Attending Dr: Ordering Physician: Yelena Alvarez MD Date of Service: 01/05/25 Procedure(s): XR humerus RT Accession Number(s): [id number] cc: Amanda Watkins MD; Yelena Alvarez MD [...] 01/05/25 0956 DD/ 0935 TD/TT: 01/05/25 0948 Network Account Manager: Procedure Note Donotuseinterpreter, Image - 01/05/[address] [address] XRay Report Signed Patient: Mary Lou Godwin ZMR#: M [id number] : 1950cct:[id number] Age/Sex: 74 / FADM Date: 01/05/25 Loc: .ED Attending Dr: Ordering Physician: Yelena Alvarez MD Date of Service: 01/05/25 Procedure(s): XR humerus RT Accession Number(s): [id number] cc: Amanda Watkins MD; Yelena Alvarez MD [...] MD in OV> 01/05/25 0956 DD/ TD/TT: 01/05/2548 Network Account Manager: [facility] External Provider IMG XR PROCEDURES Edited Result - Final * XR Shoulder 2+ Views Right (01/05/2025 8:27 AM EDT) Anatomical Region Laterality Modality Upper Extremities, Shoulder Right Radi ographic Imaging 01/05/2025 8:27 AM EDT Narrative 01/05/2025 9:59 AM EDT [place] [address] XRay Report Signed Patient: Mary Lou Godwin MR#: [id number] : 1950 Acct:[id number] Age/Sex: 74 / F ADM Date: 01/05/25 Loc: HO.ED Attending Dr: Ordering Physician: Yelena Alvarez MD Date of Service: 01/05/25 Procedure(s): XR shoulder RT min 2V Accession Number(s): [id number] cc: Amanda Watkins MD; Yelena Alvarez MD [...] in OV> 01/05/25955 DD/ 6 TD/TT: 01/05/25947 Network Account Manager: Procedure Note Donotuseinterpreter, Image - 01/05/[address] [address] XRay Report Signed Patient: Mary Lou Godwin ZMR#: M [id number] : 9Acct:[id number] Age/Sex: 74 / FADM Date: 01/05/25 Loc: HO.ED Attending Dr: Ordering Physician: Yelena Alvarez MD Date of Service: 01/05/25 Procedure(s): XR shoulder RT min 2V Accession Number(s): [id number] cc: Amanda Watkins MD; Yelena Alvarez MD [...] in OV> 01/05/25955 DD/ 6 TD/TT: 01/05/25947 Network Account Manager: [facility] External Provider IMG XR PROCEDURES Edited Result - Final * XR Elbow 1-2 Views Right (01/05/2025 8:27 AM EDT) Anatomical Region Laterality Modality Upper Extremities, Elbow Right Radiogr aphic Imaging 01/05/2025 8:27 AM EDT Narrative 01/05/2025 9:57 AM EDT [address] [address] XRay Report Signed Patient: Mary Lou Godwin Z MR#: M [id number] : 1950 Acct:[id number] Age/Sex: 74 / F ADM Date: 01/05/25 Loc: HO.ED Attending Dr: Ordering Physician: Yelena Alvarez MD Date of Service: 01/05/25 Procedure(s): XR elbow RT 2V Accession Number(s): [id number] cc: Amanda Watkins MD; Yelena Alvarez MD [...] 01/05/25 0954 DD/ 0827 TD/TT: 01/05/25 0948 Network Account Manager: Procedure Note Donotuseinterpreter, Image - 01/05/[address] [address] XRay Report Signed Patient: Mary Lou Godwin ZMR#: M [id number] : 1950cct:[id number] Age/Sex: 74 / FADM Date: 01/05/25 Loc: HO.ED Attending Dr: Ordering Physician: Yelena Alvarez MD Date of Service: 01/05/25 Procedure(s): XR elbow RT 2V Accession Number(s): [id number] cc: Amanda Watkins MD; Yelena Alvarez MD [...] OV> 01/05/25 0954 DD/ TD/TT: 01/05/25 0948 Network Account Manager: [facility] External Provider IMG XR PROCEDURES Edited Result - Final documented in this encounter Visit Diagnoses Not on filedocumented in this encounter Additional Health Concerns Assessment Noted Time PHQ-9 Depression Total Score: 0 09/01/19 1:18 PM EST documented as of this encounter Care Teams Car Supplier Relationship Specialty Start Date End Date Amanda Watkins MD [address] [place] [address] PCP - General Family Medicine 04/07/19 Hiro Ram FNP [address] [place] [address] Nurse Practitioner Family Medicine 07/06/23 Raad Arias PharmD [address] [place] [address] Pharmacist Internal Medicine 10/19/24 [facility] 08/10/24 03/12/25 [facility] 03/08/25 documented as of this encounter
--- OUTSIDE RECORDS SUMMARY | 2025-06-03 08:04 | XMS_ITS | Encounter Summary ---
Author Organization [employer] Address 75 [facility] 7t [place] [address] Care Team Providers Care Objective C Developer Name Role Phone Amanda Watkins MD Primary Care Provide r Hiro Ram FORKLIFT TRUCK OPERATOR Unavailable Unavailable Raad Arias PharmD Unavailable [phone] Reason for Visit * Reason Onset Date Comments Nurse Triage 04/17/2025 Encounter Details Date Type Department Care Team ([facility] st Contact Info) Description 04/17/2025 Telephone [facility] [address] [place] [address] Amanda Watkins MD [address] [place] [address] Nurse Triage Social History Tobacco Use Types [...] Mary Lou Cisneros to triage below at [phone]. No answer, line not available. . Call to all other alterante numbers. Left VM to return call. Number listed as contact in [facility] visit notes as [phone]. No answer, LVM to return call to [facility] triage line. Pt has my chart [...] crying screaming in pain. Contact musa at [phone] documented in this encounter Plan of Treatment Upcoming Encounters Date Type Department Care Team (Late st Contact Info) Description 06/08/2025 2:00 PM EDT Telemedicine [facility] [address] [place] [address] Kayley Alanis RN 07/09/2025 3:30 PM EST Office Visit [facility] [address] [place] [address] Amanda Watkins MD [address] [place] [address] documented as of this encounter Visit Diagnoses Not on filedocumented in this encounter Additional Health Concerns Assessment Noted Time PHQ-9 Depression Total Score: 14 025 2:41 PM EDT documented as of this encounter Care Teams Objective C Developer Relationship Specialty Start Date End Date Amanda Watkins MD [address] [place] [address] PCP - General Family Medicine 04/07/19 Hiro Ram FNP [address] [place] [address] Nurse Practitioner Family Medicine 07/06/23 Raad Arias, TheaD [address] [place] [address] Pharmacist Internal Medicine 10/19/24 [facility] 03/08/25 documented as of this encounter
--- OUTSIDE RECORDS SUMMARY | 2025-06-03 08:04 | XMS_ITS | Encounter Summary ---
Author Organization [employer] Address 75 [facility] 7t [place] [address] Care Team Providers Care Appliance Worker Name Role Phone Amanda Watkins MD Primary Care Provide r Hiro Ram METEOROLOGY INSTRUCTOR Unavailable Unavailable Raad Arias PharmD Unavailable [phone] Reason for Visit * Reason Onset Date Comments Schedule Tele BACK PAD INSPECTOR RV 05/31/2025 Encounter Details Date Type Department Care Team (Late st Contact Info) Description 05/31/2025 Telephone [facility] [address] [place] [address] Kayley Alanis, RN Schedule Tele BACK PAD INSPECTOR RV Social History Tobacco Use Types Packs/Day Years [...] Telephone Encounter - Kayley Alanis RN - 05/31/2025 11:46 AM EDT TC via P/I#[id number], spoke with daughter, Tele BACK PAD INSPECTOR RV appointment scheduled for 06/08/25 @ 2pm. documented in this encounter Plan of Treatment Upcoming Encounters Date Type Department Care Team (Late st Contact Info) Description 06/08/2025 2:00 PM EDT Telemedicine [facility] [address] [place] [address] Kayley Alanis RN 07/09/2025 3:30 PM EST Office Visit [facility] [address] [place] [address] Amanda Watkins MD [address] [place] [address] documented as of this encounter Visit Diagnoses Not on filedocumented in this encounter Additional Health Concerns Assessment Noted Time PHQ-9 Depression Total Score: 14 025 2:41 PM EDT documented as of this encounter Care Teams Appliance Worker Relationship Specialty Start Date End Date Amanda Watkins MD [address] [place] [address] PCP - General Family Medicine 04/07/19 Hiro Ram FNP [address] [place] [address] Nurse Practitioner Family Medicine 07/06/23 Raad Arias, TheaD [address] [place] [address] Pharmacist Internal Medicine 10/19/24 [facility] 03/08/25 documented as of this encounter
--- OUTSIDE RECORDS SUMMARY | 2025-06-03 08:04 | XMS_ITS | Encounter Summary ---
Author Organization [employer] Address [address] [facility] [address] [place] [address] Care Team Providers Care Audit Tech Name Role Phone Amanda Watkins MD Primary Care Provide r Hiro Ram ORDNANCE TRUCK INSTALLATION MECHANIC Unavailable Unavailable Raad Arias PharmD Unavailable [phone] Reason for Visit * Reason Onset Date Comments Hospital Follow-up 03/23/2024 Encounter Details Date Type Department Care Team (Late st Contact Info) Description 03/23/2024 Telephone [facility] [address] [place] [address] Amanda Watkins MD [address] [place], [place] [phone] Hospital Follow-up Social History Tobacco Use Types [...] from pt requesting a HDF appt. Hospital: [facility] Date of admission: 03/18 Discharge date: 03/21 Diagnosed: Cellulitis documented in this encounter Plan of Treatment Upcoming Encounters Date Type Department Care Team (Late st Contact Info) Description 06/08/2025 2:00 PM EDT Telemedicine [facility] [address] [place] [phone] Kayley Alanis RN 07/09/2025 3:30 PM EST Office Visit [facility] [address] [place] [phone] Amanda Watkins MD [address] [place] [phone] documented as of this encounter Visit Diagnoses Not on filedocumented in this encounter Additional Health Concerns Assessment Noted Time PHQ-9 Depression Total Score: 10 024 3:23 PM EDT documented as of this encounter Care Teams Audit Tech Relationship Specialty Start Date End Date Amanda Watkins MD [address] [place] [phone] PCP - General Family Medicine 04/07/19 Hiro Ram FNP [address] [place] [phone] Nurse Practitioner Family Medicine 07/06/23 Raad Arias, TheaD [address] [place] [phone] Pharmacist Internal Medicine 10/19/24 [facility] 07/03/22 08/16/24 Ja [facility] 08/10/24 03/12/25 [facility] 03/08/25 documented as of this encounter
--- OUTSIDE RECORDS SUMMARY | 2025-06-03 08:04 | XMS_ITS | Encounter Summary ---
Author Organization [employer] Address [address] [facility] [address] [place] [address] Care Team Providers Care Homogenizer Operator Name Role Phone Amanda Watkins MD Primary Care Provide r Hiro Ram TRAINING FACILITATOR Unavailable Unavailable Raad Arias PharmD Unavailable [phone] Encounter Details Date Type Department Care Team (Late st Contact Info) Description 05/30/2025 Orders Only GENERIC EXTERNAL DATA DEPARTMENT [...] Info) Description 06/08/2025 2:00 PM EDT Telemedicine [facility] [address] [place] [phone] Kayley Alanis RN 07/09/2025 3:30 PM EST Office Visit [facility] [address] [place] [phone] Amanda Watkins MD [address] [place] [phone] documented as of this encounter Procedures Procedure [...] EDT SALICYLATE Routine 05/30/2025 12:14 AM EDT documented in this encounter Results * (ABNORMAL) Glucose, Whole Blood (05/30/2025 7:39 AM EDT) Glucose, Whole Blood 285(H) 60 - 115 mg/dL [facility] Comment:METER #: [id number] 05/30/2025 7:39 AM EDT 05/30/2025 7:43 AM EDT us Generic External Data Provider LAB BLOOD ORDERAB LES Final Result [facility] [address] [place] [phone] * (ABNORMAL) Urinalysis, Complete, with Reflex to Culture (05/30/2025 5:57 AM EDT) Color Urine Yellow [facility] Appearance Urine Clear [facility] PH 8.0 5.0 - 9.0 [facility] Glucose Urine UA >=1000(A) Negative mg/dL [facility] Urine Blood Negative Negative [facility] Specific [place] - Urine 1.015 1.005 - 1.025 [facility] Urine Protein Negative Neg-Trace mg/dL [facility] Urine Ketones Negative Negative mg/dL [facility] Nitrite Urine Negative Negative [facility] Leukocyte Esterase Urine Negative Negative [facility] RBC Urine 0-2 0 - 2 /HPF [facility] Urine WBC 0-5 0 - 5 /HPF [facility] Urine Squamous Epithelial Cell 0-2 0 - 2 /HPF [facility] Urine Bacteria None Seen None Seen [facility] Hyaline Casts, Urine 0-2 0 - 2 /LPF [facility] 05/30/2025 5:57 AM EDT 05/30/2025 6:04 AM EDT Narrative [facility] - 05/30/2025 6:36 AM EDT [id number], [employer] us Generic External Data Provider LAB URINE ORDERAB LES Final Result [facility] [address] [place] [address] [phone] * (ABNORMAL) Drug Monitoring, Panel 1, Screen, Urine (05/30/2025 5:56 AM EDT) Opiate Screen Urine Not Detected Not Detect [facility] Comment:Opiate cut-off is 30 0 ng/mL.Positive results are unconfirmed and should not be used fornon-medical purposes. Barbiturates, Urine Not Detected Not Detect [facility] Comment:Barbiturate cut-off is 200 ng/mL.Positive results are unconfirmed and should not be used fornon-medical purposes. Phencyclidine Screen Urine Not Detected Not Detect [facility] Comment:Phencyclidine cut-of f is 25 ng/mL.Positive results are unconfirmed and should not be used fornon-medical purposes. Amphetamine Screen Urine Not Detected Not Detect [facility] Comment:Amphetamine cut-off is 1000 ng/mL.Positive results are unconfirmed and should not be used fornon-medical purposes. Benzodiazepines Screen Urine Not Detected Not Detect [facility] Comment:Benzodiazepine cut-o ff is 200 ng/mL.Positive results are unconfirmed and should not be used fornon-medical purposes. Cocaine Screen Urine Not Detected Not Detect [facility] Comment:Cocaine cut-off is 3 00 ng/mL.Positive results are unconfirmed and should not be used fornon-medical purposes. Cannabinoid Screen Urine Not Detected Not Detect [facility] Comment:Cannabinoid cut-off is 50 ng/mL.Positive results are unconfirmed and should not be used fornon-medical purposes. Methadone Screen, Urine Not Detected Not Detect ng/mL [facility] Comment:Methadone cut-off is 300 ng/mL.Positive results are unconfirmed and should not be used fornon-medical purposes. FENTANYL URINE Not Detected Not Detect [facility] Comment:Fentanyl cut-off is 1 ng/mL.Positive results are unconfirmed and should not be used fornon-medical purposes. Oxycodone Urine Screen Positive(A) Not Detect ng/mL [facility] Comment:Oxycodone cut-off is 100 ng/mL.Positive results are unconfirmed and should not be used fornon-medical purposes. Buprenorphine Screen Not Detected Not Detect ng/mL [facility] Comment:Buprenorphine cut-of f is 5 ng/mL.Positive results are unconfirmed and should not be used fornon-medical purposes. 05/30/2025 5:56 AM EDT 05/30/2025 6:04 AM EDT Generic External Data Provider LAB URINE ORDERAB LES Final Result Performing Organization Address [facility]/ZIP Co de Phone Number [facility] [address] [place] [phone] * (ABNORMAL) Glucose, Whole Blood (05/30/2025 2:57 AM EDT) Glucose, Whole Blood 386(HH) 60 - 115 mg/dL [facility] Comment:METER #: [id number] 05/30/2025 2:57 AM EDT 05/30/2025 3:00 AM EDT Generic External Data Provider LAB BLOOD ORDERAB LES Final Result Performing Organization Address [facility]/ZIP Co de Phone Number [facility] [address] [place] [phone] * (ABNORMAL) VENOUS BLOOD GAS (05/30/2025 12:19 AM EDT) VBG pH 7.43 7.32 - 7.43 [facility] Comment:METER #: [id number] additional_comment: Cb tetreak VBG PCO2 55 mmHg [facility] Comment:METER #: [id number] additional_comment: Cb tetreak VBG PO2 98 mmHg [facility] Comment:METER #: [id number] additional_comment: Cb tetreak VBG Base Excess 11.6 mmol/L [facility] Comment:METER #: [id number] additional_comment: Huseyin reyes VBG HCO3 37(H) 22 - 26 mmol/L [facility] Comment:METER #: [id number] additional_comment: Huseyin reyes O2 Sat, Samuel 95.0 % [facility] Comment:METER #: [id number] additional_comment: Cb eric 05/30/2025 12:1 9 AM EDT 05/30/2025 12:26 AM EDT us Generic External Data Provider LAB BLOOD ORDERAB LES Final Result Performing Organization Address [facility]/ZIP Co de Phone Number [facility] [address] [place] [phone] * Acetaminophen level (05/30/2025 12:14 AM EDT) Acetaminophen LAB <3 <30 mcg/mL [facility] 05/30/2025 12:1 4 AM EDT 05/30/2025 12:18 AM EDT us Generic External Data Provider LAB BLOOD ORDERAB LES Final Result Performing Organization Address [facility] Co de Phone Number [facility] [address] [place] [address] [phone] * (ABNORMAL) Salicylate (05/30/2025 12:14 AM EDT) Salicylate <5.0(L) 15 - 30 mg/dL [facility] 05/30/2025 12:1 4 AM EDT 05/30/2025 12:18 AM EDT us Generic External Data Provider LAB BLOOD ORDERAB LES Final Result Performing Organization Address [facility] Co de Phone Number [facility] [address] [place] [phone] documented in this encounter Visit Diagnoses Not on filedocumented in this encounter Additional Health Concerns Assessment Noted Time PHQ-9 Depression Total Score: 14 025 2:41 PM EDT documented as of this encounter Care Teams Homogenizer Operator Relationship Specialty Start Date End Date Amanda Watkins MD [address] [place] [phone] PCP - General Family Medicine 04/07/19 Hiro Ram FNP [address] [place] [address] [phone] Nurse Practitioner Family Medicine 07/06/23 Raad Arias, TheaD [address] [place] [address] [phone] Pharmacist Internal Medicine 10/19/24 [facility] 03/08/25 documented as of this encounter
--- NOTE | 2025-06-03 08:49 | ED.FALL ---
HPI - Fall General Chief Complaint: Fall Stated Complaint: L ARM PAIN Time Seen by Provider: 06/03/25 08:32 Source: patient and RN notes reviewed Mode of arrival: ambulatory Limitations: no limitations History of Present Illness ED Provider: Kristi Delvalle PA-C HPI Narrative: 74-year-old female with medical history of CKD stage 3, type 2 diabetes, HLD, HTN, CAD, HfPef, osteoporosis, arthritis, asthma, fibromyalgia, anemia, bradycardia, MDD, ANILA, on 2L NC at baseline, who presents emergency department with concerns of fall which occurred yesterday. Patient states that while she was in the bathroom, she was standing up and ?lost her balance? and fell onto her left arm. She states that she was able to get herself up whenever she has had ongoing left arm pain. She denies hitting her head or LOC. She denies any dizziness, blurred vision, chest pain or shortness for breath prior to this episode. She states that she often times loses her balance and this was similar to these episodes she has had in the past. She denies any headache, dizziness, blurred vision, double vision, chest pain, shortness of breath, abdominal pain, nausea, vomiting or diarrhea. She states that she lives home alone, and typically gets around via wheelchair. She states that she took Percocet yesterday however she no longer has this medication at home. Denies taking any medications at home to treat her current pain. No other complaints or concerns at this time. MD complaint: fall Onset (ago): day(s) Fall from: wheelchair Fall witnessed: no Place fall occurred: home Loss of consciousness: none Prolonged down time: no Related Data Home Medications ?Medication ?Instructions ?Recorded ?Confirmed atorvastatin 80 mg tablet 80 mg PO BEDTIME 04/07/21 04/18/25 duloxetine 20 mg capsule,delayed 20 mg PO DAILY 03/18/24 04/18/25 release omeprazole 40 mg capsule,delayed 40 mg PO DAILY@0630 03/18/24 04/18/25 release trazodone 150 mg tablet 150 mg PO BEDTIME 10/06/24 04/18/25 calcium carbonate (Oyster Shell 500 mg PO BID 12/06/24 04/18/25 Calcium 500) hydroxyzine HCl 25 mg tablet 25 mg PO Q8H PRN anxiety 12/06/24 04/18/25 albuterol sulfate 2.5 mg/3 mL 2.5 mg inhalation Q6H PRN 03/04/25 04/18/25 (0.083 %) solution for nebulization Shortness Of Breath Or Wheezing albuterol sulfate 90 mcg/actuation 2 puff inhalation QID PRN 03/04/25 04/18/25 aerosol inhaler Shortness Of Breath Or Wheezing gabapentin 300 mg capsule 300 mg PO BID 03/04/25 04/18/25 aspirin 81 mg tablet,delayed 81 mg PO QAM 04/18/25 04/18/25 release cyclobenzaprine 5 mg tablet 5 mg PO TID 04/18/25 04/18/25 docusate sodium 100 mg capsule 100 mg PO BID 04/18/25 04/18/25 insulin degludec 200 unit/mL (3 67 unit subcut DAILY 04/18/25 04/18/25 mL) subcutaneous pen (Tresiba FlexTouch U-200 insulin) melatonin 5 mg tablet 5 mg PO BEDTIME 04/18/25 04/18/25 tirzepatide 5 mg/0.5 mL 5 mg subcut FR 04/18/25 04/18/25 subcutaneous pen injector (Lamont) Previous Rx's ?Medication ?Instructions ?Recorded apixaban 5 mg tablet (Eliquis) 5 mg PO BID #60 tabs 11/03/23 amlodipine 5 mg tablet 5 mg PO DAILY #30 tabs 06/20/24 torsemide 20 mg tablet 20 mg PO DAILY #30 tabs 06/20/24 levothyroxine 100 mcg tablet 100 mcg PO DAILY@0600 #90 tabs 03/07/25 (Synthroid) ferrous fumarate 324 mg (106 mg 324 mg PO DAILY #90 tabs 03/22/25 iron) tablet acetaminophen 325 mg tablet 650 mg (2 x 325 mg) PO Q6H PRN 04/20/25 Pain, Mild 1-3,Fever,Headache 30 days #240 tabs oxycodone 5 mg tablet 5 mg PO Q6H PRN pain 7 days #28 04/20/25 tabs cephalexin 500 mg capsule 500 mg PO BID 7 days #14 caps 05/23/25 doxycycline hyclate 100 mg capsule 100 mg PO BID 7 days #14 caps 05/23/25 oxycodone-acetaminophen 5 mg-325 1 tab PO Q8H PRN severe pain 06/03/25 mg tablet (Percocet) (scale score 7-10) #6 tabs Allergies Allergy/AdvReac Type Severity Reaction Status Date / Time codeine (CODEINE) Allergy Intermediate HALLUCINATI Verified 06/03/25 07:54 ONS Review of Systems Review of Systems: Constitutional : No Fever, No Chills ENT/Mouth : No sore throat, No Rhinorrhea Eyes: No Eye Pain, No Swelling, No Redness Cardiovascular : No Chest Pain, No SOB Respiratory : No Cough, No Sputum Gastrointestinal : No Nausea, No Vomiting, No Diarrhea, No abdominal Pain Genitourinary : No Dysuria, No Hematuria Musculoskeletal : No joint pain, No Myalgias, No Joint Swelling Skin : No Skin Lesions Neuro : No Weakness, No Numbness, No Headache All other systems reviewed and are negative Yes all other systems are reviewed and are negative Constitutional: Constitutional: Reports as per [facility] Past Medical History Medical History Septic joint of right shoulder region Septic arthritis Urinary incontinence (HFpEF) heart failure with preserved ejection fraction Anxiety Insomnia CKD (chronic kidney disease) CKD stage 3 due to type 2 diabetes mellitus Leg abrasion Abuse of non-prescription analgesics Type 2 diabetes mellitus with unspecified complications Other and unspecified hyperlipidemia Essential hypertension Atherosclerotic cardiovascular disease Urgency incontinence Osteoporosis Arthritis Asthma Hypertension Fibromyalgia Diabetes mellitus Surgical History H/O tubal ligation History of hernia repair Social History Social History Household Members: Children Household Members Other:: son Housing: Apartment Are you a primary career coach to a significant other at home: No Do you presently have visiting nurse or other home services: No Alcohol intake: never 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 Patient Tobacco Use Status: Never used Tobacco Smoked in Last 30 Days: No e-Cigarette/Vaping Use: Never Used Use of substances other than those prescribed or required for medical reasons: No Advance Directives: Yes Advance Directives on File: Yes Advance Directives Date on File: 04/07/24 service: No Sexual orientation: Straight/Heterosexual Physical Exam Vital Signs: Vital Signs: Last Vital Signs Temp 98.3 F 06/03/25 12:07 Pulse 67 06/03/25 12:07 Resp 16 06/03/25 12:07 BP 112/57 L 06/03/25 12:07 Pulse Ox 100 06/03/25 12:07 O2 Del Method Nasal Cannula 06/03/25 12:07 O2 Flow Rate 2 06/03/25 10:10 BMI result Body Mass Index 42.8 Const: General: cooperative, comfortable and no acute distress Orientation/consciousness: patient oriented x3 Limitations: no limitations HEENT: Head: Yes normal to inspection, Yes normocephalic and Yes atraumatic Ears: hearing grossly normal bilaterally General nose exam: Normal external nose present Face and sinus: Yes normal facial exam Mouth: Normal oral and palatal mucosa present, oropharynx normal and moist mucous membranes Throat: Yes posterior oropharynx normal Eyes: General: appearance normal, both eyes and all related structures Eyelids: Yes eyelids normal Conjunctivae: conjunctivae normal Sclerae: sclerae normal Pupils: Equal, round and reactive pupils present EOM: EOMs intact bilaterally Neck: Other: No midline spine tenderness on exam patient. Neck: Yes normal visual inspection, Yes full ROM and Yes no lymphadenopathy Lymphatic: no lymphadenopathy noted Chest: Chest palpation & inspection: normal inspection of the chest Resp: Effort & Inspection: normal respiratory effort and able to speak in complete sentences Auscultation: clear to auscultation bilaterally, no crackles, no rales, no rhonchi and no wheezes Cardio: Rate: regular rate Rhythm: regular rhythm Heart sounds: S1 normal heart sound present and S2 normal heart sound present GI: Other: Abdomen is soft, nontender, nondistended, no ecchymosis seen. Inspection: Yes normal to inspection Skin: General skin exam: no rashes or lesions noted Trauma: no lacerations or abrasions Wounds: no wounds Neuro: General: patient oriented x3 and moves all extremities Cranial nerves: Yes Equal, round and reactive pupils present Extrem: Other: Left shoulder with no obvious bony deformity or swelling. No open wounds or lacerations. She has diffuse tenderness throughout the left shoulder even to light palpation. Decreased range of motion secondary to pain. She has a strong left radial pulse. Arm is well perfused. She does have tenderness palpation along the distal radius and ulna. Able to move all digits without difficulty. General: Yes normal to inspection Right upper extremity: normal to inspection Left upper extremity: normal to inspection Right lower extremity: normal to inspection Left lower extremity: normal to inspection Medications Administered Discontinued Medications Generic Name Dose Route Start Last Admin Trade Name Elkin PRN Reason Stop Dose Admin Acetaminophen 1,000 mg in 100 mls @ 400 mls/hr 06/03/25 09:02 06/03/25 12:23 Ofirmev IV 06/03/25 09:16 Infused ONCE ONE Infusion Morphine Sulfate 4 mg 06/03/25 09:02 06/03/25 09:18 Morphine Sulfate 10 Mg/Ml Cartridge IVPUSH 06/03/25 09:03 4 mg ONCE ONE Administration Protocol Medical Decision Making Medical Decision Making MDM Narrative: 74-year-old female with medical history of CKD stage 3, type 2 diabetes, HLD, HTN, CAD, HfPef, osteoporosis, arthritis, asthma, fibromyalgia, anemia, bradycardia, MDD, ANILA, who presents emergency department with concerns of fall which occurred yesterday. On arrival, blood pressure 125/54, all other vital signs within normal limits. She is speaking full sentences under no acute distress. She is neurologically intact under no acute distress. Patient with tenderness palpation along the left shoulder and left wrist diffusely, strong radial pulse. She had no head strike or LOC. Differential diagnoses include ICH, fracture, contusion, sprain, strain. Also obtaining basic labs to rule out any significant electrolyte derangement as well as atypical ACS given past medical history in her ?losing her balance? although this is low on my differential. Will medicate patient with Tylenol as well as morphine given patient is tearful complaining of pain. 12:31 PM 06/03/2025 (Kristi Delvalle PA-C): No leukocytosis, stable H&H, noted to have a normocytic anemia, which she has a history of. Chemistry revealing hyperglycemia at 342. Troponin is 9. Normal sinus rhythm at a ventricular rate of 63 beats per minute. No ST-elevation or depression. Head CT and cervical spine CT revealing no acute findings. Shoulder x-ray unremarkable. Wrist x-ray unremarkable. Patient re-evaluated, she states that she is feeling better after receiving the medication. Given her overall workup today, reassuring. Patient reporting that she is not currently on Percocet, and states that she has a difficult time getting into contact with her PCP. Stressed that she should be just taking Tylenol for her pain, and that long-term management of pain control with Percocet is not warranted. Discussed that we can only limit her she has several tablets and she should only reserved as for severe pain only. She understands and agrees with this plan. She was given strict return precautions, patient stable for discharge. Differential Diagnosis Differential Diagnoses: The differential diagnosis associated with the presentation includes See above Admission/Observation Consideration of admission/observation: Escalation of care including admission/observation considered Lab Data [facility] Lab Attestation statement: I reviewed the patient's lab results. See [facility] 06/03/25 10:06 06/03/25 10:06 Labs: Lab Results 06/03/25 Range/Units 10:06 WBC 4.8 (4.8-10.8) X10*3/uL RBC 4.02 L (4.20-5.50) X10*6/uL Hgb 10.9 L (12.0-16.0) g/dl Hct 33.8 L (37.0-47.0) % MCV 84.1 (80.0-98.0) fL MCH 27.1 (27.0-33.0) pg MCHC 32.2 (31.0-35.0) g/dl RDW 16.3 H (11.0-16.0) % Plt Count 183 (160-400) X10*3/uL MPV 10.9 (9.4-12.3) fL Immature Gran % (Auto) 0.2 (0.0-0.4) % Neut % (Auto) 66.8 (45-73) % Lymph % (Auto) 21.7 (20-40) % [place] % (Auto) 6.9 (2-11) % Eos % (Auto) 3.8 (0-4) % Baso % (Auto) 0.6 (0-2) % Lymph # (Auto) 1.0 L (1.2-4.9) X10*3/uL [place] # (Auto) 0.3 (0.1-1.2) X10*3/uL Eos # (Auto) 0.2 (0.0-0.4) X10*3/uL Baso # (Auto) 0.0 (0.0-0.2) X10*3/uL Abs Immat Gran (auto) 0.01 (0.00-0.03) X10*3/uL Absolute Neuts (auto) 3.2 (2.0-8.3) x10*3/uL Absolute Nucleated RBC 0.000 (0.0-0.012) X10*3/uL Nucleated RBC % (auto) 0.0 (0.0-0.2) /100WBC Sodium 140 (135-145) mmol/L Potassium 4.4 (3.3-5.1) mmol/L Chloride 101 (96-108) mmol/L Carbon Dioxide 33 H (22-29) mmol/L Anion Gap 10 L (12-20) BUN 33 H (9-16) mg/dL Creatinine 1.44 H (0.5-1.4) mg/dL Estim Creat Clear Calc 40.1 Estimated GFR 35 Random Glucose 342 H (60-115) mg/dL Calcium 8.1 L D (8.4-10.2) mg/dL Total Bilirubin 0.2 (0.0-1.0) mg/dL Direct Bilirubin < 0.2 (0.0-0.5) mg/dL AST 20 (5-31) U/L ALT 18 (0-31) U/L Alkaline Phosphatase 70 (39-117) U/L Troponin I High Sens 9.0 (<3.5-17.0) ng/L Total Protein 6.1 L (6.5-8.0) g/dL Albumin 3.0 L (3.5-5.0) g/dL Independent Interpretation I performed an independent interpretation of an: EKG Interpretation: Normal sinus rhythm at a ventricular rate of 63 beats per minute, WV interval 182, QT QTC 444/454, no STEMI. Radiology Impression Discussion of test interpretation with radiology: I have reviewed the radiologist's reading. Radiologist Impression: CT head without contrast Comparison: CT/SR - CT HEAD WITHOUT IV CONTRAST - 06/22/24 18:04 EST Findings: No intra-axial mass, midline shift, hydrocephalus, or acute hemorrhage. There is mild cortical atrophy. There is no sinus or mastoid fluid. The orbits are within normal limits. There is no acute fracture. IMPRESSION: 1. No acute intracranial findings. This document has been electronically signed by: Domenic De La Cruz MD on 06/03/2025 11:57:35 Dictated By: Domenic De La Cruz MD CT cervical spine without contrast Comparison: None provided Findings: Vertebral alignment is within normal limits. There is severe chronic degenerative disc disease at the C4-5 and C5-6 levels. No acute fractures or dislocations. Visualized intracranial contents are unremarkable. Soft tissues of the neck are normal. Lung apices are clear. IMPRESSION: No acute findings. This document has been electronically signed by: Domenic De La Cruz MD on 06/03/2025 11:40:50 Dictated By: Domenic De La Cruz MD 3 view left shoulder Comparison: None provided Findings: Bones intact. No dislocations. There are degenerative changes with glenohumeral joint space narrowing. No erosions. No radiopaque foreign body. IMPRESSION: 1. No acute findings This document has been electronically signed by: Domenic De La Cruz MD on 06/03/2025 11:39:52 Dictated By: Domenic De La Cruz MD CLINICAL HISTORY: pain s p fall 4 view left wrist Comparison: None provided Findings: Bones intact. No dislocations. No significant loss of joint space, osteophyte, or erosions. No radiopaque foreign body. Vascular calcifications are noted. IMPRESSION: 1. No acute findings This document has been electronically signed by: Domenic De La Cruz MD on 06/03/2025 11:35:53 Dictated By: Domenic De La Cruz MD Discharge Plan Discharge Clinical Impression: Fall, Contusion of left shoulder, Contusion of left wrist Patient Disposition: Home, Self-Care Instructions: Fall Prevention for Older Adults (ED), Contusion in Adults (ED), Fall Prevention (ED) Additional Instructions: You were seen in the emergency department due to a fall. Your overall workup today was reassuring. You need to follow-up with your primary care physician regarding this visit. Please take Tylenol as needed for moderate pain. Given your level of discomfort, I am only giving you several tablets of Percocet. Please be advised that this can cause drowsiness, do not drink alcohol or drive while taking this medication. This medication is addictive therefore you should only reserve this for severe pain only. We can not refill this medication to the emergency room. If any new or worsening symptoms occur including but not limited to severe chest pain, shortness of breath, please seek emergent care. If you continue to have pain in your shoulder, you may follow-up with the front end alignment specialist, call to make an appointment. Prescriptions: New oxycodone-acetaminophen [Percocet] 5-325 mg tablet 1 tab PO Q8H PRN (Reason: severe pain (scale score 7-10)) Qty: 6 0RF Rx Instructions: Partial Fill upon patient request. No Action atorvastatin 80 mg tablet 80 mg PO BEDTIME Eliquis 5 mg Tablet 5 mg PO BID Qty: 60 0RF omeprazole 40 mg capsule,delayed release(DR/EC) 40 mg PO DAILY@0630 duloxetine 20 mg capsule,delayed release(DR/EC) 20 mg PO DAILY calcium carbonate [Oyster Shell Calcium 500] 500 mg calcium (1,250 mg) tablet 500 mg PO BID Patient Comments: Applies to legs hydroxyzine HCl 25 mg tablet 25 mg PO Q8H PRN (Reason: anxiety) torsemide 20 mg tablet 20 mg PO DAILY Qty: 30 0RF amlodipine 5 mg Tablet 5 mg PO DAILY Qty: 30 0RF Protocol: Hold for SBP< HOLD for SBP < : 90 trazodone 150 mg tablet 150 mg PO BEDTIME albuterol sulfate 2.5 mg /3 mL (0.083 %) solution for nebulization 2.5 mg inhalation Q6H PRN (Reason: Shortness Of Breath Or Wheezing) gabapentin 300 mg capsule 300 mg PO BID albuterol sulfate 90 mcg/actuation HFA aerosol inhaler 2 puff INHALATION QID PRN (Reason: Shortness Of Breath Or Wheezing) levothyroxine [Synthroid] 100 mcg Tablet 100 mcg PO DAILY@0600 Qty: 90 0RF aspirin 81 mg tablet,delayed release (DR/EC) 81 mg PO QAM docusate sodium 100 mg capsule 100 mg PO BID cyclobenzaprine 5 mg tablet 5 mg PO TID melatonin 5 mg tablet 5 mg PO BEDTIME insulin degludec [Tresiba FlexTouch U-200] 200 unit/mL (3 mL) insulin pen 67 unit subcut DAILY Mounjaro 5 mg/0.5 mL pen injector 5 mg SUBCUT FR acetaminophen 325 mg Tablet 650 mg PO Q6H PRN (Reason: Pain, Mild 1-3,Fever,Headache) 30 Days Qty: 240 0RF oxycodone 5 mg tablet 5 mg PO Q6H PRN (Reason: pain) 7 Days Qty: 28 0RF Rx Instructions: Partial Fill upon patient request. cephalexin 500 mg capsule 500 mg PO BID 7 Days Qty: 14 0RF doxycycline hyclate 100 mg capsule 100 mg PO BID 7 Days Qty: 14 0RF ferrous fumarate 324 mg (106 mg iron) tablet 324 mg PO DAILY Qty: 90 0RF Referrals: [facility] [place] [facility] [Provider Group] Print Language: Arabic
--- NOTE | 2025-06-03 09:02 | ECG_ITS ---
Test Reason : L ARM PAIN/FALL Blood Pressure : */* mmHG Vent. Rate : 63 BPM Atrial Rate : 63 BPM P-R Int : 182 ms QRS Dur : 90 ms QT Int : 444 ms P-R-T Axes : 55 -28 29 degrees QTcB Int : 454 ms Normal sinus rhythm Normal ECG When compared with ECG of 17-Apr-2025 15:19, No significant change was found Referred By: Kristi Delvalle Electronically Signed By: JUANPABLO BOSS
[2025-06-03 09:26] VITALS: PULSE 84; RESP 20; O2SAT 96
[2025-06-03 10:10] VITALS: BP 93/54; PULSE 64; RESP 18; TEMP 36.8; O2SAT 100
[2025-06-03 10:11] LABS: MANUAL DIFF FLAG NO
[2025-06-03 10:12] LABS: Hematocrit 33.8 % (37.0-47.0); Hemoglobin 10.9 g/dl (12.0-16.0); Imm Gran Abs Auto 0.01 X10*3/uL (0.00-0.03); Imm Gran Pct Auto 0.2 % (0.0-0.4); Lymphocytes Absolute Auto 1.0 X10*3/uL (1.2-4.9); Mean Corpuscular HGB Conc 32.2 g/dl (31.0-35.0); Mean Corpuscular Hemoglobin 27.1 pg (27.0-33.0); Mean Corpuscular Volume 84.1 fL (80.0-98.0); NRBC Abs Auto 0.000 X10*3/uL (0.0-0.012); NRBC Pct Auto 0.0 /100WBC (0.0-0.2); Platelet Count 183 X10*3/uL (160-400); Red Blood Count 4.02 X10*6/uL (4.20-5.50); White Blood Count 4.8 X10*3/uL (4.8-10.8)
[2025-06-03 10:35] LABS: Alanine Aminotransferase 18 U/L (0-31); Albumin Level 3.0 g/dL (3.5-5.0); Alkaline Phosphatase 70 U/L (39-117); Anion Gap 10 (12-20); Aspartate Amino Transferase 20 U/L (5-31); Blood Urea Nitrogen 33 mg/dL (9-16); Calcium 8.1 mg/dL (8.4-10.2); Carbon Dioxide 33 mmol/L (22-29); Chloride 101 mmol/L (96-108); Creatinine Clr Calc Pharmacy 40.1; Estimated Glomerular Filt Rate 35; Potassium 4.4 mmol/L (3.3-5.1); Sodium 140 mmol/L (135-145); Total Protein 6.1 g/dL (6.5-8.0)
[2025-06-03 10:43] LABS: Troponin-I High Sensitivity 9.0 ng/L (<3.5-17.0)
[2025-06-03 12:07] VITALS: BP 112/57; PULSE 67; RESP 16; TEMP 36.8; O2SAT 100
[2025-06-03 15:05] VITALS: BP 110/63; PULSE 61; RESP 16; TEMP 36.7; O2SAT 100
[2025-06-03 16:09] VITALS: BP 110/63; PULSE 61; RESP 16; TEMP 36.7; O2SAT 100
== END 2025-06-03 16:10 | disposition home or self-care (01) ==
PROVIDERS: Physician Assistant Medical; Emergency Provider Emergency Medicine Emergency Medical Services; PCP Internal Medicine
DX: S40.012A Contusion of left shoulder, initial encounter (principal); S60.212A Contusion of left wrist, initial encounter; M25.532 Pain in left wrist; M25.512 Pain in left shoulder; R51.9 Headache, unspecified; M54.2 Cervicalgia; R00.1 Bradycardia, unspecified; I25.10 Atherosclerotic heart disease of native coronary artery without angina pectoris; Y99.8 Other external cause status; X58.XXXA Exposure to other specified factors, initial encounter; W18.30XA Fall on same level, unspecified, initial encounter; Y93.9 Activity, unspecified; Y92.9 Unspecified place or not applicable; Z79.899 Other long term (current) drug therapy
CPT/HCPCS: 36415; 70450; 72125; 73030; 73110; 80048; 80076; 84484; 85025; 93005; 96365; 96366; 96375; 99284; 99285; J0131; J2270

== ENCOUNTER → 2025-06-03 09:02 | Outpatient (BNV) | payer OTHER, SELFPAY | PROVIDERS: Emergency Provider Emergency Medicine Emergency Medical Services; PCP Internal Medicine; Visit Provider Internal Medicine | DX: M79.602 Pain in left arm (principal); W19.XXXA Unspecified fall, initial encounter | CPT/HCPCS: 93010 ==

== ENCOUNTER → 2025-06-03 09:04 | Outpatient (BNV) | payer OTHER, SELFPAY | PROVIDERS: Emergency Provider Emergency Medicine Emergency Medical Services; PCP Internal Medicine; Visit Provider Radiology Diagnostic Radiology | DX: Z04.3 Encounter for examination and observation following other accident (principal); M25.512 Pain in left shoulder; M25.532 Pain in left wrist; W18.39XA Other fall on same level, initial encounter | CPT/HCPCS: 70450; 72125; 73030; 73110 ==

== ENCOUNTER 2025-06-11 01:10 | Emergency (ER) | payer OTHER, SELFPAY ==
--- OUTSIDE RECORDS SUMMARY | 2025-03-06 05:50 | XMS_ITS ---
Author Organization [facility] Address [address] [place] [address] Care Team Providers Care Print Room Worker Name Role Phone Amanda Adame M.D. Primary Care Provider Geoff Leon Jr, João Marie REASON FOR VISIT anemia Encounters Encounter Location Date Provider Diagnosis [facility] [place] [address] [place], [place] [id number] 03/06/2025 João Leon Jr Plan Of Treatment Next Appt Details Provider Name:João yañez Jr, 07/26/2025 02:15:00 PM, [address], [address], [place], [address], Progress Notes * JP MORGANDOB:[birth year] (74 yo F)Acc No.[id number]:03/06/2025 EGD and COL/MAC Patient: JP HINKLE Provider: Shannan Leon MD :1950 A ge:74 Y S ex:Female Date:03/06/2025 Address:[address] [place] [address] [address] , [place], [place] Pcp:Amanda Adame M.D. Subjective: * Chief Complaints: [...] 03/06/2025 Generated for Selene garcia/Thad/Miriamitting on: 1 08/11/2024 04:09 AM EST
--- OUTSIDE RECORDS SUMMARY | 2025-06-08 13:00 | XMS_ITS | Encounter Summary ---
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 Encounter Details Date Type Department Care Team (Late st Contact Info) Description 06/08/2025 2:00 PM EDT Telemedicine [facility] [address] [place] [address] Kayley Alanis RN Long-term current use of [...] year old female who is 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 The patient last took Percocet on: 06/08/2025 Medication is: 55% % effective at alleviating pain. Pt was [place] [facility] [place], s/p fall with left arm pain. She was provided IV Morphine at hospital and was discharged home with Percocet 5mg #6 tablets at that time. OBJECTIVE: PROGRAM DIR checked: 06/08/2025 Pill count completed for Percocet , patient reports count today is 1 , anticipated count should be 0, this is as expected. Vital Signs Pain Score: 7 Pain Loc: Arm Pain Education: Yes Additional pain site: both arms and both knee's Last PCP visit: 05/08/2025 Controlled substance agreement signed: Controlled Substance Agreement 10/18/2024 FURNITURE DECALS INSPECTOR Tele Tier: 2 Current Medications[1] Smoking status: [...] and follow up at the next Tele FURNITURE DECALS INSPECTOR visit or sooner if needed. Mary Lou Cisneros has verbalized understanding of care plan. Future Appointments Date Time Provider Department Center 06/11/2025 3:15 PM Amanda Myers MD MEDICINE [facility] 07/09/2025 3:30 PM Amanda Myers MD MEDICINE [facility] 09/21/2025 10:00 AM Kayley Alanis, RN MEDIC[facility] Kayley Alanis RN [1] Current Outpatient Medications: [...] tablet, Rfl: 1 Blood Glucose Monitoring Suppl (MailFrontier [place] Lite) w/Device kit, Use to test blood sugar 3 times daily, Disp: 1 kit, Rfl: 0 Continuous Glucose Big Data Platform Architect (FreeStyle Mickey 3 [place]) device, 1 each Once per day. Use [...] Care Team (Late st Contact Info) Description 06/11/2025 3:15 PM EST Office Visit [facility] [address] [place] [address] [phone] Amanda Watkins MD [address] [place], [place] [phone] 07/09/2025 3:30 PM EST Office Visit [facility] [address] [place] [phone] Amanda Watkins MD [address] [place] [phone] 09/21/2025 10:00 AM EST Telemedicine [address] [address] Kayley Alanis, PHILLIP documented as of this encounter Visit Diagnoses Diagnosis Long-term current use of opiate analgesic Encounter for long-term (current) use of other medications documented in this encounter Additional Health Concerns Assessment Noted Time PHQ-9 Depression Total Score: 14 025 2:41 PM EDT documented as of this encounter Care Teams Retail Store Clerk Relationship Specialty Start Date End Date Amanda Watkins MD [address] [place] [phone] PCP - General Family Medicine 04/07/19 Hiro Ram FNP [address] [place] [address] [phone] Nurse Practitioner Family Medicine 07/06/23 Raad Arias, TheaD [address] [place] [address] [phone] Pharmacist Internal Medicine 10/19/24 [facility] 03/08/25 documented as of this encounter
[2025-06-11] VITALS (7 sets, daily range): BP systolic 137–183; BP diastolic 45–90; PULSE 61–88; RESP 13–22; TEMP 36.8–37.2; O2SAT 88–100; BMI 33.0
[2025-06-11 01:29] LABS: Glucose, Whole Blood > 600 mg/dL (60-115)
[2025-06-11 01:32] LABS: Glucose, Whole Blood > 600 mg/dL (60-115)
--- NOTE | 2025-06-11 01:35 | PC.NURSE ---
sent lab for venous stick d/t elevated blood glucose
[2025-06-11 01:45] LABS: Baso%MD 1.1 %; Eos%MD 3.4 %; Hematocrit 36.2 % (37.0-47.0); Hemoglobin 11.7 g/dl (12.0-16.0); IG%MD 0.2 %; Lymph%MD 22.6 %; Mean Corpuscular HGB Conc 32.3 g/dl (31.0-35.0); Mean Corpuscular Hemoglobin 26.7 pg (27.0-33.0); Mean Corpuscular Volume 82.6 fL (80.0-98.0); Mono%MD 9.1 %; NRBC Abs Auto 0.000 X10*3/uL (0.0-0.012); NRBC Pct Auto 0.0 /100WBC (0.0-0.2); Neut%MD 63.6 %; Platelet Count 242 X10*3/uL (160-400); Red Blood Count 4.38 X10*6/uL (4.20-5.50); White Blood Count 5.6 X10*3/uL (4.8-10.8)
[2025-06-11 02:05] LABS: Alanine Aminotransferase 7 U/L (0-31); Albumin Level 3.5 g/dL (3.5-5.0); Alkaline Phosphatase 78 U/L (39-117); Anion Gap 13 (12-20); Aspartate Amino Transferase 15 U/L (5-31); Blood Urea Nitrogen 26 mg/dL (9-16); Calcium 8.4 mg/dL (8.4-10.2); Carbon Dioxide 30 mmol/L (22-29); Chloride 93 mmol/L (96-108); Creatinine Clr Calc Pharmacy 39.5; Estimated Glomerular Filt Rate 38; Potassium 4.7 mmol/L (3.3-5.1); Sodium 131 mmol/L (135-145); Total Protein 6.7 g/dL (6.5-8.0)
[2025-06-11] MEDS: Ketamine HCl/NS 50 MG/5 ML SYRINGE 25 MG IVPUSH (02:10)
[2025-06-11 02:13] LABS: Magnesium 2.4 mg/dL (1.6-2.6)
[2025-06-11 02:16] LABS: Atypical Lymph Absolute Manual 0.1 x10*3/uL; Atypical Lymphs Percent Manual 1 % (0-6); Band Neutrophils Percent 1 % (3-5); Eosinophils Absolute Manual 0.2 X10*3/uL (0.0-0.4); Eosinophils Percent Manual 3 % (0-4); Lymphocytes Absolute Manual 0.9 X10*3/uL (1.2-4.9); Lymphocytes Percent Manual 16 % (20-40); Monocytes Absolute Manual 0.4 X10*3/uL (0.1-1.2); Monocytes Percent Manual 8 % (2-11); Neutrophils Absolute Manual 4.0 X10*3/uL (2.0-8.3); Neutrophils Percent Manual 71 % (45-73)
[2025-06-11 02:17] LABS: Hypochromasia 1+ (5-14) /OIF; Microcytosis 1+ (5-14) /OIF; RBC Morphology NOTED
[2025-06-11 03:01] LABS: Venous Blood Gas Refer to POC result
[2025-06-11 03:04] LABS: VBG HCO3 33 mmol/L (22-26); VBG O2 % Saturation 99.0 %
--- NOTE | 2025-06-11 03:11 | ED.GENADULT ---
HPI - General Adult General Chief complaint: General Medical Stated complaint: hyperglycemia Time Seen by Provider: 06/11/25 01:50 Source: patient, EMS, RN notes reviewed and old records reviewed Mode of arrival: EMS Limitations: language barrier and altered mental status History of Present Illness ED Provider: Dr. Zoila Hyde HPI narrative: 74-year-old female with medical history of CKD stage 3, type 2 diabetes, HLD, HTN, CAD, HfPef, osteoporosis, arthritis, asthma, fibromyalgia, anemia, bradycardia, MDD, ANILA, presenting with anxiety and head to toe body pain that is been ongoing for ?a while?. EMS reports they are called to the home for generalized body pain however, patient is unable to localize pain. Reportedly having elevated blood sugars as well with the machine reading high. Family reports poor diet, drinking multiple sugary drinks per day. Patient is unable to give any history secondary to her clinical condition. She is alternately screaming in agony and falling asleep sitting up. Unable to obtain further information at this time. Related Data Home Medications ?Medication ?Instructions ?Recorded ?Confirmed atorvastatin 80 mg tablet 80 mg PO BEDTIME 04/07/21 04/18/25 duloxetine 20 mg capsule,delayed 20 mg PO DAILY 03/18/24 04/18/25 release omeprazole 40 mg capsule,delayed 40 mg PO DAILY@0630 03/18/24 04/18/25 release trazodone 150 mg tablet 150 mg PO BEDTIME 10/06/24 04/18/25 calcium carbonate (Oyster Shell 500 mg PO BID 12/06/24 04/18/25 Calcium 500) hydroxyzine HCl 25 mg tablet 25 mg PO Q8H PRN anxiety 12/06/24 04/18/25 albuterol sulfate 2.5 mg/3 mL 2.5 mg inhalation Q6H PRN 03/04/25 04/18/25 (0.083 %) solution for nebulization Shortness Of Breath Or Wheezing albuterol sulfate 90 mcg/actuation 2 puff inhalation QID PRN 03/04/25 04/18/25 aerosol inhaler Shortness Of Breath Or Wheezing gabapentin 300 mg capsule 300 mg PO BID 03/04/25 04/18/25 aspirin 81 mg tablet,delayed 81 mg PO QAM 04/18/25 04/18/25 release cyclobenzaprine 5 mg tablet 5 mg PO TID 04/18/25 04/18/25 docusate sodium 100 mg capsule 100 mg PO BID 04/18/25 04/18/25 insulin degludec 200 unit/mL (3 67 unit subcut DAILY 04/18/25 04/18/25 mL) subcutaneous pen (Tresiba FlexTouch U-200 insulin) melatonin 5 mg tablet 5 mg PO BEDTIME 04/18/25 04/18/25 tirzepatide 5 mg/0.5 mL 5 mg subcut FR 04/18/25 04/18/25 subcutaneous pen injector (Lamont) Previous Rx's ?Medication ?Instructions ?Recorded apixaban 5 mg tablet (Eliquis) 5 mg PO BID #60 tabs 11/03/23 amlodipine 5 mg tablet 5 mg PO DAILY #30 tabs 06/20/24 torsemide 20 mg tablet 20 mg PO DAILY #30 tabs 06/20/24 levothyroxine 100 mcg tablet 100 mcg PO DAILY@0600 #90 tabs 03/07/25 (Synthroid) ferrous fumarate 324 mg (106 mg 324 mg PO DAILY #90 tabs 03/22/25 iron) tablet acetaminophen 325 mg tablet 650 mg (2 x 325 mg) PO Q6H PRN 04/20/25 Pain, Mild 1-3,Fever,Headache 30 days #240 tabs oxycodone 5 mg tablet 5 mg PO Q6H PRN pain 7 days #28 04/20/25 tabs cephalexin 500 mg capsule 500 mg PO BID 7 days #14 caps 05/23/25 doxycycline hyclate 100 mg capsule 100 mg PO BID 7 days #14 caps 05/23/25 oxycodone-acetaminophen 5 mg-325 1 tab PO Q8H PRN severe pain 06/03/25 mg tablet (Percocet) (scale score 7-10) #6 tabs Allergies Allergy/AdvReac Type Severity Reaction Status Date / Time codeine (CODEINE) Allergy Intermediate HALLUCINATI Verified 06/11/25 01:23 ONS Review of Systems Review of Systems: Yes Unobtainable due to mental status [facility] Past Medical History Medical History Septic joint of right shoulder region Septic arthritis Urinary incontinence (HFpEF) heart failure with preserved ejection fraction Anxiety Insomnia CKD (chronic kidney disease) CKD stage 3 due to type 2 diabetes mellitus Leg abrasion Abuse of non-prescription analgesics Type 2 diabetes mellitus with unspecified complications Other and unspecified hyperlipidemia Essential hypertension Atherosclerotic cardiovascular disease Urgency incontinence Osteoporosis Arthritis Asthma Hypertension Fibromyalgia Diabetes mellitus Surgical History H/O tubal ligation History of hernia repair Social History Social History Household Members: Children Household Members Other:: son Housing: Apartment Are you a primary adult day care worker to a significant other at home: No Do you presently have visiting nurse or other home services: No Unable to assess alcohol history related to: Unable to respond Alcohol intake: never 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 Patient Tobacco Use Status: Never used Tobacco e-Cigarette/Vaping Use: Never Used Use of substances other than those prescribed or required for medical reasons: Unable to respond Advance Directives: Yes Advance Directives on File: Yes Advance Directives Date on File: 04/07/24 Do you have a plan to hurt others: No Plan service: No Sexual orientation: Straight/Heterosexual Physical Exam ED Exam Exam: GENERAL: Anxious, tearful. SKIN: Normal skin color for ethnicity, warm, dry, intact, chronic venous stasis changes overlying bilateral lower legs. HEENT: Normocephalic, atraumatic, no stridor, posterior oropharynx nonerythematous, dentition intact, EOMI. NECK: Soft, supple, full ROM, midline structures nontender, no step-offs, no deformities, no lymphadenopathy. CHEST: Heart regular rhythm, no murmurs, symmetric chest rise and fall, no crepitus. PULMONARY: Clear to auscultation bilaterally, no labored breathing, no wheezes/rhales/ rhonchi. ABDOMINAL: Soft, nondistended, nontender, positive bowel sounds in all quadrants. : Deferred. MUSCULOSKELETAL: Normal tone, full range of motion, no deformities, 2+ peripheral edema. NEURO: Alert and oriented to person, CN II through XII intact, equal strength and sensation bilateral upper and lower extremities, no focal neurologic deficits. PSYCHIATRIC: Anxious affect, tearful, slurred speech and histrionic Vital Signs: Vital Signs - 24 hr 06/11/25 01:19 06/11/25 02:00 06/11/25 04:00 Temperature 98.2 F 98.2 F 98.2 F Pulse Rate 73 67 69 Respiratory Rate 21 H 18 13 Blood Pressure 156/80 H 137/56 L 177/72 H Pulse Oximetry 95 100 97 Oxygen Delivery Method Nasal Cannula Nasal Cannula Room Air Oxygen Flow Rate 2 06/11/25 06:58 06/11/25 10:38 Temperature 98.9 F 98.7 F Pulse Rate 67 61 Respiratory Rate 22 H 19 Blood Pressure 183/45 H 183/45 H Pulse Oximetry 95 97 Oxygen Delivery Method Room Air Room Air Oxygen Flow Rate BMI result Body Mass Index 33.0 Course Reevaluation(s) Reevaluation #1: 12:09 PM 06/11/2025 (Bing James COREMAKER APPRENTICE): Per Mayda from , patient will discharge home with VNA. Patient declined STR. Family aware. Observation care revealed that patient does not meet medical necessity for hospitalization. Final disposition discussed with patient. The patient completed observation care at 12:30pm on 06/11/25. Medications Administered Discontinued Medications Generic Name Dose Route Start Last Admin Trade Name Jesusq PRN Reason Stop Dose Admin Diazepam 2 mg 06/11/25 04:57 06/11/25 05:03 Diazepam 2 Mg Tablet PO 06/11/25 04:58 2 mg ONCE ONE Administration Gabapentin 600 mg 06/11/25 04:57 06/11/25 05:03 Gabapentin 600 Mg Tablet PO 06/11/25 04:58 600 mg ONCE ONE Administration Sodium Chloride 1,000 mls @ 999 mls/hr 06/11/25 02:00 06/11/25 02:42 Ns IV 06/11/25 03:00 Infused .Q1H1M JULIANNE Infusion Lactated Ringer's 1,000 mls @ 999 mls/hr 06/11/25 04:15 06/11/25 06:34 Lr IV 06/11/25 05:15 Infused .Q1H1M ONE Infusion Insulin Glargine 9 unit 06/11/25 04:15 06/11/25 04:27 Insulin Glargine,Hum.Rec.Anlog 100 Unit/Ml 10 Ml Vial SUBCUT 06/11/25 04:16 9 unit ONCE ONE Administration Ketamine HCl 25 mg 06/11/25 01:54 06/11/25 02:10 Ketamine Hcl/Ns 50 Mg/5 Ml Syringe IVPUSH 06/11/25 01:55 25 mg ONCE ONE Administration Midazolam HCl 5 mg 06/11/25 01:54 06/11/25 02:10 Midazolam Hcl 5 Mg/Ml Vial IVPUSH 06/11/25 01:55 5 mg ONCE ONE Administration Oxycodone HCl 5 mg 06/11/25 03:18 06/11/25 03:40 Oxycodone Hcl Immed Release 5 Mg Tablet PO 06/11/25 03:19 5 mg ONCE ONE Administration Ziprasidone 20 mg 06/11/25 03:39 06/11/25 03:42 Ziprasidone Mesylate 20 Mg Vial IM 06/11/25 03:40 20 mg ONCE ONE Administration Medical Decision Making Medical Decision Making MDM Narrative: Patient presents today with chief complaint of hyperglycemia. Differential diagnosis includes ketoacidosis, hyperosmolar hyperglycemic syndrome, dehydration, infection, insulin noncompliance, among many others.? Broad-based work-up was initiated to evaluate the hyperglycemia further. Patient remains hemodynamically stable here in the emergency department. 7:50 AM 06/11/2025 (Dr. Zoila Hyde, D.O.) Patient aggressively agitated all night long. She screams out in pain, stating she has pain all over but is difficult to redirect. Medicated with multiple medications for sedation and pain control including oxycodone, Valium, Geodon, Versed, ketamine, gabapentin. She received 2 liters of IV fluid for her elevated blood sugars which has improved over the last several hours. She also received long-acting insulin. She is not currently in DKA. That being said, the patient is extremely agitated and difficult to have any meaningful discussion with. I attempted to call her son who is listed as the healthcare proxy and primary contact but the number is disconnected. I then attempted to call a home phone number that is local however, this daughter that answered is not the daughter that she lives with. This daughter told me that she will call the daughter that she lives with and have her come to the hospital or call the hospital. There has been no response. At this point, I will make her a social hold, have case management review her case, potential need for placement versus some other home intervention. This is the 3rd emergency room visit in the last 10 days for this patient. She seems to be very agitated at night, requiring multiple sedating medications and then ultimately sleeping throughout the day. I wonder if there is an alteration in her sleep-wake cycle. She was evaluated by Psychiatry during her previous ER visit on 05/30/2025, found to be stable for discharge home with no changes in her medication regimen. Evidently she is very noncompliant with any of her treatment regimens for both psychiatric illness and her diabetes. Signing out to oncoming provider pending case management consult and final disposition. Differential Diagnosis Differential Diagnoses: The differential diagnosis associated with the presentation includes (As above) Admission/Observation Consideration of admission/observation: Escalation of care including admission/observation considered Lab Data MDM Lab Attestation statement: I reviewed the patient's lab results. 06/11/25 01:41 06/11/25 01:41 Labs: Lab Results 06/11/25 06/11/25 06/11/25 Range/Units 01:23 01:29 01:41 WBC 5.6 (4.8-10.8) X10*3/uL RBC 4.38 (4.20-5.50) X10*6/uL Hgb 11.7 L (12.0-16.0) g/dl Hct 36.2 L (37.0-47.0) % MCV 82.6 (80.0-98.0) fL MCH 26.7 L (27.0-33.0) pg MCHC 32.3 (31.0-35.0) g/dl RDW 15.1 (11.0-16.0) % Plt Count 242 D (160-400) X10*3/uL MPV 10.4 (9.4-12.3) fL Absolute Nucleated RBC 0.000 (0.0-0.012) X10*3/uL Nucleated RBC % (auto) 0.0 (0.0-0.2) /100WBC Neutrophils % (Manual) 71 (45-73) % Band Neutrophils % 1 L (3-5) % Lymphocytes % (Manual) 16 L (20-40) % Atypical Lymphs % (Man) 1 (0-6) % Monocytes % (Manual) 8 (2-11) % Eosinophils % (Manual) 3 (0-4) % Abs Neuts (Manual) 4.0 (2.0-8.3) X10*3/uL Lymphocytes # (Manual) 0.9 L (1.2-4.9) X10*3/uL Atyp Lymphs # (Manual) 0.1 x10*3/uL Monocytes # (Manual) 0.4 (0.1-1.2) X10*3/uL Eosinophils # (Manual) 0.2 (0.0-0.4) X10*3/uL Platelet Estimate NORMAL (NORMAL) Plt Morphology Comment NORMAL RBC Morphology NOTED Hypochromasia 1+ (5-14) /OIF Microcytosis 1+ (5-14) /OIF VBG pH (7.32-7.43) VBG pCO2 mmHg VBG pO2 mmHg VBG HCO3 (22-26) mmol/L VBG O2 Saturation % VBG Base Excess mmol/L Sodium 131 L (135-145) mmol/L Potassium 4.7 (3.3-5.1) mmol/L Chloride 93 L (96-108) mmol/L Carbon Dioxide 30 H (22-29) mmol/L Anion Gap 13 (12-20) BUN 26 H (9-16) mg/dL Creatinine 1.36 (0.5-1.4) mg/dL Estim Creat Clear Calc 39.5 Estimated GFR 38 POC Glucose > 600 H* > 600 H* (60-115) mg/dL Random Glucose 666 H* (60-115) mg/dL Calcium 8.4 (8.4-10.2) mg/dL Magnesium 2.4 (1.6-2.6) mg/dL Total Bilirubin 0.2 (0.0-1.0) mg/dL AST 15 (5-31) U/L ALT 7 (0-31) U/L Alkaline Phosphatase 78 (39-117) U/L Total Protein 6.7 (6.5-8.0) g/dL Albumin 3.5 (3.5-5.0) g/dL Beta-Hydroxybutyrate 0.13 (0.02-0.27) mmol/L Urine Color Urine Appearance Urine pH (5.0-9.0) Ur Specific Clinton (1.005-1.025) Urine Protein (Neg-Trace) mg/dL Urine Glucose (UA) (Negative) mg/dL Urine Ketones (Negative) mg/dL Urine Blood (Negative) Urine Nitrite (Negative) Ur Leukocyte Esterase (Negative) Urine RBC (0-2) /HPF Urine WBC (0-5) /HPF Ur Squamous Epith Cells (0-2) /HPF Urine Bacteria (None Seen) Hyaline Casts (0-2) /LPF 06/11/25 06/11/25 06/11/25 Range/Units 03:00 04:13 06:37 WBC (4.8-10.8) X10*3/uL RBC (4.20-5.50) X10*6/uL Hgb (12.0-16.0) g/dl Hct (37.0-47.0) % MCV (80.0-98.0) fL MCH (27.0-33.0) pg MCHC (31.0-35.0) g/dl RDW (11.0-16.0) % Plt Count (160-400) X10*3/uL MPV (9.4-12.3) fL Absolute Nucleated RBC (0.0-0.012) X10*3/uL Nucleated RBC % (auto) (0.0-0.2) /100WBC Neutrophils % (Manual) (45-73) % Band Neutrophils % (3-5) % Lymphocytes % (Manual) (20-40) % Atypical Lymphs % (Man) (0-6) % Monocytes % (Manual) (2-11) % Eosinophils % (Manual) (0-4) % Abs Neuts (Manual) (2.0-8.3) X10*3/uL Lymphocytes # (Manual) (1.2-4.9) X10*3/uL Atyp Lymphs # (Manual) x10*3/uL Monocytes # (Manual) (0.1-1.2) X10*3/uL Eosinophils # (Manual) (0.0-0.4) X10*3/uL Platelet Estimate (NORMAL) Plt Morphology Comment RBC Morphology Hypochromasia /OIF Microcytosis /OIF VBG pH 7.38 (7.32-7.43) VBG pCO2 55 mmHg VBG pO2 100 mmHg VBG HCO3 33 H (22-26) mmol/L VBG O2 Saturation 99.0 % VBG Base Excess 6.6 mmol/L Sodium (135-145) mmol/L Potassium (3.3-5.1) mmol/L Chloride (96-108) mmol/L Carbon Dioxide (22-29) mmol/L Anion Gap (12-20) BUN (9-16) mg/dL Creatinine (0.5-1.4) mg/dL Estim Creat Clear Calc Estimated GFR POC Glucose 465 H* 421 H* (60-115) mg/dL Random Glucose (60-115) mg/dL Calcium (8.4-10.2) mg/dL Magnesium (1.6-2.6) mg/dL Total Bilirubin (0.0-1.0) mg/dL AST (5-31) U/L ALT (0-31) U/L Alkaline Phosphatase (39-117) U/L Total Protein (6.5-8.0) g/dL Albumin (3.5-5.0) g/dL Beta-Hydroxybutyrate (0.02-0.27) mmol/L Urine Color Urine Appearance Urine pH (5.0-9.0) Ur Specific [place] (1.005-1.025) Urine Protein (Neg-Trace) mg/dL Urine Glucose (UA) (Negative) mg/dL Urine Ketones (Negative) mg/dL Urine Blood (Negative) Urine Nitrite (Negative) Ur Leukocyte Esterase (Negative) Urine RBC (0-2) /HPF Urine WBC (0-5) /HPF Ur Squamous Epith Cells (0-2) /HPF Urine Bacteria (None Seen) Hyaline Casts (0-2) /LPF 06/11/25 Range/Units 06:59 WBC (4.8-10.8) X10*3/uL RBC (4.20-5.50) X10*6/uL Hgb (12.0-16.0) g/dl Hct (37.0-47.0) % MCV (80.0-98.0) fL MCH (27.0-33.0) pg MCHC (31.0-35.0) g/dl RDW (11.0-16.0) % Plt Count (160-400) X10*3/uL MPV (9.4-12.3) fL Absolute Nucleated RBC (0.0-0.012) X10*3/uL Nucleated RBC % (auto) (0.0-0.2) /100WBC Neutrophils % (Manual) (45-73) % Band Neutrophils % (3-5) % Lymphocytes % (Manual) (20-40) % Atypical Lymphs % (Man) (0-6) % Monocytes % (Manual) (2-11) % Eosinophils % (Manual) (0-4) % Abs Neuts (Manual) (2.0-8.3) X10*3/uL Lymphocytes # (Manual) (1.2-4.9) X10*3/uL Atyp Lymphs # (Manual) x10*3/uL Monocytes # (Manual) (0.1-1.2) X10*3/uL Eosinophils # (Manual) (0.0-0.4) X10*3/uL Platelet Estimate (NORMAL) Plt Morphology Comment RBC Morphology Hypochromasia /OIF Microcytosis /OIF VBG pH (7.32-7.43) VBG pCO2 mmHg VBG pO2 mmHg VBG HCO3 (22-26) mmol/L VBG O2 Saturation % VBG Base Excess mmol/L Sodium (135-145) mmol/L Potassium (3.3-5.1) mmol/L Chloride (96-108) mmol/L Carbon Dioxide (22-29) mmol/L Anion Gap (12-20) BUN (9-16) mg/dL Creatinine (0.5-1.4) mg/dL Estim Creat Clear Calc Estimated GFR POC Glucose (60-115) mg/dL Random Glucose (60-115) mg/dL Calcium (8.4-10.2) mg/dL Magnesium (1.6-2.6) mg/dL Total Bilirubin (0.0-1.0) mg/dL AST (5-31) U/L ALT (0-31) U/L Alkaline Phosphatase (39-117) U/L Total Protein (6.5-8.0) g/dL Albumin (3.5-5.0) g/dL Beta-Hydroxybutyrate (0.02-0.27) mmol/L Urine Color Straw Urine Appearance Clear Urine pH 6.0 (5.0-9.0) Ur Specific Clinton <= 1.005 (1.005-1.025) Urine Protein Negative (Neg-Trace) mg/dL Urine Glucose (UA) >=1000 H (Negative) mg/dL Urine Ketones Negative (Negative) mg/dL Urine Blood Trace (Negative) Urine Nitrite Negative (Negative) Ur Leukocyte Esterase Negative (Negative) Urine RBC 3-5 H (0-2) /HPF Urine WBC 0-5 (0-5) /HPF Ur Squamous Epith Cells 0-2 (0-2) /HPF Urine Bacteria Trace (None Seen) Hyaline Casts 0-2 (0-2) /LPF ABG Data Attestation ABG: I personally reviewed and interpreted this ABG as follows: Interpretation: No metabolic acidosis Independent Historian Clinical information obtained from an independent historian. History obtained from or confirmed by: EMS External Record Review External record reviewed: Inpatient record Chronic Conditions Patient?s care impacted by: Diabetes and Hypertension Social Determinants Patient?s care significantly limited by Social Determinants of Health including: Problems related to primary support group and Other Social Determinant of Health Critical Care Time Critical Care Time Critical Care Time: Yes Total Critical Care Time: 45 Attestation: Time is exclusive of separately billable procedures. Time includes: direct patient care, patient reassessment, coordination of patient care, interpretation of data (laboratory data, pulse oximetry, arterial blood gases and chest xrays), review of patient's medical records, medical consultation and documentation of patient care. Procedures excluded from critical care time: central intravenous line placement and electrocardiography. Discharge Plan Discharge Clinical Impression: Poorly controlled diabetes mellitus, Acute encephalopathy, Histrionic behavior Patient Disposition: Home, Self-Care Additional Instructions: You were evaluated in the emergency department for poorly controlled diabetes. You are being discharged home with VNA services as you declined short-term rehab. Please follow up with your primary care provider this week. Return to the emergency department for any new or concerning symptoms. Prescriptions: No Action atorvastatin 80 mg tablet 80 mg PO BEDTIME Eliquis 5 mg Tablet 5 mg PO BID Qty: 60 0RF omeprazole 40 mg capsule,delayed release(DR/EC) 40 mg PO DAILY@0630 duloxetine 20 mg capsule,delayed release(DR/EC) 20 mg PO DAILY calcium carbonate [Oyster Shell Calcium 500] 500 mg calcium (1,250 mg) tablet 500 mg PO BID Patient Comments: Applies to legs hydroxyzine HCl 25 mg tablet 25 mg PO Q8H PRN (Reason: anxiety) oxycodone-acetaminophen [Percocet] 5-325 mg tablet 1 tab PO Q8H PRN (Reason: severe pain (scale score 7-10)) Qty: 6 0RF Rx Instructions: Partial Fill upon patient request. torsemide 20 mg tablet 20 mg PO DAILY Qty: 30 0RF amlodipine 5 mg Tablet 5 mg PO DAILY Qty: 30 0RF Protocol: Hold for SBP< HOLD for SBP < : 90 trazodone 150 mg tablet 150 mg PO BEDTIME albuterol sulfate 2.5 mg /3 mL (0.083 %) solution for nebulization 2.5 mg inhalation Q6H PRN (Reason: Shortness Of Breath Or Wheezing) gabapentin 300 mg capsule 300 mg PO BID albuterol sulfate 90 mcg/actuation HFA aerosol inhaler 2 puff INHALATION QID PRN (Reason: Shortness Of Breath Or Wheezing) levothyroxine [Synthroid] 100 mcg Tablet 100 mcg PO DAILY@0600 Qty: 90 0RF aspirin 81 mg tablet,delayed release (DR/EC) 81 mg PO QAM docusate sodium 100 mg capsule 100 mg PO BID cyclobenzaprine 5 mg tablet 5 mg PO TID melatonin 5 mg tablet 5 mg PO BEDTIME insulin degludec [Tresiba FlexTouch U-200] 200 unit/mL (3 mL) insulin pen 67 unit subcut DAILY Mounjaro 5 mg/0.5 mL pen injector 5 mg SUBCUT FR acetaminophen 325 mg Tablet 650 mg PO Q6H PRN (Reason: Pain, Mild 1-3,Fever,Headache) 30 Days Qty: 240 0RF oxycodone 5 mg tablet 5 mg PO Q6H PRN (Reason: pain) 7 Days Qty: 28 0RF Rx Instructions: Partial Fill upon patient request. cephalexin 500 mg capsule 500 mg PO BID 7 Days Qty: 14 0RF doxycycline hyclate 100 mg capsule 100 mg PO BID 7 Days Qty: 14 0RF ferrous fumarate 324 mg (106 mg iron) tablet 324 mg PO DAILY Qty: 90 0RF Referrals: [facility] [Outside] Print Language: Indonesian
[2025-06-11] MEDS: oxyCODONE HCl Immed Release 5 MG TABLET PO (03:40)
--- NOTE | 2025-06-11 03:42 | PC.NURSE ---
pt crying out and trashing in bed at this time. yells out asking for the bathroom. attempted to place bedpan and pt turned over and refuses to use at this time. Abdullahi given IM per MD order at this time d/t patient could cause injury to self.
--- OUTSIDE RECORDS SUMMARY | 2025-06-11 04:09 | XMS_ITS | Encounter Summary ---
Author Organization [facility] Address [address] [place] [address] Care Team Providers Care Directional Drill Operator Name Role Phone Amanda Watkins MD Primary Care Provide r Hiro Ram SALES CLERK FOOD Unavailable Unavailable Raad Arias PharmD Unavailable [phone] Reason for Visit * Reason Comments Med Refill Encounter Details Date Type Department Care Team (Late st Contact Info) Description 09/27/2024 Refill [facility] [address] [place] [address] Ann Kulkarni DO [address] [place] [address] Social History Tobacco Use Types Packs/Day Years [...] Description 06/11/2025 3:15 PM EST Office Visit [address] [address] Amanda Watkins MD [address] [place] [phone] 07/09/2025 3:30 PM EST Office Visit [address] [address] Amanda Watkins MD [address] [place] [phone] 09/21/2025 10:00 AM EST Telemedicine [address] [address] Kayley Alanis RN documented as of this encounter Visit Diagnoses Not on filedocumented in this encounter Additional Health Concerns Assessment Noted Time PHQ-9 Depression Total Score: 0 09/01/19 25 1:18 PM EST documented as of this encounter Care Teams Directional Drill Operator Relationship Specialty Start Date End Date Amanda Watkins MD [address] [place] [address] PCP - General Family Medicine 04/07/19 Hiro Ram FNP [address] [place] [address] Nurse Practitioner Family Medicine 07/06/23 Raad Arias, TehaD [address] [place] [address] Pharmacist Internal Medicine 10/19/24 Ja [facility] 08/10/24 03/12/25 [facility] 03/08/25 documented as of this encounter
--- OUTSIDE RECORDS SUMMARY | 2025-06-11 04:09 | XMS_ITS | Clinical Summary ---
Author Organization [facility] Address [address] [place] [phone] Phone Care Team Providers Care Director Medical Name Role Phone Amanda Watkins MD Primary [...] 12/06/2023, 07/16/2016, 02/17/2013, Additional history exists Insurance [facility] MCR ([id number]) [place] [phone] [place] [id number] [facility] ([id number]) [place]OP[place] [phone] Care Teams Director Medical Relationship Specialty Start Date End Date Amanda Watkins MD [address] [place] [phone] PCP - General Internal Medicine 03/01/23
--- OUTSIDE RECORDS SUMMARY | 2025-06-11 04:09 | XMS_ITS | Encounter Summary ---
Author Organization [employer] Address [address] [facility] [address]t [place] [address] Care Team Providers Care Orthotist Name Role Phone Amanda Watkins MD Primary Care Provide r Hiro Ram STUMMEL SELECTOR Unavailable Unavailable Raad Arias PharmD Unavailable [phone] Reason for Visit * Reason Comments Med Refill Encounter Details Date Type Department Care Team (Late st Contact Info) Description 10/16/2024 Refill [facility] MED & PEDS [address] [place] [address] Amanda Watkins MD [address] [place] [address] Chronic bilateral low back pain with bilateral [...] Description 06/11/2025 3:15 PM EST Office Visit [address] [address] Amanda Watkins MD [address] [place] [address] 07/09/2025 3:30 PM EST Office Visit [address] [address] Amanda Watkins MD [address] [place] [address] 09/21/2025 10:00 AM EST Telemedicine [address] [address] Kayley Alanis RN documented as of this encounter Visit Diagnoses Diagnosis Chronic bilateral low back pain with bilateral sciatica documented in this encounter Additional Health Concerns Assessment Noted Time PHQ-9 Depression Total Score: 0 09/01/19 25 1:18 PM EST documented as of this encounter Care Teams Orthotist Relationship Specialty Start Date End Date Amanda Watkins MD [address] [place] [phone] PCP - General Family Medicine 04/07/19 Hiro Ram FNP [address] [place] [address] Nurse Practitioner Family Medicine 07/06/23 Raad Arias, TheaD [address] [place] [address] Pharmacist Internal Medicine 10/19[facility]24 [facility]12[facility]25 [facility] 03/08/25 documented as of this encounter
--- OUTSIDE RECORDS SUMMARY | 2025-06-11 04:09 | XMS_ITS | Encounter Summary ---
Author Organization [employer] Address [address] [facility] 7t [place] [address] Care Team Providers Care Shop Teacher Name Role Phone Amanda Watkins MD Primary Care Provide r Hiro Ram SENIOR MANAGER ASSET PROTECTION Unavailable Unavailable Raad Arias PharmD Unavailable [phone] Reason for Visit * Reason Onset Date Comments Appointment Request 04/30/2025 Encounter Details Date Type Department Care Team ([facility] st Contact Info) Description 04/30/2025 Telephone [facility] MED[facility]INE [address] [place] [address] Amanda Watkins MD [address] [place] [address] Appointment Request Social History Tobacco Use Types [...] requesting to reschedule CDTM apt Contact at [phone] ([email or web address]) documented in this encounter Plan of Treatment Upcoming Encounters Date Type Department Care Team (Late st Contact Info) Description 06/11/2025 3:15 PM EST Office Visit [facility] [address] [place] [address] Amanda Watkins MD [address] [place] [phone] 07/09/2025 3:30 PM EST Office Visit [facility] [address] [place] [phone] Amanda Watkins MD [address] [place] [phone] 09/21/2025 10:00 AM EST Telemedicine [facility] [address] [place] [address] Kayley Alanis, RN documented as of this encounter Visit Diagnoses Not on filedocumented in this encounter Additional Health Concerns Assessment Noted Time PHQ-9 Depression Total Score: 14 025 2:41 PM EDT documented as of this encounter Care Teams Shop Teacher Relationship Specialty Start Date End Date Amanda Watkins MD [address] [place] [phone] PCP - General Family Medicine 04/07/19 Hiro Ram FNP [address] [place] [address] Nurse Practitioner Family Medicine 07/06/23 Raad Arias, TheaD [address] [place] [phone] Pharmacist Internal Medicine 10/19/24 [facility] 03/08/25 documented as of this encounter
--- OUTSIDE RECORDS SUMMARY | 2025-06-11 04:09 | XMS_ITS | Encounter Summary ---
Author Organization [employer] Address [address] [facility] [address]t [place] [address] Care Team Providers Care Oil Well Gun Perforator Operator Name Role Phone Amanda Watkins MD Primary Care Provide r Hiro Ram WORKERS COMPENSATION CLAIMS EXAMINER Unavailable Unavailable Raad Arias PharmD Unavailable [phone] Reason for Visit * Reason Comments Med Refill Encounter Details Date Type Department Care Team (Late st Contact Info) Description 05/28/2025 Refill [facility] MEDICINE [address] [place] [address] Amanda Watkins MD [address] [place], [place] [phone] Chronic bilateral low back pain with bilateral [...] Description 06/11/2025 3:15 PM EST Office Visit [address] [address] Amanda Watkins MD [address] [place] [address] 07/09/2025 3:30 PM EST Office Visit [address] [address] Amanda Watkins MD [address] [place] [address] 09/21/2025 10:00 AM EST Telemedicine [address] [address] Kayley Alanis RN documented as of this encounter Visit Diagnoses Diagnosis Chronic bilateral low back pain with bilateral sciatica documented in this encounter Additional Health Concerns Assessment Noted Time PHQ-9 Depression Total Score: 14 025 2:41 PM EDT documented as of this encounter Care Teams Oil Well Gun Perforator Operator Relationship Specialty Start Date End Date Amanda Watkins MD [address] [place] [address] PCP - General Family Medicine 04/07/19 Hiro Ram FNP [address] [place] [address] Nurse Practitioner Family Medicine 07/06/23 Raad Arias, TheaD [address] [place] [address] Pharmacist Internal Medicine 10/19/24 [facility] 03/08/25 documented as of this encounter
--- OUTSIDE RECORDS SUMMARY | 2025-06-11 04:09 | XMS_ITS | Encounter Summary ---
Author Organization [employer] Address [address] [facility] [address] [place] [address] Care Team Providers Care Spiral Gear Generator Name Role Phone Amanda Watkins MD Primary Care Provide r Hiro Ram ROUTE SALES DRIVER Unavailable Unavailable Raad Arias PharmD Unavailable Reason for Visit * Reason Comments Med Refill Encounter Details Date Type Department Care Team (Late st Contact Info) Description 10/10/2024 Refill [facility] CH[facility] MED & PEDS [address] [place] [address] Amanda Watkins MD [address] [place] [address] Social History Tobacco Use Types Packs/Day Years [...] Description 06/11/2025 3:15 PM EST Office Visit [address] [address] Amanda Watkins MD [address] [place] [phone] 07/09/2025 3:30 PM EST Office Visit [address] [address] Amanda Watkins MD [address] [place] [phone] 09/21/2025 10:00 AM EST Telemedicine [address] [address] Kayley Alanis RN documented as of this encounter Visit Diagnoses Not on filedocumented in this encounter Additional Health Concerns Assessment Noted Time PHQ-9 Depression Total Score: 0 09/01/19 25 1:18 PM EST documented as of this encounter Care Teams Spiral Gear Generator Relationship Specialty Start Date End Date Amanda Watkins MD [address] [place] [phone] PCP - General Family Medicine 04/07/19 Hiro Ram FNP [address] [place] [address] Nurse Practitioner Family Medicine 07/06/23 Raad Arias, PharmD [address] [place] [address] Pharmacist Internal Medicine 10/19/24 [facility] 08/10/24 03/12/25 [facility] 03/08/25 documented as of this encounter
--- OUTSIDE RECORDS SUMMARY | 2025-06-11 04:09 | XMS_ITS | Data Portability ---
Author Organization [facility], Main Office Address [address] [address] [place] [address] Care Team Providers Care Research Development Manager Name Role Phone EUGENIA FLOWER - 2ND FLOOR OTHER Assessment Encounter Date Assessment Date Assessment LastModified by Organization Details LastModified Time 04/08/2024 04/08/202404/05 na 139 k 5 cre 1.27 wbc 6.8 hgn 9.7 hct 31.1 [email or web address] Not available 04/08/2024 12:35:37 04/11/2024 04/11/202404/05 na 139 k 5 cre 1.27 wbc 6.8 hgn 9.7 hct 31.1 [email or web address] Not available 04/11/2024 21:51:17 04/18/2024 04/18/202404/05 na 139 k 5 cre 1.27 wbc 6.8 hgn 9.7 hct 31.1 [email or web address] Not available 04/18/2024 13:49:59 04/19/2024 04/19/202404/05 na 139 k 5 cre 1.27 wbc 6.8 hgn 9.7 hct 31.1 this BALANCE ENGINEER spent >30 minutes with assessment, dx, referral, [...] Address Organization Details Recorded Time Depressive disorder 73147280 Active 2023 HOLDEN LAURENT [address], [address], [place], [address], [facility] 4 12:24:02 Atrial fibrillation 18606140 Active 2023 HOLDEN LAURENT [address], [place], [address], [facility] 4 12:24:20 Obstructive sleep apnea syndrome 44503502 Active 2023 HOLDEN LAURENT [address], [place], [address], [facility] 4 12:24:31 Asthma 763306293 Active 2023 HOLDEN LAURENT [address], [place], [address], [facility] 4 12:24:36 Hypertensive disorder 14426365 Active 2023 HOLDEN LAURENT [address], [address], [place], [address], [facility] 4 12:24:41 Hyperlipidemia 53798770 Active 2023 HOLDEN LAURENT [address], [place], [address], [facility] 4 12:24:47 Retention of urine 842327632 Active 2023 HOLDEN LAURENT [address], [place], [address], [facility] 4 12:24:53 Opioid dependence 18088277 Active 2023 HOLDEN LAURENT [address], [address], [place], [address], [facility] 4 12:25:08 Diabetes mellitus 51529914 Active 2023 HOLDEN LAURENT [address], [place], [address], [facility] 4 12:25:14 Congestive heart failure 12748028 Active 2023 HOLDEN LAURENT [address], [address], [place], [address], [facility] 4 12:25:21 Gastroesophage al reflux disease 493736377 Active 2023 HOLDEN LAURENT [address], [address], [place], [address], [facility] 4 12:25:30 Hypothyroidism 05022100 Active 2023 HOLDEN LAURENT [address], [address], [place], [address], [facility] 4 12:25:37 Cellulitis 109985509 Active 2023 HOLDEN LAURENT [address], [address], [place], [address], [facility] 4 12:26:22 Arterial insufficiency 331393863 Active 2023 HOLDEN LAURENT [address], [address], [place], [address], [facility] 4 12:26:37 Problem Notes None recorded. Medical Equipment None Reported. Allergies Allergen ID Allergen Name Allergen Category Reaction Reaction Severity Criticality Documentation Date Start Date Code Code System Note Provider Name and Address Organization Details Recorded Time 10337 codeine medicatio n Not available Not available Not available 04/08/2024 2670 RxNorm HOLDEN LAURENT [address], [place], [address], [facility] 4 12:38:31 Medications Name Sig Start Date [...] Updated DateTime 4 152.4 cm 48.5 kg/m2 003219. 27 g 53 /min 18 /min 98.6 [degF] 98 % 98 % 149/77 mm[Hg] Genny Aguilar MD [address] [facility], [facility] [address], [place], [address], [facility] 4 21:34:16 Date Recorded Body height Heart rate Respiratory rate Body temperature Oxygen saturation Oxygen saturation in Arterial blood by Pulse oximetry Systolic And Diastolic Provider Name and Address Organization Details Last Updated DateTime 4 152.4 cm 54 /min 18 /min 98.1 [degF] 96 % 96 % 175/90 mm[Hg] IBETH PRICE NP [address] [facility], [address], [place], [address], [facility] 4 13:49:23 Date Recorded Body height Body mass index (BMI) Body weight Heart rate Respiratory rate Body temperature Oxygen saturation Oxygen saturation in Arterial blood by Pulse oximetry Systolic And Diastolic Provider Name and Address Organization Details Last Updated DateTime 4 152.4 cm 48.4 kg/m2 087532. 91 g 68 /min 18 /min 98.1 [degF] 96 % 96 % 132/72 mm[Hg] Raiza Madsen NP [address] [facility], [facility] [address], [place], [address], [facility] 4 08:19:33 Social History Question Answer Notes LastModified by Organizat ion Details LastModified Time Tobacco Smoking Status Never Smoker Genny Aguilar MD [address] [facility], [facility] [address], [place], [address], [facility] 04/11/2024 21:50:08 Do You Have An Advance Directive? Yes Information not available 04/11/2024 What Is Your Code Status? Full Code Information not available 04/11/2024 Where Do You Live? Apartment With Sister, Elevator Access. Information not available 04/11/2024 Legal Guardian? No Information not available 04/11/2024 Do You Have A Medical Power Of Fan Mail Clerk? Yes Information not available 04/11/2024 What Was [...] ICD10 Code Diagnosis IMO Codes Diagnosis Note [id number] HOLDEN LAURENT [address] [address] 04/08/2024 12:12:39 04/13/2024 15:07:34 Cellulitis 688072118 L03.90 completed antbx for LE cellulitis in ED = did not feel it was recurrence of an acute infectionh /o chronic lymphedema -monitor ss of infection- bacitracin topical to BL legs daily-oxyc odone 5 mg q6h prn for pain Arterial insufficiency 706238204 I77.1 -f/up with vascular per recs needs to be arranged-s ee above Retention of urine 65688 4002 R33.9 unable to urinate since coming from [facility] to facility-w ill order PVR, SC for PVR >400 cc Atrial fibrillation 4943 6004 I48.91 carrying dx-amiodar one 200 mg daily-eliq uis 5 mg bid-monito r HR and bleeding Hypertensive disorder 38 652413 I10 carrying dx-amlodip ine 10 mg daily-leonardo tor BP Depressive disorder 3548 9007 F32.A carrying dx-duloxet ine 20 mg daily-paxi l 40 mg daily-leonardo tor mood and affect-psy ch eval prn Congestive heart failure 78046955 I50.9 carrying dxnot on diuretics- metoprolol 50 mg daily-farx iga 10 mg daily-leonardo tor fluid status closely-da sacha weights Diabetes mellitus 978346 09 E11.9 carrying dxjardianc e was given once in hospital, dont see it on her home med list or dc med list = asked nursing to ask dtr-lantus 65 units HS-monitor accuchecks TID Hypothyroidism 40217024 E03.9 carrying dx-synthro id 50 mcg po in am-TSH/T4 prn Hyperlipidemia 75089813 E78.5 carrying dx-lipitor 80 mg daily Gastroesop hageal reflux disease 503762316 K21.9 carrying dx-omepraz ole 40 mg po daily Obstructiv e sleep apnea syndrome 57432475 G47.33 intermitte nt CPAP use at home Opioid dependence 919850 00 F11.20 -monitor needed support in community- on oxycodone for leg pain = monitor usage and wean as tolerated Dermal mycosis 27702822 B36.9 yeast infection of groin-nyst atin TID x 7 days Anxiety 56482840 F41.9 -hydroxyzi ne 25 mg q8h prn for anxiety [id number] Genny Aguilar MD [address] [address] 04/11/2024 20:47:59 04/17/2024 10:31:08 Cellulitis 602489749 L03.116 Resolved, now with healing wounds.Is getting very itchy, has hydroxyzin e ordered 25 mg q 8 hrs prn, but pt requests benadryl.W ill start diphenhydr amine 25 mg q 4 hrs prn.Contin ue bacitracin topical to BL legs qd and oxycodone 5 mg q 6 hrs prn for pain.Monit or for healing. Arterial insufficiency 628060181 I77.1 F/U with vascular as planned.Mo rubén ramos n. Retention of urine 77351 4002 R33.8 Improved, continue to monitor. Atrial fibrillation 4943 6004 I48.0 Rate in good control on amiodarone 200 mg daily and metoprolol 50 mg daily.Cont inue eliquis 5 mg BID for AC.Monitor HR and bleeding risk. Hypertensive disorder 38 533246 I10 Fair control on amlodipine 10 mg daily and metoprolol 50 mg daily.Leonardo tor BP and labs. Depressive disorder 3548 9007 F33.8 Mood good tonight, aside form wanting to go home.Nicanor nue duloxetine 20 mg daily, paroxetine 40 mg daily, trazadone 50 mg at bedtime, and melatonin 5 mg at bedtime.Mo nitor moodPsych consult prn Congestive heart failure 78695687 I50.32 Appears euvolemic. Continue meds as above and Farxiga 10 mg daily.Leonardo tor resp. status, fluid status, wts and labs. Diabetes mellitus 575310 09 E11.9 In good control since here.Nicanor nue lantus 65 units daily and Farxiga 10 mg daily.Leonardo tor accuchecks TID Hypothyroidism 63796823 E03.8 Continue levothyrox ine 50 mcg dailyMonit or TSH prn. Hyperlipidemia 71878061 E78.49 Continue atorvastat in 80 mg dailyMonit or labs as outpt. Gastroesop hageal reflux disease 278163447 K21.9 No current sxs.Contin ue omeprazole 40 mg dailyMonit or GI sxs. Obstructiv e sleep apnea syndrome 27166581 G47.33 Continue CPAP with sleep.F/U prn. Opioid dependence 059446 00 F11.20 On oxycodone chronicall y.Monitor use and f/u with pcp as planned. Candidiasis of vagina 72 343852 B37.31 Not improving with nystatin.W ill start diflucan 150 mg x 1 and repeat in 1 wk. [id number] IBETH PRICE NP [address] [address] 04/18/2024 08:27:20 04/19/2024 14:02:05 Cellulitis 785047328 L03.116 Improved. now with healing woundsdiph enhydramin [...] BMP x 1 in am Arterial insufficiency 172729420 I77.1 F/U with vascular as planned.Anthony sotelo.Refer to [facility] for outpt. mgmt. upon d/c. Retention of urine 82820 4002 R33.8 Improved, continue to monitor. Atrial fibrillation 4943 6004 I48.0 Rate in good control on amiodarone 200 mg daily and metoprolol 50 mg daily.Cont inue eliquis 5 mg BID for AC.Monitor HR and bleeding risk. Hypertensive disorder 38 446667 I10 Fair control on amlodipine 10 mg [...] [place] moodPsych consult prn Congestive heart failure 99292522 I50.32 Appears euvolemic. Continue meds as above and Farxiga 10 mg daily.Leonardo tor resp. status, fluid status, wts and labs. Diabetes mellitus 836844 09 E11.9 In fair control since here.Nicanor nue lantus 65 units daily and Farxiga 10 mg daily.Leonardo tor accuchecks TID Hypothyroidism 06802358 E03.8 Continue levothyrox ine 50 mcg dailyMonit or TSH prn. Hyperlipidemia 75751220 E78.49 Continue atorvastat in 80 mg dailyMonit or labs as outpt. Gastroesop hageal reflux disease 609343379 K21.9 No current sxs.Contin ue omeprazole 40 mg dailyMonit or GI sxs. Obstructiv e sleep apnea syndrome 99981120 G47.33 Continue CPAP with sleep.F/U prn. Opioid dependence 894776 00 F11.20 On oxycodone chronicall y.Monitor use and f/u with pcp as planned. Candidiasis of vagina 72 197709 B37.31 Not improving with nystatin.D iflucan 150 mg x 1 given, to repeat in 1 wk. [id number] [facility] [place] [address] 04/19/2024 08:18:47 04/20/2024 13:31:13 Cellulitis 145780528 L03.116 resolved with abx in hospitalno w [...] pcp, and wound clinica oupt Arterial insufficiency 185062703 I77.1 F/U with vascular as planned.Re marichuy to [facility] for outpt. mgmt. upon d/c. (referral given)vna services outpt with pcp to follow outpt with wound clinic Retention of urine 06093 4002 R33.8 Improved, continue to monitor. Atrial fibrillation 4943 6004 I48.0 Rate in good control on amiodarone 200 mg daily and metoprolol 50 mg daily.Cont inue eliquis 5 mg BID for AC.Monitor outpt with pcp and cardiology outpt Hypertensive disorder 38 427244 I10 hospital dc'd losartan 50 mg po [...] outptPsych consult prn outpt Congestive heart failure 79224109 I50.32 Appears euvolemic. Continue meds as above and Farxiga 10 mg daily.Leonardo tor outpt with pcp Diabetes mellitus 301505 09 E11.9 In fair control since here. 100-200s? if higher 200s related to infectiona lso glipizide and metformin was dc in hosp for ckd, monitor for need to add with pcp outptConti nuelantus 65 units dailyFarxi ga 10 mg daily.Leonardo tor accuchecks TID at home and bring log to pcp on 04/26/24. Hypothyroidism 65990994 E03.8 Continuele vothyroxin e 50 mcg dailyMonit or TSH prn outpt withpcp Hyperlipidemia 69394520 E78.49 Continue atorvastat in 80 mg dailyMonit or labs as outpt. Gastroesop hageal reflux disease 500746494 K21.9 No current sxs.Contin ueomeprazo le 40 mg dailyMonit or GI sxs. outpt with pcp Obstructiv e sleep apnea syndrome 52453959 G47.33 Continue CPAP with sleep.F/U prn outpt prn Opioid dependence 360831 00 F11.20 On oxycodone chronicall y.will cont on home dose and since on chronicall y will not send with any additional oxycodoneM onitor use and f/u with pcp as planned outpt Candidiasis of vagina 72 309451 B37.31 Not improving with nystatin.D iflucan 150 mg x 1 given at rehabmonit or with pcp outpt Chronic ki dney disease 209407339 N18.9 ckd per hosp paperwork with meds adjusted:g lipizide, losartan, furosemide , and metformin were dc'dlabs as [facility] and need to adjust outpt with pcp Pain in le ft lower limb 266867960 M79.605 addendumpt was ready for discharge and now reporting left lower leg pain and states she can't put weight on itwhen attempting to get dressed for homefamily refuses therapy eval and xray here,famil y requests 911 call, and emergent evaluation at [facility] Health Concerns Section Related Observation LastModified by Organization Detai ls LastModified Time None Recorded Concern Status LastModified by Organization Details LastModified Time None Recorded Advance Directives Directive Y: Payers Insurance Date Sequence Insurance Name Policy Number Policy Meza Covered Member ID Meza Member ID Guarantor Name 04/19/2024 1 [facility] - DOS ON OR AFTER 2022 - MEDICARE ADVANTAGE [place] (MEDICARE REPLACEMENT/ADV ANTAGE - PPO) Mary Lou Cisneros [id number] Mary Lou Cisneros Notes Date Note Type Note Provider Name and Address Organization Details Recorded Time 04/08/2024 text/html Patient is a 73 yo female being seen for initial intake visit. She presented to [facility] for eval of left leg pain. [...] PT and was recommended for transfer to [facility] for continued care and rehab. On arrival from hospital patient reporting to nursing that she hasnt urinated. No report of this occurring while she was at [facility] and she did not have a [...] opiate dependence, hld, htn, DM REBECA SOTOMAYOR, BALANCE ENGINEER-C [address] [place] [address], [address], [place], [address], [facility] 04/08/2024 13:05:26 04/11/2024 text/html This is a 73 yo woman who is here for rehab after an ED visit for left leg pain after recovery from recent cellulitis.[facility], txed with ceftriaxone and [...] OA, OP, and fibromyalgia. Genny Aguilar MD [address] [place] [address], [address], [place], [address], [facility] 04/14/2024 20:04:50 04/18/2024 text/html This is a 73 yo woman who is here for rehab after an ED visit for left leg pain after recovery from recent cellulitis.She [facility], txed with ceftriaxone and [...] OP, and fibromyalgia. IBETH PRICE NP [address] [facility], [address], [place], [address], [facility] [employer] [facility] 04/18/2024 14:21:33 04/19/2024 text/html This is a [...] note per records:She [facility], txed with ceftriaxone and [...] outpt with pcp She was transferred to [facility] for rehab on 04/08 and working with rehab showing improvement and felt she is stable to discharge home. Vitals stable here and BP labile, last at 132/72 this am. While at [facility] she was seen by the wound team [...] 2024. She will be picked up by [facility] @ 1:00 PM. A referral has been made to [facility] for ongoing skilled services. She will be [...] 2024. She will be picked up by [facility] @ 1:00 PM. A referral has been made to [facility] for ongoing skilled services. She will be [...] she goes home from ER. discussed with long term care administrator at facility Raiza Madsen NP [address] [facility], [address], [place], [address], [facility] 04/19/2024 13:13:44 OBGyn Episode No OBEpisode recorded.
--- OUTSIDE RECORDS SUMMARY | 2025-06-11 04:09 | XMS_ITS | Encounter Summary ---
Author Organization [facility] Address [address] [facility] 7t [place] [address] Care Team Providers Care Building Maintenance Superintendent Name Role Phone Amanda Watkins MD Primary Care Provide r Hiro Ram Unavailable Unavailable Raad Arias PharmD Unavailable [phone] Reason for Visit * Reason Comments Med Refill Encounter Details Date Type Department Care Team (Late st Contact Info) Description 11/18/2023 Refill [facility] [address] [place] [address] Hiro Ram FNP Social History Tobacco Use [...] Description 06/11/2025 3:15 PM EST Office Visit [facility] [address] [place] [address] Amanda Watkins MD [address] [place] [address] 07/09/2025 3:30 PM EST Office Visit [address] [address] Amanda Watkins MD [address] [place] [address] 09/21/2025 10:00 AM EST Telemedicine [address] [address] Kayley Alanis RN documented as of this encounter Visit Diagnoses Not on filedocumented in this encounter Additional Health Concerns Assessment Noted Time PHQ-9 Depression Total Score: 8 07/19/20 23 11:34 AM EST documented as of this encounter Care Teams Building Maintenance Superintendent Relationship Specialty Start Date End Date Amanda Watkins MD [address] [place] [address] PCP - General Family Medicine 04/07/19 Hiro Ram FNP [address] [place] [address] Nurse Practitioner Family Medicine 07/06/23 Raad Arias, PharmD [address] [facility] [place] [address] Pharmacist Internal Medicine 10/19/24 [facility] 07/03/22 08/16/24 Ja [facility] 08/10/24 03/12/25 [facility] 03/08/25 documented as of this encounter
--- OUTSIDE RECORDS SUMMARY | 2025-06-11 04:09 | XMS_ITS | Encounter Summary ---
Author Organization [employer] Address [address] [facility] 7t [place] [address] Care Team Providers Care Streetcar Motorman Name Role Phone Amanda Watkins MD Primary Care Provide r Hiro Ram STACKER ATTENDANT Unavailable Unavailable Raad Arias PharmD Unavailable [phone] Reason for Visit * Reason Onset Date Comments Hospital Follow-up 08/16/2024 Encounter Details Date Type Department Care Team (Late st Contact Info) Description 08/16/2024 Telephone [facility] [address] [place] [address] Amanda Watkins MD [address] [place], [place] [phone] Hospital Follow-up Social History Tobacco Use Types [...] from pt requesting a HDF appt. Hospital: [facility] Date of admission: 08/12/24 Discharge date: 08/15/2024 Diagnosed: (water in the lungs) *Send message to [place] Clinical Care Coordinators documented in this encounter Plan of Treatment Upcoming Encounters Date Type Department Care Team (Late st Contact Info) Description 06/11/2025 3:15 PM EST Office Visit [facility] [address] [place] [address] Amanda Watkins MD [address] [place] [address] 07/09/2025 3:30 PM EST Office Visit [facility] [address] [place] [address] Amanda Watkins MD [address] [place] [address] 09/21/2025 10:00 AM EST Telemedicine [facility] [address] [place] [address] Kayley Alanis, RN documented as of this encounter Visit Diagnoses Not on filedocumented in this encounter Additional Health Concerns Assessment Noted Time PHQ-9 Depression Total Score: 10 024 3:23 PM EDT documented as of this encounter Care Teams Streetcar Motorman Relationship Specialty Start Date End Date Amanda Watkins MD [address] [place] [address] PCP - General Family Medicine 04/07/19 Hiro Ram FNP [address] [place] [address] Nurse Practitioner Family Medicine 07/06/23 Raad Arias, TheaD [address] [place] [address] Pharmacist Internal Medicine 10/19/24 [facility] 07/03/22 08/16/24 [facility] 08/10/24 03/12/25 [facility] 03/08/25 documented as of this encounter
--- OUTSIDE RECORDS SUMMARY | 2025-06-11 04:09 | XMS_ITS | Patient Health Record ---
Author Organization [facility] Address [address] [facility] [address] [place] [address] Care Team Providers Care Ironer Hand Name Role Phone Amanda Adame M.D. Primary Care Provider João Woodward Jr Results Component Value Reference Range Notes Pathology Reviewed date:03/21/2025 08:46:31 AM Interpretation: Performing Lab:[facility], [address] [place] [address] Notes/Report: Reason For Referral No Information Problems Problem Type SNOMED Code ICD Code Onset Dates Problem Status W/U Status Risk Notes Problem Iron deficiency anemia (06299989) Iron deficiency anemia (D50.9) Active confirmed Problem Gastritis (7232310) Gastritis (K29.70) Active confirmed Encounters Encounter Location Date Provider Diagnosis [facility] [address] [place] [id number] 03/06/2025 João Leon Jr [facility] [address] [place] [address] 03/21/2025 João Leon Jr Plan Of Treatment Next Appt Details Provider Name:João yañez Jr, 07/26/2025 02:15:00 PM, [address] [facility], [address], [place], [address], Insurance Providers Payer Name Payer Address Payer Phone Subscriber Number Group Number Insured Name Patient Relationship to Insured Coverage Start Date Coverage End Date [facility] [address] Attn Claims CARLOS Varma [id number] JP MORGAN Self - patient is the insured
--- OUTSIDE RECORDS SUMMARY | 2025-06-11 04:09 | XMS_ITS | Encounter Summary ---
Author Organization [employer] Address [address] [facility] 7t [place] [address] Care Team Providers Care Pellet Mill Operator Name Role Phone Amanda Watkins MD Primary Care Provide r Hiro Ram MEDICAL BILLING COORDINATOR Unavailable Unavailable Raad Arias PharmD Unavailable [phone] Reason for Visit * Reason Onset Date Comments Durable Medical Equipment 01/09/2025 Encounter Details Date Type Department Care Team (Late st Contact Info) Description 01/09/2025 Telephone [facility] [address] [place] [address] Amanda Watkins MD [address] [place] [address] Durable Medical Equipment Social History Tobacco Use [...] Description 06/11/2025 3:15 PM EST Office Visit [facility] [address] [place] [address] [phone] Amanda Watkins MD [address] [place] [address] 07/09/2025 3:30 PM EST Office Visit [facility] [address] [place] [address] Amanda Watkins MD [address] [place] [address] 09/21/2025 10:00 AM EST Telemedicine [facility] [address] [place] [address] Kayley Alanis RN documented as of this encounter Visit Diagnoses Not on filedocumented in this encounter Additional Health Concerns Assessment Noted Time PHQ-9 Depression Total Score: 0 09/01/19 1:18 PM EST documented as of this encounter Care Teams Pellet Mill Operator Relationship Specialty Start Date End Date Amanda Watkins MD [address] [place] [address] PCP - General Family Medicine 04/07/19 Hiro Ram FNP [address] [place] [address] Nurse Practitioner Family Medicine 07/06/23 Raad Arias, TheaD [address] [place] [address] Pharmacist Internal Medicine 10/19/24 Ja [facility] 08/10/24 03/12/25 [facility] 03/08/25 documented as of this encounter
--- OUTSIDE RECORDS SUMMARY | 2025-06-11 04:09 | XMS_ITS | Encounter Summary ---
Author Organization [employer] Address [address] [facility] 7t [place] [address] Care Team Providers Care Piecer Up Name Role Phone Amanda Watkins MD Primary Care Provide r Hiro Ram WATER AEROBICS INSTRUCTOR Unavailable Unavailable Raad Arias PharmD Unavailable [phone] Encounter Details Date Type Department Care Team (Latest Contact Info) Description 06/08/2025 Travel Social History Tobacco Use Types Packs/Day [...] 06/11/2025 3:15 PM EST Office Visit [address] [address] Amanda Watkins MD [address] [place] [address] 07/09/2025 3:30 PM EST Office Visit [address] [address] Amanda Watkins MD [address] [place] [address] 09/21/2025 10:00 AM EST Telemedicine [address] [address] Kayley Alanis RN documented as of this encounter Visit Diagnoses Not on filedocumented in this encounter Additional Health Concerns Assessment Noted Time PHQ-9 Depression Total Score: 14 025 2:41 PM EDT documented as of this encounter Care Teams Piecer Up Relationship Specialty Start Date End Date Amanda Watkins MD [address] [place] [address] PCP - General Family Medicine 04/07/19 Hiro Ram FNP [address] [place] [address] Nurse Practitioner Family Medicine 07/06/23 Raad Arias, PharmD [address] [place] [address] [place] [address] Pharmacist Internal Medicine 10/19/24 [facility] 03/08/25 documented as of this encounter
--- OUTSIDE RECORDS SUMMARY | 2025-06-11 04:09 | XMS_ITS | Encounter Summary ---
Author Organization [employer] Address [address] [facility] 7t [place] [address] Care Team Providers Care Sales Manager Prearranged Funerals Name Role Phone Amanda Watkins MD Primary Care Provide r Hiro Ram VARNISHER APPRENTICE Unavailable Unavailable Raad Arias PharmD Unavailable [phone] Reason for Visit * Reason Onset Date Comments Med Refill 01/16/2025 Encounter Details Date Type Department Care Team ([facility] st Contact Info) Description 01/16/2025 Telephone [facility] MEDICINE [address] [place] [address] Amanda Watkins MD [address] [place] [address] Med Refill Social History Tobacco Use Types [...] 75 MCG tablet To be sent to: [facility] documented in this encounter Plan of Treatment Upcoming Encounters Date Type Department Care Team (Late st Contact Info) Description 06/11/2025 3:15 PM EST Office Visit [facility] MED[facility]INE [address] [place] [address] Amanda Watkins MD [address] [place] [address] 07/09/2025 3:30 PM EST Office Visit [facility] [address] [place] [address] Amanda Watkins MD [address] [place] [address] 09/21/2025 10:00 AM EST Telemedicine [facility] [address] [place] [address] Kayley Alanis RN documented as of this encounter Visit Diagnoses Not on filedocumented in this encounter Additional Health Concerns Assessment Noted Time PHQ-9 Depression Total Score: 0 09/01/19 1:18 PM EST documented as of this encounter Care Teams Sales Manager Prearranged Funerals Relationship Specialty Start Date End Date Amanda Watkins MD [address] [place] [address] PCP - General Family Medicine 04/07/19 Hiro Ram FNP [address] [place] [address] Nurse Practitioner Family Medicine 07/06/23 Raad Arias, Carlos [address] [place] [address] Pharmacist Internal Medicine 10/19/24 Ja A 08/10/24 03/12/25 [facility] 03/08/25 documented as of this encounter
--- OUTSIDE RECORDS SUMMARY | 2025-06-11 04:09 | XMS_ITS | Encounter Summary ---
Author Organization [employer] Address [address] [place] [address] 7t [place] [address] Care Team Providers Care Room Server Name Role Phone Amanda Watkins MD Primary Care Provide r Hiro Ram SEAFOOD FISHERMAN Unavailable Unavailable Raad Arias PharmD Unavailable [phone] Encounter Details Date Type Department Care Team ([facility] st Contact Info) Description 09/06/[address] [facility] [address] [place], [place] [phone] MiltonWaldemar Chance MD [address] [place] [address] Social History Tobacco Use Types Packs/Day Years [...] Description 06/11/2025 3:15 PM EST Office Visit [address] [address] Amanda Watkins MD [address] [place] [address] 07/09/2025 3:30 PM EST Office Visit [address] [address] Amanda Watkins MD [address] [place] [address] 09/21/2025 10:00 AM EST Telemedicine [address] [address] Kayley Alanis RN documented as of this encounter Visit Diagnoses Not on filedocumented in this encounter Additional Health Concerns Assessment Noted Time PHQ-9 Depression Total Score: 0 09/01/19 25 1:18 PM EST documented as of this encounter Care Teams Room Server Relationship Specialty Start Date End Date Amanda Watkins MD [address] [place] [address] PCP - General Family Medicine 04/07/19 Hiro Ram FNP [address] [place] [address] Nurse Practitioner Family Medicine 07/06/23 Raad Arias, TheaD [address] [place] [address] Pharmacist Internal Medicine 10/19/24 Ja [facility] 08/10/24 03/12/25 [facility] 03/08/25 documented as of this encounter
--- OUTSIDE RECORDS SUMMARY | 2025-06-11 04:09 | XMS_ITS | Encounter Summary ---
Author Organization [employer] Address [address] [facility] 7t [place] [address] Care Team Providers Care Yard Spotter Name Role Phone Amanda Watkins MD Primary Care Provide r Hiro Ram MANAGER BEVERAGE Unavailable Unavailable Raad Arias PharmD Unavailable [phone] Reason for Visit * Reason Comments Med Refill Encounter Details Date Type Department Care Team (Late st Contact Info) Description 02/11/2024 Refill [facility] [address] [place] [address] Amanda Watkins MD [address] [place], [place] [phone] Type 2 diabetes mellitus with other specified complication, unspecified whether medical terminologist insulin use ([facility]) Social History Tobacco Use Types [...] Description 06/11/2025 3:15 PM EST Office Visit [address] [address] Amanda Watkins MD [address] [place] [address] 07/09/2025 3:30 PM EST Office Visit [address] [address] Amanda Watkins MD [address] [place] [address] 09/21/2025 10:00 AM EST Telemedicine [address] [address] Kayley Alanis RN documented as of this encounter Visit Diagnoses Diagnosis Type 2 diabetes mellitus with other specified complication, unspecified whether penitentiary insulin use (HCC) documented in this encounter Additional Health Concerns Assessment Noted Time PHQ-9 Depression Total Score: 10 024 3:23 PM EDT documented as of this encounter Care Teams Yard Spotter Relationship Specialty Start Date End Date Amanda Watkins MD [address] [place] [address] PCP - General Family Medicine 04/07/19 Hiro Ram FNP [address] [place] [address] Nurse Practitioner Family Medicine 07/06/23 Raad Arias, TheaD [address] [place] [address] Pharmacist Internal Medicine 10/19/24 [facility] 07/03/22 08/16/24 Ja [facility] 08/10/24 03/12/25 [facility] 03/08/25 documented as of this encounter
--- OUTSIDE RECORDS SUMMARY | 2025-06-11 04:09 | XMS_ITS | Encounter Summary ---
Author Organization [email or web address] Address [address] [facility] 7t [place] [address] Care Team Providers Care Special Events Assistant Name Role Phone Amanda Watkins MD Primary Care Provide r Hiro Ram COVERAGE SPECIALIST Unavailable Unavailable Raad Arias PharmD Unavailable [phone] Reason for Visit * Reason Comments Med Refill Encounter Details Date Type Department Care Team (Late st Contact Info) Description 07/05/2024 Refill [facility] [address] [place] [address] Amanda Watkins MD [address] [place], [place] [phone] Social History Tobacco Use Types Packs/Day Years [...] Description 06/11/2025 3:15 PM EST Office Visit [address] [address] Amanda Watkins MD [address] [place] [address] 07/09/2025 3:30 PM EST Office Visit [address] [address] Amanda Watkins MD [address] [place] [address] 09/21/2025 10:00 AM EST Telemedicine [address] [address] Kayley Alanis, PHILLIP documented as of this encounter Visit Diagnoses Not on filedocumented in this encounter Additional Health Concerns Assessment Noted Time PHQ-9 Depression Total Score: 10 024 3:23 PM EDT documented as of this encounter Care Teams Special Events Assistant Relationship Specialty Start Date End Date Amanda Watkins MD [address] [place] [address] PCP - General Family Medicine 8/30/19 Hiro Ram FNP [address] [place] [address] Nurse Practitioner Family Medicine 07/06/23 Raad Arias, TheaD [address] [place] [address] Pharmacist Internal Medicine 10/19/24 [facility] 07/03/22 08/16/24 Ja [facility] 08/10/24 03/12/25 [facility] 03/08/25 documented as of this encounter
--- OUTSIDE RECORDS SUMMARY | 2025-06-11 04:09 | XMS_ITS | Encounter Summary ---
Author Organization [employer] Address [address] [facility] 7t [place] [address] Care Team Providers Care Mobile Crane Operator Name Role Phone Amanda Watkins MD Primary Care Provide r Hiro Ram SHIP ENGINEER Unavailable Unavailable Raad Arias PharmD Unavailable [phone] Reason for Referral * Medications - Closed Specialty Diagnoses / Procedures Referred By Contlinda t Referred To Contact Diagnoses Chronic bilateral low back pain with bilateral sciatica Amanda Watkins MD [address] [place] [address] Phone: tel: fax: Referral ID Status Reason Start Date Expiration Date Visits Re quested Visits Authorized [id number] Closed 1 1 Reason for Visit * Reason Onset Date Comments Med Refill 06/08/2025 Encounter Details Date Type Department Care Team (Late st Contact Info) Description 06/08/2025 Refill [facility] [address] [place] [address] Kayley Alanis RN Chronic bilateral low back [...] Description 06/11/2025 3:15 PM EST Office Visit [facility] [address] [place] [address] Amanda Watkins MD [address] [place] [address] 07/09/2025 3:30 PM EST Office Visit [address] [address] Amanda Watkins MD [address] [place] [address] 09/21/2025 10:00 AM EST Telemedicine [facility] [address] [place] [address] Kayley Alanis RN documented as of this encounter Visit Diagnoses Diagnosis Chronic bilateral low back pain with bilateral sciatica documented in this encounter Additional Health Concerns Assessment Noted Time PHQ-9 Depression Total Score: 14 025 2:41 PM EDT documented as of this encounter Care Teams Mobile Crane Operator Relationship Specialty Start Date End Date Amanda Watkins MD [address] [place] [address] PCP - General Family Medicine 04/07/19 Hiro Ram FNP [address] [place] [address] Nurse Practitioner Family Medicine 07/06/23 Raad Arias, TheaD [address] [place] [address] Pharmacist Internal Medicine 10/19/24 [facility] 03/08/25 documented as of this encounter
--- OUTSIDE RECORDS SUMMARY | 2025-06-11 04:09 | XMS_ITS ---
[address] [address] [address] Scan Report Signed with Tosin Patient: Mary Lou Godwin MR#: [id number] : 1950 Acct:[id number] Age/Sex: 74 / F ADM Date: 04/17/25 Loc: HO.ED Attending Dr: Ordering Physician: Kassy Barnard DO Date of Service: 04/17/25 Procedure(s): CT shoulder RT wo IV con Accession Number(s): [id number] cc: Amanda Watkins MD; Kassy Barnard DO Report Number: [id number]: Total DLP = 476.00 mGy-cm Reason for [...] RT MIN 2V - 03/11/25 08:[address]/SD/SR - CT SHOULDER RT WO IV CON [...] in OV> 04/17/252124 DD/ 22 TD/TT: 04/17/252122 Trenching Machine Operator: Procedure Note Donotuseinterpreter, Image - 04/17/[address] [place] [address] [address] Scan Report Signed with Addenda Patient: Mary Lou Godwin ZMR#: [id number] : 9Acct:[id number] Age/Sex: 74 / FADM Date: 04/17/25 Loc: HO.ED Attending Dr: Ordering Physician: Kassy Barnard DO Date of Service: 04/17/25 Procedure(s): CT shoulder RT wo IV con Accession Number(s): [id number] cc: Amanda Watkins MD; Kassy Barnard DO Report Number: [id number]: Total DLP = 476.00 mGy-cm Reason for [...] RT MIN 2V - 03/11/25 08:[address]/SD/SR - CT SHOULDER RT WO IV CON [...] in OV> 04/17/252124 DD/ 22 TD/TT: 04/17/252122 Trenching Machine Operator: [facility] External Provider IMG CT PROCEDURES Edited Result - Final * Lactic Acid (04/17/2025 10:07 AM EDT) Lactic Acid 1.0 0.5 - 2.0 mmol/L [facility] 04/17/2025 10:0 7 AM EDT 04/17/2025 10:12 PM EDT Generic External Data Provider LAB BLOOD ORDERAB LES Final Result Performing Organization Address City/State/[facility] Co de Phone Number [facility] [address] [place] [address] [phone] * XR Shoulder 2+ Views Right (03/11/2025 8:21 AM EDT) Anatomical Region Laterality Modality Upper Extremities, Shoulder Right Radi ographic Imaging 03/11/2025 8:21 AM EDT Narrative 03/11/2025 8:23 AM EDT [address] [address] XRay Report Signed Patient: Mary Lou Godwin MR#: [id number] : 1950 Acct:[id number] Age/Sex: 74 / F ADM Date: 03/11/25 Loc: .ED Attending Dr: Ordering Physician: Yelena Alvarez MD Date of Service: 03/11/25 Procedure(s): XR shoulder RT min 2V Accession Number(s): [id number] cc: Amanda Watkins MD; Yelena Alvarez MD [...] in OV> 03/11/25821 DD/ 0 TD/TT: 03/11/25820 Trenching Machine Operator: Procedure Note Donotuseinterpreter, Image - 03/11/[address] [address] XRay Report Signed Patient: Mary Lou Godwin ZMR#: [id number] : 9Acct:[id number] Age/Sex: 74 / FADM Date: 03/11/25 Loc: .ED Attending Dr: Ordering Physician: Yelena Alvarez MD Date of Service: 03/11/25 Procedure(s): XR shoulder RT min 2V Accession Number(s): [id number] cc: Amanda Watkins MD; Yelena Alvarez MD [...] in OV> 03/11/25821 DD/ 0 TD/TT: 03/11/25820 Trenching Machine Operator: us [facility] External Provider IMG XR PROCEDURES Edited Result - Final * (ABNORMAL) Lipid Panel, Standard (09/01/2024 2:09 PM EST) Triglycerides 241(H) <150 mg/dL [facility] Comment:Desirable Triglyceri de: less than 150 mg/dLBorderline High Triglyceride 150-199 mg/dLHigh Triglyceride: 200-499 mg/dLVery High Triglyceride: greater than or equal to 5OO mg/dL Cholesterol 107 <200 mg/dL [facility] Comment:Desirable Cholestero l: less than 200 mg/dLBorderline High Cholesterol: 200-239 mg/dLHigh Cholesterol: greater than 239 mg/dL LDL Cholesterol Calculated 34 <100 mg/dL [facility] Comment:Desirable LDL: less than 100 mg/dLNear Optimal/Above Optimal LDL: 110- 129 mg/dLBorderline High LDL: 130-159 mg/dLHigh LDL: 160-189 mg/dLVery High LDL: greater than or equal to 190 mg/dL HDL Cholesterol 25(L) >40 mg/dL [facility] Comment:Desirable HDL: great er than 40 mg/dL Note: This HDL assay may give artificially low results in patients with liver disease. 09/01/2024 2:09 PM EST 09/01/2024 4:09 PM EST us Amanda Myers MD LAB BLOOD ORDERABLES Final Result [facility] [address] [place] [phone] * (ABNORMAL) ALBUMIN, RANDOM URINE W/CREATININE [...] [facility] [address] from Last 3 Months or Most Recently Relevant to Health Maintenance Insurance [facility] OPTIONS (HMO D-SNP) [facility] STANDARD Care Teams Hydroelectric Powerplant Supervisor Relationship Specialty Start Date End Date Amanda Watkins MD [address] [place] [phone] PCP - General Family Medicine 04/07/19 Hiro Ram FNP [address] [place] [address] Nurse Practitioner Family Medicine 07/06/23 Raad Arias PharmD [address] [place] [phone] Pharmacist Internal Medicine 10/19/24 [employer] [facility] 03/08/25 Clinical Summary Created on: June 11, 2025 Mary Lou Godwin : 1950 Sex: Female Author Organization [facility] Address [address] [place] [address] [address] [place] [address] Care Team Providers Care Hydroelectric Powerplant Supervisor Name Role Phone Amanda Watkins MD Primary Care Provide r Lauter, Hiro RETAIL EVENT AND SALES ASSISTANT Unavailable Unavailable Raad Arias PharmD Unavailable [phone] Allergies Active Allergy Reactions Criticality Noted Date [...] hyperglycemia, with long-term current use of insulin ([facility]) Use to test blood sugar 3 times daily 100 each 12 024 2024 Active Blood Glucose Monitoring Suppl (FreeStyle [place] Lite) w/Device kitIndications:Ty pe 2 diabetes mellitus with hyperglycemia, with long-term current use of insulin ([facility]) Use to test blood sugar 3 [...] hyperglycemia, with long-term current use of insulin ([facility]) Inject 64 units under the skin daily 18 mL 5 025 Active pen needle 32G x 4 mm miscIndications:T ype 2 diabetes mellitus with hyperglycemia, with long-term current use of insulin ([facility]) Use daily with insulin 100 each 3 025 2025 Active traZODone (Desyrel) 150 MG tabletIndications :Recurrent major depressive episodes, mild (CMS/HCC) Take 1 tablet (150 mg) by mouth at bedtime. 90 tablet 2 025 Active TRUEplus Lancets 33G miscIndications:T ype 2 diabetes mellitus with hyperglycemia, with long-term current use of insulin ([facility]) USE DIRECTED TO TEST BLOOD SUGAR THREE [...] mg) by mouth at bedtime. 90 tablet Active amLODIPine (Norvasc) 5 MG tablet TAKE 1 TABLET BY MOUTH EVERY MORNING 30 tablet 3 025 Active Alcohol Swabs (Alcohol Prep) 70 % padsIndications:T ype 2 diabetes mellitus with hyperglycemia ([facility]) USE DIRECTED TO TEST BLOOD SUGAR THREE TIMES DAILY 100 each Active Ferrocite 324 MG tablet Take 1 tablet by mouth Once per day. Active Continuous Glucose Box Tender (FreeStyle Mickey 3 Virgin) deviceIndications :Type 2 diabetes mellitus with diabetic autonomic neuropathy, with long-term current use of insulin ([facility]) 1 each Once per day. Use as directed for CGM 1 each Active Continuous Glucose Sensor (FreeStyle Mickey 3 Plus Sensor) miscIndications:T ype 2 diabetes mellitus with diabetic autonomic neuropathy, with long-term current use of insulin ([facility]) 1 each every 15 days. Apply 1 every 15 days as directed for CGM 2 each Active atorvastatin (Lipitor) 80 MG tablet TAKE 1 TABLET BY MOUTH AT BEDTIME 90 tablet 1 Active Diclofenac Sodium 1 % gelIndications:De generative arthritis of thumb, right Apply 1 Application topically every 12 (twelve) hours if needed (apply if needed). 150 g 1 Active gabapentin (NEURONTIN) 400 MG tabletIndications :Chronic pain of both shoulders Take 1 tablet (400 mg) by mouth 3 times daily. 90 tablet 2 025 2025 Active Tirzepatide (Mounjaro) 7.5 MG/0.5ML solution auto-injectorIndi cations:Type 2 diabetes mellitus with hyperglycemia, with long-term current use of insulin ([facility]) Inject 7.5 mg under the skin 1 (one) time per week. 2 mL 1 Active torsemide (Demadex) 20 MG tablet TAKE 1 TABLET BY MOUTH EVERY MORNING 30 tablet 3 Active docusate sodium (Colace) 100 MG capsuleIndication s:Slow transit constipation TAKE 1 CAPSULE BY MOUTH TWICE DAILY 60 capsule 3 025 Active DULoxetine (Cymbalta) [address] capsule TAKE 1 CAPSULE BY MOUTH EVERY MORNING 30 capsule 1 10/16/2 025 Active oxyCODONE-acetami nophen (Percocet) 5-325 MG tabletIndications :Chronic bilateral low back pain with bilateral sciatica Take 1 tablet by mouth every 6 (six) hours if needed for severe pain for up to 28 days. 112 tablet 025 2024 Active torsemide (Demadex) 20 MG tablet TAKE 1 TABLET BY MOUTH EVERY MORNING 30 tablet 3 2024 Discontinued docusate sodium (Colace) 100 MG capsuleIndication s:Slow transit constipation Take 1 capsule (100 mg) by mouth 2 times daily. 60 capsule 1 2024 Discontinued DULoxetine (Cymbalta) [address] capsule Take 1 capsule (20 mg) by mouth in the morning. 30 capsule 2024 Discontinued oxyCODONE-acetami nophen (Percocet) 5-325 MG tabletIndications :Chronic bilateral low back pain with bilateral sciatica Take 1 tablet by mouth every 6 (six) hours if needed for severe pain for up to 5 days. 15 tablet 2024 Discontinued(R eorder (will not trigger notification [...] Assessment & Plan (09/14/2024 6:46 PM EST): Supervisor Park Workers referral done today I advised not to [...] for patient Stage 3b chronic kidney disease ([facility]) 2023 Arthritis 04/24/2024 Bronchitis 04/24/2024 Obesity 04/24/2024 Atrial fibrillation ([facility]) 04/08/2024 Assessment & Plan (02/15/2025 10:55 AM [...] medications every day I advised low-sodium diet Supervisor Park Workers referral done today I advised to monitor [...] retiring, patient will be transferred to new [facility] psychiatric provider. Patient is aware that appointments will be via televisit. Any issues or concerns contact [facility]. All her questions were answered and [...] advise low-sodium diet I advised weight reduction Supervisor Park Workers referral done Assessment & Plan (12/06/2023 2:12 [...] weeks with nurse then 3 months with nh Assessment & Plan (11/18/2022 3:45 PM EDT): [...] and excersise -patient will be refer to beverage server - Continue current medications, I can not [...] organization. Date Type Department Care Team Description 06/11/2025 Orders Only GENERIC EXTERNAL DATA DEPARTMENT Provider, Generic External Data 06/08/2025 2:00 PM EDT Telemedicine [facility] [address] [place] [phone] Kayley Alanis, RN Long-term current use of opiate analgesic 06/08/2025 Refill [facility] [address] [place] [address] Kayley Alanis, concrete smoother bilateral low back pain with bilateral sciatica 06/08/2025 Travel 06/05/2025 Telephone [facility] [address] [place] [address] Amanda Watkins MD Call Back Request 06/04/2025 Patient Outreach [facility] [address] [place] [address] Amanda Watkins MD 06/03/2025 Orders Only GENERIC EXTERNAL DATA DEPARTMENT Provider, Generic External Data 05/31/2025 Telephone [facility] [address] [place] [address] Kayley Alanis, PHILLIP Schedule Tele [employer] 05/30/2025 Orders Only GENERIC EXTERNAL DATA DEPARTMENT Provider, Generic External Data 05/29/2025 Orders Only GENERIC EXTERNAL DATA DEPARTMENT Provider, Generic External Data 05/29/[address] [address] Amanda Watkins MD Med Refill 05/28/2025 Refill [facility] [address] [place] [phone] Amanda Watkins MD Chronic bilateral low back pain with bilateral sciatica 05/25/2025 Refill [facility] [address] [place] [phone] Amanda Watkins MD Chronic bilateral low back pain with bilateral sciatica (Primary Dx) 05/24/2025 Refill [facility] [address] [place] [phone] Amanda Watkins MD 05/16/2025 Refill [facility] [address] [place] [phone] Amanda Watkins MD Type 2 diabetes mellitus with diabetic autonomic neuropathy, with long-term current use of insulin ([facility]); Slow transit constipation 05/08/2025 10:15 AM EDT Office Visit [facility] [address] [place] [phone] Amanda Watkins MD Fibromyalgia (Primary Dx); Degenerative arthritis of thumb, right; Chronic pain of both shoulders; Type 2 diabetes mellitus with hyperglycemia, with long-term current use of insulin ([facility]/HCC) 05/08/2025 Travel 05/07/2025 Telephone [facility] [address] [place] [address] Amanda Watkins MD 05/07/2025 Telephone [facility] [address] [place] [address] Amanda Watkins MD Chart Prep 05/07/2025 Refill [facility] [address] [place] [address] Amanda Watkins MD 05/04/2025 Telephone [facility] [address] [place] [address] Amanda Watkins MD Medication Question 04/30/2025 Telephone [facility] [address] [place] [phone] Amanda Watkins MD Appointment Request 04/23/2025 Patient Outreach [facility] [address] [place] [address] Amanda Watkins MD Pre-visit Planning (HDF scheduled. ) 04/23/2025 Refill [facility] [address] [place] [phone] Amanda Watkins MD 04/19/2025 Telephone [facility] [address] [place] [phone] Amanda Watkins MD 04/17/2025 Orders Only GENERIC EXTERNAL DATA DEPARTMENT Provider, Generic External Data 04/17/2025 Telephone [facility] [address] [place] [phone] Amanda Watkins MD Nurse Triage 04/16/2025 Travel 04/13/2025 Refill [facility] [address] [place] [address] Kayley Alanis RN Chronic bilateral low back pain with bilateral sciatica (Primary Dx) 04/11/2025 Refill [facility] [address] [place] [address] Amanda Watkins MD Type 2 diabetes mellitus with hyperglycemia ([facility]) 04/08/2025 Refill [facility] [address] [place] [address] Amanda Watkins MD 04/02/2025 Refill [facility] [address] [place] [address] Amanda Watkins MD Chronic bilateral low back pain with bilateral sciatica 03/29/2025 2:00 PM EDT Office Visit [facility] [address] [place] [address] Amanda Watkins MD Seborrheic dermatitis (Primary Dx); Type 2 diabetes mellitus with diabetic autonomic neuropathy, with long-term current use of insulin (CMS/HCC); Anemia, unspecified type; Chronic gastritis, presence of bleeding unspecified, unspecified gastritis type; Primary osteoarthritis, right shoulder; Slow transit constipation; Primary insomnia; Cellulitis of right lower extremity 03/29/2025 Travel 03/28/2025 Refill [facility] [address] [place] [address] Sia Leon, PharmD 03/27/2025 Telephone [facility] [address] [place] [address] Amanda Watkins MD Chart Prep 03/20/2025 Orders Only [facility] [address] [place] [address] Amanda Watkins MD Type 2 diabetes mellitus with diabetic autonomic neuropathy, with long-term current use of insulin (CMS/HCC) (Primary Dx) 03/20/2025 Telephone [facility] [address] [place] [address] Lynne Lazaro, [employer]MAT DRIVER Follow-up 03/20/2025 Telephone [facility] [address] [place] [address] Amanda Watkins MD Referral 03/20/2025 Telephone [facility] [address] [place] [address] Amanda Watkins MD Nurse Triage 03/16/2025 Refill [facility] [address] [place] [address] Amanda Watkins MD 03/14/2025 Telephone [facility] [address] [place], [place] [phone] Amanda Watkins MD FYI 03/11/2025 Orders Only [...] Description 06/11/2025 3:15 PM EST Office Visit [facility] [address] [place] [phone] Amanda Watkins MD [address] [place] [phone] 07/09/2025 3:30 PM EST Office Visit [facility] [address] [place] [phone] Amanda Watkins MD [address] [place] [phone] 09/21/2025 10:00 AM EST Telemedicine [facility] [address] [place] [address] Kayley Alanis, RN Health Maintenance Due Date Last Done Comments [...] 1-dose 75+ series) 2024 COVID-19 Vaccine ( season) 2025 07/24/2021, 12/11/2020, 10/03/2020 Influenza Vaccine [...] Procedure Name Priority Date/Time Associated Diagnosis Comments VENOUS BLOOD GAS Routine 06/11/2025 3:00 AM EST BETA-HYDROXYBUTYRATE Routine 06/11/2025 1:41 AM EST MAGNESIUM Routine 06/11/2025 1:41 AM EST COMPREHENSIVE METABOLIC PANEL Routine 06/11/2025 1:41 AM EST COMPLETE BLOOD COUNT MAN DIF Routine 06/11/2025 1:41 AM EST GLUCOSE, WHOLE BLOOD Routine 06/11/2025 1:29 AM EST GLUCOSE, WHOLE BLOOD Routine 06/11/2025 1:[address] HEAD WO CONTRAST Routine 06/03/2025 1 1:[address] CERVICAL SPINE WO CONTRAST Routine 06/03/2025 11:40 AM EDT XR SHOULDER 2+ VIEWS LEFT Routine 06/03/2025 11:39 AM EDT XR WRIST 3+ VIEWS LEFT Routine 11:35 AM EDT HIGH SENSITIVITY TROPONIN I Routine 06/03/2025 10:06 AM EDT BASIC METABOLIC PANEL Routine 06/03/2025 10:06 AM EDT HEPATIC FUNCTION PANEL Routine 10:06 AM EDT CBC WITH AUTO DIFFERENTIAL Routine 06/03/2025 10:06 AM EDT GLUCOSE, WHOLE BLOOD Routine 05/30/2025 7:39 AM [...] hyperglycemia, with long-term current use of insulin ([facility]) POCT GLUCOSE Routine 05/08/2025 10:52 AM EDT Type 2 diabetes mellitus with hyperglycemia, with long-term current use of insulin ([facility]) CT SHOULDER WO CONTRAST RIGHT Routine 04/17/2025 9:23 PM EDT LACTIC ACID Routine 04/17/2025 10:07 AM EDT POCT GLYCATED HEMOGLOBIN, TOTAL Routine 03/29/2025 2:06 PM EDT Type 2 diabetes mellitus with diabetic autonomic neuropathy, with long-term current use of insulin ([facility]) POCT GLUCOSE Routine 03/29/2025 2:04 PM EDT Type 2 diabetes mellitus with diabetic autonomic neuropathy, with long-term current use of insulin ([facility]) BASIC METABOLIC PANEL Routine 03/11/2025 8:31 AM EDT CBC WITH AUTO DIFFERENTIAL Routine 03/11/2025 8:31 AM EDT XR SHOULDER 2+ VIEWS RIGHT Routine 03/11/2025 8:21 AM EDT LIPID PANEL, STANDARD Routine 09/01/2024 2:09 PM EST ALBUMIN, RANDOM URINE W/CREATININE Routine 08/04/2021 10:15 AM EST from Last 3 Months or Most Recently Relevant to Health Maintenance Results * (ABNORMAL) VENOUS BLOOD GAS (06/11/2025 3:00 AM EST) Only the most recent of2 resultswithin the time period is included. VBG pH 7.38 7.32 - 7.43 [facility] Comment:METER #: [id number] additional_comment: Cb hilaryinc VBG PCO2 55 mmHg [facility] Comment:METER #: [id number] additional_comment: Cb hilaryinc VBG PO2 100 mmHg [facility] Comment:METER #: [id number] additional_comment: Cb ferrinc VBG Base Excess 6.6 mmol/L [facility] Comment:METER #: [id number] additional_comment: Cb ferrinc VBG HCO3 33(H) 22 - 26 mmol/L [facility] Comment:METER #: [id number] additional_comment: Huseyin richardinc O2 Sat, Samuel 99.0 % [facility] Comment:METER #: [id number] additional_comment: Huseyin white 06/11/2025 3:00 AM EST 06/11/2025 3:03 AM EST us Generic External Data Provider LAB BLOOD ORDERAB LES Final Result [facility] [address] [place], [place] [phone] * (ABNORMAL) Complete Blood Count Manual Diff (06/11/2025 1:41 AM EST) White Blood Count 5.6 4.8 - 10.8 X10*3/uL [facility] Red Blood Count 4.38 4.20 - 5.50 X10*6/uL [facility] Hemoglobin 11.7(L) 12.0 - 16.0 g/dl [facility] Hematocrit 36.2(L) 37.0 - 47.0 % [facility] Mean Corpuscular Volume 82.6 80.0 - 98.0 fL [facility] Mean Corpuscular Hemoglobin 26.7(L) 27.0 - 33.0 pg [facility] Mean Corpuscular HGB Conc 32.3 31.0 - 35.0 g/dl [facility] Red Cell Distribution Width 15.1 11.0 - 16.0 % [facility] Platelet Count 242 160 - 400 X10*3/uL [facility] Mean Platelet Volume 10.4 9.4 - 12.3 fL [facility] NRBC Pct Auto 0.0 0.0 - 0.2 /100WBC [facility] NRBC Abs Auto 0.000 0.0 - 0.012 X10*3/uL [facility] Neutrophils % Manual 71 45 - 73 % [facility] Band Neutrophils Percent 1(L) 3 - 5 % [facility] Lymphocytes Percent Manual 16(L) 20 - 40 % [facility] Atypical Lymphs Percent Manual 1 0 - 6 % [facility] Monocytes Percent Manual 8 2 - 11 % [facility] EOSINOPHILS % MANUAL 3 0 - 4 % [facility] NEUTROPHILS ABSOLUTE MANUAL 4.0 2.0 - 8.3 X10*3/uL [facility] LYMPHOCYTES ABSOLUTE MANUAL 0.9(L) 1.2 - 4.9 X10*3/uL [facility] Atypical Lymph Absolute Manual 0.1 x10*3/uL [facility] MONOCYTES ABSOLUTE MANUAL 0.4 0.1 - 1.2 X10*3/uL [facility] EOSINOPHILS ABSOLUTE MANUAL 0.2 0.0 - 0.4 X10*3/uL [facility] Platelet Estimate NORMAL NORMAL [facility] Platelet Morphology Comment NORMAL [facility] RBC Morphology NOTED [facility] Hypochromasia 1+ (5-14) /OIF [facility] Microcytosis 1+ (5-14) /OIF [facility] 06/11/2025 1:41 AM EST 06/11/2025 1:44 AM EST Generic External Data Provider LAB BLOOD ORDERAB LES Final Result Performing Organization Address [facility] Co de Phone Number [facility] [address] [place] [phone] * Beta-Hydroxybutyrate (06/11/2025 1:41 AM EST) Beta-Hydroxybut yrate 0.13 0.02 - 0.27 mmol/L [facility] 06/11/2025 1:41 AM EST 06/11/2025 1:44 AM EST us Generic External Data Provider LAB BLOOD ORDERAB LES Final Result Performing Organization Address City/[facility] Co de Phone Number [facility] [address] [place] [phone] * Magnesium (06/11/2025 1:41 AM EST) Magnesium 2.4 1.6 - 2.6 mg/dL [facility] 06/11/2025 1:41 AM EST 06/11/2025 1:44 AM EST us Generic External Data Provider LAB BLOOD ORDERAB LES Final Result [facility] [address] [place], [place] [phone] * (ABNORMAL) Comprehensive Metabolic Panel (06/11/2025 1:41 AM EST) Sodium 131(L) 135 - 145 mmol/L [facility] Potassium 4.7 3.3 - 5.1 mmol/L [facility] Chloride 93(L) 96 - 108 mmol/L [facility] Carbon Dioxide 30(H) 22 - 29 mmol/L [facility] Anion Gap 13 12 - 20 [facility] Urea Nitrogen (BUN) 26(H) 9 - 16 mg/dL [facility] Creatinine, Serum 1.36 0.5 - 1.4 mg/dL [facility] Comment:Creatinine results a t the upper end of the reference rangemay show a slight artifactual increase if the glucose resultis >600 mg/dL. Recommend rechecking the creatinine when theglucose is <600 mg/dL. Creatinine Clr Calc Pharmacy 39.5 [facility] Comment:Provided height and weight: 165.1 cm,90 kg.eGFR (calculated from the MDRD study equation) and eCrCl(calculated from the Cockcroft-Gault equation) are based ondifferent parameters and may not yield comparable results.If eCrCl result is absurd, please check patient'sheight/weight. Estimated Glomerular Filt Rate 38 [facility] Comment:Chronic Kidney Disea se: Estimated GFR < 60 mL/min/1.27v2Lsymfk Kidney Disease: Estimated GFR < 15 mL/min/1.73m2 Glucose 666(HH) 60 - 115 mg/dL [facility] Comment:Critical value for t est(s): GLU Results called to and readback by: WOO Person calling: EMILY Date: 06/11/25 Time:02:04 Calcium 8.4 8.4 - 10.2 mg/dL [facility] Bilirubin, Total 0.2 0.0 - 1.0 mg/dL [facility] Aspartate Amino Transferase 15 5 - 31 U/L [facility] Alanine Aminotransferase 7 0 - 31 U/L [facility] Total Protein 6.7 6.5 - 8.0 g/dL [facility] Albumin Level 3.5 3.5 - 5.0 g/dL [facility] Alkaline Phosphatase 78 39 - 117 U/L [facility] 06/11/2025 1:41 AM EST 06/11/2025 1:44 AM EST Generic External Data Provider LAB BLOOD ORDERAB LES Final Result Performing Organization Address [facility] Co de Phone Number [facility] [address] [place] [address] [phone] * (ABNORMAL) Glucose, Whole Blood (06/11/2025 1:29 AM EST) Only the most recent of5 resultswithin the time period is included. Glucose, Whole Blood >600() 60 - 115 mg/dL [facility] Comment:METER #: [id number] 06/11/2025 1:29 AM EST 06/11/2025 1:32 AM EST Generic External Data Provider LAB BLOOD ORDERAB LES Final Result Performing Organization Address [facility] Co de Phone Number [facility] [address] [place] [phone] * CT Head w/o Contrast (06/03/2025 11:57 AM EDT) Anatomical Region Laterality Modality Head, Neck Computed Tomogra phy 06/03/2025 11:5 7 AM EDT Narrative 06/03/2025 11:59 AM EDT [address] [address] [address] Scan Report Signed Patient: Mary Lou Godwin MR#: M [id number] : 1950 Acct:[id number] Age/Sex: 74 / F ADM Date: 06/03/25 Loc: HO.ED Attending Dr: Ordering Physician: Kristi Delvalle Date of Service: 06/03/25 Procedure(s): CT head/brain wo IV con Accession Number(s): [id number] cc: Amanda Watkins MD; Kristi Delvalle Report Number: [id number]: Total DLP = 0.00 mGy-cm Reason for Exam: fall CLINICAL HISTORY: fall CT head without contrast Comparison: CT/SR - CT HEAD WITHOUT IV CONTRAST - 06/22/24 18:04 EST Findings: No intra-axial mass, midline shift, hydrocephalus, or acute hemorrhage. There is mild cortical atrophy. There is no sinus or mastoid fluid. The orbits are within normal limits. There is no acute fracture. IMPRESSION: 1. No acute intracranial findings. This document has been electronically signed by: Domenic De La Cruz MD on 06/03/2025 11:57:35 Dictated By: Domenic De La Cruz MD Signed By: <Electronically signed by Domenic De La Cruz MD in OV> 06/03/25 1159 DD/ 1157 TD/TT: 06/03/25 1157 Trenching Machine Operator: Procedure Note Donotuseinterpreter, Image - 06/03/[address] [place] [address] [address] Scan Report Signed Patient: Mary Lou Godwin ZMR#: M [id number] : 9Acct:[id number] Age/Sex: 74 / FADM Date: 06/03/25 Loc: HO.ED Attending Dr: Ordering Physician: Kristi Delvalle Date of Service: 06/03/25 Procedure(s): CT head/brain wo IV con Accession Number(s): [id number] cc: Amanda Watkins MD; Kristi Delvalle Report Number: [id number]: Total DLP = 0.00 mGy-cm Reason for Exam: fall CLINICAL HISTORY: fall CT head without contrast Comparison: CT/SR - CT HEAD WITHOUT IV CONTRAST - 06/22/24 18:04 EST Findings: No intra-axial mass, midline shift, hydrocephalus, or acute hemorrhage. There is mild cortical atrophy. There is no sinus or mastoid fluid. The orbits are within normal limits. There is no acute fracture. IMPRESSION: 1. No acute intracranial findings. This document has been electronically signed by: Domenic De La Cruz MD on 06/03/2025 11:57:35 Dictated By: Domenic De La Cruz MD Signed By: <Electronically signed by Domenic De La Cruz MD in OV> 06/03/25 1159 DD/ 1157 TD/TT: 06/03/25 1157 Trenching Machine Operator: [facility] External Provider IMG CT PROCEDURES Final Result * CT Cervical Spine w/o Contrast (06/03/2025 11:40 AM EDT) Anatomical Region Laterality Modality Spine, C-spine Computed Tomogra phy 06/03/2025 11:4 0 AM EDT Narrative 06/03/2025 11:42 AM EDT [place] [address] CT Scan Report Signed Patient: Mary Lou Godwin MR#: M [id number] : 1950 Acct:[id number] Age/Sex: 74 / F ADM Date: 06/03/25 Loc: HO.ED Attending Dr: Ordering Physician: Kristi Delvalle Date of Service: 06/03/25 Procedure(s): CT cervical spine wo IV con Accession Number(s): [id number] cc: Amanda Watkins MD; Kristi Delvalle Report Number: [id number]: Total DLP = 1443.00 mGy-cm Reason for Exam: fall CLINICAL HISTORY: fall CT cervical spine without contrast Comparison: None provided Findings: Vertebral alignment is within normal limits. There is severe chronic degenerative disc disease at the C4-5 and C5-6 levels. No acute fractures or dislocations. Visualized intracranial contents are unremarkable. Soft tissues of the neck are normal. Lung apices are clear. IMPRESSION: No acute findings. This document has been electronically signed by: Domenic De La Cruz MD on 06/03/2025 11:40:50 Dictated By: Domenic De La Cruz MD Signed By: <Electronically signed by Domenic De La Cruz MD in OV> 06/03/25 1141 DD/ 1140 TD/TT: 06/03/25 1140 Trenching Machine Operator: Procedure Note Donotuseinterpreter, Image - 06/03/[address] [place] [address] [address] Scan Report Signed Patient: Mary Lou Godwin ZMR#: M [id number] : 9Acct:[id number] Age/Sex: 74 / FADM Date: 06/03/25 Loc: HO.ED Attending Dr: Ordering Physician: Kristi Delvalle Date of Service: 06/03/25 Procedure(s): CT cervical spine wo IV con Accession Number(s): [id number] cc: Amanda Watkins MD; Kristi Delvalle Report Number: [id number]: Total DLP = 1443.00 mGy-cm Reason for Exam: fall CLINICAL HISTORY: fall CT cervical spine without contrast Comparison: None provided Findings: Vertebral alignment is within normal limits. There is severe chronic degenerative disc disease at the C4-5 and C5-6 levels. No acute fractures or dislocations. Visualized intracranial contents are unremarkable. Soft tissues of the neck are normal. Lung apices are clear. IMPRESSION: No acute findings. This document has been electronically signed by: Domenic De La Cruz MD on 06/03/2025 11:40:50 Dictated By: Domenic De La Cruz MD Signed By: <Electronically signed by Domenic De La Cruz MD in OV> 06/03/25 1141 DD/ 1140 TD/TT: 06/03/25 1140 Trenching Machine Operator: us [facility] External Provider IMG CT PROCEDURES Final Result * XR Shoulder 2+ Views Left (06/03/2025 11:39 AM EDT) Anatomical Region Laterality Modality Upper Extremities, Shoulder Left Radi ographic Imaging 06/03/2025 11:3 9 AM EDT Narrative 06/03/2025 11:41 AM EDT [address] [address] XRay Report Signed Patient: Mary Lou Godwin Z MR#: M [id number] : 1950 Acct:[id number] Age/Sex: 74 / F ADM Date: 06/03/25 Loc: HO.ED Attending Dr: Ordering Physician: Kristi Delvalle Date of Service: 06/03/25 Procedure(s): XR shoulder LT min 2V Accession Number(s): [id number] cc: Amanda Watkins MD; Kristi Delvalle Reason for Exam: pain s/p fall CLINICAL HISTORY: pain s p fall 3 view left shoulder Comparison: None provided Findings: Bones intact. No dislocations. There are degenerative changes with glenohumeral joint space narrowing. No erosions. No radiopaque foreign body. IMPRESSION: 1. No acute findings This document has been electronically signed by: Domenic De La Cruz MD on 06/03/2025 11:39:52 Dictated By: Domenic De La Cruz MD Signed By: <Electronically signed by Domenic De La Cruz MD in OV> 06/03/25 1140 DD/ 1139 TD/TT: 06/03/25 1139 Trenching Machine Operator: Procedure Note Donotuseinterpreter, Image - 06/03/[address] [address] XRay Report Signed Patient: Mary Lou Godwin ZMR#: M [id number] : 1950cct:[id number] Age/Sex: 74 / FADM Date: 06/03/25 Loc: HO.ED Attending Dr: Ordering Physician: Kristi Delvalle Date of Service: 06/03/25 Procedure(s): XR shoulder LT min 2V Accession Number(s): [id number] cc: Amanda Watkins MD; Kristi Delvalle Reason for Exam: pain s/p fall CLINICAL HISTORY: pain s p fall 3 view left shoulder Comparison: None provided Findings: Bones intact. No dislocations. There are degenerative changes with glenohumeral joint space narrowing. No erosions. No radiopaque foreign body. IMPRESSION: 1. No acute findings This document has been electronically signed by: Domenic De La Cruz MD on 06/03/2025 11:39:52 Dictated By: Domenic De La Cruz MD Signed By: <Electronically signed by Domenic De La Cruz MD in OV> 06/03/25 1140 DD/ 1139 TD/TT: 06/03/251138 Trenching Machine Operator: [facility] External Provider IMG XR PROCEDURES Final Result * XR Wrist 3+ Views Left (06/03/2025 11:35 AM EDT) Anatomical Region Laterality Modality Upper Extremities, Wrist Left Radiogr aphic Imaging 06/03/2025 11:3 5 AM EDT Narrative 06/03/2025 11:37 AM EDT [place] [address] XRay Report Signed Patient: Mary Lou Godwin MR#: M [id number] : 1950 Acct:[id number] Age/Sex: 74 / F ADM Date: 06/03/25 Loc: .ED Attending Dr: Ordering Physician: Kristi Delvalle Date of Service: 06/03/25 Procedure(s): XR wrist LT min 3V Accession Number(s): [id number] cc: Amanda Watkins MD; Kristi Delvlale Reason for Exam: pain s/p fall CLINICAL HISTORY: pain s p fall 4 view left wrist Comparison: None provided Findings: Bones intact. No dislocations. No significant loss of joint space, osteophyte, or erosions. No radiopaque foreign body. Vascular calcifications are noted. IMPRESSION: 1. No acute findings This document has been electronically signed by: Domenic De La Cruz MD on 06/03/2025 11:35:53 Dictated By: Domenic De La Cruz MD Signed By: <Electronically signed by Domenic De La Cruz MD in OV> 06/03/25 1136 DD/ 1135 TD/TT: 06/03/251134 Trenching Machine Operator: Procedure Note Donotuseinterpreter, Image - 06/03/[address] [address] XRay Report Signed Patient: Mary Lou Godwin ZMR#: M [id number] : 9Acct:[id number] Age/Sex: 74 / FADM Date: 06/03/25 Loc: HO.ED Attending Dr: Ordering Physician: Kristi Delvalle Date of Service: 06/03/25 Procedure(s): XR wrist LT min 3V Accession Number(s): [id number] cc: Amanda Watkins MD; Kristi Delvalle Reason for Exam: pain s/p fall CLINICAL HISTORY: pain s p fall 4 view left wrist Comparison: None provided Findings: Bones intact. No dislocations. No significant loss of joint space, osteophyte, or erosions. No radiopaque foreign body. Vascular calcifications are noted. IMPRESSION: 1. No acute findings This document has been electronically signed by: Domenic De La Cruz MD on 06/03/2025 11:35:53 Dictated By: Domenic De La rCuz MD Signed By: <Electronically signed by Domenic De La Cruz MD in OV> 06/03/256 DD/ 113 TD/TT: 06/03/251134 Trenching Machine Operator: [facility] External Provider IMG XR PROCEDURES Final Result * High Sensitivity Troponin I (06/03/2025 10:06 AM EDT) TROPONIN I HIGH SENSITIVITY 9.0 <3.5 - 17.0 ng/L [facility] Comment:The [place] high sens itivity Troponin-I results should beused in conjunction with other diagnostic information suchas ECG, clinical observations and information, and patientsymptoms to aid in the diagnosis of VA. 06/03/2025 10:0 6 AM EDT 06/03/2025 10:10 AM EDT Generic External Data Provider LAB BLOOD ORDERAB LES Final Result [facility] [address] [place], [place] [phone] * (ABNORMAL) CBC auto differential (06/03/2025 10:06 AM EDT) Only the most recent of2 resultswithin the time period is included. White Blood Count 4.8 4.8 - 10.8 X10*3/uL [facility] Red Blood Count 4.02(L) 4.20 - 5.50 X10*6/uL [facility] Hemoglobin 10.9(L) 12.0 - 16.0 g/dl [facility] Hematocrit 33.8(L) 37.0 - 47.0 % [facility] Mean Corpuscular Volume 84.1 80.0 - 98.0 fL [facility] Mean Corpuscular Hemoglobin 27.1 27.0 - 33.0 pg [facility] Mean Corpuscular HGB Conc 32.2 31.0 - 35.0 g/dl [facility] Red Cell Distribution Width 16.3(H) 11.0 - 16.0 % [facility] Platelet Count 183 160 - 400 X10*3/uL [facility] Mean Platelet Volume 10.9 9.4 - 12.3 fL [facility] Neutrophils Percent Auto 66.8 45 - 73 % [facility] Imm Gran Pct Auto 0.2 0.0 - 0.4 % [facility] Lymphocytes Percent Auto 21.7 20 - 40 % [facility] Monocytes Percent Auto 6.9 2 - 11 % [facility] Eosinophils Percent Auto 3.8 0 - 4 % [facility] Basophils Percent Auto 0.6 0 - 2 % [facility] NRBC Pct Auto 0.0 0.0 - 0.2 /100WBC [facility] Neutrophils Absolute Auto 3.2 2.0 - 8.3 x10*3/uL [facility] Imm Gran Abs Auto 0.01 0.00 - 0.03 X10*3/uL [facility] Lymphocytes Absolute Auto 1.0(L) 1.2 - 4.9 X10*3/uL [facility] Monocytes Absolute Auto 0.3 0.1 - 1.2 X10*3/uL [facility] Eosinophils Absolute Auto 0.2 0.0 - 0.4 X10*3/uL [facility] Basophils Absolute Auto 0.0 0.0 - 0.2 X10*3/uL [facility] NRBC Abs Auto 0.000 0.0 - 0.012 X10*3/uL [facility] 06/03/2025 10:0 6 AM EDT 06/03/2025 10:10 AM EDT us Generic External Data Provider LAB BLOOD ORDERAB LES Final Result Performing Organization Address [facility]/ZIP Co de Phone Number [facility] [address] [place] [phone] * (ABNORMAL) Hepatic Function Panel (06/03/2025 10:06 AM EDT) Bilirubin, Total 0.2 0.0 - 1.0 mg/dL [facility] Bilirubin, Direct <0.2 0.0 - 0.5 mg/dL [facility] Aspartate Amino Transferase 20 5 - 31 U/L [facility] Alanine Aminotransferase 18 0 - 31 U/L [facility] Total Protein 6.1(L) 6.5 - 8.0 g/dL [facility] Albumin Level 3.0(L) 3.5 - 5.0 g/dL [facility] Alkaline Phosphatase 70 39 - 117 U/L [facility] 06/03/2025 10:0 6 AM EDT 06/03/2025 10:10 AM EDT Generic External Data Provider LAB BLOOD ORDERAB LES Final Result Performing Organization Address [facility]/ZIP Co de Phone Number [facility] [address] [place] [phone] * (ABNORMAL) Basic Metabolic Panel (06/03/2025 10:06 AM EDT) Only the most recent of2 resultswithin the time period is included. Sodium 140 135 - 145 mmol/L [facility] Potassium 4.4 3.3 - 5.1 mmol/L [facility] Chloride 101 96 - 108 mmol/L [facility] Carbon Dioxide 33(H) 22 - 29 mmol/L [facility] Anion Gap 10(L) 12 - 20 [facility] Urea Nitrogen (BUN) 33(H) 9 - 16 mg/dL [facility] Creatinine, Serum 1.44(H) 0.5 - 1.4 mg/dL [facility] Creatinine Clr Calc Pharmacy 40.1 [facility] Comment:Provided height and weight: 160.02 cm,109.7 kg.eGFR (calculated from the MDRD study equation) and eCrCl(calculated from the Cockcroft-Gault equation) are based ondifferent parameters and may not yield comparable results.If eCrCl result is absurd, please check patient'sheight/weight. Estimated Glomerular Filt Rate 35 [facility] Comment:Chronic Kidney Disea se: Estimated GFR < 60 mL/min/1.69t7Qhvexc Kidney Disease: Estimated GFR < 15 mL/min/1.73m2 Glucose 342(H) 60 - 115 mg/dL [facility] Calcium 8.1(L) 8.4 - 10.2 mg/dL [facility] 06/03/2025 10:0 6 AM EDT 06/03/2025 10:10 AM EDT us Generic External Data Provider LAB BLOOD ORDERAB LES Final Result [facility] [address] [place] [phone] * (ABNORMAL) Urinalysis, Complete, with Reflex to Culture (05/30/2025 5:57 AM EDT) Color Urine Yellow [facility] Appearance Urine Clear [facility] PH 8.0 5.0 - 9.0 [facility] Glucose Urine UA >=1000(A) Negative mg/dL [facility] Urine Blood Negative Negative [facility] Specific [place] - Urine 1.015 1.005 - 1.025 [facility] Urine Protein Negative Neg-Trace mg/dL [facility] Urine Ketones Negative Negative mg/dL [facility] Nitrite Urine Negative Negative [facility] Leukocyte Esterase Urine Negative Negative [facility] RBC Urine 0-2 0 - 2 /HPF [facility] Urine WBC 0-5 0 - 5 /HPF [facility] Urine Squamous Epithelial Cell 0-2 0 - 2 /HPF [facility] Urine Bacteria None Seen None Seen [facility] Hyaline Casts, Urine 0-2 0 - 2 /LPF [facility] 05/30/2025 5:57 AM EDT 05/30/2025 6:04 AM EDT Narrative [facility] - 05/30/2025 6:36 AM EDT [id number], Clean Catch us Generic External Data Provider LAB URINE ORDERAB LES Final Result [facility] [address] [place] [phone] * (ABNORMAL) Drug Monitoring, Panel 1, Screen, Urine (05/30/2025 5:56 AM EDT) Opiate Screen Urine Not Detected Not Detect [facility] Comment:Opiate cut-off is 30 0 ng/mL.Positive results are unconfirmed and should not be used fornon-medical purposes. Barbiturates, Urine Not Detected Not Detect [facility] Comment:Barbiturate cut-off is 200 ng/mL.Positive results are unconfirmed and should not be used fornon-medical purposes. Phencyclidine Screen Urine Not Detected Not Detect [facility] Comment:Phencyclidine cut-of f is 25 ng/mL.Positive results are unconfirmed and should not be used fornon-medical purposes. Amphetamine Screen Urine Not Detected Not Detect [facility] Comment:Amphetamine cut-off is 1000 ng/mL.Positive results are unconfirmed and should not be used fornon-medical purposes. Benzodiazepines Screen Urine Not Detected Not Detect [facility] Comment:Benzodiazepine cut-o ff is 200 ng/mL.Positive results are unconfirmed and should not be used fornon-medical purposes. Cocaine Screen Urine Not Detected Not Detect [facility] Comment:Cocaine cut-off is 3 00 ng/mL.Positive results are unconfirmed and should not be used fornon-medical purposes. Cannabinoid Screen Urine Not Detected Not Detect [facility] Comment:Cannabinoid cut-off is 50 ng/mL.Positive results are unconfirmed and should not be used fornon-medical purposes. Methadone Screen, Urine Not Detected Not Detect ng/mL [facility] Comment:Methadone cut-off is 300 ng/mL.Positive results are unconfirmed and should not be used fornon-medical purposes. FENTANYL URINE Not Detected Not Detect [facility] Comment:Fentanyl cut-off is 1 ng/mL.Positive results are unconfirmed and should not be used fornon-medical purposes. Oxycodone Urine Screen Positive(A) Not Detect ng/mL [facility] Comment:Oxycodone cut-off is 100 ng/mL.Positive results are unconfirmed and should not be used fornon-medical purposes. Buprenorphine Screen Not Detected Not Detect ng/mL [facility] Comment:Buprenorphine cut-of f is 5 ng/mL.Positive results are unconfirmed and should not be used fornon-medical purposes. 05/30/2025 5:56 AM EDT 05/30/2025 6:04 AM EDT us Generic External Data Provider LAB URINE ORDERAB LES Final Result [facility] [address] [place] [phone] * Acetaminophen level (05/30/2025 12:14 AM EDT) Acetaminophen LAB <3 <30 mcg/mL [facility] 05/30/2025 12:1 4 AM EDT 05/30/2025 12:18 AM EDT Generic External Data Provider LAB BLOOD ORDERAB LES Final Result Performing Organization Address [facility]/ZIP Co de Phone Number [facility] [address] [place] [phone] * (ABNORMAL) Salicylate (05/30/2025 12:14 AM EDT) Pathologist [facility] Salicylate <5.0(L) 15 - 30 mg/dL [facility] 05/30/2025 12:1 4 AM EDT 05/30/2025 12:18 AM EDT Generic External Data Provider LAB BLOOD ORDERAB LES Final Result Performing Organization Address [facility] de Phone Number [facility] [address] [place] [phone] * (ABNORMAL) POCT Hgb A1c (05/08/2025 10:52 AM EDT) Only the most recent of2 resultswithin the time period is included. Pathologist [facility] Hemoglobin A1C 9.8(A) 4.0 - 5.7 % [...] Media Lot # [id number] Lot# Expiration Date 72 Blood Capillary blood specimen / Unknown 05/08/2025 10:52 AM EDT us Amanda Myers MD POINT OF CARE TEST EN TER/EDIT ORDERABLES Final Result * CT Shoulder w/o Contrast Right (04/17/2025 9:23 PM EDT) Anatomical Region Laterality Modality Upper Extremities, Shoulder Right Comp uted Tomography 04/17/2025 9:23 PM EDT Narrative 04/17/2025 9:25 PM EDT
--- OUTSIDE RECORDS SUMMARY | 2025-06-11 04:09 | XMS_ITS | Encounter Summary ---
Author Organization [employer] Address [address] [facility] 7t [place] [address] Care Team Providers Care Online Communications Specialist Name Role Phone Amanda Watkins MD Primary Care Provide r Hiro Ram FRANCHISE BROKER Unavailable Unavailable Raad Arias PharmD Unavailable [phone] Encounter Details Date Type Department Care Team (Late st Contact Info) Description 06/11/2025 Orders Only GENERIC EXTERNAL DATA [...] Description 06/11/2025 3:15 PM EST Office Visit [address] [address] Amanda Watkins MD [address] [place] [address] 07/09/2025 3:30 PM EST Office Visit [address] [address] Amanda Watkins MD [address] [place] [address] 09/21/2025 10:00 AM EST Telemedicine [address] [address] Kayley Alanis RN documented as of this encounter Procedures Procedure Name Priority Date/Time Associated Diagnosis Comments VENOUS BLOOD GAS Routine 06/11/2025 3:00 AM EST COMPLETE BLOOD COUNT MAN DIF Routine 06/11/2025 1:41 AM EST BETA-HYDROXYBUTYRATE Routine 06/11/2025 1:41 AM EST MAGNESIUM Routine 06/11/2025 1:41 AM EST COMPREHENSIVE METABOLIC PANEL Routine 06/11/2025 1:41 AM EST GLUCOSE, WHOLE BLOOD Routine 06/11/2025 1:29 AM EST GLUCOSE, WHOLE BLOOD Routine 06/11/2025 1:23 AM EST documented in this encounter Results * (ABNORMAL) VENOUS BLOOD GAS (06/11/2025 3:00 AM EST) VBG pH 7.38 7.32 - 7.43 [facility] Comment:METER #: [id number] additional_comment: Cb ferrinc VBG PCO2 55 mmHg [facility] Comment:METER #: [id number] additional_comment: Cb ferrinc VBG PO2 100 mmHg [facility] Comment:METER #: [id number] additional_comment: Cb ferrinc VBG Base Excess 6.6 mmol/L [facility] Comment:METER #: [id number] additional_comment: Cb ferrinc VBG HCO3 33(H) 22 - 26 mmol/L [facility] Comment:METER #: [id number] additional_comment: Cb ferrinc O2 Sat, Samuel 99.0 % [facility] Comment:METER #: [id number] additional_comment: Cb ferrinc 06/11/2025 3:00 AM EST 06/11/2025 3:03 AM EST us Generic External Data Provider LAB BLOOD ORDERAB LES Final Result [facility] [address] [place] [phone] * Beta-Hydroxybutyrate (06/11/2025 1:41 AM EST) Pathologist [facility] Beta-Hydroxybut yrate 0.13 0.02 - 0.27 mmol/L [facility] 06/11/2025 1:41 AM EST 06/11/2025 1:44 AM EST us Generic External Data Provider LAB BLOOD ORDERAB LES Final Result Performing Organization Address City/[facility]/ZIP Co de Phone Number [facility] [address] [place] [phone] * Magnesium (06/11/2025 1:41 AM EST) Pathologist [facility] Magnesium 2.4 1.6 - 2.6 mg/dL [facility] 06/11/2025 1:41 AM EST 06/11/2025 1:44 AM EST Generic External Data Provider LAB BLOOD ORDERAB LES Final Result Performing Organization Address [facility] Co de Phone Number [facility] [address] [place] [phone] * (ABNORMAL) Comprehensive Metabolic Panel (06/11/2025 1:41 AM EST) Pathologist [facility] Sodium 131(L) 135 - 145 mmol/L [facility] Potassium 4.7 3.3 - 5.1 mmol/L [facility] Chloride 93(L) 96 - 108 mmol/L [facility] Carbon Dioxide 30(H) 22 - 29 mmol/L [facility] Anion Gap 13 12 - 20 [facility] Urea Nitrogen (BUN) 26(H) 9 - 16 mg/dL [facility] Creatinine, Serum 1.36 0.5 - 1.4 mg/dL [facility] Comment:Creatinine results a t the upper end of the reference rangemay show a slight artifactual increase if the glucose resultis >600 mg/dL. Recommend rechecking the creatinine when theglucose is <600 mg/dL. Creatinine Clr Calc Pharmacy 39.5 [facility] Comment:Provided height and weight: 165.1 cm,90 kg.eGFR (calculated from the MDRD study equation) and eCrCl(calculated from the Cockcroft-Gault equation) are based ondifferent parameters and may not yield comparable results.If eCrCl result is absurd, please check patient'sheight/weight. Estimated Glomerular Filt Rate 38 [facility] Comment:Chronic Kidney Disea se: Estimated GFR < 60 mL/min/[id number] Kidney Disease: Estimated GFR < 15 mL/min/1.73m2 Glucose 666(HH) 60 - 115 mg/dL [facility] Comment:Critical value for t est(s): GLU Results called to and readback by: WOO Person calling: IDRISH Date: 06/11/25 Time:02:04 Calcium 8.4 8.4 - 10.2 mg/dL [facility] Bilirubin, Total 0.2 0.0 - 1.0 mg/dL [facility] Aspartate Amino Transferase 15 5 - 31 U/L [facility] Alanine Aminotransferase 7 0 - 31 U/L [facility] Total Protein 6.7 6.5 - 8.0 g/dL [facility] Albumin Level 3.5 3.5 - 5.0 g/dL [facility] Alkaline Phosphatase 78 39 - 117 U/L [facility] 06/11/2025 1:41 AM EST 06/11/2025 1:44 AM EST us Generic External Data Provider LAB BLOOD ORDERAB LES Final Result [facility] [address] [place] [phone] * (ABNORMAL) Complete Blood Count Manual Diff (06/11/2025 1:41 AM EST) White Blood Count 5.6 4.8 - 10.8 X10*3/uL [facility] Red Blood Count 4.38 4.20 - 5.50 X10*6/uL [facility] Hemoglobin 11.7(L) 12.0 - 16.0 g/dl [facility] Hematocrit 36.2(L) 37.0 - 47.0 % [facility] Mean Corpuscular Volume 82.6 80.0 - 98.0 fL [facility] Mean Corpuscular Hemoglobin 26.7(L) 27.0 - 33.0 pg [facility] Mean Corpuscular HGB Conc 32.3 31.0 - 35.0 g/dl [facility] Red Cell Distribution Width 15.1 11.0 - 16.0 % [facility] Platelet Count 242 160 - 400 X10*3/uL [facility] Mean Platelet Volume 10.4 9.4 - 12.3 fL [facility] NRBC Pct Auto 0.0 0.0 - 0.2 /100WBC [facility] NRBC Abs Auto 0.000 0.0 - 0.012 X10*3/uL [facility] Neutrophils % Manual 71 45 - 73 % [facility] Band Neutrophils Percent 1(L) 3 - 5 % [facility] Lymphocytes Percent Manual 16(L) 20 - 40 % [facility] Atypical Lymphs Percent Manual 1 0 - 6 % [facility] Monocytes Percent Manual 8 2 - 11 % [facility] EOSINOPHILS % MANUAL 3 0 - 4 % [facility] NEUTROPHILS ABSOLUTE MANUAL 4.0 2.0 - 8.3 X10*3/uL [facility] LYMPHOCYTES ABSOLUTE MANUAL 0.9(L) 1.2 - 4.9 X10*3/uL [facility] Atypical Lymph Absolute Manual 0.1 x10*3/uL [facility] MONOCYTES ABSOLUTE MANUAL 0.4 0.1 - 1.2 X10*3/uL [facility] EOSINOPHILS ABSOLUTE MANUAL 0.2 0.0 - 0.4 X10*3/uL [facility] Platelet Estimate NORMAL NORMAL [facility] Platelet Morphology Comment NORMAL [facility] RBC Morphology NOTED [facility] Hypochromasia 1+ (5-14) /OIF [facility] Microcytosis 1+ (5-14) /OIF [facility] 06/11/2025 1:41 AM EST 06/11/2025 1:44 AM EST us Generic External Data Provider LAB BLOOD ORDERAB LES Final Result [facility] [address] [place] [phone] * (ABNORMAL) Glucose, Whole Blood (06/11/2025 1:29 AM EST) Glucose, Whole Blood >600(HH) 60 - 115 mg/dL [facility] Comment:METER #: [id number] 06/11/2025 1:29 AM EST 06/11/2025 1:32 AM EST us Generic External Data Provider LAB BLOOD ORDERAB LES Final Result [facility] [address] [place] [phone] * (ABNORMAL) Glucose, Whole Blood (06/11/2025 1:23 AM EST) Glucose, Whole Blood >600(HH) 60 - 115 mg/dL [facility] Comment:METER #: [id number] 06/11/2025 1:23 AM EST 06/11/2025 1:29 AM EST Generic External Data Provider LAB BLOOD ORDERAB LES Final Result Performing Organization Address City/[facility]/ZIP Co de Phone Number [facility] [address] [place] [phone] documented in this encounter Visit Diagnoses Not on filedocumented in this encounter Additional Health Concerns Assessment Noted Time PHQ-9 Depression Total Score: 14 025 2:41 PM EDT documented as of this encounter Care Teams Online Communications Specialist Relationship Specialty Start Date End Date Amanda Watkins MD [address] [place] [address] PCP - General Family Medicine 04/07/19 Hiro Ram FNP [address] [place] [address] Nurse Practitioner Family Medicine 07/06/23 Raad Arias, PharmD [address] [place] [address] Pharmacist Internal Medicine 10/19/24 [facility] 03/08/25 documented as of this encounter
--- OUTSIDE RECORDS SUMMARY | 2025-06-11 04:10 | XMS_ITS | Encounter Summary ---
Author Organization [employer] Address 75 [facility] 7t [place] [address] Care Team Providers Care Optical Model Maker And Tester Name Role Phone Amanda Watkins MD Primary Care Provide r Hiro Ram BEAD WORKER SEWING Unavailable Unavailable Raad Arias PharmD Unavailable [phone] Reason for Visit * Reason Onset Date Comments Call Back Request 06/05/2025 Encounter Details Date Type Department Care Team ([facility] Contact Info) Description 06/05/2025 Telephone [facility] [address] [place] [address] Amanda Watkins MD [address] [place] [address] Call Back Request Social History Tobacco Use [...] encounter Miscellaneous Notes * Telephone Encounter - Leann Cm RN - 06/08/2025 11:12 AM EDT TC returned to [facility]. Sees pt. Twice weekly. Noted on Wednesday pt.'s L calf was swollen and red. Due to see pt. Again today. Also states pt. Blood glucose is always >300 after meals. Reports she does not see pt. While fasting and family is noncompliant with checking sugars aside from when she is not there. Reports daughter is in charge of administering her weekly mounjaro and daily insulin as [facility] does not visit at thesasd time of day or week and is compliant with these meds as far as she is aware. Informed [facility] I would reach out to pt. TC placed to pt. Pt. Confirms painless redness and swelling from ankle to knee in L leg only, denies worsening or spreading since it was first noticed Wednesday. Denies abnormal warmth to area. Pt. Confirms she takes eliquis from [facility]. Pt. Denies h/o blot clot. Pt. Reports her daughter will not be able to bring her to an appointment any time today. Pt. Agrees to appointment Wednesday with PCP but str ict ED precautions reviewed with fever, pain, sob, cough, chest discomfort or spreading swelling orredness to leg. Pt verbalizes understanding. Otherwise pt. In ED 06/03 s/p fall onto L arm on 06/02. CT head/ C spine and xrays of L shoulder and wrist WNL. Prescribed percocet prn q. 8 hours (6 tabs). Pt. Reports pain in arm is improved while taking medication. * Telephone Encounter - Sky Sánchez - 06/05/2025 4:39 PM EDT Tc from [facility] with [facility] requesting a call back regarding pt care. She would like to discuss edema, weight gain and high blood sugars. [facility]a is requesting med list to be faxed. Please contact Musa at [phone]. . documented in this encounter Plan of Treatment Upcoming Encounters Date Type Department Care Team (Late st Contact Info) Description 06/11/2025 3:15 PM EST Office Visit [facility] [address] [place] [address] Amanda Watkins MD [address] [place] [address] 07/09/2025 3:30 PM EST Office Visit [address] [address] Amanda Watkins MD [address] [place] [address] 09/21/2025 10:00 AM EST Telemedicine [address] [address] Kayley Alanis RN documented as of this encounter Visit Diagnoses Not on filedocumented in this encounter Additional Health Concerns Assessment Noted Time PHQ-9 Depression Total Score: 14 025 2:41 PM EDT documented as of this encounter Care Teams Optical Model Maker And Tester Relationship Specialty Start Date End Date Amanda Watkins MD [address] [place] [phone] PCP - General Family Medicine 04/07/19 Hiro Ram FNP [address] [place] [address] Nurse Practitioner Family Medicine 07/06/23 Raad Arias, TheaD [address] [place] [address] Pharmacist Internal Medicine 10/19/24 [facility] 03/08/25 documented as of this encounter
--- OUTSIDE RECORDS SUMMARY | 2025-06-11 04:10 | XMS_ITS | Encounter Summary ---
Author Organization [employer] Address 75 [facility] 7t [place] [address] Care Team Providers Care Gericare Aide Name Role Phone Amanda Watkins MD Primary Care Provide r Hiro Ram OUTREACH SPECIALIST Unavailable Unavailable Raad Arias PharmD Unavailable [phone] Reason for Visit * Reason Onset Date Comments Durable Medical Equipment 07/26/2024 Encounter Details Date Type Department Care Team (Late st Contact Info) Description 07/26/2024 Telephone [facility] [address] [place] [address] Amanda Watkins MD [address] [place] [address] Durable Medical Equipment Social History Tobacco Use [...] Description 06/11/2025 3:15 PM EST Office Visit [facility] [address] [place] [address] Amanda Watkins MD [address] [place] [address] 07/09/2025 3:30 PM EST Office Visit [facility] [address] [place] [address] Amanda Watkins MD [address] [place] [address] 09/21/2025 10:00 AM EST Telemedicine [address] [address] Kayley Alanis, RN documented as of this encounter Visit Diagnoses Not on filedocumented in this encounter Additional Health Concerns Assessment Noted Time PHQ-9 Depression Total Score: 10 024 3:23 PM EDT documented as of this encounter Care Teams Gericare Aide Relationship Specialty Start Date End Date Amanda Watkins MD [address] [place] [address] PCP - General Family Medicine 04/07/19 Hiro Ram FNP [address] [place] [address] Nurse Practitioner Family Medicine 07/06/23 Raad Arias, TheaD [address] [place] [address] Pharmacist Internal Medicine 10/19/24 [facility] 07/03/22 08/16/24 Ja [facility] 08/10/24 03/12/25 [facility] 03/08/25 documented as of this encounter
--- OUTSIDE RECORDS SUMMARY | 2025-06-11 04:10 | XMS_ITS | Encounter Summary ---
Author Organization [employer] Address 75 [facility] 7t [place] [address] Care Team Providers Care Powder Monkey Name Role Phone Amanda Watkins MD Primary Care Provide r Hiro Ram WINDERMAN Unavailable Unavailable Raad Arias PharmD Unavailable [phone] Encounter Details Date Type Department Care Team (Late st Contact Info) Description 06/27/2024 Orders Only [facility] [address] [place] [address] Amanda Watkins MD [address] [place] [address] Social History Tobacco Use Types Packs/Day Years [...] Description 06/11/2025 3:15 PM EST Office Visit [address] [address] Amanda Watkins MD [address] [place] [address] 07/09/2025 3:30 PM EST Office Visit [address] [address] Amanda Watkins MD [address] [place] [address] 09/21/2025 10:00 AM EST Telemedicine [address] [address] Kayley Alanis, PHILLIP documented as of this encounter Visit Diagnoses Not on filedocumented in this encounter Additional Health Concerns Assessment Noted Time PHQ-9 Depression Total Score: 10 024 3:23 PM EDT documented as of this encounter Care Teams Powder Monkey Relationship Specialty Start Date End Date Amanda Watkins MD [address] [place] [phone] PCP - General Family Medicine 04/07/19 Hiro Ram FNP [address] [place] [address] Nurse Practitioner Family Medicine 07/06/23 Raad Arias, TheaD [address] [place] [address] Pharmacist Internal Medicine 10/19/24 [facility] 07/03/22 08/16/24 Ja [facility] 08/10/24 03/12/25 [facility] 03/08/25 documented as of this encounter
--- OUTSIDE RECORDS SUMMARY | 2025-06-11 04:10 | XMS_ITS | Encounter Summary ---
Author Organization [employer] Address 75 [facility] 7t [place] [address] Care Team Providers Care Nurse Research Name Role Phone Amanda Watkins MD Primary Care Provide r Hiro Ram WAREHOUSE ORDER PULLER Unavailable Unavailable Raad Arias PharmD Unavailable [phone] Reason for Visit * Reason Onset Date Comments Hospital Follow-up 03/23/2024 Encounter Details Date Type Department Care Team (Late st Contact Info) Description 03/23/2024 Telephone [facility] [address] [place] [address] Amanda Watkins MD [address] [place], [place] [phone] Hospital Follow-up Social History Tobacco Use Types [...] from pt requesting a HDF appt. Hospital: [facility] Date of admission: 03/18 Discharge date: 03/21 Diagnosed: Cellulitis documented in this encounter Plan of Treatment Upcoming Encounters Date Type Department Care Team (Late st Contact Info) Description 06/11/2025 3:15 PM EST Office Visit [address] [address] Amanda Watkins MD [address] [place] [address] 07/09/2025 3:30 PM EST Office Visit [address] [address] Amanda Watkins MD [address] [place] [address] 09/21/2025 10:00 AM EST Telemedicine [address] [address] Annabelle, Kayley, RN documented as of this encounter Visit Diagnoses Not on filedocumented in this encounter Additional Health Concerns Assessment Noted Time PHQ-9 Depression Total Score: 10 024 3:23 PM EDT documented as of this encounter Care Teams Nurse Research Relationship Specialty Start Date End Date Amanda Watkins MD [address] [place] [address] PCP - General Family Medicine 04/07/19 Hiro Ram FNP [address] [place] [address] Nurse Practitioner Family Medicine 07/06/23 Raad Arias, TheaD [address] [place] [phone] Pharmacist Internal Medicine 10/19/24 [facility] 07/03/22 08/16/24 Ja A 08/10/24 03/12/25 [facility] 03/08/25 documented as of this encounter
--- OUTSIDE RECORDS SUMMARY | 2025-06-11 04:10 | XMS_ITS | Encounter Summary ---
Author Organization [employer] Address 75 [facility] 7t [place] [address] Care Team Providers Care Patent Leather Sorter Name Role Phone Amanda Watkins MD Primary Care Provide r Hiro Ram EMPLOYMENT LAW ATTORNEY Unavailable Unavailable Raad Arias PharmD Unavailable [phone] Reason for Visit * Reason Onset Date Comments Med Refill 01/03/2025 Encounter Details Date Type Department Care Team (Late st Contact Info) Description 01/03/2025 Refill [facility] [address] [place] [address] Amanda Watkins MD [address] [place] [address] Chronic bilateral low back pain with bilateral [...] not with her 12/10/23 - [facility] Tele CAREER DEVELOPMENT SPECIALIST RV * Telephone Encounter - Sky Sánchez - 01/03/2025 1:12 PM EDT TC from pt requesting medication refill. Medications needing refill: oxyCODONE-acetaminophen (Percocet) 5-325 MG tablet To be sent to: [facility] - [place], [place] - [address] documented in this encounter Plan of Treatment Upcoming Encounters Date Type Department Care Team (Late st Contact Info) Description 06/11/2025 3:15 PM EST Office Visit [address] [address] Amanda [place] [address] 07/09/2025 3:30 PM EST Office Visit [address] [address] Amanda [place] [address] 09/21/2025 10:00 AM EST Telemedicine [address] [phone] Kayley Alanis RN documented as of this encounter Visit Diagnoses Diagnosis Chronic bilateral low back pain with bilateral sciatica documented in this encounter Additional Health Concerns Assessment Noted Time PHQ-9 Depression Total Score: 0 09/01/19 1:18 PM EST documented as of this encounter Care Teams Patent Leather Sorter Relationship Specialty Start Date End Date Amanda Watkins MD [address] [place] [address] PCP - General Family Medicine 04/07/19 Hiro Ram FNP [address] [place] [address] Nurse Practitioner Family Medicine 07/06/23 Raad Arias, TheaD [address] [place] [address] Pharmacist Internal Medicine 10/19/24 [facility] 08/10/24 03/12/25 [facility] 03/08/25 documented as of this encounter
--- OUTSIDE RECORDS SUMMARY | 2025-06-11 04:10 | XMS_ITS | Encounter Summary ---
Author Organization [employer] Address [address] [facility] 7t [place] [address] Care Team Providers Care Shake Packer Name Role Phone Amanda Watkins MD Primary Care Provide r Hiro Ram CLIENT DELIVERY MANAGER Unavailable Unavailable Raad Arias PharmD Unavailable [phone] Reason for Visit * Reason Onset Date Comments Nurse Triage 04/17/2025 Encounter Details Date Type Department Care Team ([facility] st Contact Info) Description 04/17/2025 Telephone [facility] [address] [place] [address] Amanda Watkins MD [address] [place] [address] Nurse Triage Social History Tobacco Use Types [...] Mary Lou Cisneros to triage below at [phone]. No answer, line not available. . Call to all other alterante numbers. Left VM to return call. Number listed as contact in [facility] visit notes as [phone]. No answer, LVM to return call to [facility] triage line. Pt has my chart [...] crying screaming in pain. Contact musa at [phone] documented in this encounter Plan of Treatment Upcoming Encounters Date Type Department Care Team (Late st Contact Info) Description 06/11/2025 3:15 PM EST Office Visit [address] [address] Amanda Watkins MD [address] [place] [address] 07/09/2025 3:30 PM EST Office Visit [address] [address] Amanda Watkins MD [address] [place] [address] 09/21/2025 10:00 AM EST Telemedicine [address] [address] Kayley Alanis, PHILLIP documented as of this encounter Visit Diagnoses Not on filedocumented in this encounter Additional Health Concerns Assessment Noted Time PHQ-9 Depression Total Score: 14 025 2:41 PM EDT documented as of this encounter Care Teams Shake Packer Relationship Specialty Start Date End Date Amanda Watkins MD [address] [place] [address] PCP - General Family Medicine 04/07/19 Hiro Ram FNP [address] [place] [address] Nurse Practitioner Family Medicine 07/06/23 Raad Arias, TheaD [address] [place] [address] Pharmacist Internal Medicine 10/19/24 [facility] 03/08/25 documented as of this encounter
--- OUTSIDE RECORDS SUMMARY | 2025-06-11 04:10 | XMS_ITS | Encounter Summary ---
Author Organization [employer] Address [address] [facility] [address] [place] [address] Care Team Providers Care Water Taxi Operator Name Role Phone Amanda Watkins MD Primary Care Provide r Hiro Ram MUSEUM INFORMATICS SPECIALIST Unavailable Unavailable Raad Arias PharmD Unavailable [phone] Encounter Details Date Type Department Care Team (Late st Contact Info) Description 12/22/2024 Orders Only [facility] [address] [place] [address] Amanda Watkins MD [address] [place] [address] Social History Tobacco Use Types Packs/Day Years [...] Description 06/11/2025 3:15 PM EST Office Visit [address] [address] Amanda Watkins MD [address] [place] [address] 07/09/2025 3:30 PM EST Office Visit [address] [address] Amanda Watkins MD [address] [place] [address] 09/21/2025 10:00 AM EST Telemedicine [address] [address] Kayley Alanis RN documented as of this [...] AM EDT Narrative 01/05/2025 9:59 AM EDT [address] [address] XRay Report Signed Patient: Mary Lou Godwin Z MR#: M [id number] : 1950 Acct:[id number] Age/Sex: 74 / F ADM Date: 01/05/25 Loc: HO.ED Attending Dr: Ordering Physician: Yelena Alvarez MD Date of Service: 01/05/25 Procedure(s): XR humerus RT Accession Number(s): [id number] cc: Amanda Watkins MD; Yelena Alvarez MD [...] 01/05/25 0956 DD/ 0935 TD/TT: 01/05/25 0948 Forestry Biology Specialist: Procedure Note Donotuseinterpreter, Image - 01/05/[address] [address] XRay Report Signed Patient: Mary Lou Godwin ZMR#: M [id number] : 1950cct:[id number] Age/Sex: 74 / FADM Date: 01/05/25 Loc: HO.ED Attending Dr: Ordering Physician: Yelena Alvarez MD Date of Service: 01/05/25 Procedure(s): XR humerus RT Accession Number(s): [id number] cc: Amanda Watkins MD; Yelena Alvarez MD [...] Hammer MD in OV> 01/05/2556 DD/ TD/TT: 01/05/25 0948 Forestry Biology Specialist: [facility] External Provider IMG XR PROCEDURES Edited Result - Final * XR Shoulder 2+ Views Right (01/05/2025 8:27 AM EDT) Anatomical Region Laterality Modality Upper Extremities, Shoulder Right Radi ographic Imaging 01/05/2025 8:27 AM EDT Narrative 01/05/2025 9:59 AM EDT [place] [address] XRay Report Signed Patient: Mary Lou Godwin MR#: M [id number] : 1950 Acct:[id number] Age/Sex: 74 / F ADM Date: 01/05/25 Loc: HO.ED Attending Dr: Ordering Physician: Yelena Alvarez MD Date of Service: 01/05/25 Procedure(s): XR shoulder RT min 2V Accession Number(s): [id number] cc: Amanda Watkins MD; Yelena Alvarez MD [...] MD in OV> 01/05/2556 DD/ 6 TD/TT: 01/05/2548 Forestry Biology Specialist: Procedure Note Donotuseinterpreter, Image - 01/05/2025 [place] [address] XRay Report Signed Patient: Mary Lou Godwin ZMR#: M [id number] : 9Acct:[id number] Age/Sex: 74 / FADM Date: 01/05/25 Loc: .ED Attending Dr: Ordering Physician: Yelena Alvarez MD Date of Service: 01/05/25 Procedure(s): XR shoulder RT min 2V Accession Number(s): [id number] cc: Amanda Watkins MD; Yelena Alvarez MD [...] in OV> 01/05/2556 DD/ 6 TD/TT: 01/05/25947 Forestry Biology Specialist: us [facility] External Provider IMG XR PROCEDURES Edited Result - Final * XR Elbow 1-2 Views Right (01/05/2025 8:27 AM EDT) Anatomical Region Laterality Modality Upper Extremities, Elbow Right Radiogr aphic Imaging 01/05/2025 8:27 AM EDT Narrative 01/05/2025 9:57 AM EDT [address] [address] XRay Report Signed Patient: Mary Lou Godwin MR#: M [id number] : 1950 Acct:[id number] Age/Sex: 74 / F ADM Date: 01/05/25 Loc: HO.ED Attending Dr: Ordering Physician: Yelena Alvarez MD Date of Service: 01/05/25 Procedure(s): XR elbow RT 2V Accession Number(s): [id number] cc: Amanda Watkins MD; Yelena Alvarez MD [...] MD in OV> 01/05/2554 DD/ 6 TD/TT: 01/05/25947 Forestry Biology Specialist: Procedure Note Donotuseinterpreter, Image - 01/05/[address] [address] XRay Report Signed Patient: Mary Lou Godwin ZMR#: M [id number] : 9Acct:[id number] Age/Sex: 74 / FADM Date: 01/05/25 Loc: HO.ED Attending Dr: Ordering Physician: Yelena Alvarez MD Date of Service: 01/05/25 Procedure(s): XR elbow RT 2V Accession Number(s): [id number] cc: Amanda Watkins MD; Yelena Alvarez MD [...] Hammer MD in OV> 01/05/25 0954 DD/ 08 TD/TT: 01/05/25 0948 Forestry Biology Specialist: [facility] External Provider IMG XR PROCEDURES Edited Result - Final documented in this encounter Visit Diagnoses Not on filedocumented in this encounter Additional Health Concerns Assessment Noted Time PHQ-9 Depression Total Score: 0 09/01/19 25 1:18 PM EST documented as of this encounter Care Teams Water Taxi Operator Relationship Specialty Start Date End Date Amanda Watkins MD [address] [place] [address] PCP - General Family Medicine 04/07/19 Hiro Ram FNP [address] [place] [address] Nurse Practitioner Family Medicine 07/06/23 Raad Arias, Carlos [address] [place] [address] Pharmacist Internal Medicine 10/19/24 Ja ARCE 08/10/24 03/12/25 [employer] 03/08/25 documented as of this encounter
--- OUTSIDE RECORDS SUMMARY | 2025-06-11 04:10 | XMS_ITS | Data Portability ---
Author Organization [employer] [facility], [facility] Address [address] [place] [address] Care Team Providers Care Agent Based Modeler Name Role Phone HIM CCA OTHER CRUZ MAURICE Primary Care Provider [phone] Assessment Encounter Date Assessment Date Assessment LastModified by Organization Details LastModified Time 03/27/2024 03/27/2024 I provided real -time medical direction via phone for this encounter, and was available for additional phone based assistance as needed. I have reviewed and agree with the Assessment and Plan as documented by the Napper Grinder. We discussed the diagnostic uncertainty of home [...] to call 911- verbalized understanding of instruction [email or web address] Not available 03/27/2024 16:48:02 05/29/2024 05/29/2024 service [...] in the field was performed by my compensation advisor colleague, as noted above, I provided real-time [...] Assessment and Plan as documented by the Napper Grinder. We discussed the diagnostic uncertainty of home [...] to call 911- verbalized understanding of instruction [email or web address] Not available 02/26/2025 13:27:16 03/23/2025 03/23/2025 service called for left shoulder pain found 74 lori with hx HTN chronic back pain fibromyalgic OA osteoporisis kidney injury (Cr 2.8), recently improved (Cr 1.2) c/o continued left shoulder pain refractory to prescribed PO oxycodone denies new trauma or injury of note records 2025-03-11 and 2025-03-09 from [facility] show R shoulder XR with chronic degenerative [...] Lab BMP, serum or plasma 2024 025 [facility], [address] [place] [address], [id number] 5 18:49:55 culture, urine 2023 024 [place] [facility] (Centralized Electronic Ordering - All Locations), Patient Can Go To The Location Of Their Choice, [id number] 4 08:09:10 urinalysis, dipstick 2023 024 [facility], [address] [place] [address], [id number] 20:30:58 Referral None recorded. Procedures None recorded. Surgeries None recorded. Imaging None recorded. Medication Orders amoxicillin 875 mg-potassiu m clavulanate 125 mg tablet 2024 025 [facility], [address] [place] [address], [id number], 5 12:52:33 amoxicillin 500 mg-potassiu m clavulanate 125 mg tablet 2024 025 [email or web address] 0 [facility], [address] [place] [address], [id number], 5 12:44:30 bacitracin 500 unit/gram topical ointment 2024 025 [facility], [address] [place] [address], [id number], 5 12:52:29 furosemide 10 mg/mL injection solution 2024 025 [email or web address] 0 [facility], [address] [place] [address], [id number], 5 13:25:40 albuterol sulfate 2.5 mg/3 mL (0.083 %) solution for nebulizatio n 2024 025 [email or web address], [address] [place] [address], [id number], 5 12:44:30 albuterol sulfate 2.5 mg/3 mL (0.083 %) solution for nebulizatio n 2024 025 [facility], [address] [place] [address], [id number], 5 12:52:33 albuterol sulfate HFA 90 mcg/actuati on aerosol inhaler 2024 025 [facility], [address] [place] [address], [id number], 5 12:52:28 Ciprodex 0.3 %-0.1 % ear drops,suspe nsion 2024 025 [facility], [address] [place] [address], [id number], 5 12:33:11 clotrimazol e 1 % topical cream 2023 024 [facility], [address] [place] [address], [id number], 4 10:37:01 bacitracin 500 unit/gram topical ointment 2023 024 [email or web address] 0 [facility], [address] [place] [address], [id number], 4 11:28:20 bacitracin 500 unit/gram topical ointment 2023 024 [facility], [address] [place] [address], [id number], 14:30:32 Patient TargetsNo targets recorded. Patient Instructions Encounter Date Encounter Id Patient Instructions Last Modified By Organization Details Last Modified Time 03/27/2024 [id number] wound care* [email or web address] Not available 11:28:21 Reason for Referral None Reported. Results Created Date Observation Date Name Description Value Unit Range Abnormal Flag Note LastModifiedBy Organization Detail LastModifiedTime 05/29/2005/31/2024 URINE CULTU RE,CO MPREH ENSIV E urine culture,comp rehensive Final report Not Available [facility] ([facility]) [address] [place], [address], 05/31/2024 08:09:10 05/29/2005/31/2024 URINE CULTU RE,CO MPREH ENSIV E result 1 COMMEN T Mixed uroge nital mary Great er than 100,0 00 colon y formi ng units per mL Not Available [facility] ([facility]) [address] [facility], [place], [address], 05/31/2024 08:09:10 Result Notes None recorded. Problems Name Problem SNOMED Code Status Onset Date Resolution Date Notes Provider Name and Address Organization Details Recorded Time Essential hypertensio n 66867528 Active 2022 Len Nguyen MD [address] [place] [address],[address], [place], [address], [employer], [employer] 18:59:08 Arterial insufficien cy 521655399 Active 2023 Len Nguyen MD [address] [facility],[address], [place], [address], [employer], [employer] 18:58:53 Asthma 851962783 Active 2023 Len Nguyen MD [address] [facility],[address], [place], [address], [employer], [employer] 18:59:00 Atrial fibrillatio n 29166567 Active 2023 Len Nguyen MD [address] [place] [address],[address], [place], [address], [place] [facility] [employer] 18:59:03 Arthritis 0216511 Active 2023 Len Nguyen MD [address] [place] [address],[address], [place], [address], [place] [employer] 18:58:58 Chronic kidney disease stage 3B 172284542 Active 2023 Len Nguyen MD [address] [place] [address],[address], [place], [address], [place] [employer] 18:58:51 Chronic diastolic heart failure 730928334 Active 2024 Len Nguyen MD [address] [place] [address],[address], [place], [address], [place] [employer] 18:58:42 Hyperglycem ia due to type 2 diabetes mellitus 8555950919333 09 Active 2024 Len Nguyen MD [address] [place] [address],[address], [place], [address], [place] [employer] 18:58:45 Moderate recurrent major depression 51035702 Active 2024 Len Nguyen MD [address] [place] [address],[address], [place], [address], [place] [employer] 18:58:37 Morbid obesity 194278462 Active 2024 Len Nguyen MD [address] [place] [address],[address], [place], [address], [place] [employer] 18:58:39 Problem Notes None recorded. Medical Equipment None Reported. Allergies Allergen ID Allergen Name Allergen Category Reaction Reaction Severity Criticality Documentation Date Start Date Code Code System Note Provider Name and Address Organization Details Recorded Time 06893 hydrocodo ne Not available Not available Not available Not available 03/23/2025 5489 RxNorm Len Nguyen MD [address] [place] [address],[address], [place], [address], [place] [employer] 18:59:23 5119 codeine medicatio n Not available Not available Not available 12/30/2023 2670 RxNorm Not Available [employer] - production 5 10:35:11 Medications Name Sig [...] Not Available Not Available Not Available [employer] [place] Lite kit USE DIRECTED TO TEST BLOOD [...] Available No t Available [employer] Mickey 2 Dunbar USE DIRECTED EVERY 8 HOURS active Not [...] % 60 /min 108/57 mm[Hg] Not Available [employer] 5 17:25:24 Date Recorded Body height Body mass index (BMI) Body weight Provider Name and Address Organization Details Last Updated DateTime 02/26/2025 134.62 cm 61.5 kg/m2 028975 g Radha Foster MD [address] [facility],[address] [facility], [place], [address], [place] - [employer] 02/26/2025 17:57:17 Date Recorded Oxygen saturation Oxygen saturation in Arterial blood by Pulse oximetry Respiratory rate Heart rate Body temperature Systolic And Diastolic Provider Name and Address Organization Details Last Updated DateTime 5 92 % 92 % 18 /min 68 /min 98.8 [degF] 152/84 mm[Hg] Not Available [employer] - production 5 12:10:50 Date Recorded Oxygen saturation Oxygen saturation in Arterial blood by Pulse oximetry Body weight Body temperature Respiratory rate Heart rate Body height Systolic And Diastolic Provider Name and Address Organization Details Last Updated DateTime 5 98 % 98 % 436708. 08 g 99 [degF] 16 /min 72 /min 154.94 cm 141/71 mm[Hg] Not Available [employer] - production 5 18:57:20 Date Recorded Respiratory rate Oxygen saturation Oxygen saturation in Arterial blood by Pulse oximetry Body height Heart rate Body temperature Body weight Systolic And Diastolic Provider Name and Address Organization Details Last Updated DateTime 4 16 /min 94 % 94 % 157.48 cm 60 /min 98.7 [degF] 751932. 448 g 129/77 mm[Hg] Not Available [employer] - [employer] 4 11:19:40 Date Recorded Heart rate Body height Body temperature Respiratory rate Oxygen saturation Oxygen saturation in Arterial blood by Pulse oximetry Body weight Systolic And Diastolic Provider Name and Address Organization Details Last Updated DateTime 4 58 /min 134.62 cm 99.3 [degF] 16 /min 95 % 95 % 638697. 632 g 150/73 mm[Hg] Not Available [employer] 4 17:02:13 Social History None recorded. Functional Status None recorded. Mental Status None recorded. Family History Nothing Reported. Medical History No medical history recorded. Gynecological HistoryNo gynecological history recorded. Obstetrics History GPAL:G 0 P 0 0 0 0 Past Encounters Encounter ID Performer Location Encounter Start Date Encounter Closed Date Diagnosis/Indication Diagnosis SNOMED-CT Code Diagnosis ICD10 Code Diagnosis IMO Codes Diagnosis Note [id number] Radha Foster MD Main - [facility] [address] [place] [phone] 12/30/2023 14:10:14 12/31/2023 21:23:21 Cellulitis of lower limb 022450807 L03.119 left lower leg primarily ? starting [...] better staph coverage-a dvised to apply sparingly. [id number] Radha Foster MD Main - [facility] [address] [place] [id number] 02/09/2024 16:16:11 02/10/2024 13:33:55 Cellulitis of lower limb 428502397 L03.119 left lower leg primarily, less on [...] better staph coverage-a dvised to apply sparingly. [id number] Angely Lake MD Main - [facility] [address] [place] [phone] 02/23/2024 15:31:54 02/23/2024 22:21:20 Peripheral vascular disease 103439143 I73.9 73 year old female being evaluated [...] assessment and plan as documented by the compensation advisor. I provided real-time medical direction for this encounter and was immediatel y available to provide additional phone-base d assistance as needed. We discussed the diagnostic uncertaint y of home visits and associated risks. We discussed the need to seek care urgently/e mergently in the setting of any new or worsening symptoms. [id number] Radha Foster MD Main - [address] [phone] 03/27/2024 11:19:23 03/27/2024 22:47:07 Wound of skin 020393181 T14.8XXA Advised to elevate the leg/not use [...] reviewed she is only allergic to codeine. [id number] Len Nguyen MD Main - [facility] [address] [place] [phone] 05/29/2024 17:02:10 05/30/2024 10:24:58 Tinea cruris 496936022 B35.6 Urinary symptoms 1585905 08 R39.9 [id number] [facility] [address] [place] [phone] 09/25/2024 17:25:19 09/26/2024 08:34:36 Otitis externa of right ear 8117835911 417665 H60.91 [id number] Radha Foster MD Main-[facility] Medical [address] [phone] 02/26/2025 12:10:42 02/26/2025 19:21:42 Peripheral edema 807872119 R60.0 44652 w/ cellulitis LLE-doubt DVT given no calf [...] exac erbation of chronic obstructive pulmonary disease 416837035 J44.1 248636 Status post neb sat 99% heart rate 71 and breath sounds clear- feels good/Needs to use 02 2lNC- sent in new albuterol mdi and nebulizer rx-patient 's nebulizer and her albuterol which may be outdated is at her daughters and she has run out of her albuterol MDI so new Rx sent. Advised using regularly will help with chronic dyspnea on exertion. [id number] Len Nguyen MD Main-[facility] ED Medical [address] [address] 03/23/2025 18:57:16 03/23/2025 23:47:02 Bilateral chronic pain of upper limbs 6234391994 0814814 M25.511 M25.512 G89.29 88586080 Health Concerns Section Related Observation LastModified by Organization Detai ls LastModified Time None Recorded Concern Status LastModified by Organization Details LastModified Time None Recorded Advance Directives Directive None Recorded Payers Insurance Date Sequence Insurance Name Policy Number Policy Meza Covered Member ID Meza Member ID Guarantor Name 03/23/2025 1 [facility] - DOS ON OR AFTER 2022 - DUAL ELIGIBLE - SNF OPTIONS AND ONE CARE (MEDICARE REPLACEMENT/ADV ANTAGE - HMO) Mary Lou Cisneros [id number] Mary Lou Cisneros Notes Date Note Type Note Provider Name and Address Organization Details Recorded Time 03/27/20 24 text/ht ml ROS as noted in the HPI CRC Nurse Triage Notes (Rishi Domínguez): Reason For Request: left leg pain Chief Complaints: Pain PMH: Diabetes, Hypertension, COPD/Asthma Other Allergies: NKDA Comments: 411 Directory Assistance Operator verified the member's name//address and phone [...] Denies SOB ................................. ................................. ................................. ................................. ......... Napper Grinder Note From Markell Villagomez: Pt s daughter/CG reports pt was seen at [facility] last week for cellulitis of the [...] ......... Disposition: Fulfilled Radha Foster MD [address] [facility],[address], [place], [address], [facility] - [employer]app 03/27/2024 16:49:56 05/29/20 24 text/ht ml HPI: pmhx: UTI, candidiasis of vagina UTI, urine retention.Call returned to [facility] to triage below. Reports having rash on callie area x 1 week. Per daughter no fluid filled spots. Small red pin point spots. Pt also having urinary frequency. Has applied Vaseline to area with mild relief. Per daughter concerned as pt is DM and has been scratching area concerned for infection. Unable to bring pt to WIC at [facility] as pt is bed bound. Agrees to [facility] referral. Confirmed address, contact number and allergies. ................................. ................................. ................................. ................................. ......... CRC Nurse Triage Notes (Melinda Melvin): Chief Complaints: Rash, UTI/Pyelonephritis PMH: COPD/Asthma, Diabetes, Hypertension, COPD/Asthma Other Allergies: CODIENE Comments: CRC RN did not require any additional information to process this visit. Napper Grinder Organization Information for Jerman Anderson Business Legal Name: [employer]. Address: [address] [place] [address], Contact Lens Cutter: Jhon HERNANDEZ No.: [id number] Napper Grinder POC Test Results from Jerman Anderson Blood [...] ++++ GLU ................................. ................................. ................................. ................................. ......... Napper Grinder Note From Jerman Anderson: [facility] visit for female pt. 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 Pt has reportedly had redness and irritation in her groin for 1 week in addition to high blood sugars. V/S taken as listed. Pt afebrile, though temp seems to be elevated with pt having taken acetaminophen today. FUNDRAISING MANAGER changed pt's diaper and redness was noted in addition to smell consistent with possible fungal infection. Obtained urine sample positive for leukocytes and nitrates and blood and glucose. Blood glucose elevated at 335 mg/dL. Family reports difficulty maintaining blood sugar and that pt has not adhered to dietary restrictions. Urine culture obtained. Consulted with [facility] Dr. Nguyen who prescribed clotrimazole and ordered urine culture. Reviewed red flags for ED. Pt education provided. Culture delivered to [facility]. [facility] Lab Orders: culture, urine: Performed ................................. ................................. ................................. ................................. ......... Disposition: Fulfilled eLn Nguyen MD [address] [place] [address],[address], [place], [address], RPO 05/29/2024 22:50:45 09/25/19 25 text/ht ml CRC [...] s/s and seek emergency treatment if needed. Napper Grinder Organization Information for Markell Villagomez Business Legal Name: [facility] Address: [address] [place] [address], Contact Lens Cutter: Rob Bhagat MD CLIA No.: [id number] Napper Grinder POC Test Results from Markell Villagomez Rapid [...] reported s/s and seek emergency treatment if needed.[facility] HPI: known FM, chronic pain, uses oxycodone and gabapentin for this. 3-7d R ear pain. some sinus congestion ................................. ................................. ................................. ................................. ......... Napper Grinder Note From Markell Villagomez: This 74-year-old female [...] this plan. ................................. ................................. ................................. ................................. ......... [facility] Consulted: Michelle Rg ................................. ................................. ................................. ................................. ......... Disposition: Mathew Rg MD [address] [place] [address],[address], [place], [address], [employer] 09/25/2024 18:01:43 02/27/20 25 text/ht ml ROS as noted in the [facility] CRC Nurse Triage Notes (Agustín Shipley): Reason For Request: Pt's FUNDRAISING MANAGER reporting discoloration changes in her legs (redness)Denies: [...] 74 y.o female complains of Extremity PainPatient's FUNDRAISING MANAGER calling reporting patient is having red discoloration to L lower leg for the last two weeks. FUNDRAISING MANAGER reports this has happened before and the [...] H&H on 08/02/2024 was 7.4 and 25.3 Napper Grinder Organization Information for Garrick El Josh Kapadia Legal Name: [employer]. Address: [address] [place] [address], Contact Lens Cutter: Jhon HERNANDEZ No.: [id number] Napper Grinder POC Test Results from [place] [facility] iSTAT Chem8+ (12:24:44) Na: 135 mEq/L K: 4.2 mEq/L Cl: 93 mEq/L iCa: 1.05 mmol/L TCO2: 32 mmol/L Glu: 264 mg/dL BUN: 23 mg/dL Crea: 1.4 mg/dL Hct: 24 % Hb: 8.2 g/dL A mmol/L Cartridge Number: [id number] Attachments uploaded as part of this test result can be found under Documents section. ................................. ................................. ................................. ................................. ......... Napper Grinder Note From [place]: Encountered patient supine [...] or inflammation. BMP performed, values uploaded via [employer]. Skin warm, dry and of appropriate color [...] below the knee; peripheral pulses present throughout. [facility] contacted: reports they will treat patient for a suspected infection while also addressing possible fluid retention. Augmentin x1 administered. Albuterol neb treatment x1 administered. 40mg IM Furosemide administered. All medications administered after reconciling r ights with patient and family. [facility] reports they will send a prescription [...] states she is comfortable remaining home today. [facility] Lab Orders: BMP, serum or plasma: Performed [facility] Medication Orders: amoxicillin 500 mg-potassium clavulanate 125 mg tablet: Administered furosemide 10 mg/mL injection solution: Administered albuterol sulfate 2.5 mg/3 mL (0.083 %) solution for nebulization: Administered ................................. ................................. ................................. ................................. ......... [facility] Consulted: Radha Foster ................................. ................................. ................................. ................................. ......... Disposition: Mathew Foster MD [address] [facility],[address], [place], [address], [employer] 02/26/2025 18:08:10 03/23/20 25 text/ht ml CRC [...] emergency care. ................................. ................................. ................................. ................................. ......... Napper Grinder Note From Jerman Anderson: [facility] visit for female patient complaining of left shoulder pain. Patient is Northern Irish-speaking and an banquet bartender was used by phone throughout visit. Patient [...] taken is listed. Patient afebrile. Consulted with [facility] doctor timothy who advised that do patients chronic kidney disease we would not be able to administer NSAIDs or any other pain agents at this time. Patient told that she would have to follow up with primary care or go to the emergency department for any stronger pain medication. Patient education provided. ................................. ................................. ................................. ................................. ......... [facility] Consulted: Len Nguyen ................................. ................................. ................................. ................................. ......... Disposition: Fulfilled Len Nguyen MD [address] [facility],[address], [place], [address], RPO 03/23/2025 22:05:38 OBGyn Episode No OBEpisode recorded.
--- OUTSIDE RECORDS SUMMARY | 2025-06-11 04:10 | XMS_ITS | Encounter Summary ---
Author Organization [employer] Address [address] [facility] [address] [place] [address] Care Team Providers Care Dietary Clerk Name Role Phone Amanda Watkins MD Primary Care Provide r Hiro Ram APPLICATION ASSISTANT Unavailable Unavailable Raad Arias PharmD Unavailable [phone] Reason for Visit * Reason Onset Date Comments Hospital Follow-up 04/04/2024 Encounter Details Date Type Department Care Team (Late st Contact Info) Description 04/04/2024 Telephone [facility] [address] [place] [address] Amanda Watkins MD [address], [place] [phone] Hospital Follow-up Social History Tobacco Use Types [...] from pt requesting a HDF appt. Hospital: [facility] Date of admission: 03/18 Discharge date: 03/21 Diagnosed: Cellulitis documented in this encounter Plan of Treatment Upcoming Encounters Date Type Department Care Team (Late st Contact Info) Description 06/11/2025 3:15 PM EST Office Visit [address] [address] Amanda Watkins MD [address] [place] [address] 07/09/2025 3:30 PM EST Office Visit [address] [address] Amanda Watkins MD [address] [place] [address] 09/21/2025 10:00 AM EST Telemedicine [address] [address] Annabelle, Kayley, RN documented as of this encounter Visit Diagnoses Not on filedocumented in this encounter Additional Health Concerns Assessment Noted Time PHQ-9 Depression Total Score: 10 024 3:23 PM EDT documented as of this encounter Care Teams Dietary Clerk Relationship Specialty Start Date End Date Amanda Watkins MD [address] [place] [address] PCP - General Family Medicine 04/07/19 Hiro Ram FNP [address] [place] [address] Nurse Practitioner Family Medicine 07/06/23 Raad Arias, TheaD [address] [place] [address] Pharmacist Internal Medicine 10/19/24 [facility] 07/03/22 08/16/24 Ja A 08/10/24 03/12/25 [facility] 03/08/25 documented as of this encounter
[2025-06-11 04:18] LABS: Glucose, Whole Blood 465 mg/dL (60-115)
[2025-06-11] MEDS: Insulin Glargine,Hum.rec.anlog 100 UNIT/ML 10 ML VIAL 9 UNIT SUBCUT (04:27)
[2025-06-11] MEDS: Lactated Ringers 1,000 ML 999 ML IV (04:28)
--- NOTE | 2025-06-11 05:09 | PC.NURSE ---
continues to yell out at this time. pt takes po meds ordered PRN without difficulty. monitoring pt presently for changes in condition
[2025-06-11 06:41] LABS: Glucose, Whole Blood 421 mg/dL (60-115)
[2025-06-11 07:07] LABS: Appearance Urine Clear; Glucose Urine UA >=1000 mg/dL (Negative); PH 6.0 (5.0-9.0); Specific Gravity - Urine <= 1.005 (1.005-1.025); UMIC TRIGGER UACC YES
--- NOTE | 2025-06-11 07:19 | PC.NURSE ---
This RN resumed care of patient at 0700, pt continued to yell out, this RN and a tech helped pt up to commode, pt able to urinate, UA sent at that time, pt bed changed d/t being soaked in urine, pt helped with hygiene care and helped back into bed, pt has been resting quietly at this time since, cell phone given to pt, call jacome within reach. Awaiting dispo plan at this time.
--- NOTE | 2025-06-11 10:19 | MHC.CM.ED ---
Addendum entered by Mayda Botello 06/11/25 11:19: Received telephone call from patient's nancyerAby. Aby can be reached via telephone at [phone]. [facility] requesting BLS transport. Transport booked for 12pm. Patient, Alie FISHER and Bing MCNEILL aware. Original Note: Received case management consult overnight from Dr Hyde. Patient came to the ER due to pain and high blood sugar. Work up did not indicate admission to the hospital. Patient is active with [facility]. Attempted to meet with patient. Patient currently sleeping. Attempted to speak to [employer] via telephone at [phone] and [phone]. Neither phone is accepting calls or are able to record messages. Spoke with patient's daughter, Nai, via telephone at [phone]. aNi verifies patient is not interested in STR and consistently declines STR. Nai's niece will transport patient home. Alie FISHER and Bing MCNEILL aware. Continue to monitor for d/c needs.
--- NOTE | 2025-06-11 12:33 | PC.NURSE ---
Pt sleeping at this time. Breathing equal and unlabored. Awaiting EMS transport home with [facility]
[2025-06-11 16:18] LABS: Glucose, Whole Blood 242 mg/dL (60-115)
== END 2025-06-11 16:25 | disposition home or self-care (01) ==
PROVIDERS: Physician Assistant Medical; Emergency Provider Emergency Medicine; PCP Internal Medicine
DX: E11.65 Type 2 diabetes mellitus with hyperglycemia (principal); Z79.4 Long term (current) use of insulin; R45.1 Restlessness and agitation; F60.4 Histrionic personality disorder; G93.40 Encephalopathy, unspecified; E11.22 Type 2 diabetes mellitus with diabetic chronic kidney disease; I13.0 Hypertensive heart and chronic kidney disease with heart failure and stage 1 through stage 4 chronic kidney disease, or unspecified chronic kidney disease; N18.30 Chronic kidney disease, stage 3 unspecified; I50.32 Chronic diastolic (congestive) heart failure; D64.9 Anemia, unspecified; M81.0 Age-related osteoporosis without current pathological fracture; Z79.899 Other long term (current) drug therapy
CPT/HCPCS: 36415; 80053; 81001; 82010; 82803; 82947; 83735; 85007; 85027; 96361; 96372; 96374; 96375; 99284; 99285; J2250; J3486; J7120

== ENCOUNTER 2025-06-12 13:44 | Emergency (ER) | payer OTHER, SELFPAY ==
--- OUTSIDE RECORDS SUMMARY | 2025-03-06 05:50 | XMS_ITS ---
Author Organization [facility] Address [address] [place] [address] Care Team Providers Care Garment Liner Name Role Phone Amanda Adame M.D. Primary Care Provider Geoff Leon Jr, João Marie REASON FOR VISIT anemia Encounters Encounter Location Date Provider [place] [facility] [place] [address] [place], [place] [id number] 03/06/2025 João Leon Jr Plan Of Treatment Next Appt Details Provider Name:João yañez Jr, 07/26/2025 02:15:00 PM, [address], [address], [place], [address], Progress Notes * JP MORGANDOB:[birth year] (74 yo F)Acc No.[id number]:03/06/2025 EGD and COL/MAC Patient: JP HINKLE Provider: Shannan Leon MD :1950 A ge:74 Y S ex:Female Date:03/06/2025 Address:[address] [place] [address] [address] , [place], [place] Pcp:Amanda Adame M.D. Subjective: * Chief Complaints: * 1 . Anemia. * Medical History: Objective: * Vitals: Assessment: Plan: * Treatment: * * The named appointment provid er may or may not be the originator of this progress note, and it is not deemed complete until electronically signed by the appointment provider. Sign off status: Pending * Provider: Shannan Leon MD Date: 0 03/06/2025 Generated for Selene garcia/Thad/Miriamitting on: 1 08/12/2024 05:40 PM EST
--- OUTSIDE RECORDS SUMMARY | 2025-06-08 13:00 | XMS_ITS | Encounter Summary ---
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 [address] [place] [address] Kayley Alanis RN Long-term current use of opiate analgesic Social History Tobacco Use Types Packs/Day Years [...] as of this encounter Progress Notes * Kayley Alanis RN - 06/08/2025 2:00 PM EDT SUBJECTIVE: Mary Lou Cisneros is a 74 y.o. 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 The patient last took Percocet on: 06/08/2025 Medication is: 55% % effective at alleviating pain. [place] [facility] [place], s/p fall with left arm pain. She was provided IV Morphine at hospital and was discharged home with Percocet 5mg #6 tablets at that time. OBJECTIVE: PATTERN GRADER CUTTER checked: 06/08/2025 Pill count completed for Percocet , patient reports count today is 1 , anticipated count should be 0, this is as expected. 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 Long-term current use of opiate analgesic PLAN: Information on pain group given: Previously discussed Information on acupuncture given: Previously discussed Narcan education provided: Previously discussed Narcan prescription: active Will send request to PCP for percocet refill. Mary Lou Cisneros will continue taking medication as prescribed and follow up at the next Tele SHOTGUN SHELL LOADING MACHINE OPERATOR visit or sooner if needed. Mary Lou Cisneros has verbalized understanding of care plan. Future Appointments Date Time Provider Department Center 06/11/2025 3:15 PM Amanda Myers MD MEDICINE [facility] 07/09/2025 3:30 PM Amanda Myers MD [facility]INE [facility] 09/21/2025 10:00 AM Kayley Alanis, RN [facility]ICINE [facility] Kayley Alanis RN [1] Current Outpatient Medications: oxyCODONE-acetaminophen (Percocet) 5-325 MG tablet, Take 1 tablet by mouth every 6 (six) hours if needed for severe pain for up to 5 days., Disp: 15 tablet, Rfl: 0 acetaminophen (Acetaminophen 8 Hour) 650 MG ER tablet, Take 650 mg by mouth every 8 (eight) hours if needed for mild pain. Do not crush, chew, or split., Disp: , Rfl: albuterol (2.5 MG/3ML) 0.083% nebulizer solution, Take 3 mL by nebulization every 6 (six) hours., Disp: , Rfl: albuterol 108 (90 Base) MCG/ACT inhaler, Inhale 1 puff if needed in the morning, at noon, in the evening, and at bedtime for wheezing or shortness of breath., Disp: , Rfl: Alcohol Swabs (Alcohol Prep) 70 % pads, USE DIRECTED TO TEST BLOOD SUGAR THREE TIMES DAILY, Disp: 100 each, Rfl: 11 amLODIPine (Norvasc) 5 MG tablet, TAKE 1 TABLET BY MOUTH EVERY MORNING, Disp: 30 tablet, Rfl: 3 atorvastatin (Lipitor) 80 MG tablet, TAKE 1 TABLET BY MOUTH AT BEDTIME, Disp: 90 tablet, Rfl: 1 Blood Glucose Monitoring Suppl (Foxfly Orange Lite) w/Device kit, Use to test blood sugar 3 times daily, Disp: 1 kit, Rfl: 0 Continuous Glucose Die Equipment Operator (FreeStyle Mickey 3 [place]) device, 1 each Once per day. Use as directedfor CGM, Disp: 1 each, Rfl: 0 Continuous Glucose Sensor (FreeStyle Mickey 3 Plus Sensor) misc, 1 each every 15 days. Apply 1 every15 days as directed for CGM, Disp: 2 each, Rfl: 11 Diclofenac Sodium 1 % gel, Apply 1 Application topically every 12 (twelve) hours if needed (apply if needed)., Disp: 150 g, Rfl: 1 docusate sodium (Colace) 100 MG capsule, TAKE 1 CAPSULE BY MOUTH TWICE DAILY, Disp: 60 capsule, Rfl: 3 DULoxetine (Cymbalta) [address] capsule, TAKE 1 CAPSULE BY MOUTH EVERY MORNING, Disp: 30 capsule, Rfl: 1 Eliquis 5 MG tablet, TAKE 1 TABLET BY MOUTH TWICE DAILY IN THE MORNING AND AT BEDTIME, Disp: 60 tablet, Rfl: 2 Eye Itch Relief 0.035 % solution, INSTILL 1 DROP AFFECTED EYE(S) EVERY TWELVE HOURS NEEDED, Disp: 10 mL, Rfl: 1 Ferrocite 324 MG tablet, Take 1 tablet by mouth Once per day., Disp: , Rfl: FREESTYLE LITE test strip, Use to test blood sugar 3 times daily, Disp: 100 each, Rfl: 12 gabapentin (NEURONTIN) 400 MG tablet, Take 1 tablet (400 mg) by mouth 3 times daily., Disp: 90 tablet, Rfl: 2 hydrOXYzine HCl (Atarax) 25 MG tablet, Take 1 tablet (25 mg) by mouth every 8 (eight) hours if needed for anxiety., Disp: 90 tablet, Rfl: 0 insulin degludec (Tresiba FlexTouch) 200 UNIT/ML injection, Inject 64 units under the skin daily, Disp: 18 mL, Rfl: 5 ketoconazole (NIZOral) 2 % shampoo, Apply topically 2 (two) times a week., Disp: 120 mL, Rfl: 2 levothyroxine (Synthroid, Levoxyl) 100 MCG tablet, Take 1 tablet (100 mcg) by mouth before breakfast., Disp: 90 tablet, Rfl: 0 lidocaine (Lidoderm) 5 % patch, Apply 1 patch topically Once per day. Remove & discard patch within 12 hours or as directed by MD., Disp: 30 patch, Rfl: 1 melatonin 5 MG tablet, Take 1 tablet (5 mg) by mouth at bedtime., Disp: 90 tablet, Rfl: 0 naloxone (Narcan) 4 mg/0.1 mL nasal spray, spray 0.1 milliliter by intranasal route in 1 nostril may repeat dose every 2-3 minutes as needed alternating nostrils with each dose, Disp: , Rfl: nitroglycerin (Nitrostat) 0.3 MG SL tablet, DISSOLVE 1 TABLET UNDER THE TONGUE EVERY 5 MINUTES NEEDED FOR CHEST PAIN. CALL 911 IF NO RELIEF. DO NOT EXCEED 3 TABLETS IN 15 MINUTES, Disp: 100 tablet, Rfl: 1 omeprazole (PriLOSEC) [address] capsule, TAKE 1 CAPSULE BY MOUTH EVERY MORNING BEFORE BREAKFAST. DO NOT BREAK, CRUSH, DISSOLVE OR CHEW, Disp: 30 capsule, Rfl: 11 Oyster Shell Calcium 500 MG tablet, TAKE 1 TABLET BY MOUTH TWICE DAILY IN THE MORNING AND AT BEDTIME, Disp: 180 tablet, Rfl: 1 pen needle 32G x 4 mm misc, Use daily with insulin, Disp: 100 each, Rfl: 3 Tirzepatide (Mounjaro) 7.5 MG/0.5ML solution auto-injector, Inject 7.5 mg under the skin 1 (one) time per week., Disp: 2 mL, Rfl: 1 torsemide (Demadex) 20 MG tablet, TAKE 1 TABLET BY MOUTH EVERY MORNING, Disp: 30 tablet, Rfl: 3 traZODone (Desyrel) 150 MG tablet, Take 1 tablet (150 mg) by mouth at bedtime., Disp: 90 tablet, Rfl: 2 TRUEplus Lancets 33G misc, USE DIRECTED TO TEST BLOOD SUGAR THREE TIMES DAILY, Disp: 100 each, Rfl: 5 documented in this encounter Plan of Treatment Upcoming Encounters Date Type Department Care Team (Late st Contact Info) Description 07/09/2025 3:30 PM EST Office Visit [facility] [address] [place] [address] [phone] Amanda Watkins MD [address] [place], [place] [phone] 09/21/2025 10:[address] [facility] [address] [place] [address] Kayley Alanis, RN documented as of this encounter Visit Diagnoses Diagnosis Long-term current use of opiate analgesic Encounter for long-term (current) use of other medications documented in this encounter Additional Health Concerns Assessment Noted Time PHQ-9 Depression Total Score: 14 025 2:41 PM EDT documented as of this encounter Care Teams Linux Admin Engineer Relationship Specialty Start Date End Date Amanda Watkins MD [address] [place] [id number] PCP - General Family Medicine 04/07/19 Hiro Ram FNP [address] [place] [id number] Nurse Practitioner Family Medicine 07/06/23 Raad Arias, TheaD [address] [place] [address] [phone] Pharmacist Internal Medicine 10/19/24 [facility] 03/08/25 documented as of this encounter
--- NOTE | ~2025-06-12 | CT_ITS ---
EXAMINATION: CT HEAD WITHOUT IV CONTRAST HISTORY: fall, +HS on AC. TECHNIQUE: Unenhanced helical CT of the head was performed per standard departmental protocol. Coronal and sagittal reformats of the head were also evaluated. One or more of the following techniques was used for dose reduction: Automated exposure control, adjustment of the mA and/or kV according to patient size, use of iterative reconstruction technique. DLP: 913 mGy-cm COMPARISON: Previous head CT June 03, 2025 FINDINGS: BRAIN: There is no evidence of an extra-axial collection. There is no evidence of intra or extra-axial hemorrhage. The ventricles and extra-axial CSF spaces are prominent suggestive of generalized atrophy. There is nonspecific periventricular white matter disease. There is an old right thalamic lacunar infarct unchanged. No mass, mass effect or acute infarct. SINUSES: The visualized paranasal sinuses are clear. The mastoid air cells and middle ear cavities are well pneumatized. ORBITS: The visualized orbits are unremarkable. BONES/SOFT TISSUES: The extracranial soft tissues are unremarkable. The calvarium is intact. No suspicious lytic or sclerotic lesions. CT/CT head/brain wo IV con IMPRESSION: No acute intracranial abnormality. Mild generalized atrophy, nonspecific periventricular white matter disease and old right thalamic lacunar infarct similar to prior exams. Electronically signed by: Trina Cyr MD 06/12/2025 03:52 PM [facility]
--- NOTE | ~2025-06-12 | CT_ITS ---
EXAMINATION: CT CERVICAL SPINE WITHOUT CONTRAST CLINICAL INFORMATION: Status post fall. Headache. COMPARISON: June 03, 2025. TECHNIQUE: Contiguous axial images through the cervical spine using 3 mm collimation with bone and soft tissue algorithm. Sagittal and coronal reformatted images acquired. This CT examination was performed using dose optimization techniques as appropriate, variously including the following: *Automated exposure control *Adjustment of mA and/or kV according to patient size (this includes techniques or standardized protocols for targeted exams where dose is matched to indication/reason for exam; i.e. extremities or head) *Use of iterative reconstruction technique. DLP: 737.15 mGy-cm FINDINGS: Craniocervical junction is intact with normal alignment between the occipital condyles and lateral masses of C1. Degenerative changes in the periodontal C1 region. Multilevel marginal osteophyte formation, endplate sclerosis, subchondral cyst formation and decreased intervertebral disc height with vacuum phenomenon at C4-5, C5-6 levels. Multilevel facet joint hypertrophy. Reverse curvature apex at C4-5 which could be positional. Normal alignment between the vertebral bodies and the facet joints. C1 is intact. C2 is intact. C3 is intact. C4 is intact. C5 is intact. C6 is intact. C3 7 is intact. No gross prevertebral soft tissue hematoma. Calcified plaques in the carotic arteries. Heterogeneous nodular prominent thyroid gland. Dystrophic calcification right thyroid lobe. Tympanic cavities and mastoid cells are aerated. Patient's large body habitus/obesity. CT/CT cervical spine wo IV con IMPRESSION: Multilevel cervical spondylosis pronounced at C4-5 and C5-6 without acute fracture or trauma-related listhesis. Heterogeneous nodular prominent thyroid gland. Fleischner guidelines were followed. Electronically signed by: Son Brennan MD 06/12/2025 03:39 PM EST
--- NOTE | ~2025-06-12 | XR_ITS ---
CLINICAL HISTORY: pain s p FOOB 4 views right knee Comparison: None Findings: No fractures or dislocations. No joint effusion. There is mild medial compartment joint space narrowing with moderate medial compartment spurring. Very minimal lateral compartment spurring is present.. No radiopaque foreign body. Impression: 1. Medial compartment predominant degenerative disease as described above. This document has been electronically signed by: Jhon Yousif MD on 06/12/2025 17:47:15
[2025-06-12 14:09] VITALS: BP 139/51; BP 154/74; PULSE 64; PULSE 68; RESP 20; TEMP 36.6; O2SAT 97; O2SAT 98
[2025-06-12 14:10] VITALS: BMI 45.0
--- NOTE | 2025-06-12 14:14 | ED.HEATRA ---
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 She reports that she struck her head. No LOC. Patient states that she was feeling okay prior to the fall. Daughter at bedside reports that she is acting at her normal baseline. Daughter reports that patient is currently living alone, and they do not have enough resources to take care of herself She states that she did not sleep well last night. Patient denies any headache, dizziness, blurred vision, double vision, chest pain, shortness of breath, abdominal pain, nausea, vomiting or diarrhea. She does report right knee pain. No other complaints or concerns at this time. MD Complaint: head injury and fall Onset (ago): hour(s) Arrival Conditions: C-spine immobilization present Mechanism of Injury: fall Place: home Loss of Consciousness: no Other Injuries: none Context: other anticoagulant use (eliquis) Associated symptoms: denies other symptoms Related Data Home Medications ?Medication ?Instructions ?Recorded ?Confirmed atorvastatin 80 mg tablet 80 mg PO BEDTIME 04/07/21 06/13/25 duloxetine 20 mg capsule,delayed 20 mg PO DAILY 03/18/24 06/13/25 release omeprazole 40 mg capsule,delayed 40 mg PO DAILY@0630 03/18/24 06/13/25 release trazodone 150 mg tablet 150 mg PO BEDTIME 10/06/24 06/13/25 calcium carbonate (Oyster Shell 500 mg PO BID 12/06/24 06/13/25 Calcium 500) hydroxyzine HCl 25 mg tablet 25 mg PO Q8H PRN anxiety 12/06/24 06/13/25 albuterol sulfate 2.5 mg/3 mL 2.5 mg inhalation Q6H PRN 03/04/25 06/13/25 (0.083 %) solution for nebulization Shortness Of Breath Or Wheezing albuterol sulfate 90 mcg/actuation 2 puff inhalation QID PRN 03/04/25 04/18/25 aerosol inhaler Shortness Of Breath Or Wheezing aspirin 81 mg tablet,delayed 81 mg PO QAM 04/18/25 04/18/25 release cyclobenzaprine 5 mg tablet 5 mg PO TID 04/18/25 04/18/25 docusate sodium 100 mg capsule 100 mg PO BID 04/18/25 06/13/25 insulin degludec 200 unit/mL (3 64 unit subcut DAILY 04/18/25 06/13/25 mL) subcutaneous pen (Tresiba FlexTouch U-200 insulin) melatonin 5 mg tablet 5 mg PO BEDTIME 04/18/25 06/13/25 tirzepatide 5 mg/0.5 mL 5 mg subcut FR 04/18/25 04/18/25 subcutaneous pen injector (Mounjaro) gabapentin 400 mg capsule 400 mg PO TID 06/13/25 06/13/25 tirzepatide 7.5 mg/0.5 mL 7.5 mg subcut QWEEK 06/13/25 06/13/25 subcutaneous pen injector (Mounjaro) Previous Rx's ?Medication ?Instructions ?Recorded apixaban 5 mg tablet (Eliquis) 5 mg PO BID #60 tabs 11/03/23 amlodipine 5 mg tablet 5 mg PO DAILY #30 tabs 06/20/24 torsemide 20 mg tablet 20 mg PO DAILY #30 tabs 06/20/24 levothyroxine 100 mcg tablet 100 mcg PO DAILY@0600 #90 tabs 03/07/25 (Synthroid) ferrous fumarate 324 mg (106 mg 324 mg PO DAILY #90 tabs 03/22/25 iron) tablet acetaminophen 325 mg tablet 650 mg (2 x 325 mg) PO Q6H PRN 04/20/25 Pain, Mild 1-3,Fever,Headache 30 days #240 tabs oxycodone 5 mg tablet 5 mg PO Q6H PRN pain 7 days #28 04/20/25 tabs oxycodone-acetaminophen 5 mg-325 1 tab PO Q8H PRN severe pain 06/03/25 mg tablet (Percocet) (scale score 7-10) #6 tabs Allergies Allergy/AdvReac Type Severity Reaction Status Date / Time codeine (CODEINE) Allergy Intermediate HALLUCINATI Verified 06/12/25 14:21 ONS Review of Systems Review of Systems: Constitutional : No Fever, No Chills ENT/Mouth : No sore throat, No Rhinorrhea Eyes: No Eye Pain, No Swelling, No Redness Cardiovascular : No Chest Pain, No SOB Respiratory : No Cough, No Sputum Gastrointestinal : No Nausea, No Vomiting, No Diarrhea, No abdominal Pain Genitourinary : No Dysuria, No Hematuria Musculoskeletal : No joint pain, No Myalgias, No Joint Swelling Skin : No Skin Lesions Neuro : No Weakness, No Numbness, No Headache All other systems reviewed and are negative Yes all other systems are reviewed and are negative Constitutional: Constitutional: Reports as per [facility] Past Medical History Medical History Septic joint of right shoulder region Septic arthritis Urinary incontinence (HFpEF) heart failure with preserved ejection fraction Anxiety Insomnia CKD (chronic kidney disease) CKD stage 3 due to type 2 diabetes mellitus Leg abrasion Abuse of non-prescription analgesics Type 2 diabetes mellitus with unspecified complications Other and unspecified hyperlipidemia Essential hypertension Atherosclerotic cardiovascular disease Urgency incontinence Osteoporosis Arthritis Asthma Hypertension Fibromyalgia Diabetes mellitus Surgical History H/O tubal ligation History of hernia repair Social History Social History Household Members: Children Household Members Other:: son Housing: Apartment Are you a primary in home caregiver to a significant other at home: No Do you presently have visiting nurse or other home services: No Alcohol intake: never 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 Patient Tobacco Use Status: Never used Tobacco e-Cigarette/Vaping Use: Never Used Advance Directives: Yes Advance Directives on File: Yes Advance Directives Date on File: 04/07/24 service: No Sexual orientation: Straight/Heterosexual Physical Exam Vital Signs: Vital Signs: Last Vital Signs Temp 97.8 F 06/13/25 09:34 Pulse 59 06/13/25 09:34 Resp 18 06/13/25 09:34 BP 136/48 L 06/13/25 09:37 Pulse Ox 98 06/13/25 09:34 O2 Del Method Nasal Cannula 06/13/25 09:34 O2 Flow Rate 2 06/13/25 09:34 BMI result Body Mass Index 45.2 Const: General: cooperative, comfortable and no acute distress Orientation/consciousness: patient oriented x3 Limitations: no limitations HEENT: Head: Yes normal to inspection, Yes normocephalic and Yes atraumatic Ears: hearing grossly normal bilaterally General nose exam: Normal external nose present Face and sinus: Yes normal facial exam Mouth: Normal oral and palatal mucosa present, oropharynx normal and moist mucous membranes Throat: Yes posterior oropharynx normal Eyes: General: appearance normal, both eyes and all related structures Eyelids: Yes eyelids normal Conjunctivae: conjunctivae normal Sclerae: sclerae normal Pupils: Equal, round and reactive pupils present EOM: EOMs intact bilaterally Neck: Other: No midline spine TTP. Neck: Yes normal visual inspection, Yes full ROM and Yes no lymphadenopathy Lymphatic: no lymphadenopathy noted Chest: Chest palpation & inspection: normal inspection of the chest Resp: Effort & Inspection: normal respiratory effort and able to speak in complete sentences Auscultation: clear to auscultation bilaterally, no crackles, no rales, no rhonchi and no wheezes Cardio: Rate: regular rate Rhythm: regular rhythm Heart sounds: S1 normal heart sound present and S2 normal heart sound present GI: Inspection: Yes normal to inspection Skin: General skin exam: no rashes or lesions noted Trauma: no lacerations or abrasions Wounds: no wounds Neuro: General: patient oriented x3, moves all extremities and Unable to assess gait Cranial nerves: Yes CN's II-XII intact bilaterally and Yes Equal, round and reactive pupils present Cognition (Neuro): normal cognition Gait exam (Neuro): Unable to assess gait Motor exam (neuro): 5/5 motor strength present throughout and Pronator motor function not present Extrem: General: Yes normal to inspection Right upper extremity: normal to inspection Left upper extremity: normal to inspection Right lower extremity: normal to inspection Left lower extremity: normal to inspection NIH Stroke Scale Internal: Initial- Upon Arrival Level of Consciousness: Alert Level of Consciousness Questions: Answers both questions correctly Level of Consciousness Commands: Performs both tasks correctly Best Gaze: Normal Visual: No visual loss Facial Palsy: Normal Motor Arm (Right): No drift Motor Arm (Left): No drift Motor Leg (Right): No drift Motor Leg (Left): No drift Limb Ataxia: Absent Sensory: Normal Best Language: No aphasia Dysarthia: Normal Extinction and Inattention: No abnormality Score: 0 Course Course Course Narrative: Time: 08:51 Date: 06/13/25 Provider: CARLOS Jackson Patient in physician observation for case management needs. No acute events reported overnight.? No current issues or complaints. VS stable. blood glucose 317, no gap. Patient is pendingPT/CM eval. Will continue to monitor. Time: 10:40 Date: 06/13/25 Provider: CARLOS Jackson Physician observation ended at 1040. Physical therapy has evaluated patient, recommending short-term rehab. Patient is declining at this time. Patient will be discharged home with VNA services. Her daughter will be transporting her home today. Medications Administered Generic Name Dose Route Start Last Admin Trade Name Freq PRN Reason Stop Dose Admin Amlodipine Besylate 5 mg 06/13/25 09:00 06/13/25 09:36 Amlodipine Besylate 5 Mg Tablet PO 5 mg DAILY JULIANNE Administration Protocol Apixaban 5 mg 06/13/25 09:00 06/13/25 09:37 Apixaban 5 Mg Tablet PO 5 mg BID JULIANNE Administration Calcium Carbonate 500 mg 06/13/25 09:00 06/13/25 09:36 Calcium Oyster Shell Elemental 500 Mg Tablet PO 500 mg BID JULIANNE Administration Docusate Sodium 100 mg 06/13/25 09:00 06/13/25 09:37 Docusate Sodium 100 Mg Capsule PO 100 mg BID JULIANNE Administration Duloxetine HCl 20 mg 06/13/25 09:00 06/13/25 09:36 Duloxetine Hcl 20 Mg Capsule.Dr PO 20 mg DAILY JULIANNE Administration Gabapentin 400 mg 06/13/25 09:00 06/13/25 09:37 Gabapentin 400 Mg Capsule PO 400 mg TID JULIANNE Administration Hydroxyzine HCl 25 mg 06/13/25 03:42 06/13/25 05:55 Hydroxyzine Hcl 25 Mg Tablet PO 25 mg Q8H PRN Administration Anxiety Insulin Glargine 44 unit 06/13/25 09:00 06/13/25 09:38 Insulin Glargine,Hum.Rec.Anlog 100 Unit/Ml 10 Ml Vial SUBCUT 44 unit DAILY JULIANNE Administration Insulin Human Lispro 0 unit 06/13/25 07:30 06/13/25 07:18 Insulin Lispro 100 Unit/Ml 3 Ml Vial SUBCUT 06/14/25 07:04 8 unit QIDACHS [facility] Administration Protocol Levothyroxine Sodium 100 mcg 06/13/25 06:00 06/13/25 05:55 Levothyroxine Sodium 100 Mcg Tablet PO 100 mcg DAILY@0600 [facility] Administration Omeprazole 40 mg 06/13/25 06:30 06/13/25 05:55 Omeprazole 40 Mg Capsule.Dr PO 40 mg DAILY@0630 [facility] Administration Torsemide 20 mg 06/13/25 09:00 06/13/25 09:37 Torsemide 20 Mg Tablet PO 20 mg DAILY [facility] Administration Protocol Discontinued Medications Generic Name Dose Route Start Last Admin Trade Name Jesusq PRN Reason Stop Dose Admin Acetaminophen 975 mg 06/13/25 02:29 06/13/25 02:41 Acetaminophen 325 Mg Tablet PO 06/13/25 02:30 975 mg ONCE ONE Administration Sodium Chloride 1,000 mls @ 999 mls/hr 06/12/25 15:56 06/12/25 20:06 Ns IV 06/12/25 16:56 Infused .Q1H1M ONE Infusion Acetaminophen 1,000 mg in 100 mls @ 400 mls/hr 06/12/25 16:44 06/12/25 17:15 Ofirmev IV 06/12/25 16:58 Infused ONCE ONE Infusion Insulin Human Lispro 10 unit 06/12/25 17:16 06/12/25 17:54 Insulin Lispro 100 Unit/Ml 3 Ml Vial SUBCUT 06/12/25 17:17 10 unit ONCE ONE Administration Oxycodone HCl 5 mg 06/13/25 02:29 06/13/25 02:41 Oxycodone Hcl Immed Release 5 Mg Tablet PO 06/13/25 02:30 5 mg ONCE ONE Administration Medical Decision Making Medical Decision Making MDM Narrative: 74-year-old Zimbabwean-speaking female with medical history of CKD stage 3, type 2 diabetes, HLD, HTN, CAD, HfPef, osteoporosis, arthritis, asthma, fibromyalgia, anemia, bradycardia, MDD, ANILA, who presents emergency department via EMS for evaluation of fall out of bed which occurred just prior to her arrival. On arrival, blood pressure 139/51. She is neurologically intact. Given fall out of bed, will obtain a CT head and neck to rule out any acute injury. Will also obtain basic labs, EKG. 4:47 PM 06/12/2025 (Kristi Delvalle PA-C): Labs returned, no leukocytosis, stable H&H, chemistry revealing slight hyponatremia at 1:34, chloride 95, CO2 at 33, anion gap at 11, and BUN at 24. Glucose at 545, she is currently receiving IV fluids. Will performed point of care. First troponin 8.3. Will repeat given fall. EKG nonischemic. We will continue to closely monitor. I discussed with patient's daughter at bedside to see if she has enough care at home, they would like additional resources. 5:31 PM 06/12/2025 (Kristi Delvalle PA-C): Patient remains to be hyperglycemic at 447, will medicate with insulin lispro, this was discussed with my attending physician, Dr. Martinez, will start with 10 units. Awaiting repeat troponin, x-ray. Awaiting UA. If patient is medically cleared, patient will be made a PT case management patient and reassess to see if she qualifies for any additional services. Sign-out given to my colleague, Parish Perez PA-C Differential Diagnosis Differential Diagnoses: The differential diagnosis associated with the presentation includes ICH, SDH, DKA, hyperglycemia, failure to thrive, fall, fracture, contusion Admission/Observation Consideration of admission/observation: Escalation of care including admission/observation considered Lab Data MDM Lab Attestation statement: I reviewed the patient's lab results. See MDM 06/12/25 15:35 06/12/25 15:35 Labs: Lab Results 06/12/25 06/12/25 06/12/25 Range/Units 14:19 15:35 15:41 WBC 4.9 (4.8-10.8) X10*3/uL RBC 4.51 (4.20-5.50) X10*6/uL Hgb 12.0 (12.0-16.0) g/dl Hct 37.4 (37.0-47.0) % MCV 82.9 (80.0-98.0) fL MCH 26.6 L (27.0-33.0) pg MCHC 32.1 (31.0-35.0) g/dl RDW 14.8 (11.0-16.0) % Plt Count 226 (160-400) X10*3/uL MPV 10.2 (9.4-12.3) fL Immature Gran % (Auto) 0.4 (0.0-0.4) % Neut % (Auto) 59.0 (45-73) % Lymph % (Auto) 26.3 (20-40) % [place] % (Auto) 9.0 (2-11) % Eos % (Auto) 4.3 H (0-4) % Baso % (Auto) 1.0 (0-2) % Lymph # (Auto) 1.3 (1.2-4.9) X10*3/uL [place] # (Auto) 0.4 (0.1-1.2) X10*3/uL Eos # (Auto) 0.2 (0.0-0.4) X10*3/uL Baso # (Auto) 0.1 (0.0-0.2) X10*3/uL Abs Immat Gran (auto) 0.02 (0.00-0.03) X10*3/uL Absolute Neuts (auto) 2.9 (2.0-8.3) x10*3/uL Absolute Nucleated RBC 0.000 (0.0-0.012) X10*3/uL Nucleated RBC % (auto) 0.0 (0.0-0.2) /100WBC VBG pH 7.47 H (7.32-7.43) VBG pCO2 43 mmHg VBG pO2 42 mmHg VBG HCO3 32 H (22-26) mmol/L VBG O2 Saturation 67.0 % VBG Base Excess 8.2 mmol/L Sodium 134 L (135-145) mmol/L Potassium 4.9 (3.3-5.1) mmol/L Chloride 95 L (96-108) mmol/L Carbon Dioxide 33 H (22-29) mmol/L Anion Gap 11 L (12-20) BUN 24 H (9-16) mg/dL Creatinine 1.34 (0.5-1.4) mg/dL Estim Creat Clear Calc 41.2 Estimated GFR 39 POC Glucose 537 H* (60-115) mg/dL Random Glucose 545 H* (60-115) mg/dL Calcium 9.1 D (8.4-10.2) mg/dL Total Bilirubin 0.3 (0.0-1.0) mg/dL AST 16 (5-31) U/L ALT 7 (0-31) U/L Alkaline Phosphatase 88 (39-117) U/L Ammonia 21 (13-55) umol/L Troponin I High Sens 8.3 (<3.5-17.0) ng/L Total Protein 6.8 (6.5-8.0) g/dL Albumin 3.5 (3.5-5.0) g/dL Beta-Hydroxybutyrate 0.12 (0.02-0.27) mmol/L Urine Color Urine Appearance Urine pH (5.0-9.0) Ur Specific Thorp (1.005-1.025) Urine Protein (Neg-Trace) mg/dL Urine Glucose (UA) (Negative) mg/dL Urine Ketones (Negative) mg/dL Urine Blood (Negative) Urine Nitrite (Negative) Ur Leukocyte Esterase (Negative) Urine RBC (0-2) /HPF Urine WBC (0-5) /HPF Ur Squamous Epith Cells (0-2) /HPF Urine Bacteria (None Seen) Hyaline Casts (0-2) /LPF 06/12/25 06/12/25 06/12/25 Range/Units 17:04 18:34 18:54 WBC (4.8-10.8) X10*3/uL RBC (4.20-5.50) X10*6/uL Hgb (12.0-16.0) g/dl Hct (37.0-47.0) % MCV (80.0-98.0) fL MCH (27.0-33.0) pg MCHC (31.0-35.0) g/dl RDW (11.0-16.0) % Plt Count (160-400) X10*3/uL MPV (9.4-12.3) fL Immature Gran % (Auto) (0.0-0.4) % Neut % (Auto) (45-73) % Lymph % (Auto) (20-40) % [place] % (Auto) (2-11) % Eos % (Auto) (0-4) % Baso % (Auto) (0-2) % Lymph # (Auto) (1.2-4.9) X10*3/uL [place] # (Auto) (0.1-1.2) X10*3/uL Eos # (Auto) (0.0-0.4) X10*3/uL Baso # (Auto) (0.0-0.2) X10*3/uL Abs Immat Gran (auto) (0.00-0.03) X10*3/uL Absolute Neuts (auto) (2.0-8.3) x10*3/uL Absolute Nucleated RBC (0.0-0.012) X10*3/uL Nucleated RBC % (auto) (0.0-0.2) /100WBC VBG pH (7.32-7.43) VBG pCO2 mmHg VBG pO2 mmHg VBG HCO3 (22-26) mmol/L VBG O2 Saturation % VBG Base Excess mmol/L Sodium (135-145) mmol/L Potassium (3.3-5.1) mmol/L Chloride (96-108) mmol/L Carbon Dioxide (22-29) mmol/L Anion Gap (12-20) BUN (9-16) mg/dL Creatinine (0.5-1.4) mg/dL Estim Creat Clear Calc Estimated GFR POC Glucose 476 H* 387 H* (60-115) mg/dL Random Glucose (60-115) mg/dL Calcium (8.4-10.2) mg/dL Total Bilirubin (0.0-1.0) mg/dL AST (5-31) U/L ALT (0-31) U/L Alkaline Phosphatase (39-117) U/L Ammonia (13-55) umol/L Troponin I High Sens 8.9 (<3.5-17.0) ng/L Total Protein (6.5-8.0) g/dL Albumin (3.5-5.0) g/dL Beta-Hydroxybutyrate (0.02-0.27) mmol/L Urine Color Urine Appearance Urine pH (5.0-9.0) Ur Specific Thorp (1.005-1.025) Urine Protein (Neg-Trace) mg/dL Urine Glucose (UA) (Negative) mg/dL Urine Ketones (Negative) mg/dL Urine Blood (Negative) Urine Nitrite (Negative) Ur Leukocyte Esterase (Negative) Urine RBC (0-2) /HPF Urine WBC (0-5) /HPF Ur Squamous Epith Cells (0-2) /HPF Urine Bacteria (None Seen) Hyaline Casts (0-2) /LPF 06/13/25 06/13/25 06/13/25 Range/Units 05:59 06:31 07:14 WBC (4.8-10.8) X10*3/uL RBC (4.20-5.50) X10*6/uL Hgb (12.0-16.0) g/dl Hct (37.0-47.0) % MCV (80.0-98.0) fL MCH (27.0-33.0) pg MCHC (31.0-35.0) g/dl RDW (11.0-16.0) % Plt Count (160-400) X10*3/uL MPV (9.4-12.3) fL Immature Gran % (Auto) (0.0-0.4) % Neut % (Auto) (45-73) % Lymph % (Auto) (20-40) % [place] % (Auto) (2-11) % Eos % (Auto) (0-4) % Baso % (Auto) (0-2) % Lymph # (Auto) (1.2-4.9) X10*3/uL [place] # (Auto) (0.1-1.2) X10*3/uL Eos # (Auto) (0.0-0.4) X10*3/uL Baso # (Auto) (0.0-0.2) X10*3/uL Abs Immat Gran (auto) (0.00-0.03) X10*3/uL Absolute Neuts (auto) (2.0-8.3) x10*3/uL Absolute Nucleated RBC (0.0-0.012) X10*3/uL Nucleated RBC % (auto) (0.0-0.2) /100WBC VBG pH (7.32-7.43) VBG pCO2 mmHg VBG pO2 mmHg VBG HCO3 (22-26) mmol/L VBG O2 Saturation % VBG Base Excess mmol/L Sodium (135-145) mmol/L Potassium (3.3-5.1) mmol/L Chloride (96-108) mmol/L Carbon Dioxide (22-29) mmol/L Anion Gap (12-20) BUN (9-16) mg/dL Creatinine (0.5-1.4) mg/dL Estim Creat Clear Calc Estimated GFR POC Glucose 315 H 317 H (60-115) mg/dL Random Glucose (60-115) mg/dL Calcium (8.4-10.2) mg/dL Total Bilirubin (0.0-1.0) mg/dL AST (5-31) U/L ALT (0-31) U/L Alkaline Phosphatase (39-117) U/L Ammonia (13-55) umol/L Troponin I High Sens (<3.5-17.0) ng/L Total Protein (6.5-8.0) g/dL Albumin (3.5-5.0) g/dL Beta-Hydroxybutyrate (0.02-0.27) mmol/L Urine Color Yellow Urine Appearance Clear Urine pH 5.5 (5.0-9.0) Ur Specific [place] 1.020 (1.005-1.025) Urine Protein Negative (Neg-Trace) mg/dL Urine Glucose (UA) >=1000 H (Negative) mg/dL Urine Ketones Negative (Negative) mg/dL Urine Blood Negative (Negative) Urine Nitrite Negative (Negative) Ur Leukocyte Esterase Trace H (Negative) Urine RBC 0-2 (0-2) /HPF Urine WBC 0-5 (0-5) /HPF Ur Squamous Epith Cells 0-2 (0-2) /HPF Urine Bacteria 2+ (None Seen) Hyaline Casts 0-2 (0-2) /LPF Independent Interpretation I performed an independent interpretation of an: EKG Interpretation: EKG normal sinus rhythm, no STEMI. Incomplete right bundle-branch block, reviewed with my attending physician, Dr. Martinez. Radiology Impression Discussion of test interpretation with radiology: I have reviewed the radiologist's reading. Radiologist Impression: Reason for Exam: fall, +HS on AC EXAMINATION: CT HEAD WITHOUT IV CONTRAST HISTORY: fall, +HS on AC. TECHNIQUE: Unenhanced helical CT of the head was performed per standard departmental protocol. Coronal and sagittal reformats of the head were also evaluated. One or more of the following techniques was used for dose reduction: Automated exposure control, adjustment of the mA and/or kV according to patient size, use of iterative reconstruction technique. DLP: 913 mGy-cm COMPARISON: Previous head CT June 03, 2025 FINDINGS: BRAIN: There is no evidence of an extra-axial collection. There is no evidence of intra or extra-axial hemorrhage. The ventricles and extra-axial CSF spaces are prominent suggestive of generalized atrophy. There is nonspecific periventricular white matter disease. There is an old right thalamic lacunar infarct unchanged. No mass, mass effect or acute infarct. SINUSES: The visualized paranasal sinuses are clear. The mastoid air cells and middle ear cavities are well pneumatized. ORBITS: The visualized orbits are unremarkable. BONES/SOFT TISSUES: The extracranial soft tissues are unremarkable. The calvarium is intact. No suspicious lytic or sclerotic lesions. CT/CT head/brain wo IV con IMPRESSION: No acute intracranial abnormality. Mild generalized atrophy, nonspecific periventricular white matter disease and old right thalamic lacunar infarct similar to prior exams. Electronically signed by: Trina Cyr MD 06/12/2025 03:52 PM [facility] Dictated By: Trina Cyr MD [place] [id number] CT Scan Report Signed Patient: Mary Lou Godwin MR#: [id number] : 1950 Acct:[id number] Age/Sex: 74 / F ADM Date: 06/12/25 Loc: HO.ED Attending Dr: Ordering Physician: Kristi Delvalle Date of Service: 06/12/25 Procedure(s): CT cervical spine wo IV con Accession Number(s): [id number] cc: Amanda Watkins MD; Kristi Delvalle~ Report Number: [id number]: Total DLP = 1657.07 mGy-cm Reason for Exam: fall, +HS on AC EXAMINATION: CT CERVICAL SPINE WITHOUT CONTRAST CLINICAL INFORMATION: Status post fall. Headache. COMPARISON: June 03, 2025. TECHNIQUE: Contiguous axial images through the cervical spine using 3 mm collimation with bone and soft tissue algorithm. Sagittal and coronal reformatted images acquired. This CT examination was performed using dose optimization techniques as appropriate, variously including the following: *Automated exposure control *Adjustment of mA and/or kV according to patient size (this includes techniques or standardized protocols for targeted exams where dose is matched to indication/reason for exam; i.e. extremities or head) *Use of iterative reconstruction technique. DLP: 737.15 mGy-cm FINDINGS: Craniocervical junction is intact with normal alignment between the occipital condyles and lateral masses of C1. Degenerative changes in the periodontal C1 region. Multilevel marginal osteophyte formation, endplate sclerosis, subchondral cyst formation and decreased intervertebral disc height with vacuum phenomenon at C4-5, C5-6 levels. Multilevel facet joint hypertrophy. Reverse curvature apex at C4-5 which could be positional. Normal alignment between the vertebral bodies and the facet joints. C1 is intact. C2 is intact. C3 is intact. C4 is intact. C5 is intact. C6 is intact. C3 7 is intact. No gross prevertebral soft tissue hematoma. Calcified plaques in the carotic arteries. Heterogeneous nodular prominent thyroid gland. Dystrophic calcification right thyroid lobe. Tympanic cavities and mastoid cells are aerated. Patient's large body habitus/obesity. CT/CT cervical spine wo IV con IMPRESSION: Multilevel cervical spondylosis pronounced at C4-5 and C5-6 without acute fracture or trauma-related listhesis. Heterogeneous nodular prominent thyroid gland. Fleischner guidelines were followed. Electronically signed by: Son Brennan MD 06/12/2025 03:39 PM [facility] Dictated By: Son Watson MD Signed By: <Electronically signed by Son Lazaro MD in [place]> Discharge Plan Discharge Clinical Impression: Falls, Hyperglycemia Patient Disposition: Home, Self-Care Instructions: Fall Prevention (ED), Diabetic Hyperglycemia (ED) Additional Instructions: You were evaluated in the ED today following a fall. Your workup shows elevated blood sugar. This was corrected in the ED. Your workup was otherwise unremarkable. It was recommended by physical therapy that you be discharged to a short-term rehab facility due to your frequent falls. You are declining at this time. Instead, you are being discharged home with [facility] services. Please make sure you are taking all of your home medications as you are supposed to. Return with any new/worsening symptoms. In the case of an emergency call 911. Prescriptions: No Action atorvastatin 80 mg tablet 80 mg PO BEDTIME Eliquis 5 mg Tablet 5 mg PO BID Qty: 60 0RF omeprazole 40 mg capsule,delayed release(DR/EC) 40 mg PO DAILY@0630 duloxetine 20 mg capsule,delayed release(DR/EC) 20 mg PO DAILY calcium carbonate [Oyster Shell Calcium 500] 500 mg calcium (1,250 mg) tablet 500 mg PO BID Patient Comments: Applies to legs hydroxyzine HCl 25 mg tablet 25 mg PO Q8H PRN (Reason: anxiety) oxycodone-acetaminophen [Percocet] 5-325 mg tablet 1 tab PO Q8H PRN (Reason: severe pain (scale score 7-10)) Qty: 6 0RF Rx Instructions: Partial Fill upon patient request. gabapentin 400 mg capsule 400 mg PO TID Mounjaro 7.5 mg/0.5 mL pen injector 7.5 mg subcut QWEEK torsemide 20 mg tablet 20 mg PO DAILY Qty: 30 0RF amlodipine 5 mg Tablet 5 mg PO DAILY Qty: 30 0RF Protocol: Hold for SBP< HOLD for SBP < : 90 trazodone 150 mg tablet 150 mg PO BEDTIME albuterol sulfate 2.5 mg /3 mL (0.083 %) solution for nebulization 2.5 mg inhalation Q6H PRN (Reason: Shortness Of Breath Or Wheezing) albuterol sulfate 90 mcg/actuation HFA aerosol inhaler 2 puff INHALATION QID PRN (Reason: Shortness Of Breath Or Wheezing) levothyroxine [Synthroid] 100 mcg Tablet 100 mcg PO DAILY@0600 Qty: 90 0RF aspirin 81 mg tablet,delayed release (DR/EC) 81 mg PO QAM docusate sodium 100 mg capsule 100 mg PO BID cyclobenzaprine 5 mg tablet 5 mg PO TID melatonin 5 mg tablet 5 mg PO BEDTIME insulin degludec [Tresiba FlexTouch U-200] 200 unit/mL (3 mL) insulin pen 64 unit subcut DAILY Mounjaro 5 mg/0.5 mL pen injector 5 mg SUBCUT FR acetaminophen 325 mg Tablet 650 mg PO Q6H PRN (Reason: Pain, Mild 1-3,Fever,Headache) 30 Days Qty: 240 0RF oxycodone 5 mg tablet 5 mg PO Q6H PRN (Reason: pain) 7 Days Qty: 28 0RF Rx Instructions: Partial Fill upon patient request. ferrous fumarate 324 mg (106 mg iron) tablet 324 mg PO DAILY Qty: 90 0RF Referrals: [facility] [Outside] Amanda Watkins MD [Primary Care Provider, Internal Medicine] Print Language: Zimbabwean
[2025-06-12 14:17] VITALS: BMI 45.2
[2025-06-12 14:24] LABS: Glucose, Whole Blood 537 mg/dL (60-115)
--- NOTE | 2025-06-12 14:36 | ECG_ITS ---
Test Reason : fall Blood Pressure : */* mmHG Vent. Rate : 61 BPM Atrial Rate : 61 BPM P-R Int : 190 ms QRS Dur : 98 ms QT Int : 438 ms P-R-T Axes : 35 -26 23 degrees QTcB Int : 440 ms Normal sinus rhythm Incomplete right bundle branch block Borderline ECG When compared with ECG of 03-Jun-2025 09:56, No significant change was found Referred By: Kristi Delvalle Electronically Signed By: Asif Zhao
--- NOTE | 2025-06-12 15:12 | PC.NURSE ---
Patient known to be difficult to IV stick, multiple attempts made. Will attempt again after CT scan. Family member states patient is not med compliant and not compliant with diet regime. Family also requesting PT/CM.
[2025-06-12 15:40] LABS: MANUAL DIFF FLAG NO
[2025-06-12 15:42] LABS: Hematocrit 37.4 % (37.0-47.0); Hemoglobin 12.0 g/dl (12.0-16.0); Imm Gran Abs Auto 0.02 X10*3/uL (0.00-0.03); Imm Gran Pct Auto 0.4 % (0.0-0.4); Lymphocytes Absolute Auto 1.3 X10*3/uL (1.2-4.9); Mean Corpuscular HGB Conc 32.1 g/dl (31.0-35.0); Mean Corpuscular Hemoglobin 26.6 pg (27.0-33.0); Mean Corpuscular Volume 82.9 fL (80.0-98.0); NRBC Abs Auto 0.000 X10*3/uL (0.0-0.012); NRBC Pct Auto 0.0 /100WBC (0.0-0.2); Platelet Count 226 X10*3/uL (160-400); Red Blood Count 4.51 X10*6/uL (4.20-5.50); White Blood Count 4.9 X10*3/uL (4.8-10.8)
[2025-06-12 15:44] LABS: VBG HCO3 32 mmol/L (22-26); VBG O2 % Saturation 67.0 %
[2025-06-12 15:44] LABS: Venous Blood Gas Refer to POC result
[2025-06-12 15:50] LABS: Ammonia 21 umol/L (13-55)
[2025-06-12 16:03] LABS: Alanine Aminotransferase 7 U/L (0-31); Albumin Level 3.5 g/dL (3.5-5.0); Alkaline Phosphatase 88 U/L (39-117); Anion Gap 11 (12-20); Aspartate Amino Transferase 16 U/L (5-31); Blood Urea Nitrogen 24 mg/dL (9-16); Calcium 9.1 mg/dL (8.4-10.2); Carbon Dioxide 33 mmol/L (22-29); Chloride 95 mmol/L (96-108); Creatinine Clr Calc Pharmacy 41.2; Estimated Glomerular Filt Rate 39; Potassium 4.9 mmol/L (3.3-5.1); Sodium 134 mmol/L (135-145); Total Protein 6.8 g/dL (6.5-8.0)
[2025-06-12 16:06] LABS: Troponin-I High Sensitivity 8.3 ng/L (<3.5-17.0)
[2025-06-12 17:08] VITALS: BP 133/57; PULSE 62; RESP 18; TEMP 36.8; O2SAT 97
[2025-06-12 17:08] LABS: Glucose, Whole Blood 476 mg/dL (60-115)
--- OUTSIDE RECORDS SUMMARY | 2025-06-12 17:40 | XMS_ITS | Encounter Summary ---
Author Organization [employer] Address [address] [facility] [address] [place] [address] Care Team Providers Care Sculpture Instructor Name Role Phone Amanda Watkins MD Primary Care Provide r Hiro Ram MARINE INSURANCE CLAIM EXAMINER Unavailable Unavailable Raad Arias PharmD Unavailable [phone] Reason for Visit * Reason Onset Date Comments Med Refill 01/16/2025 Encounter Details Date Type Department Care Team ([facility] st Contact Info) Description 01/16/2025 Telephone [facility] [address] [place] [address] Amanda Watkins MD [address] [place] [address] Med Refill Social History Tobacco Use Types [...] 10:59 AM EDT Medication was sent to [facility] on 12/28/24 #30 with 2 refills. * Telephone Encounter - Radha Stevenson - 01/16/2025 10:54 AM EDT TC from pt requesting medication refill. Medications needing refill : levothyroxine (Synthroid, Levoxyl) 75 MCG tablet To be sent to: [facility] pharmacy documented in this encounter Plan of Treatment Upcoming Encounters Date Type Department Care Team (Late st Contact Info) Description 07/09/2025 3:30 PM EST Office Visit [facility] [address] [place] [phone] Amanda Watkins MD [address] [place] [address] 09/21/2025 10:00 AM EST Telemedicine [facility] [address] [place] [address] Kayley Alanis, PHILLIP documented as of this encounter Visit Diagnoses Not on filedocumented in this encounter Additional Health Concerns Assessment Noted Time PHQ-9 Depression Total Score: 0 09/01/19 1:18 PM EST documented as of this encounter Care Teams Sculpture Instructor Relationship Specialty Start Date End Date Amanda Waktins MD [address] [place] [phone] PCP - General Family Medicine 04/07/19 Hiro Ram FNP [address] [place] [address] Nurse Practitioner Family Medicine 07/06/23 Raad Arias, TheaD [address] [place] [address] Pharmacist Internal Medicine 10/19/24 Ja [facility] 08/10/24 03/12/25 [facility] 03/08/25 documented as of this encounter
--- OUTSIDE RECORDS SUMMARY | 2025-06-12 17:40 | XMS_ITS | Encounter Summary ---
Author Organization [employer] Address [address] [facility] 7t [place] [address] Care Team Providers Care Manager Medical Name Role Phone Amanda Watkins MD Primary Care Provide r Hiro Ram DICE MAKER Unavailable Unavailable Raad Arias PharmD Unavailable [phone] Reason for Visit * Reason Onset Date Comments Durable Medical Equipment 01/09/2025 Encounter Details Date Type Department Care Team (Late st Contact Info) Description 01/09/2025 Telephone [facility] [address] [place] [address] Amanda Watkins MD [address] [place] [address] Durable Medical Equipment Social History Tobacco Use [...] PM EST Office Visit [facility] [address] [place] [address] [phone] Amanda Watkins MD [address] [place] [address] 09/21/2025 10:00 AM EST Telemedicine [facility] [address] [place] [phone] Kayley Alanis, RN documented as of this encounter Visit Diagnoses Not on filedocumented in this encounter Additional Health Concerns Assessment Noted Time PHQ-9 Depression Total Score: 0 09/01/19 1:18 PM EST documented as of this encounter Care Teams Manager Medical Relationship Specialty Start Date End Date Amanda Watkins MD [address] [place] [address] PCP - General Family Medicine 04/07/19 Hiro Ram FNP [address] [place] [address] Nurse Practitioner Family Medicine 07/06/23 Raad Arias, TheaD [address] [place] [phone] Pharmacist Internal Medicine 10/19/24 [facility] 08[facility]24 03/12/25 [facility] 03/08/25 documented as of this encounter
--- OUTSIDE RECORDS SUMMARY | 2025-06-12 17:40 | XMS_ITS | Encounter Summary ---
Author Organization [employer] Address [address] [facility] 7t [place] [address] Care Team Providers Care Ob Scrub Tech Name Role Phone Amanda Watkins MD Primary Care Provide r iHro Ram STRAW HAT PLUNGER OPERATOR Unavailable Unavailable Raad Arias PharmD Unavailable [phone] Reason for Referral * Medications - Closed Specialty Diagnoses / Procedures Referred By Contlinda t Referred To Contact Diagnoses Chronic bilateral low back pain with bilateral sciatica Amanda Watkins MD [address] [place] [phone] Phone: tel: fax: Referral ID Status Reason Start Date Expiration Date Visits Re quested Visits Authorized [id number] Closed 1 1 Reason for Visit * Reason Onset Date Comments Med Refill 06/08/2025 Encounter Details Date Type Department Care Team (Late st Contact Info) Description 06/08/2025 Refill [facility] [address] [place] [phone] Kayley Alanis RN Chronic bilateral low back [...] Description 07/09/2025 3:30 PM EST Office Visit [facility] [address] [place] [phone] Amanda Watkins MD [address] [place] [phone] 09/21/2025 10:00 AM EST Telemedicine [facility] [address] [place] [phone] Kayley Alanis RN documented as of this encounter Visit Diagnoses Diagnosis Chronic bilateral low back pain with bilateral sciatica documented in this encounter Additional Health Concerns Assessment Noted Time PHQ-9 Depression Total Score: 14 025 2:41 PM EDT documented as of this encounter Care Teams Ob Scrub Tech Relationship Specialty Start Date End Date Amanda Watkins MD [address] [place] [phone] PCP - General Family Medicine 04/07/19 Hiro Ram FNP [address] [place] [address] Nurse Practitioner Family Medicine 07/06/23 Raad Arias, TheaD [address] [place] [address] Pharmacist Internal Medicine 10/19/24 [facility] 03/08/25 documented as of this encounter
--- OUTSIDE RECORDS SUMMARY | 2025-06-12 17:40 | XMS_ITS | Encounter Summary ---
Author Organization [employer] Address [address] [facility] 7t [place] [address] Care Team Providers Care Clinical Psychologist Name Role Phone Amanda Watkins MD Primary Care Provide r Hiro Ram SCRAP KETTLE TENDER Unavailable Unavailable Raad Arias PharmD Unavailable [phone] Reason for Visit * Reason Comments Med Refill Encounter Details Date Type Department Care Team (Late st Contact Info) Description 05/28/2025 Refill [facility] [address] [place] [address] Amanda Watkins MD [address] [place], [place] [phone] Chronic bilateral low back pain with bilateral [...] Description 07/09/2025 3:30 PM EST Office Visit [facility] [address] [place] [phone] Amanda Watkins MD [address] [place] [phone] 09/21/2025 10:00 AM EST Telemedicine [facility] [address] [place] [phone] Kayley Alanis RN documented as of this encounter Visit Diagnoses Diagnosis Chronic bilateral low back pain with bilateral sciatica documented in this encounter Additional Health Concerns Assessment Noted Time PHQ-9 Depression Total Score: 14 025 2:41 PM EDT documented as of this encounter Care Teams Clinical Psychologist Relationship Specialty Start Date End Date Amanda Watkins MD [address] [place] [address] PCP - General Family Medicine 04/07/19 Hiro Ram FNP [address] [place] [address] Nurse Practitioner Family Medicine 07/06/23 Raad Arisa, PharmD [address] [place] [address] Pharmacist Internal Medicine 10/19/24 [facility] 03/08/25 documented as of this encounter
--- OUTSIDE RECORDS SUMMARY | 2025-06-12 17:40 | XMS_ITS | Patient Health Record ---
Author Organization [facility] Address [address] [facility] [address] [place] [phone] Care Team Providers Care Police Shift Commander Name Role Phone Amanda Adame M.D. Primary Care Provider João Woodward Jr Results Component Value Reference Range Notes Pathology Reviewed date:03/21/2025 08:46:31 AM Interpretation: Performing Lab:[facility], [address] [place] [phone] Notes/Report: Reason For Referral No Information Problems Problem Type SNOMED Code ICD Code Onset Dates Problem Status W/U Status Risk Notes Problem Iron deficiency anemia (74083668) Iron deficiency anemia (D50.9) Active confirmed Problem Gastritis (1646870) Gastritis (K29.70) Active confirmed Encounters Encounter Location Date Provider Diagnosis [facility] Inpatient [address] [place] [phone] 03/06/2025 João Leon Jr [facility] [address] [place] [phone] 03/21/2025 João Leon Jr Plan Of Treatment Next Appt Details Provider Name:João yañez Jr, 07/26/2025 02:15:00 PM, [address] [facility], [address], [place], [phone], Insurance Providers Payer Name Payer Address Payer Phone Subscriber Number Group Number Insured Name Patient Relationship to Insured Coverage Start Date Coverage End Date [facility] [address] Attn Claims CARLOS Varma [id number] JP MORGAN Self - patient is the insured
--- OUTSIDE RECORDS SUMMARY | 2025-06-12 17:40 | XMS_ITS | Clinical Summary ---
Author Organization [employer] Address [address] [facility] [address] [place] [address] Care Team Providers Care Scrap Charger Name Role Phone Amanda Watkins MD Primary Care Provide r Hiro Ram MANAGER NUCLEAR Unavailable Unavailable Raad Arias PharmD Unavailable [phone] Allergies Active Allergy Reactions Criticality Noted Date [...] 2024 Active Blood Glucose Monitoring Suppl (FreeStyle Sterling Lite) w/Device kitIndications:Ty pe 2 diabetes mellitus [...] hyperglycemia, with long-term current use of insulin ([facility]) Inject 64 units under the skin daily 18 mL 5 Active pen needle 32G x 4 mm miscIndications:T ype 2 diabetes mellitus with hyperglycemia, with long-term current use of insulin ([facility]) Use daily with insulin 100 each 3 025 2025 Active traZODone (Desyrel) 150 MG tabletIndications :Recurrent major depressive episodes, mild (CMS/HCC) Take 1 tablet (150 mg) by mouth at bedtime. 90 tablet 2 025 Active TRUEplus Lancets 33G miscIndications:T ype 2 diabetes mellitus with hyperglycemia, with long-term current use of insulin ([facility]) USE DIRECTED TO TEST BLOOD [...] Once per day. 025 Active Continuous Glucose Watch And Clock Repair Clerk (FreeStyle Mickey 3 [place]) deviceIndications :Type 2 diabetes mellitus with diabetic autonomic neuropathy, with long-term current use of insulin ([facility]) 1 each Once per day. Use as directed for CGM 1 each 025 Active Continuous Glucose Sensor (FreeStyle Mickey 3 Plus Sensor) miscIndications:T ype 2 diabetes mellitus with diabetic autonomic neuropathy, with long-term current use of insulin ([facility]) 1 each every 15 days. [...] MORNING 30 tablet 3 025 2024 Discontinued docusate sodium (Colace) 100 MG capsuleIndication s:Slow transit constipation Take 1 capsule (100 mg) by mouth 2 times daily. 60 capsule 1 025 2024 Discontinued DULoxetine (Cymbalta) [address] capsule Take 1 capsule (20 mg) by mouth in the morning. 30 capsule 025 2024 Discontinued oxyCODONE-acetami nophen (Percocet) 5-325 MG tabletIndications :Chronic bilateral low back pain with bilateral sciatica Take 1 tablet by mouth every 6 (six) hours if needed for severe pain for up to 5 days. 15 tablet 025 2024 Discontinued(R eorder (will not [...] Assessment & Plan (09/14/2024 6:46 PM EST): Biochemist referral done today I advised not to [...] for patient Stage 3b chronic kidney disease ([facility]) 2023 Arthritis 04/24/2024 Bronchitis 04/24/2024 Obesity 04/24/2024 Atrial fibrillation ([facility]) 04/08/2024 Assessment & Plan (02/15/2025 [...] (12/06/2023 2:13 PM EDT): I will follow [facility] instructions and I will change her percocet [...] medications every day I advised low-sodium diet Biochemist referral done today I advised to monitor [...] retiring, patient will be transferred to new [facility] psychiatric provider. Patient is aware that appointments will be via televisit. Any issues or concerns contact [facility]. All her questions were answered and [...] advise low-sodium diet I advised weight reduction Biochemist referral done Assessment & Plan (12/06/2023 2:12 [...] and excersise -patient will be refer to hat liner - Continue current medications, I can not [...] organization. Date Type Department Care Team Description 06/12/2025 Orders Only GENERIC EXTERNAL DATA DEPARTMENT Provider, Generic External Data 06/11/2025 Orders Only GENERIC EXTERNAL DATA DEPARTMENT Provider, Generic External Data 06/08/2025 2:00 PM EDT Telemedicine [facility] [address] [place] [phone] Kayley Alanis, RN Long-term current use of opiate analgesic 06/08/[address] [address] Kayley Alanis, supervisor marble bilateral low back pain with bilateral sciatica 06/08/2025 Travel 06/05/[address] [address] Amanda Watkins MD Call Back Request 06/04/2025 Patient Outreach [facility] [address] [place] [address] Amanda Watkins MD 06/03/2025 Orders Only GENERIC EXTERNAL DATA DEPARTMENT Provider, Generic External Data 05/31/[address] [address] Kayley Alanis, PHILLIP Schedule Tele FINANCIAL MANAGEMENT ANALYST RV 05/30/2025 Orders Only GENERIC EXTERNAL DATA DEPARTMENT Provider, Generic External Data 05/29/2025 Orders Only GENERIC EXTERNAL DATA DEPARTMENT Provider, Generic External Data 05/29/[address] [address] Amanda Watkins MD Med Refill 05/28/[address] [address] Amanda Watkins MD Chronic bilateral low back pain with bilateral sciatica 05/25/2025 Refill [facility] [address] [place] [phone] Amanda Watkins MD Chronic bilateral low back pain with bilateral sciatica (Primary Dx) 05/24/2025 Refill [facility] [address] [place] [address] Amanda Watkins MD 05/16/2025 Refill [facility] [address] [place] [address] Amanda Watkins MD Type 2 diabetes mellitus with diabetic autonomic neuropathy, with long-term current use of insulin ([facility]); Slow transit constipation 05/08/2025 10:15 AM EDT Office Visit [facility] [address] [place] [address] Amanda Watkins MD Fibromyalgia (Primary Dx); Degenerative arthritis of thumb, right; Chronic pain of both shoulders; Type 2 diabetes mellitus with hyperglycemia, with long-term current use of insulin ([facility]) 05/08/2025 Travel 05/07/2025 Telephone [facility] [address] [place] [phone] Amanda Watkins MD 05/07/2025 Telephone [facility] [address] [place] [phone] Amanda Watkins MD Chart Prep 05/07/2025 Refill [facility] [address] [place] [phone] Amanda Watkins MD 05/04/2025 Telephone [facility] [address] [place] [phone] Amanda Watkins MD Medication Question 04/30/2025 Telephone [facility] [address] [place] [phone] Amanda Watkins MD Appointment Request 04/23/2025 Patient Outreach [facility] [address] [place] [address] Amanda Watkins MD Pre-visit Planning (HDF scheduled. ) 04/23/2025 Refill [facility] [address] [place] [phone] Amanda Watkins MD 04/19/2025 Telephone [facility] [address] [place] [address] Amanda Watkins MD 04/17/2025 Orders Only GENERIC EXTERNAL DATA DEPARTMENT Provider, Generic External Data 04/17/2025 Telephone [facility] [address] [place] [address] Amanda Watkins MD Nurse Triage 04/16/2025 Travel 04/13/2025 Refill [facility] [address] [place] [address] Kayley Alanis RN Chronic bilateral low back pain with bilateral sciatica (Primary Dx) 04/11/2025 Refill [facility] [address] [place] [address] Amanda Watkins MD Type 2 diabetes mellitus with hyperglycemia ([facility]) 04/08/2025 Refill [facility] [address] [place] [address] Amanda Watkins MD 04/02/2025 Refill [facility] [address] [place] [address] Amanda Watkins MD Chronic bilateral low back pain with bilateral sciatica 03/29/2025 2:00 PM EDT Office Visit [facility] [address] [place] [phone] Amanda Watkins MD Seborrheic dermatitis (Primary Dx); Type 2 diabetes mellitus with diabetic autonomic neuropathy, with long-term current use of insulin ([facility]); Anemia, unspecified type; Chronic gastritis, presence of bleeding unspecified, unspecified gastritis type; Primary osteoarthritis, right shoulder; Slow transit constipation; Primary insomnia; Cellulitis of right lower extremity 03/29/2025 Travel 03/28/2025 Refill [facility] [address] [place] [address] Sia Leon, PharmD 03/27/2025 Telephone [facility] [address] [place], [place] [phone] Amanda Watkins MD Chart Prep 03/20/2025 Orders Only [facility] [address] [place] [address] Amanda Watkins MD Type 2 diabetes mellitus with diabetic autonomic neuropathy, with long-term current use of insulin ([facility]) (Primary Dx) 03/20/[address] [address] Lynne Lazaro, SUPERINTENDENT DRIVERS Follow-up 03/20/[address] [phone] Amanda Watkins MD Referral 03/20/[address] [phone] Amanda Watkins MD Nurse Triage 03/16/[address] [phone] Amanda Watkins MD 03/14/[address] [phone] Amanda Watkins MD FYI from Last 3 Months Immunizations Immunization Administration [...] Description 07/09/2025 3:30 PM EST Office Visit [facility] [address] [place] [phone] Amanda Watkins MD [address] [place] [address] 09/21/2025 10:00 AM EST Telemedicine [facility] [address] [place] [address] Kayley Alanis, RN Health Maintenance Due Date [...] Associated Diagnosis Comments GLUCOSE, WHOLE BLOOD Routine 06/12/2025 5:04 PM EST VENOUS BLOOD GAS Routine 06/12/2025 3:41 PM EST BETA-HYDROXYBUTYRATE Routine 06/12/2025 3:35 PM EST HIGH SENSITIVITY TROPONIN I Routine 06/12/2025 3:35 PM EST COMPREHENSIVE METABOLIC PANEL Routine 06/12/2025 3:35 PM EST AMMONIA (P) Routine 06/12/2025 3:35 PM EST CBC WITH AUTO DIFFERENTIAL Routine 06/12/2025 3:[address] HEAD WO CONTRAST Routine 06/12/2025 3 :[address] CERVICAL SPINE WO CONTRAST Routine 06/12/2025 3:13 PM EST GLUCOSE, WHOLE BLOOD Routine 06/12/2025 2:19 PM EST GLUCOSE, WHOLE BLOOD Routine 06/11/2025 4:14 PM EST URINALYSIS, COMPLETE, WITH REFLEX TO CULTURE Routine 06/11/2025 6:59 AM EST GLUCOSE, WHOLE BLOOD Routine 06/11/2025 6:37 AM EST GLUCOSE, WHOLE BLOOD Routine 06/11/2025 4:13 AM EST VENOUS BLOOD GAS Routine 06/11/2025 3:00 AM [...] hyperglycemia, with long-term current use of insulin ([facility]) POCT GLUCOSE Routine 05/08/2025 10:52 AM EDT Type 2 diabetes mellitus with hyperglycemia, with long-term current use of insulin ([facility]) CT SHOULDER WO CONTRAST RIGHT Routine 04/17/2025 9:23 PM EDT LACTIC ACID Routine 04/17/2025 10:07 AM EDT POCT GLYCATED HEMOGLOBIN, TOTAL Routine 03/29/2025 2:06 PM EDT Type 2 diabetes mellitus with diabetic autonomic neuropathy, with long-term current use of insulin ([facility]) POCT GLUCOSE Routine 03/29/2025 2:04 PM EDT Type 2 diabetes mellitus with diabetic autonomic neuropathy, with long-term current use of insulin ([facility]) LIPID PANEL, STANDARD Routine 09/01/2024 2:09 PM EST ALBUMIN, RANDOM URINE W/CREATININE Routine 08/04/2021 10:15 AM EST from Last 3 Months or Most Recently Relevant to Health Maintenance Results * (ABNORMAL) Glucose, Whole Blood (06/12/2025 5:04 PM EST) Only the most recent of10 resultswithin the time period is included. Glucose, Whole Blood 476(HH) 60 - 115 mg/dL [facility] Comment:METER #: [id number] 06/12/2025 5:04 PM EST 06/12/2025 5:07 PM EST us Generic External Data Provider LAB BLOOD ORDERAB LES Final Result [facility] [address] [place] [phone] * (ABNORMAL) VENOUS BLOOD GAS (06/12/2025 3:41 PM EST) Only the most recent of3 resultswithin the time period is included. Pathologist [facility] VBG pH 7.47(H) 7.32 - 7.43 [facility] Comment:METER #: [id number] additional_comment: Huseyin mancini VBG PCO2 43 mmHg [facility] Comment:METER #: [id number] additional_comment: Huseyin mancini VBG PO2 42 mmHg [facility] Comment:METER #: [id number] additional_comment: Huseyin mancini VBG Base Excess 8.2 mmol/L [facility] Comment:METER #: [id number] additional_comment: Huseyin ELG HCO3 32(H) 22 - 26 mmol/L [facility] Comment:METER #: [id number] additional_comment: Huseyin mancini O2 Sat, Samuel 67.0 % [facility] Comment:METER #: [id number] additional_comment: Huseyin mancini 06/12/2025 3:41 PM EST 06/12/2025 3:44 PM EST us Generic External Data Provider LAB BLOOD ORDERAB LES Final Result Performing Organization Address [facility] de Phone Number [facility] [address] [place] [phone] * High Sensitivity Troponin I (06/12/2025 3:35 PM EST) Only the most recent of2 resultswithin the time period is included. TROPONIN I HIGH SENSITIVITY 8.3 <3.5 - 17.0 ng/L [facility] Comment:The Augustin high sens itivity Troponin-I results should beused in conjunction with other diagnostic information suchas ECG, clinical observations and information, and patientsymptoms to aid in the diagnosis of RI. 06/12/2025 3:35 PM EST 06/12/2025 3:39 PM EST us Generic External Data Provider LAB BLOOD ORDERAB LES Final Result Performing Organization Address [facility] de Phone Number [facility] [address] [place] [phone] * Beta-Hydroxybutyrate (06/12/2025 3:35 PM EST) Only the most recent of2 resultswithin the time period is included. Beta-Hydroxybut yrate 0.12 0.02 - 0.27 mmol/L [facility] 06/12/2025 3:35 PM EST 06/12/2025 3:39 PM EST us Generic External Data Provider LAB BLOOD ORDERAB LES Final Result Performing Organization Address [facility] Co de Phone Number [facility] [address] [place] [address] [phone] * (ABNORMAL) CBC auto differential (06/12/2025 3:35 PM EST) Only the most recent of2 resultswithin the time period is included. White Blood Count 4.9 4.8 - 10.8 X10*3/uL [facility] Red Blood Count 4.51 4.20 - 5.50 X10*6/uL [facility] Hemoglobin 12.0 12.0 - 16.0 g/dl [facility] Hematocrit 37.4 37.0 - 47.0 % [facility] Mean Corpuscular Volume 82.9 80.0 - 98.0 fL [facility] Mean Corpuscular Hemoglobin 26.6(L) 27.0 - 33.0 pg [facility] Mean Corpuscular HGB Conc 32.1 31.0 - 35.0 g/dl [facility] Red Cell Distribution Width 14.8 11.0 - 16.0 % [facility] Platelet Count 226 160 - 400 X10*3/uL [facility] Mean Platelet Volume 10.2 9.4 - 12.3 fL [facility] Neutrophils Percent Auto 59.0 45 - 73 % [facility] Imm Gran Pct Auto 0.4 0.0 - 0.4 % [facility] Lymphocytes Percent Auto 26.3 20 - 40 % [facility] Monocytes Percent Auto 9.0 2 - 11 % [facility] Eosinophils Percent Auto 4.3(H) 0 - 4 % [facility] Basophils Percent Auto 1.0 0 - 2 % [facility] NRBC Pct Auto 0.0 0.0 - 0.2 /100WBC [facility] Neutrophils Absolute Auto 2.9 2.0 - 8.3 x10*3/uL [facility] Imm Gran Abs Auto 0.02 0.00 - 0.03 X10*3/uL [facility] Lymphocytes Absolute Auto 1.3 1.2 - 4.9 X10*3/uL [facility] Monocytes Absolute Auto 0.4 0.1 - 1.2 X10*3/uL [facility] Eosinophils Absolute Auto 0.2 0.0 - 0.4 X10*3/uL [facility] Basophils Absolute Auto 0.1 0.0 - 0.2 X10*3/uL [facility] NRBC Abs Auto 0.000 0.0 - 0.012 X10*3/uL [facility] 06/12/2025 3:35 PM EST 06/12/2025 3:39 PM EST Generic External Data Provider LAB BLOOD ORDERAB LES Final Result Performing Organization Address City/[facility]/ZIP Co de Phone Number [facility] [address] [place] [phone] * Ammonia, Plasma (06/12/2025 3:35 PM EST) Pathologist [facility] Ammonia (P) 21 13 - 55 umol/L [facility] 06/12/2025 3:35 PM EST 06/12/2025 3:39 PM EST Sophie [employer] Juliet External Data Provider LAB BLOOD ORDERAB LES Final Result Performing Organization Address City/[facility] Co de Phone Number [facility] [address] [place] [phone] * (ABNORMAL) Comprehensive Metabolic Panel (06/12/2025 3:35 PM EST) Only the most recent of2 resultswithin the time period is included. Pathologist [facility] [place] Sodium 134(L) 135 - 145 mmol/L [facility] Potassium 4.9 3.3 - 5.1 mmol/L [facility] Chloride 95(L) 96 - 108 mmol/L [facility] Carbon Dioxide 33(H) 22 - 29 mmol/L [facility] Anion Gap 11(L) 12 - 20 [facility] Urea Nitrogen (BUN) 24(H) 9 - 16 mg/dL [facility] Creatinine, Serum 1.34 0.5 - 1.4 mg/dL [facility] Creatinine Clr Calc Pharmacy 41.2 [facility] Comment:Provided height and weight: 154.94 cm,108.6 kg.eGFR (calculated from the MDRD study equation) and eCrCl(calculated from the Cockcroft-Gault equation) are based ondifferent parameters and may not yield comparable results.If eCrCl result is absurd, please check patient'sheight/weight. Estimated Glomerular Filt Rate 39 [facility] Comment:Chronic Kidney Disea se: Estimated GFR < 60 mL/min/1.61i3Jcfuyg Kidney Disease: Estimated GFR < 15 mL/min/1.73m2 Glucose 545(HH) 60 - 115 mg/dL [facility] Comment:Critical value for t est(s): GLUR Results called to and readback by: KEISHA Person calling:ALKASAB Date:06/12/25Time:16:02 Calcium 9.1 8.4 - 10.2 mg/dL [facility] Bilirubin, Total 0.3 0.0 - 1.0 mg/dL [facility] Aspartate Amino Transferase 16 5 - 31 U/L [facility] Alanine Aminotransferase 7 0 - 31 U/L [facility] Total Protein 6.8 6.5 - 8.0 g/dL [facility] Albumin Level 3.5 3.5 - 5.0 g/dL [facility] Alkaline Phosphatase 88 39 - 117 U/L [facility] 06/12/2025 3:35 PM EST 06/12/2025 3:39 PM EST us Generic External Data Provider LAB BLOOD ORDERAB LES Final Result [facility] [address] [place] [phone] [phone] * CT Cervical Spine w/o Contrast (06/12/2025 3:13 PM EST) Only the most recent of2 resultswithin the time period is included. Anatomical Region Laterality Modality Spine, C-spine Computed Tomogra phy 06/12/2025 3:13 PM EST Narrative 06/12/2025 3:42 PM EST [address] [address] [address] Scan Report Signed Patient: Mary Lou Godwin MR#: [id number] : 1950 Acct:[id number] Age/Sex: 74 / F ADM Date: 06/12/25 Loc: HO.ED Attending Dr: Ordering Physician: Kristi Delvalle Date of Service: 06/12/25 Procedure(s): CT cervical spine wo IV con Accession Number(s): [id number] cc: Amanda Watkins MD; Kristi Delvalle Report Number: [id number]: Total DLP = 1657.07 mGy-cm Reason for Exam: fall, +HS on AC EXAMINATION: CT CERVICAL SPINE WITHOUT CONTRAST CLINICAL INFORMATION: Status post fall. Headache. COMPARISON: June 03, 2025. TECHNIQUE: Contiguous axial images through the cervical spine using 3 mm collimation with bone and soft tissue algorithm. Sagittal and coronal reformatted images acquired. This CT examination was performed using dose optimization techniques as appropriate, variously including the following: *Automated exposure control *Adjustment of mA and/or kV according to patient size (this includes techniques or standardized protocols for targeted exams where dose is matched to indication/reason for exam; i.e. extremities or head) *Use of iterative reconstruction technique. DLP: 737.15 mGy-cm FINDINGS: Craniocervical junction is intact with normal alignment between the occipital condyles and lateral masses of C1. Degenerative changes in the periodontal C1 region. Multilevel marginal osteophyte formation, endplate sclerosis, subchondral cyst formation and decreased intervertebral disc height with vacuum phenomenon at C4-5, C5-6 levels. Multilevel facet joint hypertrophy. Reverse curvature apex at C4-5 which could be positional. Normal alignment between the vertebral bodies and the facet joints. C1 is intact. C2 is intact. C3 is intact. C4 is intact. C5 is intact. C6 is intact. C3 7 is intact. No gross prevertebral soft tissue hematoma. Calcified plaques in the carotic arteries. Heterogeneous nodular prominent thyroid gland. Dystrophic calcification right thyroid lobe. Tympanic cavities and mastoid cells are aerated. Patient's large body habitus/obesity. CT/CT cervical spine wo IV con IMPRESSION: Multilevel cervical spondylosis pronounced at C4-5 and C5-6 without acute fracture or trauma-related listhesis. Heterogeneous nodular prominent thyroid gland. Fleischner guidelines were followed. Electronically signed by: Son Brennan MD 06/12/2025 03:39 PM EST Dictated By: Son Watson MD Signed By: <Electronically signed by Son Lazaro MD in OV> 06/12/25 1539 DD/ 1513 TD/TT: 06/12/25 1530 Tie In Hand: Procedure Note Donotuseinterpreter, Image - 06/12/[address] [place] [address] [address] Scan Report Signed Patient: Mary Lou Godwin ZMR#: [id number] : 1950cct:[id number] Age/Sex: 74 / FADM Date: 06/12/25 Loc: HO.ED Attending Dr: Ordering Physician: Kristi Delvalle Date of Service: 06/12/25 Procedure(s): CT cervical spine wo IV con Accession Number(s): [id number] cc: Amanda Watkins MD; Kristi Delvalle Report Number: [id number]: Total DLP = 1657.07 mGy-cm Reason for Exam: fall, +HS on AC EXAMINATION: CT CERVICAL SPINE WITHOUT CONTRAST CLINICAL INFORMATION: Status post fall. Headache. COMPARISON: June 03, 2025. TECHNIQUE: Contiguous axial images through the cervical spine using 3 mm collimation with bone and soft tissue algorithm. Sagittal and coronal reformatted images acquired. This CT examination was performed using dose optimization techniques as appropriate, variously including the following: *Automated exposure control *Adjustment of mA and/or kV according to patient size (this includes techniques or standardized protocols for targeted exams where dose is matched to indication/reason for exam; i.e. extremities or head) *Use of iterative reconstruction technique. DLP: 737.15 mGy-cm FINDINGS: Craniocervical junction is intact with normal alignment between the occipital condyles and lateral masses of C1. Degenerative changes in the periodontal C1 region. Multilevel marginal osteophyte formation, endplate sclerosis, subchondral cyst formation and decreased intervertebral disc height with vacuum phenomenon at C4-5, C5-6 levels. Multilevel facet joint hypertrophy. Reverse curvature apex at C4-5 which could be positional. Normal alignment between the vertebral bodies and the facet joints. C1 is intact. C2 is intact. C3 is intact. C4 is intact. C5 is intact. C6 is intact. C3 7 is intact. No gross prevertebral soft tissue hematoma. Calcified plaques in the carotic arteries. Heterogeneous nodular prominent thyroid gland. Dystrophic calcification right thyroid lobe. Tympanic cavities and mastoid cells are aerated. Patient's large body habitus/obesity. CT/CT cervical spine wo IV con IMPRESSION: Multilevel cervical spondylosis pronounced at C4-5 and C5-6 without acute fracture or trauma-related listhesis. Heterogeneous nodular prominent thyroid gland. Fleischner guidelines were followed. Electronically signed by: Son Brennan MD 06/12/2025 03:39 PM EST Dictated By: Son Watson MD Signed By: <Electronically signed by Son Lazaro MDin OV> 06/12/25 1539 DD/ 1513 TD/TT: 06/12/25 1530 Tie In Hand: [employer] External Provider IMG CT PROCEDURES Final Result * CT Head w/o Contrast (06/12/2025 3:13 PM EST) Only the most recent of2 resultswithin the time period is included. Anatomical Region Laterality Modality Head, Neck Computed Tomogra phy 06/12/2025 3:13 PM EST Narrative 06/12/2025 3:56 PM EST [address] [address] [address] Scan Report Signed Patient: Mary Lou Godwin MR#: M [id number] : 1950 Acct:[id number] Age/Sex: 74 / F ADM Date: 06/12/25 Loc: HO.ED Attending Dr: Ordering Physician: Kristi Delvalle Date of Service: 06/12/25 Procedure(s): CT head/brain wo IV con Accession Number(s): [id number] cc: Amanda Watkins MD; Kristi Delvalle Report Number: [id number]: Total DLP = 0.00 mGy-cm Reason for Exam: fall, +HS on AC EXAMINATION: CT HEAD WITHOUT IV CONTRAST HISTORY: fall, +HS on AC. TECHNIQUE: Unenhanced helical CT of the head was performed per standard departmental protocol. Coronal and sagittal reformats of the head were also evaluated. One or more of the following techniques was used for dose reduction: Automated exposure control, adjustment of the mA and/or kV according to patient size, use of iterative reconstruction technique. DLP: 913 mGy-cm COMPARISON: Previous head CT June 03, 2025 FINDINGS: BRAIN: There is no evidence of an extra-axial collection. There is no evidence of intra or extra-axial hemorrhage. The ventricles and extra-axial CSF spaces are prominent suggestive of generalized atrophy. There is nonspecific periventricular white matter disease. There is an old right thalamic lacunar infarct unchanged. No mass, mass effect or acute infarct. SINUSES: The visualized paranasal sinuses are clear. The mastoid air cells and middle ear cavities are well pneumatized. ORBITS: The visualized orbits are unremarkable. BONES/SOFT TISSUES: The extracranial soft tissues are unremarkable. The calvarium is intact. No suspicious lytic or sclerotic lesions. CT/CT head/brain wo IV con IMPRESSION: No acute intracranial abnormality. Mild generalized atrophy, nonspecific periventricular white matter disease and old right thalamic lacunar infarct similar to prior exams. Electronically signed by: Trina Cyr MD 06/12/2025 03:52 PM [facility] Dictated By: Trina Cyr MD Signed By: <Electronically signed by Trina Cyr MD in OV> 06/12/25 1552 DD/ 1513 TD/TT: 06/12/25 1530 Tie In Hand: JAMAAL Procedure Note Donotuseinterpreter, Image - 06/12/[address] [address] [address] Scan Report Signed Patient: Mary Lou Godwni ZMR#: M [id number] : 9Acct:[id number] Age/Sex: 74 / FADM Date: 06/12/25 Loc: HO.ED Attending Dr: Ordering Physician: Kristi Delvalle Date of Service: 06/12/25 Procedure(s): CT head/brain wo IV con Accession Number(s): [id number] cc: Amanda Watkins MD; Kristi Delvalle Report Number: [id number]: Total DLP = 0.00 mGy-cm Reason for Exam: fall, +HS on AC EXAMINATION: CT HEAD WITHOUT IV CONTRAST HISTORY: fall, +HS on AC. TECHNIQUE: Unenhanced helical CT of the head was performed per standard departmental protocol. Coronal and sagittal reformats of the head were also evaluated. One or more of the following techniques was used for dose reduction: Automated exposure control, adjustment of the mA and/or kV according to patient size, use of iterative reconstruction technique. DLP: 913 mGy-cm COMPARISON: Previous head CT June 03, 2025 FINDINGS: BRAIN: There is no evidence of an extra-axial collection. There is no evidence of intra or extra-axial hemorrhage. The ventricles and extra-axial CSF spaces are prominent suggestive of generalized atrophy. There is nonspecific periventricular white matter disease. There is an old right thalamic lacunar infarct unchanged. No mass, mass effect or acute infarct. SINUSES: The visualized paranasal sinuses are clear. The mastoid air cells and middle ear cavities are well pneumatized. ORBITS: The visualized orbits are unremarkable. BONES/SOFT TISSUES: The extracranial soft tissues are unremarkable. The calvarium is intact. No suspicious lytic or sclerotic lesions. CT/CT head/brain wo IV con IMPRESSION: No acute intracranial abnormality. Mild generalized atrophy, nonspecific periventricular white matter disease and old right thalamic lacunar infarct similar to prior exams. Electronically signed by: Trina Cyr MD 06/12/2025 03:52 PM EST Dictated By: Trina Cyr MD Signed By: <Electronically signed by Trina Cyr MD in OV> 06/12/25 1552 DD/ 1513 TD/TT: 06/12/25 1530 Tie In Hand: JAMAAL [employer] External Provider IMG CT PROCEDURES Final Result * (ABNORMAL) Urinalysis, Complete, with Reflex to Culture (06/11/2025 6:59 AM EST) Only the most recent of2 resultswithin the time period is included. Color Urine Straw [facility] Appearance Urine Clear [facility] PH 6.0 5.0 - 9.0 [facility] Glucose Urine UA >=1000(A) Negative mg/dL [facility] Urine Blood Trace Negative [facility] Specific [place] - Urine <=1.005 1.005 - 1.025 [facility] Urine Protein Negative Neg-Trace mg/dL [facility] Urine Ketones Negative Negative mg/dL [facility] Nitrite Urine Negative Negative [facility] Leukocyte Esterase Urine Negative Negative [facility] RBC Urine 3-5(A) 0 - 2 /HPF [facility] Urine WBC 0-5 0 - 5 /HPF [facility] Urine Squamous Epithelial Cell 0-2 0 - 2 /HPF [facility] Urine Bacteria Trace None Seen [facility] Hyaline Casts, Urine 0-2 0 - 2 /LPF [facility] 06/11/2025 6:5 9 AM EST 06/11/2025 7:02 AM EST Narrative [facility] - 06/11/2025 7:39 AM EST [id number], Clean Catch Generic External Data Provider LAB URINE ORDERAB LES Final Result [facility] [address] [place] [phone] * (ABNORMAL) Complete Blood Count Manual Diff (06/11/2025 1:41 AM EST) White Blood Count 5.6 4.8 - 10.8 X10*3/uL [facility] Red Blood Count 4.38 4.20 - 5.50 X10*6/uL [facility] Hemoglobin 11.7(L) 12.0 - 16.0 g/dl [facility] Hematocrit 36.2(L) 37.0 - 47.0 % [facility] Mean Corpuscular Volume 82.6 80.0 - 98.0 fL [facility] Mean Corpuscular Hemoglobin 26.7(L) 27.0 - 33.0 pg [facility] Mean Corpuscular HGB Conc 32.3 31.0 - 35.0 g/dl [facility] Red Cell Distribution Width 15.1 11.0 - 16.0 % [facility] Platelet Count 242 160 - 400 X10*3/uL [facility] Mean Platelet Volume 10.4 9.4 - 12.3 fL [facility] NRBC Pct Auto 0.0 0.0 - 0.2 /100WBC [facility] NRBC Abs Auto 0.000 0.0 - 0.012 X10*3/uL [facility] Neutrophils % Manual 71 45 - 73 % [facility] Band Neutrophils Percent 1(L) 3 - 5 % [facility] Lymphocytes Percent Manual 16(L) 20 - 40 % [facility] Atypical Lymphs Percent Manual 1 0 - 6 % [facility] Monocytes Percent Manual 8 2 - 11 % [facility] EOSINOPHILS % MANUAL 3 0 - 4 % [facility] NEUTROPHILS ABSOLUTE MANUAL 4.0 2.0 - 8.3 X10*3/uL [facility] LYMPHOCYTES ABSOLUTE MANUAL 0.9(L) 1.2 - 4.9 X10*3/uL [facility] Atypical Lymph Absolute Manual 0.1 x10*3/uL [facility] MONOCYTES ABSOLUTE MANUAL 0.4 0.1 - 1.2 X10*3/uL [facility] EOSINOPHILS ABSOLUTE MANUAL 0.2 0.0 - 0.4 X10*3/uL [facility] Platelet Estimate N[facility]AL [facility] Platelet Morphology Comment NORMAL [facility] RBC Morphology NOTED [facility] Hypochromasia 1+ (5-14) /OIF [facility] Microcytosis 1+ (5-14) /OIF [facility] 06/11/2025 1:41 AM EST 06/11/2025 1:44 AM EST us Generic External Data Provider LAB BLOOD ORDERAB LES Final Result Performing Organization Address [facility] Co de Phone Number [facility] [address] [place] [phone] * Magnesium (06/11/2025 1:41 AM EST) Magnesium 2.4 1.6 - 2.6 mg/dL [facility] 06/11/2025 1:41 AM EST 06/11/2025 1:44 AM EST Generic External Data Provider LAB BLOOD ORDERAB LES Final Result Performing Organization Address [facility] de Phone Number [facility] [address] [place] [phone] * XR Shoulder 2+ Views Left (06/03/2025 11:39 AM EDT) Anatomical Region Laterality Modality Upper Extremities, Shoulder Left Radi ographic Imaging 06/03/2025 11:3 9 AM EDT Narrative 06/03/2025 11:41 AM EDT [address] [address] XRay Report Signed Patient: Mary Lou Godwin MR#: M [id number] : 1950 Acct:[id number] Age/Sex: 74 / F ADM Date: 06/03/25 Loc: .ED Attending Dr: Ordering Physician: Kristi Delvalle Date of Service: 06/03/25 Procedure(s): XR shoulder LT min 2V Accession Number(s): [id number] cc: Amanda Watkins MD; Kristi Delvalle Reason [...] 06/03/25 1140 DD/ 1139 TD/TT: 06/03/25 1139 Tie In Hand: Procedure Note Donotuseinterpreter, Image - 06/03/[address] [address] XRay Report Signed Patient: Mary Lou Godwin ZMR#: M [id number] : 1950cct:[id number] Age/Sex: 74 / FADM Date: 06/03/25 Loc: .ED Attending Dr: Ordering Physician: Kristi Delvalle Date of Service: 06/03/25 Procedure(s): XR shoulder LT min 2V Accession Number(s): [id number] cc: Amanda Watkins MD; Kristi Delvalle Reason [...] Cruz MD in OV> 06/03/25 1140 DD/ 38 TD/TT: 06/03/251138 Tie In Hand: us [facility] External Provider IMG XR PROCEDURES Final Result * XR Wrist 3+ Views Left (06/03/2025 11:35 AM EDT) Anatomical Region Laterality Modality Upper Extremities, Wrist Left Radiogr aphic Imaging 06/03/2025 11:3 5 AM EDT Narrative 06/03/2025 11:37 AM EDT [address] [address] XRay Report Signed Patient: Mary Lou Godwin MR#: M [id number] : 1950 Acct:[id number] Age/Sex: 74 / F ADM Date: 06/03/25 Loc: HO.ED Attending Dr: Ordering Physician: Kristi Delvalle Date of Service: 06/03/25 Procedure(s): XR wrist LT min 3V Accession Number(s): [id number] cc: Amanda Watkins MD; Kristi Delvalle Reason [...] Cruz MD in OV> 06/03/25 1136 DD/ 34 TD/TT: 06/03/251134 Tie In Hand: Procedure Note Donabimaelinterpreter, Image - 06/03/[address] [address] XRay Report Signed Patient: Mary Lou Godwin ZMR#: Josh [id number] : 9Acct:[id number] Age/Sex: 74 / FADM Date: 06/03/25 Loc: HO.ED Attending Dr: Ordering Physician: Kristi Delvalle Date of Service: 06/03/25 Procedure(s): XR wrist LT min 3V Accession Number(s): [id number] cc: Amanda Watkins MD; Kristi Delvalle Reason [...] in OV> 06/03/25 1136 DD/ 1135 TD/TT: 06/03/25 1135 Tie In Hand: [employer] External Provider IMG XR PROCEDURES Final Result * (ABNORMAL) Hepatic Function Panel (06/03/2025 10:06 AM EDT) Bilirubin, Total 0.2 0.0 - 1.0 mg/dL [facility] Bilirubin, Direct <0.2 0.0 - 0.5 mg/dL [facility] Aspartate Amino Transferase 20 5 - 31 U/L [facility] Alanine Aminotransferase 18 0 - 31 U/L [facility] Total Protein 6.1(L) 6.5 - 8.0 g/dL [facility] Albumin Level 3.0(L) 3.5 - 5.0 g/dL [facility] Alkaline Phosphatase 70 39 - 117 U/L [facility] 06/03/2025 10:0 6 AM EDT 06/03/2025 10:10 AM EDT us Generic External Data Provider LAB BLOOD ORDERAB LES Final Result Performing Organization Address City/[facility]/ZIP Co de Phone Number [facility] [address] [place] [phone] * (ABNORMAL) Basic Metabolic Panel (06/03/2025 10:06 AM EDT) Sodium 140 135 - 145 mmol/L [facility] Potassium 4.4 3.3 - 5.1 mmol/L [facility] Chloride 101 96 - 108 mmol/L [facility] Carbon Dioxide 33(H) 22 - 29 mmol/L [facility] Anion Gap 10(L) 12 - 20 [facility] Urea Nitrogen (BUN) 33(H) 9 - 16 mg/dL [facility] Creatinine, Serum 1.44(H) 0.5 - 1.4 mg/dL [facility] Creatinine Clr Calc Pharmacy 40.1 [facility] Comment:Provided height and weight: 160.02 cm,109.7 kg.eGFR (calculated from the MDRD study equation) and eCrCl(calculated from the Cockcroft-Gault equation) are based ondifferent parameters and may not yield comparable results.If eCrCl result is absurd, please check patient'sheight/weight. Estimated Glomerular Filt Rate 35 [facility] Comment:Chronic Kidney Disea se: Estimated GFR < 60 mL/min/[id number] Kidney Disease: Estimated GFR < 15 mL/min/1.73m2 Glucose 342(H) 60 - 115 mg/dL [facility] Calcium 8.1(L) 8.4 - 10.2 mg/dL [facility] 06/03/2025 10:0 6 AM EDT 06/03/2025 10:10 AM EDT us Generic External Data Provider LAB BLOOD ORDERAB LES Final Result Performing Organization Address City/[facility]/ZIP Co de Phone Number [facility] [address] [place] [phone] * (ABNORMAL) Drug Monitoring, Panel 1, Screen, Urine (05/30/2025 5:56 AM EDT) Opiate Screen Urine Not Detected Not Detect [facility] Comment:Opiate cut-off is 30 0 ng/mL.Positive results are unconfirmed and should not be used fornon-medical purposes. Barbiturates, Urine Not Detected Not Detect [facility] Comment:Barbiturate cut-off is 200 ng/mL.Positive results are unconfirmed and should not be used fornon-medical purposes. Phencyclidine Screen Urine Not Detected Not Detect [facility] Comment:Phencyclidine cut-of f is 25 ng/mL.Positive results are unconfirmed and should not be used fornon-medical purposes. Amphetamine Screen Urine Not Detected Not Detect [facility] Comment:Amphetamine cut-off is 1000 ng/mL.Positive results are unconfirmed and should not be used fornon-medical purposes. Benzodiazepines Screen Urine Not Detected Not Detect [facility] Comment:Benzodiazepine cut-o ff is 200 ng/mL.Positive results are unconfirmed and should not be used fornon-medical purposes. Cocaine Screen Urine Not Detected Not Detect [facility] Comment:Cocaine cut-off is 3 00 ng/mL.Positive results are unconfirmed and should not be used fornon-medical purposes. Cannabinoid Screen Urine Not Detected Not Detect [facility] Comment:Cannabinoid cut-off is 50 ng/mL.Positive results are unconfirmed and should not be used fornon-medical purposes. Methadone Screen, Urine Not Detected Not Detect ng/mL [facility] Comment:Methadone cut-off is 300 ng/mL.Positive results are unconfirmed and should not be used fornon-medical purposes. FENTANYL URINE Not Detected Not Detect [facility] Comment:Fentanyl cut-off is 1 ng/mL.Positive results are unconfirmed and should not be used fornon-medical purposes. Oxycodone Urine Screen Positive(A) Not Detect ng/mL [facility] Comment:Oxycodone cut-off is 100 ng/mL.Positive results are unconfirmed and should not be used fornon-medical purposes. Buprenorphine Screen Not Detected Not Detect ng/mL [facility] Comment:Buprenorphine cut-of f is 5 ng/mL.Positive results are unconfirmed and should not be used fornon-medical purposes. 05/30/2025 5:56 AM EDT 05/30/2025 6:04 AM EDT Generic External Data Provider LAB URINE ORDERAB LES Final Result Performing Organization Address [facility] de Phone Number [facility] [address] [place] [phone] * Acetaminophen level (05/30/2025 12:14 AM EDT) Acetaminophen LAB <3 <30 mcg/mL [facility] 05/30/2025 12:1 4 AM EDT 05/30/2025 12:18 AM EDT Generic External Data Provider LAB BLOOD ORDERAB LES Final Result Performing Organization Address [facility] Phone Number [facility] [address] [place] [phone] * (ABNORMAL) Salicylate (05/30/2025 12:14 AM EDT) Salicylate <5.0(L) 15 - 30 mg/dL [facility] 05/30/2025 12:1 4 AM EDT 05/30/2025 12:18 AM EDT Generic External Data Provider LAB BLOOD ORDERAB LES Final Result Performing Organization Address [facility] Phone Number [facility] [address] [place] [phone] * (ABNORMAL) POCT Hgb A1c (05/08/2025 [...] PM EDT Narrative 04/17/2025 9:25 PM EDT [place] [address] CT Scan Report Signed with Tosin Patient: Mary Lou Godwin MR#: M [id number] : 1950 Acct:[id number] Age/Sex: 74 / F ADM Date: 04/17/25 Loc: HO.ED Attending Dr: Ordering Physician: Kassy Barnard DO Date of Service: 04/17/25 Procedure(s): CT shoulder RT wo IV con Accession Number(s): [id number] cc: Amanda Watkins MD; Kassy Barnard DO Report Number: [id number]: Total DLP = 476.00 mGy-cm Reason for [...] 21:23:50 ADDENDUM: This report was discussed with EKSHA RAWLS RN on Apr 17, 2025 21:25:00 [...] RT MIN 2V - 03/11/25 08:[address]/[place] - CT SHOULDER RT WO IV CON [...] in OV> 04/17/252124 DD/ 22 TD/TT: 04/17/252122 Tie In Hand: Procedure Note Donotbalbirinterpreter, Image - 04/17/[address] [address] [address] Scan Report Signed with Addenda Patient: Mary Lou Godwin ZMR#: M [id number] : 1950cct:[id number] Age/Sex: 74 / FADM Date: 04/17/25 Loc: .ED Attending Dr: Ordering Physician: Kassy Barnard DO Date of Service: 04/17/25 Procedure(s): CT shoulder RT wo IV con Accession Number(s): [id number] cc: Amanda Watkins MD; Kassy Barnard DO Report Number: [id number]: Total DLP = 476.00 mGy-cm Reason for [...] RT MIN 2V - 03/11/25 08:[address]/[place] - CT SHOULDER RT WO IV CON [...] in OV> 04/17/252124 DD/ 22 TD/TT: 04/17/252122 Tie In Hand: [facility] [employer] External Provider IMG CT PROCEDURES Edited Result - Final * Lactic Acid (04/17/2025 10:07 AM EDT) Lactic Acid 1.0 0.5 - 2.0 mmol/L [facility] 04/17/2025 10:0 7 AM EDT 04/17/2025 10:12 PM EDT us Generic External Data Provider LAB BLOOD ORDERAB LES Final Result Performing Organization Address [facility]/ZIP Co de Phone Number [facility] [address] [place] [phone] * (ABNORMAL) Lipid Panel, Standard (09/01/2024 2:09 PM EST) Triglycerides 241(H) <150 mg/dL [facility] Comment:Desirable Triglyceri de: less than 150 mg/dLBorderline High Triglyceride 150-199 mg/dLHigh Triglyceride: 200-499 mg/dLVery High Triglyceride: greater than or equal to 5OO mg/dL Cholesterol 107 <200 mg/dL [facility] Comment:Desirable Cholestero l: less than 200 mg/dLBorderline High Cholesterol: 200-239 mg/dLHigh Cholesterol: greater than 239 mg/dL LDL Cholesterol Calculated 34 <100 mg/dL [facility] Comment:Desirable LDL: less than 100 mg/dLNear Optimal/Above Optimal LDL: 110- 129 mg/dLBorderline High LDL: 130-159 mg/dLHigh LDL: 160-189 mg/dLVery High LDL: greater than or equal to 190 mg/dL HDL Cholesterol 25(L) >40 mg/dL [facility] Comment:Desirable HDL: great er than 40 mg/dL Note: This HDL assay may give artificially low results in patients with liver disease. 09/01/2024 2:09 PM EST 09/01/2024 4:09 PM EST us Amanda Myers MD LAB BLOOD ORDERABLES Final Result Performing Organization Address City/[facility]/ZIP Co de Phone Number [facility] [address] [place] [phone] * (ABNORMAL) ALBUMIN, RANDOM URINE W/CREATININE (08/04/2021 10:15 AM EST) Microalbumin Urine 66.2 See Note: mg/dL [facility] Comment: Reference Range: Reference Range [...] DO LAB URINE ORDERABLES Final R esult [facility] [address] from Last 3 Months or Most Recently Relevant to Health Maintenance Insurance [facility] [employer] (HMO D-SNP) [employer] Care Teams Scrap Charger Relationship Specialty Start Date End Date Amanda Watkins MD [address] [place] [phone] PCP - General Family Medicine 04/07/19 Hiro Ram FNP [address] [place] [phone] Nurse Practitioner Family Medicine 07/06/23 Raad Arias, TheaD [address] [place] [phone] Pharmacist Internal Medicine 10/19/24 [facility] 03/08/25
--- OUTSIDE RECORDS SUMMARY | 2025-06-12 17:40 | XMS_ITS | Clinical Summary ---
Author Organization [facility] Address [address] [place] [phone] Phone Care Team Providers Care Goods Layer Name Role Phone Amanda Watkins MD Primary [...] 12/06/2023, 07/16/2016, 02/17/2013, Additional history exists Insurance [facility] MCR ([id number]) [place] [id number] [place] [id number] [facility] ([id number]) [place]OP[place] [id number] Care Teams Goods Layer Relationship Specialty Start Date End Date Amanda Watkins MD [address] [place] [phone] PCP - General Internal Medicine 03/01/23
--- OUTSIDE RECORDS SUMMARY | 2025-06-12 17:40 | XMS_ITS | Encounter Summary ---
Author Organization [employer] Address [address] [facility] [address] [place] [address] Care Team Providers Care Heat Treater Name Role Phone Amanda Watkins MD Primary Care Provide r Hiro Ram [employer] Unavailable Unavailable Raad Arias PharmD Unavailable Encounter [...] Description 07/09/2025 3:30 PM EST Office Visit [address] [address] Amanda Watkins MD [address] [place] [phone] 09/21/2025 10:00 AM EST Telemedicine [address] [address] Kayley Alanis RN documented as of this encounter Visit Diagnoses Not on filedocumented in this encounter Additional Health Concerns Assessment Noted Time PHQ-9 Depression Total Score: 14 025 2:41 PM EDT documented as of this encounter Care Teams Heat Treater Relationship Specialty Start Date End Date Amanda Watkins MD [address] [place] [phone] PCP - General Family Medicine 04/07/19 Hiro Ram FNP [address] [place] [phone] Nurse Practitioner Family Medicine 07/06/23 Raad Arias, Carlos [address] [place] [phone] Pharmacist Internal Medicine 10/19/24 [facility] 03/08/25 documented as of this encounter
--- OUTSIDE RECORDS SUMMARY | 2025-06-12 17:40 | XMS_ITS | Encounter Summary ---
Author Organization [employer] Address [address] [facility] 7t [place] [address] Care Team Providers Care Clerical Secretary Name Role Phone Amanda Watkins MD Primary Care Provide r Hiro Ram ELECTRICIAN ASSISTANT Unavailable Unavailable Raad Arias PharmD Unavailable Encounter Details Date Type Department Care Team (Late st Contact Info) Description 06/12/2025 Orders Only GENERIC EXTERNAL DATA [...] Description 07/09/2025 3:30 PM EST Office Visit [facility] MEDICINE [address] [place] [address] [phone] Amanda Watkins MD [address] [place] [address] [phone] 09/21/2025 10:00 AM EST Telemedicine [address] [phone] Kayley Alanis RN documented as of this encounter Procedures Procedure Name Priority Date/Time Associated Diagnosis Comments GLUCOSE, WHOLE BLOOD Routine 06/12/2025 5:04 PM EST VENOUS BLOOD GAS Routine 06/12/2025 3:41 PM EST HIGH SENSITIVITY TROPONIN I Routine 06/12/2025 3:35 PM EST BETA-HYDROXYBUTYRATE Routine 06/12/2025 3:35 PM EST CBC WITH AUTO DIFFERENTIAL Routine 06/12/2025 3:35 PM EST AMMONIA (P) Routine 06/12/2025 3:35 PM EST COMPREHENSIVE METABOLIC PANEL Routine 06/12/2025 3:[address] CERVICAL SPINE WO CONTRAST Routine 06/12/2025 3:[address] HEAD WO CONTRAST Routine 06/12/2025 3 :13 PM EST GLUCOSE, WHOLE BLOOD Routine 06/12/2025 2:19 PM EST documented in this encounter Results * (ABNORMAL) Glucose, Whole Blood (06/12/2025 5:04 PM EST) Glucose, Whole Blood 476(HH) 60 - 115 mg/dL [facility] Comment:METER #: [id number] 06/12/2025 5:04 PM EST 06/12/2025 5:07 PM EST us Generic External Data Provider LAB BLOOD ORDERAB LES Final Result Performing Organization Address City/State/[facility] Co de Phone Number [facility] [address] [place] [address] [phone] * (ABNORMAL) VENOUS BLOOD GAS (06/12/2025 3:41 PM EST) VBG pH 7.47(H) 7.32 - 7.43 [facility] Comment:METER #: [id number] additional_comment: Huseyin mancini VBG PCO2 43 mmHg [facility] Comment:METER #: [id number] additional_comment: Huseyin mancini VBG PO2 42 mmHg [facility] Comment:METER #: [id number] additional_comment: Huseyin ELG Base Excess 8.2 mmol/L [facility] Comment:METER #: [id number] additional_comment: Huseyin ELG HCO3 32(H) 22 - 26 mmol/L [facility] Comment:METER #: [id number] additional_comment: Huseyin mancini O2 Sat, Samuel 67.0 % [facility] Comment:METER #: [id number] additional_comment: Huseyin mancini 06/12/2025 3:41 PM EST 06/12/2025 3:44 PM EST Generic External Data Provider LAB BLOOD ORDERAB LES Final Result Performing Organization Address [facility] Co de Phone Number [facility] [address] [place] [phone] * Beta-Hydroxybutyrate (06/12/2025 3:35 PM EST) Pathologist [facility] Beta-Hydroxybut yrate 0.12 0.02 - 0.27 mmol/L [facility] 06/12/2025 3:35 PM EST 06/12/2025 3:39 PM EST Generic External Data Provider LAB BLOOD ORDERAB LES Final Result Performing Organization Address [facility] [address] [place] [address] [phone] * High Sensitivity Troponin I (06/12/2025 3:35 PM EST) [facility] TROPONIN I HIGH SENSITIVITY 8.3 <3.5 - 17.0 ng/L [facility] Comment:The Augustin high sens itivity Troponin-I results should beused in conjunction with other diagnostic information suchas ECG, clinical observations and information, and patientsymptoms to aid in the diagnosis of GA. 06/12/2025 3:35 PM EST 06/12/2025 3:39 PM EST Generic External Data Provider LAB BLOOD ORDERAB LES Final Result Performing Organization Address [facility] Co de Phone Number [facility] [address] [place] [address] [phone] * (ABNORMAL) Comprehensive Metabolic Panel (06/12/2025 3:35 PM EST) [facility] Sodium 134(L) 135 - 145 mmol/L [facility] Potassium 4.9 3.3 - 5.1 mmol/L [facility] Chloride 95(L) 96 - 108 mmol/L [facility] Carbon Dioxide 33(H) 22 - 29 mmol/L [facility] Anion Gap 11(L) 12 - 20 [facility] Urea Nitrogen (BUN) 24(H) 9 - 16 mg/dL [facility] Creatinine, Serum 1.34 0.5 - 1.4 mg/dL [facility] Creatinine Clr Calc Pharmacy 41.2 [facility] Comment:Provided height and weight: 154.94 cm,108.6 kg.eGFR (calculated from the MDRD study equation) and eCrCl(calculated from the Cockcroft-Gault equation) are based ondifferent parameters and may not yield comparable results.If eCrCl result is absurd, please check patient'sheight/weight. Estimated Glomerular Filt Rate 39 [facility] Comment:Chronic Kidney Disea se: Estimated GFR < 60 mL/min/1.38q0Qhsadq Kidney Disease: Estimated GFR < 15 mL/min/1.73m2 Glucose 545(HH) 60 - 115 mg/dL [facility] Comment:Critical value for t est(s): GLUR Results called to and readback by: KEISHA Person calling:ALKASAB Date:06/12/25Time:16:02 Calcium 9.1 8.4 - 10.2 mg/dL [facility] Bilirubin, Total 0.3 0.0 - 1.0 mg/dL [facility] Aspartate Amino Transferase 16 5 - 31 U/L [facility] Alanine Aminotransferase 7 0 - 31 U/L [facility] Total Protein 6.8 6.5 - 8.0 g/dL [facility] Albumin Level 3.5 3.5 - 5.0 g/dL [facility] Alkaline Phosphatase 88 39 - 117 U/L [facility] 06/12/2025 3:35 PM EST 06/12/2025 3:39 PM EST us Generic External Data Provider LAB BLOOD ORDERAB LES Final Result [facility] [address] [place] [phone] * Ammonia, Plasma (06/12/2025 3:35 PM EST) Ammonia (P) 21 13 - 55 umol/L [facility] 06/12/2025 3:35 PM EST 06/12/2025 3:39 PM EST us Generic External Data Provider LAB BLOOD ORDERAB LES Final Result [facility] [address] [place] [phone] [phone] * (ABNORMAL) CBC auto differential (06/12/2025 3:35 PM EST) Pathologist [facility] White Blood Count 4.9 4.8 - 10.8 X10*3/uL [facility] Red Blood Count 4.51 4.20 - 5.50 X10*6/uL [facility] Hemoglobin 12.0 12.0 - 16.0 g/dl [facility] Hematocrit 37.4 37.0 - 47.0 % [facility] Mean Corpuscular Volume 82.9 80.0 - 98.0 fL [facility] Mean Corpuscular Hemoglobin 26.6(L) 27.0 - 33.0 pg [facility] Mean Corpuscular HGB Conc 32.1 31.0 - 35.0 g/dl [facility] Red Cell Distribution Width 14.8 11.0 - 16.0 % [facility] Platelet Count 226 160 - 400 X10*3/uL [facility] Mean Platelet Volume 10.2 9.4 - 12.3 fL [facility] Neutrophils Percent Auto 59.0 45 - 73 % [facility] Imm Gran Pct Auto 0.4 0.0 - 0.4 % [facility] Lymphocytes Percent Auto 26.3 20 - 40 % [facility] Monocytes Percent Auto 9.0 2 - 11 % [facility] Eosinophils Percent Auto 4.3(H) 0 - 4 % [facility] Basophils Percent Auto 1.0 0 - 2 % [facility] NRBC Pct Auto 0.0 0.0 - 0.2 /100WBC [facility] Neutrophils Absolute Auto 2.9 2.0 - 8.3 x10*3/uL [facility] Imm Gran Abs Auto 0.02 0.00 - 0.03 X10*3/uL [facility] Lymphocytes Absolute Auto 1.3 1.2 - 4.9 X10*3/uL [facility] Monocytes Absolute Auto 0.4 0.1 - 1.2 X10*3/uL [facility] Eosinophils Absolute Auto 0.2 0.0 - 0.4 X10*3/uL [facility] Basophils Absolute Auto 0.1 0.0 - 0.2 X10*3/uL [facility] NRBC Abs Auto 0.000 0.0 - 0.012 X10*3/uL [facility] 06/12/2025 3:35 PM EST 06/12/2025 3:39 PM EST us Generic External Data Provider LAB BLOOD ORDERAB LES Final Result Performing Organization Address City/State/[facility] Co de Phone Number [facility] [address] [place] [phone] * CT Head w/o Contrast (06/12/2025 3:13 PM EST) Anatomical Region Laterality Modality Head, Neck Computed Tomogra phy 06/12/2025 3:13 PM EST Narrative 06/12/2025 3:56 PM EST [address] [address] [address] Scan Report Signed Patient: Mary Lou Godwin MR#: [id number] : 1950 Acct:[id number] Age/Sex: 74 / F ADM Date: 06/12/25 Loc: HO.ED Attending Dr: Ordering Physician: Kristi Delvalle Date of Service: 06/12/25 Procedure(s): CT head/brain wo IV con Accession Number(s): [id number] cc: Amanda Watkins MD; Kristi Delvalle Report Number: [id number]: Total DLP = 0.00 mGy-cm Reason for [...] 06/12/25 1552 DD/ 1513 TD/TT: 06/12/25 1530 Yard Foreman: JAMAAL Procedure Note Donotuseinterpreter, Image - 06/12/[address] [address] [address] Scan Report Signed Patient: Mary Lou Godwin ZMR#: [id number] : 1950cct:[id number] Age/Sex: 74 / FADM Date: 06/12/25 Loc: HO.ED Attending Dr: Ordering Physician: Kristi Delvalle Date of Service: 06/12/25 Procedure(s): CT head/brain wo IV con Accession Number(s): [id number] cc: Amanda Watkins MD; Kristi Delvalle Report Number: [id number]: Total DLP = 0.00 mGy-cm Reason for [...] by: Trina Cyr MD 06/12/2025 03:52 PM [facility] [place] Dictated By: Trina Cyr MD Signed By: <Electronically signed by Trina Cyr MD in OV> 06/12/25 1552 DD/ 1513 TD/TT: 06/12/25 1530 Yard Foreman: JAMAAL [facility] External Provider IMG CT PROCEDURES Final Result * CT Cervical Spine w/o Contrast (06/12/2025 3:13 PM EST) Anatomical Region Laterality Modality Spine, C-spine Computed Tomogra phy 06/12/2025 3:13 PM EST Narrative 06/12/2025 3:42 PM EST [address] [address] [address] Scan Report Signed Patient: Mary Lou Godwin MR#: [id number] : 1950 Acct:[id number] Age/Sex: 74 / F ADM Date: 06/12/25 Loc: HO.ED Attending Dr: Ordering Physician: Kristi Delvalle Date of Service: 06/12/25 Procedure(s): CT cervical spine wo IV con Accession Number(s): [id number] cc: Amanda Watkins MD; Kristi Delvalle Report Number: [id number]: Total DLP = 1657.07 mGy-cm Reason for [...] 06/12/25 1539 DD/ 1513 TD/TT: 06/12/25 1530 Yard Foreman: Procedure Note Donotuseinterpreter, Image - 06/12/[address] [place] [address] [address] Scan Report Signed Patient: Mary Lou Godwin ZMR#: [id number] : 9Acct:[id number] Age/Sex: 74 / FADM Date: 06/12/25 Loc: HO.ED Attending Dr: Ordering Physician: Kristi Delvalle Date of Service: 06/12/25 Procedure(s): CT cervical spine wo IV con Accession Number(s): [id number] cc: Amanda Watkins MD; Kristi Delvalle Report Number: [id number]: Total DLP = 1657.07 mGy-cm Reason for [...] 06/12/25 1539 DD/ 1513 TD/TT: 06/12/25 1530 Yard Foreman: [facility] External Provider IMG CT PROCEDURES Final Result * (ABNORMAL) Glucose, Whole Blood (06/12/2025 2:19 PM EST) Glucose, Whole Blood 537(HH) 60 - 115 mg/dL [facility] Comment:METER #: [id number] 06/12/2025 2:19 PM EST 06/12/2025 2:24 PM EST us Generic External Data Provider LAB BLOOD ORDERAB LES Final Result [facility] [address] [place] [phone] documented in this encounter Visit Diagnoses Not on filedocumented in this encounter Additional Health Concerns Assessment Noted Time PHQ-9 Depression Total Score: 14 025 2:41 PM EDT documented as of this encounter Care Teams Clerical Secretary Relationship Specialty Start Date End Date Amanda Watkins MD [address] [place] [address] 48698 PCP - General Family Medicine 04/07/19 Hiro Ram FNP [address] [place] [address] 40711 Nurse Practitioner Family Medicine 07/06/23 Raad Arias, TheaD [address] [place] [address] [phone] Pharmacist Internal Medicine 10/19/24 [facility] 03/08/25 documented as of this encounter
--- OUTSIDE RECORDS SUMMARY | 2025-06-12 17:40 | XMS_ITS | Encounter Summary ---
Author Organization [employer] Address [address] [place] [address] 7t [place] [address] Care Team Providers Care Intelligence Group Supervisor Name Role Phone Amanda Watkins MD Primary Care Provide r Hiro Ram COAL INSPECTOR Unavailable Unavailable Raad Arias PharmD Unavailable [phone] Encounter Details Date Type Department Care Team ([facility] st Contact Info) Description 09/06/2024 Orders Only [facility] [address] [place], [place] [phone] MiltonWaldemar Chance MD [address] [place] [address] Social History Tobacco Use Types Packs/Day Years [...] Description 07/09/2025 3:30 PM EST Office Visit [address] [address] Amanda Watkins MD [address] [place] [address] 09/21/2025 10:00 AM EST Telemedicine [address] [address] Kayley Alanis RN documented as of this encounter Visit Diagnoses Not on filedocumented in this encounter Additional Health Concerns Assessment Noted Time PHQ-9 Depression Total Score: 0 09/01/19 25 1:18 PM EST documented as of this encounter Care Teams Intelligence Group Supervisor Relationship Specialty Start Date End Date Amanda Watkins MD [address] [place] [phone] PCP - General Family Medicine 04/07/19 Hiro Ram FNP [address] [place] [address] 9[address]30 Nurse Practitioner Family Medicine 07/06/23 Raad Arias, TheaD [address] [place] [address] [place] [phone] Pharmacist Internal Medicine 10/19/24 Ja ARCE 08/10/24 03/12/25 [facility] 03/08/25 documented as of this encounter
--- OUTSIDE RECORDS SUMMARY | 2025-06-12 17:40 | XMS_ITS | Encounter Summary ---
Author Organization [employer] Address 75 [facility] 7t [place] [address] Care Team Providers Care Complaint Manager Name Role Phone Amanda Watkins MD Primary Care Provide r Hiro Ram PATIENT SUPPORT ASSOCIATE Unavailable Unavailable Raad Arias PharmD Unavailable [phone] Reason for Visit * Reason Onset Date Comments Hospital Follow-up 08/16/2024 Encounter Details Date Type Department Care Team (Late st Contact Info) Description 08/16/2024 Telephone [facility] MEDICINE [address] [place] [address] Amanda Watkins MD [address] [place], [place] [phone] Hospital Follow-up Social History Tobacco Use Types [...] from pt requesting a HDF appt. Hospital: [facility] Date of admission: 08/12/24 Discharge date: 08/15/2024 Diagnosed: (water in the lungs) *Send message to [facility] Clinical Care Coordinators documented in this encounter Plan of Treatment Upcoming Encounters Date Type Department Care Team (Late st Contact Info) Description 07/09/2025 3:30 PM EST Office Visit [facility] MEDICINE [address] [place] [phone] Amanda Watkins MD [address] [place] [address] 09/21/2025 10:00 AM EST Telemedicine [address] [address] Kayley Alanis RN documented as of this encounter Visit Diagnoses Not on filedocumented in this encounter Additional Health Concerns Assessment Noted Time PHQ-9 Depression Total Score: 10 024 3:23 PM EDT documented as of this encounter Care Teams Complaint Manager Relationship Specialty Start Date End Date Amanda Watkins MD [address] [place] [address] PCP - General Family Medicine 04/07/19 Hiro Ram FNP [address] [place] [address] Nurse Practitioner Family Medicine 07/06/23 Raad Arias, TheaD [address] [place] [address] Pharmacist Internal Medicine 10/19/24 [facility] 07/03/22 08/16/24 Ja A 08/10/24 03/12/25 [facility] 03/08/25 documented as of this encounter
--- OUTSIDE RECORDS SUMMARY | 2025-06-12 17:40 | XMS_ITS | Encounter Summary ---
Author Organization [employer] Address 75 [facility] 7t [place] [address] Care Team Providers Care Rn Medical Surgical Name Role Phone Amanda Watkins MD Primary Care Provide r Hiro Ram REHAB SERVICES AIDE Unavailable Unavailable Raad Arias PharmD Unavailable [phone] Reason for Visit * Reason Comments Med Refill Encounter Details Date Type Department Care Team (Late st Contact Info) Description 07/05/2024 Refill [facility] MEDICINE [address] [place] [address] Amanda Watkins MD [address] [place], [place] [phone] Social History Tobacco Use Types Packs/Day Years [...] Description 07/09/2025 3:30 PM EST Office Visit [address] [address] Amanda Watkins MD [address] [place] [address] 09/21/2025 10:00 AM EST Telemedicine [address] [address] Kayley Alanis RN documented as of this encounter Visit Diagnoses Not on filedocumented in this encounter Additional Health Concerns Assessment Noted Time PHQ-9 Depression Total Score: 10 024 3:23 PM EDT documented as of this encounter Care Teams Rn Medical Surgical Relationship Specialty Start Date End Date Amanda Watkins MD [address] [place] [address] PCP - General Family Medicine 04/07/19 Hiro Ram FNP [address] [place] [address] Nurse Practitioner Family Medicine 07/06/23 Raad Arias, TheaD [address] [place] [address] Pharmacist Internal Medicine 10/19/24 [facility] 07/03/22 08/16/24 Ja ARCE 08/10/24 03/12/25 [facility] 03/08/25 documented as of this encounter
--- OUTSIDE RECORDS SUMMARY | 2025-06-12 17:40 | XMS_ITS | Encounter Summary ---
Author Organization [employer] Address 75 [facility] 7t [place] [address] Care Team Providers Care Automobile Parker Name Role Phone Amanda Watkins MD Primary Care Provide r Hiro Ram SPORTS MEDIA Unavailable Unavailable Raad Arias PharmD Unavailable [phone] Reason for Visit * Reason Onset Date Comments Appointment Request 04/30/2025 Encounter Details Date Type Department Care Team ([facility] st Contact Info) Description 04/30/2025 Telephone [facility] MEDICINE [address] [place] [address] Amanda Watkins MD [address] [place] [address] Appointment Request Social History Tobacco Use Types [...] requesting to reschedule CDTM apt Contact at [phone] (marshallese) documented in this encounter Plan of Treatment Upcoming Encounters Date Type Department Care Team (Late st Contact Info) Description 07/09/2025 3:30 PM EST Office Visit [facility] MEDICINE [address] [place] [address] Amanda Watkins MD [address] [place] [address] 09/21/2025 10:00 AM EST Telemedicine [facility] MEDICINE [address] [place] [address] Kayley Alanis RN documented as of this encounter Visit Diagnoses Not on filedocumented in this encounter Additional Health Concerns Assessment Noted Time PHQ-9 Depression Total Score: 14 025 2:41 PM EDT documented as of this encounter Care Teams Automobile Parker Relationship Specialty Start Date End Date Amanda Watkins MD [address] [place] [address] PCP - General Family Medicine 04/07/19 Hiro Ram FNP [address] [place] [address] Nurse Practitioner Family Medicine 07/06/23 Raad Arias, TheaD [address] [place] [address] Pharmacist Internal Medicine 10/19/24 [facility] 03/08/25 documented as of this encounter
--- OUTSIDE RECORDS SUMMARY | 2025-06-12 17:40 | XMS_ITS | Encounter Summary ---
Author Organization [employer] Address 75 [facility] 7t [place] [address] Care Team Providers Care Hazardous Materials Waste Technician Name Role Phone Amanda Watkins MD Primary Care Provide r Hiro Ram EXCHANGE MECHANIC Unavailable Unavailable Raad Arias PharmD Unavailable [phone] Reason for Visit * Reason Comments Med Refill Encounter Details Date Type Department Care Team (Late st Contact Info) Description 02/11/2024 Refill [facility] MEDICINE [address] [place] [address] Amanda Watkins MD [address] [place], [place] [phone] Type 2 diabetes mellitus with other specified complication, unspecified whether watermelon harvesting supervisor insulin use ([facility]) Social History Tobacco Use Types Packs/Day Years [...] Description 07/09/2025 3:30 PM EST Office Visit [address] [address] Amanda Watkins MD [address] [place] [address] 09/21/2025 10:00 AM EST Telemedicine [address] [address] Kayley Alanis RN documented as of this encounter Visit Diagnoses Diagnosis Type 2 diabetes mellitus with other specified complication, unspecified whether [facility] insulin use (HCC) documented in this encounter Additional Health Concerns Assessment Noted Time PHQ-9 Depression Total Score: 10 024 3:23 PM EDT documented as of this encounter Care Teams Hazardous Materials Waste Technician Relationship Specialty Start Date End Date Amanda Watkins MD [address] [place] [address] PCP - General Family Medicine 04/07/19 Hiro Ram FNP [address] [place] [address] Nurse Practitioner Family Medicine 07/06/23 Raad Arias, PharmD [address] [place] [address] CORINNE Peres [address] Pharmacist Internal Medicine 10/19/24 [facility] 07/03/22 08/16/24 Ja REPLACED BY [facility] 08/10/24 03/12/25 [facility] 03/08/25 documented as of this encounter
--- OUTSIDE RECORDS SUMMARY | 2025-06-12 17:40 | XMS_ITS | Encounter Summary ---
Author Organization [employer] Address 75 [facility] 7t [place] [address] Care Team Providers Care Sales Contract Administrator Name Role Phone Amanda Watkins MD Primary Care Provide r Hiro Ram EMERGENCY COMMUNICATIONS OPERATOR Unavailable Unavailable Raad Arias PharmD Unavailable [phone] Reason for Visit * Reason Comments Med Refill Encounter Details Date Type Department Care Team (Late st Contact Info) Description 10/10/2024 Refill [facility] [address] [place] [address] Amanda Watkins MD [address] [place] [address] Social History Tobacco Use Types Packs/Day Years [...] 07/09/2025 3:30 PM EST Office Visit [facility] MEDICINE [address] [place] [address] Amanda Watkins MD [address] [place] [address] 09/21/2025 10:00 AM EST Telemedicine [address] [address] Kayley Alanis RN documented as of this encounter Visit Diagnoses Not on filedocumented in this encounter Additional Health Concerns Assessment Noted Time PHQ-9 Depression Total Score: 0 09/01/19 25 1:18 PM EST documented as of this encounter Care Teams Sales Contract Administrator Relationship Specialty Start Date End Date Amanda Watkins MD [address] [place] [address] PCP - General Family Medicine 04/07/19 Hiro Ram FNP [address] [place] [address] Nurse Practitioner Family Medicine 07/06/23 Raad Arias, PharmD [address] [place] [address] Pharmacist Internal Medicine 10/19/24 Ja ARCE 08/10/24 03/12/25 [facility] 03/08/25 documented as of this encounter
--- OUTSIDE RECORDS SUMMARY | 2025-06-12 17:40 | XMS_ITS | Encounter Summary ---
Author Organization [employer] Address 75 [facility] 7t [place] [address] Care Team Providers Care Cocoa Butter Filter Operator Name Role Phone Amanda Watkins MD Primary Care Provide r Hiro Ram MANUFACTURING GROUP LEADER Unavailable Unavailable Raad Arias PharmD Unavailable [phone] Encounter Details Date Type Department Care Team [...] Description 07/09/2025 3:30 PM EST Office Visit [facility] [address] [place] [phone] Amanda Watkins MD [address] [place] [address] [phone] 09/21/2025 10:00 AM EST Telemedicine [address] [phone] Kayley Alanis RN documented as of this encounter Procedures Procedure Name Priority Date/Time Associated Diagnosis Comments GLUCOSE, WHOLE BLOOD Routine 06/11/2025 4:14 PM [...] encounter Results * (ABNORMAL) Glucose, Whole Blood (06/11/2025 4:14 PM EST) Glucose, Whole Blood 242(H) 60 - 115 mg/dL [facility] Comment:METER #: [id number] 06/11/2025 4:14 PM EST 06/11/2025 4:18 PM EST us Generic External Data Provider LAB BLOOD ORDERAB LES Final Result [facility] [address] [place] [address] [phone] * (ABNORMAL) Urinalysis, Complete, with Reflex to Culture (06/11/2025 6:59 AM EST) Color Urine Straw [facility] Appearance Urine Clear [facility] PH 6.0 5.0 - 9.0 [facility] Glucose Urine UA >=1000(A) Negative mg/dL [facility] Urine Blood Trace Negative [facility] Specific [place] - Urine <=1.005 1.005 - 1.025 [facility] Urine Protein Negative Neg-Trace mg/dL [facility] Urine Ketones Negative Negative mg/dL [facility] Nitrite Urine Negative Negative [facility] Leukocyte Esterase Urine Negative Negative [facility] RBC Urine 3-5(A) 0 - 2 /HPF [facility] Urine WBC 0-5 0 - 5 /HPF [facility] Urine Squamous Epithelial Cell 0-2 0 - 2 /HPF [facility] Urine Bacteria Trace None Seen [facility] Hyaline Casts, Urine 0-2 0 - 2 /LPF [facility] 06/11/2025 6:59 AM EST 06/11/2025 7:02 AM EST Narrative [facility] - 06/11/2025 7:39 AM EST [id number], Clean Catch us Generic External Data Provider LAB URINE ORDERAB LES Final Result Performing Organization Address City/[facility]/ZIP Co de Phone Number [facility] [address] [place] [address] [phone] * (ABNORMAL) Glucose, Whole Blood (06/11/2025 6:37 AM EST) Glucose, Whole Blood 421(HH) 60 - 115 mg/dL [facility] Comment:METER #: [id number] 06/11/2025 6:37 AM EST 06/11/2025 6:40 AM EST us Generic External Data Provider LAB BLOOD ORDERAB LES Final Result Performing Organization Address [facility] Co de Phone Number [facility] [address] [place] [phone] * (ABNORMAL) Glucose, Whole Blood (06/11/2025 4:13 AM EST) Glucose, Whole Blood 465(HH) 60 - 115 mg/dL [facility] Comment:METER #: [id number] 06/11/2025 4:13 AM EST 06/11/2025 4:17 AM EST us Generic External Data Provider LAB BLOOD ORDERAB LES Final Result Performing Organization Address [facility]/ZIP Co de Phone Number [facility] [address] [place] [phone] * (ABNORMAL) VENOUS BLOOD GAS (06/11/2025 3:00 AM EST) VBG pH 7.38 7.32 - 7.43 [facility] Comment:METER #: [id number] additional_comment: Cb ferrinc VBG PCO2 55 mmHg [facility] Comment:METER #: [id number] additional_comment: Cb ferrinc VBG PO2 100 mmHg [facility] Comment:METER #: [id number] additional_comment: Cb ferrinc VBG Base Excess 6.6 mmol/L [facility] Comment:METER #: [id number] additional_comment: Cb ferrinc VBG HCO3 33(H) 22 - 26 mmol/L [facility] Comment:METER #: [id number] additional_comment: Cb ferrinc O2 Sat, Samuel 99.0 % [facility] Comment:METER #: [id number] additional_comment: Cb ferrinc 06/11/2025 3:00 AM EST 06/11/2025 3:03 AM EST us Generic External Data Provider LAB BLOOD ORDERAB LES Final Result Performing Organization Address City/[facility]/ZIP Co de Phone Number [facility] [address] [place] [address] [phone] * Beta-Hydroxybutyrate (06/11/2025 1:41 AM EST) Beta-Hydroxybut yrate 0.13 0.02 - 0.27 mmol/L [facility] 06/11/2025 1:41 AM EST 06/11/2025 1:44 AM EST us Generic External Data Provider LAB BLOOD ORDERAB LES Final Result Performing Organization Address [facility] Co de Phone Number [facility] [address] [place] [address] [phone] * Magnesium (06/11/2025 1:41 AM EST) Magnesium 2.4 1.6 - 2.6 mg/dL [facility] 06/11/2025 1:41 AM EST 06/11/2025 1:44 AM EST us Generic External Data Provider LAB BLOOD ORDERAB LES Final Result [facility] [address] [place] [address] [phone] * (ABNORMAL) Comprehensive Metabolic Panel (06/11/2025 1:41 AM EST) Sodium 131(L) 135 - 145 mmol/L [facility] Potassium 4.7 3.3 - 5.1 mmol/L [facility] Chloride 93(L) 96 - 108 mmol/L [facility] Carbon Dioxide 30(H) 22 - 29 mmol/L [facility] Anion Gap 13 12 - 20 [facility] Urea Nitrogen (BUN) 26(H) 9 - 16 mg/dL [facility] Creatinine, Serum 1.36 0.5 - 1.4 mg/dL [facility] Comment:Creatinine results a t the upper end of the reference rangemay show a slight artifactual increase if the glucose resultis >600 mg/dL. Recommend rechecking the creatinine when theglucose is <600 mg/dL. Creatinine Clr Calc Pharmacy 39.5 [facility] Comment:Provided height and weight: 165.1 cm,90 kg.eGFR (calculated from the MDRD study equation) and eCrCl(calculated from the Cockcroft-Gault equation) are based ondifferent parameters and may not yield comparable results.If eCrCl result is absurd, please check patient'sheight/weight. Estimated Glomerular Filt Rate 38 [facility] Comment:Chronic Kidney Disea se: Estimated GFR < 60 mL/min/1.01q8Alytvr Kidney Disease: Estimated GFR < 15 mL/min/1.73m2 Glucose 666(HH) 60 - 115 mg/dL [facility] Comment:Critical value for t est(s): GLU Results called to and readback by: WOO Person calling: IDRISH Date: 06/11/25 Time:02:04 Calcium 8.4 8.4 - 10.2 mg/dL [facility] Bilirubin, Total 0.2 0.0 - 1.0 mg/dL [facility] Aspartate Amino Transferase 15 5 - 31 U/L [facility] Alanine Aminotransferase 7 0 - 31 U/L [facility] Total Protein 6.7 6.5 - 8.0 g/dL [facility] Albumin Level 3.5 3.5 - 5.0 g/dL [facility] Alkaline Phosphatase 78 39 - 117 U/L [facility] 06/11/2025 1:41 AM EST 06/11/2025 1:44 AM EST us Generic External Data Provider LAB BLOOD ORDERAB LES Final Result [facility] [address] [place] [address] [phone] * (ABNORMAL) Complete Blood Count Manual Diff (06/11/2025 1:41 AM EST) White Blood Count 5.6 4.8 - 10.8 X10*3/uL [facility] Red Blood Count 4.38 4.20 - 5.50 X10*6/uL [facility] Hemoglobin 11.7(L) 12.0 - 16.0 g/dl [facility] Hematocrit 36.2(L) 37.0 - 47.0 % [facility] Mean Corpuscular Volume 82.6 80.0 - 98.0 fL [facility] Mean Corpuscular Hemoglobin 26.7(L) 27.0 - 33.0 pg [facility] Mean Corpuscular HGB Conc 32.3 31.0 - 35.0 g/dl [facility] Red Cell Distribution Width 15.1 11.0 - 16.0 % [facility] Platelet Count 242 160 - 400 X10*3/uL [facility] Mean Platelet Volume 10.4 9.4 - 12.3 fL [facility] NRBC Pct Auto 0.0 0.0 - 0.2 /100WBC [facility] NRBC Abs Auto 0.000 0.0 - 0.012 X10*3/uL [facility] Neutrophils % Manual 71 45 - 73 % [facility] Band Neutrophils Percent 1(L) 3 - 5 % [facility] Lymphocytes Percent Manual 16(L) 20 - 40 % [facility] Atypical Lymphs Percent Manual 1 0 - 6 % [facility] Monocytes Percent Manual 8 2 - 11 % [facility] EOSINOPHILS % MANUAL 3 0 - 4 % [facility] NEUTROPHILS ABSOLUTE MANUAL 4.0 2.0 - 8.3 X10*3/uL [facility] LYMPHOCYTES ABSOLUTE MANUAL 0.9(L) 1.2 - 4.9 X10*3/uL [facility] Atypical Lymph Absolute Manual 0.1 x10*3/uL [facility] MONOCYTES ABSOLUTE MANUAL 0.4 0.1 - 1.2 X10*3/uL [facility] EOSINOPHILS ABSOLUTE MANUAL 0.2 0.0 - 0.4 X10*3/uL [facility] Platelet Estimate NORMAL NORMAL [facility] Platelet Morphology Comment NORMAL [facility] RBC Morphology NOTED [facility] Hypochromasia 1+ (5-14) /OIF [facility] Microcytosis 1+ (5-14) /OIF [facility] 06/11/2025 1:41 AM EST 06/11/2025 1:44 AM EST us Generic External Data Provider LAB BLOOD ORDERAB LES Final Result [facility] [address] [place], [place] [phone] * (ABNORMAL) Glucose, Whole Blood (06/11/2025 1:29 AM EST) Glucose, Whole Blood >600() 60 - 115 mg/dL [facility] Comment:METER #: [id number] 06/11/2025 1:29 AM EST 06/11/2025 1:32 AM EST us Generic External Data Provider LAB BLOOD ORDERAB LES Final Result Performing Organization Address [facility] Co de Phone Number [facility] [address] [place] [address] [phone] * (ABNORMAL) Glucose, Whole Blood (06/11/2025 1:23 AM EST) Glucose, Whole Blood >600(HH) 60 - 115 mg/dL [facility] Comment:METER #: [id number] 06/11/2025 1:23 AM EST 06/11/2025 1:29 AM EST us Generic External Data Provider LAB BLOOD ORDERAB LES Final Result Performing Organization Address [facility] Co de Phone Number [facility] [address] [place] [phone] documented in this encounter Visit Diagnoses Not on filedocumented in this encounter Additional Health Concerns Assessment Noted Time PHQ-9 Depression Total Score: 14 025 2:41 PM EDT documented as of this encounter Care Teams Cocoa Butter Filter Operator Relationship Specialty Start Date End Date Amanda Watkins MD [address] [place] [address] PCP - General Family Medicine 04/07/19 Hiro Ram FNP [address] [place] [address] 90535 Nurse Practitioner Family Medicine 07/06/23 Raad Arias, Carlos [address] [place] [address] [phone] Pharmacist Internal Medicine 10/19/24 [facility] 03/08/25 documented as of this encounter
--- OUTSIDE RECORDS SUMMARY | 2025-06-12 17:40 | XMS_ITS | Encounter Summary ---
Author Organization [employer] Address 75 [facility] 7t [place] [address] Care Team Providers Care Roller Mill Tender Name Role Phone Amanda Watkins MD Primary Care Provide r Hiro Ram SQL SERVER CONSULTANT Unavailable Unavailable Raad Arias PharmD Unavailable [phone] Reason for Visit * Reason Comments Med Refill Encounter Details Date Type Department Care Team (Late st Contact Info) Description 09/27/2024 Refill [facility]INE [address] [place] [address] Ann Kulkarni DO [address] [place] [address] Social History Tobacco Use Types Packs/Day Years [...] Office Visit [facility] [address] [place] [phone] Amanda Watkins MD [address] [place] [phone] 09/21/2025 10:00 AM EST Telemedicine [facility] [address] [place] [address] Kayley Alanis RN documented as of this encounter Visit Diagnoses Not on filedocumented in this encounter Additional Health Concerns Assessment Noted Time PHQ-9 Depression Total Score: 0 09/01/19 25 1:18 PM EST documented as of this encounter Care Teams Roller Mill Tender Relationship Specialty Start Date End Date Amanda Watkins MD [address] [place] [address] PCP - General Family Medicine 04/07/19 Hiro Ram FNP [address] [place] [address] 47807 Nurse Practitioner Family Medicine 07/06/23 Raad Arias, PharmD 230 [facility] [place] [phone] Pharmacist Internal Medicine 10/19/24 [facility] 08/10/24 03/12/25 [facility] 03/08/25 documented as of this encounter
--- OUTSIDE RECORDS SUMMARY | 2025-06-12 17:40 | XMS_ITS | Encounter Summary ---
Author Organization [employer] Address 75 [facility] 7t [place] [address] Care Team Providers Care Transit Authority Police Officer Name Role Phone Amanda Watkins MD Primary Care Provide r Hiro Ram Unavailable Unavailable Raad Arias PharmD Unavailable [phone] Reason for Visit * Reason Comments Med Refill Encounter Details Date Type Department Care Team (Late st Contact Info) Description 11/18/2023 Refill [facility]INE [address] [place] [address] Hiro Ram FNP Social History Tobacco Use [...] Description 07/09/2025 3:30 PM EST Office Visit [facility] [address] [place] [phone] Amanda Watkins MD [address] [place] [address] 09/21/2025 10:00 AM EST Telemedicine [facility] [address] [place] [phone] Kayley Alanis RN documented as of this encounter Visit Diagnoses Not on filedocumented in this encounter Additional Health Concerns Assessment Noted Time PHQ-9 Depression Total Score: 8 07/19/20 23 11:34 AM EST documented as of this encounter Care Teams Transit Authority Police Officer Relationship Specialty Start Date End Date Amanda Watkins MD [address] [place] [phone] PCP - General Family Medicine 04/07/19 Hiro Ram FNP [address] [place] [address]997 Nurse Practitioner Family Medicine 07/06/23 Raad Arias, TheaD [address] [place] [phone] Pharmacist Internal Medicine 10/19/24 [facility] [place] [facility] 07/03/22 08/16/24 Ja [facility] 08/10/24 03/12/25 [facility] 03/08/25 documented as of this encounter
--- OUTSIDE RECORDS SUMMARY | 2025-06-12 17:40 | XMS_ITS | Encounter Summary ---
Author Organization [employer] Address 75 [facility] 7t [place] [address] Care Team Providers Care Display Designer Outside Name Role Phone Amanda Watkins MD Primary Care Provide r Hiro Ram LEAN SIX SIGMA SENIOR SPECIALIST Unavailable Unavailable Raad Arias PharmD Unavailable [phone] Reason for Visit * Reason Comments Med Refill Encounter Details Date Type Department Care Team (Late st Contact Info) Description 10/16/2024 Refill [facility] [address] [place] [address] Amanda Watkins MD [address] [place] [address] Chronic bilateral low back pain with bilateral [...] Description 07/09/2025 3:30 PM EST Office Visit [facility] [address] [place] [phone] Amanda Watkins MD [address] [place] [address] 09/21/2025 10:00 AM EST Telemedicine [address] [address] Kayley Alanis RN documented as of this encounter Visit Diagnoses Diagnosis Chronic bilateral low back pain with bilateral sciatica documented in this encounter Additional Health Concerns Assessment Noted Time PHQ-9 Depression Total Score: 0 09/01/19 25 1:18 PM EST documented as of this encounter Care Teams Display Designer Outside Relationship Specialty Start Date End Date Amanad Watkins MD [address] [place] [phone] PCP - General Family Medicine 04/07/19 Hiro Ram FNP [address] [place] [address]646 Nurse Practitioner Family Medicine 07/06/23 Raad Arias, PharmD [address] [place] [address] CORINNE Peres [phone] Pharmacist Internal Medicine 10/19/24 Ja [facility] 08/10/24 03/12/25 [facility] 03/08/25 documented as of this encounter
--- OUTSIDE RECORDS SUMMARY | 2025-06-12 17:41 | XMS_ITS | Encounter Summary ---
Author Organization [employer] Address 75 [facility] 7t [place] [address] Care Team Providers Care Director Appointment Name Role Phone Amanda Watkins MD Primary Care Provide r Hiro Ram BLOW MOLDER Unavailable Unavailable Raad Arias PharmD Unavailable [phone] Reason for Visit * Reason Onset Date Comments Nurse Triage 04/17/2025 Encounter Details Date Type Department Care Team ([facility] st Contact Info) Description 04/17/2025 Telephone [facility] MEDICINE [address] [place] [address] Amanda Watkins MD [address] [place] [address] Nurse Triage Social History Tobacco Use Types [...] Mary Lou Cisneros to triage below at [phone]. No answer, line not available. . Call to all other alterante numbers. Left VM to return call. Number listed as contact in [facility] visit notes as [phone]. No answer, LVM to return call to [facility] triage line. Pt has my chart [...] crying screaming in pain. Contact musa at [phone] documented in this encounter Plan of Treatment Upcoming Encounters Date Type Department Care Team (Late st Contact Info) Description 07/09/2025 3:30 PM EST Office Visit [facility] MED[facility]INE [address] [place] [phone] Amanda Watkins MD [address] [place] [address] 09/21/2025 10:00 AM EST Telemedicine [facility] [address] [place] [address] Kayley Alanis, PHILLIP documented as of this encounter Visit Diagnoses Not on filedocumented in this encounter Additional Health Concerns Assessment Noted Time PHQ-9 Depression Total Score: 14 025 2:41 PM EDT documented as of this encounter Care Teams Director Appointment Relationship Specialty Start Date End Date Amanda Watkins MD [address] [place] [address] [phone] PCP - General Family Medicine 04/07/19 Hiro Ram FNP [address] [place] [address] Nurse Practitioner Family Medicine 07/06/23 Raad Arias, TheaD [address] [place] [phone] Pharmacist Internal Medicine 10/19/24 [facility] 03/08/25 documented as of this encounter
--- OUTSIDE RECORDS SUMMARY | 2025-06-12 17:41 | XMS_ITS | Encounter Summary ---
Author Organization [employer] Address 75 [facility] 7t [place] [address] Care Team Providers Care Environmental Resource Specialist Name Role Phone Amanda Watkins MD Primary Care Provide r Hiro Ram CLINICAL SUPPORT NURSE Unavailable Unavailable Raad Arias PharmD Unavailable [phone] Reason for Visit * Reason Onset Date Comments Hospital Follow-up 03/23/2024 Encounter Details Date Type Department Care Team (Late st Contact Info) Description 03/23/2024 Telephone [facility] MEDICINE [address] [place] [address] Amanda Watkins MD [address] [place], [place] [phone] Hospital Follow-up Social History Tobacco Use Types [...] from pt requesting a HDF appt. Hospital: [facility] Date of admission: 03/18 Discharge date: 03/21 Diagnosed: Cellulitis documented in this encounter Plan of Treatment Upcoming Encounters Date Type Department Care Team (Late st Contact Info) Description 07/09/2025 3:30 PM EST Office Visit [facility] MEDICINE [address] [place] [phone] Amanda Watkins MD [address] [place] [address] 09/21/2025 10:00 AM EST Telemedicine [facility] [address] [place] [address] Kayley Alanis RN documented as of this encounter Visit Diagnoses Not on filedocumented in this encounter Additional Health Concerns Assessment Noted Time PHQ-9 Depression Total Score: 10 024 3:23 PM EDT documented as of this encounter Care Teams Environmental Resource Specialist Relationship Specialty Start Date End Date Amanda Watkins MD [address] [place] [address] PCP - General Family Medicine 04/07/19 Hiro Ram FNP [address] [place] [address] Nurse Practitioner Family Medicine 07/06/23 Raad Arias, TheaD [address] [place] [address] Pharmacist Internal Medicine 10/19/24 [facility] 07/03/22 08/16/24 Ja [facility] 08/10/24 03/12/25 [facility] 03/08/25 documented as of this encounter
--- OUTSIDE RECORDS SUMMARY | 2025-06-12 17:41 | XMS_ITS | Encounter Summary ---
Author Organization [employer] Address 75 [facility] 7t [place] [address] Care Team Providers Care Otolaryngology Physician Name Role Phone Amanda Watkins MD Primary Care Provide r Hiro Ram DRILLING ENGINEERING MANAGER Unavailable Unavailable Raad Arias PharmD Unavailable [phone] Reason for Visit * Reason Onset Date Comments Hospital Follow-up 04/04/2024 Encounter Details Date Type Department Care Team (Late st Contact Info) Description 04/04/2024 Telephone [facility] MEDICINE [address] [place] [address] Amanda Watkins MD [address] [place], [place] [phone] Hospital Follow-up Social History Tobacco Use Types [...] from pt requesting a HDF appt. Hospital: [facility] Date of admission: 03/18 Discharge date: 03/21 Diagnosed: Cellulitis documented in this encounter Plan of Treatment Upcoming Encounters Date Type Department Care Team (Late st Contact Info) Description 07/09/2025 3:30 PM EST Office Visit [address] [address] Amanda Watkins MD [address] [place] [address] 09/21/2025 10:00 AM EST Telemedicine [facility] MED[facility] [address] [place] [phone] Kayley Alanis RN documented as of this encounter Visit Diagnoses Not on filedocumented in this encounter Additional Health Concerns Assessment Noted Time PHQ-9 Depression Total Score: 10 024 3:23 PM EDT documented as of this encounter Care Teams Otolaryngology Physician Relationship Specialty Start Date End Date Amanda Watkins MD [address] [place] [address] PCP - General Family Medicine 04/07/19 Hiro Ram FNP [address] [place] [address] Nurse Practitioner Family Medicine 07/06/23 Raad Arias, TheaD [address] [place] [phone] Pharmacist Internal Medicine 10/19/24 [facility] 07/03/22 08/16/24 Ja [facility] 08/10/24 03/12/25 [facility] 03/08/25 documented as of this encounter
--- OUTSIDE RECORDS SUMMARY | 2025-06-12 17:41 | XMS_ITS | Encounter Summary ---
Author Organization [employer] Address [address] [facility] 7t [place] [address] Care Team Providers Care Communication Specialist Name Role Phone Amanda Watkins MD Primary Care Provide r Hiro Ram HEAVY EQUIPMENT ENGINE MECHANIC Unavailable Unavailable Raad Arias PharmD Unavailable [phone] Reason for Visit * Reason Onset Date Comments Med Refill 01/03/2025 Encounter Details Date Type Department Care Team (Late st Contact Info) Description 01/03/2025 Refill [facility] [address] [place] [address] Amanda Watkins MD [address] [place] [address] Chronic bilateral low back pain with bilateral [...] not with her 12/10/23 - [facility] Tele JUDO TEACHER RV * Telephone Encounter - Sky Sánchez - 01/03/2025 1:12 PM EDT TC from pt requesting medication refill. Medications needing refill: oxyCODONE-acetaminophen (Percocet) 5-325 MG tablet To be sent to: [facility] - [place], [place] - [address] documented in this encounter Plan of Treatment Upcoming Encounters Date Type Department Care Team (Late st Contact Info) Description 07/09/2025 3:30 PM EST Office Visit [facility] [address] [place] [phone] Amanda Watkins MD [address] [place] [phone] 09/21/2025 10:00 AM EST Telemedicine [address] [address] Kayley Alanis, PHILLIP documented as of this encounter Visit Diagnoses Diagnosis Chronic bilateral low back pain with bilateral sciatica documented in this encounter Additional Health Concerns Assessment Noted Time PHQ-9 Depression Total Score: 0 09/01/19 1:18 PM EST documented as of this encounter Care Teams Communication Specialist Relationship Specialty Start Date End Date Amanda Watkins MD [address] [place] [phone] PCP - General Family Medicine 04/07/19 Hiro Ram FNP [address] [place] [address] Nurse Practitioner Family Medicine 07/06/23 Raad Arias, Carlos [address] [place] [address] Pharmacist Internal Medicine 10/19/24 Ja A 08/10/24 03/12/25 [facility] 03/08/25 documented as of this encounter
--- OUTSIDE RECORDS SUMMARY | 2025-06-12 17:41 | XMS_ITS | Encounter Summary ---
Author Organization [employer] Address [address] [facility] 7t [place] [address] Care Team Providers Care Mica Washer Gluer Name Role Phone Amanda Watkins MD Primary Care Provide r Hior Ram EXTRUSION FORMER Unavailable Unavailable Raad Arias PharmD Unavailable [phone] Reason for Visit * Reason Onset Date Comments Durable Medical Equipment 07/26/2024 Encounter Details Date Type Department Care Team (Late st Contact Info) Description 07/26/2024 Telephone [facility] [address] [place] [address] Amanda Watkins MD [address] [place] [address] Durable Medical Equipment Social History Tobacco Use [...] Description 07/09/2025 3:30 PM EST Office Visit [facility] [address] [place] [address] Amanda Watkins MD [address] [place] [address] 09/21/2025 10:00 AM EST Telemedicine [facility] [address] [place] [address] [phone] Kayley Alanis RN documented as of this encounter Visit Diagnoses Not on filedocumented in this encounter Additional Health Concerns Assessment Noted Time PHQ-9 Depression Total Score: 10 024 3:23 PM EDT documented as of this encounter Care Teams Mica Washer Gluer Relationship Specialty Start Date End Date Amanda Watkins MD [address] [place] [address] PCP - General Family Medicine 04/07/19 Hiro Ram FNP [address] [place] [address] Nurse Practitioner Family Medicine 07/06/23 Raad Arias, TheaD [address] [place] [address] Pharmacist Internal Medicine 10/19/24 [facility] 07/03/22 08/16/24 Ja [facility] 08/10/24 03/12/25 [facility] 03/08/25 documented as of this encounter
--- OUTSIDE RECORDS SUMMARY | 2025-06-12 17:41 | XMS_ITS | Encounter Summary ---
Author Organization [employer] Address [address] [facility] 7t [place] [address] Care Team Providers Care Weight Calculator Name Role Phone Amanda Watkins MD Primary Care Provide r Hiro Ram FLARER Unavailable Unavailable Raad Arias PharmD Unavailable [phone] Encounter Details Date Type Department Care Team (Late st Contact Info) Description 06/27/2024 Orders Only [facility] MED[facility]INE [address] [place] [address] Amanda Watkins MD [address] [place] [address] Social History Tobacco Use Types Packs/Day Years [...] Description 07/09/2025 3:30 PM EST Office Visit [facility] [address] [place] [phone] Amanda Watkins MD [address] [place] [address] 09/21/2025 10:00 AM EST Telemedicine [address] [address] Kayley Alanis RN documented as of this encounter Visit Diagnoses Not on filedocumented in this encounter Additional Health Concerns Assessment Noted Time PHQ-9 Depression Total Score: 10 024 3:23 PM EDT documented as of this encounter Care Teams Weight Calculator Relationship Specialty Start Date End Date Amanda Watkins MD [address] [place] [phone] PCP - General Family Medicine 04/07/19 Hiro Ram FNP [address] [place] [address] Nurse Practitioner Family Medicine 07/06/23 Raad Arias, TheaD [address] [place] [phone] Pharmacist Internal Medicine 10/19/24 [facility] 07/03/22 08/16/24 Ja [facility] 08/10/24 03/12/25 [facility] 03/08/25 documented as of this encounter
--- OUTSIDE RECORDS SUMMARY | 2025-06-12 17:41 | XMS_ITS | Encounter Summary ---
Author Organization [employer] Address [address] [facility] 7t [place] [address] Care Team Providers Care Manifold Operator Name Role Phone Amanda Watkins MD Primary Care Provide r Hiro Ram TOURIST AGENT Unavailable Unavailable Raad Arias PharmD Unavailable [phone] Reason for Visit * Reason Onset Date Comments Call Back Request 06/05/2025 Encounter Details Date Type Department Care Team ([facility] Contact Info) Description 06/05/2025 Telephone [facility] [address] [place] [address] Amanda Watkins MD [address] [place] [address] Call Back Request Social History Tobacco Use [...] Telephone Encounter - Leann Cm RN - 06/11/2025 9:13 AM EST Pt. In ED this am, going to be admitted for Poorly controlled diabetes mellitus, Acute encephalopathy, Histrionic behavior. Glucose upon arrival 666. Appointment Today cancelled, pt. To f/up upon discharge * Telephone Encounter - Leann Cm RN [...] insulin as [facility]NA does not visit at thesame time of day or week and is [...] to be faxed. Please contact Musa at [phone]. . documented in this encounter Plan of Treatment Upcoming Encounters Date Type Department Care Team (Late st Contact Info) Description 07/09/2025 3:30 PM EST Office Visit [facility] MED[facility]INE [address] [place] [phone] Amanda Watkins MD [address] [place] [address] 09/21/2025 10:00 AM EST Telemedicine [facility] [address] [place] [address] Kayley Alanis RN documented as of this encounter Visit Diagnoses Not on filedocumented in this encounter Additional Health Concerns Assessment Noted Time PHQ-9 Depression Total Score: 14 025 2:41 PM EDT documented as of this encounter Care Teams Manifold Operator Relationship Specialty Start Date End Date Amanda Watkins MD [address] [place] [address] PCP - General Family Medicine 04/07/19 Hiro Ram FNP [address] [place] [address] Nurse Practitioner Family Medicine 07/06/23 Raad Arias, TheaD [address] [place] [address] Pharmacist Internal Medicine 10/19/24 [facility] 03/08/25 documented as of this encounter
--- OUTSIDE RECORDS SUMMARY | 2025-06-12 17:41 | XMS_ITS | Encounter Summary ---
Author Organization [employer] Address [address] [facility] 7t [place] [address] Care Team Providers Care School Psychology Specialist Name Role Phone Amanda Watkins MD Primary Care Provide r Hiro Ram PURCHASING EXPEDITOR Unavailable Unavailable Raad Arias PharmD Unavailable Encounter Details Date Type Department Care Team (Late st Contact Info) Description 12/22/2024 Orders Only [facility] MEDICINE [address] [place] [address] Amanda Watkins MD [address] [place] [address] Social History Tobacco Use Types Packs/Day Years [...] Description 07/09/2025 3:30 PM EST Office Visit [address] [address] Amanda Watkins MD [address] [place] [address] 09/21/2025 10:00 AM EST Telemedicine [address] [address] Kayley Alanis RN documented as of this [...] AM EDT Narrative 01/05/2025 9:59 AM EDT [address] [address] XRay Report Signed Patient: Mary Lou Godwin MR#: [id number] : 1950 Acct:[id number] Age/Sex: 74 / F ADM Date: 01/05/25 Loc: HO.ED Attending Dr: Ordering Physician: Yelena Alvarez MD Date of Service: 01/05/25 Procedure(s): XR humerus RT Accession Number(s): [id number] cc: Amanda Watkins MD; Yelena Alvarez MD [...] 01/05/25 0956 DD/ 0935 TD/TT: 01/05/25 0948 Car Tester: Procedure Note Donotuseinterpreter, Image - 01/05/[address] [address] XRay Report Signed Patient: Mary Lou Godwin ZMR#: M [id number] : 1950cct:[id number] Age/Sex: 74 / FADM Date: 01/05/25 Loc: .ED Attending Dr: Ordering Physician: Yelena Alvarez MD Date of Service: 01/05/25 Procedure(s): XR humerus RT Accession Number(s): [id number] cc: Amanda Watkins MD; Yelena Alvarez MD [...] OV> 01/05/25 0956 DD/ TD/TT: 01/05/25 0948 Car Tester: [facility] External Provider IMG XR PROCEDURES Edited Result - Final * XR Shoulder 2+ Views Right (01/05/2025 8:27 AM EDT) Anatomical Region Laterality Modality Upper Extremities, Shoulder Right Radi ographic Imaging 01/05/2025 8:27 AM EDT Narrative 01/05/2025 9:59 AM EDT [place] [address] XRay Report Signed Patient: Mary Lou Godwin MR#: M [id number] : 1950 Acct:[id number] Age/Sex: 74 / F ADM Date: 01/05/25 Loc: HO.ED Attending Dr: Ordering Physician: Yelena Alvarez MD Date of Service: 01/05/25 Procedure(s): XR shoulder RT min 2V Accession Number(s): [id number] cc: Amanda Watkins MD; Yelena Alvarez MD [...] MD Signed By: <Electronically signed by Dilip aHmmer MD in OV> 01/05/25955 DD/ 6 TD/TT: 01/05/25947 Car Tester: Procedure Note Donotuseinterpreter, Image - 01/05/[address] [address] XRay Report Signed Patient: Mary Lou Godwin ZMR#: M [id number] : 9Acct:[id number] Age/Sex: 74 / FADM Date: 01/05/25 Loc: .ED Attending Dr: Ordering Physician: Yelena Alvarez MD Date of Service: 01/05/25 Procedure(s): XR shoulder RT min 2V Accession Number(s): [id number] cc: Amanda Watkins MD; Yelena Alvarez MD [...] in OV> 01/05/25955 DD/ 6 TD/TT: 01/05/25947 Car Tester: [facility] External Provider IMG XR PROCEDURES Edited Result - Final * XR Elbow 1-2 Views Right (01/05/2025 8:27 AM EDT) Anatomical Region Laterality Modality Upper Extremities, Elbow Right Radiogr aphic Imaging 01/05/2025 8:27 AM EDT Narrative 01/05/2025 9:57 AM EDT [address] [address] XRay Report Signed Patient: Mary Lou Godwin Z MR#: M [id number] : 1950 Acct:[id number] Age/Sex: 74 / F ADM Date: 01/05/25 Loc: HO.ED Attending Dr: Ordering Physician: Yelena Alvarez MD Date of Service: 01/05/25 Procedure(s): XR elbow RT 2V Accession Number(s): [id number] cc: Amanda Watkins MD; Yelena Alvarez MD [...] 01/05/25 0954 DD/ 0827 TD/TT: 01/05/25 0948 Car Tester: Procedure Note Donotuseinterpreter, Image - 01/05/[address] [address] XRay Report Signed Patient: Mary Lou Godwin ZMR#: M [id number] : 1950cct:[id number] Age/Sex: 74 / FADM Date: 01/05/25 Loc: HO.ED Attending Dr: Ordering Physician: Yelena Alvarez MD Date of Service: 01/05/25 Procedure(s): XR elbow RT 2V Accession Number(s): [id number] cc: Amanda Watkins MD; Yelena Alvarez MD [...] Hammer MD 01/05/2025 09:54 AM EDT RP Workstation: [id number] Dictated By: Dilip Hammer MD Signed By: <Electronically signed by Dilip Hammer MD in OV> 01/05/25 0954 DD/ TD/TT: 01/05/2548 Car Tester: [facility] External Provider IMG XR PROCEDURES Edited Result - Final documented in this encounter Visit Diagnoses Not on filedocumented in this encounter Additional Health Concerns Assessment Noted Time PHQ-9 Depression Total Score: 0 09/01/19 1:18 PM EST documented as of this encounter Care Teams School Psychology Specialist Relationship Specialty Start Date End Date Amanda Watkins MD [address] [place] [address] PCP - General Family Medicine 04/07/19 Hiro Ram FNP [address] [place] [address] Nurse Practitioner Family Medicine 07/06/23 Raad Arias PharmD [address] [place] [address] Pharmacist Internal Medicine 10/19/24 [facility] 08/10/24 03/12/25 [facility] 03/08/25 documented as of this encounter
[2025-06-12 17:42] VITALS: BP 143/65; PULSE 60; RESP 18; TEMP 36.7
[2025-06-12 18:07] VITALS: O2SAT 99
[2025-06-12 19:00] LABS: Glucose, Whole Blood 387 mg/dL (60-115)
[2025-06-12 19:09] LABS: Troponin-I High Sensitivity 8.9 ng/L (<3.5-17.0)
[2025-06-12 20:14] VITALS: BP 121/55; PULSE 63; RESP 19; TEMP 36.6; O2SAT 98
--- NOTE | 2025-06-12 22:20 | MHC.CM.ED ---
Addendum entered by Massiel Valenzuela 06/12/25 22:25: Pt was also here yesterday for hyperglycemia. And refused STR at that time. Will hold on referrals pending patient waking and consenting to rehab. Original Note: CM attempted to meet with patient with back office medical assistant, as patient is Azeri speaking. CM was unable to wake patient enough to continue with interview. Pt opened her eyes and fell back to sleep. Pt has been in ED on 06/03,05/29,05/23 and today for huperglycemia and arm pain. Today had hyperglycemia and a fall out of bed. Pt is active with [facility]. Pt refused STR on last ED visit. PT is pending. Pt has [employer] insurance. CM will place local referrals pending PT evaluation. Unsure if patient will be agreeable to STR when she wakes. Pt will need formal CM interview when she wakes.
--- NOTE | 2025-06-12 22:44 | PC.NURSE ---
Pt resting on stretcher. Pt was asleep, when woken pt denies pain. Pt opened eyes for a minute then goes back to sleep. Respirations equal and unlabored. Skin pwd. VSS. Purewick in place. Call jacome within reach.
[2025-06-12 23:18] VITALS: BP 143/67; PULSE 60; RESP 16; TEMP 36.7; O2SAT 99
[2025-06-13] VITALS (8 sets, daily range): BP systolic 134–158; BP diastolic 48–84; PULSE 48–64; RESP 13–18; TEMP 36.4–36.6; O2SAT 96–100
[2025-06-13] MEDS: oxyCODONE HCl Immed Release 5 MG TABLET PO (02:41)
--- NOTE | 2025-06-13 02:43 | PC.NURSE ---
Pt reporting 8/10 pain in right leg. Pt medicated as charted.
--- NOTE | 2025-06-13 03:45 | PC.NURSE ---
Reports reports decreased pain as receiving pain medication. Pt med rec completed using medical record and patient. Pt was able to confirm some of her daily meds.
--- NOTE | 2025-06-13 05:59 | PC.NURSE ---
Pt reporting anxiety, requesting anxiety medication. Pt medicated as charted.
[2025-06-13 06:05] LABS: Glucose, Whole Blood 315 mg/dL (60-115)
[2025-06-13 06:36] LABS: Appearance Urine Clear; Glucose Urine UA >=1000 mg/dL (Negative); PH 5.5 (5.0-9.0); Specific Gravity - Urine 1.020 (1.005-1.025); UMIC TRIGGER UACC YES
[2025-06-13 07:18] LABS: Glucose, Whole Blood 317 mg/dL (60-115)
[2025-06-13] MEDS: Calcium Oyster Shell Elemental 500 MG TABLET PO (09:36)
[2025-06-13] MEDS: Insulin Glargine,Hum.rec.anlog 100 UNIT/ML 10 ML VIAL 44 UNIT SUBCUT (09:38)
--- NOTE | 2025-06-13 10:09 | MHC.CM.ED ---
Patient remains in ER. Physical therapy eval completed. Short term rehab is recommended. Met with patient and lens grinder in regards to discharge planning. Patient continues to decline STR. T/W verbalized concern for patient's safety due to 5 ER visits in the past 30 days. Patient verbalizes understanding but continues to insist on returning home. Patient is active with [facility]. Julia COLEMAN booked for 11am. [facility] with chart. Patient, Janelle RN and Zahida GONZALEZ aware. Continue to monitor for d/c needs.
== END 2025-06-13 11:46 | disposition home or self-care (01) ==
PROVIDERS: Physician Assistant Medical; Emergency Provider Emergency Medicine; PCP Internal Medicine
DX: Z04.3 Encounter for examination and observation following other accident (principal); E11.65 Type 2 diabetes mellitus with hyperglycemia; R51.9 Headache, unspecified; M25.561 Pain in right knee; E11.22 Type 2 diabetes mellitus with diabetic chronic kidney disease; I12.9 Hypertensive chronic kidney disease with stage 1 through stage 4 chronic kidney disease, or unspecified chronic kidney disease; N18.30 Chronic kidney disease, stage 3 unspecified; J45.909 Unspecified asthma, uncomplicated; Z79.4 Long term (current) use of insulin; Z79.899 Other long term (current) drug therapy; Z91.81 History of falling; Z99.81 Dependence on supplemental oxygen; Z88.5 Allergy status to narcotic agent
CPT/HCPCS: 36415; 70450; 72125; 73564; 80053; 81001; 82010; 82140; 82803; 82947; 84484; 85025; 93005; 96361; 96374; 97162; 99285; J0131

== ENCOUNTER → 2025-06-12 14:17 | Outpatient (BNV) | payer OTHER, SELFPAY | PROVIDERS: Emergency Provider Emergency Medicine; PCP Internal Medicine; Visit Provider Radiology Diagnostic Radiology | DX: M47.812 Spondylosis without myelopathy or radiculopathy, cervical region (principal); E04.1 Nontoxic single thyroid nodule; S09.90XA Unspecified injury of head, initial encounter; G31.9 Degenerative disease of nervous system, unspecified; M17.11 Unilateral primary osteoarthritis, right knee; Z04.3 Encounter for examination and observation following other accident | CPT/HCPCS: 70450; 72125; 73564 ==

== ENCOUNTER → 2025-06-12 14:36 | Outpatient (BNV) | payer OTHER, SELFPAY | PROVIDERS: Emergency Provider Emergency Medicine; PCP Internal Medicine; Visit Provider Internal Medicine Cardiovascular Disease | DX: I45.10 Unspecified right bundle-branch block (principal); Z04.3 Encounter for examination and observation following other accident | CPT/HCPCS: 93010 ==

== ENCOUNTER 2025-06-27 10:30 | Outpatient (AMB) | payer OTHER, SELFPAY ==
--- OUTSIDE RECORDS SUMMARY | 2025-03-06 05:50 | XMS_ITS ---
Author Organization [facility] Address [address] [place] [address] Care Team Providers Care Carbide Die Maker Name Role Phone Amanda Adame M.D. Primary Care Provider Geoff Leon Jr, João Marie REASON FOR VISIT anemia Encounters Encounter Location Date Provider Diagnosis [facility] [place] [address] [place], [place] [id number] 03/06/2025 João Leon Jr Plan Of Treatment Next Appt Details Provider Name:João yañez Jr, 07/26/2025 02:15:00 PM, [address], [address], [place], [address], Progress Notes * JP MORGANDOB:[birth year] (74 yo F)Acc No.[id number]:03/06/2025 EGD and COL/MAC Patient: JP HINKLE Provider: Shannan Leon MD :1950 A ge:74 Y S ex:Female Date:03/06/2025 Address:[address] [place] [address] [address] , [place], [place] Pcp:Amanda Adame M.D. Subjective: * Chief Complaints: * A nemia * The named appointment provid er may or may not be the originator of this progress note, and it is not deemed complete until electronically signed by the appointment provider. Sign off status: Pending * Provider: Shannan Leon MD Date: 0 03/06/2025 Generated for Selene garcia/Thad/eTransmitting on: 1 08/27/2024 08:23 PM EST
--- NOTE | 2025-06-27 11:35 | MHC.OFFVIS ---
Vital Signs 06/27/25 11:38 Height 5 ft 1 in Weight 245 lb BMI 46.3 Intake Visit Reasons: New prob- left hand pain fell 06/04/25 Intake Note: Mary Lou 74 yr old left hand dominant female who is retired, presents today with her son Anatoliy, for a new problem visit for her left hand pain s/p falling down on 06/04/25. States she was seen at [facility] same day where xrays were taken. No braces were given. Today states she has a hx of O.A in hands and has deformity of her fingers. The worse one one currently is her left index finger. States this finger hurts all day everyday. No injury she can recall. Denies numbness, tingling or locking of any finger. HX of DM. Allergies codeine (CODEINE) Allergy (Intermediate, Verified 06/27/25 11:44) HALLUCINATIONS HPI HPI New prob- left hand pain fell 06/04/25: Details: Mary Lou 74 yr old left hand dominant female who is retired, presents today with her son Anatoliy, for a new problem visit for her left hand pain s/p falling down on 06/04/25. She states she was seen at [facility] same day where xrays were taken. No braces were given. Today states she has a hx of O.A in hands and has deformity of her fingers. She notes her currently pain is her left index finger. States this finger hurts all day everyday. No injury she can recall. Denies numbness, tingling or locking of any finger. HX of DM [facility] Medical History (Updated 06/27/25 @ 12:19 by Veda Martel) Left hand pain Septic joint of right shoulder region Septic arthritis Urinary incontinence (HFpEF) heart failure with preserved ejection fraction Anxiety Insomnia CKD (chronic kidney disease) CKD stage 3 due to type 2 diabetes mellitus Leg abrasion Abuse of non-prescription analgesics Type 2 diabetes mellitus with unspecified complications Other and unspecified hyperlipidemia Essential hypertension Atherosclerotic cardiovascular disease Urgency incontinence Osteoporosis Arthritis Asthma Hypertension Fibromyalgia Diabetes mellitus Surgical History H/O tubal ligation History of hernia repair Social History (Updated 06/27/25 @ 11:45 by TERI Hanson) Household Members: Children Household Members Other:: son Housing: Apartment Are you a primary landcare facilitator to a significant other at home: No Do you presently have visiting nurse or other home services: No Alcohol intake: never 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 Patient Tobacco Use Status: Never used Tobacco e-Cigarette/Vaping Use: Never Used Advance Directives Date on File: 04/07/24 service: No Current occupational status: disabled Current occupation: left hand Sexual orientation: Straight/Heterosexual Physical Exam Vital Signs: BMI result Body Mass Index 46.3 Const General: cooperative, healthy appearing and no acute distress Orientation/consciousness: oriented to person and oriented to place HEENT Head: Yes normocephalic and Yes atraumatic Eyes EOM: EOMs intact bilaterally Resp Effort & Inspection: normal respiratory effort and able to speak in complete sentences Cardio Jugular venous distension: no JVD Skin General skin exam: turgor normal Rashes: no rashes Neuro General: oriented to person and oriented to place Extrem Other: Evaluation of left Upper Extremity: Neuro: Median, ulnar, radial nerves motor and sensory intact. Vascular: Cap refill brisk. ROM: Can bring fingers closed to a fist and back out to full or nearly full extension. She does appear to have a mallet finger of the left index finger and of the right index finger as well. The left index finger D IP joint is also somewhat tender in his mildly unstable to radial and ulnar testing with a small amount of crepitus secondary to her arthritic changes. Skin: No lacerations or abrasions. General: No eccymosis. No erythema or evidence of infection. Radiographs: Three views of the left hand from 06/27/2025 were taken and reviewed by me today in clinic. They show no fractures or dislocations. She does have significant osteoarthritic changes in the index and ring finger D IP joints. She also appears to have basal joint osteoarthritis, and some small fragments of bone off the radial base of the small finger proximal phalanx possibly consistent with an old injury. Psych Appearance: grossly normal Affect: normal affect Attitude: cooperative Assessment & Plan Assessment & Plan (1) Left hand pain: Code(s): M79.642 - Pain in left hand Category: Medical Plan Assessment and plan: 1. 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 Right index finger D IP joint osteoarthritis and mallet finger I educated her about these conditions We did discuss operative and non operative treatment options. I did talk to her about a possible arthrodesis. She is not interested in surgery. We then talked about non operative management including splinting when it is painful. We provided her with a volar splint that would allow for PIP motion to use when symptomatic. She is happy with the current plan and will follow up PRN Orders: Orders XR hand LT min 3V Today M79.642 - Pain in left hand Coding Level of Care Code New Pt Level 4 (16147) Diagnoses Left hand pain M79.642
[2025-06-27 11:38] VITALS: BMI 46.3
--- OUTSIDE RECORDS SUMMARY | 2025-06-27 20:24 | XMS_ITS | Continuity of Care Document ---
Author Name [facility], Medical Address [address] [place] [address] Organization Unknown Address [address] [place] [address] Medications No known medications Problems No known problems
--- OUTSIDE RECORDS SUMMARY | 2025-06-27 20:24 | XMS_ITS | Encounter Summary ---
Author Organization [facility] Address [address] [place] [address] Encounters * CPT with Medical [facility] at [facility] on 2025-03-23 { reasonForRequest : pt experiencing [...] of when to seek emergency care. } [facility] visit for female patient complaining of left shoulder pain. Patient is Norwegian-speaking and an certified court interpreter was used by phone throughout visit. Patient [...] signs taken islisted. Patient afebrile. Consulted with [facility] doctor timothy who advised that do patients [...]
--- OUTSIDE RECORDS SUMMARY | 2025-06-27 20:24 | XMS_ITS | Continuity of Care Document ---
Author Name Parish Martinez Address [address] [place] [id number] Organization Unknown Address [address] [place] [address] Medications No known medications Problems No known problems
--- OUTSIDE RECORDS SUMMARY | 2025-06-27 20:24 | XMS_ITS | Data Portability ---
Author Organization [employer] [facility], [facility] Address [address] [place] [address] Care Team Providers Care Resident Programs Assistant Name Role Phone HIM CCA OTHER CRUZ MAURICE Primary Care Provider [phone] Assessment Encounter Date Assessment Date Assessment LastModified by Organization Details LastModified Time 03/27/2024 03/27/2024 I provided real -time medical direction via phone for this encounter, and was available for additional phone based assistance as needed. I have reviewed and agree with the Assessment and Plan as documented by the Junior Sales Assistant. We discussed the diagnostic uncertainty of home [...] to call 911- verbalized understanding of instruction [email or web address] Not available 03/27/2024 16:48:02 05/29/2024 05/29/2024 service [...] in the field was performed by my mail handler colleague, as noted above, I provided real-time [...] Assessment and Plan as documented by the Junior Sales Assistant. We discussed the diagnostic uncertainty of home [...] to call 911- verbalized understanding of instruction [email or web address] Not available 02/26/2025 13:27:16 03/23/2025 03/23/2025 service called for left shoulder pain found 74 lori with hx HTN chronic back pain fibromyalgic OA osteoporisis kidney injury (Cr 2.8), recently improved (Cr 1.2) c/o continued left shoulder pain refractory to prescribed PO oxycodone denies new trauma or injury of note records 2025-03-11 and 2025-03-09 from [facility] show R shoulder XR with chronic degenerative [...] Lab BMP, serum or plasma 2024 025 [facility], [address] [place] [address], [id number] 5 18:49:55 culture, urine 2023 024 [place] [facility] (Centralized Electronic Ordering - All Locations), Patient Can Go To The Location Of Their Choice, [id number] 4 08:09:10 urinalysis, dipstick 2023 024 [facility], [address] [place] [address], [id number] 20:30:58 Referral None recorded. Procedures None recorded. Surgeries None recorded. Imaging None recorded. Medication Orders amoxicillin 875 mg-potassiu m clavulanate 125 mg tablet 2024 025 [facility], [address] [place] [address], [id number], 5 12:52:33 amoxicillin 500 mg-potassiu m clavulanate 125 mg tablet 2024 025 [email or web address] [facility], [address] [place] [address], [id number], 5 12:44:30 bacitracin 500 unit/gram topical ointment 2024 025 [facility], [address] [place] [address], [id number], 5 12:52:29 furosemide 10 mg/mL injection solution 2024 025 [email or web address] [facility], [address] [place] [address], [id number], 5 13:25:40 albuterol sulfate 2.5 mg/3 mL (0.083 %) solution for nebulizatio n 2024 025 [email or web address] 0 [facility], [address] [place] [address], [id number], 5 12:44:30 albuterol sulfate 2.5 mg/3 mL (0.083 %) solution for nebulizatio n 2024 025 [facility], [address] [place] [address], [id number], 5 12:52:33 albuterol sulfate HFA 90 mcg/actuati on aerosol inhaler 2024 025 [facility], [address] [place] [address], [id number], 5 12:52:28 Ciprodex 0.3 %-0.1 % ear drops,suspe nsion 2024 025 [facility], [address] [place] [address], [id number], 5 12:33:11 clotrimazol e 1 % topical cream 2023 024 [facility], [address] [place] [address], [id number], 4 10:37:01 bacitracin 500 unit/gram topical ointment 2023 024 [email or web address] [facility], [address] [place] [address], [id number], 4 11:28:20 bacitracin 500 unit/gram topical ointment 2023 024 [facility], [address] [place] [address], [id number], 14:30:32 Patient TargetsNo targets recorded. Patient Instructions Encounter Date Encounter Id Patient Instructions Last Modified By Organization Details Last Modified Time 03/27/2024 [id number] wound care* [email or web address] Not available 11:28:21 Reason for Referral None Reported. Results Created Date Observation Date Name Description Value Unit Range Abnormal Flag Note LastModifiedBy Organization Detail LastModifiedTime 05/29/2005/31/2024 URINE CULTU RE,CO MPREH ENSIV E urine culture,comp rehensive Final report Not Available [facility] ([facility]) [address] [place], [address], 05/31/2024 08:09:10 05/29/2005/31/2024 URINE CULTU RE,CO MPREH ENSIV E result 1 COMMEN T Mixed uroge nital mary Great er than 100,0 00 colon y formi ng units per mL Not Available [facility] ([facility]) [address] [facility], [place], [address], 05/31/2024 08:09:10 Result Notes None recorded. Problems Name Problem SNOMED Code Status Onset Date Resolution Date Notes Provider Name and Address Organization Details Recorded Time Essential hypertensio n 10150727 Active 2022 Len Nguyen MD [address] [place] [address],[address], [place], [address], [employer] 18:59:08 Arterial insufficien cy 139773588 Active 2023 Len Nguyen MD [address] [facility],[address], [place], [address], [employer], [employer] 18:58:53 Asthma 577891605 Active 2023 Len Nguyen MD [address] [facility],[address], [place], [address], [employer], [employer] 18:59:00 Atrial fibrillatio n 95610839 Active 2023 Len Nguyen MD [address] [place] [address],[address], [place], [address], [place] [facility] [employer] 18:59:03 Arthritis 3814497 Active 2023 Len Nguyen MD [address] [place] [address],[address], [place], [address], [place] [employer] [employer] 18:58:58 Chronic kidney disease stage 3B 549615977 Active 2023 Len Nguyen MD [address] [place] [address],[address], [place], [address], [place] [employer] 18:58:51 Chronic diastolic heart failure 771245550 Active 2024 Len Nguyen MD [address] [place] [address],[address], [place], [address], [place] [employer] [employer] 18:58:42 Hyperglycem ia due to type 2 diabetes mellitus 3907489416339 09 Active 2024 Len Nguyen MD [address] [place] [address],[address], [place], [address], [place] [employer] 18:58:45 Moderate recurrent major depression 21043979 Active 2024 Len Nguyen MD [address] [place] [address],[address], [place], [address], [place] [employer] 18:58:37 Morbid obesity 963129116 Active 2024 Len Nguyen MD [address] [place] [address],[address], [place], [address], [place] [employer] [employer] 18:58:39 Problem Notes None recorded. Medical Equipment None Reported. Allergies Allergen ID Allergen Name Allergen Category Reaction Reaction Severity Criticality Documentation Date Start Date Code Code System Note Provider Name and Address Organization Details Recorded Time 28243 hydrocodo ne Not available Not available Not available Not available 03/23/2025 5489 RxNorm Len Nguyen MD [address] [place] [address],[address], [place], [address], [place] [employer] 18:59:23 5119 codeine medicatio n Not available Not available Not available 12/30/2023 2670 RxNorm Not Available [employer] 5 10:35:11 Medications Name Sig [...] Not Available Not Available Not Available [employer] [place] Lite kit USE DIRECTED TO TEST BLOOD [...] Available No t Available [employer] [place] 2 [place] USE DIRECTED EVERY 8 HOURS active Not [...] % 60 /min 108/57 mm[Hg] Not Available [employer] 5 17:25:24 Date Recorded Body height Body mass index (BMI) Body weight Provider Name and Address Organization Details Last Updated DateTime 02/26/2025 134.62 cm 61.5 kg/m2 076199 g Radha Foster MD [address] [facility],[address] [facility], [place], [address], [place] - [employer] 02/26/2025 17:57:17 Date Recorded Oxygen saturation Oxygen saturation in Arterial blood by Pulse oximetry Respiratory rate Heart rate Body temperature Systolic And Diastolic Provider Name and Address Organization Details Last Updated DateTime 5 92 % 92 % 18 /min 68 /min 98.8 [degF] 152/84 mm[Hg] Not Available [employer] - [employer] 5 12:10:50 Date Recorded Oxygen saturation Oxygen saturation in Arterial blood by Pulse oximetry Body weight Body temperature Respiratory rate Heart rate Body height Systolic And Diastolic Provider Name and Address Organization Details Last Updated DateTime 5 98 % 98 % 378955. 08 g 99 [degF] 16 /min 72 /min 154.94 cm 141/71 mm[Hg] Not Available [employer] - [employer] 5 18:57:20 Date Recorded Respiratory rate Oxygen saturation Oxygen saturation in Arterial blood by Pulse oximetry Body height Heart rate Body temperature Body weight Systolic And Diastolic Provider Name and Address Organization Details Last Updated DateTime 4 16 /min 94 % 94 % 157.48 cm 60 /min 98.7 [degF] 518875. 448 g 129/77 mm[Hg] Not Available [employer] 4 11:19:40 Date Recorded Heart rate Body height Body temperature Respiratory rate Oxygen saturation Oxygen saturation in Arterial blood by Pulse oximetry Body weight Systolic And Diastolic Provider Name and Address Organization Details Last Updated DateTime 4 58 /min 134.62 cm 99.3 [degF] 16 /min 95 % 95 % 419086. 632 g 150/73 mm[Hg] Not Available [employer] 4 17:02:13 Social History None recorded. Functional Status None recorded. Mental Status None recorded. Family History Nothing Reported. Medical History No medical history recorded. Gynecological HistoryNo gynecological history recorded. Obstetrics History GPAL:G 0 P 0 0 0 0 Past Encounters Encounter ID Performer Location Encounter Start Date Encounter Closed Date Diagnosis/Indication Diagnosis SNOMED-CT Code Diagnosis ICD10 Code Diagnosis IMO Codes Diagnosis Note [id number] Radha Fotser MD [facility] - [facility] [address] [place] [phone] 12/30/2023 14:10:14 12/31/2023 21:23:21 Cellulitis of lower limb 172527771 L03.119 left lower leg primarily ? starting [...] better staph coverage-a dvised to apply sparingly. [id number] Radha Foster MD Main - [facility] [address] [place] [phone] 02/09/2024 16:16:11 02/10/2024 13:33:55 Cellulitis of lower limb 595637191 L03.119 left lower leg primarily, less on [...] better staph coverage-a dvised to apply sparingly. [id number] Angely Lake MD Main - [facility] [address] [place] [phone] 02/23/2024 15:31:54 02/23/2024 22:21:20 Peripheral vascular disease 000029904 I73.9 73 year old female being evaluated [...] assessment and plan as documented by the mail handler. I provided real-time medical direction for this encounter and was immediatel y available to provide additional phone-base d assistance as needed. We discussed the diagnostic uncertaint y of home visits and associated risks. We discussed the need to seek care urgently/e mergently in the setting of any new or worsening symptoms. [id number] Radha Foster MD Main - [address] [phone] 03/27/2024 11:19:23 03/27/2024 22:47:07 Wound of skin 992398383 T14.8XXA Advised to elevate the leg/not use [...] reviewed she is only allergic to codeine. [id number] Len Nguyen MD Main - [facility] [address] [place] [phone] 05/29/2024 17:02:10 05/30/2024 10:24:58 Tinea cruris 459116133 B35.6 Urinary symptoms 0437958 08 R39.9 [id number] [facility] [address] [place] [phone] 09/25/2024 17:25:19 09/26/2024 08:34:36 Otitis externa of right ear 9547034994 978680 H60.91 [id number] Radha Foster MD [facility] [address] [phone] 02/26/2025 12:10:42 02/26/2025 19:21:42 Peripheral edema 660041175 R60.0 82510 w/ cellulitis LLE-doubt DVT given no calf [...] exac erbation of chronic obstructive pulmonary disease 371061090 J44.1 864546 Status post neb sat 99% heart rate 71 and breath sounds clear- feels good/Needs to use 02 2lNC- sent in new albuterol mdi and nebulizer rx-patient 's nebulizer and her albuterol which may be outdated is at her daughters and she has run out of her albuterol MDI so new Rx sent. Advised using regularly will help with chronic dyspnea on exertion. [id number] Len Nguyen MD Main-[facility] [address] [phone] 03/23/2025 18:57:16 03/23/2025 23:47:02 Bilateral chronic pain of upper limbs 7983883876 0116892 M25.511 M25.512 G89.29 46082220 Health Concerns Section Related Observation LastModified by Organization Detai ls LastModified Time None Recorded Concern Status LastModified by Organization Details LastModified Time None Recorded Advance Directives Directive None Recorded Payers Insurance Date Sequence Insurance Name Policy Number Policy Meza Covered Member ID Meza Member ID Guarantor Name 03/23/2025 1 [facility] - DOS ON OR AFTER 2022 - DUAL ELIGIBLE - RETIREMENT OPTIONS AND ONE CARE (MEDICARE REPLACEMENT/ADV ANTAGE - HMO) Mary Lou Cisneros [id number] Mary Lou Cisneros Notes Date Note Type Note Provider Name and Address Organization Details Recorded Time 03/27/20 24 text/ht ml ROS as noted in the HPI CRC Nurse Triage Notes (Rishi Domínguez): Reason For Request: left leg pain Chief Complaints: Pain PMH: Diabetes, Hypertension, COPD/Asthma Other Allergies: NKDA Comments: Salon Customer Experience Specialist verified the member's name//address and phone [...] Denies SOB ................................. ................................. ................................. ................................. ......... Junior Sales Assistant Note From Markell Villagomez: Pt s daughter/CG reports pt was seen at [place] [facility] last week for cellulitis of the [...] Disposition: Fulfilled Radha Foster MD [address] [facility],[address], [place], [address], [facility] - [employer] 03/27/2024 16:49:56 05/29/20 24 text/ht ml HPI: pmhx: UTI, candidiasis of vagina UTI, urine retention.Call returned to [facility] to triage below. Reports having rash on callie area x 1 week. Per daughter no fluid filled spots. Small red pin point spots. Pt also having urinary frequency. Has applied Vaseline to area with mild relief. Per daughter concerned as pt is DM and has been scratching area concerned for infection. Unable to bring pt to WIC at [facility] as pt is bed bound. Agrees to [employer] referral. Confirmed address, contact number and allergies. ................................. ................................. ................................. ................................. ......... CRC Nurse Triage Notes (Melinda Melvin): Chief Complaints: Rash, UTI/Pyelonephritis PMH: COPD/Asthma, Diabetes, Hypertension, COPD/Asthma Other Allergies: CODIENE Comments: CRC RN did not require any additional information to process this visit. Junior Sales Assistant Organization Information for Jerman Anderson Business Legal Name: [employer]. Address: [address] [place] [address], Clerk [address]: Jhon HERNANDEZ No.: [id number] Junior Sales Assistant POC Test Results from Jerman Anderson Blood [...] ++++ GLU ................................. ................................. ................................. ................................. ......... Junior Sales Assistant Note From Jerman Anderson: [facility] visit for female pt. 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 Pt has reportedly had redness and irritation in her groin for 1 week in addition to high blood sugars. V/S taken as listed. Pt afebrile, though temp seems to be elevated with pt having taken acetaminophen today. STEEPING PRESS OPERATOR changed pt's diaper and redness was noted in addition to smell consistent with possible fungal infection. Obtained urine sample positive for leukocytes and nitrates and blood and glucose. Blood glucose elevated at 335 mg/dL. Family reports difficulty maintaining blood sugar and that pt has not adhered to dietary restrictions. Urine culture obtained. Consulted with [facility] Dr. Nguyen who prescribed clotrimazole and ordered urine culture. Reviewed red flags for ED. Pt education provided. Culture delivered to [facility]. [facility] Lab Orders: culture, urine: Performed ................................. ................................. ................................. ................................. ......... Disposition: Fulfilled Len Nguyen MD [address] [place] [address],[address], [place], [address], [employer] 05/29/2024 22:50:45 09/25/19 25 text/ht ml CRC [...] s/s and seek emergency treatment if needed. Junior Sales Assistant Organization Information for Markell Villagomez Business Legal Name: [facility] Address: [address] [place] [address], Clerk [address]: Rob Bhagat MD CLIA No.: [id number] Junior Sales Assistant POC Test Results from Markell Villagomez Rapid [...] and seek emergency treatment if needed.[facility] HPI: known FM, chronic pain, uses oxycodone and gabapentin for this. 3-7d R ear pain. some sinus congestion ................................. ................................. ................................. ................................. ......... Junior Sales Assistant Note From Markell Villagomez: This 74-year-old female [...] ................................. ................................. ................................. ................................. ......... [facility] Consulted: Michelle Rg ................................. ................................. ................................. ................................. ......... Disposition: Mathew Rg MD [address] [place] [address],[address], [place], [address], [employer] 09/25/2024 18:01:43 02/27/20 25 text/ht ml ROS as noted in the [facility] CRC Nurse Triage Notes (Agustín Shipley): Reason For Request: Pt's STEEPING PRESS OPERATOR reporting discoloration changes in her legs [...] 74 y.o female complains of Extremity PainPatient's STEEPING PRESS OPERATOR calling reporting patient is having red discoloration to L lower leg for the last two weeks. STEEPING PRESS OPERATOR reports this has happened before and [...] H&H on 08/02/2024 was 7.4 and 25.3 Junior Sales Assistant Organization Information for Garrick El Josh Kapadia Legal Name: [employer]. Address: [address] [place] [id number], Clerk Of Superior Court: Jhon HERNANDEZ No.: [id number] Junior Sales Assistant POC Test Results from [place] iSTAT Chem8+ (12:24:44) Na: 135 mEq/L K: 4.2 mEq/L Cl: 93 mEq/L iCa: 1.05 mmol/L TCO2: 32 mmol/L Glu: 264 mg/dL BUN: 23 mg/dL Crea: 1.4 mg/dL Hct: 24 % Hb: 8.2 g/dL A mmol/L Cartridge Number: [id number] Attachments uploaded as part of this test result can be found under Documents section. ................................. ................................. ................................. ................................. ......... Junior Sales Assistant Note From [place]: Encountered patient supine [...] or inflammation. BMP performed, values uploaded via [employer]. Skin warm, dry and of appropriate color [...] knee; peripheral pulses present throughout. [facility] contacted: reports they will treat patient for a suspected infection while also addressing possible fluid retention. Augmentin x1 administered. Albuterol neb treatment x1 administered. 40mg IM Furosemide administered. All medications administered after reconciling r ights with patient and family. [facility] reports they will send a [...] is comfortable remaining home today. [facility] Lab Orders: BMP, serum or plasma: Performed [facility] Medication Orders: amoxicillin 500 mg-potassium clavulanate 125 mg tablet: Administered furosemide 10 mg/mL injection solution: Administered albuterol sulfate 2.5 mg/3 mL (0.083 %) solution for nebulization: Administered ................................. ................................. ................................. ................................. ......... [facility] Consulted: Radha Foster ................................. ................................. ................................. ................................. ......... Disposition: Mathew Foster MD [address] [facility],[address], [place], [address], [employer] 02/26/2025 18:08:10 03/23/20 25 text/ht ml CRC [...] emergency care. ................................. ................................. ................................. ................................. ......... Junior Sales Assistant Note From Jerman Anderson: [facility] visit for female patient complaining of left shoulder pain. Patient is Turkish-speaking and an motor vehicle parts interpreter was used by phone throughout visit. [...] listed. Patient afebrile. Consulted with [facility] doctor timothy who advised that do patients chronic kidney disease we would not be able to administer NSAIDs or any other pain agents at this time. Patient told that she would have to follow up with primary care or go to the emergency department for any stronger pain medication. Patient education provided. ................................. ................................. ................................. ................................. ......... [facility] Consulted: Len Nguyen ................................. ................................. ................................. ................................. ......... Disposition: Fulfilled Len Nguyen MD [address] [facility],[address], [place], [address], [employer] 03/23/2025 22:05:38 OBGyn Episode No OBEpisode recorded.
--- OUTSIDE RECORDS SUMMARY | 2025-06-27 20:24 | XMS_ITS | Clinical Summary ---
Author Organization [facility] Address [address] [place] [phone] Phone Care Team Providers Care Envelope Folding Machine Operator Name Role Phone Amanda Watkins [...] 12/06/2023, 07/16/2016, 02/17/2013, Additional history exists Insurance [facility] MCR ([id number]) CARL[place] LOPES [id number] [place] [id number] [facility] ([id number]) CARL[place] LOPES [phone] Care Teams Envelope Folding Machine Operator Relationship Specialty Start Date End Date Amanda Watkins MD [address] [place] [phone] PCP - General Internal Medicine 03/01/23
--- OUTSIDE RECORDS SUMMARY | 2025-06-27 20:24 | XMS_ITS | Patient Health Record ---
Author Organization [facility] Address [address] [facility] [address] [place] [address] Care Team Providers Care Car Inspector Name Role Phone Amanda Adame M.D. Primary Care Provider João Woodward Jr Results Component Value Reference Range Notes Pathology Reviewed date:03/21/2025 08:46:31 AM Interpretation: Performing Lab:[facility], [address] [place] [address] Notes/Report: Reason For Referral No Information Problems Problem Type SNOMED Code ICD Code Onset Dates Problem Status W/U Status Risk Notes Problem Iron deficiency anemia (97171802) Iron deficiency anemia (D50.9) Active confirmed Problem Gastritis (5998456) Gastritis (K29.70) Active confirmed Encounters Encounter Location Date Provider Diagnosis [facility] Inpatient [address] [place] [id number] 03/06/2025 João Leon Jr [facility] [address] [place] [phone] 03/21/2025 João Leon Jr Plan Of Treatment Next Appt Details Provider Name:João yañez Jr, 07/26/2025 02:15:00 PM, [address] [facility], [address], [place], [address], Insurance Providers Payer Name Payer Address Payer Phone Subscriber Number Group Number Insured Name Patient Relationship to Insured Coverage Start Date Coverage End Date [facility] [address] Attn Claims CARLOS Varma [id number] JP MORGAN Self - patient is the insured
--- OUTSIDE RECORDS SUMMARY | 2025-06-27 20:24 | XMS_ITS | Encounter Summary ---
Author Organization [facility] Address [address] [facility] [address] [place] [address] Encounters * CPT with Parish Martinez at [facility] on 2025-02-26 { reasonForRequest : Pt's WOOD PATTERNMAKER APPRENTICE reporting discoloration changes in her legs (redness)", [...] 74 y.o female complains of Extremity Pain\nPatient's WOOD PATTERNMAKER APPRENTICE calling reporting patient is having red discoloration to L l ower leg for the last two weeks. WOOD PATTERNMAKER APPRENTICE reports this has happened before and the [...] pain or inflammation. BMP performed, values uploadedvia [employer]. Skin warm, dry and of appropriate color [...] below the knee; peripheral pulses present throughout. [facility] contacted: reports they will treat patient for a suspected infection while also addressing possible fluid retention. Augmentin x1 administered. Albuterol neb treatment x1 administered. 40mg IM Furosemide administered. All medications administered after reconciling ???rights?? with patient and family. [facility] reports they will send a prescription for [...]
--- OUTSIDE RECORDS SUMMARY | 2025-06-27 20:25 | XMS_ITS | Data Portability ---
Author Organization [facility], Main Office Address [address] [facility] [address] [place] [address] Care Team Providers Care Food Service Counter Clerk Name Role Phone EUGENIA FLOWER - 2ND FLOOR OTHER Assessment Encounter Date Assessment Date Assessment LastModified by Organization Details LastModified Time 04/08/2024 04/08/202404/05 na 139 k 5 cre 1.27 wbc 6.8 hgn 9.7 hct 31.1 [email or web address] Not available 04/08/2024 12:35:37 04/11/2024 04/11/202404/05 na 139 k 5 cre 1.27 wbc 6.8 hgn 9.7 hct 31.1 [email or web address] Not available 04/11/2024 21:51:17 04/18/2024 04/18/202404/05 na 139 k 5 cre 1.27 wbc 6.8 hgn 9.7 hct 31.1 [email or web address] Not available 04/18/2024 13:49:59 04/19/2024 04/19/202404/05 na 139 k 5 cre 1.27 wbc 6.8 hgn 9.7 hct 31.1 this REHEATER HELPER spent >30 minutes with assessment, dx, referral, [...] Address Organization Details Recorded Time Depressive disorder 91667375 Active 2023 HOLDEN LAURENT [address], [address], [place], [address], [facility] 4 12:24:02 Atrial fibrillation 43634707 Active 2023 HOLDEN LAURENT [address], [address], [place], [address], [facility] 4 12:24:20 Obstructive sleep apnea syndrome 64640409 Active 2023 HOLDEN LAURENT [address], [address], [place], [address], [facility] 4 12:24:31 Asthma 451125222 Active 2023 HOLDEN LAURENT [address], [address], [place], [address], [facility] 4 12:24:36 Hypertensive disorder 87040249 Active 2023 HOLDEN LAURENT [address], [place], [address], [facility] 4 12:24:41 Hyperlipidemia 28973896 Active 2023 HOLDEN LAURENT [address], [place], [address], [facility] 4 12:24:47 Retention of urine 350801339 Active 2023 HOLDEN LAURENT [address], [address], [place], [address], [facility] 4 12:24:53 Opioid dependence 74333694 Active 2023 HOLDEN LAURENT [address], [address], [place], [address], [facility] 4 12:25:08 Diabetes mellitus 08756644 Active 2023 HOLDEN LAURENT [address], [address], [place], [address], [facility] 4 12:25:14 Congestive heart failure 78350131 Active 2023 HOLDEN LAURENT [address], [address], [place], [address], [facility] 4 12:25:21 Gastroesophage al reflux disease 767824682 Active 2023 HOLDEN LAURENT [address], [address], [place], [address], [facility] 4 12:25:30 Hypothyroidism 42473982 Active 2023 HOLDEN LAURENT [address], [address], [place], [address], [facility] 4 12:25:37 Cellulitis 981425127 Active 2023 HOLDEN LAURENT [address], [address], [place], [address], [facility] 4 12:26:22 Arterial insufficiency 603401408 Active 2023 HOLDEN LAURENT [address], [address], [place], [address], [facility] 4 12:26:37 Problem Notes None recorded. Medical Equipment None Reported. Allergies Allergen ID Allergen Name Allergen Category Reaction Reaction Severity Criticality Documentation Date Start Date Code Code System Note Provider Name and Address Organization Details Recorded Time 41701 codeine medicatio n Not available Not available Not available 04/08/2024 2670 RxNorm HOLDEN LAURENT [address], [place], [address], [facility] 4 12:38:31 Medications Name Sig Start Date [...] Updated DateTime 4 152.4 cm 48.5 kg/m2 246480. 27 g 53 /min 18 /min 98.6 [degF] 98 % 98 % 149/77 mm[Hg] Genny Aguilar MD [address] [facility] [address], [place], [address], [facility] 4 21:34:16 Date Recorded Body height Heart rate Respiratory rate Body temperature Oxygen saturation Oxygen saturation in Arterial blood by Pulse oximetry Systolic And Diastolic Provider Name and Address Organization Details Last Updated DateTime 4 152.4 cm 54 /min 18 /min 98.1 [degF] 96 % 96 % 175/90 mm[Hg] IBETH PRICE NP [address] [facility], [address], [place], [address], [facility] 4 13:49:23 Date Recorded Body height Body mass index (BMI) Body weight Heart rate Respiratory rate Body temperature Oxygen saturation Oxygen saturation in Arterial blood by Pulse oximetry Systolic And Diastolic Provider Name and Address Organization Details Last Updated DateTime 4 152.4 cm 48.4 kg/m2 522127. 91 g 68 /min 18 /min 98.1 [degF] 96 % 96 % 132/72 mm[Hg] Raiza Madsen NP [address] [facility] [address], [place], [address], [facility] 4 08:19:33 Social History Question Answer Notes LastModified by Organizat ion Details LastModified Time Tobacco Smoking Status Never Smoker Genny Aguilar MD [address] [facility] [address], [place], [address], [facility] 04/11/2024 21:50:08 Do You Have An Advance Directive? Yes Information not available 04/11/2024 What Is Your Code Status? Full Code Information not available 04/11/2024 Where Do You Live? Apartment With Sister, Elevator Access. Information not available 04/11/2024 Legal Guardian? No Information not available 04/11/2024 Do You Have A Medical Power Of Exhaust Emissions Automotive Technician? Yes Information not available 04/11/2024 What Was [...] ICD10 Code Diagnosis IMO Codes Diagnosis Note [id number] HOLDEN LAURENT [address] [address] 04/08/2024 12:12:39 04/13/2024 15:07:34 Cellulitis 056024286 L03.90 completed antbx for LE cellulitis in ED = did not feel it was recurrence of an acute infectionh /o chronic lymphedema -monitor ss of infection- bacitracin topical to BL legs daily-oxyc odone 5 mg q6h prn for pain Arterial insufficiency 864304877 I77.1 -f/up with vascular per recs needs to be arranged-s ee above Retention of urine 49764 4002 R33.9 unable to urinate since coming from [facility] to facility-w ill order PVR, SC for PVR >400 cc Atrial fibrillation 4943 6004 I48.91 carrying dx-amiodar one 200 mg daily-eliq uis 5 mg bid-monito r HR and bleeding Hypertensive disorder 38 628447 I10 carrying dx-amlodip ine 10 mg daily-leonardo tor BP Depressive disorder 3548 9007 F32.A carrying dx-duloxet ine 20 mg daily-paxi l 40 mg daily-leonardo tor mood and affect-psy ch eval prn Congestive heart failure 01312698 I50.9 carrying dxnot on diuretics- metoprolol 50 mg daily-farx iga 10 mg daily-leonardo tor fluid status closely-da sacha weights Diabetes mellitus 059078 09 E11.9 carrying dxjardianc e was given once in hospital, dont see it on her home med list or dc med list = asked nursing to ask dtr-lantus 65 units HS-monitor accuchecks TID Hypothyroidism 59429284 E03.9 carrying dx-synthro id 50 mcg po in am-TSH/T4 prn Hyperlipidemia 68031182 E78.5 carrying dx-lipitor 80 mg daily Gastroesop hageal reflux disease 883059894 K21.9 carrying dx-omepraz ole 40 mg po daily Obstructiv e sleep apnea syndrome 16577610 G47.33 intermitte nt CPAP use at home Opioid dependence 053899 00 F11.20 -monitor needed support in community- on oxycodone for leg pain = monitor usage and wean as tolerated Dermal mycosis 77709063 B36.9 yeast infection of groin-nyst atin TID x 7 days Anxiety 66688812 F41.9 -hydroxyzi ne 25 mg q8h prn for anxiety [id number] Genny Aguilar MD [address] [address] 04/11/2024 20:47:59 04/17/2024 10:31:08 Cellulitis 524394323 L03.116 Resolved, now with healing wounds.Is getting very itchy, has hydroxyzin e ordered 25 mg q 8 hrs prn, but pt requests benadryl.W ill start diphenhydr amine 25 mg q 4 hrs prn.Contin ue bacitracin topical to BL legs qd and oxycodone 5 mg q 6 hrs prn for pain.Monit or for healing. Arterial insufficiency 145953807 I77.1 F/U with vascular as planned.Mo rubén ramos n. Retention of urine 17215 4002 R33.8 Improved, continue to monitor. Atrial fibrillation 4943 6004 I48.0 Rate in good control on amiodarone 200 mg daily and metoprolol 50 mg daily.Cont inue eliquis 5 mg BID for AC.Monitor HR and bleeding risk. Hypertensive disorder 38 301214 I10 Fair control on amlodipine 10 mg daily and metoprolol 50 mg daily.Leonardo tor BP and labs. Depressive disorder 3548 9007 F33.8 Mood good tonight, aside form wanting to go home.Nicanor nue duloxetine 20 mg daily, paroxetine 40 mg daily, trazadone 50 mg at bedtime, and melatonin 5 mg at bedtime.Mo nitor moodPsych consult prn Congestive heart failure 54838067 I50.32 Appears euvolemic. Continue meds as above and Farxiga 10 mg daily.Leonardo tor resp. status, fluid status, wts and labs. Diabetes mellitus 972495 09 E11.9 In good control since here.Nicanor nue lantus 65 units daily and Farxiga 10 mg daily.Leonardo tor accuchecks TID Hypothyroidism 49114425 E03.8 Continue levothyrox ine 50 mcg dailyMonit or TSH prn. Hyperlipidemia 25156163 E78.49 Continue atorvastat in 80 mg dailyMonit or labs as outpt. Gastroesop hageal reflux disease 561785869 K21.9 No current sxs.Contin ue omeprazole 40 mg dailyMonit or GI sxs. Obstructiv e sleep apnea syndrome 66982654 G47.33 Continue CPAP with sleep.F/U prn. Opioid dependence 033307 00 F11.20 On oxycodone chronicall y.Monitor use and f/u with pcp as planned. Candidiasis of vagina 72 622412 B37.31 Not improving with nystatin.W ill start diflucan 150 mg x 1 and repeat in 1 wk. [id number] IBETH PRICE NP [address] [address] 04/18/2024 08:27:20 04/19/2024 14:02:05 Cellulitis 151448771 L03.116 Improved. now with healing woundsdiph enhydramin [...] BMP x 1 in am Arterial insufficiency 372692592 I77.1 F/U with vascular as planned.Anthony sotelo.Refer to [facility] for outpt. mgmt. upon d/c. Retention of urine 87257 4002 R33.8 Improved, continue to monitor. Atrial fibrillation 4943 6004 I48.0 Rate in good control on amiodarone 200 mg daily and metoprolol 50 mg daily.Cont inue eliquis 5 mg BID for AC.Monitor HR and bleeding risk. Hypertensive disorder 38 168012 I10 Fair control on amlodipine 10 mg [...] [place] moodPsych consult prn Congestive heart failure 77057323 I50.32 Appears euvolemic. Continue meds as above and Farxiga 10 mg daily.Leonardo tor resp. status, fluid status, wts and labs. Diabetes mellitus 420236 09 E11.9 In fair control since here.Nicanor nue lantus 65 units daily and Farxiga 10 mg daily.Leonardo tor accuchecks TID Hypothyroidism 56870492 E03.8 Continue levothyrox ine 50 mcg dailyMonit or TSH prn. Hyperlipidemia 28445873 E78.49 Continue atorvastat in 80 mg dailyMonit or labs as outpt. Gastroesop hageal reflux disease 635342575 K21.9 No current sxs.Contin ue omeprazole 40 mg dailyMonit or GI sxs. Obstructiv e sleep apnea syndrome 19423435 G47.33 Continue CPAP with sleep.F/U prn. Opioid dependence 778044 00 F11.20 On oxycodone chronicall y.Monitor use and f/u with pcp as planned. Candidiasis of vagina 72 161649 B37.31 Not improving with nystatin.D iflucan 150 mg x 1 given, to repeat in 1 wk. [id number] [facility] [place] [address] 04/19/2024 08:18:47 04/20/2024 13:31:13 Cellulitis 444152280 L03.116 resolved with abx in hospitalno w [...] pcp, and wound clinica oupt Arterial insufficiency 394860298 I77.1 F/U with vascular as planned.Re marichuy to [facility] for outpt. mgmt. upon d/c. (referral given)vna services outpt with pcp to follow outpt with wound clinic Retention of urine 71489 4002 R33.8 Improved, continue to monitor. Atrial fibrillation 4943 6004 I48.0 Rate in good control on amiodarone 200 mg daily and metoprolol 50 mg daily.Cont inue eliquis 5 mg BID for AC.Monitor outpt with pcp and cardiology outpt Hypertensive disorder 38 397942 I10 hospital dc'd losartan 50 mg po [...] outptPsych consult prn outpt Congestive heart failure 48431433 I50.32 Appears euvolemic. Continue meds as above and Farxiga 10 mg daily.Leonardo tor outpt with pcp Diabetes mellitus 441878 09 E11.9 In fair control since here. 100-200s? if higher 200s related to infectiona lso glipizide and metformin was dc in hosp for ckd, monitor for need to add with pcp outptConti nuelantus 65 units dailyFarxi ga 10 mg daily.Leonardo tor accuchecks TID at home and bring log to pcp on 04/26/24. Hypothyroidism 77426134 E03.8 Continuele vothyroxin e 50 mcg dailyMonit or TSH prn outpt withpcp Hyperlipidemia 64380951 E78.49 Continue atorvastat in 80 mg dailyMonit or labs as outpt. Gastroesop hageal reflux disease 557020308 K21.9 No current sxs.Contin ueomeprazo le 40 mg dailyMonit or GI sxs. outpt with pcp Obstructiv e sleep apnea syndrome 25992017 G47.33 Continue CPAP with sleep.F/U prn outpt prn Opioid dependence 917196 00 F11.20 On oxycodone chronicall y.will cont on home dose and since on chronicall y will not send with any additional oxycodoneM onitor use and f/u with pcp as planned outpt Candidiasis of vagina 72 737952 B37.31 Not improving with nystatin.D iflucan 150 mg x 1 given at rehabmonit or with pcp outpt Chronic ki dney disease 475674520 N18.9 ckd per hosp paperwork with meds adjusted:g lipizide, losartan, furosemide , and metformin were dc'dlabs as [facility] and need to adjust outpt with pcp Pain in le ft lower limb 186122686 M79.605 addendumpt was ready for discharge and now reporting left lower leg pain and states she can't put weight on itwhen attempting to get dressed for homefamily refuses therapy eval and xray here,famil y requests 911 call, and emergent evaluation at [facility] Concerns Section Related Observation LastModified by Organization Detai ls LastModified Time None Recorded Concern Status LastModified by Organization Details LastModified Time None Recorded Advance Directives Directive Y: Payers Insurance Date Sequence Insurance Name Policy Number Policy Meza Covered Member ID Meza Member ID Guarantor Name 04/19/2024 1 [facility] - DOS ON OR AFTER 2022 - MEDICARE ADVANTAGE [place] (MEDICARE REPLACEMENT/ADV ANTAGE - PPO) Mary Lou Cisneros [id number] Mary Lou Cisneros Notes Date Note Type Note Provider Name and Address Organization Details Recorded Time 04/08/2024 text/html Patient is a 73 yo female being seen for initial intake visit. She presented to [facility] for eval of left leg [...] and was recommended for transfer to [facility] for continued care and rehab. On arrival from hospital patient reporting to nursing that she hasnt urinated. No report of this occurring while she was at [facility] and she did not have a [...] opiate dependence, hld, htn, DM REBECA SOTOMAYOR, REHEATER HELPER-C [address] [place] [address], [address], [place], [address], [facility] 04/08/2024 13:05:26 04/11/2024 text/html This is a 73 yo woman who is here for rehab after an ED visit for left leg pain after recovery from recent cellulitis.[facility] [place]ed [...] for most activities.I see her with a bolivian speaking staff member.She is in bed, wakes [...] OA, OP, and fibromyalgia. Genny Aguilar MD [address] [place] [address], [address], [place], [address], [facility] 04/14/2024 20:04:50 04/18/2024 text/html This is a 73 yo woman who is here for rehab after an ED visit for left leg pain after recovery from recent cellulitis.[facility] txed [...] OP, and fibromyalgia. IBETH PRICE NP [address] [facility], [address], [place], [address], [facility] 04/18/2024 14:21:33 04/19/2024 text/html This is a [...] note per records:She [facility] txed [...] outpt with pcp She was transferred to [facility] for rehab on 04/08 and working with rehab showing improvement and felt she is stable to discharge home. Vitals stable here and BP labile, last at 132/72 this am. While at [facility] she was seen by the wound team [...] 2024. She will be picked up by [facility] @ 1:00 PM. A referral has [...] 2024. She will be picked up by [facility] @ 1:00 PM. A referral has [...] she goes home from ER. discussed with hospice plan administrator at facility Raiza Madsen NP [address] [facility], [address], [place], [address], [facility] 04/19/2024 13:13:44 OBGyn Episode No OBEpisode recorded.
== END 2025-06-27 12:31 | disposition home or self-care (01) ==
LOC: HO.HOS 10:30
PROVIDERS: PCP Internal Medicine; Visit Provider Orthopaedic Surgery
DX: M79.642 Pain in left hand (principal)
CPT/HCPCS: 99203

== ENCOUNTER → 2025-06-27 10:31 | Outpatient (BNV) | payer OTHER, SELFPAY | PROVIDERS: Visit Provider Radiology Diagnostic Radiology | DX: M79.642 Pain in left hand (principal) | CPT/HCPCS: 73130 ==

== ENCOUNTER 2025-06-27 10:46 | Outpatient (REF) | payer OTHER, SELFPAY ==
--- OUTSIDE RECORDS SUMMARY | 2025-03-06 05:50 | XMS_ITS ---
Author Organization [facility] Address [address] [place] [address] Care Team Providers Care Pattern Drum Maker Name Role Phone Amanda Adame M.D. Primary Care Provider Geoff Leon Jr, João Marie REASON FOR VISIT anemia Encounters Encounter Location Date Provider Diagnosis [facility] [place] [address] [place], [place] [id number] 03/06/2025 João Leon Jr Plan Of Treatment Next Appt Details Provider Name:João yañez Jr, 07/26/2025 02:15:00 PM, [address], [address], [place], [address], Progress Notes * JP MORGANDOB:[birth year] (74 yo F)Acc No.[id number]:03/06/2025 EGD and COL/MAC Patient: JP HINKLE Provider: Shannan Leon MD :1950 A ge:74 Y S ex:Female Date:03/06/2025 Address:[address] [place] [address] [address] , [place], [place] Pcp:Amanda Adame M.D. Subjective: * Chief Complaints: * A nemia * The named appointment provid er may or may not be the originator of this progress note, and it is not deemed complete until electronically signed by the appointment provider. Sign off status: Pending * Provider: Shannan Leon MD Date: 0 03/06/2025 Generated for Selene garcia/Thad/Tachosmitting on: 1 08/28/2024 04:15 PM EST
--- NOTE | ~2025-06-27 | XR_ITS ---
EXAMINATION: XR HAND 3 OR MORE VIEWS LEFT HISTORY: M79.642 - Pain in left hand COMPARISON: There are no prior studies available for comparison. FINDINGS: Three views of the left hand are submitted. Osseous mineralization is normal. There is no fracture or dislocation. There is severe osteoarthritis of the 2nd and 4th DIP joints and moderate osteoarthritis of the 3rd and 5th DIP joints as well as the interphalangeal joint of the thumb. There are vascular calcifications. XR/XR hand LT min 3V IMPRESSION: Degenerative changes of the left hand as described. Electronically signed by: Frdey Jacobsen MD 06/27/2025 11:17 AM ANASTASIA
--- OUTSIDE RECORDS SUMMARY | 2025-06-28 16:16 | XMS_ITS | Encounter Summary ---
Author Organization [facility] Address [address] [facility] [address] [place] [address] Encounters * CPT with Parish Martinez at [employer] on 2025-02-26 { reasonForRequest : Pt's PAPER GRADER reporting discoloration changes in her legs (redness)", [...] 74 y.o female complains of Extremity Pain\nPatient's PAPER GRADER calling reporting patient is having red discoloration to L l ower leg for the last two weeks. PAPER GRADER reports this has happened before and the [...] pain or inflammation. BMP performed, values uploadedvia [employer]. Skin warm, dry and of appropriate color [...] below the knee; peripheral pulses present throughout. [facility] contacted: reports they will treat patient for a suspected infection while also addressing possible fluid retention. Augmentin x1 administered. Albuterol neb treatment x1 administered. 40mg IM Furosemide administered. All medications administered after reconciling ???rights?? with patient and family. [facility] reports they will send a prescription for [...]
--- OUTSIDE RECORDS SUMMARY | 2025-06-28 16:16 | XMS_ITS | Continuity of Care Document ---
Author Name [facility], Medical Address [address] [place] [address] Organization Unknown Address [address] [place] [address] Medications No known medications Problems No known problems
--- OUTSIDE RECORDS SUMMARY | 2025-06-28 16:16 | XMS_ITS | Encounter Summary ---
Author Organization [facility] Address [address] [facility] [address] [place] [address] Encounters * CPT with Medical [facility] at [facility] on 2025-03-23 { reasonForRequest : pt experiencing [...] of when to seek emergency care. } Counts include 234 beds at the [facility] visit for female patient complaining of left shoulder pain. Patient is Montserratian-speaking and an seismic interpreter was used by phone throughout visit. [...] signs taken islisted. Patient afebrile. Consulted with [facility] doctor timothy who advised that do patients [...]
--- OUTSIDE RECORDS SUMMARY | 2025-06-28 16:16 | XMS_ITS | Patient Health Record ---
Author Organization [facility] Address [address] [facility] [address] [place] [phone] Care Team Providers Care Ceo Name Role Phone Amanda Adame M.D. Primary Care Provider João Woodward Jr [phone] Results Component Value Reference Range Notes Pathology Reviewed date:03/21/2025 08:46:31 AM Interpretation: Performing Lab:[facility], [address] [place] [id number] Notes/Report: Reason For Referral No Information Problems Problem Type SNOMED Code ICD Code Onset Dates Problem Status W/U Status Risk Notes Problem Iron deficiency anemia (67304723) Iron deficiency anemia (D50.9) Active confirmed Problem Gastritis (1362474) Gastritis (K29.70) Active confirmed Encounters Encounter Location Date Provider Diagnosis [facility] [place] [address] [place] [id number] 03/06/2025 João Leon Jr [facility] [address] [place] [phone] 03/21/2025 João Leon Jr Plan Of Treatment Next Appt Details Provider Name:João yañez Jr, 07/26/2025 02:15:00 PM, [address] [facility], [address], [place], [address], Insurance Providers Payer Name Payer Address Payer Phone Subscriber Number Group Number Insured Name Patient Relationship to Insured Coverage Start Date Coverage End Date [facility] [address] Attn Claims CARLOS Varma [id number] JP MORGAN Self - patient is the insured
--- OUTSIDE RECORDS SUMMARY | 2025-06-28 16:16 | XMS_ITS | Continuity of Care Document ---
Author Name Parish Martinez Address [address] [place] [address] Organization Unknown Address [address] [place] [address] Medications No known medications Problems No known problems
--- OUTSIDE RECORDS SUMMARY | 2025-06-28 16:16 | XMS_ITS | Clinical Summary ---
Author Organization [facility] Address [address] [place] [phone] Phone Care Team Providers Care Field Artillery Fire Control Man Name Role Phone Amanda Watkins MD Primary [...] 12/06/2023, 07/16/2016, 02/17/2013, Additional history exists Insurance [facility] MCR ([id number]) CARLOS LOPES [id number] [place] [id number] [facility] ([id number]) CARLOS LOPES [phone] Care Teams Field Artillery Fire Control Man Relationship Specialty Start Date End Date Amanda Watkins MD [address] [place] [phone] PCP - General Internal Medicine 03/01/23
== END 2025-06-27 10:47 | disposition home or self-care (01) ==
LOC: HO.HOSX 10:46
PROVIDERS: Visit Provider Orthopaedic Surgery
DX: M19.042 Primary osteoarthritis, left hand (principal); M19.041 Primary osteoarthritis, right hand
CPT/HCPCS: 73130; 99202

== ENCOUNTER 2025-07-08 09:39 | Inpatient (IN) | payer OTHER, SELFPAY ==
--- OUTSIDE RECORDS SUMMARY | 2025-03-06 05:50 | XMS_ITS ---
Author Organization [facility] Address [address] [place] [address] Care Team Providers Care Franchise Sales Representative Name Role Phone Amanda Adame M.D. Primary Care Provider Geoff Leon Jr, João Unavailable REASON FOR VISIT anemia Encounters Encounter Location Date Provider Diagnosis [facility] [place] [address] [place], [place] [id number] 03/06/2025 João Leon Jr Plan Of Treatment Next Appt Details Provider Name:João yañez Jr, 07/26/2025 02:15:00 PM, [address], [address], [place], [address], Progress Notes * JP MORGANDOB:[birth year] (75 yo F)Acc No.[id number]:03/06/2025 EGD and COL/MAC Patient: JP HINKLE Provider: Shannan Leon MD :1950 A ge:74 Y S ex:Female Date:03/06/2025 Address:[address] [place] [address] [address] , [place], [place] Pcp:Amanda Adame M.D. Subjective: * Chief Complaints: * A nemia * The named appointment provid er may or may not be the originator of this progress note, and it is not deemed complete until electronically signed by the appointment provider. Sign off status: Pending * Provider: Shannan Leon MD Date: 0 03/06/2025 Generated for Selene garcia/Thad/eTransmitting on: 09/07/2024 11:08 AM EST
[2025-07-08] VITALS (10 sets, daily range): BP systolic 110–189; BP diastolic 44–95; PULSE 56–66; RESP 14–18; TEMP 36.1–36.7; O2SAT 86–100; BMI 39.5; BMI 38.9
--- NOTE | ~2025-07-08 | US_ITS ---
CLINICAL HISTORY: LLE pain Venous duplex ultrasound left lower extremity Comparison: US/SR - US LOWER EXTREMITY VEINS BILATERAL - 03/18/24 12:25 EDT Findings: The left common femoral, greater saphenous, femoral, popliteal and posterior tibial veins are patent. The peroneal vein was not visualized. No popliteal cyst. IMPRESSION: 1. Negative for left lower extremity deep vein thrombosis. This document has been electronically signed by: Herminia Ratliff MD on 07/08/2025 14:06:52
--- NOTE | ~2025-07-08 | CT_ITS ---
CLINICAL HISTORY: sob hypoxia CT chest without contrast Comparison: CT/HI/SR - CT CHEST WO IV CON - 08/02/24 17:22 EST Findings: Mildly enlarged heart. Small amount of pericardial fluid. Moderately severe coronary artery calcification. Small calcification within the right lobe of the thyroid gland. No mediastinal lymphadenopathy. Evaluation of lung parenchyma is mildly limited by artifact. There are minimal ground-glass opacities within the bilateral lungs. There is no consolidation, pleural effusion or pneumothorax. Findings at the level of the abdomen are reported separately. The bones are intact. IMPRESSION: 1. Mild ground-glass opacities within the bilateral lungs most likely secondary to atelectasis. 2. Cardiomegaly. Small amount of pericardial fluid. This document has been electronically signed by: Herminia Ratliff MD on 07/08/2025 16:26:42
--- NOTE | ~2025-07-08 | XR_ITS ---
CLINICAL HISTORY: SOB 1 view chest x-ray Comparison: CR - XR CHEST 1V - 03/03/25 18:18 EDT Findings: Evaluation of the lung parenchyma is limited by body habitus and portable technique. There is a possible focus of consolidation within the retrocardiac region. The right lung is clear. Limited evaluation for pleural fluid. The heart is enlarged. No acute fracture. IMPRESSION: Possible focus of atelectasis or infiltrate within the retrocardiac region. This document has been electronically signed by: Herminia Ratliff MD on 07/08/2025 13:12:36
--- NOTE | ~2025-07-08 | US_ITS ---
CLINICAL HISTORY: RLE pain swelling Venous duplex ultrasound right lower extremity Comparison: US/SR - US LOWER EXTREMITY VEINS BILATERAL - 03/18/24 12:25 EDT Findings: The visualized deep veins are fully compressible with normal Doppler color flow and spectral tracings. No popliteal cyst. IMPRESSION: 1. Negative for right lower extremity deep vein thrombosis. This document has been electronically signed by: Herminia Ratliff MD on 07/08/2025 16:30:26
--- NOTE | ~2025-07-08 | CT_ITS ---
CLINICAL HISTORY: abd pain CT abdomen and pelvis without contrast Comparison: CT/SR - CT ABDOMEN PELVIS W IV CON - 03/03/25 19:45 EDT Findings: Minimal dependent changes at the lung bases. Mild cardiomegaly and a small amount of pericardial fluid, unchanged. There are several kidney cysts. No calculus or hydronephrosis. Normal liver, spleen and adrenal glands. Moderate pancreatic atrophy. There are multiple gallstones. There is no biliary dilatation. Prior ventral hernia repair. No bowel herniation. No bowel edema or obstruction. There are multiple uterine fibroids. There is moderate distention of the urinary bladder. The appendix is normal. The bones are intact. IMPRESSION: 1. Cholelithiasis. 2. Multiple uterine fibroids. This document has been electronically signed by: Herminia Ratliff MD on 07/08/2025 16:01:05
[2025-07-08 10:07] LABS: Glucose, Whole Blood 290 mg/dL (60-115)
[2025-07-08 10:49] LABS: MANUAL DIFF FLAG NO
[2025-07-08 10:51] LABS: Venous Blood Gas Refer to POC result
[2025-07-08 10:52] LABS: Hematocrit 34.6 % (37.0-47.0); Hemoglobin 11.2 g/dl (12.0-16.0); Imm Gran Abs Auto 0.01 X10*3/uL (0.00-0.03); Imm Gran Pct Auto 0.2 % (0.0-0.4); Lymphocytes Absolute Auto 1.2 X10*3/uL (1.2-4.9); Mean Corpuscular HGB Conc 32.4 g/dl (31.0-35.0); Mean Corpuscular Hemoglobin 27.7 pg (27.0-33.0); Mean Corpuscular Volume 85.4 fL (80.0-98.0); NRBC Abs Auto 0.000 X10*3/uL (0.0-0.012); NRBC Pct Auto 0.0 /100WBC (0.0-0.2); Platelet Count 154 X10*3/uL (160-400); Red Blood Count 4.05 X10*6/uL (4.20-5.50); White Blood Count 5.0 X10*3/uL (4.8-10.8)
[2025-07-08 10:52] LABS: VBG HCO3 35 mmol/L (22-26); VBG O2 % Saturation 95.0 %
--- OUTSIDE RECORDS SUMMARY | 2025-07-08 11:08 | XMS_ITS | Patient Health Record ---
Author Organization [facility] Address [address] [facility] [address] [place] [phone] Care Team Providers Care Occupational Health And Safety Officer Name Role Phone Amanda Adame M.D. Primary Care Provider João Woodward Jr [phone] Results Component Value Reference Range Notes Pathology Reviewed date:03/21/2025 08:46:31 AM Interpretation: Performing Lab:[facility], [address] [place] [phone] Notes/Report: Reason For Referral No Information Problems Problem Type SNOMED Code ICD Code Onset Dates Problem Status W/U Status Risk Notes Problem Information temporarily unavailable Iron deficiency anemia (D50.9) Active confirmed Problem Information temporarily unavailable Gastritis (K29.70) Active confirmed Encounters Encounter Location Date Provider Diagnosis [facility] [place] [address] [place] [id number] 03/06/2025 João Leon Jr [facility] [address] [place] [phone] 03/21/2025 João Leon Jr Plan Of Treatment Next Appt Details Provider Name:João yañez Jr, 07/26/2025 02:15:00 PM, [address], [address], [place], [address], Insurance Providers Payer Name Payer Address Payer Phone Subscriber Number Group Number Insured Name Patient Relationship to Insured Coverage Start Date Coverage End Date [facility] [address] Attn Claims CARLOS Varma [id number] FITZ MORGANMEN Self - patient is the insured
--- OUTSIDE RECORDS SUMMARY | 2025-07-08 11:08 | XMS_ITS | Encounter Summary ---
Author Organization [email or web address] Address [address] [facility] 7t [place] [address] Care Team Providers Care Registered Private Duty Nurse Name Role Phone Amanda Watkins MD Primary Care Provide r Hiro Ram CLINIC OFFICE COORDINATOR Unavailable Unavailable Raad Arias PharmD Unavailable [phone] Reason for Visit * Reason Comments Med Refill Encounter Details Date Type Department Care Team (Late st Contact Info) Description 10/16/2024 Refill [facility] [address] [place] [address] Amanda Watkins MD [address] [place] [address] Chronic bilateral low back pain with bilateral [...] EST Office Visit [facility] MED[facility] [address] [place] [address] Amanda Watkins MD [address] [place] [address] 09/21/2025 10:00 AM EST Telemedicine [address] [address] Kayley Alanis RN documented as of this encounter Visit Diagnoses Diagnosis Chronic bilateral low back pain with bilateral sciatica documented in this encounter Additional Health Concerns Assessment Noted Time PHQ-9 Depression Total Score: 0 09/01/19 25 1:18 PM EST documented as of this encounter Care Teams Registered Private Duty Nurse Relationship Specialty Start Date End Date Amanda Watkins MD [address] [place] [address] PCP - General Family Medicine 04/07/19 Hiro Ram FNP [address] [place] [address] Nurse Practitioner Family Medicine 07/06/23 Raad Arias, PharmD [address] [place] [address] CORINNE Peres [address] Pharmacist Internal Medicine 10/19/24 Ja [facility] 08/10/24 03/12/25 [facility] 03/08/25 documented as of this encounter
--- OUTSIDE RECORDS SUMMARY | 2025-07-08 11:08 | XMS_ITS | Encounter Summary ---
Author Organization [employer] Address [address] [facility] 7t [place] [address] Care Team Providers Care Electrician Control Equipment Name Role Phone Amanda Watkins MD Primary Care Provide r Hiro Ram LABOR RELATIONS ANALYST Unavailable Unavailable Raad Arias PharmD Unavailable [phone] Reason for Visit * Reason Comments Med Refill Encounter Details Date Type Department Care Team (Late st Contact Info) Description 09/27/[address] [facility] [address] [place] [address] Ann Kulkarni DO [address] [place] [address] Social History Tobacco Use Types Packs/Day Years [...] [facility] [address] [place] [address] Amanda Watkins MD [address] [place] [address] 09/21/2025 10:[address] [facility] [address] [place] [address] Kayley Alanis RN documented as of this encounter Visit Diagnoses Not on filedocumented in this encounter Additional Health Concerns Assessment Noted Time PHQ-9 Depression Total Score: 0 09/01/19 25 1:18 PM EST documented as of this encounter Care Teams Electrician Control Equipment Relationship Specialty Start Date End Date Amanda Watkins MD [address] [place] [address] PCP - General Family Medicine 04/07/19 Hiro Ram FNP [address] [place] [address] Nurse Practitioner Family Medicine 07/06/23 Raad Arias, PharmD 230 [place] [address] Pharmacist Internal Medicine 10/19/24 Ja [facility] 08/10/24 03/12/25 [facility] 03/08/25 documented as of this encounter
--- OUTSIDE RECORDS SUMMARY | 2025-07-08 11:08 | XMS_ITS | Clinical Summary ---
Author Organization [facility] Address [address] [place] [phone] Phone Care Team Providers Care Sanitation Worker Cleaning Equipment Name Role Phone Amanda Watkins MD [...] Health Maintenance Due Date Last Done Comments Diabetes: Ophthalmology Exam 03/01/2023 Diabetes: Pedal Pulse [...] 12/06/2023, 07/16/2016, 02/17/2013, Additional history exists Insurance [address] [place] [id number] [facility] ([id number]) [facility] ([id number]) Care Teams Sanitation Worker Cleaning Equipment Relationship Specialty Start Date End Date Amanda Watkins MD [address] [place] [phone] PCP - General Internal Medicine 03/01/23
--- OUTSIDE RECORDS SUMMARY | 2025-07-08 11:08 | XMS_ITS | Encounter Summary ---
Author Organization [employer] Address [address] [facility] 7t [place] [address] Care Team Providers Care Pediatrics Hospitalist Name Role Phone Amanda Watkins MD Primary Care Provide r Hiro Ram CLIMATE CHANGE RISK ASSESSOR Unavailable Unavailable Raad Arias PharmD Unavailable [phone] Reason for Visit * Reason Comments Med Refill Encounter Details Date Type Department Care Team (Late st Contact Info) Description 10/10/2024 Refill [facility] PEDS [address] [place] [address] Amanda Watkins MD [address] [place] [address] Social History Tobacco Use Types Packs/Day Years [...] Description 07/09/2025 3:30 PM EST Office Visit [facility] [address] [place] [address] Amanda Watkins MD [address] [place] [address] 09/21/2025 10:00 AM EST Telemedicine [address] [address] Kayley Alanis RN documented as of this encounter Visit Diagnoses Not on filedocumented in this encounter Additional Health Concerns Assessment Noted Time PHQ-9 Depression Total Score: 0 09/01/19 25 1:18 PM EST documented as of this encounter Care Teams Pediatrics Hospitalist Relationship Specialty Start Date End Date Amanda Watkins MD [address] [place] [address] PCP - General Family Medicine 04/07/19 Hiro Ram FNP [address] [place] [address] Nurse Practitioner Family Medicine 07/06/23 Raad Arias, PharmD 230 [place] [address] Pharmacist Internal Medicine 10/19/24 Ja [facility] 08/10/24 03/12/25 [facility] 03/08/25 documented as of this encounter
--- OUTSIDE RECORDS SUMMARY | 2025-07-08 11:08 | XMS_ITS | Encounter Summary ---
Author Organization [employer] Address [address] [facility] 7t [place] [address] Care Team Providers Care Rag Shredder Name Role Phone Amanda Watkins MD Primary Care Provide r Hiro Ram DETECTIVE SERGEANT Unavailable Unavailable Raad Arias PharmD Unavailable Reason for Visit * Reason Onset Date Comments Hospital Follow-up 08/16/2024 Encounter Details Date Type Department Care Team (Late st Contact Info) Description 08/16/2024 Telephone [facility] MEDICINE [address] [place] [address] Amanda Watkins MD [address] [place], [place] [phone] Hospital Follow-up Social History Tobacco Use Types [...] from pt requesting a HDF appt. Hospital: [facility] Date of admission: 08/12/24 Discharge date: 08/15/2024 Diagnosed: (water in the lungs) *Send message to [facility] Clinical Care Coordinators documented in this encounter Plan of Treatment Upcoming Encounters Date Type Department Care Team (Late st Contact Info) Description 07/09/2025 3:30 PM EST Office Visit [facility] MED[facility] [address] [place] [address] Amanda Watkins MD [address] [place] [address] 09/21/2025 10:00 AM EST Telemedicine [address] [address] Kayley Alanis RN documented as of this encounter Visit Diagnoses Not on filedocumented in this encounter Additional Health Concerns Assessment Noted Time PHQ-9 Depression Total Score: 10 024 3:23 PM EDT documented as of this encounter Care Teams Rag Shredder Relationship Specialty Start Date End Date Amanda Watkins MD [address] [place] [address] PCP - General Family Medicine 04/07/19 iHro Ram FNP [address] [place] [address] Nurse Practitioner Family Medicine 07/06/23 Raad Arias, TheaD [address] [place] [address] Pharmacist Internal Medicine 10/19/24 [facility] 07/03/22 08/16/24 Ja [facility] 08/10/24 03/12/25 [facility] 03/08/25 documented as of this encounter
--- OUTSIDE RECORDS SUMMARY | 2025-07-08 11:08 | XMS_ITS | Encounter Summary ---
Author Organization [employer] Address [address] [place] [address] 7t [place] [address] Care Team Providers Care Hay Chopper Name Role Phone Amanda Watkins MD Primary Care Provide r Hiro Ram GAME TESTER Unavailable Unavailable Raad Arias PharmD Unavailable [phone] Encounter Details Date Type Department Care Team ([facility] st Contact Info) Description 09/06/2024 Orders Only [facility] MED [facility] PEDS [address] [place], [place] [phone] MiltonWaldemar Chance MD 505 [place] [address] Social History Tobacco Use Types Packs/Day Years [...] Description 07/09/2025 3:30 PM EST Office Visit [address] [address] Amanda Watkins MD [address] [place] [address] 09/21/2025 10:00 AM EST Telemedicine [address] [address] Kayley Alanis RN documented as of this encounter Visit Diagnoses Not on filedocumented in this encounter Additional Health Concerns Assessment Noted Time PHQ-9 Depression Total Score: 0 09/01/19 25 1:18 PM EST documented as of this encounter Care Teams Hay Chopper Relationship Specialty Start Date End Date Amanda Watkins MD [address] [place] [address] PCP - General Family Medicine 04/07/19 Hiro Ram FNP [address] [place] [address] Nurse Practitioner Family Medicine 07/06/23 Raad Arias, TheaD [address] [place] [address] [place] [address] Pharmacist Internal Medicine 10/19/24 Ja [facility] 08/10/24 03/12/25 [facility] 03/08/25 documented as of this encounter
--- OUTSIDE RECORDS SUMMARY | 2025-07-08 11:08 | XMS_ITS | Data Portability ---
Author Organization [facility], Main Office Address [address] [address] [place] [address] Care Team Providers Care Title One Kindergarten Teacher Name Role Phone EUGENIA FLOWER - 2ND [...] 6.8 hgn 9.7 hct 31.1 Not available 04/18/2024 13:49:59 04/19/2024 04/19/202404/05 na 139 k 5 cre 1.27 wbc 6.8 [address]gn 9[address] DRAFTSPERSON spent >30 minutes with assessment, dx, referral, [...] Address Organization Details Recorded Time Depressive disorder 44959414 Active 2023 HOLDEN LAURENT [address], [address], [place], [address], [facility] 4 12:24:02 Atrial fibrillation 10061738 Active 2023 HOLDEN LAURENT [address], [address], [place], [address], [facility] 4 12:24:20 Obstructive sleep apnea syndrome 48313751 Active 2023 HOLDEN LAURENT [address], [place], [address], [facility] 4 12:24:31 Asthma 619149924 Active 2023 HOLDEN LAURENT [address], [address], [place], [address], [facility] 4 12:24:36 Hypertensive disorder 92025085 Active 2023 HOLDEN LAURENT [address], [address], [place], [address], [facility] 4 12:24:41 Hyperlipidemia 87661761 Active 2023 HOLDEN LAURENT [address], [place], [address], [facility] 4 12:24:47 Retention of urine 845048317 Active 2023 HOLDEN LAURENT [address], [address], [place], [address], [facility] 4 12:24:53 Opioid dependence 59198429 Active 2023 HOLDEN LAURENT [address], [address], [place], [address], [facility] 4 12:25:08 Diabetes mellitus 70798368 Active 2023 HOLDEN LAURENT [address], [address], [place], [address], [facility] 4 12:25:14 Congestive heart failure 83936573 Active 2023 HOLDEN LAURENT [address], [address], [place], [address], [facility] 4 12:25:21 Gastroesophage al reflux disease 310008523 Active 2023 HOLDEN LAURENT [address], [address], [place], [address], [facility] 4 12:25:30 Hypothyroidism 33794320 Active 2023 HOLDEN LAURENT [address], [address], [place], [address], [facility] 4 12:25:37 Cellulitis 395466280 Active [address], [address], [place], [address], [facility] 4 12:26:22 Arterial insufficiency 392438519 Active 2023 HOLDEN LAURENT [address], [address], [place], [address], [facility] 4 12:26:37 Problem Notes None recorded. Medical Equipment None Reported. Allergies Allergen ID Allergen Name Allergen Category Reaction Reaction Severity Criticality Documentation Date Start Date Code Code System Note Provider Name and Address Organization Details Recorded Time 15485 codeine medicatio n Not available Not available Not available 04/08/2024 2670 RxNorm HOLDEN LAURENT [address], [place], [address], [facility] 4 12:38:31 Medications Name Sig Start Date Stop Date Status Note LastModified by Organization Details LastModified Time oxycodone 5 mg tablet Take 1 tablet every 6 hours by oral route as needed. 024 active Not Available Not Available Not Avai lable Vitals Date Recorded Body height Body mass index (BMI) Body weight Heart rate Respiratory rate Body temperature Oxygen saturation Systolic And Diastolic Provider Name and Address Organization Details Last Updated DateTime 4 152.4 cm 48.5 kg/m2 715864. 27 g 53 /min 18 /min 98.6 [degF] 98 % 149/77 mm[Hg] Genny Aguilar MD [address] [facility], [address], [place], [address], [facility] 4 21:34:16 Date Recorded Body height Heart rate Respiratory rate Body temperature Oxygen saturation Systolic And Diastolic Provider Name and Address Organization Details Last Updated DateTime 4 152.4 cm 54 /min 18 /min 98.1 [degF] 96 % 175/90 mm[Hg] IBETH PRICE NP [address] [facility], [address], [place], [address], [facility] 4 13:49:23 Date Recorded Body height Body mass index (BMI) Body weight Heart rate Respiratory rate Body temperature Oxygen saturation Systolic And Diastolic Provider Name and Address Organization Details Last Updated DateTime 4 152.4 cm 48.4 kg/m2 157495. 91 g 68 /min 18 /min 98.1 [degF] 96 % 132/72 mm[Hg] Raiza Madsen NP [address] [facility], [address], [place], [address], [facility] 4 08:19:33 Social History Question Answer Notes LastModified by Organizat ion Details LastModified Time Tobacco Smoking Status Never Smoker Genny Aguilar MD [address] [facility], [facility] [address], [place], [address], [facility] 04/11/2024 21:50:08 Do You Have An Advance Directive? Yes Information not available 04/11/2024 What Is Your Code Status? Full Code Information not available 04/11/2024 Where Do You Live? Apartment With Sister, Elevator Access. Information not available 04/11/2024 Legal Guardian? No Information not available 04/11/2024 Do You Have A Medical Power Of Reinforced Ironworker? Yes Information not available 04/11/2024 What Was [...] ICD10 Code Diagnosis IMO Codes Diagnosis Note [id number] HOLDEN LAURENT [address] [address] 04/08/2024 12:12:39 04/13/2024 15:07:34 Cellulitis 292851965 L03.90 completed antbx for LE cellulitis in ED = did not feel it was recurrence of an acute infectionh /o chronic lymphedema -monitor ss of infection- bacitracin topical to BL legs daily-oxyc odone 5 mg q6h prn for pain Arterial insufficiency 865657611 I77.1 -f/up with vascular per recs needs to be arranged-s ee above Retention of urine 40357 4002 R33.9 unable to urinate since coming from [facility] to facility-w ill order PVR, [place] for PVR >400 cc Atrial fibrillation 4943 6004 I48.91 carrying dx-amiodar one 200 mg daily-eliq uis 5 mg bid-monito r HR and bleeding Hypertensive disorder 38 593312 I10 carrying dx-amlodip ine 10 mg daily-leonardo tor BP Depressive disorder 3548 9007 F32.A carrying dx-duloxet ine 20 mg daily-paxi l 40 mg daily-leonardo tor mood and affect-psy ch eval prn Congestive heart failure 68150049 I50.9 carrying dxnot on diuretics- metoprolol 50 mg daily-farx iga 10 mg daily-leonardo tor fluid status closely-da sacha weights Diabetes mellitus 270903 09 E11.9 carrying dxjardianc e was given once in hospital, dont see it on her home med list or dc med list = asked nursing to ask dtr-lantus 65 units HS-monitor accuchecks TID Hypothyroidism 52922418 E03.9 carrying dx-synthro id 50 mcg po in am-TSH/T4 prn Hyperlipidemia 95602954 E78.5 carrying dx-lipitor 80 mg daily Gastroesop hageal reflux disease 907352965 K21.9 carrying dx-omepraz ole 40 mg po daily Obstructiv e sleep apnea syndrome 06348875 G47.33 intermitte nt CPAP use at home Opioid dependence 988627 00 F11.20 -monitor needed support in community- on oxycodone for leg pain = monitor usage and wean as tolerated 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 Arterial insufficiency 427337527 I77.1 F/U with vascular as planned.Mo rubén ramos n. Retention of urine 48839 4002 R33.8 Improved, continue to monitor. Atrial fibrillation 4943 6004 I48.0 Rate in good control on amiodarone 200 mg daily and metoprolol 50 mg daily.Cont inue eliquis 5 mg BID for AC.Monitor HR and bleeding risk. Hypertensive disorder 38 059046 I10 Fair control on amlodipine 10 mg daily and metoprolol 50 mg daily.Leonardo tor BP and labs. Depressive disorder 3548 9007 F33.8 Mood good tonight, aside form wanting to go home.Nicanor nue duloxetine 20 mg daily, paroxetine 40 mg daily, trazadone 50 mg at bedtime, and melatonin 5 mg at bedtime.Anthony [place] moodPsych consult prn Congestive heart failure 34216623 I50.32 Appears euvolemic. Continue meds as above and Farxiga 10 mg daily.Leonardo tor resp. status, fluid status, wts and labs. Diabetes mellitus 839660 09 E11.9 In good control since here.Nicanor nue lantus 65 units daily and Farxiga 10 mg daily.Leonardo tor accuchecks TID Hypothyroidism 52193442 E03.8 Continue levothyrox ine 50 mcg dailyMonit or TSH prn. Hyperlipidemia 39570393 E78.49 Continue atorvastat in 80 mg dailyMonit or labs as outpt. Gastroesop hageal reflux disease 528261665 K21.9 No current sxs.Contin ue omeprazole 40 mg dailyMonit or GI sxs. Obstructiv e sleep apnea syndrome 95187166 G47.33 Continue CPAP with sleep.F/U prn. Opioid dependence 669517 00 F11.20 On oxycodone chronicall y.Monitor use and f/u with pcp as planned. Candidiasis of vagina 72 404291 B37.31 Not improving with nystatin.W ill start diflucan 150 mg x 1 and repeat in 1 wk. [id number] IBETH PRICE NP [address] [address] 04/18/2024 08:27:20 04/19/2024 14:02:05 Cellulitis 610171108 L03.116 Improved. now with healing woundsdiph enhydramin [...] BMP x 1 in am Arterial insufficiency 114175132 I77.1 F/U with vascular as planned.Anthony merazRefer to [facility] for outpt. mgmt. upon d/c. Retention of urine 61209 4002 R33.8 Improved, continue to monitor. Atrial fibrillation 4943 6004 I48.0 Rate in good control on amiodarone 200 mg daily and metoprolol 50 mg daily.Cont inue eliquis 5 mg BID for AC.Monitor HR and bleeding risk. Hypertensive disorder 38 246614 I10 Fair control on amlodipine 10 mg [...] [place] mood[place] consult prn Congestive heart failure 24078632 I50.32 Appears euvolemic. Continue meds as above and Farxiga 10 mg daily.Leonardo tor resp. status, fluid status, wts and labs. Diabetes mellitus 590819 09 E11.9 In fair control since here.Nicanor nue lantus 65 units daily and Farxiga 10 mg daily.Leonardo tor accuchecks TID Hypothyroidism 08329596 E03.8 Continue levothyrox ine 50 mcg dailyMonit or TSH prn. Hyperlipidemia 71024237 E78.49 Continue atorvastat in 80 mg dailyMonit or labs as outpt. Gastroesop hageal reflux disease 758889553 K21.9 No current sxs.Contin ue omeprazole 40 mg dailyMonit or GI sxs. Obstructiv e sleep apnea syndrome 60738351 G47.33 Continue CPAP with sleep.F/U prn. Opioid dependence 419236 00 F11.20 On oxycodone chronicall y.Monitor use and f/u with pcp as planned. Candidiasis of vagina 72 605722 B37.31 Not improving with nystatin.D iflucan 150 mg x 1 given, to repeat in 1 wk. [id number] Raiza Madsen NP [address] [address] 04/19/2024 08:18:47 04/20/2024 13:31:13 Cellulitis 711601779 L03.116 resolved with abx in hospitalno w [...] pcp, and wound clinica oupt Arterial insufficiency 768400763 I77.1 F/U with vascular as planned.Re marichuy to [facility] for outpt. mgmt. upon d/c. (referral given)vna services outpt with pcp to follow outpt with wound clinic Retention of urine 34317 4002 R33.8 Improved, continue to monitor. Atrial fibrillation 4943 6004 I48.0 Rate in good control on amiodarone 200 mg daily and metoprolol 50 mg daily.Cont inue eliquis 5 mg BID for AC.Monitor outpt with pcp and cardiology outpt Hypertensive disorder 38 456852 I10 hospital dc'd losartan 50 mg po [...] outptPsych consult prn outpt Congestive heart failure 47355667 I50.32 Appears euvolemic. Continue meds as above and Farxiga 10 mg daily.Leonardo tor outpt with pcp Diabetes mellitus 536151 09 E11.9 In fair control since here. 100-200s? if higher 200s related to infectiona lso glipizide and metformin was dc in hosp for ckd, monitor for need to add with pcp outptConti nuelantus 65 units dailyFarxi ga 10 mg daily.Leonardo tor accuchecks TID at home and bring log to pcp on 04/26/24. Hypothyroidism 58294044 E03.8 Continuele vothyroxin e 50 mcg dailyMonit or TSH prn outpt withpcp Hyperlipidemia 78960178 E78.49 Continue atorvastat in 80 mg dailyMonit or labs as outpt. Gastroesop hageal reflux disease 739769396 K21.9 No current sxs.Contin ueomeprazo le 40 mg dailyMonit or GI sxs. outpt with pcp Obstructiv e sleep apnea syndrome 18046604 G47.33 Continue CPAP with sleep.F/U prn outpt prn Opioid dependence 467719 00 F11.20 On oxycodone chronicall y.will cont on home dose and since on chronicall y will not send with any additional oxycodoneM onitor use and f/u with pcp as planned outpt Candidiasis of vagina 72 596923 B37.31 Not improving with nystatin.D iflucan 150 mg x 1 given at rehabmonit or with pcp outpt Chronic ki dney disease 087276768 N18.9 ckd per hosp paperwork with meds adjusted:g lipizide, losartan, furosemide , and metformin were dc'dlabs as above stablemoni tor labs and need to adjust outpt with pcp Pain in le ft lower limb 623091884 M79.605 gilbert was ready for discharge and now reporting left lower leg pain and states she can't put weight on itwhen attempting to get dressed for homefamily refuses therapy eval and xray here,famil y requests 911 call, and emergent evaluation at [facility] Health Concerns Section Related Observation LastModified by Organization Detai ls LastModified Time None Recorded Concern Status LastModified by Organization Details LastModified Time None Recorded Advance Directives Directive Y: Payers Insurance Date Sequence Insurance Name Policy Number Policy Meza Covered Member ID Meza Member ID Guarantor Name 04/19/2024 1 [facility] - DOS ON OR AFTER 2022 - MEDICARE ADVANTAGE [place] (MEDICARE REPLACEMENT/ADV ANTAGE - PPO) Mary Lou Cisneros [id number] Mary Lou Cisneros Notes Date Note Type Note Provider Name and Address Organization Details Recorded Time 04/08/2024 text/html Patient is a 73 yo female being seen for initial intake visit. She presented to [facility] for eval of left leg pain. [...] of this occurring while she was at [facility] and she did not have [...] opiate dependence, hld, htn, DM REBECA SOTOMAYOR, ROAD DESIGN DRAFTSPERSON-C [address] [place] [address], [address], [place], [address], [facility] 04/08/2024 13:05:26 04/11/2024 text/html This is a 73 yo woman who is here for rehab after an ED visit for left leg pain after recovery from recent cellulitis.[facility], txed with ceftriaxone and [...] for most activities.I see her with a maltese speaking staff member.She is in bed, wakes [...] OA, OP, and fibromyalgia. Genny Aguilar MD [address] [place] [address], [address], [place], [address], [facility] 04/14/2024 20:04:50 04/18/2024 text/html This is a 73 yo woman who is here for rehab after an ED visit for left leg pain after recovery from recent cellulitis.[facility], txed with ceftriaxone and [...] OP, and fibromyalgia. IBETH PRICE, OSITO [address] [facility], [address], [place], [address], [facility] 04/18/2024 14:21:33 04/19/2024 text/html This is [...] note per records:[facility], txed with ceftriaxone and [...] outpt with pcp She was transferred to [facility] for rehab on 04/08 and working with rehab showing improvement and felt she is stable to discharge home. Vitals stable here and BP labile, last at 132/72 this am. While at [facility] she was seen by the [...] 2024. She will be picked up by [facility] @ 1:00 PM. A referral has been made to [facility] for ongoing skilled services. She will be [...] 2024. She will be picked up by [facility] @ 1:00 PM. A referral has been made to [facility] for ongoing skilled services. She will be [...] she goes home from ER. discussed with supervisor road administrator at facility Raiza Madsen NP [address] [facility], [address], [place], [address], [facility] 04/19/2024 13:13:44 OBGyn Episode No OBEpisode recorded.
--- OUTSIDE RECORDS SUMMARY | 2025-07-08 11:08 | XMS_ITS | Clinical Summary ---
Author Organization [employer] Address [address] [place] [address] [address] [place] [address] Care Team Providers Care Hand Paint Mixer Name Role Phone Amanda Watkins MD Primary Care Provide r Hiro Ram REPLENISHMENT BUYER Unavailable Unavailable Raad Arias PharmD Unavailable [phone] Allergies Active Allergy Reactions Criticality Noted Date [...] sugar 3 times daily 100 each 12 07/04/20 25 5:01 PM EST 024 2024 Active Blood Glucose Monitoring Suppl (FreeStyle Kosse Lite) w/Device kitIndications:Ty pe 2 diabetes mellitus [...] CRUSH, DISSOLVE OR CHEW 30 capsule 11 07/04/20 5:01 PM EST Active hydrOXYzine HCl (Atarax) 25 MG tablet Take 1 tablet (25 mg) by mouth every 8 (eight) hours if needed for anxiety. 90 tablet Active insulin degludec (Tresiba FlexTouch) 200 UNIT/ML injectionIndicati ons:Type 2 diabetes mellitus with hyperglycemia, with long-term current use of insulin ([facility]) Inject 64 units under the skin daily 18 mL 5 Active traZODone (Desyrel) 150 MG tabletIndications :Recurrent [...] AND AT BEDTIME 180 tablet 1 Active albuterol (2.5 MG/3ML) 0.083% nebulizer solution [...] within 12 hours or as directed by . 30 patch 1 Active ketoconazole (NIZOral) 2 % shampooIndication s:Seborrheic dermatitis Apply topically 2 (two) times a week. 120 mL 2 025 Active amLODIPine (Norvasc) 5 MG tablet TAKE 1 TABLET BY MOUTH EVERY MORNING 30 tablet 3 07/04/20 5:01 PM EST 025 Active Alcohol Swabs (Alcohol Prep) 70 % padsIndications:T ype 2 diabetes mellitus with hyperglycemia ([facility]) USE DIRECTED TO TEST BLOOD SUGAR THREE TIMES DAILY 100 each 07/04/20 5:01 PM EST Active Ferrocite 324 MG tablet Take 1 tablet by mouth Once per day. 025 Active Continuous Glucose Fusing Furnace Loader (FreeStyle Mickey 3 [place]) deviceIndications :Type 2 diabetes mellitus with diabetic [...] days as directed for CGM 2 each 07/04/20 5:01 PM EST Active atorvastatin (Lipitor) 80 MG tablet TAKE [...] (one) time per week. 2 mL 1 07/04/20 5:01 PM EST Active torsemide (Demadex) 20 MG tablet TAKE 1 TABLET BY MOUTH EVERY MORNING 30 tablet 3 07/04/20 5:01 PM EST 025 Active docusate sodium (Colace) 100 MG capsuleIndication s:Slow transit constipation TAKE 1 CAPSULE BY MOUTH TWICE DAILY 60 capsule 3 07/04/20 5:01 PM EST 025 Active DULoxetine (Cymbalta) [address] capsule TAKE 1 CAPSULE BY MOUTH EVERY MORNING 30 capsule 1 07/04/20 5:01 PM EST 025 Active Eliquis 5 MG tabletIndications :Atrial fibrillation, unspecified type (CMS/HCC) ([facility]) TAKE 1 TABLET BY MOUTH TWICE DAILY IN THE MORNING AND AT BEDTIME 60 tablet 2 Active melatonin 5 MG tabletIndications :Primary insomnia TAKE 1 TABLET BY MOUTH AT BEDTIME 90 tablet 07/04/20 5:01 PM EST Active melatonin 5 MG tabletIndications :Primary insomnia Take 1 tablet (5 mg) by mouth at bedtime. 90 tablet Active pen needle 32G x 4 mm miscIndications:T ype 2 diabetes mellitus with hyperglycemia, with long-term current use of insulin ([facility]) Use daily with insulin 100 each 3 07/04/20 5:01 PM EST 025 2025 Active pen needle 32G x 4 mm miscIndications:T ype 2 diabetes mellitus with hyperglycemia, with long-term current use of insulin ([facility]) Use daily with insulin 100 each 3 025 2024 Discontinued(R eorder (will not trigger notification to Pharmacy)) Eliquis 5 MG tabletIndications :Atrial fibrillation, unspecified type (CMS/HCC) (HCC) TAKE 1 TABLET BY MOUTH TWICE DAILY IN THE MORNING AND AT BEDTIME 60 tablet 2 025 2024 Discontinued melatonin 5 MG tabletIndications :Primary insomnia Take 1 tablet (5 mg) by mouth at bedtime. 90 tablet 025 2024 Discontinued(R eorder (will not trigger notification to Pharmacy)) oxyCODONE-acetami nophen (Percocet) 5-325 MG tabletIndications :Chronic bilateral low back pain with bilateral sciatica Take 1 tablet by mouth every 6 (six) hours if needed for severe pain for up to 28 days. 112 tablet 025 2024 Active Problems Problem Noted [...] Assessment & Plan (09/14/2024 6:46 PM EST): Laryngologist referral done today I advised not to [...] for patient Stage 3b chronic kidney disease ([facility]) 2023 Arthritis 04/24/2024 Bronchitis 04/24/2024 Obesity 04/24/2024 Atrial fibrillation ([facility]) 04/08/2024 Assessment & Plan (02/15/2025 10:55 AM [...] (12/06/2023 2:13 PM EDT): I will follow [facility] instructions and I will change [...] medications every day I advised low-sodium diet Laryngologist referral done today I advised to monitor [...] retiring, patient will be transferred to new [facility] psychiatric provider. Patient is aware that appointments will be via televisit. Any issues or concerns contact [facility]. 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 [address] [place] [phone] Amanda Watkins MD Type 2 diabetes mellitus with hyperglycemia, with long-term current use of insulin (HCC) 07/02/[address] [facility] [address] [place] [phone] Amanda Watkins MD Nurse Triage 06/29/[address] [facility] [address] [place] [phone] Amanda Watkins MD letter of medical necessity 06/26/[address] [phone] Amanda Watkins MD Prior Authorization (PA: Lidocaine 5% Patch) 06/26/[address] [facility] [address] [place] [phone] Amanda Watkins MD 06/21/[address] [phone] Amanda Watkins MD Durable Medical Equipment (DME: premium external urinary catheter) 06/21/[address] [facility] [address] [place] [phone] Amanda Watkins MD Primary insomnia 06/20/[address] [facility] [address] [place] [phone] Amanda Watkins MD Primary insomnia 06/16/[address] [facility] [address] [place] [phone] Amanda Watkins MD Atrial fibrillation, unspecified type (CMS/HCC) (HCC) 06/13/2025 Orders Only GENERIC EXTERNAL DATA DEPARTMENT Provider, Generic External Data 06/12/2025 Orders Only GENERIC EXTERNAL DATA DEPARTMENT Provider, Generic External Data 06/11/2025 Orders Only GENERIC EXTERNAL DATA DEPARTMENT Provider, Generic External Data 06/08/2025 2:[address] [facility] [address] [place] [address] Kayley Alanis, PHILLIP Long-term current use of opiate analgesic 06/08/[address] [facility] [address] [place] [phone] Kayley Alanis RN Chronic bilateral low back pain with bilateral sciatica 06/08/2025 Travel 06/05/[address] [phone] Amanda Watkins MD Call Back Request 06/04/2025 Patient Outreach [facility] [address] [place] [address] Amanda Watkins MD 06/03/2025 Orders Only GENERIC EXTERNAL DATA DEPARTMENT Provider, Generic External Data 05/31/[address] [facility] [address] [place] [phone] Kayley Alanis, PHILLIP Schedule Tele [employer] RV 05/30/2025 Orders Only GENERIC EXTERNAL DATA DEPARTMENT Provider, Generic External Data 05/29/2025 Orders Only GENERIC EXTERNAL DATA DEPARTMENT Provider, Generic External Data 05/29/[address] [facility] [address] [place] [phone] Amanda Watkins MD Med Refill 05/28/[address] [facility] [address] [place] [phone] Amanda Watkins MD Chronic bilateral low back pain with bilateral sciatica 05/25/[address] [facility] [address] [place] [phone] Amanda Watkins MD Chronic bilateral low back pain with bilateral sciatica (Primary Dx) 05/24/[address] [facility] [address] [place] [phone] Amanda Watkins MD 05/16/[address] [facility] [address] [place] [phone] Amanda Watkins MD Type 2 diabetes mellitus with diabetic autonomic neuropathy, with long-term current use of insulin ([facility]); Slow transit constipation 05/08/2025 10:15 AM EDT Office Visit [facility] [address] [place] [phone] Amanda Watkins MD Fibromyalgia (Primary Dx); Degenerative arthritis of thumb, right; Chronic pain of both shoulders; Type 2 diabetes mellitus with hyperglycemia, with long-term current use of insulin ([facility]) 05/08/2025 Travel 05/07/[address] [facility] [address] [place] [address] [phone] Amanda Watkins MD 05/07/[address] [facility] [address] [place] [phone] Amanda Watkins MD Chart Prep 05/07/[address] [facility] [address] [place] [phone] Amanda Watkins MD 05/04/[address] [facility] [address] [place] [phone] Amanda Watkins MD Medication Question 04/30/[address] [facility] [address] [place] [address] [phone] Amanda Watkins MD Appointment Request 04/23/2025 Patient Outreach [facility] [address] [place] [address] Amanda Watkins MD Pre-visit Planning (HDF scheduled. ) 04/23/[address] [facility] [address] [place] [address] Aamnda Watkins MD 04/19/[address] [facility] [address] [place], [place] [phone] Amanda Watkins MD 04/17/2025 Orders Only GENERIC EXTERNAL DATA DEPARTMENT Provider, Generic External Data 04/17/[address] [facility] [address] [place] [address] Amanda Watkins MD Nurse Triage 04/16/2025 Travel 04/13/[address] [facility] [address] [place] [address] Kayley Alanis RN Chronic bilateral low back pain with bilateral sciatica (Primary Dx) 04/11/[address] [facility] [address] [place] [address] Amanda Watkins MD Type 2 diabetes mellitus with hyperglycemia ([facility]) 04/08/[address] [facility] [address] [place], [place] [phone] Amanda Watkins MD from Last 3 Months [...] 07/09/2025 3:30 PM EST Office Visit [facility] [address] [place] [phone] Amanda Watkins MD [address] [place] [address] 09/21/2025 10:[address] [facility] [address] [place] [phone] Kayley Alanis, PHILLIP Health Maintenance Due Date Last Done Comments Diabetes: Foot Exam 1960 Eye Exam 1960 [...] on patient's age to complete this topic Goals Goal Patient Goal Type Associated Problems Recent Progress Patient-Stated? Author Help patients manage their type 2 diabetes Care Plan Help patients manage their type 2 diabetes No Ann Farley, PharmD Weekly blood pressure task Care Plan Weekly blood pressure task No Ann Farley, PharmD Help patients manage their type 2 diabetes Care Plan Help patients manage their type 2 diabetes No Ann Farley, PharmD Patient has chronic kidney disease Care Plan Patient has chronic kidney disease No Ann Farley, PharmD Weekly blood pressure task Care Plan Weekly blood pressure task No Ann Farley, PharmD Patient has chronic kidney disease Care Plan Patient has chronic kidney disease No Ann Farley, PharmD Weekly blood pressure task Care Plan Weekly blood pressure task No Jeff Stanford Weekly blood pressure task Care Plan Weekly blood pressure task No Jeff Stanford Patient has chronic kidney disease Care Plan Patient has chronic kidney disease No Jeff Stanford Patient has chronic kidney disease Care Plan Patient has chronic kidney disease No Jeff Stanford Weekly blood pressure task Care Plan Weekly blood pressure task No Serena Victor Weekly blood pressure task Care Plan Weekly blood pressure task No Serena Victor Patient has chronic kidney disease Care Plan Patient has chronic kidney disease No Serena Victor Patient has chronic kidney disease Care Plan Patient has chronic kidney disease No Serena Victor Weekly blood pressure task Care Plan Weekly blood pressure task No Margie Sánchez Weekly blood pressure task Care Plan Weekly blood pressure task No Margie Sánchez Patient has chronic kidney disease Care Plan Patient has chronic kidney disease No Margie Sánchez Patient has chronic kidney disease Care Plan Patient has chronic kidney disease No Gonzalo Margie Weekly blood pressure task Care Plan Weekly blood pressure task No Sohail Louisua Weekly blood pressure task Care Plan Weekly blood pressure task No Heriberto Ronan Patient has chronic kidney disease Care Plan Patient has chronic kidney disease No Heriberto Ronan Patient has chronic kidney disease Care Plan Patient has chronic kidney disease No Ronan Louis Weekly blood pressure task Care Plan Weekly blood pressure task No StanfordJeff allen Weekly blood pressure task Care Plan Weekly blood pressure task No StanfordJeff allen Patient has chronic kidney disease Care Plan Patient has chronic kidney disease No Jeff Stanford Patient has chronic kidney disease Care Plan Patient has chronic kidney disease No Jeff Stanford Weekly blood pressure task Care Plan Weekly blood pressure task No Hugh Angel Weekly blood pressure task Care Plan Weekly blood pressure task No SantjanieuiHugh rascon Patient has chronic kidney disease Care Plan Patient has chronic kidney disease No OrenuiHugh rascon Patient has chronic kidney disease Care Plan Patient has chronic kidney disease No Santtitoaguil Hugh newman Procedures Procedure Name Priority Date/Time Associated Diagnosis Comments GLUCOSE, WHOLE BLOOD Routine 06/13/2025 7:14 AM EST URINALYSIS, COMPLETE, WITH REFLEX TO CULTURE Routine 06/13/2025 6:31 AM EST URINALYSIS WITH REFLEX MICROSCOPIC Routine 06/13/2025 6:31 AM EST GLUCOSE, WHOLE BLOOD Routine 06/13/2025 5:59 AM EST GLUCOSE, WHOLE BLOOD Routine 06/12/2025 6:54 PM EST HIGH SENSITIVITY TROPONIN I Routine 06/12/2025 6:34 PM EST XR KNEE 4+ VIEWS RIGHT Routine 5:47 PM EST GLUCOSE, WHOLE BLOOD Routine 06/12/2025 5:04 PM [...] hyperglycemia, with long-term current use of insulin ([facility]) POCT GLUCOSE Routine 05/08/2025 10:52 AM EDT Type 2 diabetes mellitus with hyperglycemia, with long-term current use of insulin ([facility]) CT SHOULDER WO CONTRAST RIGHT Routine 04/17/2025 9:23 PM EDT LACTIC ACID Routine 04/17/2025 10:07 AM EDT LIPID PANEL, STANDARD Routine 09/01/2024 2:09 PM EST ALBUMIN, RANDOM URINE W/CREATININE Routine 08/04/2021 10:15 AM EST from Last 3 Months or Most Recently Relevant to Health Maintenance Results * (ABNORMAL) Glucose, Whole Blood (06/13/2025 7:14 AM EST) Only the most recent of13 resultswithin the time period is included. [facility] Glucose, Whole Blood 317(H) 60 - 115 mg/dL [facility] Comment:METER #: [id number] 06/13/2025 7:14 AM EST 06/13/2025 7:18 AM EST us Generic External Data Provider LAB BLOOD ORDERAB LES Final Result [facility] [address] [place] [phone] * (ABNORMAL) Urinalysis, Complete, with Reflex to Culture (06/13/2025 6:31 AM EST) Only the most recent of3 resultswithin the time period is included. Pathologist [facility] Color Urine Yellow [facility] Appearance Urine Clear [facility] PH 5.5 5.0 - 9.0 [facility] Glucose Urine UA >=1000(A) Negative mg/dL [facility] Urine Blood Negative Negative [facility] Specific [place] - Urine 1.020 1.005 - 1.025 [facility] Urine Protein Negative Neg-Trace mg/dL [facility] Urine Ketones Negative Negative mg/dL [facility] Nitrite Urine Negative Negative [facility] Leukocyte Esterase Urine Trace(A) Negative [facility] RBC Urine 0-2 0 - 2 /HPF [facility] Urine WBC 0-5 0 - 5 /HPF [facility] Urine Squamous Epithelial Cell 0-2 0 - 2 /HPF [facility] Urine Bacteria 2+ None Seen [facility] Hyaline Casts, Urine 0-2 0 - 2 /LPF [facility] 06/13/2025 6:31 AM EST 06/13/2025 6:33 AM EST Narrative [facility] - 06/13/2025 6:49 AM EST Urine, Clean Catch us Generic External Data Provider LAB URINE ORDERAB LES Final Result Performing Organization Address [facility] Co de Phone Number [facility] [address] [place] [phone] * (ABNORMAL) Urinalysis w/reflex microscopic (06/13/2025 6:31 AM EST) Color Urine [facility] Appearance Urine Clear [facility] PH 5.5 5.0 - 9.0 [facility] Glucose Urine UA >=1000(A) Negative mg/dL [facility] Urine Blood Negative Negative [facility] Specific [place] - Urine 1.020 1.005 - 1.025 [facility] Urine Protein Negative Neg-Trace mg/dL [facility] Urine Ketones Negative Negative mg/dL [facility] Nitrite Urine Negative Negative [facility] Leukocyte Esterase Urine Trace(A) Negative [facility] 06/13/2025 6:31 AM EST 06/13/2025 6:33 AM EST Narrative [facility] - 06/13/2025 6:48 AM EST Urine, Clean Catch us Generic External Data Provider LAB URINE ORDERAB LES Final Result Performing Organization Address [facility] Co de Phone Number [facility] [address] [place] [phone] * High Sensitivity Troponin I (06/12/2025 6:34 PM EST) Only the most recent of3 resultswithin the time period is included. Pathologist [facility] TROPONIN I HIGH SENSITIVITY 8.9 <3.5 - 17.0 ng/L [facility] Comment:The [place] high sens itivity Troponin-I results should beused in conjunction with other diagnostic information suchas ECG, clinical observations and information, and patientsymptoms to aid in the diagnosis of [place]. 06/12/2025 6:34 PM EST 06/12/2025 6:36 PM EST us Generic External Data Provider LAB BLOOD ORDERAB LES Final Result Performing Organization Address [facility] Co de Phone Number [facility] [address] [place] [phone] * XR Knee 4+ Views Right (06/12/2025 5:47 PM EST) Anatomical Region Laterality Modality Lower Extremities, Knee Right Radiogra phic Imaging 06/12/2025 5:47 PM EST Narrative 06/12/2025 5:48 PM EST [address] [address] XRay Report Signed Patient: Mary Lou Godwin MR#: [id number] : 1950 Acct:[id number] Age/Sex: 74 / F ADM Date: 06/12/25 Loc: HO.ED Attending Dr: Ordering Physician: Kristi Delvalle Date of Service: 06/12/25 Procedure(s): XR knee RT 4V Accession Number(s): [id number] cc: Amanda Watkins MD; Kristi Delvalle Reason for Exam: pain s/p FOOB CLINICAL HISTORY: pain s p FOOB 4 views right knee Comparison: None Findings: No fractures or dislocations. No joint effusion. There is mild medial compartment joint space narrowing with moderate medial compartment spurring. Very minimal lateral compartment spurring is present.. No radiopaque foreign body. Impression: 1. Medial compartment predominant degenerative disease as described above. This document has been electronically signed by: Jhon Yousif MD on 06/12/2025 17:47:15 Dictated By: Jhon Yousif MD Signed By: <Electronically signed by Jhon Yousif MD in OV> 06/12/251746 DD/ 46 TD/TT: 06/12/251746 Manager Registration: Procedure Note Donotuseinterpreter, Image - 06/12/[address] [address] XRay Report Signed Patient: Mary Lou Godwin ZMR#: [id number] : 1950cct:[id number] Age/Sex: 74 / FADM Date: 06/12/25 Loc: .ED Attending Dr: Ordering Physician: Kristi Delvalle Date of Service: 06/12/25 Procedure(s): XR knee RT 4V Accession Number(s): [id number] cc: Amanda Watkins MD; Kristi Delvalle Reason for Exam: pain s/p FOOB CLINICAL HISTORY: pain s p FOOB 4 views right knee Comparison: None Findings: No fractures or dislocations. No joint effusion. There is mild medial compartment joint space narrowing with moderate medial compartment spurring. Very minimal lateral compartment spurring is present.. No radiopaque foreign body. Impression: 1. Medial compartment predominant degenerative disease as described above. This document has been electronically signed by: Jhon Yousif MD on 06/12/2025 17:47:15 Dictated By: Jhon Yousif MD Signed By: <Electronically signed by Jhon Yousif MD in OV> 06/12/251746 DD/ 46 TD/TT: 06/12/251746 Manager Registration: [facility] External Provider IMG XR PROCEDURES Final Result * (ABNORMAL) VENOUS BLOOD GAS (06/12/2025 3:41 PM EST) Only the most recent of3 resultswithin the time period is included. VBG pH 7.47(H) 7.32 - 7.43 [facility] Comment:METER #: [id number] additional_comment: Huseyin mancini VBG PCO2 43 mmHg [facility] Comment:METER #: [id number] additional_comment: Huseyin mancini VBG PO2 42 mmHg [facility] Comment:METER #: [id number] additional_comment: Huseyin mancini VBG Base Excess 8.2 mmol/L [facility] Comment:METER #: [id number] additional_comment: Huseyin mancini VBG HCO3 32(H) 22 - 26 mmol/L [facility] Comment:METER #: [id number] additional_comment: Huseyin mancini O2 Sat, Samuel 67.0 % [facility] Comment:METER #: [id number] additional_comment: Huseyin mancini 06/12/2025 3:41 PM EST 06/12/2025 3:44 PM EST Generic External Data Provider LAB BLOOD ORDERAB LES Final Result [facility] [address] [place] [address] [phone] * Beta-Hydroxybutyrate (06/12/2025 3:35 PM EST) Only the most recent of2 resultswithin the time period is included. Beta-Hydroxybut yrate 0.12 0.02 - 0.27 mmol/L [facility] 06/12/2025 3:35 PM EST 06/12/2025 3:39 PM EST us Generic External Data Provider LAB BLOOD ORDERAB LES Final Result [facility] [address] [place] [address] [phone] * (ABNORMAL) CBC auto differential (06/12/2025 3:35 PM EST) Only the most recent of2 resultswithin the time period is included. White Blood Count 4.9 4.8 - 10.8 X10*3/uL [facility] Red Blood Count 4.51 4.20 - 5.50 X10*6/uL [facility] Hemoglobin 12.0 12.0 - 16.0 g/dl [facility] Hematocrit 37.4 37.0 - 47.0 % [facility] Mean Corpuscular Volume 82.9 80.0 - 98.0 fL [facility] Mean Corpuscular Hemoglobin 26.6(L) 27.0 - 33.0 pg [facility] Mean Corpuscular HGB Conc 32.1 31.0 - 35.0 g/dl [facility] Red Cell Distribution Width 14.8 11.0 - 16.0 % [facility] Platelet Count 226 160 - 400 X10*3/uL [facility] Mean Platelet Volume 10.2 9.4 - 12.3 fL [facility] Neutrophils Percent Auto 59.0 45 - 73 % [facility] Imm Gran Pct Auto 0.4 0.0 - 0.4 % [facility] Lymphocytes Percent Auto 26.3 20 - 40 % [facility] Monocytes Percent Auto 9.0 2 - 11 % [facility] Eosinophils Percent Auto 4.3(H) 0 - 4 % [facility] Basophils Percent Auto 1.0 0 - 2 % [facility] NRBC Pct Auto 0.0 0.0 - 0.2 /100WBC [facility] Neutrophils Absolute Auto 2.9 2.0 - 8.3 x10*3/uL [facility] Imm Gran Abs Auto 0.02 0.00 - 0.03 X10*3/uL [facility] Lymphocytes Absolute Auto 1.3 1.2 - 4.9 X10*3/uL [facility] Monocytes Absolute Auto 0.4 0.1 - 1.2 X10*3/uL [facility] Eosinophils Absolute Auto 0.2 0.0 - 0.4 X10*3/uL [facility] Basophils Absolute Auto 0.1 0.0 - 0.2 X10*3/uL [facility] NRBC Abs Auto 0.000 0.0 - 0.012 X10*3/uL [facility] 06/12/2025 3:35 PM EST 06/12/2025 3:39 PM EST Generic External Data Provider LAB BLOOD ORDERAB LES Final Result Performing Organization Address [facility]/ZIP Co de Phone Number [facility] [address] [place] [phone] * Ammonia, Plasma (06/12/2025 3:35 PM EST) Pathologist [facility] Ammonia (P) 21 13 - 55 umol/L [facility] 06/12/2025 3:35 PM EST 06/12/2025 3:39 PM EST Generic External Data Provider LAB BLOOD ORDERAB LES Final Result Performing Organization Address [facility] de Phone Number [facility] [address] [place] [phone] * (ABNORMAL) Comprehensive Metabolic Panel (06/12/2025 3:35 PM EST) Only the most recent of2 resultswithin the time period is included. Sodium 134(L) 135 - 145 mmol/L [facility] Potassium 4.9 3.3 - 5.1 mmol/L [facility] Chloride 95(L) 96 - 108 mmol/L [facility] Carbon Dioxide 33(H) 22 - 29 mmol/L [facility] Anion Gap 11(L) 12 - 20 [facility] Urea Nitrogen (BUN) 24(H) 9 - 16 mg/dL [facility] Creatinine, Serum 1.34 0.5 - 1.4 mg/dL [facility] Creatinine Clr Calc Pharmacy 41.2 [facility] Comment:Provided height and weight: 154.94 cm,108.6 kg.eGFR (calculated from the MDRD study equation) and eCrCl(calculated from the Cockcroft-Gault equation) are based ondifferent parameters and may not yield comparable results.If eCrCl result is absurd, please check patient'sheight/weight. Estimated Glomerular Filt Rate 39 [facility] Comment:Chronic Kidney Disea se: Estimated GFR < 60 mL/min/1.30q9Amuzko Kidney Disease: Estimated GFR < 15 mL/min/1.73m2 Glucose 545(HH) 60 - 115 mg/dL [facility] Comment:Critical value for t est(s): GLUR Results called to and readback by: KEISHA Person calling:ALKASAB Date:06/12/25Time:16:02 Calcium 9.1 8.4 - 10.2 mg/dL [facility] Bilirubin, Total 0.3 0.0 - 1.0 mg/dL [facility] Aspartate Amino Transferase 16 5 - 31 U/L [facility] Alanine Aminotransferase 7 0 - 31 U/L [facility] Total Protein 6.8 6.5 - 8.0 g/dL [facility] Albumin Level 3.5 3.5 - 5.0 g/dL [facility] Alkaline Phosphatase 88 39 - 117 U/L [facility] 06/12/2025 3:35 PM EST 06/12/2025 3:39 PM EST us Generic External Data Provider LAB BLOOD ORDERAB LES Final Result [facility] [address] [place] [address] [phone] * CT Cervical Spine w/o Contrast (06/12/2025 3:13 PM EST) Only the most recent of2 resultswithin the time period is included. Anatomical Region Laterality Modality Spine, C-spine Computed Tomogra phy 06/12/2025 3:13 PM EST Narrative 06/12/2025 3:42 PM EST [address] [address] [address] Scan Report Signed Patient: Mary Lou Godwin MR#: M [id number] : 1950 Acct:[id number] Age/Sex: 74 / F ADM Date: 06/12/25 Loc: HO.ED Attending Dr: Ordering Physician: Kristi Delvalle Date of Service: 06/12/25 Procedure(s): CT cervical spine wo IV con Accession Number(s): [id number] cc: Amanda Watkins MD; Kristi Delvalle Report Number: [id number]: Total DLP = 1657.07 mGy-cm Reason for [...] 06/12/25 1539 DD/ 1513 TD/TT: 06/12/25 1530 Manager Registration: Procedure Note Donotuseinterpreter, Image - 06/12/[address] [place] [address] [address] Scan Report Signed Patient: Mary Lou Godwin ZMR#: M [id number] : 1950cct:[id number] Age/Sex: 74 / FADM Date: 06/12/25 Loc: HO.ED Attending Dr: Ordering Physician: Kristi Delvalle Date of Service: 06/12/25 Procedure(s): CT cervical spine wo IV con Accession Number(s): [id number] cc: Amanda Watkins MD; Kristi Delvalle Report Number: [id number]: Total DLP = 1657.07 mGy-cm Reason for [...] 06/12/25 1539 DD/ 1513 TD/TT: 06/12/25 1530 Manager Registration: [facility] External Provider IMG CT PROCEDURES Final Result * CT Head w/o Contrast (06/12/2025 3:13 PM EST) Only the most recent of2 resultswithin the time period is included. Anatomical Region Laterality Modality Head, Neck Computed Tomogra phy 06/12/2025 3:13 PM EST Narrative 06/12/2025 3:56 PM EST [address] [address] [address] Scan Report Signed Patient: Mary Lou Godwin MR#: M [id number] : 1950 Acct:[id number] Age/Sex: 74 / F ADM Date: 06/12/25 Loc: HO.ED Attending Dr: Ordering Physician: Kristi Delvalle Date of Service: 06/12/25 Procedure(s): CT head/brain wo IV con Accession Number(s): [id number] cc: Amanda Watkins MD; Kristi Delvalle Report Number: [id number]: Total DLP = 0.00 mGy-cm Reason for [...] Trina Cyr MD 06/12/2025 03:52 PM [facility] Dictated By: Trina Cyr MD Signed By: <Electronically signed by Trina Cyr MD in OV> 06/12/25 1552 DD/ 1513 TD/TT: 06/12/25 1530 Manager Registration: JAMAAL Procedure Note Donotuseinterpreter, Image - 06/12/[address] [address] [address] Scan Report Signed Patient: Mary Lou Godwin ZMR#: M [id number] : [birth year]Acct:[id number] Age/Sex: 74 / FADM Date: 06/12/25 Loc: HO.ED Attending Dr: Ordering Physician: Kristi Delvalle Date of Service: 06/12/25 Procedure(s): CT head/brain wo IV con Accession Number(s): [id number] cc: Amanda Watkins MD; Kristi Delvalle Report Number: [id number]: Total DLP = 0.00 mGy-cm Reason for [...] Trina Cyr MD 06/12/2025 03:52 PM EST RP Dictated By: Trina Cry MD Signed By: <Electronically signed by Trina Cyr MD in OV> 06/12/25 1552 DD/ 1513 TD/TT: 06/12/25 1530 Manager Registration: JAMAAL [facility] External Provider IMG CT PROCEDURES Final Result * (ABNORMAL) Complete Blood Count Manual Diff (06/11/2025 1:41 AM EST) White Blood Count 5.6 4.8 - 10.8 X10*3/uL [facility] Red Blood Count 4.38 4.20 - 5.50 X10*6/uL [facility] Hemoglobin 11.7(L) 12.0 - 16.0 g/dl [facility] Hematocrit 36.2(L) 37.0 - 47.0 % [facility] Mean Corpuscular Volume 82.6 80.0 - 98.0 fL [facility] Mean Corpuscular Hemoglobin 26.7(L) 27.0 - 33.0 pg [facility] Mean Corpuscular HGB Conc 32.3 31.0 - 35.0 g/dl [facility] Red Cell Distribution Width 15.1 11.0 - 16.0 % [facility] Platelet Count 242 160 - 400 X10*3/uL [facility] Mean Platelet Volume 10.4 9.4 - 12.3 fL [facility] NRBC Pct Auto 0.0 0.0 - 0.2 /100WBC [facility] NRBC Abs Auto 0.000 0.0 - 0.012 X10*3/uL [facility] Neutrophils % Manual 71 45 - 73 % [facility] Band Neutrophils Percent 1(L) 3 - 5 % [facility] Lymphocytes Percent Manual 16(L) 20 - 40 % [facility] Atypical Lymphs Percent Manual 1 0 - 6 % [facility] Monocytes Percent Manual 8 2 - 11 % [facility] EOSINOPHILS % MANUAL 3 0 - 4 % [facility] NEUTROPHILS ABSOLUTE MANUAL 4.0 2.0 - 8.3 X10*3/uL [facility] LYMPHOCYTES ABSOLUTE MANUAL 0.9(L) 1.2 - 4.9 X10*3/uL [facility] Atypical Lymph Absolute Manual 0.1 x10*3/uL [facility] MONOCYTES ABSOLUTE MANUAL 0.4 0.1 - 1.2 X10*3/uL [facility] EOSINOPHILS ABSOLUTE MANUAL 0.2 0.0 - 0.4 X10*3/uL [facility] Platelet Estimate NORMAL NORMAL [facility] Platelet Morphology Comment NORMAL [facility] RBC Morphology NOTED [facility] Hypochromasia 1+ (5-14) /OIF [facility] Microcytosis 1+ (5-14) /F [facility] 06/11/2025 1:41 AM EST 06/11/2025 1:44 AM EST us Generic External Data Provider LAB BLOOD ORDERAB LES Final Result Performing Organization Address [facility] Co de Phone Number [facility] [address] [place] [phone] * Magnesium (06/11/2025 1:41 AM EST) Magnesium 2.4 1.6 - 2.6 mg/dL [facility] 06/11/2025 1:41 AM EST 06/11/2025 1:44 AM EST us Generic External Data Provider LAB BLOOD ORDERAB LES Final Result Performing Organization Address [facility] Co de Phone Number [facility] [address] [place] [address] [phone] * XR Shoulder 2+ Views Left (06/03/2025 11:39 AM EDT) Anatomical Region Laterality Modality Upper Extremities, Shoulder Left Radi ographic Imaging 06/03/2025 11:3 9 AM EDT Narrative 06/03/2025 11:41 AM EDT [address] [address] XRay Report Signed Patient: Mary Lou Godwin Z MR#: M [id number] : 1950 Acct:[id number] Age/Sex: 74 / F ADM Date: 06/03/25 Loc: HO.ED Attending Dr: Ordering Physician: Kristi Delvalle Date of Service: 06/03/25 Procedure(s): XR shoulder LT min 2V Accession Number(s): [id number] cc: Amanda Watkins MD; Kristi Delvalle Reason [...] 06/03/25 1140 DD/ 1139 TD/TT: 06/03/25 1139 Manager Registration: Procedure Note Donotuseinterpreter, Image - 06/03/[address] [address] XRay Report Signed Patient: Mary Lou Godwin ZMR#: M [id number] : 1950cct:[id number] Age/Sex: 74 / FADM Date: 06/03/25 Loc: HO.ED Attending Dr: Ordering Physician: Kristi eDlvalle Date of Service: 06/03/25 Procedure(s): XR shoulder LT min 2V Accession Number(s): [id number] cc: Amanda Watkins MD; Kristi Delvalle Reason [...] 06/03/25 1140 DD/ 1139 TD/TT: 06/03/25 1139 Manager Registration: [facility] External Provider IMG XR PROCEDURES Final Result * XR Wrist 3+ Views Left (06/03/2025 11:35 AM EDT) Anatomical Region Laterality Modality Upper Extremities, Wrist Left Radiogr aphic Imaging 06/03/2025 11:3 5 AM EDT Narrative 06/03/2025 11:37 AM EDT [place] [address] XRay Report Signed Patient: Mary Lou Godwin MR#: M [id number] : 1950 Acct:[id number] Age/Sex: 74 / F ADM Date: 06/03/25 Loc: HO.ED Attending Dr: Ordering Physician: Kristi Delvalle Date of Service: 06/03/25 Procedure(s): XR wrist LT min 3V Accession Number(s): [id number] cc: Amanda Watkins MD; Kristi Delvalle Reason [...] OV> 06/03/25 1136 DD/ 34 TD/TT: 06/03/251134 Manager Registration: Procedure Note Donotuseinterpreter, Image - 06/03/[address] [address] XRay Report Signed Patient: Mary Lou Godwin ZMR#: M [id number] : 1950cct:[id number] Age/Sex: 74 / FADM Date: 06/03/25 Loc: .ED Attending Dr: Ordering Physician: Kristi Delvalle Date of Service: 06/03/25 Procedure(s): XR wrist LT min 3V Accession Number(s): [id number] cc: Amanda Watkins MD; Kristi Delvalle Reason [...] OV> 06/03/25 1136 DD/ 34 TD/TT: 06/03/251134 Manager Registration: [facility] External Provider IMG XR PROCEDURES Final Result * (ABNORMAL) Hepatic Function Panel (06/03/2025 10:06 AM EDT) Bilirubin, Total 0.2 0.0 - 1.0 mg/dL [facility] Bilirubin, Direct <0.2 0.0 - 0.5 mg/dL [facility] Aspartate Amino Transferase 20 5 - 31 U/L [facility] Alanine Aminotransferase 18 0 - 31 U/L [facility] Total Protein 6.1(L) 6.5 - 8.0 g/dL [facility] Albumin Level 3.0(L) 3.5 - 5.0 g/dL [facility] Alkaline Phosphatase 70 39 - 117 U/L [facility] 06/03/2025 10:0 6 AM EDT 06/03/2025 10:10 AM EDT us Generic External Data Provider LAB BLOOD ORDERAB LES Final Result [facility] [address] [place] [phone] * (ABNORMAL) Basic Metabolic Panel (06/03/2025 10:06 AM EDT) Sodium 140 135 - 145 mmol/L [facility] Potassium 4.4 3.3 - 5.1 mmol/L [facility] Chloride 101 96 - 108 mmol/L [facility] Carbon Dioxide 33(H) 22 - 29 mmol/L [facility] Anion Gap 10(L) 12 - 20 [facility] Urea Nitrogen (BUN) 33(H) 9 - 16 mg/dL [facility] Creatinine, Serum 1.44(H) 0.5 - 1.4 mg/dL [facility] Creatinine Clr Calc Pharmacy 40.1 [facility] Comment:Provided height and weight: 160.02 cm,109.7 kg.eGFR (calculated from the MDRD study equation) and eCrCl(calculated from the Cockcroft-Gault equation) are based ondifferent parameters and may not yield comparable results.If eCrCl result is absurd, please check patient'sheight/weight. Estimated Glomerular Filt Rate 35 [facility] Comment:Chronic Kidney Disea se: Estimated GFR < 60 mL/min/1.73h0Pnhmqv Kidney Disease: Estimated GFR < 15 mL/min/1.73m2 Glucose 342(H) 60 - 115 mg/dL [facility] Calcium 8.1(L) 8.4 - 10.2 mg/dL [facility] 06/03/2025 10:0 6 AM EDT 06/03/2025 10:10 AM EDT us Generic External Data Provider LAB BLOOD ORDERAB LES Final Result [facility] [address] [place] [phone] * (ABNORMAL) Drug Monitoring, Panel 1, Screen, Urine (05/30/2025 5:56 AM EDT) Opiate Screen Urine Not Detected Not Detect [facility] Comment:Opiate cut-off is 30 0 ng/mL.Positive results are unconfirmed and should not be used fornon-medical purposes. Barbiturates, Urine Not Detected Not Detect [facility] Comment:Barbiturate cut-off is 200 ng/mL.Positive results are unconfirmed and should not be used fornon-medical purposes. Phencyclidine Screen Urine Not Detected Not Detect [facility] Comment:Phencyclidine cut-of f is 25 ng/mL.Positive results are unconfirmed and should not be used fornon-medical purposes. Amphetamine Screen Urine Not Detected Not Detect [facility] Comment:Amphetamine cut-off is 1000 ng/mL.Positive results are unconfirmed and should not be used fornon-medical purposes. Benzodiazepines Screen Urine Not Detected Not Detect [facility] Comment:Benzodiazepine cut-o ff is 200 ng/mL.Positive results are unconfirmed and should not be used fornon-medical purposes. Cocaine Screen Urine Not Detected Not Detect [facility] Comment:Cocaine cut-off is 3 00 ng/mL.Positive results are unconfirmed and should not be used fornon-medical purposes. Cannabinoid Screen Urine Not Detected Not Detect [facility] Comment:Cannabinoid cut-off is 50 ng/mL.Positive results are unconfirmed and should not be used fornon-medical purposes. Methadone Screen, Urine Not Detected Not Detect ng/mL [facility] Comment:Methadone cut-off is 300 ng/mL.Positive results are unconfirmed and should not be used fornon-medical purposes. FENTANYL URINE Not Detected Not Detect [facility] Comment:Fentanyl cut-off is 1 ng/mL.Positive results are unconfirmed and should not be used fornon-medical purposes. Oxycodone Urine Screen Positive(A) Not Detect ng/mL [facility] Comment:Oxycodone cut-off is 100 ng/mL.Positive results are unconfirmed and should not be used fornon-medical purposes. Buprenorphine Screen Not Detected Not Detect ng/mL [facility] Comment:Buprenorphine cut-of f is 5 ng/mL.Positive results are unconfirmed and should not be used fornon-medical purposes. 05/30/2025 5:56 AM EDT 05/30/2025 6:04 AM EDT Generic External Data Provider LAB URINE ORDERAB LES Final Result Performing Organization Address City/[facility]/ZIP Co de Phone Number [facility] [address] [place] [phone] * Acetaminophen level (05/30/2025 12:14 AM EDT) Acetaminophen LAB <3 <30 mcg/mL [facility] 05/30/2025 12:1 4 AM EDT 05/30/2025 12:18 AM EDT Generic External Data Provider LAB BLOOD ORDERAB LES Final Result Performing Organization Address [facility] Co de Phone Number [facility] [address] [place] [address] [phone] * (ABNORMAL) Salicylate (05/30/2025 12:14 AM EDT) Salicylate <5.0(L) 15 - 30 mg/dL [facility] 05/30/2025 12:1 4 AM EDT 05/30/2025 12:18 AM EDT us Generic External Data Provider LAB BLOOD ORDERAB LES Final Result [facility] [address] [place] [phone] * (ABNORMAL) POCT Hgb A1c (05/08/2025 10:52 AM EDT) Hemoglobin A1C 9.8(A) 4.0 - 5.7 % QC Media Lot # [id number] Lot# Expiration Date [id number] Blood 05/08/2025 10:5 2 AM EDT Amanda Myers MD POINT OF CARE TEST EN TER/EDIT ORDERABLES Final Result * (ABNORMAL) POCT Glucose (05/08/2025 10:52 AM EDT) Glucose Blood, POC 407(A) 60 - 200 [...] PM EDT Narrative 04/17/2025 9:25 PM EDT [address] [address] [address] Scan Report Signed with Tosin Patient: Mary Lou Godwin MR#: M [id number] : 1950 Acct:[id number] Age/Sex: 74 / F ADM Date: 04/17/25 Loc: HO.ED Attending Dr: Ordering Physician: Kassy Barnard DO Date of Service: 04/17/25 Procedure(s): CT shoulder RT wo IV con Accession Number(s): [id number] cc: Amanda Watkins MD; Kassy Barnard DO Report Number: [id number]: Total DLP = 476.00 mGy-cm Reason for [...] RT MIN 2V - 03/11/25 08:[address]/NC/SR - CT SHOULDER RT WO IV CON [...] in OV> 04/17/252124 DD/ 22 TD/TT: 04/17/252122 Manager Registration: Procedure Note Donotuseinterpreter, Image - 04/17/[address] [place] [address] [address] Scan Report Signed with Tosin Patient: Mary Lou Godwin ZMR#: M [id number] : 1950cct:[id number] Age/Sex: 74 / FADM Date: 04/17/25 Loc: .ED Attending Dr: Ordering Physician: Kassy Barnard DO Date of Service: 04/17/25 Procedure(s): CT shoulder RT wo IV con Accession Number(s): [id number] cc: Amanda Watkins MD; Kassy Barnard DO Report Number: [id number]: Total DLP = 476.00 mGy-cm Reason for [...] RT MIN 2V - 03/11/25 08:[address]/NC/SR - CT SHOULDER RT WO IV CON [...] in OV> 04/17/252124 DD/ 22 TD/TT: 04/17/252122 Manager Registration: [facility] External Provider IMG CT PROCEDURES Edited Result - Final * Lactic Acid (04/17/2025 10:07 AM EDT) Lactic Acid 1.0 0.5 - 2.0 mmol/L [facility] 04/17/2025 10:0 7 AM EDT 04/17/2025 10:12 PM EDT Generic External Data Provider LAB BLOOD ORDERAB LES Final Result [facility] [address] [place] [phone] * (ABNORMAL) Lipid Panel, Standard (09/01/2024 2:09 PM EST) Triglycerides 241(H) <150 mg/dL [facility] Comment:Desirable Triglyceri de: less than 150 mg/dLBorderline High Triglyceride 150-199 mg/dLHigh Triglyceride: 200-499 mg/dLVery High Triglyceride: greater than or equal to 5OO mg/dL Cholesterol 107 <200 mg/dL [facility] Comment:Desirable Cholestero l: less than 200 mg/dLBorderline High Cholesterol: 200-239 mg/dLHigh Cholesterol: greater than 239 mg/dL LDL Cholesterol Calculated 34 <100 mg/dL [facility] Comment:Desirable LDL: less than 100 [...] BLOOD ORDERABLES Final Result Performing Organization Address City/[facility]/ZIP Co de Phone Number [facility] [address] [place] [address] [phone] * (ABNORMAL) ALBUMIN, RANDOM URINE W/CREATININE [...] ORDERABLES Final R esult Performing Organization Address City/[facility] Co de Phone Number [facility] [address] from Last 3 Months or Most Recently Relevant to Health Maintenance Additional Health Concerns Active Problems Noted Date Diagnosed Date Help patients manage their type 2 diabetes 06/21 Weekly blood pressure task 06/21/2025 Help patients manage their type 2 diabetes 06/21 Patient has chronic kidney disease 06/21/2025 Weekly blood pressure task 06/21/2025 Patient has chronic kidney disease 06/21/2025 Weekly blood pressure task 06/21/2025 Weekly blood pressure task 06/21/2025 Patient has chronic kidney disease 06/21/2025 Patient has chronic kidney disease 06/21/2025 Weekly blood pressure task 06/26/2025 Weekly blood pressure task 06/26/2025 Patient has chronic kidney disease 06/26/2025 Patient has chronic kidney disease 06/26/2025 Weekly blood pressure task 06/26/2025 Weekly blood pressure task 06/26/2025 Patient has chronic kidney disease 06/26/2025 Patient has chronic kidney disease 06/26/2025 Weekly blood pressure task 06/29/2025 Weekly blood pressure task 06/29/2025 Patient has chronic kidney disease 06/29/2025 Patient has chronic kidney disease 06/29/2025 Weekly blood pressure task 07/02/2025 Weekly blood pressure task 07/02/2025 Patient has chronic kidney disease 07/02/2025 Patient has chronic kidney disease 07/02/2025 Weekly blood pressure task 07/03/2025 Weekly blood pressure task 07/03/2025 Patient has chronic kidney disease 07/03/2025 Patient has chronic kidney disease 07/03/[address] [place] [phone] [facility] [employer] (O D-SNP) [facility] [address] [place] [phone] Care Teams Hand Paint Mixer Relationship Specialty Start Date End Date Amanda Watkins MD [address] [place] [phone] PCP - General Family Medicine 04/07/19 Hiro Ram FNP [address] [place] [phone] Nurse Practitioner Family Medicine 07/06/23 Raad Arias, TheaD [address] [place] [phone] Pharmacist Internal Medicine 10/19/24 [employer] [facility] 03/08/25
--- OUTSIDE RECORDS SUMMARY | 2025-07-08 11:08 | XMS_ITS | Encounter Summary ---
Author Organization [employer] Address 75 [facility] 7t [place] [address] Care Team Providers Care Volunteer Services Supervisor Name Role Phone Amanda Watkins MD Primary Care Provide r Hiro Rma WHARF OPERATOR Unavailable Unavailable Raad Arias PharmD Unavailable Reason for Visit * Reason Comments Med Refill Encounter Details Date Type Department Care Team (Late st Contact Info) Description 02/11/2024 Refill [facility] MEDICINE [address] [place] [address] Amanda Watkins MD [address] [place], [place] [phone] Type 2 diabetes mellitus with other specified complication, unspecified whether exterminator helper insulin use ([facility]) Social History Tobacco Use Types Packs/Day [...] Description 07/09/2025 3:30 PM EST Office Visit [address] [address] Amanda Watkins MD [address] [place] [address] 09/21/2025 10:00 AM EST Telemedicine [address] [address] Kayley Alanis RN documented as of this encounter Visit Diagnoses Diagnosis Type 2 diabetes mellitus with other specified complication, unspecified whether exterminator helper insulin use (HCC) documented in this encounter Additional Health Concerns Assessment Noted Time PHQ-9 Depression Total Score: 10 024 3:23 PM EDT documented as of this encounter Care Teams Volunteer Services Supervisor Relationship Specialty Start Date End Date Amanda Watkins MD [address] [place] [address] PCP - General Family Medicine 04/07/19 Hiro Ram FNP [address] [place] [address] Nurse Practitioner Family Medicine 07/06/23 Raad Arias, PharmD [address] [place] [address] CORINNE Peres [address] Pharmacist Internal Medicine 10/19/24 [facility] 07/03/22 08/16/24 [facility] 08/10/24 03/12/25 [facility] 03/08/25 documented as of this encounter
--- OUTSIDE RECORDS SUMMARY | 2025-07-08 11:08 | XMS_ITS | Encounter Summary ---
Author Organization [employer] Address 75 [facility] 7t [place] [address] Care Team Providers Care Medical Affairs Specialist Name Role Phone Amanda Watkins MD Primary Care Provide r Hiro Ram ARBOR END MAINSPRING FORMER Unavailable Unavailable Raad Arias PharmD Unavailable [phone] Reason for Visit * Reason Onset Date Comments Durable Medical Equipment 06/21/2025 DME: p remium external urinary catheter Encounter Details Date Type Department Care Team (Late st Contact Info) Description 06/21/2025 Telephone [facility] MEDICINE [address] [place] [address] Amanda Watkins MD [address] [place] [address] Durable Medical Equipment (DME: premium external urinary catheter) Social History Tobacco Use Types Packs/Day Years [...] * Telephone Encounter - Margie Sánchez - 06/22/2025 11:22 AM EST Dme order was generated for premium external urinary catheter [facility] * Telephone Encounter - Jeff Stanford - 06/21/2025 3:18 PM EST Tc from pt son requesting a premium external urinary catheter from [facility] due to pt falling at night to use the bathroom. To be sent to [facility]. Fax number is [phone] documented in this encounter Plan of Treatment Upcoming Encounters Date Type Department Care Team (Late st Contact Info) Description 07/09/2025 3:30 PM EST Office Visit [facility] MEDICINE [address] [place] [phone] Amanda Watkins MD [address] [place] [address] 09/21/2025 10:00 AM EST Telemedicine [facility] MEDICINE [address] [place] [address] Kayley Alanis RN documented as of this encounter Goals Goal Patient Goal Type Associated Problems Recent Progress Patient-Stated? Author Help patients manage their type 2 diabetes Care Plan Help patients manage their type 2 diabetes No Ann Farley PharmD Weekly blood pressure task Care Plan Weekly blood pressure task No Ann Farley PharmD Help patients manage their type 2 diabetes Care Plan Help patients manage their type 2 diabetes No Ann Farley, PharmD Patient has chronic kidney disease Care Plan Patient has chronic kidney disease No Ann Farley PharmD Weekly blood pressure task Care Plan Weekly blood pressure task No Ann Farley, PharmD Patient has chronic kidney disease Care Plan Patient has chronic kidney disease No Ann Farley PharmD Weekly blood pressure task Care Plan Weekly blood pressure task No Stanford Jeff Weekly blood pressure task Care Plan Weekly blood pressure task No Stanford Jeff Patient has chronic kidney disease Care Plan Patient has chronic kidney disease No Abdoulaye, Jeff Patient has chronic kidney disease Care Plan Patient has chronic kidney disease No Jeff Stanford documented as of this encounter Visit Diagnoses Not on filedocumented in this encounter Additional Health Concerns Active Problems Noted Date [...] 06/21/2025 Patient has chronic kidney disease 06/21/2025 Assessment Noted Time PHQ-9 Depression Total Score: 14 025 2:41 PM EDT documented as of this encounter Care Teams Medical Affairs Specialist Relationship Specialty Start Date End Date Amanda Watkins MD [address] [place] [address] PCP - General Family Medicine 04/07/19 Hiro Ram FNP [address] [place] [address] Nurse Practitioner Family Medicine 07/06/23 Raad Arias, PharmD [address] [place] [address] Pharmacist Internal Medicine 10/19/24 [facility] 03/08/25 documented as of this encounter
--- OUTSIDE RECORDS SUMMARY | 2025-07-08 11:09 | XMS_ITS | Encounter Summary ---
Author Organization [employer] Address 75 [facility] 7t [place] [address] Care Team Providers Care Medical Case Manager Name Role Phone Amanda Watkins MD Primary Care Provide r Hiro Ram TRAVELING ELECTRICIAN Unavailable Unavailable Raad Arias PharmD Unavailable [phone] Reason for Visit * Reason Onset Date Comments Med Refill 01/16/2025 Encounter Details Date Type Department Care Team ([facility] st Contact Info) Description 01/16/2025 Telephone [facility] MEDICINE [address] [place] [address] Amanda Watkins MD [address] [place] [address] Med Refill Social History Tobacco Use Types [...] 10:59 AM EDT Medication was sent to [facility] on 12/28/24 #30 with 2 refills. * Telephone Encounter - Radha Stevenson - 01/16/2025 10:54 AM EDT TC from pt requesting medication refill. Medications needing refill : levothyroxine (Synthroid, Levoxyl) 75 MCG tablet To be sent to: [facility] pharmacy documented in this encounter Plan of Treatment Upcoming Encounters Date Type Department Care Team (Late st Contact Info) Description 07/09/2025 3:30 PM EST Office Visit [facility] MEDICINE [address] [place] [address] Amanda Watkins MD [address] [place] [address] 09/21/2025 10:00 AM EST Telemedicine [facility] MEDICINE [address] [place] [address] Kayley Alanis, PHILLIP documented as of this encounter Visit Diagnoses Not on filedocumented in this encounter Additional Health Concerns Assessment Noted Time PHQ-9 Depression Total Score: 0 09/01/19 1:18 PM EST documented as of this encounter Care Teams Medical Case Manager Relationship Specialty Start Date End Date Amanda Watkins MD [address] [place] [address] PCP - General Family Medicine 04/07/19 Hiro Ram FNP [address] [place] [address] Nurse Practitioner Family Medicine 07/06/23 Raad Arias, TheaD [address] [place] [address] Pharmacist Internal Medicine 10/19/24 Ja [facility] 08/10/24 03/12/25 [facility] 03/08/25 documented as of this encounter
--- OUTSIDE RECORDS SUMMARY | 2025-07-08 11:09 | XMS_ITS | Encounter Summary ---
Author Organization [employer] Address 75 [facility] 7t [place] [address] Care Team Providers Care Theatrical Agent Name Role Phone Amanda Watkins MD Primary Care Provide r Hiro Ram CORK SLABS SAWYER Unavailable Unavailable Raad Arias PharmD Unavailable [phone] Reason for Visit * Reason Onset Date Comments letter of medical necessity 06/29/2025 Encounter Details Date Type Department Care Team ([facility] st Contact Info) Description 06/29/2025 Telephone [facility] MEDICINE 230 [place] [address] Amanda Watkins MD [address] [place] [address] letter of medical necessity Social History Tobacco Use Types Packs/Day Years [...] encounter Miscellaneous Notes * Telephone Encounter - Ronan Louis - 06/29/2025 1:51 PM EST TC from [place] with [facility] reports receiving a request for [employer] and is requesting a letter of medical necessity in order to continue to process the request documented in this encounter Plan of Treatment Upcoming Encounters Date Type Department Care Team (Late st Contact Info) Description 07/09/2025 3:30 PM EST Office Visit [facility] MEDICINE [address] [place] [address] Amanda Watkins MD [address] [place] [address] 09/21/2025 10:00 AM EST Telemedicine [address] [address] Kayley Alanis RN documented as of this encounter Goals Goal Patient Goal Type Associated Problems Recent Progress Patient-Stated? Author Help patients manage their type 2 diabetes Care Plan Help patients manage their type 2 diabetes No Ann Farley, Carlos Weekly blood pressure task Care Plan Weekly blood pressure task No Ann Farley PharmD Help patients manage their type 2 diabetes Care Plan Help patients manage their type 2 diabetes No Ann Farley, PharmEmily Patient has chronic kidney disease Care Plan Patient has chronic kidney disease No Ann Farley PharmD Weekly blood pressure task Care Plan Weekly blood pressure task No Ann Farley, PharmEmily Patient has chronic kidney disease Care Plan Patient has chronic kidney disease No Ann Farley, PharmD Weekly blood pressure task Care Plan Weekly blood pressure task No StanfordJeff allen Weekly blood pressure task Care Plan Weekly blood pressure task No Stanford Jeff Patient has chronic kidney disease Care Plan Patient has chronic kidney disease No Stanford Jeff Patient has chronic kidney [...] has chronic kidney disease No Margie Sánchez Weekly blood pressure task Care Plan Weekly blood pressure task No Ronan Louis Weekly blood pressure task Care Plan Weekly blood pressure task No Ronan Louis Patient has chronic kidney disease Care Plan Patient has chronic kidney disease No Ronan Louis Patient has chronic kidney disease Care Plan Patient has chronic kidney disease No Ronan Louis documented as of this encounter Visit Diagnoses [...] 06/29/2025 Patient has chronic kidney disease 06/29/2025 Assessment Noted Time PHQ-9 Depression Total Score: 14 025 2:41 PM EDT documented as of this encounter Care Teams Theatrical Agent Relationship Specialty Start Date End Date Amanda Watkins MD [address] [place] [address] PCP - General Family Medicine 04/07/19 Hiro Ram FNP [address] [place] [address] Nurse Practitioner Family Medicine 07/06/23 Raad Arias, TheaD [address] [place] [address] Pharmacist Internal Medicine 10/19/24 [facility] 03/08/25 documented as of this encounter
--- OUTSIDE RECORDS SUMMARY | 2025-07-08 11:09 | XMS_ITS | Encounter Summary ---
Author Organization [employer] Address [address] [facility] 7t [place] [address] Care Team Providers Care Ophthalmology Technician Name Role Phone Amanda Watkins MD Primary Care Provide r Hiro Ram BUSINESS COMPUTERS TEACHER Unavailable Unavailable Raad Arias PharmD Unavailable [phone] Reason for Visit * Reason Onset Date Comments Hospital Follow-up 04/04/2024 Encounter Details Date Type Department Care Team (Late st Contact Info) Description 04/04/2024 Telephone [facility] MEDICINE 230 [place] [address] Amanda Watkins MD 230 [place], [place] [phone] Hospital Follow-up Social History Tobacco Use Types [...] from pt requesting a HDF appt. Hospital: [facility] Date of admission: 03/18 Discharge date: 03/21 Diagnosed: Cellulitis documented in this encounter Plan of Treatment Upcoming Encounters Date Type Department Care Team (Late st Contact Info) Description 07/09/2025 3:30 PM EST Office Visit [address] [address] Amanda Watkins MD [address] [place] [address] 09/21/2025 10:00 AM EST Telemedicine [facility] MEDICINE [address] [place] [address] Kayley Alanis RN documented as of this encounter Visit Diagnoses Not on filedocumented in this encounter Additional Health Concerns Assessment Noted Time PHQ-9 Depression Total Score: 10 024 3:23 PM EDT documented as of this encounter Care Teams Ophthalmology Technician Relationship Specialty Start Date End Date Amanda Watkins MD [address] [place] [address] PCP - General Family Medicine 04/07/19 Hiro Ram FNP [address] [place] [address] Nurse Practitioner Family Medicine 07/06/23 Raad Arias, TheaD [address] [place] [address] Pharmacist Internal Medicine 10/19/24 [facility] 07/03/22 08/16/24 [facility] 08/10/24 03/12/25 [facility] 03/08/25 documented as of this encounter
--- OUTSIDE RECORDS SUMMARY | 2025-07-08 11:09 | XMS_ITS | Encounter Summary ---
Author Organization [employer] Address 75 [facility] 7t [place] [address] Care Team Providers Care Shell Shop Supervisor Name Role Phone Amanda Watkins MD Primary Care Provide r Hiro Ram TIRE REBUILDER Unavailable Unavailable Raad Arias PharmD Unavailable [phone] Reason for Visit * Reason Onset Date Comments Durable Medical Equipment 07/26/2024 Encounter Details Date Type Department Care Team (Late st Contact Info) Description 07/26/2024 Telephone [facility] MEDICINE [address] [place] [address] Amanda Watkins MD [address] [place] [address] Durable Medical Equipment Social History Tobacco Use [...] Description 07/09/2025 3:30 PM EST Office Visit [facility] MEDICINE [address] [place] [address] Amanda Watkins MD [address] [place] [address] 09/21/2025 10:00 AM EST Telemedicine [facility] MEDICINE [address] [place] [phone] Kayley Alanis RN documented as of this encounter Visit Diagnoses Not on filedocumented in this encounter Additional Health Concerns Assessment Noted Time PHQ-9 Depression Total Score: 10 024 3:23 PM EDT documented as of this encounter Care Teams Shell Shop Supervisor Relationship Specialty Start Date End Date Amanda Watkins MD [address] [place] [address] PCP - General Family Medicine 04/07/19 Hiro Ram FNP [address] [place] [address] Nurse Practitioner Family Medicine 07/06/23 Raad Arias, TheaD [address] [place] [address] Pharmacist Internal Medicine 10/19/24 [facility] 07/03/22 08/16/24 Ja [facility] 08/10/24 03/12/25 [facility] 03/08/25 documented as of this encounter
--- OUTSIDE RECORDS SUMMARY | 2025-07-08 11:09 | XMS_ITS | Encounter Summary ---
Author Organization [employer] Address 75 [facility] 7t [place] [address] Care Team Providers Care Agency Appointments Supervisor Name Role Phone Amanda Watkins MD Primary Care Provide r Hiro Ram SALES PROFESSIONAL Unavailable Unavailable Raad Arias PharmD Unavailable [phone] Reason for Visit * Reason Comments Med Refill Encounter Details Date Type Department Care Team (Late st Contact Info) Description 07/05/2024 Refill [facility] MEDICINE [address] [place] [address] Amanda Watkins MD [address] [place], [place] [phone] Social History Tobacco Use Types Packs/Day Years [...] Description 07/09/2025 3:30 PM EST Office Visit [address] [address] Amanda Watkins MD [address] [place] [address] 09/21/2025 10:00 AM EST Telemedicine [address] [address] Kayley Alanis RN documented as of this encounter Visit Diagnoses Not on filedocumented in this encounter Additional Health Concerns Assessment Noted Time PHQ-9 Depression Total Score: 10 024 3:23 PM EDT documented as of this encounter Care Teams Agency Appointments Supervisor Relationship Specialty Start Date End Date Amanda Watkins MD [address] [place] [address] PCP - General Family Medicine 04/07/19 Hiro Ram FNP [address] [place] [address] Nurse Practitioner Family Medicine 07/06/23 Raad Arias, TheaD [address] [place] [address] Pharmacist Internal Medicine 10/19/24 [facility] 07/03/22 08/16/24 Ja [facility] 08/10/24 03/12/25 [facility] 03/08/25 documented as of this encounter
--- OUTSIDE RECORDS SUMMARY | 2025-07-08 11:09 | XMS_ITS | Encounter Summary ---
Author Organization [employer] Address 75 [facility] 7t [place] [address] Care Team Providers Care Hosiery Repairer Name Role Phone Amanda Watkins MD Primary Care Provide r Hiro Ram PRESCHOOL ASSOCIATE TEACHER Unavailable Unavailable Raad Arias PharmD Unavailable [phone] Encounter Details Date Type Department Care Team (Late st Contact Info) Description 12/22/2024 Orders Only [facility] MEDICINE 230 [place] [address] Amanda Watkins MD 230 [place] [address] Social History Tobacco Use Types Packs/Day Years [...] Description 07/09/2025 3:30 PM EST Office Visit [address] [address] Amanda Watkins MD [address] [place] [address] 09/21/2025 10:00 AM EST Telemedicine [address] [address] Kayley Alanis RN documented as of this [...] AM EDT Narrative 01/05/2025 9:59 AM EDT [address] [address] XRay Report Signed Patient: Mary Lou Godwin MR#: [id number] : 1950 Acct:[id number] Age/Sex: 74 / F ADM Date: 01/05/25 Loc: HO.ED Attending Dr: Ordering Physician: Yelena Alvarez MD Date of Service: 01/05/25 Procedure(s): XR humerus RT Accession Number(s): [id number] cc: Amanda Watkins MD; Yelena Alvarez MD [...] 01/05/25 0956 DD/ 0935 TD/TT: 01/05/25 0948 Web Architect: Procedure Note Donotuseinterpreter, Image - 01/05/[address] [address] XRay Report Signed Patient: Mary Lou Godwin ZMR#: M [id number] : 1950cct:[id number] Age/Sex: 74 / FADM Date: 01/05/25 Loc: .ED Attending Dr: Ordering Physician: Yelena Alvarez MD Date of Service: 01/05/25 Procedure(s): XR humerus RT Accession Number(s): [id number] cc: Amanda Watkins MD; Yelena Alvarez MD [...] OV> 01/05/25 0956 DD/ TD/TT: 01/05/25 0948 Web Architect: [facility] External Provider IMG XR PROCEDURES Edited Result - Final * XR Shoulder 2+ Views Right (01/05/2025 8:27 AM EDT) Anatomical Region Laterality Modality Upper Extremities, Shoulder Right Radi ographic Imaging 01/05/2025 8:27 AM EDT Narrative 01/05/2025 9:59 AM EDT [place] [address] XRay Report Signed Patient: Mary Lou Godwin MR#: M [id number] : 1950 Acct:[id number] Age/Sex: 74 / F ADM Date: 01/05/25 Loc: HO.ED Attending Dr: Ordering Physician: Yelena Alvarez MD Date of Service: 01/05/25 Procedure(s): XR shoulder RT min 2V Accession Number(s): [id number] cc: Amanda Watkins MD; Yelena Alvarez MD [...] in OV> 01/05/25955 DD/ 6 TD/TT: 01/05/25947 Web Architect: Procedure Note Donotuseinterpreter, Image - 01/05/[address] [address] XRay Report Signed Patient: Mary Lou Godwin ZMR#: M [id number] : 9Acct:[id number] Age/Sex: 74 / FADM Date: 01/05/25 Loc: .ED Attending Dr: Ordering Physician: Yelena Alvarez MD Date of Service: 01/05/25 Procedure(s): XR shoulder RT min 2V Accession Number(s): [id number] cc: Amanda Watkins MD; Yleena Alvarez MD EXAMINATION: XR SHOULDER, RIGHT XR [...] in OV> 01/05/25955 DD/ 6 TD/TT: 01/05/25947 Web Architect: [facility] External Provider IMG XR PROCEDURES Edited Result - Final * XR Elbow 1-2 Views Right (01/05/2025 8:27 AM EDT) Anatomical Region Laterality Modality Upper Extremities, Elbow Right Radiogr aphic Imaging 01/05/2025 8:27 AM EDT Narrative 01/05/2025 9:57 AM EDT [address] [address] XRay Report Signed Patient: Mary Lou Godwin Z MR#: M [id number] : 1950 Acct:[id number] Age/Sex: 74 / F ADM Date: 01/05/25 Loc: HO.ED Attending Dr: Ordering Physician: Yelena Alvarez MD Date of Service: 01/05/25 Procedure(s): XR elbow RT 2V Accession Number(s): [id number] cc: Amanda Watkins MD; Yelena Alvarez MD [...] 01/05/25 0954 DD/ 0827 TD/TT: 01/05/25 0948 Web Architect: Procedure Note Donotuseinterpreter, Image - 01/05/[address] [address] XRay Report Signed Patient: Mary Lou Godwin ZMR#: M [id number] : 1950cct:[id number] Age/Sex: 74 / FADM Date: 01/05/25 Loc: HO.ED Attending Dr: Ordering Physician: Yelena Alvarez MD Date of Service: 01/05/25 Procedure(s): XR elbow RT 2V Accession Number(s): [id number] cc: Amanda Watkins MD; Yelena Alvarez MD [...] MD 01/05/2025 09:54 AM EDT RP Workstation: [employer]-[id number] Dictated By: Dilip Hamemr MD Signed By: <Electronically signed by Dilip Hammer MD in OV> 01/05/25 0954 DD/ TD/TT: 01/05/2548 Web Architect: [facility] External Provider IMG XR PROCEDURES Edited Result - Final documented in this encounter Visit Diagnoses Not on filedocumented in this encounter Additional Health Concerns Assessment Noted Time PHQ-9 Depression Total Score: 0 09/01/19 1:18 PM EST documented as of this encounter Care Teams Hosiery Repairer Relationship Specialty Start Date End Date Amanda Watkins MD [address] [place] [address] PCP - General Family Medicine 04/07/19 Hiro Ram FNP [address] [place] [address] Nurse Practitioner Family Medicine 07/06/23 Raad Arias PharmD [address] [place] [address] Pharmacist Internal Medicine 10/19/24 [facility] 08/10/24 03/12/25 [facility] 03/08/25 documented as of this encounter
--- OUTSIDE RECORDS SUMMARY | 2025-07-08 11:09 | XMS_ITS | Encounter Summary ---
Author Organization [employer] Address 75 [facility] 7t [place] [address] Care Team Providers Care Fitter / Welder Name Role Phone Amanda Watkins MD Primary Care Provide r Hiro Ram DRYING MACHINE TENDER Unavailable Unavailable Raad Arias PharmD Unavailable Reason for Visit * Reason Comments Med Refill Encounter Details Date Type Department Care Team (Late st Contact Info) Description 05/28/2025 Refill [facility] MEDICINE [address] [place] [address] Amanda Watkins MD [address] [place], [place] [phone] Chronic bilateral low back pain with bilateral [...] Description 07/09/2025 3:30 PM EST Office Visit [facility] MEDICINE [address] [place] [address] Amanda Watkins MD [address] [place] [address] 09/21/2025 10:00 AM EST Telemedicine [facility] MEDICINE [address] [place] [address] Kayley Alanis RN documented as of this encounter Visit Diagnoses Diagnosis Chronic bilateral low back pain with bilateral sciatica documented in this encounter Additional Health Concerns Assessment Noted Time PHQ-9 Depression Total Score: 14 025 2:41 PM EDT documented as of this encounter Care Teams Fitter / Welder Relationship Specialty Start Date End Date Amanda Watkins MD [address] [place] [address] PCP - General Family Medicine 04/07/19 Hiro Ram FNP [address] [place] [address] Nurse Practitioner Family Medicine 07/06/23 Raad Arias, PharmD [address] [place] [address] Pharmacist Internal Medicine 10/19/24 [facility] 03/08/25 documented as of this encounter
--- OUTSIDE RECORDS SUMMARY | 2025-07-08 11:09 | XMS_ITS | Encounter Summary ---
Author Organization [employer] Address [address] [facility] 7t [place] [address] Care Team Providers Care Pipe Threader Name Role Phone Amanda Watkins MD Primary Care Provide r Hiro Ram ENGINEER GEOPHYSICAL [employer]ORATORY Unavailable Unavailable Raad Arias PharmD Unavailable [phone] Reason for Visit * Reason Onset Date Comments Durable Medical Equipment 01/09/2025 Encounter Details Date Type Department Care Team (Late st Contact Info) Description 01/09/2025 Telephone [facility] [address] [place] [address] Amanda Watkins MD [address] [place] [address] Durable Medical Equipment Social History Tobacco Use [...] Description 07/09/2025 3:30 PM EST Office Visit [facility] [address] [place] [address] [phone] Amanda Watkins MD [address] [place] [address] 09/21/2025 10:00 AM EST Telemedicine [facility] [address] [place] [phone] Kayley Alanis, RN documented as of this encounter Visit Diagnoses Not on filedocumented in this encounter Additional Health Concerns Assessment Noted Time PHQ-9 Depression Total Score: 0 09/01/19 1:18 PM EST documented as of this encounter Care Teams Pipe Threader Relationship Specialty Start Date End Date Amanda Watkins MD [address] [place] [address] PCP - General Family Medicine 04/07/19 Hiro Ram FNP [address] [place] [address] Nurse Practitioner Family Medicine 07/06/23 Raad Arias, TheaD [address] [place] [phone] Pharmacist Internal Medicine 10/19/24 [facility] 08/10/24 03/12/25 [facility] 03/08/25 documented as of this encounter
--- OUTSIDE RECORDS SUMMARY | 2025-07-08 11:09 | XMS_ITS | Encounter Summary ---
Author Organization [employer] Address [address] [facility] 7t [place] [address] Care Team Providers Care Gunsmith Apprentice Name Role Phone Amanda Watkins MD Primary Care Provide r Hiro Ram Unavailable Unavailable Raad Arias PharmD Unavailable [phone] Reason for Visit * Reason Comments Med Refill Encounter Details Date Type Department Care Team (Late st Contact Info) Description 11/18/2023 Refill [facility] [address] [place] [address] Hiro Ram FNP Social History Tobacco Use [...] Description 07/09/2025 3:30 PM EST Office Visit [facility] [address] [place] [phone] Amanda Watkins MD [address] [place] [phone] 09/21/2025 10:00 AM EST Telemedicine [facility] [address] [place] [phone] Kayley Alanis RN documented as of this encounter Visit Diagnoses Not on filedocumented in this encounter Additional Health Concerns Assessment Noted Time PHQ-9 Depression Total Score: 8 07/19/20 23 11:34 AM EST documented as of this encounter Care Teams Gunsmith Apprentice Relationship Specialty Start Date End Date Amanda Watkins MD [address] [place] [phone] PCP - General Family Medicine 04/07/19 Hiro Ram FNP [address] [place] [phone] Nurse Practitioner Family Medicine 07/06/23 Raad Arias, TheaD [address] [place] [address] Pharmacist Internal Medicine 10/19/24 [facility] 07/03/22 08/16/24 [facility] 08/10/24 03/12/25 [facility] 03/08/25 documented as of this encounter
--- OUTSIDE RECORDS SUMMARY | 2025-07-08 11:09 | XMS_ITS | Encounter Summary ---
Author Organization [employer] Address [address] [facility] 7t [place] [address] Care Team Providers Care Bread Stacker Name Role Phone Amanda Watkins MD Primary Care Provide r Hiro Ram AUDIOLOGIST Unavailable Unavailable Raad Arias PharmD Unavailable [phone] Encounter Details Date Type Department Care Team (Late st Contact Info) Description 06/27/2024 Orders Only [facility] [address] [place] [address] Amanda Watkins MD [address] [place] [address] Social History Tobacco Use Types Packs/Day Years [...] Description 07/09/2025 3:30 PM EST Office Visit [facility] [address] [place] [phone] Amanda Watkins MD [address] [place] [phone] 09/21/2025 10:00 AM EST Telemedicine [address] [address] Kayley Alanis RN documented as of this encounter Visit Diagnoses Not on filedocumented in this encounter Additional Health Concerns Assessment Noted Time PHQ-9 Depression Total Score: 10 024 3:23 PM EDT documented as of this encounter Care Teams Bread Stacker Relationship Specialty Start Date End Date Amanda Watkins MD [address] [place] [phone] PCP - General Family Medicine 04/07/19 Hiro Ram FNP [address] [place] [address] Nurse Practitioner Family Medicine 07/06/23 Raad Arias, TheaD [address] [place] [phone] Pharmacist Internal Medicine 10/19/24 [facility] 07/03/22 08/16/24 [facility] 08/10/24 03/12/25 [facility] 03/08/25 documented as of this encounter
--- OUTSIDE RECORDS SUMMARY | 2025-07-08 11:09 | XMS_ITS | Encounter Summary ---
Author Organization [employer] Address [address] [facility] 7t [place] [address] Care Team Providers Care Cabin Outfitter Name Role Phone Amanda Watkins MD Primary Care Provide r Hiro Ram STOCK HANGER Unavailable Unavailable Raad Arias PharmD Unavailable [phone] Reason for Visit * Reason Onset Date Comments Appointment Request 04/30/2025 Encounter Details Date Type Department Care Team ([facility] st Contact Info) Description 04/30/2025 Telephone [facility] [address] [place] [address] Amanda Watkins MD [address] [place] [address] Appointment Request Social History Tobacco Use Types [...] requesting to reschedule CDTM apt Contact at [phone] (frisian) documented in this encounter Plan of Treatment Upcoming Encounters Date Type Department Care Team (Late st Contact Info) Description 07/09/2025 3:30 PM EST Office Visit [facility] [address] [place] [phone] Amanda Watkins MD [address] [place] [phone] 09/21/2025 10:00 AM EST Telemedicine [facility] [address] [place] [phone] Kayley Alanis RN documented as of this encounter Visit Diagnoses Not on filedocumented in this encounter Additional Health Concerns Assessment Noted Time PHQ-9 Depression Total Score: 14 025 2:41 PM EDT documented as of this encounter Care Teams Cabin Outfitter Relationship Specialty Start Date End Date Amanda Watkins MD [address] [place] [address] PCP - General Family Medicine 04/07/19 Hiro Ram FNP [address] [place] [address] Nurse Practitioner Family Medicine 07/06/23 Raad Arias, TheaD [address] [place] [address] Pharmacist Internal Medicine 10/19/24 [facility] 03/08/25 documented as of this encounter
--- OUTSIDE RECORDS SUMMARY | 2025-07-08 11:09 | XMS_ITS | Encounter Summary ---
Author Organization [employer] Address [address] [facility] 7t [place] [address] Care Team Providers Care Choir Singer Name Role Phone Amanda Watkins MD Primary Care Provide r Hiro Ram DIRECTOR GOVERNMENT Unavailable Unavailable Raad Arias PharmD Unavailable [phone] Reason for Visit * Reason Onset Date Comments Nurse Triage 04/17/2025 Encounter Details Date Type Department Care Team ([facility] st Contact Info) Description 04/17/2025 Telephone [facility] MED[facility]INE [address] [place] [address] Amanda Watkins MD [address] [place] [address] Nurse Triage Social History Tobacco Use Types [...] Mary Lou Cisneros to triage below at [phone]. No answer, line not available. . Call to all other alterante numbers. Left VM to return call. Number listed as contact in CDTM visit notes as [phone]. No answer, LVM to return call to [facility] triage line. Pt has my chart set [...] crying screaming in pain. Contact musa at [phone] documented in this encounter Plan of Treatment Upcoming Encounters Date Type Department Care Team (Late st Contact Info) Description 07/09/2025 3:30 PM EST Office Visit [facility] MEDICINE [address] [place] [phone] Amanda Watkins MD [address] [place] [phone] 09/21/2025 10:00 AM EST Telemedicine [facility]INE [address] [place] [address] Kayley Alanis, PHILLIP documented as of this encounter Visit Diagnoses Not on filedocumented in this encounter Additional Health Concerns Assessment Noted Time PHQ-9 Depression Total Score: 14 025 2:41 PM EDT documented as of this encounter Care Teams Choir Singer Relationship Specialty Start Date End Date Amanda Watkins MD [address] [place] [phone] PCP - General Family Medicine 04/07/19 Hiro Ram FNP [address] [place] [address] Nurse Practitioner Family Medicine 07/06/23 Raad Arias, TheaD [address] [place] [phone] Pharmacist Internal Medicine 10/19/24 [facility] 03/08/25 documented as of this encounter
--- OUTSIDE RECORDS SUMMARY | 2025-07-08 11:09 | XMS_ITS | Encounter Summary ---
Author Organization [employer] Address [address] [facility] 7t [place] [address] Care Team Providers Care Crown Presser Name Role Phone Amanda Watkins MD Primary Care Provide r Hiro Ram FLIGHT ATTENDANT/INFLIGHT SUPERVISOR Unavailable Unavailable Raad Arias PharmD Unavailable Reason for Visit * Reason Onset Date Comments Hospital Follow-up 03/23/2024 Encounter Details Date Type Department Care Team (Late st Contact Info) Description 03/23/2024 Telephone [facility]INE [address] [place] [address] Amanda Watkins MD [address] [place], [place] [phone] Hospital Follow-up Social History Tobacco Use Types [...] from pt requesting a HDF appt. Hospital: [facility] Date of admission: 03/18 Discharge date: 03/21 Diagnosed: Cellulitis documented in this encounter Plan of Treatment Upcoming Encounters Date Type Department Care Team (Late st Contact Info) Description 07/09/2025 3:30 PM EST Office Visit [facility] [address] [place] [phone] Amanda Watkins MD [address] [place] [phone] 09/21/2025 10:00 AM EST Telemedicine [facility] [address] [place] [phone] Kayley Alanis RN documented as of this encounter Visit Diagnoses Not on filedocumented in this encounter Additional Health Concerns Assessment Noted Time PHQ-9 Depression Total Score: 10 024 3:23 PM EDT documented as of this encounter Care Teams Crown Presser Relationship Specialty Start Date End Date Amanda Watkins MD [address] [place] [address] PCP - General Family Medicine 04/07/19 Hiro Ram FNP [address] [place] [address] Nurse Practitioner Family Medicine 07/06/23 Raad Arias, TheaD [address] [place] [address] Pharmacist Internal Medicine 10/19/24 [facility] 07/03/22 08/16/24 Ja [facility] 08/10/24 03/12/25 [facility] 03/08/25 documented as of this encounter
--- OUTSIDE RECORDS SUMMARY | 2025-07-08 11:09 | XMS_ITS | Encounter Summary ---
Author Organization [employer] Address [address] [facility] 7t [place] [address] Care Team Providers Care Mud Temperer Name Role Phone Amanda Watkins MD Primary Care Provide r Hiro Ram STRIPER Unavailable Unavailable Raad Arias PharmD Unavailable [phone] Reason for Visit * Reason Onset Date Comments Med Refill 01/03/2025 Encounter Details Date Type Department Care Team (Late st Contact Info) Description 01/03/2025 Refill [facility] [address] [place] [address] Amanda Watkins MD [address] [place] [address] Chronic bilateral low back pain with bilateral [...] not with her 12/10/23 - [facility]P[facility] * Telephone Encounter - Sky Sánchez - 01/03/2025 1:12 PM EDT TC from pt requesting medication refill. Medications needing refill: oxyCODONE-acetaminophen (Percocet) 5-325 MG tablet To be sent to: [facility] - [place], [place] - [address] documented in this encounter Plan of Treatment Upcoming Encounters Date Type Department Care Team (Late st Contact Info) Description 07/09/2025 3:30 PM EST Office Visit [facility] [address] [place] [phone] Amanda Watkins MD [address] [place] [phone] 09/21/2025 10:00 AM EST Telemedicine [address] [address] Kayley Alanis, PHILLIP documented as of this encounter Visit Diagnoses Diagnosis Chronic bilateral low back pain with bilateral sciatica documented in this encounter Additional Health Concerns Assessment Noted Time PHQ-9 Depression Total Score: 0 09/01/19 1:18 PM EST documented as of this encounter Care Teams Mud Temperer Relationship Specialty Start Date End Date Amanda Watkins MD [address] [place] [phone] PCP - General Family Medicine 04/07/19 Hiro Ram FNP [address] [place] [phone] Nurse Practitioner Family Medicine 07/06/23 Raad Arias, Carlos [address] [place] [phone] Pharmacist Internal Medicine 10/19/24 [facility] 08/10/24 03/12/25 [facility] 03/08/25 documented as of this encounter
--- OUTSIDE RECORDS SUMMARY | 2025-07-08 11:09 | XMS_ITS | Data Portability ---
Author Organization [employer] [facility], [facility] Address [address] [place] [address] Care Team Providers Care Qm Nurse Name Role Phone HIM CCA OTHER CRUZ MAURICE Primary Care Provider [phone] Assessment Encounter Date Assessment Date Assessment LastModified by Organization Details LastModified Time 03/27/2024 03/27/2024 I provided real -time medical direction via phone for this encounter, and was available for additional phone based assistance as needed. I have reviewed and agree with the Assessment and Plan as documented by the Residential [facility]. We discussed the diagnostic uncertainty of home [...] to call 911- verbalized understanding of instruction [email or web address] Not available 03/27/2024 16:48:02 05/29/2024 05/29/2024 service [...] in the field was performed by my continuity tester colleague, as noted above, I provided real-time [...] Assessment and Plan as documented by the [facility]idential [facility]. We discussed the diagnostic uncertainty of home [...] to call 911- verbalized understanding of instruction [email or web address] Not available 02/26/2025 13:27:16 03/23/2025 03/23/2025 service called for left shoulder pain found 74 lori with hx HTN chronic back pain fibromyalgic OA osteoporisis kidney injury (Cr 2.8), recently improved (Cr 1.2) c/o continued left shoulder pain refractory to prescribed PO oxycodone denies new trauma or injury of note records 2025-03-11 and 2025-03-09 from [facility] show R shoulder XR with chronic degenerative [...] Lab BMP, serum or plasma 2024 025 [facility], [address] [place] [address], [id number] 5 18:49:55 culture, urine 2023 024 [facility] (Centralized Electronic Ordering - All Locations), Patient Can Go To The Location Of Their Choice, [id number] 4 08:09:10 urinalysis, dipstick 2023 024 [facility], [address] [place] [address], [id number] 20:30:58 Referral None recorded. Procedures None recorded. Surgeries None recorded. Imaging None recorded. Medication Orders amoxicillin 875 mg-potassiu m clavulanate 125 mg tablet 2024 025 [facility], [address] [place] [address], [id number], 5 12:52:33 amoxicillin 500 mg-potassiu m clavulanate 125 mg tablet 2024 025 [email or web address] 0 [facility], [address] [place] [address], [id number], 5 12:44:30 bacitracin 500 unit/gram topical ointment 2024 025 [facility], [address] [place] [address], [id number], 5 12:52:29 furosemide 10 mg/mL injection solution 2024 025 [email or web address] 0 [facility], [address] [place] [address], [id number], 5 13:25:40 albuterol sulfate 2.5 mg/3 mL (0.083 %) solution for nebulizatio n 2024 025 [email or web address] 0 [facility], [address] [place] [address], [id number], 5 12:44:30 albuterol sulfate 2.5 mg/3 mL (0.083 %) solution for nebulizatio n 2024 025 [facility], [address] [place] [address], [id number], 5 12:52:33 albuterol sulfate HFA 90 mcg/actuati on aerosol inhaler 2024 025 [facility], [address] [place] [address], [id number], 5 12:52:28 Ciprodex 0.3 %-0.1 % ear drops,suspe nsion 2024 025 [facility], [address] [place] [address], [id number], 5 12:33:11 clotrimazol e 1 % topical cream 2023 024 [facility], [address] [place] [address], [id number], 4 10:37:01 bacitracin 500 unit/gram topical ointment 2023 024 [email or web address] 0 [facility], [address] [place] [address], [id number], 4 11:28:20 bacitracin 500 unit/gram topical ointment 2023 024 [facility], [address] [place] [address], [id number], 14:30:32 Patient TargetsNo targets recorded. Patient Instructions Encounter Date Encounter Id Patient Instructions Last Modified By Organization Details Last Modified Time 03/27/2024 [id number] wound care* [email or web address] Not available 11:28:21 Reason for Referral None Reported. Results Created Date Observation Date Name Description Value Unit Range Abnormal Flag Note LastModifiedBy Organization Detail LastModifiedTime 05/29/2005/31/2024 URINE CULTU RE,CO MPREH ENSIV E urine culture,comp rehensive Final report Not Available [facility] [address] [place], [address], 05/31/2024 08:09:10 05/29/2005/31/2024 URINE CULTU RE,CO MPREH ENSIV E result 1 COMMEN T Mixed uroge nital mary Great er than 100,0 00 colon y formi ng units per mL Not Available [facility] [address] [facility], [place], [address], 05/31/2024 08:09:10 Result Notes None recorded. Problems Name Problem SNOMED Code Status Onset Date Resolution Date Notes Provider Name and Address Organization Details Recorded Time Essential hypertensio n 29418263 Active 2022 Len Nguyen MD [address] [place] [address],[address], [place], [address], [employer], [employer] 18:59:08 Arterial insufficien cy 088770851 Active 2023 Len Nguyen MD [address] [facility],[address], [place], [address], [employer], [employer] 18:58:53 Asthma 028081358 Active 2023 Len Nguyen MD [address] [facility],[address], [place], [address], [employer], [employer] 18:59:00 Atrial fibrillatio n 52170448 Active 2023 Len Nguyen MD [address] [place] [address],[address], [place], [address], [place] [facility] 18:59:03 Arthritis 6827032 Active 2023 Len Nguyen MD [address] [place] [address],[address], [place], [address], [place] [facility] [employer] 18:58:58 Chronic kidney disease stage 3B 422613489 Active 2023 Len Nguyen MD [address] [place] [address],[address], [place], [address], [place] [facility] 18:58:51 Chronic diastolic heart failure 169431948 Active 2024 Len Nguyen MD [address] [place] [address],[address], [place], [address], [place] [facility] [employer] 18:58:42 Hyperglycem ia due to type 2 diabetes mellitus 3646042682903 09 Active 2024 Len Nguyen MD [address] [place] [address],[address], [place], [address], [place] [facility] [employer] 18:58:45 Moderate recurrent major depression 39944484 Active 2024 Len Nguyen MD [address] [place] [address],[address], [place], [address], [place] [employer] 18:58:37 Morbid obesity 531454556 Active 2024 Len Nguyen MD [address] [place] [address],[address], [place], [address], [place] [facility] [employer] 18:58:39 Problem Notes None recorded. Medical Equipment None Reported. Allergies Allergen ID Allergen Name Allergen Category Reaction Reaction Severity Criticality Documentation Date Start Date Code Code System Note Provider Name and Address Organization Details Recorded Time 46263 hydrocodo ne Not available Not available Not available Not available 03/23/2025 5489 RxNorm Len Nguyen MD [address] [place] [address],[address], [place], [address], [place] [facility] [employer] [employer] 18:59:23 5119 codeine medicatio n Not available Not available Not available 12/30/2023 2670 RxNorm Not Available [employer] - production 5 10:35:11 Medications Name Sig [...] Not Available Not Available Not Available [employer] [place] Lite kit USE DIRECTED TO TEST BLOOD [...] Available No t Available [employer] Mickey 2 [place] USE DIRECTED EVERY 8 HOURS active Not Available Not Available No t Available Trulicity 3 mg/0.5 mL subcutaneous pen injector INJECT ONE PEN (= 3MG) SUBCUTANEOU SLY ONCE A WEEK DIRECTED active Not Available Not Available No t Available Vitals Date Recorded Body temperature Respiratory rate Oxygen saturation Heart rate Systolic And Diastolic Provider Name and Address Organization Details Last Updated DateTime 5 99.2 [degF] 14 /min 98 % 60 /min 108/57 mm[Hg] Not Available [employer] 5 17:25:24 Date Recorded Body height Body mass index (BMI) Body weight Provider Name and Address Organization Details Last Updated DateTime 02/26/2025 134.62 cm 61.5 kg/m2 414136 g Radha Foster MD [address] [facility],[address], [place], [address], [place] [facility] [employer] 02/26/2025 17:57:17 Date Recorded Oxygen saturation Respiratory rate Heart rate Body temperature Systolic And Diastolic Provider Name and Address Organization Details Last Updated DateTime 5 92 % 18 /min 68 /min 98.8 [degF] 152/84 mm[Hg] Not Available [employer] 5 12:10:50 Date Recorded Oxygen saturation Body weight Body temperature Respiratory rate Heart rate Body height Systolic And Diastolic Provider Name and Address Organization Details Last Updated DateTime 5 98 % 513998. 08 g 99 [degF] 16 /min 72 /min 154.94 cm 141/71 mm[Hg] Not Available [employer] - production 5 18:57:20 Date Recorded Respiratory rate Oxygen saturation Body height Heart rate Body temperature Body weight Systolic And Diastolic Provider Name and Address Organization Details Last Updated DateTime 4 16 /min 94 % 157.48 cm 60 /min 98.7 [degF] 866563. 448 g 129/77 mm[Hg] Not Available [employer] - production 4 11:19:40 Date Recorded Heart rate Body height Body temperature Respiratory rate Oxygen saturation Body weight Systolic And Diastolic Provider Name and Address Organization Details Last Updated DateTime 4 58 /min 134.62 cm 99.3 [degF] 16 /min 95 % 461305. 632 g 150/73 mm[Hg] Not Available [employer] - production 4 17:02:13 Social History None recorded. Functional Status None recorded. Mental Status None recorded. Family History Nothing Reported. Medical History No medical history recorded. Gynecological HistoryNo gynecological history recorded. Obstetrics History GPAL:G 0 P 0 0 0 0 Past Encounters Encounter ID Performer Location Encounter Start Date Encounter Closed Date Diagnosis/Indication Diagnosis SNOMED-CT Code Diagnosis ICD10 Code Diagnosis IMO Codes Diagnosis Note [id number] Radha Foster MD [facility] [address] [place] [phone] 12/30/2023 14:10:14 12/31/2023 21:23:21 Cellulitis of lower limb 174292885 L03.119 left lower leg primarily ? starting [...] better staph coverage-a dvised to apply sparingly. [id number] Radha Foster MD [facility] [address] [place] [id number] 02/09/2024 16:16:11 02/10/2024 13:33:55 Cellulitis of lower limb 221210368 L03.119 left lower leg primarily, less on [...] better staph coverage-a dvised to apply sparingly. [id number] Angely Lake MD [facility] [address] [place] [phone] 02/23/2024 15:31:54 02/23/2024 22:21:20 Peripheral vascular disease 768937685 I73.9 73 year old female being evaluated [...] assessment and plan as documented by the continuity tester. I provided real-time medical direction for this encounter and was immediatel y available to provide additional phone-base d assistance as needed. We discussed the diagnostic uncertaint y of home visits and associated risks. We discussed the need to seek care urgently/e mergently in the setting of any new or worsening symptoms. [id number] Radha Foster MD [facility] [address] [place] [id number] 03/27/2024 11:19:23 03/27/2024 22:47:07 Wound of skin 743375461 T14.8XXA Advised to elevate the leg/not use [...] reviewed she is only allergic to codeine. [id number] Len Nguyen MD [facility] [address] [place] [id number] 05/29/2024 17:02:10 05/30/2024 10:24:58 Tinea cruris 504867409 B35.6 Urinary symptoms 9671172 08 R39.9 [id number] Michelle Rg MD [facility] [address] [place] [id number] 09/25/2024 17:25:19 09/26/2024 08:34:36 Otitis externa of right ear 3713874042 053098 H60.91 [id number] Radha Foster MD [facility] [address] [phone] 02/26/2025 12:10:42 02/26/2025 19:21:42 Peripheral edema 814420464 R60.0 25213 w/ cellulitis LLE-doubt DVT given no calf tenderness , no cords, negative Homans and patient is on Eliquis.Al deepgies and pharmacy reviewed. Patient has had Augmentin [...] exac erbation of chronic obstructive pulmonary disease 251237766 J44.1 139419 Status post neb sat 99% heart rate 71 and breath sounds clear- feels good/Needs to use 02 2lNC- sent in new albuterol mdi and nebulizer rx-patient 's nebulizer and her albuterol which may be outdated is at her daughters and she has run out of her albuterol MDI so new Rx sent. Advised using regularly will help with chronic dyspnea on exertion. [id number] Len Nguyen MD [facility] Medical [address] [phone] 03/23/2025 18:57:16 03/23/2025 23:47:02 Bilateral chronic pain of upper limbs 5081228868 5501818 M25.511 M25.512 G89.29 69807256 Health Concerns Section Related Observation LastModified by Organization Detai ls LastModified Time None Recorded Concern Status LastModified by Organization Details LastModified Time None Recorded Advance Directives Directive None Recorded Payers Insurance Date Sequence Insurance Name Policy Number Policy Meza Covered Member ID Meza Member ID Guarantor Name 03/23/2025 1 [facility] - DOS ON OR AFTER 2022 - DUAL ELIGIBLE - LONG-TERM OPTIONS AND ONE CARE (MEDICARE REPLACEMENT/ADV ANTAGE - HMO) Mary Lou Cisneros [id number] Mary Lou Cisneros Notes Date Note Type Note Provider Name and Address Organization Details Recorded Time 03/27/20 24 text/ht ml ROS as noted in the HPI CRC Nurse Triage Notes (Rishi Domínguez): Reason For Request: left leg pain Chief Complaints: Pain PMH: Diabetes, Hypertension, COPD/Asthma Other Allergies: NKDA Comments: Intelligence Analyst verified the member's name//address and phone [...] Denies SOB ................................. ................................. ................................. ................................. ......... Residential [facility] Note From Markell Villagomez: Pt s daughter/CG reports pt was seen at [facility] last week for cellulitis of the [...] ......... Disposition: Fulfilled Radha Foster MD [address] [facility],[address], [place], [address], [facility] - [employer] [facility] 03/27/2024 16:49:56 05/29/20 24 text/ht ml HPI: pmhx: UTI, candidiasis of vagina UTI, urine retention.Call returned to Mary Lou Warner Gomesa to triage below. Reports having rash on callie area x 1 week. Per daughter no fluid filled spots. Small red pin point spots. Pt also having urinary frequency. Has applied Vaseline to area with mild relief. Per daughter concerned as pt is DM and has been scratching area concerned for infection. Unable to bring pt to [place] at [facility] as pt is bed bound. Agrees to [employer] referral. Confirmed address, contact number and allergies. ................................. ................................. ................................. ................................. ......... CRC Nurse Triage Notes (Melinda Melvin): Chief Complaints: Rash, UTI/Pyelonephritis PMH: COPD/Asthma, Diabetes, Hypertension, COPD/Asthma Other Allergies: CODIENE Comments: CRC RN did not require any additional information to process this visit. [facility]idential [facility] Organization Information for Jerman Anderson [employer] Legal Name: [employer]. Address: [address] [place] [address], Funeral Pre Arrangement Counselor: Jhon Strickland MD CLIA No.: [id number] Residential [facility] POC Test Results from Jerman Anderson - [facility] Blood Glucose Measurement (16:52:17) Blood Glucose: 335 mg/dL Urine Dipstick (16:52:27) Urine leukocytes: + ALVIN Urine nitrites: + NIT Urine urobilinogen: - URO Urine protein: +/- PRO Urine pH: 6.0 pH Urine blood: 50 lesli/ul BLO Urine specific gravity: 1.005 SG Urine ketones: - KET Urine bilirubin: - ROSI Urine glucose: ++++ GLU ................................. ................................. ................................. ................................. ......... Residential Collections Note From Justin Jerman: [facility] visit for female pt. Pt presents with family and EL TEACHER. Pt has reportedly had redness and irritation in her groin for 1 week in addition to high blood sugars. V/S taken as listed. Pt afebrile, though temp seems to be elevated with pt having taken acetaminophen today. EL TEACHER changed pt's diaper and redness was noted in addition to smell consistent with possible fungal infection. Obtained urine sample positive for leukocytes and nitrates and blood and glucose. Blood glucose elevated at 335 mg/dL. Family reports difficulty maintaining blood sugar and that pt has not adhered to dietary restrictions. Urine culture obtained. Consulted with [facility] [place]. Nguyen who prescribed clotrimazole and ordered urine culture. Reviewed red flags for ED. Pt education provided. Culture delivered to [facility]. [facility] Lab Orders: culture, urine: Performed ................................. ................................. ................................. ................................. ......... Disposition: Fulfilled Len Nguyen MD [address] [place] [address],[address], [place], [address], [employer] 05/29/2024 22:50:45 09/25/19 25 text/ht ml CRC Nurse Triage Notes (Margarita Verde - [...] s/s and seek emergency treatment if needed. Residential Collections Organization Information for Markell Villagomez Business Legal Name: [facility] [employer] Address: [address] [place] [address], Funeral Pre Arrangement Counselor: Rob Bhagat MD IA No.: [id number] Residential Collections POC Test Results from [employer] Rapid COVID antigen (17:31:49) COVID: - Rapid [...] reported s/s and seek emergency treatment if needed.[facility] HPI: known FM, chronic pain, uses oxycodone and gabapentin for this. 3-7d R ear pain. some sinus congestion ................................. ................................. ................................. ................................. ......... Residential Collections Note From Markell Villagomez: This 74-year-old female [...] this plan. ................................. ................................. ................................. ................................. ......... [facility] Consulted: Michelle Rg ................................. ................................. ................................. ................................. ......... Disposition: Fulfilled Michelle Rg MD [address] [place] [address],[address], [place], [address], [employer] 09/25/2024 18:01:43 02/27/20 25 text/ht ml ROS as noted in the HPI CRC Nurse Triage Notes (Agustín Shipley): Reason For Request: Pt's EL TEACHER reporting discoloration changes in her legs (redness)Denies: [...] 74 y.o female complains of Extremity PainPatient's EL TEACHER calling reporting patient is having red discoloration to L lower leg for the last two weeks. EL TEACHER reports this has happened before and the [...] H&H on 08/02/2024 was 7.4 and 25.3 Residential Collections Organization Information for [employer] Legal Name: [employer]. Address: [address] [place] [address], Funeral Pre Arrangement Counselor: Jhon Strickland MD CLIA No.: [id number] Residential Collections POC Test Results from [employer]ARTI iSTAT Chem8+ (12:24:44) Na: 135 mEq/L K: 4.2 mEq/L Cl: 93 mEq/L iCa: 1.05 mmol/L TCO2: 32 mmol/L Glu: 264 mg/dL BUN: 23 mg/dL Crea: 1.4 mg/dL Hct: 24 % Hb: 8.2 g/dL A mmol/L Cartridge Number: [id number] Attachments uploaded as part of this test result can be found under Documents section. ................................. ................................. ................................. ................................. ......... Residential Collections Note From [place]: Encountered patient supine [...] below the knee; peripheral pulses present throughout. [facility] contacted: reports they will treat patient for a suspected infection while also addressing possible fluid retention. Augmentin x1 administered. Albuterol neb treatment x1 administered. 40mg IM Furosemide administered. All medications administered after reconciling r ights with patient and family. [facility] reports they will send a prescription for [...] states she is comfortable remaining home today. [facility] Lab Orders: BMP, serum or plasma: Performed [facility] Medication Orders: amoxicillin 500 mg-potassium clavulanate 125 mg tablet: Administered furosemide 10 mg/mL injection solution: Administered albuterol sulfate 2.5 mg/3 mL (0.083 %) solution for nebulization: Administered ................................. ................................. ................................. ................................. ......... [facility] Consulted: Radha Foster ................................. ................................. ................................. ................................. ......... Disposition: Fulfilled Radha Foster MD [address] [place] [address],[address], [place], [address], TINO GONZALEZ 02/26/2025 18:08:10 03/23/20 25 text/ht ml CRC [...] Pain, Fibromyalgia, Osteoarthritis, Osteoporosis PMH Reviewed at 03/23/2025:32 Allergies Reviewed at 03/23/2025:32 Comments: 74 y.o [...] emergency care. ................................. ................................. ................................. ................................. ......... Residential Collections Note From Jerman Anderson: [facility] visit for female patient complaining of left shoulder pain. Patient is Chinese-speaking and an interpreter and translator was used by phone throughout visit. Patient [...] taken is listed. Patient afebrile. Consulted with [facility] doctor timothy who advised that do patients chronic kidney disease we would not be able to administer NSAIDs or any other pain agents at this time. Patient told that she would have to follow up with primary care or go to the emergency department for any stronger pain medication. Patient education provided. ................................. ................................. ................................. ................................. ......... [facility] Consulted: Len Nguyen ................................. ................................. ................................. ................................. ......... Disposition: Fulfilled Len Nguyen MD [address] [place] [address],[address], [place], [address], [employer] 03/23/2025 22:05:38 OBGyn Episode No OBEpisode recorded.
--- OUTSIDE RECORDS SUMMARY | 2025-07-08 11:09 | XMS_ITS | Encounter Summary ---
Author Organization [employer] Address [address] [facility] [address] [place] [address] Care Team Providers Care Electronic Publications Specialist Name Role Phone Amanda Watkins MD Primary Care Provide r Hiro Ram COUNTER ATTENDANT Unavailable Unavailable Raad Arias PharmD Unavailable [phone] Reason for Visit * Reason Onset Date Comments Med Refill 07/03/2025 Encounter Details Date Type Department Care Team (Late st Contact Info) Description 07/03/2025 Refill [facility] MEDICINE [address] [place] [address] Amanda Watkins MD [address] [place] [address] Type 2 diabetes mellitus with hyperglycemia, with long-term current use of insulin (HCC) Social History Tobacco Use Types Packs/Day Years [...] encounter Miscellaneous Notes * Telephone Encounter - Inez Mari LPN - 07/03/2025 2:52 PM EST Last seen 05/08/25 * Telephone Encounter - Hugh Pablo - 07/03/2025 2:49 PM EST TC from pt requesting medication refill. Medications needing refill : pen needle 32G x 4 mm misc To be sent to: [facility] documented in this encounter Plan of Treatment Upcoming Encounters Date Type Department Care Team (Late st Contact Info) Description 07/09/2025 3:30 PM EST Office Visit [facility] MEDICINE [address] [place] [phone] Amanda Watkins MD [address], [place] [phone] 09/21/2025 10:00 AM EST Telemedicine [facility] MEDICINE [address] [place] [address] Kayley Alanis RN documented as of this [...] their type 2 diabetes No Ann Farley PharmEmily Patient has chronic kidney disease Care Plan Patient has chronic kidney disease No Ann Farley PharmD Weekly blood pressure task Care Plan Weekly blood pressure task No Ann Farley PharmEmily Patient has chronic kidney disease Care Plan Patient has chronic kidney disease No Ann Farley PharmEmily Weekly blood pressure task Care Plan Weekly blood pressure task No Jeff Stanford Weekly blood pressure task Care Plan Weekly blood pressure task No Abdoulaye Jeff Patient has chronic kidney disease Care Plan Patient has chronic kidney disease No Abdoulaye Jeff Patient has chronic kidney disease Care [...] Weekly blood pressure task No Hugh Angel Patient has chronic kidney disease Care Plan Patient has chronic kidney disease No Hugh Angel Patient has chronic kidney disease Care Plan Patient has chronic kidney disease No Hugh Angel documented as of this encounter Visit Diagnoses Diagnosis Type 2 diabetes mellitus with hyperglycemia, with long-term current use of insulin (HCC) documented in this encounter Additional Health Concerns Active [...] 07/03/2025 Patient has chronic kidney disease 07/03/2025 Assessment Noted Time PHQ-9 Depression Total Score: 14 025 2:41 PM EDT documented as of this encounter Care Teams Electronic Publications Specialist Relationship Specialty Start Date End Date Amanda Watkins MD [address] [place] [id number] PCP - General Family Medicine 04/07/19 Hiro Ram FNP [address] [place] [id number] Nurse Practitioner Family Medicine 07/06/23 Raad Arias, TheaD [address] [place] [address] Pharmacist Internal Medicine 10/19/24 [facility] 03/08/25 documented as of this encounter
[2025-07-08 11:13] LABS: Alanine Aminotransferase < 6 U/L (0-31); Albumin Level 3.2 g/dL (3.5-5.0); Alkaline Phosphatase 74 U/L (39-117); Anion Gap 14 (12-20); Aspartate Amino Transferase 16 U/L (5-31); Blood Urea Nitrogen 35 mg/dL (9-16); Calcium 8.7 mg/dL (8.4-10.2); Carbon Dioxide 30 mmol/L (22-29); Chloride 100 mmol/L (96-108); Creatinine Clr Calc Pharmacy 35.3; Estimated Glomerular Filt Rate 29; Lipase 13 U/L (8-78); Magnesium 1.7 mg/dL (1.6-2.6); Potassium 4.3 mmol/L (3.3-5.1); Sodium 140 mmol/L (135-145); Total Protein 6.1 g/dL (6.5-8.0)
[2025-07-08 11:26] LABS: Resp Syncy Virus RNA Qual PCR NEGATIVE (Negative); SARS COV2 PCR INHOUSE NEGATIVE (Negative)
--- NOTE | 2025-07-08 11:51 | ED_ITS ---
HPI - General Adult General Chief complaint: General Medical Stated complaint: LOW ABD PAIN, HIGH HOME BS, 360 PER EMS Time Seen by Provider: 07/08/25 09:55 Source: patient and EMS Mode of arrival: EMS Limitations: other (Patient poor historian) History of Present Illness ED Provider: Sarath HPI narrative: 75-year-old female with a complex medical history including congestive heart failure, sinus bradycardia, atrial flutter (on amiodarone and anticoagulation), hypothyroidism, anemia, obstructive sleep apnea, hypertension, anxiety, agoraphobia, opioid dependence (suppression), and urinary incontinence presents with lower abdominal pain that began this morning. She describes abdominal distension and a sensation that ?just didn?t feel right,? though pain is currently improved. She also notes elevated home blood-glucose readings (?monitor reading high?). Additionally, she reports new right lower-extremity pain radiating into the right groin. She denies any falls or trauma. On arrival to the ED her oxygen saturation was 86% on room air; nasal cannula oxygen was initiated. She uses home oxygen on an as-needed basis but is unsure of the underlying indication. Related Data Home Medications ?Medication ?Instructions ?Recorded ?Confirmed atorvastatin 80 mg tablet 80 mg PO BEDTIME 04/07/21 duloxetine 20 mg capsule,delayed 20 mg PO DAILY 06/13/25 release omeprazole 40 mg capsule,delayed 40 mg PO DAILY@0630 0 03/18/24 06/13/25 release trazodone 150 mg tablet 150 mg PO BEDTIME 10/06/24 1 08/13/24 calcium carbonate (Oyster Shell 500 mg PO BID 12/06/24 06/13/25 Calcium 500) hydroxyzine HCl 25 mg tablet 25 mg PO Q8H PRN anxiety 12/06/24 06/13/25 albuterol sulfate 2.5 mg/3 mL 2.5 mg inhalation Q6H NH N 03/04/25 06/13/25 (0.083 %) solution for nebulization Shortness Of Breat h Or Wheezing albuterol sulfate 90 mcg/actuation 2 puff inhalation Q ID PRN 03/04/25 04/18/25 aerosol inhaler Shortness Of Breath Or Wheez ing aspirin 81 mg tablet,delayed 81 mg PO QAM 04/18/2506/02 release cyclobenzaprine 5 mg tablet 5 mg PO TID 04/18/2504/18 docusate sodium 100 mg capsule 100 mg PO BID 04/18/25 06/13/25 insulin degludec 200 unit/mL (3 64 unit subcut DAILY 0 04/18/25 06/13/25 mL) subcutaneous pen (Tresiba FlexTouch U-200 insulin) melatonin 5 mg tablet 5 mg PO BEDTIME 04/18/2512/31 tirzepatide 5 mg/0.5 mL 5 mg subcut FR 04/18/2504/09 subcutaneous pen injector (Mounjaro) gabapentin 400 mg capsule 400 mg PO TID 06/13/2506/13 tirzepatide 7.5 mg/0.5 mL 7.5 mg subcut QWEEK 06/13/25 06/13/25 subcutaneous pen injector (Mounjaro) Previous Rx's ?Medication ?Instructions ?Recorded apixaban 5 mg tablet (Eliquis) 5 mg PO BID #60 tabs amlodipine 5 mg tablet 5 mg PO DAILY #30 tabs 06/20 torsemide 20 mg tablet 20 mg PO DAILY #30 tabs 06/09 10/02 levothyroxine 100 mcg tablet 100 mcg PO DAILY@0600 #90 tabs 03/07/25 (Synthroid) acetaminophen 325 mg tablet 650 mg (2 x 325 mg) PO Q6H PRN 04/20/25 Pain, Mild 1-3,Fever,Headache 30 days #240 tabs oxycodone 5 mg tablet 5 mg PO Q6H PRN pain 7 days #28 04/20/25 tabs oxycodone-acetaminophen 5 mg-325 1 tab PO Q8H PRN kristin re pain 06/03/25 mg tablet (Percocet) (scale score 7-10) #6 tabs ferrous fumarate 324 mg (106 mg 324 mg PO DAILY #90 ta bs 06/22/25 iron) tablet (Ferrocite) Allergies Allergy/AdvReac Type Severity Reaction Status Date / Time codeine (CODEINE) Allergy Intermediate HALLUCINATI Verified 07/08/25 10:21 ONS Review of Systems 2 Review of Systems: Review of Systems: * Constitutional: No falls or trauma. * Cardiovascular: No specific palpitations reported today. * Respiratory: Hypoxia noted (86% on room air); patient uses PRN home oxygen. * Gastrointestinal: Positive for lower abdominal pain and distension; currently improving. * Endocrine: Reports elevated blood-glucose readings at home. * Musculoskeletal: New right lower-extremity pain with radiation to right groin. Yes all other systems are reviewed and are negative PMFSH Past Medical History Attestation statement: The following information was validated with the patient. Source: old records reviewed and nursing notes reviewed Medical History Left hand pain Septic joint of right shoulder region Septic arthritis Urinary incontinence (HFpEF) heart failure with preserved ejection fraction Anxiety Insomnia CKD (chronic kidney disease) CKD stage 3 due to type 2 diabetes mellitus Leg abrasion Abuse of non-prescription analgesics Type 2 diabetes mellitus with unspecified complications Other and unspecified hyperlipidemia Essential hypertension Atherosclerotic cardiovascular disease Urgency incontinence Osteoporosis Arthritis Asthma Hypertension Fibromyalgia Diabetes mellitus Surgical History H/O tubal ligation History of hernia repair Social History Social History Household Members: Children Household Members Other:: son Housing: Apartment Are you a primary ambulatory care coordinator to a significant other at home: No Do you presently have visiting nurse or other home services: No Alcohol intake: never 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 Patient Tobacco Use Status: Never used Tobacco e-Cigarette/Vaping Use: Never Used Advance Directives: Yes Advance Directives on File: Yes Advance Directives Date on File: 04/07/24 Do you have a plan to hurt others: No Plan service: No Current occupational status: disabled Current occupation: left hand Sexual orientation: Straight/Heterosexual Physical Exam ED Exam Exam: Appearance: Alert.? Oriented X3.? No acute distress.? Head: Normocephalic, atraumatic, no step-offs or deformities Eyes: Pupils equal, round and reactive to light.? ENT: Pharynx normal.? Neck: Normal inspection.? Neck supple.? CVS: Normal heart rate and rhythm.? Pulses normal.? Respiratory: No respiratory distress.? Breath sounds normal.? Abdomen: Soft and nontender.? Skin: Skin warm and dry.? Normal skin color.? Normal skin turgor.? Extremities: No lower extremity edema.? No calf ttp. Global weakness, no focal neuro deficits Neuro: Oriented X 3.? No motor deficit.? No sensory deficit. CN 2-12 intact Vital Signs: Vital Signs - 24 hr 07/08/25 10:18 07/08/25 11:08 07/08/25 13:13 Temperature 98.0 F 97.5 F Pulse Rate 63 60 Respiratory Rate 18 Blood Pressure 120/95 H 130/49 L Pulse Oximetry 86 L 96 96 Oxygen Delivery Method Room Air Nasal Cannula Room Air Oxygen Flow Rate 2 BMI result Body Mass Index 39.5 Course Reevaluation(s) Reevaluation #1: CBC with a baseline normocytic anemia. Chemistry with MARK BUN of 35 creatinine 1.71. Random glucose 307. Time: 11:00 Reevaluation #2: Lactic acid negative however I did cover patient with antibiotics for possible pneumonia based off x-ray. X-ray of the chest with possible focus of atelectasis or infiltrate within the retrocardiac region patient was 86% on room air unclear exactly why or when she uses oxygen. Left lower extremity DVT study negative. CT chest and right lower extremities still pending. Time: 15:52 Reevaluation #3: CT abdomen and pelvis with cholelithiasis she does not have exquisite tenderness to right upper quadrant no pericholecystic fluid, give Palmer's sign on exam low suspicion for cholecystitis she also does not have leukocytosis therefore low suspicion for acute cholecystitis. Time: 16:05 Additional Reevaluation(s): CT chest pending & UA however plan hospital admission. Medications Administered Discontinued Medications Generic Name Dose Route Start Last Admin Trade Name Freq PRN Reason Stop Dose Admin Ceftriaxone Sodium 1 gm/ 50 mls @ 100 mls/hr 07/08/25 13:25 07/08/25 14:34 Sodium Chloride IV 07/08/25 13:54 Infused ONCE ONE Infusion Sodium Chloride 1,000 mls @ 999 mls/hr 07/08/25 14:30 07/08/25 15:44 Ns IV 07/08/25 15:30 Infused .Q1H1M JULIANNE Infusion Morphine Sulfate 4 mg 07/08/25 13:24 07/08/25 14:15 Morphine Sulfate 4 Mg/Ml Cartridge IVPUSH 07/08/25 13:25 4 mg ONCE ONE Administration Protocol Medical Decision Making Medical Decision Making MDM Narrative: 75year-old female with multiple chronic conditions presenting with lower abdominal pain, new right lower-extremity pain, and hypoxia. Problem #1: Lower abdominal pain Assessment: Acute onset this morning with abdominal distension; pain currently improving. Plan: * Labs * Urine * CT abdomen w/ contrast Problem #2: Right lower-extremity pain radiating to right groin Assessment: New onset. Low clinical suspicion for thrombus given therapeutic anticoagulation. Plan: * Unlikely arterial or venous ccusion Problem #3: Hypoxia Assessment: SpO? 86% on room air on arrival; patient placed on nasal cannula. Etiology unclear. Plan: * Maintain nasal cannula oxygen therapy. * Investigate underlying cause; Differential Diagnosis Differential Diagnoses: The differential diagnosis associated with the presentation includes Differential Diagnosis: * Gastrointestinal: Constipation, bowel obstruction, ileus, gastroenteritis * Gynecologic: Ovarian cyst, pelvic inflammatory disease, endometriosis (history of hysterectomy reduces but does not eliminate risk) * Vascular: Mesenteric ischemia, abdominal aortic aneurysm * Metabolic: Diabetic ketoacidosis, electrolyte disturbances * Other: Urinary tract infection, medication side effects * Cardiac: Heart failure exacerbation, arrhythmia, pulmonary edema * Pulmonary: Chronic obstructive pulmonary disease (COPD), pneumonia, pulmonary embolism, sleep apnea * Medication-related: Amiodarone-induced pulmonary toxicity * Other systemic: Anemia, metabolic derangements * Musculoskeletal: Muscle strain, ligament injury, arthritis * Vascular: Deep vein thrombosis (DVT), arterial occlusion (less likely per clinician). Low suspicion * Neuropathic: Sciatica, peripheral neuropathy * Referred pain: From abdominal or pelvic pathology * Other: Medication side effects Admission/Observation Consideration of admission/observation: Escalation of care including admission/observation considered Lab Data [facility] Lab Attestation statement: I reviewed the patient's lab results. 07/08/25 10:40 07/08/25 10:40 Labs: Lab Results 07/08/25 07/08/25 07/08/25 Range/Units 09:59 10:38 10:40 WBC 5.0 (4.8-10.8) X10*3/uL RBC 4.05 L (4.20-5.50) X10*6/uL Hgb 11.2 L (12.0-16.0) g/dl Hct 34.6 L (37.0-47.0) % MCV 85.4 (80.0-98.0) fL MCH 27.7 (27.0-33.0) pg MCHC 32.4 (31.0-35.0) g/dl RDW 14.3 (11.0-16.0) % Plt Count 154 L D (160-400) X10*3/uL MPV 11.1 (9.4-12.3) fL Immature Gran % (Auto) 0.2 (0.0-0.4) % Neut % (Auto) 61.6 (45-73) % Lymph % (Auto) 23.4 (20-40) % [place] % (Auto) 8.8 (2-11) % Eos % (Auto) 5.0 H (0-4) % Baso % (Auto) 1.0 (0-2) % Lymph # (Auto) 1.2 (1.2-4.9) X10*3/uL [place] # (Auto) 0.4 (0.1-1.2) X10*3/uL Eos # (Auto) 0.3 (0.0-0.4) X10*3/uL Baso # (Auto) 0.1 (0.0-0.2) X10*3/uL Abs Immat Gran (auto) 0.01 (0.00-0.03) X10*3/uL Absolute Neuts (auto) 3.1 (2.0-8.3) x10*3/uL Absolute Nucleated RBC 0.000 (0.0-0.012) X10*3/uL Nucleated RBC % (auto) 0.0 (0.0-0.2) /100WBC VBG pH (7.32-7.43) VBG pCO2 mmHg VBG pO2 mmHg VBG HCO3 (22-26) mmol/L VBG O2 Saturation % VBG Base Excess mmol/L Sodium 140 (135-145) mmol/L Potassium 4.3 (3.3-5.1) mmol/L Chloride 100 (96-108) mmol/L Carbon Dioxide 30 H (22-29) mmol/L Anion Gap 14 (12-20) BUN 35 H (9-16) mg/dL Creatinine 1.71 H (0.5-1.4) mg/dL Estim Creat Clear Calc 35.3 Estimated GFR 29 POC Glucose 290 H (60-115) mg/dL Random Glucose 307 H (60-115) mg/dL Lactic Acid (0.5-2.0) mmol/L Calcium 8.7 (8.4-10.2) mg/dL Magnesium 1.7 (1.6-2.6) mg/dL Total Bilirubin 0.3 (0.0-1.0) mg/dL AST 16 (5-31) U/L ALT < 6 (0-31) U/L Alkaline Phosphatase 74 (39-117) U/L Total Protein 6.1 L (6.5-8.0) g/dL Albumin 3.2 L (3.5-5.0) g/dL Lipase 13 (8-78) U/L Beta-Hydroxybutyrate 0.09 (0.02-0.27) mmol/L Influenza Type A (PCR) NEGATIVE (Negative) Influenza Type B (PCR) NEGATIVE (Negative) RSV RNA Qual (PCR) NEGATIVE (Negative) SARS-CoV-2 RNA (RT-PCR) NEGATIVE (Negative) 07/08/25 07/08/25 Range/Units 10:48 13:54 WBC (4.8-10.8) X10*3/uL RBC (4.20-5.50) X10*6/uL Hgb (12.0-16.0) g/dl Hct (37.0-47.0) % MCV (80.0-98.0) fL MCH (27.0-33.0) pg MCHC (31.0-35.0) g/dl RDW (11.0-16.0) % Plt Count (160-400) X10*3/uL MPV (9.4-12.3) fL Immature Gran % (Auto) (0.0-0.4) % Neut % (Auto) (45-73) % Lymph % (Auto) (20-40) % [place] % (Auto) (2-11) % Eos % (Auto) (0-4) % Baso % (Auto) (0-2) % Lymph # (Auto) (1.2-4.9) X10*3/uL [place] # (Auto) (0.1-1.2) X10*3/uL Eos # (Auto) (0.0-0.4) X10*3/uL Baso # (Auto) (0.0-0.2) X10*3/uL Abs Immat Gran (auto) (0.00-0.03) X10*3/uL Absolute Neuts (auto) (2.0-8.3) x10*3/uL Absolute Nucleated RBC (0.0-0.012) X10*3/uL Nucleated RBC % (auto) (0.0-0.2) /100WBC VBG pH 7.42 (7.32-7.43) VBG pCO2 54 mmHg VBG pO2 79 mmHg VBG HCO3 35 H (22-26) mmol/L VBG O2 Saturation 95.0 % VBG Base Excess 9.2 mmol/L Sodium (135-145) mmol/L Potassium (3.3-5.1) mmol/L Chloride (96-108) mmol/L Carbon Dioxide (22-29) mmol/L Anion Gap (12-20) BUN (9-16) mg/dL Creatinine (0.5-1.4) mg/dL Estim Creat Clear Calc Estimated GFR POC Glucose (60-115) mg/dL Random Glucose (60-115) mg/dL Lactic Acid 1.5 (0.5-2.0) mmol/L Calcium (8.4-10.2) mg/dL Magnesium (1.6-2.6) mg/dL Total Bilirubin (0.0-1.0) mg/dL AST (5-31) U/L ALT (0-31) U/L Alkaline Phosphatase (39-117) U/L Total Protein (6.5-8.0) g/dL Albumin (3.5-5.0) g/dL Lipase (8-78) U/L Beta-Hydroxybutyrate (0.02-0.27) mmol/L Influenza Type A (PCR) (Negative) Influenza Type B (PCR) (Negative) RSV RNA Qual (PCR) (Negative) SARS-CoV-2 RNA (RT-PCR) (Negative) Independent Interpretation I performed an independent interpretation of an: EKG, Plain X-Ray, Ultrasound and CT Scan Radiology Impression Discussion of test interpretation with radiology: I have reviewed the radiologist's reading. Independent Historian Clinical information obtained from an independent historian. History obtained from or confirmed by: EMS External Record Review External record reviewed: Inpatient record, Office record, Outpatient record, Prior outpatient labs, Prior outpatient radiology, Primary care record and Outside ED record Critical Care Time Critical Care Time Critical Care Time: Yes Total Critical Care Time: 35 Attestation: I attest to this time spent taking care of the patient, obtaining history, physical, reviewing labs, imaging, treatment of patients condition +/- specialist/hospitalist consult +/- procedure Discharge Plan Discharge Clinical Impression: Pneumonia, Hypoxia, Leg pain, right, Cholelithiasis Patient Disposition: Admitted As Inpatient Print Language: Lebanese
--- NOTE | 2025-07-08 13:20 | PC.NURSE ---
Pt yelling out multiple times, when social service agency director to bedside pt stating she does not have pain initially that she is more anxious. Pt then stating pain to right leg. Provider aware.
--- NOTE | 2025-07-08 16:10 | ECG_ITS ---
Test Reason : SOB Blood Pressure : */* mmHG Vent. Rate : 58 BPM Atrial Rate : 58 BPM P-R Int : 172 ms QRS Dur : 96 ms QT Int : 438 ms P-R-T Axes : 32 -25 17 degrees QTcB Int : 429 ms Sinus bradycardia Incomplete right bundle branch block Possible Anterolateral infarct , age undetermined Abnormal ECG When compared with ECG of 12-Jun-2025 14:46, No significant change was found Referred By: Riaz Mccall Electronically Signed By: JUANPABLO BOSS
--- NOTE | 2025-07-08 16:30 | PM.IMHP ---
History of Present Illness Date of Service: 07/08/25 Chief Complaint: leg pain 75yo F with?paroxysmal AFib on Eliquis s/p cardioversion 06/2023, CAD, HFpEF, HTN, CKD 3, insulin-dependent type 2 diabetes, asthma, hypothyroidism, depression, and anxiety who presents to the ED with several days of worsening leg swelling and pain. Endorses dry cough and some wheezing. Notes orthopnea and exertional dyspnea. Reports BGs at home in the 300s. Thinks she has gained weight but doesn't weigh herself every day. No chest pain. No fever. Compliant with Eliquis. Noted in ED to be hypoxic to 86% on RA. Retrocardiac infiltrate noted on CXR. SCr up to 1.71 from baseline of 1.3. Pt given ceftriaxone and IV NS. This history was taken in Italian from the patient. Review of Systems Review of Systems: Yes all other systems are reviewed and are negative [facility] Medical History Left hand pain Septic joint of right shoulder region Septic arthritis Urinary incontinence (HFpEF) heart failure with preserved ejection fraction Anxiety Insomnia CKD (chronic kidney disease) CKD stage 3 due to type 2 diabetes mellitus Leg abrasion Abuse of non-prescription analgesics Type 2 diabetes mellitus with unspecified complications Other and unspecified hyperlipidemia Essential hypertension Atherosclerotic cardiovascular disease Urgency incontinence Osteoporosis Arthritis Asthma Hypertension Fibromyalgia Diabetes mellitus Surgical History H/O tubal ligation History of hernia repair Social History Household Members: Family Household Members Other:: son Housing: Apartment Are you a primary youth care professional to a significant other at home: No Do you presently have visiting nurse or other home services: Yes Unable to assess alcohol history related to: Unknown Alcohol intake: never 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 If so, by whom?: No Do you feel safe in your current relationship?: No Current Relationship Is there a partner from a previous relationship who is making you feel unsafe now?: No Are you made to feel afraid or neglected: No Spiritual Healthcare Practices: [facility] Advance Directives: Yes Advance Directives Information Provided: No Advance Directives on File: Yes Advance Directives Date on File: 04/07/24 Do you have a plan to hurt others: No Plan Recently lost weight without trying: No Eating poorly because of decreased appetite: No Nutrition Risks: No Nutritional Risk Patient : No : No Poor oral hygiene: No service: No Current occupational status: disabled Current occupation: left hand Sexual orientation: Straight/Heterosexual Meds Allergies Allergy/AdvReac Type Severity Reaction Status Date / Time codeine (CODEINE) Allergy Intermediate HALLUCINATI Verified 07/08/25 10:21 ONS Active Medications: Current Medications Acetaminophen (Acetaminophen 325 Mg Tablet) 650 mg PO Q6H PRN PRN Reason: Pain, Mild 1-3,fever,headache Apixaban (Apixaban 5 Mg Tablet) 5 mg PO BID JULIANNE Calcium Carbonate (Calcium Carbonate 750 Mg Tab.Chew) 750 mg PO Q4H PRN PRN Reason: Heartburn Dextrose (Dextrose 50 % 25 Gm/50 Ml Syringe) 25 gm IVPUSH Q15M PRN; Protocol PRN Reason: per Hypoglycemia Standing Ord. Doxycycline Monohydrate (Doxycycline Monohydrate 100 Mg Capsule) 100 mg PO Q12H [facility] Glucose (Glucose Gel 15 Gm Gel..Gram.) 15 gm PO Q15M PRN; Protocol PRN Reason: per Hypoglycemia Standing Ord. Ceftriaxone Sodium 1 gm/ (Sodium Chloride) 50 mls @ 100 mls/hr IV Q24H [facility] Insulin Glargine (Insulin Glargine,Hum.Rec.Anlog 100 Unit/Ml 10 Ml Vial) 32 unit SUBCUT BEDTIME JULIANNE Insulin Human Lispro (Insulin Lispro 100 Unit/Ml 3 Ml Vial) 0 unit SUBCUT QIDACHS [facility]; Protocol Magnesium Hydroxide (Milk Of Magnesia 30 Ml Oral.Susp) 30 ml PO DAILY PRN PRN Reason: Constipation Melatonin (Melatonin 3 Mg Tablet) 6 mg PO BEDTIME PRN PRN Reason: Insomnia Ondansetron HCl (Ondansetron Hcl 4 Mg/2 Ml Vial) 4 mg IVPUSH Q8H PRN PRN Reason: Nausea and Vomiting Sodium Chloride (0.9 % Sodium Chloride Flush 3 Ml Syringe) 3 [facility] Medications ?Medication ?Instructions ?Recorded ?Confirmed ?Last Taken ?Type atorvastatin 80 mg tablet 80 mg PO BEDTIME 04/07/21 07/08/25 10/05/24 History duloxetine 20 mg capsule,delayed 20 mg PO DAILY 03/18/24 07/08/25 04/05/24 History release omeprazole 40 mg capsule,delayed 40 mg PO DAILY@0630 03/18/24 07/08/25 10/06/24 History release trazodone 150 mg tablet 150 mg PO BEDTIME 10/06/24 07/08/25 10/05/24 History calcium carbonate (Oyster Shell 500 mg PO BID 12/06/24 07/08/25 Unknown History Calcium 500) hydroxyzine HCl 25 mg tablet 25 mg PO Q8H PRN anxiety 12/06/24 07/08/25 Unknown History albuterol sulfate 2.5 mg/3 mL 2.5 mg inhalation Q6H PRN 03/04/25 07/08/25 Unknown History (0.083 %) solution for nebulization Shortness Of Breath Or Wheezing albuterol sulfate 90 mcg/actuation 2 puff inhalation QID PRN 03/04/25 07/08/25 Unknown History aerosol inhaler Shortness Of Breath Or Wheezing aspirin 81 mg tablet,delayed 81 mg PO DAILY 04/18/25 07/08/25 04/04/25 History release cyclobenzaprine 5 mg tablet 5 mg PO TID PRN muscle spasms 04/18/25 07/08/25 Unknown History docusate sodium 100 mg capsule 100 mg PO BID 04/18/25 07/08/25 Unknown History insulin degludec 200 unit/mL (3 64 unit subcut DAILY 04/18/25 07/08/25 Unknown History mL) subcutaneous pen (Tresiba FlexTouch U-200 insulin) melatonin 5 mg tablet 5 mg PO BEDTIME 04/18/25 07/08/25 Unknown History gabapentin 400 mg capsule 400 mg PO TID 06/13/25 07/08/25 Unknown History tirzepatide 7.5 mg/0.5 mL 7.5 mg subcut FR@0900 06/13/25 07/08/25 Unknown History subcutaneous pen injector (Lamont) ketoconazole 2 % shampoo 1 appl topical MOTH@0900 07/08/25 07/08/25 Unknown History Physical Exam Vital Signs and Narrative: Vital Signs: Last Vital Signs Temp 97.5 F 07/08/25 13:13 Pulse 56 07/08/25 16:22 Resp 16 07/08/25 16:22 BP 147/55 H 07/08/25 16:22 Pulse Ox 99 07/08/25 16:22 O2 Del Method Nasal Cannula 07/08/25 16:22 O2 Flow Rate 2 07/08/25 16:22 BMI result Body Mass Index 39.5 Gen: in no acute distress HEENT: sclera anicteric, moist mucus membranes Neck: supple, JVD present Lungs: diminished Heart: regular rate and rhythm, no murmurs Abd: soft, non-tender, non-distended Ext: 2+ pitting bilateral leg edema Skin: warm/well-perfused Neuro: alert and oriented x3, no focal findings Psych: appropriate affect Results Labs 07/09/25 08:16 07/09/25 08:16 Labs: Laboratory Results - last 24 hr 07/08/25 07/08/25 07/08/25 09:59 10:38 10:40 MCV 85.4 MCH 27.7 MCHC 32.4 RDW 14.3 Plt Count 154 L D MPV 11.1 Immature Gran % (Auto) 0.2 Neut % (Auto) 61.6 Lymph % (Auto) 23.4 [place]oke % (Auto) 8.8 Eos % (Auto) 5.0 H Baso % (Auto) 1.0 Lymph # (Auto) 1.2 [place] # (Auto) 0.4 Eos # (Auto) 0.3 Baso # (Auto) 0.1 Abs Immat Gran (auto) 0.01 Absolute Neuts (auto) 3.1 Absolute Nucleated RBC 0.000 Nucleated RBC % (auto) 0.0 VBG pH VBG pCO2 VBG pO2 VBG HCO3 VBG O2 Saturation VBG Base Excess Anion Gap 14 Estim Creat Clear Calc 35.3 Estimated GFR 29 POC Glucose 290 H Random Glucose 307 H Lactic Acid Calcium 8.7 Magnesium 1.7 Total Bilirubin 0.3 AST 16 ALT < 6 Alkaline Phosphatase 74 Total Protein 6.1 L Albumin 3.2 L Lipase 13 Beta-Hydroxybutyrate 0.09 Influenza Type A (PCR) NEGATIVE Influenza Type B (PCR) NEGATIVE RSV RNA Qual (PCR) NEGATIVE SARS-CoV-2 RNA (RT-PCR) NEGATIVE 07/08/25 07/08/25 10:48 13:54 MCV MCH MCHC RDW Plt Count MPV Immature Gran % (Auto) Neut % (Auto) Lymph % (Auto) [place] % (Auto) Eos % (Auto) Baso % (Auto) Lymph # (Auto) [place] # (Auto) Eos # (Auto) Baso # (Auto) Abs Immat Gran (auto) Absolute Neuts (auto) Absolute Nucleated RBC Nucleated RBC % (auto) VBG pH 7.42 VBG pCO2 54 VBG pO2 79 VBG HCO3 35 H VBG O2 Saturation 95.0 VBG Base Excess 9.2 Anion Gap Estim Creat Clear Calc Estimated GFR POC Glucose Random Glucose Lactic Acid 1.5 Calcium Magnesium Total Bilirubin AST ALT Alkaline Phosphatase Total Protein Albumin Lipase Beta-Hydroxybutyrate Influenza Type A (PCR) Influenza Type B (PCR) RSV RNA Qual (PCR) SARS-CoV-2 RNA (RT-PCR) Imaging Comment: CT chest 07/08 1. Mild ground-glass opacities within the bilateral lungs most likely secondary to atelectasis. 2. Cardiomegaly. Small amount of pericardial fluid. Assessment and Plan (1) Acute on chronic heart failure with preserved ejection fraction (HFpEF): Status: Acute Plan 75yo F with?paroxysmal AFib on Eliquis s/p cardioversion 06/2023, CAD, HFpEF, HTN, CKD 3, insulin-dependent type 2 diabetes, asthma, hypothyroidism, depression, and anxiety presenting with leg swelling and cough, found to have MARK and ground-glass infiltrate, likely pulmonary edema less likely pneumonia. MARK/CKD3 - possibly cardiorenal; admit to telemetry, diurese and monitor SCr acute/chronic HFpEF - strict I/O, IV furosemide, monitor lytes + NT-pro-BNP, update TTE, continue amlodipine acute hypoxic respiratory failure ground-glass infiltrate - suspect from CHF but will cover with ceftriaxone + doxycycline pending PCT trend + blood cultures - supplemental O2, wean as tolerated DM2 with hyperglycemia - basal-bolus insulin pAF - apixaban; not on rate control agent CAD - atorvastatin VTE prophylaxis: apixaban dispo: dispo code status: full I anticipate that the patient will stay at least 2 midnights as an inpatient in the hospital due to the above reasons. It is neither reasonable nor safe to care for them in a less acute setting. Quality Stroke Does the patient have a stroke diagnosis?: No VTE Prior VTE?: No VTE Risk Level:: Medical - moderate - high VTE Device Contraindication: N/A - Device Ordered VTE Drug Contraindication: N/A - Med Ordered
--- NOTE | 2025-07-08 16:38 | HO.NURTONUR ---
75 year old female presented to ED for concerns of right leg pain/right lower abd pain. SPO2 found to be in mid-high 80s. Pt with oxygen at home sometimes uses it . Pt awake and alert. Breathing equal and unlabored, diminished lung sounds at bases. Lower leg edema noted, worse per daughter. Denies CP/SOB. Per pt daughter, pt more confused lately not always making sense. Came in wearing brief, cleaned up and PureWick placed. 20G to right AC. Vitals stable on 2L NC. Diabetic diet order in.
--- NOTE | 2025-07-08 16:43 | PHA.MEDREC ---
Pharmacy Consult ? Medication Reconciliation Pharmacy has completed the medication reconciliation.
[2025-07-08 16:54] LABS: Glucose, Whole Blood 190 mg/dL (60-115)
[2025-07-08 17:03] LABS: Procalcitonin 0.04 ng/mL
[2025-07-08 17:18] LABS: NT Pro B Type Natriuretic Pept 309.8 pg/mL (<300)
--- NOTE | 2025-07-08 17:59 | PC.NURSE ---
Pt sitting up eating dinner at this time
[2025-07-08] MEDS: Furosemide 40 MG/4 ML VIAL IVPUSH (18:11)
[2025-07-08 19:24] LABS: Appearance Urine Clear; Glucose Urine UA 250 mg/dL (Negative); PH 5.0 (5.0-9.0); Specific Gravity - Urine 1.010 (1.005-1.025)
[2025-07-08 21:02] LABS: Glucose, Whole Blood 196 mg/dL (60-115)
[2025-07-08] MEDS: Insulin Glargine,Hum.rec.anlog 100 UNIT/ML 10 ML VIAL 32 UNIT SUBCUT (21:04)
[2025-07-09] VITALS (8 sets, daily range): BP systolic 141–166; BP diastolic 62–81; PULSE 57–67; RESP 16–20; TEMP 36.2–36.6; O2SAT 91–100
[2025-07-09] MEDS: 0.9 % Sodium Chloride Flush 3 ML SYRINGE IVFLUSH ×3 (05:08→16:55)
--- NOTE | 2025-07-09 07:00 | CA_ITS ---
Transthoracic Echocardiogram Patient (Last, First, Middle): Mary Lou Godwin Z Gender: F Date of : 1950 Age: 75 Procedure Date: 07/09/2025 Procedure Type: Transthoracic Echocardiogram Location: [facility] [place] Height: 167.64 cm Weight: 108.86 kg BSA: 2.16 m2 Heart Rate: bpm BP: 152 / 66 mmHg Area Plant Manager: SUGAR Referring MD: Wyatt Sheffield MD Symptoms: HFpEF Study Quality: Fair, contrast ECG Rhythm: Sinus Conclusions: - The left ventricular systolic function is normal. The calculated ejection fraction is 67% by biplane method. - There is moderately increased left ventricular wall thickness. - Evidence suggests grade II (moderate) diastolic dysfunction. - There is moderate calcification of the aortic valve. There is mild aortic valve stenosis. - Calcified mitral apparatus but no significant dysfunction. Findings Procedure Information Contrast agent, definity, is being given per protocol without apparent complications. Left Ventricle Normal left ventricular cavity size. There is moderately increased left ventricular wall thickness. The left ventricular systolic function is normal. The calculated ejection fraction is 67% by biplane method. There is no evidence of regional wall motion abnormalities. Evidence suggests grade II (moderate) diastolic dysfunction. Right Ventricle Normal right ventricular cavity size and systolic function. Atria Both atria are normal in size. Aortic Valve There is moderate calcification of the aortic valve. There is mild aortic valve stenosis. There is no aortic valve regurgitation. Mitral Valve There is mild mitral annular calcification. There is no mitral valve regurgitation. There is no mitral valve stenosis. Mitral chordal calcification. Pulmonic Valve The pulmonic valve is likely normal. Tricuspid Valve There is trace tricuspid valve regurgitation. There is no evidence of pulmonary hypertension. Great Vessels The asc aorta is normal in size. Small plaque is seen in the sino tubular ridge. Venous The inferior vena cava is normal in size and collapses greater than 50% with inspiration. Pericardium/Pleural There is no evidence of pericardial effusion. Prior Study Comparison No significant change compared to prior study dated: 06/12/2024. Measurements 2D Linear Measurements IVSd: 1.56 0.6-0.9/0.6-1.0 cm LVIDd: 4.85 3.9-5.3/4.2-5.9 cm LVIDd Index: 2.25 2.4-3.2/2.2-3.1 cm/m2 LVIDs: 3.44 2.0-3.6 cm LVPWd: 1.51 0.7-1.1 cm LA Diam: 4.60 2.7-3.8/3.0-4.0 cm LAIDs Index: 2.13 1.5-2.3 cm/m2 LV Mass: 398.02 67-162/88-224 g LV Mass Index: 184.27 43-95/49-115 g/m2 LVOT Diam: 2.20 3.0+(-)1.3 cm 2D Systolic Function EF 4C: 66.80 >55% EF 2C: 68.70 >55% EF BiP: 67.40 >55% Mitral Valve MV VTI: 0.35 MV Pk Hugh: 1.14 MV Mn Hugh: 0.65 MV Pk Grad: 5.00 MV Mn Grad: 2.00 MV Pk E: 1.08 MV PK A: 0.61 MV Decel Time: 220.00 E/A: 1.80 E'Lateral: 8.92 E'Medial: 8.59 E/E' Med: 12.60 E/E' Lat: 12.10 PHT: 65.00 MVA PHT: 3.38 MVA Continuity: 2.41 Decel [place]: 4.89 Aortic Valve AoV Pk Hugh: 2.35 AoV Mn Hugh: 1.76 AoV VTI: 0.49 AoV Pk Grad: 22.00 Aov Mn Grad: 14.00 MICKY Cont.VTI: 1.72 LVOT LVOT Pk Hugh: 0.90 LVOT Mn Hugh: 0.67 LVOT VTI: 0.22 LVOT Pk Grad: 3.00 LVOT Mn Grad: 2.00 LVOT Diam: 2.20 LVOT Area: 3.80 Diastolic Function MV Pk E: 1.08 MV Pk A: 0.61 E/A: 1.80 E'Medial: 8.59 E/E' Med: 12.60 E' Laterial: 8.92 E/E' Lat: 12.10 Right Ventricle TAPSE (mm): 24.70 TVS' Hugh: 13.20 Tricuspid Valve TR Pk Hugh: 2.47 TR Pk Grad: 24.00 RA Press: 3.00 RVSP: 27.00 Great Vessels Aorta Sinus of Valsalva: 3.78 2.0-3.[address] [place]: 3.06 1.7-3.4 cm Ao Asc: 3.70 2.1-3.4 cm Updated in Other Vendor System with Status of Final Glenn Adames MD electronically signed on 07/09/2025 1:32:27 PM with status of Final
[2025-07-09 07:12] LABS: Glucose, Whole Blood 263 mg/dL (60-115)
[2025-07-09 08:32] LABS: Hematocrit 36.5 % (37.0-47.0); Hemoglobin 11.6 g/dl (12.0-16.0); Mean Corpuscular HGB Conc 31.8 g/dl (31.0-35.0); Mean Corpuscular Hemoglobin 27.8 pg (27.0-33.0); Mean Corpuscular Volume 87.3 fL (80.0-98.0); NRBC Abs Auto 0.000 X10*3/uL (0.0-0.012); NRBC Pct Auto 0.0 /100WBC (0.0-0.2); Platelet Count 164 X10*3/uL (160-400); Red Blood Count 4.18 X10*6/uL (4.20-5.50); White Blood Count 4.9 X10*3/uL (4.8-10.8)
[2025-07-09 08:49] LABS: Anion Gap 13 (12-20); Blood Urea Nitrogen 30 mg/dL (9-16); Calcium 8.8 mg/dL (8.4-10.2); Carbon Dioxide 33 mmol/L (22-29); Chloride 99 mmol/L (96-108); Creatinine Clr Calc Pharmacy 41.6; Estimated Glomerular Filt Rate 35; Potassium 4.5 mmol/L (3.3-5.1); Sodium 140 mmol/L (135-145)
[2025-07-09] MEDS: Furosemide 40 MG/4 ML VIAL IVPUSH ×2 (08:54→16:54)
[2025-07-09 08:57] LABS: NT Pro B Type Natriuretic Pept 247.0 pg/mL (<300)
[2025-07-09] MEDS: oxyCODONE HCl Immed Release 5 MG TABLET PO ×2 (10:00→18:20)
[2025-07-09 11:21] LABS: Glucose, Whole Blood 280 mg/dL (60-115)
[2025-07-09 11:46] LABS: Procalcitonin 0.03 ng/mL
--- NOTE | 2025-07-09 12:34 | MHC.CM.PN ---
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 She has a visiting nurse that comes on and , she does not know from which agency. For DME, she has a walker, a rollator and home O2. HCP is on file and confirmed: Anatoliy. PCP is confirmed: Amanda Myers MD. Transportation home at [place] is by her dtr, DCP: home, resume services. CM to follow for DC needs.
--- NOTE | 2025-07-09 14:08 | HO.PM.IMPN ---
Subjective Subjective Date of Service: 07/09/25 Interval History: This history was taken in [place] from the patient. Minimal cough Legs less swollen Exertional dyspnea Review of Systems Review of Systems: Yes all other systems are reviewed and are negative Physical Exam Vital Signs: Vital Signs: Last Vital Signs Temp 97.9 F 07/09/25 11:10 Pulse 66 07/09/25 11:10 Resp 20 07/09/25 11:10 BP 150/68 H 07/09/25 11:10 Pulse Ox 97 07/09/25 11:10 O2 Del Method Nasal Cannula 07/09/25 11:10 O2 Flow Rate 1 07/09/25 11:10 BMI result Body Mass Index 38.9 Gen: in no acute distress HEENT: sclera anicteric, moist mucus membranes Neck: supple Lungs: diminished Heart: regular rate and rhythm, no murmurs Abd: soft, non-tender, non-distended Ext: no edema Skin: warm/well-perfused Neuro: alert and oriented x3, no focal findings Psych: appropriate affect Objective Data Active Medications Acetaminophen (Acetaminophen 325 Mg Tablet) 650 mg PO Q6H PRN PRN Reason: Pain, Mild 1-3,fever,headache Last Admin: 07/09/25 08:38 Dose: 650 mg Documented By: GONZALO Albuterol Sulfate (Albuterol Sulfate (0.083%) 2.5 Mg/3 Ml Vial.Neb) 2.5 mg INHALE Q6H PRN PRN Reason: Shortness Of Breath Or Wheezing Amlodipine Besylate (Amlodipine Besylate 5 Mg Tablet) 5 mg PO DAILY [facility]; Protocol Last Admin: 07/09/25 10:00 Dose: 5 mg Documented By: GONZALO Apixaban (Apixaban 5 Mg Tablet) 5 mg PO BID [facility] Last Admin: 07/09/25 08:35 Dose: 5 mg Documented By: GONZALO Atorvastatin Calcium (Atorvastatin Calcium 80 Mg Tablet) 80 mg PO BEDTIME [facility] Calcium Carbonate (Calcium Carbonate 750 Mg Tab.Chew) 750 mg PO Q4H PRN PRN Reason: Heartburn Cyclobenzaprine HCl (Cyclobenzaprine Hcl 5 Mg Tablet) 5 mg PO TID PRN PRN Reason: muscle spasms Dextrose (Dextrose 50 % 25 Gm/50 Ml Syringe) 25 gm IVPUSH Q15M PRN; Protocol PRN Reason: per Hypoglycemia Standing Ord. Diphenhydramine HCl (Diphenhydramine Hcl 25 Mg Capsule) 25 mg PO Q4H PRN PRN Reason: Itching Last Admin: 07/09/25 08:35 Dose: 25 mg Documented By: GONZALO Duloxetine HCl (Duloxetine Hcl 20 Mg Capsule.) 20 mg PO DAILY [facility] Last Admin: 07/09/25 10:00 Dose: 20 mg Documented By: GONZALO Ferrous Sulfate (Ferrous Sulfate 324 Mg Tablet.) 324 mg PO DAILY [facility] Fluconazole (Fluconazole 150 Mg Tablet) 150 mg PO Q72H [facility] Stop: 07/12/25 11:01 Last Admin: 07/09/25 11:50 Dose: 150 mg Documented By: GONZALO Furosemide (Furosemide 40 Mg/4 Ml Vial) 40 mg IVPUSH BID@0900,1800 [facility]; Protocol Last Admin: 07/09/25 08:54 Dose: 40 mg Documented By: GONZALO Gabapentin (Gabapentin 400 Mg Capsule) 400 mg PO TID [facility] Last Admin: 07/09/25 10:00 Dose: 400 mg Documented By: GONZALO Glucose (Glucose Gel 15 Gm Gel..Gram.) 15 gm PO Q15M PRN; Protocol PRN Reason: per Hypoglycemia Standing Ord. Insulin Glargine (Insulin Glargine,Hum.Rec.Anlog 100 Unit/Ml 10 Ml Vial) 32 unit SUBCUT BEDTIME [facility] Last Admin: 07/08/25 21:04 Dose: 32 unit Documented By: DELISK Insulin Human Lispro (Insulin Lispro 100 Unit/Ml 3 Ml Vial) 0 unit SUBCUT QIDACHS [facility]; Protocol Last Admin: 07/09/25 11:50 Dose: 6 unit Documented By: GONZALO Comments: Levothyroxine Sodium (Levothyroxine Sodium 100 Mcg Tablet) 100 mcg PO DAILY@0600 [facility] Last Admin: 07/09/25 05:03 Dose: 100 mcg Documented By: MATEO Magnesium Hydroxide (Milk Of Magnesia 30 Ml Oral.Susp) 30 ml PO DAILY PRN PRN Reason: Constipation Melatonin (Melatonin 3 Mg Tablet) 6 mg PO BEDTIME PRN PRN Reason: Insomnia Omeprazole (Omeprazole 40 Mg Capsule.) 40 mg PO DAILY@0630 [facility] Ondansetron HCl (Ondansetron Hcl 4 Mg/2 Ml Vial) 4 mg IVPUSH Q8H PRN PRN Reason: Nausea and Vomiting Oxycodone HCl (Oxycodone Hcl Immed Release 5 Mg Tablet) 5 mg PO Q8H PRN PRN Reason: severe pain (scale score 7-10) Last Admin: 07/09/25 10:00 Dose: 5 mg Documented By: GONZALO Sodium Chloride (0.9 % Sodium Chloride Flush 3 Ml Syringe) 3 ml IVFLUSH QSHIFT [facility] Last Admin: 07/09/25 08:53 Dose: 3 ml Documented By: GONZALO Trazodone HCl (Trazodone Hcl 50 Mg Tablet) 150 mg PO BEDTIME [facility] Labs 07/09/25 08:16 07/09/25 08:16 Labs: Laboratory Results - last 24 hr 07/08/25 07/08/25 07/08/25 10:40 13:54 16:47 MCV MCH MCHC RDW Plt Count MPV Absolute Nucleated RBC Nucleated RBC % (auto) Anion Gap Estim Creat Clear Calc Estimated GFR POC Glucose Random Glucose Lactic Acid 1.5 Calcium NT-Pro-B Natriuret Pep 309.8 H Procalcitonin 0.04 Urine Color Urine Appearance Urine pH Ur Specific [place] Urine Protein Urine Glucose (UA) Urine Ketones Urine Blood Urine Nitrite Ur Leukocyte Esterase Ur Random Sodium Urine Creatinine 07/08/25 07/08/25 07/08/25 16:51 19:05 20:58 MCV MCH MCHC RDW Plt Count MPV Absolute Nucleated RBC Nucleated RBC % (auto) Anion Gap Estim Creat Clear Calc Estimated GFR POC Glucose 190 H 196 H Random Glucose Lactic Acid Calcium NT-Pro-B Natriuret Pep Procalcitonin Urine Color Yellow Urine Appearance Clear Urine pH 5.0 Ur Specific [place] 1.010 Urine Protein Negative Urine Glucose (UA) 250 H Urine Ketones Negative Urine Blood Negative Urine Nitrite Negative Ur Leukocyte Esterase Negative Ur Random Sodium 96.0 Urine Creatinine 40.74 07/09/25 07/09/25 07/09/25 07:07 08:16 11:17 MCV 87.3 MCH 27.8 MCHC 31.8 RDW 14.4 Plt Count 164 MPV 11.4 Absolute Nucleated RBC 0.000 Nucleated RBC % (auto) 0.0 Anion Gap 13 Estim Creat Clear Calc 41.6 Estimated GFR 35 POC Glucose 263 H 280 H Random Glucose 270 H Lactic Acid Calcium 8.8 NT-Pro-B Natriuret Pep 247.0 Procalcitonin 0.03 Urine Color Urine Appearance Urine pH Ur Specific [place] Urine Protein Urine Glucose (UA) Urine Ketones Urine Blood Urine Nitrite Ur Leukocyte Esterase Ur Random Sodium Urine Creatinine Assessment and Plan (1) CHF (congestive heart failure): Status: Acute Plan d2 75yo F with?paroxysmal AFib on Eliquis s/p cardioversion 06/2023, CAD, HFpEF, HTN, CKD 3, insulin-dependent type 2 diabetes, asthma, hypothyroidism, depression, and anxiety presenting with leg swelling and cough, found to have MARK and ground-glass infiltrate, likely pulmonary edema less likely pneumonia. MARK/CKD3 - improving with diuresis, so likely cardiorenal; continue to diurese and monitor SCr acute/chronic HFpEF - strict I/O, IV furosemide, monitor lytes + NT-pro-BNP - TTE 07/09: - The left ventricular systolic function is normal. The calculated ejection fraction is 67% by biplane method. - There is moderately increased left ventricular wall thickness. - Evidence suggests grade II (moderate) diastolic dysfunction. - There is moderate calcification of the aortic valve. There is mild aortic valve stenosis. - Calcified mitral apparatus but no significant dysfunction. - continue amlodipine acute hypoxic respiratory failure ground-glass infiltrate - suspect from CHF rather than PNA; will d/c ceftriaxone and doxycycline as PCT is low - supplemental O2, wean as tolerated DM2 with hyperglycemia: basal-bolus insulin pAF: apixaban; not on rate control agent CAD: atorvastatin VTE prophylaxis: apixaban dispo: home with family support per PT In my clinical judgment, the patient requires continued inpatient hospitalization for the following reasons: IV diuresis, MARK Total time managing care of this patient today: 35 minutes. Quality Stroke Does the patient have a stroke diagnosis?: No VTE Prior VTE?: No VTE Risk Level:: Medical - moderate - high VTE Device Contraindication: N/A - Device Ordered VTE Drug Contraindication: N/A - Med Ordered
[2025-07-09 16:08] LABS: Glucose, Whole Blood 248 mg/dL (60-115)
[2025-07-09 20:58] LABS: Glucose, Whole Blood 245 mg/dL (60-115)
[2025-07-09] MEDS: Insulin Glargine,Hum.rec.anlog 100 UNIT/ML 10 ML VIAL 32 UNIT SUBCUT (21:00)
[2025-07-10] VITALS: BP 128/58; PULSE 62; RESP 18; TEMP 36.3; O2SAT 98
[2025-07-10] MEDS: 0.9 % Sodium Chloride Flush 3 ML SYRINGE IVFLUSH ×4 (01:10→22:01)
[2025-07-10 03:25] VITALS: BP 143/65; PULSE 58; RESP 17; TEMP 36.7; O2SAT 98
[2025-07-10 07:24] LABS: Anion Gap 13 (12-20); Blood Urea Nitrogen 35 mg/dL (9-16); Calcium 8.8 mg/dL (8.4-10.2); Carbon Dioxide 35 mmol/L (22-29); Chloride 96 mmol/L (96-108); Creatinine Clr Calc Pharmacy 44.6; Estimated Glomerular Filt Rate 38; Magnesium 1.5 mg/dL (1.6-2.6); Potassium 4.2 mmol/L (3.3-5.1); Sodium 140 mmol/L (135-145)
[2025-07-10 07:25] LABS: NT Pro B Type Natriuretic Pept 232.5 pg/mL (<300)
[2025-07-10 07:40] LABS: Procalcitonin 0.03 ng/mL
[2025-07-10 07:58] LABS: Glucose, Whole Blood 250 mg/dL (60-115)
[2025-07-10 08:00] VITALS: BP 132/61; PULSE 62; RESP 20; TEMP 36.9; O2SAT 95
[2025-07-10] MEDS: Furosemide 40 MG/4 ML VIAL IVPUSH ×2 (08:39→16:55)
[2025-07-10] MEDS: Ferrous Sulfate 324 MG TABLET.DR PO (08:40)
[2025-07-10] MEDS: oxyCODONE HCl Immed Release 5 MG TABLET PO ×2 (08:40→16:54)
[2025-07-10] MEDS: Milk of Magnesia 30 ML ORAL.SUSP PO (08:41)
[2025-07-10 12:00] VITALS: BP 138/63; PULSE 65; RESP 20; TEMP 36.4; O2SAT 96
[2025-07-10 12:04] LABS: Glucose, Whole Blood 284 mg/dL (60-115)
[2025-07-10 14:58] VITALS: BP 166/71; PULSE 63; RESP 16; TEMP 36.4; O2SAT 98
[2025-07-10 16:54] LABS: Glucose, Whole Blood 268 mg/dL (60-115)
--- NOTE | 2025-07-10 17:25 | HO.PM.IMPN ---
Subjective Subjective Date of Service: 07/10/25 Interval History: [employer] use, feels less SOB Review of Systems Review of Systems: Yes all other systems are reviewed and are negative Physical Exam Vital Signs: Vital Signs: Last Vital Signs Temp 97.5 F 07/10/25 14:58 Pulse 63 07/10/25 14:58 Resp 16 07/10/25 14:58 BP 166/71 H 07/10/25 14:58 Pulse Ox 98 07/10/25 14:58 O2 Del Method Nasal Cannula 07/10/25 14:58 O2 Flow Rate 1 07/10/25 14:58 BMI result Body Mass Index 38.9 Objective Data Active Medications Acetaminophen (Acetaminophen 325 Mg Tablet) 650 mg PO Q6H PRN PRN Reason: Pain, Mild 1-3,fever,headache Last Admin: 07/10/25 15:36 Dose: 650 mg Documented By: GONZALO Albuterol Sulfate (Albuterol Sulfate (0.083%) 2.5 Mg/3 Ml Vial.Neb) 2.5 mg INHALE Q6H PRN PRN Reason: Shortness Of Breath Or Wheezing Amlodipine Besylate (Amlodipine Besylate 5 Mg Tablet) 5 mg PO DAILY [facility]; Protocol Last Admin: 07/10/25 08:41 Dose: 5 mg Documented By: GONZALO Apixaban (Apixaban 5 Mg Tablet) 5 mg PO BID [facility] Last Admin: 07/10/25 08:40 Dose: 5 mg Documented By: GONZALO Atorvastatin Calcium (Atorvastatin Calcium 80 Mg Tablet) 80 mg PO BEDTIME [facility] Last Admin: 07/09/25 21:01 Dose: 80 mg Documented By: BALWINDER Calcium Carbonate (Calcium Carbonate 750 Mg Tab.Chew) 750 mg PO Q4H PRN PRN Reason: Heartburn Cyclobenzaprine HCl (Cyclobenzaprine Hcl 5 Mg Tablet) 5 mg PO TID PRN PRN Reason: muscle spasms Last Admin: 07/10/25 16:54 Dose: 5 mg Documented By: GONZALO Dextrose (Dextrose 50 % 25 Gm/50 Ml Syringe) 25 gm IVPUSH Q15M PRN; Protocol PRN Reason: per Hypoglycemia Standing Ord. Diphenhydramine HCl (Diphenhydramine Hcl 25 Mg Capsule) 25 mg PO Q4H PRN PRN Reason: Itching Last Admin: 07/10/25 13:40 Dose: 25 mg Documented By: GONZALO Duloxetine HCl (Duloxetine Hcl 20 Mg Capsule.) 20 mg PO DAILY [facility] Last Admin: 07/10/25 08:40 Dose: 20 mg Documented By: GONZALO Ferrous Sulfate (Ferrous Sulfate 324 Mg Tablet.) 324 mg PO DAILY [facility] Last Admin: 07/10/25 08:40 Dose: 324 mg Documented By: GONZALO Fluconazole (Fluconazole 150 Mg Tablet) 150 mg PO Q72H [facility] Stop: 07/12/25 11:01 Last Admin: 07/09/25 11:50 Dose: 150 mg Documented By: GONZALO Furosemide (Furosemide 40 Mg/4 Ml Vial) 40 mg IVPUSH BID@0900,1800 [facility]; Protocol Last Admin: 07/10/25 16:55 Dose: 40 mg Documented By: GONZALO Gabapentin (Gabapentin 400 Mg Capsule) 400 mg PO TID [facility] Last Admin: 07/10/25 15:35 Dose: 400 mg Documented By: GONZALO Glucose (Glucose Gel 15 Gm Gel..Gram.) 15 gm PO Q15M PRN; Protocol PRN Reason: per Hypoglycemia Standing Ord. Insulin Glargine (Insulin Glargine,Hum.Rec.Anlog 100 Unit/Ml 10 Ml Vial) 32 unit SUBCUT BEDTIME [facility] Last Admin: 07/09/25 21:00 Dose: 32 unit Documented By: BALWINDER Insulin Human Lispro (Insulin Lispro 100 Unit/Ml 3 Ml Vial) 0 unit SUBCUT QIDACHS [facility]; Protocol Last Admin: 07/10/25 16:55 Dose: 6 unit Documented By: GONZALO Levothyroxine Sodium (Levothyroxine Sodium 100 Mcg Tablet) 100 mcg PO DAILY@0600 [facility] Last Admin: 07/10/25 06:40 Dose: Not Given Documented By: REINIER Non-Admin Reason: Patient Refused Magnesium Hydroxide (Milk Of Magnesia 30 Ml Oral.Susp) 30 ml PO DAILY PRN PRN Reason: Constipation Last Admin: 07/10/25 08:41 Dose: 30 ml Documented By: GONZALO Melatonin (Melatonin 3 Mg Tablet) 6 mg PO BEDTIME PRN PRN Reason: Insomnia Omeprazole (Omeprazole 40 Mg Capsule.) 40 mg PO DAILY@0630 [facility] Last Admin: 07/10/25 06:40 Dose: Not Given Documented By: REINIER Non-Admin Reason: Patient Refused Ondansetron HCl (Ondansetron Hcl 4 Mg/2 Ml Vial) 4 mg IVPUSH Q8H PRN PRN Reason: Nausea and Vomiting Oxycodone HCl (Oxycodone Hcl Immed Release 5 Mg Tablet) 5 mg PO Q8H PRN PRN Reason: severe pain (scale score 7-10) Last Admin: 07/10/25 16:54 Dose: 5 mg Documented By: GONZALO Sodium Chloride (0.9 % Sodium Chloride Flush 3 Ml Syringe) 3 ml IVFLUSH QSHIFT [facility] Last Admin: 07/10/25 15:38 Dose: 3 ml Documented By: GONZALO Trazodone HCl (Trazodone Hcl 50 Mg Tablet) 150 mg PO BEDTIME [facility] Last Admin: 07/09/25 21:01 Dose: 150 mg Documented By: PRUDENCIOANES Labs 07/09/25 08:16 07/10/25 06:48 Labs: Laboratory Results - last 24 hr 07/09/25 07/10/25 07/10/25 20:55 06:48 07:52 Anion Gap 13 Estim Creat Clear Calc 44.6 Estimated GFR 38 POC Glucose 245 H 250 H Random Glucose 247 H Calcium 8.8 Magnesium 1.5 L NT-Pro-B Natriuret Pep 232.5 Procalcitonin 0.03 07/10/25 07/10/25 11:57 16:50 Anion Gap Estim Creat Clear Calc Estimated GFR POC Glucose 284 H 268 H Random Glucose Calcium Magnesium NT-Pro-B Natriuret Pep Procalcitonin Microbiology Microbiology Results: Microbiology 07/08/25 14:15 Blood Culture - Preliminary Blood - Venous No growth after 48 hours. 07/08/25 13:54 Blood Culture - Preliminary Blood - Venous No growth after 48 hours. Assessment and Plan (1) CHF (congestive heart failure): Status: Acute Plan d3 75yo F with?paroxysmal AFib on Eliquis s/p cardioversion 06/2023, CAD, HFpEF, HTN, CKD 3, insulin-dependent type 2 diabetes, asthma, hypothyroidism, depression, and anxiety presenting with leg swelling and cough, found to have MARK and ground-glass infiltrate, likely pulmonary edema less likely pneumonia. MARK/CKD3 - improving with diuresis, so likely cardiorenal; continue to diurese and monitor SCr acute/chronic HFpEF - strict I/O, IV Lasix, monitor lytes + NT-pro-BNP - TTE 07/09: - The left ventricular systolic function is normal. The calculated ejection fraction is 67% by biplane method. - There is moderately increased left ventricular wall thickness. - Evidence suggests grade II (moderate) diastolic dysfunction. - There is moderate calcification of the aortic valve. There is mild aortic valve stenosis. - Calcified mitral apparatus but no significant dysfunction. - continue amlodipine change to oral Lasix acute hypoxic respiratory failure ground-glass infiltrate - suspect from CHF rather than PNA; will d/c ceftriaxone and doxycycline as PCT is low - supplemental O2, wean as tolerated DM2 with hyperglycemia: basal-bolus insulin pAF: apixaban; not on rate control agent CAD: atorvastatin VTE prophylaxis: apixaban dispo: home with family support per PT In my clinical judgment, the patient requires continued inpatient hospitalization for the following reasons: IV diuresis, MARK likely home tomorrow Total time managing care of this patient today: 35 minutes. Quality Stroke Does the patient have a stroke diagnosis?: No VTE Prior VTE?: No VTE Risk Level:: Medical - moderate - high VTE Device Contraindication: N/A - Device Ordered VTE Drug Contraindication: N/A - Med Ordered
[2025-07-10 19:03] VITALS: BP 157/69; PULSE 65; RESP 16; TEMP 36.6; O2SAT 93
[2025-07-10 20:42] LABS: Glucose, Whole Blood 250 mg/dL (60-115)
[2025-07-10] MEDS: Insulin Glargine,Hum.rec.anlog 100 UNIT/ML 10 ML VIAL 32 UNIT SUBCUT (21:57)
[2025-07-11] VITALS: BP 119/56; PULSE 64; RESP 17; TEMP 36.4; O2SAT 94
[2025-07-11 04:00] VITALS: BP 129/68; PULSE 59; RESP 17; TEMP 36.8; O2SAT 96
[2025-07-11 08:00] VITALS: BP 138/60; PULSE 60; RESP 18; TEMP 36.1; O2SAT 98
[2025-07-11 08:34] LABS: Glucose, Whole Blood 252 mg/dL (60-115)
[2025-07-11] MEDS: Ferrous Sulfate 324 MG TABLET.DR PO (08:51)
[2025-07-11] MEDS: 0.9 % Sodium Chloride Flush 3 ML SYRINGE IVFLUSH (08:53)
[2025-07-11 11:13] LABS: Glucose, Whole Blood 330 mg/dL (60-115)
--- NOTE | 2025-07-11 11:34 | PC.NURSE ---
Addendum entered by Ann Johnson RN 07/11/25 13:55: White vaginal discharge observed. Pt is asking which antibiotic she has been taking. She reports that benedryl was effective for itching. Original Note: Pt complains of vaginal itching related to her antibiotics. Pt also reports anxiety today. MD curtis
[2025-07-11 11:42] VITALS: BP 166/66; PULSE 64; RESP 20; TEMP 36.3; O2SAT 97
--- NOTE | 2025-07-11 12:12 | P.DS_ITS ---
DS: Providers Provider Date of Service: 07/11/25 Date of admission: 07/08/25 16:20 Date of discharge: 07/11/25 Primary care physician: Amanda Myers MD DS: Diagnosis Discharge Diagnosis (1) CHF (congestive heart failure): Status: Acute DS: Summary Hospital Course Hospital Course: Admission hpi Chief Complaint: leg pain 75yo F with?paroxysmal AFib on Eliquis s/p cardioversion 06/2023, CAD, HFpEF, HTN, CKD 3, insulin-dependent type 2 diabetes, asthma, hypothyroidism, depression, and anxiety who presents to the ED with several days of worsening leg swelling and pain. Endorses dry cough and some wheezing. Notes orthopnea and exertional dyspnea. Reports BGs at home in the 300s. Thinks she has gained weight but doesn't weigh herself every day. No chest pain. No fever. Compliant with Eliquis. Noted in ED to be hypoxic to 86% on RA. Retrocardiac infiltrate noted on CXR. SCr up to 1.71 from baseline of 1.3. Pt given ceftriaxone and IV NS. This history was taken in Chinese from the patient. hospital course: 75yo F with?paroxysmal AFib on Eliquis s/p cardioversion 06/2023, CAD, HFpEF, HTN, CKD 3, insulin-dependent type 2 diabetes, asthma, hypothyroidism, depression, and anxiety presenting with leg swelling and cough, found to have MARK and ground-glass infiltrate, likely pulmonary edema less likely pneumonia. MARK/CKD3 - improving with diuresis, so likely cardiorenal; continue to diurese and monitor SCr acute/chronic HFpEF - strict I/O, IV Lasix, monitor lytes + NT-pro-BNP - TTE 07/09: - The left ventricular systolic function is normal. The calculated ejection fraction is 67% by biplane method. - There is moderately increased left ventricular wall thickness. - Evidence suggests grade II (moderate) diastolic dysfunction. - There is moderate calcification of the aortic valve. There is mild aortic valve stenosis. - Calcified mitral apparatus but no significant dysfunction. - continue amlodipine changing back to home Bumex acute hypoxic respiratory failure ground-glass infiltrate - suspect from CHF rather than PNA; will d/c ceftriaxone and doxycycline as PCT is low - supplemental O2, wean as tolerated DM2 with hyperglycemia: basal-bolus insulin pAF: apixaban; not on rate control agent CAD: atorvastatin Time Attestation Discharge Coordination Time (in mins): 45 Quality: Safe Use of Opioids Does Pt have an Active Cancer Diagnosis on the Problem List?: No Quality: Stroke Does the patient have a stroke diagnosis?: No Physical Exam Vital Signs: Vital Signs: Last Vital Signs Temp 97.3 F 07/11/25 11:42 Pulse 64 07/11/25 11:42 Resp 20 07/11/25 11:42 BP 166/66 H 07/11/25 11:42 Pulse Ox 97 07/11/25 11:42 O2 Del Method Nasal Cannula 07/11/25 11:42 O2 Flow Rate 1 07/11/25 11:42 BMI result Body Mass Index 38.9 DS: Data Data Completed and Pending Completed studies during hospitalization [Text1]: Procedures Control Bleeding in Gastrointestinal Tract, Via Natural or Artificial Opening Endoscopic (03/03/25) Drainage of Right Shoulder Joint, Percutaneous Approach, Diagnostic (04/17/25) Excision of Duodenum, Via Natural or Artificial Opening Endoscopic, Diagnostic (03/03/25) Excision of Right Large Intestine, Via Natural or Artificial Opening Endoscopic, Diagnostic (03/03/25) Excision of Right Shoulder Bursa and Ligament, Percutaneous Endoscopic Approach (04/17/25) Excision of Stomach, Via Natural or Artificial Opening Endoscopic, Diagnostic (03/03/25) Insertion of Infusion Device into Upper Vein, Percutaneous Approach (04/17/25) Transfusion of Nonautologous Red Blood Cells into Peripheral Vein, Percutaneous Approach (03/03/25) Labs on day of discharge: Laboratory Results - last 24 hr 07/10/25 07/10/25 07/11/25 16:50 20:38 08:28 POC Glucose 268 H 250 H 252 H 07/11/25 11:07 POC Glucose 330 H Preliminary micro results at discharge 07/08/25 14:15 Blood Culture - Preliminary Blood - Venous No growth after 48 hours. 07/08/25 13:54 Blood Culture - Preliminary Blood - Venous No growth after 48 hours. Discharge Plan Discharge Anticipated Discharge Date/Time: 07/11/25 12:16 Patient Disposition: Home Health Service Discharge Diagnosis: CHF exacerbation Referrals: Amanda Watkins MD [Primary Care Provider, Internal Medicine] - 1 Week Discharge Medications: New furosemide 40 mg Tablet 40 mg PO BID@0900,1800 Qty: 180 0RF Protocol: Hold for SBP< HOLD for SBP < : 90 Continued ferrous fumarate [Ferrocite] 324 mg (106 mg iron) tablet 324 mg PO DAILY Qty: 90 0RF atorvastatin 80 mg tablet 80 mg PO BEDTIME Eliquis 5 mg Tablet 5 mg PO BID Qty: 60 0RF omeprazole 40 mg capsule,delayed release(DR/EC) 40 mg PO DAILY@0630 duloxetine 20 mg capsule,delayed release(DR/EC) 20 mg PO DAILY calcium carbonate [Oyster Shell Calcium 500] 500 mg calcium (1,250 mg) tablet 500 mg PO BID Patient Comments: Applies to legs oxycodone-acetaminophen [Percocet] 5-325 mg tablet 1 tab PO Q8H PRN (Reason: severe pain (scale score 7-10)) Qty: 6 0RF Rx Instructions: Partial Fill upon patient request. gabapentin 400 mg capsule 400 mg PO TID Mounjaro 7.5 mg/0.5 mL pen injector 7.5 mg subcut FR@0900 amlodipine 5 mg Tablet 5 mg PO DAILY Qty: 30 0RF Protocol: Hold for SBP< HOLD for SBP < : 90 trazodone 150 mg tablet 150 mg PO BEDTIME albuterol sulfate 2.5 mg /3 mL (0.083 %) solution for nebulization 2.5 mg inhalation Q6H PRN (Reason: Shortness Of Breath Or Wheezing) albuterol sulfate 90 mcg/actuation HFA aerosol inhaler 2 puff INHALATION QID PRN (Reason: Shortness Of Breath Or Wheezing) levothyroxine [Synthroid] 100 mcg Tablet 100 mcg PO DAILY@0600 Qty: 90 0RF aspirin 81 mg tablet,delayed release (DR/EC) 81 mg PO DAILY docusate sodium 100 mg capsule 100 mg PO BID cyclobenzaprine 5 mg tablet 5 mg PO TID PRN (Reason: muscle spasms) melatonin 5 mg tablet 5 mg PO BEDTIME insulin degludec [Tresiba FlexTouch U-200] 200 unit/mL (3 mL) insulin pen 64 unit subcut DAILY acetaminophen 325 mg Tablet 650 mg PO Q6H PRN (Reason: Pain, Mild 1-3,Fever,Headache) 30 Days Qty: 240 0RF ketoconazole 2 % shampoo 1 appl topical MOTH@0900 hydroxyzine HCl 25 mg tablet 25 mg PO Q8H PRN (Reason: anxiety) Qty: 30 0RF Discontinued torsemide 20 mg tablet 20 mg PO DAILY Qty: 30 0RF Discharge Orders: Discharge Order (Routine); Ordered 07/11/25 Ordered By: Kevin Panda Diet: Advance to usual diet Activity on Discharge: As tolerated Stand Alone Forms: Patient Portal Discharge page Print Language: Chinese Care Plan Goals: recovery from heart failure Health Concerns: heart failure Plan of Treatment: stop taking torsemide and take Lasix instead Assessment: see above
[2025-07-11] MEDS: Aspirin Enteric Coated 81 MG TABLET.DR PO (13:00)
[2025-07-11 13:16] LABS: Anion Gap 12 (12-20); Blood Urea Nitrogen 40 mg/dL (9-16); Calcium 8.7 mg/dL (8.4-10.2); Carbon Dioxide 36 mmol/L (22-29); Chloride 97 mmol/L (96-108); Creatinine Clr Calc Pharmacy 44.0; Estimated Glomerular Filt Rate 38; Potassium 4.8 mmol/L (3.3-5.1); Sodium 140 mmol/L (135-145)
[2025-07-11] MEDS: Milk of Magnesia 30 ML ORAL.SUSP PO (13:36)
--- NOTE | 2025-07-11 15:09 | MHC.CM.PN ---
Pt has been medically cleared to MD, she will go home via family transport and resume her home care services.
[2025-07-11 15:29] LABS: Glucose, Whole Blood 241 mg/dL (60-115)
--- NOTE | 2025-07-11 16:35 | PC.NURSE ---
Pt reported good relief of itching from benedryl. Dtr present at discharge. Dtr berbalised intent to take pt's pill boxes to clinic to set up new regimen. She will strip picker atarax outpatient. Pt is very grateful for the prescription. Pt escroted off the unit via wheelchair.
== END 2025-07-11 16:38 | disposition home health service (06) | DRG 291 ==
LOC: HO.ED 16:07 → HO.EDOVER 16:24 → HO.IMC 22:03
PROVIDERS: Physician Assistant; Admitting Provider Family Medicine; Emergency Provider Emergency Medicine Emergency Medical Services; PCP Internal Medicine; Visit Provider Internal Medicine
DX: I13.0 Hypertensive heart and chronic kidney disease with heart failure and stage 1 through stage 4 chronic kidney disease, or unspecified chronic kidney disease (principal); I50.33 Acute on chronic diastolic (congestive) heart failure; J96.01 Acute respiratory failure with hypoxia; N17.9 Acute kidney failure, unspecified; N18.30 Chronic kidney disease, stage 3 unspecified; D63.1 Anemia in chronic kidney disease; I25.10 Atherosclerotic heart disease of native coronary artery without angina pectoris; E03.9 Hypothyroidism, unspecified; E11.65 Type 2 diabetes mellitus with hyperglycemia; I35.0 Nonrheumatic aortic (valve) stenosis; Z20.822 Contact with and (suspected) exposure to COVID-19; Z79.4 Long term (current) use of insulin; Z79.82 Long term (current) use of aspirin; Z79.85 Long-term (current) use of injectable non-insulin antidiabetic drugs; Z79.890 Hormone replacement therapy; Z79.899 Other long term (current) drug therapy
CPT/HCPCS: 36415; 71045; 71250; 74176; 80048; 80053; 81003; 82010; 82570; 82803; 82947; 83605; 83690; 83735; 83880; 84145; 84300; 85025; 85027; 87040; 87637; 93005; 93306; 93971; 97162; 99285; J0696; J1938; J2270; Q9957

== ENCOUNTER → 2025-07-08 10:28 | Outpatient (BNV) | payer OTHER, SELFPAY | PROVIDERS: Emergency Provider Emergency Medicine Emergency Medical Services; PCP Internal Medicine; Visit Provider Radiology Diagnostic Radiology | DX: K80.20 Calculus of gallbladder without cholecystitis without obstruction (principal); D25.9 Leiomyoma of uterus, unspecified; R91.8 Other nonspecific abnormal finding of lung field; I51.7 Cardiomegaly; R22.41 Localized swelling, mass and lump, right lower limb; M79.661 Pain in right lower leg; M79.662 Pain in left lower leg; R06.02 Shortness of breath; I31.39 Other pericardial effusion (noninflammatory) | CPT/HCPCS: 71045; 71250; 74176; 93971 ==

== ENCOUNTER → 2025-07-08 16:10 | Outpatient (BNV) | payer OTHER, SELFPAY | PROVIDERS: Admitting Provider Family Medicine; Emergency Provider Emergency Medicine Emergency Medical Services; PCP Internal Medicine; Visit Provider Internal Medicine | DX: R00.1 Bradycardia, unspecified (principal); I45.10 Unspecified right bundle-branch block | CPT/HCPCS: 93010 ==

== ENCOUNTER 2025-07-08 16:20 | Outpatient (BNV) | payer OTHER, SELFPAY | END 2025-07-09 07:00 | PROVIDERS: Admitting Provider Family Medicine; Emergency Provider Emergency Medicine Emergency Medical Services; PCP Internal Medicine; Visit Provider Internal Medicine | DX: I35.0 Nonrheumatic aortic (valve) stenosis (principal); I34.81 Nonrheumatic mitral (valve) annulus calcification; I35.8 Other nonrheumatic aortic valve disorders | CPT/HCPCS: 93306 ==

== ENCOUNTER → 2025-07-08 16:20 | Outpatient (BNV) | payer OTHER, SELFPAY | PROVIDERS: Admitting Provider Family Medicine; Emergency Provider Emergency Medicine Emergency Medical Services; PCP Internal Medicine; Visit Provider Family Medicine | DX: I50.33 Acute on chronic diastolic (congestive) heart failure (principal); J96.01 Acute respiratory failure with hypoxia | CPT/HCPCS: 99222; 99232; 99239 ==

== ENCOUNTER 2025-07-26 14:31 | Outpatient (REF) | payer OTHER, SELFPAY ==
--- OUTSIDE RECORDS SUMMARY | 2025-03-06 05:50 | XMS_ITS ---
Author Organization [facility] Address [address] [place] [address] Care Team Providers Care Personnel Administrator Name Role Phone Amanda Adame M.D. Primary Care Provider Geoff Leon Jr, João Unavailable [phone] REASON FOR VISIT anemia Encounters Encounter Location Date Provider Diagnosis [facility] [place] [address] [place], [place] [id number] 03/06/2025 João Leon Jr Plan Of Treatment Next Appt Details Provider Name:João yañez Jr, 07/26/2025 02:15:00 PM, [address], [address], [place], [address], Progress Notes * JP MORGANDOB:[birth year] (75 yo F)Acc No.[id number]:03/06/2025 EGD and COL/MAC Patient: JP HINKLE Provider: Shannan Leon MD :1950 A ge:74 Y S ex:Female Date:03/06/2025 Address:[address] [place] [address] [address] , [place], [place] Pcp:Amanda Adame M.D. Subjective: * Chief Complaints: * A nemia * The named appointment provid er may or may not be the originator of this progress note, and it is not deemed complete until electronically signed by the appointment provider. Sign off status: Pending * Provider: Shannan Leon MD Date: 0 03/06/2025 Generated for Selene garcia/Thad/Tachosmitting on: 1 09/26/2024 01:33 PM EST
--- OUTSIDE RECORDS SUMMARY | 2025-07-26 14:00 | XMS_ITS | Encounter Summary ---
Author Organization [employer] Address [address] [facility] [address] [place] [address] Care Team Providers Care Electrician Maintenance Name Role Phone Amanda Watkins MD Primary Care Provide r Hiro Ram SHUTTLE SPOTTER Unavailable Unavailable Raad Arias PharmD Unavailable [phone] Reason for Referral * Consultation (Routine) - Authorized Specialty Diagnoses / Procedures Referred By Contlinda t Referred To Contact Behavioral Health Diagnoses Depression with anxiety Procedures Referral to Behavioral Health Amanda Watkins MD [address] [place] [id number] Phone: tel: fax: Referral ID Status Reason Start Date Expiration Date Visits Requested Visits Authorized [id number] Authorized Specialty Services Required 07/26/2026 1 1 Encounter Details Date Type Department Care Team (Late st Contact Info) Description 07/26/2025 2:00 PM EST Office Visit [facility] [address] [place] [phone] Amanda Watkins MD [address] [place] [address] [phone] Essential (primary) hypertension; Chronic diastolic congestive heart failure (HCC); Type 2 diabetes mellitus with hyperglycemia, with long-term current use of insulin (HCC); Stage 3b chronic kidney disease (CMS/HCC) (HCC); Acute on chronic heart failure with preserved ejection fraction (HFpEF) (HCC); Excessive cerumen in ear canal, right; Depression with anxiety Social History Tobacco Use Types Packs/Day Years [...] Sign Reading Time Taken Comments Blood Pressure 127/78 07/26/2025 1:49 PM EST Pulse 64 07/26/2025 1:49 PM EST Temperature 36.3 C (97.4 F) 07/26/2025 1:49 PM EST Respiratory Rate 13 07/26/2025 1:49 PM EST Oxygen Saturation 97% 07/26/2025 1:49 PM EST Inhaled Oxygen Concentration - - Weight 106 kg (234 lb 3.2 oz) 07/26/2025 1:49 PM EST Height 154.9 cm (5' 1 ) 07/26/2025 1:49 PM EST Body Mass Index 44.25 07/26/2025 1:49 PM EST documented in this encounter Progress Notes * Amanda Myers MD - 07/26/2025 2:00 PM EST SUBJECTIVE: Mary Lou Cisneros is a 75 y.o. year old female who presents for HDF . [facility] (07/08/25-07/11/25) Patient with PMH including Afib, CAD, HFpEF, hypertension presented for evaluation of worsening legswelling and pain. Notes orthopnea and exertional dyspnea. Found to have MARK and ground-glass infiltrate, likely pulmonary edema less likely pneumonia. Ceftriaxone and doxycyline discontinued. MARK improved with diuresis with IV furosemide, likely cardiorenal. Discharged home. Medication changes that occurred during hospitalization include: Added Furosemide 40 mg twice a day Changed: none Discontinued torsemide Mary Lou Cisneros, age: 75 years Heart Failure and Fluid Retention - History of heart failure with prior hospital admission for symptoms of fluid overload - Experienced shortness of breath and tightness prior to hospitalization - Noted improvement in symptoms after medication change for diuresis - Reports frequent urination and concern about excessive fluid intake - Dry mouth and throat associated with diuretic use - Difficulty controlling water intake, drinks 6 to 8 bottles of water daily and chews ice - Emotional distress related to family discussions about fluid restriction Ear Pruritus and Cerumen - Chronic ear itching, described as persistent - Cerumen reported as hard - History of prior ear irrigation with hydrogen peroxide and saline, resulting in significant cerumen removal Anemia - History of anemia - Craving and chewing ice associated with anemia - Iron tablet prescribed on March 22, 2025, taken once daily Constipation - Occasional constipation reported - Uses Colace as needed Misc - Expresses need for in-home therapist, difficulty attending appointments, prefers phone contact for therapy Social History Social History Narrative Not on file Problem List[1] Agoraphobia with panic attacks Anxiety Backache Coronary atherosclerosis Candidiasis of vagina Cough Depression with anxiety Hypertension Generalized anxiety disorder Hyperlipidemia Ingrowing toenail Injury of face Onychomycosis of toenail Pain in left arm Type 2 diabetes mellitus with diabetic autonomic (poly)neuropathy ([facility]) Varicose veins of lower extremity Anxiety attack Knee pain Abnormal gait Pain in left knee Lower extremity edema Moderate asthma Dyspnea on exertion Epigastric pain Excessive cerumen in both ear canals Cellulitis Acquired hypothyroidism ANILA (obstructive sleep apnea) Lumbar radiculopathy, chronic Chronic bilateral low back pain with bilateral sciatica Exposure to COVID-19 virus Venous stasis dermatitis Venous insufficiency Arthritis Bronchitis Atrial fibrillation (CMS/HCC) ([facility]) Congestive heart failure ([facility]) Gastroesophageal reflux disease Obesity Opioid dependence ([facility]) Osteoporosis Retention of urine Hypothyroidism Depressive disorder Mixed anxiety and depressive disorder Essential (primary) hypertension Hypertensive disorder Asthma Obstructive sleep apnea syndrome Diabetes mellitus ([facility]) Arterial insufficiency Stage 3b chronic kidney disease (CMS/[facility]) ([facility]) Mixed stress and urge urinary incontinence Type 2 diabetes mellitus with hyperglycemia, with long-term current use of insulin ([facility]) Chronic diastolic congestive heart failure ([facility]) Allergic conjunctivitis of both eyes Other constipation Long-term current use of opiate analgesic MDD (major depressive disorder), recurrent episode, moderate (CMS/HCC) ([facility]) Morbid obesity (CMS/HCC) ([facility]) Anemia Chronic gastritis Primary osteoarthritis, right shoulder Slow transit constipation Seborrheic dermatitis Primary insomnia Cellulitis of right lower extremity Degenerative arthritis of thumb, right Fibromyalgia Chronic pain of both shoulders Venous stasis ulcer of calf (CMS/HCC) ([facility]) Acute on chronic heart failure with preserved ejection fraction (HFpEF) ([facility]) Excessive cerumen in ear canal, right Family History[2] Review of Systems Constitutional: Negative. HENT: Negative. Respiratory: Negative. Cardiovascular: Negative. Musculoskeletal: Positive for arthralgias and back pain. Follow Up: Follow up in about 3 months (around 10/24/2025) for chronic conditions . Medications Ordered Prior to Encounter[3] Problem List Items Addressed This Visit Essential (primary) hypertension (Chronic) Relevant Orders Basic Metabolic Panel Chronic diastolic congestive heart failure ([facility]) Relevant Orders Basic Metabolic Panel Type 2 diabetes mellitus with hyperglycemia, with long-term current use of insulin ([facility]) Relevant Orders POCT Glucose (Completed) POCT Hgb A1c (Completed) Stage 3b chronic kidney disease (CMS/HCC) ([facility]) Relevant Medications Ferrocite 324 MG tablet Other Relevant Orders Basic Metabolic Panel Acute on chronic heart failure with preserved ejection fraction (HFpEF) ([facility]) Excessive cerumen in ear canal, right Relevant Medications carbamide peroxide (Debrox) 6.5 % otic solution Depression with anxiety Relevant Orders Referral to Behavioral Health - Essential (primary) hypertension: - Continue current antihypertensive regimen. Monitor blood pressure. - Chronic diastolic congestive heart failure ([facility]): - Diastolic heart failure with volume overload, improved after medication adjustment. - Changed diuretic to furosemide 40 mg twice daily. Recommended monitoring fluid intake, specifically limiting to two bottles of water per day. Advised follow- up with cardiology. Ordered renal function and electrolyte labs due to medication change. Next appointment in three months. - Risks and side effects: Discussed risk of volume overload and respiratory compromise if fluid intake is excessive. - Type 2 diabetes mellitus with hyperglycemia, with long-term current use of insulin ([facility]): - Glycemic control monitored; currently on Mounjaro 7.5 mg. - Continue Mounjaro at current dose until completion, then increase to 10 mg as next step. Monitor for gastrointestinal side effects including constipation and diarrhea. - Risks and side effects: Discussed potential gastrointestinal side effects. - Stage 3b chronic kidney disease ([facility]) ([facility]): - Chronic kidney disease monitored due to medication changes. - Ordered renal function and electrolyte labs to monitor kidney status after switching diuretic. - Acute on chronic heart failure with preserved ejection fraction (HFpEF) ([facility]): - Heart failure with preserved ejection fraction managed; noted improvement after hospitalization and medication change. - Continue current regimen. Monitor for signs of fluid overload. Follow up with cardiology. - Risks and side effects: Discussed risk of exacerbation if fluid intake not controlled. - Excessive cerumen in ear canal, right: - Reported pruritus in right ear; cerumen described as hard. - Advised cleaning as needed; no intervention at this time. - Depression with anxiety: - Will renew referral to therapist; recommended answering phone calls for therapy appointments. - Medication adherence and management: - Issues with medication organization and adherence due to multiple caregivers; concern for missed doses. - Recommended organizing medications into pill boxes including furosemide, iron supplement, and Colace. Will send prescription for iron to pharmacy for inclusion in pill box. Advised bringing medications for organization at pharmacy. This note was drafted using Ambient (AI) technology. The patient/patient's guardian has been informed and has consented to the use of this technology: Yes [1] Patient Active Problem List Diagnosis Agoraphobia with panic attacks Anxiety Backache Coronary atherosclerosis Candidiasis of vagina Cough Depression with anxiety Hypertension Generalized anxiety disorder Hyperlipidemia Ingrowing toenail Injury of face Onychomycosis of toenail Pain in left arm Type 2 diabetes mellitus with diabetic autonomic (poly)neuropathy ([facility]) Varicose veins of lower extremity Anxiety attack Knee pain Abnormal gait Pain in left knee Lower extremity edema Moderate asthma Dyspnea on exertion Epigastric pain Excessive cerumen in both ear canals Cellulitis Acquired hypothyroidism ANILA (obstructive sleep apnea) Lumbar radiculopathy, chronic Chronic bilateral low back pain with bilateral sciatica Exposure to COVID-19 virus Venous stasis dermatitis Venous insufficiency Arthritis Bronchitis Atrial fibrillation (CMS/HCC) (HCC) Congestive heart failure (HCC) Gastroesophageal reflux disease Obesity Opioid dependence ([facility]) Osteoporosis Retention of urine Hypothyroidism Depressive disorder Mixed anxiety and depressive disorder Essential (primary) hypertension Hypertensive disorder Asthma Obstructive sleep apnea syndrome Diabetes mellitus ([facility]) Arterial insufficiency Stage 3b chronic kidney disease (CMS/HCC) ([facility]) Mixed stress and urge urinary incontinence Type 2 diabetes mellitus with hyperglycemia, with long-term current use of insulin ([facility]) Chronic diastolic congestive heart failure ([facility]) Allergic conjunctivitis of both eyes Other constipation Long-term current use of opiate analgesic MDD (major depressive disorder), recurrent episode, moderate (CMS/HCC) (HCC) Morbid obesity (CMS/HCC) ([facility]) Anemia Chronic gastritis Primary osteoarthritis, right shoulder Slow transit constipation Seborrheic dermatitis Primary insomnia Cellulitis of right lower extremity Degenerative arthritis of thumb, right Fibromyalgia Chronic pain of both shoulders Venous stasis ulcer of calf (CMS/HCC) (HCC) Acute on chronic heart failure with preserved ejection fraction (HFpEF) ([facility]) Excessive cerumen in ear canal, right [2] No family history on file. [3] Current Outpatient Medications on File Prior to Visit Medication Sig Dispense Refill acetaminophen (Acetaminophen 8 Hour) 650 MG ER tablet Take 650 mg by mouth every 8 (eight) hours ifneeded for mild pain. Do not crush, chew, or split. albuterol (2.5 MG/3ML) 0.083% nebulizer solution Take 3 mL by nebulization every 6 (six) hours. albuterol 108 (90 Base) MCG/ACT inhaler Inhale 1 puff if needed in the morning, at noon, in the evening, and at bedtime for wheezing or shortness of breath. Alcohol Swabs (Alcohol Prep) 70 % pads USE DIRECTED TO TEST BLOOD SUGAR THREE TIMES DAILY 100 each 11 amLODIPine (Norvasc) 5 MG tablet TAKE 1 TABLET BY MOUTH EVERY MORNING 30 tablet 3 atorvastatin (Lipitor) 80 MG tablet TAKE 1 TABLET BY MOUTH AT BEDTIME 90 tablet 1 Blood Glucose Monitoring Suppl (FreeStyle Winger Lite) w/Device kit Use to test blood sugar 3 times daily 1 kit 0 Continuous Glucose Floor Cashier (FreeStyle Mickey 3 Ipava) device 1 each Once per day. Use as directed for CGM 1 each 0 Continuous Glucose Sensor (FreeStyle Mickey 3 Plus Sensor) misc 1 each every 15 days. Apply 1 every 15 days as directed for CGM 2 each 11 Diclofenac Sodium 1 % gel Apply 1 Application topically every 12 (twelve) hours if needed (apply ifneeded). 150 g 1 docusate sodium (Colace) 100 MG capsule TAKE 1 CAPSULE BY MOUTH TWICE DAILY 60 capsule 3 DULoxetine (Cymbalta) [address] capsule TAKE 1 CAPSULE BY MOUTH EVERY MORNING 30 capsule 1 Eliquis 5 MG tablet TAKE 1 TABLET BY MOUTH TWICE DAILY IN THE MORNING AND AT BEDTIME 60 tablet 2 Eye Itch Relief 0.035 % solution INSTILL 1 DROP AFFECTED EYE(S) EVERY TWELVE HOURS NEEDED 10 mL 1 FREESTYLE LITE test strip Use to test blood sugar 3 times daily 100 each 12 furosemide (Lasix) 40 MG tablet Take 1 tablet (40 mg) by mouth 2 times daily. 180 tablet 0 gabapentin (Neurontin) 400 MG capsule Take 1 capsule by mouth 3 times daily. in morning, evening and bedtime hydrOXYzine HCl (Atarax) 25 MG tablet Take 1 tablet (25 mg) by mouth every 8 (eight) hours if needed for anxiety. 90 tablet 0 insulin degludec (Tresiba FlexTouch) 200 UNIT/ML injection Inject 64 units under the skin daily 18 mL 5 ketoconazole (NIZOral) 2 % shampoo Apply topically 2 (two) times a week. 120 mL 2 levothyroxine (Synthroid, Levoxyl) 100 MCG tablet Take 1 tablet (100 mcg) by mouth before breakfast. 90 tablet 0 lidocaine (Lidoderm) 5 % patch Apply 1 patch topically Once per day. Remove & discard patch within 12 hours or as directed by . 30 patch 1 melatonin 5 MG tablet Take 1 tablet (5 mg) by mouth at bedtime. 90 tablet 0 Mounjaro 7.5 MG/0.5ML solution auto-injector INJECT ONE PEN (=7.5MG) SUBCUTANEOUSLY ONCE A WEEK DIRECTED 2 mL 1 naloxone (Narcan) 4 mg/0.1 mL nasal spray spray 0.1 milliliter by intranasal route in 1 nostril mayrepeat dose every 2-3 minutes as needed alternating nostrils with each dose nitroglycerin (Nitrostat) 0.3 MG SL tablet DISSOLVE 1 TABLET UNDER THE TONGUE EVERY 5 MINUTES NEEDED FOR CHEST PAIN. CALL 911 IF NO RELIEF. DO NOT EXCEED 3 TABLETS IN 15 MINUTES 100 tablet 1 omeprazole (PriLOSEC) [address] capsule TAKE 1 CAPSULE BY MOUTH EVERY MORNING BEFORE BREAKFAST. DO NOT BREAK, CRUSH, DISSOLVE OR CHEW 30 capsule 11 oxyCODONE-acetaminophen (Percocet) 5-325 MG tablet TAKE 1 TABLET EVERY 6 HOURS NEEDED FOR SEVEREPAIN 112 tablet 0 Oyster Shell Calcium 500 MG tablet TAKE 1 TABLET BY MOUTH TWICE DAILY IN THE MORNING AND AT [id number] tablet 1 pen needle 32G x 4 mm misc Use daily with insulin 100 each 3 traZODone (Desyrel) 150 MG tablet Take 1 tablet (150 mg) by mouth at bedtime. 90 tablet 2 TRUEplus Lancets 33G misc USE DIRECTED TO TEST BLOOD SUGAR THREE TIMES DAILY 100 each 5 [DISCONTINUED] Ferrocite 324 MG tablet Take 1 tablet by mouth Once per day. [DISCONTINUED] furosemide (Lasix) 40 MG tablet Take 1 tablet by mouth 2 times daily. [DISCONTINUED] gabapentin (NEURONTIN) 400 MG tablet Take 1 tablet (400 mg) by mouth 3 times daily. 90 tablet 2 [DISCONTINUED] melatonin 5 MG tablet TAKE 1 TABLET BY MOUTH AT BEDTIME 90 tablet 0 [DISCONTINUED] oxyCODONE-acetaminophen (Percocet) 5-325 MG tablet Take 1 tablet by mouth every 6 (six) hours if needed for severe pain for up to 28 days. 112 tablet 0 [DISCONTINUED] torsemide (Demadex) 20 MG tablet TAKE 1 TABLET BY MOUTH EVERY MORNING 30 tablet 3 No current facility-administered medications on file prior to visit. documented in this encounter Plan of Treatment Upcoming Encounters Date Type Department Care Team (Late st Contact Info) Description 09/07/2025 3:00 PM EST Office Visit [facility] [address] [place] [phone] Gail Fleming MD [address] [place] [address] 09/21/2025 10:00 AM EST Telemedicine [address] [id number] Kayley Alanis RN 10/25/2025 2:30 PM EDT Office Visit [facility] [address] [place] [phone] Amanda Watkins MD [address] [place] [address] Scheduled Orders Name Type Priority Associated Diagnoses Orde r Schedule Basic Metabolic Panel Lab Routine Essential (primary) hypertension Chronic diastolic congestive heart failure (HCC) Stage 3b chronic kidney disease (CMS/HCC) (HCC) Expected: 07/26/2025 (Approximate), Expires: 07/26/2026 documented as of this encounter Goals Goal Patient Goal Type Associated Problems Recent Progress Patient-Stated? Author Help patients manage their type 2 diabetes Care Plan Help patients manage their type 2 diabetes No Ann Farley PharmD Weekly blood pressure task Care Plan Weekly blood pressure task No Ann Farley, PharmEmily Help patients manage their type 2 diabetes Care Plan Help patients manage their type 2 diabetes No Ann Farley, PharmEmily Patient has chronic kidney disease Care Plan Patient has chronic kidney disease No Ann Farley, PharmEmily Weekly blood pressure task Care Plan [...] Care Plan Weekly blood pressure task No Luis Sánchezilda Patient has chronic kidney disease Care Plan Patient has chronic kidney disease No Luis Sánchezilda Patient has chronic kidney disease Care Plan Patient has chronic kidney disease No Luis Sánchezilda Weekly blood pressure task Care Plan Weekly [...] has chronic kidney disease No Hugh Angel Weekly blood pressure task Care Plan Weekly blood pressure task No Keila Tinsley [place] Weekly blood pressure task Care Plan Weekly blood pressure task No Keila Tinsley [place] Patient has chronic kidney disease Care Plan Patient has chronic kidney disease No Keila Tinsley [place] Patient has chronic kidney disease Care Plan Patient has chronic kidney disease No Keila Tinsley [place] Weekly blood pressure task Care Plan Weekly blood pressure task No Valery Manzanares Weekly blood pressure task Care Plan Weekly blood pressure task No Valery Manzanares Patient has chronic kidney disease Care Plan Patient has chronic kidney disease No Valery Manzanares Patient has chronic kidney disease Care Plan Patient has chronic kidney disease No Valery Manzanares Weekly blood pressure task Care Plan Weekly blood pressure task No Amanda Watkins MD Weekly blood pressure task Care Plan Weekly blood pressure task No Amanda Watkins MD Patient has chronic kidney disease Care Plan Patient has chronic kidney disease No Amanda Watkins MD Patient has chronic kidney disease Care Plan Patient has chronic kidney disease No Amanda Watkins MD Weekly blood pressure task Care Plan Weekly blood pressure task No Amanda Watkins MD Weekly blood pressure task Care Plan Weekly blood pressure task No Amanda Watkins MD Patient has chronic kidney disease Care Plan Patient has chronic kidney disease No Amanda Watkins MD Patient has chronic kidney disease Care Plan Patient has chronic kidney disease No Amanda Watkins MD Weekly blood pressure task Care Plan Weekly blood pressure task No Margie Sánchez Weekly blood pressure task Care Plan Weekly blood pressure task No Margie Sánchez Patient has chronic kidney disease Care Plan Patient has chronic kidney disease No Luis Sánchezilda Patient has chronic kidney disease Care Plan Patient has chronic kidney disease No Margie Sánchez Weekly blood pressure task Care Plan Weekly blood pressure task No Kayley Alanis RN Weekly blood pressure task Care Plan Weekly blood pressure task No Kayley Alanis, PHILLIP Patient has chronic kidney disease Care Plan Patient has chronic kidney disease No Kayley Alanis, PHILLIP Patient has chronic kidney disease Care Plan Patient has chronic kidney disease No Kayley Alanis, PHILLIP Weekly blood pressure task Care Plan Weekly blood pressure task No Sia Leon, Carlos Weekly blood pressure task Care Plan Weekly blood pressure task No Sia Leon, PharmD Patient has chronic kidney disease Care Plan Patient has chronic kidney disease No Sia Leon, PharmD Patient has chronic kidney disease Care Plan Patient has chronic kidney disease No Sia Leon, PharmD Weekly blood pressure task Care Plan Weekly blood pressure task No Thea Vick [place] Weekly blood pressure task Care Plan Weekly blood pressure task No Thea Vick [place] Patient has chronic kidney disease Care Plan Patient has chronic kidney disease No Thea Vick [place] Patient has chronic kidney disease Care Plan Patient has chronic kidney disease No Thea Vick [place] Weekly blood pressure task Care Plan Weekly blood pressure task No Sia Leon PharmD Weekly blood pressure task Care Plan Weekly blood pressure task No Sia Leon PharmD Patient has chronic kidney disease Care Plan Patient has chronic kidney disease No Sia Leon PharmD Patient has chronic kidney disease Care Plan Patient has chronic kidney disease No Sia Leon PharmD Weekly blood pressure task Care Plan Weekly blood pressure task No Keila Tinsley [place] Weekly blood pressure task Care Plan Weekly blood pressure task No Keila Tinsley [place] Patient has chronic kidney disease Care Plan Patient has chronic kidney disease No Keila Tinsley [place] Patient has chronic kidney disease Care Plan Patient has chronic kidney disease No Keila Tinsley [place] documented as of this encounter Procedures Procedure Name Priority Date/Time Associated Diagnosis Comments POCT GLYCATED HEMOGLOBIN, TOTAL Routine 07/26/2025 1:59 PM EST Type 2 diabetes mellitus with hyperglycemia, with long-term current use of insulin ([facility]) POCT GLUCOSE Routine 07/26/2025 1:59 PM EST Type 2 diabetes mellitus with hyperglycemia, with long-term current use of insulin ([facility]) documented in this encounter Results * (ABNORMAL) POCT Hgb A1c (07/26/2025 1:59 PM EST) Pathologist [facility] Hemoglobin A1C 12.6(A) 4.0 - 5.7 % QC Media Lot # [id number] Lot# Expiration Date 61,727 Blood 07/26/2025 1:59 PM EST Amanda Myers MD POINT OF CARE TEST EN TER/EDIT ORDERABLES Final Result * (ABNORMAL) POCT Glucose (07/26/2025 1:59 PM EST) [facility] Glucose Blood, POC 405(A) 60 - 200 mg/dL QC Media Lot # [id number] Lot# Expiration Date 7,726 Blood Capillary blood specimen / Unknown 07/26/2025 1:59 PM EST Amanda Myers MD POINT OF CARE TEST EN TER/EDIT ORDERABLES Final Result documented in this encounter Visit Diagnoses Diagnosis Essential (primary) hypertension Unspecified essential hypertension Chronic diastolic congestive heart failure (HCC) Type 2 diabetes mellitus with hyperglycemia, with long-term current use of insulin (HCC) Stage 3b chronic kidney disease (CMS/HCC) (HCC) Acute on chronic heart failure with preserved ejection fraction (HFpEF) (HCC) Excessive cerumen in ear canal, right Depression with anxiety Dysthymic disorder documented in this encounter Additional Health Concerns [...] 07/03/2025 Patient has chronic kidney disease 07/03/2025 Weekly blood pressure task 07/09/2025 Weekly blood pressure task 07/09/2025 Patient has chronic kidney disease 07/09/2025 Patient has chronic kidney disease 07/09/2025 Weekly blood pressure task 07/12/2025 Weekly blood pressure task 07/12/2025 Patient has chronic kidney disease 07/12/2025 Patient has chronic kidney disease 07/12/2025 Weekly blood pressure task 07/16/2025 Weekly blood pressure task 07/16/2025 Patient has chronic kidney disease 07/16/2025 Patient has chronic kidney disease 07/16/2025 Weekly blood pressure task 07/16/2025 Weekly blood pressure task 07/16/2025 Patient has chronic kidney disease 07/16/2025 Patient has chronic kidney disease 07/16/2025 Weekly blood pressure task 07/17/2025 Weekly blood pressure task 07/17/2025 Patient has chronic kidney disease 07/17/2025 Patient has chronic kidney disease 07/17/2025 Weekly blood pressure task 07/23/2025 Weekly blood pressure task 07/23/2025 Patient has chronic kidney disease 07/23/2025 Patient has chronic kidney disease 07/23/2025 Weekly blood pressure task 07/25/2025 Weekly blood pressure task 07/25/2025 Patient has chronic kidney disease 07/25/2025 Patient has chronic kidney disease 07/25/2025 Weekly blood pressure task 07/25/2025 Weekly blood pressure task 07/25/2025 Patient has chronic kidney disease 07/25/2025 Patient has chronic kidney disease 07/25/2025 Weekly blood pressure task 07/25/2025 Weekly blood pressure task 07/25/2025 Patient has chronic kidney disease 07/25/2025 Patient has chronic kidney disease 07/25/2025 Weekly blood pressure task 07/26/2025 Weekly blood pressure task 07/26/2025 Patient has chronic kidney disease 07/26/2025 Patient has chronic kidney disease 07/26/2025 Assessment Noted Time PHQ-9 Depression Total Score: 14 025 2:41 PM EDT documented as of this encounter Care Teams Electrician Maintenance Relationship Specialty Start Date End Date Amanda Watkins MD [address] [place] [address] PCP - General Family Medicine 04/07/19 Hiro Ram FNP [address] [place] [address] Nurse Practitioner Family Medicine 07/06/23 Raad Arias, PharmD [address] [place] [address] Pharmacist Internal Medicine 10/19/24 [facility] 03/08/25 documented as of this encounter
[2025-07-26 16:07] LABS: MANUAL DIFF FLAG NO
[2025-07-26 16:14] LABS: Hematocrit 37.9 % (37.0-47.0); Hemoglobin 12.2 g/dl (12.0-16.0); Imm Gran Abs Auto 0.04 X10*3/uL (0.00-0.03); Imm Gran Pct Auto 0.7 % (0.0-0.4); Lymphocytes Absolute Auto 1.3 X10*3/uL (1.2-4.9); Mean Corpuscular HGB Conc 32.2 g/dl (31.0-35.0); Mean Corpuscular Hemoglobin 28.4 pg (27.0-33.0); Mean Corpuscular Volume 88.1 fL (80.0-98.0); NRBC Abs Auto 0.000 X10*3/uL (0.0-0.012); NRBC Pct Auto 0.0 /100WBC (0.0-0.2); Platelet Count 209 X10*3/uL (160-400); Red Blood Count 4.30 X10*6/uL (4.20-5.50); White Blood Count 5.5 X10*3/uL (4.8-10.8)
[2025-07-26 16:36] LABS: Anion Gap 13 (12-20); Blood Urea Nitrogen 32 mg/dL (9-16); Calcium 8.9 mg/dL (8.4-10.2); Carbon Dioxide 34 mmol/L (22-29); Chloride 95 mmol/L (96-108); Estimated Glomerular Filt Rate 40; Potassium 4.7 mmol/L (3.3-5.1); Sodium 137 mmol/L (135-145)
[2025-07-26 18:34] LABS: Free T4 (Free Thyroxine) 0.96 ng/dL (0.71-1.85)
--- OUTSIDE RECORDS SUMMARY | 2025-07-26 18:40 | XMS_ITS | Encounter Summary ---
Author Organization [employer] Address [address] [facility] 7t [place] [address] Care Team Providers Care Transcriptionist Name Role Phone Amanda Watkins MD Primary Care Provide r Hiro Ram SURGICAL DENTAL ASSISTANT Unavailable Unavailable Raad Arias PharmD Unavailable [phone] Reason for Visit * Reason Onset Date Comments Durable Medical Equipment 06/21/2025 DME: p remium external urinary catheter Encounter Details Date Type Department Care Team (Late st Contact Info) Description 06/21/2025 Telephone [facility] [address] [place] [address] Amanda Watkins MD [address] [place] [address] Durable Medical Equipment (DME: premium external urinary [...] premium external urinary catheter and sent to [facility] * Telephone Encounter - Jeff Stanford - 06/21/2025 3:18 PM EST Tc from pt son requesting a premium external urinary catheter from [facility] due to pt falling at night to use the bathroom. To be sent to [facility]. Fax number is [phone] documented in this encounter Plan of Treatment Upcoming Encounters Date Type Department Care Team (Late st Contact Info) Description 09/07/2025 3:00 PM EST Office Visit [facility] [address] [place] [phone] Gail Fleming MD [address] [place] [address] 09/21/2025 10:00 AM EST Telemedicine [facility] [address] [place] [phone] Kayley Alanis RN 10/25/2025 2:30 PM EDT Office Visit [facility] [address] [place] [phone] Amanda Watkins MD [address] [place] [address] documented as of this encounter Goals Goal [...] documented as of this encounter Care Teams Transcriptionist Relationship Specialty Start Date End Date Amanda Watkins MD [address] [place] [address] PCP - General Family Medicine 04/07/19 Hiro Ram FNP [address] [place] [address] Nurse Practitioner Family Medicine 07/06/23 Raad Arias, TheaD [address] [place] [address] Pharmacist Internal Medicine 10/19/24 [facility] 03/08/25 documented as of this encounter
--- OUTSIDE RECORDS SUMMARY | 2025-07-26 18:40 | XMS_ITS | Clinical Summary ---
Author Organization [facility] Address [address] [place] [phone] Phone Care Team Providers Care Economics Department Chair Name Role Phone Amanda Watkins MD Primary [...] 07/16/2016, 02/17/2013, Additional history exists Insurance [address] [place] [id number] [facility] ([id number]) [facility] ([id number]) Care Teams Economics Department Chair Relationship Specialty Start Date End Date Amanda Watkins MD [address] [place] [phone] PCP - General Internal Medicine 03/01/23
--- OUTSIDE RECORDS SUMMARY | 2025-07-26 18:40 | XMS_ITS | Patient Health Record ---
Author Organization [facility] Address [address] [facility] [address] [place] [address] Care Team Providers Care Solder Sprayer Name Role Phone Amanda Adame M.D. Primary Care Provider João Woodward Jr Results Component Value Reference Range Notes Pathology Reviewed date:03/21/2025 08:46:31 AM Interpretation: Performing Lab:[facility], [address] [place] [phone] Notes/Report: Reason For Referral No Information Problems Problem Type SNOMED Code ICD Code Onset Dates Problem Status W/U Status Risk Notes Problem Iron deficiency anemia (29194785) Iron deficiency anemia (D50.9) Active confirmed Problem Gastritis (0243820) Gastritis (K29.70) Active confirmed Encounters Encounter Location Date Provider Diagnosis [facility] [place] [address] [place] [id number] 03/06/2025 João Leon Jr [facility] [address] [place] [phone] 03/21/2025 João Leon Jr Plan Of Treatment Next Appt Details Provider Name:João yañez Jr, 07/26/2025 02:15:00 PM, [address] [facility], [address], [place], [address], Insurance Providers Payer Name Payer Address Payer Phone Subscriber Number Group Number Insured Name Patient Relationship to Insured Coverage Start Date Coverage End Date [facility] [address] Attn Claims CARLOS Varma [id number] JP MORGAN Self - patient is the insured
--- OUTSIDE RECORDS SUMMARY | 2025-07-26 18:40 | XMS_ITS | Data Portability ---
Author Organization [facility], Main Office Address [address] [facility] [address] [place] [address] Care Team Providers Care Import Coordination And Production Head Name Role Phone EUGENIA FLOWER - 2ND [...] wbc 6.8 hgn 9.7 hct 31.1 this UNION CONTRACT REPRESENTATIVE spent >30 minutes with assessment, dx, referral, [...] Address Organization Details Recorded Time Depressive disorder 39738656 Active [address], [address], [place], [address], [facility] 4 12:24:02 Atrial fibrillation 93733237 Active [address] LA[address], [place], [address], [facility] 4 12:24:20 Obstructive sleep apnea syndrome 70070640 Active 2023 [address] LA[address], [place], [address], [facility] 4 12:24:31 Asthma 825168590 Active 2023 [address] LA[address], [place], [address], [facility] 4 12:24:36 Hypertensive disorder 70043156 Active [address]23 [address], [place], [address], [facility] 4 12:24:41 Hyperlipidemia 12662679 Active 2023 HOLD[address] LAURENT [address], [place], [address], [facility] 4 12:24:47 Retention of urine 282909394 Active [address]23 [address] LA[address], [place], [address], [facility] 4 12:24:53 Opioid dependence 97141020 Active [address]23 [address], [place], [address], [facility] 4 12:25:08 Diabetes mellitus 51321309 Active [address]23 [address] LA[address], [address], [place], [address], [facility] 4 12:25:14 Congestive heart failure 83794515 Active 2023 [address] LA[address], [place], [address], [facility] [employer] 4 12:25:21 Gastroesophage al reflux disease 291362453 Active 2023 [address] LA[address], [place], [address], [facility] 4 12:25:30 Hypothyroidism 03927314 Active [address]23 [address], [address], [place], [address], [facility] [employer] 4 12:25:37 Cellulitis 433029355 Active [address]23 [address], [place], [address], [facility] [employer] 4 12:26:22 Arterial insufficiency 232164010 Active 2023 [address] LA[address], [address], [place], [address], [facility] [employer] 4 12:26:37 Problem Notes None recorded. Medical Equipment None Reported. Allergies Allergen ID Allergen Name Allergen Category Reaction Reaction Severity Criticality Documentation Date Start Date Code Code System Note Provider Name and Address Organization Details Recorded Time 97459 codeine medicatio n Not available Not available Not available 04/08/2024 2670 RxNorm HOLDEN LAURENT [address], [place], [address], [facility] [employer] 4 12:38:31 Medications Name Sig Start Date [...] Updated DateTime 4 152.4 cm 48.5 kg/m2 560879. 27 g 53 /min 18 /min 98.6 [degF] 98 % 149/77 mm[Hg] Genny Aguilar MD [address] [facility], [address], [place], [address], [facility] 4 21:34:16 Date Recorded Body height Heart rate Respiratory rate Body temperature Oxygen saturation Systolic And Diastolic Provider Name and Address Organization Details Last Updated DateTime 4 152.4 cm 54 /min 18 /min 98.1 [degF] 96 % 175/90 mm[Hg] IBETH PRICE NP [address] [facility], [address], [place], [address], [facility] 4 13:49:23 Date Recorded Body height Body mass index (BMI) Body weight Heart rate Respiratory rate Body temperature Oxygen saturation Systolic And Diastolic Provider Name and Address Organization Details Last Updated DateTime 4 152.4 cm 48.4 kg/m2 230823. 91 g 68 /min 18 /min 98.1 [degF] 96 % 132/72 mm[Hg] Raiza Madsen NP [address] [facility], [address], [place], [address], [facility] 4 08:19:33 Social History Question Answer Notes LastModified by Organizat ion Details LastModified Time Tobacco Smoking Status Never Smoker Genny Aguilar MD [address] [facility], [facility] [address], [place], [address], [facility] 04/11/2024 21:50:08 Do You Have An Advance Directive? Yes Information not available 04/11/2024 What Is Your Code Status? Full Code Information not available 04/11/2024 Where Do You Live? Apartment With Sister, Elevator Access. Information not available 04/11/2024 Legal Guardian? No Information not available 04/11/2024 Do You Have A Medical Power Of Yarn Finisher? Yes Information not available 04/11/2024 What Was [...] ICD10 Code Diagnosis IMO Codes Diagnosis Note [id number] HOLDEN LAURENT [address] [address] 04/08/2024 12:12:39 04/13/2024 15:07:34 Cellulitis 073541199 L03.90 completed antbx for LE cellulitis in ED = did not feel it was recurrence of an acute infectionh /o chronic lymphedema -monitor ss of infection- bacitracin topical to BL legs daily-oxyc odone 5 mg q6h prn for pain Arterial insufficiency 705870837 I77.1 -f/up with vascular per recs needs to be arranged-s ee above Retention of urine 53566 4002 R33.9 unable to urinate since coming from [facility] to facility-w ill order PVR, SC for PVR >400 cc Atrial fibrillation 4943 6004 I48.91 carrying dx-amiodar one 200 mg daily-eliq uis 5 mg bid-monito r HR and bleeding Hypertensive disorder 38 280657 I10 carrying dx-amlodip ine 10 mg daily-leonardo tor BP Depressive disorder 3548 9007 F32.A carrying dx-duloxet ine 20 mg daily-paxi l 40 mg daily-leonardo tor mood and affect-psy ch eval prn Congestive heart failure 09504835 I50.9 carrying dxnot on diuretics- metoprolol 50 mg daily-farx iga 10 mg daily-leonardo tor fluid status closely-da sacha weights Diabetes mellitus 140462 09 E11.9 carrying dxjardianc e was given once in hospital, dont see it on her home med list or dc med list = asked nursing to ask dtr-lantus 65 units HS-monitor accuchecks TID Hypothyroidism 29320727 E03.9 carrying dx-synthro id 50 mcg po in am-TSH/T4 prn Hyperlipidemia 62632411 E78.5 carrying dx-lipitor 80 mg daily Gastroesop hageal reflux disease 216663564 K21.9 carrying dx-omepraz ole 40 mg po daily Obstructiv e sleep apnea syndrome 48597367 G47.33 intermitte nt CPAP use at home Opioid dependence 300458 00 F11.20 -monitor needed support in community- on oxycodone for leg pain = monitor usage and wean as tolerated Dermal mycosis 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 Arterial insufficiency 861588165 I77.1 F/U with vascular as planned.Mo rubén ramos n. Retention of urine 93990 4002 R33.8 Improved, continue to monitor. Atrial fibrillation 4943 6004 I48.0 Rate in good control on amiodarone 200 mg daily and metoprolol 50 mg daily.Cont inue eliquis 5 mg BID for AC.Monitor HR and bleeding risk. Hypertensive disorder 38 336330 I10 Fair control on amlodipine 10 mg daily and metoprolol 50 mg daily.Leonardo tor BP and labs. Depressive disorder 3548 9007 F33.8 Mood good tonight, aside form wanting to go home.Nicanor nue duloxetine 20 mg daily, paroxetine 40 mg daily, trazadone 50 mg at bedtime, and melatonin 5 mg at bedtime.Anthony [place] moodPsych consult prn Congestive heart failure 58633984 I50.32 Appears euvolemic. Continue meds as above and Farxiga 10 mg daily.Leonardo tor resp. status, fluid status, wts and labs. Diabetes mellitus 929688 09 E11.9 In good control since here.Nicanor nue lantus 65 units daily and Farxiga 10 mg daily.Leonardo tor accuchecks TID Hypothyroidism 40885782 E03.8 Continue levothyrox ine 50 mcg dailyMonit or TSH prn. Hyperlipidemia 79021224 E78.49 Continue atorvastat in 80 mg dailyMonit or labs as outpt. Gastroesop hageal reflux disease 229212152 K21.9 No current sxs.Contin ue omeprazole 40 mg dailyMonit or GI sxs. Obstructiv e sleep apnea syndrome 30548731 G47.33 Continue CPAP with sleep.F/U prn. Opioid dependence 478122 00 F11.20 On oxycodone chronicall y.Monitor use and f/u with pcp as planned. Candidiasis of vagina 72 820931 B37.31 Not improving with nystatin.W ill start diflucan 150 mg x 1 and repeat in 1 wk. [id number] IBETH PRICE NP [address] [address] 04/18/2024 08:27:20 04/19/2024 14:02:05 Cellulitis 482254855 L03.116 Improved. now with healing woundsdiph enhydramin [...] BMP x 1 in am Arterial insufficiency 197059986 I77.1 F/U with vascular as planned.Anthony merazRefer to [facility] Wound clinic for outpt. mgmt. upon d/c. Retention of urine 91200 4002 R33.8 Improved, continue to monitor. Atrial fibrillation 4943 6004 I48.0 Rate in good control on amiodarone 200 mg daily and metoprolol 50 mg daily.Cont inue eliquis 5 mg BID for AC.Monitor HR and bleeding risk. Hypertensive disorder 38 503055 I10 Fair control on amlodipine 10 mg [...] [place] moodPsych consult prn Congestive heart failure 13565842 I50.32 Appears euvolemic. Continue meds as above and Farxiga 10 mg daily.Leonardo tor resp. status, fluid status, wts and labs. Diabetes mellitus 250749 09 E11.9 In fair control since here.Nicanor nue lantus 65 units daily and Farxiga 10 mg daily.Leonardo tor accuchecks TID Hypothyroidism 35368564 E03.8 Continue levothyrox ine 50 mcg dailyMonit or TSH prn. Hyperlipidemia 68332100 E78.49 Continue atorvastat in 80 mg dailyMonit or labs as outpt. Gastroesop hageal reflux disease 930831333 K21.9 No current sxs.Contin ue omeprazole 40 mg dailyMonit or GI sxs. Obstructiv e sleep apnea syndrome 12474081 G47.33 Continue CPAP with sleep.F/U prn. Opioid dependence 560346 00 F11.20 On oxycodone chronicall y.Monitor use and f/u with pcp as planned. Candidiasis of vagina 72 687690 B37.31 Not improving with nystatin.D iflucan 150 mg x 1 given, to repeat in 1 wk. [id number] Raiza Madsen NP [address] [address] 04/19/2024 08:18:47 04/20/2024 13:31:13 Cellulitis 369714183 L03.116 resolved with abx in hospitalno w [...] pcp, and wound clinica oupt Arterial insufficiency 083629067 I77.1 F/U with vascular as planned.Re marichuy to [facility] Wound clinic for outpt. mgmt. upon d/c. (referral given)vna services outpt with pcp to follow outpt with wound clinic Retention of urine 12962 4002 R33.8 Improved, continue to monitor. Atrial fibrillation 4943 6004 I48.0 Rate in good control on amiodarone 200 mg daily and metoprolol 50 mg daily.Cont inue eliquis 5 mg BID for AC.Monitor outpt with pcp and cardiology outpt Hypertensive disorder 38 416562 I10 hospital dc'd losartan 50 mg po [...] outptPsych consult prn outpt Congestive heart failure 66160944 I50.32 Appears euvolemic. Continue meds as above and Farxiga 10 mg daily.Leonardo tor outpt with pcp Diabetes mellitus 773400 09 E11.9 In fair control since here. 100-200s? if higher 200s related to infectiona lso glipizide and metformin was dc in hosp for ckd, monitor for need to add with pcp outptConti nuelantus 65 units dailyFarxi ga 10 mg daily.Leonardo tor accuchecks TID at home and bring log to pcp on 04/26/24. Hypothyroidism 50460892 E03.8 Continuele vothyroxin e 50 mcg dailyMonit or TSH prn outpt withpcp Hyperlipidemia 07683154 E78.49 Continue atorvastat in 80 mg dailyMonit or labs as outpt. Gastroesop hageal reflux disease 187745913 K21.9 No current sxs.Contin ueomeprazo le 40 mg dailyMonit or GI sxs. outpt with pcp Obstructiv e sleep apnea syndrome 35150778 G47.33 Continue CPAP with sleep.F/U prn outpt prn Opioid dependence 674669 00 F11.20 On oxycodone chronicall y.will cont on home dose and since on chronicall y will not send with any additional oxycodoneM onitor use and f/u with pcp as planned outpt Candidiasis of vagina 72 576336 B37.31 Not improving with nystatin.D iflucan 150 mg x 1 given at rehabmonit or with pcp outpt Chronic ki dney disease 242936920 N18.9 ckd per hosp paperwork with meds adjusted:g lipizide, losartan, furosemide , and metformin were dc'dlabs as above stablemoni tor labs and need to adjust outpt with pcp Pain in le ft lower limb 387033680 M79.605 gilbert was ready for discharge and now reporting left lower leg pain and states she can't put weight on itwhen attempting to get dressed for homefamily refuses therapy eval and xray here,famil y requests 911 call, and emergent evaluation at [facility] Health Concerns Section Related Observation LastModified by Organization Detai ls LastModified Time None Recorded Concern Status LastModified by Organization Details LastModified Time None Recorded Advance Directives Directive Y: Payers Insurance Date Sequence Insurance Name Policy Number Policy Meza Covered Member ID Meza Member ID Guarantor Name 04/19/[address] [facility] - DOS ON OR AFTER 2022 - MEDICARE ADVANTAGE [place] (MEDICARE REPLACEMENT/ADV ANTAGE - PPO) Mary Lou Cisneros [id number] Mary Lou Cisneros Notes Date Note Type Note Provider Name and Address Organization Details Recorded Time 04/08/2024 text/html Patient is a 73 yo female being seen for initial intake visit. She presented to [facility] for eval of left leg pain. She [...] PT and was recommended for transfer to [facility] for continued care and rehab. On arrival from hospital patient reporting to nursing that she hasnt urinated. No report of this occurring while she was at [facility] and she did not have a [...] opiate dependence, hld, htn, DM REBECA SOTOMAYOR, UNION CONTRACT REPRESENTATIVE-C [address] [place] [address], [address], [place], [address], [facility] 04/08/2024 13:05:26 04/11/2024 text/html This is a 73 yo woman who is here for rehab after an ED visit for left leg pain after recovery from recent cellulitis.[facility] txed with [...] for most activities.I see her with a turkmen speaking staff member.She is in bed, wakes [...] OA, OP, and fibromyalgia. Genny Aguilar MD [address] [place] [address], [address], [place], [address], [facility] [employer] 04/14/2024 20:04:50 04/18/2024 text/html This is a 73 yo woman who is here for rehab after an ED visit for left leg pain after recovery from recent cellulitis.[facility], txed with [...] OP, and fibromyalgia. IBETH PRICE, OSITO [address] [facility], [address], [place], [address], [facility] 04/18/2024 14:21:33 04/19/2024 text/html This is a [...] note per records:She [facility], txed with [...] outpt with pcp She was transferred to [facility] for rehab on 04/08 and working with rehab showing improvement and felt she is stable to discharge home. Vitals stable here and BP labile, last at 132/72 this am. While at [facility] she was seen by the wound team [...] 2024. She will be picked up by [facility] @ 1:00 PM. A referral has been made to [facility] for ongoing skilled services. She will [...] 2024. She will be picked up by [facility] @ 1:00 PM. A referral has been made to [facility] for ongoing skilled services. She will [...] she goes home from ER. discussed with sccm administrator at facility Raiza Madsen NP [address] [facility] [address], [address], [place], [address], [facility] [employer] 04/19/2024 13:13:44 OBGyn Episode No OBEpisode recorded.
--- OUTSIDE RECORDS SUMMARY | 2025-07-26 18:40 | XMS_ITS | Encounter Summary ---
Author Organization [employer] Address [address] [place] [address] 7t [place] [address] Care Team Providers Care Reel Film Inspector Name Role Phone Amanda Watkins MD Primary Care Provide r Hiro Ram PIER HAND HELPER Unavailable Unavailable Raad Arias PharmD Unavailable [phone] Encounter Details Date Type Department Care Team ([facility] st Contact Info) Description 09/06/2024 Orders Only [facility] CHC MED & PEDS [address] [place], [place] [phone] MiltonWaldemar Chance MD [address] [place] [address] Social History Tobacco Use Types Packs/Day Years [...] Description 09/07/2025 3:00 PM EST Office Visit [address] [address] Gail Fleming MD [address] [place] [address] 09/21/2025 10:00 AM EST Telemedicine [address] [address] Kayley Alanis RN 10/25/2025 2:30 PM EDT Office Visit [address] [address] Amanda Watkins MD [address] [place] [address] documented as of this encounter Visit Diagnoses Not on filedocumented in this encounter Additional Health Concerns Assessment Noted Time PHQ-9 Depression Total Score: 0 09/01/19 25 1:18 PM EST documented as of this encounter Care Teams Reel Film Inspector Relationship Specialty Start Date End Date Amanda Watkins MD [address] [place] [phone] PCP - General Family Medicine 04/07/19 Hiro Ram FNP [address] [place] [address] Nurse Practitioner Family Medicine 07/06/23 Raad Arias, PharmD [address] [place] [address] Pharmacist Internal Medicine 10/19/24 Ja [facility] 08/10/24 03/12/25 [facility] 03/08/25 documented as of this encounter
--- OUTSIDE RECORDS SUMMARY | 2025-07-26 18:40 | XMS_ITS | Encounter Summary ---
Author Organization [employer] Address [address] [facility] 7t [place] [address] Care Team Providers Care Block Out Machine Operator Name Role Phone Amanda Watkins MD Primary Care Provide r Hiro Ram PORCELAIN ENAMELING SUPERVISOR Unavailable Unavailable Raad Arias PharmD Unavailable [phone] Reason for Visit * Reason Onset Date Comments Hospital Follow-up 08/16/2024 Encounter Details Date Type Department Care Team (Late st Contact Info) Description 08/16/2024 Telephone [facility] MEDICINE [address] [place] [address] Amanda Watkins MD [address] [place], [place] [phone] Hospital Follow-up Social History Tobacco Use Types [...] (water in the lungs) *Send message to [place] Clinical Care Coordinators documented in this encounter Plan of Treatment Upcoming Encounters Date Type Department Care Team (Late st Contact Info) Description 09/07/2025 3:00 PM EST Office Visit [facility] MEDICINE [address] [place] [address] Gail Fleming MD [address] [place] [address] 09/21/2025 10:00 AM EST Telemedicine [address] [address] Kayley Alanis RN 10/25/2025 2:30 PM EDT Office Visit [address] [address] Amanda Watkins MD [address] [place] [address] documented as of this encounter Visit Diagnoses Not on filedocumented in this encounter Additional Health Concerns Assessment Noted Time PHQ-9 Depression Total Score: 10 024 3:23 PM EDT documented as of this encounter Care Teams Block Out Machine Operator Relationship Specialty Start Date End Date Amanda Watkins MD [address] [place] [phone] PCP - General Family Medicine 04/07/19 Hiro Ram FNP [address] [place] [address] Nurse Practitioner Family Medicine 07/06/23 Raad Arias, TheaD [address] [place] [address] Pharmacist Internal Medicine 10/19/24 [facility] 07/03/22 08/16/24 [facility] 08/10/24 03/12/25 [facility] 03/08/25 documented as of this encounter
--- OUTSIDE RECORDS SUMMARY | 2025-07-26 18:40 | XMS_ITS | Encounter Summary ---
Author Organization [employer] Address [address] [facility] 7t [place] [address] Care Team Providers Care Personal Shopper Name Role Phone Amanda Watkins MD Primary Care Provide r Hiro Ram PACKAGING COORDINATOR Unavailable Unavailable Raad Arias PharmD Unavailable [phone] Reason for Visit * Reason Comments Med Refill Encounter Details Date Type Department Care Team (Late st Contact Info) Description 10/16/2024 Refill [facility] CHC MED & PEDS [address] [place] [address] Amanda Watkins MD [address] [place] [address] Chronic bilateral low back pain with bilateral [...] Description 09/07/2025 3:00 PM EST Office Visit [address] [address] Gail Fleming MD [address] [place] [address] 09/21/2025 10:00 AM EST Telemedicine [address] [address] Kayley Alanis RN 10/25/2025 2:30 PM EDT Office Visit [address] [address] Amanda Watkins MD [address] [place] [phone] documented as of this encounter Visit Diagnoses Diagnosis Chronic bilateral low back pain with bilateral sciatica documented in this encounter Additional Health Concerns Assessment Noted Time PHQ-9 Depression Total Score: 0 09/01/19 25 1:18 PM EST documented as of this encounter Care Teams Personal Shopper Relationship Specialty Start Date End Date Amanda Watkins MD [address] [place] [phone] PCP - General Family Medicine 04/07/19 Hiro Ram FNP [address] [place] [phone] Nurse Practitioner Family Medicine 07/06/23 Raad Arias, TheaD [address] [place] [phone] Pharmacist Internal Medicine 10/19/24 [facility] 08/10/24 03/12/25 [facility] 03/08/25 documented as of this encounter
--- OUTSIDE RECORDS SUMMARY | 2025-07-26 18:40 | XMS_ITS | Encounter Summary ---
Author Organization [email or web address] Address [address] [facility] 7t [place] [address] Care Team Providers Care Inspector [employer] Name Role Phone Amanda Watkins MD Primary Care Provide r Hiro Ram FINISHING POWDER PRESS OPERATOR Unavailable Unavailable Raad Arias PharmD Unavailable [phone] Reason for Visit * Reason Comments Med Refill Encounter Details Date Type Department Care Team (Late st Contact Info) Description 02/11/2024 Refill [facility] MEDICINE [address] [place] [address] Amanda Watkins MD [address] [place], [place] [phone] Type 2 diabetes mellitus with other specified complication, unspecified whether watermaster insulin use ([facility]) Social History Tobacco Use Types [...] Description 09/07/2025 3:00 PM EST Office Visit [address] [address] Gail Fleming MD [address] [place] [address] 09/21/2025 10:00 AM EST Telemedicine [address] [address] Kayley Alanis RN 10/25/2025 2:30 PM EDT Office Visit [facility] MEDICINE [address] [place] [phone] Amanda Watkins MD [address] [place] [address] documented as of this encounter Visit Diagnoses Diagnosis Type 2 diabetes mellitus with other specified complication, unspecified whether residential insulin use (HCC) documented in this encounter Additional Health Concerns Assessment Noted Time PHQ-9 Depression Total Score: 10 024 3:23 PM EDT documented as of this encounter Care Teams Inspector [employer] Electronics Relationship Specialty Start Date End Date Amanda Watkins MD [address] [place] [phone] PCP - General Family Medicine 04/07/19 Hiro Ram FNP [address] [place] [address] Nurse Practitioner Family Medicine 07/06/23 Raad Arias, TheaD [address] [place] [phone] Pharmacist Internal Medicine 10/19/24 [facility] 07/03/22 08/16/24 Ja [facility] 08/10/24 03/12/25 [facility] 03/08/25 documented as of this encounter
--- OUTSIDE RECORDS SUMMARY | 2025-07-26 18:40 | XMS_ITS | Clinical Summary ---
Author Organization [employer] Address [address] [place] [address] [address] [place] [address] Care Team Providers Care Construction Carpenter Name Role Phone Amanda Watkins MD Primary Care Provide r Hiro Ram WAX ENGRAVER Unavailable Unavailable Raad Arias PharmD Unavailable [phone] Allergies Active Allergy Reactions Criticality Noted Date [...] tablet 1 023 Active FREESTYLE LITE test stripIndications :Type 2 diabetes mellitus with hyperglycemia, with long-term current use of insulin (HCC) Use to test blood sugar 3 times daily 100 each 12 07/04/20 25 5:01 PM EST 024 2024 Active Blood Glucose Monitoring Suppl (FreeStyle Emma Lite) w/Device kitIndications:T ype 2 diabetes mellitus with hyperglycemia, with long-term current use of insulin (HCC) Use to test blood sugar 3 times daily 1 kit 024 Active acetaminophen (Acetaminophen 8 Hour) 650 MG ER tablet Take 650 mg by mouth every 8 (eight) hours if needed for mild pain. Do not crush, chew, or split. Active omeprazole (PriLOSEC) [address] capsuleIndicatio ns:Epigastric pain TAKE 1 CAPSULE BY MOUTH EVERY MORNING BEFORE BREAKFAST. DO NOT BREAK, CRUSH, DISSOLVE OR CHEW 30 capsule 07/26/20 6:08 PM EST 025 Active hydrOXYzine HCl (Atarax) 25 MG tablet Take 1 tablet (25 mg) by mouth every 8 (eight) hours if needed for anxiety. 90 tablet 025 Active insulin degludec (Tresiba FlexTouch) 200 UNIT/ML injectionIndicat ions:Type 2 diabetes mellitus with hyperglycemia, with long-term current use of insulin ([facility]) Inject 64 units under the skin daily 18 mL 07/26/20 6:08 PM EST 025 Active traZODone (Desyrel) 150 MG tabletIndication s:Recurrent major depressive episodes, mild (CMS/HCC) Take 1 tablet (150 mg) by mouth at bedtime. 90 tablet 2 025 Active TRUEplus Lancets 33G miscIndications: Type 2 diabetes mellitus with hyperglycemia, with long-term current use of insulin ([facility]) USE DIRECTED TO TEST BLOOD SUGAR THREE TIMES DAILY 100 each 5 07/26/20 6:08 PM EST 025 Active Eye Itch Relief 0.035 % solutionIndicati ons:Allergic conjunctivitis of both eyes INSTILL 1 DROP AFFECTED EYE(S) EVERY TWELVE HOURS NEEDED 10 mL 1 025 Active Oyster Shell Calcium 500 MG tablet TAKE 1 TABLET BY MOUTH TWICE DAILY IN THE MORNING AND AT BEDTIME 180 tablet 1 025 Active albuterol (2.5 MG/3ML) 0.083% nebulizer [...] tablet 025 Active lidocaine (Lidoderm) 5 % patchIndications :Primary osteoarthritis, right shoulder Apply 1 patch topically Once per day. Remove & discard patch within 12 hours or as directed by . 30 patch 1 025 Active ketoconazole (NIZOral) 2 % shampooIndicatio ns:Seborrheic dermatitis Apply topically 2 (two) times a week. 120 mL 2 025 Active amLODIPine (Norvasc) 5 MG tablet TAKE 1 TABLET BY MOUTH EVERY MORNING 30 tablet 3 07/26/20 25 6:08 PM EST 025 Active Alcohol Swabs (Alcohol Prep) 70 % padsIndications: Type 2 diabetes mellitus with hyperglycemia ([facility]) USE DIRECTED TO TEST BLOOD SUGAR THREE TIMES DAILY 100 each 07/26/20 25 6:08 PM EST 025 Active Continuous Glucose Vocational Director (FreeStyle Mickey 3 [place]ide) deviceIndication s:Type 2 diabetes mellitus with diabetic autonomic neuropathy, with long-term current use of insulin ([facility]) 1 each Once per day. Use as directed for CGM 1 each 025 Active Continuous Glucose Sensor (FreeStyle Mickey 3 Plus Sensor) miscIndications: Type 2 diabetes mellitus with diabetic autonomic neuropathy, with long-term current use of insulin ([facility]) 1 each every 15 days. Apply 1 every 15 days as directed for CGM 2 each 07/04/20 25 5:01 PM EST 025 Active atorvastatin (Lipitor) 80 MG tablet TAKE 1 TABLET BY MOUTH AT BEDTIME 90 tablet 1 Active Diclofenac Sodium 1 % gelIndications:D egenerative arthritis of thumb, right Apply 1 Application topically every 12 (twelve) hours if needed (apply if needed). 150 g 1 025 Active docusate sodium (Colace) 100 MG capsuleIndicatio ns:Slow transit constipation TAKE 1 CAPSULE BY MOUTH TWICE DAILY 60 capsule 3 07/26/20 25 6:08 PM EST 025 Active Eliquis 5 MG tabletIndication s:Atrial fibrillation, unspecified type (CMS/HCC) (HCC) TAKE 1 TABLET BY MOUTH TWICE DAILY IN THE MORNING AND AT BEDTIME 60 tablet 2 025 Active melatonin 5 MG tabletIndication s:Primary insomnia Take 1 tablet (5 mg) by mouth at bedtime. 90 tablet Active pen needle 32G x 4 mm miscIndications: Type 2 diabetes mellitus with hyperglycemia, with long-term current use of insulin ([facility]) Use daily with insulin 100 each 3 07/04/20 25 5:01 PM EST 2025 Active Mounjaro 7.5 MG/0.5ML solution auto-injectorInd ications:Type 2 diabetes mellitus with hyperglycemia, with long-term current use of insulin ([facility]) INJECT ONE PEN (=7.5MG) SUBCUTANEOUSLY ONCE A WEEK DIRECTED 2 mL 1 07/26/20 6:08 PM EST Active DULoxetine (Cymbalta) [address] capsule TAKE 1 CAPSULE BY MOUTH EVERY MORNING 30 capsule 1 07/26/20 6:08 PM EST Active oxyCODONE-acetam inophen (Percocet) 5-325 MG tabletIndication s:Chronic bilateral low back pain with bilateral sciatica TAKE 1 TABLET EVERY 6 HOURS NEEDED FOR SEVERE PAIN 112 tablet 07/26/20 6:08 PM EST Active gabapentin (Neurontin) 400 MG capsule Take 1 capsule by mouth 3 times daily. in morning, evening and bedtime Active furosemide (Lasix) 40 MG tablet Take 1 tablet (40 mg) by mouth 2 times daily. 180 tablet Active Ferrocite 324 MG tabletIndication s:Stage 3b chronic kidney disease (CMS/HCC) ([facility]) Take 1 tablet by mouth Once per day. 30 tablet 2 07/26/20 6:08 PM EST Active carbamide peroxide (Debrox) 6.5 % otic solutionIndicati ons:Excessive cerumen in ear canal, right Administer 5-10 drops into affected ear(s) 2 times daily for 4 days. 30 mL 07/26/20 6:08 PM EST 025 2024 Active pen needle 32G x 4 mm miscIndications: Type 2 diabetes mellitus with hyperglycemia, with long-term current use of insulin ([facility]) Use daily with insulin 100 each 3 2024 Discontinued(R eorder (will not trigger notification to Pharmacy)) Ferrocite 324 MG tablet Take 1 tablet by mouth Once per day. 025 2024 Discontinued(R eorder (will not trigger notification to Pharmacy)) gabapentin (NEURONTIN) 400 MG tabletIndication s:Chronic pain of both shoulders Take 1 tablet (400 mg) by mouth 3 times daily. 90 tablet 2 025 2024 Discontinued(D uplicate order (will not trigger notification to Pharmacy)) Tirzepatide (Mounjaro) 7.5 MG/0.5ML solution auto-injectorInd ications:Type 2 diabetes mellitus with hyperglycemia, with long-term current use of insulin (HCC) Inject 7.5 mg under the skin 1 (one) time per week. 2 mL 1 07/04/20 25 5:01 PM EST 2024 Discontinued torsemide (Demadex) 20 MG tablet TAKE 1 TABLET BY MOUTH EVERY MORNING 30 tablet 3 07/04/20 25 5:01 PM EST 2024 Discontinued(M ed list cleanup (will not trigger notification to Pharmacy)) DULoxetine (Cymbalta) [address] capsule TAKE 1 CAPSULE BY MOUTH EVERY MORNING 30 capsule 1 07/04/20 25 5:01 PM EST 025 2024 Discontinued oxyCODONE-acetam inophen (Percocet) 5-325 MG tabletIndication s:Chronic bilateral low back pain with bilateral sciatica Take 1 tablet by mouth every 6 (six) hours if needed for severe pain for up to 28 days. 112 tablet 025 2024 Discontinued melatonin 5 MG tabletIndication s:Primary insomnia TAKE 1 TABLET BY MOUTH AT BEDTIME 90 tablet 07/04/20 25 5:01 PM EST 2024 Discontinued(D uplicate order (will not trigger notification to Pharmacy)) furosemide (Lasix) 40 MG tablet Take 1 tablet by mouth 2 times daily. 025 2024 Discontinued(R eorder (will not trigger notification to Pharmacy)) Active Problems Problem Noted Date Diagnosed Date Acute on chronic heart failu re with preserved ejection fraction (HFpEF) 07/26/2025 Excessive cerumen in ear canal, right 07/26/2025 Venous stasis ulcer of calf (CMS/HCC) 07/16/2025 Degenerative arthritis of thumb, right Assessment & [...] Assessment & Plan (09/14/2024 6:46 PM EST): [employer] referral done today I advised not to [...] for patient Stage 3b chronic kidney disease ([facility]) 2023 Arthritis 04/24/2024 Bronchitis 04/24/2024 Obesity 04/24/2024 Atrial fibrillation ([facility]) 04/08/2024 Assessment & Plan (02/15/2025 [...] (12/06/2023 2:13 PM EDT): I will follow [facility] instructions and I will change [...] medications every day I advised low-sodium diet [employer] referral done today I advised to monitor [...] retiring, patient will be transferred to new [facility] psychiatric provider. Patient is aware that appointments will be via televisit. Any issues or concerns contact [facility]. All her questions were answered and [...] advise low-sodium diet I advised weight reduction [employer] referral done Assessment & Plan (12/06/2023 2:12 [...] and excersise -patient will be refer to blind escort - Continue current medications, I can not [...] Encounters Date Type Department Care Team Description 07/26/2025 2:00 PM EST Office Visit [facility] [address] [place] [address] Amanda Watkins MD Essential (primary) hypertension; Chronic diastolic congestive heart failure (HCC); Type 2 diabetes mellitus with hyperglycemia, with long-term current use of insulin (HCC); Stage 3b chronic kidney disease (CMS/HCC) (HCC); Acute on chronic heart failure with preserved ejection fraction (HFpEF) (HCC); Excessive cerumen in ear canal, right; Depression with anxiety 07/26/2025 Orders Only GENERIC EXTERNAL DATA DEPARTMENT Provider, Generic External Data 07/26/2025 Travel 07/25/2025 Refill [facility] [address] [place] [address] Sia Leon, PharmD 07/25/2025 Telephone [facility] [address] [place] [address] Amanda Watkins MD Chart Prep 07/20/2025 Refill [facility] [address] [place] [address] Amanda Watkins MD Chronic bilateral low back pain with bilateral sciatica 07/17/2025 Telephone [facility] [address] [place] [address] Amanda Watkins MD Durable Medical Equipment (DME: LMN) 07/12/2025 Patient Outreach [facility] [address] [place] [phone] Amanda Watkins MD Transition Of Care (Tcm) (HDF- scheduled and SDOH screening completed on 02/15/2025) 07/12/2025 Refill [facility] [address] [place] [address] Amanda Watkins MD 07/10/2025 Refill [facility] [address] [place] [address] Amanda Watkins MD Type 2 diabetes mellitus with hyperglycemia, with long-term current use of insulin ([facility]) 07/08/2025 Orders Only [facility] External Provider, [facility] 07/03/2025 Refill [facility] [address] [place] [address] Amanda Watkins MD Type 2 diabetes mellitus with hyperglycemia, with long-term current use of insulin ([facility]) 07/02/2025 Telephone [facility] [address] [place] [phone] Amanda Watkins MD Nurse Triage 06/29/2025 Telephone [facility] [address] [place] [phone] Amanda Watkins MD letter of medical necessity 06/26/2025 Telephone [facility] [address] [place] [phone] Amanda Watkins MD Prior Authorization (PA: Lidocaine 5% Patch) 06/26/2025 Patient Outreach [facility] [address] [place] [phone] Amanda Watkins MD 06/21/2025 Telephone [facility] [address] [place] [phone] Amanda Watkins MD Durable Medical Equipment (DME: premium external urinary catheter) 06/21/2025 Refill [facility] [address] [place] [phone] Amanda Watkins MD Primary insomnia 06/20/2025 Refill [facility] [address] [place] [phone] Amanda Watkins MD Primary insomnia 06/16/2025 Refill [facility] [address] [place] [address] [phone] Amanda Watkins MD Atrial fibrillation, unspecified type (CMS/HCC) (HCC) 06/13/2025 Orders Only GENERIC EXTERNAL DATA DEPARTMENT Provider, Generic External Data 06/12/2025 Orders Only GENERIC EXTERNAL DATA DEPARTMENT Provider, Generic External Data 06/11/2025 Orders Only GENERIC EXTERNAL DATA DEPARTMENT Provider, Generic External Data 06/08/2025 2:00 PM EDT Telemedicine [address] [phone] Kayley Alanis, RN Long-term current use of opiate analgesic 06/08/2025 Refill [facility] [address] [place] [address] Kayley Alanis RN Chronic bilateral low back pain with bilateral sciatica 06/08/2025 Travel 06/05/[address] [phone] Amanda Watkins MD Call Back Request 06/04/2025 Patient Outreach [facility] [address] [place] [address] Amanda Watkins MD 06/03/2025 Orders Only GENERIC EXTERNAL DATA DEPARTMENT Provider, Generic External Data 05/31/2025 Telephone [facility] [address] [place] [phone] Kayley Alanis RN Schedule 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 05/30/2025 Orders Only GENERIC EXTERNAL DATA DEPARTMENT Provider, Generic External Data 05/29/2025 Orders Only GENERIC EXTERNAL DATA DEPARTMENT Provider, Generic External Data 05/29/[address] [phone] Amanda Watkins MD Med Refill 05/28/2025 Refill [facility] [address] [place] [phone] Amanda Watkins MD Chronic bilateral low back pain with bilateral sciatica 05/25/2025 Refill [facility] [address] [place] [address] Amanda Watkins MD Chronic bilateral low back pain with bilateral sciatica (Primary Dx) 05/24/2025 Refill [facility] [address] [place] [phone] Amanda Watkins MD 05/16/2025 Refill [facility] [address] [place] [phone] Amanda Watkins MD Type 2 diabetes mellitus with diabetic autonomic neuropathy, with long-term current use of insulin ([facility]); Slow transit constipation 05/08/2025 10:15 AM EDT Office Visit [facility] [address] [place] [phone] Amanda Watkins MD Fibromyalgia (Primary Dx); Degenerative arthritis of thumb, right; Chronic pain of both shoulders; Type 2 diabetes mellitus with hyperglycemia, with long-term current use of insulin ([facility]) 05/08/2025 Travel 05/07/2025 Telephone [facility] [address] [place] [phone] Amanda Watkins MD 05/07/2025 Telephone [facility] [address] [place] [phone] Amanda Watkins MD Chart Prep 05/07/2025 Refill [facility] [address] [place] [phone] Amanda Watkins MD 05/04/2025 Telephone [facility] [address] [place] [phone] Amanda Watkins MD Medication Question 04/30/2025 Telephone [facility] [address] [place] [phone] Amanda Watkins MD Appointment Request from Last 3 Months Immunizations Immunization Administration [...] Mass Index 44.25 07/26/2025 1:49 PM EST Plan of Treatment Upcoming Encounters Date Type Department Care Team (Late st Contact Info) Description 09/07/2025 3:00 PM EST Office Visit [address] [address] Gail Fleming MD [address] [place] [phone] 09/21/2025 10:00 AM EST Telemedicine [address] [address] Kayley Alanis RN 10/25/2025 2:30 PM EDT Office Visit [address] [address] Amanda Watkins MD [address] [place] [address] [phone] Health Maintenance Due Date Last Done Comments [...] 2025 , 07/08/2018, 09/30/2017, Additional history exists Lipid Panel 09/01/2025 09/01/2024, 08/04/2021 Depression Monitoring 09/14/2025 03/14/2025, 025 Diabetes: Hemoglobin A1C 10/24/2025 025, 05/08/2025, 03/29/2025, Additional history exists Alcohol/Substance Use Screening 02/15/2026 02/15/2025 SDOH Screening 02/15/2026 02/15/2025 Tobacco Screening 07/26/2026 07/26/2025 Hepatitis B Vaccines Completed 06/07/2007, 11/01/2006, 03/12/2006 [...] has chronic kidney disease No Ann Farley, Carlos Weekly blood pressure task Care Plan Weekly blood pressure task No Ann Farley PharmD Patient has chronic kidney disease Care Plan Patient has chronic kidney disease No Ann Farley PharmD Weekly blood pressure task Care Plan Weekly blood pressure task No Stanford, Jeff Weekly blood pressure task Care Plan Weekly blood pressure task No Stanford, Jeff Patient has chronic kidney disease Care Plan Patient has chronic kidney disease No Stanford, Jeff Patient has chronic kidney disease Care Plan Patient has chronic kidney disease No Abdoulaye Jeff Weekly blood pressure task Care Plan [...] Plan Weekly blood pressure task No Luis Sánhcezilda Patient has chronic kidney disease Care Plan Patient has chronic kidney disease No Luis Sánchezilda Patient has chronic kidney disease Care Plan Patient has chronic kidney disease No Benji Sáncheza Weekly blood pressure task Care Plan Weekly [...] Plan Patient has chronic kidney disease No aVlery Manzanares Patient has chronic kidney disease Care Plan Patient has chronic kidney disease No Valery Manzanares Weekly blood pressure task Care Plan Weekly blood pressure task No Amanda Watkins MD Weekly blood pressure task Care Plan Weekly blood pressure task No Amanda Watkins MD Patient has chronic kidney disease Care Plan Patient has chronic kidney disease No Amnada Watkins MD Patient has chronic kidney disease [...] blood pressure task No Sia Leon, PharmD Weekly blood pressure [...] chronic kidney disease No Keila Tinsley MA Procedures Procedure Name Priority Date/Time Associated Diagnosis Comments T4, FREE Routine 07/26/2025 2:37 PM EST BASIC METABOLIC PANEL Routine 07/26/2025 2:37 PM EST CBC WITH AUTO DIFFERENTIAL Routine 07/26/2025 2:37 PM EST Anemia, unspecified type TSH W/REFLEX TO FT4 Routine 07/26/2025 2 :37 PM EST Acquired hypothyroidism POCT GLYCATED HEMOGLOBIN, TOTAL Routine 07/26/2025 1:59 PM EST Type 2 diabetes mellitus with hyperglycemia, with long-term current use of insulin (HCC) POCT GLUCOSE Routine 07/26/2025 1:59 PM EST Type 2 diabetes mellitus with hyperglycemia, with long-term current use of insulin (HCC) US VENOUS DUPLEX LE RT Routine 07/08/2025 4:[address] CHEST WO CONTRAST Routine 07/08/2025 4:[address] ABDOMEN PELVIS WO CONTRAST Routine 07/08/2025 4:01 PM EST LOWER EXTREMITY VENOUS DUPLEX LEFT Routine 07/08/2025 2:06 PM EST LACTIC ACID Routine 07/08/2025 1:54 PM EST XR CHEST 1 VIEW Routine 07/08/2025 1:12 PM EST GLUCOSE, WHOLE BLOOD Routine 06/13/2025 7:14 AM EST URINALYSIS, COMPLETE, WITH REFLEX TO CULTURE Routine 06/13/2025 6:31 AM EST URINALYSIS WITH REFLEX MICROSCOPIC Routine 06/13/2025 6:31 AM EST GLUCOSE, WHOLE BLOOD Routine 06/13/2025 5:59 AM EST GLUCOSE, WHOLE BLOOD Routine 06/12/2025 6:54 PM EST HIGH SENSITIVITY TROPONIN I Routine 06/12/2025 6:34 PM EST XR KNEE 4+ VIEWS RIGHT Routine 06/12/2025 5:47 PM EST GLUCOSE, WHOLE BLOOD Routine [...] EDT XR WRIST 3+ VIEWS LEFT Routine 06/03/2025 11:35 AM EDT HIGH SENSITIVITY TROPONIN I Routine 06/03/2025 10:06 AM EDT BASIC METABOLIC PANEL Routine 06/03/2025 10:06 AM EDT HEPATIC FUNCTION PANEL Routine 06/03/2025 10:06 AM EDT CBC WITH AUTO DIFFERENTIAL [...] hyperglycemia, with long-term current use of insulin ([facility]) POCT GLUCOSE Routine 05/08/2025 10:52 AM EDT Type 2 diabetes mellitus with hyperglycemia, with long-term current use of insulin ([facility]) LIPID PANEL, STANDARD Routine 09/01/2024 2:09 PM EST ALBUMIN, RANDOM URINE W/CREATININE Routine 08/04/2021 10:15 AM EST from Last 3 Months or Most Recently Relevant to Health Maintenance Results * (ABNORMAL) TSH W/Reflex to FT4 (07/26/2025 2:37 PM EST) TSH reflex Free T4 12.25(H) 0.32 - 4.0 uIU/mL [facility] Blood Venous blood specimen / Unknown 07/26/2025 2:37 PM EST 07/26/2025 4:00 PM EST Waldemar Wilburn MD LAB BLOOD ORDERABL ES Final Result [facility] [address] [place] [phone] * (ABNORMAL) CBC auto differential (07/26/2025 2:37 PM EST) Only the most recent of3 resultswithin the time period is included. Pathologist [facility] White Blood Count 5.5 4.8 - 10.8 X10*3/uL [facility] Red Blood Count 4.30 4.20 - 5.50 X10*6/uL [facility] Hemoglobin 12.2 12.0 - 16.0 g/dl [facility] Hematocrit 37.9 37.0 - 47.0 % [facility] Mean Corpuscular Volume 88.1 80.0 - 98.0 fL [facility] Mean Corpuscular Hemoglobin 28.4 27.0 - 33.0 pg [facility] Mean Corpuscular HGB Conc 32.2 31.0 - 35.0 g/dl [facility] Red Cell Distribution Width 14.5 11.0 - 16.0 % [facility] Platelet Count 209 160 - 400 X10*3/uL [facility] Mean Platelet Volume 11.4 9.4 - 12.3 fL [facility] Neutrophils Percent Auto 64.5 45 - 73 % [facility] Imm Gran Pct Auto 0.7(H) 0.0 - 0.4 % [facility] Lymphocytes Percent Auto 23.5 20 - 40 % [facility] Monocytes Percent Auto 6.8 2 - 11 % [facility] Eosinophils Percent Auto 3.8 0 - 4 % [facility] Basophils Percent Auto 0.7 0 - 2 % [facility] NRBC Pct Auto 0.0 0.0 - 0.2 /100WBC [facility] Neutrophils Absolute Auto 3.5 2.0 - 8.3 x10*3/uL [facility] Imm Gran Abs Auto 0.04(H) 0.00 - 0.03 X10*3/uL [facility] Lymphocytes Absolute Auto 1.3 1.2 - 4.9 X10*3/uL [facility] Monocytes Absolute Auto 0.4 0.1 - 1.2 X10*3/uL [facility] Eosinophils Absolute Auto 0.2 0.0 - 0.4 X10*3/uL [facility] Basophils Absolute Auto 0.0 0.0 - 0.2 X10*3/uL [facility] NRBC Abs Auto 0.000 0.0 - 0.012 X10*3/uL [facility] Blood Venous blood specimen / Unknown 07/26/2025 2:37 PM EST 07/26/2025 4:00 PM EST us Amanda Myers MD LAB BLOOD ORDERABLES Final Result [facility] [address] [place] [phone] * T4, Free (07/26/2025 2:37 PM EST) Free T4 (Free Thyroxine) 0.96 0.71 - 1.85 ng/dL [facility] 07/26/2025 2:37 PM EST 07/26/2025 4:00 PM EST us Waldemar Wilburn MD LAB BLOOD ORDERABL ES Final Result Performing Organization Address [facility] Co de Phone Number [facility] [address] [place] [phone] * (ABNORMAL) Basic Metabolic Panel (07/26/2025 2:37 PM EST) Only the most recent of2 resultswithin the time period is included. Sodium 137 135 - 145 mmol/L [facility] Potassium 4.7 3.3 - 5.1 mmol/L [facility] Chloride 95(L) 96 - 108 mmol/L [facility] Carbon Dioxide 34(H) 22 - 29 mmol/L [facility] Anion Gap 13 12 - 20 [facility] Urea Nitrogen (BUN) 32(H) 9 - 16 mg/dL [facility] Creatinine, Serum 1.30 0.5 - 1.4 mg/dL [facility] Estimated Glomerular Filt Rate 40 [facility] Comment:Chronic Kidney Disea se: Estimated GFR < 60 mL/min/1.76h0Jqlnlh Kidney Disease: Estimated GFR < 15 mL/min/1.73m2 Glucose 343(H) 60 - 115 mg/dL [facility] Calcium 8.9 8.4 - 10.2 mg/dL [facility] 07/26/2025 2:37 PM EST 07/26/2025 4:00 PM EST us Generic External Data Provider LAB BLOOD ORDERAB LES Final Result Performing Organization Address [facility]/ZIP Co de Phone Number [facility] [address] [place] [phone] * (ABNORMAL) POCT Hgb A1c (07/26/2025 1:59 PM EST) Only the most recent of2 resultswithin the time period is included. Hemoglobin A1C 12.6(A) 4.0 - 5.7 % QC Media Lot # [id number] Lot# Expiration Date 6172 Blood 07/26/2025 1:59 PM EST us Amanda Myers MD POINT OF CARE TEST EN TER/EDIT ORDERABLES Final Result * (ABNORMAL) POCT Glucose (07/26/2025 1:59 PM EST) Only the most recent of2 resultswithin the time period is included. Glucose Blood, POC 405(A) 60 - 200 mg/dL QC Media Lot # [id number] Lot# Expiration Date Blood Capillary blood specimen / Unknown 07/26/2025 1:59 PM EST us Amanda Myers MD POINT OF CARE TEST EN TER/EDIT ORDERABLES Final Result * US VENOUS DUPLEX LE RT (07/08/2025 4:30 PM EST) Anatomical Region Laterality Modality Abdomen Ultrasound 07/08/2025 4:30 PM EST Narrative 07/08/2025 4:31 PM EST [place] [address] Ultrasound Report Signed Patient: Mary Lou Godwin MR#: M [id number] : 1950 Acct:[id number] Age/Sex: 75 / F ADM Date: 07/08/25 Loc: [place] [address]: Wyatt Sheffield MD Ordering Physician: Riaz Mccall Date of Service: 07/08/25 Procedure(s): US venous duplex LE RT Accession Number(s): [id number] cc: Amanda Watkins MD; Riaz Mccall Reason for Exam: RLE pain swelling CLINICAL HISTORY: RLE pain swelling Venous duplex ultrasound right lower extremity Comparison: US/SR - US LOWER EXTREMITY VEINS BILATERAL - 03/18/24 12:25 EDT Findings: The visualized deep veins are fully compressible with normal Doppler color flow and spectral tracings. No popliteal cyst. IMPRESSION: 1. Negative for right lower extremity deep vein thrombosis. This document has been electronically signed by: Herminia Ratliff MD on 07/08/2025 16:30:26 Dictated By: Herminia Ratliff MD Signed By: <Electronically signed by Herminia Ratliff MD in OV> 07/08/25 1631 DD/ 1630 TD/TT: 07/08/25 1630 Oxygen Tank Filler: Procedure Note Donotuseinterpreter, Image - 07/08/2025 [place] [address] Ultrasound Report Signed Patient: Mary Lou Godwin ZMR#: M [id number] : 9Acct:[id number] Age/Sex: 75 / FADM Date: 07/08/25 Loc: [place] [address]: Wyatt Sheffield MD Ordering Physician: Riaz Mccall Date of Service: 07/08/25 Procedure(s): US venous duplex LE RT Accession Number(s): [id number] cc: Amanda Watkins MD; Riaz Mccall Reason for Exam: RLE pain swelling CLINICAL HISTORY: RLE pain swelling Venous duplex ultrasound right lower extremity Comparison: US/SR - US LOWER EXTREMITY VEINS BILATERAL - 03/18/24 12:25 EDT Findings: The visualized deep veins are fully compressible with normal Doppler color flow and spectral tracings. No popliteal cyst. IMPRESSION: 1. Negative for right lower extremity deep vein thrombosis. This document has been electronically signed by: Herminia Ratliff MD on 07/08/2025 16:30:26 Dictated By: Herminia Ratliff MD Signed By: <Electronically signed by Herminia Ratliff MD in OV> 07/08/25 1631 DD/ 1630 TD/TT: 07/08/25 1630 Oxygen Tank Filler: [facility] External Provider IMG US PROCEDURES Edited Result - Final * CT Chest w/o Contrast (07/08/2025 4:26 PM EST) Anatomical Region Laterality Modality Body, Chest Computed Tomogra phy 07/08/2025 4:26 PM EST Narrative 07/08/2025 4:28 PM EST [address] [address] [address] Scan Report Signed Patient: Mary Lou Godwin MR#: M [id number] : 1950 Acct:[id number] Age/Sex: 75 / F ADM Date: 07/08/25 Loc: [place] [address]: Wyatt Sheffield MD Ordering Physician: Riaz Mccall Date of Service: 07/08/25 Procedure(s): CT chest wo IV con Accession Number(s): [id number] cc: Amanda Watkins MD; Raiz Mccall Report Number: [id number]: Total DLP = 387.54 mGy-cm Reason for Exam: sob hypoxia CLINICAL HISTORY: sob hypoxia CT chest without contrast Comparison: CT/NE/SR - CT CHEST WO IV CON - 08/02/24 17:22 EST Findings: Mildly enlarged heart. Small amount of pericardial fluid. Moderately severe coronary artery calcification. Small calcification within the right lobe of the thyroid gland. No mediastinal lymphadenopathy. Evaluation of lung parenchyma is mildly limited by artifact. There are minimal ground-glass opacities within the bilateral lungs. There is no consolidation, pleural effusion or pneumothorax. Findings at the level of the abdomen are reported separately. The bones are intact. IMPRESSION: 1. Mild ground-glass opacities within the bilateral lungs most likely secondary to atelectasis. 2. Cardiomegaly. Small amount of pericardial fluid. This document has been electronically signed by: Herminia Ratliff MD on 07/08/2025 16:26:42 Dictated By: Herminia Ratliff MD Signed By: <Electronically signed by Herminia Ratliff MD in OV> 07/08/25 1628 DD/ 162 TD/TT: 07/08/251625 Oxygen Tank Filler: Procedure Note Donotuseinterpreter, Image - 07/08/[address] [address] [address] Scan Report Signed Patient: Mary Lou Godwin ZMR#: M [id number] : 9Acct:[id number] Age/Sex: 75 / FADM Date: 07/08/25 Loc: [place] [address]: Wyatt Sheffield MD Ordering Physician: Riaz Mccall Date of Service: 07/08/25 Procedure(s): CT chest wo IV con Accession Number(s): [id number] cc: Amanda Watkins MD; Riaz Mccall Report Number: [id number]: Total DLP = 387.54 mGy-cm Reason for Exam: sob hypoxia CLINICAL HISTORY: sob hypoxia CT chest without contrast Comparison: CT/NE/SR - CT CHEST WO IV CON - 08/02/24 17:22 EST Findings: Mildly enlarged heart. Small amount of pericardial fluid. Moderately severe coronary artery calcification. Small calcification within the right lobe of the thyroid gland. No mediastinal lymphadenopathy. Evaluation of lung parenchyma is mildly limited by artifact. There are minimal ground-glass opacities within the bilateral lungs. There is no consolidation, pleural effusion or pneumothorax. Findings at the level of the abdomen are reported separately. The bones are intact. IMPRESSION: 1. Mild ground-glass opacities within the bilateral lungs most likely secondary to atelectasis. 2. Cardiomegaly. Small amount of pericardial fluid. This document has been electronically signed by: Herminia Ratliff MD on 07/08/2025 16:26:42 Dictated By: Herminia Ratliff MD Signed By: <Electronically signed by Herminia Ratliff MD in OV> 07/08/25 1628 DD/ 1626 TD/TT: 07/08/25 162 Oxygen Tank Filler: [facility] External Provider IMG CT PROCEDURES Edited Result - Final * CT Abdomen Pelvis w/o Contrast (07/08/2025 4:01 PM EST) Anatomical Region Laterality Modality Body, Pelvis, Abdomen Computed T omography 07/08/2025 4:01 PM EST Narrative 07/08/2025 4:02 PM EST [address] [address] [address] Scan Report Signed Patient: Mary Lou Godwin MR#: M [id number] : 1950 Acct:[id number] Age/Sex: 75 / F ADM Date: 07/08/25 Loc: HO.ED Attending Dr: Ordering Physician: Riaz Mccall Date of Service: 07/08/25 Procedure(s): CT abdomen pelvis wo IV con Accession Number(s): [id number] cc: Amanda Watkins MD; Riaz Mccall Report Number: [id number]: Total DLP = 1000.40 mGy-cm Reason for Exam: abd pain CLINICAL HISTORY: abd pain CT abdomen and pelvis without contrast Comparison: CT/SR - CT ABDOMEN PELVIS W IV CON - 03/03/25 19:45 EDT Findings: Minimal dependent changes at the lung bases. Mild cardiomegaly and a small amount of pericardial fluid, unchanged. There are several kidney cysts. No calculus or hydronephrosis. Normal liver, spleen and adrenal glands. Moderate pancreatic atrophy. There are multiple gallstones. There is no biliary dilatation. Prior ventral hernia repair. No bowel herniation. No bowel edema or obstruction. There are multiple uterine fibroids. There is moderate distention of the urinary bladder. The appendix is normal. The bones are intact. IMPRESSION: 1. Cholelithiasis. 2. Multiple uterine fibroids. This document has been electronically signed by: Herminia Ratliff MD on 07/08/2025 16:01:05 Dictated By: Herminia Ratliff MD Signed By: <Electronically signed by Herminia Ratliff MD in OV> 07/08/25 1602 DD/ 1601 TD/TT: 07/08/25 1601 Oxygen Tank Filler: Procedure Note Donotuseinterpreter, Image - 07/08/[address] [address] [address] Scan Report Signed Patient: Mary Lou Godwin ZMR#: M [id number] : 9Acct:[id number] Age/Sex: 75 / FADM Date: 07/08/25 Loc: [place].ED Attending Dr: Ordering Physician: Riaz Mccall Date of Service: 07/08/25 Procedure(s): CT abdomen pelvis wo IV con Accession Number(s): [id number] cc: Amanda Watkins MD; Riaz Mccall Report Number: [id number]: Total DLP = 1000.40 mGy-cm Reason for Exam: abd pain CLINICAL HISTORY: abd pain CT abdomen and pelvis without contrast Comparison: CT/SR - CT ABDOMEN PELVIS W IV CON - 03/03/25 19:45 EDT Findings: Minimal dependent changes at the lung bases. Mild cardiomegaly and a small amount of pericardial fluid, unchanged. There are several kidney cysts. No calculus or hydronephrosis. Normal liver, spleen and adrenal glands. Moderate pancreatic atrophy. There are multiple gallstones. There is no biliary dilatation. Prior ventral hernia repair. No bowel herniation. No bowel edema or obstruction. There are multiple uterine fibroids. There is moderate distention of the urinary bladder. The appendix is normal. The bones are intact. IMPRESSION: 1. Cholelithiasis. 2. Multiple uterine fibroids. This document has been electronically signed by: Herminia Ratliff MD on 07/08/2025 16:01:05 Dictated By: Herminia Ratliff MD Signed By: <Electronically signed by Herminia Ratliff MD in OV> 07/08/25 1602 DD/ 1601 TD/TT: 07/08/25 1601 Oxygen Tank Filler: us [facility] External Provider IMG CT PROCEDURES Edited Result - Final * Lower Extremity Venous Duplex (07/08/2025 2:06 PM EST) 07/08/2025 2:06 PM EST Narrative [facility] - 07/08/2025 2:08 PM EST [address] [address] Ultrasound Report Signed Patient: Mary Lou Godwin MR#: M [id number] : 1950 Acct:[id number] Age/Sex: 75 / F ADM Date: 07/08/25 Loc: .ED Attending Dr: Ordering Physician: Riaz Mccall Date of Service: 07/08/25 Procedure(s): US venous duplex LE LT Accession Number(s): [id number] cc: Amanda Watkins MD; Riaz Mccall Reason for Exam: LLE pain CLINICAL HISTORY: LLE pain Venous duplex ultrasound left lower extremity Comparison: US/SR - US LOWER EXTREMITY VEINS BILATERAL - 03/18/24 12:25 EDT Findings: The left common femoral, greater saphenous, femoral, popliteal and posterior tibial veins are patent. The peroneal vein was not visualized. No popliteal cyst. IMPRESSION: 1. Negative for left lower extremity deep vein thrombosis. This document has been electronically signed by: Herminia Ratliff MD on 07/08/2025 14:06:52 Dictated By: Herminia Ratliff MD Signed By: <Electronically signed by Herminia Ratliff MD in OV> 07/08/25 1407 DD/ 1406 TD/TT: 07/08/25 1406 Oxygen Tank Filler: Procedure Note Donotbalbirinterpreter, Image - 07/08/2025 [place] [address] Ultrasound Report Signed Patient: Mary Lou Godwin ZMR#: M [id number] : 1950cct:[id number] Age/Sex: 75 / FADM Date: 07/08/25 Loc: .ED Attending Dr: Ordering Physician: Riaz Mccall Date of Service: 07/08/25 Procedure(s): US venous duplex LE LT Accession Number(s): [id number] cc: Amanda Watkins MD; Riaz Mccall Reason for Exam: LLE pain CLINICAL HISTORY: LLE pain Venous duplex ultrasound left lower extremity Comparison: US/SR - US LOWER EXTREMITY VEINS BILATERAL - 03/18/24 12:25 EDT Findings: The left common femoral, greater saphenous, femoral, popliteal and posterior tibial veins are patent. The peroneal vein was not visualized. No popliteal cyst. IMPRESSION: 1. Negative for left lower extremity deep vein thrombosis. This document has been electronically signed by: Herminia Ratliff MD on 07/08/2025 14:06:52 Dictated By: Herminia Ratliff MD Signed By: <Electronically signed by Herminia Ratliff MD in OV> 07/08/25 140 DD/ 05 TD/TT: 07/08/251405 Oxygen Tank Filler: [facility] External Provider CV VASC ULAR PROCEDURES Edited Result - Final Performing Organization Address [facility] Co de Phone Number [facility] [address] [place] [address] [phone] * Lactic Acid (07/08/2025 1:54 PM EST) Lactic Acid 1.5 0.5 - 2.0 mmol/L [facility] 07/08/2025 1:54 PM EST 07/08/2025 1:58 PM EST Generic External Data Provider LAB BLOOD ORDERAB LES Final Result Performing Organization Address [facility] Co de Phone Number [facility] [address] [place] [phone] * XR Chest 1 View (07/08/2025 1:12 PM EST) Anatomical Region Laterality Modality Chest Radiographic Franca ging 07/08/2025 1:12 PM EST Narrative 07/08/2025 1:13 PM EST [address] [address] XRay Report Signed Patient: Mary Lou Godwin MR#: M [id number] : 1950 Acct:[id number] Age/Sex: 75 / F ADM Date: 07/08/25 Loc: [place].ED Attending Dr: Ordering Physician: Riaz Mccall Date of Service: 07/08/25 Procedure(s): XR chest 1V Accession Number(s): [id number] cc: mAanda Watkins MD; Riaz Mccall Reason for Exam: SOB CLINICAL HISTORY: SOB 1 view chest x-ray Comparison: CR - XR CHEST 1V - 03/03/25 18:18 EDT Findings: Evaluation of the lung parenchyma is limited by body habitus and portable technique. There is a possible focus of consolidation within the retrocardiac region. The right lung is clear. Limited evaluation for pleural fluid. The heart is enlarged. No acute fracture. IMPRESSION: Possible focus of atelectasis or infiltrate within the retrocardiac region. This document has been electronically signed by: Herminia Ratliff MD on 07/08/2025 13:12:36 Dictated By: Herminia Ratliff MD Signed By: <Electronically signed by Herminia Ratliff MD in OV> 07/08/25 1312 DD/ 1312 TD/TT: 07/08/25 1312 Oxygen Tank Filler: Procedure Note Donotuseinterpreter, Image - 07/08/2025 [place] [address] XRay Report Signed Patient: Mary Lou Godwin ZMR#: M [id number] : 9Acct:[id number] Age/Sex: 75 / FADM Date: 07/08/25 Loc: .ED Attending Dr: Ordering Physician: Riaz Mccall Date of Service: 07/08/25 Procedure(s): XR chest 1V Accession Number(s): [id number] cc: Amanda Watkins MD; Riaz Mccall Reason for Exam: SOB CLINICAL HISTORY: SOB 1 view chest x-ray Comparison: CR - XR CHEST 1V - 03/03/25 18:18 EDT Findings: Evaluation of the lung parenchyma is limited by body habitus and portable technique. There is a possible focus of consolidation within the retrocardiac region. The right lung is clear. Limited evaluation for pleural fluid. The heart is enlarged. No acute fracture. IMPRESSION: Possible focus of atelectasis or infiltrate within the retrocardiacregion. This document has been electronically signed by: Herminia Ratliff MD on 07/08/2025 13:12:36 Dictated By: Herminia Ratliff MD Signed By: <Electronically signed by Herminia Ratliff MD in OV> 07/08/251311 DD/ 11 TD/TT: 07/08/251311 Oxygen Tank Filler: [facility] External Provider IMG XR PROCEDURES Edited Result - Final * (ABNORMAL) Glucose, Whole Blood (06/13/2025 7:14 AM EST) Only the most recent of13 resultswithin the time period is included. Glucose, Whole Blood 317(H) 60 - 115 mg/dL [facility] Comment:METER #: [id number] 06/13/2025 7:14 AM EST 06/13/2025 7:18 AM EST Generic External Data Provider LAB BLOOD ORDERAB LES Final Result [facility] [address] [place] [address] [phone] * (ABNORMAL) Urinalysis, Complete, with Reflex to Culture (06/13/2025 6:31 AM EST) Only the most recent of3 resultswithin the time period is included. Color Urine Yellow [facility] Appearance Urine Clear [facility] PH 5.5 5.0 - 9.0 [facility] Glucose Urine UA >=1000(A) Negative mg/dL [facility] Urine Blood Negative Negative [facility] Specific [place] - Urine 1.020 1.005 - 1.025 [facility] Urine Protein Negative Neg-Trace mg/dL [facility] Urine Ketones Negative Negative mg/dL [facility] Nitrite Urine Negative Negative [facility] Leukocyte Esterase Urine Trace(A) Negative [facility] RBC Urine 0-2 0 - 2 /HPF [facility] Urine WBC 0-5 0 - 5 /HPF [facility] Urine Squamous Epithelial Cell 0-2 0 - 2 /HPF [facility] Urine Bacteria 2+ None Seen [facility] Hyaline Casts, Urine 0-2 0 - 2 /LPF [facility] 06/13/2025 6:31 AM EST 06/13/2025 6:33 AM EST Narrative [facility] - 06/13/2025 6:49 AM EST Urine, Clean Catch us Generic External Data Provider LAB URINE ORDERAB LES Final Result Performing Organization Address [facility] Co de Phone Number [facility] [address] [place] [phone] * (ABNORMAL) Urinalysis w/reflex microscopic (06/13/2025 6:31 AM EST) Color Urine Yellow [facility] Appearance Urine Clear [facility] PH 5.5 5.0 - 9.0 [facility] Glucose Urine UA >=1000(A) Negative mg/dL [facility] Urine Blood Negative Negative [facility] Specific [place] - Urine 1.020 1.005 - 1.025 [facility] Urine Protein Negative Neg-Trace mg/dL [facility] Urine Ketones Negative Negative mg/dL [facility] Nitrite Urine Negative Negative [facility] Leukocyte Esterase Urine Trace(A) Negative [facility] 06/13/2025 6:31 AM EST 06/13/2025 6:33 AM EST Narrative [facility] - 06/13/2025 6:48 AM EST Urine, Clean Catch Generic External Data Provider LAB URINE ORDERAB LES Final Result Performing Organization Address [facility] Co de Phone Number [facility] [address] [place] [phone] * High Sensitivity Troponin I (06/12/2025 6:34 PM EST) Only the most recent of3 resultswithin the time period is included. TROPONIN I HIGH SENSITIVITY 8.9 <3.5 - 17.0 ng/L [facility] Comment:The [place] high sens itivity Troponin-I results should beused in conjunction with other diagnostic information suchas ECG, clinical observations and information, and patientsymptoms to aid in the diagnosis of [place]. 06/12/2025 6:34 PM EST 06/12/2025 6:36 PM EST us Generic External Data Provider LAB BLOOD ORDERAB LES Final Result Performing Organization Address City/State/[facility] Co de Phone Number [facility] [address] [place] [phone] * XR Knee 4+ Views Right (06/12/2025 5:47 PM EST) Anatomical Region Laterality Modality Lower Extremities, Knee Right Radiogra phic Imaging 06/12/2025 5:47 PM EST Narrative 06/12/2025 5:48 PM EST [address] [address] XRay Report Signed Patient: Mary Lou Godwin MR#: M [id number] : 1950 Acct:[id number] Age/Sex: 74 / F ADM Date: 06/12/25 Loc: .ED Attending Dr: Ordering Physician: Kristi Delvalle Date of Service: 06/12/25 Procedure(s): XR knee RT 4V Accession Number(s): [id number] cc: Amanda Watkins MD; Kirsti Delvalle Reason for Exam: pain s/p FOOB [...] in OV> 06/12/251746 DD/ 46 TD/TT: 06/12/251746 Oxygen Tank Filler: Procedure Note Huan, Image - 06/12/2025 [place] [address] XRay Report Signed Patient: Mary Lou Godwin ZMR#: M [id number] : 1950cct:[id number] Age/Sex: 74 / FADM Date: 06/12/25 Loc: HO.ED Attending Dr: Ordering Physician: Kristi Delvalle Date of Service: 06/12/25 Procedure(s): XR knee RT 4V Accession Number(s): [id number] cc: Amanda Watkins MD; Kristi Delvalle Reason [...] in OV> 06/12/251746 DD/ 46 TD/TT: 06/12/251746 Oxygen Tank Filler: [facility] External Provider IMG XR PROCEDURES Final Result * (ABNORMAL) VENOUS BLOOD GAS (06/12/2025 3:41 PM EST) Only the most recent of3 resultswithin the time period is included. VBG pH 7.47(H) 7.32 - 7.43 [facility] Comment:METER #: [id number] additional_comment: Huseyin mancini VBG PCO2 43 mmHg [facility] Comment:METER #: [id number] additional_comment: Huseyin mancini VBG PO2 42 mmHg [facility] Comment:METER #: [id number] additional_comment: Huseyin ELG Base Excess 8.2 mmol/L [facility] Comment:METER #: [id number] additional_comment: Huseyin ELG HCO3 32(H) 22 - 26 mmol/L [facility] Comment:METER #: [id number] additional_comment: Huseyin mancini O2 Sat, Samuel 67.0 % [facility] Comment:METER #: [id number] additional_comment: Huseyin mancini 06/12/2025 3:41 PM EST 06/12/2025 3:44 PM EST Generic External Data Provider LAB BLOOD ORDERAB LES Final Result Performing Organization Address City/[facility]/ZIP Co de Phone Number [facility] [address] [place] [phone] * Beta-Hydroxybutyrate (06/12/2025 3:35 PM EST) Only the most recent of2 resultswithin the time period is included. Beta-Hydroxybut yrate 0.12 0.02 - 0.27 mmol/L [facility] 06/12/2025 3:35 PM EST 06/12/2025 3:39 PM EST us Generic External Data Provider LAB BLOOD ORDERAB LES Final Result Performing Organization Address City/[facility]/ZIP Co de Phone Number [facility] [address] [place] [phone] * Ammonia, Plasma (06/12/2025 3:35 PM EST) Ammonia (P) 21 13 - 55 umol/L [facility] 06/12/2025 3:35 PM EST 06/12/2025 3:39 PM EST us Generic External Data Provider LAB BLOOD ORDERAB LES Final Result [facility] [address] [place] [phone] * (ABNORMAL) Comprehensive Metabolic Panel (06/12/2025 3:35 PM EST) Only the most recent of2 resultswithin the time period is included. Sodium 134(L) 135 - 145 mmol/L [facility] Potassium 4.9 3.3 - 5.1 mmol/L [facility] Chloride 95(L) 96 - 108 mmol/L [facility] Carbon Dioxide 33(H) 22 - 29 mmol/L [facility] Anion Gap 11(L) 12 - 20 [facility] Urea Nitrogen (BUN) 24(H) 9 - 16 mg/dL [facility] Creatinine, Serum 1.34 0.5 - 1.4 mg/dL [facility] Creatinine Clr Calc Pharmacy 41.2 [facility] Comment:Provided height and weight: 154.94 cm,108.6 kg.eGFR (calculated from the MDRD study equation) and eCrCl(calculated from the Cockcroft-Gault equation) are based ondifferent parameters and may not yield comparable results.If eCrCl result is absurd, please check patient'sheight/weight. Estimated Glomerular Filt Rate 39 [facility] Comment:Chronic Kidney Disea se: Estimated GFR < 60 mL/min/1.20w2Xrkncc Kidney Disease: Estimated GFR < 15 mL/min/1.73m2 Glucose 545(HH) 60 - 115 mg/dL [facility] Comment:Critical value for t est(s): GLUR Results called to and readback by: KEISHA Person calling:ASHLEY Date:06/12/25Time:16:02 Calcium 9.1 8.4 - 10.2 mg/dL [facility] Bilirubin, Total 0.3 0.0 - 1.0 mg/dL [facility] Aspartate Amino Transferase 16 5 - 31 U/L [facility] Alanine Aminotransferase 7 0 - 31 U/L [facility] Total Protein 6.8 6.5 - 8.0 g/dL [facility] Albumin Level 3.5 3.5 - 5.0 g/dL [facility] Alkaline Phosphatase 88 39 - 117 U/L [facility] 06/12/2025 3:35 PM EST 06/12/2025 3:39 PM EST us Generic External Data Provider LAB BLOOD ORDERAB LES Final Result Performing Organization Address City/State/[facility] Co de Phone Number [facility] [address] [place] [phone] * CT Cervical Spine w/o Contrast (06/12/2025 3:13 PM EST) Only the most recent of2 resultswithin the time period is included. Anatomical Region Laterality Modality Spine, C-spine Computed Tomogra phy 06/12/2025 3:13 PM EST Narrative 06/12/2025 3:42 PM EST [address] [address] [address] Scan Report Signed Patient: Mary Lou Godwin MR#: M [id number] : 1950 Acct:[id number] Age/Sex: 74 / F ADM Date: 06/12/25 Loc: HO.ED Attending Dr: Ordering Physician: Kristi Delvalle Date of Service: 06/12/25 Procedure(s): CT cervical spine wo IV con Accession Number(s): [id number] cc: Amanda Watkins MD; Kristi Delvalle Report Number: [id number]: Total DLP = 1657.07 mGy-cm Reason for [...] 06/12/25 1539 DD/ 1513 TD/TT: 06/12/25 1530 Oxygen Tank Filler: Procedure Note Donotuseinterpreter, Image - 06/12/[address] [address] [address] Scan Report Signed Patient: Mary Lou Godwin ZMR#: M [id number] : 9Acct:[id number] Age/Sex: 74 / FADM Date: 06/12/25 Loc: HO.ED Attending Dr: Ordering Physician: Kristi Delvalle Date of Service: 06/12/25 Procedure(s): CT cervical spine wo IV con Accession Number(s): [id number] cc: Amanda Watkins MD; Kristi Delvalle Report Number: [id number]: Total DLP = 1657.07 mGy-cm Reason for [...] by: Son Brennan MD 06/12/2025 03:39 PM [facility] Dictated By: Son Watson MD Signed By: <Electronically signed by Son Lazaro MDin OV> 06/12/25 1539 DD/ 1513 TD/TT: 06/12/25 1530 Oxygen Tank Filler: [facility] External Provider IMG CT PROCEDURES Final Result * CT Head w/o Contrast (06/12/2025 3:13 PM EST) Only the most recent of2 resultswithin the time period is included. Anatomical Region Laterality Modality Head, Neck Computed Tomogra phy 06/12/2025 3:13 PM EST Narrative 06/12/2025 3:56 PM EST [place] [address] CT Scan Report Signed Patient: Mary Lou Godwin MR#: M [id number] : 1950 Acct:[id number] Age/Sex: 74 / F ADM Date: 06/12/25 Loc: HO.ED Attending Dr: Ordering Physician: Kristi Delvalle Date of Service: 06/12/25 Procedure(s): CT head/brain wo IV con Accession Number(s): [id number] cc: Amanda Watkins MD; Kristi Delvalle Report Number: [id number]: Total DLP = 0.00 mGy-cm Reason for [...] 06/12/25 1552 DD/ 1513 TD/TT: 06/12/25 1530 Oxygen Tank Filler: JAMAAL Procedure Note Donotuseinterpreter, Image - 06/12/[address] [place] [address] [address] Scan Report Signed Patient: Mary Lou Godwin ZMR#: M [id number] : 1950cct:[id number] Age/Sex: 74 / FADM Date: 06/12/25 Loc: .ED Attending Dr: Ordering Physician: Kristi Delvalle Date of Service: 06/12/25 Procedure(s): CT head/brain wo IV con Accession Number(s): [id number] cc: Amanda Watkins MD; Kristi Delvalle Report Number: [id number]: Total DLP = 0.00 mGy-cm Reason for [...] 06/12/25 1552 DD/ 1513 TD/TT: 06/12/25 1530 Oxygen Tank Filler: JAMAAL [facility] External Provider IMG CT PROCEDURES Final Result * (ABNORMAL) Complete Blood Count Manual Diff (06/11/2025 1:41 AM EST) White Blood Count 5.6 4.8 - 10.8 X10*3/uL [facility] Red Blood Count 4.38 4.20 - 5.50 X10*6/uL [facility] Hemoglobin 11.7(L) 12.0 - 16.0 g/dl [facility] Hematocrit 36.2(L) 37.0 - 47.0 % [facility] Mean Corpuscular Volume 82.6 80.0 - 98.0 fL [facility] Mean Corpuscular Hemoglobin 26.7(L) 27.0 - 33.0 pg [facility] Mean Corpuscular HGB Conc 32.3 31.0 - 35.0 g/dl [facility] Red Cell Distribution Width 15.1 11.0 - 16.0 % [facility] Platelet Count 242 160 - 400 X10*3/uL [facility] Mean Platelet Volume 10.4 9.4 - 12.3 fL [facility] NRBC Pct Auto 0.0 0.0 - 0.2 /100WBC [facility] NRBC Abs Auto 0.000 0.0 - 0.012 X10*3/uL [facility] Neutrophils % Manual 71 45 - 73 % [facility] Band Neutrophils Percent 1(L) 3 - 5 % [facility] Lymphocytes Percent Manual 16(L) 20 - 40 % [facility] Atypical Lymphs Percent Manual 1 0 - 6 % [facility] Monocytes Percent Manual 8 2 - 11 % [facility] EOSINOPHILS % MANUAL 3 0 - 4 % [facility] NEUTROPHILS ABSOLUTE MANUAL 4.0 2.0 - 8.3 X10*3/uL [facility] LYMPHOCYTES ABSOLUTE MANUAL 0.9(L) 1.2 - 4.9 X10*3/uL [facility] Atypical Lymph Absolute Manual 0.1 x10*3/uL [facility] MONOCYTES ABSOLUTE MANUAL 0.4 0.1 - 1.2 X10*3/uL [facility] EOSINOPHILS ABSOLUTE MANUAL 0.2 0.0 - 0.4 X10*3/uL [facility] Platelet Estimate NORMAL NORMAL [facility] Platelet Morphology Comment NORMAL [facility] RBC Morphology NOTED [facility] Hypochromasia 1+ (5-14) /OIF [facility] Microcytosis 1+ (5-14) /OIF [facility] 06/11/2025 1:41 AM EST 06/11/2025 1:44 AM EST us Generic External Data Provider LAB BLOOD ORDERAB LES Final Result Performing Organization Address City/State/[facility] Co de Phone Number [facility] [address] [place] [phone] * Magnesium (06/11/2025 1:41 AM EST) Magnesium 2.4 1.6 - 2.6 mg/dL [facility] 06/11/2025 1:41 AM EST 06/11/2025 1:44 AM EST us Generic External Data Provider LAB BLOOD ORDERAB LES Final Result Performing Organization Address [facility] Co de Phone Number [facility] [address] [place] [phone] * XR Shoulder 2+ Views Left (06/03/2025 11:39 AM EDT) Anatomical Region Laterality Modality Upper Extremities, Shoulder Left Radi ographic Imaging 06/03/2025 11:3 9 AM EDT Narrative 06/03/2025 11:41 AM EDT [address] [address] XRay Report Signed Patient: Mary Lou Godwin MR#: M [id number] : 1950 Acct:[id number] Age/Sex: 74 / F ADM Date: 06/03/25 Loc: .ED Attending Dr: Ordering Physician: Kristi Delvalle Date of Service: 06/03/25 Procedure(s): XR shoulder LT min 2V Accession Number(s): [id number] cc: Amanda Watkins MD; Kristi Delvalle Reason [...] OV> 06/03/25 1140 DD/ 1139 TD/TT: 06/03/25 113 Oxygen Tank Filler: Procedure Note Rayter, Image - 06/03/[address] [address] XRay Report Signed Patient: Mary Lou Godwin ZMR#: M [id number] : 9Acct:[id number] Age/Sex: 74 / FADM Date: 06/03/25 Loc: HO.ED Attending Dr: Ordering Physician: Kristi Delvalle Date of Service: 06/03/25 Procedure(s): XR shoulder LT min 2V Accession Number(s): [id number] cc: Amanda Watkins MD; Kristi Delvalle Reason [...] OV> 06/03/25 1140 DD/ 1139 TD/TT: 06/03/25 113 Oxygen Tank Filler: us [facility] External Provider IMG XR PROCEDURES Final Result * XR Wrist 3+ Views Left (06/03/2025 11:35 AM EDT) Anatomical Region Laterality Modality Upper Extremities, Wrist Left Radiogr aphic Imaging 06/03/2025 11:3 5 AM EDT Narrative 06/03/2025 11:37 AM EDT [address] [address] XRay Report Signed Patient: Mary Lou Godwin Z MR#: M [id number] : 1950 Acct:[id number] Age/Sex: 74 / F ADM Date: 06/03/25 Loc: HO.ED Attending Dr: Ordering Physician: Kristi Delvalle Date of Service: 06/03/25 Procedure(s): XR wrist LT min 3V Accession Number(s): [id number] cc: Amanda Watkins MD; Kristi Delvalle Reason [...] 06/03/25 1136 DD/ 1135 TD/TT: 06/03/25 1135 Oxygen Tank Filler: Procedure Note Donotuseinterpreter, Image - 06/03/2025 [place] [address] XRay Report Signed Patient: Mary Lou Godwin ZMR#: M [id number] : 1950cct:[id number] Age/Sex: 74 / FADM Date: 06/03/25 Loc: HO.ED Attending Dr: Ordering Physician: Kristi Delvalle Date of Service: 06/03/25 Procedure(s): XR wrist LT min 3V Accession Number(s): [id number] cc: Amanda Watkins MD; Kristi Delvalle Reason [...] Cruz MD in OV> 06/03/25 1136 DD/ 113 TD/TT: 06/03/25 113 Oxygen Tank Filler: [facility] External Provider IMG XR PROCEDURES Final Result * (ABNORMAL) Hepatic Function Panel (06/03/2025 10:06 AM EDT) Bilirubin, Total 0.2 0.0 - 1.0 mg/dL [facility] Bilirubin, Direct <0.2 0.0 - 0.5 mg/dL [facility] Aspartate Amino Transferase 20 5 - 31 U/L [facility] Alanine Aminotransferase 18 0 - 31 U/L [facility] Total Protein 6.1(L) 6.5 - 8.0 g/dL [facility] Albumin Level 3.0(L) 3.5 - 5.0 g/dL [facility] Alkaline Phosphatase 70 39 - 117 U/L [facility] 06/03/2025 10:0 6 AM EDT 06/03/2025 10:10 AM EDT Generic External Data Provider LAB BLOOD ORDERAB LES Final Result [facility] [address] [place] [phone] * (ABNORMAL) Drug Monitoring, Panel 1, Screen, Urine (05/30/2025 5:56 AM EDT) Opiate Screen Urine Not Detected Not Detect [facility] Comment:Opiate cut-off is 30 0 ng/mL.Positive results are unconfirmed and should not be used fornon-medical purposes. Barbiturates, Urine Not Detected Not Detect [facility] Comment:Barbiturate cut-off is 200 ng/mL.Positive results are unconfirmed and should not be used fornon-medical purposes. Phencyclidine Screen Urine Not Detected Not Detect [facility] Comment:Phencyclidine cut-of f is 25 ng/mL.Positive results are unconfirmed and should not be used fornon-medical purposes. Amphetamine Screen Urine Not Detected Not Detect [facility] Comment:Amphetamine cut-off is 1000 ng/mL.Positive results are unconfirmed and should not be used fornon-medical purposes. Benzodiazepines Screen Urine Not Detected Not Detect [facility] Comment:Benzodiazepine cut-o ff is 200 ng/mL.Positive results are unconfirmed and should not be used fornon-medical purposes. Cocaine Screen Urine Not Detected Not Detect [facility] Comment:Cocaine cut-off is 3 00 ng/mL.Positive results are unconfirmed and should not be used fornon-medical purposes. Cannabinoid Screen Urine Not Detected Not Detect [facility] Comment:Cannabinoid cut-off is 50 ng/mL.Positive results are unconfirmed and should not be used fornon-medical purposes. Methadone Screen, Urine Not Detected Not Detect ng/mL [facility] Comment:Methadone cut-off is 300 ng/mL.Positive results are unconfirmed and should not be used fornon-medical purposes. FENTANYL URINE Not Detected Not Detect [facility] Comment:Fentanyl cut-off is 1 ng/mL.Positive results are unconfirmed and should not be used fornon-medical purposes. Oxycodone Urine Screen Positive(A) Not Detect ng/mL [facility] Comment:Oxycodone cut-off is 100 ng/mL.Positive results are unconfirmed and should not be used fornon-medical purposes. Buprenorphine Screen Not Detected Not Detect ng/mL [facility] Comment:Buprenorphine cut-of f is 5 ng/mL.Positive results are unconfirmed and should not be used fornon-medical purposes. 05/30/2025 5:56 AM EDT 05/30/2025 6:04 AM EDT us Generic External Data Provider LAB URINE ORDERAB LES Final Result [facility] [address] [place] [phone] * Acetaminophen level (05/30/2025 12:14 AM EDT) Acetaminophen LAB <3 <30 mcg/mL [facility] 05/30/2025 12:1 4 AM EDT 05/30/2025 12:18 AM EDT Generic External Data Provider LAB BLOOD ORDERAB LES Final Result Performing Organization Address City/[facility]/ZIP Co de Phone Number [facility] [address] [place] [phone] * (ABNORMAL) Salicylate (05/30/2025 12:14 AM EDT) Salicylate <5.0(L) 15 - 30 mg/dL [facility] 05/30/2025 12:1 4 AM EDT 05/30/2025 12:18 AM EDT Generic External Data Provider LAB BLOOD ORDERAB LES Final Result Performing Organization Address [facility] Co de Phone Number [facility] [address] [place] [phone] * (ABNORMAL) Lipid Panel, Standard (09/01/2024 2:09 PM EST) Triglycerides 241(H) <150 mg/dL [facility] Comment:Desirable Triglyceri de: less than 150 mg/dLBorderline High Triglyceride 150-199 mg/dLHigh Triglyceride: 200-499 mg/dLVery High Triglyceride: greater than or equal to 5OO mg/dL Cholesterol 107 <200 mg/dL [facility] Comment:Desirable Cholestero l: less than 200 mg/dLBorderline High Cholesterol: 200-239 mg/dLHigh Cholesterol: greater than 239 mg/dL LDL Cholesterol Calculated 34 <100 mg/dL [facility] Comment:Desirable LDL: less than 100 mg/dLNear Optimal/Above Optimal LDL: 110- 129 mg/dLBorderline High LDL: 130-159 mg/dLHigh LDL: 160-189 mg/dLVery High LDL: greater than or equal to 190 mg/dL HDL Cholesterol 25(L) >40 mg/dL [facility] Comment:Desirable HDL: great er than 40 mg/dL Note: This HDL assay may give artificially low results in patients with liver disease. 09/01/2024 2:09 PM EST 09/01/2024 4:09 PM EST us Amanda Myers MD LAB BLOOD ORDERABLES Final Result Performing Organization Address [facility]/ZIP Co de Phone Number [facility] [address] [place] [phone] * (ABNORMAL) ALBUMIN, RANDOM URINE W/CREATININE [...] ORDERABLES Final R esult Performing Organization Address City/[facility]/ZIP Co de Phone Number [facility] [address] [place] [address], from Last 3 Months or Most Recently [...] 07/26/2025 Patient has chronic kidney disease 07/26/[address] [place] [phone] [facility] OPTIONS (O D-SNP) [facility] STANDARD [address] [place] [phone] Care Teams Construction Carpenter Relationship Specialty Start Date End Date Amanda Watkins MD [address] [place] [phone] PCP - General Family Medicine 04/07/19 Hiro Ram FNP [address] [place] [address] Nurse Practitioner Family Medicine 07/06/23 Raad Arias, TheaD [address] [place] [phone] Pharmacist Internal Medicine 10/19/24 [facility] 03/08/25
--- OUTSIDE RECORDS SUMMARY | 2025-07-26 18:40 | XMS_ITS | Encounter Summary ---
Author Organization [employer] Address [address] [facility] 7t [place] [address] Care Team Providers Care Film Cutter Name Role Phone Amanda Watkins MD Primary Care Provide r Hiro Ram ENGINE TEST CELL TECHNICIAN Unavailable Unavailable Raad Arias PharmD Unavailable [phone] Reason for Visit * Reason Comments Med Refill Encounter Details Date Type Department Care Team (Late st Contact Info) Description 10/10/2024 Refill [facility] [address] [place] [address] Amanda Watkins MD [address] [place] [address] Social History Tobacco Use Types Packs/Day Years [...] Description 09/07/2025 3:00 PM EST Office Visit [address] [address] Gail Fleming MD [address] [place] [address] 09/21/2025 10:00 AM EST Telemedicine [address] [address] Kayley Alanis RN 10/25/2025 2:30 PM EDT Office Visit [address] [address] Amanda Watkins MD [address] [place] [phone] documented as of this encounter Visit Diagnoses Not on filedocumented in this encounter Additional Health Concerns Assessment Noted Time PHQ-9 Depression Total Score: 0 09/01/19 25 1:18 PM EST documented as of this encounter Care Teams Film Cutter Relationship Specialty Start Date End Date Amanda Watkins MD [address] [place] [phone] PCP - General Family Medicine 04/07/19 Hiro Ram FNP [address] [place] [address] Nurse Practitioner Family Medicine 07/06/23 Raad Arias, PharmD [address] [place] [address] Pharmacist Internal Medicine 10/19/24 [facility] 08/10[facility] 03/12/25 [facility] 03/08/25 documented as of this encounter
--- OUTSIDE RECORDS SUMMARY | 2025-07-26 18:40 | XMS_ITS | Encounter Summary ---
Author Organization [employer] Address [address] [facility] [address]t [place] [address] Care Team Providers Care Environmental Scientist Name Role Phone Amanda Watkins MD Primary Care Provide r Hiro Ram SOCIAL WORK COORDINATOR Unavailable Unavailable Raad Arias PharmD Unavailable [phone] Reason for Visit * Reason Comments Med Refill Encounter Details Date Type Department Care Team (Late st Contact Info) Description 09/27/2024 Refill [facility] [address] [place] [address] Ann Kulkarni DO [address] [place] [address] Social History Tobacco Use Types Packs/Day Years [...] Description 09/07/2025 3:00 PM EST Office Visit [facility] [address] [place] [address] Gail Fleming MD [address] [place] [address] 09/21/2025 10:00 AM EST Telemedicine [address] [phone] Kayley Alanis RN 10/25/2025 2:30 PM EDT Office Visit [address] [address] Amanda Watkins MD [address] [place] [address] documented as of this encounter Visit Diagnoses Not on filedocumented in this encounter Additional Health Concerns Assessment Noted Time PHQ-9 Depression Total Score: 0 09/01/19 25 1:18 PM EST documented as of this encounter Care Teams Environmental Scientist Relationship Specialty Start Date End Date Amanda Watkins MD [address] [place] [phone] PCP - General Family Medicine 04/07/19 Hiro Ram FNP [address] [place] [address] Nurse Practitioner Family Medicine 07/06/23 Raad Arias, TheaD [address] [facility] [place] [address] Pharmacist Internal Medicine 10/19/24 Ja [facility] 08/10/24 03/12/25 [facility] 03/08/25 documented as of this encounter
--- OUTSIDE RECORDS SUMMARY | 2025-07-26 18:41 | XMS_ITS | Encounter Summary ---
Author Organization [employer] Address [address] [facility] 7t [place] [address] Care Team Providers Care Adult Day Care Worker Name Role Phone Amanda Watkins MD Primary Care Provide r Hiro Ram PROFESSIONAL DEVELOPMENT DIRECTOR Unavailable Unavailable Raad Arias PharmD Unavailable [phone] Reason for Visit * Reason Onset Date Comments Durable Medical Equipment 01/09/2025 Encounter Details Date Type Department Care Team (Late st Contact Info) Description 01/09/2025 Telephone [facility] [address] [place] [address] Amanda Watkins MD [address] [place] [address] Durable Medical Equipment Social History Tobacco Use [...] Description 09/07/2025 3:00 PM EST Office Visit [facility] [address] [place] [address] Gail Fleming MD [address] [place] [address] 09/21/2025 10:00 AM EST Telemedicine [facility] [address] [place] [address] Kayley Alanis RN 10/25/2025 2:30 PM EDT Office Visit [facility] [address] [place] [address] Amanda Watkins MD [address] [place] [address] documented as of this encounter Visit Diagnoses Not on filedocumented in this encounter Additional Health Concerns Assessment Noted Time PHQ-9 Depression Total Score: 0 09/01/19 1:18 PM EST documented as of this encounter Care Teams Adult Day Care Worker Relationship Specialty Start Date End Date Amanda Watkins MD [address] [place] [phone] PCP - General Family Medicine 04/07/19 Hiro Ram FNP [address] [place] [address] Nurse Practitioner Family Medicine 07/06/23 Raad Arias, TheaD [address] [place] [phone] Pharmacist Internal Medicine 10/19/24 [facility] 08/10/24 03/12/25 [facility] 03/08/25 documented as of this encounter
--- OUTSIDE RECORDS SUMMARY | 2025-07-26 18:41 | XMS_ITS | Encounter Summary ---
Author Organization [employer] Address [address] [facility] [address]t [place] [address] Care Team Providers Care Telephone Operators Supervisor Name Role Phone Amanda Watkins MD Primary Care Provide r Hiro Ram RECEIVING CLERK Unavailable Unavailable Raad Arias PharmD Unavailable [phone] Reason for Visit * Reason Comments Med Refill Encounter Details Date Type Department Care Team (Late st Contact Info) Description 07/05/2024 Refill [facility] [address] [place] [address] Amanda Watkins MD [address] [place], [place] [phone] Social History Tobacco Use Types Packs/Day Years [...] Description 09/07/2025 3:00 PM EST Office Visit [address] [address] Gail Fleming MD [address] [place] [address] 09/21/2025 10:00 AM EST Telemedicine [address] [address] Kayley Alanis RN 10/25/2025 2:30 PM EDT Office Visit [address] [address] Amanda Watkins MD [address] [place] [address] documented as of this encounter Visit Diagnoses Not on filedocumented in this encounter Additional Health Concerns Assessment Noted Time PHQ-9 Depression Total Score: 10 024 3:23 PM EDT documented as of this encounter Care Teams Telephone Operators Supervisor Relationship Specialty Start Date End Date Amanda Watkins MD [address] [place] [address] PCP - General Family Medicine 04/07/19 Hiro Ram FNP [address] [place] [address] Nurse Practitioner Family Medicine 07/06/23 Raad Arias, PharmD [address] [place] [address] Pharmacist Internal Medicine 10/19/[address] [facility] 07/03/22 08/16/24 Ja [facility] 08/10/24 03/12/25 [facility] 03/08/25 documented as of this encounter
--- OUTSIDE RECORDS SUMMARY | 2025-07-26 18:41 | XMS_ITS | Encounter Summary ---
Author Organization [employer] Address [address] [facility] [address] [place] [address] Care Team Providers Care Senior It Project Manager Name Role Phone Amanda Watkins MD Primary Care Provide r Hiro Ram TOBACCO WAREHOUSE MANAGER Unavailable Unavailable Raad Arias PharmD Unavailable Encounter Details Date Type Department Care Team (Late st Contact Info) Description 07/25/2025 Refill [facility] [address] [place] [address] Sia Leon, PharmD [address] [place] [address] Social History Tobacco Use Types Packs/Day Years [...] Telephone Encounter - Sia Leon PharmD - 07/25/2025 4:27 PM EST Torsemide discontinued at discharged and replaced with furosemide. Please consider sending script for furosemide in order to update medboxes. Thank you! documented in this encounter Plan of Treatment Upcoming Encounters Date Type Department Care Team (Late st Contact Info) Description 09/07/2025 3:00 PM EST Office Visit [facility] [address] [place] [phone] Gail Fleming MD [address] [place] [phone] 09/21/2025 10:00 AM EST Telemedicine [facility] [address] [place] [address] [phone] Kayley Alanis RN 10/25/2025 2:30 PM EDT Office Visit [facility] [address] [place] [phone] Amanda Watkins MD [address] [place] [phone] documented as of this encounter Goals Goal [...] type 2 diabetes No Ann Farley PharmD Patient has chronic [...] Weekly blood pressure task No Kayley Alanis, RN Weekly blood pressure task Care Plan Weekly blood pressure task No Kayley Alanis, RN Patient has chronic kidney disease Care Plan Patient has chronic kidney disease No Kayley Alanis, RN Patient has chronic kidney disease Care Plan Patient has chronic kidney disease No Kayley Alanis, RN Weekly blood pressure task Care Plan [...] Plan Patient has chronic kidney disease No Teha Vick MA Weekly blood pressure task Care Plan Weekly blood pressure task No Sia Leon, PharmD Weekly blood pressure task Care Plan Weekly blood pressure task No Sia Leon PharmD Patient has chronic kidney disease Care Plan Patient has chronic kidney disease No Sia Leon PharmD Patient has chronic kidney disease Care Plan Patient has chronic kidney disease No Sia Leon PharmD documented as of this encounter Visit Diagnoses [...] 07/25/2025 Patient has chronic kidney disease 07/25/2025 Assessment Noted Time PHQ-9 Depression Total Score: 14 025 2:41 PM EDT documented as of this encounter Care Teams Senior It Project Manager Relationship Specialty Start Date End Date Amanda Watkins MD [address] [place] [address] PCP - General Family Medicine 04/07/19 Hiro Ram FNP [address] [place] [address] Nurse Practitioner Family Medicine 07/06/23 Raad Arias, TheaD [address] [place] [address] Pharmacist Internal Medicine 10/19/24 [facility] 03/08/25 documented as of this encounter
--- OUTSIDE RECORDS SUMMARY | 2025-07-26 18:41 | XMS_ITS | Encounter Summary ---
Author Organization [employer] Address [address] [facility] 7t [place] [address] Care Team Providers Care Outside Upholsterer Name Role Phone Amanda Watkins MD Primary Care Provide r Hiro Ram ENERGY SCHEDULER Unavailable Unavailable Raad Arias PharmD Unavailable [phone] Encounter Details Date Type Department Care Team (Late st Contact Info) Description 07/26/2025 Orders Only GENERIC EXTERNAL DATA DEPARTMENT [...] Description 09/07/2025 3:00 PM EST Office Visit [address] [address] Gail Fleming MD [address] [place] [phone] 09/21/2025 10:00 AM EST Telemedicine [address] [address] Kayley Alanis RN 10/25/2025 2:30 PM EDT Office Visit [address] [address] Amanda Watkins MD [address] [place] [phone] documented as of this encounter Goals Goal [...] Care Plan Weekly blood pressure task No Gonzalo Margie Patient has chronic kidney disease Care Plan Patient has chronic kidney disease No Gonzalo Margie Patient has chronic kidney disease Care Plan [...] Patient has chronic kidney disease No Kayley Alanis RN Patient has chronic kidney disease Care Plan Patient has chronic kidney disease No Kayley Alanis, PHILLIP Weekly blood pressure task Care Plan Weekly blood pressure task No Sia Leon PharmEmily Weekly blood pressure task Care Plan [...] METABOLIC PANEL Routine 07/26/2025 2:37 PM EST documented in this encounter Results * T4, Free (07/26/2025 2:37 PM EST) Free T4 (Free Thyroxine) 0.96 0.71 - 1.85 ng/dL [facility] 07/26/2025 2:37 PM EST 07/26/2025 4:00 PM EST us Waldemar Wilburn MD LAB BLOOD ORDERABL ES Final Result [facility] [address] [place] [phone] * (ABNORMAL) Basic Metabolic Panel (07/26/2025 2:37 PM EST) Sodium 137 135 - 145 mmol/L [facility] Potassium 4.7 3.3 - 5.1 mmol/L [facility] Chloride 95(L) 96 - 108 mmol/L [facility] Carbon Dioxide 34(H) 22 - 29 mmol/L [facility] Anion Gap 13 12 - 20 [facility] Urea Nitrogen (BUN) 32(H) 9 - 16 mg/dL [facility] Creatinine, Serum 1.30 0.5 - 1.4 mg/dL [facility] Estimated Glomerular Filt Rate 40 [facility] Comment:Chronic Kidney Disea se: Estimated GFR < 60 mL/min/[id number] Kidney Disease: Estimated GFR < 15 mL/min/1.73m2 Glucose 343(H) 60 - 115 mg/dL [facility] Calcium 8.9 8.4 - 10.2 mg/dL [facility] 07/26/2025 2:37 PM EST 07/26/2025 4:00 PM EST us Generic External Data Provider LAB BLOOD ORDERAB LES Final Result Performing Organization Address City/State/[facility] Co de Phone Number [facility] [address] [place] [phone] documented in this encounter Visit Diagnoses [...] documented as of this encounter Care Teams Outside Upholsterer Relationship Specialty Start Date End Date Amanda Watkins MD [address] [place] [address] PCP - General Family Medicine 04/07/19 Hiro Ram FNP [address] [place] [address] Nurse Practitioner Family Medicine 07/06/23 Raad Arias, TheaD [address] [place] [phone] Pharmacist Internal Medicine 10/19/24 [facility] 03/08/25 documented as of this encounter
--- OUTSIDE RECORDS SUMMARY | 2025-07-26 18:41 | XMS_ITS | Encounter Summary ---
Author Organization [employer] Address [address] [facility] [address] [place] [address] Care Team Providers Care Drapery Worker Name Role Phone Amanda Watkins MD Primary Care Provide r Hiro Ram CIVIL ENGINEERING PROFESSOR Unavailable Unavailable Raad Arias PharmD Unavailable [phone] Reason for Visit * Reason Onset Date Comments Med Refill 01/16/2025 Encounter Details Date Type Department Care Team ([facility] st Contact Info) Description 01/16/[address] [facility] [address] [place] [address] Amanda Watkins MD [address] [place] [address] Med Refill Social History Tobacco Use Types [...] 10:59 AM EDT Medication was sent to [facility] Pharm[facility] on 12/28/24 #30 with 2 refills. * Telephone Encounter - Radha Stevenson - 01/16/2025 10:54 AM EDT TC from pt requesting medication refill. Medications needing refill : levothyroxine (Synthroid, Levoxyl) 75 MCG tablet To be sent to: [facility] pharmacy documented in this encounter Plan of Treatment Upcoming Encounters Date Type Department Care Team (Late st Contact Info) Description 09/07/2025 3:00 PM EST Office Visit [facility] [address] [place] [address] Gail Fleming MD [address] [place] [address] 09/21/2025 10:[address] [facility] [address] [place] [phone] Kayley Alanis, RN 10/25/2025 2:30 PM EDT Office Visit [address] [address] Amanda Watkins MD [address] [place] [phone] documented as of this encounter Visit Diagnoses Not on filedocumented in this encounter Additional Health Concerns Assessment Noted Time PHQ-9 Depression Total Score: 0 09/01/19 1:18 PM EST documented as of this encounter Care Teams Drapery Worker Relationship Specialty Start Date End Date Amanda Watkins MD [address] [place] [phone] PCP - General Family Medicine 04/07/19 Hiro Ram FNP [address] [place] [phone] Nurse Practitioner Family Medicine 07/06/23 Raad Arias, Carlos [address] [place] [phone] Pharmacist Internal Medicine 10/19/24 Ja A 08/10/24 03/12/25 [facility] 03/08/25 documented as of this encounter
--- OUTSIDE RECORDS SUMMARY | 2025-07-26 18:41 | XMS_ITS | Data Portability ---
Author Organization [employer] [facility], [facility] Address [address] [place] [address] Care Team Providers Care Embedded Engineer Name Role Phone HIM CCA OTHER CRUZ MAURICE Primary Care Provider [phone] Assessment Encounter Date Assessment Date Assessment LastModified by Organization Details LastModified Time 03/27/2024 03/27/2024 I provided real -time medical direction via phone for this encounter, and was available for additional phone based assistance as needed. I have reviewed and agree with the Assessment and Plan as documented by the Solar Installer Technician. We discussed the diagnostic uncertainty of home [...] to call 911- verbalized understanding of instruction [email or web address] Not available 03/27/2024 16:48:02 05/29/2024 05/29/2024 service [...] in the field was performed by my bag worker colleague, as noted above, I provided real-time [...] Assessment and Plan as documented by the Solar Installer Technician. We discussed the diagnostic uncertainty of home [...] to call 911- verbalized understanding of instruction [email or web address] Not available 02/26/2025 13:27:16 03/23/2025 03/23/2025 service called for left shoulder pain found 74 lori with hx HTN chronic back pain fibromyalgic OA osteoporisis kidney injury (Cr 2.8), recently improved (Cr 1.2) c/o continued left shoulder pain refractory to prescribed PO oxycodone denies new trauma or injury of note records 2025-03-11 and 2025-03-09 from [facility] show R shoulder XR with chronic degenerative [...] 025 [facility], [address] [place] [address], [id number] 5 18:49:55 culture, urine 2023 024 [facility] (Centralized Electronic Ordering - All Locations), Patient Can Go To The Location Of Their Choice, [id number] 4 08:09:10 urinalysis, dipstick 2023 024 [facility], [address] [place] [address], [id number] 20:30:58 Referral None recorded. Procedures None recorded. Surgeries None recorded. Imaging None recorded. Medication Orders amoxicillin 875 mg-potassiu m clavulanate 125 mg tablet 2024 025 [facility], [address] [place] [address], [id number], 5 12:52:33 amoxicillin 500 mg-potassiu m clavulanate 125 mg tablet 2024 025 [email or web address] [facility], [address] [place] [address], [id number], 5 12:44:30 bacitracin 500 unit/gram topical ointment 2024 025 [facility], [address] [place] [address], [id number], 5 12:52:29 furosemide 10 mg/mL injection solution 2024 025 [email or web address] [facility], [address] [place] [address], [id number], 5 13:25:40 albuterol sulfate 2.5 mg/3 mL (0.083 %) solution for nebulizatio n 2024 025 [email or web address] 0 [facility], [address] [place] [address], [id number], 5 12:44:30 albuterol sulfate 2.5 mg/3 mL (0.083 %) solution for nebulizatio n 2024 025 [facility], [address] [place] [address], [id number], 5 12:52:33 albuterol sulfate HFA 90 mcg/actuati on aerosol inhaler 2024 025 [facility], [address] [place] [address], [id number], 5 12:52:28 Ciprodex 0.3 %-0.1 % ear drops,suspe nsion 2024 025 [facility], [address] [place] [address], [id number], 5 12:33:11 clotrimazol e 1 % topical cream 2023 024 [facility], [address] [place] [address], [id number], 4 10:37:01 bacitracin 500 unit/gram topical ointment 2023 024 [email or web address] [facility], [address] [place] [address], [id number], 4 11:28:20 bacitracin 500 unit/gram topical ointment 2023 024 [facility], [address] [place] [address], [id number], 14:30:32 Patient TargetsNo targets recorded. Patient Instructions Encounter Date Encounter Id Patient Instructions Last Modified By Organization Details Last Modified Time 03/27/2024 [id number] wound care* [email or web address] Not available 11:28:21 Reason for Referral None Reported. Results Created Date Observation Date Name Description Value Unit Range Abnormal Flag Note LastModifiedBy Organization Detail LastModifiedTime 05/29/2005/31/2024 URINE CULTU RE,CO MPREH ENSIV E urine culture,comp rehensive Final report Not Available [facility] ([facility]) [address] [place], [address], 05/31/2024 08:09:10 05/29/2005/31/2024 URINE CULTU RE,CO MPREH ENSIV E result 1 COMMEN T Mixed uroge nital mary Great er than 100,0 00 colon y formi ng units per mL Not Available [facility] ([facility]) [address] [facility], [place], [address], 05/31/2024 08:09:10 Result Notes None recorded. Problems Name Problem SNOMED Code Status Onset Date Resolution Date Notes Provider Name and Address Organization Details Recorded Time Essential hypertensio n 35454947 Active 2022 Len Nguyen MD [address] [place] [address],[address], [place], [address], [employer], [employer] 18:59:08 Arterial insufficien cy 697266141 Active 2023 Len Nguyen MD [address] [facility],[address], [place], [address], [employer], [employer] 18:58:53 Asthma 288961522 Active 2023 Len Nguyen MD [address] [facility],[address], [place], [address], [employer], [employer] 18:59:00 Atrial fibrillatio n 25444721 Active 2023 Len Nguyen MD [address] [place] [address],[address], [place], [address], [place] [facility] 18:59:03 Arthritis 9933700 Active 2023 Len Nguyen MD [address] [place] [address],[address], [place], [address], [place] [employer] 18:58:58 Chronic kidney disease stage 3B 623101162 Active 2023 Len Nguyen MD [address] [place] [address],[address], [place], [address], [place] [employer] [employer] 18:58:51 Chronic diastolic heart failure 790465059 Active 2024 Len Nguyen MD [address] [place] [address],[address], [place], [address], [place] [employer] [employer] 18:58:42 Hyperglycem ia due to type 2 diabetes mellitus 8643682124152 09 Active 2024 Len Nguyen MD [address] [place] [address],[address], [place], [address], [place] [employer] 18:58:45 Moderate recurrent major depression 12048832 Active 2024 Len Nguyen MD [address] [place] [address],[address], [place], [address], [place] [employer] 18:58:37 Morbid obesity 381773990 Active 2024 Len Nguyen MD [address] [place] [address],[address], [place], [address], [place] [employer] 18:58:39 Problem Notes None recorded. Medical Equipment None Reported. Allergies Allergen ID Allergen Name Allergen Category Reaction Reaction Severity Criticality Documentation Date Start Date Code Code System Note Provider Name and Address Organization Details Recorded Time 49126 hydrocodo ne Not available Not available Not available Not available 03/23/2025 5489 RxNorm Len Nguyen MD [address] [place] [address],[address], [place], [address], [place] [facility] [employer] [employer] 18:59:23 5119 codeine medicatio n Not available Not available Not available 12/30/2023 2670 RxNorm Not Available [employer] - production 5 10:35:11 Medications Name Sig [...] Not Available Not Available Not Available [employer] [place] Lite kit USE DIRECTED TO TEST BLOOD [...] Available No t Available [employer] Mickey 2 [place] USE DIRECTED EVERY 8 HOURS active Not [...] % 60 /min 108/57 mm[Hg] Not Available [employer] 5 17:25:24 Date Recorded Body height Body mass index (BMI) Body weight Provider Name and Address Organization Details Last Updated DateTime 02/26/2025 134.62 cm 61.5 kg/m2 778439 g Radha Foster MD [address] [facility],[address], [place], [address], [place] - [employer] 02/26/2025 17:57:17 Date Recorded Oxygen saturation Respiratory rate Heart rate Body temperature Systolic And Diastolic Provider Name and Address Organization Details Last Updated DateTime 5 92 % 18 /min 68 /min 98.8 [degF] 152/84 mm[Hg] Not Available [employer] 5 12:10:50 Date Recorded Oxygen saturation Body weight Body temperature Respiratory rate Heart rate Body height Systolic And Diastolic Provider Name and Address Organization Details Last Updated DateTime 5 98 % 970932. 08 g 99 [degF] 16 /min 72 /min 154.94 cm 141/71 mm[Hg] Not Available [employer] - production 5 18:57:20 Date Recorded Respiratory rate Oxygen saturation Body height Heart rate Body temperature Body weight Systolic And Diastolic Provider Name and Address Organization Details Last Updated DateTime 4 16 /min 94 % 157.48 cm 60 /min 98.7 [degF] 959787. 448 g 129/77 mm[Hg] Not Available [employer] - production 4 11:19:40 Date Recorded Heart rate Body height Body temperature Respiratory rate Oxygen saturation Body weight Systolic And Diastolic Provider Name and Address Organization Details Last Updated DateTime 4 58 /min 134.62 cm 99.3 [degF] 16 /min 95 % 248278. 632 g 150/73 mm[Hg] Not Available [employer] - production 4 17:02:13 Social History None [...] ICD10 Code Diagnosis IMO Codes Diagnosis Note [id number] Radha Foster MD [facility] - [facility] [address] [place] [address] 12/30/2023 14:10:14 12/31/2023 21:23:21 Cellulitis of lower limb 904101635 L03.119 left lower leg primarily ? starting [...] better staph coverage-a dvised to apply sparingly. [id number] Radha Foster MD Main - [facility] [address] [place] [address] 02/09/2024 16:16:11 02/10/2024 13:33:55 Cellulitis of lower limb 260051477 L03.119 left lower leg primarily, less on [...] better staph coverage-a dvised to apply sparingly. [id number] Angely Lake MD Main - [facility] [address] [place] [address] 02/23/2024 15:31:54 02/23/2024 22:21:20 Peripheral vascular disease 780526140 I73.9 73 year old female being evaluated [...] assessment and plan as documented by the bag worker. I provided real-time medical direction for this encounter and was immediatel y available to provide additional phone-base d assistance as needed. We discussed the diagnostic uncertaint y of home visits and associated risks. We discussed the need to seek care urgently/e mergently in the setting of any new or worsening symptoms. [id number] Radha Foster MD Main - [facility] [address] [place] [address] 03/27/2024 11:19:23 03/27/2024 22:47:07 Wound of skin 197633234 T14.8XXA Advised to elevate the leg/not use [...] reviewed she is only allergic to codeine. [id number] Len Nguyen MD Main - [facility] [address] [place] [address] 05/29/2024 17:02:10 05/30/2024 10:24:58 Tinea cruris 604219534 B35.6 Urinary symptoms 6078557 08 R39.9 [id number] Michelle Rg MD [facility] [address] [place] [address] 09/25/2024 17:25:19 09/26/2024 08:34:36 Otitis externa of right ear 1006313168 817575 H60.91 [id number] Radha Foster MD Main-[facility] [address] [address] 02/26/2025 12:10:42 02/26/2025 19:21:42 Peripheral edema 294226462 R60.0 12068 w/ cellulitis LLE-doubt DVT given no calf [...] exac erbation of chronic obstructive pulmonary disease 004949741 J44.1 167921 Status post neb sat 99% heart rate 71 and breath sounds clear- feels good/Needs to use 02 2lNC- sent in new albuterol mdi and nebulizer rx-patient 's nebulizer and her albuterol which may be outdated is at her daughters and she has run out of her albuterol MDI so new Rx sent. Advised using regularly will help with chronic dyspnea on exertion. [id number] Len Nguyen MD Main-[facility] Medical [address] [address] 03/23/2025 18:57:16 03/23/2025 23:47:02 Bilateral chronic pain of upper limbs 2384609924 7024042 M25.511 M25.512 G89.29 12864500 Health Concerns Section Related Observation LastModified by Organization Detai ls LastModified Time None Recorded Concern Status LastModified by Organization Details LastModified Time None Recorded Advance Directives Directive None Recorded Payers Insurance Date Sequence Insurance Name Policy Number Policy Meza Covered Member ID Meza Member ID Guarantor Name 03/23/2025 1 [facility] - DOS ON OR AFTER 2022 - DUAL ELIGIBLE - RESIDENTIAL OPTIONS AND ONE CARE (MEDICARE REPLACEMENT/ADV ANTAGE - HMO) Mary Lou Cisneros [id number] Mary Lou Cisneros Notes Date Note Type Note Provider Name and Address Organization Details Recorded Time 03/27/20 24 text/ht ml ROS as noted in the HPI CRC Nurse Triage Notes (Rishi Domínguez): Reason For Request: left leg pain Chief Complaints: Pain PMH: Diabetes, Hypertension, COPD/Asthma Other Allergies: NKDA Comments: Offbearer verified the member's name//address and phone number. [...] Denies SOB ................................. ................................. ................................. ................................. ......... Solar Installer Technician Note From Markell Villagomez: Pt s daughter/CG reports pt was seen at [facility] last week for cellulitis of the [...] Fulfilled Radha Foster MD [address] [facility],[address], [place], [address], [facility] [place] [employer] [facility] 03/27/2024 16:49:56 05/29/20 24 text/ht ml HPI: pmhx: UTI, candidiasis of vagina UTI, urine retention.Call returned to Mary Lou Warner Gomsea to triage below. Reports having rash on callie area x 1 week. Per daughter no fluid filled spots. Small red pin point spots. Pt also having urinary frequency. Has applied Vaseline to area with mild relief. Per daughter concerned as pt is DM and has been scratching area concerned for infection. Unable to bring pt to [place] at [facility] as pt is bed bound. Agrees to [employer] referral. Confirmed address, contact number and allergies. ................................. ................................. ................................. ................................. ......... CRC Nurse Triage Notes (Melinda Melvin): Chief Complaints: Rash, UTI/Pyelonephritis PMH: COPD/Asthma, Diabetes, Hypertension, COPD/Asthma Other Allergies: CODIENE Comments: CRC RN did not require any additional information to process this visit. Solar Installer Technician Organization Information for [employer] Legal Name: [employer]. Address: [address] [place] [address], Boat Hoist Operator: Jhon Strickland MD CLIA No.: [id number] Solar Installer Technician POC Test Results from [facility] Anderson - [facility] Blood Glucose Measurement (16:52:17) Blood Glucose: 335 mg/dL Urine Dipstick (16:52:27) Urine leukocytes: + ALVIN Urine nitrites: + NIT Urine urobilinogen: - URO Urine protein: +/- PRO Urine pH: 6.0 pH Urine blood: 50 lesli/ul BLO Urine specific gravity: 1.005 SG Urine ketones: - KET Urine bilirubin: - ROSI Urine glucose: ++++ GLU ................................. ................................. ................................. ................................. ......... Solar Installer Technician Note From Justin Jerman: [facility] visit for female pt. Pt presents with family and APPRAISER AUDITOR. Pt has reportedly had redness and irritation in her groin for 1 week in addition to high blood sugars. V/S taken as listed. Pt afebrile, though temp seems to be elevated with pt having taken acetaminophen today. APPRAISER AUDITOR changed pt's diaper and redness was noted in addition to smell consistent with possible fungal infection. Obtained urine sample positive for leukocytes and nitrates and blood and glucose. Blood glucose elevated at 335 mg/dL. Family reports difficulty maintaining blood sugar and that pt has not adhered to dietary restrictions. Urine culture obtained. Consulted with [facility] Dr. Nguyen who prescribed clotrimazole and ordered urine culture. Reviewed red flags for ED. Pt education provided. Culture delivered to [facility]. [facility] Lab Orders: culture, urine: Performed ................................. ................................. ................................. ................................. ......... Disposition: Fulfilled Len Nguyen MD [address] [place] [address],[address], [place], [address], [employer] 05/29/2024 22:50:45 09/25/19 25 text/ht ml CRC [...] s/s and seek emergency treatment if needed. Solar Installer Technician Organization Information for Markell Villagomez Business Legal Name: [facility] [employer] Address: [address] [place] [address], Boat Hoist Operator: Rob Bhagat MD IA No.: [id number] Solar Installer Technician POC Test Results from [employer] Rapid COVID antigen (17:31:49) COVID: - Rapid [...] reported s/s and seek emergency treatment if needed.[facility] HPI: known FM, chronic pain, uses oxycodone and gabapentin for this. 3-7d R ear pain. some sinus congestion ................................. ................................. ................................. ................................. ......... Solar Installer Technician Note From Markell Villagomez: This 74-year-old female [...] this plan. ................................. ................................. ................................. ................................. ......... [facility] Consulted: Michelle Rg ................................. ................................. ................................. ................................. ......... Disposition: Fulfilled Michelle Rg MD [address] [place] [address],[address], [place], [address], [employer] 09/25/2024 18:01:43 02/27/20 25 text/ht ml ROS as noted in the HPI CRC Nurse Triage Notes (Agustín Shipley): Reason For Request: Pt's APPRAISER AUDITOR reporting discoloration changes in her legs (redness)Denies: [...] 74 y.o female complains of Extremity PainPatient's APPRAISER AUDITOR calling reporting patient is having red discoloration to L lower leg for the last two weeks. APPRAISER AUDITOR reports this has happened before and the [...] H&H on 08/02/2024 was 7.4 and 25.3 Solar Installer Technician Organization Information for [employer] Josh Kapadia Legal Name: [employer]. Address: [address] [place] [address], Boat Hoist Operator: Jhon Strickland MD CLIA No.: [id number] Solar Installer Technician POC Test Results from [employer] iSTAT Chem8+ (12:24:44) Na: 135 mEq/L K: 4.2 mEq/L Cl: 93 mEq/L iCa: 1.05 mmol/L TCO2: 32 mmol/L Glu: 264 mg/dL BUN: 23 mg/dL Crea: 1.4 mg/dL Hct: 24 % Hb: 8.2 g/dL A mmol/L Cartridge Number: [id number] Attachments uploaded as part of this test result can be found under Documents section. ................................. ................................. ................................. ................................. ......... Solar Installer Technician Note From [place]: Encountered patient supine [...] below the knee; peripheral pulses present throughout. [facility] contacted: reports they will treat patient for a suspected infection while also addressing possible fluid retention. Augmentin x1 administered. Albuterol neb treatment x1 administered. 40mg IM Furosemide administered. All medications administered after reconciling r ights with patient and family. [facility] reports they will send a prescription [...] states she is comfortable remaining home today. [facility] Lab Orders: BMP, serum or plasma: Performed [facility] Medication Orders: amoxicillin 500 mg-potassium clavulanate 125 mg tablet: Administered furosemide 10 mg/mL injection solution: Administered albuterol sulfate 2.5 mg/3 mL (0.083 %) solution for nebulization: Administered ................................. ................................. ................................. ................................. ......... [facility] Consulted: Radha Foster ................................. ................................. ................................. ................................. ......... Disposition: Fulfilled Radha Foster MD [address] [place] [address],[address], [place], [address], TINO GONZALEZ 02/26/2025 18:08:10 03/23/20 25 text/ht [...] emergency care. ................................. ................................. ................................. ................................. ......... Solar Installer Technician Note From Jerman Anderson: [facility] visit for female patient complaining of left shoulder pain. Patient is Niuean-speaking and an segment block layer was used by phone throughout visit. Patient [...] taken is listed. Patient afebrile. Consulted with [facility] doctor timothy who advised that do patients chronic kidney disease we would not be able to administer NSAIDs or any other pain agents at this time. Patient told that she would have to follow up with primary care or go to the emergency department for any stronger pain medication. Patient education provided. ................................. ................................. ................................. ................................. ......... [facility] Consulted: Len Nguyen ................................. ................................. ................................. ................................. ......... Disposition: Fulfilled Len Nguyen MD [address] [place] [address],[address], [place], [address], [employer] 03/23/2025 22:05:38 OBGyn Episode No OBEpisode recorded.
--- OUTSIDE RECORDS SUMMARY | 2025-07-26 18:41 | XMS_ITS | Encounter Summary ---
Author Organization [employer] Address 75 [facility] 7t [place] [address] Care Team Providers Care Salvationist Name Role Phone Amanda Watkins MD Primary Care Provide r Hiro Ram COVERING MACHINE OPERATOR Unavailable Unavailable Raad Arias PharmD Unavailable [phone] Reason for Visit * Reason Onset Date Comments Durable Medical Equipment 07/17/2025 DME: L [place] Encounter Details Date Type Department Care Team ([facility] st Contact Info) Description 07/17/2025 Telephone [facility] [address] [place] [address] Amanda Watkins MD [address] [place] [address] Durable Medical Equipment (DME: LMN) Social History Tobacco Use Types Packs/Day Years [...] * Telephone Encounter - Margie Sánchez - 07/23/2025 9:39 AM EST Letters of medical necessity were sent via Fax to [facility]. Confirmation was uploaded to Media. * Telephone Encounter - Margie Sánchez - 07/17/2025 10:18 AM EST Letters of Medical Necessity were generated by provider. Both letters were sent to Provider for signature via Docusign. documented in this encounter Plan of Treatment Upcoming Encounters Date Type Department Care Team (Late st Contact Info) Description 09/07/2025 3:00 PM EST Office Visit [facility] [address] [place] [address] Gail Fleming MD [address] [place] [address] 09/21/2025 10:00 AM EST Telemedicine [facility] [address] [place] [address] Kayley Alanis RN 10/25/2025 2:30 PM EDT Office Visit [facility] [address] [place] [address] Amanda Watkins MD [address] [place] [address] documented as of this encounter Goals Goal [...] patients manage their type 2 diabetes No nAn Farley PharmD Patient has chronic kidney disease [...] Plan Weekly blood pressure task No Ronan Luois Patient has chronic kidney disease Care Plan [...] blood pressure task No Kayley Alanis RN Patient has chronic kidney disease Care Plan Patient has chronic kidney disease No Kayley Alanis RN Patient has chronic kidney disease Care Plan Patient has chronic kidney disease No Kayley Alanis RN documented as of this [...] 07/23/2025 Patient has chronic kidney disease 07/23/2025 Assessment Noted Time PHQ-9 Depression Total Score: 14 025 2:41 PM EDT documented as of this encounter Care Teams Salvationist Relationship Specialty Start Date End Date Amanda Watkins MD [address] [place] [address] PCP - General Family Medicine 04/07/19 Hiro Ram FNP [address] [place] [address] Nurse Practitioner Family Medicine 07/06/23 Raad Arias, TheaD [address] [place] [address] Pharmacist Internal Medicine 10/19/24 [facility] 03/08/25 documented as of this encounter
--- OUTSIDE RECORDS SUMMARY | 2025-07-26 18:41 | XMS_ITS | Encounter Summary ---
Author Organization [employer] Address 75 [facility] 7t [place] [address] Care Team Providers Care Aircraft Charter Dispatcher Name Role Phone Amanda Watkins MD Primary Care Provide r Hiro Ram LIVING SUPERVISOR Unavailable Unavailable Raad Arias PharmD Unavailable [phone] Reason for Visit * Reason Comments Med Refill Encounter Details Date Type Department Care Team (Late st Contact Info) Description 07/20/2025 Refill [facility] 230 [place] [address] Amanda Watkins MD 230 [place], [place] [phone] Chronic bilateral low back pain with bilateral [...] Description 09/07/2025 3:00 PM EST Office Visit [address] [address] Gail Fleming MD [address] [place] [address] 09/21/2025 10:00 AM EST Telemedicine [address] [address] aKyley Alanis RN 10/25/2025 2:30 PM EDT Office Visit [address] [address] Amanda Watkins MD [address] [place] [address] documented as of this encounter Goals Goal Patient Goal Type Associated Problems Recent Progress Patient-Stated? Author Help patients manage their type 2 diabetes Care Plan Help patients manage their type 2 diabetes No Ann Farley, TheaD Weekly blood pressure task Care Plan Weekly blood pressure task No Ann Farley, Carlos Help patients manage their type 2 diabetes [...] Care Plan Weekly blood pressure task No Aamnda Watkins MD Weekly blood pressure task Care [...] has chronic kidney disease No Margie Sánchez documented as of this encounter Visit Diagnoses [...] 07/17/2025 Patient has chronic kidney disease 07/17/2025 Assessment Noted Time PHQ-9 Depression Total Score: 14 025 2:41 PM EDT documented as of this encounter Care Teams Aircraft Charter Dispatcher Relationship Specialty Start Date End Date Amanda Watkins MD [address] [place] [address] PCP - General Family Medicine 04/07/19 Hiro Ram FNP [address] [place] [address] Nurse Practitioner Family Medicine 07/06/23 Raad Arias, TheaD [address] [place] [address] Pharmacist Internal Medicine 10/19/24 [facility] 03/08/25 documented as of this encounter
--- OUTSIDE RECORDS SUMMARY | 2025-07-26 18:41 | XMS_ITS | Encounter Summary ---
Author Organization [employer] Address 75 [facility] 7t [place] [address] Care Team Providers Care Nailhead Setter Name Role Phone Amanda Watkins MD Primary Care Provide r Hiro Ram Unavailable Unavailable Raad Arias PharmD Unavailable [phone] Reason for Visit * Reason Comments Med Refill Encounter Details Date Type Department Care Team (Late st Contact Info) Description 11/18/2023 Refill [facility] [address] [place] [address] Hiro Ram FNP Social History Tobacco Use [...] Description 09/07/2025 3:00 PM EST Office Visit [facility] [address] [place] [address] Gail Fleming MD [address] [place] [address] 09/21/2025 10:00 AM EST Telemedicine [address] [address] Kayley Alanis RN 10/25/2025 2:30 PM EDT Office Visit [address] [address] Amanda Watkins MD [address] [place] [address] documented as of this encounter Visit Diagnoses Not on filedocumented in this encounter Additional Health Concerns Assessment Noted Time PHQ-9 Depression Total Score: 8 07/19/20 23 11:34 AM EST documented as of this encounter Care Teams Nailhead Setter Relationship Specialty Start Date End Date Amanda Watkins MD [address] [place] [address] PCP - General Family Medicine 04/07/19 Hiro Ram FNP [address] [place] [address] Nurse Practitioner Family Medicine 07/06/23 Raad Arias, PharmD [address] [place] [address] Pharmacist Internal Medicine 10/19/24 [facility] 07/03/22 08/16/24 Ja A 08/10/24 03/12/25 [facility] 03/08/25 documented as of this encounter
--- OUTSIDE RECORDS SUMMARY | 2025-07-26 18:41 | XMS_ITS | Encounter Summary ---
Author Organization [employer] Address 75 [facility] 7t [place] [address] Care Team Providers Care Lithograph Designer Name Role Phone Amanda Watkins MD Primary Care Provide r Hiro Ram TUBULAR SPLITTING MACHINE TENDER Unavailable Unavailable Raad Arias PharmD Unavailable [phone] Reason for Visit * Reason Comments Med Refill Encounter Details Date Type Department Care Team (Late st Contact Info) Description 05/28/2025 Refill [facility] 230 [place] [address] Amanda Watkins MD 230 [place], [place] [phone] Chronic bilateral low back pain with bilateral [...] Description 09/07/2025 3:00 PM EST Office Visit [address] [address] Gail Fleming MD [address] [place] [address] 09/21/2025 10:00 AM EST Telemedicine [address] [address] Kayley Alanis RN 10/25/2025 2:30 PM EDT Office Visit [facility] [address] [place] [address] Amanda Watkins MD [address] [place] [address] documented as of this encounter Visit Diagnoses Diagnosis Chronic bilateral low back pain with bilateral sciatica documented in this encounter Additional Health Concerns Assessment Noted Time PHQ-9 Depression Total Score: 14 025 2:41 PM EDT documented as of this encounter Care Teams Lithograph Designer Relationship Specialty Start Date End Date Amanda Watkins MD [address] [place] [address] PCP - General Family Medicine 04/07/19 Hiro Ram FNP 230 [place] [address] Nurse Practitioner Family Medicine 07/06/23 Raad Arias, TheaD [address] [place] [address] Pharmacist Internal Medicine 10/19/24 [facility] 03/08/25 documented as of this encounter
--- OUTSIDE RECORDS SUMMARY | 2025-07-26 18:41 | XMS_ITS | Encounter Summary ---
Author Organization [employer] Address 75 [facility] 7t [place] [address] Care Team Providers Care Steam Turbine Operator Name Role Phone Amanda Watkins MD Primary Care Provide r Hiro Ram COOK SPECIALTY FOREIGN FOOD Unavailable Unavailable Raad Arias PharmD Unavailable [phone] Reason for Visit * Reason Onset Date Comments Med Refill 01/03/2025 Encounter Details Date Type Department Care Team (Late st Contact Info) Description 01/03/2025 Refill [facility] 230 [place] [address] Amanda Watkins MD 230 [place], [place] [phone] Chronic bilateral low back pain with bilateral [...] not with her 12/10/23 - [facility] Tele GRINDER GEAR RV * Telephone Encounter - Sky Sánchez - 01/03/2025 1:12 PM EDT TC from pt requesting medication refill. Medications needing refill: oxyCODONE-acetaminophen (Percocet) 5-325 MG tablet To be sent to: [facility] - [place], [place] - [address] documented in this encounter Plan of Treatment Upcoming Encounters Date Type Department Care Team (Late st Contact Info) Description 09/07/2025 3:00 PM EST Office Visit [address] [address] G[place] [address] 09/21/2025 10:00 AM EST Telemedicine [address] [address] Kayley Alanis RN 10/25/2025 2:30 PM EDT Office Visit [address] [place] [address] Amanda [place] [address] documented as of this encounter Visit Diagnoses Diagnosis Chronic bilateral low back pain with bilateral sciatica documented in this encounter Additional Health Concerns Assessment Noted Time PHQ-9 Depression Total Score: 0 09/01/19 1:18 PM EST documented as of this encounter Care Teams Steam Turbine Operator Relationship Specialty Start Date End Date Amanda Watkins MD [address] [place] [address] PCP - General Family Medicine 04/07/19 Hiro Ram FNP [address] [place] [address] Nurse Practitioner Family Medicine 07/06/23 Raad Arias, TheaD [address] [place] [address] Pharmacist Internal Medicine 10/19/24 Ja A 08/10/24 03/12/25 [facility] 03/08/25 documented as of this encounter
--- OUTSIDE RECORDS SUMMARY | 2025-07-26 18:41 | XMS_ITS | Encounter Summary ---
Author Organization [employer] Address 75 [facility] 7t [place] [address] Care Team Providers Care Coat Tailor Name Role Phone Amanda Watkins MD Primary Care Provide r Hiro Ram MALTSTER Unavailable Unavailable Raad Arias PharmD Unavailable [phone] Encounter Details Date Type Department Care Team (Latest Contact Info) Description 07/26/2025 Travel Social History Tobacco Use Types Packs/Day [...] Description 09/07/2025 3:00 PM EST Office Visit [address] [address] Gail Fleming MD [address] [place] [address] 09/21/2025 10:00 AM EST Telemedicine [address] [address] Kayley Alanis RN 10/25/2025 2:30 PM EDT Office Visit [address] [address] Amanda Watkins MD [address] [place] [address] documented as of this encounter Goals Goal Patient Goal Type Associated Problems Recent Progress Patient-Stated? Author Help patients manage their type 2 diabetes Care Plan Help patients manage their type 2 diabetes No Ann Farley, PharmEmily Weekly blood pressure [...] chronic kidney disease No Kayley Alanis RN Weekly blood pressure [...] [place] documented as of this encounter Visit [...] documented as of this encounter Care Teams Coat Tailor Relationship Specialty Start Date End Date Amanda Watkins MD [address] [place] [address] PCP - General Family Medicine 04/07/19 Hiro Ram FNP [address] [place] [address] Nurse Practitioner Family Medicine 07/06/23 Raad Arias, TheaD [address] [place] [address] Pharmacist Internal Medicine 10/19/24 [facility] 03/08/25 documented as of this encounter
--- OUTSIDE RECORDS SUMMARY | 2025-07-26 18:41 | XMS_ITS | Encounter Summary ---
Author Organization [employer] Address 75 [facility] 7t [place] [address] Care Team Providers Care Welding Machine Operator Friction Name Role Phone Amanda Watkins MD Primary Care Provide r Hiro Ram FRUIT HARVEST MACHINE OPERATOR Unavailable Unavailable Raad Arias PharmD Unavailable [phone] Reason for Visit * Reason Onset Date Comments Chart Prep 07/25/2025 Encounter Details Date Type Department Care Team ([facility] st Contact Info) Description 07/25/2025 Telephone [facility] [address] [place] [address] Amanda Watkins MD [address] [place] [address] Chart Prep Social History Tobacco Use Types [...] encounter Miscellaneous Notes * Telephone Encounter - Thea Vick [place] - 07/25/2025 11:39 AM EST Chart Prep Labs: done Images: done Referrals: appointment pending Vaccines due: Covid, Flu, Tdap, RSV, and Zoster Screenings: eye exam, foot exam, and Hep C Screening Overdue care gaps: Glucose, PHQ-9, and WENDI-7 documented in this encounter Plan of Treatment Upcoming Encounters Date Type Department Care Team (Late st Contact Info) Description 09/07/2025 3:00 PM EST Office Visit [address] [address] Gail Fleming MD [address] [place] [address] 09/21/2025 10:00 AM EST Telemedicine [address] [address] Kayley Alanis RN 10/25/2025 2:30 PM EDT Office Visit [facility] [address] [place] [address] Amanda Watkins MD [address] [place] [address] documented as of this encounter Goals Goal Patient Goal Type Associated Problems Recent Progress Patient-Stated? Author Help patients manage their type 2 diabetes Care Plan Help patients manage their type 2 diabetes No Ann Farley PharmD Weekly blood pressure task Care Plan Weekly blood pressure task No Ann Farley PharmEmily Help patients manage their type 2 [...] has chronic kidney disease No Sia Leon PharmEmily Patient has chronic kidney disease Care [...] documented as of this encounter Care Teams Welding Machine Operator Friction Relationship Specialty Start Date End Date Amanda Watkins MD [address] [place] [address] PCP - General Family Medicine 04/07/19 Hiro Ram FNP [address] [place] [address] Nurse Practitioner Family Medicine 07/06/23 Raad Arias, TheaD [address] [place] [address] Pharmacist Internal Medicine 10/19/24 [facility] 03/08/25 documented as of this encounter
--- OUTSIDE RECORDS SUMMARY | 2025-07-26 18:42 | XMS_ITS | Encounter Summary ---
Author Organization [employer] Address 75 [facility] 7t [place] [address] Care Team Providers Care Offset Press Operator Helper Name Role Phone Amanda Watkins MD Primary Care Provide r Hiro Ram RN CASE MANAGER Unavailable Unavailable Raad Arias PharmD Unavailable [phone] Reason for Visit * Reason Onset Date Comments Hospital Follow-up 04/04/2024 Encounter Details Date Type Department Care Team (Late st Contact Info) Description 04/04/2024 Telephone [facility] MED[facility]INE 230 [place] [address] Amanda Watkins MD [address] [place], [place] [phone] Hospital Follow-up Social History Tobacco Use Types [...] from pt requesting a HDF appt. Hospital: [facility] Date of admission: 03/18 Discharge date: 03/21 Diagnosed: Cellulitis documented in this encounter Plan of Treatment Upcoming Encounters Date Type Department Care Team (Late st Contact Info) Description 09/07/2025 3:00 PM EST Office Visit [address] [address] Gail Fleming MD [address] [place] [address] 09/21/2025 10:00 AM EST Telemedicine [address] [address] Kayley Alanis RN 10/25/2025 2:30 PM EDT Office Visit [address] [address] Amanda Watkins MD [address] [place] [address] documented as of this encounter Visit Diagnoses Not on filedocumented in this encounter Additional Health Concerns Assessment Noted Time PHQ-9 Depression Total Score: 10 024 3:23 PM EDT documented as of this encounter Care Teams Offset Press Operator Helper Relationship Specialty Start Date End Date Amanda Watkins MD [address] [place] [address] PCP - General Family Medicine 04/07/19 Hiro Ram FNP [address] [place] [address] Nurse Practitioner Family Medicine 07/06/23 Raad Arias, TheaD [address] [place] [address] Pharmacist Internal Medicine 10/19/24 [facility] 07/03/22 08/16/24 Ja [facility] 08/10/24 03/12/25 [facility] 03/08/25 documented as of this encounter
--- OUTSIDE RECORDS SUMMARY | 2025-07-26 18:42 | XMS_ITS | Encounter Summary ---
Author Organization [employer] Address 75 [facility] 7t [place] [address] Care Team Providers Care Coin Machine Operator Name Role Phone Amanda Watkins MD Primary Care Provide r Hiro Ram POLE PEELING MACHINE OPERATOR Unavailable Unavailable Raad Arias PharmD Unavailable Reason for Visit * Reason Onset Date Comments Durable Medical Equipment 07/26/2024 Encounter Details Date Type Department Care Team (Late st Contact Info) Description 07/26/2024 Telephone [facility]INE [address] [place] [address] Amanda Watkins MD [address] [place] [address] Durable Medical Equipment Social History Tobacco Use [...] Description 09/07/2025 3:00 PM EST Office Visit [facility] [address] [place] [address] Gail Fleming MD [address] [place] [address] 09/21/2025 10:00 AM EST Telemedicine [facility] [address] [place] [address] Kayley Alanis RN 10/25/2025 2:30 PM EDT Office Visit [facility] [address] [place] [address] Amanda Watkins MD [address] [place] [address] documented as of this encounter Visit Diagnoses Not on filedocumented in this encounter Additional Health Concerns Assessment Noted Time PHQ-9 Depression Total Score: 10 024 3:23 PM EDT documented as of this encounter Care Teams Coin Machine Operator Relationship Specialty Start Date End Date Amanda Watkins MD [address] [place] [address] PCP - General Family Medicine 04/07/19 Hiro Ram FNP [address] [place] [address] Nurse Practitioner Family Medicine 07/06/23 Raad Arias, TheaD [address] [place] [address] Pharmacist Internal Medicine 10/19/24 [facility] 07/03/22 08/16/24 Ja A 08/10/24 03/12/25 [facility] 03/08/25 documented as of this encounter
--- OUTSIDE RECORDS SUMMARY | 2025-07-26 18:42 | XMS_ITS | Encounter Summary ---
Author Organization [employer] Address 75 [facility] 7t [place] [address] Care Team Providers Care Card Grinder Helper Name Role Phone Amanda Watkins MD Primary Care Provide r Hiro Ram BREASTER Unavailable Unavailable Raad Arias PharmD Unavailable [phone] Reason for Visit * Reason Onset Date Comments Nurse Triage 04/17/2025 Encounter Details Date Type Department Care Team ([facility] st Contact Info) Description 04/17/2025 Telephone [facility] MEDICINE [address] [place] [address] Amanda Watkins MD [address] [place] [address] Nurse Triage Social History Tobacco Use Types [...] Mary Lou Cisneros to triage below at [phone]. No answer, line not available. . Call to all other alterante numbers. Left VM to return call. Number listed as contact in CD[facility] visit notes as [phone]. No answer, LVM to return call to [facility] triage line. Pt has my [...] crying screaming in pain. Contact musa at [phone] documented in this encounter Plan of Treatment Upcoming Encounters Date Type Department Care Team (Late st Contact Info) Description 09/07/2025 3:00 PM EST Office Visit [facility] MEDICINE [address] [place] [address] Gail Fleming MD [address] [place] [address] 09/21/2025 10:00 AM EST Telemedicine [address] [address] Kayley Alanis RN 10/25/2025 2:30 PM EDT Office Visit [address] [address] Amanda Watkins MD [address] [place] [address] documented as of this encounter Visit Diagnoses Not on filedocumented in this encounter Additional Health Concerns Assessment Noted Time PHQ-9 Depression Total Score: 14 025 2:41 PM EDT documented as of this encounter Care Teams Card Grinder Helper Relationship Specialty Start Date End Date Amanda Watkins MD [address] [place] [address] PCP - General Family Medicine 04/07/19 Hiro Ram FNP [address] [place] [address] Nurse Practitioner Family Medicine 07/06/23 Raad Arias, TheaD [address] [place] [address] Pharmacist Internal Medicine 10/19/24 [facility] 03/08/25 documented as of this encounter
--- OUTSIDE RECORDS SUMMARY | 2025-07-26 18:42 | XMS_ITS | Encounter Summary ---
Author Organization [employer] Address 75 [facility] 7t [place] [address] Care Team Providers Care Meat Puller Name Role Phone Amanda Watkins MD Primary Care Provide r Hiro Ram LOG HANDLING EQUIPMENT OPERATOR Unavailable Unavailable Raad Arias PharmD Unavailable [phone] Encounter Details Date Type Department Care Team (Late st Contact Info) Description 06/27/2024 Orders Only [facility] MEDICINE 230 [place] [address] Amanda Watkins MD [address] [place] [address] Social History Tobacco Use Types Packs/Day Years [...] Description 09/07/2025 3:00 PM EST Office Visit [facility]INE [address] [place] [address] Gail Fleming MD [address] [place] [address] 09/21/2025 10:00 AM EST Telemedicine [address] [address] Kayley Alanis RN 10/25/2025 2:30 PM EDT Office Visit [address] [address] Amanda Watkins MD [address] [place] [address] documented as of this encounter Visit Diagnoses Not on filedocumented in this encounter Additional Health Concerns Assessment Noted Time PHQ-9 Depression Total Score: 10 024 3:23 PM EDT documented as of this encounter Care Teams Meat Puller Relationship Specialty Start Date End Date Amanda Watkins MD [address] [place] [address] PCP - General Family Medicine 04/07/19 Hiro Ram FNP 230 [place] [address] Nurse Practitioner Family Medicine 07/06/23 Raad Arias, TheaD [address] [place] [address] Pharmacist Internal Medicine 10/19/24 [facility] 07/03/22 08/16/24 Ja [facility] 08/10/24 03/12/25 [facility] 03/08/25 documented as of this encounter
--- OUTSIDE RECORDS SUMMARY | 2025-07-26 18:42 | XMS_ITS | Encounter Summary ---
Author Organization [employer] Address [address] [facility] [address] [place] [address] Care Team Providers Care Guide Domestic Tour Name Role Phone Amanda Watkins MD Primary Care Provide r Hiro Ram TELECOMMUNICATOR SUPERVISOR Unavailable Unavailable Raad Arias PharmD Unavailable [phone] Reason for Visit * Reason Onset Date Comments Hospital Follow-up 03/23/2024 Encounter Details Date Type Department Care Team (Late st Contact Info) Description 03/23/2024 Telephone [facility] [address] [place] [address] Amanda Watkins MD [address] [place], [place] [phone] Hospital Follow-up Social History Tobacco Use Types [...] from pt requesting a HDF appt. Hospital: [facility] Date of admission: 03/18 Discharge date: 03/21 Diagnosed: Cellulitis documented in this encounter Plan of Treatment Upcoming Encounters Date Type Department Care Team (Late st Contact Info) Description 09/07/2025 3:00 PM EST Office Visit [facility] [address] [place] [phone] Gail Fleming MD [address] [place] [phone] 09/21/2025 10:00 AM EST Telemedicine [address] [address] Kayley Alanis RN 10/25/2025 2:30 PM EDT Office Visit [facility] [address] [place] [phone] Amanda Watkins MD [address] [place] [phone] documented as of this encounter Visit Diagnoses Not on filedocumented in this encounter Additional Health Concerns Assessment Noted Time PHQ-9 Depression Total Score: 10 024 3:23 PM EDT documented as of this encounter Care Teams Guide Domestic Tour Relationship Specialty Start Date End Date Amanda Watkins MD [address] [place] [address] PCP - General Family Medicine 04/07/19 Hiro Ram FNP [address] [place] [address] Nurse Practitioner Family Medicine 07/06/23 Raad Arias, TheaD [address] [place] [address] Pharmacist Internal Medicine 10/19/24 [facility] 07/03/22 08/16/24 Ja A 08/10/24 03/12/25 [facility] 03/08/25 documented as of this encounter
--- OUTSIDE RECORDS SUMMARY | 2025-07-26 18:42 | XMS_ITS | Encounter Summary ---
Author Organization [employer] Address [address] [facility] [address] [place] [address] Care Team Providers Care Newspaper Publisher Name Role Phone Amanda Watkins MD Primary Care Provide r Hiro Ram PERFORMANCE SOLUTIONS SPECIALIST Unavailable Unavailable Raad Arias PharmD Unavailable [phone] Encounter Details Date Type Department Care Team (Late st Contact Info) Description 12/22/2024 Orders Only [facility] [address] [place] [address] Amanda Watkins MD [address] [place] [address] Social History Tobacco Use Types Packs/Day Years [...] Description 09/07/2025 3:00 PM EST Office Visit [address] [address] Gail Fleming MD [address] [place] [address] 09/21/2025 10:00 AM EST Telemedicine [address] [address] Kayley Alanis RN 10/25/2025 2:30 PM EDT Office Visit [address] [address] Amanda Watkins MD [address] [place] [phone] documented as of this encounter Procedures Procedure [...] AM EDT Narrative 01/05/2025 9:59 AM EDT [address] [address] XRay Report Signed Patient: Mary Lou Godwin Z MR#: [id number] : 1950 Acct:[id number] Age/Sex: 74 / F ADM Date: 01/05/25 Loc: HO.ED Attending Dr: Ordering Physician: Yelena Alvarez MD Date of Service: 01/05/25 Procedure(s): XR humerus RT Accession Number(s): [id number] cc: Amanda Watkins MD; Yelena Alvarez MD [...] 01/05/25 0956 DD/ 0935 TD/TT: 01/05/25 0948 Base Filler Operator: Procedure Note Donotuseinterpreter, Image - 01/05/[address] [address] XRay Report Signed Patient: Mary Lou Godwin ZMR#: M [id number] : 1950cct:[id number] Age/Sex: 74 / FADM Date: 01/05/25 Loc: HO.ED Attending Dr: Ordering Physician: Yelena Alvarez MD Date of Service: 01/05/25 Procedure(s): XR humerus RT Accession Number(s): [id number] cc: Amanda Watkins MD; Yelena Alvarez MD [...] Dilip Hammer MD in OV> 01/05/2556 DD/ 0935 TD/TT: 01/05/25 0948 Base Filler Operator: [facility] External Provider IMG XR PROCEDURES Edited Result - Final * XR Shoulder 2+ Views Right (01/05/2025 8:27 AM EDT) Anatomical Region Laterality Modality Upper Extremities, Shoulder Right Radi ographic Imaging 01/05/2025 8:27 AM EDT Narrative 01/05/2025 9:59 AM EDT [address] [address] XRay Report Signed Patient: Mary Lou Godwin MR#: [id number] : 1950 Acct:[id number] Age/Sex: 74 / F ADM Date: 01/05/25 Loc: HO.ED Attending Dr: Ordering Physician: Yelena Alvarez MD Date of Service: 01/05/25 Procedure(s): XR shoulder RT min 2V Accession Number(s): [id number] cc: Amanda Watkins MD; Yelena Alvarez MD [...] MD in OV> 01/05/2556 DD/ 6 TD/TT: 01/05/25 0948 Base Filler Operator: Procedure Note Donotuseinterpreter, Image - 01/05/2025 [place] [address] XRay Report Signed Patient: Mary Lou Godwin ZMR#: M [id number] : 9Acct:[id number] Age/Sex: 74 / FADM Date: 01/05/25 Loc: .ED Attending Dr: Ordering Physician: Yelena Alvarez MD Date of Service: 01/05/25 Procedure(s): XR shoulder RT min 2V Accession Number(s): [id number] cc: Amanda Watkins MD; Yelena Alvarez MD [...] in OV> 01/05/2556 DD/ 6 TD/TT: 01/05/25947 Base Filler Operator: us [facility] External Provider IMG XR PROCEDURES Edited Result - Final * XR Elbow 1-2 Views Right (01/05/2025 8:27 AM EDT) Anatomical Region Laterality Modality Upper Extremities, Elbow Right Radiogr aphic Imaging 01/05/2025 8:27 AM EDT Narrative 01/05/2025 9:57 AM EDT [address] [address] XRay Report Signed Patient: Mary Lou Godwin MR#: [id number] : 1950 Acct:[id number] Age/Sex: 74 / F ADM Date: 01/05/25 Loc: HO.ED Attending Dr: Ordering Physician: Yelena Alvarez MD Date of Service: 01/05/25 Procedure(s): XR elbow RT 2V Accession Number(s): [id number] cc: Amanda Watkins MD; Yelena Alvarez MD [...] in OV> 01/05/2554 DD/ 6 TD/TT: 01/05/25947 Base Filler Operator: Procedure Note Donotuseinterpreter, Image - 01/05/[address] [address] XRay Report Signed Patient: Mary Lou Godwin ZMR#: M [id number] : 9Acct:[id number] Age/Sex: 74 / FADM Date: 01/05/25 Loc: HO.ED Attending Dr: Ordering Physician: Yelena Alvarez MD Date of Service: 01/05/25 Procedure(s): XR elbow RT 2V Accession Number(s): [id number] cc: Amanda Watkins MD; Yelena Alvarez MD [...] 01/05/25 0954 DD/ 08 TD/TT: 01/05/25 0948 Base Filler Operator: [facility] External Provider IMG XR PROCEDURES Edited Result - Final documented in this encounter Visit Diagnoses Not on filedocumented in this encounter Additional Health Concerns Assessment Noted Time PHQ-9 Depression Total Score: 0 09/01/19 25 1:18 PM EST documented as of this encounter Care Teams Newspaper Publisher Relationship Specialty Start Date End Date Amanda Watkins MD [address] [place] [address] PCP - General Family Medicine 04/07/19 Hiro Ram FNP [address] [place] [address] Nurse Practitioner Family Medicine 07/06/23 Raad Arias, Carlos [address] [place] [phone] Pharmacist Internal Medicine 10/19/24 Ja [facility] 08/10/24 03/12/25 [facility] 03/08/25 documented as of this encounter
== END 2025-07-26 14:32 ==
LOC: HO.HHCL 14:31
PROVIDERS: Internal Medicine; Internal Medicine Hypertension Specialist; PCP Internal Medicine; Visit Provider Internal Medicine
DX: I13.0 Hypertensive heart and chronic kidney disease with heart failure and stage 1 through stage 4 chronic kidney disease, or unspecified chronic kidney disease (principal); I50.32 Chronic diastolic (congestive) heart failure; N18.32 Chronic kidney disease, stage 3b; D63.8 Anemia in other chronic diseases classified elsewhere; E03.9 Hypothyroidism, unspecified
CPT/HCPCS: 36415; 80048; 84439; 84443; 85025